=== PATIENT | male | born 1950 | race Caucasian/White ===

== ENCOUNTER 2018-05-14 09:31 | Emergency (ER) | payer MEDICARE, SELFPAY ==
[2018-05-14 09:32] VITALS: BP 128/63; PULSE 83; RESP 16; TEMP 37; BMI 29.8
--- NOTE | 2018-05-14 10:31 | RAD_ITS ---
STUDY: X-RAY - LUMBAR SPINE REASON FOR EXAM: Male, 68 years old. Status post fall. Pain. TECHNIQUE: 3 view(s) of the lumbar spine were obtained. COMPARISON: None FINDINGS: Normal lumbar lordosis. There is no substantial scoliosis. There is a normal alignment of the vertebrae. Normal vertebral bodies and endplates. There is multilevel osteophyte formation and endplate spondylosis. The soft tissue structures are unremarkable. RAD/Lumbar Spine 2 or 3 Views IMPRESSION: Degenerative changes. Electronically Signed: Raymond Gates, at 11:20 EDT Tel , Service support ,
--- NOTE | 2018-05-14 10:31 | RAD_ITS ---
We are attempting to reach Luis M Andrade to discuss findings. An addendum with communication details will be sent when the communication is complete. STUDY: X-RAY - LEFT FOOT CLINICAL: Male, 68 years old. Trauma. TECHNIQUE: 3 view(s) of the foot. COMPARISON: None. FINDINGS: Acute essentially nondisplaced fracture of the medial malleolus and distal tibia is visualized. Normal talus, calcaneus, and tarsal bones. Normal visualized subtalar, talonavicular, calcaneocuboid, tarsal and tarsometatarsal articulations. Normal metatarsi. Normal metatarsophalangeal joint of the great toe. Normal tibial and fibular sesamoid bones. Normal interphalangeal joint of the great toe. Normal phalanges of the great toe. Normal second through fifth metatarsophalangeal joints. Normal interphalangeal joints and phalanges of the lesser toes. The soft tissue structures are unremarkable. RAD/Foot min 3 Views IMPRESSION: Acute essentially nondisplaced fracture of the medial malleolus and distal tibia is visualized. Tiny bone fragments near the base of the fifth metatarsal appears chronic. Accessory cuboid bone visualized. Electronically Signed: Raymond Yajaira, at 11:23 EDT Tel , Service support ,
--- NOTE | 2018-05-14 10:31 | RAD_ITS ---
STUDY: X-RAY - LEFT TIBIA AND FIBULA REASON FOR EXAM: Male, 68 years old. Pain. Status post fall. TECHNIQUE: 4 view(s) of the tibia and fibula were obtained. COMPARISON: None. FINDINGS: Normal visualized tibia. Normal visualized fibula. There is soft tissue swelling surrounding the ankle. RAD/Tibia & Fibula 2 Views IMPRESSION: Soft tissue swelling surrounding the ankle without definitive fractures visualized. If further evaluation is warranted, MRI can be obtained. Electronically Signed: Raymond Gates, at 11:19 EDT Tel , Service support ,
--- NOTE | 2018-05-14 11:20 | ED.DCSUM_ITS ---
- ER Visit Summary Date of Service: 05/14/18 Chief Complaint: Fall off a roof History of Present Illness: The patient is a 68 M who states that yesterday he was cutting limbs from a tree while standing on his garage when he sustained a fall. States that when he landed he landed on the left foot and ankle as well as his buttocks. He notes swelling and pain from the mid tibia inferiorly to the foot. He notes pain in the lower lumbar region. Denies any bowel or bladder dysfunction. Denies any loss of muscle strength or sensation. Physical Examination: Afebrile vital signs stable Gen: Well-nourished well-developed Head: Normocephalic atraumatic Eyes: Perrl EOMI ENT: TMs clear no rhinorrhea moist mucous membranes Neck: Supple no lymphadenopathy no JVD nontender CVS: Regular rate rhythm no murmurs normal S1-S2 Respiratory: No distress clear to auscultation bilaterally chest nontender Abdomen: Soft nontender nondistended normal bowel sounds no masses Back: There is tenderness in the midline and paraspinal musculature of the lower lumbar region. Extremity: Left ankle is swollen with ecchymosis particularly medially. There is no fibular head tenderness. Skin: Normal color no rash Neuro: alert orientated ?3 CN II-XII intact normal strength sensation reflexes Psych: Normal affect normal mood Test Results: X-rays of the lumbar spine, tibia and fibula, and foot were obtained. This demonstrates a nondisplaced fracture of the medial malleolus. Degenerative changes of the lumbar spine were noted. No obvious compression fracture. Emergency Department Course and Treatment: Patient was advised he needs to be nonweightbearing of the left lower leg. He was placed in a posterior stirrup Ortho-Glass splint. He already has crutches and will make sure they are adjusted to the right height. He does not have a orthopedic surgeon and Dr. Mitchell is on-call. Impression: 1. Fall 9 feet 2. Lumbar strain 3. Left ankle fracture (medial malleolus) -closed 4. Splint by physician This note was generated with [employer] dictation software. It may contain incorrect words, spelling, and punctuation that were not noted in review of the chart prior to signing ED Disposition - Plan for ED Patient: Disposition: Home or Assisted Living Instructions: ED Fx Ankle General, ED Sprain Strain Lumbar Prescriptions: Hydrocodone Bitart/Apap 5-325 [[place] 5MG-325MG] 1 tab PO Q6H PRN PRN 3 Days #10 tab PRN Reason: Pain Referrals: jO Huffman DO [STAFF PHYSICIAN] - Care Physician,No Primary [Primary Care Provider] - (Call to arrange orthopedic follow-up.) Additional Instructions: Do not walk on the left leg Avoid anti-inflammatories (like Motrin and Aleve) Please follow-up with orthopedics.
--- NOTE | 2018-05-14 11:31 | ED.RN ---
RADIOLOGY CALLED TO REPORT FINDING ON XRAY, THIS NURSE NOTIFIED DR YOUNGER, NFO'S AT THIS TIME
[2018-05-14 12:25] VITALS: BP 122/78; PULSE 78; RESP 16; O2SAT 98
== END 2018-05-14 12:27 | disposition home or self-care (01) ==
PROVIDERS: Emergency Provider Emergency Medicine
DX: S82.55XA Nondisplaced fracture of medial malleolus of left tibia, initial encounter for closed fracture (principal); S39.012A Strain of muscle, fascia and tendon of lower back, initial encounter; W13.2XXA Fall from, out of or through roof, initial encounter; Y93.H2 Activity, gardening and landscaping; Y92.008 Other place in unspecified non-institutional (private) residence as the place of occurrence of the external cause
CPT/HCPCS: 29515; 72100; 73590; 73630; 99282

== ENCOUNTER → 2018-05-17 11:12 | Outpatient (CLI) | payer MEDICARE, SELFPAY ==
[2018-05-14 09:32] VITALS: BMI 29.8
--- NOTE | 2018-05-17 11:20 | RAD_ITS ---
STUDY: X-RAY - LEFT ANKLE REASON FOR EXAM: Injury. TECHNIQUE: 3 view(s) of the ankle. COMPARISON: None. FINDINGS: There is a nondisplaced fracture of the medial malleolus. Normal tibiotalar articulation and ankle mortise. Normal visualized talus and calcaneus. The visualized subtalar, talonavicular, calcaneocuboid and tarsal articulations are normal. There is an overlying cast. RAD/Ankle min 3 Views IMPRESSION: Nondisplaced fracture of the medial malleolus. Electronically Signed: Michael Perera MD at 15:07 EDT Tel , Service support ,
== END ==
PROVIDERS: Referring Provider Orthopaedic Surgery; Visit Provider Orthopaedic Surgery
DX: M25.572 Pain in left ankle and joints of left foot (principal)
CPT/HCPCS: 73610

== ENCOUNTER → 2018-06-07 | Outpatient (CLI) | payer MEDICARE, SELFPAY ==
[2018-06-07 08:04] VITALS: BMI 29.8
--- NOTE | 2018-06-07 08:22 | RAD_ITS ---
STUDY: X-RAY - LEFT ANKLE REASON FOR EXAM: Male, 68 years old. Left-sided ankle pain and swelling. TECHNIQUE: 3. view(s) of the ankle. COMPARISON: Radiographs of the left ankle dated May 17, 2018. FINDINGS: Normal visualized distal tibia and fibula. There is residual deformity of the medial malleolus secondary to previous fracture. Normal tibiotalar articulation and ankle mortise. Normal visualized talus and calcaneus. The joint spaces are within normal limits. The visualized metatarsals have a grossly normal appearance. There is mild soft tissue swelling. The cast has been removed since the previous study. RAD/Ankle min 3 Views IMPRESSION: Residual deformity medial malleolus possibly related to healed fracture. Electronically Signed: Heather Trevino MD at 18:42 EDT , Service support ,
== END | disposition home or self-care (01) ==
LOC: HPRAD 08:08
PROVIDERS: Referring Provider Orthopaedic Surgery; Visit Provider Orthopaedic Surgery
DX: S82.55XA Nondisplaced fracture of medial malleolus of left tibia, initial encounter for closed fracture (principal)
CPT/HCPCS: 73610

== ENCOUNTER → 2018-06-28 08:01 | Outpatient (CLI) | payer MEDICARE, SELFPAY ==
[2018-06-28 08:02] VITALS: BMI 29.8
--- NOTE | 2018-06-28 08:04 | RAD_ITS ---
HISTORY: Reassess fracture. EXAM/TECHNIQUE: XR Ankle Min 3 Views: Left. COMPARISON: 06/07/18 radiographs. FINDINGS: # of images incl. paperwork: 3 The medial malleolar fracture is almost completely healed though with the fracture line still faintly visible. No new fractures are evident. Alignment is anatomic. Mild degenerative change for age. RAD/Ankle min 3 Views IMPRESSION: Continued healing of the medial malleolar fracture. The fracture line remains faintly visible. at 0402 Reported and signed by: Howie Jose MD Electronically Signed: Howie Jose, at 4:01 EDT Tel , Service support ,
== END ==
PROVIDERS: PCP Family Medicine; Visit Provider Orthopaedic Surgery
DX: S82.52XD Displaced fracture of medial malleolus of left tibia, subsequent encounter for closed fracture with routine healing (principal)
CPT/HCPCS: 73610

== ENCOUNTER 2018-07-06 10:42 | Outpatient (RCR) | payer MEDICARE, SELFPAY ==
[2018-06-28 08:02] VITALS: BMI 29.8
--- NOTE | 2018-07-06 11:32 | HP.PTEVAL ---
Patient's Visit Information ABELARDO ROBERTS is a 68 year old M referred to Physical Therapy by Oj Huffman DO with a diagnosis of Left Malleolus Fracture. Date of Evaluation: 07/06/18 Physical Therapist: Fanny Obregon DPT - Visit Plan Plan: Patient is doing excellent after fracture he has very little pain with full ROM, strength and good balance- PT feels confident he will return to all normal activities without further incidence. Gave home exercise program and will d/c from PT - Subjective Findings: Patient reports that he fell off a garage roof and fractured left ankle on the inside 05/14/18- no surgery. Patient reports that since he has started to put weight on it its been a little sore but he has had more lower back problems. The ankle doesn't slow him down. Pain s located on the outside of the ankle. Worst: 2/10 Best: 0/10 most of the time. He took the boot off yesterday and feels great. No radiating pain- reports that the pain is dull and achy. No N/T in the toes. Dr. Padilla had x-rays and was happy with how things were healing. 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 PMHx/Meds: no changes since saw MD Padilla. - Objective Posture: good throughout. Gait: no deviation noted. Stairs:asc/desc 8 recip with 1 HR. Heel Raise/Toe Raise: able without UE A- good motion. SLS: 8 seconds then requires UE for assist. ROM:DF: 8 degrees, PF: 70 degrees, Ever: 30 degrees Inv: 40 degrees. Strength: 5/5 in ankle 5/5 knee - Rehabilitation Potential Physical Therapy Diagnosis: Patient is doing excellent after fracture he has very little pain with full ROM, strength and good balance- PT feels confident he will return to all normal activities without further incidence. Gave home exercise program and will d/c from PT Rehabilitation Potential: Excellent - Anticipated Interventions Thank you for the opportunity to evaluate your patient. For Medicare and Medicare HMO plans, please review the plan of care and approve it. It will need to be FAXED BACK to us at [phone] for Medicare purposes. For Medicare only, by signing this I certify the plan of care. Please let me know if there are questions or concerns regarding this plan of care. Physician Signature: Date:
--- NOTE | 2018-10-10 14:34 | HP.PT.NRP ---
HP - Discharge Summary (1) - Patient Information ABELARDO ROBERTS was seen in my office for initial evaluation on 07/06/18. The following Plan of Care was established for this patient: This patient was last seen in our office . Pertinent comments regarding their Physical therapy will appear below: At this point I will be discontinuing this patient from physical therapy. I would be happy to see this patient again in the future if found appropriate by the physician. Thank you! DARLINE SowT
== END 2018-07-06 19:00 | disposition home or self-care (01) ==
LOC: PT 10:42
PROVIDERS: Family Provider Family Medicine; PCP Family Medicine; Visit Provider Orthopaedic Surgery
DX: S82.52XD Displaced fracture of medial malleolus of left tibia, subsequent encounter for closed fracture with routine healing (principal)
CPT/HCPCS: 97110; 97161

== ENCOUNTER 2018-07-09 16:54 | Emergency (ER) | payer MEDICARE, SELFPAY ==
[2018-06-28 08:02] VITALS: BMI 29.8
[2018-07-09 16:54] VITALS: BP 137/78; PULSE 81; RESP 16; TEMP 36.7; O2SAT 100; BMI 28.7
--- NOTE | 2018-07-09 17:37 | CT_ITS ---
STUDY: CT ABDOMEN AND PELVIS WITH CONTRAST REASON FOR EXAM: Male, 68 years old. Abdominal pain RADIATION DOSAGE (If Supplied By Facility): CTDIvol = ( 14.91 ) mGy, DLP = ( 797.64 ) mGycm TECHNIQUE: Transaxial images were obtained from the dome of the diaphragm to the symphysis pubis without oral contrast. 100ML ml of Isovue 300 contrast was administered. Sagittal and coronal images were reconstructed. Individualized dose optimization techniques were used for this CT. COMPARISON: None. FINDINGS: There are calcified granulomata noted in the lung bases. The visualized portions of the heart and pericardium are within normal limits. There are no calcified gallstones present. The liver is within normal limits. There is a calcified granuloma noted in the liver. There are no suspicious hepatic lesions. The spleen is normal in size. There are calcified granulomata noted in the spleen The pancreas is within normal limits. The adrenal glands are within normal limits. There are no renal or ureteral stones. There is no hydronephrosis. There are no focal renal lesions. There is a mucosal outpouching of the distal stomach with associated wall thickening (image 42 series 601) which likely represents a gastric ulcer with adjacent inflammation. There is adjacent mild mesenteric lymphadenopathy (image 42 series 2) and a malignant ulcer should be excluded. There is no bowel obstruction or inflammation. The appendix is visualized and appears normal. There is a small left inguinal hernia which contains nonobstructed bowel. There is a small right inguinal hernia which contains the right anterior wall of the urinary bladder. There is a 4.5 x 4.0 cm infrarenal abdominal aortic aneurysm There is no abdominal or pelvic free air, free fluid, fluid collection or lymphadenopathy. There is a fracture of the superior endplate of the L2 vertebral body which appears acute to subacute in nature. Correlation for pain in this area is recommended. CT/Abdomen/Pelvis WITH Contrast IMPRESSION: Findings likely representing a gastric ulcer with adjacent inflammation. Adjacent mild mesenteric lymphadenopathy. A malignant ulcer should be excluded. No bowel obstruction. Normal appendix. Left inguinal hernia which contains nonobstructed bowel. Right inguinal hernia which contains a small portion of the urinary bladder. 4.5 x 4.0 cm infrarenal abdominal aortic aneurysm. Fracture of the superior endplate of the L2 vertebral body which appears acute to subacute in nature. Correlation for pain in this area is recommended. Electronically Signed: Christiano Boggs, at 20:08 EDT Tel , Service support ,
--- NOTE | 2018-07-09 17:38 | EKG12_ITS ---
Test Reason : ABD PAIN Blood Pressure : / mmHG Vent. Rate : 063 BPM Atrial Rate : 063 BPM P-R Int : 128 ms QRS Dur : 100 ms QT Int : 370 ms P-R-T Axes : 070 061 064 degrees QTc Int : 378 ms Normal sinus rhythm Normal ECG Confirmed by JENNIFER CALLE, DOUG ([id number]), television news video editor BALBINA CASTILLO ([id number]) on 07/10/2018 11:53:48 AM Referred By: MATT Confirmed By:DOUG RODRIGUEZ MD
[2018-07-09] MEDS: Ondansetron 4 MG/2 ML Vial IV (17:51)
[2018-07-09] MEDS: 0.9% Normal Saline 1,000 ML 1000 ML IV (17:51)
[2018-07-09 17:54] LABS: Absolute Neutrophil Count 4.2 X10^3/uL (2.0-7.7); Basophil# 0.02 X10^3/uL; Basophil% 0.3 % (0-1); Eosinophil# 0.05 X10^3/uL; Eosinophils% 0.8 % (0-5); Hematocrit 29.9 % (40-54); Hemoglobin 9.3 g/dl (13.0-16.5); Lymphocyte % 23.8 % (19-41); Mean Corp Hgb Conc 31.1 g/gl (32-36); Mean Corpuscular Volume 86.7 fL (80-94); Mean Platelet Vol. 7.7 fl (6.2-12.0); Monocyte# 0.53 X10^3/uL; Monocyte% 8.4 % (0-10); Neutrophil # 4.21 X10^3/uL (2.7-7.7); Neutrophil % 66.7 % (47-70); POSITIVE COUNT NO; POSITIVE DIFFERENTIAL NO; POSITIVE MORPHOLOGY NO; Platelet Count 318 K/mm3 (150-450); RBC Distribution Width CV 13.8 % (11.6-14.6); Red Blood Count 3.45 M/mm3 (4.6-6.2); White Blood Count 6.3 K/mm3 (4.4-11.0)
[2018-07-09 18:18] LABS: ALB/GLOB Ratio 0.8 RATIO (0.9-2.4); AST(SGOT) 13 U/L (15-37); Alanine Aminotransfer ALT/SGPT 15 U/L (16-61); Albumin, Serum 3.1 g/dL (3.2-5.0); Alkaline Phosphatase 98 U/L (45-117); Anion Gap 5 (5-15); BUN 13 mg/dL (7-18); BUN/Creat Ratio 12.6 RATIO (10-20); Calcium,Total 8.4 mg/dL (8.5-10.1); Chloride 103 mmol/L (98-107); Creatinine, Serum 1.03 mg/dL (0.70-1.30); EST Glomerular Filtration Rate 76 mL/min (>60); Est Glom Filt Rate - Afr Amer 92 mL/min (>60); Estimated Creatinine Clearance 61.94 ml/min; Globulin 3.9 g/dL (2.2-4.2); Glucose 133 mg/dL (74-106); Lipase 117 U/L (73-393); Potassium 4.4 mmol/L (3.5-5.1); Sodium Level 137 mmol/L (136-145)
--- NOTE | 2018-07-09 18:32 | ED.VISSUMM ---
- ER Visit Summary Date of Service: 07/09/18 Chief Complaint: Abdominal pain History of Present Illness: The patient is a 68 M who presents with abdominal pain that has been getting worse over the past 2 days. Patient states the pain is over the epigastric area. Patient states the pain is constant and aching. Patient admits to nausea but denies any vomiting. Patient denies any diarrhea, melena, or hematochezia. Patient denies any urinary complaints. Patient denies any chest pain or shortness of breath. Patient states nothing makes the pain better or worse. Physical Examination: Vital signs are stable. Patient is afebrile. Patient is in no acute distress. Oral mucosa is pink and moist. Neck is supple. Trachea is midline. There is no JVD noted. Heart was regular rate and rhythm. Lungs are clear and equal bilaterally. Abdomen is soft. Bowel sounds are normal. There is some mild epigastric tenderness. There is no rebound or guarding noted. Cranial nerves II through XII are intact. There are no focal motor or sensory deficits noted. Test Results: CBC showed a hemoglobin of 9.3 and hematocrit 29.9. There are no prior values to compare with. Comprehensive metabolic profile was normal. Troponin was normal. EKG showed normal sinus rhythm with a rate of 63. There are no acute ST or T wave changes noted. CT scan of the abdomen and pelvis was obtained. There is a gastric ulcer with some inflammation. There is some adjacent lymphadenopathy. There is no bowel obstruction. There is a left inguinal hernia which contains nonobstructive bowel. There is a right inguinal hernia which contains a small portion of the urinary bladder. There is a 4.5 x 4 cm infrarenal abdominal aortic aneurysm. These were interpreted by the radiologist. Emergency Department Course and Treatment: Patient was given IV fluids and Zofran here. Patient was feeling better on reevaluation. Patient was given a prescription for Prilosec. Patient was instructed to follow-up with his primary care physician in 3 to 5 days. Patient understood and was agreeable with the plan. All questions were answered. Disposition: Discharge home Impression: 1. Gastric ulcer This note was generated with [employer] dictation software. It may contain incorrect words, spelling, and punctuation that were not noted in review of the chart prior to signing ED Disposition - Plan for ED Patient: Disposition: Home or Assisted Living Diagnosis: Gastric ulcer Instructions: ED PUD Prescriptions: Omeprazole [Prilosec] 20 mg PO DAILY #30 cap Referrals: Ezekiel Carrasco MD [Primary Care Provider] - 3-5 Days
[2018-07-09 19:09] VITALS: RESP 18
[2018-07-09 21:21] VITALS: BP 130/65; PULSE 75; RESP 17
== END 2018-07-09 21:22 | disposition home or self-care (01) ==
PROVIDERS: Emergency Provider Emergency Medicine; Family Provider Family Medicine; PCP Family Medicine
DX: K25.9 Gastric ulcer, unspecified as acute or chronic, without hemorrhage or perforation (principal); K40.20 Bilateral inguinal hernia, without obstruction or gangrene, not specified as recurrent; I71.4 Abdominal aortic aneurysm, without rupture; Z72.0 Tobacco use
CPT/HCPCS: 74177; 80053; 83690; 84484; 85025; 93005; 96361; 96374; 99283; J7030; Q9967; A4216; J2405

== ENCOUNTER → 2018-07-17 14:23 | Outpatient (CLI) | payer MEDICARE, SELFPAY ==
[2018-07-09 16:54] VITALS: BMI 28.7
[2018-07-17 16:03] LABS: Hematocrit 29.6 % (40-54); Mean Corp Hgb Conc 30.4 g/gl (32-36); Mean Corpuscular Hgb 25.9 pg (27.0-32.0); Mean Corpuscular Volume 85.1 fL (80-94); Mean Platelet Vol. 8.8 fl (6.2-12.0); Platelet Count 373 K/mm3 (150-450); RBC Distribution Width CV 14.6 % (11.6-14.6); RBC Distribution Width SD 43.6 fl (35.1-43.9); RET-HE 18.8 pg (30-35); Red Blood Count 3.48 M/mm3 (4.6-6.2); Reticulocyte Count 1.23 % (0.5-1.5); White Blood Count 5.7 K/mm3 (4.4-11.0)
[2018-07-17 16:07] LABS: Scan Indicated on CBC? Y/N YES- FLAGS NOTED
[2018-07-17 16:11] LABS: Anion Gap 8 (5-15); BUN 16 mg/dL (7-18); BUN/Creat Ratio 14.8 RATIO (10-20); Calcium,Total 8.8 mg/dL (8.5-10.1); Chloride 102 mmol/L (98-107); Creatinine, Serum 1.08 mg/dL (0.70-1.30); EST Glomerular Filtration Rate 72 mL/min (>60); Est Glom Filt Rate - Afr Amer 87 mL/min (>60); Ferritin 14 ng/mL (26-388); Glucose 106 mg/dL (74-106); Iron 12 ug/dL (65-175); Potassium 4.4 mmol/L (3.5-5.1); Sodium Level 139 mmol/L (136-145)
== END ==
PROVIDERS: Family Provider Family Medicine; PCP Family Medicine; Visit Provider Family Medicine
DX: D64.9 Anemia, unspecified (principal); R03.0 Elevated blood-pressure reading, without diagnosis of hypertension
CPT/HCPCS: 36415; 80048; 82728; 83540; 85027; 85045

== ENCOUNTER → 2018-08-04 11:50 | Outpatient (CLI) | payer MEDICARE, SELFPAY ==
[2018-07-09 16:54] VITALS: BMI 28.7
--- NOTE | 2018-08-04 11:52 | RAD_ITS ---
STUDY: X-RAY - LUMBAR SPINE REASON FOR EXAM: Male, 68 years old. Back pain TECHNIQUE: 5 view(s) of the lumbar spine were obtained. COMPARISON: CT from 07/09/2018 , lumbar spine x-ray of 05/14/2018 FINDINGS: Normal lumbar lordosis. There is no substantial scoliosis. There is a normal alignment of the vertebrae. There is diffuse demineralization with multi-level endplate spondylosis. Disc space narrowing at multiple levels, most conspicuous at L5-S1 with moderate facet arthropathy at L4-L5 and L5-S1. Compression deformities of L2 and L5 are similar since prior abdomen/pelvis CT although increased degree of compression/superior trabecular compression of L2 since prior lumbar spine x-ray. Abdominal aortic atherosclerosis and aneurysm as seen on prior CT. RAD/L/S Spine Min 4 Views IMPRESSION: 1. L2 and L5 compression fractures, stable since 07/09/2018 CT (increased L2 compression since prior lumbar spine x-ray 05/14/2018). 2. Facet dominant degenerative changes, as above. 3. Abdominal aortic aneurysm. Electronically Signed: Aamir Ledesma MD at 11:21 EDT , Service support ,
== END ==
PROVIDERS: Family Provider Family Medicine; PCP Family Medicine; Referring Provider Family Medicine; Visit Provider Family Medicine
DX: M54.9 Dorsalgia, unspecified (principal)
CPT/HCPCS: 72110

== ENCOUNTER → 2018-10-05 14:59 | Outpatient (CLI) | payer MEDICARE, SELFPAY ==
--- NOTE | 2018-10-05 15:11 | MRI_ITS ---
STUDY: MRI LUMBAR SPINE WITHOUT CONTRAST REASON FOR EXAM: Male, 68 years old. Lumbar fractures and pain right leg TECHNIQUE: Standardized fat and water weighted pulse sequences were obtained in the sagittal and axial planes. COMPARISON: Radiograph July 27, 2018 FINDINGS: Mild compression fracture T12 and L5 with less than 5% loss of height. T12-L1: Normal endplates. Normal disc height, hydration and morphology. Normal bilateral facet joints. Normal central canal and bilateral lateral recesses. Normal bilateral intervertebral neural foramina. Normal lumbar lordosis. There is no substantial scoliosis. Normal conus medullaris that terminates at the L1 level. L1-2: Normal endplates. Normal disc height, hydration and morphology. Normal bilateral facet joints. Normal central canal and bilateral lateral recesses. Normal bilateral intervertebral neural foramina. L2-3: Normal endplates. Normal disc height, hydration and morphology. Normal bilateral facet joints. Normal central canal and bilateral lateral recesses. Normal bilateral intervertebral neural foramina. Mild compression fracture L2 with 5-10% loss of height and T1 and T2 lengthening. No retropulsion. L3-4: Normal endplates. Mild broadbase annular bulge. Normal disc height, hydration and morphology. Normal bilateral facet joints. Normal central canal and bilateral lateral recesses. Moderate narrowing bilateral intervertebral neural foramina. L4-5: Normal endplates. Normal disc height, hydration and morphology. Hypertrophic bilateral facet joints. Normal central canal and bilateral lateral recesses. Narrowed bilateral intervertebral neural foramina. L5-S1: Normal endplates. Normal disc height, hydration and morphology. Normal bilateral facet joints. Normal central canal and bilateral lateral recesses. Narrowed bilateral intervertebral neural foramina. Mild annular disc marginal osteophyte. Normal visualized sacral ala. Normal visualized paraspinous soft tissue structures. 4.3 cm abdominal aortic aneurysm. MRI/Spine Lumbar (Routine) IMPRESSION: Multiple mild compression fractures as above. L2 appears acute. No retropulsion. Multilevel neural foraminal narrowing. Electronically Signed: Prem Chilel MD at 22:44 EDT , Service support ,
--- NOTE | 2018-10-05 15:15 | RAD_ITS ---
STUDY: X-RAY - ORBITS REASON FOR EXAM: Male, 68 years old. This study is being performed as a clearance examination for exclusion of orbital metal, prior to the performance of an MRI examination. TECHNIQUE: 2 view(s) of the orbits were obtained. COMPARISON: None. FINDINGS: Normal bilateral orbits without a metallic orbital foreign body. Normal visualized facial bones. Normal paranasal sinuses. The soft tissue structures are unremarkable. RAD/Orbits for Foreign Body IMPRESSION: No demonstrated metallic orbital foreign body. The patient is cleared for an MRI examination. Electronically Signed: Lebron Briseno, at 15:32 EDT , Service support ,
== END ==
PROVIDERS: Family Provider Family Medicine; PCP Family Medicine; Referring Provider Anesthesiology; Visit Provider Anesthesiology
DX: M54.16 Radiculopathy, lumbar region (principal)
CPT/HCPCS: 70030; 72148

== ENCOUNTER → 2018-11-02 06:23 | Outpatient (CLI) | payer MEDICARE, SELFPAY ==
[2018-11-01 08:36] VITALS: BMI 26.8
[2018-11-02 07:17] LABS: Absolute Neutrophil Count 4.2 X10^3/uL (2.0-7.7); Basophil# 0.06 X10^3/uL; Basophil% 0.9 % (0-1); Eosinophil# 0.17 X10^3/uL; Eosinophils% 2.5 % (0-5); Hematocrit 35.6 % (40-54); Hemoglobin 9.9 g/dL (13.0-16.5); Mean Corp Hgb Conc 27.8 g/dL (32-36); Mean Corpuscular Hgb 22.5 pg (27.0-32.0); Mean Corpuscular Volume 80.9 fL (80-94); Mean Platelet Vol. 8.7 fl (6.2-12.0); Monocyte# 0.69 X10^3/uL; NRBC Flagged by Analyzer 0 % (0-5); Neutrophil # 4.19 X10^3/uL (2.7-7.7); Neutrophil % 60.5 % (47-70); POSITIVE MORPHOLOGY YES; Platelet Count 200 K/mm3 (150-450); RBC Distribution Width CV 21.1 % (11.6-14.6); RBC Distribution Width SD 61.8 fl (35.1-43.9); White Blood Count 6.9 K/mm3 (4.4-11.0)
[2018-11-02 07:31] LABS: Differential Indicated SCAN CRITERIA MET
[2018-11-02 07:48] LABS: Anisocytosis 1+; Hypochromasia 2+; Platelet Estimate ADEQUATE (ADEQ)
[2018-11-02 07:52] LABS: Cholesterol 189 mg/dL (200); High Density Lipoprotein 55 mg/dL; Triglycerides 121 mg/dL; Very Low Density Lipoprotein 24 mg/dL (5-40)
[2018-11-02 08:00] LABS: Anion Gap 4 (5-15); BUN 16 mg/dL (7-18); BUN/Creat Ratio 16.8 RATIO (10-20); Calcium,Total 8.8 mg/dL (8.5-10.1); Chloride 107 mmol/L (98-107); Creatinine, Serum 0.95 mg/dL (0.70-1.30); EST Glomerular Filtration Rate 84 mL/min (>60); Est Glom Filt Rate - Afr Amer 101 mL/min (>60); Glucose 100 mg/dL (74-106); Potassium 4.3 mmol/L (3.5-5.1); Sodium Level 140 mmol/L (136-145)
== END ==
PROVIDERS: Family Provider Family Medicine; PCP Family Medicine; Referring Provider Surgery; Visit Provider Surgery
DX: I10 Essential (primary) hypertension (principal); D64.9 Anemia, unspecified; K27.9 Peptic ulcer, site unspecified, unspecified as acute or chronic, without hemorrhage or perforation; R03.0 Elevated blood-pressure reading, without diagnosis of hypertension
CPT/HCPCS: 36415; 80048; 80061; 85025

== ENCOUNTER → 2018-11-13 12:18 | Outpatient (CLI) | payer MEDICARE, SELFPAY ==
[2018-11-01 08:36] VITALS: BMI 26.8
--- NOTE | 2018-11-13 12:20 | CDU_ITS ---
Reason For Study: Left carotid bruit Rt. Velocities/BP Lt. Velocities/BP Prox CCA 70.8/16 cm/sec. Prox CCA 87.9/11.8 cm/sec. Mid CCA 55.2/17.3 cm/sec. Mid CCA 69.5/13 cm/sec. Dist CCA 46.6/12.6 cm/sec. Dist CCA 84.3/10.6 cm/sec. Prox ICA 41.3/9.9 cm/sec. Prox ICA 75.9/16.7 cm/sec. Mid ICA 65.7/18.6 cm/sec. Mid ICA 62.4/19.2 cm/sec. Dist ICA 70.2/23 cm/sec. Dist ICA 80.6/24.1 cm/sec. Rt. ICA/CCA = 1.3. Lt. ICA/CCA = 1.0. Prox ECA 67.4/6 cm/sec. Prox ECA 59.7/4.4 cm/sec. Rt. Vert. 67.4/20.1 cm/sec. Lt. Vert. 73.2/20.4 cm/sec. Right Extracranial There is homogeneous, smooth atherosclerotic plaque noted in the right common carotid artery. There is heterogeneous, irregular atherosclerotic plaque noted in the right internal carotid artery. There is heterogeneous, irregular atherosclerotic plaque noted in the right external carotid artery. Antegrade flow is noted in the right vertebral artery. Left Extracranial There is homogeneous, smooth atherosclerotic plaque noted in the left common carotid artery. There is heterogeneous, irregular atherosclerotic plaque noted in the left internal carotid artery. The atherosclerotic plaque causes acoustic shadowing. There is heterogeneous, irregular atherosclerotic plaque noted in the left external carotid artery. Antegrade flow is noted in the left vertebral artery. Procedure Carotid Duplex 51681. Exam performed in department. Interpretation Summary Irregular calcific plague right distsal common carotid and proximal right internal and external carotids <50% stenosis right internal carotid <50% stenosis right external carotid Irregular calcific plague proximal left internal and external carotids <50% stenosis left internal carotid <50% stenosis left external carotid Patent, antegrade, and <50% stenosis bilateral vertebrals Ordering Physician: Fortunato Kaye Referring Physician: Andrés Carrasco MD Performed By: Hiwot Ferrari RVT
--- NOTE | 2018-11-13 12:20 | ECHOD_ITS ---
Reason For Study: Abnormal EKG Procedure This was a 2D Doppler, Color Flow transthoracic echocardiogram. Exam performed in department. Left Ventricle Normal LV size. Concentric left ventricular hypertrophy. The estimated ejection fraction is 60 %. No evidence for diastolic dysfunction. No regional wall motion abnormalities noted. Right Ventricle Normal RV size. Normal systolic function. Atria Normal left atrium. Normal right atrium. No doppler evidence for ASD. Mitral Valve There is no mitral valve stenosis. Trivial mitral valve insufficiency. Tricuspid Valve There is no tricuspid stenosis. Unable to estimate RV systolic pressure due to insufficient tricuspid regurgitant envelope. Trivial tricuspid valve insufficiency. Aortic Valve Moderate diffuse aortic valve thickening. Severe aortic stenosis. Moderate (2+) aortic valve insufficiency. Pulmonic Valve There is no pulmonic valvular stenosis. No pulmonic valve insufficiency. Great Vessels Normal aortic root. Pericardium/Pleural No pericardial effusion. MMode/2D Measurements & Calculations LVIDd: 5.8 cm IVSd: 1.3 cm LVOT diam: 2.0 cm LVIDs: 3.5 cm LVPWd: 1.1 cm LVOT area: 3.1 cm2 RVDd: 3.1 cm FS: 39.9 % ACS: 0.52 cm LAV(MOD-bp): 51.5 ml Aortic Valve Planimetry: 0.50 cm2 LA dimension: 3.7 cm LAV(MOD-bp) Indexed: 27.7 ml/m2 LAV(MOD-sp2): 52.5 ml LAV(MOD-sp4): 46.7 ml LA A4 area: 16.8 cm2 RA A4 area: 17.2 cm2 Time Measurements MV dec time: 0.17 sec Doppler Measurements & Calculations MV E max pasha: 79.9 cm/sec Lat Peak E' Pasha: 9.8 cm/sec Med Peak E' Pasha: 7.5 cm/sec MV A max pasha: 94.0 cm/sec E/E' lat: 8.1 E/E' med: 10.7 MV E/A: 0.85 MV V2 max: 95.9 cm/sec MV P1/2t max pasha: 79.3 cm/sec Ao V2 max: 513.3 cm/sec MV max P.7 mmHg MV P1/2t: 76.7 msec Ao max P.4 mmHg MV V2 mean: 52.7 cm/sec MV dec slope: 302.6 cm/sec2 Ao V2 mean: 370.0 cm/sec MV mean P.3 mmHg Ao mean P.5 mmHg MV V2 VTI: 27.4 cm MVA(P1/2t): 2.9 cm2 Ao V2 VTI: 119.5 cm MVA(VTI): 2.4 cm2 JAVID(I,D): 0.56 cm2 JAVID(V,D): 0.58 cm2 AI max pasha: 526.4 cm/sec LV V1 max: 94.9 cm/sec SV(LVOT): 66.9 ml AI max P.8 mmHg LV V1 max P.6 mmHg LV V1 mean P.8 mmHg AI dec slope: 451.6 cm/sec2 LV V1 mean: 61.1 cm/sec AI P1/2t: 341.4 msec LV V1 VTI: 21.4 cm PA V2 max: 85.7 cm/sec Interpretation Summary The estimated ejection fraction is 60 %. Trivial mitral valve insufficiency. Unable to estimate RV systolic pressure due to insufficient tricuspid regurgitant envelope. Trivial tricuspid valve insufficiency. Severe aortic stenosis. Moderate (2+) aortic valve insufficiency. No evidence for diastolic dysfunction. Ordering Physician: Fortunato Kaye Referring Physician: Andrés Carrasco MD Performed By: Con Mccarty RCS
== END ==
PROVIDERS: Family Provider Family Medicine; PCP Family Medicine; Referring Provider Surgery; Visit Provider Surgery
DX: R93.1 Abnormal findings on diagnostic imaging of heart and coronary circulation (principal); R09.89 Other specified symptoms and signs involving the circulatory and respiratory systems; R22.2 Localized swelling, mass and lump, trunk
CPT/HCPCS: 93306; 93880

== ENCOUNTER 2018-11-17 07:21 | Day surgery (SDC) | payer MEDICARE, SELFPAY ==
[2018-11-01 08:36] VITALS: BMI 26.8
--- NOTE | 2018-11-01 09:06 | HP_ITS ---
Intake Vital Signs 11/01/18 Height 5 ft 6 in 11/01/18 Weight: 166 lb 11/01/18 Body Mass Index (BMI) 26.8 11/01/18 Blood Pressure 158/66 H 11/01/18 Blood Pressure Location Rt brachial 11/01/18 Respiratory Rate 16 11/01/18 Pulse Rate 69 11/01/18 Pulse Source Monitor 11/01/18 Temperature 98.2 F 11/01/18 Pulse Ox 96 11/01/18 Oxygen Delivery Method room air 11/01/18 Body Mass Index (BMI) 28.7 11/01/18 Height 5 ft 6 in 11/01/18 Weight: 166 lb 11/01/18 Body Mass Index (BMI) 26.8 11/01/18 Blood Pressure 158/66 H 11/01/18 Blood Pressure Location Rt brachial 11/01/18 Respiratory Rate 16 11/01/18 Pulse Rate 69 11/01/18 Pulse Source Monitor 11/01/18 Temperature 97.5 F L 11/01/18 Pulse Ox 96 11/01/18 Oxygen Delivery Method room air 10/25/18 Body Mass Index (BMI) 28.7 Intake Visit Reasons: Lump on Back Upholstery Covers Inspector Required: No Is patient in pain?: No Allergies No Known Allergies Allergy (Verified 11/01/18 08:23) Medications lisinopril 20 mg tablet 20 mg PO DAILY #30 tab 11/01/18 [History Confirmed 11/01/18] tiotropium bromide 2.5 mcg/actuation mist for inhalation 2 puff INHALATION DAILY #4 g 11/01/18 [History Confirmed 11/01/18] [facility] Medical History Anemia (Acute) Subcutaneous mass of back (Acute) PUD (peptic ulcer disease) (Acute) Cough (Acute) SOB (shortness of breath) (Acute) Hypertension (Chronic) Arthritis (Acute) Surgical History No history of previous surgery (Acute) Family History Sister Asthma Mother Arthritis Diabetes Brother Cancer Unsure what kind- just a lump on his neck Social History (Updated 11/01/18 @ 09:06 by Abelardo Kaye MD) Smoking Status: Current every day smoker quit status: considering quitting alcohol intake: former substance use type: does not use caffeine: Yes what type of physical activity do you participate in: other frequency: 3-4 times per week seatbelt use: always HPI HPI HPI: ABELARDO ROBERTS, is a 68 M who presents to the office today for HPI HPI Surgical H&P: Yes HPI: ABELARDO ROBERTS, is a 68 M who presents to the office today for surgical consultation regarding a mass of his upper back. During the interview it was detected that he has multiple significant issues. He states to a certain degree he is aware of some of them but to another degree not aware. We had an opportunity to discuss multiple different particular findings with him today. 68-year-old gentleman who has had a mass on his back for a year that is been progressively enlarging. He was wondering as to the etiology. When he leans back in the chair he can feel it and it feels taut. He has not had any drainage. Then history continued to overall. May 2018 he fell from a garage. He was seen in the emergency room because he was complaining of back pain and ankle pain. By report he was told that he had a 4.3 cm abdominal aortic aneurysm. He is also seeing pain management. Then he was very nonspecific but complained that he had some epigastric pain and vomited some blood so July 09, 2018 he went back to the emergency room. A CT scan was obtained demonstrating multiple findings. There was felt to be mucosal outpouching of the distal stomach with wall thickening suspected gastric ulcer with adjacent inflammation there was adjacent mild mesenteric adenopathy could not exclude a malignant ulcer. There is a left inguinal hernia with nonobstructive bowel involvement. There was a right inguinal hernia with involvement of the anterior wall of the urinary bladder. He has a 4.5 x 4 similar infrarenal abdominal aortic aneurysm. There is a fracture of L2. An EKG showed normal sinus rhythm. White blood cell count was 6.3 with a hemoglobin 9.3 hematocrit 29.9 platelet count 3 and 18,000 with 66% segs. BUN is 13 creatinine 1.03 with a glucose of 133. Troponin was normal. Liver function tests were normal. On October 05, 2018 he had a spine MRI showing multiple mild compression fractures. L2 appeared acute. Multilevel neuroforaminal narrowing. On my exam today I detected both carotid and cardiac murmur. He reminds me that he did have a remote echocardiogram. We investigated the previous [facility] material June 08, 2012 identify an echocardiogram with an ejection fraction of 60%. And mild mitral leaflet thickening. 1+ tricuspid regurgitation. Mild aortic stenosis with 1-2+ aortic insufficiency. The gradient was peak over mean 27 over 12 mmHg with a V-max of 2.6 m/s. There has been no prior echocardiogram for comparison ROS General General: No weight change, appetite, fatigue, colon cancer, breast cancer or weakness HEENT HEENT: No difficulty swallowing, eye injury, eye surgery, swollen glands or hoarseness Endo Endocrine: No thyroid disease, diabetes mellitus, thyroid cancer, Hair loss, heat intolerance or cold intolerance Skin Skin: No rash or changing moles Musc Musculoskeletal: Yes back problems and arthritis; no rheumatoid arthritis, gout or joint pain Cardio Cardiovascular: Yes high blood pressure; no murmur, pacemaker, heart disease, atrial fibrillation, heart attack, heart stent, palpitations, shortness of breat with exertion or chest pain Psych Psychiatric: No depression, anxiety or hearing voices Resp Respiratory: Yes shortness of breath, No sleep apnea, Yes cough, No COPD, No asthma, No emphysema, No wheezing Gastro Gastrointestinal: No abdominal pain, No nausea or vomiting, No diarrhea, No constipation, No blood in stool, No acid reflux, No hemorrhoids, Yes ulcers, No gallbladder problem, No black,tarry stools Miguel A Hematologic: No blood thinners, No blood disorders, No bleeding, Yes anemia, No blood clots Neuro Neurologic: No system reviewed and no additional complaints, except as docu, No as per HPI, No abnormal walking, No abnormal hearing, No abnormal movements, No abnormal speech, No behavioral changes, No burning sensations, No confusion, No seizure-like activity, No unsteadiness, No dizziness, No localized weakness, No frequent falls, No headache(s), No lack of coordination, No loss of vision, No memory loss, No numbness, No other visual disturbances, No radiating pain, No restless legs, No sensory deficit, No fainting, No tingling, No tremor(s), No weakness, No other Exam Const General: cooperative, no acute distress Nutritional Appearance: average body habitus Orientation: alert, awake Other: The patient appears much older than stated age. Heavy stain of tobacco on his eli and fingers HENMT Other: Moist oral mucosa Eyes General: appearance normal, both eyes and all related structures Chest Other: Increased anterior posterior diameter Mid scapular back, 6 cm diameter subcutaneous mass fixed to the skin. Not deeply fixed. Taunt. No skin pore identified Resp Auscultation: clear to auscultation bilaterally Other: Diminished respiratory excursion, clear throughout Cardio Rate: regular rate Rhythm: regular rhythm Heart Sounds: no murmurs Other: Harsh 3/6 systolic ejection murmur Bilateral radials and brachials 3+. Bilateral carotids 3+ with harsh 3/6 bruit on the left Bilateral femorals 3+ GI Palpation: soft Auscultation: normal bowel sounds Other: Firm abdomen, I am not able to palpate the aorta Other: Quite significant bilateral inguinal hernias with suspected bowel involvement bilaterally. Both are reducible with supine positioning. Testicles are descended with atrophy Musc Cervical Spine: other (Mild kyphosis) Skin Other: Bilateral upper extremities demonstrate abrasions. Right hand has significant staining from tobacco Neuro Cognition: normal cognition Other: Intention tremor right hand Extrem General: no calf tenderness bilaterally Psych Affect: normal affect Assessment & Plan Problems 1. Abdominal aortic aneurysm (AAA) without rupture I71.4 2. Left carotid bruit R09.89 3. Cardiac murmur R01.1 4. Anemia, unspecified type D64.9 5. PUD (peptic ulcer disease) K27.9 6. Subcutaneous mass of back R22.2 7. Non-recurrent bilateral inguinal hernia without obstruction or gangrene K40.20 8. Tobacco dependence F17.200 Plan Rather complicated 68-year-old gentleman The mid scapular mass of his back is indeterminate. This could represent a taut sebaceous cyst or possibly fibrolipoma. I recommend office excision under local anesthetic. He is aware of the technique, benefits, risks and concurs He has a history of significant anemia and abnormal CT is questioning the possibility of malignant gastric ulcer. I recommend a repeat of the laboratory and a combined upper and lower endoscopy secondary to his history of significant anemia. This may be secondary to NSAID use and treatment of his lumbar fracture. He has never had a previous colonoscopy. He is aware of the technique, benefits, risks, alternatives. Because of the strong left carotid bruit and cardiac murmur I recommend carotid duplex imaging and echocardiogram. His previous echo was 2012 and he did not have one prior to that I have strongly recommended to the patient that he immediately cease his tobacco use to make him a better potential interventional candidate. Findings also detected a 4.5 x 4 cm abdominal aortic aneurysm. I recommend close follow-up with aortic duplex imaging at 6 months and surgical follow-up at that time. He has bilateral inguinal hernias with the left side certainly involving bowel in the right side said to involve the anterior wall of the urinary bladder. Hopefully he would be a future candidate for a laparoscopic bilateral inguinal hernia repair. We will continue with his current testing to identify how we might proceed I appreciate the opportunity of assisting with the surgical care. The patient is interested in trying to decipher and further investigate the above issues. I will assist as possible. I very much appreciate the kind opportunity of assisting with the surgical care. CC: Dr. Andrés Kaye M.D., F.A.C.S. Orders Orders: Echo Complete Today R09.89, R22.2, R93.1 Carotid Duplex Ultrasound Today R09.89 Basic Metabolic Profile (BMP) Today D64.9, I10, K27.9 CBC W/Diff, Automated Today D64.9 Coding Level of Care Code Off vis,new,level 4 Diagnoses Abdominal aortic aneurysm (AAA) without rupture I71.4 ??Presence of rupture: without rupture Left carotid bruit R09.89 Cardiac murmur R01.1 Anemia, unspecified type D64.9 ??Anemia type: unspecified type PUD (peptic ulcer disease) K27.9 Subcutaneous mass of back R22.2 Non-recurrent bilateral inguinal hernia without obstruction or gangrene K40.20 ??Obstruction and gangrene presence: without obstruction or gangrene ??Recurrence: non-recurrent Tobacco dependence F17.200 11/01/18 0906 <Electronically signed by Abelardo grigsby MD> Date _ Abelardo Kaye MD I have discussed this patient with Dr. Randle. He believes as I do that is reasonable to pursue the endoscopic procedures to evaluate for source of anemia. The patient will then have cardiology follow-up regarding his severe aortic stenosis. Abelardo Kaye M.D., F.A.C.S.
--- NOTE | 2018-11-17 | COLBX_PTH ---
PATIENT: ABELARDO ROBERTS LOC: EN U#:[id number] AGE/SX: 68/M ROOM: RE11/17/[address]: Dr. Abelardo Kaye MD : 1950 BED: DIS: 11/17/2018 SPEC #: [id number] RECD: 11/17/18 14:02 STATUS: EZEQUIEL ESTELLA #: [id number] MORENITA: 11/17/18 00:[address]: Abelardo Kaye DEPT: SURGICAL PATHOLOGY RECD BY: Kendall Antunez ENTERED: 11/17/18 14:03 SP TYPE: COLON BX OT DR: Dr. Andrés Carrasco MD Tissues: A - Duodenum, NOS B - Pyloric antrum C - Esophagus, NOS D - Sigmoid colon biopsy E - Rectum, NOS Procedures: Surgery Specimen Level IV HEADER OPERATION: [place] [place] DIAGNOSIS: Anemia TISSUE SUBMITTED: A - Duodenal biopsy, B - Prepyloric mass biopsy, C - Distal esophagus biopsy, D - Biopsy of distal sigmoid polyp, E - Rectal polyp biopsy MICROSCOPIC DIAGNOSIS A. Duodenum, biopsy: No significant pathologic change. B. Prepyloric mass, biopsy: Fragments of gastric mucosa with focal hyperplastic change. Focal acute gastritis. C. Distal esophagus, biopsy: Focal changes of reflux. D. Distal sigmoid colon polyp, biopsy: Hyperplastic polyp. E. Rectal polyp, biopsy: Fragments of hyperplastic polyp. AM:dread 11/20/18 MICROSCOPIC DESCRIPTION Slides are reviewed. GROSS DESCRIPTION A - Received in fixative is one container labeled with the patient's name and designated duodenal biopsy. The specimen consists of one irregular fragment of light white soft tissue that measures 0.4 x 0.3 x 0.1 cm. The specimen is totally submitted in one cassette. B - Received in fixative is one container labeled with the patient's name and designated prepyloric mass biopsy. The specimen consists of multiple irregular fragments of light white soft tissue that in aggregate measure 1 x 0.3 x 0.1 cm. The specimen is totally submitted in one cassette. C - Received in fixative is one container labeled with the patient's name and designated distal esophagus biopsy. The specimen consists of multiple irregular fragments of light white soft tissue that in aggregate measure 1 x 0.2 x 0.1 cm. The specimen is totally submitted in one cassette. D - Received in fixative is one container labeled with the patient's name and designated distal sigmoid polyp. The specimen consists of one irregular fragment of light white soft tissue that measures 0.4 x 0.3 x 0.1 cm. The specimen is totally submitted in one cassette. E - Received in fixative is one container labeled with the patient's name and designated rectal polyp biopsy. The specimen consists of multiple irregular fragments of light white soft tissue that in aggregate measure 0.8 x 0.3 x 0.1 cm. The specimen is totally submitted in one cassette. / SJ:rg 11/17/18 TC:5 CPT: 44445 x5
[2018-11-17 07:47] VITALS: BP 92/68; PULSE 82; RESP 18; TEMP 36.8; O2SAT 98; BMI 26.4
[2018-11-17] MEDS: Lactated Ringers 1,000 ML 100 ML IV (08:02)
--- NOTE | 2018-11-17 08:30 | IMM_PTH ---
PATIENT: ABELARDO ROBERTS LOC: EN U#:[id number] AGE/SX: 68/M ROOM: RE11/17/[address]: Dr. Abelardo Kaye MD : 1950 BED: DIS: 11/17/2018 SPEC #: [id number] RECD: 11/30/18 10:53 STATUS: EZEQUIEL REQ #: [id number] MORENITA: 11/17/18 08:[address]: Abelardo Kaye DEPT: IMMUNOHISTOCHEMISTRY RECD BY: Kaycee Woods ENTERED: 11/30/18 10:54 SP TYPE: IMMUNO OTHR DR: Dr. Andrés Carrasco MD Tissues: B - Pyloric portion of stomach Procedures: H Pylori (initial) PHYSICIAN & [place] [id number] SPECIMEN INFORMATION: Tissue Source: B - Prepyloric mass biopsy Clinical Info: Anemia Specimen Number: [id number] CPT code: 52888 METHODOLOGY: Deparaffinized sections of prefer/formalin-fixed tissue or PAP/DQ stained slides are incubated with monoclonal/polyclonal antibodies/oligonucleotide probes. Localization is made via biotin free immunoperoxidase method. Appropriate controls are performed and reacted as expected. Results on target cell population are indicated in the following table: RESULTS: ANTIBODY / CLONE RESULT Block B H Pylori (polyclonal) negative These tests were developed and their performance characteristics determined by [facility]. They may not have been cleared or approved by the [place].S. Food and Drug Administration. The FDA has determined that such clearance or approval is not necessary. INTERPRETATION: B. Prepyloric mass biopsy: Negative for Helicobacter pylori organisms. SJ:dread 11/30/18
[2018-11-17 09:45] VITALS: BP 104/57; BP 92/68; PULSE 74; RESP 16; TEMP 36.2; O2SAT 95
[2018-11-17 09:50] VITALS: BP 92/68; BP 95/46; PULSE 79; RESP 18; O2SAT 95
--- NOTE | 2018-11-17 09:52 | OP.ENDO_ITS ---
11/17/2018 Ezekiel Carrasco [address] [place] [address] Re : Upper GI endoscopy procedure for Fortunato Ivory Dear Dr. Carrasco This procedure was performed on Saturday, November 17, 2018. My impressions and recommendations are as follows: Impressions : - Small hiatal hernia. - LA Grade A reflux esophagitis. - Erythematous mucosa in the antrum. 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 Biopsied. - Erythematous duodenopathy. Biopsied. Recommendations : - Discharge patient to home. - Resume previous diet. - Continue present medications. - Use Prilosec (omeprazole) 40 mg PO daily. You will need followup regarding the submucosal mass in the lower stomach. Further information pending biopsies. My findings are described in the full procedure note, which is enclosed. If I can be of further assistance, please feel free to contact me at Doctor phone number(s): Work: . Sincerely, Fortunato Kaye MD 11/17/2018 9:52:35 AM This report has been signed electronically.
[2018-11-17 09:55] VITALS: BP 92/68; BP 95/74; PULSE 81; RESP 18; O2SAT 95
--- NOTE | 2018-11-17 09:56 | OP.ENDO_ITS ---
11/17/2018 Ezekiel Carrasco [address] [place] [address] Re : Colonoscopy procedure for Fortunato Ivory Dear Dr. Carrasco This procedure was performed on Saturday, November 17, 2018. My impressions and recommendations are as follows: Impressions : - Hemorrhoids found on perianal exam. - Diverticulosis in the sigmoid colon and in the descending colon. - One 4 mm polyp in the distal sigmoid colon, removed with a cold biopsy forceps. Resected and retrieved. - One 4 mm polyp in the rectum, removed with a cold biopsy forceps. Resected and retrieved. Recommendations : - Repeat colonoscopy in 5 years for surveillance based on pathology results. - Return to my office in 1 week. - Continue present medications. My findings are described in the full procedure note, which is enclosed. If I can be of further assistance, please feel free to contact me at Doctor phone number(s): Work: . Sincerely, Fortunato Kaye MD 11/17/2018 9:55:28 AM This report has been signed electronically.
[2018-11-17 10:00] VITALS: BP 102/52; BP 92/68; PULSE 79; RESP 18; O2SAT 93
[2018-11-17 10:05] VITALS: BP 104/53; BP 92/68; PULSE 80; RESP 18; TEMP 36.1; O2SAT 94
== END 2018-11-17 11:44 | disposition home or self-care (01) ==
LOC: EN 07:21 → AC 07:23
PROVIDERS: Family Provider Family Medicine; PCP Family Medicine; Referring Provider Family Medicine; Visit Provider Surgery
PROC: 0DJD8ZZ Inspection of Lower Intestinal Tract, Via Natural or Artificial Opening Endoscopic (ICD-10-PCS; CPT 45378; principal; 2018-11-17 08:25)
DX: K21.0 Gastro-esophageal reflux disease with esophagitis (principal); K29.70 Gastritis, unspecified, without bleeding; K31.89 Other diseases of stomach and duodenum; K27.9 Peptic ulcer, site unspecified, unspecified as acute or chronic, without hemorrhage or perforation; K44.9 Diaphragmatic hernia without obstruction or gangrene; D12.5 Benign neoplasm of sigmoid colon; K64.9 Unspecified hemorrhoids; K57.30 Diverticulosis of large intestine without perforation or abscess without bleeding; K62.1 Rectal polyp; D50.9 Iron deficiency anemia, unspecified; K40.20 Bilateral inguinal hernia, without obstruction or gangrene, not specified as recurrent; I71.4 Abdominal aortic aneurysm, without rupture; I35.2 Nonrheumatic aortic (valve) stenosis with insufficiency; I10 Essential (primary) hypertension; M19.90 Unspecified osteoarthritis, unspecified site; R09.89 Other specified symptoms and signs involving the circulatory and respiratory systems; R01.1 Cardiac murmur, unspecified; R22.2 Localized swelling, mass and lump, trunk; F17.200 Nicotine dependence, unspecified, uncomplicated; Z79.899 Other long term (current) drug therapy
CPT/HCPCS: 43239; 45380; 88305; 88342; J7120; J2405

== ENCOUNTER → 2018-11-23 09:48 | Outpatient (CLI) | payer MEDICARE, SELFPAY ==
[2018-11-22 13:40] VITALS: BMI 27.1
--- NOTE | 2018-11-22 15:00 | MASS_PTH ---
PATIENT: ABELARDO ROBERTS LOC: [facility] U#:[id number] AGE/SX: 74/M ROOM: RE11/23/[address]: Dr. Abelardo Kaye MD : 1950 BED: DIS: SPEC #: [id number] RECD: 11/23/18 09:28 STATUS: EZEQUIEL ESTELLA #: [id number] MORENITA: 11/22/18 15:[address]: Abelardo Kaye DEPT: SURGICAL PATHOLOGY RECD BY: Daniel Blackburn ENTERED: 11/23/18 10:46 SP TYPE: Mass OTHR DR: Dr. Andrés Carrasco MD Tissues: Back, NOS Procedures: Surgery Specimen Level III HEADER OPERATION: Excision back mass PRE-OP DIAGNOSIS: Mass of back TISSUE SUBMITTED: Back tissue MICROSCOPIC DIAGNOSIS Back mass, excision: Epidermal inclusion cyst. SJ:dread 11/24/18 MICROSCOPIC DESCRIPTION Slides are reviewed. GROSS DESCRIPTION Received in fixative is one container labeled with the patient's name and designated back mass. The specimen consists of a nodular piece of cystic mass measuring 5 x 5 x 3.5 cm. The overlying skin ellipse measures 6 x 1.2 cm. A focal area of cystic mass appears to be ruptured. The cystic mass is filled with white-white cheesy material. Sandblaster Stone sections are submitted in two cassettes. / SJ:dread 11/23/18 TC:5 CPT: 27955
== END ==
PROVIDERS: Family Provider Family Medicine; PCP Family Medicine; Referring Provider Surgery; Visit Provider Surgery
DX: L72.0 Epidermal cyst (principal)
CPT/HCPCS: 88304; 88305

== ENCOUNTER 2018-11-27 07:07 | Day surgery (SDC) | payer MEDICARE, SELFPAY ==
[2018-11-22 10:29] VITALS: BMI 27.1
[2018-11-22 13:29] LABS: Absolute Neutrophil Count 2.7 X10^3/uL (2.0-7.7); Basophil# 0.05 X10^3/uL; Eosinophil# 0.14 X10^3/uL; Eosinophils% 2.8 % (0-5); Hematocrit 37.9 % (40-54); Lymphocyte % 32.1 % (19-41); Mean Corpuscular Volume 82.6 fL (80-94); Monocyte# 0.48 X10^3/uL; Monocyte% 9.6 % (0-10); NRBC Flagged by Analyzer 0 % (0-5); Neutrophil # 2.71 X10^3/uL (2.7-7.7); Neutrophil % 54.3 % (47-70); Platelet Count 194 K/mm3 (150-450); RBC Distribution Width SD 60.1 fl (35.1-43.9); Red Blood Count 4.59 M/mm3 (4.6-6.2)
[2018-11-22 13:39] LABS: Prothrombin Time (Protime)PT. 12.8 SECONDS (11.7-14.9)
[2018-11-22 13:40] VITALS: BMI 27.1
[2018-11-22 13:40] LABS: Partial Thromboplast Time 30.3 Seconds (24.1-36.2)
[2018-11-22 14:00] LABS: Anion Gap 8 (5-15); BUN 14 mg/dL (7-18); BUN/Creat Ratio 13.9 RATIO (10-20); Calcium,Total 8.5 mg/dL (8.5-10.1); Chloride 105 mmol/L (98-107); Creatinine, Serum 1.01 mg/dL (0.70-1.30); EST Glomerular Filtration Rate 78 mL/min (>60); Est Glom Filt Rate - Afr Amer 94 mL/min (>60); Glucose 90 mg/dL (74-106); Potassium 3.9 mmol/L (3.5-5.1); Sodium Level 141 mmol/L (136-145)
[2018-11-26 12:48] VITALS: BMI 26.1
--- NOTE | 2018-11-27 10:01 | CL.D_ITS ---
Patient Name: ABELARDO ROBERTS Study Date: 11/27/2018 Performing: Opal Randle MD Ht: 66.14 inches 168 cm : 1950 Wt: 167.55 lbs 76 kg Age: 68 Gender: male BSA: 1.86 PROCEDURE(S) PERFORMED DK02-[facility] CLINICAL PROFILE AND INDICATIONS Indications: Valvular Disease Heart Failure: None Stress/Imaging Stress/Image Study Performed: No CAD Presentations: Other: shortness of breath CONCLUSIONS Single vessel CAD. Known severe . RECOMMENDATIONS AVR + RCA revascularization DESCRIPTION OF PROCEDURE The patient arrived to the procedure lab. The risks and benefits of the procedure as well as a full d escription of our services here and current unavailability of surgical backup were fully explained to the patient and/or their significant other prior to the catheterization. The Timeout was completed, verifying the correct patient and procedure. The patient's procedural site was prepped and draped in the usual fashion. Local anesthetic was given subcutaneously to right radial region with Lidocaine 2% . Using a modified Seldinger technique, arterial access was obtained via the right radial artery, a 6 Fr sheath was inserted. Left Coronary Artery selective angiography was performed in multiple views u sing a 5 Fr. JL3.5 catheter. Right Coronary Artery selective angiography was then performed in multip le views using a 5 Fr. JR 4 catheter.The arterial sheath was pulled and a TR Band was applied for hem ostasis 9cc air CORONARY ANGIOGRAPHY DOMINANCE: Right Dominant LEFT HEART ASSESSMENT Left Ventricular Ejection Fraction: Not assessed LEFT MAIN: Mild luminal irregularities LEFT ANTERIOR DESCENDING ARTERY: Mild luminal irregularities CIRCUMFLEX ARTERY: Mild luminal irregularities RIGHT CORONARY ARTERY: MID RCA: 80 % Stenosis COMPLICATIONS No Complications PROCEDURE MEDICATIONS Fentanyl 50 mcg IV Versed 1 mg IV Oxygen: 2 L/min via nasal cannula Heparin given IA 11/27/2018 09:00:21 Verapamil 2.5mg, Ntg 100mcgs, 3000 units of Heparin given IA 11/27/2018 09:00:21 SUMMARY OF HEMODYNAMIC DATA Time AIR REST ECG 07:22:44 AO 107/68 (84) SA 09:02:19 Signed By Opal Randle MD On 11/27/2018 10:00:09 AM Opal Randle MD
== END 2018-11-27 10:35 | disposition home or self-care (01) ==
LOC: CLSP 07:08
PROVIDERS: Family Provider Family Medicine; PCP Family Medicine; Referring Provider Specialist; Visit Provider Specialist
DX: I25.10 Atherosclerotic heart disease of native coronary artery without angina pectoris (principal); I35.0 Nonrheumatic aortic (valve) stenosis; I71.4 Abdominal aortic aneurysm, without rupture; I10 Essential (primary) hypertension; R06.02 Shortness of breath; F17.200 Nicotine dependence, unspecified, uncomplicated; Z79.82 Long term (current) use of aspirin; Z79.899 Other long term (current) drug therapy
CPT/HCPCS: 36415; 80048; 85025; 85610; 85730; 93454; 99152; J7040; C1769; C1894; Q9967

== ENCOUNTER → 2020-06-26 08:09 | Outpatient (CLI) | payer MEDICARE, SELFPAY ==
[2020-03-19 09:42] VITALS: BMI 31.6
[2020-06-26 10:54] LABS: AST(SGOT) 14 U/L (15-37); Alanine Aminotransfer ALT/SGPT 21 U/L (16-61); Albumin, Serum 3.8 g/dL (3.2-5.0); Alkaline Phosphatase 80 U/L (45-117); Anion Gap 6 (5-15); BUN 12 mg/dL (7-18); BUN/Creat Ratio 10.3 RATIO (10-20); Calcium,Total 9.1 mg/dL (8.5-10.1); Chloride 101 mmol/L (98-107); Cholesterol 165 mg/dL (200); Creatinine, Serum 1.16 mg/dL (0.70-1.30); EST Glomerular Filtration Rate 66 mL/min (>60); Est Glom Filt Rate - Afr Amer 80 mL/min (>60); Globulin 3.9 g/dL (2.2-4.2); Glucose 109 mg/dL (74-106); High Density Lipoprotein 47 mg/dL; Potassium 4.7 mmol/L (3.5-5.1); Protein, Total 7.7 g/dL (6.4-8.2); Sodium Level 136 mmol/L (136-145); Thyroid Stim Hormone (TSH) 2.41 uIU/mL (0.358-3.74); Triglycerides 167 mg/dL; Very Low Density Lipoprotein 33 mg/dL (5-40)
== END ==
PROVIDERS: PCP Family Medicine; Referring Provider Family Medicine; Visit Provider Family Medicine
DX: E11.9 Type 2 diabetes mellitus without complications (principal); Z12.5 Encounter for screening for malignant neoplasm of prostate
CPT/HCPCS: 36415; 80053; 80061; 84153; 84443; G0103

== ENCOUNTER → 2020-09-29 14:35 | Outpatient (CLI) | payer MEDICARE, SELFPAY ==
[2020-09-18 08:58] VITALS: BMI 31.6
--- NOTE | 2020-09-29 14:39 | ECHOD_ITS ---
Version 2 Reason For Study: AV Replacement Procedure This was a 2D Doppler, Color Flow transthoracic echocardiogram. The study was technically difficult. Exam performed in department. Left Ventricle Normal LV size. Left ventricular systolic function is normal. The estimated ejection fraction is 55 %. No regional wall motion abnormalities noted. Right Ventricle Normal RV size. Normal systolic function. Atria Normal left atrium. Normal right atrium. Tricuspid Valve Normal tricuspid valve. Mild to moderate (1-2+) tricuspid valve insufficiency. Pulmonary artery systolic pressure is 42 mmHg. Aortic Valve Peak aortic valve gradient 28 mmHg. Mean aortic valve gradient 13 mmHg. Mild aortic stenosis. Bioprosthetic aortic valve. Pulmonic Valve Normal pulmonic valve. Great Vessels Normal aortic root. The pulmonary artery is normal size. Inferior vena cava collapse with respiration. Pericardium/Pleural No pericardial effusion. MMode/2D Measurements & Calculations LVIDd: 5.2 cm IVSd: 0.86 cm LVOT diam: 2.0 cm LVIDs: 3.4 cm LVPWd: 0.85 cm LVOT area: 3.1 cm2 FS: 35.3 % LA dimension: 3.8 cm LAV(MOD-bp): 45.1 ml LA A4 area: 15.9 cm2 LAV(MOD-bp) Indexed: 23.2 ml/m2 LAV(MOD-sp2): 45.7 ml LAV(MOD-sp4): 42.7 ml RA A4 area: 14.5 cm2 Time Measurements MV dec time: 0.19 sec Doppler Measurements & Calculations MV E max pasha: 96.5 cm/sec Lat Peak E' Pasha: 7.7 cm/sec Med Peak E' Pasha: 7.0 cm/sec MV A max pasha: 94.9 cm/sec E/E' lat: 12.5 E/E' med: 13.8 MV E/A: 1.0 MV V2 max: 107.9 cm/sec MV P1/2t max pasha: 107.9 cm/sec Ao V2 max: 267.1 cm/sec MV max P.7 mmHg MV P1/2t: 110.8 msec Ao max P.5 mmHg MV V2 mean: 54.7 cm/sec MV dec slope: 285.1 cm/sec2 Ao V2 mean: 167.5 cm/sec MV mean P.5 mmHg MVA(P1/2t): 2.0 cm2 Ao mean P.2 mmHg MV V2 VTI: 34.5 cm Ao V2 VTI: 54.4 cm MVA(VTI): 2.4 cm2 JAVID(I,D): 1.5 cm2 JAVID(V,D): 1.4 cm2 LV V1 max: 121.9 cm/sec SV(LVOT): 81.2 ml PA V2 max: 88.6 cm/sec LV V1 max P.0 mmHg LV V1 mean P.8 mmHg LV V1 mean: 77.0 cm/sec LV V1 VTI: 26.5 cm TR max pasha: 345.8 cm/sec TR max P.8 mmHg ECHO/Echo Complete Interpretation Summary Normal LV size. Left ventricular systolic function is normal. The estimated ejection fraction is 55 %. Mild to moderate (1-2+) tricuspid valve insufficiency. Pulmonary artery systolic pressure is 42 mmHg. Bioprosthetic aortic valve. Mild aortic stenosis. Ordering Physician: Tc Subramanian Referring Physician: Andrés Carrasco Performed By: Con Mccarty RCS
--- NOTE | 2020-09-29 15:28 | CT_ITS ---
STUDY: CTA OF THE ABDOMINAL AORTA REASON FOR EXAM: Male, 70 years old. Evaluation of abdominal aortic aneurysm. RADIATION DOSAGE (If Supplied By Facility): CTDIvol = ( 18.29 ) mGy, DLP = ( 866.17 ) mGycm TECHNIQUE: Axial CT angiography multi-detector data acquisition was obtained from the diaphragm to the ischial tuberosities following intravenous administration of IV 100mL Isovue-370. Axial images and MIP images were reconstructed from the axial data set. Post-processing of the angiographic images was performed, with multiplanar reformation and 3D reconstruction. Individualized dose optimization techniques were used for this CT. TECHNICAL QUALITY: Good COMPARISON: CT of the abdomen and pelvis, 07/09/2018. Descriptors of Narrowing: None (0%) Mild (< 50%) Moderate (50-70%) Severe (70-90%) Subtotal/Total Occlusion (90-100%) Non-Evaluable (technically non-diagnostic FINDINGS: Abdominal aorta: The proximal abdominal aorta is of normal diameter. There is scattered atherosclerotic changes. Beginning approximately 4 cm below the left renal artery is a fusiform abdominal aortic aneurysm which extends to the bifurcation. Maximum diameter is 5 x 4.6 cm. There is a patent internal lumen 2.3 x 1.4 cm. There is no evidence of rupture or leakage. Celiac and superior mesenteric arteries: There are separate origins of the splenic artery and short gastric artery. The SMA is unremarkable. The hepatic artery arises from the SMA. Inferior mesenteric artery: No demonstrated narrowing. Right renal artery(arteries): No demonstrated narrowing. Left renal artery(arteries): Minimal calcification without narrowing. Right common iliac artery: Atherosclerotic changes with mild dilatation. The common hepatic artery measures 1.9 x 1.5 cm. There is minimal thrombus anteriorly. This narrows the bifurcation. Right external iliac artery: Atherosclerotic changes with mild narrowing. Right internal iliac artery: Atherosclerotic changes with mild narrowing. Left common iliac artery: Atherosclerotic changes with mild fusiform dilatation. Maximum diameter is 1.5 x 1.5 cm. Left external iliac artery: Atherosclerotic changes with mild stenosis. Left internal iliac artery: Atherosclerotic changes with mild stenosis. The lung bases are clear. Visualized portion of the heart appears normal. Normal liver. Normal gallbladder and biliary ductal system. There are multiple calcified granulomata within the spleen. Normal pancreas. Normal adrenal glands. Normal kidneys. Normal IVC and retroperitoneum. Question small hiatal hernia. The stomach is otherwise unremarkable. Normal small bowel. Normal colon. Normal appendix. Normal urinary bladder. Processes is normal in size coarse central calcifications. No pelvic lymphadenopathy. No free air or free fluid is seen within the abdominal cavity. Bilateral inguinal hernias containing omental fat and nonobstructed small bowel loops. The right is greater than the left. Abdominal wall is otherwise unremarkable. There are diffuse degenerative changes of the lumbar spine. CT/CT ANGIO ABD&PEL W/O&W/DYE IMPRESSION: 1. Fusiform infrarenal abdominal aortic aneurysm this appears mildly enlarged when compared to prior study. There is decrease in size of the patent internal lumen. 2. Enlarging bilateral inguinal hernia now containing small bowel loops. 3. No other major interval change when compared to the prior study. Electronically Signed: Alphonso Benitez DO at 16:33 EDT Tel [phone], Service support ,
[2020-09-29 15:42] LABS: CREATININE FINGERSTICK 1.3 mg/dL (0.70-1.30)
== END ==
PROVIDERS: PCP Family Medicine; Referring Provider Nurse Practitioner Family; Visit Provider Nurse Practitioner Family
DX: I71.4 Abdominal aortic aneurysm, without rupture (principal); R06.02 Shortness of breath; Z95.2 Presence of prosthetic heart valve
CPT/HCPCS: 74174; 93306; Q9967

== ENCOUNTER → 2020-12-05 08:36 | Outpatient (CLI) | payer MEDICARE, SELFPAY ==
--- NOTE | 2020-12-05 08:39 | CDU_ITS ---
Reason For Study: Carotid stenosis Rt. Velocities/BP Lt. Velocities/BP Prox CCA 54/15 cm/sec. Prox CCA 86/26 cm/sec. Mid CCA 49/15 cm/sec. Mid CCA 90/22 cm/sec. Dist CCA 47/13 cm/sec. Dist CCA 50/9 cm/sec. Prox ICA 52/18 cm/sec. Prox ICA 71/21 cm/sec. Mid ICA 80/33 cm/sec. Mid ICA 62/27 cm/sec. Dist ICA 86/38 cm/sec. Dist ICA 86/39 cm/sec. Rt. ICA/CCA = 1.8. Lt. ICA/CCA = 1.0. Prox ECA 108/14 cm/sec. Prox ECA 79/10 cm/sec. Rt. Vert. 62/18 cm/sec. Lt. Vert. 45/15 cm/sec. Right Extracranial There is heterogeneous, irregular atherosclerotic plaque noted in the right common carotid artery. There is heterogeneous, irregular atherosclerotic plaque noted in the right internal carotid artery. There is heterogeneous, smooth atherosclerotic plaque noted in the right external carotid artery. Antegrade flow is noted in the right vertebral artery. Left Extracranial There is heterogeneous, irregular atherosclerotic plaque noted in the left common carotid artery. There is heterogeneous, irregular atherosclerotic plaque noted in the left internal carotid artery. There is heterogeneous, irregular atherosclerotic plaque noted in the left external carotid artery. Antegrade flow is noted in the left vertebral artery. Procedure Carotid Duplex [id number]. This is a Carotid Duplex examination using B-mode, color flow and specral Doppler. Exam performed in department. VL/Carotid Duplex Ultrasound Interpretation Summary Irregular calcific plaque of the proximal right internal carotid artery with le ss than 50% stenosis Less than 50% stenosis right external carotid artery Irregular calcific plaque at the proximal left internal carotid artery with les s than 50% stenosis Less than 50% stenosis left external carotid artery Patent antegrade vertebral arteries bilaterally No change from the previous examination of November 13, 2018 Ordering Physician: Fortunato Kaye Referring Physician: Andrés Carrasco Performed By: Lillie Subramanian, LEE, RVT
== END ==
PROVIDERS: PCP Family Medicine; Referring Provider Surgery; Visit Provider Surgery
DX: I65.23 Occlusion and stenosis of bilateral carotid arteries (principal)
CPT/HCPCS: 93880

== ENCOUNTER → 2021-08-20 | Outpatient (CLI) | payer MEDICARE, SELFPAY ==
--- NOTE | 2021-08-20 16:43 | CT_ITS ---
STUDY: LOW DOSE CT LUNG CANCER SCREENING REASON FOR EXAM: Male, 71 years old. 28 pack-year history. Cough for one year. History of open heart surgery and hypertension. RADIATION DOSAGE (If Supplied By Facility): CTDIvol = ( 2.39 ) mGy, DLP = ( 90.25 ) mGycm TECHNIQUE: No contrast was administered. Low dose technique was utilized (average mAS-38 and kVp 120). 1.25 mm axial source images with a slice interval of 1.25-mm were reconstructed in lung windows. 2.5 mm axial source images with a slice interval of 2.5-mm were reconstructed in lung windows. 5.0 mm axial source images with a slice interval of 5.0-mm were reconstructed in soft tissue windows. COMPARISON: None. NODULES: There is a single calcified granuloma in the left upper lobe measuring 5 mm in greatest dimension. This is best seen on image 112 of series 2. Total lung nodules (excluding granulomas): 0 Emphysema: Mild emphysematous changes. Endobronchial lesion: None Aorta: Atherosclerotic changes of the thoracic aorta without aneurysm. CORONARY ARTERIES: Coronary artery calcification are present. Heart: Normal size. There is evidence of median sternotomy and aortic valve replacement. Pulmonary artery: Normal Mediastinal nodes: Mediastinal lymphadenopathy. There are calcified lymph nodes in the subcarinal space and right hilum. Other chest and abdominal findings: Degenerative changes of the thoracic spine. CT/Low Dose CT Lung Screening IMPRESSION: Lung-RADS category 1 - Continue annual screening with LDCT in 12 months. IMPORTANT NOTES FOR USE: ACR Lung-RADS Version 1.1 Assessment Categories Release Date: 2018 Category: Coded 0-4 bases on nodule(s) with highest degree of suspicion. Negative screen is defined as categories 1 and 2; a positive screen is defined as categories 3 and 4. Category 3 and 4A nodules that are unchanged on interval CT should be coded as category 2, and individuals returned to screening in 12 months. Category 4X: Category 3 or 4 nodules with additional imaging findings that increase the suspicion of lung cancer, such as spiculation, GGN that doubles in size in 1 year, enlarged lymph notes, etc. Category Modifiers: S (significant finding unrelated to lung cancer) Electronically Signed: Alphonso Benitez DO at 22:56 EDT Reading Location ID and State: [facility] / [place] Tel [phone], Service support ,
== END | disposition home or self-care (01) ==
PROVIDERS: PCP Family Medicine; Referring Provider Family Medicine; Visit Provider Family Medicine
DX: Z12.2 Encounter for screening for malignant neoplasm of respiratory organs (principal); F17.210 Nicotine dependence, cigarettes, uncomplicated
CPT/HCPCS: 71271

== ENCOUNTER → 2021-09-23 | Outpatient (CLI) | payer MEDICARE, SELFPAY ==
[2021-09-23 12:39] LABS: Hematocrit 46.3 % (40-54); Hemoglobin 15.3 g/dL (13.0-16.5); Mean Corpuscular Hgb 30.8 pg (27.0-32.0); Mean Corpuscular Volume 93.2 fL (80-94); Mean Platelet Vol. 8.8 fl (6.2-12.0); Platelet Count 106 K/mm3 (150-450); RBC Distribution Width CV 12.9 % (11.6-14.6); RBC Distribution Width SD 44.2 fl (35.1-43.9); Red Blood Count 4.97 M/mm3 (4.6-6.2); White Blood Count 6.3 K/mm3 (4.4-11.0)
[2021-09-23 13:19] LABS: ALB/GLOB Ratio 0.9 RATIO (0.9-2.4); AST(SGOT) 26 U/L (15-37); Alanine Aminotransfer ALT/SGPT 29 U/L (16-61); Albumin, Serum 3.4 g/dL (3.2-5.0); Alkaline Phosphatase 71 U/L (45-117); Anion Gap 7 (5-15); BUN 17 mg/dL (7-18); Calcium,Total 8.4 mg/dL (8.5-10.1); Chloride 99 mmol/L (98-107); Creatinine, Serum 1.13 mg/dL (0.70-1.30); EST Glomerular Filtration Rate 68 mL/min (>60); Est Glom Filt Rate - Afr Amer 82 mL/min (>60); Globulin 3.8 g/dL (2.2-4.2); Glucose 172 mg/dL (74-106); PSA,Total - Annual Screen 0.43 ng/mL (0.00-4.00); Potassium 4.5 mmol/L (3.5-5.1); Protein, Total 7.2 g/dL (6.4-8.2); Sodium Level 133 mmol/L (136-145)
== END | disposition home or self-care (01) ==
LOC: MFPLAB 10:16
PROVIDERS: PCP Family Medicine; Referring Provider Family Medicine; Visit Provider Family Medicine
DX: I71.4 Abdominal aortic aneurysm, without rupture (principal); E11.69 Type 2 diabetes mellitus with other specified complication; Z12.5 Encounter for screening for malignant neoplasm of prostate
CPT/HCPCS: 36415; 80053; 84153; 85027; G0103

== ENCOUNTER → 2021-12-22 | Outpatient (CLI) | payer MEDICARE, SELFPAY ==
[2021-12-22 12:00] LABS: Absolute Lymphocyte Count 3.71 X10^3/uL (0.83-4.51); Absolute Neutrophil Count 2.2 X10^3/uL (2.0-7.7); Basophil# 0.02 X10^3/uL; Basophil% 0.3 % (0-1); Eosinophil# 0.01 X10^3/uL; Eosinophils% 0.2 % (0-5); Hematocrit 38.3 % (40-54); Hemoglobin 12.3 g/dL (13.0-16.5); Lymphocyte # 3.71 X10^3/ul (0.83-4.51); Lymphocyte % 58.1 % (19-41); Mean Corp Hgb Conc 32.1 g/dL (32-36); Mean Corpuscular Hgb 28.9 pg (27.0-32.0); Mean Corpuscular Volume 90.1 fL (80-94); Mean Platelet Vol. 9.2 fl (6.2-12.0); Monocyte# 0.42 X10^3/uL; Monocyte% 6.6 % (0-10); NRBC Flagged by Analyzer 0 % (0-5); Neutrophil # 2.22 X10^3/uL (2.7-7.7); Neutrophil % 34.6 % (47-70); Platelet Count 137 K/mm3 (150-450); RBC Distribution Width CV 14.2 % (11.6-14.6); Red Blood Count 4.25 M/mm3 (4.6-6.2); White Blood Count 6.4 K/mm3 (4.4-11.0)
== END | disposition home or self-care (01) ==
LOC: MFPLAB 09:17
PROVIDERS: PCP Family Medicine; Referring Provider Family Medicine; Visit Provider Family Medicine
DX: D69.6 Thrombocytopenia, unspecified (principal)
CPT/HCPCS: 36415; 85025

== ENCOUNTER 2021-12-28 09:43 | Emergency (ER) | payer MEDICARE, SELFPAY ==
[2021-12-28 09:44] VITALS: BP 144/89; PULSE 70; RESP 14; TEMP 35.6; O2SAT 100; BMI 25.9
--- NOTE | 2021-12-28 10:21 | EDS_ITS ---
HPI History of Present Illness Chief Complaint: Abd Pain Informant: patient Narrative Narrative: This is a 71-year-old male presenting to the emergency department with a chief complaint of abdominal pain. Patient states that around 2200 hrs. last night he developed a pain just below his umbilicus. He states it radiates slightly to the back but nothing to the legs. He notes shortly thereafter he developed some dry heaves thinking that that may help but it did not. Is been a constant pain is not waxing and waning. He denies any bowel or bladder symptoms. No URI symptoms chest pain or shortness of breath. He does have a history of a aortic valve replacement as well as coronary artery bypass surgery in 2019. He also notes a history of hypertension hyperlipidemia and states he has an aneurysm. He does not know if that is in his chest abdomen or his head. According to the medical record that I have immediately available to me it is a AAA. He denies any syncope or near syncope. The patient is a very poor historian and is difficult to get any specific information from him. [facility] Medical History Abdominal aortic aneurysm (AAA) Anemia Arthritis Atherosclerotic heart disease of [place] coronary artery without angina pectoris Bilateral inguinal hernia Carotid stenosis, bilateral Cough Essential hypertension Hyperlipidemia Intention tremor Left carotid bruit Nonrheumatic aortic (valve) stenosis PUD (peptic ulcer disease) Secondary pulmonary arterial hypertension Subcutaneous mass of back Tobacco dependence Home Medications aspirin 81 mg tablet,delayed release 81 mg PO DAILY #30 tabs 12/06/18 [Rx Last Taken Unknown] albuterol sulfate 90 mcg/actuation aerosol inhaler 2 puff inhalation Q4H PRN 03/14/19 [History Last Taken Unknown] rosuvastatin 5 mg tablet (Crestor) 5 mg PO DAILY #30 tabs 03/19/20 [Rx Last Taken Unknown] lisinopril 10 mg tablet 10 mg PO DAILY #30 tabs 09/18/20 [Rx Last Taken Unknown] metoprolol tartrate 25 mg tablet 12.5 mg PO BID #90 tabs 10/16/21 [Rx Last Taken Unknown] Allergy/AdvReac Type Severity Reaction Status Date / Time No Known Allergies Allergy Verified 12/28/21 09:44 Family History Sister Asthma Mother Arthritis Diabetes Brother Cancer Unsure what kind- just a lump on his neck Surgical History 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) History of aortic valve replacement (02/12/19) History of left heart catheterization (11/27/18) No history of previous surgery Social History Smoking Status: Current every day smoker tobacco type: cigarettes quit status: has quit before alcohol intake: never substance use type: does not use caffeine: Yes Type: coffee Number of servings: 3 what type of physical activity do you participate in: other frequency: 3-4 times per week seatbelt use: always ROS ROS ED Constitutional Constitutional ED: Denies chills or weight loss Eyes Eyes: Denies change in vision or diplopia ENT ENT ED: Denies ear pain, rhinorrhea or sore throat Cardiovascular Cardiovascular: Denies chest pain, orthopnea, palpitations or racing heartbeat Respiratory/Chest Respiratory/Chest: Denies cough, dyspnea or orthopnea Gastrointestinal Gastrointestinal: Reports abdominal pain and nausea; Denies diarrhea or vomiting Genitourinary Genitourinary ED: Denies dysuria, hematuria or urinary frequency Musculoskeletal Musculoskeletal: Denies arthralgias or myalgias Integumentary Denies abscess or rash Neurologic Neurologic: Denies headache(s) or weakness Psychiatric Psychiatric: Denies anxiety, depression, suicidal ideation or suicidal thoughts Endocrine Endocrinology: Denies polydipsia, polyphagia or polyuria Allergic/Immunologic Allergic/Immunologic ED: Denies mouth swelling, tongue swelling or urticaria EXAM Physical Exam Const Vital Signs: 12/28/21 09:44 12/28/21 12:34 Temperature 96.1 F L Temperature Source Temporal Pulse Rate 70 85 Respiratory Rate 14 18 Blood Pressure 144/89 H 175/86 H Blood Pressure Mean 107 115 Pulse Ox 100 97 Oxygen Delivery Method Room Air Room Air Positive well nourished and well developed General Appearance ED: well developed HEENT Reports normocephalic, head/scalp atraumatic and moist mucous membranes Eyes PERRL and EOMs intact bilaterally Neck no lymphadenopathy, supple and no JVD Resp normal respiratory effort and clear to auscultation bilaterally Cardio regular rate, regular rhythm and no murmurs GI non-tender Palpation: soft and tender periumbilical; Negative for guarding or rebound tenderness present Back/Spine no CVA tenderness and normal ROM Extremity normal to inspection General Extremety ED: Negative for edema General Extremity: Negative for edema Neuro oriented x3 and CN's II-XII intact bilaterally Sensorium / Orientation: alert Motor Exam: strength 5/5 throughout Psych mental status grossly normal Mood & Affect: Negative for depressed or tearful Skin no rashes or lesions noted and no wounds MDM MDM MDM Narrative Medical decision making narrative: Basic blood work shows a hemoglobin 11.1. Creatinine elevated at 2.19 which is new. Urinalysis 25-50 red cells of unknown determine significance. CT of the abdomen pelvis demonstrates a 5.2 cm infrarenal aneurysm with adjacent free fluid suggestive of his sentinel leak. The patient has been seen at [facility]. I contacted [facility] transfer line for an auto launch. I spoke with Dr. Raymond who is excepted the patient and there is an auto launch. Images have been transferred electronically to the [facility]. We are currently awaiting their arrival Lab Data Attestation: I reviewed the patient's lab results. Labs: Laboratory Results - last 24 hr 12/28/21 12/28/21 12/28/21 10:35 10:35 11:33 WBC 5.7 RBC 3.95 L Hgb 11.1 L Hct 34.1 L MCV 86.3 MCH 28.1 MCHC 32.6 RDW Std Deviation 43.4 RDW Coeff of Manjit 13.7 Plt Count 109 L MPV 9.8 Immature Gran % (Auto) 0.300 Neut % (Auto) 59.2 Lymph % (Auto) 35.1 [place] % (Auto) 5.2 Eos % (Auto) 0.0 Baso % (Auto) 0.2 Absolute Neuts (auto) 3.4 Absolute Lymphs (auto) 2.01 Nucleated RBC % 0 Sodium 134 L Potassium 4.4 Chloride 101 Carbon Dioxide 25.0 Anion Gap 8 BUN 28 H Creatinine 2.19 H Estim Creat Clear Calc 27.92 Est GFR (MDRD) Af Amer 38 L Est GFR (MDRD) Non-Af 32 L BUN/Creatinine Ratio 12.8 Glucose 166 H Calcium 8.8 Total Bilirubin 0.40 AST 21 ALT 18 Alkaline Phosphatase 73 Total Protein 7.3 Albumin 2.8 L Globulin 4.5 H Albumin/Globulin Ratio 0.6 L Urine Color Red Urine Clarity Cloudy Urine pH 6.5 Ur Specific [place] 1.015 Urine Protein 100 H Urine Glucose (UA) 50 H Urine Ketones Negative Urine Occult Blood 250 H Urine Nitrite Negative Urine Bilirubin Negative Urine Urobilinogen Normal Ur Leukocyte Esterase 25 H Urine RBC 25-50 SEEN Urine WBC 0-5 SEEN Ur Squamous Epith Cells 0 SEEN Urine Bacteria 0 SEEN Urine Mucus 0 SEEN Radiography Diagnostic Testing: Clinical Impression(s) from Imaging Studies Abdomen/Pelvis CT 12/28/21 11:28 IMPRESSION: 1. 5 cm infrarenal abdominal aortic aneurysm with adjacent retroperitoneal fluid suggesting aneurysm leakage. 2. Splenomegaly. 3. Bilateral bowel containing inguinal hernias, unchanged from prior study. Electronically Signed: Bonifacio Duran MD at 12:37 EST , Critical Care Time Critical Care Time: Yes Critical care time (excluding procedures): 30-74 minutes (35 min), Including time spent:, Discussing w/Patient &/or Family/Groutman, Discussing w/Consult ants, Arranging Admission or Transfer and Performing Direct Patient Care at Bedside Discharge Plan Triage Chief Complaint: Abd Pain ED Provider: Raymond Asencio Dx/Rx/DC Orders Clinical Impression: Ruptured abdominal aortic aneurysm (AAA), Abdominal pain Prescriptions: No Action aspirin 81 mg tablet,delayed release (DR/EC) 81 mg PO DAILY Qty: 30 11RF albuterol sulfate 90 mcg/actuation HFA aerosol inhaler 2 puff INHALATION Q4H PRN rosuvastatin [Crestor] 5 mg tablet 5 mg PO DAILY Qty: 30 11RF lisinopril 10 mg tablet 10 mg PO DAILY Qty: 30 11RF metoprolol tartrate 25 mg tablet 12.5 mg PO BID Qty: 90 3RF Primary Care Provider: Ezekiel Carrasco Referrals: Ezekiel Carrasco MD [Primary Care Provider] - Disposition Disposition: Acute Care Hospital Discharge Location: [facility]
--- NOTE | 2021-12-28 11:28 | CT_ITS ---
We are attempting to reach an attending provider to discuss findings. An addendum with communication details will be sent when the communication is complete. EXAM: CT ABDOMEN AND PELVIS WITH INTRAVENOUS CONTRAST CLINICAL INDICATION: abdominal pain known AAA TECHNIQUE: Helically acquired images were obtained of the abdomen and pelvis with intravenous contrast. This CT exam was performed using one or more of the following dose reduction techniques: automated exposure control, adjustment of the mA and/or kV according to patient size, and/or use of iterative reconstruction technique. This report was created using [employer] report [employer] technology. CONTRAST: IV 75mL Isovue-370 COMPARISON: CT Abdomen Pelvis dated 09/29/2020 FINDINGS: LOWER THORAX: Normal. Lung bases are clear. No cardiomegaly. No pericardial effusion. ABDOMEN: LIVER: Hepatic granulomata are also noted. GALLBLADDER AND BILE DUCTS: Normal. No calcified gallstones. No gallbladder distention or wall edema. No intra- or extrahepatic biliary ductal dilation. PANCREAS: Normal. No focal cystic or solid mass. SPLEEN: Splenic granulomata again seen. The spleen has increased in size now measuring nearly 14 cm in length. ADRENALS: Normal. No nodules. KIDNEYS AND URETERS: Normal. Normal renal size and position. No hydronephrosis. STOMACH AND BOWEL: Diverticulosis of the colon noted without evidence of acute diverticulitis. Right inguinal hernia again noted containing multiple loops of small bowel. Left inguinal hernia again noted containing a portion of the sigmoid colon. PELVIS: APPENDIX: Appendix is visualized and normal in appearance. BLADDER: Normal. REPRODUCTIVE: Unremarkable as visualized. No mass. ABDOMEN and PELVIS: INTRAPERITONEAL SPACE: Normal. No ascites or other fluid collection. No free air. BONES/JOINTS: Normal. No suspicious lytic or blastic abnormality. SOFT TISSUES: See above. VASCULATURE: Previously noted 4.8 cm infrarenal abdominal aortic aneurysm now measures 5 cm in maximum diameter. There is a small amount of fluid within the retroperitoneum adjacent to the aortic aneurysm consistent with aneurysm leakage. Question of contrast extending into the thrombosed portion of the aortic aneurysm. No aortic lumen stenosis. LYMPH NODES: Normal. No enlarged lymph nodes. CT/Abdomen/Pelvis W IV Cont ONLY IMPRESSION: 1. 5 cm infrarenal abdominal aortic aneurysm with adjacent retroperitoneal fluid suggesting aneurysm leakage. 2. Splenomegaly. 3. Bilateral bowel containing inguinal hernias, unchanged from prior study. Electronically Signed: Bonifacio Duran MD at 12:37 EST ,
[2021-12-28] MEDS: Morphine 4 MG/ML Syringe IV (11:37)
[2021-12-28] MEDS: Ondansetron 4 MG/2 ML Vial IV (11:38)
[2021-12-28 11:43] LABS: Bacteria 0 SEEN /hpf (None Seen); Mucous, Urine 0 SEEN /hpf (<or=2+); Squamous Epithelial Cells - UA 0 SEEN /hpf (0-5)
[2021-12-28 11:49] LABS: Absolute Lymphocyte Count 2.01 X10^3/uL (0.83-4.51); Absolute Neutrophil Count 3.4 X10^3/uL (2.0-7.7); Basophil# 0.01 X10^3/uL; Basophil% 0.2 % (0-1); Hematocrit 34.1 % (40-54); Hemoglobin 11.1 g/dL (13.0-16.5); Lymphocyte # 2.01 X10^3/ul (0.83-4.51); Lymphocyte % 35.1 % (19-41); Mean Corp Hgb Conc 32.6 g/dL (32-36); Mean Corpuscular Hgb 28.1 pg (27.0-32.0); Mean Corpuscular Volume 86.3 fL (80-94); Mean Platelet Vol. 9.8 fl (6.2-12.0); Monocyte% 5.2 % (0-10); NRBC Flagged by Analyzer 0 % (0-5); Neutrophil # 3.39 X10^3/uL (2.7-7.7); Neutrophil % 59.2 % (47-70); Platelet Count 109 K/mm3 (150-450); RBC Distribution Width CV 13.7 % (11.6-14.6); RBC Distribution Width SD 43.4 fl (35.1-43.9); Red Blood Count 3.95 M/mm3 (4.6-6.2); White Blood Count 5.7 K/mm3 (4.4-11.0)
[2021-12-28 11:52] LABS: Color, Urine Red (Yellow); Glucose, Dipstick 50 mg/dl (Normal); Ketone-Dipstick Negative (Negative); Leukocyte Esterase-Dipstick 25 /ul (Negative); Nitrite-Dipstick Negative (Negative); Occult Blood-Urine 250 /ul (Negative); Protein-Dipstick 100 mg/dl (Negative); Specific Gravity, Urine 1.015 (1.002-1.030); Urine Bilirubin Dipstick Negative (Negative); Urine Clarity Cloudy (Clear); Urine Urobilinogen Normal (Normal); Urine pH 6.5 (5.0 - 8.0)
[2021-12-28 12:02] LABS: ALB/GLOB Ratio 0.6 RATIO (0.9-2.4); AST(SGOT) 21 U/L (15-37); Alanine Aminotransfer ALT/SGPT 18 U/L (16-61); Albumin, Serum 2.8 g/dL (3.2-5.0); Alkaline Phosphatase 73 U/L (45-117); Anion Gap 8 (5-15); BUN 28 mg/dL (7-18); BUN/Creat Ratio 12.8 RATIO (10-20); Calcium,Total 8.8 mg/dL (8.5-10.1); Chloride 101 mmol/L (98-107); Creatinine, Serum 2.19 mg/dL (0.70-1.30); EST Glomerular Filtration Rate 32 mL/min (>60); Est Glom Filt Rate - Afr Amer 38 mL/min (>60); Estimated Creatinine Clearance 27.92 ml/min; Globulin 4.5 g/dL (2.2-4.2); Glucose 166 mg/dL (74-106); Potassium 4.4 mmol/L (3.5-5.1); Protein, Total 7.3 g/dL (6.4-8.2); Sodium Level 134 mmol/L (136-145)
[2021-12-28 12:05] LABS: Red Blood Cells-Urine 25-50 SEEN /hpf (0-5); White Blood Cells 0-5 SEEN /hpf (0-5)
[2021-12-28 12:34] VITALS: BP 175/86; PULSE 85; RESP 18; O2SAT 97
== END 2021-12-28 13:30 | disposition short-term general hospital (02) ==
PROVIDERS: Emergency Provider Emergency Medicine; PCP Family Medicine; Visit Provider Emergency Medicine
DX: I71.30 Abdominal aortic aneurysm, ruptured, unspecified (principal); I25.10 Atherosclerotic heart disease of native coronary artery without angina pectoris; R10.9 Unspecified abdominal pain; F17.210 Nicotine dependence, cigarettes, uncomplicated; Z95.1 Presence of aortocoronary bypass graft
CPT/HCPCS: 74177; 80053; 81001; 85025; 96374; 96375; 99284; Q9967; A4216; J2405

== ENCOUNTER → 2022-01-06 | Outpatient (CLI) | payer MEDICARE, SELFPAY ==
[2022-01-06 10:28] LABS: Absolute Lymphocyte Count 2.01 X10^3/uL (0.83-4.51); Absolute Neutrophil Count 4.1 X10^3/uL (2.0-7.7); Basophil# 0.01 X10^3/uL; Basophil% 0.2 % (0-1); Eosinophil# 0.01 X10^3/uL; Eosinophils% 0.2 % (0-5); Hematocrit 32.8 % (40-54); Hemoglobin 10.3 g/dL (13.0-16.5); Lymphocyte # 2.01 X10^3/ul (0.83-4.51); Lymphocyte % 30.4 % (19-41); Mean Corp Hgb Conc 31.4 g/dL (32-36); Mean Corpuscular Hgb 28.5 pg (27.0-32.0); Mean Corpuscular Volume 90.6 fL (80-94); Mean Platelet Vol. 9.1 fl (6.2-12.0); Monocyte# 0.51 X10^3/uL; Monocyte% 7.7 % (0-10); NRBC Flagged by Analyzer 0.6 % (0-5); Neutrophil # 4.05 X10^3/uL (2.7-7.7); Platelet Count 187 K/mm3 (150-450); RBC Distribution Width CV 14.4 % (11.6-14.6); Red Blood Count 3.62 M/mm3 (4.6-6.2); White Blood Count 6.6 K/mm3 (4.4-11.0)
[2022-01-06 11:01] LABS: Anion Gap 6 (5-15); BUN 45 mg/dL (7-18); BUN/Creat Ratio 17.6 RATIO (10-20); Calcium,Total 8.3 mg/dL (8.5-10.1); Chloride 101 mmol/L (98-107); Creatinine, Serum 2.56 mg/dL (0.70-1.30); EST Glomerular Filtration Rate 26 mL/min (>60); Est Glom Filt Rate - Afr Amer 32 mL/min (>60); Glucose 110 mg/dL (74-106); Sodium Level 135 mmol/L (136-145)
== END | disposition home or self-care (01) ==
LOC: LAB 09:17
PROVIDERS: PCP Family Medicine; Referring Provider Nurse Practitioner Family; Visit Provider Nurse Practitioner Family
DX: D69.6 Thrombocytopenia, unspecified (principal); I71.40 Abdominal aortic aneurysm, without rupture, unspecified; N28.9 Disorder of kidney and ureter, unspecified
CPT/HCPCS: 36415; 80048; 85025

== ENCOUNTER → 2022-01-21 | Outpatient (CLI) | payer MEDICARE, SELFPAY ==
[2022-01-21 15:16] LABS: ALB/GLOB Ratio 0.6 RATIO (0.9-2.4); AST(SGOT) 22 U/L (15-37); Alanine Aminotransfer ALT/SGPT 18 U/L (16-61); Albumin, Serum 2.5 g/dL (3.2-5.0); Alkaline Phosphatase 155 U/L (45-117); Anion Gap 8 (5-15); BUN 36 mg/dL (7-18); BUN/Creat Ratio 12.2 RATIO (10-20); Calcium,Total 8.2 mg/dL (8.5-10.1); Chloride 103 mmol/L (98-107); Creatinine, Serum 2.94 mg/dL (0.70-1.30); EST Glomerular Filtration Rate 23 mL/min (>60); Est Glom Filt Rate - Afr Amer 27 mL/min (>60); Globulin 4.3 g/dL (2.2-4.2); Glucose 111 mg/dL (74-106); Potassium 3.7 mmol/L (3.5-5.1); Protein, Total 6.8 g/dL (6.4-8.2); Sodium Level 140 mmol/L (136-145)
[2022-01-21 15:17] LABS: Hemoglobin A1c 5.9 % (3.8-5.6)
== END | disposition home or self-care (01) ==
LOC: MTLAB 12:43
PROVIDERS: PCP Family Medicine; Referring Provider Nurse Practitioner Family; Visit Provider Nurse Practitioner Family
DX: E11.9 Type 2 diabetes mellitus without complications (principal); N17.9 Acute kidney failure, unspecified
CPT/HCPCS: 36415; 80053; 83036

== ENCOUNTER → 2022-01-25 | Outpatient (CLI) | payer MEDICARE, SELFPAY ==
[2022-01-25 16:42] LABS: Bacteria 0 SEEN /hpf (None Seen); Mucous, Urine 0 SEEN /hpf (<or=2+); Squamous Epithelial Cells - UA 0 SEEN /hpf (0-5)
[2022-01-25 17:52] LABS: Color, Urine Yellow (Yellow); Glucose, Dipstick Normal (Normal); Ketone-Dipstick Negative (Negative); Leukocyte Esterase-Dipstick Negative /ul (Negative); Nitrite-Dipstick Negative (Negative); Occult Blood-Urine 250 /ul (Negative); Protein-Dipstick 30 mg/dl (Negative); Specific Gravity, Urine 1.015 (1.002-1.030); Urine Bilirubin Dipstick Negative (Negative); Urine Clarity Clear (Clear); Urine Urobilinogen Normal (Normal)
[2022-01-25 18:08] LABS: Red Blood Cells-Urine 10-25 SEEN /hpf (0-5); White Blood Cells 0-5 SEEN /hpf (0-5)
== END | disposition home or self-care (01) ==
LOC: LABSPEC 16:39
PROVIDERS: PCP Family Medicine; Visit Provider Family Medicine
DX: I71.30 Abdominal aortic aneurysm, ruptured, unspecified (principal)
CPT/HCPCS: 81001; 87086

== ENCOUNTER → 2022-02-25 | Outpatient (CLI) | payer MEDICARE, SELFPAY ==
[2022-02-25 10:17] LABS: Hematocrit 33.9 % (40-54); Hemoglobin 9.9 g/dL (13.0-16.5); Immature Platelet Fraction 5.5 % (1.0-7.9); Mean Corp Hgb Conc 29.2 g/dL (32-36); Mean Corpuscular Hgb 30.3 pg (27.0-32.0); Mean Corpuscular Volume 103.7 fL (80-94); Mean Platelet Vol. 10.3 fl (6.2-12.0); POSITIVE COUNT YES; POSITIVE MORPHOLOGY YES; Platelet Count 86 K/mm3 (150-450); RBC Distribution Width SD 72.1 fl (35.1-43.9); RET-HE 27.9 pg (30-35); Red Blood Count 3.27 M/mm3 (4.6-6.2)
[2022-02-25 10:25] LABS: Scan Indicated on CBC? Y/N YES- FLAGS NOTED
[2022-02-25 10:52] LABS: Anion Gap 7 (5-15); BUN 50 mg/dL (7-18); Calcium,Total 8.2 mg/dL (8.5-10.1); Chloride 107 mmol/L (98-107); EST Glomerular Filtration Rate 27 mL/min (>60); Est Glom Filt Rate - Afr Amer 33 mL/min (>60); Ferritin 232 ng/mL (26-388); Glucose 219 mg/dL (74-106); Iron 37 ug/dL (65-175); Iron Binding Capacity,Total 280 ug/dL (250-450); Potassium 4.2 mmol/L (3.5-5.1); Sodium Level 143 mmol/L (136-145)
== END | disposition home or self-care (01) ==
LOC: MFPLAB 08:14
PROVIDERS: PCP Family Medicine; Visit Provider Family Medicine
DX: N17.9 Acute kidney failure, unspecified (principal); D64.9 Anemia, unspecified
CPT/HCPCS: 36415; 80048; 82728; 83540; 83550; 85027; 85045

== ENCOUNTER 2022-02-26 07:59 | Outpatient (RCR) | payer MEDICARE, SELFPAY ==
--- NOTE | 2022-02-26 13:46 | HP.PTEVAL_ITS ---
Patient's Visit Information ABELARDO ROBERTS is a 72 year old M referred to Physical Therapy by TIMA ACKERMAN with a diagnosis of S/P AAA repair and ruptured AAA, debility. Date of Evaluation: 02/26/22 Physical Therapist: Sukhwinder Roberts DPT - Visit Plan Frequency: 2x /Week Duration: 6 Weeks Plan: Start with general endurance and gait training. Monitor SpO2 throughout. He is to follow up with PCP next week. I want him to talk with him about the wound on his L wrist as well as his feet, but also with his SpO2 dropping into mid/low 80% with walking. Monitor SpO2 during all mobility to maintain above - Subjective Pt. is here today for his initial evaluation with diagnosis of S/P AAA repair and ruptured AAA. Pt. reports having a Aortic repair in Dec of last year. Pt. reports initially doing well for the first 2 weeks, but the last few weeks he has been more fatigued, some chest tightness, general run down feeling. I don't have any energy. Pt. reports he has started taking steroid and anti biotic, still has a few more days of this. HE did have a heart valve replacement prior as well. Currently pt. is sleeping well, but does have some trouble breathing which will keep him up. Pt's main complaint is he loses his breath and fatigues rapidly with increased activities. Pt. lives by him self, daughter has been coming into help daily. He reports being able to walk through his house, but fatigues rapidly. Pt. also reports having a wound on his wrist, which recently was unroofed when he was in the shower. Pt. also has wounds on the top of his feet. Pt. is hopeful to increase his strength and increase his endurance allowing for increased ability to complete all ADLs without limitations. - Objective POSTURE: pt. has fwrd flexed posture in stance and sitting. he has normal ANDREE in stance uses walker for stability, but is able to stand without use of AD. PALPATION: Pt. has marked edema in BLEs (distally). He has 1+ pitting in BLE ankles. He also has a L ulnar styloid process wound. He reports that it is getting better. It is very dry and he reports the top layer did come off in the shower recently. He also has wounds over the top parts of his feet. All seem to be covered, but he is not using any dressing on them. He is unsure where they came from but did seem to appear after surgery. NEURO: Pt. has decreased sensation in B fingers and feet. Pt. does have 2+ Achilles and Patellar DTR. Pt is able to rise on heels and toes with balance assistance. ROM: Pt. had good ROM throughout BLEs and lumbar spine. Pt is a little tight with hip ER bilaterally and tight HS noted as well. MMT: RLE: ankle 4/5 throughout; knee: ext 4+/5, flexion 4/5; hip: flexion 4+/5, abd 4/5, ext 4/5. LLE: ankle 4/5 throughout; knee: ext 4+/5, flexion 4/5; hip: flexion 4+/5, abd 4/5, ext 4/5. Core strength- poor+. GAIT: Pt. ambulates with rollator with flexed posture, but decent stability. Pt. has normal step length, but fatigues rapidly. Pt. was able to ambulate 110' prior to needing to sit down. SpO2 does drop into 80s with walking. - Balance/Special Test Scores Lower Extremity Functional Score: 23 TUG Test Time Seconds: 27.3 6 Minute Walk Test: Pt. walked for 1:04 prior to needing to sit down. Pt. ambulated 121'. SpO2 was 84% after walking, rebounded to above 90% after 2 minutes. Pt. educated in pursed lip breathing as well. - Goals Goal 1:: LTG: Pt. to be I with HEP for progression of LE strength and overall endurance. Goal Time Frame: 6-8 Weeks Goal 2:: STG: Pt. to maintain above 90% SpO2 during all gait and functional activities. Goal Time Frame: 2-4 Weeks Goal 3:: LTG: Pt. to have increased BLE strength by 1/2 grade of all effected muscles. Goal Time Frame: 6-8 Weeks Goal 4:: LTG: Pt. to have improved TUG time to less than 15sec with use of rollator. Goal Time Frame: 4-6 Weeks Goal 5:: LTG: Pt. to be able to complete 6 MWT with at least 650' with maint aining above 90% SpO2 throughout. Goal Time Frame: 6-8 Weeks - Rehabilitation Potential Physical Therapy Diagnosis: Pt. has signs and symptoms consistent with S/P AAA repair and ruptured AAA and subsequent debility. Pt. has marked lack of endurance and general weakness. Pt. would benefit from PT to address the above issues getting back to all household and functional mobility without increase in fatigue. Rehabilitation Potential: Fair - Anticipated Interventions Patient/Client Instruction: Educate patient on: Condition, Plan of Care, Risk Factors, Benefits of Fitness Program For the Purpose of:: To facilitate caregiver knowledge, To improve self management, To prevent re-injury, To improve ability to perform tasks related to life management, To improve tolerance to ADL's Therapeutic Exercise to Include: Strength training, Power training, Endurance training, Balance training, Body mechanics, Postural training, Flexibilty training, Gait and locomotor training, Dynamic Lumbar Stabilization For the Purpose of:: To improve nutrient delivery to tissue, To increase oxygenation perfusion, To improve muscle performance and motor function, To improve ability to perform ADL's, To increase tolerance to activity/condition/position, To improve performance and independence with ADL's, To improve ability of physical actions for home/community/work/leisure, To improve gait and locomotor functions, To improve health of tissue, To decrease soft tissue restriction, To increase flexibility/ROM Thank you for the opportunity to evaluate your patient. For Medicare and Medicare HMO plans, please review the plan of care and approve it. It will need to be FAXED BACK to us at [phone] for Medicare purposes. For Medicare only, by signing this I certify the plan of care. Please let me know if there are questions or concerns regarding this plan of care. Physician Signature: Date:
== END 2022-02-26 19:00 | disposition home or self-care (01) ==
LOC: PT 07:59
PROVIDERS: PCP Family Medicine
DX: I71.30 Abdominal aortic aneurysm, ruptured, unspecified (principal)
CPT/HCPCS: 97162

== ENCOUNTER 2022-03-02 09:00 | Inpatient (IN) | payer MEDICARE, SELFPAY ==
[2022-03-02] VITALS (21 sets, daily range): BP systolic 110–181; BP diastolic 65–96; PULSE 73–97; RESP 16–29; TEMP 36.4–36.8; O2SAT 82–100; BMI 24.8
--- NOTE | 2022-03-02 09:25 | RAD_ITS ---
STUDY: X-RAY CHEST REASON FOR EXAM: Male, 72 years old. Shortness of breath. TECHNIQUE: Single AP portable view of the chest. COMPARISON: None. FINDINGS: EKG electrodes are seen. Right lower lobe infiltrate and small right pleural effusion. There is no demonstrated pleural abnormality. Sternal cerclage wires and vascular clips are present from a prior sternotomy and coronary artery bypass graft procedure (CABG). Normal mediastinum and daphne. Normal visualized pulmonary arteries. There is atherosclerotic calcification of the aortic arch with tortuosity. There are diffuse degenerative changes of the visualized thoracic spine. There is degenerative osteoarthritis of the bilateral shoulders. There is no demonstrated abnormality of the visualized soft tissue structures of the upper abdomen. RAD/Chest 1 View (Portable) IMPRESSION: Right lower lobe infiltrate with small right pleural effusion. Electronically Signed: Lebron Briseno MD at 10:38 EST ,
--- NOTE | 2022-03-02 09:25 | EKG12_ITS ---
Test Reason : SOB Blood Pressure : / mmHG Vent. Rate : 075 BPM Atrial Rate : 075 BPM P-R Int : 138 ms QRS Dur : 084 ms QT Int : 368 ms P-R-T Axes : 072 083 128 degrees QTc Int : 410 ms Normal sinus rhythm Nonspecific T wave abnormality Abnormal ECG Confirmed by JENNIFER CALLE, DOUG ([id number]), newspaper editor managing ABIDA RODAS ([id number]) on 03/03/2022 9:14:00 AM Referred By: SAULO Confirmed By:DOUG RODRIGUEZ MD
--- NOTE | 2022-03-02 09:27 | EDS_ITS ---
HPI History of Present Illness Chief Complaint: Shortness of Breath Informant: patient and family Onset/Context/Timing Onset: Weeks Context: gradual Timing: Continuous Current Severity: Mild Maximum Severity: Mild Associated Symptoms cough, fever, chills and white sputum Chest Pain: Positive for None Narrative Narrative: 72-year-old male history of AAA repair in December, anemia, CAD, CABG, aortic valve repair with a Valve, COPD and renal insufficiency. He has had a cough and shortness of breath for 1 to 2 weeks. Was treated respiratory care physician's office with steroids and antibiotic. He was seen today was hypoxic in the office and they wanted him evaluated. He denies chest pain or any hemoptysis. PE Risk Factors: Negative for Cancer, OCP + Smoking + > 35, Prior DVT or PE, Recent immobilization, Recent surgery or Recent travel Prior similar symptoms: Yes Recent Illness/Hospitalization: No PFSH PFSH Medical History Abdominal aortic aneurysm (AAA) Anemia Arthritis Atherosclerotic heart disease of [place] coronary artery without angina pectoris Bilateral inguinal hernia Carotid stenosis, bilateral Cough Essential hypertension Hyperlipidemia Intention tremor Left carotid bruit Nonrheumatic aortic (valve) stenosis PUD (peptic ulcer disease) Secondary pulmonary arterial hypertension Subcutaneous mass of back Tobacco dependence Home Medications albuterol sulfate 90 mcg/actuation aerosol inhaler 2 puff inhalation Q4H PRN Shortness Of Breath 03/14/19 [History Last Taken 03/02/22] acetaminophen 325 mg tablet 650 mg PO Q4H PRN Pain 01/06/22 [History Last Taken 02/16/22] docusate sodium 100 mg capsule (Colace) 100 mg PO BID constipation 01/06/22 [History Last Taken 03/02/22] albuterol sulfate 2.5 mg/3 mL (0.083 %) solution for nebulization 2.5 mg inhalation 4X/DAY PRN Shortness Of Breath 03/02/22 [History Last Taken 03/02/22] aspirin 81 mg tablet,delayed release 81 mg PO DAILY heart health 03/02/22 [History Last Taken 03/02/22] cholecalciferol (vitamin D3) 25 mcg (1,000 unit) tablet 25 mcg PO DAILY supplement 03/02/22 [History Last Taken 03/02/22] fluticasone propionate 50 mcg/actuation nasal spray,suspension 2 spray intranasal QHS congestion 03/02/22 [History Last Taken Unknown] metoprolol tartrate 25 mg tablet 12.5 mg PO BID blood pressure 03/02/22 [History Last Taken 03/02/22] rosuvastatin 5 mg tablet (Crestor) 5 mg PO DAILY cholesterol 03/02/22 [History Last Taken 03/02/22] Allergy/AdvReac Type Severity Reaction Status Date / Time No Known Allergies Allergy Verified 03/02/22 09:09 Family History Sister Asthma Mother Arthritis Diabetes Brother Cancer Unsure what kind- just a lump on his neck Surgical History 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) History of aortic valve replacement (02/12/19) History of left heart catheterization (11/27/18) No history of previous surgery Social History Smoking Status: Former smoker quit status: has quit before alcohol intake: never substance use type: does not use caffeine: Yes Type: coffee Number of servings: 3 what type of physical activity do you participate in: other frequency: 3-4 times per week seatbelt use: always ROS ROS ED ROS Narrative Cough, shortness of breath, fever or chills. Review of Systems ROS Unobtainable: Denies due to encephalopathy Constitutional Constitutional ED: Reports chills and fever(s) Eyes Eyes: Denies blurry vision ENT ENT ED: Denies ear pain or rhinorrhea Cardiovascular Cardiovascular: Denies chest pain or palpitations Respiratory/Chest Respiratory/Chest: Reports cough and dyspnea Gastrointestinal Gastrointestinal: Denies abdominal pain, constipation, diarrhea, melena, nausea or vomiting Genitourinary Genitourinary ED: Denies dysuria Musculoskeletal Musculoskeletal: Denies arthralgias Integumentary Denies abscess Neurologic Neurologic: Denies headache(s) Psychiatric Psychiatric: Denies anxiety Endocrine Endocrinology: Denies cold intolerance Hematologic/Lymphatic Hematologic/Lymphatic: Denies easy bleeding Allergic/Immunologic Allergic/Immunologic ED: Denies mouth swelling or tongue swelling EXAM Physical Exam Narrative Exam Narrative: 72-year-old male vital signs are stable except his pulse ox is 84% on room air consistent with hypoxia. On 3 L he is 97%. He does not look septic or toxic. He does not look dehydrated. H EENT exam unremarkable. Moist Riis membranes. Neck nontender no JVD. No lymphadenopathy. Lungs coarse breath sounds bilaterally. Productive cough of white sputum. Heart regular rate and rhythm rate about 85 no murmur. Abdomen soft nontender. Moving all 4 extremities. Thin. Calves are nontender without edema. Neurologically is awake and alert with no focal motor deficits. Const Vital Signs: 03/02/22 09:04 03/02/22 09:10 03/02/22 09:10 Temperature 98.0 F 98 F Temperature Source Temporal Temporal Pulse Rate 85 84 84 Respiratory Rate 17 17 Respiratory Effort Respiratory Depth Respiratory Pattern Blood Pressure 137/86 H 135/86 H Blood Pressure Mean 103 102 Pulse Ox 84 97 97 Oxygen Delivery Method Room Air Nasal Cannula Nasal Cannula Oxygen Flow Rate (L/min) 3 3 03/02/22 09:13 03/02/22 09:38 03/02/22 10:01 Temperature Temperature Source Pulse Rate 90 Respiratory Rate 19 H Respiratory Effort Short of Breath Respiratory Depth Normal Respiratory Pattern Normal Tachypnea Blood Pressure Blood Pressure Mean Pulse Ox Oxygen Delivery Method Nasal Cannula Oxygen Flow Rate (L/min) 3 03/02/22 11:10 03/02/22 11:10 03/02/22 12:05 Temperature 97.9 F Temperature Source Oral Pulse Rate 78 91 75 Respiratory Rate 25 H 19 H 23 H Respiratory Effort Respiratory Depth Respiratory Pattern Blood Pressure 151/88 H 151/88 H 173/65 H Blood Pressure Mean 109 109 101 Pulse Ox 96 97 96 Oxygen Delivery Method Nasal Cannula Nasal Cannula Nasal Cannula Oxygen Flow Rate (L/min) 3 3 3 Positive well nourished and well developed; Negative for obese, cachectic, contractures or unkempt General Appearance ED: well developed and NAD; Negative for unkempt, cachectic, contractures or pallor Nutritional Appearance: Negative for cachectic or obese HEENT Reports moist mucous membranes; Denies dry mucous membranes atraumatic; Negative for trauma or tenderness Mouth ED: No dry mucous membranes Mouth: No dry mucous membranes Eyes PERRL and EOMs intact bilaterally General Eye ED: Negative for pale conjunctiva, scleral icterus or other Neck no lymphadenopathy, supple, no meningeal signs and no JVD General: Negative for tenderness Lymph Lymphatic: Negative for other Chest Wall Chest: Negative for other Resp normal respiratory effort and clear to auscultation bilaterally Effort and Inspection: Negative for pain with movement Auscultation: Negative for rales, rhonchi or wheezes Cardio regular rate, regular rhythm, S1 normal heart sound, S2 normal heart sound and no murmurs Rate: Negative for bradycardia or tachycardic GI non-tender, non-distended and no masses Inspection: Negative for other Auscultation: normoactive bowel sounds Palpation: soft; Negative for tender or guarding Back/Spine no CVA tenderness and normal to inspection General Back: Negative for CVA tenderness or tenderness Extremity normal to inspection General Extremety ED: Negative for edema or tenderness General Extremity: Negative for edema Neuro oriented x3 and CN's II-XII intact bilaterally Sensorium / Orientation: alert, oriented to person, oriented to place and oriented to time; Negative for orientation impaired, confused, lethargic or stuporous Speech: speech normal Motor Exam: strength 5/5 throughout Psych mental status grossly normal Appearance: Negative for unkempt Attitude: No agitated Mood & Affect: Negative for depressed or anxious Thought Process: normal thought process Skin no wounds and skin turgor normal General Skin Exam: Negative for jaundice or pallor Lesions: no lesions Rashes: no rashes Trauma: Negative for abrasion MDM MDM MDM Narrative Medical decision making narrative: 72-year-old male with dyspnea, hypoxia consider COPD flare versus pneumonia versus influenza or COVID. Also consider things such as a pleural effusion. Clinically he has no significant risk factors for pulmonary emboli. Patient undergo cardiac work-up. Received Solu-Medrol and DuoNeb aerosol and reevaluated. Repeat exam at 12:17 PM unchanged. I went over her lab results and x-ray with the patient and family. He will be started on IV antibiotics for pneumonia. He needs to be admitted due to his hypoxia. He will be started on Rocephin and Zithromax. He does not look septic or toxic. Lab Data Attestation: I reviewed the patient's lab results. Lab results narrative: Chest x-ray is consistent with a right pleural effusion and or infiltrate. CBC shows white count 5.3. H&H of 12 and 40. Platelets are low at 117,000. Electrolytes show a gap of 6. BUN 44 creatinine 2.2. His troponin is normal at 56. COVID and influenza both negative. His renal insufficiency is consistent with his baseline. I did review prior labs and old records for comparison. Labs: Laboratory Results - last 24 hr 03/02/22 03/02/22 03/02/22 09:13 09:13 09:13 WBC 5.3 RBC 4.06 L Hgb 12.0 L Hct 40.7 MCV 100.2 H MCH 29.6 MCHC 29.5 L RDW Std Deviation 65.8 H RDW Coeff of Manjit 17.5 H Plt Count 117 L MPV 10.3 Immature Gran % (Auto) 0.400 Neut % (Auto) 66.7 Lymph % (Auto) 27.6 [place] % (Auto) 5.1 Eos % (Auto) 0.2 Baso % (Auto) 0.0 Absolute Neuts (auto) 3.6 Absolute Lymphs (auto) 1.47 Nucleated RBC % 0 Anisocytosis 1+ Sodium 141 Potassium 4.5 Chloride 106 Carbon Dioxide 29.0 Anion Gap 6 BUN 44 H Creatinine 2.24 H Estim Creat Clear Calc 26.90 Est GFR (MDRD) Af Amer 37 L Est GFR (MDRD) Non-Af 31 L BUN/Creatinine Ratio 19.6 Glucose 112 H Calcium 8.5 Troponin I High Sens 56 Radiography Chest X-Ray - ED: 1 View, Read by ED Physician, Heart, Mediastinum, Bony Structures, Chronic Changes, Right Infiltrate and Right Effusion Diagnostic Testing: Clinical Impression(s) from Imaging Studies Chest X-Ray 03/02/22 09:25 IMPRESSION: Right lower lobe infiltrate with small right pleural effusion. Electronically Signed: Lebron Briseno MD at 10:38 EST , Chest x-ray, portable, single view interpreted both by myself and the radiologist shows normal cardiac silhouette. Prior sternotomy. Right lower lobe pneumonia and pleural effusion. Rhythm Strip Rhythm Strip: Sinus Rhythm Rate: 75 Ectopy: None EKG Initial EKG: Attestation: I personally reviewed and interpreted this EKG as follows: Interpretation: Sinus Rhythm and No Acute Injury Pattern Comments: Normal sinus rhythm rate of 75 no acute signs of ID or ischemia. Discharge Plan Triage Chief Complaint: Shortness of Breath ED Provider: Nhan Garland Dx/Rx/DC Orders Clinical Impression: Hypoxia, Pneumonia, Pleural effusion, COPD exacerbation, Chronic kidney insufficiency Prescriptions: No Action albuterol sulfate 90 mcg/actuation HFA aerosol inhaler 2 puff INHALATION Q4H PRN (Reason: Shortness Of Breath) acetaminophen 325 mg tablet 650 mg PO Q4H PRN (Reason: Pain) docusate sodium [Colace] 100 mg capsule 100 mg PO BID albuterol sulfate 2.5 mg /3 mL (0.083 %) solution for nebulization 2.5 mg inhalation 4X/DAY PRN (Reason: Shortness Of Breath) fluticasone propionate 50 mcg/actuation spray,suspension 2 spray INTRANASAL QHS cholecalciferol (vitamin D3) 25 mcg (1,000 unit) Tablet 25 mcg PO DAILY aspirin 81 mg tablet,delayed release (DR/EC) 81 mg PO DAILY rosuvastatin [Crestor] 5 mg tablet 5 mg PO DAILY metoprolol tartrate 25 mg tablet 12.5 mg PO BID Primary Care Provider: Ezekiel Carrasco Referrals: Ezekiel Carrasco MD [Primary Care Provider] - Disposition Disposition: Acute Care Hospital [facility]
[2022-03-02] MEDS: Ipratropium/Albuterol Sulfate 3 ML AMPUL.NEB INHALATION ×3 (10:11→22:55)
[2022-03-02] MEDS: MethylPREDNISolone 125 MG/2 ML Vial IV (10:13)
[2022-03-02 10:18] LABS: Absolute Lymphocyte Count 1.47 X10^3/uL (0.83-4.51); Absolute Neutrophil Count 3.6 X10^3/uL (2.0-7.7); Eosinophil# 0.01 X10^3/uL; Eosinophils% 0.2 % (0-5); Hematocrit 40.7 % (40-54); Lymphocyte # 1.47 X10^3/ul (0.83-4.51); Lymphocyte % 27.6 % (19-41); Mean Corp Hgb Conc 29.5 g/dL (32-36); Mean Corpuscular Hgb 29.6 pg (27.0-32.0); Mean Corpuscular Volume 100.2 fL (80-94); Mean Platelet Vol. 10.3 fl (6.2-12.0); Monocyte# 0.27 X10^3/uL; Monocyte% 5.1 % (0-10); NRBC Flagged by Analyzer 0 % (0-5); Neutrophil # 3.56 X10^3/uL (2.7-7.7); Neutrophil % 66.7 % (47-70); POSITIVE MORPHOLOGY YES; Platelet Count 117 K/mm3 (150-450); RBC Distribution Width CV 17.5 % (11.6-14.6); RBC Distribution Width SD 65.8 fl (35.1-43.9); Red Blood Count 4.06 M/mm3 (4.6-6.2); White Blood Count 5.3 K/mm3 (4.4-11.0)
[2022-03-02 10:21] LABS: Anion Gap 6 (5-15); BUN 44 mg/dL (7-18); BUN/Creat Ratio 19.6 RATIO (10-20); Calcium,Total 8.5 mg/dL (8.5-10.1); Chloride 106 mmol/L (98-107); Creatinine, Serum 2.24 mg/dL (0.70-1.30); EST Glomerular Filtration Rate 31 mL/min (>60); Est Glom Filt Rate - Afr Amer 37 mL/min (>60); Glucose 112 mg/dL (74-106); Potassium 4.5 mmol/L (3.5-5.1); Sodium Level 141 mmol/L (136-145)
[2022-03-02 10:29] LABS: Troponin-I HS 56 pg/mL (3.0-78.0)
[2022-03-02 10:32] LABS: Differential Indicated SCAN CRITERIA MET
--- NOTE | 2022-03-02 10:37 | ED.RN ---
Pt with c/o of chest dull pain that lasts for a few seconds. 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 MD notified at this time.
[2022-03-02 10:43] LABS: Anisocytosis 1+
--- NOTE | 2022-03-02 12:19 | ED.RN ---
PER DR. HUMMEL BLOOD CULTURES NOT NEEDED PRIOR TO ANTIBIOTIC ADMINISTRATION.
--- NOTE | 2022-03-02 12:33 | HP.PCM.HOS_ITS ---
HPI - General General Date of Admission: 03/02/22 Date of Service: 03/02/22 Chief Complaint: Shortness of breath HPI Narrative ABELARDO ROBERTS, is a 72 M who presented to the emergency department [facility] on 03/02/2022 with a chief complaint of shortness of breath. He has had associated symptoms of cough, subjective fever and chills as well as white sputum production. Patient's evidently had symptoms for almost 2 weeks n ow. He presented to his primary care physician's office and was treated with steroids IV and orally and oral antibiotics. He completed his oral antibiotics today. They reevaluated him in the office today and he was noted to be hypoxic and he was sent to the emergency department. He denies any chest pain or hemoptysis. He has a history of tobacco abuse and just quit in December when he had his AAA repaired. He states he has been smoking since he was about 12 years old prior to that point. He has not previously qualified for oxygen however has not been tested with exertion per his daughter. He states he has been getting worse rather than getting better. Upon presentation to the emergency department he had temperature of 98 degrees, heart rate of 85, blood pressure of 137/86 and his oxygen saturation was 84% on room air. Respiratory rates have been anywhere between 18 and 28 during his ER course. Given his hypoxemia on presentation he was placed on nasal cannula 3 L and oxygen saturations improved to 95 to 97%. His CBC showed some mild stable anemia with a hemoglobin of 12 as well as thrombocytopenia with a platelet count of 117,000-this appears chronic as well. No left shift was present. His chemistry panel showed an elevated BUN/creatinine at his baseline being 44 and 2.24 respectively. Initial troponin was 56. Chest x-ray was performed and showed a right lower lobe infiltrate with a small right pleural effusion. I did compare this to previous CAT scan that was performed and there is no abnormality on the CAT scan in the right lower lobe from December. An EKG was also performed and showed some nonspecific T wave flattening in the lateral leads but was otherwise unremarkable with normal intervals and normal sinus rhythm. The emergency department he was treated with aerosols, methylprednisolone 125 mg x 1 and started on ceftriaxone and azithromycin. [facility] Medical History Abdominal aortic aneurysm (AAA) Anemia Arthritis Atherosclerotic heart disease of [place] coronary artery without angina pectoris Bilateral inguinal hernia Carotid stenosis, bilateral Cough Essential hypertension Hyperlipidemia Intention tremor Left carotid bruit Nonrheumatic aortic (valve) stenosis PUD (peptic ulcer disease) Secondary pulmonary arterial hypertension Stage 3b chronic kidney disease (CKD) Subcutaneous mass of back Thrombocytopenia Tobacco dependence Home Medications albuterol sulfate 90 mcg/actuation aerosol inhaler 2 puff inhalation Q4H PRN Shortness Of Breath 03/14/19 [History Last Taken 03/02/22] acetaminophen 325 mg tablet 650 mg PO Q4H PRN Pain 01/06/22 [History Last Taken 02/16/22] docusate sodium 100 mg capsule (Colace) 100 mg PO BID constipation 01/06/22 [History Last Taken 03/02/22] albuterol sulfate 2.5 mg/3 mL (0.083 %) solution for nebulization 2.5 mg inhalation 4X/DAY PRN Shortness Of Breath 03/02/22 [History Last Taken 03/02/22] aspirin 81 mg tablet,delayed release 81 mg PO DAILY heart health 03/02/22 [History Last Taken 03/02/22] cholecalciferol (vitamin D3) 25 mcg (1,000 unit) tablet 25 mcg PO DAILY supplement 03/02/22 [History Last Taken 03/02/22] fluticasone propionate 50 mcg/actuation nasal spray,suspension 2 spray intranasal QHS congestion 03/02/22 [History Last Taken Unknown] metoprolol tartrate 25 mg tablet 12.5 mg PO BID blood pressure 03/02/22 [History Last Taken 03/02/22] rosuvastatin 5 mg tablet (Crestor) 5 mg PO DAILY cholesterol 03/02/22 [History Last Taken 03/02/22] Allergy/AdvReac Type Severity Reaction Status Date / Time No Known Allergies Allergy Verified 03/02/22 09:09 Family History Sister Asthma Mother Arthritis Diabetes Brother Cancer Unsure what kind- just a lump on his neck Surgical History (Updated 03/02/22 @ 12:[address] Beatris Banks DO) 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) History of aortic valve replacement (02/12/19) History of left heart catheterization (11/27/18) No history of previous surgery S/P AAA repair Social History (Updated 03/02/22 @ 12:[address] Beatris Banks, DO) Smoking Status: Former smoker quit date: 12/28/21 pack-years: 58 quit status: has quit before alcohol intake: never substance use type: does not use caffeine: Yes Type: coffee Number of servings: 3 what type of physical activity do you participate in: other frequency: 3-4 times per week seatbelt use: always ROS Constitutional Constitutional: Reports chills, fatigue, fever(s), malaise and weakness; Denies anorexia, change in weight, night sweats or other Eyes Eyes: Denies blurry vision, change in eye color, change in vision, discharge from eye(s), double vision, erythema, eye pain, loss of vision or other ENT HEENT: Reports hearing loss; Denies abnormal hearing, dysphagia, ear pain, epistaxis, headache(s), nasal congestion, nasal discharge, post nasal drip, sinus pressure, sore throat or other Cardiovascular Cardiovascular: Denies chest pain, claudication, dyspnea on exertion, edema, lightheadedness, orthopnea, palpitations, paroxysmal nocturnal dyspnea, rapid heart rate, syncope or other Respiratory/Chest Respiratory/Chest: Reports cough, dyspnea, excessive phlegm production, productive cough, shortness of breath at rest, shortness of breath with exertion and wheezing; Denies hemoptysis or other Gastrointestinal Gastrointestinal: Denies abdominal pain, coffee ground emesis, constipation, diarrhea, dyspepsia, hematemesis, hematochezia, loose stools, melena, nausea, vomiting or other Genitourinary Genitourinary: Denies burning urination, difficulty urinating, dysuria, hematuria, nocturia, urinary frequency, urinary hesitancy, urinary incontinence, urinary urgency or other Musculoskeletal Musculoskeletal: Reports back pain and joint pain; Denies arthralgias, joint stiffness, joint swelling, myalgias, neck pain or other Neurologic Neurologic: Denies abnormal gait, abnormal speech, confusion, disequilibrium, dizziness, focal weakness, headache(s), numbness, paresthesias, seizure-like activity, seizures, syncope, tingling, tremor(s) or other Psychiatric Psychiatric: Denies anxiety, depression, homicidal ideation, suicidal ideation or other Endocrine Endocrinology: Denies change in body appearance, cold intolerance, excessive sweating, heat intolerance, polydipsia, polyuria or other Hematologic/Lymphatic Hematologic/Lymphatic: Reports easy bruising; Denies anemia, easy bleeding, lymphadenopathy or other Allergic/Immunologic Allergic/Immunologic: Denies rhinitis, hives, eczemia, asthma or other Vital Signs Vital Signs Vital Signs: 03/02/22 09:04 03/02/22 09:10 03/02/22 09:10 Temperature 98.0 F 98 F Temperature Source Temporal Temporal Pulse Rate 85 84 84 Respiratory Rate 17 17 Respiratory Effort Respiratory Depth Respiratory Pattern Blood Pressure 137/86 H 135/86 H Blood Pressure Mean 103 102 Pulse Ox 84 97 97 Oxygen Delivery Method Room Air Nasal Cannula Nasal Cannula Oxygen Flow Rate (L/min) 3 3 03/02/22 09:13 03/02/22 09:38 03/02/22 10:01 Temperature Temperature Source Pulse Rate 90 Respiratory Rate 19 H Respiratory Effort Short of Breath Respiratory Depth Normal Respiratory Pattern Normal Tachypnea Blood Pressure Blood Pressure Mean Pulse Ox Oxygen Delivery Method Nasal Cannula Oxygen Flow Rate (L/min) 3 03/02/22 11:10 03/02/22 11:10 03/02/22 12:05 Temperature 97.9 F Temperature Source Oral Pulse Rate 78 91 75 Respiratory Rate 25 H 19 H 23 H Respiratory Effort Respiratory Depth Respiratory Pattern Blood Pressure 151/88 H 151/88 H 173/65 H Blood Pressure Mean 109 109 101 Pulse Ox 96 97 96 Oxygen Delivery Method Nasal Cannula Nasal Cannula Nasal Cannula Oxygen Flow Rate (L/min) 3 3 3 03/02/22 12:20 Temperature 97.5 F L Temperature Source Temporal Pulse Rate 97 Respiratory Rate 28 H Respiratory Effort Respiratory Depth Respiratory Pattern Blood Pressure 147/94 H Blood Pressure Mean 111 Pulse Ox 95 Oxygen Delivery Method Nasal Cannula Oxygen Flow Rate (L/min) 3 Weight Weight: 69.853 kg Body Mass Index (BMI) 24.8 Physical Exam Const alert, oriented x3 and no apparent distress Constitutional Narrative: Older white male lying in bed, thin, appears older than stated age, daughter at bedside, patient appears comfortable at this time, nursing intermittently at bedside as well, no current signs of respiratory distress on 3 L nasal cannula however patient does have some tachypnea General Appearance: cooperative HEENT normocephalic, head/scalp atraumatic and moist oral mucous membranes HEENT Narrative: Upper dentures in place, Mallampati 2, no thrush, mild hearing loss Eyes PERRL, EOMs intact bilaterally and conjunctivae normal Eyes Narrative: No scleral icterus Neck no lymphadenopathy, supple, no JVD and no carotid bruits Resp No normal respiratory effort, no retractions and no use of accessory muscles Resp Narrative: Diffusely diminished with rhonchi in right base and right middle lobe with scattered wheeze, tachypnea with some conversational dyspnea Auscultation: rhonchi and wheezes; Negative for crackles Cardio Negative for regular rate, regular rhythm, S1 normal heart sound, S2 normal heart sound, no murmurs, no rub, no gallops, no clicks or no JVD GI non-distended and hepatosplenomegaly; Negative for normal to inspection, nondistended, normoactive bowel sounds, soft to palpation or non-tender Extremity no clubbing, cyanosis or edema; Negative for normal to inspection Extremity Narrative: Decreased lean muscle mass Skin Skin Narrative: Scattered wounds noticed on bilateral lower extremities and bilateral upper extremities-family reports these are much improved from previous, no signs of infection Neuro oriented x3, CN's II-XII intact bilaterally, moves all extremities and no focal motor deficits Neuro Narrative: Mild generalized weakness-proximal greater than distal Speech: speech normal Psych affect normal Psych Narrative: Very pleasant, appropriately interactive Results Lab / Micro Data Attestation: I reviewed the patient's lab results. Result Diagrams: 03/02/22 09:13 03/02/22 09:13 Labs: Laboratory Results - last 24 hr 03/02/22 09:13: WBC 5.3, RBC 4.06 L, Hgb 12.0 L, Hct 40.7, MCV 100.2 H, MCH 29.6, MCHC 29.5 L, RDW Std Deviation 65.8 H, RDW Coeff of Manjit 17.5 H, Plt Count 117 L, MPV 10.3, Immature Gran % (Auto) 0.400, Neut % (Auto) 66.7, Lymph % (Auto ) 27.6, [place] % (Auto) 5.1, Eos % (Auto) 0.2, Baso % (Auto) 0.0, Absolute Neuts (auto) 3.6, Absolute Lymphs (auto) 1.47, Nucleated RBC % 0, Anisocytosis 1+ 03/02/22 09:13: Sodium 141, Potassium 4.5, Chloride 106, Carbon Dioxide 29.0, Anion Gap 6, BUN 44 H, Creatinine 2.24 H, Estim Creat Clear Calc 26.90, Est GFR (MDRD) Af Amer 37 L, Est GFR (MDRD) Non-Af 31 L, BUN/Creatinine Ratio 19.6, Glucose 112 H, Calcium 8.5 03/02/22 09:13: Troponin I High Sens 56 Micro: Microbiology 03/02/22 10:15 Nasal Secretion SARS-CoV-2 & FLU Antigen (Rapid) - Final Rhythm Strip Rhythm Strip: Sinus Rhythm Rate: 75 Ectopy: None Radiology Impression Chest X-Ray 03/02/22 09:25 IMPRESSION: Right lower lobe infiltrate with small right pleural effusion. Electronically Signed: Lebron Briseno MD at 10:38 EST Reading Location ID and State: [address] [place] [address] , Service support , Assessment & Plan Assessment/Plan (1) Acute respiratory failure with hypoxia: (2) Pneumonia: (3) Pleural effusion: (4) COPD exacerbation: PLAN: Plan Acute hypoxic respiratory failure secondary to right lower lobe pneumonia/acute exacerbation of COPD -Patient with tachypnea, hypoxemia with oxygen saturations in the 80s on room air which is his baseline as well as conversational dyspnea on supplemental oxygen -COVID/flu antigen negative -Check respiratory viral panel -Check strep pneumo Legionella antigens -Check sputum culture -I-S/Pep therapy -We will utilize ceftriaxone and azithromycin for now -Solu-Medrol 40 mg every 8 hours with transition to prednisone taper as able -If patient does not clinically improve may consider CT scan of the chest given abnormalities on chest x-ray -Currently requiring supplemental oxygen at 3 L to maintain oxygen saturations greater than 92% -Will need ambulatory pulse ox prior to discharge as I suspect patient may need supplemental oxygen at least with exertion at baseline -Patient does not follow with pulmonary medicine as an outpatient--> would recommend referral at discharge -Consider starting combination inhaled steroid/LABA prior to discharge Small right pleural effusion -May be parapneumonic however not large enough to tap -Continue to monitor clinically and with imaging as needed Chronic anemia -Hemoglobin is stable at 12 -Repeat CBC in a.m. Chronic thrombocytopenia -Platelet count is 117,000 -Appears stable -Repeat CBC in a.m. Multiple wounds -Related to his previous surgery in December -Slow healing likely related to his vascular disease -Would recommend follow-up as an outpatient with vascular surgery after discharge CKD stage IIIb -Current serum creatinine is 2.25 -Currently at baseline -Monitor clinically -Avoid nephrotoxins as able AAA with repair -Repair at [facility] [place] in December 2021 -Continue tobacco cessation -Continue aspirin, metoprolol, rosuvastatin Hypertension -Continue metoprolol 12.5 mg p.o. twice daily Hyperlipidemia -Continue Crestor 5 mg daily Vitamin D deficiency -Continue cholecalciferol Bilateral carotid artery stenosis -No bruit on auscultation during exam -Continue medical therapy as noted above History of peptic ulcer disease -No current issues -Patient is not on PPI at baseline DVT prophylaxis -heparin 5000 TID -SCD's Code Status DNR CCA- no intubation Charges/Coding Visit Charges Inpatient E&M: 58621 Init Hosp L3
[2022-03-02] MEDS: Ceftriaxone 1 GM/50 ML BAG IV (12:34)
--- NOTE | 2022-03-02 12:40 | ED.RN ---
PER DR. MOON BLOOD CULTURES NOT NEEDED PRIOR TO ANTIBIOTIC ADMINISTRATION DUE TO PRIOR ANTIBIOTIC TAKEN AT HOME BY PT.
--- NOTE | 2022-03-02 13:06 | NURSING ---
MED SURG RED RLL PNEUMONIA, HYPOXIA, COPD, RI, CABG
[2022-03-02] MEDS: Heparin Injection (Vial) 5,000 UNIT/ML VIAL 5000 UNIT SC ×2 (17:40→21:32)
--- NOTE | 2022-03-02 19:52 | CPS ---
Increased O2 to 4 lpm on NC
[2022-03-02 20:07] LABS: M R Staph aureus DNA By PCR Negative (Negative); Probe Check PASS; Specimen Processing Control PASS
[2022-03-02] MEDS: guaiFENesin 1,200 MG Tablet 1200 MG PO (21:32)
[2022-03-02] MEDS: 0.9% Saline Lock 10 ML Syringe IV (21:32)
[2022-03-02] MEDS: Fluticasone 0.05% 1 SPRAY NASAL.SRY 2 SPRAY NASAL (21:32)
[2022-03-02] MEDS: Docusate Sodium 100 MG Capsule PO (21:32)
[2022-03-02] MEDS: Metoprolol Tartrate 25 MG Tablet 12.5 MG PO (21:32)
[2022-03-03] VITALS (13 sets, daily range): BP systolic 118–139; BP diastolic 59–92; PULSE 70–94; RESP 16–26; TEMP 36.4–36.7; O2SAT 95–98
[2022-03-03] MEDS: Ipratropium/Albuterol Sulfate 3 ML AMPUL.NEB INHALATION ×5 (02:55→21:40)
[2022-03-03] MEDS: Heparin Injection (Vial) 5,000 UNIT/ML VIAL 5000 UNIT SC ×3 (05:05→21:21)
[2022-03-03] MEDS: 0.9% Saline Lock 10 ML Syringe IV ×2 (05:05→21:21)
[2022-03-03 06:03] LABS: Absolute Neutrophil Count 2.5 X10^3/uL (2.0-7.7); Differential Indicated SCAN CRITERIA MET; Hematocrit 33.2 % (40-54); Hemoglobin 9.8 g/dL (13.0-16.5); Mean Corp Hgb Conc 29.5 g/dL (32-36); Mean Corpuscular Hgb 29.8 pg (27.0-32.0); Mean Corpuscular Volume 100.9 fL (80-94); Mean Platelet Vol. 10.3 fl (6.2-12.0); Monocyte# 0.07 X10^3/uL; Monocyte% 2.2 % (0-10); NRBC Flagged by Analyzer 0 % (0-5); Neutrophil # 2.47 X10^3/uL (2.7-7.7); Neutrophil % 78.5 % (47-70); POSITIVE COUNT YES; POSITIVE DIFFERENTIAL YES; Platelet Count 98 K/mm3 (150-450); RBC Distribution Width SD 63.9 fl (35.1-43.9); Red Blood Count 3.29 M/mm3 (4.6-6.2); White Blood Count 3.2 K/mm3 (4.4-11.0)
[2022-03-03 06:20] LABS: Anisocytosis 1+; Macrocytosis 1+; Platelet Estimate MOD DEC (ADEQ)
[2022-03-03 06:50] LABS: ALB/GLOB Ratio 0.6 RATIO (0.9-2.4); AST(SGOT) 18 U/L (15-37); Alanine Aminotransfer ALT/SGPT 15 U/L (16-61); Albumin, Serum 2.6 g/dL (3.2-5.0); Alkaline Phosphatase 138 U/L (45-117); Anion Gap 7 (5-15); BUN 52 mg/dL (7-18); BUN/Creat Ratio 19.4 RATIO (10-20); Calcium,Total 8.3 mg/dL (8.5-10.1); Chloride 104 mmol/L (98-107); Creatinine, Serum 2.68 mg/dL (0.70-1.30); EST Glomerular Filtration Rate 25 mL/min (>60); Est Glom Filt Rate - Afr Amer 30 mL/min (>60); Estimated Creatinine Clearance 22.48 ml/min; Globulin 4.2 g/dL (2.2-4.2); Glucose 207 mg/dL (74-106); Magnesium 1.9 mg/dL (1.6-2.6); Phosphorus 4.9 mg/dL (2.5-4.9); Potassium 4.3 mmol/L (3.5-5.1); Protein, Total 6.8 g/dL (6.4-8.2); Sodium Level 139 mmol/L (136-145); Thyroid Stim Hormone (TSH) 2.41 uIU/mL (0.358-3.74)
[2022-03-03] MEDS: Cholecalciferol (VIT D3) 25 MCG TABLET (1,000 UNITS) PO (08:05)
[2022-03-03] MEDS: Aspirin E.C. 81 MG Tablet PO (08:06)
[2022-03-03] MEDS: Azithromycin 250 MG Tablet 500 MG PO (09:25)
[2022-03-03] MEDS: Docusate Sodium 100 MG Capsule PO ×2 (09:25→21:17)
[2022-03-03] MEDS: Metoprolol Tartrate 25 MG Tablet 12.5 MG PO ×2 (09:25→21:18)
[2022-03-03] MEDS: guaiFENesin 1,200 MG Tablet 1200 MG PO ×2 (09:26→21:17)
--- NOTE | 2022-03-03 11:40 | CASEMGMT ---
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 Also notified of pt interested in completing AD and to notify SW. PT/OT orders placed. Original Note: RN?CM?FIBRE CEMENT MOULDER?CM?placed call to pt's room for initial transition planning/care coordination?assessment.?RN?CM?introduced self and role at [facility].? Pt voices understanding and consents to?assessment?at this time.? Pt is A/O at this time and answers all questions appropriately.?? Care providers, pharmacy, and demographics verified/updated at this time.? PCP:?Dr Carrasco Specialists:?Dr Farrar-cardiology Preferred Pharmacy: [facility]? Insurance:?MCR A/B Prescription Benefit:??Yes Living Will/HPOA:??Pt does not currently have LW/HCPOA and interested in completing. He states would like his daughter, Kary, to be primary POA and his son, Emery, to be 1st alternative. LNOK:? Dtr, Kary Cabral. Son, Emery Ivory. Pt has 3 other children. Living Arrangements:?Lives alone in 2-story home w/1 step to enter. Bedroom and bathroom on 2nd floor. Also has 1/2 bathroom on main floor. Independent w/ADL's and manages his own medications. Pt states since he started not feeling well about 1 1/2 - 2 wks ago, his daughter has been assisting w/getting groceries and other home tasks. Transportation:?Pt drives @ baseline. Dtr, Kary, able to help when needed. DME: ?States has the following DME:??nebulizer, rollator, shower chair. Has a WC available, if needed. Pt does not have home O2 or pulse ox. Reviewed list of local DME co's and made aware [employer] is affiliated w/[facility]. Pt chooses [employer], should he need O2 @ dc. Pt states it is affordable to purchase a pulse ox and made aware of locations where he could purchase one. HHC/SNF:?No hx of either. Pt states he may be interested in HHC. Pt wishes to return home and states has no concerns with going home at time of discharge.? ?CM?to follow for home oxygen needs and any further discharge planning/needs.? Pt voices no further concerns/needs at this time.? Advised pt to ask for?CM?if any further questions/concerns/needs arise.? Voices understanding.? PLAN:??Home w/possible HHC and possible Home O2. CM to follow referral for AD Lane BSN?RN?CM
[2022-03-03] MEDS: Petrolatum 33% Tube 1 APPLIC TOPICAL (14:20)
--- NOTE | 2022-03-03 15:02 | CASEMGMT ---
Social Work Referral from RN to complete HCPOA. SW met with pt, son and dgt and introduced self and role of SW. SW assisted pt in completing HCPOA naming his Dgt Kary Cabral and son Emery Ivory. Copy placed on pt chart and original given to pt. Pt states he has a living will at home and will bring it into hosptial for scanning into medical record. CARLTON Worley
--- NOTE | 2022-03-03 16:08 | PCM.PN.HOSP ---
Subjective Subjective Patient states he is at least 25% better today. Has been able to ambulate around the room without any significant shortness of breath which was a problem for him at home. Feels better with oxygen in place. Is agreeable to follow-up with vascular after discharge as well as pulmonary medicine. He does not see either a baseline. Objective Data Objective Data Vital Signs: Vital Signs Temp Pulse Resp BP Pulse Ox O2 Del Method O2 Flow Rate 98.0 F 85 16 123/74 H 97 Room Air 3 03/03/22 14:16 03/03/22 14:16 03/03/22 14:16 03/03/22 14:16 03/03/22 14:16 03/03/22 14:16 03/03/22 08:00 FiO2 4 03/03/22 02:55 Oxygen Flow Rate (L/min) 3 Oxygen Delivery Method Room Air Weight: 69.853 kg Body Mass Index (BMI) 24.8 Intake & Output: Intake and Output for Last 24 Hours 03/01/22 03/02/22 03/03/22 23:59 23:59 23:59 Intake Total 353.5 / 593.5 650.25 / 650.25 Output Total 400 / 400 Balance 353.5 / 593.5 250.25 / 250.25 Lab / Micro Data Result Diagrams: 03/03/22 05:36 03/03/22 05:36 Labs: Laboratory Results - last 24 hr 03/02/22 16:35: MRSA (PCR) Negative 03/03/22 05:36: WBC 3.2 L, RBC 3.29 L, Hgb 9.8 L, Hct 33.2 L, MCV 100.9 H, MCH 29.8, MCHC 29.5 L, RDW Std Deviation 63.9 H, RDW Coeff of Manjit 17.0 H, Plt Count 98 L, MPV 10.3, Immature Gran % (Auto) 0.300, Neut % (Auto) 78.5 H, Lymph % (Auto) 19.0, [place] % (Auto) 2.2, Eos % (Auto) 0.0, Baso % (Auto) 0.0, Absolute Neuts (auto) 2.5, Absolute Lymphs (auto) 0.60 L, Nucleated RBC % 0, Diff Path Review May foll, Platelet Estimate MOD DEC, Anisocytosis 1+, Macrocytosis 1+ 03/03/22 05:36: Sodium 139, Potassium 4.3, Chloride 104, Carbon Dioxide 28.0, Anion Gap 7, BUN 52 H, Creatinine 2.68 H, Estim Creat Clear Calc 22.48, Est GFR (MDRD) Af Amer 30 L, Est GFR (MDRD) Non-Af 25 L, BUN/Creatinine Ratio 19.4, Glucose 207 H, Calcium 8.3 L, Phosphorus 4.9, Magnesium 1.9, Total Bilirubin 0.60, AST 18, ALT 15 L, Alkaline Phosphatase 138 H, Total Protein 6.8, Albumin 2.6 L, Globulin 4.2, Albumin/Globulin Ratio 0.6 L, TSH 2.41 Micro: Microbiology 03/03/22 03:10 Sputum, Expectorated/Coughed Gram Stain - Final 03/03/22 03:59 Urine, Random Legionella Antigen - Final 03/03/22 03:59 Urine, Random Streptococcus pneumoniae Antigen (M - Final 03/02/22 16:40 Mucosa - Nasopharyngeal Respiratory Panel (PCR) - Final 03/02/22 10:15 Nasal Secretion SARS-CoV-2 & FLU Antigen (Rapid) - Final Rhythm Strip Rhythm Strip: Sinus Rhythm Rate: 75 Ectopy: None Physical Exam Const alert, oriented x3 and no apparent distress Constitutional Narrative: Older white male sitting up in chair at the bedside, watching television, thin, appears older than stated age, very comfortable and currently on 2 L supplemental nasal cannula, nontoxic General Appearance: cooperative HEENT normocephalic, head/scalp atraumatic and moist oral mucous membranes HEENT Narrative: Dentition is poor, no thrush Resp normal respiratory effort, no retractions, no use of accessory muscles and clear to auscultation bilaterally Resp Narrative: Diffusely diminished but clear this morning, no tachypnea or conversational dyspnea Auscultation: Negative for crackles, rhonchi or wheezes Cardio regular rate, regular rhythm, S1 normal heart sound, S2 normal heart sound, no murmurs, no rub, no gallops and no clicks GI normal to inspection, nondistended, normoactive bowel sounds, soft to palpation and non-tender Extremity no clubbing, cyanosis or edema Extremity Narrative: Decreased lean muscle mass Skin Skin Narrative: Scattered wounds noticed on bilateral lower extremities and bilateral upper extremities-family reports these are much improved from previous, no signs of infection Neuro oriented x3, moves all extremities and no focal motor deficits Neuro Narrative: Mild generalized weakness-proximal greater than distal Speech: speech normal Psych affect normal Psych Narrative: Very pleasant, appropriately interactive Assessment & Plan Assessment/Plan (1) Acute respiratory failure with hypoxia: (2) Pneumonia: (3) Pleural effusion: (4) COPD exacerbation: PLAN: Plan Acute hypoxic respiratory failure secondary to right lower lobe pneumonia/acute exacerbation of COPD -Patient with tachypnea, hypoxemia with oxygen saturations in the 80s on room air which is his baseline as well as conversational dyspnea on supplemental oxygen -COVID/flu antigen negative -Respiratory viral panel is unremarkable -Strep pneumo and Legionella antigens are negative -Sputum culture obtained and shows gram-positive rods and cocci on gram stain thus far with culture pending -I-S/Pep therapy -Continue ceftriaxone and azithromycin -Continue Solu-Medrol -Patient has been weaned to 2 L nasal cannula and oxygen saturations are in the mid 90s -Continue to wean as able -Will need ambulatory pulse ox prior to discharge as I suspect patient may need supplemental oxygen at least with exertion at baseline -Patient does not follow with pulmonary medicine as an outpatient--> would recommend referral at discharge -Consider starting combination inhaled steroid/LABA prior to discharge Small right pleural effusion -May be parapneumonic however not large enough to tap -Continue to monitor clinically and with imaging as needed Chronic anemia -Hemoglobin down but now appears to be at baseline -Repeat CBC in a.m. Chronic thrombocytopenia -At baseline -Appears stable -Repeat CBC in a.m. Multiple wounds -Related to his previous surgery in December -Slow healing likely related to his vascular disease -Would recommend follow-up as an outpatient with vascular surgery after discharge -Patient agreeable CKD stage IIIb -Current serum creatinine is 2. 6 2 -Remains in baseline range -Monitor clinically -Avoid nephrotoxins as able AAA with repair -Repair at [facility] [place] in December 2021 -Continue tobacco cessation -Continue aspirin, metoprolol, rosuvastatin Hypertension -Continue metoprolol 12.5 mg p.o. twice daily Hyperlipidemia -Continue Crestor 5 mg daily Vitamin D deficiency -Continue cholecalciferol Bilateral carotid artery stenosis -No bruit on auscultation during exam -Continue medical therapy as noted above History of peptic ulcer disease -No current issues -Patient is not on PPI at baseline DVT prophylaxis -heparin 5000 TID -SCD's Code Status DNR CCA- no intubation Charges/Coding Visit Charges Inpatient E&M: 86243 Subs Hosp L2
[2022-03-03] MEDS: Fluticasone 0.05% 1 SPRAY NASAL.SRY 2 SPRAY NASAL (21:17)
[2022-03-03] MEDS: Atorvastatin Calcium 10 MG Tablet PO (21:19)
[2022-03-04] VITALS (10 sets, daily range): BP systolic 110–139; BP diastolic 80–89; PULSE 71–96; RESP 18–20; TEMP 36.4–36.7; O2SAT 2–99
[2022-03-04 05:29] LABS: Absolute Lymphocyte Count 0.84 X10^3/uL (0.83-4.51); Absolute Neutrophil Count 3.8 X10^3/uL (2.0-7.7); Hematocrit 30.1 % (40-54); Hemoglobin 8.8 g/dL (13.0-16.5); Lymphocyte # 0.84 X10^3/ul (0.83-4.51); Lymphocyte % 17.2 % (19-41); Mean Corp Hgb Conc 29.2 g/dL (32-36); Mean Corpuscular Hgb 29.4 pg (27.0-32.0); Mean Corpuscular Volume 100.7 fL (80-94); Mean Platelet Vol. 10.2 fl (6.2-12.0); Monocyte# 0.17 X10^3/uL; Monocyte% 3.5 % (0-10); NRBC Flagged by Analyzer 0 % (0-5); Neutrophil # 3.84 X10^3/uL (2.7-7.7); Neutrophil % 78.5 % (47-70); Platelet Count 104 K/mm3 (150-450); RBC Distribution Width SD 63.7 fl (35.1-43.9); Red Blood Count 2.99 M/mm3 (4.6-6.2); White Blood Count 4.9 K/mm3 (4.4-11.0)
[2022-03-04 06:06] LABS: Anion Gap 7 (5-15); BUN 58 mg/dL (7-18); BUN/Creat Ratio 24.2 RATIO (10-20); Calcium,Total 8.1 mg/dL (8.5-10.1); Chloride 104 mmol/L (98-107); EST Glomerular Filtration Rate 28 mL/min (>60); Est Glom Filt Rate - Afr Amer 34 mL/min (>60); Estimated Creatinine Clearance 25.11 ml/min; Glucose 223 mg/dL (74-106); Potassium 5.2 mmol/L (3.5-5.1); Sodium Level 139 mmol/L (136-145)
[2022-03-04] MEDS: 0.9% Saline Lock 10 ML Syringe IV ×3 (06:25→15:59)
[2022-03-04] MEDS: Heparin Injection (Vial) 5,000 UNIT/ML VIAL 5000 UNIT SC ×2 (06:26→15:56)
[2022-03-04] MEDS: Ipratropium/Albuterol Sulfate 3 ML AMPUL.NEB INHALATION ×2 (08:11→11:47)
[2022-03-04] MEDS: Aspirin E.C. 81 MG Tablet PO (09:48)
[2022-03-04] MEDS: Azithromycin 250 MG Tablet 500 MG PO (09:49)
[2022-03-04] MEDS: Docusate Sodium 100 MG Capsule PO (09:49)
[2022-03-04] MEDS: Cholecalciferol (VIT D3) 25 MCG TABLET (1,000 UNITS) PO (09:49)
[2022-03-04] MEDS: Metoprolol Tartrate 25 MG Tablet 12.5 MG PO (09:50)
[2022-03-04] MEDS: guaiFENesin 1,200 MG Tablet 1200 MG PO (09:50)
[2022-03-04 10:40] LABS: Pathologist Review Reviewed
--- NOTE | 2022-03-04 14:23 | DS.PCM_ITS ---
Providers Date of Admission: 03/02/22 Date of Discharge: 03/04/22 Primary Care Physician: Dr. Ezekiel Carrasco MD Reason For Visit: CAP RLL Diagnosis Discharge Diagnosis (1) Acute respiratory failure with hypoxia: Status: Acute Code(s): J96.01 - Acute respiratory failure with hypoxia (2) Pneumonia: Status: Acute Code(s): J18.9 - Pneumonia, unspecified organism (3) Pleural effusion: Status: Acute Code(s): J90 - Pleural effusion, not elsewhere classified (4) COPD exacerbation: Status: Chronic Code(s): J44.1 - Chronic obstructive pulmonary disease with (acute) exacerbation Medications at Discharge Home Medications albuterol sulfate 90 mcg/actuation aerosol inhaler 2 puff inhalation Q4H PRN Shortness Of Breath 03/14/19 acetaminophen 325 mg tablet 650 mg PO Q4H PRN Pain 01/06/22 docusate sodium 100 mg capsule (Colace) 100 mg PO BID constipation 01/06/22 albuterol sulfate 2.5 mg/3 mL (0.083 %) solution for nebulization 2.5 mg inhalation 4X/DAY PRN Shortness Of Breath 03/02/22 aspirin 81 mg tablet,delayed release 81 mg PO DAILY heart health 03/02/22 cholecalciferol (vitamin D3) 25 mcg (1,000 unit) tablet 25 mcg PO DAILY supplement 03/02/22 fluticasone propionate 50 mcg/actuation nasal spray,suspension 2 spray intr anasal QHS congestion 03/02/22 metoprolol tartrate 25 mg tablet 12.5 mg PO BID blood pressure 03/02/22 rosuvastatin 5 mg tablet (Crestor) 5 mg PO DAILY cholesterol 03/02/22 fluticasone 250 mcg-salmeterol 50 mcg/dose blistr powdr for inhalation (Advair Diskus) 1 inh inhalation BID #60 ea 03/04/22 guaifenesin 1,200 mg tablet, extended release 12 hr (Mucus Relief ER) 1,200 mg PO BID #0 tabs 03/04/22 levofloxacin 750 mg tablet 750 mg PO Q48H #5 tabs 03/04/22 prednisone 10 mg tablet 10 mg PO DAILY #40 tabs 03/04/22 Hospital Course Operations None Procedures EKG and - (Chest x-ray) Summary of Care Provided Minutes Spent on Discharge: 36 Hospital Course: Mr. Ivory is a 72-year-old white male who presented to the emergency department was prehospital on 03/02/2022 with a chief complaint of shortness of breath. Patient reported he did had associated symptoms of cough, subjective fever and chills as well as white sputum production. He reported he is having symptoms for about 2 weeks. He saw his primary care physician and was treated with steroids and oral antibiotics completing them on the day of presentation. He was reevaluated in his primary care office the day of presentation and was noted to be hypoxic and was sent to the emergency department. He has strong history of tobacco abuse but quit in December when he had a AAA repair. He stated he had been smoking since he was about 12-years old. His daughter indicated that he has not previously qualified for oxygen however his daughter indicated that he not been tested. Upon presentation to the emergency department he had temperature of 98 degrees, heart rate of 85, blood pressure of 137/86 and his oxygen saturation was 84% on room air.? Respiratory rates have been anywhere between 18 and 28 during his ER course.? Given his hypoxemia on presentation he was placed on nasal cannula 3 L and oxygen saturations improved to 95 to 97%.? His CBC showed some mild stable anemia with a hemoglobin of 12 as well as thrombocytopenia with a platelet count of 117,000-this appears chronic as well.? No left shift was present.? His chemistry panel showed an elevated BUN/creatinine at his baseline being 44 and 2.24 respectively.? Initial troponin was 56.? Chest x-ray was performed and showed a right lower lobe infiltrate with a small right pleural effusion.? I did compare this to previous CAT scan that was performed and there is no abnormality on the CAT scan in the right lower lobe from December.? An EKG was also performed and showed some nonspecific T wave flattening in the lateral leads but was otherwise unremarkable with normal intervals and normal sinus rhythm. In the emergency department he was treated with aerosols, methylprednisolone 125 mg x 1 and started on ceftriaxone and azithromycin. He was admitted to the medical floor and placed on IV Solu-Medrol 40 every 8, placed on ceftriaxone and azithromycin as well as scheduled and as needed nebulizer treatments. He was encouraged to use incentive spirometry and Pep therapy and started on Mucinex. His white count normalized at the time of discharge. Strep pneumo and Legionella antigens were negative, COVID and flu were negative, sputum culture was obtained. His sputum culture was unremarkable at the time of discharge. However final results were still pending. He clinically improved dramatically reporting that he was percent better on the day of discharge. We did an ambulatory pulse ox and him prior to discharge to see if he would qualify for oxygen and he did require oxygen at 2 L during rest and 3 L with exertion. We arranged for home oxygen and he was very pleased with th is. We also sent him home on a prednisone taper, Levaquin to complete his antibiotics and instructed him to continue Mucinex. I also started an Advair inhaler and request that he follow-up with pulmonary medicine as he has not had any pulmonary follow-up previously. With regards to wounds he had on his lower extremities and hands he has a very slow healer and appears to have poor blood flow. I suspect he has significant vascular disease and I gave him information to follow-up with vascular surgery after discharge. He was discharged home in stable condition on 03/04/2022. Discharge diagnoses: Acute hypoxic respiratory failure Right lower lobe pneumonia Acute exacerbation of COPD Small right pleural effusion Chronic anemia Chronic thrombocytopenia Multiple wounds with suspected vascular disease CKD stage IIIb AAA with previous repair Hypertension Hyperlipidemia Vitamin D deficiency Bilateral carotid artery stenosis History of peptic ulcer disease Physical Exam Narrative Patient sitting up in a chair at the bedside states he feels much better and indicates 85% improvement since admission. He is anxious to go home. Const alert, oriented x3 and no apparent distress Constitutional Narrative: Older white male sitting up in chair at the bedside, watching television, thin, appears older than stated age, very comfortable and currently on 2 L supplemental nasal cannula, nontoxic General Appearance: cooperative, comfortable, well kempt and well developed Orientation / Consciousness: awake, oriented to person, oriented to place and oriented to time Exam Limitations: no limitations HEENT normocephalic, head/scalp atraumatic and moist oral mucous membranes HEENT Narrative: Moderate hearing loss, dentition is poor, Mallampati is 2, temporal wasting Eyes PERRL, EOMs intact bilaterally and conjunctivae normal Eyes Narrative: No scleral icterus Neck no lymphadenopathy, supple, no JVD and no carotid bruits Resp normal respiratory effort, no retractions, no use of accessory muscles and clear to auscultation bilaterally Resp Narrative: Diffusely diminished but clear this morning, no tachypnea or conversational dyspnea Auscultation: Negative for crackles, rhonchi or wheezes Cardio regular rate, regular rhythm, S1 normal heart sound, S2 normal heart sound, no rub, no gallops and no clicks; Negative for no JVD Cardio Narrative: 2 out of 6 systolic murmur GI normal to inspection, nondistended, normoactive bowel sounds, soft to palpation, non-tender, non-distended and hepatosplenomegaly Extremity no clubbing, cyanosis or edema; Negative for normal to inspection Extremity Narrative: Decreased lean muscle mass Skin Skin Narrative: Scattered wounds noticed on bilateral lower extremities and bilateral upper extr emities-family reports these are much improved from previous, no signs of infection Neuro oriented x3, CN's II-XII intact bilaterally, moves all extremities and no focal motor deficits Neuro Narrative: Mild generalized weakness-proximal greater than distal Speech: speech normal Psych affect normal Psych Narrative: Very pleasant, appropriately interactive Weight / BMI Weight Weight: 69.853 kg Body Mass Index (BMI) 24.8 ABG / Lab / Microbiology Data Result Diagrams: 03/04/22 04:43 03/04/22 04:43 Laboratory: Laboratory Results - last 24 hr 03/03/22 05:36: Diff Path Review Reviewed 03/04/22 04:43: WBC 4.9, RBC 2.99 L, Hgb 8.8 L, Hct 30.1 L, MCV 100.7 H, MCH 29.4, MCHC 29.2 L, RDW Std Deviation 63.7 H, RDW Coeff of Manjit 17.0 H, Plt Count 104 L, MPV 10.2, Immature Gran % (Auto) 0.800, Neut % (Auto) 78.5 H, Lymph % (Auto) 17.2 L, [place] % (Auto) 3.5, Eos % (Auto) 0.0, Baso % (Auto) 0.0, Absolute Neuts (auto) 3.8, Absolute Lymphs (auto) 0.84, Nucleated RBC % 0 03/04/22 04:43: Sodium 139, Potassium 5.2 H, Chloride 104, Carbon Dioxide 28.0, Anion Gap 7, BUN 58 H, Creatinine 2.40 H, Estim Creat Clear Calc 25.11, Est GFR (MDRD) Af Amer 34 L, Est GFR (MDRD) Non-Af 28 L, BUN/Creatinine Ratio 24.2 H, G lucose 223 H, Calcium 8.1 L Microbiology: Microbiology 03/03/22 03:10 Sputum, Expectorated/Coughed Gram Stain - Final 03/03/22 03:59 Urine, Random Legionella Antigen - Final 03/03/22 03:59 Urine, Random Streptococcus pneumoniae Antigen (M - Final 03/02/22 16:40 Mucosa - Nasopharyngeal Respiratory Panel (PCR) - Final 03/02/22 10:15 Nasal Secretion SARS-CoV-2 & FLU Antigen (Rapid) - Final Meaningful Use Info Meaningful Use Diagnoses (Choose all that apply): None applicable Discharge Plan Admission Admit Date/Time: 03/02/22 12:26 Primary Reason for Your Visit: Shortness of breath Attending Provider: Beatris Banks Primary Care Provider: Ezekiel Carrasco Instructions Additional Instructions / Restrictions: 1. Please call the below physicians tomorrow to make follow-up appointments Discharge Orders/Prescriptions Prescriptions: New Mucus Relief ER 1,200 mg Tablet Extended Release 12hr 1,200 mg PO BID Qty: 0 0RF levofloxacin 750 mg tablet 750 mg PO Q48H Qty: 5 0RF Rx Instructions: Take every other day over the next 10 days fluticasone propion-salmeterol [Advair Diskus] 250-50 mcg/dose blister with device 1 inh inhalation BID Qty: 60 0RF prednisone 10 mg tablet 10 mg PO DAILY Qty: 40 0RF Rx Instructions: 4 tablets x 4 days, 3 tablets x 4 days, 2 tablets x 4 days, 1 tablet x 4 days Continued albuterol sulfate 90 mcg/actuation HFA aerosol inhaler 2 puff INHALATION Q4H PRN (Reason: Shortness Of Breath) acetaminophen 325 mg tablet 650 mg PO Q4H PRN (Reason: Pain) docusate sodium [Colace] 100 mg capsule 100 mg PO BID albuterol sulfate 2.5 mg /3 mL (0.083 %) solution for nebulization 2.5 mg inhalation 4X/DAY PRN (Reason: Shortness Of Breath) fluticasone propionate 50 mcg/actuation spray,suspension 2 spray INTRANASAL QHS cholecalciferol (vitamin D3) 25 mcg (1,000 unit) Tablet 25 mcg PO DAILY aspirin 81 mg tablet,delayed release (DR/EC) 81 mg PO DAILY rosuvastatin [Crestor] 5 mg tablet 5 mg PO DAILY metoprolol tartrate 25 mg tablet 12.5 mg PO BID Referrals / Follow Up: Noe Suarez MD [Med Staff - Active Staff] - Within 1 Month Ezekiel Carrasco MD [Primary Care Provider] - Within 2 Weeks Kwame Alex MD [Med Staff - Active Staff] - Within 2 Weeks Disposition Disposition (needs filled in before D/C Order can be placed): Home, Self Care Charges/Coding Visit Charges Inpatient E&M: 06622 Disch Hosp >30min
--- NOTE | 2022-03-04 14:23 | CASEMGMT ---
ANGELA MEHTA updated that patient will need home oxygen at discharge. ANGELA MEHTA received script for home oxygen and sent to [facility] [place], [place], patient's preferred provider. ANGELA MEHTA called Emily at [facility] [place], [place] and arranged for portable tank to be delivered to patient's room. ANGELA MEHTA in to room to discharge discharge planning. ANGELA MEHTA discussed HHC with patient, patient declining HHC at this time. ANGELA MEHTA updated patient that should he reconsider HHC, he can follow-up with PCP. Patient voiced understanding. A list of HHC providers including quality and resource use data and consistent with the patient?s preferred geographical region, medical needs, and insurance network were provided from the [facility] Guide for future reference. Patient inquired about pulse ox for at home and states he can afford to purchase his own, ANGELA MEHTA educated that he can purchase one at any retail pharmacy, [facility], or on [employer]. Patient voiced understanding. Patient had no further questions or concerns at this time.
== END 2022-03-04 16:25 | disposition home or self-care (01) | DRG 177 ==
LOC: ED 13:17 → PCU 16:03
PROVIDERS: Admitting Provider Internal Medicine; Emergency Provider Emergency Medicine; PCP Family Medicine; Visit Provider Internal Medicine
DX: J15.6 Pneumonia due to other Gram-negative bacteria (principal); J96.01 Acute respiratory failure with hypoxia; J44.0 Chronic obstructive pulmonary disease with (acute) lower respiratory infection; J44.1 Chronic obstructive pulmonary disease with (acute) exacerbation; J90 Pleural effusion, not elsewhere classified; N18.32 Chronic kidney disease, stage 3b; D69.6 Thrombocytopenia, unspecified; I65.23 Occlusion and stenosis of bilateral carotid arteries; I12.9 Hypertensive chronic kidney disease with stage 1 through stage 4 chronic kidney disease, or unspecified chronic kidney disease; E55.9 Vitamin D deficiency, unspecified; I25.10 Atherosclerotic heart disease of native coronary artery without angina pectoris; E78.5 Hyperlipidemia, unspecified; D63.1 Anemia in chronic kidney disease; Z66 Do not resuscitate; Z95.1 Presence of aortocoronary bypass graft; Z95.4 Presence of other heart-valve replacement; Z99.81 Dependence on supplemental oxygen; Z79.82 Long term (current) use of aspirin; Z79.899 Other long term (current) drug therapy; Z87.11 Personal history of peptic ulcer disease; Z87.891 Personal history of nicotine dependence
CPT/HCPCS: 36415; 71045; 80048; 80053; 83735; 84100; 84443; 84484; 85025; 87070; 87077; 87186; 87205; 87428; 87449; 87633; 87641; 93005; 94640; 94667; 94668; 97162; 97166; 97802; 99252; 99285; 99406; J7050; A4216; G0463; J0696

== ENCOUNTER → 2022-03-10 | Outpatient (CLI) | payer MEDICARE, SELFPAY ==
[2022-03-10 18:02] LABS: Absolute Lymphocyte Count 1.66 X10^3/uL (0.83-4.51); Absolute Neutrophil Count 4.1 X10^3/uL (2.0-7.7); Eosinophil# 0.02 X10^3/uL; Eosinophils% 0.3 % (0-5); Hematocrit 32.1 % (40-54); Hemoglobin 9.3 g/dL (13.0-16.5); Lymphocyte # 1.66 X10^3/ul (0.83-4.51); Lymphocyte % 26.3 % (19-41); Mean Corpuscular Hgb 28.7 pg (27.0-32.0); Mean Corpuscular Volume 99.1 fL (80-94); Mean Platelet Vol. 9.9 fl (6.2-12.0); Monocyte# 0.49 X10^3/uL; Monocyte% 7.8 % (0-10); NRBC Flagged by Analyzer 0 % (0-5); Neutrophil # 4.11 X10^3/uL (2.7-7.7); Neutrophil % 65.1 % (47-70); Platelet Count 109 K/mm3 (150-450); RBC Distribution Width CV 15.4 % (11.6-14.6); RBC Distribution Width SD 56.9 fl (35.1-43.9); Red Blood Count 3.24 M/mm3 (4.6-6.2); White Blood Count 6.3 K/mm3 (4.4-11.0)
[2022-03-10 18:48] LABS: ALB/GLOB Ratio 0.8 RATIO (0.9-2.4); AST(SGOT) 36 U/L (15-37); Alanine Aminotransfer ALT/SGPT 44 U/L (16-61); Albumin, Serum 2.8 g/dL (3.2-5.0); Alkaline Phosphatase 144 U/L (45-117); Anion Gap 6 (5-15); BUN 46 mg/dL (7-18); BUN/Creat Ratio 31.5 RATIO (10-20); Calcium,Total 8.1 mg/dL (8.5-10.1); Chloride 102 mmol/L (98-107); Creatinine, Serum 1.46 mg/dL (0.70-1.30); EST Glomerular Filtration Rate 50 mL/min (>60); Est Glom Filt Rate - Afr Amer 61 mL/min (>60); Globulin 3.4 g/dL (2.2-4.2); Glucose 133 mg/dL (74-106); Potassium 4.5 mmol/L (3.5-5.1); Protein, Total 6.2 g/dL (6.4-8.2); Sodium Level 141 mmol/L (136-145)
== END | disposition home or self-care (01) ==
LOC: MFPLAB 17:06
PROVIDERS: PCP Family Medicine; Referring Provider Family Medicine; Visit Provider Family Medicine
DX: D64.9 Anemia, unspecified (principal)
CPT/HCPCS: 80053; 85025

== ENCOUNTER → 2022-03-18 | Outpatient (CLI) | payer MEDICARE, SELFPAY ==
--- NOTE | 2022-03-18 15:50 | RAD_ITS ---
INDICATION: CHF EXAMINATION/TECHNIQUE: X-RAY - XR Chest 2 Views COMPARISON: None. FINDINGS: The lungs are clear. Sternal cerclage wires and vascular clips are present from a prior sternotomy and coronary artery bypass graft procedure (CABG). Tortuous and calcified thoracic aorta. The heart is borderline enlarged. Trace right pleural effusion. No pneumothorax. Degenerative changes of the thoracic spine. RAD/Chest PA and Lateral IMPRESSION: Trace right pleural effusion. Electronically Signed: Andrés Luna MD at 18:00 EST ,
[2022-03-18 18:07] LABS: Absolute Lymphocyte Count 1.42 X10^3/uL (0.83-4.51); Absolute Neutrophil Count 4.8 X10^3/uL (2.0-7.7); Hematocrit 31.2 % (40-54); Hemoglobin 9.1 g/dL (13.0-16.5); Lymphocyte # 1.42 X10^3/ul (0.83-4.51); Lymphocyte % 21.5 % (19-41); Mean Corp Hgb Conc 29.2 g/dL (32-36); Mean Corpuscular Hgb 28.5 pg (27.0-32.0); Mean Corpuscular Volume 97.8 fL (80-94); Monocyte# 0.33 X10^3/uL; NRBC Flagged by Analyzer 0 % (0-5); Neutrophil # 4.82 X10^3/uL (2.7-7.7); Neutrophil % 72.7 % (47-70); Platelet Count 131 K/mm3 (150-450); RBC Distribution Width CV 14.6 % (11.6-14.6); RBC Distribution Width SD 53.3 fl (35.1-43.9); Red Blood Count 3.19 M/mm3 (4.6-6.2); White Blood Count 6.6 K/mm3 (4.4-11.0)
[2022-03-18 18:40] LABS: ALB/GLOB Ratio 0.8 RATIO (0.9-2.4); AST(SGOT) 22 U/L (15-37); Alanine Aminotransfer ALT/SGPT 39 U/L (16-61); Albumin, Serum 2.7 g/dL (3.2-5.0); Alkaline Phosphatase 114 U/L (45-117); Anion Gap 9 (5-15); BUN 47 mg/dL (7-18); BUN/Creat Ratio 30.7 RATIO (10-20); Calcium,Total 8.2 mg/dL (8.5-10.1); Chloride 98 mmol/L (98-107); Creatinine, Serum 1.53 mg/dL (0.70-1.30); EST Glomerular Filtration Rate 48 mL/min (>60); Est Glom Filt Rate - Afr Amer 58 mL/min (>60); Globulin 3.6 g/dL (2.2-4.2); Glucose 333 mg/dL (74-106); Potassium 3.7 mmol/L (3.5-5.1); Protein, Total 6.3 g/dL (6.4-8.2); Sodium Level 140 mmol/L (136-145)
== END | disposition home or self-care (01) ==
LOC: MTRAD 15:50
PROVIDERS: PCP Family Medicine; Referring Provider Family Medicine; Visit Provider Family Medicine
DX: I50.9 Heart failure, unspecified (principal); R60.0 Localized edema
CPT/HCPCS: 36415; 71046; 80053; 83880; 85025

== ENCOUNTER 2022-03-22 16:30 | Emergency (ER) | payer MEDICARE, SELFPAY ==
[2022-03-22 16:32] VITALS: BP 145/87; PULSE 93; RESP 20; TEMP 36.6; O2SAT 95; BMI 26.4
--- NOTE | 2022-03-22 17:01 | EDS_ITS ---
HPI History of Present Illness Chief Complaint: General Illness Narrative Narrative: 72-year-old male with history of CHF presenting for evaluation after being seen by his primary on Tuesday. Apparently his BNP was elevated. His chest x-ray showed some findings of CHF. Patient states he was told to double his Lasix by his primary care office. He states this was 10 mg of Lasix to 20 mg of Lasix. He states that Dr. Farrar's office called him and told him to stop the Lasix and to start spironolactone and only do this for the weekend. The patient followed up with Dr. Carrasco's office today. At this point he was referred to the emergency room because he has lower extremity edema. He does not have any respiratory symptoms that are new. He is on his baseline 2 L of oxygen. He is denying chest pain. [facility] Medical History Abdominal aortic aneurysm (AAA) Anemia Arthritis Atherosclerotic heart disease of [place] coronary artery without angina pectoris Bilateral inguinal hernia Carotid stenosis, bilateral Chronic kidney insufficiency Cough Essential hypertension Hyperlipidemia Intention tremor Left carotid bruit Nonrheumatic aortic (valve) stenosis Pleural effusion PUD (peptic ulcer disease) Secondary pulmonary arterial hypertension Stage 3b chronic kidney disease (CKD) Subcutaneous mass of back Thrombocytopenia Tobacco dependence Home Medications albuterol sulfate 90 mcg/actuation aerosol inhaler 2 puff inhalation Q4H PRN Shortness Of Breath 03/14/19 [History Last Taken 03/02/22] acetaminophen 325 mg tablet 650 mg PO Q4H PRN Pain 01/06/22 [History Last Taken 02/16/22] docusate sodium 100 mg capsule (Colace) 100 mg PO BID constipation 01/06/22 [History Last Taken 03/02/22] albuterol sulfate 2.5 mg/3 mL (0.083 %) solution for nebulization 2.5 mg inhalation 4X/DAY PRN Shortness Of Breath 03/02/22 [History Last Taken 03/02/22] aspirin 81 mg tablet,delayed release 81 mg PO DAILY heart health 03/02/22 [History Last Taken 03/02/22] cholecalciferol (vitamin D3) 25 mcg (1,000 unit) tablet 25 mcg PO DAILY supplement 03/02/22 [History Last Taken 03/02/22] fluticasone propionate 50 mcg/actuation nasal spray,suspension 2 spray intranasal QHS congestion 03/02/22 [History Last Taken Unknown] metoprolol tartrate 25 mg tablet 12.5 mg PO BID blood pressure 03/02/22 [History Last Taken 03/02/22] rosuvastatin 5 mg tablet (Crestor) 5 mg PO DAILY cholesterol 03/02/22 [History Last Taken 03/02/22] fluticasone 250 mcg-salmeterol 50 mcg/dose blistr powdr for inhalation (Advair Diskus) 1 inh inhalation BID #60 ea 03/04/22 [Rx Last Taken Unknown] guaifenesin 1,200 mg tablet, extended release 12 hr (Mucus Relief ER) 1,200 mg PO BID #0 tabs 03/04/22 [Rx Last Taken Unknown] levofloxacin 750 mg tablet 750 mg PO Q48H #5 tabs 03/04/22 [Rx Last Taken Unknown] prednisone 10 mg tablet 10 mg PO DAILY #40 tabs 03/04/22 [Rx Last Taken Unknown] furosemide 40 mg tablet 40 mg PO QAM 03/19/22 [History Last Taken Unknown] spironolactone 25 mg tablet 25 mg PO DAILY #90 tabs 03/19/22 [Rx Last Taken Unknown] Allergy/AdvReac Type Severity Reaction Status Date / Time No Known Allergies Allergy Verified 03/22/22 16:34 Family History Sister Asthma Mother Arthritis Diabetes Brother Cancer Unsure what kind- just a lump on his neck Surgical History 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) History of aortic valve replacement (02/12/19) History of left heart catheterization (11/27/18) No history of previous surgery S/P AAA repair Social History Smoking Status: Former smoker quit date: 12/28/21 pack-years: 58 quit status: has quit before alcohol intake: never substance use type: does not use caffeine: Yes Type: coffee Number of servings: 3 what type of physical activity do you participate in: other frequency: 3-4 times per week seatbelt use: always ROS ROS ED Constitutional Constitutional ED: Denies chills, fever(s) or sweats Eyes Eyes: Denies blurry vision or change in vision ENT ENT ED: Denies ear pain or sore throat Cardiovascular Cardiovascular: Denies chest pain, palpitations or racing heartbeat Respiratory/Chest Respiratory/Chest: Denies cough, dyspnea or sputum Gastrointestinal Gastrointestinal: Denies abdominal pain, constipation, diarrhea, nausea or vomiting Genitourinary Genitourinary ED: Denies dysuria, hematuria or urinary frequency Musculoskeletal Musculoskeletal: Denies arthralgias, myalgias or neck pain Integumentary Reports other Details: lower extremity edema bilaterally with chronic stasis changes ; Denies abscess Neurologic Neurologic: Denies headache(s), paresthesias or weakness Psychiatric Psychiatric: Denies anxiety, depression, suicidal ideation or suicidal thoughts Endocrine Endocrinology: Denies polydipsia or polyuria EXAM Physical Exam Const Vital Signs: 03/22/22 16:32 Temperature 97.8 F Temperature Source Temporal Pulse Rate 93 Respiratory Rate 20 H Blood Pressure 145/87 H Blood Pressure Mean 106 Pulse Ox 95 Oxygen Delivery Method Nasal Cannula Oxygen Flow Rate (L/min) 2 Positive well nourished General Appearance ED: NAD; Negative for pallor HEENT Reports moist mucous membranes and dry mucous membranes trauma Mouth ED: Yes dry mucous membranes Mouth: dry mucous membranes Eyes PERRL and EOMs intact bilaterally Chest Wall inspection of chest normal and palpation of chest normal Resp normal respiratory effort and clear to auscultation bilaterally Cardio regular rate and regular rhythm GI normal to inspection, nondistended, normoactive bowel sounds Neuro oriented x3 and CN's II-XII intact bilaterally Sensorium / Orientation: alert Psych mental status grossly normal Skin Skin Narrative: lower extremity edema bilaterally with chronic stasis changes General Skin Exam: Negative for jaundice or pallor MDM MDM MDM Narrative Medical decision making narrative: Blood work obtained on Tuesday. His renal function is at baseline. Hemoglobin macular stable. BNP was elevated over 1999. Chest x-ray showed a trace pleural effusion. I spoke with Dr. Farrar who recommended the patient take spironolactone 25 mg p.o. daily as well as Lasix 40 mg p.o. daily and his office would call and set up an appointment. Patient is on his baseline oxygen. He is already had blood work within last couple of days. He is amenable to this plan. He is discharged home in stable condition. Impression: 1. History of CHF 2. Lower extremity Lab Data Attestation: I reviewed the patient's lab results. Discharge Plan Triage Chief Complaint: General Illness ED Provider: Corey Brennan Dx/Rx/DC Orders Instructions: ED Heart Failure, Congestive (CHF) Prescriptions: No Action albuterol sulfate 90 mcg/actuation HFA aerosol inhaler 2 puff INHALATION Q4H PRN (Reason: Shortness Of Breath) acetaminophen 325 mg tablet 650 mg PO Q4H PRN (Reason: Pain) docusate sodium [Colace] 100 mg capsule 100 mg PO BID albuterol sulfate 2.5 mg /3 mL (0.083 %) solution for nebulization 2.5 mg inhalation 4X/DAY PRN (Reason: Shortness Of Breath) fluticasone propionate 50 mcg/actuation spray,suspension 2 spray INTRANASAL QHS cholecalciferol (vitamin D3) 25 mcg (1,000 unit) Tablet 25 mcg PO DAILY aspirin 81 mg tablet,delayed release (DR/EC) 81 mg PO DAILY rosuvastatin [Crestor] 5 mg tablet 5 mg PO DAILY metoprolol tartrate 25 mg tablet 12.5 mg PO BID Mucus Relief ER 1,200 mg Tablet Extended Release 12hr 1,200 mg PO BID Qty: 0 0RF levofloxacin 750 mg tablet 750 mg PO Q48H Qty: 5 0RF Rx Instructions: Take every other day over the next 10 days fluticasone propion-salmeterol [Advair Diskus] 250-50 mcg/dose blister with device 1 inh inhalation BID Qty: 60 0RF prednisone 10 mg tablet 10 mg PO DAILY Qty: 40 0RF Rx Instructions: 4 tablets x 4 days, 3 tablets x 4 days, 2 tablets x 4 days, 1 tablet x 4 days furosemide 40 mg tablet 40 mg PO QAM spironolactone 25 mg tablet 25 mg PO DAILY Qty: 90 3RF Primary Care Provider: Ezekiel Carrasco Referrals: aRheem Farrar MD [Med Staff - Active Staff] - As soon as possible Ezekiel Carrasco MD [Primary Care Provider] - Activity Restrictions/Additional Instructions: Per Dr. Farrar continue Lasix 40 mg daily as well as your spironolactone 25 mg daily. His office will reach out to you for follow-up Disposition Disposition: Home, Self Care
== END 2022-03-22 17:19 | disposition home or self-care (01) ==
PROVIDERS: Emergency Provider Student in an Organized Health Care Education/Training Program; PCP Family Medicine; Visit Provider Student in an Organized Health Care Education/Training Program
DX: I50.9 Heart failure, unspecified (principal); N18.32 Chronic kidney disease, stage 3b; M79.89 Other specified soft tissue disorders; I25.10 Atherosclerotic heart disease of native coronary artery without angina pectoris; Z87.891 Personal history of nicotine dependence; Z95.1 Presence of aortocoronary bypass graft
CPT/HCPCS: 99283

== ENCOUNTER → 2022-03-29 | Outpatient (CLI) | payer MEDICARE, SELFPAY ==
[2022-03-29 15:53] LABS: Anion Gap 5 (5-15); BUN 52 mg/dL (7-18); BUN/Creat Ratio 19.3 RATIO (10-20); Calcium,Total 8.7 mg/dL (8.5-10.1); Chloride 98 mmol/L (98-107); Creatinine, Serum 2.69 mg/dL (0.70-1.30); EST Glomerular Filtration Rate 25 mL/min (>60); Est Glom Filt Rate - Afr Amer 30 mL/min (>60); Glucose 101 mg/dL (74-106); Potassium 5.3 mmol/L (3.5-5.1); Sodium Level 135 mmol/L (136-145)
== END | disposition home or self-care (01) ==
LOC: LAB 13:58
PROVIDERS: PCP Family Medicine; Referring Provider Nurse Practitioner Family; Visit Provider Nurse Practitioner Family
DX: N28.9 Disorder of kidney and ureter, unspecified (principal)
CPT/HCPCS: 36415; 80048

== ENCOUNTER → 2022-03-31 | Outpatient (CLI) | payer MEDICARE, SELFPAY ==
--- NOTE | 2022-03-31 13:00 | VDLE_ITS ---
Reason For Study: Pain RIGHT LEFT CFV is compressible, spontaneous, phasic, GSV is normal. competent and demonstrates normal CFV is compressible, spontaneous, phasic, augmentation. competent, and demonstrates normal FV is compressible, spontaneous, phasic, augmentation. competent and demonstrates normal FV is compressible, spontaneous, phasic, augmentation. competent and demonstrates normal POP V is compressible, spontaneous, phasic, augmentation. competent and demonstrates normal POP V is compressible, spontaneous, phasic, augmentation. competent and demonstrates normal T/P Trunk is compressible. augmentation. PTV is compressible. T/P Trunk is compressible. RT PerV is compressible. PTV is compressible. SFJ is competent and measures 0.38cm x 0.37 LT PerV is compressible. cm. SFJ is competent and measures 0.34cm x 0.34 GSV proximal thigh measures 0.37cm x 0.38 cm. cm. GSV at knee measures 0.38cm x 0.43 cm. GSV proximal thigh measures 0.33cm x 0.40 cm. GSV above knee is competent. GSV at knee measures 0.23cm x 0.21 cm. GSV below knee is INCOMPETENT for greater GSV is competent throughout. than 0.5 seconds. SSV proximal calf is competent and measures SSV proximal calf is competent and measures 0.45cm x 0.43 cm. 0.32cm x 0.37 cm. Procedure This is a venous duplex using B-mode, color flow and spectral Doppler. Exam performed in department. A preliminary report was called and/or faxed to [facility]. VL/Venous Duplex US - Ghanshyam Extrem Interpretation Summary Deep veins of the bilateral lower extremities are patent and compressible segme ntally. There is no evidence of bilateral lower extremity deep vein thrombosis. The bilateral great saphenous veins appear patent and compressible segmentally Positive for reflux in the right below knee great saphenous vein Ordering Physician: Tonia Jenkins Referring Physician: Andrés Flynn Performed By: Lillie Subramanian, LEE, RVT
--- NOTE | 2022-03-31 13:03 | ECHOD_ITS ---
Reason For Study: CHF Procedure This was a 2D Doppler, Color Flow transthoracic echocardiogram. Exam performed in department. Left Ventricle Normal LV size. Mild concentric left ventricular hypertrophy. The estimated ejection fraction is 53 %. No regional wall motion abnormalities noted. Right Ventricle Normal RV size. Normal systolic function. Atria The left atrium is mildly enlarged. Normal right atrium. Mitral Valve Normal mitral valve. Mild (1+) eccentric mitral valve insufficiency. Tricuspid Valve Normal tricuspid valve. Mild tricuspid valve insufficiency. Pulmonary artery systolic pressure is 50 mmHg. Aortic Valve Peak aortic valve gradient 49 mmHg. Mean aortic valve gradient 30 mmHg. Mild aortic stenosis. Bioprosthetic aortic valve. Pulmonic Valve Normal pulmonic valve. Trivial pulmonic valve insufficiency. Great Vessels Normal aortic root. Pericardium/Pleural No pericardial effusion. MMode/2D Measurements & Calculations LVIDd: 5.9 cm IVSd: 1.2 cm LVOT diam: 2.0 cm LVIDs: 4.9 cm LVPWd: 1.2 cm LVOT area: 3.0 cm2 RVDd: 3.7 cm FS: 17.5 % LA dimension: 4.5 cm LAV(MOD-bp): 75.3 ml LA A4 area: 24.6 cm2 LAV(MOD-bp) Indexed: 42.9 ml/m2 LAV(MOD-sp2): 66.2 ml LAV(MOD-sp4): 76.5 ml RA A4 area: 17.7 cm2 Time Measurements MV dec time: 0.17 sec Doppler Measurements & Calculations MV E max pasha: 88.7 cm/sec Lat Peak E' Pasha: 9.8 cm/sec Med Peak E' Pasha: 6.5 cm/sec MV A max pasha: 76.2 cm/sec E/E' lat: 9.0 E/E' med: 13.7 MV E/A: 1.2 MV V2 max: 110.2 cm/sec MV P1/2t max pasha: 112.5 cm/sec Ao V2 max: 350.8 cm/sec MV max P.9 mmHg MV P1/2t: 70.8 msec Ao max P.4 mmHg MV V2 mean: 62.7 cm/sec MV dec slope: 465.1 cm/sec2 Ao V2 mean: 259.9 cm/sec MV mean P.8 mmHg Ao mean P.4 mmHg MV V2 VTI: 34.6 cm MVA(P1/2t): 3.1 cm2 Ao V2 VTI: 78.5 cm MVA(VTI): 2.5 cm2 AV (velocity ratio): 0.36 JAVID(I,D): 1.1 cm2 JAVID(V,D): 1.1 cm2 LV V1 max: 128.5 cm/sec MR max pasha: 572.1 cm/sec SV(LVOT): 86.1 ml LV V1 max P.6 mmHg MR max P.9 mmHg LV V1 mean P.2 mmHg MR mean pasha: 432.0 cm/sec LV V1 mean: 97.6 cm/sec MR mean P.3 mmHg LV V1 VTI: 28.6 cm MR VTI: 184.0 cm TR max pasha: 343.9 cm/sec TR max P.3 mmHg ECHO/Echo Complete Interpretation Summary Normal LV size. Mild concentric left ventricular hypertrophy. The estimated ejection fraction is 53 %. The left atrium is mildly enlarged. Pulmonary artery systolic pressure is 50 mmHg. Mean aortic valve gradient 30 mmHg. Bioprosthetic aortic valve. Ordering Physician: Tc Subramanian Referring Physician: Andrés Carrasco Performed By: Con Mccarty RCS
== END | disposition home or self-care (01) ==
PROVIDERS: PCP Family Medicine; Referring Provider Nurse Practitioner Family; Visit Provider Physician Assistant
DX: R60.0 Localized edema (principal); M79.606 Pain in leg, unspecified; I35.0 Nonrheumatic aortic (valve) stenosis; I25.10 Atherosclerotic heart disease of native coronary artery without angina pectoris; Z95.2 Presence of prosthetic heart valve; I10 Essential (primary) hypertension
CPT/HCPCS: 93306; 93970

== ENCOUNTER → 2022-04-02 | Outpatient (CLI) | payer MEDICARE, SELFPAY ==
[2022-04-02 10:48] LABS: Anion Gap 9 (5-15); BUN 40 mg/dL (7-18); Calcium,Total 8.9 mg/dL (8.5-10.1); Chloride 97 mmol/L (98-107); Creatinine, Serum 1.82 mg/dL (0.70-1.30); EST Glomerular Filtration Rate 39 mL/min (>60); Est Glom Filt Rate - Afr Amer 47 mL/min (>60); Glucose 206 mg/dL (74-106); Potassium 4.2 mmol/L (3.5-5.1); Sodium Level 135 mmol/L (136-145)
== END | disposition home or self-care (01) ==
LOC: LAB 09:34
PROVIDERS: PCP Family Medicine; Visit Provider Nurse Practitioner Family
DX: N28.9 Disorder of kidney and ureter, unspecified (principal)
CPT/HCPCS: 36415; 80048

== ENCOUNTER → 2022-04-06 | Outpatient (CLI) | payer MEDICARE, SELFPAY ==
--- NOTE | 2022-04-06 16:01 | RAD_ITS ---
STUDY: X-RAY - RIGHT FOOT CLINICAL: Male, 72 years old. FOOT PAIN TECHNIQUE: 3 view(s) of the foot. COMPARISON: None. FINDINGS: Normal talus, and tarsal bones. Tiny calcaneal spur Normal visualized subtalar, talonavicular, calcaneocuboid, tarsal and tarsometatarsal articulations. There is a very tiny bony density lateral to the base of the fifth metatarsal of uncertain etiology possibly representing tiny cortical avulsion. Clinical correlation is recommended Normal metatarsophalangeal joint of the great toe. Normal tibial and fibular sesamoid bones. Normal interphalangeal joint of the great toe. Normal phalanges of the great toe. Normal second through fifth metatarsophalangeal joints. Normal interphalangeal joints and phalanges of the lesser toes. The soft tissue structures are unremarkable. RAD/Foot min 3 Views IMPRESSION: Question tiny cortical avulsion fracture of the base of fifth metatarsal. Clinical correlation is recommended Otherwise no significant abnormality Electronically Signed: Juan Ron MD at 21:48 EST ,
== END | disposition home or self-care (01) ==
LOC: MTRAD 16:01
PROVIDERS: PCP Family Medicine; Referring Provider Family Medicine; Visit Provider Family Medicine
DX: M79.671 Pain in right foot (principal)
CPT/HCPCS: 73630

== ENCOUNTER → 2022-05-03 | Outpatient (CLI) | payer MEDICARE, SELFPAY ==
--- NOTE | 2022-05-03 16:23 | PFTCOMP ---
COMPLETE PULMONARY FUNCTION TEST INTERPRETATION Brief HPI: Patient is a 72-year-old male, currently under the care of Carmina Tee, who presents to [facility] for complete pulmonary function tests secondary to diagnosis of COPD. Respiratory therapist reports good effort and reproducible results. Interpretation: Forced expiration spirometry shows a moderately severe large airways obstructive ventilatory defect with an FEV1 of 54% predicted. There is a significant bronchodilator response in FVC by strict ATS criteria. Spirograms are of good quality and plateau slowly, indicating slowly emptying areas of the lungs. The respiratory flow volume loop shows decreased expiratory flow rates at all lung volumes consistent with airway obstruction. Lung volumes by body plethysmography show an elevated total lung capacity at 7.58 L, 137% predicted. FRC and RV are elevated out of proportion. Lung volume measurements are consistent with hyperinflation and air-trapping. Diffusion capacity by carbon monoxide is decreased at 69% predicted. The airway resistance is elevated. No previous pulmonary function tests were available for review. Impression: Partially reversible moderately severe large airways obstructive ventilatory defect with a symmetric reduction in diffusion capacity, resulting in air trapping with hyperinflation, in a pattern consistent with COPD
== END | disposition home or self-care (01) ==
LOC: PSN 10:29
PROVIDERS: PCP Family Medicine; Referring Provider Nurse Practitioner Acute Care; Visit Provider Nurse Practitioner Acute Care
DX: J44.9 Chronic obstructive pulmonary disease, unspecified (principal)
CPT/HCPCS: 94060; 94726; 94729

== ENCOUNTER 2022-05-07 10:30 | Outpatient (RCR) | payer MEDICARE, SELFPAY ==
--- NOTE | 2022-04-09 21:08 | PCM.WC.HP ---
History of Present Illness Date of Service: 04/09/22 Chief Complaint: Left wrist wound Multiple bilateral lower extremity wounds History of Wound: Patient is new to [facility] but known to me from the vascular surgery clinic. His medical history is significant for CABG, AAA rupture and repair, aortic stenosis s/p valve replacement, diabetes (not well controlled at this time per PCP note) December 2021 patient had rupture of juxtarenal AAA which was emergently repaired at [facility]. Patient was understandably quite ill following this and hospitalized for some time during which he had significant BLE edema at which point the wounds began to appear. They were overall stable for some time, and then he was hospitalized a few weeks ago for pneumonia, had increased BLE edema again, and wounds worsened/new ones appeared. Since then, he feels they are improved in appearance. The wrist wound appeared during the initial hospitalization for AAA, at that time he describes it initially as a hematoma which eventually developed into this chronic wound. Last week, he had significant erythema and pain in his RLE and was started on antibiotics. Venous duplex was also obtained to r/o DVT and this was negative. Erythema did improve with antibiotics. Patient still has pain in bilateral feet, worse right than left; bilateral feet/ankles are intermittently hypersensitive to touch. He notes continued mild BLE edema. He does not currently wear compression. [facility] Medical History Abdominal aortic aneurysm (AAA) Anemia Arthritis Atherosclerotic heart disease of [place] coronary artery without angina pectoris Bilateral inguinal hernia Carotid stenosis, bilateral Chronic kidney insufficiency Cough Essential hypertension Hyperlipidemia Intention tremor Left carotid bruit Nonrheumatic aortic (valve) stenosis Pleural effusion PUD (peptic ulcer disease) Secondary pulmonary arterial hypertension Stage 3b chronic kidney disease (CKD) Subcutaneous mass of back Thrombocytopenia Tobacco dependence Home Medications albuterol sulfate 90 mcg/actuation aerosol inhaler 2 puff inhalation Q4H PRN Shortness Of Breath 03/14/19 [History Last Taken 03/02/22] acetaminophen 325 mg tablet 650 mg PO Q4H PRN Pain 01/06/22 [History Last Taken 02/16/22] albuterol sulfate 2.5 mg/3 mL (0.083 %) solution for nebulization 2.5 mg inhalation 4X/DAY PRN Shortness Of Breath 03/02/22 [History Last Taken 03/02/22] aspirin 81 mg tablet,delayed release 81 mg PO DAILY heart health 03/02/22 [History Last Taken 03/02/22] cholecalciferol (vitamin D3) 25 mcg (1,000 unit) tablet 25 mcg PO DAILY supplement 03/02/22 [History Last Taken 03/02/22] fluticasone propionate 50 mcg/actuation nasal spray,suspension 2 spray intranasal QHS congestion 03/02/22 [History Last Taken Unknown] rosuvastatin 5 mg tablet (Crestor) 5 mg PO DAILY cholesterol 03/02/22 [History Last Taken 03/02/22] spironolactone 25 mg tablet 25 mg PO DAILY #90 tabs 03/19/22 [Rx Last Taken Unknown] furosemide 40 mg tablet 40 mg PO BID #180 tabs 03/23/22 [Rx Last Taken Unknown] Allergy/AdvReac Type Severity Reaction Status Date / Time No Known Allergies Allergy Verified 03/30/22 08:27 Family History Sister Asthma Mother Arthritis Diabetes Brother Cancer Unsure what kind- just a lump on his neck Surgical History 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) History of aortic valve replacement (02/12/19) History of left heart catheterization (11/27/18) No history of previous surgery S/P AAA repair Social History Smoking Status: Former smoker quit date: 12/28/21 pack-years: 58 quit status: has quit before alcohol intake: never substance use type: does not use caffeine: Yes Type: coffee Number of servings: 3 what type of physical activity do you participate in: other frequency: 3-4 times per week seatbelt use: always ROS Constitutional Constitutional: Reports weakness; Denies change in weight, chills, difficulty sleeping, fatigue, fever(s), frequent falls, lethargy or night sweats Eyes Eyes: Denies blindness, blurry vision, change in vision, eye pain or ptosis ENT HEENT: Denies abnormal hearing, change in voice, hearing loss, loss taste/smell or vertigo Cardiovascular Cardiovascular: Reports dyspnea on exertion; Denies abdominal pain, chest pain, claudication, cold extremities, cyanosis, diaphoresis, dyspnea, fatigue, hypertension, irregular heart rhythm, leg edema, leg ulcers, orthopnea, palpitations, radiating jaw, neck or arm pain or syncope Respiratory/Chest Respiratory/Chest: Denies cough, dyspnea, hemoptysis, nail bed cyanosis, kirstie-oral cyanosis, portable oxygen @ home, productive cough or wheezing Gastrointestinal Gastrointestinal: Denies abdominal pain, change in bowel habits, change in stool character, coffee ground emesis, melena, rectal bleeding or weight changes Genitourinary Genitourinary: Denies abdominal discomfort, burning urination, difficulty urinating or flank pain Musculoskeletal Musculoskeletal: Reports joint pain; Denies abnormal gait, difficulty walking, muscle cramps, muscle weakness or numbness Integumentary Integumentary: Denies change in pigmentation, changing lesions, erythema, lesions, rash, skin ulcer, unusual bruising or wounds Neurologic Neurologic: Denies abnormal gait, abnormal movements, abnormal speech, behavior changes, frequent falls, syncope, tingling or weakness Psychiatric Psychiatric: Denies behavioral changes, cognitive impairment or depression Endocrine Endocrinology: Denies change in body appearance, cold intolerance, excessive sweating, flushing, heat intolerance, palpitations, polydipsia, polyphagia or polyuria Hematologic/Lymphatic Hematologic/Lymphatic: Denies anemia, easy bleeding, easy bruising or lymphadenopathy Allergic/Immunologic Allergic/Immunologic: Denies seasonal rhinorrhea, throat swelling, tongue swelling, hives or asthma Physical Exam Const alert, oriented x3 and no apparent distress General Appearance: cooperative, comfortable and well developed HEENT normocephalic, head/scalp atraumatic, hearing grossly normal bilaterally, external ears normal and external nose normal Eyes EOMs intact bilaterally General Eye: normal appearance of both eyes Neck full ROM General: normal visual inspection and trachea midline Resp normal respiratory effort, no retractions and no use of accessory muscles Effort and Inspection: able to speak in complete sentences and symmetric chest movement Cardio regular rate and regular rhythm Peripheral Pulses: brachial pulses present and radial pulses present Extremity Extremity Narrative: Mild bilateral lower extremity edema, right worse than left. Patient had significant sensitivity to light touch, especially on R foot. Skin Wounds: wounds noted Wound Narrative: Multiple bilateral lower ankle/foot wounds with significant adherent slough/scabs, most revealed bases with pink granulation tissue and further slough. Good bleeding. No significant erythema, foul odor, drainage noted. Left wrist wound with pink granulation tissue at base, moderate slough. Debridement Note Debridement Note Wound debrided: R retail presentation specialist lower leg Laterality: Right Type of Debridement: Excisional debridement Anesthesia Used: 5% Lidocaine Gel and Cetacaine Depth: Down to and including healthy tissue and in the subcutaneous layer Percentage of wound debrided: 100 Instrument Used: 5mm curette, #10 blade and Forceps Tissue Removed: adherent slough/scab, devitalized tissue Severity: Fat Layer Exposed Amount of bleeding with debridement: Mild Bleeding Controlled with: Pressure Patient tolerated procedure: Patient tolerated procedure well Post-Debridement Measurements and Additional Note: Post-Debridement Measurements/Treatment - Nurse 1 - General Ulcer Assessment Start: 04/09/22 13:29 Freq: Status: Active Protocol: JC Activity Type Activity Date Activity User E-sign Co-sign Detail Recorded Client Recorded Date Recorded By Document 04/09/22 13:30 LYNETTE [id number] 04/09/22 13:42 LYNETTE 04/09/22 13:30 WC - Today's Visit Information Type of service Initial Visit Arrival Mode Ambulatory Patient Identification Verified (Name & Yes ) Patient Requires Transmission-Based No Precautions Safety Precautions NA History Since Last Visit- (Skip if this is Patient's initial visit) Left Footwear Regular Shoe Right Footwear Regular Shoe Pain Scale: 0-10 Numeric Is Patient Pain Free? No - Nurse 1 - General Ulcer Measurement Start: 04/09/22 13:29 Freq: Status: Active Protocol: Activity Type Activity Date Activity User E-sign Co-sign Detail Recorded Client Recorded Date Recorded By Document 04/09/22 13:30 CO [id number] 04/09/22 13:42 CO 04/09/22 13:30 Wound Center Nurse 1 #3 R Post -Combined with other wound No -Current Size (cm) - Length 8 -Current Size (cm) - Width 2 -Current Size (cm) - Depth 0.1 -Total Square Cm 16 -Date of Last Picture (Recall this 04/09/22 field) -Photo Taken Yes -Tunneling No -Undermining/Tunneling No -Circular Undermining No -Change in Wound Grade/Stage No -Exudate Amt None Present -Wound Margin Distinct, Outline Attached -Granulation Amt None Present (0 %) -Granulation Quality N/A -Slough/Fibrin Yes -Necrosis Amt Large (67-100%) -Necrotic Tissue Type Eschar -Structure Exposed N/A -Texture (Kirstie-wound Skin Appearance) No Abnormality, Assessed -Moisture (Kirstie-wound Skin Appearance) Assessed,Dry/ Scaly -Color (Kirstie-wound Skin Appearance) No Abnormality, Assessed -Temperature (Kirstie-wound Skin No Abnormality Appearance) (Pt Warm) -Tenderness on Palpation (Kirstie-wound No Skin Appearance) -Ulcer Cleansing Rinsed/ Irrigated with Saline -Foul Odor after Cleansing No -Anesthetic Used 4% Lidocaine Solution,5% Lidocaine Gel -Wound Comment(s) scabbed #2 R ankle cluster -Combined with other wound No -Current Size (cm) - Length 6.5 -Current Size (cm) - Width 5 -Current Size (cm) - Depth 0.1 -Total Square Cm 32.5 -Date of Last Picture (Recall this 04/09/22 field) -Tunneling No -Undermining/Tunneling No -Circular Undermining No -Change in Wound Grade/Stage No -Exudate Amt None Present -Granulation Amt None Present (0 %) -Granulation Quality N/A -Slough/Fibrin Yes -Necrosis Amt Large (67-100%) -Necrotic Tissue Type Eschar -Structure Exposed N/A -Texture (Kirstie-wound Skin Appearance) No Abnormality, Assessed -Moisture (Kirstie-wound Skin Appearance) Assessed,Dry/ Scaly -Color (Kirstie-wound Skin Appearance) No Abnormality, Assessed -Temperature (Kirstie-wound Skin No Abnormality Appearance) (Pt Warm) -Tenderness on Palpation (Kirstie-wound No Skin Appearance) -Ulcer Cleansing Rinsed/ Irrigated with Saline -Foul Odor after Cleansing No -Anesthetic Used 4% Lidocaine Solution,5% Lidocaine Gel -Wound Comment(s) scabbed #1 R lateral foot -Combined with other wound No -Current Size (cm) - Length 2.2 -Current Size (cm) - Width 4.5 -Current Size (cm) - Depth 0.1 -Total Square Cm 9.90 -Date of Last Picture (Recall this 04/09/22 field) -Photo Taken Yes -Tunneling No -Undermining/Tunneling No -Circular Undermining No -Change in Wound Grade/Stage No -Exudate Amt None Present -Wound Margin Distinct, Outline Attached -Granulation Amt None Present (0 %) -Granulation Quality N/A -Slough/Fibrin No -Necrosis Amt Large (67-100%) -Necrotic Tissue Type Eschar -Structure Exposed N/A -Texture (Kirstie-wound Skin Appearance) No Abnormality, Assessed -Moisture (Kirstie-wound Skin Appearance) No Abnormality, Assessed -Color (Kirstie-wound Skin Appearance) No Abnormality, Assessed -Temperature (Kirstie-wound Skin No Abnormality Appearance) (Pt Warm) -Tenderness on Palpation (Kirstie-wound No Skin Appearance) -Ulcer Cleansing Rinsed/ Irrigated with Saline -Foul Odor after Cleansing No -Anesthetic Used 4% Lidocaine Solution,5% Lidocaine Gel -Wound Comment(s) scabbed #5 L wrist -Combined with other wound No -Current Size (cm) - Length 1.1 -Current Size (cm) - Width 3.2 -Current Size (cm) - Depth 0.1 -Total Square Cm 3.52 -Photo Taken Yes -Tunneling No -Undermining/Tunneling No -Circular Undermining No -Change in Wound Grade/Stage No -Exudate Amt None Present -Wound Margin Distinct, Outline Attached -Granulation Amt None Present (0 %) -Slough/Fibrin Yes -Necrosis Amt Large (67-100%) -Necrotic Tissue Type Adherent Slough -Structure Exposed N/A -Texture (Kirstie-wound Skin Appearance) No Abnormality, Assessed -Moisture (Kirstie-wound Skin Appearance) Assessed,Dry/ Scaly -Color (Kirstie-wound Skin Appearance) No Abnormality, Assessed -Temperature (Kirstie-wound Skin No Abnormality Appearance) (Pt Warm) -Tenderness on Palpation (Kirstie-wound No Skin Appearance) -Ulcer Cleansing Rinsed/ Irrigated with Saline -Foul Odor after Cleansing No -Anesthetic Used 4% Lidocaine Solution,5% Lidocaine Gel -Wound Comment(s) scabbed #4 L ankle -Combined with other wound No -Current Size (cm) - Length 4 -Current Size (cm) - Width 4.8 -Current Size (cm) - Depth 0.1 -Total Square Cm 19.2 -Photo Taken Yes -Tunneling No -Undermining/Tunneling No -Circular Undermining No -Change in Wound Grade/Stage No -Exudate Amt None Present -Wound Margin Distinct, Outline Attached -Granulation Amt None Present (0 %) -Granulation Quality N/A -Slough/Fibrin Yes -Necrosis Amt Large (67-100%) -Necrotic Tissue Type Eschar -Structure Exposed N/A -Texture (Kirstie-wound Skin Appearance) Assessed -Moisture (Kirstie-wound Skin Appearance) Assessed,Dry/ Scaly -Color (Kirstie-wound Skin Appearance) No Abnormality, Not Assessed -Temperature (Kirstie-wound Skin No Abnormality Appearance) (Pt Warm) -Tenderness on Palpation (Kirstie-wound No Skin Appearance) -Ulcer Cleansing Rinsed/ Irrigated with Saline -Foul Odor after Cleansing No -Anesthetic Used 4% Lidocaine Solution,5% Lidocaine Gel -Wound Comment(s) scabbed Lower Limb Edema Present No Right Calf (cm) 30 Right Ankle (cm) 20.5 Left Calf (cm) 30.5 Left Ankle (cm) 19.4 WC - Nurse 2 - General Ulcer CM Notes Start: 04/09/22 13:29 Freq: Status: Active Protocol: Activity Type Activity Date Activity User E-sign Co-sign Detail Recorded Client Recorded Date Recorded By Document 04/09/22 15:12 PL [id number] 04/09/22 15:29 PL 04/09/22 15:12 Wound Center Nurse 2 #5 L wrist -Time 13:35 -Correct Patient Yes -Correct Side, Site, Position Yes -Correct Procedure Yes -Procedure Performed Yes -Type of Procedure Debridement -Clinical Debridement Subcutaneous -Tissue Removed Subcutaneous -Post Debridement (cm) - Length 1.2 -Post Debridement (cm) - Width 3.8 -Post Debridement (cm) - Depth 0.7 -Total Square (Post) (cm) 4.56 -Area of Debridement (cm) - Length 1.2 -Area of Debridement (cm) - Width 3.8 -Total Square (Area) (cm) 4.56 -Tunneling No -Undermining/Tunneling No -Circular Undermining No -Wound/Ulcer Outcome Not Healed -Ulcer Cleansing Rinsed/ Irrigated with Saline -Foul Odor after Cleansing No -Bioengineered Tissue No -Bleeding Controlled with Pressure -Treatment Response Procedure Tolerated Well -Debridement - Subq, 1st 20sq cm Yes -Debridement, SubQ, ea addt'l 20sq cm 2 or part thereof #4 L ankle -Time 13:35 -Correct Patient Yes -Correct Side, Site, Position Yes -Correct Procedure Yes -Procedure Performed Yes -Type of Procedure Debridement -Clinical Debridement Subcutaneous -Tissue Removed Subcutaneous -Post Debridement (cm) - Length 4.8 -Post Debridement (cm) - Width 1.7 -Post Debridement (cm) - Depth 0.2 -Total Square (Post) (cm) 8.16 -Area of Debridement (cm) - Length 4.8 -Area of Debridement (cm) - Width 1.7 -Total Square (Area) (cm) 8.16 -Tunneling No -Undermining/Tunneling No -Circular Undermining No -Wound/Ulcer Outcome Not Healed -Ulcer Cleansing Rinsed/ Irrigated with Saline -Foul Odor after Cleansing No -Bioengineered Tissue No -Debridement - Subq, 1st 20sq cm No Pain Scale: 0-10 Numeric Is Patient Pain Free? Yes - Nurse 3 - General Ulcer D/C NN Start: 04/09/22 13:29 Freq: Status: Active Protocol: Activity Type Activity Date Activity User E-sign Co-sign Detail Recorded Client Recorded Date Recorded By Document 04/09/22 15:05 KS [id number] 04/09/22 15:16 KS 04/09/22 15:05 Wound Care Center Nurse 3 #3 R Post -Ulcer Cleansing Soap and Water -Primary Dressing Covered/Secured with Dry Gauze & Roll Gauze, Secured with Tape #2 R ankle cluster -Ulcer Cleansing Soap and Water -Primary Dressing Covered/Secured with Dry Gauze & Roll Gauze, Secured with Tape #1 R lateral foot -Ulcer Cleansing Soap and Water -Primary Dressing Covered/Secured with Dry Gauze & Roll Gauze, Secured with Tape #5 L wrist -Primary Dressing Applied Promogran Mahnaz Matter -Primary Dressing Covered/Secured with Dry Gauze & Roll Gauze, Secured with Tape -Promogran Mahnaz Matter 1 #4 L ankle -Ulcer Cleansing Soap and Water -Other Dressing santyl ordered. hydrogel placed today on wounds. -Primary Dressing Covered/Secured with Dry Gauze & Roll Gauze, Secured with Tape Right -Tubular Bandage Single Layer -Size of Tubigrip Used Size D -Size D ($) 1 Left -Tubular Bandage Single Layer -Size of Tubigrip Used Size D -Size D ($) 1 Pain Scale: 0-10 Numeric Is Patient Pain Free? Yes Additional Wound Wound debrided: R ankle cluster Laterality: Right Type of Debridement: Excisional debridement Anesthesia Used: 5% Lidocaine Gel and Cetacaine Depth: Down to and including healthy tissue and in the subcutaneous layer Percentage of wound debrided: 100 Instrument Used: 5mm curette and #10 blade Tissue Removed: adherent slough/scab, devitalized tissue Severity: Fat Layer Exposed Amount of bleeding with debridement: Mild Bleeding Controlled with: Pressure Patient tolerated procedure: Patient tolerated procedure well Additional Wound Wound debrided: R lateral foot Laterality: Right Type of Debridement: Excisional debridement Anesthesia Used: 5% Lidocaine Gel and Cetacaine Depth: Down to and including healthy tissue and in the subcutaneous layer Percentage of wound debrided: 100 Instrument Used: 5mm curette, #10 blade and Forceps Tissue Removed: adherent slough/scab, devitalized tissue Severity: Fat Layer Exposed Amount of bleeding with debridement: Mild Bleeding Controlled with: Pressure Patient tolerated procedure: Patient tolerated procedure well Additional Wound Wound debrided: L wrist Laterality: Left Type of Debridement: Excisional debridement Anesthesia Used: 5% Lidocaine Gel and Cetacaine Depth: Down to and including healthy tissue and in the subcutaneous layer Percentage of wound debrided: 100 Instrument Used: 5mm curette and #10 blade Tissue Removed: adherent slough/scab, devitalized tissue Severity: Fat Layer Exposed Amount of bleeding with debridement: Mild Bleeding Controlled with: Pressure Patient tolerated procedure: Patient tolerated procedure well Additional Wound Wound debrided: L ankle Laterality: Left Type of Debridement: Excisional debridement Anesthesia Used: 5% Lidocaine Gel and Cetacaine Depth: Down to and including healthy tissue and in the subcutaneous layer Percentage of wound debrided: 100 Instrument Used: 5mm curette, #10 blade and Forceps Tissue Removed: adherent slough/scab, devitalized tissue Severity: Fat Layer Exposed Amount of bleeding with debridement: Mild Bleeding Controlled with: Pressure Charges/Coding Wound Center CF Procedures [id number]: [id number] RMVL DEVITAL TIS 20 CM/< Multi Select Codes Wound Center CF Procedures [id number]: [id number] RMVL DEVITAL TIS 20 CM/< Assessment/Plan Assessment/Plan (1) 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 Left wrist wound seems to be secondary to trauma/IV placement from his hospitalization. Patient had significant sensitivity to even light touch, had difficulty tolerating debridement at times. Debrided as many of the wounds as allowed by time and patient's tolerance. Will apply santyl to all lower extremity wounds to address significant amount of adherent slough that remains, hope that next week will be easier/more tolerable to debride. Cover with DSD/kerlix and apply tubigrips for compression. Will apply promogran mahnaz to L wrist wound, cover with DSD. Change dressings daily or more often as needed to keep clean and dry. Advise to adjust diet to reduce sugar/carbs and increase protein. Work towards better blood sugar control. Elevate legs when resting. Return to clinic in 1 week or sooner as needed.
[2022-04-16 14:11] VITALS: BP 155/78; PULSE 58; RESP 18; TEMP 36.2
--- NOTE | 2022-04-16 16:05 | PCM.WC.PN ---
History of Present Illness Date of Service: 04/16/22 Chief Complaint: Left wrist wound Multiple bilateral lower extremity wounds History of Wound: Patient is new to [facility] but known to me from the vascular surgery clinic. 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 Patient was understandably quite ill following this and hospitalized for some time during which he had significant BLE edema at which point the wounds began to appear. They were overall stable for some time, and then he was hospitalized a few weeks ago for pneumonia, had increased BLE edema again, and wounds worsened/new ones appeared. Since then, he feels they are improved in appearance. The wrist wound appeared during the initial hospitalization for AAA, at that time he describes it initially as a hematoma which eventually developed into this chronic wound. Last week, he had significant erythema and pain in his RLE and was started on antibiotics. Venous duplex was also obtained to r/o DVT and this was negative. Erythema did improve with antibiotics. Patient still has pain in bilateral feet, worse right than left; bilateral feet/ankles are intermittently hypersensitive to touch. He notes continued mild BLE edema. He does not currently wear compression. Subjective Subjective Patient just picked up Santyl prescription earlier today. Has been washing lower extremity wounds with soap and water daily, patting dry, and keeping covered with DSD. He has been applying mahnaz and DSD to L wrist wound as directed. He finds the L wrist difficult to wrap and the dressing falls off easily. Otherwise, he is doing very well changing the dressings himself at home. He denies any new/worsening pain or erythema, F/C, N/V. Objective Data Objective Data Vital Signs: Vital Signs Temp Pulse Resp BP O2 Del Method O2 Flow Rate 97.2 F L 58 L 18 155/78 H Nasal Cannula 2 04/16/22 14:11 04/16/22 14:11 04/16/22 14:11 04/16/22 14:11 04/16/22 14:11 04/16/22 14:11 Oxygen Flow Rate (L/min) 2 Oxygen Delivery Method Nasal Cannula Charges/Coding Wound Center CF Procedures [id number]: [id number] RMVL DEVITAL TIS 20 CM/< Multi Select Codes Wound Center CF Procedures [id number]: [id number] RMVL DEVITAL TIS 20 CM/< Physical Exam Const alert, oriented x3 and no apparent distress General Appearance: cooperative, comfortable and well developed HEENT normocephalic, head/scalp atraumatic, hearing grossly normal bilaterally, external ears normal and external nose normal Eyes EOMs intact bilaterally General Eye: normal appearance of both eyes Neck full ROM General: normal visual inspection and trachea midline Resp normal respiratory effort, no retractions and no use of accessory muscles Effort and Inspection: able to speak in complete sentences and symmetric chest movement Cardio regular rate and regular rhythm Peripheral Pulses: brachial pulses present and radial pulses present Extremity Extremity Narrative: Mild bilateral lower extremity edema, right worse than left. Patient had significant sensitivity to light touch, especially on R foot. Skin Wounds: wounds noted Wound Narrative: Multiple bilateral lower ankle/foot wounds with significant slough but wound base with pink granulation tissue. Good bleeding. No significant erythema, foul odor, drainage noted. Left wrist wound with pink granulation tissue at base, moderate slough. 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: R group segment consultant lower leg Laterality: Right Type of Debridement: Excisional debridement Anesthesia Used: 5% Lidocaine Gel and Cetacaine Depth: Down to and including healthy tissue and in the subcutaneous layer Percentage of wound debrided: 100 Instrument Used: 5mm curette Tissue Removed: adherent slough/scab, devitalized tissue Severity: Fat Layer Exposed Amount of bleeding with debridement: Mild Bleeding Controlled with: Pressure Patient tolerated procedure: Patient tolerated procedure well Post-Debridement Measurements and Additional Note: Post-Debridement Measurements/Treatment - Nurse 1 - General Ulcer Assessment Start: 04/09/22 13:29 Freq: Status: Active Protocol: JC Activity Type Activity Date Activity User E-sign Co-sign Detail Recorded Client Recorded Date Recorded By Document 04/09/22 13:30 LYNETTE [id number] 04/09/22 13:42 AK Document 04/16/22 14:11 MS [id number] 04/16/22 14:21 AK 04/09/22 04/16/22 13:30 14:11 - Today's Visit Information Type of service Initial Visit Follow-up Visit (Physician/PSYCHIATRIC REGISTERED NURSE ) Arrival Mode Ambulatory Ambulatory Transfer Assistance None Patient Identification Verified (Name & Yes Yes ) Patient Requires Transmission-Based No No Precautions Safety Precautions NA Finger Stick Blood Sugar(mg/dl) (if 149 indicated): Blood Sugar Stated by Patient Vital Signs Temperature (97.8 F-99.1 F) 97.2 F L Temperature Source Temporal Pulse Rate (60-100) 58 L Pulse Location Monitor Respiratory Rate (12-18) 18 Respiratory rate source Observation Oxygen Delivery Method Nasal Cannula O2 L/MIN (L/min) 2 Blood Pressure (90/60-120/80) 155/78 H Blood Pressure Mean (mm Hg) 103 Source Monitor Position Sitting Blood Pressure Location Right Arm History Since Last Visit- (Skip if this is Patient's initial visit) Have you changed medications since your No last visit? Any new allergies or adverse reactions No Had a fall/change in ADL's that may No increase risk of falls Signs or symptoms of abuse and/or No neglect since last visit Have you been in the hospital since your No last visit? Has dressing in place as prescribed Yes Has compression in place as prescribed No Has offloadiing in place as prescribed No Experienced any changes in pain level or No management Left Footwear Regular Shoe Right Footwear Regular Shoe Pain Scale: 0-10 Numeric Is Patient Pain Free? No Yes WC - Nurse 1 - General Ulcer Measurement Start: 04/09/22 13:29 Freq: Status: Active Protocol: Activity Type Activity Date Activity User E-sign Co-sign Detail Recorded Client Recorded Date Recorded By Document 04/09/22 13:30 MS [id number] 04/09/22 13:42 MS Document 04/16/22 14:11 MS [id number] 04/16/22 14:21 MS 04/09/22 04/16/22 13:30 14:11 Wound Center Nurse 1 #1 R lateral foot -Combined with other wound No -Current Size (cm) - Length 2.2 -Current Size (cm) - Width 4.5 -Current Size (cm) - Depth 0.1 -Total Square Cm 9.90 -Date of Last Picture (Recall this 04/09/22 field) -Photo Taken Yes -Tunneling No -Undermining/Tunneling No -Circular Undermining No -Change in Wound Grade/Stage No -Exudate Amt None Present -Wound Margin Distinct, Outline Attached -Granulation Amt None Present (0 %) -Granulation Quality N/A -Slough/Fibrin No -Necrosis Amt Large (67-100%) -Necrotic Tissue Type Eschar -Structure Exposed N/A -Texture (Kirstie-wound Skin Appearance) No Abnormality, Assessed -Moisture (Kirstie-wound Skin Appearance) No Abnormality, Assessed -Color (Kirstie-wound Skin Appearance) No Abnormality, Assessed -Temperature (Kirstie-wound Skin No Abnormality Appearance) (Pt Warm) -Tenderness on Palpation (Kirstie-wound No Skin Appearance) -Ulcer Cleansing Rinsed/ Irrigated with Saline -Foul Odor after Cleansing No -Anesthetic Used 4% Lidocaine Solution,5% Lidocaine Gel -Wound Comment(s) scabbed #5 L wrist -Combined with other wound No No -Current Size (cm) - Length 1.1 0.5 -Current Size (cm) - Width 3.2 2.1 -Current Size (cm) - Depth 0.1 0.3 -Total Square Cm 3.52 1.05 -Photo Taken Yes Yes -Tunneling No No -Undermining/Tunneling No No -Circular Undermining No No -Change in Wound Grade/Stage No -Exudate Amt None Present Medium -Exudate Type Serosanguineous -Wound Margin Distinct, Distinct, Outline Outline Attached Attached -Granulation Amt None Present (0 Medium (34-66%) %) -Granulation Quality [place] -Slough/Fibrin Yes Yes -Necrosis Amt Large (67-100%) Large (67-100%) -Necrotic Tissue Type Adherent Slough Adherent Slough -Structure Exposed N/A N/A -Texture (Kirstie-wound Skin Appearance) No Abnormality, Assessed Assessed -Moisture (Kirstie-wound Skin Appearance) Assessed,Dry/ Dry/Scaly Scaly -Color (Kirstie-wound Skin Appearance) No Abnormality, Assessed Assessed -Temperature (Kirstie-wound Skin No Abnormality No Abnormality Appearance) (Pt Warm) (Pt Warm) -Tenderness on Palpation (Kirstie-wound No No Skin Appearance) -Ulcer Cleansing Rinsed/ Wound Cleanser Irrigated with Saline -Foul Odor after Cleansing No No -Anesthetic Used 4% Lidocaine 5% Lidocaine Solution,5% Gel Lidocaine Gel -Wound Comment(s) scabbed #4 L ankle -Combined with other wound No No -Current Size (cm) - Length 4 2 -Current Size (cm) - Width 4.8 1.1 -Current Size (cm) - Depth 0.1 0.1 -Total Square Cm 19.2 2.2 -Photo Taken Yes Yes -Tunneling No No -Undermining/Tunneling No No -Circular Undermining No No -Change in Wound Grade/Stage No -Exudate Amt None Present Medium -Exudate Type Serosanguineous -Wound Margin Distinct, Distinct, Outline Outline Attached Attached -Granulation Amt None Present (0 Medium (34-66%) %) -Granulation Quality N/A [place] -Slough/Fibrin Yes Yes -Necrosis Amt Large (67-100%) Medium (34-66%) -Necrotic Tissue Type Eschar Adherent Slough -Structure Exposed N/A N/A -Texture (Kirstie-wound Skin Appearance) Assessed Assessed -Moisture (Kirstie-wound Skin Appearance) Assessed,Dry/ Assessed,Dry/ Scaly Scaly -Color (Kirstie-wound Skin Appearance) No Abnormality, Assessed Not Assessed -Temperature (Kirstie-wound Skin No Abnormality No Abnormality Appearance) (Pt Warm) (Pt Warm) -Tenderness on Palpation (Kirstie-wound No No Skin Appearance) -Ulcer Cleansing Rinsed/ Wound Cleanser Irrigated with Saline -Foul Odor after Cleansing No No -Anesthetic Used 4% Lidocaine 5% Lidocaine Solution,5% Gel Lidocaine Gel -Wound Comment(s) scabbed #3 R Post -Combined with other wound No No -Current Size (cm) - Length 8 1.8 -Current Size (cm) - Width 2 1 -Current Size (cm) - Depth 0.1 0.1 -Total Square Cm 16 1.8 -Date of Last Picture (Recall this 04/09/22 field) -Photo Taken Yes Yes -Tunneling No No -Undermining/Tunneling No No -Circular Undermining No No -Change in Wound Grade/Stage No -Exudate Amt None Present Medium -Exudate Type Serosanguineous -Wound Margin Distinct, Distinct, Outline Outline Attached Attached -Granulation Amt None Present (0 Medium (34-66%) %) -Granulation Quality N/A [place] -Slough/Fibrin Yes Yes -Necrosis Amt Large (67-100%) Large (67-100%) -Necrotic Tissue Type Eschar Adherent Slough -Structure Exposed N/A N/A -Texture (Kirstie-wound Skin Appearance) No Abnormality, Assessed Assessed -Moisture (Kirstie-wound Skin Appearance) Assessed,Dry/ Dry/Scaly Scaly -Color (Kirstie-wound Skin Appearance) No Abnormality, Assessed Assessed -Temperature (Kirstie-wound Skin No Abnormality No Abnormality Appearance) (Pt Warm) (Pt Warm) -Tenderness on Palpation (Kirstie-wound No No Skin Appearance) -Ulcer Cleansing Rinsed/ Wound Cleanser Irrigated with Saline -Foul Odor after Cleansing No No -Anesthetic Used 4% Lidocaine 5% Lidocaine Solution,5% Gel Lidocaine Gel -Wound Comment(s) scabbed #2 R ankle cluster -Combined with other wound No No -Current Size (cm) - Length 6.5 6.5 -Current Size (cm) - Width 5 14 -Current Size (cm) - Depth 0.1 0.1 -Total Square Cm 32.5 91.0 -Date of Last Picture (Recall this 04/09/22 field) -Photo Taken Yes -Tunneling No No -Undermining/Tunneling No No -Circular Undermining No No -Change in Wound Grade/Stage No -Exudate Amt None Present Medium -Exudate Type Serosanguineous -Wound Margin Distinct, Outline Attached -Granulation Amt None Present (0 Medium (34-66%) %) -Granulation Quality N/A [place] -Slough/Fibrin Yes Yes -Necrosis Amt Large (67-100%) Large (67-100%) -Necrotic Tissue Type Eschar Adherent Slough -Structure Exposed N/A N/A -Texture (Kirstie-wound Skin Appearance) No Abnormality, Assessed Assessed -Moisture (Kirstie-wound Skin Appearance) Assessed,Dry/ Dry/Scaly Scaly -Color (Kirstie-wound Skin Appearance) No Abnormality, Assessed Assessed -Temperature (Kirstie-wound Skin No Abnormality No Abnormality Appearance) (Pt Warm) (Pt Warm) -Tenderness on Palpation (Kirstie-wound No No Skin Appearance) -Ulcer Cleansing Rinsed/ Wound Cleanser Irrigated with Saline -Foul Odor after Cleansing No No -Anesthetic Used 4% Lidocaine 5% Lidocaine Solution,5% Gel Lidocaine Gel -Wound Comment(s) scabbed Lower Limb Edema Present No Yes Right Calf (cm) 30 31 Right Ankle (cm) 20.5 20.6 Left Calf (cm) 30.5 30.2 Left Ankle (cm) 19.4 19 WC - Nurse 2 - General Ulcer CM Notes Start: 04/09/22 13:29 Freq: Status: Active Protocol: Activity Type Activity Date Activity User E-sign Co-sign Detail Recorded Client Recorded Date Recorded By Document 04/09/22 15:12 PL [id number] 04/09/22 15:29 PL Document 04/16/22 15:08 PL [id number] 04/16/22 15:18 PL 04/09/22 04/16/22 15:12 15:08 Wound Center Nurse 2 #9 Right Heel -Time 14:24 -Correct Patient Yes -Correct Side, Site, Position Yes -Correct Procedure Yes -Procedure Performed Yes -Type of Procedure Debridement -Clinical Debridement Subcutaneous -Tissue Removed Subcutaneous -Post Debridement (cm) - Length 0.3 -Post Debridement (cm) - Width 0.5 -Post Debridement (cm) - Depth 0.1 -Total Square (Post) (cm) 0.15 -Area of Debridement (cm) - Length 0.3 -Area of Debridement (cm) - Width 0.5 -Total Square (Area) (cm) 0.15 -Tunneling No -Undermining/Tunneling No -Circular Undermining No -Wound/Ulcer Outcome Not Healed -Ulcer Cleansing Rinsed/ Irrigated with Saline -Foul Odor after Cleansing No -Bioengineered Tissue No -Bleeding Controlled with Pressure -Treatment Response Procedure Tolerated Well -Debridement - Subq, 1st 20sq cm Yes -Debridement, SubQ, ea addt'l 20sq cm 1 or part thereof #8 Right Lat LE -Time 14:24 -Correct Patient Yes -Correct Side, Site, Position Yes -Correct Procedure Yes -Procedure Performed Yes -Type of Procedure Debridement -Clinical Debridement Subcutaneous -Tissue Removed Subcutaneous -Post Debridement (cm) - Length 2.0 -Post Debridement (cm) - Width 1.4 -Post Debridement (cm) - Depth 0.1 -Total Square (Post) (cm) 2.80 -Area of Debridement (cm) - Length 2.0 -Area of Debridement (cm) - Width 1.4 -Total Square (Area) (cm) 2.80 -Tunneling No -Undermining/Tunneling No -Circular Undermining No -Wound/Ulcer Outcome Not Healed -Ulcer Cleansing Rinsed/ Irrigated with Saline -Foul Odor after Cleansing No -Bioengineered Tissue No -Bleeding Controlled with Pressure -Treatment Response Procedure Tolerated Well -Debridement - Subq, 1st 20sq cm No #7 Right 1st Toe -Time 14:24 -Correct Patient Yes -Correct Side, Site, Position Yes -Correct Procedure Yes -Procedure Performed Yes -Type of Procedure Debridement -Clinical Debridement Subcutaneous -Tissue Removed Subcutaneous -Post Debridement (cm) - Length 1.0 -Post Debridement (cm) - Width 2.0 -Post Debridement (cm) - Depth 0.1 -Total Square (Post) (cm) 2.00 -Area of Debridement (cm) - Length 1.0 -Area of Debridement (cm) - Width 2.0 -Total Square (Area) (cm) 2.00 -Tunneling No -Undermining/Tunneling No -Circular Undermining No -Wound/Ulcer Outcome Not Healed -Ulcer Cleansing Rinsed/ Irrigated with Saline -Foul Odor after Cleansing No -Bioengineered Tissue No -Bleeding Controlled with Pressure -Treatment Response Procedure Tolerated Well -Debridement - Subq, 20sq cm No #6 R Dorsal -Time 14:24 -Correct Patient Yes -Correct Side, Site, Position Yes -Correct Procedure Yes -Procedure Performed Yes -Type of Procedure Debridement -Clinical Debridement Subcutaneous -Tissue Removed Subcutaneous -Post Debridement (cm) - Length 1.5 -Post Debridement (cm) - Width 1.4 -Post Debridement (cm) - Depth 0.1 -Total Square (Post) (cm) 2.10 -Area of Debridement (cm) - Length 1.5 -Area of Debridement (cm) - Width 1.4 -Total Square (Area) (cm) 2.10 -Tunneling No -Undermining/Tunneling No -Circular Undermining No -Wound/Ulcer Outcome Not Healed -Ulcer Cleansing Rinsed/ Irrigated with Saline -Foul Odor after Cleansing No -Bioengineered Tissue No -Bleeding Controlled with Pressure -Treatment Response Procedure Tolerated Well -Debridement - Subq, 20sq cm No #5 L wrist -Time 13:35 14:24 -Correct Patient Yes Yes -Correct Side, Site, Position Yes Yes -Correct Procedure Yes Yes -Procedure Performed Yes Yes -Type of Procedure Debridement Debridement -Clinical Debridement Subcutaneous Subcutaneous -Tissue Removed Subcutaneous Subcutaneous -Post Debridement (cm) - Length 1.2 0.9 -Post Debridement (cm) - Width 3.8 2.1 -Post Debridement (cm) - Depth 0.7 0.4 -Total Square (Post) (cm) 4.56 1.89 -Area of Debridement (cm) - Length 1.2 0.9 -Area of Debridement (cm) - Width 3.8 2.1 -Total Square (Area) (cm) 4.56 1.89 -Tunneling No No -Undermining/Tunneling No No -Circular Undermining No No -Wound/Ulcer Outcome Not Healed Not Healed -Ulcer Cleansing Rinsed/ Rinsed/ Irrigated with Irrigated with Saline Saline -Foul Odor after Cleansing No No -Bioengineered Tissue No No -Bleeding Controlled with Pressure Pressure -Treatment Response Procedure Procedure Tolerated Well Tolerated Well -Debridement - Subq, 1st 20sq cm Yes No -Debridement, SubQ, ea addt'l 20sq cm 2 or part thereof #4 L ankle -Time 13:35 14:24 -Correct Patient Yes Yes -Correct Side, Site, Position Yes Yes -Correct Procedure Yes Yes -Procedure Performed Yes Yes -Type of Procedure Debridement Debridement -Clinical Debridement Subcutaneous Subcutaneous -Tissue Removed Subcutaneous Subcutaneous -Post Debridement (cm) - Length 4.8 4.0 -Post Debridement (cm) - Width 1.7 4.5 -Post Debridement (cm) - Depth 0.2 0.1 -Total Square (Post) (cm) 8.16 18.00 -Area of Debridement (cm) - Length 4.8 4.0 -Area of Debridement (cm) - Width 1.7 4.5 -Total Square (Area) (cm) 8.16 18.00 -Tunneling No No -Undermining/Tunneling No No -Circular Undermining No No -Wound/Ulcer Outcome Not Healed Not Healed -Ulcer Cleansing Rinsed/ Rinsed/ Irrigated with Irrigated with Saline Saline -Foul Odor after Cleansing No No -Bioengineered Tissue No No -Bleeding Controlled with Pressure -Treatment Response Procedure Tolerated Well -Debridement - Subq, 1st 20sq cm No No #3 R Post -Time 14:24 -Correct Patient Yes -Correct Side, Site, Position Yes -Correct Procedure Yes -Procedure Performed Yes -Type of Procedure Debridement -Clinical Debridement Subcutaneous -Tissue Removed Subcutaneous -Post Debridement (cm) - Length 1.9 -Post Debridement (cm) - Width 1.3 -Post Debridement (cm) - Depth 0.1 -Total Square (Post) (cm) 2.47 -Area of Debridement (cm) - Length 1.9 -Area of Debridement (cm) - Width 1.3 -Total Square (Area) (cm) 2.47 -Tunneling No -Undermining/Tunneling No -Circular Undermining No -Wound/Ulcer Outcome Not Healed -Ulcer Cleansing Rinsed/ Irrigated with Saline -Foul Odor after Cleansing No -Bioengineered Tissue No -Bleeding Controlled with Pressure -Treatment Response Procedure Tolerated Well -Debridement - Subq, 1st 20sq cm No #2 R ankle cluster -Time 14:24 -Correct Patient Yes -Correct Side, Site, Position Yes -Correct Procedure Yes -Procedure Performed Yes -Type of Procedure Debridement -Clinical Debridement Subcutaneous -Tissue Removed Subcutaneous -Post Debridement (cm) - Length 1.8 -Post Debridement (cm) - Width 3.0 -Post Debridement (cm) - Depth 0.1 -Total Square (Post) (cm) 5.40 -Area of Debridement (cm) - Length 1.8 -Area of Debridement (cm) - Width 3.0 -Total Square (Area) (cm) 5.40 -Tunneling No -Undermining/Tunneling No -Circular Undermining No -Wound/Ulcer Outcome Not Healed -Ulcer Cleansing Rinsed/ Irrigated with Saline -Foul Odor after Cleansing No -Bioengineered Tissue No -Bleeding Controlled with Pressure -Treatment Response Procedure Tolerated Well -Debridement - Subq, 1st 20sq cm No Pain Scale: 0-10 Numeric Is Patient Pain Free? Yes Yes - Nurse 3 - General Ulcer D/C NN Start: 04/09/22 13:29 Freq: Status: Active Protocol: Activity Type Activity Date Activity User E-sign Co-sign Detail Recorded Client Recorded Date Recorded By Document 04/09/22 15:05 KS [id number] 04/09/22 15:16 KS Document 04/16/22 14:59 AK [id number] 04/16/22 15:01 AK 04/09/22 04/16/22 15:05 14:59 Wound Care Center Nurse 3 #1 R lateral foot -Ulcer Cleansing Soap and Water -Primary Dressing Covered/Secured with Dry Gauze & Roll Gauze, Secured with Tape #5 L wrist -Ulcer Cleansing Rinsed/ Irrigated with Saline -Foul Odor after Cleansing No -Negative Pressure Wound Therapy N/A -Primary Dressing Applied Promogran Promogran Mahnaz Matter Mahnaz Matter, Mepilex Border -Primary Dressing Covered/Secured with Dry Gauze & Roll Gauze, Secured with Tape -Mepilex Border 1 -Promogran Mahnaz Matter 1 1 #4 L ankle -Ulcer Cleansing Soap and Water Rinsed/ Irrigated with Saline -Foul Odor after Cleansing No -Negative Pressure Wound Therapy N/A -Other Dressing santyl ordered. hydrogel hydrogel placed today on wounds. -Primary Dressing Covered/Secured with Dry Gauze & Dry Gauze & Roll Gauze, Roll Gauze, Secured with Secured with Tape Tape #3 R Post -Ulcer Cleansing Soap and Water Rinsed/ Irrigated with Saline -Foul Odor after Cleansing No -Negative Pressure Wound Therapy N/A -Other Dressing hydrogel -Primary Dressing Covered/Secured with Dry Gauze & Dry Gauze & Roll Gauze, Roll Gauze, Secured with Secured with Tape Tape #2 R ankle cluster -Ulcer Cleansing Soap and Water Rinsed/ Irrigated with Saline -Foul Odor after Cleansing No -Negative Pressure Wound Therapy N/A -Other Dressing hydrogel -Primary Dressing Covered/Secured with Dry Gauze & Dry Gauze & Roll Gauze, Roll Gauze, Secured with Secured with Tape Tape Right -Lotion applied to leg before No compression wrap -Tubular Bandage Single Layer Single Layer -Size of Tubigrip Used Size D Size E -Size D ($) 1 -Size E ($) 1 Left -Tubular Bandage Single Layer Single Layer -Size of Tubigrip Used Size D Size E -Size D ($) 1 -Size E ($) 1 Pain Scale: 0-10 Numeric Is Patient Pain Free? Yes Yes WC - Visit Discharge Discharge Condition Stable Ambulatory Status Ambulatory Transportation Private Auto Medication Reconcilliation completed & Yes provided to patient/care provider Clinical Summary of Care Provided Yes Additional Wound Wound debrided: R ankle cluster Laterality: Right Type of Debridement: Excisional debridement Anesthesia Used: 5% Lidocaine Gel and Cetacaine Depth: Down to and including healthy tissue and in the subcutaneous layer Percentage of wound debrided: 100 Instrument Used: 5mm curette Tissue Removed: adherent slough/scab, devitalized tissue Severity: Fat Layer Exposed Amount of bleeding with debridement: Mild Bleeding Controlled with: Pressure Patient tolerated procedure: Patient tolerated procedure well Additional Wound Wound debrided: R lateral foot Laterality: Right Type of Debridement: Excisional debridement Anesthesia Used: 5% Lidocaine Gel and Cetacaine Depth: Down to and including healthy tissue and in the subcutaneous layer Percentage of wound debrided: 100 Instrument Used: 5mm curette Tissue Removed: adherent slough/scab, devitalized tissue Severity: Fat Layer Exposed Amount of bleeding with debridement: Mild Bleeding Controlled with: Pressure Patient tolerated procedure: Patient tolerated procedure well Additional Wound Wound debrided: L wrist Laterality: Left Type of Debridement: Excisional debridement Anesthesia Used: 5% Lidocaine Gel and Cetacaine Depth: Down to and including healthy tissue and in the subcutaneous layer Percentage of wound debrided: 100 Instrument Used: 5mm curette Tissue Removed: adherent slough/scab, devitalized tissue Severity: Fat Layer Exposed Amount of bleeding with debridement: Mild Bleeding Controlled with: Pressure Patient tolerated procedure: Patient tolerated procedure well Additional Wound Wound debrided: L ankle Laterality: Left Type of Debridement: Excisional debridement Anesthesia Used: 5% Lidocaine Gel and Cetacaine Depth: Down to and including healthy tissue and in the subcutaneous layer Percentage of wound debrided: 100 Instrument Used: 5mm curette Tissue Removed: adherent slough/scab, devitalized tissue Severity: Fat Layer Exposed Amount of bleeding with debridement: Mild Bleeding Controlled with: Pressure Additional Wound Wound debrided: L great toe Laterality: Left Type of Debridement: Excisional debridement Anesthesia Used: 5% Lidocaine Gel Depth: Down to and including healthy tissue Percentage of wound debrided: 100 Instrument Used: 5mm curette Tissue Removed: slough, devitalized tissue Amount of bleeding with debridement: Mild Bleeding Controlled with: Pressure Patient tolerated procedure: Patient tolerated procedure well Assessment/Plan Assessment/Plan (1) 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 All of wound with improved appearance from last week, was able to remove more of the adherent scabs despite patient not yet applying santyl. All wound bases had pink granulation tissue and good bleeding. Apply santyl to all lower extremity wounds, cover with DSD/kerlix and apply tubigrips for compression. Continue moistened promogran mahnaz to L wrist wound. Will switch to silicone-bordered dressing for secondary, hopefully this will be easier for patient to apply and will stay in place better than kerliz wrap. Change dressings daily or more often as needed to keep clean and dry. Advise to adjust diet to reduce sugar/carbs and increase protein. Work towards better blood sugar control. Elevate legs when resting. Return to clinic in 1 week or sooner as needed.
[2022-04-23 14:03] VITALS: BP 149/72; PULSE 74; RESP 16; TEMP 36.1
--- NOTE | 2022-04-23 17:44 | PCM.WC.PN ---
History of Present Illness Date of Service: 04/23/22 Chief Complaint: Left wrist wound Multiple bilateral lower extremity wounds History of Wound: Patient is new to [facility] but known to me from the vascular surgery clinic. 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 Patient was understandably quite ill following this and hospitalized for some time during which he had significant BLE edema at which point the wounds began to appear. They were overall stable for some time, and then he was hospitalized a few weeks ago for pneumonia, had increased BLE edema again, and wounds worsened/new ones appeared. Since then, he feels they are improved in appearance. The wrist wound appeared during the initial hospitalization for AAA, at that time he describes it initially as a hematoma which eventually developed into this chronic wound. Last week, he had significant erythema and pain in his RLE and was started on antibiotics. Venous duplex was also obtained to r/o DVT and this was negative. Erythema did improve with antibiotics. Patient still has pain in bilateral feet, worse right than left; bilateral feet/ankles are intermittently hypersensitive to touch. He notes continued mild BLE edema. He does not currently wear compression. Subjective Subjective Paitent has been applying Santyl and changing dressings for his BLE wounds as directed. He has been applying marcela and DSD to L wrist wound as directed. No new/worsening pain, erythema, swelling, drainage, foul odor, F/C, N/V. Objective Data Objective Data Vital Signs: Vital Signs Temp Pulse Resp BP O2 Del Method O2 Flow Rate 97 F L 74 16 149/72 H Room Air 2 04/23/22 14:03 04/23/22 14:03 04/23/22 14:03 04/23/22 14:03 04/23/22 14:03 04/16/22 14:11 Oxygen Flow Rate (L/min) 2 Oxygen Delivery Method Room Air Charges/Coding Wound Center CF Procedures [id number]: [id number] RMVL DEVITAL TIS 20 CM/< Multi Select Codes Wound Center CF Procedures [id number]: [id number] RMVL DEVITAL TIS 20 CM/< Physical Exam Const alert, oriented x3 and no apparent distress General Appearance: cooperative, comfortable and well developed HEENT normocephalic, head/scalp atraumatic, hearing grossly normal bilaterally, external ears normal and external nose normal Eyes EOMs intact bilaterally General Eye: normal appearance of both eyes Neck full ROM General: normal visual inspection and trachea midline Resp normal respiratory effort, no retractions and no use of accessory muscles Effort and Inspection: able to speak in complete sentences and symmetric chest movement Cardio regular rate and regular rhythm Peripheral Pulses: brachial pulses present and radial pulses present Extremity Extremity Narrative: Mild bilateral lower extremity edema, right worse than left. Patient had sensitivity to light touch, especially on R foot. Skin Wounds: wounds noted Wound Narrative: Multiple bilateral ankle/foot wounds. All with improved appearance. Some have healed since last week. [place], granulation tissue at the wound beds. Good bleeding. No significant erythema, foul odor, drainage noted. Left wrist wound with pink granulation tissue at base, minimal slough. Significantly decreased in size from last week. 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: R asp net c developer lower leg Laterality: Right Type of Debridement: Excisional debridement Anesthesia Used: 5% Lidocaine Gel and Cetacaine Depth: Down to and including healthy tissue and in the subcutaneous layer Percentage of wound debrided: 100 Instrument Used: 5mm curette Tissue Removed: adherent slough/scab, devitalized tissue Severity: Fat Layer Exposed Amount of bleeding with debridement: Mild Bleeding Controlled with: Pressure Patient tolerated procedure: Patient tolerated procedure well Post-Debridement Measurements and Additional Note: Post-Debridement Measurements/Treatment - Nurse 1 - General Ulcer Assessment Start: 04/09/22 13:29 Freq: Status: Active Protocol: JC Activity Type Activity Date Activity User E-sign Co-sign Detail Recorded Client Recorded Date Recorded By Document 04/09/22 13:30 RI [id number] 04/09/22 13:42 AK Document 04/16/22 14:11 AK [id number] 04/16/22 14:21 AK Document 04/23/22 14:03 KS [id number] 04/23/22 14:17 KS 04/09/22 04/16/22 04/23/22 13:30 14:11 14:03 - Today's Visit Information Type of service Initial Visit Follow-up Visit Follow-up Visit (Physician/BANK REPRESENTATIVE (Physician/BANK REPRESENTATIVE ) ) Arrival Mode Ambulatory Ambulatory Ambulatory Transfer Assistance None None Patient Identification Verified (Name & Yes Yes Yes ) Patient Requires Transmission-Based No No No Precautions Safety Precautions NA Finger Stick Blood Sugar(mg/dl) (if 149 indicated): Blood Sugar Stated by Patient Vital Signs Temperature (97.8 F-99.1 F) 97.2 F L 97 F L Temperature Source Temporal Temporal Pulse Rate (60-100) 58 L 74 Pulse Location Monitor Monitor Respiratory Rate (12-18) 18 16 Respiratory rate source Observation Observation Oxygen Delivery Method Nasal Cannula Room Air O2 L/MIN (L/min) 2 Blood Pressure (90/60-120/80) 155/78 H 149/72 H Blood Pressure Mean (mm Hg) 103 97 Source Monitor Monitor Position Sitting Sitting Blood Pressure Location Right Arm Right Arm History Since Last Visit- (Skip if this is Patient's initial visit) Have you changed medications since your No No last visit? Any new allergies or adverse reactions No No Had a fall/change in ADL's that may No No increase risk of falls Signs or symptoms of abuse and/or No No neglect since last visit Have you been in the hospital since your No No last visit? Has dressing in place as prescribed Yes Yes Has compression in place as prescribed No No Has offloadiing in place as prescribed No N/A Experienced any changes in pain level or No No management Left Footwear Regular Shoe Regular Shoe Right Footwear Regular Shoe Regular Shoe Pain Scale: 0-10 Numeric Is Patient Pain Free? No Yes Yes WC - Nurse 1 - General Ulcer Measurement Start: 04/09/22 13:29 Freq: Status: Active Protocol: Activity Type Activity Date Activity User E-sign Co-sign Detail Recorded Client Recorded Date Recorded By Document 04/09/22 13:30 AK [id number] 04/09/22 13:42 AK Document 04/16/22 14:11 AK [id number] 04/16/22 14:21 AK Document 04/23/22 14:03 KS [id number] 04/23/22 14:17 KS 04/09/22 04/16/22 04/23/22 13:30 14:11 14:03 Wound Center Nurse 1 #4 L ankle -Combined with other wound No No No -Current Size (cm) - Length 4 2 0.7 -Current Size (cm) - Width 4.8 1.1 1 -Current Size (cm) - Depth 0.1 0.1 0.1 -Total Square Cm 19.2 2.2 0.7 -Date of Last Picture (Recall this 04/23/22 field) -Photo Taken Yes Yes Yes -Epithelialization None Present -Tunneling No No No -Undermining/Tunneling No No No -Circular Undermining No No No -Change in Wound Grade/Stage No -Exudate Amt None Present Medium Small -Exudate Type Serosanguineous Serosanguineous -Wound Margin Distinct, Distinct, Distinct, Outline Outline Outline Attached Attached Attached -Granulation Amt None Present (0 Medium (34-66%) Medium (34-66%) %) -Granulation Quality N/A [place] Red -Slough/Fibrin Yes Yes Yes -Necrosis Amt Large (67-100%) Medium (34-66%) Medium (34-66%) -Necrotic Tissue Type Eschar Adherent Slough Adherent Slough -Structure Exposed N/A N/A -Texture (Kirstie-wound Skin Appearance) Assessed Assessed Assessed, Scarring -Moisture (Kirstie-wound Skin Appearance) Assessed,Dry/ Assessed,Dry/ Assessed Scaly Scaly -Color (Kirstie-wound Skin Appearance) No Abnormality, Assessed Assessed Not Assessed -Temperature (Kirstie-wound Skin No Abnormality No Abnormality No Abnormality Appearance) (Pt Warm) (Pt Warm) (Pt Warm) -Tenderness on Palpation (Kirstie-wound No No No Skin Appearance) -Ulcer Cleansing Rinsed/ Wound Cleanser Soap and Water Irrigated with Saline -Foul Odor after Cleansing No No No -Anesthetic Used 4% Lidocaine 5% Lidocaine 5% Lidocaine Solution,5% Gel Gel Lidocaine Gel -Wound Comment(s) scabbed #2 R ankle cluster -Combined with other wound No No No -Current Size (cm) - Length 6.5 6.5 2 -Current Size (cm) - Width 5 14 1.1 -Current Size (cm) - Depth 0.1 0.1 0.1 -Total Square Cm 32.5 91.0 2.2 -Date of Last Picture (Recall this 04/09/22 04/23/22 field) -Photo Taken Yes Yes -Epithelialization None Present -Tunneling No No No -Undermining/Tunneling No No No -Circular Undermining No No No -Change in Wound Grade/Stage No -Exudate Amt None Present Medium Small -Exudate Type Serosanguineous Serosanguineous -Wound Margin Distinct, Distinct, Outline Outline Attached Attached -Granulation Amt None Present (0 Medium (34-66%) None Present (0 %) %) -Granulation Quality N/A [place] -Slough/Fibrin Yes Yes Yes -Necrosis Amt Large (67-100%) Large (67-100%) Large (67-100%) -Necrotic Tissue Type Eschar Adherent Slough Eschar -Structure Exposed N/A N/A -Texture (Kirstie-wound Skin Appearance) No Abnormality, Assessed Assessed, Assessed Scarring -Moisture (Kirstie-wound Skin Appearance) Assessed,Dry/ Dry/Scaly Assessed Scaly -Color (Kirstie-wound Skin Appearance) No Abnormality, Assessed Assessed Assessed -Temperature (Kirstie-wound Skin No Abnormality No Abnormality No Abnormality Appearance) (Pt Warm) (Pt Warm) (Pt Warm) -Tenderness on Palpation (Kirstie-wound No No No Skin Appearance) -Ulcer Cleansing Rinsed/ Wound Cleanser Soap and Water Irrigated with Saline -Foul Odor after Cleansing No No No -Anesthetic Used 4% Lidocaine 5% Lidocaine 5% Lidocaine Solution,5% Gel Gel Lidocaine Gel -Wound Comment(s) scabbed #1 R lateral foot -Combined with other wound No -Current Size (cm) - Length 2.2 -Current Size (cm) - Width 4.5 -Current Size (cm) - Depth 0.1 -Total Square Cm 9.90 -Date of Last Picture (Recall this 04/09/22 field) -Photo Taken Yes -Tunneling No -Undermining/Tunneling No -Circular Undermining No -Change in Wound Grade/Stage No -Exudate Amt None Present -Wound Margin Distinct, Outline Attached -Granulation Amt None Present (0 %) -Granulation Quality N/A -Slough/Fibrin No -Necrosis Amt Large (67-100%) -Necrotic Tissue Type Eschar -Structure Exposed N/A -Texture (Kirstie-wound Skin Appearance) No Abnormality, Assessed -Moisture (Kirstie-wound Skin Appearance) No Abnormality, Assessed -Color (Kirstie-wound Skin Appearance) No Abnormality, Assessed -Temperature (Kirstie-wound Skin No Abnormality Appearance) (Pt Warm) -Tenderness on Palpation (Kirstie-wound No Skin Appearance) -Ulcer Cleansing Rinsed/ Irrigated with Saline -Foul Odor after Cleansing No -Anesthetic Used 4% Lidocaine Solution,5% Lidocaine Gel -Wound Comment(s) scabbed #9 Right Achilles -Combined with other wound No -Current Size (cm) - Length 0 -Current Size (cm) - Width 0 -Current Size (cm) - Depth 0 -Total Square Cm 0 -Date of Last Picture (Recall this 04/23/22 field) -Photo Taken No -Epithelialization Large 67-100% #8 Right Lat Foot -Combined with other wound No -Current Size (cm) - Length 0 -Current Size (cm) - Width 0 -Current Size (cm) - Depth 0 -Total Square Cm 0 -Date of Last Picture (Recall this 04/23/22 field) -Photo Taken Yes #7 Right 1st Toe -Combined with other wound No -Current Size (cm) - Length 0.1 -Current Size (cm) - Width 0.1 -Current Size (cm) - Depth 0.1 -Total Square Cm 0.01 -Date of Last Picture (Recall this 04/23/22 field) -Photo Taken Yes -Epithelialization Large 67-100% #6 R Dorsal -Combined with other wound No -Current Size (cm) - Length 6.5 -Current Size (cm) - Width 2.5 -Current Size (cm) - Depth 0.1 -Total Square Cm 16.25 -Date of Last Picture (Recall this 04/23/22 field) -Photo Taken Yes -Epithelialization Small 1-33% -Tunneling No -Undermining/Tunneling No -Circular Undermining No -Exudate Amt Small -Exudate Type Serosanguineous -Wound Margin Distinct, Outline Attached -Granulation Amt Medium (34-66%) -Granulation Quality Red -Slough/Fibrin Yes -Necrosis Amt Medium (34-66%) -Necrotic Tissue Type Adherent Slough -Texture (Kirstie-wound Skin Appearance) Assessed, Scarring -Moisture (Kirstie-wound Skin Appearance) Assessed -Color (Kirstie-wound Skin Appearance) Assessed -Temperature (Kirstie-wound Skin No Abnormality Appearance) (Pt Warm) -Tenderness on Palpation (Kirstie-wound No Skin Appearance) -Ulcer Cleansing Soap and Water -Foul Odor after Cleansing No -Anesthetic Used 5% Lidocaine Gel #5 L wrist -Combined with other wound No No No -Current Size (cm) - Length 1.1 0.5 0.4 -Current Size (cm) - Width 3.2 2.1 1.6 -Current Size (cm) - Depth 0.1 0.3 0.1 -Total Square Cm 3.52 1.05 0.64 -Date of Last Picture (Recall this 04/23/22 field) -Photo Taken Yes Yes Yes -Epithelialization None Present -Tunneling No No No -Undermining/Tunneling No No No -Circular Undermining No No No -Change in Wound Grade/Stage No -Exudate Amt None Present Medium Small -Exudate Type Serosanguineous Serosanguineous -Wound Margin Distinct, Distinct, Distinct, Outline Outline Outline Attached Attached Attached -Granulation Amt None Present (0 Medium (34-66%) None Present (0 %) %) -Granulation Quality [place] -Slough/Fibrin Yes Yes Yes -Necrosis Amt Large (67-100%) Large (67-100%) Large (67-100%) -Necrotic Tissue Type Adherent Slough Adherent Slough Adherent Slough -Structure Exposed N/A N/A -Texture (Kirstie-wound Skin Appearance) No Abnormality, Assessed Assessed, Assessed Scarring -Moisture (Kirstie-wound Skin Appearance) Assessed,Dry/ Dry/Scaly Assessed Scaly -Color (Kirstie-wound Skin Appearance) No Abnormality, Assessed Assessed Assessed -Temperature (Kirstie-wound Skin No Abnormality No Abnormality No Abnormality Appearance) (Pt Warm) (Pt Warm) (Pt Warm) -Tenderness on Palpation (Kirstie-wound No No No Skin Appearance) -Ulcer Cleansing Rinsed/ Wound Cleanser Soap and Water Irrigated with Saline -Foul Odor after Cleansing No No Yes, Due to Product Use -Anesthetic Used 4% Lidocaine 5% Lidocaine 5% Lidocaine Solution,5% Gel Gel Lidocaine Gel -Wound Comment(s) scabbed #3 R Ankle -Combined with other wound No No No -Current Size (cm) - Length 8 1.8 1.5 -Current Size (cm) - Width 2 1 1 -Current Size (cm) - Depth 0.1 0.1 0.1 -Total Square Cm 16 1.8 1.5 -Date of Last Picture (Recall this 04/09/22 04/23/22 field) -Photo Taken Yes Yes Yes -Epithelialization None Present -Tunneling No No No -Undermining/Tunneling No No No -Circular Undermining No No No -Change in Wound Grade/Stage No -Exudate Amt None Present Medium None Present -Exudate Type Serosanguineous -Wound Margin Distinct, Distinct, Distinct, Outline Outline Outline Attached Attached Attached -Granulation Amt None Present (0 Medium (34-66%) None Present (0 %) %) -Granulation Quality N/A [place] -Slough/Fibrin Yes Yes Yes -Necrosis Amt Large (67-100%) Large (67-100%) Large (67-100%) -Necrotic Tissue Type Eschar Adherent Slough Eschar -Structure Exposed N/A N/A -Texture (Kirstie-wound Skin Appearance) No Abnormality, Assessed Assessed, Assessed Scarring -Moisture (Kirstie-wound Skin Appearance) Assessed,Dry/ Dry/Scaly Assessed Scaly -Color (Kirstie-wound Skin Appearance) No Abnormality, Assessed Assessed Assessed -Temperature (Kirstie-wound Skin No Abnormality No Abnormality No Abnormality Appearance) (Pt Warm) (Pt Warm) (Pt Warm) -Tenderness on Palpation (Kirstie-wound No No No Skin Appearance) -Ulcer Cleansing Rinsed/ Wound Cleanser Soap and Water Irrigated with Saline -Foul Odor after Cleansing No No No -Anesthetic Used 4% Lidocaine 5% Lidocaine 5% Lidocaine Solution,5% Gel Gel Lidocaine Gel -Wound Comment(s) scabbed Lower Limb Edema Present No Yes Right Calf (cm) 30 31 31 Right Ankle (cm) 20.5 20.6 1.5 Left Calf (cm) 30.5 30.2 30.5 Left Ankle (cm) 19.4 19 1.5 WC - Nurse 2 - General Ulcer CM Notes Start: 04/09/22 13:29 Freq: Status: Active Protocol: Activity Type Activity Date Activity User E-sign Co-sign Detail Recorded Client Recorded Date Recorded By Document 04/09/22 15:12 PL [id number] 04/09/22 15:29 PL Document 04/16/22 15:08 PL [id number] 04/16/22 15:18 PL Document 04/23/22 15:17 PL [id number] 04/23/22 15:26 PL 04/09/22 04/16/22 04/23/22 15:12 15:08 15:17 Wound Center Nurse 2 #4 L ankle -Time 13:35 14:24 -Correct Patient Yes Yes -Correct Side, Site, Position Yes Yes -Correct Procedure Yes Yes -Procedure Performed Yes Yes No -Type of Procedure Debridement Debridement -Clinical Debridement Subcutaneous Subcutaneous -Tissue Removed Subcutaneous Subcutaneous -Post Debridement (cm) - Length 4.8 4.0 -Post Debridement (cm) - Width 1.7 4.5 -Post Debridement (cm) - Depth 0.2 0.1 -Total Square (Post) (cm) 8.16 18.00 -Area of Debridement (cm) - Length 4.8 4.0 -Area of Debridement (cm) - Width 1.7 4.5 -Total Square (Area) (cm) 8.16 18.00 -Tunneling No No -Undermining/Tunneling No No -Circular Undermining No No -Wound/Ulcer Outcome Not Healed Not Healed Healed- Epithelialized -Ulcer Cleansing Rinsed/ Rinsed/ Irrigated with Irrigated with Saline Saline -Foul Odor after Cleansing No No -Bioengineered Tissue No No -Bleeding Controlled with Pressure -Treatment Response Procedure Tolerated Well -Debridement - Subq, 1st 20sq cm No No #2 R ankle cluster -Time 14:24 -Correct Patient Yes -Correct Side, Site, Position Yes -Correct Procedure Yes -Procedure Performed Yes No -Type of Procedure Debridement -Clinical Debridement Subcutaneous -Tissue Removed Subcutaneous -Post Debridement (cm) - Length 1.8 -Post Debridement (cm) - Width 3.0 -Post Debridement (cm) - Depth 0.1 -Total Square (Post) (cm) 5.40 -Area of Debridement (cm) - Length 1.8 -Area of Debridement (cm) - Width 3.0 -Total Square (Area) (cm) 5.40 -Tunneling No -Undermining/Tunneling No -Circular Undermining No -Wound/Ulcer Outcome Not Healed Healed- Epithelialized -Ulcer Cleansing Rinsed/ Irrigated with Saline -Foul Odor after Cleansing No -Bioengineered Tissue No -Bleeding Controlled with Pressure -Treatment Response Procedure Tolerated Well -Debridement - Subq, 1st 20sq cm No #10 Left Dorsal -Time 14:25 -Correct Patient Yes -Correct Side, Site, Position Yes -Correct Procedure Yes -Procedure Performed Yes -Type of Procedure Debridement -Clinical Debridement Subcutaneous -Tissue Removed Subcutaneous -Post Debridement (cm) - Length 0.7 -Post Debridement (cm) - Width 0.8 -Post Debridement (cm) - Depth 0.1 -Total Square (Post) (cm) 0.56 -Area of Debridement (cm) - Length 0.7 -Area of Debridement (cm) - Width 0.8 -Total Square (Area) (cm) 0.56 -Tunneling No -Undermining/Tunneling No -Circular Undermining No -Wound/Ulcer Outcome Not Healed -Ulcer Cleansing Rinsed/ Irrigated with Saline -Foul Odor after Cleansing No -Bioengineered Tissue No -Bleeding Controlled with Pressure -Treatment Response Procedure Tolerated Well -Debridement - Subq, 1st 20sq cm Yes #9 Right Achilles -Time 14:24 14:25 -Correct Patient Yes Yes -Correct Side, Site, Position Yes Yes -Correct Procedure Yes Yes -Procedure Performed Yes Yes -Type of Procedure Debridement Debridement -Clinical Debridement Subcutaneous Subcutaneous -Tissue Removed Subcutaneous Subcutaneous -Post Debridement (cm) - Length 0.3 1.5 -Post Debridement (cm) - Width 0.5 0.8 -Post Debridement (cm) - Depth 0.1 0.1 -Total Square (Post) (cm) 0.15 1.20 -Area of Debridement (cm) - Length 0.3 1.5 -Area of Debridement (cm) - Width 0.5 0.8 -Total Square (Area) (cm) 0.15 1.20 -Tunneling No No -Undermining/Tunneling No No -Circular Undermining No No -Wound/Ulcer Outcome Not Healed Not Healed -Ulcer Cleansing Rinsed/ Rinsed/ Irrigated with Irrigated with Saline Saline -Foul Odor after Cleansing No No -Bioengineered Tissue No No -Bleeding Controlled with Pressure Pressure -Treatment Response Procedure Procedure Tolerated Well Tolerated Well -Debridement - Subq, 1st 20sq cm Yes No -Debridement, SubQ, ea addt'l 20sq cm 1 or part thereof #8 Right Lat Foot -Time 14:24 14:25 -Correct Patient Yes Yes -Correct Side, Site, Position Yes Yes -Correct Procedure Yes Yes -Procedure Performed Yes Yes -Type of Procedure Debridement Debridement -Clinical Debridement Subcutaneous Subcutaneous -Tissue Removed Subcutaneous Subcutaneous -Post Debridement (cm) - Length 2.0 2.0 -Post Debridement (cm) - Width 1.4 1.4 -Post Debridement (cm) - Depth 0.1 0.1 -Total Square (Post) (cm) 2.80 2.80 -Area of Debridement (cm) - Length 2.0 2.0 -Area of Debridement (cm) - Width 1.4 1.4 -Total Square (Area) (cm) 2.80 2.80 -Tunneling No No -Undermining/Tunneling No No -Circular Undermining No No -Wound/Ulcer Outcome Not Healed Not Healed -Ulcer Cleansing Rinsed/ Rinsed/ Irrigated with Irrigated with Saline Saline -Foul Odor after Cleansing No No -Bioengineered Tissue No No -Bleeding Controlled with Pressure Pressure -Treatment Response Procedure Procedure Tolerated Well Tolerated Well -Debridement - Subq, 1st 20sq cm No No #7 Right 1st Toe -Time 14:24 14:25 -Correct Patient Yes Yes -Correct Side, Site, Position Yes Yes -Correct Procedure Yes Yes -Procedure Performed Yes Yes -Type of Procedure Debridement Debridement -Clinical Debridement Subcutaneous Subcutaneous -Tissue Removed Subcutaneous Subcutaneous -Post Debridement (cm) - Length 1.0 0.5 -Post Debridement (cm) - Width 2.0 1.5 -Post Debridement (cm) - Depth 0.1 0.1 -Total Square (Post) (cm) 2.00 0.75 -Area of Debridement (cm) - Length 1.0 0.5 -Area of Debridement (cm) - Width 2.0 1.5 -Total Square (Area) (cm) 2.00 0.75 -Tunneling No No -Undermining/Tunneling No No -Circular Undermining No No -Wound/Ulcer Outcome Not Healed Not Healed -Ulcer Cleansing Rinsed/ Rinsed/ Irrigated with Irrigated with Saline Saline -Foul Odor after Cleansing No No -Bioengineered Tissue No -Bleeding Controlled with Pressure Pressure -Treatment Response Procedure Procedure Tolerated Well Tolerated Well -Debridement - Subq, 1st 20sq cm No No #6 R Dorsal -Time 14:24 14:25 -Correct Patient Yes Yes -Correct Side, Site, Position Yes Yes -Correct Procedure Yes Yes -Procedure Performed Yes Yes -Type of Procedure Debridement Debridement -Clinical Debridement Subcutaneous Subcutaneous -Tissue Removed Subcutaneous Subcutaneous -Post Debridement (cm) - Length 1.5 1.2 -Post Debridement (cm) - Width 1.4 1.0 -Post Debridement (cm) - Depth 0.1 0.1 -Total Square (Post) (cm) 2.10 1.20 -Area of Debridement (cm) - Length 1.5 1.2 -Area of Debridement (cm) - Width 1.4 1.0 -Total Square (Area) (cm) 2.10 1.20 -Tunneling No No -Undermining/Tunneling No No -Circular Undermining No No -Wound/Ulcer Outcome Not Healed Not Healed -Ulcer Cleansing Rinsed/ Rinsed/ Irrigated with Irrigated with Saline Saline -Foul Odor after Cleansing No No -Bioengineered Tissue No No -Bleeding Controlled with Pressure Pressure -Treatment Response Procedure Procedure Tolerated Well Tolerated Well -Debridement - Subq, 1st 20sq cm No No #5 L wrist -Time 13:35 14:24 14:25 -Correct Patient Yes Yes Yes -Correct Side, Site, Position Yes Yes Yes -Correct Procedure Yes Yes Yes -Procedure Performed Yes Yes Yes -Type of Procedure Debridement Debridement Debridement -Clinical Debridement Subcutaneous Subcutaneous Subcutaneous -Tissue Removed Subcutaneous Subcutaneous Subcutaneous -Post Debridement (cm) - Length 1.2 0.9 0.4 -Post Debridement (cm) - Width 3.8 2.1 1.6 -Post Debridement (cm) - Depth 0.7 0.4 0.1 -Total Square (Post) (cm) 4.56 1.89 0.64 -Area of Debridement (cm) - Length 1.2 0.9 0.4 -Area of Debridement (cm) - Width 3.8 2.1 1.6 -Total Square (Area) (cm) 4.56 1.89 0.64 -Tunneling No No No -Undermining/Tunneling No No No -Circular Undermining No No No -Wound/Ulcer Outcome Not Healed Not Healed Not Healed -Ulcer Cleansing Rinsed/ Rinsed/ Rinsed/ Irrigated with Irrigated with Irrigated with Saline Saline Saline -Foul Odor after Cleansing No No No -Bioengineered Tissue No No No -Bleeding Controlled with Pressure Pressure Pressure -Treatment Response Procedure Procedure Procedure Tolerated Well Tolerated Well Tolerated Well -Debridement - Subq, 1st 20sq cm Yes No No -Debridement, SubQ, ea addt'l 20sq cm 2 or part thereof #3 R Ankle -Time 14:24 14:25 -Correct Patient Yes Yes -Correct Side, Site, Position Yes Yes -Correct Procedure Yes Yes -Procedure Performed Yes Yes -Type of Procedure Debridement Debridement -Clinical Debridement Subcutaneous Subcutaneous -Tissue Removed Subcutaneous Subcutaneous -Post Debridement (cm) - Length 1.9 1.8 -Post Debridement (cm) - Width 1.3 2.5 -Post Debridement (cm) - Depth 0.1 0.1 -Total Square (Post) (cm) 2.47 4.50 -Area of Debridement (cm) - Length 1.9 1.8 -Area of Debridement (cm) - Width 1.3 2.5 -Total Square (Area) (cm) 2.47 4.50 -Tunneling No No -Undermining/Tunneling No No -Circular Undermining No No -Wound/Ulcer Outcome Not Healed Not Healed -Ulcer Cleansing Rinsed/ Rinsed/ Irrigated with Irrigated with Saline Saline -Foul Odor after Cleansing No No -Bioengineered Tissue No No -Bleeding Controlled with Pressure Pressure -Treatment Response Procedure Procedure Tolerated Well Tolerated Well -Debridement - Subq, 1st 20sq cm No No Pain Scale: 0-10 Numeric Is Patient Pain Free? Yes Yes Yes WC - Nurse 3 - General Ulcer D/C NN Start: 04/09/22 13:29 Freq: Status: Active Protocol: Activity Type Activity Date Activity User E-sign Co-sign Detail Recorded Client Recorded Date Recorded By Document 04/09/22 15:05 [place] [id number] 04/09/22 15:16 [place] Document 04/16/22 14:59 [place] [id number] 04/16/22 15:01 RI Document 04/23/22 14:53 [facility] [id number] 04/23/22 14:57 [facility] 04/09/22 04/16/22 04/23/22 15:05 14:59 14:53 [facility] Nurse 3 #4 L ankle -Ulcer Cleansing Soap and Water Rinsed/ Rinsed/ Irrigated with Irrigated with Saline Saline -Foul Odor after Cleansing No No -Negative Pressure Wound Therapy N/A -Other Dressing santyl ordered. hydrogel SANTYL hydrogel placed today on wounds. -Primary Dressing Covered/Secured with Dry Gauze & Dry Gauze & Dry Gauze & Roll Gauze, Roll Gauze, Roll Gauze, Secured with Secured with Secured with Tape Tape Tape -Other Covering DRSG PER MT RN #2 R ankle cluster -Ulcer Cleansing Soap and Water Rinsed/ Rinsed/ Irrigated with Irrigated with Saline Saline -Foul Odor after Cleansing No No -Negative Pressure Wound Therapy N/A -Other Dressing hydrogel SANTYL -Primary Dressing Covered/Secured with Dry Gauze & Dry Gauze & Dry Gauze & Roll Gauze, Roll Gauze, Roll Gauze, Secured with Secured with Secured with Tape Tape Tape -Other Covering DRSG PER MT RN #1 R lateral foot -Ulcer Cleansing Soap and Water -Primary Dressing Covered/Secured with Dry Gauze & Roll Gauze, Secured with Tape #9 Right Achilles -Ulcer Cleansing Rinsed/ Irrigated with Saline -Foul Odor after Cleansing No -Other Dressing SANTYL -Primary Dressing Covered/Secured with Dry Gauze & Roll Gauze, Secured with Tape -Other Covering DRSG PER MT RN #8 Right Lat Foot -Ulcer Cleansing Rinsed/ Irrigated with Saline -Foul Odor after Cleansing No -Other Dressing SANTYL -Primary Dressing Covered/Secured with Dry Gauze & Roll Gauze, Secured with Tape -Other Covering DRSG PER MT RN #7 Right 1st Toe -Ulcer Cleansing Rinsed/ Irrigated with Saline -Foul Odor after Cleansing No -Other Dressing SANTYL -Primary Dressing Covered/Secured with Dry Gauze & Roll Gauze, Secured with Tape -Other Covering DRSG PER MT RN #6 R Dorsal -Ulcer Cleansing Rinsed/ Irrigated with Saline -Foul Odor after Cleansing No -Other Dressing SANTYL -Primary Dressing Covered/Secured with Dry Gauze & Roll Gauze, Secured with Tape -Other Covering DRSG PER MT #5 L wrist -Ulcer Cleansing Rinsed/ Rinsed/ Irrigated with Irrigated with Saline Saline -Foul Odor after Cleansing No No -Negative Pressure Wound Therapy N/A -Primary Dressing Applied Promogran Promogran C Hydrogel ($) Marcela Matter Marcela Matter, Mepilex Border -Other Dressing DRSG PER [place] RN -Primary Dressing Covered/Secured with Dry Gauze & Dry Gauze & Roll Gauze, Roll Gauze, Secured with Secured with Tape Tape -Mepilex Border 1 -Promogran Marcela Matter 1 1 #3 R Ankle -Ulcer Cleansing Soap and Water Rinsed/ Rinsed/ Irrigated with Irrigated with Saline Saline -Foul Odor after Cleansing No No -Negative Pressure Wound Therapy N/A -Other Dressing hydrogel SANTYL -Primary Dressing Covered/Secured with Dry Gauze & Dry Gauze & Dry Gauze & Roll Gauze, Roll Gauze, Roll Gauze, Secured with Secured with Secured with Tape Tape Tape -Other Covering DRSG PER MT RN Right -Lotion applied to leg before No compression wrap -Tubular Bandage Single Layer Single Layer Single Layer -Size of Tubigrip Used Size D Size E Size D -Size D ($) 1 1 -Size E ($) 1 Left -Tubular Bandage Single Layer Single Layer Single Layer -Size of Tubigrip Used Size D Size E Size D -Size D ($) 1 1 -Size E ($) 1 Pain Scale: 0-10 Numeric Is Patient Pain Free? Yes Yes Yes WC - Visit Discharge Discharge Condition Stable Stable Ambulatory Status Ambulatory Ambulatory Transportation Private Auto Private Auto Medication Reconcilliation completed & Yes provided to patient/care provider Clinical Summary of Care Provided Yes Additional Wound Wound debrided: R ankle cluster Laterality: Right Type of Debridement: Excisional debridement Anesthesia Used: 5% Lidocaine Gel and Cetacaine Depth: Down to and including healthy tissue and in the subcutaneous layer Percentage of wound debrided: 100 Instrument Used: 5mm curette, #10 blade and Forceps Tissue Removed: adherent slough/scab, devitalized tissue Severity: Fat Layer Exposed Amount of bleeding with debridement: Mild Bleeding Controlled with: Pressure Patient tolerated procedure: Patient tolerated procedure well Additional Wound Wound debrided: R lateral foot Laterality: Right Type of Debridement: Excisional debridement Anesthesia Used: 5% Lidocaine Gel and Cetacaine Depth: Down to and including healthy tissue and in the subcutaneous layer Percentage of wound debrided: 100 Instrument Used: 5mm curette Tissue Removed: adherent slough/scab, devitalized tissue Severity: Fat Layer Exposed Amount of bleeding with debridement: Mild Bleeding Controlled with: Pressure Patient tolerated procedure: Patient tolerated procedure well Additional Wound Wound debrided: L wrist Laterality: Left Type of Debridement: Excisional debridement Anesthesia Used: 5% Lidocaine Gel and Cetacaine Depth: Down to and including healthy tissue and in the subcutaneous layer Percentage of wound debrided: 100 Instrument Used: 5mm curette Tissue Removed: adherent slough/scab, devitalized tissue Severity: Fat Layer Exposed Amount of bleeding with debridement: Mild Bleeding Controlled with: Pressure Patient tolerated procedure: Patient tolerated procedure well Additional Wound Wound debrided: L ankle Laterality: Left Type of Debridement: Excisional debridement Anesthesia Used: 5% Lidocaine Gel and Cetacaine Depth: Down to and including healthy tissue and in the subcutaneous layer Percentage of wound debrided: 100 Instrument Used: 5mm curette Tissue Removed: adherent slough/scab, devitalized tissue Severity: Fat Layer Exposed Amount of bleeding with debridement: Mild Bleeding Controlled with: Pressure Additional Wound Wound debrided: L great toe Operative Diagnosis: healed Additional Wound Wound debrided: R great toe Laterality: Right Type of Debridement: Excisional debridement Anesthesia Used: 5% Lidocaine Gel Depth: Down to and including healthy tissue Instrument Used: 5mm curette Tissue Removed: slough, devitalized tissue Bleeding Controlled with: Pressure Patient tolerated procedure: Patient tolerated procedure well Assessment/Plan Assessment/Plan (1) 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 All of wounds with improved size from last week. All wound bases had pink granulation tissue and good bleeding. Continue santyl to all lower extremity wounds, cover with DSD/kerlix and apply tubigrips for compression. Collagen hydrogel to L wrist wound. Silicone-bordered dressing for secondary. Change dressings daily or more often as needed to keep clean and dry. Advise to adjust diet to reduce sugar/carbs and increase protein. Work towards better blood sugar control. Elevate legs when resting. Return to clinic in 1 week or sooner as needed.
[2022-04-30 13:54] VITALS: BP 141/74; PULSE 83; TEMP 36
--- NOTE | 2022-04-30 14:35 | PN.PCM_ITS ---
History of Present Illness Date of Service: 04/30/22 Chief Complaint: Left wrist wound Multiple bilateral lower extremity wounds History of Wound: Patient is new to [facility] but known to me from the vascular surgery clinic. 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 Patient was understandably quite ill following this and hospitalized for some time during which he had significant BLE edema at which point the wounds began to appear. They were overall stable for some time, and then he was hospitalized a few weeks ago for pneumonia, had increased BLE edema again, and wounds worsened/new ones appeared. Since then, he feels they are improved in appearance. The wrist wound appeared during the initial hospitalization for AAA, at that time he describes it initially as a hematoma which eventually developed into this chronic wound. Last week, he had significant erythema and pain in his RLE and was started on antibiotics. Venous duplex was also obtained to r/o DVT and this was negative. Erythema did improve with antibiotics. Patient still has pain in bilateral feet, worse right than left; bilateral feet/ankles are intermittently hypersensitive to touch. He notes continued mild BLE edema. He does not currently wear compression. Subjective Subjective Paitent has been applying Santyl and changing dressings for his BLE wounds as directed. He has been applying hydrogel to L wrist wound as directed. No new/worsening pain, erythema, swelling, drainage, foul odor, F/C, N/V. Objective Data Objective Data Vital Signs: Vital Signs Temp Pulse Resp BP O2 Del Method O2 Flow Rate 96.8 F L 83 16 141/74 H Room Air 2 04/30/22 13:54 04/30/22 13:54 04/23/22 14:03 04/30/22 13:54 04/23/22 14:03 04/16/22 14:11 Oxygen Flow Rate (L/min) 2 Oxygen Delivery Method Room Air Charges/Coding Wound Center CF Procedures [id number]: [id number] RMVL DEVITAL TIS 20 CM/< Multi Select Codes Wound Center CF Procedures [id number]: [id number] RMVL DEVITAL TIS 20 CM/< Physical Exam Const alert, oriented x3 and no apparent distress General Appearance: cooperative, comfortable and well developed HEENT normocephalic, head/scalp atraumatic, hearing grossly normal bilaterally, ex ternal ears normal and external nose normal Eyes EOMs intact bilaterally General Eye: normal appearance of both eyes Neck full ROM General: normal visual inspection and trachea midline Resp normal respiratory effort, no retractions and no use of accessory muscles Effort and Inspection: able to speak in complete sentences and symmetric chest movement Cardio regular rate and regular rhythm Peripheral Pulses: brachial pulses present and radial pulses present Extremity Extremity Narrative: Mild bilateral lower extremity edema, right worse than left. Patient had sensitivity to light touch, especially on R foot. Skin Wounds: wounds noted Wound Narrative: Multiple bilateral ankle/foot wounds. All with improved appearance. A few more have healed since last week. [place], granulation tissue at the wound beds. Good bleeding. No significant erythema, foul odor, drainage noted. Left wrist wound with pink granulation tissue at base, minimal slough. Significantly decreased in size from last week. 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 Laterality: Right Type of Debridement: Excisional debridement Anesthesia Used: 5% Lidocaine Gel and Cetacaine Depth: Down to and including healthy tissue and in the subcutaneous layer Percentage of wound debrided: 100 Instrument Used: 5mm curette Tissue Removed: adherent slough/scab, devitalized tissue Severity: Fat Layer Exposed Amount of bleeding with debridement: Mild Bleeding Controlled with: Pressure Patient tolerated procedure: Patient tolerated procedure well Post-Debridement Measurements and Additional Note: Post-Debridement Measurements/Treatment WC - Nurse 1 - General Ulcer Assessment Start: 04/09/22 13:29 Freq: Status: Active Protocol: JC Activity Type Activity Date Activity User E-sign Co-sign Detail Recorded Client Recorded Date Recorded By Document 04/09/22 13:30 NH [id number] 04/09/22 13:42 [place] Document 04/16/22 14:11 NH [id number] 04/16/22 14:21 AK Document 04/23/22 14:03 ID [id number] 04/23/22 14:17 ID Document 04/30/22 13:54 AK [id number] 04/30/22 14:09 NH 04/09/22 04/16/22 04/23/22 13:30 14:11 14:03 [facility] Today's Visit Information Type of service Initial Visit Follow-up Visit Follow-up Visit (Physician/CASING FINISHER AND STUFFER (Physician/CASING FINISHER AND STUFFER ) ) Arrival Mode Ambulatory Ambulatory Ambulatory Transfer Assistance None None Patient Identification Verified (Name & Yes Yes Yes ) Patient Requires Transmission-Based No No No Precautions Safety Precautions NA Finger Stick Blood Sugar(mg/dl) (if 149 indicated): Blood Sugar Stated by Patient Vital Signs Temperature (97.8 F-99.1 F) 97.2 F L 97 F L Temperature Source Temporal Temporal Pulse Rate (60-100) 58 L 74 Pulse Location Monitor Monitor Respiratory Rate (12-18) 18 16 Respiratory rate source Observation Observation Oxygen Delivery Method Nasal Cannula Room Air O2 L/MIN (L/min) 2 Blood Pressure (90/60-120/80) 155/78 H 149/72 H Blood Pressure Mean (mm Hg) 103 97 Source Monitor Monitor Position Sitting Sitting Blood Pressure Location Right Arm Right Arm History Since Last Visit- (Skip if this is Patient's initial visit) Have you changed medications since your No No last visit? Any new allergies or adverse reactions No No Had a fall/change in ADL's that may No No increase risk of falls Signs or symptoms of abuse and/or No No neglect since last visit Have you been in the hospital since your No No last visit? Has dressing in place as prescribed Yes Yes Has compression in place as prescribed No No Has offloadiing in place as prescribed No N/A Experienced any changes in pain level or No No management Left Footwear Regular Shoe Regular Shoe Right Footwear Regular Shoe Regular Shoe Pain Scale: 0-10 Numeric Is Patient Pain Free? No Yes Yes 04/30/22 13:54 [facility]'s Visit Information Type of service Follow-up Visit (Physician/CASING FINISHER AND STUFFER ) Arrival Mode Ambulatory Transfer Assistance Patient Identification Verified (Name & Yes ) Patient Requires Transmission-Based No Precautions Safety Precautions NA Finger Stick Blood Sugar(mg/dl) (if indicated): Blood Sugar Vital Signs Temperature (97.8 F-99.1 F) 96.8 F L Temperature Source Temporal Pulse Rate (60-100) 83 Pulse Location Monitor Respiratory Rate (12-18) Respiratory rate source Oxygen Delivery Method O2 L/MIN (L/min) Blood Pressure (90/60-120/80) 141/74 H Blood Pressure Mean (mm Hg) 96 Source Monitor Position Blood Pressure Location History Since Last Visit- (Skip if this is Patient's initial visit) Have you changed medications since your No last visit? Any new allergies or adverse reactions No Had a fall/change in ADL's that may No increase risk of falls Signs or symptoms of abuse and/or No neglect since last visit Have you been in the hospital since your No last visit? Has dressing in place as prescribed Yes Has compression in place as prescribed N/A Has offloadiing in place as prescribed N/A Experienced any changes in pain level or No management Left Footwear Regular Shoe Right Footwear Regular Shoe Pain Scale: 0-10 Numeric Is Patient Pain Free? Yes WC - Nurse 1 - General Ulcer Measurement Start: 04/09/22 13:29 Freq: Status: Active Protocol: Activity Type Activity Date Activity User E-sign Co-sign Detail Recorded Client Recorded Date Recorded By Document 04/09/22 13:30 NH [id number] 04/09/22 13:42 NH Document 04/16/22 14:11 NH [id number] 04/16/22 14:21 NH Document 04/23/22 14:03 ID [id number] 04/23/22 14:17 ID Document 04/30/22 13:54 NH [id number] 04/30/22 14:09 NH 04/09/22 04/16/22 04/23/22 13:30 14:11 14:03 Wound Center Nurse 1 #4 L ankle -Combined with other wound No No No -Current Size (cm) - Length 4 2 0.7 -Current Size (cm) - Width 4.8 1.1 1 -Current Size (cm) - Depth 0.1 0.1 0.1 -Total Square Cm 19.2 2.2 0.7 -Date of Last Picture (Recall this 04/23/22 field) -Photo Taken Yes Yes Yes -Epithelialization None Present -Tunneling No No No -Undermining/Tunneling No No No -Circular Undermining No No No -Change in Wound Grade/Stage No -Exudate Amt None Present Medium Small -Exudate Type Serosanguineous Serosanguineous -Wound Margin Distinct, Distinct, Distinct, Outline Outline Outline Attached Attached Attached -Granulation Amt None Present (0 Medium (34-66%) Medium (34-66%) %) -Granulation Quality N/A [place] Red -Slough/Fibrin Yes Yes Yes -Necrosis Amt Large (67-100%) Medium (34-66%) Medium (34-66%) -Necrotic Tissue Type Eschar Adherent Slough Adherent Slough -Structure Exposed N/A N/A -Texture (Kirstie-wound Skin Appearance) Assessed Assessed Assessed, Scarring -Moisture (Kirstie-wound Skin Appearance) Assessed,Dry/ Assessed,Dry/ Assessed Scaly Scaly -Color (Kirstie-wound Skin Appearance) No Abnormality, Assessed Assessed Not Assessed -Temperature (Kirstie-wound Skin No Abnormality No Abnormality No Abnormality Appearance) (Pt Warm) (Pt Warm) (Pt Warm) -Tenderness on Palpation (Kirstie-wound No No No Skin Appearance) -Ulcer Cleansing Rinsed/ Wound Cleanser Soap and Water Irrigated with Saline -Foul Odor after Cleansing No No No -Anesthetic Used 4% Lidocaine 5% Lidocaine 5% Lidocaine Solution,5% Gel Gel Lidocaine Gel -Wound Comment(s) scabbed #2 R ankle cluster -Combined with other wound No No No -Current Size (cm) - Length 6.5 6.5 2 -Current Size (cm) - Width 5 14 1.1 -Current Size (cm) - Depth 0.1 0.1 0.1 -Total Square Cm 32.5 91.0 2.2 -Date of Last Picture (Recall this 04/09/22 04/23/22 field) -Photo Taken Yes Yes -Epithelialization None Present -Tunneling No No No -Undermining/Tunneling No No No -Circular Undermining No No No -Change in Wound Grade/Stage No -Exudate Amt None Present Medium Small -Exudate Type Serosanguineous Serosanguineous -Wound Margin Distinct, Distinct, Outline Outline Attached Attached -Granulation Amt None Present (0 Medium (34-66%) None Present (0 %) %) -Granulation Quality N/A [place] -Slough/Fibrin Yes Yes Yes -Necrosis Amt Large (67-100%) Large (67-100%) Large (67-100%) -Necrotic Tissue Type Eschar Adherent Slough Eschar -Structure Exposed N/A N/A -Texture (Kirstie-wound Skin Appearance) No Abnormality, Assessed Assessed, Assessed Scarring -Moisture (Kirstie-wound Skin Appearance) Assessed,Dry/ Dry/Scaly Assessed Scaly -Color (Kirstie-wound Skin Appearance) No Abnormality, Assessed Assessed Assessed -Temperature (Kirstie-wound Skin No Abnormality No Abnormality No Abnormality Appearance) (Pt Warm) (Pt Warm) (Pt Warm) -Tenderness on Palpation (Kirstie-wound No No No Skin Appearance) -Ulcer Cleansing Rinsed/ Wound Cleanser Soap and Water Irrigated with Saline -Foul Odor after Cleansing No No No -Anesthetic Used 4% Lidocaine 5% Lidocaine 5% Lidocaine Solution,5% Gel Gel Lidocaine Gel -Wound Comment(s) scabbed #1 R lateral foot -Combined with other wound No -Current Size (cm) - Length 2.2 -Current Size (cm) - Width 4.5 -Current Size (cm) - Depth 0.1 -Total Square Cm 9.90 -Date of Last Picture (Recall this 04/09/22 field) -Photo Taken Yes -Tunneling No -Undermining/Tunneling No -Circular Undermining No -Change in Wound Grade/Stage No -Exudate Amt None Present -Wound Margin Distinct, Outline Attached -Granulation Amt None Present (0 %) -Granulation Quality N/A -Slough/Fibrin No -Necrosis Amt Large (67-100%) -Necrotic Tissue Type Eschar -Structure Exposed N/A -Texture (Kirstie-wound Skin Appearance) No Abnormality, Assessed -Moisture (Kirstie-wound Skin Appearance) No Abnormality, Assessed -Color (Kirstie-wound Skin Appearance) No Abnormality, Assessed -Temperature (Kirstie-wound Skin No Abnormality Appearance) (Pt Warm) -Tenderness on Palpation (Kirstie-wound No Skin Appearance) -Ulcer Cleansing Rinsed/ Irrigated with Saline -Foul Odor after Cleansing No -Anesthetic Used 4% Lidocaine Solution,5% Lidocaine Gel -Wound Comment(s) scabbed #10 Left Dorsal -Combined with other wound -Current Size (cm) - Length -Current Size (cm) - Width -Current Size (cm) - Depth -Total Square Cm -Photo Taken -Tunneling -Undermining/Tunneling -Circular Undermining -Change in Wound Grade/Stage -Exudate Amt -Exudate Type -Wound Margin -Granulation Amt -Granulation Quality -Slough/Fibrin -Necrosis Amt -Necrotic Tissue Type -Structure Exposed -Texture (Kirstie-wound Skin Appearance) -Moisture (Kirstie-wound Skin Appearance) -Color (Kirstie-wound Skin Appearance) -Temperature (Kirstie-wound Skin Appearance) -Tenderness on Palpation (Kirstie-wound Skin Appearance) -Ulcer Cleansing -Foul Odor after Cleansing -Anesthetic Used #9 Right Achilles -Combined with other wound No -Current Size (cm) - Length 0 -Current Size (cm) - Width 0 -Current Size (cm) - Depth 0 -Total Square Cm 0 -Date of Last Picture (Recall this 04/23/22 field) -Photo Taken No -Epithelialization Large 67-100% -Tunneling -Undermining/Tunneling -Circular Undermining -Change in Wound Grade/Stage -Exudate Amt -Wound Margin -Granulation Amt -Granulation Quality -Slough/Fibrin -Necrosis Amt -Necrotic Tissue Type -Structure Exposed -Texture (Kirstie-wound Skin Appearance) -Moisture (Kirstie-wound Skin Appearance) -Color (Kirstie-wound Skin Appearance) -Temperature (Kirstie-wound Skin Appearance) -Tenderness on Palpation (Kirstie-wound Skin Appearance) -Ulcer Cleansing -Foul Odor after Cleansing -Anesthetic Used -Wound Comment(s) #8 Right Lat Foot -Combined with other wound No -Current Size (cm) - Length 0 -Current Size (cm) - Width 0 -Current Size (cm) - Depth 0 -Total Square Cm 0 -Date of Last Picture (Recall this 04/23/22 field) -Photo Taken Yes -Tunneling -Undermining/Tunneling -Circular Undermining -Change in Wound Grade/Stage -Exudate Amt -Exudate Type -Wound Margin -Granulation Amt -Granulation Quality -Slough/Fibrin -Necrosis Amt -Necrotic Tissue Type -Structure Exposed -Texture (Kirstie-wound Skin Appearance) -Moisture (Kirstie-wound Skin Appearance) -Color (Kirstie-wound Skin Appearance) -Temperature (Kirstie-wound Skin Appearance) -Tenderness on Palpation (Kirstie-wound Skin Appearance) -Ulcer Cleansing -Foul Odor after Cleansing -Anesthetic Used #7 Right 1st Toe -Combined with other wound No -Current Size (cm) - Length 0.1 -Current Size (cm) - Width 0.1 -Current Size (cm) - Depth 0.1 -Total Square Cm 0.01 -Date of Last Picture (Recall this 04/23/22 field) -Photo Taken Yes -Epithelialization Large 67-100% -Tunneling -Undermining/Tunneling -Circular Undermining -Change in Wound Grade/Stage -Exudate Amt -Wound Margin -Granulation Amt -Granulation Quality -Slough/Fibrin -Necrosis Amt -Necrotic Tissue Type -Structure Exposed -Texture (Kirstie-wound Skin Appearance) -Moisture (Kirstie-wound Skin Appearance) -Color (Kirstie-wound Skin Appearance) -Temperature (Kirstie-wound Skin Appearance) -Tenderness on Palpation (Kirstie-wound Skin Appearance) -Ulcer Cleansing -Foul Odor after Cleansing -Anesthetic Used #6 R Dorsal -Combined with other wound No -Combined with (Name of Wound-Exactly as it is documented) -Current Size (cm) - Length 6.5 -Current Size (cm) - Width 2.5 -Current Size (cm) - Depth 0.1 -Total Square Cm 16.25 -Date of Last Picture (Recall this 04/23/22 field) -Photo Taken Yes -Epithelialization Small 1-33% -Tunneling No -Undermining/Tunneling No -Circular Undermining No -Exudate Amt Small -Exudate Type Serosanguineous -Wound Margin Distinct, Outline Attached -Granulation Amt Medium (34-66%) -Granulation Quality Red -Slough/Fibrin Yes -Necrosis Amt Medium (34-66%) -Necrotic Tissue Type Adherent Slough -Texture (Kirstie-wound Skin Appearance) Assessed, Scarring -Moisture (Kirstie-wound Skin Appearance) Assessed -Color (Kirstie-wound Skin Appearance) Assessed -Temperature (Kirstie-wound Skin No Abnormality Appearance) (Pt Warm) -Tenderness on Palpation (Kirstie-wound No Skin Appearance) -Ulcer Cleansing Soap and Water -Foul Odor after Cleansing No -Anesthetic Used 5% Lidocaine Gel #5 L wrist -Combined with other wound No No No -Current Size (cm) - Length 1.1 0.5 0.4 -Current Size (cm) - Width 3.2 2.1 1.6 -Current Size (cm) - Depth 0.1 0.3 0.1 -Total Square Cm 3.52 1.05 0.64 -Date of Last Picture (Recall this 04/23/22 field) -Photo Taken Yes Yes Yes -Epithelialization None Present -Tunneling No No No -Undermining/Tunneling No No No -Circular Undermining No No No -Change in Wound Grade/Stage No -Exudate Amt None Present Medium Small -Exudate Type Serosanguineous Serosanguineous -Wound Margin Distinct, Distinct, Distinct, Outline Outline Outline Attached Attached Attached -Granulation Amt None Present (0 Medium (34-66%) None Present (0 %) %) -Granulation Quality [place] -Slough/Fibrin Yes Yes Yes -Necrosis Amt Large (67-100%) Large (67-100%) Large (67-100%) -Necrotic Tissue Type Adherent Slough Adherent Slough Adherent Slough -Structure Exposed N/A N/A -Texture (Kirstie-wound Skin Appearance) No Abnormality, Assessed Assessed, Assessed Scarring -Moisture (Kirstie-wound Skin Appearance) Assessed,Dry/ Dry/Scaly Assessed Scaly -Color (Kirstie-wound Skin Appearance) No Abnormality, Assessed Assessed Assessed -Temperature (Kirstie-wound Skin No Abnormality No Abnormality No Abnormality Appearance) (Pt Warm) (Pt Warm) (Pt Warm) -Tenderness on Palpation (Kirstie-wound No No No Skin Appearance) -Ulcer Cleansing Rinsed/ Wound Cleanser Soap and Water Irrigated with Saline -Foul Odor after Cleansing No No Yes, Due to Product Use -Anesthetic Used 4% Lidocaine 5% Lidocaine 5% Lidocaine Solution,5% Gel Gel Lidocaine Gel -Wound Comment(s) scabbed #3 R Ankle -Combined with other wound No No No -Current Size (cm) - Length 8 1.8 1.5 -Current Size (cm) - Width 2 1 1 -Current Size (cm) - Depth 0.1 0.1 0.1 -Total Square Cm 16 1.8 1.5 -Date of Last Picture (Recall this 04/09/22 04/23/22 field) -Photo Taken Yes Yes Yes -Epithelialization None Present -Tunneling No No No -Undermining/Tunneling No No No -Circular Undermining No No No -Change in Wound Grade/Stage No -Exudate Amt None Present Medium None Present -Exudate Type Serosanguineous -Wound Margin Distinct, Distinct, Distinct, Outline Outline Outline Attached Attached Attached -Granulation Amt None Present (0 Medium (34-66%) None Present (0 %) %) -Granulation Quality N/A [place] -Slough/Fibrin Yes Yes Yes -Necrosis Amt Large (67-100%) Large (67-100%) Large (67-100%) -Necrotic Tissue Type Eschar Adherent Slough Eschar -Structure Exposed N/A N/A -Texture (Kirstie-wound Skin Appearance) No Abnormality, Assessed Assessed, Assessed Scarring -Moisture (Kirstie-wound Skin Appearance) Assessed,Dry/ Dry/Scaly Assessed Scaly -Color (Kirstie-wound Skin Appearance) No Abnormality, Assessed Assessed Assessed -Temperature (Kirstie-wound Skin No Abnormality No Abnormality No Abnormality Appearance) (Pt Warm) (Pt Warm) (Pt Warm) -Tenderness on Palpation (Kirstie-wound No No No Skin Appearance) -Ulcer Cleansing Rinsed/ Wound Cleanser Soap and Water Irrigated with Saline -Foul Odor after Cleansing No No No -Anesthetic Used 4% Lidocaine 5% Lidocaine 5% Lidocaine Solution,5% Gel Gel Lidocaine Gel -Wound Comment(s) scabbed Lower Limb Edema Present No Yes Right Calf (cm) 30 31 31 Right Ankle (cm) 20.5 20.6 1.5 Left Calf (cm) 30.5 30.2 30.5 Left Ankle (cm) 19.4 19 1.5 04/30/22 13:54 Wound Center Nurse 1 #4 L ankle -Combined with other wound -Current Size (cm) - Length -Current Size (cm) - Width -Current Size (cm) - Depth -Total Square Cm -Date of Last Picture (Recall this field) -Photo Taken -Epithelialization -Tunneling -Undermining/Tunneling -Circular Undermining -Change in Wound Grade/Stage -Exudate Amt -Exudate Type -Wound Margin -Granulation Amt -Granulation Quality -Slough/Fibrin -Necrosis Amt -Necrotic Tissue Type -Structure Exposed -Texture (Kirstie-wound Skin Appearance) -Moisture (Kirstie-wound Skin Appearance) -Color (Kirstie-wound Skin Appearance) -Temperature (Kirstie-wound Skin Appearance) -Tenderness on Palpation (Kirstie-wound Skin Appearance) -Ulcer Cleansing -Foul Odor after Cleansing -Anesthetic Used -Wound Comment(s) #2 R ankle cluster -Combined with other wound -Current Size (cm) - Length -Current Size (cm) - Width -Current Size (cm) - Depth -Total Square Cm -Date of Last Picture (Recall this field) -Photo Taken -Epithelialization -Tunneling -Undermining/Tunneling -Circular Undermining -Change in Wound Grade/Stage -Exudate Amt -Exudate Type -Wound Margin -Granulation Amt -Granulation Quality -Slough/Fibrin -Necrosis Amt -Necrotic Tissue Type -Structure Exposed -Texture (Ikrstie-wound Skin Appearance) -Moisture (Kirstie-wound Skin Appearance) -Color (Kirstie-wound Skin Appearance) -Temperature (Kirstie-wound Skin Appearance) -Tenderness on Palpation (Kirstie-wound Skin Appearance) -Ulcer Cleansing -Foul Odor after Cleansing -Anesthetic Used -Wound Comment(s) #1 R lateral foot -Combined with other wound -Current Size (cm) - Length -Current Size (cm) - Width -Current Size (cm) - Depth -Total Square Cm -Date of Last Picture (Recall this field) -Photo Taken -Tunneling -Undermining/Tunneling -Circular Undermining -Change in Wound Grade/Stage -Exudate Amt -Wound Margin -Granulation Amt -Granulation Quality -Slough/Fibrin -Necrosis Amt -Necrotic Tissue Type -Structure Exposed -Texture (Kirstie-wound Skin Appearance) -Moisture (Kirstie-wound Skin Appearance) -Color (Kirstie-wound Skin Appearance) -Temperature (Kirstie-wound Skin Appearance) -Tenderness on Palpation (Kirstie-wound Skin Appearance) -Ulcer Cleansing -Foul Odor after Cleansing -Anesthetic Used -Wound Comment(s) #10 Left Dorsal -Combined with other wound No -Current Size (cm) - Length 0.5 -Current Size (cm) - Width 0.6 -Current Size (cm) - Depth 0.1 -Total Square Cm 0.30 -Photo Taken No -Tunneling No -Undermining/Tunneling No -Circular Undermining No -Change in Wound Grade/Stage No -Exudate Amt Medium -Exudate Type Serosanguineous -Wound Margin Distinct, Outline Attached -Granulation Amt None Present (0 %) -Granulation Quality N/A -Slough/Fibrin Yes -Necrosis Amt Large (67-100%) -Necrotic Tissue Type Adherent Slough -Structure Exposed N/A -Texture (Kirstie-wound Skin Appearance) No Abnormality, Assessed -Moisture (Kirstie-wound Skin Appearance) No Abnormality, Assessed -Color (Kirstie-wound Skin Appearance) No Abnormality, Assessed -Temperature (Kirstie-wound Skin No Abnormality Appearance) (Pt Warm) -Tenderness on Palpation (Kirstie-wound No Skin Appearance) -Ulcer Cleansing Rinsed/ Irrigated with Saline -Foul Odor after Cleansing No -Anesthetic Used 5% Lidocaine Gel #9 Right Achilles -Combined with other wound No -Current Size (cm) - Length 0.5 -Current Size (cm) - Width 0.4 -Current Size (cm) - Depth 0.1 -Total Square Cm 0.20 -Date of Last Picture (Recall this field) -Photo Taken Yes -Epithelialization -Tunneling No -Undermining/Tunneling No -Circular Undermining No -Change in Wound Grade/Stage No -Exudate Amt None Present -Wound Margin Distinct, Outline Attached -Granulation Amt None Present (0 %) -Granulation Quality N/A -Slough/Fibrin Yes -Necrosis Amt None Present (0 %) -Necrotic Tissue Type Adherent Slough -Structure Exposed N/A -Texture (Kirstie-wound Skin Appearance) No Abnormality, Assessed -Moisture (Kirstie-wound Skin Appearance) No Abnormality, Assessed -Color (Kirstie-wound Skin Appearance) No Abnormality, Assessed -Temperature (Kirstie-wound Skin No Abnormality Appearance) (Pt Warm) -Tenderness on Palpation (Kirstie-wound No Skin Appearance) -Ulcer Cleansing Rinsed/ Irrigated with Saline -Foul Odor after Cleansing No -Anesthetic Used 5% Lidocaine Gel -Wound Comment(s) scabbed #8 Right Lat Foot -Combined with other wound No -Current Size (cm) - Length 1.2 -Current Size (cm) - Width 0.6 -Current Size (cm) - Depth 0.1 -Total Square Cm 0.72 -Date of Last Picture (Recall this field) -Photo Taken Yes -Tunneling No -Undermining/Tunneling No -Circular Undermining No -Change in Wound Grade/Stage No -Exudate Amt Medium -Exudate Type Serosanguineous -Wound Margin Distinct, Outline Attached -Granulation Amt None Present (0 %) -Granulation Quality N/A -Slough/Fibrin Yes -Necrosis Amt Large (67-100%) -Necrotic Tissue Type Adherent Slough -Structure Exposed N/A -Texture (Kirstie-wound Skin Appearance) No Abnormality, Assessed -Moisture (Kirstie-wound Skin Appearance) No Abnormality, Assessed -Color (Kirstie-wound Skin Appearance) No Abnormality, Assessed -Temperature (Kirstie-wound Skin No Abnormality Appearance) (Pt Warm) -Tenderness on Palpation (Kirstie-wound No Skin Appearance) -Ulcer Cleansing Rinsed/ Irrigated with Saline -Foul Odor after Cleansing No -Anesthetic Used 5% Lidocaine Gel #7 Right 1st Toe -Combined with other wound No -Current Size (cm) - Length 0.4 -Current Size (cm) - Width 0.6 -Current Size (cm) - Depth 0.1 -Total Square Cm 0.24 -Date of Last Picture (Recall this field) -Photo Taken Yes -Epithelialization -Tunneling No -Undermining/Tunneling No -Circular Undermining No -Change in Wound Grade/Stage No -Exudate Amt None Present -Wound Margin Distinct, Outline Attached -Granulation Amt None Present (0 %) -Granulation Quality N/A -Slough/Fibrin Yes -Necrosis Amt Large (67-100%) -Necrotic Tissue Type Adherent Slough -Structure Exposed N/A -Texture (Kirstie-wound Skin Appearance) No Abnormality, Assessed -Moisture (Kirstie-wound Skin Appearance) No Abnormality, Assessed -Color (Kirstie-wound Skin Appearance) No Abnormality, Assessed -Temperature (Kirstie-wound Skin No Abnormality Appearance) (Pt Warm) -Tenderness on Palpation (Kirstie-wound No Skin Appearance) -Ulcer Cleansing Rinsed/ Irrigated with Saline -Foul Odor after Cleansing No -Anesthetic Used 5% Lidocaine Gel #6 R Dorsal -Combined with other wound No -Combined with (Name of Wound-Exactly right ankle as it is documented) -Current Size (cm) - Length -Current Size (cm) - Width -Current Size (cm) - Depth -Total Square Cm -Date of Last Picture (Recall this field) -Photo Taken -Epithelialization -Tunneling -Undermining/Tunneling -Circular Undermining -Exudate Amt -Exudate Type -Wound Margin -Granulation Amt -Granulation Quality -Slough/Fibrin -Necrosis Amt -Necrotic Tissue Type -Texture (Kirstie-wound Skin Appearance) -Moisture (Kirstie-wound Skin Appearance) -Color (Kirstie-wound Skin Appearance) -Temperature (Kirstie-wound Skin Appearance) -Tenderness on Palpation (Kirstie-wound Skin Appearance) -Ulcer Cleansing -Foul Odor after Cleansing -Anesthetic Used #5 L wrist -Combined with other wound No -Current Size (cm) - Length 0.4 -Current Size (cm) - Width 0.7 -Current Size (cm) - Depth 0.1 -Total Square Cm 0.28 -Date of Last Picture (Recall this field) -Photo Taken No -Epithelialization -Tunneling No -Undermining/Tunneling No -Circular Undermining No -Change in Wound Grade/Stage No -Exudate Amt None Present -Exudate Type -Wound Margin -Granulation Amt None Present (0 %) -Granulation Quality N/A -Slough/Fibrin No -Necrosis Amt None Present (0 %) -Necrotic Tissue Type -Structure Exposed N/A -Texture (Kirstie-wound Skin Appearance) No Abnormality, Assessed -Moisture (Kirstie-wound Skin Appearance) No Abnormality, Assessed -Color (Kirstie-wound Skin Appearance) No Abnormality, Assessed -Temperature (Kirstie-wound Skin No Abnormality Appearance) (Pt Warm) -Tenderness on Palpation (Kirstie-wound No Skin Appearance) -Ulcer Cleansing Rinsed/ Irrigated with Saline -Foul Odor after Cleansing No -Anesthetic Used 5% Lidocaine Gel -Wound Comment(s) #3 R Ankle -Combined with other wound No -Current Size (cm) - Length 6.2 -Current Size (cm) - Width 2 -Current Size (cm) - Depth 0.1 -Total Square Cm 12.4 -Date of Last Picture (Recall this 04/30/22 field) -Photo Taken Yes -Epithelialization -Tunneling No -Undermining/Tunneling No -Circular Undermining No -Change in Wound Grade/Stage No -Exudate Amt Large -Exudate Type Yellow/Green -Wound Margin Distinct, Outline Attached -Granulation Amt None Present (0 %) -Granulation Quality N/A -Slough/Fibrin Yes -Necrosis Amt Large (67-100%) -Necrotic Tissue Type Adherent Slough -Structure Exposed N/A -Texture (Kirstie-wound Skin Appearance) No Abnormality, Assessed -Moisture (Kirstie-wound Skin Appearance) No Abnormality, Assessed -Color (Kirstie-wound Skin Appearance) No Abnormality, Assessed -Temperature (Kirstie-wound Skin No Abnormality Appearance) (Pt Warm) -Tenderness on Palpation (Kirstie-wound No Skin Appearance) -Ulcer Cleansing Rinsed/ Irrigated with Saline -Foul Odor after Cleansing No -Anesthetic Used 5% Lidocaine Gel -Wound Comment(s) Lower Limb Edema Present Right Calf (cm) Right Ankle (cm) Left Calf (cm) Left Ankle (cm) WC - Nurse 2 - General Ulcer CM Notes Start: 04/09/22 13:29 Freq: Status: Active Protocol: Activity Type Activity Date Activity User E-sign Co-sign Detail Recorded Client Recorded Date Recorded By Document 04/09/22 15:12 PL [id number] 04/09/22 15:29 PL Document 04/16/22 15:08 PL [id number] 04/16/22 15:18 PL Document 04/23/22 15:17 PL [id number] 04/23/22 15:26 PL 04/09/22 04/16/22 04/23/22 15:12 15:08 15:17 Wound Center Nurse 2 #4 L ankle -Time 13:35 14:24 -Correct Patient Yes Yes -Correct Side, Site, Position Yes Yes -Correct Procedure Yes Yes -Procedure Performed Yes Yes No -Type of Procedure Debridement Debridement -Clinical Debridement Subcutaneous Subcutaneous -Tissue Removed Subcutaneous Subcutaneous -Post Debridement (cm) - Length 4.8 4.0 -Post Debridement (cm) - Width 1.7 4.5 -Post Debridement (cm) - Depth 0.2 0.1 -Total Square (Post) (cm) 8.16 18.00 -Area of Debridement (cm) - Length 4.8 4.0 -Area of Debridement (cm) - Width 1.7 4.5 -Total Square (Area) (cm) 8.16 18.00 -Tunneling No No -Undermining/Tunneling No No -Circular Undermining No No -Wound/Ulcer Outcome Not Healed Not Healed Healed- Epithelialized -Ulcer Cleansing Rinsed/ Rinsed/ Irrigated with Irrigated with Saline Saline -Foul Odor after Cleansing No No -Bioengineered Tissue No No -Bleeding Controlled with Pressure -Treatment Response Procedure Tolerated Well -Debridement - Subq, 1st 20sq cm No No #2 R ankle cluster -Time 14:24 -Correct Patient Yes -Correct Side, Site, Position Yes -Correct Procedure Yes -Procedure Performed Yes No -Type of Procedure Debridement -Clinical Debridement Subcutaneous -Tissue Removed Subcutaneous -Post Debridement (cm) - Length 1.8 -Post Debridement (cm) - Width 3.0 -Post Debridement (cm) - Depth 0.1 -Total Square (Post) (cm) 5.40 -Area of Debridement (cm) - Length 1.8 -Area of Debridement (cm) - Width 3.0 -Total Square (Area) (cm) 5.40 -Tunneling No -Undermining/Tunneling No -Circular Undermining No -Wound/Ulcer Outcome Not Healed Healed- Epithelialized -Ulcer Cleansing Rinsed/ Irrigated with Saline -Foul Odor after Cleansing No -Bioengineered Tissue No -Bleeding Controlled with Pressure -Treatment Response Procedure Tolerated Well -Debridement - Subq, 1st 20sq cm No #10 Left Dorsal -Time 14:25 -Correct Patient Yes -Correct Side, Site, Position Yes -Correct Procedure Yes -Procedure Performed Yes -Type of Procedure Debridement -Clinical Debridement Subcutaneous -Tissue Removed Subcutaneous -Post Debridement (cm) - Length 0.7 -Post Debridement (cm) - Width 0.8 -Post Debridement (cm) - Depth 0.1 -Total Square (Post) (cm) 0.56 -Area of Debridement (cm) - Length 0.7 -Area of Debridement (cm) - Width 0.8 -Total Square (Area) (cm) 0.56 -Tunneling No -Undermining/Tunneling No -Circular Undermining No -Wound/Ulcer Outcome Not Healed -Ulcer Cleansing Rinsed/ Irrigated with Saline -Foul Odor after Cleansing No -Bioengineered Tissue No -Bleeding Controlled with Pressure -Treatment Response Procedure Tolerated Well -Debridement - Subq, 1st 20sq cm Yes #9 Right Achilles -Time 14:24 14:25 -Correct Patient Yes Yes -Correct Side, Site, Position Yes Yes -Correct Procedure Yes Yes -Procedure Performed Yes Yes -Type of Procedure Debridement Debridement -Clinical Debridement Subcutaneous Subcutaneous -Tissue Removed Subcutaneous Subcutaneous -Post Debridement (cm) - Length 0.3 1.5 -Post Debridement (cm) - Width 0.5 0.8 -Post Debridement (cm) - Depth 0.1 0.1 -Total Square (Post) (cm) 0.15 1.20 -Area of Debridement (cm) - Length 0.3 1.5 -Area of Debridement (cm) - Width 0.5 0.8 -Total Square (Area) (cm) 0.15 1.20 -Tunneling No No -Undermining/Tunneling No No -Circular Undermining No No -Wound/Ulcer Outcome Not Healed Not Healed -Ulcer Cleansing Rinsed/ Rinsed/ Irrigated with Irrigated with Saline Saline -Foul Odor after Cleansing No No -Bioengineered Tissue No No -Bleeding Controlled with Pressure Pressure -Treatment Response Procedure Procedure Tolerated Well Tolerated Well -Debridement - Subq, 1st 20sq cm Yes No -Debridement, SubQ, ea addt'l 20sq cm 1 or part thereof #8 Right Lat Foot -Time 14:24 14:25 -Correct Patient Yes Yes -Correct Side, Site, Position Yes Yes -Correct Procedure Yes Yes -Procedure Performed Yes Yes -Type of Procedure Debridement Debridement -Clinical Debridement Subcutaneous Subcutaneous -Tissue Removed Subcutaneous Subcutaneous -Post Debridement (cm) - Length 2.0 2.0 -Post Debridement (cm) - Width 1.4 1.4 -Post Debridement (cm) - Depth 0.1 0.1 -Total Square (Post) (cm) 2.80 2.80 -Area of Debridement (cm) - Length 2.0 2.0 -Area of Debridement (cm) - Width 1.4 1.4 -Total Square (Area) (cm) 2.80 2.80 -Tunneling No No -Undermining/Tunneling No No -Circular Undermining No No -Wound/Ulcer Outcome Not Healed Not Healed -Ulcer Cleansing Rinsed/ Rinsed/ Irrigated with Irrigated with Saline Saline -Foul Odor after Cleansing No No -Bioengineered Tissue No No -Bleeding Controlled with Pressure Pressure -Treatment Response Procedure Procedure Tolerated Well Tolerated Well -Debridement - Subq, 1st 20sq cm No No #7 Right 1st Toe -Time 14:24 14:25 -Correct Patient Yes Yes -Correct Side, Site, Position Yes Yes -Correct Procedure Yes Yes -Procedure Performed Yes Yes -Type of Procedure Debridement Debridement -Clinical Debridement Subcutaneous Subcutaneous -Tissue Removed Subcutaneous Subcutaneous -Post Debridement (cm) - Length 1.0 0.5 -Post Debridement (cm) - Width 2.0 1.5 -Post Debridement (cm) - Depth 0.1 0.1 -Total Square (Post) (cm) 2.00 0.75 -Area of Debridement (cm) - Length 1.0 0.5 -Area of Debridement (cm) - Width 2.0 1.5 -Total Square (Area) (cm) 2.00 0.75 -Tunneling No No -Undermining/Tunneling No No -Circular Undermining No No -Wound/Ulcer Outcome Not Healed Not Healed -Ulcer Cleansing Rinsed/ Rinsed/ Irrigated with Irrigated with Saline Saline -Foul Odor after Cleansing No No -Bioengineered Tissue No -Bleeding Controlled with Pressure Pressure -Treatment Response Procedure Procedure Tolerated Well Tolerated Well -Debridement - Subq, 1st 20sq cm No No #6 R Dorsal -Time 14:24 14:25 -Correct Patient Yes Yes -Correct Side, Site, Position Yes Yes -Correct Procedure Yes Yes -Procedure Performed Yes Yes -Type of Procedure Debridement Debridement -Clinical Debridement Subcutaneous Subcutaneous -Tissue Removed Subcutaneous Subcutaneous -Post Debridement (cm) - Length 1.5 1.2 -Post Debridement (cm) - Width 1.4 1.0 -Post Debridement (cm) - Depth 0.1 0.1 -Total Square (Post) (cm) 2.10 1.20 -Area of Debridement (cm) - Length 1.5 1.2 -Area of Debridement (cm) - Width 1.4 1.0 -Total Square (Area) (cm) 2.10 1.20 -Tunneling No No -Undermining/Tunneling No No -Circular Undermining No No -Wound/Ulcer Outcome Not Healed Not Healed -Ulcer Cleansing Rinsed/ Rinsed/ Irrigated with Irrigated with Saline Saline -Foul Odor after Cleansing No No -Bioengineered Tissue No No -Bleeding Controlled with Pressure Pressure -Treatment Response Procedure Procedure Tolerated Well Tolerated Well -Debridement - Subq, 1st 20sq cm No No #5 L wrist -Time 13:35 14:24 14:25 -Correct Patient Yes Yes Yes -Correct Side, Site, Position Yes Yes Yes -Correct Procedure Yes Yes Yes -Procedure Performed Yes Yes Yes -Type of Procedure Debridement Debridement Debridement -Clinical Debridement Subcutaneous Subcutaneous Subcutaneous -Tissue Removed Subcutaneous Subcutaneous Subcutaneous -Post Debridement (cm) - Length 1.2 0.9 0.4 -Post Debridement (cm) - Width 3.8 2.1 1.6 -Post Debridement (cm) - Depth 0.7 0.4 0.1 -Total Square (Post) (cm) 4.56 1.89 0.64 -Area of Debridement (cm) - Length 1.2 0.9 0.4 -Area of Debridement (cm) - Width 3.8 2.1 1.6 -Total Square (Area) (cm) 4.56 1.89 0.64 -Tunneling No No No -Undermining/Tunneling No No No -Circular Undermining No No No -Wound/Ulcer Outcome Not Healed Not Healed Not Healed -Ulcer Cleansing Rinsed/ Rinsed/ Rinsed/ Irrigated with Irrigated with Irrigated with Saline Saline Saline -Foul Odor after Cleansing No No No -Bioengineered Tissue No No No -Bleeding Controlled with Pressure Pressure Pressure -Treatment Response Procedure Procedure Procedure Tolerated Well Tolerated Well Tolerated Well -Debridement - Subq, 1st 20sq cm Yes No No -Debridement, SubQ, ea addt'l 20sq cm 2 or part thereof #3 R Ankle -Time 14:24 14:25 -Correct Patient Yes Yes -Correct Side, Site, Position Yes Yes -Correct Procedure Yes Yes -Procedure Performed Yes Yes -Type of Procedure Debridement Debridement -Clinical Debridement Subcutaneous Subcutaneous -Tissue Removed Subcutaneous Subcutaneous -Post Debridement (cm) - Length 1.9 1.8 -Post Debridement (cm) - Width 1.3 2.5 -Post Debridement (cm) - Depth 0.1 0.1 -Total Square (Post) (cm) 2.47 4.50 -Area of Debridement (cm) - Length 1.9 1.8 -Area of Debridement (cm) - Width 1.3 2.5 -Total Square (Area) (cm) 2.47 4.50 -Tunneling No No -Undermining/Tunneling No No -Circular Undermining No No -Wound/Ulcer Outcome Not Healed Not Healed -Ulcer Cleansing Rinsed/ Rinsed/ Irrigated with Irrigated with Saline Saline -Foul Odor after Cleansing No No -Bioengineered Tissue No No -Bleeding Controlled with Pressure Pressure -Treatment Response Procedure Procedure Tolerated Well Tolerated Well -Debridement - Subq, 1st 20sq cm No No Pain Scale: 0-10 Numeric Is Patient Pain Free? Yes Yes Yes - Nurse 3 - General Ulcer D/C NN Start: 04/09/22 13:29 Freq: Status: Active Protocol: Activity Type Activity Date Activity User E-sign Co-sign Detail Recorded Client Recorded Date Recorded By Document 04/09/22 15:05 ID [id number] 04/09/22 15:16 ID Document 04/16/22 14:59 AK [id number] 04/16/22 15:01 AK Document 04/23/22 14:53 [facility] [id number] 04/23/22 14:57 [facility] 04/09/22 04/16/22 04/23/22 15:05 14:59 14:53 Wound Care Center Nurse 3 #4 L ankle -Ulcer Cleansing Soap and Water Rinsed/ Rinsed/ Irrigated with Irrigated with Saline Saline -Foul Odor after Cleansing No No -Negative Pressure Wound Therapy N/A -Other Dressing santyl ordered. hydrogel SANTYL hydrogel placed today on wounds. -Primary Dressing Covered/Secured with Dry Gauze & Dry Gauze & Dry Gauze & Roll Gauze, Roll Gauze, Roll Gauze, Secured with Secured with Secured with Tape Tape Tape -Other Covering DRSG PER ID RN #2 R ankle cluster -Ulcer Cleansing Soap and Water Rinsed/ Rinsed/ Irrigated with Irrigated with Saline Saline -Foul Odor after Cleansing No No -Negative Pressure Wound Therapy N/A -Other Dressing hydrogel SANTYL -Primary Dressing Covered/Secured with Dry Gauze & Dry Gauze & Dry Gauze & Roll Gauze, Roll Gauze, Roll Gauze, Secured with Secured with Secured with Tape Tape Tape -Other Covering DRSG PER MT RN #1 R lateral foot -Ulcer Cleansing Soap and Water -Primary Dressing Covered/Secured with Dry Gauze & Roll Gauze, Secured with Tape #9 Right Achilles -Ulcer Cleansing Rinsed/ Irrigated with Saline -Foul Odor after Cleansing No -Other Dressing SANTYL -Primary Dressing Covered/Secured with Dry Gauze & Roll Gauze, Secured with Tape -Other Covering DRSG PER MT RN #8 Right Lat Foot -Ulcer Cleansing Rinsed/ Irrigated with Saline -Foul Odor after Cleansing No -Other Dressing SANTYL -Primary Dressing Covered/Secured with Dry Gauze & Roll Gauze, Secured with Tape -Other Covering DRSG PER ID RN #7 Right 1st Toe -Ulcer Cleansing Rinsed/ Irrigated with Saline -Foul Odor after Cleansing No -Other Dressing SANTYL -Primary Dressing Covered/Secured with Dry Gauze & Roll Gauze, Secured with Tape -Other Covering DRSG PER ID RN #6 R Dorsal -Ulcer Cleansing Rinsed/ Irrigated with Saline -Foul Odor after Cleansing No -Other Dressing SANTYL -Primary Dressing Covered/Secured with Dry Gauze & Roll Gauze, Secured with Tape -Other Covering DRSG PER MT #5 L wrist -Ulcer Cleansing Rinsed/ Rinsed/ Irrigated with Irrigated with Saline Saline -Foul Odor after Cleansing No No -Negative Pressure Wound Therapy N/A -Primary Dressing Applied Promogran Promogran C Hydrogel ($) Marcela Matter Marcela Matter, Mepilex Border -Other Dressing DRSG PER ID RN -Primary Dressing Covered/Secured with Dry Gauze & Dry Gauze & Roll Gauze, Roll Gauze, Secured with Secured with Tape Tape -Mepilex Border 1 -Promogran Marcela Matter 1 1 #3 R Ankle -Ulcer Cleansing Soap and Water Rinsed/ Rinsed/ Irrigated with Irrigated with Saline Saline -Foul Odor after Cleansing No No -Negative Pressure Wound Therapy N/A -Other Dressing hydrogel SANTYL -Primary Dressing Covered/Secured with Dry Gauze & Dry Gauze & Dry Gauze & Roll Gauze, Roll Gauze, Roll Gauze, Secured with Secured with Secured with Tape Tape Tape -Other Covering DRSG PER MT RN Right -Lotion applied to leg before No compression wrap -Tubular Bandage Single Layer Single Layer Single Layer -Size of Tubigrip Used Size D Size E Size D -Size D ($) 1 1 -Size E ($) 1 Left -Tubular Bandage Single Layer Single Layer Single Layer -Size of Tubigrip Used Size D Size E Size D -Size D ($) 1 1 -Size E ($) 1 Pain Scale: 0-10 Numeric Is Patient Pain Free? Yes Yes Yes WC - Visit Discharge Discharge Condition Stable Stable Ambulatory Status Ambulatory Ambulatory Transportation Private Auto Private Auto Medication Reconcilliation completed & Yes provided to patient/care provider Clinical Summary of Care Provided Yes Additional Wound Wound debrided: R ankle Laterality: Right Type of Debridement: Excisional debridement Anesthesia Used: 5% Lidocaine Gel and Cetacaine Depth: Down to and including healthy tissue and in the subcutaneous layer Percentage of wound debrided: 100 Instrument Used: 5mm curette, #10 blade and Forceps Tissue Removed: adherent slough/scab, devitalized tissue Severity: Fat Layer Exposed Amount of bleeding with debridement: Mild Bleeding Controlled with: Pressure Patient tolerated procedure: Patient tolerated procedure well Additional Wound Wound debrided: R dorsal foot Laterality: Right Type of Debridement: Excisional debridement Anesthesia Used: 5% Lidocaine Gel and Cetacaine Depth: Down to and including healthy tissue and in the subcutaneous layer Percentage of wound debrided: 100 Instrument Used: 5mm curette Tissue Removed: adherent slough/scab, devitalized tissue Severity: Fat Layer Exposed Amount of bleeding with debridement: Mild Bleeding Controlled with: Pressure Patient tolerated procedure: Patient tolerated procedure well Additional Wound Wound debrided: L wrist Laterality: Left Type of Debridement: Excisional debridement Anesthesia Used: 5% Lidocaine Gel and Cetacaine Depth: Down to and including healthy tissue and in the subcutaneous layer Percentage of wound debrided: 100 Instrument Used: 5mm curette Tissue Removed: adherent slough/scab, devitalized tissue Severity: Fat Layer Exposed Amount of bleeding with debridement: Mild Bleeding Controlled with: Pressure Patient tolerated procedure: Patient tolerated procedure well Additional Wound Wound debrided: L dorsal foot Laterality: Left Type of Debridement: Excisional debridement Anesthesia Used: 5% Lidocaine Gel and Cetacaine Depth: Down to and including healthy tissue and in the subcutaneous layer Percentage of wound debrided: 100 Instrument Used: 5mm curette Tissue Removed: adherent slough/scab, devitalized tissue Severity: Fat Layer Exposed Amount of bleeding with debridement: Mild Bleeding Controlled with: Pressure Additional Wound Wound debrided: R great toe Laterality: Right Type of Debridement: Excisional debridement Anesthesia Used: 5% Lidocaine Gel Depth: Down to and including healthy tissue Instrument Used: 5mm curette Tissue Removed: slough, devitalized tissue Bleeding Controlled with: Pressure Patient tolerated procedure: Patient tolerated procedure well Assessment/Plan Assessment/Plan (1) 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 All of wounds with improved size from last week. All wound bases had pink granulation tissue and good bleeding. Continue santyl to all lower extremity wounds, cover with DSD/kerlix and apply tubigrips for compression. If he runs out of Santly this week, apply collagen hydrogel to all wounds until Tuesday. Anticipate switching to promogran next week. Collagen hydrogel to L wrist wound. Silicone-bordered dressing for secondary. Change dressings daily or more often as needed to keep clean and dry. Return to clinic in 1 week or sooner as needed.
[2022-05-07 10:14] VITALS: BP 129/66; PULSE 67; RESP 16; TEMP 35.9
--- NOTE | 2022-05-07 11:56 | PN.PCM_ITS ---
History of Present Illness Date of Service: 05/07/22 Chief Complaint: Left wrist wound Multiple bilateral lower extremity wounds History of Wound: Patient is new to [facility] but known to me from the vascular surgery clinic. 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 Patient was understandably quite ill following this and hospitalized for some time during which he had significant BLE edema at which point the wounds began to appear. They were overall stable for some time, and then he was hospitalized a few weeks ago for pneumonia, had increased BLE edema again, and wounds worsened/new ones appeared. Since then, he feels they are improved in appearance. The wrist wound appeared during the initial hospitalization for AAA, at that time he describes it initially as a hematoma which eventually developed into this chronic wound. Last week, he had significant erythema and pain in his RLE and was started on antibiotics. Venous duplex was also obtained to r/o DVT and this was negative. Erythema did improve with antibiotics. Patient still has pain in bilateral feet, worse right than left; bilateral feet/ankles are intermittently hypersensitive to touch. He notes continued mild BLE edema. He does not currently wear compression. Subjective Subjective Paitent has been applying Santyl and changing dressings for his BLE wounds as directed. He just ran out of Santyl and is not able to get it for an affordable mann. He has been applying hydrogel to L wrist wound as directed. No new/worsening pain, erythema, swelling, drainage, foul odor, F/C, N/V. Objective Data Objective Data Vital Signs: Vital Signs Temp Pulse Resp BP O2 Del Method O2 Flow Rate 96.6 F L 67 16 129/66 H Room Air 2 05/07/22 10:14 05/07/22 10:14 05/07/22 10:14 05/07/22 10:14 05/07/22 10:14 04/16/22 14:11 Oxygen Flow Rate (L/min) 2 Oxygen Delivery Method Room Air Charges/Coding Wound Center CF Procedures [id number]: 68511 RMVL DEVITAL TIS ADDL 20CM/< Multi Select Codes Wound Center CF Procedures [id number]: [id number] RMVL DEVITAL TIS ADDL 20CM/< Physical Exam Const alert, oriented x3 and no apparent distress General Appearance: cooperative, comfortable and well developed HEENT normocephalic, head/scalp atraumatic, hearing grossly normal bilaterally, external ears normal and external nose normal Eyes EOMs intact bilaterally General Eye: normal appearance of both eyes Neck full ROM General: normal visual inspection and trachea midline Resp normal respiratory effort, no retractions and no use of accessory muscles Effort and Inspection: able to speak in complete sentences and symmetric chest movement Cardio regular rate and regular rhythm Peripheral Pulses: brachial pulses present and radial pulses present Extremity Extremity Narrative: Mild bilateral lower extremity edema, right worse than left. Patient had sensitivity to light touch, especially on R foot. Skin Wounds: wounds noted Wound Narrative: All LLE wounds have healed. Only 4 remain on RLE. [place], granulation tissue at the wound beds. Good bleeding. No significant erythema, foul odor, drainage noted. Left wrist wound with pink granulation tissue at base, minimal slough. Significantly decreased in size from last week. 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 Laterality: Right Type of Debridement: Excisional debridement Anesthesia Used: 5% Lidocaine Gel and Cetacaine Depth: Down to and including healthy tissue and in the subcutaneous layer Percentage of wound debrided: 100 Instrument Used: 5mm curette Tissue Removed: adherent slough/scab, devitalized tissue Severity: Fat Layer Exposed Amount of bleeding with debridement: Mild Bleeding Controlled with: Pressure Patient tolerated procedure: Patient tolerated procedure well Post-Debridement Measurements and Additional Note: Post-Debridement Measurements/Treatment - Nurse 1 - General Ulcer Assessment Start: 04/09/22 13:29 Freq: Status: Active Protocol: [email or web address] Activity Type Activity Date Activity User E-sign Co-sign Detail Recorded Client Recorded Date Recorded By Document 04/09/22 13:30 [place] [id number] 04/09/22 13:42 [place] Document 04/16/22 14:11 [place] [id number] 04/16/22 14:21 [place] Document 04/23/22 14:03 [place] [id number] 04/23/22 14:17 [place] Document 04/30/22 13:54 [place] [id number] 04/30/22 14:09 [place] Document 05/07/22 10:14 [facility] [id number] 05/07/22 10:26 BM 04/09/22 04/16/22 04/23/22 13:30 14:11 14:03 - Today's Visit Information Type of service Initial Visit Follow-up Visit Follow-up Visit (Physician/[employer] (Physician/[employer] ) ) Arrival Mode Ambulatory Ambulatory Ambulatory Transfer Assistance None None Patient Identification Verified (Name & Yes Yes Yes ) Patient Requires Transmission-Based No No No Precautions Safety Precautions NA Finger Stick Blood Sugar(mg/dl) (if 149 indicated): Blood Sugar Stated by Patient Vital Signs Temperature (97.8 F-99.1 F) 97.2 F L 97 F L Temperature Source Temporal Temporal Pulse Rate (60-100) 58 L 74 Pulse Location Monitor Monitor Respiratory Rate (12-18) 18 16 Respiratory rate source Observation Observation Oxygen Delivery Method Nasal Cannula Room Air O2 L/MIN (L/min) 2 Blood Pressure (90/60-120/80) 155/78 H 149/72 H Blood Pressure Mean (mm Hg) 103 97 Source Monitor Monitor Position Sitting Sitting Blood Pressure Location Right Arm Right Arm History Since Last Visit- (Skip if this is Patient's initial visit) Have you changed medications since your No No last visit? Any new allergies or adverse reactions No No Had a fall/change in ADL's that may No No increase risk of falls Signs or symptoms of abuse and/or No No neglect since last visit Have you been in the hospital since your No No last visit? Has dressing in place as prescribed Yes Yes Has compression in place as prescribed No No Has offloadiing in place as prescribed No N/A Experienced any changes in pain level or No No management Left Footwear Regular Shoe Regular Shoe Right Footwear Regular Shoe Regular Shoe Pain Scale: 0-10 Numeric Is Patient Pain Free? No Yes Yes 04/30/22 05/07/22 13:54 10:14 - Today's Visit Information Type of service Follow-up Visit Initial Visit (Physician/[employer] ) Arrival Mode Ambulatory Ambulatory Transfer Assistance None Patient Identification Verified (Name & Yes Yes ) Patient Requires Transmission-Based No No Precautions Safety Precautions NA Finger Stick Blood Sugar(mg/dl) (if indicated): Blood Sugar Vital Signs Temperature (97.8 F-99.1 F) 96.8 F L 96.6 F L Temperature Source Temporal Temporal Pulse Rate (60-100) 83 67 Pulse Location Monitor Monitor Respiratory Rate (12-18) 16 Respiratory rate source Observation Oxygen Delivery Method Room Air O2 L/MIN (L/min) Blood Pressure (90/60-120/80) 141/74 H 129/66 H Blood Pressure Mean (mm Hg) 96 87 Source Monitor Monitor Position Sitting Blood Pressure Location Left Arm History Since Last Visit- (Skip if this is Patient's initial visit) Have you changed medications since your No No last visit? Any new allergies or adverse reactions No No Had a fall/change in ADL's that may No No increase risk of falls Signs or symptoms of abuse and/or No No neglect since last visit Have you been in the hospital since your No No last visit? Has dressing in place as prescribed Yes Yes Has compression in place as prescribed N/A Yes Has offloadiing in place as prescribed N/A N/A Experienced any changes in pain level or No No management Left Footwear Regular Shoe Regular Shoe Right Footwear Regular Shoe Regular Shoe Pain Scale: 0-10 Numeric Is Patient Pain Free? Yes Yes WC - Nurse 1 - General Ulcer Measurement Start: 04/09/22 13:29 Freq: Status: Active Protocol: Activity Type Activity Date Activity User E-sign Co-sign Detail Recorded Client Recorded Date Recorded By Document 04/09/22 13:30 [place] [id number] 04/09/22 13:42 [place] Document 04/16/22 14:11 [place] [id number] 04/16/22 14:21 [place] Document 04/23/22 14:03 [place] [id number] 04/23/22 14:17 [place] Document 04/30/22 13:54 [place] [id number] 04/30/22 14:09 [place] Document 05/07/22 10:14 [facility] [id number] 05/07/22 10:26 [facility] 04/09/22 04/16/22 04/23/22 13:30 14:11 14:03 Wound Center Nurse 1 #10 Left Dorsal -Combined with other wound -Current Size (cm) - Length -Current Size (cm) - Width -Current Size (cm) - Depth -Total Square Cm -Date of Last Picture (Recall this field) -Photo Taken -Epithelialization -Tunneling -Undermining/Tunneling -Circular Undermining -Change in Wound Grade/Stage -Exudate Amt -Exudate Type -Wound Margin -Granulation Amt -Granulation Quality -Slough/Fibrin -Necrosis Amt -Necrotic Tissue Type -Structure Exposed -Texture (Kirstie-wound Skin Appearance) -Moisture (Kirstie-wound Skin Appearance) -Color (Kirstie-wound Skin Appearance) -Temperature (Kirstie-wound Skin Appearance) -Tenderness on Palpation (Kirstie-wound Skin Appearance) -Ulcer Cleansing -Foul Odor after Cleansing -Anesthetic Used #9 Right Achilles -Combined with other wound No -Current Size (cm) - Length 0 -Current Size (cm) - Width 0 -Current Size (cm) - Depth 0 -Total Square Cm 0 -Date of Last Picture (Recall this 04/23/22 field) -Photo Taken No -Epithelialization Large 67-100% -Tunneling -Undermining/Tunneling -Circular Undermining -Change in Wound Grade/Stage -Exudate Amt -Wound Margin -Granulation Amt -Granulation Quality -Slough/Fibrin -Necrosis Amt -Necrotic Tissue Type -Structure Exposed -Texture (Kirstie-wound Skin Appearance) -Moisture (Kirstie-wound Skin Appearance) -Color (Kirstie-wound Skin Appearance) -Temperature (Kirstie-wound Skin Appearance) -Tenderness on Palpation (Kirstie-wound Skin Appearance) -Ulcer Cleansing -Foul Odor after Cleansing -Anesthetic Used -Wound Comment(s) #4 L ankle -Combined with other wound No No No -Current Size (cm) - Length 4 2 0.7 -Current Size (cm) - Width 4.8 1.1 1 -Current Size (cm) - Depth 0.1 0.1 0.1 -Total Square Cm 19.2 2.2 0.7 -Date of Last Picture (Recall this 04/23/22 field) -Photo Taken Yes Yes Yes -Epithelialization None Present -Tunneling No No No -Undermining/Tunneling No No No -Circular Undermining No No No -Change in Wound Grade/Stage No -Exudate Amt None Present Medium Small -Exudate Type Serosanguineous Serosanguineous -Wound Margin Distinct, Distinct, Distinct, Outline Outline Outline Attached Attached Attached -Granulation Amt None Present (0 Medium (34-66%) Medium (34-66%) %) -Granulation Quality N/A [place] Red -Slough/Fibrin Yes Yes Yes -Necrosis Amt Large (67-100%) Medium (34-66%) Medium (34-66%) -Necrotic Tissue Type Eschar Adherent Slough Adherent Slough -Structure Exposed N/A N/A -Texture (Kirstie-wound Skin Appearance) Assessed Assessed Assessed, Scarring -Moisture (Kirstie-wound Skin Appearance) Assessed,Dry/ Assessed,Dry/ Assessed Scaly Scaly -Color (Kirstie-wound Skin Appearance) No Abnormality, Assessed Assessed Not Assessed -Temperature (Kirstie-wound Skin No Abnormality No Abnormality No Abnormality Appearance) (Pt Warm) (Pt Warm) (Pt Warm) -Tenderness on Palpation (Kirstie-wound No No No Skin Appearance) -Ulcer Cleansing Rinsed/ Wound Cleanser Soap and Water Irrigated with Saline -Foul Odor after Cleansing No No No -Anesthetic Used 4% Lidocaine 5% Lidocaine 5% Lidocaine Solution,5% Gel Gel Lidocaine Gel -Wound Comment(s) scabbed #3 R Ant Ankle -Combined with other wound No No No -Current Size (cm) - Length 8 1.8 1.5 -Current Size (cm) - Width 2 1 1 -Current Size (cm) - Depth 0.1 0.1 0.1 -Total Square Cm 16 1.8 1.5 -Date of Last Picture (Recall this 04/09/22 04/23/22 field) -Photo Taken Yes Yes Yes -Epithelialization None Present -Tunneling No No No -Undermining/Tunneling No No No -Circular Undermining No No No -Change in Wound Grade/Stage No -Exudate Amt None Present Medium None Present -Exudate Type Serosanguineous -Wound Margin Distinct, Distinct, Distinct, Outline Outline Outline Attached Attached Attached -Granulation Amt None Present (0 Medium (34-66%) None Present (0 %) %) -Granulation Quality N/A [place] -Slough/Fibrin Yes Yes Yes -Necrosis Amt Large (67-100%) Large (67-100%) Large (67-100%) -Necrotic Tissue Type Eschar Adherent Slough Eschar -Structure Exposed N/A N/A -Texture (Kirstie-wound Skin Appearance) No Abnormality, Assessed Assessed, Assessed Scarring -Moisture (Kirstie-wound Skin Appearance) Assessed,Dry/ Dry/Scaly Assessed Scaly -Color (Kirstie-wound Skin Appearance) No Abnormality, Assessed Assessed Assessed -Temperature (Kirstie-wound Skin No Abnormality No Abnormality No Abnormality Appearance) (Pt Warm) (Pt Warm) (Pt Warm) -Tenderness on Palpation (Kirstie-wound No No No Skin Appearance) -Ulcer Cleansing Rinsed/ Wound Cleanser Soap and Water Irrigated with Saline -Foul Odor after Cleansing No No No -Anesthetic Used 4% Lidocaine 5% Lidocaine 5% Lidocaine Solution,5% Gel Gel Lidocaine Gel -Wound Comment(s) scabbed #2 R ankle cluster -Combined with other wound No No No -Current Size (cm) - Length 6.5 6.5 2 -Current Size (cm) - Width 5 14 1.1 -Current Size (cm) - Depth 0.1 0.1 0.1 -Total Square Cm 32.5 91.0 2.2 -Date of Last Picture (Recall this 04/09/22 04/23/22 field) -Photo Taken Yes Yes -Epithelialization None Present -Tunneling No No No -Undermining/Tunneling No No No -Circular Undermining No No No -Change in Wound Grade/Stage No -Exudate Amt None Present Medium Small -Exudate Type Serosanguineous Serosanguineous -Wound Margin Distinct, Distinct, Outline Outline Attached Attached -Granulation Amt None Present (0 Medium (34-66%) None Present (0 %) %) -Granulation Quality N/A [place] -Slough/Fibrin Yes Yes Yes -Necrosis Amt Large (67-100%) Large (67-100%) Large (67-100%) -Necrotic Tissue Type Eschar Adherent Slough Eschar -Structure Exposed N/A N/A -Texture (Kirstie-wound Skin Appearance) No Abnormality, Assessed Assessed, Assessed Scarring -Moisture (Kirstie-wound Skin Appearance) Assessed,Dry/ Dry/Scaly Assessed Scaly -Color (Kirstie-wound Skin Appearance) No Abnormality, Assessed Assessed Assessed -Temperature (Kirstie-wound Skin No Abnormality No Abnormality No Abnormality Appearance) (Pt Warm) (Pt Warm) (Pt Warm) -Tenderness on Palpation (Kirstie-wound No No No Skin Appearance) -Ulcer Cleansing Rinsed/ Wound Cleanser Soap and Water Irrigated with Saline -Foul Odor after Cleansing No No No -Anesthetic Used 4% Lidocaine 5% Lidocaine 5% Lidocaine Solution,5% Gel Gel Lidocaine Gel -Wound Comment(s) scabbed #1 R lateral foot -Combined with other wound No -Current Size (cm) - Length 2.2 -Current Size (cm) - Width 4.5 -Current Size (cm) - Depth 0.1 -Total Square Cm 9.90 -Date of Last Picture (Recall this 04/09/22 field) -Photo Taken Yes -Tunneling No -Undermining/Tunneling No -Circular Undermining No -Change in Wound Grade/Stage No -Exudate Amt None Present -Wound Margin Distinct, Outline Attached -Granulation Amt None Present (0 %) -Granulation Quality N/A -Slough/Fibrin No -Necrosis Amt Large (67-100%) -Necrotic Tissue Type Eschar -Structure Exposed N/A -Texture (Kirstie-wound Skin Appearance) No Abnormality, Assessed -Moisture (Kirstie-wound Skin Appearance) No Abnormality, Assessed -Color (Kirstie-wound Skin Appearance) No Abnormality, Assessed -Temperature (Kirstie-wound Skin No Abnormality Appearance) (Pt Warm) -Tenderness on Palpation (Kirstie-wound No Skin Appearance) -Ulcer Cleansing Rinsed/ Irrigated with Saline -Foul Odor after Cleansing No -Anesthetic Used 4% Lidocaine Solution,5% Lidocaine Gel -Wound Comment(s) scabbed #8 Right Lat Foot -Combined with other wound No -Current Size (cm) - Length 0 -Current Size (cm) - Width 0 -Current Size (cm) - Depth 0 -Total Square Cm 0 -Date of Last Picture (Recall this 04/23/22 field) -Photo Taken Yes -Epithelialization -Tunneling -Undermining/Tunneling -Circular Undermining -Change in Wound Grade/Stage -Exudate Amt -Exudate Type -Wound Margin -Granulation Amt -Granulation Quality -Slough/Fibrin -Necrosis Amt -Necrotic Tissue Type -Structure Exposed -Texture (Kirstie-wound Skin Appearance) -Moisture (Kirstie-wound Skin Appearance) -Color (Kirstie-wound Skin Appearance) -Temperature (Kirstie-wound Skin Appearance) -Tenderness on Palpation (Kirstie-wound Skin Appearance) -Ulcer Cleansing -Foul Odor after Cleansing -Anesthetic Used #7 Right 1st Toe -Combined with other wound No -Current Size (cm) - Length 0.1 -Current Size (cm) - Width 0.1 -Current Size (cm) - Depth 0.1 -Total Square Cm 0.01 -Date of Last Picture (Recall this 04/23/22 field) -Photo Taken Yes -Epithelialization Large 67-100% -Tunneling -Undermining/Tunneling -Circular Undermining -Change in Wound Grade/Stage -Exudate Amt -Exudate Type -Wound Margin -Granulation Amt -Granulation Quality -Slough/Fibrin -Necrosis Amt -Necrotic Tissue Type -Structure Exposed -Texture (Kirstie-wound Skin Appearance) -Moisture (Kirstie-wound Skin Appearance) -Color (Kirstie-wound Skin Appearance) -Temperature (Kirstie-wound Skin Appearance) -Tenderness on Palpation (Kirstie-wound Skin Appearance) -Ulcer Cleansing -Foul Odor after Cleansing -Anesthetic Used #6 R Dorsal -Combined with other wound No -Combined with (Name of Wound-Exactly as it is documented) -Current Size (cm) - Length 6.5 -Current Size (cm) - Width 2.5 -Current Size (cm) - Depth 0.1 -Total Square Cm 16.25 -Date of Last Picture (Recall this 04/23/22 field) -Photo Taken Yes -Epithelialization Small 1-33% -Tunneling No -Undermining/Tunneling No -Circular Undermining No -Exudate Amt Small -Exudate Type Serosanguineous -Wound Margin Distinct, Outline Attached -Granulation Amt Medium (34-66%) -Granulation Quality Red -Slough/Fibrin Yes -Necrosis Amt Medium (34-66%) -Necrotic Tissue Type Adherent Slough -Texture (Kirstie-wound Skin Appearance) Assessed, Scarring -Moisture (Kirstie-wound Skin Appearance) Assessed -Color (Kirstie-wound Skin Appearance) Assessed -Temperature (Kirstie-wound Skin No Abnormality Appearance) (Pt Warm) -Tenderness on Palpation (Kirstie-wound No Skin Appearance) -Ulcer Cleansing Soap and Water -Foul Odor after Cleansing No -Anesthetic Used 5% Lidocaine Gel #5 L wrist -Combined with other wound No No No -Current Size (cm) - Length 1.1 0.5 0.4 -Current Size (cm) - Width 3.2 2.1 1.6 -Current Size (cm) - Depth 0.1 0.3 0.1 -Total Square Cm 3.52 1.05 0.64 -Date of Last Picture (Recall this 04/23/22 field) -Photo Taken Yes Yes Yes -Epithelialization None Present -Tunneling No No No -Undermining/Tunneling No No No -Circular Undermining No No No -Change in Wound Grade/Stage No -Exudate Amt None Present Medium Small -Exudate Type Serosanguineous Serosanguineous -Wound Margin Distinct, Distinct, Distinct, Outline Outline Outline Attached Attached Attached -Granulation Amt None Present (0 Medium (34-66%) None Present (0 %) %) -Granulation Quality [place] -Slough/Fibrin Yes Yes Yes -Necrosis Amt Large (67-100%) Large (67-100%) Large (67-100%) -Necrotic Tissue Type Adherent Slough Adherent Slough Adherent Slough -Structure Exposed N/A N/A -Texture (Kirstie-wound Skin Appearance) No Abnormality, Assessed Assessed, Assessed Scarring -Moisture (Kirstie-wound Skin Appearance) Assessed,Dry/ Dry/Scaly Assessed Scaly -Color (Kirstie-wound Skin Appearance) No Abnormality, Assessed Assessed Assessed -Temperature (Kirstie-wound Skin No Abnormality No Abnormality No Abnormality Appearance) (Pt Warm) (Pt Warm) (Pt Warm) -Tenderness on Palpation (Kirstie-wound No No No Skin Appearance) -Ulcer Cleansing Rinsed/ Wound Cleanser Soap and Water Irrigated with Saline -Foul Odor after Cleansing No No Yes, Due to Product Use -Anesthetic Used 4% Lidocaine 5% Lidocaine 5% Lidocaine Solution,5% Gel Gel Lidocaine Gel -Wound Comment(s) scabbed Lower Limb Edema Present No Yes Right Calf (cm) 30 31 31 Right Ankle (cm) 20.5 20.6 1.5 Left Calf (cm) 30.5 30.2 30.5 Left Ankle (cm) 19.4 19 1.5 04/30/22 05/07/22 13:54 10:14 Wound Center Nurse 1 #10 Left Dorsal -Combined with other wound No No -Current Size (cm) - Length 0.5 0.1 -Current Size (cm) - Width 0.6 0.1 -Current Size (cm) - Depth 0.1 0.1 -Total Square Cm 0.30 0.01 -Date of Last Picture (Recall this 05/07/22 field) -Photo Taken No Yes -Epithelialization Large 67-100% -Tunneling No -Undermining/Tunneling No -Circular Undermining No -Change in Wound Grade/Stage No -Exudate Amt Medium -Exudate Type Serosanguineous -Wound Margin Distinct, Outline Attached -Granulation Amt None Present (0 %) -Granulation Quality N/A -Slough/Fibrin Yes -Necrosis Amt Large (67-100%) -Necrotic Tissue Type Adherent Slough -Structure Exposed N/A -Texture (Kirstie-wound Skin Appearance) No Abnormality, Assessed -Moisture (Kirstie-wound Skin Appearance) No Abnormality, Assessed -Color (Kirstie-wound Skin Appearance) No Abnormality, Assessed -Temperature (Kirstie-wound Skin No Abnormality Appearance) (Pt Warm) -Tenderness on Palpation (Kirstie-wound No Skin Appearance) -Ulcer Cleansing Rinsed/ Irrigated with Saline -Foul Odor after Cleansing No -Anesthetic Used 5% Lidocaine Gel #9 Right Achilles -Combined with other wound No No -Current Size (cm) - Length 0.5 0.1 -Current Size (cm) - Width 0.4 0.1 -Current Size (cm) - Depth 0.1 0.1 -Total Square Cm 0.20 0.01 -Date of Last Picture (Recall this 05/07/22 field) -Photo Taken Yes Yes -Epithelialization Large 67-100% -Tunneling No -Undermining/Tunneling No -Circular Undermining No -Change in Wound Grade/Stage No -Exudate Amt None Present -Wound Margin Distinct, Outline Attached -Granulation Amt None Present (0 %) -Granulation Quality N/A -Slough/Fibrin Yes -Necrosis Amt None Present (0 %) -Necrotic Tissue Type Adherent Slough -Structure Exposed N/A -Texture (Kirstie-wound Skin Appearance) No Abnormality, Assessed -Moisture (Kirstie-wound Skin Appearance) No Abnormality, Assessed -Color (Kirstie-wound Skin Appearance) No Abnormality, Assessed -Temperature (Kirstie-wound Skin No Abnormality Appearance) (Pt Warm) -Tenderness on Palpation (Kirstie-wound No Skin Appearance) -Ulcer Cleansing Rinsed/ Irrigated with Saline -Foul Odor after Cleansing No -Anesthetic Used 5% Lidocaine Gel -Wound Comment(s) scabbed #4 L ankle -Combined with other wound -Current Size (cm) - Length -Current Size (cm) - Width -Current Size (cm) - Depth -Total Square Cm -Date of Last Picture (Recall this field) -Photo Taken -Epithelialization -Tunneling -Undermining/Tunneling -Circular Undermining -Change in Wound Grade/Stage -Exudate Amt -Exudate Type -Wound Margin -Granulation Amt -Granulation Quality -Slough/Fibrin -Necrosis Amt -Necrotic Tissue Type -Structure Exposed -Texture (Kirstie-wound Skin Appearance) -Moisture (Kirstie-wound Skin Appearance) -Color (Kirstie-wound Skin Appearance) -Temperature (Kirstie-wound Skin Appearance) -Tenderness on Palpation (Kirstie-wound Skin Appearance) -Ulcer Cleansing -Foul Odor after Cleansing -Anesthetic Used -Wound Comment(s) #3 R Ant Ankle -Combined with other wound No No -Current Size (cm) - Length 6.2 0.9 -Current Size (cm) - Width 2 1.8 -Current Size (cm) - Depth 0.1 0.1 -Total Square Cm 12.4 1.62 -Date of Last Picture (Recall this 04/30/22 05/07/22 field) -Photo Taken Yes Yes -Epithelialization Small 1-33% -Tunneling No No -Undermining/Tunneling No No -Circular Undermining No No -Change in Wound Grade/Stage No -Exudate Amt Large Small -Exudate Type Yellow/Green Serosanguineous -Wound Margin Distinct, Distinct, Outline Outline Attached Attached -Granulation Amt None Present (0 Small (1-33%) %) -Granulation Quality N/A Red -Slough/Fibrin Yes Yes -Necrosis Amt Large (67-100%) Large (67-100%) -Necrotic Tissue Type Adherent Slough Adherent Slough -Structure Exposed N/A -Texture (Kirstie-wound Skin Appearance) No Abnormality, Assessed, Assessed Scarring -Moisture (Kirstie-wound Skin Appearance) No Abnormality, Assessed Assessed -Color (Kirstie-wound Skin Appearance) No Abnormality, Assessed Assessed -Temperature (Kirstie-wound Skin No Abnormality No Abnormality Appearance) (Pt Warm) (Pt Warm) -Tenderness on Palpation (Kirstie-wound No No Skin Appearance) -Ulcer Cleansing Rinsed/ Rinsed/ Irrigated with Irrigated with Saline Saline -Foul Odor after Cleansing No No -Anesthetic Used 5% Lidocaine 5% Lidocaine Gel Gel -Wound Comment(s) #2 R ankle cluster -Combined with other wound -Current Size (cm) - Length -Current Size (cm) - Width -Current Size (cm) - Depth -Total Square Cm -Date of Last Picture (Recall this field) -Photo Taken -Epithelialization -Tunneling -Undermining/Tunneling -Circular Undermining -Change in Wound Grade/Stage -Exudate Amt -Exudate Type -Wound Margin -Granulation Amt -Granulation Quality -Slough/Fibrin -Necrosis Amt -Necrotic Tissue Type -Structure Exposed -Texture (Kirstie-wound Skin Appearance) -Moisture (Kirstie-wound Skin Appearance) -Color (Kirstie-wound Skin Appearance) -Temperature (Kirstie-wound Skin Appearance) -Tenderness on Palpation (Kirstie-wound Skin Appearance) -Ulcer Cleansing -Foul Odor after Cleansing -Anesthetic Used -Wound Comment(s) #1 R lateral foot -Combined with other wound -Current Size (cm) - Length -Current Size (cm) - Width -Current Size (cm) - Depth -Total Square Cm -Date of Last Picture (Recall this field) -Photo Taken -Tunneling -Undermining/Tunneling -Circular Undermining -Change in Wound Grade/Stage -Exudate Amt -Wound Margin -Granulation Amt -Granulation Quality -Slough/Fibrin -Necrosis Amt -Necrotic Tissue Type -Structure Exposed -Texture (Kirstie-wound Skin Appearance) -Moisture (Kirstie-wound Skin Appearance) -Color (Kirstie-wound Skin Appearance) -Temperature (Kirstie-wound Skin Appearance) -Tenderness on Palpation (Kirstie-wound Skin Appearance) -Ulcer Cleansing -Foul Odor after Cleansing -Anesthetic Used -Wound Comment(s) #8 Right Lat Foot -Combined with other wound No -Current Size (cm) - Length 1.2 1 -Current Size (cm) - Width 0.6 0.7 -Current Size (cm) - Depth 0.1 0.1 -Total Square Cm 0.72 0.7 -Date of Last Picture (Recall this 05/07/22 field) -Photo Taken Yes Yes -Epithelialization None Present -Tunneling No No -Undermining/Tunneling No No -Circular Undermining No No -Change in Wound Grade/Stage No -Exudate Amt Medium Small -Exudate Type Serosanguineous Serosanguineous -Wound Margin Distinct, Distinct, Outline Outline Attached Attached -Granulation Amt None Present (0 Small (1-33%) %) -Granulation Quality N/A Red -Slough/Fibrin Yes Yes -Necrosis Amt Large (67-100%) Large (67-100%) -Necrotic Tissue Type Adherent Slough Adherent Slough -Structure Exposed N/A -Texture (Kirstie-wound Skin Appearance) No Abnormality, Assessed, Assessed Scarring -Moisture (Kirstie-wound Skin Appearance) No Abnormality, Assessed Assessed -Color (Kirstie-wound Skin Appearance) No Abnormality, Assessed Assessed -Temperature (Kirstie-wound Skin No Abnormality No Abnormality Appearance) (Pt Warm) (Pt Warm) -Tenderness on Palpation (Kirstie-wound No No Skin Appearance) -Ulcer Cleansing Rinsed/ Rinsed/ Irrigated with Irrigated with Saline Saline -Foul Odor after Cleansing No No -Anesthetic Used 5% Lidocaine 5% Lidocaine Gel Gel #7 Right 1st Toe -Combined with other wound No No -Current Size (cm) - Length 0.4 0.6 -Current Size (cm) - Width 0.6 0.3 -Current Size (cm) - Depth 0.1 0.2 -Total Square Cm 0.24 0.18 -Date of Last Picture (Recall this 05/07/22 field) -Photo Taken Yes Yes -Epithelialization Small 1-33% -Tunneling No No -Undermining/Tunneling No No -Circular Undermining No No -Change in Wound Grade/Stage No -Exudate Amt None Present Small -Exudate Type Serosanguineous -Wound Margin Distinct, Distinct, Outline Outline Attached Attached -Granulation Amt None Present (0 Large (67-100%) %) -Granulation Quality N/A Red -Slough/Fibrin Yes No -Necrosis Amt Large (67-100%) None Present (0 %) -Necrotic Tissue Type Adherent Slough -Structure Exposed N/A -Texture (Kirstie-wound Skin Appearance) No Abnormality, Assessed, Assessed Scarring -Moisture (Kirstie-wound Skin Appearance) No Abnormality, Assessed,Dry/ Assessed Scaly -Color (Kirstie-wound Skin Appearance) No Abnormality, Assessed Assessed -Temperature (Kirstie-wound Skin No Abnormality No Abnormality Appearance) (Pt Warm) (Pt Warm) -Tenderness on Palpation (Kirstie-wound No No Skin Appearance) -Ulcer Cleansing Rinsed/ Rinsed/ Irrigated with Irrigated with Saline Saline -Foul Odor after Cleansing No No -Anesthetic Used 5% Lidocaine 5% Lidocaine Gel Gel #6 R Dorsal -Combined with other wound No No -Combined with (Name of Wound-Exactly right ankle as it is documented) -Current Size (cm) - Length 0.3 -Current Size (cm) - Width 0.3 -Current Size (cm) - Depth 0.1 -Total Square Cm 0.09 -Date of Last Picture (Recall this 05/07/22 field) -Photo Taken Yes -Epithelialization Small 1-33% -Tunneling No -Undermining/Tunneling No -Circular Undermining No -Exudate Amt Small -Exudate Type Serosanguineous -Wound Margin Distinct, Outline Attached -Granulation Amt None Present (0 %) -Granulation Quality -Slough/Fibrin Yes -Necrosis Amt Large (67-100%) -Necrotic Tissue Type Eschar -Texture (Kirstie-wound Skin Appearance) Assessed, Scarring -Moisture (Kirstie-wound Skin Appearance) Assessed -Color (Kirstie-wound Skin Appearance) Assessed -Temperature (Kirstie-wound Skin No Abnormality Appearance) (Pt Warm) -Tenderness on Palpation (Kirstie-wound No Skin Appearance) -Ulcer Cleansing Rinsed/ Irrigated with Saline -Foul Odor after Cleansing No -Anesthetic Used 5% Lidocaine Gel #5 L wrist -Combined with other wound No No -Current Size (cm) - Length 0.4 0.1 -Current Size (cm) - Width 0.7 0.3 -Current Size (cm) - Depth 0.1 0.1 -Total Square Cm 0.28 0.03 -Date of Last Picture (Recall this 05/07/22 field) -Photo Taken No Yes -Epithelialization None Present -Tunneling No No -Undermining/Tunneling No No -Circular Undermining No No -Change in Wound Grade/Stage No -Exudate Amt None Present None Present -Exudate Type -Wound Margin Distinct, Outline Attached -Granulation Amt None Present (0 None Present (0 %) %) -Granulation Quality N/A -Slough/Fibrin No Yes -Necrosis Amt None Present (0 Large (67-100%) %) -Necrotic Tissue Type Eschar -Structure Exposed N/A -Texture (Kirstie-wound Skin Appearance) No Abnormality, Assessed, Assessed Scarring -Moisture (Kirstie-wound Skin Appearance) No Abnormality, Assessed,Dry/ Assessed Scaly -Color (Kirstie-wound Skin Appearance) No Abnormality, Assessed Assessed -Temperature (Kirstie-wound Skin No Abnormality No Abnormality Appearance) (Pt Warm) (Pt Warm) -Tenderness on Palpation (Kirstie-wound No No Skin Appearance) -Ulcer Cleansing Rinsed/ Rinsed/ Irrigated with Irrigated with Saline Saline -Foul Odor after Cleansing No No -Anesthetic Used 5% Lidocaine 5% Lidocaine Gel Gel -Wound Comment(s) Lower Limb Edema Present Right Calf (cm) 30.2 Right Ankle (cm) 19.7 Left Calf (cm) 30.2 Left Ankle (cm) 19.1 WC - Nurse 2 - General Ulcer CM Notes Start: 04/09/22 13:29 Freq: Status: Active Protocol: Activity Type Activity Date Activity User E-sign Co-sign Detail Recorded Client Recorded Date Recorded By Document 04/09/22 15:12 PL [id number] 04/09/22 15:29 PL Document 04/16/22 15:08 PL [id number] 04/16/22 15:18 PL Document 04/23/22 15:17 PL [id number] 04/23/22 15:26 PL Document 04/30/22 15:00 PL [id number] 04/30/22 15:08 PL Document 05/07/22 10:45 PL [id number] 05/07/22 10:57 PL 04/09/22 04/16/22 04/23/22 15:12 15:08 15:17 Wound Center Nurse 2 #10 Left Dorsal -Time 14:25 -Correct Patient Yes -Correct Side, Site, Position Yes -Correct Procedure Yes -Procedure Performed Yes -Type of Procedure Debridement -Clinical Debridement Subcutaneous -Tissue Removed Subcutaneous -Post Debridement (cm) - Length 0.7 -Post Debridement (cm) - Width 0.8 -Post Debridement (cm) - Depth 0.1 -Total Square (Post) (cm) 0.56 -Area of Debridement (cm) - Length 0.7 -Area of Debridement (cm) - Width 0.8 -Total Square (Area) (cm) 0.56 -Tunneling No -Undermining/Tunneling No -Circular Undermining No -Wound/Ulcer Outcome Not Healed -Ulcer Cleansing Rinsed/ Irrigated with Saline -Foul Odor after Cleansing No -Bioengineered Tissue No -Bleeding Controlled with Pressure -Treatment Response Procedure Tolerated Well -Debridement - Subq, 1st 20sq cm Yes #9 Right Achilles -Time 14:24 14:25 -Correct Patient Yes Yes -Correct Side, Site, Position Yes Yes -Correct Procedure Yes Yes -Procedure Performed Yes Yes -Type of Procedure Debridement Debridement -Clinical Debridement Subcutaneous Subcutaneous -Tissue Removed Subcutaneous Subcutaneous -Post Debridement (cm) - Length 0.3 1.5 -Post Debridement (cm) - Width 0.5 0.8 -Post Debridement (cm) - Depth 0.1 0.1 -Total Square (Post) (cm) 0.15 1.20 -Area of Debridement (cm) - Length 0.3 1.5 -Area of Debridement (cm) - Width 0.5 0.8 -Total Square (Area) (cm) 0.15 1.20 -Tunneling No No -Undermining/Tunneling No No -Circular Undermining No No -Wound/Ulcer Outcome Not Healed Not Healed -Ulcer Cleansing Rinsed/ Rinsed/ Irrigated with Irrigated with Saline Saline -Foul Odor after Cleansing No No -Bioengineered Tissue No No -Bleeding Controlled with Pressure Pressure -Treatment Response Procedure Procedure Tolerated Well Tolerated Well -Debridement - Subq, 1st 20sq cm Yes No -Debridement, SubQ, ea addt'l 20sq cm 1 or part thereof #4 L ankle -Time 13:35 14:24 -Correct Patient Yes Yes -Correct Side, Site, Position Yes Yes -Correct Procedure Yes Yes -Procedure Performed Yes Yes No -Type of Procedure Debridement Debridement -Clinical Debridement Subcutaneous Subcutaneous -Tissue Removed Subcutaneous Subcutaneous -Post Debridement (cm) - Length 4.8 4.0 -Post Debridement (cm) - Width 1.7 4.5 -Post Debridement (cm) - Depth 0.2 0.1 -Total Square (Post) (cm) 8.16 18.00 -Area of Debridement (cm) - Length 4.8 4.0 -Area of Debridement (cm) - Width 1.7 4.5 -Total Square (Area) (cm) 8.16 18.00 -Tunneling No No -Undermining/Tunneling No No -Circular Undermining No No -Wound/Ulcer Outcome Not Healed Not Healed Healed- Epithelialized -Ulcer Cleansing Rinsed/ Rinsed/ Irrigated with Irrigated with Saline Saline -Foul Odor after Cleansing No No -Bioengineered Tissue No No -Bleeding Controlled with Pressure -Treatment Response Procedure Tolerated Well -Debridement - Subq, 1st 20sq cm No No #3 R Ant Ankle -Time 14:24 14:25 -Correct Patient Yes Yes -Correct Side, Site, Position Yes Yes -Correct Procedure Yes Yes -Procedure Performed Yes Yes -Type of Procedure Debridement Debridement -Clinical Debridement Subcutaneous Subcutaneous -Tissue Removed Subcutaneous Subcutaneous -Post Debridement (cm) - Length 1.9 1.8 -Post Debridement (cm) - Width 1.3 2.5 -Post Debridement (cm) - Depth 0.1 0.1 -Total Square (Post) (cm) 2.47 4.50 -Area of Debridement (cm) - Length 1.9 1.8 -Area of Debridement (cm) - Width 1.3 2.5 -Total Square (Area) (cm) 2.47 4.50 -Tunneling No No -Undermining/Tunneling No No -Circular Undermining No No -Wound/Ulcer Outcome Not Healed Not Healed -Ulcer Cleansing Rinsed/ Rinsed/ Irrigated with Irrigated with Saline Saline -Foul Odor after Cleansing No No -Bioengineered Tissue No No -Bleeding Controlled with Pressure Pressure -Treatment Response Procedure Procedure Tolerated Well Tolerated Well -Debridement - Subq, 1st 20sq cm No No #2 R ankle cluster -Time 14:24 -Correct Patient Yes -Correct Side, Site, Position Yes -Correct Procedure Yes -Procedure Performed Yes No -Type of Procedure Debridement -Clinical Debridement Subcutaneous -Tissue Removed Subcutaneous -Post Debridement (cm) - Length 1.8 -Post Debridement (cm) - Width 3.0 -Post Debridement (cm) - Depth 0.1 -Total Square (Post) (cm) 5.40 -Area of Debridement (cm) - Length 1.8 -Area of Debridement (cm) - Width 3.0 -Total Square (Area) (cm) 5.40 -Tunneling No -Undermining/Tunneling No -Circular Undermining No -Wound/Ulcer Outcome Not Healed Healed- Epithelialized -Ulcer Cleansing Rinsed/ Irrigated with Saline -Foul Odor after Cleansing No -Bioengineered Tissue No -Bleeding Controlled with Pressure -Treatment Response Procedure Tolerated Well -Debridement - Subq, 1st 20sq cm No #8 Right Lat Foot -Time 14:24 14:25 -Correct Patient Yes Yes -Correct Side, Site, Position Yes Yes -Correct Procedure Yes Yes -Procedure Performed Yes Yes -Type of Procedure Debridement Debridement -Clinical Debridement Subcutaneous Subcutaneous -Tissue Removed Subcutaneous Subcutaneous -Post Debridement (cm) - Length 2.0 2.0 -Post Debridement (cm) - Width 1.4 1.4 -Post Debridement (cm) - Depth 0.1 0.1 -Total Square (Post) (cm) 2.80 2.80 -Area of Debridement (cm) - Length 2.0 2.0 -Area of Debridement (cm) - Width 1.4 1.4 -Total Square (Area) (cm) 2.80 2.80 -Tunneling No No -Undermining/Tunneling No No -Circular Undermining No No -Wound/Ulcer Outcome Not Healed Not Healed -Ulcer Cleansing Rinsed/ Rinsed/ Irrigated with Irrigated with Saline Saline -Foul Odor after Cleansing No No -Bioengineered Tissue No No -Bleeding Controlled with Pressure Pressure -Treatment Response Procedure Procedure Tolerated Well Tolerated Well -Debridement - Subq, 1st 20sq cm No No #7 Right 1st Toe -Time 14:24 14:25 -Correct Patient Yes Yes -Correct Side, Site, Position Yes Yes -Correct Procedure Yes Yes -Procedure Performed Yes Yes -Type of Procedure Debridement Debridement -Clinical Debridement Subcutaneous Subcutaneous -Tissue Removed Subcutaneous Subcutaneous -Post Debridement (cm) - Length 1.0 0.5 -Post Debridement (cm) - Width 2.0 1.5 -Post Debridement (cm) - Depth 0.1 0.1 -Total Square (Post) (cm) 2.00 0.75 -Area of Debridement (cm) - Length 1.0 0.5 -Area of Debridement (cm) - Width 2.0 1.5 -Total Square (Area) (cm) 2.00 0.75 -Tunneling No No -Undermining/Tunneling No No -Circular Undermining No No -Wound/Ulcer Outcome Not Healed Not Healed -Ulcer Cleansing Rinsed/ Rinsed/ Irrigated with Irrigated with Saline Saline -Foul Odor after Cleansing No No -Bioengineered Tissue No -Bleeding Controlled with Pressure Pressure -Treatment Response Procedure Procedure Tolerated Well Tolerated Well -Debridement - Subq, 1st 20sq cm No No #6 R Dorsal -Time 14:24 14:25 -Correct Patient Yes Yes -Correct Side, Site, Position Yes Yes -Correct Procedure Yes Yes -Procedure Performed Yes Yes -Type of Procedure Debridement Debridement -Clinical Debridement Subcutaneous Subcutaneous -Tissue Removed Subcutaneous Subcutaneous -Post Debridement (cm) - Length 1.5 1.2 -Post Debridement (cm) - Width 1.4 1.0 -Post Debridement (cm) - Depth 0.1 0.1 -Total Square (Post) (cm) 2.10 1.20 -Area of Debridement (cm) - Length 1.5 1.2 -Area of Debridement (cm) - Width 1.4 1.0 -Total Square (Area) (cm) 2.10 1.20 -Tunneling No No -Undermining/Tunneling No No -Circular Undermining No No -Wound/Ulcer Outcome Not Healed Not Healed -Ulcer Cleansing Rinsed/ Rinsed/ Irrigated with Irrigated with Saline Saline -Foul Odor after Cleansing No No -Bioengineered Tissue No No -Bleeding Controlled with Pressure Pressure -Treatment Response Procedure Procedure Tolerated Well Tolerated Well -Debridement - Subq, 1st 20sq cm No No #5 L wrist -Time 13:35 14:24 14:25 -Correct Patient Yes Yes Yes -Correct Side, Site, Position Yes Yes Yes -Correct Procedure Yes Yes Yes -Procedure Performed Yes Yes Yes -Type of Procedure Debridement Debridement Debridement -Clinical Debridement Subcutaneous Subcutaneous Subcutaneous -Tissue Removed Subcutaneous Subcutaneous Subcutaneous -Post Debridement (cm) - Length 1.2 0.9 0.4 -Post Debridement (cm) - Width 3.8 2.1 1.6 -Post Debridement (cm) - Depth 0.7 0.4 0.1 -Total Square (Post) (cm) 4.56 1.89 0.64 -Area of Debridement (cm) - Length 1.2 0.9 0.4 -Area of Debridement (cm) - Width 3.8 2.1 1.6 -Total Square (Area) (cm) 4.56 1.89 0.64 -Tunneling No No No -Undermining/Tunneling No No No -Circular Undermining No No No -Wound/Ulcer Outcome Not Healed Not Healed Not Healed -Ulcer Cleansing Rinsed/ Rinsed/ Rinsed/ Irrigated with Irrigated with Irrigated with Saline Saline Saline -Foul Odor after Cleansing No No No -Bioengineered Tissue No No No -Bleeding Controlled with Pressure Pressure Pressure -Treatment Response Procedure Procedure Procedure Tolerated Well Tolerated Well Tolerated Well -Debridement - Subq, 1st 20sq cm Yes No No -Debridement, SubQ, ea addt'l 20sq cm 2 or part thereof Pain Scale: 0-10 Numeric Is Patient Pain Free? Yes Yes Yes 04/30/22 05/07/22 15:00 10:45 Wound Center Nurse 2 #10 Left Dorsal -Time 14:01 -Correct Patient Yes -Correct Side, Site, Position Yes -Correct Procedure Yes -Procedure Performed Yes No -Type of Procedure Debridement -Clinical Debridement Subcutaneous -Tissue Removed Subcutaneous -Post Debridement (cm) - Length 0.5 -Post Debridement (cm) - Width 0.5 -Post Debridement (cm) - Depth 0.1 -Total Square (Post) (cm) 0.25 -Area of Debridement (cm) - Length 0.5 -Area of Debridement (cm) - Width 0.5 -Total Square (Area) (cm) 0.25 -Tunneling No -Undermining/Tunneling No -Circular Undermining No -Wound/Ulcer Outcome Not Healed Healed- Epithelialized -Ulcer Cleansing Rinsed/ Irrigated with Saline -Foul Odor after Cleansing No -Bioengineered Tissue No -Bleeding Controlled with Pressure -Treatment Response Procedure Tolerated Well -Debridement - Subq, 1st 20sq cm No #9 Right Achilles -Time 14:01 -Correct Patient Yes -Correct Side, Site, Position Yes -Correct Procedure Yes -Procedure Performed Yes -Type of Procedure Debridement -Clinical Debridement Subcutaneous -Tissue Removed Subcutaneous -Post Debridement (cm) - Length 0.3 -Post Debridement (cm) - Width 0.4 -Post Debridement (cm) - Depth 0.1 -Total Square (Post) (cm) 0.12 -Area of Debridement (cm) - Length 0.3 -Area of Debridement (cm) - Width 0.4 -Total Square (Area) (cm) 0.12 -Tunneling No -Undermining/Tunneling No -Circular Undermining No -Wound/Ulcer Outcome Not Healed -Ulcer Cleansing Rinsed/ Irrigated with Saline -Foul Odor after Cleansing No -Bioengineered Tissue No -Bleeding Controlled with Pressure -Treatment Response Procedure Tolerated Well -Debridement - Subq, 1st 20sq cm No -Debridement, SubQ, ea addt'l 20sq cm or part thereof #4 L ankle -Time -Correct Patient -Correct Side, Site, Position -Correct Procedure -Procedure Performed -Type of Procedure -Clinical Debridement -Tissue Removed -Post Debridement (cm) - Length -Post Debridement (cm) - Width -Post Debridement (cm) - Depth -Total Square (Post) (cm) -Area of Debridement (cm) - Length -Area of Debridement (cm) - Width -Total Square (Area) (cm) -Tunneling -Undermining/Tunneling -Circular Undermining -Wound/Ulcer Outcome -Ulcer Cleansing -Foul Odor after Cleansing -Bioengineered Tissue -Bleeding Controlled with -Treatment Response -Debridement - Subq, 20sq cm #3 R Ant Ankle -Time 14:01 -Correct Patient Yes -Correct Side, Site, Position Yes -Correct Procedure Yes -Procedure Performed Yes -Type of Procedure Debridement -Clinical Debridement Subcutaneous -Tissue Removed Subcutaneous -Post Debridement (cm) - Length 1.4 -Post Debridement (cm) - Width 0.2 -Post Debridement (cm) - Depth 0.1 -Total Square (Post) (cm) 0.28 -Area of Debridement (cm) - Length 1.4 -Area of Debridement (cm) - Width 0.2 -Total Square (Area) (cm) 0.28 -Tunneling No -Undermining/Tunneling No -Circular Undermining No -Wound/Ulcer Outcome Not Healed -Ulcer Cleansing Rinsed/ Irrigated with Saline -Foul Odor after Cleansing No -Bioengineered Tissue No -Bleeding Controlled with Pressure -Treatment Response Procedure Tolerated Well -Debridement - Subq, 1st 20sq cm Yes #2 R ankle cluster -Time -Correct Patient -Correct Side, Site, Position -Correct Procedure -Procedure Performed -Type of Procedure -Clinical Debridement -Tissue Removed -Post Debridement (cm) - Length -Post Debridement (cm) - Width -Post Debridement (cm) - Depth -Total Square (Post) (cm) -Area of Debridement (cm) - Length -Area of Debridement (cm) - Width -Total Square (Area) (cm) -Tunneling -Undermining/Tunneling -Circular Undermining -Wound/Ulcer Outcome -Ulcer Cleansing -Foul Odor after Cleansing -Bioengineered Tissue -Bleeding Controlled with -Treatment Response -Debridement - Subq, 20sq cm #8 Right Lat Foot -Time 14:01 -Correct Patient Yes -Correct Side, Site, Position Yes -Correct Procedure Yes -Procedure Performed Yes -Type of Procedure Debridement -Clinical Debridement Subcutaneous -Tissue Removed Subcutaneous -Post Debridement (cm) - Length 1.2 -Post Debridement (cm) - Width 1.0 -Post Debridement (cm) - Depth 0.1 -Total Square (Post) (cm) 1.20 -Area of Debridement (cm) - Length 1.2 -Area of Debridement (cm) - Width 1.0 -Total Square (Area) (cm) 1.20 -Tunneling No -Undermining/Tunneling No -Circular Undermining No -Wound/Ulcer Outcome Not Healed -Ulcer Cleansing Rinsed/ Irrigated with Saline -Foul Odor after Cleansing No -Bioengineered Tissue No -Bleeding Controlled with Pressure -Treatment Response Procedure Tolerated Well -Debridement - Subq, 1st 20sq cm No #7 Right 1st Toe -Time 14:01 -Correct Patient Yes -Correct Side, Site, Position Yes -Correct Procedure Yes -Procedure Performed Yes -Type of Procedure Debridement -Clinical Debridement Subcutaneous -Tissue Removed Subcutaneous -Post Debridement (cm) - Length 0.5 -Post Debridement (cm) - Width 0.6 -Post Debridement (cm) - Depth 0.1 -Total Square (Post) (cm) 0.30 -Area of Debridement (cm) - Length 0.5 -Area of Debridement (cm) - Width 0.6 -Total Square (Area) (cm) 0.30 -Tunneling No -Undermining/Tunneling No -Circular Undermining No -Wound/Ulcer Outcome Not Healed -Ulcer Cleansing Rinsed/ Irrigated with Saline -Foul Odor after Cleansing No -Bioengineered Tissue No -Bleeding Controlled with Pressure -Treatment Response Procedure Tolerated Well -Debridement - Subq, 1st 20sq cm No #6 R Dorsal -Time 14:01 -Correct Patient Yes -Correct Side, Site, Position Yes -Correct Procedure Yes -Procedure Performed Yes -Type of Procedure Debridement -Clinical Debridement Subcutaneous -Tissue Removed Subcutaneous -Post Debridement (cm) - Length 0.4 -Post Debridement (cm) - Width 0.5 -Post Debridement (cm) - Depth 0.1 -Total Square (Post) (cm) 0.20 -Area of Debridement (cm) - Length 0.4 -Area of Debridement (cm) - Width 0.5 -Total Square (Area) (cm) 0.20 -Tunneling No -Undermining/Tunneling No -Circular Undermining No -Wound/Ulcer Outcome Not Healed -Ulcer Cleansing Rinsed/ Irrigated with Saline -Foul Odor after Cleansing No -Bioengineered Tissue No -Bleeding Controlled with Pressure -Treatment Response Procedure Tolerated Well -Debridement - Subq, 1st 20sq cm No #5 L wrist -Time 14:01 -Correct Patient Yes -Correct Side, Site, Position Yes -Correct Procedure Yes -Procedure Performed Yes -Type of Procedure Debridement -Clinical Debridement Subcutaneous -Tissue Removed Subcutaneous -Post Debridement (cm) - Length 0.3 -Post Debridement (cm) - Width 0.5 -Post Debridement (cm) - Depth 0.1 -Total Square (Post) (cm) 0.15 -Area of Debridement (cm) - Length 0.3 -Area of Debridement (cm) - Width 0.5 -Total Square (Area) (cm) 0.15 -Tunneling No -Undermining/Tunneling No -Circular Undermining No -Wound/Ulcer Outcome Not Healed -Ulcer Cleansing Rinsed/ Irrigated with Saline -Foul Odor after Cleansing No -Bioengineered Tissue No -Bleeding Controlled with Pressure -Treatment Response Procedure Tolerated Well -Debridement - Subq, 1st 20sq cm No -Debridement, SubQ, ea addt'l 20sq cm or part thereof Pain Scale: 0-10 Numeric Is Patient Pain Free? Yes Yes - Nurse 3 - General Ulcer D/C NN Start: 04/09/22 13:29 Freq: Status: Active Protocol: Activity Type Activity Date Activity User E-sign Co-sign Detail Recorded Client Recorded Date Recorded By Document 04/09/22 15:05 [place] [id number] 04/09/22 15:16 [place] Document 04/16/22 14:59 [place] [id number] 04/16/22 15:01 [place] Document 04/23/22 14:53 [facility] [id number] 04/23/22 14:57 [facility] Document 04/30/22 15:04 [place] [id number] 04/30/22 15:07 [place] Document 05/07/22 11:08 [facility] [id number] 05/07/22 11:09 [facility] 04/09/22 04/16/22 04/23/22 15:05 14:59 14:53 [facility] Center Nurse 3 #10 Left Dorsal -Ulcer Cleansing -Foul Odor after Cleansing -Negative Pressure Wound Therapy -Other Dressing -Primary Dressing Covered/Secured with #9 Right Achilles -Ulcer Cleansing Rinsed/ Irrigated with Saline -Foul Odor after Cleansing No -Other Dressing SANTYL -Primary Dressing Covered/Secured with Dry Gauze & Roll Gauze, Secured with Tape -Other Covering DRSG PER MT RN #4 L ankle -Ulcer Cleansing Soap and Water Rinsed/ Rinsed/ Irrigated with Irrigated with Saline Saline -Foul Odor after Cleansing No No -Negative Pressure Wound Therapy N/A -Other Dressing santyl ordered. hydrogel SANTYL hydrogel placed today on wounds. -Primary Dressing Covered/Secured with Dry Gauze & Dry Gauze & Dry Gauze & Roll Gauze, Roll Gauze, Roll Gauze, Secured with Secured with Secured with Tape Tape Tape -Other Covering DRSG PER [place] RN #3 R Ant Ankle -Ulcer Cleansing Soap and Water Rinsed/ Rinsed/ Irrigated with Irrigated with Saline Saline -Foul Odor after Cleansing No No -Negative Pressure Wound Therapy N/A -Other Dressing hydrogel SANTYL -Primary Dressing Covered/Secured with Dry Gauze & Dry Gauze & Dry Gauze & Roll Gauze, Roll Gauze, Roll Gauze, Secured with Secured with Secured with Tape Tape Tape -Other Covering DRSG PER MT RN #2 R ankle cluster -Ulcer Cleansing Soap and Water Rinsed/ Rinsed/ Irrigated with Irrigated with Saline Saline -Foul Odor after Cleansing No No -Negative Pressure Wound Therapy N/A -Other Dressing hydrogel SANTYL -Primary Dressing Covered/Secured with Dry Gauze & Dry Gauze & Dry Gauze & Roll Gauze, Roll Gauze, Roll Gauze, Secured with Secured with Secured with Tape Tape Tape -Other Covering DRSG PER MT RN #1 R lateral foot -Ulcer Cleansing Soap and Water -Primary Dressing Covered/Secured with Dry Gauze & Roll Gauze, Secured with Tape #8 Right Lat Foot -Ulcer Cleansing Rinsed/ Irrigated with Saline -Foul Odor after Cleansing No -Primary Dressing Applied -Other Dressing SANTYL -Primary Dressing Covered/Secured with Dry Gauze & Roll Gauze, Secured with Tape -Other Covering DRSG PER [place] RN -Promogran #7 Right 1st Toe -Ulcer Cleansing Rinsed/ Irrigated with Saline -Foul Odor after Cleansing No -Negative Pressure Wound Therapy -Primary Dressing Applied -Other Dressing SANTYL -Primary Dressing Covered/Secured with Dry Gauze & Roll Gauze, Secured with Tape -Other Covering DRSG PER [place] RN -Promogran #6 R Dorsal -Ulcer Cleansing Rinsed/ Irrigated with Saline -Foul Odor after Cleansing No -Negative Pressure Wound Therapy -Primary Dressing Applied -Other Dressing SANTYL -Primary Dressing Covered/Secured with Dry Gauze & Roll Gauze, Secured with Tape -Other Covering DRSG PER MT -Promogran #5 L wrist -Ulcer Cleansing Rinsed/ Rinsed/ Irrigated with Irrigated with Saline Saline -Foul Odor after Cleansing No No -Negative Pressure Wound Therapy N/A -Primary Dressing Applied Promogran Promogran C Hydrogel ($) Marcela Matter Marcela Matter, Mepilex Border -Other Dressing DRSG PER MT RN -Primary Dressing Covered/Secured with Dry Gauze & Dry Gauze & Roll Gauze, Roll Gauze, Secured with Secured with Tape Tape -Other Covering -Mepilex Border 1 -Promogran Marcela Matter 1 1 Right -Lotion applied to leg before No compression wrap -Tubular Bandage Single Layer Single Layer Single Layer -Size of Tubigrip Used Size D Size E Size D -Size D ($) 1 1 -Size E ($) 1 Left -Tubular Bandage Single Layer Single Layer Single Layer -Size of Tubigrip Used Size D Size E Size D -Size D ($) 1 1 -Size E ($) 1 Pain Scale: 0-10 Numeric Is Patient Pain Free? Yes Yes Yes WC - Visit Discharge Discharge Condition Stable Stable Ambulatory Status Ambulatory Ambulatory Transportation Private Auto Private Auto Medication Reconcilliation completed & Yes provided to patient/care provider Clinical Summary of Care Provided Yes 04/30/22 05/07/22 15:04 11:08 Wound Care Center Nurse 3 #10 Left Dorsal -Ulcer Cleansing Rinsed/ Irrigated with Saline -Foul Odor after Cleansing No -Negative Pressure Wound Therapy N/A -Other Dressing own santyl and bandaid -Primary Dressing Covered/Secured with Dry Gauze #9 Right Achilles -Ulcer Cleansing Rinsed/ Irrigated with Saline -Foul Odor after Cleansing -Other Dressing own santyl and bandaid -Primary Dressing Covered/Secured with -Other Covering #4 L ankle -Ulcer Cleansing -Foul Odor after Cleansing -Negative Pressure Wound Therapy -Other Dressing -Primary Dressing Covered/Secured with -Other Covering #3 R Ant Ankle -Ulcer Cleansing Rinsed/ Irrigated with Saline -Foul Odor after Cleansing No -Negative Pressure Wound Therapy N/A -Other Dressing own santyl and bandaid -Primary Dressing Covered/Secured with Dry Gauze -Other Covering #2 R ankle cluster -Ulcer Cleansing -Foul Odor after Cleansing -Negative Pressure Wound Therapy -Other Dressing -Primary Dressing Covered/Secured with -Other Covering #1 R lateral foot -Ulcer Cleansing -Primary Dressing Covered/Secured with #8 Right Lat Foot -Ulcer Cleansing Rinsed/ Rinsed/ Irrigated with Irrigated with Saline Saline -Foul Odor after Cleansing No -Primary Dressing Applied Promogran -Other Dressing -Primary Dressing Covered/Secured with Dry Gauze Dry Gauze & Roll Gauze, Secured with Tape -Other Covering own santyl and bandaid -Promogran 1 #7 Right 1st Toe -Ulcer Cleansing Rinsed/ Rinsed/ Irrigated with Irrigated with Saline Saline -Foul Odor after Cleansing No No -Negative Pressure Wound Therapy N/A -Primary Dressing Applied Promogran -Other Dressing own santyl and bandaid -Primary Dressing Covered/Secured with Dry Gauze Dry Gauze & Roll Gauze, Secured with Tape -Other Covering -Promogran 0 #6 R Dorsal -Ulcer Cleansing Rinsed/ Rinsed/ Irrigated with Irrigated with Saline Saline -Foul Odor after Cleansing No No -Negative Pressure Wound Therapy N/A -Primary Dressing Applied Promogran -Other Dressing own santyl and bandaid -Primary Dressing Covered/Secured with Dry Gauze Dry Gauze & Roll Gauze, Secured with Tape -Other Covering -Promogran 0 #5 L wrist -Ulcer Cleansing Rinsed/ Rinsed/ Irrigated with Irrigated with Saline Saline -Foul Odor after Cleansing No No -Negative Pressure Wound Therapy N/A -Primary Dressing Applied C Hydrogel ($) -Other Dressing -Primary Dressing Covered/Secured with Other -Other Covering hydrogel/ bandaid bandaid -Mepilex Border -Promogran Marcela Matter Right -Lotion applied to leg before compression wrap -Tubular Bandage Single Layer -Size of Tubigrip Used Size D -Size D ($) 0 -Size E ($) Left -Tubular Bandage -Size of Tubigrip Used -Size D ($) -Size E ($) Pain Scale: 0-10 Numeric Is Patient Pain Free? Yes Yes WC - Visit Discharge Discharge Condition Stable Ambulatory Status Ambulatory Transportation Private Auto Medication Reconcilliation completed & Yes provided to patient/care provider Clinical Summary of Care Provided Yes Additional Wound Wound debrided: R ankle Laterality: Right Type of Debridement: Excisional debridement Anesthesia Used: 5% Lidocaine Gel and Cetacaine Depth: Down to and including healthy tissue and in the subcutaneous layer Percentage of wound debrided: 100 Instrument Used: 5mm curette, #10 blade and Forceps Tissue Removed: adherent slough/scab, devitalized tissue Severity: Fat Layer Exposed Amount of bleeding with debridement: Mild Bleeding Controlled with: Pressure Patient tolerated procedure: Patient tolerated procedure well Additional Wound Wound debrided: R dorsal foot Laterality: Right Type of Debridement: Excisional debridement Anesthesia Used: 5% Lidocaine Gel and Cetacaine Depth: Down to and including healthy tissue and in the subcutaneous layer Percentage of wound debrided: 100 Instrument Used: 5mm curette Tissue Removed: adherent slough/scab, devitalized tissue Severity: Fat Layer Exposed Amount of bleeding with debridement: Mild Bleeding Controlled with: Pressure Patient tolerated procedure: Patient tolerated procedure well Additional Wound Wound debrided: L wrist Laterality: Left Type of Debridement: Excisional debridement Anesthesia Used: 5% Lidocaine Gel and Cetacaine Depth: Down to and including healthy tissue and in the subcutaneous layer Percentage of wound debrided: 100 Instrument Used: 5mm curette Tissue Removed: adherent slough/scab, devitalized tissue Severity: Fat Layer Exposed Amount of bleeding with debridement: Mild Bleeding Controlled with: Pressure Patient tolerated procedure: Patient tolerated procedure well Additional Wound Wound debrided: R great toe Laterality: Right Type of Debridement: Excisional debridement Anesthesia Used: 5% Lidocaine Gel Depth: Down to and including healthy tissue Instrument Used: 5mm curette Tissue Removed: slough, devitalized tissue Bleeding Controlled with: Pressure Patient tolerated procedure: Patient tolerated procedure well Assessment/Plan Assessment/Plan (1) 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 RLE and L wrist wound with improved size from last week. All wound bases had pink granulation tissue and good bleeding. Will apply promogran to RLE wounds, cover with adaptic and kerlix, tubigrips for compression. Collagen hydrogel to L wrist wound. Silicone-bordered dressing for secondary. Change dressings daily or more often as needed to keep clean and dry. Return to clinic in 1 week or sooner as needed.
== END 2022-05-07 23:59 | disposition home or self-care (01) ==
LOC: WC 10:30
PROVIDERS: PCP Family Medicine; Visit Provider Physician Assistant
DX: E11.622 Type 2 diabetes mellitus with other skin ulcer (principal); E11.621 Type 2 diabetes mellitus with foot ulcer; L97.322 Non-pressure chronic ulcer of left ankle with fat layer exposed; L97.312 Non-pressure chronic ulcer of right ankle with fat layer exposed; L97.512 Non-pressure chronic ulcer of other part of right foot with fat layer exposed; E11.22 Type 2 diabetes mellitus with diabetic chronic kidney disease; N18.32 Chronic kidney disease, stage 3b; R60.0 Localized edema; Z87.891 Personal history of nicotine dependence; M79.672 Pain in left foot; S61.532S Puncture wound without foreign body of left wrist, sequela; I25.10 Atherosclerotic heart disease of native coronary artery without angina pectoris; M79.671 Pain in right foot; I12.9 Hypertensive chronic kidney disease with stage 1 through stage 4 chronic kidney disease, or unspecified chronic kidney disease; E78.5 Hyperlipidemia, unspecified; Z79.82 Long term (current) use of aspirin; Z95.1 Presence of aortocoronary bypass graft; Z95.2 Presence of prosthetic heart valve; Z79.899 Other long term (current) drug therapy; W46.0XXS Contact with hypodermic needle, sequela
CPT/HCPCS: 11042; 11045; 99213; G0463

== ENCOUNTER → 2022-05-11 | Outpatient (CLI) | payer MEDICARE, SELFPAY ==
[2022-05-11 12:39] VITALS: PULSE 101; PULSE 80; PULSE 81; PULSE 84; PULSE 92; PULSE 95; PULSE 98; O2SAT 94; O2SAT 95; O2SAT 96
--- NOTE | 2022-05-12 10:10 | PCM.PSN.6M ---
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 Assistive device used: None Pre-test Oxygen Delivery Method Room Air Pulse Ox (%) 96 Pulse Rate (60-100 beats/min) 80 Dyspnea Osvaldo Scale (0-10) 0 Exertion Osvaldo Scale (6-20) 6 1st minute Oxygen Delivery Method Room Air Pulse Ox (%) 95 Pulse Rate (60-100 beats/min) 84 2nd minute Oxygen Delivery Method Room Air Pulse Ox (%) 94 Pulse Rate (60-100 beats/min) 92 3rd minute Oxygen Delivery Method Room Air Pulse Ox (%) 94 Pulse Rate (60-100 beats/min) 95 4th minute Oxygen Delivery Method Room Air Pulse Ox (%) 94 Pulse Rate (60-100 beats/min) 98 5th minute Oxygen Delivery Method Room Air Pulse Ox (%) 94 Pulse Rate (60-100 beats/min) 101 H 6th minute Oxygen Delivery Method Room Air Pulse Ox (%) 94 Pulse Rate (60-100 beats/min) 101 H Dyspnea Osvaldo Scale (0-10) 2 Exertion Osvaldo Scale (6-20) 13 Post-test Oxygen Delivery Method Room Air Pulse Ox (%) 96 Pulse Rate (60-100 beats/min) 81 Full Laps Walked 16 Partial Lap, Number of Tiles Walked 12 Total Distance Walked (ft) 956 Interpretation Interpretation: The patient ambulated 956 feet over the course of 6 minutes beginning on room air without assistive devices. Pretesting oxygen saturation was noted to be 96% on room air. With ambulation, the caridad oxygen saturation was 94%. There was no significant exertional oxygen desaturation. Recommendations Recommendations: There is no indication for the use of supplemental oxygen at this time.
== END | disposition home or self-care (01) ==
LOC: PSN 11:54
PROVIDERS: PCP Family Medicine; Referring Provider Nurse Practitioner Acute Care; Visit Provider Nurse Practitioner Acute Care
DX: J44.9 Chronic obstructive pulmonary disease, unspecified (principal)
CPT/HCPCS: 94618

== ENCOUNTER → 2022-05-17 | Outpatient (CLI) | payer MEDICARE, SELFPAY ==
[2022-05-17 16:26] LABS: Anion Gap 2 (5-15); BUN 27 mg/dL (7-18); BUN/Creat Ratio 16.3 RATIO (10-20); Calcium,Total 8.9 mg/dL (8.5-10.1); Chloride 107 mmol/L (98-107); Creatinine, Serum 1.66 mg/dL (0.70-1.30); EST Glomerular Filtration Rate 44 mL/min (>60); Est Glom Filt Rate - Afr Amer 53 mL/min (>60); Glucose 99 mg/dL (74-106); Potassium 4.3 mmol/L (3.5-5.1); Sodium Level 136 mmol/L (136-145)
== END | disposition home or self-care (01) ==
LOC: LAB 14:55
PROVIDERS: PCP Family Medicine; Referring Provider Physician Assistant Medical; Visit Provider Physician Assistant Medical
DX: I35.0 Nonrheumatic aortic (valve) stenosis (principal); I27.21 Secondary pulmonary arterial hypertension; I71.40 Abdominal aortic aneurysm, without rupture, unspecified; I10 Essential (primary) hypertension; E78.5 Hyperlipidemia, unspecified; N28.9 Disorder of kidney and ureter, unspecified; R60.0 Localized edema; Z95.1 Presence of aortocoronary bypass graft
CPT/HCPCS: 36415; 80048

== ENCOUNTER 2022-06-04 09:00 | Outpatient (RCR) | payer MEDICARE, SELFPAY ==
[2022-05-08 00:43] VITALS: BP 129/66; PULSE 67; RESP 16; TEMP 35.9
[2022-05-14 08:07] VITALS: BP 129/74; PULSE 72; RESP 18; TEMP 35.8
--- NOTE | 2022-05-14 08:46 | PN.PCM_ITS ---
History of Present Illness Date of Service: 05/14/22 Chief Complaint: Left wrist wound Multiple bilateral lower extremity wounds History of Wound: Patient is new to [facility] but known to me from the vascular surgery clinic. 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 Patient was understandably quite ill following this and hospitalized for some time during which he had significant BLE edema at which point the wounds began to appear. They were overall stable for some time, and then he was hospitalized a few weeks ago for pneumonia, had increased BLE edema again, and wounds worsened/new ones appeared. Since then, he feels they are improved in appearance. The wrist wound appeared during the initial hospitalization for AAA, at that time he describes it initially as a hematoma which eventually developed into this chronic wound. Last week, he had significant erythema and pain in his RLE and was started on antibiotics. Venous duplex was also obtained to r/o DVT and this was negative. Erythema did improve with antibiotics. Patient still has pain in bilateral feet, worse right than left; bilateral feet/ankles are intermittently hypersensitive to touch. He notes continued mild BLE edema. He does not currently wear compression. Subjective Subjective Patient has been applying Promogran and changing dressings for his BLE wounds as directed. He has been applying hydrogel to L wrist wound as directed. No new/worsening pain, erythema, swelling, drainage, foul odor, F/C, N/V. Objective Data Objective Data Vital Signs: Vital Signs Temp Pulse Resp BP O2 Flow Rate 96.4 F L 72 18 129/74 H 2 05/14/22 08:07 05/14/22 08:07 05/14/22 08:07 05/14/22 08:07 05/08/22 00:43 Oxygen Flow Rate (L/min) 2 Charges/Coding Multi Select Codes Integumentary Integumentary CPT Codes: 56209 Sylvia subq tissue 20 sq cm/< Physical Exam Const alert, oriented x3 and no apparent distress General Appearance: cooperative, comfortable and well developed HEENT normocephalic, head/scalp atraumatic, hearing grossly normal bilaterally, external ears normal and external nose normal Eyes EOMs intact bilaterally General Eye: normal appearance of both eyes Neck full ROM General: normal visual inspection and trachea midline Resp normal respiratory effort, no retractions and no use of accessory muscles Effort and Inspection: able to speak in complete sentences and symmetric chest movement Cardio regular rate and regular rhythm Peripheral Pulses: brachial pulses present and radial pulses present Extremity Extremity Narrative: Patient has sensitivity to light touch, especially on R foot. Skin Wounds: wounds noted Wound Narrative: R dorsal foot wound healed. Only R lat mal and R ant ankle/sanchez remain. [place], granulation tissue at the wound beds. Good bleeding. No significant erythema, foul odor, drainage noted. Left wrist wound healed. 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: R lat mal Laterality: Right Type of Debridement: Excisional debridement Anesthesia Used: 5% Lidocaine Gel and Cetacaine Depth: Down to and including healthy tissue and in the subcutaneous layer Percentage of wound debrided: 100 Instrument Used: 5mm curette Tissue Removed: adherent slough/scab, devitalized tissue Severity: Fat Layer Exposed Amount of bleeding with debridement: Mild Bleeding Controlled with: Pressure Patient tolerated procedure: Patient tolerated procedure well Post-Debridement Measurements and Additional Note: Post-Debridement Measurements/Treatment - Nurse 1 - General Ulcer Assessment Start: 05/14/22 08:07 Freq: Status: Active Protocol: JC Activity Type Activity Date Activity User E-sign Co-sign Detail Recorded Client Recorded Date Recorded By Document 05/14/22 08:07 KENTRELL [id number] 05/14/22 08:18 KENTRELL 05/14/22 08:07 - Today's Visit Information Type of service 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 Any new allergies or adverse reactions No Had a fall/change in ADL's that may No increase risk of falls Signs or symptoms of abuse and/or No neglect since last visit Have you been in the hospital since your No last visit? Has dressing in place as prescribed Yes Has compression in place as prescribed N/A Has offloadiing in place as prescribed N/A Experienced any changes in pain level or No management Left Footwear Regular Shoe Right Footwear Regular Shoe Pain Scale: 0-10 Numeric Is Patient Pain Free? Yes WC - Nurse 1 - General Ulcer Measurement Start: 05/14/22 08:07 Freq: Status: Active Protocol: Activity Type Activity Date Activity User E-sign Co-sign Detail Recorded Client Recorded Date Recorded By Document 05/14/22 08:07 KENTRELL [id number] 05/14/22 08:18 KENTRELL 05/14/22 08:07 Wound Center Nurse 1 #8 Right Lat Foot -Combined with other wound No -Current Size (cm) - Length 0.8 -Current Size (cm) - Width 0.5 -Current Size (cm) - Depth 0.1 -Total Square Cm 0.40 -Photo Taken Yes -Epithelialization Medium 34-66% -Tunneling No -Undermining/Tunneling No -Circular Undermining No -Exudate Amt None Present -Wound Margin Indistinct, Non -Visible -Granulation Amt None Present (0 %) -Slough/Fibrin Yes -Necrosis Amt Large (67-100%) -Necrotic Tissue Type Adherent Slough -Texture (Kirstie-wound Skin Appearance) Assessed,Not Assessed -Moisture (Kirstie-wound Skin Appearance) No Abnormality, Assessed -Color (Kirstie-wound Skin Appearance) No Abnormality, Assessed -Temperature (Kirstie-wound Skin No Abnormality Appearance) (Pt Warm) -Tenderness on Palpation (Kirstie-wound Yes Skin Appearance) -Ulcer Cleansing Rinsed/ Irrigated with Saline -Foul Odor after Cleansing No -Anesthetic Used 5% Lidocaine Gel #7 Right 1st Toe -Combined with other wound No -Current Size (cm) - Length 0.1 -Current Size (cm) - Width 0.1 -Current Size (cm) - Depth 0.1 -Total Square Cm 0.01 -Photo Taken Yes -Epithelialization Large 67-100% -Tunneling No -Undermining/Tunneling No -Circular Undermining No -Exudate Amt None Present -Wound Margin Fibrotic Scar, Thickened Scar -Granulation Amt None Present (0 %) -Slough/Fibrin Yes -Necrosis Amt Large (67-100%) -Necrotic Tissue Type Adherent Slough -Structure Exposed N/A -Texture (Kirstie-wound Skin Appearance) No Abnormality, Assessed -Moisture (Kirstie-wound Skin Appearance) No Abnormality, Assessed,Dry/ Scaly -Color (Kirstie-wound Skin Appearance) No Abnormality, Assessed -Temperature (Kirstie-wound Skin No Abnormality Appearance) (Pt Warm) -Tenderness on Palpation (Kirstie-wound No Skin Appearance) -Ulcer Cleansing Rinsed/ Irrigated with Saline -Foul Odor after Cleansing No -Anesthetic Used 5% Lidocaine Gel #6 R Dorsal -Combined with other wound No -Current Size (cm) - Length 0 -Current Size (cm) - Width 0 -Current Size (cm) - Depth 0 -Total Square Cm 0 -Photo Taken Yes -Epithelialization Large 67-100% #5 L wrist -Combined with other wound No -Current Size (cm) - Length 0.1 -Current Size (cm) - Width 0.1 -Current Size (cm) - Depth 0.1 -Total Square Cm 0.01 -Photo Taken Yes -Epithelialization Large 67-100% -Tunneling No -Undermining/Tunneling No -Circular Undermining No -Exudate Amt None Present -Wound Margin Fibrotic Scar, Thickened Scar #3 R Ant Ankle -Combined with other wound No -Current Size (cm) - Length 0.8 -Current Size (cm) - Width 1.5 -Current Size (cm) - Depth 0.1 -Total Square Cm 1.20 -Photo Taken Yes -Epithelialization Small 1-33% -Tunneling No -Undermining/Tunneling No -Circular Undermining No -Exudate Amt None Present -Wound Margin Fibrotic Scar, Thickened Scar -Granulation Amt Medium (34-66%) -Granulation Quality [place] -Slough/Fibrin Yes -Necrosis Amt Small (1-33%) -Necrotic Tissue Type Adherent Slough -Structure Exposed N/A -Texture (Kirstie-wound Skin Appearance) Assessed -Moisture (Kirstie-wound Skin Appearance) Assessed -Color (Kirstie-wound Skin Appearance) Assessed -Temperature (Kirstie-wound Skin No Abnormality Appearance) (Pt Warm) -Tenderness on Palpation (Kirstie-wound No Skin Appearance) -Ulcer Cleansing Rinsed/ Irrigated with Saline -Foul Odor after Cleansing No -Anesthetic Used 5% Lidocaine Gel Lower Limb Edema Present NA Additional Wound Wound debrided: R ant ankle Laterality: Right Type of Debridement: Excisional debridement Anesthesia Used: 5% Lidocaine Gel and Cetacaine Depth: Down to and including healthy tissue and in the subcutaneous layer Percentage of wound debrided: 100 Instrument Used: 5mm curette, #10 blade and Forceps Tissue Removed: adherent slough/scab, devitalized tissue Severity: Fat Layer Exposed Amount of bleeding with debridement: Mild Bleeding Controlled with: Pressure Patient tolerated procedure: Patient tolerated procedure well Additional Wound Wound debrided: R dorsal foot Instrument Used: 5mm curette Severity: Fat Layer Exposed Amount of bleeding with debridement: Mild Bleeding Controlled with: Pressure Patient tolerated procedure: Patient tolerated procedure well Operative Diagnosis: healed Additional Wound Wound debrided: L wrist Operative Diagnosis: healed Additional Wound Amount of bleeding with debridement: Mild Additional Wound Wound debrided: R great toe Laterality: Right Type of Debridement: Excisional debridement Anesthesia Used: 5% Lidocaine Gel Depth: Down to and including healthy tissue Instrument Used: 3mm curette Tissue Removed: slough, devitalized tissue Bleeding Controlled with: Pressure Patient tolerated procedure: Patient tolerated procedure well Assessment/Plan Assessment/Plan (1) 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 R dorsal foot and posterior lower leg wound healed. L wrist wound healed. Only R anterior ankle and lateral malleolus wounds remain. All wound bases had pink granulation tissue and good bleeding. Will apply promogran to RLE wounds, cover with adaptic and kerlix, tubigrips for compression. Change dressings daily or more often as needed to keep clean and dry. Continue to apply collagen hydrogel to L wrist wound for 1 more week. Return to clinic in 1 week or sooner as needed.
[2022-05-21 08:08] VITALS: BP 133/71; PULSE 73; RESP 16; TEMP 36.2
--- NOTE | 2022-05-21 13:41 | PCM.WC.PN ---
History of Present Illness Date of Service: 05/21/22 Chief Complaint: Left wrist wound Multiple bilateral lower extremity wounds History of Wound: Patient is new to [facility] but known to me from the vascular surgery clinic. 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 Patient was understandably quite ill following this and hospitalized for some time during which he had significant BLE edema at which point the wounds began to appear. They were overall stable for some time, and then he was hospitalized a few weeks ago for pneumonia, had increased BLE edema again, and wounds worsened/new ones appeared. Since then, he feels they are improved in appearance. The wrist wound appeared during the initial hospitalization for AAA, at that time he describes it initially as a hematoma which eventually developed into this chronic wound. Last week, he had significant erythema and pain in his RLE and was started on antibiotics. Venous duplex was also obtained to r/o DVT and this was negative. Erythema did improve with antibiotics. Patient still has pain in bilateral feet, worse right than left; bilateral feet/ankles are intermittently hypersensitive to touch. He notes continued mild BLE edema. He does not currently wear compression. Subjective Subjective Patient has been applying Promogran and changing dressings for his BLE wounds as directed. He has been applying hydrogel to L wrist wound as directed. No new/worsening pain, erythema, swelling, drainage, foul odor, F/C, N/V. Objective Data Objective Data Vital Signs: Vital Signs Temp Pulse Resp BP O2 Del Method O2 Flow Rate 97.1 F L 73 16 133/71 H Room Air 2 05/21/22 08:08 05/21/22 08:08 05/21/22 08:08 05/21/22 08:08 05/21/22 08:08 05/08/22 00:43 Oxygen Flow Rate (L/min) 2 Oxygen Delivery Method Room Air Charges/Coding Procedures Integumentary 111xxx-113xx: [id number] Sylvia subq tissue 20 sq cm/< Physical Exam Const alert, oriented x3 and no apparent distress General Appearance: cooperative, comfortable and well developed HEENT normocephalic, head/scalp atraumatic, hearing grossly normal bilaterally, external ears normal and external nose normal Eyes EOMs intact bilaterally General Eye: normal appearance of both eyes Neck full ROM General: normal visual inspection and trachea midline Resp normal respiratory effort, no retractions and no use of accessory muscles Effort and Inspection: able to speak in complete sentences and symmetric chest movement Cardio regular rate and regular rhythm Peripheral Pulses: brachial pulses present and radial pulses present Extremity Extremity Narrative: Patient has sensitivity to light touch, especially on R foot. Skin Wounds: wounds noted Wound Narrative: R lat mal and R ant ankle/sanchez with pink, granulation tissue at the wound beds. Good bleeding. No significant erythema, foul odor, drainage noted. 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: R lat mal Laterality: Right Type of Debridement: Excisional debridement Anesthesia Used: 5% Lidocaine Gel and Cetacaine Depth: Down to and including healthy tissue and in the subcutaneous layer Percentage of wound debrided: 100 Instrument Used: 5mm curette Tissue Removed: adherent slough/scab, devitalized tissue Severity: Fat Layer Exposed Amount of bleeding with debridement: Mild Bleeding Controlled with: Pressure Patient tolerated procedure: Patient tolerated procedure well Post-Debridement Measurements and Additional Note: Post-Debridement Measurements/Treatment - Nurse 1 - General Ulcer Assessment Start: 05/14/22 08:07 Freq: Status: Active Protocol: JC Activity Type Activity Date Activity User E-sign Co-sign Detail Recorded Client Recorded Date Recorded By Document 05/14/22 08:07 [id number] 05/14/22 08:18 Document 05/21/22 08:08 [facility] [id number] 05/21/22 08:20 [facility] 05/14/22 05/21/22 08:07 08:08 - Today's Visit Information Type of service Follow-up Visit Follow-up Visit (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/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 (Physician/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 ) ) Arrival Mode Ambulatory Ambulatory Transfer Assistance None Patient Identification Verified (Name & Yes ) Patient Requires Transmission-Based No No Precautions Vital Signs Temperature (97.8 F-99.1 F) 96.4 F L 97.1 F L Temperature Source Temporal Temporal Pulse Rate (60-100) 72 73 Pulse Location Monitor Monitor Respiratory Rate (12-18) 18 16 Respiratory rate source Observation Observation Oxygen Delivery Method Room Air Blood Pressure (90/60-120/80) 129/74 H 133/71 H Blood Pressure Mean (mm Hg) 92 91 Source Monitor Monitor Position Sitting Sitting Blood Pressure Location Left Arm Right Arm History Since Last Visit- (Skip if this is Patient's initial visit) Have you changed medications since your No No last visit? Any new allergies or adverse reactions No No Had a fall/change in ADL's that may No No increase risk of falls Signs or symptoms of abuse and/or No No neglect since last visit Have you been in the hospital since your No No last visit? Has dressing in place as prescribed Yes Yes Has compression in place as prescribed N/A N/A Has offloadiing in place as prescribed N/A N/A Experienced any changes in pain level or No No management Left Footwear Regular Shoe Regular Shoe Right Footwear Regular Shoe Regular Shoe Pain Scale: 0-10 Numeric Is Patient Pain Free? Yes Yes WC - Nurse 1 - General Ulcer Measurement Start: 05/14/22 08:07 Freq: Status: Active Protocol: Activity Type Activity Date Activity User E-sign Co-sign Detail Recorded Client Recorded Date Recorded By Document 05/14/22 08:07 [id number] 05/14/22 08:18 Document 05/21/22 08:08 [facility] [id number] 05/21/22 08:20 [facility] 05/14/22 05/21/22 08:07 08:08 Wound Center Nurse 1 #7 Right 1st Toe -Combined with other wound No No -Current Size (cm) - Length 0.1 0.3 -Current Size (cm) - Width 0.1 0.3 -Current Size (cm) - Depth 0.1 0.1 -Total Square Cm 0.01 0.09 -Date of Last Picture (Recall this 05/21/22 field) -Photo Taken Yes Yes -Epithelialization Large 67-100% Small 1-33% -Tunneling No No -Undermining/Tunneling No No -Circular Undermining No No -Exudate Amt None Present None Present -Wound Margin Fibrotic Scar, Distinct, Thickened Scar Outline Attached -Granulation Amt None Present (0 Small (1-33%) %) -Granulation Quality Red -Slough/Fibrin Yes Yes -Necrosis Amt Large (67-100%) Large (67-100%) -Necrotic Tissue Type Adherent Slough Adherent Slough -Structure Exposed N/A -Texture (Kirstie-wound Skin Appearance) No Abnormality, Assessed, Assessed Scarring -Moisture (Kirstie-wound Skin Appearance) No Abnormality, Assessed Assessed,Dry/ Scaly -Color (Kirstie-wound Skin Appearance) No Abnormality, Assessed Assessed -Temperature (Kirstie-wound Skin No Abnormality No Abnormality Appearance) (Pt Warm) (Pt Warm) -Tenderness on Palpation (Kirstie-wound No No Skin Appearance) -Ulcer Cleansing Rinsed/ Rinsed/ Irrigated with Irrigated with Saline Saline -Foul Odor after Cleansing No No -Anesthetic Used 5% Lidocaine 5% Lidocaine Gel Gel #6 R Dorsal -Combined with other wound No -Current Size (cm) - Length 0 -Current Size (cm) - Width 0 -Current Size (cm) - Depth 0 -Total Square Cm 0 -Photo Taken Yes -Epithelialization Large 67-100% #5 L wrist -Combined with other wound No -Current Size (cm) - Length 0.1 -Current Size (cm) - Width 0.1 -Current Size (cm) - Depth 0.1 -Total Square Cm 0.01 -Photo Taken Yes -Epithelialization Large 67-100% -Tunneling No -Undermining/Tunneling No -Circular Undermining No -Exudate Amt None Present -Wound Margin Fibrotic Scar, Thickened Scar #8 Right Lat ankle -Combined with other wound No No -Current Size (cm) - Length 0.8 0.7 -Current Size (cm) - Width 0.5 0.4 -Current Size (cm) - Depth 0.1 0.1 -Total Square Cm 0.40 0.28 -Date of Last Picture (Recall this 05/21/22 field) -Photo Taken Yes Yes -Epithelialization Medium 34-66% Small 1-33% -Tunneling No No -Undermining/Tunneling No No -Circular Undermining No No -Exudate Amt None Present None Present -Wound Margin Indistinct, Non Distinct, -Visible Outline Attached -Granulation Amt None Present (0 Large (67-100%) %) -Granulation Quality Red -Slough/Fibrin Yes Yes -Necrosis Amt Large (67-100%) Small (1-33%) -Necrotic Tissue Type Adherent Slough Adherent Slough -Texture (Kirstie-wound Skin Appearance) Assessed,Not Assessed, Assessed Scarring -Moisture (Kirstie-wound Skin Appearance) No Abnormality, Assessed Assessed -Color (Kirstie-wound Skin Appearance) No Abnormality, Assessed Assessed -Temperature (Kirstie-wound Skin No Abnormality No Abnormality Appearance) (Pt Warm) (Pt Warm) -Tenderness on Palpation (Kirstie-wound Yes No Skin Appearance) -Ulcer Cleansing Rinsed/ Rinsed/ Irrigated with Irrigated with Saline Saline -Foul Odor after Cleansing No No -Anesthetic Used 5% Lidocaine 5% Lidocaine Gel Gel #3 R Ant Ankle -Combined with other wound No No -Current Size (cm) - Length 0.8 0.8 -Current Size (cm) - Width 1.5 1.4 -Current Size (cm) - Depth 0.1 0.1 -Total Square Cm 1.20 1.12 -Date of Last Picture (Recall this 05/21/22 field) -Photo Taken Yes Yes -Epithelialization Small 1-33% Small 1-33% -Tunneling No No -Undermining/Tunneling No No -Circular Undermining No No -Exudate Amt None Present None Present -Wound Margin Fibrotic Scar, Distinct, Thickened Scar Outline Attached -Granulation Amt Medium (34-66%) None Present (0 %) -Granulation Quality [place] -Slough/Fibrin Yes Yes -Necrosis Amt Small (1-33%) Large (67-100%) -Necrotic Tissue Type Adherent Slough Adherent Slough -Structure Exposed N/A -Texture (Kirstie-wound Skin Appearance) Assessed Assessed, Scarring -Moisture (Kirstie-wound Skin Appearance) Assessed Assessed -Color (Kirstie-wound Skin Appearance) Assessed Assessed -Temperature (Kirstie-wound Skin No Abnormality No Abnormality Appearance) (Pt Warm) (Pt Warm) -Tenderness on Palpation (Kirstie-wound No No Skin Appearance) -Ulcer Cleansing Rinsed/ Rinsed/ Irrigated with Irrigated with Saline Saline -Foul Odor after Cleansing No No -Anesthetic Used 5% Lidocaine 5% Lidocaine Gel Gel Lower Limb Edema Present NA Right Calf (cm) 30.7 Right Ankle (cm) 20 WC - Nurse 2 - General Ulcer CM Notes Start: 05/14/22 08:07 Freq: Status: Active Protocol: Activity Type Activity Date Activity User E-sign Co-sign Detail Recorded Client Recorded Date Recorded By Document 05/14/22 08:51 PL [id number] 05/14/22 09:00 PL Document 05/21/22 08:55 PL [id number] 05/21/22 08:57 PL 05/14/22 05/21/22 08:51 08:55 Wound Center Nurse 2 #7 Right 1st Toe -Time 08:30 -Correct Patient Yes -Correct Side, Site, Position Yes -Correct Procedure Yes -Procedure Performed Yes No -Type of Procedure Debridement -Clinical Debridement Subcutaneous -Tissue Removed Subcutaneous -Post Debridement (cm) - Length 0.2 -Post Debridement (cm) - Width 0.4 -Post Debridement (cm) - Depth 0.1 -Total Square (Post) (cm) 0.08 -Area of Debridement (cm) - Length 0.2 -Area of Debridement (cm) - Width 0.4 -Total Square (Area) (cm) 0.08 -Tunneling No -Undermining/Tunneling No -Circular Undermining No -Wound/Ulcer Outcome Not Healed Healed- Epithelialized -Ulcer Cleansing Rinsed/ Irrigated with Saline -Foul Odor after Cleansing No -Bioengineered Tissue No -Bleeding Controlled with Pressure -Treatment Response Procedure Tolerated Well -Debridement - Subq, 1st 20sq cm No #6 R Dorsal -Procedure Performed No -Wound/Ulcer Outcome Healed- Epithelialized #5 L wrist -Procedure Performed No -Wound/Ulcer Outcome Healed- Epithelialized #8 Right Lat ankle -Time 08:30 08:45 -Correct Patient Yes Yes -Correct Side, Site, Position Yes Yes -Correct Procedure Yes Yes -Procedure Performed Yes Yes -Type of Procedure Debridement Debridement -Clinical Debridement Subcutaneous Subcutaneous -Tissue Removed Subcutaneous Subcutaneous -Post Debridement (cm) - Length 0.8 0.5 -Post Debridement (cm) - Width 0.5 0.4 -Post Debridement (cm) - Depth 0.1 0.1 -Total Square (Post) (cm) 0.40 0.20 -Area of Debridement (cm) - Length 0.8 0.5 -Area of Debridement (cm) - Width 0.5 0.4 -Total Square (Area) (cm) 0.40 0.20 -Tunneling No No -Undermining/Tunneling No No -Circular Undermining No No -Wound/Ulcer Outcome Not Healed Not Healed -Ulcer Cleansing Rinsed/ Rinsed/ Irrigated with Irrigated with Saline Saline -Foul Odor after Cleansing No No -Bioengineered Tissue No No -Bleeding Controlled with Pressure Pressure -Treatment Response Procedure Procedure Tolerated Well Tolerated Well -Debridement - Subq, 1st 20sq cm No No #3 R Ant Ankle -Time 08:30 08:45 -Correct Patient Yes Yes -Correct Side, Site, Position Yes Yes -Correct Procedure Yes Yes -Procedure Performed Yes Yes -Type of Procedure Debridement Debridement -Clinical Debridement Subcutaneous Subcutaneous -Tissue Removed Subcutaneous Subcutaneous -Post Debridement (cm) - Length 0.5 0.4 -Post Debridement (cm) - Width 1.1 0.5 -Post Debridement (cm) - Depth 0.1 0.1 -Total Square (Post) (cm) 0.55 0.20 -Area of Debridement (cm) - Length 0.5 0.4 -Area of Debridement (cm) - Width 1.1 0.5 -Total Square (Area) (cm) 0.55 0.20 -Tunneling No No -Undermining/Tunneling No No -Circular Undermining No No -Wound/Ulcer Outcome Not Healed Not Healed -Ulcer Cleansing Rinsed/ Rinsed/ Irrigated with Irrigated with Saline Saline -Foul Odor after Cleansing No No -Bioengineered Tissue No No -Bleeding Controlled with Pressure Pressure -Treatment Response Procedure Procedure Tolerated Well Tolerated Well -Debridement - Subq, 1st 20sq cm Yes Yes Pain Scale: 0-10 Numeric Is Patient Pain Free? Yes Yes - Nurse 3 - General Ulcer D/C NN Start: 05/14/22 08:07 Freq: Status: Active Protocol: Activity Type Activity Date Activity User E-sign Co-sign Detail Recorded Client Recorded Date Recorded By Document 05/14/22 08:58 [id number] 05/14/22 08:59 Document 05/21/22 08:56 Desktop 05/21/22 08:57 05/14/22 05/21/22 08:58 08:56 Wound Care Center Nurse 3 #7 Right 1st Toe -Ulcer Cleansing Rinsed/ Rinsed/ Irrigated with Irrigated with Saline Saline -Foul Odor after Cleansing No No -Primary Dressing Applied Promogran -Other Dressing gel -Primary Dressing Covered/Secured with Dry Gauze, Dry Gauze Secured with Tape -Promogran 0 #5 L wrist -Ulcer Cleansing Rinsed/ Irrigated with Saline -Foul Odor after Cleansing No -Primary Dressing Applied C Hydrogel ($) -Primary Dressing Covered/Secured with Dry Gauze, Secured with Tape #8 Right Lat ankle -Ulcer Cleansing Rinsed/ Rinsed/ Irrigated with Irrigated with Saline Saline -Foul Odor after Cleansing No No -Primary Dressing Applied Promogran -Other Dressing gel -Primary Dressing Covered/Secured with Dry Gauze, Dry Gauze Secured with Tape -Promogran 0 #3 R Ant Ankle -Ulcer Cleansing Rinsed/ Rinsed/ Irrigated with Irrigated with Saline Saline -Foul Odor after Cleansing No No -Primary Dressing Applied Promogran -Other Dressing gel -Primary Dressing Covered/Secured with Dry Gauze, Dry Gauze Secured with Tape -Promogran 0 Pain Scale: 0-10 Numeric Is Patient Pain Free? Yes Yes WC - Visit Discharge Discharge Condition Stable Stable Ambulatory Status Ambulatory Ambulatory Transportation Private Auto Private Auto Medication Reconcilliation completed & Yes Yes provided to patient/care provider Clinical Summary of Care Provided Yes Yes Additional Wound Wound debrided: R ant ankle Laterality: Right Type of Debridement: Excisional debridement Anesthesia Used: 5% Lidocaine Gel and Cetacaine Depth: Down to and including healthy tissue and in the subcutaneous layer Percentage of wound debrided: 100 Instrument Used: 5mm curette, #10 blade and Forceps Tissue Removed: adherent slough/scab, devitalized tissue Severity: Fat Layer Exposed Amount of bleeding with debridement: Mild Bleeding Controlled with: Pressure Patient tolerated procedure: Patient tolerated procedure well Assessment/Plan Assessment/Plan (1) 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 Wound bases had pink granulation tissue and good bleeding. Continue promogran to RLE wounds, cover with adaptic and kerlix, tubigrips for compression. Change dressings daily or more often as needed to keep clean and dry. Continue to apply collagen hydrogel to healed L wrist wound and pad/protect as new skin is still delicate. Return to clinic in 1 week or sooner as needed.
[2022-05-28 08:47] VITALS: BP 121/72; PULSE 73; RESP 16; TEMP 36.1
--- NOTE | 2022-05-28 11:16 | PCM.WC.PN ---
History of Present Illness Date of Service: 05/28/22 Chief Complaint: Left wrist wound Multiple bilateral lower extremity wounds History of Wound: Patient is new to [facility] but known to me from the vascular surgery clinic. 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 Patient was understandably quite ill following this and hospitalized for some time during which he had significant BLE edema at which point the wounds began to appear. They were overall stable for some time, and then he was hospitalized a few weeks ago for pneumonia, had increased BLE edema again, and wounds worsened/new ones appeared. Since then, he feels they are improved in appearance. The wrist wound appeared during the initial hospitalization for AAA, at that time he describes it initially as a hematoma which eventually developed into this chronic wound. Last week, he had significant erythema and pain in his RLE and was started on antibiotics. Venous duplex was also obtained to r/o DVT and this was negative. Erythema did improve with antibiotics. Patient still has pain in bilateral feet, worse right than left; bilateral feet/ankles are intermittently hypersensitive to touch. He notes continued mild BLE edema. He does not currently wear compression. Subjective Subjective Patient has been applying Promogran and changing dressings for his wounds as directed. He has been applying hydrogel to L wrist wound as directed. No new/worsening pain, erythema, swelling, drainage, foul odor, F/C, N/V. Objective Data Objective Data Vital Signs: Vital Signs Temp Pulse Resp BP O2 Del Method O2 Flow Rate 96.9 F L 73 16 121/72 H Room Air 2 05/28/22 08:47 05/28/22 08:47 05/28/22 08:47 05/28/22 08:47 05/28/22 08:47 05/08/22 00:43 Oxygen Flow Rate (L/min) 2 Oxygen Delivery Method Room Air Charges/Coding Procedures Integumentary 111xxx-113xx: [id number] Sylvia subq tissue 20 sq cm/< Physical Exam Const alert, oriented x3 and no apparent distress General Appearance: cooperative, comfortable and well developed HEENT normocephalic, head/scalp atraumatic, hearing grossly normal bilaterally, external ears normal and external nose normal Eyes EOMs intact bilaterally General Eye: normal appearance of both eyes Neck full ROM General: normal visual inspection and trachea midline Resp normal respiratory effort, no retractions and no use of accessory muscles Effort and Inspection: able to speak in complete sentences and symmetric chest movement Cardio regular rate and regular rhythm Peripheral Pulses: brachial pulses present and radial pulses present Extremity Extremity Narrative: Patient has sensitivity to light touch, especially on R foot. Skin Wounds: wounds noted Wound Narrative: R lat mal smaller in size with granulation tissue at the wound beds. Good bleeding. No significant erythema, foul odor, drainage noted. 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: R lat mal Laterality: Right Type of Debridement: Excisional debridement Anesthesia Used: 5% Lidocaine Gel and Cetacaine Depth: Down to and including healthy tissue and in the subcutaneous layer Percentage of wound debrided: 100 Instrument Used: 5mm curette Tissue Removed: adherent slough/scab, devitalized tissue Severity: Fat Layer Exposed Amount of bleeding with debridement: Mild Bleeding Controlled with: Pressure Patient tolerated procedure: Patient tolerated procedure well Post-Debridement Measurements and Additional Note: Post-Debridement Measurements/Treatment - Nurse 1 - General Ulcer Assessment Start: 05/14/22 08:07 Freq: Status: Active Protocol: JC Activity Type Activity Date Activity User E-sign Co-sign Detail Recorded Client Recorded Date Recorded By Document 05/14/22 08:07 [id number] 05/14/22 08:18 Document 05/21/22 08:08 [facility] [id number] 05/21/22 08:20 [facility] Document 05/28/22 08:47 [facility] [id number] 05/28/22 08:52 [facility] 05/14/22 05/21/22 05/28/22 08:07 08:08 08:47 - Today's Visit Information Type of service Follow-up Visit Follow-up Visit Follow-up Visit (Physician/DIRECTOR OF OUTPATIENT SERVICES (Physician/DIRECTOR OF OUTPATIENT SERVICES (Physician/DIRECTOR OF OUTPATIENT SERVICES ) ) ) Arrival Mode Ambulatory Ambulatory Ambulatory Transfer Assistance None None Patient Identification Verified (Name & Yes Yes ) Patient Requires Transmission-Based No No Precautions Vital Signs Temperature (97.8 F-99.1 F) 96.4 F L 97.1 F L 96.9 F L Temperature Source Temporal Temporal Temporal Pulse Rate (60-100) 72 73 73 Pulse Location Monitor Monitor Monitor Respiratory Rate (12-18) 18 16 16 Respiratory rate source Observation Observation Observation Oxygen Delivery Method Room Air Room Air Blood Pressure (90/60-120/80) 129/74 H 133/71 H 121/72 H Blood Pressure Mean (mm Hg) 92 91 88 Source Monitor Monitor Monitor Position Sitting Sitting Sitting Blood Pressure Location Left Arm Right Arm Left Arm History Since Last Visit- (Skip if this is Patient's initial visit) Have you changed medications since your No No No last visit? Any new allergies or adverse reactions No No No Had a fall/change in ADL's that may No No No increase risk of falls Signs or symptoms of abuse and/or No No No neglect since last visit Have you been in the hospital since your No No No last visit? Has dressing in place as prescribed Yes Yes No Has compression in place as prescribed N/A N/A N/A Has offloadiing in place as prescribed N/A N/A N/A Experienced any changes in pain level or No No No management Left Footwear Regular Shoe Regular Shoe Regular Shoe Right Footwear Regular Shoe Regular Shoe Regular Shoe Pain Scale: 0-10 Numeric Is Patient Pain Free? Yes Yes Yes - Nurse 1 - General Ulcer Measurement Start: 05/14/22 08:07 Freq: Status: Active Protocol: Activity Type Activity Date Activity User E-sign Co-sign Detail Recorded Client Recorded Date Recorded By Document 05/14/22 08:07 [id number] 05/14/22 08:18 Document 05/21/22 08:08 [facility] [id number] 05/21/22 08:20 [facility] Document 05/28/22 08:47 [facility] [id number] 05/28/22 08:52 [facility] 05/14/22 05/21/22 05/28/22 08:07 08:08 08:47 Wound Center Nurse 1 #7 Right 1st Toe -Combined with other wound No No -Current Size (cm) - Length 0.1 0.3 -Current Size (cm) - Width 0.1 0.3 -Current Size (cm) - Depth 0.1 0.1 -Total Square Cm 0.01 0.09 -Date of Last Picture (Recall this 05/21/22 field) -Photo Taken Yes Yes -Epithelialization Large 67-100% Small 1-33% -Tunneling No No -Undermining/Tunneling No No -Circular Undermining No No -Exudate Amt None Present None Present -Wound Margin Fibrotic Scar, Distinct, Thickened Scar Outline Attached -Granulation Amt None Present (0 Small (1-33%) %) -Granulation Quality Red -Slough/Fibrin Yes Yes -Necrosis Amt Large (67-100%) Large (67-100%) -Necrotic Tissue Type Adherent Slough Adherent Slough -Structure Exposed N/A -Texture (Kirstie-wound Skin Appearance) No Abnormality, Assessed, Assessed Scarring -Moisture (Kirstie-wound Skin Appearance) No Abnormality, Assessed Assessed,Dry/ Scaly -Color (Kirstie-wound Skin Appearance) No Abnormality, Assessed Assessed -Temperature (Kirstie-wound Skin No Abnormality No Abnormality Appearance) (Pt Warm) (Pt Warm) -Tenderness on Palpation (Kirstie-wound No No Skin Appearance) -Ulcer Cleansing Rinsed/ Rinsed/ Irrigated with Irrigated with Saline Saline -Foul Odor after Cleansing No No -Anesthetic Used 5% Lidocaine 5% Lidocaine Gel Gel #6 R Dorsal -Combined with other wound No -Current Size (cm) - Length 0 -Current Size (cm) - Width 0 -Current Size (cm) - Depth 0 -Total Square Cm 0 -Photo Taken Yes -Epithelialization Large 67-100% #5 L wrist -Combined with other wound No -Current Size (cm) - Length 0.1 -Current Size (cm) - Width 0.1 -Current Size (cm) - Depth 0.1 -Total Square Cm 0.01 -Photo Taken Yes -Epithelialization Large 67-100% -Tunneling No -Undermining/Tunneling No -Circular Undermining No -Exudate Amt None Present -Wound Margin Fibrotic Scar, Thickened Scar #3 R Ant Ankle -Combined with other wound No No No -Current Size (cm) - Length 0.8 0.8 0.1 -Current Size (cm) - Width 1.5 1.4 0.1 -Current Size (cm) - Depth 0.1 0.1 0.1 -Total Square Cm 1.20 1.12 0.01 -Date of Last Picture (Recall this 05/21/22 05/28/22 field) -Photo Taken Yes Yes Yes -Epithelialization Small 1-33% Small 1-33% Large 67-100% -Tunneling No No -Undermining/Tunneling No No -Circular Undermining No No -Exudate Amt None Present None Present None Present -Wound Margin Fibrotic Scar, Distinct, Thickened Scar Outline Attached -Granulation Amt Medium (34-66%) None Present (0 %) -Granulation Quality [place] -Slough/Fibrin Yes Yes Yes -Necrosis Amt Small (1-33%) Large (67-100%) Small (1-33%) -Necrotic Tissue Type Adherent Slough Adherent Slough Adherent Slough -Structure Exposed N/A -Texture (Kirstie-wound Skin Appearance) Assessed Assessed, Assessed, Scarring Scarring -Moisture (Kirstie-wound Skin Appearance) Assessed Assessed Assessed -Color (Kirstie-wound Skin Appearance) Assessed Assessed Assessed -Temperature (Kirstie-wound Skin No Abnormality No Abnormality No Abnormality Appearance) (Pt Warm) (Pt Warm) (Pt Warm) -Tenderness on Palpation (Kirstie-wound No No No Skin Appearance) -Ulcer Cleansing Rinsed/ Rinsed/ Rinsed/ Irrigated with Irrigated with Irrigated with Saline Saline Saline -Foul Odor after Cleansing No No No -Anesthetic Used 5% Lidocaine 5% Lidocaine 5% Lidocaine Gel Gel Gel #8 Right Lat ankle -Combined with other wound No No No -Current Size (cm) - Length 0.8 0.7 0.4 -Current Size (cm) - Width 0.5 0.4 0.1 -Current Size (cm) - Depth 0.1 0.1 0.1 -Total Square Cm 0.40 0.28 0.04 -Date of Last Picture (Recall this 05/21/22 05/28/22 field) -Photo Taken Yes Yes Yes -Epithelialization Medium 34-66% Small 1-33% Large 67-100% -Tunneling No No No -Undermining/Tunneling No No No -Circular Undermining No No No -Exudate Amt None Present None Present None Present -Wound Margin Indistinct, Non Distinct, Distinct, -Visible Outline Outline Attached Attached -Granulation Amt None Present (0 Large (67-100%) Small (1-33%) %) -Granulation Quality Red Red -Slough/Fibrin Yes Yes -Necrosis Amt Large (67-100%) Small (1-33%) Large (67-100%) -Necrotic Tissue Type Adherent Slough Adherent Slough Adherent Slough -Texture (Kirstie-wound Skin Appearance) Assessed,Not Assessed, Assessed, Assessed Scarring Scarring -Moisture (Kirstie-wound Skin Appearance) No Abnormality, Assessed Assessed,Dry/ Assessed Scaly -Color (Kirstie-wound Skin Appearance) No Abnormality, Assessed Assessed Assessed -Temperature (Kirstie-wound Skin No Abnormality No Abnormality No Abnormality Appearance) (Pt Warm) (Pt Warm) (Pt Warm) -Tenderness on Palpation (Kirstie-wound Yes No No Skin Appearance) -Ulcer Cleansing Rinsed/ Rinsed/ Rinsed/ Irrigated with Irrigated with Irrigated with Saline Saline Saline -Foul Odor after Cleansing No No No -Anesthetic Used 5% Lidocaine 5% Lidocaine 5% Lidocaine Gel Gel Gel Lower Limb Edema Present NA Right Calf (cm) 30.7 Right Ankle (cm) 20 WC - Nurse 2 - General Ulcer CM Notes Start: 05/14/22 08:07 Freq: Status: Active Protocol: Activity Type Activity Date Activity User E-sign Co-sign Detail Recorded Client Recorded Date Recorded By Document 05/14/22 08:51 PL [id number] 05/14/22 09:00 PL Document 05/21/22 08:55 PL [id number] 05/21/22 08:57 PL Document 05/28/22 09:25 PL [id number] 05/28/22 09:27 PL 05/14/22 05/21/22 05/28/22 08:51 08:55 09:25 Wound Center Nurse 2 #7 Right 1st Toe -Time 08:30 -Correct Patient Yes -Correct Side, Site, Position Yes -Correct Procedure Yes -Procedure Performed Yes No -Type of Procedure Debridement -Clinical Debridement Subcutaneous -Tissue Removed Subcutaneous -Post Debridement (cm) - Length 0.2 -Post Debridement (cm) - Width 0.4 -Post Debridement (cm) - Depth 0.1 -Total Square (Post) (cm) 0.08 -Area of Debridement (cm) - Length 0.2 -Area of Debridement (cm) - Width 0.4 -Total Square (Area) (cm) 0.08 -Tunneling No -Undermining/Tunneling No -Circular Undermining No -Wound/Ulcer Outcome Not Healed Healed- Epithelialized -Ulcer Cleansing Rinsed/ Irrigated with Saline -Foul Odor after Cleansing No -Bioengineered Tissue No -Bleeding Controlled with Pressure -Treatment Response Procedure Tolerated Well -Debridement - Subq, 1st 20sq cm No #6 R Dorsal -Procedure Performed No -Wound/Ulcer Outcome Healed- Epithelialized #5 L wrist -Procedure Performed No -Wound/Ulcer Outcome Healed- Epithelialized #3 R Ant Ankle -Time 08:30 08:45 -Correct Patient Yes Yes -Correct Side, Site, Position Yes Yes -Correct Procedure Yes Yes -Procedure Performed Yes Yes No -Type of Procedure Debridement Debridement -Clinical Debridement Subcutaneous Subcutaneous -Tissue Removed Subcutaneous Subcutaneous -Post Debridement (cm) - Length 0.5 0.4 -Post Debridement (cm) - Width 1.1 0.5 -Post Debridement (cm) - Depth 0.1 0.1 -Total Square (Post) (cm) 0.55 0.20 -Area of Debridement (cm) - Length 0.5 0.4 -Area of Debridement (cm) - Width 1.1 0.5 -Total Square (Area) (cm) 0.55 0.20 -Tunneling No No -Undermining/Tunneling No No -Circular Undermining No No -Wound/Ulcer Outcome Not Healed Not Healed Healed- Epithelialized -Ulcer Cleansing Rinsed/ Rinsed/ Irrigated with Irrigated with Saline Saline -Foul Odor after Cleansing No No -Bioengineered Tissue No No -Bleeding Controlled with Pressure Pressure -Treatment Response Procedure Procedure Tolerated Well Tolerated Well -Debridement - Subq, 1st 20sq cm Yes Yes #8 Right Lat ankle -Time 08:30 08:45 09:00 -Correct Patient Yes Yes Yes -Correct Side, Site, Position Yes Yes Yes -Correct Procedure Yes Yes Yes -Procedure Performed Yes Yes Yes -Type of Procedure Debridement Debridement Debridement -Clinical Debridement Subcutaneous Subcutaneous Subcutaneous -Tissue Removed Subcutaneous Subcutaneous Subcutaneous -Post Debridement (cm) - Length 0.8 0.5 0.3 -Post Debridement (cm) - Width 0.5 0.4 0.3 -Post Debridement (cm) - Depth 0.1 0.1 0.1 -Total Square (Post) (cm) 0.40 0.20 0.09 -Area of Debridement (cm) - Length 0.8 0.5 0.3 -Area of Debridement (cm) - Width 0.5 0.4 0.3 -Total Square (Area) (cm) 0.40 0.20 0.09 -Tunneling No No No -Undermining/Tunneling No No No -Circular Undermining No No No -Wound/Ulcer Outcome Not Healed Not Healed Not Healed -Ulcer Cleansing Rinsed/ Rinsed/ Rinsed/ Irrigated with Irrigated with Irrigated with Saline Saline Saline -Foul Odor after Cleansing No No No -Bioengineered Tissue No No No -Bleeding Controlled with Pressure Pressure Pressure -Treatment Response Procedure Procedure Procedure Tolerated Well Tolerated Well Tolerated Well -Debridement - Subq, 1st 20sq cm No No Yes Pain Scale: 0-10 Numeric Is Patient Pain Free? Yes Yes Yes - Nurse 3 - General Ulcer D/C NN Start: 05/14/22 08:07 Freq: Status: Active Protocol: Activity Type Activity Date Activity User E-sign Co-sign Detail Recorded Client Recorded Date Recorded By Document 05/14/22 08:58 [id number] 05/14/22 08:59 Document 05/21/22 08:56 Desktop 05/21/22 08:57 Document 05/28/22 09:06 [id number] 05/28/22 09:07 05/14/22 05/21/22 05/28/22 08:58 08:56 09:06 Wound Care Center Nurse 3 #7 Right 1st Toe -Ulcer Cleansing Rinsed/ Rinsed/ Irrigated with Irrigated with Saline Saline -Foul Odor after Cleansing No No -Primary Dressing Applied Promogran -Other Dressing gel -Primary Dressing Covered/Secured with Dry Gauze, Dry Gauze Secured with Tape -Promogran 0 #5 L wrist -Ulcer Cleansing Rinsed/ Irrigated with Saline -Foul Odor after Cleansing No -Primary Dressing Applied C Hydrogel ($) -Primary Dressing Covered/Secured with Dry Gauze, Secured with Tape #3 R Ant Ankle -Ulcer Cleansing Rinsed/ Rinsed/ Rinsed/ Irrigated with Irrigated with Irrigated with Saline Saline Saline -Foul Odor after Cleansing No No No -Primary Dressing Applied Promogran -Other Dressing gel hydrogel -Primary Dressing Covered/Secured with Dry Gauze, Dry Gauze Dry Gauze, Secured with Secured with Tape Tape -Promogran 0 #8 Right Lat ankle -Ulcer Cleansing Rinsed/ Rinsed/ Rinsed/ Irrigated with Irrigated with Irrigated with Saline Saline Saline -Foul Odor after Cleansing No No No -Primary Dressing Applied Promogran -Other Dressing gel hydrogel -Primary Dressing Covered/Secured with Dry Gauze, Dry Gauze Dry Gauze, Secured with Secured with Tape Tape -Promogran 0 Pain Scale: 0-10 Numeric Is Patient Pain Free? 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 R anterior ankle/sanchez healed. Collagen hydrogel to R lateral malleolus wound and cover with dry gauze. Continue to apply collagen hydrogel to healed L wrist wound and pad/protect as new skin is still delicate. Return to clinic in 1 week or sooner as needed.
[2022-06-04 08:37] VITALS: BP 136/74; PULSE 69; RESP 16; TEMP 35.3
--- NOTE | 2022-06-04 13:39 | PCM.WC.PN ---
History of Present Illness Date of Service: 06/04/22 Chief Complaint: Left wrist wound Multiple bilateral lower extremity wounds History of Wound: Patient is new to [facility] but known to me from the vascular surgery clinic. 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 Patient was understandably quite ill following this and hospitalized for some time during which he had significant BLE edema at which point the wounds began to appear. They were overall stable for some time, and then he was hospitalized a few weeks ago for pneumonia, had increased BLE edema again, and wounds worsened/new ones appeared. Since then, he feels they are improved in appearance. The wrist wound appeared during the initial hospitalization for AAA, at that time he describes it initially as a hematoma which eventually developed into this chronic wound. Last week, he had significant erythema and pain in his RLE and was started on antibiotics. Venous duplex was also obtained to r/o DVT and this was negative. Erythema did improve with antibiotics. Patient still has pain in bilateral feet, worse right than left; bilateral feet/ankles are intermittently hypersensitive to touch. He notes continued mild BLE edema. He does not currently wear compression. Subjective Subjective Patient is doing very well, all original wounds are healed. He does have a small skin tear at the right ankle which occurred during his shower this morning. Otherwise, no F/C/N/V and no other new wounds. Objective Data Objective Data Vital Signs: Vital Signs Temp Pulse Resp BP O2 Del Method O2 Flow Rate 95.6 F L 69 16 136/74 H Room Air 2 06/04/22 08:37 06/04/22 08:37 06/04/22 08:37 06/04/22 08:37 06/04/22 08:37 05/08/22 00:43 Oxygen Flow Rate (L/min) 2 Oxygen Delivery Method Room Air Charges/Coding Visit Charges Office Visits / Consults: [id number] OV L3 Est Physical Exam Const alert, oriented x3 and no apparent distress General Appearance: cooperative, comfortable and well developed HEENT normocephalic, head/scalp atraumatic, hearing grossly normal bilaterally, external ears normal and external nose normal Eyes EOMs intact bilaterally General Eye: normal appearance of both eyes Neck full ROM General: normal visual inspection and trachea midline Resp normal respiratory effort, no retractions and no use of accessory muscles Effort and Inspection: able to speak in complete sentences and symmetric chest movement Cardio regular rate and regular rhythm Peripheral Pulses: brachial pulses present and radial pulses present Extremity Extremity Narrative: Patient has sensitivity to light touch, especially on R foot. Skin Wounds: wounds noted Wound Narrative: All wounds healed. Small, superficial skin tear to the R ankle without significant redness, drainage, bleeding. 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 Small skin tear to right ankle, very superficial. Advise patient to apply collagen hydrogel and cover with gauze until healed. I expect this will heal pretty quickly and without issue. No need to return for f/u of this skin tear. Patient was agreeable to this plan. Patient is discharged from [facility]. He will return as needed.
== END 2022-06-04 13:29 | disposition home or self-care (01) ==
LOC: WC 09:00
PROVIDERS: PCP Family Medicine; Visit Provider Physician Assistant
DX: E11.621 Type 2 diabetes mellitus with foot ulcer (principal); E11.622 Type 2 diabetes mellitus with other skin ulcer; L97.312 Non-pressure chronic ulcer of right ankle with fat layer exposed; L97.512 Non-pressure chronic ulcer of other part of right foot with fat layer exposed; M79.671 Pain in right foot; R60.0 Localized edema; M79.672 Pain in left foot
CPT/HCPCS: 11042; 99213; G0463

== ENCOUNTER → 2022-08-16 | Outpatient (CLI) | payer MEDICARE, SELFPAY ==
[2022-08-16 10:12] LABS: Hematocrit 37.6 % (40-54); Hemoglobin 11.7 g/dL (13.0-16.5); Mean Corp Hgb Conc 31.1 g/dL (32-36); Mean Corpuscular Hgb 28.5 pg (27.0-32.0); Mean Corpuscular Volume 91.7 fL (80-94); Mean Platelet Vol. 8.9 fl (6.2-12.0); Platelet Count 181 K/mm3 (150-450); RBC Distribution Width CV 14.2 % (11.6-14.6); RBC Distribution Width SD 47.7 fl (35.1-43.9); RET-HE 31.1 pg (30-35); Reticulocyte Count 0.92 % (0.5-1.5)
[2022-08-16 10:42] LABS: BNP,B-Type NATRIURETIC PEPTIDE 196.1 pg/mL (0-100)
[2022-08-16 10:46] LABS: Vitamin B12 188 pg/mL (211-911)
[2022-08-16 11:00] LABS: ALB/GLOB Ratio 0.9 RATIO (0.9-2.4); AST(SGOT) 11 U/L (15-37); Alanine Aminotransfer ALT/SGPT 11 U/L (16-61); Albumin, Serum 3.3 g/dL (3.2-5.0); Alkaline Phosphatase 68 U/L (45-117); Anion Gap 3 (5-15); BUN 21 mg/dL (7-18); BUN/Creat Ratio 12.7 RATIO (10-20); Calcium,Total 8.6 mg/dL (8.5-10.1); Chloride 106 mmol/L (98-107); Creatinine, Serum 1.66 mg/dL (0.70-1.30); EST Glomerular Filtration Rate 43 mL/min (>60); Est Glom Filt Rate - Afr Amer 53 mL/min (>60); Ferritin 49 ng/mL (26-388); Globulin 3.7 g/dL (2.2-4.2); Glucose 136 mg/dL (74-106); Iron 45 ug/dL (65-175); Iron Binding Capacity,Total 323 ug/dL (250-450); Sodium Level 138 mmol/L (136-145); Thyroid Stim Hormone (TSH) 1.68 uIU/mL (0.358-3.74)
== END | disposition home or self-care (01) ==
LOC: MFPLAB 08:22
PROVIDERS: PCP Family Medicine; Visit Provider Family Medicine
DX: E11.9 Type 2 diabetes mellitus without complications (principal); D64.9 Anemia, unspecified
CPT/HCPCS: 36415; 80053; 82607; 82728; 83540; 83550; 83880; 84443; 85027; 85045

== ENCOUNTER 2022-12-14 09:48 | Outpatient (CLI) | payer MEDICARE, SELFPAY ==
[2022-12-14 12:16] LABS: Hematocrit 38.2 % (40-54); Hemoglobin 11.4 g/dL (13.0-16.5); Mean Corp Hgb Conc 29.8 g/dL (32-36); Mean Corpuscular Hgb 26.9 pg (27.0-32.0); Mean Corpuscular Volume 90.1 fL (80-94); Platelet Count 278 K/mm3 (150-450); RBC Distribution Width CV 14.3 % (11.6-14.6); RBC Distribution Width SD 47.3 fl (35.1-43.9); Red Blood Count 4.24 M/mm3 (4.6-6.2); White Blood Count 7.9 K/mm3 (4.4-11.0)
[2022-12-14 12:39] LABS: BNP,B-Type NATRIURETIC PEPTIDE 71.3 pg/mL (0-100)
[2022-12-14 12:40] LABS: Anion Gap 4 (5-15); BUN 29 mg/dL (7-18); BUN/Creat Ratio 17.7 RATIO (10-20); Calcium,Total 8.9 mg/dL (8.5-10.1); Chloride 104 mmol/L (98-107); Creatinine, Serum 1.64 mg/dL (0.70-1.30); EST Glomerular Filtration Rate 44 mL/min (>60); Est Glom Filt Rate - Afr Amer 53 mL/min (>60); Glucose 125 mg/dL (74-106); Iron 31 ug/dL (65-175); Potassium 4.6 mmol/L (3.5-5.1); Sodium Level 137 mmol/L (136-145)
[2022-12-14 12:41] LABS: PTHIN 83.4 pg/mL (18.4-80.1)
[2022-12-14 12:44] LABS: Vitamin D,25 Hydroxy 28.8 ng/mL
== END 2022-12-14 23:59 | disposition home or self-care (01) ==
LOC: MFPLAB 09:50
PROVIDERS: PCP Family Medicine; Visit Provider Family Medicine
DX: E11.22 Type 2 diabetes mellitus with diabetic chronic kidney disease (principal); I50.9 Heart failure, unspecified; N18.9 Chronic kidney disease, unspecified; E55.9 Vitamin D deficiency, unspecified
CPT/HCPCS: 36415; 80048; 82306; 83540; 83880; 83970; 85027

== ENCOUNTER → 2022-12-15 | Outpatient (CLI) | payer MEDICARE, SELFPAY ==
--- NOTE | 2022-12-15 13:34 | CT_ITS ---
STUDY: CT ABDOMEN AND PELVIS WITHOUT CONTRAST REASON FOR EXAM: Male, 72 years old. s/p AAA repair, CKD -- NONcontrast RADIATION DOSAGE (If Supplied By Facility): CTDIvol = ( 5.70 ) mGy, DLP = ( 345.01 ) mGycm TECHNIQUE: Transaxial images were obtained from the dome of the diaphragm to the symphysis pubis without oral contrast, and without intravenous contrast. Sagittal and coronal images were reconstructed. Individualized dose optimization techniques were used for this CT. COMPARISON: Comparison is made with prior study December 28, 2021. FINDINGS: The visualized lung bases are unremarkable. Coronary artery calcification. Normal liver. Findings suggestive of small gallstones. There are multiple benign calcified granulomata of the spleen. Normal pancreas. Normal bilateral adrenal glands. Normal right kidney. The left kidney is displaced superiorly due to the size of the aneurysm. Normal visualized stomach. Normal small intestine. Normal colon. The appendix is visualized and appears normal. There is evidence of a large infrarenal abdominal aortic aneurysm. The transverse dimension is 11.3 cm. The craniocaudal dimension is 10.2 cm. The aneurysm extends into the left side of the abdomen extending into the lower left retroperitoneal region. This may represent a leaking aneurysm. The patient has a history of prior aneurysmal repair most likely a aortic biiliac graft. Normal inferior vena cava. Normal retroperitoneum. Normal urinary bladder. Prostatic calcification. Moderate size bilateral inguinal hernias right greater than left containing nondilated colon. There are diffuse degenerative changes of the visualized lumbar spine. CT/Abdomen/Pelvis without Cont IMPRESSION: Large infrarenal abdominal aortic aneurysm as described. The patient has a history of prior aneurysmal repair. This most likely secondary to prior aortobiiliac grafting. This may represent a leaking graft. Findings suggestive of small gallstones. Electronically Signed: Lebron Briseno MD at 14:17 EST ,
== END | disposition home or self-care (01) ==
PROVIDERS: PCP Family Medicine; Referring Provider Physician Assistant; Visit Provider Physician Assistant
DX: I71.43 Infrarenal abdominal aortic aneurysm, without rupture (principal); N18.9 Chronic kidney disease, unspecified
CPT/HCPCS: 74176

== ENCOUNTER → 2022-12-22 | Outpatient (CLI) | payer MEDICARE, SELFPAY ==
--- NOTE | 2022-12-22 08:47 | AAVD_ITS ---
Reason For Study: S/P AAA w/repair Aorta Measurements Aorta Doppler Measurements Proximal aorta measures2.67 x 2.59cm. in cross- Peak systolic flow velocities within the proximal sectional axis. aorta measure 40.4 cm/sec. Proximal aorta measures2.68cm. in longitudinal Peak systolic flow velocities within the mid aorta axis. measure 33 cm/sec. Aorta mid, true lumen, 2.62 x 2.64 x 2.38 cm. Peak systolic flow velocities within the distal Aorta mid, residual sac, 7.37 x 12.34 x 7.19 cm. aorta measure 30.6 cm/sec. Aorta distal, true lumen, 2.44 x 2.32 x 2.47 cm. Aorta distal, residual sac, 6.51 x 11.07 x 5.6 cm. Left Iliac Artery Left iliac artery measures 0.75 x 0.65 cm. in the cross-sectional axis. Left iliac artery measures 0.75 cm. in the longitudinal axis. Peak systolic velocity in the left iliac artery measures 77.5 cm/sec. Right Iliac Artery Right iliac artery measures 0.75 x 0.84 cm. in the cross-sectional axis. Right iliac artery measures 0.91 cm. in the longitudinal axis. Peak systolic velocity in the right iliac artery measures 100.8 cm/sec. Procedure Aorta IVC Iliac vasculature or bypass grafts [id number]. Exam performed in department. Preliminary report given to Tonia ACUNA. VL/Abd Aortic/IVC Duplex scan Interpretation Summary Patent aorto-iliac bypass graft with normal velocities and no evidence of steno sis. Heterogenous collection surrounding graft, 6.51 x 11.07 x 5.6 cm with no flow i dentified. Ordering Physician: Tonia Doyle Referring Physician: Andrés Carrasco MD Performed By: Hiwot Ferrari RVT
== END | disposition home or self-care (01) ==
LOC: CVS 08:46
PROVIDERS: PCP Family Medicine; Referring Provider Physician Assistant; Visit Provider Physician Assistant
DX: I71.42 Juxtarenal abdominal aortic aneurysm, without rupture (principal); Z86.79 Personal history of other diseases of the circulatory system; Z98.890 Other specified postprocedural states
CPT/HCPCS: 93978

== ENCOUNTER → 2023-02-10 | Outpatient (CLI) | payer MEDICARE, SELFPAY ==
--- NOTE | 2023-02-10 14:02 | CT_ITS ---
STUDY: LOW DOSE CT LUNG CANCER SCREENING REASON FOR EXAM: Male, 72 years old. smoking RADIATION DOSAGE (If Supplied By Facility): CTDIvol = ( 1.59 ) mGy, DLP = ( 57.98 ) mGycm TECHNIQUE: No contrast was administered. Low dose technique was utilized (average mAS-38 and kVp 120). 1.25 mm axial source images with a slice interval of 1.25-mm were reconstructed in lung windows. 2.5 mm axial source images with a slice interval of 2.5-mm were reconstructed in lung windows. 5.0 mm axial source images with a slice interval of 5.0-mm were reconstructed in soft tissue windows. COMPARISON: 08/20/2021 Status post median sternotomy. Emphysema: Mild emphysema. 4 mm noncalcified nodule in the posterior left upper lobe lungs on image 75 and follow-up CT is recommended in 12 months document stability. Endobronchial lesion: None Aorta: Calcified plaque in the aortic arch but no aortic aneurysm. CORONARY ARTERIES: Coronary artery calcification is seen. Heart: No cardiomegaly Pulmonary artery: Normal Mediastinal nodes: Normal Other chest and abdominal findings: None CT/Low Dose CT Lung Screening IMPRESSION: Lung-RADS category 2 - Continue annual screening with LDCT in 12 months. IMPORTANT NOTES FOR USE: ACR Lung-RADS Version 1.1 Assessment Categories Release Date: 2018 Category: Coded 0-4 bases on nodule(s) with highest degree of suspicion. Negative screen is defined as categories 1 and 2; a positive screen is defined as categories 3 and 4. Category 3 and 4A nodules that are unchanged on interval CT should be coded as category 2, and individuals returned to screening in 12 months. Category 4X: Category 3 or 4 nodules with additional imaging findings that increase the suspicion of lung cancer, such as spiculation, GGN that doubles in size in 1 year, enlarged lymph notes, etc. Category Modifiers: S (significant finding unrelated to lung cancer) Electronically Signed: Addison Fernández MD at 23:51 EST ,
== END | disposition home or self-care (01) ==
LOC: CT 13:58
PROVIDERS: PCP Family Medicine; Referring Provider Nurse Practitioner Acute Care; Visit Provider Nurse Practitioner Acute Care
DX: Z12.2 Encounter for screening for malignant neoplasm of respiratory organs (principal); F17.210 Nicotine dependence, cigarettes, uncomplicated
CPT/HCPCS: 71271

== ENCOUNTER → 2023-02-28 | Outpatient (CLI) | payer MEDICARE, SELFPAY ==
[2023-02-28 11:37] LABS: AST(SGOT) 13 U/L (15-37); Alanine Aminotransfer ALT/SGPT 12 U/L (16-61); Albumin, Serum 3.4 g/dL (3.2-5.0); Alkaline Phosphatase 84 U/L (45-117); Bilirubin, Direct 0.11 mg/dL (0.00-0.30); Cholesterol 119 mg/dL (200); High Density Lipoprotein 49 mg/dL; Protein, Total 7.4 g/dL (6.4-8.2); Triglycerides 100 mg/dL; Very Low Density Lipoprotein 20 mg/dL (5-40)
== END | disposition home or self-care (01) ==
LOC: LAB 10:14
PROVIDERS: PCP Family Medicine; Referring Provider Nurse Practitioner Gerontology; Visit Provider Nurse Practitioner Gerontology
DX: E78.5 Hyperlipidemia, unspecified (principal)
CPT/HCPCS: 36415; 80061; 80076

== ENCOUNTER → 2023-04-29 | Outpatient (CLI) | payer MEDICARE, SELFPAY ==
--- NOTE | 2023-04-29 09:33 | ECHOD_ITS ---
Reason For Study: VALVE REPLACEMENT EVAL Procedure This was a 2D Doppler, Color Flow transthoracic echocardiogram. Exam performed in department. Left Ventricle Normal size and thickness. Left ventricular systolic function is normal. The estimated ejection fraction is 55 %. No regional wall motion abnormalities noted. Right Ventricle Normal RV size. Normal systolic function. Atria Normal left atrium. Normal right atrium. Mitral Valve Normal mitral valve. Tricuspid Valve Normal tricuspid valve. Aortic Valve Peak aortic valve gradient 25 mmHg. Mean aortic valve gradient 13 mmHg. Mild (1+) aortic valve insufficiency. Normal prosthetic aortic valve. Great Vessels Normal aortic root. The pulmonary artery is normal size. Inferior vena cava collapse with respiration. Pericardium/Pleural No pericardial effusion. MMode/2D Measurements & Calculations LVIDd: 5.5 cm IVSd: 1.2 cm LVOT diam: 1.6 cm LVIDs: 3.9 cm LVPWd: 0.93 cm LVOT area: 1.9 cm2 RVDd: 3.3 cm FS: 29.6 % LAV(MOD-bp): 65.9 ml LVAd ap4: 24.6 cm2 SV(MOD-sp4): 29.7 ml LAV(MOD-bp) Indexed: 36.8 ml/m2 LVLd ap4: 7.3 cm LAV(MOD-sp2): 72.8 ml EDV(MOD-sp4): 69.4 ml LAV(MOD-sp4): 56.1 ml EDV(sp4-el): 70.6 ml LVAs ap4: 17.7 cm2 LVLs ap4: 6.7 cm ESV(MOD-sp4): 39.7 ml ESV(sp4-el): 39.9 ml EF(MOD-sp4): 42.8 % EF(sp4-el): 43.5 % SV(sp4-el): 30.7 ml LA dimension(2D): 4.3 cm LA A4 area: 20.6 cm2 RA A4 area: 16.8 cm2 TAPSE: 1.1 cm Time Measurements MV dec time: 0.21 sec Doppler Measurements & Calculations MV E max pasha: 80.1 cm/sec Lat Peak E' Pasha: 7.4 cm/sec Med Peak E' Pasha: 6.3 cm/sec MV A max pasha: 86.2 cm/sec E/E' lat: 10.8 E/E' med: 12.6 MV E/A: 0.93 MV V2 max: 91.9 cm/sec Ao V2 max: 249.2 cm/sec MV max P.4 mmHg MV dec slope: 376.1 cm/sec2 Ao max P.9 mmHg MV V2 mean: 53.0 cm/sec Ao V2 mean: 169.0 cm/sec MV mean P.3 mmHg Ao mean P.2 mmHg MV V2 VTI: 41.6 cm Ao V2 VTI: 61.8 cm AV (velocity ratio): 0.96 MVA(VTI): 2.7 cm2 JAVID(I,D): 1.8 cm2 JAVID(V,D): 1.6 cm2 LV V1 max: 204.5 cm/sec SV(LVOT): 113.8 ml LV V1 max P.7 mmHg LV V1 mean P.2 mmHg LV V1 mean: 150.0 cm/sec LV V1 VTI: 59.7 cm ECHO/Echo Complete Interpretation Summary Normal size and thickness. Left ventricular systolic function is normal. The estimated ejection fraction is 55 %. Mean aortic valve gradient 13 mmHg. Normal prosthetic aortic valve. Mild (1+) aortic valve insufficiency. Ordering Physician: Florencia Alexander Referring Physician: Florencia Alexander Performed By: Alejandrina Causey RCS
== END | disposition home or self-care (01) ==
PROVIDERS: PCP Family Medicine; Referring Provider Nurse Practitioner Gerontology; Visit Provider Nurse Practitioner Gerontology
DX: I35.0 Nonrheumatic aortic (valve) stenosis (principal); Z95.2 Presence of prosthetic heart valve
CPT/HCPCS: 93306

== ENCOUNTER 2023-11-09 09:22 | Day surgery (SDC) | payer MEDICARE, SELFPAY ==
--- NOTE | 2023-10-27 12:05 | EKG12_ITS ---
Test Reason : PRE OP Blood Pressure : / mmHG Vent. Rate : 054 BPM Atrial Rate : 054 BPM P-R Int : 162 ms QRS Dur : 088 ms QT Int : 414 ms P-R-T Axes : 080 083 084 degrees QTc Int : 392 ms Sinus bradycardia Otherwise normal ECG Confirmed by Evgeny Jacobo ([id number]), news video editor ABIDA RODAS ([id number]) on 10/31/2023 10:18:03 AM Referred By: Marquise Barillas Confirmed By:Evgeny Jacobo
[2023-10-27 12:56] LABS: Hematocrit 40.7 % (40-54); Mean Corp Hgb Conc 31.9 g/dL (32-36); Mean Corpuscular Hgb 29.5 pg (27.0-32.0); Mean Corpuscular Volume 92.3 fL (80-94); Mean Platelet Vol. 8.6 fl (6.2-12.0); Platelet Count 164 K/mm3 (150-450); RBC Distribution Width CV 13.3 % (11.6-14.6); RBC Distribution Width SD 45.3 fl (35.1-43.9); Red Blood Count 4.41 M/mm3 (4.6-6.2); White Blood Count 6.8 K/mm3 (4.4-11.0)
[2023-10-27 13:30] LABS: Anion Gap 4 (5-15); BUN 26 mg/dL (7-18); BUN/Creat Ratio 17.7 RATIO (10-20); Calcium,Total 8.7 mg/dL (8.5-10.1); Chloride 104 mmol/L (98-107); Creatinine, Serum 1.47 mg/dL (0.70-1.30); EST Glomerular Filtration Rate 50 mL/min (>60); Est Glom Filt Rate - Afr Amer 60 mL/min (>60); Glucose 103 mg/dL (74-106); Potassium 4.4 mmol/L (3.5-5.1); Sodium Level 136 mmol/L (136-145)
[2023-11-09] VITALS (9 sets, daily range): BP systolic 123–163; BP diastolic 70–81; PULSE 54–63; RESP 16–18; TEMP 36.3–36.5; O2SAT 92–100; BMI 25.4
[2023-11-09] MEDS: Lactated Ringers 1,000 ML 15 ML IV (09:43)
--- NOTE | 2023-11-09 09:50 | HP.PCM_ITS ---
History and Physical Date of Admission: 11/09/23 Intake Vital Signs 08/24/2408:12 10/24/2407:27 Height 5 ft 6 in 5 ft 6 in Weight: 159 lb 5 oz 160 lb BMI 25.7 25.8 BP 111/65 165/75 H Blood Pressure Location Lt brachial Rt brachial Position Sitting Sitting Respiration 16 18 Pulse 51 L 62 Pulse Source Monitor Palpation Temp 97.2 F L Temp Source Temporal Pulse Oximetry (%) 98 Oxygen Delivery Method room air Intake Visit Reasons: BILATERAL HERNIA Chief Complaint: bilateral hernia Is patient in pain?: No Allergies No Known Allergies Allergy (Verified 10/24/23 08:27) Medications ?Medication ?Instructions ?Recorded ?Confirmed ?Type aspirin 81 mg tablet,delayed 81 mg PO DAILY heart health 03/02/22 10/24/23 History release rosuvastatin 5 mg tablet (Crestor) 5 mg PO DAILY cholesterol 03/02/22 10/24/23 History metoprolol tartrate 25 mg tablet 12.5 mg (1/2 x 25 mg) PO BID #90 01/14/23 10/24/23 Rx tabs fluticasone fur. 200 mcg-umeclid 1 inh inhalation DAILY #60 ea 01/27/23 10/24/23 Rx 62.5 mcg-vilant 25 mcg inhalat.powder (Trelegy Ellipta) amlodipine 5 mg tablet 5 mg PO DAILY #30 tabs 02/28/23 10/24/23 Rx Have you fallen in the past year?: No PFSH Medical History Stage 3b chronic kidney disease (CKD) Thrombocytopenia Chronic kidney insufficiency Pleural effusion Secondary pulmonary arterial hypertension Atherosclerotic heart disease of [place] coronary artery without angina pectoris Intention tremor Carotid stenosis, bilateral Hyperlipidemia Nonrheumatic aortic (valve) stenosis Essential hypertension Tobacco dependence Bilateral inguinal hernia Left carotid bruit Abdominal aortic aneurysm (AAA) Anemia Subcutaneous mass of back PUD (peptic ulcer disease) Cough Arthritis Surgical History S/P AAA repair 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) History of left heart catheterization (11/27/18) History of aortic valve replacement (02/12/19) No history of previous surgery Family History Sister AsthmaMother Arthritis DiabetesBrother Cancer Unsure what kind- just a lump on his neck Social History Smoking Status: Current some day smoker tobacco type: cigarettes quit status: has quit before alcohol intake: never substance use type: does not use caffeine: Yes Type: coffee Number of servings: 3 what type of physical activity do you participate in: other frequency: 3-4 times per week seatbelt use: always HPI HPI HPI: Patient is a 73-year-old male with the bilateral inguinal hernias. He is here because these hernias are growing larger. He says they have been there for at least 5 years. He had an open infrarenal abdominal aortic aneurysm repair about 1 year ago. ROS General General: No weight change, appetite, fatigue, colon cancer, breast cancer or weakness HEENT HEENT: No difficulty swallowing, eye injury, eye surgery, swollen glands or hoarseness Endo Endocrine: Yes Hair loss; No thyroid disease, diabetes mellitus, thyroid cancer, heat intolerance or cold intolerance Skin Skin: Yes rash; No changing moles Musc Musculoskeletal: Yes joint pain; No back problems, arthritis, rheumatoid arthritis or gout Cardio Cardiovascular: Yes heart disease, high blood pressure and shortness of breat with exertion; No murmur, pacemaker, atrial fibrillation, heart attack, heart stent, palpitations or chest pain Psych Psychiatric: No depression, anxiety or hearing voices Resp Respiratory: Yes shortness of breath, No sleep apnea, No cough, No COPD, Yes asthma, No emphysema and No wheezing Gastro Gastrointestinal: No abdominal pain, No nausea or vomiting, No diarrhea, No constipation, No blood in stool, No acid reflux, No hemorrhoids, No ulcers, No gallbladder problem and No black,tarry stools Miguel A Hematologic: No blood thinners, No blood disorders, No bleeding, No anemia and No blood clots Neuro Neurologic: No system reviewed and no additional complaints, except as documented, No as per HPI, No abnormal gait, No abnormal hearing, No abnormal movements, No abnormal speech, No behavioral changes, No burning sensations, No confusion, No convulsions, No disequilibrium, No dizziness, No localized weakness, No frequent falls, No headache(s), No lack of coordination, No loss of vision, No memory loss, Yes numbness, No other visual disturbances, No radicular pain, No restless legs, No sensory deficit, No syncope, Yes tingling, No tremor(s), No weakness and No other Exam Const General: cooperative Orientation: alert and oriented x3 HENMT Head: normal to inspection Neck Neck: normal visual inspection and full ROM Chest Chest palpation & inspection: normal inspection of the chest Resp Effort & Inspection: normal respiratory effort Auscultation: clear to auscultation bilaterally Cardio Rate: regular rate Rhythm: regular rhythm GI Inspection: non-distended Palpation: soft, hernia indirect inguinal bilaterally and nontender Skin General: no rashes or lesions noted Neuro General: patient alert and patient oriented x3 Extrem General: full ROM Psych Appearance: grossly normal Mental Status: mental status grossly normal Assessment and Plan Assessment and Plan (1) Bilateral inguinal hernia: Status: Acute Qualifiers: Obstruction and gangrene presence: without obstruction or gangrene Recurrence: non-recurrent Qualified Code(s): K40.20 - Bilateral inguinal hernia, without obstruction or gangrene, not specified as recurrent Plan: Patient has large bilateral inguinal hernias containing bowel. Due to his prior surgeries I would say that he is not a candidate for laparoscopic approach. I discussed open approach with him and due to the size of the hernia on the right especially I would recommend open repair. I will do this in a staged fashion and addressed the left at a later date. I discussed the procedure in detail as well as the risks including but not limited to bleeding, infection, injury other organs,, chronic groin pain, mesh placement. Patient understands all the risks and is willing to proceed. Patient will hold his aspirin for 5 days prior to the surgery. Marquise Barillas MD Pager: [facility] [address] [place] [address], [address] [place] [address] Office: I have examined the patient and the H&P has been reviewed. There are no clinical changes since date of exam.
--- NOTE | 2023-11-09 10:20 | PCM.PRE.AN2 ---
ASA Classification* ASA Classification ASA Classification: 3 Assessment & Plan Anesthesia* Anesthesia Assessment Anesthesia Assessment: Discussed sedation and/or anesthesia options, risks, benefits, and alternatives with patient/parents/legal guardian/POA. Questions invited. The patient/parents/legal guardian/POA seems to understand and agrees to proceed with anesthesia plan. Reviewed the physical assessment, medical history, allergy history and patient home medications list prior to surgery/procedure/anesthetic and documented any changes. Performed airway and anesthesia risk assessments. Anesthesia Type Anesthesia Type: General (see written pre anesthesia record for full assessment) Anesthesia Focused Assessment* Temperature: 97.7 F Pulse Rate: 60 Blood Pressure: 156/73 Respiratory Rate: 16 Pulse Ox: 98 Airway Assessment Mouth opens: >3 cm Mallampati Score: II Focused Labs Anesthesia Preop lab: CBC WBC 6.8 K/mm3 (4.4-11.0) 10/27/23 12:41 RBC 4.41 M/mm3 (4.6-6.2) L 10/27/23 12:41 Hgb 13.0 g/dL (13.0-16.5) 10/27/23 12:41 Hct 40.7 % (40-54) 10/27/23 12:41 Plt Count 164 K/mm3 (150-450) 10/27/23 12:41 CHEMISTRY Potassium 4.4 mmol/L (3.5-5.1) 10/27/23 12:41 Sodium 136 mmol/L (136-145) 10/27/23 12:41 Magnesium 1.9 mg/dL (1.6-2.6) 03/03/22 05:36 Phosphorus 4.9 mg/dL (2.5-4.9) 03/03/22 05:36 BUN 26 mg/dL (7-18) H 10/27/23 12:41 Creatinine 1.47 mg/dL (0.70-1.30) H 10/27/23 12:41 Glucose 103 mg/dL (74-106) 10/27/23 12:41 TSH 1.68 uIU/mL (0.358-3.74) 08/16/22 08:25 COAG PT 12.8 SECONDS (11.7-14.9) 11/22/18 12:12 Pre-Assessment Diagnosis/Proposed Procedure Planned Operative Procedure(s): (R) Open Hernia, Inguinal w/ Mesh Anesthesia History 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 When Was Last Pacemaker Check QUESTION #4 FULL TEXT: You/Your Family Experience fever (hyperthermia) with Anesthesia Last Oral Intake Last Oral intake: Last Oral Intake NPO since 05:15 11/09/23 09:40 Meds taken in AM with sips of Yes 11/09/23 09:40 water? 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 Female No 10/27/23 08:36 HX of Motion Sickness No 10/27/23 08:36 HX of N/V After Surgery No 10/27/23 08:36 Non-Smoker No 10/27/23 08:36 Duration of Surgery greater Yes 10/27/23 08:36 than 60 minutes Number of Risk Factors 1 10/27/23 08:36 PONV Score Low Risk 10/27/23 08:36 Height & Weight Height & Weight: Anesthesia: Height & Weight Height 5 ft 6 in 11/09/23 09:40 Weight: 71.6 kg 11/09/23 09:40 Body Mass Index (BMI) 25.4 11/09/23 09:40 Respiratory Assessment Respiratory Assessment - rotor casting machine operator: Respiratory Tract Infection Hx - 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 Has anyone observed you stop No 10/27/23 08:36 breathing during sleep? STOP Results Negative 10/27/23 08:36 QUESTION #5 FULL TEXT : Do you snore loudly (louder than talking or can be heard through closed doors)? 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 Specify any problems Hx of Preganancy in last 3 N/A 10/27/23 08:36 Months Nurse Filling Out Transfusion VLEHMAN 10/27/23 08:36 & Questions: Date: 10/27/23 10/27/23 08:36 Time: 08:45 10/27/23 08:36 Patient unable to answer at this time (ie. 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: /Reproductive Hx- rotor casting machine operator Hx Now Gestational Age (in weeks): EDC: Hx Hx Para Hx Section SAB Active Medications Active Medications: Current Medications Generic Name Dose Route Start Last Admin Trade Name Freq PRN Reason Stop Dose Admin Cefazolin Sodium 2 gm/ Sodium 110 mls @ 150 mls/hr 11/09/23 11:00 Chloride IV 11/09/23 11:43 PREOP ONE Lactated Ringer's 1,000 mls @ 15 mls/hr 11/09/23 09:45 11/09/23 09:43 IV 15 mls/hr .Q48H YARY Administration PFSH Medical History Wears dentures Wears glasses Bruising Easy bruising High cholesterol Smoker Shortness of breath on exertion History of echocardiogram Cardiology follow-up encounter Stage 3b chronic kidney disease (CKD) Thrombocytopenia Chronic kidney insufficiency Pleural effusion Secondary pulmonary arterial hypertension Atherosclerotic heart disease of [place] coronary artery without angina pectoris Intention tremor Carotid stenosis, bilateral Hyperlipidemia Nonrheumatic aortic (valve) stenosis Essential hypertension Tobacco dependence Bilateral inguinal hernia Left carotid bruit Abdominal aortic aneurysm (AAA) Anemia Subcutaneous mass of back PUD (peptic ulcer disease) Cough Arthritis Home Medications ?Medication ?Instructions ?Recorded ?Last Taken ?Type aspirin 81 mg tablet,delayed 81 mg PO DAILY heart health 03/02/22 03/02/22 History release rosuvastatin 5 mg tablet (Crestor) 5 mg PO DAILY cholesterol 03/02/22 03/02/22 History metoprolol tartrate 25 mg tablet 12.5 mg (1/2 x 25 mg) PO BID #90 01/14/23 Unknown Rx tabs fluticasone fur. 200 mcg-umeclid 1 inh inhalation DAILY #60 ea 01/27/23 Unknown Rx 62.5 mcg-vilant 25 mcg inhalat.powder (Trelegy Ellipta) amlodipine 5 mg tablet 5 mg PO DAILY #30 tabs 02/28/23 Unknown Rx calcium carbonate 500 mg PO DAILY 10/27/23 Unknown History cholecalciferol (vitamin D3) 25 25 mcg PO DAILY 10/27/23 Unknown History mcg (1,000 unit) capsule Allergy/AdvReac Type Severity Reaction Status Date / Time No Known Allergies Allergy Verified 10/24/23 08:27 Family History Sister Asthma Mother Arthritis Diabetes Brother Cancer Unsure what kind- just a lump on his neck Surgical History History of cardiac catheterization S/P AAA repair 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) History of left heart catheterization (11/27/18) History of aortic valve replacement (02/12/19) Social History Smoking Status: Current some day smoker tobacco type: cigarettes quit status: has quit before alcohol intake: never substance use type: does not use caffeine: Yes Type: coffee Number of servings: 3 what type of physical activity do you participate in: other frequency: 3-4 times per week seatbelt use: always Review of Systems (Anesthesia) ROS Narrative System reviewed and no additional complaints, except as documented.
[2023-11-09] MEDS: Cefazolin 2 GM in 0.9% Normal Saline (100mL Bag) 100 ML IV (10:21)
--- NOTE | 2023-11-09 11:00 | HERN_PTH ---
PATIENT: ABELARDO ROBERTS LOC: [facility] – [place] U#:[id number] AGE/SX: 73/M ROOM: RE11/09/[address]: Dr. Marquise Barillas MD : 1950 BED: DIS: 11/09/2023 SPEC #: [id number] RECD: 11/09/23 13:13 STATUS: EZEQUIEL ESTELLA #: [id number] MORENITA: 11/09/23 11:[address]: Marquise Barillas DEPT: SURGICAL PATHOLOGY RECD BY: Bob Tapia ENTERED: 11/09/23 14:00 SP TYPE: Hernia OTHR DR: Dr. Andrés Carrasco MD Tissues: HERNIA Procedures: Surgery Specimen Level II HEADER OPERATION: Open hernia, inguinal with mesh PRE-OP DIAGNOSIS: Right inguinal hernia TISSUE SUBMITTED: Right inguinal hernia sac MICROSCOPIC DIAGNOSIS Right inguinal hernia sac: A piece of fibroadipose and fibroconnective tissue consistent with hernia sac with focal dense fibrosis, reactive changes and granulation tissue reaction. 11/10/2023 MICROSCOPIC DESCRIPTION Slides are reviewed. GROSS DESCRIPTION Received in fixative is one container labeled with the patient's name and designated Right inguinal hernia sac. The specimen consists of an irregular piece of yellow-pink soft tissue measuring 15.0 x 7.0 x 1.0cm. Sections do not reveal any mass lesions. Tap Out Operator sections are submitted in one cassette. 11/09/2023 TC:5 CPT:[id number]
[2023-11-09] MEDS: Bupiv/Epi 0.25% 30 ML Vial (11:18)
--- NOTE | 2023-11-09 11:35 | PCM.POST.ANE ---
Anesthesia: Postop Eval I Current Vital Signs Temperature: 97.4 F Pulse Rate: 63 Blood Pressure: 163/76 Respiratory Rate: 18 Pulse Ox: 100 Assessment Airway patent: Yes Spontaneous unlabored respirations: Yes nausea: No Vomiting: No Anesthesia Complication: No Fluid Hydration Crystalloid volume administer (ml): 500 Total IV fluid infused: 500 Progress Note Anesthesia document: Postop Eval 1 completed: Yes
--- NOTE | 2023-11-09 11:39 | PCM.OPRPT ---
Report of Operation Date of Procedure: 11/09/23 Pre-Operative Diagnosis: Right inguinal hernia Post-Operative Diagnosis: Right inguinal hernia Surgery/Procedure Performed:: Right inguinal hernia repair with mesh Type of Anesthesia: General/Regional Specimen's removed: Hernia sac Estimated Blood Loss (mL): 10 Description of Procedure: Patient was brought back to the operating room and general anesthesia was induced. The right groin was prepped and draped in usual sterile fashion. Incision was marked in the right inguinal region and then injected with local anesthetic. Incision was made with a scalpel and deepened to the external aponeurosis. The external aponeurosis was splayed out and very thinned due to the chronic hernia. After this was open the hernia sac was identified and used and brought into the incision the cord was identified as well and a [place] was placed around the cord. Next after the hernia sac was completely divided from the spermatic cord it was opened and then followed downward until bowel was encountered. The bowel was reduced and then the hernia sac was closed with a pursestring 0 silk suture. The hernia sac was amputated and sent for pathology. The stump of the hernia sac was reduced. Next a Bard keyhole mesh was sutured to the pubic tubercle using 2-0 PDS suture. It was then sutured to the shelving portion of the inguinal ligament laterally using interrupted 2-0 PDS sutures. It was sutured medially to the conjoined tendon using interrupted sutures. Next the tails were placed around the spermatic cord and sutured together using 2-0 PDS. They were tucked under the external aponeurosis. The area was irrigated and suctioned dry. The testicle was placed down into the inguinal canal and into the scrotum the Sadiq was removed. Next the external aponeurosis was reapproximated using a running 3-0 Vicryl suture and then Duran's fascia was closed using interrupted 3-0 Vicryl sutures. Local anesthetic was injected and the skin was closed with a running 4-0 Monocryl suture and Dermabond was applied. Scrotum was checked at the end of the case and contain both testicles. Patient was awoken and taken to PACU in stable condition. Grafts/Implants Used: Bard keyhole mesh Admit VTE Documentation VTE Mechan Device Prophylaxis: SCD's
--- NOTE | 2023-11-09 11:44 | DCINST_ITS ---
Discharge Instructions Procedure Hernia Diet Discharge Diet: Light diet - advance as tolerated Activity Discharge Activity: May Not Drive (for 2-3 days or while taking narcotic pain meds.) and May Shower (Tomorrow) Lifting Restrictions: 20 pounds for 6 weeks. Additional Activity Instructions:: Climbing stairs is fine, walking is encouraged. Sitting in bed may be uncomfortable. Sitting up using your lateral muscles (sitting up sideways) is usually more comfortable. Do not drive, work heavy equipment of sign legal documents for 24 hours. If your hernia repair was an inguinal repair, you may have scrotal swelling, an ice pack and/or athletic support can provide more comfort. Pain medications may cause nausea, you should typically eat light foods as you take your pain medications. Pain medications may also cause constipation. If you have difficulty with this, discuss with your doctor. Oxycodone for breakthrough pain, use Tylenol and ibuprofen to treat pain normally Resume aspirin tomorrow Dressing / Incision Call your doctor if your incision/area has: Continuous Slow Oozing, Sudden Increased Bleeding, Increased Pain/ Swelling, Increased Redness and Foul Smelling Discharge Call your doctor if you observe: Fever of 101 or Higher Suture Line Care: Avoid Pulling/Pushing and Avoid Pinching/Bending Cleanse incision/area with: Soap & Water Follow Up Care Please Follow Up With: Marquise Barillas MD When: Please call to schedule 2 week follow up appointment. [phone] Test Results: Test results from this visit will be discussed in further detail at your follow- up appointment, if applicable. Discharge Plan Admission Attending Provider: Marquise Barillas Primary Care Provider: Andrés Carrasco Instructions Print Language: Kinyarwanda Discharge Orders/Prescriptions Prescriptions: New oxycodone 5 mg Tablet 5 - 10 mg PO Q4H PRN PRN (Reason: Pain Score 4-10) 5 Days Qty: 20 0RF No Action amlodipine 5 mg tablet 5 mg PO DAILY Qty: 30 11RF Trelegy Ellipta 200-62.5-25 mcg blister with device 1 inh inhalation DAILY Qty: 60 6RF aspirin 81 mg tablet,delayed release (DR/EC) 81 mg PO DAILY rosuvastatin [Crestor] 5 mg tablet 5 mg PO DAILY calcium carbonate 500 mg calcium (1,250 mg) tablet 500 mg PO DAILY cholecalciferol (vitamin D3) 25 mcg (1,000 unit) capsule 25 mcg PO DAILY metoprolol tartrate 25 mg tablet 12.5 mg PO BID Qty: 90 3RF Other Ambulatory Orders: 12 Lead EKG (Routine) Timeframe: 20231027 Location: None Selected Ordered By: Dr. Kwame Belle Referrals / Follow Up: Andrés Carrasco MD [Primary Care Provider] - Disposition Disposition (needs filled in before D/C Order can be placed): Home, Self Care
--- NOTE | 2023-11-09 11:46 | POSTOPAN2_ITS ---
Anesthesia Postop Eval I Sum Postop Eval Completion status Anesthesia document: Postop Eval 1 completed: Yes Anesthesia Postop Eval I Summary Anesthesia Postop Eval I Summary: Anesthesia Postop Eval I: Assessment Summary Airway patent Yes 11/09/23 11:35 [email or web address] Spontaneous unlabored Yes 11/09/23 11:35 INTERNAL [email or web address] respirations Mental status nausea No 11/09/23 11:35 INTERNAL AUDITOR.CSIR Vomiting No 11/09/23 11:35 INTERNAL [email or web address] Anesthesia Postop Eval I: Fluid Summary Crystalloid volume administer 500 11/09/23 11:35 INTERNAL AUDITOR.CSIR (ml) Colloids volume administered ( ml) Blood Product volume administered (ml) Total IV fluid infused 500 11/09/23 11:35 INTERNAL [email or web address].CSIR Anesthesia Postop Eval I: Summary Notes Anesthesia Complication No 11/09/23 11:35 INTERNAL AUDITOR.CSIR Anesthesia Complication Comment: Post-operative progress note Anesthesia: Postop Eval II Evaluation Mental status: Awake Pain Level: 0 nausea: No Vomiting: No
--- NOTE | 2023-11-09 11:46 | PCM.POSTANE2 ---
Anesthesia Postop Eval I Sum Postop Eval Completion status Anesthesia document: Postop Eval 1 completed: Yes Anesthesia Postop Eval I Summary Anesthesia Postop Eval I Summary: Anesthesia Postop Eval I: Assessment Summary Airway patent Yes 11/09/23 11:35 MANDARIN [email or web address] Spontaneous unlabored Yes 11/09/23 11:35 MANDARIN TEACHER.CSIR respirations Mental status nausea No 11/09/23 11:35 MANDARIN TEACHER.CSIR Vomiting No 11/09/23 11:35 MANDARIN [email or web address].CSIR Anesthesia Postop Eval I: Fluid Summary Crystalloid volume administer 500 11/09/23 11:35 MANDARIN [email or web address].CSIR (ml) Colloids volume administered ( ml) Blood Product volume administered (ml) Total IV fluid infused 500 11/09/23 11:35 MANDARIN [email or web address].CSIR Anesthesia Postop Eval I: Summary Notes Anesthesia Complication No 11/09/23 11:35 MANDARIN [email or web address].CSIR Anesthesia Complication Comment: Post-operative progress note Anesthesia: Postop Eval II Evaluation Mental status: Awake Pain Level: 0 nausea: No Vomiting: No
[2023-11-09] MEDS: Acetaminophen 325 MG Tablet 650 MG PO (14:47)
== END 2023-11-09 16:20 | disposition home or self-care (01) ==
LOC: SDC 09:23 → AC 09:25
PROVIDERS: Anesthesiology; PCP Family Medicine; Referring Provider Surgery; Visit Provider Surgery
PROC: (CPT 49505; principal; 2023-11-09 10:45)
DX: K40.20 Bilateral inguinal hernia, without obstruction or gangrene, not specified as recurrent (principal); J44.9 Chronic obstructive pulmonary disease, unspecified; N18.32 Chronic kidney disease, stage 3b; E78.00 Pure hypercholesterolemia, unspecified; I12.9 Hypertensive chronic kidney disease with stage 1 through stage 4 chronic kidney disease, or unspecified chronic kidney disease; I25.10 Atherosclerotic heart disease of native coronary artery without angina pectoris; Z79.899 Other long term (current) drug therapy; Z79.82 Long term (current) use of aspirin; Z95.1 Presence of aortocoronary bypass graft; F17.210 Nicotine dependence, cigarettes, uncomplicated
CPT/HCPCS: 49505; 00830; 36415; 80048; 85027; 88302; 93005; J7120; C1781; J2405

== ENCOUNTER 2024-01-18 09:35 | Day surgery (SDC) | payer MEDICARE, SELFPAY ==
[2024-01-18] VITALS (10 sets, daily range): BP systolic 134–163; BP diastolic 64–75; PULSE 48–57; RESP 15–16; TEMP 36.2–36.6; O2SAT 90–100; BMI 25.2
--- NOTE | 2024-01-18 | HERN_PTH ---
PATIENT: ABELARDO ROBERTS LOC: [facility] U#:[id number] AGE/SX: 73/M ROOM: RE01/18/[address]: Dr. Marquise Barillas MD : 1950 BED: DIS: 01/18/2024 SPEC #: [id number] RECD: 01/18/24 12:11 STATUS: EZEQUIEL REVijaya #: [id number] MORENITA: 01/18/24 00:[address]: Marquise Barillas DEPT: SURGICAL PATHOLOGY RECD BY: Yadira Duong ENTERED: 01/18/24 13:52 SP TYPE: Hernia OTHR DR: Dr. Andrés Carrasco MD Tissues: HERNIA Procedures: Surgery Specimen Level II HEADER OPERATION: Hernia, open inguinal with mesh PRE-OP DIAGNOSIS: Left inguinal hernia TISSUE SUBMITTED: Left hernia sac and contents MICROSCOPIC DIAGNOSIS Left hernia sac and contents, herniorrhaphy: Benign fibrofatty tissue consistent with hernia sac and contents. AM.mr 01/19/2024 MICROSCOPIC DESCRIPTION Slides are reviewed. GROSS DESCRIPTION Received in fixative is one container labeled with the patient's name and designated Left hernia sac and contents. The specimen consists of a piece of white-pink soft tissue measuring 9.0 x 3.5 x 1.0cm. No mass lesion is identified. Network Strategist sections are submitted in one cassette. 01/18/2024 TC:5 CPT:67451
--- NOTE | 2024-01-18 10:05 | PCM.HP.BLA ---
History and Physical Date of Admission: 01/18/24 Intake Vital Signs 11/08/2408:40 Height 5 ft 6 in Intake Visit Reasons: S/P HERNIA 10-2 Chief Complaint: s/p hernia 10/2 Is patient in pain?: No Allergies No Known Allergies Allergy (Verified 11/23/23 08:32) Medications ?Medication ?Instructions ?Recorded ?Confirmed ?Type aspirin 81 mg tablet,delayed 81 mg PO DAILY heart health 03/02/22 11/23/23 History release rosuvastatin 5 mg tablet (Crestor) 5 mg PO DAILY cholesterol 03/02/22 11/23/23 History metoprolol tartrate 25 mg tablet 12.5 mg (1/2 x 25 mg) PO BID #90 01/14/23 11/23/23 Rx tabs fluticasone fur. 200 mcg-umeclid 1 inh inhalation DAILY #60 ea 01/27/23 11/23/23 Rx 62.5 mcg-vilant 25 mcg inhalat.powder (Trelegy Ellipta) amlodipine 5 mg tablet 5 mg PO DAILY #30 tabs 02/28/23 11/23/23 Rx calcium carbonate 500 mg PO DAILY 10/27/23 11/23/23 History cholecalciferol (vitamin D3) 25 25 mcg PO DAILY 10/27/23 11/23/23 History mcg (1,000 unit) capsule Have you fallen in the past year?: No Subjective Details: Patient is doing well after open right inguinal hernia repair Objective Details: Inguinal hernia incision healing well Coding Level of Care Code Global Post Op Diagnoses S/P inguinal hernia repair Z98.890; Z87.19 [facility] Medical History Wears dentures Wears glasses Bruising Easy bruising High cholesterol Smoker Shortness of breath on exertion History of echocardiogram Cardiology follow-up encounter Stage 3b chronic kidney disease (CKD) Thrombocytopenia Chronic kidney insufficiency Pleural effusion Secondary pulmonary arterial hypertension Atherosclerotic heart disease of three affiliated coronary artery without angina pectoris Intention tremor Carotid stenosis, bilateral Hyperlipidemia Nonrheumatic aortic (valve) stenosis Essential hypertension Tobacco dependence Bilateral inguinal hernia Left carotid bruit Abdominal aortic aneurysm (AAA) Anemia Subcutaneous mass of back PUD (peptic ulcer disease) Cough Arthritis Surgical History (Updated 11/23/23 @ 08:33 by Clarissa Cornejo) S/P inguinal hernia repair History of cardiac catheterization S/P AAA repair 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) History of left heart catheterization (11/27/18) History of aortic valve replacement (02/12/19) Family History Sister AsthmaMother Arthritis DiabetesBrother Cancer Unsure what kind- just a lump on his neck Social History Smoking Status: Current some day smoker tobacco type: cigarettes quit status: has quit before alcohol intake: never substance use type: does not use caffeine: Yes Type: coffee Number of servings: 3 what type of physical activity do you participate in: other frequency: 3-4 times per week seatbelt use: always Assessment and Plan (No Qualifiers) Assessment and Plan (1) S/P inguinal hernia repair: Status: Acute Plan: Patient doing well after right inguinal hernia repair. Plan for left side repair in 6 to 8 weeks. Marquise Barillas MD Pager: [facility] [address] [place] [address] Office: I have examined the patient and the H&P has been reviewed. There are no clinical changes since date of exam. The patient presents for his left sided inguinal hernia repair. The right side was repaired 2 months ago. I have reexplained the risks of the procedure and he understands and is wanted proceed. Marquise Barillas MD Pager: [facility] [address], [address] [place] [address] Office:
[2024-01-18] MEDS: 0.9% Normal Saline (1000mL) 1,000 ML 15 ML IV (10:08)
--- NOTE | 2024-01-18 10:15 | PCM.PRE.AN2 ---
ASA Classification* ASA Classification ASA Classification: 3 Assessment & Plan Anesthesia* Anesthesia Assessment Anesthesia Assessment: Discussed sedation and/or anesthesia options, risks, benefits, and alternatives with patient/parents/legal guardian/POA. Questions invited. The patient/parents/legal guardian/POA seems to understand and agrees to proceed with anesthesia plan. Reviewed the physical assessment, medical history, allergy history and patient home medications list prior to surgery/procedure/anesthetic and documented any changes. Performed airway and anesthesia risk assessments. Anesthesia Type Anesthesia Type: General History Source History Obtained from:: Patient and Chart Anesthesia Focused Assessment* Temperature: 97.3 F Pulse Rate: 56 Blood Pressure: 149/71 Respiratory Rate: 16 Pulse Ox: 100 Oxygen Delivery Method: Room Air Airway Assessment Mouth opens: >3 cm Mallampati Score: II Teeth Condition: Dentures (Upper dentures out.) and Missing (Patient has several missing molars on the lower. Rest of the teeth are tight.) Neck Range of motion (ROM): Limited ROM (Somewhat decreased extension) Focused Labs Anesthesia Preop lab: CBC WBC 6.8 K/mm3 (4.4-11.0) 10/27/23 12:41 RBC 4.41 M/mm3 (4.6-6.2) L 10/27/23 12:41 Hgb 13.0 g/dL (13.0-16.5) 10/27/23 12:41 Hct 40.7 % (40-54) 10/27/23 12:41 Plt Count 164 K/mm3 (150-450) 10/27/23 12:41 CHEMISTRY Potassium 4.4 mmol/L (3.5-5.1) 10/27/23 12:41 Sodium 136 mmol/L (136-145) 10/27/23 12:41 Magnesium 1.9 mg/dL (1.6-2.6) 03/03/22 05:36 Phosphorus 4.9 mg/dL (2.5-4.9) 03/03/22 05:36 BUN 26 mg/dL (7-18) H 10/27/23 12:41 Creatinine 1.47 mg/dL (0.70-1.30) H 10/27/23 12:41 Glucose 103 mg/dL (74-106) 10/27/23 12:41 TSH 1.68 uIU/mL (0.358-3.74) 08/16/22 08:25 COAG PT 12.8 SECONDS (11.7-14.9) 11/22/18 12:12 Pre-Assessment Diagnosis/Proposed Procedure Planned Operative Procedure(s): (L) Hernia, Open Inguinal w/ Mesh Anesthesia History Anesthesia History - surgical assistant: Anesthesia History - surgical assistant Hx Hospitalization No 01/09/24 10:15 Any Problems With Anesthesia No 01/09/24 10:15 Cholinesterase deficiency No 01/09/24 10:15 You/Your Family Experience No 01/09/24 10:15 fever (hyperthermia) with Relationship Recent Exposure to Contagious No 01/18/24 10:01 Disease Does patient have nerve No 01/09/24 10:15 stimulator Patient instructed to have device shut off --Does patient have Pacemaker No 01/18/24 10:01 or ICD? When Was Last Pacemaker Check QUESTION #4 FULL TEXT: You/Your Family Experience fever (hyperthermia) with Anesthesia Last Oral Intake Last Oral intake: Last Oral Intake NPO since 17:30 01/18/24 10:01 Meds taken in AM with sips of Yes 01/18/24 10:01 water? Meds patient instructed to metoprolol 01/18/24 10:01 take am of surgery Any additional information?: Yes Meds taken in AM with sips of water?: Yes PONV PONV - surgical assistant: PONV - surgical assistant Female No 01/09/24 10:15 HX of Motion Sickness No 01/09/24 10:15 HX of N/V After Surgery No 01/09/24 10:15 Non-Smoker No 01/09/24 10:15 Duration of Surgery greater Yes 01/09/24 10:15 than 60 minutes Number of Risk Factors 1 01/09/24 10:15 PONV Score Low Risk 01/09/24 10:15 Height & Weight Height & Weight: Anesthesia: Height & Weight Height 5 ft 6 in 01/18/24 10:01 Weight: 71 kg 01/18/24 10:01 Body Mass Index (BMI) 25.2 01/18/24 10:01 Respiratory Assessment Respiratory Assessment - surgical assistant: Respiratory Tract Infection Hx - surgical assistant Hx Respiratory Tract Infection No 01/09/24 10:15 STOP Sleep Apnea STOP Sleep Apnea - surgical assistant: STOP Sleep Apnea - surgical assistant Hx Hypertension Yes: CONTROLLED ON MED 01/09/24 10:15 Hx Sleep Apnea No 01/09/24 10:15 CPAP BIPAP Do you snore loudly (louder No 01/09/24 10:15 than talking or can be heard Do you often feel tired/ No 01/09/24 10:15 fatigued/ sleepy during daytime? Has anyone observed you stop No 01/09/24 10:15 breathing during sleep? STOP Results Negative 01/09/24 10:15 QUESTION #5 FULL TEXT : Do you snore loudly (louder than talking or can be heard through closed doors)? Tobacco Use History Tobacco Use History - surgical assistant: Tobacco Use History - surgical assistant Tobacco Use Smoking Status Current every day smoker 01/09/24 10:15 Hx Tobacco Use Yes 01/09/24 10:15 Years Smoking Packs Smoked per Day Smoking Cessation Date was within the last 15 years Hx Smoking Cessation Date 01/09/24 10:15 Hx Smoking Cessation Counseling Any additional information?: Yes Smoking Status: Current every day smoker (Patient did not smoke today.) Hematologic Medial History Hematologic Hx - surgical assistant: Hematologic Medical Hx - hematology supervisor Hx of Blood Transfusion No 01/09/24 10:15 Hx of Transfusion in last 3 No 01/09/24 10:15 Months Date of Last Transfusion (if within last 3 months) Ever experience any problems No 01/09/24 10:15 with transfusion(s)? Specify any problems Hx of Preganancy in last 3 N/A 01/09/24 10:15 Months Nurse Filling Out Transfusion VCHRISTIN 01/09/24 10:15 & Questions: Date: 01/09/24 01/09/24 10:15 Time: 10:17 01/09/24 10:15 Patient unable to answer at this time (ie. confused, unrespo /Reproduction History /Reproductive History - surgical assistant: /Reproductive Hx- surgical assistant Hx Now Gestational Age (in weeks): EDC: Hx Hx Para Hx Section SAB Active Medications Active Medications: Current Medications Generic Name Dose Route Start Last Admin Trade Name Freq PRN Reason Stop Dose Admin Cefazolin Sodium 2 gm/ N/A 20 mls @ 400 mls/hr 01/18/24 11:00 IV 01/18/24 11:02 PREOP ONE Sodium Chloride 1,000 mls @ 15 mls/hr 01/18/24 09:50 01/18/24 10:08 IV 01/23/24 23:09 15 mls/hr .Q48H YARY Administration Protocol [facility] Medical History Wears dentures Wears glasses Bruising Easy bruising High cholesterol Smoker Shortness of breath on exertion History of echocardiogram Cardiology follow-up encounter Stage 3b chronic kidney disease (CKD) Thrombocytopenia Chronic kidney insufficiency Pleural effusion Secondary pulmonary arterial hypertension Atherosclerotic heart disease of [place] coronary artery without angina pectoris Intention tremor Carotid stenosis, bilateral Hyperlipidemia Nonrheumatic aortic (valve) stenosis Essential hypertension Tobacco dependence Bilateral inguinal hernia Left carotid bruit Abdominal aortic aneurysm (AAA) Anemia Subcutaneous mass of back PUD (peptic ulcer disease) Cough Arthritis Home Medications ?Medication ?Instructions ?Recorded ?Last Taken ?Type aspirin 81 mg tablet,delayed 81 mg PO DAILY heart health 03/02/22 01/12/24 History release rosuvastatin 5 mg tablet (Crestor) 5 mg PO DAILY cholesterol 03/02/22 03/02/22 History metoprolol tartrate 25 mg tablet 12.5 mg (1/2 x 25 mg) PO BID #90 01/14/23 01/18/24 06:00 Rx tabs fluticasone fur. 200 mcg-umeclid 1 inh inhalation DAILY #60 ea 01/27/23 Unknown Rx 62.5 mcg-vilant 25 mcg inhalat.powder (Trelegy Ellipta) amlodipine 5 mg tablet 5 mg PO DAILY #30 tabs 02/28/23 Unknown Rx calcium carbonate 500 mg PO DAILY 10/27/23 Unknown History cholecalciferol (vitamin D3) 25 25 mcg PO DAILY 10/27/23 Unknown History mcg (1,000 unit) capsule Allergy/AdvReac Type Severity Reaction Status Date / Time No Known Allergies Allergy Verified 01/18/24 10:00 Family History Sister Asthma Mother Arthritis Diabetes Brother Cancer Unsure what kind- just a lump on his neck Surgical History Hx of inguinal hernia repair S/P inguinal hernia repair History of cardiac catheterization S/P AAA repair 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) History of left heart catheterization (11/27/18) History of aortic valve replacement (02/12/19) Social History Smoking Status: Current every day smoker tobacco type: cigarettes quit status: has quit before alcohol intake: never substance use type: does not use caffeine: Yes Type: coffee Number of servings: 3 what type of physical activity do you participate in: other frequency: 3-4 times per week seatbelt use: always Review of Systems (Anesthesia) ROS Narrative System reviewed and no additional complaints, except as documented.
[2024-01-18] MEDS: Cefazolin 2 GM in Syringe IV (10:32)
[2024-01-18] MEDS: Bupiv/Epi 0.25% 30 ML Vial (11:32)
--- NOTE | 2024-01-18 11:43 | PCM.POST.ANE ---
Anesthesia: Postop Eval I Current Vital Signs Temperature: 97.7 F Pulse Rate: 57 Blood Pressure: 152/75 Respiratory Rate: 15 Pulse Ox: 100 Oxygen Delivery Method: Room Air Assessment Airway patent: Yes Spontaneous unlabored respirations: Yes Mental status: Asleep nausea: No Vomiting: No Anesthesia Complication: No Fluid Hydration Crystalloid volume administer (ml): 500 Total IV fluid infused: 500 Progress Note Anesthesia document: Postop Eval 1 completed: Yes
--- NOTE | 2024-01-18 11:56 | PCM.OPRPT ---
Operative Report (Standard) Operative Information Date of Procedure: 01/18/24 Pre-Operative Diagnosis: Left inguinal hernia Post-Operative Diagnosis: Left inguinal hernia Surgery/Procedure Performed: Left inguinal hernia repair with mesh chemical production engineer: Yes Chief Vendor Quality: Thuy Vaz Tasks completed by assistant speech language pathologist: Opening, Closing and Retracting Type of Anesthesia: General/Regional RN Documented Start/Stop Times: Operation Date: 01/18/24 11:30 Case Time Into Pre-Op 01/18/24 09:49 Out of Pre-Op 01/18/24 10:25 Anesthesia Start 01/18/24 10:28 Into Room 01/18/24 10:28 Procedure Start 01/18/24 10:46 Procedure End 01/18/24 11:32 Anesthesia End 01/18/24 11:40 Out of Room 01/18/24 11:40 Into Recovery 01/18/24 11:44 Procedure Start Time: 10:46 Procedure Stop Time: 11:32 Select all DRAINS/GRAFTS/IMPLANTS that apply: Implanted device Implanted device details: Bard keyhole mesh Estimated Blood Loss: 5 Specimen collected: Yes Description of specimen(s) removed: Hernia sac Description of surgery: Patient was brought to the operating room and general anesthesia was induced. The left groin was prepped and draped in usual sterile fashion. An incision was marked and then injected with local anesthetic. Incision was made with a scalpel and deepened to the external aponeurosis which was obliterated due to the hernia and scar tissue. The hernia sac was isolated from the cord and the cord was lifted with a Shepherd drain. The base of the inguinal canal was inspected and there was a mild direct hernia as well as an indirect hernia. The indirect hernia sac was dissected free from the cord and then opened with scissors. All the contents were reduced and then it was suture-ligated using 0 silk suture. The hernia sac was sent for specimen. The stump was reduced. The keyhole mesh was then sutured to the pubic tubercle using a 2-0 PDS suture. It was then tacked to the shelving portion of the inguinal ligament using 2-0 PDS sutures. The medial side was then tacked to the conjoined tendon using interrupted 2-0 PDS sutures. The tails were wrapped around the proximal cord and sutured to themselves allowing for the pinky finger to insert next to the cord. Next the area was irrigated and suctioned dry. The tails were tucked under the external aponeurosis and the Duran's fascia was closed over the hernia. The incision was closed with interrupted 3-0 Vicryl sutures and a running 4-0 Monocryl suture. Dermabond glue was applied. Scrotum was checked at the end of the case and contain both testicles. Surgical Findings: Indirect and direct hernia of the left groin Complications Complications: No Admit VTE Documentation VTE Mechan Device Prophylaxis: SCD's
--- NOTE | 2024-01-18 11:59 | EX.PCM.DISCH ---
Discharge Instructions Procedure Hernia Diet Discharge Diet: Light diet - advance as tolerated Activity Discharge Activity: May Not Drive (for 2-3 days or while taking narcotic pain meds.) and May Shower (with the bandage in place 1-2 days after surgery.) Lifting Restrictions: 20 pounds for 6 weeks. Additional Activity Instructions:: Climbing stairs is fine, walking is encouraged. Sitting in bed may be uncomfortable. Sitting up using your lateral muscles (sitting up sideways) is usually more comfortable. Do not drive, work heavy equipment of sign legal documents for 24 hours. If your hernia repair was an inguinal repair, you may have scrotal swelling, an ice pack and/or athletic support can provide more comfort. Pain medications may cause nausea, you should typically eat light foods as you take your pain medications. Pain medications may also cause constipation. If you have difficulty with this, discuss with your doctor. Alternate ibuprofen and Tylenol for pain control, oxycodone for breakthrough pain Resume aspirin tomorrow Dressing / Incision Call your doctor if your incision/area has: Continuous Slow Oozing, Sudden Increased Bleeding, Increased Pain/ Swelling, Increased Redness and Foul Smelling Discharge Call your doctor if you observe: Fever of 101 or Higher Suture Line Care: Avoid Pulling/Pushing and Avoid Pinching/Bending Cleanse incision/area with: Soap & Water Follow Up Care Please Follow Up With: Marquise Barillas MD When: Please call to schedule 2 week follow up appointment. [phone] Test Results: Test results from this visit will be discussed in further detail at your follow-up appointment, if applicable. Discharge Plan Admission Attending Provider: Marquise Barillas Primary Care Provider: Andrés Carrasco Instructions Print Language: Togolese Discharge Orders/Prescriptions Prescriptions: New oxycodone 5 mg Tablet 5 - 10 mg PO Q4H PRN PRN (Reason: Pain Score 4-10) 5 Days Qty: 20 0RF No Action amlodipine 5 mg tablet 5 mg PO DAILY Qty: 30 11RF Trelegy Ellipta 200-62.5-25 mcg blister with device 1 inh inhalation DAILY Qty: 60 6RF aspirin 81 mg tablet,delayed release (DR/EC) 81 mg PO DAILY Patient Comments: STOP 5 DAYS PRIOR TO PROCEDURE rosuvastatin [Crestor] 5 mg tablet 5 mg PO DAILY calcium carbonate 500 mg calcium (1,250 mg) tablet 500 mg PO DAILY cholecalciferol (vitamin D3) 25 mcg (1,000 unit) capsule 25 mcg PO DAILY metoprolol tartrate 25 mg tablet 12.5 mg PO BID Qty: 90 3RF Referrals / Follow Up: Andrés Carrasco MD [Primary Care Provider] - Disposition Disposition (needs filled in before D/C Order can be placed): Home, Self Care
--- NOTE | 2024-01-18 13:38 | PCM.POSTANE2 ---
Anesthesia Postop Eval I Sum Postop Eval Completion status Anesthesia document: Postop Eval 1 completed: Yes Anesthesia Postop Eval I Summary Anesthesia Postop Eval I Summary: Anesthesia Postop Eval I: Assessment Summary Airway patent Yes 01/18/24 11:58 Spontaneous unlabored Yes 01/18/24 11:58 respirations Mental status Asleep 01/18/24 11:58 nausea No 01/18/24 11:58 Vomiting No 01/18/24 11:58 Anesthesia Postop Eval I: Fluid Summary Crystalloid volume administer 500 01/18/24 11:58 (ml) Colloids volume administered ( ml) Blood Product volume administered (ml) Total IV fluid infused 500 01/18/24 11:58 Anesthesia Postop Eval I: Summary Notes Anesthesia Complication No 01/18/24 11:58 Anesthesia Complication Comment: Post-operative progress note Anesthesia: Postop Eval II Evaluation Mental status: Awake Pain Level: 1 nausea: No Vomiting: No
== END 2024-01-18 14:17 | disposition home or self-care (01) ==
LOC: SDC 09:36 → AC 09:39
PROVIDERS: PCP Family Medicine; Referring Provider Surgery; Visit Provider Surgery
PROC: (CPT 49505; principal; 2024-01-18 11:15)
DX: K40.90 Unilateral inguinal hernia, without obstruction or gangrene, not specified as recurrent (principal); J44.9 Chronic obstructive pulmonary disease, unspecified; N18.32 Chronic kidney disease, stage 3b; I25.10 Atherosclerotic heart disease of native coronary artery without angina pectoris; I12.9 Hypertensive chronic kidney disease with stage 1 through stage 4 chronic kidney disease, or unspecified chronic kidney disease; E78.00 Pure hypercholesterolemia, unspecified; F17.210 Nicotine dependence, cigarettes, uncomplicated; Z79.899 Other long term (current) drug therapy; Z79.82 Long term (current) use of aspirin; Z95.1 Presence of aortocoronary bypass graft
CPT/HCPCS: 49505; 00830; 88302; C1781; J2405

== ENCOUNTER → 2024-02-21 | Outpatient (CLI) | payer MEDICARE, SELFPAY ==
--- NOTE | 2024-02-21 07:48 | CT_ITS ---
STUDY: LOW DOSE CT LUNG CANCER SCREENING REASON FOR EXAM: Male, 73 years old. Patient smoked 1 pack per day for 50 years. RADIATION DOSAGE (If Supplied By Facility): CTDIvol = ( 3.02 ) mGy, DLP = ( 115.13 ) mGycm TECHNIQUE: No contrast was administered. Low dose technique was utilized (average mAS-38 and kVp 120). 1.25 mm axial source images with a slice interval of 1.25-mm were reconstructed in lung windows. 2.5 mm axial source images with a slice interval of 2.5-mm were reconstructed in lung windows. 5.0 mm axial source images with a slice interval of 5.0-mm were reconstructed in soft tissue windows. COMPARISON: Comparison is made with prior study dated February 10, 2023. NODULES: Stable 4 mm noncalcified nodule in the posterior aspect of the left upper lobe as seen on image #79. Emphysema: Hyperinflation. Mild emphysematous change. Endobronchial lesion: None Aorta: Atherosclerotic plaque formation of the aortic arch. CORONARY ARTERIES: Coronary artery calcification is seen. Heart: Unremarkable Pulmonary artery: Unremarkable Mediastinal nodes: Benign-appearing mediastinal lymph nodes. Other chest and abdominal findings: CT/Low Dose CT Lung Screening IMPRESSION: Lung-RADS category 2 - Continue annual screening with LDCT in 12 months. IMPORTANT NOTES FOR USE: ACR Lung-RADS Version 1.1 Assessment Categories Release Date: 2018 Category: Coded 0-4 bases on nodule(s) with highest degree of suspicion. Negative screen is defined as categories 1 and 2; a positive screen is defined as categories 3 and 4. Category 3 and 4A nodules that are unchanged on interval CT should be coded as category 2, and individuals returned to screening in 12 months. Category 4X: Category 3 or 4 nodules with additional imaging findings that increase the suspicion of lung cancer, such as spiculation, GGN that doubles in size in 1 year, enlarged lymph notes, etc. Category Modifiers: S (significant finding unrelated to lung cancer) Electronically Signed: Lebron Briseno MD at 14:51 EST ,
== END | disposition home or self-care (01) ==
LOC: CT 07:37
PROVIDERS: PCP Family Medicine; Referring Provider Nurse Practitioner Acute Care; Visit Provider Nurse Practitioner Acute Care
DX: Z12.2 Encounter for screening for malignant neoplasm of respiratory organs (principal); F17.210 Nicotine dependence, cigarettes, uncomplicated
CPT/HCPCS: 71271

== ENCOUNTER → 2024-05-10 | Outpatient (CLI) | payer MEDICARE, SELFPAY ==
[2024-05-10 18:02] LABS: Hematocrit 42.5 % (40-54); Hemoglobin 13.6 g/dL (13.0-16.5); Mean Corpuscular Volume 93.8 fL (80-94); Mean Platelet Vol. 9.2 fl (6.2-12.0); Platelet Count 168 K/mm3 (150-450); RBC Distribution Width CV 13.2 % (11.6-14.6); RBC Distribution Width SD 45.1 fl (35.1-43.9); Red Blood Count 4.53 M/mm3 (4.6-6.2); White Blood Count 6.9 K/mm3 (4.4-11.0)
[2024-05-10 18:22] LABS: PTHIN 74 pg/mL (11-61)
[2024-05-10 18:39] LABS: ALB/GLOB Ratio 1.4 RATIO (0.9-2.4); AST(SGOT) 16 U/L (<=37); Alanine Aminotransfer ALT/SGPT 6 U/L (<=46); Albumin, Serum 3.9 g/dL (3.4-4.8); Alkaline Phosphatase 73 U/L (40-129); Anion Gap 12 (5-15); BUN 28 mg/dL (4-19); BUN/Creat Ratio 16.8 RATIO (10-20); Carbon Dioxide 22.7 mmol/L (21.0-32.0); Chloride 104 mmol/L (98-108); Cholesterol 144 mg/dL (<=200); Creatinine, Serum 1.64 mg/dL (0.70-1.20); EST Glomerular Filtration Rate 44 (>60); Globulin 2.8 g/dL (2.2-4.2); Glucose 163 mg/dL (70-99); High Density Lipoprotein 50 mg/dL; Low Density Lipoprotein Calc. 63 mg/dL; PSA,Total - Annual Screen 0.49 ng/mL (0.02-4.00); Potassium 4.8 mmol/L (3.3-5.1); Protein, Total 6.7 g/dL (5.9-8.4); Sodium Level 138 mmol/L (133-145); Total Bilirubin 0.18 mg/dL (0.00-1.30); Triglycerides 155 mg/dL; Very Low Density Lipoprotein 31 mg/dL (5-40); Vitamin B12 355 pg/mL (180-914); Vitamin D,25 Hydroxy 23.1 ng/mL (30-100); cholesterol:hdl ratio screen 2.86
[2024-05-10 19:40] LABS: Iron 57 ug/dL (65-175)
== END | disposition home or self-care (01) ==
LOC: MFPLAB 15:15
PROVIDERS: PCP Family Medicine; Referring Provider Family Medicine; Visit Provider Family Medicine
DX: E11.22 Type 2 diabetes mellitus with diabetic chronic kidney disease (principal); E11.65 Type 2 diabetes mellitus with hyperglycemia; E55.9 Vitamin D deficiency, unspecified; N18.9 Chronic kidney disease, unspecified; Z12.5 Encounter for screening for malignant neoplasm of prostate
CPT/HCPCS: 36415; 80053; 80061; 82306; 82607; 83540; 83970; 84153; 84443; 85027; G0103

== ENCOUNTER 2024-05-16 22:08 | Emergency (ER) | payer MEDICARE, SELFPAY ==
[2024-05-16 22:09] VITALS: BP 211/109; PULSE 108; RESP 19; TEMP 36.6; O2SAT 92; BMI 25.9
--- NOTE | 2024-05-16 22:30 | CT_ITS ---
PROCEDURE: ABDOMEN/PELVIS WITHOUT CONT 05/16/2024 REASON FOR EXAM: FLANK PAIN TECHNIQUE: Abdomen and pelvis CT without intravenous contrast. Noncontrast technique limits evaluation of the abdominal and pelvic viscera. Coronal and Sagittal reconstruction series were provided. One or more dose reduction techniques were used (e.g., Automated exposure control, adjustment of the mA and/or kV according to patient size, use of iterative reconstruction technique). PATIENT PREPARATION: Per protocol ORAL CONTRAST TYPE: None. AMOUNT: mL COMPARISON: None FINDINGS: Lung bases: Calcified granulomas. Liver: Steatosis. Multiple calcified granulomas. Gallbladder: No ductal dilation. Gallbladder is unremarkable. Spleen: No splenomegaly. Multiple calcified granulomas. Pancreas: Normal size. No surrounding inflammation. Adrenals: Unremarkable Kidneys: No urolithiasis. No hydronephrosis. Bladder: Circumferential urinary bladder wall thickening, with surrounding soft tissue stranding, concerning for acute cystitis. Reproductive Organs: No prostatomegaly. Bowel: Stomach is unremarkable. No bowel dilation or wall thickening. Moderate colonic stool. Normal appendix. Few scattered colonic diverticuli, without evidence of diverticulitis. Appendix: Normal appendix. Lymph nodes: No suspicious lymph node enlargement. Vasculature: 4.1 cm infrarenal abdominal aortic aneurysm. Additional ectasia of the bilateral common iliac arteries. Severe diffuse atherosclerotic calcification of the abdominal aorta and iliac arteries. IVC is unremarkable. Peritoneum / Retroperitoneum: No pneumoperitoneum. No ascites. Bones: Degenerative changes of the spine. CT/Abdomen/Pelvis without Cont IMPRESSION: 1. Diffuse circumferential urinary bladder wall thickening with surrounding sof t tissue stranding, concerning for acute cystitis. 2. 4.1 cm infrarenal aortic aneurysm. Reading Location: [facility]
[2024-05-16 22:40] LABS: Mucous, Urine 0 SEEN /hpf (<or=2+)
[2024-05-16 22:41] LABS: Color, Urine Red (Yellow); Glucose, Dipstick Normal (Normal); Ketone-Dipstick Negative (Negative); Leukocyte Esterase-Dipstick 25 /ul (Negative); Nitrite-Dipstick Positive (Negative); Occult Blood-Urine 250 /ul (Negative); Protein-Dipstick 100 mg/dl (Negative); Urine Bilirubin Dipstick Negative (Negative); Urine Clarity Cloudy (Clear); Urine Urobilinogen Normal (Normal)
[2024-05-16 22:41] LABS: Absolute Lymphocyte Count 1.76 X10^3/uL (0.83-4.51); Absolute Neutrophil Count 4.7 X10^3/uL (2.0-7.7); Basophil# 0.04 X10^3/uL; Basophil% 0.6 % (0-1); Eosinophil# 0.16 X10^3/uL; Eosinophils% 2.2 % (0-5); Hematocrit 42.7 % (40-54); Hemoglobin 14.1 g/dL (13.0-16.5); Lymphocyte # 1.76 X10^3/ul (0.83-4.51); Lymphocyte % 24.2 % (19-41); Mean Corpuscular Hgb 30.4 pg (27.0-32.0); Mean Platelet Vol. 8.5 fl (6.2-12.0); Monocyte# 0.59 X10^3/uL; Monocyte% 8.1 % (0-10); NRBC Flagged by Analyzer 0 % (0-5); Neutrophil # 4.69 X10^3/uL (2.7-7.7); Neutrophil % 64.6 % (47-70); Platelet Count 151 K/mm3 (150-450); RBC Distribution Width CV 12.8 % (11.6-14.6); RBC Distribution Width SD 43.4 fl (35.1-43.9); Red Blood Count 4.64 M/mm3 (4.6-6.2); White Blood Count 7.3 K/mm3 (4.4-11.0)
[2024-05-16] MEDS: Ketorolac 15 MG/ML Vial IV (22:46)
[2024-05-16] MEDS: 0.9% Normal Saline (1000mL) 1,000 ML 999 ML IV (22:46)
[2024-05-16 23:00] VITALS: BP 158/92; PULSE 69; RESP 18; TEMP 36.6; O2SAT 95
[2024-05-16 23:01] LABS: Anion Gap 14 (5-15); BUN 31 mg/dL (4-19); BUN/Creat Ratio 20.9 RATIO (10-20); Calcium,Total 9.1 mg/dL (7.6-11.0); Carbon Dioxide 20.7 mmol/L (21.0-32.0); Chloride 102 mmol/L (98-108); Creatinine, Serum 1.47 mg/dL (0.70-1.20); EST Glomerular Filtration Rate 50 (>60); Estimated Creatinine Clearance 39.78 ml/min (50-250); Glucose 145 mg/dL (70-99); Potassium 4.5 mmol/L (3.3-5.1); Sodium Level 136 mmol/L (133-145)
[2024-05-16 23:31] LABS: White Blood Cells 10-25 SEEN /hpf (0-5)
[2024-05-16 23:32] LABS: Bacteria 1+ /hpf (None Seen); Red Blood Cells-Urine > 100 SEEN /hpf (0-5); Red Cell Cast 0-5 SEEN /lpf (None Seen); Squamous Epithelial Cells - UA 0-5 SEEN /hpf (0-5)
[2024-05-16] MEDS: Lidocaine Jelly 2% 20 ML Syringe (URO-JET) 1 APPLIC TOPICAL (23:41)
[2024-05-16] MEDS: Ceftriaxone 1 GM/50 ML BAG IV (23:51)
--- NOTE | 2024-05-17 00:07 | EX.ED.DYSGE1 ---
HPI History of Present Illness Chief Complaint: Complaint Informant: patient Narrative Narrative: Patient is a 74-year-old male with past medical history of COPD hypertension hyperlipidemia tobacco dependence and previous aortic aneurysm status post grafting. He states over the past few days he has been having sensation that he has to urinate frequently but when he does so only a small amount comes out and it is bloody in nature. He states he went to his family doctor who informed him he may have a kidney stone. Patient states that today he started noticing some right sided abdominal/back pain that concern for the stone. He also reports he felt his pain was worse than it has been over the last few days and therefore he comes in for evaluation. 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 Intention tremor Carotid stenosis, bilateral Hyperlipidemia Nonrheumatic aortic (valve) stenosis Essential hypertension Tobacco dependence Bilateral inguinal hernia Left carotid bruit Abdominal aortic aneurysm (AAA) Anemia Subcutaneous mass of back PUD (peptic ulcer disease) Cough Arthritis Home Medications ?Medication ?Instructions ?Recorded ?Last Taken ?Type aspirin 81 mg tablet,delayed 81 mg PO DAILY heart health 03/02/22 01/12/24 History release rosuvastatin 5 mg tablet (Crestor) 5 mg PO DAILY cholesterol 03/02/22 03/02/22 History amlodipine 5 mg tablet 5 mg PO DAILY #30 tabs 02/28/23 Unknown Rx calcium carbonate 500 mg PO DAILY 10/27/23 Unknown History cholecalciferol (vitamin D3) 25 25 mcg PO DAILY 10/27/23 Unknown History mcg (1,000 unit) capsule metoprolol tartrate 25 mg tablet 12.5 mg (1/2 x 25 mg) PO BID #90 03/22/24 Unknown Rx tabs fluticasone fur. 200 mcg-umeclid 1 inh inhalation DAILY #60 ea 03/23/24 Unknown Rx 62.5 mcg-vilant 25 mcg inhalat.powder (Trelegy Ellipta) cephalexin 500 mg capsule 500 mg PO TID 7 days #21 caps 05/17/24 Unknown Rx phenazopyridine 200 mg tablet 200 mg PO TID 2 days #6 tabs 05/17/24 Unknown Rx (Pyridium) tamsulosin 0.4 mg capsule (Flomax) 0.4 mg PO DAILY 14 days #14 caps 05/17/24 Unknown Rx Allergy/AdvReac Type Severity Reaction Status Date / Time No Known Allergies Allergy Verified 05/16/24 22:09 Family History (Reviewed 03/23/24 @ 12:51 by Carmina Tee CONTINUOUS IMPROVEMENT LEAD, CONTINUOUS IMPROVEMENT LEAD-C) Sister Asthma Mother Arthritis Diabetes Brother Cancer Unsure what kind- just a lump on his neck Surgical History (Reviewed 03/23/24 @ 12:51 by Carmina Tee CONTINUOUS IMPROVEMENT LEAD, CONTINUOUS IMPROVEMENT LEAD-C) Hx of inguinal hernia repair S/P inguinal hernia repair History of cardiac catheterization S/P AAA repair 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) History of left heart catheterization (11/27/18) History of aortic valve replacement (02/12/19) Social History (Reviewed 03/23/24 @ 12:51 by Carmina Tee CONTINUOUS IMPROVEMENT LEAD, CONTINUOUS IMPROVEMENT LEAD-C) Smoking Status: Current every day smoker tobacco type: cigarettes quit status: has quit before alcohol intake: never substance use type: does not use caffeine: Yes Type: coffee Number of servings: 3 what type of physical activity do you participate in: other frequency: 3-4 times per week seatbelt use: always ROS ROS ED Constitutional Constitutional ED: Denies chills or fever(s) ENT ENT ED: Denies sore throat Cardiovascular Cardiovascular: Denies chest pain Respiratory/Chest Respiratory/Chest: Denies cough or dyspnea Gastrointestinal Gastrointestinal: Reports abdominal pain; Denies diarrhea, melena, nausea or vomiting Genitourinary Genitourinary ED: Reports hematuria and urinary frequency; Denies dysuria Musculoskeletal Musculoskeletal: Reports back pain Integumentary Denies rash Neurologic Neurologic: Denies headache(s) Hematologic/Lymphatic Hematologic/Lymphatic: Denies easy bleeding or easy bruising EXAM Physical Exam Const Vital Signs: 05/16/24 22:09 05/16/24 22:09 05/16/24 23:00 Temperature 98 F 98 F 98 F Temperature Source Oral Oral Oral Pulse Rate 108 H 108 H 69 Respiratory Rate 19 H 19 H 18 Blood Pressure 211/109 H 211/109 H 158/92 H Blood Pressure Mean 143 143 111 Pulse Ox 92 92 95 Oxygen Delivery Method Room Air Room Air Room Air 05/17/24 00:09 05/17/24 00:50 Temperature 97.9 F Temperature Source Pulse Rate 66 66 Respiratory Rate 17 20 H Blood Pressure 170/71 H 164/78 H Blood Pressure Mean 104 106 Pulse Ox 94 95 Oxygen Delivery Method Room Air Positive well nourished and well developed General Appearance ED: well developed; Negative for pallor HEENT HEENT Narrative: Normocephalic atraumatic Eyes PERRL and EOMs intact bilaterally General Eye ED: Negative for scleral icterus Neck supple Resp normal respiratory effort Resp Narrative: Breath sounds are diminished throughout with diffuse rhonchi consistent with history of COPD but no signs of respiratory distress Cardio regular rate and regular rhythm Rate: other Other Details: Radial and carotid pulses are equal and symmetric GI non-distended and no masses GI Narrative: Abdomen is soft and nondistended with normal active bowel sounds. There is mild pain with palpation in the suprapubic region without voluntary guarding or rigidity. No pulsatile mass or fluid wave. No organomegaly noted. Auscultation: normoactive bowel sounds Palpation: soft Narrative: Normal uncircumcised male. No blood or discharge from the urethral meatus. No testicular swelling or masses. No secondary soft tissue skin changes to suggest Marcia's gangrene. Back/Spine no CVA tenderness Extremity normal to inspection Neuro oriented x3, CN's II-XII intact bilaterally and no sensory deficits noted Sensorium / Orientation: alert Motor Exam: strength 5/5 throughout Psych mental status grossly normal Skin no rashes or lesions noted and no wounds General Skin Exam: Negative for jaundice or pallor MDM MDM MDM Narrative Medical decision making narrative: Patient arrived to the ER hypertensive but has a past medical history of this. With report of urinary frequency there is concern for UTI versus pyelonephritis however the hematuria there is also concern for kidney stone. Patient also could have acute kidney injury or acute blood loss anemia or thrombocytopenia and secondary to his basic labs were obtained with urine sample and noncontrast CT. labs revealed creatinine of 1.5 but chart review demonstrates is chronic in nature therefore he has no signs of ROSALIE. There is no sign of anemia or thrombocytopenia. Patient's urine sample did show a large amount of red blood cells consistent with his history but it is also demonstrating signs of infection. Therefore the urine will be sent for culture and the patient was given Rocephin in the ER and started on Keflex. At this time his blood pressure and heart rate have improved he also reports improvement of his pain. As his workup is not showing signs of urosepsis or acute urinary retention or acute kidney injury there is no need for further workup or admission. He will be placed on antibiotics secondary to the UTI. My independent interpretation of the CT scan suggested a stone within the patient's urethra which would also fit with his report of irritation and burning in the penis. At this time he is still able to urinate he does not have ROSALIE he is not uroseptic and therefore there is no need for further intervention and he is otherwise safe for discharge with outpatient follow-up. History & Record Review Discussion w/independent historian: Patient Lab Data Attestation: I reviewed the patient's lab results. Labs: Laboratory Results - last 24 hr 05/16/24 05/16/24 22:18 22:35 WBC 7.3 RBC 4.64 Hgb 14.1 Hct 42.7 MCV 92.0 MCH 30.4 MCHC 33.0 RDW Std Deviation 43.4 RDW Coeff of Manjit 12.8 Plt Count 151 MPV 8.5 Immature Gran % (Auto) 0.300 Neut % (Auto) 64.6 Lymph % (Auto) 24.2 [place] % (Auto) 8.1 Eos % (Auto) 2.2 Baso % (Auto) 0.6 Absolute Neuts (auto) 4.7 Absolute Lymphs (auto) 1.76 Nucleated RBC % 0 Sodium 136 Potassium 4.5 Chloride 102 Carbon Dioxide 20.7 L Anion Gap 14 BUN 31 H Creatinine 1.47 H Estim Creat Clear Calc 39.78 L Est GFR (MDRD) Non-Af 50 L BUN/Creatinine Ratio 20.9 H Glucose 145 H Calcium 9.1 Urine Color Red Urine Clarity Cloudy Urine pH 6.0 Ur Specific [place] 1.020 Urine Protein 100 H Urine Glucose (UA) Normal Urine Ketones Negative Urine Occult Blood 250 H Urine Nitrite Positive H Urine Bilirubin Negative Urine Urobilinogen Normal Ur Leukocyte Esterase 25 H Urine RBC > 100 SEEN Urine WBC 10-25 SEEN Ur Squamous Epith Cells 0-5 SEEN Urine Bacteria 1+ RBC Casts 0-5 SEEN Urine Mucus 0 SEEN Radiography Diagnostic Testing: Clinical Impression(s) from Imaging Studies Abdomen/Pelvis CT 04/09/25 22:30 IMPRESSION: 1. Diffuse circumferential urinary bladder wall thickening with surrounding soft tissue stranding, concerning for acute cystitis. 2. 4.1 cm infrarenal aortic aneurysm. Reading [facility] Discharge Plan Triage Chief Complaint: Complaint ED Provider: Jeffery Turpin Dx/Rx/DC Orders Clinical Impression: Acute hemorrhagic cystitis, Essential hypertension, Hyperlipidemia, COPD (chronic obstructive pulmonary disease) Instructions: ED Hematuria, ED Urinary Tract Infections in Men Prescriptions: New tamsulosin [Flomax] 0.4 mg capsule 0.4 mg PO DAILY 14 Days Qty: 14 0RF cephalexin 500 mg capsule 500 mg PO TID 7 Days Qty: 21 0RF phenazopyridine [Pyridium] 200 mg tablet 200 mg PO TID 2 Days Qty: 6 0RF No Action amlodipine 5 mg tablet 5 mg PO DAILY Qty: 30 11RF Trelegy Ellipta 200-62.5-25 mcg blister with device 1 inh inhalation DAILY Qty: 60 11RF aspirin 81 mg tablet,delayed release (DR/EC) 81 mg PO DAILY Patient Comments: STOP 5 DAYS PRIOR TO PROCEDURE rosuvastatin [Crestor] 5 mg tablet 5 mg PO DAILY calcium carbonate 500 mg calcium (1,250 mg) tablet 500 mg PO DAILY cholecalciferol (vitamin D3) 25 mcg (1,000 unit) capsule 25 mcg PO DAILY metoprolol tartrate 25 mg tablet 12.5 mg PO BID Qty: 90 3RF Primary Care Provider: Andrés Carrasco Referrals: Andrés Carrasco MD [Primary Care Provider] - Pradip Winston MD [Med Staff - Active Staff] - Activity Restrictions/Additional Instructions: Your urine sample showed signs of infection and therefore take the antibiotic as directed to help resolve this. Your CT scan appeared to show a stone within your urethra. This can also be a cause of pain and blood. Secondary to his follow-up with urology for repeat evaluation. If you develop a fever or have intractable pain please return to the ER for repeat evaluation. Continue with Tylenol and or ibuprofen for pain control Print Language: Czech Disposition Disposition: Home, Self Care Discharge Date/Time: 05/17/24 00:51
[2024-05-17 00:09] VITALS: BP 170/71; PULSE 66; RESP 17; O2SAT 94
[2024-05-17 00:50] VITALS: BP 164/78; PULSE 66; RESP 20; TEMP 36.6; O2SAT 95
== END 2024-05-17 00:51 | disposition home or self-care (01) ==
PROVIDERS: Emergency Provider Emergency Medicine; PCP Family Medicine; Visit Provider Emergency Medicine
DX: N30.91 Cystitis, unspecified with hematuria (principal); J44.9 Chronic obstructive pulmonary disease, unspecified; N18.32 Chronic kidney disease, stage 3b; I12.9 Hypertensive chronic kidney disease with stage 1 through stage 4 chronic kidney disease, or unspecified chronic kidney disease; I25.10 Atherosclerotic heart disease of native coronary artery without angina pectoris; Z95.1 Presence of aortocoronary bypass graft
CPT/HCPCS: 51702; 74176; 80048; 81001; 85025; 87086; 87088; 96365; 96375; 99283; A4216

== ENCOUNTER → 2024-05-28 | Outpatient (CLI) | payer MEDICARE, SELFPAY ==
--- NOTE | 2024-05-28 | CYSPIN_PTH ---
PATIENT: ABELARDO ROBERTS LOC: [facility] U#:[id number] AGE/SX: 74/M ROOM: RE05/28/[address]: Dr. Pradip Winston MD : 1950 BED: DIS: 05/28/2024 SPEC #: [id number] RECD: 05/28/24 16:01 STATUS: EZEQUIEL REVijaya #: [id number] MORENITA: 05/28/24 00:[address]: Pradip Winston DEPT: CYTOLOGY RECD BY: Bob Tapia ENTERED: 05/29/24 07:20 SP TYPE: CYSPIN FL OTHR DR: Dr. 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 Urine, voided: * No malignant cells are identified CYTOLOGY STUDY Slides are reviewed. CYTOLOGY GROSS A. Received is 80 ml of red-cloudy fluid labeled with the patient's name and and designated per the requisition as urine. Submitted for cytology preparation. Mr 05/29/2024 CPT: 90547
[2024-05-28 16:02] LABS: Cytology, Body Fluid / CSF SEE PATHOLOGY REPORT
== END | disposition home or self-care (01) ==
LOC: LABSPEC 15:58
PROVIDERS: PCP Family Medicine; Referring Provider Urology; Visit Provider Urology
DX: D41.4 Neoplasm of uncertain behavior of bladder (principal)
CPT/HCPCS: 88108; 88313

== ENCOUNTER → 2024-06-21 | Outpatient (CLI) | payer MEDICARE, SELFPAY | END | disposition home or self-care (01) | LOC: LAB 06:56 | PROVIDERS: PCP Family Medicine; Referring Provider Urology; Visit Provider Urology | DX: R35.0 Frequency of micturition (principal) | CPT/HCPCS: 87086 ==

== ENCOUNTER → 2024-06-21 | Outpatient (CLI) | payer MEDICARE, SELFPAY ==
--- NOTE | 2024-06-21 06:26 | CT_ITS ---
PROCEDURE: ABDOMEN/PELVIS WITH CONTRAST 06/21/2024 REASON FOR EXAM: GROSS HEMATURIA TECHNIQUE: Abdomen and pelvis CT with intravenous contrast. Coronal and Sagittal reconstruction series were provided. PATIENT PREPARATION: Per protocol ORAL CONTRAST TYPE: None. CONTRAST: Isovue-300 VOLUME: 100 mL One or more dose reduction techniques were used (e.g., Automated exposure control, adjustment of the mA and/or kV according to patient size, use of iterative reconstruction technique. RADIATION DOSE SUMMARY: CTDlvol: 9.3 mGy DLP: 454.02 mGycm COMPARISON: Prior study dated May 16, 2024. FINDINGS: Lung bases: Unremarkable. Liver: Calcified granulomas in the right lobe. Gallbladder: Unremarkable Spleen: Multiple calcified splenic granulomas. Pancreas: Normal size without evidence of mass surrounding inflammation or ductal dilation. Adrenals: Unremarkable Kidneys: Mild degree of process left hydroureter down to the ureterovesical junction. Bladder: Bladder wall thickening along the base of the bladder worse on the left side. A mass lesion should be ruled out. This is the reason for the left hydronephrosis. There is evidence of prosthetic enlargement and calcification. Increased markings are seen in the surrounding Kirstie bladder fat. Bowel: Colonic diverticulosis without diverticulitis. Appendix: The appendix is not identified. There is no inflammatory process identified in the right lower quadrant to suggest appendicitis. Lymph nodes: No retroperitoneal lymph nodes are seen. Vasculature: Stable appearance of the fusiform infrarenal abdominal aortic aneurysm with mural thrombus. The aneurysm extends into the proximal portions of both common iliac arteries. There has been no change. Peritoneum / Retroperitoneum: Bilateral inguinal hernias containing fat worse on the left side. Bones: Stable loss of height of the superior endplate of the L2 and L5 vertebrae. Disc space narrowing at the L5-S1. CT/Abdomen/Pelvis WITH Contrast IMPRESSION: Left hydronephrosis and hydroureter due to a mass at the base of the bladder as described. Bladder wall thickening with increased markings in the surrounding peritoneal fat. Sigmoid diverticulosis. Stable fusiform aneurysmal dilatation of the infrarenal abdominal aorta with ex tension to the right and left common iliac arteries. Bilateral inguinal hernias containing fat worse on the left side. Calcified hepatic and splenic granulomas. Reading Location: [id number]
[2024-06-21 06:58] LABS: CREATININE FINGERSTICK 1.8 mg/dL (0.70-1.30)
== END | disposition home or self-care (01) ==
LOC: CT 06:26
PROVIDERS: PCP Family Medicine; Referring Provider Urology; Visit Provider Urology
DX: R31.0 Gross hematuria (principal)
CPT/HCPCS: 74177; Q9967

== ENCOUNTER 2024-06-27 15:22 | Observation (INO) | payer MEDICARE, SELFPAY ==
--- NOTE | 2024-06-13 12:08 | PAT.ANE_ITS ---
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 When Was Last Pacemaker Check QUESTION #4 FULL TEXT: You/Your Family Experience fever (hyperthermia) with Anesthesia Last Oral Intake Last Oral intake: Last Oral Intake NPO since Meds taken in AM with sips of water? Meds patient instructed to take am of surgery PONV PONV - direct mail marketer: PONV - direct mail marketer Female No 06/13/24 10:26 HX of Motion Sickness No 06/13/24 10:26 HX of N/V After Surgery No 06/13/24 10:26 Non-Smoker No 06/13/24 10:26 Duration of Surgery greater Yes 06/13/24 10:26 than 60 minutes Number of Risk Factors 1 06/13/24 10:26 PONV Score Low Risk 06/13/24 10:26 Height & Weight Height & Weight: Anesthesia: Height & Weight Height 5 ft 6 in 05/16/24 22:09 Respiratory Assessment Respiratory Assessment - direct mail marketer: Respiratory Tract Infection Hx - direct mail marketer Hx Respiratory Tract Infection No 06/13/24 10:26 STOP Sleep Apnea STOP Sleep Apnea - direct mail marketer: STOP Sleep Apnea - direct mail marketer Hx Hypertension Yes: CONTROLLED ON MED 06/13/24 10:26 Hx Sleep Apnea No 06/13/24 10:26 CPAP BIPAP Do you snore loudly (louder No 06/13/24 10:26 than talking or can be heard Do you often feel tired/ No 06/13/24 10:26 fatigued/ sleepy during daytime? Has anyone observed you stop No 06/13/24 10:26 breathing during sleep? STOP Results Negative 06/13/24 10:26 QUESTION #5 FULL TEXT : Do you snore loudly (louder than talking or can be heard through closed doors)? 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 Specify any problems Hx of Preganancy in last 3 N/A 06/13/24 10:26 Months Nurse Filling Out Transfusion VCHRISTIN 06/13/24 10:26 & Questions: Date: 06/13/24 06/13/24 10:26 Time: 10:27 06/13/24 10:26 Patient unable to answer at this time (ie. confused, unrespo /Reproduction History /Reproductive History - direct mail marketer: /Reproductive Hx- direct mail marketer Hx Now Gestational Age (in weeks): EDC: Hx Hx Para Hx Section SAB PFSH Medical History (Updated 05/25/24 @ 00:01 by Ericka Mcconnell) Wears dentures Wears glasses Bruising Easy bruising High cholesterol Smoker Shortness of breath on exertion History of echocardiogram Cardiology follow-up encounter Stage 3b chronic kidney disease (CKD) Thrombocytopenia Chronic kidney insufficiency Pleural effusion Secondary pulmonary arterial hypertension Atherosclerotic heart disease of [place] coronary artery without angina pectoris Intention tremor Carotid stenosis, bilateral Hyperlipidemia Nonrheumatic aortic (valve) stenosis Essential hypertension Tobacco dependence Bilateral inguinal hernia Left carotid bruit Abdominal aortic aneurysm (AAA) Anemia Subcutaneous mass of back PUD (peptic ulcer disease) Cough Arthritis Home Medications ?Medication ?Instructions ?Recorded ?Last Taken ?Type aspirin 81 mg tablet,delayed 81 mg PO DAILY heart heal th 03/02/22 01/12/24 History release rosuvastatin 5 mg tablet (Crestor) 5 mg PO DAILY uzma sterol 03/02/22 03/02/22 History amlodipine 5 mg tablet 5 mg PO DAILY #30 tabs 02/28 Unknown Rx cholecalciferol (vitamin D3) 25 25 mcg PO DAILY Unknown History mcg (1,000 unit) capsule metoprolol tartrate 25 mg tablet 12.5 mg (1/2 x 25 mg) PO BID #90 03/22/24 Unknown Rx tabs acetaminophen 500 mg capsule 1,000 mg PO Q6H PRN pain 06/13/24 Unknown History fluticasone fur. 200 mcg-umeclid 1 inh inhalation RUFINA Y PRN SOB 06/13/24 Unknown History 62.5 mcg-vilant 25 mcg inhalat.powder (Trelegy Ellipta) Allergy/AdvReac Type Severity Reaction Status Date / Time No Known Allergies Allergy Verified 06/13/24 10:13 Family History (Reviewed 03/23/24 @ 12:51 by Carmina Tee SCIENTIFIC PROGRAMMER ANALYST, SCIENTIFIC PROGRAMMER ANALYST-C) Sister Asthma Mother Arthritis Diabetes Brother Cancer Unsure what kind- just a lump on his neck Surgical History (Updated 06/13/24 @ 10:25 by Flakita Kwok) Hx of inguinal hernia repair S/P inguinal hernia repair History of cardiac catheterization S/P AAA repair 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) History of left heart catheterization (11/27/18) History of aortic valve replacement (02/12/19) Social History (Reviewed 03/23/24 @ 12:51 by Carmina Tee SCIENTIFIC PROGRAMMER ANALYST, SCIENTIFIC PROGRAMMER ANALYST-C) Smoking Status: Current every day smoker tobacco type: cigarettes quit status: has quit before alcohol intake: never substance use type: does not use caffeine: Yes Type: coffee Number of servings: 3 what type of physical activity do you participate in: other frequency: 3-4 times per week seatbelt use: always Audit: Pertinent Findings Pertinent Findings EKG Perinent findings: Sinus bradycardia 10/2023 Echo (EF%) pertinent findings: Echocardiogram 04/29/2023: Interpretation Summary Normal size and thickness. Left ventricular systolic function is normal. The estimated ejection fraction is 55 %. Mean aortic valve gradient 13 mmHg. Normal prosthetic aortic valve. Mild (1+) aortic valve insufficiency. Heart catheterization pertinent findings: Heart catheterization from 11/27/2018: CONCLUSIONS Single vessel CAD. Known severe . RECOMMENDATIONS AVR + RCA revascularization CORONARY ANGIOGRAPHY DOMINANCE: Right Dominant LEFT HEART ASSESSMENT Left Ventricular Ejection Fraction: Not assessed LEFT MAIN: Mild luminal irregularities LEFT ANTERIOR DESCENDING ARTERY: Mild luminal irregularities CIRCUMFLEX ARTERY: Mild luminal irregularities RIGHT CORONARY ARTERY: MID RCA: 80 % Stenosis Consult pertinent findings: He had been diagnosed with aortic stenosis in 2012 and a follow-up echocardiogram had demonstrated severe aortic stenosis. He underwent coronary angiography which revealed 80% stenosis in the RCA. He has been referred to [facility] for aortic valve replacement and RCA revascularization. He had AVR plus CABG x1 (Perimount #23, SVG to RCA at [facility] on 02/12/2019). Postoperatively he did well and he had a 2D echo on April 10, 2019 at [facility] which revealed preserved EF, normally functioning prosthetic aortic valve with a peak gradient of 25 mm's of mercury and a mean gradient of 13 mmHg. He has been diagnosed with an abdominal aortic aneurysm and was sent up to [place] for an opinion. It was noted to be measuring 5.1 cm on his last abdominal pelvic CT scan. He did suggest to the surgeon there that he is currently not interested in aortic surgery. Patient was seen in the emergency room 12/28/2021 for abdominal pain. His abdomen/pelvis CT scan showed 5 cm infrarenal abdominal aortic aneurysm with adjacent retroperitoneal fluid suggesting aneurysm leakage. He was transferred to [facility] facility. On 12/28/21, he proceeded with on with a thoracoretroperitoneal ruptured juxtarenal abdominal aortic aneurysm repair. Additional pertinent findings: Abdominal Aorta US 12/22/22 Interpretation Summary Patent aorto-iliac bypass graft with normal velocities and no evidence of stenosis. Heterogenous collection surrounding graft, 6.51 x 11.07 x 5.6 cm with no flow identified. COMPLICATIONS No Complications Recommendation Anesthesia Recommendation Anesthesia recommendation: F/U recommended (Please obtain cardiac clearance )
--- NOTE | 2024-06-25 10:14 | PAT.ANE_ITS ---
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 When Was Last Pacemaker Check QUESTION #4 FULL TEXT: You/Your Family Experience fever (hyperthermia) with Anesthesia Last Oral Intake Last Oral intake: Last Oral Intake NPO since Meds taken in AM with sips of water? Meds patient instructed to take am of surgery PONV PONV - route rider supervisor: PONV - route rider supervisor Female No 06/13/24 10:26 HX of Motion Sickness No 06/13/24 10:26 HX of N/V After Surgery No 06/13/24 10:26 Non-Smoker No 06/13/24 10:26 Duration of Surgery greater Yes 06/13/24 10:26 than 60 minutes Number of Risk Factors 1 06/13/24 10:26 PONV Score Low Risk 06/13/24 10:26 Height & Weight Height & Weight: Anesthesia: Height & Weight Height 5 ft 6 in 05/16/24 22:09 Respiratory Assessment Respiratory Assessment - route rider supervisor: Respiratory Tract Infection Hx - route rider supervisor Hx Respiratory Tract Infection No 06/13/24 10:26 STOP Sleep Apnea STOP Sleep Apnea - route rider supervisor: STOP Sleep Apnea - route rider supervisor Hx Hypertension Yes: CONTROLLED ON MED 06/13/24 10:26 Hx Sleep Apnea No 06/13/24 10:26 CPAP BIPAP Do you snore loudly (louder No 06/13/24 10:26 than talking or can be heard Do you often feel tired/ No 06/13/24 10:26 fatigued/ sleepy during daytime? Has anyone observed you stop No 06/13/24 10:26 breathing during sleep? STOP Results Negative 06/13/24 10:26 QUESTION #5 FULL TEXT : Do you snore loudly (louder than talking or can be heard through closed doors)? 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 Specify any problems Hx of Preganancy in last 3 N/A 06/13/24 10:26 Months Nurse Filling Out Transfusion VCHRISTIN 06/13/24 10:26 & Questions: Date: 06/13/24 06/13/24 10:26 Time: 10:27 06/13/24 10:26 Patient unable to answer at this time (ie. confused, unrespo /Reproduction History /Reproductive History - route rider supervisor: /Reproductive Hx- route rider supervisor Hx Now Gestational Age (in weeks): EDC: Hx Hx Para Hx Section SAB PFSH Medical History Wears dentures Wears glasses Bruising Easy bruising High cholesterol Smoker Shortness of breath on exertion History of echocardiogram Cardiology follow-up encounter Stage 3b chronic kidney disease (CKD) Thrombocytopenia Chronic kidney insufficiency Pleural effusion Secondary pulmonary arterial hypertension Atherosclerotic heart disease of [place] coronary artery without angina pectoris Intention tremor Carotid stenosis, bilateral Hyperlipidemia Nonrheumatic aortic (valve) stenosis Essential hypertension Tobacco dependence Bilateral inguinal hernia Left carotid bruit Abdominal aortic aneurysm (AAA) Anemia Subcutaneous mass of back PUD (peptic ulcer disease) Cough Arthritis Home Medications ?Medication ?Instructions ?Recorded ?Last Taken ?Type aspirin 81 mg tablet,delayed 81 mg PO DAILY heart heal th 03/02/22 01/12/24 History release rosuvastatin 5 mg tablet (Crestor) 5 mg PO DAILY uzma sterol 03/02/22 03/02/22 History amlodipine 5 mg tablet 5 mg PO DAILY #30 tabs 02/28 Unknown Rx cholecalciferol (vitamin D3) 25 25 mcg PO DAILY Unknown History mcg (1,000 unit) capsule metoprolol tartrate 25 mg tablet 12.5 mg (1/2 x 25 mg) PO BID #90 03/22/24 Unknown Rx tabs acetaminophen 500 mg capsule 1,000 mg PO Q6H PRN pain 06/13/24 Unknown History fluticasone fur. 200 mcg-umeclid 1 inh inhalation RUFINA Y PRN SOB 06/13/24 Unknown History 62.5 mcg-vilant 25 mcg inhalat.powder (Trelegy Ellipta) Allergy/AdvReac Type Severity Reaction Status Date / Time No Known Allergies Allergy Verified 06/19/24 07:41 Family History Sister Asthma Mother Arthritis Diabetes Brother Cancer Unsure what kind- just a lump on his neck Surgical History Hx of inguinal hernia repair S/P inguinal hernia repair History of cardiac catheterization S/P AAA repair 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) History of left heart catheterization (11/27/18) History of aortic valve replacement (02/12/19) Social History Smoking Status: Current every day smoker tobacco type: cigarettes quit status: has quit before alcohol intake: never substance use type: does not use caffeine: Yes Type: coffee Number of servings: 3 what type of physical activity do you participate in: other frequency: 3-4 times per week seatbelt use: always Audit: Pertinent Findings HISTORY of Pertinent Findings History of Pertinent Findings: EKG Pertinent Findings EKG Perinent findings Sinus bradycardia 10/202306/13/24 12:11 Echo Pertinent Findings Echo (EF%) pertinent findings Echocardiogram 04/29/2023: 06/13/24 12:11 Interpretation Summary Normal size and thickness. Left ventricular systolic function is normal. The estimated ejection fraction is 55 %. Mean aortic valve gradient 13 mmHg. Normal prosthetic aortic valve. Mild (1+) aortic valve insufficiency. Heart Catheterization Pertinent Findings Heart catheterization 06/13/24 12:11 pertinent findings Heart catheterization from 11/27/2018: CONCLUSIONS Single vessel CAD. Known severe . RECOMMENDATIONS AVR + RCA revascularization CORONARY ANGIOGRAPHY DOMINANCE: Right Dominant LEFT HEART ASSESSMENT Left Ventricular Ejection Fraction: Not assessed LEFT MAIN: Mild luminal irregularities LEFT ANTERIOR DESCENDING ARTERY: Mild luminal irregularities CIRCUMFLEX ARTERY: Mild luminal irregularities RIGHT CORONARY ARTERY: MID RCA: 80 % Stenosis Consult Pertinent Findings Consult pertinent findings He had been diagnosed with 06/13/24 12:11 aortic stenosis in 2012 and a follow-up echocardiogram had demonstrated severe aortic stenosis. He underwent coronary angiography which revealed 80% stenosis in the RCA. He has been referred to [facility] for aortic valve replacement and RCA revascularization. He had AVR plus CABG x1 (Perimount #23, SVG to RCA at [facility] on 02/12/2019). Postoperatively he did well and he had a 2D echo on April 10, 2019 at [facility] which revealed preserved EF, normally functioning prosthetic aortic valve with a peak gradient of 25 mm's of mercury and a mean gradient of 13 mmHg. He has been diagnosed with an abdominal aortic aneurysm and was sent up to [place] for an opinion. It was noted to be measuring 5.1 cm on his last abdominal pelvic CT scan. He did suggest to the surgeon there that he is currently not interested in aortic surgery. Patient was seen in the emergency room 12/28/2021 for abdominal pain. His abdomen/pelvis CT scan showed 5 cm infrarenal abdominal aortic aneurysm with adjacent retroperitoneal fluid suggesting aneurysm leakage. He was transferred to [facility] facility. On 12/28/21, he proceeded with on with a thoracoretroperitoneal ruptured juxtarenal abdominal aortic aneurysm repair. Additional Pertinent Findings Additional pertinent findings 06/13/24 12:11 Abdominal Aorta US 12/22/22 Interpretation Summary Patent aorto-iliac bypass graft with normal velocities and no evidence of stenosis . Heterogenous collection surrounding graft, 6.51 x 11 .07 x 5.6 cm with no flow identified. COMPLICATIONS No Complications Pertinent Findings Consult pertinent findings: Cardiology visit. O4A. 06/19/2024. Preoperative cardiac examination. Patient is okay to undergo operation given lack of anginal/anginal equivalent symptoms. No further workup. Recommendation Anesthesia Recommendation Anesthesia recommendation: OPTIMIZED for anesthesia
[2024-06-27] VITALS (35 sets, daily range): BP systolic 119–221; BP diastolic 55–173; PULSE 56–89; RESP 14–26; TEMP 36.1–36.8; O2SAT 85–98; BMI 25.6
[2024-06-27] MEDS: Lactated Ringers 1,000 ML 15 ML IV (07:02)
--- NOTE | 2024-06-27 07:11 | HP.PCM_ITS ---
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 [facility] Medical History Wears dentures Wears glasses Bruising Easy bruising High cholesterol Smoker Shortness of breath on exertion History of echocardiogram Cardiology follow-up encounter Stage 3b chronic kidney disease (CKD) Thrombocytopenia Chronic kidney insufficiency Pleural effusion Secondary pulmonary arterial hypertension Atherosclerotic heart disease of [place] coronary artery without angina pectoris Intention tremor Carotid stenosis, bilateral Hyperlipidemia Nonrheumatic aortic (valve) stenosis Essential hypertension Tobacco dependence Bilateral inguinal hernia Left carotid bruit Abdominal aortic aneurysm (AAA) Anemia Subcutaneous mass of back PUD (peptic ulcer disease) Cough Arthritis Home Medications ?Medication ?Instructions ?Recorded ?Last Taken ?Type aspirin 81 mg tablet,delayed 81 mg PO DAILY heart heal th 03/02/22 01/12/24 History release rosuvastatin 5 mg tablet (Crestor) 5 mg PO DAILY uzma sterol 03/02/22 03/02/22 History amlodipine 5 mg tablet 5 mg PO DAILY #30 tabs 02/28 Unknown Rx cholecalciferol (vitamin D3) 25 25 mcg PO DAILY Unknown History mcg (1,000 unit) capsule metoprolol tartrate 25 mg tablet 12.5 mg (1/2 x 25 mg) PO BID #90 03/22/24 06/27/24 05:30 Rx tabs acetaminophen 500 mg capsule 1,000 mg PO Q6H PRN pain 06/13/24 Unknown History fluticasone fur. 200 mcg-umeclid 1 inh inhalation RUFINA Y PRN SOB 06/13/24 Unknown History 62.5 mcg-vilant 25 mcg inhalat.powder (Trelegy Ellipta) Allergy/AdvReac Type Severity Reaction Status Date / Time No Known Allergies Allergy Verified 06/27/24 06:56 Family History Sister Asthma Mother Arthritis Diabetes Brother Cancer Unsure what kind- just a lump on his neck Surgical History Hx of inguinal hernia repair S/P inguinal hernia repair History of cardiac catheterization S/P AAA repair 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) History of left heart catheterization (11/27/18) History of aortic valve replacement (02/12/19) Social History Smoking Status: Current every day smoker tobacco type: cigarettes quit status: has quit before alcohol intake: never substance use type: does not use caffeine: Yes Type: coffee Number of servings: 3 what type of physical activity do you participate in: other frequency: 3-4 times per week seatbelt use: always Vital Signs Vital Signs Vital Signs: 06/27/24 06:57 06/27/24 06:57 Temperature 97.8 F Temperature Source Temporal Pulse Rate 56 L Respiratory Rate 16 Respiratory Pattern Normal Blood Pressure 173/73 H Blood Pressure Mean 106 Blood Pressure Source Monitor Blood Pressure Position Sitting Blood Pressure Location Left Arm Pulse Ox 97 Oxygen Delivery Method Room Air Weight Weight: 72 kg Body Mass Index (BMI) 25.6
--- NOTE | 2024-06-27 07:14 | DCINST_ITS ---
Discharge Instructions Diet Discharge Diet: No restrictions DC O2, CPAP, BIPAP needs Home O2 Discharge instructions: No Dressing / Incision Discharge Activity: Return to Normal Activity and May Not Drive (while taking narcotic pain medications.) Dressing / Incision Call your doctor if you observe: Fever of 101 or Higher Follow Up Care Please Follow Up With: Pradip Mcclendon MD When: Call [phone] for an appointment Test Results: Test results from this visit will be discussed in further detail at your follow- up appointment, if applicable. Discharge Plan Admission Primary Reason for Your Visit: Resection of bladder tumor Attending Provider: Pradip Mcclendon Primary Care Provider: Andrés Carrasco Instructions Print Language: [place]ese Discharge Orders/Prescriptions Prescriptions: New ibuprofen 600 mg tablet 600 mg PO Q6H PRN (Reason: pain) Qty: 20 0RF Continued amlodipine 5 mg tablet 5 mg PO DAILY Qty: 30 11RF rosuvastatin [Crestor] 5 mg tablet 5 mg PO DAILY acetaminophen 500 mg capsule 1,000 mg PO Q6H PRN (Reason: pain) Trelegy Ellipta 200-62.5-25 mcg blister with device 1 inh inhalation DAILY PRN (Reason: SOB) cholecalciferol (vitamin D3) 25 mcg (1,000 unit) capsule 25 mcg PO DAILY metoprolol tartrate 25 mg tablet 12.5 mg PO BID Qty: 90 3RF Held aspirin 81 mg tablet,delayed release (DR/EC) 81 mg PO DAILY Hold Instructions: Resume on 07/11/24. Patient Comments: STOP PER DR. MCCLENDON PRIOR TO PROCEDURE Referrals / Follow Up: Andrés Carrasco MD [Primary Care Provider] - Pradip Mcclendon MD [Med Staff - Active Staff] - Disposition Disposition (needs filled in before D/C Order can be placed): Home, Self Care
--- NOTE | 2024-06-27 07:37 | PCM.PRE.AN2 ---
ASA Classification* ASA Classification ASA Classification: 3 Assessment & Plan Anesthesia* Anesthesia Assessment Anesthesia Assessment: Discussed sedation and/or anesthesia options, risks, benefits, and alternatives with patient/parents/legal guardian/POA. Questions invited. The patient/parents/legal guardian/POA seems to understand and agrees to proceed with anesthesia plan. Reviewed the physical assessment, medical history, allergy history and patient home medications list prior to surgery/procedure/anesthetic and documented any changes. Performed airway and anesthesia risk assessments. Anesthesia Type Anesthesia Type: General Anesthesia Focused Assessment* Temperature: 97.8 F Pulse Rate: 56 Blood Pressure: 173/73 Respiratory Rate: 16 Pulse Ox: 97 Airway Assessment Mouth opens: >3 cm Mallampati Score: II Focused Labs Anesthesia Preop lab: CBC WBC 7.3 K/mm3 (4.4-11.0) 05/16/24 22:35 05/16/24 RBC 4.64 M/mm3 (4.6-6.2) 05/16/24 22:35 05/16/24 Hgb 14.1 g/dL (13.0-16.5) 05/16/24 22:35 05/16/24 Hct 42.7 % (40-54) 05/16/24 22:35 05/16/24 Plt Count 151 K/mm3 (150-450) 05/16/24 22:35 05/16/24 CHEMISTRY Potassium 4.5 mmol/L (3.3-5.1) 05/16/24 22:35 05/16/24 Sodium 136 mmol/L (133-145) 05/16/24 22:35 05/16/24 Magnesium 1.9 mg/dL (1.6-2.6) 03/03/22 05:36 03/03/22 Phosphorus 4.9 mg/dL (2.5-4.9) 03/03/22 05:36 03/03/22 BUN 31 mg/dL (4-19) H 05/16/24 22:35 05/16/24 Creatinine 1.47 mg/dL (0.70-1.20) H 05/16/24 22:35 05/16/24 Glucose 145 mg/dL (70-99) H 05/16/24 22:35 05/16/24 TSH 3.680 uIU/mL (0.300-4.200) 05/10/24 15:16 05/10/24 COAG PT 12.8 SECONDS (11.7-14.9) 11/22/18 12:12 11/22/18 Pre-Assessment Diagnosis/Proposed Procedure Planned Operative Procedure(s): Cysto,Transurethal Resec Bladder,Olympus Anesthesia History 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 When Was Last Pacemaker Check QUESTION #4 FULL TEXT: You/Your Family Experience fever (hyperthermia) with Anesthesia Last Oral Intake Last Oral intake: Last Oral Intake NPO since 05:30 06/27/24 06:57 Meds taken in AM with sips of Yes 06/27/24 06:57 water? Meds patient instructed to metoprolol 06/27/24 06:57 take am of surgery PONV PONV - church supervisor: PONV - church supervisor Female No 06/13/24 10:26 HX of Motion Sickness No 06/13/24 10:26 HX of N/V After Surgery No 06/13/24 10:26 Non-Smoker No 06/13/24 10:26 Duration of Surgery greater Yes 06/13/24 10:26 than 60 minutes Number of Risk Factors 1 06/13/24 10:26 PONV Score Low Risk 06/13/24 10:26 Height & Weight Height & Weight: Anesthesia: Height & Weight Height 5 ft 6 in 06/27/24 06:57 Weight: 72 kg 06/27/24 06:57 Body Mass Index (BMI) 25.6 06/27/24 06:57 Respiratory Assessment Respiratory Assessment - church supervisor: Respiratory Tract Infection Hx - church supervisor Hx Respiratory Tract Infection No 06/15/24 08:41 STOP Sleep Apnea STOP Sleep Apnea - church supervisor: STOP Sleep Apnea - church supervisor Hx Hypertension Yes: CONTROLLED ON MED 06/15/24 08:41 Hx Sleep Apnea No 06/15/24 08:41 CPAP BIPAP Do you snore loudly (louder No 06/13/24 10:26 than talking or can be heard Do you often feel tired/ No 06/13/24 10:26 fatigued/ sleepy during daytime? Has anyone observed you stop No 06/13/24 10:26 breathing during sleep? STOP Results Negative 06/13/24 10:26 QUESTION #5 FULL TEXT : Do you snore loudly (louder than talking or can be heard through closed doors)? Tobacco Use History Tobacco Use History - church supervisor: Tobacco Use History - church supervisor Tobacco Use Smoking Status Current every day smoker 06/19/24 16:01 Hx Tobacco Use Yes 06/15/24 08:41 Years Smoking Packs Smoked per Day Smoking Cessation Date was within the last 15 years Hx Smoking Cessation Date Hx Smoking Cessation Counseling Hematologic Medial History Hematologic Hx - church supervisor: Hematologic Medical Hx - testing shaking shipping Hx of Blood Transfusion No 06/13/24 10:26 Hx of Transfusion in last 3 No 06/13/24 10:26 Months Date of Last Transfusion (if within last 3 months) Ever experience any problems No 06/13/24 10:26 with transfusion(s)? Specify any problems Hx of Preganancy in last 3 N/A 06/13/24 10:26 Months Nurse Filling Out Transfusion VCHRISTIN 06/13/24 10:26 & Questions: Date: 06/13/24 06/13/24 10:26 Time: 10:27 06/13/24 10:26 Patient unable to answer at this time (ie. confused, unrespo /Reproduction History /Reproductive History - church supervisor: /Reproductive Hx- church supervisor Hx Now Gestational Age (in weeks): EDC: Hx Hx Para Hx Section SAB Active Medications Active Medications: Current Medications Generic Name Dose Route Start Last Admin Trade Name Freq PRN Reason Stop Dose Admin Acetaminophen 650 mg 06/27/24 07:13 Acetaminophen 325 Mg Tablet PO Q4H PRN PRN Pain Score 1-5 Lactated Ringer's 1,000 mls @ 15 mls/hr 06/27/24 06:45 06/27/24 07:02 IV 15 mls/hr .Q48H YARY Administration Cefazolin Sodium 2 gm/ Sodium 110 mls @ 150 mls/hr 06/27/24 07:30 Chloride IV 06/27/24 08:13 INTRAOP ONE Lactated Ringer's 1,000 mls @ 100 mls/hr 06/27/24 07:15 IV .Q10H YARY Mitomycin 40 mg/ N/A 40 mls @ 2,400 mls/hr 06/27/24 08:45 INSTILLAT 06/27/24 08:46 X1 ONE Metoclopramide HCl 10 mg 06/27/24 07:13 Metoclopramide 10 Mg/2 Ml Vial IV X1 PRN NAUSEA/VOMITING Ondansetron HCl 4 mg 06/27/24 07:13 Ondansetron 4 Mg/2 Ml Vial IV X1 PRN NAUSEA Oxycodone HCl 5 - 10 mg 06/27/24 07:13 Oxycodone 5 Mg Tablet PO Q6H PRN PRN Pain Score 4-10 PFSH Medical History Wears dentures Wears glasses Bruising Easy bruising High cholesterol Smoker Shortness of breath on exertion History of echocardiogram Cardiology follow-up encounter Stage 3b chronic kidney disease (CKD) Thrombocytopenia Chronic kidney insufficiency Pleural effusion Secondary pulmonary arterial hypertension Atherosclerotic heart disease of [place] coronary artery without angina pectoris Intention tremor Carotid stenosis, bilateral Hyperlipidemia Nonrheumatic aortic (valve) stenosis Essential hypertension Tobacco dependence Bilateral inguinal hernia Left carotid bruit Abdominal aortic aneurysm (AAA) Anemia Subcutaneous mass of back PUD (peptic ulcer disease) Cough Arthritis Home Medications ?Medication ?Instructions ?Recorded ?Last Taken ?Type aspirin 81 mg tablet,delayed 81 mg PO DAILY heart health 03/02/22 01/12/24 History release Held on 06/27/24. Instructions: Resume on 07/11/24. rosuvastatin 5 mg tablet (Crestor) 5 mg PO DAILY cholesterol 03/02/22 03/02/22 History amlodipine 5 mg tablet 5 mg PO DAILY #30 tabs 02/28/23 Unknown Rx cholecalciferol (vitamin D3) 25 25 mcg PO DAILY 10/27/23 Unknown History mcg (1,000 unit) capsule metoprolol tartrate 25 mg tablet 12.5 mg (1/2 x 25 mg) PO BID #90 03/22/24 06/27/24 05:30 Rx tabs acetaminophen 500 mg capsule 1,000 mg PO Q6H PRN pain 06/13/24 Unknown History fluticasone fur. 200 mcg-umeclid 1 inh inhalation DAILY PRN SOB 06/13/24 Unknown History 62.5 mcg-vilant 25 mcg inhalat.powder (Trelegy Ellipta) ibuprofen 600 mg tablet 600 mg PO Q6H PRN pain #20 tabs 06/27/24 Unknown Rx Allergy/AdvReac Type Severity Reaction Status Date / Time No Known Allergies Allergy Verified 06/27/24 06:56 Family History Sister Asthma Mother Arthritis Diabetes Brother Cancer Unsure what kind- just a lump on his neck Surgical History Hx of inguinal hernia repair S/P inguinal hernia repair History of cardiac catheterization S/P AAA repair 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) History of left heart catheterization (11/27/18) History of aortic valve replacement (02/12/19) Social History Smoking Status: Current every day smoker tobacco type: cigarettes quit status: has quit before alcohol intake: never substance use type: does not use caffeine: Yes Type: coffee Number of servings: 3 what type of physical activity do you participate in: other frequency: 3-4 times per week seatbelt use: always Review of Systems (Anesthesia) ROS Narrative System reviewed and no additional complaints, except as documented.
--- NOTE | 2024-06-27 08:45 | BLA_PTH ---
PATIENT: ABELARDO ROBERTS LOC: MS3 U#:[id number] AGE/SX: 74/M ROOM: [facility] [place] RE06/27/[address]: Dr. Pradip Winston MD : 1950 BED: 1 DIS: 06/28/2024 SPEC #: [id number] RECD: 06/27/24 08:45 STATUS: EZEQUIEL REVijaya #: [id number] MORENITA: 06/27/24 08:[address]: Pradip Winston DEPT: SURGICAL PATHOLOGY RECD BY: Tobi Sanchez ENTERED: 06/27/24 13:16 SP TYPE: BLADDER BX OTHR DR: Dr. Andrés Carrasco MD Tissues: A - Urinary bladder, NOS Procedures: Immunohistochemical Stains Surgery Specimen Level IV IHC Stain ADDITIONAL HEADER OPERATION: Transurethral resection bladder PRE-OP DIAGNOSIS: Bladder tumor TISSUE SUBMITTED: A- Bladder tumor MICROSCOPIC DIAGNOSIS A. Bladder, tumor, transurethral resection bladder tumor: * Invasive urothelial carcinoma, high grade - see note and Comment. * Lamina propria involved. * Muscularis propria present and involved. * Suspicious for lymphovascular invasion - see note. * Note: IHC performed. The tumor cells are positive for NILES-3 and negative for PSAP, supporting the histologic diagnosis. Foci of possible lymphovascular invasion noted, however the tissue is distorted with cautery artifact. COMMENT Selected slides/images were reviewed in intradepartmental consultation by Dr Mao Brennan ([facility] pathology division, [facility]). MICROSCOPIC DESCRIPTION Slides are reviewed. All matched controls reacted appropriately. These tests were developed and their performance characteristics determined by [facility]. They may not have been cleared or approved by the U.S. Food and Drug Administration. The FDA has determined that such clearance or approval is not necessary.? The above immunohistochemical/dualISH?markers are ordered and reviewed by the Pathologist. GROSS DESCRIPTION A. Received in formalin in a container labeled with the patient's name, date of , and bladder tumor are multiple white-pink, friable, and papillary fragments of soft tissue measuring 3.5 x 2.9 x 0.9 cm in aggregate and 1.6 g together. The specimen is submitted in toto in A1-3. [facility] 06-27-2024 CPT:[id number] ADDENDUM ADDENDUM ADDENDUM ADDENDUM ADDENDUM ADDENDUM ADDENDUM ADDENDUM ADDENDUM ADDENDUM 07/31/2024 13:29 ADDENDUM 07/31/2024 13:29 ADDENDUM 07/31/2024 13:29 ADDENDUM 07/31/2024 13:29 ADDENDUM 07/31/2024 13:29 This addendum is added to incorporate an outside pathology consultation report. The case was examined at [facility] by Dr. Beltran (#[id number]) and the following diagnosis was rendered. A. Urinary bladder, transurethral resection: Invasive urothelial carcinoma, high-grade, involving muscularis propria. Please see complete above mentioned consultation report in EMR
[2024-06-27] MEDS: Cefazolin 2 GM in 0.9% Normal Saline (100mL Bag) 100 ML IV (08:47)
--- NOTE | 2024-06-27 09:18 | OP.PCM_ITS ---
Operative Report (Standard) Operative Information Date of Procedure: 06/27/24 Pre-Operative Diagnosis: Large bladder mass Post-Operative Diagnosis: The same Surgery/Procedure Performed: Transurethral resection of the large bladder mass appears invasive biological aide: No Type of Anesthesia: General RN Documented Start/Stop Times: Operation Date: 06/27/24 08:45 Case Time Into Pre-Op 06/27/24 06:33 Out of Pre-Op 06/27/24 08:46 Anesthesia Start 06/27/24 08:47 Into Room 06/27/24 08:47 Procedure Start 06/27/24 08:59 Procedure End 06/27/24 09:18 Procedure Start Time: 08:59 Procedure Stop Time: 09:18 Select all DRAINS/GRAFTS/IMPLANTS that apply: Drains (18 Malaysian Gamez catheter) Drain details: gamez Estimated Blood Loss: Minimal Specimen collected: Yes Description of specimen(s) removed: Tumor chips specimen bladder tumor Description of surgery: This is a 74-year-old male with a long history of smoking who presented to the office with gross hematuria burning with urination difficulty with urination on cystoscopy is found to have a lot of bullous edema around the orifice into his bladder and what appears to be a mass in the bladder neck so today do a resection of this mass Patient was taken back to the operating room after induction of anesthesia he he was intubated placed in dorsolithotomy position, the penis and testicles were prepped and draped in usual fashion I first dilated the meatus with sounds starting at 18 Malaysian up to 26 Malaysian I was unable to easily go into the urethra with a 24 Malaysian noncontinuous flow Olympus bipolar resectoscope with upon entering the bladder he had a lot of bullous edema around the bladder neck and then there was papillary tumor looking around the bladder neck but that I st arted resecting this and the look like an invasive tumor in the bladder neck as I resected the trigone on the left side the ureteral orifice was not able to be identified I then worked my way to the right side resecting this tumor and appeared to be invasive into the muscle very deep tumor I resected as deep as I could but then I could not resect deeper since the tumor was invasive I did find the right ureteral orifice after resecting. After resecting a significant amount of tissue tumor measured about 6 cm x 5 cm x 7 cm in size in total. It looked invasive. Possible diagnosis would be invasive bladder cancer the other possibility would be invasive prostate cancer. After resecting this tumor I then placed a Gamze catheter in the bladder we cauterized obtain hemostasis we put Mitomycin-C in the bladder for topical chemotherapy irrigation patient anesthetic was reversed taken back to the PACU in good condition he will go home today after the catheter is removed follow-up in the office in 2 weeks to go over the results of the resection. Surgical Findings: Large invasive bladder bladder mass at bladder neck Complications Complications: No Admit VTE Documentation VTE Present on Admission: No VTE Mechan Device Prophylaxis: SCD's VTE Pharm Prophylaxis ordered?: No
--- NOTE | 2024-06-27 09:34 | PCM.POST.ANE ---
Anesthesia: Postop Eval I Current Vital Signs Temperature: 97.3 F Pulse Rate: 60 Blood Pressure: 186/72 Respiratory Rate: 16 Pulse Ox: 98 Assessment Airway patent: Yes Spontaneous unlabored respirations: Yes nausea: No Vomiting: No Anesthesia Complication: No Fluid Hydration Crystalloid volume administer (ml): 500 Total IV fluid infused: 500 Progress Note Anesthesia document: Postop Eval 1 completed: Yes
--- NOTE | 2024-06-27 10:47 | SUR.PHASEI ---
gamez clamped from OR with verbal orders to unclamp and drain mitomycin c then remove fc in 1 hour, pt very painful in bladder and urethra area
--- NOTE | 2024-06-27 11:36 | POSTOPAN2_ITS ---
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 Spontaneous unlabored Yes 06/27/24 09:34 OTR OWNER OPERATOR TRUCK DRIVER.TNES respirations Mental status nausea No 06/27/24 09:34 OTR OWNER OPERATOR TRUCK DRIVER.TNES Vomiting No 06/27/24 09:34 OTR OWNER OPERATOR TRUCK DRIVER.TNES Anesthesia Postop Eval I: Fluid Summary Crystalloid volume administer 500 06/27/24 09:34 OTR OWNER OPERATOR TRUCK DRIVER.TNES (ml) Colloids volume administered ( ml) Blood Product volume administered (ml) Total IV fluid infused 500 06/27/24 09:34 OTR OWNER OPERATOR TRUCK DRIVER.TNES Anesthesia Postop Eval I: Summary Notes Anesthesia Complication No 06/27/24 09:34 OTR OWNER OPERATOR TRUCK DRIVER.TNES Anesthesia Complication Comment: Post-operative progress note Anesthesia: Postop Eval II Evaluation Mental status: Awake Pain Level: 4 nausea: No Vomiting: No
--- NOTE | 2024-06-27 11:36 | PCM.POSTANE2 ---
Anesthesia Postop Eval I Sum Postop Eval Completion status Anesthesia document: Postop Eval 1 completed: Yes Anesthesia Postop Eval I Summary Anesthesia Postop Eval I Summary: Anesthesia Postop Eval I: Assessment Summary Airway patent Yes 06/27/24 09:34 INSULATION MACHINE OPERATOR.TNES Spontaneous unlabored Yes 06/27/24 09:34 INSULATION MACHINE OPERATOR.TNES respirations Mental status nausea No 06/27/24 09:34 INSULATION MACHINE OPERATOR.TNES Vomiting No 06/27/24 09:34 INSULATION MACHINE OPERATOR.TNES Anesthesia Postop Eval I: Fluid Summary Crystalloid volume administer 500 06/27/24 09:34 INSULATION MACHINE OPERATOR.TNES (ml) Colloids volume administered ( ml) Blood Product volume administered (ml) Total IV fluid infused 500 06/27/24 09:34 INSULATION MACHINE OPERATOR.TNES Anesthesia Postop Eval I: Summary Notes Anesthesia Complication No 06/27/24 09:34 INSULATION MACHINE OPERATOR.TNES Anesthesia Complication Comment: Post-operative progress note Anesthesia: Postop Eval II Evaluation Mental status: Awake Pain Level: 4 nausea: No Vomiting: No
[2024-06-27] MEDS: Ipratropium/Albuterol Sulfate 3 ML AMPUL.NEB INHALATION ×2 (13:02→19:35)
[2024-06-27] MEDS: Acetaminophen 325 MG Tablet 650 MG PO (16:02)
[2024-06-27] MEDS: 0.9% Normal Saline (1000mL) 1,000 ML 50 ML IV (16:03)
[2024-06-27] MEDS: Budesonide Respules 0.5 MG/2 ML AMPUL.NEB. INHALATION (19:35)
[2024-06-27] MEDS: Atorvastatin Calcium 10 MG Tablet PO (23:09)
[2024-06-27] MEDS: Docusate Sodium 100 MG Capsule 200 MG PO (23:09)
[2024-06-27] MEDS: Metoprolol Tartrate 25 MG Tablet 12.5 MG PO (23:09)
[2024-06-27] MEDS: Ketorolac 15 MG/ML Vial IV (23:31)
[2024-06-28] VITALS (8 sets, daily range): BP systolic 147–152; BP diastolic 65–85; PULSE 59–70; RESP 14–18; TEMP 36.6–36.9; O2SAT 86–94
[2024-06-28 05:45] LABS: Absolute Lymphocyte Count 0.97 X10^3/uL (0.83-4.51); Absolute Neutrophil Count 6.6 X10^3/uL (2.0-7.7); Basophil# 0.01 X10^3/uL; Basophil% 0.1 % (0-1); Hematocrit 36.7 % (40-54); Lymphocyte # 0.97 X10^3/ul (0.83-4.51); Lymphocyte % 11.9 % (19-41); Mean Corp Hgb Conc 32.7 g/dL (32-36); Mean Corpuscular Hgb 30.5 pg (27.0-32.0); Mean Corpuscular Volume 93.4 fL (80-94); Mean Platelet Vol. 9.1 fl (6.2-12.0); Monocyte# 0.57 X10^3/uL; NRBC Flagged by Analyzer 0 % (0-5); Neutrophil # 6.57 X10^3/uL (2.7-7.7); Neutrophil % 80.8 % (47-70); Platelet Count 175 K/mm3 (150-450); RBC Distribution Width CV 13.6 % (11.6-14.6); RBC Distribution Width SD 46.7 fl (35.1-43.9); Red Blood Count 3.93 M/mm3 (4.6-6.2); White Blood Count 8.1 K/mm3 (4.4-11.0)
[2024-06-28 06:23] LABS: Anion Gap 12 (5-15); BUN 48 mg/dL (4-19); BUN/Creat Ratio 16.4 RATIO (10-20); Calcium,Total 8.1 mg/dL (7.6-11.0); Carbon Dioxide 20.1 mmol/L (21.0-32.0); Chloride 102 mmol/L (98-108); Creatinine, Serum 2.95 mg/dL (0.70-1.20); EST Glomerular Filtration Rate 22 (>60); Estimated Creatinine Clearance 19.82 ml/min (50-250); Glucose 132 mg/dL (70-99); Potassium 5.6 mmol/L (3.3-5.1); Sodium Level 133 mmol/L (133-145)
--- NOTE | 2024-06-28 06:48 | PCM.DC.SUM ---
Providers Date of Admission: 06/27/24 Date of Discharge: 06/28/24 Primary Care Physician: Dr. Andrés Carrasco MD Reason For Visit: Cysto,Transurethal Resec Bladder,Olympus Medications at Discharge Home Medications aspirin 81 mg tablet,delayed release 81 mg PO DAILY heart health 03/02/22 Held on 06/27/24. Instructions: Resume on 07/11/24. rosuvastatin 5 mg tablet (Crestor) 5 mg PO DAILY cholesterol 03/02/22 amlodipine 5 mg tablet 5 mg PO DAILY #30 tabs 02/28/23 cholecalciferol (vitamin D3) 25 mcg (1,000 unit) capsule 25 mcg PO DAILY 10/27/23 metoprolol tartrate 25 mg tablet 12.5 mg (1/2 x 25 mg) PO BID #90 tabs 03/22/24 acetaminophen 500 mg capsule 1,000 mg PO Q6H PRN pain 06/13/24 fluticasone fur. 200 mcg-umeclid 62.5 mcg-vilant 25 mcg inhalat.powder (Trelegy Ellipta) 1 inh inhalation DAILY PRN SOB 06/13/24 ibuprofen 600 mg tablet 600 mg PO Q6H PRN pain #20 tabs 06/27/24 Hospital Course Operations - (Transurethral resection of large bladder mass) Summary of Care Provided Minutes Spent on Discharge: 20 Hospital Course: 74-year-old male long history of smoking as well invasive looking bladder tumor status post resection, tumor is invasive, he is got left hydronephrosis, creatinine is getting worse recommended a nephrostomy tube he refused. Discussed options of management for his cancer he could have a cystectomy, not sure if he can get chemotherapy because of his creatinines too high, we could consider radiation therapy. For now he will go home follow-up in the office 2 weeks to review the pathology report and then will refer to medical oncology as he does not want a cystectomy. Weight / BMI Weight Weight: 72 kg Body Mass Index (BMI) 25.6 ABG / Lab / Microbiology Data 06/28/24 04:47 06/28/24 04:47 Laboratory: Laboratory Results - last 24 hr 06/28/24 04:47: WBC 8.1, RBC 3.93 L, Hgb 12.0 L, Hct 36.7 L, MCV 93.4, MCH 30.5, MCHC 32.7, RDW Std Deviation 46.7 H, RDW Coeff of Manjit 13.6, Plt Count 175, MPV 9.1, Immature Gran % (Auto) 0.200, Neut % (Auto) 80.8 H, Lymph % (Auto) 11.9 L, [place] % (Auto) 7.0, Eos % (Auto) 0.0, Baso % (Auto) 0.1, Absolute Neuts (auto) 6.6, Absolute Lymphs (auto) 0.97, Nucleated RBC % 0, Sodium 133, Potassium 5.6 H, Chloride 102, Carbon Dioxide 20.1 L, Anion Gap 12, BUN 48 H, Creatinine 2.95 H, Estim Creat Clear Calc 19.82 L, Est GFR (MDRD) Non-Af 22 L, BUN/Creatinine Ratio 16.4, Glucose 132 H, Calcium 8.1 D/C Instructions Discharge Diet: No restrictions Call your doctor if you observe: Fever of 101 or Higher DC O2, CPAP, BIPAP Needs Home O2 Discharge instructions: No Please Follow Up With: Pradip Mcclendon MD When: Call [phone] for an appointment Meaningful Use Info Meaningful Use Meaningful Use Diagnoses (Choose all that apply): None applicable Ischemic Stroke Statin Dosing Therapy Reference: STATIN DOSE THERAPY REFERENCE: * Patients > 75 years receive moderate or high dose statin therapy. * Patients 75 years or YOUNGER should receive HIGH intensity statin dose unless contraindicated. You will be required to document reason for non-treatment if statin daily dose does not meet guidelines. HIGH DOSE STATIN THERAPY DAILY Atorvastatin > than or = to 40 mg Rosuvastatin > than or = to 20 mg Amlodipine + Atorvastatin > than or = to 2.5/40 mg Ezetimibe + Simvastatin 10/80 mg Simvastatin 80mg Discharge Plan Admission Admit Date/Time: 06/27/24 15:22 Primary Reason for Your Visit: Resection of bladder tumor Attending Provider: Pradip Mcclendon Primary Care Provider: Andrés Carrasco Instructions Patient Instructions: Bladder Cancer TUR Discharge Orders/Prescriptions Prescriptions: New ibuprofen 600 mg tablet 600 mg PO Q6H PRN (Reason: pain) Qty: 20 0RF Continued amlodipine 5 mg tablet 5 mg PO DAILY Qty: 30 11RF rosuvastatin [Crestor] 5 mg tablet 5 mg PO DAILY acetaminophen 500 mg capsule 1,000 mg PO Q6H PRN (Reason: pain) Trelegy Ellipta 200-62.5-25 mcg blister with device 1 inh inhalation DAILY PRN (Reason: SOB) cholecalciferol (vitamin D3) 25 mcg (1,000 unit) capsule 25 mcg PO DAILY metoprolol tartrate 25 mg tablet 12.5 mg PO BID Qty: 90 3RF Held aspirin 81 mg tablet,delayed release (DR/EC) 81 mg PO DAILY Hold Instructions: Resume on 07/11/24. Patient Comments: STOP PER DR. MCCLENDON PRIOR TO PROCEDURE Referrals / Follow Up: Andrés Carrasco MD [Primary Care Provider] - Pradip Mcclendon MD [Med Staff - Active Staff] - Disposition Discharge Orders: Discharge Patient (Routine); Ordered 06/28/24 Ordered By: Dr. Pradip Mcclendon
[2024-06-28] MEDS: Ipratropium/Albuterol Sulfate 3 ML AMPUL.NEB INHALATION (07:19)
[2024-06-28] MEDS: Budesonide Respules 0.5 MG/2 ML AMPUL.NEB. INHALATION (07:20)
[2024-06-28] MEDS: Enoxaparin 40 MG/0.4 ML Syringe SC (08:44)
[2024-06-28] MEDS: Metoprolol Tartrate 25 MG Tablet 12.5 MG PO (08:44)
[2024-06-28] MEDS: Sodium Polystyrene Sulfonate 15 GM/60 ML UDC PO (08:48)
--- NOTE | 2024-06-28 09:05 | CASEMGMT ---
Addendum entered by Emilee Leblanc 06/28/24 12:01: Referral sent to [facility] via [facility] for home oxygen. ANGELA MEHTA into pt room, pt aware of homegoing oxygen instructions and liter flow ordered. Pt and son deny any further questions. Addendum entered by Emilee Leblanc 06/28/24 11:56: VM from Dr. Winston's nurse Alda who states Dr. Winston doesn't usually sign for oxygen. TC to Dr. Winston's office, spoke with Minal, she is aware this RN TYSON spoke with who requested rx be faxed to office. She will obtain signature and fax back. Addendum entered by Emilee Leblanc 06/28/24 10:32: Spoke with Dr. Winston who is aware pt is qualifying for home oxygen. Faxed rx to his office for signature at this time. Addendum entered by Emilee Leblanc 06/28/24 10:21: [id number]- Paged Dr. Winston at this time to make aware pt qualifies for home oxygen. Original Note: ANGELA MEHTA notified by pt nurse that pt qualifies for home oxygen. RN CM into pt room, pt son present as well. Pt sitting up in bed in no distress with oxygen on. Pt states he has had oxygen in the past and then was able to be weaned off of it. Pt does see [place] [facility]. Pt had his oxygen through [facility] before and would like to use them again. Pt denies need for a list of other options. Pt has a pox but it needs batteries which he can get. Pt lives alone in a single story apt with one step to enter. Pt reports he is I in ADL/IADLs and denies concerns at home. Pt drives self. Pt has a walker but doesn't use. Paged Dr. Winston to make aware that pt qualifies for home oxygen.
== END 2024-06-28 13:38 | disposition home or self-care (01) ==
LOC: SDC 15:31 → MS3 15:31
PROVIDERS: Admitting Provider Urology; PCP Family Medicine; Referring Provider Urology; Visit Provider Urology
PROC: 0TBB8ZZ Excision of Bladder, Via Natural or Artificial Opening Endoscopic (ICD-10-PCS; CPT 52240; principal; 2024-06-27 08:35)
DX: C67.5 Malignant neoplasm of bladder neck (principal); I27.21 Secondary pulmonary arterial hypertension; N18.32 Chronic kidney disease, stage 3b; N13.30 Unspecified hydronephrosis; I25.10 Atherosclerotic heart disease of native coronary artery without angina pectoris; I12.9 Hypertensive chronic kidney disease with stage 1 through stage 4 chronic kidney disease, or unspecified chronic kidney disease; F17.210 Nicotine dependence, cigarettes, uncomplicated; E78.00 Pure hypercholesterolemia, unspecified; Z79.82 Long term (current) use of aspirin; Z79.899 Other long term (current) drug therapy; Z95.2 Presence of prosthetic heart valve
CPT/HCPCS: 52240; 00912; 36415; 80048; 84132; 85025; 88305; 88341; 88342; 94640; 94668; 96372; 96374; 99221; 99406; J9280; G0378; J2405

== ENCOUNTER → 2024-07-09 | Outpatient (CLI) | payer MEDICARE, SELFPAY ==
[2024-07-09 12:23] LABS: Anion Gap 10 (5-15); BUN 38 mg/dL (4-19); Calcium,Total 9.2 mg/dL (7.6-11.0); Carbon Dioxide 26.1 mmol/L (21.0-32.0); Chloride 105 mmol/L (98-108); Creatinine, Serum 1.74 mg/dL (0.70-1.20); EST Glomerular Filtration Rate 41 (>60); Glucose 108 mg/dL (70-99); Potassium 4.8 mmol/L (3.3-5.1); Sodium Level 141 mmol/L (133-145)
== END | disposition home or self-care (01) ==
LOC: MTLAB 09:11
PROVIDERS: PCP Family Medicine; Referring Provider Family Medicine; Visit Provider Family Medicine
DX: E11.22 Type 2 diabetes mellitus with diabetic chronic kidney disease (principal); N18.30 Chronic kidney disease, stage 3 unspecified
CPT/HCPCS: 36415; 80048

== ENCOUNTER → 2024-09-21 | Outpatient (CLI) | payer MEDICARE, SELFPAY ==
--- OUTSIDE RECORDS SUMMARY | 2024-09-21 07:49 | XMS RPT_ITS | CCD ---
Author Organization [facility] Care Team Providers Care Hot Cell Technician Name Role Phone Padmini Carrasco MD Primary Care Provider Dr. Ezekiel Carrasco Primary Care Provider [phone] Dr. Ezekiel Carrasco Referring Provider Dr. Raheem Farrar Attending Provider Padmini Carrasco MD Primary Care Provider Dr. Ezekiel Carrasco Primary Care Provider [phone] Dr. Ezekiel Carrasco Referring Provider Moris INSTALLATION TECH, INSTALLATION TECH-C Tc Larson Attending Provider Dr. Nhan Garland Emergency Provider Dr. Beatris Banks Attending Provider Dr. Beatris Banks Admit Provider Dr. Beatris Banks Other Provider Randal INSTALLATION TECH, INSTALLATION TECH-C Carmina Attending Provider Dr. Kwame Alex Attending Provider Dr. Raheem Farrar Attending Provider KALPANA Rahman Attending Provider KALPANA Rahman Other Provider Dr. Ezekiel Carrasco Primary Care Provider [phone] Dr. Nhan Garland Emergency Provider Dr. Beatris Banks Attending Provider Dr. Beatris Banks Admit Provider Dr. Beatris Banks Other Provider Dr. Ezekiel Carrasco Referring Provider Moris INSTALLATION TECH, INSTALLATION TECH-Quin Larson Attending Provider Randal INSTALLATION TECH, INSTALLATION TECH-C Carmina Attending Provider Dr. Kwame Alex Attending Provider Gregory ACUNA, PA Tonia Referring Provider Dr. Raheem Farrar Attending Provider Bisuman PA, PA Tonia Attending Provider Gregory PA, PA Tonia Other Provider Randal SLAUGHTER, SUKHJINDER-Quin Grewal Referring Provider Radnal SLAUGHTER, SUKHJINDER-Quin Grewal Other Provider Dr. Noe Suarez Attending Provider Dr. Bernardo Zuñiga Attending Provider Sundar ACUNA, PA Isela Regalado Attending Provider Dr. Ezekiel Carrasco Primary Care Provider KALPANA Jenkins Attending Provider Gregory, PA Tonia Other Provider Dr. Ezekiel Carrasco Referring Provider Dr. Ezekiel Carrasco Primary Care Provider Gregory, KALPANA Randall Attending Provider Gregory, PA Tonia Other Provider Dr. Ezekiel Carrasco Primary Care Provider Dr. Kwame Alex Attending Provider KALPANA Doyle Referring Provider Dr. Ezekiel Carrasco Referring Provider Randal SLAUGHTER NP-Quin Grewal Attending Provider Benjamin SLAUGHTER NP-Quin Don Attending Provider Dr. Ezekiel Carrasco Primary Care Provider [phone] Dr. Ezekiel Carrasco Referring Provider Randal INSTALLATION TECH, INSTALLATION TECH-C Carmina Attending Provider [phone] Benjamin INSTALLATION TECH, INSTALLATION TECH-C Farheen Attending Provider Dr. Raheem Farrar Attending Provider Luna CALLE, Dr. Bowen Primary Care Provider Eran CALLE, Dr. Camarillo Attending Provider Eran CALLE, Dr. Camarillo Referring Provider [phone] Eran CALLE, Dr. Camarillo Other Provider Luna CALLE, Dr. Bowen Referring Provider Randal INSTALLATION TECH-C, Carmina Attending Provider Randal INSTALLATION TECH-C, Carmina Referring Provider Luna CALLE, Dr. Bowen Attending Provider [phone] Dr. Jeffery Turpin DO Emergency Provider Luna CALLE, Dr. Bowen Primary Care Provider Dr. Padmini Carrasco MD Referring Provider Dr. Jeffery Turpin DO Attending Provider Catrachito CALLE, Dr. Pradip Small Attending Provider [phone] Catrachito CALLE, Dr. Pradip Small Referring Provider [phone] Nito Jaramillo Attending Provider [phone] Luna CALLE, Dr. Bowen Primary Care Provider Randal INSTALLATION TECH-C, Carmina Attending Provider Catrachito CALLE, Dr. Pradip Small Admit Provider [phone] Padmini Carrasco MD Primary Care Provider Pradip Mcclendon MD Unavailable Vicente RN, Rakel Carrasco MD, Dr. Bowen Primary Care Provider Luna CALLE, Dr. Bowen Referring Provider Benjamin INSTALLATION TECHCharlyC, Farheen Attending Provider Abrahan CALLE, Stacy F Unavailable Darren CALLE, Luigi Unavailable Catrachito, Austin Referring Unavailable Catrachito, Pradip Small Attending Unavailable Ranney, Christopher Primary Care Unavailable Catrachito, Austin Referring Unavailable Ranney, Christopher Primary Care Unavailable Catrachito, Pradip Small Attending Unavailable Ranney, Christopher Primary Care Unavailable Jeffery Turpin Attending Unavailable Evgeny Jacobo Attending Unavailable Ranney, Christopher Primary Care Unavailable Calabretta Marquise Referring Unavailable Ranney, Christopher Primary Care Unavailable Marquise Barillas Attending Unavailable Eran Marquise Consulting Unavailable Calabretta Marquise Referring Unavailable Ranney, Christopher Primary Care Unavailable Ranney, Christopher Referring Unavailable Benjamin SLAUGHTER, Farheen Attending Unavailable Marquise Barillas Attending Unavailable Ranney, Christopher Primary Care Unavailable Ranney, Christopher Referring Unavailable Ranney, Christopher Primary Care Unavailable Ranney, Christopher Referring Unavailable Ranney, Christopher Attending Unavailable Ranney, Christopher Primary Care Unavailable Randal INSTALLATION TECH, Carmina Referring Unavailable Randal INSTALLATION TECH, Carmina Attending Unavailable Ranney, Christopher Primary Care Unavailable Ranney, Christopher Referring Unavailable Anthony Rivers Attending Unavailable Catrachito, Pradip Small Referring Unavailable CatrachitoPradip Attending Unavailable Ranney, Christopher Primary Care Unavailable Catrachito, Austin Admitting Unavailable Calabretta Marquise Attending Unavailable Ranney, Christopher Primary Care Unavailable Calabretta Marquise Referring Unavailable Ranney, Christopher Primary Care Unavailable CalabrJeanna shellony Attending Unavailable Calabretta Marquise Referring Unavailable Ranney, Christopher Attending Unavailable Ranney, Christopher Primary Care Unavailable Ranney, Christopher Referring Unavailable Catrachito, Pradip Small Attending Unavailable Ranney, Christopher Primary Care Unavailable Catrachito, Austin Referring Unavailable Nito Rosales Attending Unavailable Ranney, Christopher Primary Care Unavailable Ranney, Christopher Referring Unavailable Ranney, Christopher Primary Care Unavailable Ranney, Christopher Referring Unavailable Calabretta, Marquise Attending Unavailable Padmini Carrasco Primary Care Unavailable Padmini Carrasco Referring Unavailable Eran, Marquise Attending [facility]available [facility] Unavailable SamymissionPadmini Referring Unavailable Carmina Tee NP Attending Unavailable Samymission, [place] Primary Care Unavailable Eran, Marquise Attending Unavailable Eran, Marquise Consulting Unavailable Calabretta, Marquise Referring Unavailable ABRAHAN, STACY F Attending Unavailable [facility] Primary Care Unavailabl e ABRAHAN, STACY F Attending Unavailable [facility] Primary Care Unavailabl e ABRAHAN, STACY F Admitting Unavailable ABRAHAN, STACY F Attending Unavailable ABRAHAN, STACY F Referring Unavailable [facility] Primary Care Unavailabl e ABRAHAN, STACY F Referring Unavailable [facility] Primary Care Unavailabl e ABRAHAN, STACY F Referring Unavailable [facility] Primary Care Unavailabl e Riccardo RN, Vivienne Unavailable Unavailable Anthony Rivers DO Unavailable Mayra Covarrubias Unavailable Unavailabl e ABRAHAN, STACY F Referring Unavailable [facility] Primary Care Unavailabl e ANTHONY RIVERS Attending Unavailable SELF Referring Unavailable [facility] Primary Care Unavailabl e CHRISTIANSON, CODEY Referring Unavailable [facility] Primary Care Unavailabl e CHRISTIANSON, CODEY Referring Unavailable [facility] Primary Care Unavailabl e MALATHI CHRISTIANSONLPA Attending Unavailable PRADIP MCCLENDON Referring Unavailable [facility] Primary Care Unavailabl e ABRAHAN, STACY F Referring Unavailable [facility] Primary Care Unavailabl e [facility] Primary Care Unavailabl e ANTHONY RIVERS Referring Unavailable [facility] Primary Care Unavailabl e CHRISTIANSON, CODEY Referring Unavailable [facility] Primary Care Unavailabl e LUIGI BANKS Attending Unavailable [facility] Primary Care Unavailabl e [facility] Primary Care Unavailabl e LUIGI BANKS Attending Unavailable ANTHONY RIVERS Referring Unavailable [facility] Primary Care Unavailabl e Medications Current Medications Medication Drug Class(es) Dates Sig (Normalized) Sig (Original) acetaminophen 500 mg oral capsule (20 sources) Start: 06-13-2024 take 2 capsules by mouth every six hours as needed for pain Acetaminophen 500 mg capsule Active 1000 mg PO EVERY 6 HOURS as needed for pain June 13, 2024 12:00am Start: 01-06-2022 take 650 mg by mouth every four hours Acetaminophen Active 650 MG PO Q4H January 06, 2022 1:00am Start: 01-01-2022 End: 10-24-2023 take 2 tablets by mouth every four hours acetaminophen (TYLENOL) 325 mg tablet Take 2 tablets by mouth every 4 hours. 01/01/2022 Active Comment on above: Take 2 tablets by [facility] every 4 hours. amLODIPine 5 mg oral tablet (20 sources) Dihydropyridine Calcium Channel Jami Start: take 1 tablet by mouth once daily Amlodipine 5 mg tablet Active 5 mg PO DAILY 06 01February 28, 2023 1:00am aspirin 81 mg chewable tablet (20 sources) Platelet Aggregation Inhibitor, Nonsteroidal Anti-inflammatory Drug Start: take 1 tablet by mouth once daily aspirin 81 mg chewable tablet Take 1 tablet by mouth once daily. 30 tablet 02/21/2019 Active Start: 12-06-2018 End: 03-02-2022 take 1 tablet by mouth once daily Aspirin 81 mg tablet,delayed release (DR/EC) Active 81 mg PO DAILY March 02, 2022 1:09pm [facility] On Hold: Resume on 07/11/24. Start: 05-14-2018 End: 11-01-2018 take 1 tablet by mouth once daily Aspirin 81 MG tablet,chewable Discontinued 81 mg PO DAILY May 14, 2018 12:00am November 01, 2018 8:23am Comment on above: Take 1 tablet by darryl once daily. cholecalciferol 0.025 mg oral capsule (20 sources) Vitamin D Start: 10-27-19 take 1 capsule by mouth once daily Cholecalciferol (Vitamin D3) 25 mcg (1,000 unit) capsule Active 25 ug PO DAILY October 27, 2023 12:00am Start: 03-02-2022 End: 10-24-2023 take 1 tablet by mouth once daily Cholecalciferol (Vitamin D3) 25 mcg (1,000 unit) Tablet Discontinued 25 ug PO DAILY March 02, 2022 1:00am October 24, 2023 8:28am supplement take 1 capsule by [facility] once daily cholecalciferol, vitamin D3, (VITAMIN D-3) 10 mcg (400 unit) cap Take 400 Units by mouth once daily. Active Flqyhfzgujw-Honygqmje-Yuwfih er (20 sources) Start: 06-13-2024 Csvxzexunhm-Xjiynyzud-Oslhoo er (Trelegy Ellipta) 200-62.5-25 mcg blister with device Active 1 NMA INHALATION DAILY as needed for SOB June 13, 2024 12:00am Start: 03-23-2024 End: 06-13-2024 Ufvsharxblj-Fdqucrtfn-Tjskzm er (Trelegy Ellipta) 200-62.5-25 mcg blister with device Discontinued 1 NMA INHALATION DAILY 60 March 23, 2024 1:57pm June 13, 2024 10:19am Start: 03-23-2024 End: 06-13-2024 Agfjaksjqvq-Kpokrpujf-Sixpyf er (Trelegy Ellipta) 200-62.5-25 mcg blister with device Discontinued 1 NMA INHALATION DAILY 60 March 23, 2024 1:57pm June 13, 2024 10:19am Start: 03-23-2024 Fluticasone-Um eclidin-Vilanter (Trelegy Ellipta) 200-62.5-25 mcg blister with device Active 1 NMA INHALATION DAILY 60 March 23, 2024 1:57pm Start: 01-27-2023 End: 03-23-2024 Znofjywfytc-Ajjzldtjc-Mxvvzk er (Trelegy Ellipta) 200-62.5-25 mcg blister with device Discontinued 1 NMA INHALATION DAILY 60 January 27, 2023 1:00am March 23, 2024 1:58pm Start: 01-27-2023 End: 03-23-2024 Blnktfdozrp-Kvkdcmyah-Rptyml er (Trelegy Ellipta) 200-62.5-25 mcg blister with device Discontinued 1 NMA INHALATION DAILY January 27, 2023 1:00am March 23, 2024 1:58pm Start: 01-27-2023 Fluticasone-Um eclidin-Vilanter (Trelegy Ellipta) 200-62.5-25 mcg blister with device Active 1 INH INHALATION DAILY January 27, 2023 1:00am Start: 01-27-2023 Fluticasone-Um eclidin-Vilanter (Trelegy Ellipta) 200-62.5-25 mcg blister with device Active 1 INH INHALATION DAILY January 27, 2023 12:00am erequenzwzf-lsbgkldsg-hsugpb er (TRELEGY ELLIPTA) 200-62.5-25 mcg inhalation powder (15 sources) take 1 puff(s) by inhalation once daily cdhwwbxlynr-ykuwnfdav-cxslmvdm (TRELEGY ELLIPTA) 200-62.5-25 mcg inhalation powder Inhale 1 puff as instructed once daily. Active lisinopril 10 mg oral tablet (20 sources) Angiotensin Converting Enzyme Inhibitor S t a r t : 0 8 - 1 2 - 2 0 2 1 take 10 mg by mouth once daily Lisinopril Active 10 MG PO DAILY September 17, 2020 11:00pm Start: 11-01-2018 End: 03-14-2019 take 1 tablet by mouth once daily Lisinopril 20 mg tablet Discontinued 20 mg PO DAILY November 01, 2018 12:00am March 14, 2019 9:49am Comment on above: Take 10 mg by mouth once daily. ondansetron 8 mg oral tablet (1 source) Serotonin-3 Receptor Antagonist Start: take 1 tablet by mouth every eight hours as needed for nausea and vomiting ondansetron (ZOFRAN) 8 mg tablet Indications: Malignant neoplasm of overlapping sites of bladder (HCC) , Malignant neoplasm of urinary bladder, unspecified site (HCC) Take 1 tablet by mouth every 8 hours as needed (For chemotherapy induced nausea and vomiting.). 30 tablet 2 09/12/2024 Active phenazopyridine hydrochloride 100 mg oral tablet (18 sources) Start: End: take 1 tablet by mouth every eight hours as needed phenazopyridine (PYRIDIUM) 200 mg tablet Take 1 tablet by mouth three times a day as needed (burning when urinating) for up to 5 days. Turns urine bright orange and stains 20 tablet 08/29/2024 09/03/2024 Active Start: 06-21-2024 take 1 tablet by darryl th three times daily phenazopyridine (PYRIDIUM) 100 mg tablet Take 100 mg by mouth three times a day. 06/21/2024 Active Start: 05-17-2024 End: 06-13-2024 take 1 tablet by mouth three times daily Phenazopyridine (Pyridium) 200 mg tablet Discontinued 200 mg PO THREE TIMES A DAY 6 2 0 May 17, 2024 12:00am June 13, 2024 10:18am rosuvastatin calcium 5 mg oral tablet (20 sources) HMG-CoA Reductase Inhibitor Start: 03-19-2020 End: 03-02-2022 take 1 tablet by mouth once daily Rosuvastatin (Crestor) 5 mg tablet Active 5 mg PO DAILY March 02, 2022 1:09pm cholesterol Comment on above: Take 5 mg by mouth o nce daily. traMADol hydrochloride 50 mg oral tablet (20 sources) Opioid Agonist Start: 09-12-2024 End: 09-19-2024 take 1 tablet by mouth every twelve hours as needed for pain traMADol (ULTRAM) 50 mg tablet Indications: Malignant neoplasm of overlapping sites of bladder (HCC) , Malignant neoplasm of urinary bladder, unspecified site (HCC) Take 1 tablet by mouth every 12 hours as needed for pain for up to 7 days. 14 tablet 09/12/2024 09/19/2024 Active Start: 03-14-2019 End: 09-12-2019 take 1 tablet by mouth every six hours as needed Tramadol 50 mg tablet Discontinued 50 mg PO EVERY 6 HOURS as needed March 14, 2019 1:00am September 12, 2019 11:41am Completed/Discontinued Medications Medication Drug Class(es) Dates Sig (Normalized) Sig (Original) acetaminophen 325 mg / HYDROcodone bitartrate 5 mg oral tablet (20 sources) Opioid Agonist Start: 05-14-2018 End: 05-17-2018 Hydrocodone-Acetami nophen 1 TABLET tablet Discontinued 1 {tbl} PO EVERY 6 HOURS NEEDED as needed for Pain 10 3 0 May 14, 2018 12:00am May 16, 2018 12:00am May 17, 2018 12:09am Fracture of left ankle Other fracture of left lower leg, initial encounter for closed fracture Start: 05-14-2018 End: 05-17-2018 take 1 tablet by mouth every six hours as needed Hydrocodone-Acetaminophen Discontinued 1 TABLET PO EVERY 6 HOURS NEEDED 10 3 May 14, 2018 12:00am May 17, 2018 12:09am albuterol 0.83 mg/ml inhalation solution (20 sources) beta2-Adrenergic Agonist Start: 03-02-2022 End: 10-24-2023 take 2.5 mg by inhalation four times daily as needed Albuterol Sulfate 2.5 mg /3 mL (0.083 %) solution for nebulization Discontinued 2.5 mg INHALATION 4 TIMES DAILY as needed for Shortness Of Breath March 02, 2022 1:00am October 24, 2023 8:28am Start: 03-14-2019 End: 10-24-2023 Albuterol Sulfate 90 mcg/act uation HFA aerosol inhaler Discontinued 2 NMA INHALATION Q4H as needed for Shortness Of Breath March 14, 2019 1:00am October 24, 2023 8:28am Start: 03-14-2019 take 1 puff(s) by in halation every four hours Albuterol Sulfate Active 2 PUFF INHALATION Q4H March 14, 2019 1:00am Start: 02-20-2019 take 2 puff(s) by in halation every four hours as needed for wheezing albuterol HFA (PROAIR HFA) 90 mcg/actuation inhaler Inhale 2 Puffs as instructed every 4 hours as needed for Wheezing/Shortness of Breath. 1 Inhaler 1 02/20/2019 Active Comment on above: Inhale 2 Puffs as in structed every 4 hours as needed for Wheezing/Shortness of Breath. atorvastatin 40 mg oral tablet (20 sources) HMG-CoA Reductase Inhibitor Start: End: take 1 tablet by mouth once daily Atorvastatin 40 mg tablet Discontinued 40 mg PO DAILY 06 01December 06, 2018 12:00am March 19, 2020 10:50am 120 actuat budesonide 0.16 mg/actuat / formoterol fumarate 0.0045 mg/actuat metered dose inhaler (20 sources) Corticosteroid, beta2-Adrenergic Agonist Start: End: Budesonide-Formoter ol (Symbicort) 160-4.5 mcg/actuation HFA aerosol inhaler Discontinued 2 NMA INHALATION TWICE A DAY November 22, 2018 12:00am March 14, 2019 9:49am Start: 11-22-2018 End: 03-14-2019 take 1 puff(s) by inhalation twice daily Budesonide-Formoterol (Symbicort) 160-4.5 mcg/actuation HFA aerosol inhaler Discontinued 2 PUFF INHALATION TWICE A DAY November 22, 2018 12:00am March 14, 2019 9:49am Start: 11-14-2018 End: 11-17-2018 Budesonide-Formoterol 1 INHA LER inhaler Discontinued 2 NMA INHALATION DAILY November 14, 2018 12:00am November 17, 2018 4:29pm Start: 11-14-2018 End: 11-17-2018 take 1 puff(s) by inhalation once daily Budesonide-Formoterol Discontinued 2 PUFF INHALATION DAILY November 14, 2018 12:00am November 17, 2018 4:29pm calcium carbonate 1250 mg oral tablet (16 sources) Start: 10-27-2023 End: 06-13-2024 take 1 tablet by mouth once daily Calcium Carbonate 500 mg calcium (1,250 mg) tablet Discontinued 500 mg PO DAILY October 27, 2023 12:00am June 13, 2024 10:18am Start: 02-28-2023 End: 10-24-2023 take 1 tablet by mouth once daily Calcium Carbonate (Oyster Shell Calcium) 500 mg calcium (1,250 mg) tablet Discontinued 500 mg PO DAILY February 28, 2023 1:00am October 24, 2023 8:28am cephalexin 500 mg oral capsule (6 sources) Cephalosporin Antibacterial Start: 05-17-2024 End: 06-13-2024 take 1 capsule by mouth three times daily Cephalexin 500 mg capsule Discontinued 500 mg PO THREE TIMES A DAY 21 7 0 May 17, 2024 12:00am June 13, 2024 10:18am clindamycin 300 mg oral capsule (20 sources) Lincosamide Antibacterial Start: 03-29-2022 End: 03-30-2022 take 2 capsules by mouth three times daily, then take 3 capsules by mouth three times daily Clindamycin Hcl 150 mg capsule Discontinued 150 mg PO THREE TIMES A DAY 21 7 0 March 29, 2022 1:00am April 04, 2022 1:00am March 30, 2022 9:32am Take with 300mg for a total of 450mg PO TID Start: 03-29-2022 End: 03-30-2022 Clindamycin Hcl 300 mg capsu le Discontinued 300 mg PO THREE TIMES A DAY 21 7 0 March 29, 2022 1:00am April 04, 2022 1:00am March 30, 2022 9:32am Take with 150mg for a total of 450mg PO TID Start: 03-29-2022 End: 03-30-2022 take 300 mg by mouth three times daily, then take 450 mg by mouth three times daily Clindamycin Hcl Discontinued 150 MG PO THREE TIMES A DAY 7 March 29, 2022 1:00am March 30, 2022 9:32am Take with 300mg for a total of 450mg PO TID collagenase 0.25 unt/mg topical ointment (19 sources) Collagen-specific Enzyme Start: 04-12-2022 End: 02-28-2023 Collagenase Clostridium Histo. (Santyl) 250 unit/gram ointment Discontinued 1 NMA TOPICAL DAILY April 12, 2022 1:00am February 28, 2023 10:39am Apply nickel-thick amount to wounds daily. Start: 04-12-2022 End: 02-28-2023 Collagenase Clostridium Hist o. (Santyl) 250 unit/gram ointment Discontinued 1 APPLIC TOPICAL DAILY April 12, 2022 1:00am February 28, 2023 10:39am Apply nickel-thick amount to wounds daily. docusate sodium 100 mg oral capsule (20 sources) Start: 01-01-2022 End: 09-05-2024 take 1 capsule by mouth twice daily docusate sodium (COLACE) 100 mg capsule Take 1 capsule by mouth twice daily. 01/01/2022 09/05/2024 Discontinued Comment on above: Take 1 capsule by [facility] twice daily. enteric contrast (will be provided with radiology test) (2 sources) Start: 07-26-2024 End: 07-27-2024 enteric contrast (will be provided with radiology test) For CT CHESTABD/PEL W IVCON Routine order Administer, As Directed One Time Only, via Oral, Rectal, both Oral and Rectal, Enteric Tube, Stoma or Indwelling Catheter, Enteric Contrast as designated per enteric contrast guidelines 1 each 07/26/2024 07/27/2024 Start: 07-26-2024 End: 07-27-2024 enteric contrast (will be pr ovided with radiology test) For CT CHESTABD/PEL W IVCON Routine order Administer, As Directed One Time Only, via Oral, Rectal, both Oral and Rectal, Enteric Tube, Stoma or Indwelling Catheter, Enteric Contrast as designated per enteric contrast guidelines 1 each 07/26/2024 07/27/2024 Active ferrous sulfate 325 mg oral tablet (9 sources) Start: 02-28-2023 End: 10-24-2023 take 1 tablet by mouth once daily Ferrous Sulfate 325 mg (65 mg iron) tablet Discontinued 325 mg PO DAILY February 28, 2023 1:00am October 24, 2023 8:28am fluticasone propionate 0.05 mg/actuat metered dose nasal spray (20 sources) Corticosteroid Start: 03-02-2022 End: 10-24-2023 Fluticasone Propionate 50 mcg/actuation spray,suspension Discontinued 2 NMA INTRANASAL AT BEDTIME March 02, 2022 1:00am October 24, 2023 8:28am congestion Start: 03-02-2022 Fluticasone Pr opionate Active 2 SPRAY INTRANASAL AT BEDTIME March 02, 2022 1:00am Fluticasone Propion-Salmeterol (20 sources) Corticosteroid, beta2-Adrenergic Agonist Start: 03-04-2022 End: 03-30-2022 Fluticasone Propion-Salmeterol (Advair Diskus) 250-50 mcg/dose blister with device Discontinued 1 NMA INHALATION TWICE A DAY 60 0 March 04, 2022 1:00am March 30, 2022 9:32am Start: 03-04-2022 End: 03-30-2022 Fluticasone Propion-Salmeter ol (Advair Diskus) 250-50 mcg/dose blister with device Discontinued 1 NMA INHALATION TWICE A DAY 60 March 04, 2022 1:00am March 30, 2022 9:32am Start: 03-04-2022 End: 03-30-2022 Fluticasone Propion-Salmeter ol (Advair Diskus) 250-50 mcg/dose blister with device Discontinued 1 INH INHALATION TWICE A DAY 60 March 04, 2022 1:00am March 30, 2022 9:32am Start: 03-04-2022 End: 03-30-2022 Fluticasone Propion-Salmeter ol (Advair Diskus) 250-50 mcg/dose blister with device Discontinued 1 INH INHALATION TWICE A DAY 60 March 04, 2022 12:00am March 30, 2022 8:32am Start: 03-04-2022 Fluticasone Pr opion-Salmeterol (Advair Diskus) 250-50 mcg/dose blister with device Active 1 INH INHALATION TWICE A DAY 60 March 04, 2022 12:00am furosemide 40 mg oral tablet (20 sources) Loop Diuretic Start: 05-17-2022 End: 01-27-2023 take 1 tablet by mouth once daily Furosemide 40 mg tablet Discontinued 40 mg PO DAILY 180 3 May 17, 2022 2:40pm January 27, 2023 11:43am Start: 03-23-2022 End: 05-17-2022 take 1 tablet by mouth twice daily Furosemide 40 mg tablet Discontinued 40 mg PO TWICE A DAY 180 3 March 23, 2022 3:48pm May 17, 2022 2:41pm Start: 03-19-2022 End: 03-23-2022 take 1 tablet by mouth once daily in the morning Furosemide 40 mg tablet Discontinued 40 mg PO EVERY MORNING March 19, 2022 1:00am March 23, 2022 3:39pm 12 hr guaiFENesin 1200 mg extended release oral tablet (20 sources) Start: 03-04-2022 End: 03-30-2022 take 1 tablet by mouth twice daily, then take 1 tablet by mouth every twelve hours Guaifenesin (Mucus Relief Er) 1,200 mg Tablet Extended Release 12hr Discontinued 1200 mg PO TWICE A DAY 0 0 March 04, 2022 1:00am March 30, 2022 9:33am Start: 03-14-2019 End: 09-12-2019 take 1 tablet by mouth every twelve hours as needed Guaifenesin 600 mg tablet extended release 12hr Discontinued 600 mg PO Q12H as needed March 14, 2019 1:00am September 12, 2019 11:40am ibuprofen 600 mg oral tablet (4 sources) Nonsteroidal Anti-inflammatory Drug Start: 06-27-2024 End: 08-30-2024 take 1 tablet by mouth every six hours as needed for pain Ibuprofen 600 mg tablet Discontinued 600 mg PO EVERY 6 HOURS as needed for pain 20 0 June 27, 2024 12:00am August 30, 2024 8:17am iv contrast (will be provided with radiology test) (20 sources) Start: 07-26-2024 End: 07-27-2024 iv contrast (will be provided with radiology test) CT Chest ABD/PEL-Inject, intravenously, once for 1 dose.No IV access, insert saline lock prior to the beginning of sedation, infusion, injection of imaging exam. Discontinue saline lock post exam. If Pt. has a central line or IVAD, may access for administration according to line specific nursing protocol. Once exam is complete flush line and de-access according to line specific nursing protocol in the CT contrast administration guidelines link. 1 each 07/26/2024 07/27/2024 Start: 07-26-2024 End: 07-27-2024 iv contrast (will be provide d with radiology test) CT Chest ABD/PEL-Inject, intravenously, once for 1 dose.No IV access, insert saline lock prior to the beginning of sedation, infusion, injection of imaging exam. Discontinue saline lock post exam. If Pt. has a central line or IVAD, may access for administration according to line specific nursing protocol. Once exam is complete flush line and de-access according to line specific nursing protocol in the CT contrast administration guidelines link. 1 each 07/26/2024 07/27/2024 Active Start: 10-05-2019 End: 09-05-2024 inject 1 dose intravenously once iv contrast (will be provided with radiology test) CT Cardiac - No IV access, insert saline lock prior to the sedation, infusion, injection for imaging exam. Discontinue saline lock post exam. If Pt. has a central line or IVAD, may access for administration according to line specific nursing protocol. Once exam is complete flush line and de-access according to line specific nursing protocol in the CT contrast administration guidelines link. 1 Each 10/05/2019 09/05/2024 Discontinued Start: 10-05-2019 inject 1 dose intravenously on ce iv contrast (will be provided with radiology test) CT Cardiac - No IV access, insert saline lock prior to the sedation, infusion, injection for imaging exam. Discontinue saline lock post exam. If Pt. has a central line or IVAD, may access for administration according to line specific nursing protocol. Once exam is complete flush line and de-access according to line specific nursing protocol in the CT contrast administration guidelines link. 1 Each 10/05/2019 Active Start: 10-05-2019 inject 1 dose intravenously on ce iv contrast (will be provided with radiology test) CT Cardiac - No IV access, insert saline lock prior to the sedation, infusion, injection for imaging exam. Discontinue saline lock post exam. If Pt. has a central line or IVAD, may access for administration according to line specific nursing protocol. Once exam is complete flush line and de-access according to line specific nursing protocol in the CT contrast administration guidelines link. 1 Each 0 10/05/2019 Suspended Start: 10-05-2019 inject 1 dose intravenously on ce iv contrast (will be provided with radiology test) CT Cardiac - No IV access, insert saline lock prior to the sedation, infusion, injection for imaging exam. Discontinue saline lock post exam. If Pt. has a central line or IVAD, may access for administration according to line specific nursing protocol. Once exam is complete flush line and de-access according to line specific nursing protocol in the CT contrast administration guidelines link. 1 Each 0 10/05/2019 Active Comment on above: CT Cardiac - No IV a ccess, insert saline lock prior to the sedation, infusion, injection for imaging exam. Discontinue saline lock post exam. If Pt. has a central line or IVAD, may access for administration according to line specific nursing protocol. Once exam is complete flush line and de-access according to line specific nursing protocol in the CT contrast administration guidelines link. levoFLOXacin 750 mg oral tablet (20 sources) Quinolone Antimicrobial Start: 03-04-19 End: 03-29-19 take 1 tablet by mouth every other day Levofloxacin 750 mg tablet Discontinued 750 mg PO Q48H 5 0 March 04, 2022 1:00am March 29, 2022 3:50pm Take every other day over the next 10 days magnesium oxide 400 mg oral tablet (20 sources) Start: 03-14-19 End: 09-12-19 take 1 tablet by mouth twice daily Magnesium Oxide 400 mg magnesium tablet Discontinued 400 mg PO TWICE A DAY March 14, 2019 1:00am September 12, 2019 11:40am metOLazone 2.5 mg oral tablet (20 sources) Thiazide-like Diuretic Start: 03-23-19 End: 03-29-19 take 1 tablet by mouth once daily Metolazone 2.5 mg tablet Discontinued 2.5 mg PO DAILY 1 March 23, 2022 1:00am March 29, 2022 5:46pm metoprolol tartrate 25 mg oral tablet (20 sources) beta-Adrenergic Jami Start: 01-15-20 End: 03-22-19 Metoprolol Tartrate 25 mg tablet Discontinued 12.5 mg PO TWICE A DAY 90 February 09, 2024 11:43am March 22, 2024 11:19am Start: 01-14-2023 take 12.5 mg by mout h twice daily Metoprolol Tartrate Active 12.5 MG PO TWICE A DAY January 14, 2023 1:00am Start: 03-14-2019 End: 03-30-2022 Metoprolol Tartrate 25 mg ta blet Discontinued 12.5 mg PO TWICE A DAY 90 October 16, 2021 2:41pm March 02, 2022 1:09pm Start: 03-14-2019 End: 03-30-2022 take 12.5 mg by mouth twice daily Metoprolol Tartrate Discontinued 12.5 MG PO TWICE A DAY October 16, 2021 2:41pm March 02, 2022 1:09pm Start: 02-20-2019 take 0.5 tablet by m outh every twelve hours metoprolol tartrate, short acting, (LOPRESSOR) 25 mg tablet Take 0.5 tablets by mouth every 12 hours. 30 tablet 1 02/20/2019 Active Comment on above: Take 0.5 tablets by mouth every 12 hours. Multivitamin preparation (20 sources) Start: 0 End: 0 take 1 tablet by mouth once daily in the morning Multivitamin Discontinued 1 TABLET PO EVERY MORNING March 14, 2019 12:00am September 12, 2019 10:41am Start: 03-14-2019 End: 09-12-2019 take 1 tablet by mouth once daily in the morning Multivitamin Discontinued 1 TABLET PO EVERY MORNING March 14, 2019 1:00am September 12, 2019 11:41am Multivitamin tablet (7 sources) Start: 03-14-2019 End: 09-12-2019 Multivitamin tablet Discontinued 1 {tbl} PO EVERY MORNING March 14, 2019 1:00am September 12, 2019 11:41am Tiotropium-Olodaterol (13 sources) Anticholinergic, beta2-Adrenergic Agonist Start: 08-24-2022 End: 01-27-2023 Tiotropium-Olodaterol (Stiolto Respimat) 2.5-2.5 mcg/actuation mist Discontinued 2 NMA INHALATION DAILY 3 August 24, 2022 12:00am January 27, 2023 12:17pm Start: 08-24-2022 End: 01-27-2023 Tiotropium-Olodaterol (Stiol to Respimat) 2.5-2.5 mcg/actuation mist Discontinued 2 NMA INHALATION DAILY August 24, 2022 12:00am January 27, 2023 12:17pm Start: 08-24-2022 End: 01-27-2023 Tiotropium-Olodaterol (Stiol to Respimat) 2.5-2.5 mcg/actuation mist Discontinued 2 INH INHALATION DAILY August 24, 2022 12:00am January 27, 2023 12:17pm Start: 08-24-2022 End: 01-27-2023 Tiotropium-Olodaterol (Stiol to Respimat) 2.5-2.5 mcg/actuation mist Discontinued 2 INH INHALATION DAILY August 23, 2022 11:00pm January 27, 2023 11:17am Start: 08-24-2022 Tiotropium-Olo daterol (Stiolto Respimat) 2.5-2.5 mcg/actuation mist Active 2 INH INHALATION DAILY August 23, 2022 11:00pm Start: 08-24-2022 Tiotropium-Olo daterol (Stiolto Respimat) 2.5-2.5 mcg/actuation mist Active 2 INH INHALATION DAILY August 24, 2022 12:00am omeprazole 40 mg delayed release oral capsule (20 sources) Proton Pump Inhibitor Start: 11-17-2018 End: 09-05-2024 take 1 capsule by mouth once daily Omeprazole 40 mg capsule Take 1 capsule by mouth once daily. 30 capsule 02/20/2019 09/05/2024 Discontinued Start: 07-09-2018 End: 11-01-2018 take 1 capsule by mouth once daily Omeprazole 20 MG capsule Discontinued 20 mg PO DAILY 30 July 09, 2018 12:00am November 01, 2018 8:23am Comment on above: Take 1 capsule by [facility] once daily. oxyCODONE hydrochloride 5 mg oral tablet (20 sources) Opioid Agonist Start: End: take 5-10 mg by mouth every four hours as needed for pain Oxycodone 5 mg Tablet Discontinued 5 - 10 mg PO EVERY 4 HOURS NEEDED as needed for Pain Score 4-10 20 5 0 January 18, 2024 February 02, 2024 9:32am Status post inguinal hernia repair Other specified postprocedural states Personal history of other diseases of the digestive system Start: 11-09-2023 End: 11-23-2023 take 5-10 mg by mouth every four hours as needed for pain Oxycodone 5 mg Tablet Discontinued 5 - 10 mg PO EVERY 4 HOURS NEEDED as needed for Pain Score 4-10 20 5 0 November 09, 2023 November 23, 2023 8:32am Bilateral inguinal hernia Start: 01-03-2022 End: 09-05-2024 oxyCODONE IR (ROXICODONE) 5 mg immediate release tablet Indications: Juxtarenal abdominal aortic aneurysm (AAA) without rupture Take 1-2 tablets by mouth every 8 hours as needed for up to 9 doses. 9 tablet 01/03/2022 12:00 PM EST 01/03/2022 09/05/2024 Discontinued Comment on above: Take 1-2 tablets by mouth every 8 hours as needed for up to 9 doses. potassium chloride 20 meq extended release oral tablet (20 sources) Start: 2022 End: 2022 take 1 tablet by mouth once daily Potassium Chloride 20 mEq tablet extended release Discontinued 20 meq PO DAILY 2 0 March 23, 2022 1:00am March 29, 2022 5:46pm predniSONE 10 mg oral tablet (20 sources) Start: 2022 End: 2022 Prednisone 10 mg tablet Discontinued 10 mg PO DAILY 40 0 March 04, 2022 1:00am March 29, 2022 3:53pm 4 tablets x 4 days, 3 tablets x 4 days, 2 tablets x 4 days, 1 tablet x 4 days spironolactone 25 mg oral tablet (20 sources) Aldosterone Antagonist Start: 2022 End: 2022 take 1 tablet by mouth once daily Spironolactone 25 mg tablet Discontinued 25 mg PO DAILY 90 3 March 19, 2022 1:00am May 17, 2022 2:41pm sulfamethoxazole 800 mg / trimethoprim 160 mg oral tablet (5 sources) Dihydrofolate Reductase Inhibitor Antibacterial, Sulfonamide Antimicrobial Start: 2024 End: 2024 take 1 tablet by mouth twice daily sulfamethoxazole-tri methoprim (BACTRIM DS) 800-160 mg per tablet Take 1 tablet by mouth two times a day for 7 days. 14 tablet 08/29/2024 09/05/2024 Discontinued tamsulosin hydrochloride 0.4 mg oral capsule (6 sources) alpha-Adrenergic Jami Start: 2024 End: 2024 take 1 capsule by mouth once daily Tamsulosin (Flomax) 0.4 mg capsule Discontinued 0.4 mg PO DAILY 14 14 0 May 17, 2024 12:00am June 13, 2024 10:18am Tiotropium Wheeler (20 sources) Anticholinergic Start: 2018 End: 2018 take 2.5 ug by inhalation once daily Tiotropium Wheeler (Spiriva Respimat) 2.5 mcg/actuation mist Discontinued 2 NMA INHALATION DAILY November 17, 2018 12:00am November 22, 2018 10:40am Start: 11-17-2018 End: 11-22-2018 take 1 puff(s) by inhalation once daily Tiotropium Wheeler (Spiriva Respimat) 2.5 mcg/actuation mist Discontinued 2 PUFF INHALATION DAILY November 16, 2018 11:00pm November 22, 2018 9:40am Start: 11-17-2018 End: 11-22-2018 take 1 puff(s) by inhalation once daily Tiotropium Wheeler (Spiriva Respimat) 2.5 mcg/actuation mist Discontinued 2 PUFF INHALATION DAILY November 17, 2018 12:00am November 22, 2018 10:40am Problems Active Problems Problem Classification Problem Date Documented Da te Episodic/Chronic Acute and unspecified renal failure (5 sources) Acute renal failure syndrome; Translations: [Acute kidney failure, unspecified] Onset: 09-06-2024 Episodic Aortic; peripheral; and visceral artery aneurysms (20 sources) Abdominal aortic aneurysm without rupture; Translations: [Abdominal aortic aneurysm, without rupture] Onset: 3 Resolved: 3 02-20-2019 Chronic Cancer of bladder (20 sources) Malignant tumor of urinary bladder; Translations: [Malignant neoplasm of bladder, unspecified] Onset: 5 07-31-2024 Chronic Chronic kidney disease (20 sources) Chronic renal insufficiency; Translations: [Chronic kidney disease, unspecified] Onset: 5 03-02-2022 Chronic Chronic obstructive pulmonary disease and bronchiectasis (20 sources) Centriacinar emphysema; Translations: [Centrilobular emphysema] Onset: 2 12-28-2021 Chronic Chronic ulcer of skin (20 sources) Chronic non-pressure ulcer of ankle extending to fat level; Translations: [Non-pressure chronic ulcer of unspecified ankle with fat layer exposed] 04-09-2022 Chronic Complication of device; implant or graft (20 sources) Arteriosclerosis of coronary artery bypass graft; Translations: [Atherosclerosis of coronary artery bypass graft(s) without angina pectoris] Onset: 9 12-28-2021 Chronic Coronary atherosclerosis and other heart disease (20 sources) Coronary atherosclerosis; Translations: [Atherosclerotic heart disease of lummi coronary artery with other forms of angina pectoris] Onset: 9 02-20-2019 Chronic Comment on above: CABG x 1: SVG-RCA 02/12/2019; Coronary atherosclerosis and other heart disease (14 sources) Presence of aortocoronary bypass graft; Translations: [Aortocoronary bypass status] Onset: 0 Episodic Diabetes mellitus with complications (1 source) Type 2 diabetes mellitus with diabetic chronic kidney disease; Translations: [Type 2 diabetes mellitus with diabetic chronic kidney disease] Onset: 5 Chronic Diabetes mellitus without complication (17 sources) Type 2 diabetes mellitus; Translations: [Type 2 diabetes mellitus without complications] Onset: 5 08-16-2024 Chronic Disorders of lipid metabolism (20 sources) Dyslipidemia; Translations: [Hyperlipidemia, unspecified] Onset: 9 02-06-2019 Chronic Essential hypertension (20 sources) Essential hypertension; Translations: [Essential (primary) hypertension] Onset: 9 02-20-2019 Chronic Comment on above: CONTROLLED ON MED Gastroduodenal ulcer (except hemorrhage) (20 sources) Gastric ulcer; Translations: [Gastric ulcer, unspecified as acute or chronic, without hemorrhage or perforation] Onset: 2 12-28-2021 Chronic Heart valve disorders (20 sources) Aortic valve stenosis; Translations: [Nonrheumatic aortic (valve) stenosis] Onset: 0 02-20-2019 Chronic Comment on above: AVR #23 Perimount 02/12/19 #23 Perimount 02/12/19 20 Heart valve disorders (20 sources) Heart murmur; Translations: [Cardiac murmur, unspecified] 07-07-2021 Episodic Occlusion or stenosis of precerebral arteries (20 sources) Bilateral stenosis of carotid arteries; Translations: [Occlusion and stenosis of bilateral carotid arteries] 07-07-2021 Chronic Comment on above: < 50% bilaterally pe r U/S 2020 Open wounds of extremities (20 sources) Wound ; Translations: [Chronic wound of extremity] 03-30-2022 Episodic Other circulatory disease (20 sources) Carotid bruit; Translations: [Other specified symptoms and signs involving the circulatory and respiratory systems] 07-07-2021 Episodic Other circulatory disease (1 source) Personal history of other diseases of the circulatory system; Translations: [Personal history of other diseases of the circulatory system] Onset: 5 Episodic Other diseases of bladder and urethra (1 source) Bladder disorder, unspecified; Translations: [Bladder disorder, unspecified] Onset: 5 Chronic Other diseases of kidney and ureters (20 sources) Kidney disease; Translations: [Disorder of kidney and ureter, unspecified] 01-06-2022 Episodic Other diseases of kidney and ureters (20 sources) Disorder of kidney and ureter, unspecified; Translations: [Unspecified disorder of kidney and ureter] Episodic Other diseases of kidney and ureters (3 sources) Hydronephrosis; Translations: [Other hydronephrosis] 08-21-2024 Episodic Other diseases of kidney and ureters (4 sources) Hydroureter; Translations: [Hydroureter] 09-06-2024 Episodic Other diseases of kidney and ureters (1 source) Hydroureter; Translations: [Hydroureter on left] Onset: 5 Episodic Other diseases of kidney and ureters (1 source) Other hydronephrosis; Translations: [Other hydronephrosis] Onset: 5 Episodic Other gastrointestinal disorders (1 source) Other ascites; Translations: [Other ascites] Episodic Other hereditary and degenerative nervous system conditions (20 sources) Intention tremor; Translations: [Other specified forms of tremor] 07-07-2021 Chronic Other lower respiratory disease (20 sources) Cough; Translations: [Cough] 03-14-2019 Episodic Other lower respiratory disease (20 sources) Hypoxia; Translations: [Hypoxemia] 03-02-2022 Episodic Other lower respiratory disease (20 sources) Hypoxemia; Translations: [Hypoxemia] 03-02-2022 Episodic Other nervous system disorders (20 sources) Carpal tunnel syndrome of right wrist; Translations: [Carpal tunnel syndrome, right upper limb] Onset: 3 06-08-2012 Chronic Pneumonia (except that caused by tuberculosis or sexually transmitted disease) (20 sources) Pneumonia; Translations: [Pneumonia, unspecified organism] 03-02-2022 Episodic Pulmonary heart disease (20 sources) Pulmonary arterial hypertension; Translations: [Secondary pulmonary arterial hypertension] 07-07-2021 Chronic Residual codes; unclassified (20 sources) Edema of lower extremity; Translations: [Localized edema] 03-23-2022 Episodic Residual codes; unclassified (20 sources) Localized edema; Translations: [Edema] 03-23-2022 Episodic Residual codes; unclassified (12 sources) History of repair of aneurysm of abdominal aorta; Translations: [Other specified postprocedural states] 12-15-2022 Episodic Residual codes; unclassified (2 sources) Other specified postprocedural states; Translations: [Other postprocedural status] Onset: 5 12-27-2022 Episodic Respiratory failure; insufficiency; arrest (adult) (20 sources) Acute respiratory failure; Translations: [Acute respiratory failure with hypoxia] 03-02-2022 Episodic Substance-related disorders (20 sources) Nicotine dependence; Translations: [Nicotine dependence, unspecified, uncomplicated] Onset: 0 02-20-2019 Chronic Unclassified (6 sources) Transition of care; Translations: [Transition of care performed with sharing of clinical summary] Onset: 0 02-20-2019 Unclassified (1 source) Status post abdominal aortic aneurysm (AAA) repair Unclassified (1 source) Z98.890 - Other specified postprocedural states,Z86.79 - Personal history of other diseases of the circulatory system,I71.4 - Abdominal aortic aneurysm, without rupture Urinary tract infections (6 sources) Acute hemorrhagic cystitis; Translations: [Acute cystitis with hematuria] 05-17-2024 Episodic Past or Other Problems Problem Classification Problem Date Documented Date Episodic/Chronic Abdominal hernia (20 sources) Umbilical hernia; Translations: [Umbilical hernia without obstruction or gangrene] Onset: 06-08-2012 06-08-2012 Episodic Abdominal pain (20 sources) Abdominal pain; Translations: [Unspecified abdominal pain] Onset: 05-23-2024 01-05-2022 Episodic Acute posthemorrhagic anemia (20 sources) Acute posthemorrhagic anemia; Translations: [Acute posthemorrhagic anemia] Onset: 02-12-2019 Resolved: 02-15-2019 02-15-2019 Episodic Administrative/social admission (20 sources) Discharge status; Translations: [Encounter for administrative examinations, unspecified] Onset: 02-09-2019 02-09-2019 Episodic Coagulation and hemorrhagic disorders (20 sources) Thrombocytopenic disorder; Translations: [Thrombocytopenia, unspecified] Onset: 02-14-2019 Resolved: 02-15-2019 02-15-2019 Chronic Deficiency and other anemia (20 sources) Anemia; Translations: [Anemia, unspecified] Onset: 02-14-2019 Resolved: 02-15-2019 09-12-2019 Episodic Diabetes mellitus without complication (20 sources) Metabolic stress hyperglycemia; Translations: [Hyperglycemia, unspecified] Onset: 02-12-2019 Resolved: 12-30-2021 12-30-2021 Episodic Fluid and electrolyte disorders (20 sources) Hypervolemia; Translations: [Fluid overload, unspecified] Onset: 02-14-2019 02-20-2019 Episodic Genitourinary symptoms and ill-defined conditions (20 sources) Blood in urine; Translations: [Hematuria, unspecified] Onset: 09-07-2012 09-07-2012 Episodic Immunizations and screening for infectious disease (20 sources) Blood group antibody titer - finding; Translations: [Other specified abnormal immunological findings in serum] Onset: 12-30-2021 12-30-2021 Episodic Neoplasms of unspecified nature or uncertain behavior (1 source) Neoplasm of uncertain behavior of bladder; Translations: [Neoplasm of uncertain behavior of bladder] Onset: 05-31-2024 Episodic Other nervous system disorders (20 sources) Postoperative pain ; Translations: [Other acute postprocedural pain] Onset: 12-29-2021 01-01-2022 Episodic Other screening for suspected conditions (not mental disorders or infectious disease) (1 source) Encounter for screening for malignant neoplasm of respiratory organs; Translations: [Encounter for screening for malignant neoplasm of respiratory organs] Onset: 03-12-2024 Episodic Pleurisy; pneumothorax; pulmonary collapse (20 sources) Atelectasis; Translations: [Atelectasis] Onset: 02-12-2019 02-20-2019 Episodic Residual codes; unclassified (20 sources) Transition of care; Translations: [Other specified health status] Onset: 02-15-2019 02-20-2019 Episodic Screening and history of mental health and substance abuse codes (20 sources) Tobacco use and exposure - finding; Translations: [Personal history of nicotine dependence] Onset: 09-07-2012 09-07-2012 Episodic Superficial injury; contusion (20 sources) Contusion of forearm; Translations: [Contusion of unspecified forearm, initial encounter] Onset: 08-09-2005 Resolved: 08-09-2005 06-05-2024 Episodic Unclassified (20 sources) No history of procedure; Translations: [No history of previous surgery] 03-14-2019 Results Test Name Value Interpretation Reference Range Facility CT ABD/PEL WO IVCONon 2024 CT ABD/PEL WO IVCON * * *Final Report* * * DATE OF EXAM: Sep 18 2024 [facility] ABD/PEL WO IVCON / PROCEDURE REASON: multiple diagnoses * * * * Physician Interpretation * * * * EXAMINATION: CT ABDOMEN AND PELVIS WITHOUT IV CONTRAST CLINICAL HISTORY: History of bladder cancer TECHNIQUE: Non-IV contrast imaging of the abdomen and pelvis was performed using standard technique, scanning from just above the dome of the diaphragm to the symphysis pubis. Unenhanced imaging is limited for the evaluation of some intra-abdominal and pelvic pathology. MQ: [id number] Contrast: IV: None CT Radiation dose: Integrated Dose-length product (DLP) for this visit = 455 mGy*cm. CT Dose Reduction Employed: Automated exposure control(AEC) and iterative recon COMPARISON: Sonogram of September 07, [address] of July 31, 2024 RESULT: Abdomen / Pelvis: Liver: Calcified hepatic granulomas. No discrete hepatic mass on unenhanced images. Biliary: No biliary dilation. Gallbladder is normal. Spleen: Multiple calcified splenic granulomas. Normal-sized spleen. Pancreas: No obvious mass or duct dilation Adrenals: No mass. Kidneys: Bilateral left slightly worse than right hydronephrosis. No renal calculi or contour altering renal mass. Mild bilateral left slightly worse than right hydroureter up to the level of the UV junctions. GI Tract: No bowel dilation. Colonic diverticulosis. No manifestations of acute diverticulitis. Appendix is not inflamed. Lymph Nodes: Multiple small subcentimeter-sized aortocaval lymph nodes are stable. The largest is an 8 mm lymph node along the posterior interaortocaval groove (5, 48) . Mesentery/peritoneum: No ascites. Retroperitoneum: No mass. Vasculature: Arterial atherosclerotic disease. Changes of infrarenal abdominal aortic repair are again seen, sac dimensions are stable. Stable bilateral common iliac artery aneurysms, right measures 2.5 cm and left measures 2.3 cm. Pelvis: Abnormal eccentric urinary bladder wall thickening involving the left urinary bladder extending into the trigone is again seen. The cyst not significantly changed given differences in bladder distention and unenhanced technique. Considerable pericystic stranding is once again noted. Bones/Soft Tissues: Bilateral inguinal hernia containing fat. No aggressive lytic or blastic bone lesions. Lower thorax: No nodule or mass. Localizer images: No additional findings. IMPRESSION: No significant change since July 31, 2024. Given differences in technique, the abnormal urinary bladder wall thickening and pericystic stranding are largely similar. Similar left greater than right hydronephrosis and hydroureter. Small retroperitoneal nodes are stable. Banquet Supervisor: PSCB Transcribe Date/Time: Sep 19 2024 9:51A Dictated by : DEANNA RAMIREZ MD This examination was interpreted and the report reviewed and electronically signed by: DEANNA RAMIREZ MD on Sep 19 2024 10:05AM EST [id number] Normal [facility] 09-12-2024 [place] [facility] Telephone (VAIBHAV) ALEJANDRAABELARDO Maria Ines ([id number]) 1950 M Date Time Provider Department 09/12/24 VIVIENNE GU During your visit today, we recorded the following information about you: Vivienne Gu RN 09/12/2024 11:11 AM Signed Completed chemo education. No antimeric on file, pended Zofran. C/o pain. Pain assessment completed. Patient is asking if there is something else besides tylenol he can take for pain? GENERALIZED PAIN Where is the pain? On my penis When did you first notice the pain? Probably about 9 weeks, from the time they run the first camera on me. Patient spoke to his urologist awhile ago and he stated the urologist prescribed antibiotics. Patient stated he doesn't have any burning it just aches. The pain was the same prior to the antibiotics. How intense is the pain right now (scale of 1-10)? 09/16 How do you describe the pain: aching Does the pain radiate anywhere? no Has the pain changed since it started? Not a whole lot Is the pain constant or intermittent? Constant. Even after tylenol there is still a dull ache. What makes it better? Pinching it What makes it worse? Urinating it hurts a little more when I urinate. Have you had this pain before? no What are you taking anything for the pain? Tylenol eases up the pain. Patient takes 500 mg, up to 6 tablets in a 24 hour period. Denies hematuria, fever, chills, or urinary urgency. Patient doesn't feel he always empties completely. Per OV notes from Dr. Arnold from 08/29: Dysuria- pt denies hematuria, says has dysuria and pain in penis with voiding, urine dip +, will start abx today (Bactrim and Pyridium sent in) Thank you. ANGELA Chen Paul A, DO 09/12/2024 12:46 PM Signed I sent in Rx for tramadol. 1 tablet every 12 hours due to renal function. He can continue Tylenol 1000 mg every 6 hours as well. DO Riccardo Valdez Amber, RN 09/12/2024 12:49 PM Signed Called patient, no answer, left a requesting a call back. ANGELA Chen Amber, RN 09/12/2024 2:39 PM Signed Patient informed of Dr. Rivers's response and he stated understanding. Vivienne Gu RN Allergies As of Date: 09/12/2024 (No Known Allergies) Date Reviewed: 09/06/2024 Reviewed by: Unruly Diaz RN - Fully Assessed Reason for Visit: It Professional - Other [3602] Cmt: Pain Primary Visit Diagnosis:Malignant neoplasm of overlapping sites of bladder (HCC) [C67.8] Other Visit Diagnosis:Malignant neoplasm of urinary bladder, unspecified site (HCC) [C67.9] Order(s):ondansetron (ZOFRAN) 8 mg tabletTake 1 tablet by mouth every 8 hours as needed (For chemotherapy induced nausea and vomiting.).Disp: 30 tabletRfl: 2 traMADol (ULTRAM) 50 mg tabletTake 1 tablet by mouth every 12 hours as needed for pain for up to 7 days.Disp: 14 tabletRfl: 0 Prescriptions as of 09/12/2024 - ondansetron (ZOFRAN) 8 mg tablet Take 1 tablet by mouth every 8 hours as needed (For chemotherapy induced nausea and vomiting.). - traMADol (ULTRAM) 50 mg tablet Take 1 tablet by mouth every 12 hours as needed for pain for up to 7 days. - phenazopyridine (PYRIDIUM) 100 mg tablet Take 100 mg by mouth three times a day. - cholecalciferol, vitamin D3, (VITAMIN D-3) 10 mcg (400 unit) cap Take 400 Units by mouth once daily. - amLODIPine (NORVASC) 5 mg tablet Take 5 mg by mouth once daily. - yisncfiprup-bayfdvlcx-w ilanter (TRELEGY ELLIPTA) 200-62.5-25 mcg inhalation powder Inhale 1 puff as instructed once daily. - acetaminophen (TYLENOL) 325 mg tablet Take 2 tablets by mouth every 4 hours. - rosuvastatin (CRESTOR) 5 mg tablet Take 5 mg by mouth once daily. - aspirin 81 mg chewable tablet Take 1 tablet by mouth once daily. - albuterol HFA (PROAIR HFA) 90 mcg/actuation inhaler Inhale 2 Puffs as instructed every 4 hours as needed for Wheezing/Shortness of Breath. - metoprolol tartrate, short acting, (LOPRESSOR) 25 mg tablet Take 0.5 tablets by mouth every 12 hours. Problem List As Of Date 09/12/2024 Noted Resolved CONTUSION OF FOREARM [S50.10XA] 08/09/2005 08/09/2005 Umbilical hernia without mention of obstruction*06/08/2012 Bilateral inguinal hernia [K40.20] 06/08/2012 Carpal tunnel syndrome of right wrist [G56.01] 06/08/2012 Aortic stenosis [I35.0] Smoking history [Z87.891] 09/07/2012 Hematuria [R31.9] 09/07/2012 Abdominal aortic aneurysm (HCC) [I71.40] 09/07/2012 10/27/2012 Coronary artery disease involving coronary bypa*02/06/2019 Essential hypertension [I10] 02/06/2019 Hyperlipidemia [E78.5] 02/06/2019 AAA (abdominal aortic aneurysm) without rupture*02/06/2019 Discharge planning issues [Z75.8] 02/09/2019 Preop testing [Z01.818] 02/09/2019 Atelectasis [J98.11] 02/12/2019 Acute blood loss anemia [D62] 02/12/2019 02/15/2019 Stress hyperglycemia [R73.9] 02/12/2019 12/30/2021 Fluid overload [E87.70] 02/14/2019 Thrombocytopenia (more content not included)... Normal [facility] CNPN Telephone (HEMAWS) ABELARDO IVORY ([id number]) 1950 M Date Time Provider Department 09/12/24 MAYRA CARMICHAEL During your visit today, we recorded the following information about you: Mayra Carmichael LISW 09/12/2024 2:15 PM Signed PSYCHOSOCIAL SCREENING ASSESSMENT Date of Service: September 12, 2024 Abelardo Ivory is a 74 year old male being seen for initial social work assessment. Diagnosis: Malignant neoplasm of urinary bladder, unspecified site New Primary Oncologist: Anthony Rivers DO Radiation Oncologist: Luigi Banks MD Goals of Care: Palliative care Today's visit includes: self/patient Family History of Cancer: Brother and Father (unable to recall types) SUPPORT NETWORK: Social Connections: Not on file Marital status: Parent(s): Mother is and Father is Child/Children: Yes. How many? 5 vehicle care specialist arrangements needed: No Siblings: 2 sisters and 1 brother Grandchild(kathleen): a bunch Home Health Provider: No Community Services: No Zeenat Identified: No Amish/Spirituality: Unknown Are these practices or beliefs that may affect or influence treatment? Unknown EMPLOYMENT/FINANCIAL/HE ALTH INSURANCE: Employment: Retired Income source: Social Security and Custodial Pension Insurance: Medicare with co-insurance Prescription coverage: Yes [facility] the [facility]? No Financial Distress: No : No FOOD INSECURITY Within the past year, have you worried about how you would buy or obtain food? No LIVING ARRANGEMENTS: Type: Apartment-independent Resides with: Alone Transportation Needs: Not on file FUNCTIONAL STATUS: Cognitive limitations: none Physical limitations: Has oxygen that he uses at night and when out in the heat/humidity. Language barrier: No Hearing Impaired: No Speech Impaired: No Visual Impairments: No Special considerations/accommod ations needed: Na HEALTH LITERACY: Do you have difficulty understanding medical instructions or other written materials you receive from you doctor or pharmacy? No Do have difficulty filling out medical forms by yourself? No The following interventions were put into place: NA MEDICATION ADHERENCE: Within the past 2 weeks, have you had difficulty remembering to take your medicine? No Within the past 2 weeks, did you ever miss taking your medications for reasons other than forgetting? No The following interventions were put into place: NA MENTAL HEALTH HISTORY: No History of combat/trauma: No Intimate Partner Violence: Not At Risk (08/21/2024) Safe at Home? Fear of Current or Ex-Partner: Not on file Emotionally Abused: Not on file Physically Abused: Not on file Sexually Abused: Not on file Safe at Home?: Yes Substance Use and Treatment History: reported current cigarette user - 1/2 ppd History of Abuse: No Issues with: Sleep:utilizes nighttime oxygen Eating:No Exercising: No Stress Management: No ADVANCE DIRECTIVES/LEGAL DOCUMENTS: Living Will: Yes Scanned into EPIC: Yes, 2018 Health Care Durable Power of Drum Operator: Yes Scanned into [employer]: No, pt reports he will get a copy of this document from [facility] at his upcoming appointment Guardianship: No Scanned into EPIC:NA Reasons Advanced Directives were not Addressed: NA Advance Care Planning Patient has a living will in chart, completed in 2019. Pt declines needing updated to that form. He reports he will bring in a copy of a recent HCPOA when he comes for a follow-up appointment. COPING STATUS: Stress: Not on file Coping Strengths: supportive relationships with immediate family, with friends, and with extended family successful managing past crises hopefulness self advocate strong problem-solving skills ability to plan able to follow direction consistently over time able to communicate effectively future oriented and able to identify goals Current affect/mood: appropriate and hopeful History of Loss: Yes, parents and Adjustment to diagnosis: reflecting understanding, responding appropriately, and accepting help BARRIERS/CARE CHALLENGES: NA Are barriers/care challenges identified likely to have an impact on the patient's quality of life during treatment? NA INTERVENTIONS/REFERRALS TO BE PROVIDED: Monitor patient response to treatment Communicate pertinent medical/psychosocial information to Cancer Center team Provide emotional support to patient/family Continue follow up as needed Resources and Referrals: Internal: Financial Navigator External: [facility] and Other [facility] CLINICAL IMPRESSION: Abelardo is a 74 year old male beginning chemotherapy and radiation treatment for bladder cancer. He is a , with 5 adult children, and lives alone. He reports 3 of his children live within 4-5 miles and h (more content not included)... Normal [facility] CNNURSEon 09-07-2024 CNNURSE Nurse Visit (RADTWS) ABELARDO IVORY ([id number]) 1950 M Date Time Provider Department 09/07/24 11:00 AM NURSE RADT [facility] RADTWS During your visit today, we recorded the following information about you: Unruly Diaz RN 09/07/2024 10:59 AM Signed Radiation Therapy - Patient Education Note PATIENT NAME: Abelardo Ivory PATIENT September 07, 2024 [facility] FACILITY/LOCATION: [place] READINESS TO LEARN Cognitive Ability: Alert and oriented Motivation to learn: Eager Interested Family Support: Unable to assess - Family not present Instruction provide to: Patient Patient learns best by: Multiple Methods Factors effecting learning: None Physical limitations effecting learning: None LEARNING RESPONSE Diagnosis: Pt simulated today for radiation therapy to multiple sites: bladder/prostate. Education Topic/Teaching Points: Radiation therapy, Side effects, and OTV: Method of instruction: Teach Back skin care Individual instruction Written instruction/Handouts Verbal instruction Patient /Family response: Patient verbalized understanding of radiation treatments, side effects, OTV, and transportation. Follow-up plan: Patient instructed to call with any further issues Contact information given. Supplemental material: Informational handouts on Department phone list, Bladder function, Diarrhea, Fatigue, and [place] instructions, XRT sheet and Aquaphor handout. Referral (recommendation): None, Pt denied need for social work, van service, and miller wood flour. Patient has an Onbody or Implanted device: No Signed by: Unruly Diaz RN Allergies As of Date: 09/07/2024 (No Known Allergies) Date Reviewed: 09/06/2024 Reviewed by: Unruly Diaz RN - Fully Assessed Reason for Visit: Patient Education [91] Primary Visit Diagnosis:Malignant neoplasm of trigone of urinary bladder (HCC) [C67.0] Prescriptions as of 09/07/2024 - phenazopyridine (PYRIDIUM) 100 mg tablet Take 100 mg by mouth three times a day. - cholecalciferol, vitamin D3, (VITAMIN D-3) 10 mcg (400 unit) cap Take 400 Units by mouth once daily. - amLODIPine (NORVASC) 5 mg tablet Take 5 mg by mouth once daily. - lrhkasbczhl-bwzjhoyhr-v ilanter (TRELEGY ELLIPTA) 200-62.5-25 mcg inhalation powder Inhale 1 puff as instructed once daily. - acetaminophen (TYLENOL) 325 mg tablet Take 2 tablets by mouth every 4 hours. - rosuvastatin (CRESTOR) 5 mg tablet Take 5 mg by mouth once daily. - aspirin 81 mg chewable tablet Take 1 tablet by mouth once daily. - albuterol HFA (PROAIR HFA) 90 mcg/actuation inhaler Inhale 2 Puffs as instructed every 4 hours as needed for Wheezing/Shortness of Breath. - metoprolol tartrate, short acting, (LOPRESSOR) 25 mg tablet Take 0.5 tablets by mouth every 12 hours. Problem List As Of Date 09/07/2024 Noted Resolved CONTUSION OF FOREARM [S50.10XA] 08/09/2005 08/09/2005 Umbilical hernia without mention of obstruction*06/08/2012 Bilateral inguinal hernia [K40.20] 06/08/2012 Carpal tunnel syndrome of right wrist [G56.01] 06/08/2012 Aortic stenosis [I35.0] Smoking history [Z87.891] 09/07/2012 Hematuria [R31.9] 09/07/2012 Abdominal aortic aneurysm (HCC) [I71.40] 09/07/2012 10/27/2012 Coronary artery disease involving coronary bypa*02/06/2019 Essential hypertension [I10] 02/06/2019 Hyperlipidemia [E78.5] 02/06/2019 AAA (abdominal aortic aneurysm) without rupture*02/06/2019 Discharge planning issues [Z75.8] 02/09/2019 Preop testing [Z01.818] 02/09/2019 Atelectasis [J98.11] 02/12/2019 Acute blood loss anemia [D62] 02/12/2019 02/15/2019 Stress hyperglycemia [R73.9] 02/12/2019 12/30/2021 Fluid overload [E87.70] 02/14/2019 Thrombocytopenia (HCC) [D69.6] 02/14/2019 02/15/2019 Postoperative anemia [D64.9] 02/14/2019 02/15/2019 Transition of care performed with sharing of cl*02/15/2019 Current smoker [F17.200] 02/17/2019 Juxtarenal ruptured abdominal aortic aneurysm (*12/28/2021 Hx of CABG [Z95.1] 12/28/2021 Centrilobular emphysema (HCC) [J43.2] 12/28/2021 PUD (peptic ulcer disease) [K27.9] 12/28/2021 Postoperative pain [G89.18] 12/29/2021 Red blood cell antibody positive [R76.8] 12/30/2021 Type 2 diabetes mellitus without complication, *08/16/2024 CKD (chronic kidney disease) [N18.9] 08/16/2024 Malignant neoplasm of urinary bladder (HCC) [C6*09/05/2024 Encounter Status:Closed by UNRULY DIAZ on 09/07/24 Normal [facility] US KIDNEY/BLADDERon 09-08-19 US KIDNEY/BLADDER * * *Final Report* * * DATE OF EXAM: Sep 07 2024 12:20PM U 1055 - US KIDNEY/BLADDER / PROCEDURE REASON: multiple diagnoses * * * * Physician Interpretation * * * * EXAMINATION: RENAL ULTRASOUND CLINICAL HISTORY: 74 years old Male with Malignant neoplasm of overlapping sites of bladder. ROSALIE (acute kidney injury). Hydroureter on left. TECHNIQUE: Sonography of the kidneys and urinary bladder was performed. Images were obtained and stored in a permanent archive. MQ: UR_1 COMPARISON: CT abdomen pelvis 07/31/2024 RESULT: Right Kidney: -Renal length: 9.3 cm -Parenchyma: Normal parenchymal echogenicity. Normal parenchymal thickness. -Collecting system: Mild hydronephrosis -Calculus: No echogenic, shadowing calculus. -Lesion: None. Left Kidney: -Renal length: 11.1 cm -Parenchyma: Normal parenchymal echogenicity. Normal parenchymal thickness. -Collecting system: Moderate hydronephrosis -Calculus: No echogenic, shadowing calculus. -Lesion: None. Bladder: Incompletely distended with irregular wall thickening secondary to known neoplasm. IMPRESSION: Mild RIGHT and moderate LEFT hydronephrosis. 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 Banquet Supervisor: JESUS ALBERTO Transcribe Date/Time: Sep 07 2024 12:38P Dictated by : HAYLEE STARKEY, DO This examination was interpreted and the report reviewed and electronically signed by: HAYLEE STARKEY DO on Sep 07 2024 12:42PM EST [id number] Normal [facility] US Kidney - bilateral and Ur inary bladderon 09-07-2024 Radiology Study observation (narrative) Hank spann [facility] IMPRESSION: Mild RIGHT and moderate LEFT hydronephrosis. 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 Banquet Supervisor: JESUS ALBERTO Transcribe Date/Time: Sep 07 2024 12:38P Dictated by : HAYLEE STARKEY DO This examination was interpreted and the report reviewed and electronically signed by: HAYLEE STARKEY DO on Sep 07 2024 12:42PM EST DIVISION OF RADIOLOGY * * *Final Report* * * DATE OF EXAM: Sep 07 2024 12:20PM WRU 1055 - US KIDNEY/BLADDER / PROCEDURE REASON: multiple diagnoses * * * * Physician Interpretation * * * * EXAMINATION: RENAL ULTRASOUND CLINICAL HISTORY: 74 years old Male with Malignant neoplasm of overlapping sites of bladder. ROSALIE (acute kidney injury). Hydroureter on left. TECHNIQUE: Sonography of the kidneys and urinary bladder was performed. Images were obtained and stored in a permanent archive. MQ: UR_1 COMPARISON: CT abdomen pelvis 07/31/2024 RESULT: Right Kidney: -Renal length: 9.3 cm -Parenchyma: Normal parenchymal echogenicity. Normal parenchymal thickness. -Collecting system: Mild hydronephrosis -Calculus: No echogenic, shadowing calculus. -Lesion: None. Left Kidney: -Renal length: 11.1 cm -Parenchyma: Normal parenchymal echogenicity. Normal parenchymal thickness. -Collecting system: Moderate hydronephrosis -Calculus: No echogenic, shadowing calculus. -Lesion: None. Bladder: Incompletely distended with irregular wall thickening secondary to known neoplasm. DIVISION OF RADIOLOGY Provider, Monisha Dane [facility] - 09/07/2024 * * *Final Report* * * DATE OF EXAM: Sep 07 2024 12:20PM WRU 1055 - US KIDNEY/BLADDER / PROCEDURE REASON: multiple diagnoses * * * * Physician Interpretation * * * * EXAMINATION: RENAL ULTRASOUND CLINICAL HISTORY: 74 years old Male with Malignant neoplasm of overlapping sites of bladder. ROSALIE (acute kidney injury). Hydroureter on left. TECHNIQUE: Sonography of the kidneys and urinary bladder was performed. Images were obtained and stored in a permanent archive. MQ: UR_1 COMPARISON: CT abdomen pelvis 07/31/2024 RESULT: Right Kidney: -Renal length: 9.3 cm -Parenchyma: Normal parenchymal echogenicity. Normal parenchymal thickness. -Collecting system: Mild hydronephrosis -Calculus: No echogenic, shadowing calculus. -Lesion: None. Left Kidney: -Renal length: 11.1 cm -Parenchyma: Normal parenchymal echogenicity. Normal parenchymal thickness. -Collecting system: Moderate hydronephrosis -Calculus: No echogenic, shadowing calculus. -Lesion: None. Bladder: Incompletely distended with irregular wall thickening secondary to known neoplasm. IMPRESSION IMPRESSION: Mild RIGHT and moderate LEFT hydronephrosis. 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 Banquet Supervisor: JESUS ALBERTO Transcribe Date/Time: Sep 07 2024 12:38P Dictated by : HAYLEE STARKEY DO This examination was interpreted and the report reviewed and electronically signed by: HAYLEE STARKEY DO on Sep 07 2024 12:42PM [facility] US Kidney - bilateral and Ur inary bladderOrdered By: Amina Provider on 09-07-2024 [facility] CNOVon 09-06-2024 CNOV Office Visit (RADTWS ) ABELARDO IVORY ([id number]) 1950 M Date Time Provider Department 09/06/24 10:30 AM LUIGI BANKS RADTWS During your visit today, we recorded the following information about you: Temperature Pulse Respiration Blood pressure 97.7 degrees 74/minute 15/minute 136/63 Weight 69.2 kg Unruly Diaz RN 09/14/2024 11:12 AM Signed Radiation Therapy - Nursing Note (Consult) PATIENT NAME: Abelardo Ivory PATIENT September 06, 2024 [facility] FACILITY/LOCATION: [place] Chief Complaint: consult Reason for visit: Consult. Referring physician: Internal provider Dr Rivers Subjective Data: see pain assessment Additional Data Do you want to see a Artists' Booking Representative? No Are you interested in information about fertility? No Status: Patient is male Stress Scale: On a scale of 0 to 10, what number best describes how much distress you have experienced in the past week?(0 being no distress and 10 being extreme distress) 3 Social work notified: no SIGNED by: ANGELA Maloney Daesung, MD 09/14/2024 11:12 AM Signed Radiation Oncology - New Patient/Consult Note PATIENT NAME: Abelardo Ivory PATIENT REQUESTING PROVIDER: Dr. 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 HPI: 74 year old male who presents with above diagnosis, for an opinion regarding the role of radiation therapy in the management of the patient's disease. Final recommendations will be communicated back to the requesting physician by way of the shared medical record, or letter to requesting physician via US mail. 74 year old man with 40 pack-year history of smoking presented with gross hematuria in June. CT A/P on 06/21/24 showed bladder wall thickening along the base of the bladder worse on the leftside and left hydronephrosis. No retroperitoneal lymph nodes are seen. He underwent cystoscopy and TURBT on 06/27/24. There was papillary tumor looking around the bladder neck. He had maximum TURBT and the mass measured about 6 cm x 5 cm x 7 cm in total. Pathology showed high grade invasive urothelial carcinoma involving muscularis propria. CT C/A/P on 07/31/24 showed Wall thickening along bladder trigone compatible with urothelial cancer. No abdominopelvic metastasis. There was no definite metastasis in the chest. He had cystoscopy on 08/21/24. There was large amount of necrotic tissue starting at the bladder involving the majority of the trigone. No left ureteral orifice was able to be visualized. ALLERGIES No Known Allergies Current Outpatient Medications on File Prior to Visit Medication Sig phenazopyridine (PYRIDIUM) 100 mg tablet Take 100 mg by mouth three times a day. cholecalciferol, vitamin D3, (VITAMIN D-3) 10 mcg (400 unit) cap Take 400 Units by mouth once daily. amLODIPine (NORVASC) 5 mg tablet Take 5 mg by mouth once daily. hmukgbxadia-wbripproc-m ilanter (TRELEGY ELLIPTA) 200-62.5-25 mcg inhalation powder Inhale 1 puff as instructed once daily. acetaminophen (TYLENOL) 325 mg tablet Take 2 tablets by mouth every 4 hours. rosuvastatin (CRESTOR) 5 mg tablet Take 5 mg by mouth once daily. aspirin 81 mg chewable tablet Take 1 tablet by mouth once daily. albuterol HFA (PROAIR HFA) 90 mcg/actuation inhaler Inhale 2 Puffs as instructed every 4 hours as needed for Wheezing/Shortness of Breath. metoprolol tartrate, short acting, (LOPRESSOR) 25 mg tablet Take 0.5 tablets by mouth every 12 hours. No current facility-administered medications on file prior to visit. 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 No PAST SURGICAL HISTORY Procedure Laterality Date CABG (1) VEIN GRAFT AND ARTERIAL GRAFT 02/12/2019 AVR and CABG x1 PAST SURGICAL HISTORY OF cyst removed from back PAST SURGICAL HISTORY OF 12/28/2021 AAA repair - Stable status post graft repair of abdominal aortic aneurysm. PAST SURGICAL HISTORY OF 2024 Hernia repair PAST SURGICAL HISTORY OF 06/27/2024 Biopsy bladder REMV CATARACT EXTRACAP,INSERT LENS Left REMV CATARACT EXTRACAP,INSERT LENS Right FAMILY HISTORY Problem Relation Age of Onset Diabetes Mother Emphysema Mother Asthma S (more content not included)... Normal [facility] Ale 09-06-2024 VICTORIANO Telephone (UROLAE) ABELARDO IVORY ([id number]) 1950 M Date Time Provider Department 09/06/24 STACY GAUTHIER During your visit today, we recorded the following information about you: Stacy Gauthier MD 09/06/2024 7:[address] Rivers ordered a left perc tube placement- can you find out where he's having it done, want to add on left antegrade stent placement at same time- thx MD Avni Rosales Margaret 09/06/2024 9:12 AM Signed Spoke with Dr. Rivers office and they stated for you to send message to dr. Rivers and have him add it on to his order and they will be sure it gets scheduled. Earnestine Bass Allergies As of Date: 09/06/2024 (No Known Allergies) Date Reviewed: 09/05/2024 Reviewed by: Paramjit Lugo MA - Fully Assessed Reason for Visit: Orders [681] Prescriptions as of 09/06/2024 - phenazopyridine (PYRIDIUM) 100 mg tablet Take 100 mg by mouth three times a day. - cholecalciferol, vitamin D3, (VITAMIN D-3) 10 mcg (400 unit) cap Take 400 Units by mouth once daily. - amLODIPine (NORVASC) 5 mg tablet Take 5 mg by mouth once daily. - brlmhtkwglq-iiouuyzyi-j ilanter (TRELEGY ELLIPTA) 200-62.5-25 mcg inhalation powder Inhale 1 puff as instructed once daily. - acetaminophen (TYLENOL) 325 mg tablet Take 2 tablets by mouth every 4 hours. - rosuvastatin (CRESTOR) 5 mg tablet Take 5 mg by mouth once daily. - aspirin 81 mg chewable tablet Take 1 tablet by mouth once daily. - albuterol HFA (PROAIR HFA) 90 mcg/actuation inhaler Inhale 2 Puffs as instructed every 4 hours as needed for Wheezing/Shortness of Breath. - metoprolol tartrate, short acting, (LOPRESSOR) 25 mg tablet Take 0.5 tablets by mouth every 12 hours. Problem List As Of Date 09/06/2024 Noted Resolved CONTUSION OF FOREARM [S50.10XA] 08/09/2005 08/09/2005 Umbilical hernia without mention of obstruction*06/08/2012 Bilateral inguinal hernia [K40.20] 06/08/2012 Carpal tunnel syndrome of right wrist [G56.01] 06/08/2012 Aortic stenosis [I35.0] Smoking history [Z87.891] 09/07/2012 Hematuria [R31.9] 09/07/2012 Abdominal aortic aneurysm (HCC) [I71.40] 09/07/2012 10/27/2012 Coronary artery disease involving coronary bypa*02/06/2019 Essential hypertension [I10] 02/06/2019 Hyperlipidemia [E78.5] 02/06/2019 AAA (abdominal aortic aneurysm) without rupture*02/06/2019 Discharge planning issues [Z75.8] 02/09/2019 Preop testing [Z01.818] 02/09/2019 Atelectasis [J98.11] 02/12/2019 Acute blood loss anemia [D62] 02/12/2019 02/15/2019 Stress hyperglycemia [R73.9] 02/12/2019 12/30/2021 Fluid overload [E87.70] 02/14/2019 Thrombocytopenia (HCC) [D69.6] 02/14/2019 02/15/2019 Postoperative anemia [D64.9] 02/14/2019 02/15/2019 Transition of care performed with sharing of cl*02/15/2019 Current smoker [F17.200] 02/17/2019 Juxtarenal ruptured abdominal aortic aneurysm (*12/28/2021 Hx of CABG [Z95.1] 12/28/2021 Centrilobular emphysema (HCC) [J43.2] 12/28/2021 PUD (peptic ulcer disease) [K27.9] 12/28/2021 Postoperative pain [G89.18] 12/29/2021 Red blood cell antibody positive [R76.8] 12/30/2021 Type 2 diabetes mellitus without complication, *08/16/2024 CKD (chronic kidney disease) [N18.9] 08/16/2024 Malignant neoplasm of urinary bladder (HCC) [C6*09/05/2024 Encounter Status:Closed by STACY GAUTHIER on 09/06/24 Normal [facility] CBC W Auto Differential pane l (Bld)on 09-05-2024 Basophils (Bld) [#/Vol] 0.05 10*3/uL [facility] Basophils/100 WBC (Bld) 0.7 % [facility] Differential cell count method Nom (Bld) Auto [facility] Eosinophils (Bld) [#/Vol] 0.23 10*3/uL [facility] Eosinophils/100 WBC (Bld) 3.1 % [facility] Erythrocyte distribution width (RBC) [Ratio] 13.4 % 11.5 - 15.0 % [facility] Hematocrit (Bld) [Volume fraction] 40 % 39.0 - 51.0 % [facility] Hemoglobin (Bld) [Mass/Vol] 12.7 g/dL Low 13.0 - 17.0 g/dL [facility] Immature granulocytes (Bld) [#/Vol] [facility] Immature granulocytes/100 WBC (Bld) 0.3 % [facility] Interpretation and review of laboratory results Abnormal [facility] Lymphocytes (Bld) [#/Vol] 2.43 10*3/uL [facility] Lymphocytes/100 WBC (Bld) 32.7 % [facility] MCH (RBC) [Entitic mass] 29.9 pg 26.0 - 34.0 pg [facility] MCHC (RBC) [Mass/Vol] 31.8 g/dL 30.5 - 36.0 g/dL [facility] MCV (RBC) [Entitic vol] 94.1 fL 80.0 - 100.0 fL [facility] Monocytes (Bld) [#/Vol] 0.56 10*3/uL [facility] Monocytes/100 WBC (Bld) 7.5 % [facility] Neutrophils (Bld) [#/Vol] 4.15 10*3/uL [facility] Neutrophils/100 WBC (Bld) 55.7 % [facility] Nucleated RBC (Bld) [#/Vol] [facility] Nucleated RBC/100 WBC (Bld) [Ratio] 0 % /100 WBC [facility] Platelet mean volume (Bld) [Entitic vol] 8.3 fL Low 9.0 - 12.7 fL [facility] Platelets (Bld) [#/Vol] 207 10*3/uL [facility] RBC (Bld) [#/Vol] 4.25 10*6/uL 4.20 - 6.0 0 m/uL [facility] WBC (Bld) [#/Vol] 7.44 10*3/uL [facility] Basophils (Bld) [#/Vol] 0.05 10*3/uL Normal <0.11 [facility] Comment on above: Order Comment: Speci men Type: BLOOD SPECIMEN Ordering Facility: [facility] Address: [address] [place] [address] Performed By: #### 2 4323-8 #### [facility] CLIA [id number] [address] [place] [address] [place] Basophils/100 WBC (Bld) 0.7 % Normal C [facility] Comment on above: Order Comment: Speci men Type: BLOOD SPECIMEN Ordering Facility: [facility] Address: [address] [place] [address] Performed By: #### 2 4323-8 #### [facility] CLIA [id number] [address] [place] [address] [place] Differential cell count method Nom (Bld) Auto Normal [facility] Comment on above: Order Comment: Speci men Type: BLOOD SPECIMEN Ordering Facility: [facility] Address: [address] [place] [address] Performed By: #### 2 4323-8 #### [facility] CLIA [id number] [address] [place] [address] [place] Eosinophils (Bld) [#/Vol] 0.23 10*3/uL Normal <0.46 [facility] Comment on above: Order Comment: Speci men Type: BLOOD SPECIMEN Ordering Facility: [facility] Address: [address] [place] [address] Performed By: #### 2 4323-8 #### [facility] CLIA [id number] [address] [place] [address] [place] Eosinophils/100 WBC (Bld) 3.1 % Normal [facility] Comment on above: Order Comment: Speci men Type: BLOOD SPECIMEN Ordering Facility: [facility] Address: [address] [place] [address] Performed By: #### 2 4323-8 #### [facility] CLIA [id number] [address] [place] [address] [place] Erythrocyte distribution width (RBC) [Ratio] 13.4 % Normal 11.5-15.0 [facility] Comment on above: Order Comment: Speci men Type: BLOOD SPECIMEN Ordering Facility: [facility] Address: [address] [place] [address] Performed By: #### 2 4323-8 #### [facility] CLIA [id number] [address] [place] [address] [place] Hematocrit (Bld) [Volume fraction] 40.0 % Normal 39.0-51.0 [facility] Comment on above: Order Comment: Speci men Type: BLOOD SPECIMEN Ordering Facility: [facility] Address: [address] [place] [address] Performed By: #### 2 4323-8 #### [facility] CLIA [id number] [address] [place] [address] [place] Hemoglobin (Bld) [Mass/Vol] 12.7 g/dL Low 13.0-17.0 [facility] Comment on above: Order Comment: Speci men Type: BLOOD SPECIMEN Ordering Facility: [facility] Address: [address] [place] [address] Performed By: #### 2 4323-8 #### [facility] CLIA [id number] [address] [place] [address] [place] Immature granulocytes (Bld) [#/Vol] 10*3/uL Normal <0.10 [facility] Comment on above: Order Comment: Speci men Type: BLOOD SPECIMEN Ordering Facility: [facility] Address: [address] [place] [address] Performed By: #### 2 4323-8 #### [facility] CLIA [id number] [address] [place] [address] [place] Immature granulocytes/100 WBC (Bld) 0.3 % Normal [facility] Comment on above: Order Comment: Speci men Type: BLOOD SPECIMEN Ordering Facility: [facility] Address: [address] [place] [address] Performed By: #### 2 4323-8 #### [facility] CLIA [id number] [address] [place] [address] [place] Lymphocytes (Bld) [#/Vol] 2.43 10*3/uL Normal 1.00-4.00 [facility] Comment on above: Order Comment: Speci men Type: BLOOD SPECIMEN Ordering Facility: [facility] Address: [address] [place] [address] Performed By: #### 2 4323-8 #### [facility] CLIA [id number] [address] [place] [address] [place] Lymphocytes/100 WBC (Bld) 32.7 % Normal [facility] Comment on above: Order Comment: Speci men Type: BLOOD SPECIMEN Ordering Facility: [facility] Address: [address] [place] [address] Performed By: #### 2 4323-8 #### [facility] CLIA [id number] [address] [place] [address] [place] MCH (RBC) [Entitic mass] 29.9 pg Normal 26.0-34.0 [facility] Comment on above: Order Comment: Speci men Type: BLOOD SPECIMEN Ordering Facility: [facility] Address: [address] [place] [address] Performed By: #### 2 4323-8 #### [facility] CLIA [id number] [address] [place] [address] [place] MCHC (RBC) [Mass/Vol] 31.8 g/dL Normal 30.5-36.0 [facility] Comment on above: Order Comment: Speci men Type: BLOOD SPECIMEN Ordering Facility: [facility] Address: [address] [place] [address] Performed By: #### 2 4323-8 #### [facility] CLIA [id number] [address] [place] [address] [place] MCV (RBC) [Entitic vol] 94.1 fL Normal 80.0-100.0 [facility] Comment on above: Order Comment: Speci men Type: BLOOD SPECIMEN Ordering Facility: [facility] Address: [address] [place] [address] Performed By: #### 2 4323-8 #### [facility] CLIA [id number] [address] [place] [address] [place] Monocytes (Bld) [#/Vol] 0.56 10*3/uL Normal <0.87 [facility] Comment on above: Order Comment: Speci men Type: BLOOD SPECIMEN Ordering Facility: [facility] Address: [address] [place] [address] Performed By: #### 2 4323-8 #### [facility] CLIA [id number] [address] [place] [address] [place] Monocytes/100 WBC (Bld) 7.5 % Normal C [facility] Comment on above: Order Comment: Speci men Type: BLOOD SPECIMEN Ordering Facility: [facility] Address: [address] [place] [address] Performed By: #### 2 4323-8 #### [facility] CLIA [id number] [address] [place] [address] [place] Neutrophils (Bld) [#/Vol] 4.15 10*3/uL Normal 1.45-7.50 [facility] Comment on above: Order Comment: Speci men Type: BLOOD SPECIMEN Ordering Facility: [facility] Address: [address] [place] [address] Performed By: #### 2 4323-8 #### [facility] CLIA [id number] [address] [place] [address] [place] Neutrophils/100 WBC (Bld) 55.7 % Normal [facility] Comment on above: Order Comment: Speci men Type: BLOOD SPECIMEN Ordering Facility: [facility] Address: [address] [place] [address] Performed By: #### 2 4323-8 #### [facility] CLIA [id number] [address] [place] [address] [place] Nucleated RBC (Bld) [#/Vol] 10*3/uL Normal <0.01 [facility] Comment on above: Order Comment: Speci men Type: BLOOD SPECIMEN Ordering Facility: [facility] Address: [address] [place] [address] Performed By: #### 2 4323-8 #### [facility] CLIA [id number] [address] [place] [address] [place] Nucleated RBC/100 WBC (Bld) [Ratio] 0.0 /100 WBC Normal [facility] Comment on above: Order Comment: Speci men Type: BLOOD SPECIMEN Ordering Facility: [facility] Address: [address] [place] [address] Performed By: #### 2 4323-8 #### [facility] CLIA [id number] [address] [place] [address] [place] Platelet mean volume (Bld) [Entitic vol] 8.3 fL Low 9.0-12.7 [facility] Comment on above: Order Comment: Speci men Type: BLOOD SPECIMEN Ordering Facility: [facility] Address: [address] [place] [address] Performed By: #### 2 4323-8 #### [facility] CLIA [id number] [address] [place] [address] [facility] [place] Platelets (Bld) [#/Vol] 207 10*3/uL Normal 150-400 [facility] Comment on above: Order Comment: Speci men Type: BLOOD SPECIMEN Ordering Facility: [facility] Address: [address] [place] [address] Performed By: #### 2 4323-8 #### [facility] CLIA [id number] [address] [place] [address] [place] RBC (Bld) [#/Vol] 4.25 10*6/uL Normal 4.20-6.00 [facility] Comment on above: Order Comment: Speci men Type: BLOOD SPECIMEN Ordering Facility: [facility] Address: [address] [place] [address] Performed By: #### 2 4323-8 #### [facility] CLIA [id number] [address] [place] [address] [place] WBC (Bld) [#/Vol] 7.44 10*3/uL Normal 3.70-11.00 [facility] Comment on above: Order Comment: Speci men Type: BLOOD SPECIMEN Ordering Facility: [facility] Address: [address] [place] [address] Performed By: #### 2 4323-8 #### [facility] CLIA [id number] [address] [place] [address] OF [place] CNOVSPon 09-05-2024 CNOVSP Visit (SP) Office (HEMAWS) ABELARDO IVORY ([id number]) 1950 M Date Time Provider Department 09/05/24 2:00 PM ANTHONY RIVERS During your visit today, we recorded the following information about you: Temperature Pulse Blood pressure Weight 97.7 degrees 75/minute 145/69 69.2 kg Height 1.69 m Anthony Rivers, DO 09/05/2024 5:01 PM Signed Patient self-referred for muscle invasive bladder cancer. HPI: The patient is a 74-year-old male with a past medical history as outlined below. Developed gross hematuria and noticed debris in urine. Saw Dr. Mcclendon. Had TURBT with chemo flush. Path below. Referred to [facility] b/c patient declined cystectomy. Per Dr. Christianson's note dated 07/26/2024, June 2024, began experiencing flank pain, and hematuria, [place] revealed a bladder tumor, and a CT scan with contrast was performed. The urologist attempted resection but was unable to remove the entire tumor. He underwent aortic valve replacement and coronary artery bypass grafting in 2019, during which a blocked artery was addressed. AAA repair 2021. TURBT 06/27/24- HG MIBC CT A/P: diffuse circumferential thickening with soft tissue stranding. Imaging - no metastases on CT A/P Smokes 1/2 ppd, in the past 1-1.5 ppd since age 15 years Pathology from [facility] reviewed at [facility]: A. Urinary bladder, transurethral resection: - Invasive urothelial carcinoma, high-grade, involving muscularis propria. CT chest 07/31/2024: IMPRESSION: 1. Stable nodules in left lung measuring up to 5 mm, these are indeterminate, recommend continued attention on follow-up. No new lung nodules or consolidations have developed. 2. Stable borderline enlarged lymph nodes in the mediastinum, probably reactive or related to a granulomatous process such as histoplasmosis. CT abdomen/pelvis 07/31/2024: IMPRESSION: 1. Stable nodules in left lung measuring up to 5 mm, these are indeterminate, recommend continued attention on follow-up. No new lung nodules or consolidations have developed. 2. Stable borderline enlarged lymph nodes in the mediastinum, probably reactive or related to a granulomatous process such as histoplasmosis. Underwent cystoscopy on 08/21. Be cystoscopy demonstrated large amount necrotic tissue starting at the bladder involving the majority of the trigone. The left ureteral orifice was not able to be visualized. Retrograde pyelogram could not be done. Urine stained from pyridium. Still having dysuria and pain end of penis. Normal appetite. Has oxygen that he uses at night and when out in the heat/humidity. Frequent productive cough. Clear sputum. Sees Dr. Zuñiga at [facility]. Smokes about 1/2 ppd. No alcohol. 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 Hyperlipidemia Juxtarenal ruptured abdominal aortic aneurysm (AAA) (HCC) 12/28/2021 PMH - PAST MEDICAL HISTORY OF 1979 left wrist fracture PUD (peptic ulcer disease) PAST SURGICAL HISTORY Procedure Laterality Date CABG (1) VEIN GRAFT AND ARTERIAL GRAFT 02/12/2019 AVR and CABG x1 PAST SURGICAL HISTORY OF cyst removed from back PAST SURGICAL HISTORY OF 12/28/2021 AAA repair - Stable status post graft repair of abdominal aortic aneurysm. PAST SURGICAL HISTORY OF 2024 Hernia repair PAST SURGICAL HISTORY OF 06/27/2024 Biopsy bladder REMV CATARACT EXTRACAP,INSERT LENS Left REMV CATARACT EXTRACAP,INSERT LENS Right phenazopyridine (PYRIDIUM) 100 mg tablet Take 100 mg by mouth three times a day. cholecalciferol, vitamin D3, (VITAMIN D-3) 10 mcg (400 unit) cap Take 400 Units by mouth once daily. amLODIPine (NORVASC) 5 mg tablet Take 5 mg by mouth once daily. lsbjvhqvpbi-kkxifxkzk-e ilanter (TRELEGY ELLIPTA) 200-62.5-25 mcg inhalation powder Inhale 1 puff as instructed once daily. acetaminophen (TYLENOL) 325 mg tablet Take 2 tablets by mouth every 4 hours. rosuvastatin (CRESTOR) 5 mg tablet Take 5 mg by mouth once daily. aspirin 81 mg chewable tablet Take 1 tablet by mouth once daily. albuterol HFA (PROAIR HFA) 90 mcg/actuation inhaler Inhale 2 Puffs as instructed every 4 hours as needed for Wheezing/Shortness of Breath. metoprolol tartrate, short acting, (LOPRESSOR) 25 mg tablet Take 0.5 tablets by mouth every 12 hours. sulfamethoxazole-trimet hoprim (BACTRIM DS) 800-160 mg per tablet Take 1 tablet by mouth two times a day for 7 days. (Patient not taking: Reported on 09/05/2024) oxyCODONE IR (ROXICODONE) 5 mg immediate release tablet Take 1-2 tablets by mouth every 8 hours as needed for up to 9 doses. (Patient not (more content not included)... [facility] (VAIBHAV) ABELARDO IVORY ([id number]) 1950 M Date Time Provider Department 09/05/24 VIVIENNE GU During your visit today, we recorded the following information about you: Vivienne Gu RN 09/05/2024 3:45 PM Signed Met with patient and introduced myself. Patient was given a My [facility] binder with chemocare information, office contact information, thermometer, and additional chemotherapy resource booklets. Patient aware this nurse will review on scheduled appointment date. Vivienne Gu RN Allergies As of Date: 09/05/2024 (No Known Allergies) Date Reviewed: 09/05/2024 Reviewed by: Paramjit Lugo MA - Fully Assessed Reason for Visit: It Professional - Other [9952] Cmt: Introduction Prescriptions as of 09/05/2024 - phenazopyridine (PYRIDIUM) 100 mg tablet Take 100 mg by mouth three times a day. - cholecalciferol, vitamin D3, (VITAMIN D-3) 10 mcg (400 unit) cap Take 400 Units by mouth once daily. - amLODIPine (NORVASC) 5 mg tablet Take 5 mg by mouth once daily. - arlaxticwvp-mtgadlzen-f ilanter (TRELEGY ELLIPTA) 200-62.5-25 mcg inhalation powder Inhale 1 puff as instructed once daily. - acetaminophen (TYLENOL) 325 mg tablet Take 2 tablets by mouth every 4 hours. - rosuvastatin (CRESTOR) 5 mg tablet Take 5 mg by mouth once daily. - aspirin 81 mg chewable tablet Take 1 tablet by mouth once daily. - albuterol HFA (PROAIR HFA) 90 mcg/actuation inhaler Inhale 2 Puffs as instructed every 4 hours as needed for Wheezing/Shortness of Breath. - metoprolol tartrate, short acting, (LOPRESSOR) 25 mg tablet Take 0.5 tablets by mouth every 12 hours. Problem List As Of Date 09/05/2024 Noted Resolved CONTUSION OF FOREARM [S50.10XA] 08/09/2005 08/09/2005 Umbilical hernia without mention of obstruction*06/08/2012 Bilateral inguinal hernia [K40.20] 06/08/2012 Carpal tunnel syndrome of right wrist [G56.01] 06/08/2012 Aortic stenosis [I35.0] Smoking history [Z87.891] 09/07/2012 Hematuria [R31.9] 09/07/2012 Abdominal aortic aneurysm (HCC) [I71.40] 09/07/2012 10/27/2012 Coronary artery disease involving coronary bypa*02/06/2019 Essential hypertension [I10] 02/06/2019 Hyperlipidemia [E78.5] 02/06/2019 AAA (abdominal aortic aneurysm) without rupture*02/06/2019 Discharge planning issues [Z75.8] 02/09/2019 Preop testing [Z01.818] 02/09/2019 Atelectasis [J98.11] 02/12/2019 Acute blood loss anemia [D62] 02/12/2019 02/15/2019 Stress hyperglycemia [R73.9] 02/12/2019 12/30/2021 Fluid overload [E87.70] 02/14/2019 Thrombocytopenia (HCC) [D69.6] 02/14/2019 02/15/2019 Postoperative anemia [D64.9] 02/14/2019 02/15/2019 Transition of care performed with sharing of cl*02/15/2019 Current smoker [F17.200] 02/17/2019 Juxtarenal ruptured abdominal aortic aneurysm (*12/28/2021 Hx of CABG [Z95.1] 12/28/2021 Centrilobular emphysema (HCC) [J43.2] 12/28/2021 PUD (peptic ulcer disease) [K27.9] 12/28/2021 Postoperative pain [G89.18] 12/29/2021 Red blood cell antibody positive [R76.8] 12/30/2021 Type 2 diabetes mellitus without complication, *08/16/2024 CKD (chronic kidney disease) [N18.9] 08/16/2024 Malignant neoplasm of urinary bladder (HCC) [C6*09/05/2024 Encounter Status:Closed by VIVIENNE GU on 09/05/24 [facility] Telephone (VAIBHAV) ABELARDO IVORY ([id number]) 1950 M Date Time Provider Department 09/05/24 ANTHONY RIVERS During your visit today, we recorded the following information about you: Chrissy Downey 09/05/2024 3:30 PM Signed AVS 09/05 Labs today. done Referral to Dr. Banks for muscle invasive bladder cancer DONE Chemo ed. DONE Patient will be receiving 5FU concurrently with radiation. Once radiation is scheduled, patient will need 5FU M-F during week 1 and week 4. Will need PICC line and may leave in for 1 month for treatment. CBC D8 and D15. CBC/CMP D22. OV for week 4 of treatment- no labs. OV with me in about 8 weeks. Anthony Rivers DO 09/05/2024 5:32 PM Signed Lab results from today show significant elevation of serum creatinine and BUN. Ultrasound stat. Also scheduled for potential nephrostomy tube placement at [facility] or [place]. Chelsea Gutierres 09/06/2024 10:09 AM Addendum Scheduled US for 09/07 PICC LINE 09/10 @ 10 [facility] Stacy Collado MD 09/06/2024 9:51 AM Signed Absolutely- will add antegrade stent to procedure if IR is able MD Lizzette Rosales Melissa 09/06/2024 12:15 PM Signed Received call from [facility] stating they are unable to insert picc with order placed. She states they need a Tunneled Picc ordered and [facility] would schedule that procedure. Elizabeth Ludwig LPN 09/06/2024 12:22 PM Signed See routing comment below. I will take care of the PICC line when appropriate to schedule. The IR order that's in is for a nephrostomy tube. SUDHA Rachel Melissa 09/07/2024 12:18 PM Addendum AVS 09/05 Radiation start 09/17 Labs today. done Referral to Dr. Banks for muscle invasive bladder cancer DONE Chemo ed. DONE Patient will be receiving 5FU concurrently with radiation. DONE/START EMAIL SENT Once radiation is scheduled, patient will need 5FU M-F during week 1 and week 4. Will need PICC line and may leave in for 1 month for treatment. CBC D8 and D15. DONE CBC/CMP D22. DONE OV for week 4 of treatment- no labs. OV with me in about 8 weeks. Megha Knight 09/07/2024 12:20 PM Signed Week 4 of treatment falls on 10/08, . Spoke with Vivienne regarding treatment and she had a couple of possibilities for treatment. Please advise if patient needs to start later than 09/17 or if patient can start later the week of 10/08 and remove pump the following week. Megha Knight 09/07/2024 4:30 PM Signed Schedule updated and completed Megha Knight 09/10/2024 10:20 AM Signed Will need PICC line and may leave in for 1 month for treatment. Elizabeth Ludwig LPN 09/10/2024 10:49 AM Signed PICC orders faxed to [facility]; needs placed on 09/21/2024. SUDHA Rachel Melissa 09/10/2024 10:55 AM Signed chemo moved to 09/24 Allergies As of Date: 09/05/2024 (No Known Allergies) Date Reviewed: 09/05/2024 Reviewed by: Paramjit Lugo MA - Fully Assessed Reason for Visit: Results [95] Primary Visit Diagnosis:Malignant neoplasm of overlapping sites of bladder (HCC) [C67.8] Other Visit Diagnoses:ROSALIE (acute kidney injury) [N17.9] Hydroureter on left [N13.4] Order(s): KIDNEY/BLADDER [[id number]] Order #: [id number] FUTURE IR NEPHROSTOMY TUBE PLACE [[id number]] Order #: [id number] Prescriptions as of 09/10/2024 - phenazopyridine (PYRIDIUM) 100 mg tablet Take 100 mg by mouth three times a day. - cholecalciferol, vitamin D3, (VITAMIN D-3) 10 mcg (400 unit) cap Take 400 Units by mouth once daily. - amLODIPine (NORVASC) 5 mg tablet Take 5 mg by mouth once daily. - gqcdmhozake-xmmzvdggw-j ilanter (TRELEGY ELLIPTA) 200-62.5-25 mcg inhalation powder Inhale 1 puff as instructed once daily. - acetaminophen (TYLENOL) 325 mg tablet Take 2 tablets by mouth every 4 hours. - rosuvastatin (CRESTOR) 5 mg tablet Take 5 mg by mouth once daily. - aspirin 81 mg chewable tablet Take 1 tablet by mouth once daily. - albuterol HFA (PROAIR HFA) 90 mcg/actuation inhaler Inhale 2 Puffs as instructed every 4 hours as needed for Wheezing/Shortness of Breath. - metoprolol tartrate, short acting, (LOPRESSOR) 25 mg tablet Take 0.5 tablets by mouth every 12 hours. Problem List As Of Date 09/05/2024 Noted Resolved CONTUSION OF FOREARM [S50.10XA] 08/09/2005 08/09/2005 Umbilical hernia without mention of obstruction*06/08/2012 Bilateral inguinal hernia [K40.20] 06/08/2012 Carpal tunnel syndrome of right wrist [G56.01] 06/08/2012 Aortic stenosis [I35.0] Smoking history [Z87.891] 09/07/2012 Hematuria [R31.9] 09/07/2012 Abdominal aortic aneurysm (HCC) [I71.40] 09/07/2012 10/27/2012 Coronary artery disease involving coronary bypa*02/06/2019 Essential hypertension [I10] 02/06/2019 Hyperlipidemia [E78.5] 02/06/2019 AAA (abdominal aortic aneurysm) without rupture*02/06/2019 Discharge planning issues [Z75.8] 02/09/2019 Preop testing [Z (more content not included)... Normal [facility] metabolic 2000 panelOrdered By: Jessie Stewart on 09-05-2024 Albumin [Mass/Vol] 4.4 g/dL 3.9 - 4.9 g/dL [facility] ALP [Catalytic activity/Vol] 75 U/L 38 - 113 U/L [facility] ALT [Catalytic activity/Vol] 8 U/L Low 10 - 54 U/L [facility] Anion gap [Moles/Vol] 15 mmol/L 8 - 15 mmol/L [facility] AST [Catalytic activity/Vol] 14 U/L 14 - 40 U/L [facility] Bilirubin [Mass/Vol] 0.3 mg/dL 0.2 - 1 .3 mg/dL [facility] Calcium [Mass/Vol] 9.1 mg/dL 8.5 - 10. 2 mg/dL [facility] Chloride [Moles/Vol] 103 mmol/L 98 - 10 7 mmol/L [facility] CO2 [Moles/Vol] 18 mmol/L Low 22 - 30 mmol/L [facility] Creatinine [Mass/Vol] 2.23 mg/dL High 0.73 - 1.22 mg/dL [facility] GFR/1.73 sq M.predicted among non-blacks MDRD (S/P/Bld) [Vol rate/Area] 30 mL/min/{1.73_m2} Low - PINF [facility] Comment on above: Estimated Glomerular Filtration Rate (eGFR) is calculated using the 2020 CKD-EPI creatinine equation. This equation utilizes serum creatinine, sex, and age as parameters. The creatinine assay has traceable calibration to isotope dilution-mass spectrometry. Refer to KDIGO guidelines for clinical interpretation. In patients with unstable renal function, e.g. those with acute kidney injury, the eGFR may not accurately reflect actual GFR. Glucose [Mass/Vol] 104 mg/dL High 74 - 99 mg/dL [facility] Comment on above: The [place] Diab[employer] Association (ADA) provides guidance for cutoff values for fasting glucose and random glucose. The ADA defines fasting as no caloric intake for at least 8 hours. Fasting plasma glucose results between 100 to 125 mg/dL indicate increased risk for diabetes (prediabetes). Fasting plasma glucose results greater than or equal to 126 mg/dL meet the criteria for diagnosis of diabetes. In the absence of unequivocal hyperglycemia, results should be confirmed by repeat testing. In a patient with classic symptoms of hyperglycemia or hyperglycemic crisis, random plasma glucose results greater than or equal to 200 mg/dL meet the criteria for diagnosis of diabetes. Reference: Standards of Medical Care in Diabetes 2016, [place] Diabetes Association. Diabetes Care. 2016.39(Suppl 1). Interpretation and review of laboratory results Abnormal [facility] Potassium [Moles/Vol] 5.3 mmol/L High 3.7 - 5.1 mmol/L [facility] Protein [Mass/Vol] 7.4 g/dL 6.3 - 8.0 g/dL [facility] Sodium [Moles/Vol] 136 mmol/L 136 - 144 mmol/L [facility] Urea nitrogen [Mass/Vol] 35 mg/dL High 9 - 24 mg/dL [facility] Comprehensive metabolic 2000 panelon 09-05-2024 Albumin [Mass/Vol] 4.4 g/dL Normal 3.9-4.9 [facility] Comment on above: Order Comment: Raul hutson Type: BLOOD SPECIMEN Ordering Facility: [facility] Address: [address] [place] [address] Performed By: #### 2 4323-8 #### [facility] CLIA [id number] [address] [place] [address] [place] ALP [Catalytic activity/Vol] 75 U/L Normal 38-113 [facility] Comment on above: Order Comment: Michellei men Type: BLOOD SPECIMEN Ordering Facility: [facility] Address: [address] [place] [address] Performed By: #### 2 4323-8 #### [facility] CLIA [id number] [address] [place] [address] [place] ALT [Catalytic activity/Vol] 8 U/L Low 10-54 [facility] Comment on above: Order Comment: Speci men Type: BLOOD SPECIMEN Ordering Facility: [facility] Address: [address] [place] [address] Performed By: #### 2 4323-8 #### [facility] CLIA [id number] [address] [place] [address] [place] Anion gap [Moles/Vol] 15 mmol/L Normal 8-15 [facility] Comment on above: Order Comment: Speci men Type: BLOOD SPECIMEN Ordering Facility: [facility] Address: [address] [place], [place] [id number] Performed By: #### 2 4323-8 #### [facility] CLIA [id number] [address] [place] [address] [place] AST [Catalytic activity/Vol] 14 U/L Normal 14-40 [facility] Comment on above: Order Comment: Speci men Type: BLOOD SPECIMEN Ordering Facility: [facility] Address: [address] [place] [address] Performed By: #### 2 4323-8 #### [facility] CLIA [id number] [address] [place] [address] [place] Bilirubin [Mass/Vol] 0.3 mg/dL Normal 0.2-1.3 [facility] Comment on above: Order Comment: Speci men Type: BLOOD SPECIMEN Ordering Facility: [facility] Address: [address] [place] [address] Performed By: #### 2 4323-8 #### [facility] CLIA [id number] [address] [place] [address] [place] Calcium [Mass/Vol] 9.1 mg/dL Normal 8.5-10.2 [facility] Comment on above: Order Comment: Speci men Type: BLOOD SPECIMEN Ordering Facility: [facility] Address: [address] [place] [address] Performed By: #### 2 4323-8 #### [facility] CLIA [id number] [address] [place] [address] [place] Chloride [Moles/Vol] 103 mmol/L Normal 98-107 [facility] Comment on above: Order Comment: Speci men Type: BLOOD SPECIMEN Ordering Facility: [facility] Address: [address] [place] [address] Performed By: #### 2 4323-8 #### [facility] CLIA [id number] [address] [place] [address] [place] CO2 [Moles/Vol] 18 mmol/L Low 22-30 [facility] Comment on above: Order Comment: Speci men Type: BLOOD SPECIMEN Ordering Facility: [facility] Address: [address] [place] [address] Performed By: #### 2 4323-8 #### [facility] CLIA [id number] [address] [place] [address] [place] Creatinine [Mass/Vol] 2.23 mg/dL High 0.73-1.22 [facility] Comment on above: Order Comment: Speci men Type: BLOOD SPECIMEN Ordering Facility: [facility] Address: [address] [place] [address] Performed By: #### 2 4323-8 #### [id number] [address] [place] [address] [place] eGFRcr SerPlBld CKD-EPI 2020 30 mL/min/1.73m??? Low >=60 [facility] Comment on above: Order Comment: Speci men Type: BLOOD SPECIMEN Ordering Facility: [facility] Address: [address] [place] [address] Result Comment: Amy mated Glomerular Filtration Rate (eGFR) is calculated using the 2020 CKD-EPI creatinine equation. This equation utilizes serum creatinine, sex, and age as parameters. The creatinine assay has traceable calibration to isotope dilution-mass spectrometry. Refer to KDIGO guidelines for clinical interpretation. In patients with unstable renal function, e.g. those with acute kidney injury, the eGFR may not accurately reflect actual GFR. Performed By: #### 2 4323-8 #### [facility] [id number] [address] [place] [address] [place] Glucose [Mass/Vol] 104 mg/dL High 74-99 [facility] Comment on above: Order Comment: Raul hutson Type: BLOOD SPECIMEN Ordering Facility: [facility] Address: [address] [place] [address] Result Comment: The [place] Diabetes Association (ADA) provides guidance for cutoff values for fasting glucose and random glucose. The ADA defines fasting as no caloric intake for at least 8 hours. Fasting plasma glucose results between 100 to 125 mg/dL indicate increased risk for diabetes (prediabetes). Fasting plasma glucose results greater than or equal to 126 mg/dL meet the criteria for diagnosis of diabetes. In the absence of unequivocal hyperglycemia, results should be confirmed by repeat testing. In a patient with classic symptoms of hyperglycemia or hyperglycemic crisis, random plasma glucose results greater than or equal to 200 mg/dL meet the criteria for diagnosis of diabetes. Reference: Standards of Medical Care in Diabetes 2016, [place] Diabetes Association. Diabetes Care. 2016.39(Suppl 1). Performed By: #### 2 4323-8 #### [facility] [id number] [address] [place] [address] [place] Potassium [Moles/Vol] 5.3 mmol/L High 3.7-5.1 [facility] Comment on above: Order Comment: Raul hutson Type: BLOOD SPECIMEN Ordering Facility: [facility] Address: [address] [place] [address] Performed By: #### 2 4323-8 #### [facility] [id number] [address] [place] [address] [place] Protein [Mass/Vol] 7.4 g/dL Normal 6.3-8.0 [facility] Comment on above: Order Comment: Raul hutson Type: BLOOD SPECIMEN Ordering Facility: [facility] Address: [address] [place] [address] Performed By: #### 2 4323-8 #### [facility] CLIA [id number] [address] [place] [address] [place] Sodium [Moles/Vol] 136 mmol/L Normal 136-144 [facility] Comment on above: Order Comment: Speci men Type: BLOOD SPECIMEN Ordering Facility: [facility] Address: [address] [place] [address] Performed By: #### 2 4323-8 #### [facility] CLIA [id number] [address] [place] [address] [place] Urea nitrogen [Mass/Vol] 35 mg/dL High 9-24 [facility] Comment on above: Order Comment: Speci men Type: BLOOD SPECIMEN Ordering Facility: [facility] Address: [address] [place] [address] Performed By: #### 2 4323-8 #### [facility] CLIA [id number] [address] [place] [address] [place] DPYD/UGT1A1 GENOTYPING PANEL on 09-05-2024 DPYD/UGT1A1 GENOTYPING PANEL RESULT Normal [facility] Comment on above: Order Comment: Speci men Type: BLOOD SPECIMEN Ordering Facility: [facility] Address: [address] [place] [address] Result Comment: [facility] [employer] ([employer] DPYD and UGT1A1 Genotyping Laboratory Accession Number: [id number] DPYD Genotype: *1/*1 DPYD Activity Score: 2 DPYD Predicted Phenotype: DPYD Normal Metabolizer UGT1A1 Genotype: *1/*80+*28 UGT1A1 Predicted Phenotype: UGT1A1 Intermediate Metabolizer Interpretation: Two normal function alleles were observed in the DPYD gene (see variant details below) resulting in an activity score of 2. This activity score is associated with a DPYD normal metabolizer phenotype. DPYD normal metabolizers are not expected to require (based on pharmacogenomic results alone) selective adjustment of the dose of medications metabolized by DPD. Please consult a clinical pharmacist for more information regarding drug therapy. Questions regarding molecular testing details should be directed to [email or web address]. One decreased function UGT1A1 allele, in combination with either one normal function or one increased function UGT1A1 allele, was observed in this sample (see variant details below). This is associated with a UGT1A1 intermediate metabolizer phenotype. UGT1A1 intermediate metabolizers are not expected to require (based on pharmacogenomic results alone) selective adjustment of the dose of medications metabolized by UGT. Please consult a clinical pharmacist for more information regarding drug therapy. Questions regarding molecular testing details should be directed to [email or web address]. The DPYD gene encodes dihydropyrimidine dehydrogenase (DPD). This enzyme is involved in the metabolism of fluoropyrimidines. The UGT1A1 gene encodes UDP-glucuronosyltransferase (UGT). UGT is involved in the metabolism of certain medications including ones used in oncology. For clinical correlation, drug-specific guidelines are available to provide phenotype assignment and therapeutic recommendations based on phenotype. Patients who carry genetic variants associated with altered metabolism may be at risk for an adverse or poor response to drugs that are predominantly metabolized by the associated enzyme (DPD or UGT). For patients with altered DPD and/or UGT activity, alternative pharmacological agents or dosing adjustments may be needed for medications metabolized by this enzyme to avoid an unexpected or adverse response. Please note that this DPYD genotyping test includes variants that may not have been assayed in a previous test performed elsewhere. If there is discordance of phenotype results between laboratories, it is likely a function of the different variants assayed in each test. The methodology section of the report (see below) lists the variants interrogated by this test. DPYD Variant Details: NA UGT1A1 Variant Details: UGT1A1 [id number], c.-346C>T, g.[id number]>T (legacy name 80); UGT1A1 [id number], c.-41_-40dupTA [id number] (legacy name 28) DPYD Additional Information: In addition to increased risk of 5-fluorouracil toxicity, variants in the DPYD gene may be associated with DPD deficiency, an autosomal recessive inborn error of metabolism (OMIM: 020810). DPD deficiency exhibits a wide range of phenotypic variability, from no symptoms to a very rare severe neurological disorder with onset in infancy or childhood (prevalence unknown). For the vast majority of affected individuals, the first and only symptom is sensitivity to 5-fluorouracil and capecitabine. It is possible that individuals with DPD deficiency may be identified by the presence of two no-function DPYD variants (activity score = 0). However, this test is designed as a pharmacogenomic test and is not intended as a diagnostic or carrier test for DPD deficiency. A formal genetics consultation is recommended for those with concerns regarding DPD deficiency. Limitations: DNA studies do not provide a definitive genetic or pharmacogenomic risk in all individuals. This test is designed to detect a specific set of variants (see list below) in the DPYD gene (OMIM 230906) and UGT1A1 gene (OMIM 946388). This test does not detect all sequence variants in either gene. Uncommon variants or single nucleotide polymorphisms may affect binding of primers and probes and may result in false negative, false positive, or indeterminate results. The absence of abnormal variants as analyzed in this test is interpreted as the presence of *1/*1 (wild type/normal) genotype. The phenotype provided in the interpretation may be impacted by undetected genetic and/or non-genetic factors such as drug-drug interactions. Methodology: Purified genomic DNA was subjected to polymerase chain reaction-based amplification. The DPYD (NM_000110.3) and UGT1A1 (NM_000463.3) genes were interrogated for known, clinically relevant variants. Primer extension products were analyzed using matrix-assisted laser desorption/ionization massspectrometry, and specific genotypes assigned we (more content not included)... Performed By: #### 2 4323-8 #### [facility] [id number] [address] [place], [place] [id number] [place] HBV core Ab Ser Qlon 025 HBV core Ab Ql (S) Negative Normal Negative [facility] Comment on above: Order Comment: Speci men Type: BLOOD SPECIMEN Ordering Facility: [facility] Address: [facility] [place] [address] Result Comment: No e vidence of current or past infection with Hepatitis B virus. Should recent infection be suspected, repeat testing may be considered 3-4 weeks after this draw. Performed By: #### 2 4323-8 #### [facility] CLIA [id number] [address] [place] [address] [place] HBV surface Ab Ql (S)on 08-09 HBV surface Ab Qn (S) <8.00 Normal [facility] Comment on above: Order Comment: Speci men Type: BLOOD SPECIMEN Ordering Facility: [facility] Address: [address] [place] [address] Result Comment: <8 m IU/mL: No serological evidence of immunity to Hepatitis B Virus. >/= 8 to <12 mIU/mL: No serological evidence of immunity to Hepatitis B Virus. >/= 12 mIU/mL: Consistent with serological evidence of immunity to Hepatitis B Virus. Performed By: #### 2 4323-8 #### [facility] CLIA [id number] [address] [place] [address] [place] HBV surface Ab Ser Qlon 08-09 HBV surface Ab Ql (S) Negative Normal [facility] Comment on above: Order Comment: Speci men Type: BLOOD SPECIMEN Ordering Facility: [facility] Address: [address] [place] [address] Result Comment: No s erological evidence of immunity to Hepatitis B Virus. Performed By: #### 2 4323-8 #### [facility] CLIA [id number] [address] [place] [address] [place] HBV surface Ag Ser Qlon 08-09 HBV surface Ag Ql (S) Negative Normal Negative [facility] Comment on above: Order Comment: Speci men Type: BLOOD SPECIMEN Ordering Facility: [facility] Address: [address] [place] [address] Performed By: #### 2 4323-8 #### [facility] CLIA [id number] [address] [place] [address] [place] HCV Ab Ser Qlon 09-05-2024 HCV Ab Ql (S) Negative Normal Negative [facility] Comment on above: Order Comment: Speci men Type: BLOOD SPECIMEN Ordering Facility: [facility] Address: [address] [place] [id number] Result Comment: The result suggests no evidence of infection with Hepatitis C virus. Should recent infection be suspected, repeat testing may be considered 4-6 weeks after this draw. Performed By: #### 1 6128-1 #### [facility] CLIA [id number] [address] [facility] [address] [place] [id number] [place] Cardiology Visit Reporton Cardiology Visit Report [facility] [address] [place] [address] OFFICE VISIT Date of Service: 08/30/24 MR#: [id number] Acct: [id number] Name: ABELARDO IVORY Rep #: [id number] : 1950 Provider: TOÑO stover Age/Sex: 74/M Location: [facility] Status: Signed HPI HPI History of Present Illness Details: Abelardo Ivory is a 74-year-old male who presents to the office today for a cardiovascular follow-up visit. He underwent a transurethral bladder resection on 06/27/[address] Mcclendon for concerns of a bladder mass. He states that he will be starting chemo treatments soon at [facility]. Patient has a history of aortic stenosis diagnosed in 2012. Patient underwent coronary angiography which revealed 80% stenosis in the RCA and patient was referred to [facility] for aortic valve and RCA revascularization. Patient underwent AVR plus CABG x 1 (Perimount #23, SVG to RCA at [facility] on 02/12/2019). Patient did well postoperatively with echocardiogram demonstrating preserved ejection fraction, normally functioning prosthetic aortic valve with peak gradient 25 mmHg and mean gradient of 13 mmHg. Patient was diagnosed with an abdominal aortic aneurysm and was sent to [facility] for an opinion. It was noted to measure 5.1 cm on his abdominal pelvic CT scan. He did suggest to the surgeon that he was not currently interested in aortic surgery. He was seen in the emergency department 12/28/2021 for abdominal pain in which his CT scan demonstrated 5 cm infrarenal abdominal aortic aneurysm with adjacent retroperitoneal fluid suggesting of aneurysm leak. Patient was transferred to [facility] facility and on 12/28/2021 patient proceeded with thoracoretroperitoneal ruptured juxtarenal abdominal aortic aneurysm repair. His most recent echocardiogram 04/29/2023 demonstrated preserved ejection fraction, no regional wall motion abnormalities, aortic valve with peak gradient 25 mmHg and mean valve gradient 13 mmHg. From a cardiac standpoint, the patient is doing well. He denies any palpitations, chest pain, pressure or heaviness. He does acknowledge SOB with exertion with really hot days. He denies Orthopnea, and PND. He does not have bleeding issues; no blood in urine, stool, or nosebleeds. He denies any decrease in energy level, myalgias, or claudication. He does not have edema, or sudden weight gain. He denies lightheadedness, dizziness, syncopal or near syncopal episodes, and headaches. Intake Vital Signs 06/19/24 06:17 06/27/24 15:48 08/30/24 08:13 Height 5 ft 6 in 5 ft 6 in 5 ft 6 in Weight: 154 lb BMI 24.8 BP 99/61 Blood Pressure Location Rt brachial Position Sitting Respiration 16 Pulse 54 L Pulse Source Monitor Pulse Oximetry (%) 93 Oxygen Delivery Method room air Intake Visit Reasons: 1 Y FU Inspector Government Property Required: No Accompanied by: Self Is patient in pain?: No Allergies No Known Allergies Allergy (Verified 08/30/24 08:32) Medications ???Medication ???Instructions ???Recorded ???Confirmed ???Type aspirin 81 mg tablet,delayed 81 mg PO DAILY heart health 08/30/24 History release Held on 06/27/24. Instructions: Resume on 07/11/24. rosuvastatin 5 mg tablet (Crestor) 5 mg PO DAILY cholesterol 08/30/24 History amlodipine 5 mg tablet 5 mg PO DAILY #30 tabs 02/28/23 Rx cholecalciferol (vitamin D3) 25 25 mcg PO DAILY 10/27/23 08/30/24 History mcg (1,000 unit) capsule metoprolol tartrate 25 mg tablet 12.5 mg (1/2 x 25 mg) PO BID #90 0 03/22/24 08/30/24 Rx tabs acetaminophen 500 mg capsule 1,000 mg PO Q6H PRN pain 06/13/24 08/30/24 History fluticasone fur. 200 mcg-umeclid 1 inh inhalation DAILY PRN SOB 08/3108/30/24 History 62.5 mcg-vilant 25 mcg inhalat.powder (Trelegy Ellipta) phenazopyridine 100 mg tablet 100 mg PO TID 08/30/24 08/30/24 Hi story sulfamethoxazole 800 1 tab PO BID 08/30/24 08/30/24 His tory mg-trimethoprim 160 mg tablet Ejection fraction %: 55 Have you fallen in the past year?: No Nurse's Note: Recent dx bladder cancer. To start treatment. [facility] Medical History Bladder cancer Wears dentures Wears glasses Bruising Easy bruising High cholesterol Smoker Shortness of breath on exertion History of echocardiogram Cardiology follow-up encounter Stage 3b chronic kidney disease (CKD) Thrombocytopenia Chronic kidney insufficiency Pleural effusion Secondary pulmonary arterial hypertension Atherosclerotic heart disease of lummi coronary artery without angina pectoris Intention tremor Carotid stenosis, bilateral Hyperlipidemia Nonrheumatic aortic (valve) stenosis Essential hypertension Tobacco dependence Bilateral ingui (more content not included)... Normal [facility] BLADDER SCANon 08-29-2024 Bladder scan volume 32ml [facility] CNOVon 08-29-2024 CNOV Office Visit (UROLAE ) ABELARDO IVORY ([id number]) 1950 M Date Time Provider Department 08/29/24 1:30 PM STACY GAUTHIER During your visit today, we recorded the following information about you: Weight 70.8 kg Stacy Gauthier MD 08/29/2024 1:40 PM Signed ESTABLISHED PATIENT OFFICE VISIT HISTORY OF PRESENT ILLNESS Patient presents with: Bladder Cancer Hematuria Abelardo Ivory is a 74 year old male who presents with his dtr for follow up regarding his gross hem LAB RESULTS Creatinine Date Value Ref Range Status 07/26/2024 1.54 (H) 0.73 - 1.22 mg/dL Final PSA (ng/mL) Date Value 09/07/2012 0.46 Color (no units) Date Value 02/06/2019 Yellow Clarity (no units) Date Value 02/06/2019 Clear Glucose, Urine (mg/dL) Date Value 02/06/2019 Negative Bilirubin, Urine (no units) Date Value 02/06/2019 Negative Ketones, Urine (no units) Date Value 02/06/2019 Negative Specific [place], Ur (no units) Date Value 02/06/2019 1.017 Hemoglobin/Blood,Ur ( ) Date Value 02/06/2019 1+ pH, Urine (no units) Date Value 02/06/2019 6.0 Protein, Urine (mg/dL) Date Value 02/06/2019 Negative Urobilinogen (no units) Date Value 02/06/2019 Normal Nitrites (no units) Date Value 02/06/2019 Negative Leukest (no units) Date Value 02/06/2019 Negative ALLERGIES No Known Allergies MEDICATIONS: amLODIPine (NORVASC) 5 mg tablet Take 5 mg by mouth once daily. ctvliqlfycv-fhglexsjz-o ilanter (TRELEGY ELLIPTA) 200-62.5-25 mcg inhalation powder Inhale 1 puff as instructed once daily. oxyCODONE IR (ROXICODONE) 5 mg immediate release tablet Take 1-2 tablets by mouth every 8 hours as needed for up to 9 doses. (Patient not taking: Reported on 02/03/2022) acetaminophen (TYLENOL) 325 mg tablet Take 2 tablets by mouth every 4 hours. docusate sodium (COLACE) 100 mg capsule Take 1 capsule by mouth twice daily. (Patient not taking: Reported on 02/03/2022) rosuvastatin (CRESTOR) 5 mg tablet Take 5 mg by mouth once daily. iv contrast (will be provided with radiology test) CT Cardiac - No IV access, insert saline lock prior to the sedation, infusion, injection for imaging exam. Discontinue saline lock post exam. If Pt. has a central line or IVAD, may access for administration according to line specific nursing protocol. Once exam is complete flush line and de-access according to line specific nursing protocol in the CT contrast administration guidelines link. (Patient not taking: Reported on 04/17/2021) Omeprazole 40 mg capsule Take 1 capsule by mouth once daily. (Patient not taking: Reported on 08/16/2024) aspirin 81 mg chewable tablet Take 1 tablet by mouth once daily. albuterol HFA (PROAIR HFA) 90 mcg/actuation inhaler Inhale 2 Puffs as instructed every 4 hours as needed for Wheezing/Shortness of Breath. metoprolol tartrate, short acting, (LOPRESSOR) 25 mg tablet Take 0.5 tablets by mouth every 12 hours. REVIEW OF SYSTEMS GENERAL:no unintentional weight loss, malaise or fevers. NEUROLOGIC: pt is alert and oriented GENITOURINARY: See HPI The remainder of the ROS was reviewed and is negative. HISTORIES 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 Hyperlipidemia Juxtarenal ruptured abdominal aortic aneurysm (AAA) (HCC) 12/28/2021 PMH - PAST MEDICAL HISTORY OF 1979 left wrist fracture PUD (peptic ulcer disease) FAMILY HISTORY Problem Relation Age of Onset Diabetes Mother Emphysema Mother Asthma Sister Cancer Brother Aneurysm No Family History PAST SURGICAL HISTORY Procedure Laterality Date CABG (1) VEIN GRAFT AND ARTERIAL GRAFT 02/12/2019 AVR and CABG x1 PAST SURGICAL HISTORY OF cyst removed from back PAST SURGICAL HISTORY OF 12/28/2021 AAA repair - Stable status post graft repair of abdominal aortic aneurysm. PAST SURGICAL HISTORY OF 2024 Hernia repair SOCIAL HISTORY Social History Tobacco Use Smoking status: Every Day Current packs/day: 0.00 Average packs/day: 1 pack/day for 40.0 years (40.0 ttl pk-yrs) Types: Cigarettes Start date: 01/30/1979 Last attempt to quit: 01/30/2019 Years since quittin.5 Smokeless tobacco: Never Tobacco comments: started smoking 15yo, usually 1 PPD Vaping Use Vaping status: Never Used Substance Use Topics Alcohol use: No Drug use: No PHYSICAL EXAMINATION General appearance: Well appearing, alert, in no acute distress, well-hydrated, well nourished Psych Alert and oriented to person, place and time Respiratory: no wheezing or rhonchi Genitourinary: MALE EXAM: Exam NOT Indicated 08/29/2024 PVR <50cc 07/16 (more content not included)... Normal [facility] CNPNon 08-29-2024 CNPN Telephone (HEMCA3) ABELARDO IVORY ([id number]) 1950 M Date Time Provider Department 08/29/24 CODEY CHRISTIANSON HEMCA3 During your visit today, we recorded the following information about you: Tabitha Hayes 08/29/2024 3:29 PM Signed Abelardo Ivory is calling Codey Christianson MD today regarding [facility] - Other Patient wants to have his radiation locally at the [facility] in [place]. [place] told him they need information from Dr. Christianson to make sure they have the treatment he needs/getting. Can someone call the patient back Patient has been identified by name and birthdate. Requesting response back: [phone] (home) [phone] (cell) Tabitha Hayes August 29, 2024 Rakel Post RN 08/29/2024 4:50 PM Signed Returned call to Abelardo Ivory regarding establishing care at [facility]. Contacted [facility] and spoke with Saira in hem/onc and she was able to schedule Darrel for: 09/05/2024 @ 2PM with Dr. Anthony Rivers. All questions addressed. Rakel KIRBY, RN Specialty [facility] Allergies As of Date: 08/29/2024 (No Known Allergies) Date Reviewed: 08/29/2024 Reviewed by: Marii Quick MA - Fully Assessed Reason for Visit: [facility] - Other [8530] Prescriptions as of 08/29/2024 - phenazopyridine (PYRIDIUM) 200 mg tablet Take 1 tablet by mouth three times a day as needed (burning when urinating) for up to 5 days. Turns urine bright orange and stains - sulfamethoxazole-trimet hoprim (BACTRIM DS) 800-160 mg per tablet Take 1 tablet by mouth two times a day for 7 days. - amLODIPine (NORVASC) 5 mg tablet Take 5 mg by mouth once daily. - uwyesrrsseb-pqgayfcbs-i ilanter (TRELEGY ELLIPTA) 200-62.5-25 mcg inhalation powder Inhale 1 puff as instructed once daily. - oxyCODONE IR (ROXICODONE) 5 mg immediate release tablet Take 1-2 tablets by mouth every 8 hours as needed for up to 9 doses. - acetaminophen (TYLENOL) 325 mg tablet Take 2 tablets by mouth every 4 hours. - docusate sodium (COLACE) 100 mg capsule Take 1 capsule by mouth twice daily. - rosuvastatin (CRESTOR) 5 mg tablet Take 5 mg by mouth once daily. - iv contrast (will be provided with radiology test) CT Cardiac - No IV access, insert saline lock prior to the sedation, infusion, injection for imaging exam. Discontinue saline lock post exam. If Pt. has a central line or IVAD, may access for administration according to line specific nursing protocol. Once exam is complete flush line and de-access according to line specific nursing protocol in the CT contrast administration guidelines link. - Omeprazole 40 mg capsule Take 1 capsule by mouth once daily. - aspirin 81 mg chewable tablet Take 1 tablet by mouth once daily. - albuterol HFA (PROAIR HFA) 90 mcg/actuation inhaler Inhale 2 Puffs as instructed every 4 hours as needed for Wheezing/Shortness of Breath. - metoprolol tartrate, short acting, (LOPRESSOR) 25 mg tablet Take 0.5 tablets by mouth every 12 hours. Problem List As Of Date 08/29/2024 Noted Resolved CONTUSION OF FOREARM [S50.10XA] 08/09/2005 08/09/2005 Umbilical hernia without mention of obstruction*06/08/2012 Bilateral inguinal hernia [K40.20] 06/08/2012 Carpal tunnel syndrome of right wrist [G56.01] 06/08/2012 Aortic stenosis [I35.0] Smoking history [Z87.891] 09/07/2012 Hematuria [R31.9] 09/07/2012 Abdominal aortic aneurysm (HCC) [I71.40] 09/07/2012 10/27/2012 Coronary artery disease involving coronary bypa*02/06/2019 Essential hypertension [I10] 02/06/2019 Hyperlipidemia [E78.5] 02/06/2019 AAA (abdominal aortic aneurysm) without rupture*02/06/2019 Discharge planning issues [Z75.8] 02/09/2019 Preop testing [Z01.818] 02/09/2019 Atelectasis [J98.11] 02/12/2019 Acute blood loss anemia [D62] 02/12/2019 02/15/2019 Stress hyperglycemia [R73.9] 02/12/2019 12/30/2021 Fluid overload [E87.70] 02/14/2019 Thrombocytopenia (HCC) [D69.6] 02/14/2019 02/15/2019 Postoperative anemia [D64.9] 02/14/2019 02/15/2019 Transition of care performed with sharing of cl*02/15/2019 Current smoker [F17.200] 02/17/2019 Juxtarenal ruptured abdominal aortic aneurysm (*12/28/2021 Hx of CABG [Z95.1] 12/28/2021 Centrilobular emphysema (HCC) [J43.2] 12/28/2021 PUD (peptic ulcer disease) [K27.9] 12/28/2021 Postoperative pain [G89.18] 12/29/2021 Red blood cell antibody positive [R76.8] 12/30/2021 Type 2 diabetes mellitus without complication, *08/16/2024 CKD (chronic kidney disease) [N18.9] 08/16/2024 Encounter Status:Closed by RAKEL POST on 08/29/24 [facility], URINE (POC)on 2024 BILIRUBIN UA (POCT) Negative Negative [facility] CLARITY UA (POCT) Clear [facility] COLOR UA (POCT) Yellow [facility] GLUCOSE UA (POCT) Negative Negative mg/dL [facility] Hemoglobin Ql (U) Large Abnormal Negative [facility] Interpretation and review of laboratory results Abnormal [facility] KETONE UA (POCT) Negative Negative mg/dL [facility] LEUKOCYTES UA (POCT) Moderate Abnormal Negative [facility] NITRITE UA (POCT) Negative Negative [facility] PH UA (POCT) 6 4.5 - 8.0 [facility] Protein Ql (U) 100 mg/dL Abnormal Negative [facility] SPECIFIC GRAVITY UA (POCT) 1.025 1.005 - 1.030 [facility] UROBILINOGEN UA (POCT) 0.2 Margaret l E.U./dL [facility] Location:[facility], [address] [place] [address], [address] [place] [address] POINT OF CARE [facility] CNPMalina 08-24-2024 CNPN Telephone (MIGUEL AAristides CASTILLO) ABELARDO IVORY ([id number]) 1950 M Date Time Provider Department 08/24/24 FARHEEN VALENTINE During your visit today, we recorded the following information about you: Farheen Valentine RN 08/24/2024 3:33 PM Signed CASE [id number]: Spoke with patient, states he saw urology this week and stent was placed. Patient states he has decided not to do the study and would like to follow in [place] for chemo if possible. Aware Dr Christianson will be notified. Allergies As of Date: 08/24/2024 (No Known Allergies) Date Reviewed: 08/21/2024 Reviewed by: Sonja Vargas, ANGELA - Fully Assessed Reason for Visit: CASE [id number] Update [Other] Prescriptions as of 08/24/2024 - amLODIPine (NORVASC) 5 mg tablet Take 5 mg by mouth once daily. - enillwfgawt-feqyrjfxp-y ilanter (TRELEGY ELLIPTA) 200-62.5-25 mcg inhalation powder Inhale 1 puff as instructed once daily. - oxyCODONE IR (ROXICODONE) 5 mg immediate release tablet Take 1-2 tablets by mouth every 8 hours as needed for up to 9 doses. - acetaminophen (TYLENOL) 325 mg tablet Take 2 tablets by mouth every 4 hours. - docusate sodium (COLACE) 100 mg capsule Take 1 capsule by mouth twice daily. - rosuvastatin (CRESTOR) 5 mg tablet Take 5 mg by mouth once daily. - iv contrast (will be provided with radiology test) CT Cardiac - No IV access, insert saline lock prior to the sedation, infusion, injection for imaging exam. Discontinue saline lock post exam. If Pt. has a central line or IVAD, may access for administration according to line specific nursing protocol. Once exam is complete flush line and de-access according to line specific nursing protocol in the CT contrast administration guidelines link. - Omeprazole 40 mg capsule Take 1 capsule by mouth once daily. - aspirin 81 mg chewable tablet Take 1 tablet by mouth once daily. - albuterol HFA (PROAIR HFA) 90 mcg/actuation inhaler Inhale 2 Puffs as instructed every 4 hours as needed for Wheezing/Shortness of Breath. - metoprolol tartrate, short acting, (LOPRESSOR) 25 mg tablet Take 0.5 tablets by mouth every 12 hours. Problem List As Of Date 08/24/2024 Noted Resolved CONTUSION OF FOREARM [S50.10XA] 08/09/2005 08/09/2005 Umbilical hernia without mention of obstruction*06/08/2012 Bilateral inguinal hernia [K40.20] 06/08/2012 Carpal tunnel syndrome of right wrist [G56.01] 06/08/2012 Aortic stenosis [I35.0] Smoking history [Z87.891] 09/07/2012 Hematuria [R31.9] 09/07/2012 Abdominal aortic aneurysm (HCC) [I71.40] 09/07/2012 10/27/2012 Coronary artery disease involving coronary bypa*02/06/2019 Essential hypertension [I10] 02/06/2019 Hyperlipidemia [E78.5] 02/06/2019 AAA (abdominal aortic aneurysm) without rupture*02/06/2019 Discharge planning issues [Z75.8] 02/09/2019 Preop testing [Z01.818] 02/09/2019 Atelectasis [J98.11] 02/12/2019 Acute blood loss anemia [D62] 02/12/2019 02/15/2019 Stress hyperglycemia [R73.9] 02/12/2019 12/30/2021 Fluid overload [E87.70] 02/14/2019 Thrombocytopenia (HCC) [D69.6] 02/14/2019 02/15/2019 Postoperative anemia [D64.9] 02/14/2019 02/15/2019 Transition of care performed with sharing of cl*02/15/2019 Current smoker [F17.200] 02/17/2019 Juxtarenal ruptured abdominal aortic aneurysm (*12/28/2021 Hx of CABG [Z95.1] 12/28/2021 Centrilobular emphysema (HCC) [J43.2] 12/28/2021 PUD (peptic ulcer disease) [K27.9] 12/28/2021 Postoperative pain [G89.18] 12/29/2021 Red blood cell antibody positive [R76.8] 12/30/2021 Type 2 diabetes mellitus without complication, *08/16/2024 CKD (chronic kidney disease) [N18.9] 08/16/2024 Encounter Status:Closed by FARHEEN VALENTINE on 08/24/24 [facility] 08-22-2024 CNPN Telephone (MIGUEL A CASTILLO) ABELARDO IVORY ([id number]) 1950 Date Time Provider Department 08/22/24 FARHEEN VALENTINE MIGUEL A JONATHAN During your visit today, we recorded the following information about you: Farheen Valentine RN 08/22/2024 12:24 PM Signed CASE [id number]: Left message on voicemail for pt to return call Allergies As of Date: 08/22/2024 (No Known Allergies) Date Reviewed: 08/21/2024 Reviewed by: Sonja Vargas, ANGELA - Fully Assessed Reason for Visit: CASE [id number] Discussion [Other] Prescriptions as of 08/22/2024 - amLODIPine (NORVASC) 5 mg tablet Take 5 mg by mouth once daily. - mzkjtbezhjb-sgtpvzrnn-n ilanter (TRELEGY ELLIPTA) 200-62.5-25 mcg inhalation powder Inhale 1 puff as instructed once daily. - oxyCODONE IR (ROXICODONE) 5 mg immediate release tablet Take 1-2 tablets by mouth every 8 hours as needed for up to 9 doses. - acetaminophen (TYLENOL) 325 mg tablet Take 2 tablets by mouth every 4 hours. - docusate sodium (COLACE) 100 mg capsule Take 1 capsule by mouth twice daily. - rosuvastatin (CRESTOR) 5 mg tablet Take 5 mg by mouth once daily. - iv contrast (will be provided with radiology test) CT Cardiac - No IV access, insert saline lock prior to the sedation, infusion, injection for imaging exam. Discontinue saline lock post exam. If Pt. has a central line or IVAD, may access for administration according to line specific nursing protocol. Once exam is complete flush line and de-access according to line specific nursing protocol in the CT contrast administration guidelines link. - Omeprazole 40 mg capsule Take 1 capsule by mouth once daily. - aspirin 81 mg chewable tablet Take 1 tablet by mouth once daily. - albuterol HFA (PROAIR HFA) 90 mcg/actuation inhaler Inhale 2 Puffs as instructed every 4 hours as needed for Wheezing/Shortness of Breath. - metoprolol tartrate, short acting, (LOPRESSOR) 25 mg tablet Take 0.5 tablets by mouth every 12 hours. Problem List As Of Date 08/22/2024 Noted Resolved CONTUSION OF FOREARM [S50.10XA] 08/09/2005 08/09/2005 Umbilical hernia without mention of obstruction*06/08/2012 Bilateral inguinal hernia [K40.20] 06/08/2012 Carpal tunnel syndrome of right wrist [G56.01] 06/08/2012 Aortic stenosis [I35.0] Smoking history [Z87.891] 09/07/2012 Hematuria [R31.9] 09/07/2012 Abdominal aortic aneurysm (HCC) [I71.40] 09/07/2012 10/27/2012 Coronary artery disease involving coronary bypa*02/06/2019 Essential hypertension [I10] 02/06/2019 Hyperlipidemia [E78.5] 02/06/2019 AAA (abdominal aortic aneurysm) without rupture*02/06/2019 Discharge planning issues [Z75.8] 02/09/2019 Preop testing [Z01.818] 02/09/2019 Atelectasis [J98.11] 02/12/2019 Acute blood loss anemia [D62] 02/12/2019 02/15/2019 Stress hyperglycemia [R73.9] 02/12/2019 12/30/2021 Fluid overload [E87.70] 02/14/2019 Thrombocytopenia (HCC) [D69.6] 02/14/2019 02/15/2019 Postoperative anemia [D64.9] 02/14/2019 02/15/2019 Transition of care performed with sharing of cl*02/15/2019 Current smoker [F17.200] 02/17/2019 Juxtarenal ruptured abdominal aortic aneurysm (*12/28/2021 Hx of CABG [Z95.1] 12/28/2021 Centrilobular emphysema (HCC) [J43.2] 12/28/2021 PUD (peptic ulcer disease) [K27.9] 12/28/2021 Postoperative pain [G89.18] 12/29/2021 Red blood cell antibody positive [R76.8] 12/30/2021 Type 2 diabetes mellitus without complication, *08/16/2024 CKD (chronic kidney disease) [N18.9] 08/16/2024 Encounter Status:Closed by FARHEEN VALENTINE on 08/22/24 Normal [facility] ANES POSTPROC EVALon 025 ANES POSTPROC EVAL HNO ID: [id number] Author: KALEIGH BENITES MD Service: Anesthesiology Author Type: Physician Type: Anesthesia Postprocedure Evaluation Filed: 08/21/2024 15:39 Note Text: POST ANESTHESIA EVALUATION NOTE : 1950 Procedure Summary Date: 08/21/24 Room / Location: [place] OR 18 / [place] OR Anesthesia Start: 1501 Anesthesia Stop: 1534 Procedure: CYSTOSCOPY RIGID (Bladder) Diagnosis: Malignant neoplasm of urinary bladder, unspecified site (HCC) Gross hematuria (Malignant neoplasm of urinary bladder, unspecified site (HCC) [C67.9]) (Gross hematuria [R31.0]) Surgeons: Stacy Gauthier MD Responsible Provider: Kaleigh Benites MD Anesthesia Type: general ASA Status: 3 Anesthesia Type: general Airway Type: LMA Last Vitals Vitals Value Taken Time BP 119/71 08/21/24 1534 Temp 08/21/24 1538 Pulse 70 08/21/24 1538 Resp 16 08/21/24 1538 SpO2 100 % 08/21/24 1538 Vitals shown include unfiled device data. Post Anesthesia Patient Status Anticipated Disposition: phase 2 then home. Neurological Status: aware and responsive. Pulmonary Status: breathing comfortably on supplemental oxygen Airway Control: returned to baseline unsupported. Cardiovascular Status: stable. Pain Management: clinically adequate Postoperative Hydration: acceptable. Intraoperative Events: no significant anesthesia events Post Operative Nausea/Vomiting Status: no significant post operative nausea or vomiting Recommendation: further care per PACU/ICU/floor team. Anesthesia Observations No Documentation SIGNATURE: Kaleigh Benites MD PATIENT NAME: Abelardo Ivory DATE: August 21, 2024 TIME: 3:38 PM CSN: [id number] Normal [facility] ANES PRE-OPon 08-21-2024 ANES PRE-OP HNO ID: [id number] Author: LAUREN ARTHUR MD Service: Anesthesiology Author Type: Anesthesiologist Type: Anesthesia Preprocedure Evaluation Filed: 08/21/2024 14:20 Note Text: ANESTHESIOLOGY DAY OF SURGERY NOTE : 1950 Procedure Information Date/Time: 08/21/241524 Procedures: CYSTOSCOPY RIGID (Bladder) EXCISION BLADDER TUMOR SMALL (0.5 UP TO 2.0 CM) (Bladder) INSERTION STENT DOUBLE J (Left: Ureter) Location: [facility] OR 18 / [facility] Surgeons: Stacy Gauthier MD Estimated body mass index is 25.26 kg/m? as calculated from the following: Height as of 08/16/24: 167.6 cm (5' 5.98). Weight as of 08/16/24: 70.9 kg (156 lb 6.4 oz). Most recent hematocrit and potassium results: Hematocrit 38.1 07/26/2024 Potassium 4.9 07/26/2024 Relevant Problems CARDIO (+) AAA (abdominal aortic aneurysm) without rupture (+) Aortic stenosis (+) 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lummi heart without angina pectoris (+) Essential hypertension (+) Hx of CABG (+) Juxtarenal ruptured abdominal aortic aneurysm (AAA) (HCC) ENDO (+) Type 2 diabetes mellitus without complication, without long-term current use of insulin (HCC) GI (+) PUD (peptic ulcer disease) -RENAL (+) CKD (chronic kidney disease) PULMONARY (+) Centrilobular emphysema (HCC) I - PHYSICAL EVALUATION AIRWAY Patient intubated: No. Tracheostomy tube not present Mallampati: III. TM distance: >3 FB. Neck ROM: full ROM without neurological symptoms. Mouth opening: adequate. Short neck: no. Thick neck: no Dixon present: yes DENTAL Dental findings: poor dentition and missing tooth/teeth. II - ANESTHESIA PLAN ASA Score: 3 Anesthetic Plan: general Airway type: LMA NPO Status: adequate Beta Jami Monitoring Plan Monitoring plan: standard ASA. Post Procedure Analgesic Plan Postoperative analgesic plan: parenteral or oral opioids, multimodal analgesia and per surgical service. Informed Consent Anesthetic risks, benefits, alternatives, personnel and consent discussed: yes. Patient / Responsible Constitution Party agrees to proceed: yes Patient / Surrogate agrees to blood products: Yes Vitals Value Taken Time BP 115/65 08/21/24 1402 Pulse 61 08/21/24 1402 Resp 18 08/21/24 1402 Temp 36.1 ?C (97 ?F) 08/21/24 1402 SpO2 97 % 08/21/24 1402 Facility-Administered Medications as of 08/21/2024 Medication Dose Route Frequency lactated ringers iv infusion 5-30 mL/hr INTRAVENOUS CONTINUOUS Outpatient Medications as of 08/21/2024 Medication Sig acetaminophen (TYLENOL) 325 mg tablet Take 2 tablets by mouth every 4 hours. rosuvastatin (CRESTOR) 5 mg tablet Take 5 mg by mouth once daily. metoprolol tartrate, short acting, (LOPRESSOR) 25 mg tablet Take 0.5 tablets by mouth every 12 hours. oxyCODONE IR (ROXICODONE) 5 mg immediate release tablet Take 1-2 tablets by mouth every 8 hours as needed for up to 9 doses. (Patient not taking: Reported on 02/03/2022) docusate sodium (COLACE) 100 mg capsule Take 1 capsule by mouth twice daily. (Patient not taking: Reported on 02/03/2022) iv contrast (will be provided with radiology test) CT Cardiac - No IV access, insert saline lock prior to the sedation, infusion, injection for imaging exam. Discontinue saline lock post exam. If Pt. has a central line or IVAD, may access for administration according to line specific nursing protocol. Once exam is complete flush line and de-access according to line specific nursing protocol in the CT contrast administration guidelines link. (Patient not taking: Reported on 04/17/2021) Omeprazole 40 mg capsule Take 1 capsule by mouth once daily. (Patient not taking: Reported on 08/16/2024) aspirin 81 mg chewable tablet Take 1 tablet by mouth once daily. albuterol HFA (PROAIR HFA) 90 mcg/actuation inhaler Inhale 2 Puffs as instructed every 4 hours as needed for Wheezing/Shortness of Breath. I have interviewed and examined the patient. I have reviewed the medical record and/or the pre-anesthesia evaluation, pertinent labs, and test results. This contains updated information obtained within 48 hours of Surgery/Procedure. SIGNATURE: Lauren Arthur MD PATIENT NAME: Abelardo Ivory DATE: August 21, 2024 TIME: 2:20 PM CSN: [id number] [facility] 08-21-2024 CNPN Telephone (UROLAE) ABELARDO IVORY ([id number]) 1950 M Date Time Provider Department 08/21/24 STACY GAUTHIER During your visit today, we recorded the following information about you: Stacy Gauthier MD 08/21/2024 4:04 PM Signed Unable to find left orifice, pt asymptomatic and only mild hydro on CT so may be draining. To have XRT/immunoTx @ main - check CT flank and blood work mid Sep to assess hydro, if worse then will need PNT (discussed with dtr)- we can review results on phone as they live in [place] MD Avni Rosales Margaret 08/22/2024 11:10 AM Signed Lm to call. Earnestine Glover 08/24/2024 11:11 AM Signed Spoke with patient and daughter ct scheduled they are aware of date, time and location for scan as well as prep instructions that my apply, will have blood work done on the same day. Earnestine Holly Coord Allergies As of Date: 08/21/2024 (No Known Allergies) Date Reviewed: 08/21/2024 Reviewed by: Sonja Vargas RN - Fully Assessed Reason for Visit: Surgical Followup [104] Orders [681] Primary Visit Diagnosis:Malignant neoplasm of urinary bladder, unspecified site (HCC) [C67.9] Other Visit Diagnosis:Other hydronephrosis [N13.39] Order(s):CT ABD/PEL WO IVCON [[id number]] Order #: [id number] FUTURE BASIC METABOLIC PANEL [SQBMP] Order #: [id number] FUTURE Prescriptions as of 08/24/2024 - amLODIPine (NORVASC) 5 mg tablet Take 5 mg by mouth once daily. - umpguxnxglb-jfmvblnkt-e ilanter (TRELEGY ELLIPTA) 200-62.5-25 mcg inhalation powder Inhale 1 puff as instructed once daily. - oxyCODONE IR (ROXICODONE) 5 mg immediate release tablet Take 1-2 tablets by mouth every 8 hours as needed for up to 9 doses. - acetaminophen (TYLENOL) 325 mg tablet Take 2 tablets by mouth every 4 hours. - docusate sodium (COLACE) 100 mg capsule Take 1 capsule by mouth twice daily. - rosuvastatin (CRESTOR) 5 mg tablet Take 5 mg by mouth once daily. - iv contrast (will be provided with radiology test) CT Cardiac - No IV access, insert saline lock prior to the sedation, infusion, injection for imaging exam. Discontinue saline lock post exam. If Pt. has a central line or IVAD, may access for administration according to line specific nursing protocol. Once exam is complete flush line and de-access according to line specific nursing protocol in the CT contrast administration guidelines link. - Omeprazole 40 mg capsule Take 1 capsule by mouth once daily. - aspirin 81 mg chewable tablet Take 1 tablet by mouth once daily. - albuterol HFA (PROAIR HFA) 90 mcg/actuation inhaler Inhale 2 Puffs as instructed every 4 hours as needed for Wheezing/Shortness of Breath. - metoprolol tartrate, short acting, (LOPRESSOR) 25 mg tablet Take 0.5 tablets by mouth every 12 hours. Problem List As Of Date 08/21/2024 Noted Resolved CONTUSION OF FOREARM [S50.10XA] 08/09/2005 08/09/2005 Umbilical hernia without mention of obstruction*06/08/2012 Bilateral inguinal hernia [K40.20] 06/08/2012 Carpal tunnel syndrome of right wrist [G56.01] 06/08/2012 Aortic stenosis [I35.0] Smoking history [Z87.891] 09/07/2012 Hematuria [R31.9] 09/07/2012 Abdominal aortic aneurysm (HCC) [I71.40] 09/07/2012 10/27/2012 Coronary artery disease involving coronary bypa*02/06/2019 Essential hypertension [I10] 02/06/2019 Hyperlipidemia [E78.5] 02/06/2019 AAA (abdominal aortic aneurysm) without rupture*02/06/2019 Discharge planning issues [Z75.8] 02/09/2019 Preop testing [Z01.818] 02/09/2019 Atelectasis [J98.11] 02/12/2019 Acute blood loss anemia [D62] 02/12/2019 02/15/2019 Stress hyperglycemia [R73.9] 02/12/2019 12/30/2021 Fluid overload [E87.70] 02/14/2019 Thrombocytopenia (HCC) [D69.6] 02/14/2019 02/15/2019 Postoperative anemia [D64.9] 02/14/2019 02/15/2019 Transition of care performed with sharing of cl*02/15/2019 Current smoker [F17.200] 02/17/2019 Juxtarenal ruptured abdominal aortic aneurysm (*12/28/2021 Hx of CABG [Z95.1] 12/28/2021 Centrilobular emphysema (HCC) [J43.2] 12/28/2021 PUD (peptic ulcer disease) [K27.9] 12/28/2021 Postoperative pain [G89.18] 12/29/2021 Red blood cell antibody positive [R76.8] 12/30/2021 Type 2 diabetes mellitus without complication, *08/16/2024 CKD (chronic kidney disease) [N18.9] 08/16/2024 Encounter Status:Closed by STACY GAUTHIER on 08/21/24 Normal [facility] OPERATIVE NOon 08-21-2024 OPERATIVE NO HNO ID: [id number] Author: STACY GAUTHIER MD Service: Urology Author Type: Physician Type: Operative Report Filed: 08/22/2024 03:14 Note Text: OPERATIVE/PROCEDURE REPORT LOG ID: [id number] SURGERY/PROCEDURE DATE: 08/21/2024 INCISION/PROCEDURE START TIME: 3:16 PM INCISION CLOSE/PROCEDURE END TIME: 3:26 PM SURGEON(S)/PROCEDURALIS T(S) AND CLOSING AGENT(S): Surgeons and Role: * Stacy Gauthier MD - Primary * Stacy Jesus DO - Resident - Assisting No Additional Staff SURGERY/PROCEDURE(S): Cystoscopy ANESTHESIA: General SURGERY/PROCEDURE DETAILS: Abelardo Ivory is a 74 year old patient who presents with history of T2 bladder cancer s/p previous TURBT at outside facility. After having a discussion on treatment options, risks and benefits, the patient wishes to proceed forward with surgical intervention. Patient was brought to the operating room and identified using name band/number. A thorough time out was performed and everyone present was in agreement. Patient was placed on OR table. Anesthesia and lines were maintained by the anesthesia team. Patient was placed in the dorsal lithotomy position, prepped with Betadine, and draped in the usual sterile fashion. Pressure points were padded. SCDs were on and functioning prior to the beginning of the procedure. A cystourethroscope was inserted transurethrally into the bladder. There were no urethral strictures present. Pancystoscopy demonstrated large amount of necrotic tissue starting at the bladder involving the majority of the trigone. No left ureteral orifice was able to be visualized. There were trabeculations noted. Despite attempts to find Uo's, they were not able to be visualized or cannulated for retrograde pyelogram or stent insertion. The patient's bladder was emptied, and the cystoscope was removed. Patient awoken from anesthesia having tolerated the procedure well. Abelardo Ivory Was transferred to recovery room. Plan for outpatient L PNT with antegrade stent. PRE-OP/PRE-PROCEDURE DIAGNOSIS: left hydronephrosis POST-OP/POST-PROCEDURE DIAGNOSIS: same ESTIMATED BLOOD LOSS: 0 ml SPECIMENS: None IMPLANTABLE DEVICES: NONE DRAINS: None COMPLICATIONS: None Stacy Jesus DO Urology PGY-2 08/21/2024 3:41 PM Normal [facility] Bacteria Ur Culton 5 Bacteria identified Cx Nom (U) CULTURE, URINE: No growth (<1,000 CFU/ml) Normal [facility] Comment on above: Performed By: #### 6 30-4 #### [facility] CLIA [id number] [address] [place] [address] [place] HISTORY PHYSICALon 5 HISTORY PHYSICAL HNO ID: [id number] Author: CORRINE PICHARDO APRN.MECHANIC Service: ? Author Type: Nurse Practitioner Type: H&P Filed: 08/16/2024 12:18 Note Text: [facility] HISTORY AND PHYSICAL EXAMINATION SERVICE DATE: 08/16/2024 SERVICE TIME: 10:00 AM PRIMARY CARE PHYSICIAN: Padmini Carrasco MD Assessment Patient has the following medical conditions which may affect kirstie-operative course: Preop testing Assessment : See Note for medical conditions which may affect kirstie-operative course was addressed in visit today. 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lummi heart without angina pectoris Assessment: Followed by [facility] - H/O CABG - taking aspirin Plan: Patient instructed to notify surgeon and prescriber for preop instructions. 04/17/2021 Stress Test CONCLUSIONS: 1. SPECT Perfusion Study: Normal. 2. There is no scintigraphic evidence for inducible ischemia. 3. No evidence of scarred myocardium. 4. Left ventricle is normal in size. The left ventricle systolic function is normal. 5. Right ventricle is normal in size. The right ventricle systolic function is normal. 6. This is a low risk scan. Gated Stress FBP Gated Rest FBP LVEF % 71 70 12/28/2021 Echo Impression CONCLUSIONS: - Exam indication: Re-evaluation of known ascending aortic dilatation to establish baseline - This is a limited bedside echo performed by the J31 fellow. - LV and RV systolic function preserved and similar to prior echo. - No significant AR, dissection flap in ascending aorta, or pericardial effusion noted. - Aortic valve prosthesis noted with mild calcification. - For a more detailed study, please obtain a formal TTE. - Exam was compared with the prior echocardiographic exam performed on 09/29/2020 ([place]). Limited study. Essential hypertension Assessment: taking taking metoprolol; amlodipine Hyperlipidemia Assessment: taking rosuvastatin 5 mg daily Centrilobular emphysema (HCC) Assessment: Albuterol as needed; Trelegy as scheduled. Patient denies hospitalizations or pneumonia within 6 weeks. Type 2 diabetes mellitus without complication, without long-term current use of insulin (HCC) Assessment: Diet controlled CKD (chronic kidney disease) Assessment: 08/01/2024 BUN/Cr 34/1.54 ANESTHESIA FINDINGS: Intubation History: No history of difficult intubation Significant Anesthesia Considerations: none Airway History: No history of difficult airway Smith Activity Status Index: METS: Climb a flight of stairs or walk up a hill (5.50 METs) DASI Score: 5.5 Patient denies any chest pain or undue shortness of breath with the above physical activity. Clinical Frailty Scale: 3. Well, with treated comorbid disease ARISCAT Score: Age: 51-80 Preoperative SpO2: >=96% Respiratory infection in the last month: No Preoperative anemia: No Surgical incision: peripheral Duration of surgery: <2 hrs Emergency procedure: No ARISCAT Score: 3 I - PHYSICAL EVALUATION AIRWAY Patient intubated: No. DENTAL Dentures, upper: complete. II - ANESTHESIA PLAN Anesthetic Plan: general Beta Jami Monitoring Plan Post Procedure Analgesic Plan Prepared for Surgery: CONSULTS: Patient does not require consults for optimization at this time Planned Anesthetic: general The Following Tests/Procedures Have Been Initiated: Orders Placed This Encounter amLODIPine (NORVASC) 5 mg tablet Sig: Take 5 mg by mouth once daily. lkulywgwwis-shvzzkevk-n ilanter (TRELEGY ELLIPTA) 200-62.5-25 mcg inhalation powder Sig: Inhale 1 puff as instructed once daily. REASON FOR VISIT: Abelardo Ivory is a 74 year old male who is scheduled for Procedure(s): CYSTOSCOPY RIGID (N/A) EXCISION BLADDER TUMOR SMALL (0.5 UP TO 2.0 CM) (N/A) INSERTION STENT DOUBLE J (Left) at the request of Dr. Stacy Gauthier for routine HANDP. My final recommendation will be communicated back to the requesting physician by way of shared medical record or letter. The reason for this visit is to perform a comprehensive review of the patient's past medical history, assess their current health status and obtain any additional testing required based on anesthesia guidelines. We will also identify any potential anesthesia problems or contraindications to the planned procedure. Subjective The patient has the following: COVID-19 Immunization Status Current Care Gaps Covid-19 Vaccine ( season) Never done No completion, postpone, frequency change, or communication history exists for this topic. CHIEF COMPLAINT: Urinary bladder cancer HPI: Patient reports history of urinary bladder cancer. He reports he had a bladder resection in June 2023 at [facility]. Today, he denies pain, rating 0 out of 10 on numeric pain scale. (more content not included)... [facility] (MIGUEL A CASTILLO) ABELARDO IVORY ([id number]) 1950 Date Time Provider Department 08/03/24 FARHEEN VALENTINE During your visit today, we recorded the following information about you: Farheen Valentine, RN 08/03/2024 4:06 PM Signed CASE [id number]: Spoke with patient, states he is still undecided regarding the study. States he is seeing urology locally and will need a stent. Patient states he should find out next week when that will be placed. Discussed travel/lodging and let patient know SW can be of assistance as well as looking into his insurance. Patient requested a call back after 10 of August hol. Patient will need repeat TURBT at [facility] due to previously being done at [facility]. Allergies As of Date: 08/03/2024 (No Known Allergies) Date Reviewed: 08/02/2024 Reviewed by: Marii Quick MA - Fully Assessed Reason for Visit: CASE [id number] Follow Up [Other] Prescriptions as of 08/03/2024 - oxyCODONE IR (ROXICODONE) 5 mg immediate release tablet Take 1-2 tablets by mouth every 8 hours as needed for up to 9 doses. - acetaminophen (TYLENOL) 325 mg tablet Take 2 tablets by mouth every 4 hours. - docusate sodium (COLACE) 100 mg capsule Take 1 capsule by mouth twice daily. - rosuvastatin (CRESTOR) 5 mg tablet Take 5 mg by mouth once daily. - iv contrast (will be provided with radiology test) CT Cardiac - No IV access, insert saline lock prior to the sedation, infusion, injection for imaging exam. Discontinue saline lock post exam. If Pt. has a central line or IVAD, may access for administration according to line specific nursing protocol. Once exam is complete flush line and de-access according to line specific nursing protocol in the CT contrast administration guidelines link. - Omeprazole 40 mg capsule Take 1 capsule by mouth once daily. - aspirin 81 mg chewable tablet Take 1 tablet by mouth once daily. - albuterol HFA (PROAIR HFA) 90 mcg/actuation inhaler Inhale 2 Puffs as instructed every 4 hours as needed for Wheezing/Shortness of Breath. - metoprolol tartrate, short acting, (LOPRESSOR) 25 mg tablet Take 0.5 tablets by mouth every 12 hours. Problem List As Of Date 08/03/2024 Noted Resolved CONTUSION OF FOREARM [S50.10XA] 08/09/2005 08/09/2005 Umbilical hernia without mention of obstruction*06/08/2012 Bilateral inguinal hernia [K40.20] 06/08/2012 Carpal tunnel syndrome of right wrist [G56.01] 06/08/2012 Aortic stenosis [I35.0] Smoking history [Z87.891] 09/07/2012 Hematuria [R31.9] 09/07/2012 Abdominal aortic aneurysm (HCC) [I71.40] 09/07/2012 10/27/2012 Coronary artery disease involving coronary bypa*02/06/2019 Essential hypertension [I10] 02/06/2019 Hyperlipidemia [E78.5] 02/06/2019 AAA (abdominal aortic aneurysm) without rupture*02/06/2019 Discharge planning issues [Z75.8] 02/09/2019 Preop testing [Z01.818] 02/09/2019 Atelectasis [J98.11] 02/12/2019 Acute blood loss anemia [D62] 02/12/2019 02/15/2019 Stress hyperglycemia [R73.9] 02/12/2019 12/30/2021 Fluid overload [E87.70] 02/14/2019 Thrombocytopenia (HCC) [D69.6] 02/14/2019 02/15/2019 Postoperative anemia [D64.9] 02/14/2019 02/15/2019 Transition of care performed with sharing of cl*02/15/2019 Current smoker [F17.200] 02/17/2019 Juxtarenal ruptured abdominal aortic aneurysm (*12/28/2021 Hx of CABG [Z95.1] 12/28/2021 Centrilobular emphysema (HCC) [J43.2] 12/28/2021 PUD (peptic ulcer disease) [K27.9] 12/28/2021 Postoperative pain [G89.18] 12/29/2021 Red blood cell antibody positive [R76.8] 12/30/2021 Encounter Status:Closed by FARHEEN VALENTINE on 08/03/24 [facility] CNOVon 08-02-2024 CNOV Office Visit (UROLAE ) ABELARDO IVORY ([id number]) 1950 M Date Time Provider Department 08/02/24 2:15 PM STACY GAUTHIER During your visit today, we recorded the following information about you: Pulse Weight Height 65/minute 70.8 kg 1.676 m Stacy Gauthier MD 08/21/2024 4:01 PM Addendum NEW PATIENT HISTORY AND PHYSICAL EXAM HISTORY OF PRESENT ILLNESS No chief complaint on file. Abelardo Ivory is a 74 year old male who presents w/dtr as a new patient for evaluation of remote h/o bladder cancer He underwent aortic valve replacement and coronary artery bypass grafting in 2019, during which a blocked artery was addressed. AAA repair 2021. Smokes 1/2 ppd, in the past 1-1.5 ppd since age 15 years LAB RESULTS Creatinine Date Value Ref Range Status 07/26/2024 1.54 (H) 0.73 - 1.22 mg/dL Final PSA (ng/mL) Date Value 09/07/2012 0.46 Color (no units) Date Value 02/06/2019 Yellow Clarity (no units) Date Value 02/06/2019 Clear Glucose, Urine (mg/dL) Date Value 02/06/2019 Negative Bilirubin, Urine (no units) Date Value 02/06/2019 Negative Ketones, Urine (no units) Date Value 02/06/2019 Negative Specific [place], Ur (no units) Date Value 02/06/2019 1.017 Hemoglobin/Blood,Ur ( ) Date Value 02/06/2019 1+ pH, Urine (no units) Date Value 02/06/2019 6.0 Protein, Urine (mg/dL) Date Value 02/06/2019 Negative Urobilinogen (no units) Date Value 02/06/2019 Normal Nitrites (no units) Date Value 02/06/2019 Negative Leukest (no units) Date Value 02/06/2019 Negative REVIEW OF SYSTEMS (10) ALLERGIC See allergies listed above GENERAL:no unintentional weight loss, healthy appearing male in no distress RESPIRATORY: Negative for cough, wheezing or shortness of breath. CARDIOVASCULAR: occ leg swelling/edema. GASTROINTESTINAL: no nausea/emesis GENITOURINARY: nocturia MUSCULOSKELETAL: Not complaining of muscle pain NEUROLOGIC:alert and oriented SKIN warm and dry PSYCHIATRIC: not complaining of depression/anxiety The remainder of the ROS was reviewed and is negative. MEDICATIONS: oxyCODONE IR (ROXICODONE) 5 mg immediate release tablet Take 1-2 tablets by mouth every 8 hours as needed for up to 9 doses. (Patient not taking: Reported on 02/03/2022) acetaminophen (TYLENOL) 325 mg tablet Take 2 tablets by mouth every 4 hours. docusate sodium (COLACE) 100 mg capsule Take 1 capsule by mouth twice daily. (Patient not taking: Reported on 02/03/2022) rosuvastatin (CRESTOR) 5 mg tablet Take 5 mg by mouth once daily. iv contrast (will be provided with radiology test) CT Cardiac - No IV access, insert saline lock prior to the sedation, infusion, injection for imaging exam. Discontinue saline lock post exam. If Pt. has a central line or IVAD, may access for administration according to line specific nursing protocol. Once exam is complete flush line and de-access according to line specific nursing protocol in the CT contrast administration guidelines link. (Patient not taking: No sig reported) Omeprazole 40 mg capsule Take 1 capsule by mouth once daily. aspirin 81 mg chewable tablet Take 1 tablet by mouth once daily. albuterol HFA (PROAIR HFA) 90 mcg/actuation inhaler Inhale 2 Puffs as instructed every 4 hours as needed for Wheezing/Shortness of Breath. metoprolol tartrate, short acting, (LOPRESSOR) 25 mg tablet Take 0.5 tablets by mouth every 12 hours. ALLERGIES No Known Allergies HISTORIES 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 Hyperlipidemia Juxtarenal ruptured abdominal aortic aneurysm (AAA) 12/28/2021 PMH - PAST MEDICAL HISTORY OF 1979 left wrist fracture PUD (peptic ulcer disease) PAST SURGICAL HISTORY Procedure Laterality Date CABG (1) VEIN GRAFT AND ARTERIAL GRAFT 02/12/2019 AVR and CABG x1 PAST SURGICAL HISTORY OF cyst removed from back FAMILY HISTORY Problem Relation Age of Onset Diabetes Mother Emphysema Mother Asthma Sister Cancer Brother Aneurysm No Family History SOCIAL HISTORY Social History Tobacco Use Smoking status: Every Day Current packs/day: 0.00 Average packs/day: 1 pack/day for 40.0 years (40.0 ttl pk-yrs) Types: Cigarettes Start date: 01/30/1979 Last attempt to quit: 01/30/2019 Years since quittin.5 Smokeless tobacco: Never Tobacco comments: started smoking 15yo, usually 1 PPD Vaping Use Vaping status: Never Used Substance Use Topics Alcohol use: No Drug use: No There were no vitals taken for this visit. PHYSICAL EXAM: (8) General Appearance: Well appearing, alert, in no acute distress, well-hydra (more content not included)... Normal [facility] UA DIP, URINE (POC)on 2024 BILIRUBIN UA (POCT) Negative Negative [facility] CLARITY UA (POCT) Clear [facility] COLOR UA (POCT) Yellow [facility] GLUCOSE UA (POCT) Negative Negative mg/dL [facility] Hemoglobin Ql (U) Moderate Abnormal Negative [facility] Interpretation and review of laboratory results Abnormal [facility] KETONE UA (POCT) Negative Negative mg/dL [facility] LEUKOCYTES UA (POCT) Trace Abnormal Negative [facility] NITRITE UA (POCT) Negative Negative [facility] PH UA (POCT) 5.5 4.5 - 8.0 [facility] Protein Ql (U) 100 mg/dL Abnormal Negative [facility] SPECIFIC GRAVITY UA (POCT) 1.02 1.005 - 1.030 [facility] UROBILINOGEN UA (POCT) 0.2 Margaret l E.U./dL [facility] Location:[facility] Urology Dept, [address] [place] [address] POINT OF CARE [facility] CT ABD/PEL W IVCONon 025 CT ABD/PEL W IVCON * * *Final Report* * * DATE OF EXAM: Jul 31 2024 2:11PM [facility]30 - CT ABD/PEL W IVCON / PROCEDURE REASON: Malignant neoplasm of urinary bladder, unspecified site (HCC) * * * * Physician Interpretation * * * * EXAMINATION: CT ABDOMEN AND PELVIS WITH IV CONTRAST CLINICAL HISTORY: Urinary bladder carcinoma. TECHNIQUE: CT of the abdomen and pelvis was performed using standard technique, scanning from just above the dome of the diaphragm to the symphysis pubis. MQ: CTAP_3 Contrast: IV: 100 ml of Omnipaque 350 Oral: 10 ml of Omni 240 10-25ml diluted with water CT Radiation dose: Integrated Dose-length product (DLP) for this visit = 636 mGy*cm. CT Dose Reduction Employed: Automated exposure control(AEC) and iterative recon COMPARISON: CT 2021, 06/21/[address] RESULT: Liver: No mass. Stable scattered benign calcifications. Biliary: No bile duct dilation. Gallbladder is unremarkable. Spleen: No mass. No splenomegaly. Stable scattered benign calcifications. Pancreas: No mass or duct dilation. Adrenals: No mass. Kidneys: No mass, calculus. Mild left hydroureteronephrosis secondary to obstruction of left vesicoureteral junction by urinary bladder mass (12:112). GI tract: No dilation or wall thickening. Colonic diverticulosis. No diverticulitis. Lymph nodes: Prominent aortocaval lymph nodes, measuring 0.6 cm (12:65) and 0.7 cm (12:53). Mesentery/Peritoneum: No ascites or mass. Retroperitoneum: No mass. Vasculature: * Stable status post graft repair of abdominal aortic aneurysm. * Tethering of left posterior lateral aneurysmal sac to left posterior pararenal fascia (12:64). * Mild angulation with tethering of left ureter to left lateral aneurysmal sac (12:78). * Stable ectatic left common iliac artery measuring up to 2 cm (13:60). Pelvis: * Thickening involving left posterior lateral urinary bladder wall measuring up to 2.1 cm (12:112) with involvement of left vesicoureteral junction and upstream mild hydroureteronephrosis. Thickened bladder trigone with possible involvement of right vesicoureteral junction (12:112) and mild upstream ureteral prominence. * Left perivesicular stranding (12:112). * Prostatic calcifications. Bones/Soft Tissues: Degenerative changes. Partial chronic superior endplate collapse of L2. No suspicious osseous lesions. Lower thorax: A chest CT performed will be reported separately. Localizer images: No additional findings. IMPRESSION: Wall thickening along bladder trigone compatible with urothelial cancer. No abdominopelvic metastasis. Banquet Supervisor: JESUS ALBERTO Transcribe Date/Time: Jul 31 2024 3:04P Dictated by : CARLINE CHAPMAN MD This examination was interpreted and the report reviewed and electronically signed by: PADMINI BRUSH MD on Jul 31 2024 8:26PM EST [id number] Normal [facility] CT Abdomen and Pelvis W cont rast Darci 07-31-2024 IMPRESSION: Wall thickening along bladder trigone compatible with urothelial cancer. No abdominopelvic metastasis. Banquet Supervisor: [facility] Transcribe Date/Time: Jul 31 2024 3:04P Dictated by : CARLINE CHAPMAN MD This examination was interpreted and the report reviewed and electronically signed by: PADMINI BRUSH MD on Jul 31 2024 8:26PM EST DIVISION OF RADIOLOGY * * *Final Report* * * DATE OF EXAM: Jul 31 2024 2:11PM [facility] 0530 - CT ABD/PEL W IVCON / PROCEDURE REASON: Malignant neoplasm of urinary bladder, unspecified site (HCC) * * * * Physician Interpretation * * * * EXAMINATION: CT ABDOMEN AND PELVIS WITH IV CONTRAST CLINICAL HISTORY: Urinary bladder carcinoma. TECHNIQUE: CT of the abdomen and pelvis was performed using standard technique, scanning from just above the dome of the diaphragm to the symphysis pubis. MQ: CTAP_3 Contrast: IV: 100 ml of Omnipaque 350 Oral: 10 ml of Omni 240 10-25ml diluted with water CT Radiation dose: Integrated Dose-length product (DLP) for this visit = 636 mGy*cm. CT Dose Reduction Employed: Automated exposure control(AEC) and iterative recon COMPARISON: CT 2021, 06/21/[address] RESULT: Liver: No mass. Stable scattered benign calcifications. Biliary: No bile duct dilation. Gallbladder is unremarkable. Spleen: No mass. No splenomegaly. Stable scattered benign calcifications. Pancreas: No mass or duct dilation. Adrenals: No mass. Kidneys: No mass, calculus. Mild left hydroureteronephrosis secondary to obstruction of left vesicoureteral junction by urinary bladder mass (12:112). GI tract: No dilation or wall thickening. Colonic diverticulosis. No diverticulitis. Lymph nodes: Prominent aortocaval lymph nodes, measuring 0.6 cm (12:65) and 0.7 cm (12:53). Mesentery/Peritoneum: No ascites or mass. Retroperitoneum: No mass. Vasculature: * Stable status post graft repair of abdominal aortic aneurysm. * Tethering of left posterior lateral aneurysmal sac to left posterior pararenal fascia (12:64). * Mild angulation with tethering of left ureter to left lateral aneurysmal sac (12:78). * Stable ectatic left common iliac artery measuring up to 2 cm (13:60). Pelvis: * Thickening involving left posterior lateral urinary bladder wall measuring up to 2.1 cm (12:112) with involvement of left vesicoureteral junction and upstream mild hydroureteronephrosis. Thickened bladder trigone with possible involvement of right vesicoureteral junction (12:112) and mild upstream ureteral prominence. * Left perivesicular stranding (12:112). * Prostatic calcifications. Bones/Soft Tissues: Degenerative changes. Partial chronic superior endplate collapse of L2. No suspicious osseous lesions. Lower thorax: A chest CT performed will be reported separately. Localizer images: No additional findings. DIVISION OF RADIOLOGY Provider, [facility] - 07/31/2024 * * *Final Report* * * DATE OF EXAM: Jul 31 2024 2:11PM [facility] 0530 - CT ABD/PEL W IVCON / PROCEDURE REASON: Malignant neoplasm of urinary bladder, unspecified site (HCC) * * * * Physician Interpretation * * * * EXAMINATION: CT ABDOMEN AND PELVIS WITH IV CONTRAST CLINICAL HISTORY: Urinary bladder carcinoma. TECHNIQUE: CT of the abdomen and pelvis was performed using standard technique, scanning from just above the dome of the diaphragm to the symphysis pubis. MQ: CTAP_3 Contrast: IV: 100 ml of Omnipaque 350 Oral: 10 ml of Omni 240 10-25ml diluted with water CT Radiation dose: Integrated Dose-length product (DLP) for this visit = 636 mGy*cm. CT Dose Reduction Employed: Automated exposure control(AEC) and iterative recon COMPARISON: CT 2021, 06/21/[address] RESULT: Liver: No mass. Stable scattered benign calcifications. Biliary: No bile duct dilation. Gallbladder is unremarkable. Spleen: No mass. No splenomegaly. Stable scattered benign calcifications. Pancreas: No mass or duct dilation. Adrenals: No mass. Kidneys: No mass, calculus. Mild left hydroureteronephrosis secondary to obstruction of left vesicoureteral junction by urinary bladder mass (12:112). GI tract: No dilation or wall thickening. Colonic diverticulosis. No diverticulitis. Lymph nodes: Prominent aortocaval lymph nodes, measuring 0.6 cm (12:65) and 0.7 cm (12:53). Mesentery/Peritoneum: No ascites or mass. Retroperitoneum: No mass. Vasculature: * Stable status post graft repair of abdominal aortic aneurysm. * Tethering of left posterior lateral aneurysmal sac to left posterior pararenal fascia (12:64). * Mild angulation with tethering of left ureter to left lateral aneurysmal sac (12:78). * Stable ectatic left common iliac artery measuring up to 2 cm (13:60). Pelvis: * Thickening involving left posterior lateral urinary bladder wall measuring up to 2.1 cm (12:112) with involvement of left vesicoureteral junction and upstream mild hydroureteronephrosis. Thickened bladder trigone with possible involvement of right vesicoureteral junction (12:112) and mild upstream ureteral prominence. * Left perivesicular stranding (12:112). * Prostatic calcifications. Bones/Soft Tissues: Degenerative changes. Partial chronic superior endplate collapse of L2. No suspicious osseous lesions. Lower thorax: A chest CT performed will be reported separately. Localizer images: No additional findings. IMPRESSION IMPRESSION: Wall thickening along bladder trigone compatible with urothelial cancer. No abdominopelvic metastasis. Banquet Supervisor: [facility] Transcribe Date/Time: Jul 31 2024 3:04P Dictated by : CARLINE CHAPMAN MD This examination was interpreted and the report reviewed and electronically signed by: PADMINI BRUSH MD on Jul 31 2024 8:26PM EST [facility] Radiology Study [facility]narrative[facility] Pelvis W cont rast IVOrdered By: [facility] Provider on 07-31-[address] [facility] [address] CHEST W IVCONon CT CHEST W IVCON * * *Final Report* * * DATE OF EXAM: Jul 31 2024 2:11PM [facility] 0539 - CT CHEST W IVCON / PROCEDURE REASON: Malignant neoplasm of urinary bladder, unspecified site (HCC) * * * * Physician Interpretation * * * * EXAMINATION: CHEST CT WITH CONTRAST CLINICAL HISTORY: Malignant neoplasm of urinary bladder Technique: Spiral CT acquisition of the chest from the thoracic inlet to the upper abdomen following IV contrast. MQ: CTCW_6 Contrast: 100 mL Omnipaque [address] Radiation dose: Integrated Dose-length product (DLP) for this visit = 636 mGy*cm CT Dose Reduction Employed: Automated exposure control(AEC) and iterative recon Comparison: Several studies dating back to 02/10/2023 RESULT: Limitations: Respiratory motion artifacts. Lines, tubes, and devices: None. Lung parenchyma and airways: No consolidation. Upper lung predominant centrilobular and paraseptal emphysema. Stable lung nodules including left upper lobe 5 mm nodule on image 71 and left lower lobe 3 mm nodule on image 155 series 8. Calcified granulomas in right lower lobe. No suspicious pulmonary nodule. The central airways are patent. Pleural space: No pleural effusion. No pleural thickening. Lower neck, lymph nodes, and mediastinum: The imaged thyroid gland is normal. Stable borderline enlarged lymph nodes in the mediastinum, for example right lower paratracheal lymph nodes measure up to 1.4 cm, these are probably reactive. Calcified subcarinal lymph nodes are again noted. Heart, pericardium, and thoracic vessels: The thoracic aorta and main pulmonary artery are normal in caliber. Prosthetic aortic valve. The cardiac chambers are normal in size. Multivessel coronary artery atherosclerotic calcifications are noted, although the study is not optimized for coronary assessment. No pericardial effusion or thickening. Bones and soft tissues: No destructive bone lesion. Chest wall is unremarkable. Upper abdomen: Dictated separately. Localizer images: No additional findings. IMPRESSION: 1. Stable nodules in left lung measuring up to 5 mm, these are indeterminate, recommend continued attention on follow-up. No new lung nodules or consolidations have developed. 2. Stable borderline enlarged lymph nodes in the mediastinum, probably reactive or related to a granulomatous process such as histoplasmosis. Banquet Supervisor: JESUS ALBERTO Transcribe Date/Time: Jul 31 2024 2:19P Dictated by : JOHAN CARTER MD This examination was interpreted and the report reviewed and electronically signed by: JOHAN CARTER MD on Jul 31 2024 2:29PM EST [id number] Normal [facility] CT Chest W contrast Darci IMPRESSION: 1. Stable nodules in left lung measuring up to 5 mm, these are indeterminate, recommend continued attention on follow-up. No new lung nodules or consolidations have developed. 2. Stable borderline enlarged lymph nodes in the mediastinum, probably reactive or related to a granulomatous process such as histoplasmosis. Banquet Supervisor: JESUS ALBERTO Transcribe Date/Time: Jul 31 2024 2:19P Dictated by : JOHAN CARTER MD This examination was interpreted and the report reviewed and electronically signed by: JOHAN CARTER MD on Jul 31 2024 2:29PM EST DIVISION OF RADIOLOGY * * *Final Report* * * DATE OF EXAM: Jul 31 2024 2:11PM [facility] 0539 - CT CHEST W IVCON / PROCEDURE REASON: Malignant neoplasm of urinary bladder, unspecified site (HCC) * * * * Physician Interpretation * * * * EXAMINATION: CHEST CT WITH CONTRAST CLINICAL HISTORY: Malignant neoplasm of urinary bladder Technique: Spiral CT acquisition of the chest from the thoracic inlet to the upper abdomen following IV contrast. MQ: CTCW_6 Contrast: 100 mL Omnipaque [address] Radiation dose: Integrated Dose-length product (DLP) for this visit = 636 mGy*cm CT Dose Reduction Employed: Automated exposure control(AEC) and iterative recon Comparison: Several studies dating back to 02/10/2023 RESULT: Limitations: Respiratory motion artifacts. Lines, tubes, and devices: None. Lung parenchyma and airways: No consolidation. Upper lung predominant centrilobular and paraseptal emphysema. Stable lung nodules including left upper lobe 5 mm nodule on image 71 and left lower lobe 3 mm nodule on image 155 series 8. Calcified granulomas in right lower lobe. No suspicious pulmonary nodule. The central airways are patent. Pleural space: No pleural effusion. No pleural thickening. Lower neck, lymph nodes, and mediastinum: The imaged thyroid gland is normal. Stable borderline enlarged lymph nodes in the mediastinum, for example right lower paratracheal lymph nodes measure up to 1.4 cm, these are probably reactive. Calcified subcarinal lymph nodes are again noted. Heart, pericardium, and thoracic vessels: The thoracic aorta and main pulmonary artery are normal in caliber. Prosthetic aortic valve. The cardiac chambers are normal in size. Multivessel coronary artery atherosclerotic calcifications are noted, although the study is not optimized for coronary assessment. No pericardial effusion or thickening. Bones and soft tissues: No destructive bone lesion. Chest wall is unremarkable. Upper abdomen: Dictated separately. Localizer images: No additional findings. DIVISION OF RADIOLOGY Provider, [facility] - 07/31/2024 * * *Final Report* * * DATE OF EXAM: Jul 31 2024 2:11PM [facility] 0539 - CT CHEST W IVCON / PROCEDURE REASON: Malignant neoplasm of urinary bladder, unspecified site (HCC) * * * * Physician Interpretation * * * * EXAMINATION: CHEST CT WITH CONTRAST CLINICAL HISTORY: Malignant neoplasm of urinary bladder Technique: Spiral CT acquisition of the chest from the thoracic inlet to the upper abdomen following IV contrast. MQ: CTCW_6 Contrast: 100 mL Omnipaque [address] Radiation dose: Integrated Dose-length product (DLP) for this visit = 636 mGy*cm CT Dose Reduction Employed: Automated exposure control(AEC) and iterative recon Comparison: Several studies dating back to 02/10/2023 RESULT: Limitations: Respiratory motion artifacts. Lines, tubes, and devices: None. Lung parenchyma and airways: No consolidation. Upper lung predominant centrilobular and paraseptal emphysema. Stable lung nodules including left upper lobe 5 mm nodule on image 71 and left lower lobe 3 mm nodule on image 155 series 8. Calcified granulomas in right lower lobe. No suspicious pulmonary nodule. The central airways are patent. Pleural space: No pleural effusion. No pleural thickening. Lower neck, lymph nodes, and mediastinum: The imaged thyroid gland is normal. Stable borderline enlarged lymph nodes in the mediastinum, for example right lower paratracheal lymph nodes measure up to 1.4 cm, these are probably reactive. Calcified subcarinal lymph nodes are again noted. Heart, pericardium, and thoracic vessels: The thoracic aorta and main pulmonary artery are normal in caliber. Prosthetic aortic valve. The cardiac chambers are normal in size. Multivessel coronary artery atherosclerotic calcifications are noted, although the study is not optimized for coronary assessment. No pericardial effusion or thickening. Bones and soft tissues: No destructive bone lesion. Chest wall is unremarkable. Upper abdomen: Dictated separately. Localizer images: No additional findings. IMPRESSION IMPRESSION: 1. Stable nodules in left lung measuring up to 5 mm, these are indeterminate, recommend continued attention on follow-up. No new lung nodules or consolidations have developed. 2. Stable borderline enlarged lymph nodes in the mediastinum, probably reactive or related to a granulomatous process such as histoplasmosis. Banquet Supervisor: JESUS ALBERTO Transcribe Date/Time: Jul 31 2024 2:19P Dictated by : JOHAN CARTER MD This examination was interpreted and the report reviewed and electronically signed by: JOHAN CARTER MD on Jul 31 2024 2:29PM EST [facility] Radiology Study observation (narrative) Hank spann [facility] OUTSIDE SURG PATH SLIDE REVI EWon 07-31-2024 AP DISCLAIMER Normal [facility] Comment on above: Order Comment: Speci men Type: BLOOD SPECIMEN Ordering Facility: [facility] Address: [address] [place] [address] Result Comment: Panchito downey Developed Test (LDT) Disclaimer: Performance characteristics of immunohistochemical, immunofluorescent, and chromogenic in-situ hybridization tests have been determined by the performing laboratory within [facility]'s Abelardo Encarnacion Pathology and Laboratory Medicine Department ([facility], [facility], [facility], [facility], [facility], [facility], or [facility]) in a manner consistent with CLIA requirements. One or more of these tests may not have been cleared or approved by the FDA. [facility] is regulated under CLIA as qualified to perform high-complexity testing. These tests are used for clinical purposes. These should not be regarded as investigational or for research. Positive and negative controls stain appropriately. Performed By: #### 2 4323-8 #### [facility] CLIA [id number] [address] [place] [address] [place] CASE REPORT Normal [facility] Comment on above: Order Comment: Speci men Type: BLOOD SPECIMEN Ordering Facility: [facility] Address: [address] [place] [address] Result Comment: [facility] Pathology Report Case: [id number] Authorizing Provider: Codey Christianson MD Collected: 07/31/2024 09:18 AM Ordering Location: [facility] Received: 07/31/2024 09:[address] [facility] Pathologist: Mj Beltran MD Specimen: Slide(s), 4 SLIDES [id number] Performed By: #### 2 4323-8 #### [facility] CLIA [id number] [address] [place] [address] [place] FINAL DIAGNOSIS Normal [facility] Comment on above: Order Comment: Speci men Type: BLOOD SPECIMEN Ordering Facility: [facility] Address: [address] [place] [address] Result Comment: [facility]; [place], [place] ([id number]) A. Urinary bladder, transurethral resection: - Invasive urothelial carcinoma, high-grade, involving muscularis propria. [place] 07/31/2024 at 1058 EDT Performed By: #### 2 4323-8 #### [facility] CLIA [id number] [address] [place] [address] [place] FINAL PERFORMING LAB Normal [facility] Comment on above: Order Comment: Speci men Type: BLOOD SPECIMEN Ordering Facility: [facility] Address: [address] [place] [address] Result Comment: Diag nostic interpretation performed at: [facility], [address] [place] [address], [place] [address] CLIA# [id number] Process Steward: Antoine Tony MD Performed By: #### 2 4323-8 #### [facility] CLIA [id number] [address] [place] [address] STATES OF [facility] CBC W Auto Differential pane l (Bld)on 07-26-2024 Basophils (Bld) [#/Vol] 0.05 10*3/uL [facility] Basophils/100 WBC (Bld) 0.7 % [facility] Differential cell count method Nom (Bld) Auto [facility] Eosinophils (Bld) [#/Vol] 0.24 10*3/uL [facility] Eosinophils/100 WBC (Bld) 3.3 % [facility] Erythrocyte distribution width (RBC) [Ratio] 13.8 % 11.5 - 15.0 % [facility] Hematocrit (Bld) [Volume fraction] 38.1 % Low 39.0 - 51.0 % [facility] Hemoglobin (Bld) [Mass/Vol] 12.2 g/dL Low 13.0 - 17.0 g/dL [facility] Immature granulocytes (Bld) [#/Vol] [facility] Immature granulocytes/100 WBC (Bld) 0.1 % [facility] Interpretation and review of laboratory results Abnormal [facility] Lymphocytes (Bld) [#/Vol] 3.39 10*3/uL [facility] Lymphocytes/100 WBC (Bld) 46.3 % [facility] MCH (RBC) [Entitic mass] 29.8 pg 26.0 - 34.0 pg [facility] MCHC (RBC) [Mass/Vol] 32 g/dL 30.5 - 36.0 g/dL [facility] MCV (RBC) [Entitic vol] 92.9 fL 80.0 - 100.0 fL [facility] Monocytes (Bld) [#/Vol] 0.64 10*3/uL [facility] Monocytes/100 WBC (Bld) 8.7 % [facility] Neutrophils (Bld) [#/Vol] 2.99 10*3/uL [facility] Neutrophils/100 WBC (Bld) 40.9 % [facility] Nucleated RBC (Bld) [#/Vol] NINF [facility] Nucleated RBC/100 WBC (Bld) [Ratio] 0 % /100 WBC [facility] Platelet mean volume (Bld) [Entitic vol] 8.8 fL Low 9.0 - 12.7 fL [facility] Platelets (Bld) [#/Vol] 156 10*3/uL [facility] RBC (Bld) [#/Vol] 4.1 10*6/uL Low 4.20 - 6.0 0 m/uL [facility] WBC (Bld) [#/Vol] 7.32 10*3/uL [facility] Basophils (Bld) [#/Vol] 0.05 10*3/uL Normal <0.11 [facility] Comment on above: Order Comment: Speci men Type: BLOOD SPECIMEN Ordering Facility: [facility] Address: [address] [place] [address] Performed By: #### 2 4323-8 #### [id number] [address] [place] [address] [place] Basophils/100 WBC (Bld) 0.7 % Normal [facility] Comment on above: Order Comment: Speci men Type: BLOOD SPECIMEN Ordering Facility: [facility] Address: [address] [place] [address] Performed By: #### 2 4323-8 #### [facility] [id number] [address] [place] [address] [place] Differential cell count method Nom (Bld) Auto Normal [facility] Comment on above: Order Comment: Speci men Type: BLOOD SPECIMEN Ordering Facility: [facility] Address: [address] [place] [address] Performed By: #### 2 4323-8 #### [facility] CLIA [id number] [address] [place] [address] [place] Eosinophils (Bld) [#/Vol] 0.24 10*3/uL Normal <0.46 [facility] Comment on above: Order Comment: Speci men Type: BLOOD SPECIMEN Ordering Facility: [facility] Address: [address] [place] [address] Performed By: #### 2 4323-8 #### [facility] CLIA [id number] [address] [place] [address] [place] Eosinophils/100 WBC (Bld) 3.3 % Normal [facility] Comment on above: Order Comment: Speci men Type: BLOOD SPECIMEN Ordering Facility: [facility] Address: [address] [place] [address] Performed By: #### 2 4323-8 #### [facility] CLIA [id number] [address] [place] [address] [place] Erythrocyte distribution width (RBC) [Ratio] 13.8 % Normal 11.5-15.0 [facility] Comment on above: Order Comment: Speci men Type: BLOOD SPECIMEN Ordering Facility: [facility] Address: [address] [place] [address] Performed By: #### 2 4323-8 #### [facility] CLIA [id number] [address] [place] [address] [place] Hematocrit (Bld) [Volume fraction] 38.1 % Low 39.0-51.0 [facility] Comment on above: Order Comment: Speci men Type: BLOOD SPECIMEN Ordering Facility: [facility] Address: [facility] [place] [address] Performed By: #### 2 4323-8 #### [facility] CLIA [id number] [address] [place] [address] [place] Hemoglobin (Bld) [Mass/Vol] 12.2 g/dL Low 13.0-17.0 [facility] Comment on above: Order Comment: Speci men Type: BLOOD SPECIMEN Ordering Facility: [facility] Address: [address] [place] [address] Performed By: #### 2 4323-8 #### [facility] CLIA [id number] [address] [place] [address] [place] Immature granulocytes (Bld) [#/Vol] 10*3/uL Normal <0.10 [facility] Comment on above: Order Comment: Speci men Type: BLOOD SPECIMEN Ordering Facility: [facility] Address: [address] [place] [address] Performed By: #### 2 4323-8 #### [facility] CLIA [id number] [address] [place] [address] [place] Immature granulocytes/100 WBC (Bld) 0.1 % Normal [facility] Comment on above: Order Comment: Speci men Type: BLOOD SPECIMEN Ordering Facility: [facility] Address: [address] [place] [address] Performed By: #### 2 4323-8 #### [facility] CLIA [id number] [address] [place] [address] [place] Lymphocytes (Bld) [#/Vol] 3.39 10*3/uL Normal 1.00-4.00 [facility] Comment on above: Order Comment: Speci men Type: BLOOD SPECIMEN Ordering Facility: [facility] Address: [address] [place] [address] Performed By: #### 2 4323-8 #### [facility] CLIA [id number] [address] [place] [address] [place] Lymphocytes/100 WBC (Bld) 46.3 % Normal [facility] Comment on above: Order Comment: Speci men Type: BLOOD SPECIMEN Ordering Facility: [facility] Address: [address] [place] [address] Performed By: #### 2 4323-8 #### [facility] CLIA [id number] [address] [place] [address] MCH (RBC) [Entitic mass] 29.8 pg Normal 26.0-34.0 [facility] Comment on above: Order Comment: Speci men Type: BLOOD SPECIMEN Ordering Facility: [facility] Address: [address] [place] [address] Performed By: #### 2 4323-8 #### [facility] [id number] [address] [place] [address] [place] MCHC (RBC) [Mass/Vol] 32.0 g/dL Normal 30.5-36.0 [facility] Comment on above: Order Comment: Speci men Type: BLOOD SPECIMEN Ordering Facility: [facility] Address: [address] [place] [address] Performed By: #### 2 4323-8 #### [facility] [id number] [address] [place] [address] [place] MCV (RBC) [Entitic vol] 92.9 fL Normal 80.0-100.0 C [facility] Comment on above: Order Comment: Speci men Type: BLOOD SPECIMEN Ordering Facility: [facility] Address: [address] [place] [address] Performed By: #### 2 4323-8 #### [id number] [address] [place] [address] [place] Monocytes (Bld) [#/Vol] 0.64 10*3/uL Normal <0.87 [facility] Comment on above: Order Comment: Speci men Type: BLOOD SPECIMEN Ordering Facility: [facility] Address: [address] [place] [address] Performed By: #### 2 4323-8 #### [facility] CLIA [id number] [address] [place] [address] [place] Monocytes/100 WBC (Bld) 8.7 % Normal [facility] Comment on above: Order Comment: Speci men Type: BLOOD SPECIMEN Ordering Facility: [facility] Address: [address] [place] [address] Performed By: #### 2 4323-8 #### [facility] CLIA [id number] [address] [place] [address] [place] Neutrophils (Bld) [#/Vol] 2.99 10*3/uL Normal 1.45-7.50 [facility] Comment on above: Order Comment: Speci men Type: BLOOD SPECIMEN Ordering Facility: [facility] Address: [address] [place] [address] Performed By: #### 2 4323-8 #### [facility] CLIA [id number] [address] [place] [address] [place] Neutrophils/100 WBC (Bld) 40.9 % Normal [facility] Comment on above: Order Comment: Speci men Type: BLOOD SPECIMEN Ordering Facility: [facility] Address: [address] [place] [address] Performed By: #### 2 4323-8 #### [facility] CLIA [id number] [address] [place] [address] [place] Nucleated RBC (Bld) [#/Vol] 10*3/uL Normal <0.01 [facility] Comment on above: Order Comment: Speci men Type: BLOOD SPECIMEN Ordering Facility: [facility] Address: [address] [place] [address] Performed By: #### 2 4323-8 #### [facility] CLIA [id number] [address] [place] [address] [place] Nucleated RBC/100 WBC (Bld) [Ratio] 0.0 /100 WBC Normal [facility] Comment on above: Order Comment: Speci men Type: BLOOD SPECIMEN Ordering Facility: [facility] Address: [address] [place] [address] Performed By: #### 2 4323-8 #### [facility] CLIA [id number] [address] [place] [address] [place] Platelet mean volume (Bld) [Entitic vol] 8.8 fL Low 9.0-12.7 [facility] Comment on above: Order Comment: Speci men Type: BLOOD SPECIMEN Ordering Facility: [facility] Address: [address] [place], [place] [address] Performed By: #### 2 4323-8 #### [facility] CLIA [id number] [address] [place] [address] [place] Platelets (Bld) [#/Vol] 156 10*3/uL Normal 150-400 [facility] Comment on above: Order Comment: Speci men Type: BLOOD SPECIMEN Ordering Facility: [facility] Address: [address] [place] [address] Performed By: #### 2 4323-8 #### [facility] CLIA [id number] [address] [place] [address] [place] RBC (Bld) [#/Vol] 4.10 10*6/uL Low 4.20-6.00 [facility] Comment on above: Order Comment: Speci men Type: BLOOD SPECIMEN Ordering Facility: [facility] Address: [address] [place] [address] Performed By: #### 2 4323-8 #### [facility] CLIA [id number] [address] [place] [address] [place] WBC (Bld) [#/Vol] 7.32 10*3/uL Normal 3.70-11.00 [facility] Comment on above: Order Comment: Speci men Type: BLOOD SPECIMEN Ordering Facility: [facility] Address: [address] [place] [address] [place] [address] Performed By: #### 2 4323-8 #### [facility] ROCIO [id number] [address] [place], [place] [address] [facility] CN[facility]SPon 07-26-2024 CNOVSP Visit (SP) Office ([facility]) ABELARDO IVORY ([id number]) 1950 M Date Time Provider Department 07/26/24 9:20 AM CODEY CHRISTIANSON [facility] During your visit today, we recorded the following information about you: Temperature Pulse Respiration Blood pressure 97.3 degrees 50/minute 18/minute 150/67 Weight Height 71.1 kg 1.676 m Rakel Verdugo LPN 08/07/2024 2:06 PM Signed Additional intake questions: Has the patient had fever, nausea, vomiting, diarrhea, constipation, fatigue for > 1 week? No Does the patient have a decreased appetite? No Does patient want to see a Artists[employer] Booking Representative? No (yes to any of above refer patient to schedulers for dietitian appointment) ) Does patient have any new or increased numbness or tingling of extremities? No Is patient interested in fertility information? No Does patient need any prescription refills? No Does patient have an advanced directive in place? Yes, copies are in [facility] Electronically Signed By: SUDHA Davis Lisa, LPN 08/07/2024 2:06 PM Signed Additional intake questions: Has the patient had fever, nausea, vomiting, diarrhea, constipation, fatigue for > 1 week? No Does the patient have a decreased appetite? No Does patient want to see a Artists' Booking Representative? No (yes to any of above refer patient to schedulers for dietitian appointment) ) Does patient have any new or increased numbness or tingling of extremities? No Is patient interested in fertility information? No Does patient need any prescription refills? No Does patient have an advanced directive in place? Yes, copies are in Epic Electronically Signed By: SUDHA Davis Shilpa, MD 08/07/2024 2:06 PM Signed [facility] ONCOLOGY INITIAL CONSULT NOTE Date of Service: July 26, 2024 CHIEF COMPLAINT: Muscle invasive bladder cancer Oncologic History: June 2024, began experiencing flank pain, and hematuria, [place] revealed a bladder tumor, and a CT scan with contrast was performed. The urologist attempted resection but was unable to remove the entire tumor. He underwent aortic valve replacement and coronary artery bypass grafting in 2019, during which a blocked artery was addressed. AAA repair 2021. TURBT 06/27/24- HG MIBC CT A/P: diffuse circumferential thickening with soft tissue stranding. Imaging - no metastases on CT A/P Smokes 1/2 ppd, in the past 1-1.5 ppd since age 15 years ROS: 14 point ROS neg other than the symptoms noted above in the HPI. 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 Hyperlipidemia Juxtarenal ruptured abdominal aortic aneurysm (AAA) 12/28/2021 PMH - PAST MEDICAL HISTORY OF 1979 left wrist fracture PUD (peptic ulcer disease) PAST SURGICAL HISTORY Procedure Laterality Date CABG (1) VEIN GRAFT AND ARTERIAL GRAFT 02/12/2019 AVR and CABG x1 PAST SURGICAL HISTORY OF cyst removed from back Social History Tobacco Use Smoking status: Every Day Current packs/day: 0.00 Average packs/day: 1 pack/day for 40.0 years (40.0 ttl pk-yrs) Types: Cigarettes Start date: 01/30/1979 Last attempt to quit: 01/30/2019 Years since quittin.4 Smokeless tobacco: Never Tobacco comments: started smoking 15yo, usually 1 PPD Vaping Use Vaping status: Never Used Substance Use Topics Alcohol use: No Drug use: No ALLERGIES No Known Allergies Current Outpatient Medications Medication Sig Dispense Refill oxyCODONE IR (ROXICODONE) 5 mg immediate release tablet Take 1-2 tablets by mouth every 8 hours as needed for up to 9 doses. (Patient not taking: Reported on 02/03/2022) 9 tablet 0 acetaminophen (TYLENOL) 325 mg tablet Take 2 tablets by mouth every 4 hours. docusate sodium (COLACE) 100 mg capsule Take 1 capsule by mouth twice daily. (Patient not taking: Reported on 02/03/2022) rosuvastatin (CRESTOR) 5 mg tablet Take 5 mg by mouth once daily. iv contrast (will be provided with radiology test) CT Cardiac - No IV access, insert saline lock prior to the sedation, infusion, injection for imaging exam. Discontinue saline lock post exam. If Pt. has a central line or IVAD, may access for administration according to line specific nursing protocol. Once exam is complete flush line and de-access according to line specific nursing protocol in the CT contrast administration guidelines link. (Patient not taking: No sig reported) 1 Each 0 Omeprazole 40 mg capsule Take 1 capsule by mouth once daily. 30 capsule 0 aspirin 81 mg chewable tablet Take 1 tablet by mouth once daily. 30 tablet 0 a (more content not included)... Normal [facility] Comprehensive metabolic 2000 panelon 07-26-2024 Albumin [Mass/Vol] 4.2 g/dL 3.9 - 4.9 g/dL [facility] ALP [Catalytic activity/Vol] 76 U/L 38 - 113 U/L [facility] ALT [Catalytic activity/Vol] 12 U/L 10 - 54 U/L [facility] Anion gap [Moles/Vol] 13 mmol/L 8 - 15 mmol/L [facility] AST [Catalytic activity/Vol] 19 U/L 14 - 40 U/L [facility] Bilirubin [Mass/Vol] 0.3 mg/dL 0.2 - 1 .3 mg/dL [facility] Calcium [Mass/Vol] 9.3 mg/dL 8.5 - 10. 2 mg/dL [facility] Chloride [Moles/Vol] 103 mmol/L 98 - 10 7 mmol/L [facility] CO2 [Moles/Vol] 23 mmol/L 22 - 30 mmol/L [facility] Creatinine [Mass/Vol] 1.54 mg/dL High 0.73 - 1.22 mg/dL [facility] GFR/1.73 sq M.predicted among non-blacks MDRD (S/P/Bld) [Vol rate/Area] 47 mL/min/{1.73_m2} Low - PINF [facility] Comment on above: Estimated Glomerular Filtration Rate (eGFR) is calculated using the 2020 CKD-EPI creatinine equation. This equation utilizes serum creatinine, sex, and age as parameters. The creatinine assay has traceable calibration to isotope dilution-mass spectrometry. Refer to KDIGO guidelines for clinical interpretation. In patients with unstable renal function, e.g. those with acute kidney injury, the eGFR may not accurately reflect actual GFR. Glucose [Mass/Vol] 106 mg/dL High 74 - 99 mg/dL [facility] Comment on above: The [place] Diab[employer] Association (ADA) provides guidance for cutoff values for fasting glucose and random glucose. The ADA defines fasting as no caloric intake for at least 8 hours. Fasting plasma glucose results between 100 to 125 mg/dL indicate increased risk for diabetes (prediabetes). Fasting plasma glucose results greater than or equal to 126 mg/dL meet the criteria for diagnosis of diabetes. In the absence of unequivocal hyperglycemia, results should be confirmed by repeat testing. In a patient with classic symptoms of hyperglycemia or hyperglycemic crisis, random plasma glucose results greater than or equal to 200 mg/dL meet the criteria for diagnosis of diabetes. Reference: Standards of Medical Care in Diabetes 2016, [place] Diabetes Association. Diabetes Care. 2016.39(Suppl 1). Interpretation and review of laboratory results Abnormal [facility] Potassium [Moles/Vol] 4.9 mmol/L 3.7 - 5.1 mmol/L [facility] Protein [Mass/Vol] 7.1 g/dL 6.3 - 8.0 g/dL [facility] Sodium [Moles/Vol] 139 mmol/L 136 - 144 mmol/L [facility] Urea nitrogen [Mass/Vol] 34 mg/dL High 9 - 24 mg/dL [facility] Albumin [Mass/Vol] 4.2 g/dL Normal 3.9-4.9 [facility] Comment on above: Order Comment: Speci men Type: BLOOD SPECIMEN Ordering Facility: [facility] [address] [place] [address] Performed By: #### 2 4323-8 #### [facility] [id number] [address] [place] [address] [place] ALP [Catalytic activity/Vol] 76 U/L Normal 38-113 [facility] Comment on above: Order Comment: Speci men Type: BLOOD SPECIMEN Ordering Facility: [facility] Address: [address] [place] [address] Performed By: #### 2 4323-8 #### [facility] CLIA [id number] [address] [place] [address] [place] ALT [Catalytic activity/Vol] 12 U/L Normal 10-54 [facility] Comment on above: Order Comment: Speci men Type: BLOOD SPECIMEN Ordering Facility: [facility] Address: [address] [place] [address] Performed By: #### 2 4323-8 #### [facility] CLIA [id number] [address] [place] [address] [place] Anion gap [Moles/Vol] 13 mmol/L Normal 8-15 [facility] Comment on above: Order Comment: Speci men Type: BLOOD SPECIMEN Ordering Facility: [facility] Address: [address] [place] [address] Performed By: #### 2 4323-8 #### [facility] CLIA [id number] [address] [place] [address] [place] AST [Catalytic activity/Vol] 19 U/L Normal 14-40 [facility] Comment on above: Order Comment: Speci men Type: BLOOD SPECIMEN Ordering Facility: [facility] Address: [address] [place] [address] Performed By: #### 2 4323-8 #### [facility] CLIA [id number] [address] [place] [address] [place] Bilirubin [Mass/Vol] 0.3 mg/dL Normal 0.2-1.3 [facility] Comment on above: Order Comment: Speci men Type: BLOOD SPECIMEN Ordering Facility: [facility] Address: [address] [place], [place] [address] Performed By: #### 2 4323-8 #### [facility] CLIA [id number] [address] [place] [address] [place] Calcium [Mass/Vol] 9.3 mg/dL Normal 8.5-10.2 [facility] Comment on above: Order Comment: Speci men Type: BLOOD SPECIMEN Ordering Facility: [facility] Address: [address] [place] [address] Performed By: #### 2 4323-8 #### [facility] CLIA [id number] [address] [place] [address] [place] Chloride [Moles/Vol] 103 mmol/L Normal 98-107 [facility] Comment on above: Order Comment: Speci men Type: BLOOD SPECIMEN Ordering Facility: [facility] Address: [address] [place] [address] Performed By: #### 2 4323-8 #### [facility] CLIA [id number] [address] [place] [address] [place] CO2 [Moles/Vol] 23 mmol/L Normal 22-30 [facility] Comment on above: Order Comment: Speci men Type: BLOOD SPECIMEN Ordering Facility: [facility] Address: [address] [place] [address] Performed By: #### 2 4323-8 #### [facility] CLIA [id number] [address] [place] [address] [place] Creatinine [Mass/Vol] 1.54 mg/dL High 0.73-1.22 [facility] Comment on above: Order Comment: Speci men Type: BLOOD SPECIMEN Ordering Facility: [facility] Address: [address] [place] [place] [id number] Performed By: #### 2 4323-8 #### [facility] CLIA [id number] [address] [place] [address] [place] Creatinine and Glomerular filtration rate.predicted panel (S/P/Bld) 47 mL/min/1.73m??? Low >=60 [facility] Comment on above: Order Comment: Raul hutson Type: BLOOD SPECIMEN Ordering Facility: [facility] Address: [address] [place] [address] Result Comment: Amy mated Glomerular Filtration Rate (eGFR) is calculated using the 2020 CKD-EPI creatinine equation. This equation utilizes serum creatinine, sex, and age as parameters. The creatinine assay has traceable calibration to isotope dilution-mass spectrometry. Refer to KDIGO guidelines for clinical interpretation. In patients with unstable renal function, e.g. those with acute kidney injury, the eGFR may not accurately reflect actual GFR. Performed By: #### 2 4323-8 #### [id number] [address] [place] [address] [place] Glucose [Mass/Vol] 106 mg/dL High 74-99 [facility] Comment on above: Order Comment: Raul hutson Type: BLOOD SPECIMEN Ordering Facility: [facility] Address: [address] [place] [address] Result Comment: The [place] Diabetes Association (ADA) provides guidance for cutoff values for fasting glucose and random glucose. The ADA defines fasting as no caloric intake for at least 8 hours. Fasting plasma glucose results between 100 to 125 mg/dL indicate increased risk for diabetes (prediabetes). Fasting plasma glucose results greater than or equal to 126 mg/dL meet the criteria for diagnosis of diabetes. In the absence of unequivocal hyperglycemia, results should be confirmed by repeat testing. In a patient with classic symptoms of hyperglycemia or hyperglycemic crisis, random plasma glucose results greater than or equal to 200 mg/dL meet the criteria for diagnosis of diabetes. Reference: Standards of Medical Care in Diabetes 2016, [place] Diabetes [employer]. Diabetes Care. 2016.39(Suppl 1). Performed By: #### 2 4323-8 #### [facility] [id number] [address] [place] [address] [place] Potassium [Moles/Vol] 4.9 mmol/L Normal 3.7-5.1 [facility] Comment on above: Order Comment: Speci men Type: BLOOD SPECIMEN Ordering Facility: [facility] Address: [address] [place] [address] Performed By: #### 2 4323-8 #### [facility] CLIA [id number] [address] [place] [address] [place] Protein [Mass/Vol] 7.1 g/dL Normal 6.3-8.0 [facility] Comment on above: Order Comment: Speci men Type: BLOOD SPECIMEN Ordering Facility: [facility] Address: [address] [place] [id number] Performed By: #### 2 4323-8 #### [facility] CLIA [id number] [address] [place] [address] [place] Sodium [Moles/Vol] 139 mmol/L Normal 136-144 [facility] Comment on above: Order Comment: Speci men Type: BLOOD SPECIMEN Ordering Facility: [facility] Address: [address] [place] [address] Performed By: #### 2 4323-8 #### [facility] CLIA [id number] [address] [place] [address] [place] Urea nitrogen [Mass/Vol] 34 mg/dL High 9-24 [facility] Comment on above: Order Comment: Speci men Type: BLOOD SPECIMEN Ordering Facility: [facility] Address: [address] [place] [address] Performed By: #### 2 4323-8 #### [facility] CLIA [id number] [address] [place] [address] [place] Anion gap in Serum or Plasma Ordered By: Padmini Carrasco on 07-09-2024 Anion gap [Moles/Vol] 10 mmol/L 5-15 [facility] BUN/creatinine ratioOrdered By: Padmini Carrasco on 07-09-2024 Urea nitrogen/Creatinine [Mass ratio] 22.0 mg/mg High 10-20 [facility] Basic Metabolic Profile (BMP )on 07-09-2024 BUN/CRE 22.0 RATIO High 10-20 [facility] Comment on above: Order Comment: Order Date: 10/12/23 Order Info: 86-1 - CMP Order Info: [id number] - LIPID Order Info: [id number] - TSH Order Info: 1 - PSA Order Info: 2498-4 - FE Performed By: #### L 506.1001, L509.1000, L503.0106 #### [facility] [address] [place], [address] Calcium [Mass/Vol] 9.2 mg/dL Normal 7.6-11.0 [facility] Comment on above: Order Comment: Order Date: 10/12/23 Order Info: [id number] - CMP Order Info: [id number] - LIPID Order Info: 3 - TSH Order Info: [id number] - PSA Order Info: 2494 - FE Performed By: #### L 506.1001, L509.1000, L503.0106 #### [facility] [address] [place], [address] Chloride [Moles/Vol] 105 mmol/L Normal 98-108 [facility] Comment on above: Order Comment: Order Date: 10/12/23 Order Info: [id number] - CMP Order Info: [id number] - LIPID Order Info: 3 - TSH Order Info: 1 - PSA Order Info: [id number] - FE Performed By: #### L 506.1001, L509.1000, L503.0106 #### [facility] [address] [place], [address] CO2 [Moles/Vol] 26.1 mmol/L Normal 21.0-32.0 [facility] Comment on above: Order Comment: Order Date: 10/12/23 Order Info: [id number] - CMP Order Info: [id number] - LIPID Order Info: 3 - TSH Order Info: [id number] - PSA Order Info: 2498-4 - FE Performed By: #### L 506.1001, L509.1000, L503.0106 #### [facility] [address] [place], [address] Creatinine [Mass/Vol] 1.74 mg/dL High 0.70-1.20 [facility] Comment on above: Order Comment: Order Date: 10/12/23 Order Info: [id number] - CMP Order Info: [id number] - LIPID Order Info: 3 - TSH Order Info: [id number] - PSA Order Info: 2497-05 - FE Performed By: #### L 506.1001, L509.1000, L503.0106 #### [facility] [address] [place], [address] GAP 10 Normal 5-15 [facility] Comment on above: Order Comment: Order Date: 10/12/23 Order Info: 785-1 - CMP Order Info: [id number] - LIPID Order Info: 3 - TSH Order Info: [id number] - PSA Order Info: 2497-05 - FE Performed By: #### L 506.1001, L509.1000, L503.0106 #### [facility] [address] [place], [address] GFR/1.73 sq M.predicted among non-blacks MDRD (S/P/Bld) [Vol rate/Area] 41 mL/min/{1.73_m2} Low >60 [facility] Comment on above: Order Comment: Order Date: 10/12/23 Order Info: [id number] - CMP Order Info: [id number] - LIPID Order Info: 3 - TSH Order Info: [id number] - PSA Order Info: 2497-05 - FE Result Comment: mL/m in/1.73m2 CKD-EPI Creatinine Equation (2020) Performed By: #### L 506.1001, L509.1000, L503.0106 #### [facility] [address] [place], [address] Glucose [Mass/Vol] 108 mg/dL High 70-99 [facility] Comment on above: Order Comment: Order Date: 10/12/23 Order Info: 86-1 - CMP Order Info: [id number] - LIPID Order Info: [id number] - TSH Order Info: [id number] - PSA Order Info: 2498-4 - FE Performed By: #### L 506.1001, L509.1000, L503.0106 #### [facility] [address] [place], [address] Potassium [Moles/Vol] 4.8 mmol/L Normal 3.3-5.1 [facility] Comment on above: Order Comment: Order Date: 10/12/23 Order Info: 785-1 - CMP Order Info: [id number] - LIPID Order Info: 3 - TSH Order Info: 1 - PSA Order Info: 2494 - FE Performed By: #### L 506.1001, L509.1000, L503.0106 #### [facility] [address] [place], [address] Sodium [Moles/Vol] 141 mmol/L Normal 133-145 [facility] Comment on above: Order Comment: Order Date: 10/12/23 Order Info: [id number] - CMP Order Info: [id number] - LIPID Order Info: 3 - TSH Order Info: 1 - PSA Order Info: [id number] - FE Performed By: #### L 506.1001, L509.1000, L503.0106 #### [facility] [address] [place], [address] Urea nitrogen [Mass/Vol] 38 mg/dL High 4-19 [facility] Comment on above: Order Comment: Order Date: 10/12/23 Order Info: [id number] - CMP Order Info: [id number] - LIPID Order Info: 3 - TSH Order Info: 1 - PSA Order Info: 2494 - FE Performed By: #### L 506.1001, L509.1000, L503.0106 #### [facility] [place], [address] Carbon dioxide, total [Moles /volume] in Central venous bloodOrdered By: Padmini Carrasco on 07-09-2024 CO2 [Moles/Vol] 26.1 mmol/L 21.0-32.0 [facility] Chloride assayOrdered By: Rambo Carrasco on 07-09-2024 Chloride [Moles/Vol] 105 mmol/L 98-108 [facility] Glomerular filtration rate ( GFR) estimation/1.73 sq m using serum, plasma, or whole bOrdered By: Padmini Carrasco on 07-09-2024 GFR/1.73 sq M.predicted among non-blacks MDRD (S/P/Bld) [Vol rate/Area] 41 mL/min/{1.73_m2} Low >60 [facility] Comment on above: mL/min/1.73m2 CKD-EP I Creatinine Equation (2020) Potassium measurement (mass/ volume)Ordered By: Padmini Carrasco on 07-09-2024 Potassium (Unsp spec) [Mass/Vol] 4.8 mmol/L 3.3-5.1 [facility] Serum creatinine measurement (mass/volume)Ordered By: Padmini Carrasco on 07-09-2024 Creatinine [Mass/Vol] 1.74 mg/dL High 0.70-1.20 [facility] Serum glucose measurement (m ass/volume)Ordered By: Padmini Carrasco on 07-09-2024 Glucose [Mass/Vol] 108 mg/dL High 70-99 [facility] Serum or plasma calcium jamel urement (mass/volume)Ordered By: Padmini Carrasco on 07-09-2024 Calcium [Mass/Vol] 9.2 mg/dL 7.6-11.0 [facility] Serum or plasma urea nitroge n measurement (mass/volume)Ordered By: Padmini Carrasco on 07-09-2024 Urea nitrogen [Mass/Vol] 38 mg/dL High 4-19 [facility] Sodium levelOrdered By: Jaz Carrasco on 07-09-2024 Sodium [Moles/Vol] 141 mmol/L 133-145 [facility] Basic Metabolic Profile (BMP )on 06-30-2024 BUN Normal 4-19 [facility] Comment on above: Result Comment: Canc elled via OM: Order cancelled - Patient discharged Performed By: #### L 100.0100, L500.2500 #### [facility] [address] [place], [address] BUN/CRE Normal 10-20 [facility] Comment on above: Result Comment: Canc elled via OM: Order cancelled - Patient discharged Performed By: #### L 100.0100, L500.2500 #### [facility] [address] [place], [address] Calcium Normal 7.6-11.0 [facility] Comment on above: Result Comment: Canc elled via OM: Order cancelled - Patient discharged Performed By: #### L 100.0100, L500.2500 #### [facility] [address] [place], [address] CL Normal 98-108 [facility] Comment on above: Result Comment: Canc elled via OM: Order cancelled - Patient discharged Performed By: #### L 100.0100, L500.2500 #### [facility] [address] [place], [address] CO2 Normal 21.0-32.0 [facility] Comment on above: Result Comment: Canc elled via OM: Order cancelled - Patient discharged Performed By: #### L 100.0100, L500.2500 #### [facility] [address] [place], [address] CREAT,SERUM Normal 0.70-1.20 [facility] Comment on above: Result Comment: Canc elled via OM: Order cancelled - Patient discharged Performed By: #### L 100.0100, L500.2500 #### [facility] [address] [place], [address] eGFR Normal >60 [facility] Comment on above: Result Comment: Canc elled via OM: Order cancelled - Patient discharged Performed By: #### L 100.0100, L500.2500 #### [facility] [address] [place], [address] GAP Normal 5-15 [facility] Comment on above: Result Comment: Canc elled via OM: Order cancelled - Patient discharged Performed By: #### L 100.0100, L500.2500 #### [facility] [address] [place], [address] GLU Normal 70-99 [facility] Comment on above: Result Comment: Canc elled via OM: Order cancelled - Patient discharged Performed By: #### L 100.0100, L500.2500 #### [facility] [address] [place], [address] Potassium Normal 3.3-5.1 [facility] Comment on above: Result Comment: Canc elled via OM: Order cancelled - Patient discharged Performed By: #### L 100.0100, L500.2500 #### [facility] [address] [place], [address] Basic Metabolic Profile (BMP) Normal 133-145 [facility] Comment on above: Result Comment: Canc elled via OM: Order cancelled - Patient discharged Performed By: #### L 100.0100, L500.2500 #### [facility] [address] [place], [address] CBC W/Diff, Automatedon 05-2 Absolute Neut Normal 2.0-7.7 [facility] Comment on above: Result Comment: Canc elled via OM: Order cancelled - Patient discharged Performed By: #### L 100.0100, L500.2500 #### [facility] [address] [place], [address] HCT Normal 40-54 [facility] Comment on above: Result Comment: Canc elled via OM: Order cancelled - Patient discharged Performed By: #### L 100.0100, L500.2500 #### [facility] [address] [place], [address] HGB Normal 13.0-16.5 [facility] Comment on above: Result Comment: Canc elled via OM: Order cancelled - Patient discharged Performed By: #### L 100.0100, L500.2500 #### [facility] [address] [place] [place], [address] MCH Normal 27.0-32.0 [facility] Comment on above: Result Comment: Canc elled via OM: Order cancelled - Patient discharged Performed By: #### L 100.0100, L500.2500 #### [facility] [address] [place], [address] MCHC Normal 32-36 [facility] Comment on above: Result Comment: Canc elled via OM: Order cancelled - Patient discharged Performed By: #### L 100.0100, L500.2500 #### [facility] [address] [place], [address] MCV Normal 80-94 [facility] Comment on above: Result Comment: Canc elled via OM: Order cancelled - Patient discharged Performed By: #### L 100.0100, L500.2500 #### [facility] [address] [place], [address] NEUT% Normal 47-70 [facility] Comment on above: Result Comment: Canc elled via OM: Order cancelled - Patient discharged Performed By: #### L 100.0100, L500.2500 #### [facility] [address] [place], [address] PLT Normal 150-450 [facility] Comment on above: Result Comment: Canc elled via OM: Order cancelled - Patient discharged Performed By: #### L 100.0100, L500.2500 #### [facility] [address] [place], [address] RBC Normal 4.6-6.2 [facility] Comment on above: Result Comment: Canc elled via OM: Order cancelled - Patient discharged Performed By: #### L 100.0100, L500.2500 #### [facility] [address] [place], [address] RDW CV Normal 11.6-14.6 [facility] Comment on above: Result Comment: Canc elled via OM: Order cancelled - Patient discharged Performed By: #### L 100.0100, L500.2500 #### [facility] [address] [place], [address] RDW SD Normal 35.1-43.9 [facility] Comment on above: Result Comment: Canc elled via OM: Order cancelled - Patient discharged Performed By: #### L 100.0100, L500.2500 #### [facility] [address] [place], [address] WBC Normal 4.4-11.0 [facility] Comment on above: Result Comment: Canc elled via OM: Order cancelled - Patient discharged Performed By: #### L 100.0100, L500.2500 #### [facility] [address] [place], [address] Basic Metabolic Profile (BMP )on 06-29-2024 BUN Normal 4-19 [facility] Comment on above: Result Comment: Canc elled via OM: Order cancelled - Patient discharged Performed By: #### L 506.1001, L509.1000, L503.0106 #### [facility] [address] [place], [address] BUN/CRE Normal 10-20 [facility] Comment on above: Result Comment: Canc elled via OM: Order cancelled - Patient discharged Performed By: #### L 506.1001, L509.1000, L503.0106 #### [facility] [address] [place], [address] Calcium Normal 7.6-11.0 [facility] Comment on above: Result Comment: Canc elled via OM: Order cancelled - Patient discharged Performed By: #### L 506.1001, L509.1000, L503.0106 #### [facility] [address] [place], [address] CL Normal 98-108 [facility] Comment on above: Result Comment: Canc elled via OM: Order cancelled - Patient discharged Performed By: #### L 506.1001, L509.1000, L503.0106 #### [facility] [address] [place], [address] CO2 Normal 21.0-32.0 [facility] Comment on above: Result Comment: Canc elled via OM: Order cancelled - Patient discharged Performed By: #### L 506.1001, L509.1000, L503.0106 #### [facility] [address] [place], [address] CREAT,SERUM Normal 0.70-1.20 [facility] Comment on above: Result Comment: Canc elled via OM: Order cancelled - Patient discharged Performed By: #### L 506.1001, L509.1000, L503.0106 #### [facility] [address] [place], [address] eGFR Normal >60 [facility] Comment on above: Result Comment: Canc elled via OM: Order cancelled - Patient discharged Performed By: #### L 506.1001, L509.1000, L503.0106 #### [facility] [address] [place], [address] GAP Normal 5-15 [facility] Comment on above: Result Comment: Canc elled via OM: Order cancelled - Patient discharged Performed By: #### L 506.1001, L509.1000, L503.0106 #### [facility] [address] [place], [address] GLU Normal 70-99 [facility] Comment on above: Result Comment: Canc elled via OM: Order cancelled - Patient discharged Performed By: #### L 506.1001, L509.1000, L503.0106 #### [facility] [address] [place], [address] Potassium Normal 3.3-5.1 [facility] Comment on above: Result Comment: Canc elled via OM: Order cancelled - Patient discharged Performed By: #### L 506.1001, L509.1000, L503.0106 #### [facility] [address] [place], [address] Basic Metabolic Profile (BMP) Normal 133-145 [facility] Comment on above: Result Comment: Canc elled via OM: Order cancelled - Patient discharged Performed By: #### L 506.1001, L509.1000, L503.0106 #### [facility] [address] [place], [address] CBC W/Diff, Automatedon 05-2 Absolute Neut Normal 2.0-7.7 [facility] Comment on above: Result Comment: Canc elled via OM: Order cancelled - Patient discharged Performed By: #### L 506.1001, L509.1000, L503.0106 #### [facility] [address] [place], [address] HCT Normal 40-54 [facility] Comment on above: Result Comment: Canc elled via OM: Order cancelled - Patient discharged Performed By: #### L 506.1001, L509.1000, L503.0106 #### [facility] [address] [place], [address] HGB Normal 13.0-16.5 [facility] Comment on above: Result Comment: Canc elled via OM: Order cancelled - Patient discharged Performed By: #### L 506.1001, L509.1000, L503.0106 #### [facility] [address] [place], [address] MCH Normal 27.0-32.0 [facility] Comment on above: Result Comment: Canc elled via OM: Order cancelled - Patient discharged Performed By: #### L 506.1001, L509.1000, L503.0106 #### [facility] [address] [place], [address] MCHC Normal 32-36 [facility] Comment on above: Result Comment: Canc elled via OM: Order cancelled - Patient discharged Performed By: #### L 506.1001, L509.1000, L503.0106 #### [facility] [address] [place], [address] MCV Normal 80-94 [facility] Comment on above: Result Comment: Canc elled via OM: Order cancelled - Patient discharged Performed By: #### L 506.1001, L509.1000, L503.0106 #### [facility] [address] [place], [address] NEUT% Normal 47-70 [facility] Comment on above: Result Comment: Canc elled via OM: Order cancelled - Patient discharged Performed By: #### L 506.1001, L509.1000, L503.0106 #### [facility] [address] [place], [address] PLT Normal 150-450 [facility] Comment on above: Result Comment: Canc elled via OM: Order cancelled - Patient discharged Performed By: #### L 506.1001, L509.1000, L503.0106 #### [facility] [address] [place], [address] RBC Normal 4.6-6.2 [facility] Comment on above: Result Comment: Canc elled via OM: Order cancelled - Patient discharged Performed By: #### L 506.1001, L509.1000, L503.0106 #### [facility] [address] [place], [address] RDW CV Normal 11.6-14.6 [facility] Comment on above: Result Comment: Canc elled via OM: Order cancelled - Patient discharged Performed By: #### L 506.1001, L509.1000, L503.0106 #### [facility] [address] [place], [address] RDW SD Normal 35.1-43.9 [facility] Comment on above: Result Comment: Canc elled via OM: Order cancelled - Patient discharged Performed By: #### L 506.1001, L509.1000, L503.0106 #### [facility] [address] [place], [address] WBC Normal 4.4-11.0 [facility] Comment on above: Result Comment: Canc elled via OM: Order cancelled - Patient discharged Performed By: #### L 506.1001, L509.1000, L503.0106 #### [facility] [address] [place], [address] Absolute lymphocyte countOrd ered By: Pradip Mcclendon on 06-28-2024 Lymphocytes Auto (Unsp spec) [#/Vol] 0.97 10*3/uL 0.83-4.51 [facility] Absolute neutrophil countOrd ered By: Pradip Mcclendon on 06-28-2024 Neutrophils (Bld) [#/Vol] 6.6 10*3/uL 2.0-7.7 [facility] Anion gap in Serum or Plasma Ordered By: Pradip Mcclendon on 06-28-2024 Anion gap [Moles/Vol] 12 mmol/L 5-15 [facility] Automated lymphocyte count a s percentage of total leukocytesOrdered By: Pradip Mcclendon on 06-28-2024 Lymphocytes/100 WBC Auto (Unsp spec) 11.9 % Low 19-41 [facility] BUN/creatinine ratioOrdered By: Pradip Mcclendon on 06-28-2024 Urea nitrogen/Creatinine [Mass ratio] 16.4 mg/mg - [facility] Basic Metabolic Profile (BMP )on 06-28-2024 BUN/CRE 16.4 RATIO Normal - [facility] Comment on above: Performed By: #### L 506.1001, L509.1000, L503.0106 #### [facility] [address] [place], [address] Calcium [Mass/Vol] 8.1 mg/dL Normal 7.6-11.0 [facility] Comment on above: Performed By: #### L 506.1001, L509.1000, L503.0106 #### [facility] [address] [place], [address] Chloride [Moles/Vol] 102 mmol/L Normal 98-108 [facility] Comment on above: Performed By: #### L 506.1001, L509.1000, L503.0106 #### [facility] [address] [place], [address] CO2 [Moles/Vol] 20.1 mmol/L Low 21.0-32.0 [facility] Comment on above: Performed By: #### L 506.1001, L509.1000, L503.0106 #### [facility] [address] [place], [address] Creatinine [Mass/Vol] 2.95 mg/dL High 0.70-1.20 [facility] Comment on above: Performed By: #### L 506.1001, L509.1000, L503.0106 #### [facility] [address] [place], [address] ECRCL 19.82 ml/min Low 50-250 [facility] Comment on above: Performed By: #### L 506.1001, L509.1000, L503.0106 #### [facility] [address] [place], [address] GAP 12 Normal 5-15 [facility] Comment on above: Performed By: #### L 506.1001, L509.1000, L503.0106 #### [facility] [address] [place], [address] GFR/1.73 sq M.predicted among non-blacks MDRD (S/P/Bld) [Vol rate/Area] 22 mL/min/{1.73_m2} Low >60 [facility] Comment on above: Result Comment: mL/m in/1.73m2 CKD-EPI Creatinine Equation (2020) Performed By: #### L 506.1001, L509.1000, L503.0106 #### [facility] [address] [place], [address] Glucose [Mass/Vol] 132 mg/dL High 70-99 [facility] Comment on above: Performed By: #### L 506.1001, L509.1000, L503.0106 #### [facility] [address] [place], [address] Potassium [Moles/Vol] 5.6 mmol/L High 3.3-5.1 [facility] Comment on above: Performed By: #### L 506.1001, L509.1000, L503.0106 #### [facility] [address] [place], [address] Sodium [Moles/Vol] 133 mmol/L Normal 133-145 [facility] Comment on above: Performed By: #### L 506.1001, L509.1000, L503.0106 #### [facility] [address] [place], [address] Urea nitrogen [Mass/Vol] 48 mg/dL High 4-19 [facility] Comment on above: Performed By: #### L 506.1001, L509.1000, L503.0106 #### [facility] [address] [place], [address] Basophil percentageOrdered B y: Pradip Mcclendon on 06-28-2024 Basophils/100 WBC (Bld) 0.1 % 0-1 [facility] CBC W/Diff, Automatedon 06-08 Absolute Lymph 0.97 X10 3/uL Normal 0.83-4.51 [facility] Comment on above: Performed By: #### L 506.1001, L509.1000, L503.0106 #### [facility] [address] [place], [address] Absolute Neut 6.6 X10 3/uL Normal 2.0-7.7 [facility] Comment on above: Performed By: #### L 506.1001, L509.1000, L503.0106 #### [facility] [address] [place], [address] Basophils/100 WBC (Bld) 0.1 % Normal 0-1 [facility] Comment on above: Performed By: #### L 506.1001, L509.1000, L503.0106 #### [facility] [address] [place], [address] Eosinophils/100 WBC (Bld) 0.0 % Normal 0-5 [facility] Comment on above: Performed By: #### L 506.1001, L509.1000, L503.0106 #### [facility] [address] [place], [address] Erythrocyte distribution width (RBC) [Ratio] 13.6 % Normal 11.6-14.6 [facility] Comment on above: Performed By: #### L 506.1001, L509.1000, L503.0106 #### [facility] [address] [place], [address] Hematocrit (Bld) [Volume fraction] 36.7 % Low 40-54 [facility] Comment on above: Performed By: #### L 506.1001, L509.1000, L503.0106 #### [facility] [address] [place], [address] Hemoglobin (Bld) [Mass/Vol] 12.0 g/dL Low 13.0-16.5 [facility] Comment on above: Performed By: #### L 506.1001, L509.1000, L503.0106 #### [facility] [address] [place], [address] IG% 0.200 Normal 0.0-0.9 [facility] Comment on above: Result Comment: IG% - Immature Granulocytes (promyelocytes, myelocytes and metamyelocytes) > 1% indicates that a LEFT SHIFT is Present. Performed By: #### L 506.1001, L509.1000, L503.0106 #### [facility] [address] [place], [address] Lymphocytes/100 WBC (Bld) 11.9 % Low 19-41 [facility] Comment on above: Performed By: #### L 506.1001, L509.1000, L503.0106 #### [facility] [address] [place], [address] MCH (RBC) [Entitic mass] 30.5 pg Normal 27.0-32.0 [facility] Comment on above: Performed By: #### L 506.1001, L509.1000, L503.0106 #### [facility] [address] [place], [address] MCHC (RBC) [Mass/Vol] 32.7 g/dL Normal 32-36 [facility] Comment on above: Performed By: #### L 506.1001, L509.1000, L503.0106 #### [facility] [address] [place], [address] MCV (RBC) [Entitic vol] 93.4 fL Normal 80-94 [facility] Comment on above: Performed By: #### L 506.1001, L509.1000, L503.0106 #### [facility] [address] [place], [address] Monocytes/100 WBC (Bld) 7.0 % Normal 0-10 [facility] Comment on above: Performed By: #### L 506.1001, L509.1000, L503.0106 #### [facility] [address] [place], [address] Neutrophils/100 WBC (Bld) 80.8 % High 47-70 [facility] Comment on above: Performed By: #### L 506.1001, L509.1000, L503.0106 #### [facility] [address] [place], [address] Nucleated RBC (Bld) [#/Vol] 0 10*3/uL Normal 0-5 [facility] Comment on above: Performed By: #### L 506.1001, L509.1000, L503.0106 #### [facility] [address] [place], [address] Platelet mean volume (Bld) [Entitic vol] 9.1 fL Normal 6.2-12.0 [facility] Comment on above: Performed By: #### L 506.1001, L509.1000, L503.0106 #### [facility] [address] [place], [address] Platelets (Bld) [#/Vol] 175 10*3/uL Normal 150-450 [facility] Comment on above: Performed By: #### L 506.1001, L509.1000, L503.0106 #### [facility] [address] [place], [address] RBC (Bld) [#/Vol] 3.93 10*6/uL Low 4.6-6.2 [facility] Comment on above: Performed By: #### L 506.1001, L509.1000, L503.0106 #### [facility] [address] [place], [address] RDW SD 46.7 fl High 35.1-43.9 [facility] Comment on above: Performed By: #### L 506.1001, L509.1000, L503.0106 #### [facility] [address] [place], [address] WBC (Bld) [#/Vol] 8.1 10*3/uL Normal 4.4-11.0 [facility] Comment on above: Performed By: #### L 506.1001, L509.1000, L503.0106 #### [facility] [address] [place], [address] Carbon dioxide, total [Moles /volume] in Central venous bloodOrdered By: Pradip Mcclendon on 06-28-2024 CO2 [Moles/Vol] 20.1 mmol/L Low 21.0-32.0 [facility] Chloride assayOrdered By: Kelly Mcclendon on 06-28-2024 Chloride [Moles/Vol] 102 mmol/L 98-108 [facility] Eosinophil percentageOrdered By: Pradip Mcclendno on 06-28-2024 Eosinophils/100 WBC (Bld) 0.0 % 0-5 [facility] Erythrocyte distribution wid th ratioOrdered By: Pradip Mcclendon on 06-28-2024 Erythrocyte distribution width (RBC) [Ratio] 13.6 % 11.6-14.6 [facility] Erythrocyte distribution wid th standard deviationOrdered By: Pradip Mcclendon on 06-28-2024 Erythrocyte distribution width (RBC) [Ratio] 46.7 fl High 35.1-43.9 [facility] Glomerular filtration rate ( GFR) estimation/1.73 sq m using serum, plasma, or whole bOrdered By: Pradip Mcclendon on 06-28-2024 GFR/1.73 sq M.predicted among non-blacks MDRD (S/P/Bld) [Vol rate/Area] 22 mL/min/{1.73_m2} Low >60 [facility] Comment on above: mL/min/1.73m2 CKD-EP I Creatinine Equation (2020) Hematocrit Auto (Bld) [Volum e fraction]Ordered By: Pradip Mcclendon on 06-28-2024 Hematocrit (Bld) [Volume fraction] 36.7 % Low 40-54 [facility] Hemoglobin measurementOrdere d By: Pradip Mcclendon on 06-28-2024 Hemoglobin (Bld) [Mass/Vol] 12.0 g/dL Low 13.0-16.5 [facility] Immature granulocytes/100 WB C Auto (Bld)Ordered By: Pradip Mcclendon on 06-28-2024 Immature granulocytes/100 WBC (Bld) 0.200 % 0.0-0.9 [facility] Comment on above: IG% - Immature Granu locytes (promyelocytes, myelocytes and metamyelocytes) > 1% indicates that a LEFT SHIFT is Present. MCV (mean corpuscular volume ) determinationOrdered By: Pradip Mcclendon on 06-28-2024 MCV (RBC) [Entitic vol] 93.4 fL 80-94 [facility] Mean corpuscular hemoglobin (MCH) determinationOrdered By: Pradip Mcclendon on 06-28-2024 MCH (RBC) [Entitic mass] 30.5 pg 27.0-32.0 [facility] Mean corpuscular hemoglobin concentration (MCHC) determinationOrdered By: Pradip Mcclendon on 06-28-2024 MCHC (RBC) [Mass/Vol] 32.7 g/dL 32-36 [facility] Mean platelet volume determi nationOrdered By: Pradip Mcclendon on 06-28-2024 Platelet mean volume (Bld) [Entitic vol] 9.1 fL 6.2-12.0 [facility] Monocyte percentageOrdered B y: Pradip Mcclendon on 06-28-2024 Monocytes/100 WBC (Bld) 7.0 % 0-10 [facility] Neutrophil percentageOrdered By: Pradip Mcclendon on 06-28-2024 Neutrophils/100 WBC (Bld) 80.8 % High 47-70 [facility] Nucleated red blood cell per centageOrdered By: Pradip Mcclendon on 06-28-2024 Nucleated RBC/100 WBC (Bld) [Ratio] 0 % 0-5 [facility] Platelet countOrdered By: Kelly Mcclendon on 06-28-2024 Platelets (Bld) [#/Vol] 175 10*3/uL 150-450 [facility] Potassiumon 06-28-2024 Potassium [Moles/Vol] 5.0 mmol/L Normal 3.3-5.1 [facility] Comment on above: Performed By: #### L 501.5600 ####[facility] [id number] [place], [address] Potassium measurement (mass/ volume)Ordered By: Pradip Mcclendon on 06-28-2024 Potassium (Unsp spec) [Mass/Vol] 5.0 mmol/L 3.3-5.1 [facility] RBC Auto (Bld) [#/Vol]Ordere d By: Pradip Mcclendon on 06-28-2024 RBC (Bld) [#/Vol] 3.93 10*6/uL Low 4.6-6.2 [facility] Serum creatinine measurement (mass/volume)Ordered By: Pradip Mcclendon on 06-28-2024 Creatinine [Mass/Vol] 2.95 mg/dL High 0.70-1.20 [facility] Serum glucose measurement (m ass/volume)Ordered By: Pradip Mcclendon on 06-28-2024 Glucose [Mass/Vol] 132 mg/dL High 70-99 [facility] Serum or plasma calcium jamel urement (mass/volume)Ordered By: Pradip Mcclendon on 06-28-2024 Calcium [Mass/Vol] 8.1 mg/dL 7.6-11.0 [facility] Serum or plasma urea nitroge n measurement (mass/volume)Ordered By: Pradip Mcclendon on 06-28-2024 Urea nitrogen [Mass/Vol] 48 mg/dL High 4-19 [facility] Sodium levelOrdered By: Pradip Mcclendon on 06-28-2024 Sodium [Moles/Vol] 133 mmol/L 133-145 [facility] White blood cell (WBC) count Ordered By: Pradip Mcclendon on 06-28-2024 WBC (Bld) [#/Vol] 8.1 10*3/uL 4.4-11.0 [facility] Discharge Instructionon 06-08 Discharge Instruction [facility] Medical Records Department [address] [place] [address] Instructions for Home/Discharge Instructions 06/27/24 0714 MR#: [id number] Acct: [id number] Name: ABELARDO IVORY Rep #: [id number] : 1950 74 From: Pradip Mcclendon MD PCP: Dr. Padmini Carrasco MD [place] [facility] [place]charge Instructions Diet Discharge Diet: No restrictions DC O2, CPAP, BIPAP needs Home O2 Discharge instructions: No Dressing / Incision Discharge Activity: Return to Normal Activity and May Not Drive (while taking narcotic pain medications.) Dressing / Incision Call your doctor if you observe: Fever of 101 or Higher Follow Up Care Please Follow Up With: Pradip Mcclendon MD When: Call [phone] for an appointment Test Results: Test results from this visit will be discussed in further detail at your follow-up appointment, if applicable. Discharge Plan Admission Primary Reason for Your Visit: Resection of bladder tumor Attending Provider: Pradip Mcclendon Primary Care Provider: Padmini Carrasco Instructions Print Language: Guamanian Discharge Orders/Prescriptions Prescriptions: New ibuprofen 600 mg tablet 600 mg PO Q6H PRN (Reason: pain) Qty: 20 0RF Continued amlodipine 5 mg tablet 5 mg PO DAILY Qty: 30 11RF rosuvastatin [Crestor] 5 mg tablet 5 mg PO DAILY acetaminophen 500 mg capsule 1,000 mg PO Q6H PRN (Reason: pain) Trelegy Ellipta 200-62.5-25 mcg blister with device 1 inh inhalation DAILY PRN (Reason: SOB) cholecalciferol (vitamin D3) 25 mcg (1,000 unit) capsule 25 mcg PO DAILY metoprolol tartrate 25 mg tablet 12.5 mg PO BID Qty: 90 3RF Held aspirin 81 mg tablet,delayed release (DR/EC) 81 mg PO DAILY Hold Instructions: Resume on 07/11/24. Patient Comments: STOP PER DR. MCCLENDON PRIOR TO PROCEDURE Referrals / Follow Up: Padmini Carrasco MD [Primary Care Provider] - Pradip Mcclendon MD [Med Staff - Active Staff] - Disposition Disposition (needs filled in before D/C Order can be placed): Home, Self Care 06/27/24 0714 Pradip Mcclendon MD CC: Dr. Padmini Carrasco MD Signed Normal [facility] Immunohistochemical Stainson 06-27-2024 Immunohistochemical Stains Patient Age/Sex Location Account Attending Physician ABELARDO IVORY 74/M MS3 [id number] Dr. Pradip Mcclendon MD Specimen: [id number] Received: 06/27/24 Status: EZEQUIEL Mack Num: [id number] Spec Type: BLADDER BX Subm Dr: Dr. Pradip Mcclendon MD HEADER OPERATION: Transurethral resection bladder PRE-OP DIAGNOSIS: Bladder tumor TISSUE SUBMITTED: A- Bladder tumor MICROSCOPIC DIAGNOSIS A. Bladder, tumor, transurethral resection bladder tumor: * Invasive urothelial carcinoma, high grade - see note and Comment. * Lamina propria involved. * Muscularis propria present and involved. * Suspicious for lymphovascular invasion - see note. * Note: IHC performed. The tumor cells are positive for NILES-3 and negative for PSAP, supporting the histologic diagnosis. Foci of possible lymphovascular invasion noted, however the tissue is distorted with cautery artifact. COMMENT Selected slides/images were reviewed in intradepartmental consultation by Dr Mao Brennan ([facility] pathology division, [facility]). MICROSCOPIC DESCRIPTION Slides are reviewed. All matched controls reacted appropriately. These tests were developed and their performance characteristics determined by [facility]. They may not have been cleared or approved by the U.S. Food and Drug Administration. The FDA has determined that such clearance or approval is not necessary.??? The above immunohistochemical/kesha Kristyn???markers are ordered and reviewed by the Pathologist. GROSS DESCRIPTION A. Received in formalin in a container labeled with the patient's name, date of , and bladder tumor are multiple white-pink, friable, and papillary fragments of soft tissue measuring 3.5 x 2.9 x 0.9 cm in aggregate and 1.6 g together. The specimen is submitted in toto in A1-3. [facility] 06-27-2024 CPT:09084,36735,05999 Patient Age/Sex Location Account Attending Physician ABELARDO IVORY 74/M MS[address] [id number] Dr. Pradip Mcclendon MD ADDENDUM Addendum 1 Entered: 07/31/24-3706 This addendum is added to incorporate an outside pathology consultation report. The case was examined at [facility] by Dr. Beltran (#[id number]) and the following diagnosis was rendered. A. Urinary bladder, transurethral resection: Invasive urothelial carcinoma, high-grade, involving muscularis propria. Please see complete above mentioned consultation report in EMR Addendum Signed (signature on file) Dr. Muriel Batista MD 07/31/24 1550 Patient Age/Sex Location Account Attending Physician ABELARDO IVORY 74/M MS3 [id number] Dr. Pradip Mcclendon MD Signed (signature on file) Dr. Muriel Batista MD 06/29/24 1547 Normal [facility] Comment on above: Performed By: #### L 506.1001, L509.1000, L503.0106 #### [facility] [place] [address] [place], [address] MR/POSTOP.ANEkenny 06-27-2024 MR/POSTOP.ANE [facility] Medical Records Department [address] [place] [address] Anesthesia Postop Eval I 06/27/24 0934 MR#: [id number] Acct: [id number] Name: ABELARDO IVORY Rep #: [id number] : 1950 74 From: Jose Luis Man CRNA PCP: Dr. Padmini Carrasco MD [place] [facility] [place] Race: C Location: [place] [address] Anesthesia: Postop Eval I Current Vital Signs Temperature: 97.3 F Pulse Rate: 60 Blood Pressure: 186/72 Respiratory Rate: 16 Pulse Ox: 98 Assessment Airway patent: Yes Spontaneous unlabored respirations: Yes nausea: No Vomiting: No Anesthesia Complication: No Fluid Hydration Crystalloid volume administer (ml): 500 Total IV fluid infused: 500 Progress Note Anesthesia document: Postop Eval 1 completed: Yes 06/27/24 0935 Date Jose Luis Man ASPHALT PATCHER Cosigner Signature: Date CC: Signed Normal [facility] MR/[id number] 06-27-2024 [facility] Medical Records Department [address] [place] [address] Anesthesia Postop Eval II 06/27/24 1136 MR#: [id number] Acct: [id number] Name: ABELARDO IVORY Rep #: [id number] : 1950 74 From: Jose Cisneros MD PCP: Dr. Padmini Carrasco MD [place] [facility] [place] Race: C Location: [place] [address] Anesthesia Postop Eval I Sum Postop Eval Completion status Anesthesia document: Postop Eval 1 completed: Yes Anesthesia Postop Eval I Summary Anesthesia Postop Eval I Summary: Anesthesia Postop Eval I: Assessment Summary Airway patent Yes 06/27/24 09:34 ASPHALT [email or web address] Spontaneous unlabored Yes 06/27/24 09:34 ASPHALT PATCHER.TNES respirations Mental status nausea No 06/27/24 09:34 ASPHALT PATCHER.TNES Vomiting No 06/27/24 09:34 ASPHALT PATCHER.TNES Anesthesia Postop Eval I: Fluid Summary Crystalloid volume administer 500 06/27/24 09:34 ASPHALT PATCHER.TNES (ml) Colloids volume administered ( ml) Blood Product volume administered (ml) Total IV fluid infused 500 06/27/24 09:34 ASPHALT PATCHER.TNES Anesthesia Postop Eval I: Summary Notes Anesthesia Complication No 06/27/24 09:34 ASPHALT PATCHER.TNES Anesthesia Complication Comment: Post-operative progress note Anesthesia: Postop Eval II Evaluation Mental status: Awake Pain Level: 4 nausea: No Vomiting: No 06/27/24 1137 Date Jose Jackson Signature: Date CC: Signed Normal [facility] Operative Reporton 5 Operative Report [facility] Medical Records Department [address] [place] [address] Operative Report 06/27/24917 MR#: [id number] Acct: [id number] Name: ABELARDO IVORY Rep #: [id number] : 1950 74 From: Pradip Mcclendon MD PCP: Dr. Padmini Carrasco MD Status:[facility] Location: [place] [address] Operative Report (Standard) Operative Information Date of Procedure: 06/27/24 Pre-Operative Diagnosis: Large bladder mass Post-Operative Diagnosis: The same Surgery/Procedure Performed: Transurethral resection of the large bladder mass appears invasive propagation worker: No Type of Anesthesia: General RN Documented Start/Stop Times: Operation Date: 06/27/24 08:45 Case Time Into Pre-Op 06/27/24 06:33 Out of Pre-Op 06/27/24 08:46 Anesthesia Start 06/27/24 08:47 Into Room 06/27/24 08:47 Procedure Start 06/27/24 08:59 Procedure End 06/27/24 09:18 Procedure Start Time: 08:59 Procedure Stop Time: 09:18 Select all DRAINS/GRAFTS/IMPLANTS that apply: Drains (18 Bulgarian Alaniz catheter) Drain details: alaniz Estimated Blood Loss: Minimal Specimen collected: Yes Description of specimen(s) removed: Tumor chips specimen bladder tumor Description of surgery: This is a 74-year-old male with a long history of smoking who presented to the office with gross hematuria burning with urination difficulty with urination on cystoscopy is found to have a lot of bullous edema around the orifice into his bladder and what appears to be a mass in the bladder neck so today do a resection of this mass Patient was taken back to the operating room after induction of anesthesia he he was intubated placed in dorsolithotomy position, the penis and testicles were prepped and draped in usual fashion I first dilated the meatus with sounds starting at 18 Bulgarian up to 26 Bulgarian I was unable to easily go into the urethra with a 24 Bulgarian noncontinuous flow Olympus bipolar resectoscope with upon entering the bladder he had a lot of bullous edema around the bladder neck and then there was papillary tumor looking around the bladder neck but that I started resecting this and the look like an invasive tumor in the bladder neck as I resected the trigone on the left side the ureteral orifice was not able to be identified I then worked my way to the right side resecting this tumor and appeared to be invasive into the muscle very deep tumor I resected as deep as I could but then I could not resect deeper since the tumor was invasive I did find the right ureteral orifice after resecting. After resecting a significant amount of tissue tumor measured about 6 cm x 5 cm x 7 cm in size in total. It looked invasive. Possible diagnosis would be invasive bladder cancer the other possibility would be invasive prostate cancer. After resecting this tumor I then placed a Alaniz catheter in the bladder we cauterized obtain hemostasis we put Mitomycin-C in the bladder for topical chemotherapy irrigation patient anesthetic was reversed taken back to the PACU in good condition he will go home today after the catheter is removed follow-up in the office in 2 weeks to go over the results of the resection. Surgical Findings: Large invasive bladder bladder mass at bladder neck Complications Complications: No Admit VTE Documentation VTE Present on Admission: No VTE Mechan Device Prophylaxis: SCD's VTE Pharm Prophylaxis ordered?: No 06/27/24 0921 Cosigner Signature (if applicable): CC: Dr. Padmini Carrasco MD; Dr. Pradip Mcclendon MD Signed [facility] MR/PAT.JAVIon 06-25-2024 MR/PAT.[facility] Medical Records Department [address] [place] [address] PAT - Anesthesia 06/25/24 1014 MR#: [id number] Acct: [id number] Name: ABELARDO IVORY Rep #: [id number] : 1950 74 From: Jose Cisneros MD PCP: Dr. Padmini Carrasco MD [place] [facility] [place] Race: C [place] [facility] [place] Pre-Assessment Diagnosis/Proposed Procedure Planned Operative Procedure(s): Cysto,Transurethal Resec Bladder,Olympus Anesthesia History Anesthesia History - car runner: Anesthesia History - car runner Hx Hospitalization No 06/13/24 10:26 Any Problems With Anesthesia No 06/13/24 10:26 Cholinesterase deficiency No 06/13/24 10:26 You/Your Family Experience No 06/13/24 10:26 fever (hyperthermia) with Relationship Recent Exposure to Contagious No 01/18/24 10:01 Disease Does patient have nerve No 06/13/24 10:26 stimulator Patient instructed to have device shut off --Does patient have Pacemaker or ICD? When Was Last Pacemaker Check QUESTION #4 FULL TEXT: You/Your Family Experience fever (hyperthermia) with Anesthesia Last Oral Intake Last Oral intake: Last Oral Intake NPO since Meds taken in AM with sips of water? Meds patient instructed to take am of surgery PONV PONV - car runner: PONV - car runner Female No 06/13/24 10:26 HX of Motion Sickness No 06/13/24 10:26 HX of N/V After Surgery No 06/13/24 10:26 Non-Smoker No 06/13/24 10:26 Duration of Surgery greater Yes 06/13/24 10:26 than 60 minutes Number of Risk Factors 1 06/13/24 10:26 PONV Score Low Risk 06/13/24 10:26 Height Weight Height Weight: Anesthesia: Height Weight Height 5 ft 6 in 05/16/24 22:09 Respiratory Assessment Respiratory Assessment - car runner: Respiratory Tract Infection Hx - car runner Hx Respiratory Tract Infection No 06/13/24 10:26 STOP Sleep Apnea STOP Sleep Apnea - car runner: STOP Sleep Apnea - car runner Hx Hypertension Yes: CONTROLLED ON MED 06/13/24 10:26 Hx Sleep Apnea No 06/13/24 10:26 CPAP BIPAP Do you snore loudly (louder No 06/13/24 10:26 than talking or can be heard Do you often feel tired/ No 06/13/24 10:26 fatigued/ sleepy during daytime? Has anyone observed you stop No 06/13/24 10:26 breathing during sleep? STOP Results Negative 06/13/24 10:26 QUESTION #5 FULL TEXT : Do you snore loudly (louder than talking or can be heard through closed doors)? 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 Specify any problems Hx of Preganancy in last 3 N/A 06/13/24 10:26 Months Nurse Filling Out Transfusion VCHRISTIN 06/13/24 10:26 Questions: Date: 06/13/24 06/13/24 10:26 Time: 10:27 06/13/24 10:26 Patient unable to answer at this time (ie. confused, unrespo /Reproduction History /Reproductive History - car runner: /Reproductive Hx- car runner Hx Now Gestational Age (in weeks): EDC: Hx Hx Para Hx Section SAB PFSH Medical History Wears dentures Wears glasses Bruising Easy bruising High cholesterol Smoker Shortness of breath on exertion History of echocardiogram Cardiology follow-up encounter Stage 3b chronic kidney disease (CKD) Thrombocytopenia Chronic kidney insufficiency Pleural effusion Secondary pulmonary arterial hypertension Atherosclerotic heart disease of lummi coronary artery without angina pectoris Intention tremor Carotid stenosis, bilateral Hyperlipidemia Nonrheumatic aortic (valve) stenosis Essential hypertension Tobacco dependence Bilateral inguinal hernia Left carotid bruit Abdominal aortic aneurysm (AAA) Anemia Subcutaneous mass of back PUD (peptic ulcer disease) Cough Arthritis Home Medications ???Medication ???Instructions ???Recorded ???Last Taken ???Type aspirin 81 mg tablet,delayed 81 mg PO DAILY heart health 01/12/24 History (more content not included)... Normal [facility] Urine Cultureon 06-22-2024 [facility] Culture exhibits no growth. Normal [facility] Comment on above: Performed By: #### L 506.1001, L509.1000, L503.0106 #### [facility] [address] [place], [address] Abdomen/Pelvis WITH Contrast on 06-21-2024 Abdomen/Pelvis WITH Contrast [facility] Imaging Services [address] [place], [place] [address] Abdomen/Pelvis WITH Contrast MR#: [id number] Acct: [id number] Name: ABELARDO IVORY Rep #: [id number] : 1950 M 74 From: Lebron mak MD PCP: Dr. Padmini Carrasco MD Status: REG CLI Study: Abdomen/Pelvis WITH Contrast Date of Exam: Exam# [id number] Ordering Dr: Pradip Mcclendon MD PROCEDURE: ABDOMEN/PELVIS WITH CONTRAST 06/21/2024 REASON FOR EXAM: GROSS HEMATURIA TECHNIQUE: Abdomen and pelvis CT with intravenous contrast. Coronal and Sagittal reconstruction series were provided. PATIENT PREPARATION: Per protocol ORAL CONTRAST TYPE: None. CONTRAST: Isovue-300 VOLUME: 100 mL One or more dose reduction techniques were used (e.g., Automated exposure control, adjustment of the mA and/or kV according to patient size, use of iterative reconstruction technique. RADIATION DOSE SUMMARY: CTDlvol: 9.3 mGy DLP: 454.02 mGycm COMPARISON: Prior study dated May 16, 2024. FINDINGS: Lung bases: Unremarkable. Liver: Calcified granulomas in the right lobe. Gallbladder: Unremarkable Spleen: Multiple calcified splenic granulomas. Pancreas: Normal size without evidence of mass surrounding inflammation or ductal dilation. Adrenals: Unremarkable Kidneys: Mild degree of process left hydroureter down to the ureterovesical junction. Bladder: Bladder wall thickening along the base of the bladder worse on the left side. A mass lesion should be ruled out. This is the reason for the left hydronephrosis. There is evidence of prosthetic enlargement and calcification. Increased markings are seen in the surrounding Kirstie bladder fat. Bowel: Colonic diverticulosis without diverticulitis. Appendix: The appendix is not identified. There is no inflammatory process identified in the right lower quadrant to suggest appendicitis. Lymph nodes: No retroperitoneal lymph nodes are seen. Vasculature: Stable appearance of the fusiform infrarenal abdominal aortic aneurysm with mural thrombus. The aneurysm extends into the proximal portions of both common iliac arteries. There has been no change. Peritoneum / Retroperitoneum: Bilateral inguinal hernias containing fat worse on the left side. Bones: Stable loss of height of the superior endplate of the L2 and L5 vertebrae. Disc space narrowing at the L5-S1. CT/Abdomen/Pelvis WITH Contrast IMPRESSION: Left hydronephrosis and hydroureter due to a mass at the base of the bladder as described. Bladder wall thickening with increased markings in the surrounding peritoneal fat. Sigmoid diverticulosis. Stable fusiform aneurysmal dilatation of the infrarenal abdominal aorta with extension to the right and left common iliac arteries. Bilateral inguinal hernias containing fat worse on the left side. Calcified hepatic and splenic granulomas. Reading Location: [id number] CC: Dr. Padmini Carrasco MD; Dr. Pradip Mcclendon MD Banquet Supervisor: Signed Normal [facility] CREATININE FINGERSTICKon Creatinine [Mass/Vol] 1.8 mg/dL High 0.70-1.30 [facility] Comment on above: Performed By: #### L 9100.0200 ####[facility] [id number] [place], [place], [address] GFR/1.73 sq M.predicted among non-blacks MDRD (S/P/Bld) [Vol rate/Area] 39.0000 mL/min/{1.73_m2} Low >60 [facility] Comment on above: Performed By: #### L 9100.0200 ####[facility] [id number] [place], [place], [id number] Creatinine measurement at dsideOrdered By: Pradip Mcclendon on 06-21-2024 Creatinine [Mass/Vol] 1.8 mg/dL High 0.70-1.30 [facility] EGFROrdered By: Pradip Mcclendon on 06-21-2024 GFR/1.73 sq M.predicted among non-blacks MDRD (S/P/Bld) [Vol rate/Area] 39.0000 mL/min/{1.73_m2} Low >60 [facility] Urine cultureOrdered By: Casimiro Mcclendon on 06-21-2024 Bacteria identified Cx Nom (U) Culture exhibits no growth. [facility] 12 Lead EKG performed by [facility] on 06-19-2024 12 Lead EKG performed by [facility] [address] [place] [address] 12 Lead EKG performed by [facility] 06/19/24 0614 MR#: [id number] Acct: [id number] Name: ABELARDO IVORY Rep #: [id number] : 1950 74 From: Nito ACUNA Attending Dr: KALPANA Awad Status: PRE AM B Ordering Dr: Nito Rosales Date: 06/19/24 Location: [facility] Sex: M C Admitted: [facility]/12 Lead EKG performed by [facility] ECG Report Interpretation ---Sinus Bradycardia WITHIN NORMAL LIMITSElectronically signed on 06/19/2024 at 08:20 by Raheem Farrar Software Version [id number] 06/19/24 0821 Date Nito ACUNA CC: Dr. Padmini Carrasco MD Date Dictated: 06/19/24613 Date Transcribed: 06/19/24613 Banquet Supervisor: FREDDIE Signed Normal [facility] 12 lead electrocardiography reportOrdered By: Nito Rosales on 06-19-2024 EKG study [facility] [address] [place] [address] 12 Lead EKG performed by [facility] 06/19/24613 MR#: [id number] Acct: [id number] Name: ALEJANDRAABELARDO SWEENEY Rep #:[id number] : 1950 74 From: Nito ACUNA Attending Dr: KALPANA Awad St atus: PRE AMB Ordering Dr: Nito Rosales Date: 06/19/24 Location: [facility] Sex: M C Admitted: BMS/12 Lead EKG performed by [facility] ECG Report Interpretation ---Sinus Bradycardia WITHIN NORMAL LIMITSElectronically signed on 06/19/2024 at 08:20 by Raheem Farrar Software Version [id number] 06/19/2421 Date _ Nito ACUNA CC: Dr. Padmini Carrasco MD ~ Date Dictated: 06/19/24613 Date Transcribed: 06/19/24613 Banquet Supervisor: FREDDIE Signed [place] [employer] Work Phone: Cardiology Visit Reporton Cardiology Visit Report [facility] [address] [place] [address] OFFICE VISIT Date of Service: 06/19/24 MR#: [id number] Acct: [id number] Name: ABELARDO IVORY Rep #: [id number] : 1950 Provider: KALPANA Awad Age/Sex: 74/M Location: [facility] Status: Signed HPI HPI History of Present Illness Details: Abelardo Ivory is a 74-year-old male who presents to the office today for preoperative cardiac clearance. Patient is scheduled a transurethral bladder resection on 06/27/[address] Mcclendon for concerns of a bladder mass. Patient has a history of aortic stenosis diagnosed in 2012. Patient underwent coronary angiography which revealed 80% stenosis in the RCA and patient was referred to [facility] for aortic valve and RCA revascularization. Patient underwent AVR plus CABG x 1 (Perimount #23, SVG to RCA at [facility] on 02/12/2019). Patient did well postoperatively with echocardiogram demonstrating preserved ejection fraction, normally functioning prosthetic aortic valve with peak gradient 25 mmHg and mean gradient of 13 mmHg. Patient was diagnosed with an abdominal aortic aneurysm and was sent to [facility] for an opinion. It was noted to measure 5.1 cm on his abdominal pelvic CT scan. He did suggest to the surgeon that he was not currently interested in aortic surgery. He was seen in the emergency department 12/28/2021 for abdominal pain in which his CT scan demonstrated 5 cm infrarenal abdominal aortic aneurysm with adjacent retroperitoneal fluid suggesting of aneurysm leak. Patient was transferred to [facility] facility and on 12/28/2021 patient proceeded with thoracoretroperitoneal ruptured juxtarenal abdominal aortic aneurysm repair. His most recent echocardiogram 04/29/2023 demonstrated preserved ejection fraction, no regional wall motion abnormalities, aortic valve with peak gradient 25 mmHg and mean valve gradient 13 mmHg. Upon presentation to office today, patient reports doing fairly well. Patient shared his concerns of his bladder mass. He reports ongoing chronic SOB at rest and with activity x15 years and this is unchanged. He continues to smoke 1/2 pack a day. He monitors BP at home and reports readings 120- 160 systolic. Patient reports he does not routinely exercise. Other than shortness of breath which is described as chronic and unchanged, patient denies any other anginal or anginal equivalent symptoms today. Further ROS below. 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 Government Property Required: No Is patient in pain?: No Allergies No Known Allergies Allergy (Verified 06/19/24 07:41) Medications ???Medication ???Instructions ???Recorded ???Confirmed ???Type aspirin 81 mg tablet,delayed 81 mg PO DAILY heart health 06/19/24 History release rosuvastatin 5 mg tablet (Crestor) 5 mg PO DAILY cholesterol 06/19/24 History amlodipine 5 mg tablet 5 mg PO DAILY #30 tabs 02/28/23 Rx cholecalciferol (vitamin D3) 25 25 mcg PO DAILY 10/27/23 06/19/24 History mcg (1,000 unit) capsule metoprolol tartrate 25 mg tablet 12.5 mg (1/2 x 25 mg) PO BID #90 0 03/22/24 06/19/24 Rx tabs acetaminophen 500 mg capsule 1,000 mg PO Q6H PRN pain 06/13/24 06/19/24 History fluticasone fur. 200 mcg-umeclid 1 inh inhalation DAILY PRN SOB 08/3106/19/24 History 62.5 mcg-vilant 25 mcg inhalat.powder (Trelegy Ellipta) Ejection fraction %: 55 Have you fallen in the past year?: No Nurse's Note: surgery scheduled for june 27with Dr. Desouza [facility] Medical History Wears dentures Wears glasses Bruising Easy bruising High cholesterol Smoker Shortness of breath on exertion History of echocardiogram Cardiology follow-up encounter Stage 3b chronic kidney disease (CKD) Thrombocytopenia Chronic kidney insufficiency Pleural effusion Secondary pulmonary arterial hypertension Atherosclerotic heart disease of lummi coronary artery without angina pectoris Intention tremor Carotid stenosis, bilateral Hyperlipidemia Nonrheumatic aortic (valve) stenosis Essential hypertension Tobacco dependence Bilateral inguinal hernia Left carotid bruit Abdominal aortic aneurysm (AAA) Anemia Subcutaneous mass of back PUD (peptic ulcer disease) Cough Arthritis Surgical History Hx of inguinal hernia repair S/P inguinal h (more content not included)... Normal [facility] MR/PAT.Layla 06-13-2024 MR/PAT.JAVI [facility] Medical Records Department [address] [place] [address] PAT - Anesthesia 06/13/24 1208 MR#: [id number] Acct: [id number] Name: ABELARDO IVORY Rep #: [id number] : 1950 74 From: Edgar Khan MD PCP: Dr. Padmini Carrasco MD Status:PRE SDC Y Race: C [place] [facility] [place]Assessment Diagnosis/Proposed Procedure Planned Operative Procedure(s): Cysto,Transurethal Resec Bladder,Olympus Anesthesia History Anesthesia History - car runner: Anesthesia History - car runner Hx Hospitalization No 06/13/24 10:26 Any Problems With Anesthesia No 06/13/24 10:26 Cholinesterase deficiency No 06/13/24 10:26 You/Your Family Experience No 06/13/24 10:26 fever (hyperthermia) with Relationship Recent Exposure to Contagious No 01/18/24 10:01 Disease Does patient have nerve No 06/13/24 10:26 stimulator Patient instructed to have device shut off --Does patient have Pacemaker or ICD? When Was Last Pacemaker Check QUESTION #4 FULL TEXT: You/Your Family Experience fever (hyperthermia) with Anesthesia Last Oral Intake Last Oral intake: Last Oral Intake NPO since Meds taken in AM with sips of water? Meds patient instructed to take am of surgery PONV PONV - car runner: PONV - car runner Female No 06/13/24 10:26 HX of Motion Sickness No 06/13/24 10:26 HX of N/V After Surgery No 06/13/24 10:26 Non-Smoker No 06/13/24 10:26 Duration of Surgery greater Yes 06/13/24 10:26 than 60 minutes Number of Risk Factors 1 06/13/24 10:26 PONV Score Low Risk 06/13/24 10:26 Height Weight Height Weight: Anesthesia: Height Weight Height 5 ft 6 in 05/16/24 22:09 Respiratory Assessment Respiratory Assessment - car runner: Respiratory Tract Infection Hx - car runner Hx Respiratory Tract Infection No 06/13/24 10:26 STOP Sleep Apnea STOP Sleep Apnea - car runner: STOP Sleep Apnea - car runner Hx Hypertension Yes: CONTROLLED ON MED 06/13/24 10:26 Hx Sleep Apnea No 06/13/24 10:26 CPAP BIPAP Do you snore loudly (louder No 06/13/24 10:26 than talking or can be heard Do you often feel tired/ No 06/13/24 10:26 fatigued/ sleepy during daytime? Has anyone observed you stop No 06/13/24 10:26 breathing during sleep? STOP Results Negative 06/13/24 10:26 QUESTION #5 FULL TEXT : Do you snore loudly (louder than talking or can be heard through closed doors)? 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 Specify any problems Hx of Preganancy in last 3 N/A 06/13/24 10:26 Months Nurse Filling Out Transfusion VCHRISTIN 06/13/24 10:26 Questions: Date: 06/13/24 06/13/24 10:26 Time: 10:27 06/13/24 10:26 Patient unable to answer at this time (ie. confused, unrespo /Reproduction History /Reproductive History - car runner: /Reproductive Hx- car runner Hx Now Gestational Age (in weeks): EDC: Hx Hx Para Hx Section SAB PFSH Medical History (Updated 05/25/24 @ 00:01 by Background Daemon) Wears dentures Wears glasses Bruising Easy bruising High cholesterol Smoker Shortness of breath on exertion History of echocardiogram Cardiology follow-up encounter Stage 3b chronic kidney disease (CKD) Thrombocytopenia Chronic kidney insufficiency Pleural effusion Secondary pulmonary arterial hypertension Atherosclerotic heart disease of lummi coronary artery without angina pectoris Intention tremor Carotid stenosis, bilateral Hyperlipidemia Nonrheumatic aortic (valve) stenosis Essential hypertension Tobacco dependence Bilateral inguinal hernia Left carotid bruit Abdominal aortic aneurysm (AAA) Anemia Subcutaneous mass of back PUD (peptic ulcer disease) Cough Arthritis Home Medications ???Medication ???Instructions ???Recorded ???Last Taken ???Type aspirin 81 mg tablet,delayed 81 mg PO DAILY heart health 01/12/24 History (more content not included)... Normal [facility] Cytology report of Body flui d Cyto stainOrdered By: Pradip Mcclendon on 05-28-2024 Cytology report Cyto stain Doc (Body fld) SEE PATHOLOGY REPORT [facility] Comment on above: Specimen submitted t o Anatomical Pathology Department for testing. Cytology, Body Fluid / CSFon 05-28-2024 CYTOLOGY,BF/CSF SEE PATHOLOGY REPORT Normal [facility] Comment on above: Order Comment: URINE Result Comment: Spec imen submitted to Anatomical Pathology Department for testing. Performed By: #### L 350.1000 ####[facility] [address] [place], [address] Pap Stain (control)on 2024 Pap Stain (control) --- Patient Age/Sex Location Account Attending Physician ABELARDO IVORY 74/M LABSPEC [id number] Dr. Pradip Mcclendon MD Specimen: [id number] Received: 05/28/24-1600 Status: EZEQUIEL Mack Num: [id number] Spec Type: CYSPIN FL Subm Dr: Dr. 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 Urine, voided: * No malignant cells are identified CYTOLOGY STUDY Slides are reviewed. CYTOLOGY GROSS A. Received is 80 ml of red-cloudy fluid labeled with the patient's name and and designated per the requisition as urine. Submitted for cytology preparation. Mr 05/29/2024 CPT: 70131 Signed (signature on file) Dr. Sun Kunz, DO 05/29/24 1054 [facility] Comment on above: Performed By: #### L 506.1001, L509.1000, L503.0106 #### [facility] [address] [place], [address] Urine Cultureon 05-18-2024 URC Below infection leve l. COLONY COUNT 200 CFU/ML GNR lactose racehorse trainer [place] Count <1000 Normal [facility] Comment on above: Performed By: #### M 100.2200 ####[facility] [id number] [place], [address] Emergency Department Summary on 05-17-2024 Emergency Department Summary [facility] Medical Records Department [address] [place] [address] Emergency Department Summary 05/17/24 MR#: [id number] Acct: [id number] Name: ABELARDO IVORY Rep #: [id number] : 1950 74 From: Jeffery Turpin DO PCP: Dr. Padmini Carrasco MD Status:DEP ER Location: ED HPI History of Present Illness Chief Complaint: Complaint Informant: patient Narrative Narrative: Patient is a 74-year-old male with past medical history of COPD hypertension hyperlipidemia tobacco dependence and previous aortic aneurysm status post grafting. He states over the past few days he has been having sensation that he has to urinate frequently but when he does so only a small amount comes out and it is bloody in nature. He states he went to his family doctor who informed him he may have a kidney stone. Patient states that today he started noticing some right sided abdominal/back pain that concern for the stone. He also reports he felt his pain was worse than it has been over the last few days and therefore he comes in for evaluation. [facility] Medical History Wears dentures Wears glasses Bruising Easy bruising High cholesterol Smoker Shortness of breath on exertion History of echocardiogram Cardiology follow-up encounter Stage 3b chronic kidney disease (CKD) Thrombocytopenia Chronic kidney insufficiency Pleural effusion Secondary pulmonary arterial hypertension Atherosclerotic heart disease of lummi coronary artery without angina pectoris Intention tremor Carotid stenosis, bilateral Hyperlipidemia Nonrheumatic aortic (valve) stenosis Essential hypertension Tobacco dependence Bilateral inguinal hernia Left carotid bruit Abdominal aortic aneurysm (AAA) Anemia Subcutaneous mass of back PUD (peptic ulcer disease) Cough Arthritis Home Medications ???Medication ???Instructions ???Recorded ???Last Taken ???Type aspirin 81 mg tablet,delayed 81 mg PO DAILY heart health 01/12/24 History release rosuvastatin 5 mg tablet (Crestor) 5 mg PO DAILY cholesterol 03/02/22 History amlodipine 5 mg tablet 5 mg PO DAILY #30 tabs 02/28/23 Un known Rx calcium carbonate 500 mg PO DAILY 10/27/23 Unknown H istory cholecalciferol (vitamin D3) 25 25 mcg PO DAILY 10/27/23 Unknown H istory mcg (1,000 unit) capsule metoprolol tartrate 25 mg tablet 12.5 mg (1/2 x 25 mg) PO BID #90 0 03/22/24 Unknown Rx tabs fluticasone fur. 200 mcg-umeclid 1 inh inhalation DAILY #60 ea 03/10 06/01 Unknown Rx 62.5 mcg-vilant 25 mcg inhalat.powder (Trelegy Ellipta) cephalexin 500 mg capsule 500 mg PO TID 7 days #21 caps 05/08 Unknown Rx phenazopyridine 200 mg tablet 200 mg PO TID 2 days #6 tabs 05/17 Unknown Rx (Pyridium) tamsulosin 0.4 mg capsule (Flomax) 0.4 mg PO DAILY 14 days #14 caps 05/17/24 Unknown Rx Allergy/AdvReac Type Severity Reaction Status Date / Time No Known Allergies Allergy Verified 05/16/24 22:09 Family History Sister Asthma Mother Arthritis Diabetes Brother Cancer Unsure what kind- just a lump on his neck Surgical History Hx of inguinal hernia repair S/P inguinal hernia repair History of cardiac catheterization S/P AAA repair 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) History of left heart catheterization (11/27/18) History of aortic valve replacement (02/12/19) Social History Smoking Status: Current every day smoker tobacco type: cigarettes quit status: has quit before alcohol intake: never substance use type: does not use caffeine: Yes Type: coffee Number of servings: 3 what type of physical activity do you participate in: other frequency: 3-4 times per week seatbelt use: always ROS ROS ED Constitutional Constitutional ED: Denies chills or fever(s) ENT ENT ED: Denies sore throat Cardiovascular Cardiovascular: Denies chest pain Respiratory/Chest Respiratory/Chest: Denies cough or dyspnea Gastrointestinal Gastrointestinal: Reports abdominal pain; Denies diarrhea, melena, nausea or vomiting Genitourinary Genitourinary ED: Reports hematuria and urinary frequency; Denies dysuria Musculoskeletal Musculoskeletal: Reports back pain Integumentary Denies rash Neurologic Neurologic: Denies headache(s) Hematologic/Lymphatic Hematologic/Lymphatic: Denies easy bleeding or easy bruising EXAM Physical Exam Const Vital Signs: 05/16/24 22:09 05/16/24 22:09 05/16/24 23:00 Temperature 98 F 98 F 98 F Temperature Source Oral Oral Oral Pulse Rate 108 H 108 H 69 Respiratory Rate 19 H 19 H (more content not included)... Normal [facility] Abdomen/Pelvis without Conto n 05-16-2024 Abdomen/Pelvis without Cont [facility] Imaging Services [address] [place], [place] [address] Abdomen/Pelvis without Cont MR#: [id number] Acct: [id number] Name: ABELARDO IVORY Rep #: [id number] : 1950 M 74 From: Jaden fox MD PCP: Dr. Padmini Carrasco MD Status: [facility] ER Study: Abdomen/Pelvis without Cont Date of Exam: 11/01 Exam# [id number] Ordering Dr: Jeffery Turpin DO PROCEDURE: ABDOMEN/PELVIS WITHOUT CONT 05/16/2024 REASON FOR EXAM: FLANK PAIN TECHNIQUE: Abdomen and pelvis CT without intravenous contrast. Noncontrast technique limits evaluation of the abdominal and pelvic viscera. Coronal and Sagittal reconstruction series were provided. One or more dose reduction techniques were used (e.g., Automated exposure control, adjustment of the mA and/or kV according to patient size, use of iterative reconstruction technique). PATIENT PREPARATION: Per protocol ORAL CONTRAST TYPE: None. AMOUNT: mL COMPARISON: None FINDINGS: Lung bases: Calcified granulomas. Liver: Steatosis. Multiple calcified granulomas. Gallbladder: No ductal dilation. Gallbladder is unremarkable. Spleen: No splenomegaly. Multiple calcified granulomas. Pancreas: Normal size. No surrounding inflammation. Adrenals: Unremarkable Kidneys: No urolithiasis. No hydronephrosis. Bladder: Circumferential urinary bladder wall thickening, with surrounding soft tissue stranding, concerning for acute cystitis. Reproductive Organs: No prostatomegaly. Bowel: Stomach is unremarkable. No bowel dilation or wall thickening. Moderate colonic stool. Normal appendix. Few scattered colonic diverticuli, without evidence of diverticulitis. Appendix: Normal appendix. Lymph nodes: No suspicious lymph node enlargement. Vasculature: 4.1 cm infrarenal abdominal aortic aneurysm. Additional ectasia of the bilateral common iliac arteries. Severe diffuse atherosclerotic calcification of the abdominal aorta and iliac arteries. IVC is unremarkable. Peritoneum / Retroperitoneum: No pneumoperitoneum. No ascites. Bones: Degenerative changes of the spine. CT/Abdomen/Pelvis without Cont IMPRESSION: 1. Diffuse circumferential urinary bladder wall thickening with surrounding soft tissue stranding, concerning for acute cystitis. 2. 4.1 cm infrarenal aortic aneurysm. Reading Location: [facility] CC: Dr. Padmini Carrasco MD; Jeffery Turpin DO Banquet Supervisor: Signed Normal [facility] Absolute lymphocyte countOrd ered By: Jeffery Turpin on 05-16-2024 Lymphocytes Auto (Unsp spec) [#/Vol] 1.76 10*3/uL 0.83-4.51 [facility] Absolute neutrophil countOrd ered By: Jeffery Turpin on 05-16-2024 Neutrophils (Bld) [#/Vol] 4.7 10*3/uL 2.0-7.7 [facility] Anion gap in Serum or Plasma Ordered By: Jeffery Turpin on 05-16-2024 Anion gap [Moles/Vol] 14 mmol/L 5-15 [facility] Automated lymphocyte count a s percentage of total leukocytesOrdered By: Jeffery Turpin on 05-16-2024 Lymphocytes/100 WBC Auto (Unsp spec) 24.2 % 19-41 [facility] BUN/creatinine ratioOrdered By: Jeffrey Turpin on 05-16-2024 Urea nitrogen/Creatinine [Mass ratio] 20.9 mg/mg High 10-20 [facility] Basic Metabolic Profile (BMP )on 05-16-2024 BUN/CRE 20.9 RATIO High - [facility] Comment on above: Performed By: #### L 506.1001, L509.1000, L503.0106 #### [facility] [address] [place], [address] Calcium [Mass/Vol] 9.1 mg/dL Normal 7.6-11.0 [facility] Comment on above: Performed By: #### L 506.1001, L509.1000, L503.0106 #### [facility] [address] [place], [address] Chloride [Moles/Vol] 102 mmol/L Normal 98-108 [facility] Comment on above: Performed By: #### L 506.1001, L509.1000, L503.0106 #### [facility] [address] [place], [address] CO2 [Moles/Vol] 20.7 mmol/L Low 21.0-32.0 [facility] Comment on above: Performed By: #### L 506.1001, L509.1000, L503.0106 #### [facility] [address] [place], [address] Creatinine [Mass/Vol] 1.47 mg/dL High 0.70-1.20 [facility] Comment on above: Performed By: #### L 506.1001, L509.1000, L503.0106 #### [facility] [address] [place], [address] ECRCL 39.78 ml/min Low 50-250 [facility] Comment on above: Performed By: #### L 506.1001, L509.1000, L503.0106 #### [facility] [address] [place], [address] GAP 14 Normal 5-15 [facility] Comment on above: Performed By: #### L 506.1001, L509.1000, L503.0106 #### [facility] [address] [place], [address] GFR/1.73 sq M.predicted among non-blacks MDRD (S/P/Bld) [Vol rate/Area] 50 mL/min/{1.73_m2} Low >60 [facility] Comment on above: Result Comment: mL/m in/1.73m2 CKD-EPI Creatinine Equation (2020) Performed By: #### L 506.1001, L509.1000, L503.0106 #### [facility] [address] [place], [address] Glucose [Mass/Vol] 145 mg/dL High 70-99 [facility] Comment on above: Performed By: #### L 506.1001, L509.1000, L503.0106 #### [facility] [address] [place], [address] Potassium [Moles/Vol] 4.5 mmol/L Normal 3.3-5.1 [facility] Comment on above: Performed By: #### L 506.1001, L509.1000, L503.0106 #### [facility] [address] [place], [address] Sodium [Moles/Vol] 136 mmol/L Normal 133-145 [facility] Comment on above: Performed By: #### L 506.1001, L509.1000, L503.0106 #### [facility] [address] [place], [address] Urea nitrogen [Mass/Vol] 31 mg/dL High 4-19 [facility] Comment on above: Performed By: #### L 506.1001, L509.1000, L503.0106 #### [facility] [address] [place], [address] Basophil percentageOrdered B y: Jeffery Turpin on 05-16-2024 Basophils/100 WBC (Bld) 0.6 % 0-1 [facility] Bilirubin Test strip Ql (U)O rdered By: Jeffery Turpin on 05-16-2024 Bilirubin Ql (U) Negative Negative [facility] CBC W/Diff, Automatedon Absolute Lymph 1.76 X10 3/uL Normal 0.83-4.51 [facility] Comment on above: Performed By: #### L 506.1001, L509.1000, L503.0106 #### [facility] [address] [place], [address] Absolute Neut 4.7 X10 3/uL Normal 2.0-7.7 [facility] Comment on above: Performed By: #### L 506.1001, L509.1000, L503.0106 #### [facility] [address] [place], [address] Basophils/100 WBC (Bld) 0.6 % Normal 0-1 [facility] Comment on above: Performed By: #### L 506.1001, L509.1000, L503.0106 #### [facility] [address] [place], [address] Eosinophils/100 WBC (Bld) 2.2 % Normal 0-5 [facility] Comment on above: Performed By: #### L 506.1001, L509.1000, L503.0106 #### [facility] [address] [place], [address] Erythrocyte distribution width (RBC) [Ratio] 12.8 % Normal 11.6-14.6 [facility] Comment on above: Performed By: #### L 506.1001, L509.1000, L503.0106 #### [facility] [address] [place], [address] Hematocrit (Bld) [Volume fraction] 42.7 % Normal 40-54 [facility] Comment on above: Performed By: #### L 506.1001, L509.1000, L503.0106 #### [facility] [address] [place], [address] Hemoglobin (Bld) [Mass/Vol] 14.1 g/dL Normal 13.0-16.5 [facility] Comment on above: Performed By: #### L 506.1001, L509.1000, L503.0106 #### [facility] [address] [place], [address] IG% 0.300 Normal 0.0-0.9 [facility] Comment on above: Result Comment: IG% - Immature Granulocytes (promyelocytes, myelocytes and metamyelocytes) > 1% indicates that a LEFT SHIFT is Present. Performed By: #### L 506.1001, L509.1000, L503.0106 #### [facility] [address] [place], [address] Lymphocytes/100 WBC (Bld) 24.2 % Normal 19-41 [facility] Comment on above: Performed By: #### L 506.1001, L509.1000, L503.0106 #### [facility] [address] [place], [address] MCH (RBC) [Entitic mass] 30.4 pg Normal 27.0-32.0 [facility] Comment on above: Performed By: #### L 506.1001, L509.1000, L503.0106 #### [facility] [address] [place], [address] MCHC (RBC) [Mass/Vol] 33.0 g/dL Normal 32-36 [facility] Comment on above: Performed By: #### L 506.1001, L509.1000, L503.0106 #### [facility] [address] [place], [address] MCV (RBC) [Entitic vol] 92.0 fL Normal 80-94 [facility] Comment on above: Performed By: #### L 506.1001, L509.1000, L503.0106 #### [facility] [address] [place], [address] Monocytes/100 WBC (Bld) 8.1 % Normal 0-10 [facility] Comment on above: Performed By: #### L 506.1001, L509.1000, L503.0106 #### [facility] [address] [place], [address] Neutrophils/100 WBC (Bld) 64.6 % Normal 47-70 [facility] Comment on above: Performed By: #### L 506.1001, L509.1000, L503.0106 #### [facility] [address] [place], [address] Nucleated RBC (Bld) [#/Vol] 0 10*3/uL Normal 0-5 [facility] Comment on above: Performed By: #### L 506.1001, L509.1000, L503.0106 #### [facility] [address] [place], [address] Platelet mean volume (Bld) [Entitic vol] 8.5 fL Normal 6.2-12.0 [facility] Comment on above: Performed By: #### L 506.1001, L509.1000, L503.0106 #### [facility] [address] [place], [address] Platelets (Bld) [#/Vol] 151 10*3/uL Normal 150-450 [facility] Comment on above: Performed By: #### L 506.1001, L509.1000, L503.0106 #### [facility] [address] [place], [address] RBC (Bld) [#/Vol] 4.64 10*6/uL Normal 4.6-6.2 [facility] Comment on above: Performed By: #### L 506.1001, L509.1000, L503.0106 #### [facility] [address] [place], [address] RDW SD 43.4 fl Normal 35.1-43.9 [facility] Comment on above: Performed By: #### L 506.1001, L509.1000, L503.0106 #### [facility] [address] [place], [address] WBC (Bld) [#/Vol] 7.3 10*3/uL Normal 4.4-11.0 [facility] Comment on above: Performed By: #### L 506.1001, L509.1000, L503.0106 #### [facility] [address] [place], [address] Carbon dioxide, total [Moles /volume] in Central venous bloodOrdered By: Jeffery Turpin on 05-16-2024 CO2 [Moles/Vol] 20.7 mmol/L Low 21.0-32.0 [facility] Chloride assayOrdered By: Kelly Turpin on 05-16-2024 Chloride [Moles/Vol] 102 mmol/L 98-108 [facility] Eosinophil percentageOrdered By: Jeffery Turpin on 05-16-2024 Eosinophils/100 WBC (Bld) 2.2 % 0-5 [facility] Epithelial cells.squamous LM Ql (Urine sed)Ordered By: Jeffery Turpin on 05-16-2024 Epithelial cells.squamous LM.HPF (Urine sed) [#/Area] 0 /[HPF] 0-5 [facility] Erythrocyte distribution wid th (RBC) [Ratio]Ordered By: Jeffery Turpin on 05-16-2024 Erythrocyte distribution width (RBC) [Entitic vol] 43.4 fL 35.1-43.9 [facility] Erythrocyte distribution wid th ratioOrdered By: Jeffery Turpin on 05-16-2024 Erythrocyte distribution width (RBC) [Ratio] 12.8 % 11.6-14.6 [facility] Erythrocyte distribution wid th standard deviationOrdered By: Jeffery Turpin on 05-16-2024 Erythrocyte distribution width (RBC) [Ratio] 43.4 fl 35.1-43.9 [facility] Estimation of creatinine dominique aranceOrdered By: Jeffery Turpin on 05-16-2024 Estimated Creatinine Clearance Calc 39.78 ml/min Low 50-250 [facility] GFR/1.73 sq M.predicted kasie g non-blacks MDRD (S/P/Bld) [Vol rate/Area]Ordered By: Jeffery Turpin on 05-16-2024 Estimated GFR (MDRD) Non-Af Amer 50 Low >60 [facility] Comment on above: mL/min/1.73m2 CKD-EP I Creatinine Equation (2020) Glomerular filtration rate ( GFR) estimation/1.73 sq m using serum, plasma, or whole bOrdered By: Jeffery Turpin on 05-16-2024 GFR/1.73 sq M.predicted among non-blacks MDRD (S/P/Bld) [Vol rate/Area] 50 mL/min/{1.73_m2} Low >60 [facility] Comment on above: mL/min/1.73m2 CKD-EP I Creatinine Equation (2020) Glucose Ql (U)Ordered By: Kelly Turpin on 05-16-2024 Urine Glucose (UA) Normal mg/dl Normal [facility] Hematocrit Auto (Bld) [Volum e fraction]Ordered By: Jeffery Turpin on 05-16-2024 Hematocrit (Bld) [Volume fraction] 42.7 % 40-54 [facility] Hemoglobin measurementOrdere d By: Jeffery Turpin on 05-16-2024 Hemoglobin (Bld) [Mass/Vol] 14.1 g/dL 13.0-16.5 [facility] Immature granulocytes/100 WB C Auto (Bld)Ordered By: Jeffery Turpin on 05-16-2024 Immature granulocytes/100 WBC (Bld) 0.300 % 0.0-0.9 [facility] Comment on above: IG% - Immature Granu locytes (promyelocytes, myelocytes and metamyelocytes) > 1% indicates that a LEFT SHIFT is Present. Ketones Test strip Ql (U)Ord ered By: Jeffery Turpin on 05-16-2024 Ketones Ql (U) Negative Negative [facility] Lymphocytes Auto (Unsp spec) [#/Vol]Ordered By: Jeffery Turpin on 05-16-2024 Lymphocytes (Bld) [#/Vol] 1.76 10*3/uL 0.83-4.51 [facility] Lymphocytes/100 WBC Auto (Un sp spec)Ordered By: Jeffery Turpin on 05-16-2024 Lymphocytes/100 WBC (Bld) 24.2 % 19-41 [facility] MCV (mean corpuscular volume ) determinationOrdered By: Jeffery Turpin on 05-16-2024 MCV (RBC) [Entitic vol] 92.0 fL 80-94 [facility] Mean corpuscular hemoglobin (MCH) determinationOrdered By: Jeffery Turpin on 05-16-2024 MCH (RBC) [Entitic mass] 30.4 pg 27.0-32.0 [facility] Mean corpuscular hemoglobin concentration (MCHC) determinationOrdered By: Jeffery Turpin on 05-16-2024 MCHC (RBC) [Mass/Vol] 33.0 g/dL 32-36 [facility] Mean platelet volume determi nationOrdered By: Jeffery Turpin on 05-16-2024 Platelet mean volume (Bld) [Entitic vol] 8.5 fL 6.2-12.0 [facility] Microscopic analysis of urin e for red blood cells (RBC)Ordered By: Jeffery Turpin on 05-16-2024 Microscopic analysis of urine for red blood cells (RBC) > 100 SEEN /hpf 0-5 [facility] Comment on above: Microscopic field is filled. Other elements may be obscured. Urine RBC > 100 SEEN /hpf 0-5 [facility] Comment on above: Microscopic field is filled. Other elements may be obscured. Monocyte percentageOrdered B y: Jeffery Turpin on 05-16-2024 Monocytes/100 WBC (Bld) 8.1 % 0-10 [facility] Mucus LM Ql (Urine sed)Order ed By: Jeffery Turpin on 05-16-2024 Mucus Ql (Urine sed) 0 SEEN /hpf [facility] Neutrophil percentageOrdered By: Jeffery Turpin on 05-16-2024 Neutrophils/100 WBC (Bld) 64.6 % 47-70 [facility] Nitrite Test strip Ql (U)Ord ered By: Jeffery Turpin on 05-16-2024 Nitrite Ql (U) Positive High Negative [facility] Nucleated red blood cell per centageOrdered By: Jeffery Turpin on 05-16-2024 Nucleated RBC/100 WBC (Bld) [Ratio] 0 % 0-5 [facility] Platelet countOrdered By: Kelly Turpin on 05-16-2024 Platelets (Bld) [#/Vol] 151 10*3/uL 150-450 [facility] Potassium (Unsp spec) [Mass/ Vol]Ordered By: Jeffery Turpin on 05-16-2024 Potassium [Moles/Vol] 4.5 mmol/L 3.3-5.1 [facility] Potassium measurement (mass/ volume)Ordered By: Jeffery Turpin on 05-16-2024 Potassium (Unsp spec) [Mass/Vol] 4.5 mmol/L 3.3-5.1 [facility] Protein Test strip Ql (U)Ord ered By: Jeffery Turpin on 05-16-2024 Protein Ql (U) 100 mg/dl High Negative [facility] RBC Auto (Bld) [#/Vol]Ordere d By: Jeffery Turpin on 05-16-2024 RBC (Bld) [#/Vol] 4.64 10*6/uL 4.6-6.2 [facility] RBC casts LM Ql (Urine sed)O rdered By: Jeffery Turpin on 05-16-2024 Urine Red Blood Cell Casts 0-5 SEEN /lpf None Seen [facility] Serum creatinine measurement (mass/volume)Ordered By: Jeffery Turpin on 05-16-2024 Creatinine [Mass/Vol] 1.47 mg/dL High 0.70-1.20 [facility] Serum glucose measurement (m ass/volume)Ordered By: Jeffery Turpin on 05-16-2024 Glucose [Mass/Vol] 145 mg/dL High 70-99 [facility] Serum or plasma calcium jamel urement (mass/volume)Ordered By: Jeffery Turpin on 05-16-2024 Calcium [Mass/Vol] 9.1 mg/dL 7.6-11.0 [facility] Serum or plasma urea nitroge n measurement (mass/volume)Ordered By: Jeffery Turpin on 05-16-2024 Urea nitrogen [Mass/Vol] 31 mg/dL High 4-19 [facility] Sodium levelOrdered By: Dmoo Turpin on 05-16-2024 Sodium [Moles/Vol] 136 mmol/L 133-145 [facility] Squamous epithelial cells de tection in urine sediment by light microscopyOrdered By: Jeffery Turpin on 05-16-2024 Epithelial cells.squamous LM Ql (Urine sed) 0-5 SEEN /hpf 0-5 [facility] Urinalysis, Completeon 05-16 BACTERIA 1+ /hpf Normal None Seen [facility] Comment on above: Order Comment: COLOR OF URINE MAY AFFECT DIPSTICK RESULTS.CLEAN CATCH Performed By: #### L 400.0001 ####[facility] [address] [place], [address] CAST,RBC 0-5 SEEN Normal None Seen [facility] Comment on above: Order Comment: COLOR OF URINE MAY AFFECT DIPSTICK RESULTS.CLEAN CATCH Performed By: #### L 400.0001 ####[facility] [address] [place], [address] EPI,SQUAMOUS 0-5 SEEN Normal 0-5 [facility] Comment on above: Order Comment: COLOR OF URINE MAY AFFECT DIPSTICK RESULTS.CLEAN CATCH Performed By: #### L 400.0001 ####[facility] [address] [place], [address] RBC > 100 SEEN Normal 0-5 [facility] Comment on above: Order Comment: COLOR OF URINE MAY AFFECT DIPSTICK RESULTS.CLEAN CATCH Result Comment: Micr oscopic field is filled. Other elements may be obscured. Performed By: #### L 400.0001 ####[facility] [address] [facility] [address] WBC 10-25 SEEN Normal 0-5 [facility] Comment on above: Order Comment: COLOR OF URINE MAY AFFECT DIPSTICK RESULTS.CLEAN CATCH Performed By: #### L 400.0001 ####[facility] [address] [place], [address] BILIRUBIN URINE Negative Normal Negative [facility] Comment on above: Order Comment: COLOR OF URINE MAY AFFECT DIPSTICK RESULTS.CLEAN CATCH Performed By: #### L 400.0001 ####[facility] [address] [facility] [address] Clarity (U) Cloudy Normal Clear [facility] Comment on above: Order Comment: COLOR OF URINE MAY AFFECT DIPSTICK RESULTS.CLEAN CATCH Performed By: #### L 400.0001 ####[facility] [address] [place] [phone] Color (U) Red Normal Yellow [facility] Comment on above: Order Comment: COLOR OF URINE MAY AFFECT DIPSTICK RESULTS.CLEAN CATCH Performed By: #### L 400.0001 ####[facility] [address] [place] [phone] GLUCOSE, UR Normal Normal Normal [facility] Comment on above: Order Comment: COLOR OF URINE MAY AFFECT DIPSTICK RESULTS.CLEAN CATCH Performed By: #### L 400.0001 ####[facility] [address] [place] [phone] KETONE UR Negative Normal Negative [facility] Comment on above: Order Comment: COLOR OF URINE MAY AFFECT DIPSTICK RESULTS.CLEAN CATCH Performed By: #### L 400.0001 ####[facility] [address] [place] [phone] LEUK ESTERASE 25 /ul Abnormal Negative [facility] Comment on above: Order Comment: COLOR OF URINE MAY AFFECT DIPSTICK RESULTS.CLEAN CATCH Performed By: #### L 400.0001 ####[facility] [address] [place], [address] Nitrite Ql (U) Positive Abnormal Negative [facility] Comment on above: Order Comment: COLOR OF URINE MAY AFFECT DIPSTICK RESULTS.CLEAN CATCH Performed By: #### L 400.0001 ####[facility] [address] [place], [address] OCCULT BLOOD-UR 250 /ul Abnormal Negative [facility] Comment on above: Order Comment: COLOR OF URINE MAY AFFECT DIPSTICK RESULTS.CLEAN CATCH Performed By: #### L 400.0001 ####[facility] [address] [place], [address] pH UR 6.0 Normal 5.0 - 8.0 [facility] Comment on above: Order Comment: COLOR OF URINE MAY AFFECT DIPSTICK RESULTS.CLEAN CATCH Performed By: #### L 400.0001 ####[facility] [address] [place], [address] PROT DIPSTX 100 mg/dl Abnormal Negative [facility] Comment on above: Order Comment: COLOR OF URINE MAY AFFECT DIPSTICK RESULTS.CLEAN CATCH Performed By: #### L 400.0001 ####[facility] [address] [place], [address] SP.GR. DIPSTX 1.020 Normal 1.002-1.030 [facility] Comment on above: Order Comment: COLOR OF URINE MAY AFFECT DIPSTICK RESULTS.CLEAN CATCH Performed By: #### L 400.0001 ####[facility] [address] [place], [address] UROBILI Normal Normal Normal [facility] Comment on above: Order Comment: COLOR OF URINE MAY AFFECT DIPSTICK RESULTS.CLEAN CATCH Performed By: #### L 400.0001 ####[facility] [address] [place], [address] Mucus Ql (Urine sed) 0 SEEN Normal [facility] Comment on above: Order Comment: COLOR OF URINE MAY AFFECT DIPSTICK RESULTS.CLEAN CATCH Performed By: #### L 400.0001 ####[facility] [address] [place], [address] Urine blood detectionOrdered By: Jeffery Turpin on 05-16-2024 Urine Occult Blood 250 /ul High Negative [facility] Urine clarityOrdered By: Kevin Turpin on 05-16-2024 Clarity (U) Cloudy Clear [facility] Urine color determinationOrd ered By: Jeffery Turpin on 05-16-2024 Color (U) Red Yellow [facility] Urine cultureOrdered By: Kevin Turpin on 05-16-2024 Bacteria identified 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 [facility] Urine glucose detectionOrder ed By: Jeffery Turpin on 05-16-2024 Glucose Ql (U) Normal mg/dl Normal [facility] Urine leukocyte esterase det ection by dipstickOrdered By: Jeffery Turpin on 05-16-2024 Leukocyte esterase Test strip Ql (U) 25 /ul High Negative [facility] Urine pHOrdered By: Jeffery de la torre on 05-16-2024 pH (U) 6.0 [pH] 5.0 - 8.0 [facility] Urine sediment bacteria coun t by microscopy (number/high power field)Ordered By: Jeffery Turpin on 05-16-2024 Bacteria LM.HPF (Urine sed) [#/Area] 1 /[HPF] None Seen [facility] Urine sediment erythrocyte c ast detection by light microscopyOrdered By: Jeffery Turpin on 05-16-2024 RBC casts LM Ql (Urine sed) 0-5 SEEN /lpf None Seen [facility] Urine specific gravity measu rementOrdered By: Jeffery Turipn on 05-16-2024 Specific gravity (U) [Rel density] 1.020 1.002-1.030 [facility] Urine urobilinogen measureme ntOrdered By: Jeffery Turpin on 05-16-2024 Urobilinogen Ql (U) Normal mg/dl Normal [facility] Urobilinogen Ql (U)Ordered B y: Jeffery Turpin on 05-16-2024 Urine Urobilinogen Normal mg/dl Normal [facility] White blood cell (WBC) count Ordered By: Jeffery Turpin on 05-16-2024 WBC (Bld) [#/Vol] 7.3 10*3/uL 4.4-11.0 [facility] White blood cell countOrdere d By: Jeffery Turpin on 05-16-2024 Urine WBC 10-25 SEEN /hpf 0-5 [facility] White blood cell count 10-25 SEEN /hpf 0-5 [facility] Anion gap in Serum or Plasma Ordered By: Padmini Carrasco on 05-10-2024 Anion gap [Moles/Vol] 12 mmol/L 5-15 [facility] BUN/creatinine ratioOrdered By: Padmini Carrasco on 05-10-2024 Urea nitrogen/Creatinine [Mass ratio] 16.8 mg/mg 10-20 [facility] Basic Metabolic Profile (BMP )on 05-10-2024 BUN Normal 4-19 [facility] Comment on above: Order Comment: Order Date: 06/16/23Order Info: [id number] - BMP Result Comment: ADDE D TO 05/10/24 LAB DRAW Performed By: #### L 506.1001, L509.1000, L503.0106 #### [facility] [address] [place], [address] BUN/CRE Normal 10-20 [facility] Comment on above: Order Comment: Order Date: 06/16/23Order Info: [id number] - BMP Result Comment: ADDE D TO 05/10/24 LAB DRAW Performed By: #### L 506.1001, L509.1000, L503.0106 #### [facility] [address] [place], [address] Calcium Normal 7.6-11.0 [facility] Comment on above: Order Comment: Order Date: 06/16/23Order Info: [id number] - BMP Result Comment: ADDE D TO 05/10/24 LAB DRAW Performed By: #### L 506.1001, L509.1000, L503.0106 #### [facility] [address] [place], [address] CL Normal 98-108 [facility] Comment on above: Order Comment: Order Date: 06/16/23Order Info: [id number]- - BMP Result Comment: ADDE D TO 05/10/24 LAB DRAW Performed By: #### L 506.1001, L509.1000, L503.0106 #### [facility] [address] [place] [place], [address] CO2 Normal 21.0-32.0 [facility] Comment on above: Order Comment: Order Date: 06/16/23Order Info: [id number]- - BMP Result Comment: ADDE D TO 05/10/24 LAB DRAW Performed By: #### L 506.1001, L509.1000, L503.0106 #### [facility] [address] [place], [address] CREAT,SERUM Normal 0.70-1.20 [facility] Comment on above: Order Comment: Order Date: 06/16/23Order Info: [id number] - BMP Result Comment: ADDE D TO 05/10/24 LAB DRAW Performed By: #### L 506.1001, L509.1000, L503.0106 #### [facility] [address] [place], [address] eGFR Normal >60 [facility] Comment on above: Order Comment: Order Date: 06/16/23Order Info: [id number] - BMP Result Comment: ADDE D TO 05/10/24 LAB DRAW Performed By: #### L 506.1001, L509.1000, L503.0106 #### [facility] [address] [place], [address] GAP Normal 5-15 [facility] Comment on above: Order Comment: Order Date: 06/16/23Order Info: 666- - BMP Result Comment: ADDE D TO 05/10/24 LAB DRAW Performed By: #### L 506.1001, L509.1000, L503.0106 #### [facility] [address] [place], [address] GLU Normal 70-99 [facility] Comment on above: Order Comment: Order Date: 06/16/23Order Info: [id number] - BMP Result Comment: ADDE D TO 05/10/24 LAB DRAW Performed By: #### L 506.1001, L509.1000, L503.0106 #### [facility] [address] [place], [address] Potassium Normal 3.3-5.1 [facility] Comment on above: Order Comment: Order Date: 06/16/23Order Info: [id number]- - BMP Result Comment: ADDE D TO 05/10/24 LAB DRAW Performed By: #### L 506.1001, L509.1000, L503.0106 #### [facility] [address] [place], [address] Basic Metabolic Profile (BMP) Normal 133-145 [facility] Comment on above: Order Comment: Order Date: 06/16/23Order Info: [id number] - BMP Result Comment: ADDE D TO 05/10/24 LAB DRAW Performed By: #### L 506.1001, L509.1000, L503.0106 #### [facility] [address] [place], [address] Bilirubin, totalOrdered By: Padmini Carrasco on 05-10-2024 Bilirubin [Mass/Vol] 0.18 mg/dL 0.00-1.30 [facility] CBC-Complete Blood Cnt No Di ffon 05-10-2024 Erythrocyte distribution width (RBC) [Ratio] 13.2 % Normal 11.6-14.6 [facility] Comment on above: Order Comment: Order Date: 10/12/23Order Info: [id number] - CBC Performed By: #### L 506.1001, L509.1000, L503.0106 #### [facility] [address] [place], [address] Hematocrit (Bld) [Volume fraction] 42.5 % Normal 40-54 [facility] Comment on above: Order Comment: Order Date: 10/12/23Order Info: [id number] - CBC Performed By: #### L 506.1001, L509.1000, L503.0106 #### [facility] [address] [place], [address] Hemoglobin (Bld) [Mass/Vol] 13.6 g/dL Normal 13.0-16.5 [facility] Comment on above: Order Comment: Order Date: 10/12/23Order Info: [id number] - CBC Performed By: #### L 506.1001, L509.1000, L503.0106 #### [facility] [address] [place], [address] MCH (RBC) [Entitic mass] 30.0 pg Normal 27.0-32.0 [facility] Comment on above: Order Comment: Order Date: 10/12/23Order Info: [id number] - CBC Performed By: #### L 506.1001, L509.1000, L503.0106 #### [facility] [address] [place], [address] MCHC (RBC) [Mass/Vol] 32.0 g/dL Normal 32-36 [facility] Comment on above: Order Comment: Order Date: 10/12/23Order Info: [id number] - CBC Performed By: #### L 506.1001, L509.1000, L503.0106 #### [facility] [address] [place], [address] MCV (RBC) [Entitic vol] 93.8 fL Normal 80-94 [facility] Comment on above: Order Comment: Order Date: 10/12/23Order Info: [id number] - CBC Performed By: #### L 506.1001, L509.1000, L503.0106 #### [facility] [address] [place], [address] Platelet mean volume (Bld) [Entitic vol] 9.2 fL Normal 6.2-12.0 [facility] Comment on above: Order Comment: Order Date: 10/12/23Order Info: [id number] - CBC Performed By: #### L 506.1001, L509.1000, L503.0106 #### [facility] [address] [place], [address] Platelets (Bld) [#/Vol] 168 10*3/uL Normal 150-450 [facility] Comment on above: Order Comment: Order Date: 10/12/23Order Info: [id number] - CBC Performed By: #### L 506.1001, L509.1000, L503.0106 #### [facility] [address] [place], [address] RBC (Bld) [#/Vol] 4.53 10*6/uL Low 4.6-6.2 [facility] Comment on above: Order Comment: Order Date: 10/12/23Order Info: [id number] - CBC Performed By: #### L 506.1001, L509.1000, L503.0106 #### [facility] [address] [place], [address] RDW SD 45.1 fl High 35.1-43.9 [facility] Comment on above: Order Comment: Order Date: 10/12/23Order Info: [id number] - CBC Performed By: #### L 506.1001, L509.1000, L503.0106 #### [facility] [address] [place], [address] WBC (Bld) [#/Vol] 6.9 10*3/uL Normal 4.4-11.0 [facility] Comment on above: Order Comment: Order Date: 10/12/23Order Info: [id number] - CBC Performed By: #### L 506.1001, L509.1000, L503.0106 #### [facility] [address] [place], [address] HCT Normal 40-54 [facility] Comment on above: Order Comment: Order Date: 10/12/23 Order Info: [id number] - CMP Order Info: [id number] - LIPID Order Info: [id number] - TSH Order Info: [id number] - PSA Order Info: [id number] Result Comment: ADDE D TO 05/10/24 LAB DRAW Performed By: #### L 506.1001, L509.1000, L503.0106 #### [facility] [address] [place], [address] HGB Normal 13.0-16.5 [facility] Comment on above: Order Comment: Order Date: 10/12/23 Order Info: [id number] - CMP Order Info: [id number] - LIPID Order Info: 3 - TSH Order Info: [id number] - PSA Order Info: [id number] - Result Comment: ADDE D TO 05/10/24 LAB DRAW Performed By: #### L 506.1001, L509.1000, L503.0106 #### [facility] [address] [place], [address] MCH Normal 27.0-32.0 [facility] Comment on above: Order Comment: Order Date: 10/12/23 Order Info: [id number] - CMP Order Info: [id number] - LIPID Order Info: [id number] - TSH Order Info: [id number] - PSA Order Info: [id number] - Result Comment: ADDE D TO 05/10/24 LAB DRAW Performed By: #### L 506.1001, L509.1000, L503.0106 #### [facility] [address] [place], [address] MCHC Normal 32-36 [facility] Comment on above: Order Comment: Order Date: 10/12/23 Order Info: [id number] - CMP Order Info: [id number] - LIPID Order Info: [id number] - TSH Order Info: [id number] - PSA Order Info: [id number] Result Comment: ADDE D TO 05/10/24 LAB DRAW Performed By: #### L 506.1001, L509.1000, L503.0106 #### [facility] [address] [place], [address] MCV Normal 80-94 [facility] Comment on above: Order Comment: Order Date: 10/12/23 Order Info: [id number] - CMP Order Info: [id number] - LIPID Order Info: [id number] - TSH Order Info: [id number] - PSA Order Info: [id number] Result Comment: ADDE D TO 05/10/24 LAB DRAW Performed By: #### L 506.1001, L509.1000, L503.0106 #### [facility] [address] [place], [address] PLT Normal 150-450 [facility] Comment on above: Order Comment: Order Date: 10/12/23 Order Info: [id number] - CMP Order Info: [id number] - LIPID Order Info: [id number] - TSH Order Info: [id number] - PSA Order Info: [id number] Result Comment: ADDE D TO 05/10/24 LAB DRAW Performed By: #### L 506.1001, L509.1000, L503.0106 #### [facility] [address] [place], [address] RBC Normal 4.6-6.2 [facility] Comment on above: Order Comment: Order Date: 10/12/23 Order Info: 86-1 - CMP Order Info: [id number] - LIPID Order Info: [id number] - TSH Order Info: 2856-02 - PSA Order Info: 2497-05 Result Comment: ADDE D TO 05/10/24 LAB DRAW Performed By: #### L 506.1001, L509.1000, L503.0106 #### [facility] [address] [place], [address] RDW CV Normal 11.6-14.6 [facility] Comment on above: Order Comment: Order Date: 10/12/23 Order Info: 785-1 - CMP Order Info: - LIPID Order Info: 3 - TSH Order Info: 1 - PSA Order Info: 2497-05 Result Comment: ADDE D TO 05/10/24 LAB DRAW Performed By: #### L 506.1001, L509.1000, L503.0106 #### [facility] [address] [place], [address] RDW SD Normal 35.1-43.9 [facility] Comment on above: Order Comment: Order Date: 10/12/23 Order Info: 785-02 - CMP Order Info: - LIPID Order Info: 3 - TSH Order Info: 2856-02 - PSA Order Info: 2497-05 Result Comment: ADDE D TO 05/10/24 LAB DRAW Performed By: #### L 506.1001, L509.1000, L503.0106 #### [facility] [address] [place], [address] WBC Normal 4.4-11.0 [facility] Comment on above: Order Comment: Order Date: 10/12/23 Order Info: 785-02 - CMP Order Info: - LIPID Order Info: 3 - TSH Order Info: 2856-02 - PSA Order Info: 2497-05 Result Comment: ADDE D TO 05/10/24 LAB DRAW Performed By: #### L 506.1001, L509.1000, L503.0106 #### [facility] [address] [place], [address] Calculated very low density lipoprotein (VLDL) cholesterol measurementOrdered By: Padmini Carrasco on 05-10-2024 Calculated very low density lipoprotein (VLDL) cholesterol measurement 31 mg/dL 5-40 [facility] VLDL Cholesterol 31 mg/dL 5-40 [facility] Carbon dioxide, total [Moles /volume] in Central venous bloodOrdered By: Padmini Carrasco on 05-10-2024 CO2 [Moles/Vol] 22.7 mmol/L 21.0-32.0 [facility] Chloride assayOrdered By: Rambo Carrasco on 05-10-2024 Chloride [Moles/Vol] 104 mmol/L 98-108 [facility] Comprehensive Metabolic Prof ilon 05-10-2024 Albumin [Mass/Vol] 3.9 g/dL Normal 3.4-4.8 [facility] Comment on above: Order Comment: Order Date: 10/12/23 Order Info: 785- - CMP Order Info: - LIPID Order Info: 3015-04 - TSH Order Info: 2856-02 - PSA Order Info: 2497-05 - FE Performed By: #### L 506.1001, L509.1000, L503.0106 #### [facility] [address] [place], [place], [id number] Albumin/Globulin [Mass ratio] 1.4 {ratio} Normal 0.9-2.4 [facility] Comment on above: Order Comment: Order Date: 10/12/23 Order Info: 785-02 - CMP Order Info: - LIPID Order Info: 3015-04 - TSH Order Info: 2856-02 - PSA Order Info: 2497-05 - FE Performed By: #### L 506.1001, L509.1000, L503.0106 #### [facility] [address] [place], [place], [address] ALK PHOS 73 U/L Normal 40-129 [facility] Comment on above: Order Comment: Order Date: 10/12/23 Order Info: 785-02 - CMP Order Info: - LIPID Order Info: 3 - TSH Order Info: 2856-02 - PSA Order Info: 24909-10 - FE Performed By: #### L 506.1001, L509.1000, L503.0106 #### [facility] [address] [place], [address] ALT [Catalytic activity/Vol] 6 U/L Normal <=46 [facility] Comment on above: Order Comment: Order Date: 10/12/23 Order Info: 86-1 - CMP Order Info: 30026-8 - LIPID Order Info: 3 - TSH Order Info: 2851 - PSA Order Info: 2498-4 - FE Performed By: #### L 506.1001, L509.1000, L503.0106 #### [facility] [address] [place], [address] AST [Catalytic activity/Vol] 16 U/L Normal <=37 [facility] Comment on above: Order Comment: Order Date: 10/12/23 Order Info: 785-1 - CMP Order Info: [id number] - LIPID Order Info: 3 - TSH Order Info: 2856-02 - PSA Order Info: 2494 - FE Performed By: #### L 506.1001, L509.1000, L503.0106 #### [facility] [address] [place], [address] Bilirubin [Mass/Vol] 0.18 mg/dL Normal 0.00-1.30 [facility] Comment on above: Order Comment: Order Date: 10/12/23 Order Info: 785-02 - CMP Order Info: 62443-0 - LIPID Order Info: 3 - TSH Order Info: 2856-02 - PSA Order Info: [id number] - FE Performed By: #### L 506.1001, L509.1000, L503.0106 #### [facility] [address] [place], [address] BUN/CRE 16.8 RATIO Normal 10-20 [facility] Comment on above: Order Comment: Order Date: 10/12/23 Order Info: 785-1 - CMP Order Info: 99939-3 - LIPID Order Info: 3 - TSH Order Info: 2856-02 - PSA Order Info: 24984 - FE Performed By: #### L 506.1001, L509.1000, L503.0106 #### [facility] [address] [place], [address] Calcium [Mass/Vol] 9.0 mg/dL Normal 7.6-11.0 [facility] Comment on above: Order Comment: Order Date: 10/12/23 Order Info: 0786-1 - CMP Order Info: [id number] - LIPID Order Info: 3016-3 - TSH Order Info: 2857-1 - PSA Order Info: 2498-4 - FE Performed By: #### L 506.1001, L509.1000, L503.0106 #### [facility] [address] [place], [address] Chloride [Moles/Vol] 104 mmol/L Normal 98-108 [facility] Comment on above: Order Comment: Order Date: 10/12/23 Order Info: 785-1 - CMP Order Info: [id number] - LIPID Order Info: 3 - TSH Order Info: 2857-1 - PSA Order Info: 2498-4 - FE Performed By: #### L 506.1001, L509.1000, L503.0106 #### [facility] [address] [place], [address] CO2 [Moles/Vol] 22.7 mmol/L Normal 21.0-32.0 [facility] Comment on above: Order Comment: Order Date: 10/12/23 Order Info: 0786-1 - CMP Order Info: [id number] - LIPID Order Info: 3016-3 - TSH Order Info: 2857-1 - PSA Order Info: 2498-4 - FE Performed By: #### L 506.1001, L509.1000, L503.0106 #### [facility] [address] [place], [address] Creatinine [Mass/Vol] 1.64 mg/dL High 0.70-1.20 [facility] Comment on above: Order Comment: Order Date: 10/12/23 Order Info: 0786-1 - CMP Order Info: [id number] - LIPID Order Info: 3015-04 - TSH Order Info: 2856-02 - PSA Order Info: 24909-10 - FE Performed By: #### L 506.1001, L509.1000, L503.0106 #### [facility] [address] [place], [place], [address] GAP 12 Normal 5-15 [facility] Comment on above: Order Comment: Order Date: 10/12/23 Order Info: 785- - CMP Order Info: [id number] - LIPID Order Info: 3 - TSH Order Info: 2856-02 - PSA Order Info: 24909-10 - FE Performed By: #### L 506.1001, L509.1000, L503.0106 #### [facility] [address] [place], [place], [address] GFR/1.73 sq M.predicted among non-blacks MDRD (S/P/Bld) [Vol rate/Area] 44 mL/min/{1.73_m2} Low >60 [facility] Comment on above: Order Comment: Order Date: 10/12/23 Order Info: 785-02 - CMP Order Info: - LIPID Order Info: 3015-04 - TSH Order Info: 2856-02 - PSA Order Info: 24909-10 - FE Result Comment: mL/m in/1.73m2 CKD-EPI Creatinine Equation (2020) Performed By: #### L 506.1001, L509.1000, L503.0106 #### [facility] [address] [place], [place], [address] Globulin (S) [Mass/Vol] 2.8 g/dL Normal 2.2-4.2 [facility] Comment on above: Order Comment: Order Date: 10/12/23 Order Info: 785-1 - CMP Order Info: [id number] - LIPID Order Info: 3 - TSH Order Info: 28508-07 - PSA Order Info: 24909-10 - FE Performed By: #### L 506.1001, L509.1000, L503.0106 #### [facility] [address] [place], [address] Glucose [Mass/Vol] 163 mg/dL High 70-99 [facility] Comment on above: Order Comment: Order Date: 10/12/23 Order Info: 0786-1 - CMP Order Info: [id number] - LIPID Order Info: 301-3 - TSH Order Info: 2857-1 - PSA Order Info: 2498-4 - FE Performed By: #### L 506.1001, L509.1000, L503.0106 #### [facility] [address] [place], [address] Potassium [Moles/Vol] 4.8 mmol/L Normal 3.3-5.1 [facility] Comment on above: Order Comment: Order Date: 10/12/23 Order Info: 785-1 - CMP Order Info: [id number] - LIPID Order Info: 3 - TSH Order Info: 2851 - PSA Order Info: 2498-4 - FE Performed By: #### L 506.1001, L509.1000, L503.0106 #### [facility] [address] [place], [address] Sodium [Moles/Vol] 138 mmol/L Normal 133-145 [facility] Comment on above: Order Comment: Order Date: 10/12/23 Order Info: 0786-1 - CMP Order Info: 70932-0 - LIPID Order Info: 3016-3 - TSH Order Info: 2857-1 - PSA Order Info: 2498-4 - FE Performed By: #### L 506.1001, L509.1000, L503.0106 #### [facility] [address] [place], [address] T PROT 6.7 g/dL Normal 5.9-8.4 [facility] Comment on above: Order Comment: Order Date: 10/12/23 Order Info: 0786-1 - CMP Order Info: [id number] - LIPID Order Info: 3016-3 - TSH Order Info: 2857-1 - PSA Order Info: 24909-10 - FE Performed By: #### L 506.1001, L509.1000, L503.0106 #### [facility] [address] [place], [place], [address] Urea nitrogen [Mass/Vol] 28 mg/dL High 4-19 [facility] Comment on above: Order Comment: Order Date: 10/12/23 Order Info: 0786-1 - CMP Order Info: 13959-2 - LIPID Order Info: 3016-3 - TSH Order Info: 2857-1 - PSA Order Info: 24909-10 - FE Performed By: #### L 506.1001, L509.1000, L503.0106 #### [facility] [address] [place], [place], [address] Erythrocyte distribution wid th (RBC) [Ratio]Ordered By: Padmini Carrasco on 05-10-2024 Erythrocyte distribution width (RBC) [Entitic vol] 45.1 fL High 35.1-43.9 [facility] Erythrocyte distribution wid th ratioOrdered By: Padmini Carrasco on 05-10-2024 Erythrocyte distribution width (RBC) [Ratio] 13.2 % 11.6-14.6 [facility] Erythrocyte distribution wid th standard deviationOrdered By: Padmini Carrasco on 05-10-2024 Erythrocyte distribution width (RBC) [Ratio] 45.1 fl High 35.1-43.9 [facility] GFR/1.73 sq M.predicted kasie g non-blacks MDRD (S/P/Bld) [Vol rate/Area]Ordered By: Padmini Carrasco on 05-10-2024 Estimated GFR (MDRD) Non-Af Amer 44 Low >60 [facility] Comment on above: mL/min/1.73m2 CKD-EP I Creatinine Equation (2020) Glomerular filtration rate ( GFR) estimation/1.73 sq m using serum, plasma, or whole bOrdered By: Padmini Carrasco on 05-10-2024 GFR/1.73 sq M.predicted among non-blacks MDRD (S/P/Bld) [Vol rate/Area] 44 mL/min/{1.73_m2} Low >60 [facility] Comment on above: mL/min/1.73m2 CKD-EP I Creatinine Equation (2020) Hematocrit Auto (Bld) [Volum e fraction]Ordered By: Padmini Carrasco on 05-10-2024 Hematocrit (Bld) [Volume fraction] 42.5 % 40-54 [facility] Hemoglobin measurementOrdere d By: Padmini Carrasco on 05-10-2024 Hemoglobin (Bld) [Mass/Vol] 13.6 g/dL 13.0-16.5 [facility] Ironon 05-10-2024 Iron [Mass/Vol] 57 ug/dL Low 65-175 [facility] Comment on above: Order Comment: Order Date: 10/12/23Order Info: 0786-1 - CMPOrder Info: [id number] - LIPIDOrder Info: 3016-3 - TSHOrder Info: 2857-1 - PSAOrder Info: 2498-4 - FE Performed By: #### L 506.1001, L509.1000, L503.0106 #### [facility] [place] [address], [address] Iron (Unsp spec) [Mass/Mass] Ordered By: Padmini Carrasco on 05-10-2024 Iron [Mass/Vol] 57 ug/dL Low 65-175 [facility] Iron measurement (mass/mass) Ordered By: Padmini Carrasco on 05-10-2024 Iron (Unsp spec) [Mass/Mass] 57 ug/dL Low 65-175 [facility] LDL calc ser/plasOrdered By: Padmini Carrasco on 05-10-2024 Cholesterol in LDL [Mass/Vol] 63 mg/dL [facility] Comment on above: Kleytdizrg=538-545 m g/dL & Higher Ucdw=926 mg/dL or greater LDL Cholesterol, Calculated 63 mg/dL [facility] Comment on above: Wsmfkpynye=707-975 m g/dL & Higher Qviw=492 mg/dL or greater Laboratory - Chemistry and C hemistry - challengeOrdered By: Padmini Carrasco on 05-10-2024 AST [Catalytic activity/Vol] 16 U/L <38 [facility] Lipid Profileon 05-10-2024 CHOL:HDL 2.86 Normal [facility] Comment on above: Order Comment: Order Date: 10/12/23 Order Info: 0786- - CMP Order Info: - LIPID Order Info: [id number] - TSH Order Info: 2856-02 - PSA Order Info: 2497-05 Performed By: #### L 506.1001, L509.1000, L503.0106 #### [facility] [address] [place], [place], [address] Cholesterol [Mass/Vol] 144 mg/dL Normal <=200 [facility] Comment on above: Order Comment: Order Date: 10/12/23 Order Info: 785-02 - CMP Order Info: - LIPID Order Info: 3015-04 - TSH Order Info: 2856-02 - PSA Order Info: 2497-05 Result Comment: Chol esterol level, Desirable <200 mg/dL Borderline high cholesterol 200-239 mg/dL High cholesterol >=240 mg/dL Recommendations of the NCEP Adult Treatment Panel for the following risk-cutoff thresholds for the [place] population. Performed By: #### L 506.1001, L509.1000, L503.0106 #### [facility] [address] [place], [place], [address] Cholesterol in HDL [Mass/Vol] 50 mg/dL Normal [facility] Comment on above: Order Comment: Order Date: 10/12/23 Order Info: 0786 - CMP Order Info: - LIPID Order Info: 3 - TSH Order Info: 2856-02 - PSA Order Info: 2497-05 Result Comment: Kaci onal Cholesterol Education Program (NCEP) guidelines: <40 mg/dL: Low HDL-cholesterol (major risk factor for CHD) >= 60 mg/dL: High HDL-cholesterol (negative risk factor for CHD) HDL-cholesterol is affected by a number of factors, e.g. smoking, exercise, hormones, sex and age. Performed By: #### L 506.1001, L509.1000, L503.0106 #### [facility] [address] [place], [address] Cholesterol in LDL [Mass/Vol] 63 mg/dL Normal [facility] Comment on above: Order Comment: Order Date: 10/12/23 Order Info: 785-1 - CMP Order Info: [id number] - LIPID Order Info: 3 - TSH Order Info: 2856-02 - PSA Order Info: 2497-05 Result Comment: Bord hvncyb=872-954 mg/dL Higher Shno=092 mg/dL or greater Performed By: #### L 506.1001, L509.1000, L503.0106 #### [facility] [address] [place], [address] Cholesterol in VLDL [Mass/Vol] 31 mg/dL Normal 5-40 [facility] Comment on above: Order Comment: Order Date: 10/12/23 Order Info: 785- - CMP Order Info: - LIPID Order Info: 3015-04 - TSH Order Info: 2856-02 - PSA Order Info: 2497-05 Performed By: #### L 506.1001, L509.1000, L503.0106 #### [facility] [address] [place], [address] Triglyceride [Mass/Vol] 155 mg/dL Normal [facility] Comment on above: Order Comment: Order Date: 10/12/23 Order Info: 785-02 - CMP Order Info: - LIPID Order Info: 3 - TSH Order Info: 2856-02 - PSA Order Info: 2497-05 - Result Comment: The drugs N-Acetylcysteine and Metamizole may falsely depress this assay. Normal range: <150 mg/dL Borderline High: 150-199 mg/dL High: 200-499 mg/dL Very High: >500 mg/dL Performed By: #### L 506.1001, L509.1000, L503.0106 #### [facility] [address] [place], [address] MCV (mean corpuscular volume ) determinationOrdered By: Padmini Carrasco on 05-10-2024 MCV (RBC) [Entitic vol] 93.8 fL 80-94 [facility] Mean corpuscular hemoglobin (MCH) determinationOrdered By: Padmini Carrasco on 05-10-2024 MCH (RBC) [Entitic mass] 30.0 pg 27.0-32.0 [facility] Mean corpuscular hemoglobin concentration (MCHC) determinationOrdered By: [facility] Carrasco on 05-10-2024 MCHC (RBC) [Mass/Vol] 32.0 g/dL 32-36 [facility] Mean platelet volume determi nationOrdered By: Padmini Carrasco on 05-10-2024 Platelet mean volume (Bld) [Entitic vol] 9.2 fL 6.2-12.0 [facility] PSA, total screeningOrdered By: [place] [facility] on 05-10-2024 Prostate Specific Antigen Screen 0.49 ng/mL 0.02-4.00 [facility] Comment on above: This test was perfor med using the [employer] tPSA method. Measured values of a patient sample can vary depending on the testing procedure used. PSA values determined on patient samples by different testing procedures cannot be used interchangeably. If there is a change in PSA assays while monitoring therapy, sequential testing should be performed to confirm baseline values. PSA,Total - Annual Screenon 05-10-2024 PSA,TOT SCREEN 0.49 ng/mL Normal 0.02-4.00 [facility] Comment on above: Order Comment: Order Date: 10/12/23 Order Info: 0786-1 - CMP Order Info: 23293-6 - LIPID Order Info: 3016-3 - TSH Order Info: 2857-1 - PSA Order Info: 2498-4 - FE Result Comment: This test was performed using the [employer] tPSA method. Measured values of a patient??sample can vary depending on the testing procedure used. PSA values determined on patient samples by different testing procedures cannot be used interchangeably. If there is a change in PSA assays while monitoring therapy, sequential testing should be performed to confirm baseline values. Performed By: #### L 506.1001, L509.1000, L503.0106 #### [facility] [address] [place], [address] PTH intactOrdered By: Horacio Carrasco on 05-10-2024 Parathyroid Hormone (Intact) 74 pg/mL High [facility] PTHINon 05-10-2024 PTH 74 pg/mL High [facility] Comment on above: Performed By: #### L 506.1001, L509.1000, L503.0106 #### [facility] [address] [place], [address] Platelet countOrdered By: Rambo Carrasco on 05-10-2024 Platelets (Bld) [#/Vol] 168 10*3/uL 150-450 [facility] Potassium (Unsp spec) [Mass/ Vol]Ordered By: Padmini Carrasco on 05-10-2024 Potassium [Moles/Vol] 4.8 mmol/L 3.3-5.1 [facility] Potassium measurement (mass/ volume)Ordered By: Padmini Carrasco on 05-10-2024 Potassium (Unsp spec) [Mass/Vol] 4.8 mmol/L 3.3-5.1 [facility] RBC Auto (Bld) [#/Vol]Ordere d By: Padmini Carrasco on 05-10-2024 RBC (Bld) [#/Vol] 4.53 10*6/uL Low 4.6-6.2 [facility] Screening total cholesterol/ high density lipoprotein (HDL) cholesterol ratioOrdered By: Padmini Carrasco on 05-10-2024 Cholesterol.total/Prisca sterol in HDL [Mass ratio] 2.86 {ratio} [facility] Serum creatinine measurement (mass/volume)Ordered By: Padmini Carrasco on 05-10-2024 Creatinine [Mass/Vol] 1.64 mg/dL High 0.70-1.20 [facility] Serum globulin measurementOr dered By: Pdamini Carrasco on 05-10-2024 Globulin (S) [Mass/Vol] 2.8 g/dL 2.2-4.2 [facility] Serum glucose measurement (m ass/volume)Ordered By: Padmini Carrasco on 05-10-2024 Glucose [Mass/Vol] 163 mg/dL High 70-99 [facility] Serum or plasma alanine perales otransferase (ALT) measurementOrdered By: Padmini Carrasco on 05-10-2024 ALT [Catalytic activity/Vol] 6 U/L <47 [facility] Serum or plasma albumin jamel urement (mass/volume)Ordered By: Padmini Carrasco on 05-10-2024 Albumin [Mass/Vol] 3.9 g/dL 3.4-4.8 [facility] Serum or plasma albumin/glob ulin mass ratioOrdered By: Padmini Carracso on 05-10-2024 Albumin/Globulin [Mass ratio] 1.4 {ratio} 0.9-2.4 [facility] Serum or plasma alkaline masha sphatase measurementOrdered By: Padmini Carrasco on 05-10-2024 ALP [Catalytic activity/Vol] 73 U/L 40-129 [facility] Serum or plasma calcium jamel urement (mass/volume)Ordered By: Padmini Carrasco on 05-10-2024 Calcium [Mass/Vol] 9.0 mg/dL 7.6-11.0 [facility] Serum or plasma cholesterol in HDL measurement (mass/volume)Ordered By: Padmini Carrasco on 05-10-2024 Cholesterol in HDL [Mass/Vol] 50 mg/dL >40 [facility] Comment on above: National Cholesterol Education Program (NCEP) guidelines:<40 mg/dL: Low HDL-cholesterol (major risk factor for CHD)>= 60 mg/dL: High HDL-cholesterol (negative risk factor for CHD)HDL-cholesterol is affected by a number of factors, e.g. smoking, exercise, hormones, sex and age. Serum or plasma cholesterol measurement (mass/volume)Ordered By: Padmini Carrasco on 05-10-2024 Cholesterol [Mass/Vol] 144 mg/dL <201 [facility] Comment on above: Cholesterol level, D esirable <200 mg/dLBorderline high cholesterol 200-239 mg/dLHigh cholesterol >=240 mg/dLRecommendations of the NCEP Adult Treatment Panel for the following risk-cutoff thresholds for the [place] population. Serum or plasma urea nitroge n measurement (mass/volume)Ordered By: Padmini Carrasco on 05-10-2024 Urea nitrogen [Mass/Vol] 28 mg/dL High 4-19 [facility] Sodium levelOrdered By: Jaz Carrasco on 05-10-2024 Sodium [Moles/Vol] 138 mmol/L 133-145 [facility] TSH DL <= 0.005 mIU/L QnOrde red By: Padmini Carrasco on 05-10-2024 Thyroid Stimulating Hormone (TSH) 3.680 uIU/mL 0.300-4.200 [facility] TSH Qn 3.680 uIU/mL 0.300-4.200 [facility] Thyroid Stim Hormone (TSH)on 05-10-2024 TSH 3.680 uIU/mL Normal 0.300-4.200 [facility] Comment on above: Order Comment: Order Date: 10/12/23 Order Info: 0786-1 - CMP Order Info: [id number] - LIPID Order Info: 3016-3 - TSH Order Info: 2857-1 - PSA Order Info: 2498-4 - FE Performed By: #### L 506.1001, L509.1000, L503.0106 #### [facility] [address] [place], [place], [id number] Total proteinOrdered By: Agueda Carrasco on 05-10-2024 Protein [Mass/Vol] 6.7 g/dL 5.9-8.4 [facility] Triglycerides measurementOrd ered By: Padmini Carrasco on 05-10-2024 Triglyceride [Mass/Vol] 155 mg/dL <199 [facility] Comment on above: The drugs N-Acetylcy steine and Metamizole may falsely depress this assay. Normal range: <150 mg/dLBorderline High: 150-199 mg/dLHigh: 200-499 mg/dLVery High: >500 mg/dL Vitamin B12on 05-10-2024 Cobalamin (Vitamin B12) [Mass/Vol] 355 pg/mL Normal 180-914 [facility] Comment on above: Order Comment: Order Date: 10/12/23 Order Info: 0786-1 - CMP Order Info: [id number] - LIPID Order Info: 3016 - TSH Order Info: 2856-02 - PSA Order Info: 2497-05 Performed By: #### L 506.1001, L509.1000, L503.0106 #### [facility] [address] [place], [place], [id number] Vitamin B12 ser/plasOrdered By: Padmini Carrasco on 05-10-2024 Cobalamin (Vitamin B12) [Mass/Vol] 355 pg/mL 180-914 [facility] Vitamin D, 25-hydroxyOrdered By: Padmini Carrasco on 05-10-2024 Vitamin D 25-Hydroxy 23.1 ng/mL Low 30-100 [facility] Comment on above: Vitamin D StatusDefi ciency: <20 ng/mL (50nmol/L)Insufficiency: 20-30 ng/mL (50-75 nmol/L)Sufficiency: 30-100 ng/mL (75-250 nmol/L)Toxicity: >100 ng/mL (>250 nmol/L) Vitamin D,25 Hydroxyon 05-10 Vitamin D 25-OH 23.1 ng/mL Low 30-100 [facility] Comment on above: Order Comment: Order Date: 10/12/23 Order Info: 0786-1 - CMP Order Info: [id number] - LIPID Order Info: 3016 - TSH Order Info: 2856-02 - PSA Order Info: 2497-05 - Result Comment: Tory min D Status Deficiency: <20 ng/mL (50nmol/L) Insufficiency: 20-30 ng/mL (50-75 nmol/L) Sufficiency: 30-100 ng/mL (75-250 nmol/L) Toxicity: >100 ng/mL (>250 nmol/L) Performed By: #### L 506.1001, L509.1000, L503.0106 #### [facility] [address] [place], [address] White blood cell (WBC) count Ordered By: Padmini Carrasco on 05-10-2024 WBC (Bld) [#/Vol] 6.9 10*3/uL 4.4-11.0 [facility] Pulmonary Visit Reporton Pulmonary Visit Report [facility] [address] [place] [address] OFFICE VISIT Date of Service: 03/23/24 MR#: [id number] Acct: [id number] Name: ABELARDO IVORY Rep #: [id number] 3 : 1950 Provider: TOÑO Tee Age/Sex: 74/M Location: [facility] Status: Signed Assessment and Plan Assessment and Plan (1) COPD (chronic obstructive pulmonary disease): Status: Chronic Qualifiers: COPD type: emphysema Emphysema type: centrilobular Qualified Code(s): J43.2 - Centrilobular emphysema Plan: Stable, he does not appear to be an exacerbation of COPD today. No need for prednisone or antibiotic. Continue current maintenance medication, symptomatically controlled on triple therapy with use of Trelegy. No additional testing at this time. Contact the office for any new or worsening symptoms. An acute visit and typically be arranged within 1-2 days. Follow-up in March 2025. (2) Smoking greater than 40 pack years: Status: Chronic Plan: Continue to encourage complete smoking cessation. The patient remains precontemplative at this time. He is appropriate for repeat LDCT which is due in February 2025, ordered accordingly. Follow- up in March 2025 to discuss test results. Orders: Orders Low Dose CT Lung Screening 02/07/25 F17.200 - Nicotine dependence, unspecified, uncomplicated, F17.210 - Nicotine dependence, cigarettes, uncomplicated Medications: Refilled wnczyzlrvhn-lmxhhdvsh-j ilanter 200-62.5-25 mcg (Trelegy Ellipta) 1 inh inhalation DAILY 60 ea 11RF HPI HPI Comments Details: This patient presents to the office today for follow-up of his COPD. He is ambulatory and currently on room air. He has not recently been seen in the ED or urgent care for any respiratory illness. He has not required any antibiotics or prednisone for any breathing problems. He is compliant with use of Trelegy 1 puff daily. He does report rinsing his mouth out after each use. He denies any medication side effect such as sore throat or thrush. He has not recently used albuterol. He has not recently used the Flonase. He continues to smoke cigarettes. He is currently smoking between 1/2 pack/day. He reports shortness of breath on exertion. He has an occasional cough productive of clear sputum. He has not had hemoptysis. He denies any wheezing, chest tightness, chest pain or palpitations. He has not had any fever, chills or body aches. Test results personally viewed the patient: Low-dose CT lung screening completed on February 21, 2024. Noted is mild emphysema. Stable 4 mm noncalcified nodule in the posterior left upper lobe. Recommend repeating LDCT in 12 months. Intake Vital Signs 05/12/23 07:52 11/09/23 09:40 03/23/24 08:03 Height 5 ft 6 in 5 ft 6 in 5 ft 6 in Weight: 160 lb BMI 25.8 BP 145/87 H Blood Pressure Location Lt brachial Position Sitting Respiration 18 Pulse 57 L Pulse Source Monitor Temp 97.2 F L Temperature Source Temporal Artery Pulse Oximetry (%) 98 Oxygen Delivery Method room air Intake Visit Reasons: 10 m fu Chief Complaint: s/p hernia 11/08 Inspector Government Property Required: No Accompanied by: Self Allergies No Known Allergies Allergy (Verified 03/23/24 12:45) Medications ???Medication ???Instructions ???Recorded ???Confirmed ???Type aspirin 81 mg tablet,delayed 81 mg PO DAILY heart health 03/23/24 History release rosuvastatin 5 mg tablet (Crestor) 5 mg PO DAILY cholesterol 03/23/24 History amlodipine 5 mg tablet 5 mg PO DAILY #30 tabs 02/28/23 Rx calcium carbonate 500 mg PO DAILY 10/27/23 03/23/24 History cholecalciferol (vitamin D3) 25 25 mcg PO DAILY 10/27/23 03/23/24 History mcg (1,000 unit) capsule metoprolol tartrate 25 mg tablet 12.5 mg (1/2 x 25 mg) PO BID #90 0 03/22/24 03/23/24 Rx tabs fluticasone fur. 200 mcg-umeclid 1 inh inhalation DAILY #60 ea 03/1003/23/24 Rx 62.5 mcg-vilant 25 mcg inhalat.powder (Trelegy Ellipta) Have you fallen in the past year?: No [facility] Medical History Wears dentures Wears glasses Bruising Easy bruising High cholesterol Smoker Shortness of breath on exertion History of echocardiogram Cardiology follow-up encounter Stage 3b chronic kidney disease (CKD) Thrombocytopenia Chronic kidney insufficiency Pleural effusion Secondary pulmonary arterial hypertension Atherosclerotic heart disease of lummi coronary artery without angina pectoris Intention tremor Carotid stenosis, bilateral Hyperlipidemia Nonrheumatic aortic (valve) stenosis Essential hypertension Tobacco dependence Bilateral inguinal hernia Left carotid bruit Abdominal aortic aneurysm (AAA) Anemia Subcutane (more content not included)... Normal [facility] Low Dose CT Lung Screeningon 02-21-[address] Lung Screening [facility] Imaging Services [address] [place] [id number] Lung Screening MR#: [id number] Acct: [id number] Name: ABELARDO IVORY Rep #: [id number] : 1950 M 73 From: Lebron mak MD PCP: Dr. Padmini Carrasco MD Status: [facility] Study: Low Dose CT Lung Screening Date of Exam: 02/20 Exam# [id number] Ordering Dr: Carmina Tee NP INSTALLATION TECH-C [id number] STUDY: LOW DOSE CT LUNG CANCER SCREENING REASON FOR EXAM: Male, 73 years old. Patient smoked 1 pack per day for 50 years. RADIATION DOSAGE (If Supplied By Facility): CTDIvol = ( 3.02 ) mGy, DLP = ( 115.13 ) mGycm TECHNIQUE: No contrast was administered. Low dose technique was utilized (average mAS-38 and kVp 120). 1.25 mm axial source images with a slice interval of 1.25-mm were reconstructed in lung windows. 2.5 mm axial source images with a slice interval of 2.5-mm were reconstructed in lung windows. 5.0 mm axial source images with a slice interval of 5.0-mm were reconstructed in soft tissue windows. COMPARISON: Comparison is made with prior study dated February 10, 2023. NODULES: Stable 4 mm noncalcified nodule in the posterior aspect of the left upper lobe as seen on image #79. Emphysema: Hyperinflation. Mild emphysematous change. Endobronchial lesion: None Aorta: Atherosclerotic plaque formation of the aortic arch. CORONARY ARTERIES: Coronary artery calcification is seen. Heart: Unremarkable Pulmonary artery: Unremarkable Mediastinal nodes: Benign-appearing mediastinal lymph nodes. Other chest and abdominal findings: CT/Low Dose CT Lung Screening IMPRESSION: Lung-RADS category 2 - Continue annual screening with LDCT in 12 months. IMPORTANT NOTES FOR USE: ACR Lung-RADS Version 1.1 Assessment Categories Release Date: 2018 Category: Coded 0-4 bases on nodule(s) with highest degree of suspicion. Negative screen is defined as categories 1 and 2; a positive screen is defined as categories 3 and 4. Category 3 and 4A nodules that are unchanged on interval CT should be coded as category 2, and individuals returned to screening in 12 months. Category 4X: Category 3 or 4 nodules with additional imaging findings that increase the suspicion of lung cancer, such as spiculation, GGN that doubles in size in 1 year, enlarged lymph notes, etc. Category Modifiers: S (significant finding unrelated to lung cancer) Electronically Signed: Lebron Briseno MD at 14:51 EST Reading Location ID and State: [address] [place] [address] , Service support , CC: TOÑO Tee; Dr. Padmini Carrasco MD Banquet Supervisor: Signed Normal [facility] Surgery Visit Reporton 02-01 Surgery Visit Report [facility] [address] [place], [place] [address] OFFICE VISIT Date of Service: 02/02/24 MR#: [id number] Acct: [id number] Name: ABELARDO IVORY Rep #: [id number] : 1950 Provider: Dr. Marquise tsai MD Age/Sex: 73/M Location: [facility] Status: Signed Intake Vital Signs 01/18/24 10:01 Height 5 ft 6 in Intake Visit Reasons: INGUINAL HERNIA DOS 01/17 Chief Complaint: s/p hernia 11/08 Inspector Government Property Required: No Is patient in pain?: No Allergies No Known Allergies Allergy (Verified 02/02/24 08:31) Medications ???Medication ???Instructions ???Recorded ???Confirmed ???Type aspirin 81 mg tablet,delayed 81 mg PO DAILY heart health 03/02/22 02/02/24 History release rosuvastatin 5 mg tablet (Crestor) 5 mg PO DAILY cholesterol 03/02/22 02/02/24 History metoprolol tartrate 25 mg tablet 12.5 mg (1/2 x 25 mg) PO BID #90 01/14/23 02/02/24 Rx tabs fluticasone fur. 200 mcg-umeclid 1 inh inhalation DAILY #60 ea 01/27/23 02/02/24 Rx 62.5 mcg-vilant 25 mcg inhalat.powder (Trelegy Ellipta) amlodipine 5 mg tablet 5 mg PO DAILY #30 tabs 02/28/23 02/02/24 Rx calcium carbonate 500 mg PO DAILY 10/27/23 02/02/24 History cholecalciferol (vitamin D3) 25 25 mcg PO DAILY 10/27/23 02/02/24 History mcg (1,000 unit) capsule Have you fallen in the past year?: No Subjective Details: Patient is doing well after inguinal hernia. Objective Details: Incision healing well. Coding Level of Care Code Global Post Op Diagnoses S/P inguinal hernia repair Z98.890; Z87.19 [facility] Medical History Wears dentures Wears glasses Bruising Easy bruising High cholesterol Smoker Shortness of breath on exertion History of echocardiogram Cardiology follow-up encounter Stage 3b chronic kidney disease (CKD) Thrombocytopenia Chronic kidney insufficiency Pleural effusion Secondary pulmonary arterial hypertension Atherosclerotic heart disease of lummi coronary artery without angina pectoris Intention tremor Carotid stenosis, bilateral Hyperlipidemia Nonrheumatic aortic (valve) stenosis Essential hypertension Tobacco dependence Bilateral inguinal hernia Left carotid bruit Abdominal aortic aneurysm (AAA) Anemia Subcutaneous mass of back PUD (peptic ulcer disease) Cough Arthritis Surgical History (Updated 02/02/24 @ 08:32 by Fanny Torre) Hx of inguinal hernia repair S/P inguinal hernia repair History of cardiac catheterization S/P AAA repair 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) History of left heart catheterization (11/27/18) History of aortic valve replacement (02/12/19) Family History Sister Asthma Mother Arthritis Diabetes Brother Cancer Unsure what kind- just a lump on his neck Social History Smoking Status: Current every day smoker (Patient did not smoke today.) tobacco type: cigarettes quit status: has quit before alcohol intake: never substance use type: does not use caffeine: Yes Type: coffee Number of servings: 3 what type of physical activity do you participate in: other frequency: 3-4 times per week seatbelt use: always Assessment and Plan (No Qualifiers) Assessment and Plan (1) S/P inguinal hernia repair: Status: Acute Comment: [facility] Plan: Patient is doing well after inguinal hernia repair. Incision is healing well. Activity as tolerated 6 weeks postop Marquise Barillas MD Pager: [facility] [address] [place] [phone] Office: 02/02/24 0841 Date Marquise Barillas MD [facility] Signature: Date (if applicable) CC: Normal [facility] Discharge Instructionon 01-07 Discharge Instruction [facility] Medical Records Department [address] [place] [id number] Instructions for Home/Discharge Instructions 01/18/24 1159 MR#: [id number] Acct: [id number] Name: ABELARDO IVORY Rep #: [id number] : 1950 73 From: Marquise Barillas MD PCP: Dr. Padmini Carrasco MD [place] [facility] [place] Instructions Procedure Hernia Diet Discharge Diet: Light diet - advance as tolerated Activity Discharge Activity: May Not Drive (for 2-3 days or while taking narcotic pain meds.) and May Shower (with the bandage in place 1-2 days after surgery.) Lifting Restrictions: 20 pounds for 6 weeks. Additional Activity Instructions:: Climbing stairs is fine, walking is encouraged. Sitting in bed may be uncomfortable. Sitting up using your lateral muscles (sitting up sideways) is usually more comfortable. Do not drive, work heavy equipment of sign legal documents for 24 hours. If your hernia repair was an inguinal repair, you may have scrotal swelling, an ice pack and/or athletic support can provide more comfort. Pain medications may cause nausea, you should typically eat light foods as you take your pain medications. Pain medications may also cause constipation. If you have difficulty with this, discuss with your doctor. Alternate ibuprofen and Tylenol for pain control, oxycodone for breakthrough pain Resume aspirin tomorrow Dressing / Incision Call your doctor if your incision/area has: Continuous Slow Oozing, Sudden Increased Bleeding, Increased Pain/ Swelling, Increased Redness and Foul Smelling Discharge Call your doctor if you observe: Fever of 101 or Higher Suture Line Care: Avoid Pulling/Pushing and Avoid Pinching/Bending Cleanse incision/area with: Soap Water Follow Up Care Please Follow Up With: Marquise Barillas MD When: Please call to schedule 2 week follow up appointment. [phone] Test Results: Test results from this visit will be discussed in further detail at your follow-up appointment, if applicable. Discharge Plan Admission Attending Provider: Marquise Barillas Primary Care Provider: Padmini Carrasco Instructions Print Language: Guamanian Discharge Orders/Prescriptions Prescriptions: New oxycodone 5 mg Tablet 5 - 10 mg PO Q4H PRN PRN (Reason: Pain Score 4-10) 5 Days Qty: 20 0RF No Action amlodipine 5 mg tablet 5 mg PO DAILY Qty: 30 11RF Trelegy Ellipta 200-62.5-25 mcg blister with device 1 inh inhalation DAILY Qty: 60 6RF aspirin 81 mg tablet,delayed release (DR/EC) 81 mg PO DAILY Patient Comments: STOP 5 DAYS PRIOR TO PROCEDURE rosuvastatin [Crestor] 5 mg tablet 5 mg PO DAILY calcium carbonate 500 mg calcium (1,250 mg) tablet 500 mg PO DAILY cholecalciferol (vitamin D3) 25 mcg (1,000 unit) capsule 25 mcg PO DAILY metoprolol tartrate 25 mg tablet 12.5 mg PO BID Qty: 90 3RF Referrals / Follow Up: Padmini Carrasco MD [Primary Care Provider] - Disposition Disposition (needs filled in before D/C Order can be placed): Home, Self Care 01/18/24 1201 Marquise Barillas MD CC: Dr. Padmini Carrasco MD Signed [facility] MR/POSTOP.[facility] 01-18-2024 MR/POSTOP.[facility] Medical Records Department [address] [place] [address] Anesthesia Postop Eval I 01/18/24 1143 MR#: [id number] Acct: [id number] Name: ABELARDO IVORY Rep #: [id number] : 1950 73 From: Arnold Clemons MD PCP: Dr. Padmini Carrasco MD [place] [facility] [place] Race: C Location: [place] [address] Anesthesia: Postop Eval I Current Vital Signs Temperature: 97.7 F Pulse Rate: 57 Blood Pressure: 152/75 Respiratory Rate: 15 Pulse Ox: 100 Oxygen Delivery Method: Room Air Assessment Airway patent: Yes Spontaneous unlabored respirations: Yes Mental status: Asleep nausea: No Vomiting: No Anesthesia Complication: No Fluid Hydration Crystalloid volume administer (ml): 500 Total IV fluid infused: 500 Progress Note Anesthesia document: Postop Eval 1 completed: Yes 01/18/24 1158 Date Arnold Clemons MD Cosigner Signature: Date CC: Signed Normal [facility] MR/[id number] 01-18-2024 MR/POSTOPAN2 [facility] Medical Records Department [address] [place] [address] Anesthesia Postop Eval II 01/18/24 1338 MR#: [id number] Acct: [id number] Name: ABELARDO IVORY Rep #: [id number] : 1950 73 From: Jose Cisneros MD PCP: Dr. Padmini Carrasco MD Status:REG [facility] Y Race: C Location: [place] [address] Anesthesia Postop Eval I Sum Postop Eval Completion status Anesthesia document: Postop Eval 1 completed: Yes Anesthesia Postop Eval I Summary Anesthesia Postop Eval I Summary: Anesthesia Postop Eval I: Assessment Summary Airway patent Yes 01/18/24 11:58 Spontaneous unlabored Yes 01/18/24 11:58 respirations Mental status Asleep 01/18/24 11:58 nausea No 01/18/24 11:58 Vomiting No 01/18/24 11:58 Anesthesia Postop Eval I: Fluid Summary Crystalloid volume administer 500 01/18/24 11:58 (ml) Colloids volume administered ( ml) Blood Product volume administered (ml) Total IV fluid infused 500 01/18/24 11:58 Anesthesia Postop Eval I: Summary Notes Anesthesia Complication No 01/18/24 11:58 Anesthesia Complication Comment: Post-operative progress note Anesthesia: Postop Eval II Evaluation Mental status: Awake Pain Level: 1 nausea: No Vomiting: No 01/18/24 1338 Date Jose Cisneros MD Cosigner Signature: Date CC: Signed Normal [facility] Operative Reporton 4 Operative Report [facility] Medical Records Department [address] [place] [address] Operative Report 01/18/24 1156 MR#: [id number] Acct: [id number] Name: ABELARDO IVORY Rep #: [id number] : 1950 73 From: Marquise Barillas MD PCP: Dr. Padmini Carrasco MD Status:[facility] Location: [place] [address] Operative Report (Standard) Operative Information Date of Procedure: 01/18/24 Pre-Operative Diagnosis: Left inguinal hernia Post-Operative Diagnosis: Left inguinal hernia Surgery/Procedure Performed: Left inguinal hernia repair with mesh propagation worker: Yes Manager Of Case: Thuy Vaz Tasks completed by first coat operator: Opening, Closing and Retracting Type of Anesthesia: General/Regional RN Documented Start/Stop Times: Operation Date: 01/18/24 11:30 Case Time Into Pre-Op 01/18/24 09:49 Out of Pre-Op 01/18/24 10:25 Anesthesia Start 01/18/24 10:28 Into Room 01/18/24 10:28 Procedure Start 01/18/24 10:46 Procedure End 01/18/24 11:32 Anesthesia End 01/18/24 11:40 Out of Room 01/18/24 11:40 Into Recovery 01/18/24 11:44 Procedure Start Time: 10:46 Procedure Stop Time: 11:32 Select all DRAINS/GRAFTS/IMPLANTS that apply: Implanted device Implanted device details: Bard keyhole mesh Estimated Blood Loss: 5 Specimen collected: Yes Description of specimen(s) removed: Hernia sac Description of surgery: Patient was brought to the operating room and general anesthesia was induced. The left groin was prepped and draped in usual sterile fashion. An incision was marked and then injected with local anesthetic. Incision was made with a scalpel and deepened to the external aponeurosis which was obliterated due to the hernia and scar tissue. The hernia sac was isolated from the cord and the cord was lifted with a Vernon drain. The base of the inguinal canal was inspected and there was a mild direct hernia as well as an indirect hernia. The indirect hernia sac was dissected free from the cord and then opened with scissors. All the contents were reduced and then it was suture- ligated using 0 silk suture. The hernia sac was sent for specimen. The stump was reduced. The keyhole mesh was then sutured to the pubic tubercle using a 2-0 PDS suture. It was then tacked to the shelving portion of the inguinal ligament using 2-0 PDS sutures. The medial side was then tacked to the conjoined tendon using interrupted 2-0 PDS sutures. The tails were wrapped around the proximal cord and sutured to themselves allowing for the pinky finger to insert next to the cord. Next the area was irrigated and suctioned dry. The tails were tucked under the external aponeurosis and the Duran's fascia was closed over the hernia. The incision was closed with interrupted 3-0 Vicryl sutures and a running 4-0 Monocryl suture. Dermabond glue was applied. Scrotum was checked at the end of the case and contain both testicles. Surgical Findings: Indirect and direct hernia of the left groin Complications Complications: No Admit VTE Documentation VTE Mechan Device Prophylaxis: [facility] 01/18/24 0075 Cosigner Signature (if applicable): CC: Dr. Marquise Barillas MD; Dr. Padmini Carrasco MD Signed Normal [facility] Surgery Specimen Level IIon 01-18-2024 Surgery Specimen Level II Patient Age/Sex Location Account Attending Physician ABELARDO IVORY 73/M [facility] [place] [id number]. Marquise Barillas MD Specimen: [id number] Received: 01/18/24 Status: EZEQUIEL Mack Num: [id number] Spec Type: Hernia Subm Dr: Dr. Marquise Barillas MD HEADER OPERATION: Hernia, open inguinal with mesh PRE-OP DIAGNOSIS: Left inguinal hernia TISSUE SUBMITTED: Left hernia sac and contents MICROSCOPIC DIAGNOSIS Left hernia sac and contents, herniorrhaphy: Benign fibrofatty tissue consistent with hernia sac and contents. AM. 01/19/2024 MICROSCOPIC DESCRIPTION Slides are reviewed. GROSS DESCRIPTION Received in fixative is one container labeled with the patient's name and designated Left hernia sac and contents. The specimen consists of a piece of white-pink soft tissue measuring 9.0 x 3.5 x 1.0cm. No mass lesion is identified. Snowblower Mechanic sections are submitted in one cassette. SJ. 01/18/2024 TC:5 CPT:09968 Patient Age/Sex Location Account Attending Physician ABELARDO IVORY 73/M [facility] [place] [id number] Dr. Marquise Barillas MD Signed (signature on file) Dr. Alex Rice DO 01/19/24 1143 Normal [facility] Comment on above: Performed By: #### P MICHELEII ####[facility] [id number] [place], [place], [address] Surgery Visit Reporton 11-22 Surgery Visit Report [facility] [address] [place] [address] OFFICE VISIT Date of Service: 11/23/23 MR#: [id number] Acct: [id number] Name: ABELARDO IVORY Rep #: [id number] : 1950 Provider: Dr. Marquise tsai MD Age/Sex: 73/M Location: [facility] Status: Signed Intake Vital Signs 11/09/23 09:40 Height 5 ft 6 in Intake Visit Reasons: S/P HERNIA 10-2 Chief Complaint: s/p hernia 10/2 Is patient in pain?: No Allergies No Known Allergies Allergy (Verified 11/23/23 08:32) Medications ???Medication ???Instructions ???Recorded ???Confirmed ???Type aspirin 81 mg tablet,delayed 81 mg PO DAILY heart health 03/02/22 11/23/23 History release rosuvastatin 5 mg tablet (Crestor) 5 mg PO DAILY cholesterol 03/02/22 11/23/23 History metoprolol tartrate 25 mg tablet 12.5 mg (1/2 x 25 mg) PO BID #90 01/14/23 11/23/23 Rx tabs fluticasone fur. 200 mcg-umeclid 1 inh inhalation DAILY #60 ea 01/27/23 11/23/23 Rx 62.5 mcg-vilant 25 mcg inhalat.powder (Trelegy Ellipta) amlodipine 5 mg tablet 5 mg PO DAILY #30 tabs 02/28/23 11/23/23 Rx calcium carbonate 500 mg PO DAILY 10/27/23 11/23/23 History cholecalciferol (vitamin D3) 25 25 mcg PO DAILY 10/27/23 11/23/23 History mcg (1,000 unit) capsule Have you fallen in the past year?: No Subjective Details: Patient is doing well after open right inguinal hernia repair Objective Details: Inguinal hernia incision healing well Coding Level of Care Code Global Post Op Diagnoses S/P inguinal hernia repair Z98.890; Z87.19 [facility] Medical History Wears dentures Wears glasses Bruising Easy bruising High cholesterol Smoker Shortness of breath on exertion History of echocardiogram Cardiology follow-up encounter Stage 3b chronic kidney disease (CKD) Thrombocytopenia Chronic kidney insufficiency Pleural effusion Secondary pulmonary arterial hypertension Atherosclerotic heart disease of lummi coronary artery without angina pectoris Intention tremor Carotid stenosis, bilateral Hyperlipidemia Nonrheumatic aortic (valve) stenosis Essential hypertension Tobacco dependence Bilateral inguinal hernia Left carotid bruit Abdominal aortic aneurysm (AAA) Anemia Subcutaneous mass of back PUD (peptic ulcer disease) Cough Arthritis Surgical History (Updated 11/23/23 @ 08:33 by Clarissa Cornejo) S/P inguinal hernia repair History of cardiac catheterization S/P AAA repair 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) History of left heart catheterization (11/27/18) History of aortic valve replacement (02/12/19) Family History Sister Asthma Mother Arthritis Diabetes Brother Cancer Unsure what kind- just a lump on his neck Social History Smoking Status: Current some day smoker tobacco type: cigarettes quit status: has quit before alcohol intake: never substance use type: does not use caffeine: Yes Type: coffee Number of servings: 3 what type of physical activity do you participate in: other frequency: 3-4 times per week seatbelt use: always Assessment and Plan (No Qualifiers) Assessment and Plan (1) S/P inguinal hernia repair: Status: Acute Plan: Patient doing well after right inguinal hernia repair. Plan for left side repair in 6 to 8 weeks. Marquise Barillas MD Pager: [facility] [address] [place] [address] Office: 11/23/23 0910 Date Marquise Barillas MD Cosigner Signature: Date (if applicable) CC: Normal [facility] Discharge Instructionon Discharge Instruction [facility] Medical Records Department [address] [place] [id number] Instructions for Home/Discharge Instructions 11/09/23 1144 MR#: [id number] Acct: [id number] Name: ABELARDO IVORY Rep #: [id number] : 1950 73 From: Marquise Braillas MD PCP: Dr. Padmini Carrasco MD [place] [facility] [place] Inst[place] Procedure Hernia Diet Discharge Diet: Light diet - advance as tolerated Activity Discharge Activity: May Not Drive (for 2-3 days or while taking narcotic pain meds.) and May Shower (Tomorrow) Lifting Restrictions: 20 pounds for 6 weeks. Additional Activity Instructions:: Climbing stairs is fine, walking is encouraged. Sitting in bed may be uncomfortable. Sitting up using your lateral muscles (sitting up sideways) is usually more comfortable. Do not drive, work heavy equipment of sign legal documents for 24 hours. If your hernia repair was an inguinal repair, you may have scrotal swelling, an ice pack and/or athletic support can provide more comfort. Pain medications may cause nausea, you should typically eat light foods as you take your pain medications. Pain medications may also cause constipation. If you have difficulty with this, discuss with your doctor. Oxycodone for breakthrough pain, use Tylenol and ibuprofen to treat pain normally Resume aspirin tomorrow Dressing / Incision Call your doctor if your incision/area has: Continuous Slow Oozing, Sudden Increased Bleeding, Increased Pain/ Swelling, Increased Redness and Foul Smelling Discharge Call your doctor if you observe: Fever of 101 or Higher Suture Line Care: Avoid Pulling/Pushing and Avoid Pinching/Bending Cleanse incision/area with: Soap Water Follow Up Care Please Follow Up With: Marquise Barillas MD When: Please call to schedule 2 week follow up appointment. [phone] Test Results: Test results from this visit will be discussed in further detail at your follow-up appointment, if applicable. Discharge Plan Admission Attending Provider: Marquise Barillas Primary Care Provider: Padmini Carrasco Instructions Print Language: Guamanian Discharge Orders/Prescriptions Prescriptions: New oxycodone 5 mg Tablet 5 - 10 mg PO Q4H PRN PRN (Reason: Pain Score 4-10) 5 Days Qty: 20 0RF No Action amlodipine 5 mg tablet 5 mg PO DAILY Qty: 30 11RF Trelegy Ellipta 200-62.5-25 mcg blister with device 1 inh inhalation DAILY Qty: 60 6RF aspirin 81 mg tablet,delayed release (DR/EC) 81 mg PO DAILY rosuvastatin [Crestor] 5 mg tablet 5 mg PO DAILY calcium carbonate 500 mg calcium (1,250 mg) tablet 500 mg PO DAILY cholecalciferol (vitamin D3) 25 mcg (1,000 unit) capsule 25 mcg PO DAILY metoprolol tartrate 25 mg tablet 12.5 mg PO BID Qty: 90 3RF Other Ambulatory Orders: 12 Lead EKG (Routine) Timeframe: 20231027 Location: None Selected Ordered By: Dr. Kwame Belle Referrals / Follow Up: Padmini Carrasco MD [Primary Care Provider] - Disposition Disposition (needs filled in before D/C Order can be placed): Home, Self Care 11/09/23 1147 Marquise Barillas MD CC: Dr. Padmini Carrasco MD Signed [facility] MR/POSTOP.[facility] 11-09-2023 MR/POSTOP.[facility] Medical Records Department [address] [place] [address] Anesthesia Postop Eval I 11/09/23 1135 MR#: [id number] Acct: [id number] Name: ABELARDO IVORY Rep #: [id number] : 1950 73 From: Yojana Jenkins PCP: Dr. Padmini Carrasco MD [place] [facility] [place] Race: C Location: [place] [address] Anesthesia: Postop Eval I Current Vital Signs Temperature: 97.4 F Pulse Rate: 63 Blood Pressure: 163/76 Respiratory Rate: 18 Pulse Ox: 100 Assessment Airway patent: Yes Spontaneous unlabored respirations: Yes nausea: No Vomiting: No Anesthesia Complication: No Fluid Hydration Crystalloid volume administer (ml): 500 Total IV fluid infused: 500 Progress Note Anesthesia document: Postop Eval 1 completed: Yes 11/09/23 1138 Date Yojana Jackson Signature: Date CC: Signed [facility] MR/[id number] 11-09-2023 MR/POSTOPAN2 [facility] Medical Records Department [address] [place] [address] Anesthesia Postop Eval II 11/09/23 1146 MR#: [id number] Acct: [id number] Name: ABELARDO IVORY Rep #: [id number] : 1950 73 From: Kwame Belle MD PCP: Dr. 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 Spontaneous unlabored Yes 11/09/23 11:35 [email or web address] [email or web address] respirations Mental status nausea No 11/09/23 11:35 [employer]HALT [email or web address].CSIR Vomiting No 11/09/23 11:35 [email or web address] [email or web address].CSIR Anesthesia Postop Eval I: Fluid Summary Crystalloid volume administer 500 11/09/23 11:35 [email or web address] [email or web address].CSIR (ml) Colloids volume administered ( ml) Blood Product volume administered (ml) Total IV fluid infused 500 11/09/23 11:35 [email or web address] [email or web address] Anesthesia Postop Eval I: Summary Notes Anesthesia Complication No 11/09/23 11:35 ASPHALT [email or web address].CSIR Anesthesia Complication Comment: Post-operative progress note Anesthesia: Postop Eval II Evaluation Mental status: Awake Pain Level: 0 nausea: No Vomiting: No 11/09/23 1146 Date Kwame Adrianignsary Signature: Date CC: Signed Normal [facility] Operative Reporton Operative Report [facility] Medical Records Department [address] [place] [address] Operative Report 11/09/23 1139 MR#: [id number] Acct: [id number] Name: ABELARDO IVORY Rep #: [id number] : 1950 73 From: Marquise Barillas MD PCP: Dr. Padmini Carrasco MD Status:[facility] Location: [place] [address] Report of Operation Date of Procedure: 11/09/23 Pre-Operative Diagnosis: Right inguinal hernia Post-Operative Diagnosis: Right inguinal hernia Surgery/Procedure Performed:: Right inguinal hernia repair with mesh Type of Anesthesia: General/Regional Specimen's removed: Hernia sac Estimated Blood Loss (mL): 10 Description of Procedure: Patient was brought back to the operating room and general anesthesia was induced. The right groin was prepped and draped in usual sterile fashion. Incision was marked in the right inguinal region and then injected with local anesthetic. Incision was made with a scalpel and deepened to the external aponeurosis. The external aponeurosis was splayed out and very thinned due to the chronic hernia. After this was open the hernia sac was identified and used and brought into the incision the cord was identified as well and a Vernon was placed around the cord. Next after the hernia sac was completely divided from the spermatic cord it was opened and then followed downward until bowel was encountered. The bowel was reduced and then the hernia sac was closed with a pursestring 0 silk suture. The hernia sac was amputated and sent for pathology. The stump of the hernia sac was reduced. Next a Bard keyhole mesh was sutured to the pubic tubercle using 2-0 PDS suture. It was then sutured to the shelving portion of the inguinal ligament laterally using interrupted 2-0 PDS sutures. It was sutured medially to the conjoined tendon using interrupted sutures. Next the tails were placed around the spermatic cord and sutured together using 2-0 PDS. They were tucked under the external aponeurosis. The area was irrigated and suctioned dry. The testicle was placed down into the inguinal canal and into the scrotum the Sadiq was removed. Next the external aponeurosis was reapproximated using a running 3-0 Vicryl suture and then Duran's fascia was closed using interrupted 3-0 Vicryl sutures. Local anesthetic was injected and the skin was closed with a running 4-0 Monocryl suture and Dermabond was applied. Scrotum was checked at the end of the case and contain both testicles. Patient was awoken and taken to PACU in stable condition. Grafts/Implants Used: Bard keyhole mesh Admit VTE Documentation VTE Mechan Device Prophylaxis: SCD's 11/09/23 1144 Cosigner Signature (if applicable): CC: Dr. Marquise Barillas MD; Dr. Padmini Carrasco MD Signed Normal [facility] Surgery Specimen Level IIon 11-09-2023 Surgery Specimen Level II Patient Age/Sex Location Account Attending Physician ABELARDO IVORY 73/M [facility] [id number]. Marquise Barillas MD Specimen: [id number] Received: 11/09/23 Status: EZEQUIEL Mack Num: [id number] Spec Type: Hernia Subm Dr: Dr. Marquise Barillas MD HEADER OPERATION: Open hernia, inguinal with mesh PRE-OP DIAGNOSIS: Right inguinal hernia TISSUE SUBMITTED: Right inguinal hernia sac MICROSCOPIC DIAGNOSIS Right inguinal hernia sac: A piece of fibroadipose and fibroconnective tissue consistent with hernia sac with focal dense fibrosis, reactive changes and granulation tissue reaction. Truong 11/10/2023 MICROSCOPIC DESCRIPTION Slides are reviewed. GROSS DESCRIPTION Received in fixative is one container labeled with the patient's name and designated Right inguinal hernia sac. The specimen consists of an irregular piece of yellow-pink soft tissue measuring 15.0 x 7.0 x 1.0cm. Sections do not reveal any mass lesions. Snowblower Mechanic sections are submitted in one cassette. Truong 11/09/2023 TC:5 CPT:96781 Patient Age/Sex Location Account Attending Physician ABELARDO IVORY 73/[place] [facility] [place] [id number]. Marquise Barillas MD Signed (signature on file) Dr. Keith Gates MD 11/10/23 1326 Normal [facility] Comment on above: Performed By: #### L 506.1001, L509.1000, L503.0106 #### [facility] [address] [place], [address] 12 Lead EKGon 10-27-2023 12 Lead EKG [facility] Cardiovascular Services [address] [place] [address] 12 Lead EKG 10/27/23 1215 MR#: [id number] Acct: [id number] Name: ABELARDO IVORY Rep #: [id number] : 1950 73 From: Evgeny Jacobo MD Attending Dr: Dr. Marquise Barillas MD Status: PRE [facility] [place] Order[place]: Kwame Belle MD Date: 10/27/23 [place] [facility] [place] Sex: M C Admitted: Test Reason : PRE OP Blood Pressure : / mmHG Vent. Rate : 054 BPM Atrial Rate : 054 BPM P-R Int : 162 ms QRS Dur : 088 ms QT Int : 414 ms P-R-T Axes : 080 083 084 degrees QTc Int : 392 ms Sinus bradycardia Otherwise normal ECG Confirmed by Evgeny Jacobo ([id number]), news videotape editor CHRISTINA RODAS ([id number]) on 10/31/2023 10:18:03 AM Referred By: Marquise Barillas Confirmed By:Evgeny Jacobo 10/31/23 1018 Date Evgeny Jacobo MD CC: Dr. Marquise Barillas MD; Dr. Padmini Carrasco MD; Dr. Kwame Belle MD Signed Normal [facility] Basic Metabolic Profile (BMP )on 10-27-2023 BUN/CRE 17.7 RATIO Normal 10-20 [facility] Comment on above: Performed By: #### L 100.0500, L500.2500 #### [facility] [address] [place], [address] CA,Total 8.7 mg/dL Normal 8.5-10.1 [facility] Comment on above: Performed By: #### L 100.0500, L500.2500 #### [facility] [address] [place], [address] Chloride [Moles/Vol] 104 mmol/L Normal 98-107 [facility] Comment on above: Performed By: #### L 100.0500, L500.2500 #### [facility] [address] [place], [address] CO2 [Moles/Vol] 28.0 mmol/L Normal 21.0-32.0 [facility] Comment on above: Performed By: #### L 100.0500, L500.2500 #### [facility] [address] [place], [address] Creatinine [Mass/Vol] 1.47 mg/dL High 0.70-1.30 [facility] Comment on above: Result Comment: The validity of the calculated GFR GFRAA in patients over 70 years has not been determined. Clinical correlation is essential. Performed By: #### L 100.0500, L500.2500 #### [facility] [address] [place], [address] EST GFR - AA 60 mL/min Normal >60 [facility] Comment on above: Result Comment: Afri can Qatari GFR Calc Performed By: #### L 100.0500, L500.2500 #### [facility] [address] [place], [address] GAP 4 Low 5-15 [facility] Comment on above: Performed By: #### L 100.0500, L500.2500 #### [facility] [address] [place], [address] GFR/1.73 sq M.predicted among non-blacks MDRD (S/P/Bld) [Vol rate/Area] 50 mL/min/{1.73_m2} Low >60 [facility] Comment on above: Result Comment: Non- GFR Calc Performed By: #### L 100.0500, L500.2500 #### [facility] [address] [place], [address] Glucose [Mass/Vol] 103 mg/dL Normal 74-106 [facility] Comment on above: Result Comment: Fast ing Glucose result from 100 to 125 mg/dL suggests IMPAIRED HOMEOSTASIS per A.D.A. criteria. Performed By: #### L 100.0500, L500.2500 #### [facility] [address] [place], [address] Potassium [Moles/Vol] 4.4 mmol/L Normal 3.5-5.1 [facility] Comment on above: Performed By: #### L 100.0500, L500.2500 #### [facility] [address] [place], [address] Sodium [Moles/Vol] 136 mmol/L Normal 136-145 [facility] Comment on above: Performed By: #### L 100.0500, L500.2500 #### [facility] [address] [place], [address] Urea nitrogen [Mass/Vol] 26 mg/dL High 7-18 [facility] Comment on above: Performed By: #### L 100.0500, L500.2500 #### [facility] [address] [place], [address] CBC-Complete Blood Cnt No Di ffon 10-27-2023 Erythrocyte distribution width (RBC) [Ratio] 13.3 % Normal 11.6-14.6 [facility] Comment on above: Performed By: #### L 100.0500, L500.2500 #### [facility] [address] [place], [address] Hematocrit (Bld) [Volume fraction] 40.7 % Normal 40-54 [facility] Comment on above: Performed By: #### L 100.0500, L500.2500 #### [facility] [address] [place], [address] Hemoglobin (Bld) [Mass/Vol] 13.0 g/dL Normal 13.0-16.5 [facility] Comment on above: Performed By: #### L 100.0500, L500.2500 #### [facility] [address] [place], [address] MCH (RBC) [Entitic mass] 29.5 pg Normal 27.0-32.0 [facility] Comment on above: Performed By: #### L 100.0500, L500.2500 #### [facility] [address] [place], [address] MCHC (RBC) [Mass/Vol] 31.9 g/dL Low 32-36 [facility] Comment on above: Performed By: #### L 100.0500, L500.2500 #### [facility] [address] [place], [address] MCV (RBC) [Entitic vol] 92.3 fL Normal 80-94 [facility] Comment on above: Performed By: #### L 100.0500, L500.2500 #### [facility] [address] [place], [address] Platelet mean volume (Bld) [Entitic vol] 8.6 fL Normal 6.2-12.0 [facility] Comment on above: Performed By: #### L 100.0500, L500.2500 #### [facility] [address] [place], [address] Platelets (Bld) [#/Vol] 164 10*3/uL Normal 150-450 [facility] Comment on above: Performed By: #### L 100.0500, L500.2500 #### [facility] [address] [place], [address] RBC (Bld) [#/Vol] 4.41 10*6/uL Low 4.6-6.2 [facility] Comment on above: Performed By: #### L 100.0500, L500.2500 #### [facility] [address] [place], [address] RDW SD 45.3 fl High 35.1-43.9 [facility] Comment on above: Performed By: #### L 100.0500, L500.2500 #### [facility] [address] [place], [address] WBC (Bld) [#/Vol] 6.8 10*3/uL Normal 4.4-11.0 [facility] Comment on above: Performed By: #### L 100.0500, L500.2500 #### [facility] [address] [place], [address] Surgery Visit Reporton 10-23 Surgery Visit Report [facility] [address] [place] [address] OFFICE VISIT Date of Service: 10/24/23 MR#: [id number] Acct: [id number] Name: ABELARDO IVORY Rep #: [id number] : 1950 Provider: Dr. Marquise tsai MD Age/Sex: 73/M Location: [facility] Status: Signed Intake Vital Signs 08/25/23 09:12 10/24/23 08:27 Height 5 ft 6 in 5 ft 6 in Weight: 159 lb 5 oz 160 lb BMI 25.7 25.8 BP 111/65 165/75 H Blood Pressure Location Lt brachial Rt brachial Position Sitting Sitting Respiration 16 18 Pulse 51 L 62 Pulse Source Monitor Palpation Temp 97.2 F L Temp Source Temporal Pulse Oximetry (%) 98 Oxygen Delivery Method room air Intake Visit Reasons: BILATERAL HERNIA Chief Complaint: bilateral hernia Is patient in pain?: No Allergies No Known Allergies Allergy (Verified 10/24/23 08:27) Medications ???Medication ???Instructions ???Recorded ???Confirmed ???Type aspirin 81 mg tablet,delayed 81 mg PO DAILY heart health 03/02/22 10/24/23 History release rosuvastatin 5 mg tablet (Crestor) 5 mg PO DAILY cholesterol 03/02/22 10/24/23 History metoprolol tartrate 25 mg tablet 12.5 mg (1/2 x 25 mg) PO BID #90 01/14/23 10/24/23 Rx tabs fluticasone fur. 200 mcg-umeclid 1 inh inhalation DAILY #60 ea 01/27/23 10/24/23 Rx 62.5 mcg-vilant 25 mcg inhalat.powder (Trelegy Ellipta) amlodipine 5 mg tablet 5 mg PO DAILY #30 tabs 02/28/23 10/24/23 Rx Have you fallen in the past year?: No PFSH Medical History Stage 3b chronic kidney disease (CKD) Thrombocytopenia Chronic kidney insufficiency Pleural effusion Secondary pulmonary arterial hypertension Atherosclerotic heart disease of lummi coronary artery without angina pectoris Intention tremor Carotid stenosis, bilateral Hyperlipidemia Nonrheumatic aortic (valve) stenosis Essential hypertension Tobacco dependence Bilateral inguinal hernia Left carotid bruit Abdominal aortic aneurysm (AAA) Anemia Subcutaneous mass of back PUD (peptic ulcer disease) Cough Arthritis Surgical History S/P AAA repair 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) History of left heart catheterization (11/27/18) History of aortic valve replacement (02/12/19) No history of previous surgery Family History Sister Asthma Mother Arthritis Diabetes Brother Cancer Unsure what kind- just a lump on his neck Social History Smoking Status: Current some day smoker tobacco type: cigarettes quit status: has quit before alcohol intake: never substance use type: does not use caffeine: Yes Type: coffee Number of servings: 3 what type of physical activity do you participate in: other frequency: 3-4 times per week seatbelt use: always HPI HPI HPI: Patient is a 73-year-old male with the bilateral inguinal hernias. He is here because these hernias are growing larger. He says they have been there for at least 5 years. He had an open infrarenal abdominal aortic aneurysm repair about 1 year ago. ROS General General: No weight change, appetite, fatigue, colon cancer, breast cancer or weakness HEENT HEENT: No difficulty swallowing, eye injury, eye surgery, swollen glands or hoarseness Endo Endocrine: Yes Hair loss; No thyroid disease, diabetes mellitus, thyroid cancer, heat intolerance or cold intolerance Skin Skin: Yes rash; No changing moles Musc Musculoskeletal: Yes joint pain; No back problems, arthritis, rheumatoid arthritis or gout Cardio Cardiovascular: Yes heart disease, high blood pressure and shortness of breat with exertion; No murmur, pacemaker, atrial fibrillation, heart attack, heart stent, palpitations or chest pain Psych Psychiatric: No depression, anxiety or hearing voices Resp Respiratory: Yes shortness of breath, No sleep apnea, No cough, No COPD, Yes asthma, No emphysema and No wheezing Gastro Gastrointestinal: No abdominal pain, No nausea or vomiting, No diarrhea, No constipation, No blood in stool, No acid reflux, No hemorrhoids, No ulcers, No gallbladder problem and No black,tarry sto ols Miguel A Hematologic: No blood thinners, No blood disorders, No bleeding, No anemia and No blood clots Neuro Neurologic: No system reviewed and no additional complaints, except as documented, No as per HPI, No abnormal gait, No abnormal hearing, No abnormal movements, No abnormal speech, No behavioral changes, No burning sensations, No confusion, No convulsions, No disequilibrium, No dizziness, No localized weakness, No frequent falls, No headache(s), No lack of coordination, No (more content not included)... Normal [facility] Basophil percentageOrdered B y: Farheen Alexander on 02-28-2023 Bilirubin [Mass/Vol] 0.20 mg/dL 0.20-1.00 [facility] Comment on above: For patients on eltr ombopag therapy, use of Dimension [place] TBIL is not recommended. Cholesterol [Mass/Vol] 119 mg/dL <200 [facility] Comment on above: <200 mg/dL Desirable 200-240 mg/dL Borderline >240 mg/dL High Risk Protein [Mass/Vol] 7.4 g/dL 6.4-8.2 [facility] Triglyceride [Mass/Vol] 100 mg/dL <199 [facility] Comment on above: The drugs N-Acetylcy steine and Metamizole may falsely depress this assay.Serum Triglycerides Reference Interval Normal <150 mg/dL Borderline high 150 - 199 mg/dL High 200 - 499 mg/dL Very High > or = 500 mg/dL Direct bilirubinOrdered By: Farheen Alexander on 02-28-2023 Bilirubin.direct [Mass/Vol] 0.11 mg/dL 0.00-0.30 [facility] High density lipoprotein (HD L) measurementOrdered By: Farheen Alexander on 02-28-2023 Cholesterol in HDL (Body fld) [Mass/Vol] 49 mg/dL >40 [facility] Comment on above: The drugs N-Acetylcy steine and Metamizole may falsely depress this assay. Reference Range HDL <40 mg/dL Low HDL Cholesterol HDL >or= 60 mg/dL High HDL Cholesterol Laboratory - Chemistry and C hemistry - challengeOrdered By: Farheen Alexander on 02-28-2023 ALP [Catalytic activity/Vol] 84 U/L 45-117 [facility] ALT [Catalytic activity/Vol] 12 U/L 16-61 [facility] Globulin (S) [Mass/Vol] 4.0 g/dL 2.2-4.2 [facility] Low density lipoprotein (LDL ) cholesterol measurementOrdered By: Farheen Alexander on 02-28-2023 Cholesterol in LDL (Body fld) [Moles/Vol] 50 mg/dL 0-130 [facility] Thin prep Papanicolaou smear with manual screeningOrdered By: Farheen Alexander on 02-28-2023 Thin prep Papanicolaou smear with manual screening 3.4 g/dL 3.2-5.0 [facility] Thin prep Papanicolaou smear with manual screening 13 U/L 15-37 [facility] Very low density lipoprotein (VLDL) cholesterol measurementOrdered By: Farheen Alexander on 02-28-2023 Cholesterol in VLDL Calc [Moles/Vol] 20 mg/dL 5-40 [facility] Basophil percentageOrdered B y: Ezekiel Carrasco on 12-14-2022 Chloride [Moles/Vol] 104 mmol/L 98-107 [facility] Glucose [Mass/Vol] 125 mg/dL 74-106 [facility] Comment on above: Fasting Glucose resu lt from 100 to 125 mg/dL suggests IMPAIRED HOMEOSTASIS per A.D.A. criteria. Potassium [Moles/Vol] 4.6 mmol/L 3.5-5.1 [facility] Sodium [Moles/Vol] 137 mmol/L 136-145 [facility] WBC (Bld) [#/Vol] 7.9 10*3/uL 4.4-11.0 [facility] Blood erythrocytes count (nu mber/volume)Ordered By: Ezekiel Carrasco on 12-14-2022 RBC (Bld) [#/Vol] 4.24 10*6/uL 4.6-6.2 [facility] Blood hemoglobin measurement (mass/volume)Ordered By: Ezekiel Carrasco on 12-14-2022 Hemoglobin (Bld) [Mass/Vol] 11.4 g/dL 13.0-16.5 [facility] Blood platelet mean volumeOr dered By: Ezekiel Carrasco on 12-14-2022 Platelet mean volume (Bld) [Entitic vol] 9.0 fL 6.2-12.0 [facility] Determination of erythrocyte mean corpuscular volume (MCV)Ordered By: Ezekiel Carrasco on 12-14-2022 MCV (RBC) [Entitic vol] 90.1 fL 80-94 [facility] Hematocrit Auto (Bld) [Volum e fraction]Ordered By: Ezekiel Carrasco on 12-14-2022 Hematocrit (Bld) [Volume fraction] 38.2 % 40-54 [facility] Iron measurement (mass/mass) Ordered By: Ezekiel Carrasco on 12-14-2022 Iron (Unsp spec) [Mass/Mass] 31 ug/dL 65-175 [facility] Laboratory - Chemistry and C hemistry - challengeOrdered By: Ezekiel Carrasco on 12-14-2022 Natriuretic peptide B (Bld) [Mass/Vol] 71.3 pg/mL 0-100 [facility] CO2 [Moles/Vol] 29.0 mmol/L 21.0-32.0 [facility] Urea nitrogen/Creatinine [Mass ratio] 17.7 mg/mg 10-20 [facility] Laboratory - Hematology and Cell countsOrdered By: Ezekiel Carrasco on 12-14-2022 Erythrocyte distribution width (RBC) [Entitic vol] 47.3 fL 35.1-43.9 [facility] Erythrocyte distribution width (RBC) [Ratio] 14.3 % 11.6-14.6 [facility] MCH (RBC) [Entitic mass] 26.9 pg 27.0-32.0 [facility] MCHC Auto (RBC) [Mass/Vol]Or dered By: Ezekiel Carrasco on 12-14-2022 MCHC (RBC) [Mass/Vol] 29.8 g/dL 32-36 [facility] No Panel InformationOrdered By: Ezekiel Carrasco on 12-14-2022 Estimated GFR (MDRD) Amer 53 mL/min >60 [facility] Comment on above: GFR Calc Estimated GFR (MDRD) Non-Af Amer 44 mL/min >60 [facility] Comment on above: Non- GFR Calc Parathyroid Hormone (Intact) 83.4 pg/mL 18.4-80.1 [facility] Vitamin D 25-Hydroxy 28.8 ng/mL [facility] Comment on above: Vitamin D 25(OH) Sta tus Range Deficiency <20 ng/mL (50nmol/L) Insufficiency 20 - 30 ng/mL (50 - 75 nmol/L) Sufficiency 30 - 100 ng/mL (75 - 250 nmol/L) Toxicity >100 ng/mL (>250 nmol/L) Platelets bldOrdered By: Agueda liyah Luna on 12-14-2022 Platelets (Bld) [#/Vol] 278 10*3/uL 150-450 [facility] Serum or plasma calcium jamel urement (mass/volume)Ordered By: Ezekiel Carrasco on 12-14-2022 Calcium [Mass/Vol] 8.9 mg/dL 8.5-10.1 [facility] Serum or plasma creatinine m easurement (mass/volume)Ordered By: Ezekiel Carrasco on 12-14-2022 Creatinine [Mass/Vol] 1.64 mg/dL 0.70-1.30 [facility] Comment on above: The validity of the calculated GFR & GFRAA in patients over 70 years has not been determined. Clinical correlation is essential. Serum or plasma urea nitroge n measurement (mass/volume)Ordered By: Ezekiel Carrasco on 12-14-2022 Urea nitrogen [Mass/Vol] 29 mg/dL 7-18 [facility] Thin prep Papanicolaou smear with manual screeningOrdered By: Ezekiel Carrasco on 12-14-2022 Thin prep Papanicolaou smear with manual screening 4 5-15 [facility] Basophil percentageOrdered B y: Ezekiel Carrasco on 08-16-2022 Bilirubin [Mass/Vol] 0.30 mg/dL 0.20-1.00 [facility] Comment on above: For patients on eltr ombopag therapy, use of [place] TBIL is not recommended. Chloride [Moles/Vol] 106 mmol/L 98-107 [facility] Glucose [Mass/Vol] 136 mg/dL 74-106 [facility] Comment on above: Fasting Glucose resu lt greater than or equal to 126 mg/dL suggests DIABETES MELLITUS per A.D.A. criteria. Potassium [Moles/Vol] 4.0 mmol/L 3.5-5.1 [facility] Protein [Mass/Vol] 7.0 g/dL 6.4-8.2 [facility] Sodium [Moles/Vol] 138 mmol/L 136-145 [facility] WBC (Bld) [#/Vol] 6.0 10*3/uL 4.4-11.0 [facility] Blood erythrocytes count (nu mber/volume)Ordered By: Ezekiel Carrasco on 08-16-2022 RBC (Bld) [#/Vol] 4.10 10*6/uL 4.6-6.2 [facility] Blood hemoglobin measurement (mass/volume)Ordered By: Ezekiel Carrasco on 08-16-2022 Hemoglobin (Bld) [Mass/Vol] 11.7 g/dL 13.0-16.5 [facility] Blood platelet mean volumeOr dered By: Ezekiel Carrasco on 08-16-2022 Platelet mean volume (Bld) [Entitic vol] 8.9 fL 6.2-12.0 [facility] Determination of erythrocyte mean corpuscular volume (MCV)Ordered By: Ezekiel Carrasco on 08-16-2022 MCV (RBC) [Entitic vol] 91.7 fL 80-94 [facility] Hematocrit Auto (Bld) [Volum e fraction]Ordered By: Ezekiel Carrasco on 08-16-2022 Hematocrit (Bld) [Volume fraction] 37.6 % 40-54 [facility] Hemoglobin in reticulocytes (mass per reticulocyte)Ordered By: Ezekiel Carrasco on 08-16-2022 Hemoglobin (Reticulocytes) [Entitic mass] 31.1 pg 30-35 [facility] Iron measurement (mass/mass) Ordered By: Ezekiel Carrasco on 08-16-2022 Iron (Unsp spec) [Mass/Mass] 45 ug/dL 65-175 [facility] Laboratory - Chemistry and C hemistry - challengeOrdered By: Ezekiel Carrasco on 08-16-2022 Natriuretic peptide B (Bld) [Mass/Vol] 196.1 pg/mL 0-100 [facility] ALP [Catalytic activity/Vol] 68 U/L 45-117 [facility] ALT [Catalytic activity/Vol] 11 U/L 16-61 [facility] CO2 [Moles/Vol] 29.0 mmol/L 21.0-32.0 [facility] Cobalamin (Vitamin B12) [Mass/Vol] 188 pg/mL 211-911 [facility] Globulin (S) [Mass/Vol] 3.7 g/dL 2.2-4.2 [facility] Urea nitrogen/Creatinine [Mass ratio] 12.7 mg/mg 10-20 [facility] Laboratory - Hematology and Cell countsOrdered By: Ezekiel Carrasco on 08-16-2022 Erythrocyte distribution width (RBC) [Entitic vol] 47.7 fL 35.1-43.9 [facility] Erythrocyte distribution width (RBC) [Ratio] 14.2 % 11.6-14.6 [facility] MCH (RBC) [Entitic mass] 28.5 pg 27.0-32.0 [facility] MCHC Auto (RBC) [Mass/Vol]Or dered By: Ezekiel Carrasco on 08-16-2022 MCHC (RBC) [Mass/Vol] 31.1 g/dL 32-36 [facility] No Panel InformationOrdered By: Ezekiel Carrasco on 08-16-2022 Estimated GFR (MDRD) Amer 53 mL/min >60 [facility] Comment on above: GFR Calc Estimated GFR (MDRD) Non-Af Amer 43 mL/min >60 [facility] Comment on above: Non- GFR Calc Immature Reticulocyte Fraction 8.60 % 3.00-15.90 [facility] Reticulocyte Count 0.92 % 0.5-1.5 [facility] Thyroid Stimulating Hormone (TSH) 1.68 uIU/mL 0.358-3.74 [facility] Total Iron Binding Capacity 323 ug/dL 250-450 [facility] Platelets bldOrdered By: Agueda Carrasco on 08-16-2022 Platelets (Bld) [#/Vol] 181 10*3/uL 150-450 [facility] Serum or plasma albumin jamel urement (mass/volume)Ordered By: Ezekiel Carrasco on 08-16-2022 Albumin [Mass/Vol] 3.3 g/dL 3.2-5.0 [facility] Serum or plasma albumin/glob ulin mass ratioOrdered By: Ezekiel Carrasco on 08-16-2022 Albumin/Globulin [Mass ratio] 0.9 {ratio} 0.9-2.4 [facility] Serum or plasma calcium jamel urement (mass/volume)Ordered By: Ezekiel Carrasco on 08-16-2022 Calcium [Mass/Vol] 8.6 mg/dL 8.5-10.1 [facility] Serum or plasma creatinine m easurement (mass/volume)Ordered By: Ezekiel Carrasco on 08-16-2022 Creatinine [Mass/Vol] 1.66 mg/dL 0.70-1.30 [facility] Comment on above: The validity of the calculated GFR & GFRAA in patients over 70 years has not been determined. Clinical correlation is essential. Serum or plasma ferritin ahmet surement (mass/volume)Ordered By: Ezekiel Carrasco on 08-16-2022 Ferritin [Mass/Vol] 49 ng/mL 26-388 [facility] Serum or plasma urea nitroge n measurement (mass/volume)Ordered By: Ezekiel Carrasco on 08-16-2022 Urea nitrogen [Mass/Vol] 21 mg/dL 7-18 [facility] Thin prep Papanicolaou smear with manual screeningOrdered By: Ezekiel Carrasco on 08-16-2022 Thin prep Papanicolaou smear with manual screening 11 U/L 15-37 [facility] Thin prep Papanicolaou smear with manual screening 3 5-15 [facility] Basophil percentageOrdered B y: Isela Kwok on 05-17-2022 Chloride [Moles/Vol] 107 mmol/L 98-107 [facility] Glucose [Mass/Vol] 99 mg/dL 74-106 [facility] Potassium [Moles/Vol] 4.3 mmol/L 3.5-5.1 [facility] Sodium [Moles/Vol] 136 mmol/L 136-145 [facility] Laboratory - Chemistry and C hemistry - challengeOrdered By: Isela Kwok on 05-17-2022 CO2 [Moles/Vol] 27.0 mmol/L 21.0-32.0 [facility] Urea nitrogen/Creatinine [Mass ratio] 16.3 mg/mg 10-20 [facility] No Panel InformationOrdered By: Isela Kwok on 05-17-2022 Estimated GFR (MDRD) Amer 53 mL/min >60 [facility] Comment on above: GFR Calc Estimated GFR (MDRD) Non-Af Amer 44 mL/min >60 [facility] Comment on above: Non- GFR Calc Serum or plasma calcium jamel urement (mass/volume)Ordered By: Isela Kwok on 05-17-2022 Calcium [Mass/Vol] 8.9 mg/dL 8.5-10.1 [facility] Serum or plasma creatinine m easurement (mass/volume)Ordered By: Isela Kwok on 05-17-2022 Creatinine [Mass/Vol] 1.66 mg/dL 0.70-1.30 [facility] Comment on above: The validity of the calculated GFR & GFRAA in patients over 70 years has not been determined. Clinical correlation is essential. Serum or plasma urea nitroge n measurement (mass/volume)Ordered By: Isela Kwok on 05-17-2022 Urea nitrogen [Mass/Vol] 27 mg/dL 7-18 [facility] Thin prep Papanicolaou smear with manual screeningOrdered By: Isela Kwok on 05-17-2022 Thin prep Papanicolaou smear with manual screening 2 5-15 [facility] Basophil percentageOrdered B y: Tc Subramanian on 04-02-2022 Chloride [Moles/Vol] 97 mmol/L 98-107 [facility] Glucose [Mass/Vol] 206 mg/dL 74-106 [facility] Comment on above: Glucose result great er than or equal to 200 mg/dLsuggests DIABETES MELLITUS per A.D.A. criteria. Potassium [Moles/Vol] 4.2 mmol/L 3.5-5.1 [facility] Sodium [Moles/Vol] 135 mmol/L 136-145 [facility] Laboratory - Chemistry and C hemistry - challengeOrdered By: Tc Subramanian on 04-02-2022 CO2 [Moles/Vol] 29.0 mmol/L 21.0-32.0 [facility] Urea nitrogen/Creatinine [Mass ratio] 22.0 mg/mg 10-20 [facility] No Panel InformationOrdered By: Tc Subramanian on 04-02-2022 Estimated GFR (MDRD) Amer 47 mL/min >60 [facility] Comment on above: GFR Calc Estimated GFR (MDRD) Non-Af Amer 39 mL/min >60 [facility] Comment on above: Non- GFR Calc Serum or plasma calcium jamel urement (mass/volume)Ordered By: Tc Subramanian on 04-02-2022 Calcium [Mass/Vol] 8.9 mg/dL 8.5-10.1 [facility] Serum or plasma creatinine m easurement (mass/volume)Ordered By: Tc Subramanian on 04-02-2022 Creatinine [Mass/Vol] 1.82 mg/dL 0.70-1.30 [facility] Comment on above: The validity of the calculated GFR & GFRAA in patients over 70 years has not been determined. Clinical correlation is essential. Serum or plasma urea nitroge n measurement (mass/volume)Ordered By: Tc Subramanian on 04-02-2022 Urea nitrogen [Mass/Vol] 40 mg/dL 7-18 [facility] Thin prep Papanicolaou smear with manual screeningOrdered By: Tc Subramanian on 04-02-2022 Thin prep Papanicolaou smear with manual screening 9 5-15 [facility] Basophil percentageOrdered B y: Tc Subramanian on 03-29-2022 Chloride [Moles/Vol] 98 mmol/L 98-107 [facility] Glucose [Mass/Vol] 101 mg/dL 74-106 [facility] Comment on above: Fasting Glucose resu lt from 100 to 125 mg/dL suggests IMPAIRED HOMEOSTASIS per A.D.A. criteria. Potassium [Moles/Vol] 5.3 mmol/L 3.5-5.1 [facility] Sodium [Moles/Vol] 135 mmol/L 136-145 [facility] Laboratory - Chemistry and C hemistry - challengeOrdered By: Tc Subramanian on 03-29-2022 CO2 [Moles/Vol] 32.0 mmol/L 21.0-32.0 [facility] Urea nitrogen/Creatinine [Mass ratio] 19.3 mg/mg 10-20 [facility] No Panel InformationOrdered By: Tc Subramanian on 03-29-2022 Estimated GFR (MDRD) Amer 30 mL/min >60 [facility] Comment on above: GFR Calc Estimated GFR (MDRD) Non-Af Amer 25 mL/min >60 [facility] Comment on above: Non- GFR Calc Serum or plasma calcium jamel urement (mass/volume)Ordered By: Tc Subramanian on 03-29-2022 Calcium [Mass/Vol] 8.7 mg/dL 8.5-10.1 [facility] Serum or plasma creatinine m easurement (mass/volume)Ordered By: Tc Subramanian on 03-29-2022 Creatinine [Mass/Vol] 2.69 mg/dL 0.70-1.30 [facility] Comment on above: The validity of the calculated GFR & GFRAA in patients over 70 years has not been determined. Clinical correlation is essential. Serum or plasma urea nitroge n measurement (mass/volume)Ordered By: Tc Subramanian on 03-29-2022 Urea nitrogen [Mass/Vol] 52 mg/dL 7-18 [facility] Thin prep Papanicolaou smear with manual screeningOrdered By: Tc Subramanian on 03-29-2022 Thin prep Papanicolaou smear with manual screening 5 5-15 [facility] Absolute lymphocyte countOrd ered By: Dr. Carrasco on 03-18-2022 Lymphocytes Auto (Unsp spec) [#/Vol] 1.42 10*3/uL 0.83-4.51 [facility] Basophil percentageOrdered B y: Dr. Carrasco on 03-18-2022 Basophils/100 WBC (Bld) 0.0 % 0-1 [facility] Bilirubin [Mass/Vol] 0.30 mg/dL 0.20-1.00 [facility] Comment on above: For patients on eltr ombopag therapy, use of Dim[place] TBIL is not recommended. Chloride [Moles/Vol] 98 mmol/L 98-107 [facility] Eosinophils/100 WBC (Bld) 0.0 % 0-5 [facility] Glucose [Mass/Vol] 333 mg/dL 74-106 [facility] Comment on above: Glucose result great er than or equal to 200 mg/dLsuggests DIABETES MELLITUS per A.D.A. criteria. Neutrophils (Bld) [#/Vol] 4.8 10*3/uL 2.0-7.7 [facility] Neutrophils/100 WBC (Bld) 72.7 % 47-70 [facility] Potassium [Moles/Vol] 3.7 mmol/L 3.5-5.1 [facility] Protein [Mass/Vol] 6.3 g/dL 6.4-8.2 [facility] Sodium [Moles/Vol] 140 mmol/L 136-145 [facility] WBC (Bld) [#/Vol] 6.6 10*3/uL 4.4-11.0 [facility] Blood erythrocytes count (nu mber/volume)Ordered By: Dr. Carrasco on 03-18-2022 RBC (Bld) [#/Vol] 3.19 10*6/uL 4.6-6.2 [facility] Blood hemoglobin measurement (mass/volume)Ordered By: Dr. Carrasco on 03-18-2022 Hemoglobin (Bld) [Mass/Vol] 9.1 g/dL 13.0-16.5 [facility] Blood lymphocytes/100 leukoc ytesOrdered By: Dr. Carrasco on 03-18-2022 Lymphocytes/100 WBC (Bld) 21.5 % 19-41 [facility] Blood monocytes/100 leukocyt esOrdered By: Dr. Carrasco on 03-18-2022 Monocytes/100 WBC (Bld) 5.0 % 0-10 [facility] Blood platelet mean volumeOr dered By: Dr. Carrasco on 03-18-2022 Platelet mean volume (Bld) [Entitic vol] 10.0 fL 6.2-12.0 [facility] Determination of erythrocyte mean corpuscular volume (MCV)Ordered By: Dr. Carrasco on 03-18-2022 MCV (RBC) [Entitic vol] 97.8 fL 80-94 [facility] Hematocrit Auto (Bld) [Volum e fraction]Ordered By: Dr. Carrasco on 03-18-2022 Hematocrit (Bld) [Volume fraction] 31.2 % 40-54 [facility] Laboratory - Chemistry and C hemistry - challengeOrdered By: Dr. Carrasco on 03-18-2022 ALP [Catalytic activity/Vol] 114 U/L 45-117 [facility] ALT [Catalytic activity/Vol] 39 U/L 16-61 [facility] CO2 [Moles/Vol] 33.0 mmol/L 21.0-32.0 [facility] Globulin (S) [Mass/Vol] 3.6 g/dL 2.2-4.2 [facility] Natriuretic peptide B (Bld) [Mass/Vol] 2375.1 pg/mL 0-100 [facility] Urea nitrogen/Creatinine [Mass ratio] 30.7 mg/mg 10-20 [facility] Laboratory - Hematology and Cell countsOrdered By: Dr. Carrasco on 03-18-2022 Erythrocyte distribution width (RBC) [Entitic vol] 53.3 fL 35.1-43.9 [facility] Erythrocyte distribution width (RBC) [Ratio] 14.6 % 11.6-14.6 [facility] Immature granulocytes/100 WBC (Bld) 0.800 % 0.0-0.9 [facility] Comment on above: IG% - Immature Granu locytes (promyelocytes, myelocytes and metamyelocytes) > 1% indicates that a LEFT SHIFT is Present. MCH (RBC) [Entitic mass] 28.5 pg 27.0-32.0 [facility] Nucleated RBC/100 WBC (Bld) [Ratio] 0 % 0-5 [facility] MCHC Auto (RBC) [Mass/Vol]Or dered By: Dr. Carrasco on 03-18-2022 MCHC (RBC) [Mass/Vol] 29.2 g/dL 32-36 [facility] No Panel InformationOrdered By: Dr. Carrasco on 03-18-2022 Estimated GFR (MDRD) Amer 58 mL/min >60 [facility] Comment on above: GFR Calc Estimated GFR (MDRD) Non-Af Amer 48 mL/min >60 [facility] Comment on above: Non- GFR Calc Platelets bldOrdered By: Dr. Carrasco on 03-18-2022 Platelets (Bld) [#/Vol] 131 10*3/uL 150-450 [facility] Serum or plasma albumin jamel urement (mass/volume)Ordered By: Dr. Carrasco on 03-18-2022 Albumin [Mass/Vol] 2.7 g/dL 3.2-5.0 [facility] Serum or plasma albumin/glob ulin mass ratioOrdered By: Dr. Carrasco on 03-18-2022 Albumin/Globulin [Mass ratio] 0.8 {ratio} 0.9-2.4 [facility] Serum or plasma calcium jamel urement (mass/volume)Ordered By: Dr. Carrasco on 03-18-2022 Calcium [Mass/Vol] 8.2 mg/dL 8.5-10.1 [facility] Serum or plasma creatinine m easurement (mass/volume)Ordered By: Dr. Carrasco on 03-18-2022 Creatinine [Mass/Vol] 1.53 mg/dL 0.70-1.30 [facility] Comment on above: The validity of the calculated GFR & GFRAA in patients over 70 years has not been determined. Clinical correlation is essential. Serum or plasma urea nitroge n measurement (mass/volume)Ordered By: Dr. Carrasco on 03-18-2022 Urea nitrogen [Mass/Vol] 47 mg/dL 7-18 [facility] Thin prep Papanicolaou smear with manual screeningOrdered By: Dr. Carrasco on 03-18-2022 Thin prep Papanicolaou smear with manual screening 22 U/L 15-37 [facility] Thin prep Papanicolaou smear with manual screening 9 5-15 [facility] Absolute lymphocyte countOrd ered By: Kasey Arenas on 03-10-2022 Lymphocytes Auto (Unsp spec) [#/Vol] 1.66 10*3/uL 0.83-4.51 [facility] Basophil percentageOrdered B y: Kasey Arenas on 03-10-2022 Basophils/100 WBC (Bld) 0.0 % 0-1 [facility] Bilirubin [Mass/Vol] 0.50 mg/dL 0.20-1.00 [facility] Comment on above: For patients on eltr ombopag therapy, use of Dimension [place] TBIL is not recommended. Chloride [Moles/Vol] 102 mmol/L 98-107 [facility] Eosinophils/100 WBC (Bld) 0.3 % 0-5 [facility] Glucose [Mass/Vol] 133 mg/dL 74-106 [facility] Comment on above: Fasting Glucose resu lt greater than or equal to 126 mg/dL suggests DIABETES MELLITUS per A.D.A. criteria. Neutrophils (Bld) [#/Vol] 4.1 10*3/uL 2.0-7.7 [facility] Neutrophils/100 WBC (Bld) 65.1 % 47-70 [facility] Potassium [Moles/Vol] 4.5 mmol/L 3.5-5.1 [facility] Protein [Mass/Vol] 6.2 g/dL 6.4-8.2 [facility] Sodium [Moles/Vol] 141 mmol/L 136-145 [facility] WBC (Bld) [#/Vol] 6.3 10*3/uL 4.4-11.0 [facility] Blood erythrocytes count (nu mber/volume)Ordered By: Kasey Arenas on 03-10-2022 RBC (Bld) [#/Vol] 3.24 10*6/uL 4.6-6.2 [facility] Blood hemoglobin measurement (mass/volume)Ordered By: Kasey Arenas on 03-10-2022 Hemoglobin (Bld) [Mass/Vol] 9.3 g/dL 13.0-16.5 [facility] Blood lymphocytes/100 leukoc ytesOrdered By: Kasey Arenas on 03-10-2022 Lymphocytes/100 WBC (Bld) 26.3 % 19-41 [facility] Blood monocytes/100 leukocyt esOrdered By: Kasey Arenas on 03-10-2022 Monocytes/100 WBC (Bld) 7.8 % 0-10 [facility] Blood platelet mean volumeOr dered By: Kasey Arenas on 03-10-2022 Platelet mean volume (Bld) [Entitic vol] 9.9 fL 6.2-12.0 [facility] Determination of erythrocyte mean corpuscular volume (MCV)Ordered By: Kasey Arenas on 03-10-2022 MCV (RBC) [Entitic vol] 99.1 fL 80-94 [facility] Hematocrit Auto (Bld) [Volum e fraction]Ordered By: Kasey Arenas on 03-10-2022 Hematocrit (Bld) [Volume fraction] 32.1 % 40-54 [facility] Laboratory - Chemistry and C hemistry - challengeOrdered By: Kasey Arenas on 03-10-2022 ALP [Catalytic activity/Vol] 144 U/L 45-117 [facility] ALT [Catalytic activity/Vol] 44 U/L 16-61 [facility] CO2 [Moles/Vol] 33.0 mmol/L 21.0-32.0 [facility] Globulin (S) [Mass/Vol] 3.4 g/dL 2.2-4.2 [facility] Urea nitrogen/Creatinine [Mass ratio] 31.5 mg/mg 10-20 [facility] Laboratory - Hematology and Cell countsOrdered By: Kasey Arenas on 03-10-2022 Erythrocyte distribution width (RBC) [Entitic vol] 56.9 fL 35.1-43.9 [facility] Erythrocyte distribution width (RBC) [Ratio] 15.4 % 11.6-14.6 [facility] Immature granulocytes/100 WBC (Bld) 0.500 % 0.0-0.9 [facility] Comment on above: IG% - Immature Granu locytes (promyelocytes, myelocytes and metamyelocytes) > 1% indicates that a LEFT SHIFT is Present. MCH (RBC) [Entitic mass] 28.7 pg 27.0-32.0 [facility] Nucleated RBC/100 WBC (Bld) [Ratio] 0 % 0-5 [facility] MCHC Auto (RBC) [Mass/Vol]Or dered By: Kasey Arenas on 03-10-2022 MCHC (RBC) [Mass/Vol] 29.0 g/dL 32-36 [facility] No Panel InformationOrdered By: Kasey Arenas on 03-10-2022 Estimated GFR (MDRD) Amer 61 mL/min >60 [facility] Comment on above: GFR Calc Estimated GFR (MDRD) Non-Af Amer 50 mL/min >60 [facility] Comment on above: Non- GFR Calc Platelets bldOrdered By: Shell Arenas on 03-10-2022 Platelets (Bld) [#/Vol] 109 10*3/uL 150-450 [facility] Serum or plasma albumin jamel urement (mass/volume)Ordered By: Kasey Arenas on 03-10-2022 Albumin [Mass/Vol] 2.8 g/dL 3.2-5.0 [facility] Serum or plasma albumin/glob ulin mass ratioOrdered By: Kasey Arenas on 03-10-2022 Albumin/Globulin [Mass ratio] 0.8 {ratio} 0.9-2.4 [facility] Serum or plasma calcium jamel urement (mass/volume)Ordered By: Kasey Arenas on 03-10-2022 Calcium [Mass/Vol] 8.1 mg/dL 8.5-10.1 [facility] Serum or plasma creatinine m easurement (mass/volume)Ordered By: Kasey Arenas on 03-10-2022 Creatinine [Mass/Vol] 1.46 mg/dL 0.70-1.30 [facility] Comment on above: The validity of the calculated GFR & GFRAA in patients over 70 years has not been determined. Clinical correlation is essential. Serum or plasma urea nitroge n measurement (mass/volume)Ordered By: Kasey Arenas on 03-10-2022 Urea nitrogen [Mass/Vol] 46 mg/dL 7-18 [facility] Thin prep Papanicolaou smear with manual screeningOrdered By: Kasey Arenas on 03-10-2022 Thin prep Papanicolaou smear with manual screening 36 U/L 15-37 [facility] Thin prep Papanicolaou smear with manual screening 6 5-15 [facility] Bacteria identified Respirat ory culture Nom (Unsp spec)Ordered By: Dr. Banks on 03-06-2022 Respiratory Culture Stenotrophomonas maltophilia [facility] Absolute lymphocyte countOrd ered By: Dr. Banks on 03-04-2022 Lymphocytes Auto (Unsp spec) [#/Vol] 0.84 10*3/uL 0.83-4.51 [facility] Basophil percentageOrdered B y: Dr. Banks on 03-04-2022 Basophils/100 WBC (Bld) 0.0 % 0-1 [facility] Chloride [Moles/Vol] 104 mmol/L 98-107 [facility] Eosinophils/100 WBC (Bld) 0.0 % 0-5 [facility] Glucose [Mass/Vol] 223 mg/dL 74-106 [facility] Comment on above: Glucose result great er than or equal to 200 mg/dLsuggests DIABETES MELLITUS per A.D.A. criteria. Neutrophils (Bld) [#/Vol] 3.8 10*3/uL 2.0-7.7 [facility] Neutrophils/100 WBC (Bld) 78.5 % 47-70 [facility] Potassium [Moles/Vol] 5.2 mmol/L 3.5-5.1 [facility] Sodium [Moles/Vol] 139 mmol/L 136-145 [facility] WBC (Bld) [#/Vol] 4.9 10*3/uL 4.4-11.0 [facility] Blood erythrocytes count (nu mber/volume)Ordered By: Dr. Banks on 03-04-2022 RBC (Bld) [#/Vol] 2.99 10*6/uL 4.6-6.2 [facility] Blood hemoglobin measurement (mass/volume)Ordered By: Dr. Banks on 03-04-2022 Hemoglobin (Bld) [Mass/Vol] 8.8 g/dL 13.0-16.5 [facility] Blood lymphocytes/100 leukoc ytesOrdered By: Dr. Banks on 03-04-2022 Lymphocytes/100 WBC (Bld) 17.2 % 19-41 [facility] Blood monocytes/100 leukocyt esOrdered By: Dr. Banks on 03-04-2022 Monocytes/100 WBC (Bld) 3.5 % 0-10 [facility] Blood platelet mean volumeOr dered By: Dr. Banks on 03-04-2022 Platelet mean volume (Bld) [Entitic vol] 10.2 fL 6.2-12.0 [facility] Determination of erythrocyte mean corpuscular volume (MCV)Ordered By: Dr. Banks on 03-04-2022 MCV (RBC) [Entitic vol] 100.7 fL 80-94 [facility] Hematocrit Auto (Bld) [Volum e fraction]Ordered By: Dr. Banks on 03-04-2022 Hematocrit (Bld) [Volume fraction] 30.1 % 40-54 [facility] Laboratory - Chemistry and C hemistry - challengeOrdered By: Dr. Banks on 03-04-2022 CO2 [Moles/Vol] 28.0 mmol/L 21.0-32.0 [facility] Urea nitrogen/Creatinine [Mass ratio] 24.2 mg/mg 10-20 [facility] Laboratory - Hematology and Cell countsOrdered By: Dr. Banks on 01-26-2023 Erythrocyte distribution width (RBC) [Entitic vol] 63.7 fL 35.1-43.9 [facility] Erythrocyte distribution width (RBC) [Ratio] 17.0 % 11.6-14.6 [facility] Immature granulocytes/100 WBC (Bld) 0.800 % 0.0-0.9 [facility] Comment on above: IG% - Immature Granu locytes (promyelocytes, myelocytes and metamyelocytes) > 1% indicates that a LEFT SHIFT is Present. MCH (RBC) [Entitic mass] 29.4 pg 27.0-32.0 [facility] Nucleated RBC/100 WBC (Bld) [Ratio] 0 % 0-5 [facility] MCHC Auto (RBC) [Mass/Vol]Or dered By: Dr. Banks on 03-04-2022 MCHC (RBC) [Mass/Vol] 29.2 g/dL 32-36 [facility] No Panel InformationOrdered By: Dr. Banks on 03-04-2022 Estimated Creatinine Clearance Calc 25.11 ml/min [facility] Estimated GFR (MDRD) Amer 34 mL/min >60 [facility] Comment on above: GFR Calc Estimated GFR (MDRD) Non-Af Amer 28 mL/min >60 [facility] Comment on above: Non- GFR Calc Platelets bldOrdered By: Dr. Banks on 03-04-2022 Platelets (Bld) [#/Vol] 104 10*3/uL 150-450 [facility] Serum or plasma calcium jamel urement (mass/volume)Ordered By: Dr. Banks on 03-04-2022 Calcium [Mass/Vol] 8.1 mg/dL 8.5-10.1 [facility] Serum or plasma creatinine m easurement (mass/volume)Ordered By: Dr. Banks on 03-04-2022 Creatinine [Mass/Vol] 2.40 mg/dL 0.70-1.30 [facility] Comment on above: The validity of the calculated GFR & GFRAA in patients over 70 years has not been determined. Clinical correlation is essential. Serum or plasma urea nitroge n measurement (mass/volume)Ordered By: Dr. Banks on 03-04-2022 Urea nitrogen [Mass/Vol] 58 mg/dL 7-18 [facility] Thin prep Papanicolaou smear with manual screeningOrdered By: Dr. Banks on 03-04-2022 Thin prep Papanicolaou smear with manual screening 7 5-15 [facility] Basophil percentageOrdered B y: Dr. Banks on 03-03-2022 Basophil percentage 4.9 mg/dL 2.5-4.9 [facility] Bilirubin [Mass/Vol] 0.60 mg/dL 0.20-1.00 [facility] Comment on above: For patients on eltr ombopag therapy, use of Dimension [place] TBIL is not recommended. Protein [Mass/Vol] 6.8 g/dL 6.4-8.2 [facility] Blood platelet adequacy dete ction by light microscopyOrdered By: Dr. Banks on 03-03-2022 Platelets LM Ql (Bld) MOD DEC ADEQ [facility] Gram stain for investigation of transfusion reactionOrdered By: Dr. Banks on 03-03-2022 Microscopic observation Gram stain Nom (Unsp spec) [facility] Laboratory - Chemistry and C hemistry - challengeOrdered By: Dr. Banks on 03-03-2022 ALP [Catalytic activity/Vol] 138 U/L 45-117 [facility] ALT [Catalytic activity/Vol] 15 U/L 16-61 [facility] Globulin (S) [Mass/Vol] 4.2 g/dL 2.2-4.2 [facility] Magnesium [Mass/Vol] 1.9 mg/dL 1.6-2.6 [facility] Laboratory - Hematology and Cell countsOrdered By: Dr. Banks on 03-03-2022 Anisocytosis Ql (Bld) 1+ [facility] Macrocytes detectionOrdered By: Dr. Banks on 03-03-2022 Macrocytes Ql (Bld) 1+ [facility] No Panel InformationOrdered By: Dr. Banks on 03-03-2022 Thyroid Stimulating Hormone (TSH) 2.41 uIU/mL 0.358-3.74 [facility] Review by pathologistOrdered By: Dr. Banks on 03-03-2022 Pathologist review Alvin (Unsp spec) [Interp] Reviewed [facility] Comment on above: Previous reported re sult: Suyapa wagner Edited by: TAYLOR on 03/04/22:1039Pancytopenia.Leukopenia Macrocytic anemia.ThrombocytopeniaClinical correlation necessary.Keith Gates M.D. 03/04/22 AMENDED REPORT 03/04/22 1039 PATH REV previously reported as: June Serum or plasma albumin jamel urement (mass/volume)Ordered By: Dr. Banks on 03-03-2022 Albumin [Mass/Vol] 2.6 g/dL 3.2-5.0 [facility] Serum or plasma albumin/glob ulin mass ratioOrdered By: Dr. Banks on 03-03-2022 Albumin/Globulin [Mass ratio] 0.6 {ratio} 0.9-2.4 [facility] Thin prep Papanicolaou smear with manual screeningOrdered By: Dr. Banks on 03-03-2022 Thin prep Papanicolaou smear with manual screening 18 U/L 15-37 [facility] Urine Legionella pneumophila antigen detectionOrdered By: Dr. Banks on 03-03-2022 L. pneumophila Ag Ql (U) [facility] Absolute lymphocyte countOrd ered By: Dr. Garland on 03-02-2022 Lymphocytes Auto (Unsp spec) [#/Vol] 1.47 10*3/uL 0.83-4.51 [facility] Basophil percentageOrdered B y: Dr. Garland on 03-02-2022 Basophils/100 WBC (Bld) 0.0 % 0-1 [facility] Chloride [Moles/Vol] 106 mmol/L 98-107 [facility] Eosinophils/100 WBC (Bld) 0.2 % 0-5 [facility] Glucose [Mass/Vol] 112 mg/dL 74-106 [facility] Comment on above: Fasting Glucose resu lt from 100 to 125 mg/dL suggests IMPAIRED HOMEOSTASIS per A.D.A. criteria. Neutrophils (Bld) [#/Vol] 3.6 10*3/uL 2.0-7.7 [facility] Neutrophils/100 WBC (Bld) 66.7 % 47-70 [facility] Potassium [Moles/Vol] 4.5 mmol/L 3.5-5.1 [facility] Sodium [Moles/Vol] 141 mmol/L 136-145 [facility] WBC (Bld) [#/Vol] 5.3 10*3/uL 4.4-11.0 [facility] Blood erythrocytes count (nu mber/volume)Ordered By: Dr. Garland on 03-02-2022 RBC (Bld) [#/Vol] 4.06 10*6/uL 4.6-6.2 [facility] Blood hemoglobin measurement (mass/volume)Ordered By: Dr. Garland on 03-02-2022 Hemoglobin (Bld) [Mass/Vol] 12.0 g/dL 13.0-16.5 [facility] Blood lymphocytes/100 leukoc ytesOrdered By: Dr. Garland on 03-02-2022 Lymphocytes/100 WBC (Bld) 27.6 % 19-41 [facility] Blood monocytes/100 leukocyt esOrdered By: Dr. Garland on 03-02-2022 Monocytes/100 WBC (Bld) 5.1 % 0-10 [facility] Blood platelet mean volumeOr dered By: Dr. Garland on 03-02-2022 Platelet mean volume (Bld) [Entitic vol] 10.3 fL 6.2-12.0 [facility] Determination of erythrocyte mean corpuscular volume (MCV)Ordered By: Dr. Garland on 03-02-2022 MCV (RBC) [Entitic vol] 100.2 fL 80-94 [facility] Hematocrit Auto (Bld) [Volum e fraction]Ordered By: Dr. Garland on 03-02-2022 Hematocrit (Bld) [Volume fraction] 40.7 % 40-54 [facility] Influenza virus A and B and SARS-CoV-2 (COVID-19) Ag panel - Upper respiratory specimOrdered By: Dr. Garland on 03-02-2022 SARS-CoV-2 (COVID-19) RNA AMBER+probe Ql (Resp) [facility] Laboratory - Chemistry and C hemistry - challengeOrdered By: Dr. Garland on 03-02-2022 CO2 [Moles/Vol] 29.0 mmol/L 21.0-32.0 [facility] Urea nitrogen/Creatinine [Mass ratio] 19.6 mg/mg 10-20 [facility] Laboratory - Hematology and Cell countsOrdered By: Dr. Garland on 03-02-2022 Anisocytosis Ql (Bld) 1+ [facility] Erythrocyte distribution width (RBC) [Entitic vol] 65.8 fL 35.1-43.9 [facility] Erythrocyte distribution width (RBC) [Ratio] 17.5 % 11.6-14.6 [facility] Immature granulocytes/100 WBC (Bld) 0.400 % 0.0-0.9 [facility] Comment on above: IG% - Immature Granu locytes (promyelocytes, myelocytes and metamyelocytes) > 1% indicates that a LEFT SHIFT is Present. MCH (RBC) [Entitic mass] 29.6 pg 27.0-32.0 [facility] Nucleated RBC/100 WBC (Bld) [Ratio] 0 % 0-5 [facility] MCHC Auto (RBC) [Mass/Vol]Or dered By: Dr. Garland on 03-02-2022 MCHC (RBC) [Mass/Vol] 29.5 g/dL 32-36 [facility] No Panel InformationOrdered By: Dr. Banks on 03-02-2022 Methicillin-Resist S.aureus DNA PCR Negative Negative [facility] No Panel InformationOrdered By: Dr. Garland on 03-02-2022 Estimated Creatinine Clearance Calc 26.90 ml/min [facility] Estimated GFR (MDRD) Amer 37 mL/min >60 [facility] Comment on above: GFR Calc Estimated GFR (MDRD) Non-Af Amer 31 mL/min >60 [facility] Comment on above: Non- GFR Calc Troponin I High Sensitivity 56 pg/mL 3.0-78.0 [facility] Comment on above: Please Note: New Mitali t Units and Gender Specific Reference Ranges. For more information see Policy Stat Procedure [place] High Sensitivity Troponin (TNIH) and attachments. Platelets bldOrdered By: Dr. Garland on 03-02-2022 Platelets (Bld) [#/Vol] 117 10*3/uL 150-450 [facility] Serum or plasma calcium jamel urement (mass/volume)Ordered By: Dr. Garland on 03-02-2022 Calcium [Mass/Vol] 8.5 mg/dL 8.5-10.1 [facility] Serum or plasma creatinine m easurement (mass/volume)Ordered By: Dr. Garland on 03-02-2022 Creatinine [Mass/Vol] 2.24 mg/dL 0.70-1.30 [facility] Comment on above: The validity of the calculated GFR & GFRAA in patients over 70 years has not been determined. Clinical correlation is essential. Serum or plasma urea nitroge n measurement (mass/volume)Ordered By: Dr. Garland on 03-02-2022 Urea nitrogen [Mass/Vol] 44 mg/dL 7-18 [facility] Thin prep Papanicolaou smear with manual screeningOrdered By: Dr. Garland on 03-02-2022 Thin prep Papanicolaou smear with manual screening 6 5-15 [facility] Basophil percentageOrdered B y: Dr. Carrasco on 02-25-2022 Chloride [Moles/Vol] 107 mmol/L 98-107 [facility] Glucose [Mass/Vol] 219 mg/dL 74-106 [facility] Comment on above: Glucose result great er than or equal to 200 mg/dLsuggests DIABETES MELLITUS per A.D.A. criteria. Potassium [Moles/Vol] 4.2 mmol/L 3.5-5.1 [facility] Sodium [Moles/Vol] 143 mmol/L 136-145 [facility] WBC (Bld) [#/Vol] 5.0 10*3/uL 4.4-11.0 [facility] Blood erythrocytes count (nu mber/volume)Ordered By: Dr. Carrasco on 02-25-2022 RBC (Bld) [#/Vol] 3.27 10*6/uL 4.6-6.2 [facility] Blood hemoglobin measurement (mass/volume)Ordered By: Dr. Carrasco on 02-25-2022 Hemoglobin (Bld) [Mass/Vol] 9.9 g/dL 13.0-16.5 [facility] Blood manual differential co mment interpretation (narrative result)Ordered By: Dr. Carrasco on 02-25-2022 Manual differential comment Alvin (Bld) [Interp] See comment [facility] Comment on above: THROMBOCYTOPENIA MOD . DECREASEDANISOCYTOSIS RARE Blood platelet mean volumeOr dered By: Dr. Carrasco on 02-25-2022 Platelet mean volume (Bld) [Entitic vol] 10.3 fL 6.2-12.0 [facility] Determination of erythrocyte mean corpuscular volume (MCV)Ordered By: Dr. Carrasco on 02-25-2022 MCV (RBC) [Entitic vol] 103.7 fL 80-94 [facility] Hematocrit Auto (Bld) [Volum e fraction]Ordered By: Dr. Carrasco on 02-25-2022 Hematocrit (Bld) [Volume fraction] 33.9 % 40-54 [facility] Hemoglobin in reticulocytes (mass per reticulocyte)Ordered By: Dr. Carrasco on 02-25-2022 Hemoglobin (Reticulocytes) [Entitic mass] 27.9 pg 30-35 [facility] Iron measurement (mass/mass) Ordered By: Dr. Carrasco on 02-25-2022 Iron (Unsp spec) [Mass/Mass] 37 ug/dL 65-175 [facility] Laboratory - Chemistry and C hemistry - challengeOrdered By: Dr. Carrasco on 02-25-2022 CO2 [Moles/Vol] 29.0 mmol/L 21.0-32.0 [facility] Urea nitrogen/Creatinine [Mass ratio] 20.0 mg/mg 10-20 [facility] Laboratory - Hematology and Cell countsOrdered By: Dr. Carrasco on 02-25-2022 Erythrocyte distribution width (RBC) [Entitic vol] 72.1 fL 35.1-43.9 [facility] Erythrocyte distribution width (RBC) [Ratio] 19.0 % 11.6-14.6 [facility] MCH (RBC) [Entitic mass] 30.3 pg 27.0-32.0 [facility] MCHC Auto (RBC) [Mass/Vol]Or dered By: Dr. Carrasco on 02-25-2022 MCHC (RBC) [Mass/Vol] 29.2 g/dL 32-36 [facility] No Panel InformationOrdered By: Dr. Carrasco on 02-25-2022 Estimated GFR (MDRD) Amer 33 mL/min >60 [facility] Comment on above: GFR Calc Estimated GFR (MDRD) Non-Af Amer 27 mL/min >60 [facility] Comment on above: Non- GFR Calc Immature Platelet Fraction 5.5 % 1.0-7.9 [facility] Comment on above: Low PLT + Low IPF kinney ggest a bone marrow production disorderLow PLT + high IPF suggests peripheral destruction(e.g.ITP, TTP, HIT, DIC, autoimmune) or bone marrow recoveryTrending of serial IPF measurements is recommended when evaluating for bone marrow responesValue above normal range indicates an increase in RBC cellular response from bone marrow. Immature Reticulocyte Fraction 18.90 % 3.00-15.90 [facility] Reticulocyte Count 4.10 % 0.5-1.5 [facility] Total Iron Binding Capacity 280 ug/dL 250-450 [facility] Platelets bldOrdered By: Dr. Carrasco on 02-25-2022 Platelets (Bld) [#/Vol] 86 10*3/uL 150-450 [facility] Serum or plasma calcium jamel urement (mass/volume)Ordered By: Dr. Carrasco on 02-25-2022 Calcium [Mass/Vol] 8.2 mg/dL 8.5-10.1 [facility] Serum or plasma creatinine m easurement (mass/volume)Ordered By: Dr. Carrasco on 02-25-2022 Creatinine [Mass/Vol] 2.50 mg/dL 0.70-1.30 [facility] Comment on above: The validity of the calculated GFR & GFRAA in patients over 70 years has not been determined. Clinical correlation is essential. Serum or plasma ferritin ahmet surement (mass/volume)Ordered By: Dr. Carrasco on 02-25-2022 Ferritin [Mass/Vol] 232 ng/mL 26-388 [facility] Serum or plasma urea nitroge n measurement (mass/volume)Ordered By: Dr. Carrasco on 02-25-2022 Urea nitrogen [Mass/Vol] 50 mg/dL 7-18 [facility] Thin prep Papanicolaou smear with manual screeningOrdered By: Dr. Carrasco on 02-25-2022 Thin prep Papanicolaou smear with manual screening 7 5-15 [facility] Culture, urineOrdered By: Dr Truong Carrasco on 01-28-2022 Bacteria identified Cx Nom (U) Culture exhibits no growth. [facility] Basophil percentageOrdered B y: Dr. Carrasco on 01-25-2022 Basophil percentage 0-5 SEEN /hpf 0-5 [facility] Bilirubin Test strip Ql (U)O rdered By: Dr. Carrasco on 01-25-2022 Bilirubin Ql (U) Negative Negative [facility] Ketones Test strip Ql (U)Ord ered By: Dr. Carrasco on 01-25-2022 Ketones Ql (U) Negative Negative [facility] Mucus LM Ql (Urine sed)Order ed By: Dr. Carrasco on 01-25-2022 Mucus Ql (Urine sed) 0 SEEN /hpf [facility] Nitrite Test strip Ql (U)Ord ered By: Dr. Carrasco on 01-25-2022 Nitrite Ql (U) Negative Negative [facility] Protein Test strip Ql (U)Ord ered By: Dr. Carrasco on 01-25-2022 Protein Ql (U) 30 mg/dl Negative [facility] Squamous epithelial cells de tection in urine sediment by light microscopyOrdered By: Dr. Carrasco on 01-25-2022 Epithelial cells.squamous LM Ql (Urine sed) 0 SEEN /hpf 0-5 [facility] Urine blood detectionOrdered By: Dr. Carrasco on 01-25-2022 RBC Ql (U) 250 /ul Negative [facility] RBC Ql (U) 10-25 SEEN /hpf 0-5 [facility] Urine clarityOrdered By: Dr. Carrasco on 01-25-2022 Clarity (U) Clear Clear [facility] Urine color determinationOrd ered By: Dr. Carrasco on 01-25-2022 Color (U) Yellow Yellow [facility] Urine glucose detectionOrder ed By: Dr. Carrasco on 01-25-2022 Glucose Ql (U) Normal mg/dl Normal [facility] Urine leukocyte esterase det ection by dipstickOrdered By: Dr. Carrasco on 01-25-2022 Leukocyte esterase Test strip Ql (U) Negative Negative [facility] Urine pHOrdered By: Dr. Connie leon on 01-25-2022 pH (U) 5.0 [pH] 5.0 - 8.0 [facility] Urine sediment bacteria coun t by microscopy (number/high power field)Ordered By: Dr. Carrasco on 01-25-2022 Bacteria LM.HPF (Urine sed) [#/Area] 0 /[HPF] None Seen [facility] Urine specific gravity measu rementOrdered By: Dr. Carrasco on 01-25-2022 Specific gravity (U) [Rel density] 1.015 1.002-1.030 [facility] Urobilinogen Auto test strip Ql (U)Ordered By: Dr. Carrasco on 01-25-2022 Urobilinogen Ql (U) Normal mg/dl Normal [facility] Basophil percentageOrdered B y: Sherry Ahn on 01-21-2022 Bilirubin [Mass/Vol] 0.50 mg/dL 0.20-1.00 [facility] Comment on above: For patients on eltr ombopag therapy, use of Dimension [place] TBIL is not recommended. Chloride [Moles/Vol] 103 mmol/L 98-107 [facility] Glucose [Mass/Vol] 111 mg/dL 74-106 [facility] Comment on above: Fasting Glucose resu lt from 100 to 125 mg/dL suggests IMPAIRED HOMEOSTASIS per A.D.A. criteria. Potassium [Moles/Vol] 3.7 mmol/L 3.5-5.1 [facility] Protein [Mass/Vol] 6.8 g/dL 6.4-8.2 [facility] Sodium [Moles/Vol] 140 mmol/L 136-145 [facility] Laboratory - Chemistry and C hemistry - challengeOrdered By: Sherry Ahn on 01-21-2022 ALP [Catalytic activity/Vol] 155 U/L 45-117 [facility] ALT [Catalytic activity/Vol] 18 U/L 16-61 [facility] CO2 [Moles/Vol] 29.0 mmol/L 21.0-32.0 [facility] Globulin (S) [Mass/Vol] 4.3 g/dL 2.2-4.2 [facility] Urea nitrogen/Creatinine [Mass ratio] 12.2 mg/mg 10-20 [facility] No Panel InformationOrdered By: Sherry Ahn on 01-21-2022 Estimated GFR (MDRD) Amer 27 mL/min >60 [facility] Comment on above: GFR Calc Estimated GFR (MDRD) Non-Af Amer 23 mL/min >60 [facility] Comment on above: Non- GFR Calc Serum or plasma albumin jamel urement (mass/volume)Ordered By: Sherry Ahn on 01-21-2022 Albumin [Mass/Vol] 2.5 g/dL 3.2-5.0 [facility] Serum or plasma albumin/glob ulin mass ratioOrdered By: Sherry Ahn on 01-21-2022 Albumin/Globulin [Mass ratio] 0.6 {ratio} 0.9-2.4 [facility] Serum or plasma calcium jamel urement (mass/volume)Ordered By: Sherry Ahn on 01-21-2022 Calcium [Mass/Vol] 8.2 mg/dL 8.5-10.1 [facility] Serum or plasma creatinine m easurement (mass/volume)Ordered By: Sherry Ahn on 01-21-2022 Creatinine [Mass/Vol] 2.94 mg/dL 0.70-1.30 [facility] Comment on above: The validity of the calculated GFR & GFRAA in patients over 70 years has not been determined. Clinical correlation is essential. Serum or plasma urea nitroge n measurement (mass/volume)Ordered By: Sherry Ahn on 01-21-2022 Urea nitrogen [Mass/Vol] 36 mg/dL 7-18 [facility] Thin prep Papanicolaou smear with manual screeningOrdered By: Sherry Ahn on 01-21-2022 Thin prep Papanicolaou smear with manual screening 22 U/L 15-37 [facility] Thin prep Papanicolaou smear with manual screening 8 5-15 [facility] Whole blood hemoglobin A1c/t otal hemoglobin ratio (mass fraction)Ordered By: Sherry Ahn on 01-21-2022 HbA1c (Bld) [Mass fraction] 5.9 % 3.8-5.6 [facility] Comment on above: Normal < 5.7 % Predi abetic 5.7 - 6.4 % Diabetic >or= 6.5 % Please note range changes. Absolute lymphocyte countOrd ered By: Dr. Carrasco on 01-06-2022 Lymphocytes Auto (Unsp spec) [#/Vol] 2.01 10*3/uL 0.83-4.51 [facility] Basophil percentageOrdered B y: Dr. Carrasco on 01-06-2022 Basophils/100 WBC (Bld) 0.2 % 0-1 [facility] Eosinophils/100 WBC (Bld) 0.2 % 0-5 [facility] Neutrophils (Bld) [#/Vol] 4.1 10*3/uL 2.0-7.7 [facility] Neutrophils/100 WBC (Bld) 61.0 % 47-70 [facility] WBC (Bld) [#/Vol] 6.6 10*3/uL 4.4-11.0 [facility] Basophil percentageOrdered B y: Tc Subramanian on 01-06-2022 Chloride [Moles/Vol] 101 mmol/L 98-107 [facility] Glucose [Mass/Vol] 110 mg/dL 74-106 [facility] Comment on above: Fasting Glucose resu lt from 100 to 125 mg/dL suggests IMPAIRED HOMEOSTASIS per A.D.A. criteria. Potassium [Moles/Vol] 5.0 mmol/L 3.5-5.1 [facility] Sodium [Moles/Vol] 135 mmol/L 136-145 [facility] Blood erythrocytes count (nu mber/volume)Ordered By: Dr. Carrasco on 01-06-2022 RBC (Bld) [#/Vol] 3.62 10*6/uL 4.6-6.2 [facility] Blood hemoglobin measurement (mass/volume)Ordered By: Dr. Carrasco on 01-06-2022 Hemoglobin (Bld) [Mass/Vol] 10.3 g/dL 13.0-16.5 [facility] Blood lymphocytes/100 leukoc ytesOrdered By: Dr. Carrasco on 01-06-2022 Lymphocytes/100 WBC (Bld) 30.4 % 19-41 [facility] Blood monocytes/100 leukocyt esOrdered By: Dr. Carrasco on 01-06-2022 Monocytes/100 WBC (Bld) 7.7 % 0-10 [facility] Blood platelet mean volumeOr dered By: Dr. Carrasco on 01-06-2022 Platelet mean volume (Bld) [Entitic vol] 9.1 fL 6.2-12.0 [facility] Determination of erythrocyte mean corpuscular volume (MCV)Ordered By: Dr. Carrasco on 01-06-2022 MCV (RBC) [Entitic vol] 90.6 fL 80-94 [facility] Hematocrit Auto (Bld) [Volum e fraction]Ordered By: Dr. Carrasco on 01-06-2022 Hematocrit (Bld) [Volume fraction] 32.8 % 40-54 [facility] Laboratory - Chemistry and C hemistry - challengeOrdered By: cT Subramanian on 01-06-2022 CO2 [Moles/Vol] 28.0 mmol/L 21.0-32.0 [facility] Urea nitrogen/Creatinine [Mass ratio] 17.6 mg/mg 10-20 [facility] Laboratory - Hematology and Cell countsOrdered By: Dr. Carrasco on 01-06-2022 Erythrocyte distribution width (RBC) [Entitic vol] 47.0 fL 35.1-43.9 [facility] Erythrocyte distribution width (RBC) [Ratio] 14.4 % 11.6-14.6 [facility] Immature granulocytes/100 WBC (Bld) 0.500 % 0.0-0.9 [facility] Comment on above: IG% - Immature Granu locytes (promyelocytes, myelocytes and metamyelocytes) > 1% indicates that a LEFT SHIFT is Present. MCH (RBC) [Entitic mass] 28.5 pg 27.0-32.0 [facility] Nucleated RBC/100 WBC (Bld) [Ratio] 0.6 % 0-5 [facility] MCHC Auto (RBC) [Mass/Vol]Or dered By: Dr. Carrasco on 01-06-2022 MCHC (RBC) [Mass/Vol] 31.4 g/dL 32-36 [facility] No Panel InformationOrdered By: Tc Subramanian on 01-06-2022 Estimated GFR (MDRD) Amer 32 mL/min >60 [facility] Comment on above: GFR Calc Estimated GFR (MDRD) Non-Af Amer 26 mL/min >60 [facility] Comment on above: Non- GFR Calc Platelets bldOrdered By: Dr. Carrasco on 01-06-2022 Platelets (Bld) [#/Vol] 187 10*3/uL 150-450 [facility] Serum or plasma calcium jamel urement (mass/volume)Ordered By: Tc Subramanian on 01-06-2022 Calcium [Mass/Vol] 8.3 mg/dL 8.5-10.1 [facility] Serum or plasma creatinine m easurement (mass/volume)Ordered By: Tc Subramanian on 01-06-2022 Creatinine [Mass/Vol] 2.56 mg/dL 0.70-1.30 [facility] Comment on above: The validity of the calculated GFR & GFRAA in patients over 70 years has not been determined. Clinical correlation is essential. Serum or plasma urea nitroge n measurement (mass/volume)Ordered By: Tc Subramanian on 01-06-2022 Urea nitrogen [Mass/Vol] 45 mg/dL 7-18 [facility] Thin prep Papanicolaou smear with manual screeningOrdered By: Tc Subramanian on 01-06-2022 Thin prep Papanicolaou smear with manual screening 6 5-15 [facility] Absolute lymphocyte countOrd ered By: Dr. Asencio on 12-28-2021 Lymphocytes Auto (Unsp spec) [#/Vol] 2.01 10*3/uL 0.83-4.51 [facility] Basophil percentageOrdered B y: Dr. Asencio on 12-28-2021 Basophil percentage 0-5 SEEN /hpf 0-5 [facility] Basophils/100 WBC (Bld) 0.2 % 0-1 [facility] Bilirubin [Mass/Vol] 0.40 mg/dL 0.20-1.00 [facility] Comment on above: For patients on eltr ombopag therapy, use of Dimension [place] TBIL is not recommended. Chloride [Moles/Vol] 101 mmol/L 98-107 [facility] Eosinophils/100 WBC (Bld) 0.0 % 0-5 [facility] Glucose [Mass/Vol] 166 mg/dL 74-106 [facility] Comment on above: Fasting Glucose resu lt greater than or equal to 126 mg/dL suggests DIABETES MELLITUS per A.D.A. criteria. Neutrophils (Bld) [#/Vol] 3.4 10*3/uL 2.0-7.7 [facility] Neutrophils/100 WBC (Bld) 59.2 % 47-70 [facility] Potassium [Moles/Vol] 4.4 mmol/L 3.5-5.1 [facility] Protein [Mass/Vol] 7.3 g/dL 6.4-8.2 [facility] Sodium [Moles/Vol] 134 mmol/L 136-145 [facility] WBC (Bld) [#/Vol] 5.7 10*3/uL 4.4-11.0 [facility] Bilirubin Test strip Ql (U)O rdered By: Dr. Asencio on 12-28-2021 Bilirubin Ql (U) Negative Negative [facility] Blood erythrocytes count (nu mber/volume)Ordered By: Dr. Asencio on 12-28-2021 RBC (Bld) [#/Vol] 3.95 10*6/uL 4.6-6.2 [facility] Blood hemoglobin measurement (mass/volume)Ordered By: Dr. Asencio on 12-28-2021 Hemoglobin (Bld) [Mass/Vol] 11.1 g/dL 13.0-16.5 [facility] Blood lymphocytes/100 leukoc ytesOrdered By: Dr. Asencio on 12-28-2021 Lymphocytes/100 WBC (Bld) 35.1 % 19-41 [facility] Blood monocytes/100 leukocyt esOrdered By: Dr. Asencio on 12-28-2021 Monocytes/100 WBC (Bld) 5.2 % 0-10 [facility] Blood platelet mean volumeOr dered By: Dr. Asencio on 12-28-2021 Platelet mean volume (Bld) [Entitic vol] 9.8 fL 6.2-12.0 [facility] Determination of erythrocyte mean corpuscular volume (MCV)Ordered By: Dr. Asencio on 12-28-2021 MCV (RBC) [Entitic vol] 86.3 fL 80-94 [facility] Hematocrit Auto (Bld) [Volum e fraction]Ordered By: Dr. Asencio on 12-28-2021 Hematocrit (Bld) [Volume fraction] 34.1 % 40-54 [facility] Ketones Test strip Ql (U)Ord ered By: Dr. Asencio on 12-28-2021 Ketones Ql (U) Negative Negative [facility] Laboratory - Chemistry and C hemistry - challengeOrdered By: Dr. Asencio on 12-28-2021 ALP [Catalytic activity/Vol] 73 U/L 45-117 [facility] ALT [Catalytic activity/Vol] 18 U/L 16-61 [facility] CO2 [Moles/Vol] 25.0 mmol/L 21.0-32.0 [facility] Globulin (S) [Mass/Vol] 4.5 g/dL 2.2-4.2 [facility] Urea nitrogen/Creatinine [Mass ratio] 12.8 mg/mg 10-20 [facility] Laboratory - Hematology and Cell countsOrdered By: Dr. Asencio on 12-28-2021 Erythrocyte distribution width (RBC) [Entitic vol] 43.4 fL 35.1-43.9 [facility] Erythrocyte distribution width (RBC) [Ratio] 13.7 % 11.6-14.6 [facility] Immature granulocytes/100 WBC (Bld) 0.300 % 0.0-0.9 [facility] Comment on above: IG% - Immature Granu locytes (promyelocytes, myelocytes and metamyelocytes) > 1% indicates that a LEFT SHIFT is Present. MCH (RBC) [Entitic mass] 28.1 pg 27.0-32.0 [facility] Nucleated RBC/100 WBC (Bld) [Ratio] 0 % 0-5 [facility] MCHC Auto (RBC) [Mass/Vol]Or dered By: Dr. Asencio on 12-28-2021 MCHC (RBC) [Mass/Vol] 32.6 g/dL 32-36 [facility] Mucus LM Ql (Urine sed)Order ed By: Dr. Asencio on 12-28-2021 Mucus Ql (Urine sed) 0 SEEN /hpf [facility] Nitrite Test strip Ql (U)Ord ered By: Dr. Asencio on 12-28-2021 Nitrite Ql (U) Negative Negative [facility] No Panel InformationOrdered By: Dr. Asencio on 12-28-2021 Estimated Creatinine Clearance Calc 27.92 ml/min [facility] Estimated GFR (MDRD) Amer 38 mL/min >60 [facility] Comment on above: GFR Calc Estimated GFR (MDRD) Non-Af Amer 32 mL/min >60 [facility] Comment on above: Non- GFR Calc Platelets bldOrdered By: Dr. Asencio on 12-28-2021 Platelets (Bld) [#/Vol] 109 10*3/uL 150-450 [facility] Protein Test strip Ql (U)Ord ered By: Dr. Asencio on 12-28-2021 Protein Ql (U) 100 mg/dl Negative [facility] Serum or plasma albumin jamel urement (mass/volume)Ordered By: Dr. Asencio on 12-28-2021 Albumin [Mass/Vol] 2.8 g/dL 3.2-5.0 [facility] Serum or plasma albumin/glob ulin mass ratioOrdered By: Dr. Asencio on 12-28-2021 Albumin/Globulin [Mass ratio] 0.6 {ratio} 0.9-2.4 [facility] Serum or plasma calcium jamel urement (mass/volume)Ordered By: Dr. Asencio on 12-28-2021 Calcium [Mass/Vol] 8.8 mg/dL 8.5-10.1 [facility] Serum or plasma creatinine m easurement (mass/volume)Ordered By: Dr. Asencio on 12-28-2021 Creatinine [Mass/Vol] 2.19 mg/dL 0.70-1.30 [facility] Comment on above: The validity of the calculated GFR & GFRAA in patients over 70 years has not been determined. Clinical correlation is essential. Serum or plasma urea nitroge n measurement (mass/volume)Ordered By: Dr. Asencio on 12-28-2021 Urea nitrogen [Mass/Vol] 28 mg/dL 7-18 [facility] Squamous epithelial cells de tection in urine sediment by light microscopyOrdered By: Dr. Asencio on 12-28-2021 Epithelial cells.squamous LM Ql (Urine sed) 0 SEEN /hpf 0-5 [facility] Thin prep Papanicolaou smear with manual screeningOrdered By: Dr. Asencio on 12-28-2021 Thin prep Papanicolaou smear with manual screening 21 U/L 15-37 [facility] Thin prep Papanicolaou smear with manual screening 8 5-15 [facility] Urine blood detectionOrdered By: Dr. Asencio on 12-28-2021 RBC Ql (U) 250 /ul Negative [facility] RBC Ql (U) 25-50 SEEN /hpf 0-5 [facility] Urine clarityOrdered By: Dr. Asencio on 12-28-2021 Clarity (U) Cloudy Clear [facility] Urine color determinationOrd ered By: Dr. Asencio on 12-28-2021 Color (U) Red Yellow [facility] Urine glucose detectionOrder ed By: Dr. Asencio on 12-28-2021 Glucose Ql (U) 50 mg/dl Normal [facility] Urine leukocyte esterase det ection by dipstickOrdered By: Dr. Asencio on 12-28-2021 Leukocyte esterase Test strip Ql (U) 25 /ul Negative [facility] Urine pHOrdered By: Dr. Anastasia forbes on 12-28-2021 pH (U) 6.5 [pH] 5.0 - 8.0 [facility] Urine sediment bacteria coun t by microscopy (number/high power field)Ordered By: Dr. Asencio on 12-28-2021 Bacteria LM.HPF (Urine sed) [#/Area] 0 /[HPF] None Seen [facility] Urine specific gravity measu rementOrdered By: Dr. Asencio on 12-28-2021 Specific gravity (U) [Rel density] 1.015 1.002-1.030 [facility] Urobilinogen Auto test strip Ql (U)Ordered By: Dr. Asencio on 12-28-2021 Urobilinogen Ql (U) Normal mg/dl Normal [facility] Absolute lymphocyte countOrd ered By: Dr. Carrasco on 12-22-2021 Lymphocytes Auto (Unsp spec) [#/Vol] 3.71 10*3/uL 0.83-4.51 [facility] Basophil percentageOrdered B y: Dr. Carrasco on 12-22-2021 Basophils/100 WBC (Bld) 0.3 % 0-1 [facility] Eosinophils/100 WBC (Bld) 0.2 % 0-5 [facility] Neutrophils (Bld) [#/Vol] 2.2 10*3/uL 2.0-7.7 [facility] Neutrophils/100 WBC (Bld) 34.6 % 47-70 [facility] WBC (Bld) [#/Vol] 6.4 10*3/uL 4.4-11.0 [facility] Blood erythrocytes count (nu mber/volume)Ordered By: Dr. Carrasco on 12-22-2021 RBC (Bld) [#/Vol] 4.25 10*6/uL 4.6-6.2 [facility] Blood hemoglobin measurement (mass/volume)Ordered By: Dr. Carrasco on 12-22-2021 Hemoglobin (Bld) [Mass/Vol] 12.3 g/dL 13.0-16.5 [facility] Blood lymphocytes/100 leukoc ytesOrdered By: Dr. Carrasco on 12-22-2021 Lymphocytes/100 WBC (Bld) 58.1 % 19-41 [facility] Blood monocytes/100 leukocyt esOrdered By: Dr. Carrasco on 12-22-2021 Monocytes/100 WBC (Bld) 6.6 % 0-10 [facility] Blood platelet mean volumeOr dered By: Dr. Carrasco on 12-22-2021 Platelet mean volume (Bld) [Entitic vol] 9.2 fL 6.2-12.0 [facility] Determination of erythrocyte mean corpuscular volume (MCV)Ordered By: Dr. Carrasco on 12-22-2021 MCV (RBC) [Entitic vol] 90.1 fL 80-94 [facility] Hematocrit Auto (Bld) [Volum e fraction]Ordered By: Dr. Carrasco on 12-22-2021 Hematocrit (Bld) [Volume fraction] 38.3 % 40-54 [facility] Laboratory - Hematology and Cell countsOrdered By: Dr. Carrasco on 12-22-2021 Erythrocyte distribution width (RBC) [Entitic vol] 47.0 fL 35.1-43.9 [facility] Erythrocyte distribution width (RBC) [Ratio] 14.2 % 11.6-14.6 [facility] Immature granulocytes/100 WBC (Bld) 0.200 % 0.0-0.9 [facility] Comment on above: IG% - Immature Granu locytes (promyelocytes, myelocytes and metamyelocytes) > 1% indicates that a LEFT SHIFT is Present. MCH (RBC) [Entitic mass] 28.9 pg 27.0-32.0 [facility] Nucleated RBC/100 WBC (Bld) [Ratio] 0 % 0-5 [facility] MCHC Auto (RBC) [Mass/Vol]Or dered By: Dr. Carrasco on 12-22-2021 MCHC (RBC) [Mass/Vol] 32.1 g/dL 32-36 [facility] Platelets bldOrdered By: Dr. Carrasco on 12-22-2021 Platelets (Bld) [#/Vol] 137 10*3/uL 150-450 [facility] Basophil percentageon 2021 Bilirubin [Mass/Vol] 0.40 mg/dL 0.20-1.00 [facility] Work Phone: Comment on above: For patients on eltr ombopag therapy, use of Dimension [place] TBIL is not recommended. Chloride [Moles/Vol] 99 mmol/L 98-107 [facility] Work Phone: Glucose [Mass/Vol] 172 mg/dL 74-106 [facility] Work Phone: Comment on above: Fasting Glucose resu lt greater than or equal to 126 mg/dL suggests DIABETES MELLITUS per A.D.A. criteria. Potassium [Moles/Vol] 4.5 mmol/L 3.5-5.1 [facility] Work Phone: Protein [Mass/Vol] 7.2 g/dL 6.4-8.2 [facility] Work Phone: Sodium [Moles/Vol] 133 mmol/L 136-145 [facility] Work Phone: WBC (Bld) [#/Vol] 6.3 10*3/uL 4.4-11.0 [facility] Work Phone: Blood erythrocytes count (nu mber/volume)on 09-23-2021 RBC (Bld) [#/Vol] 4.97 10*6/uL 4.6-6.2 [facility] Work Phone: Blood hemoglobin measurement (mass/volume)on 09-23-2021 Hemoglobin (Bld) [Mass/Vol] 15.3 g/dL 13.0-16.5 [facility] Work Phone: Blood platelet mean volumeon 09-23-2021 Platelet mean volume (Bld) [Entitic vol] 8.8 fL 6.2-12.0 [facility] Work Phone: Determination of erythrocyte mean corpuscular volume (MCV)on 09-23-2021 MCV (RBC) [Entitic vol] 93.2 fL 80-94 [facility] Work Phone: Hematocrit Auto (Bld) [Volum e fraction]on 09-23-2021 Hematocrit (Bld) [Volume fraction] 46.3 % 40-54 [facility] Work Phone: Laboratory - Chemistry and C hemistry - challengeon 09-23-2021 ALP [Catalytic activity/Vol] 71 U/L 45-117 [facility] Work Phone: ALT [Catalytic activity/Vol] 29 U/L 16-61 [facility] Work Phone: CO2 [Moles/Vol] 27.0 mmol/L 21.0-32.0 [facility] Work Phone: Globulin (S) [Mass/Vol] 3.8 g/dL 2.2-4.2 [facility] Work Phone: Urea nitrogen/Creatinine [Mass ratio] 15.0 mg/mg 10-20 [facility] Work Phone: Laboratory - Hematology and Cell countson 09-23-2021 Erythrocyte distribution width (RBC) [Entitic vol] 44.2 fL 35.1-43.9 [facility] Work Phone: Erythrocyte distribution width (RBC) [Ratio] 12.9 % 11.6-14.6 [facility] Work Phone: MCH (RBC) [Entitic mass] 30.8 pg 27.0-32.0 [facility] Work Phone: MCHC Auto (RBC) [Mass/Vol]on 09-23-2021 MCHC (RBC) [Mass/Vol] 33.0 g/dL 32-36 [facility] Work Phone: No Panel Informationon 09-23 Estimated GFR (MDRD) Amer 82 mL/min >60 [facility] Work Phone: Comment on above: GFR Calc Estimated GFR (MDRD) Non-Af Amer 68 mL/min >60 [facility] Work Phone: Comment on above: Non- GFR Calc Prostate Specific Antigen Screen 0.43 ng/mL 0.00-4.00 [facility] Work Phone: Comment on above: This test was perfor med using the TPSA assay method for [employer] chemistry system. Values obtained with differentassay methods cannot be used interchangably.When changing PSA assays in the course of monitoring apatient, additional sequential testing should be carriedout to confirm baseline values. Platelets bldon 09-23-2021 Platelets (Bld) [#/Vol] 106 10*3/uL 150-450 [facility] Work Phone: Serum or plasma albumin jamel urement (mass/volume)on 09-23-2021 Albumin [Mass/Vol] 3.4 g/dL 3.2-5.0 [facility] Work Phone: Serum or plasma albumin/glob ulin mass ratioon 09-23-2021 Albumin/Globulin [Mass ratio] 0.9 {ratio} 0.9-2.4 [facility] Work Phone: Serum or plasma calcium jamel urement (mass/volume)on 09-23-2021 Calcium [Mass/Vol] 8.4 mg/dL 8.5-10.1 [facility] Work Phone: Serum or plasma creatinine m easurement (mass/volume)on 09-23-2021 Creatinine [Mass/Vol] 1.13 mg/dL 0.70-1.30 [facility] Work Phone: Comment on above: The validity of the calculated GFR & GFRAA in patients over 70 years has not been determined. Clinical correlation is essential. Serum or plasma urea nitroge n measurement (mass/volume)on 09-23-2021 Urea nitrogen [Mass/Vol] 17 mg/dL 7-18 [facility] Work Phone: Thin prep Papanicolaou smear with manual screeningon 09-23-2021 Thin prep Papanicolaou smear with manual screening 26 U/L 15-37 [facility] Work Phone: Thin prep Papanicolaou smear with manual screening 7 5-15 [facility] Work Phone: Culture, urine Bacteria identified Cx Nom (U) Culture exhibits no growth. [facility] Work Phone: Vital Signs Date Time Vital Sign Value Performing Clinician Facility 09-05-2024 [id number] Body height 169 cm [facility] Phone: [facility] 09-05-2024 14:11-0400 Body mass index (BMI) [Ratio] 24.22 kg/m2 [facility] Phone: [facility] 09-05-2024 14:11-0400 Body temperature 97.7 [degF] [facility] Phone: [facility] 09-05-2024 14:11-0400 Body weight 69.17 kg [facility] Phone: [facility] 09-05-2024 14:11-0400 Diastolic blood pressure 69 mm[Hg] [facility] Phone: [facility] 09-05-2024 14:11-0400 Heart rate 75 /min [facility] Phone: [facility] 09-05-2024 14:11-0400 SaO2% (BldA) [Mass fraction] 93 % [facility] [employer] Work Phone: [facility] 09-05-2024 14:11-0400 Systolic blood pressure 145 mm[Hg] [facility] Phone: [facility] 08-30-2024 08:13-0400 Body height 167.[address] Padmini Carrasco MD Work Phone: [facility] 08-30-2024 08:13-0400 Body mass index (BMI) [Ratio] 24.8 kg/m2 Dr. Padmini Carrasco MD Work Phone: [facility] 08-30-2024 08:13-0400 Body weight 69.[address] Padmini Carrasco MD Work Phone: [facility] 08-30-2024 08:13-0400 Diastolic blood pressure 61 mm[Hg] Dr. Padmini Carrasco MD Work Phone: [facility] 08-30-2024 08:13-0400 Heart rate 54 /min Dr. Padmini Carrasco MD Work Phone: [facility] 08-30-2024 08:13-0400 Respiratory rate 16 /min Dr. Padmini Carrasco MD Work Phone: [facility] 08-30-2024 08:13-0400 SaO2% (BldA) [Mass fraction] 93 % Dr. Padmini Carrasco MD Work Phone: [facility] 08-30-2024 08:13-0400 Systolic blood pressure 99 mm[Hg] Dr. Padmini Carrasco MD Work Phone: [facility] 08-29-2024 13:08-0400 Body mass index (BMI) [Ratio] 25.19 kg/m2 Stacy Gauthier MD Work Phone: [facility] 08-29-2024 13:08-0400 Body weight 70.76 kg Stacy Gauthier MD Work Phone: [facility] 08-16-2024 10:19-0400 Body height 167.6 cm P[address] 1 [facility] 08-16-2024 10:19-0400 Body mass index (BMI) [Ratio] 25.26 kg/m2 Pst 1 [facility] 08-16-2024 10:19-0400 Body temperature 96.8 [degF] Pst 1 [facility] 08-16-2024 10:19-0400 Body weight 70.94 kg Pst 1 [facility] 08-16-2024 10:19-0400 Diastolic blood pressure 82 mm[Hg] Pst 1 [facility] 08-16-2024 10:19-0400 Heart rate 53 /min Pst 1 [facility] 08-16-2024 10:19-0400 Respiratory rate 16 /min Pst 1 [facility] 08-16-2024 10:19-0400 SaO2% (BldA) [Mass fraction] 99 % Pst 1 [facility] 08-16-2024 10:19-0400 Systolic blood pressure 138 mm[Hg] Pst 1 [facility] 08-02-2024 14:06-0400 Body height 167.6 cm Stacy Gauthier MD Work Phone: [facility] 08-02-2024 14:06-0400 Body mass index (BMI) [Ratio] 25.19 kg/m2 Stacy Gauthier MD Work Phone: [facility] 08-02-2024 14:06-0400 Body weight 70.76 kg Stacy Gauthier MD Work Phone: [facility] 08-02-2024 14:06-0400 Heart rate 65 /min Stacy Gauthier MD Work Phone: [facility] 08-02-2024 14:06-0400 SaO2% (BldA) [Mass fraction] 91 % Stacy Gauthier MD Work Phone: [facility] 07-26-2024 09:00-0400 Body height 167.6 cm Codey Christianson MD Work Phone: [facility] 07-26-2024 09:00-0400 Body mass index (BMI) [Ratio] 25.3 kg/m2 Codey Christianson MD Work Phone: [facility] 07-26-2024 09:00-0400 Body temperature 97.3 [degF] Codey Christianson MD Work Phone: [facility] 07-26-2024 09:00-0400 Body weight 71.1 kg Codey Christianson MD Work Phone: [facility] 07-26-2024 09:00-0400 Diastolic blood pressure 67 mm[Hg] Codey Christianson MD Work Phone: [facility] 07-26-2024 09:00-0400 Heart rate 50 /min Codey Christianson MD Work Phone: [facility] Comment on above: md notified 07-26-2024 09:00-0400 Respiratory rate 18 /min Codey Christianson MD Work Phone: [facility] 07-26-2024 09:00-0400 SaO2% (BldA) [Mass fraction] 97 % Codey Christianson MD Work Phone: [facility] 07-26-2024 09:00-0400 Systolic blood pressure 150 mm[Hg] Codey Christianson MD Work Phone: [facility] 06-28-2024 12:15-0400 Body temperature 98.4 [degF] Dr. Padmini Carrasco MD Work Phone: [facility] 06-28-2024 12:15-0400 Diastolic blood pressure 76 mm[Hg] Dr. Padmini Carrasco MD Work Phone: [facility] 06-28-2024 12:15-0400 Heart rate 64 /min Dr. Padmini Carrasco MD Work Phone: [facility] 06-28-2024 12:15-0400 Inhaled oxygen flow rate 2 L/min Dr. Padmini Carrasco MD Work Phone: [facility] 06-28-2024 12:15-0400 Respiratory rate 18 /min Dr. Padmini Carrasco MD Work Phone: [facility] 06-28-2024 12:15-0400 SaO2% (BldA) [Mass fraction] 94 % Dr. Padmini Carrasco MD Work Phone: [facility] 06-28-2024 12:15-0400 Systolic blood pressure 152 mm[Hg] Dr. Padmini Carrasco MD Work Phone: [facility] 06-27-2024 15:48-0400 Body height 167.[address] Padmini Carrasco MD Work Phone: [facility] 06-27-2024 15:48-0400 Body mass index (BMI) [Ratio] 25.6 kg/m2 Dr. Pdamini Carrasco MD Work Phone: 0(888)585-458564 [place] [address] 06-27-2024 15:48-0400 Body weight [address] Padmini Carrasco MD Work Phone: 8(956)175-877466 [place] [address] 06-27-2024 07:38-0400 Body temperature 97.8 [degF] Dr. Padmini Carrasco MD Work Phone: 4(094)415-193866 [place] [address] 06-27-2024 07:38-0400 Diastolic blood pressure 73 mm[Hg] Dr. Padmini Carrasco MD Work Phone: 8(447)742-557866 [place] [address] 06-27-2024 07:38-0400 Heart rate 56 /min Dr. Padmini Carrasco MD Work Phone: 2(484)609-946766 [place] [address] 06-27-2024 07:38-0400 Respiratory rate 16 /min Dr. Padmini Carrasco MD Work Phone: 4(261)633-096666 [place] [address] 06-27-2024 07:38-0400 SaO2% (BldA) [Mass fraction] 97 % Dr. Padmini Carrasco MD Work Phone: 4(077)041-937564 [place] [address] 06-27-2024 07:38-0400 Systolic blood pressure 173 mm[Hg] Dr. Padmini Carrasco MD Work Phone: 2(704)955-824166 [place] [address] 06-27-2024 06:57-0400 Body height 167.[address] Padmini Carrasco MD Work Phone: [facility] 06-27-2024 06:57-0400 Body mass index (BMI) [Ratio] 25.6 kg/m2 Dr. Padmini Carrasco MD Work Phone: 1(835)281-523964 [place] [address] 06-27-2024 06:57-0400 Body weight [address] Padmini Carrasco MD Work Phone: [facility] 06-19-2024 15:38-0400 Diastolic blood pressure 72 mm[Hg] Dr. Padmini Carrasco MD Work Phone: [facility] 06-19-2024 15:38-0400 Systolic blood pressure 146 mm[Hg] Dr. Padmini Carrasco MD Work Phone: [facility] 06-19-2024 06:17-0400 Body height 167.[address] Padmini Carrasco MD Work Phone: [facility] 06-19-2024 06:17-0400 Body mass index (BMI) [Ratio] 25.7 kg/m2 Dr. Padmini Carrasco MD Work Phone: [facility] 06-19-2024 06:17-0400 Body weight 72.[address] Padmini Carrasco MD Work Phone: [facility] 06-19-2024 06:17-0400 Diastolic blood pressure 77 mm[Hg] Dr. Padmini Carrasco MD Work Phone: [facility] 06-19-2024 06:17-0400 Heart rate 52 /min Dr. Padmini Carrasco MD Work Phone: [facility] 06-19-2024 06:17-0400 Respiratory rate 18 /min Dr. Padmini Carrasco MD Work Phone: [facility] 06-19-2024 06:17-0400 SaO2% (BldA) [Mass fraction] 94 % Dr. Padmini Carrasco MD Work Phone: [facility] 06-19-2024 06:17-0400 Systolic blood pressure 163 mm[Hg] Dr. Padmini Carrasco MD Work Phone: [facility] 05-17-2024 00:50-0400 Body temperature 97.9 [degF] Dr. Padmini Carrasco MD Work Phone: [facility] 05-17-2024 00:50-0400 Diastolic blood pressure 78 mm[Hg] Dr. Padmini Carrasco MD Work Phone: [facility] 05-17-2024 00:50-0400 Heart rate 66 /min Dr. Padmini Carrasco MD Work Phone: 0(030)975-554964 [place] [address] 05-17-2024 00:50-0400 Respiratory rate 20 /min Dr. Padmini Carrasco MD Work Phone: [facility] 05-17-2024 00:50-0400 SaO2% (BldA) [Mass fraction] 95 % Dr. Padmini Carrasco MD Work Phone: [facility] 05-17-2024 00:50-0400 Systolic blood pressure 164 mm[Hg] Dr. Padmini Carrasco MD Work Phone: 9(262)689-436264 [place] [address] 05-16-2024 22:09-0400 Body height 167.[address] Padmini Carrasco MD Work Phone: 6(255)512-620464 [place] [address] 05-16-2024 22:09-0400 Body mass index (BMI) [Ratio] 25.9 kg/m2 Dr. Padmini Carrasco MD Work Phone: 4(920)134-811264 [place] [address] 05-16-2024 22:09-0400 Body weight 73.[address] Padmini Carrasco MD Work Phone: 6(719)683-218364 [place] [address] 03-23-2024 08:03-0500 Body mass index (BMI) [Ratio] 25.8 kg/m2 Dr. Padmini Carrasco MD Work Phone: 4(789)556-103989 [address] 03-23-2024 08:03-0500 Body temperature 97.2 [degF] Dr. Padmini Carrasco MD Work Phone: 2(137)821-474864 [place] [address] 03-23-2024 08:03-0500 Body weight 72.[address] Padmini Carrasco MD Work Phone: 3(311)608-889064 [place] [address] 03-23-2024 08:03-0500 Diastolic blood pressure 87 mm[Hg] Dr. Padmini Carrasco MD Work Phone: [facility] 03-23-2024 08:03-0500 Heart rate 57 /min Dr. Padmini Carrasco MD Work Phone: [facility] 03-23-2024 08:03-0500 Respiratory rate 18 /min Dr. Padmini Carrasco MD Work Phone: [facility] 03-23-2024 08:03-0500 SaO2% (BldA) [Mass fraction] 98 % Dr. Padmini Carrasco MD Work Phone: [facility] 03-23-2024 08:03-0500 Systolic blood pressure 145 mm[Hg] Dr. Padmini Carrasco MD Work Phone: 1(673)974-034589 [address] 01-18-2024 14:11-0500 Body temperature 97.9 [degF] Dr. Padmini Carrasco MD Work Phone: [facility] 01-18-2024 14:11-0500 Diastolic blood pressure 69 mm[Hg] Dr. Padmini Carrasco MD Work Phone: [facility] 01-18-2024 14:11-0500 Heart rate 53 /min Dr. Padmini Carrasco MD Work Phone: [facility] 01-18-2024 14:11-0500 Respiratory rate 16 /min Dr. Padmini Carrasco MD Work Phone: [facility] 01-18-2024 14:11-0500 SaO2% (BldA) [Mass fraction] 94 % Dr. Padmini Carrasco MD Work Phone: [facility] 01-18-2024 14:11-0500 Systolic blood pressure 160 mm[Hg] Dr. Padmini Carrasco MD Work Phone: [facility] 01-18-2024 10:01-0500 Body height 167.[address] Padmini Carrasco MD Work Phone: [facility] 01-18-2024 10:01-0500 Body mass index (BMI) [Ratio] 25.2 kg/m2 Dr. Padmini Carrasco MD Work Phone: 9(757)904-698564 [place] [address] 01-18-2024 10:01-0500 Body weight [address] Padmini Carrasco MD Work Phone: 6(843)764-418366 [place] [address] 02-28-2023 10:06-0500 Diastolic blood pressure 80 mm[Hg] Dr. Ezekiel Carrasco Work Phone: 0(778)355-671766 [place] [address] 02-28-2023 10:06-0500 Systolic blood pressure 164 mm[Hg] Dr. Ezekiel Carrasco Work Phone: 1(790)338-388266 [place] [address] 02-28-2023 09:35-0500 Body height 167.[address] Ezekiel Carrasco Work Phone: 6(087)678-940966 [place] [address] 02-28-2023 09:35-0500 Body mass index (BMI) [Ratio] 24.5 kg/m2 Dr. Ezekiel Carrasco Work Phone: 8(455)124-057866 [place] [address] 02-28-2023 09:35-0500 Body weight 68.[address] Ezekiel Carrasco Work Phone: 5(274)264-739866 [place] [address] 02-28-2023 09:35-0500 Heart rate 54 /min Dr. Ezekiel Carrasco Work Phone: 3(963)795-527266 [place] [address] 02-28-2023 09:35-0500 Respiratory rate 18 /min Dr. Ezekiel Carrasco Work Phone: 8(793)002-295366 [place] [address] 02-28-2023 09:35-0500 SaO2% (BldA) [Mass fraction] 96 % Dr. Ezekiel Carrasco Work Phone: 6(499)962-959166 [place] [address] 01-27-2023 07:54-0500 Body mass index (BMI) [Ratio] 23.9 kg/m2 Dr. Ezekiel Carrasco Work Phone: 5(360)870-899366 [place] [address] 01-27-2023 07:54-0500 Body temperature 98 [degF] Dr. Ezekiel Carrasco Work Phone: [facility] 01-27-2023 07:54-0500 Body weight 67.[address] Ezekiel Carrasco Work Phone: [facility] 01-27-2023 07:54-0500 Diastolic blood pressure 77 mm[Hg] Dr. Ezekiel Carrasco Work Phone: [facility] 01-27-2023 07:54-0500 Heart rate 55 /min Dr. Ezekiel Carrasco Work Phone: [facility] 01-27-2023 07:54-0500 Respiratory rate 18 /min Dr. Ezekiel Carrasco Work Phone: [facility] 01-27-2023 07:54-0500 SaO2% (BldA) [Mass fraction] 99 % Dr. Ezekiel Carrasco Work Phone: [facility] 01-27-2023 07:54-0500 Systolic blood pressure 183 mm[Hg] Dr. Ezekiel Carrasco Work Phone: [facility] 12-27-2022 15:13-0500 Body temperature 98.2 [degF] Dr. Ezekiel Carrasco Work Phone: [facility] 12-27-2022 15:13-0500 Body weight 65.[address] Ezekiel Carrasco Work Phone: [facility] 12-27-2022 15:13-0500 Diastolic blood pressure 68 mm[Hg] Dr. Ezekiel Carrasco Work Phone: [facility] 12-27-2022 15:13-0500 Heart rate 58 /min Dr. Ezekiel Carrasco Work Phone: [facility] 12-27-2022 15:13-0500 Respiratory rate 16 /min Dr. Ezekiel Carrasco Work Phone: [facility] 12-27-2022 15:13-0500 SaO2% (BldA) [Mass fraction] 98 % Dr. Ezekiel Carrasco Work Phone: [facility] 12-27-2022 15:13-0500 Systolic blood pressure 151 mm[Hg] Dr. Ezekiel Carrasco Work Phone: [facility] 07-28-2022 10:32-0400 Body height 167.[address] Ezekiel Carrasco Work Phone: [facility] 07-28-2022 10:31-0400 Body mass index (BMI) [Ratio] 23.3 kg/m2 Dr. Ezekiel Carrasco Work Phone: [facility] 07-28-2022 10:31-0400 Body temperature 97.6 [degF] Dr. Ezekiel Carrasco Work Phone: 2(396)306-875064 [place] [address] 07-28-2022 10:31-0400 Body weight 65.[address] Ezekiel Carrasco Work Phone: [facility] 07-28-2022 10:31-0400 Diastolic blood pressure 80 mm[Hg] Dr. Ezekiel Carrasco Work Phone: 4(208)983-353164 [place] [address] 07-28-2022 10:31-0400 Heart rate 84 /min Dr. Ezekiel Carrasco Work Phone: [facility] 07-28-2022 10:31-0400 Respiratory rate 18 /min Dr. Ezekiel Carrasco Work Phone: [facility] 07-28-2022 10:31-0400 SaO2% (BldA) [Mass fraction] 95 % Dr. Ezekiel Carrasco Work Phone: [facility] 07-28-2022 10:31-0400 Systolic blood pressure 138 mm[Hg] Dr. Ezekiel Carrasco Work Phone: [facility] 06-04-2022 08:37-0400 Body temperature 95.6 [degF] Dr. Ezekiel Carrasco Work Phone: [facility] 06-04-2022 08:37-0400 Diastolic blood pressure 74 mm[Hg] Dr. Ezekiel Carrasco Work Phone: [facility] 06-04-2022 08:37-0400 Heart rate 69 /min Dr. Ezekiel Carrasco Work Phone: [facility] 06-04-2022 08:37-0400 Respiratory rate 16 /min Dr. Ezekiel Carrasco Work Phone: [facility] 06-04-2022 08:37-0400 Systolic blood pressure 136 mm[Hg] Dr. Ezekiel Carrasco Work Phone: [facility] 05-21-2022 08:08-0400 Body temperature 97.1 [degF] Dr. Ezekiel Carrasco Work Phone: [facility] 05-21-2022 08:08-0400 Diastolic blood pressure 71 mm[Hg] Dr. Ezekiel Carrasco Work Phone: [facility] 05-21-2022 08:08-0400 Heart rate 73 /min Dr. Ezekiel Carrasco Work Phone: [facility] 05-21-2022 08:08-0400 Respiratory rate 16 /min Dr. Ezekiel Carrasco Work Phone: [facility] 05-21-2022 08:08-0400 Systolic blood pressure 133 mm[Hg] Dr. Ezekiel Carrasco Work Phone: [facility] 05-17-2022 14:02-0400 Body height 167.[address] Ezekiel Carrasco Work Phone: [facility] 05-17-2022 14:02-0400 Body mass index (BMI) [Ratio] 24.5 kg/m2 Dr. Ezekiel Carrasco Work Phone: [facility] 05-17-2022 14:02-0400 Body weight 68.[address] Ezekiel Carrasco Work Phone: [facility] 05-17-2022 14:02-0400 Diastolic blood pressure 74 mm[Hg] Dr. Ezekiel Carrasco Work Phone: [facility] 05-17-2022 14:02-0400 Heart rate 58 /min Dr. Ezekiel Carrasco Work Phone: [facility] 05-17-2022 14:02-0400 Respiratory rate 18 /min Dr. Ezekiel Carrasco Work Phone: [facility] 05-17-2022 14:02-0400 SaO2% (BldA) [Mass fraction] 96 % Dr. Ezekiel Carrasco Work Phone: [facility] 05-17-2022 14:02-0400 Systolic blood pressure 134 mm[Hg] Dr. Ezekiel Carrasco Work Phone: [facility] 05-14-2022 08:07-0400 Body temperature 96.4 [degF] Dr. Ezekiel Carrasco Work Phone: [facility] 05-14-2022 08:07-0400 Diastolic blood pressure 74 mm[Hg] Dr. Ezekiel Carrasco Work Phone: [facility] 05-14-2022 08:07-0400 Heart rate 72 /min Dr. Ezekiel Carrasco Work Phone: [facility] 05-14-2022 08:07-0400 Respiratory rate 18 /min Dr. Ezekiel Carrasco Work Phone: [facility] 05-14-2022 08:07-0400 Systolic blood pressure 129 mm[Hg] Dr. Ezekiel Carrasco Work Phone: [facility] 05-11-2022 12:39-0400 Body weight 66.[address] Ezekiel Carrasco Work Phone: [facility] 05-11-2022 12:39-0400 Heart rate 80 /min Dr. Ezekiel Carrasco Work Phone: [facility] 05-11-2022 12:39-0400 SaO2% (BldA) [Mass fraction] 96 % Dr. Ezekiel Carrasco Work Phone: [facility] 05-08-2022 00:43-0400 Inhaled oxygen flow rate 2 L/min Dr. Ezekiel Carrasco Work Phone: [facility] 05-07-2022 10:14-0400 Body temperature 96.6 [degF] Dr. Ezekiel Carrasco Work Phone: [facility] 05-07-2022 10:14-0400 Diastolic blood pressure 66 mm[Hg] Dr. Ezekiel Carrasco Work Phone: [facility] 05-07-2022 10:14-0400 Heart rate 67 /min Dr. Ezekiel Carrasco Work Phone: [facility] 05-07-2022 10:14-0400 Respiratory rate 16 /min Dr. Ezekiel Carrasco Work Phone: [facility] 05-07-2022 10:14-0400 Systolic blood pressure 129 mm[Hg] Dr. Ezekiel Carrasco Work Phone: [facility] 04-16-2022 14:11-0500 Inhaled oxygen flow rate 2 L/min Dr. Ezekiel Carrasco Work Phone: [facility] 03-30-2022 07:45-0500 Body height 167.[address] Ezekiel Carrasco Work Phone: [facility] 03-30-2022 07:45-0500 Body mass index (BMI) [Ratio] 23.7 kg/m2 Dr. Ezekiel Carrasco Work Phone: [facility] 03-30-2022 07:45-0500 Body temperature 97.6 [degF] Dr. Ezekiel Carrasco Work Phone: [facility] 03-30-2022 07:45-0500 Body weight 66.[address] Ezekiel Carrasco Work Phone: [facility] 03-30-2022 07:45-0500 Diastolic blood pressure 87 mm[Hg] Dr. Ezekiel Carrasco Work Phone: [facility] 03-30-2022 07:45-0500 Heart rate 107 /min Dr. Ezekiel Carrasco Work Phone: [facility] 03-30-2022 07:45-0500 Inhaled oxygen flow rate 2 L/min Dr. Ezekiel Carrasco Work Phone: [facility] 03-30-2022 07:45-0500 Respiratory rate 18 /min Dr. Ezekiel Carrasco Work Phone: [facility] 03-30-2022 07:45-0500 SaO2% (BldA) [Mass fraction] 99 % Dr. Ezekiel Carrasco Work Phone: [facility] 03-30-2022 07:45-0500 Systolic blood pressure 142 mm[Hg] Dr. Ezekiel Carrasco Work Phone: 4(067)735-595464 [place] [address] 03-29-2022 14:15-0500 Body mass index (BMI) [Ratio] 23.7 kg/m2 Dr. Ezekiel Carrasco Work Phone: 8(673)271-498364 [place] [address] 03-29-2022 14:15-0500 Body weight 66.[address] Ezekiel Carrasco Work Phone: [facility] 03-29-2022 14:15-0500 Diastolic blood pressure 64 mm[Hg] Dr. Ezekiel Carrasco Work Phone: [facility] 03-29-2022 14:15-0500 Heart rate 76 /min Dr. Ezekiel Carrasco Work Phone: [facility] 03-29-2022 14:15-0500 Inhaled oxygen flow rate 2 L/min Dr. Ezekiel Carrasco Work Phone: [facility] 03-29-2022 14:15-0500 Respiratory rate 20 /min Dr. Ezekiel Carrasco Work Phone: [facility] 03-29-2022 14:15-0500 SaO2% (BldA) [Mass fraction] 95 % Dr. Ezekiel Carrasco Work Phone: [facility] 03-29-2022 14:15-0500 Systolic blood pressure 107 mm[Hg] Dr. Ezekiel Carrasco Work Phone: [facility] 03-23-2022 14:03-0500 Body height 167.[address] Ezekiel Carrasco Work Phone: 4(587)791-152464 [place] [address] 03-23-2022 14:03-0500 Body mass index (BMI) [Ratio] 26.6 kg/m2 Dr. Ezekiel Carrasco Work Phone: 3(090)128-188789 [address] 03-23-2022 14:03-0500 Body weight 74.[address] Ezekiel Carrasco Work Phone: 3(528)110-784389 [address] 03-23-2022 14:03-0500 Diastolic blood pressure 73 mm[Hg] Dr. Ezekiel Carrasco Work Phone: 7(440)893-561664 [place] [address] 03-23-2022 14:03-0500 Heart rate 72 /min Dr. Ezekile Carrasco Work Phone: 4(932)275-456389 [address] 03-23-2022 14:03-0500 Respiratory rate 20 /min Dr. Ezekiel Carrasco Work Phone: 0(333)409-039864 [place] [address] 03-23-2022 14:03-0500 SaO2% (BldA) [Mass fraction] 94 % Dr. Ezekiel Carrasco Work Phone: [facility] 03-23-2022 14:03-0500 Systolic blood pressure 143 mm[Hg] Dr. Ezekiel Carrasco Work Phone: 7(695)154-362089 [address] 03-22-2022 16:32-0500 Body mass index (BMI) [Ratio] 26.4 kg/m2 Dr. Ezekiel Carrasco Work Phone: [facility] 03-22-2022 16:32-0500 Body temperature 97.8 [degF] Dr. Ezekiel Carrasco Work Phone: [facility] 03-22-2022 16:32-0500 Body weight 74.[address] Ezekiel Carrasco Work Phone: [facility] 03-22-2022 16:32-0500 Diastolic blood pressure 87 mm[Hg] Dr. Ezekiel Carrasco Work Phone: [facility] 03-22-2022 16:32-0500 Heart rate 93 /min Dr. Ezekiel Carrasco Work Phone: [facility] 03-22-2022 16:32-0500 Inhaled oxygen flow rate 2 L/min Dr. Ezekiel Carrasco Work Phone: [facility] 03-22-2022 16:32-0500 Respiratory rate 20 /min Dr. Ezekiel Carrasco Work Phone: [facility] 03-22-2022 16:32-0500 SaO2% (BldA) [Mass fraction] 95 % Dr. Ezekiel Carrasco Work Phone: [facility] 03-22-2022 16:32-0500 Systolic blood pressure 145 mm[Hg] Dr. Ezekiel Carrasco Work Phone: [facility] 03-04-2022 16:23-0500 Inhaled oxygen flow rate 2 L/min Dr. Ezekiel Carrasco Work Phone: [facility] 03-04-2022 16:00-0500 Body temperature 98 [degF] Dr. Ezekiel Carrasco Work Phone: [facility] 03-04-2022 16:00-0500 Diastolic blood pressure 84 mm[Hg] Dr. Ezekiel Carrasco Work Phone: [facility] 03-04-2022 16:00-0500 Heart rate 90 /min Dr. Ezekiel Carrasco Work Phone: [facility] 03-04-2022 16:00-0500 SaO2% (BldA) [Mass fraction] 94 % Dr. Ezekiel Carrasco Work Phone: [facility] 03-04-2022 16:00-0500 Systolic blood pressure 129 mm[Hg] Dr. Ezekiel Carrasco Work Phone: [facility] 03-04-2022 13:43-0500 SaO2% (BldA) [Mass fraction] 98 % Dr. Ezekiel Carrasco Work Phone: 1(649)420-362564 [place] [address] 03-04-2022 11:47-0500 Heart rate 83 /min Dr. Ezekiel Carrasco Work Phone: 1(354)155-837964 [place] [address] 03-04-2022 11:47-0500 Respiratory rate 18 /min Dr. Ezekiel Carrasco Work Phone: 5(235)037-915489 [address] 03-04-2022 10:00-0500 Body temperature 97.6 [degF] Dr. Ezekiel Carrasco Work Phone: 1(742)992-441889 [address] 03-04-2022 10:00-0500 Diastolic blood pressure 89 mm[Hg] Dr. Ezekiel Carrasco Work Phone: 8(269)521-400289 [address] 03-04-2022 10:00-0500 Systolic blood pressure 139 mm[Hg] Dr. Ezekiel Carrasco Work Phone: 5(426)673-758789 [address] 03-03-2022 13:50-0500 Body height 167.[address] Ezekiel Carrasco Work Phone: 4(457)829-064664 [place] [address] 03-03-2022 13:50-0500 Body weight 69.[address] Ezekiel Carrasco Work Phone: 9(118)722-126264 [place] [address] 03-03-2022 02:55-0500 Inhaled oxygen concentration 4 % Dr. Ezekiel Carrasco Work Phone: [facility] 03-02-2022 16:29-0500 Body mass index (BMI) [Ratio] 24.8 kg/m2 Dr. Ezekiel Carrasco Work Phone: 8(750)255-516664 [place] [address] 03-02-2022 16:06-0500 Body temperature 97.5 [degF] Dr. Ezekiel Carrasco Work Phone: [facility] 03-02-2022 16:06-0500 Diastolic blood pressure 88 mm[Hg] Dr. Ezekiel Carrasco Work Phone: [facility] 03-02-2022 16:06-0500 Heart rate 84 /min Dr. Ezekiel Carrasco Work Phone: [facility] 03-02-2022 16:06-0500 Inhaled oxygen flow rate 3 L/min Dr. Ezekiel Carrasco Work Phone: [facility] 03-02-2022 16:06-0500 Respiratory rate 26 /min Dr. Ezekiel Carrasco Work Phone: [facility] 03-02-2022 16:06-0500 SaO2% (BldA) [Mass fraction] 92 % Dr. Ezekiel Carrasco Work Phone: [facility] 03-02-2022 16:06-0500 Systolic blood pressure 125 mm[Hg] Dr. Ezekiel Carrasco Work Phone: [facility] 03-02-2022 09:04-0500 Body height 167.[address] Ezekiel Carrasco Work Phone: [facility] 03-02-2022 09:04-0500 Body mass index (BMI) [Ratio] 24.8 kg/m2 Dr. Ezekiel Carrasco Work Phone: [facility] 03-02-2022 09:04-0500 Body weight 69.[address] Ezekiel Carrasco Work Phone: [facility] 01-06-2022 08:31-0500 Body height 167.[address] Ezekiel Carrasco Work Phone: [facility] Work Phone: 01-06-2022 08:24-0500 Body mass index (BMI) [Ratio] 27.9 kg/m2 Dr. Ezekiel Carrasco Work Phone: [facility] 01-06-2022 08:24-0500 Body weight 78.[address] Ezekiel Carrasco Work Phone: [facility] 01-06-2022 08:24-0500 Diastolic blood pressure 78 mm[Hg] Dr. Ezekiel Carrasco Work Phone: [facility] 01-06-2022 08:24-0500 Heart rate 71 /min Dr. Ezekiel Carrasco Work Phone: [facility] 01-06-2022 08:24-0500 Respiratory rate 18 /min Dr. Ezekiel Carrasco Work Phone: [facility] 01-06-2022 08:24-0500 SaO2% (BldA) [Mass fraction] 94 % Dr. Ezekiel Carrasco Work Phone: [facility] 01-06-2022 08:24-0500 Systolic blood pressure 133 mm[Hg] Dr. Ezekiel Carrasco Work Phone: [facility] 12-28-2021 12:34-0500 Diastolic blood pressure 86 mm[Hg] [facility] 12-28-2021 12:34-0500 Heart rate 85 /min [facility] 12-28-2021 12:34-0500 Respiratory rate 18 /min [facility] 12-28-2021 12:34-0500 SaO2% (BldA) [Mass fraction] 97 % [facility] 12-28-2021 12:34-0500 Systolic blood pressure 175 mm[Hg] [facility] 12-28-2021 09:44-0500 Body height 167.64 cm [facility] Work Phone: 12-28-2021 09:44-0500 Body mass index (BMI) [Ratio] 25.9 kg/m2 [facility] 12-28-2021 09:44-0500 Body temperature 96.1 [degF] [facility] 12-28-2021 09:44-0500 Body weight 72.9 kg [facility] 07-07-2021 08:23-0400 Body height 167.[address] Ezekiel Carrasco Work Phone: [facility] Work Phone: 07-07-2021 08:23-0400 Body weight 80.[address] Ezekiel Carrasco Work Phone: [facility] Work Phone: 07-07-2021 08:23-0400 Diastolic blood pressure 83 mm[Hg] Dr. Ezekiel Carrasco Work Phone: [facility] Work Phone: 07-07-2021 08:23-0400 Heart rate 77 /min Dr. Ezekiel Carrasco Work Phone: [facility] Work Phone: 07-07-2021 08:23-0400 Respiratory rate 18 /min Dr. Ezekiel Carrasco Work Phone: [facility] Work Phone: 07-07-2021 08:23-0400 SaO2% (BldA) [Mass fraction] 96 % Dr. Ezekiel Carrasco Work Phone: [facility] Work Phone: 07-07-2021 08:23-0400 Systolic blood pressure 142 mm[Hg] Dr. Ezekiel Carrasco Work Phone: [facility] Work Phone: 09-18-2020 08:58-0400 Body mass index (BMI) [Ratio] 31.6 kg/m2 Dr. Ezekiel Carrasco Work Phone: [facility] Work Phone: Encounters Encounter Date Encounter Type Care Provider Facility Start: 09-21-2024 ambulatory Padmini Leroy lity:[facility] Start: 09-18-2024 ambulatory STACY GAUTHIER Facility: [facility] Start: 09-18-2024 End: 09-18-2024 Subsequent hospital visit by physician [facility] ([facility]) Work Phone: Cat Scan Comment on above: Malignant neoplasm o f urinary bladder, unspecified site (HCC) [C67.9] Start: 09-12-2024 End: 09-12-2024 ambulatory PADMINI CARRASCO Facility:[facility] Start: 09-07-2024 End: 09-19-2024 Patient encounter procedure Luigi Banks MD Work Phone: Radiation Oncology Start: 09-07-2024 End: 09-19-2024 Radiation Oncology Note Luigi Bakns MD Work Phone: Radiation Oncology Comment on above: Simulation Note Treatment Planning Start: 09-07-2024 End: 09-07-2024 ambulatory ANTHONY RIVERS Facility:[facility] Start: 09-07-2024 End: 09-07-2024 [facility] Work Phone: Radiology Comment on above: Malignant neoplasm o f overlapping sites of bladder (HCC) [C67.8] Start: 09-07-2024 End: 09-07-2024 Nursing evaluation of patient and report Nurse [facility] Work Phone: Radiation Oncology Comment on above: 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) Start: 09-07-2024 End: 09-07-2024 ambulatory [facility] Facility:[facility] Start: 09-06-2024 End: 09-06-2024 Telephone encounter Stacy Gauthier MD Work Phone: Urology Comment on above: Orders Start: 09-06-2024 End: 09-06-2024 ambulatory [facility] Facility:[facility] Start: 09-05-2024 End: 09-05-2024 Patient encounter procedure Anthony Rivers DO Work Phone: Hematology/Oncology Start: 09-05-2024 End: 09-06-2024 Telephone encounter Vivienne Gu RN Hematology/Oncology Comment on above: It Professional - O ther (Introduction ) Results Start: 09-05-2024 End: 09-05-2024 ambulatory Anthony Rivers DO Work Phone: Hematology/Oncology Comment on above: Malignant neoplasm o f urinary bladder, unspecified site (HCC) (Primary Dx) Start: 08-30-2024 End: 08-30-2024 Patient encounter procedure Farheen LUNDBERG -[facility] Work Phone: Start: 08-30-2024 End: 08-30-2024 Patient encounter status Farheen LUNDBERG [facility] Start: 08-30-2024 End: 08-30-[address] Padmini Carrasco MD Work Phone: -[facility] Start: 08-29-2024 End: 08-29-2024 Telephone encounter Codey Christianson MD Work Phone: Hematology/Oncology Comment on above: It Professional - O ther Start: 08-29-2024 End: 08-29-2024 Patient encounter procedure Stacy Gauthier MD Work Phone: Urology Comment on above: Malignant neoplasm o f urinary bladder, unspecified site (HCC) (Primary Dx); Hematuria, gross Start: 08-29-2024 End: 08-29-2024 ambulatory STACY Shannon ABRAHAN Facility:[facility] Start: 08-24-2024 End: 08-24-2024 Telephone encounter Farheen Sommers RN Hematology/Oncology Comment on above: CASE [id number] Update Start: 08-22-2024 End: 08-22-2024 Telephone encounter Farheen Sommers RN Hematology/Oncology Comment on above: CASE [id number] Discussion Start: 08-21-2024 End: 08-21-2024 Telephone encounter Stacy Gauthier MD Work Phone: Urology Comment on above: Surgical Followup; O rders Start: 08-21-2024 End: 08-21-2024 ambulatory STACY Shannon ABRAHAN Facility:[facility] Start: 08-16-2024 End: 08-16-2024 Admission to establishment [facility] Pre Surgical Testing Start: 08-16-2024 End: 08-16-2024 Patient encounter status [facility] Work Phone: Start: 08-16-2024 End: 08-16-2024 ambulatory STACY GAUTHIER Pre Surgical Testing Comment on above: Preop testing (Prima ry Dx); 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lummi heart without angina pectoris; Essential hypertension; Hyperlipidemia, unspecified hyperlipidemia type; Centrilobular emphysema (HCC); Type 2 diabetes mellitus without complication, without long-term current use of insulin (HCC); Chronic kidney disease, unspecified CKD stage; Malignant neoplasm of urinary bladder, unspecified site (HCC) [C67.9]; Gross hematuria [R31.0] Start: 08-13-2024 End: 08-13-2024 Orders Only Stacy Gauthier MD Work Phone: Urology Comment on above: Malignant neoplasm o f urinary bladder, unspecified site (HCC) (Primary Dx); Hematuria, gross Start: 08-03-2024 End: 08-03-2024 Telephone encounter Farheen Sommers RN Hematology/Oncology Comment on above: CASE [id number] Follow Up Start: 08-02-2024 End: 08-02-2024 Patient encounter procedure Stacy Gauthier MD Work Phone: Urology Comment on above: Malignant neoplasm o f urinary bladder, unspecified site (HCC) (Primary Dx); Nocturia; Hematuria, gross Start: 08-02-2024 End: 08-02-2024 ambulatory STACY GAUTHIER Facility:[facility] Start: 07-31-2024 End: 07-31-2024 ambulatory CODEY CHRISTIANSON Facility:[facility] Start: 07-31-2024 End: 07-31-2024 Subsequent hospital visit by physician [facility] Cat Scan Comment on above: Malignant neoplasm o f urinary bladder, unspecified site (HCC) [C67.9] Start: 07-26-2024 End: 07-26-2024 Chart abstracting Farheen Sommers RN Hematology/Oncology Start: 07-26-2024 End: 07-26-2024 ambulatory CODEY CHRISTIANSON Facility:[facility] Start: 07-26-2024 End: 07-26-2024 Patient encounter procedure Codey Christianson MD Work Phone: Hematology/Oncology Start: 07-26-2024 End: 07-26-2024 ambulatory Codey Christianson MD Work Phone: Hematology/Oncology Comment on above: Malignant neoplasm o f urinary bladder, unspecified site (HCC) (Primary Dx) Start: 07-09-2024 End: 07-09-[address] Padmini Carrasco MD Work Phone: [facility] Work Phone: Start: 07-09-2024 End: 07-09-[address] Padmini Carrasco MD -Laboratory [place] Work Phone: Start: 07-09-2024 End: 07-09-2024 ambulatory Padmini Carrasco Facility:[facility] Start: 06-27-2024 End: 06-28-2024 ambulatory Pradip Mcclendon Facility:[facility] Start: 06-27-2024 End: 06-28-2024 Evaluation and management of inpatient Dr. Pradip Mcclendon MD -Medical Surgical 3 Work Phone: Start: 06-27-2024 Admission [facility] Dr. Pradip cMclendon MD -[employer] Operator Work Phone: Start: 06-21-2024 End: 06-21-[address] Padmini Carrasco MD Work Phone: [facility] Work Phone: Start: 06-21-2024 End: 06-21-[address] Pradip Mcclendon MD -Laboratory Work Phone: Start: 06-21-2024 End: 06-21-2024 ambulatory Pradip Mcclendon Facility:[facility] Start: 06-19-[address] Quin Carrasco MD Work Phone: [facility] Start: 06-19-2024 End: 06-19-2024 Patient encounter procedure Nito ACUNA -[place] [facility] Work Phone: Start: 06-19-2024 End: 06-19-2024 Patient encounter status Nito ACUNA [facility] Start: 06-19-2024 End: 06-19-[address] Padmini Carrasco MD Work Phone: [facility] Work Phone: Start: 05-28-2024 End: 05-28-[address] Pradip Mcclendon MD -Laboratory, Spec[place] Work Phone: Start: 05-28-2024 End: 05-28-2024 ambulatory Pradip Mcclendon Facility:[facility] Start: 05-16-2024 End: 05-17-2024 Emergency department patient visit Dr. Padmini Carrasco MD Work Phone: -Emergency Department Work Phone: Start: 05-10-2024 End: 05-10-[address] Padmini Carrasco MD Work Phone: [facility] Work Phone: Start: 05-10-2024 End: 05-10-[address] Padmini Carrasco MD -Laboratory, [facility] Start: 05-10-2024 End: 05-10-2024 ambulatory Padmini Carrasco Facility:[facility] Start: 03-23-2024 End: 03-23-2024 Patient encounter procedure Carmina LUNDBERG -[place] [facility] Work Phone: Start: 03-23-2024 End: 03-23-2024 ambulatory Padmini Carrasco Facility:[facility] Start: 02-21-2024 End: 02-21-2024 Patient encounter procedure Carmina PALACIOSC -Cat Scan, [facility] Work Phone: Start: 02-21-2024 End: 02-21-2024 ambulatory Padmini Carrasco Facility:[facility] Start: 02-02-2024 End: 02-02-[address] Marquise Barillas MD -[facility] Work Phone: Start: 02-02-2024 End: 02-02-2024 ambulatory Padmini Carrasco Facility:[facility] Start: 01-18-2024 Non-patient / Non-visit Dr. Alycia Barillas MD -[facility] Start: 01-18-2024 End: 01-18-2024 Admission to same day surgery center Dr. Marquise Barillas MD -Surgical Day Care Start: 01-18-2024 End: 01-18-2024 ambulatory Padmini Carrasco Facility:[facility] Start: 11-30-2023 Encounter for other preprocedural examination Marquise Barillas [facility] Start: 11-23-2023 End: 11-23-2023 ambulatory Padmini Carrasco Facility:[facility] Start: 11-09-2023 End: 11-09-2023 ambulatory Marquise Barillas Facility:[facility] Start: 10-27-2023 End: 10-27-2023 ambulatory Evgeny Jacobo Facility:[facility] Start: 10-24-2023 End: 10-24-2023 ambulatory Marquise Barillas Facility:[facility] Start: 04-29-2023 Non-patient / Non-visit Dr. Rambo Carrasco Work Phone: [facility] Work Phone: Start: 04-29-2023 Non-patient / Non-visit Dr. Rambo Carrasco Work Phone: [facility] Start: 04-29-2023 End: 04-29-[address] Ezekiel Carrasco Work Phone: [facility] Work Phone: Start: 04-29-2023 End: 04-29-[address] Ezekiel Carrasco Work Phone: [facility]-Cardiovascul ar Services Work Phone: Start: 02-28-2023 End: 02-28-[address] Ezekiel Carrasco Work Phone: [facility] Work Phone: Start: 02-28-2023 End: 02-28-[address] Ezekiel Carrasco Work Phone: [facility] Work Phone: Start: 02-10-2023 End: 02-10-[address] Ezekiel Carrasco Work Phone: [facility] Work Phone: Start: 01-27-2023 End: 01-27-[address] Ezekiel Carrasco Work Phone: [facility]-P[facility] Medicine [facility] Work Phone: Start: 12-27-2022 End: 12-27-[address] Ezekiel Carrasco Work Phone: [facility] Vascular Surgery Work Phone: Start: 12-22-2022 Non-patient / Non-visit Dr. Rambo Carrasco Work Phone: [facility] Start: 12-22-2022 End: 12-22-[address] Ezekiel Carrasco Work Phone: [facility] Work Phone: Start: 12-22-2022 End: 12-22-[address] Ezekiel Carrasco Work Phone: [facility]-Cardiovascul ar Services Work Phone: Start: 12-15-2022 End: 12-15-2022 ambulatory [facility] Work Phone: Start: 12-15-2022 End: 12-15-2022 Patient encounter procedure [facility] Work Phone: Start: 12-14-2022 End: 12-14-2022 ambulatory [facility] Work Phone: Start: 12-14-2022 End: 12-14-2022 Patient encounter procedure [facility] Start: 08-16-2022 End: 08-16-[address] Ezekiel Carrasco Work Phone: [facility] Work Phone: Start: 08-16-2022 End: 08-16-[address] Ezekiel Carrasco Work Phone: [facility]-Laboratory, [facility] Start: 07-28-2022 End: 07-28-[address] Ezekiel Carrasco Work Phone: [facility]-Pulmonary Medicine [facility] Work Phone: Start: 06-04-2022 Non-patient / Non-visit Dr. Rambo Carrasco Work Phone: [facility] Start: 06-04-2022 End: 06-04-[address] Ezekiel Carrasco Work Phone: [facility] Work Phone: Start: 06-04-2022 End: 06-04-[address] Ezekiel Carrasco Work Phone: [facility] Start: 05-28-2022 Non-patient / Non-visit Dr. Rambo Carrasco Work Phone: [facility] Start: 05-21-2022 Non-patient / Non-visit Dr. Rambo Carrasco Work Phone: [facility] Start: 05-21-[address] Dk Carrasco Work Phone: [facility] Start: 05-17-2022 End: 05-17-[address] Ezekiel Carrasco Work Phone: [facility] Work Phone: Start: 05-17-2022 End: 05-17-[address] Ezekiel Carrasco Work Phone: [facility]-Laboratory Start: 05-14-2022 Non-patient / Non-visit Dr. Rambo Carrasco Work Phone: [facility] Start: 05-14-[address] Dk Carrasco Work Phone: [facility] Start: 05-12-2022 Non-patient / Non-visit Dr. Rambo Carrasco Work Phone: [facility] Start: 05-11-2022 End: 05-11-[address] Ezekiel Carrasco Work Phone: [facility] Work Phone: Start: 05-11-2022 End: 05-11-[address] Ezekiel Carrasco Work Phone: [facility]-Pulmonary Services/Neurology Start: 05-07-2022 Non-patient / Non-visit Dr. Rambo Carrasco Work Phone: [facility] Start: 05-07-2022 End: 05-07-[address] Ezekiel Carrasco Work Phone: [facility] Work Phone: Start: 05-07-2022 End: 05-07-[address] Ezekiel Carrasco Work Phone: [facility] Start: 05-03-2022 Non-patient / Non-visit Dr. Rambo Carrasco Work Phone: [facility] Start: 05-03-2022 End: 05-03-[address] Ezekiel Carrasco Work Phone: [facility] Work Phone: Start: 05-03-2022 End: 05-03-[address] Ezekiel Carrasco Work Phone: [facility]-Pulmonary Services/Neurology Start: 04-30-2022 Non-patient / Non-visit Dr. Rambo Carrasco Work Phone: [facility] Start: 04-23-2022 Non-patient / Non-visit Dr. Rambo Carrasco Work Phone: [facility] Start: 04-16-2022 Non-patient / Non-[facility] Start: 04-09-2022 Non-patient / Non-visit Dr. Rambo Carrasco Work Phone: [facility] Start: 04-09-[address] Dk Carrasco [facility] Phone[facility] Start: 04-06-2022 End: 04-06-[address] Ezekiel Carrasco Work Phone: [facility] Work Phone: Start: 04-06-2022 End: 04-06-[address] Ezekiel Carrasco Work Phone: [facility] Start: 04-02-2022 End: 04-02-[address] Ezekiel Carrasco Work Phone: [facility] Work Phone: Start: 04-02-2022 End: 04-02-[address] Ezekiel Carrasco Work Phone: [facility]-Laboratory Start: 03-31-2022 Non-patient / Non-visit Dr. Rambo Carrasco Work Phone: [facility] Start: 03-31-2022 Non-patient / Non-visit Dr. Rambo Carrasco Work Phone: [facility] Start: 03-31-2022 Non-patient / Non-visit Dr. Rambo Carrasco Work Phone: [facility] Start: 03-31-2022 End: 03-31-[address] Ezekiel Carrasco Work Phone: [facility] Work Phone: Start: 03-31-2022 End: 03-31-[address] Ezekiel Carrasco Work Phone: [facility]-Cardiovascul ar Services Start: 03-30-2022 End: 03-30-[address] Ezekiel Carrasco Work Phone: [facility] Vascular Surgery Start: 03-30-2022 End: 03-30-[address] Ezekiel Carrasco Work Phone: [facility]-Pulmonary Medicine [facility] Start: 03-29-2022 End: 03-29-[address] Ezekiel Carrasco Work Phone: [facility] Work Phone: Start: 03-29-2022 End: 03-29-[address] Ezekiel Carrasco Work Phone: [facility] Start: 03-23-2022 End: 03-23-[address] Ezekiel Carrasco Work Phone: [facility] Start: 03-22-2022 End: 03-22-2022 Emergency department patient visit Dr. Ezekiel Carrasco Work Phone: [facility]-Emergency Department Start: 03-18-2022 End: 03-18-[address] Ezekiel Carrasco Work Phone: [facility] Work Phone: Start: 03-18-2022 End: 03-18-[address] Ezekiel Carrasco Work Phone: [facility] Start: 03-10-2022 End: 03-10-[address] Ezekiel Carrasco Work Phone: [facility] Work Phone: Start: 03-10-2022 End: 03-10-[address] Ezekiel Carrasco Work Phone: [facility] Start: 03-04-2022 Non-patient / Non-visit Dr. Rambo Carrasco Work Phone: [facility] Start: 03-03-2022 Non-patient / Non-visit Dr. Rambo Carrasco Work Phone: [facility] Start: 03-02-2022 Non-patient / Non-visit Dr. Rambo Carrasco Work Phone: [facility] Start: 03-02-2022 End: 03-04-2022 Evaluation and management of inpatient Dr. Ezekiel Carrasco Work Phone: [facility]-Progressive Care Unit Start: [address] Dk Carrasco Work Phone: [facility]-Physical Therapy Start: 02-25-2022 End: 02-25-[address] Ezekiel Carrasco Work Phone: [facility] Work Phone: Start: 02-25-2022 End: 02-25-[address] Ezekiel Carrasco Work Phone: [facility] Start: 02-03-2022 Orders Only Jamin hernandez MD Work Phone: Vascular Surg Dept Comment on above: Ruptured abdominal a ortic aneurysm (AAA), unspecified part (Primary Dx) Start: 01-25-2022 End: 01-25-[address] Ezekiel Carrasco Work Phone: [facility] Work Phone: Start: 01-25-2022 End: 01-25-[address] Ezekiel Carrasco Work Phone: [facility], Specimen Start: 01-25-2022 Telephone encounter Holly cervantes MD Work Phone: Cardiology Comment on above: Surgical Followup Start: 01-21-2022 End: 01-21-[address] Ezekiel Carrasco Work Phone: [facility] Work Phone: Start: 01-21-2022 End: 01-21-[address] Ezekiel Carrasco Work Phone: [facility] Start: 01-06-2022 End: 01-06-[address] Ezekiel Carrasco Work Phone: [facility] Start: 01-06-2022 End: 01-06-[address] Ezekiel Carrasco Work Phone: [facility] Start: 01-01-2022 Orders Only Jamin hernandez MD Work Phone: Vascular Surg Dept Comment on above: Abdominal aortic ane urysm (AAA) without rupture, unspecified part (Primary Dx); Edema of abdomen Appointment Start: 12-28-2021 ambulatory Venita Shah APRN.CNP Work Phone: Critical Care Start: 12-28-2021 End: 12-28-2021 Emergency department patient visit [facility]-Emergency Department Start: 12-22-2021 End: 12-22-2021 ambulatory [facility] Work Phone: Start: 12-22-2021 End: 12-22-2021 Patient encounter procedure [facility] Start: 09-23-2021 End: 09-23-[address] Ezekiel Carrasco Work Phone: [facility] Work Phone: Start: 09-23-2021 End: 09-23-[address] Ezekiel Carrasco Work Phone: [facility] Start: 08-20-2021 End: 08-20-[address] Ezekiel Carrasco Work Phone: [facility] Start: 07-07-2021 End: 07-07-[address] Ezekiel Carrasco Work Phone: [facility] Start: 05-11-2021 Telephone encounter Ezekiel Sepulveda MD Work Phone: Vascular Surg Dept Comment on above: Patient Update Start: 02-03-2021 Encounter for other preprocedural examination STACY GAUTHIER [facility] Start: 02-09-2019 Patient encounter status Dk Sepulveda MD Work Phone: [facility] Procedures Date Procedure Procedure Detail Performing Clinician Start: 09-07-2024 Us retroperitoneal r eal time w/image complete Anthony Rivers DO Work Phone: Start: 08-29-2024 BLADDER SCAN Stacy reilly MD Work Phone: Start: 08-29-2024 Urnls dip stick/tabl et rgnt auto w/o microscopy Stacy Gauthier MD Work Phone: Start: 08-02-2024 Urnls dip stick/tabl et rgnt auto w/o microscopy Stacy Gauthier MD Work Phone: Start: 07-31-2024 Ct abdomen & pelvis w/contrast material Codey Christianson MD Work Phone: Start: 07-31-2024 Ct thorax w/contrast material Codey Christianson MD Work Phone: Start: 06-28-[address] Padmini Carrasco MD Work Phone: Start: 06-27-2024 Transurethral resect ion of bladder neoplasm Dr. Padmini Carrasco MD Work Phone: Start: 06-21-[address] Dk Carrasco MD Work Phone: Start: 06-21-2024 Computed tomography of abdomen and pelvis with contrast Dr. Padmini Carrasco MD Work Phone: Start: 06-19-2024 Evaluation of diagno stic study results Dr. Padmini Carrasco MD Work Phone: Start: 05-16-[address] Padmini Carrasco MD Work Phone: Start: 05-16-2024 CT of abdomen and pe lvis without contrast Dr. Padmini Carrasco MD Work Phone: Start: 05-16-2024 Urnls dip stick/tabl et reagent auto microscopy Dr. Padmini Carrasco MD Work Phone: Start: 05-16-[address] Dk Carrasco MD Work Phone: Start: 05-10-[address] Padmini Carrasco MD Work Phone: Start: 05-10-2024 Prostate specific an tigen measurement Dr. Padmini Carrasco MD Work Phone: Comment on above: This test was perfor med using the [employer] tPSA method. Measured values of a patient sample can vary depending on the testing procedure used. PSA values determined on patient samples by different testing procedures cannot be used interchangeably. If there is a change in PSA assays while monitoring therapy, sequential testing should be performed to confirm baseline values. Start: 05-10-2024 Vitamin D, 25-hydrox y measurement Dr. Padmini Carrasco MD Work Phone: Comment on above: Vitamin D StatusDefi ciency: <20 ng/mL (50nmol/L)Insufficiency: 20-30 ng/mL (50-75 nmol/L)Sufficiency: 30-100 ng/mL (75-250 nmol/L)Toxicity: >100 ng/mL (>250 nmol/L) Start: 02-21-[address] Horacio Carrasco MD Work Phone: Start: 02-10-[address] Horacio Carrasco Work Phone: Start: 12-15-2022 CT of abdomen and pe lvis without contrast Start: 04-06-2022 X-ray of both feet Dr. Ezekiel Carrasco Work Phone: Start: 03-18-2022 Plain chest X-ray Dr. Quin Carrasco Work Phone: Start: 03-02-2022 Plain chest X-ray Dr. Quin Carrasco Work Phone: Start: 12-28-2021 History of coronary artery bypass grafting Hx of CABG Venita Pabloyessy HAWK Work Phone: Start: 12-28-2021 Computed tomography of abdomen and pelvis with intravenous contrast Start: 08-20-[address] Horacio Carrasco Work Phone: Start: 04-10-2019 Lipid 1996 panel - S tammy or Plasma Farheen oSmmers RN Start: 02-15-2019 Adult depression scr eening assessment Padmini Sepulveda MD Work Phone: Start: 02-12-2019 History of coronary artery bypass grafting H/O coronary artery bypass surgery Dr. Ezekiel Carrasco Work Phone: Comment on above: CABG x 1: SVG-RCA 02/12/2019; Start: 11-17-2018 Colonoscopy Ezekiel Sepulveda MD Work Phone: History of repair of inguinal hernia S/P inguinal hernia repair Dr. Padmini Carrasco MD Work Phone: Comment on above: [facility] History of repair of inguinal hernia S/P inguinal hernia repair Dr. Marquise Barillas MD Investigation of transfusion reaction Dr. Ezekiel Carrasco Work Phone: Legionella pneumophi la antigen assay Dr. Ezekiel Carrasco Work Phone: Respiratory microbia l culture Dr. Ezekiel Carrasco Work Phone: SARS-CoV-2 & FLU Ant igen (Rapid) Dr. Ezekiel Carrasco Work Phone: Urine culture Dr. Ezekiel Carrasco Work Phone: Urine culture Dr. Ezekiel Carrasco Work Phone: Plan of Treatment Date Care Activity Detail Author Start: 02-08-2028 Urine microalbumin profile DTa P,Tdap,Td Vaccine (2 - Td or Tdap) [facility] Start: 07-27-2027 Diabetes Screening Diabetes Screenin g [facility] Start: 09-05-2025 Complete blood count [facility] Start: 09-05-2025 Creatinine measurement Serum Creatin ine [facility] Start: 07-31-2025 Screening for malign ant neoplasm of lung Lung Cancer Screening [facility] Start: 07-26-2025 Complete blood count Hem[facility] Start: 07-26-2025 Creatinine measurement Serum Creatin ine [facility] Start: 01-03-2025 DIABETES SCREEN DIABETES SCREEN [facility] Start: 01-01-2025 DIABETES SCREEN DIABETES SCREEN [facility] Start: 12-28-2024 DIABETES SCREEN DIABETES SCREEN [facility] Start: 11-09-2024 End: 11-09-2024 ambulatory 11/09/2024 11:00 AM EDT Visit (SP) Office Hematology/Oncology [address] [place] [address] Anthony Rivers DO [address] [place] [address] 8 WK OV* Hematology/Oncology Comment on above: 8 WK OV* Start: 10-22-2024 End: 10-22-2024 Patient encounter procedure 10/22/2024 10:15 AM EDT Appointment Radiation Oncology [address] [place] [address] [facility] Radiation Oncology Comment on above: [facility] Start: 10-19-2024 End: 10-19-2024 ambulatory 10/19/2024 4:00 PM EDT [facility] Center Hematology/Oncology [address] [place] [address] Wstr, Lab/[place] [facility] [address] [place] [address] DC CADD* Hematology/Oncology Comment on above: DC CADD* Start: 10-19-2024 End: 10-19-2024 Patient encounter procedure 10/19/2024 10:15 AM EDT Appointment Radiation Oncology [address] [place] [address] [facility] Radiation Oncology Comment on above: [facility] Start: 10-18-2024 End: 10-18-2024 Patient encounter procedure 10/18/2024 10:15 AM EDT Appointment Radiation Oncology [address] [place] [address] [facility] Radiation Oncology Comment on above: [facility] Start: 10-17-2024 End: 10-17-2024 Patient encounter procedure 10/17/2024 10:15 AM EDT Appointment Radiation Oncology [address] [place] [address] [facility] Radiation Oncology Comment on above: [facility] Start: 10-16-2024 End: 10-16-2024 Patient encounter procedure Radiation Oncology Comment on above: Con Chemo Location: W-ON TREAT MENT VISIT Start: 10-15-2024 End: 10-15-2024 Patient encounter procedure 10/15/2024 10:15 AM EDT Appointment Radiation Oncology [address] [place] [address] [facility] Radiation Oncology Comment on above: Con Chemo Start: 10-15-2024 End: 10-15-2024 ambulatory 10/15/2024 9:00 AM EDT Infusion Center Hematology/Oncology [address] [place] [address] D22 CBC/CMP/QMO 5FU/2-2(PICC)ON XRT* Hematology/Oncology Comment on above: D22 CBC/CMP/QMO 5FU/ 2-2(PICC)ON XRT* Start: 10-12-2024 End: 10-12-2024 ambulatory 10/12/2024 11:30 AM EDT Visit (SP) Office Hematology/Oncology [address] [place], [place] [id number] James Oterona [address] [place] [address] 4 WK OV/CHEMO 10/15* MASCI Hematology/Oncology Comment on above: 4 WK OV/CHEMO 10/15* M ASCI Start: 10-12-2024 End: 10-12-2024 Patient encounter procedure 10/12/2024 10:15 AM EDT Appointment Radiation Oncology [address] [place], [place] [id number] [facility] Radiation Oncology Comment on above: Con Chemo Start: 10-11-2024 End: 10-11-2024 Patient encounter procedure 10/11/2024 10:15 AM EDT Appointment Radiation Oncology [address] [place], [place] [id number] [facility] Radiation Oncology Comment on above: Con Chemo Start: 10-10-2024 End: 10-10-2024 Patient encounter procedure 10/10/2024 10:15 AM EDT Appointment Radiation Oncology [address] [place], [place] [id number] [facility] Radiation Oncology Comment on above: Con Chemo Start: 10-09-2024 End: 10-09-2024 Patient encounter procedure Radiation Oncology Comment on above: Con Chemo Location: W-ON TREAT MENT VISIT Start: 10-09-2024 End: 10-09-2024 ambulatory Hematology/Oncology Comment on above: D15 CBC(PICC)/BHAVESH LEYVA CHANGE* D22 CBC/CMP(PICC)/DR ARANA CHANGE* Start: 10-08-2024 Influenza vaccination Influenza Vacc ine (#1) [facility] Start: 10-05-2024 End: 10-05-2024 Patient encounter procedure 10/05/2024 10:15 AM EDT Appointment Radiation Oncology [address] [place], [place] [id number] [facility] Radiation Oncology Comment on above: Con Chemo Start: 10-04-2024 End: 10-04-2024 Patient encounter procedure 10/04/2024 10:15 AM EDT Appointment Radiation Oncology [address] [place] [address] Con Chem[facility] Radiation Oncology Comment on above: Con Chemo Start: 10-03-2024 End: 10-03-2024 Patient encounter procedure 10/03/2024 10:15 AM EDT Appointment Radiation Oncology [address] [place] [address] Con Chemo Radiation Oncology Comment on above: Con Chemo Start: 10-02-2024 End: 10-02-2024 Patient encounter procedure Radiation Oncology Comment on above: Con Chemo Location: W-ON TREAT MENT VISIT Start: 10-01-2024 End: 10-01-2024 ambulatory 10/01/2024 11:45 AM EDT Infusion Center Hematology/Oncology [address] [place] [address] Wstr, Lab/[place] [facility] [address] [place] [address] D8 CBC(PICC)/DRESSING CHANGE* Hematology/Oncology Comment on above: D8 CBC(PICC)/DRESSIN G CHANGE* Start: 10-01-2024 End: 10-01-2024 Patient encounter procedure 10/01/2024 10:15 AM EDT Appointment Radiation Oncology [address] [place] [address] Con Chemo Radiation Oncology Comment on above: Con Chemo Start: 09-28-2024 End: 09-28-2024 ambulatory 09/28/2024 4:00 PM EDT Infusion Center Hematology/Oncology [address] [place] [address] Wstr, Lab/[place] [facility] [address] [place] [address] DC CADD* Hematology/Oncology Comment on above: DC CADD* Start: 09-28-2024 End: 09-28-2024 Patient encounter procedure 09/28/2024 10:15 AM EDT Appointment Radiation Oncology [address] [place] [address] Con Chemo Radiation Oncology Comment on above: Con Chemo Start: 09-27-2024 End: 09-27-2024 Patient encounter procedure 09/27/2024 10:15 AM EDT Appointment Radiation Oncology [address] [place] [address] Con Chemo Radiation Oncology Comment on above: Con Chemo Start: 09-26-2024 End: 09-26-2024 Patient encounter procedure 09/26/2024 10:15 AM EDT Appointment Radiation Oncology [address] [place] [address] Con Chemo Radiation Oncology Comment on above: Con Chemo Start: 09-25-2024 End: 09-25-2024 Patient encounter procedure Radiation Oncology Comment on above: Con Chemo Location: W-ON TREAT MENT VISIT Start: 09-24-2024 End: 09-24-2024 Patient encounter procedure 09/24/2024 1:00 PM EDT Appointment Radiation Oncology [address] [place] [address] Luigi Banks MD [address] [place] [address] con chemo tent time wants AM times Radiation Oncology Comment on above: con chemo tent time wants AM times Start: 09-24-2024 End: 09-24-2024 ambulatory 09/24/2024 11:00 AM EDT Infusion Center Hematology/Oncology [address] [place] [address] START QMO 5FU/1-2(PICC)ON XRT* Hematology/Oncology Comment on above: START QMO 5FU/1-2(ERIC REED)ON XRT* Start: 09-18-2024 End: 09-18-2024 Patient encounter procedure 09/18/2024 9:00 AM EDT Appointment Cat Scan [address] [place] [address] Malignant neoplasm of urinary bladder, unspecified site (HCC) [C67.9] Cat Scan Comment on above: Malignant neoplasm o f urinary bladder, unspecified site (HCC) [C67.9] Start: 09-17-2024 End: 09-17-2024 Patient encounter procedure Radiation Oncology Comment on above: con chemo tent time con chemo tent time wants AM times Start: 09-13-2024 End: 09-13-2024 Patient encounter procedure 09/13/2024 1:30 PM EDT Office Visit Urology [address] [place] [address] Tc Nath MD [address] [facility] [place] [address] CONSULT TO UROLOGY Urology Comment on above: CONSULT TO UROLOGY Start: 09-12-2024 End: 09-12-2024 ambulatory 09/12/2024 10:30 AM EDT [facility] Hematology/Oncology [address] [place], [place] [id number] Wstr, It Professional [facility] [address] [place], [place] [id number] CHEMO ED-5FU*rescheduled from 09/07 Hematology/Oncology Comment on above: CHEMO ED-5FU*resched uled from 09/07 Start: 09-07-2024 End: 09-07-2024 ambulatory Hematology/Oncology Comment on above: CHEMO ED CHEMO ED-5FU Start: 09-07-2024 End: 09-07-2024 Patient encounter procedure Radiology Comment on above: Malignant neoplasm o f overlapping sites of bladder (HCC) [C67.8] sim at this time. em pty bladder Start: 09-07-2024 End: 09-07-2024 Nursing evaluation of patient and report 09/07/2024 11:00 AM EDT Nurse Visit Radiation Oncology [address] [place], [place] [id number] Wstr, Nurse Radt [facility] [address] [place], [place] [id number] Location: W-NURSING Radiation Oncology Comment on above: Location: W-NURSING Start: 09-06-2024 End: 09-06-2024 Patient encounter procedure 09/06/2024 10:30 AM EDT Office Visit Radiation Oncology [address] [place], [place] [id number] Luigi Banks MD [address] [place] [address] Malignant neoplasm of urinary bladder, unspecified site (HCC) [C67.9] Radiation Oncology Comment on above: Malignant neoplasm o f urinary bladder, unspecified site (HCC) [C67.9] Start: 09-05-2024 End: 09-05-2024 ambulatory 09/05/2024 2:00 PM EDT Visit (SP) Office Hematology/Oncology [address] [place] [address] Anthony Rivers DO [address] [place] [address] transfer of care from [facility] Hematology/Oncology Comment on above: transfer of care fro [facility] Start: 09-05-2024 End: 12-05-2024 Chronic hepatitis differentiation between hepatitis B and C virus panel - Serum or Plasma [facility] Comment on above: Expected: 09/05/2024 , Expires: 12/05/2024 Start: 09-05-2024 End: 12-05-2024 DPYD/[id number] GENOTYPING PANEL [facility] Work Phone: Comment on above: Expected: 09/05/2024 , Expires: 12/05/2024 Start: 09-04-2024 End: 12-04-2024 Basic metabolic 2000 panel - Serum or Plasma BASIC METABOLIC PANEL Lab Routine Malignant neoplasm of urinary bladder, unspecified site (HCC) Other hydronephrosis Expected: 09/04/2024, Expires: 12/04/2024 [facility] Comment on above: Expected: 09/04/2024 , Expires: 12/04/2024 Start: 09-04-2024 End: 09-20-2025 CT Abdomen and Pelvis WO contrast CT ABD/PEL WO IVCON Radiology Routine Malignant neoplasm of urinary bladder, unspecified site (HCC) Other hydronephrosis Expected: 09/04/2024, Expires: 09/20/2025 [facility] Work Phone: Comment on above: Expected: 09/04/2024 , Expires: 09/20/2025 Start: 08-21-2024 End: 08-21-2024 Admission to same day surgery center 08/21/2024 3:25 PM EDT - 08/21/2024 4:40 PM EDT Surgery [address] [address] Stacy Gauthier MD [address] [place] [address] CYSTOSCOPY RIGID [facility] Comment on above: CYSTOSCOPY RIGID Start: 08-21-2024 Subsequent hospital visit by physician 08/21/2024 3:25 PM EDT Hospital Encounter [address] [address] Stacy Gauthier MD [address] [place] [address] Malignant neoplasm of urinary bladder, unspecified site (HCC) [C67.9], Gross hematuria [R31.0] [facility] Comment on above: Malignant neoplasm o f urinary bladder, unspecified site (HCC) [C67.9], Gross hematuria [R31.0] Start: 08-21-2024 End: 08-21-2024 Cysto w/insert ureteral stent MD OR Start: 08-21-2024 End: 08-21-2024 Cysto w/removal of tumors small MD OR Start: 08-21-2024 End: 08-21-2024 Cystourethroscopy MD OR Start: 08-16-2024 End: 11-15-2024 Bacteria identified in Urine by Culture BACTERIAL CULTURE, URINE Microbiology Routine Hematuria, gross Expected: 08/16/2024, Expires: 11/15/2024 [facility] Comment on above: Expected: 08/16/2024 , Expires: 11/15/2024 Start: 08-16-2024 End: 08-16-2024 ambulatory 08/16/2024 10:00 AM EDT PAT Pre Surgical Testing [address] [id number] PAT CYSTOSCOPY TRANS URETHRAL RESECTION OF A BLADDER TUMOR LEFT URETERAL STENT INSERTION Pre Surgical Testing Comment on above: PAT CYSTOSCOPY TRANS URETHRAL RESECTION OF A BLADDER TUMOR LEFT URETERAL STENT INSERTION Start: 08-02-2024 End: 08-02-2024 Patient encounter procedure 08/02/2024 2:15 PM EDT Office Visit Urology [address] [place] [address] Stacy Gauthier MD [address] [place] [address] bladder cancer Urology Comment on above: bladder cancer Start: 07-31-2024 End: 07-31-2024 Patient encounter procedure Cat Scan Comment on above: CT ABD/PEL W IVCON Start: 06-28-2024 Chemotherapy care management [facility] Start: 06-28-2024 End: 06-28-2024 Patient discharge [facility] Start: 06-28-2024 Inhalation therapy procedure [facility] Start: 06-27-2024 Measuring intake and output [facility] Start: 06-27-2024 Ambulation therapy management [facility] Start: 06-27-2024 Deep breathing and coughing exercises [facility] Start: 06-27-2024 Incentive spirometry [facility] Start: 06-27-2024 Oxygen therapy [facility] Start: 06-27-2024 Provision of activit y privileges [facility] Start: 06-27-2024 Assessment of risk o f venous thromboembolism [facility] Start: 06-27-2024 End: 06-27-2024 Following clinical pathway protocol [facility] Start: 06-27-2024 Taking patient vital signs [facility] Start: 06-27-2024 Vital signs measurements [facility] Start: 06-27-2024 End: 06-27-2024 [facility] Start: 06-27-2024 Admission procedure [facility] Start: 06-27-2024 Anes transurethral resection of bladder tumor ANESTH BLADDER TUMOR SURG [facility] Start: 06-27-2024 Cystourethroscopy w/ dest &/rmvl tumor large CYSTOSCOPY AND TREATMENT [facility] Start: 06-27-2024 Transurethral resect ion of bladder neoplasm Cysto,Transurethal Resec Bladder,Olympus (Not Applicable) [facility] Start: 06-27-2024 Ambulation without limitation [facility] Start: 06-27-2024 Medication education [facility] Start: 06-27-2024 Patient discharge [facility] Start: 06-27-2024 Planned voiding [facility] Start: 06-27-2024 Taking patient vital signs [facility] Start: 06-27-2024 [facility] Start: 06-27-2024 [facility] Start: 05-16-2024 End: 05-17-2024 [facility] Start: 04-09-2024 Lipid panel Lipid Screening [facility] Start: 04-09-2024 LIPID SCREEN LIPID SCREEN [facility] Start: 02-08-2024 Advance Directive Discussion Advance Directive Discussion [facility] Start: 01-18-2024 Anesthesia hernia re pair lower abdomen nos ANESTH REPAIR OF HERNIA [facility] Start: 01-18-2024 Rpr 1st ingun hrna a ge 5 yrs/> reducible PRP I/SHILPI INIT REDUC >5 YR [facility] Start: 01-18-2024 Patient discharge [facility] Start: 10-09-2023 Covid-19 Vaccine () Covid-19 Vaccine () [facility] Start: 02-03-2023 BP CONTROLLED (<130/80) BP CONTROLLE D (<130/80) [facility] Start: 05-11-2022 Exercise tolerance test [facility] Start: 05-03-2022 Measurement of respi ratory function [facility] Start: 04-09-2022 DIABETES SCREEN DIABETES SCREEN [facility] Start: 03-30-2022 Patient referral [facility] Work Phone: Start: 03-04-2022 Patient discharge [facility] Start: 03-03-2022 Referral to occupati onal therapist [facility] Start: 03-03-2022 Referral to service [facility] Start: 03-03-2022 Referral to service [facility] Start: 03-02-2022 Following clinical p athway protocol [facility] Start: 03-02-2022 Assessment of risk o f venous thromboembolism [facility] Start: 03-02-2022 Catheterization of vein [facility] Start: 03-02-2022 Elevation of head of bed [facility] Start: 03-02-2022 Incentive spirometry [facility] Start: 03-02-2022 Inhalation therapy procedure [facility] Start: 03-02-2022 Insertion of cathete r into peripheral vein [facility] Start: 03-02-2022 Oxygen therapy [facility] Start: 03-02-2022 Patient education [facility] Start: 03-02-2022 Physiotherapy of chest [facility] Start: 03-02-2022 Providing care accor ding to standard [facility] Start: 03-02-2022 Referral to service [facility] Start: 03-02-2022 [facility] Start: 03-02-2022 Verification routine [facility] Start: 03-02-2022 Following clinical p athway protocol [facility] Start: 03-02-2022 Legionella pneumophi la Ag [Presence] in Urine [facility] Start: 03-02-2022 Streptococcus pneumo niae antigen assay [facility] Start: 03-02-2022 [facility] Start: 03-02-2022 Admission procedure [facility] Start: 03-02-2022 End: 03-02-2022 [facility] Start: 03-02-2022 Patient referral to dietitian [facility] Start: 02-07-2022 ADVANCE DIRECTIVE DISCUSSION ADVANCE DIRECTIVE DISCUSSION [facility] Start: 02-07-2022 DEPRESSION ASSESSMENT DEPRESSION ASS ESSMENT [facility] Start: 10-08-2021 Influenza vaccination INFLUENZA (#1) [facility] Start: 02-07-2021 ADVANCE DIRECTIVE DISCUSSION ADVANCE DIRECTIVE DISCUSSION [facility] Start: 02-07-2021 DEPRESSION ASSESSMENT DEPRESSION ASS ESSMENT [facility] Start: 04-09-2020 Hepatitis B surface antibody level LDL CHOLESTEROL [facility] Start: 02-16-2020 Adult depression scr eening assessment DEPRESSION SCREENING [facility] Start: 11-18-2019 Colonoscopy COLONOSCOPY [facility] Start: 11-18-2019 COLORECTAL CANCER SCREENING COLORECTAL CANCER SCREENING [facility] Start: 11-18-2019 Screening for malign ant neoplasm of colon [facility] Start: 03-10-2015 Medicare Annual Well ness Visit Medicare Annual Wellness Visit [facility] Start: 2015 PNEUMOVAX AGE 65 AND OVER WITH 5YR LOOKBACK (#1) PNEUMOVAX AGE 65 AND OVER WITH 5YR LOOKBACK (#1) [facility] Start: 02-07-2015 Medicare Annual Well ness Visit Medicare Annual Wellness Visit [facility] Start: 2010 RSV Vaccine (1 - Ris k 60-74 years 1-dose series) RSV Vaccine (1 - Risk 60-74 years 1-dose series) [facility] Start: 2005 Influenza vaccination LUNG CANCER [facility] Start: 02-27-2000 Influenza vaccination LUNG CANCER [facility] Start: 02-27-2000 SHINGRIX VACCINE (1 of 2) SANCHEZ GRIX VACCINE (1 of 2) [facility] Start: 1995 COLOGUARD (FIT-DNA) COLOGUARD (FIT-D NA) [facility] Start: [address] COLONOGRAPHY [facility] Start: 1995 FECAL OCCULT BLOOD FECAL OCCULT BLOO D [facility] Start: 1995 Screening for malign ant neoplasm of colon [facility] Start: 1995 SIGMOIDOSCOPY SIGMOIDOSCOPY [facility] Start: 02-27-1980 Zoledronic acid therapy ALPHA- 1 ANTITRYPSIN DEFICIENCY SCREENING [facility] Start: 1969 Shingrix Vaccine (1 of 2) Sanchez grix Vaccine (1 of 2) [facility] Start: 1969 Urine microalbumin profile DTAP,TDAP ,TD (1 - Tdap) [facility] Start: 02-27-1968 ANNUAL PCP TEAM COPY CLERK AINSLEY DISEASE VISIT ANNUAL PCP TEAM CHRONIC DISEASE VISIT [facility] Start: 02-27-1968 Anxiety Screening Anxiety Screening [facility] Start: 02-27-1968 BP CONTROLLED (<130/80) BP CONTROLLE D (<130/80) [facility] Start: 02-27-1968 Depression Screening Depression Scre ening [facility] Start: 02-27-1968 HEPATITIS C SCREENING HEPATITIS C [facility] Start: 02-27-1968 Hepatitis C screening Hepatitis C [facility] Start: 02-27-1960 Diabetic foot examination Diabetic F oot Exam [facility] Start: 02-27-1960 Glaucoma screening Dilated Retinal E xam [facility] Start: 02-27-1960 Hepatitis B screening Urine Albumin:Creatinine Ratio [facility] Start: 02-27-1956 PNEUMOCOCCAL: 65+ (1 - PCV) PNEUMOCOCCAL: 65+ (1 - PCV) [facility] Start: 1955 COVID-19 VACCINE (1) COVID-19 VACCIN E (1) [facility] Start: 1955 Hemoglobin A1c measurement HbA1C [facility] Start: 1950 COVID-19 VACCINE (#1) COVID-19 VACCI NE (#1) [facility] Bacteria identified in Sputum by Respiratory culture [facility] Blood chemistry [facility] CT Abdomen and Pelvi s WO contrast CT ABD/PEL WO IVCON Radiology Routine Malignant neoplasm of urinary bladder, unspecified site (HCC) Other hydronephrosis 09/18/2024 9:19 AM EDT [facility] Work Phone: CT Chest [facility] Guidance for percuta neous placement of nephrostomy tube of Kidney IR NEPHROSTOMY TUBE PLACE Radiology Routine Malignant neoplasm of overlapping sites of bladder (HCC) ROSALIE (acute kidney injury) Hydroureter on left Ordered: 09/05/2024 [facility] Comment on above: Ordered: 09/05/2024 H&P for surgery H&P FOR SURGERY Procedures Routine Malignant neoplasm of urinary bladder, unspecified site (HCC) Hematuria, gross Ordered: 08/13/2024 [facility] Work Phone: Comment on above: Ordered: 08/13/2024 Patient Education [facility] Work Phone: Patient referral [facility] Work Phone: Respiratory Culture Respiratory Culture [facility] UA DIP, URINE (POC) UA DIP, URIN E (POC) Lab Routine Malignant neoplasm of urinary bladder, unspecified site (HCC) Nocturia Hematuria, gross Ordered: 08/02/2024 [facility] Work Phone: Comment on above: Ordered: 08/02/2024 Urine culture [facility] End: 01-01-2023 US ABD AORTA COMPLETE VAS LAB US ABD AORTA COMPLETE VAS LAB Vascular Lab Routine Abdominal aortic aneurysm (AAA) without rupture, unspecified part Edema of abdomen 1 Occurrences starting 01/01/2022 until 01/01/2023 [facility] Work Phone: Comment on above: 1 Occurrences starti ng 01/01/2022 until 01/01/2023 [facility] End: 10-05-2025 US Kidney - bilateral and Urinary bladder US KIDNEY/BLADDER Radiology STAT Malignant neoplasm of overlapping sites of bladder (HCC) ROSALIE (acute kidney injury) Hydroureter on left 1 Occurrences starting 09/05/2024 until 10/05/2025 [facility] Work Phone: Comment on above: 1 Occurrences starti ng 09/05/2024 until 10/05/[address] & VAS [facility] Immunizations Immunization Date Immunization Notes Care Provider Fa cility 01-11-2024 influenza virus vacc ine, unspecified formulation Codey Christianson MD Work Phone: [facility] Payers Date Payer Category Payer Self-pay [id number] 2015 Medicare MEDICARE MEDICAR E A AND B [id number] 2015-Present [phone] [address] [address] [place] [address] Medicare [id number] 2015 Medicare [id number] 2015 Medicare [id number] 2005 Unknown [facility] [id number] 2005-Present [phone] [address] [place] [address] [facility] [id number] Unknown [facility] *DO NOT USE* [id number] Unknown [id number] Unknown [id number] Unknown [id number] [id number] Unknown [id number] [id number] Unknown [id number] [id number] Unknown [id number] [id number] Unknown [id number] 2.840.1.120058.3.579.2.462 Unknown [id number] [id number] Unknown [id number] [id number] Unknown [id number] [id number] Unknown [id number] 2.840.1.306095.3.579.2.462 Unknown [id number] [id number] Unknown [id number] [id number] Unknown [id number] [id number] Unknown [id number] [id number] Unknown [id number] [id number] Unknown [id number] [id number] Unknown [id number] [id number] Unknown [id number] [id number] Unknown [id number] Social History Date Type Detail Facility Tobacco smoking stat us NHIS Ex-smoker [facility] Work Phone: End: 01-30-2019 History of tobacco use Current smoker [facility] Work Phone: Start: 01-30-1979 End: 01-30-2019 History of tobacco use Cigarette Smoker [facility] Work Phone: Start: 04-17-2021 End: 09-05-2024 Alcohol intake Current non-drinker of alcohol (finding) [facility] Start: 08-11-2012 End: 12-28-2021 Tobacco Comment started smoking 15yo, usually 1 PPD [facility] Start: 1950 Sex Assigned At Not on file [facility] Start: 04-07-2021 End: 12-28-2021 Exposure to SARS-CoV-2 (event) Not sure [facility] Start: 07-07-2021 End: 02-28-2023 Tobacco smoking status NHIS Unknown if ever smoked [facility] Start: 11-14-2018 Cigarettes [facility] Start: 1950 Sex Assigned At Male [facility] Start: 01-30-1979 End: 08-02-2024 Tobacco smoking status NHIS Smokes tobacco daily [facility] Work Phone: Start: 12-28-2021 End: 07-31-2024 Cigarettes smoked current (pack per day) - Reported 1 [facility] Start: 12-28-2021 End: 08-02-2024 Tobacco use and exposure Smokeless tobacco non-user [facility] Work Phone: Start: 05-16-2024 End: 05-17-2024 Sex Male (finding) [facility] Start: 02-03-2022 End: 07-31-2024 Tobacco use panel [facility] Start: 01-09-2012 PHQ2 Score 0 [facility] Start: 09-12-2024 Gender identity Identifies as male gender (finding) [facility] Start: 09-12-2024 Sexual orientation Heterosexual (khang celaya) [facility] Medical Equipment Procedure Code Equipment Code Equipment Origin al Text Equipment Identifier Dates Repair, hernia, inguinal, with mesh insertion ([id number]) Extra-gynaecological surgical mesh, synthetic polymer, non-bioabsorbable ()[id number] FDA Start: 11-09-2023 Repair, hernia, inguinal, with mesh insertion ([id number]) Extra-gynaecological surgical mesh, synthetic polymer, non-bioabsorbable ()[id number] FDA Start: 01-18-2024 [place] Thk1.65mm P tfe 4x.5in Cardiovascular Sterile - [id number] Start: 02-12-2019 Valve Aort 23mm Crp-Ed Thfx - [id number] Start: 02-12-[address] us Vascutek 18/9mm 2 Branch Gelatin 45cm Vascular Main Leg - [id number] Start: 12-28-2021 Goals Date Patient Goal Desired Activity /State Functional Status Date Assessment Result Facility 06-28-2024 Functional status Ambulates [facility] Work Phone: 03-04-2022 Functional status [facility]ulates [facility] Work Phone: 01-03-2022 Are you deaf, or do you have serious difficulty hearing No 01/03/2022 12:55 PM Christina Bright RN No [facility] 01-03-2022 Are you blind, or do you have serious difficulty seeing, even when wearing glasses No 01/03/2022 12:55 PM Christina Bright RN No [facility] 02-20-2019 Do you have serious difficulty walking or climbing stairs No 02/20/2019 1:06 PM Terrie Keys (Rn), RN No [facility] 02-20-2019 Do you have difficul ty dressing or bathing No 02/20/2019 1:06 PM Terrie KeysRn), RN No [facility] 02-20-2019 Because of a physica l, mental, or emotional condition, do you have difficulty doing errands alone such as visiting a physician's office or shopping No 02/20/2019 1:06 PM Trerie Keys (Rn), RN No [facility] Mental Status Date Assessment Result Facility 06-28-2024 Cognitive function Level Of Cons ciousness Awake;Alert;Appropriate;Fol lows Commands [facility] Work Phone: 06-27-2024 Cognitive function Voice/Name [facility] Work Phone: 06-27-2024 Cognitive function Voice/Name [facility] Work Phone: 01-18-2024 Cognitive function Voice/Name [facility] Work Phone: 03-03-2022 Cognitive function Voice/Name [facility] Work Phone: 02-20-2019 Because of a physica l, mental, or emotional condition, do you have serious difficulty concentrating, remembering, or making decisions No 02/20/2019 1:06 PM Terrie KeysRn), RN No [facility] Clinical Notes 02-12-2019 to 09-18-2024 Reef Sammi Avery, (R) - 09/18/2024 9:00 AM Sydni Beasley RDMS - 09/07/2024 1:00 PM Unruly Galvan RN - 09/07/2024 10:57 AM Luigi Hernandez MD - 09/07/2024 12:00 AM EDT Note Date & Type Note Facility 09-18-2024 History of Presen t illness Narrative Radiology Service Progress Note PATIENT NAME: Abelardo Ivory DATE OF SERVICE: September 18, 2024 TIME: 1:46 PM PATIENT IDENTITY VERIFICATION COMPLETED USING TWO (2) IDENTIFIERS: Name and Date of confirmed by patient verbally. FALL SCREENING: Has the patient had 2 falls in the last year or 1 fall with injury or currently using an Ambulatory Assistive Device (Walker, Cane, Wheelchair, Crutches, etc.)? No PATIENT GENDER DATA: Assigned male at PATIENT RELEVANT IMPLANT DATA REVIEWED: Yes PATIENT PRESENTS WITH AN IMPLANTABLE OR ATTACHED MOTOR VEHICLE DISPATCHER: No RADIOLOGY DEPARTMENT: CT; Exam(s) Completed: Abdomen/Pelvis PERIPHERAL IV DATA: Not applicable SIGNED BY: RT Lenin(Manoj) September 18, 2024 1:46 PM documented in this encounter [facility] 09-18-2024 Note HNO ID: [id number] Author: SAMMI NUNEZ RT(R) Service: ? Author Type: Customer Solutions Architect Type: Progress Notes Filed: 09/18/2024 13:47 Note Text: Radiology Service Progress Note PATIENT NAME: Abelardo Ivory DATE OF SERVICE: September 18, 2024 TIME: 1:46 PM PATIENT IDENTITY VERIFICATION COMPLETED USING TWO (2) IDENTIFIERS: Name and Date of confirmed by patient verbally. FALL SCREENING: Has the patient had 2 falls in the last year or 1 fall with injury or currently using an Ambulatory Assistive Device (Walker, Cane, Wheelchair, Crutches, etc.)? No PATIENT GENDER DATA: Assigned male at PATIENT RELEVANT IMPLANT DATA REVIEWED: Yes PATIENT PRESENTS WITH AN IMPLANTABLE OR ATTACHED MOTOR VEHICLE DISPATCHER: No RADIOLOGY DEPARTMENT: CT; Exam(s) Completed: Abdomen/Pelvis PERIPHERAL IV DATA: Not applicable SIGNED BY: RT Lenin(Manoj) September 18, 2024 1:46 PM [facility] 09-12-2024 Note HNO ID: [id number] Author: VIVIENNE GU RN Service: ? Author Type: Registered Nurse Type: Progress Notes Filed: 09/12/2024 16:33 Note Text: This visit was completed by phone. It Professional Pre Chemo Patient identified by name and date of . YES Confirmed date and time for chemotherapy ? YES Other appointments (labs, imaging) discussed? 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 NO Described the infusion room and what to expect. (What to wear, what to bring [iPad, books] amount of time treatment can take, meals and CC options for food) YES Note: Discussed whether the patient can eat prior to labs and treatment. YES Who is driving you to and from treatment? Family member Discussed why it is important to bring someone with you. Yes, for the first treatment Resources discussed (music therapy, Art therapy, pet therapy, etc.) NO Education on chemotherapy (drug, side effects) discussed and that the patient will be receiving a C1D1 call within 7 days of treatment. YES Other topics discussed, interventions needed: n/a Vivienne Gu RN ONCOLOGY PATIENT EDUCATION NOTE TOPIC: Chemotherapy, Medications: 5FU/mitomycin patient called today for education for treatment of Bladder Cancer Anticipated/Scheduled start date: 09/24 READINESS TO LEARN: COGNITIVE ABILITY: Alert and oriented MOTIVATION TO LEARN: Interested FAMILY SUPPORT: Unable to assess - Family not present INSTRUCTION PROVIDED TO: Patient INSTRUCTION PROVIDED BY: Nurse Coordinator PATIENT LEARNS BEST BY: Multiple Methods FACTORS AFFECTING LEARNING: None PHYSICAL LIMITATIONS AFFECTING LEARNING: None LEARNING RESPONSE METHOD OF INSTRUCTION: Individual instruction Written instruction/Handouts Verbal instruction PATIENT/FAMILY RESPONSE: Verbalizes understanding of: CHEMOTHERAPY-Regimen, toxicity and side effects FOLLOW UP PLAN: Patient instructed to call with any further issues Recommend - Recommend continued instruction and follow up as directed Follow up phone call. Contact information given. SUPPLEMENTAL MATERIAL: Written material was provided at this visit with the following information: - Chemotherapy education was provided by a pharmacist NO - Side effect management information was provided/discussed including but not limited to: anemia, appetite changes, arthralgia, bowel habit changes, diet, electrolyte disturbances, fatigue, hair loss, infection, mouth hygiene, mucositis, myalgia, nausea/vomitting, neutropenia, rash, skin changes, taste changes, thrombocytopenia YES - Provided important phone numbers and contacts during and after hours. YES - Provided information on symptoms that require immediate assistance. YES - Provided Chemotherapy when to call handouts YES - Preventing infection. YES - Treatment schedule and confirmation of appointment times. YES - Available support groups. YES - The importance of contraception during the course of chemotherapy YES - Neutropenic fever protocol discussed with patient, which included the importance of reporting any fever of 100.4F (38.0C) or greater to the healthcare team as noted on the provided wallet card and/or magnet. YES Time Spent: 50 minutes REFERRAL (RECOMMENDATION): Social Work Vivienne Gu RN [facility] 09-07-2024 History of Presen t illness Narrative Radiology Service Progress Note PATIENT NAME: Abelardo Ivory DATE OF SERVICE: September 07, 2024 TIME: 2:59 PM PATIENT IDENTITY VERIFICATION COMPLETED USING TWO (2) IDENTIFIERS: Name and Date of confirmed by patient verbally. FALL SCREENING: Has the patient had 2 falls in the last year or 1 fall with injury or currently using an Ambulatory Assistive Device (Walker, Cane, Wheelchair, Crutches, etc.)? No PATIENT GENDER DATA: Assigned male at PATIENT RELEVANT IMPLANT DATA REVIEWED: Not Applicable PATIENT PRESENTS WITH AN IMPLANTABLE OR ATTACHED MOTOR VEHICLE DISPATCHER: No RADIOLOGY DEPARTMENT: Ultrasound PERIPHERAL IV DATA: Not applicable SIGNED BY: Sydni Sanchez RDMS RVT September 07, 2024 2:59 PM documented in this encounter [facility] 09-07-2024 Note HNO ID: [id number] Author: SYDNI SANCHEZ RDMS Service: ? Author Type: Rim Technician Type: Progress Notes Filed: 09/07/2024 14:59 Note Text: Radiology Service Progress Note PATIENT NAME: Abelardo Ivory DATE OF SERVICE: September 07, 2024 TIME: 2:59 PM PATIENT IDENTITY VERIFICATION COMPLETED USING TWO (2) IDENTIFIERS: Name and Date of confirmed by patient verbally. FALL SCREENING: Has the patient had 2 falls in the last year or 1 fall with injury or currently using an Ambulatory Assistive Device (Walker, Cane, Wheelchair, Crutches, etc.)? No PATIENT GENDER DATA: Assigned male at PATIENT RELEVANT IMPLANT DATA REVIEWED: Not Applicable PATIENT PRESENTS WITH AN IMPLANTABLE OR ATTACHED MOTOR VEHICLE DISPATCHER: No RADIOLOGY DEPARTMENT: Ultrasound PERIPHERAL IV DATA: Not applicable SIGNED BY: Sydni Sanchez RDMS RVT September 07, 2024 2:59 PM [facility] 09-07-2024 Note HNO ID: [id number] Author: UNRULY DIAZ RN Service: ? Author Type: Registered Nurse Type: Progress Notes Filed: 09/07/2024 10:59 Note Text: Radiation Therapy - Patient Education Note PATIENT NAME: Abelardo Ivory PATIENT September 07, 2024 [facility] FACILITY/LOCATION: [place] READINESS TO LEARN Cognitive Ability: Alert and oriented Motivation to learn: Eager Interested Family Support: Unable to assess - Family not present Instruction provide to: Patient Patient learns best by: Multiple Methods Factors effecting learning: None Physical limitations effecting learning: None LEARNING RESPONSE Diagnosis: Pt simulated today for radiation therapy to multiple sites: bladder/prostate. Education Topic/Teaching Points: Radiation therapy, Side effects, and OTV: Method of instruction: Teach Back skin care Individual instruction Written instruction/Handouts Verbal instruction Patient /Family response: Patient verbalized understanding of radiation treatments, side effects, OTV, and transportation. Follow-up plan: Patient instructed to call with any further issues Contact information given. Supplemental material: Informational handouts on Department phone list, Bladder function, Diarrhea, Fatigue, and Jennifer instructions, XRT sheet and Aquaphor handout. Referral (recommendation): None, Pt denied need for social work, van service, and miller wood flour. Patient has an Onbody or Implanted device: No Signed by: Unruly Diaz RN [facility] 09-07-2024 History of Presen t illness Narrative Radiation Therapy - Patient Education Note PATIENT NAME: Abelardo Ivory PATIENT September 07, 2024 [facility] FACILITY/LOCATION: [place] READINESS TO LEARN Cognitive Ability: Alert and oriented Motivation to learn: Eager Interested Family Support: Unable to assess - Family not present Instruction provide to: Patient Patient learns best by: Multiple Methods Factors effecting learning: None Physical limitations effecting learning: None LEARNING RESPONSE Diagnosis: Pt simulated today for radiation therapy to multiple sites: bladder/prostate. Education Topic/Teaching Points: Radiation therapy, Side effects, and OTV: Method of instruction: Teach Back skin care Individual instruction Written instruction/Handouts Verbal instruction Patient /Family response: Patient verbalized understanding of radiation treatments, side effects, OTV, and transportation. Follow-up plan: Patient instructed to call with any further issues Contact information given. Supplemental material: Informational handouts on Department phone list, Bladder function, Diarrhea, Fatigue, and Jennifer instructions, XRT sheet and Aquaphor handout. Referral (recommendation): None, Pt denied need for social work, van service, and miller wood flour. 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 AREA:Bladder. PATIENT POSITION: Supine. CONTRAST: None PROTOCOL: None BLOCKING: Custom blocking to be determined at treatment planning. FIXATION DEVICE: In order to achieve accurate and reproducible treatments, the patient is to be immobilized with pillows and vac bag. PROCEDURE: A time-out was conducted and recorded by the therapist. Patient was simulated on the CT scanner for external beam radiation therapy. Treatment site was marked by the simulation therapist. ASSESSMENT/PLAN: Patient tolerated simulation procedure well. Treatments will be initiated after treatment planning. The patient is scheduled for a verification simulation on the treatment machine to ensure proper set-up and field arrangement is correct prior to the first treatment of primary and boost canela if applicable. Electronically Signed Luigi Banks M.D./jase 51:56 PM documented in this encounter [facility] 09-07-2024 History of Presen t illness Narrative ABELARDO IVORY [id number] 09/07/2024 [facility] - Department of Radiation Oncology Treatment Planning Note For reasons stated in the consult note, Abelardo Ivory is a candidate for radiation therapy. Based on review and interpretation of the relevant diagnostic studies together with the exam findings, Abelardo Ivory was simulated on 09/07/2024 at which time the target volume and/or requisite canela were delineated, as indicated in the simulation note, to be treated according to the prescription. The treatment target and organs at risk were contoured on the simulation scan. Special consideration to these and other structures was given in light of the potential for increased toxicities of combined chemoradiation. After reviewing multiple treatment plans with dosimetry, the best plan was approved to deliver the prescribed course of radiation to the target area using inverse planning to allow for the best isodose distribution, treating to the 98.8% isodose line with 10 MV / and 2 canela. Custom MLC for IMRT were the treatment device(s) used to shape/modify the beams. Limiting dose to normal tissue was confirmed upon review of the calculated dose volume histogram. IMRT planning was used because it best met the dose/volume constraints for the organs at risk for this patient, better than what could be achieved using conventional or 3D planning. The specific dose requirements for the PTV, organs at risk and dose-volume histograms are contained in this treatment plan and/or elsewhere in the medical record. A completed summary of this plan dated 09/18/2024 incorporated herein by reference includes dose, beam arrangements, energy, blocking, isodose distribution, and/or ports and DVH. Electronically Signed Luigi Banks M.D. 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 AREA:Bladder. PATIENT POSITION: Supine. CONTRAST: None PROTOCOL: None BLOCKING: Custom blocking to be determined at treatment planning. FIXATION DEVICE: In order to achieve accurate and reproducible treatments, the patient is to be immobilized with pillows and vac bag. PROCEDURE: A time-out was conducted and recorded by the therapist. Patient was simulated on the CT scanner for external beam radiation therapy. Treatment site was marked by the simulation therapist. ASSESSMENT/PLAN: Patient tolerated simulation procedure well. Treatments will be initiated after treatment planning. The patient is scheduled for a verification simulation on the treatment machine to ensure proper set-up and field arrangement is correct prior to the first treatment of primary and boost canela if applicable. Electronically Signed Luigi Banks M.D./ 51:56 PM [facility] 09-07-2024 Note HNO ID: [id number] Author: LUIGI BANKS MD Service: Radiation Oncology Author Type: Physician Type: Progress Notes Filed: 09/18/2024 14:21 Note Text: ABELARDO IVORY [id number] 09/07/2024 [facility] [place] [facility] - Department of Radiation Oncology Treatment Planning Note For reasons stated in the consult note, Abelardo Ivory is a candidate for radiation therapy. Based on review and interpretation of the relevant diagnostic studies together with the exam findings, Abelardo Ivory was simulated on 09/07/2024 at which time the target volume and/or requisite canela were delineated, as indicated in the simulation note, to be treated according to the prescription. The treatment target and organs at risk were contoured on the simulation scan. Special consideration to these and other structures was given in light of the potential for increased toxicities of combined chemoradiation. After reviewing multiple treatment plans with dosimetry, the best plan was approved to deliver the prescribed course of radiation to the target area using inverse planning to allow for the best isodose distribution, treating to the 98.8% isodose line with 10 MV / and 2 canela. Custom MLC for IMRT were the treatment device(s) used to shape/modify the beams. Limiting dose to normal tissue was confirmed upon review of the calculated dose volume histogram. IMRT planning was used because it best met the dose/volume constraints for the organs at risk for this patient, better than what could be achieved using conventional or 3D planning. The specific dose requirements for the PTV, organs at risk and dose-volume histograms are contained in this treatment plan and/or elsewhere in the medical record. A completed summary of this plan dated 09/18/2024 incorporated herein by reference includes dose, beam arrangements, energy, blocking, isodose distribution, and/or ports and DVH. Electronically Signed Luigi Banks M.D. 52:21 PM [facility] 09-06-2024 Telephone encounter Note See routing comment below. I will take care of the PICC line when appropriate to schedule. The IR order that's in is for a nephrostomy tube. Elizabeth Ludwig LPN [facility] 09-06-2024 Miscellaneous Notes See routing comment below. I will take care of the PICC line when appropriate to schedule. The IR order that's in is for a nephrostomy tube. Elizabeth Ludwig LPN Received call from [facility] stating they are unable to insert picc with order placed. She states they need a Tunneled Picc ordered and [facility] would schedule that procedure. Absolutely- will add antegrade stent to procedure if IR is able Stacy Gauthier MD Scheduled US for 09/07 PICC LINE 8/4 @ 10 [facility] Lab results from today show significant elevation of serum creatinine and BUN. Ultrasound stat. Also scheduled for potential nephrostomy tube placement at [facility] or [place]. AVS 09/05 Labs today. done Referral to Dr. Banks for muscle invasive bladder cancer DONE Chemo ed. DONE Patient will be receiving 5FU concurrently with radiation. Once radiation is scheduled, patient will need 5FU M-F during week 1 and week 4. Will need PICC line and may leave in for 1 month for treatment. CBC D8 and D15. CBC/CMP D22. OV for week 4 of treatment- no labs. OV with me in about 8 weeks. documented in this encounter [facility] 09-06-2024 Telephone encounter Note Received call from [facility] stating they are unable to insert picc with order placed. She states they need a Tunneled Picc ordered and [facility] would schedule that procedure. [facility] Work Phone: 09-06-2024 Note HNO ID: [id number] Author: LUIGI BANKS MD Service: ? Author Type: Physician Type: Progress Notes Filed: 09/14/2024 11:12 Note Text: Radiation Oncology - New Patient/Consult Note PATIENT NAME: Abelardo Ivory PATIENT REQUESTING PROVIDER: Dr. 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 HPI: 74 year old male who presents with above diagnosis, for an opinion regarding the role of radiation therapy in the management of the patient's disease. Final recommendations will be communicated back to the requesting physician by way of the shared medical record, or letter to requesting physician via US mail. 74 year old man with 40 pack-year history of smoking presented with gross hematuria in June. CT A/P on 06/21/24 showed bladder wall thickening along the base of the bladder worse on the leftside and left hydronephrosis. No retroperitoneal lymph nodes are seen. He underwent cystoscopy and TURBT on 06/27/24. There was papillary tumor looking around the bladder neck. He had maximum TURBT and the mass measured about 6 cm x 5 cm x 7 cm in total. Pathology showed high grade invasive urothelial carcinoma involving muscularis propria. CT C/A/P on 07/31/24 showed Wall thickening along bladder trigone compatible with urothelial cancer. No abdominopelvic metastasis. There was no definite metastasis in the chest. He had cystoscopy on 08/21/24. There was large amount of necrotic tissue starting at the bladder involving the majority of the trigone. No left ureteral orifice was able to be visualized. ALLERGIES No Known Allergies Current Outpatient Medications on File Prior to Visit Medication Sig phenazopyridine (PYRIDIUM) 100 mg tablet Take 100 mg by mouth three times a day. cholecalciferol, vitamin D3, (VITAMIN D-3) 10 mcg (400 unit) cap Take 400 Units by mouth once daily. amLODIPine (NORVASC) 5 mg tablet Take 5 mg by mouth once daily. rfercitnbec-adxvpdeid-rgazibpd (TRELEGY ELLIPTA) 200-62.5-25 mcg inhalation powder Inhale 1 puff as instructed once daily. acetaminophen (TYLENOL) 325 mg tablet Take 2 tablets by mouth every 4 hours. rosuvastatin (CRESTOR) 5 mg tablet Take 5 mg by mouth once daily. aspirin 81 mg chewable tablet Take 1 tablet by mouth once daily. albuterol HFA (PROAIR HFA) 90 mcg/actuation inhaler Inhale 2 Puffs as instructed every 4 hours as needed for Wheezing/Shortness of Breath. metoprolol tartrate, short acting, (LOPRESSOR) 25 mg tablet Take 0.5 tablets by mouth every 12 hours. No current facility-administered medications on file prior to visit. 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 No PAST SURGICAL HISTORY Procedure Laterality Date CABG (1) VEIN GRAFT AND ARTERIAL GRAFT 02/12/2019 AVR and CABG x1 PAST SURGICAL HISTORY OF cyst removed from back PAST SURGICAL HISTORY OF 12/28/2021 AAA repair - Stable status post graft repair of abdominal aortic aneurysm. PAST SURGICAL HISTORY OF 2024 Hernia repair PAST SURGICAL HISTORY OF 06/27/2024 Biopsy bladder REMV CATARACT EXTRACAP,INSERT LENS Left REMV CATARACT EXTRACAP,INSERT LENS Right FAMILY HISTORY Problem Relation Age of Onset Diabetes Mother Emphysema Mother Asthma Sister Kidney Disease Sister Aneurysm No Family History Social History Tobacco Use Smoking status: Every Day Current packs/day: 0.00 Average packs/day: 1 pack/day for 40.0 years (40.0 ttl pk-yrs) Types: Cigarettes Start date: 01/30/1979 Last attempt to quit: 01/30/2019 Years since quittin.6 Smokeless tobacco: Never Tobacco comments: started smoking 15yo, usually 1 PPD Vaping Use Vaping status: Never Used Substance Use Topics Alcohol use: No Drug use: No COMPLETE REVIEW OF SYSTEMS: GENERAL: feeling well without fatigue, no recent change in weight HEENT: denies ADAMSON, change in hearing or vision, no other ENT complaints NECK: denies swelling or pain in neck RESPIRATORY: COPD and chronic dry cough CARDIOVASCULAR: no chest pain, no palpitations GI: normal appetite, tolerating PO well, BMs normal, and no abdominal pain : see HPI. MUSCULOSKELETAL: denies any painful or swollen joints, no muscle aches SKIN: no rash HEMATOLOGY/LYMPHOLOGY: negative for prolonged bleedin (more content not included)... [facility] 09-06-2024 Note HNO ID: [id number] Author: UNRULY DIAZ RN Service: ? Author Type: Registered Nurse Type: Progress Notes Filed: 09/14/2024 11:12 Note Text: Radiation Therapy - Nursing Note (Consult) PATIENT NAME: Abelardo Ivory PATIENT September 06, 2024 [facility] FACILITY/LOCATION: [place] Chief Complaint: consult Reason for visit: Consult. Referring physician: Internal provider Dr Rivers Subjective Data: see pain assessment Additional Data Do you want to see a Artists[employer] Representative? No Are you interested in information about fertility? No Status: Patient is male Stress Scale: On a scale of 0 to 10, what number best describes how much distress you have experienced in the past week?(0 being no distress and 10 being extreme distress) 3 Social work notified: no SIGNED by: Unruly Diaz RN [facility] 09-06-2024 Telephone encounter Note Absolutely- will add antegrade stent to procedure if IR is able Stacy Gauthier MD [facility] Work Phone: 09-06-2024 Telephone encounter Note Spoke with Dr. Rivers office and they stated for you to send message to dr. Rivers and have him add it on to his order and they will be sure it gets scheduled. Earnestine Bass [facility] 09-06-2024 Miscellaneous Notes Spoke with Dr. Rivers office and they stated for you to send message to dr. Rivers and have him add it on to his order and they will be sure it gets scheduled. Earnestine Bass Dr Rivers ordered a left perc tube placement- can you find out where he's having it done, want to add on left antegrade stent placement at same time- thx Stacy Gauthier MD documented in this encounter [facility] 09-06-2024 Telephone encounter Note Scheduled US for 09/07 PICC LINE 8/4 @ 10 [place] Gutierres [facility] 09-06-[address] Rivers ordered a left perc tube placement- can you find out where he's having it done, want to add on left antegrade stent placement at same time- thx Stacy Gauthier MD [facility] Work Phone: 09-05-2024 Telephone encounter Note Lab results from today show significant elevation of serum creatinine and BUN. Ultrasound stat. Also scheduled for potential nephrostomy tube placement at [place] or [place]. [facility] 09-05-2024 Telephone encounter Note Met with patient and introduced myself. Patient was given a My Journey binder with chemocare information, office contact information, thermometer, and additional chemotherapy resource booklets. Patient aware this nurse will review on scheduled appointment date. Vivienne Gu RN [facility] 09-05-2024 Miscellaneous Notes Met with patient and introduced myself. Patient was given a My Journey binder with chemocare information, office contact information, thermometer, and additional chemotherapy resource booklets. Patient aware this nurse will review on scheduled appointment date. Vivienne Gu RN documented in this encounter [facility] 09-05-2024 Telephone encounter Note AVS 09/05 Labs today. done Referral to Dr. Banks for muscle invasive bladder cancer DONE Chemo ed. DONE Patient will be receiving 5FU concurrently with radiation. Once radiation is scheduled, patient will need 5FU M-F during week 1 and week 4. Will need PICC line and may leave in for 1 month for treatment. CBC D8 and D15. CBC/CMP D22. OV for week 4 of treatment- no labs. OV with me in about 8 weeks. [facility] 09-05-2024 Note HNO ID: [id number] Author: ANTHONY RIVERS DO Service: ? Author Type: Physician Type: Progress Notes Filed: 09/05/2024 17:01 Note Text: Patient self-referred for muscle invasive bladder cancer. HPI: The patient is a 74-year-old male with a past medical history as outlined below. Developed gross hematuria and noticed debris in urine. Saw Dr. Mcclendon. Had TURBT with chemo flush. Path below. Referred to [facility] b/c patient declined cystectomy. Per Dr. Christianson's note dated 07/26/2024, June 2024, began experiencing flank pain, and hematuria, [place] revealed a bladder tumor, and a CT scan with contrast was performed. The urologist attempted resection but was unable to remove the entire tumor. He underwent aortic valve replacement and coronary artery bypass grafting in 2019, during which a blocked artery was addressed. AAA repair 2021. TURBT 06/27/24- HG MIBC CT A/P: diffuse circumferential thickening with soft tissue stranding. Imaging - no metastases on CT A/P Smokes 1/2 ppd, in the past 1-1.5 ppd since age 15 years Pathology from [facility] reviewed at [facility]: A. Urinary bladder, transurethral resection: - Invasive urothelial carcinoma, high-grade, involving muscularis propria. CT chest 07/31/2024: IMPRESSION: 1. Stable nodules in left lung measuring up to 5 mm, these are indeterminate, recommend continued attention on follow-up. No new lung nodules or consolidations have developed. 2. Stable borderline enlarged lymph nodes in the mediastinum, probably reactive or related to a granulomatous process such as histoplasmosis. CT abdomen/pelvis 07/31/2024: IMPRESSION: 1. Stable nodules in left lung measuring up to 5 mm, these are indeterminate, recommend continued attention on follow-up. No new lung nodules or consolidations have developed. 2. Stable borderline enlarged lymph nodes in the mediastinum, probably reactive or related to a granulomatous process such as histoplasmosis. Underwent cystoscopy on 08/21. Be cystoscopy demonstrated large amount necrotic tissue starting at the bladder involving the majority of the trigone. The left ureteral orifice was not able to be visualized. Retrograde pyelogram could not be done. Urine stained from pyridium. Still having dysuria and pain end of penis. Normal appetite. Has oxygen that he uses at night and when out in the heat/humidity. Frequent productive cough. Clear sputum. Sees Dr. Zuñiga at [facility]. Smokes about 1/2 ppd. No alcohol. 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 Hyperlipidemia Juxtarenal ruptured abdominal aortic aneurysm (AAA) (HCC) 12/28/2021 PMH - PAST MEDICAL HISTORY OF 1979 left wrist fracture PUD (peptic ulcer disease) PAST SURGICAL HISTORY Procedure Laterality Date CABG (1) VEIN GRAFT AND ARTERIAL GRAFT 02/12/2019 AVR and CABG x1 PAST SURGICAL HISTORY OF cyst removed from back PAST SURGICAL HISTORY OF 12/28/2021 AAA repair - Stable status post graft repair of abdominal aortic aneurysm. PAST SURGICAL HISTORY OF 2024 Hernia repair PAST SURGICAL HISTORY OF 06/27/2024 Biopsy bladder REMV CATARACT EXTRACAP,INSERT LENS Left REMV CATARACT EXTRACAP,INSERT LENS Right phenazopyridine (PYRIDIUM) 100 mg tablet Take 100 mg by mouth three times a day. cholecalciferol, vitamin D3, (VITAMIN D-3) 10 mcg (400 unit) cap Take 400 Units by mouth once daily. amLODIPine (NORVASC) 5 mg tablet Take 5 mg by mouth once daily. jyirwlsxcpx-dsfrdrvoy-mfbdelth (TRELEGY ELLIPTA) 200-62.5-25 mcg inhalation powder Inhale 1 puff as instructed once daily. acetaminophen (TYLENOL) 325 mg tablet Take 2 tablets by mouth every 4 hours. rosuvastatin (CRESTOR) 5 mg tablet Take 5 mg by mouth once daily. aspirin 81 mg chewable tablet Take 1 tablet by mouth once daily. albuterol HFA (PROAIR HFA) 90 mcg/actuation inhaler Inhale 2 Puffs as instructed every 4 hours as needed for Wheezing/Shortness of Breath. metoprolol tartrate, short acting, (LOPRESSOR) 25 mg tablet Take 0.5 tablets by mouth every 12 hours. sulfamethoxazole-trimethoprim (BACTRIM DS) 800-160 mg per tablet Take 1 tablet by mouth two times a day for 7 days. (Patient not taking: Reported on 09/05/2024) oxyCODONE IR (ROXICODONE) 5 mg immediate release tablet Take 1-2 tablets by mouth every 8 hours as needed for up to 9 doses. (Patient not taking: Reported on 02/03/2022) docusate sodium (COLACE) 100 mg capsule Take 1 capsule by mouth twice daily. (Patient not taking: Reported on 02/03/2022) iv contrast (will be provided with radiology test) CT Cardiac - No IV access, insert saline lock prior to the sedation, infusion, injec (more content not included)... [facility] 09-05-2024 History of Presen t illness Narrative Patient self-referred for muscle invasive bladder cancer. HPI: The patient is a 74-year-old male with a past medical history as outlined below. Developed gross hematuria and noticed debris in urine. Saw Dr. Mcclendon. Had TURBT with chemo flush. Path below. Referred to [facility] b/c patient declined cystectomy. Per Dr. Christianson's note dated 07/26/2024, June 2024, began experiencing flank pain, and hematuria, [place] revealed a bladder tumor, and a CT scan with contrast was performed. The urologist attempted resection but was unable to remove the entire tumor. He underwent aortic valve replacement and coronary artery bypass grafting in 2019, during which a blocked artery was addressed. AAA repair 2021. TURBT 06/27/24- HG MIBC CT A/P: diffuse circumferential thickening with soft tissue stranding. Imaging - no metastases on CT A/P Smokes 1/2 ppd, in the past 1-1.5 ppd since age 15 years Pathology from [facility] reviewed at [facility]: A. Urinary bladder, transurethral resection: - Invasive urothelial carcinoma, high-grade, involving muscularis propria. CT chest 07/31/2024: IMPRESSION: 1. Stable nodules in left lung measuring up to 5 mm, these are indeterminate, recommend continued attention on follow-up. No new lung nodules or consolidations have developed. 2. Stable borderline enlarged lymph nodes in the mediastinum, probably reactive or related to a granulomatous process such as histoplasmosis. CT abdomen/pelvis 07/31/2024: IMPRESSION: 1. Stable nodules in left lung measuring up to 5 mm, these are indeterminate, recommend continued attention on follow-up. No new lung nodules or consolidations have developed. 2. Stable borderline enlarged lymph nodes in the mediastinum, probably reactive or related to a granulomatous process such as histoplasmosis. Underwent cystoscopy on 08/21. Be cystoscopy demonstrated large amount necrotic tissue starting at the bladder involving the majority of the trigone. The left ureteral orifice was not able to be visualized. Retrograde pyelogram could not be done. Urine stained from pyridium. Still having dysuria and pain end of penis. Normal appetite. Has oxygen that he uses at night and when out in the heat/humidity. Frequent productive cough. Clear sputum. Sees Dr. Zuñiga at [facility]. Smokes about 1/2 ppd. No alcohol. 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 Hyperlipidemia Juxtarenal ruptured abdominal aortic aneurysm (AAA) (HCC) 12/28/2021 PMH - PAST MEDICAL HISTORY OF 1979 left wrist fracture PUD (peptic ulcer disease) PAST SURGICAL HISTORY Procedure Laterality Date CABG (1) VEIN GRAFT & ARTERIAL GRAFT 02/12/2019 AVR and CABG x1 PAST SURGICAL HISTORY OF cyst removed from back PAST SURGICAL HISTORY OF 12/28/2021 AAA repair - Stable status post graft repair of abdominal aortic aneurysm. PAST SURGICAL HISTORY OF 2024 Hernia repair PAST SURGICAL HISTORY OF 06/27/2024 Biopsy bladder REMV CATARACT EXTRACAP,INSERT LENS Left REMV CATARACT EXTRACAP,INSERT LENS Right phenazopyridine (PYRIDIUM) 100 mg tablet Take 100 mg by mouth three times a day. cholecalciferol, vitamin D3, (VITAMIN D-3) 10 mcg (400 unit) cap Take 400 Units by mouth once daily. amLODIPine (NORVASC) 5 mg tablet Take 5 mg by mouth once daily. uwxwfswlfuh-vkjxslhbx-asovaaox (TRELEGY ELLIPTA) 200-62.5-25 mcg inhalation powder Inhale 1 puff as instructed once daily. acetaminophen (TYLENOL) 325 mg tablet Take 2 tablets by mouth every 4 hours. rosuvastatin (CRESTOR) 5 mg tablet Take 5 mg by mouth once daily. aspirin 81 mg chewable tablet Take 1 tablet by mouth once daily. albuterol HFA (PROAIR HFA) 90 mcg/actuation inhaler Inhale 2 Puffs as instructed every 4 hours as needed for Wheezing/Shortness of Breath. metoprolol tartrate, short acting, (LOPRESSOR) 25 mg tablet Take 0.5 tablets by mouth every 12 hours. sulfamethoxazole-trimethoprim (BACTRIM DS) 800-160 mg per tablet Take 1 tablet by mouth two times a day for 7 days. (Patient not taking: Reported on 09/05/2024) oxyCODONE IR (ROXICODONE) 5 mg immediate release tablet Take 1-2 tablets by mouth every 8 hours as needed for up to 9 doses. (Patient not taking: Reported on 02/03/2022) docusate sodium (COLACE) 100 mg capsule Take 1 capsule by mouth twice daily. (Patient not taking: Reported on 02/03/2022) iv contrast (will be provided with radiology test) CT Cardiac - No IV access, insert saline lock prior to the sedation, infusion, injection for imaging exam. Discontinue saline lock post exam. If Pt. has a central line or IVAD, may access for administration according to line specific nursing protocol. Once exam is complete flush line and de-access according to line specific nursing protocol in the CT contrast administration guidelines link. (Patient not taking: Reported on 04/17/2021) Omeprazole 40 mg capsule Take 1 capsule by mouth once daily. (Patient not taking: Reported on 08/16/2024) ALLERGIES No Known Allergies Social History Tobacco Use Smoking status: Every Day Current packs/day: 0.00 Average packs/day: 1 pack/day for 40.0 years (40.0 ttl pk-yrs) Types: Cigarettes Start date: 01/30/1979 Last attempt to quit: 01/30/2019 Years since quittin.6 Smokeless tobacco: Never Tobacco comments: started smoking 15yo, usually 1 PPD Vaping Use Vaping status: Never Used Substance Use Topics Alcohol use: No Drug use: No Worked for [employer]. FAMILY HISTORY Problem Relation Age of Onset Diabetes Mother Emphysema Mother Asthma Sister Kidney Disease Sister Aneurysm No Family History REVIEW OF SYSTEMS: Constitutional: No episodes of fever and night sweats.Normal appetite. Neuro: No ADAMSON, vertigo, dizziness and imbalance. HEENT: No recent change in voice, vision or hearing. Resp: No cough, wheeze and hemoptysis. No shortness of breath at rest. CVS: No exertional chest pain, PND, orthopnea and LE edema. GI: No reflux. Bowel habits normal. : See above. Endo: No hot flashes. Musculoskeletal: No bone, back, joint and muscular pain. Derm: No current rash. No history of jaundice or diffuse pruritis. Heme: No unusual bleeding and unexplained bruising. Psych: Normal mood. PHYSICAL EXAM: Vitals: Blood pressure 145/69, pulse 75, temperature 36.5 C (97.7 F), temperature source Temporal, height 169 cm (5' 6.54), weight 69.2 kg (152 lb 8 oz), SpO2 93%. Well-appearing and in no acute distress. EYES: Sclerae are anicteric bilaterally. LYMPHATIC: There is no palpable adenopathy. CARDIOVASCULAR: Rhythm is regular. ABDOMEN: The abdomen is nondistended. No splenomegaly or hepatomegaly. Extremities: No swelling or edema. SKIN: No jaundice. ASSESSMENT/PLAN: Assessment: (C67.9) Malignant neoplasm of urinary bladder, unspecified site (HCC) (primary encounter diagnosis) Assessment: -Muscle invasive bladder cancer. -Most recent GFR ~47 mL/min. -Declines surgery. -Discussed rationale for concurrent chemotherapy/radiation. -Recommended 5FU with mitomycin. -I discussed the rationale, logistics, potential risks (including but not limited to fatigue, cytopenias, rash, diarrhea, TTP, infection, stomatitis and the small potential for as a consequence of severe toxicity/complications of therapy), benefits and alternatives, as well as the personnel involved in the administration of infusional 5-fluorouracil with mitomycin. I answered his questions in detail and he verbalized understanding and agreed with the recommended therapy. Please see the electronic consent document for details of doses and schedule. Plan: -Labs today. -Referral to Dr. Banks. -PIC line for treatment. -CBC/CMP on day 1. CBC on days 8 and 15. CBC and CMP on day 22. Office visit for cycle #2, week 4. -Plan referral back to Dr. Gauthier about 4 to 6 weeks after completing therapy for repeat cystoscopy. I spent a total of 50 minutes on the date of the service which included preparing to see the patient, [id number] patient care, completing clinical documentation, obtaining and/or reviewing separately obtained history, performing a medically appropriate examination, counseling and educating the patient/family/caregiver, ordering medications, tests, or procedures, communicating with other HCPs (not separately reported), and communicating results to the patient/family/caregiver. nAthony Rivers DO documented in this encounter [facility] 08-29-2024 Telephone encounter Note Returned call to Abelardo Ivory regarding establishing care at [facility]. Contacted [facility] and spoke with Saira in hem/onc and she was able to schedule Darrel for: 09/05/2024 @ 2PM with Dr. Anthony Rivers. All questions addressed. Rakel KIRBY, RN [facility] 08-29-2024 Miscellaneous Notes Returned call to Abelardo Ivory regarding establishing care at [facility]. Contacted [facility] and spoke with Saira in hem/onc and she was able to schedule Darrel for: 09/05/2024 @ 2PM with Dr. Anthony Rivers. All questions addressed. Rakel KIRBY, RN [facility] Abelardo Ivory is calling Codey Christianson MD today regarding [facility] - Other Patient wants to have his radiation locally at the [facility] in [place]. [place] told him they need information from Dr. Christianson to make sure they have the treatment he needs/getting. Can someone call the patient back Patient has been identified by name and birthdate. Requesting response back: [phone] (home) [phone] (cell) Tabitha Hayes August [birth year]24 documented in this encounter [facility] 08-29-2024 Telephone encounter Note Abelardo Ivory is calling Codey Christianson MD today regarding [facility] [employer] - Other Patient wants to have his radiation locally at the [facility] in [place]. [place] told him they need information from Dr. Christianson to make sure they have the treatment he needs/getting. Can someone call the patient back Patient has been identified by name and birthdate. Requesting response back: [phone] (home) [phone] (cell) Tabitha Hayes August [birth year]24 [facility] 08-29-2024 Note HNO ID: [id number] Author: STACY GAUTHIER MD Service: ? Author Type: Physician Type: Progress Notes Filed: 08/29/2024 13:40 Note Text: ESTABLISHED PATIENT OFFICE VISIT HISTORY OF PRESENT ILLNESS Patient presents with: Bladder Cancer Hematuria Abelardo Ivory is a 74 year old male who presents with his dtr for follow up regarding his gross hem LAB RESULTS Creatinine Date Value Ref Range Status 07/26/2024 1.54 (H) 0.73 - 1.22 mg/dL Final PSA (ng/mL) Date Value 09/07/2012 0.46 Color (no units) Date Value 02/06/2019 Yellow Clarity (no units) Date Value 02/06/2019 Clear Glucose, Urine (mg/dL) Date Value 02/06/2019 Negative Bilirubin, Urine (no units) Date Value 02/06/2019 Negative Ketones, Urine (no units) Date Value 02/06/2019 Negative Specific [place], Ur (no units) Date Value 02/06/2019 1.017 Hemoglobin/Blood,Ur ( ) Date Value 02/06/2019 1+ pH, Urine (no units) Date Value 02/06/2019 6.0 Protein, Urine (mg/dL) Date Value 02/06/2019 Negative Urobilinogen (no units) Date Value 02/06/2019 Normal Nitrites (no units) Date Value 02/06/2019 Negative Leukest (no units) Date Value 02/06/2019 Negative ALLERGIES No Known Allergies MEDICATIONS: amLODIPine (NORVASC) 5 mg tablet Take 5 mg by mouth once daily. huqmfycbtve-jxcinvvbp-lpcweamc (TRELEGY ELLIPTA) 200-62.5-25 mcg inhalation powder Inhale 1 puff as instructed once daily. oxyCODONE IR (ROXICODONE) 5 mg immediate release tablet Take 1-2 tablets by mouth every 8 hours as needed for up to 9 doses. (Patient not taking: Reported on 02/03/2022) acetaminophen (TYLENOL) 325 mg tablet Take 2 tablets by mouth every 4 hours. docusate sodium (COLACE) 100 mg capsule Take 1 capsule by mouth twice daily. (Patient not taking: Reported on 02/03/2022) rosuvastatin (CRESTOR) 5 mg tablet Take 5 mg by mouth once daily. iv contrast (will be provided with radiology test) CT Cardiac - No IV access, insert saline lock prior to the sedation, infusion, injection for imaging exam. Discontinue saline lock post exam. If Pt. has a central line or IVAD, may access for administration according to line specific nursing protocol. Once exam is complete flush line and de-access according to line specific nursing protocol in the CT contrast administration guidelines link. (Patient not taking: Reported on 04/17/2021) Omeprazole 40 mg capsule Take 1 capsule by mouth once daily. (Patient not taking: Reported on 08/16/2024) aspirin 81 mg chewable tablet Take 1 tablet by mouth once daily. albuterol HFA (PROAIR HFA) 90 mcg/actuation inhaler Inhale 2 Puffs as instructed every 4 hours as needed for Wheezing/Shortness of Breath. metoprolol tartrate, short acting, (LOPRESSOR) 25 mg tablet Take 0.5 tablets by mouth every 12 hours. REVIEW OF SYSTEMS GENERAL:no unintentional weight loss, malaise or fevers. NEUROLOGIC: pt is alert and oriented GENITOURINARY: See HPI The remainder of the ROS was reviewed and is negative. HISTORIES 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 Hyperlipidemia Juxtarenal ruptured abdominal aortic aneurysm (AAA) (HCC) 12/28/2021 PMH - PAST MEDICAL HISTORY OF 1979 left wrist fracture PUD (peptic ulcer disease) FAMILY HISTORY Problem Relation Age of Onset Diabetes Mother Emphysema Mother Asthma Sister Cancer Brother Aneurysm No Family History PAST SURGICAL HISTORY Procedure Laterality Date CABG (1) VEIN GRAFT AND ARTERIAL GRAFT 02/12/2019 AVR and CABG x1 PAST SURGICAL HISTORY OF cyst removed from back PAST SURGICAL HISTORY OF 12/28/2021 AAA repair - Stable status post graft repair of abdominal aortic aneurysm. PAST SURGICAL HISTORY OF 2024 Hernia repair SOCIAL HISTORY Social History Tobacco Use Smoking status: Every Day Current packs/day: 0.00 Average packs/day: 1 pack/day for 40.0 years (40.0 ttl pk-yrs) Types: Cigarettes Start date: 01/30/1979 Last attempt to quit: 01/30/2019 Years since quittin.5 Smokeless tobacco: Never Tobacco comments: started smoking 15yo, usually 1 PPD Vaping Use Vaping status: Never Used Substance Use Topics Alcohol use: No Drug use: No PHYSICAL EXAMINATION General appearance: Well appearing, alert, in no acute distress, well-hydrated, well nourished Psych Alert and oriented to person, place and time Respiratory: no wheezing or rhonchi Genitourinary: MALE EXAM: Exam NOT Indicated 08/29/2024 PVR <50cc 08/22/2024 OR cysto 07/31/2024 CT c/a/p mild left hydro, bladder mass, no mets 07/31/2024 2nd opinion path HG T2 +[facility] 07/26/2024 Scr 1.5 06/07/2024 TURBT (jennifer) 01/01/2022 Scr 2.6 Assessment and Delmi (more content not included)... [facility] 08-29-2024 History of Presen t illness Narrative ESTABLISHED PATIENT OFFICE VISIT HISTORY OF PRESENT ILLNESS Patient presents with: Bladder Cancer Hematuria Abelardo Ivory is a 74 year old male who presents with his dtr for follow up regarding his gross hem LAB RESULTS Creatinine Date Value Ref Range Status 07/26/2024 1.54 (H) 0.73 - 1.22 mg/dL Final PSA (ng/mL) Date Value 09/07/2012 0.46 Color (no units) Date Value 02/06/2019 Yellow Clarity (no units) Date Value 02/06/2019 Clear Glucose, Urine (mg/dL) Date Value 02/06/2019 Negative Bilirubin, Urine (no units) Date Value 02/06/2019 Negative Ketones, Urine (no units) Date Value 02/06/2019 Negative Specific [place], Ur (no units) Date Value 02/06/2019 1.017 Hemoglobin/Blood,Ur ( ) Date Value 02/06/2019 1+ pH, Urine (no units) Date Value 02/06/2019 6.0 Protein, Urine (mg/dL) Date Value 02/06/2019 Negative Urobilinogen (no units) Date Value 02/06/2019 Normal Nitrites (no units) Date Value 02/06/2019 Negative Leukest (no units) Date Value 02/06/2019 Negative ALLERGIES No Known Allergies MEDICATIONS: amLODIPine (NORVASC) 5 mg tablet Take 5 mg by mouth once daily. vupmbqslots-tpzywbtxb-rwfevwnu (TRELEGY ELLIPTA) 200-62.5-25 mcg inhalation powder Inhale 1 puff as instructed once daily. oxyCODONE IR (ROXICODONE) 5 mg immediate release tablet Take 1-2 tablets by mouth every 8 hours as needed for up to 9 doses. (Patient not taking: Reported on 02/03/2022) acetaminophen (TYLENOL) 325 mg tablet Take 2 tablets by mouth every 4 hours. docusate sodium (COLACE) 100 mg capsule Take 1 capsule by mouth twice daily. (Patient not taking: Reported on 02/03/2022) rosuvastatin (CRESTOR) 5 mg tablet Take 5 mg by mouth once daily. iv contrast (will be provided with radiology test) CT Cardiac - No IV access, insert saline lock prior to the sedation, infusion, injection for imaging exam. Discontinue saline lock post exam. If Pt. has a central line or IVAD, may access for administration according to line specific nursing protocol. Once exam is complete flush line and de-access according to line specific nursing protocol in the CT contrast administration guidelines link. (Patient not taking: Reported on 04/17/2021) Omeprazole 40 mg capsule Take 1 capsule by mouth once daily. (Patient not taking: Reported on 08/16/2024) aspirin 81 mg chewable tablet Take 1 tablet by mouth once daily. albuterol HFA (PROAIR HFA) 90 mcg/actuation inhaler Inhale 2 Puffs as instructed every 4 hours as needed for Wheezing/Shortness of Breath. metoprolol tartrate, short acting, (LOPRESSOR) 25 mg tablet Take 0.5 tablets by mouth every 12 hours. REVIEW OF SYSTEMS GENERAL:no unintentional weight loss, malaise or fevers. NEUROLOGIC: pt is alert and oriented GENITOURINARY: See HPI The remainder of the ROS was reviewed and is negative. HISTORIES 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 Hyperlipidemia Juxtarenal ruptured abdominal aortic aneurysm (AAA) (HCC) 12/28/2021 PMH - PAST MEDICAL HISTORY OF 1979 left wrist fracture PUD (peptic ulcer disease) FAMILY HISTORY Problem Relation Age of Onset Diabetes Mother Emphysema Mother Asthma Sister Cancer Brother Aneurysm No Family History PAST SURGICAL HISTORY Procedure Laterality Date CABG (1) VEIN GRAFT & ARTERIAL GRAFT 02/12/2019 AVR and CABG x1 PAST SURGICAL HISTORY OF cyst removed from back PAST SURGICAL HISTORY OF 12/28/2021 AAA repair - Stable status post graft repair of abdominal aortic aneurysm. PAST SURGICAL HISTORY OF 2024 Hernia repair SOCIAL HISTORY Social History Tobacco Use Smoking status: Every Day Current packs/day: 0.00 Average packs/day: 1 pack/day for 40.0 years (40.0 ttl pk-yrs) Types: Cigarettes Start date: 01/30/1979 Last attempt to quit: 01/30/2019 Years since quittin.5 Smokeless tobacco: Never Tobacco comments: started smoking 15yo, usually 1 PPD Vaping Use Vaping status: Never Used Substance Use Topics Alcohol use: No Drug use: No PHYSICAL EXAMINATION General appearance: Well appearing, alert, in no acute distress, well-hydrated, well nourished Psych Alert and oriented to person, place and time Respiratory: no wheezing or rhonchi Genitourinary: MALE EXAM: Exam NOT Indicated 08/29/2024 PVR <50cc 08/22/2024 OR cysto 07/31/2024 CT c/a/p mild left hydro, bladder mass, no mets 07/31/2024 2nd opinion path HG T2 +[facility] 07/26/2024 Scr 1.5 06/07/2024 TURBT ([place]) 01/01/2022 Scr 2.6 Assessment and Plan: CRF- pt with chronic RI, latest eGFR 47 Bladder cancer- s/p TURBT in [place] (?? urologist), on repeat cysto I saw large amount of necrotic tissue starting at the bladder involving the majority of the trigone -pt with known T2 dx, told him that [facility] is neoadjuvant chemo followed by radical cystectomy and they understand - he has seen oncology, Dr Christianson @ [facility] and per his notes pt is interested in bladder preservation-we reviewed the RAD SG trial and general logistics which is a combo of XRT and immunotx (sacituzumab govitecan); they are going to call [facility] and get a tx plan scheduled Left hydro- unable to find his left orifice on cysto, likely involved in prior TURBT, pt denies CVAT. Told them that if he's going to get chemo in addition to rads we should place a PNT/stent to optomize RF Dysuria- pt denies hematuria, says has dysuria and pain in penis with voiding, urine dip +, will start abx today (Bactrim and Pyridium sent in) documented in this encounter [facility] 08-24-2024 Telephone encounter Note CASE [id number]: Spoke with patient, states he saw urology this week and stent was placed. Patient states he has decided not to do the study and would like to follow in [place] for chemo if possible. Aware Dr Christianson will be notified. [facility] 08-24-2024 Miscellaneous Notes CASE [id number]: Spoke with patient, states he saw urology this week and stent was placed. Patient states he has decided not to do the study and would like to follow in [place] for chemo if possible. Aware Dr Christianson will be notified. documented in this encounter [facility] 08-22-2024 Telephone encounter Note CASE [id number]: Left message on voicemail for pt to return call [facility] 08-22-2024 Miscellaneous Notes CASE [id number]: Left message on voicemail for pt to return call documented in this encounter [facility] 08-21-2024 Telephone encounter Note Unable to find left orifice, pt asymptomatic and only mild hydro on CT so may be draining. To have XRT/immunoTx @ [facility] - check CT flank and blood work mid Sep to assess hydro, if worse then will need PNT (discussed with dtr)- we can review results on phone as they live in [place] Stacy Gauthier MD [facility] 08-21-2024 Miscellaneous Notes Unable to find left orifice, pt asymptomatic and only mild hydro on CT so may be draining. To have XRT/immunoTx @ [facility] - check CT flank and blood work mid Sep to assess hydro, if worse then will need PNT (discussed with dtr)- we can review results on phone as they live in [place] Stacy Gauthier MD documented in this encounter [facility] 08-21-2024 Note HNO ID: [id number] Author: MARIELY ZHANG APRN.ASPHALT PATCHER Service: Anesthesiology Author Type: Nurse Clamshell Engineer Type: Anesthesia Procedure Notes Filed: 08/21/2024 15:15 Note Text: ANESTHESIOLOGY PROCEDURE NOTE Airway General Information Procedure Start Time/Medication Administration: 08/21/2024 3:08 PM Procedure End Time: 08/21/2024 3:08 PM Patient location during procedure: OR Timeout Performed Pre-procedure: timeout performed Consent Obtained: Yes Patient identity confirmed: arm band Staffing Anesthesiologist: Kaleigh Benites MD ASPHALT PATCHER: Mariely Zhang APRN.ASPHALT PATCHER Performed by: JAVI Indications and Patient Condition Indications for airway management: anesthesia and airway protection Preoxygenated: yes anesthesia circuit Patient position: sniffing Method: asleep Final Airway Details Final airway type: supraglottic airway Number of attempts at approach: 1 Ventilation between attempts: BVM Final Supraglottic Airway: i-gel Size 5 Seal Adequate: yes SIGNATURE: Mariely Zhang APRN.CRNA PATIENT NAME: Abelardo Ivory DATE: August 21, 2024 TIME: 3:14 PM CSN: [id number] [facility] 08-16-2024 Instructions Corrine Pichardo APRN.MECHANIC - 08/16/2024 10:39 AM EDT PATIENT PREOPERATIVE INSTRUCTIONS Your surgeon has scheduled you for your procedure at this surgery center: [facility] [phone] [address] [id number] Please enter through the main entrance, and proceed to the blue elevators. The surgery center is located left of the blue elevators. Please read below carefully for your personalized instructions. Arrival Time for Surgery: DATE: 08/21/2024 Your surgeon's office will provide you with your ARRIVAL TIME for surgery. -If you have not received an arrival time by the afternoon before your surgery date, please follow up with your surgeon's office. - If you are scheduled for Tuesday surgery, please make sure you have your arrival time by Tuesday afternoon. -Please be aware that emergency situations arise, which may delay or change your surgical time. If this happens, your surgeon's office will notify you as soon as possible and regret any inconvenience. Dietary Restrictions: -Nothing to eat or drink after midnight except for a sip of water with approved medications. -This is important because if you do, your surgery may have to be cancelled Blood Thinning Medications: - Stop NSAIDS (Ibuprofen, Advil, Aleve, Motrin, Celebrex, Mobic, Voltaren, Diclofenac, etc.) 7 days before surgery, as directed by your surgeon. -You may take Tylenol or pain medications that do not contain Aspirin or NSAIDs. - Stop Vitamin E, fish oil, multivitamins, Marijuana, CBD oil and other over the counter herbals and dietary supplements 7 days before surgery. ?-This would not apply to cancer patients who are prescribed Marinol or any other prescription form on marijuana or CBD. -IF YOU TAKE ANY OF THE FOLLOWING BLOOD THINNERS, PLEASE CONTACT YOUR SURGEON AND THE PHYSICIAN WHO PRESCRIBES IT FOR YOU IN ORDER TO GET PERIOPERATIVE INSTRUCTIONS SOON POSSIBLE. BLOOD THINNERS: Aspirin , Coumadin, Plavix, Eliquis, Pradaxa, Xarelto, Lovenox, Brilinta, Effient, Savaysa, Arixtra, etc Medications: Approved medications to take the morning of surgery with a sip of water: BP, Heart, thyroid, psych, seizure, and pain medications excluding NSAIDS. Use inhalers as prescribed. Please bring inhalers. Medications to be taken with small amount of fluid on the morning of surgery: If these are morning medications, go ahead and take: Approved medications to take the morning of surgery with a sip of water: BP, Heart, thyroid, psych, seizure, and pain medications excluding NSAIDS. Use inhalers as prescribed. Please bring inhalers. Pre Surgery Med Instructions Medication instructions acetaminophen (TYLENOL) 325 mg tablet Continue as prescribed. albuterol HFA (PROAIR HFA) 90 mcg/actuation inhaler Continue as prescribed. amLODIPine (NORVASC) 5 mg tablet If you normally take this medication in the morning, it is ok to take the morning of surgery with a sip of water. aspirin 81 mg chewable tablet Follow surgeon's instructions. aeskrrbqphp-zezmjtzay-rcmwsuki (TRELEGY ELLIPTA) 200-62.5-25 mcg inhalation powder Continue as prescribed. metoprolol tartrate, short acting, (LOPRESSOR) 25 mg tablet If you normally take this medication in the morning, it is ok to take the morning of surgery with a sip of water. rosuvastatin (CRESTOR) 5 mg tablet Continue as prescribed. Preoperative Instructions for Patients with Diabetes Mellitus: Please follow up with the provider that manages your diabetes and how to prepare you for surgery. Do not take the morning of surgery; Metformin, Actos/Pioglitazone and Amaryl/Glimepiride, Linagliptin ( Tradjenta) For the following Medications, please HOLD 2 DAYS PRIOR TO SURGERY: Glucotrol/Glipizide, Januvia/Sitagliptin, Glyburide, Prandin/Repaglinide, Starlix/Nateglinide, Symlin/Pramlintide, Kazano ( Alogliptin/Metformin) For the following Medications, please HOLD 3 DAYS PRIOR TO SURGERY: Canagliflozin/Invokana, Dapagliflozin/Farxiga ,Empagliflozin/Jardiance, Invokamet/canagliflozin and metformin, Xigduo XR/ dapagliglozin and metformin, Glyxambi/ empagliflozin and metformin, Syndardy/ empagliflozin and metformin For the following Medications, please HOLD 4 DAYS PRIOR TO SURGERY: Ertugliflozin/Steglatro For the following Medications, please HOLD 7 DAYS PRIOR TO SURGERY: GLP-1 AGONIST: Adlyxin (lixisenatide), Bydureon BCise (exenatide suspension), Byetta (exenatide), Mounjaro (tirzepatide), Ozempic(semaglutide injection) Tanzeum (albiglutide), Trulicity (dulaglutide), Victoza (liraglutide), Wegovy (semaglutide), Saxenda (liraglutide),Xultophy (degludec/liraglutide) . Oral form- Rybelsus (semaglutide tablets) Insulin Medication Instructions: Please follow up with the provider that manages your Insulin and how to prepare you for surgery. It is recommended ALL Pre-Op patients and Endoscopy patients hold all GLP-1 agonists for 7 days prior to surgery. If you start any new medications after today's visit, please contact the surgeon's office. Erectile Dysfunction If you take any medications for erectile dysfunction, please do not take these 48 hours prior to surgery. Important Reminders: - You need a responsible person to stay and wait for you at the hospital or surgery center during your procedure. - If you are undergoing an outpatient procedure you must have someone drive you home and stay with you for 24 hours. Your surgery may be cancelled if you do not have someone to drive you home or take care of you for 24 hours. - If you use CPAP/BIPAP, bring the machine with you to the surgery center. - If you are prescribed inhalers for breathing, continue using them AND bring them to the surgery center. - Candy, mints, gum and tobacco products are NOT permitted the morning of surgery. - Hearing aids, dentures and glasses may be worn the morning of surgery. - NO jewelry, body piercings, makeup, hairpins or contacts are to be worn the day of surgery. -Oral hygiene and a shower or bath is required the evening before or the morning of surgery. - NO lotion, creams, powders or deodorants on the skin the day of surgery -Wear loose, comfortable clothing that will accommodate bandages. -Your length of stay will be determined by your surgeon - You will need to have someone else (Family or friend) drive you home once discharged from the hospital. You are not allowed to drive yourself home after surgery. - YOU MUST HAVE A RESPONSIBLE READING PROFESSOR TAKE YOU HOME. A DESIGN ENGINEERING TECHNICIAN, CAB OR UBER READING PROFESSOR CANNOT BE MADE A RESPONSIBLE READING PROFESSOR. - We recommend that a responsible person stays with you overnight to take care of you. - You cannot stay in a hotel alone after outpatient surgery. You will not be permitted to have your surgery, if you do not have someone to take care of you. - If you have a stimulator, implant or pump that requires a remote please bring the remote with you day of surgery. If you develop symptoms such as a fever, cold, or flu, or have other changes to your health within TWO DAYS of scheduled surgery or the morning of surgery, please contact the surgery center above. Visitors to any [facility] facility: - An individual who is sick should not visit. - Visitors to patients with COVID-19 must follow these guidelines, which include wearing a mask, eye protection, gown and gloves. [facility]- Visitations are: - Visitation hours are from 7 a.m. to 9 p.m. - Pre- Surgery-Patients may have up to two visitors at a time. - PACU-Patients may have up to 1-2 visitors at a time. Personal Belongings: - Leave ALL valuables and money at home or with family members. - You will need a form of ID and insurance card to check in the morning of surgery. - You will have to wear a hospital gown during your stay but if you wish to bring undergarments for after surgery you may. -If you do not have a copy of advance directives on file with us, please bring a copy with you on the day of surgery. If you already have an Advance Directive, please fax a copy to [phone] or Anderson GARCIA at [phone] or email to for it to be added to your chart. If you do not have an Advance Directive, you can find the appropriate form and more information at [email or web address]. We recommend that you complete the Advance Directive form found on the website and bring it with you the day of your surgery. It can be witnessed and scanned into your chart that day. Corrine Pichardo APRN.CNP 08/16/24 documented in this encounter [facility] 08-16-2024 History and physical note Images from the original note were not included. [facility] HISTORY AND PHYSICAL EXAMINATION SERVICE DATE: 08/16/2024 SERVICE TIME: 10:00 AM PRIMARY CARE PHYSICIAN: Padmini Carrasco MD Assessment Patient has the following medical conditions which may affect kirstie-operative course: Preop testing Assessment : See Note for medical conditions which may affect kirstie-operative course was addressed in visit today. 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lummi heart without angina pectoris Assessment: Followed by [facility] - H/O CABG - taking aspirin Plan: Patient instructed to notify surgeon and prescriber for preop instructions. 04/17/2021 Stress Test CONCLUSIONS: 1. SPECT Perfusion Study: Normal. 2. There is no scintigraphic evidence for inducible ischemia. 3. No evidence of scarred myocardium. 4. Left ventricle is normal in size. The left ventricle systolic function is normal. 5. Right ventricle is normal in size. The right ventricle systolic function is normal. 6. This is a low risk scan. Gated Stress FBP Gated Rest FBP LVEF % 71 70 12/28/2021 Echo Impression CONCLUSIONS: - Exam indication: Re-evaluation of known ascending aortic dilatation to establish baseline - This is a limited bedside echo performed by the J31 fellow. - LV and RV systolic function preserved and similar to prior echo. - No significant AR, dissection flap in ascending aorta, or pericardial effusion noted. - Aortic valve prosthesis noted with mild calcification. - For a more detailed study, please obtain a formal TTE. - Exam was compared with the prior echocardiographic exam performed on 09/29/2020 ([place]). Limited study. Essential hypertension Assessment: taking taking metoprolol; amlodipine Hyperlipidemia Assessment: taking rosuvastatin 5 mg daily Centrilobular emphysema (HCC) Assessment: Albuterol as needed; Trelegy as scheduled. Patient denies hospitalizations or pneumonia within 6 weeks. Type 2 diabetes mellitus without complication, without long-term current use of insulin (HCC) Assessment: Diet controlled CKD (chronic kidney disease) Assessment: 08/01/2024 BUN/Cr 34/1.54 ANESTHESIA FINDINGS: Intubation History: No history of difficult intubation Significant Anesthesia Considerations: none Airway History: No history of difficult airway Smith Activity Status Index: METS: Climb a flight of stairs or walk up a hill (5.50 METs) DASI Score: 5.5 Patient denies any chest pain or undue shortness of breath with the above physical activity. Clinical Frailty Scale: 3. Well, with treated comorbid disease ARISCAT Score: Age: 51-80 Preoperative SpO2: >=96% Respiratory infection in the last month: No Preoperative anemia: No Surgical incision: peripheral Duration of surgery: <2 hrs Emergency procedure: No ARISCAT Score: 3 I - PHYSICAL EVALUATION AIRWAY Patient intubated: No. DENTAL Dentures, upper: complete. II - ANESTHESIA PLAN Anesthetic Plan: general Beta Jami Monitoring Plan Post Procedure Analgesic Plan Prepared for Surgery: CONSULTS: Patient does not require consults for optimization at this time Planned Anesthetic: general The Following Tests/Procedures Have Been Initiated: Orders Placed This Encounter amLODIPine (NORVASC) 5 mg tablet Sig: Take 5 mg by mouth once daily. bkxcvkqgsoo-kgyqosskp-nhobpxty (TRELEGY ELLIPTA) 200-62.5-25 mcg inhalation powder Sig: Inhale 1 puff as instructed once daily. REASON FOR VISIT: Abelardo Ivory is a 74 year old male who is scheduled for Procedure(s): CYSTOSCOPY RIGID (N/A) EXCISION BLADDER TUMOR SMALL (0.5 UP TO 2.0 CM) (N/A) INSERTION STENT DOUBLE J (Left) at the request of Dr. Stacy Gauthier for routine H&P. My final recommendation will be communicated back to the requesting physician by way of shared medical record or letter. The reason for this visit is to perform a comprehensive review of the patient's past medical history, assess their current health status and obtain any additional testing required based on anesthesia guidelines. We will also identify any potential anesthesia problems or contraindications to the planned procedure. Subjective The patient has the following: COVID-19 Immunization Status Current Care Gaps Covid-19 Vaccine ( season) Never done No completion, postpone, frequency change, or communication history exists for this topic. CHIEF COMPLAINT: Urinary bladder cancer HPI: Patient reports history of urinary bladder cancer. He reports he had a bladder resection in June 2023 at [facility]. Today, he denies pain, rating 0 out of 10 on numeric pain scale. He complains of urinary urgency and frequency. He denies dysuria or hematuria at this time. After discussion with surgeon patient agreeable to surgical intervention. REVIEW OF SYSTEMS: General: No weight loss, malaise or fevers. Neurological: Negative for: headaches, seizures and strokes. Respiratory: Positive for: COPD (Emphysema). Negative for: asthma, current cough, pneumonia within 6 weeks and obstructive sleep apnea. Cardiovascular: +H/O AV replace 2019; H/O AAA repair 2021 Positive for: CAD, hyperlipidemia and hypertension Negative for: abdominal aortic aneurysm, arrhythmia, chest pain, CHF and DVT/PE. GI: No history of GI symptoms or problems. No history of esophageal varices, recent ascites, or ETOH greater than 2 drinks per day. : See HPI. Endocrine: Positive for: diabetes mellitus. Negative for: hypothyroidism. Hematology: No history of bleeding or clotting disorder. Patient is not taking anti-coagulation or platelet medications. No history of hematological symptoms or problems. Negative for: anemia and factor V Leiden. Oncology: No history of CA metastasis, chemo within 30 days, or radiotherapy within 90 days. No history of oncological symptoms or problems. Psych: No history of psychiatric symptoms or problems. Musculoskeletal: Negative for joint pain or swelling, back pain or muscle pain. Skin: Negative for lesions, rash and itching. Implanted Devices: No implanted devices. 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 Hyperlipidemia Juxtarenal ruptured abdominal aortic aneurysm (AAA) (HCC) 12/28/2021 PMH - PAST MEDICAL HISTORY OF 1979 left wrist fracture PUD (peptic ulcer disease) PAST SURGICAL HISTORY Procedure Laterality Date CABG (1) VEIN GRAFT & ARTERIAL GRAFT 02/12/2019 AVR and CABG x1 PAST SURGICAL HISTORY OF cyst removed from back PAST SURGICAL HISTORY OF 12/28/2021 AAA repair - Stable status post graft repair of abdominal aortic aneurysm. PAST SURGICAL HISTORY OF 2024 Hernia repair FAMILY HISTORY Problem Relation Age of Onset Diabetes Mother Emphysema Mother Asthma Sister Cancer Brother Aneurysm No Family History Social History Tobacco Use Smoking status: Every Day Current packs/day: 0.00 Average packs/day: 1 pack/day for 40.0 years (40.0 ttl pk-yrs) Types: Cigarettes Start date: 01/30/1979 Last attempt to quit: 01/30/2019 Years since quittin.5 Smokeless tobacco: Never Tobacco comments: started smoking 15yo, usually 1 PPD Vaping Use Vaping status: Never Used Substance Use Topics Alcohol use: No Drug use: No Prior to Admission medications as of 08/16/24 1022 Medication Sig Last Dose Taking amLODIPine (NORVASC) 5 mg tablet Take 5 mg by mouth once daily. Yes xazcspsnmfr-qmeavkqgx-lfgizipi (TRELEGY ELLIPTA) 200-62.5-25 mcg inhalation powder Inhale 1 puff as instructed once daily. Yes acetaminophen (TYLENOL) 325 mg tablet Take 2 tablets by mouth every 4 hours. Yes rosuvastatin (CRESTOR) 5 mg tablet Take 5 mg by mouth once daily. Yes aspirin 81 mg chewable tablet Take 1 tablet by mouth once daily. Yes albuterol HFA (PROAIR HFA) 90 mcg/actuation inhaler Inhale 2 Puffs as instructed every 4 hours as needed for Wheezing/Shortness of Breath. Yes metoprolol tartrate, short acting, (LOPRESSOR) 25 mg tablet Take 0.5 tablets by mouth every 12 hours. Yes oxyCODONE IR (ROXICODONE) 5 mg immediate release tablet Take 1-2 tablets by mouth every 8 hours as needed for up to 9 doses. Patient not taking: Reported on 02/03/2022 docusate sodium (COLACE) 100 mg capsule Take 1 capsule by mouth twice daily. Patient not taking: Reported on 02/03/2022 iv contrast (will be provided with radiology test) CT Cardiac - No IV access, insert saline lock prior to the sedation, infusion, injection for imaging exam. Discontinue saline lock post exam. If Pt. has a central line or IVAD, may access for administration according to line specific nursing protocol. Once exam is complete flush line and de-access according to line specific nursing protocol in the CT contrast administration guidelines link. Patient not taking: Reported on 04/17/2021 Omeprazole 40 mg capsule Take 1 capsule by mouth once daily. Patient not taking: Reported on 08/16/2024 No medication comments found. ALLERGIES No Known Allergies Objective PHYSICAL EXAM: General: alert and oriented and healthy appearance. Pertinent negatives noted - not distressed. Skin: normal color, no rash or lesions. HEENT: EOM intact. Cardiovascular: Pulse characterized as divine.Pertinent negatives noted - no murmur, no rub and no gallop. +HR 53. Respiratory: normal breath sounds, no wheezes or crackles. No chest wall deformity or tenderness. Abdomen: bowel sounds present. Extremities: no deformity, no edema or tenderness, no joint swelling or clubbing. Neurological: normal cognition and motor skills. Gait normal. No weakness or sensory deficit. PAIN ASSESSMENT: Pain Pain Level: 0 VITALS: BP 138/82 Pulse 53 Temp 96.8 Resp 16 Ht 5' 5.98 (1.68m) Wt 156 lb 6.4 oz (70.9kg) SpO2 99% BMI 25.26 kg/(m^2). Diagnostic tests reviewed for today's visit: Lab Value Units Date High Low HB 12.2 g/dL 07/26/2024 17.0 13.0 HCT 38.1 % 07/26/2024 51.0 39.0 WBC 7.32 k/uL 07/26/2024 11.00 3.70 PLT 156 k/uL 07/26/2024 400 150 NA 139 mmol/L 07/26/2024 144 136 K 4.9 mmol/L 07/26/2024 5.1 3.7 GLUC 106 mg/dL 07/26/2024 99 74 BUN 34 mg/dL 07/26/2024 24 9 CREAT 1.54 mg/dL 07/26/2024 1.22 0.73 PTSEC No results within date range. INR No results within date range. APTT No results within date range. ALT 12 U/L 07/26/2024 54 10 AST 19 U/L 07/26/2024 40 14 TBILI 0.3 mg/dL 07/26/2024 1.3 0.2 TSH No results within date range. Lab Value Units Date High Low HCGQT No results within date range. UHCG No results within date range. HCG, BODY* No results within date range. Lab Value Units Date High Low ABORHD No results within date range. ABSCREEN No results within date range. No results found for: HBA1C No results found for this or any previous visit (from the past 8760 hours). No results found for this or any previous visit (from the past 30488 hours). Implantable Devices: None Assessment/Plan Malignant neoplasm of urinary bladder, unspecified site (HCC) [C67.9] Gross hematuria [R31.0] PLAN Planned Procedure: Procedure(s): CYSTOSCOPY RIGID (N/A) EXCISION BLADDER TUMOR SMALL (0.5 UP TO 2.0 CM) (N/A) INSERTION STENT DOUBLE J (Left) The Following Tests/Procedures Have Been Initiated: Urine culture ordered in epic by surgeon Instructions Given to Patient: Instructions located in the after visit summary. Patient given verbal and written preop instructions and voices comprehension and compliance. I spent a total of 40 minutes on the date of the service which included preparing to see the patient, [id number] patient care, completing clinical documentation, obtaining and/or reviewing separately obtained history, performing a medically appropriate examination, and counseling and educating the patient/family/caregiver. SIGNATURE: Corrine Pichardo APRN.CNP PATIENT NAME: Abelardo Ivory DATE: August 16, 2024 TIME: 7:23 AM PAGER/CONTACT #: [facility] 08-16-2024 History and physical note Images from the original note were not included. [facility] HISTORY AND PHYSICAL EXAMINATION SERVICE DATE: 08/16/2024 SERVICE TIME: 10:00 AM PRIMARY CARE PHYSICIAN: Padmini Carrasco MD Assessment Patient has the following medical conditions which may affect kirstie-operative course: Preop testing Assessment : See Note for medical conditions which may affect kirstie-operative course was addressed in visit today. 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lummi heart without angina pectoris Assessment: Followed by [facility] - H/O CABG - taking aspirin Plan: Patient instructed to notify surgeon and prescriber for preop instructions. 04/17/2021 Stress Test CONCLUSIONS: 1. SPECT Perfusion Study: Normal. 2. There is no scintigraphic evidence for inducible ischemia. 3. No evidence of scarred myocardium. 4. Left ventricle is normal in size. The left ventricle systolic function is normal. 5. Right ventricle is normal in size. The right ventricle systolic function is normal. 6. This is a low risk scan. Gated Stress FBP Gated Rest FBP LVEF % 71 70 12/28/2021 Echo Impression CONCLUSIONS: - Exam indication: Re-evaluation of known ascending aortic dilatation to establish baseline - This is a limited bedside echo performed by the J31 fellow. - LV and RV systolic function preserved and similar to prior echo. - No significant AR, dissection flap in ascending aorta, or pericardial effusion noted. - Aortic valve prosthesis noted with mild calcification. - For a more detailed study, please obtain a formal TTE. - Exam was compared with the prior echocardiographic exam performed on 09/29/2020 (Jennifer). Limited study. Essential hypertension Assessment: taking taking metoprolol; amlodipine Hyperlipidemia Assessment: taking rosuvastatin 5 mg daily Centrilobular emphysema (HCC) Assessment: Albuterol as needed; Trelegy as scheduled. Patient denies hospitalizations or pneumonia within 6 weeks. Type 2 diabetes mellitus without complication, without long-term current use of insulin (HCC) Assessment: Diet controlled CKD (chronic kidney disease) Assessment: 08/01/2024 BUN/Cr 34/1.54 ANESTHESIA FINDINGS: Intubation History: No history of difficult intubation Significant Anesthesia Considerations: none Airway History: No history of difficult airway Smith Activity Status Index: METS: Climb a flight of stairs or walk up a hill (5.50 METs) DASI Score: 5.5 Patient denies any chest pain or undue shortness of breath with the above physical activity. Clinical Frailty Scale: 3. Well, with treated comorbid disease ARISCAT Score: Age: 51-80 Preoperative SpO2: >=96% Respiratory infection in the last month: No Preoperative anemia: No Surgical incision: peripheral Duration of surgery: <2 hrs Emergency procedure: No ARISCAT Score: 3 I - PHYSICAL EVALUATION AIRWAY Patient intubated: No. DENTAL Dentures, upper: complete. II - ANESTHESIA PLAN Anesthetic Plan: general Beta Jami Monitoring Plan Post Procedure Analgesic Plan Prepared for Surgery: CONSULTS: Patient does not require consults for optimization at this time Planned Anesthetic: general The Following Tests/Procedures Have Been Initiated: Orders Placed This Encounter amLODIPine (NORVASC) 5 mg tablet Sig: Take 5 mg by mouth once daily. toohzgwrhcb-zxwvayqdh-yiyndmrk (TRELEGY ELLIPTA) 200-62.5-25 mcg inhalation powder Sig: Inhale 1 puff as instructed once daily. REASON FOR VISIT: Abelardo Ivory is a 74 year old male who is scheduled for Procedure(s): CYSTOSCOPY RIGID (N/A) EXCISION BLADDER TUMOR SMALL (0.5 UP TO 2.0 CM) (N/A) INSERTION STENT DOUBLE J (Left) at the request of Dr. Stacy Gauthier for routine H&P. My final recommendation will be communicated back to the requesting physician by way of shared medical record or letter. The reason for this visit is to perform a comprehensive review of the patient's past medical history, assess their current health status and obtain any additional testing required based on anesthesia guidelines. We will also identify any potential anesthesia problems or contraindications to the planned procedure. Subjective The patient has the following: COVID-19 Immunization Status Current Care Gaps Covid-19 Vaccine ( season) Never done No completion, postpone, frequency change, or communication history exists for this topic. CHIEF COMPLAINT: Urinary bladder cancer HPI: Patient reports history of urinary bladder cancer. He reports he had a bladder resection in June 2023 at [facility]. Today, he denies pain, rating 0 out of 10 on numeric pain scale. He complains of urinary urgency and frequency. He denies dysuria or hematuria at this time. After discussion with surgeon patient agreeable to surgical intervention. REVIEW OF SYSTEMS: General: No weight loss, malaise or fevers. Neurological: Negative for: headaches, seizures and strokes. Respiratory: Positive for: COPD (Emphysema). Negative for: asthma, current cough, pneumonia within 6 weeks and obstructive sleep apnea. Cardiovascular: +H/O AV replace 2019; H/O AAA repair 2021 Positive for: CAD, hyperlipidemia and hypertension Negative for: abdominal aortic aneurysm, arrhythmia, chest pain, CHF and DVT/PE. GI: No history of GI symptoms or problems. No history of esophageal varices, recent ascites, or ETOH greater than 2 drinks per day. : See HPI. Endocrine: Positive for: diabetes mellitus. Negative for: hypothyroidism. Hematology: No history of bleeding or clotting disorder. Patient is not taking anti-coagulation or platelet medications. No history of hematological symptoms or problems. Negative for: anemia and factor V Leiden. Oncology: No history of CA metastasis, chemo within 30 days, or radiotherapy within 90 days. No history of oncological symptoms or problems. Psych: No history of psychiatric symptoms or problems. Musculoskeletal: Negative for joint pain or swelling, back pain or muscle pain. Skin: Negative for lesions, rash and itching. Implanted Devices: No implanted devices. 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 Hyperlipidemia Juxtarenal ruptured abdominal aortic aneurysm (AAA) (HCC) 12/28/2021 PMH - PAST MEDICAL HISTORY OF 1979 left wrist fracture PUD (peptic ulcer disease) PAST SURGICAL HISTORY Procedure Laterality Date CABG (1) VEIN GRAFT & ARTERIAL GRAFT 02/12/2019 AVR and CABG x1 PAST SURGICAL HISTORY OF cyst removed from back PAST SURGICAL HISTORY OF 12/28/2021 AAA repair - Stable status post graft repair of abdominal aortic aneurysm. PAST SURGICAL HISTORY OF 2024 Hernia repair FAMILY HISTORY Problem Relation Age of Onset Diabetes Mother Emphysema Mother Asthma Sister Cancer Brother Aneurysm No Family History Social History Tobacco Use Smoking status: Every Day Current packs/day: 0.00 Average packs/day: 1 pack/day for 40.0 years (40.0 ttl pk-yrs) Types: Cigarettes Start date: 01/30/1979 Last attempt to quit: 01/30/2019 Years since quittin.5 Smokeless tobacco: Never Tobacco comments: started smoking 15yo, usually 1 PPD Vaping Use Vaping status: Never Used Substance Use Topics Alcohol use: No Drug use: No Prior to Admission medications as of 08/16/24 1022 Medication Sig Last Dose Taking amLODIPine (NORVASC) 5 mg tablet Take 5 mg by mouth once daily. Yes lkebymrqnhb-uyitrmugb-atypzvba (TRELEGY ELLIPTA) 200-62.5-25 mcg inhalation powder Inhale 1 puff as instructed once daily. Yes acetaminophen (TYLENOL) 325 mg tablet Take 2 tablets by mouth every 4 hours. Yes rosuvastatin (CRESTOR) 5 mg tablet Take 5 mg by mouth once daily. Yes aspirin 81 mg chewable tablet Take 1 tablet by mouth once daily. Yes albuterol HFA (PROAIR HFA) 90 mcg/actuation inhaler Inhale 2 Puffs as instructed every 4 hours as needed for Wheezing/Shortness of Breath. Yes metoprolol tartrate, short acting, (LOPRESSOR) 25 mg tablet Take 0.5 tablets by mouth every 12 hours. Yes oxyCODONE IR (ROXICODONE) 5 mg immediate release tablet Take 1-2 tablets by mouth every 8 hours as needed for up to 9 doses. Patient not taking: Reported on 02/03/2022 docusate sodium (COLACE) 100 mg capsule Take 1 capsule by mouth twice daily. Patient not taking: Reported on 02/03/2022 iv contrast (will be provided with radiology test) CT Cardiac - No IV access, insert saline lock prior to the sedation, infusion, injection for imaging exam. Discontinue saline lock post exam. If Pt. has a central line or IVAD, may access for administration according to line specific nursing protocol. Once exam is complete flush line and de-access according to line specific nursing protocol in the CT contrast administration guidelines link. Patient not taking: Reported on 04/17/2021 Omeprazole 40 mg capsule Take 1 capsule by mouth once daily. Patient not taking: Reported on 08/16/2024 No medication comments found. ALLERGIES No Known Allergies Objective PHYSICAL EXAM: General: alert and oriented and healthy appearance. Pertinent negatives noted - not distressed. Skin: normal color, no rash or lesions. HEENT: EOM intact. Cardiovascular: Pulse characterized as divine.Pertinent negatives noted - no murmur, no rub and no gallop. +HR 53. Respiratory: normal breath sounds, no wheezes or crackles. No chest wall deformity or tenderness. Abdomen: bowel sounds present. Extremities: no deformity, no edema or tenderness, no joint swelling or clubbing. Neurological: normal cognition and motor skills. Gait normal. No weakness or sensory deficit. PAIN ASSESSMENT: Pain Pain Level: 0 VITALS: BP 138/82 Pulse 53 Temp 96.8 Resp 16 Ht 5' 5.98 (1.68m) Wt 156 lb 6.4 oz (70.9kg) SpO2 99% BMI 25.26 kg/(m^2). Diagnostic tests reviewed for today's visit: Lab Value Units Date High Low HB 12.2 g/dL 07/26/2024 17.0 13.0 HCT 38.1 % 07/26/2024 51.0 39.0 WBC 7.32 k/uL 07/26/2024 11.00 3.70 PLT 156 k/uL 07/26/2024 400 150 NA 139 mmol/L 07/26/2024 144 136 K 4.9 mmol/L 07/26/2024 5.1 3.7 GLUC 106 mg/dL 07/26/2024 99 74 BUN 34 mg/dL 07/26/2024 24 9 CREAT 1.54 mg/dL 07/26/2024 1.22 0.73 PTSEC No results within date range. INR No results within date range. APTT No results within date range. ALT 12 U/L 07/26/2024 54 10 AST 19 U/L 07/26/2024 40 14 TBILI 0.3 mg/dL 07/26/2024 1.3 0.2 TSH No results within date range. Lab Value Units Date High Low HCGQT No results within date range. UHCG No results within date range. HCG, BODY* No results within date range. Lab Value Units Date High Low ABORHD No results within date range. ABSCREEN No results within date range. No results found for: HBA1C No results found for this or any previous visit (from the past 8760 hours). No results found for this or any previous visit (from the past 53763 hours). Implantable Devices: None Assessment/Plan Malignant neoplasm of urinary bladder, unspecified site (HCC) [C67.9] Gross hematuria [R31.0] PLAN Planned Procedure: Procedure(s): CYSTOSCOPY RIGID (N/A) EXCISION BLADDER TUMOR SMALL (0.5 UP TO 2.0 CM) (N/A) INSERTION STENT DOUBLE J (Left) The Following Tests/Procedures Have Been Initiated: Urine culture ordered in epic by surgeon Instructions Given to Patient: Instructions located in the after visit summary. Patient given verbal and written preop instructions and voices comprehension and compliance. I spent a total of 40 minutes on the date of the service which included preparing to see the patient, [id number] patient care, completing clinical documentation, obtaining and/or reviewing separately obtained history, performing a medically appropriate examination, and counseling and educating the patient/family/caregiver. SIGNATURE: Corrine Pichardo APRN.CNP PATIENT NAME: Abelardo Ivory DATE: August 16, 2024 TIME: 7:23 AM PAGER/CONTACT #: documented in this encounter [facility] 08-07-2024 Note HNO ID: [id number] Author: RAKEL VERDUGO LPN Service: ? Author Type: LICENSED NURSE Type: Progress Notes Filed: 08/07/2024 14:06 Note Text: Additional intake questions: Has the patient had fever, nausea, vomiting, diarrhea, constipation, fatigue for > 1 week? No Does the patient have a decreased appetite? No Does patient want to see a Artists' Booking Representative? No (yes to any of above refer patient to schedulers for dietitian appointment) ) Does patient have any new or increased numbness or tingling of extremities? No Is patient interested in fertility information? No Does patient need any prescription refills? No Does patient have an advanced directive in place? Yes, copies are in [employer] Electronically Signed By: Rakel Verdugo LPN [facility] 08-07-2024 History of Presen t illness Narrative Additional intake questions: Has the patient had fever, nausea, vomiting, diarrhea, constipation, fatigue for > 1 week? No Does the patient have a decreased appetite? No Does patient want to see a Artists' Booking Representative? No (yes to any of above refer patient to schedulers for dietitian appointment) ) Does patient have any new or increased numbness or tingling of extremities? No Is patient interested in fertility information? No Does patient need any prescription refills? No Does patient have an advanced directive in place? Yes, copies are in [facility] ON[facility] INITIAL CONSULT NOTE Date of Service: July 26, 2024 CHIEF COMPLAINT: Muscle invasive bladder cancer Oncologic History: June 2024, began experiencing flank pain, and hematuria, [place] bladder tumor, and a CT scan with contrast was performed. The urologist attempted resection but was unable to remove the entire tumor. He underwent aortic valve replacement and coronary artery bypass grafting in 2019, during which a blocked artery was addressed. AAA repair 2021. TURBT 06/27/24- HG [facility] CT A/P: diffuse circumferential thickening with soft tissue stranding. Imaging - no metastases on CT A/P Smokes 1/2 ppd, in the past 1-1.5 ppd since age 15 years ROS: 14 point ROS neg other than the symptoms noted above in the HPI. 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 Hyperlipidemia Juxtarenal ruptured abdominal aortic aneurysm (AAA) 12/28/2021 PMH - PAST MEDICAL HISTORY OF 1979 left wrist fracture PUD (peptic ulcer disease) PAST SURGICAL HISTORY Procedure Laterality Date CABG (1) VEIN GRAFT & ARTERIAL GRAFT 02/12/2019 AVR and CABG x1 PAST SURGICAL HISTORY OF cyst removed from back Social History Tobacco Use Smoking status: Every Day Current packs/day: 0.00 Average packs/day: 1 pack/day for 40.0 years (40.0 ttl pk-yrs) Types: Cigarettes Start date: 01/30/1979 Last attempt to quit: 01/30/2019 Years since quittin.4 Smokeless tobacco: Never Tobacco comments: started smoking 15yo, usually 1 PPD Vaping Use Vaping status: Never Used Substance Use Topics Alcohol use: No Drug use: No ALLERGIES No Known Allergies Current Outpatient Medications Medication Sig Dispense Refill oxyCODONE IR (ROXICODONE) 5 mg immediate release tablet Take 1-2 tablets by mouth every 8 hours as needed for up to 9 doses. (Patient not taking: Reported on 02/03/2022) 9 tablet 0 acetaminophen (TYLENOL) 325 mg tablet Take 2 tablets by mouth every 4 hours. docusate sodium (COLACE) 100 mg capsule Take 1 capsule by mouth twice daily. (Patient not taking: Reported on 02/03/2022) rosuvastatin (CRESTOR) 5 mg tablet Take 5 mg by mouth once daily. iv contrast (will be provided with radiology test) CT Cardiac - No IV access, insert saline lock prior to the sedation, infusion, injection for imaging exam. Discontinue saline lock post exam. If Pt. has a central line or IVAD, may access for administration according to line specific nursing protocol. Once exam is complete flush line and de-access according to line specific nursing protocol in the CT contrast administration guidelines link. (Patient not taking: No sig reported) 1 Each 0 Omeprazole 40 mg capsule Take 1 capsule by mouth once daily. 30 capsule 0 aspirin 81 mg chewable tablet Take 1 tablet by mouth once daily. 30 tablet 0 albuterol HFA (PROAIR HFA) 90 mcg/actuation inhaler Inhale 2 Puffs as instructed every 4 hours as needed for Wheezing/Shortness of Breath. 1 Inhaler 1 metoprolol tartrate, short acting, (LOPRESSOR) 25 mg tablet Take 0.5 tablets by mouth every 12 hours. 30 tablet 1 No current facility-administered medications for this visit. Physical Exam ECOG performance status of 0- Fully active, able to carry on all pre-disease performance w/o restriction. Vital signs: BP 150/67 Pulse (!) 50 Temp 36.3 C (97.3 F) Resp 18 Ht 167.6 cm (5' 6) Wt 71.1 kg (156 lb 12 oz) SpO2 97% BMI 25.30 kg/m Focused PE normal LABORATORY AND IMAGING DATA Reviewed ASSESSMENT AND PLAN: MIBC Needs restaging CT TAP Labs today Urology consult Reviewed the logistics of neoadjuvant treatment followed by RC Interested in bladder preservation-we reviewed the RAD SG trial and general logistics. Given ICF for RAD SG trial. I spent a total of 40 minutes on the date of the service which included preparing to see the patient, [id number] patient care, completing clinical documentation, obtaining and/or reviewing separately obtained history, performing a medically appropriate examination, counseling and educating the patient/family/caregiver, ordering medications, tests, or procedures, communicating with other HCPs (not separately reported), independently interpreting results (not separately reported), communicating results to the patient/family/caregiver, and care coordination (not separately reported). Codey Christianson MD Staff Physician Department of Hematology and [place] [address] Additional intake questions: Has the patient had fever, nausea, vomiting, diarrhea, constipation, fatigue for > 1 week? No Does the patient have a decreased appetite? No Does patient want to see a Artists' Booking Representative? No (yes to any of above refer patient to schedulers for dietitian appointment) ) Does patient have any new or increased numbness or tingling of extremities? No Is patient interested in fertility information? No Does patient need any prescription refills? No Does patient have an advanced directive in place? Yes, copies are in [employer] Additional intake questions: Has the patient had fever, nausea, vomiting, diarrhea, constipation, fatigue for > 1 week? No Does the patient have a decreased appetite? No Does patient want to see a Artists' Booking Representative? No (yes to any of above refer patient to schedulers for dietitian appointment) ) Does patient have any new or increased numbness or tingling of extremities? No Is patient interested in fertility information? No Does patient need any prescription refills? No Does patient have an advanced directive in place? Yes, copies are in [employer] documented in this encounter [facility] 08-03-2024 Telephone encounter Note CASE [id number]: Spoke with patient, states he is still undecided regarding the study. States he is seeing urology locally and will need a stent. Patient states he should find out next week when that will be placed. Discussed travel/lodging and let patient know SW can be of assistance as well as looking into his insurance. Patient requested a call back after 10 of August hol. Patient will need repeat TURBT at [facility] due to previously being done at [facility]. [facility] 08-03-2024 Miscellaneous Notes CASE [id number]: Spoke with patient, states he is still undecided regarding the study. States he is seeing urology locally and will need a stent. Patient states he should find out next week when that will be placed. Discussed travel/lodging and let patient know SW can be of assistance as well as looking into his insurance. Patient requested a call back after 10 of August hol. Patient will need repeat TURBT at [facility] due to previously being done at [facility]. documented in this encounter [facility] 08-02-2024 History of Presen t illness Narrative NEW PATIENT HISTORY AND PHYSICAL EXAM HISTORY OF PRESENT ILLNESS No chief complaint on file. Abelardo Ivory is a 74 year old male who presents w/dtr as a new patient for evaluation of remote h/o bladder cancer He underwent aortic valve replacement and coronary artery bypass grafting in 2019, during which a blocked artery was addressed. AAA repair 2021. Smokes 1/2 ppd, in the past 1-1.5 ppd since age 15 years LAB RESULTS Creatinine Date Value Ref Range Status 07/26/2024 1.54 (H) 0.73 - 1.22 mg/dL Final PSA (ng/mL) Date Value 09/07/2012 0.46 Color (no units) Date Value 02/06/2019 Yellow Clarity (no units) Date Value 02/06/2019 Clear Glucose, Urine (mg/dL) Date Value 02/06/2019 Negative Bilirubin, Urine (no units) Date Value 02/06/2019 Negative Ketones, Urine (no units) Date Value 02/06/2019 Negative Specific [place], Ur (no units) Date Value 02/06/2019 1.017 Hemoglobin/Blood,Ur ( ) Date Value 02/06/2019 1+ pH, Urine (no units) Date Value 02/06/2019 6.0 Protein, Urine (mg/dL) Date Value 02/06/2019 Negative Urobilinogen (no units) Date Value 02/06/2019 Normal Nitrites (no units) Date Value 02/06/2019 Negative Leukest (no units) Date Value 02/06/2019 Negative REVIEW OF SYSTEMS (10) ALLERGIC See allergies listed above GENERAL:no unintentional weight loss, healthy appearing male in no distress RESPIRATORY: Negative for cough, wheezing or shortness of breath. CARDIOVASCULAR: occ leg swelling/edema. GASTROINTESTINAL: no nausea/emesis GENITOURINARY: nocturia MUSCULOSKELETAL: Not complaining of muscle pain NEUROLOGIC:alert and oriented SKIN warm and dry PSYCHIATRIC: not complaining of depression/anxiety The remainder of the ROS was reviewed and is negative. MEDICATIONS: oxyCODONE IR (ROXICODONE) 5 mg immediate release tablet Take 1-2 tablets by mouth every 8 hours as needed for up to 9 doses. (Patient not taking: Reported on 02/03/2022) acetaminophen (TYLENOL) 325 mg tablet Take 2 tablets by mouth every 4 hours. docusate sodium (COLACE) 100 mg capsule Take 1 capsule by mouth twice daily. (Patient not taking: Reported on 02/03/2022) rosuvastatin (CRESTOR) 5 mg tablet Take 5 mg by mouth once daily. iv contrast (will be provided with radiology test) CT Cardiac - No IV access, insert saline lock prior to the sedation, infusion, injection for imaging exam. Discontinue saline lock post exam. If Pt. has a central line or IVAD, may access for administration according to line specific nursing protocol. Once exam is complete flush line and de-access according to line specific nursing protocol in the CT contrast administration guidelines link. (Patient not taking: No sig reported) Omeprazole 40 mg capsule Take 1 capsule by mouth once daily. aspirin 81 mg chewable tablet Take 1 tablet by mouth once daily. albuterol HFA (PROAIR HFA) 90 mcg/actuation inhaler Inhale 2 Puffs as instructed every 4 hours as needed for Wheezing/Shortness of Breath. metoprolol tartrate, short acting, (LOPRESSOR) 25 mg tablet Take 0.5 tablets by mouth every 12 hours. ALLERGIES No Known Allergies HISTORIES 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 Hyperlipidemia Juxtarenal ruptured abdominal aortic aneurysm (AAA) 12/28/2021 PMH - PAST MEDICAL HISTORY OF 1979 left wrist fracture PUD (peptic ulcer disease) PAST SURGICAL HISTORY Procedure Laterality Date CABG (1) VEIN GRAFT & ARTERIAL GRAFT 02/12/2019 AVR and CABG x1 PAST SURGICAL HISTORY OF cyst removed from back FAMILY HISTORY Problem Relation Age of Onset Diabetes Mother Emphysema Mother Asthma Sister Cancer Brother Aneurysm No Family History SOCIAL HISTORY Social History Tobacco Use Smoking status: Every Day Current packs/day: 0.00 Average packs/day: 1 pack/day for 40.0 years (40.0 ttl pk-yrs) Types: Cigarettes Start date: 01/30/1979 Last attempt to quit: 01/30/2019 Years since quittin.5 Smokeless tobacco: Never Tobacco comments: started smoking 15yo, usually 1 PPD Vaping Use Vaping status: Never Used Substance Use Topics Alcohol use: No Drug use: No There were no vitals taken for this visit. PHYSICAL EXAM: (8) General Appearance: Well appearing, alert, in no acute distress, well-hydrated, well nourished.. Skin: Skin color, texture, turgor normal. Respiratory: Normal respritory effort no wheezing Genitourinary: Exam NOT Indicated Neurologic alert and oriented Psych nl affect and mood 07/31/2024 CT a/p mild left hydro, bladder mass 07/31/2024 2nd opinion path HG T2 +[facility] 07/26/2024 Scr 1.5 01/01/2022 Scr 2.6 Assessment and Plan: CRF- pt with chronic RI, latest eGFR 47 Bladder cancer- s/p TURBT in [place] (?? urologist) pt with T2 dx, told him he needs neoadjuvant chemo (has already seen oncology, Dr Christianson @ [facility]) followed by radical cystectomy; they are not sure of the treatment plan but will need to see Urology @ [facility] if desires cystectomy Left hydro- pt sent here by oncology due to hydro, CT reviewed, he denies CVAT. We discussed options of a left stent and he has residual tumor in the bladder so I told them possible that will be unable to place cystoscopically and will need PNT/stent; regardless will need to be changed Q3-4 mths. He understands and wants to proceed Schedule cysto, TURBT, left stent @ [facility] documented in this encounter [facility] 08-02-2024 Note HNO ID: [id number] Author: STACY GAUTHIER MD Service: ? Author Type: Physician Type: Progress Notes Filed: 08/21/2024 16:01 Note Text: NEW PATIENT HISTORY AND PHYSICAL EXAM HISTORY OF PRESENT ILLNESS No chief complaint on file. Abelardo Ivory is a 74 year old male who presents w/dtr as a new patient for evaluation of remote h/o bladder cancer He underwent aortic valve replacement and coronary artery bypass grafting in 2019, during which a blocked artery was addressed. AAA repair 2021. Smokes 1/2 ppd, in the past 1-1.5 ppd since age 15 years LAB RESULTS Creatinine Date Value Ref Range Status 07/26/2024 1.54 (H) 0.73 - 1.22 mg/dL Final PSA (ng/mL) Date Value 09/07/2012 0.46 Color (no units) Date Value 02/06/2019 Yellow Clarity (no units) Date Value 02/06/2019 Clear Glucose, Urine (mg/dL) Date Value 02/06/2019 Negative Bilirubin, Urine (no units) Date Value 02/06/2019 Negative Ketones, Urine (no units) Date Value 02/06/2019 Negative Specific [place], Ur (no units) Date Value 02/06/2019 1.017 Hemoglobin/Blood,Ur ( ) Date Value 02/06/2019 1+ pH, Urine (no units) Date Value 02/06/2019 6.0 Protein, Urine (mg/dL) Date Value 02/06/2019 Negative Urobilinogen (no units) Date Value 02/06/2019 Normal Nitrites (no units) Date Value 02/06/2019 Negative Leukest (no units) Date Value 02/06/2019 Negative REVIEW OF SYSTEMS (10) ALLERGIC See allergies listed above GENERAL:no unintentional weight loss, healthy appearing male in no distress RESPIRATORY: Negative for cough, wheezing or shortness of breath. CARDIOVASCULAR: occ leg swelling/edema. GASTROINTESTINAL: no nausea/emesis GENITOURINARY: nocturia MUSCULOSKELETAL: Not complaining of muscle pain NEUROLOGIC:alert and oriented SKIN warm and dry PSYCHIATRIC: not complaining of depression/anxiety The remainder of the ROS was reviewed and is negative. MEDICATIONS: oxyCODONE IR (ROXICODONE) 5 mg immediate release tablet Take 1-2 tablets by mouth every 8 hours as needed for up to 9 doses. (Patient not taking: Reported on 02/03/2022) acetaminophen (TYLENOL) 325 mg tablet Take 2 tablets by mouth every 4 hours. docusate sodium (COLACE) 100 mg capsule Take 1 capsule by mouth twice daily. (Patient not taking: Reported on 02/03/2022) rosuvastatin (CRESTOR) 5 mg tablet Take 5 mg by mouth once daily. iv contrast (will be provided with radiology test) CT Cardiac - No IV access, insert saline lock prior to the sedation, infusion, injection for imaging exam. Discontinue saline lock post exam. If Pt. has a central line or IVAD, may access for administration according to line specific nursing protocol. Once exam is complete flush line and de-access according to line specific nursing protocol in the CT contrast administration guidelines link. (Patient not taking: No sig reported) Omeprazole 40 mg capsule Take 1 capsule by mouth once daily. aspirin 81 mg chewable tablet Take 1 tablet by mouth once daily. albuterol HFA (PROAIR HFA) 90 mcg/actuation inhaler Inhale 2 Puffs as instructed every 4 hours as needed for Wheezing/Shortness of Breath. metoprolol tartrate, short acting, (LOPRESSOR) 25 mg tablet Take 0.5 tablets by mouth every 12 hours. ALLERGIES No Known Allergies HISTORIES 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 Hyperlipidemia Juxtarenal ruptured abdominal aortic aneurysm (AAA) 12/28/2021 PMH - PAST MEDICAL HISTORY OF 1979 left wrist fracture PUD (peptic ulcer disease) PAST SURGICAL HISTORY Procedure Laterality Date CABG (1) VEIN GRAFT AND ARTERIAL GRAFT 02/12/2019 AVR and CABG x1 PAST SURGICAL HISTORY OF cyst removed from back FAMILY HISTORY Problem Relation Age of Onset Diabetes Mother Emphysema Mother Asthma Sister Cancer Brother Aneurysm No Family History SOCIAL HISTORY Social History Tobacco Use Smoking status: Every Day Current packs/day: 0.00 Average packs/day: 1 pack/day for 40.0 years (40.0 ttl pk-yrs) Types: Cigarettes Start date: 01/30/1979 Last attempt to quit: 01/30/2019 Years since quittin.5 Smokeless tobacco: Never Tobacco comments: started smoking 15yo, usually 1 PPD Vaping Use Vaping status: Never Used Substance Use Topics Alcohol use: No Drug use: No There were no vitals taken for this visit. PHYSICAL EXAM: (8) General Appearance: Well appearing, alert, in no acute distress, well-hydrated, well nourished.. Skin: Skin color, texture, turgor normal. Respiratory: Normal respritory effort no wheezing Genitourinary: Exam NOT Indicated Neurologic alert and oriented Psych nl affect and mood 07/31/2024 CT c/a/p mild (more content not included)... [facility] 07-31-2024 History of Presen t illness Narrative Radiology Service Progress Note DATE OF SERVICE: July 31, 2024 TIME: 2:25 PM PATIENT IDENTITY VERIFICATION COMPLETED USING TWO (2) STANDARD IDENTIFIERS: Name and Date of confirmed by patient verbally. FALL SCREENING: Has the patient had 2 falls in the last year or 1 fall with injury or currently using an Ambulatory Assistive Device (Walker, Cane, Wheelchair, Crutches, etc.)? No PATIENT GENDER DATA: Assigned male at PATIENT RELEVANT IMPLANT DATA REVIEWED: Yes PATIENT PRESENTS WITH AN IMPLANTABLE OR ATTACHED MOTOR VEHICLE DISPATCHER: No ALLERGIES: Reviewed and unchanged CONTRAST ALLERGY: NO. EXAM: CT -CONTRAST INDUCED NEPHROPATHY RISK FACTORS: Patient age > 60 years CREATININE: Creatinine Date Value Ref Range Status 07/26/2024 1.54 (H) 0.73 - 1.22 mg/dL Final 01/03/2022 2.46 (H) 0.73 - 1.22 mg/dL Final 01/02/2022 2.49 (H) 0.73 - 1.22 mg/dL Final Estimated Glomerular Filtration Rate Date Value Ref Range Status 07/26/2024 47 (L) >=60 mL/min/1.73m Final Comment: Estimated Glomerular Filtration Rate (eGFR) is calculated using the 2020 CKD-EPI creatinine equation. This equation utilizes serum creatinine, sex, and age as parameters. The creatinine assay has traceable calibration to isotope dilution-mass spectrometry. Refer to KDIGO guidelines for clinical interpretation. In patients with unstable renal function, e.g. those with acute kidney injury, the eGFR may not accurately reflect actual GFR. eGFR- (POCT) Date Value Ref Range Status 10/08/2019 >60 mL/min/1.73 m2 Final P.O.C.T. RESULTS: POC done: Yes, See Lab Tab July 31, 2024 TREATMENT: N/A PERIPHERAL IV DATA: Ambulatory: A peripheral IV was started in the Left antecubital site with a Angio cath: 22 gauge. RADIOLOGY DEPARTMENT: CT; Exam(s) Completed: Chest Abdomen Pelvis SIGNATURE: RT Lenin(Manoj) PATIENT NAME: Abelardo Ivory DATE: July 31, 2024 TIME: 2:25 PM documented in this encounter [facility] 07-31-2024 Note HNO ID: [id number] Author: SAMMI NUNEZ RT(R) Service: ? Author Type: Customer Solutions Architect Type: Progress Notes Filed: 07/31/2024 14:26 Note Text: Radiology Service Progress Note DATE OF SERVICE: July 31, 2024 TIME: 2:25 PM PATIENT IDENTITY VERIFICATION COMPLETED USING TWO (2) STANDARD IDENTIFIERS: Name and Date of confirmed by patient verbally. FALL SCREENING: Has the patient had 2 falls in the last year or 1 fall with injury or currently using an Ambulatory Assistive Device (Walker, Cane, Wheelchair, Crutches, etc.)? No PATIENT GENDER DATA: Assigned male at PATIENT RELEVANT IMPLANT DATA REVIEWED: Yes PATIENT PRESENTS WITH AN IMPLANTABLE OR ATTACHED MOTOR VEHICLE DISPATCHER: No ALLERGIES: Reviewed and unchanged CONTRAST ALLERGY: NO. EXAM: CT -CONTRAST INDUCED NEPHROPATHY RISK FACTORS: Patient age > 60 years CREATININE: Creatinine Date Value Ref Range Status 07/26/2024 1.54 (H) 0.73 - 1.22 mg/dL Final 01/03/2022 2.46 (H) 0.73 - 1.22 mg/dL Final 01/02/2022 2.49 (H) 0.73 - 1.22 mg/dL Final Estimated Glomerular Filtration Rate Date Value Ref Range Status 07/26/2024 47 (L) >=60 mL/min/1.73m? Final Comment: Estimated Glomerular Filtration Rate (eGFR) is calculated using the 2020 CKD-EPI creatinine equation. This equation utilizes serum creatinine, sex, and age as parameters. The creatinine assay has traceable calibration to isotope dilution-mass spectrometry. Refer to KDIGO guidelines for clinical interpretation. In patients with unstable renal function, e.g. those with acute kidney injury, the eGFR may not accurately reflect actual GFR. eGFR- (POCT) Date Value Ref Range Status 10/08/2019 >60 mL/min/1.73 m2 Final P.O.C.T. RESULTS: POC done: Yes, See Lab Tab July 31, 2024 TREATMENT: N/A PERIPHERAL IV DATA: Ambulatory: A peripheral IV was started in the Left antecubital site with a Angio cath: 22 gauge. RADIOLOGY DEPARTMENT: CT; Exam(s) Completed: Chest Abdomen Pelvis SIGNATURE: RT Lenin(R) PATIENT NAME: Abelardo Ivory DATE: July 31, 2024 TIME: 2:25 PM [facility] 07-26-2024 Note HNO ID: [id number] Author: FARHEEN VALENTINE RN Service: ? Author Type: Registered Nurse Type: Progress Notes Filed: 07/26/2024 11:46 Note Text: Informed Consent Presentation IRB# [id number] Title: CASE [id number] Adaptive RADiation therapy with concurrent Sacituzumab Govitecan (SG) for bladder preservation in patients with MIBC (RAD-SG). Consent expiration date 04/15/2025 Spoke with patient and family at the request of Dr. Codey Christianson MD-- . Treatment plan, including all testing, potential risks/benefits, side effects and management, treatment alternatives, and follow-up explained. Roles of the clinical trial personnel to be involved and the financial responsibilities regarding procedures and medications were discussed. Discussed the importance of effective contraception during and following completion of active therapy for 3 month(s). Initial questions were answered and a copy of the informed consent was given to patient with the instructions to read it and call with any additional questions. Contact information for the research nurse was given to the patient. The patient verbalized appropriate understanding of all the aforementioned information presented. Time of Presentation: 1020 Farheen Sommers RN [facility] 07-26-2024 History of Presen t illness Narrative Informed Consent Presentation IRB# [id number] Title: CASE [id number] Adaptive RADiation therapy with concurrent Sacituzumab Govitecan (SG) for bladder preservation in patients with MIBC (RAD-SG). Consent expiration date 04/15/2025 Spoke with patient and family at the request of Dr. Codey Christianson MD-- . Treatment plan, including all testing, potential risks/benefits, side effects and management, treatment alternatives, and follow-up explained. Roles of the clinical trial personnel to be involved and the financial responsibilities regarding procedures and medications were discussed. Discussed the importance of effective contraception during and following completion of active therapy for 3 month(s). Initial questions were answered and a copy of the informed consent was given to patient with the instructions to read it and call with any additional questions. Contact information for the research nurse was given to the patient. The patient verbalized appropriate understanding of all the aforementioned information presented. Time of Presentation: 1020 Farheen Sommers RN documented in this encounter [facility] 07-26-2024 Note HNO ID: [id number] Author: CODEY CHRISTIANSON MD Service: ? Author Type: Physician Type: Progress Notes Filed: 08/07/2024 14:06 Note Text: [facility] ONCOLOGY INITIAL CONSULT NOTE Date of Service: July 26, 2024 CHIEF COMPLAINT: Muscle invasive bladder cancer Oncologic History: June 2024, began experiencing flank pain, and hematuria, [place] revealed a bladder tumor, and a CT scan with contrast was performed. The urologist attempted resection but was unable to remove the entire tumor. He underwent aortic valve replacement and coronary artery bypass grafting in 2019, during which a blocked artery was addressed. AAA repair 2021. TURBT 06/27/24- HG MIBC CT A/P: diffuse circumferential thickening with soft tissue stranding. Imaging - no metastases on CT A/P Smokes 1/2 ppd, in the past 1-1.5 ppd since age 15 years ROS: 14 point ROS neg other than the symptoms noted above in the HPI. 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 Hyperlipidemia Juxtarenal ruptured abdominal aortic aneurysm (AAA) 12/28/2021 PMH - PAST MEDICAL HISTORY OF 1979 left wrist fracture PUD (peptic ulcer disease) PAST SURGICAL HISTORY Procedure Laterality Date CABG (1) VEIN GRAFT AND ARTERIAL GRAFT 02/12/2019 AVR and CABG x1 PAST SURGICAL HISTORY OF cyst removed from back Social History Tobacco Use Smoking status: Every Day Current packs/day: 0.00 Average packs/day: 1 pack/day for 40.0 years (40.0 ttl pk-yrs) Types: Cigarettes Start date: 01/30/1979 Last attempt to quit: 01/30/2019 Years since quittin.4 Smokeless tobacco: Never Tobacco comments: started smoking 15yo, usually 1 PPD Vaping Use Vaping status: Never Used Substance Use Topics Alcohol use: No Drug use: No ALLERGIES No Known Allergies Current Outpatient Medications Medication Sig Dispense Refill oxyCODONE IR (ROXICODONE) 5 mg immediate release tablet Take 1-2 tablets by mouth every 8 hours as needed for up to 9 doses. (Patient not taking: Reported on 02/03/2022) 9 tablet 0 acetaminophen (TYLENOL) 325 mg tablet Take 2 tablets by mouth every 4 hours. docusate sodium (COLACE) 100 mg capsule Take 1 capsule by mouth twice daily. (Patient not taking: Reported on 02/03/2022) rosuvastatin (CRESTOR) 5 mg tablet Take 5 mg by mouth once daily. iv contrast (will be provided with radiology test) CT Cardiac - No IV access, insert saline lock prior to the sedation, infusion, injection for imaging exam. Discontinue saline lock post exam. If Pt. has a central line or IVAD, may access for administration according to line specific nursing protocol. Once exam is complete flush line and de-access according to line specific nursing protocol in the CT contrast administration guidelines link. (Patient not taking: No sig reported) 1 Each 0 Omeprazole 40 mg capsule Take 1 capsule by mouth once daily. 30 capsule 0 aspirin 81 mg chewable tablet Take 1 tablet by mouth once daily. 30 tablet 0 albuterol HFA (PROAIR HFA) 90 mcg/actuation inhaler Inhale 2 Puffs as instructed every 4 hours as needed for Wheezing/Shortness of Breath. 1 Inhaler 1 metoprolol tartrate, short acting, (LOPRESSOR) 25 mg tablet Take 0.5 tablets by mouth every 12 hours. 30 tablet 1 No current facility-administered medications for this visit. Physical Exam ECOG performance status of 0- Fully active, able to carry on all pre-disease performance w/o restriction. Vital signs: BP 150/67 Pulse (!) 50 Temp 36.3 ?C (97.3 ?F) Resp 18 Ht 167.6 cm (5' 6) Wt 71.1 kg (156 lb 12 oz) SpO2 97% BMI 25.30 kg/m? Focused PE normal LABORATORY AND IMAGING DATA Reviewed ASSESSMENT AND PLAN: MIBC Needs restaging CT TAP Labs today Urology consult Reviewed the logistics of neoadjuvant treatment followed by [facility] Interested in bladder preservation-we reviewed the RAD SG trial and general logistics. Given ICF for RAD SG trial. I spent a total of 40 minutes on the date of the service which included preparing to see the patient, [id number] patient care, completing clinical documentation, obtaining and/or reviewing separately obtained history, performing a medically appropriate examination, counseling and educating the patient/family/caregiver, ordering medications, tests, or procedures, communicating with other HCPs (not separately reported), independently interpreting results (not separately reported), communicating results to the patient/family/caregiver, and care coordination (not separately reported). Codey Christianson MD Staff Physician Department of Hematology and Medical Oncology [facility] (more content not included)... [facility] 07-26-2024 Note HNO ID: [id number] Author: RAKEL VERDUGO LPN Service: ? Author Type: LICENSED NURSE Type: Progress Notes Filed: 08/07/2024 14:06 Note Text: Additional intake questions: Has the patient had fever, nausea, vomiting, diarrhea, constipation, fatigue for > 1 week? No Does the patient have a decreased appetite? No Does patient want to see a Artists' Booking Representative? No (yes to any of above refer patient to schedulers for dietitian appointment) ) Does patient have any new or increased numbness or tingling of extremities? No Is patient interested in fertility information? No Does patient need any prescription refills? No Does patient have an advanced directive in place? Yes, copies are in [employer] Electronically Signed By: Rakel Verdugo LPN [facility] 07-26-2024 Note HNO ID: [id number] Author: RAKEL VERDUGO LPN Service: ? Author Type: LICENSED NURSE Type: Progress Notes Filed: 08/07/2024 14:06 Note Text: Additional intake questions: Has the patient had fever, nausea, vomiting, diarrhea, constipation, fatigue for > 1 week? No Does the patient have a decreased appetite? No Does patient want to see a Artists' Booking Representative? No (yes to any of above refer patient to schedulers for dietitian appointment) ) Does patient have any new or increased numbness or tingling of extremities? No Is patient interested in fertility information? No Does patient need any prescription refills? No Does patient have an advanced directive in place? Yes, copies are in [employer] Electronically Signed By: Rakel Verdugo LPN [facility] 06-28-2024 Note [facility] Medical Records Department [address] [place] [address] Discharge Summary 06/28/24 0648 MR#: [id number] Acct: [id number] Name: ABELARDO IVORY Rep #: [id number] : 1950 74 From: Pradip Mcclendon MD PCP: Dr. Padmini Carrasco MD Status:[facility] Location: [place] [address] Providers Date of Admission: 06/27/24 Date of Discharge: 06/28/24 Primary Care Physician: Dr. Padmini Carrasco MD Reason For Visit: Cysto,Transurethal Resec Bladder,[employer] Medications at Discharge Home Medications aspirin 81 mg tablet,delayed release 81 mg PO DAILY heart health 03/02/22 Held on 06/27/24. Instructions: Resume on 07/11/24. rosuvastatin 5 mg tablet (Crestor) 5 mg PO DAILY cholesterol 03/02/22 amlodipine 5 mg tablet 5 mg PO DAILY #30 tabs 02/28/23 cholecalciferol (vitamin D3) 25 mcg (1,000 unit) capsule 25 mcg PO DAILY 10/27/23 metoprolol tartrate 25 mg tablet 12.5 mg (1/2 x 25 mg) PO BID #90 tabs 03/22/24 acetaminophen 500 mg capsule 1,000 mg PO Q6H PRN pain 06/13/24 fluticasone fur. 200 mcg-umeclid 62.5 mcg-vilant 25 mcg inhalat.powder (Trelegy Ellipta) 1 inh inhalation DAILY PRN SOB 06/13/24 ibuprofen 600 mg tablet 600 mg PO Q6H PRN pain #20 tabs 06/27/24 Hospital Course Operations - (Transurethral resection of large bladder mass) Summary of Care Provided Minutes Spent on Discharge: 20 Hospital Course: 74-year-old male long history of smoking as well invasive looking bladder tumor status post resection, tumor is invasive, he is got left hydronephrosis, creatinine is getting worse recommended a nephrostomy tube he refused. Discussed options of management for his cancer he could have a cystectomy, not sure if he can get chemotherapy because of his creatinines too high, we could consider radiation therapy. For now he will go home follow-up in the office 2 weeks to review the pathology report and then will refer to medical oncology as he does not want a cystectomy. Weight / BMI Weight Weight: 72 kg Body Mass Index (BMI) 25.6 ABG / Lab / Microbiology Data 06/28/24 04:47 06/28/24 04:47 Laboratory: Laboratory Results - last 24 hr 06/28/24 04:47: WBC 8.1, RBC 3.93 L, Hgb 12.0 L, Hct 36.7 L, MCV 93.4, MCH 30.5, MCHC 32.7, RDW Std Deviation 46.7 H, RDW Coeff of Manjit 13.6, Plt Count 175, MPV 9.1, Immature Gran % (Auto) 0.200, Neut % (Auto) 80.8 H, Lymph % (Auto) 11.9 L, [place] % (Auto) 7.0, Eos % (Auto) 0.0, Baso % (Auto) 0.1, Absolute Neuts (auto) 6.6, Absolute Lymphs (auto) 0.97, Nucleated RBC % 0, Sodium 133, Potassium 5.6 H, Chloride 102, Carbon Dioxide 20.1 L, Anion Gap 12, BUN 48 H, Creatinine 2.95 H, Estim Creat Clear Calc 19.82 L, Est GFR (MDRD) Non-Af 22 L, BUN/Creatinine Ratio 16.4, Glucose 132 H, Calcium 8.1 D/C Instructions Discharge Diet: No restrictions Call your doctor if you observe: Fever of 101 or Higher DC O2, CPAP, BIPAP Needs Home O2 Discharge instructions: No Please Follow Up With: Pradip Mcclendon MD When: Call [phone] for an appointment Meaningful Use Info Meaningful Use Meaningful Use Diagnoses (Choose all that apply): None applicable Ischemic Stroke Statin Dosing Therapy Reference: STATIN DOSE THERAPY REFERENCE: * Patients > 75 years receive moderate or high dose statin therapy. * Patients 75 years or YOUNGER should receive HIGH intensity statin dose unless contraindicated. You will be required to document reason for non-treatment if statin daily dose does not meet guidelines. HIGH DOSE STATIN THERAPY DAILY Atorvastatin > than or = to 40 mg Rosuvastatin > than or = to 20 mg Amlodipine + Atorvastatin > than or = to 2.5/40 mg Ezetimibe + Simvastatin 10/80 mg Simvastatin 80mg Discharge Plan Admission Admit Date/Time: 06/27/24 15:22 Primary Reason for Your Visit: Resection of bladder tumor Attending Provider: Pradip Mcclendon Primary Care Provider: Padmini Carrasco Instructions Patient Instructions: Bladder Cancer TUR Discharge Orders/Prescriptions Prescriptions: New ibuprofen 600 mg tablet 600 mg PO Q6H PRN (Reason: pain) Qty: 20 0RF Continued amlodipine 5 mg tablet 5 mg PO DAILY Qty: 30 11RF rosuvastatin [Crestor] 5 mg tablet 5 mg PO DAILY acetaminophen 500 mg capsule 1,000 mg PO Q6H PRN (Reason: pain) Trelegy Ellipta 200-62.5-25 mcg blister with device 1 inh inhalation DAILY PRN (Reason: SOB) cholecalciferol (vitamin D3) 25 mcg (1,000 unit) capsule 25 mcg PO DAILY metoprolol tartrate 25 mg tablet 12.5 mg PO BID Qty: 90 3RF Held aspirin 81 mg tablet,delayed release (DR/EC) 81 mg PO DAILY Hold Instructions: Resume on 07/11/24. Patient Comments: STOP PER DR. MCCLENDON PRIOR TO PROCEDURE Referrals / Follow Up: Padmini Carrasco MD [Primary Care Provider] - Catrachito,Pradip Small MD [Med Staff - Active Staff] - Disp (more content not included)... [facility] 06-27-2024 Note [facility] Medical Records Department [address] [place] [address] History Physical Exam 06/27/24 0711 MR#: [id number] Acct: [id number] Name: ABELARDO IVORY Rep #: [id number] : 1950 74 From: Pradip Mcclendon MD PCP: Dr. Padmini Carrasco MD [place] [facility] [place] [address] HPI - General General Date of Service: 06/27/24 Chief Complaint: Bladder tumor HPI Narrative ABELARDO IVORY, is a 74 M who presents for transurethral resection of a bladder tumor and instillation of Mitomycin-C [facility] Medical History Wears dentures Wears glasses Bruising Easy bruising High cholesterol Smoker Shortness of breath on exertion History of echocardiogram Cardiology follow-up encounter Stage 3b chronic kidney disease (CKD) Thrombocytopenia Chronic kidney insufficiency Pleural effusion Secondary pulmonary arterial hypertension Atherosclerotic heart disease of lummi coronary artery without angina pectoris Intention tremor Carotid stenosis, bilateral Hyperlipidemia Nonrheumatic aortic (valve) stenosis Essential hypertension Tobacco dependence Bilateral inguinal hernia Left carotid bruit Abdominal aortic aneurysm (AAA) Anemia Subcutaneous mass of back PUD (peptic ulcer disease) Cough Arthritis Home Medications ???Medication ???Instructions ???Recorded ???Last Taken ???Type aspirin 81 mg tablet,delayed 81 mg PO DAILY heart health 01/12/24 History release rosuvastatin 5 mg tablet (Crestor) 5 mg PO DAILY cholesterol 03/02/22 History amlodipine 5 mg tablet 5 mg PO DAILY #30 tabs 02/28/23 Un known Rx cholecalciferol (vitamin D3) 25 25 mcg PO DAILY 10/27/23 Unknown H istory mcg (1,000 unit) capsule metoprolol tartrate 25 mg tablet 12.5 mg (1/2 x 25 mg) PO BID #90 0 03/22/24 06/27/24 05:30 Rx tabs acetaminophen 500 mg capsule 1,000 mg PO Q6H PRN pain 06/13/24 Unknown History fluticasone fur. 200 mcg-umeclid 1 inh inhalation DAILY PRN SOB 08/31 Unknown History 62.5 mcg-vilant 25 mcg inhalat.powder (Trelegy Ellipta) Allergy/AdvReac Type Severity Reaction Status Date / Time No Known Allergies Allergy Verified 06/27/24 06:56 Family History Sister Asthma Mother Arthritis Diabetes Brother Cancer Unsure what kind- just a lump on his neck Surgical History Hx of inguinal hernia repair S/P inguinal hernia repair History of cardiac catheterization S/P AAA repair 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) History of left heart catheterization (11/27/18) History of aortic valve replacement (02/12/19) Social History Smoking Status: Current every day smoker tobacco type: cigarettes quit status: has quit before alcohol intake: never substance use type: does not use caffeine: Yes Type: coffee Number of servings: 3 what type of physical activity do you participate in: other frequency: 3-4 times per week seatbelt use: always Vital Signs Vital Signs Vital Signs: 06/27/24 06:57 06/27/24 06:57 Temperature 97.8 F Temperature Source Temporal Pulse Rate 56 L Respiratory Rate 16 Respiratory Pattern Normal Blood Pressure 173/73 H Blood Pressure Mean 106 Blood Pressure Source Monitor Blood Pressure Position Sitting Blood Pressure Location Left Arm Pulse Ox 97 Oxygen Delivery Method Room Air Weight Weight: 72 kg Body Mass Index (BMI) 25.6 06/27/24 0711 Cosigner Signature (if applicable): CC: Dr. Padmini Carrasco MD; Dr. Pradip Mcclendon MD Signed [facility] 06-22-2024 Radiology Diagnostic study note [facility] Imaging Services [address] [place] [address] Abdomen/Pelvis WITH Contrast MR#: [id number] Acct: [id number] Name: ABELARDO IVORY Rep #: [id number] : 1950 M 74 From: Moses Briseno MD PCP: Dr. Padmini Carrasco MD Status: REG CLI Study:Abdomen/Pelvis WITH Contrast Date of Ex am: 06/21/24 Exam# [id number] Ordering Dr: Bhargavi Mcclendon MD PROCEDURE: ABDOMEN/PELVIS WITH CONTRAST 06/21/2024 REASON FOR EXAM: GROSS HEMATURIA TECHNIQUE: Abdomen and pelvis CT with intravenous contrast. Coronal and Sagittal reconstruction series were provided. PATIENT PREPARATION: Per protocol ORAL CONTRAST TYPE: None. CONTRAST: Isovue-300 VOLUME: 100 mL One or more dose reduction techniques were used (e.g., Automated exposure control, adjustment of the mA and/or kV according to patient size, use of iterative reconstruction technique. RADIATION DOSE SUMMARY: CTDlvol: 9.3 mGy DLP: 454.02 mGycm COMPARISON: Prior study dated May 16, 2024. FINDINGS: Lung bases: Unremarkable. Liver: Calcified granulomas in the right lobe. Gallbladder: Unremarkable Spleen: Multiple calcified splenic granulomas. Pancreas: Normal size without evidence of mass surrounding inflammation or ductal dilation. Adrenals: Unremarkable Kidneys: Mild degree of process left hydroureter down to the ureterovesical junction. Bladder: Bladder wall thickening along the base of the bladder worse on the leftside. A mass lesion should be ruled out. This is the reason for the left hydronephrosis. There is evidence of prosthetic enlargement and calcification. Increased markings are seen in the surrounding Kirstie bladder fat. Bowel: Colonic diverticulosis without diverticulitis. Appendix: The appendix is not identified. There is no inflammatory process identified in the right lower quadrant to suggest appendicitis. Lymph nodes: No retroperitoneal lymph nodes are seen. Vasculature: Stable appearance of the fusiform infrarenal abdominal aortic aneurysm with mural thrombus. The aneurysm extends into the proximal portions of both common iliac arteries. There has been no change. Peritoneum / Retroperitoneum: Bilateral inguinal hernias containing fat worse onthe left side. Bones: Stable loss of height of the superior endplate of the L2 and L5 vertebrae. Disc space narrowing at the L5-S1. CT/Abdomen/Pelvis WITH Contrast IMPRESSION: Left hydronephrosis and hydroureter due to a mass at the base of the bladder as described. Bladder wall thickening with increased markings in the surrounding peritoneal fat. Sigmoid diverticulosis. Stable fusiform aneurysmal dilatation of the infrarenal abdominal aorta with extension to the right and left common iliac arteries. Bilateral inguinal hernias containing fat worse on the left side. Calcified hepatic and splenic granulomas. Reading Location: [facility] CC: Dr. Padmini Carrasco MD; Dr. Pradip Mcclendon MD ~ Banquet Supervisor: Signed [facility] 06-19-2024 Evaluation note Diagnosis Onset Date Resolution Pre-operative cardiovascular examination acute June 19, 2024 8:36am Abdominal aortic aneurysm (AAA) chronic June 19, 2024 8:36am Atherosclerotic heart disease of lummi coronary artery without angina pectoris chronic June 19, 2024 8:36am Essential hypertension chronic June 19, 2024 8:36am History of aortic valve replacement February 12, 2019 chronic June 19, 2024 8:36am Hyperlipidemia chronic June 19, 2024 8:36am Smoking greater than 40 pack years chronic June 19, 2024 8:36am Pre-operative cardiovascular examination acute August 30, 2024 7:53am Abdominal aortic aneurysm (AAA) chronic August 30, 2024 7:53am Atherosclerotic heart disease of lummi coronary artery without angina pectoris chronic August 30, 2024 7:53am Essential hypertension chronic August 30, 2024 7:53am History of aortic valve replacement February 12, 2019 chronic August 30, 2024 7:53am Hyperlipidemia chronic August 30, 2024 7:53am Smoking greater than 40 pack years chronic August 30, 2024 7:53am [facility] Work Phone: 1(149) 546-777304-09-2025 Radiology Diagnostic study note [facility] Imaging Services [address] [place], [place] [id number] Abdomen/Pelvis without Cont MR#: [id number] Acct: [id number] Name: ABELARDO IVORY Rep #: [id number] : 1950 M 74 From: Diana Huynh MD PCP: Dr. Padmini Carrasco MD Status: REG ER Study:Abdomen/Pelvis without Cont Date of Exa m: 05/16/24 Exam# [id number] Ordering Dr: Kelly Turpin DO PROCEDURE: ABDOMEN/PELVIS WITHOUT CONT 05/16/2024 REASON FOR EXAM: FLANK PAIN TECHNIQUE: Abdomen and pelvis CT without intravenous contrast. Noncontrast technique limits evaluation of the abdominal and pelvic viscera. Coronal and Sagittal reconstruction series were provided. One or more dose reduction techniques were used (e.g., Automated exposure control, adjustment of the mA and/or kV according to patient size, use of iterative reconstruction technique). PATIENT PREPARATION: Per protocol ORAL CONTRAST TYPE: None. AMOUNT: mL COMPARISON: None FINDINGS: Lung bases: Calcified granulomas. Liver: Steatosis. Multiple calcified granulomas. Gallbladder: No ductal dilation. Gallbladder is unremarkable. Spleen: No splenomegaly. Multiple calcified granulomas. Pancreas: Normal size. No surrounding inflammation. Adrenals: Unremarkable Kidneys: No urolithiasis. No hydronephrosis. Bladder: Circumferential urinary bladder wall thickening, with surrounding soft tissue stranding, concerning for acute cystitis. Reproductive Organs: No prostatomegaly. Bowel: Stomach is unremarkable. No bowel dilation or wall thickening. Moderatecolonic stool. Normalappendix. Few scattered colonic diverticuli, without evidence of diverticulitis. Appendix: Normal appendix. Lymph nodes: No suspicious lymph node enlargement. Vasculature: 4.1 cm infrarenal abdominal aortic aneurysm. Additional ectasia ofthe bilateral commoniliac arteries. Severe diffuse atherosclerotic calcification of the abdominal aorta and iliac arteries. IVC is unremarkable. Peritoneum / Retroperitoneum: No pneumoperitoneum. No ascites. Bones: Degenerative changes of the spine. CT/Abdomen/Pelvis without Cont IMPRESSION: 1. Diffuse circumferential urinary bladder wall thickening with surrounding softtissue stranding, concerning for acute cystitis. 2. 4.1 cm infrarenal aortic aneurysm. Reading Location: [facility] CC: Dr. Padmini Carrasco MD; Jeffery Turpin DO ~ Banquet Supervisor: Signed [facility]02-14-2025 Evaluation note* Diagnosis Onset Date Resolution Status Admit Date COPD (chronic obstructive pulmonary disease) chronic March 12:36pm Smoking greater than 40 pack years chronic March 23, 025 12:36pm [place] [employer] Work Phone: 1(898) 823-273702-14-2025 Evaluation note* Diagnosis Onset Date Resolution Status Admit Date COPD (chronic obstructive pulmonary disease) chronic March 12:36pm Smoking greater than 40 pack years chronic March 23, 025 12:36pm Pre-operative cardiovascular examination acute June 19, 2024 8:36am Abdominal aortic aneurysm (AAA) chronic June 19, 2024 8:36am Atherosclerotic heart disease of lummi coronary artery without angina pectoris chronic June 19, 2024 8:36am Essential hypertension chronic 2024 8:36am History of aortic valve replacement February 12, 2019 chronic June 19, 2024 8:36am Hyperlipidemia chronic June 19, 2024 8:36am Smoking greater than 40 pack years chronic June 19, 2024 8:36am [facility] Work Phone: 1(729) 599-141612-26-2024 Evaluation note* Diagnosis Onset Date Resolution Status Admit Date S/P inguinal hernia repair acute February 02, 2024 8:27am COPD (chronic obstructive pulmonary disease) chronic March 12:36pm Smoking greater than 40 pack years chronic March 23 025 12:36pm [facility] Work Phone: 1(367) 478-806512-11-2024 [facility] Medical Records Department [address] [place] [address] History Physical Exam 01/18/24 1005 MR#: [id number] Acct: [id number] Name: ABELARDO IVORY Rep #: [id number] : 1950 73 From: Marquise Barillas MD PCP: Dr. Padmini Carrasco MD Status:[facility] Location: [place] [address] History and Physical Date of Admission: 01/18/24 Intake Vital Signs 11/08/2408:40 Height 5 ft 6 in Intake Visit Reasons: S/P HERNIA 10-2 Chief Complaint: s/p hernia 10/2 Is patient in pain?: No Allergies No Known Allergies Allergy (Verified 11/23/23 08:32) Medications ???Medication ???Instructions ???Recorded ???Confirmed ???Type aspirin 81 mg tablet,delayed 81 mg PO DAILY heart health 03/02/22 11/23/23 History release rosuvastatin 5 mg tablet (Crestor) 5 mg PO DAILY cholesterol 03/02/22 11/23/23 History metoprolol tartrate 25 mg tablet 12.5 mg (1/2 x 25 mg) PO BID #90 01/14/23 11/23/23 Rx tabs fluticasone fur. 200 mcg-umeclid 1 inh inhalation DAILY #60 ea 01/27/23 11/23/23 Rx 62.5 mcg-vilant 25 mcg inhalat.powder (Trelegy Ellipta) amlodipine 5 mg tablet 5 mg PO DAILY #30 tabs 02/28/23 11/23/23 Rx calcium carbonate 500 mg PO DAILY 10/27/23 11/23/23 History cholecalciferol (vitamin D3) 25 25 mcg PO DAILY 10/27/23 11/23/23 History mcg (1,000 unit) capsule Have you fallen in the past year?: No Subjective Details: Patient is doing well after open right inguinal hernia repair Objective Details: Inguinal hernia incision healing well Coding Level of Care Code Global Post Op Diagnoses S/P inguinal hernia repair Z98.890; Z87.19 [facility] Medical History Wears dentures Wears glasses Bruising Easy bruising High cholesterol Smoker Shortness of breath on exertion History of echocardiogram Cardiology follow-up encounter Stage 3b chronic kidney disease (CKD) Thrombocytopenia Chronic kidney insufficiency Pleural effusion Secondary pulmonary arterial hypertension Atherosclerotic heart disease of lummi coronary artery without angina pectoris Intention tremor Carotid stenosis, bilateral Hyperlipidemia Nonrheumatic aortic (valve) stenosis Essential hypertension Tobacco dependence Bilateral inguinal hernia Left carotid bruit Abdominal aortic aneurysm (AAA) Anemia Subcutaneous mass of back PUD (peptic ulcer disease) Cough Arthritis Surgical History (Updated 11/23/23 @ 08:33 by Clarissa Cornejo) S/P inguinal hernia repair History of cardiac catheterization S/P AAA repair 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) History of left heart catheterization (11/27/18) History of aortic valve replacement (02/12/19) Family History Sister AsthmaMother Arthritis DiabetesBrother Cancer Unsure what kind- just a lump on his neck Social History Smoking Status: Current some day smoker tobacco type: cigarettes quit status: has quit before alcohol intake: never substance use type: does not use caffeine: Yes Type: coffee Number of servings: 3 what type of physical activity do you participate in: other frequency: 3-4 times per week seatbelt use: always Assessment and Plan (No Qualifiers) Assessment and Plan (1) S/P inguinal hernia repair: Status: Acute Plan: Patient doing well after right inguinal hernia repair. Plan for left side repair in 6 to 8 weeks. Marquise Barillas MD Pager: [facility] [address] [place] [phone] Office: I have examined the patient and the H P has been reviewed. There are no clinical changes since date of exam. The patient presents for his left sided inguinal hernia repair. The right side was repaired 2 months ago. I have reexplained the risks of the procedure and he understands and is wanted proceed. Marquise Barillas MD Pager: [facility] [address] [place] [address], [address] [address] Office: 01/18/24 1003 Cosigner Signature (if applicable): CC: Dr. Marquise Barillas MD; Dr. Padmini Carrasco MD [facility]10-02-2024 [facility] Medical Records Department [address] [place] [address] History Physical Exam 11/09/23 0950 MR#: [id number] Acct: [id number] Name: ABELARDO IVORY Rep #: [id number] : 1950 73 From: Marquise Barillas MD PCP: Dr. Padmini Carrasco MD Status:[facility] Location: [place] [address] History and Physical Date of Admission: 11/09/23 Intake Vital Signs 08/24/2408:12 10/24/2407:27 Height 5 ft 6 in 5 ft 6 in Weight: 159 lb 5 oz 160 lb BMI 25.7 25.8 BP 111/65 165/75 H Blood Pressure Location Lt brachial Rt brachial Position Sitting Sitting Respiration 16 18 Pulse 51 L 62 Pulse Source Monitor Palpation Temp 97.2 F L Temp Source Temporal Pulse Oximetry (%) 98 Oxygen Delivery Method room air Intake Visit Reasons: BILATERAL HERNIA Chief Complaint: bilateral hernia Is patient in pain?: No Allergies No Known Allergies Allergy (Verified 10/24/23 08:27) Medications ???Medication ???Instructions ???Recorded ???Confirmed ???Type aspirin 81 mg tablet,delayed 81 mg PO DAILY heart health 03/02/22 10/24/23 History release rosuvastatin 5 mg tablet (Crestor) 5 mg PO DAILY cholesterol 03/02/22 10/24/23 History metoprolol tartrate 25 mg tablet 12.5 mg (1/2 x 25 mg) PO BID #90 01/14/23 10/24/23 Rx tabs fluticasone fur. 200 mcg-umeclid 1 inh inhalation DAILY #60 ea 01/27/23 10/24/23 Rx 62.5 mcg-vilant 25 mcg inhalat.powder (Trelegy Ellipta) amlodipine 5 mg tablet 5 mg PO DAILY #30 tabs 02/28/23 10/24/23 Rx Have you fallen in the past year?: No PFSH Medical History Stage 3b chronic kidney disease (CKD) Thrombocytopenia Chronic kidney insufficiency Pleural effusion Secondary pulmonary arterial hypertension Atherosclerotic heart disease of lummi coronary artery without angina pectoris Intention tremor Carotid stenosis, bilateral Hyperlipidemia Nonrheumatic aortic (valve) stenosis Essential hypertension Tobacco dependence Bilateral inguinal hernia Left carotid bruit Abdominal aortic aneurysm (AAA) Anemia Subcutaneous mass of back PUD (peptic ulcer disease) Cough Arthritis Surgical History S/P AAA repair 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) History of left heart catheterization (11/27/18) History of aortic valve replacement (02/12/19) No history of previous surgery Family History Sister AsthmaMother Arthritis DiabetesBrother Cancer Unsure what kind- just a lump on his neck Social History Smoking Status: Current some day smoker tobacco type: cigarettes quit status: has quit before alcohol intake: never substance use type: does not use caffeine: Yes Type: coffee Number of servings: 3 what type of physical activity do you participate in: other frequency: 3-4 times per week seatbelt use: always HPI HPI HPI: Patient is a 73-year-old male with the bilateral inguinal hernias. He is here because these hernias are growing larger. He says they have been there for at least 5 years. He had an open infrarenal abdominal aortic aneurysm repair about 1 year ago. ROS General General: No weight change, appetite, fatigue, colon cancer, breast cancer or weakness HEENT HEENT: No difficulty swallowing, eye injury, eye surgery, swollen glands or hoarseness Endo Endocrine: Yes Hair loss; No thyroid disease, diabetes mellitus, thyroid cancer, heat intolerance or cold intolerance Skin Skin: Yes rash; No changing moles Musc Musculoskeletal: Yes joint pain; No back problems, arthritis, rheumatoid arthritis or gout Cardio Cardiovascular: Yes heart disease, high blood pressure and shortness of breat with exertion; No murmur, pacemaker, atrial fibrillation, heart attack, heart stent, palpitations or chest pain Psych Psychiatric: No depression, anxiety or hearing voices Resp Respiratory: Yes shortness of breath, No sleep apnea, No cough, No COPD, Yes asthma, No emphysema and No wheezing Gastro Gastrointestinal: No abdominal pain, No nausea or vomiting, No diarrhea, No constipation, No blood in stool, No acid reflux, No hemorrhoids, No ulcers, No gallbladder problem and No black,tarry stools Miguel A Hematologic: No blood thinners, No blood disorders, No bleeding, No anemia and No blood clots Neuro Neurologic: No system reviewed and no additional complaints, except as documented, No as per HPI, No abnormal gait, No abnormal hearing, No abnormal movements, No abnormal speech, No behavioral changes, No burning sensations, No confusion, No convulsions, No disequilibrium, No dizziness, No localized weakness, No frequent falls, No headache(s), No lack (more content not included)...[facility]04-21-2023 Progress note Author Tonia Jenkins [facility] May 28, 2022 11:31am Note Date/Time May 28, 2022 11: 18am [facility] [address] [place] [address] Progress Note - Wound Care 05/28/22 1116 MR#: [id number] Acct: [id number] Name: ABELARDO IVORY Rep #:[id number] : 1950 72 From: Tonia ACUNA PCP: Dr. Ezekiel Carrasco MD Status: REG RCR Location: History of Present Illness Date of Service: 05/28/22 Chief Complaint: Left wrist wound Multiple bilateral lower extremity wounds History of Wound: Patient is new to [facility] but known to me from the vascular surgery clinic. 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 Patient was understandably quite ill following this and hospitalized for some time during which he had significant BLE edema at which point the wounds began to appear. They were overall stable for some time, and then he was hospitalized a few weeks ago for pneumonia, had increased BLE edema again, and wounds worsened/new ones appeared. Since then, he feels they are improved in appearance. The wrist wound appeared during the initial hospitalization for AAA, at that time he describes it initially as a hematoma which eventually developed into this chronic wound. Last week, he had significant erythema and pain in his RLE and was started on antibiotics. Venous duplex was also obtained to r/o DVT and this was negative. Erythema did improve with antibiotics. Patient still has pain in bilateral feet,worse right than left; bilateral feet/ankles are intermittently hypersensitive to touch. He notes continued mild BLE edema. He does not currently wear compression. Subjective Subjective Patient has been applying Promogran and changing dressings for his wounds as directed. He has been applying hydrogel to L wrist wound as directed. No new/worsening pain, erythema, swelling, drainage, foul odor, F/C, N/V. Objective Data Objective Data Vital Signs: Vital Signs Temp Pulse Resp BP O2 Del Method O2 Flow Rate 96.9 F L 73 16 121/72 H Room Air 2 05/28/22 08:47 05/28/22 08:47 05/28/22 08:47 05/28/22 08:47 05/28/22 08:47 05/08/22 00:43 Oxygen Flow Rate (L/min) 2 Oxygen Delivery Method Room Air Charges/Coding Procedures Integumentary 111xxx-113xx: [id number] Sylvia subq tissue 20 sq cm/< Physical Exam Const alert, oriented x3 and no apparent distress General Appearance: cooperative, comfortable and well developed HEENT normocephalic, head/scalp atraumatic, hearing grossly normal bilaterally, external ears normal and external nose normal Eyes EOMs intact bilaterally General Eye: normal appearance of both eyes Neck full ROM General: normal visual inspection and trachea midline Resp normal respiratory effort, no retractions and no use of accessory muscles Effort and Inspection: able to speak in complete sentences and symmetric chest movement Cardio regular rate and regular rhythm Peripheral Pulses: brachial pulses present and radial pulses present Extremity Extremity Narrative: Patient has sensitivity to light touch, especially on R foot. Skin Wounds: wounds noted Wound Narrative: R lat mal smaller in size with granulation tissue at the wound beds. Good bleeding. No significant erythema, foul odor, drainage noted. 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: R lat mal Laterality: Right Type of Debridement: Excisional debridement Anesthesia Used: 5% Lidocaine Gel and Cetacaine Depth: Down to and including healthy tissue and in the subcutaneous layer Percentage of wound debrided: 100 Instrument Used: 5mm curette Tissue Removed: adherent slough/scab, devitalized tissue Severity: Fat Layer Exposed Amount of bleeding with debridement: Mild Bleeding Controlled with: Pressure Patient tolerated procedure: Patient tolerated procedure well Post-Debridement Measurements and Additional Note: Post-Debridement Measurements/Treatment CORBY - Nurse 1 - General Ulcer Assessment Start: 05/14/22 08:07 Freq: Status: Active Protocol: JC Activity Type Activity Date Activity User E-sign Co-sign Detail Recorded Client Recorded Date Recorded By Document 05/14/22 08:07 [id number] 05/14/22 08:18 Document 05/21/22 08:08 [facility] [id number] 05/21/22 08:20 [facility] Document 05/28/22 08:47 [facility] [id number] 05/28/22 08:52 BMF 05/14/22 05/21/22 05/28/22 08:07 08:08 08:47 - Today's Visit Information Type of service Follow-up Visit Follow-up Visit Follow-up Visit (Physician/MECHANIC (Physician/MECHANIC (Physician/MECHANIC ) ) ) Arrival Mode Ambulatory Ambulatory Ambulatory Transfer Assistance None None Patient Identification Verified (Name & Yes Yes ) Patient Requires Transmission-Based No No Precautions Vital Signs Temperature (97.8 F-99.1 F) 96.4 F L 97.1 F L 96.9 F L Temperature Source Temporal Temporal Temporal Pulse Rate (60-100) 72 73 73 Pulse Location Monitor Monitor Monitor Respiratory Rate (12-18) 18 16 16 Respiratory rate source Observation Observation Observation Oxygen Delivery Method Room Air Room Air Blood Pressure (90/60-120/80) 129/74 H 133/71 H 121/72 H Blood Pressure Mean (mm Hg) 92 91 88 Source Monitor Monitor Monitor Position Sitting Sitting Sitting Blood Pressure Location Left Arm Right Arm Left Arm History Since Last Visit- (Skip if this is Patient's initial visit) Have you changed medications since your No No No last visit? Any new allergies or adverse reactions No No No Had a fall/change in ADL's that may No No No increase risk of falls Signs or symptoms of abuse and/or No No No neglect since last visit Have you been in the hospital since your No No No last visit? Has dressing in place as prescribed Yes Yes No Has compression in place as prescribed N/A N/A N/A Has offloadiing in place as prescribed N/A N/A N/A Experienced any changes in pain level or No No No management Left Footwear Regular Shoe Regular Shoe Regular Shoe Right Footwear Regular Shoe Regular Shoe Regular Shoe Pain Scale: 0-10 Numeric Is Patient Pain Free? Yes Yes Yes - Nurse 1 - General Ulcer Measurement Start: 05/14/22 08:07 Freq: Status: Active Protocol: Activity Type Activity Date Activity User E-sign Co-sign Detail Recorded Client Recorded Date Recorded By Document 05/14/22 08:07 KENTRELL [id number] 05/14/22 08:18 JF Document 05/21/22 08:08 [facility] [id number] 05/21/22 08:20 BMF Document 05/28/22 08:47 [facility] [id number] 05/28/22 08:52 [facility] 05/14/22 05/21/22 05/28/22 08:07 08:08 08:47 Wound Center Nurse 1 #7 Right 1st Toe -Combined with other wound No No -Current Size (cm) - Length 0.1 0.3 -Current Size (cm) - Width 0.1 0.3 -Current Size (cm) - Depth 0.1 0.1 -Total Square Cm 0.01 0.09 -Date of Last Picture (Recall this 05/21/22 field) -Photo Taken Yes Yes -Epithelialization Large 67-100% Small 1-33% -Tunneling No No -Undermining/Tunneling No No -Circular Undermining No No -Exudate Amt None Present None Present -Wound Margin Fibrotic Scar, Distinct, Thickened Scar Outline Attached -Granulation Amt None Present (0 Small (1-33%) %) -Granulation Quality Red -Slough/Fibrin Yes Yes -Necrosis Amt Large (67-100%) Large (67-100%) -Necrotic Tissue Type Adherent Slough Adherent Slough -Structure Exposed N/A -Texture (Kirstie-wound Skin Appearance) No Abnormality, Assessed, Assessed Scarring -Moisture (Kirstie-wound Skin Appearance) No Abnormality, Assessed Assessed,Dry/ Scaly -Color (Kirstie-wound Skin Appearance) No Abnormality, Assessed Assessed -Temperature (Kirstie-wound Skin No Abnormality No Abnormality Appearance) (Pt Warm) (Pt Warm) -Tenderness on Palpation (Kirstie-wound No No Skin Appearance) -Ulcer Cleansing Rinsed/ Rinsed/ Irrigated with Irrigated with Saline Saline -Foul Odor after Cleansing No No -Anesthetic Used 5% Lidocaine 5% Lidocaine Gel Gel #6 R Dorsal -Combined with other wound No -Current Size (cm) - Length 0 -Current Size (cm) - Width 0 -Current Size (cm) - Depth 0 -Total Square Cm 0 -Photo Taken Yes -Epithelialization Large 67-100% #5 L wrist -Combined with other wound No -Current Size (cm) - Length 0.1 -Current Size (cm) - Width 0.1 -Current Size (cm) - Depth 0.1 -Total Square Cm 0.01 -Photo Taken Yes -Epithelialization Large 67-100% -Tunneling No -Undermining/Tunneling No -Circular Undermining No -Exudate Amt None Present -Wound Margin Fibrotic Scar, Thickened Scar #3 R Ant Ankle -Combined with other wound No No No -Current Size (cm) - Length 0.8 0.8 0.1 -Current Size (cm) - Width 1.5 1.4 0.1 -Current Size (cm) - Depth 0.1 0.1 0.1 -Total Square Cm 1.20 1.12 0.01 -Date of Last Picture (Recall this 05/21/22 05/28/22 field) -Photo Taken Yes Yes Yes -Epithelialization Small 1-33% Small 1-33% Large 67-100% -Tunneling No No -Undermining/Tunneling No No -Circular Undermining No No -Exudate Amt None Present None Present None Present -Wound Margin Fibrotic Scar, Distinct, Thickened Scar Outline Attached -Granulation Amt Medium (34-66%) None Present (0 %) -Granulation Quality Naomi -Slough/Fibrin Yes Yes Yes -Necrosis Amt Small (1-33%) Large (67-100%) Small (1-33%) -Necrotic Tissue Type Adherent Slough Adherent Slough Adherent Slough -Structure Exposed N/A -Texture (Kirstie-wound Skin Appearance) Assessed Assessed, Assessed, Scarring Scarring -Moisture (Kirstie-wound Skin Appearance) Assessed Assessed Assessed -Color (Kirstie-wound Skin Appearance) Assessed Assessed Assessed -Temperature (Kirstie-wound Skin No Abnormality No Abnormality No Abnormality Appearance) (Pt Warm) (Pt Warm) (Pt Warm) -Tenderness on Palpation (Kirstie-wound No No No Skin Appearance) -Ulcer Cleansing Rinsed/ Rinsed/ Rinsed/ Irrigated with Irrigated with Irrigated with Saline Saline Saline -Foul Odor after Cleansing No No No -Anesthetic Used 5% Lidocaine 5% Lidocaine 5% Lidocaine Gel Gel Gel #8 Right Lat ankle -Combined with other wound No No No -Current Size (cm) - Length 0.8 0.7 0.4 -Current Size (cm) - Width 0.5 0.4 0.1 -Current Size (cm) - Depth 0.1 0.1 0.1 -Total Square Cm 0.40 0.28 0.04 -Date of Last Picture (Recall this 05/21/22 05/28/22 field) -Photo Taken Yes Yes Yes -Epithelialization Medium 34-66% Small 1-33% Large 67-100% -Tunneling No No No -Undermining/Tunneling No No No -Circular Undermining No No No -Exudate Amt None Present None Present None Present -Wound Margin Indistinct, Non Distinct, Distinct, -Visible Outline Outline Attached Attached -Granulation Amt None Present (0 Large (67-100%) Small (1-33%) %) -Granulation Quality Red Red -Slough/Fibrin Yes Yes -Necrosis Amt Large (67-100%) Small (1-33%) Large (67-100%) -Necrotic Tissue Type Adherent Slough Adherent Slough Adherent Slough -Texture (Kirstie-wound Skin Appearance) Assessed,Not Assessed, Assessed, Assessed Scarring Scarring -Moisture (Kirstie-wound Skin Appearance) No Abnormality, Assessed Assessed,Dry/ Assessed Scaly -Color (Kirstie-wound Skin Appearance) No Abnormality, Assessed Assessed Assessed -Temperature (Kirstie-wound Skin No Abnormality No Abnormality No Abnormality Appearance) (Pt Warm) (Pt Warm) (Pt Warm) -Tenderness on Palpation (Kirstie-wound Yes No No Skin Appearance) -Ulcer Cleansing Rinsed/ Rinsed/ Rinsed/ Irrigated with Irrigated with Irrigated with Saline Saline Saline -Foul Odor after Cleansing No No No -Anesthetic Used 5% Lidocaine 5% Lidocaine 5% Lidocaine Gel Gel Gel Lower Limb Edema Present NA Right Calf (cm) 30.7 Right Ankle (cm) 20 WC - Nurse 2 - General Ulcer CM Notes Start: 05/14/22 08:07 Freq: Status: Active Protocol: Activity Type Activity Date Activity User E-sign Co-sign Detail Recorded Client Recorded Date Recorded By Document 05/14/22 08:51 PL [id number] 05/14/22 09:00 PL Document 05/21/22 08:55 PL [id number] 05/21/22 08:57 PL Document 05/28/22 09:25 PL [id number] 05/28/22 09:27 PL 05/14/22 05/21/22 05/28/22 08:51 08:55 09:25 Wound Center Nurse 2 #7 Right 1st Toe -Time 08:30 -Correct Patient Yes -Correct Side, Site, Position Yes -Correct Procedure Yes -Procedure Performed Yes No -Type of Procedure Debridement -Clinical Debridement Subcutaneous -Tissue Removed Subcutaneous -Post Debridement (cm) - Length 0.2 -Post Debridement (cm) - Width 0.4 -Post Debridement (cm) - Depth 0.1 -Total Square (Post) (cm) 0.08 -Area of Debridement (cm) - Length 0.2 -Area of Debridement (cm) - Width 0.4 -Total Square (Area) (cm) 0.08 -Tunneling No -Undermining/Tunneling No -Circular Undermining No -Wound/Ulcer Outcome Not Healed Healed- Epithelialized -Ulcer Cleansing Rinsed/ Irrigated with Saline -Foul Odor after Cleansing No -Bioengineered Tissue No -Bleeding Controlled with Pressure -Treatment Response Procedure Tolerated Well -Debridement - Subq, 1st 20sq cm No #6 R Dorsal -Procedure Performed No -Wound/Ulcer Outcome Healed- Epithelialized #5 L wrist -Procedure Performed No -Wound/Ulcer Outcome Healed- Epithelialized #3 R Ant Ankle -Time 08: 08:45 -Correct Patient Yes Yes -Correct Side, Site, Position Yes Yes -Correct Procedure Yes Yes -Procedure Performed Yes Yes No -Type of Procedure Debridement Debridement -Clinical Debridement Subcutaneous Subcutaneous -Tissue Removed Subcutaneous Subcutaneous -Post Debridement (cm) - Length 0.5 0.4 -Post Debridement (cm) - Width 1.1 0.5 -Post Debridement (cm) - Depth 0.1 0.1 -Total Square (Post) (cm) 0.55 0.20 -Area of Debridement (cm) - Length 0.5 0.4 -Area of Debridement (cm) - Width 1.1 0.5 -Total Square (Area) (cm) 0.55 0.20 -Tunneling No No -Undermining/Tunneling No No -Circular Undermining No No -Wound/Ulcer Outcome Not Healed Not Healed Healed- Epithelialized -Ulcer Cleansing Rinsed/ Rinsed/ Irrigated with Irrigated with Saline Saline -Foul Odor after Cleansing No No -Bioengineered Tissue No No -Bleeding Controlled with Pressure Pressure -Treatment Response Procedure Procedure Tolerated Well Tolerated Well -Debridement - Subq, 1st 20sq cm Yes Yes #8 Right Lat ankle -Time 08:30 08:45 09:00 -Correct Patient Yes Yes Yes -Correct Side, Site, Position Yes Yes Yes -Correct Procedure Yes Yes Yes -Procedure Performed Yes Yes Yes -Type of Procedure Debridement Debridement Debridement -Clinical Debridement Subcutaneous Subcutaneous Subcutaneous -Tissue Removed Subcutaneous Subcutaneous Subcutaneous -Post Debridement (cm) - Length 0.8 0.5 0.3 -Post Debridement (cm) - Width 0.5 0.4 0.3 -Post Debridement (cm) - Depth 0.1 0.1 0.1 -Total Square (Post) (cm) 0.40 0.20 0.09 -Area of Debridement (cm) - Length 0.8 0.5 0.3 -Area of Debridement (cm) - Width 0.5 0.4 0.3 -Total Square (Area) (cm) 0.40 0.20 0.09 -Tunneling No No No -Undermining/Tunneling No No No -Circular Undermining No No No -Wound/Ulcer Outcome Not Healed Not Healed Not Healed -Ulcer Cleansing Rinsed/ Rinsed/ Rinsed/ Irrigated with Irrigated with Irrigated with Saline Saline Saline -Foul Odor after Cleansing No No No -Bioengineered Tissue No No No -Bleeding Controlled with Pressure Pressure Pressure -Treatment Response Procedure Procedure Procedure Tolerated Well Tolerated Well Tolerated Well -Debridement - Subq, 1st 20sq cm No No Yes Pain Scale: 0-10 Numeric Is Patient Pain Free? Yes Yes Yes - Nurse 3 - General Ulcer D/C NN Start: 05/14/22 08:07 Freq: Status: Active Protocol: Activity Type Activity Date Activity User E-sign Co-sign Detail Recorded Client Recorded Date Recorded By Document 05/14/22 08:58 [id number] 05/14/22 08:59 Document 05/21/22 08:56 Desktop 05/21/22 08:57 Document 05/28/22 09:06 [id number] 05/28/22 09:07 05/14/22 05/21/22 05/28/22 08:58 08:56 09:06 Wound Care Center Nurse 3 #7 Right 1st Toe -Ulcer Cleansing Rinsed/ Rinsed/ Irrigated with Irrigated with Saline Saline -Foul Odor after Cleansing No No -Primary Dressing Applied Promogran -Other Dressing gel -Primary Dressing Covered/Secured with Dry Gauze, Dry Gauze Secured with Tape -Promogran 0 #5 L wrist -Ulcer Cleansing Rinsed/ Irrigated with Saline -Foul Odor after Cleansing No -Primary Dressing Applied C Hydrogel ($) -Primary Dressing Covered/Secured with Dry Gauze, Secured with Tape #3 R Ant Ankle -Ulcer Cleansing Rinsed/ Rinsed/ Rinsed/ Irrigated with Irrigated with Irrigated with Saline Saline Saline -Foul Odor after Cleansing No No No -Primary Dressing Applied Promogran -Other Dressing gel hydrogel -Primary Dressing Covered/Secured with Dry Gauze, Dry Gauze Dry Gauze, Secured with Secured with Tape Tape -Promogran 0 #8 Right Lat ankle -Ulcer Cleansing Rinsed/ Rinsed/ Rinsed/ Irrigated with Irrigated with Irrigated with Saline Saline Saline -Foul Odor after Cleansing No No No -Primary Dressing Applied Promogran -Other Dressing gel hydrogel -Primary Dressing Covered/Secured with Dry Gauze, Dry Gauze Dry Gauze, Secured with Secured with Tape Tape -Promogran 0 Pain Scale: 0-10 Numeric Is Patient Pain Free? 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 R anterior ankle/sanchez healed. Collagen hydrogel to R lateral malleolus wound and cover with dry gauze. Continue to apply collagen hydrogel to healed L wrist wound and pad/protect as new skin is still delicate. Return to clinic in 1 week or sooner as needed. 05/28/22 1131 <Electronically signed by Tonia ACUNA> Cosigner Signature (if applicable): CC: ~ Signed [facility] Work Phone: 1([phone]) 622-165204-14-2023 Progress note Author Tonia [email or web address] [facility] May 21, 2022 2:01pm Note Date/Time May 21, 2022 1:4 5pm [facility] [address] [place], [place] [address] [address] Progress Note - Wound Care 05/21/22 1341 MR#: [id number] Acct: [id number] Name: ABELARDO IVORY Rep #:[id number] 02 : 1950 72 From: Tonia ACUNA PCP: Dr. Ezekiel Carrasco MD Status: REG RCR Location: History of Present Illness Date of Service: 05/21/22 Chief Complaint: Left wrist wound Multiple bilateral lower extremity wounds History of Wound: Patient is new to [facility] but known to me from the vascular surgery clinic. 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 Patient was understandably quite ill following this and hospitalized for some time during which he had significant BLE edema at which point the wounds began to appear. They were overall stable for some time, and then he was hospitalized a few weeks ago for pneumonia, had increased BLE edema again, and wounds worsened/new ones appeared. Since then, he feels they are improved in appearance. The wrist wound appeared during the initial hospitalization for AAA, at that time he describes it initially as a hematoma which eventually developed into this chronic wound. Last week, he had significant erythema and pain in his RLE and was started on antibiotics. Venous duplex was also obtained to r/o DVT and this was negative. Erythema did improve with antibiotics. Patient still has pain in bilateral feet,worse right than left; bilateral feet/ankles are intermittently hypersensitive to touch. He notes continued mild BLE edema. He does not currently wear compression. Subjective Subjective Patient has been applying Promogran and changing dressings for his BLE wounds asdirected. He has been applying hydrogel to L wrist wound as directed. No new/worsening pain, erythema, swelling, drainage, foul odor, F/C, N/V. Objective Data Objective Data Vital Signs: Vital Signs Temp Pulse Resp BP O2 Del Method O2 Flow Rate 97.1 F L 73 16 133/71 H Room Air 2 05/21/22 08:08 05/21/22 08:08 05/21/22 08:08 05/21/22 08:08 05/21/22 08:08 05/08/22 00:43 Oxygen Flow Rate (L/min) 2 Oxygen Delivery Method Room Air Charges/Coding Procedures Integumentary 111xxx-113xx: 34787 Sylvia subq tissue 20 sq cm/< Physical Exam Const alert, oriented x3 and no apparent distress General Appearance: cooperative, comfortable and well developed HEENT normocephalic, head/scalp atraumatic, hearing grossly normal bilaterally, external ears normal and external nose normal Eyes EOMs intact bilaterally General Eye: normal appearance of both eyes Neck full ROM General: normal visual inspection and trachea midline Resp normal respiratory effort, no retractions and no use of accessory muscles Effort and Inspection: able to speak in complete sentences and symmetric chest movement Cardio regular rate and regular rhythm Peripheral Pulses: brachial pulses present and radial pulses present Extremity Extremity Narrative: Patient has sensitivity to light touch, especially on R foot. Skin Wounds: wounds noted Wound Narrative: R lat mal and R ant ankle/sanchez with pink, granulation tissue at the wound beds. Good bleeding. No significant erythema, foul odor, drainage noted. 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: R lat mal Laterality: Right Type of Debridement: Excisional debridement Anesthesia Used: 5% Lidocaine Gel and Cetacaine Depth: Down to and including healthy tissue and in the subcutaneous layer Percentage of wound debrided: 100 Instrument Used: 5mm curette Tissue Removed: adherent slough/scab, devitalized tissue Severity: Fat Layer Exposed Amount of bleeding with debridement: Mild Bleeding Controlled with: Pressure Patient tolerated procedure: Patient tolerated procedure well Post-Debridement Measurements and Additional Note: Post-Debridement Measurements/Treatment - Nurse 1 - General Ulcer Assessment Start: 05/14/22 08:07 Freq: Status: Active Protocol: JC Activity Type Activity Date Activity User E-sign Co-sign Detail Recorded Client Recorded Date Recorded By Document 05/14/22 08:07 [id number] 05/14/22 08:18 Document 05/21/22 08:08 [facility] [id number] 05/21/22 08:20 [facility] 05/14/22 05/21/22 08:07 08:08 - Today's Visit Information Type of service Follow-up Visit Follow-up Visit (Physician/MECHANIC (Physician/MECHANIC ) ) Arrival Mode Ambulatory Ambulatory Transfer Assistance None Patient Identification Verified (Name & Yes ) Patient Requires Transmission-Based No No Precautions Vital Signs Temperature (97.8 F-99.1 F) 96.4 F L 97.1 F L Temperature Source Temporal Temporal Pulse Rate (60-100) 72 73 Pulse Location Monitor Monitor Respiratory Rate (12-18) 18 16 Respiratory rate source Observation Observation Oxygen Delivery Method Room Air Blood Pressure (90/60-120/80) 129/74 H 133/71 H Blood Pressure Mean (mm Hg) 92 91 Source Monitor Monitor Position Sitting Sitting Blood Pressure Location Left Arm Right Arm History Since Last Visit- (Skip if this is Patient's initial visit) Have you changed medications since your No No last visit? Any new allergies or adverse reactions No No Had a fall/change in ADL's that may No No increase risk of falls Signs or symptoms of abuse and/or No No neglect since last visit Have you been in the hospital since your No No last visit? Has dressing in place as prescribed Yes Yes Has compression in place as prescribed N/A N/A Has offloadiing in place as prescribed N/A N/A Experienced any changes in pain level or No No management Left Footwear Regular Shoe Regular Shoe Right Footwear Regular Shoe Regular Shoe Pain Scale: 0-10 Numeric Is Patient Pain Free? Yes Yes WC - Nurse 1 - General Ulcer Measurement Start: 05/14/22 08:07 Freq: Status: Active Protocol: Activity Type Activity Date Activity User E-sign Co-sign Detail Recorded Client Recorded Date Recorded By Document 05/14/22 08:07 [id number] 05/14/22 08:18 Document 05/21/22 08:08 [facility] [id number] 05/21/22 08:20 [facility] 05/14/22 05/21/22 08:07 08:08 Wound Center Nurse 1 #7 Right 1st Toe -Combined with other wound No No -Current Size (cm) - Length 0.1 0.3 -Current Size (cm) - Width 0.1 0.3 -Current Size (cm) - Depth 0.1 0.1 -Total Square Cm 0.01 0.09 -Date of Last Picture (Recall this 05/21/22 field) -Photo Taken Yes Yes -Epithelialization Large 67-100% Small 1-33% -Tunneling No No -Undermining/Tunneling No No -Circular Undermining No No -Exudate Amt None Present None Present -Wound Margin Fibrotic Scar, Distinct, Thickened Scar Outline Attached -Granulation Amt None Present (0 Small (1-33%) %) -Granulation Quality Red -Slough/Fibrin Yes Yes -Necrosis Amt Large (67-100%) Large (67-100%) -Necrotic Tissue Type Adherent Slough Adherent Slough -Structure Exposed N/A -Texture (Kirstie-wound Skin Appearance) No Abnormality, Assessed, Assessed Scarring -Moisture (Kirstie-wound Skin Appearance) No Abnormality, Assessed Assessed,Dry/ Scaly -Color (Kirstie-wound Skin Appearance) No Abnormality, Assessed Assessed -Temperature (Kirstie-wound Skin No Abnormality No Abnormality Appearance) (Pt Warm) (Pt Warm) -Tenderness on Palpation (Kirstie-wound No No Skin Appearance) -Ulcer Cleansing Rinsed/ Rinsed/ Irrigated with Irrigated with Saline Saline -Foul Odor after Cleansing No No -Anesthetic Used 5% Lidocaine 5% Lidocaine Gel Gel #6 R Dorsal -Combined with other wound No -Current Size (cm) - Length 0 -Current Size (cm) - Width 0 -Current Size (cm) - Depth 0 -Total Square Cm 0 -Photo Taken Yes -Epithelialization Large 67-100% #5 L wrist -Combined with other wound No -Current Size (cm) - Length 0.1 -Current Size (cm) - Width 0.1 -Current Size (cm) - Depth 0.1 -Total Square Cm 0.01 -Photo Taken Yes -Epithelialization Large 67-100% -Tunneling No -Undermining/Tunneling No -Circular Undermining No -Exudate Amt None Present -Wound Margin Fibrotic Scar, Thickened Scar #8 Right Lat ankle -Combined with other wound No No -Current Size (cm) - Length 0.8 0.7 -Current Size (cm) - Width 0.5 0.4 -Current Size (cm) - Depth 0.1 0.1 -Total Square Cm 0.40 0.28 -Date of Last Picture (Recall this 05/21/22 field) -Photo Taken Yes Yes -Epithelialization Medium 34-66% Small 1-33% -Tunneling No No -Undermining/Tunneling No No -Circular Undermining No No -Exudate Amt None Present None Present -Wound Margin Indistinct, Non Distinct, -Visible Outline Attached -Granulation Amt None Present (0 Large (67-100%) %) -Granulation Quality Red -Slough/Fibrin Yes Yes -Necrosis Amt Large (67-100%) Small (1-33%) -Necrotic Tissue Type Adherent Slough Adherent Slough -Texture (Kirstie-wound Skin Appearance) Assessed,Not Assessed, Assessed Scarring -Moisture (Kirstie-wound Skin Appearance) No Abnormality, Assessed Assessed -Color (Kirstie-wound Skin Appearance) No Abnormality, Assessed Assessed -Temperature (Kirstie-wound Skin No Abnormality No Abnormality Appearance) (Pt Warm) (Pt Warm) -Tenderness on Palpation (Kirstie-wound Yes No Skin Appearance) -Ulcer Cleansing Rinsed/ Rinsed/ Irrigated with Irrigated with Saline Saline -Foul Odor after Cleansing No No -Anesthetic Used 5% Lidocaine 5% Lidocaine Gel Gel #3 R Ant Ankle -Combined with other wound No No -Current Size (cm) - Length 0.8 0.8 -Current Size (cm) - Width 1.5 1.4 -Current Size (cm) - Depth 0.1 0.1 -Total Square Cm 1.20 1.12 -Date of Last Picture (Recall this 05/21/22 field) -Photo Taken Yes Yes -Epithelialization Small 1-33% Small 1-33% -Tunneling No No -Undermining/Tunneling No No -Circular Undermining No No -Exudate Amt None Present None Present -Wound Margin Fibrotic Scar, Distinct, Thickened Scar Outline Attached -Granulation Amt Medium (34-66%) None Present (0 %) -Granulation Quality Naomi -Slough/Fibrin Yes Yes -Necrosis Amt Small (1-33%) Large (67-100%) -Necrotic Tissue Type Adherent Slough Adherent Slough -Structure Exposed N/A -Texture (Kirstie-wound Skin Appearance) Assessed Assessed, Scarring -Moisture (Kirstie-wound Skin Appearance) Assessed Assessed -Color (Kirstie-wound Skin Appearance) Assessed Assessed -Temperature (Kirstie-wound Skin No Abnormality No Abnormality Appearance) (Pt Warm) (Pt Warm) -Tenderness on Palpation (Kirstie-wound No No Skin Appearance) -Ulcer Cleansing Rinsed/ Rinsed/ Irrigated with Irrigated with Saline Saline -Foul Odor after Cleansing No No -Anesthetic Used 5% Lidocaine 5% Lidocaine Gel Gel Lower Limb Edema Present NA Right Calf (cm) 30.7 Right Ankle (cm) 20 WC - Nurse 2 - General Ulcer CM Notes Start: 05/14/22 08:07 Freq: Status: Active Protocol: Activity Type Activity Date Activity User E-sign Co-sign Detail Recorded Client Recorded Date Recorded By Document 05/14/22 08:51 PL [id number] 05/14/22 09:00 PL Document 05/21/22 08:55 PL [id number] 05/21/22 08:57 PL 05/14/22 05/21/22 08:51 08:55 Wound Center Nurse 2 #7 Right 1st Toe -Time 08:30 -Correct Patient Yes -Correct Side, Site, Position Yes -Correct Procedure Yes -Procedure Performed Yes No -Type of Procedure Debridement -Clinical Debridement Subcutaneous -Tissue Removed Subcutaneous -Post Debridement (cm) - Length 0.2 -Post Debridement (cm) - Width 0.4 -Post Debridement (cm) - Depth 0.1 -Total Square (Post) (cm) 0.08 -Area of Debridement (cm) - Length 0.2 -Area of Debridement (cm) - Width 0.4 -Total Square (Area) (cm) 0.08 -Tunneling No -Undermining/Tunneling No -Circular Undermining No -Wound/Ulcer Outcome Not Healed Healed- Epithelialized -Ulcer Cleansing Rinsed/ Irrigated with Saline -Foul Odor after Cleansing No -Bioengineered Tissue No -Bleeding Controlled with Pressure -Treatment Response Procedure Tolerated Well -Debridement - Subq, 1st 20sq cm No #6 R Dorsal -Procedure Performed No -Wound/Ulcer Outcome Healed- Epithelialized #5 L wrist -Procedure Performed No -Wound/Ulcer Outcome Healed- Epithelialized #8 Right Lat ankle -Time 08:30 08:45 -Correct Patient Yes Yes -Correct Side, Site, Position Yes Yes -Correct Procedure Yes Yes -Procedure Performed Yes Yes -Type of Procedure Debridement Debridement -Clinical Debridement Subcutaneous Subcutaneous -Tissue Removed Subcutaneous Subcutaneous -Post Debridement (cm) - Length 0.8 0.5 -Post Debridement (cm) - Width 0.5 0.4 -Post Debridement (cm) - Depth 0.1 0.1 -Total Square (Post) (cm) 0.40 0.20 -Area of Debridement (cm) - Length 0.8 0.5 -Area of Debridement (cm) - Width 0.5 0.4 -Total Square (Area) (cm) 0.40 0.20 -Tunneling No No -Undermining/Tunneling No No -Circular Undermining No No -Wound/Ulcer Outcome Not Healed Not Healed -Ulcer Cleansing Rinsed/ Rinsed/ Irrigated with Irrigated with Saline Saline -Foul Odor after Cleansing No No -Bioengineered Tissue No No -Bleeding Controlled with Pressure Pressure -Treatment Response Procedure Procedure Tolerated Well Tolerated Well -Debridement - Subq, 1st 20sq cm No No #3 R Ant Ankle -Time 08:30 08:45 -Correct Patient Yes Yes -Correct Side, Site, Position Yes Yes -Correct Procedure Yes Yes -Procedure Performed Yes Yes -Type of Procedure Debridement Debridement -Clinical Debridement Subcutaneous Subcutaneous -Tissue Removed Subcutaneous Subcutaneous -Post Debridement (cm) - Length 0.5 0.4 -Post Debridement (cm) - Width 1.1 0.5 -Post Debridement (cm) - Depth 0.1 0.1 -Total Square (Post) (cm) 0.55 0.20 -Area of Debridement (cm) - Length 0.5 0.4 -Area of Debridement (cm) - Width 1.1 0.5 -Total Square (Area) (cm) 0.55 0.20 -Tunneling No No -Undermining/Tunneling No No -Circular Undermining No No -Wound/Ulcer Outcome Not Healed Not Healed -Ulcer Cleansing Rinsed/ Rinsed/ Irrigated with Irrigated with Saline Saline -Foul Odor after Cleansing No No -Bioengineered Tissue No No -Bleeding Controlled with Pressure Pressure -Treatment Response Procedure Procedure Tolerated Well Tolerated Well -Debridement - Subq, 1st 20sq cm Yes Yes Pain Scale: 0-10 Numeric Is Patient Pain Free? Yes Yes - Nurse 3 - General Ulcer D/C NN Start: 05/14/22 08:07 Freq: Status: Active Protocol: Activity Type Activity Date Activity User E-sign Co-sign Detail Recorded Client Recorded Date Recorded By Document 05/14/22 08:58 KENTRELL [id number] 05/14/22 08:59 JF Document 05/21/22 08:56 Desktop 05/21/22 08:57 05/14/22 05/21/22 08:58 08:56 Wound Care Center Nurse 3 #7 Right 1st Toe -Ulcer Cleansing Rinsed/ Rinsed/ Irrigated with Irrigated with Saline Saline -Foul Odor after Cleansing No No -Primary Dressing Applied Promogran -Other Dressing gel -Primary Dressing Covered/Secured with Dry Gauze, Dry Gauze Secured with Tape -Promogran 0 #5 L wrist -Ulcer Cleansing Rinsed/ Irrigated with Saline -Foul Odor after Cleansing No -Primary Dressing Applied C Hydrogel ($) -Primary Dressing Covered/Secured with Dry Gauze, Secured with Tape #8 Right Lat ankle -Ulcer Cleansing Rinsed/ Rinsed/ Irrigated with Irrigated with Saline Saline -Foul Odor after Cleansing No No -Primary Dressing Applied Promogran -Other Dressing gel -Primary Dressing Covered/Secured with Dry Gauze, Dry Gauze Secured with Tape -Promogran 0 #3 R Ant Ankle -Ulcer Cleansing Rinsed/ Rinsed/ Irrigated with Irrigated with Saline Saline -Foul Odor after Cleansing No No -Primary Dressing Applied Promogran -Other Dressing gel -Primary Dressing Covered/Secured with Dry Gauze, Dry Gauze Secured with Tape -Promogran 0 Pain Scale: 0-10 Numeric Is Patient Pain Free? Yes Yes WC - Visit Discharge Discharge Condition Stable Stable Ambulatory Status Ambulatory Ambulatory Transportation Private Auto Private Auto Medication Reconcilliation completed & Yes Yes provided to patient/care provider Clinical Summary of Care Provided Yes Yes Additional Wound Wound debrided: R ant ankle Laterality: Right Type of Debridement: Excisional debridement Anesthesia Used: 5% Lidocaine Gel and Cetacaine Depth: Down to and including healthy tissue and in the subcutaneous layer Percentage of wound debrided: 100 Instrument Used: 5mm curette, #10 blade and Forceps Tissue Removed: adherent slough/scab, devitalized tissue Severity: Fat Layer Exposed Amount of bleeding with debridement: Mild Bleeding Controlled with: Pressure Patient tolerated procedure: Patient tolerated procedure well Assessment/Plan Assessment/Plan (1) 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 Wound bases had pink granulation tissue and good bleeding. Continue promogran to RLE wounds, cover with adaptic and kerlix, tubigrips for compression. Change dressings daily or more often as needed to keep clean and dry. Continue to apply collagen hydrogel to healed L wrist wound and pad/protect as new skin is still delicate. Return to clinic in 1 week or sooner as needed. 05/21/22 1401 <Electronically signed by Tonia ACUNA> Cosigner Signature (if applicable): CC: ~ Signed [facility] Work Phone: [phone]) 155-640704-07-2023 Progress note Author Tonia Jenkins [facility] May 14, 2022 8:53am Note Date/Time May 14, 2022 8:53 am [facility] [address] [place] [address] Progress Note - Wound Care 05/14/22 0846 MR#: [id number] Acct: [id number] Name: ABELARDO IVORY Rep #:[id number] 02 : 1950 72 From: Tonia ACUNA PCP: Dr. Ezekiel Carrasco MD Status: REG RCR Location: History of Present Illness Date of Service: 05/14/22 Chief Complaint: Left wrist wound Multiple bilateral lower extremity wounds History of Wound: Patient is new to [facility] but known to me from the vascular surgery clinic. 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 Patient was understandably quite ill following this and hospitalized for some time during which he had significant BLE edema at which point the wounds began to appear. They were overall stable for some time, and then he was hospitalized a few weeks ago for pneumonia, had increased BLE edema again, and wounds worsened/new ones appeared. Since then, he feels they are improved in appearance. The wrist wound appeared during the initial hospitalization for AAA, at that time he describes it initially as a hematoma which eventually developed into this chronic wound. Last week, he had significant erythema and pain in his RLE and was started on antibiotics. Venous duplex was also obtained to r/o DVT and this was negative. Erythema did improve with antibiotics. Patient still has pain in bilateral feet,worse right than left; bilateral feet/ankles are intermittently hypersensitive to touch. He notes continued mild BLE edema. He does not currently wear compression. Subjective Subjective Patient has been applying Promogran and changing dressings for his BLE wounds asdirected. He has been applying hydrogel to L wrist wound as directed. No new/worsening pain, erythema, swelling, drainage, foul odor, F/C, N/V. Objective Data Objective Data Vital Signs: Vital Signs Temp Pulse Resp BP O2 Flow Rate 96.4 F L 72 18 129/74 H 2 05/14/22 08:07 05/14/22 08:07 05/14/22 08:07 05/14/22 08:07 05/08/22 00:43 Oxygen Flow Rate (L/min) 2 Charges/Coding Multi Select Codes Integumentary Integumentary CPT Codes: 83169 Sylvia subq tissue 20 sq cm/< Physical Exam Const alert, oriented x3 and no apparent distress General Appearance: cooperative, comfortable and well developed HEENT normocephalic, head/scalp atraumatic, hearing grossly normal bilaterally, external ears normal and external nose normal Eyes EOMs intact bilaterally General Eye: normal appearance of both eyes Neck full ROM General: normal visual inspection and trachea midline Resp normal respiratory effort, no retractions and no use of accessory muscles Effort and Inspection: able to speak in complete sentences and symmetric chest movement Cardio regular rate and regular rhythm Peripheral Pulses: brachial pulses present and radial pulses present Extremity Extremity Narrative: Patient has sensitivity to light touch, especially on R foot. Skin Wounds: wounds noted Wound Narrative: R dorsal foot wound healed. Only R lat mal and R ant ankle/sanchez remain. Naomi, granulation tissue at the wound beds. Good bleeding. No significant erythema, foul odor, drainage noted. Left wrist wound healed. 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: R lat mal Laterality: Right Type of Debridement: Excisional debridement Anesthesia Used: 5% Lidocaine Gel and Cetacaine Depth: Down to and including healthy tissue and in the subcutaneous layer Percentage of wound debrided: 100 Instrument Used: 5mm curette Tissue Removed: adherent slough/scab, devitalized tissue Severity: Fat Layer Exposed Amount of bleeding with debridement: Mild Bleeding Controlled with: Pressure Patient tolerated procedure: Patient tolerated procedure well Post-Debridement Measurements and Additional Note: Post-Debridement Measurements/Treatment CORBY - Nurse 1 - General Ulcer Assessment Start: 05/14/22 08:07 Freq: Status: Active Protocol: JC Activity Type Activity Date Activity User E-sign Co-sign Detail Recorded Client Recorded Date Recorded By Document 05/14/22 08:07 KENTRELL [id number] 05/14/22 08:18 JF 05/14/22 08:07 - Today's Visit Information Type of service Follow-up Visit (Physician/MECHANIC ) Arrival Mode Ambulatory Patient Requires Transmission-Based No Precautions Vital Signs Temperature (97.8 F-99.1 F) 96.4 F L Temperature Source Temporal Pulse Rate (60-100) 72 Pulse Location Monitor Respiratory Rate (12-18) 18 Respiratory rate source Observation Blood Pressure (90/60-120/80) 129/74 H Blood Pressure Mean (mm Hg) 92 Source Monitor Position Sitting Blood Pressure Location Left Arm History Since Last Visit- (Skip if this is Patient's initial visit) Have you changed medications since your No last visit? Any new allergies or adverse reactions No Had a fall/change in ADL's that may No increase risk of falls Signs or symptoms of abuse and/or No neglect since last visit Have you been in the hospital since your No last visit? Has dressing in place as prescribed Yes Has compression in place as prescribed N/A Has offloadiing in place as prescribed N/A Experienced any changes in pain level or No management Left Footwear Regular Shoe Right Footwear Regular Shoe Pain Scale: 0-10 Numeric Is Patient Pain Free? Yes - Nurse 1 - General Ulcer Measurement Start: 05/14/22 08:07 Freq: Status: Active Protocol: Activity Type Activity Date Activity User E-sign Co-sign Detail Recorded Client Recorded Date Recorded By Document 05/14/22 08:07 KENTRELL [id number] 05/14/22 08:18 KENTRELL 05/14/22 08:07 Wound Center Nurse 1 #8 Right Lat Foot -Combined with other wound No -Current Size (cm) - Length 0.8 -Current Size (cm) - Width 0.5 -Current Size (cm) - Depth 0.1 -Total Square Cm 0.40 -Photo Taken Yes -Epithelialization Medium 34-66% -Tunneling No -Undermining/Tunneling No -Circular Undermining No -Exudate Amt None Present -Wound Margin Indistinct, Non -Visible -Granulation Amt None Present (0 %) -Slough/Fibrin Yes -Necrosis Amt Large (67-100%) -Necrotic Tissue Type Adherent Slough -Texture (Kirstie-wound Skin Appearance) Assessed,Not Assessed -Moisture (Kirstie-wound Skin Appearance) No Abnormality, Assessed -Color (Kirstie-wound Skin Appearance) No Abnormality, Assessed -Temperature (Kirstie-wound Skin No Abnormality Appearance) (Pt Warm) -Tenderness on Palpation (Kirstie-wound Yes Skin Appearance) -Ulcer Cleansing Rinsed/ Irrigated with Saline -Foul Odor after Cleansing No -Anesthetic Used 5% Lidocaine Gel #7 Right 1st Toe -Combined with other wound No -Current Size (cm) - Length 0.1 -Current Size (cm) - Width 0.1 -Current Size (cm) - Depth 0.1 -Total Square Cm 0.01 -Photo Taken Yes -Epithelialization Large 67-100% -Tunneling No -Undermining/Tunneling No -Circular Undermining No -Exudate Amt None Present -Wound Margin Fibrotic Scar, Thickened Scar -Granulation Amt None Present (0 %) -Slough/Fibrin Yes -Necrosis Amt Large (67-100%) -Necrotic Tissue Type Adherent Slough -Structure Exposed N/A -Texture (Kirstie-wound Skin Appearance) No Abnormality, Assessed -Moisture (Kirstie-wound Skin Appearance) No Abnormality, Assessed,Dry/ Scaly -Color (Kirstie-wound Skin Appearance) No Abnormality, Assessed -Temperature (Kirstie-wound Skin No Abnormality Appearance) (Pt Warm) -Tenderness on Palpation (Kirstie-wound No Skin Appearance) -Ulcer Cleansing Rinsed/ Irrigated with Saline -Foul Odor after Cleansing No -Anesthetic Used 5% Lidocaine Gel #6 R Dorsal -Combined with other wound No -Current Size (cm) - Length 0 -Current Size (cm) - Width 0 -Current Size (cm) - Depth 0 -Total Square Cm 0 -Photo Taken Yes -Epithelialization Large 67-100% #5 L wrist -Combined with other wound No -Current Size (cm) - Length 0.1 -Current Size (cm) - Width 0.1 -Current Size (cm) - Depth 0.1 -Total Square Cm 0.01 -Photo Taken Yes -Epithelialization Large 67-100% -Tunneling No -Undermining/Tunneling No -Circular Undermining No -Exudate Amt None Present -Wound Margin Fibrotic Scar, Thickened Scar #3 R Ant Ankle -Combined with other wound No -Current Size (cm) - Length 0.8 -Current Size (cm) - Width 1.5 -Current Size (cm) - Depth 0.1 -Total Square Cm 1.20 -Photo Taken Yes -Epithelialization Small 1-33% -Tunneling No -Undermining/Tunneling No -Circular Undermining No -Exudate Amt None Present -Wound Margin Fibrotic Scar, Thickened Scar -Granulation Amt Medium (34-66%) -Granulation Quality Naomi -Slough/Fibrin Yes -Necrosis Amt Small (1-33%) -Necrotic Tissue Type Adherent Slough -Structure Exposed N/A -Texture (Kirstie-wound Skin Appearance) Assessed -Moisture (Kirstie-wound Skin Appearance) Assessed -Color (Kirstie-wound Skin Appearance) Assessed -Temperature (Kirstie-wound Skin No Abnormality Appearance) (Pt Warm) -Tenderness on Palpation (Kirstie-wound No Skin Appearance) -Ulcer Cleansing Rinsed/ Irrigated with Saline -Foul Odor after Cleansing No -Anesthetic Used 5% Lidocaine Gel Lower Limb Edema Present NA Additional Wound Wound debrided: R ant ankle Laterality: Right Type of Debridement: Excisional debridement Anesthesia Used: 5% Lidocaine Gel and Cetacaine Depth: Down to and including healthy tissue and in the subcutaneous layer Percentage of wound debrided: 100 Instrument Used: 5mm curette, #10 blade and Forceps Tissue Removed: adherent slough/scab, devitalized tissue Severity: Fat Layer Exposed Amount of bleeding with debridement: Mild Bleeding Controlled with: Pressure Patient tolerated procedure: Patient tolerated procedure well Additional Wound Wound debrided: R dorsal foot Instrument Used: 5mm curette Severity: Fat Layer Exposed Amount of bleeding with debridement: Mild Bleeding Controlled with: Pressure Patient tolerated procedure: Patient tolerated procedure well Operative Diagnosis: healed Additional Wound Wound debrided: L wrist Operative Diagnosis: healed Additional Wound Amount of bleeding with debridement: Mild Additional Wound Wound debrided: R great toe Laterality: Right Type of Debridement: Excisional debridement Anesthesia Used: 5% Lidocaine Gel Depth: Down to and including healthy tissue Instrument Used: 3mm curette Tissue Removed: slough, devitalized tissue Bleeding Controlled with: Pressure Patient tolerated procedure: Patient tolerated procedure well Assessment/Plan Assessment/Plan (1) 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 R dorsal foot and posterior lower leg wound healed. L wrist wound healed. Only R anterior ankle and lateral malleolus wounds remain. All wound bases had pink granulation tissue and good bleeding. Will apply promogran to RLE wounds, cover with adaptic and kerlix, tubigrips forcompression. Change dressings daily or more often as needed to keep clean and dry. Continue to apply collagen hydrogel to L wrist wound for 1 more week. Return to clinic in 1 week or sooner as needed. 05/14/22 0853 <Electronically signed by Tonia ACUNA> Cosigner Signature (if applicable): CC: ~ Signed [facility] Work Phone: [phone]) 524-265504-05-2023 Procedure [facility] 05-07-2022 Progress note Author Tonia suman [facility] May 07, 2022 12:01pm Note Date/Time May 07, 2022 12: 01pm [facility] [address] [place] [id number] Progress Note - Wound Care 05/07/22 1156 MR#: [id number] Acct: [id number] Name: ABELARDO IVORY Rep #:[id number] [birth year] : 1950 72 From: Tonia ACUNA PCP: Dr. Ezekiel Carrasco MD Status: REG RCR Location: History of Present Illness Date of Service: 05/07/22 Chief Complaint: Left wrist wound Multiple bilateral lower extremity wounds History of Wound: Patient is new to [facility] but known to me from the vascular surgery clinic. 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 Patient was understandably quite ill following this and hospitalized for some time during which he had significant BLE edema at which point the wounds began to appear. They were overall stable for some time, and then he was hospitalized a few weeks ago for pneumonia, had increased BLE edema again, and wounds worsened/new ones appeared. Since then, he feels they are improved in appearance. The wrist wound appeared during the initial hospitalization for AAA, at that time he describes it initially as a hematoma which eventually developed into this chronic wound. Last week, he had significant erythema and pain in his RLE and was started on antibiotics. Venous duplex was also obtained to r/o DVT and this was negative. Erythema did improve with antibiotics. Patient still has pain in bilateral feet,worse right than left; bilateral feet/ankles are intermittently hypersensitive to touch. He notes continued mild BLE edema. He does not currently wear compression. Subjective Subjective Paitent has been applying Santyl and changing dressings for his BLE wounds as directed. He just ran out of Santyl and is not able to get it for an affordable mann. He has been applying hydrogel to L wrist wound as directed. No new/worsening pain, erythema, swelling, drainage, foul odor, F/C, N/V. Objective Data Objective Data Vital Signs: Vital Signs Temp Pulse Resp BP O2 Del Method O2 Flow Rate 96.6 F L 67 16 129/66 H Room Air 2 05/07/22 10:14 05/07/22 10:14 05/07/22 10:14 05/07/22 10:14 05/07/22 10:14 04/16/22 14:11 Oxygen Flow Rate (L/min) 2 Oxygen Delivery Method Room Air Charges/Coding Wound Center CF Procedures [id number]: [id number] RMVL DEVITAL TIS ADDL 20CM/< Multi Select Codes Wound Center CF Procedures [id number]: [id number] RMVL DEVITAL TIS ADDL 20CM/< Physical Exam Const alert, oriented x3 and no apparent distress General Appearance: cooperative, comfortable and well developed HEENT normocephalic, head/scalp atraumatic, hearing grossly normal bilaterally, external ears normal and external nose normal Eyes EOMs intact bilaterally General Eye: normal appearance of both eyes Neck full ROM General: normal visual inspection and trachea midline Resp normal respiratory effort, no retractions and no use of accessory muscles Effort and Inspection: able to speak in complete sentences and symmetric chest movement Cardio regular rate and regular rhythm Peripheral Pulses: brachial pulses present and radial pulses present Extremity Extremity Narrative: Mild bilateral lower extremity edema, right worse than left. Patient had sensitivity to light touch, especially on R foot. Skin Wounds: wounds noted Wound Narrative: All LLE wounds have healed. Only 4 remain on RLE. Naomi, granulation tissue at the wound beds. Good bleeding. No significant erythema, foul odor, drainage noted. Left wrist wound with pink granulation tissue at base, minimal slough. Significantly decreased in size from last week. 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: R cherry sorter lower leg Laterality: Right Type of Debridement: Excisional debridement Anesthesia Used: 5% Lidocaine Gel and Cetacaine Depth: Down to and including healthy tissue and in the subcutaneous layer Percentage of wound debrided: 100 Instrument Used: 5mm curette Tissue Removed: adherent slough/scab, devitalized tissue Severity: Fat Layer Exposed Amount of bleeding with debridement: Mild Bleeding Controlled with: Pressure Patient tolerated procedure: Patient tolerated procedure well Post-Debridement Measurements and Additional Note: Post-Debridement Measurements/Treatment - Nurse 1 - General Ulcer Assessment Start: 04/09/22 13:29 Freq: Status: Active Protocol: [email or web address] Activity Type Activity Date Activity User E-sign Co-sign Detail Recorded Client Recorded Date Recorded By Document 04/09/22 13:30 MD [id number] 04/09/22 13:42 MD Document 04/16/22 14:11 MD [id number] 04/16/22 14:21 MD Document 04/23/22 14:03 [place] [id number] 04/23/22 14:17 [place] Document 04/30/22 13:54 MD [id number] 04/30/22 14:09 MD Document 05/07/22 10:14 [facility] [id number] 05/07/22 10:26 [facility] 04/09/22 04/16/22 04/23/22 13:30 14:11 14:03 - Today's Visit Information Type of service Initial Visit Follow-up Visit Follow-up Visit (Physician/MECHANIC (Physician/MECHANIC ) ) Arrival Mode Ambulatory Ambulatory Ambulatory Transfer Assistance None None Patient Identification Verified (Name & Yes Yes Yes ) Patient Requires Transmission-Based No No No Precautions Safety Precautions NA Finger Stick Blood Sugar(mg/dl) (if 149 indicated): Blood Sugar Stated by Patient Vital Signs Temperature (97.8 F-99.1 F) 97.2 F L 97 F L Temperature Source Temporal Temporal Pulse Rate (60-100) 58 L 74 Pulse Location Monitor Monitor Respiratory Rate (12-18) 18 16 Respiratory rate source Observation Observation Oxygen Delivery Method Nasal Cannula Room Air O2 L/MIN (L/min) 2 Blood Pressure (90/60-120/80) 155/78 H 149/72 H Blood Pressure Mean (mm Hg) 103 97 Source Monitor Monitor Position Sitting Sitting Blood Pressure Location Right Arm Right Arm History Since Last Visit- (Skip if this is Patient's initial visit) Have you changed medications since your No No last visit? Any new allergies or adverse reactions No No Had a fall/change in ADL's that may No No increase risk of falls Signs or symptoms of abuse and/or No No neglect since last visit Have you been in the hospital since your No No last visit? Has dressing in place as prescribed Yes Yes Has compression in place as prescribed No No Has offloadiing in place as prescribed No N/A Experienced any changes in pain level or No No management Left Footwear Regular Shoe Regular Shoe Right Footwear Regular Shoe Regular Shoe Pain Scale: 0-10 Numeric Is Patient Pain Free? No Yes Yes 04/30/22 05/07/22 13:54 10:14 WC - Today's Visit Information Type of service Follow-up Visit Initial Visit (Physician/MECHANIC ) Arrival Mode Ambulatory Ambulatory Transfer Assistance None Patient Identification Verified (Name & Yes Yes ) Patient Requires Transmission-Based No No Precautions Safety Precautions NA Finger Stick Blood Sugar(mg/dl) (if indicated): Blood Sugar Vital Signs Temperature (97.8 F-99.1 F) 96.8 F L 96.6 F L Temperature Source Temporal Temporal Pulse Rate (60-100) 83 67 Pulse Location Monitor Monitor Respiratory Rate (12-18) 16 Respiratory rate source Observation Oxygen Delivery Method Room Air O2 L/MIN (L/min) Blood Pressure (90/60-120/80) 141/74 H 129/66 H Blood Pressure Mean (mm Hg) 96 87 Source Monitor Monitor Position Sitting Blood Pressure Location Left Arm History Since Last Visit- (Skip if this is Patient's initial visit) Have you changed medications since your No No last visit? Any new allergies or adverse reactions No No Had a fall/change in ADL's that may No No increase risk of falls Signs or symptoms of abuse and/or No No neglect since last visit Have you been in the hospital since your No No last visit? Has dressing in place as prescribed Yes Yes Has compression in place as prescribed N/A Yes Has offloadiing in place as prescribed N/A N/A Experienced any changes in pain level or No No management Left Footwear Regular Shoe Regular Shoe Right Footwear Regular Shoe Regular Shoe Pain Scale: 0-10 Numeric Is Patient Pain Free? Yes Yes WC - Nurse 1 - General Ulcer Measurement Start: 04/09/22 13:29 Freq: Status: Active Protocol: Activity Type Activity Date Activity User E-sign Co-sign Detail Recorded Client Recorded Date Recorded By Document 04/09/22 13:30 AK [id number] 04/09/22 13:42 AK Document 04/16/22 14:11 AK [id number] 04/16/22 14:21 AK Document 04/23/22 14:03 [place] [id number] 04/23/22 14:17 MT Document 04/30/22 13:54 AK [id number] 04/30/22 14:09 AK Document 05/07/22 10:14 [facility] [id number] 05/07/22 10:26 BMF 04/09/22 04/16/22 04/23/22 13:30 14:11 14:03 Wound Center Nurse 1 #10 Left Dorsal -Combined with other wound -Current Size (cm) - Length -Current Size (cm) - Width -Current Size (cm) - Depth -Total Square Cm -Date of Last Picture (Recall this field) -Photo Taken -Epithelialization -Tunneling -Undermining/Tunneling -Circular Undermining -Change in Wound Grade/Stage -Exudate Amt -Exudate Type -Wound Margin -Granulation Amt -Granulation Quality -Slough/Fibrin -Necrosis Amt -Necrotic Tissue Type -Structure Exposed -Texture (Kirstie-wound Skin Appearance) -Moisture (Kirstie-wound Skin Appearance) -Color (Kirstie-wound Skin Appearance) -Temperature (Kirstie-wound Skin Appearance) -Tenderness on Palpation (Kirstie-wound Skin Appearance) -Ulcer Cleansing -Foul Odor after Cleansing -Anesthetic Used #9 Right Achilles -Combined with other wound No -Current Size (cm) - Length 0 -Current Size (cm) - Width 0 -Current Size (cm) - Depth 0 -Total Square Cm 0 -Date of Last Picture (Recall this 04/23/22 field) -Photo Taken No -Epithelialization Large 67-100% -Tunneling -Undermining/Tunneling -Circular Undermining -Change in Wound Grade/Stage -Exudate Amt -Wound Margin -Granulation Amt -Granulation Quality -Slough/Fibrin -Necrosis Amt -Necrotic Tissue Type -Structure Exposed -Texture (Kirstie-wound Skin Appearance) -Moisture (Kirstie-wound Skin Appearance) -Color (Kirstie-wound Skin Appearance) -Temperature (Kirstie-wound Skin Appearance) -Tenderness on Palpation (Kirstie-wound Skin Appearance) -Ulcer Cleansing -Foul Odor after Cleansing -Anesthetic Used -Wound Comment(s) #4 L ankle -Combined with other wound No No No -Current Size (cm) - Length 4 2 0.7 -Current Size (cm) - Width 4.8 1.1 1 -Current Size (cm) - Depth 0.1 0.1 0.1 -Total Square Cm 19.2 2.2 0.7 -Date of Last Picture (Recall this 04/23/22 field) -Photo Taken Yes Yes Yes -Epithelialization None Present -Tunneling No No No -Undermining/Tunneling No No No -Circular Undermining No No No -Change in Wound Grade/Stage No -Exudate Amt None Present Medium Small -Exudate Type Serosanguineous Serosanguineous -Wound Margin Distinct, Distinct, Distinct, Outline Outline Outline Attached Attached Attached -Granulation Amt None Present (0 Medium (34-66%) Medium (34-66%) %) -Granulation Quality N/A Naomi Red -Slough/Fibrin Yes Yes Yes -Necrosis Amt Large (67-100%) Medium (34-66%) Medium (34-66%) -Necrotic Tissue Type Eschar Adherent Slough Adherent Slough -Structure Exposed N/A N/A -Texture (Kirstie-wound Skin Appearance) Assessed Assessed Assessed, Scarring -Moisture (Kirstie-wound Skin Appearance) Assessed,Dry/ Assessed,Dry/ Assessed Scaly Scaly -Color (Kirstie-wound Skin Appearance) No Abnormality, Assessed Assessed Not Assessed -Temperature (Kirstie-wound Skin No Abnormality No Abnormality No Abnormality Appearance) (Pt Warm) (Pt Warm) (Pt Warm) -Tenderness on Palpation (Kirstie-wound No No No Skin Appearance) -Ulcer Cleansing Rinsed/ Wound Cleanser Soap and Water Irrigated with Saline -Foul Odor after Cleansing No No No -Anesthetic Used 4% Lidocaine 5% Lidocaine 5% Lidocaine Solution,5% Gel Gel Lidocaine Gel -Wound Comment(s) scabbed #3 R Ant Ankle -Combined with other wound No No No -Current Size (cm) - Length 8 1.8 1.5 -Current Size (cm) - Width 2 1 1 -Current Size (cm) - Depth 0.1 0.1 0.1 -Total Square Cm 16 1.8 1.5 -Date of Last Picture (Recall this 04/09/22 04/23/22 field) -Photo Taken Yes Yes Yes -Epithelialization None Present -Tunneling No No No -Undermining/Tunneling No No No -Circular Undermining No No No -Change in Wound Grade/Stage No -Exudate Amt None Present Medium None Present -Exudate Type Serosanguineous -Wound Margin Distinct, Distinct, Distinct, Outline Outline Outline Attached Attached Attached -Granulation Amt None Present (0 Medium (34-66%) None Present (0 %) %) -Granulation Quality N/A Naomi -Slough/Fibrin Yes Yes Yes -Necrosis Amt Large (67-100%) Large (67-100%) Large (67-100%) -Necrotic Tissue Type Eschar Adherent Slough Eschar -Structure Exposed N/A N/A -Texture (Kirstie-wound Skin Appearance) No Abnormality, Assessed Assessed, Assessed Scarring -Moisture (Kirstie-wound Skin Appearance) Assessed,Dry/ Dry/Scaly Assessed Scaly -Color (Kirsite-wound Skin Appearance) No Abnormality, Assessed Assessed Assessed -Temperature (Kirstie-wound Skin No Abnormality No Abnormality No Abnormality Appearance) (Pt Warm) (Pt Warm) (Pt Warm) -Tenderness on Palpation (Kirstie-wound No No No Skin Appearance) -Ulcer Cleansing Rinsed/ Wound Cleanser Soap and Water Irrigated with Saline -Foul Odor after Cleansing No No No -Anesthetic Used 4% Lidocaine 5% Lidocaine 5% Lidocaine Solution,5% Gel Gel Lidocaine Gel -Wound Comment(s) scabbed #2 R ankle cluster -Combined with other wound No No No -Current Size (cm) - Length 6.5 6.5 2 -Current Size (cm) - Width 5 14 1.1 -Current Size (cm) - Depth 0.1 0.1 0.1 -Total Square Cm 32.5 91.0 2.2 -Date of Last Picture (Recall this 04/09/22 04/23/22 field) -Photo Taken Yes Yes -Epithelialization None Present -Tunneling No No No -Undermining/Tunneling No No No -Circular Undermining No No No -Change in Wound Grade/Stage No -Exudate Amt None Present Medium Small -Exudate Type Serosanguineous Serosanguineous -Wound Margin Distinct, Distinct, Outline Outline Attached Attached -Granulation Amt None Present (0 Medium (34-66%) None Present (0 %) %) -Granulation Quality N/A Naomi -Slough/Fibrin Yes Yes Yes -Necrosis Amt Large (67-100%) Large (67-100%) Large (67-100%) -Necrotic Tissue Type Eschar Adherent Slough Eschar -Structure Exposed N/A N/A -Texture (Kirstie-wound Skin Appearance) No Abnormality, Assessed Assessed, Assessed Scarring -Moisture (Kirstie-wound Skin Appearance) Assessed,Dry/ Dry/Scaly Assessed Scaly -Color (Kirstie-wound Skin Appearance) No Abnormality, Assessed Assessed Assessed -Temperature (Kirstie-wound Skin No Abnormality No Abnormality No Abnormality Appearance) (Pt Warm) (Pt Warm) (Pt Warm) -Tenderness on Palpation (Kirstie-wound No No No Skin Appearance) -Ulcer Cleansing Rinsed/ Wound Cleanser Soap and Water Irrigated with Saline -Foul Odor after Cleansing No No No -Anesthetic Used 4% Lidocaine 5% Lidocaine 5% Lidocaine Solution,5% Gel Gel Lidocaine Gel -Wound Comment(s) scabbed #1 R lateral foot -Combined with other wound No -Current Size (cm) - Length 2.2 -Current Size (cm) - Width 4.5 -Current Size (cm) - Depth 0.1 -Total Square Cm 9.90 -Date of Last Picture (Recall this 04/09/22 field) -Photo Taken Yes -Tunneling No -Undermining/Tunneling No -Circular Undermining No -Change in Wound Grade/Stage No -Exudate Amt None Present -Wound Margin Distinct, Outline Attached -Granulation Amt None Present (0 %) -Granulation Quality N/A -Slough/Fibrin No -Necrosis Amt Large (67-100%) -Necrotic Tissue Type Eschar -Structure Exposed N/A -Texture (Kirstie-wound Skin Appearance) No Abnormality, Assessed -Moisture (Kirstie-wound Skin Appearance) No Abnormality, Assessed -Color (Kirstie-wound Skin Appearance) No Abnormality, Assessed -Temperature (Kirstie-wound Skin No Abnormality Appearance) (Pt Warm) -Tenderness on Palpation (Kirstie-wound No Skin Appearance) -Ulcer Cleansing Rinsed/ Irrigated with Saline -Foul Odor after Cleansing No -Anesthetic Used 4% Lidocaine Solution,5% Lidocaine Gel -Wound Comment(s) scabbed #8 Right Lat Foot -Combined with other wound No -Current Size (cm) - Length 0 -Current Size (cm) - Width 0 -Current Size (cm) - Depth 0 -Total Square Cm 0 -Date of Last Picture (Recall this 04/23/22 field) -Photo Taken Yes -Epithelialization -Tunneling -Undermining/Tunneling -Circular Undermining -Change in Wound Grade/Stage -Exudate Amt -Exudate Type -Wound Margin -Granulation Amt -Granulation Quality -Slough/Fibrin -Necrosis Amt -Necrotic Tissue Type -Structure Exposed -Texture (Kirstie-wound Skin Appearance) -Moisture (Kirstie-wound Skin Appearance) -Color (Kirstie-wound Skin Appearance) -Temperature (Kirstie-wound Skin Appearance) -Tenderness on Palpation (Kirstie-wound Skin Appearance) -Ulcer Cleansing -Foul Odor after Cleansing -Anesthetic Used #7 Right 1st Toe -Combined with other wound No -Current Size (cm) - Length 0.1 -Current Size (cm) - Width 0.1 -Current Size (cm) - Depth 0.1 -Total Square Cm 0.01 -Date of Last Picture (Recall this 04/23/22 field) -Photo Taken Yes -Epithelialization Large 67-100% -Tunneling -Undermining/Tunneling -Circular Undermining -Change in Wound Grade/Stage -Exudate Amt -Exudate Type -Wound Margin -Granulation Amt -Granulation Quality -Slough/Fibrin -Necrosis Amt -Necrotic Tissue Type -Structure Exposed -Texture (Kirstie-wound Skin Appearance) -Moisture (Kirstie-wound Skin Appearance) -Color (Kirstie-wound Skin Appearance) -Temperature (Kirstie-wound Skin Appearance) -Tenderness on Palpation (Kirstie-wound Skin Appearance) -Ulcer Cleansing -Foul Odor after Cleansing -Anesthetic Used #6 R Dorsal -Combined with other wound No -Combined with (Name of Wound-Exactly as it is documented) -Current Size (cm) - Length 6.5 -Current Size (cm) - Width 2.5 -Current Size (cm) - Depth 0.1 -Total Square Cm 16.25 -Date of Last Picture (Recall this 04/23/22 field) -Photo Taken Yes -Epithelialization Small 1-33% -Tunneling No -Undermining/Tunneling No -Circular Undermining No -Exudate Amt Small -Exudate Type Serosanguineous -Wound Margin Distinct, Outline Attached -Granulation Amt Medium (34-66%) -Granulation Quality Red -Slough/Fibrin Yes -Necrosis Amt Medium (34-66%) -Necrotic Tissue Type Adherent Slough -Texture (Kirstie-wound Skin Appearance) Assessed, Scarring -Moisture (Kirstie-wound Skin Appearance) Assessed -Color (Kirstie-wound Skin Appearance) Assessed -Temperature (Kirstie-wound Skin No Abnormality Appearance) (Pt Warm) -Tenderness on Palpation (Kirstie-wound No Skin Appearance) -Ulcer Cleansing Soap and Water -Foul Odor after Cleansing No -Anesthetic Used 5% Lidocaine Gel #5 L wrist -Combined with other wound No No No -Current Size (cm) - Length 1.1 0.5 0.4 -Current Size (cm) - Width 3.2 2.1 1.6 -Current Size (cm) - Depth 0.1 0.3 0.1 -Total Square Cm 3.52 1.05 0.64 -Date of Last Picture (Recall this 04/23/22 field) -Photo Taken Yes Yes Yes -Epithelialization None Present -Tunneling No No No -Undermining/Tunneling No No No -Circular Undermining No No No -Change in Wound Grade/Stage No -Exudate Amt None Present Medium Small -Exudate Type Serosanguineous Serosanguineous -Wound Margin Distinct, Distinct, Distinct, Outline Outline Outline Attached Attached Attached -Granulation Amt None Present (0 Medium (34-66%) None Present (0 %) %) -Granulation Quality Naomi -Slough/Fibrin Yes Yes Yes -Necrosis Amt Large (67-100%) Large (67-100%) Large (67-100%) -Necrotic Tissue Type Adherent Slough Adherent Slough Adherent Slough -Structure Exposed N/A N/A -Texture (Kirstie-wound Skin Appearance) No Abnormality, Assessed Assessed, Assessed Scarring -Moisture (Kirstie-wound Skin Appearance) Assessed,Dry/ Dry/Scaly Assessed Scaly -Color (Kirstie-wound Skin Appearance) No Abnormality, Assessed Assessed Assessed -Temperature (Kirstie-wound Skin No Abnormality No Abnormality No Abnormality Appearance) (Pt Warm) (Pt Warm) (Pt Warm) -Tenderness on Palpation (Kirstie-wound No No No Skin Appearance) -Ulcer Cleansing Rinsed/ Wound Cleanser Soap and Water Irrigated with Saline -Foul Odor after Cleansing No No Yes, Due to Product Use -Anesthetic Used 4% Lidocaine 5% Lidocaine 5% Lidocaine Solution,5% Gel Gel Lidocaine Gel -Wound Comment(s) scabbed Lower Limb Edema Present No Yes Right Calf (cm) 30 31 31 Right Ankle (cm) 20.5 20.6 1.5 Left Calf (cm) 30.5 30.2 30.5 Left Ankle (cm) 19.4 19 1.5 04/30/22 05/07/22 13:54 10:14 Wound Center Nurse 1 #10 Left Dorsal -Combined with other wound No No -Current Size (cm) - Length 0.5 0.1 -Current Size (cm) - Width 0.6 0.1 -Current Size (cm) - Depth 0.1 0.1 -Total Square Cm 0.30 0.01 -Date of Last Picture (Recall this 05/07/22 field) -Photo Taken No Yes -Epithelialization Large 67-100% -Tunneling No -Undermining/Tunneling No -Circular Undermining No -Change in Wound Grade/Stage No -Exudate Amt Medium -Exudate Type Serosanguineous -Wound Margin Distinct, Outline Attached -Granulation Amt None Present (0 %) -Granulation Quality N/A -Slough/Fibrin Yes -Necrosis Amt Large (67-100%) -Necrotic Tissue Type Adherent Slough -Structure Exposed N/A -Texture (Kirstie-wound Skin Appearance) No Abnormality, Assessed -Moisture (Kirstie-wound Skin Appearance) No Abnormality, Assessed -Color (Kirstie-wound Skin Appearance) No Abnormality, Assessed -Temperature (Kirstie-wound Skin No Abnormality Appearance) (Pt Warm) -Tenderness on Palpation (Kirstie-wound No Skin Appearance) -Ulcer Cleansing Rinsed/ Irrigated with Saline -Foul Odor after Cleansing No -Anesthetic Used 5% Lidocaine Gel #9 Right Achilles -Combined with other wound No No -Current Size (cm) - Length 0.5 0.1 -Current Size (cm) - Width 0.4 0.1 -Current Size (cm) - Depth 0.1 0.1 -Total Square Cm 0.20 0.01 -Date of Last Picture (Recall this 05/07/22 field) -Photo Taken Yes Yes -Epithelialization Large 67-100% -Tunneling No -Undermining/Tunneling No -Circular Undermining No -Change in Wound Grade/Stage No -Exudate Amt None Present -Wound Margin Distinct, Outline Attached -Granulation Amt None Present (0 %) -Granulation Quality N/A -Slough/Fibrin Yes -Necrosis Amt None Present (0 %) -Necrotic Tissue Type Adherent Slough -Structure Exposed N/A -Texture (Kristie-wound Skin Appearance) No Abnormality, Assessed -Moisture (Kirstie-wound Skin Appearance) No Abnormality, Assessed -Color (Kirstie-wound Skin Appearance) No Abnormality, Assessed -Temperature (Kirstie-wound Skin No Abnormality Appearance) (Pt Warm) -Tenderness on Palpation (Kirstie-wound No Skin Appearance) -Ulcer Cleansing Rinsed/ Irrigated with Saline -Foul Odor after Cleansing No -Anesthetic Used 5% Lidocaine Gel -Wound Comment(s) scabbed #4 L ankle -Combined with other wound -Current Size (cm) - Length -Current Size (cm) - Width -Current Size (cm) - Depth -Total Square Cm -Date of Last Picture (Recall this field) -Photo Taken -Epithelialization -Tunneling -Undermining/Tunneling -Circular Undermining -Change in Wound Grade/Stage -Exudate Amt -Exudate Type -Wound Margin -Granulation Amt -Granulation Quality -Slough/Fibrin -Necrosis Amt -Necrotic Tissue Type -Structure Exposed -Texture (Kirstie-wound Skin Appearance) -Moisture (Kirstie-wound Skin Appearance) -Color (Kirstie-wound Skin Appearance) -Temperature (Kirstie-wound Skin Appearance) -Tenderness on Palpation (Kirstie-wound Skin Appearance) -Ulcer Cleansing -Foul Odor after Cleansing -Anesthetic Used -Wound Comment(s) #3 R Ant Ankle -Combined with other wound No No -Current Size (cm) - Length 6.2 0.9 -Current Size (cm) - Width 2 1.8 -Current Size (cm) - Depth 0.1 0.1 -Total Square Cm 12.4 1.62 -Date of Last Picture (Recall this 04/30/22 05/07/22 field) -Photo Taken Yes Yes -Epithelialization Small 1-33% -Tunneling No No -Undermining/Tunneling No No -Circular Undermining No No -Change in Wound Grade/Stage No -Exudate Amt Large Small -Exudate Type Yellow/Green Serosanguineous -Wound Margin Distinct, Distinct, Outline Outline Attached Attached -Granulation Amt None Present (0 Small (1-33%) %) -Granulation Quality N/A Red -Slough/Fibrin Yes Yes -Necrosis Amt Large (67-100%) Large (67-100%) -Necrotic Tissue Type Adherent Slough Adherent Slough -Structure Exposed N/A -Texture (Kirstie-wound Skin Appearance) No Abnormality, Assessed, Assessed Scarring -Moisture (Kirstie-wound Skin Appearance) No Abnormality, Assessed Assessed -Color (Kirstie-wound Skin Appearance) No Abnormality, Assessed Assessed -Temperature (Kirstie-wound Skin No Abnormality No Abnormality Appearance) (Pt Warm) (Pt Warm) -Tenderness on Palpation (Kirstie-wound No No Skin Appearance) -Ulcer Cleansing Rinsed/ Rinsed/ Irrigated with Irrigated with Saline Saline -Foul Odor after Cleansing No No -Anesthetic Used 5% Lidocaine 5% Lidocaine Gel Gel -Wound Comment(s) #2 R ankle cluster -Combined with other wound -Current Size (cm) - Length -Current Size (cm) - Width -Current Size (cm) - Depth -Total Square Cm -Date of Last Picture (Recall this field) -Photo Taken -Epithelialization -Tunneling -Undermining/Tunneling -Circular Undermining -Change in Wound Grade/Stage -Exudate Amt -Exudate Type -Wound Margin -Granulation Amt -Granulation Quality -Slough/Fibrin -Necrosis Amt -Necrotic Tissue Type -Structure Exposed -Texture (Kirstie-wound Skin Appearance) -Moisture (Kirstie-wound Skin Appearance) -Color (Kirstie-wound Skin Appearance) -Temperature (Kirstie-wound Skin Appearance) -Tenderness on Palpation (Kirstie-wound Skin Appearance) -Ulcer Cleansing -Foul Odor after Cleansing -Anesthetic Used -Wound Comment(s) #1 R lateral foot -Combined with other wound -Current Size (cm) - Length -Current Size (cm) - Width -Current Size (cm) - Depth -Total Square Cm -Date of Last Picture (Recall this field) -Photo Taken -Tunneling -Undermining/Tunneling -Circular Undermining -Change in Wound Grade/Stage -Exudate Amt -Wound Margin -Granulation Amt -Granulation Quality -Slough/Fibrin -Necrosis Amt -Necrotic Tissue Type -Structure Exposed -Texture (Kirstie-wound Skin Appearance) -Moisture (Ikrstie-wound Skin Appearance) -Color (Kirstie-wound Skin Appearance) -Temperature (Kirstie-wound Skin Appearance) -Tenderness on Palpation (Kirstie-wound Skin Appearance) -Ulcer Cleansing -Foul Odor after Cleansing -Anesthetic Used -Wound Comment(s) #8 Right Lat Foot -Combined with other wound No -Current Size (cm) - Length 1.2 1 -Current Size (cm) - Width 0.6 0.7 -Current Size (cm) - Depth 0.1 0.1 -Total Square Cm 0.72 0.7 -Date of Last Picture (Recall this 05/07/22 field) -Photo Taken Yes Yes -Epithelialization None Present -Tunneling No No -Undermining/Tunneling No No -Circular Undermining No No -Change in Wound Grade/Stage No -Exudate Amt Medium Small -Exudate Type Serosanguineous Serosanguineous -Wound Margin Distinct, Distinct, Outline Outline Attached Attached -Granulation Amt None Present (0 Small (1-33%) %) -Granulation Quality N/A Red -Slough/Fibrin Yes Yes -Necrosis Amt Large (67-100%) Large (67-100%) -Necrotic Tissue Type Adherent Slough Adherent Slough -Structure Exposed N/A -Texture (Kirstie-wound Skin Appearance) No Abnormality, Assessed, Assessed Scarring -Moisture (Kirstie-wound Skin Appearance) No Abnormality, Assessed Assessed -Color (Kirstie-wound Skin Appearance) No Abnormality, Assessed Assessed -Temperature (Kirstie-wound Skin No Abnormality No Abnormality Appearance) (Pt Warm) (Pt Warm) -Tenderness on Palpation (Kirstie-wound No No Skin Appearance) -Ulcer Cleansing Rinsed/ Rinsed/ Irrigated with Irrigated with Saline Saline -Foul Odor after Cleansing No No -Anesthetic Used 5% Lidocaine 5% Lidocaine Gel Gel #7 Right 1st Toe -Combined with other wound No No -Current Size (cm) - Length 0.4 0.6 -Current Size (cm) - Width 0.6 0.3 -Current Size (cm) - Depth 0.1 0.2 -Total Square Cm 0.24 0.18 -Date of Last Picture (Recall this 05/07/22 field) -Photo Taken Yes Yes -Epithelialization Small 1-33% -Tunneling No No -Undermining/Tunneling No No -Circular Undermining No No -Change in Wound Grade/Stage No -Exudate Amt None Present Small -Exudate Type Serosanguineous -Wound Margin Distinct, Distinct, Outline Outline Attached Attached -Granulation Amt None Present (0 Large (67-100%) %) -Granulation Quality N/A Red -Slough/Fibrin Yes No -Necrosis Amt Large (67-100%) None Present (0 %) -Necrotic Tissue Type Adherent Slough -Structure Exposed N/A -Texture (Kirstie-wound Skin Appearance) No Abnormality, Assessed, Assessed Scarring -Moisture (Kirstie-wound Skin Appearance) No Abnormality, Assessed,Dry/ Assessed Scaly -Color (Kirstie-wound Skin Appearance) No Abnormality, Assessed Assessed -Temperature (Kirstie-wound Skin No Abnormality No Abnormality Appearance) (Pt Warm) (Pt Warm) -Tenderness on Palpation (Kirstie-wound No No Skin Appearance) -Ulcer Cleansing Rinsed/ Rinsed/ Irrigated with Irrigated with Saline Saline -Foul Odor after Cleansing No No -Anesthetic Used 5% Lidocaine 5% Lidocaine Gel Gel #6 R Dorsal -Combined with other wound No No -Combined with (Name of Wound-Exactly right ankle as it is documented) -Current Size (cm) - Length 0.3 -Current Size (cm) - Width 0.3 -Current Size (cm) - Depth 0.1 -Total Square Cm 0.09 -Date of Last Picture (Recall this 05/07/22 field) -Photo Taken Yes -Epithelialization Small 1-33% -Tunneling No -Undermining/Tunneling No -Circular Undermining No -Exudate Amt Small -Exudate Type Serosanguineous -Wound Margin Distinct, Outline Attached -Granulation Amt None Present (0 %) -Granulation Quality -Slough/Fibrin Yes -Necrosis Amt Large (67-100%) -Necrotic Tissue Type Eschar -Texture (Kirstie-wound Skin Appearance) Assessed, Scarring -Moisture (Kirstie-wound Skin Appearance) Assessed -Color (Kirstie-wound Skin Appearance) Assessed -Temperature (Kirstie-wound Skin No Abnormality Appearance) (Pt Warm) -Tenderness on Palpation (Kirstie-wound No Skin Appearance) -Ulcer Cleansing Rinsed/ Irrigated with Saline -Foul Odor after Cleansing No -Anesthetic Used 5% Lidocaine Gel #5 L wrist -Combined with other wound No No -Current Size (cm) - Length 0.4 0.1 -Current Size (cm) - Width 0.7 0.3 -Current Size (cm) - Depth 0.1 0.1 -Total Square Cm 0.28 0.03 -Date of Last Picture (Recall this 05/07/22 field) -Photo Taken No Yes -Epithelialization None Present -Tunneling No No -Undermining/Tunneling No No -Circular Undermining No No -Change in Wound Grade/Stage No -Exudate Amt None Present None Present -Exudate Type -Wound Margin Distinct, Outline Attached -Granulation Amt None Present (0 None Present (0 %) %) -Granulation Quality N/A -Slough/Fibrin No Yes -Necrosis Amt None Present (0 Large (67-100%) %) -Necrotic Tissue Type Eschar -Structure Exposed N/A -Texture (Kirstie-wound Skin Appearance) No Abnormality, Assessed, Assessed Scarring -Moisture (Kirstie-wound Skin Appearance) No Abnormality, Assessed,Dry/ Assessed Scaly -Color (Kirstie-wound Skin Appearance) No Abnormality, Assessed Assessed -Temperature (Kirstie-wound Skin No Abnormality No Abnormality Appearance) (Pt Warm) (Pt Warm) -Tenderness on Palpation (Kirstie-wound No No Skin Appearance) -Ulcer Cleansing Rinsed/ Rinsed/ Irrigated with Irrigated with Saline Saline -Foul Odor after Cleansing No No -Anesthetic Used 5% Lidocaine 5% Lidocaine Gel Gel -Wound Comment(s) Lower Limb Edema Present Right Calf (cm) 30.2 Right Ankle (cm) 19.7 Left Calf (cm) 30.2 Left Ankle (cm) 19.1 WC - Nurse 2 - General Ulcer CM Notes Start: 04/09/22 13:29 Freq: Status: Active Protocol: Activity Type Activity Date Activity User E-sign Co-sign Detail Recorded Client Recorded Date Recorded By Document 04/09/22 15:12 PL [id number] 04/09/22 15:29 PL Document 04/16/22 15:08 PL [id number] 04/16/22 15:18 PL Document 04/23/22 15:17 PL [id number] 04/23/22 15:26 PL Document 04/30/22 15:00 PL [id number] 04/30/22 15:08 PL Document 05/07/22 10:45 PL [id number] 05/07/22 10:57 PL 04/09/22 04/16/22 04/23/22 15:12 15:08 15:17 Wound Center Nurse 2 #10 Left Dorsal -Time 14:25 -Correct Patient Yes -Correct Side, Site, Position Yes -Correct Procedure Yes -Procedure Performed Yes -Type of Procedure Debridement -Clinical Debridement Subcutaneous -Tissue Removed Subcutaneous -Post Debridement (cm) - Length 0.7 -Post Debridement (cm) - Width 0.8 -Post Debridement (cm) - Depth 0.1 -Total Square (Post) (cm) 0.56 -Area of Debridement (cm) - Length 0.7 -Area of Debridement (cm) - Width 0.8 -Total Square (Area) (cm) 0.56 -Tunneling No -Undermining/Tunneling No -Circular Undermining No -Wound/Ulcer Outcome Not Healed -Ulcer Cleansing Rinsed/ Irrigated with Saline -Foul Odor after Cleansing No -Bioengineered Tissue No -Bleeding Controlled with Pressure -Treatment Response Procedure Tolerated Well -Debridement - Subq, 1st 20sq cm Yes #9 Right Achilles -Time 14:24 14:25 -Correct Patient Yes Yes -Correct Side, Site, Position Yes Yes -Correct Procedure Yes Yes -Procedure Performed Yes Yes -Type of Procedure Debridement Debridement -Clinical Debridement Subcutaneous Subcutaneous -Tissue Removed Subcutaneous Subcutaneous -Post Debridement (cm) - Length 0.3 1.5 -Post Debridement (cm) - Width 0.5 0.8 -Post Debridement (cm) - Depth 0.1 0.1 -Total Square (Post) (cm) 0.15 1.20 -Area of Debridement (cm) - Length 0.3 1.5 -Area of Debridement (cm) - Width 0.5 0.8 -Total Square (Area) (cm) 0.15 1.20 -Tunneling No No -Undermining/Tunneling No No -Circular Undermining No No -Wound/Ulcer Outcome Not Healed Not Healed -Ulcer Cleansing Rinsed/ Rinsed/ Irrigated with Irrigated with Saline Saline -Foul Odor after Cleansing No No -Bioengineered Tissue No No -Bleeding Controlled with Pressure Pressure -Treatment Response Procedure Procedure Tolerated Well Tolerated Well -Debridement - Subq, 1st 20sq cm Yes No -Debridement, SubQ, ea addt'l 20sq cm 1 or part thereof #4 L ankle -Time 13:35 14:24 -Correct Patient Yes Yes -Correct Side, Site, Position Yes Yes -Correct Procedure Yes Yes -Procedure Performed Yes Yes No -Type of Procedure Debridement Debridement -Clinical Debridement Subcutaneous Subcutaneous -Tissue Removed Subcutaneous Subcutaneous -Post Debridement (cm) - Length 4.8 4.0 -Post Debridement (cm) - Width 1.7 4.5 -Post Debridement (cm) - Depth 0.2 0.1 -Total Square (Post) (cm) 8.16 18.00 -Area of Debridement (cm) - Length 4.8 4.0 -Area of Debridement (cm) - Width 1.7 4.5 -Total Square (Area) (cm) 8.16 18.00 -Tunneling No No -Undermining/Tunneling No No -Circular Undermining No No -Wound/Ulcer Outcome Not Healed Not Healed Healed- Epithelialized -Ulcer Cleansing Rinsed/ Rinsed/ Irrigated with Irrigated with Saline Saline -Foul Odor after Cleansing No No -Bioengineered Tissue No No -Bleeding Controlled with Pressure -Treatment Response Procedure Tolerated Well -Debridement - Subq, 1st 20sq cm No No #3 R Ant Ankle -Time 14:24 14:25 -Correct Patient Yes Yes -Correct Side, Site, Position Yes Yes -Correct Procedure Yes Yes -Procedure Performed Yes Yes -Type of Procedure Debridement Debridement -Clinical Debridement Subcutaneous Subcutaneous -Tissue Removed Subcutaneous Subcutaneous -Post Debridement (cm) - Length 1.9 1.8 -Post Debridement (cm) - Width 1.3 2.5 -Post Debridement (cm) - Depth 0.1 0.1 -Total Square (Post) (cm) 2.47 4.50 -Area of Debridement (cm) - Length 1.9 1.8 -Area of Debridement (cm) - Width 1.3 2.5 -Total Square (Area) (cm) 2.47 4.50 -Tunneling No No -Undermining/Tunneling No No -Circular Undermining No No -Wound/Ulcer Outcome Not Healed Not Healed -Ulcer Cleansing Rinsed/ Rinsed/ Irrigated with Irrigated with Saline Saline -Foul Odor after Cleansing No No -Bioengineered Tissue No No -Bleeding Controlled with Pressure Pressure -Treatment Response Procedure Procedure Tolerated Well Tolerated Well -Debridement - Subq, 1st 20sq cm No No #2 R ankle cluster -Time 14:24 -Correct Patient Yes -Correct Side, Site, Position Yes -Correct Procedure Yes -Procedure Performed Yes No -Type of Procedure Debridement -Clinical Debridement Subcutaneous -Tissue Removed Subcutaneous -Post Debridement (cm) - Length 1.8 -Post Debridement (cm) - Width 3.0 -Post Debridement (cm) - Depth 0.1 -Total Square (Post) (cm) 5.40 -Area of Debridement (cm) - Length 1.8 -Area of Debridement (cm) - Width 3.0 -Total Square (Area) (cm) 5.40 -Tunneling No -Undermining/Tunneling No -Circular Undermining No -Wound/Ulcer Outcome Not Healed Healed- Epithelialized -Ulcer Cleansing Rinsed/ Irrigated with Saline -Foul Odor after Cleansing No -Bioengineered Tissue No -Bleeding Controlled with Pressure -Treatment Response Procedure Tolerated Well -Debridement - Subq, 1st 20sq cm No #8 Right Lat Foot -Time 14:24 14:25 -Correct Patient Yes Yes -Correct Side, Site, Position Yes Yes -Correct Procedure Yes Yes -Procedure Performed Yes Yes -Type of Procedure Debridement Debridement -Clinical Debridement Subcutaneous Subcutaneous -Tissue Removed Subcutaneous Subcutaneous -Post Debridement (cm) - Length 2.0 2.0 -Post Debridement (cm) - Width 1.4 1.4 -Post Debridement (cm) - Depth 0.1 0.1 -Total Square (Post) (cm) 2.80 2.80 -Area of Debridement (cm) - Length 2.0 2.0 -Area of Debridement (cm) - Width 1.4 1.4 -Total Square (Area) (cm) 2.80 2.80 -Tunneling No No -Undermining/Tunneling No No -Circular Undermining No No -Wound/Ulcer Outcome Not Healed Not Healed -Ulcer Cleansing Rinsed/ Rinsed/ Irrigated with Irrigated with Saline Saline -Foul Odor after Cleansing No No -Bioengineered Tissue No No -Bleeding Controlled with Pressure Pressure -Treatment Response Procedure Procedure Tolerated Well Tolerated Well -Debridement - Subq, 20sq cm No No #7 Right 1st Toe -Time 14:24 14:25 -Correct Patient Yes Yes -Correct Side, Site, Position Yes Yes -Correct Procedure Yes Yes -Procedure Performed Yes Yes -Type of Procedure Debridement Debridement -Clinical Debridement Subcutaneous Subcutaneous -Tissue Removed Subcutaneous Subcutaneous -Post Debridement (cm) - Length 1.0 0.5 -Post Debridement (cm) - Width 2.0 1.5 -Post Debridement (cm) - Depth 0.1 0.1 -Total Square (Post) (cm) 2.00 0.75 -Area of Debridement (cm) - Length 1.0 0.5 -Area of Debridement (cm) - Width 2.0 1.5 -Total Square (Area) (cm) 2.00 0.75 -Tunneling No No -Undermining/Tunneling No No -Circular Undermining No No -Wound/Ulcer Outcome Not Healed Not Healed -Ulcer Cleansing Rinsed/ Rinsed/ Irrigated with Irrigated with Saline Saline -Foul Odor after Cleansing No No -Bioengineered Tissue No -Bleeding Controlled with Pressure Pressure -Treatment Response Procedure Procedure Tolerated Well Tolerated Well -Debridement - Subq, 20sq cm No No #6 R Dorsal -Time 14:24 14:25 -Correct Patient Yes Yes -Correct Side, Site, Position Yes Yes -Correct Procedure Yes Yes -Procedure Performed Yes Yes -Type of Procedure Debridement Debridement -Clinical Debridement Subcutaneous Subcutaneous -Tissue Removed Subcutaneous Subcutaneous -Post Debridement (cm) - Length 1.5 1.2 -Post Debridement (cm) - Width 1.4 1.0 -Post Debridement (cm) - Depth 0.1 0.1 -Total Square (Post) (cm) 2.10 1.20 -Area of Debridement (cm) - Length 1.5 1.2 -Area of Debridement (cm) - Width 1.4 1.0 -Total Square (Area) (cm) 2.10 1.20 -Tunneling No No -Undermining/Tunneling No No -Circular Undermining No No -Wound/Ulcer Outcome Not Healed Not Healed -Ulcer Cleansing Rinsed/ Rinsed/ Irrigated with Irrigated with Saline Saline -Foul Odor after Cleansing No No -Bioengineered Tissue No No -Bleeding Controlled with Pressure Pressure -Treatment Response Procedure Procedure Tolerated Well Tolerated Well -Debridement - Subq, 1st 20sq cm No No #5 L wrist -Time 13:35 14:24 14:25 -Correct Patient Yes Yes Yes -Correct Side, Site, Position Yes Yes Yes -Correct Procedure Yes Yes Yes -Procedure Performed Yes Yes Yes -Type of Procedure Debridement Debridement Debridement -Clinical Debridement Subcutaneous Subcutaneous Subcutaneous -Tissue Removed Subcutaneous Subcutaneous Subcutaneous -Post Debridement (cm) - Length 1.2 0.9 0.4 -Post Debridement (cm) - Width 3.8 2.1 1.6 -Post Debridement (cm) - Depth 0.7 0.4 0.1 -Total Square (Post) (cm) 4.56 1.89 0.64 -Area of Debridement (cm) - Length 1.2 0.9 0.4 -Area of Debridement (cm) - Width 3.8 2.1 1.6 -Total Square (Area) (cm) 4.56 1.89 0.64 -Tunneling No No No -Undermining/Tunneling No No No -Circular Undermining No No No -Wound/Ulcer Outcome Not Healed Not Healed Not Healed -Ulcer Cleansing Rinsed/ Rinsed/ Rinsed/ Irrigated with Irrigated with Irrigated with Saline Saline Saline -Foul Odor after Cleansing No No No -Bioengineered Tissue No No No -Bleeding Controlled with Pressure Pressure Pressure -Treatment Response Procedure Procedure Procedure Tolerated Well Tolerated Well Tolerated Well -Debridement - Subq, 1st 20sq cm Yes No No -Debridement, SubQ, ea addt'l 20sq cm 2 or part thereof Pain Scale: 0-10 Numeric Is Patient Pain Free? Yes Yes Yes 04/30/22 05/07/22 15:00 10:45 Wound Center Nurse 2 #10 Left Dorsal -Time 14:01 -Correct Patient Yes -Correct Side, Site, Position Yes -Correct Procedure Yes -Procedure Performed Yes No -Type of Procedure Debridement -Clinical Debridement Subcutaneous -Tissue Removed Subcutaneous -Post Debridement (cm) - Length 0.5 -Post Debridement (cm) - Width 0.5 -Post Debridement (cm) - Depth 0.1 -Total Square (Post) (cm) 0.25 -Area of Debridement (cm) - Length 0.5 -Area of Debridement (cm) - Width 0.5 -Total Square (Area) (cm) 0.25 -Tunneling No -Undermining/Tunneling No -Circular Undermining No -Wound/Ulcer Outcome Not Healed Healed- Epithelialized -Ulcer Cleansing Rinsed/ Irrigated with Saline -Foul Odor after Cleansing No -Bioengineered Tissue No -Bleeding Controlled with Pressure -Treatment Response Procedure Tolerated Well -Debridement - Subq, 1st 20sq cm No #9 Right Achilles -Time 14:01 -Correct Patient Yes -Correct Side, Site, Position Yes -Correct Procedure Yes -Procedure Performed Yes -Type of Procedure Debridement -Clinical Debridement Subcutaneous -Tissue Removed Subcutaneous -Post Debridement (cm) - Length 0.3 -Post Debridement (cm) - Width 0.4 -Post Debridement (cm) - Depth 0.1 -Total Square (Post) (cm) 0.12 -Area of Debridement (cm) - Length 0.3 -Area of Debridement (cm) - Width 0.4 -Total Square (Area) (cm) 0.12 -Tunneling No -Undermining/Tunneling No -Circular Undermining No -Wound/Ulcer Outcome Not Healed -Ulcer Cleansing Rinsed/ Irrigated with Saline -Foul Odor after Cleansing No -Bioengineered Tissue No -Bleeding Controlled with Pressure -Treatment Response Procedure Tolerated Well -Debridement - Subq, 1st 20sq cm No -Debridement, SubQ, ea addt'l 20sq cm or part thereof #4 L ankle -Time -Correct Patient -Correct Side, Site, Position -Correct Procedure -Procedure Performed -Type of Procedure -Clinical Debridement -Tissue Removed -Post Debridement (cm) - Length -Post Debridement (cm) - Width -Post Debridement (cm) - Depth -Total Square (Post) (cm) -Area of Debridement (cm) - Length -Area of Debridement (cm) - Width -Total Square (Area) (cm) -Tunneling -Undermining/Tunneling -Circular Undermining -Wound/Ulcer Outcome -Ulcer Cleansing -Foul Odor after Cleansing -Bioengineered Tissue -Bleeding Controlled with -Treatment Response -Debridement - Subq, 1st 20sq cm #3 R Ant Ankle -Time 14:01 -Correct Patient Yes -Correct Side, Site, Position Yes -Correct Procedure Yes -Procedure Performed Yes -Type of Procedure Debridement -Clinical Debridement Subcutaneous -Tissue Removed Subcutaneous -Post Debridement (cm) - Length 1.4 -Post Debridement (cm) - Width 0.2 -Post Debridement (cm) - Depth 0.1 -Total Square (Post) (cm) 0.28 -Area of Debridement (cm) - Length 1.4 -Area of Debridement (cm) - Width 0.2 -Total Square (Area) (cm) 0.28 -Tunneling No -Undermining/Tunneling No -Circular Undermining No -Wound/Ulcer Outcome Not Healed -Ulcer Cleansing Rinsed/ Irrigated with Saline -Foul Odor after Cleansing No -Bioengineered Tissue No -Bleeding Controlled with Pressure -Treatment Response Procedure Tolerated Well -Debridement - Subq, 1st 20sq cm Yes #2 R ankle cluster -Time -Correct Patient -Correct Side, Site, Position -Correct Procedure -Procedure Performed -Type of Procedure -Clinical Debridement -Tissue Removed -Post Debridement (cm) - Length -Post Debridement (cm) - Width -Post Debridement (cm) - Depth -Total Square (Post) (cm) -Area of Debridement (cm) - Length -Area of Debridement (cm) - Width -Total Square (Area) (cm) -Tunneling -Undermining/Tunneling -Circular Undermining -Wound/Ulcer Outcome -Ulcer Cleansing -Foul Odor after Cleansing -Bioengineered Tissue -Bleeding Controlled with -Treatment Response -Debridement - Subq, 1st 20sq cm #8 Right Lat Foot -Time 14:01 -Correct Patient Yes -Correct Side, Site, Position Yes -Correct Procedure Yes -Procedure Performed Yes -Type of Procedure Debridement -Clinical Debridement Subcutaneous -Tissue Removed Subcutaneous -Post Debridement (cm) - Length 1.2 -Post Debridement (cm) - Width 1.0 -Post Debridement (cm) - Depth 0.1 -Total Square (Post) (cm) 1.20 -Area of Debridement (cm) - Length 1.2 -Area of Debridement (cm) - Width 1.0 -Total Square (Area) (cm) 1.20 -Tunneling No -Undermining/Tunneling No -Circular Undermining No -Wound/Ulcer Outcome Not Healed -Ulcer Cleansing Rinsed/ Irrigated with Saline -Foul Odor after Cleansing No -Bioengineered Tissue No -Bleeding Controlled with Pressure -Treatment Response Procedure Tolerated Well -Debridement - Subq, 1st 20sq cm No #7 Right 1st Toe -Time 14:01 -Correct Patient Yes -Correct Side, Site, Position Yes -Correct Procedure Yes -Procedure Performed Yes -Type of Procedure Debridement -Clinical Debridement Subcutaneous -Tissue Removed Subcutaneous -Post Debridement (cm) - Length 0.5 -Post Debridement (cm) - Width 0.6 -Post Debridement (cm) - Depth 0.1 -Total Square (Post) (cm) 0.30 -Area of Debridement (cm) - Length 0.5 -Area of Debridement (cm) - Width 0.6 -Total Square (Area) (cm) 0.30 -Tunneling No -Undermining/Tunneling No -Circular Undermining No -Wound/Ulcer Outcome Not Healed -Ulcer Cleansing Rinsed/ Irrigated with Saline -Foul Odor after Cleansing No -Bioengineered Tissue No -Bleeding Controlled with Pressure -Treatment Response Procedure Tolerated Well -Debridement - Subq, 1st 20sq cm No #6 R Dorsal -Time 14:01 -Correct Patient Yes -Correct Side, Site, Position Yes -Correct Procedure Yes -Procedure Performed Yes -Type of Procedure Debridement -Clinical Debridement Subcutaneous -Tissue Removed Subcutaneous -Post Debridement (cm) - Length 0.4 -Post Debridement (cm) - Width 0.5 -Post Debridement (cm) - Depth 0.1 -Total Square (Post) (cm) 0.20 -Area of Debridement (cm) - Length 0.4 -Area of Debridement (cm) - Width 0.5 -Total Square (Area) (cm) 0.20 -Tunneling No -Undermining/Tunneling No -Circular Undermining No -Wound/Ulcer Outcome Not Healed -Ulcer Cleansing Rinsed/ Irrigated with Saline -Foul Odor after Cleansing No -Bioengineered Tissue No -Bleeding Controlled with Pressure -Treatment Response Procedure Tolerated Well -Debridement - Subq, 1st 20sq cm No #5 L wrist -Time 14:01 -Correct Patient Yes -Correct Side, Site, Position Yes -Correct Procedure Yes -Procedure Performed Yes -Type of Procedure Debridement -Clinical Debridement Subcutaneous -Tissue Removed Subcutaneous -Post Debridement (cm) - Length 0.3 -Post Debridement (cm) - Width 0.5 -Post Debridement (cm) - Depth 0.1 -Total Square (Post) (cm) 0.15 -Area of Debridement (cm) - Length 0.3 -Area of Debridement (cm) - Width 0.5 -Total Square (Area) (cm) 0.15 -Tunneling No -Undermining/Tunneling No -Circular Undermining No -Wound/Ulcer Outcome Not Healed -Ulcer Cleansing Rinsed/ Irrigated with Saline -Foul Odor after Cleansing No -Bioengineered Tissue No -Bleeding Controlled with Pressure -Treatment Response Procedure Tolerated Well -Debridement - Subq, 1st 20sq cm No -Debridement, SubQ, ea addt'l 20sq cm or part thereof Pain Scale: 0-10 Numeric Is Patient Pain Free? Yes Yes WC - Nurse 3 - General Ulcer D/C NN Start: 04/09/22 13:29 Freq: Status: Active Protocol: Activity Type Activity Date Activity User E-sign Co-sign Detail Recorded Client Recorded Date Recorded By Document 04/09/22 15:05 [place] [id number] 04/09/22 15:16 [place] Document 04/16/22 14:59 [place] [id number] 04/16/22 15:01 AK Document 04/23/22 14:53 [facility] [id number] 04/23/22 14:57 BM Document 04/30/22 15:04 [place] [id number] 04/30/22 15:07 [place] Document 05/07/22 11:08 [facility] [id number] 05/07/22 11:09 [facility] 04/09/22 04/16/22 04/23/22 15:05 14:59 14:53 Wound Care Center Nurse 3 #10 Left Dorsal -Ulcer Cleansing -Foul Odor after Cleansing -Negative Pressure Wound Therapy -Other Dressing -Primary Dressing Covered/Secured with #9 Right Achilles -Ulcer Cleansing Rinsed/ Irrigated with Saline -Foul Odor after Cleansing No -Other Dressing SANTYL -Primary Dressing Covered/Secured with Dry Gauze & Roll Gauze, Secured with Tape -Other Covering DRSG PER [place] RN #4 L ankle -Ulcer Cleansing Soap and Water Rinsed/ Rinsed/ Irrigated with Irrigated with Saline Saline -Foul Odor after Cleansing No No -Negative Pressure Wound Therapy N/A -Other Dressing santyl ordered. hydrogel SANTYL hydrogel placed today on wounds. -Primary Dressing Covered/Secured with Dry Gauze & Dry Gauze & Dry Gauze & Roll Gauze, Roll Gauze, Roll Gauze, Secured with Secured with Secured with Tape Tape Tape -Other Covering DRSG PER MT RN #3 R Ant Ankle -Ulcer Cleansing Soap and Water Rinsed/ Rinsed/ Irrigated with Irrigated with Saline Saline -Foul Odor after Cleansing No No -Negative Pressure Wound Therapy N/A -Other Dressing hydrogel SANTYL -Primary Dressing Covered/Secured with Dry Gauze & Dry Gauze & Dry Gauze & Roll Gauze, Roll Gauze, Roll Gauze, Secured with Secured with Secured with Tape Tape Tape -Other Covering DRSG PER [place] RN #2 R ankle cluster -Ulcer Cleansing Soap and Water Rinsed/ Rinsed/ Irrigated with Irrigated with Saline Saline -Foul Odor after Cleansing No No -Negative Pressure Wound Therapy N/A -Other Dressing hydrogel SANTYL -Primary Dressing Covered/Secured with Dry Gauze & Dry Gauze & Dry Gauze & Roll Gauze, Roll Gauze, Roll Gauze, Secured with Secured with Secured with Tape Tape Tape -Other Covering DRSG PER [place] RN #1 R lateral foot -Ulcer Cleansing Soap and Water -Primary Dressing Covered/Secured with Dry Gauze & Roll Gauze, Secured with Tape #8 Right Lat Foot -Ulcer Cleansing Rinsed/ Irrigated with Saline -Foul Odor after Cleansing No -Primary Dressing Applied -Other Dressing SANTYL -Primary Dressing Covered/Secured with Dry Gauze & Roll Gauze, Secured with Tape -Other Covering DRSG PER [place] RN -Promogran #7 Right 1st Toe -Ulcer Cleansing Rinsed/ Irrigated with Saline -Foul Odor after Cleansing No -Negative Pressure Wound Therapy -Primary Dressing Applied -Other Dressing SANTYL -Primary Dressing Covered/Secured with Dry Gauze & Roll Gauze, Secured with Tape -Other Covering DRSG PER [place] RN -Promogran #6 R Dorsal -Ulcer Cleansing Rinsed/ Irrigated with Saline -Foul Odor after Cleansing No -Negative Pressure Wound Therapy -Primary Dressing Applied -Other Dressing SANTYL -Primary Dressing Covered/Secured with Dry Gauze & Roll Gauze, Secured with Tape -Other Covering DRSG PER [place] -Promogran #5 L wrist -Ulcer Cleansing Rinsed/ Rinsed/ Irrigated with Irrigated with Saline Saline -Foul Odor after Cleansing No No -Negative Pressure Wound Therapy N/A -Primary Dressing [facility] Prom[facility] C Hydrogel ($) Marcela Matter Marcela Matter, Mepilex Border -Other Dressing DRSG PER [place] RN -Primary Dressing Covered/Secured with Dry Gauze & Dry Gauze & Roll Gauze, Roll Gauze, Secured with Secured with Tape Tape -Other Covering -Mepilex Border 1 -Promogran Marcela Matter 1 1 Right -Lotion applied to leg before No compression wrap -Tubular Bandage Single Layer Single Layer Single Layer -Size of Tubigrip Used Size D Size E Size D -Size D ($) 1 1 -Size E ($) 1 Left -Tubular Bandage Single Layer Single Layer Single Layer -Size of Tubigrip Used Size D Size E Size D -Size D ($) 1 1 -Size E ($) 1 Pain Scale: 0-10 Numeric Is Patient Pain Free? Yes Yes Yes WC - Visit Discharge Discharge Condition Stable Stable Ambulatory Status Ambulatory Ambulatory Transportation Private Auto Private Auto Medication Reconcilliation completed & Yes provided to patient/care provider Clinical Summary of Care Provided Yes 04/30/22 05/07/22 15:04 11:08 Wound Care Center Nurse 3 #10 Left Dorsal -Ulcer Cleansing Rinsed/ Irrigated with Saline -Foul Odor after Cleansing No -Negative Pressure Wound Therapy N/A -Other Dressing own santyl and bandaid -Primary Dressing Covered/Secured with Dry Gauze #9 Right Achilles -Ulcer Cleansing Rinsed/ Irrigated with Saline -Foul Odor after Cleansing -Other Dressing own santyl and bandaid -Primary Dressing Covered/Secured with -Other Covering #4 L ankle -Ulcer Cleansing -Foul Odor after Cleansing -Negative Pressure Wound Therapy -Other Dressing -Primary Dressing Covered/Secured with -Other Covering #3 R Ant Ankle -Ulcer Cleansing Rinsed/ Irrigated with Saline -Foul Odor after Cleansing No -Negative Pressure Wound Therapy N/A -Other Dressing own santyl and bandaid -Primary Dressing Covered/Secured with Dry Gauze -Other Covering #2 R ankle cluster -Ulcer Cleansing -Foul Odor after Cleansing -Negative Pressure Wound Therapy -Other Dressing -Primary Dressing Covered/Secured with -Other Covering #1 R lateral foot -Ulcer Cleansing -Primary Dressing Covered/Secured with #8 Right Lat Foot -Ulcer Cleansing Rinsed/ Rinsed/ Irrigated with Irrigated with Saline Saline -Foul Odor after Cleansing No -Primary Dressing Applied Promogran -Other Dressing -Primary Dressing Covered/Secured with Dry Gauze Dry Gauze & Roll Gauze, Secured with Tape -Other Covering own santyl and bandaid -Promogran 1 #7 Right 1st Toe -Ulcer Cleansing Rinsed/ Rinsed/ Irrigated with Irrigated with Saline Saline -Foul Odor after Cleansing No No -Negative Pressure Wound Therapy N/A -Primary Dressing Applied Promogran -Other Dressing own santyl and bandaid -Primary Dressing Covered/Secured with Dry Gauze Dry Gauze & Roll Gauze, Secured with Tape -Other Covering -Promogran 0 #6 R Dorsal -Ulcer Cleansing Rinsed/ Rinsed/ Irrigated with Irrigated with Saline Saline -Foul Odor after Cleansing No No -Negative Pressure Wound Therapy N/A -Primary Dressing Applied Promogran -Other Dressing own santyl and bandaid -Primary Dressing Covered/Secured with Dry Gauze Dry Gauze & Roll Gauze, Secured with Tape -Other Covering -Promogran 0 #5 L wrist -Ulcer Cleansing Rinsed/ Rinsed/ Irrigated with Irrigated with Saline Saline -Foul Odor after Cleansing No No -Negative Pressure Wound Therapy N/A -Primary Dressing Applied C Hydrogel ($) -Other Dressing -Primary Dressing Covered/Secured with Other -Other Covering hydrogel/ bandaid bandaid -Mepilex Border -Promogran Marcela Matter Right -Lotion applied to leg before compression wrap -Tubular Bandage Single Layer -Size of Tubigrip Used Size D -Size D ($) 0 -Size E ($) Left -Tubular Bandage -Size of Tubigrip Used -Size D ($) -Size E ($) Pain Scale: 0-10 Numeric Is Patient Pain Free? Yes Yes WC - Visit Discharge Discharge Condition Stable Ambulatory Status Ambulatory Transportation Private Auto Medication Reconcilliation completed & Yes provided to patient/care provider Clinical Summary of Care Provided Yes Additional Wound Wound debrided: R ankle Laterality: Right Type of Debridement: Excisional debridement Anesthesia Used: 5% Lidocaine Gel and Cetacaine Depth: Down to and including healthy tissue and in the subcutaneous layer Percentage of wound debrided: 100 Instrument Used: 5mm curette, #10 blade and Forceps Tissue Removed: adherent slough/scab, devitalized tissue Severity: Fat Layer Exposed Amount of bleeding with debridement: Mild Bleeding Controlled with: Pressure Patient tolerated procedure: Patient tolerated procedure well Additional Wound Wound debrided: R dorsal foot Laterality: Right Type of Debridement: Excisional debridement Anesthesia Used: 5% Lidocaine Gel and Cetacaine Depth: Down to and including healthy tissue and in the subcutaneous layer Percentage of wound debrided: 100 Instrument Used: 5mm curette Tissue Removed: adherent slough/scab, devitalized tissue Severity: Fat Layer Exposed Amount of bleeding with debridement: Mild Bleeding Controlled with: Pressure Patient tolerated procedure: Patient tolerated procedure well Additional Wound Wound debrided: L wrist Laterality: Left Type of Debridement: Excisional debridement Anesthesia Used: 5% Lidocaine Gel and Cetacaine Depth: Down to and including healthy tissue and in the subcutaneous layer Percentage of wound debrided: 100 Instrument Used: 5mm curette Tissue Removed: adherent slough/scab, devitalized tissue Severity: Fat Layer Exposed Amount of bleeding with debridement: Mild Bleeding Controlled with: Pressure Patient tolerated procedure: Patient tolerated procedure well Additional Wound Wound debrided: R great toe Laterality: Right Type of Debridement: Excisional debridement Anesthesia Used: 5% Lidocaine Gel Depth: Down to and including healthy tissue Instrument Used: 5mm curette Tissue Removed: slough, devitalized tissue Bleeding Controlled with: Pressure Patient tolerated procedure: Patient tolerated procedure well Assessment/Plan Assessment/Plan (1) 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 RLE and L wrist wound with improved size from last week. All wound bases had pink granulation tissue and good bleeding. Will apply promogran to RLE wounds, cover with adaptic and kerlix, tubigrips forcompression. Collagen hydrogel to L wrist wound. Silicone-bordered dressing for secondary. Change dressings daily or more often as needed to keep clean and dry. Return to clinic in 1 week or sooner as needed. 05/07/22 1201 <Electronically signed by Tonia ACUNA> Cosigner Signature (if applicable): CC: ~ Signed [facility] Work Phone: [phone] Procedure [facility] 04-30-2022 Progress note Author Tonia Jenkins [facility] April 30, 2022 2:55pm Note Date/Time April 30, 2022 2:3 8pm [facility] [address] [place] [address] Progress Note - Wound Care 04/30/22 1435 MR#: [id number] Acct: [id number] Name: ABELARDO IVROY Rep #:[id number] 17 : 1950 72 From: Tonia ACUNA PCP: Dr. Ezekiel Carrasco MD Status: REG R Location: History of Present Illness Date of Service: 04/30/22 Chief Complaint: Left wrist wound Multiple bilateral lower extremity wounds History of Wound: Patient is new to [facility] but known to me from the vascular surgery clinic. 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 Patient was understandably quite ill following this and hospitalized for some time during which he had significant BLE edema at which point the wounds began to appear. They were overall stable for some time, and then he was hospitalized a few weeks ago for pneumonia, had increased BLE edema again, and wounds worsened/new ones appeared. Since then, he feels they are improved in appearance. The wrist wound appeared during the initial hospitalization for AAA, at that time he describes it initially as a hematoma which eventually developed into this chronic wound. Last week, he had significant erythema and pain in his RLE and was started on antibiotics. Venous duplex was also obtained to r/o DVT and this was negative. Erythema did improve with antibiotics. Patient still has pain in bilateral feet,worse right than left; bilateral feet/ankles are intermittently hypersensitive to touch. He notes continued mild BLE edema. He does not currently wear compression. Subjective Subjective Paitent has been applying Santyl and changing dressings for his BLE wounds as directed. He has been applying hydrogel to L wrist wound as directed. No new/worsening pain, erythema, swelling, drainage, foul odor, F/C, N/V. Objective Data Objective Data Vital Signs: Vital Signs Temp Pulse Resp BP O2 Del Method O2 Flow Rate 96.8 F L 83 16 141/74 H Room Air 2 04/30/22 13:54 04/30/22 13:54 04/23/22 14:03 04/30/22 13:54 04/23/22 14:03 04/16/22 14:11 Oxygen Flow Rate (L/min) 2 Oxygen Delivery Method Room Air Charges/Coding Wound Center CF Procedures [id number]: 65160 RMVL DEVITAL TIS 20 CM/< Multi Select Codes Wound Center CF Procedures [id number]: 25663 RMVL DEVITAL TIS 20 CM/< Physical Exam Const alert, oriented x3 and no apparent distress General Appearance: cooperative, comfortable and well developed HEENT normocephalic, head/scalp atraumatic, hearing grossly normal bilaterally, external ears normal and external nose normal Eyes EOMs intact bilaterally General Eye: normal appearance of both eyes Neck full ROM General: normal visual inspection and trachea midline Resp normal respiratory effort, no retractions and no use of accessory muscles Effort and Inspection: able to speak in complete sentences and symmetric chest movement Cardio regular rate and regular rhythm Peripheral Pulses: brachial pulses present and radial pulses present Extremity Extremity Narrative: Mild bilateral lower extremity edema, right worse than left. Patient had sensitivity to light touch, especially on R foot. Skin Wounds: wounds noted Wound Narrative: Multiple bilateral ankle/foot wounds. All with improved appearance. A few more have healed since last week. Naomi, granulation tissue at the wound beds. Good bleeding. No significant erythema, foul odor, drainage noted. Left wrist wound with pink granulation tissue at base, minimal slough. Significantly decreased in size from last week. 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: R cherry sorter lower leg Laterality: Right Type of Debridement: Excisional debridement Anesthesia Used: 5% Lidocaine Gel and Cetacaine Depth: Down to and including healthy tissue and in the subcutaneous layer Percentage of wound debrided: 100 Instrument Used: 5mm curette Tissue Removed: adherent slough/scab, devitalized tissue Severity: Fat Layer Exposed Amount of bleeding with debridement: Mild Bleeding Controlled with: Pressure Patient tolerated procedure: Patient tolerated procedure well Post-Debridement Measurements and Additional Note: Post-Debridement Measurements/Treatment WC - Nurse 1 - General Ulcer Assessment Start: 04/09/22 13:29 Freq: Status: Active Protocol: WC.LOWEXT Activity Type Activity Date Activity User E-sign Co-sign Detail Recorded Client Recorded Date Recorded By Document 04/09/22 13:30 AK [id number] 04/09/22 13:42 AK Document 04/16/22 14:11 MD [id number] 04/16/22 14:21 AK Document 04/23/22 14:03 [place] [id number] 04/23/22 14:17 [place] Document 04/30/22 13:54 AK [id number] 04/30/22 14:09 AK 04/09/22 04/16/22 04/23/22 13:30 14:11 14:03 - Today's Visit Information Type of service Initial Visit Follow-up Visit Follow-up Visit (Physician/MECHANIC (Physician/MECHANIC ) ) Arrival Mode Ambulatory Ambulatory Ambulatory Transfer Assistance None None Patient Identification Verified (Name & Yes Yes Yes ) Patient Requires Transmission-Based No No No Precautions Safety Precautions NA Finger Stick Blood Sugar(mg/dl) (if 149 indicated): Blood Sugar Stated by Patient Vital Signs Temperature (97.8 F-99.1 F) 97.2 F L 97 F L Temperature Source Temporal Temporal Pulse Rate (60-100) 58 L 74 Pulse Location Monitor Monitor Respiratory Rate (12-18) 18 16 Respiratory rate source Observation Observation Oxygen Delivery Method Nasal Cannula Room Air O2 L/MIN (L/min) 2 Blood Pressure (90/60-120/80) 155/78 H 149/72 H Blood Pressure Mean (mm Hg) 103 97 Source Monitor Monitor Position Sitting Sitting Blood Pressure Location Right Arm Right Arm History Since Last Visit- (Skip if this is Patient's initial visit) Have you changed medications since your No No last visit? Any new allergies or adverse reactions No No Had a fall/change in ADL's that may No No increase risk of falls Signs or symptoms of abuse and/or No No neglect since last visit Have you been in the hospital since your No No last visit? Has dressing in place as prescribed Yes Yes Has compression in place as prescribed No No Has offloadiing in place as prescribed No N/A Experienced any changes in pain level or No No management Left Footwear Regular Shoe Regular Shoe Right Footwear Regular Shoe Regular Shoe Pain Scale: 0-10 Numeric Is Patient Pain Free? No Yes Yes 04/30/22 13:54 - Today's Visit Information Type of service Follow-up Visit (Physician/MECHANIC ) Arrival Mode Ambulatory Transfer Assistance Patient Identification Verified (Name & Yes ) Patient Requires Transmission-Based No Precautions Safety Precautions NA Finger Stick Blood Sugar(mg/dl) (if indicated): Blood Sugar Vital Signs Temperature (97.8 F-99.1 F) 96.8 F L Temperature Source Temporal Pulse Rate (60-100) 83 Pulse Location Monitor Respiratory Rate (12-18) Respiratory rate source Oxygen Delivery Method O2 L/MIN (L/min) Blood Pressure (90/60-120/80) 141/74 H Blood Pressure Mean (mm Hg) 96 Source Monitor Position Blood Pressure Location History Since Last Visit- (Skip if this is Patient's initial visit) Have you changed medications since your No last visit? Any new allergies or adverse reactions No Had a fall/change in ADL's that may No increase risk of falls Signs or symptoms of abuse and/or No neglect since last visit Have you been in the hospital since your No last visit? Has dressing in place as prescribed Yes Has compression in place as prescribed N/A Has offloadiing in place as prescribed N/A Experienced any changes in pain level or No management Left Footwear Regular Shoe Right Footwear Regular Shoe Pain Scale: 0-10 Numeric Is Patient Pain Free? Yes - Nurse 1 - General Ulcer Measurement Start: 04/09/22 13:29 Freq: Status: Active Protocol: Activity Type Activity Date Activity User E-sign Co-sign Detail Recorded Client Recorded Date Recorded By Document 04/09/22 13:30 MD [id number] 04/09/22 13:42 MD Document 04/16/22 14:11 MD [id number] 04/16/22 14:21 MD Document 04/23/22 14:03 [place] [id number] 04/23/22 14:17 [place] Document 04/30/22 13:54 MD [id number] 04/30/22 14:09 MD 04/09/22 04/16/22 04/23/22 13:30 14:11 14:03 Wound Center Nurse 1 #4 L ankle -Combined with other wound No No No -Current Size (cm) - Length 4 2 0.7 -Current Size (cm) - Width 4.8 1.1 1 -Current Size (cm) - Depth 0.1 0.1 0.1 -Total Square Cm 19.2 2.2 0.7 -Date of Last Picture (Recall this 04/23/22 field) -Photo Taken Yes Yes Yes -Epithelialization None Present -Tunneling No No No -Undermining/Tunneling No No No -Circular Undermining No No No -Change in Wound Grade/Stage No -Exudate Amt None Present Medium Small -Exudate Type Serosanguineous Serosanguineous -Wound Margin Distinct, Distinct, Distinct, Outline Outline Outline Attached Attached Attached -Granulation Amt None Present (0 Medium (34-66%) Medium (34-66%) %) -Granulation Quality N/A Naomi Red -Slough/Fibrin Yes Yes Yes -Necrosis Amt Large (67-100%) Medium (34-66%) Medium (34-66%) -Necrotic Tissue Type Eschar Adherent Slough Adherent Slough -Structure Exposed N/A N/A -Texture (Kirstie-wound Skin Appearance) Assessed Assessed Assessed, Scarring -Moisture (Kirstie-wound Skin Appearance) Assessed,Dry/ Assessed,Dry/ Assessed Scaly Scaly -Color (Kirstie-wound Skin Appearance) No Abnormality, Assessed Assessed Not Assessed -Temperature (Kirstie-wound Skin No Abnormality No Abnormality No Abnormality Appearance) (Pt Warm) (Pt Warm) (Pt Warm) -Tenderness on Palpation (Kirstie-wound No No No Skin Appearance) -Ulcer Cleansing Rinsed/ Wound Cleanser Soap and Water Irrigated with Saline -Foul Odor after Cleansing No No No -Anesthetic Used 4% Lidocaine 5% Lidocaine 5% Lidocaine Solution,5% Gel Gel Lidocaine Gel -Wound Comment(s) scabbed #2 R ankle cluster -Combined with other wound No No No -Current Size (cm) - Length 6.5 6.5 2 -Current Size (cm) - Width 5 14 1.1 -Current Size (cm) - Depth 0.1 0.1 0.1 -Total Square Cm 32.5 91.0 2.2 -Date of Last Picture (Recall this 04/09/22 04/23/22 field) -Photo Taken Yes Yes -Epithelialization None Present -Tunneling No No No -Undermining/Tunneling No No No -Circular Undermining No No No -Change in Wound Grade/Stage No -Exudate Amt None Present Medium Small -Exudate Type Serosanguineous Serosanguineous -Wound Margin Distinct, Distinct, Outline Outline Attached Attached -Granulation Amt None Present (0 Medium (34-66%) None Present (0 %) %) -Granulation Quality N/A Naomi -Slough/Fibrin Yes Yes Yes -Necrosis Amt Large (67-100%) Large (67-100%) Large (67-100%) -Necrotic Tissue Type Eschar Adherent Slough Eschar -Structure Exposed N/A N/A -Texture (Kirstie-wound Skin Appearance) No Abnormality, Assessed Assessed, Assessed Scarring -Moisture (Kirstie-wound Skin Appearance) Assessed,Dry/ Dry/Scaly Assessed Scaly -Color (Kirstie-wound Skin Appearance) No Abnormality, Assessed Assessed Assessed -Temperature (Kirstie-wound Skin No Abnormality No Abnormality No Abnormality Appearance) (Pt Warm) (Pt Warm) (Pt Warm) -Tenderness on Palpation (Kirstie-wound No No No Skin Appearance) -Ulcer Cleansing Rinsed/ Wound Cleanser Soap and Water Irrigated with Saline -Foul Odor after Cleansing No No No -Anesthetic Used 4% Lidocaine 5% Lidocaine 5% Lidocaine Solution,5% Gel Gel Lidocaine Gel -Wound Comment(s) scabbed #1 R lateral foot -Combined with other wound No -Current Size (cm) - Length 2.2 -Current Size (cm) - Width 4.5 -Current Size (cm) - Depth 0.1 -Total Square Cm 9.90 -Date of Last Picture (Recall this 04/09/22 field) -Photo Taken Yes -Tunneling No -Undermining/Tunneling No -Circular Undermining No -Change in Wound Grade/Stage No -Exudate Amt None Present -Wound Margin Distinct, Outline Attached -Granulation Amt None Present (0 %) -Granulation Quality N/A -Slough/Fibrin No -Necrosis Amt Large (67-100%) -Necrotic Tissue Type Eschar -Structure Exposed N/A -Texture (Kirstie-wound Skin Appearance) No Abnormality, Assessed -Moisture (Kirstie-wound Skin Appearance) No Abnormality, Assessed -Color (Kirstie-wound Skin Appearance) No Abnormality, Assessed -Temperature (Kirstie-wound Skin No Abnormality Appearance) (Pt Warm) -Tenderness on Palpation (Kirstie-wound No Skin Appearance) -Ulcer Cleansing Rinsed/ Irrigated with Saline -Foul Odor after Cleansing No -Anesthetic Used 4% Lidocaine Solution,5% Lidocaine Gel -Wound Comment(s) scabbed #10 Left Dorsal -Combined with other wound -Current Size (cm) - Length -Current Size (cm) - Width -Current Size (cm) - Depth -Total Square Cm -Photo Taken -Tunneling -Undermining/Tunneling -Circular Undermining -Change in Wound Grade/Stage -Exudate Amt -Exudate Type -Wound Margin -Granulation Amt -Granulation Quality -Slough/Fibrin -Necrosis Amt -Necrotic Tissue Type -Structure Exposed -Texture (Kirstie-wound Skin Appearance) -Moisture (Kirstie-wound Skin Appearance) -Color (Kirstie-wound Skin Appearance) -Temperature (Kirstie-wound Skin Appearance) -Tenderness on Palpation (Kirstie-wound Skin Appearance) -Ulcer Cleansing -Foul Odor after Cleansing -Anesthetic Used #9 Right Achilles -Combined with other wound No -Current Size (cm) - Length 0 -Current Size (cm) - Width 0 -Current Size (cm) - Depth 0 -Total Square Cm 0 -Date of Last Picture (Recall this 04/23/22 field) -Photo Taken No -Epithelialization Large 67-100% -Tunneling -Undermining/Tunneling -Circular Undermining -Change in Wound Grade/Stage -Exudate Amt -Wound Margin -Granulation Amt -Granulation Quality -Slough/Fibrin -Necrosis Amt -Necrotic Tissue Type -Structure Exposed -Texture (Kirstie-wound Skin Appearance) -Moisture (Kirstie-wound Skin Appearance) -Color (Kirstie-wound Skin Appearance) -Temperature (Kirstie-wound Skin Appearance) -Tenderness on Palpation (Kirstie-wound Skin Appearance) -Ulcer Cleansing -Foul Odor after Cleansing -Anesthetic Used -Wound Comment(s) #8 Right Lat Foot -Combined with other wound No -Current Size (cm) - Length 0 -Current Size (cm) - Width 0 -Current Size (cm) - Depth 0 -Total Square Cm 0 -Date of Last Picture (Recall this 04/23/22 field) -Photo Taken Yes -Tunneling -Undermining/Tunneling -Circular Undermining -Change in Wound Grade/Stage -Exudate Amt -Exudate Type -Wound Margin -Granulation Amt -Granulation Quality -Slough/Fibrin -Necrosis Amt -Necrotic Tissue Type -Structure Exposed -Texture (Kirstie-wound Skin Appearance) -Moisture (Kirstie-wound Skin Appearance) -Color (Kirstie-wound Skin Appearance) -Temperature (Kirstie-wound Skin Appearance) -Tenderness on Palpation (Kirstie-wound Skin Appearance) -Ulcer Cleansing -Foul Odor after Cleansing -Anesthetic Used #7 Right 1st Toe -Combined with other wound No -Current Size (cm) - Length 0.1 -Current Size (cm) - Width 0.1 -Current Size (cm) - Depth 0.1 -Total Square Cm 0.01 -Date of Last Picture (Recall this 04/23/22 field) -Photo Taken Yes -Epithelialization Large 67-100% -Tunneling -Undermining/Tunneling -Circular Undermining -Change in Wound Grade/Stage -Exudate Amt -Wound Margin -Granulation Amt -Granulation Quality -Slough/Fibrin -Necrosis Amt -Necrotic Tissue Type -Structure Exposed -Texture (Kirstie-wound Skin Appearance) -Moisture (Kirstie-wound Skin Appearance) -Color (Kirstie-wound Skin Appearance) -Temperature (Kirstie-wound Skin Appearance) -Tenderness on Palpation (Kirstie-wound Skin Appearance) -Ulcer Cleansing -Foul Odor after Cleansing -Anesthetic Used #6 R Dorsal -Combined with other wound No -Combined with (Name of Wound-Exactly as it is documented) -Current Size (cm) - Length 6.5 -Current Size (cm) - Width 2.5 -Current Size (cm) - Depth 0.1 -Total Square Cm 16.25 -Date of Last Picture (Recall this 04/23/22 field) -Photo Taken Yes -Epithelialization Small 1-33% -Tunneling No -Undermining/Tunneling No -Circular Undermining No -Exudate Amt Small -Exudate Type Serosanguineous -Wound Margin Distinct, Outline Attached -Granulation Amt Medium (34-66%) -Granulation Quality Red -Slough/Fibrin Yes -Necrosis Amt Medium (34-66%) -Necrotic Tissue Type Adherent Slough -Texture (Kirstie-wound Skin Appearance) Assessed, Scarring -Moisture (Kirstie-wound Skin Appearance) Assessed -Color (Kirstie-wound Skin Appearance) Assessed -Temperature (Kirstie-wound Skin No Abnormality Appearance) (Pt Warm) -Tenderness on Palpation (Kirstie-wound No Skin Appearance) -Ulcer Cleansing Soap and Water -Foul Odor after Cleansing No -Anesthetic Used 5% Lidocaine Gel #5 L wrist -Combined with other wound No No No -Current Size (cm) - Length 1.1 0.5 0.4 -Current Size (cm) - Width 3.2 2.1 1.6 -Current Size (cm) - Depth 0.1 0.3 0.1 -Total Square Cm 3.52 1.05 0.64 -Date of Last Picture (Recall this 04/23/22 field) -Photo Taken Yes Yes Yes -Epithelialization None Present -Tunneling No No No -Undermining/Tunneling No No No -Circular Undermining No No No -Change in Wound Grade/Stage No -Exudate Amt None Present Medium Small -Exudate Type Serosanguineous Serosanguineous -Wound Margin Distinct, Distinct, Distinct, Outline Outline Outline Attached Attached Attached -Granulation Amt None Present (0 Medium (34-66%) None Present (0 %) %) -Granulation Quality Naomi -Slough/Fibrin Yes Yes Yes -Necrosis Amt Large (67-100%) Large (67-100%) Large (67-100%) -Necrotic Tissue Type Adherent Slough Adherent Slough Adherent Slough -Structure Exposed N/A N/A -Texture (Kirstie-wound Skin Appearance) No Abnormality, Assessed Assessed, Assessed Scarring -Moisture (Kirstie-wound Skin Appearance) Assessed,Dry/ Dry/Scaly Assessed Scaly -Color (Kirstie-wound Skin Appearance) No Abnormality, Assessed Assessed Assessed -Temperature (Kirstie-wound Skin No Abnormality No Abnormality No Abnormality Appearance) (Pt Warm) (Pt Warm) (Pt Warm) -Tenderness on Palpation (Kirstie-wound No No No Skin Appearance) -Ulcer Cleansing Rinsed/ Wound Cleanser Soap and Water Irrigated with Saline -Foul Odor after Cleansing No No Yes, Due to Product Use -Anesthetic Used 4% Lidocaine 5% Lidocaine 5% Lidocaine Solution,5% Gel Gel Lidocaine Gel -Wound Comment(s) scabbed #3 R Ankle -Combined with other wound No No No -Current Size (cm) - Length 8 1.8 1.5 -Current Size (cm) - Width 2 1 1 -Current Size (cm) - Depth 0.1 0.1 0.1 -Total Square Cm 16 1.8 1.5 -Date of Last Picture (Recall this 04/09/22 04/23/22 field) -Photo Taken Yes Yes Yes -Epithelialization None Present -Tunneling No No No -Undermining/Tunneling No No No -Circular Undermining No No No -Change in Wound Grade/Stage No -Exudate Amt None Present Medium None Present -Exudate Type Serosanguineous -Wound Margin Distinct, Distinct, Distinct, Outline Outline Outline Attached Attached Attached -Granulation Amt None Present (0 Medium (34-66%) None Present (0 %) %) -Granulation Quality N/A Naomi -Slough/Fibrin Yes Yes Yes -Necrosis Amt Large (67-100%) Large (67-100%) Large (67-100%) -Necrotic Tissue Type Eschar Adherent Slough Eschar -Structure Exposed N/A N/A -Texture (Kirstie-wound Skin Appearance) No Abnormality, Assessed Assessed, Assessed Scarring -Moisture (Kirstie-wound Skin Appearance) Assessed,Dry/ Dry/Scaly Assessed Scaly -Color (Kirstie-wound Skin Appearance) No Abnormality, Assessed Assessed Assessed -Temperature (Kirstie-wound Skin No Abnormality No Abnormality No Abnormality Appearance) (Pt Warm) (Pt Warm) (Pt Warm) -Tenderness on Palpation (Kirstie-wound No No No Skin Appearance) -Ulcer Cleansing Rinsed/ Wound Cleanser Soap and Water Irrigated with Saline -Foul Odor after Cleansing No No No -Anesthetic Used 4% Lidocaine 5% Lidocaine 5% Lidocaine Solution,5% Gel Gel Lidocaine Gel -Wound Comment(s) scabbed Lower Limb Edema Present No Yes Right Calf (cm) 30 31 31 Right Ankle (cm) 20.5 20.6 1.5 Left Calf (cm) 30.5 30.2 30.5 Left Ankle (cm) 19.4 19 1.5 04/30/22 13:54 Wound Center Nurse 1 #4 L ankle -Combined with other wound -Current Size (cm) - Length -Current Size (cm) - Width -Current Size (cm) - Depth -Total Square Cm -Date of Last Picture (Recall this field) -Photo Taken -Epithelialization -Tunneling -Undermining/Tunneling -Circular Undermining -Change in Wound Grade/Stage -Exudate Amt -Exudate Type -Wound Margin -Granulation Amt -Granulation Quality -Slough/Fibrin -Necrosis Amt -Necrotic Tissue Type -Structure Exposed -Texture (Kirstie-wound Skin Appearance) -Moisture (Kirstie-wound Skin Appearance) -Color (Kirstie-wound Skin Appearance) -Temperature (Kirstie-wound Skin Appearance) -Tenderness on Palpation (Kirstie-wound Skin Appearance) -Ulcer Cleansing -Foul Odor after Cleansing -Anesthetic Used -Wound Comment(s) #2 R ankle cluster -Combined with other wound -Current Size (cm) - Length -Current Size (cm) - Width -Current Size (cm) - Depth -Total Square Cm -Date of Last Picture (Recall this field) -Photo Taken -Epithelialization -Tunneling -Undermining/Tunneling -Circular Undermining -Change in Wound Grade/Stage -Exudate Amt -Exudate Type -Wound Margin -Granulation Amt -Granulation Quality -Slough/Fibrin -Necrosis Amt -Necrotic Tissue Type -Structure Exposed -Texture (Kirstie-wound Skin Appearance) -Moisture (Kirstie-wound Skin Appearance) -Color (Kirstie-wound Skin Appearance) -Temperature (Kirstie-wound Skin Appearance) -Tenderness on Palpation (Kirstie-wound Skin Appearance) -Ulcer Cleansing -Foul Odor after Cleansing -Anesthetic Used -Wound Comment(s) #1 R lateral foot -Combined with other wound -Current Size (cm) - Length -Current Size (cm) - Width -Current Size (cm) - Depth -Total Square Cm -Date of Last Picture (Recall this field) -Photo Taken -Tunneling -Undermining/Tunneling -Circular Undermining -Change in Wound Grade/Stage -Exudate Amt -Wound Margin -Granulation Amt -Granulation Quality -Slough/Fibrin -Necrosis Amt -Necrotic Tissue Type -Structure Exposed -Texture (Kirstie-wound Skin Appearance) -Moisture (Kirstie-wound Skin Appearance) -Color (Kirstie-wound Skin Appearance) -Temperature (Kirstie-wound Skin Appearance) -Tenderness on Palpation (Kirstie-wound Skin Appearance) -Ulcer Cleansing -Foul Odor after Cleansing -Anesthetic Used -Wound Comment(s) #10 Left Dorsal -Combined with other wound No -Current Size (cm) - Length 0.5 -Current Size (cm) - Width 0.6 -Current Size (cm) - Depth 0.1 -Total Square Cm 0.30 -Photo Taken No -Tunneling No -Undermining/Tunneling No -Circular Undermining No -Change in Wound Grade/Stage No -Exudate Amt Medium -Exudate Type Serosanguineous -Wound Margin Distinct, Outline Attached -Granulation Amt None Present (0 %) -Granulation Quality N/A -Slough/Fibrin Yes -Necrosis Amt Large (67-100%) -Necrotic Tissue Type Adherent Slough -Structure Exposed N/A -Texture (Kirstie-wound Skin Appearance) No Abnormality, Assessed -Moisture (Kirstie-wound Skin Appearance) No Abnormality, Assessed -Color (Kirstie-wound Skin Appearance) No Abnormality, Assessed -Temperature (Kirstie-wound Skin No Abnormality Appearance) (Pt Warm) -Tenderness on Palpation (Kirstie-wound No Skin Appearance) -Ulcer Cleansing Rinsed/ Irrigated with Saline -Foul Odor after Cleansing No -Anesthetic Used 5% Lidocaine Gel #9 Right Achilles -Combined with other wound No -Current Size (cm) - Length 0.5 -Current Size (cm) - Width 0.4 -Current Size (cm) - Depth 0.1 -Total Square Cm 0.20 -Date of Last Picture (Recall this field) -Photo Taken Yes -Epithelialization -Tunneling No -Undermining/Tunneling No -Circular Undermining No -Change in Wound Grade/Stage No -Exudate Amt None Present -Wound Margin Distinct, Outline Attached -Granulation Amt None Present (0 %) -Granulation Quality N/A -Slough/Fibrin Yes -Necrosis Amt None Present (0 %) -Necrotic Tissue Type Adherent Slough -Structure Exposed N/A -Texture (Kirstie-wound Skin Appearance) No Abnormality, Assessed -Moisture (Kirstie-wound Skin Appearance) No Abnormality, Assessed -Color (Kirstie-wound Skin Appearance) No Abnormality, Assessed -Temperature (Kirstie-wound Skin No Abnormality Appearance) (Pt Warm) -Tenderness on Palpation (Kirstie-wound No Skin Appearance) -Ulcer Cleansing Rinsed/ Irrigated with Saline -Foul Odor after Cleansing No -Anesthetic Used 5% Lidocaine Gel -Wound Comment(s) scabbed #8 Right Lat Foot -Combined with other wound No -Current Size (cm) - Length 1.2 -Current Size (cm) - Width 0.6 -Current Size (cm) - Depth 0.1 -Total Square Cm 0.72 -Date of Last Picture (Recall this field) -Photo Taken Yes -Tunneling No -Undermining/Tunneling No -Circular Undermining No -Change in Wound Grade/Stage No -Exudate Amt Medium -Exudate Type Serosanguineous -Wound Margin Distinct, Outline Attached -Granulation Amt None Present (0 %) -Granulation Quality N/A -Slough/Fibrin Yes -Necrosis Amt Large (67-100%) -Necrotic Tissue Type Adherent Slough -Structure Exposed N/A -Texture (Kirstie-wound Skin Appearance) No Abnormality, Assessed -Moisture (Kirstie-wound Skin Appearance) No Abnormality, Assessed -Color (Kirstie-wound Skin Appearance) No Abnormality, Assessed -Temperature (Kirstie-wound Skin No Abnormality Appearance) (Pt Warm) -Tenderness on Palpation (Kirstie-wound No Skin Appearance) -Ulcer Cleansing Rinsed/ Irrigated with Saline -Foul Odor after Cleansing No -Anesthetic Used 5% Lidocaine Gel #7 Right 1st Toe -Combined with other wound No -Current Size (cm) - Length 0.4 -Current Size (cm) - Width 0.6 -Current Size (cm) - Depth 0.1 -Total Square Cm 0.24 -Date of Last Picture (Recall this field) -Photo Taken Yes -Epithelialization -Tunneling No -Undermining/Tunneling No -Circular Undermining No -Change in Wound Grade/Stage No -Exudate Amt None Present -Wound Margin Distinct, Outline Attached -Granulation Amt None Present (0 %) -Granulation Quality N/A -Slough/Fibrin Yes -Necrosis Amt Large (67-100%) -Necrotic Tissue Type Adherent Slough -Structure Exposed N/A -Texture (Kirstie-wound Skin Appearance) No Abnormality, Assessed -Moisture (Kirstie-wound Skin Appearance) No Abnormality, Assessed -Color (Kirstie-wound Skin Appearance) No Abnormality, Assessed -Temperature (Kirstie-wound Skin No Abnormality Appearance) (Pt Warm) -Tenderness on Palpation (Kirstie-wound No Skin Appearance) -Ulcer Cleansing Rinsed/ Irrigated with Saline -Foul Odor after Cleansing No -Anesthetic Used 5% Lidocaine Gel #6 R Dorsal -Combined with other wound No -Combined with (Name of Wound-Exactly right ankle as it is documented) -Current Size (cm) - Length -Current Size (cm) - Width -Current Size (cm) - Depth -Total Square Cm -Date of Last Picture (Recall this field) -Photo Taken -Epithelialization -Tunneling -Undermining/Tunneling -Circular Undermining -Exudate Amt -Exudate Type -Wound Margin -Granulation Amt -Granulation Quality -Slough/Fibrin -Necrosis Amt -Necrotic Tissue Type -Texture (Kirstie-wound Skin Appearance) -Moisture (Kirstie-wound Skin Appearance) -Color (Kirstie-wound Skin Appearance) -Temperature (Kirstie-wound Skin Appearance) -Tenderness on Palpation (Kirstie-wound Skin Appearance) -Ulcer Cleansing -Foul Odor after Cleansing -Anesthetic Used #5 L wrist -Combined with other wound No -Current Size (cm) - Length 0.4 -Current Size (cm) - Width 0.7 -Current Size (cm) - Depth 0.1 -Total Square Cm 0.28 -Date of Last Picture (Recall this field) -Photo Taken No -Epithelialization -Tunneling No -Undermining/Tunneling No -Circular Undermining No -Change in Wound Grade/Stage No -Exudate Amt None Present -Exudate Type -Wound Margin -Granulation Amt None Present (0 %) -Granulation Quality N/A -Slough/Fibrin No -Necrosis Amt None Present (0 %) -Necrotic Tissue Type -Structure Exposed N/A -Texture (Kirstie-wound Skin Appearance) No Abnormality, Assessed -Moisture (Kirstie-wound Skin Appearance) No Abnormality, Assessed -Color (Kirstie-wound Skin Appearance) No Abnormality, Assessed -Temperature (Kirstie-wound Skin No Abnormality Appearance) (Pt Warm) -Tenderness on Palpation (Kirstie-wound No Skin Appearance) -Ulcer Cleansing Rinsed/ Irrigated with Saline -Foul Odor after Cleansing No -Anesthetic Used 5% Lidocaine Gel -Wound Comment(s) #3 R Ankle -Combined with other wound No -Current Size (cm) - Length 6.2 -Current Size (cm) - Width 2 -Current Size (cm) - Depth 0.1 -Total Square Cm 12.4 -Date of Last Picture (Recall this 04/30/22 field) -Photo Taken Yes -Epithelialization -Tunneling No -Undermining/Tunneling No -Circular Undermining No -Change in Wound Grade/Stage No -Exudate Amt Large -Exudate Type Yellow/Green -Wound Margin Distinct, Outline Attached -Granulation Amt None Present (0 %) -Granulation Quality N/A -Slough/Fibrin Yes -Necrosis Amt Large (67-100%) -Necrotic Tissue Type Adherent Slough -Structure Exposed N/A -Texture (Kirstie-wound Skin Appearance) No Abnormality, Assessed -Moisture (Kirstie-wound Skin Appearance) No Abnormality, Assessed -Color (Kirstie-wound Skin Appearance) No Abnormality, Assessed -Temperature (Kirstie-wound Skin No Abnormality Appearance) (Pt Warm) -Tenderness on Palpation (Kirstie-wound No Skin Appearance) -Ulcer Cleansing Rinsed/ Irrigated with Saline -Foul Odor after Cleansing No -Anesthetic Used 5% Lidocaine Gel -Wound Comment(s) Lower Limb Edema Present Right Calf (cm) Right Ankle (cm) Left Calf (cm) Left Ankle (cm) WC - Nurse 2 - General Ulcer CM Notes Start: 04/09/22 13:29 Freq: Status: Active Protocol: Activity Type Activity Date Activity User E-sign Co-sign Detail Recorded Client Recorded Date Recorded By Document 04/09/22 15:12 PL [id number] 04/09/22 15:29 PL Document 04/16/22 15:08 PL [id number] 04/16/22 15:18 PL Document 04/23/22 15:17 PL [id number] 04/23/22 15:26 PL 04/09/22 04/16/22 04/23/22 15:12 15:08 15:17 Wound Center Nurse 2 #4 L ankle -Time 13:35 14:24 -Correct Patient Yes Yes -Correct Side, Site, Position Yes Yes -Correct Procedure Yes Yes -Procedure Performed Yes Yes No -Type of Procedure Debridement Debridement -Clinical Debridement Subcutaneous Subcutaneous -Tissue Removed Subcutaneous Subcutaneous -Post Debridement (cm) - Length 4.8 4.0 -Post Debridement (cm) - Width 1.7 4.5 -Post Debridement (cm) - Depth 0.2 0.1 -Total Square (Post) (cm) 8.16 18.00 -Area of Debridement (cm) - Length 4.8 4.0 -Area of Debridement (cm) - Width 1.7 4.5 -Total Square (Area) (cm) 8.16 18.00 -Tunneling No No -Undermining/Tunneling No No -Circular Undermining No No -Wound/Ulcer Outcome Not Healed Not Healed Healed- Epithelialized -Ulcer Cleansing Rinsed/ Rinsed/ Irrigated with Irrigated with Saline Saline -Foul Odor after Cleansing No No -Bioengineered Tissue No No -Bleeding Controlled with Pressure -Treatment Response Procedure Tolerated Well -Debridement - Subq, 1st 20sq cm No No #2 R ankle cluster -Time 14:24 -Correct Patient Yes -Correct Side, Site, Position Yes -Correct Procedure Yes -Procedure Performed Yes No -Type of Procedure Debridement -Clinical Debridement Subcutaneous -Tissue Removed Subcutaneous -Post Debridement (cm) - Length 1.8 -Post Debridement (cm) - Width 3.0 -Post Debridement (cm) - Depth 0.1 -Total Square (Post) (cm) 5.40 -Area of Debridement (cm) - Length 1.8 -Area of Debridement (cm) - Width 3.0 -Total Square (Area) (cm) 5.40 -Tunneling No -Undermining/Tunneling No -Circular Undermining No -Wound/Ulcer Outcome Not Healed Healed- Epithelialized -Ulcer Cleansing Rinsed/ Irrigated with Saline -Foul Odor after Cleansing No -Bioengineered Tissue No -Bleeding Controlled with Pressure -Treatment Response Procedure Tolerated Well -Debridement - Subq, 1st 20sq cm No #10 Left Dorsal -Time 14:25 -Correct Patient Yes -Correct Side, Site, Position Yes -Correct Procedure Yes -Procedure Performed Yes -Type of Procedure Debridement -Clinical Debridement Subcutaneous -Tissue Removed Subcutaneous -Post Debridement (cm) - Length 0.7 -Post Debridement (cm) - Width 0.8 -Post Debridement (cm) - Depth 0.1 -Total Square (Post) (cm) 0.56 -Area of Debridement (cm) - Length 0.7 -Area of Debridement (cm) - Width 0.8 -Total Square (Area) (cm) 0.56 -Tunneling No -Undermining/Tunneling No -Circular Undermining No -Wound/Ulcer Outcome Not Healed -Ulcer Cleansing Rinsed/ Irrigated with Saline -Foul Odor after Cleansing No -Bioengineered Tissue No -Bleeding Controlled with Pressure -Treatment Response Procedure Tolerated Well -Debridement - Subq, 1st 20sq cm Yes #9 Right Achilles -Time 14:24 14:25 -Correct Patient Yes Yes -Correct Side, Site, Position Yes Yes -Correct Procedure Yes Yes -Procedure Performed Yes Yes -Type of Procedure Debridement Debridement -Clinical Debridement Subcutaneous Subcutaneous -Tissue Removed Subcutaneous Subcutaneous -Post Debridement (cm) - Length 0.3 1.5 -Post Debridement (cm) - Width 0.5 0.8 -Post Debridement (cm) - Depth 0.1 0.1 -Total Square (Post) (cm) 0.15 1.20 -Area of Debridement (cm) - Length 0.3 1.5 -Area of Debridement (cm) - Width 0.5 0.8 -Total Square (Area) (cm) 0.15 1.20 -Tunneling No No -Undermining/Tunneling No No -Circular Undermining No No -Wound/Ulcer Outcome Not Healed Not Healed -Ulcer Cleansing Rinsed/ Rinsed/ Irrigated with Irrigated with Saline Saline -Foul Odor after Cleansing No No -Bioengineered Tissue No No -Bleeding Controlled with Pressure Pressure -Treatment Response Procedure Procedure Tolerated Well Tolerated Well -Debridement - Subq, 1st 20sq cm Yes No -Debridement, SubQ, ea addt'l 20sq cm 1 or part thereof #8 Right Lat Foot -Time 14:24 14:25 -Correct Patient Yes Yes -Correct Side, Site, Position Yes Yes -Correct Procedure Yes Yes -Procedure Performed Yes Yes -Type of Procedure Debridement Debridement -Clinical Debridement Subcutaneous Subcutaneous -Tissue Removed Subcutaneous Subcutaneous -Post Debridement (cm) - Length 2.0 2.0 -Post Debridement (cm) - Width 1.4 1.4 -Post Debridement (cm) - Depth 0.1 0.1 -Total Square (Post) (cm) 2.80 2.80 -Area of Debridement (cm) - Length 2.0 2.0 -Area of Debridement (cm) - Width 1.4 1.4 -Total Square (Area) (cm) 2.80 2.80 -Tunneling No No -Undermining/Tunneling No No -Circular Undermining No No -Wound/Ulcer Outcome Not Healed Not Healed -Ulcer Cleansing Rinsed/ Rinsed/ Irrigated with Irrigated with Saline Saline -Foul Odor after Cleansing No No -Bioengineered Tissue No No -Bleeding Controlled with Pressure Pressure -Treatment Response Procedure Procedure Tolerated Well Tolerated Well -Debridement - Subq, 1st 20sq cm No No #7 Right 1st Toe -Time 14:24 14:25 -Correct Patient Yes Yes -Correct Side, Site, Position Yes Yes -Correct Procedure Yes Yes -Procedure Performed Yes Yes -Type of Procedure Debridement Debridement -Clinical Debridement Subcutaneous Subcutaneous -Tissue Removed Subcutaneous Subcutaneous -Post Debridement (cm) - Length 1.0 0.5 -Post Debridement (cm) - Width 2.0 1.5 -Post Debridement (cm) - Depth 0.1 0.1 -Total Square (Post) (cm) 2.00 0.75 -Area of Debridement (cm) - Length 1.0 0.5 -Area of Debridement (cm) - Width 2.0 1.5 -Total Square (Area) (cm) 2.00 0.75 -Tunneling No No -Undermining/Tunneling No No -Circular Undermining No No -Wound/Ulcer Outcome Not Healed Not Healed -Ulcer Cleansing Rinsed/ Rinsed/ Irrigated with Irrigated with Saline Saline -Foul Odor after Cleansing No No -Bioengineered Tissue No -Bleeding Controlled with Pressure Pressure -Treatment Response Procedure Procedure Tolerated Well Tolerated Well -Debridement - Subq, 1st 20sq cm No No #6 R Dorsal -Time 14:24 14:25 -Correct Patient Yes Yes -Correct Side, Site, Position Yes Yes -Correct Procedure Yes Yes -Procedure Performed Yes Yes -Type of Procedure Debridement Debridement -Clinical Debridement Subcutaneous Subcutaneous -Tissue Removed Subcutaneous Subcutaneous -Post Debridement (cm) - Length 1.5 1.2 -Post Debridement (cm) - Width 1.4 1.0 -Post Debridement (cm) - Depth 0.1 0.1 -Total Square (Post) (cm) 2.10 1.20 -Area of Debridement (cm) - Length 1.5 1.2 -Area of Debridement (cm) - Width 1.4 1.0 -Total Square (Area) (cm) 2.10 1.20 -Tunneling No No -Undermining/Tunneling No No -Circular Undermining No No -Wound/Ulcer Outcome Not Healed Not Healed -Ulcer Cleansing Rinsed/ Rinsed/ Irrigated with Irrigated with Saline Saline -Foul Odor after Cleansing No No -Bioengineered Tissue No No -Bleeding Controlled with Pressure Pressure -Treatment Response Procedure Procedure Tolerated Well Tolerated Well -Debridement - Subq, 1st 20sq cm No No #5 L wrist -Time 13:35 14:24 14:25 -Correct Patient Yes Yes Yes -Correct Side, Site, Position Yes Yes Yes -Correct Procedure Yes Yes Yes -Procedure Performed Yes Yes Yes -Type of Procedure Debridement Debridement Debridement -Clinical Debridement Subcutaneous Subcutaneous Subcutaneous -Tissue Removed Subcutaneous Subcutaneous Subcutaneous -Post Debridement (cm) - Length 1.2 0.9 0.4 -Post Debridement (cm) - Width 3.8 2.1 1.6 -Post Debridement (cm) - Depth 0.7 0.4 0.1 -Total Square (Post) (cm) 4.56 1.89 0.64 -Area of Debridement (cm) - Length 1.2 0.9 0.4 -Area of Debridement (cm) - Width 3.8 2.1 1.6 -Total Square (Area) (cm) 4.56 1.89 0.64 -Tunneling No No No -Undermining/Tunneling No No No -Circular Undermining No No No -Wound/Ulcer Outcome Not Healed Not Healed Not Healed -Ulcer Cleansing Rinsed/ Rinsed/ Rinsed/ Irrigated with Irrigated with Irrigated with Saline Saline Saline -Foul Odor after Cleansing No No No -Bioengineered Tissue No No No -Bleeding Controlled with Pressure Pressure Pressure -Treatment Response Procedure Procedure Procedure Tolerated Well Tolerated Well Tolerated Well -Debridement - Subq, 1st 20sq cm Yes No No -Debridement, SubQ, ea addt'l 20sq cm 2 or part thereof #3 R Ankle -Time 14:24 14:25 -Correct Patient Yes Yes -Correct Side, Site, Position Yes Yes -Correct Procedure Yes Yes -Procedure Performed Yes Yes -Type of Procedure Debridement Debridement -Clinical Debridement Subcutaneous Subcutaneous -Tissue Removed Subcutaneous Subcutaneous -Post Debridement (cm) - Length 1.9 1.8 -Post Debridement (cm) - Width 1.3 2.5 -Post Debridement (cm) - Depth 0.1 0.1 -Total Square (Post) (cm) 2.47 4.50 -Area of Debridement (cm) - Length 1.9 1.8 -Area of Debridement (cm) - Width 1.3 2.5 -Total Square (Area) (cm) 2.47 4.50 -Tunneling No No -Undermining/Tunneling No No -Circular Undermining No No -Wound/Ulcer Outcome Not Healed Not Healed -Ulcer Cleansing Rinsed/ Rinsed/ Irrigated with Irrigated with Saline Saline -Foul Odor after Cleansing No No -Bioengineered Tissue No No -Bleeding Controlled with Pressure Pressure -Treatment Response Procedure Procedure Tolerated Well Tolerated Well -Debridement - Subq, 1st 20sq cm No No Pain Scale: 0-10 Numeric Is Patient Pain Free? Yes Yes Yes WC - Nurse 3 - General Ulcer D/C NN Start: 04/09/22 13:29 Freq: Status: Active Protocol: Activity Type Activity Date Activity User E-sign Co-sign Detail Recorded Client Recorded Date Recorded By Document 04/09/22 15:05 [place] [id number] 04/09/22 15:16 [place] Document 04/16/22 14:59 MD [id number] 04/16/22 15:01 MD Document 04/23/22 14:53 [facility] [id number] 04/23/22 14:57 [facility] 04/09/22 04/16/22 04/23/22 15:05 14:59 14:53 Wound Care Center Nurse 3 #4 L ankle -Ulcer Cleansing Soap and Water Rinsed/ Rinsed/ Irrigated with Irrigated with Saline Saline -Foul Odor after Cleansing No No -Negative Pressure Wound Therapy N/A -Other Dressing santyl ordered. hydrogel SANTYL hydrogel placed today on wounds. -Primary Dressing Covered/Secured with Dry Gauze & Dry Gauze & Dry Gauze & Roll Gauze, Roll Gauze, Roll Gauze, Secured with Secured with Secured with Tape Tape Tape -Other Covering DRSG PER MT RN #2 R ankle cluster -Ulcer Cleansing Soap and Water Rinsed/ Rinsed/ Irrigated with Irrigated with Saline Saline -Foul Odor after Cleansing No No -Negative Pressure Wound Therapy N/A -Other Dressing hydrogel SANTYL -Primary Dressing Covered/Secured with Dry Gauze & Dry Gauze & Dry Gauze & Roll Gauze, Roll Gauze, Roll Gauze, Secured with Secured with Secured with Tape Tape Tape -Other Covering DRSG PER MT RN #1 R lateral foot -Ulcer Cleansing Soap and Water -Primary Dressing Covered/Secured with Dry Gauze & Roll Gauze, Secured with Tape #9 Right Achilles -Ulcer Cleansing Rinsed/ Irrigated with Saline -Foul Odor after Cleansing No -Other Dressing SANTYL -Primary Dressing Covered/Secured with Dry Gauze & Roll Gauze, Secured with Tape -Other Covering DRSG PER MT RN #8 Right Lat Foot -Ulcer Cleansing Rinsed/ Irrigated with Saline -Foul Odor after Cleansing No -Other Dressing SANTYL -Primary Dressing Covered/Secured with Dry Gauze & Roll Gauze, Secured with Tape -Other Covering DRSG PER [place] RN #7 Right 1st Toe -Ulcer Cleansing Rinsed/ Irrigated with Saline -Foul Odor after Cleansing No -Other Dressing SANTYL -Primary Dressing Covered/Secured with Dry Gauze & Roll Gauze, Secured with Tape -Other Covering DRSG PER [place] RN #6 R Dorsal -Ulcer Cleansing Rinsed/ Irrigated with Saline -Foul Odor after Cleansing No -Other Dressing SANTYL -Primary Dressing Covered/Secured with Dry Gauze & Roll Gauze, Secured with Tape -Other Covering DRSG PER [place] #5 L wrist -Ulcer Cleansing Rinsed/ Rinsed/ Irrigated with Irrigated with Saline Saline -Foul Odor after Cleansing No No -Negative Pressure Wound Therapy N/A -Primary Dressing Applied Promogran Promogran C Hydrogel ($) Marcela Matter Marcela Matter, Mepilex Border -Other Dressing DRSG PER [place] RN -Primary Dressing Covered/Secured with Dry Gauze & Dry Gauze & Roll Gauze, Roll Gauze, Secured with Secured with Tape Tape -Mepilex Border 1 -Promogran Marcela Matter 1 1 #3 R Ankle -Ulcer Cleansing Soap and Water Rinsed/ Rinsed/ Irrigated with Irrigated with Saline Saline -Foul Odor after Cleansing No No -Negative Pressure Wound Therapy N/A -Other Dressing hydrogel SANTYL -Primary Dressing Covered/Secured with Dry Gauze & Dry Gauze & Dry Gauze & Roll Gauze, Roll Gauze, Roll Gauze, Secured with Secured with Secured with Tape Tape Tape -Other Covering DRSG PER [place] RN Right -Lotion applied to leg before No compression wrap -Tubular Bandage Single Layer Single Layer Single Layer -Size of Tubigrip Used Size D Size E Size D -Size D ($) 1 1 -Size E ($) 1 Left -Tubular Bandage Single Layer Single Layer Single Layer -Size of Tubigrip Used Size D Size E Size D -Size D ($) 1 1 -Size E ($) 1 Pain Scale: 0-10 Numeric Is Patient Pain Free? Yes Yes Yes WC - Visit Discharge Discharge Condition Stable Stable Ambulatory Status Ambulatory Ambulatory Transportation Private Auto Private Auto Medication Reconcilliation completed & Yes provided to patient/care provider Clinical Summary of Care Provided Yes Additional Wound Wound debrided: R ankle Laterality: Right Type of Debridement: Excisional debridement Anesthesia Used: 5% Lidocaine Gel and Cetacaine Depth: Down to and including healthy tissue and in the subcutaneous layer Percentage of wound debrided: 100 Instrument Used: 5mm curette, #10 blade and Forceps Tissue Removed: adherent slough/scab, devitalized tissue Severity: Fat Layer Exposed Amount of bleeding with debridement: Mild Bleeding Controlled with: Pressure Patient tolerated procedure: Patient tolerated procedure well Additional Wound Wound debrided: R dorsal foot Laterality: Right Type of Debridement: Excisional debridement Anesthesia Used: 5% Lidocaine Gel and Cetacaine Depth: Down to and including healthy tissue and in the subcutaneous layer Percentage of wound debrided: 100 Instrument Used: 5mm curette Tissue Removed: adherent slough/scab, devitalized tissue Severity: Fat Layer Exposed Amount of bleeding with debridement: Mild Bleeding Controlled with: Pressure Patient tolerated procedure: Patient tolerated procedure well Additional Wound Wound debrided: L wrist Laterality: Left Type of Debridement: Excisional debridement Anesthesia Used: 5% Lidocaine Gel and Cetacaine Depth: Down to and including healthy tissue and in the subcutaneous layer Percentage of wound debrided: 100 Instrument Used: 5mm curette Tissue Removed: adherent slough/scab, devitalized tissue Severity: Fat Layer Exposed Amount of bleeding with debridement: Mild Bleeding Controlled with: Pressure Patient tolerated procedure: Patient tolerated procedure well Additional Wound Wound debrided: L dorsal foot Laterality: Left Type of Debridement: Excisional debridement Anesthesia Used: 5% Lidocaine Gel and Cetacaine Depth: Down to and including healthy tissue and in the subcutaneous layer Percentage of wound debrided: 100 Instrument Used: 5mm curette Tissue Removed: adherent slough/scab, devitalized tissue Severity: Fat Layer Exposed Amount of bleeding with debridement: Mild Bleeding Controlled with: Pressure Additional Wound Wound debrided: R great toe Laterality: Right Type of Debridement: Excisional debridement Anesthesia Used: 5% Lidocaine Gel Depth: Down to and including healthy tissue Instrument Used: 5mm curette Tissue Removed: slough, devitalized tissue Bleeding Controlled with: Pressure Patient tolerated procedure: Patient tolerated procedure well Assessment/Plan Assessment/Plan (1) 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 All of wounds with improved size from last week. All wound bases had pink granulation tissue and good bleeding. Continue santyl to all lower extremity wounds, cover with DSD/kerlix and apply tubigrips for compression. If he runs out of Santly this week, apply collagen hydrogel to all wounds until Tuesday. Anticipate switching to promogran next week. Collagen hydrogel to L wrist wound. Silicone-bordered dressing for secondary. Change dressings daily or more often as needed to keep clean and dry. Return to clinic in 1 week or sooner as needed. 04/30/22 [id number] <Electronically signed by Tonia ACUNA> Cosigner Signature (if applicable): CC: ~ Signed [facility] Work Phone: [phone] 675-926503-17-2023 Progress note Author [facility] April 23, 2022 5:51pm Note Date/Time April 23, 2022 5:5 1pm [facility] [address] [place] [address] Progress Note - Wound Care 04/23/22 1744 MR#: [id number] Acct: [id number] Name: ABELARDO IVORY Rep #:[id number] 17 : 1950 72 From: Tonia ACUNA PCP: Dr. zEekiel Carrasco MD Status: REG RCR Location: History of Present Illness Date of Service: 04/23/22 Chief Complaint: Left wrist wound Multiple bilateral lower extremity wounds History of Wound: Patient is new to [facility] but known to me from the vascular surgery clinic. 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 Patient was understandably quite ill following this and hospitalized for some time during which he had significant BLE edema at which point the wounds began to appear. They were overall stable for some time, and then he was hospitalized a few weeks ago for pneumonia, had increased BLE edema again, and wounds worsened/new ones appeared. Since then, he feels they are improved in appearance. The wrist wound appeared during the initial hospitalization for AAA, at that time he describes it initially as a hematoma which eventually developed into this chronic wound. Last week, he had significant erythema and pain in his RLE and was started on antibiotics. Venous duplex was also obtained to r/o DVT and this was negative. Erythema did improve with antibiotics. Patient still has pain in bilateral feet,worse right than left; bilateral feet/ankles are intermittently hypersensitive to touch. He notes continued mild BLE edema. He does not currently wear compression. Subjective Subjective Paitent has been applying Santyl and changing dressings for his BLE wounds as directed. He has been applying marcela and DSD to L wrist wound as directed. No new/worsening pain, erythema, swelling, drainage, foul odor, F/C, N/V. Objective Data Objective Data Vital Signs: Vital Signs Temp Pulse Resp BP O2 Del Method O2 Flow Rate 97 F L 74 16 149/72 H Room Air 2 04/23/22 14:03 04/23/22 14:03 04/23/22 14:03 04/23/22 14:03 04/23/22 14:03 04/16/22 14:11 Oxygen Flow Rate (L/min) 2 Oxygen Delivery Method Room Air Charges/Coding Wound Center CF Procedures [id number]: [id number] RMVL DEVITAL TIS 20 CM/< Multi Select Codes Wound Center CF Procedures [id number]: [id number] RMVL DEVITAL TIS 20 CM/< Physical Exam Const alert, oriented x3 and no apparent distress General Appearance: cooperative, comfortable and well developed HEENT normocephalic, head/scalp atraumatic, hearing grossly normal bilaterally, external ears normal and external nose normal Eyes EOMs intact bilaterally General Eye: normal appearance of both eyes Neck full ROM General: normal visual inspection and trachea midline Resp normal respiratory effort, no retractions and no use of accessory muscles Effort and Inspection: able to speak in complete sentences and symmetric chest movement Cardio regular rate and regular rhythm Peripheral Pulses: brachial pulses present and radial pulses present Extremity Extremity Narrative: Mild bilateral lower extremity edema, right worse than left. Patient had sensitivity to light touch, especially on R foot. Skin Wounds: wounds noted Wound Narrative: Multiple bilateral ankle/foot wounds. All with improved appearance. Some have healed since last week. Naomi, granulation tissue at the wound beds. Good bleeding. No significant erythema, foul odor, drainage noted. Left wrist wound with pink granulation tissue at base, minimal slough. Significantly decreased in size from last week. 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: R cherry sorter lower leg Laterality: Right Type of Debridement: Excisional debridement Anesthesia Used: 5% Lidocaine Gel and Cetacaine Depth: Down to and including healthy tissue and in the subcutaneous layer Percentage of wound debrided: 100 Instrument Used: 5mm curette Tissue Removed: adherent slough/scab, devitalized tissue Severity: Fat Layer Exposed Amount of bleeding with debridement: Mild Bleeding Controlled with: Pressure Patient tolerated procedure: Patient tolerated procedure well Post-Debridement Measurements and Additional Note: Post-Debridement Measurements/Treatment - Nurse 1 - General Ulcer Assessment Start: 04/09/22 13:29 Freq: Status: Active Protocol: JC Activity Type Activity Date Activity User E-sign Co-sign Detail Recorded Client Recorded Date Recorded By Document 04/09/22 13:30 MD [id number] 04/09/22 13:42 AK Document 04/16/22 14:11 MD [id number] 04/16/22 14:21 MD Document 04/23/22 14:03 [place] [id number] 04/23/22 14:17 [place] 04/09/22 04/16/22 04/23/22 13:30 14:11 14:03 - Today's Visit Information Type of service Initial Visit Follow-up Visit Follow-up Visit (Physician/MECHANIC (Physician/MECHANIC ) ) Arrival Mode Ambulatory Ambulatory Ambulatory Transfer Assistance None None Patient Identification Verified (Name & Yes Yes Yes ) Patient Requires Transmission-Based No No No Precautions Safety Precautions NA Finger Stick Blood Sugar(mg/dl) (if 149 indicated): Blood Sugar Stated by Patient Vital Signs Temperature (97.8 F-99.1 F) 97.2 F L 97 F L Temperature Source Temporal Temporal Pulse Rate (60-100) 58 L 74 Pulse Location Monitor Monitor Respiratory Rate (12-18) 18 16 Respiratory rate source Observation Observation Oxygen Delivery Method Nasal Cannula Room Air O2 L/MIN (L/min) 2 Blood Pressure (90/60-120/80) 155/78 H 149/72 H Blood Pressure Mean (mm Hg) 103 97 Source Monitor Monitor Position Sitting Sitting Blood Pressure Location Right Arm Right Arm History Since Last Visit- (Skip if this is Patient's initial visit) Have you changed medications since your No No last visit? Any new allergies or adverse reactions No No Had a fall/change in ADL's that may No No increase risk of falls Signs or symptoms of abuse and/or No No neglect since last visit Have you been in the hospital since your No No last visit? Has dressing in place as prescribed Yes Yes Has compression in place as prescribed No No Has offloadiing in place as prescribed No N/A Experienced any changes in pain level or No No management Left Footwear Regular Shoe Regular Shoe Right Footwear Regular Shoe Regular Shoe Pain Scale: 0-10 Numeric Is Patient Pain Free? No Yes Yes WC - Nurse 1 - General Ulcer Measurement Start: 04/09/22 13:29 Freq: Status: Active Protocol: Activity Type Activity Date Activity User E-sign Co-sign Detail Recorded Client Recorded Date Recorded By Document 04/09/22 13:30 MD [id number] 04/09/22 13:42 MD Document 04/16/22 14:11 MD [id number] 04/16/22 14:21 MD Document 04/23/22 14:03 [place] [id number] 04/23/22 14:17 [place] 04/09/22 04/16/22 04/23/22 13:30 14:11 14:03 Wound Center Nurse 1 #4 L ankle -Combined with other wound No No No -Current Size (cm) - Length 4 2 0.7 -Current Size (cm) - Width 4.8 1.1 1 -Current Size (cm) - Depth 0.1 0.1 0.1 -Total Square Cm 19.2 2.2 0.7 -Date of Last Picture (Recall this 04/23/22 field) -Photo Taken Yes Yes Yes -Epithelialization None Present -Tunneling No No No -Undermining/Tunneling No No No -Circular Undermining No No No -Change in Wound Grade/Stage No -Exudate Amt None Present Medium Small -Exudate Type Serosanguineous Serosanguineous -Wound Margin Distinct, Distinct, Distinct, Outline Outline Outline Attached Attached Attached -Granulation Amt None Present (0 Medium (34-66%) Medium (34-66%) %) -Granulation Quality N/A Naomi Red -Slough/Fibrin Yes Yes Yes -Necrosis Amt Large (67-100%) Medium (34-66%) Medium (34-66%) -Necrotic Tissue Type Eschar Adherent Slough Adherent Slough -Structure Exposed N/A N/A -Texture (Kirstie-wound Skin Appearance) Assessed Assessed Assessed, Scarring -Moisture (Kirstie-wound Skin Appearance) Assessed,Dry/ Assessed,Dry/ Assessed Scaly Scaly -Color (Kirstie-wound Skin Appearance) No Abnormality, Assessed Assessed Not Assessed -Temperature (Kirstie-wound Skin No Abnormality No Abnormality No Abnormality Appearance) (Pt Warm) (Pt Warm) (Pt Warm) -Tenderness on Palpation (Kirstie-wound No No No Skin Appearance) -Ulcer Cleansing Rinsed/ Wound Cleanser Soap and Water Irrigated with Saline -Foul Odor after Cleansing No No No -Anesthetic Used 4% Lidocaine 5% Lidocaine 5% Lidocaine Solution,5% Gel Gel Lidocaine Gel -Wound Comment(s) scabbed #2 R ankle cluster -Combined with other wound No No No -Current Size (cm) - Length 6.5 6.5 2 -Current Size (cm) - Width 5 14 1.1 -Current Size (cm) - Depth 0.1 0.1 0.1 -Total Square Cm 32.5 91.0 2.2 -Date of Last Picture (Recall this 04/09/22 04/23/22 field) -Photo Taken Yes Yes -Epithelialization None Present -Tunneling No No No -Undermining/Tunneling No No No -Circular Undermining No No No -Change in Wound Grade/Stage No -Exudate Amt None Present Medium Small -Exudate Type Serosanguineous Serosanguineous -Wound Margin Distinct, Distinct, Outline Outline Attached Attached -Granulation Amt None Present (0 Medium (34-66%) None Present (0 %) %) -Granulation Quality N/A Naomi -Slough/Fibrin Yes Yes Yes -Necrosis Amt Large (67-100%) Large (67-100%) Large (67-100%) -Necrotic Tissue Type Eschar Adherent Slough Eschar -Structure Exposed N/A N/A -Texture (Kirstie-wound Skin Appearance) No Abnormality, Assessed Assessed, Assessed Scarring -Moisture (Kirstie-wound Skin Appearance) Assessed,Dry/ Dry/Scaly Assessed Scaly -Color (Kirstie-wound Skin Appearance) No Abnormality, Assessed Assessed Assessed -Temperature (Kirstie-wound Skin No Abnormality No Abnormality No Abnormality Appearance) (Pt Warm) (Pt Warm) (Pt Warm) -Tenderness on Palpation (Kirstie-wound No No No Skin Appearance) -Ulcer Cleansing Rinsed/ Wound Cleanser Soap and Water Irrigated with Saline -Foul Odor after Cleansing No No No -Anesthetic Used 4% Lidocaine 5% Lidocaine 5% Lidocaine Solution,5% Gel Gel Lidocaine Gel -Wound Comment(s) scabbed #1 R lateral foot -Combined with other wound No -Current Size (cm) - Length 2.2 -Current Size (cm) - Width 4.5 -Current Size (cm) - Depth 0.1 -Total Square Cm 9.90 -Date of Last Picture (Recall this 04/09/22 field) -Photo Taken Yes -Tunneling No -Undermining/Tunneling No -Circular Undermining No -Change in Wound Grade/Stage No -Exudate Amt None Present -Wound Margin Distinct, Outline Attached -Granulation Amt None Present (0 %) -Granulation Quality N/A -Slough/Fibrin No -Necrosis Amt Large (67-100%) -Necrotic Tissue Type Eschar -Structure Exposed N/A -Texture (Kirstie-wound Skin Appearance) No Abnormality, Assessed -Moisture (Kirstie-wound Skin Appearance) No Abnormality, Assessed -Color (Kirstie-wound Skin Appearance) No Abnormality, Assessed -Temperature (Kirstie-wound Skin No Abnormality Appearance) (Pt Warm) -Tenderness on Palpation (Kirstie-wound No Skin Appearance) -Ulcer Cleansing Rinsed/ Irrigated with Saline -Foul Odor after Cleansing No -Anesthetic Used 4% Lidocaine Solution,5% Lidocaine Gel -Wound Comment(s) scabbed #9 Right Achilles -Combined with other wound No -Current Size (cm) - Length 0 -Current Size (cm) - Width 0 -Current Size (cm) - Depth 0 -Total Square Cm 0 -Date of Last Picture (Recall this 04/23/22 field) -Photo Taken No -Epithelialization Large 67-100% #8 Right Lat Foot -Combined with other wound No -Current Size (cm) - Length 0 -Current Size (cm) - Width 0 -Current Size (cm) - Depth 0 -Total Square Cm 0 -Date of Last Picture (Recall this 04/23/22 field) -Photo Taken Yes #7 Right 1st Toe -Combined with other wound No -Current Size (cm) - Length 0.1 -Current Size (cm) - Width 0.1 -Current Size (cm) - Depth 0.1 -Total Square Cm 0.01 -Date of Last Picture (Recall this 04/23/22 field) -Photo Taken Yes -Epithelialization Large 67-100% #6 R Dorsal -Combined with other wound No -Current Size (cm) - Length 6.5 -Current Size (cm) - Width 2.5 -Current Size (cm) - Depth 0.1 -Total Square Cm 16.25 -Date of Last Picture (Recall this 04/23/22 field) -Photo Taken Yes -Epithelialization Small 1-33% -Tunneling No -Undermining/Tunneling No -Circular Undermining No -Exudate Amt Small -Exudate Type Serosanguineous -Wound Margin Distinct, Outline Attached -Granulation Amt Medium (34-66%) -Granulation Quality Red -Slough/Fibrin Yes -Necrosis Amt Medium (34-66%) -Necrotic Tissue Type Adherent Slough -Texture (Kirstie-wound Skin Appearance) Assessed, Scarring -Moisture (Kirstie-wound Skin Appearance) Assessed -Color (Kirstie-wound Skin Appearance) Assessed -Temperature (Kirstie-wound Skin No Abnormality Appearance) (Pt Warm) -Tenderness on Palpation (Kirstie-wound No Skin Appearance) -Ulcer Cleansing Soap and Water -Foul Odor after Cleansing No -Anesthetic Used 5% Lidocaine Gel #5 L wrist -Combined with other wound No No No -Current Size (cm) - Length 1.1 0.5 0.4 -Current Size (cm) - Width 3.2 2.1 1.6 -Current Size (cm) - Depth 0.1 0.3 0.1 -Total Square Cm 3.52 1.05 0.64 -Date of Last Picture (Recall this 04/23/22 field) -Photo Taken Yes Yes Yes -Epithelialization None Present -Tunneling No No No -Undermining/Tunneling No No No -Circular Undermining No No No -Change in Wound Grade/Stage No -Exudate Amt None Present Medium Small -Exudate Type Serosanguineous Serosanguineous -Wound Margin Distinct, Distinct, Distinct, Outline Outline Outline Attached Attached Attached -Granulation Amt None Present (0 Medium (34-66%) None Present (0 %) %) -Granulation Quality Naomi -Slough/Fibrin Yes Yes Yes -Necrosis Amt Large (67-100%) Large (67-100%) Large (67-100%) -Necrotic Tissue Type Adherent Slough Adherent Slough Adherent Slough -Structure Exposed N/A N/A -Texture (Kirstie-wound Skin Appearance) No Abnormality, Assessed Assessed, Assessed Scarring -Moisture (Kirstie-wound Skin Appearance) Assessed,Dry/ Dry/Scaly Assessed Scaly -Color (Kirstie-wound Skin Appearance) No Abnormality, Assessed Assessed Assessed -Temperature (Kirstie-wound Skin No Abnormality No Abnormality No Abnormality Appearance) (Pt Warm) (Pt Warm) (Pt Warm) -Tenderness on Palpation (Kirstie-wound No No No Skin Appearance) -Ulcer Cleansing Rinsed/ Wound Cleanser Soap and Water Irrigated with Saline -Foul Odor after Cleansing No No Yes, Due to Product Use -Anesthetic Used 4% Lidocaine 5% Lidocaine 5% Lidocaine Solution,5% Gel Gel Lidocaine Gel -Wound Comment(s) scabbed #3 R Ankle -Combined with other wound No No No -Current Size (cm) - Length 8 1.8 1.5 -Current Size (cm) - Width 2 1 1 -Current Size (cm) - Depth 0.1 0.1 0.1 -Total Square Cm 16 1.8 1.5 -Date of Last Picture (Recall this 04/09/22 04/23/22 field) -Photo Taken Yes Yes Yes -Epithelialization None Present -Tunneling No No No -Undermining/Tunneling No No No -Circular Undermining No No No -Change in Wound Grade/Stage No -Exudate Amt None Present Medium None Present -Exudate Type Serosanguineous -Wound Margin Distinct, Distinct, Distinct, Outline Outline Outline Attached Attached Attached -Granulation Amt None Present (0 Medium (34-66%) None Present (0 %) %) -Granulation Quality N/A Naomi -Slough/Fibrin Yes Yes Yes -Necrosis Amt Large (67-100%) Large (67-100%) Large (67-100%) -Necrotic Tissue Type Eschar Adherent Slough Eschar -Structure Exposed N/A N/A -Texture (Kirstie-wound Skin Appearance) No Abnormality, Assessed Assessed, Assessed Scarring -Moisture (Kirstie-wound Skin Appearance) Assessed,Dry/ Dry/Scaly Assessed Scaly -Color (Kirstie-wound Skin Appearance) No Abnormality, Assessed Assessed Assessed -Temperature (Kirstie-wound Skin No Abnormality No Abnormality No Abnormality Appearance) (Pt Warm) (Pt Warm) (Pt Warm) -Tenderness on Palpation (Kirstie-wound No No No Skin Appearance) -Ulcer Cleansing Rinsed/ Wound Cleanser Soap and Water Irrigated with Saline -Foul Odor after Cleansing No No No -Anesthetic Used 4% Lidocaine 5% Lidocaine 5% Lidocaine Solution,5% Gel Gel Lidocaine Gel -Wound Comment(s) scabbed Lower Limb Edema Present No Yes Right Calf (cm) 30 31 31 Right Ankle (cm) 20.5 20.6 1.5 Left Calf (cm) 30.5 30.2 30.5 Left Ankle (cm) 19.4 19 1.5 WC - Nurse 2 - General Ulcer CM Notes Start: 04/09/22 13:29 Freq: Status: Active Protocol: Activity Type Activity Date Activity User E-sign Co-sign Detail Recorded Client Recorded Date Recorded By Document 04/09/22 15:12 PL [id number] 04/09/22 15:29 PL Document 04/16/22 15:08 PL [id number] 04/16/22 15:18 PL Document 04/23/22 15:17 PL [id number] 04/23/22 15:26 PL 04/09/22 04/16/22 04/23/22 15:12 15:08 15:17 Wound Center Nurse 2 #4 L ankle -Time 13:35 14:24 -Correct Patient Yes Yes -Correct Side, Site, Position Yes Yes -Correct Procedure Yes Yes -Procedure Performed Yes Yes No -Type of Procedure Debridement Debridement -Clinical Debridement Subcutaneous Subcutaneous -Tissue Removed Subcutaneous Subcutaneous -Post Debridement (cm) - Length 4.8 4.0 -Post Debridement (cm) - Width 1.7 4.5 -Post Debridement (cm) - Depth 0.2 0.1 -Total Square (Post) (cm) 8.16 18.00 -Area of Debridement (cm) - Length 4.8 4.0 -Area of Debridement (cm) - Width 1.7 4.5 -Total Square (Area) (cm) 8.16 18.00 -Tunneling No No -Undermining/Tunneling No No -Circular Undermining No No -Wound/Ulcer Outcome Not Healed Not Healed Healed- Epithelialized -Ulcer Cleansing Rinsed/ Rinsed/ Irrigated with Irrigated with Saline Saline -Foul Odor after Cleansing No No -Bioengineered Tissue No No -Bleeding Controlled with Pressure -Treatment Response Procedure Tolerated Well -Debridement - Subq, 1st 20sq cm No No #2 R ankle cluster -Time 14:24 -Correct Patient Yes -Correct Side, Site, Position Yes -Correct Procedure Yes -Procedure Performed Yes No -Type of Procedure Debridement -Clinical Debridement Subcutaneous -Tissue Removed Subcutaneous -Post Debridement (cm) - Length 1.8 -Post Debridement (cm) - Width 3.0 -Post Debridement (cm) - Depth 0.1 -Total Square (Post) (cm) 5.40 -Area of Debridement (cm) - Length 1.8 -Area of Debridement (cm) - Width 3.0 -Total Square (Area) (cm) 5.40 -Tunneling No -Undermining/Tunneling No -Circular Undermining No -Wound/Ulcer Outcome Not Healed Healed- Epithelialized -Ulcer Cleansing Rinsed/ Irrigated with Saline -Foul Odor after Cleansing No -Bioengineered Tissue No -Bleeding Controlled with Pressure -Treatment Response Procedure Tolerated Well -Debridement - Subq, 1st 20sq cm No #10 Left Dorsal -Time 14:25 -Correct Patient Yes -Correct Side, Site, Position Yes -Correct Procedure Yes -Procedure Performed Yes -Type of Procedure Debridement -Clinical Debridement Subcutaneous -Tissue Removed Subcutaneous -Post Debridement (cm) - Length 0.7 -Post Debridement (cm) - Width 0.8 -Post Debridement (cm) - Depth 0.1 -Total Square (Post) (cm) 0.56 -Area of Debridement (cm) - Length 0.7 -Area of Debridement (cm) - Width 0.8 -Total Square (Area) (cm) 0.56 -Tunneling No -Undermining/Tunneling No -Circular Undermining No -Wound/Ulcer Outcome Not Healed -Ulcer Cleansing Rinsed/ Irrigated with Saline -Foul Odor after Cleansing No -Bioengineered Tissue No -Bleeding Controlled with Pressure -Treatment Response Procedure Tolerated Well -Debridement - Subq, 1st 20sq cm Yes #9 Right Achilles -Time 14:24 14:25 -Correct Patient Yes Yes -Correct Side, Site, Position Yes Yes -Correct Procedure Yes Yes -Procedure Performed Yes Yes -Type of Procedure Debridement Debridement -Clinical Debridement Subcutaneous Subcutaneous -Tissue Removed Subcutaneous Subcutaneous -Post Debridement (cm) - Length 0.3 1.5 -Post Debridement (cm) - Width 0.5 0.8 -Post Debridement (cm) - Depth 0.1 0.1 -Total Square (Post) (cm) 0.15 1.20 -Area of Debridement (cm) - Length 0.3 1.5 -Area of Debridement (cm) - Width 0.5 0.8 -Total Square (Area) (cm) 0.15 1.20 -Tunneling No No -Undermining/Tunneling No No -Circular Undermining No No -Wound/Ulcer Outcome Not Healed Not Healed -Ulcer Cleansing Rinsed/ Rinsed/ Irrigated with Irrigated with Saline Saline -Foul Odor after Cleansing No No -Bioengineered Tissue No No -Bleeding Controlled with Pressure Pressure -Treatment Response Procedure Procedure Tolerated Well Tolerated Well -Debridement - Subq, 1st 20sq cm Yes No -Debridement, SubQ, ea addt'l 20sq cm 1 or part thereof #8 Right Lat Foot -Time 14:24 14:25 -Correct Patient Yes Yes -Correct Side, Site, Position Yes Yes -Correct Procedure Yes Yes -Procedure Performed Yes Yes -Type of Procedure Debridement Debridement -Clinical Debridement Subcutaneous Subcutaneous -Tissue Removed Subcutaneous Subcutaneous -Post Debridement (cm) - Length 2.0 2.0 -Post Debridement (cm) - Width 1.4 1.4 -Post Debridement (cm) - Depth 0.1 0.1 -Total Square (Post) (cm) 2.80 2.80 -Area of Debridement (cm) - Length 2.0 2.0 -Area of Debridement (cm) - Width 1.4 1.4 -Total Square (Area) (cm) 2.80 2.80 -Tunneling No No -Undermining/Tunneling No No -Circular Undermining No No -Wound/Ulcer Outcome Not Healed Not Healed -Ulcer Cleansing Rinsed/ Rinsed/ Irrigated with Irrigated with Saline Saline -Foul Odor after Cleansing No No -Bioengineered Tissue No No -Bleeding Controlled with Pressure Pressure -Treatment Response Procedure Procedure Tolerated Well Tolerated Well -Debridement - Subq, 1st 20sq cm No No #7 Right 1st Toe -Time 14:24 14:25 -Correct Patient Yes Yes -Correct Side, Site, Position Yes Yes -Correct Procedure Yes Yes -Procedure Performed Yes Yes -Type of Procedure Debridement Debridement -Clinical Debridement Subcutaneous Subcutaneous -Tissue Removed Subcutaneous Subcutaneous -Post Debridement (cm) - Length 1.0 0.5 -Post Debridement (cm) - Width 2.0 1.5 -Post Debridement (cm) - Depth 0.1 0.1 -Total Square (Post) (cm) 2.00 0.75 -Area of Debridement (cm) - Length 1.0 0.5 -Area of Debridement (cm) - Width 2.0 1.5 -Total Square (Area) (cm) 2.00 0.75 -Tunneling No No -Undermining/Tunneling No No -Circular Undermining No No -Wound/Ulcer Outcome Not Healed Not Healed -Ulcer Cleansing Rinsed/ Rinsed/ Irrigated with Irrigated with Saline Saline -Foul Odor after Cleansing No No -Bioengineered Tissue No -Bleeding Controlled with Pressure Pressure -Treatment Response Procedure Procedure Tolerated Well Tolerated Well -Debridement - Subq, 1st 20sq cm No No #6 R Dorsal -Time 14:24 14:25 -Correct Patient Yes Yes -Correct Side, Site, Position Yes Yes -Correct Procedure Yes Yes -Procedure Performed Yes Yes -Type of Procedure Debridement Debridement -Clinical Debridement Subcutaneous Subcutaneous -Tissue Removed Subcutaneous Subcutaneous -Post Debridement (cm) - Length 1.5 1.2 -Post Debridement (cm) - Width 1.4 1.0 -Post Debridement (cm) - Depth 0.1 0.1 -Total Square (Post) (cm) 2.10 1.20 -Area of Debridement (cm) - Length 1.5 1.2 -Area of Debridement (cm) - Width 1.4 1.0 -Total Square (Area) (cm) 2.10 1.20 -Tunneling No No -Undermining/Tunneling No No -Circular Undermining No No -Wound/Ulcer Outcome Not Healed Not Healed -Ulcer Cleansing Rinsed/ Rinsed/ Irrigated with Irrigated with Saline Saline -Foul Odor after Cleansing No No -Bioengineered Tissue No No -Bleeding Controlled with Pressure Pressure -Treatment Response Procedure Procedure Tolerated Well Tolerated Well -Debridement - Subq, 1st 20sq cm No No #5 L wrist -Time 13:35 14:24 14:25 -Correct Patient Yes Yes Yes -Correct Side, Site, Position Yes Yes Yes -Correct Procedure Yes Yes Yes -Procedure Performed Yes Yes Yes -Type of Procedure Debridement Debridement Debridement -Clinical Debridement Subcutaneous Subcutaneous Subcutaneous -Tissue Removed Subcutaneous Subcutaneous Subcutaneous -Post Debridement (cm) - Length 1.2 0.9 0.4 -Post Debridement (cm) - Width 3.8 2.1 1.6 -Post Debridement (cm) - Depth 0.7 0.4 0.1 -Total Square (Post) (cm) 4.56 1.89 0.64 -Area of Debridement (cm) - Length 1.2 0.9 0.4 -Area of Debridement (cm) - Width 3.8 2.1 1.6 -Total Square (Area) (cm) 4.56 1.89 0.64 -Tunneling No No No -Undermining/Tunneling No No No -Circular Undermining No No No -Wound/Ulcer Outcome Not Healed Not Healed Not Healed -Ulcer Cleansing Rinsed/ Rinsed/ Rinsed/ Irrigated with Irrigated with Irrigated with Saline Saline Saline -Foul Odor after Cleansing No No No -Bioengineered Tissue No No No -Bleeding Controlled with Pressure Pressure Pressure -Treatment Response Procedure Procedure Procedure Tolerated Well Tolerated Well Tolerated Well -Debridement - Subq, 1st 20sq cm Yes No No -Debridement, SubQ, ea addt'l 20sq cm 2 or part thereof #3 R Ankle -Time 14:24 14:25 -Correct Patient Yes Yes -Correct Side, Site, Position Yes Yes -Correct Procedure Yes Yes -Procedure Performed Yes Yes -Type of Procedure Debridement Debridement -Clinical Debridement Subcutaneous Subcutaneous -Tissue Removed Subcutaneous Subcutaneous -Post Debridement (cm) - Length 1.9 1.8 -Post Debridement (cm) - Width 1.3 2.5 -Post Debridement (cm) - Depth 0.1 0.1 -Total Square (Post) (cm) 2.47 4.50 -Area of Debridement (cm) - Length 1.9 1.8 -Area of Debridement (cm) - Width 1.3 2.5 -Total Square (Area) (cm) 2.47 4.50 -Tunneling No No -Undermining/Tunneling No No -Circular Undermining No No -Wound/Ulcer Outcome Not Healed Not Healed -Ulcer Cleansing Rinsed/ Rinsed/ Irrigated with Irrigated with Saline Saline -Foul Odor after Cleansing No No -Bioengineered Tissue No No -Bleeding Controlled with Pressure Pressure -Treatment Response Procedure Procedure Tolerated Well Tolerated Well -Debridement - Subq, 1st 20sq cm No No Pain Scale: 0-10 Numeric Is Patient Pain Free? Yes Yes Yes WC - Nurse 3 - General Ulcer D/C NN Start: 04/09/22 13:29 Freq: Status: Active Protocol: Activity Type Activity Date Activity User E-sign Co-sign Detail Recorded Client Recorded Date Recorded By Document 04/09/22 15:05 [place] [id number] 04/09/22 15:16 [place] Document 04/16/22 14:59 [place] [id number] 04/16/22 15:01 [place] Document 04/23/22 14:53 [facility] [id number] 04/23/22 14:57 [facility] 04/09/22 04/16/22 04/23/22 15:05 14:59 14:53 [facility] Center Nurse 3 #4 L ankle -Ulcer Cleansing Soap and Water Rinsed/ Rinsed/ Irrigated with Irrigated with Saline Saline -Foul Odor after Cleansing No No -Negative Pressure Wound Therapy N/A -Other Dressing santyl ordered. hydrogel SANTYL hydrogel placed today on wounds. -Primary Dressing Covered/Secured with Dry Gauze & Dry Gauze & Dry Gauze & Roll Gauze, Roll Gauze, Roll Gauze, Secured with Secured with Secured with Tape Tape Tape -Other Covering DRSG PER [place] RN #2 R ankle cluster -Ulcer Cleansing Soap and Water Rinsed/ Rinsed/ Irrigated with Irrigated with Saline Saline -Foul Odor after Cleansing No No -Negative Pressure Wound Therapy N/A -Other Dressing hydrogel SANTYL -Primary Dressing Covered/Secured with Dry Gauze & Dry Gauze & Dry Gauze & Roll Gauze, Roll Gauze, Roll Gauze, Secured with Secured with Secured with Tape Tape Tape -Other Covering DRSG PER [place] RN #1 R lateral foot -Ulcer Cleansing Soap and Water -Primary Dressing Covered/Secured with Dry Gauze & Roll Gauze, Secured with Tape #9 Right Achilles -Ulcer Cleansing Rinsed/ Irrigated with Saline -Foul Odor after Cleansing No -Other Dressing SANTYL -Primary Dressing Covered/Secured with Dry Gauze & Roll Gauze, Secured with Tape -Other Covering DRSG PER [place] RN #8 Right Lat Foot -Ulcer Cleansing Rinsed/ Irrigated with Saline -Foul Odor after Cleansing No -Other Dressing SANTYL -Primary Dressing Covered/Secured with Dry Gauze & Roll Gauze, Secured with Tape -Other Covering DRSG PER [place] RN #7 Right 1st Toe -Ulcer Cleansing Rinsed/ Irrigated with Saline -Foul Odor after Cleansing No -Other Dressing SANTYL -Primary Dressing Covered/Secured with Dry Gauze & Roll Gauze, Secured with Tape -Other Covering DRSG PER [place] RN #6 R Dorsal -Ulcer Cleansing Rinsed/ Irrigated with Saline -Foul Odor after Cleansing No -Other Dressing SANTYL -Primary Dressing Covered/Secured with Dry Gauze & Roll Gauze, Secured with Tape -Other Covering DRSG PER MT #5 L wrist -Ulcer Cleansing Rinsed/ Rinsed/ Irrigated with Irrigated with Saline Saline -Foul Odor after Cleansing No No -Negative Pressure Wound Therapy N/A -Primary Dressing Applied Promogran Promogran C Hydrogel ($) Marcela Matter Marcela Matter, Mepilex Border -Other Dressing DRSG PER [place] RN -Primary Dressing Covered/Secured with Dry Gauze & Dry Gauze & Roll Gauze, Roll Gauze, Secured with Secured with Tape Tape -Mepilex Border 1 -Promogran Marcela Matter 1 1 #3 R Ankle -Ulcer Cleansing Soap and Water Rinsed/ Rinsed/ Irrigated with Irrigated with Saline Saline -Foul Odor after Cleansing No No -Negative Pressure Wound Therapy N/A -Other Dressing hydrogel SANTYL -Primary Dressing Covered/Secured with Dry Gauze & Dry Gauze & Dry Gauze & Roll Gauze, Roll Gauze, Roll Gauze, Secured with Secured with Secured with Tape Tape Tape -Other Covering DRSG PER [place] RN Right -Lotion applied to leg before No compression wrap -Tubular Bandage Single Layer Single Layer Single Layer -Size of Tubigrip Used Size D Size E Size D -Size D ($) 1 1 -Size E ($) 1 Left -Tubular Bandage Single Layer Single Layer Single Layer -Size of Tubigrip Used Size D Size E Size D -Size D ($) 1 1 -Size E ($) 1 Pain Scale: 0-10 Numeric Is Patient Pain Free? Yes Yes Yes WC - Visit Discharge Discharge Condition Stable Stable Ambulatory Status Ambulatory Ambulatory Transportation Private Auto Private Auto Medication Reconcilliation completed & Yes provided to patient/care provider Clinical Summary of Care Provided Yes Additional Wound Wound debrided: R ankle cluster Laterality: Right Type of Debridement: Excisional debridement Anesthesia Used: 5% Lidocaine Gel and Cetacaine Depth: Down to and including healthy tissue and in the subcutaneous layer Percentage of wound debrided: 100 Instrument Used: 5mm curette, #10 blade and Forceps Tissue Removed: adherent slough/scab, devitalized tissue Severity: Fat Layer Exposed Amount of bleeding with debridement: Mild Bleeding Controlled with: Pressure Patient tolerated procedure: Patient tolerated procedure well Additional Wound Wound debrided: R lateral foot Laterality: Right Type of Debridement: Excisional debridement Anesthesia Used: 5% Lidocaine Gel and Cetacaine Depth: Down to and including healthy tissue and in the subcutaneous layer Percentage of wound debrided: 100 Instrument Used: 5mm curette Tissue Removed: adherent slough/scab, devitalized tissue Severity: Fat Layer Exposed Amount of bleeding with debridement: Mild Bleeding Controlled with: Pressure Patient tolerated procedure: Patient tolerated procedure well Additional Wound Wound debrided: L wrist Laterality: Left Type of Debridement: Excisional debridement Anesthesia Used: 5% Lidocaine Gel and Cetacaine Depth: Down to and including healthy tissue and in the subcutaneous layer Percentage of wound debrided: 100 Instrument Used: 5mm curette Tissue Removed: adherent slough/scab, devitalized tissue Severity: Fat Layer Exposed Amount of bleeding with debridement: Mild Bleeding Controlled with: Pressure Patient tolerated procedure: Patient tolerated procedure well Additional Wound Wound debrided: L ankle Laterality: Left Type of Debridement: Excisional debridement Anesthesia Used: 5% Lidocaine Gel and Cetacaine Depth: Down to and including healthy tissue and in the subcutaneous layer Percentage of wound debrided: 100 Instrument Used: 5mm curette Tissue Removed: adherent slough/scab, devitalized tissue Severity: Fat Layer Exposed Amount of bleeding with debridement: Mild Bleeding Controlled with: Pressure Additional Wound Wound debrided: L great toe Operative Diagnosis: healed Additional Wound Wound debrided: R great toe Laterality: Right Type of Debridement: Excisional debridement Anesthesia Used: 5% Lidocaine Gel Depth: Down to and including healthy tissue Instrument Used: 5mm curette Tissue Removed: slough, devitalized tissue Bleeding Controlled with: Pressure Patient tolerated procedure: Patient tolerated procedure well Assessment/Plan Assessment/Plan (1) 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 All of wounds with improved size from last week. All wound bases had pink granulation tissue and good bleeding. Continue santyl to all lower extremity wounds, cover with DSD/kerlix and apply tubigrips for compression. Collagen hydrogel to L wrist wound. Silicone-bordered dressing for secondary. Change dressings daily or more often as needed to keep clean and dry. Advise to adjust diet to reduce sugar/carbs and increase protein. Work towards better blood sugar control. Elevate legs when resting. Return to clinic in 1 week or sooner as needed. 04/23/22 1751 <Electronically signed by Tonia ACUNA> Cosigner Signature (if applicable): CC: ~ Signed [facility] Work Phone: [phone] 276-938703-10-2023 Progress note Author Tonia suman [facility] April 16, 2022 4:54pm Note Date/Time April 16, 2022 4:0 8pm [facility] [address] [place] [address] Progress Note - Wound Care 04/16/22 1605 MR#: [id number] Acct: [id number] Name: ABELARDO IVORY Rep #:[id number] 15 : 1950 72 From: Tonia ACUNA PCP: Dr. Ezekiel Carrasco MD Status: REG RCR Location: History of Present Illness Date of Service: 04/16/22 Chief Complaint: Left wrist wound Multiple bilateral lower extremity wounds History of Wound: Patient is new to [facility] but known to me from the vascular surgery clinic. 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 Patient was understandably quite ill following this and hospitalized for some time during which he had significant BLE edema at which point the wounds began to appear. They were overall stable for some time, and then he was hospitalized a few weeks ago for pneumonia, had increased BLE edema again, and wounds worsened/new ones appeared. Since then, he feels they are improved in appearance. The wrist wound appeared during the initial hospitalization for AAA, at that time he describes it initially as a hematoma which eventually developed into this chronic wound. Last week, he had significant erythema and pain in his RLE and was started on antibiotics. Venous duplex was also obtained to r/o DVT and this was negative. Erythema did improve with antibiotics. Patient still has pain in bilateral feet,worse right than left; bilateral feet/ankles are intermittently hypersensitive to touch. He notes continued mild BLE edema. He does not currently wear compression. Subjective Subjective Patient just picked up Santyl prescription earlier today. Has been washing lowerextremity wounds with soap and water daily, patting dry, and keeping covered with DSD. He has been applying marcela and DSD to L wrist wound as directed. He finds the L wrist difficult to wrap and the dressing falls off easily. Otherwise, he is doing very well changing the dressings himself at home. He denies any new/worsening pain or erythema, F/C, N/V. Objective Data Objective Data Vital Signs: Vital Signs Temp Pulse Resp BP O2 Del Method O2 Flow Rate 97.2 F L 58 L 18 155/78 H Nasal Cannula 2 04/16/22 14:11 04/16/22 14:11 04/16/22 14:11 04/16/22 14:11 04/16/22 14:11 04/16/22 14:11 Oxygen Flow Rate (L/min) 2 Oxygen Delivery Method Nasal Cannula Charges/Coding Wound Center CF Procedures [id number]: 32026 RMVL DEVITAL TIS 20 CM/< Multi Select Codes Wound Center CF Procedures [id number]: [id number] RMVL DEVITAL TIS 20 CM/< Physical Exam Const alert, oriented x3 and no apparent distress General Appearance: cooperative, comfortable and well developed HEENT normocephalic, head/scalp atraumatic, hearing grossly normal bilaterally, external ears normal and external nose normal Eyes EOMs intact bilaterally General Eye: normal appearance of both eyes Neck full ROM General: normal visual inspection and trachea midline Resp normal respiratory effort, no retractions and no use of accessory muscles Effort and Inspection: able to speak in complete sentences and symmetric chest movement Cardio regular rate and regular rhythm Peripheral Pulses: brachial pulses present and radial pulses present Extremity Extremity Narrative: Mild bilateral lower extremity edema, right worse than left. Patient had significant sensitivity to light touch, especially on R foot. Skin Wounds: wounds noted Wound Narrative: Multiple bilateral lower ankle/foot wounds with significant slough but wound base with pink granulation tissue. Good bleeding. No significant erythema, foul odor, drainage noted. Left wrist wound with pink granulation tissue at base, moderate slough. 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: R cherry sorter lower leg Laterality: Right Type of Debridement: Excisional debridement Anesthesia Used: 5% Lidocaine Gel and Cetacaine Depth: Down to and including healthy tissue and in the subcutaneous layer Percentage of wound debrided: 100 Instrument Used: 5mm curette Tissue Removed: adherent slough/scab, devitalized tissue Severity: Fat Layer Exposed Amount of bleeding with debridement: Mild Bleeding Controlled with: Pressure Patient tolerated procedure: Patient tolerated procedure well Post-Debridement Measurements and Additional Note: Post-Debridement Measurements/Treatment - Nurse 1 - General Ulcer Assessment Start: 04/09/22 13:29 Freq: Status: Active Protocol: JC Activity Type Activity Date Activity User E-sign Co-sign Detail Recorded Client Recorded Date Recorded By Document 04/09/22 13:30 MD [id number] 04/09/22 13:42 MD Document 04/16/22 14:11 MD [id number] 04/16/22 14:21 MD 04/09/22 04/16/22 13:30 14:11 - Today's Visit Information Type of service Initial Visit Follow-up Visit (Physician/MECHANIC ) Arrival Mode Ambulatory Ambulatory Transfer Assistance None Patient Identification Verified (Name & Yes Yes ) Patient Requires Transmission-Based No No Precautions Safety Precautions NA Finger Stick Blood Sugar(mg/dl) (if 149 indicated): Blood Sugar Stated by Patient Vital Signs Temperature (97.8 F-99.1 F) 97.2 F L Temperature Source Temporal Pulse Rate (60-100) 58 L Pulse Location Monitor Respiratory Rate (12-18) 18 Respiratory rate source Observation Oxygen Delivery Method Nasal Cannula O2 L/MIN (L/min) 2 Blood Pressure (90/60-120/80) 155/78 H Blood Pressure Mean (mm Hg) 103 Source Monitor Position Sitting Blood Pressure Location Right Arm History Since Last Visit- (Skip if this is Patient's initial visit) Have you changed medications since your No last visit? Any new allergies or adverse reactions No Had a fall/change in ADL's that may No increase risk of falls Signs or symptoms of abuse and/or No neglect since last visit Have you been in the hospital since your No last visit? Has dressing in place as prescribed Yes Has compression in place as prescribed No Has offloadiing in place as prescribed No Experienced any changes in pain level or No management Left Footwear Regular Shoe Right Footwear Regular Shoe Pain Scale: 0-10 Numeric Is Patient Pain Free? No Yes WC - Nurse 1 - General Ulcer Measurement Start: 04/09/22 13:29 Freq: Status: Active Protocol: Activity Type Activity Date Activity User E-sign Co-sign Detail Recorded Client Recorded Date Recorded By Document 04/09/22 13:30 MD [id number] 04/09/22 13:42 [place] Document 04/16/22 14:11 MD [id number] 04/16/22 14:21 [place] 04/09/22 04/16/22 13:30 14:11 Wound Center Nurse 1 #1 R lateral foot -Combined with other wound No -Current Size (cm) - Length 2.2 -Current Size (cm) - Width 4.5 -Current Size (cm) - Depth 0.1 -Total Square Cm 9.90 -Date of Last Picture (Recall this 04/09/22 field) -Photo Taken Yes -Tunneling No -Undermining/Tunneling No -Circular Undermining No -Change in Wound Grade/Stage No -Exudate Amt None Present -Wound Margin Distinct, Outline Attached -Granulation Amt None Present (0 %) -Granulation Quality N/A -Slough/Fibrin No -Necrosis Amt Large (67-100%) -Necrotic Tissue Type Eschar -Structure Exposed N/A -Texture (Kirstie-wound Skin Appearance) No Abnormality, Assessed -Moisture (Kirstie-wound Skin Appearance) No Abnormality, Assessed -Color (Kirstie-wound Skin Appearance) No Abnormality, Assessed -Temperature (Kirstie-wound Skin No Abnormality Appearance) (Pt Warm) -Tenderness on Palpation (Kirstie-wound No Skin Appearance) -Ulcer Cleansing Rinsed/ Irrigated with Saline -Foul Odor after Cleansing No -Anesthetic Used 4% Lidocaine Solution,5% Lidocaine Gel -Wound Comment(s) scabbed #5 L wrist -Combined with other wound No No -Current Size (cm) - Length 1.1 0.5 -Current Size (cm) - Width 3.2 2.1 -Current Size (cm) - Depth 0.1 0.3 -Total Square Cm 3.52 1.05 -Photo Taken Yes Yes -Tunneling No No -Undermining/Tunneling No No -Circular Undermining No No -Change in Wound Grade/Stage No -Exudate Amt None Present Medium -Exudate Type Serosanguineous -Wound Margin Distinct, Distinct, Outline Outline Attached Attached -Granulation Amt None Present (0 Medium (34-66%) %) -Granulation Quality Naomi -Slough/Fibrin Yes Yes -Necrosis Amt Large (67-100%) Large (67-100%) -Necrotic Tissue Type Adherent Slough Adherent Slough -Structure Exposed N/A N/A -Texture (Kirstie-wound Skin Appearance) No Abnormality, Assessed Assessed -Moisture (Kirstie-wound Skin Appearance) Assessed,Dry/ Dry/Scaly Scaly -Color (Kirstie-wound Skin Appearance) No Abnormality, Assessed Assessed -Temperature (Kirstie-wound Skin No Abnormality No Abnormality Appearance) (Pt Warm) (Pt Warm) -Tenderness on Palpation (Kirstie-wound No No Skin Appearance) -Ulcer Cleansing Rinsed/ Wound Cleanser Irrigated with Saline -Foul Odor after Cleansing No No -Anesthetic Used 4% Lidocaine 5% Lidocaine Solution,5% Gel Lidocaine Gel -Wound Comment(s) scabbed #4 L ankle -Combined with other wound No No -Current Size (cm) - Length 4 2 -Current Size (cm) - Width 4.8 1.1 -Current Size (cm) - Depth 0.1 0.1 -Total Square Cm 19.2 2.2 -Photo Taken Yes Yes -Tunneling No No -Undermining/Tunneling No No -Circular Undermining No No -Change in Wound Grade/Stage No -Exudate Amt None Present Medium -Exudate Type Serosanguineous -Wound Margin Distinct, Distinct, Outline Outline Attached Attached -Granulation Amt None Present (0 Medium (34-66%) %) -Granulation Quality N/A Naomi -Slough/Fibrin Yes Yes -Necrosis Amt Large (67-100%) Medium (34-66%) -Necrotic Tissue Type Eschar Adherent Slough -Structure Exposed N/A N/A -Texture (Kirstie-wound Skin Appearance) Assessed Assessed -Moisture (Kirstie-wound Skin Appearance) Assessed,Dry/ Assessed,Dry/ Scaly Scaly -Color (Kirstie-wound Skin Appearance) No Abnormality, Assessed Not Assessed -Temperature (Kirstie-wound Skin No Abnormality No Abnormality Appearance) (Pt Warm) (Pt Warm) -Tenderness on Palpation (Kirstie-wound No No Skin Appearance) -Ulcer Cleansing Rinsed/ Wound Cleanser Irrigated with Saline -Foul Odor after Cleansing No No -Anesthetic Used 4% Lidocaine 5% Lidocaine Solution,5% Gel Lidocaine Gel -Wound Comment(s) scabbed #3 R Post -Combined with other wound No No -Current Size (cm) - Length 8 1.8 -Current Size (cm) - Width 2 1 -Current Size (cm) - Depth 0.1 0.1 -Total Square Cm 16 1.8 -Date of Last Picture (Recall this 04/09/22 field) -Photo Taken Yes Yes -Tunneling No No -Undermining/Tunneling No No -Circular Undermining No No -Change in Wound Grade/Stage No -Exudate Amt None Present Medium -Exudate Type Serosanguineous -Wound Margin Distinct, Distinct, Outline Outline Attached Attached -Granulation Amt None Present (0 Medium (34-66%) %) -Granulation Quality N/A Naomi -Slough/Fibrin Yes Yes -Necrosis Amt Large (67-100%) Large (67-100%) -Necrotic Tissue Type Eschar Adherent Slough -Structure Exposed N/A N/A -Texture (Kirstie-wound Skin Appearance) No Abnormality, Assessed Assessed -Moisture (Kirstie-wound Skin Appearance) Assessed,Dry/ Dry/Scaly Scaly -Color (Kirstie-wound Skin Appearance) No Abnormality, Assessed Assessed -Temperature (Kirstie-wound Skin No Abnormality No Abnormality Appearance) (Pt Warm) (Pt Warm) -Tenderness on Palpation (Kirstie-wound No No Skin Appearance) -Ulcer Cleansing Rinsed/ Wound Cleanser Irrigated with Saline -Foul Odor after Cleansing No No -Anesthetic Used 4% Lidocaine 5% Lidocaine Solution,5% Gel Lidocaine Gel -Wound Comment(s) scabbed #2 R ankle cluster -Combined with other wound No No -Current Size (cm) - Length 6.5 6.5 -Current Size (cm) - Width 5 14 -Current Size (cm) - Depth 0.1 0.1 -Total Square Cm 32.5 91.0 -Date of Last Picture (Recall this 04/09/22 field) -Photo Taken Yes -Tunneling No No -Undermining/Tunneling No No -Circular Undermining No No -Change in Wound Grade/Stage No -Exudate Amt None Present Medium -Exudate Type Serosanguineous -Wound Margin Distinct, Outline Attached -Granulation Amt None Present (0 Medium (34-66%) %) -Granulation Quality N/A Naomi -Slough/Fibrin Yes Yes -Necrosis Amt Large (67-100%) Large (67-100%) -Necrotic Tissue Type Eschar Adherent Slough -Structure Exposed N/A N/A -Texture (Kirstie-wound Skin Appearance) No Abnormality, Assessed Assessed -Moisture (Kirstie-wound Skin Appearance) Assessed,Dry/ Dry/Scaly Scaly -Color (Kirstie-wound Skin Appearance) No Abnormality, Assessed Assessed -Temperature (Kirstie-wound Skin No Abnormality No Abnormality Appearance) (Pt Warm) (Pt Warm) -Tenderness on Palpation (Kirstie-wound No No Skin Appearance) -Ulcer Cleansing Rinsed/ Wound Cleanser Irrigated with Saline -Foul Odor after Cleansing No No -Anesthetic Used 4% Lidocaine 5% Lidocaine Solution,5% Gel Lidocaine Gel -Wound Comment(s) scabbed Lower Limb Edema Present No Yes Right Calf (cm) 30 31 Right Ankle (cm) 20.5 20.6 Left Calf (cm) 30.5 30.2 Left Ankle (cm) 19.4 19 WC - Nurse 2 - General Ulcer CM Notes Start: 04/09/22 13:29 Freq: Status: Active Protocol: Activity Type Activity Date Activity User E-sign Co-sign Detail Recorded Client Recorded Date Recorded By Document 04/09/22 15:12 PL [id number] 04/09/22 15:29 PL Document 04/16/22 15:08 PL [id number] 04/16/22 15:18 PL 04/09/22 04/16/22 15:12 15:08 Wound Center Nurse 2 #9 Right Heel -Time 14:24 -Correct Patient Yes -Correct Side, Site, Position Yes -Correct Procedure Yes -Procedure Performed Yes -Type of Procedure Debridement -Clinical Debridement Subcutaneous -Tissue Removed Subcutaneous -Post Debridement (cm) - Length 0.3 -Post Debridement (cm) - Width 0.5 -Post Debridement (cm) - Depth 0.1 -Total Square (Post) (cm) 0.15 -Area of Debridement (cm) - Length 0.3 -Area of Debridement (cm) - Width 0.5 -Total Square (Area) (cm) 0.15 -Tunneling No -Undermining/Tunneling No -Circular Undermining No -Wound/Ulcer Outcome Not Healed -Ulcer Cleansing Rinsed/ Irrigated with Saline -Foul Odor after Cleansing No -Bioengineered Tissue No -Bleeding Controlled with Pressure -Treatment Response Procedure Tolerated Well -Debridement - Subq, 1st 20sq cm Yes -Debridement, SubQ, ea addt'l 20sq cm 1 or part thereof #8 Right Lat LE -Time 14:24 -Correct Patient Yes -Correct Side, Site, Position Yes -Correct Procedure Yes -Procedure Performed Yes -Type of Procedure Debridement -Clinical Debridement Subcutaneous -Tissue Removed Subcutaneous -Post Debridement (cm) - Length 2.0 -Post Debridement (cm) - Width 1.4 -Post Debridement (cm) - Depth 0.1 -Total Square (Post) (cm) 2.80 -Area of Debridement (cm) - Length 2.0 -Area of Debridement (cm) - Width 1.4 -Total Square (Area) (cm) 2.80 -Tunneling No -Undermining/Tunneling No -Circular Undermining No -Wound/Ulcer Outcome Not Healed -Ulcer Cleansing Rinsed/ Irrigated with Saline -Foul Odor after Cleansing No -Bioengineered Tissue No -Bleeding Controlled with Pressure -Treatment Response Procedure Tolerated Well -Debridement - Subq, 1st 20sq cm No #7 Right 1st Toe -Time 14:24 -Correct Patient Yes -Correct Side, Site, Position Yes -Correct Procedure Yes -Procedure Performed Yes -Type of Procedure Debridement -Clinical Debridement Subcutaneous -Tissue Removed Subcutaneous -Post Debridement (cm) - Length 1.0 -Post Debridement (cm) - Width 2.0 -Post Debridement (cm) - Depth 0.1 -Total Square (Post) (cm) 2.00 -Area of Debridement (cm) - Length 1.0 -Area of Debridement (cm) - Width 2.0 -Total Square (Area) (cm) 2.00 -Tunneling No -Undermining/Tunneling No -Circular Undermining No -Wound/Ulcer Outcome Not Healed -Ulcer Cleansing Rinsed/ Irrigated with Saline -Foul Odor after Cleansing No -Bioengineered Tissue No -Bleeding Controlled with Pressure -Treatment Response Procedure Tolerated Well -Debridement - Subq, 1st 20sq cm No #6 R Dorsal -Time 14:24 -Correct Patient Yes -Correct Side, Site, Position Yes -Correct Procedure Yes -Procedure Performed Yes -Type of Procedure Debridement -Clinical Debridement Subcutaneous -Tissue Removed Subcutaneous -Post Debridement (cm) - Length 1.5 -Post Debridement (cm) - Width 1.4 -Post Debridement (cm) - Depth 0.1 -Total Square (Post) (cm) 2.10 -Area of Debridement (cm) - Length 1.5 -Area of Debridement (cm) - Width 1.4 -Total Square (Area) (cm) 2.10 -Tunneling No -Undermining/Tunneling No -Circular Undermining No -Wound/Ulcer Outcome Not Healed -Ulcer Cleansing Rinsed/ Irrigated with Saline -Foul Odor after Cleansing No -Bioengineered Tissue No -Bleeding Controlled with Pressure -Treatment Response Procedure Tolerated Well -Debridement - Subq, 1st 20sq cm No #5 L wrist -Time 13:35 14:24 -Correct Patient Yes Yes -Correct Side, Site, Position Yes Yes -Correct Procedure Yes Yes -Procedure Performed Yes Yes -Type of Procedure Debridement Debridement -Clinical Debridement Subcutaneous Subcutaneous -Tissue Removed Subcutaneous Subcutaneous -Post Debridement (cm) - Length 1.2 0.9 -Post Debridement (cm) - Width 3.8 2.1 -Post Debridement (cm) - Depth 0.7 0.4 -Total Square (Post) (cm) 4.56 1.89 -Area of Debridement (cm) - Length 1.2 0.9 -Area of Debridement (cm) - Width 3.8 2.1 -Total Square (Area) (cm) 4.56 1.89 -Tunneling No No -Undermining/Tunneling No No -Circular Undermining No No -Wound/Ulcer Outcome Not Healed Not Healed -Ulcer Cleansing Rinsed/ Rinsed/ Irrigated with Irrigated with Saline Saline -Foul Odor after Cleansing No No -Bioengineered Tissue No No -Bleeding Controlled with Pressure Pressure -Treatment Response Procedure Procedure Tolerated Well Tolerated Well -Debridement - Subq, 1st 20sq cm Yes No -Debridement, SubQ, ea addt'l 20sq cm 2 or part thereof #4 L ankle -Time 13:35 14:24 -Correct Patient Yes Yes -Correct Side, Site, Position Yes Yes -Correct Procedure Yes Yes -Procedure Performed Yes Yes -Type of Procedure Debridement Debridement -Clinical Debridement Subcutaneous Subcutaneous -Tissue Removed Subcutaneous Subcutaneous -Post Debridement (cm) - Length 4.8 4.0 -Post Debridement (cm) - Width 1.7 4.5 -Post Debridement (cm) - Depth 0.2 0.1 -Total Square (Post) (cm) 8.16 18.00 -Area of Debridement (cm) - Length 4.8 4.0 -Area of Debridement (cm) - Width 1.7 4.5 -Total Square (Area) (cm) 8.16 18.00 -Tunneling No No -Undermining/Tunneling No No -Circular Undermining No No -Wound/Ulcer Outcome Not Healed Not Healed -Ulcer Cleansing Rinsed/ Rinsed/ Irrigated with Irrigated with Saline Saline -Foul Odor after Cleansing No No -Bioengineered Tissue No No -Bleeding Controlled with Pressure -Treatment Response Procedure Tolerated Well -Debridement - Subq, 1st 20sq cm No No #3 R Post -Time 14:24 -Correct Patient Yes -Correct Side, Site, Position Yes -Correct Procedure Yes -Procedure Performed Yes -Type of Procedure Debridement -Clinical Debridement Subcutaneous -Tissue Removed Subcutaneous -Post Debridement (cm) - Length 1.9 -Post Debridement (cm) - Width 1.3 -Post Debridement (cm) - Depth 0.1 -Total Square (Post) (cm) 2.47 -Area of Debridement (cm) - Length 1.9 -Area of Debridement (cm) - Width 1.3 -Total Square (Area) (cm) 2.47 -Tunneling No -Undermining/Tunneling No -Circular Undermining No -Wound/Ulcer Outcome Not Healed -Ulcer Cleansing Rinsed/ Irrigated with Saline -Foul Odor after Cleansing No -Bioengineered Tissue No -Bleeding Controlled with Pressure -Treatment Response Procedure Tolerated Well -Debridement - Subq, 1st 20sq cm No #2 R ankle cluster -Time 14:24 -Correct Patient Yes -Correct Side, Site, Position Yes -Correct Procedure Yes -Procedure Performed Yes -Type of Procedure Debridement -Clinical Debridement Subcutaneous -Tissue Removed Subcutaneous -Post Debridement (cm) - Length 1.8 -Post Debridement (cm) - Width 3.0 -Post Debridement (cm) - Depth 0.1 -Total Square (Post) (cm) 5.40 -Area of Debridement (cm) - Length 1.8 -Area of Debridement (cm) - Width 3.0 -Total Square (Area) (cm) 5.40 -Tunneling No -Undermining/Tunneling No -Circular Undermining No -Wound/Ulcer Outcome Not Healed -Ulcer Cleansing Rinsed/ Irrigated with Saline -Foul Odor after Cleansing No -Bioengineered Tissue No -Bleeding Controlled with Pressure -Treatment Response Procedure Tolerated Well -Debridement - Subq, 1st 20sq cm No Pain Scale: 0-10 Numeric Is Patient Pain Free? Yes Yes WC - Nurse 3 - General Ulcer D/C NN Start: 04/09/22 13:29 Freq: Status: Active Protocol: Activity Type Activity Date Activity User E-sign Co-sign Detail Recorded Client Recorded Date Recorded By Document 04/09/22 15:05 MT [id number] 04/09/22 15:16 MT Document 04/16/22 14:59 AK [id number] 04/16/22 15:01 AK 04/09/22 04/16/22 15:05 14:59 Wound Care Center Nurse 3 #1 R lateral foot -Ulcer Cleansing Soap and Water -Primary Dressing Covered/Secured with Dry Gauze & Roll Gauze, Secured with Tape #5 L wrist -Ulcer Cleansing Rinsed/ Irrigated with Saline -Foul Odor after Cleansing No -Negative Pressure Wound Therapy N/A -Primary Dressing Applied Promogran Promogran Marcela Matter Marcela Matter, Mepilex Border -Primary Dressing Covered/Secured with Dry Gauze & Roll Gauze, Secured with Tape -Mepilex Border 1 -Promogran Marcela Matter 1 1 #4 L ankle -Ulcer Cleansing Soap and Water Rinsed/ Irrigated with Saline -Foul Odor after Cleansing No -Negative Pressure Wound Therapy N/A -Other Dressing santyl ordered. hydrogel hydrogel placed today on wounds. -Primary Dressing Covered/Secured with Dry Gauze & Dry Gauze & Roll Gauze, Roll Gauze, Secured with Secured with Tape Tape #3 R Post -Ulcer Cleansing Soap and Water Rinsed/ Irrigated with Saline -Foul Odor after Cleansing No -Negative Pressure Wound Therapy N/A -Other Dressing hydrogel -Primary Dressing Covered/Secured with Dry Gauze & Dry Gauze & Roll Gauze, Roll Gauze, Secured with Secured with Tape Tape #2 R ankle cluster -Ulcer Cleansing Soap and Water Rinsed/ Irrigated with Saline -Foul Odor after Cleansing No -Negative Pressure Wound Therapy N/A -Other Dressing hydrogel -Primary Dressing Covered/Secured with Dry Gauze & Dry Gauze & Roll Gauze, Roll Gauze, Secured with Secured with Tape Tape Right -Lotion applied to leg before No compression wrap -Tubular Bandage Single Layer Single Layer -Size of Tubigrip Used Size D Size E -Size D ($) 1 -Size E ($) 1 Left -Tubular Bandage Single Layer Single Layer -Size of Tubigrip Used Size D Size E -Size D ($) 1 -Size E ($) 1 Pain Scale: 0-10 Numeric Is Patient Pain Free? Yes Yes WC - Visit Discharge Discharge Condition Stable Ambulatory Status Ambulatory Transportation Private Auto Medication Reconcilliation completed & Yes provided to patient/care provider Clinical Summary of Care Provided Yes Additional Wound Wound debrided: R ankle cluster Laterality: Right Type of Debridement: Excisional debridement Anesthesia Used: 5% Lidocaine Gel and Cetacaine Depth: Down to and including healthy tissue and in the subcutaneous layer Percentage of wound debrided: 100 Instrument Used: 5mm curette Tissue Removed: adherent slough/scab, devitalized tissue Severity: Fat Layer Exposed Amount of bleeding with debridement: Mild Bleeding Controlled with: Pressure Patient tolerated procedure: Patient tolerated procedure well Additional Wound Wound debrided: R lateral foot Laterality: Right Type of Debridement: Excisional debridement Anesthesia Used: 5% Lidocaine Gel and Cetacaine Depth: Down to and including healthy tissue and in the subcutaneous layer Percentage of wound debrided: 100 Instrument Used: 5mm curette Tissue Removed: adherent slough/scab, devitalized tissue Severity: Fat Layer Exposed Amount of bleeding with debridement: Mild Bleeding Controlled with: Pressure Patient tolerated procedure: Patient tolerated procedure well Additional Wound Wound debrided: L wrist Laterality: Left Type of Debridement: Excisional debridement Anesthesia Used: 5% Lidocaine Gel and Cetacaine Depth: Down to and including healthy tissue and in the subcutaneous layer Percentage of wound debrided: 100 Instrument Used: 5mm curette Tissue Removed: adherent slough/scab, devitalized tissue Severity: Fat Layer Exposed Amount of bleeding with debridement: Mild Bleeding Controlled with: Pressure Patient tolerated procedure: Patient tolerated procedure well Additional Wound Wound debrided: L ankle Laterality: Left Type of Debridement: Excisional debridement Anesthesia Used: 5% Lidocaine Gel and Cetacaine Depth: Down to and including healthy tissue and in the subcutaneous layer Percentage of wound debrided: 100 Instrument Used: 5mm curette Tissue Removed: adherent slough/scab, devitalized tissue Severity: Fat Layer Exposed Amount of bleeding with debridement: Mild Bleeding Controlled with: Pressure Additional Wound Wound debrided: L great toe Laterality: Left Type of Debridement: Excisional debridement Anesthesia Used: 5% Lidocaine Gel Depth: Down to and including healthy tissue Percentage of wound debrided: 100 Instrument Used: 5mm curette Tissue Removed: slough, devitalized tissue Amount of bleeding with debridement: Mild Bleeding Controlled with: Pressure Patient tolerated procedure: Patient tolerated procedure well Assessment/Plan Assessment/Plan (1) 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 All of wound with improved appearance from last week, was able to remove more of the adherent scabs despite patient not yet applying santyl. All wound bases had pink granulation tissue and good bleeding. Apply santyl to all lower extremity wounds, cover with DSD/kerlix and apply tubigrips for compression. Continue moistened promogran marcela to L wrist wound. Will switch to silicone-bordered dressing for secondary, hopefully this will be easier for patient to apply and will stay in place better than kerliz wrap. Change dressings daily or more often as needed to keep clean and dry. Advise to adjust diet to reduce sugar/carbs and increase protein. Work towards better blood sugar control. Elevate legs when resting. Return to clinic in 1 week or sooner as needed. 04/16/22 1654 <Electronically signed by Tonia ACUNA> Cosigner Signature (if applicable): CC: ~ Signed [facility] Work Phone: [phone] 388-842303-03-2023 History and physical note Author Tonia Jenkins [facility] April 09, 2022 9:56pm Note Date/Time April 09, 2022 9:12 pm [facility] [address] [place] [address] H&P Exam - Wound Care 04/09/222107 MR#: [id number] Acct: [id number] Name: ABELARDO IVORY Rep #:[id number] 13 : 1950 72 From: Tonia ACUNA PCP: Dr. Ezekiel Carrasco MD Status: REG R Location: History of Present Illness Date of Service: 04/09/22 Chief Complaint: Left wrist wound Multiple bilateral lower extremity wounds History of Wound: Patient is new to [facility] but known to me from the vascular surgery clinic. 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 Patient was understandably quite ill following this and hospitalized for some time during which he had significant BLE edema at which point the wounds began to appear. They were overall stable for some time, and then he was hospitalized a few weeks ago for pneumonia, had increased BLE edema again, and wounds worsened/new ones appeared. Since then, he feels they are improved in appearance. The wrist wound appeared during the initial hospitalization for AAA, at that time he describes it initially as a hematoma which eventually developed into this chronic wound. Last week, he had significant erythema and pain in his RLE and was started on antibiotics. Venous duplex was also obtained to r/o DVT and this was negative. Erythema did improve with antibiotics. Patient still has pain in bilateral feet,worse right than left; bilateral feet/ankles are intermittently hypersensitive to touch. He notes continued mild BLE edema. He does not currently wear compression. [facility] Medical History Abdominal aortic aneurysm (AAA) Anemia Arthritis Atherosclerotic heart disease of lummi coronary artery without angina pectoris Bilateral inguinal hernia Carotid stenosis, bilateral Chronic kidney insufficiency Cough Essential hypertension Hyperlipidemia Intention tremor Left carotid bruit Nonrheumatic aortic (valve) stenosis Pleural effusion PUD (peptic ulcer disease) Secondary pulmonary arterial hypertension Stage 3b chronic kidney disease (CKD) Subcutaneous mass of back Thrombocytopenia Tobacco dependence Home Medications albuterol sulfate 90 mcg/actuation aerosol inhaler 2 puff inhalation Q4H PRN Shortness Of Breath 03/14/19 [History Last Taken 03/02/22] acetaminophen 325 mg tablet 650 mg PO Q4H PRN Pain 01/06/22 [History Last Taken 02/16/22] albuterol sulfate 2.5 mg/3 mL (0.083 %) solution for nebulization 2.5 mg inhalation 4X/DAY PRN Shortness Of Breath 03/02/22 [History Last Taken 03/02/22] aspirin 81 mg tablet,delayed release 81 mg PO DAILY heart health 03/02/22 [History Last Taken 03/02/22] cholecalciferol (vitamin D3) 25 mcg (1,000 unit) tablet 25 mcg PO DAILY supplement 03/02/22 [History Last Taken 03/02/22] fluticasone propionate 50 mcg/actuation nasal spray,suspension 2 spray intranasal QHS congestion 03/02/22 [History Last Taken Unknown] rosuvastatin 5 mg tablet (Crestor) 5 mg PO DAILY cholesterol 03/02/22 [History Last Taken 03/02/22] spironolactone 25 mg tablet 25 mg PO DAILY #90 tabs 03/19/22 [Rx Last Taken Unknown] furosemide 40 mg tablet 40 mg PO BID #180 tabs 03/23/22 [Rx Last Taken Unknown] Allergy/AdvReac Type Severity Reaction Status Date / Time No Known Allergies Allergy Verified 03/30/22 08:27 Family History Sister Asthma Mother Arthritis Diabetes Brother Cancer Unsure what kind- just a lump on his neck Surgical History 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) History of aortic valve replacement (02/12/19) History of left heart catheterization (11/27/18) No history of previous surgery S/P AAA repair Social History Smoking Status: Former smoker quit date: 12/28/21 pack-years: 58 quit status: has quit before alcohol intake: never substance use type: does not use caffeine: Yes Type: coffee Number of servings: 3 what type of physical activity do you participate in: other frequency: 3-4 times per week seatbelt use: always ROS Constitutional Constitutional: Reports weakness; Denies change in weight, chills, difficulty sleeping, fatigue, fever(s), frequent falls, lethargy or night sweats Eyes Eyes: Denies blindness, blurry vision, change in vision, eye pain or ptosis ENT HEENT: Denies abnormal hearing, change in voice, hearing loss, loss taste/smell or vertigo Cardiovascular Cardiovascular: Reports dyspnea on exertion; Denies abdominal pain, chest pain, claudication, cold extremities, cyanosis, diaphoresis, dyspnea, fatigue, hypertension, irregular heart rhythm, leg edema, leg ulcers, orthopnea, palpitations, radiating jaw, neck or arm pain or syncope Respiratory/Chest Respiratory/Chest: Denies cough, dyspnea, hemoptysis, nail bed cyanosis, kirstie- oral cyanosis, portable oxygen @ home, productive cough or wheezing Gastrointestinal Gastrointestinal: Denies abdominal pain, change in bowel habits, change in stoolcharacter, coffee ground emesis, melena, rectal bleeding or weight changes Genitourinary Genitourinary: Denies abdominal discomfort, burning urination, difficulty urinating or flank pain Musculoskeletal Musculoskeletal: Reports joint pain; Denies abnormal gait, difficulty walking, muscle cramps, muscle weakness or numbness Integumentary Integumentary: Denies change in pigmentation, changing lesions, erythema, lesions, rash, skin ulcer, unusual bruising or wounds Neurologic Neurologic: Denies abnormal gait, abnormal movements, abnormal speech, behavior changes, frequent falls, syncope, tingling or weakness Psychiatric Psychiatric: Denies behavioral changes, cognitive impairment or depression Endocrine Endocrinology: Denies change in body appearance, cold intolerance, excessive sweating, flushing, heat intolerance, palpitations, polydipsia, polyphagia or polyuria Hematologic/Lymphatic Hematologic/Lymphatic: Denies anemia, easy bleeding, easy bruising or lymphadenopathy Allergic/Immunologic Allergic/Immunologic: Denies seasonal rhinorrhea, throat swelling, tongue swelling, hives or asthma Physical Exam Const alert, oriented x3 and no apparent distress General Appearance: cooperative, comfortable and well developed HEENT normocephalic, head/scalp atraumatic, hearing grossly normal bilaterally, external ears normal and external nose normal Eyes EOMs intact bilaterally General Eye: normal appearance of both eyes Neck full ROM General: normal visual inspection and trachea midline Resp normal respiratory effort, no retractions and no use of accessory muscles Effort and Inspection: able to speak in complete sentences and symmetric chest movement Cardio regular rate and regular rhythm Peripheral Pulses: brachial pulses present and radial pulses present Extremity Extremity Narrative: Mild bilateral lower extremity edema, right worse than left. Patient had significant sensitivity to light touch, especially on R foot. Skin Wounds: wounds noted Wound Narrative: Multiple bilateral lower ankle/foot wounds with significant adherent slough/scabs, most revealed bases with pink granulation tissue and further slough. Good bleeding. No significant erythema, foul odor, drainage noted. Left wrist wound with pink granulation tissue at base, moderate slough. Debridement Note Debridement Note Wound debrided: R cherry sorter lower leg Laterality: Right Type of Debridement: Excisional debridement Anesthesia Used: 5% Lidocaine Gel and Cetacaine Depth: Down to and including healthy tissue and in the subcutaneous layer Percentage of wound debrided: 100 Instrument Used: 5mm curette, #10 blade and Forceps Tissue Removed: adherent slough/scab, devitalized tissue Severity: Fat Layer Exposed Amount of bleeding with debridement: Mild Bleeding Controlled with: Pressure Patient tolerated procedure: Patient tolerated procedure well Post-Debridement Measurements and Additional Note: Post-Debridement Measurements/Treatment - Nurse 1 - General Ulcer Assessment Start: 04/09/22 13:29 Freq: Status: Active Protocol: JC Activity Type Activity Date Activity User E-sign Co-sign Detail Recorded Client Recorded Date Recorded By Document 04/09/22 13:30 LYNETTE [id number] 04/09/22 13:42 LYNETTE 04/09/22 13:30 - Today's Visit Information Type of service Initial Visit Arrival Mode Ambulatory Patient Identification Verified (Name & Yes ) Patient Requires Transmission-Based No Precautions Safety Precautions NA History Since Last Visit- (Skip if this is Patient's initial visit) Left Footwear Regular Shoe Right Footwear Regular Shoe Pain Scale: 0-10 Numeric Is Patient Pain Free? No WC - Nurse 1 - General Ulcer Measurement Start: 04/09/22 13:29 Freq: Status: Active Protocol: Activity Type Activity Date Activity User E-sign Co-sign Detail Recorded Client Recorded Date Recorded By Document 04/09/22 13:30 LYNETTE [id number] 04/09/22 13:42 AK 04/09/22 13:30 Wound Center Nurse 1 #3 R Post -Combined with other wound No -Current Size (cm) - Length 8 -Current Size (cm) - Width 2 -Current Size (cm) - Depth 0.1 -Total Square Cm 16 -Date of Last Picture (Recall this 04/09/22 field) -Photo Taken Yes -Tunneling No -Undermining/Tunneling No -Circular Undermining No -Change in Wound Grade/Stage No -Exudate Amt None Present -Wound Margin Distinct, Outline Attached -Granulation Amt None Present (0 %) -Granulation Quality N/A -Slough/Fibrin Yes -Necrosis Amt Large (67-100%) -Necrotic Tissue Type Eschar -Structure Exposed N/A -Texture (Kirstie-wound Skin Appearance) No Abnormality, Assessed -Moisture (Kirstie-wound Skin Appearance) Assessed,Dry/ Scaly -Color (Kirstie-wound Skin Appearance) No Abnormality, Assessed -Temperature (Kirstie-wound Skin No Abnormality Appearance) (Pt Warm) -Tenderness on Palpation (Kirstie-wound No Skin Appearance) -Ulcer Cleansing Rinsed/ Irrigated with Saline -Foul Odor after Cleansing No -Anesthetic Used 4% Lidocaine Solution,5% Lidocaine Gel -Wound Comment(s) scabbed #2 R ankle cluster -Combined with other wound No -Current Size (cm) - Length 6.5 -Current Size (cm) - Width 5 -Current Size (cm) - Depth 0.1 -Total Square Cm 32.5 -Date of Last Picture (Recall this 04/09/22 field) -Tunneling No -Undermining/Tunneling No -Circular Undermining No -Change in Wound Grade/Stage No -Exudate Amt None Present -Granulation Amt None Present (0 %) -Granulation Quality N/A -Slough/Fibrin Yes -Necrosis Amt Large (67-100%) -Necrotic Tissue Type Eschar -Structure Exposed N/A -Texture (Kirstie-wound Skin Appearance) No Abnormality, Assessed -Moisture (Kirstie-wound Skin Appearance) Assessed,Dry/ Scaly -Color (Kirstie-wound Skin Appearance) No Abnormality, Assessed -Temperature (Kirstie-wound Skin No Abnormality Appearance) (Pt Warm) -Tenderness on Palpation (Kirstie-wound No Skin Appearance) -Ulcer Cleansing Rinsed/ Irrigated with Saline -Foul Odor after Cleansing No -Anesthetic Used 4% Lidocaine Solution,5% Lidocaine Gel -Wound Comment(s) scabbed #1 R lateral foot -Combined with other wound No -Current Size (cm) - Length 2.2 -Current Size (cm) - Width 4.5 -Current Size (cm) - Depth 0.1 -Total Square Cm 9.90 -Date of Last Picture (Recall this 04/09/22 field) -Photo Taken Yes -Tunneling No -Undermining/Tunneling No -Circular Undermining No -Change in Wound Grade/Stage No -Exudate Amt None Present -Wound Margin Distinct, Outline Attached -Granulation Amt None Present (0 %) -Granulation Quality N/A -Slough/Fibrin No -Necrosis Amt Large (67-100%) -Necrotic Tissue Type Eschar -Structure Exposed N/A -Texture (Kirstie-wound Skin Appearance) No Abnormality, Assessed -Moisture (Kirstie-wound Skin Appearance) No Abnormality, Assessed -Color (Kirstie-wound Skin Appearance) No Abnormality, Assessed -Temperature (Kirstie-wound Skin No Abnormality Appearance) (Pt Warm) -Tenderness on Palpation (Kirstie-wound No Skin Appearance) -Ulcer Cleansing Rinsed/ Irrigated with Saline -Foul Odor after Cleansing No -Anesthetic Used 4% Lidocaine Solution,5% Lidocaine Gel -Wound Comment(s) scabbed #5 L wrist -Combined with other wound No -Current Size (cm) - Length 1.1 -Current Size (cm) - Width 3.2 -Current Size (cm) - Depth 0.1 -Total Square Cm 3.52 -Photo Taken Yes -Tunneling No -Undermining/Tunneling No -Circular Undermining No -Change in Wound Grade/Stage No -Exudate Amt None Present -Wound Margin Distinct, Outline Attached -Granulation Amt None Present (0 %) -Slough/Fibrin Yes -Necrosis Amt Large (67-100%) -Necrotic Tissue Type Adherent Slough -Structure Exposed N/A -Texture (Kirstie-wound Skin Appearance) No Abnormality, Assessed -Moisture (Kirstie-wound Skin Appearance) Assessed,Dry/ Scaly -Color (Kirstie-wound Skin Appearance) No Abnormality, Assessed -Temperature (Kirstie-wound Skin No Abnormality Appearance) (Pt Warm) -Tenderness on Palpation (Kirstie-wound No Skin Appearance) -Ulcer Cleansing Rinsed/ Irrigated with Saline -Foul Odor after Cleansing No -Anesthetic Used 4% Lidocaine Solution,5% Lidocaine Gel -Wound Comment(s) scabbed #4 L ankle -Combined with other wound No -Current Size (cm) - Length 4 -Current Size (cm) - Width 4.8 -Current Size (cm) - Depth 0.1 -Total Square Cm 19.2 -Photo Taken Yes -Tunneling No -Undermining/Tunneling No -Circular Undermining No -Change in Wound Grade/Stage No -Exudate Amt None Present -Wound Margin Distinct, Outline Attached -Granulation Amt None Present (0 %) -Granulation Quality N/A -Slough/Fibrin Yes -Necrosis Amt Large (67-100%) -Necrotic Tissue Type Eschar -Structure Exposed N/A -Texture (Kirstie-wound Skin Appearance) Assessed -Moisture (Kirstie-wound Skin Appearance) Assessed,Dry/ Scaly -Color (Kirstie-wound Skin Appearance) No Abnormality, Not Assessed -Temperature (Kirstie-wound Skin No Abnormality Appearance) (Pt Warm) -Tenderness on Palpation (Kirstie-wound No Skin Appearance) -Ulcer Cleansing Rinsed/ Irrigated with Saline -Foul Odor after Cleansing No -Anesthetic Used 4% Lidocaine Solution,5% Lidocaine Gel -Wound Comment(s) scabbed Lower Limb Edema Present No Right Calf (cm) 30 Right Ankle (cm) 20.5 Left Calf (cm) 30.5 Left Ankle (cm) 19.4 WC - Nurse 2 - General Ulcer CM Notes Start: 04/09/22 13:29 Freq: Status: Active Protocol: Activity Type Activity Date Activity User E-sign Co-sign Detail Recorded Client Recorded Date Recorded By Document 04/09/22 15:12 PL [id number] 04/09/22 15:29 PL 04/09/22 15:12 Wound Center Nurse 2 #5 L wrist -Time 13:35 -Correct Patient Yes -Correct Side, Site, Position Yes -Correct Procedure Yes -Procedure Performed Yes -Type of Procedure Debridement -Clinical Debridement Subcutaneous -Tissue Removed Subcutaneous -Post Debridement (cm) - Length 1.2 -Post Debridement (cm) - Width 3.8 -Post Debridement (cm) - Depth 0.7 -Total Square (Post) (cm) 4.56 -Area of Debridement (cm) - Length 1.2 -Area of Debridement (cm) - Width 3.8 -Total Square (Area) (cm) 4.56 -Tunneling No -Undermining/Tunneling No -Circular Undermining No -Wound/Ulcer Outcome Not Healed -Ulcer Cleansing Rinsed/ Irrigated with Saline -Foul Odor after Cleansing No -Bioengineered Tissue No -Bleeding Controlled with Pressure -Treatment Response Procedure Tolerated Well -Debridement - Subq, 1st 20sq cm Yes -Debridement, SubQ, ea addt'l 20sq cm 2 or part thereof #4 L ankle -Time 13:35 -Correct Patient Yes -Correct Side, Site, Position Yes -Correct Procedure Yes -Procedure Performed Yes -Type of Procedure Debridement -Clinical Debridement Subcutaneous -Tissue Removed Subcutaneous -Post Debridement (cm) - Length 4.8 -Post Debridement (cm) - Width 1.7 -Post Debridement (cm) - Depth 0.2 -Total Square (Post) (cm) 8.16 -Area of Debridement (cm) - Length 4.8 -Area of Debridement (cm) - Width 1.7 -Total Square (Area) (cm) 8.16 -Tunneling No -Undermining/Tunneling No -Circular Undermining No -Wound/Ulcer Outcome Not Healed -Ulcer Cleansing Rinsed/ Irrigated with Saline -Foul Odor after Cleansing No -Bioengineered Tissue No -Debridement - Subq, 1st 20sq cm No Pain Scale: 0-10 Numeric Is Patient Pain Free? Yes WC - Nurse 3 - General Ulcer D/C NN Start: 04/09/22 13:29 Freq: Status: Active Protocol: Activity Type Activity Date Activity User E-sign Co-sign Detail Recorded Client Recorded Date Recorded By Document 04/09/22 15:05 [place] [id number] 04/09/22 15:16 [place] 04/09/22 15:05 Wound Care Center Nurse 3 #3 R Post -Ulcer Cleansing Soap and Water -Primary Dressing Covered/Secured with Dry Gauze & Roll Gauze, Secured with Tape #2 R ankle cluster -Ulcer Cleansing Soap and Water -Primary Dressing Covered/Secured with Dry Gauze & Roll Gauze, Secured with Tape #1 R lateral foot -Ulcer Cleansing Soap and Water -Primary Dressing Covered/Secured with Dry Gauze & Roll Gauze, Secured with Tape #5 L wrist -Primary Dressing Applied Promogran Marcela Matter -Primary Dressing Covered/Secured with Dry Gauze & Roll Gauze, Secured with Tape -Promogran Marcela Matter 1 #4 L ankle -Ulcer Cleansing Soap and Water -Other Dressing santyl ordered. hydrogel placed today on wounds. -Primary Dressing Covered/Secured with Dry Gauze & Roll Gauze, Secured with Tape Right -Tubular Bandage Single Layer -Size of Tubigrip Used Size D -Size D ($) 1 Left -Tubular Bandage Single Layer -Size of Tubigrip Used Size D -Size D ($) 1 Pain Scale: 0-10 Numeric Is Patient Pain Free? Yes Additional Wound Wound debrided: R ankle cluster Laterality: Right Type of Debridement: Excisional debridement Anesthesia Used: 5% Lidocaine Gel and Cetacaine Depth: Down to and including healthy tissue and in the subcutaneous layer Percentage of wound debrided: 100 Instrument Used: 5mm curette and #10 blade Tissue Removed: adherent slough/scab, devitalized tissue Severity: Fat Layer Exposed Amount of bleeding with debridement: Mild Bleeding Controlled with: Pressure Patient tolerated procedure: Patient tolerated procedure well Additional Wound Wound debrided: R lateral foot Laterality: Right Type of Debridement: Excisional debridement Anesthesia Used: 5% Lidocaine Gel and Cetacaine Depth: Down to and including healthy tissue and in the subcutaneous layer Percentage of wound debrided: 100 Instrument Used: 5mm curette, #10 blade and Forceps Tissue Removed: adherent slough/scab, devitalized tissue Severity: Fat Layer Exposed Amount of bleeding with debridement: Mild Bleeding Controlled with: Pressure Patient tolerated procedure: Patient tolerated procedure well Additional Wound Wound debrided: L wrist Laterality: Left Type of Debridement: Excisional debridement Anesthesia Used: 5% Lidocaine Gel and Cetacaine Depth: Down to and including healthy tissue and in the subcutaneous layer Percentage of wound debrided: 100 Instrument Used: 5mm curette and #10 blade Tissue Removed: adherent slough/scab, devitalized tissue Severity: Fat Layer Exposed Amount of bleeding with debridement: Mild Bleeding Controlled with: Pressure Patient tolerated procedure: Patient tolerated procedure well Additional Wound Wound debrided: L ankle Laterality: Left Type of Debridement: Excisional debridement Anesthesia Used: 5% Lidocaine Gel and Cetacaine Depth: Down to and including healthy tissue and in the subcutaneous layer Percentage of wound debrided: 100 Instrument Used: 5mm curette, #10 blade and Forceps Tissue Removed: adherent slough/scab, devitalized tissue Severity: Fat Layer Exposed Amount of bleeding with debridement: Mild Bleeding Controlled with: Pressure Charges/Coding Wound Center CF Procedures [id number]: 32217 RMVL DEVITAL TIS 20 CM/< Multi Select Codes Wound Center CF Procedures [id number]: 51184 RMVL DEVITAL TIS 20 CM/< Assessment/Plan Assessment/Plan (1) 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 Left wristwound seems to be secondary to trauma/IV placement from his hospitalization. Patient had significant sensitivity to even light touch, had difficulty tolerating debridement at times. Debrided as many of the wounds as allowed by time and patient's tolerance. Will apply santyl to all lower extremity wounds to address significant amount ofadherent slough that remains, hope that next week will be easier/more tolerable to debride. Cover with DSD/kerlix and apply tubigrips for compression. Will apply promogran marcela to L wrist wound, cover with DSD. Change dressings daily or more often as needed to keep clean and dry. Advise to adjust diet to reduce sugar/carbs and increase protein. Work towards better blood sugar control. Elevate legs when resting. Return to clinic in 1 week or sooner as needed. 04/09/22 3200 <Electronically signed by Tonia ACUNA> Cosigner Signature (if applicable): CC: ~ Signed [facility] Work Phone: [phone] [phone] Banks [facility] March 04, 2022 2:42pm Note Date/Time March 04, 2022 2 :24pm [facility] Medical Records Department [address] [place] [address] Discharge Summary 03/04/22 1423 MR#: [id number] Acct: [id number] Name: ABELARDO IVORY Rep #:[id number] : 1950 72 From: Beatris Banks DO PCP: Dr. Ezekiel Carrasco MD Status: ADM IN Location: [place] [id number] Providers Date of Admission: 03/02/22 Date of Discharge: 03/04/22 Primary Care Physician: Dr. Ezekiel Carrasco MD Reason For Visit: CAP RLL Diagnosis Discharge Diagnosis (1) Acute respiratory failure with hypoxia: Status: Acute Code(s): J96.01 - Acute respiratory failure with hypoxia (2) Pneumonia: Status: Acute Code(s): J18.9 - Pneumonia, unspecified organism (3) Pleural effusion: Status: Acute Code(s): J90 - Pleural effusion, not elsewhere classified (4) COPD exacerbation: Status: Chronic Code(s): J44.1 - Chronic obstructive pulmonary disease with (acute) exacerbation Medications at Discharge Home Medications albuterol sulfate 90 mcg/actuation aerosol inhaler 2 puff inhalation Q4H PRN Shortness Of Breath 03/14/19 acetaminophen 325 mg tablet 650 mg PO Q4H PRN Pain 01/06/22 docusate sodium 100 mg capsule (Colace) 100 mg PO BID constipation 01/06/22 albuterol sulfate 2.5 mg/3 mL (0.083 %) solution for nebulization 2.5 mg inhalation 4X/DAY PRN Shortness Of Breath 03/02/22 aspirin 81 mg tablet,delayed release 81 mg PO DAILY heart health 03/02/22 cholecalciferol (vitamin D3) 25 mcg (1,000 unit) tablet 25 mcg PO DAILY supplement 03/02/22 fluticasone propionate 50 mcg/actuation nasal spray,suspension 2 spray intranasal QHS congestion 03/02/22 metoprolol tartrate 25 mg tablet 12.5 mg PO BID blood pressure 03/02/22 rosuvastatin 5 mg tablet (Crestor) 5 mg PO DAILY cholesterol 03/02/22 fluticasone 250 mcg-salmeterol 50 mcg/dose blistr powdr for inhalation (Advair Diskus) 1 inh inhalation BID #60 ea 03/04/22 guaifenesin 1,200 mg tablet, extended release 12 hr (Mucus Relief ER) 1,200 mg PO BID #0 tabs 03/04/22 levofloxacin 750 mg tablet 750 mg PO Q48H #5 tabs 03/04/22 prednisone 10 mg tablet 10 mg PO DAILY #40 tabs 03/04/22 Hospital Course Operations None Procedures EKG and - (Chest x-ray) Summary of Care Provided Minutes Spent on Discharge: 36 Hospital Course: Mr. Ivory is a 72-year-old white male who presented to the emergency departmentwas prehospital on 03/02/2022 with a chief complaint of shortness of breath. Patient reported he did had associated symptoms of cough, subjective fever and chills as well as white sputum production. He reported he is having symptoms for about 2 weeks. He saw his primary care physician and was treated with steroids and oral antibiotics completing them on the day of presentation. He was reevaluated in his primary care office the day of presentation and was notedto be hypoxic and was sent to the emergency department. He has strong history of tobacco abuse but quit in December when he had a AAA repair. He stated he had been smoking since he was about 12- years old. His daughter indicated that he has not previously qualified for oxygen however his daughter indicated that he not been tested. Upon presentation to the emergency department he had temperature of 98 degrees, heart rate of 85, blood pressure of 137/86 and his oxygen saturation was 84% on room air.? Respiratory rates have been anywhere between 18 and 28 during his ER course.? Given his hypoxemia on presentation he was placed on nasal cannula 3 L and oxygen saturations improved to 95 to 97%.? His CBC showed some mild stable anemia with a hemoglobin of 12 as well as thrombocytopenia with a platelet count of 117,000-this appears chronic as well.?No left shift was present.? His chemistry panel showed an elevated BUN/creatinine at his baseline being 44 and 2.24 respectively.? Initial troponin was 56.? Chest x-ray was performed and showed a right lower lobe infiltrate witha small right pleural effusion.? I did compare this to previous CAT scan that was performed and there is no abnormality on the CAT scan in the right lower lobe from December.? An EKG was also performed and showed some nonspecific T wave flattening in the lateral leads but was otherwise unremarkable with normal intervals and normal sinus rhythm. In the emergency department he was treated with aerosols, methylprednisolone 125 mg x 1 and started on ceftriaxone and azithromycin. He was admitted to the medical floor and placed on IV [id number] every 8, placed on ceftriaxone and azithromycin as well as scheduled and as needed nebulizer treatments. He was encouraged to use incentive spirometry and Pep therapy and started on Mucinex. His white count normalized at the time of discharge. Strep pneumo and Legionella antigens were negative, COVID and flu were negative, sputum culture was obtained. His sputum culture was unremarkableat the time of discharge. However final results were still pending. He clinically improved dramatically reporting that he was percent better on the dayof discharge. We did an ambulatory pulse ox and him prior to discharge to see if he would qualify for oxygen and he did require oxygen at 2 L during rest and 3 L with exertion. We arranged for home oxygen and he was very pleased with this. We also sent him home on a prednisone taper, Levaquin to complete his antibiotics and instructed him to continue Mucinex. I also started an Advair inhaler and request that he follow-up with pulmonary medicine as he has not had any pulmonary follow-up previously. With regards to wounds he had on his lower extremities and hands he has a very slow healer and appears to have poor blood flow. I suspect he has significant vascular disease and I gave him information to follow-up with vascular surgery after discharge. He was discharged home in stable condition on 03/04/2022. Discharge diagnoses: Acute hypoxic respiratory failure Right lower lobe pneumonia Acute exacerbation of COPD Small right pleural effusion Chronic anemia Chronic thrombocytopenia Multiple wounds with suspected vascular disease CKD stage IIIb AAA with previous repair Hypertension Hyperlipidemia Vitamin D deficiency Bilateral carotid artery stenosis History of peptic ulcer disease Physical Exam Narrative Patient sitting up in a chair at the bedside states he feels much better and indicates 85% improvement since admission. He is anxious to go home. Const alert, oriented x3 and no apparent distress Constitutional Narrative: Older white male sitting up in chair at the bedside, watching television, thin, appears older than stated age, very comfortable and currently on 2 L supplemental nasal cannula, nontoxic General Appearance: cooperative, comfortable, well kempt and well developed Orientation / Consciousness: awake, oriented to person, oriented to place and oriented to time Exam Limitations: no limitations HEENT normocephalic, head/scalp atraumatic and moist oral mucous membranes HEENT Narrative: Moderate hearing loss, dentition is poor, Mallampati is 2, temporal wasting Eyes PERRL, EOMs intact bilaterally and conjunctivae normal Eyes Narrative: No scleral icterus Neck no lymphadenopathy, supple, no JVD and no carotid bruits Resp normal respiratory effort, no retractions, no use of accessory muscles and clearto auscultation bilaterally Resp Narrative: Diffusely diminished but clear this morning, no tachypnea or conversational dyspnea Auscultation: Negative for crackles, rhonchi or wheezes Cardio regular rate, regular rhythm, S1 normal heart sound, S2 normal heart sound, no rub, no gallops and no clicks; Negative for no JVD Cardio Narrative: 2 out of 6 systolic murmur GI normal to inspection, nondistended, normoactive bowel sounds, soft to palpation,non-tender, non-distended and hepatosplenomegaly Extremity no clubbing, cyanosis or edema; Negative for normal to inspection Extremity Narrative: Decreased lean muscle mass Skin Skin Narrative: Scattered wounds noticed on bilateral lower extremities and bilateral upper extremities-family reports these are much improved from previous, no signs of infection Neuro oriented x3, CN's II-XII intact bilaterally, moves all extremities and no focal motor deficits Neuro Narrative: Mild generalized weakness-proximal greater than distal Speech: speech normal Psych affect normal Psych Narrative: Very pleasant, appropriately interactive Weight / BMI Weight Weight: 69.853 kg Body Mass Index (BMI) 24.8 ABG / Lab / Microbiology Data Result Diagrams: 03/04/22 04:43 03/04/22 04:43 Laboratory: Laboratory Results - last 24 hr 03/03/22 05:36: Diff Path Review Reviewed 03/04/22 04:43: WBC 4.9, RBC 2.99 L, Hgb 8.8 L, Hct 30.1 L, MCV 100.7 H, MCH 29.4, MCHC 29.2 L, RDW Std Deviation 63.7 H, RDW Coeff of Manjit 17.0 H, Plt Count 104 L, MPV 10.2, Immature Gran % (Auto) 0.800, Neut % (Auto) 78.5 H, Lymph % (Auto) 17.2 L, [place] % (Auto) 3.5, Eos % (Auto) 0.0, Baso % (Auto) 0.0, Absolute Neuts (auto) 3.8, Absolute Lymphs (auto) 0.84, Nucleated RBC % 0 03/04/22 04:43: Sodium 139, Potassium 5.2 H, Chloride 104, Carbon Dioxide 28.0, Anion Gap 7, BUN 58 H, Creatinine 2.40 H, Estim Creat Clear Calc 25.11, Est GFR (MDRD) Af Amer 34 L, Est GFR (MDRD) Non-Af 28 L, BUN/Creatinine Ratio 24.2 H, Glucose 223 H, Calcium 8.1 L Microbiology: Microbiology 03/03/22 03:10 Sputum, Expectorated/Coughed Gram Stain - Final 03/03/22 03:59 Urine, Random Legionella Antigen - Final 03/03/22 03:59 Urine, Random Streptococcus pneumoniae Antigen (M - Final 03/02/22 16:40 Mucosa - Nasopharyngeal Respiratory Panel (PCR) - Final 03/02/22 10:15 Nasal Secretion SARS-CoV-2 & FLU Antigen (Rapid) - Final Meaningful Use Info Meaningful Use Diagnoses (Choose all that apply): None applicable Discharge Plan Admission Admit Date/Time: 03/02/22 12:26 Primary Reason for Your Visit: Shortness of breath Attending Provider: Beatris Banks Primary Care Provider: Ezekiel Carrasco Instructions Additional Instructions / Restrictions: 1. Please call the below physicians tomorrow to make follow-up appointments Discharge Orders/Prescriptions Prescriptions: New Mucus Relief ER 1,200 mg Tablet Extended Release 12hr 1,200 mg PO BID Qty: 0 0RF levofloxacin 750 mg tablet 750 mg PO Q48H Qty: 5 0RF Rx Instructions: Take every other day over the next 10 days fluticasone propion-salmeterol [Advair Diskus] 250-50 mcg/dose blister with device 1 inh inhalation BID Qty: 60 0RF prednisone 10 mg tablet 10 mg PO DAILY Qty: 40 0RF Rx Instructions: 4 tablets x 4 days, 3 tablets x 4 days, 2 tablets x 4 days, 1 tablet x 4 days Continued albuterol sulfate 90 mcg/actuation HFA aerosol inhaler 2 puff INHALATION Q4H PRN (Reason: Shortness Of Breath) acetaminophen 325 mg tablet 650 mg PO Q4H PRN (Reason: Pain) docusate sodium [Colace] 100 mg capsule 100 mg PO BID albuterol sulfate 2.5 mg /3 mL (0.083 %) solution for nebulization 2.5 mg inhalation 4X/DAY PRN (Reason: Shortness Of Breath) fluticasone propionate 50 mcg/actuation spray,suspension 2 spray INTRANASAL QHS cholecalciferol (vitamin D3) 25 mcg (1,000 unit) Tablet 25 mcg PO DAILY aspirin 81 mg tablet,delayed release (DR/EC) 81 mg PO DAILY rosuvastatin [Crestor] 5 mg tablet 5 mg PO DAILY metoprolol tartrate 25 mg tablet 12.5 mg PO BID Referrals / Follow Up: Noe Suarez MD [Med Staff - Active Staff] - Within 1 Month Ezekiel Carrasco MD [Primary Care Provider] - Within 2 Weeks Kwame Alex MD [Med Staff - Active Staff] - Within 2 Weeks Disposition Disposition (needs filled in before D/C Order can be placed): Home, Self Care Charges/Coding Visit Charges Inpatient E&M: 41190 Disch Hosp >30min 03/04/22 1442 <Electronically signed by Beatris Banks DO> Cosigner Signature (if applicable): CC: Dr. Noe Suarez MD; Dr. Ezekiel Carrasco MD; Dr. Kwame Alex MD; Dr. Beatris Banks DO~ Signed [facility] Work Phone: [phone] 168-247501-25-[address] Banks [facility] March 03, 2022 4:12pm Note Date/Time March 03, 2022 4 :12pm [facility] Medical Records Department [address] [place] [address] Progress Note - Hospitalist 03/03/22 1608 MR#: [id number] Acct: [id number] Name: ABELARDO IVORY Rep #:[id number] : 1950 72 From: Beatris Banks DO PCP: Dr. Ezekiel Carrasco MD Status: ADM IN Location: [facility] [id number] Subjective Subjective Patient states he is at least 25% better today. Has been able to ambulate around the room without any significant shortness of breath which was a problem for him at home. Feels better with oxygen in place. Is agreeable to follow-up with vascular after discharge as well as pulmonary medicine. He does not see either a baseline. Objective Data Objective Data Vital Signs: Vital Signs Temp Pulse Resp BP Pulse Ox O2 Del Method O2 Flow Rate 98.0 F 85 16 123/74 H 97 Room Air 3 03/03/22 14:16 03/03/22 14:16 03/03/22 14:16 03/03/22 14:16 03/03/22 14:16 03/03/22 14:16 03/03/22 08:00 FiO2 4 03/03/22 02:55 Oxygen Flow Rate (L/min) 3 Oxygen Delivery Method Room Air Weight: 69.853 kg Body Mass Index (BMI) 24.8 Intake & Output: Intake and Output for Last 24 Hours 03/01/22 03/02/22 03/03/22 23:59 23:59 23:59 Intake Total 353.5 / 593.5 650.25 / 650.25 Output Total 400 / 400 Balance 353.5 / 593.5 250.25 / 250.25 Lab / Micro Data Result Diagrams: 03/03/22 05:36 03/03/22 05:36 Labs: Laboratory Results - last 24 hr 03/02/22 16:35: MRSA (PCR) Negative 03/03/22 05:36: WBC 3.2 L, RBC 3.29 L, Hgb 9.8 L, Hct 33.2 L, MCV 100.9 H, MCH 29.8, MCHC 29.5 L, RDW Std Deviation 63.9 H, RDW Coeff of Manjit 17.0 H, Plt Count 98 L, MPV 10.3, Immature Gran % (Auto) 0.300, Neut % (Auto) 78.5 H, Lymph % (Auto) 19.0, [place] % (Auto) 2.2, Eos % (Auto) 0.0, Baso % (Auto) 0.0, Absolute Neuts (auto) 2.5, Absolute Lymphs (auto) 0.60 L, Nucleated RBC % 0, Diff Path Review May foll, Platelet Estimate MOD DEC, Anisocytosis 1+, Macrocytosis 1+ 03/03/22 05:36: Sodium 139, Potassium 4.3, Chloride 104, Carbon Dioxide 28.0, Anion Gap 7, BUN 52 H, Creatinine 2.68 H, Estim Creat Clear Calc 22.48, Est GFR (MDRD) Af Amer 30 L, Est GFR (MDRD) Non-Af 25 L, BUN/Creatinine Ratio 19.4, Glucose 207 H, Calcium 8.3 L, Phosphorus 4.9, Magnesium 1.9, Total Bilirubin 0.60, AST 18, ALT 15 L, Alkaline Phosphatase 138 H, Total Protein 6.8, Albumin 2.6 L, Globulin 4.2, Albumin/Globulin Ratio 0.6 L, TSH 2.41 Micro: Microbiology 03/03/22 03:10 Sputum, Expectorated/Coughed Gram Stain - Final 03/03/22 03:59 Urine, Random Legionella Antigen - Final 03/03/22 03:59 Urine, Random Streptococcus pneumoniae Antigen (M - Final 03/02/22 16:40 Mucosa - Nasopharyngeal Respiratory Panel (PCR) - Final 03/02/22 10:15 Nasal Secretion SARS-CoV-2 & FLU Antigen (Rapid) - Final Rhythm Strip Rhythm Strip: Sinus Rhythm Rate: 75 Ectopy: None Physical Exam Const alert, oriented x3 and no apparent distress Constitutional Narrative: Older white male sitting up in chair at the bedside, watching television, thin, appears older than stated age, very comfortable and currently on 2 L supplemental nasal cannula, nontoxic General Appearance: cooperative HEENT normocephalic, head/scalp atraumatic and moist oral mucous membranes HEENT Narrative: Dentition is poor, no thrush Resp normal respiratory effort, no retractions, no use of accessory muscles and clearto auscultation bilaterally Resp Narrative: Diffusely diminished but clear this morning, no tachypnea or conversational dyspnea Auscultation: Negative for crackles, rhonchi or wheezes Cardio regular rate, regular rhythm, S1 normal heart sound, S2 normal heart sound, no murmurs, no rub, no gallops and no clicks GI normal to inspection, nondistended, normoactive bowel sounds, soft to palpation and non-tender Extremity no clubbing, cyanosis or edema Extremity Narrative: Decreased lean muscle mass Skin Skin Narrative: Scattered wounds noticed on bilateral lower extremities and bilateral upper extremities-family reports these are much improved from previous, no signs of infection Neuro oriented x3, moves all extremities and no focal motor deficits Neuro Narrative: Mild generalized weakness-proximal greater than distal Speech: speech normal Psych affect normal Psych Narrative: Very pleasant, appropriately interactive Assessment & Plan Assessment/Plan (1) Acute respiratory failure with hypoxia: (2) Pneumonia: (3) Pleural effusion: (4) COPD exacerbation: PLAN: Plan Acute hypoxic respiratory failure secondary to right lower lobe pneumonia/acute exacerbation of COPD -Patient with tachypnea, hypoxemia with oxygen saturations in the 80s on room air which is his baseline as well as conversational dyspnea on supplemental oxygen -COVID/flu antigen negative -Respiratory viral panel is unremarkable -Strep pneumo and Legionella antigens are negative -Sputum culture obtained and shows gram-positive rods and cocci on gram stain thus far with culture pending -I-S/Pep therapy -Continue ceftriaxone and azithromycin -Continue Solu-Medrol -Patient has been weaned to 2 L nasal cannula and oxygen saturations are in the mid 90s -Continue to wean as able -Will need ambulatory pulse ox prior to discharge as I suspect patient may need supplemental oxygen at least with exertion at baseline -Patient does not follow with pulmonary medicine as an outpatient--> would recommend referral at discharge -Consider starting combination inhaled steroid/LABA prior to discharge Small right pleural effusion -May be parapneumonic however not large enough to tap -Continue to monitor clinically and with imaging as needed Chronic anemia -Hemoglobin down but now appears to be at baseline -Repeat CBC in a.m. Chronic thrombocytopenia -At baseline -Appears stable -Repeat CBC in a.m. Multiple wounds -Related to his previous surgery in December -Slow healing likely related to his vascular disease -Would recommend follow-up as an outpatient with vascular surgery after discharge -Patient agreeable CKD stage IIIb -Current serum creatinine is 2. 6 2 -Remains in baseline range -Monitor clinically -Avoid nephrotoxins as able AAA with repair -Repair at [facility] [place] in December 2021 -Continue tobacco cessation -Continue aspirin, metoprolol, rosuvastatin Hypertension -Continue metoprolol 12.5 mg p.o. twice daily Hyperlipidemia -Continue Crestor 5 mg daily Vitamin D deficiency -Continue cholecalciferol Bilateral carotid artery stenosis -No bruit on auscultation during exam -Continue medical therapy as noted above History of peptic ulcer disease -No current issues -Patient is not on PPI at baseline DVT prophylaxis -heparin 5000 TID -SCD's Code Status DNR CCA- no intubation Charges/Coding Visit Charges Inpatient E&M: 97440 Subs Hosp L2 03/03/22 1612 <Electronically signed by Beatris Banks DO> Cosigner Signature (if applicable): CC: ~ Signed [facility] Work Phone: [phone] Garland [facility] March 02, 2022 3:36pm Note Date/Time March 02, 2022 1 0:07am [facility] Medical Records Department [address] [place] [address] Emergency Department Summary 03/02/22 MR#: [id number] Acct: [id number] Name: ABELARDO IVORY Rep #:[id number] : 1950 72 From: Nhan Garland MD PCP: Dr. Ezekiel Carrasco MD Status: REG ER Location: ED HPI History of Present Illness Chief Complaint: Shortness of Breath Informant: patient and family Onset/Context/Timing Onset: Weeks Context: gradual Timing: Continuous Current Severity: Mild Maximum Severity: Mild Associated Symptoms cough, fever, chills and white sputum Chest Pain: Positive for None Narrative Narrative: 72-year-old male history of AAA repair in December, anemia, CAD, CABG, aortic valve repair with a Valve, COPD and renal insufficiency. He has had a cough andshortness of breath for 1 to 2 weeks. Was treated respiratory care physician's office with steroids and antibiotic. He was seen today was hypoxic in the office and they wanted him evaluated. He denies chest pain or any hemoptysis. PE Risk Factors: Negative for Cancer, OCP + Smoking + > 35, Prior DVT or PE, Recent immobilization, Recent surgery or Recent travel Prior similar symptoms: Yes Recent Illness/Hospitalization: No PFSH PFSH Medical History Abdominal aortic aneurysm (AAA) Anemia Arthritis Atherosclerotic heart disease of lummi coronary artery without angina pectoris Bilateral inguinal hernia Carotid stenosis, bilateral Cough Essential hypertension Hyperlipidemia Intention tremor Left carotid bruit Nonrheumatic aortic (valve) stenosis PUD (peptic ulcer disease) Secondary pulmonary arterial hypertension Subcutaneous mass of back Tobacco dependence Home Medications albuterol sulfate 90 mcg/actuation aerosol inhaler 2 puff inhalation Q4H PRN Shortness Of Breath 03/14/19 [History Last Taken 03/02/22] acetaminophen 325 mg tablet 650 mg PO Q4H PRN Pain 01/06/22 [History Last Taken 02/16/22] docusate sodium 100 mg capsule (Colace) 100 mg PO BID constipation 01/06/22 [History Last Taken 03/02/22] albuterol sulfate 2.5 mg/3 mL (0.083 %) solution for nebulization 2.5 mg inhalation 4X/DAY PRN Shortness Of Breath 03/02/22 [History Last Taken 03/02/22] aspirin 81 mg tablet,delayed release 81 mg PO DAILY heart health 03/02/22 [History Last Taken 03/02/22] cholecalciferol (vitamin D3) 25 mcg (1,000 unit) tablet 25 mcg PO DAILY supplement 03/02/22 [History Last Taken 03/02/22] fluticasone propionate 50 mcg/actuation nasal spray,suspension 2 spray intranasal QHS congestion 03/02/22 [History Last Taken Unknown] metoprolol tartrate 25 mg tablet 12.5 mg PO BID blood pressure 03/02/22 [History Last Taken 03/02/22] rosuvastatin 5 mg tablet (Crestor) 5 mg PO DAILY cholesterol 03/02/22 [History Last Taken 03/02/22] Allergy/AdvReac Type Severity Reaction Status Date / Time No Known Allergies Allergy Verified 03/02/22 09:09 Family History Sister Asthma Mother Arthritis Diabetes Brother Cancer Unsure what kind- just a lump on his neck Surgical History 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) History of aortic valve replacement (02/12/19) History of left heart catheterization (11/27/18) No history of previous surgery Social History Smoking Status: Former smoker quit status: has quit before alcohol intake: never substance use type: does not use caffeine: Yes Type: coffee Number of servings: 3 what type of physical activity do you participate in: other frequency: 3-4 times per week seatbelt use: always ROS ROS ED ROS Narrative Cough, shortness of breath, fever or chills. Review of Systems ROS Unobtainable: Denies due to encephalopathy Constitutional Constitutional ED: Reports chills and fever(s) Eyes Eyes: Denies blurry vision ENT ENT ED: Denies ear pain or rhinorrhea Cardiovascular Cardiovascular: Denies chest pain or palpitations Respiratory/Chest Respiratory/Chest: Reports cough and dyspnea Gastrointestinal Gastrointestinal: Denies abdominal pain, constipation, diarrhea, melena, nausea or vomiting Genitourinary Genitourinary ED: Denies dysuria Musculoskeletal Musculoskeletal: Denies arthralgias Integumentary Denies abscess Neurologic Neurologic: Denies headache(s) Psychiatric Psychiatric: Denies anxiety Endocrine Endocrinology: Denies cold intolerance Hematologic/Lymphatic Hematologic/Lymphatic: Denies easy bleeding Allergic/Immunologic Allergic/Immunologic ED: Denies mouth swelling or tongue swelling EXAM Physical Exam Narrative Exam Narrative: 72-year-old male vital signs are stable except his pulse ox is 84% on room air consistent with hypoxia. On 3 L he is 97%. He does not look septic or toxic. He does not look dehydrated. H EENT exam unremarkable. Moist Riis membranes. Neck nontender no JVD. No lymphadenopathy. Lungs coarse breath sounds bilaterally. Productive cough of white sputum. Heart regular rate and rhythm rate about 85 no murmur. Abdomen soft nontender. Moving all 4 extremities. Thin. Calves are nontender without edema. Neurologically is awake and alert with no focal motor deficits. Const Vital Signs: 03/02/22 09:04 03/02/22 09:10 03/02/22 09:10 Temperature 98.0 F 98 F Temperature Source Temporal Temporal Pulse Rate 85 84 84 Respiratory Rate 17 17 Respiratory Effort Respiratory Depth Respiratory Pattern Blood Pressure 137/86 H 135/86 H Blood Pressure Mean 103 102 Pulse Ox 84 97 97 Oxygen Delivery Method Room Air Nasal Cannula Nasal Cannula Oxygen Flow Rate (L/min) 3 3 03/02/22 09:13 03/02/22 09:38 03/02/22 10:01 Temperature Temperature Source Pulse Rate 90 Respiratory Rate 19 H Respiratory Effort Short of Breath Respiratory Depth Normal Respiratory Pattern Normal Tachypnea Blood Pressure Blood Pressure Mean Pulse Ox Oxygen Delivery Method Nasal Cannula Oxygen Flow Rate (L/min) 3 03/02/22 11:10 03/02/22 11:10 03/02/22 12:05 Temperature 97.9 F Temperature Source Oral Pulse Rate 78 91 75 Respiratory Rate 25 H 19 H 23 H Respiratory Effort Respiratory Depth Respiratory Pattern Blood Pressure 151/88 H 151/88 H 173/65 H Blood Pressure Mean 109 109 101 Pulse Ox 96 97 96 Oxygen Delivery Method Nasal Cannula Nasal Cannula Nasal Cannula Oxygen Flow Rate (L/min) 3 3 3 Positive well nourished and well developed; Negative for obese, cachectic, contractures or unkempt General Appearance ED: well developed and NAD; Negative for unkempt, cachectic, contractures or pallor Nutritional Appearance: Negative for cachectic or obese HEENT Reports moist mucous membranes; Denies dry mucous membranes atraumatic; Negative for trauma or tenderness Mouth ED: No dry mucous membranes Mouth: No dry mucous membranes Eyes PERRL and EOMs intact bilaterally General Eye ED: Negative for pale conjunctiva, scleral icterus or other Neck no lymphadenopathy, supple, no meningeal signs and no JVD General: Negative for tenderness Lymph Lymphatic: Negative for other Chest Wall Chest: Negative for other Resp normal respiratory effort and clear to auscultation bilaterally Effort and Inspection: Negative for pain with movement Auscultation: Negative for rales, rhonchi or wheezes Cardio regular rate, regular rhythm, S1 normal heart sound, S2 normal heart sound and no murmurs Rate: Negative for bradycardia or tachycardic GI non-tender, non-distended and no masses Inspection: Negative for other Auscultation: normoactive bowel sounds Palpation: soft; Negative for tender or guarding Back/Spine no CVA tenderness and normal to inspection General Back: Negative for CVA tenderness or tenderness Extremity normal to inspection General Extremety ED: Negative for edema or tenderness General Extremity: Negative for edema Neuro oriented x3 and CN's II-XII intact bilaterally Sensorium / Orientation: alert, oriented to person, oriented to place and oriented to time; Negative for orientation impaired, confused, lethargic or stuporous Speech: speech normal Motor Exam: strength 5/5 throughout Psych mental status grossly normal Appearance: Negative for unkempt Attitude: No agitated Mood & Affect: Negative for depressed or anxious Thought Process: normal thought process Skin no wounds and skin turgor normal General Skin Exam: Negative for jaundice or pallor Lesions: no lesions Rashes: no rashes Trauma: Negative for abrasion MDM MDM MDM Narrative Medical decision making narrative: 72-year-old male with dyspnea, hypoxia consider COPD flare versus pneumonia versus influenza or COVID. Also consider things such as a pleural effusion. Clinically he has no significant risk factors for pulmonary emboli. Patient undergo cardiac work-up. Received Solu-Medrol and DuoNeb aerosol and reevaluated. Repeat exam at 12:17 PM unchanged. I went over her lab results and x-ray with the patient and family. He will be started on IV antibiotics for pneumonia. Heneeds to be admitted due to his hypoxia. He will be started on Rocephin and Zithromax. He does not look septic or toxic. Lab Data Attestation: I reviewed the patient's lab results. Lab results narrative: Chest x-ray is consistent with a right pleural effusion and or infiltrate. CBC shows white count 5.3. H&H of 12 and 40. Platelets are low at 117,000. Electrolytes show a gap of 6. BUN 44 creatinine 2.2. His troponin is normal at56. COVID and influenza both negative. His renal insufficiency is consistent with his baseline. I did review prior labs and old records for comparison. Labs: Laboratory Results - last 24 hr 03/02/22 03/02/22 03/02/22 09:13 09:13 09:13 WBC 5.3 RBC 4.06 L Hgb 12.0 L Hct 40.7 MCV 100.2 H MCH 29.6 MCHC 29.5 L RDW Std Deviation 65.8 H RDW Coeff of Manjit 17.5 H Plt Count 117 L MPV 10.3 Immature Gran % (Auto) 0.400 Neut % (Auto) 66.7 Lymph % (Auto) 27.6 [place] % (Auto) 5.1 Eos % (Auto) 0.2 Baso % (Auto) 0.0 Absolute Neuts (auto) 3.6 Absolute Lymphs (auto) 1.47 Nucleated RBC % 0 Anisocytosis 1+ Sodium 141 Potassium 4.5 Chloride 106 Carbon Dioxide 29.0 Anion Gap 6 BUN 44 H Creatinine 2.24 H Estim Creat Clear Calc 26.90 Est GFR (MDRD) Af Amer 37 L Est GFR (MDRD) Non-Af 31 L BUN/Creatinine Ratio 19.6 Glucose 112 H Calcium 8.5 Troponin I High Sens 56 Radiography Chest X-Ray - ED: 1 View, Read by ED Physician, Heart, Mediastinum, Bony Structures, Chronic Changes, Right Infiltrate and Right Effusion Diagnostic Testing: Clinical Impression(s) from Imaging Studies Chest X-Ray 03/02/22 09:25 IMPRESSION: Right lower lobe infiltrate with small right pleural effusion. Electronically Signed: Lebron Briseno MD at 10:38 EST , Chest x-ray, portable, single view interpreted both by myself and the radiologist shows normal cardiac silhouette. Prior sternotomy. Right lower lobe pneumonia and pleural effusion. Rhythm Strip Rhythm Strip: Sinus Rhythm Rate: 75 Ectopy: None EKG Initial EKG: Attestation: I personally reviewed and interpreted this EKG as follows: Interpretation: Sinus Rhythm and No Acute Injury Pattern Comments: Normal sinus rhythm rate of 75 no acute signs of MO or ischemia. Discharge Plan Triage Chief Complaint: Shortness of Breath ED Provider: Nhan Garland Dx/Rx/DC Orders Clinical Impression: Hypoxia, Pneumonia, Pleural effusion, COPD exacerbation, Chronic kidney insufficiency Prescriptions: No Action albuterol sulfate 90 mcg/actuation HFA aerosol inhaler 2 puff INHALATION Q4H PRN (Reason: Shortness Of Breath) acetaminophen 325 mg tablet 650 mg PO Q4H PRN (Reason: Pain) docusate sodium [Colace] 100 mg capsule 100 mg PO BID albuterol sulfate 2.5 mg /3 mL (0.083 %) solution for nebulization 2.5 mg inhalation 4X/DAY PRN (Reason: Shortness Of Breath) fluticasone propionate 50 mcg/actuation spray,suspension 2 spray INTRANASAL QHS cholecalciferol (vitamin D3) 25 mcg (1,000 unit) Tablet 25 mcg PO DAILY aspirin 81 mg tablet,delayed release (DR/EC) 81 mg PO DAILY rosuvastatin [Crestor] 5 mg tablet 5 mg PO DAILY metoprolol tartrate 25 mg tablet 12.5 mg PO BID Primary Care Provider: Ezekiel Carrasco Referrals: Ezekiel Carrasco MD [Primary Care Provider] - Disposition Disposition: Acute Care Hospital [facility] What to do if you have Problems For any increased pain, shortness of breath, bleeding, nausea or vomiting, chestpain, or any unexpected problems, contact your Primary Care Provider. Call [facility] ([phone]) or report to the closest Emergency Room. Call 911 if necessary. 03/02/22 1536 <Electronically signed by Nhan Garland MD> Cosigner Signature (if applicable): CC: Dr. Ezekiel Carrasco MD ~ Signed [facility] Work Phone: [phone]) 851-769801-24-2023 History and physical note Author Dr. Banks [facility] March 02, 2022 1:08pm Note Date/Time March 02, 2022 1 2:36pm [facility] Medical Records Department [address] [place] [address] H&P Exam - Hospitalist 03/02/22 1233 MR#: [id number] Acct: [id number] Name: ABELARDO IVORY Rep #:[id number] : 1950 72 From: Beatris Banks DO PCP: Dr. Ezekiel Carrasco MD Status: REG ER Location: ED HPI - General General Date of Admission: 03/02/22 Date of Service: 03/02/22 Chief Complaint: Shortness of breath HPI Narrative ABELARDO IVORY, is a 72 M who presented to the emergency department [facility] on 03/02/2022 with a chief complaint of shortness of breath. He has had associated symptoms of cough, subjective fever and chills as well as white sputum production. Patient's evidently had symptoms for almost 2 weeks now. He presented to his primary care physician's office and was treated with steroids IV and orally and oral antibiotics. He completed his oral antibiotics today. They reevaluated him in the office today and he was noted to be hypoxic and he was sent to the emergency department. He denies any chest pain or hemoptysis. He has a history of tobacco abuse and just quit in December when hehad his AAA repaired. He states he has been smoking since he was about 12 yearsold prior to that point. He has not previously qualified for oxygen however hasnot been tested with exertion per his daughter. He states he has been getting worse rather than getting better. Upon presentation to the emergency department he had temperature of 98 degrees, heart rate of 85, blood pressure of 137/86 and his oxygen saturation was 84% on room air. Respiratory rates have been anywhere between 18 and 28 during his ER course. Given his hypoxemia on presentation he was placed on nasal cannula 3 L and oxygen saturations improved to 95 to 97%. His CBC showed some mild stable anemia with a hemoglobin of 12 as well as thrombocytopenia with a platelet countof 117,000- this appears chronic as well. No left shift was present. His chemistry panel showed an elevated BUN/creatinine at his baseline being 44 and 2.24 respectively. Initial troponin was 56. Chest x-ray was performed and showed a right lower lobe infiltrate with a small right pleural effusion. I didcompare this to previous CAT scan that was performed and there is no abnormalityon the CAT scan in the right lower lobe from December. An EKG was also performed and showed some nonspecific T wave flattening in the lateral leads butwas otherwise unremarkable with normal intervals and normal sinus rhythm. The emergency department he was treated with aerosols, methylprednisolone 125 mgx 1 and started on ceftriaxone and azithromycin. [facility] Medical History Abdominal aortic aneurysm (AAA) Anemia Arthritis Atherosclerotic heart disease of lummi coronary artery without angina pectoris Bilateral inguinal hernia Carotid stenosis, bilateral Cough Essential hypertension Hyperlipidemia Intention tremor Left carotid bruit Nonrheumatic aortic (valve) stenosis PUD (peptic ulcer disease) Secondary pulmonary arterial hypertension Stage 3b chronic kidney disease (CKD) Subcutaneous mass of back Thrombocytopenia Tobacco dependence Home Medications albuterol sulfate 90 mcg/actuation aerosol inhaler 2 puff inhalation Q4H PRN Shortness Of Breath 03/14/19 [History Last Taken 03/02/22] acetaminophen 325 mg tablet 650 mg PO Q4H PRN Pain 01/06/22 [History Last Taken 02/16/22] docusate sodium 100 mg capsule (Colace) 100 mg PO BID constipation 01/06/22 [History Last Taken 03/02/22] albuterol sulfate 2.5 mg/3 mL (0.083 %) solution for nebulization 2.5 mg inhalation 4X/DAY PRN Shortness Of Breath 03/02/22 [History Last Taken 03/02/22] aspirin 81 mg tablet,delayed release 81 mg PO DAILY heart health 03/02/22 [History Last Taken 03/02/22] cholecalciferol (vitamin D3) 25 mcg (1,000 unit) tablet 25 mcg PO DAILY supplement 03/02/22 [History Last Taken 03/02/22] fluticasone propionate 50 mcg/actuation nasal spray,suspension 2 spray intranasal QHS congestion 03/02/22 [History Last Taken Unknown] metoprolol tartrate 25 mg tablet 12.5 mg PO BID blood pressure 03/02/22 [History Last Taken 03/02/22] rosuvastatin 5 mg tablet (Crestor) 5 mg PO DAILY cholesterol 03/02/22 [History Last Taken 03/02/22] Allergy/AdvReac Type Severity Reaction Status Date / Time No Known Allergies Allergy Verified 03/02/22 09:09 Family History Sister Asthma Mother Arthritis Diabetes Brother Cancer Unsure what kind- just a lump on his neck Surgical History (Updated 03/02/22 @ 12:[address] Beatris Banks DO) 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) History of aortic valve replacement (02/12/19) History of left heart catheterization (11/27/18) No history of previous surgery S/P AAA repair Social History (Updated 03/02/22 @ 12:[address] Beatris Bnaks DO) Smoking Status: Former smoker quit date: 12/28/21 pack-years: 58 quit status: has quit before alcohol intake: never substance use type: does not use caffeine: Yes Type: coffee Number of servings: 3 what type of physical activity do you participate in: other frequency: 3-4 times per week seatbelt use: always ROS Constitutional Constitutional: Reports chills, fatigue, fever(s), malaise and weakness; Denies anorexia, change in weight, night sweats or other Eyes Eyes: Denies blurry vision, change in eye color, change in vision, discharge from eye(s), double vision, erythema, eye pain, loss of vision or other ENT HEENT: Reports hearing loss; Denies abnormal hearing, dysphagia, ear pain, epistaxis, headache(s), nasal congestion, nasal discharge, post nasal drip, sinus pressure, sore throat or other Cardiovascular Cardiovascular: Denies chest pain, claudication, dyspnea on exertion, edema, lightheadedness, orthopnea, palpitations, paroxysmal nocturnal dyspnea, rapid heart rate, syncope or other Respiratory/Chest Respiratory/Chest: Reports cough, dyspnea, excessive phlegm production, productive cough, shortness of breath at rest, shortness of breath with exertionand wheezing; Denies hemoptysis or other Gastrointestinal Gastrointestinal: Denies abdominal pain, coffee ground emesis, constipation, diarrhea, dyspepsia, hematemesis, hematochezia, loose stools, melena, nausea, vomiting or other Genitourinary Genitourinary: Denies burning urination, difficulty urinating, dysuria, hematuria, nocturia, urinary frequency, urinary hesitancy, urinary incontinence,urinary urgency or other Musculoskeletal Musculoskeletal: Reports back pain and joint pain; Denies arthralgias, joint stiffness, joint swelling, myalgias, neck pain or other Neurologic Neurologic: Denies abnormal gait, abnormal speech, confusion, disequilibrium, dizziness, focal weakness, headache(s), numbness, paresthesias, seizure-like activity, seizures, syncope, tingling, tremor(s) or other Psychiatric Psychiatric: Denies anxiety, depression, homicidal ideation, suicidal ideation or other Endocrine Endocrinology: Denies change in body appearance, cold intolerance, excessive sweating, heat intolerance, polydipsia, polyuria or other Hematologic/Lymphatic Hematologic/Lymphatic: Reports easy bruising; Denies anemia, easy bleeding, lymphadenopathy or other Allergic/Immunologic Allergic/Immunologic: Denies rhinitis, hives, eczemia, asthma or other Vital Signs Vital Signs Vital Signs: 03/02/22 09:04 03/02/22 09:10 03/02/22 09:10 Temperature 98.0 F 98 F Temperature Source Temporal Temporal Pulse Rate 85 84 84 Respiratory Rate 17 17 Respiratory Effort Respiratory Depth Respiratory Pattern Blood Pressure 137/86 H 135/86 H Blood Pressure Mean 103 102 Pulse Ox 84 97 97 Oxygen Delivery Method Room Air Nasal Cannula Nasal Cannula Oxygen Flow Rate (L/min) 3 3 03/02/22 09:13 03/02/22 09:38 03/02/22 10:01 Temperature Temperature Source Pulse Rate 90 Respiratory Rate 19 H Respiratory Effort Short of Breath Respiratory Depth Normal Respiratory Pattern Normal Tachypnea Blood Pressure Blood Pressure Mean Pulse Ox Oxygen Delivery Method Nasal Cannula Oxygen Flow Rate (L/min) 3 03/02/22 11:10 03/02/22 11:10 03/02/22 12:05 Temperature 97.9 F Temperature Source Oral Pulse Rate 78 91 75 Respiratory Rate 25 H 19 H 23 H Respiratory Effort Respiratory Depth Respiratory Pattern Blood Pressure 151/88 H 151/88 H 173/65 H Blood Pressure Mean 109 109 101 Pulse Ox 96 97 96 Oxygen Delivery Method Nasal Cannula Nasal Cannula Nasal Cannula Oxygen Flow Rate (L/min) 3 3 3 03/02/22 12:20 Temperature 97.5 F L Temperature Source Temporal Pulse Rate 97 Respiratory Rate 28 H Respiratory Effort Respiratory Depth Respiratory Pattern Blood Pressure 147/94 H Blood Pressure Mean 111 Pulse Ox 95 Oxygen Delivery Method Nasal Cannula Oxygen Flow Rate (L/min) 3 Weight Weight: 69.853 kg Body Mass Index (BMI) 24.8 Physical Exam Const alert, oriented x3 and no apparent distress Constitutional Narrative: Older white male lying in bed, thin, appears older than stated age, daughter at bedside, patient appears comfortable at this time, nursing intermittently at bedside as well, no current signs of respiratory distress on 3 L nasal cannula however patient does have some tachypnea General Appearance: cooperative HEENT normocephalic, head/scalp atraumatic and moist oral mucous membranes HEENT Narrative: Upper dentures in place, Mallampati 2, no thrush, mild hearing loss Eyes PERRL, EOMs intact bilaterally and conjunctivae normal Eyes Narrative: No scleral icterus Neck no lymphadenopathy, supple, no JVD and no carotid bruits Resp No normal respiratory effort, no retractions and no use of accessory muscles Resp Narrative: Diffusely diminished with rhonchi in right base and right middle lobe with scattered wheeze, tachypnea with some conversational dyspnea Auscultation: rhonchi and wheezes; Negative for crackles Cardio Negative for regular rate, regular rhythm, S1 normal heart sound, S2 normal heart sound, no murmurs, no rub, no gallops, no clicks or no JVD GI non-distended and hepatosplenomegaly; Negative for normal to inspection, nondistended, normoactive bowel sounds, soft to palpation or non-tender Extremity no clubbing, cyanosis or edema; Negative for normal to inspection Extremity Narrative: Decreased lean muscle mass Skin Skin Narrative: Scattered wounds noticed on bilateral lower extremities and bilateral upper extremities-family reports these are much improved from previous, no signs of infection Neuro oriented x3, CN's II-XII intact bilaterally, moves all extremities and no focal motor deficits Neuro Narrative: Mild generalized weakness-proximal greater than distal Speech: speech normal Psych affect normal Psych Narrative: Very pleasant, appropriately interactive Results Lab / Micro Data Attestation: I reviewed the patient's lab results. Result Diagrams: 03/02/22 09:13 03/02/22 09:13 Labs: Laboratory Results - last 24 hr 03/02/22 09:13: WBC 5.3, RBC 4.06 L, Hgb 12.0 L, Hct 40.7, MCV 100.2 H, MCH 29.6, MCHC 29.5 L, RDW Std Deviation 65.8 H, RDW Coeff of Manjit 17.5 H, Plt Count 117 L, MPV 10.3, Immature Gran % (Auto) 0.400, Neut % (Auto) 66.7, Lymph % (Auto) 27.6, [place] % (Auto) 5.1, Eos % (Auto) 0.2, Baso % (Auto) 0.0, Absolute Neuts (auto) 3.6, Absolute Lymphs (auto) 1.47, Nucleated RBC % 0, Anisocytosis 1+ 03/02/22 09:13: Sodium 141, Potassium 4.5, Chloride 106, Carbon Dioxide 29.0, Anion Gap 6, BUN 44 H, Creatinine 2.24 H, Estim Creat Clear Calc 26.90, Est GFR (MDRD) Af Amer 37 L, Est GFR (MDRD) Non-Af 31 L, BUN/Creatinine Ratio 19.6, Glucose 112 H, Calcium 8.5 03/02/22 09:13: Troponin I High Sens 56 Micro: Microbiology 03/02/22 10:15 Nasal Secretion SARS-CoV-2 & FLU Antigen (Rapid) - Final Rhythm Strip Rhythm Strip: Sinus Rhythm Rate: 75 Ectopy: None Radiology Impression Chest X-Ray 03/02/22 09:25 IMPRESSION: Right lower lobe infiltrate with small right pleural effusion. Electronically Signed: Lebron Briseno MD at 10:38 EST , Assessment & Plan Assessment/Plan (1) Acute respiratory failure with hypoxia: (2) Pneumonia: (3) Pleural effusion: (4) COPD exacerbation: PLAN: Plan Acute hypoxic respiratory failure secondary to right lower lobe pneumonia/acute exacerbation of COPD -Patient with tachypnea, hypoxemia with oxygen saturations in the 80s on room air which is his baseline as well as conversational dyspnea on supplemental oxygen -COVID/flu antigen negative -Check respiratory viral panel -Check strep pneumo Legionella antigens -Check sputum culture -I-S/Pep therapy -We will utilize ceftriaxone and azithromycin for now -Solu-Medrol 40 mg every 8 hours with transition to prednisone taper as able -If patient does not clinically improve may consider CT scan of the chest given abnormalities on chest x-ray -Currently requiring supplemental oxygen at 3 L to maintain oxygen saturations greater than 92% -Will need ambulatory pulse ox prior to discharge as I suspect patient may need supplemental oxygen at least with exertion at baseline -Patient does not follow with pulmonary medicine as an outpatient--> would recommend referral at discharge -Consider starting combination inhaled steroid/LABA prior to discharge Small right pleural effusion -May be parapneumonic however not large enough to tap -Continue to monitor clinically and with imaging as needed Chronic anemia -Hemoglobin is stable at 12 -Repeat CBC in a.m. Chronic thrombocytopenia -Platelet count is 117,000 -Appears stable -Repeat CBC in a.m. Multiple wounds -Related to his previous surgery in December -Slow healing likely related to his vascular disease -Would recommend follow-up as an outpatient with vascular surgery after discharge CKD stage IIIb -Current serum creatinine is 2.25 -Currently at baseline -Monitor clinically -Avoid nephrotoxins as able AAA with repair -Repair at [facility] in December 2021 -Continue tobacco cessation -Continue aspirin, metoprolol, rosuvastatin Hypertension -Continue metoprolol 12.5 mg p.o. twice daily Hyperlipidemia -Continue Crestor 5 mg daily Vitamin D deficiency -Continue cholecalciferol Bilateral carotid artery stenosis -No bruit on auscultation during exam -Continue medical therapy as noted above History of peptic ulcer disease -No current issues -Patient is not on PPI at baseline DVT prophylaxis -heparin 5000 TID -SCD's Code Status DNR CCA- no intubation Charges/Coding Visit Charges Inpatient E&M: 91721 Init Hosp L3 03/02/22 1308 <Electronically signed by Beatris Banks DO> Cosigner Signature (if applicable): CC: Dr. Ezekiel Carrasco MD; Dr. Beatris Banks DO~ Signed [facility] Work Phone: [phone] [phone] History and physical note Author Dr. Banks [facility] March 02, 2022 1:08pm Note Date/Time March 02, 2022 1 2:36pm [facility] Medical Records Department [address] [place] [address] H&P Exam - Hospitalist 03/02/22 1233 MR#: [id number] Acct: [id number] Name: ABELARDO IVORY Rep #:[id number] : 1950 72 From: Beatris Banks DO PCP: Dr. Ezekiel Carrasco MD Status: [facility] - General General Date of Admission: 03/02/22 Date of Service: 03/02/22 Chief Complaint: Shortness of breath HPI Narrative ABELARDO IVORY, is a 72 M who presented to the emergency department [facility] on 03/02/2022 with a chief complaint of shortness of breath. He has had associated symptoms of cough, subjective fever and chills as well as white sputum production. Patient's evidently had symptoms for almost 2 weeks now. He presented to his primary care physician's office and was treated with steroids IV and orally and oral antibiotics. He completed his oral antibiotics today. They reevaluated him in the office today and he was noted to be hypoxic and he was sent to the emergency department. He denies any chest pain or hemoptysis. He has a history of tobacco abuse and just quit in December when hehad his AAA repaired. He states he has been smoking since he was about 12 yearsold prior to that point. He has not previously qualified for oxygen however hasnot been tested with exertion per his daughter. He states he has been getting worse rather than getting better. Upon presentation to the emergency department he had temperature of 98 degrees, heart rate of 85, blood pressure of 137/86 and his oxygen saturation was 84% on room air. Respiratory rates have been anywhere between 18 and 28 during his ER course. Given his hypoxemia on presentation he was placed on nasal cannula 3 L and oxygen saturations improved to 95 to 97%. His CBC showed some mild stable anemia with a hemoglobin of 12 as well as thrombocytopenia with a platelet countof 117,000- this appears chronic as well. No left shift was present. His chemistry panel showed an elevated BUN/creatinine at his baseline being 44 and 2.24 respectively. Initial troponin was 56. Chest x-ray was performed and showed a right lower lobe infiltrate with a small right pleural effusion. I didcompare this to previous CAT scan that was performed and there is no abnormalityon the CAT scan in the right lower lobe from December. An EKG was also performed and showed some nonspecific T wave flattening in the lateral leads butwas otherwise unremarkable with normal intervals and normal sinus rhythm. The emergency department he was treated with aerosols, methylprednisolone 125 mgx 1 and started on ceftriaxone and azithromycin. [facility] Medical History Abdominal aortic aneurysm (AAA) Anemia Arthritis Atherosclerotic heart disease of lummi coronary artery without angina pectoris Bilateral inguinal hernia Carotid stenosis, bilateral Cough Essential hypertension Hyperlipidemia Intention tremor Left carotid bruit Nonrheumatic aortic (valve) stenosis PUD (peptic ulcer disease) Secondary pulmonary arterial hypertension Stage 3b chronic kidney disease (CKD) Subcutaneous mass of back Thrombocytopenia Tobacco dependence Home Medications albuterol sulfate 90 mcg/actuation aerosol inhaler 2 puff inhalation Q4H PRN Shortness Of Breath 03/14/19 [History Last Taken 03/02/22] acetaminophen 325 mg tablet 650 mg PO Q4H PRN Pain 01/06/22 [History Last Taken 02/16/22] docusate sodium 100 mg capsule (Colace) 100 mg PO BID constipation 01/06/22 [History Last Taken 03/02/22] albuterol sulfate 2.5 mg/3 mL (0.083 %) solution for nebulization 2.5 mg inhalation 4X/DAY PRN Shortness Of Breath 03/02/22 [History Last Taken 03/02/22] aspirin 81 mg tablet,delayed release 81 mg PO DAILY heart health 03/02/22 [History Last Taken 03/02/22] cholecalciferol (vitamin D3) 25 mcg (1,000 unit) tablet 25 mcg PO DAILY supplement 03/02/22 [History Last Taken 03/02/22] fluticasone propionate 50 mcg/actuation nasal spray,suspension 2 spray intranasal QHS congestion 03/02/22 [History Last Taken Unknown] metoprolol tartrate 25 mg tablet 12.5 mg PO BID blood pressure 03/02/22 [History Last Taken 03/02/22] rosuvastatin 5 mg tablet (Crestor) 5 mg PO DAILY cholesterol 03/02/22 [History Last Taken 03/02/22] Allergy/AdvReac Type Severity Reaction Status Date / Time No Known Allergies Allergy Verified 03/02/22 09:09 Family History Sister Asthma Mother Arthritis Diabetes Brother Cancer Unsure what kind- just a lump on his neck Surgical History (Updated 03/02/22 @ 12:[address] Beatris Banks DO) 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) History of aortic valve replacement (02/12/19) History of left heart catheterization (11/27/18) No history of previous surgery S/P AAA repair Social History (Updated 03/02/22 @ 12:[address] Beatris Banks DO) Smoking Status: Former smoker quit date: 12/28/21 pack-years: 58 quit status: has quit before alcohol intake: never substance use type: does not use caffeine: Yes Type: coffee Number of servings: 3 what type of physical activity do you participate in: other frequency: 3-4 times per week seatbelt use: always ROS Constitutional Constitutional: Reports chills, fatigue, fever(s), malaise and weakness; Denies anorexia, change in weight, night sweats or other Eyes Eyes: Denies blurry vision, change in eye color, change in vision, discharge from eye(s), double vision, erythema, eye pain, loss of vision or other ENT HEENT: Reports hearing loss; Denies abnormal hearing, dysphagia, ear pain, epistaxis, headache(s), nasal congestion, nasal discharge, post nasal drip, sinus pressure, sore throat or other Cardiovascular Cardiovascular: Denies chest pain, claudication, dyspnea on exertion, edema, lightheadedness, orthopnea, palpitations, paroxysmal nocturnal dyspnea, rapid heart rate, syncope or other Respiratory/Chest Respiratory/Chest: Reports cough, dyspnea, excessive phlegm production, productive cough, shortness of breath at rest, shortness of breath with exertion and wheezing; Denies hemoptysis or other Gastrointestinal Gastrointestinal: Denies abdominal pain, coffee ground emesis, constipation, diarrhea, dyspepsia, hematemesis, hematochezia, loose stools, melena, nausea, vomiting or other Genitourinary Genitourinary: Denies burning urination, difficulty urinating, dysuria, hematuria, nocturia, urinary frequency, urinary hesitancy, urinary incontinence,urinary urgency or other Musculoskeletal Musculoskeletal: Reports back pain and joint pain; Denies arthralgias, joint stiffness, joint swelling, myalgias, neck pain or other Neurologic Neurologic: Denies abnormal gait, abnormal speech, confusion, disequilibrium, dizziness, focal weakness, headache(s), numbness, paresthesias, seizure-like activity, seizures, syncope, tingling, tremor(s) or other Psychiatric Psychiatric: Denies anxiety, depression, homicidal ideation, suicidal ideation or other Endocrine Endocrinology: Denies change in body appearance, cold intolerance, excessive sweating, heat intolerance, polydipsia, polyuria or other Hematologic/Lymphatic Hematologic/Lymphatic: Reports easy bruising; Denies anemia, easy bleeding, lymphadenopathy or other Allergic/Immunologic Allergic/Immunologic: Denies rhinitis, hives, eczemia, asthma or other Vital Signs Vital Signs Vital Signs: 03/02/22 09:04 03/02/22 09:10 03/02/22 09:10 Temperature 98.0 F 98 F Temperature Source Temporal Temporal Pulse Rate 85 84 84 Respiratory Rate 17 17 Respiratory Effort Respiratory Depth Respiratory Pattern Blood Pressure 137/86 H 135/86 H Blood Pressure Mean 103 102 Pulse Ox 84 97 97 Oxygen Delivery Method Room Air Nasal Cannula Nasal Cannula Oxygen Flow Rate (L/min) 3 3 03/02/22 09:13 03/02/22 09:38 03/02/22 10:01 Temperature Temperature Source Pulse Rate 90 Respiratory Rate 19 H Respiratory Effort Short of Breath Respiratory Depth Normal Respiratory Pattern Normal Tachypnea Blood Pressure Blood Pressure Mean Pulse Ox Oxygen Delivery Method Nasal Cannula Oxygen Flow Rate (L/min) 3 03/02/22 11:10 03/02/22 11:10 03/02/22 12:05 Temperature 97.9 F Temperature Source Oral Pulse Rate 78 91 75 Respiratory Rate 25 H 19 H 23 H Respiratory Effort Respiratory Depth Respiratory Pattern Blood Pressure 151/88 H 151/88 H 173/65 H Blood Pressure Mean 109 109 101 Pulse Ox 96 97 96 Oxygen Delivery Method Nasal Cannula Nasal Cannula Nasal Cannula Oxygen Flow Rate (L/min) 3 3 3 03/02/22 12:20 Temperature 97.5 F L Temperature Source Temporal Pulse Rate 97 Respiratory Rate 28 H Respiratory Effort Respiratory Depth Respiratory Pattern Blood Pressure 147/94 H Blood Pressure Mean 111 Pulse Ox 95 Oxygen Delivery Method Nasal Cannula Oxygen Flow Rate (L/min) 3 Weight Weight: 69.853 kg Body Mass Index (BMI) 24.8 Physical Exam Const alert, oriented x3 and no apparent distress Constitutional Narrative: Older white male lying in bed, thin, appears older than stated age, daughter at bedside, patient appears comfortable at this time, nursing intermittently at bedside as well, no current signs of respiratory distress on 3 L nasal cannula however patient does have some tachypnea General Appearance: cooperative HEENT normocephalic, head/scalp atraumatic and moist oral mucous membranes HEENT Narrative: Upper dentures in place, Mallampati 2, no thrush, mild hearing loss Eyes PERRL, EOMs intact bilaterally and conjunctivae normal Eyes Narrative: No scleral icterus Neck no lymphadenopathy, supple, no JVD and no carotid bruits Resp No normal respiratory effort, no retractions and no use of accessory muscles Resp Narrative: Diffusely diminished with rhonchi in right base and right middle lobe with scattered wheeze, tachypnea with some conversational dyspnea Auscultation: rhonchi and wheezes; Negative for crackles Cardio Negative for regular rate, regular rhythm, S1 normal heart sound, S2 normal heart sound, no murmurs, no rub, no gallops, no clicks or no JVD GI non-distended and hepatosplenomegaly; Negative for normal to inspection, nondistended, normoactive bowel sounds, soft to palpation or non-tender Extremity no clubbing, cyanosis or edema; Negative for normal to inspection Extremity Narrative: Decreased lean muscle mass Skin Skin Narrative: Scattered wounds noticed on bilateral lower extremities and bilateral upper extremities-family reports these are much improved from previous, no signs of infection Neuro oriented x3, CN's II-XII intact bilaterally, moves all extremities and no focal motor deficits Neuro Narrative: Mild generalized weakness-proximal greater than distal Speech: speech normal Psych affect normal Psych Narrative: Very pleasant, appropriately interactive Results Lab / Micro Data Attestation: I reviewed the patient's lab results. Result Diagrams: 03/02/22 09:13 03/02/22 09:13 Labs: Laboratory Results - last 24 hr 03/02/22 09:13: WBC 5.3, RBC 4.06 L, Hgb 12.0 L, Hct 40.7, MCV 100.2 H, MCH 29.6, MCHC 29.5 L, RDW Std Deviation 65.8 H, RDW Coeff of Manjit 17.5 H, Plt Count 117 L, MPV 10.3, Immature Gran % (Auto) 0.400, Neut % (Auto) 66.7, Lymph % (Auto) 27.6, [place] % (Auto) 5.1, Eos % (Auto) 0.2, Baso % (Auto) 0.0, Absolute Neuts(auto) 3.6, Absolute Lymphs (auto) 1.47, Nucleated RBC % 0, Anisocytosis 1+ 03/02/22 09:13: Sodium 141, Potassium 4.5, Chloride 106, Carbon Dioxide 29.0, Anion Gap 6, BUN 44 H, Creatinine 2.24 H, Estim Creat Clear Calc 26.90, Est GFR (MDRD) Af Amer 37 L, Est GFR (MDRD) Non-Af 31 L, BUN/Creatinine Ratio 19.6, Glucose 112 H, Calcium 8.5 03/02/22 09:13: Troponin I High Sens 56 Micro: Microbiology 03/02/22 10:15 Nasal Secretion SARS-CoV-2 & FLU Antigen (Rapid) - Final Rhythm Strip Rhythm Strip: Sinus Rhythm Rate: 75 Ectopy: None Radiology Impression Chest X-Ray 03/02/22 09:25 IMPRESSION: Right lower lobe infiltrate with small right pleural effusion. Electronically Signed: Lebron Briseno MD at 10:38 EST , Assessment & Plan Assessment/Plan (1) Acute respiratory failure with hypoxia: (2) Pneumonia: (3) Pleural effusion: (4) COPD exacerbation: PLAN: Plan Acute hypoxic respiratory failure secondary to right lower lobe pneumonia/acute exacerbation of COPD -Patient with tachypnea, hypoxemia with oxygen saturations in the 80s on room air which is his baseline as well as conversational dyspnea on supplemental oxygen -COVID/flu antigen negative -Check respiratory viral panel -Check strep pneumo Legionella antigens -Check sputum culture -I-S/Pep therapy -We will utilize ceftriaxone and azithromycin for now -Solu-Medrol 40 mg every 8 hours with transition to prednisone taper as able -If patient does not clinically improve may consider CT scan of the chest given abnormalities on chest x-ray -Currently requiring supplemental oxygen at 3 L to maintain oxygen saturations greater than 92% -Will need ambulatory pulse ox prior to discharge as I suspect patient may need supplemental oxygen at least with exertion at baseline -Patient does not follow with pulmonary medicine as an outpatient--> would recommend referral at discharge -Consider starting combination inhaled steroid/LABA prior to discharge Small right pleural effusion -May be parapneumonic however not large enough to tap -Continue to monitor clinically and with imaging as needed Chronic anemia -Hemoglobin is stable at 12 -Repeat CBC in a.m. Chronic thrombocytopenia -Platelet count is 117,000 -Appears stable -Repeat CBC in a.m. Multiple wounds -Related to his previous surgery in December -Slow healing likely related to his vascular disease -Would recommend follow-up as an outpatient with vascular surgery after discharge CKD stage IIIb -Current serum creatinine is 2.25 -Currently at baseline -Monitor clinically -Avoid nephrotoxins as able AAA with repair -Repair at [facility] [place] in December 2021 -Continue tobacco cessation -Continue aspirin, metoprolol, rosuvastatin Hypertension -Continue metoprolol 12.5 mg p.o. twice daily Hyperlipidemia -Continue Crestor 5 mg daily Vitamin D deficiency -Continue cholecalciferol Bilateral carotid artery stenosis -No bruit on auscultation during exam -Continue medical therapy as noted above History of peptic ulcer disease -No current issues -Patient is not on PPI at baseline DVT prophylaxis -heparin 5000 TID -SCD's Code Status DNR CCA- no intubation Charges/Coding Visit Charges Inpatient E&M: 03010 Init Hosp L3 03/02/22 1308 <Electronically signed by Beatris Banks DO> Cosigner Signature (if applicable): CC: Dr. Ezekiel Carrasco MD; Dr. Beatris Banks DO~ Signed [facility] Work Phone: [phone]) 379-428301-24-[address] Garland [facility] March 02, 2022 3:36pm Note Date/Time March 02, 2022 1 0:07am [facility] Medical Records Department [address] [place] [address] Emergency Department Summary 03/02/22 MR#: [id number] Acct: [id number] Name: ABELARDO IVORY Rep #:[id number] 02 : 1950 72 From: Nhan Garland MD PCP: Dr. Ezekiel Carrasco MD Status: REG ER Location: ED HPI History of Present Illness Chief Complaint: Shortness of Breath Informant: patient and family Onset/Context/Timing Onset: Weeks Context: gradual Timing: Continuous Current Severity: Mild Maximum Severity: Mild Associated Symptoms cough, fever, chills and white sputum Chest Pain: Positive for None Narrative Narrative: 72-year-old male history of AAA repair in December, anemia, CAD, CABG, aortic valve repair with a Valve, COPD and renal insufficiency. He has had a cough andshortness of breath for 1 to 2 weeks. Was treated respiratory care physician's office with steroids and antibiotic. He was seen today was hypoxic in the office and they wanted him evaluated. He denies chest pain or any hemoptysis. PE Risk Factors: Negative for Cancer, OCP + Smoking + > 35, Prior DVT or PE, Recent immobilization, Recent surgery or Recent travel Prior similar symptoms: Yes Recent Illness/Hospitalization: No PFSH PFSH Medical History Abdominal aortic aneurysm (AAA) Anemia Arthritis Atherosclerotic heart disease of lummi coronary artery without angina pectoris Bilateral inguinal hernia Carotid stenosis, bilateral Cough Essential hypertension Hyperlipidemia Intention tremor Left carotid bruit Nonrheumatic aortic (valve) stenosis PUD (peptic ulcer disease) Secondary pulmonary arterial hypertension Subcutaneous mass of back Tobacco dependence Home Medications albuterol sulfate 90 mcg/actuation aerosol inhaler 2 puff inhalation Q4H PRN Shortness Of Breath 03/14/19 [History Last Taken 03/02/22] acetaminophen 325 mg tablet 650 mg PO Q4H PRN Pain 01/06/22 [History Last Taken 02/16/22] docusate sodium 100 mg capsule (Colace) 100 mg PO BID constipation 01/06/22 [History Last Taken 03/02/22] albuterol sulfate 2.5 mg/3 mL (0.083 %) solution for nebulization 2.5 mg inhalation 4X/DAY PRN Shortness Of Breath 03/02/22 [History Last Taken 03/02/22] aspirin 81 mg tablet,delayed release 81 mg PO DAILY heart health 03/02/22 [History Last Taken 03/02/22] cholecalciferol (vitamin D3) 25 mcg (1,000 unit) tablet 25 mcg PO DAILY supplement 03/02/22 [History Last Taken 03/02/22] fluticasone propionate 50 mcg/actuation nasal spray,suspension 2 spray intranasal QHS congestion 03/02/22 [History Last Taken Unknown] metoprolol tartrate 25 mg tablet 12.5 mg PO BID blood pressure 03/02/22 [History Last Taken 03/02/22] rosuvastatin 5 mg tablet (Crestor) 5 mg PO DAILY cholesterol 03/02/22 [History Last Taken 03/02/22] Allergy/AdvReac Type Severity Reaction Status Date / Time No Known Allergies Allergy Verified 03/02/22 09:09 Family History Sister Asthma Mother Arthritis Diabetes Brother Cancer Unsure what kind- just a lump on his neck Surgical History 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) History of aortic valve replacement (02/12/19) History of left heart catheterization (11/27/18) No history of previous surgery Social History Smoking Status: Former smoker quit status: has quit before alcohol intake: never substance use type: does not use caffeine: Yes Type: coffee Number of servings: 3 what type of physical activity do you participate in: other frequency: 3-4 times per week seatbelt use: always ROS ROS ED ROS Narrative Cough, shortness of breath, fever or chills. Review of Systems ROS Unobtainable: Denies due to encephalopathy Constitutional Constitutional ED: Reports chills and fever(s) Eyes Eyes: Denies blurry vision ENT ENT ED: Denies ear pain or rhinorrhea Cardiovascular Cardiovascular: Denies chest pain or palpitations Respiratory/Chest Respiratory/Chest: Reports cough and dyspnea Gastrointestinal Gastrointestinal: Denies abdominal pain, constipation, diarrhea, melena, nausea or vomiting Genitourinary Genitourinary ED: Denies dysuria Musculoskeletal Musculoskeletal: Denies arthralgias Integumentary Denies abscess Neurologic Neurologic: Denies headache(s) Psychiatric Psychiatric: Denies anxiety Endocrine Endocrinology: Denies cold intolerance Hematologic/Lymphatic Hematologic/Lymphatic: Denies easy bleeding Allergic/Immunologic Allergic/Immunologic ED: Denies mouth swelling or tongue swelling EXAM Physical Exam Narrative Exam Narrative: 72-year-old male vital signs are stable except his pulse ox is 84% on room air consistent with hypoxia. On 3 L he is 97%. He does not look septic or toxic. He does not look dehydrated. H EENT exam unremarkable. Moist Riis membranes. Neck nontender no JVD. No lymphadenopathy. Lungs coarse breath sounds bilaterally. Productive cough of white sputum. Heart regular rate and rhythm rate about 85 no murmur. Abdomen soft nontender. Moving all 4 extremities. Thin. Calves are nontender without edema. Neurologically is awake and alert with no focal motor deficits. Const Vital Signs: 03/02/22 09:04 03/02/22 09:10 03/02/22 09:10 Temperature 98.0 F 98 F Temperature Source Temporal Temporal Pulse Rate 85 84 84 Respiratory Rate 17 17 Respiratory Effort Respiratory Depth Respiratory Pattern Blood Pressure 137/86 H 135/86 H Blood Pressure Mean 103 102 Pulse Ox 84 97 97 Oxygen Delivery Method Room Air Nasal Cannula Nasal Cannula Oxygen Flow Rate (L/min) 3 3 03/02/22 09:13 03/02/22 09:38 03/02/22 10:01 Temperature Temperature Source Pulse Rate 90 Respiratory Rate 19 H Respiratory Effort Short of Breath Respiratory Depth Normal Respiratory Pattern Normal Tachypnea Blood Pressure Blood Pressure Mean Pulse Ox Oxygen Delivery Method Nasal Cannula Oxygen Flow Rate (L/min) 3 03/02/22 11:10 03/02/22 11:10 03/02/22 12:05 Temperature 97.9 F Temperature Source Oral Pulse Rate 78 91 75 Respiratory Rate 25 H 19 H 23 H Respiratory Effort Respiratory Depth Respiratory Pattern Blood Pressure 151/88 H 151/88 H 173/65 H Blood Pressure Mean 109 109 101 Pulse Ox 96 97 96 Oxygen Delivery Method Nasal Cannula Nasal Cannula Nasal Cannula Oxygen Flow Rate (L/min) 3 3 3 Positive well nourished and well developed; Negative for obese, cachectic, contractures or unkempt General Appearance ED: well developed and NAD; Negative for unkempt, cachectic, contractures or pallor Nutritional Appearance: Negative for cachectic or obese HEENT Reports moist mucous membranes; Denies dry mucous membranes atraumatic; Negative for trauma or tenderness Mouth ED: No dry mucous membranes Mouth: No dry mucous membranes Eyes PERRL and EOMs intact bilaterally General Eye ED: Negative for pale conjunctiva, scleral icterus or other Neck no lymphadenopathy, supple, no meningeal signs and no JVD General: Negative for tenderness Lymph Lymphatic: Negative for other Chest Wall Chest: Negative for other Resp normal respiratory effort and clear to auscultation bilaterally Effort and Inspection: Negative for pain with movement Auscultation: Negative for rales, rhonchi or wheezes Cardio regular rate, regular rhythm, S1 normal heart sound, S2 normal heart sound and no murmurs Rate: Negative for bradycardia or tachycardic GI non-tender, non-distended and no masses Inspection: Negative for other Auscultation: normoactive bowel sounds Palpation: soft; Negative for tender or guarding Back/Spine no CVA tenderness and normal to inspection General Back: Negative for CVA tenderness or tenderness Extremity normal to inspection General Extremety ED: Negative for edema or tenderness General Extremity: Negative for edema Neuro oriented x3 and CN's II-XII intact bilaterally Sensorium / Orientation: alert, oriented to person, oriented to place and oriented to time; Negative for orientation impaired, confused, lethargic or stuporous Speech: speech normal Motor Exam: strength 5/5 throughout Psych mental status grossly normal Appearance: Negative for unkempt Attitude: No agitated Mood & Affect: Negative for depressed or anxious Thought Process: normal thought process Skin no wounds and skin turgor normal General Skin Exam: Negative for jaundice or pallor Lesions: no lesions Rashes: no rashes Trauma: Negative for abrasion MDM MDM MDM Narrative Medical decision making narrative: 72-year-old male with dyspnea, hypoxia consider COPD flare versus pneumonia versus influenza or COVID. Also consider things such as a pleural effusion. Clinically he has no significant risk factors for pulmonary emboli. Patient undergo cardiac work-up. Received Solu-Medrol and DuoNeb aerosol and reevaluated. Repeat exam at 12:17 PM unchanged. I went over her lab results and x-ray with the patient and family. He will be started on IV antibiotics for pneumonia. Howieeeds to be admitted due to his hypoxia. He will be started on Rocephin and Zithromax. He does not look septic or toxic. Lab Data Attestation: I reviewed the patient's lab results. Lab results narrative: Chest x-ray is consistent with a right pleural effusion and or infiltrate. CBC shows white count 5.3. H&H of 12 and 40. Platelets are low at 117,000. Electrolytes show a gap of 6. BUN 44 creatinine 2.2. His troponin is normal at56. COVID and influenza both negative. His renal insufficiency is consistent with his baseline. I did review prior labs and old records for comparison. Labs: Laboratory Results - last 24 hr 03/02/22 03/02/22 03/02/22 09:13 09:13 09:13 WBC 5.3 RBC 4.06 L Hgb 12.0 L Hct 40.7 MCV 100.2 H MCH 29.6 MCHC 29.5 L RDW Std Deviation 65.8 H RDW Coeff of Manjit 17.5 H Plt Count 117 L MPV 10.3 Immature Gran % (Auto) 0.400 Neut % (Auto) 66.7 Lymph % (Auto) 27.6 [place] % (Auto) 5.1 Eos % (Auto) 0.2 Baso % (Auto) 0.0 Absolute Neuts (auto) 3.6 Absolute Lymphs (auto) 1.47 Nucleated RBC % 0 Anisocytosis 1+ Sodium 141 Potassium 4.5 Chloride 106 Carbon Dioxide 29.0 Anion Gap 6 BUN 44 H Creatinine 2.24 H Estim Creat Clear Calc 26.90 Est GFR (MDRD) Af Amer 37 L Est GFR (MDRD) Non-Af 31 L BUN/Creatinine Ratio 19.6 Glucose 112 H Calcium 8.5 Troponin I High Sens 56 Radiography Chest X-Ray - ED: 1 View, Read by ED Physician, Heart, Mediastinum, Bony Structures, Chronic Changes, Right Infiltrate and Right Effusion Diagnostic Testing: Clinical Impression(s) from Imaging Studies Chest X-Ray 03/02/22 09:25 IMPRESSION: Right lower lobe infiltrate with small right pleural effusion. Electronically Signed: Lebron Briseno MD at 10:38 EST , Chest x-ray, portable, single view interpreted both by myself and the radiologist shows normal cardiac silhouette. Prior sternotomy. Right lower lobe pneumonia and pleural effusion. Rhythm Strip Rhythm Strip: Sinus Rhythm Rate: 75 Ectopy: None EKG Initial EKG: Attestation: I personally reviewed and interpreted this EKG as follows: Interpretation: Sinus Rhythm and No Acute Injury Pattern Comments: Normal sinus rhythm rate of 75 no acute signs of MO or ischemia. Discharge Plan Triage Chief Complaint: Shortness of Breath ED Provider: Nhan Garland Dx/Rx/DC Orders Clinical Impression: Hypoxia, Pneumonia, Pleural effusion, COPD exacerbation, Chronic kidney insufficiency Prescriptions: No Action albuterol sulfate 90 mcg/actuation HFA aerosol inhaler 2 puff INHALATION Q4H PRN (Reason: Shortness Of Breath) acetaminophen 325 mg tablet 650 mg PO Q4H PRN (Reason: Pain) docusate sodium [Colace] 100 mg capsule 100 mg PO BID albuterol sulfate 2.5 mg /3 mL (0.083 %) solution for nebulization 2.5 mg inhalation 4X/DAY PRN (Reason: Shortness Of Breath) fluticasone propionate 50 mcg/actuation spray,suspension 2 spray INTRANASAL QHS cholecalciferol (vitamin D3) 25 mcg (1,000 unit) Tablet 25 mcg PO DAILY aspirin 81 mg tablet,delayed release (DR/EC) 81 mg PO DAILY rosuvastatin [Crestor] 5 mg tablet 5 mg PO DAILY metoprolol tartrate 25 mg tablet 12.5 mg PO BID Primary Care Provider: Ezekiel Carrasco Referrals: Ezekiel Carrasco MD [Primary Care Provider] - Disposition Disposition: Acute Care Hospital [facility] What to do if you have Problems For any increased pain, shortness of breath, bleeding, nausea or vomiting, chestpain, or any unexpected problems, contact your Primary Care Provider. Call [facility] ([phone]) or report to the closest Emergency Room. Call 911 if necessary. 03/02/22 3111 <Electronically signed by Nhan Garland MD> Cosigner Signature (if applicable): CC: Dr. Ezekiel Carrasco MD ~ Signed [facility] Work Phone: 1(139) 384-490112-20-2022 Miscellaneous Notes* Telephone Encounter - Oxana Martines RN - 01/26/2022 1:13 PM EST Will need to be reviewed by patient's surgeon, Dr. Wilcox. Patient has upcoming appointment on 02/03. Attempted to return Dr. Carrasco's call with no answer. Reached patient voicemail to but no way forproviders to leave voicemail for Dr. Carrasco. If Dr. Carrasco returns call, please notify to forward message to Dr. Wilcox's office. Oxana Martines RN * Telephone Encounter - Slick Lazo - 01/25/2022 2:05 PM EST January 25, 2022 Patient last seen within the last year: Yes Date of last office visit: 12/28/2021 - was admitted to hospital while Dr. Byrnes was on service. Reason For Call: Follow-up Questions: Dr. Carrasco's office called and wanted to know if patient's marilee can be removed. He has had them for about 3 weeks now. Call back number is [phone]. Physician: Holly Byrnes MD [facility] Miscellaneous Notes* Telephone Encounter - Yris Pineda - 01/01/2022 3:02 PM EST Sent Patient out a reminder letter for his appointment in Jan and call no answer left a VM. PSS-MP [facility] History of Present illness Narrative* Venita Sahh APRN.CNP - 12/28/2021 3:24 PM EST Images from the original note were not included. Critical Care Transport Note Patient Name: Abelardo Ivory Service Date: 12/28/21 Referring Physician: Vilma Referring Facility: [facility] Accepting Physician: Fitz Accepting Facility: [facility] SUBJECTIVE/CHIEF COMPLAINT: abdominal pain REASON FOR TRANSPORT: Specialized tertiary and quaternary care for the patient's acute cardiovascular condition not available at the referring facility. History of Present Illness: The following history is what was known to CCT team at time of given care and summarized through review of available medical records, patient/family interview and from referring physician and nursing report. Abelardo Ivory is a 71 year old male with a past medical history significant for known AAA, HTN, HPL, hx Aortic valve replacement, CAD (s/p CABG), smoking, peptic ulcer, anemia, bilat inguinal hernia, carotid stenosis, and tremor. He presented to [facility] today for evaluation of acute lower abdominal pain. Per patient report the pain started around dinner time yesterday and he has been unable to eat and unable to rest since. In the ED his pain continued and a CT abd/pelvis was done that showed 5 cm infrarenal abdominal aortic aneurysm with adjacent retroperitoneal fluid suggestive of aneurysm leakage. He was given morphine for his pain and zofran for mild nausea. Otherwise no antihypertensives given, SBP trended 140s-170s in ED. At this time, the physician managing the patient requested transfer to the [facility] for tertiary and/or quaternary services unavailable at the referring facility. The physician managing the patient requested [facility] transport and treat the patient for the purpose of tertiary care, evaluation, and management of his ruptured aortic aneurysm condition(s). Air medical transport was requested to reduce the [id number], 22 minutes by air vs. approximately 75 minutes by ground, with the potential for increased antonio und transport time secondary to: distance between facilities and the patient's condition requiring an emergent procedure or evaluation not available at the referring facility and distance between facilities and ground round transport time would be excessive and detrimental to patient given current clinical status ROS: RESPIRATORY: Negative for cough, hemoptysis, wheezing, COPD, dyspnea or shortness of breath CARDIOVASCULAR: Denies chest pain, reports pain mostly in lower abdomen. Denies peripheral edema, HTN, CHF and palpitations GI: No nausea, vomiting, or diarrhea : No history of dysuria, frequency or incontinence HEMATOLOGY/LYMPHOLOGY: Denies AC use NEURO: Denies peripheral numbness or tingling The remainder of the review of systems is negative. PAST MEDICAL HISTORY: 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 Hyperlipidemia Juxtarenal ruptured abdominal aortic aneurysm (AAA) 12/28/2021 PMH - PAST MEDICAL HISTORY OF 1979 left wrist fracture PUD (peptic ulcer disease) PAST SURGICAL HISTORY: PAST SURGICAL HISTORY Procedure Laterality Date CABG (1) VEIN GRAFT & ARTERIAL GRAFT 02/12/2019 AVR and CABG x1 PAST SURGICAL HISTORY OF cyst removed from back ALLERGIES: Patient has no known allergies. SOCIAL HISTORY: Social History Tobacco Use Smoking status: Every Day Packs/day: 1.00 Years: 40.00 Pack years: 40.00 Types: Cigarettes Last attempt to quit: 01/30/2019 Years since quittin.9 Smokeless tobacco: Never Tobacco comments: started smoking 15yo, usually 1 PPD Vaping Use Vaping Use: Never used Substance Use Topics Alcohol use: No Drug use: No HOME MEDICATIONS: rosuvastatin (CRESTOR) 5 mg tablet^Take 5 mg by mouth once daily.^Disp: ^Rfl: lisinopril (ZESTRIL, PRINIVIL) 10 mg tablet^Take 10 mg by mouth once daily.^Disp: ^Rfl: iv contrast (will be provided with radiology test)^CT Cardiac - No IV access, insert saline lock prior to the sedation, infusion, injection for imaging exam. Discontinue saline lock post exam. If Pt.has a central line or IVAD, may access for administration according to line specific nursing protocol. Once exam is complete flush line and de-access according to line specific nursing protocol in the CT contrast administration guidelines link.^Disp: 1 Each^Rfl: 0 (Patient not taking: Reported on 04/17/2021 ) Omeprazole 40 mg capsule^Take 1 capsule by mouth once daily.^Disp: 30 capsule^Rfl: 0 aspirin 81 mg chewable tablet^Take 1 tablet by mouth once daily.^Disp: 30 tablet^Rfl: 0 albuterol HFA (PROAIR HFA) 90 mcg/actuation inhaler^Inhale 2 Puffs as instructed every 4 hours as needed for Wheezing/Shortness of Breath.^Disp: 1 Inhaler^Rfl: 1 metoprolol tartrate, short acting, (LOPRESSOR) 25 mg tablet^Take 0.5 tablets by mouth every 12 hours.^Disp: 30 tablet^Rfl: 1 Medications Administered by Referring Facility: [facility] OBJECTIVE: Recent Labs, Diagnostics & Procedure Reports reviewed as available. Referring Facility Labs CBC: WBC 5.7k Hgb 11.1 Hct 34.1 Plt 109K CHEMISTRY: Na 134 K 4.4 Cl 101 CO2 25 BUN 28 SCr 2.19 Glu 166 Ca 8.8 AG 8 Liver enzymes AST 21 ALT 18 AP 73 Tbili 0.40 TP 7.3 Alb 2.8 Diagnostics & Procedure Reports EC lead not available for review, NSR per transport monitor CT Scan abd/pelvis: (per OSH radiology report) 5 cm infrarenal abdominal aortic aneurysm with adjacent retroperitoneal fluid suggest of aneurysm leakage. Splenomegaly Bowel containing inguinal hernias bilaterally Procedure/Operative Report(s): None Invasive Lines/Devices/Tubes Placed by Referring Facility: PIV x 2 PHYSICAL EXAM: Upon CCT Arrival at Referring Facility Vital Signs: HR 71bpm, BP 177/82(114)mmHg, RR 20, SpO2 97% Oxygen/Ventilator Settings: room air General appearance: alert, acutely ill. HEENT: normocephalic, EOMI, PERRL, 2 mm briskly reactive. Oropharynx clear, no plaques or exudates,Posterior Oropharynx symmetric, Mucous membranes moist, Nasal mucosa non-edematous, and No rhinorrhea Respiratory: clear to auscultation bilaterally, no respiratory distress, no rales, no rhonchi, no wheezing, no retractions, no cyanosis. Cardiovascular: no murmurs, no rubs, no gallops, regular rate and rhythm, peripheral pulses symmetric, bounding. No peripheral edema noted. Extremities warm, cap refill < 3 sec Gastrointestinal: soft, nontender, nondistended, no organomegaly, normal bowel sounds, and no masses. Genitourinary: Exam deferred Musculoskeletal: No clubbing, cyanosis or edema, no joint swelling, no bony tenderness, and no deformities Skin: normal, no abrasions or open wounds, no rashes noted Heme/Lymph: No petechiae. No abnormal bruising or bleeding noted Neurologic: Awake, alert and oriented x 3, normal speech, No involuntary motions, Normal sensation GCS Eyes: 4. Spontaneous Verbal: 5: Oriented Motor: 6: Obeys Motor commands Total: 15 CRITICAL CARE COURSE Upon bedside arrival at referring facility the patient was assessed and detailed physical exam performed. Initial exam findings as described above. The patient was placed on the transport monitor andall transport equipment transitioned in standard fashion. Initial exam as noted above, pt awake, oriented, denies chest pain, states pain is mostly in his lower abdomen and that it is much improved si nce admission to the ED. Arterial line placed for BP monitoring. Metoprolol IVP given PRN and nitroprusside infusion started for further BP management. The patient was transferred to the transport cot and transported to the Aircraft and loaded without incident. The patient was medically managed, monitored, and reassessed during transport. Medications Managed & Administered by CCT: Nitroprusside - started and titrated Metoprolol 5 mg IV x 4 Procedures Performed by CCT: Arterial line ASSESSMENT/PLAN: Abelardo Ivory is a 71 year old male admitted to OSH with acute onset abdominal pain x >[address] abd pelvis in ED revealed acute AAA rupture. Acute rupture of abdominal aortic aneurysm Hypertension Acute kidney injury Abdominal pain Hypoxia - Initial exam as noted above, pt awake, oriented. - CT abd/pelvis revealed acute known AAA with evidence of rupture - Arterial line for continuous BP monitoring - Metoprolol pushes PRN - Nitroprusside as needed for further BP control - Goal SBP < 120 mmHg, HR < 70 - Low dose fentanyl as needed for pain. - No known hx renal dysfunction - BUN/Creat 28/2.19, baseline creat 1.1 - O2 via NC as needed for hypoxia - Goal SaO2 > 93% - Expedite transport to [facility] for further workup and care The transport was completed without significant incident or change in the patient's status. The patient was transported to the the [facility] by Rotor (Helicopter) for tertiary and/or quaternary evaluation and management of his Emergent Medical and Surgical condition(s). Upon arrival to the receiving facility, a [id number] report was given to bedside nursing staff [id number] and bedside medical team . Patient care was transferred. The patient condition was Critical and Acutely Ill at the time of transfer. Vital Signs at time care transferred to the receiving facility unit: HR 66bpm, Rhythm NSR, BP 126/49(70) mmHg, RR 16, SpO2 95% on 2 L O2 SPECIAL EQUIPMENT: None MODE OF TRANSPORT: Rotor (Helicopter) CRITICAL CARE TIME:I personally performed 30 minutes of critical care time exclusive of separately billable procedures, ambulance charges and treating other patients. 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 SIGNATURE: Venita Shah APRN.CNP Acute Care Nurse Practitioner [facility] Critical [facility] Procedure note* Venita Shah APRN.CNP - 12/28/2021 3:22 PM EST Images from the original note were not included. Arterial Line PROCEDURE NOTE Patient: Abelardo Ivory Date: December 28, 2021 INFORMED CONSENT: Informed consent was not obtained due to clinical factors necessitating an emergent procedure. SAFE PRACTICE Sign in Communication: Emergent N/A. Time Out: The procedural team confirmed the Correct Patient, the Correct Procedure, the Correct Site and the Correct Position (if applicable) during the audible time out: Emergent N/A. Sign Out Communication: Emergent N/A. INDICATION FOR LINE PLACEMENT: Continuous blood pressure monitoring CONDITION OF LINE PLACEMENT: Sterile PRIMARY PROCEDURALIST: BARRIE De Souza CLOSING AGENT(S): Mariely Liriano RN PROCEDURE NARRATIVE Site Marked: Yes Merritt s Test yes Skin Preparation: Chlorhexidine Gluconate Barriers Used by Proceduralist and All Assisting Personnel: Yes Barriers Used: Sterile Gloves CATHETER PLACEMENT/PLACEMENT TECHNIQUE Anesthesia was not utilized d/t the emergent nature of the procedure. The right radial artery was cannulated with a 20 g arterial catheter. Number of attempts at insertion: 1 Bright red pulsatile blood exited catheter:Yes Appropriate wave form was noted: Yes Line Secured with: sterile transparent dressing and tape Sterile dressing applied and dated: Yes Estimated Blood Loss: < 3 ml Procedure was performed while vehicle in motion: no COMPLICATIONS: None. The patient tolerated the procedure well Successful Placement: yes SIGNATURE: Venita Shah APRN.CNP PATIENT NAME: Abelardo Ivory DATE: 12/28/21 [facility] History of Past illness Narrative* Problem Noted Date Resolved Date Thrombocytopenia 02/14/2019 02/15/2019 Overview: History/Assessment: Plts 85K. Increased serosanguinous drainage (300 ml in 3 hrs) from R CT this AM. HD stable. Plan: Hold ASA/SQ Heparin for todays dose. Continue for tmw but to assess CT output and Labs prior to administration. Repeat Coags/CXR Postoperative anemia 02/14/2019 02/15/2019 Overview: History/ Assessment: BLood loss and dilutional anemia. Transfused PRBC 1/7. H/H decreased but stable with no acute decreases Plan: Trend. Transfuse as needed Acute blood loss anemia 02/12/2019 02/15/19 Overview: History/Assessment: Transfused 2 PRBC intraop. Hct 26-27 Plan: Transfuse as needed Stress hyperglycemia 02/12/2019 02/16/2019 Overview: History/Assessment: BG controlled Plan: SSI coverage Abdominal aortic aneurysm 09/07/20122012 Overview: CT 09/15/12: 3.9 cm just above the aortic bifurcation Contusion of forearm 08/09/2005 08/09/2005 documented as of this encounter (statuses as of 05/11/2021) [facility] History of Past illness Narrative* Problem Noted Date Resolved Date Thrombocytopenia 02/14/2019 02/15/2019 Overview: History/Assessment: Plts 85K. Increased serosanguinous drainage (300 ml in 3 hrs) from R CT this AM. HD stable. Plan: Hold ASA/SQ Heparin for todays dose. Continue for tmw but to assess CT output and Labs prior to administration. Repeat Coags/CXR Postoperative anemia 02/14/2019 02/15/2019 Overview: History/ Assessment: BLood loss and dilutional anemia. Transfused PRBC 1/7. H/H decreased but stable with no acute decreases Plan: Trend. Transfuse as needed Acute blood loss anemia 02/12/2019 02/15/19 Overview: History/Assessment: Transfused 2 PRBC intraop. Hct 26-27 Plan: Transfuse as needed Stress hyperglycemia 02/12/2019 02/16/2019 Overview: History/Assessment: BG controlled Plan: SSI coverage Abdominal aortic aneurysm 09/07/20122012 Overview: CT 09/15/12: 3.9 cm just above the aortic bifurcation Contusion of forearm 08/09/2005 08/09/2005 documented as of this encounter (statuses as of 12/28/2021) [facility] History of Past illness Narrative* Problem Noted Date Resolved Date Thrombocytopenia 02/14/2019 02/15/2019 Overview: History/Assessment: Plts 85K. Increased serosanguinous drainage (300 ml in 3 hrs) from R CT this AM. HD stable. Plan: Hold ASA/SQ Heparin for todays dose. Continue for tmw but to assess CT output and Labs prior to administration. Repeat Coags/CXR Postoperative anemia 02/14/2019 02/15/2019 Overview: History/ Assessment: BLood loss and dilutional anemia. Transfused PRBC 1/7. H/H decreased but stable with no acute decreases Plan: Trend. Transfuse as needed Acute blood loss anemia 02/12/2019 02/15/19 Overview: History/Assessment: Transfused 2 PRBC intraop. Hct 26-27 Plan: Transfuse as needed Stress hyperglycemia 02/12/2019 12/30/2021 Overview: History: No DM history. Assessment: Perioperative insulin resistance and exacerbation of hyperglycemia. Plan: SSI to maintain BG <150 mg/dL. Abdominal aortic aneurysm 09/07/20122012 Overview: CT 8/9/13: 3.9 cm just above the aortic bifurcation Contusion of forearm 08/09/2005 08/09/2005 documented as of this encounter (statuses as of 01/01/2022) [facility] of Past illness Narrative* Problem Noted Date Resolved Date Thrombocytopenia 02/14/2019 02/15/2019 Overview: History/Assessment: Plts 85K. Increased serosanguinous drainage (300 ml in 3 hrs) from R CT this AM. HD stable. Plan: Hold ASA/SQ Heparin for todays dose. Continue for tmw but to assess CT output and Labs prior to administration. Repeat Coags/CXR Postoperative anemia 02/14/2019 02/15/2019 Overview: History/ Assessment: BLood loss and dilutional anemia. Transfused PRBC 1/7. H/H decreased but stable with no acute decreases Plan: Trend. Transfuse as needed Acute blood loss anemia 02/12/2019 02/15/19 Overview: History/Assessment: Transfused 2 PRBC intraop. Hct 26-27 Plan: Transfuse as needed Stress hyperglycemia 02/12/2019 12/30/2021 Overview: History: No DM history. Assessment: Perioperative insulin resistance and exacerbation of hyperglycemia. Plan: SSI to maintain BG <150 mg/dL. Abdominal aortic aneurysm 09/07/20122012 Overview: CT 89/13: 3.9 cm just above the aortic bifurcation Contusion of forearm 08/09/2005 08/09/2005 documented as of this encounter (statuses as of 01/01/2022) [facility] of Past illness Narrative* Problem Noted Date Resolved Date Thrombocytopenia 02/14/2019 02/15/2019 Overview: History/Assessment: Plts 85K. Increased serosanguinous drainage (300 ml in 3 hrs) from R CT this AM. HD stable. Plan: Hold ASA/SQ Heparin for todays dose. Continue for tmw but to assess CT output and Labs prior to administration. Repeat Coags/CXR Postoperative anemia 02/14/2019 02/15/2019 Overview: History/ Assessment: BLood loss and dilutional anemia. Transfused PRBC 1/7. H/H decreased but stable with no acute decreases Plan: Trend. Transfuse as needed Acute blood loss anemia 02/12/2019 02/15/19 Overview: History/Assessment: Transfused 2 PRBC intraop. Hct 26-27 Plan: Transfuse as needed Stress hyperglycemia 02/12/2019 12/30/2021 Overview: History: No DM history. Assessment: Perioperative insulin resistance and exacerbation of hyperglycemia. Plan: SSI to maintain BG <150 mg/dL. Abdominal aortic aneurysm 09/07/20122012 Overview: CT 09/15/12: 3.9 cm just above the aortic bifurcation Contusion of forearm 08/09/2005 08/09/2005 documented as of this encounter (statuses as of 01/26/2022) [facility] History of Past illness Narrative* Problem Noted Date Resolved Date Thrombocytopenia 02/14/2019 02/15/2019 Overview: History/Assessment: Plts 85K. Increased serosanguinous drainage (300 ml in 3 hrs) from R CT this AM. HD stable. Plan: Hold ASA/SQ Heparin for todays dose. Continue for tmw but to assess CT output and Labs prior to administration. Repeat Coags/CXR Postoperative anemia 02/14/2019 02/15/2019 Overview: History/ Assessment: BLood loss and dilutional anemia. Transfused PRBC 1/7. H/H decreased but stable with no acute decreases Plan: Trend. Transfuse as needed Acute blood loss anemia 02/12/2019 02/15/19 Overview: History/Assessment: Transfused 2 PRBC intraop. Hct 26-27 Plan: Transfuse as needed Stress hyperglycemia 02/12/2019 12/30/2021 Overview: History: No DM history. Assessment: Perioperative insulin resistance and exacerbation of hyperglycemia. Plan: SSI to maintain BG <150 mg/dL. Abdominal aortic aneurysm 09/07/20122012 Overview: CT 09/15/12: 3.9 cm just above the aortic bifurcation Contusion of forearm 08/09/2005 08/09/2005 documented as of this encounter (statuses as of 02/09/2022) [facility] note* Diagnosis Onset Date Resolution Status Abdominal aortic aneurysm (AAA) chronic Essential hypertension chron ic H/O coronary artery bypass surgery February 12, 2019 chronic History of aortic valve replacement February 12, 2019 chronic Hyperlipidemia [facility] Work Phone: 1(114) 646-893901-06-2020 Evaluation note* Diagnosis Onset Date Resolution Status Kidney disease acute Abdominal aortic aneurysm (AAA) chronic Essential hypertension chron ic H/O coronary artery bypass surgery February 12, 2019 chronic History of aortic valve replacement February 12, 2019 chronic Hyperlipidemia [facility] Work Phone: 1(901) 577-640201-06-2020 Evaluation note* Diagnosis Onset Date Resolution Status Kidney disease acute Abdominal aortic aneurysm (AAA) chronic Essential hypertension chron ic H/O coronary artery bypass surgery February 12, 2019 chronic History of aortic valve replacement February 12, 2019 chronic Hyperlipidemia chronic Acute respiratory failure with hypoxia acute Hypoxia acute Pleural effusion acute Pneumonia acute Chronic kidney insufficiency chronic COPD exacerbation chronic [facility] Work Phone: 1([phone]) 541-876701-06-2020 Evaluation note* Diagnosis Onset Date Resolution Status Kidney disease acute Abdominal aortic aneurysm (AAA) chronic Essential hypertension chron ic H/O coronary artery bypass surgery February 12, 2019 chronic History of aortic valve replacement February 12, 2019 chronic Hyperlipidemia chronic Hypoxia acute Pneumonia acute Acute respiratory failure with hypoxia resolved COPD exacerbation resolved [facility] Work Phone: 1(901) 262-442801-06-2020 Evaluation note* Diagnosis Onset Date Resolution Status Abdominal aortic aneurysm (AAA) chronic Essential hypertension chron ic H/O coronary artery bypass surgery February 12, 2019 chronic History of aortic valve replacement February 12, 2019 chronic Hyperlipidemia chronic Kidney disease chronic Hypoxia acute Pneumonia acute Acute respiratory failure with hypoxia resolved COPD exacerbation resolved Lower extremity edema acute Abdominal aortic aneurysm (AAA) chronic 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 Essential hypertension chron ic History of aortic valve replacement February 12, 2019 chronic Hyperlipidemia chronic Kidney disease chronic [facility] Work Phone: [phone]) 375-521901-06-2020 Evaluation note* Diagnosis Onset Date Resolution Status Abdominal aortic aneurysm (AAA) chronic Essential hypertension chron ic H/O coronary artery bypass surgery February 12, 2019 chronic History of aortic valve replacement February 12, 2019 chronic Hyperlipidemia chronic Kidney disease chronic Hypoxia acute Pneumonia acute Acute respiratory failure with hypoxia resolved COPD exacerbation resolved Lower extremity edema acute Abdominal aortic aneurysm (AAA) chronic 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 Essential hypertension chron ic History of aortic valve replacement February 12, 2019 chronic Hyperlipidemia chronic Kidney disease chronic Lower extremity edema acute Abdominal aortic aneurysm (AAA) chronic 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 Essential hypertension chron ic History of aortic valve replacement February 12, 2019 chronic Hyperlipidemia chronic Kidney disease chronic Hypoxia acute COPD (chronic obstructive pulmonary disease) chronic Secondary pulmonary arterial hypertension chronic Tobacco dependence chronic Abdominal aortic aneurysm (AAA) chronic [facility] Work Phone: 1(325) [phone] Evaluation note* Diagnosis Onset Date Resolution Status Abdominal aortic aneurysm (AAA) chronic Essential hypertension chron ic H/O coronary artery bypass surgery February 12, 2019 chronic History of aortic valve replacement February 12, 2019 chronic Hyperlipidemia chronic Kidney disease chronic Hypoxia acute Pneumonia acute Acute respiratory failure with hypoxia resolved COPD exacerbation resolved Lower extremity edema acute Abdominal aortic aneurysm (AAA) chronic 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 Essential hypertension chron ic History of aortic valve replacement February 12, 2019 chronic Hyperlipidemia chronic Kidney disease chronic Lower extremity edema acute Abdominal aortic aneurysm (AAA) chronic 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 Essential hypertension chron ic History of aortic valve replacement February 12, 2019 chronic Hyperlipidemia chronic Kidney disease chronic Hypoxia acute COPD (chronic obstructive pulmonary disease) chronic Secondary pulmonary arterial hypertension chronic Tobacco dependence chronic Abdominal aortic aneurysm (AAA) chronic 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 acute [id number] acute Wound of left upper extremity acute [facility] Work Phone: Evaluation noteNo assessment information available [facility] Work Phone: Evaluation note* Diagnosis Abdominal aortic aneurysm (AAA) without rupture, unspecified part- Primary Edema of abdomen [facility] Diagnosis Ruptured abdominal aortic aneurysm (AAA), unspecified part- Primary [facility] Diagnosis Onset Date Resolution Status Hypoxia acute Pneumonia acute Acute respiratory failure with hypoxia resolved COPD exacerbation resolved Lower extremity edema acute Abdominal aortic aneurysm (AAA) chronic 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 Essential hypertension chron ic History of aortic valve replacement February 12, 2019 chronic Hyperlipidemia chronic Kidney disease chronic Lower extremity edema acute Abdominal aortic aneurysm (AAA) chronic 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 Essential hypertension chron ic History of aortic valve replacement February 12, 2019 chronic Hyperlipidemia chronic Kidney disease chronic Hypoxia acute COPD (chronic obstructive pulmonary disease) chronic Secondary pulmonary arterial hypertension chronic Tobacco dependence chronic Abdominal aortic aneurysm (AAA) chronic 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 acute [id number] acute Wound of left upper extremity acute [facility] Work Phone: Evaluation note* Diagnosis Onset Date Resolution Status Hypoxia acute Pneumonia acute Acute respiratory failure with hypoxia resolved COPD exacerbation resolved Lower extremity edema acute Abdominal aortic aneurysm (AAA) chronic 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 Essential hypertension chron ic History of aortic valve replacement February 12, 2019 chronic Hyperlipidemia chronic Kidney disease chronic Lower extremity edema acute Abdominal aortic aneurysm (AAA) chronic 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 Essential hypertension chron ic History of aortic valve replacement February 12, 2019 chronic Hyperlipidemia chronic Kidney disease chronic Hypoxia acute COPD (chronic obstructive pulmonary disease) chronic Secondary pulmonary arterial hypertension chronic Tobacco dependence chronic Abdominal aortic aneurysm (AAA) chronic 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 acute [id number] acute Wound of left upper extremity acute 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 acute [id number] acute Wound of left upper extremity acute Lower extremity edema acute Abdominal aortic aneurysm (AAA) chronic 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 Essential hypertension chron ic History of aortic valve replacement February 12, 2019 chronic Hyperlipidemia chronic Kidney disease [facility] Work Phone: Evaluation note* Diagnosis Onset Date Resolution Status Hypoxia acute Pneumonia acute Acute respiratory failure with hypoxia resolved COPD exacerbation resolved Lower extremity edema acute Abdominal aortic aneurysm (AAA) chronic 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 Essential hypertension chron ic History of aortic valve replacement February 12, 2019 chronic Hyperlipidemia chronic Kidney disease chronic Lower extremity edema acute Abdominal aortic aneurysm (AAA) chronic 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 Essential hypertension chron ic History of aortic valve replacement February 12, 2019 chronic Hyperlipidemia chronic Kidney disease chronic Hypoxia acute COPD (chronic obstructive pulmonary disease) chronic Secondary pulmonary arterial hypertension chronic Tobacco dependence chronic Abdominal aortic aneurysm (AAA) chronic 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 acute [id number] acute Wound of left upper extremity acute Lower extremity edema acute Abdominal aortic aneurysm (AAA) chronic 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 Essential hypertension chron ic History of aortic valve replacement February 12, 2019 chronic Hyperlipidemia chronic Kidney disease chronic 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 acute [id number] acute Wound of left upper extremity acute [facility] Work Phone: Evaluation note* Diagnosis Onset Date Resolution Status 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 acute [id number] acute Wound of left upper extremity acute Lower extremity edema acute Abdominal aortic aneurysm (AAA) chronic 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 Essential hypertension chron ic History of aortic valve replacement February 12, 2019 chronic Hyperlipidemia chronic Kidney disease chronic 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 acute [id number] acute Wound of left upper extremity acute COPD (chronic obstructive pulmonary disease) chronic Secondary pulmonary arterial hypertension chronic Tobacco dependence [facility] Work Phone: Evaluation note* Diagnosis Onset Date Resolution Status S/P AAA repair chronic COPD (chronic obstructive pulmonary disease) chronic Smoking greater than 40 pack years chronic Abdominal aortic aneurysm (AAA) chronic 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 Essential hypertension chron ic History of aortic valve replacement February 12, 2019 chronic Hyperlipidemia chronic Smoking greater than 40 pack years [facility] Work Phone: Evaluation note* Diagnosis Onset Date Resolution Status COPD (chronic obstructive pulmonary disease) chronic Smoking greater than 40 pack years chronic Abdominal aortic aneurysm (AAA) chronic 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 Essential hypertension chron ic History of aortic valve replacement February 12, 2019 chronic Hyperlipidemia chronic Smoking greater than 40 pack years [facility] Work Phone: Evaluation note* Diagnosis Malignant neoplasm of urinary bladder, unspecified site (HCC) [facility] Diagnosis Malignant neoplasm of urinary bladder, unspecified site (HCC)- Primary Nocturia Hematuria, gross Gross hematuria documented in this encounter [facility] note* Diagnosis Malignant neoplasm of urinary bladder, unspecified site (HCC)- Primary Malignant neoplasm of urinary bladder, unspecified site (HCC) [facility]* Diagnosis Malignant neoplasm of urinary bladder, unspecified site (HCC)- Primary Hematuria, gross Gross hematuria Malignant neoplasm of urinary bladder, unspecified site (HCC) Gross hematuria [facility]* Diagnosis Preop testing- Primary Preoperative examination, unspecified 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lummi heart without angina pectoris Essential hypertension Unspecified essential hypertension Hyperlipidemia, unspecified hyperlipidemia type Centrilobular emphysema (HCC) Other emphysema Type 2 diabetes mellitus without complication, without long-term current use of insulin (HCC) Chronic kidney disease, unspecified CKD stage Malignant neoplasm of urinary bladder, unspecified site (HCC) [C67.9] Gross hematuria [R31.0] Gross hematuria Malignant neoplasm of urinary bladder, unspecified site (HCC) Gross hematuria * Assessment & Plan Note - Corrine Pichardo APRN.CNP - 08/16/2024 10:34 AM EDTAssociated Problem(s): CKD (chronic kidney disease) Assessment: 08/01/2024 BUN/Cr 34/1.54 * Assessment & Plan Note - Corrine Pichardo APRN.CNP - 08/16/2024 10:34 AM EDTAssociated Problem(s): Type 2 diabetes mellitus without complication, without long-term current useof insulin (HCC) Assessment: Diet controlled * Assessment & Plan Note - Corrine Pichardo APRN.CNP - 08/16/2024 10:32 AM EDTAssociated Problem(s): Centrilobular emphysema (HCC) Assessment: Albuterol as needed; Trelegy as scheduled. Patient denies hospitalizations or pneumoniawithin 6 weeks. * Assessment & Plan Note - Corrine Pichardo APRN.CNP - 08/16/2024 10:31 AM EDTAssociated Problem(s): Hyperlipidemia Assessment: taking rosuvastatin 5 mg daily * Assessment & Plan Note - Corrine Pichardo APRN.CNP - 08/16/2024 10:31 AM EDTAssociated Problem(s): Essential hypertension Assessment: taking taking metoprolol; amlodipine * Assessment & Plan Note - Corrine Pichardo APRN.CNP - 08/16/2024 10:30 AM EDTAssociated Problem(s): 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lummi heart without angina pectoris Assessment: Followed by [facility] - H/O CABG - taking aspirin Plan: Patient instructed to notify surgeon and prescriber for preop instructions. 04/17/2021 Stress Test CONCLUSIONS: 1. SPECT Perfusion Study: Normal. 2. There is no scintigraphic evidence for inducible ischemia. 3. No evidence of scarred myocardium. 4. Left ventricle is normal in size. The left ventricle systolic function is normal. 5. Right ventricle is normal in size. The right ventricle systolic function is normal. 6. This is a low risk scan. Gated Stress FBP Gated Rest FBP LVEF % 71 70 12/28/2021 Echo Impression CONCLUSIONS: - Exam indication: Re-evaluation of known ascending aortic dilatation to establish baseline - This is a limited bedside echo performed by the J31 fellow. - LV and RV systolic function preserved and similar to prior echo. - No significant AR, dissection flap in ascending aorta, or pericardial effusion noted. - Aortic valve prosthesis noted with mild calcification. - For a more detailed study, please obtain a formal TTE. - Exam was compared with the prior echocardiographic exam performed on 09/29/2020 (Jennifer). Limited study. * Assessment & Plan Note - Corrine Pichardo APRN.CNP - 08/16/2024 7:26 AM EDT Associated Problem(s): Preop testing Assessment : See Note for medical conditions which may affect kirstie-operative course was addressed in visit today. [facility] Diagnosis Preop testing- Primary Preoperative examination, unspecified 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lummi heart without angina pectoris Essential hypertension Unspecified essential hypertension Hyperlipidemia, unspecified hyperlipidemia type Centrilobular emphysema (HCC) Other emphysema Type 2 diabetes mellitus without complication, without long-term current use of insulin (HCC) Chronic kidney disease, unspecified CKD stage Malignant neoplasm of urinary bladder, unspecified site (HCC) [C67.9] Gross hematuria [R31.0] Gross hematuria Malignant neoplasm of urinary bladder, unspecified site (HCC)- Primary Other hydronephrosis documented in this encounter [facility] note* Diagnosis Preop testing- Primary Preoperative examination, unspecified 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lummi heart without angina pectoris Essential hypertension Unspecified essential hypertension Hyperlipidemia, unspecified hyperlipidemia type Centrilobular emphysema (HCC) Other emphysema Type 2 diabetes mellitus without complication, without long-term current use of insulin (HCC) Chronic kidney disease, unspecified CKD stage Malignant neoplasm of urinary bladder, unspecified site (HCC) [C67.9] Gross hematuria [R31.0] Gross hematuria Malignant neoplasm of urinary bladder, unspecified site (HCC)- Primary Hematuria, gross Gross hematuria [facility] Diagnosis Preop testing- Primary Preoperative examination, unspecified 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lummi heart without angina pectoris Essential hypertension Unspecified essential hypertension Hyperlipidemia, unspecified hyperlipidemia type Centrilobular emphysema (HCC) Other emphysema Type 2 diabetes mellitus without complication, without long-term current use of insulin (HCC) Chronic kidney disease, unspecified CKD stage Malignant neoplasm of urinary bladder, unspecified site (HCC) [C67.9] Gross hematuria [R31.0] Gross hematuria Malignant neoplasm of urinary bladder, unspecified site (HCC)- Primary documented in this encounter [facility] note* Diagnosis Preop testing- Primary Preoperative examination, unspecified 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lummi heart without angina pectoris Essential hypertension Unspecified essential hypertension Hyperlipidemia, unspecified hyperlipidemia type Centrilobular emphysema (HCC) Other emphysema Type 2 diabetes mellitus without complication, without long-term current use of insulin (HCC) Chronic kidney disease, unspecified CKD stage Malignant neoplasm of urinary bladder, unspecified site (HCC) [C67.9] Gross hematuria [R31.0] Gross hematuria Malignant neoplasm of overlapping sites of bladder (HCC)- Primary Malignant neoplasm of other specified sites of bladder ROSALIE (acute kidney injury) Acute kidney failure, unspecified Hydroureter on left Hydroureter documented [facility]* Diagnosis Preop testing- Primary Preoperative examination, unspecified 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lummi heart without angina pectoris Essential hypertension Unspecified essential hypertension Hyperlipidemia, unspecified hyperlipidemia type Centrilobular emphysema (HCC) Other emphysema Type 2 diabetes mellitus without complication, without long-term current use of insulin (HCC) Chronic kidney disease, unspecified CKD stage Malignant neoplasm of urinary bladder, unspecified site (HCC) [C67.9] Gross hematuria [R31.0] Gross hematuria Malignant neoplasm of trigone of urinary bladder (HCC)- Primary Malignant neoplasm of trigone of urinary bladder [facility] Preop testing- Primary Preoperative examination, unspecified 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lummi heart without angina pectoris Essential hypertension Unspecified essential hypertension Hyperlipidemia, unspecified hyperlipidemia type Centrilobular emphysema (HCC) Other emphysema Type 2 diabetes mellitus without complication, without long-term current use of insulin (HCC) Chronic kidney disease, unspecified CKD stage Malignant neoplasm of urinary bladder, unspecified site (HCC) [C67.9] Gross hematuria [R31.0] Gross hematuria Malignant neoplasm of overlapping sites of bladder (HCC) Malignant neoplasm of other specified sites of bladder ROSALIE (acute kidney injury) Acute kidney failure, unspecified Hydroureter on left Hydroureter [facility] Diagnosis Preop testing- Primary Preoperative examination, unspecified 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lummi heart without angina pectoris Essential hypertension Unspecified essential hypertension Hyperlipidemia, unspecified hyperlipidemia type Centrilobular emphysema (HCC) Other emphysema Type 2 diabetes mellitus without complication, without long-term current use of insulin (HCC) Chronic kidney disease, unspecified CKD stage Malignant neoplasm of urinary bladder, unspecified site (HCC) [C67.9] Gross hematuria [R31.0] Gross hematuria Malignant neoplasm of urinary bladder, unspecified site (HCC) Other hydronephrosis [facility] Additional Instructions Your urine sample showed signs of infection and therefore take the antibiotic as directed to help resolve this. Your CT scan appeared to show a stone within your urethra. This can also be a cause of pain and blood. Secondary to his follow-up with urology for repeat evaluation. If you develop a fever or have intractable pain please return to the ER for repeat evaluation. Continue with Tylenol and or ibuprofen for [facility] Work Phone: Hospital Discharge instructionsAmbulatory Orders* Vascular Location: None Selected [facility] Work Phone: Reason for referral (narrative)* Outpatient Procedure (Routine) - Authorized Specialty Diagnoses / Procedures Referred By Jeff t Referred To [facility] Diagnoses Abdominal aortic aneurysm (AAA) without rupture, unspecified part Edema of abdomen Procedures US ABD AORTA COMPLETE VAS LAB DUP-SCAN AORTA IVC ILIAC VASCL/BPGS COMPLETE Jamin Wilcox MD [address] [place] [address] [facility] [place] [address] Referral ID Status Reason Start Date Expiration Date Visits Requested Visits Authorized [id number] Authorized Auto-Generat ed Referral 2 01/01/2023 1 1 [facility]No reason for referral information availableWGreen Cross Hospital Work Phone: Reason for visit Narrative* MRI/CT (Routine) - Closed Specialty Diagnoses / Procedures Referred By Jeff lundberg Referred To Contact CT IMAGING Diagnoses Malignant neoplasm of urinary bladder, unspecified site (HCC) Procedures CT CHEST W IVCON DIAGNOSTIC COMPUTED TOMOGRAPHY THORAX W/CONTRAST Codey Christianson MD [address] [id number] Phone: tel: fax: [id number] Referral ID Status Reason Start Date Expiration Date V isits Requested Visits Authorized [id number] Closed Auto-Generate d Referral 07/26/2024 08/25/2025 1 1 [facility] Advance Directives No Advanced Directives Records FoundDocuments on File Type Date 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 Advance Directive(s) 02/06/2019 12:13 PM Date Activated Date Inactivated Comments 12/28/2021 2:50 PM 12/28/2021 8:54 PM Question Answer Comments Full Code Order Discussed With: Patient Documents on File Type Date 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 Advance Directive(s) 02/08/2019 1:40 PM Advance Directive(s) 02/06/2019 12:13 PM scanned in today Advance Directive(s) 02/06/2019 12:13 PM Advance Directive(s) 01/24/2019 2:53 PM Advance Directive Response Recorded Date/ Time Advance Directives Yes November 27, 2018 7:21am Living Will Yes November 27 7:21am Power of Drum Operator Yes November 27, 2018 7:21am Advance Directive Response Recorded Date/ Time Advance Directives Yes November 27, 2018 6:21am Living Will Yes December 28, 022 10:34am Power of Drum Operator No December 28, 2021 10:34am Latest Code Status on File Code Status Date Activated Date Inactivated Comments Full Code 12/28/2021 2:50 PM 12/28/2021 8:54 PM Full Code Order Discussed With: Patient Documents on File Type Date 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 Advance Directive(s) 02/06/2019 12:13 PM Latest Code Status on File Code Status Date Activated Date Inactivated Comments Full Code 12/28/2021 2:50 PM 12/28/2021 8:54 PM Advance Directive Response Recorded Date/ Time Advance Directives Yes November 27, 2018 6:21am Living Will Yes March 02 9:10am Power of Drum Operator No March 02, 2022 9:10am Advance Directive Response Recorded Date/ Time Advance Directives Yes November 27, 2018 6:21am Living Will Yes March 02 4:52pm Power of Drum Operator No March 02, 2022 4:52pm Advance Directive Response Recorded Date/ Time Advance Directives Yes November 27, 2018 6:21am Living Will No March 22, 2 023 5:01pm Power of Drum Operator No March 22, 2022 5:01pm Advance Directive Response Recorded Date/ Time Advance Directives Yes November 27, 2018 7:21am Living Will No March 22, 2 023 6:01pm Power of Drum Operator No March 22, 2022 6:01pm Advance Directive Response Recorded Date/ Time Living Will No March 22, 2 023 6:01pm Do you have a Healthcare Power of Drum Operator? No March 22, 2022 6:01pm Living Will Yes January 08 11:15am Do you have a Healthcare Power of Drum Operator? Yes January 09, 2024 11:15am Name of Medical Power of Drum Operator DELTA CABRAL January 09, 2024 11:15am Advance Directives Yes November 27, 2018 7:21am Advance Directive Response Recorded Date/ Time Living Will No March 22, 2 023 6:01pm Do you have a Healthcare Pow er of Drum Operator? No March 22, 2022 6:01pm Living Will Yes May 16, 2024 10:19pm Do you have a Healthcare Pow er of Drum Operator? Yes May 16, 2024 10:19pm Name of Medical Power of Drum Operator daughter Delta Cabral May 16, 2024 10:19pm Living Will Yes January 08 11:15am Do you have a Healthcare Pow er of Drum Operator? Yes January 09, 2024 11:15am Name of Medical Power of Drum Operator DELTA CABRAL January 09, 2024 11:15am Advance Directives Yes November 27, 2018 7:21am Advance Directive Response Recorded Date/ Time Living Will No March 22, 023 6:01pm Do you have a Healthcare Pow er of Drum Operator? No March 22, 2022 6:01pm Advance Directives Yes June 15, 2024 8:41am Living Will Yes May 16, 2024 10:19pm Do you have a Healthcare Pow er of Drum Operator? Yes May 16, 2024 10:19pm Name of Medical Power of Drum Operator daughter Delta Cabral May 16, 2024 10:19pm Advance Directive Response Recorded Date/ Time Living Will No March 22 023 6:01pm Do you have a Healthcare Pow er of Drum Operator? No March 22, 2022 6:01pm Advance Directives Yes June 15, 2024 8:41am Living Will Yes May 16, 2024 10:19pm Do you have a Healthcare Pow er of Drum Operator? Yes May 16, 2024 10:19pm Name of Medical Power of Drum Operator jatin Cabral May 16, 2024 10:19pm Do you have a Healthcare Pow er of Drum Operator? No June 13, 2024 10:26am Advance Directive Response Recorded Date/ Time Living Will No March 22, 023 6:01pm Do you have a Healthcare Pow er of Drum Operator? No March 22, 2022 6:01pm Advance Directives Yes June 15, 2024 8:41am Living Will Yes May 16, 2024 10:19pm Do you have a Healthcare Pow er of Drum Operator? Yes May 16, 2024 10:19pm Name of Medical Power of Drum Operator daughter Delta Cabral May 16, 2024 10:19pm Do you have a Healthcare Pow er of Drum Operator? No June 27, 2024 3:48pm Date Activated Date Inactivated Comments 12/28/2021 2:50 PM 12/28/2021 8:54 PM Question Answer Comments Full Code Order Discussed With: Patient Advance Directive Response Recorded Date/ Time Advance Directives Yes June 15, 2024 8:41am Living Will Yes May 16, 2024 10:19pm Do you have a Healthcare Pow er of Drum Operator? Yes May 16, 2024 10:19pm Name of Medical Power of Drum Operator daughter Delta Cabral May 16, 2024 10:19pm Do you have a Healthcare Pow er of Drum Operator? No June 27, 2024 3:48pm Chief Complaint and Reason for Visit Chief Complaint 6-9 M FU SCREENING, TOBACCO ABUSE Reason for Visit Abdominal aortic ane urysm (AAA) Essential hypertension H/O coronary artery bypass surgery History of aortic valve replacement Hyperlipidemia Chief Complaint ABD Chief Complaint ABD 6 M FU E ORDERS/2 ORDERING DOCTORS EORDER Reason for Visit Kidney disease Abdominal aortic aneurysm (AAA) Essential hypertension H/O coronary artery bypass surgery History of aortic valve replacement Hyperlipidemia Chief Complaint ABD 6 M FU E ORDERS/2 ORDERING DOCTORS EORDER RUPTURED ABDOMINAL AORTIC ANEURYSM/RX HERE CAP RLL Shortness of breath Reason for Visit Kidney disease Abdominal aortic aneurysm (AAA) Essential hypertension H/O coronary artery bypass surgery History of aortic valve replacement Hyperlipidemia Acute respiratory failure with hypoxia Hypoxia Pleural effusion Pneumonia Chronic kidney insufficiency COPD exacerbation Chief Complaint ABD 6 M FU E ORDERS/2 ORDERING DOCTORS EORDER RUPTURED ABDOMINAL AORTIC ANEURYSM/RX HERE CAP RLL Shortness of breath CAP RLL CAP RLL Reason for Visit Kidney disease Abdominal aortic aneurysm (AAA) Essential hypertension H/O coronary artery bypass surgery History of aortic valve replacement Hyperlipidemia Acute respiratory failure with hypoxia Hypoxia Pleural effusion Pneumonia Chronic kidney insufficiency COPD exacerbation Chief Complaint ABD 6 M FU E ORDERS/2 ORDERING DOCTORS EORDER RUPTURED ABDOMINAL AORTIC ANEURYSM/RX HERE CAP RLL Shortness of breath CAP RLL CAP RLL CHF Reason for Visit Kidney disease Abdominal aortic aneurysm (AAA) Essential hypertension H/O coronary artery bypass surgery History of aortic valve replacement Hyperlipidemia Hypoxia Pneumonia Acute respiratory failure with hypoxia COPD exacerbation Chief Complaint ABD 6 M FU E ORDERS/2 ORDERING DOCTORS EORDER RUPTURED ABDOMINAL AORTIC ANEURYSM/RX HERE CAP RLL Shortness of breath CAP RLL CAP RLL CHF EVERYTHING CHF per BASKETBALL COMMENTATOR /L.Katelynson Reason for Visit Abdominal aortic ane urysm (AAA) Essential hypertension H/O coronary artery bypass surgery History of aortic valve replacement Hyperlipidemia Kidney disease Hypoxia Pneumonia Acute respiratory failure with hypoxia COPD exacerbation Lower extremity edema Abdominal aortic aneurysm (AAA) Atherosclerotic heart disease of lummi coronary artery without angina pectoris Essential hypertension History of aortic valve replacement Hyperlipidemia Kidney disease Chief Complaint ABD 6 M FU E ORDERS/2 ORDERING DOCTORS EORDER RUPTURED ABDOMINAL AORTIC ANEURYSM/RX HERE CAP RLL Shortness of breath CAP RLL CAP RLL CHF EVERYTHING CHF per BASKETBALL COMMENTATOR /L.Lorson EORDER PER [facility] F/U BILAT LOWER PAIN Amb Documentation EORDER Reason for Visit Abdominal aortic ane urysm (AAA) Essential hypertension H/O coronary artery bypass surgery History of aortic valve replacement Hyperlipidemia Kidney disease Hypoxia Pneumonia Acute respiratory failure with hypoxia COPD exacerbation Lower extremity edema Abdominal aortic aneurysm (AAA) Atherosclerotic heart disease of lummi coronary artery without angina pectoris Essential hypertension History of aortic valve replacement Hyperlipidemia Kidney disease Lower extremity edema Abdominal aortic aneurysm (AAA) Atherosclerotic heart disease of lummi coronary artery without angina pectoris Essential hypertension History of aortic valve replacement Hyperlipidemia Kidney disease Hypoxia COPD (chronic obstructive pulmonary disease) Secondary pulmonary arterial hypertension Tobacco dependence Abdominal aortic aneurysm (AAA) Chief Complaint ABD 6 M FU E ORDERS/2 ORDERING DOCTORS EORDER RUPTURED ABDOMINAL AORTIC ANEURYSM/RX HERE CAP RLL Shortness of breath CAP RLL CAP RLL CHF EVERYTHING CHF per BASKETBALL COMMENTATOR /L.Lorson EORDER PER [facility] F/U BILAT LOWER PAIN Amb Documentation EORDER FOOT PAIN wound wound Reason for Visit Abdominal aortic ane urysm (AAA) Essential hypertension H/O coronary artery bypass surgery History of aortic valve replacement Hyperlipidemia Kidney disease Hypoxia Pneumonia Acute respiratory failure with hypoxia COPD exacerbation Lower extremity edema Abdominal aortic aneurysm (AAA) Atherosclerotic heart disease of lummi coronary artery without angina pectoris Essential hypertension History of aortic valve replacement Hyperlipidemia Kidney disease Lower extremity edema Abdominal aortic aneurysm (AAA) Atherosclerotic heart disease of lummi coronary artery without angina pectoris Essential hypertension History of aortic valve replacement Hyperlipidemia Kidney disease Hypoxia COPD (chronic obstructive pulmonary disease) Secondary pulmonary arterial hypertension Tobacco dependence Abdominal aortic aneurysm (AAA) 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 [id number] Wound of left upper extremity Chief Complaint EORDER RUPTURED ABDOMINAL AORTIC ANEURYSM/RX HERE CAP RLL Shortness of breath CAP RLL CAP RLL CHF EVERYTHING CHF per BASKETBALL COMMENTATOR /L.Lorson EORDER PER [facility] F/U BILAT LOWER PAIN Amb Documentation EORDER FOOT PAIN wound wound wound wound J44.9 - Chronic obstructive pulmonary disease, uns J44.9 - Chronic obstructive pulmonary disease, uns wound wound Reason for Visit Hypoxia Pneumonia Acute respiratory failure with hypoxia COPD exacerbation Lower extremity edema Abdominal aortic aneurysm (AAA) Atherosclerotic heart disease of lummi coronary artery without angina pectoris Essential hypertension History of aortic valve replacement Hyperlipidemia Kidney disease Lower extremity edema Abdominal aortic aneurysm (AAA) Atherosclerotic heart disease of lummi coronary artery without angina pectoris Essential hypertension History of aortic valve replacement Hyperlipidemia Kidney disease Hypoxia COPD (chronic obstructive pulmonary disease) Secondary pulmonary arterial hypertension Tobacco dependence Abdominal aortic aneurysm (AAA) 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 [id number] Wound of left upper extremity Chief Complaint EORDER RUPTURED ABDOMINAL AORTIC ANEURYSM/RX HERE CAP RLL Shortness of breath CAP RLL CAP RLL CHF EVERYTHING CHF per BASKETBALL COMMENTATOR /L.Abad EORDER PER [facility] F/U BILAT LOWER PAIN Amb Documentation EORDER FOOT PAIN wound wound wound wound J44.9 - Chronic obstructive pulmonary disease, uns J44.9 - Chronic obstructive pulmonary disease, uns wound wound J44.9 - Chronic obstructive pulmonary disease, uns J44.9 - Chronic obstructive pulmonary disease, uns wound wound 4-6 WK F/U EORDER Reason for Visit Hypoxia Pneumonia Acute respiratory failure with hypoxia COPD exacerbation Lower extremity edema Abdominal aortic aneurysm (AAA) Atherosclerotic heart disease of lummi coronary artery without angina pectoris Essential hypertension History of aortic valve replacement Hyperlipidemia Kidney disease Lower extremity edema Abdominal aortic aneurysm (AAA) Atherosclerotic heart disease of lummi coronary artery without angina pectoris Essential hypertension History of aortic valve replacement Hyperlipidemia Kidney disease Hypoxia COPD (chronic obstructive pulmonary disease) Secondary pulmonary arterial hypertension Tobacco dependence Abdominal aortic aneurysm (AAA) 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 [id number] Wound of left upper extremity 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 [id number] Wound of left upper extremity Lower extremity edema Abdominal aortic aneurysm (AAA) Atherosclerotic heart disease of lummi coronary artery without angina pectoris Essential hypertension History of aortic valve replacement Hyperlipidemia Kidney disease Chief Complaint EORDER RUPTURED ABDOMINAL AORTIC ANEURYSM/RX HERE CAP RLL Shortness of breath CAP RLL CAP RLL CHF EVERYTHING CHF per BASKETBALL COMMENTATOR /L.Lorson EORDER PER [facility] F/U BILAT LOWER PAIN Amb Documentation EORDER FOOT PAIN wound wound wound wound J44.9 - Chronic obstructive pulmonary disease, uns J44.9 - Chronic obstructive pulmonary disease, uns wound wound J44.9 - Chronic obstructive pulmonary disease, uns J44.9 - Chronic obstructive pulmonary disease, uns wound 4-6 WK F/U EORDER wound wound Reason for Visit Hypoxia Pneumonia Acute respiratory failure with hypoxia COPD exacerbation Lower extremity edema Abdominal aortic aneurysm (AAA) Atherosclerotic heart disease of lummi coronary artery without angina pectoris Essential hypertension History of aortic valve replacement Hyperlipidemia Kidney disease Lower extremity edema Abdominal aortic aneurysm (AAA) Atherosclerotic heart disease of lummi coronary artery without angina pectoris Essential hypertension History of aortic valve replacement Hyperlipidemia Kidney disease Hypoxia COPD (chronic obstructive pulmonary disease) Secondary pulmonary arterial hypertension Tobacco dependence Abdominal aortic aneurysm (AAA) 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 [id number] Wound of left upper extremity Lower extremity edema Abdominal aortic aneurysm (AAA) Atherosclerotic heart disease of lummi coronary artery without angina pectoris Essential hypertension History of aortic valve replacement Hyperlipidemia Kidney disease 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 [id number] Wound of left upper extremity Chief Complaint RUPTURED ABDOMINAL A ORTIC ANEURYSM/RX HERE CAP RLL Shortness of breath CAP RLL CAP RLL CHF EVERYTHING CHF per BASKETBALL COMMENTATOR /LCaity EORDER PER [facility] F/U BILAT LOWER PAIN Amb Documentation EORDER FOOT PAIN wound wound wound wound J44.9 - Chronic obstructive pulmonary disease, uns J44.9 - Chronic obstructive pulmonary disease, uns wound wound J44.9 - Chronic obstructive pulmonary disease, uns J44.9 - Chronic obstructive pulmonary disease, uns wound 4-6 WK F/U EORDER wound wound wound Reason for Visit Hypoxia Pneumonia Acute respiratory failure with hypoxia COPD exacerbation Lower extremity edema Abdominal aortic aneurysm (AAA) Atherosclerotic heart disease of lummi coronary artery without angina pectoris Essential hypertension History of aortic valve replacement Hyperlipidemia Kidney disease Lower extremity edema Abdominal aortic aneurysm (AAA) Atherosclerotic heart disease of lummi coronary artery without angina pectoris Essential hypertension History of aortic valve replacement Hyperlipidemia Kidney disease Hypoxia COPD (chronic obstructive pulmonary disease) Secondary pulmonary arterial hypertension Tobacco dependence Abdominal aortic aneurysm (AAA) 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 [id number] Wound of left upper extremity Lower extremity edema Abdominal aortic aneurysm (AAA) Atherosclerotic heart disease of lummi coronary artery without angina pectoris Essential hypertension History of aortic valve replacement Hyperlipidemia Kidney disease 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 [id number] Wound of left upper extremity Chief Complaint wound wound J44.9 - Chronic obstructive pulmonary disease, uns J44.9 - Chronic obstructive pulmonary disease, uns wound wound J44.9 - Chronic obstructive pulmonary disease, uns J44.9 - Chronic obstructive pulmonary disease, uns wound 4-6 WK F/U EORDER wound wound wound wound 3 M FU Reason for Visit 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 [id number] Wound of left upper extremity Lower extremity edema Abdominal aortic aneurysm (AAA) Atherosclerotic heart disease of lummi coronary artery without angina pectoris Essential hypertension History of aortic valve replacement Hyperlipidemia Kidney disease 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 [id number] Wound of left upper extremity COPD (chronic obstructive pulmonary disease) Secondary pulmonary arterial hypertension Tobacco dependence Chief Complaint wound J44.9 - Chronic obstructive pulmonary disease, uns J44.9 - Chronic obstructive pulmonary disease, uns wound wound J44.9 - Chronic obstructive pulmonary disease, uns J44.9 - Chronic obstructive pulmonary disease, uns wound 4-6 WK F/U EORDER wound wound wound wound 3 M FU Reason for Visit 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 [id number] Wound of left upper extremity Lower extremity edema Abdominal aortic aneurysm (AAA) Atherosclerotic heart disease of lummi coronary artery without angina pectoris Essential hypertension History of aortic valve replacement Hyperlipidemia Kidney disease 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 [id number] Wound of left upper extremity COPD (chronic obstructive pulmonary disease) Secondary pulmonary arterial hypertension Tobacco dependence Chief Complaint S/P AAA REPAIR, CKD Chief Complaint S/P AAA REPAIR, CKD S/P AAA REPAIR Chief Complaint S/P AAA REPAIR, CKD S/P AAA REPAIR F/U FROM TESTING 6 M FU TOBACO 1 Y FU INT LABS Reason for Visit S/P AAA repair COPD (chronic obstructive pulmonary disease) Smoking greater than 40 pack years Abdominal aortic aneurysm (AAA) Atherosclerotic heart disease of lummi coronary artery without angina pectoris Essential hypertension History of aortic valve replacement Hyperlipidemia Smoking greater than 40 pack years Chief Complaint 6 M FU TOBACO 1 Y FU INT LABS VALVE REPLACEMENT EVAL Amb Documentation Reason for Visit COPD (chronic obstru ctive pulmonary disease) Smoking greater than 40 pack years Abdominal aortic aneurysm (AAA) Atherosclerotic heart disease of lummi coronary artery without angina pectoris Essential hypertension History of aortic valve replacement Hyperlipidemia Smoking greater than 40 pack years Chief Complaint Admit Date Hernia, Open Inguinal w/ Mesh January 072023 9:35am Hernia, Open Inguinal w/ Mesh January 072023 10:05am INGUINAL HERNIA DOS 01/17February 02, 2024 8:27am NICOTINE DEPENDENCE February 21, 2024 7 :36am 10 m fu March 23, 2024 12:36pm Reason for Visit Admit Date S/P inguinal hernia repair January 8:27am COPD (chronic obstructive pulmonary dise ase) March 23, 2024 12:36pm Smoking greater than 40 pack years 2024 12:36pm Chief Complaint Admit Date Hernia, Open Inguinal w/ Mesh January 072023 9:35am Hernia, Open Inguinal w/ Mesh January 072023 10:05am INGUINAL HERNIA DOS 01/17February 02, 2024 8:27am NICOTINE DEPENDENCE February 21, 2024 7 :36am 10 m fu March 23, 2024 12:36pm gu complaint May 16, 2024 10:0 8pm Chief Complaint Admit Date NICOTINE DEPENDENCE February 21, 2024 7 :36am 10 m fu March 23, 2024 12:36pm gu complaint May 16, 2024 10:0 8pm SURGERY CLEARANCE (DR. MCCLENDON) June 19, 2024 8:36am Reason for Visit Admit Date COPD (chronic obstructive pulmonary dise ase) March 23, 2024 12:36pm Smoking greater than 40 pack years 2024 12:36pm Chief Complaint Admit Date 10 m fu March 23, 2024 12:36pm gu complaint May 16, 2024 10:0 8pm SURGERY CLEARANCE (DR. MCCLENDON) June 19, 2024 8:36am Gross hematuria June 21, 2024 6:25a m Cysto,Transurethal Resec Bladder,[place] June 27, 2024 6:25am Reason for Visit Admit Date COPD (chronic obstructive pulmonary dise ase) March 23, 2024 12:36pm Smoking greater than [address] [facility]2024 12:36pm Pre-operative cardiovascular examination June 19, 2024 8:36am Abdominal aortic aneurysm (AAA) June 8:36am Atherosclerotic heart diseas e of lummi coronary artery without angina pectoris June 19, 2024 8:36am Essential hypertension June 19, 2024 8: 36am History of aortic valve replacement June 19, 2024 8:36am Hyperlipidemia June 19, 2024 8:36a m Smoking greater than 40 pack years June 072024 8:36am Chief Complaint Admit Date 10 m fu March 23, 2024 12:36pm gu complaint May 16, 2024 10:0 8pm SURGERY CLEARANCE (DR. MCCLENDON) June 19, 2024 8:36am Gross hematuria June 21, 2024 6:25a m Cysto,Transurethal Resec Bladder,[place] June 27, 2024 3:22pm Chief Complaint Admit Date gu complaint May 16, 2024 10:0 8pm SURGERY CLEARANCE (DR. MCCLENDON) June 19, 2024 8:36am Gross hematuria June 21, 2024 6:25a m Cysto,Transurethal Resec Bladder,[place] June 27, 2024 3:22pm 1 Y FU August 30, 2024 7:53 am Reason for Visit Admit Date Pre-operative cardiovascular examination June 19, 2024 8:36am Abdominal aortic aneurysm (AAA) June 8:36am Atherosclerotic heart diseas e of lummi coronary artery without angina pectoris June 19, 2024 8:36am Essential hypertension June 19, 2024 8: 36am History of aortic valve replacement June 19, 2024 8:36am Hyperlipidemia June 19, 2024 8:36a m Smoking greater than 40 pack years June 072024 8:36am Pre-operative cardiovascular examination August 30, 2024 7:53am Abdominal aortic aneurysm (AAA) August 7:53am Atherosclerotic heart diseas e of lummi coronary artery without angina pectoris August 30, 2024 7:53am Essential hypertension August 30, 2024 7 :53am History of aortic valve replacement August 30, 2024 7:53am Hyperlipidemia August 30, 2024 7:53 am Smoking greater than 40 pack years August 30, 2024 7:53am Family History No Family History Records Found Relationship Condition Age at Onset Recorded Date/T veronica sister Asthma Unknown mother Arthritis Unknown Diabetes mellitus Unknown brother Malignant neoplasm Unknown Medications Administered Section Inactive Administered Medications - up to 3 most recent administrations Medication Order MAR Action Action Date Dose Rate Site fentaNYL 50 mcg/mL 25 mcg injection (SUBLIMAZE) 25 mcg, INTRAVENOUS, ONCE, 1 dose, On Tue12/28/21 at 1530 Given 12/28/2021 1:46 PM EST 25 mcg fentaNYL 50 mcg/mL 25 mcg injection (SUBLIMAZE) 25 mcg, INTRAVENOUS, ONCE, 1 dose, On Tue12/28/21 at 1530 Given 12/28/2021 1:32 PM EST 25 mcg metoprolol 5 mg injection (LOPRESSOR) 5 mg, INTRAVENOUS, ONCE, 1 dose, On Tue12/28/21 at 1530, Administer IV push over 2-5 minutes. Given 12/28/2021 1:50 PM EST 5 mg metoprolol 5 mg injection (LOPRESSOR) 5 mg, INTRAVENOUS, ONCE, 1 dose, On Tue12/28/21 at 1530, Administer IV push over 2-5 minutes. Given 12/28/2021 1:39 PM EST 5 mg metoprolol 5 mg injection (LOPRESSOR) 5 mg, INTRAVENOUS, ONCE, 1 dose, On Tue12/28/21 at 1530, Administer IV push over 2-5 minutes. Given 12/28/2021 1:15 PM EST 5 mg metoprolol 5 mg injection (LOPRESSOR) 5 mg, INTRAVENOUS, ONCE, 1 dose, On Tue12/28/21 at 1530, Administer IV push over 2-5 minutes. Given 12/28/2021 1:10 PM EST 5 mg sodium nitroprusside 50 mg in D5W 250 mL (NIPRIDE) 10-200 mcg/min (3-60 mL/hr), INTRAVENOUS, CONTINUOUS, Starting on Tue12/28/21 at 1530, Until Tue12/28/21 at 1556, Refrigerate - Protect From Light, Select One: Titrate, Choose target parameter: Systolic Blood Pressure (SBP), Titrate to a SBP (mmHg): Specify Range (mmHg), SBP lower limit (mmHg): 90, SBP upper limit (mmHg): 120, Starting Dose: 10-20 mcg/min or Continue at Current Infusion Rate, Titrate Amount/Interval: Titrate by 5-20 mcg/min every 5-10 minutes., Contact LIP: If dose adjusted by more than 120 mcg/min within 30 minutes., If this medication is paused for any duration of time and needs to be restarted: Restart at 10-20 mcg/min and titrate per order parameters. Rate/Dose Change 12/28/2021 1:51 PM EST 180 mcg/min 54 mL/hr Rate/Dose Change 12/28/2021 1:43 PM EST 150 mcg/min 45 mL/ hr Rate/Dose Change 12/28/2021 1:38 PM EST 120 mcg/min 36 mL/ hr Health Concerns Infection Onset Date Last Indicated Resolved Time COVID-19 Rule-Out 12/28/2021 12/28/2021 12/28/2021 4:16 PM EST Reason for Referral Specialty Diagnoses / Procedures Referred By Jeff lundberg Referred To Contact [facility] Diagnoses Ruptured abdominal aortic aneurysm (AAA), unspecified part Procedures CONSULT TO PHYSICAL THERAPY PHYSICAL THERAPY EVALUATION HIGH COMPLEX 45 MINS Jamin Wilcox MD [address] [place] [address] [facility] [place] [address] [place] [address] Referral ID Status Reason Start Date Expiration Date Visits Requested Visits Authorized [id number] Authorized PCP Requested Referral Auto-Generate d Referral 2 02/03/2023 99 99 Summary Purpose Additional Source Comments Source Comments (unrecognize d section and content) In the event this informatio n is protected by the Federal Confidentiality of Alcohol and Drug Abuse Patient Records regulations: The Federal rules restrict any use of the information to criminally investigate or prosecute any alcohol or drug abuse patient.[facility] the event this information is protected by the Federal Confidentiality of Alcohol and Drug Abuse Patient Records regulations: The Federal rules restrict any use of the information to criminally investigate or prosecute any alcohol or drug abuse patient.[facility] the event this information is protected by the Federal Confidentiality of Alcohol and Drug Abuse Patient Records regulations: The Federal rules restrict any use of the information to criminally investigate or prosecute any alcohol or drug abuse patient.[facility] the event this information is protected by the Federal Confidentiality of Alcohol and Drug Abuse Patient Records regulations: The Federal rules restrict any use of the information to criminally investigate or prosecute any alcohol or drug abuse patient.[facility] the event this information is protected by the Federal Confidentiality of Alcohol and Drug Abuse Patient Records regulations: The Federal rules restrict any use of the information to criminally investigate or prosecute any alcohol or drug abuse patient.[facility] the event this information is protected by the Federal Confidentiality of Alcohol and Drug Abuse Patient Records regulations: The Federal rules restrict any use of the information to criminally investigate or prosecute any alcohol or drug abuse patient.[facility] the event this information is protected by the Federal Confidentiality of Alcohol and Drug Abuse Patient Records regulations: The Federal rules restrict any use of the information to criminally investigate or prosecute any alcohol or drug abuse patient.[facility] the event this information is protected by the Federal Confidentiality of Alcohol and Drug Abuse Patient Records regulations: The Federal rules restrict any use of the information to criminally investigate or prosecute any alcohol or drug abuse patient.[facility]In the event this information is protected by the Federal Confidentiality of Alcohol and Drug Abuse Patient Records regulations: The Federal rules restrict any use of the information to criminally investigate or prosecute any alcohol or drug abuse patient.[facility]In the event this information is protected by the Federal Confidentiality of Alcohol and Drug Abuse Patient Records regulations: The Federal rules restrict any use of the information to criminally investigate or prosecute any alcohol or drug abuse patient.[facility]In the event this information is protected by the Federal Confidentiality of Alcohol and Drug Abuse Patient Records regulations: The Federal rules restrict any use of the information to criminally investigate or prosecute any alcohol or drug abuse patient.[facility]In the event this information is protected by the Federal Confidentiality of Alcohol and Drug Abuse Patient Records regulations: The Federal rules restrict any use of the information to criminally investigate or prosecute any alcohol or drug abuse patient.[facility]In the event this information is protected by the Federal Confidentiality of Alcohol and Drug Abuse Patient Records regulations: The Federal rules restrict any use of the information to criminally investigate or prosecute any alcohol or drug abuse patient.[facility]In the event this information is protected by the Federal Confidentiality of Alcohol and Drug Abuse Patient Records regulations: The Federal rules restrict any use of the information to criminally investigate or prosecute any alcohol or drug abuse patient.[facility]In the event this information is protected by the Federal Confidentiality of Alcohol and Drug Abuse Patient Records regulations: The Federal rules restrict any use of the information to criminally investigate or prosecute any alcohol or drug abuse patient.[facility]In the event this information is protected by the Federal Confidentiality of Alcohol and Drug Abuse Patient Records regulations: The Federal rules restrict any use of the information to criminally investigate or prosecute any alcohol or drug abuse patient.[facility]In the event this information is protected by the Federal Confidentiality of Alcohol and Drug Abuse Patient Records regulations: The Federal rules restrict any use of the information to criminally investigate or prosecute any alcohol or drug abuse patient.[facility]In the event this information is protected by the Federal Confidentiality of Alcohol and Drug Abuse Patient Records regulations: The Federal rules restrict any use of the information to criminally investigate or prosecute any alcohol or drug abuse patient.[facility] HospitalIn the event this information is protected by the Federal Confidentiality of Alcohol and Drug Abuse Patient Records regulations: The Federal rules restrict any use of the information to criminally investigate or prosecute any alcohol or drug abuse patient.[facility] HospitalIn the event this information is protected by the Federal Confidentiality of Alcohol and Drug Abuse Patient Records regulations: The Federal rules restrict any use of the information to criminally investigate or prosecute any alcohol or drug abuse patient.[facility] HospitalIn the event this information is protected by the Federal Confidentiality of Alcohol and Drug Abuse Patient Records regulations: The Federal rules restrict any use of the information to criminally investigate or prosecute any alcohol or drug abuse patient.[facility]In the event this information is protected by the Federal Confidentiality of Alcohol and Drug Abuse Patient Records regulations: The Federal rules restrict any use of the information to criminally investigate or prosecute any alcohol or drug abuse patient.[facility] HospitalIn the event this information is protected by the Federal Confidentiality of Alcohol and Drug Abuse Patient Records regulations: The Federal rules restrict any use of the information to criminally investigate or prosecute any alcohol or drug abuse patient.[facility]In the event this information is protected by the Federal Confidentiality of Alcohol and Drug Abuse Patient Records regulations: The Federal rules restrict any use of the information to criminally investigate or prosecute any alcohol or drug abuse patient.[facility]In the event this information is protected by the Federal Confidentiality of Alcohol and Drug Abuse Patient Records regulations: The Federal rules restrict any use of the information to criminally investigate or prosecute any alcohol or drug abuse patient.[facility]In the event this information is protected by the Federal Confidentiality of Alcohol and Drug Abuse Patient Records regulations: The Federal rules restrict any use of the information to criminally investigate or prosecute any alcohol or drug abuse patient.[facility]In the event this information is protected by the Federal Confidentiality of Alcohol and Drug Abuse Patient Records regulations: The Federal rules restrict any use of the information to criminally investigate or prosecute any alcohol or drug abuse patient.[facility] HospitalIn the event this information is protected by the Federal Confidentiality of Alcohol and Drug Abuse Patient Records regulations: The Federal rules restrict any use of the information to criminally investigate or prosecute any alcohol or drug abuse patient.[facility] Reason for Visit (unrecogniz ed section and content) Reason Comments Patient Update Reason Comments Critical Care Transport Reason Comments Appointment Reason Comments Surgical Followup Reason Comments Radiology CT Specialty Diagnoses / Procedures Referred By Contac t Referred To Contact [facility] Diagnoses Malignant neoplasm of urinary bladder, unspecified site (HCC) Procedures CT CHEST W IVCON DIAGNOSTIC COMPUTED TOMOGRAPHY THORAX W/CONTRAST Codey Christianson MD [address] [place] [address] Phone: tel: fax: [place] [address] Referral ID Status Reason Start Date Expiration Date V isits Requested Visits Authorized [id number] Closed Auto-Generate d Referral 07/26/2024 08/25/2025 1 1 Reason Comments Bladder Cancer Reason Comments CASE 9822 Follow Up Reason Comments Established Patient Reason Comments Surgical Followup Orders Reason Comments CASE 9822 Discussion Reason Comments CASE 9822 Update Reason Comments Bladder Cancer Hematuria Reason Comments It Professional - Other Reason Comments It Professional - Other Introduction Reason Comments New Patient Reason Comments Orders Reason Comments Results Reason Comments Patient Education Reason Comments Radiology US Specialty Diagnoses / Procedures Referred By Contac t Referred To Contact [facility] Diagnoses Malignant neoplasm of overlapping sites of bladder (HCC) ROSALIE (acute kidney injury) Hydroureter on left Procedures US KIDNEY/BLADDER US RETROPERITONEAL REAL TIME W/IMAGE COMPLETE Anthony Rivers, DO [address] [facility] [address] Phone: tel: fax: [facility] [place] [address] Referral ID Status Reason Start Date Expiration Date V isits Requested Visits Authorized [id number] Closed Auto-Generate d Referral 09/05/2024 10/05/2025 [address] Specialty Diagnoses / Procedures Referred By Contac t Referred To Contact CT IMAGING Diagnoses Malignant neoplasm of urinary bladder, unspecified site (HCC) Other hydronephrosis Procedures CT ABD/PEL WO IVCON CT ABD & PELVIS W/O CONTRAST Stacy Gauthier MD [address] [place] [address] Phone: tel: fax: [id number] Referral ID Status Reason Start Date Expiration Date V isits Requested Visits Authorized [id number] Closed Auto-Generate d Referral 09/04/2024 09/20/2025 1 1 Care Teams (unrecognized sec tion and content) Hot Cell Technician Relationship Specialty Start Date End Date Padmini Carrasco MD [address] [facility], [place] [address] PCP - General Family Practice 01/24/19 Hot Cell Technician Relationship Specialty Start Date End Date Padmini Carrasco MD [address] [facility] [place] [address] PCP - General Family Medicine 01/24/19 Hot Cell Technician Relationship Specialty Start Date End Date Padmini Carrasco MD [address] [place] [address] PCP - General Family Medicine 01/24/19 Hot Cell Technician Relationship Specialty Start Date End Date Padmini Carrasco MD [address] [place] [address] [place], [place] [address] PCP - General Family Medicine 01/24/19 Hot Cell Technician Relationship Specialty Start Date End Date Padmini Carrasco MD [address] [place] [address], [place] [id number] PCP - General Family Medicine 01/24/19 Team Status: Active Member Role Status Dates Dr. Ezekiel Carrasco MD Family Provider Active Dr. Ezekiel Carrasco MD Primary Care Provider Activ e Team Status: Inactive Member Role Status Dates Dr. Ezekiel Carrasco MD Primary Care Provider, Refe rring Provider Active Tc Subramanian INSTALLATION TECH, INSTALLATION TECH-C Attending Provider Active Team Status: Active Member Role Status Dates Dr. Ezekiel Carrasco MD Primary Care Provider Activ e Dr. Nhan Garland MD Emergency Provider Active Dr. Beatris Banks DO Attending Provider Active Team Status: Inactive Member Role Status Dates Dr. Ezekiel Carrasco MD Primary Care Provider, Attending Provider, Referring Provider Active Team Status: Inactive Member Role Status Dates Dr. Ezekiel Carrasco MD Primary Care Provider Activ e Dr. Raymond Asencio DO Attending Provider, Emergency P carrillo Active Team Status: Inactive Member Role Status Dates Dr. Ezekiel Carrasco MD Primary Care Provider Activ e Tc Subramanian INSTALLATION TECH, INSTALLATION TECH-C Attending Provider, Referring Pro vider Active Team Status: Inactive Member Role Status Dates Dr. Ezekiel Carrasco MD Primary Care Provider Activ e Sherry Ahn NP-C Attending Provider, Referring Pr ovider Active Team Status: Inactive Member Role Status Dates Dr. Ezekiel Carrasco MD Primary Care Provider, Atte nding Provider Active Team Status: Active Member Role Status Dates Dr. Ezekiel Carrasco MD Primary Care Provider, Atte nding Provider Active Team Status: Active Member Role Status Dates Dr. Ezekiel Carrasco MD Primary Care Provider Activ e TYRON MATSON Attending Provider, Referring Provid er Active Team Status: Active Member Role Status Dates Dr. Ezekiel Carrasco MD Primary Care Provider Activ e Dr. Nhan Garland MD Emergency Provider Active Dr. Beatris Banks DO Admit Provider, Attending Provide r Active Team Status: Active Member Role Status Dates Dr. Ezekiel Carrasco MD Primary Care Provider Activ e Dr. Nhan Garland MD Emergency Provider Active Dr. Beatris Banks , Admit Provider, Att ending Provider, Other Provider Active Team Status: Inactive Member Role Status Dates Dr. Ezekiel Carrasco MD Primary Care Provider Activ e Dr. Nhan Garland MD Emergency Provider Active Dr. Beatris Banks DO Admit Provider, Attending Provide r Active Team Status: Inactive Member Role Status Dates Dr. Ezekiel Carrasco MD Primary Care Provider, Refe rring Provider Active Kasey Arenas DO Attending Provider Active Team Status: Active Member Role Status Dates Dr. Ezekiel Carrasco MD Primary Care Provider, Attending Provider, Referring Provider Active Team Status: Inactive Member Role Status Dates Dr. Ezekiel Carrasco MD Primary Care Provider Activ e Dr. Corey Brennan DO Emergency Provider Active Team Status: Inactive Member Role Status Dates Dr. Ezekiel Carrasco MD Primary Care Provider, Refe rring Provider Active Dr. Kwame Alex MD Attending Provider Active Team Status: Inactive Member Role Status Dates Dr. Ezekiel Carrasco MD Primary Care Provider, Refe rring Provider Active Carmina Tee INSTALLATION TECH, INSTALLATION TECH-C Attending Provider Active Team Status: Active Member Role Status Dates Dr. Ezekiel Carrasco MD Primary Care Provider Activ e Tc Subramanian INSTALLATION TECH, INSTALLATION TECH-C Attending Provider Active Team Status: Active Member Role Status Dates Dr. Ezekiel Carrasco MD Primary Care Provider Activ e Dr. Kwame Alex MD Attending Provider Active Team Status: Active Member Role Status Dates Dr. Ezekiel Carrasco MD Primary Care Provider Activ e Dr. Raheem Farrar MD Attending Provider Active Team Status: Inactive Member Role Status Dates Dr. Ezekiel Carrasco MD Primary Care Provider Activ e Dr. Corey Brennan DO Attending Provider, Emergency Provider Active Team Status: Active Member Role Status Dates Dr. Ezekiel Carrasco MD Primary Care Provider Activ e Tc Subramanian INSTALLATION TECH, INSTALLATION TECH-C Attending Provider, Referring Pro vider Active Team Status: Inactive Member Role Status Dates Dr. Ezekiel Carrasco MD Primary Care Provider Activ e Tonia Biedenharn PA, PA Attending Provider Active Tc Marsha Subramanian INSTALLATION TECH, INSTALLATION TECH-C Referring Provider Active Team Status: Active Member Role Status Dates Dr. Ezekiel Carrasco MD Primary Care Provider Activ e Tonia Biedenharn PA, PA Attending Provider, Other Pr ovider Active Team Status: Active Member Role Status Dates Dr. Ezekiel Carrasco MD Primary Care Provider Activ e Tonia Biedenharn PA, PA Attending Provider Active Team Status: Inactive Member Role Status Dates Dr. Ezekiel Carrasco MD Primary Care Provider Activ e Tc Subramanian INSTALLATION TECH, INSTALLATION TECH-C Attending Provider Active Team Status: Active Member Role Status Dates Dr. Ezekiel Carrasco MD Primary Care Provider Activ e Dr. Kwame Alex MD Attending Provider Active Tonia Biedenharn PA, PA Referring Provider Active Team Status: Active Member Role Status Dates Dr. Ezekiel Carrasco MD Primary Care Provider Activ e Carmina Tee INSTALLATION TECH, INSTALLATION TECH-C Referring Provider, Other Pr ovider Active Dr. Noe Suarez MD Attending Provider Active Team Status: Active Member Role Status Dates Dr. Ezekiel Carrasco MD Primary Care Provider Activ e Carmina Tee INSTALLATION TECH, INSTALLATION TECH-C Attending Provider, Referrin g Provider Active Team Status: Inactive Member Role Status Dates Dr. Ezekiel Carrasco MD Primary Care Provider Activ e Tonia Biedenharn PA, PA Attending Provider Active Team Status: Inactive Member Role Status Dates Dr. Ezekiel Carrasco MD Primary Care Provider Activ e Carmina Tee INSTALLATION TECH, INSTALLATION TECH-C Attending Provider, Referrin g Provider Active Team Status: Inactive Member Role Status Dates Dr. Ezekiel Carrasco MD Primary Care Provider, Refe rring Provider Active Isela Kwok PA, PA Attending Provider Active Team Status: Active Member Role Status Dates Dr. Ezekiel Carrasco MD Primary Care Provider Activ e Carmina Tee INSTALLATION TECH, INSTALLATION TECH-C Referring Provider, Other Pr ovider Active Dr. Bernardo Zuñiga DO Attending Provider Active Team Status: Active Member Role Status Dates Dr. Ezekiel Carrasco MD Primary Care Provider Activ e Isela Kwok PA, PA Attending Provider, Referr ing Provider Active Team Status: Inactive Member Role Status Dates Dr. Ezekiel Carrasco MD Primary Care Provider Activ e Isela Kwok PA, PA Attending Provider, Referr ing Provider Active Team Status: Inactive Member Role Status Dates Dr. Ezekiel Carrasco MD Primary Care Provider, Refe rring Provider Active Dr. Noe Saurez MD Attending Provider Active Team Status: Active Member Role Status Dates Dr. Ezekiel Carrasco MD Primary Care Provider Activ e Tonia Jenkins PA Attending Provider, Other Prov ider Active Team Status: Inactive Member Role Status Dates Dr. Ezekiel Carrasco MD Primary Care Provider Activ e KALPANA Richards Attending Provider Active Team Status: Active Member Role Status Dates Dr. Ezekiel Carrasco MD Primary Care Provider Activ e KALPANA Danielson Attending Provider, Referring Provid er Active Team Status: Inactive Member Role Status Dates Dr. Ezekiel Carrasco MD Primary Care Provider Activ e KALPANA Danielson Attending Provider, Referring Provid er Active Team Status: Inactive Member Role Status Dr. Ezekiel Carrasco MD Primary Care Provider, Refe rring Provider Active Farheen Alexander INSTALLATION TECH, INSTALLATION TECH-C Attending Provider Active Team Status: Active Member Role Status Dates Dr. Ezekiel Carrasco MD Primary Care Provider Activ e Dr. Kwame Alex MD Attending Provider Active KALPANA Danielson Referring Provider Active Team Status: Inactive Member Role Status Dates Dr. Ezekiel Carrasco MD Primary Care Provider Activ e Farheen Alexander INSTALLATION TECH, INSTALLATION TECH-C Attending Provider, Referring P carrillo Active Team Status: Active Member Role Status Dates Dr. Ezekiel Carrasco MD Primary Care Provider Activ e Farheen Alexander INSTALLATION TECH, INSTALLATION TECH-C Attending Provider Active Team Status: Active Member Role Status Dates Dr. Padmini Carrasco MD Family Provider Active Dr. Padmini Carrasco MD Primary Care Provider Acti ve Team Status: Inactive Member Role Status Dates Dr. Padmini Carrasco MD Primary Care Provider Acti ve Start: January 18, 2024 End: January 18, 2024 Dr. Marquise Barillas MD Attending Provider Active Start: January 18, 2024 End: January 18, 2024 Dr. Marquise Barillas MD Referring Provider Active Start: January 18, 2024 End: January 18, 2024 Team Status: Active Member Role Status Dates Dr. Padmini Carrasco MD Primary Care Provider Acti ve Start: January 18, 2024 Dr. Marquise Barillas MD Attending Provider Active Start: January 18, 2024 Dr. Marquise Barillas MD Referring Provider Active Start: January 18, 2024 Dr. Marquise Barillas MD Other Provider Active Start: January 18, 2024 Team Status: Inactive Member Role Status Dates Dr. Padmini Carrasco MD Primary Care Provider Acti ve Start: February 02, 2024 End: February 02, 2024 Dr. Padmini Carrasco MD Referring Provider Active Start: February 02, 2024 End: February 02, 2024 Dr. Marquise Barillas MD Attending Provider Active Start: February 02, 2024 End: February 02, 2024 Team Status: Inactive Member Role Status Dates Dr. Padmini Carrasco MD Primary Care Provider Acti ve Start: February 21, 2024 End: February 21, 2024 Carmina Tee INSTALLATION TECH, INSTALLATION TECH-C Attending Provider Active Start: February 21, 2024 End: February 21, 2024 Carmina Tee INSTALLATION TECH, INSTALLATION TECH-C Referring Provider Active Start: February 21, 2024 End: February 21, 2024 Team Status: Inactive Member Role Status Dates Dr. Padmini Carrasco MD Primary Care Provider Acti ve Start: March 23, 2024 End: March 23, 2024 Dr. Padmini Carrasco MD Referring Provider Active Start: March 23, 2024 End: March 23, 2024 Carmina Tee INSTALLATION TECH, INSTALLATION TECH-C Attending Provider Active Start: March 23, 2024 End: March 23, 2024 Team Status: Inactive Member Role Status Dates Dr. Padmini Carrasco MD Primary Care Provider Acti ve Start: May 10, 2024 End: May 10, 2024 Dr. Padmini Carrasco MD Attending Provider Active Start: May 10, 2024 End: May 10, 2024 Dr. Padmini Carrasco MD Referring Provider Active Start: May 10, 2024 End: May 10, 2024 Team Status: Active Member Role Status Dates Dr. Padmini Carrasco MD Primary Care Provider Acti ve Team Status: Inactive Member Role Status Dates Dr. Padmini Carrasco MD Primary Care Provider Acti ve Start: May 16, 2024 End: May 17, 2024 Dr. Jeffery Turpin DO Emergency Provider Active Start: May 16, 2024 End: May 17, 2024 Team Status: Inactive Member Role Status Dates Dr. Padmini Carrasco MD Primary Care Provider Acti ve Start: May 16, 2024 End: May 17, 2024 Dr. Jeffery Turpin DO Attending Provider Active Start: May 16, 2024 End: May 17, 2024 Dr. Jeffery Turpin DO Emergency Provider Active Start: May 16, 2024 End: May 17, 2024 Team Status: Inactive Member Role Status Dates Dr. Padmini Carrasco MD Primary Care Provider Acti ve Start: May 28, 2024 End: May 28, 2024 Dr. Pradip Mcclendon MD Attending Provider Active Start: May 28, 2024 End: May 28, 2024 Dr. Pradip Mcclendon MD Referring Provider Active Start: May 28, 2024 End: May 28, 2024 Team Status: Inactive Member Role Status Dates Dr. Padmini Carrasco MD Primary Care Provider Acti ve Start: June 19, 2024 End: June 19, 2024 Dr. Padmini Carrasco MD Referring Provider Active Start: June 19, 2024 End: June 19, 2024 KALPANA Awad Attending Provider Active St art: June 19, 2024 End: June 19, 2024 Team Status: Inactive Member Role Status Dates Dr. Padmini Carrasco MD Primary Care Provider Acti ve Start: June 21, 2024 End: June 21, 2024 Dr. Pradip Mcclendon MD Attending Provider Active Start: June 21, 2024 End: June 21, 2024 Dr. Pradip Mcclendon MD Referring Provider Active Start: June 21, 2024 End: June 21, 2024 Team Status: Active Member Role Status Dates Dr. Padmini Carrasco MD Primary Care Provider Acti ve Start: June 21, 2024 Dr. Pradip Mcclendon MD Attending Provider Active Start: June 21, 2024 Dr. Pradip Mcclendon MD Referring Provider Active Start: June 21, 2024 Team Status: Active Member Role Status Dates Dr. Padmini Carrasco MD Primary Care Provider Acti ve Start: June 27, 2024 Dr. Pradip Mcclendon MD Attending Provider Active Start: June 27, 2024 Dr. Pradip Mcclendon MD Referring Provider Active Start: June 27, 2024 Team Status: Inactive Member Role Status Dates Dr. Padmini Carrasco MD Primary Care Provider Acti ve Start: June 27, 2024 End: June 28, 2024 Dr. Pradip Mcclendon MD Admit Provider Active Start: June 27, 2024 End: June 28, 2024 Dr. Pradip Mcclendon MD Attending Provider Active Start: June 27, 2024 End: June 28, 2024 Dr. Pradip Mcclendon MD Referring Provider Active Start: June 27, 2024 End: June 28, 2024 Team Status: Inactive Member Role Status Dates Dr. Padmini Carrasco MD Primary Care Provider Acti ve Start: July 09, 2024 End: July 09, 2024 Dr. Padmini Carrasco MD Attending Provider Active Start: July 09, 2024 End: July 09, 2024 Dr. Padmini Carrasco MD Referring Provider Active Start: July 09, 2024 End: July 09, 2024 Hot Cell Technician Relationship Specialty Start Date End Date Padmini Carrasco MD [address] [place] [id number] PCP - General Family Medicine 01/24/19 Pradip Mcclendon MD [address] [place] [address] Referring Urology 07/19/24 Hot Cell Technician Relationship Specialty Start Date End Date Padmini Carrasco MD [address] [facility] [place] [address] PCP - General Family Medicine 01/24/19 Pradip Mcclendon MD [address] [address] [place] [address] Referring Urology 07/19/24 Hot Cell Technician Relationship Specialty Start Date End Date Padmini Carrasco MD [address] [facility] [place] [address] PCP - General Family Medicine 01/24/19 Pradip Mcclendon MD [address] [address] [place] [address] Referring Urology 07/19/24 Hot Cell Technician Relationship Specialty Start Date End Date Padmini Carrasco MD [address] [facility] [place], [place] [address] PCP - General Family Medicine 01/24/19 Pradip Mcclendon MD [address] [address] [place] [address] Referring Urology 07/19/24 Hot Cell Technician Relationship Specialty Start Date End Date Padmini Carrasco MD [address] [facility] [place] [address] PCP - General Family Medicine 01/24/19 Pradip Mcclendon MD [address] [address] [place] [address] Referring Urology 07/19/24 Hot Cell Technician Relationship Specialty Start Date End Date Padmini Carrasco MD [address] [place], [place] [id number] PCP - General Family Medicine 01/24/19 Pradip Mcclendon MD [address] [address] [place] [address] Referring Urology 07/19/24 Hot Cell Technician Relationship Specialty Start Date End Date Padmini Carrasco MD [address] [place], [place] [address] PCP - General Family Medicine 01/24/19 Pradip Mcclendon MD [address] [place] [address] [place], [place] [address]151 Referring Urology 07/19/24 Rakel Post, ANGELA Specialty It Professional Hematology/Oncology 08/06/24 Hot Cell Technician Relationship Specialty Start Date End Date Padmini Carrasco MD [address] [place], [place] [address] PCP - General Family Medicine 01/24/19 Pradip Mcclendon MD [address] [place] [address] [place], [place] [address] Referring Urology 07/19/24 Rakel Post RN Specialty It Professional Hematology/Oncology 08/06/24 Hot Cell Technician Relationship Specialty Start Date End Date Padmini Carrasco MD [address] [place], [place] [address] PCP - General Family Medicine 01/24/19 Pradip Mcclendon MD [address] [place] [address] [place], [place] [address] Referring Urology 07/19/24 Rakel Post, RN Specialty It Professional Hematology/Oncology 08/06/24 Hot Cell Technician Relationship Specialty Start Date End Date Padmini Carrasco MD [address] [facility] [place] [address] PCP - General Family Medicine 01/24/19 Pradip Mcclendon MD [address] [address] [place] [address] Referring Urology 07/19/24 Rakel Post, ANGELA Specialty It Professional Hematology/Oncology 08/06/24 Hot Cell Technician Relationship Specialty Start Date End Date Padmini Carrasco MD [address] [facility] [place] [address] PCP - General Family Medicine 01/24/19 Pradip Mcclendon MD [address] [address] [place] [address] Referring Urology 07/19/24 Rakel Post, ANGELA Specialty It Professional Hematology/Oncology 08/06/24 Hot Cell Technician Relationship Specialty Start Date End Date Padmini Carrasco MD [address] [facility] [place] [address] PCP - General Family Medicine 01/24/19 Pradip Mcclendon MD [address] [address] [place] [address] Referring Urology 07/19/24 Rakel Post, RN Specialty It Professional Hematology/Oncology 08/06/24 Team Status: Active Member Role/Relationship Status Dates Dr. Padmini Carrasco MD Primary Care Provider Acti ve Team Status: Inactive Member Role/Relationship Status Dates Dr. Padmini Carrasco MD Primary Care Provider Acti ve Start: May 10, 2024 End: May 10, 2024 Dr. Padmini Carrasco MD Attending Provider Active Start: May 10, 2024 End: May 10, 2024 Dr. Padmini Carrasco MD Referring Provider Active Start: May 10, 2024 End: May 10, 2024 Team Status: Inactive Member Role/Relationship Status Dates Dr. Padmini Carrasco MD Primary Care Provider Acti ve Start: May 16, 2024 End: May 17, 2024 Dr. Jeffery Turpin DO Attending Provider Active Start: May 16, 2024 End: May 17, 2024 Dr. Jeffery Turpin DO Emergency Provider Active Start: May 16, 2024 End: May 17, 2024 Team Status: Inactive Member Role/Relationship Status Dates Dr. Padmini Carrasco MD Primary Care Provider Acti ve Start: May 28, 2024 End: May 28, 2024 Dr. Pradip Mcclendon MD Attending Provider Active Start: May 28, 2024 End: May 28, 2024 Dr. Pradip Mcclendon MD Referring Provider Active Start: May 28, 2024 End: May 28, 2024 Team Status: Inactive Member Role/Relationship Status Dates Dr. Padmini Carrasco MD Primary Care Provider Acti ve Start: June 19, 2024 End: June 19, 2024 Dr. Padmini Carrasco MD Referring Provider Active Start: June 19, 2024 End: June 19, 2024 KALPANA Awad Attending Provider Active St art: June 19, 2024 End: June 19, 2024 Team Status: Inactive Member Role/Relationship Status Dates Dr. Padmini Carrasco MD Primary Care Provider Acti ve Start: June 21, 2024 End: June 21, 2024 Dr. Pradip Mcclendon MD Attending Provider Active Start: June 21, 2024 End: June 21, 2024 Dr. Pradip Mcclendon MD Referring Provider Active Start: June 21, 2024 End: June 21, 2024 Team Status: Inactive Member Role/Relationship Status Dates Dr. Padimni Carrasco MD Primary Care Provider Acti ve Start: June 21, 2024 End: June 21, 2024 Dr. Pradip Mcclendon MD Attending Provider Active Start: June 21, 2024 End: June 21, 2024 Dr. Pradip Mcclendon MD Referring Provider Active Start: June 21, 2024 End: June 21, 2024 Team Status: Inactive Member Role/Relationship Status Dates Dr. Padmini Carrasco MD Primary Care Provider Acti ve Start: June 27, 2024 End: June 28, 2024 Dr. Pradip Mcclendon MD Admit Provider Active Start: June 27, 2024 End: June 28, 2024 Dr. Pradip Mcclendon MD Attending Provider Active Start: June 27, 2024 End: June 28, 2024 Dr. Pradip Mcclendon MD Referring Provider Active Start: June 27, 2024 End: June 28, 2024 Team Status: Inactive Member Role/Relationship Status Dates Dr. Padmini Carrasco MD Primary Care Provider Acti ve Start: July 09, 2024 End: July 09, 2024 Dr. Padmini Carrasco MD Attending Provider Active Start: July 09, 2024 End: July 09, 2024 Dr. Padmini Carrasco MD Referring Provider Active Start: July 09, 2024 End: July 09, 2024 Team Status: Inactive Member Role/Relationship Status Dates Dr. Padmini Carrasco MD Primary Care Provider Acti ve Start: August 30, 2024 End: August 30, 2024 Dr. Padmini Carrasco MD Referring Provider Active Start: August 30, 2024 End: August 30, 2024 Farheen Alexander INSTALLATION TECH, INSTALLATION TECH-C Attending Provider Active Start: August 30, 2024 End: August 30, 2024 Hot Cell Technician Relationship Specialty Start Date End Date Padmini Carrasco MD [address] [place] [address] PCP - General Family Medicine 01/24/19 Pradip Mcclendon MD [address] [place] [address] Referring Urology 07/19/24 Rakel Post RN Specialty It Professional Hematology/Oncology 08/06/24 Stacy Gauthier MD [address] [place] [address] Physician Urology 09/05/24 Hot Cell Technician Relationship Specialty Start Date End Date Padmini Carrasco MD [address] [facility] [place] [address] PCP - General Family Medicine 01/24/19 Pradip Mcclendon MD [address] [place] [address] Referring Urology 07/19/24 Rakel Post RN Specialty It Professional Hematology/Oncology 08/06/24 Stacy Gauthier MD [address] [facility] [place] [address] Physician Urology 09/05/24 Hot Cell Technician Relationship Specialty Start Date End Date Padmini Carrasco MD [address] [facility] [place] [address] PCP - General Family Medicine 01/24/19 Pradip Mcclendon MD [address] [place] [address] Referring Urology 07/19/24 Rakel Post, ANGELA Specialty It Professional Hematology/Oncology 08/06/24 Stacy Gauthier MD [address] [place] [address] Physician Urology 09/05/24 Luigi Banks MD [address] [place] [address] Physician Radiation Oncology 09/06/24 Hot Cell Technician Relationship Specialty Start Date End Date Padmini Carrasco MD [address] [place] [address] PCP - General Family Medicine 01/24/19 Pradip Mcclendon MD [address] [address] Referring Urology 07/19/24 Rakel Post RN Specialty It Professional Hematology/Oncology 08/06/24 Stacy Gauthier MD [address] [facility] [place] [address] Physician Urology 09/05/24 Luigi Banks MD [address] [place] [address] Physician Radiation Oncology 09/06/24 Hot Cell Technician Relationship Specialty Start Date End Date Padmini Carrasco MD [address] [place], [place] [address] PCP - General Family Medicine 01/24/19 Pradip Mcclendon MD [address] [place] [address] Referring Urology 07/19/24 Rakel Post RN Specialty It Professional Hematology/Oncology 08/06/24 Stacy Gauthier MD [address] [facility] [place] [address] Physician Urology 09/05/24 Luigi Banks MD [address] [place] [place] [address] Physician Radiation Oncology 09/06/24 Hot Cell Technician Relationship Specialty Start Date End Date Padmini Carrasco MD [address] [place] [address] PCP - General Family Medicine 01/24/19 Pradip Mcclendon MD [address] [place] [address] Referring Urology 07/19/24 Rakel Post, ANGELA Specialty It Professional Hematology/Oncology 08/06/24 Stacy Gauthier MD [address] [facility] [place] [address] Physician Urology 09/05/24 Luigi Banks MD [address] [place] [place] [address] Physician Radiation Oncology 09/06/24 Hot Cell Technician Relationship Specialty Start Date End Date Padmini Carrasco MD [address] [place] [address] PCP - General Family Medicine 01/24/19 Pradip Mcclendon MD [address] [place] [address] Referring Urology 07/19/24 Rakel Post RN Specialty It Professional Hematology/Oncology 08/06/24 Stacy Gauthier MD [address] [facility] [place] [address] Physician Urology 09/05/24 Luigi Banks MD [address] [facility] [place] [address] Physician Radiation Oncology 09/06/24 Vivienne Gu RN Specialty It Professional Oncology 09/12/24 Anthony Rivers DO [address] [place] [address] Hematology/Oncology 09/12/24 Mayra Carmichael LISW [address] [place] [address] Draw Frame Tender Hematology/Oncology 09/12/24 Hot Cell Technician Relationship Specialty Start Date End Date Padmini Carrasco MD [address] [place] [address] PCP - General Family Medicine 01/24/19 Pradip Mcclendon MD [address] [place] [address] [place] [address] Referring Urology 07/19/24 Rakel Post RN Specialty It Professional Hematology/Oncology 08/06/24 Stacy Gauthier MD [address] [place] [address] Physician Urology 09/05/24 Luigi Banks MD [address] [place] [address] Physician Radiation Oncology 09/06/24 Vivienne Gu RN Specialty It Professional Oncology 09/12/24 Anthony Rivers DO [address] [place] [address] Hematology/Oncology 09/12/24 Mayra Carmichael LISW [address] [place] [address] Draw Frame Tender Hematology/Oncology 09/12/24 Hot Cell Technician Relationship Specialty Start Date End Date Padmini Carrasco MD [address] [place] [address] PCP - General Family Medicine 01/24/19 Pradip Mcclendon MD [address] [facility] [address] [place] [address] Referring Urology 07/19/24 Rakel Post, ANGELA Specialty It Professional Hematology/Oncology 08/06/24 Stacy Gauthier MD [address] [place] [address] Physician Urology 09/05/24 Luigi Banks MD [address] [place], [place] [id number] Physician Radiation Oncology 09/06/24 Vivienne Gu RN Specialty It Professional Oncology 09/12/24 Anthony Rivers DO [address] [place] [address] Hematology/Oncology 09/12/24 Mayra Carmichael LISW [address] [place] [address] Draw Frame Tender Hematology/Oncology 09/12/24 Goals (unrecognized section and content) Goals may be documented in a n alternate sectionGoals may be documented in an alternate sectionGoals may be documented in an alternate sectionGoals may be documented in an alternate sectionGoals may be documented in an alternate sectionGoals may be documented in an alternate sectionGoals may be documented in an alternate sectionGoals may be documented in an alternate sectionGoals may be documented in an alternate sectionGoals may be documented in an alternate sectionGoals may be documented in an alternate sectionGoals may be documented in an alternate sectionGoals may be documented in an alternate sectionGoals may be documented in an alternate sectionGoals may be documented in an alternate section (unrecognized sect ion and content) No Status Records FoundNo Status Records FoundNo Status Records Found INFORMATION SOURCE (unrecogn ized section and content) DATE CREATED AUTHOR 09/12/2024 [facility] DATE CREATED AUTHOR AUTHOR'S ORGANIZ ATION 09/14/2024 [facility] DATE CREATED AUTHOR AUTHOR'S VINNIE ATION 09/19/2024 [facility] FOR RECORDS PERTAINING TO PATIENTS WHO ARE OR HAVE BEEN ENROLLED IN A CHEMICAL DEPENDENCY/SUBSTANCEABUSE PROGRAM, SOME INFORMATION MAY BE OMITTED. This clinical summary was aggregated from multiple sources. Caution should be exercised in using it in the provision of clinical care. This summary normalizes information from multiple sources, and as a consequence, information in this document may materially change the coding, format and clinical context of patient data. In addition, data may be omitted in some cases. CLINICAL DECISIONS SHOULD BE BASED ON THE PRIMARY CLINICAL RECORDS. [facility] [employer] [facility]. provides no warranty or guarantee of the accuracy or completeness of information in this document.
[2024-09-21 08:24] VITALS: BP 154/95; PULSE 53; RESP 14; TEMP 35.9; O2SAT 96; BMI 25.8
== END | disposition home or self-care (01) ==
LOC: RAD 07:44
PROVIDERS: PCP Family Medicine; Referring Provider Internal Medicine Hematology & Oncology; Visit Provider Internal Medicine Hematology & Oncology
DX: C67.9 Malignant neoplasm of bladder, unspecified (principal)
CPT/HCPCS: 36569

== ENCOUNTER 2024-11-07 15:31 | Inpatient (IN) | payer MEDICARE, SELFPAY ==
[2024-11-07] VITALS (25 sets, daily range): BP systolic 77–155; BP diastolic 43–126; PULSE 72–110; RESP 14–30; TEMP 2.2–36.7; O2SAT 92–100; BMI 22.8; BMI 23.2
--- NOTE | 2024-11-07 15:42 | CT_ITS ---
PROCEDURE: CTA ABD/PELVIS W/WO CONTRAST 11/07/2024 REASON FOR EXAM: GI BLEED; known bladder cancer with chemo radiation treatment. TECHNIQUE: Procedure Code: [id number] Modality: CT Procedure: CTA ABD/PELVIS W/WO CONTRAST Multiplanar Sagittal and Coronal images were obtained. 3D/MIP post processing was performed. CONTRAST: Isovue 370 VOLUME: 93 mL One or more dose reduction techniques were used (e.g., Automated exposure control, adjustment of the mA and/or kV according to patient size, use of iterative reconstruction technique). RADIATION DOSE SUMMARY: DLP: 643.16 mGycm COMPARISON: Abdominal CTs 06/21/2024, 05/16/2024. FINDINGS: LUNG BASES: Clear. 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 HEPATOBILIARY: No significant abnormality. Multiple small calcified granulomas scattered throughout the liver and spleen. No biliary ductal dilatation. GENITOURINARY: Marked circumferential thickening of the urinary bladder, with pericystic inflammatory fat stranding. Similar mild left hydroureteronephrosis. Left urothelial enhancement compatible with ureteritis/pyelitis. Symmetric nephrograms without evidence for pyelonephritis. Nonenlarged prostate. GI TRACT: No evidence of obstruction. Normal appendix. Mild wall thickening/fat stranding along the proximal duodenum, may represent mild duodenitis. Mild wall thickening of the distal rectosigmoid colon, and fluid throughout the colon suggesting colitis with nonspecific diarrheal illness. No intraluminal hyperdense material or active arterial contrast extravasation on the early arterial or delayed phase images to indicate active gastrointestinal hemorrhage. PERITONEUM/RETROPERITONEUM: No ascites or free air. No suspicious lymph node enlargement. Multiple shotty subcentimeter periaortic lymph nodes are nonspecific. MUSCULOSKELETAL: No acute abnormality. Multilevel degenerative changes of the spine. CT/CTA Abd/Pelvis W/WO Contrast IMPRESSION: 1. No CT evidence for active gastrointestinal hemorrhage. 2. Mild wall thickening and inflammatory changes involving the proximal duodenu m, and distal rectosigmoid colon suggestive of enterocolitis. Nonspecific diarrheal illness with fluid in the colon. 3. Marked wall thickening of the bladder with surrounding inflammatory fat stra nding, may be infectious/inflammatory or related to known neoplasm. Possibly treatment related change. 4. Similar mild left hydroureteronephrosis. Evidence of left ureteritis/pyelit is. 5. Stable appearance of irregular diffuse fusiform aneurysmal dilatation of the infrarenal abdominal aorta and bilateral common iliac arteries, with eccentric noncalcified plaque/mural thrombus. Reading Location: [id number]
[2024-11-07] MEDS: 0.9% Normal Saline (1000mL) 1,000 ML 999 ML IV (15:54)
--- NOTE | 2024-11-07 15:57 | EX.ED.DYSGE1 ---
HPI History of Present Illness Chief Complaint: GI Bleed Narrative Narrative: Chief complaint and HPI: 74-year-old gentleman with past medical history of bladder cancer status post transurethral section of the large bladder mass on 06/27/[address] Winston with 5 weeks of radiation and 2 cycles of chemotherapy presents for evaluation of bright red blood per rectum. Patient states he finished his last chemotherapy on 10/19/2024 and his last radiation on 10/22/2024. States today he had bright red blood per rectum that has become darker after multiple bowel movements. He denies any fever, chills, shortness of breath, chest pain, abdominal pain, nausea, vomiting, dysuria. Review of systems: See HPI Medications: As listed on the chart Allergies: As listed on the chart PFSH: Per chart Vital signs: As listed on the chart. Reviewed. Physical exam: Gen: A&O x3, NAD Head: Normocephalic, atraumatic Eyes: No sclera icterus, conjunctiva clear ENT: Moist mucous membranes Neck: Trachea midline CV: RRR, no murmurs, no peripheral edema Resp: Lungs CTA BL, no w/r/c GI: Abd soft, non-distended, non-tender, no r/r/g Rectal: Normal external examination. No evidence of hemorrhoids or fissures. Normal tone and sensation. No masses, fluctuance, or tenderness. No pain out of proportion. Dark brown stool on gloved finger Musc: Full ROM, no deformity Skin: Warm, dry, pale Neuro: Alert, oriented, grossly intact, sensation intact Psych: Cooperative, appropriate mood and affect [facility] Medical History Bladder cancer Wears dentures Wears glasses Bruising Easy bruising High cholesterol Smoker Shortness of breath on exertion History of echocardiogram Cardiology follow-up encounter Stage 3b chronic kidney disease (CKD) Thrombocytopenia Chronic kidney insufficiency Pleural effusion Secondary pulmonary arterial hypertension Atherosclerotic heart disease of [place] coronary artery without angina pectoris Intention tremor Carotid stenosis, bilateral Hyperlipidemia Nonrheumatic aortic (valve) stenosis Essential hypertension Tobacco dependence Bilateral inguinal hernia Left carotid bruit Abdominal aortic aneurysm (AAA) Anemia Subcutaneous mass of back PUD (peptic ulcer disease) Cough Arthritis Home Medications ?Medication ?Instructions ?Recorded ?Last Taken ?Type aspirin 81 mg tablet,delayed 81 mg PO DAILY heart health 03/02/22 01/12/24 History release rosuvastatin 5 mg tablet (Crestor) 5 mg PO DAILY cholesterol 03/02/22 03/02/22 History amlodipine 5 mg tablet 5 mg PO DAILY #30 tabs 02/28/23 Unknown Rx cholecalciferol (vitamin D3) 25 25 mcg PO DAILY 10/27/23 Unknown History mcg (1,000 unit) capsule metoprolol tartrate 25 mg tablet 12.5 mg (1/2 x 25 mg) PO BID #90 03/22/24 06/27/24 05:30 Rx tabs acetaminophen 500 mg capsule 1,000 mg PO Q6H PRN pain 06/13/24 Unknown History fluticasone fur. 200 mcg-umeclid 1 inh inhalation DAILY PRN SOB 06/13/24 Unknown History 62.5 mcg-vilant 25 mcg inhalat.powder (Trelegy Ellipta) Allergy/AdvReac Type Severity Reaction Status Date / Time No Known Allergies Allergy Verified 11/07/24 15:31 Family History Sister Asthma Mother Arthritis Diabetes Brother Cancer Unsure what kind- just a lump on his neck Surgical History Neoplasm of bladder Hx of inguinal hernia repair S/P inguinal hernia repair History of cardiac catheterization S/P AAA repair 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) History of left heart catheterization (11/27/18) History of aortic valve replacement (02/12/19) Social History (Updated 11/07/24 @ 20:[address] Suzanne Medley MD) household members: none Smoking Status: Current every day smoker tobacco type: cigarettes quit status: has quit before alcohol intake: never substance use type: does not use caffeine: Yes Type: coffee Number of servings: 3 what type of physical activity do you participate in: other frequency: 3-4 times per week seatbelt use: always EXAM Physical Exam Const Vital Signs: 11/07/24 15:32 11/07/24 15:57 11/07/24 16:35 Temperature 96.1 F L Temperature Source Temporal Pulse Rate 79 79 Respiratory Rate 18 16 Respiratory Effort Respiratory Depth Respiratory Pattern Blood Pressure 83/63 L 102/72 132/75 H Blood Pressure Mean 69 82 94 Blood Pressure Source Blood Pressure Position Blood Pressure Location Pulse Ox 97 92 Oxygen Delivery Method Room Air Room Air Oxygen Flow Rate (L/min) 11/07/24 17:00 11/07/24 18:00 11/07/24 18:35 Temperature Temperature Source Pulse Rate 76 110 H 79 Respiratory Rate 30 H 18 Respiratory Effort Respiratory Depth Respiratory Pattern Blood Pressure 144/75 H 142/126 H Blood Pressure Mean 98 131 Blood Pressure Source Blood Pressure Position Blood Pressure Location Pulse Ox 99 Oxygen Delivery Method Nasal Cannula Oxygen Flow Rate (L/min) 11/07/24 18:45 11/07/24 18:48 11/07/24 18:54 Temperature 96.6 F L Temperature Source Temporal Pulse Rate 81 77 Respiratory Rate 16 Respiratory Effort Respiratory Depth Respiratory Pattern Blood Pressure 128/114 H 77/60 L 78/55 L Blood Pressure Mean 118 65 62 Blood Pressure Source Blood Pressure Position Blood Pressure Location Pulse Ox 92 Oxygen Delivery Method Oxygen Flow Rate (L/min) 11/07/24 19:00 11/07/24 19:00 11/07/24 19:10 Temperature 97.3 F L 97.3 F L 97.3 F L Temperature Source Temporal Temporal Temporal Pulse Rate 76 72 75 Respiratory Rate 22 H 17 20 H Respiratory Effort Respiratory Depth Respiratory Pattern Blood Pressure 95/63 112/73 113/71 Blood Pressure Mean 73 86 85 Blood Pressure Source Monitor Blood Pressure Position Blood Pressure Location Pulse Ox 98 97 Oxygen Delivery Method Nasal Cannula Nasal Cannula Oxygen Flow Rate (L/min) 2 11/07/24 19:19 11/07/24 19:37 11/07/24 19:45 Temperature 97.6 F L 97.6 F L Temperature Source Temporal Pulse Rate 74 78 74 Respiratory Rate 16 16 14 Respiratory Effort Respiratory Depth Respiratory Pattern Blood Pressure 125/43 H 124/43 H 130/91 H Blood Pressure Mean 70 70 104 Blood Pressure Source Monitor Blood Pressure Position Semi-Fowlers Blood Pressure Location Right Arm Pulse Ox 98 98 100 Oxygen Delivery Method Nasal Cannula Oxygen Flow Rate (L/min) 2 11/07/24 20:10 11/07/24 20:28 11/07/24 21:51 Temperature 97.6 F L 98.0 F Temperature Source Temporal Pulse Rate 78 84 72 Respiratory Rate 16 18 20 H Respiratory Effort Respiratory Depth Respiratory Pattern Normal Blood Pressure 124/43 H 122/79 H 129/83 H Blood Pressure Mean 93 98 Blood Pressure Source Monitor Monitor Blood Pressure Position Semi-Fowlers Semi-Fowlers Blood Pressure Location Right Arm Right Arm Pulse Ox 98 100 100 Oxygen Delivery Method Nasal Cannula Nasal Cannula Simple Mask Oxygen Flow Rate (L/min) 2 2 3 11/07/24 21:56 11/07/24 22:01 11/07/24 22:02 Temperature 96.4 F L 36 F L Temperature Source Temporal Pulse Rate 75 75 72 Respiratory Rate 14 19 H 15 Respiratory Effort Respiratory Depth Respiratory Pattern Blood Pressure 139/89 H 134/120 H 129/80 H Blood Pressure Mean 105 124 Blood Pressure Source Monitor Monitor Blood Pressure Position Semi-Fowlers Semi-Fowlers Blood Pressure Location Right Arm Right Arm Pulse Ox 100 100 100 Oxygen Delivery Method Nasal Cannula Room Air Venturi Mask Oxygen Flow Rate (L/min) 2 8 11/07/24 22:05 11/07/24 22:08 11/07/24 22:10 Temperature Temperature Source Pulse Rate 75 77 Respiratory Rate 19 H Respiratory Effort Normal Non-Labored Respiratory Depth Normal Respiratory Pattern Normal Blood Pressure 145/119 H Blood Pressure Mean 127 Blood Pressure Source Monitor Blood Pressure Position Semi-Fowlers Blood Pressure Location Right Arm Pulse Ox 97 Oxygen Delivery Method Room Air Room Air Oxygen Flow Rate (L/min) 11/07/24 22:15 11/07/24 22:30 11/07/24 22:45 Temperature Temperature Source Pulse Rate 77 78 82 Respiratory Rate 21 H 18 18 Respiratory Effort Respiratory Depth Respiratory Pattern Blood Pressure 155/112 H 119/65 138/111 H Blood Pressure Mean 126 83 120 Blood Pressure Source Monitor Monitor Monitor Blood Pressure Position Semi-Fowlers Semi-Fowlers Semi-Fowlers Blood Pressure Location Right Arm Right Arm Right Arm Pulse Ox 97 95 94 Oxygen Delivery Method Room Air Room Air Room Air Oxygen Flow Rate (L/min) MDM MDM MDM Narrative Medical decision making narrative: 74-year-old gentleman with past medical history of bladder cancer status post transurethral section of the large bladder mass on 06/27/[address] Winston with 5 weeks of radiation and 2 cycles of chemotherapy presents for evaluation of bright red blood per rectum. Patient states he finished his last chemotherapy on 10/19/2024 and his last radiation on 10/22/2024. States today he had bright red blood per rectum that has become darker after multiple bowel movements. History is taken by patient as well as post operative report by Dr. Winston. On chart review, patient also has a history of a AAA repair. Differential diagnosis includes but is not limited to lower GI bleed from radiation proctocolitis, aortic enteric fistula, colitis, diverticulosis, anemia. On presentation, patient is pale and hypotensive. NS bolus ordered. Blood pressure quickly improved. GI bleed workup ordered including CTA abdomen and pelvis. CBC without leukocytosis. Patient has anemia with hemoglobin of 9.1. Platelets normal. CMP shows mild hypokalemia of 5.1 with CKD. BUN 47 creatinine 2.09. Appears patient's baseline. No transaminitis. Lipase unremarkable. Lactic acid 2.2. Patient receiving fluids. While waiting for CTA abdomen and pelvis results. Patient has had multiple bloody bowel movements. He is becoming tachycardic, tachypneic, hypotensive. 1 unit trauma blood ordered with type and screen, coagulation panel, repeat H&H, troponin, chest x-ray, EKG. EKG and chest x-ray reviewed. Troponin unremarkable. Coagulation panel unremarkable. Repeat hemoglobin 7.8. Patient remains hypotensive. Another unit trauma blood ordered. CTA abdomen pelvis still pending at this time. I have called multiple times to radiology for a read. I do not see an obvious blush on imaging. Given that patient is decompensating, Dr. Floyd was consulted for GI bleed and likely need of endoscopy. Patient was discussed with Dr. Floyd. He would like CTA results prior to endoscopy to locate bleed. Blood pressure improving. UA positive for UTI. Urine culture sent. Rocephin ordered. While waiting for CTA results, it was reported to me by nursing staff that patient was taken out of the emergency department by surgery staff for endoscopy. CTA resulted shortly later with no evidence of active gastrointestinal hemorrhage. Mild wall thickening and inflammatory changes involving the proximal duodenum, and distal rectosigmoid colon suggestive of enterocolitis. Marked wall thickening of the bladder with surrounding inflammatory fat stranding. Left hydroureteronephrosis. Evidence of left uritis/pyelitis. Stable appearance of irregular diffuse fusiform aneurysm dilation of the infrarenal renal abdominal aorta and bilateral common iliac arteries, with eccentric noncalcified plaque/mild thrombus. After receiving the CTA results, I did consult Dr. Floyd. He was updated. He spoke with the hospitalist service who would prefer patient be transferred after endoscopy. Hospitalist was contacted and patient was discussed. Prefers patient to be transferred however given that they are now out of the emergency department and unable to initiate this transfer. They will admit to the ICU and arrange transfer. EKG: Interpreted by me/EM physician: EKG shows normal sinus rhythm without any acute ischemic changes heart rate 87 Diagnostic: Interpreted by me/EM physician: Chest x-ray without pneumonia, effusion, cardiomegaly, pneumothorax 45 minutes of critical care time utilized in managing the patient. This is due to high probability of and deterioration of the patient based on the patient's condition and excludes any separately billable procedures. Impression: 1. GI bleed 2. Acute on chronic anemia requiring blood transfusion secondary to #1 3. Hypotension secondary to #1 4. UTI 5. Lactic acidosis secondary to #1 6. Mild hyperkalemia Lab Data Labs: Laboratory Results - last 24 hr 11/07/24 11/07/24 11/07/24 15:55 17:26 17:57 WBC 10.8 RBC 3.01 L Hgb 9.1 L 7.8 L Hct 29.2 L MCV 97.0 H MCH 30.2 MCHC 31.2 L RDW Std Deviation 55.2 H RDW Coeff of Manjit 15.6 H Plt Count 229 MPV 8.9 Immature Gran % (Auto) 0.700 Neut % (Auto) 76.0 H Lymph % (Auto) 11.8 L [place] % (Auto) 9.8 Eos % (Auto) 1.1 Baso % (Auto) 0.6 Absolute Neuts (auto) 8.2 H Absolute Lymphs (auto) 1.27 Nucleated RBC % 0 PT INR APTT Sodium 141 Potassium 5.3 H Chloride 106 Carbon Dioxide 22.6 Anion Gap 12 BUN 47 H Creatinine 2.09 H Est GFR (MDRD) Non-Af 33 L BUN/Creatinine Ratio 22.4 H Glucose 139 H Lactic Acid 2.2 H* Calcium 8.3 Phosphorus 4.5 Magnesium 2.1 Total Bilirubin 0.15 AST 14 ALT 9 Alkaline Phosphatase 68 Troponin T High Sens 16 Total Protein 5.7 L Albumin 3.3 L Globulin 2.4 Albumin/Globulin Ratio 1.4 Lipase 43 Urine Color Straw Urine Clarity Cloudy Urine pH 6.0 Ur Specific Chrisman 1.015 Urine Protein 100 H Urine Glucose (UA) Normal Urine Ketones Negative Urine Occult Blood 50 H Urine Nitrite Negative Urine Bilirubin Negative Urine Urobilinogen Normal Ur Leukocyte Esterase 500 H Urine RBC 5-10 SEEN Urine WBC >100 SEEN Ur Squamous Epith Cells 0-5 SEEN Ur Transition Epith Cell 0-5 SEEN Urine Bacteria 2+ Urine Mucus 0 SEEN Blood Type Antibody Screen Crossmatch 11/07/24 11/07/24 11/07/24 18:30 18:40 18:40 WBC RBC Hgb Hct MCV MCH MCHC RDW Std Deviation RDW Coeff of Manjit Plt Count MPV Immature Gran % (Auto) Neut % (Auto) Lymph % (Auto) [place] % (Auto) Eos % (Auto) Baso % (Auto) Absolute Neuts (auto) Absolute Lymphs (auto) Nucleated RBC % PT 14.5 INR 1.1 APTT 26.5 Sodium Potassium Chloride Carbon Dioxide Anion Gap BUN Creatinine Est GFR (MDRD) Non-Af BUN/Creatinine Ratio Glucose Lactic Acid Calcium Phosphorus Magnesium Total Bilirubin AST ALT Alkaline Phosphatase Troponin T High Sens Total Protein Albumin Globulin Albumin/Globulin Ratio Lipase Urine Color Urine Clarity Urine pH Ur Specific [place] Urine Protein Urine Glucose (UA) Urine Ketones Urine Occult Blood Urine Nitrite Urine Bilirubin Urine Urobilinogen Ur Leukocyte Esterase Urine RBC Urine WBC Ur Squamous Epith Cells Ur Transition Epith Cell Urine Bacteria Urine Mucus Blood Type A POSITIVE Antibody Screen NEGATIVE Crossmatch See Detail See Detail 11/07/24 11/07/24 11/07/24 18:40 20:15 22:16 WBC 8.5 RBC 3.51 L Hgb 10.6 L 10.4 L Hct 33.7 L 32.8 L MCV 96.0 H MCH 30.2 MCHC 31.5 L RDW Std Deviation 53.2 H RDW Coeff of Manjit 15.3 H Plt Count 156 MPV 8.9 Immature Gran % (Auto) 0.900 Neut % (Auto) 80.9 H Lymph % (Auto) 9.2 L [place] % (Auto) 8.1 Eos % (Auto) 0.4 Baso % (Auto) 0.5 Absolute Neuts (auto) 6.9 Absolute Lymphs (auto) 0.78 L Nucleated RBC % 0 PT INR APTT Sodium Potassium Chloride Carbon Dioxide Anion Gap BUN Creatinine Est GFR (MDRD) Non-Af BUN/Creatinine Ratio Glucose Lactic Acid Calcium Phosphorus Magnesium Total Bilirubin AST ALT Alkaline Phosphatase Troponin T High Sens Total Protein Albumin Globulin Albumin/Globulin Ratio Lipase Urine Color Urine Clarity Urine pH Ur Specific [place]isman Urine Protein Urine Glucose (UA) Urine Ketones Urine Occult Blood Urine Nitrite Urine Bilirubin Urine Urobilinogen Ur Leukocyte Esterase Urine RBC Urine WBC Ur Squamous Epith Cells Ur Transition Epith Cell Urine Bacteria Urine Mucus Blood Type Antibody Screen Crossmatch See Detail Radiography Diagnostic Testing: Clinical Impression(s) from Imaging Studies Abdomen/Pelvis CTA 11/07/24 15:42 IMPRESSION: 1. No CT evidence for active gastrointestinal hemorrhage. 2. Mild wall thickening and inflammatory changes involving the proximal duodenum, and distal rectosigmoid colon suggestive of enterocolitis. Nonspecific diarrheal illness with fluid in the colon. 3. Marked wall thickening of the bladder with surrounding inflammatory fat stranding, may be infectious/inflammatory or related to known neoplasm. Possibly treatment related change. 4. Similar mild left hydroureteronephrosis. Evidence of left ureteritis/pyelitis. 5. Stable appearance of irregular diffuse fusiform aneurysmal dilatation of the infrarenal abdominal aorta and bilateral common iliac arteries, with eccentric noncalcified plaque/mural thrombus. Reading Location: [facility] Chest X-Ray 11/07/24 18:53 IMPRESSION: No focal consolidation. Extensive pulmonary emphysema. Reading Location: [facility] Discharge Plan Disposition Disposition: Acute Care Hospital [facility] Discharge Date/Time: 11/07/24 20:14
[2024-11-07 16:22] LABS: Hematocrit 29.2 % (40-54); Hemoglobin 9.1 g/dL (13.0-16.5); Immature Granulocytes Count 0.070 X10^3/uL (0.0-0.0); Mean Corp Hgb Conc 31.2 g/dL (32-36); Mean Corpuscular Volume 97.0 fL (80-94); Mean Platelet Vol. 8.9 fl (6.2-12.0); NRBC Flagged by Analyzer 0 % (0-5); Platelet Count 229 K/mm3 (150-450); RBC Distribution Width CV 15.6 % (11.6-14.6); RBC Distribution Width SD 55.2 fl (35.1-43.9); Red Blood Count 3.01 M/mm3 (4.6-6.2); White Blood Count 10.8 K/mm3 (4.4-11.0)
[2024-11-07 16:36] LABS: AST(SGOT) 14 U/L (<=37); Alanine Aminotransfer ALT/SGPT 9 U/L (<=46); Albumin, Serum 3.3 g/dL (3.4-4.8); Alkaline Phosphatase 68 U/L (40-129); Anion Gap 12 (5-15); BUN 47 mg/dL (4-19); BUN/Creat Ratio 22.4 RATIO (10-20); Calcium,Total 8.3 mg/dL (7.6-11.0); Carbon Dioxide 22.6 mmol/L (21.0-32.0); Chloride 106 mmol/L (98-108); Globulin 2.4 g/dL (2.2-4.2); Glucose 139 mg/dL (70-99); Lipase 43 U/L (13-75); Potassium 5.3 mmol/L (3.3-5.1)
[2024-11-07 17:53] LABS: Color, Urine Straw (Yellow); Glucose, Dipstick Normal (Normal); Ketone-Dipstick Negative (Negative); Leukocyte Esterase-Dipstick 500 /ul (Negative); Mucous, Urine 0 SEEN /hpf (<or=2+); Nitrite-Dipstick Negative (Negative); Occult Blood-Urine 50 /ul (Negative); Protein-Dipstick 100 mg/dl (Negative); Specific Gravity, Urine 1.015 (1.002-1.030); Urine Bilirubin Dipstick Negative (Negative)
--- NOTE | 2024-11-07 17:55 | EKG12_ITS ---
Test Reason : ARRYTH Blood Pressure : */* mmHG Vent. Rate : 87 BPM Atrial Rate : 87 BPM P-R Int : 134 ms QRS Dur : 88 ms QT Int : 354 ms P-R-T Axes : 87 85 72 degrees QTcB Int : 425 ms Normal sinus rhythm Normal ECG Confirmed by Evgeny Jacobo ([id number]), market editor TATI PEREZ ([id number]) on 11/09/2024 7:20:33 AM Referred By: Suzanne Medley Confirmed By: Evgeny Jacobo
[2024-11-07 18:15] LABS: Hemoglobin 7.8 g/dL (13.0-16.5)
[2024-11-07 18:16] LABS: Transitional Epithelial - Ur 0-5 SEEN /hpf (0-5)
[2024-11-07 18:17] LABS: Red Blood Cells-Urine 5-10 SEEN /hpf (0-5)
[2024-11-07 18:18] LABS: Squamous Epithelial Cells - UA 0-5 SEEN /hpf (0-5)
--- NOTE | 2024-11-07 18:33 | ED.RN ---
dr. carrillo notified of an almost constant blood bowel movements
[2024-11-07 18:53] LABS: Prothrombin Time (Protime)PT. 14.5 SECONDS (11.7-14.9)
--- NOTE | 2024-11-07 18:53 | RAD_ITS ---
PROCEDURE: CHEST 1 VIEW (PORTABLE) 11/07/2024 REASON FOR EXAM: SOB TECHNIQUE: Frontal view of the chest. COMPARISON: 03/18/2022 FINDINGS: Median sternotomy wire. Left-sided PICC line. Cardiac valve repair. No focal consolidation. Extensive pulmonary emphysema. No pleural effusion or pneumothorax. Cardiac silhouette is within normal limits. Calcified aortic arch. No acute fractures. RAD/Chest 1 View (Portable) IMPRESSION: No focal consolidation. Extensive pulmonary emphysema. Reading Location: [id number]
[2024-11-07 18:54] LABS: Partial Thromboplast Time 26.5 Seconds (24.1-36.2)
[2024-11-07 19:06] LABS: Troponin T High Sensitivity 16 ng/L (<=22)
--- NOTE | 2024-11-07 19:36 | ED.RN ---
pt transferred to PACU at 1925
--- NOTE | 2024-11-07 20:03 | PRE.ANES_ITS ---
ASA Classification* ASA Classification ASA Classification: 4 and E Assessment & Plan Anesthesia* Anesthesia Assessment Anesthesia Assessment: Discussed sedation and/or anesthesia options, risks, benefits, and alternatives with patient/parents/legal guardian/POA. Questions invited. The patient/parents/legal guardian/POA seems to understand and agrees to proceed with anesthesia plan. Reviewed the physical assessment, medical history, allergy history and patient home medications list prior to surgery/procedure/anesthetic and documented any changes. Performed airway and anesthesia risk assessments. Anesthesia Type Anesthesia Type: MAC History Source History Obtained from:: Patient and Chart Anesthesia Focused Assessment* Temperature: 97.6 F Pulse Rate: 78 Blood Pressure: 124/43 Respiratory Rate: 16 Pulse Ox: 98 Oxygen Delivery Method: Nasal Cannula Oxygen Flow Rate (L/min): 2 Airway Assessment Mouth opens: >3 cm Mallampati Score: III Teeth Condition: Dentures and Upper Labs Anesthesia Preop lab: CBC WBC, (4.4-11.0) 10.8 K/mm3 Today, 15:55 RBC, (4.6-6.2) 3.01 M/mm3 L Today, 15:55 Hgb, (13.0-16.5) 7.8 g/dL L Today, 17:57 Hct, (40-54) 29.2 % L Today, 15:55 Plt Count, (150-450) 229 K/mm3 Today, 15:55 CHEMISTRY Potassium, (3.3-5.1) 5.3 mmol/L H Today, 15:55 Sodium, (133-145) 141 mmol/L Today, 15:55 Magnesium, (1.6-2.6) 1.9 mg/dL 03/03/22, 05:36 Phosphorus, (2.5-4.9) 4.9 mg/dL 03/03/22, 05:36 BUN, (4-19) 47 mg/dL H Today, 15:55 Creatinine, (0.70-1.20) 2.09 mg/dL H Today, 15:55 Glucose, (70-99) 139 mg/dL H Today, 15:55 TSH, (0.300-4.200) 3.680 uIU/mL 05/10/24, 15:16 COAG PT, (11.7-14.9) 14.5 SECONDS Today, 18:30 Pre-Assessment Diagnosis/Proposed Procedure Planned Operative Procedure(s): Colonoscopy Anesthesia History Anesthesia History - steward/stewardess dining room: Anesthesia History - steward/stewardess dining room Hx Hospitalization No 06/15/24 08:41 Any Problems With Anesthesia No 06/15/24 08:41 Cholinesterase deficiency No 06/15/24 08:41 You/Your Family Experience No 06/15/24 08:41 fever (hyperthermia) with Relationship Recent Exposure to Contagious No 06/27/24 06:57 Disease Does patient have nerve No 06/15/24 08:41 stimulator Patient instructed to have device shut off --Does patient have Pacemaker or ICD? When Was Last Pacemaker Check QUESTION #4 FULL TEXT: You/Your Family Experience fever (hyperthermia) with Anesthesia Last Oral Intake Last Oral intake: Last Oral Intake NPO since Meds taken in AM with sips of water? Meds patient instructed to take am of surgery PONV PONV - steward/stewardess dining room: PONV - steward/stewardess dining room Female HX of Motion Sickness HX of N/V After Surgery Non-Smoker Duration of Surgery greater than 60 minutes Number of Risk Factors PONV Score Height & Weight Height & Weight: Anesthesia: Height & Weight Height 5 ft 6 in 11/07/24 15:32 Weight: 64.4 kg 11/07/24 18:05 Body Mass Index (BMI) 22.8 11/07/24 18:05 Respiratory Assessment Respiratory Assessment - steward/stewardess dining room: Respiratory Tract Infection Hx - steward/stewardess dining room Hx Respiratory Tract Infection No 06/15/24 08:41 STOP Sleep Apnea STOP Sleep Apnea - steward/stewardess dining room: STOP Sleep Apnea - steward/stewardess dining room Hx Hypertension Yes: CONTROLLED ON MED 06/15/24 08:41 Hx Sleep Apnea No 06/27/24 15:00 CPAP BIPAP Do you snore loudly (louder than talking or can be heard Do you often feel tired/ fatigued/ sleepy during daytime? Has anyone observed you stop breathing during sleep? STOP Results QUESTION #5 FULL TEXT : Do you snore loudly (louder than talking or can be heard through closed doors)? 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 Specify any problems Hx of Preganancy in last 3 Months Nurse Filling Out Transfusion & Questions: Date: Time: Patient unable to answer at this time (ie. confused, unrespo /Reproduction History /Reproductive History - steward/stewardess dining room: /Reproductive Hx- steward/stewardess dining room Hx Now Gestational Age (in weeks): EDC: Hx Hx Para Hx Section SAB PFSH Medical History Bladder cancer Wears dentures Wears glasses Bruising Easy bruising High cholesterol Smoker Shortness of breath on exertion History of echocardiogram Cardiology follow-up encounter Stage 3b chronic kidney disease (CKD) Thrombocytopenia Chronic kidney insufficiency Pleural effusion Secondary pulmonary arterial hypertension Atherosclerotic heart disease of [place] coronary artery without angina pectoris Intention tremor Carotid stenosis, bilateral Hyperlipidemia Nonrheumatic aortic (valve) stenosis Essential hypertension Tobacco dependence Bilateral inguinal hernia Left carotid bruit Abdominal aortic aneurysm (AAA) Anemia Subcutaneous mass of back PUD (peptic ulcer disease) Cough Arthritis Home Medications ?Medication ?Instructions ?Recorded ?Last Taken ?Type aspirin 81 mg tablet,delayed 81 mg PO DAILY heart heal th 03/02/22 01/12/24 History release rosuvastatin 5 mg tablet (Crestor) 5 mg PO DAILY uzma sterol 03/02/22 03/02/22 History amlodipine 5 mg tablet 5 mg PO DAILY #30 tabs 02/28 Unknown Rx cholecalciferol (vitamin D3) 25 25 mcg PO DAILY Unknown History mcg (1,000 unit) capsule metoprolol tartrate 25 mg tablet 12.5 mg (1/2 x 25 mg) PO BID #90 03/22/24 06/27/24 05:30 Rx tabs acetaminophen 500 mg capsule 1,000 mg PO Q6H PRN pain 06/13/24 Unknown History fluticasone fur. 200 mcg-umeclid 1 inh inhalation RUFINA Y PRN SOB 06/13/24 Unknown History 62.5 mcg-vilant 25 mcg inhalat.powder (Trelegy Ellipta) Allergy/AdvReac Type Severity Reaction Status Date / Time No Known Allergies Allergy Verified 11/07/24 15:31 Family History Sister Asthma Mother Arthritis Diabetes Brother Cancer Unsure what kind- just a lump on his neck Surgical History Neoplasm of bladder Hx of inguinal hernia repair S/P inguinal hernia repair History of cardiac catheterization S/P AAA repair 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) History of left heart catheterization (11/27/18) History of aortic valve replacement (02/12/19) Social History household members: none Smoking Status: Current every day smoker tobacco type: cigarettes quit status: has quit before alcohol intake: never substance use type: does not use caffeine: Yes Type: coffee Number of servings: 3 what type of physical activity do you participate in: other frequency: 3-4 times per week seatbelt use: always Prior Cardiac Testing/Procedures Prior Cardiac Testing/Procedures: Echocardiogram (EF 55%. ) Addt'l Information Additional Findings: Cardiology history reviewed reviewed Review of Systems (Anesthesia) ROS Narrative System reviewed and no additional complaints, except as documented. Physical Exam Const alert, oriented x3 and average body habitus Resp normal respiratory effort and normal air movement Auscultation: clear to auscultation bilaterally Cardio regular rate and regular rhythm Back/Spine normal ROM Neuro oriented x3 and moves all extremities
[2024-11-07 20:04] LABS: Reflex Lactate? Y
--- NOTE | 2024-11-07 20:06 | EX.PCM.CON.G ---
HPI Consult Data Date of Consult: 11/07/24 HPI Narrative Reason for Consultation: GI bleed HPI Narrative: ABELARDO ROBERTS, is a 74 M who presents to the emergency room with multiple episodes of abdominal pain followed by lower GI bleeding. He underwent a transurethral bladder resection on 06/27/[address] Winston for concerns of a bladder mass. He states that he will be starting chemo treatments soon at [facility]. Patient has a history of aortic stenosis diagnosed in 2012. Patient underwent coronary angiography which revealed 80% stenosis in the RCA and patient was referred to [facility] for aortic valve and RCA revascularization. Patient underwent AVR plus CABG x 1 (Perimount #23, SVG to RCA at [facility] on 02/12/2019). Patient did well postoperatively with echocardiogram demonstrating preserved ejection fraction, normally functioning prosthetic aortic valve with peak gradient 25 mmHg and mean gradient of 13 mmHg. Patient was diagnosed with an abdominal aortic aneurysm and was sent to [place] for an opinion. It was noted to measure 5.1 cm on his abdominal pelvic CT scan. He did suggest to the surgeon that he was not currently interested in aortic surgery. He was seen in the emergency department 12/28/2021 for abdominal pain in which his CT scan demonstrated 5 cm infrarenal abdominal aortic aneurysm with adjacent retroperitoneal fluid suggesting of aneurysm leak. Patient was transferred to [facility] facility and on 12/28/2021 patient proceeded with thoracoretroperitoneal ruptured juxtarenal abdominal aortic aneurysm repair. I was called to see him due to the fact that he had multiple episodes of lower GI bleeding. His initial hemoglobin was 9.3. He dropped down to 7.1. He did get transfused 1 unit of packed red blood cells. He had a CT angiography to look at his aortic aneurysm but it did not show any signs of bleeding from the aneurysm. I did show some thickening in his rectosigmoid colon in his duodenum. [facility] Medical History Bladder cancer Wears dentures Wears glasses Bruising Easy bruising High cholesterol Smoker Shortness of breath on exertion History of echocardiogram Cardiology follow-up encounter Stage 3b chronic kidney disease (CKD) Thrombocytopenia Chronic kidney insufficiency Pleural effusion Secondary pulmonary arterial hypertension Atherosclerotic heart disease of [place] coronary artery without angina pectoris Intention tremor Carotid stenosis, bilateral Hyperlipidemia Nonrheumatic aortic (valve) stenosis Essential hypertension Tobacco dependence Bilateral inguinal hernia Left carotid bruit Abdominal aortic aneurysm (AAA) Anemia Subcutaneous mass of back PUD (peptic ulcer disease) Cough Arthritis Home Medications ?Medication ?Instructions ?Recorded ?Last Taken ?Type aspirin 81 mg tablet,delayed 81 mg PO DAILY heart health 03/02/22 01/12/24 History release rosuvastatin 5 mg tablet (Crestor) 5 mg PO DAILY cholesterol 03/02/22 03/02/22 History amlodipine 5 mg tablet 5 mg PO DAILY #30 tabs 02/28/23 Unknown Rx cholecalciferol (vitamin D3) 25 25 mcg PO DAILY 10/27/23 Unknown History mcg (1,000 unit) capsule metoprolol tartrate 25 mg tablet 12.5 mg (1/2 x 25 mg) PO BID #90 03/22/24 06/27/24 05:30 Rx tabs acetaminophen 500 mg capsule 1,000 mg PO Q6H PRN pain 06/13/24 Unknown History fluticasone fur. 200 mcg-umeclid 1 inh inhalation DAILY PRN SOB 06/13/24 Unknown History 62.5 mcg-vilant 25 mcg inhalat.powder (Trelegy Ellipta) Allergy/AdvReac Type Severity Reaction Status Date / Time No Known Allergies Allergy Verified 11/07/24 15:31 Family History Sister Asthma Mother Arthritis Diabetes Brother Cancer Unsure what kind- just a lump on his neck Surgical History Neoplasm of bladder Hx of inguinal hernia repair S/P inguinal hernia repair History of cardiac catheterization S/P AAA repair 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) History of left heart catheterization (11/27/18) History of aortic valve replacement (02/12/19) Social History Smoking Status: Current every day smoker tobacco type: cigarettes quit status: has quit before alcohol intake: never substance use type: does not use caffeine: Yes Type: coffee Number of servings: 3 what type of physical activity do you participate in: other frequency: 3-4 times per week seatbelt use: always ROS Constitutional Constitutional: Denies fatigue, fever(s), poor appetite, weight gain or weight loss Gastrointestinal Gastrointestinal: Denies belching, bloating, change in bowel habits, change in stool character, chewing difficulty, coffee ground emesis, constipation, cramping, diarrhea, dyspepsia, dysphagia, early satiety, excessive flatus, fecal incontinence, heartburn, hematemesis, hematochezia, hemorrhoids, loose stools, melena, nausea, odynophagia, rectal bleeding, tenesmus, vomiting or weight changes Physical Exam Const alert, oriented x3, no apparent distress and healthy appearing General Appearance: cooperative GI normal to inspection, nondistended, normoactive bowel sounds, soft to palpation, non-tender and non-distended Percussion: normal to percussion Rectal Exam: deferred Lab / Micro Data 11/07/24 17:57 11/07/24 15:55 Labs: Laboratory Results - last 24 hr 11/07/24 15:55: WBC 10.8, RBC 3.01 L, Hgb 9.1 L, Hct 29.2 L, MCV 97.0 H, MCH 30.2, MCHC 31.2 L, RDW Std Deviation 55.2 H, RDW Coeff of Manjit 15.6 H, Plt Count 229, MPV 8.9, Immature Gran % (Auto) 0.700, Neut % (Auto) 76.0 H, Lymph % (Auto) 11.8 L, [place] % (Auto) 9.8, Eos % (Auto) 1.1, Baso % (Auto) 0.6, Absolute Neuts (auto) 8.2 H, Absolute Lymphs (auto) 1.27, Nucleated RBC % 0, Sodium 141, Potassium 5.3 H, Chloride 106, Carbon Dioxide 22.6, Anion Gap 12, BUN 47 H, Creatinine 2.09 H, Est GFR (MDRD) Non-Af 33 L, BUN/Creatinine Ratio 22.4 H, Glucose 139 H, Lactic Acid 2.2 H*, Calcium 8.3, Total Bilirubin 0.15, AST 14, ALT 9, Alkaline Phosphatase 68, Total Protein 5.7 L, Albumin 3.3 L, Globulin 2.4, Albumin/Globulin Ratio 1.4, Lipase 43 11/07/24 17:26: Urine Color Straw, Urine Clarity Cloudy, Urine pH 6.0, Ur Specific [place] 1.015, Urine Protein 100 H, Urine Glucose (UA) Normal, Urine Ketones Negative, Urine Occult Blood 50 H, Urine Nitrite Negative, Urine Bilirubin Negative, Urine Urobilinogen Normal, Ur Leukocyte Esterase 500 H, Urine RBC 5-10 SEEN, Urine WBC >100 SEEN, Ur Squamous Epith Cells 0-5 SEEN, Ur Transition Epith Cell 0-5 SEEN, Urine Bacteria 2+, Urine Mucus 0 SEEN 11/07/24 17:57: Hgb 7.8 L, Troponin T High Sens 16 11/07/24 18:30: PT 14.5, INR 1.1, APTT 26.5 11/07/24 18:40: Blood Type A POSITIVE, Antibody Screen NEGATIVE, Crossmatch See Detail 11/07/24 18:40: Crossmatch See Detail Micro: Microbiology 11/07/24 15:45 Stool Stool Occult Blood (ASIF) - Final Occult Blood Positive Imaging Radiology Impression Abdomen/Pelvis CTA 11/07/24 15:42 IMPRESSION: 1. No CT evidence for active gastrointestinal hemorrhage. 2. Mild wall thickening and inflammatory changes involving the proximal duodenum, and distal rectosigmoid colon suggestive of enterocolitis. Nonspecific diarrheal illness with fluid in the colon. 3. Marked wall thickening of the bladder with surrounding inflammatory fat stranding, may be infectious/inflammatory or related to known neoplasm. Possibly treatment related change. 4. Similar mild left hydroureteronephrosis. Evidence of left ureteritis/pyelitis. 5. Stable appearance of irregular diffuse fusiform aneurysmal dilatation of the infrarenal abdominal aorta and bilateral common iliac arteries, with eccentric noncalcified plaque/mural thrombus. Reading Location: [facility] Chest X-Ray 11/07/24 18:53 IMPRESSION: No focal consolidation. Extensive pulmonary emphysema. Reading Location: [facility] Assessment & Plan Assessment/Plan (1) GI bleed: PLAN: Differential diagnosis for the lower GI bleed would be radiation-induced proctitis, diverticular bleed, angiodysplasia, aortic enteric fistula with bleeding. He will undergo colonoscopy and possible upper endoscopy. He was explained alternatives, risk and benefits could not withstand bleeding, infection, sepsis, perforation, need for emergent urgent . He will have an ASA of 3. Charges/Coding Visit Charges Inpatient E&M: 95366 Init Hosp L3
--- NOTE | 2024-11-07 20:13 | PCM.HP.STD ---
HPI - General General Date of Admission: 11/07/24 Date of Service: 11/07/24 Chief Complaint: BRBPR, copious. HPI Narrative The patient is a 74 y/o M w/ PMHx: COPD, Bladder Cancer s/p transurethral resection on chemotherapy and possibly radiation following with [facility] oncology, Vavular heart disease status post AVR, CAD status post CABG x 1, CKD stage III unclear subtype per GFR trending, HTN, HLD, Tobacco use, AAA s/p rupture s/p repair who presents to the [facility] ED on 11/07/2024 with significant bright red blood per rectum with his last chemotherapy noted 10/19/2024 in addition to ongoing radiation with last noted 10/22/2024 with significant bright red blood ongoing eventually becoming darker with severe significant ongoing bowel movements foul-smelling in nature with no associated abdominal pain nor any nausea or emesis prompting ED evaluation. Patient did note when he started to have copious bleeding in the ED he did have some mild abdominal cramping. He denies associated lightheadedness/dizziness/dyspnea/chest pain. He notes chronic dysuria and frequency. Workup in the ED included T96.1 Temporal, heart rate 79, BP 83/63, respiratory rate 18, 97% on room air with BP at 1900 decreasing down to 77/60 and then 78/55 with a MAP of 62 improving following PRBC with most recent vitals T97.6, heart rate 78, BP [birth year]/1972, respiratory rate 16, 98% oxygenation, CBC with WC 10.8, hemoglobin initially 9.1 at 1555 with repeat at 1757 noted to be hemoglobin 7.8, platelet 229 with left shift, unremarkable coags, CMP with potassium 5.3 not noted to be hemolyzed, BUN/creatinine 47/2.09, GFR 33, glucose 139, lactic acid 2.2, hepatic profile not marked appearing, troponin 16, urine noted to be cloudy, urine protein 100, occult blood 50, negative nitrite, leukocyte esterase 500, urine RBCs 5-10, urine WBCs greater than 100 with 2+ urine bacteria, CTA abdomen and pelvis with and without contrast with no active hemorrhaging although patient with significant active bleed in the ED which had been profuse prompting emergent transition to endoscopy for colonoscopy with Dr. Floyd, also noted mild wall thickening and inflammatory changes involving the proximal duodenum, distal rectosigmoid colon suggestive of enterocolitis, marked wall thickening of the bladder with surrounding inflammatory fat stranding, similar mild left hydroureteronephrosis with evidence of a left urethritis/pyelitis, stable appearing irregular diffuse fusiform aneurysmal dilatation of the infrarenal abdominal aorta and bilateral common iliac arteries with eccentric noncalcified plaque/mural thrombus, chest x-ray with no acute cardiopulmonary findings however extensive pulmonary emphysema evident. In the ED patient administered 1 unit PRBC stat given hemorrhagic shock. Patient was evaluated in the endoscopy suite at [facility] on 11/07/2024 and at the time of evaluation, transfer to a tertiary hospital was felt to be in the patient's best interest due to significant lower GI bleed, hemorrhagic shock, high concern for friability of bowel given ongoing and very recent radiation with high risk for rebleeding. Patient had transitioned from the ED to the endoscopy lab for emergent endoscopy given his hemorrhagic shock thus transfer attempts were not initiated initially in the ED. Discussed case with Dr. Floyd who agreed that transfer even following endoscopy would be inpatient best interest in order to have IR capabilities if necessary and higher level of care with onsite warehouse loader team should patient decompensate again. Given the need for ongoing medical care, in the interim in the best interest of the patient, will proceed with admission to [facility] ICU following endoscopy and care will be provided here until tertiary facility has an available staffed bed. Pt and/or family are aware of the transfer, the reasoning behind the need for transfer, and that until a staffed bed becomes available, we will provide evidence-based care to the best of our abilities, with the limitations of care here being fully addressed. Discussed this plan of care with the patient and the family and did contact per discussion with Dr. Floyd [facility] as initial and they at this time are requesting that they be recontacted once the endoscopy is complete to know better where to place the patient. [facility] Medical History Bladder cancer Wears dentures Wears glasses Bruising Easy bruising High cholesterol Smoker Shortness of breath on exertion History of echocardiogram Cardiology follow-up encounter Stage 3b chronic kidney disease (CKD) Thrombocytopenia Chronic kidney insufficiency Pleural effusion Secondary pulmonary arterial hypertension Atherosclerotic heart disease of [place] coronary artery without angina pectoris Intention tremor Carotid stenosis, bilateral Hyperlipidemia Nonrheumatic aortic (valve) stenosis Essential hypertension Tobacco dependence Bilateral inguinal hernia Left carotid bruit Abdominal aortic aneurysm (AAA) Anemia Subcutaneous mass of back PUD (peptic ulcer disease) Cough Arthritis Home Medications ?Medication ?Instructions ?Recorded ?Last Taken ?Type aspirin 81 mg tablet,delayed 81 mg PO DAILY heart health 03/02/22 01/12/24 History release rosuvastatin 5 mg tablet (Crestor) 5 mg PO DAILY cholesterol 03/02/22 03/02/22 History amlodipine 5 mg tablet 5 mg PO DAILY #30 tabs 02/28/23 Unknown Rx cholecalciferol (vitamin D3) 25 25 mcg PO DAILY 10/27/23 Unknown History mcg (1,000 unit) capsule metoprolol tartrate 25 mg tablet 12.5 mg (1/2 x 25 mg) PO BID #90 03/22/24 06/27/24 05:30 Rx tabs acetaminophen 500 mg capsule 1,000 mg PO Q6H PRN pain 06/13/24 Unknown History fluticasone fur. 200 mcg-umeclid 1 inh inhalation DAILY PRN SOB 06/13/24 Unknown History 62.5 mcg-vilant 25 mcg inhalat.powder (Trelegy Ellipta) Allergy/AdvReac Type Severity Reaction Status Date / Time No Known Allergies Allergy Verified 11/07/24 15:31 Family History Sister Asthma Mother Arthritis Diabetes Brother Cancer Unsure what kind- just a lump on his neck Surgical History Neoplasm of bladder Hx of inguinal hernia repair S/P inguinal hernia repair History of cardiac catheterization S/P AAA repair 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) History of left heart catheterization (11/27/18) History of aortic valve replacement (02/12/19) Social History (Updated 11/07/24 @ 20:[address] Suzanne Medley MD) household members: none Smoking Status: Current every day smoker tobacco type: cigarettes Smoking packs per day: 0.25 Smoking cigarettes per day: 5.0 quit status: has quit before alcohol intake: never substance use type: does not use caffeine: Yes Type: coffee Number of servings: 3 what type of physical activity do you participate in: other frequency: 3-4 times per week seatbelt use: always ROS ROS Narrative Admission Review of Systems: CONSTITUTIONAL: No weight loss, fever, chills, + weakness or fatigue. HEENT: Eyes: No visual loss, blurred vision, double vision or yellow sclerae. Ears, Nose, Throat: No hearing loss, sneezing, congestion, runny nose or sore throat. SKIN: No rash or itching, lesions, wounds except + occasional stage ecchymoses, abrasion. CARDIOVASCULAR: No chest pain, chest pressure or chest discomfort, palpitations, edema, orthopnea, syncopal events. RESPIRATORY: No shortness of breath, cough or sputum, wheezing, hemoptysis. GASTROINTESTINAL: + Bright red blood per rectum, copious continued loose stools, mild abdominal cramping. No anorexia, nausea, vomiting or diarrhea, no marked abdominal pain. GENITOURINARY: + Chronic dysuria, frequency. No urgency or retention. NEUROLOGICAL: No headache, dizziness, syncope, paralysis, ataxia, numbness or tingling in the extremities, focal weakness, change in bowel or bladder control, seizure. MUSCULOSKELETAL: + muscle, back pain, joint pain or stiffness. HEMATOLOGIC: + Acute anemia, easy bleeding/bruising. LYMPHATICS: No enlarged nodes. No history of splenectomy. PSYCHIATRIC: No history of depression or anxiety. ENDOCRINOLOGIC: No reports of sweating, cold or heat intolerance. No polyuria or polydipsia. ALLERGIES: No history of asthma, hives, eczema or rhinitis. Vital Signs Vital Signs Vital Signs: 11/07/24 15:32 11/07/24 15:57 11/07/24 16:35 Temperature 96.1 F L Temperature Source Temporal Pulse Rate 79 79 Respiratory Rate 18 16 Blood Pressure 83/63 L 102/72 132/75 H Blood Pressure Mean 69 82 94 Blood Pressure Source Blood Pressure Position Blood Pressure Location Pulse Ox 97 92 Oxygen Delivery Method Room Air Room Air Oxygen Flow Rate (L/min) 11/07/24 17:00 11/07/24 18:00 11/07/24 18:35 Temperature Temperature Source Pulse Rate 76 110 H 79 Respiratory Rate 30 H 18 Blood Pressure 144/75 H 142/126 H Blood Pressure Mean 98 131 Blood Pressure Source Blood Pressure Position Blood Pressure Location Pulse Ox 99 Oxygen Delivery Method Nasal Cannula Oxygen Flow Rate (L/min) 11/07/24 18:45 11/07/24 18:48 11/07/24 18:54 Temperature 96.6 F L Temperature Source Temporal Pulse Rate 81 77 Respiratory Rate 16 Blood Pressure 128/114 H 77/60 L 78/55 L Blood Pressure Mean 118 65 62 Blood Pressure Source Blood Pressure Position Blood Pressure Location Pulse Ox 92 Oxygen Delivery Method Oxygen Flow Rate (L/min) 11/07/24 19:00 11/07/24 19:00 11/07/24 19:10 Temperature 97.3 F L 97.3 F L 97.3 F L Temperature Source Temporal Temporal Temporal Pulse Rate 76 72 75 Respiratory Rate 22 H 17 20 H Blood Pressure 95/63 112/73 113/71 Blood Pressure Mean 73 86 85 Blood Pressure Source Monitor Blood Pressure Position Blood Pressure Location Pulse Ox 98 97 Oxygen Delivery Method Nasal Cannula Nasal Cannula Oxygen Flow Rate (L/min) 2 11/07/24 19:19 11/07/24 19:37 11/07/24 19:45 Temperature 97.6 F L 97.6 F L Temperature Source Temporal Pulse Rate 74 78 74 Respiratory Rate 16 16 14 Blood Pressure 125/43 H 124/43 H 130/91 H Blood Pressure Mean 70 70 104 Blood Pressure Source Monitor Blood Pressure Position Semi-Fowlers Blood Pressure Location Right Arm Pulse Ox 98 98 100 Oxygen Delivery Method Nasal Cannula Oxygen Flow Rate (L/min) 2 11/07/24 20:10 Temperature 97.6 F L Temperature Source Pulse Rate 78 Respiratory Rate 16 Blood Pressure 124/43 H Blood Pressure Mean Blood Pressure Source Blood Pressure Position Blood Pressure Location Pulse Ox 98 Oxygen Delivery Method Nasal Cannula Oxygen Flow Rate (L/min) 2 Weight Weight: 141 lb 15.643 oz Body Mass Index (BMI) 22.8 Physical Exam Narrative Physical Examination: General: Awake, alert, oriented to self, place and recent events, remains cooperative, laying in the bed in the endoscopy suite, pale appearing, fatigued. Skin: Pale color, normal turgor, no icterus, no cyanosis, occasional stage ecchymoses, abrasion. HEENT: AT/NC, EOMI, PERRLA, moderately dry MM, no carotid bruits or JVD noted. Lungs: Severely diminished, greater bases, mildly increased respiratory rate but no distress, occasional soft end expiratory wheeze, no rales or rhonchi. Heart: Regular rate and rhythm; no gallop, rub audible, status post previous AVR. Abdomen: Soft, NTTP, ND, significant hyperactive BS, no markedly appreciated HSM. Extremities: No cyanosis, no clubbing, no significant distal edema noted. Neurological: Patient awake, alert, oriented as noted, cognitive function currently appears baseline intact; pupils equally reactive to light and accommodation, cranial nerves grossly normal, moving all 4 extremities, no focal deficits, strength severely globally decreased secondary to acute presentation and underlying comorbidities. Psychiatric: Affect appears flat, fatigued, no acute evidence of depressive or anxiety feelings. Results Lab / Micro Data 11/07/24 20:15 11/07/24 15:55 Labs: Laboratory Results - last 24 hr 11/07/24 15:55: WBC 10.8, RBC 3.01 L, Hgb 9.1 L, Hct 29.2 L, MCV 97.0 H, MCH 30.2, MCHC 31.2 L, RDW Std Deviation 55.2 H, RDW Coeff of Manjit 15.6 H, Plt Count 229, MPV 8.9, Immature Gran % (Auto) 0.700, Neut % (Auto) 76.0 H, Lymph % (Auto) 11.8 L, Johnson % (Auto) 9.8, Eos % (Auto) 1.1, Baso % (Auto) 0.6, Absolute Neuts (auto) 8.2 H, Absolute Lymphs (auto) 1.27, Nucleated RBC % 0, Sodium 141, Potassium 5.3 H, Chloride 106, Carbon Dioxide 22.6, Anion Gap 12, BUN 47 H, Creatinine 2.09 H, Est GFR (MDRD) Non-Af 33 L, BUN/Creatinine Ratio 22.4 H, Glucose 139 H, Lactic Acid 2.2 H*, Calcium 8.3, Total Bilirubin 0.15, AST 14, ALT 9, Alkaline Phosphatase 68, Total Protein 5.7 L, Albumin 3.3 L, Globulin 2.4, Albumin/Globulin Ratio 1.4, Lipase 43 11/07/24 17:26: Urine Color Straw, Urine Clarity Cloudy, Urine pH 6.0, Ur Specific [place] 1.015, Urine Protein 100 H, Urine Glucose (UA) Normal, Urine Ketones Negative, Urine Occult Blood 50 H, Urine Nitrite Negative, Urine Bilirubin Negative, Urine Urobilinogen Normal, Ur Leukocyte Esterase 500 H, Urine RBC 5-10 SEEN, Urine WBC >100 SEEN, Ur Squamous Epith Cells 0-5 SEEN, Ur Transition Epith Cell 0-5 SEEN, Urine Bacteria 2+, Urine Mucus 0 SEEN 11/07/24 17:57: Hgb 7.8 L, Troponin T High Sens 16 11/07/24 18:30: PT 14.5, INR 1.1, APTT 26.5 11/07/24 18:40: Blood Type A POSITIVE, Antibody Screen NEGATIVE, Crossmatch See Detail 11/07/24 18:40: Crossmatch See Detail Micro: Microbiology 11/07/24 15:45 Stool Stool Occult Blood (ASIF) - Final Occult Blood Positive Imaging Radiology Impression Abdomen/Pelvis CTA 11/07/24 15:42 IMPRESSION: 1. No CT evidence for active gastrointestinal hemorrhage. 2. Mild wall thickening and inflammatory changes involving the proximal duodenum, and distal rectosigmoid colon suggestive of enterocolitis. Nonspecific diarrheal illness with fluid in the colon. 3. Marked wall thickening of the bladder with surrounding inflammatory fat stranding, may be infectious/inflammatory or related to known neoplasm. Possibly treatment related change. 4. Similar mild left hydroureteronephrosis. Evidence of left ureteritis/pyelitis. 5. Stable appearance of irregular diffuse fusiform aneurysmal dilatation of the infrarenal abdominal aorta and bilateral common iliac arteries, with eccentric noncalcified plaque/mural thrombus. Reading Location: [facility] Chest X-Ray 11/07/24 18:53 IMPRESSION: No focal consolidation. Extensive pulmonary emphysema. Reading Location: [facility] Assessment & Plan Assessment/Plan (1) GI bleed: (2) Hemorrhagic shock: PLAN: Plan The patient is a 74 y/o M w/ PMHx: COPD, Bladder Cancer s/p transurethral resection on chemotherapy and possibly radiation following with [facility] oncology, Vavular heart disease status post AVR, CAD status post CABG x 1, CKD stage III unclear subtype per GFR trending, HTN, HLD, Tobacco use, AAA s/p rupture s/p repair who presents to the [facility] ED on 11/07/2024 with significant bright red blood per rectum with his last chemotherapy noted 10/19/2024 in addition to ongoing radiation with last noted 10/22/2024 with significant bright red blood ongoing eventually becoming darker with severe significant ongoing bowel movements foul-smelling in nature with no associated abdominal pain nor any nausea or emesis prompting ED evaluation. #1. Acute Hermorrhagic Shock secondary to Acute Lower GI Bleed w/ resultant Acute Blood Loss Anemia with associated lactic acidosis suspected primary secondary to associated hypovolemia/demand: Patient emergently transitioned to endoscopy given severity of bleeding despite CTA with no acute bleed evidence, continue to have copious blood per rectum with MAP less than 65, given significant history concern for friability of bowel also, in addition to fact this is a lower component may require IR potential thus discussed with gastroenterology and will plan to initiate transfer however in the interim while awaiting a tertiary facility bed, will admit to the ICU, maintain on telemetry monitoring, continue to cycle H&H, continue PRBC administration initiate per ED, hold all antiplatelet therapy, initiate protonix with ongoing NPO status, continue GI consultation, request warehouse loader involvement while awaiting for tertiary facility transfer. #2. Acute Complicated Urinary Tract Infection with unchanged mild left hydroureteronephrosis with evidence of a left urethritis/pyelitis: UA upon ED evaluation remarkable, pending UCx, continue IVFs, monitor I/Os, continue IV Rocephin given no previous cultures notable w/ transition as able pending sensitivities and speciation. #3. Lactic acidosis: Likely secondary to shock as noted, mildly elevated 2.2, continue treatment as noted) per facility protocol if remains at [facility] as transfer is pending. #4. Hyperkalemia, mild: Admission potassium 5.3, not markedly elevated, will continue hydration, repeat CMP in AM if remains at [facility] as transfer is pending. #5. Bladder cancer: Patient with transurethral bladder resection 06/27/[address] Winston, following with [facility] oncology on chemotherapy and radiation with last chemotherapy 10/19/2024 and last radiation 10/22/2024, magnesium and phosphorus levels requested, complicates presentation as noted #2, encourage continued follow-up outpatient with oncology and urology as previously arranged. #6. Chronic stable appearing in for abdominal aortic aneurysm, fusiform as well as bilateral common iliac arteries: Patient with noted 12/28/2021 CT abdomen imaging demonstrating at that time 5 cm infrarenal abdominal aortic aneurysm with adjacent retroperitoneal fluid suggesting of aneurysm leak transferred to [facility] undergoing thoracoretroperitoneal for ruptured juxtarenal abdominal aortic aneurysm repair. Noted on CTA, stable appearing, encourage continued follow-up with vascular surgery as previously arranged. #7. Valvular heart disease: Patient with history of aortic stenosis diagnosed in 2012, status post AVR while also having CABG, most recent ECHO 04/29/2023 demonstrated preserved ejection fraction, no regional wall motion abnormalities, aortic valve with peak gradient 25 mmHg and mean valve gradient 13 mmHg. #8. CAD: Status post CABG x 1 with SVG to RCA 02/12/2019 at [facility], additionally at the same time had AVR, temporally holding antiplatelet therapy, hold metoprolol, continue statin therapy. #9. Chronic Kidney Disease Stage III, unclear subtype or GFR trending: Admission BUN/Cr 47/2.09, GFR 33, baseline renal function primarily 1.4-2.6 but is vacillated, most recently 07/09/2024 creatinine 1.74, repeat BMP in AM. #10. Hypertension: Given presentation with shock as noted, holding all hypertensive regimen, add back once clinically appropriate. #11. Hyperlipidemia: Will continue patient statin therapy. #12. Tobacco Abuse: Encouraged cessation, inpatient consultation per RT, NR if desired. #13. Chronic COPD: Will temporally hold home inhalers and in the interim we will transition to ATC duonebs, PRN albuterol, HOB, IS parameters. Encourage tobacco cessation. #14. DVT prophylaxis: SCDs. #15. CODE status: Patient HCPOA notes his daughter and son are his HCPOA and living will is currently in place. Discussed CODE status at length including difference between FULL code, DNR-CCA and DNR-CC status. Following discussions about the differences in these status, requested DNR-CCA, no intubation. Clarified also if he should still have a heart beat but had respiratory distress and he noted he would not want to be intubation. He does not want any aggressive interventions or procedures. Advanced Care Planning Face to Face Time: 16 minutes. Charges/Coding Visit Charges Inpatient E&M: 19061 Init Hosp L3 Procedures Hospitalists Procedures: 68927 Advncd Care Plan 30 Min
[2024-11-07 20:22] LABS: Hematocrit 33.7 % (40-54); Hemoglobin 10.6 g/dL (13.0-16.5); Immature Granulocytes Count 0.080 X10^3/uL (0.0-0.0); Mean Corp Hgb Conc 31.5 g/dL (32-36); Mean Corpuscular Volume 96.0 fL (80-94); Mean Platelet Vol. 8.9 fl (6.2-12.0); NRBC Flagged by Analyzer 0 % (0-5); Platelet Count 156 K/mm3 (150-450); RBC Distribution Width CV 15.3 % (11.6-14.6); RBC Distribution Width SD 53.2 fl (35.1-43.9); Red Blood Count 3.51 M/mm3 (4.6-6.2); White Blood Count 8.5 K/mm3 (4.4-11.0)
[2024-11-07] MEDS: Lidocaine 1% (5 ml sdv) 5 ML Vial IV (20:32)
[2024-11-07 20:52] LABS: Magnesium 2.1 mg/dL (1.5-2.2)
[2024-11-07] MEDS: Epinephrine (1 mg/ml) 1 MG/ML VIAL (21:21)
[2024-11-07] MEDS: 0.9% Normal Saline (Pres. free 10 ML Vial (21:21)
--- NOTE | 2024-11-07 21:37 | OP.PROVAT_ITS ---
11/07/2024 Ezekiel Carrasco [address] [place] [address] Re : Upper GI endoscopy procedure for Fortunato Ivory Dear Dr. Carrasco This procedure was performed on Thursday, November 07, 2024. My impressions and recommendations are as follows: Impressions : - Normal esophagus. - Red blood in the entire stomach. - Spurting duodenal ulcer with a visible vessel. Injected. Treated with a heater probe. - Widely patent previous surgical anastomosis, characterized by ulceration was found in the duodenum. - No specimens collected. Recommendations : - Discharge patient to home. - NPO. - Continue present medications. My findings are described in the full procedure note, which is enclosed. If I can be of further assistance, please feel free to contact me at . Sincerely, Kamlesh Floyd, 11/07/2024 9:36:15 PM This report has been signed electronically.
--- NOTE | 2024-11-07 21:37 | OP.EGD_ITS ---
Patient Name: Fortunato Ivory Procedure Date: 11/07/2024 9:11 PM Date of : 1950 Age: 74 Procedure: Upper GI endoscopy Indications: Hematochezia Providers: Kamlesh Floyd DO Medicines: Monitored Anesthesia Care Patient Profile: This is a 74 year old male. Refer to note in patient chart for documentation of history and physical. Patient has symptoms of acute epigastric abdominal pain. Complications: No immediate complications. Procedure: Pre-Anesthesia Assessment: - Prior to the procedure, a History and Physical was performed, and patient medications and allergies were reviewed. The patient is competent. The risks and benefits of the procedure and the sedation options and risks were discussed with the patient. All questions were answered and informed consent was obtained. Patient identification and proposed procedure were verified by the physician in the pre-procedure area. Mental Status Examination: alert and oriented. Airway Examination: normal oropharyngeal airway and neck mobility. Respiratory Examination: clear to auscultation. CV Examination: normal. ASA Grade Assessment: II - A patient with mild systemic disease. After reviewing the risks and benefits, the patient was deemed in satisfactory condition to undergo the procedure. The anesthesia plan was to use monitored anesthesia care (MAC). Immediately prior to administration of medications, the patient was re-assessed for adequacy to receive sedatives. The heart rate, respiratory rate, oxygen saturations, blood pressure, adequacy of pulmonary ventilation, and response to care were monitored throughout the procedure. The physical status of the patient was re-assessed after the procedure. After obtaining informed consent, the endoscope was passed under direct vision. Throughout the procedure, the patient's blood pressure, pulse, and oxygen saturations were monitored continuously. The Endoscope was introduced through the mouth, and advanced to the fourth part of the duodenum. Small bowel enteroscopy was deemed necessary. The upper GI endoscopy was accomplished without difficulty. The patient tolerated the procedure well. Scope In: 9:12:56 PM Scope Out: 9:28:47 PM Total Procedure Duration Time 0 hours 15 minutes 51 seconds Findings: The examined esophagus was normal. Red blood was found in the entire examined stomach. One spurting cratered duodenal ulcer with a visible vessel was found in the duodenal bulb. The lesion was 30 mm in largest dimension. Area was successfully injected with 10 mL of a 0.1 mg/mL solution of epinephrine for drug delivery. Coagulation for hemostasis using heater probe was successful. Estimated blood loss was minimal. There was evidence of a widely patent previous surgical anastomosis in the duodenal bulb. This was characterized by ulceration. Impression: - Normal esophagus. - Red blood in the entire stomach. - Spurting duodenal ulcer with a visible vessel. Injected. Treated with a heater probe. - Widely patent previous surgical anastomosis, characterized by ulceration was found in the duodenum. - No specimens collected. Recommendation: - Discharge patient to home. - NPO. - Continue present medications. Procedure Code(s): --- Professional --- 19409, Small intestinal endoscopy, enteroscopy beyond second portion of duodenum, not including ileum; with control of bleeding (eg, injection, bipolar cautery, unipolar cautery, laser, heater probe, stapler, plasma milk drying machine operator) 38263, Unlisted procedure, small intestine CPT copyright 2021 [employer]. All rights reserved. The codes documented in this report are preliminary and upon axle bearing polisher review may be revised to meet current compliance requirements. Kamlesh Floyd DO 11/07/2024 9:36:15 PM This report has been signed electronically. Number of Addenda: 0 Note Initiated On: 11/07/2024 9:11 PM
--- NOTE | 2024-11-07 21:39 | OP.COLON_ITS ---
Patient Name: Fortunato Ivory Procedure Date: 11/07/2024 7:39 PM Date of : 1950 Age: 74 Procedure: Colonoscopy Indications: Hematochezia Providers: Kamlesh Floyd DO Medicines: Monitored Anesthesia Care Patient Profile: This is a 74 year old male. Refer to note in patient chart for documentation of history and physical. Last Colonoscopy: date unknown. Unable to locate last colonoscopy report. Complications: No immediate complications. Procedure: Pre-Anesthesia Assessment: - Prior to the procedure, a History and Physical was performed, and patient medications and allergies were reviewed. The patient is competent. The risks and benefits of the procedure and the sedation options and risks were discussed with the patient. All questions were answered and informed consent was obtained. Patient identification and proposed procedure were verified by the physician. Mental Status Examination: alert and oriented. Airway Examination: normal oropharyngeal airway and neck mobility. Respiratory Examination: clear to auscultation. CV Examination: normal. ASA Grade Assessment: II - A patient with mild systemic disease. After reviewing the risks and benefits, the patient was deemed in satisfactory condition to undergo the procedure. The anesthesia plan was to use monitored anesthesia care (MAC). Immediately prior to administration of medications, the patient was re-assessed for adequacy to receive sedatives. The heart rate, respiratory rate, oxygen saturations, blood pressure, adequacy of pulmonary ventilation, and response to care were monitored throughout the procedure. The physical status of the patient was re-assessed after the procedure. After I obtained informed consent, the scope was passed under direct vision. Throughout the procedure, the patient's blood pressure, pulse, and oxygen saturations were monitored continuously. The adult colonoscope was introduced through the anus and advanced to the terminal ileum. The colonoscopy was performed without difficulty. The patient tolerated the procedure well. Scope In: 8:39:26 PM Scope Withdrawal Time 0 hours 12 minutes 40 seconds Scope Out: 9:01:26 PM Total Procedure Duration Time 0 hours 22 minutes 0 seconds Findings: The perianal and digital rectal examinations were normal. Hematin (altered blood/jlcvgz-mpxtpo-gzjb material) was found in the entire colon. The distal ileum and terminal ileum contained hematin (altered blood/kiakss-zlouxz-iyqu material). Impression: - Blood in the entire examined colon. - Blood in the distal ileum and in the terminal ileum. - No specimens collected. Recommendation: - Return patient to ICU for ongoing care. - Resume previous diet. - Continue present medications. - No recommendation at this time regarding repeat colonoscopy. Procedure Code(s): --- Professional --- 31421, Colonoscopy, flexible; diagnostic, including collection of specimen(s) by brushing or washing, when performed (separate procedure) CPT copyright 2021 [employer]. All rights reserved. The codes documented in this report are preliminary and upon retail account manager review may be revised to meet current compliance requirements. Kamlesh Floyd DO 11/07/2024 9:39:04 PM This report has been signed electronically. Number of Addenda: 0 Note Initiated On: 11/07/2024 7:39 PM
--- NOTE | 2024-11-07 21:39 | OP.PROVAT_ITS ---
11/07/2024 Ezekiel Carrasco [address] [place] [address] Re : Colonoscopy procedure for Fortunato Ivory Dear Dr. Carrasco This procedure was performed on Thursday, November 07, 2024. My impressions and recommendations are as follows: Impressions : - Blood in the entire examined colon. - Blood in the distal ileum and in the terminal ileum. - No specimens collected. Recommendations : - Return patient to ICU for ongoing care. - Resume previous diet. - Continue present medications. - No recommendation at this time regarding repeat colonoscopy. My findings are described in the full procedure note, which is enclosed. If I can be of further assistance, please feel free to contact me at . Sincerely, Kamlesh Floyd, 11/07/2024 9:39:04 PM This report has been signed electronically.
--- NOTE | 2024-11-07 22:00 | PCM.POST.ANE ---
Anesthesia: Postop Eval I Current Vital Signs Temperature: 36 F Pulse Rate: 72 Blood Pressure: 129/80 Respiratory Rate: 15 Pulse Ox: 100 Oxygen Delivery Method: Venturi Mask Oxygen Flow Rate (L/min): 8 Assessment Airway patent: Yes Spontaneous unlabored respirations: Yes Mental status: Awake and Calm nausea: No Vomiting: No Anesthesia Complication: No Fluid Hydration Crystalloid volume administer (ml): 400 Total IV fluid infused: 400 Progress Note Post-operative progress note: Patient was transported to the ICU. Report given to ICU staff. Patient was HDS on arrival and following commands as well as conversing Anesthesia document: Postop Eval 1 completed: Yes
[2024-11-07] MEDS: 0.9% Normal Saline (1000mL) 1,000 ML 100 ML IV (22:01)
--- NOTE | 2024-11-07 22:03 | PCM.POSTANE2 ---
Anesthesia Postop Eval I Sum Postop Eval Completion status Anesthesia document: Postop Eval 1 completed: Yes Anesthesia Postop Eval I Summary Anesthesia Postop Eval I Summary: Anesthesia Postop Eval I: Assessment Summary Airway patent Yes 11/07/24 22:02 Spontaneous unlabored Yes 11/07/24 22:02 respirations Mental status Awake,Calm 11/07/24 22:02 nausea No 11/07/24 22:02 Vomiting No 11/07/24 22:02 Anesthesia Postop Eval I: Fluid Summary Crystalloid volume administer 400 11/07/24 22:02 (ml) Colloids volume administered ( ml) Blood Product volume administered (ml) Total IV fluid infused 400 11/07/24 22:02 Anesthesia Postop Eval I: Summary Notes Anesthesia Complication No 11/07/24 22:02 Anesthesia Complication Comment: Post-operative progress note Patient was 11/07/24 22:02 transported to the ICU. Report given to ICU staff. Patient was HDS on arrival and following commands as well as conversing Anesthesia: Postop Eval II Evaluation Mental status: Awake and Calm Pain Level: 1 nausea: No Vomiting: No Progress Note Post-operative progress note: Patient evaluated in the ICU. HDS. No anesthetic complications Complications Anesthesia Complication: No
--- NOTE | 2024-11-07 22:23 | NURSING ---
Daughter is going to take all of patient's belongings home with him so [facility] doesn't have to worry about them.
[2024-11-07] MEDS: Pantoprazole Sodium 80 MG in 0.9% Normal Saline (50mL Bag) 15 ML 420 MG IV BOLUS (22:26)
[2024-11-07] MEDS: Pantoprazole Sodium 80 MG in 0.9% Normal Saline (100mL Bag) 80 ML 10 MG CONT INF (22:30)
[2024-11-07 22:36] LABS: Hematocrit 32.8 % (40-54); Hemoglobin 10.4 g/dL (13.0-16.5)
[2024-11-07] MEDS: 0.9% Saline Lock 10 ML Syringe IV (22:48)
--- NOTE | 2024-11-07 22:49 | NURSING ---
Daughter at bedside, signed transfer form d/t patient shaking. Patient and daughter understanding and agreeable to transfer. Report called to Marce Hankins. Awaiting life [facility] at this time.
--- NOTE | 2024-11-07 23:08 | DS.PCM_ITS ---
Providers Date of Admission: 11/07/24 Date of Discharge: 11/07/24 Primary Care Physician: Dr. Andrés Carrasco MD Consultations 11/07/24 21:49 Consult: Gastroenterology Routine Consulting Provider: [facility] Reason for Consult: ABLA, GI bleed, hemorrhagic shock. EMERGENT Consult: Yes MD Notified: Yes Date Notified: 11/07/24 Time Notified: 20:17 Method of Notification: ED Physician Initiated Consult: Vice Principal / Pulmonary Medicine Routine Consulting Provider: [facility]/Pulmonary Med Reason for Consult: Hemorrhagic shock, ABLA, GI bleed. EMERGENT Consult: No MD Notified: Yes Date Notified: 11/07/24 Time Notified: 20:17 Method of Notification: Text Reason For Visit: HEMORRHAGIC SHOCK, GI BLEED Diagnosis Discharge Diagnosis (1) GI bleed: Status: Acute Code(s): K92.2 - Gastrointestinal hemorrhage, unspecified (2) Hemorrhagic shock: Status: Acute Code(s): R57.8 - Other shock Plan: DISCHARGE DIAGNOSES: #1. Acute Hemorrhagic shock secondary to Acute GI Bleed (Unclear if lower component as entire bowel upper and lower with blood, upper with noted bleeding duodenal crater bleeding lesions s/p heater probe and injection with possible billroth 2 anatomical surgical presentation w/ resultant Acute Blood Loss Anemia with associated lactic acidosis suspected primary secondary to associated hypovolemia/demand #2. Acute Complicated Urinary Tract Infection with unchanged mild left hydroureteronephrosis with evidence of a left urethritis/pyelitis, unclear organism on transition to tertiary facility #3. Lactic acidosis, Likely secondary to shock as noted #4. Hyperkalemia, mild #5. Bladder cancer s/p TUBR on chemotherapy (10/19/24 last) and radiation (10/22/24 last) following with Dr. Rivers and Dr. Mcclendon #6. Chronic stable appearing in for abdominal aortic aneurysm, fusiform as well as bilateral common iliac arteries #7. Valvular heart disease status post AVR #8. CAD, Status post CABG x 1 with SVG to RCA 02/12/2019 CC #9. Chronic Kidney Disease Stage III, unclear subtype or GFR trending (baseline renal function primarily 1.4-2.6) #10. Hypertension #11. Hyperlipidemia #12. Tobacco Abuse #13. Chronic COPD #14. CODE status: Patient HCPOA notes his daughter and son are his HCPOA and living will is currently in place. DNR-CCA, no intubation. Medications at Discharge Home Medications aspirin 81 mg tablet,delayed release 81 mg PO DAILY heart health 03/02/22 rosuvastatin 5 mg tablet (Crestor) 5 mg PO DAILY cholesterol 03/02/22 amlodipine 5 mg tablet 5 mg PO DAILY #30 tabs 02/28/23 cholecalciferol (vitamin D3) 25 mcg (1,000 unit) capsule 25 mcg PO DAILY 10/27/23 metoprolol tartrate 25 mg tablet 12.5 mg (1/2 x 25 mg) PO BID #90 tabs 03/22/24 acetaminophen 500 mg capsule 1,000 mg PO Q6H PRN pain 06/13/24 fluticasone fur. 200 mcg-umeclid 62.5 mcg-vilant 25 mcg inhalat.powder (Trelegy Ellipta) 1 inh inhalation DAILY PRN SOB 06/13/24 Hospital Course Operations None Procedures Blood transfusion, Colonoscopy and EGD Summary of Care Provided Minutes Spent on Discharge: 50 Hospital Course: The patient is a 74 y/o M w/ PMHx: COPD, Bladder Cancer s/p transurethral resection on chemotherapy and possibly radiation following with [facility] oncology, Vavular heart disease status post AVR, CAD status post CABG x 1, CKD stage III unclear subtype per GFR trending, HTN, HLD, Tobacco use, AAA s/p rupture s/p repair who presented to the [facility] ED on 11/07/2024 with significant bright red blood per rectum with his last chemotherapy noted 10/19/2024 in addition to ongoing radiation with last noted 10/22/2024 with significant bright red blood ongoing eventually becoming darker with severe significant ongoing bowel movements foul-smelling in nature with no associated abdominal pain nor any nausea or emesis prompting ED evaluation. Patient did note when he started to have copious bleeding in the ED he did have some mild abdominal cramping. He denies associated lightheadedness/dizziness/dyspnea/chest pain. He notes chronic dysuria and frequency. Workup in the ED included T96.1 Temporal, heart rate 79, BP 83/63, respiratory rate 18, 97% on room air with BP at 1900 decreasing down to 77/60 and then 78/55 with a MAP of 62 improving following PRBC with most recent vitals T97.6, heart rate 78, BP 03/02/1972, respiratory rate 16, 98% oxygenation, CBC with WC 10.8, hemoglobin initially 9.1 at 1555 with repeat at 1757 noted to be hemoglobin 7.8, platelet 229 with left shift, unremarkable coags, CMP with potassium 5.3 not noted to be hemolyzed, BUN/creatinine 47/2.09, GFR 33, glucose 139, lactic acid 2.2, hepatic profile not marked appearing, troponin 16, urine noted to be cloudy, urine protein 100, occult blood 50, negative nitrite, leukocyte esterase 500, urine RBCs 5-10, urine WBCs greater than 100 with 2+ urine bacteria, CTA abdomen and pelvis with and without contrast with no active hemorrhaging although patient with significant active bleed in the ED which had been profuse prompting emergent transition to endoscopy for colonoscopy with Dr. Floyd, also noted mild wall thickening and inflammatory changes involving the proximal duodenum, distal rectosigmoid colon suggestive of enterocolitis, marked wall thickening of the bladder with surrounding inflammatory fat stranding, similar mild left hydroureteronephrosis with evidence of a left urethritis/pyelitis, stable appearing irregular diffuse fusiform aneurysmal dilatation of the infrarenal abdominal aorta and bilateral common iliac arteries with eccentric noncalcified plaque/mural thrombus, chest x-ray with no acute cardiopulmonary findings however extensive pulmonary emphysema evident. In the ED patient administered 1 unit PRBC stat given hemorrhagic shock. Patient was evaluated in the endoscopy suite at [facility] on 11/07/2024 and at the time of evaluation, transfer to a tertiary hospital was felt to be in the patient's best interest due to significant lower GI bleed, hemorrhagic shock, high concern for friability of bowel given ongoing and very recent radiation with high risk for rebleeding. Patient had transitioned from the ED to the endoscopy lab for emergent endoscopy given his hemorrhagic shock thus transfer attempts were not initiated initially in the ED. Discussed case with Dr. Floyd who agreed that transfer even following endoscopy would be inpatient best interest in order to have IR capabilities if necessary and higher level of care with onsite supervisor enrobing team should patient decompensate again. Given the need for ongoing medical care, in the interim in the best interest of the patient, will proceed with admission to [facility] ICU following endoscopy and care will be provided here until tertiary facility has an available staffed bed. Patient underwent both upper and lower endoscopies with blood throughout upper and lower thus unclear if lower component as entire bowel upper and lower with blood, upper with noted bleeding duodenal crater bleeding lesions s/p heater probe and injection with possible Billroth II anatomical surgical presentation. Patient was transition from endoscopy to the intensive care unit in [facility] was recontacted and accepted patient to their ICU. The supervisor enrobing given situation with profuse bleeding during endoscopy noted ongoing although vital signs had stabilized felt patient's safest best interest for immediate air flight to be set up by [facility]. Once airflight was set up and arrive patient was transitioned from [facility] intensive unit care to the [facility] Flight team. Weight / BMI Weight Weight: 144 lb 2.917 oz Body Mass Index (BMI) 23.2 ABG / Lab / Microbiology Data 11/07/24 22:16 11/07/24 15:55 Laboratory: Laboratory Results - last 24 hr 11/07/24 15:55: WBC 10.8, RBC 3.01 L, Hgb 9.1 L, Hct 29.2 L, MCV 97.0 H, MCH 30.2, MCHC 31.2 L, RDW Std Deviation 55.2 H, RDW Coeff of Manjit 15.6 H, Plt Count 229, MPV 8.9, Immature Gran % (Auto) 0.700, Neut % (Auto) 76.0 H, Lymph % (Auto) 11.8 L, Noble % (Auto) 9.8, Eos % (Auto) 1.1, Baso % (Auto) 0.6, Absolute Neuts (auto) 8.2 H, Absolute Lymphs (auto) 1.27, Nucleated RBC % 0, Sodium 141, P otassium 5.3 H, Chloride 106, Carbon Dioxide 22.6, Anion Gap 12, BUN 47 H, C reatinine 2.09 H, Est GFR (MDRD) Non-Af 33 L, BUN/Creatinine Ratio 22.4 H, G lucose 139 H, Lactic Acid 2.2 H*, Calcium 8.3, Total Bilirubin 0.15, AST 14, ALT 9, Alkaline Phosphatase 68, Total Protein 5.7 L, Albumin 3.3 L, Globulin 2.4, Albumin/Globulin Ratio 1.4, Lipase 43 11/07/24 17:26: Urine Color Straw, Urine Clarity Cloudy, Urine pH 6.0, Ur Specific [place] 1.015, Urine Protein 100 H, Urine Glucose (UA) Normal, Urine Ketones Negative, Urine Occult Blood 50 H, Urine Nitrite Negative, Urine Bilirubin Negative, Urine Urobilinogen Normal, Ur Leukocyte Esterase 500 H, Urine RBC 5-10 SEEN, Urine WBC >100 SEEN, Ur Squamous Epith Cells 0-5 SEEN, Ur Transition Epith Cell 0-5 SEEN, Urine Bacteria 2+, Urine Mucus 0 SEEN 11/07/24 17:57: Hgb 7.8 L, Phosphorus 4.5, Magnesium 2.1, Troponin T High Sens 16 11/07/24 18:30: PT 14.5, INR 1.1, APTT 26.5 11/07/24 18:40: Blood Type A POSITIVE, Antibody Screen NEGATIVE, Crossmatch See Detail 11/07/24 18:40: Crossmatch See Detail 11/07/24 18:40: Crossmatch See Detail 11/07/24 20:15: WBC 8.5, RBC 3.51 L, Hgb 10.6 L, Hct 33.7 L, MCV 96.0 H, MCH 30.2, MCHC 31.5 L, RDW Std Deviation 53.2 H, RDW Coeff of Manjit 15.3 H, Plt Count 156, MPV 8.9, Immature Gran % (Auto) 0.900, Neut % (Auto) 80.9 H, Lymph % (Auto) 9.2 L, Noble % (Auto) 8.1, Eos % (Auto) 0.4, Baso % (Auto) 0.5, Absolute Neuts (auto) 6.9, Absolute Lymphs (auto) 0.78 L, Nucleated RBC % 0 11/07/24 22:16: Hgb 10.4 L, Hct 32.8 L Microbiology: Microbiology 11/07/24 15:45 Stool Stool Occult Blood (ASIF) - Final Occult Blood Positive Radiography Diagnostic Testing: Radiology Impression Abdomen/Pelvis CTA 11/07/24 15:42 IMPRESSION: 1. No CT evidence for active gastrointestinal hemorrhage. 2. Mild wall thickening and inflammatory changes involving the proximal duodenum, and distal rectosigmoid colon suggestive of enterocolitis. Nonspecific diarrheal illness with fluid in the colon. 3. Marked wall thickening of the bladder with surrounding inflammatory fat stranding, may be infectious/inflammatory or related to known neoplasm. Possibly treatment related change. 4. Similar mild left hydroureteronephrosis. Evidence of left ureteritis/pyelitis. 5. Stable appearance of irregular diffuse fusiform aneurysmal dilatation of the infrarenal abdominal aorta and bilateral common iliac arteries, with eccentric noncalcified plaque/mural thrombus. Reading Location: [id number] Chest X-Ray 11/07/24 18:53 IMPRESSION: No focal consolidation. Extensive pulmonary emphysema. Reading Location: [id number] D/C Instructions DC O2, CPAP, BIPAP Needs Home O2 Discharge instructions: No Meaningful Use Info Meaningful Use Meaningful Use Diagnoses (Choose all that apply): None applicable Discharge Plan Admission Primary Reason for Your Visit: Acute GI bleed (ulcerated crater lesion duodenum), Hemorrhagic shock Attending Provider: Suzanne Medley Primary Care Provider: Andrés Carrasco Consulting Providers: Derrell Fonseca; Kamlesh Floyd; [place]; Oxana Camarillo; iMnda Foreman; Chung Armstrong; Ritchie Juarez; Noe Suarez; Bernardo Zuñiga; Jatinder Mobley; Howie Araujo; Say Abraham; Namrata Little; Prakash Carr; Bubba Garcia; Jeffery House; Olya Meneses; Geetha Moran; Alexandrea Yap; Indira,Chris; Alec Delacruz; Andrei Paulson; Ruby,Juan M; Ricardo Juarez; Dian Gilbert; Liam Busch; Bowen Barrett; Dianelys Simon; Mckinley Griffin Instructions Print Language: Serbian Discharge Orders/Prescriptions Prescriptions: No Action amlodipine 5 mg tablet 5 mg PO DAILY Qty: 30 11RF aspirin 81 mg tablet,delayed release (DR/EC) 81 mg PO DAILY Patient Comments: STOP PER DR. MCCLENDON PRIOR TO PROCEDURE rosuvastatin [Crestor] 5 mg tablet 5 mg PO DAILY acetaminophen 500 mg capsule 1,000 mg PO Q6H PRN (Reason: pain) Trelegy Ellipta 200-62.5-25 mcg blister with device 1 inh inhalation DAILY PRN (Reason: SOB) cholecalciferol (vitamin D3) 25 mcg (1,000 unit) capsule 25 mcg PO DAILY metoprolol tartrate 25 mg tablet 12.5 mg PO BID Qty: 90 3RF Referrals / Follow Up: Andrés Carrasco MD [Primary Care Provider, Family Practice] Disposition Disposition (needs filled in before D/C Order can be placed): Home, Self Care Charges/Coding Multi Select Codes Visit Charges Observation E&M Codin Observ/hosp same date L3 (Discharged via air flight to [facility] to their ICU, admitted same day to stabilize until tertiary acceptance.)
--- NOTE | 2024-11-07 23:22 | NURSING ---
Patient loaded onto cot, left with [facility] transport team.
--- OUTSIDE RECORDS SUMMARY | 2024-11-09 | XMS RPT_ITS | CCD ---
Author Organization [facility] Care Team Providers Care Research Epidemiologist Name Role Phone Padmini Carrasco MD Primary Care Provider Dr. Ezekiel Carrasco Primary Care Provider [phone] Dr. Ezekiel Carrasco Referring Provider Dr. Raheem Farrar Attending Provider Padmini Carrasco MD Primary Care Provider Dr. Ezekiel Carrasco Primary Care Provider [phone] Dr. Ezekiel Carrasco Referring Provider Moris RESTAURANT CASHIER, RESTAURANT CASHIER-C Tc Larson Attending Provider Dr. Nhan Garland Emergency Provider Dr. Beatris Banks Attending Provider Dr. Beatris Banks Admit Provider Dr. Beatris Banks Other Provider Randal RESTAURANT CASHIER, RESTAURANT CASHIER-C Carmina Attending Provider [phone] Dr. Kwame Alex Attending Provider [phone] Raheem Farrar Attending Provider Biedenhartrung PA, PA Tonia Attending Provider [phone] Evelioedlior ACUNA, PA Tonia Other Provider Dr. Ezekiel Carrasco Primary Care Provider [phone] Dr. Nhan Garland Emergency Provider Dr. Beatris Banks Attending Provider Dr. Beatris Banks Admit Provider Dr. Beatris Banks Other Provider Dr. Ezekiel Carrasco Referring Provider Moris RESTAURANT CASHIER, RESTAURANT CASHIER-C Tc Larson Attending Provider Randal RESTAURANT CASHIER, RESTAURANT CASHIER-C Carmina Attending Provider [phone] Dr. Kwame Alex Attending Provider Gregory ACUNA, PA Tonia Referring Provider Dr. Raheem Farrar Attending Provider Gregory PA, PA Tonia Attending Provider Gregory ACUNA, PA Tonia Other Provider Randal RESTAURANT CASHIER, RESTAURANT CASHIER-C Carmina Referring Provider [phone] Randal SLAUGHTER, RESTAURANT CASHIER-C Carmina Other Provider Dr. Noe Suarez Attending Provider Dr. Bernardo Zuñiga Attending Provider Sundar ACUNA, PA Isela Bailon Attending Provider Dr. Ezekiel Carrasco Primary Care Provider KALPANA Jenkins Attending Provider KALPANA Jenkins Other Provider Dr. Ezekiel Carrasco Referring Provider Dr. Ezekiel Carrasco Primary Care Provider KALPANA Jenkins Attending Provider Gregory, PA Tonia Other Provider Dr. Ezekiel Carrasco Primary Care Provider Dr. Kwame Alex Attending Provider KALPANA Doyle Referring Provider Dr. Ezekiel Carrasco Referring Provider Randal SLAUGHTER, SUKHJINDER-C Carmina Attending Provider Benjamin SLAUGHTER, RESTAURANT CASHIER-C Farheen Attending Provider Dr. Ezekiel Carrasco Primary Care Provider [phone] Dr. Ezekiel Carrasco Referring Provider Randal RESTAURANT CASHIER, RESTAURANT CASHIER-C Carmina Attending Provider [phone] Benjamin RESTAURANT CASHIER, RESTAURANT CASHIER-C Farheen Attending Provider Dr. Raheem Farrar Attending Provider Luna CALLE, Dr. Bowen Primary Care Provider Eran CALLE, Dr. Camarillo Attending Provider Eran CALLE, Dr. Camarillo Referring Provider Eran CALLE, Dr. Camarillo Other Provider Luna CALLE, Dr. Bowen Referring Provider Randal RESTAURANT CASHIER-C, Carmina Attending Provider Randal RESTAURANT CASHIER-C, Carmina Referring Provider Luna CALLE, Dr. Bowen Attending Provider Dr. Jeffery Turpin DO Emergency Provider Luna CALLE, Dr. Bowen Primary Care Provider Luna CALLE, Dr. Bowen Referring Provider Dr. Jeffery Turpin DO Attending Provider Catrachito CALLE, Dr. Jose J Small Attending Provider Catrachito CALLE, Dr. Jose J Small Referring Provider Nito Jaramillo Attending Provider [phone] Luna CALLE, Dr. Bowen Primary Care Provider Randal RESTAURANT CASHIER-C, Carmina Attending Provider Catrachito CALLE, Dr. Jose J Small Admit Provider [phone] Padmini Carrasco MD Primary Care Provider Jose J Mcclendon MD Unavailable Vicente RN, Karen Carrasco MD, Dr. Bowen Primary Care Provider Luna CALLE, Dr. Bowen Referring Provider [phone] Benjamin RESTAURANT CASHIER-Quin, Farheen Attending Provider Abrahan CALLE, Stacy Ortega Unavailable Darren CLALE, Luigi Unavailable ABRAHAN, SATCY F Attending Unavailable PADMINI CARRASCO B Primary Care Unavailabl e ABRAHAN, STACY F Attending Unavailable RANDARRIN, CHRISTOPHER B Primary Care Unavailabl e ABRAHAN, STACY F Admitting Unavailable ABRAHAN, STACY F Attending Unavailable ABRAHAN, STACY F Referring Unavailable RANNEY, CHRISTOPHER B Primary Care Unavailabl e ABRAHAN, STACY F Referring Unavailable RANNEY, CHRISTOPHER B Primary Care Unavailabl e ABRAHAN, STACY F Referring Unavailable RANDARRIN, CHRISTOPHER B Primary Care Unavailabl e Riccardo MILLER, Matthew Unavailable Unavailable Tita HINSON, Lakeisha Irving Unavailable Antoni Covarrubias Unavailable Unavailsirena Carrasco MD, Dr. Bowen Primary Care Provider Luna CALLE, Dr. Bowen Referring Provider Catrachito CALLE, Dr. Jose J Small Attending Provider Catrachito CALLE, Dr. Jose J Small Referring Provider Dr. Padmini Carrasco MD Attending Provider Tita HINSON, Dr. Cruz Attending Provider [phone] Tita HINSON, Dr. Cruz Referring Provider Jose J Mcclendon Referring Unavailable Luna, Christivory Primary Care Unavailable Jose J Mcclendon Attending Unavailable Randarrin, Christopher Primary Care Unavailable Jeffery Turpin Attending Unavailable Randarrin, Christopher Primary Care Unavailable Carmina Tee Attending Unavailable Carmina Tee Referring Unavailable Evgeny Jacobo Attending Unavailable Randarrin, Christopher Primary Care Unavailable Marquise Barillas Referring Unavailable Marquise Barillas Referring Unavailable Randarrin, Christopher Primary Care Unavailable Marquise Barillas Attending Unavailable Marquise Barillas Consulting Unavailable Randarrin, Christopher Primary Care Unavailable Randarrin, Christjeffreyer Referring Unavailable Benjamin SLAUGHTER, Farheen Attending Unavailable Marquise Barillas Attending Unavailable Ranney, Christopher Primary Care Unavailable Ranney, Christopher Referring Unavailable Ranney, [place] Primary Care Unavailable Ranney, Christopher Referring Unavailable Randarrin, Zacer Attending Unavailable Marquise Barillas Attending Unavailable [place] Unavailable Marquise Barillas Referring Unavailable [place], [place] Primary Care Unavailable Lakiesha Rivers Referring Unavailable Lakeisha Rivers Attending Unavailable [place], [facility] Primary Care Unavailable Marquise Barillas Attending Unavailable Marquise Barillas Referring Unavailable CatrachitoJose J Referring Unavailable Catrachito, Jose J Small Attending Unavailable [place], [place] Primary Care Unavailable Catrachito, Austin Admitting Unavailable [place], Zacer Attending Unavailable [place], [place] Primary Care Unavailable Ranney, Zacer Referring Unavailable Catrachito, Austin Referring Unavailable Catrachito, Jose J Small Attending Unavailable [place], [place] Primary Care Unavailable Catrachito, Jose J Small Referring Unavailable Catrachito, Jose J Small Attending Unavailable [facility], [place] Primary Care Unavailable Nito Rosales Attending Unavailable [facility], [place] Primary Care Unavailable [place], Christjeffreyer Referring Unavailable [place], [place] Primary Care Unavailable Ranney, Zacer Referring Unavailable Marquise Barillas Attending Unavailable [place], [place] Primary Care Unavailable Ranney, Christjeffreyer Referring Unavailable Marquise Barillas Attending Unavailable [place], [place] Primary Care Unavailable [place], Christopher Referring Unavailable Carmina Tee Attending Unavailable [place], [place] Primary Care Unavailable Marquise Barillas Attending Unavailable Marquise Barillas Consulting Unavailable Marquise Barillas Referring Unavailable [facility] Primary Care Unavailabl e STACY GAUTHIER Referring Unavailable RANOMAHA, [place] B Primary Care Unavailabl e LAKEISHA RIVERS Referring Unavailable LUNA[facility] Primary Care Unavailabl e LU[facility], [facility] Primary Care Unavailabl e RANDARRIN, [facility] Primary Care Unavailabl e RANDARRIN, [place] B Primary Care Unavailabl e LUIGI BANKS Attending Unavailable LAKEISHA RIVERS Referring Unavailable LUNA, ZACER B Primary Care Unavailabl e RANDARRIN, [facility] Primary Care Unavailabl e LUNA, [facility] Primary Care Unavailabl e LUIGI BANKS Attending Unavailable RANNEY, CHRISTOPHER B Primary Care Unavailabl e STACY GAUTHIER Referring Unavailable LAKEISHA RIVERS Attending Unavailable PADMINI CARRASCO Primary Care Unavailabl e SELF Referring Unavailable PADMINI CARRASCO Primary Care Unavailabl e LUNA RUSTIVORY Howell Primary Care Unavailabl e LAKEISHA RIVERS Referring Unavailable LUNA RUSTJEFFREY Lynda Primary Care Unavailabl e LUNA RUSTJEFFREY Lynda Primary Care Unavailabl e LUNA RUSTJEFFREY Lynda Primary Care Unavailabl e LUNA [place] Lynda Primary Care Unavailabl e LUIGI BANKS Attending Unavailable LUNA RUSTJEFFREY Lynda Primary Care Unavailabl e LUNA RUSTJEFFREY Lynda Primary Care Unavailabl e LUNA RUSTJEFFREY Lynda Primary Care Unavailabl e LUIGI BANKS Attending Unavailable PADMINI CARRASCO Primary Care Unavailabl e LUNA RUSTJEFFREY Lynda Primary Care Unavailabl e LUNA RUSTJEFFREY Lynda Primary Care Unavailabl e LUIGI BANKS Referring Unavailable LUNA RUSTIVORY Howell Primary Care Unavailabl e LUNA RUSTJEFFREY Lynda Primary Care Unavailabl e LUNA RUSTJEFFREY Lynda Primary Care Unavailabl e LUNA [place] Lynda Primary Care Unavailabl e LUNA [place] Lynda Primary Care Unavailabl e LUNA RUSTJEFFREY Lynda Primary Care Unavailabl e LUNA RUSTJEFFREY Lynda Primary Care Unavailabl e LUNA RUSTJEFFREY Lynda Primary Care Unavailabl e LUNA [place] Lynda Primary Care Unavailabl e LUNA RUSTJEFFREY Lynda Primary Care Unavailabl e LAKEISHA RIVERS Referring Unavailable PADMINI CARRASCO Primary Care Unavailabl e LUIGI BANKS Attending Unavailable PADMINI CARRASCO Primary Care Unavailabl e JOSE J MCCLENDON Referring Unavailable LUNA RUSTJEFFREY Lynda Primary Care Unavailabl e CHRISTIANSON, CODEY Attending Unavailable LUNA RUSTJEFFREY Lynda Primary Care Unavailabl e CHRISTIANSON, CODEY Referring Unavailable PADMINI CARRASCO Primary Care Unavailabl e CHRISTIANSON, CODEY Referring Unavailable LUNA RUSTJEFFREY Lynda Primary Care Unavailabl e LUNA RUSTJEFFREY Lynda Primary Care Unavailabl e LUNA RUSTJEFFREY Lynda Primary Care Unavailabl e LUIGI BANKS Attending Unavailable PADMINI CARRASCO Primary Care Unavailabl e LUNA RUSTJEFFREY Lynda Primary Care Unavailabl e LUNA RUSTOPHER B Primary Care Unavailabl e PADMINI CARRASCO Primary Care Unavailabl e BOB OTERO Attending Unavailable LUIGI BANKS Attending Unavailable PADMINI CARRASCO Primary Care Unavailabl PADMINI Crystal Primary Care Unavailabl e CODEY CHRISTIANSON Referring Unavailable PADMINI CARRASCO Primary Care Unavailabl e LAKEISHA RIVERS Referring Unavailable PADMINI CARRASCO Primary Care Unavailabl e Medications Current Medications [...] on above: Take 2 tablets by mo [facility] every 4 hours. amLODIPine 5 mg oral tablet (20 sources) Dihydropyridine Calcium Channel Jami Start: 4 take 1 tablet by mouth once daily Amlodipine 5 mg tablet Active 5 mg PO DAILY 30 February 28, 2023 1:00am aspirin 81 mg chewable tablet (20 sources) Platelet Aggregation Inhibitor, Nonsteroidal Anti-inflammatory Drug Start: 0 take 1 tablet by mouth once daily aspirin 81 mg chewable tablet Take 1 tablet by mouth once daily. 30 tablet 02/21/2019 Active Start: 12-06-2018 End: 03-02-2022 take 1 tablet by mouth once daily Aspirin 81 mg tablet,delayed release (DR/EC) Active 81 mg PO DAILY March 02, 2022 1:09pm heart health Start: 05-14-2018 End: 11-01-2018 take 1 tablet [...] 2023 8:28am supplement take 1 capsule by [facility] once daily cholecalciferol, vitamin D3, (VITAMIN D-3) 10 mcg (400 unit) cap Take 400 Units by mouth once daily. Active Ntqykqzzmew-Vskclhvpo-Wikgrg er (20 sources) Start: 06-13-2024 Ygvtvpvmvfg-Mmviobsmg-Lvnajn er (Trelegy Ellipta) 200-62.5-25 mcg blister with device Active 1 NMA INHALATION DAILY as needed for SOB June 13, 2024 12:00am Start: 03-23-2024 End: 06-13-2024 Igvsnjdtrye-Nsdmimwyg-Oqkkih er (Trelegy Ellipta) 200-62.5-25 mcg blister with device Discontinued 1 NMA INHALATION DAILY 60 March 23, 2024 1:57pm June 13, 2024 10:19am Start: 03-23-2024 End: 06-13-2024 Chhbqebyrfc-Wglcairzq-Ddojft er (Trelegy Ellipta) 200-62.5-25 mcg blister with device Discontinued 1 NMA INHALATION DAILY March 23, 2024 1:57pm June 13, 2024 10:19am Start: 03-23-2024 Fluticasone-Um eclidin-Vilanter (Trelegy Ellipta) 200-62.5-25 mcg blister with device Active 1 NMA INHALATION DAILY March 23, 2024 1:57pm Start: 01-27-2023 End: 03-23-2024 Zjgugenrzeu-Fbcvdtbvx-Momiab er (Trelegy Ellipta) 200-62.5-25 mcg blister with device Discontinued 1 NMA INHALATION DAILY 60 January 27, 2023 1:00am March 23, 2024 1:58pm Start: 01-27-2023 End: 03-23-2024 Kpkbozqpplo-Oicqyryve-Cvrtoi er (Trelegy Ellipta) 200-62.5-25 mcg blister with device Discontinued 1 NMA INHALATION DAILY January 27, 2023 1:00am March 23, 2024 1:58pm Start: 01-27-2023 Fluticasone-Um eclidin-Vilanter (Trelegy Ellipta) 200-62.5-25 mcg blister with device Active 1 INH INHALATION DAILY January 27, 2023 1:00am Start: 01-27-2023 Fluticasone-Um eclidin-Vilanter (Trelegy Ellipta) 200-62.5-25 mcg blister with device Active 1 INH INHALATION DAILY January 27, 2023 12:00am pktpdwozkff-xzihcxmad-qlmfjr er (TRELEGY ELLIPTA) 200-62.5-25 mcg inhalation powder (20 sources) take 1 puff(s) by inhalation once daily yzqeixdmwob-flukxfypb-kqndjpqu (TRELEGY ELLIPTA) 200-62.5-25 mcg inhalation powder Inhale [...] Take 10 mg by mouth once daily. phenazopyridine hydrochloride 100 mg oral tablet (20 sources) Start: End: take 1 tablet by [...] 5 mg by mouth o nce daily. sulfamethoxazole 800 mg / trimethoprim 160 mg oral tablet (6 sources) Dihydrofolate Reductase Inhibitor Antibacterial, Sulfonamide Antimicrobial Start: 08-29-2024 End: 09-05-2024 Sulfamethoxazole- Trimethoprim 800-160 mg tablet Active 1 {tbl} PO TWICE A DAY August 30, 2024 12:00am traMADol hydrochloride 50 mg oral tablet (20 sources) Opioid Agonist Start: 09-25-2024 End: 10-09-2024 take 1 tablet by mouth every twelve hours as needed for pain traMADol (ULTRAM) 50 mg tablet Indications: Malignant neoplasm of overlapping sites of bladder (HCC) , Malignant neoplasm of urinary bladder, unspecified site (HCC) Take 1 tablet by mouth every 12 hours as needed for pain for up to 7 days. 14 tablet 09/25/2024 10/09/2024 Active Start: 09-12-2024 End: 09-19-2024 take 1 tablet [...] 4:29pm calcium carbonate 1250 mg oral tablet (18 sources) Start: 10-27-2023 End: 06-13-2024 take 1 [...] 2023 8:28am cephalexin 500 mg oral capsule (7 sources) Cephalosporin Antibacterial Start: 05-17-2024 End: 06-13-2024 [...] 150 MG PO THREE TIMES A DAY 21 7 March 29, 2022 1:00am March 30, 2022 9:32am Take with 300mg for a total of 450mg PO TID collagenase 0.25 unt/mg topical ointment (20 sources) Collagen-specific Enzyme Start: 04-12-2022 End: 02-28-2023 [...] take 1 capsule by mouth twice daily Docusate Sodium (Colace) 100 mg capsule Discontinued 100 mg PO TWICE A DAY January 06, 2022 1:00am March 30, 2022 9:33am constipation Comment on above: Take 1 capsule by [facility] twice daily. enteric contrast (will be provided [...] Active ferrous sulfate 325 mg oral tablet (10 sources) Start: 02-28-2023 End: 10-24-2023 take 1 tablet by mouth once daily Ferrous Sulfate 325 mg (65 mg iron) tablet Discontinued 325 mg PO DAILY February 28, 2023 1:00am October 24, 2023 8:28am fluorouracil (ADRUCIL) 4,500 mg in NaCl 0.9% 102 mL in empty bag (2 sources) Start: 10-15-2024 End: 10-15-2024 4,500 mg (2,500 mg/m2 1.8 m2 Treatment Plan BSA from Recorded weight), INTRAVENOUS, at 1.1 mL/hr, Administer over 96 Hours, ONCE, 1 dose, On Tue10/15/24 at 1000, Expires: (refrigerated) Hazardous Chemotherapy Drug: Use appropriate PPE. Protect from Light. Start: 09-24-2024 End: 08-18-2025 4,500 mg (2,500 mg/m2 1.8 m2 Treatment Plan BSA from Recorded weight), INTRAVENOUS, at 1.1 mL/hr, Administer over 96 Hours, ONCE, 1 dose, On Tue09/24/24 at 1130, Expires: 09/28/24 @ 1115 Hazardous Chemotherapy Drug: Use appropriate PPE. Protect from Light. fluticasone propionate 0.05 mg/actuat metered dose nasal [...] 2019 11:40am ibuprofen 600 mg oral tablet (5 sources) Nonsteroidal Anti-inflammatory Drug Start: 06-27-2024 End: 08-30-2024 take 1 tablet by mouth every six hours as needed for pain Ibuprofen 600 mg tablet Discontinued 600 mg PO EVERY 6 HOURS as needed for pain June 27, 2024 12:00am August 30, 2024 [...] contrast administration guidelines link. 1 Each 10/05/2019 Suspended Start: 10-05-2019 inject 1 dose [...] administration guidelines link. 1 Each 10/05/2019 Active Comment on above: CT Cardiac [...] tablet Discontinued 750 mg PO Q48H 5 March 04, 2022 1:00am March 29, 2022 [...] Discontinued 12.5 mg PO TWICE A DAY February 09, 2024 11:43am March 22, 2024 11:19am Start: 01-14-2023 take 12.5 mg by mout h twice daily Metoprolol Tartrate Active 12.5 MG PO TWICE A DAY January 14, 2023 1:00am Start: 03-14-2019 End: 03-30-2022 Metoprolol Tartrate 25 mg ta blet Discontinued 12.5 mg PO TWICE A DAY October 16, 2021 [...] 0.5 tablets by mouth every 12 hours. mitoMYcin 20 mg injection (1 source) Alkylating Drug Start: 09-24-2024 End: 09-24-2024 16.2 mg (9 mg/m2 1.8 m2 Treatment Plan BSA from Recorded weight), INTRAVENOUS, ONCE, 1 dose, On Tue09/24/24 at 1200, - SYRINGE - Expires: 09/26/24 @ 1135 Hazardous Chemotherapy Drug: Use appropriate PPE. Antineoplastic Vesicant. Protect from light. Start: 09-24-2024 End: 09-24-2024 16.2 mg (9 mg/m2 1.8 m2 Kim tment Plan BSA from Recorded weight), INTRAVENOUS, ONCE, 1 dose, On Tue09/24/24 at 1200, - SYRINGE - Expires: 09/26/24 @ 1135 Hazardous Chemotherapy Drug: Use appropriate PPE. Antineoplastic Vesicant. Protect from light. Multivitamin preparation (20 sources) Start: 03-14-2019 End: 09-12-2019 take 1 tablet by mouth once daily in the morning Multivitamin Discontinued 1 TABLET PO EVERY MORNING March 14, 2019 12:00am September 12, 2019 10:41am Start: 03-14-2019 End: 09-12-2019 take 1 tablet by mouth once daily in the morning Multivitamin Discontinued 1 TABLET PO EVERY MORNING March 14, 2019 1:00am September 12, 2019 11:41am Multivitamin tablet (8 sources) Start: 03-14-2019 End: 09-12-2019 Multivitamin tablet Discontinued 1 {tbl} PO EVERY MORNING March 14, 2019 1:00am September 12, 2019 11:41am Tiotropium-Olodaterol (14 sources) Anticholinergic, beta2-Adrenergic Agonist Start: 08-24-2022 End: [...] by mouth once daily Omeprazole 40 mg capsule,delayed release(DR/EC) Discontinued 40 mg PO DAILY November 17, 2018 4:29pm March 19, 2020 10:50am Start: 07-09-2018 End: 11-01-2018 take 1 capsule by mouth once daily Omeprazole 20 MG capsule Discontinued 20 mg PO DAILY 30 0 July 09, 2018 12:00am November 01, 2018 8:23am Comment on above: Take 1 capsule by mo [facility] once daily. 2 ml ondansetron 2 mg/ml injection (20 sources) Serotonin-3 Receptor Antagonist Start: 10-15-2024 End: 10-15-2024 8 mg, INTRAVENOUS, ONCE, 1 dose, On Tue10/15/24 at 0930 Start: 09-24-2024 End: 09-24-2024 8 mg, INTRAVENOUS, ONCE, 1 d ose, On Tue09/24/24 at 1100 Start: 09-12-2024 take 1 tablet by [facility] every eight hours as needed for nausea and vomiting ondansetron (ZOFRAN) 8 mg tablet Indications: Malignant neoplasm of overlapping sites of bladder (HCC) , Malignant neoplasm of urinary bladder, unspecified site (HCC) Take 1 tablet by mouth every 8 hours as needed (For chemotherapy induced nausea and vomiting.). 30 tablet 2 09/12/2024 Active oxyCODONE hydrochloride 5 mg oral tablet (20 sources) Opioid Agonist Start: 01-18-2024 End: 02-02-2024 take 5-10 mg by mouth every four [...] release Discontinued 20 meq PO DAILY 2 March 23, 2022 1:00am March 29, 2022 5:46pm predniSONE 10 mg oral tablet (20 sources) Start: 2022 End: 2022 Prednisone 10 mg tablet Discontinued 10 mg PO DAILY 40 0 March 04, 2022 1:00am March 29, 2022 3:53pm 4 tablets x 4 days, 3 tablets x 4 days, 2 tablets x 4 days, 1 tablet x 4 days 1000 ml sodium chloride 9 mg/ml injection (1 source) Start: 2024 End: 2024 1,000 mL, INTRAVENOUS, at 500 mL/hr, Administer over 2 Hours, ONCE, 1 dose, On Mayra 09/27/24 at 1030 spironolactone 25 mg oral tablet (20 sources) Aldosterone Antagonist Start: 2022 End: 2022 take 1 tablet by mouth once daily Spironolactone 25 mg tablet Discontinued 25 mg PO DAILY 90 3 March 19, 2022 1:00am May 17, 2022 2:41pm tamsulosin hydrochloride 0.4 mg oral capsule (7 sources) alpha-Adrenergic Jami Start: 2024 End: 2024 take 1 capsule by mouth once daily Tamsulosin (Flomax) 0.4 mg capsule Discontinued 0.4 mg PO DAILY 14 14 0 May 17, 2024 12:00am June 13, 2024 10:18am Tiotropium [place] (20 sources) Anticholinergic Start: 2018 End: 2018 take 2.5 ug by inhalation once daily Tiotropium [place] (Spiriva Respimat) 2.5 mcg/actuation mist Discontinued 2 NMA INHALATION DAILY November 17, 2018 12:00am November 22, 2018 10:40am Start: 11-17-2018 End: 11-22-2018 take 1 puff(s) by inhalation once daily Tiotropium [place] (Spiriva Respimat) 2.5 mcg/actuation mist Discontinued 2 PUFF INHALATION DAILY November 16, 2018 11:00pm November 22, 2018 9:40am Start: 11-17-2018 End: 11-22-2018 take 1 puff(s) by inhalation once daily Tiotropium [place] (Spiriva Respimat) 2.5 mcg/actuation mist Discontinued 2 PUFF INHALATION DAILY November 17, 2018 12:00am November 22, 2018 10:40am Problems Active Problems Problem Classification Problem Date Documented Da te Episodic/Chronic Acute and unspecified renal failure (5 sources) Acute renal failure syndrome; Translations: [Acute kidney failure, unspecified] Onset: 5 09-06-2024 Episodic Aortic; peripheral; and visceral artery aneurysms (20 sources) Abdominal aortic aneurysm without rupture; Translations: [Abdominal aortic aneurysm, without rupture] Onset: 3 Resolved: 3 02-20-2019 Chronic Cancer of bladder (20 sources) Malignant tumor of urinary bladder; Translations: [Malignant neoplasm of bladder, unspecified] Onset: 5 07-31-2024 Chronic Cancer of prostate (2 sources) Malignant tumor of prostate; Translations: [Malignant neoplasm of prostate] Onset: 5 10-12-2024 Chronic Chronic kidney disease (20 sources) Chronic [...] Coronary atherosclerosis; Translations: [Atherosclerotic heart disease of [place] coronary artery with other forms of angina pectoris] Onset: 9 02-20-2019 Chronic Comment on above: CABG x 1: SVG-RCA 02/12/2019; Diabetes mellitus with complications (1 source) Type 2 diabetes mellitus with diabetic chronic kidney disease; Translations: [Type 2 diabetes mellitus with diabetic chronic kidney disease] Onset: 5 Chronic Diabetes mellitus without complication (20 sources) Type 2 diabetes mellitus; Translations: [Type [...] hemorrhage or perforation] Onset: 2 12-28-2021 Chronic Genitourinary symptoms and ill-defined conditions (20 sources) Blood in urine; Translations: [Hematuria, unspecified] Onset: 3 09-07-2012 Episodic Heart valve disorders (20 sources) Aortic valve [...] Translations: [Other hydronephrosis] Onset: 5 Episodic Other diseases of kidney and ureters (1 source) Hydroureter; Translations: [Hydroureter on left] Onset: 5 Episodic Other gastrointestinal disorders (1 [...] Translations: [Edema] 03-23-2022 Episodic Residual codes; unclassified (13 sources) History of repair of aneurysm of [...] of clinical summary] Onset: 0 02-20-2019 Unclassified (2 sources) Status post abdominal aortic aneurysm (AAA) repair Unclassified (2 sources) Z98.890 - Other specified postprocedural states,Z86.79 - Personal history of other diseases of the circulatory system,I71.4 - Abdominal aortic aneurysm, without rupture Unclassified (1 source) Radiotherapy On-treatment Visit Onset: 5 Urinary tract infections (7 sources) Acute hemorrhagic cystitis; Translations: [Acute cystitis [...] unspecified] Onset: 02-14-2019 Resolved: 02-15-2019 02-15-2019 Chronic Coronary atherosclerosis and other heart disease (14 sources) Presence of aortocoronary bypass graft; Translations: [Aortocoronary bypass status] Onset: 02-12-2019 Episodic Deficiency and other anemia (20 sources) Anemia; Translations: [Anemia, unspecified] Onset: 02-14-2019 Resolved: 02-15-2019 09-12-2019 Episodic Diabetes mellitus without complication (20 sources) Metabolic stress hyperglycemia; Translations: [Hyperglycemia, unspecified] Onset: 02-12-2019 Resolved: 12-30-2021 12-30-2021 Episodic Fluid and electrolyte disorders (20 sources) Hypervolemia; Translations: [Fluid overload, unspecified] Onset: 02-14-2019 02-20-2019 Episodic Immunizations and screening for infectious disease [...] Test Name Value Interpretation Reference Range Facility [facility] 10-29-2024 CNPN Telephone (RADTWS) ABELARDO IVORY ([id number]) 1950 M Date Time Provider Department 10/29/24 LUIGI BANKS During your visit today, we recorded the following information about you: Unruly Diaz RN 10/29/2024 12:11 PM Signed Patient's UA came back positive for a UTI. I attempted to call pt to notify him of this and had to leave a message. Dr Banks has sent in a prescription for an antibiotic to [facility]. Unruly Diaz, ANGELA 10/29/2024 1:09 PM Signed Pt returned call and transfer to sc was unsuccessful. I called pt and left him another voicemail with my name and the office number to call in if he has further questions. Unruly Diaz RN 10/29/2024 1:13 PM Signed Pt returned phone call and below information was given to patient. He will fruit or nut picker the prescription and get started on the antibiotic today. Allergies As of Date: 10/29/2024 (No Known Allergies) Date Reviewed: 10/16/2024 Reviewed by: Nighat Hines RN - Fully Assessed Reason for Visit: Results [95] Prescriptions as of 10/29/2024 - nitrofurantoin monohydrate and macrocrystal (MACROBID) 100 mg capsule Take 1 capsule by mouth two times a day with meals for 7 days. - ondansetron (ZOFRAN) 8 mg tablet Take 1 tablet by mouth every 8 hours as needed (For chemotherapy induced nausea and vomiting.). - phenazopyridine (PYRIDIUM) 100 mg tablet Take 100 mg by mouth three times a day. - cholecalciferol, vitamin D3, (VITAMIN D-3) 10 mcg (400 unit) cap Take 400 Units by mouth once daily. - amLODIPine (NORVASC) 5 mg tablet Take 5 mg by mouth once daily. - pestiylfzai-ohwbttbro-v ilanter (TRELEGY ELLIPTA) 200-62.5-25 mcg inhalation powder [...] 12 hours. Problem List As Of Date 10/29/2024 Noted Resolved CONTUSION OF FOREARM [S50.10XA] 08/09/2005 [...] [C6*09/05/2024 Encounter Status:Closed by UNRULY DIAZ on 10/29/24 Normal [facility] Bacteria Ur Culton 5 Bacteria identified Cx Nom (U) ORGANISM ID: 1 10,000 -<50,000 CFU/ml Enterococcus faecalis Cephalosporins, clindamycin, and TMP-SMX are not effective for the treatment of enterococcal infections. ORGANISM ID: 1 (ENTEROCOCCUS FAECALIS) ANTIBIOTIC INTERPRETATION ASIF STATUS REFERENCE RANGE Ampicillin S <=2 F Susceptible <=8 , Resistant >8 Vancomycin S 1 F Susceptible <=4 , Intermediate >4 , Resistant >16 Nitrofurantoin S <=16 F Susceptible <=32 , Intermediate >32 , Resistant >64 Abnormal [facility] Comment on above: Performed By: #### 6 30-4, 05861-5 ####[facility] LABCLIA [id number] [address] OF [facility] Ale 10-26-2024 CNPN Telephone ([employer]) ABELARDO IVORY ([id number]) 1950 M Date Time Provider Department 10/26/24 LUIGI BANKS During your visit today, we recorded the following information about you: Nighat Hines, ANGELA 10/26/2024 12:53 PM Signed Pt. Called this nurse having c/o a stomach ache and diarrhea that started yesterday afternoon. He states that right after he eats and within 5 to 6 minutes he's having diarrhea. Also having c/o painful urination that started yesterday. He states his urine is light clear yellow with no odor. Reports use of tramadol 50mg in the past for this pain that Dr. Rivers prescribed. Pt. Had no issues during radiation. Dr. Banks notified of pt. Concerns. This nurse called pt. To inform him per Dr. Banks that symptoms sound like a virus, do not use imodium, and increase fluids. Dr. Banks put in orders for UA CANDS. Pt. Verbalized understanding and stated he will provide lab with urine sample some time this afternoon. Allergies As of Date: 10/26/2024 (No Known Allergies) Date Reviewed: 10/16/2024 Reviewed by: Nighat Hines, ANGELA - Fully Assessed Prescriptions as of 10/26/2024 - ondansetron (ZOFRAN) 8 mg tablet Take 1 tablet by mouth every 8 hours as needed (For chemotherapy induced nausea and vomiting.). - phenazopyridine (PYRIDIUM) 100 mg tablet Take 100 mg by mouth three times a day. - cholecalciferol, vitamin D3, (VITAMIN D-3) 10 mcg (400 unit) cap Take 400 Units by mouth once daily. - amLODIPine (NORVASC) 5 mg tablet Take 5 mg by mouth once daily. - iufrptyvpcv-szlalhddi-p ilanter (TRELEGY ELLIPTA) 200-62.5-25 mcg inhalation powder [...] 12 hours. Problem List As Of Date 10/26/2024 Noted Resolved CONTUSION OF FOREARM [S50.10XA] 08/09/2005 [...] urinary bladder (HCC) [C6*09/05/2024 Encounter Status:Closed by NIGHAT HINES on 10/26/24 Normal [facility] Urinalysis complete panel (U )on 10-26-2024 Bacteria LM.HPF (Urine sed) [#/Area] Negative Normal Negative [facility] Comment on above: Order Comment: Speci men Type: URINE SPECIMENOrdering Facility: [facility] Address: [address] [place] [address] [place] [address] Performed By: #### 6 30-4, 19524-0 ####[facility] LABCLIA [id number] [facility] [place] [address] [place] Bilirubin Ql (U) Negative Normal Negative [facility] Comment on above: Order Comment: Speci men Type: URINE SPECIMENOrdering Facility: [facility] Address: [facility] [place] [address] Performed By: #### 6 30-4, 02072-6 ####[facility] LABCLIA [id number] [address] [place] [address] [place] Clarity (Unsp spec) Turbid Abnormal Clear [facility] Comment on above: Order Comment: Speci men Type: URINE SPECIMENOrdering Facility: [facility] Address: [address] [place] [address] Performed By: #### 6 30-4, 05270-1 ####[facility] LABCLIA [id number] [address], [facility] [place] Color (U) Yellow Normal Yellow [facility] Comment on above: Order Comment: Speci men Type: URINE SPECIMENOrdering Facility: [facility] Address: [address] [place] [address] Performed By: #### 6 30-4, 72639-1 ####[facility] LABCLIA [id number] [place] [id number] [place] Epithelial cells LM.HPF (Urine sed) [#/Area] None Seen Normal [facility] Comment on above: Order Comment: Speci men Type: URINE SPECIMENOrdering Facility: [facility] Address: [address] [place] [address] Performed By: #### 6 30-4, 03361-6 ####[facility] LABCLIA [id number] [place] [id number] [place] Glucose Test strip (U) [Mass/Vol] Negative Normal Negative [facility] Comment on above: Order Comment: Speci men Type: URINE SPECIMENOrdering Facility: [facility] Address: [address] [place] [address] Performed By: #### 6 30-4, 37301-9 ####[facility] LABCLIA [id number] [address] [place] [address] [place] Hemoglobin Ql (U) 2+ Abnormal Negative [facility] Comment on above: Order Comment: Speci men Type: URINE SPECIMENOrdering Facility: [facility] Address: [address] [place] [address] Performed By: #### 6 30-4, 09964-1 ####[facility] LABCLIA [id number] [address] [place] [address] [place] Hyaline casts (Urine sed) [#/Area] 1-3 /LPF Abnormal 0 /LPF [facility] Comment on above: Order Comment: Speci men Type: URINE SPECIMENOrdering Facility: [facility] Address: [address] [place] [address] Performed By: #### 6 30-4, 97554-8 ####[facility] LABCLIA [id number] [address], [place] [address] [place] Ketones Ql (U) Negative Normal Negative [facility] Comment on above: Order Comment: Speci men Type: URINE SPECIMENOrdering Facility: [facility] Address: [address] [place] [address] Performed By: #### 6 30-4, 25179-9 ####[facility] LABCLIA [id number] [address] [place] [address] [place] Leukocyte esterase Test strip Ql (U) 2+ Abnormal Negative [facility] Comment on above: Order Comment: Speci men Type: URINE SPECIMENOrdering Facility: [facility] Address: [address] [place], [place] [id number] Performed By: #### 6 30-4, 73684-3 ####[facility] LABCLIA [id number] [address] [place] [address] [place] Nitrite Ql (U) Negative Normal Negative [facility] Comment on above: Order Comment: Speci men Type: URINE SPECIMENOrdering Facility: [facility] Address: [address] [place] [address] Performed By: #### 6 30-4, 72165-8 ####[facility] LABIA [id number] [place] [address] [place] pH (U) 6.5 [pH] Normal 5.0-8.0 [facility] Comment on above: Order Comment: Speci men Type: URINE SPECIMENOrdering Facility: [facility] Address: [address] [place] [address] Performed By: #### 6 30-4, 52833-9 ####[facility] LABIA [id number] [place] [address] [place] Protein (U) [Mass/Vol] 3+ Abnormal Negative [facility] Comment on above: Order Comment: Speci men Type: URINE SPECIMENOrdering Facility: [facility] Address: [address] [place] [address] Performed By: #### 6 30-4, 15697-1 ####[facility] LABIA [id number] [place] [address] [place] RBC LM.HPF (Urine sed) [#/Area] /[HPF] Abnormal 0-2 /HPF [facility] Comment on above: Order Comment: Speci men Type: URINE SPECIMENOrdering Facility: [facility] Address: [address] [place] [address] Performed By: #### 6 30-4, 45585-1 ####[facility] LABIA [id number] [place] [id number] [place] Specific gravity (U) [Rel density] 1.014 Normal 1.005-1.030 [facility] Comment on above: Order Comment: Speci men Type: URINE SPECIMENOrdering Facility: [facility] Address: [address] [place] [address] Performed By: #### 6 30-4, 44504-5 ####[facility] LABIA [id number] [place] [id number] [place] Urobilinogen Ql (U) 0.2 EU/dL Normal 0.2-1.0 EU/dL [facility] Comment on above: Order Comment: Speci men Type: URINE SPECIMENOrdering Facility: [facility] Address: [address] [place] [address] Performed By: #### 6 30-4, 73210-7 ####[facility] LABIA [id number] [place] [id number] [place] WBC LM.HPF (Urine sed) [#/Area] /[HPF] Abnormal 0-5 /HPF [facility] Comment on above: Order Comment: Speci men Type: URINE SPECIMENOrdering Facility: [facility] Address: [address] [place] [address] Performed By: #### 6 30-4, 21371-9 ####[facility] LABIA [id number] [place] [id number] [place] CNOVon 10-16-2024 CNOV Office Visit (RADTWS ) ABELARDO IVORY ([id number]) 1950 M Date Time Provider Department 10/16/24 10:15 AM LUIGI BANKS RADTWS During your visit today, we recorded the following information about you: Temperature Pulse Respiration Blood pressure 98.4 degrees 60/minute 16/minute 115/69 Luigi Banks MD 10/16/2024 10:15 AM Signed Radiation Oncology - On Treatment Review (OTR) Note PATIENT NAME: Abelardo Ivory PATIENT DIAGNOSIS: Clinical stage II, cT2 cN0, 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 COURSE: definitive and concurrent chemotherapy (Mitomycin 5-FU) AREA TREATED: Bladder CURRENT DOSE: 4400 cGy in 16 fx PLANNED DOSE: 5500 cGy in 20 fx SUBJECTIVE: He is doing well without any specific new complaints related to radiation treatment. Bladder pain resolved now. EXAM: KPS: 90 General Appearance: Alert and oriented. No acute distress. IMAGING/LAB RESULTS: CBC today reviewed. Platelet count 55K. Treatment chart checked: Yes Patient treatment site reviewed and verified:Yes CBCTs reviewed and current:Yes Medications started: None ASSESSMENT/PLAN: Clinically stable. Treatment-related side effects within expected parameters. Continue radiation treatment as planned. MD Parveen Scanlon Kayla, RN 10/16/2024 10:15 AM Signed Radiation Therapy - Nursing Note (OTV) PATIENT NAME: Abelardo Ivory PATIENT October 16, 2024 [facility] FACILITY/LOCATION: [place] NURSING NOTE TYPE: PROSTATE - MALE PELVIS Subjective Data No concerns voiced Additional Data Do you want to see a Pasting Inspector? No Status: Patient is male Stress Scale: On a scale of 0 to 10, what number best describes how much distress you have experienced in the past week?(0 being no distress and 10 being extreme distress) 1 Social work notified: Pt denied need to see social media manager at this time. Nursing Assessment Fatigue: increased fatigue over baseline but not altering normal activities Appetite: fair Nutritional Intake: Regular oral intake. Weight Gain/Loss: Not applicable Ambulatory weight history: Last 6 Encounter Wt Readings: Date: Wt: 10/15/2024 66.2 kg (146 lb) 10/12/2024 66.7 kg (147 lb) 09/24/2024 68 kg (150 lb) 09/06/2024 69.2 kg (152 lb 9.6 oz) 09/05/2024 69.2 kg (152 lb 8 oz) 08/29/2024 70.8 kg (156 lb) Nausea:None Vomiting: None Bowel Function: normal bowel movements Erythema/Hyperpigmentat ion:none Desquamation:none Rash:none Skin Care: Aquaphor Skin Sensation: Within Normal Limits Focused Assessment PROSTATE - MALE PELVIS: Rectal bleeding: No. Rectal pain: No. Bladder function: no problems. Urinary frequency (D/N): [id number]. SIGNED by: Nighat Hines RN Allergies As of Date: 10/16/2024 (No Known Allergies) Date Reviewed: 10/16/2024 Reviewed by: Nighat Hines RN - Fully Assessed Reason for Visit: Radiotherapy On-treatment Visit [1722] Primary Visit Diagnosis:Malignant neoplasm of trigone of urinary bladder (HCC) [C67.0] Prescriptions as of 10/16/2024 - ondansetron (ZOFRAN) 8 mg tablet Take 1 tablet by mouth every 8 hours as needed (For chemotherapy induced nausea and vomiting.). - phenazopyridine (PYRIDIUM) 100 mg tablet Take 100 mg by mouth three times a day. - cholecalciferol, vitamin D3, (VITAMIN D-3) 10 mcg (400 unit) cap Take 400 Units by mouth once daily. - amLODIPine (NORVASC) 5 mg tablet Take 5 mg by mouth once daily. - deakjcudzgy-ioattotyn-q ilanter (TRELEGY ELLIPTA) 200-62.5-25 mcg inhalation powder [...] 12 hours. Problem List As Of Date 10/16/2024 Noted Resolved CONTUSION OF FOREARM [S50.10XA] 08/09/2005 [...] 02/12/2019 Acute blood loss anemia [D62] 02/12/2019 (more content not included)... Normal [facility] CBC W Auto Differential pane l (Bld)on 10-15-2024 Basophils (Bld) [#/Vol] [facility] C [facility] Basophils/100 WBC (Bld) 0.5 % C [facility] Differential cell count method Nom (Bld) Auto [facility] Eosinophils (Bld) [#/Vol] 0.12 10*3/uL [facility] Eosinophils/100 WBC (Bld) 3.1 % [facility] Erythrocyte distribution width (RBC) [Ratio] 14.6 % 11.5 - 15.0 % [facility] Hematocrit (Bld) [Volume fraction] 32.5 % Low 39.0 - 51.0 % [facility] Hemoglobin (Bld) [Mass/Vol] 10.7 g/dL Low 13.0 - 17.0 g/dL [facility] Immature granulocytes (Bld) [#/Vol] [facility] Immature granulocytes/100 WBC (Bld) 0.3 % [facility] Interpretation and review of laboratory results Abnormal [facility] Lymphocytes (Bld) [#/Vol] 0.83 10*3/uL Low [facility] Lymphocytes/100 WBC (Bld) 21.3 % [facility] MCH (RBC) [Entitic mass] 31.0 pg 26.0 - 34.0 pg [facility] MCHC (RBC) [Mass/Vol] 32.9 g/dL 30.5 - 36.0 g/dL [facility] MCV (RBC) [Entitic vol] 94.2 fL 80.0 - 100.0 fL [facility] Monocytes (Bld) [#/Vol] 0.61 10*3/uL [facility] Monocytes/100 WBC (Bld) 15.6 % C [facility] Neutrophils (Bld) [#/Vol] 2.31 10*3/uL [facility] Neutrophils/100 WBC (Bld) 59.2 % [facility] Nucleated RBC (Bld) [#/Vol] NINF [facility] Nucleated RBC/100 WBC (Bld) [Ratio] 0.0 % /100 WBC [facility] Platelet mean volume (Bld) [Entitic vol] 8.9 fL Low 9.0 - 12.7 fL [facility] Platelets (Bld) [#/Vol] 105 10*3/uL Low [facility] Comment on above: No clot detected. RBC (Bld) [#/Vol] 3.45 10*6/uL Low 4.20 - 6.0 0 m/uL [facility] WBC (Bld) [#/Vol] 3.90 10*3/uL [facility] Basophils (Bld) [#/Vol] 10*3/uL Normal <0.11 C [facility] Comment on above: Order Comment: Speci men Type: BLOOD SPECIMENOrdering Facility: [facility] Address: [address] [address] Performed By: #### 5 7021-8 ####[facility] [id number] [place] [address] [place] Basophils/100 WBC (Bld) 0.5 % Normal [facility] Comment on above: Order Comment: Speci men Type: BLOOD SPECIMENOrdering Facility: [facility] Address: [address] [place] [address] Performed By: #### 5 7021-8 ####[facility] [id number] [place] [address] [place] Differential cell count method Nom (Bld) Auto Normal [facility] Comment on above: Order Comment: Speci men Type: BLOOD SPECIMENOrdering Facility: [facility] Address: [address] [place] [address] Performed By: #### 5 7021-8 ####[facility] [id number] [place] [address] [place] Eosinophils (Bld) [#/Vol] 0.12 10*3/uL Normal <0.46 [facility] Comment on above: Order Comment: Speci men Type: BLOOD SPECIMENOrdering Facility: [facility] Address: [address] [place] [address] Performed By: #### 5 7021-8 ####[facility]ITALGREGORIO [id number] [place] [address] [place] Eosinophils/100 WBC (Bld) 3.1 % Normal [facility] Comment on above: Order Comment: Speci men Type: BLOOD SPECIMENOrdering Facility: [facility] Address: [address] [place] [address] Performed By: #### 5 7021-8 ####[facility] [id number] [place] [address] [place] Erythrocyte distribution width (RBC) [Ratio] 14.6 % Normal 11.5-15.0 [facility] Comment on above: Order Comment: Speci men Type: BLOOD SPECIMENOrdering Facility: [facility] Address: [address] [place] [address] Performed By: #### 5 7021-8 ####[facility] [id number] [place] [address] [place] Hematocrit (Bld) [Volume fraction] 32.5 % Low 39.0-51.0 [facility] Comment on above: Order Comment: Speci men Type: BLOOD SPECIMENOrdering Facility: [facility] Address: [address] [place] [place] [address] Performed By: #### 5 7021-8 ####[facility] [id number] [place] [address] [place] Hemoglobin (Bld) [Mass/Vol] 10.7 g/dL Low 13.0-17.0 [facility] Comment on above: Order Comment: Speci men Type: BLOOD SPECIMENOrdering Facility: [facility] Address: [address] [place] [place] [address] Performed By: #### 5 7021-8 ####[facility] ABELARDO [id number] [place] [address] [place] Immature granulocytes (Bld) [#/Vol] 10*3/uL Normal <0.10 [facility] Comment on above: Order Comment: Speci men Type: BLOOD SPECIMENOrdering Facility: [facility] Address: [address] [place] [address] Performed By: #### 5 7021-8 ####[facility]ITAL[facility] [id number] [place] [address] [place] Immature granulocytes/100 WBC (Bld) 0.3 % Normal [facility] Comment on above: Order Comment: Speci men Type: BLOOD SPECIMENOrdering Facility: [facility] Address: [address] [place] [address] Performed By: #### 5 7021-8 ####[facility] [id number] [place] [address] [place] Lymphocytes (Bld) [#/Vol] 0.83 10*3/uL Low 1.00-4.00 [facility] Comment on above: Order Comment: Speci men Type: BLOOD SPECIMENOrdering Facility: [facility] Address: [address] [place] [place] [address] Performed By: #### 5 7021-8 ####[facility]ITAL[facility] [id number] [place] [address] [place] Lymphocytes/100 WBC (Bld) 21.3 % Normal [facility] Comment on above: Order Comment: Speci men Type: BLOOD SPECIMENOrdering Facility: [facility] Address: [address] [place] [place] [address] Performed By: #### 5 7021-8 ####[facility]ITAL[facility]CL[facility] [id number] [place] [address] [place] MCH (RBC) [Entitic mass] 31.0 pg Normal 26.0-34.0 [facility] Comment on above: Order Comment: Speci men Type: BLOOD SPECIMENOrdering Facility: [facility] Address: [address] [place] [address] Performed By: #### 5 7021-8 ####[facility] [id number] [place] [address] [place] MCHC (RBC) [Mass/Vol] 32.9 g/dL Normal 30.5-36.0 [facility] Comment on above: Order Comment: Speci men Type: BLOOD SPECIMENOrdering Facility: [facility] Address: [address] [place] [address] Performed By: #### 5 7021-8 ####[facility] [id number] [place] [address] [place] MCV (RBC) [Entitic vol] 94.2 fL Normal 80.0-100.0 [facility] Comment on above: Order Comment: Speci men Type: BLOOD SPECIMENOrdering Facility: [facility] Address: [address] [place] [address] Performed By: #### 5 7021-8 ####[facility] [id number] [place] [address] [place] Monocytes (Bld) [#/Vol] 0.61 10*3/uL Normal <0.87 [facility] Comment on above: Order Comment: Speci men Type: BLOOD SPECIMENOrdering Facility: [facility] Address: [address] [place] [address] Performed By: #### 5 7021-8 ####[facility] [id number] [place] [address] [place] Monocytes/100 WBC (Bld) 15.6 % Normal [facility] Comment on above: Order Comment: Speci men Type: BLOOD SPECIMENOrdering Facility: [facility] Address: [address] [place] [place] [address] Performed By: #### 5 7021-8 ####[facility] [id number] [place] [address] [place] Neutrophils (Bld) [#/Vol] 2.31 10*3/uL Normal 1.45-7.50 [facility] Comment on above: Order Comment: Speci men Type: BLOOD SPECIMENOrdering Facility: [facility] Address: [address] [place] [address] Performed By: #### 5 7021-8 ####[facility] [facility] [id number] [place] [address] [place] Neutrophils/100 WBC (Bld) 59.2 % Normal [facility] Comment on above: Order Comment: Speci men Type: BLOOD SPECIMENOrdering Facility: [facility] Address: [address] [place] [address] Performed By: #### 5 7021-8 ####[facility] [id number] [place] [address] [place] Nucleated RBC (Bld) [#/Vol] 10*3/uL Normal <0.01 [facility] Comment on above: Order Comment: Speci men Type: BLOOD SPECIMENOrdering Facility: [facility] Address: [address] [place] [address] Performed By: #### 5 7021-8 ####[facility] [id number] [place] [address] [place] Nucleated RBC/100 WBC (Bld) [Ratio] 0.0 /100 WBC Normal [facility] Comment on above: Order Comment: Speci men Type: BLOOD SPECIMENOrdering Facility: [facility] Address: [address] [place] [address] Performed By: #### 5 7021-8 ####[facility]ENTERMILKA ROBISONWNCLIA [id number] [place] [address] [place] Platelet mean volume (Bld) [Entitic vol] 8.9 fL Low 9.0-12.7 [facility] Comment on above: Order Comment: Speci men Type: BLOOD SPECIMENOrdering Facility: [facility] Address: [address] [place] [address] Performed By: #### 5 7021-8 ####[facility]ITALNCGREGORIOA [id number] [place] [address] [place] Platelets (Bld) [#/Vol] 105 10*3/uL Low 150-400 [facility] Comment on above: Order Comment: Speci men Type: BLOOD SPECIMENOrdering Facility: [facility] Address: [address] [place] [address] Result Comment: No c lot detected. Performed By: #### 5 7021-8 ####[facility] HOSPITALRICLIA [id number] [place] [address] [place] RBC (Bld) [#/Vol] 3.45 10*6/uL Low 4.20-6.00 [facility] Comment on above: Order Comment: Speci men Type: BLOOD SPECIMENOrdering Facility: [facility] Address: [address] [place] [address] Performed By: #### 5 7021-8 ####[facility]PITALNCLIA [id number] [place] [address] [place] WBC (Bld) [#/Vol] 3.90 10*3/uL Normal 3.70-11.00 [facility] Comment on above: Order Comment: Speci men Type: BLOOD SPECIMENOrdering Facility: [facility] Address: [address], [place] [address] Performed By: #### 5 7021-8 ####[facility] JENNIFER ZHOU [id number] [place] [id number] [place] CNOVSPon 10-12-2024 CNOVSP Visit (SP) Office (VAIBHAV) ABELARDO IVORY ([id number]) 1950 M Date Time Provider Department 10/12/24 11:30 AM BOB OTERO During your visit today, we recorded the following information about you: Temperature Pulse Blood pressure Weight 97.6 degrees 58/minute 158/78 66.7 kg Bob Otero 10/12/2024 12:41 PM Signed Abelardo Ivory 1950 10/12/2024 Patient self-referred for muscle invasive bladder cancer. HPI: The patient is a 74-year-old male with a past medical history as outlined below. Developed gross hematuria and noticed debris in urine. Saw Dr. Mcclendon. Had TURBT with chemo flush. Path below. Referred to [facility] b/c patient declined cystectomy. Per Dr. [...] ppd since age 15 years Pathology from [facility] reviewed at main campus: A. Urinary bladder, transurethral resection: - Invasive [...] cough. Clear sputum. Sees Dr. Zuñiga at [facility]. Smokes about 1/2 ppd. No alcohol. Interval Hx: Pt presents today for follow up on concurrent chemo/radiation. Tolerated chemo well. A little bit of nausea managed with antiemetic. He notes he has been taking zofran q8 hours scheduled. He thought he was supposed to be taking Q8 daily. No HFS. Denies neuropathy. No fevers, chills or NS. Denies rash or skin changes. No changes in bowel or bladder habits. No UTI symptoms. Denies bleeding. Reviewed labs today. Thrombocytopenia. He is on ASA. Advised to hold for now. 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 cholecalciferol, vitamin D3, (VITAMIN D-3) 10 mcg (400 unit) cap Take 400 Units by mouth once daily. amLODIPine (NORVASC) 5 mg tablet Take 5 mg by mouth once daily. tpamhrbwmgy-aqhcsglst-r ilanter (TRELEGY ELLIPTA) 200-62.5-25 mcg inhalation powder Inhale 1 puff as instructed once daily. acetaminophen (TYLENOL) 325 mg tablet Take 2 tablets by mouth every 4 hours. rosuvastatin (CRESTOR) 5 mg tablet Take 5 mg by mouth once (more content not included)... Normal [facility] CBC W Auto Differential pane l (Bld)on 10-09-2024 Basophils (Bld) [#/Vol] [facility] C [facility] Basophils/100 WBC (Bld) 0.4 % C [facility] Differential cell count method Nom (Bld) Auto [facility] Eosinophils (Bld) [#/Vol] 0.11 10*3/uL [facility] Eosinophils/100 WBC (Bld) 2.0 % [facility] Erythrocyte distribution width (RBC) [Ratio] 14.1 % 11.5 - 15.0 % [facility] Hematocrit (Bld) [Volume fraction] 32.7 % Low 39.0 - 51.0 % [facility] Hemoglobin (Bld) [Mass/Vol] 10.8 g/dL Low 13.0 - 17.0 g/dL [facility] Immature granulocytes (Bld) [#/Vol] [facility] Immature granulocytes/100 WBC (Bld) 0.4 % [facility] Interpretation and review of laboratory results Abnormal [facility] Lymphocytes (Bld) [#/Vol] 1.08 10*3/uL [facility] Lymphocytes/100 WBC (Bld) 19.4 % [facility] MCH (RBC) [Entitic mass] 30.9 pg 26.0 - 34.0 pg [facility] MCHC (RBC) [Mass/Vol] 33.0 g/dL 30.5 - 36.0 g/dL [facility] MCV (RBC) [Entitic vol] 93.4 fL 80.0 - 100.0 fL [facility] Monocytes (Bld) [#/Vol] 0.45 10*3/uL [facility] Monocytes/100 WBC (Bld) 8.1 % C [facility] Neutrophils (Bld) [#/Vol] 3.88 10*3/uL [facility] Neutrophils/100 WBC (Bld) 69.7 % [facility] Nucleated RBC (Bld) [#/Vol] [facility] Nucleated RBC/100 WBC (Bld) [Ratio] 0.0 % /100 WBC [facility] Platelet mean volume (Bld) [Entitic vol] 9.1 fL 9.0 - 12.7 fL [facility] Platelets (Bld) [#/Vol] 55 10*3/uL Low [facility] Comment on above: No clot detected. RBC (Bld) [#/Vol] 3.50 10*6/uL Low 4.20 - 6.0 0 m/uL [facility] WBC (Bld) [#/Vol] 5.56 10*3/uL [facility] Basophils (Bld) [#/Vol] 10*3/uL Normal <0.11 [facility] Comment on above: Order Comment: Speci men Type: BLOOD SPECIMENOrdering Facility: [facility] Address: [address] [place] [address] Performed By: #### 5 7021-8 ####[facility] [id number] [address] [place] Basophils/100 WBC (Bld) 0.4 % Normal [facility] Comment on above: Order Comment: Speci men Type: BLOOD SPECIMENOrdering Facility: [facility] Address: [address] [place], [place] [address] Performed By: #### 5 7021-8 ####[facility] MILLWRICLIA [id number] [place] [address] [place] Differential cell count method Nom (Bld) Auto Normal [facility] Comment on above: Order Comment: Speci men Type: BLOOD SPECIMENOrdering Facility: [facility] Address: [address] [place] [address] Performed By: #### 5 7021-8 ####[facility] HOSPITALRICLIA [id number] [place] [address] [place] Eosinophils (Bld) [#/Vol] 0.11 10*3/uL Normal <0.46 [facility] Comment on above: Order Comment: Speci men Type: BLOOD SPECIMENOrdering Facility: [facility] Address: [address] [place] [address] Performed By: #### 5 7021-8 ####[facility]OSPITALRICLIA [id number] [place] [address] [place] Eosinophils/100 WBC (Bld) 2.0 % Normal [facility] Comment on above: Order Comment: Speci men Type: BLOOD SPECIMENOrdering Facility: [facility] Address: [address] [place] [address] Performed By: #### 5 7021-8 ####[facility]OSPITALRICLIA [id number] [place] [address] [place] Erythrocyte distribution width (RBC) [Ratio] 14.1 % Normal 11.5-15.0 [facility] Comment on above: Order Comment: Speci men Type: BLOOD SPECIMENOrdering Facility: [facility] Address: [address] [place] [address] Performed By: #### 5 7021-8 ####[facility] HOSPITALNCLIA [id number] [place] [address] [place] Hematocrit (Bld) [Volume fraction] 32.7 % Low 39.0-51.0 [facility] Comment on above: Order Comment: Speci men Type: BLOOD SPECIMENOrdering Facility: [facility] Address: [address] [place] [address] Performed By: #### 5 7021-8 ####[facility] [id number] [place] [address] [place] Hemoglobin (Bld) [Mass/Vol] 10.8 g/dL Low 13.0-17.0 [facility] Comment on above: Order Comment: Speci men Type: BLOOD SPECIMENOrdering Facility: [facility] Address: [address] [place] [address] Performed By: #### 5 7021-8 ####[facility] [id number] [place] [address] [place] Immature granulocytes (Bld) [#/Vol] 10*3/uL Normal <0.10 [facility] Comment on above: Order Comment: Speci men Type: BLOOD SPECIMENOrdering Facility: [facility] Address: [address] [place] [address] Performed By: #### 5 7021-8 ####[facility] [id number] [place] [address] [place] Immature granulocytes/100 WBC (Bld) 0.4 % Normal [facility] Comment on above: Order Comment: Speci men Type: BLOOD SPECIMENOrdering Facility: [facility] Address: [address] [place] [address] Performed By: #### 5 7021-8 ####[facility] [id number] [place] [address] [place] Lymphocytes (Bld) [#/Vol] 1.08 10*3/uL Normal 1.00-4.00 [facility] Comment on above: Order Comment: Speci men Type: BLOOD SPECIMENOrdering Facility: [facility] Address: [address] [place] [address] Performed By: #### 5 7021-8 ####[facility] ANGELICAMAGGI [id number] [place] [address] [place] Lymphocytes/100 WBC (Bld) 19.4 % Normal [facility] Comment on above: Order Comment: Speci men Type: BLOOD SPECIMENOrdering Facility: [facility] Address: [address] [place] [address] Performed By: #### 5 7021-8 ####[facility] HOSPITALNCSATISH [id number] [place] [address] [place] MCH (RBC) [Entitic mass] 30.9 pg Normal 26.0-34.0 [facility] Comment on above: Order Comment: Speci men Type: BLOOD SPECIMENOrdering Facility: [facility] Address: [address] [place] [address] Performed By: #### 5 7021-8 ####[facility] HOSPITALNCAristides [id number] [place] [address] [place] MCHC (RBC) [Mass/Vol] 33.0 g/dL Normal 30.5-36.0 [facility] Comment on above: Order Comment: Speci men Type: BLOOD SPECIMENOrdering Facility: [facility] Address: [address] [place] [address] Performed By: #### 5 7021-8 ####[facility]OSPITALNCLIAristides [id number] [place] [address] [place] MCV (RBC) [Entitic vol] 93.4 fL Normal 80.0-100.0 C [facility] Comment on above: Order Comment: Speci men Type: BLOOD SPECIMENOrdering Facility: [facility] Address: [address] [place] [address] Performed By: #### 5 7021-8 ####[facility] MILLWNCLIA [id number] [place] [address] [place] Monocytes (Bld) [#/Vol] 0.45 10*3/uL Normal <0.87 [facility] Comment on above: Order Comment: Speci men Type: BLOOD SPECIMENOrdering Facility: [facility] Address: [address] [place] [address] Performed By: #### 5 7021-8 ####[facility] HOSPITALLIA [id number] [place] [address] [place] Monocytes/100 WBC (Bld) 8.1 % Normal [facility] Comment on above: Order Comment: Speci men Type: BLOOD SPECIMENOrdering Facility: [facility] Address: [address] [place] [address] Performed By: #### 5 7021-8 ####[facility] COMM[facility] HOSPITALLIA [id number] [place] [address] [place] Neutrophils (Bld) [#/Vol] 3.88 10*3/uL Normal 1.45-7.50 [facility] Comment on above: Order Comment: Speci men Type: BLOOD SPECIMENOrdering Facility: [facility] Address: [address] [place] [address] Performed By: #### 5 7021-8 ####[facility] HOSPITALLIA [id number] [place] [address] [place] Neutrophils/100 WBC (Bld) 69.7 % Normal [facility] Comment on above: Order Comment: Speci men Type: BLOOD SPECIMENOrdering Facility: [facility] Address: [address] [place] [address] Performed By: #### 5 7021-8 ####[facility] HOSPITALNCLIA [id number] [place] [address] [place] Nucleated RBC (Bld) [#/Vol] 10*3/uL Normal <0.01 [facility] Comment on above: Order Comment: Speci men Type: BLOOD SPECIMENOrdering Facility: [facility] Address: [address] [place] [address] Performed By: #### 5 7021-8 ####[facility] [id number] [place] [address] [place] Nucleated RBC/100 WBC (Bld) [Ratio] 0.0 /100 WBC Normal [facility] Comment on above: Order Comment: Speci men Type: BLOOD SPECIMENOrdering Facility: [facility] Address: [address] [place] [address] Performed By: #### 5 7021-8 ####[facility]PITALNCMOUNTAIN [facility] [id number] [place] [address] [place] Platelet mean volume (Bld) [Entitic vol] 9.1 fL Normal 9.0-12.7 [facility] Comment on above: Order Comment: Speci men Type: BLOOD SPECIMENOrdering Facility: [facility] Address: [address] [place] [address] Performed By: #### 5 7021-8 ####[facility] [id number] [place] [address] [place] Platelets (Bld) [#/Vol] 55 10*3/uL Low 150-400 [facility] Comment on above: Order Comment: Speci men Type: BLOOD SPECIMENOrdering Facility: [facility] Address: [address] [place] [address] Result Comment: No c lot detected. Performed By: #### 5 7021-8 ####[facility] [id number] [place] [address] [place] RBC (Bld) [#/Vol] 3.50 10*6/uL Low 4.20-6.00 [facility] Comment on above: Order Comment: Speci men Type: BLOOD SPECIMENOrdering Facility: [facility] Address: [address] [place] [address] Performed By: #### 5 7021-8 ####[facility]OSPITALNCLIA [id number] [place] [address] [place] WBC (Bld) [#/Vol] 5.56 10*3/uL Normal 3.70-11.00 [facility] Comment on above: Order Comment: Speci men Type: BLOOD SPECIMENOrdering Facility: [facility] Address: [address] [place] [address] Performed By: #### 5 7021-8 ####[facility]OSPITALNCLIA [id number] [address] [place] CNOVon 10-09-2024 CNOV Office Visit (RADTWS ) ABELARDO IVORY ([id number]) 1950 M Date Time Provider Department 10/09/24 10:15 AM LUIGI BANKS RADTWS During your visit today, we recorded the following information about you: Temperature Pulse Blood pressure 97.6 degrees 61/minute 105/63 Shreya Grace, ANGELA 10/09/2024 10:02 AM Signed Radiation Therapy - Nursing Note (OTV) PATIENT NAME: Abelardo Ivory PATIENT October 09, 2024 [facility] FACILITY/LOCATION: [facility] NOTE TYPE: PROSTATE - MALE PELVIS Subjective Data Pt states his pain is much in better, not taking pain meds much at this time Additional Data Do you want to see a Pasting Inspector? No Status: Patient is male Stress Scale: On a scale of 0 to 10, what number best describes how much distress you have experienced in the past week?(0 being no distress and 10 being extreme distress) 1 Social work notified: Pt denied need to see social media manager at this time. Nursing Assessment Fatigue: increased fatigue over baseline but not altering normal activities Appetite: fair Nutritional Intake: Regular oral intake. Weight Gain/Loss: No Ambulatory weight history: Last 6 Encounter Wt Readings: Date: Wt: 09/24/2024 68 kg (150 lb) 09/06/2024 69.2 kg (152 lb 9.6 oz) 09/05/2024 69.2 kg (152 lb 8 oz) 08/29/2024 70.8 kg (156 lb) 08/16/2024 70.9 kg (156 lb 6.4 oz) 08/02/2024 70.8 kg (156 lb) Nausea:None Vomiting: None Bowel Function: normal bowel movements Erythema/Hyperpigmentat ion:none Desquamation:none Rash:none Skin Care: Aquaphor Skin Sensation: Within Normal Limits Focused Assessment PROSTATE - MALE PELVIS: Rectal bleeding: No. Rectal pain: No. Bladder function: painful urination. Urinary frequency (D/N): stable/1-3. 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 COURSE: definitive and concurrent chemotherapy (Mitomycin 5-FU) AREA TREATED: Bladder CURRENT DOSE: 3025 cGy in 11 fx PLANNED DOSE: 5500 cGy in 20 fx SUBJECTIVE: He is doing well without any specific new complaints related to radiation treatment. Bladder pain resolved now. EXAM: KPS: 90 General Appearance: Alert and oriented. No acute distress. IMAGING/LAB RESULTS: CBC today reviewed. Platelet count 55K. Treatment chart checked: Yes Patient treatment site reviewed and verified:Yes CBCTs reviewed and current:Yes Medications started: None ASSESSMENT/PLAN: Clinically stable. Treatment-related side effects within expected parameters. Continue radiation treatment as planned. 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 - ondansetron (ZOFRAN) 8 mg tablet Take 1 tablet by mouth every 8 hours as needed (For chemotherapy induced nausea and vomiting.). - phenazopyridine (PYRIDIUM) 100 mg tablet Take 100 mg by mouth three times a day. - cholecalciferol, vitamin D3, (VITAMIN D-3) 10 mcg (400 unit) cap Take 400 Units by mouth once daily. - amLODIPine (NORVASC) 5 mg tablet Take 5 mg by mouth once daily. - lavjuexfmgh-flkduhqjw-p ilanter (TRELEGY ELLIPTA) 200-62.5-25 mcg inhalation powder [...] 12 hours. Problem List As Of Date 10/09/2024 Noted Resolved CONTUSION OF FOREARM [S50.10XA] 08/09/2005 08/09/2005 Umbilical hernia without mention of obstruction*06/08/2012 Bilateral inguinal hernia [K40.20] 06/08/2012 Carpal tunnel syndrome of right wrist [G56.01] 06/08/2012 Aortic stenosis [I35.0] Smoking history [Z87.891] 09/07/2012 Hematuria [R31.9] 09/07/2012 Abdominal aortic aneurysm (HCC) [I71.40] 09/07/2012 10/27/2012 Coronary artery disease involving coronary bypa*02/06/2019 Essential hypertension [I10] 02/06/2019 Hyperlipidemia [E78.5] 02/06/2019 AAA (abdominal aortic aneurysm) without r (more content not included)... Normal [facility] CNOVon 10-02-2024 CNOV Office Visit (RADTWS ) ABELARDO IVORY ([id number]) 1950 M Date Time Provider Department 10/02/24 10:15 AM LUIGI BANKS During your visit today, we recorded the following information about you: Temperature Pulse Respiration Blood pressure 98.2 degrees 59/minute 14/minute 148/74 Unruly Diaz, RN 10/02/2024 10:20 AM Signed Radiation Therapy - Nursing Note (OTV) PATIENT NAME: Abelardo Ivory PATIENT October 02, 2024 [facility] FACILITY/LOCATION: [place] NURSING NOTE TYPE: PROSTATE - MALE PELVIS Subjective Data No complaints Additional Data Do you want to see a Pasting Inspector? No Status: Patient is male Stress Scale: On a scale of 0 to 10, what number best describes how much distress you have experienced in the past week?(0 being no distress and 10 being extreme distress) 2 Social work notified: no Nursing Assessment Fatigue: increased fatigue over baseline but not altering normal activities Appetite: good Nutritional Intake: Regular oral intake. Weight Gain/Loss: No Ambulatory weight history: Last 6 Encounter Wt Readings: Date: Wt: 09/24/2024 68 kg (150 lb) 09/06/2024 69.2 kg (152 lb 9.6 oz) 09/05/2024 69.2 kg (152 lb 8 oz) 08/29/2024 70.8 kg (156 lb) 08/16/2024 70.9 kg (156 lb 6.4 oz) 08/02/2024 70.8 kg (156 lb) Nausea:None Vomiting: None Bowel Function: normal bowel movements Erythema/Hyperpigmentat ion:none Desquamation:none Rash:none Skin Care: Aquaphor Skin Sensation: Within Normal Limits Focused Assessment PROSTATE - MALE PELVIS: Rectal bleeding: No. Rectal pain: No. Bladder function: no problems. Urinary frequency (D/N): same/same. 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 COURSE: definitive and concurrent chemotherapy (Mitomycin 5-FU) AREA TREATED: Bladder CURRENT DOSE: 1925 cGy in 7 fx PLANNED DOSE: 5500 cGy in 20 fx SUBJECTIVE: He is doing well without any specific new complaints related to radiation treatment. Bladder pain resolved now. EXAM: KPS: 90 General Appearance: Alert and oriented. No acute distress. IMAGING/LAB RESULTS: None Treatment chart checked: Yes Patient treatment site reviewed and verified:Yes CBCTs reviewed and current:Yes Medications started: None ASSESSMENT/PLAN: Clinically stable. No significant treatment-related side effects. Continue radiation treatment as planned. 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 - ondansetron (ZOFRAN) 8 mg tablet Take 1 tablet by mouth every 8 hours as needed (For chemotherapy induced nausea and vomiting.). - phenazopyridine (PYRIDIUM) 100 mg tablet Take 100 mg by mouth three times a day. - cholecalciferol, vitamin D3, (VITAMIN D-3) 10 mcg (400 unit) cap Take 400 Units by mouth once daily. - amLODIPine (NORVASC) 5 mg tablet Take 5 mg by mouth once daily. - rirjqqrtjoa-ymhpixbrq-w ilanter (TRELEGY ELLIPTA) 200-62.5-25 mcg inhalation powder [...] 12 hours. Problem List As Of Date 10/02/2024 Noted Resolved CONTUSION OF FOREARM [S50.10XA] 08/09/2005 [...] [J98.11] 02/12/2019 Acute blood loss anemia [D62] 02/12 (more content not included)... Normal [facility] CBC W Auto Differential pane l (Bld)on 10-01-2024 Basophils (Bld) [#/Vol] 0.03 10*3/uL [facility] Basophils/100 WBC (Bld) 0.7 % C [facility] Differential cell count method Nom (Bld) Auto [facility] Eosinophils (Bld) [#/Vol] 0.04 10*3/uL [facility] Eosinophils/100 WBC (Bld) 0.9 % [facility] Erythrocyte distribution width (RBC) [Ratio] 13.8 % 11.5 - 15.0 % [facility] Hematocrit (Bld) [Volume fraction] 33.8 % Low 39.0 - 51.0 % [facility] Hemoglobin (Bld) [Mass/Vol] 10.9 g/dL Low 13.0 - 17.0 g/dL [facility] Immature granulocytes (Bld) [#/Vol] 0.03 10*3/uL [facility] Immature granulocytes/100 WBC (Bld) 0.7 % [facility] Interpretation and review of laboratory results Abnormal [facility] Lymphocytes (Bld) [#/Vol] 1.25 10*3/uL [facility] Lymphocytes/100 WBC (Bld) 28.7 % [facility] MCH (RBC) [Entitic mass] 30.4 pg 26.0 - 34.0 pg [facility] MCHC (RBC) [Mass/Vol] 32.2 g/dL 30.5 - 36.0 g/dL [facility] MCV (RBC) [Entitic vol] 94.4 fL 80.0 - 100.0 fL [facility] Monocytes (Bld) [#/Vol] 0.23 10*3/uL [facility] Monocytes/100 WBC (Bld) 5.3 % [facility] Neutrophils (Bld) [#/Vol] 2.78 10*3/uL [facility] Neutrophils/100 WBC (Bld) 63.7 % [facility] Nucleated RBC (Bld) [#/Vol] [facility] Nucleated RBC/100 WBC (Bld) [Ratio] 0.0 % /100 WBC [facility] Platelet mean volume (Bld) [Entitic vol] 8.9 fL Low 9.0 - 12.7 fL [facility] Platelets (Bld) [#/Vol] 107 10*3/uL Low [facility] RBC (Bld) [#/Vol] 3.58 10*6/uL Low 4.20 - 6.0 0 m/uL [facility] WBC (Bld) [#/Vol] 4.36 10*3/uL [facility] Basophils (Bld) [#/Vol] 0.03 10*3/uL Normal <0.11 [facility] Comment on above: Order Comment: Speci men Type: BLOOD SPECIMENOrdering Facility: [facility] Address: [address] [place] [address] Performed By: #### 5 7021-8 ####[facility] ERWNCLIA [id number] [place] [address] [place] Basophils/100 WBC (Bld) 0.7 % Normal [facility] Comment on above: Order Comment: Speci men Type: BLOOD SPECIMENOrdering Facility: [facility] Address: [address] [place] [address] Performed By: #### 5 7021-8 ####[facility]PIT[facility] [id number] [place] [address] [place] Differential cell count method Nom (Bld) Auto Normal [facility] Comment on above: Order Comment: Speci men Type: BLOOD SPECIMENOrdering Facility: [facility] Address: [address] [place] [address] Performed By: #### 5 7021-8 ####[facility]OSPITALLIA [id number] [place] [address] [place] Eosinophils (Bld) [#/Vol] 0.04 10*3/uL Normal <0.46 [facility] Comment on above: Order Comment: Speci men Type: BLOOD SPECIMENOrdering Facility: [facility] Address: [address] [place] [address] Performed By: #### 5 7021-8 ####[facility] HOSPITALLIA [id number] [place] [address] [place] Eosinophils/100 WBC (Bld) 0.9 % Normal [facility] Comment on above: Order Comment: Speci men Type: BLOOD SPECIMENOrdering Facility: [facility] Address: [address] [place] [address] Performed By: #### 5 7021-8 ####[facility]PITALL[facility] [id number] [place] [address] [place] Erythrocyte distribution width (RBC) [Ratio] 13.8 % Normal 11.5-15.0 [facility] Comment on above: Order Comment: Speci men Type: BLOOD SPECIMENOrdering Facility: [facility] Address: [address] [place] [address] Performed By: #### 5 7021-8 ####[facility] [id number] [place] [address] [place] Hematocrit (Bld) [Volume fraction] 33.8 % Low 39.0-51.0 [facility] Comment on above: Order Comment: Speci men Type: BLOOD SPECIMENOrdering Facility: [facility] Address: [address] [place] [address] Performed By: #### 5 7021-8 ####[facility] [id number] [place] [address] [place] Hemoglobin (Bld) [Mass/Vol] 10.9 g/dL Low 13.0-17.0 [facility] Comment on above: Order Comment: Speci men Type: BLOOD SPECIMENOrdering Facility: [facility] Address: [address] [place] [address] Performed By: #### 5 7021-8 ####[facility]ITALBRIAN [id number] [place] [address] [place] Immature granulocytes (Bld) [#/Vol] 0.03 10*3/uL Normal <0.10 [facility] Comment on above: Order Comment: Speci men Type: BLOOD SPECIMENOrdering Facility: [facility] Address: [address] [place] [address] Performed By: #### 5 7021-8 ####[facility]ITALNCLIA [id number] [place] [address] [place] Immature granulocytes/100 WBC (Bld) 0.7 % Normal [facility] Comment on above: Order Comment: Speci men Type: BLOOD SPECIMENOrdering Facility: [facility] Address: [address] [place] [address] Performed By: #### 5 7021-8 ####[facility] [id number] [place] [address] [place] Lymphocytes (Bld) [#/Vol] 1.25 10*3/uL Normal 1.00-4.00 [facility] Comment on above: Order Comment: Speci men Type: BLOOD SPECIMENOrdering Facility: [facility] Address: [address] [place] [address] Performed By: #### 5 7021-8 ####[facility] [id number] [place] [address] [place] Lymphocytes/100 WBC (Bld) 28.7 % Normal [facility] Comment on above: Order Comment: Speci men Type: BLOOD SPECIMENOrdering Facility: [facility] Address: [address] [place] [address] Performed By: #### 5 7021-8 ####[facility] [id number] [place] [address] [place] MCH (RBC) [Entitic mass] 30.4 pg Normal 26.0-34.0 [facility] Comment on above: Order Comment: Speci men Type: BLOOD SPECIMENOrdering Facility: [facility] Address: [address] [place] [address] Performed By: #### 5 7021-8 ####[facility] [id number] [place] [address] [place] MCHC (RBC) [Mass/Vol] 32.2 g/dL Normal 30.5-36.0 [facility] Comment on above: Order Comment: Speci men Type: BLOOD SPECIMENOrdering Facility: [facility] Address: [address] [place] [address] Performed By: #### 5 7021-8 ####[facility] ANGELICAWNCLIA [id number] [place] [address] [place] MCV (RBC) [Entitic vol] 94.4 fL Normal 80.0-100.0 [facility] Comment on above: Order Comment: Speci men Type: BLOOD SPECIMENOrdering Facility: [facility] Address: [address] [place] [address] Performed By: #### 5 7021-8 ####[facility]ITALNCLIA [id number] [place] [address] [place] Monocytes (Bld) [#/Vol] 0.23 10*3/uL Normal <0.87 [facility] Comment on above: Order Comment: Speci men Type: BLOOD SPECIMENOrdering Facility: [facility] Address: [address] [place] [address] Performed By: #### 5 7021-8 ####[facility]PITALRICLIA [id number] [place] [address] [place] Monocytes/100 WBC (Bld) 5.3 % Normal [facility] Comment on above: Order Comment: Speci men Type: BLOOD SPECIMENOrdering Facility: [facility] Address: [address] [place] [address] Performed By: #### 5 7021-8 ####[facility] ERWNCLIA [id number] [place] [address] [place] Neutrophils (Bld) [#/Vol] 2.78 10*3/uL Normal 1.45-7.50 [facility] Comment on above: Order Comment: Speci men Type: BLOOD SPECIMENOrdering Facility: [facility] Address: [address] [place] [address] Performed By: #### 5 7021-8 ####[facility]ITALNCLIA [id number] [place] [address] [place] Neutrophils/100 WBC (Bld) 63.7 % Normal [facility] Comment on above: Order Comment: Speci men Type: BLOOD SPECIMENOrdering Facility: [facility] Address: [address] [place] [address] Performed By: #### 5 7021-8 ####[facility] [id number] [place] [address] [place] Nucleated RBC (Bld) [#/Vol] 10*3/uL Normal <0.01 [facility] Comment on above: Order Comment: Speci men Type: BLOOD SPECIMENOrdering Facility: [facility] Address: [address] [place] [address] Performed By: #### 5 7021-8 ####[facility] [id number] [place] [address] [place] Nucleated RBC/100 WBC (Bld) [Ratio] 0.0 /100 WBC Normal [facility] Comment on above: Order Comment: Speci men Type: BLOOD SPECIMENOrdering Facility: [facility] Address: [address] [place] [address] Performed By: #### 5 7021-8 ####[facility] [id number] [place] [address] [place] Platelet mean volume (Bld) [Entitic vol] 8.9 fL Low 9.0-12.7 [facility] Comment on above: Order Comment: Speci men Type: BLOOD SPECIMENOrdering Facility: [facility] Address: [address] [place] [address] Performed By: #### 5 7021-8 ####[facility]OSPITALNCLI [id number] [place] [address] [place] Platelets (Bld) [#/Vol] 107 10*3/uL Low 150-400 [facility] Comment on above: Order Comment: Speci men Type: BLOOD SPECIMENOrdering Facility: [facility] Address: [facility] [place] [address] Performed By: #### 5 7021-8 ####[facility]PITALNCLIA [id number] [place] [address] [place] RBC (Bld) [#/Vol] 3.58 10*6/uL Low 4.20-6.00 [facility] Comment on above: Order Comment: Speci men Type: BLOOD SPECIMENOrdering Facility: [facility] Address: [address] [place] [place] [address] Performed By: #### 5 7021-8 ####[facility]ITALNCLIA [id number] [place] [address] [place] WBC (Bld) [#/Vol] 4.36 10*3/uL Normal 3.70-11.00 [facility] Comment on above: Order Comment: Speci men Type: BLOOD SPECIMENOrdering Facility: [facility] Address: [facility] [place] [place] [address] Performed By: #### 5 7021-8 ####[facility]ITALNCLIA [id number] [place] [address] [place] Comprehensive metabolic 2000 panelOrdered By: Rissa Browning on 10-01-2024 Albumin [Mass/Vol] 3.9 g/dL 3.9 - 4.9 g/dL [facility] ALP [Catalytic activity/Vol] 59 U/L 38 - 113 U/L [facility] ALT [Catalytic activity/Vol] 5 U/L Low 10 - 54 U/L [facility] Anion gap [Moles/Vol] 10 mmol/L 8 - 15 mmol/L [facility] AST [Catalytic activity/Vol] 9 U/L Low 14 - 40 U/L [facility] Bilirubin [Mass/Vol] 0.3 mg/dL 0.2 - 1 .3 mg/dL [facility] Calcium [Mass/Vol] 9.0 mg/dL 8.5 - 10. 2 mg/dL [facility] Chloride [Moles/Vol] 108 mmol/L High 98 - 10 7 mmol/L [facility] CO2 [Moles/Vol] 22 mmol/L 22 - 30 mmol/L [facility] Creatinine [Mass/Vol] 2.06 mg/dL High 0.73 - 1.22 mg/dL [facility] GFR/1.73 sq M.predicted among non-blacks MDRD (S/P/Bld) [Vol rate/Area] 33 mL/min/{1.73_m2} Low - PINF [facility] Comment on above: Estimated Glomerular Filtration Rate [...] not accurately reflect actual GFR. Glucose [Mass/Vol] 101 mg/dL High 74 - 99 mg/dL [facility] Comment on above: The [place] [employer] Association (ADA) provides guidance for [...] Standards of Medical Care in Diabetes 2016, [place] [employer]. Diabetes Care. 2016.39(Suppl 1). Interpretation and review of laboratory results Abnormal [facility] Potassium [Moles/Vol] 4.6 mmol/L 3.7 - 5.1 mmol/L [facility] Protein [Mass/Vol] 6.3 g/dL 6.3 - 8.0 g/dL [facility] Sodium [Moles/Vol] 140 mmol/L 136 - 144 mmol/L [facility] Urea nitrogen [Mass/Vol] 34 mg/dL High 9 - 24 mg/dL [facility] metabolic 2000 panelon 10-01-2024 Albumin [Mass/Vol] 3.9 g/dL Normal 3.9-4.9 [facility] Comment on above: Order Comment: Speci men Type: BLOOD SPECIMENOrdering Facility: [facility] Address: [address] [place] [address] Performed By: #### 2 4323-8 ####[facility]ITALNCLIA [id number] [place] [address] [place] ALP [Catalytic activity/Vol] 59 U/L Normal 38-113 [facility] Comment on above: Order Comment: Speci men Type: BLOOD SPECIMENOrdering Facility: [facility] Address: [address] [place] [address] Performed By: #### 2 4323-8 ####[facility]OSPITALLIA [id number] [place] [address] [place] ALT [Catalytic activity/Vol] 5 U/L Low 10-54 [facility] Comment on above: Order Comment: Speci men Type: BLOOD SPECIMENOrdering Facility: [facility] Address: [address] [place] [address] Performed By: #### 2 4323-8 ####[facility]ITALNCLIA [id number] [place] [address] [place] Anion gap [Moles/Vol] 10 mmol/L Normal 8-15 [facility] Comment on above: Order Comment: Speci men Type: BLOOD SPECIMENOrdering Facility: [facility] Address: [address] [place] [address] Performed By: #### 2 4323-8 ####[facility]ITALNCLIA [id number] [place] [address] [place] AST [Catalytic activity/Vol] 9 U/L Low 14-40 [facility] Comment on above: Order Comment: Speci men Type: BLOOD SPECIMENOrdering Facility: [facility] Address: [address] [place] [address] Performed By: #### 2 4323-8 ####[facility] JENNIFER MILLTOWNCLIA [id number] [place] [address] [place] Bilirubin [Mass/Vol] 0.3 mg/dL Normal 0.2-1.3 [facility] Comment on above: Order Comment: Speci men Type: BLOOD SPECIMENOrdering Facility: [facility] Address: [address] [place] [address] Performed By: #### 2 4323-8 ####[facility] MILLTOWRICLIA [id number] [place] [address] [place] Calcium [Mass/Vol] 9.0 mg/dL Normal 8.5-10.2 [facility] Comment on above: Order Comment: Speci men Type: BLOOD SPECIMENOrdering Facility: [facility] Address: [address] [place] [place] [address] Performed By: #### 2 4323-8 ####[facility] MILLKYEWNCLIA [id number] [place] [address] [place] Chloride [Moles/Vol] 108 mmol/L High 98-107 [facility] Comment on above: Order Comment: Speci men Type: BLOOD SPECIMENOrdering Facility: [facility] Address: [address] [place] [address] Performed By: #### 2 4323-8 ####[facility] JENNIFER MILLTOWNCLIA [id number] [place] [address] [place] CO2 [Moles/Vol] 22 mmol/L Normal 22-30 [facility] Comment on above: Order Comment: Speci men Type: BLOOD SPECIMENOrdering Facility: [facility] Address: [address] [place] [address] Performed By: #### 2 4323-8 ####[facility] MILLTOWNCLIA [id number] [place] [address] [place] Creatinine [Mass/Vol] 2.06 mg/dL High 0.73-1.22 [facility] Comment on above: Order Comment: Raul hutson Type: BLOOD SPECIMENOrdering Facility: [facility] Address: [address] [place] [address] Performed By: #### 2 4323-8 ####[facility] [id number] [place] [address] [place] eGFRcr SerPlBld CKD-EPI 2020 33 mL/min/1.73m??? Low >=60 [facility] Comment on above: Order Comment: Raul hutson Type: BLOOD SPECIMENOrdering Facility: [facility] Address: [address] [place] [place] [address] Result Comment: Amy mated Glomerular Filtration Rate [...] actual GFR. Performed By: #### 2 4323-8 ####[facility] [id number] [place] [address] [place] Glucose [Mass/Vol] 101 mg/dL High 74-99 [facility] Comment on above: Order Comment: Raul hutson Type: BLOOD SPECIMENOrdering Facility: [facility] Address: [address] [place], [place] [address] Result Comment: The [place] Diabetes [employer] (ADA) provides guidance for cutoff [...] Standards of Medical Care in Diabetes 2016, [place] [employer]. Diabetes Care. 2016.39(Suppl 1). Performed By: #### 2 4323-8 ####[facility] [id number] [place] [address] [place] Potassium [Moles/Vol] 4.6 mmol/L Normal 3.7-5.1 [facility] Comment on above: Order Comment: Speci men Type: BLOOD SPECIMENOrdering Facility: [facility] Address: [address] [place], [place] [address] Performed By: #### 2 4323-8 ####[facility] [id number] [place] [address] [place] Protein [Mass/Vol] 6.3 g/dL Normal 6.3-8.0 [facility] Comment on above: Order Comment: Speci men Type: BLOOD SPECIMENOrdering Facility: [facility] Address: [address] [place], [place] [address] Performed By: #### 2 4323-8 ####[facility] [id number] [place] [address] [place] Sodium [Moles/Vol] 140 mmol/L Normal 136-144 [facility] Comment on above: Order Comment: Speci men Type: BLOOD SPECIMENOrdering Facility: [facility] Address: [address] [place] [address] Performed By: #### 2 4323-8 ####[facility] [id number] [place] [address] [place] Urea nitrogen [Mass/Vol] 34 mg/dL High 9-24 [facility] Comment on above: Order Comment: Speci men Type: BLOOD SPECIMENOrdering Facility: [facility] Address: [address] [place], [place] [address] Performed By: #### 2 4323-8 ####[facility] JENNIFER MILLRADHALIA [id number] [place] [address] [place] Basic metabolic 2000 panelon 09-27-2024 Anion gap [Moles/Vol] 10 mmol/L Normal 8-15 [facility] Comment on above: Order Comment: Speci men Type: BLOOD SPECIMENOrdering Facility: [facility] Address: [address] [place] [address] Performed By: #### 2 4321-2 ####[facility] PANCHOA [id number] [place] [address] [place] Calcium [Mass/Vol] 9.1 mg/dL Normal 8.5-10.2 [facility] Comment on above: Order Comment: Speci men Type: BLOOD SPECIMENOrdering Facility: [facility] Address: [address] [place] [address] Performed By: #### 2 4321-2 ####[facility] PANCHOA [id number] [place] [address] [place] Chloride [Moles/Vol] 106 mmol/L Normal 98-107 [facility] Comment on above: Order Comment: Speci men Type: BLOOD SPECIMENOrdering Facility: [facility] Address: [address] [place] [address] Performed By: #### 2 4321-2 ####[facility] MILLKYEWNCLIA [id number] [place] [address] [place] CO2 [Moles/Vol] 23 mmol/L Normal 22-30 [facility] Comment on above: Order Comment: Speci men Type: BLOOD SPECIMENOrdering Facility: [facility] Address: [address] [place] [address] Performed By: #### 2 4321-2 ####[facility] [id number] [place] [address] [place] Creatinine [Mass/Vol] 2.69 mg/dL High 0.73-1.22 [facility] Comment on above: Order Comment: Raul hutson Type: BLOOD SPECIMENOrdering Facility: [facility] Address: [address] [place] [address] Performed By: #### 2 4321-2 ####[facility] [id number] [place] [address] [place] eGFRcr SerPlBld CKD-EPI 2020 24 mL/min/1.73m??? Low >=60 [facility] Comment on above: Order Comment: Raul hutson Type: BLOOD SPECIMENOrdering Facility: [facility] Address: [address] [place] [address] Result Comment: Amy mated Glomerular Filtration Rate [...] reflect actual GFR. Performed By: #### 2 4321-2 ####[facility] [id number] [place] [address] [place] Glucose [Mass/Vol] 94 mg/dL Normal 74-99 [facility] Comment on above: Order Comment: Raul hutson Type: BLOOD SPECIMENOrdering Facility: [facility] Address: [address] [place], [place] [address] Result Comment: The [place] [employer] (ADA) provides guidance for cutoff [...] Standards of Medical Care in Diabetes 2016, [place] [employer]. Diabetes Care. 2016.39(Suppl 1). Performed By: #### 2 4321-2 ####[facility] [id number] [place] [address] [place] Potassium [Moles/Vol] 5.3 mmol/L High 3.7-5.1 [facility] Comment on above: Order Comment: Raul hutson Type: BLOOD SPECIMENOrdering Facility: [facility] Address: [address] [place] [address] Performed By: #### 2 4321-2 ####[facility] [id number] [place] [address] [place] Sodium [Moles/Vol] 139 mmol/L Normal 136-144 [facility] Comment on above: Order Comment: Raul hutson Type: BLOOD SPECIMENOrdering Facility: [facility] Address: [address] [place] [address] Performed By: #### 2 4321-2 ####[facility] [id number] [place] [address] [place] Urea nitrogen [Mass/Vol] 41 mg/dL High 9-24 [facility] Comment on above: Order Comment: Raul hutson Type: BLOOD SPECIMENOrdering Facility: [facility] Address: [address] [place], [place] [address] Performed By: #### 2 4321-2 ####[facility]ITALLI [id number] [place] [address] [place] CNOVon 09-25-2024 CNOV Office Visit (RADTWS ) ABELARDO IVORY ([id number]) 1950 M Date Time Provider Department 09/25/24 10:15 AM LUIGI BANKS During your visit today, we recorded the following information about you: Temperature Pulse Blood pressure 97.5 degrees 56/minute 121/66 Shreya Grace RN 09/25/2024 10:39 AM Signed Radiation Therapy - Nursing Note (OTV) PATIENT NAME: Abelardo Ivory PATIENT September 25, 2024 [facility] FACILITY/LOCATION: [facility] NOTE TYPE: PROSTATE - MALE PELVIS Subjective Data I am still having that pain when I urinated and sometimes just hits gideon Additional Data Do you want to see a Pasting Inspector? No Status: Patient is male Stress Scale: On a scale of 0 to 10, what number best describes how much distress you have experienced in the past week?(0 being no distress and 10 being extreme distress) 2 Social work notified: Pt denied need to see social media manager at this time. Nursing Assessment Fatigue: increased fatigue over baseline but not altering normal activities Appetite: good Nutritional Intake: Regular oral intake. Weight Gain/Loss: No Ambulatory weight history: Last 6 Encounter Wt Readings: Date: Wt: 09/24/2024 68 kg (150 lb) 09/06/2024 69.2 kg (152 lb 9.6 oz) 09/05/2024 69.2 kg (152 lb 8 oz) 08/29/2024 70.8 kg (156 lb) 08/16/2024 70.9 kg (156 lb 6.4 oz) 08/02/2024 70.8 kg (156 lb) Nausea:None Vomiting: None Bowel Function: normal bowel movements Erythema/Hyperpigmentat ion:none Desquamation:none Rash:none Skin Care: Aquaphor Skin Sensation: Within Normal Limits Focused Assessment PROSTATE - MALE PELVIS: Rectal bleeding: No. Rectal pain: No. Bladder function: painful urination. Urinary frequency (D/N): every 2-3 hours/up twice at night. 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 COURSE: definitive and concurrent chemotherapy (Mitomycin 5-FU) AREA TREATED: Bladder CURRENT DOSE: 550 cGy in 2 fx PLANNED DOSE: 5500 cGy in 20 fx SUBJECTIVE: He is doing well without any specific new complaints related to radiation treatment. He has bladder pain since his TURBT without significant acute changes. Previous urine culture was negative for UTI. EXAM: KPS: 90 General Appearance: Alert and oriented. No acute distress. IMAGING/LAB RESULTS: None Treatment chart checked: Yes Patient treatment site reviewed and verified:Yes CBCTs reviewed and current:Yes Medications started: None ASSESSMENT/PLAN: Clinically stable. No significant treatment-related side effects. Continue radiation treatment as planned. 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 - phenazopyridine (PYRIDIUM) 100 mg tablet Take 100 mg by mouth three times a day. - cholecalciferol, vitamin D3, (VITAMIN D-3) 10 mcg (400 unit) cap Take 400 Units by mouth once daily. - amLODIPine (NORVASC) 5 mg tablet Take 5 mg by mouth once daily. - cdwyvzxioov-dfunaxmwm-v ilanter (TRELEGY ELLIPTA) 200-62.5-25 mcg inhalation powder [...] 12 hours. Problem List As Of Date 09/25/2024 Noted Resolved CONTUSION OF FOREARM [S50.10XA] 08/09/2005 [...] rupture*02/06/2019 Discharge planning issues [Z75.8] 02/09/2019 Preop te (more content not included)... Normal [facility] Ale 09-25-2024 VICTORIANO Telephone (VAIBHAV) ABELARDO IVORY ([id number]) 1950 M Date Time Provider Department 09/25/24 WOLF PALM During your visit today, we recorded the following information about you: Wolf Palm RN 09/25/2024 11:07 AM Signed CYCLE 1/DAY 1 POST TREATMENT CALL Today's date: September 25, 2024 Treatment Regimen: 5FU/Mitomycin w/XRT C1D1 Date: 09/24/24 Patient in follow up with Dr. Banks. Needs refill on Tramadol. Requested Prescriptions Pending Prescriptions Disp Refills traMADol (ULTRAM) 50 mg tablet 14 tablet 0 Sig: Take 1 tablet by mouth every 12 hours as needed for pain for up to 7 days. ANGELA Garza Paul A, DO 09/25/2024 1:22 PM Signed He will have to sign a narcotic agreement form when he is here tomorrow. I will have one ready for him to sign. DO Mini Valdez Kara, LPN 09/25/2024 1:37 PM Signed Will make rad/onc nurse know as well. Has radiation tx tomorrow. SUDHA Hernández Cathleen, RN 09/25/2024 2:11 PM Signed Call to patient, aware the Tramadol Rx sent. He is also aware that he needs to sign a Narcotic agreement form when here tomorrow and to stop at nursing station to inquire. Also reviewed dosing and ok to alternate Tramadol with Tylenol. Reviewed not to take an extra Tylenol IF he has a fever and during the 1 hour recheck time per instructions on handout. Patient states he understands and denies further needs/concerns. Nazanin Palm RN Allergies As of Date: 09/25/2024 (No Known Allergies) Date Reviewed: 09/25/2024 Reviewed by: Shreya Grace RN - Fully Assessed Reason for Visit: Care Coordination [3491] Cmt: CYCLE 1/DAY 1 POST TREATMENT CALL Visit Diagnoses:Malignant neoplasm of overlapping sites of bladder (HCC) [C67.8] Malignant neoplasm of urinary bladder, unspecified site (HCC) [C67.9] Order(s):traMADol (ULTRAM) 50 mg tabletTake 1 tablet by mouth every 12 hours as needed for pain for up to 7 days.Disp: 14 tabletRfl: 0 Prescriptions as of 09/26/2024 - traMADol (ULTRAM) 50 mg tablet Take 1 tablet by mouth every 12 hours as needed for pain for up to 7 days. - ondansetron (ZOFRAN) 8 mg tablet Take 1 tablet by mouth every 8 hours as needed (For chemotherapy induced nausea and vomiting.). - phenazopyridine (PYRIDIUM) 100 mg tablet Take 100 mg by mouth three times a day. - cholecalciferol, vitamin D3, (VITAMIN D-3) 10 mcg (400 unit) cap Take 400 Units by mouth once daily. - amLODIPine (NORVASC) 5 mg tablet Take 5 mg by mouth once daily. - eppdydrulhy-yorecclrr-j ilanter (TRELEGY ELLIPTA) 200-62.5-25 mcg inhalation powder [...] 12 hours. Problem List As Of Date 09/25/2024 Noted Resolved CONTUSION OF FOREARM [S50.10XA] 08/09/2005 [...] Malignant neoplasm of urinary bladder (HCC) [C6*09/05/2024 Prescriptions ordered this encounter Disp Refills Start End TRAMADOL 50 MG TABLET 14 t* 0 09/25/2024 10/02/2024 Route: PO Sig: Take 1 tablet by mouth every 12 hours as needed for pain for u (more content not included)... Normal [facility] CBC W Auto Differential pane l (Bld)on 09-24-2024 Basophils (Bld) [#/Vol] 0.04 10*3/uL [facility] Basophils/100 WBC (Bld) 0.6 % C [facility] Differential cell count method Nom (Bld) Auto [facility] Eosinophils (Bld) [#/Vol] 0.12 10*3/uL [facility] Eosinophils/100 WBC (Bld) 1.8 % [facility] Erythrocyte distribution width (RBC) [Ratio] 14.2 % 11.5 - 15.0 % [facility] Hematocrit (Bld) [Volume fraction] 35.6 % Low 39.0 - 51.0 % [facility] Hemoglobin (Bld) [Mass/Vol] 11.5 g/dL Low 13.0 - 17.0 g/dL [facility] Immature granulocytes (Bld) [#/Vol] [facility] Immature granulocytes/100 WBC (Bld) 0.2 % [facility] Interpretation and review of laboratory results Abnormal [facility] Lymphocytes (Bld) [#/Vol] 1.81 10*3/uL [facility] Lymphocytes/100 WBC (Bld) 27.8 % [facility] MCH (RBC) [Entitic mass] 30.7 pg 26.0 - 34.0 pg [facility] MCHC (RBC) [Mass/Vol] 32.3 g/dL 30.5 - 36.0 g/dL [facility] MCV (RBC) [Entitic vol] 94.9 fL 80.0 - 100.0 fL [facility] Monocytes (Bld) [#/Vol] 0.57 10*3/uL [facility] Monocytes/100 WBC (Bld) 8.8 % [facility] Neutrophils (Bld) [#/Vol] 3.95 10*3/uL [facility] Neutrophils/100 WBC (Bld) 60.8 % [facility] Nucleated RBC (Bld) [#/Vol] [facility] Nucleated RBC/100 WBC (Bld) [Ratio] 0.0 % /100 WBC [facility] Platelet mean volume (Bld) [Entitic vol] 8.2 fL Low 9.0 - 12.7 fL [facility] Platelets (Bld) [#/Vol] 151 10*3/uL [facility] RBC (Bld) [#/Vol] 3.75 10*6/uL Low 4.20 - 6.0 0 m/uL [facility] WBC (Bld) [#/Vol] 6.50 10*3/uL [facility] Basophils (Bld) [#/Vol] 0.04 10*3/uL Normal <0.11 [facility] Comment on above: Order Comment: Speci men Type: BLOOD SPECIMENOrdering Facility: [facility] Address: [address] [place] [address] Performed By: #### 5 7021-8 ####[facility] [id number] [address] OF [facility] Basophils/100 WBC (Bld) 0.6 % Normal [facility] Comment on above: Order Comment: Speci men Type: BLOOD SPECIMENOrdering Facility: [facility] Address: [address] [place] [address] Performed By: #### 5 7021-8 ####[facility]ITALNCLIA [id number] [place] [address] [place] Differential cell count method Nom (Bld) Auto Normal [facility] Comment on above: Order Comment: Speci men Type: BLOOD SPECIMENOrdering Facility: [facility] Address: [address] [place] [address] Performed By: #### 5 7021-8 ####[facility] [id number] [place] [address] [place] Eosinophils (Bld) [#/Vol] 0.12 10*3/uL Normal <0.46 [facility] Comment on above: Order Comment: Speci men Type: BLOOD SPECIMENOrdering Facility: [facility] Address: [address] [place] [address] Performed By: #### 5 7021-8 ####[facility] [id number] [place] [address] [place] Eosinophils/100 WBC (Bld) 1.8 % Normal [facility] Comment on above: Order Comment: Speci men Type: BLOOD SPECIMENOrdering Facility: [facility] Address: [address] [place] [address] Performed By: #### 5 7021-8 ####[facility]ITALRICMOUNT[facility] [id number] [place] [address] [place] Erythrocyte distribution width (RBC) [Ratio] 14.2 % Normal 11.5-15.0 [facility] Comment on above: Order Comment: Speci men Type: BLOOD SPECIMENOrdering Facility: [facility] Address: [address] [place] [address] Performed By: #### 5 7021-8 ####[facility]ITALNCLI [id number] [place] [address] [place] Hematocrit (Bld) [Volume fraction] 35.6 % Low 39.0-51.0 [facility] Comment on above: Order Comment: Speci men Type: BLOOD SPECIMENOrdering Facility: [facility] Address: [address] [place] [address] Performed By: #### 5 7021-8 ####[facility]ITALNCMOUNT[facility] [id number] [place] [address] [place] Hemoglobin (Bld) [Mass/Vol] 11.5 g/dL Low 13.0-17.0 [facility] Comment on above: Order Comment: Speci men Type: BLOOD SPECIMENOrdering Facility: [facility] Address: [address] [place] [address] Performed By: #### 5 7021-8 ####[facility]ITALNCM[facility] [id number] [place] [address] [place] Immature granulocytes (Bld) [#/Vol] 10*3/uL Normal <0.10 [facility] Comment on above: Order Comment: Speci men Type: BLOOD SPECIMENOrdering Facility: [facility] Address: [address] [place] [address] Performed By: #### 5 7021-8 ####[facility]OSPITALNCA [id number] [place] [address] [place] Immature granulocytes/100 WBC (Bld) 0.2 % Normal [facility] Comment on above: Order Comment: Speci men Type: BLOOD SPECIMENOrdering Facility: [facility] Address: [address] [place] [address] Performed By: #### 5 7021-8 ####[facility]ITALNCLIA [id number] [place] [address] [place] Lymphocytes (Bld) [#/Vol] 1.81 10*3/uL Normal 1.00-4.00 [facility] Comment on above: Order Comment: Speci men Type: BLOOD SPECIMENOrdering Facility: [facility] Address: [address] [place] [address] Performed By: #### 5 7021-8 ####[facility] ANGELICASHIRINLIA [id number] [place] [address] [place] Lymphocytes/100 WBC (Bld) 27.8 % Normal [facility] Comment on above: Order Comment: Speci men Type: BLOOD SPECIMENOrdering Facility: [facility] Address: [address] [place] [address] Performed By: #### 5 7021-8 ####[facility] HOSPITALRICGREGORIO [id number] [place] [address] [place] MCH (RBC) [Entitic mass] 30.7 pg Normal 26.0-34.0 [facility] Comment on above: Order Comment: Speci men Type: BLOOD SPECIMENOrdering Facility: [facility] Address: [address] [place] [address] Performed By: #### 5 7021-8 ####[facility] [id number] [place] [address] [place] MCHC (RBC) [Mass/Vol] 32.3 g/dL Normal 30.5-36.0 [facility] Comment on above: Order Comment: Speci men Type: BLOOD SPECIMENOrdering Facility: [facility] Address: [address] [place] [address] Performed By: #### 5 7021-8 ####[facility]ITALLIA [id number] [place] [address] [place] MCV (RBC) [Entitic vol] 94.9 fL Normal 80.0-100.0 C [facility] Comment on above: Order Comment: Speci men Type: BLOOD SPECIMENOrdering Facility: [facility] Address: [address] [place] [address] Performed By: #### 5 7021-8 ####[facility] [id number] [place] [address] [place] Monocytes (Bld) [#/Vol] 0.57 10*3/uL Normal <0.87 [facility] Comment on above: Order Comment: Speci men Type: BLOOD SPECIMENOrdering Facility: [facility] Address: [address] [address] Performed By: #### 5 7021-8 ####[facility] ERWKSLIA [id number] [place] [address] [place] Monocytes/100 WBC (Bld) 8.8 % Normal [facility] Comment on above: Order Comment: Speci men Type: BLOOD SPECIMENOrdering Facility: [facility] Address: [address] [place] [address] Performed By: #### 5 7021-8 ####[facility]PITALNCLIA [id number] [place] [address] [place] Neutrophils (Bld) [#/Vol] 3.95 10*3/uL Normal 1.45-7.50 [facility] Comment on above: Order Comment: Speci men Type: BLOOD SPECIMENOrdering Facility: [facility] Address: [address] [place] [address] Performed By: #### 5 7021-8 ####[facility]OSPITALLIA [id number] [place] [address] [place] Neutrophils/100 WBC (Bld) 60.8 % Normal [facility] Comment on above: Order Comment: Speci men Type: BLOOD SPECIMENOrdering Facility: [facility] Address: [address] [place] [address] Performed By: #### 5 7021-8 ####[facility]PITALNCLIA [id number] [place] [address] [place] Nucleated RBC (Bld) [#/Vol] 10*3/uL Normal <0.01 [facility] Comment on above: Order Comment: Speci men Type: BLOOD SPECIMENOrdering Facility: [facility] Address: [address] [place] [address] Performed By: #### 5 7021-8 ####[facility] JENNIFER JOAQUINNCSATISH [id number] [place] [address] [place] Nucleated RBC/100 WBC (Bld) [Ratio] 0.0 /100 WBC Normal [facility] Comment on above: Order Comment: Speci men Type: BLOOD SPECIMENOrdering Facility: [facility] Address: [address] [place] [address] Performed By: #### 5 7021-8 ####[facility] HOSPITALNCSATISH [id number] [place] [address] [place] Platelet mean volume (Bld) [Entitic vol] 8.2 fL Low 9.0-12.7 [facility] Comment on above: Order Comment: Speci men Type: BLOOD SPECIMENOrdering Facility: [facility] Address: [address] [place] [address] Performed By: #### 5 7021-8 ####[facility]PITALNCLIA [id number] [place] [address] [place] Platelets (Bld) [#/Vol] 151 10*3/uL Normal 150-400 [facility] Comment on above: Order Comment: Speci men Type: BLOOD SPECIMENOrdering Facility: [facility] Address: [address] [place] [address] Performed By: #### 5 7021-8 ####[facility]PITALNCLIA [id number] [place] [address] [place] RBC (Bld) [#/Vol] 3.75 10*6/uL Low 4.20-6.00 [facility] Comment on above: Order Comment: Speci men Type: BLOOD SPECIMENOrdering Facility: [facility] Address: [address] [place], [place] [address] [id number] Performed By: #### 5 7021-8 ####[facility] JENNIFER NUÑEZNCLIA [id number] [place] [address] [place] WBC (Bld) [#/Vol] 6.50 10*3/uL Normal 3.70-11.00 [facility] Comment on above: Order Comment: Speci men Type: BLOOD SPECIMENOrdering Facility: [facility] Address: [address] [facility] [place] [id number] Performed By: #### 5 7021-8 ####[facility] JENNIFER NUÑEZNCLIA [id number] [address] OF [place] CNPMalina 09-24-2024 CNPN Telephone (HEMAWS) ABELARDO IVORY ([id number]) 1950 M Date Time Provider Department 09/24/24 LAKEISHA RIVERS During your visit today, we recorded the following information about you: Shawna Prakash RN 09/24/2024 11:[address] Rivers, Schedule him for BMP with possible hydration this coming . Pt will be in for radiation at 0900. Please schedule for port/picc draw and possible hydration. Thank you. Leonardo Moses 09/24/2024 11:57 AM Signed This has been scheduled. Leonardo Moses Allergies As of Date: 09/24/2024 (No Known Allergies) Date Reviewed: 09/24/2024 Reviewed by: Shawna Prakash, ANGELA - Fully Assessed Reason for Visit: Appointment [186] Prescriptions as of 09/24/2024 - ondansetron (ZOFRAN) 8 mg tablet Take 1 tablet by mouth every 8 hours as needed (For chemotherapy induced nausea and vomiting.). - phenazopyridine (PYRIDIUM) 100 mg tablet Take 100 mg by mouth three times a day. - cholecalciferol, vitamin D3, (VITAMIN D-3) 10 mcg (400 unit) cap Take 400 Units by mouth once daily. - amLODIPine (NORVASC) 5 mg tablet Take 5 mg by mouth once daily. - rzawscclcrc-azqvmzyea-g ilanter (TRELEGY ELLIPTA) 200-62.5-25 mcg inhalation powder [...] 0.5 tablets by mouth every 12 hours. Facility-Administered Medications as of 09/24/2024 - fluorouracil (ADRUCIL) 4,500 mg in NaCl 0.9% 102 mL in empty bag - NaCl 0.9% iv infusion - diphenhydrAMINE 50 mg injection (BENADRYL) - hydrocortisone sodium succinate (PF) 100 mg injection (Solu-CORTEF) - EPINEPHrine HCl (PF) 1 mg/mL (1 mL) 0.3 mg injection Problem List As Of Date 09/24/2024 Noted Resolved CONTUSION OF FOREARM [S50.10XA] 08/09/2005 [...] urinary bladder (HCC) [C6*09/05/2024 Encounter Status:Closed by LEONARDO MOSES on 09/24/24 Normal [facility] Comprehensive metabolic 2000 panelOrdered By: Rissa Browning on 09-24-2024 Albumin [Mass/Vol] 4.2 g/dL 3.9 - 4.9 g/dL [facility] ALP [Catalytic activity/Vol] 58 U/L 38 - 113 U/L [facility] ALT [Catalytic activity/Vol] 5 U/L Low 10 - 54 U/L [facility] Anion gap [Moles/Vol] 10 mmol/L 8 - 15 mmol/L [facility] AST [Catalytic activity/Vol] 10 U/L Low 14 - 40 U/L [facility] Bilirubin [Mass/Vol] 0.2 mg/dL 0.2 - 1 .3 mg/dL [facility] Calcium [Mass/Vol] 9.3 mg/dL 8.5 - 10. 2 mg/dL [facility] Chloride [Moles/Vol] 107 mmol/L 98 - 10 7 mmol/L [facility] CO2 [Moles/Vol] 23 mmol/L 22 - 30 mmol/L [facility] Creatinine [Mass/Vol] 2.14 mg/dL High 0.73 - 1.22 mg/dL [facility] GFR/1.73 sq M.predicted among non-blacks MDRD (S/P/Bld) [Vol rate/Area] 32 mL/min/{1.73_m2} Low - PINF [facility] Comment on above: Estimated Glomerular Filtration Rate [...] not accurately reflect actual GFR. Glucose [Mass/Vol] 107 mg/dL High 74 - 99 mg/dL [facility] Comment on above: The [place] [employer] (ADA) provides guidance for [...] Standards of Medical Care in Diabetes 2016, [place] [employer]. Diabetes Care. 2016.39(Suppl 1). Interpretation and review of laboratory results Abnormal [facility] Potassium [Moles/Vol] 4.8 mmol/L 3.7 - 5.1 mmol/L [facility] Protein [Mass/Vol] 6.7 g/dL 6.3 - 8.0 g/dL [facility] Sodium [Moles/Vol] 140 mmol/L 136 - 144 mmol/L [facility] Urea nitrogen [Mass/Vol] 32 mg/dL High 9 - 24 mg/dL [facility] Comprehensive metabolic 2000 panelon 09-24-2024 Albumin [Mass/Vol] 4.2 g/dL Normal 3.9-4.9 [facility] Comment on above: Order Comment: Speci men Type: BLOOD SPECIMENOrdering Facility: [facility] Address: [address] [place] [address] Performed By: #### 2 4323-8 ####[facility] HOSPITALLIA [id number] [place] [address] [place] ALP [Catalytic activity/Vol] 58 U/L Normal 38-113 [facility] Comment on above: Order Comment: Speci men Type: BLOOD SPECIMENOrdering Facility: [facility] Address: [address] [place] [address] Performed By: #### 2 4323-8 ####[facility] PARKA [id number] [place] [address] [place] ALT [Catalytic activity/Vol] 5 U/L Low 10-54 [facility] Comment on above: Order Comment: Speci men Type: BLOOD SPECIMENOrdering Facility: [facility] Address: [address] [place] [place] [address] Performed By: #### 2 4323-8 ####[facility]PITALNCLI [id number] [place] [address] [place] Anion gap [Moles/Vol] 10 mmol/L Normal 8-15 [facility] [facility] Comment on above: Order Comment: Speci men Type: BLOOD SPECIMENOrdering Facility: [facility] Address: [address] [place] [address] Performed By: #### 2 4323-8 ####[facility]PITALNCLIA [id number] [place] [address] [place] AST [Catalytic activity/Vol] 10 U/L Low 14-40 [facility] Comment on above: Order Comment: Speci men Type: BLOOD SPECIMENOrdering Facility: [facility] Address: [address] [place] [address] Performed By: #### 2 4323-8 ####[facility] ANGELICASHIRINGREGORIOA [id number] [place] [address] [place] Bilirubin [Mass/Vol] 0.2 mg/dL Normal 0.2-1.3 [facility] Comment on above: Order Comment: Speci men Type: BLOOD SPECIMENOrdering Facility: [facility] Address: [address] [place] [address] Performed By: #### 2 4323-8 ####[facility] HOSPITALRICLIA [id number] [place] [address] [place] Calcium [Mass/Vol] 9.3 mg/dL Normal 8.5-10.2 [facility] Comment on above: Order Comment: Speci men Type: BLOOD SPECIMENOrdering Facility: [facility] Address: [address] [place] [address] Performed By: #### 2 4323-8 ####[facility]OSPITALHOLLYA [id number] [place] [address] [place] Chloride [Moles/Vol] 107 mmol/L Normal 98-107 [facility] Comment on above: Order Comment: Speci men Type: BLOOD SPECIMENOrdering Facility: [facility] Address: [address] [place] [address] Performed By: #### 2 4323-8 ####[facility]OSPITALNCLIA [id number] [place] [address] [place] CO2 [Moles/Vol] 23 mmol/L Normal 22-30 [facility] Comment on above: Order Comment: Speci men Type: BLOOD SPECIMENOrdering Facility: [facility] Address: [address] [place] [address] Performed By: #### 2 4323-8 ####[facility] ERWNCLIA [id number] [place] [address] [place] Creatinine [Mass/Vol] 2.14 mg/dL High 0.73-1.22 [facility] Comment on above: Order Comment: Raul hutson Type: BLOOD SPECIMENOrdering Facility: [facility] Address: [address] [place] [address] Performed By: #### 2 4323-8 ####[facility]ITALNCM[facility] [id number] [place] [address] [place] eGFRcr SerPlBld CKD-EPI 2020 32 mL/min/1.73m??? Low >=60 [facility] Comment on above: Order Comment: Raul hutson Type: BLOOD SPECIMENOrdering Facility: [facility] Address: [address] [place] [address] Result Comment: Amy mated Glomerular Filtration Rate [...] actual GFR. Performed By: #### 2 4323-8 ####[facility]ITALNCLIA [id number] [place] [address] [place] Glucose [Mass/Vol] 107 mg/dL High 74-99 [facility] Comment on above: Order Comment: Raul hutson Type: BLOOD SPECIMENOrdering Facility: [facility] Address: [address] [place] [address] Result Comment: The [place] [employer] (ADA) provides guidance for cutoff [...] Standards of Medical Care in Diabetes 2016, [place] [employer]. Diabetes Care. 2016.39(Suppl 1). Performed By: #### 2 4323-8 ####[facility] HOSPITALLIA [id number] [place] [address] [place] Potassium [Moles/Vol] 4.8 mmol/L Normal 3.7-5.1 [facility] Comment on above: Order Comment: Speci men Type: BLOOD SPECIMENOrdering Facility: [facility] Address: [address] [place] [address] Performed By: #### 2 4323-8 ####[facility] [id number] [place] [address] [place] Protein [Mass/Vol] 6.7 g/dL Normal 6.3-8.0 [facility] Comment on above: Order Comment: Speci men Type: BLOOD SPECIMENOrdering Facility: [facility] Address: [address] [place] [address] Performed By: #### 2 4323-8 ####[facility] [id number] [place] [address] [place] Sodium [Moles/Vol] 140 mmol/L Normal 136-144 [facility] Comment on above: Order Comment: Speci men Type: BLOOD SPECIMENOrdering Facility: [facility] Address: [address] [place] [address] Performed By: #### 2 4323-8 ####[facility] [id number] [place] [address] [place] Urea nitrogen [Mass/Vol] 32 mg/dL High 9-24 [facility] Comment on above: Order Comment: Speci men Type: BLOOD SPECIMENOrdering Facility: [facility] Address: [facility] [place] [id number] Performed By: #### 2 4323-8 ####[facility] JENNIFER ZHOU [id number] [place] [id number] [place] CT ABD/PEL WO IVCONon 2024 CT ABD/PEL WO IVCON * * *Final Report* * * DATE OF EXAM: Sep 18 2024 9:19AM [facility] 0531 - CT ABD/PEL WO IVCON / [...] and hydroureter. Small retroperitoneal nodes are stable. Slabbing Machine Operator[facility] Transcribe Date/Time: Sep 19 2024 9:51A Dictated by : DEANNA RAMIREZ MD This examination was interpreted and the report reviewed and electronically signed by: DEANNA RAMIREZ MD on Sep 19 2024 10:05AM EST [id number] Normal [facility] 09-12-2024 [facility] Telephone (VAIBHAV) ABELARDO IVORY ([id number]) 1950 M Date Time Provider Department 09/12/24 MATTHEW GU During your visit today, we recorded the following information about you: Matthew Gu RN 09/12/2024 11:11 AM Signed Completed chemo education. No antimeric on file, pended [employer]kristian. C/o pain. Pain assessment completed. Patient is [...] Dr. Rivers's response and he stated understanding. 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 - ercbojmpubf-cccybpytc-j ilanter (TRELEGY ELLIPTA) 200-62.5-25 mcg inhalation powder [...] 02/14/2019 Thrombocytopenia (more content not included)... [facility] ([id number]) 1950 M Date Time Provider Department 09/12/24 ANTONI CARMICHAEL During your visit today, we recorded the following information about you: Antoni Carmichael LISW 09/12/2024 2:15 PM Signed PSYCHOSOCIAL SCREENING ASSESSMENT Date of Service: September 12, 2024 Abelardo Ivory is a 74 year old male being seen for initial social work assessment. Diagnosis: Malignant neoplasm of urinary bladder, unspecified site New Primary Oncologist: Lakeisha Rivers DO Radiation Oncologist: Luigi Banks MD Goals of Care: Palliative care Today's visit includes: self/patient Family History of Cancer: Brother and Father (unable to recall types) SUPPORT NETWORK: Social Connections: Not on file Marital status: Parent(s): Mother is and Father is Child/Children: Yes. How many? 5 coronary care unit nurse arrangements needed: No Siblings: 2 sisters and 1 brother Grandchild(kathleen): a bunch Home Health Provider: No Community Services: No Zeenat Identified: No Orthodoxy/Spirituality: Unknown Are these practices or beliefs that may affect or influence treatment? Unknown EMPLOYMENT/FINANCIAL/HE ALTH INSURANCE: Employment: Retired Income source: Social Security and Group Home Pension Insurance: Medicare with co-insurance Prescription coverage: Yes Is the patient appropriate for referral to [facility] COBRA Assistance program? No Financial Distress: No : [...] Living Will: Yes Scanned into EPIC: Yes, 2019 Health Care Durable Power of Panel Machine Setter: Yes Scanned into EPIC: No, pt reports he will get a copy of this document from [facility] at his upcoming appointment Guardianship: No Scanned [...] and h (more content not included)... Normal [facility] CNNURSEon 09-07-2024 [facility] Nurse Visit (RADTWS) ABELARDO IVORY ([id number]) 1950 M Date Time Provider Department 09/07/24 11:00 AM [facility] During your visit today, we recorded the following information about you: Unruly Diaz RN 09/07/2024 10:59 AM Signed Radiation Therapy - Patient Education Note PATIENT NAME: Abelardo Ivory PATIENT September 07, 2024 [facility] FACILITY/LOCATION: [place] READINESS TO LEARN Cognitive Ability: Alert and [...] 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 Patient has an Onbody or Implanted device: [...] 5 mg by mouth once daily. - oqufejwrjsu-vuhyzcjbl-i ilanter (TRELEGY ELLIPTA) 200-62.5-25 mcg inhalation powder [...] Encounter Status:Closed by UNRULY DIAZ on 09/07/24 [facility] US KIDNEY/BLADDERon 09-08-19 US KIDNEY/BLADDER * * *Final Report* * * DATE OF EXAM: Sep 07 2024 12:20PM [facility] 1055 - US KIDNEY/BLADDER / PROCEDURE REASON: [...] irregular wall thickening secondary to known neoplasm. Slabbing Machine Operator: JESUS ALBERTO Transcribe Date/Time: Sep 07 2024 12:38P Dictated by : HAYLEE STARKEY DO This examination was interpreted and the report reviewed and electronically signed by: HAYLEE STARKEY DO on Sep 07 2024 12:42PM EST [id number] Normal [facility] US Kidney - bilateral and Ur inary bladderon 09-07-2024 Radiology Study observation (narrative) [facility] IMPRESSION: Mild RIGHT and moderate LEFT hydronephrosis. 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 Slabbing Machine Operator: JESUS ALBERTO Transcribe Date/Time: Sep 07 2024 12:38P Dictated by : HAYLEE STARKEY DO This examination was interpreted and the report reviewed and electronically signed by: HAYLEE STARKEY DO on Sep 07 2024 12:42PM EST DIVISION OF RADIOLOGY * * *Final Report* * * DATE OF EXAM: Sep 07 2024 12:20PM [facility] 1055 - US KIDNEY/BLADDER / PROCEDURE REASON: [...] to known neoplasm. DIVISION OF RADIOLOGY Provider, [facility] - 09/07/2024 * * *Final Report* * [...] irregular wall thickening secondary to known neoplasm. Slabbing Machine Operator: JESUS ALBERTO Transcribe Date/Time: Sep 07 2024 12:38P Dictated by : HAYLEE STARKEY DO This examination was interpreted and the report reviewed and electronically signed by: HAYLEE STARKEY DO on Sep 07 2024 12:42PM [facility] US Kidney - bilateral and Ur inary bladderOrdered By: Ccf Provider on 09-07-2024 [facility] CNOVon 09-06-2024 CNOV Office Visit (RADTWS ) ABELARDO IVORY ([id number]) 1950 M Date Time Provider Department 09/06/24 10:30 AM LUIGI BANKS During your visit today, we recorded the following information about you: Temperature Pulse Respiration Blood pressure 97.7 degrees 74/minute 15/minute 136/63 Weight 69.2 kg Unrluy Diaz RN 09/14/2024 11:12 AM Signed Radiation Therapy - Nursing Note (Consult) PATIENT NAME: Abelardo Ivory PATIENT September 06, 2024 [facility] FACILITY/LOCATION: [place] Chief Complaint: consult Reason for visit: Consult. Referring physician: Internal provider Dr Rivers Subjective Data: see pain assessment Additional Data Do you want to see a Pasting Inspector? No Are you interested in information about fertility? No Status: Patient is male Stress Scale: On a scale of 0 to 10, what number best describes how much distress you have experienced in the past week?(0 being no distress and 10 being extreme distress) 3 Social work notified: no SIGNED by: Unruly Diaz, Luigi Ha MD 09/14/2024 11:12 AM Signed Radiation Oncology - New Patient/Consult Note PATIENT NAME: Abelardo Ivory PATIENT REQUESTING PROVIDER: Dr. Lakeisha Rivers DIAGNOSIS: Clinical stage II, cT2 cN0, [...] Take 5 mg by mouth once daily. pgfiqzcovxn-fnczaqcxp-k ilanter (TRELEGY ELLIPTA) 200-62.5-25 mcg inhalation powder [...] Asthma S (more content not included)... Normal [facility] CNPNon 09-06-2024 CNPN Telephone (UROLAE) ABELARDO IVORY ([id number]) 1950 M Date Time Provider Department 09/06/24 STACY GAUTHIER During your visit today, we recorded the following information about you: Stacy Gauthier MD 09/06/2024 7:[address] Rivers ordered a left perc tube placement- can you find out where he's having it done, want to add on left antegrade stent placement at same time- MD Avni Johnson Margaret 09/06/2024 9:12 AM Signed Spoke with [...] 5 mg by mouth once daily. - ufkoqabwfsx-bwfhhcjhn-o ilanter (TRELEGY ELLIPTA) 200-62.5-25 mcg inhalation powder [...] Encounter Status:Closed by STACY GAUTHIER on 09/06/24 [facility] CBC W Auto Differential pane l (Bld)on 09-05-2024 Basophils (Bld) [#/Vol] 0.05 10*3/uL [facility] Basophils/100 WBC (Bld) 0.7 % [facility] Differential cell count method Nom (Bld) Auto [facility] Eosinophils (Bld) [#/Vol] 0.23 10*3/uL [facility] Eosinophils/100 WBC (Bld) 3.1 % [facility] Erythrocyte distribution width (RBC) [Ratio] 13.4 % 11.5 - 15.0 % [facility] Hematocrit (Bld) [Volume fraction] 40 % 39.0 - 51.0 % [facility] Hemoglobin (Bld) [Mass/Vol] 12.7 g/dL Low 13.0 - 17.0 g/dL [facility] Immature granulocytes (Bld) [#/Vol] [facility] Immature granulocytes/100 WBC (Bld) 0.3 % [facility] Interpretation and review of laboratory results Abnormal [facility] Lymphocytes (Bld) [#/Vol] 2.43 10*3/uL [facility] Lymphocytes/100 WBC (Bld) 32.7 % [facility] MCH (RBC) [Entitic mass] 29.9 pg 26.0 - 34.0 pg [facility] MCHC (RBC) [Mass/Vol] 31.8 g/dL 30.5 - 36.0 g/dL [facility] MCV (RBC) [Entitic vol] 94.1 fL 80.0 - 100.0 fL [facility] Monocytes (Bld) [#/Vol] 0.56 10*3/uL [facility] Monocytes/100 WBC (Bld) 7.5 % [facility] Neutrophils (Bld) [#/Vol] 4.15 10*3/uL [facility] Neutrophils/100 WBC (Bld) 55.7 % [facility] Nucleated RBC (Bld) [#/Vol] [facility] Nucleated RBC/100 WBC (Bld) [Ratio] 0 % /100 WBC [facility] Platelet mean volume (Bld) [Entitic vol] 8.3 fL Low 9.0 - 12.7 fL [facility] Platelets (Bld) [#/Vol] 207 10*3/uL [facility] RBC (Bld) [#/Vol] 4.25 10*6/uL 4.20 - 6.0 0 m/uL [facility] WBC (Bld) [#/Vol] 7.44 10*3/uL [facility] Basophils (Bld) [#/Vol] 0.05 10*3/uL Normal <0.11 [facility] Comment on above: Order Comment: Speci men Type: BLOOD SPECIMENOrdering Facility: [facility] Address: [address] [place] [address] Performed By: #### 5 7021-8 ####[facility] JENNIFER [facility] HE[facility] SERVICESSATISH [id number] [place] [id number] [place] Basophils/100 WBC (Bld) 0.7 % Normal [facility] Comment on above: Order Comment: Speci men Type: BLOOD SPECIMENOrdering Facility: [facility] Address: [address] [place] [address] Performed By: #### 5 7021-8 ####[facility] ANGELICAELIZA [id number] [place] [address] [place] Differential cell count method Nom (Bld) Auto Normal [facility] Comment on above: Order Comment: Speci men Type: BLOOD SPECIMENOrdering Facility: [facility] Address: [address] [place] [address] Performed By: #### 5 7021-8 ####[facility] HOSPITALRICGREGORIOA [id number] [place] [address] [place] Eosinophils (Bld) [#/Vol] 0.23 10*3/uL Normal <0.46 [facility] Comment on above: Order Comment: Speci men Type: BLOOD SPECIMENOrdering Facility: [facility] Address: [address] [place] [address] Performed By: #### 5 7021-8 ####[facility] P[facility] [id number] [place] [address] [place] Eosinophils/100 WBC (Bld) 3.1 % Normal [facility] Comment on above: Order Comment: Speci men Type: BLOOD SPECIMENOrdering Facility: [facility] Address: [address] [place] [address] Performed By: #### 5 7021-8 ####[facility] HOSPITALRICGREGORIOA [id number] [place] [address] [place] Erythrocyte distribution width (RBC) [Ratio] 13.4 % Normal 11.5-15.0 [facility] Comment on above: Order Comment: Speci men Type: BLOOD SPECIMENOrdering Facility: [facility] Address: [address] [place] [address] Performed By: #### 5 7021-8 ####[facility] HOSPITALNCLI [id number] [place] [address] [place] Hematocrit (Bld) [Volume fraction] 40.0 % Normal 39.0-51.0 [facility] Comment on above: Order Comment: Speci men Type: BLOOD SPECIMENOrdering Facility: [facility] Address: [address] [place] [address] Performed By: #### 5 7021-8 ####[facility] [id number] [place] [address] [place] Hemoglobin (Bld) [Mass/Vol] 12.7 g/dL Low 13.0-17.0 [facility] Comment on above: Order Comment: Speci men Type: BLOOD SPECIMENOrdering Facility: [facility] Address: [address] [place] [address] Performed By: #### 5 7021-8 ####[facility] [id number] [place] [address] [place] Immature granulocytes (Bld) [#/Vol] 10*3/uL Normal <0.10 [facility] Comment on above: Order Comment: Speci men Type: BLOOD SPECIMENOrdering Facility: [facility] Address: [address] [place] [address] Performed By: #### 5 7021-8 ####[facility] [id number] [place] [address] [place] Immature granulocytes/100 WBC (Bld) 0.3 % Normal [facility] Comment on above: Order Comment: Speci men Type: BLOOD SPECIMENOrdering Facility: [facility] Address: [address] [place] [address] Performed By: #### 5 7021-8 ####[facility]ITALN[facility] [id number] [place] [address] [place] Lymphocytes (Bld) [#/Vol] 2.43 10*3/uL Normal 1.00-4.00 [facility] Comment on above: Order Comment: Speci men Type: BLOOD SPECIMENOrdering Facility: [facility] Address: [address] [place] [address] Performed By: #### 5 7021-8 ####[facility] JOAQUINNCSATISH [id number] [place] [address] [place] Lymphocytes/100 WBC (Bld) 32.7 % Normal [facility] Comment on above: Order Comment: Speci men Type: BLOOD SPECIMENOrdering Facility: [facility] Address: [address] [place] [address] Performed By: #### 5 7021-8 ####[facility] HOSPITALNCSATISH [id number] [place] [address] [place] MCH (RBC) [Entitic mass] 29.9 pg Normal 26.0-34.0 [facility] Comment on above: Order Comment: Speci men Type: BLOOD SPECIMENOrdering Facility: [facility] Address: [address] [place] [address] Performed By: #### 5 7021-8 ####[facility]PITALNCLIA [id number] [place] [address] [place] MCHC (RBC) [Mass/Vol] 31.8 g/dL Normal 30.5-36.0 [facility] Comment on above: Order Comment: Speci men Type: BLOOD SPECIMENOrdering Facility: [facility] Address: [address] [place] [address] Performed By: #### 5 7021-8 ####[facility]ITALNCLIA [id number] [place] [address] [place] MCV (RBC) [Entitic vol] 94.1 fL Normal 80.0-100.0 C [facility] Comment on above: Order Comment: Speci men Type: BLOOD SPECIMENOrdering Facility: [facility] Address: [address] [place] [address] Performed By: #### 5 7021-8 ####[facility] MILLWNCLIA [id number] [place] [address] [place] Monocytes (Bld) [#/Vol] 0.56 10*3/uL Normal <0.87 [facility] Comment on above: Order Comment: Speci men Type: BLOOD SPECIMENOrdering Facility: [facility] Address: [address] [place] [address] Performed By: #### 5 7021-8 ####[facility]OSPITALNCLIA [id number] [place] [address] [place] Monocytes/100 WBC (Bld) 7.5 % Normal [facility] Comment on above: Order Comment: Speci men Type: BLOOD SPECIMENOrdering Facility: [facility] Address: [address] [place] [address] Performed By: #### 5 7021-8 ####[facility] HOSPITALLIA [id number] [place] [address] [place] Neutrophils (Bld) [#/Vol] 4.15 10*3/uL Normal 1.45-7.50 [facility] Comment on above: Order Comment: Speci men Type: BLOOD SPECIMENOrdering Facility: [facility] Address: [address] [place] [address] Performed By: #### 5 7021-8 ####[facility] MILLWNCLIA [id number] [place] [address] [place] Neutrophils/100 WBC (Bld) 55.7 % Normal [facility] Comment on above: Order Comment: Speci men Type: BLOOD SPECIMENOrdering Facility: [facility] Address: [address] [place] [address] Performed By: #### 5 7021-8 ####[facility] HOSPITALNCLIA [id number] [place] [id number] [place] Nucleated RBC (Bld) [#/Vol] 10*3/uL Normal <0.01 [facility] Comment on above: Order Comment: Speci men Type: BLOOD SPECIMENOrdering Facility: [facility] Address: [address] [place] [address] Performed By: #### 5 7021-8 ####[facility]PITALNCMOUNT[facility] [id number] [place] [address] [place] Nucleated RBC/100 WBC (Bld) [Ratio] 0.0 /100 WBC Normal [facility] Comment on above: Order Comment: Speci men Type: BLOOD SPECIMENOrdering Facility: [facility] Address: [address] [place] [address] Performed By: #### 5 7021-8 ####[facility]ITALNCMOUNT[facility] [id number] [place] [address] [place] Platelet mean volume (Bld) [Entitic vol] 8.3 fL Low 9.0-12.7 [facility] Comment on above: Order Comment: Speci men Type: BLOOD SPECIMENOrdering Facility: [facility] Address: [address] [place] [place] [address] Performed By: #### 5 7021-8 ####[facility]PITALNCLIA [id number] [place] [address] [place] Platelets (Bld) [#/Vol] 207 10*3/uL Normal 150-400 [facility] Comment on above: Order Comment: Speci men Type: BLOOD SPECIMENOrdering Facility: [facility] Address: [address] [place] [address] Performed By: #### 5 7021-8 ####[facility]ITALNCLIA [id number] [place] [address] [place] RBC (Bld) [#/Vol] 4.25 10*6/uL Normal 4.20-6.00 [facility] Comment on above: Order Comment: Speci men Type: BLOOD SPECIMENOrdering Facility: [facility] Address: [address] [place] [address] Performed By: #### 5 7021-8 ####[facility] JENNIFER ANGELICATOWNCLIA [id number] [place] [address] [place] WBC (Bld) [#/Vol] 7.44 10*3/uL Normal 3.70-11.00 [facility] Comment on above: Order Comment: Speci men Type: BLOOD SPECIMENOrdering Facility: [facility] Address: [address] [place] [address] Performed By: #### 5 7021-8 ####[facility] ANGELICATOWNCLIA [id number] [address] [place] CNOVSPon 09-05-2024 CNOVSP Visit (SP) Office (HEMAWS) ABELARDO IVORY ([id number]) 1950 M Date Time Provider Department 09/05/24 2:00 PM LAKEISHA RIVERS During your visit today, we recorded the following information about you: Temperature Pulse Blood pressure Weight 97.7 degrees 75/minute 145/69 69.2 kg Height 1.69 m Lakeisha Rivers DO 09/05/2024 5:01 PM Signed Patient self-referred for muscle invasive bladder cancer. HPI: The patient is a 74-year-old male with a past medical history as outlined below. Developed gross hematuria and noticed debris in urine. Saw Dr. Mcclendon. Had TURBT with chemo flush. Path below. [facility] b/c patient declined cystectomy. Per Dr. [...] ppd since age 15 years Pathology from [facility] reviewed at main campus: A. Urinary bladder, transurethral resection: - Invasive [...] cough. Clear sputum. Sees Dr. Zuñiga at [facility]. Smokes about 1/2 ppd. No alcohol. PAST [...] Take 5 mg by mouth once daily. faeprthdoty-olesajzft-o ilanter (TRELEGY ELLIPTA) 200-62.5-25 mcg inhalation powder [...] (Patient not (more content not included)... Normal [facility] Ale 09-05-2024 VICTORIANO Telephone (VAIBHAV) ABELARDO IVORY ([id number]) 1950 M Date Time Provider Department 09/05/24 MATTHEW GU During your visit today, we recorded the following information about you: Matthew Gu RN 09/05/2024 3:45 PM Signed Met with patient and introduced myself. Patient was given a My Journey binder with chemocare information, office contact information, thermometer, and additional chemotherapy resource booklets. Patient aware this nurse will review on scheduled appointment date. Matthew Gu RN Allergies As of Date: 09/05/2024 (No Known Allergies) Date Reviewed: 09/05/2024 Reviewed by: Paramjit Lugo MA - Fully Assessed Reason for Visit: Materials Handling Coordinator - Other [3601] Cmt: Introduction Prescriptions as of 09/05/2024 - phenazopyridine (PYRIDIUM) 100 mg tablet Take 100 mg by mouth three times a day. - cholecalciferol, vitamin D3, (VITAMIN D-3) 10 mcg (400 unit) cap Take 400 Units by mouth once daily. - amLODIPine (NORVASC) 5 mg tablet Take 5 mg by mouth once daily. - curhlrlqtbv-ypjmhceki-g ilanter (TRELEGY ELLIPTA) 200-62.5-25 mcg inhalation powder [...] urinary bladder (HCC) [C6*09/05/2024 Encounter Status:Closed by MATTHEW GU on 09/05/24 Normal [facility] CNPN Telephone (HEMAWS) ABELARDO IVORY ([id number]) 1950 M Date Time Provider Department 09/05/24 LAKEISHA RIVERS During your visit today, we recorded the following information about you: NasreenLeonardo 09/05/2024 3:30 PM Signed AVS 09/05 Labs [...] OV with me in about 8 weeks. Lakeisha Rivers DO 09/05/2024 5:32 PM Signed Lab results from today show significant elevation of serum creatinine and BUN. Ultrasound stat. Also scheduled for potential nephrostomy tube placement at [place] or [place]. Chelsea Gutierres 09/06/2024 10:09 AM Addendum Scheduled US for 09/07 PICC LINE 09/10 @ 10 [facility] [place] MD 09/06/2024 9:51 AM Signed Absolutely- will add antegrade stent to procedure if IR is able MD Lizzette Rosales Melissa 09/06/2024 12:15 PM Signed Received call from [facility] stating they are unable to insert picc with order placed. She states they need a Tunneled Picc ordered and [facility] would schedule that procedure. Elizabeth Ludwig LPN 09/06/2024 12:22 PM Signed See routing comment below. I will take care of the PICC line when appropriate to schedule. The IR order that's in is for a nephrostomy tube. SUDHA Rachel, Megha 09/07/2024 12:18 PM Addendum AVS 09/05 Radiation [...] OV with me in about 8 weeks. Lizzette Cazares Megha 09/07/2024 12:20 PM Signed Week 4 of treatment falls on 10/08, . Spoke with Matthew regarding treatment and she had a couple of possibilities for treatment. Please advise if patient needs to start later than 09/17 or if patient can start later the week of 10/08 and remove pump the following week. Megha Knight 09/07/2024 4:30 PM Signed Schedule updated and completed Lizzette Cazares Megha 09/10/2024 10:20 AM Signed Will need PICC line and may leave in for 1 month for treatment. Elizabeth Ludwig LPN 09/10/2024 10:49 AM Signed PICC orders faxed to [facility] IR; needs placed on 09/21/2024. SUDHA Rachel Melissa 09/10/2024 10:55 AM Signed chemo moved to 09/24 Allergies As of Date: 09/05/2024 (No Known Allergies) Date Reviewed: 09/05/2024 Reviewed by: Paramjit Lugo MA - Fully Assessed Reason for Visit: Results [95] Primary Visit Diagnosis:Malignant neoplasm of overlapping sites of bladder (HCC) [C67.8] Other Visit Diagnoses:ROSALIE (acute kidney injury) [N17.9] Hydroureter on left [N13.4] Order(s):US KIDNEY/BLADDER [4227201] Order #: [id number] FUTURE IR NEPHROSTOMY TUBE PLACE [3485904] Order #: [id number] Prescriptions as of 09/10/2024 - phenazopyridine (PYRIDIUM) 100 mg tablet Take 100 mg by mouth three times a day. - cholecalciferol, vitamin D3, (VITAMIN D-3) 10 mcg (400 unit) cap Take 400 Units by mouth once daily. - amLODIPine (NORVASC) 5 mg tablet Take 5 mg by mouth once daily. - epdbvhoaqgm-vbozofhhz-y ilanter (TRELEGY ELLIPTA) 200-62.5-25 mcg inhalation powder [...] testing [Z (more content not included)... Normal [facility] Comprehensive metabolic 2000 panelOrdered By: Jessie Stewart on 09-05-2024 Albumin [Mass/Vol] 4.4 g/dL 3.9 - 4.9 g/dL [facility] ALP [Catalytic activity/Vol] 75 U/L 38 - 113 U/L [facility] ALT [Catalytic activity/Vol] 8 U/L Low 10 - 54 U/L [facility] Anion gap [Moles/Vol] 15 mmol/L 8 - 15 mmol/L [facility] AST [Catalytic activity/Vol] 14 U/L 14 - 40 U/L [facility] Bilirubin [Mass/Vol] 0.3 mg/dL 0.2 - 1 .3 mg/dL [facility] Calcium [Mass/Vol] 9.1 mg/dL 8.5 - 10. 2 mg/dL [facility] Chloride [Moles/Vol] 103 mmol/L 98 - 10 7 mmol/L [facility] CO2 [Moles/Vol] 18 mmol/L Low 22 - 30 mmol/L [facility] Creatinine [Mass/Vol] 2.23 mg/dL High 0.73 - 1.22 mg/dL [facility] GFR/1.73 sq M.predicted among non-blacks MDRD (S/P/Bld) [Vol rate/Area] 30 mL/min/{1.73_m2} Low - PINF [facility] Comment on above: Estimated Glomerular Filtration Rate [...] 104 mg/dL High 74 - 99 mg/dL [facility] Comment on above: The [place] Diab[employer] [place] Association (ADA) provides guidance for [...] Standards of Medical Care in Diabetes 2016, [place] Diabetes Association. Diabetes Care. 2016.39(Suppl 1). Interpretation and review of laboratory results Abnormal [facility] Potassium [Moles/Vol] 5.3 mmol/L High 3.7 - 5.1 mmol/L [facility] Protein [Mass/Vol] 7.4 g/dL 6.3 - 8.0 g/dL [facility] Sodium [Moles/Vol] 136 mmol/L 136 - 144 mmol/L [facility] Urea nitrogen [Mass/Vol] 35 mg/dL High 9 - 24 mg/dL [facility] Comprehensive metabolic 2000 panelon 09-05-2024 Albumin [Mass/Vol] 4.4 g/dL Normal 3.9-4.9 [facility] Comment on above: Order Comment: Speci men Type: BLOOD SPECIMENOrdering Facility: [facility] Address: [address] [place] [address] Performed By: #### 2 4323-8 ####[facility] MILLTOWNCLIA [id number] [place] [address] [place] ALP [Catalytic activity/Vol] 75 U/L Normal 38-113 [facility] Comment on above: Order Comment: Speci men Type: BLOOD SPECIMENOrdering Facility: [facility] Address: [address] [place] [address] Performed By: #### 2 4323-8 ####[facility] ERWNCLIA [id number] [place] [address] [place] ALT [Catalytic activity/Vol] 8 U/L Low 10-54 [facility] Comment on above: Order Comment: Speci men Type: BLOOD SPECIMENOrdering Facility: [facility] Address: [address] [place] [address] Performed By: #### 2 4323-8 ####[facility]ITALNCLIA [id number] [place] [address] [place] Anion gap [Moles/Vol] 15 mmol/L Normal 8-15 [facility] Comment on above: Order Comment: Speci men Type: BLOOD SPECIMENOrdering Facility: [facility] Address: [address] [place] [address] Performed By: #### 2 4323-8 ####[facility] ERWNCLIA [id number] [place] [address] [place] AST [Catalytic activity/Vol] 14 U/L Normal 14-40 [facility] Comment on above: Order Comment: Speci men Type: BLOOD SPECIMENOrdering Facility: [facility] Address: [address] [place] [address] Performed By: #### 2 4323-8 ####[facility] JENNIFER KELLENGREGORIOA [id number] [place] [address] [place] Bilirubin [Mass/Vol] 0.3 mg/dL Normal 0.2-1.3 [facility] Comment on above: Order Comment: Speci men Type: BLOOD SPECIMENOrdering Facility: [facility] Address: [address] [address] Performed By: #### 2 4323-8 ####[facility]OSPITALBRIAN [id number] [place] [address] [place] Calcium [Mass/Vol] 9.1 mg/dL Normal 8.5-10.2 [facility] Comment on above: Order Comment: Speci men Type: BLOOD SPECIMENOrdering Facility: [facility] Address: [address] [place] [address] Performed By: #### 2 4323-8 ####[facility]ITALBRIAN [id number] [place] [address] [place] Chloride [Moles/Vol] 103 mmol/L Normal 98-107 [facility] Comment on above: Order Comment: Speci men Type: BLOOD SPECIMENOrdering Facility: [facility] Address: [address] [place] [address] Performed By: #### 2 4323-8 ####[facility]ITALNCLIA [id number] [place] [address] [place] CO2 [Moles/Vol] 18 mmol/L Low 22-30 [facility] Comment on above: Order Comment: Speci men Type: BLOOD SPECIMENOrdering Facility: [facility] Address: [address] [place] [address] Performed By: #### 2 4323-8 ####[facility] ANGELICAWNCLIA [id number] [place] [address] [place] Creatinine [Mass/Vol] 2.23 mg/dL High 0.73-1.22 [facility] Comment on above: Order Comment: Speci men Type: BLOOD SPECIMENOrdering Facility: [facility] Address: [address] [place] [address] Performed By: #### 2 4323-8 ####[facility]OSPITALNCLI [id number] [place] [address] [place] eGFRcr SerPlBld CKD-EPI 2020 30 mL/min/1.73m??? Low >=60 [facility] Comment on above: Order Comment: Speci men Type: BLOOD SPECIMENOrdering Facility: [facility] Address: [address] [place] [address] Result Comment: Amy mated Glomerular Filtration Rate [...] actual GFR. Performed By: #### 2 4323-8 ####[facility]ITALNCLIA [id number] [place] [address] [place] Glucose [Mass/Vol] 104 mg/dL High 74-99 [facility] Comment on above: Order Comment: Speci men Type: BLOOD SPECIMENOrdering Facility: [facility] Address: [address] [id number] Result Comment: The [place] Diabetes Association (ADA) provides guidance for cutoff [...] Standards of Medical Care in Diabetes 2016, [place] Diabetes Association. Diabetes Care. 2016.39(Suppl 1). Performed By: #### 2 4323-8 ####[facility] MILLWRICLIA [id number] [place] [address] [place] Potassium [Moles/Vol] 5.3 mmol/L High 3.7-5.1 [facility] Comment on above: Order Comment: Speci men Type: BLOOD SPECIMENOrdering Facility: [facility] Address: [address] [address] Performed By: #### 2 4323-8 ####[facility] HOSPITALLIA [id number] [place] [address] [place] Protein [Mass/Vol] 7.4 g/dL Normal 6.3-8.0 [facility] Comment on above: Order Comment: Speci men Type: BLOOD SPECIMENOrdering Facility: [facility] Address: [address] [place] [address] Performed By: #### 2 4323-8 ####[facility] HOSPITALLIA [id number] [place] [address] [place] Sodium [Moles/Vol] 136 mmol/L Normal 136-144 [facility] Comment on above: Order Comment: Speci men Type: BLOOD SPECIMENOrdering Facility: [facility] Address: [address] [address] Performed By: #### 2 4323-8 ####[facility] HOSPITALLIA [id number] [place] [address] [place] Urea nitrogen [Mass/Vol] 35 mg/dL High 9-24 [facility] Comment on above: Order Comment: Speci men Type: BLOOD SPECIMENOrdering Facility: [facility] Address: [facility] [place] [address] Performed By: #### 2 4323-8 ####[facility] JENNIFER ZHOU [id number] [place] [address] [place] DPYD/UGT1A1 GENOTYPING PANEL on 09-05-2024 DPYD/UGT1A1 GENOTYPING PANEL RESULT Normal [facility] Comment on above: Order Comment: Speci men Type: BLOOD SPECIMENOrdering Facility: [facility] Address: [address] [place], [place] [address] [address] Result Comment: [place] [employer] Max Uversity (PGx) DPYD and UGT1A1 Genotyping Laboratory Accession Number: [id number] DPYD Genotype: *1/*1 DPYD Activity Score: 2 [...] molecular testing details should be directed to . One decreased function UGT1A1 allele, in combination [...] molecular testing details should be directed to . The DPYD gene encodes dihydropyrimidine dehydrogenase (DPD). [...] Variant Details: NA UGT1A1 Variant Details: UGT1A1 [id number], c.-346C>T, g.[id number]>T (legacy name 80); UGT1A1 [id number], c.-41_-40dupTA g.[id number] (legacy name 28) DPYD Additional Information: In addition to increased risk of 5-fluorouracil toxicity, variants in the DPYD gene may be associated with DPD deficiency, an autosomal recessive inborn error of metabolism (OMIM: 787948). DPD deficiency exhibits a wide range of [...] list below) in the DPYD gene (OMIM 479421) and UGT1A1 gene (OMIM 527885). This test does not detect all sequence [...] (more content not included)... Performed By: #### D UPNL1 ####[facility] I[facility]UM[facility] LIMSCLIA [id number] [place] [address] [place] HBV core Ab Ser Qlon 025 HBV core Ab Ql (S) Negative Normal Negative [facility] Comment on above: Order Comment: Speci men Type: BLOOD SPECIMENOrdering Facility: [facility] Address: [address] [place] [address] Result Comment: No e vidence of current or past infection with Hepatitis B virus. Should recent infection be suspected, repeat testing may be considered 3-4 weeks after this draw. Performed By: #### 1 6933-4, 5194-3, ####[facility] LABCLIA [id number] [address] [place] HBV surface Ab Ql (S)on 08-09 HBV surface Ab Qn (S) <8.00 Normal [facility] Comment on above: Order Comment: Speci men Type: BLOOD SPECIMENOrdering Facility: [facility] Address: [address] [place] [address] Result Comment: <8 m IU/mL: No serological evidence of immunity to Hepatitis B Virus. >/= 8 to <12 mIU/mL: No serological evidence of immunity to Hepatitis B Virus. >/= 12 mIU/mL: Consistent with serological evidence of immunity to Hepatitis B Virus. Performed By: #### 1 6933-4, 5-3, ####[facility] LABCLIA [id number] [address] [address] [place] HBV surface Ab Ser Qlon 08-09 HBV surface Ab Ql (S) Negative Normal [facility] Comment on above: Order Comment: Speci men Type: BLOOD SPECIMENOrdering Facility: [facility] Address: [address] [place] [address] Result Comment: No s erological evidence of immunity to Hepatitis B Virus. Performed By: #### 1 6933-4, 5-3, 94439-9 ####[facility] LABIA [id number] [place] [address] [place] HBV surface Ag Ser Qlon 08-09 HBV surface Ag Ql (S) Negative Normal Negative [facility] Comment on above: Order Comment: Speci men Type: BLOOD SPECIMENOrdering Facility: [facility] Address: [address] [place] [place] [address] Performed By: #### 1 6933-4, 5194-3, 61312-2 ####[facility] LABIA [id number] [place] [address] [place] HCV Ab Ser Qlon 09-05-2024 HCV Ab Ql (S) Negative Normal Negative [facility] Comment on above: Order Comment: Speci men Type: BLOOD SPECIMENOrdering Facility: [facility] Address: [address] [place] [address] Result Comment: The result suggests no evidence of infection with Hepatitis C virus. Should recent infection be suspected, repeat testing may be considered 4-6 weeks after this draw. Performed By: #### 1 6128-1 ####[facility] LABW[facility] [id number] [place] [address] [place] Cardiology Visit Reporton Cardiology Visit Report [facility] [address] [place], [place] [id number] OFFICE VISIT Date of Service: 08/30/24 MR#: [id number] Acct: [id number] Name: ABELARDO IVORY Rep #: [id number] : 1950 Provider: TOÑO stover Age/Sex: 74/M Location: [facility] [place] Status: Signed HPI HPI History of Present Illness Details: Abelardo Ivory is a 74-year-old male who presents to the office today for a cardiovascular follow-up visit. He underwent a transurethral bladder resection on 06/27/[address] Mcclendon for concerns of a bladder mass. He states that he will be starting chemo treatments soon at [facility]. Patient has a history of aortic stenosis diagnosed in 2012. Patient underwent coronary angiography which revealed 80% stenosis in the RCA and patient was referred to [facility] for aortic valve and RCA revascularization. Patient underwent AVR plus CABG x 1 (Perimount #23, SVG to RCA at [facility] on 02/12/2019). Patient did well postoperatively with echocardiogram demonstrating preserved ejection fraction, normally functioning prosthetic aortic valve with peak gradient 25 mmHg and mean gradient of 13 mmHg. Patient was diagnosed with an abdominal aortic aneurysm and was sent to [facility] for an opinion. It was noted to [...] of aneurysm leak. 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 To start treatment. [facility] Medical History Bladder cancer Wears dentures Wears glasses Bruising Easy bruising High cholesterol Smoker Shortness of breath on exertion History of echocardiogram Cardiology follow-up encounter Stage 3b chronic kidney disease (CKD) Thrombocytopenia Chronic kidney insufficiency Pleural effusion Secondary pulmonary arterial hypertension Atherosclerotic heart disease of [place] coronary artery without angina pectoris Intention tremor Carotid stenosis, bilateral Hyperlipidemia Nonrheumatic aortic (valve) stenosis Essential hypertension Tobacco dependence Bilateral ingui (more content not included)... [facility] BLADDER SCANon 08-29-2024 Bladder scan volume 32ml [facility] CNOVon 08-29-2024 CNOV Office Visit (UROLAE ) ABELARDO IVORY ([id number]) 1950 M Date Time Provider Department 08/29/24 [...] (no units) Date Value 02/06/2019 Negative Specific [place], Ur (no units) Date Value 02/06/2019 1.017 [...] Take 5 mg by mouth once daily. vtdnijvjhtv-agpjsyerw-m ilanter (TRELEGY ELLIPTA) 200-62.5-25 mcg inhalation powder [...] EXAM: Exam NOT Indicated 08/29/2024 PVR <50cc 08/22 (more content not included)... Normal [facility] Ale 08-29-2024 CNPN Telephone (HEMCA3) ABELARDO IVORY ([id number]) 1950 Date Time Provider Department 08/29/24 CODEY CHRISTIANSON HEMCA3 During your visit today, we recorded the following information about you: Tabitha Hayes 08/29/2024 3:29 PM Signed Abelardo Ivory is calling Codey Christianson MD today regarding Materials Handling Coordinator - Other Patient wants to have his radiation locally at the [facility] in [place]. [place] told him they need information from Dr. Christianson to make sure they have the treatment he needs/getting. Can someone call the patient back Patient has been identified by name and birthdate. Requesting response back: [phone] (home) [phone] (cell) Tabitha Hayes August 29, 2024 Karen Post, ANGELA 08/29/2024 4:50 PM Signed Returned call to Abelardo Ivory regarding establishing care at [facility]. Contacted [facility] and spoke with Saira in hem/onc and she was able to schedule Darrel for: 09/05/2024 @ 2PM with Dr. Lakeisha Rivers. All questions addressed. Karen KIRBY, RN Specialty Materials Handling Coordinator Allergies As of Date: 08/29/2024 (No Known Allergies) Date Reviewed: 08/29/2024 Reviewed by: Marii Quick MA - Fully Assessed Reason for Visit: Materials Handling Coordinator - Other [3608] Prescriptions as of 08/29/2024 - phenazopyridine (PYRIDIUM) [...] 5 mg by mouth once daily. - qqqcazkcurx-bfeicewus-q ilanter (TRELEGY ELLIPTA) 200-62.5-25 mcg inhalation powder [...] kidney disease) [N18.9] 08/16/2024 Encounter Status:Closed by KAREN POST on 08/29/24 Normal [facility] UA DIP, URINE (POC)on 2024 BILIRUBIN UA (POCT) Negative Negative [place] [facility] CLARITY UA (POCT) Clear [facility] COLOR UA (POCT) Yellow [facility] GLUCOSE UA (POCT) Negative Negative mg/dL [facility] Hemoglobin Ql (U) Large Abnormal Negative [facility] Interpretation and review of laboratory results Abnormal [facility] KETONE UA (POCT) Negative Negative mg/dL [facility] LEUKOCYTES UA (POCT) Moderate Abnormal Negative [facility] NITRITE UA (POCT) Negative Negative [facility] PH UA (POCT) 6 4.5 - 8.0 [facility] Protein Ql (U) 100 mg/dL Abnormal Negative [facility] SPECIFIC GRAVITY UA (POCT) 1.025 1.005 - 1.030 [facility] UROBILINOGEN UA (POCT) 0.2 Margaret l E.U./dL [facility] Location:[facility], [address] [place], [place], [address] [place] [address] POINT OF CARE [facility] Ale 08-24-2024 OJN Telephone (MIGUEL A CASTILLO) ABELARDO IVORY ([id number]) 1950 M Date Time Provider Department 08/24/24 FARHEEN VALENTINEA JONATHAN During your visit today, we recorded the following information about you: Farheen Valentine, RN 08/24/2024 3:33 PM Signed CASE [id number]: Spoke with patient, states he saw urology this week and stent was placed. Patient states he has decided not to do the study and would like to follow in [place] for chemo if possible. Aware Dr Christianson will be notified. Allergies As of Date: 08/24/2024 (No Known Allergies) Date Reviewed: 08/21/2024 Reviewed by: Sonja Vargas, ANGELA - Fully Assessed Reason for Visit: CASE [id number] Update [Other] Prescriptions as of 08/24/2024 - amLODIPine (NORVASC) 5 mg tablet Take 5 mg by mouth once daily. - xpxzkpkhmks-hgsyvmkvl-s ilanter (TRELEGY ELLIPTA) 200-62.5-25 mcg inhalation powder [...] Encounter Status:Closed by FARHEEN VALENTINE on 08/24/24 [facility] 08-22-2024 CNPN Telephone (MIGUEL A CASTILLO) ABELARDO IVORY ([id number]) 1950 M Date Time Provider Department 08/22/24 FARHEEN VALENTINE MIGUEL A CASTILLO During your visit today, we recorded the following information about you: Farheen Valentine RN 08/22/2024 12:24 PM Signed CASE [id number]: Left message on [employer] for pt to return call Allergies As of Date: 08/22/2024 (No Known Allergies) Date Reviewed: 08/21/2024 Reviewed by: Sonja Vargas, RN - Fully Assessed Reason for Visit: CASE [id number] Discussion [Other] Prescriptions as of 08/22/2024 - amLODIPine (NORVASC) 5 mg tablet Take 5 mg by mouth once daily. - bkftcgfmclb-qzhxinolp-h ilanter (TRELEGY ELLIPTA) 200-62.5-25 mcg inhalation powder [...] Status:Closed by FARHEEN VALENTINE on 08/22/24 Normal [facility] ANES POSTPROC EVALon 025 ANES POSTPROC EVAL HNO ID: [id number] Author: KALEIGH BENITES MD Service: Anesthesiology Author Type: Physician Type: Anesthesia Postprocedure Evaluation Filed: 08/21/2024 15:39 Note Text: POST ANESTHESIA EVALUATION NOTE : 1950 Procedure Summary Date: 08/21/24 Room / Location: [place] OR [address] [place] [address] OR Anesthesia Start: 1501 Anesthesia Stop: 1534 [...] August 21, 2024 TIME: 3:38 PM CSN: [id number] Normal [facility] ANES PRE-OPon 08-21-2024 ANES PRE-OP HNO ID: [id number] Author: MALCOLM ARTHUR MD Service: Anesthesiology Author Type: Anesthesiologist Type: Anesthesia Preprocedure Evaluation Filed: 08/21/2024 14:20 Note Text: ANESTHESIOLOGY DAY OF SURGERY NOTE : 1950 Procedure Information Date/Time: 08/21/24 1525 Procedures: CYSTOSCOPY RIGID (Bladder) EXCISION BLADDER TUMOR [...] 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 Short neck: no. Thick neck: no Idxon present: yes DENTAL Dental findings: poor dentition [...] and consent discussed: yes. Patient / Responsible Alliance Party agrees to proceed: yes Patient / [...] obtained within 48 hours of Surgery/Procedure. SIGNATURE: Malcolm Arthur MD PATIENT NAME: Abelardo Ivory DATE: August 21, 2024 TIME: 2:20 PM CSN: [id number] [facility] 08-21-2024 CNPN Telephone (UROLAE) ABELARDO IVORY ([id number]) 1950 M Date Time Provider Department 08/21/24 [...] results on phone as they live in [place] MD Avni Rosales Margaret 08/22/2024 11:10 AM Signed Lm to call. Earnestine Glover 08/24/2024 11:11 AM Signed Spoke with patient and daughter ct scheduled they are aware of date, time and location for scan as well as prep instructions that my apply, will have blood work done on the same day. Earnestine Bass Allergies As of Date: 08/21/2024 (No Known Allergies) Date Reviewed: 08/21/2024 Reviewed by: Sonja Vargas, ANGELA - Fully Assessed Reason for Visit: Surgical Followup [104] Orders [681] Primary Visit Diagnosis:Malignant neoplasm of urinary bladder, unspecified site (HCC) [C67.9] Other Visit Diagnosis:Other hydronephrosis [N13.39] Order(s):CT ABD/PEL WO IVCON [5431067] Order #: [id number] FUTURE BASIC METABOLIC PANEL [SQBMP] Order #: [id number] FUTURE Prescriptions as of 08/24/2024 - amLODIPine (NORVASC) 5 mg tablet Take 5 mg by mouth once daily. - tontrkwoazc-nwcfneolq-z ilanter (TRELEGY ELLIPTA) 200-62.5-25 mcg inhalation powder [...] Encounter Status:Closed by STACY GAUTHIER on 08/21/24 [facility] OPERATIVE NOon 08-21-2024 OPERATIVE NO HNO ID: [id number] Author: STACY GAUTHIER MD Service: Urology Author Type: Physician Type: Operative Report Filed: 08/22/2024 03:14 Note Text: OPERATIVE/PROCEDURE REPORT LOG ID: [id number] SURGERY/PROCEDURE DATE: 08/21/2024 INCISION/PROCEDURE START TIME: 3:16 PM INCISION CLOSE/PROCEDURE END TIME: 3:26 PM SURGEON(S)/PROCEDURALIS T(S) AND VETERINARY LABORATORY DIAGNOSTICIAN(S): Surgeons and Role: * Stacy Gauthier MD [...] DO Urology PGY-2 08/21/2024 3:41 PM Normal [facility] Bacteria Ur Culton 5 Bacteria identified Cx Nom (U) CULTURE, URINE: No growth (<1,000 CFU/ml) Normal [facility] Comment on above: Performed By: #### 6 30-4 #### [facility] CLIA [id number] [address] [place] [address] [place] HISTORY PHYSICALon 5 HISTORY PHYSICAL HNO ID: [id number] Author: MARISELA PICHARDO APRN.RECORDS MANAGEMENT MANAGER Service: ? 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 Limited study. Essential hypertension Assessment: taking taking [...] Take 5 mg by mouth once daily. afzjsnyipuh-nhyfbafcy-k ilanter (TRELEGY ELLIPTA) 200-62.5-25 mcg inhalation powder [...] a bladder resection in June 2023 at [facility]. Today, he denies pain, rating 0 out of 10 on numeric pain scale. (more content not included)... Normal [facility] CNPNon 08-03-2024 CNPN Telephone (MIGUEL A CASTILLO) ABELARDO IVORY ([id number]) 1950 [place] Date Time Provider Department 08/03/24 FARHEEN VALENTINE [...] hol. Patient will need repeat TURBT at [facility] due to previously being done at [facility]. Allergies As of Date: 08/03/2024 (No [...] Encounter Status:Closed by FARHEEN VALENTINE on 08/03/24 [facility] CNOVon 08-02-2024 CNOV Office Visit (UROLAE ) ABELARDO IVORY ([id number]) 1950 M Date Time Provider Department 08/02/24 [...] (no units) Date Value 02/06/2019 Negative Specific [place], Ur (no units) Date Value 02/06/2019 1.017 [...] distress, well-hydra (more content not included)... Normal [facility] UA DIP, URINE (POC)on 2024 BILIRUBIN UA (POCT) Negative Negative [facility] CLARITY UA (POCT) Clear [facility] COLOR UA (POCT) Yellow [facility] GLUCOSE UA (POCT) Negative Negative mg/dL [facility] Hemoglobin Ql (U) Moderate Abnormal Negative [facility] Interpretation and review of laboratory results Abnormal [facility] KETONE UA (POCT) Negative Negative mg/dL [facility] LEUKOCYTES UA (POCT) Trace Abnormal Negative [facility] NITRITE UA (POCT) Negative Negative [facility] PH UA (POCT) 5.5 4.5 - 8.0 [facility] Protein Ql (U) 100 mg/dL Abnormal Negative [facility] SPECIFIC GRAVITY UA (POCT) 1.02 1.005 - 1.030 [facility] UROBILINOGEN UA (POCT) 0.2 Margaret l E.U./dL [facility] [address] [place] [address], [address] [facility] POINT OF CARE [facility] CT ABD/PEL W IVCONon 025 CT ABD/PEL W IVCON * * *Final Report* * * DATE OF EXAM: Jul 31 2024 2:11PM [facility] 0530 - CT ABD/PEL W IVCON / [...] compatible with urothelial cancer. No abdominopelvic metastasis. Slabbing Machine Operator: [facility] Transcribe Date/Time: Jul 31 2024 3:04P Dictated by : CRALINE CHAPMAN MD This examination was interpreted and the report reviewed and electronically signed by: PADMINI BRUSH MD on Jul 31 2024 8:26PM EST [id number] Normal [facility] CT Abdomen and Pelvis W cont rast Darci 07-31-2024 IMPRESSION: Wall thickening along bladder trigone compatible with urothelial cancer. No abdominopelvic metastasis. Slabbing Machine Operator: [facility] Transcribe Date/Time: Jul 31 2024 3:04P Dictated by : CARLINE CHAPMAN MD This examination was interpreted and the report reviewed and electronically signed by: PADMINI BRUSH MD on Jul 31 2024 8:26PM EST DIVISION OF RADIOLOGY * * *Final Report* * * DATE OF EXAM: Jul 31 2024 2:11PM [facility] 0530 - CT ABD/PEL W IVCON / [...] No additional findings. DIVISION OF RADIOLOGY Provider, [facility] - 07/31/2024 * * *Final Report* * * DATE OF EXAM: Jul 31 2024 2:11PM [facility] 0530 - CT ABD/PEL W IVCON / [...] compatible with urothelial cancer. No abdominopelvic metastasis. Slabbing Machine Operator: JESUS ALBERTO Transcribe Date/Time: Jul 31 2024 3:04P Dictated by : CARLINE CHAPMAN MD This examination was interpreted and the report reviewed and electronically signed by: PADMINI BRUSH MD on Jul 31 2024 8:26PM EST [facility] Radiology Study observation (narrative) [facility] Abdomen and Pelvis W cont rast IVOrdered By: [facility] Provider on 07-31-2024 [facility] CT CHEST W IVCONon CT CHEST W IVCON * * *Final Report* * * DATE OF EXAM: Jul 31 2024 2:11PM [facility] 0539 - CT CHEST W IVCON / [...] to a granulomatous process such as histoplasmosis. Slabbing Machine Operator: JESUS ALBERTO Transcribe Date/Time: Jul 31 2024 2:19P Dictated by : JOHAN CARTER MD This examination was interpreted and the report reviewed and electronically signed by: JOHAN CARTER MD on Jul 31 2024 2:29PM EST [id number] Normal [facility] CT Chest W contrast Darci IMPRESSION: 1. Stable nodules in left lung measuring up to 5 mm, these are indeterminate, recommend continued attention on follow-up. No new lung nodules or consolidations have developed. 2. Stable borderline enlarged lymph nodes in the mediastinum, probably reactive or related to a granulomatous process such as histoplasmosis. Slabbing Machine Operator: JESUS ALBERTO Transcribe Date/Time: Jul 31 2024 2:19P Dictated by : JOHAN CARTER MD This examination was interpreted and the report reviewed and electronically signed by: JOHAN CARTER MD on Jul 31 2024 2:29PM EST DIVISION OF RADIOLOGY * * *Final Report* * * DATE OF EXAM: Jul 31 2024 2:11PM [facility] 0539 - CT CHEST W IVCON / [...] No additional findings. DIVISION OF RADIOLOGY Provider, [facility] - 07/31/2024 * * *Final Report* * * DATE OF EXAM: Jul 31 2024 2:11PM [facility] 0539 - CT CHEST W IVCON / [...] to a granulomatous process such as histoplasmosis. Slabbing Machine Operator: JESUS ALBERTO Transcribe Date/Time: Jul 31 2024 2:19P Dictated by : JOHAN CARTER MD This examination was interpreted and the report reviewed and electronically signed by: JOHAN CARTER MD on Jul 31 2024 2:29PM [facility] Radiology Study observation (narrative) [facility] OUTSIDE SURG PATH SLIDE REVI EWon 07-31-2024 AP DISCLAIMER Normal [facility] Comment on above: Order Comment: Speci men Type: FORMALIN-FIXED PARAFFIN-EMBEDDED TISSUE SPECIMENOrdering Facility: AP Outside Review Address: , , Result Comment: Panchito downey Developed Test (LDT) Disclaimer: Performance characteristics of immunohistochemical, immunofluorescent, and chromogenic in-situ hybridization tests have been determined by the performing laboratory within [facility]'s Abelardo Maria A [facility] and Laboratory Medicine Department ([facility], [facility], [facility], [facility], [facility], Pending [facility] To [facility], or [facility]) in a manner consistent with CLIA requirements. One or more of these tests may not have been cleared or approved by the FDA. RT[facility] is regulated under CLIA as qualified to perform high-complexity testing. These tests are used for clinical purposes. These should not be regarded as investigational or for research. Positive and negative controls stain appropriately. Performed By: #### L [id number] ####[facility] LAB[facility] [id number] [place] [id number] [place] CASE REPORT Normal [facility] Comment on above: Order Comment: Speci men Type: FORMALIN-FIXED PARAFFIN-EMBEDDED TISSUE SPECIMENOrdering Facility: AP Outside Review Address: , , Result Comment: [facility] Pathology Report Case: [id number] Authorizing Provider: Codey Christianson MD Collected: 07/31/2024 09:18 AM Ordering Location: [facility] Received: 07/31/2024 09:16 AM [facility] Pathologist: Mj Beltran MD Specimen: Slide(s), 4 SLIDES [id number] Performed By: #### L [id number] ####[facility] LABCLIA [id number] [address] STATES [facility] FINAL DIAGNOSIS Normal [facility] Comment on above: Order Comment: Speci men Type: FORMALIN-FIXED PARAFFIN-EMBEDDED TISSUE SPECIMENOrdering Facility: AP Outside Review Address: , , Result Comment: [facility]; [place], [place] ([id number]) A. Urinary bladder, transurethral resection: - Invasive urothelial carcinoma, high-grade, involving muscularis propria. JKM 07/31/2024 at 1058 EDT Performed By: #### L [id number] ####[facility] LABCLIA [id number] [place] [id number] [place] FINAL PERFORMING LAB Normal [facility] Comment on above: Order Comment: Speci men Type: FORMALIN-FIXED PARAFFIN-EMBEDDED TISSUE SPECIMENOrdering Facility: AP Outside Review Address: , , Result Comment: Diag nostic interpretation performed at: [facility], [address] [address] CLIA# [id number] Criminal Records Technician: Antoine Tony MD Performed By: #### L [id number] ####[facility] LABCLIA [id number] [place] [id number] [place] CBC W Auto Differential pane l (Bld)on 07-26-2024 Basophils (Bld) [#/Vol] 0.05 10*3/uL [facility] Basophils/100 WBC (Bld) 0.7 % [facility] Differential cell count method Nom (Bld) Auto [facility] Eosinophils (Bld) [#/Vol] 0.24 10*3/uL [facility] Eosinophils/100 WBC (Bld) 3.3 % [facility] Erythrocyte distribution width (RBC) [Ratio] 13.8 % 11.5 - 15.0 % [facility] Hematocrit (Bld) [Volume fraction] 38.1 % Low 39.0 - 51.0 % [facility] Hemoglobin (Bld) [Mass/Vol] 12.2 g/dL Low 13.0 - 17.0 g/dL [facility] Immature granulocytes (Bld) [#/Vol] [facility] Immature granulocytes/100 WBC (Bld) 0.1 % [facility] Interpretation and review of laboratory results Abnormal [facility] Lymphocytes (Bld) [#/Vol] 3.39 10*3/uL [facility] Lymphocytes/100 WBC (Bld) 46.3 % [facility] MCH (RBC) [Entitic mass] 29.8 pg 26.0 - 34.0 pg [facility] MCHC (RBC) [Mass/Vol] 32 g/dL 30.5 - 36.0 g/dL [facility] MCV (RBC) [Entitic vol] 92.9 fL 80.0 - 100.0 fL [facility] Monocytes (Bld) [#/Vol] 0.64 10*3/uL [facility] Monocytes/100 WBC (Bld) 8.7 % [facility] Neutrophils (Bld) [#/Vol] 2.99 10*3/uL [facility] Neutrophils/100 WBC (Bld) 40.9 % [facility] Nucleated RBC (Bld) [#/Vol] [facility] Nucleated RBC/100 WBC (Bld) [Ratio] 0 % /100 WBC [facility] Platelet mean volume (Bld) [Entitic vol] 8.8 fL Low 9.0 - 12.7 fL [facility] Platelets (Bld) [#/Vol] 156 10*3/uL [facility] RBC (Bld) [#/Vol] 4.1 10*6/uL Low 4.20 - 6.0 0 m/uL [facility] WBC (Bld) [#/Vol] 7.32 10*3/uL [facility] Basophils (Bld) [#/Vol] 0.05 10*3/uL Normal <0.11 [facility] Comment on above: Order Comment: Speci men Type: BLOOD SPECIMENOrdering Facility: [facility] Address: [address] [place] [address] Performed By: #### 5 7021-8 ####[facility] [id number] [place] [address] [place] Basophils/100 WBC (Bld) 0.7 % Normal [facility] Comment on above: Order Comment: Speci men Type: BLOOD SPECIMENOrdering Facility: [facility] Address: [address] [place] [address] Performed By: #### 5 7021-8 ####[facility] [id number] [place] [address] [place] Differential cell count method Nom (Bld) Auto Normal [facility] Comment on above: Order Comment: Speci men Type: BLOOD SPECIMENOrdering Facility: [facility] Address: [address] [place] [address] Performed By: #### 5 7021-8 ####[facility] [id number] [place] [address] [place] Eosinophils (Bld) [#/Vol] 0.24 10*3/uL Normal <0.46 [facility] Comment on above: Order Comment: Speci men Type: BLOOD SPECIMENOrdering Facility: [facility] Address: [address] [place] [address] Performed By: #### 5 7021-8 ####[facility] [id number] [place] [address] [place] Eosinophils/100 WBC (Bld) 3.3 % Normal [facility] Comment on above: Order Comment: Speci men Type: BLOOD SPECIMENOrdering Facility: [facility] Address: [address] [place] [address] Performed By: #### 5 7021-8 ####[facility] [id number] [place] [address] [place] Erythrocyte distribution width (RBC) [Ratio] 13.8 % Normal 11.5-15.0 [facility] Comment on above: Order Comment: Speci men Type: BLOOD SPECIMENOrdering Facility: [facility] Address: [address] [place] [address] Performed By: #### 5 7021-8 ####[facility] [id number] [place] [address] [place] Hematocrit (Bld) [Volume fraction] 38.1 % Low 39.0-51.0 [facility] Comment on above: Order Comment: Speci men Type: BLOOD SPECIMENOrdering Facility: [facility] Address: [address] [place] [address] Performed By: #### 5 7021-8 ####[facility] [id number] [place] [address] [place] Hemoglobin (Bld) [Mass/Vol] 12.2 g/dL Low 13.0-17.0 [facility] Comment on above: Order Comment: Speci men Type: BLOOD SPECIMENOrdering Facility: [facility] Address: [address] [place] [address] Performed By: #### 5 7021-8 ####[facility] [id number] [place] [address] [place] Immature granulocytes (Bld) [#/Vol] 10*3/uL Normal <0.10 [facility] Comment on above: Order Comment: Speci men Type: BLOOD SPECIMENOrdering Facility: [facility] Address: [address] [place] [address] Performed By: #### 5 7021-8 ####[facility] [id number] [place] [address] [place] Immature granulocytes/100 WBC (Bld) 0.1 % Normal [facility] Comment on above: Order Comment: Speci men Type: BLOOD SPECIMENOrdering Facility: [facility] Address: [address] [place] [place] [address] Performed By: #### 5 7021-8 ####[facility] [id number] [place] [address] [place] Lymphocytes (Bld) [#/Vol] 3.39 10*3/uL Normal 1.00-4.00 [facility] Comment on above: Order Comment: Speci men Type: BLOOD SPECIMENOrdering Facility: [facility] Address: [address] [place] [address] Performed By: #### 5 7021-8 ####[facility] [id number] [place] [address] [place] Lymphocytes/100 WBC (Bld) 46.3 % Normal [facility] Comment on above: Order Comment: Speci men Type: BLOOD SPECIMENOrdering Facility: [facility] Address: [address] [place] [place] [address] Performed By: #### 5 7021-8 ####[facility] [id number] [place] [address] [place] MCH (RBC) [Entitic mass] 29.8 pg Normal 26.0-34.0 [facility] Comment on above: Order Comment: Speci men Type: BLOOD SPECIMENOrdering Facility: [facility] Address: [address] [place] [address] Performed By: #### 5 7021-8 ####[facility] [id number] [place] [address] [place] MCHC (RBC) [Mass/Vol] 32.0 g/dL Normal 30.5-36.0 [facility] Comment on above: Order Comment: Speci men Type: BLOOD SPECIMENOrdering Facility: [facility] Address: [address] [place] [address] Performed By: #### 5 7021-8 ####[facility] [id number] [place] [address] [place] MCV (RBC) [Entitic vol] 92.9 fL Normal 80.0-100.0 [facility] Comment on above: Order Comment: Speci men Type: BLOOD SPECIMENOrdering Facility: [facility] Address: [address] [place] [address] Performed By: #### 5 7021-8 ####[facility] [id number] [place] [address] [place] Monocytes (Bld) [#/Vol] 0.64 10*3/uL Normal <0.87 [facility] Comment on above: Order Comment: Speci men Type: BLOOD SPECIMENOrdering Facility: [facility] Address: [address] [place] [address] Performed By: #### 5 7021-8 ####[facility] [id number] [place] [address] [place] Monocytes/100 WBC (Bld) 8.7 % Normal [facility] Comment on above: Order Comment: Speci men Type: BLOOD SPECIMENOrdering Facility: [facility] Address: [address] [place] [address] Performed By: #### 5 7021-8 ####[facility] [id number] [place] [address] [place] Neutrophils (Bld) [#/Vol] 2.99 10*3/uL Normal 1.45-7.50 [facility] Comment on above: Order Comment: Speci men Type: BLOOD SPECIMENOrdering Facility: [facility] Address: [address] [place] [address] Performed By: #### 5 7021-8 ####[facility] [id number] [place] [address] [place] Neutrophils/100 WBC (Bld) 40.9 % Normal [facility] Comment on above: Order Comment: Speci men Type: BLOOD SPECIMENOrdering Facility: [facility] Address: [address] [address] [address] Performed By: #### 5 7021-8 ####[facility] [id number] [place] [address] [place] Nucleated RBC (Bld) [#/Vol] 10*3/uL Normal <0.01 [facility] Comment on above: Order Comment: Speci men Type: BLOOD SPECIMENOrdering Facility: [facility] Address: [address] [address] Performed By: #### 5 7021-8 ####[facility] [id number] [place] [address] [place] Nucleated RBC/100 WBC (Bld) [Ratio] 0.0 /100 WBC Normal [facility] Comment on above: Order Comment: Speci men Type: BLOOD SPECIMENOrdering Facility: [facility] Address: [address] [place] [address] Performed By: #### 5 7021-8 ####[facility] [id number] [place] [address] [place] Platelet mean volume (Bld) [Entitic vol] 8.8 fL Low 9.0-12.7 [facility] Comment on above: Order Comment: Speci men Type: BLOOD SPECIMENOrdering Facility: [facility] Address: [address] [address] Performed By: #### 5 7021-8 ####[facility] [id number] [address] [id number] [address] [place] Platelets (Bld) [#/Vol] 156 10*3/uL Normal 150-400 [facility] Comment on above: Order Comment: Speci men Type: BLOOD SPECIMENOrdering Facility: [facility] Address: [address] [address] Performed By: #### 5 7021-8 ####[facility] [id number] [place] [address] [place] RBC (Bld) [#/Vol] 4.10 10*6/uL Low 4.20-6.00 [facility] Comment on above: Order Comment: Speci men Type: BLOOD SPECIMENOrdering Facility: [facility] Address: [address] [place] [address] Performed By: #### 5 7021-8 ####[facility] [id number] [place] [address] [place] WBC (Bld) [#/Vol] 7.32 10*3/uL Normal 3.70-11.00 [facility] Comment on above: Order Comment: Speci men Type: BLOOD SPECIMENOrdering Facility: [facility] Address: [address] [place] [address] Performed By: #### 5 7021-8 ####[facility] [id number] [place] [address] [place] CNOVSPon 07-26-2024 CNOVSP Visit (SP) Office ([facility]) ABELARDO IVORY ([id number]) 1950 M Date Time Provider Department 07/26/24 9:20 AM CHRISTIANSON, CODEY H[facility]3 During your visit today, we recorded the following information about you: Temperature Pulse Respiration Blood pressure 97.3 degrees 50/minute 18/minute 150/67 Weight Height 71.1 kg 1.676 m Karen Verdugo LPN 08/07/2024 2:06 PM Signed Additional intake questions: Has the patient had fever, nausea, vomiting, diarrhea, constipation, fatigue for > 1 week? No Does the patient have a decreased appetite? No Does patient want to see a Pasting Inspector? No (yes to any of above refer patient to schedulers for dietitian appointment) ) Does patient have any new or increased numbness or tingling of extremities? No Is patient interested in fertility information? No Does patient need any prescription refills? No Does patient have an advanced directive in place? Yes, copies are in Debteye Electronically Signed By: SUDHA Davis Lisa, LPN 08/07/2024 2:06 PM Signed Additional intake questions: Has the patient had fever, nausea, vomiting, diarrhea, constipation, fatigue for > 1 week? No Does the patient have a decreased appetite? No Does patient want to see a Pasting Inspector? No (yes to any of above refer patient to schedulers for dietitian appointment) ) Does patient have any new or increased numbness or tingling of extremities? No Is patient interested in fertility information? No Does patient need any prescription refills? No Does patient have an advanced directive in place? Yes, copies are in Debteye Electronically Signed By: SUDHA Davis Shilpa, MD 08/07/2024 2:06 PM Signed [facility] ON[facility] INITIAL CONSULT NOTE Date of Service: [...] 0 a (more content not included)... Normal [facility] Comprehensive metabolic 2000 panelon 07-26-2024 Albumin [Mass/Vol] 4.2 g/dL 3.9 - 4.9 g/dL [facility] ALP [Catalytic activity/Vol] 76 U/L 38 - 113 U/L [facility] ALT [Catalytic activity/Vol] 12 U/L 10 - 54 U/L [facility] Anion gap [Moles/Vol] 13 mmol/L 8 - 15 mmol/L [facility] AST [Catalytic activity/Vol] 19 U/L 14 - 40 U/L [facility] Bilirubin [Mass/Vol] 0.3 mg/dL 0.2 - 1 .3 mg/dL [facility] Calcium [Mass/Vol] 9.3 mg/dL 8.5 - 10. 2 mg/dL [facility] Chloride [Moles/Vol] 103 mmol/L 98 - 10 7 mmol/L [facility] CO2 [Moles/Vol] 23 mmol/L 22 - 30 mmol/L [facility] Creatinine [Mass/Vol] 1.54 mg/dL High 0.73 - 1.22 mg/dL [facility] GFR/1.73 sq M.predicted among non-blacks MDRD (S/P/Bld) [Vol rate/Area] 47 mL/min/{1.73_m2} Low - PINF [facility] Comment on above: Estimated Glomerular Filtration Rate [...] 106 mg/dL High 74 - 99 mg/dL [facility] Comment on above: The [place] [employer] Association (ADA) provides guidance for [...] Standards of Medical Care in Diabetes 2016, [place] [employer]. Diabetes Care. 2016.39(Suppl 1). Interpretation and review of laboratory results Abnormal [facility] Potassium [Moles/Vol] 4.9 mmol/L 3.7 - 5.1 mmol/L [facility] Protein [Mass/Vol] 7.1 g/dL 6.3 - 8.0 g/dL [facility] Sodium [Moles/Vol] 139 mmol/L 136 - 144 mmol/L [facility] Urea nitrogen [Mass/Vol] 34 mg/dL High 9 - 24 mg/dL [facility] Albumin [Mass/Vol] 4.2 g/dL Normal 3.9-4.9 [facility] Comment on above: Order Comment: Speci men Type: BLOOD SPECIMENOrdering Facility: [facility] Address: [address] [address] Performed By: #### 2 4323-8 ####[facility] [id number] [place] [address] [place] ALP [Catalytic activity/Vol] 76 U/L Normal 38-113 [facility] Comment on above: Order Comment: Speci men Type: BLOOD SPECIMENOrdering Facility: [facility] Address: [address] [place] [address] Performed By: #### 2 4323-8 ####[facility] [id number] [place] [address] [place] ALT [Catalytic activity/Vol] 12 U/L Normal 10-54 [facility] Comment on above: Order Comment: Speci men Type: BLOOD SPECIMENOrdering Facility: [facility] Address: [address] [place] [address] Performed By: #### 2 4323-8 ####[facility] [id number] [place] [address] [place] Anion gap [Moles/Vol] 13 mmol/L Normal 8-15 [facility] Comment on above: Order Comment: Speci men Type: BLOOD SPECIMENOrdering Facility: [facility] Address: [address] [place] [address] Performed By: #### 2 4323-8 ####[facility] [id number] [place] [address] [place] AST [Catalytic activity/Vol] 19 U/L Normal 14-40 [facility] Comment on above: Order Comment: Speci men Type: BLOOD SPECIMENOrdering Facility: [facility] Address: [address] [place] [address] Performed By: #### 2 4323-8 ####[facility] [id number] [place] [address] [place] Bilirubin [Mass/Vol] 0.3 mg/dL Normal 0.2-1.3 [facility] Comment on above: Order Comment: Speci men Type: BLOOD SPECIMENOrdering Facility: [facility] Address: [address] [place] [address] Performed By: #### 2 4323-8 ####[facility] [id number] [place] [address] [place] Calcium [Mass/Vol] 9.3 mg/dL Normal 8.5-10.2 [facility] Comment on above: Order Comment: Speci men Type: BLOOD SPECIMENOrdering Facility: [facility] Address: [address] [place] [address] Performed By: #### 2 4323-8 ####[facility] [id number] [place] [address] [place] Chloride [Moles/Vol] 103 mmol/L Normal 98-107 [facility] Comment on above: Order Comment: Speci men Type: BLOOD SPECIMENOrdering Facility: [facility] Address: [address] [place] [address] Performed By: #### 2 4323-8 ####[facility] [id number] [place] [address] [place] CO2 [Moles/Vol] 23 mmol/L Normal 22-30 [facility] Comment on above: Order Comment: Speci men Type: BLOOD SPECIMENOrdering Facility: [facility] Address: [address] [place] [address] Performed By: #### 2 4323-8 ####[facility] [id number] [place] [address] [place] Creatinine [Mass/Vol] 1.54 mg/dL High 0.73-1.22 [facility] Comment on above: Order Comment: Speci men Type: BLOOD SPECIMENOrdering Facility: [facility] Address: [address] [place] [address] Performed By: #### 2 4323-8 ####[facility] [id number] [place] [address] [place] [facility] Creatinine and Glomerular filtration rate.predicted panel (S/P/Bld) 47 mL/min/1.73m??? Low >=60 [facility] Comment on above: Order Comment: Speci men Type: BLOOD SPECIMENOrdering Facility: [facility] Address: [address] [place] [address] Result Comment: Amy mated Glomerular Filtration Rate [...] actual GFR. Performed By: #### 2 4323-8 ####[facility] [id number] [place] [address] [place] Glucose [Mass/Vol] 106 mg/dL High 74-99 [facility] Comment on above: Order Comment: Speci men Type: BLOOD SPECIMENOrdering Facility: [facility] Address: [address] [place] [address] Result Comment: The [place] Diabetes Association (ADA) provides guidance for cutoff [...] Standards of Medical Care in Diabetes 2016, [place] [employer]. Diabetes Care. 2016.39(Suppl 1). Performed By: #### 2 4323-8 ####[facility] [id number] [place] [address] [place] Potassium [Moles/Vol] 4.9 mmol/L Normal 3.7-5.1 [facility] Comment on above: Order Comment: Speci men Type: BLOOD SPECIMENOrdering Facility: [facility] Address: [address] [place] [address] Performed By: #### 2 4323-8 ####[facility] [id number] [place] [address] [place] Protein [Mass/Vol] 7.1 g/dL Normal 6.3-8.0 [facility] Comment on above: Order Comment: Speci men Type: BLOOD SPECIMENOrdering Facility: [facility] Address: [address] [place] [address] Performed By: #### 2 4323-8 ####[facility] [id number] [place] [address] [place] Sodium [Moles/Vol] 139 mmol/L Normal 136-144 [facility] Comment on above: Order Comment: Speci men Type: BLOOD SPECIMENOrdering Facility: [facility] Address: [address] [place] [address] Performed By: #### 2 4323-8 ####[facility] [id number] [place] [address] [place] Urea nitrogen [Mass/Vol] 34 mg/dL High 10-31 [facility] Comment on above: Order Comment: Speci men Type: BLOOD SPECIMENOrdering Facility: [facility] Address: [address] [place] [address] Performed By: #### 2 4323-8 ####[facility] [id number] [address] [place] Anion gap in Serum or Plasma Ordered By: Padmini Carrasco on 07-09-2024 Anion gap [Moles/Vol] 10 mmol/L 5-15 [facility] BUN/creatinine ratioOrdered By: Padmini Carrasco on 07-09-2024 Urea nitrogen/Creatinine [Mass ratio] 22.0 mg/mg High - [facility] Basic Metabolic Profile (BMP )on 07-09-2024 BUN/CRE 22.0 RATIO High - [facility] Comment on above: Order Comment: Order Date: 10/12/23 Order Info: 0786-1 - CMP Order Info: [id number] - LIPID Order Info: 301-3 - TSH Order Info: 2857-1 - PSA Order Info: 2498-4 - FE Performed By: #### L 506.1001, L509.1000, L503.0106 #### [facility] [address] [place], [address] Calcium [Mass/Vol] 9.2 mg/dL Normal 7.6-11.0 [facility] Comment on above: Order Comment: Order Date: 10/12/23 Order Info: 0786-1 - CMP Order Info: [id number] - LIPID Order Info: 301-3 - TSH Order Info: 2857-1 - PSA Order Info: 2498-4 - FE Performed By: #### L 506.1001, L509.1000, L503.0106 #### [facility] [address] [place], [address] Chloride [Moles/Vol] 105 mmol/L Normal 98-108 [facility] Comment on above: Order Comment: Order Date: 10/12/23 Order Info: 0786-1 - CMP Order Info: [id number] - LIPID Order Info: 3 - TSH Order Info: 2851 - PSA Order Info: 2498-4 - FE Performed By: #### L 506.1001, L509.1000, L503.0106 #### [facility] [address] [place], [address] CO2 [Moles/Vol] 26.1 mmol/L Normal 21.0-32.0 [facility] Comment on above: Order Comment: Order Date: 10/12/23 Order Info: 785-1 - CMP Order Info: [id number] - LIPID Order Info: 3015-3 - TSH Order Info: 2851 - PSA Order Info: 2498-4 - FE Performed By: #### L 506.1001, L509.1000, L503.0106 #### [facility] [address] [place], [address] Creatinine [Mass/Vol] 1.74 mg/dL High 0.70-1.20 [facility] Comment on above: Order Comment: Order Date: 10/12/23 Order Info: 0786-1 - CMP Order Info: [id number] - LIPID Order Info: 3 - TSH Order Info: 2851 - PSA Order Info: 2498-4 - FE Performed By: #### L 506.1001, L509.1000, L503.0106 #### [facility] [address] [place], [address] GAP 10 Normal 5-15 [facility] Comment on above: Order Comment: Order Date: 10/12/23 Order Info: 785-1 - CMP Order Info: - LIPID Order Info: [id number] - TSH Order Info: 2856-02 - PSA Order Info: 2497-05 - FE Performed By: #### L 506.1001, L509.1000, L503.0106 #### [facility] [address] [place], [address] GFR/1.73 sq M.predicted among non-blacks MDRD (S/P/Bld) [Vol rate/Area] 41 mL/min/{1.73_m2} Low >60 [facility] Comment on above: Order Comment: Order Date: 10/12/23 Order Info: 785- - CMP Order Info: - LIPID Order Info: [id number] - TSH Order Info: 2856-02 - PSA Order Info: 2497-05 - Result Comment: mL/m in/1.73m2 CKD-EPI Creatinine Equation (2020) Performed By: #### L 506.1001, L509.1000, L503.0106 #### [facility] [address] [place], [address] Glucose [Mass/Vol] 108 mg/dL High 70-99 [facility] Comment on above: Order Comment: Order Date: 10/12/23 Order Info: 785- - CMP Order Info: [id number] - LIPID Order Info: [id number] - TSH Order Info: 2856-02 - PSA Order Info: 2497-05 - FE Performed By: #### L 506.1001, L509.1000, L503.0106 #### [facility] [address] [place], [address] Potassium [Moles/Vol] 4.8 mmol/L Normal 3.3-5.1 [facility] Comment on above: Order Comment: Order Date: 10/12/23 Order Info: 785- - CMP Order Info: - LIPID Order Info: [id number] - TSH Order Info: [id number] - PSA Order Info: 2497-05 - FE Performed By: #### L 506.1001, L509.1000, L503.0106 #### [facility] [address] [place], [address] Sodium [Moles/Vol] 141 mmol/L Normal 133-145 [facility] Comment on above: Order Comment: Order Date: 10/12/23 Order Info: 0786-1 - CMP Order Info: [id number] - LIPID Order Info: 3016-3 - TSH Order Info: 2857 - PSA Order Info: 2497-05 - FE Performed By: #### L 506.1001, L509.1000, L503.0106 #### [facility] [address] [place], [address] Urea nitrogen [Mass/Vol] 38 mg/dL High 4-19 [facility] Comment on above: Order Comment: Order Date: 10/12/23 Order Info: 0786-1 - CMP Order Info: [id number] - LIPID Order Info: 6-3 - TSH Order Info: [id number] - PSA Order Info: 2497-05 - FE Performed By: #### L 506.1001, L509.1000, L503.0106 #### [facility] [address] [place], [place], [address] Carbon dioxide, total [Moles /volume] in Central venous bloodOrdered By: Padmini Carrasco on 07-09-2024 CO2 [Moles/Vol] 26.1 mmol/L 21.0-32.0 [facility] Chloride assayOrdered By: Rambo Carrasco on 07-09-2024 Chloride [Moles/Vol] 105 mmol/L 98-108 [facility] Glomerular filtration rate ( GFR) estimation/1.73 sq m using serum, plasma, or whole bOrdered By: Padmini Carrasco on 07-09-2024 GFR/1.73 sq M.predicted among non-blacks MDRD (S/P/Bld) [Vol rate/Area] 41 mL/min/{1.73_m2} Low >60 [facility] Comment on above: mL/min/1.73m2 CKD-EP I Creatinine Equation (2020) Potassium measurement (mass/ volume)Ordered By: Padmini Carrasco on 07-09-2024 Potassium (Unsp spec) [Mass/Vol] 4.8 mmol/L 3.3-5.1 [facility] Serum creatinine measurement (mass/volume)Ordered By: Padmini Carrasco on 07-09-2024 Creatinine [Mass/Vol] 1.74 mg/dL High 0.70-1.20 [facility] Serum glucose measurement (m ass/volume)Ordered By: Padmini Carrasco on 07-09-2024 Glucose [Mass/Vol] 108 mg/dL High 70-99 [facility] Serum or plasma calcium jamel urement (mass/volume)Ordered By: Padmini Carrasco on 07-09-2024 Calcium [Mass/Vol] 9.2 mg/dL 7.6-11.0 [facility] Serum or plasma urea nitroge n measurement (mass/volume)Ordered By: Padmini Carrasco on 07-09-2024 Urea nitrogen [Mass/Vol] 38 mg/dL High - [facility] Sodium levelOrdered By: Jaz Carrasco on 07-09-2024 Sodium [Moles/Vol] 141 mmol/L 133-145 [facility] Basic Metabolic Profile (BMP )on 06-30-2024 BUN Normal - [facility] Comment on above: Result Comment: Canc elled via OM: Order cancelled - Patient discharged Performed By: #### L 100.0100, L500.2500 #### [facility] [address] [place], [address] BUN/CRE Normal - [facility] Comment on above: Result Comment: Canc elled via OM: Order cancelled - Patient discharged Performed By: #### L 100.0100, L500.2500 #### [facility] [address] [place], [address] Calcium Normal 7.6-11.0 [facility] Comment on above: Result Comment: Canc elled via OM: Order cancelled - Patient discharged Performed By: #### L 100.0100, L500.2500 #### [facility] [address] [place], [address] CL Normal 98-108 [facility] Comment on above: Result Comment: Canc elled via OM: Order cancelled - Patient discharged Performed By: #### L 100.0100, L500.2500 #### [facility] [address] [place], [address] CO2 Normal 21.0-32.0 [facility] Comment on above: Result Comment: Canc elled via OM: Order cancelled - Patient discharged Performed By: #### L 100.0100, L500.2500 #### [facility] [address] [place], [address] CREAT,SERUM Normal 0.70-1.20 [facility] Comment on above: Result Comment: Canc elled via OM: Order cancelled - Patient discharged Performed By: #### L 100.0100, L500.2500 #### [facility] [address] [place], [address] eGFR Normal >60 [facility] Comment on above: Result Comment: Canc elled via OM: Order cancelled - Patient discharged Performed By: #### L 100.0100, L500.2500 #### [facility] [address] [place], [address] GAP Normal 5-15 [facility] Comment on above: Result Comment: Canc elled via OM: Order cancelled - Patient discharged Performed By: #### L 100.0100, L500.2500 #### [facility] [address] [place], [address] GLU Normal 70-99 [facility] Comment on above: Result Comment: Canc elled via OM: Order cancelled - Patient discharged Performed By: #### L 100.0100, L500.2500 #### [facility] [address] [place], [address] Potassium Normal 3.3-5.1 [facility] Comment on above: Result Comment: Canc elled via OM: Order cancelled - Patient discharged Performed By: #### L 100.0100, L500.2500 #### [facility] [address] [place], [address] Basic Metabolic Profile (BMP) Normal 133-145 [facility] Comment on above: Result Comment: Canc elled via OM: Order cancelled - Patient discharged Performed By: #### L 100.0100, L500.2500 #### [facility] [address] [place], [address] CBC W/Diff, Automatedon 05-2 Absolute Neut Normal 2.0-7.7 [facility] Comment on above: Result Comment: Canc elled via OM: Order cancelled - Patient discharged Performed By: #### L 100.0100, L500.2500 #### [facility] [address] [place], [address] HCT Normal 40-54 [facility] Comment on above: Result Comment: Canc elled via OM: Order cancelled - Patient discharged Performed By: #### L 100.0100, L500.2500 #### [facility] [address] [place], [address] HGB Normal 13.0-16.5 [facility] Comment on above: Result Comment: Canc elled via OM: Order cancelled - Patient discharged Performed By: #### L 100.0100, L500.2500 #### [facility] [address] [place], [address] MCH Normal 27.0-32.0 [facility] Comment on above: Result Comment: Canc elled via OM: Order cancelled - Patient discharged Performed By: #### L 100.0100, L500.2500 #### [facility] [address] [place], [address] MCHC Normal 32-36 [facility] Comment on above: Result Comment: Canc elled via OM: Order cancelled - Patient discharged Performed By: #### L 100.0100, L500.2500 #### [facility] [address] [place], [address] MCV Normal 80-94 [facility] Comment on above: Result Comment: Canc elled via OM: Order cancelled - Patient discharged Performed By: #### L 100.0100, L500.2500 #### [facility] [address] [place], [address] NEUT% Normal 47-70 [facility] Comment on above: Result Comment: Canc elled via OM: Order cancelled - Patient discharged Performed By: #### L 100.0100, L500.2500 #### [facility] [address] [place], [address] PLT Normal 150-450 [facility] Comment on above: Result Comment: Canc elled via OM: Order cancelled - Patient discharged Performed By: #### L 100.0100, L500.2500 #### [facility] [address] [place], [address] RBC Normal 4.6-6.2 [facility] Comment on above: Result Comment: Canc elled via OM: Order cancelled - Patient discharged Performed By: #### L 100.0100, L500.2500 #### [facility] [address] [place], [address] RDW CV Normal 11.6-14.6 [facility] Comment on above: Result Comment: Canc elled via OM: Order cancelled - Patient discharged Performed By: #### L 100.0100, L500.2500 #### [facility] [address] [place], [address] RDW SD Normal 35.1-43.9 [facility] Comment on above: Result Comment: Canc elled via OM: Order cancelled - Patient discharged Performed By: #### L 100.0100, L500.2500 #### [facility] [address] [place], [address] WBC Normal 4.4-11.0 [facility] Comment on above: Result Comment: Canc elled via OM: Order cancelled - Patient discharged Performed By: #### L 100.0100, L500.2500 #### [facility] [address] [place], [address] Basic Metabolic Profile (BMP )on 06-29-2024 BUN Normal 4-19 [facility] Comment on above: Result Comment: Canc elled via OM: Order cancelled - Patient discharged Performed By: #### L 506.1001, L509.1000, L503.0106 #### [facility] [address] [place], [address] BUN/CRE Normal 10-20 [facility] Comment on above: Result Comment: Canc elled via OM: Order cancelled - Patient discharged Performed By: #### L 506.1001, L509.1000, L503.0106 #### [facility] [address] [place], [address] Calcium Normal 7.6-11.0 [facility] Comment on above: Result Comment: Canc elled via OM: Order cancelled - Patient discharged Performed By: #### L 506.1001, L509.1000, L503.0106 #### [facility] [address] [place], [address] CL Normal 98-108 [facility] Comment on above: Result Comment: Canc elled via OM: Order cancelled - Patient discharged Performed By: #### L 506.1001, L509.1000, L503.0106 #### [facility] [address] [place], [address] CO2 Normal 21.0-32.0 [facility] Comment on above: Result Comment: Canc elled via OM: Order cancelled - Patient discharged Performed By: #### L 506.1001, L509.1000, L503.0106 #### [facility] [address] [place], [address] CREAT,SERUM Normal 0.70-1.20 [facility] Comment on above: Result Comment: Canc elled via OM: Order cancelled - Patient discharged Performed By: #### L 506.1001, L509.1000, L503.0106 #### [facility] [address] [place], [address] eGFR Normal >60 [facility] Comment on above: Result Comment: Canc elled via OM: Order cancelled - Patient discharged Performed By: #### L 506.1001, L509.1000, L503.0106 #### [facility] [address] [place], [address] GAP Normal 5-15 [facility] Comment on above: Result Comment: Canc elled via OM: Order cancelled - Patient discharged Performed By: #### L 506.1001, L509.1000, L503.0106 #### [facility] [address] [place], [address] GLU Normal 70-99 [facility] Comment on above: Result Comment: Canc elled via OM: Order cancelled - Patient discharged Performed By: #### L 506.1001, L509.1000, L503.0106 #### [facility] [address] [place], [address] Potassium Normal 3.3-5.1 [facility] Comment on above: Result Comment: Canc elled via OM: Order cancelled - Patient discharged Performed By: #### L 506.1001, L509.1000, L503.0106 #### [facility] [address] [place], [address] Basic Metabolic Profile (BMP) Normal 133-145 [facility] Comment on above: Result Comment: Canc elled via OM: Order cancelled - Patient discharged Performed By: #### L 506.1001, L509.1000, L503.0106 #### [facility] [address] [place], [address] CBC W/Diff, Automatedon 05-2 Absolute Neut Normal 2.0-7.7 [facility] Comment on above: Result Comment: Canc elled via OM: Order cancelled - Patient discharged Performed By: #### L 506.1001, L509.1000, L503.0106 #### [facility] [address] [place], [address] HCT Normal 40-54 [facility] Comment on above: Result Comment: Canc elled via OM: Order cancelled - Patient discharged Performed By: #### L 506.1001, L509.1000, L503.0106 #### [facility] [address] [place], [address] HGB Normal 13.0-16.5 [facility] Comment on above: Result Comment: Canc elled via OM: Order cancelled - Patient discharged Performed By: #### L 506.1001, L509.1000, L503.0106 #### [facility] [address] [place], [address] MCH Normal 27.0-32.0 [facility] Comment on above: Result Comment: Canc elled via OM: Order cancelled - Patient discharged Performed By: #### L 506.1001, L509.1000, L503.0106 #### [facility] [address] [place], [address] MCHC Normal 32-36 [facility] Comment on above: Result Comment: Canc elled via OM: Order cancelled - Patient discharged Performed By: #### L 506.1001, L509.1000, L503.0106 #### [facility] [address] [place], [address] MCV Normal 80-94 [facility] Comment on above: Result Comment: Canc elled via OM: Order cancelled - Patient discharged Performed By: #### L 506.1001, L509.1000, L503.0106 #### [facility] [address] [place], [address] NEUT% Normal 47-70 [facility] Comment on above: Result Comment: Canc elled via OM: Order cancelled - Patient discharged Performed By: #### L 506.1001, L509.1000, L503.0106 #### [facility] [address] [place], [address] PLT Normal 150-450 [facility] Comment on above: Result Comment: Canc elled via OM: Order cancelled - Patient discharged Performed By: #### L 506.1001, L509.1000, L503.0106 #### [facility] [address] [place], [address] RBC Normal 4.6-6.2 [facility] Comment on above: Result Comment: Canc elled via OM: Order cancelled - Patient discharged Performed By: #### L 506.1001, L509.1000, L503.0106 #### [facility] [address] [place], [address] RDW CV Normal 11.6-14.6 [facility] Comment on above: Result Comment: Canc elled via OM: Order cancelled - Patient discharged Performed By: #### L 506.1001, L509.1000, L503.0106 #### [facility] [address] [place], [address] RDW SD Normal 35.1-43.9 [facility] Comment on above: Result Comment: Canc elled via OM: Order cancelled - Patient discharged Performed By: #### L 506.1001, L509.1000, L503.0106 #### [facility] [address] [place], [address] WBC Normal 4.4-11.0 [facility] Comment on above: Result Comment: Canc elled via OM: Order cancelled - Patient discharged Performed By: #### L 506.1001, L509.1000, L503.0106 #### [facility] [address] [place], [address] Absolute lymphocyte countOrd ered By: Jose J Mcclendon on 06-28-2024 Lymphocytes Auto (Unsp spec) [#/Vol] 0.97 10*3/uL 0.83-4.51 [facility] Absolute neutrophil countOrd ered By: Jose J Mcclendon on 06-28-2024 Neutrophils (Bld) [#/Vol] 6.6 10*3/uL 2.0-7.7 [facility] Anion gap in Serum or Plasma Ordered By: Jose J Mcclendon on 06-28-2024 Anion gap [Moles/Vol] 12 mmol/L 5-15 [facility] Automated lymphocyte count a s percentage of total leukocytesOrdered By: Jose J Mcclendon on 06-28-2024 Lymphocytes/100 WBC Auto (Unsp spec) 11.9 % Low 19-41 [facility] BUN/creatinine ratioOrdered By: Jose J Mcclendon on 06-28-2024 Urea nitrogen/Creatinine [Mass ratio] 16.4 mg/mg 10-20 [facility] Basic Metabolic Profile (BMP )on 06-28-2024 BUN/CRE 16.4 RATIO Normal - [facility] Comment on above: Performed By: #### L 506.1001, L509.1000, L503.0106 #### [facility] [address] [place], [address] Calcium [Mass/Vol] 8.1 mg/dL Normal 7.6-11.0 [facility] Comment on above: Performed By: #### L 506.1001, L509.1000, L503.0106 #### [facility] [address] [place], [address] Chloride [Moles/Vol] 102 mmol/L Normal 98-108 [facility] Comment on above: Performed By: #### L 506.1001, L509.1000, L503.0106 #### [facility] [address] [place], [address] CO2 [Moles/Vol] 20.1 mmol/L Low 21.0-32.0 [facility] Comment on above: Performed By: #### L 506.1001, L509.1000, L503.0106 #### [facility] [address] [place], [address] Creatinine [Mass/Vol] 2.95 mg/dL High 0.70-1.20 [facility] Comment on above: Performed By: #### L 506.1001, L509.1000, L503.0106 #### [facility] [address] [place], [address] ECRCL 19.82 ml/min Low 50-250 [facility] Comment on above: Performed By: #### L 506.1001, L509.1000, L503.0106 #### [facility] [address] [place], [address] GAP 12 Normal 5-15 [facility] Comment on above: Performed By: #### L 506.1001, L509.1000, L503.0106 #### [facility] [address] [place], [address] GFR/1.73 sq M.predicted among non-blacks MDRD (S/P/Bld) [Vol rate/Area] 22 mL/min/{1.73_m2} Low >60 [facility] Comment on above: Result Comment: mL/m in/1.73m2 CKD-EPI Creatinine Equation (2020) Performed By: #### L 506.1001, L509.1000, L503.0106 #### [facility] [address] [place], [address] Glucose [Mass/Vol] 132 mg/dL High 70-99 [facility] Comment on above: Performed By: #### L 506.1001, L509.1000, L503.0106 #### [facility] [address] [place], [address] Potassium [Moles/Vol] 5.6 mmol/L High 3.3-5.1 [facility] Comment on above: Performed By: #### L 506.1001, L509.1000, L503.0106 #### [facility] [address] [place], [address] Sodium [Moles/Vol] 133 mmol/L Normal 133-145 [facility] Comment on above: Performed By: #### L 506.1001, L509.1000, L503.0106 #### [facility] [address] [place], [address] Urea nitrogen [Mass/Vol] 48 mg/dL High 4-19 [facility] Comment on above: Performed By: #### L 506.1001, L509.1000, L503.0106 #### [facility] [address] [place], [address] Basophil percentageOrdered B y: Jose J Catrachito on 06-28-2024 Basophils/100 WBC (Bld) 0.1 % 0-1 [facility] CBC W/Diff, Automatedon 06-08 Absolute Lymph 0.97 X10 3/uL Normal 0.83-4.51 [facility] Comment on above: Performed By: #### L 506.1001, L509.1000, L503.0106 #### [facility] [address] [place], [address] Absolute Neut 6.6 X10 3/uL Normal 2.0-7.7 [facility] Comment on above: Performed By: #### L 506.1001, L509.1000, L503.0106 #### [facility] [address] [place], [address] Basophils/100 WBC (Bld) 0.1 % Normal 0-1 [facility] Comment on above: Performed By: #### L 506.1001, L509.1000, L503.0106 #### [facility] [address] [place], [address] Eosinophils/100 WBC (Bld) 0.0 % Normal 0-5 [facility] Comment on above: Performed By: #### L 506.1001, L509.1000, L503.0106 #### [facility] [address] [place], [address] Erythrocyte distribution width (RBC) [Ratio] 13.6 % Normal 11.6-14.6 [facility] Comment on above: Performed By: #### L 506.1001, L509.1000, L503.0106 #### [facility] [address] [place], [address] Hematocrit (Bld) [Volume fraction] 36.7 % Low 40-54 [facility] Comment on above: Performed By: #### L 506.1001, L509.1000, L503.0106 #### [facility] [address] [place], [address] Hemoglobin (Bld) [Mass/Vol] 12.0 g/dL Low 13.0-16.5 [facility] Comment on above: Performed By: #### L 506.1001, L509.1000, L503.0106 #### [facility] [address] [place], [address] IG% 0.200 Normal 0.0-0.9 [facility] Comment on above: Result Comment: IG% - Immature Granulocytes (promyelocytes, myelocytes and metamyelocytes) > 1% indicates that a LEFT SHIFT is Present. Performed By: #### L 506.1001, L509.1000, L503.0106 #### [facility] [address] [place], [address] Lymphocytes/100 WBC (Bld) 11.9 % Low 19-41 [facility] Comment on above: Performed By: #### L 506.1001, L509.1000, L503.0106 #### [facility] [address] [place], [address] MCH (RBC) [Entitic mass] 30.5 pg Normal 27.0-32.0 [facility] Comment on above: Performed By: #### L 506.1001, L509.1000, L503.0106 #### [facility] [address] [place], [address] MCHC (RBC) [Mass/Vol] 32.7 g/dL Normal 32-36 [facility] Comment on above: Performed By: #### L 506.1001, L509.1000, L503.0106 #### [facility] [address] [place], [address] MCV (RBC) [Entitic vol] 93.4 fL Normal 80-94 [facility] Comment on above: Performed By: #### L 506.1001, L509.1000, L503.0106 #### [facility] [address] [place], [address] Monocytes/100 WBC (Bld) 7.0 % Normal 0-10 [facility] Comment on above: Performed By: #### L 506.1001, L509.1000, L503.0106 #### [facility] [address] [place], [address] Neutrophils/100 WBC (Bld) 80.8 % High 47-70 [facility] Comment on above: Performed By: #### L 506.1001, L509.1000, L503.0106 #### [facility] [address] [place], [address] Nucleated RBC (Bld) [#/Vol] 0 10*3/uL Normal 0-5 [facility] Comment on above: Performed By: #### L 506.1001, L509.1000, L503.0106 #### [facility] [address] [place], [address] Platelet mean volume (Bld) [Entitic vol] 9.1 fL Normal 6.2-12.0 [facility] Comment on above: Performed By: #### L 506.1001, L509.1000, L503.0106 #### [facility] [address] [place], [address] Platelets (Bld) [#/Vol] 175 10*3/uL Normal 150-450 [facility] Comment on above: Performed By: #### L 506.1001, L509.1000, L503.0106 #### [facility] [address] [place], [address] RBC (Bld) [#/Vol] 3.93 10*6/uL Low 4.6-6.2 [facility] Comment on above: Performed By: #### L 506.1001, L509.1000, L503.0106 #### [facility] [address] [place], [address] RDW SD 46.7 fl High 35.1-43.9 [facility] Comment on above: Performed By: #### L 506.1001, L509.1000, L503.0106 #### [facility] [address] [place], [address] WBC (Bld) [#/Vol] 8.1 10*3/uL Normal 4.4-11.0 [facility] Comment on above: Performed By: #### L 506.1001, L509.1000, L503.0106 #### [facility] [address] [place], [address] Carbon dioxide, total [Moles /volume] in Central venous bloodOrdered By: Jose J Mcclendon on 06-28-2024 CO2 [Moles/Vol] 20.1 mmol/L Low 21.0-32.0 [facility] Chloride assayOrdered By: Kelly Mcclendon on 06-28-2024 Chloride [Moles/Vol] 102 mmol/L 98-108 [facility] Eosinophil percentageOrdered By: Jose J Mcclendon on 06-28-2024 Eosinophils/100 WBC (Bld) 0.0 % 0-5 [facility] Erythrocyte distribution wid th ratioOrdered By: Jose J Mcclendon on 06-28-2024 Erythrocyte distribution width (RBC) [Ratio] 13.6 % 11.6-14.6 [facility] Erythrocyte distribution wid th standard deviationOrdered By: Jose J Mcclendon on 06-28-2024 Erythrocyte distribution width (RBC) [Ratio] 46.7 fl High 35.1-43.9 [facility] Glomerular filtration rate ( GFR) estimation/1.73 sq m using serum, plasma, or whole bOrdered By: Jose J Mcclendon on 06-28-2024 GFR/1.73 sq M.predicted among non-blacks MDRD (S/P/Bld) [Vol rate/Area] 22 mL/min/{1.73_m2} Low >60 [facility] Comment on above: mL/min/1.73m2 CKD-EP I Creatinine Equation (2020) Hematocrit Auto (Bld) [Volum e fraction]Ordered By: Jose J Mcclendon on 06-28-2024 Hematocrit (Bld) [Volume fraction] 36.7 % Low 40-54 [facility] Hemoglobin measurementOrdere d By: Jose J Mcclendon on 06-28-2024 Hemoglobin (Bld) [Mass/Vol] 12.0 g/dL Low 13.0-16.5 [facility] Immature granulocytes/100 WB C Auto (Bld)Ordered By: Jose J Mcclendon on 06-28-2024 Immature granulocytes/100 WBC (Bld) 0.200 % 0.0-0.9 [facility] Comment on above: IG% - Immature Granu locytes (promyelocytes, myelocytes and metamyelocytes) > 1% indicates that a LEFT SHIFT is Present. MCV (mean corpuscular volume ) determinationOrdered By: Jose J Mcclendon on 06-28-2024 MCV (RBC) [Entitic vol] 93.4 fL 80-94 [facility] Mean corpuscular hemoglobin (MCH) determinationOrdered By: Jose J Mcclendon on 06-28-2024 MCH (RBC) [Entitic mass] 30.5 pg 27.0-32.0 [facility] Mean corpuscular hemoglobin concentration (MCHC) determinationOrdered By: Jose J Mcclendon on 06-28-2024 MCHC (RBC) [Mass/Vol] 32.7 g/dL 32-36 [facility] Mean platelet volume determi nationOrdered By: Jose J Mcclendon on 06-28-2024 Platelet mean volume (Bld) [Entitic vol] 9.1 fL 6.2-12.0 [facility] Monocyte percentageOrdered B y: Jose J Mcclendon on 06-28-2024 Monocytes/100 WBC (Bld) 7.0 % 0-10 [facility] Neutrophil percentageOrdered By: Jose J Mcclendon on 06-28-2024 Neutrophils/100 WBC (Bld) 80.8 % High 47-70 [facility] Nucleated red blood cell per centageOrdered By: Jose J Mcclendon on 06-28-2024 Nucleated RBC/100 WBC (Bld) [Ratio] 0 % 0-5 [facility] Platelet countOrdered By: Kelly Mcclendon on 06-28-2024 Platelets (Bld) [#/Vol] 175 10*3/uL 150-450 [facility] Potassiumon 06-28-2024 Potassium [Moles/Vol] 5.0 mmol/L Normal 3.3-5.1 [facility] Comment on above: Performed By: #### L 501.5600 ####[facility] [address] [place], [address] Potassium measurement (mass/ volume)Ordered By: Jose J Mcclendon on 06-28-2024 Potassium (Unsp spec) [Mass/Vol] 5.0 mmol/L 3.3-5.1 [facility] RBC Auto (Bld) [#/Vol]Ordere d By: Jose J Mcclendon on 06-28-2024 RBC (Bld) [#/Vol] 3.93 10*6/uL Low 4.6-6.2 [facility] Serum creatinine measurement (mass/volume)Ordered By: Jose J Mcclendon on 06-28-2024 Creatinine [Mass/Vol] 2.95 mg/dL High 0.70-1.20 [facility] Serum glucose measurement (m ass/volume)Ordered By: Jose J Mcclendon on 06-28-2024 Glucose [Mass/Vol] 132 mg/dL High 70-99 [facility] Serum or plasma calcium jamel urement (mass/volume)Ordered By: Jose J Mcclendon on 06-28-2024 Calcium [Mass/Vol] 8.1 mg/dL 7.6-11.0 [facility] Serum or plasma urea nitroge n measurement (mass/volume)Ordered By: Jose J Mcclendon on 06-28-2024 Urea nitrogen [Mass/Vol] 48 mg/dL High 4-19 [facility] Sodium levelOrdered By: Jose J Mcclendon on 06-28-2024 Sodium [Moles/Vol] 133 mmol/L 133-145 [facility] White blood cell (WBC) count Ordered By: Jose J Mcclendon on 06-28-2024 WBC (Bld) [#/Vol] 8.1 10*3/uL 4.4-11.0 [facility] Discharge Instructionon 06-08 Discharge Instruction [facility] Medical Records Department [address] [place] [address] Instructions for Home/Discharge Instructions 06/27/24 0714 MR#: [id number] Acct: [id number] Name: ABELARDO IVORY Rep #: [id number] : 1950 74 From: Jose J Mcclendon MD PCP: Dr. Padmini Carrasco MD [place] [facility] [place] Instructions Diet Discharge Diet: No restrictions DC O2, CPAP, BIPAP needs Home O2 Discharge instructions: No Dressing / Incision Discharge Activity: Return to Normal Activity and May Not Drive (while taking narcotic pain medications.) Dressing / Incision Call your doctor if you observe: Fever of 101 or Higher Follow Up Care Please Follow Up With: Jose J Mcclendon MD When: Call [phone] for an appointment Test Results: Test results from this visit will be discussed in further detail at your follow-up appointment, if applicable. Discharge Plan Admission Primary Reason for Your Visit: Resection of bladder tumor Attending Provider: Jose J Mcclendon Primary Care Provider: Padmini Carrasco Instructions Print Language: Bangladeshi Discharge Orders/Prescriptions Prescriptions: New ibuprofen 600 mg [...] Padmini Carrasco MD [Primary Care Provider] - Jose J Mcclendon MD [Med Staff - Active Staff] - Disposition Disposition (needs filled in before D/C Order can be placed): Home, Self Care 06/27/24 0714 Jose J Mcclendon MD CC: Dr. Padmini Carrasco MD Signed Normal [facility] Immunohistochemical Stainson 06-27-2024 Immunohistochemical Stains Patient Age/Sex Location Account Attending Physician ABELARDO IVORY 74/M MS3 [id number] Dr. Jose J Mcclendon MD Specimen: [id number] Received: 06/27/24 Status: EZEQUIEL Rodriguezashley Num: [id number] Spec Type: BLADDER BX Subm Dr: Dr. Jose J Mcclendon MD HEADER OPERATION: Transurethral resection bladder [...] in intradepartmental consultation by Dr Mao Brennan ([facility] pathology division, [facility]). MICROSCOPIC DESCRIPTION Slides are reviewed. All matched controls reacted appropriately. These tests were developed and their performance characteristics determined by [facility]. They may not have been [...] specimen is submitted in toto in A1-3. [facility] 06-27-2024 CPT:66918,22548,44599 Patient Age/Sex Location Account Attending Physician ABELARDO IVORY 74/M MS3 [id number] Dr. Jose J Mcclendon MD ADDENDUM Addendum 1 Entered: 07/31/24-5157 This addendum is added to incorporate an outside pathology consultation report. The case was examined at [facility] by Dr. Beltran (#[id number]) and the following diagnosis was rendered. A. Urinary bladder, transurethral resection: Invasive urothelial carcinoma, high-grade, involving muscularis propria. Please see complete above mentioned consultation report in EMR Addendum Signed (signature on file) Dr. Muriel Batista MD 07/31/24 1550 Patient Age/Sex Location Account Attending Physician ABELARDO IVORY 74/M MS3 [id number] Dr. Jose J Mcclendon MD Signed (signature on file) Dr. Muriel Batista MD 06/29/24 1547 Normal [facility] Comment on above: Performed By: #### L 506.1001, L509.1000, L503.0106 #### [facility] [address] [place], [address] MR/POSTOP.Layla 06-27-2024 MR/POSTOP.[facility] Medical Records Department [address] [place] [address] Anesthesia Postop Eval I 06/27/24 0934 MR#: [id number] Acct: [id number] Name: ABELARDO IVORY Rep #: [id number] : 1950 74 From: Jose Luis Man CRNA PCP: Dr. Padmini Carrasco MD Status:REG SDC Y Race: C Location: [place] [address] Anesthesia: Postop Eval I Current Vital Signs Temperature: 97.3 F Pulse Rate: 60 Blood Pressure: 186/72 Respiratory Rate: 16 Pulse Ox: 98 Assessment Airway patent: Yes Spontaneous unlabored respirations: Yes nausea: No Vomiting: No Anesthesia Complication: No Fluid Hydration Crystalloid volume administer (ml): 500 Total IV fluid infused: 500 Progress Note Anesthesia document: Postop Eval 1 completed: Yes 06/27/2435 Date Jose Luis Man P[employer] Cosigner Signature: Date CC: Signed Normal [facility] MR/[id number] 06-27-2024 MR/POSTOPAN2 [facility] Medical Records Department [address] [place] [address] Anesthesia Postop Eval II 06/27/24 1136 MR#: [id number] Acct: [id number] Name: ABELARDO IVORY Rep #: [id number] : 1950 74 From: Jose Cisneros MD PCP: Dr. Padmini Carrasco MD Status:REG SDC Y Race: C Location: [place] [address] Anesthesia Postop Eval I Sum Postop Eval Completion status Anesthesia document: Postop Eval 1 completed: Yes Anesthesia Postop Eval I Summary Anesthesia Postop Eval I Summary: Anesthesia Postop Eval I: Assessment Summary Airway patent Yes 06/27/24 09:34 P[employer]S [email or web address].TNES Spontaneous unlabored Yes 06/27/24 09:34 [employer].TNES respirations Mental status nausea No 06/27/24 09:34 [employer].TNES Vomiting No 06/27/24 09:34 [employer].TNES Anesthesia Postop Eval I: Fluid Summary Crystalloid volume administer 500 06/27/24 09:34 PANTS [employer].TNES (ml) Colloids volume administered ( ml) Blood Product volume administered (ml) Total IV fluid infused 500 06/27/24 09:34 [email or web address].TNES Anesthesia Postop Eval I: Summary Notes Anesthesia Complication No 06/27/24 09:34 P[email or web address].TNES Anesthesia Complication Comment: Post-operative progress note Anesthesia: Postop Eval II Evaluation Mental status: Awake Pain Level: 4 nausea: No Vomiting: No 06/27/24 1137 Date Jose Jackson Signature: Date CC: Signed Normal [facility] Operative Reporton Operative Report [facility] Medical Records Department [address] [place] [address] Operative Report 06/27/24 0918 MR#: [id number] Acct: [id number] Name: ABELARDO IVORY Rep #: [id number] : 1950 74 From: Jose J Mcclendon MD PCP: Dr. Padmini Carrasco MD Status:[facility] Location: [place] [address] Operative Report (Standard) Operative Information Date of Procedure: 06/27/24 Pre-Operative Diagnosis: Large bladder mass Post-Operative Diagnosis: The same Surgery/Procedure Performed: Transurethral resection of the large bladder mass appears invasive compo conveyor operator: No Type of Anesthesia: General RN Documented Start/Stop Times: Operation Date: 06/27/24 08:45 Case Time Into Pre-Op 06/27/24 06:33 Out of Pre-Op 06/27/24 08:46 Anesthesia Start 06/27/24 08:47 Into Room 06/27/24 08:47 Procedure Start 06/27/24 08:59 Procedure End 06/27/24 09:18 Procedure Start Time: 08:59 Procedure Stop Time: 09:18 Select all DRAINS/GRAFTS/IMPLANTS that apply: Drains (18 Martiniquais Alaniz catheter) Drain details: alaniz Estimated Blood [...] the meatus with sounds starting at 18 Martiniquais up to 26 Martiniquais I was unable to easily go into the urethra with a 24 Martiniquais noncontinuous flow Olympus bipolar resectoscope with upon [...] applicable): CC: Dr. Padmini Carrasco MD; Dr. Jose J Mcclendon MD Signed [facility] MR/PAT.JAVIon 06-25-2024 MR/PAT.[facility] Medical Records Department [address] [place] [address] PAT - Anesthesia 06/25/24 1014 MR#: [id number] Acct: [id number] Name: ABELARDO IVORY Rep #: [id number] : 1950 74 From: Jose Cisneros MD PCP: Dr. Padmini Carrasco MD Status:PRE [facility] [place] Race: C [place] [facility] Pre-Assessment Diagnosis/Proposed Procedure Planned Operative Procedure(s): Cysto,Transurethal Resec Bladder,Olympus Anesthesia History Anesthesia History - academic computing director: Anesthesia History - academic computing director Hx Hospitalization No 06/13/24 10:26 Any Problems [...] take am of surgery PONV PONV - academic computing director: PONV - academic computing director Female No 06/13/24 10:26 HX of Motion [...] 05/16/24 22:09 Respiratory Assessment Respiratory Assessment - academic computing director: Respiratory Tract Infection Hx - academic computing director Hx Respiratory Tract Infection No 06/13/24 10:26 STOP Sleep Apnea STOP Sleep Apnea - academic computing director: STOP Sleep Apnea - academic computing director Hx Hypertension Yes: CONTROLLED ON MED 06/13/24 [...] Tobacco Use History Tobacco Use History - academic computing director: Tobacco Use History - academic computing director Tobacco Use Smoking Status Current every day smoker 06/13/24 10:26 Hx Tobacco Use Yes 06/13/24 10:26 Years Smoking Packs Smoked per Day Smoking Cessation Date was within the last 15 years Hx Smoking Cessation Date Hx Smoking Cessation Counseling Hematologic Medial History Hematologic Hx - academic computing director: Hematologic Medical Hx - sheet taker Hx of Blood Transfusion No 06/13/24 10:26 [...] confused, unrespo /Reproduction History /Reproductive History - academic computing director: /Reproductive Hx- academic computing director Hx Now Gestational Age (in weeks): EDC: Hx Hx Para Hx Section SAB PFSH Medical History Wears dentures Wears glasses Bruising Easy bruising High cholesterol Smoker Shortness of breath on exertion History of echocardiogram Cardiology follow-up encounter Stage 3b chronic kidney disease (CKD) Thrombocytopenia Chronic kidney insufficiency Pleural effusion Secondary pulmonary arterial hypertension 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 [facility] Urine Cultureon 06-22-2024 URC Culture exhibits no growth. [facility] Comment on above: Performed By: #### L 506.1001, L509.1000, L503.0106 #### [facility] [address] [place], [address] Abdomen/Pelvis WITH Contrast on 06-21-2024 Abdomen/Pelvis WITH Contrast [facility] Imaging Services [address] [place] [address] Abdomen/Pelvis WITH Contrast MR#: [id number] Acct: [id number] Name: ABELARDO IVORY Rep #: [id number] : 1950 M 74 From: Lebron mak MD PCP: Dr. Padmini Carrasco MD Status: REG CLI Study: Abdomen/Pelvis WITH Contrast Date of Exam: Exam# [id number] Ordering Dr: Jose J Mcclendon MD PROCEDURE: ABDOMEN/PELVIS WITH CONTRAST 06/21/2024 [...] Calcified hepatic and splenic granulomas. Reading Location: [id number] CC: Dr. Padmini Carrasco MD; Dr. Jose J Mcclendon MD Slabbing Machine Operator: Signed [facility] CREATININE FINGERSTICKon Creatinine [Mass/Vol] 1.8 mg/dL High 0.70-1.30 [facility] Comment on above: Performed By: #### L 9100.0200 ####[facility] [address] [facility] [place], [place], [id number] GFR/1.73 sq M.predicted among non-blacks MDRD (S/P/Bld) [Vol rate/Area] 39.0000 mL/min/{1.73_m2} Low >60 [facility] Comment on above: Performed By: #### L 9100.0200 ####[facility] [address] [facility] [place], [place], [id number] Creatinine measurement at dsideOrdered By: Jose J Mcclendon on 06-21-2024 Creatinine [Mass/Vol] 1.8 mg/dL High 0.70-1.30 [facility] EGFROrdered By: Jose J Mcclendon on 06-21-2024 GFR/1.73 sq M.predicted among non-blacks MDRD (S/P/Bld) [Vol rate/Area] 39.0000 mL/min/{1.73_m2} Low >60 [facility] Urine cultureOrdered By: Casimiro Mcclendon on 06-21-2024 Bacteria identified Cx Nom (U) Culture exhibits no growth. [facility] 12 Lead EKG performed by [facility] [place] on 06-19-2024 12 Lead EKG performed by [facility] [address] [place] [address] 12 Lead EKG performed by [facility] [place] [place] 06/19/2414 MR#: [id number] Acct: [id number] Name: ABELARDO IVORY Rep #: [id number] : 1950 74 From: Nito ACUNA Attending Dr: KALPANA Awad Status: PRE AM B Ordering Dr: Nito Rosales Date: 06/19/24 Location: [facility] Sex: M C Admitted: [facility] [place] [place]/12 Lead EKG performed by [facility] [place] ECG Report Interpretation ---Sinus Bradycardia WITHIN NORMAL LIMITSElectronically signed on 06/19/2024 at 08:20 by Raheem Farrarwood [employer] Version [id number] 06/19/24 0821 Date Nito ACUNA CC: Dr. Padmini Carrasco MD Date Dictated: 06/19/24613 Date Transcribed: 06/19/24613 Slabbing Machine Operator: FREDDIE Signed [facility] 12 lead electrocardiography reportOrdered By: Nito Rosales on 06-19-2024 EKG study [facility] [address] [place] [address] 12 Lead EKG performed by [facility] [place] 06/19/2414 MR#: [id number] Acct: [id number] Name: ABELARDO IVORY Rep #:[id number] : 1950 74 From: Nito ACUNA Attending Dr: KALPANA Awad St atus: PRE AMB Ordering Dr: Nito Rosales Date: 06/19/24 Location: [facility] [place] Sex: M C Admitted: BMS/12 Lead EKG performed by [facility] [place] ECG Report Interpretation ---Sinus Bradycardia WITHIN NORMAL LIMITSElectronically signed on 06/19/2024 at 08:20 by Raheem Farrarwood [employer] Version [id number] 06/19/24 0821 Date _ Nito ACUNA CC: Dr. Padmini Carrasco MD ~ Date Dictated: 06/19/24613 Date Transcribed: 06/19/24613 Slabbing Machine Operator: FREDDIE [employer] Work Phone: Cardiology Visit Reporton Cardiology Visit Report [facility] [place] [address] OFFICE VISIT Date of Service: 06/19/24 MR#: [id number] Acct: [id number] Name: ABELARDO IVORY Rep #: [id number] : 1950 Provider: KALPANA Awad Age/Sex: 74/M Location: [facility] Status: Signed HPI HPI History of Present [...] the RCA and patient was referred to [facility] for aortic valve and RCA revascularization. Patient underwent AVR plus CABG x 1 (Perimount #23, SVG to RCA at [facility] on 02/12/2019). Patient did well postoperatively with echocardiogram demonstrating preserved ejection fraction, normally functioning prosthetic aortic valve with peak gradient 25 mmHg and mean gradient of 13 mmHg. Patient was diagnosed with an abdominal aortic aneurysm and was sent to [place] for an opinion. It was noted to [...] of aneurysm leak. Patient was transferred to [facility] and on 12/28/2021 patient proceeded with thoracoretroperitoneal [...] Intake Visit Reasons: SURGERY CLEARANCE (DR. MCCLENDON) Transportation Department Head Required: No Is patient in pain?: No [...] surgery scheduled for june 27with Dr. 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 [facility] MR/PAT.ANEon 06-13-2024 MR/PAT.[facility] Medical Records Department [address] [place] [address] PAT - Anesthesia 06/13/24 1208 MR#: [id number] Acct: [id number] Name: ABELARDO IVORY Rep #: [id number] : 1950 74 From: Edgar Khan MD PCP: Dr. Padmini Carrasco MD Status:PRE [facility] [place] Race: C [place] [facility] Pre-Assessment Diagnosis/Proposed Procedure Planned Operative Procedure(s): Cysto,Transurethal Resec Bladder,Olympus Anesthesia History Anesthesia History - academic computing director: Anesthesia History - academic computing director Hx Hospitalization No 06/13/24 10:26 Any Problems [...] take am of surgery PONV PONV - academic computing director: PONV - academic computing director Female No 06/13/24 10:26 HX of Motion [...] 05/16/24 22:09 Respiratory Assessment Respiratory Assessment - academic computing director: Respiratory Tract Infection Hx - academic computing director Hx Respiratory Tract Infection No 06/13/24 10:26 STOP Sleep Apnea STOP Sleep Apnea - academic computing director: STOP Sleep Apnea - academic computing director Hx Hypertension Yes: CONTROLLED ON MED 06/13/24 [...] Tobacco Use History Tobacco Use History - academic computing director: Tobacco Use History - academic computing director Tobacco Use Smoking Status Current every day smoker 06/13/24 10:26 Hx Tobacco Use Yes 06/13/24 10:26 Years Smoking Packs Smoked per Day Smoking Cessation Date was within the last 15 years Hx Smoking Cessation Date Hx Smoking Cessation Counseling Hematologic Medial History Hematologic Hx - academic computing director: Hematologic Medical Hx - sheet taker Hx of Blood Transfusion No 06/13/24 10:26 Hx of Transfusion in last 3 No 06/13/24 10:26 Months Date of Last Transfusion (if within last 3 months) Ever experience any problems No 06/13/24 10:26 with transfusion(s)? Specify any problems Hx of Preganancy in last 3 N/A 06/13/24 10:26 Months Nurse Filling Out Transfusion VCHRISTIN 06/13/24 10:26 Questions: Date: 06/13/24 06/13/24 10:26 Time: 10:06/13/24 10:26 Patient unable to answer at this time (ie. confused, unrespo /Reproduction History /Reproductive History - academic computing director: /Reproductive Hx- academic computing director Hx Now Gestational Age (in weeks): EDC: Hx Hx Para Hx Section SAB [facility] Medical History (Updated 05/25/24 @ 00:01 by Background Jayesh) Wears dentures Wears glasses Bruising Easy bruising High cholesterol Smoker Shortness of breath on exertion History of echocardiogram Cardiology follow-up encounter Stage 3b chronic kidney disease (CKD) Thrombocytopenia Chronic kidney insufficiency Pleural effusion Secondary pulmonary arterial hypertension 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 [facility] Cytology report of Body flui d Cyto stainOrdered By: Jose J Mcclendon on 05-28-2024 Cytology report Cyto stain Doc (Body fld) SEE PATHOLOGY REPORT [facility] Comment on above: Specimen submitted t o Anatomical Pathology Department for testing. Cytology, Body Fluid / CSFon 05-28-2024 CYTOLOGY,BF/CSF SEE PATHOLOGY REPORT [facility] Comment on above: Order Comment: URINE Result Comment: Spec imen submitted to Anatomical Pathology Department for testing. Performed By: #### L 350.1000 ####[facility] [address] [place], [address] Pap Stain (control)on 2024 Pap Stain (control) --- Patient Age/Sex Location Account Attending Physician ABELARDO IVORY 74/M LABSPEC [id number] Dr. Jose J Mcclendon MD Specimen: [id number] Received: 05/28/24 Status: EZEQUIEL Mack Num: [id number] Spec Type: CYSPIN FL Subm Dr: Dr. Jose J Mcclendon MD HEADER OPERATION: Not noted PRE-OP [...] Submitted for cytology preparation. Mr 05/29/2024 CPT: 16740 Signed (signature on file) Dr. Sun Kunz DO 05/29/24 1054 [facility] Comment on above: Performed By: #### L 506.1001, L509.1000, L503.0106 #### [facility] [address] [place], [address] Urine Cultureon 05-18-2024 URC Below infection leve l. COLONY COUNT 200 CFU/ML GNR lactose doctor osteopathic [place] Count <1000 [facility] Comment on above: Performed By: #### M 100.2200 ####[facility] [address] [place], [address] Emergency Department Summary on 05-17-2024 Emergency Department Summary [facility] Medical Records Department [address] [place] [address] Emergency Department Summary 05/17/24 MR#: [id number] Acct: [id number] Name: ABELARDO IVORY Rep #: [id number] : 1950 74 From: Jeffery Turpin DO [...] and therefore he comes in for evaluation. 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 [facility] Abdomen/Pelvis without Conto n 05-16-2024 Abdomen/Pelvis without Cont [facility] Imaging Services [address] [place] [address] Abdomen/Pelvis without Cont MR#: [id number] Acct: [id number] Name: ABELARDO IVORY Rep #: [id number] : 1950 M 74 From: Jaden fox MD PCP: Dr. Padmini Carrasco MD Status: REG ER Study: Abdomen/Pelvis without Cont Date of Exam: 11/01 Exam# [id number] Ordering Dr: Jeffery Turpin DO PROCEDURE: ABDOMEN/PELVIS [...] Dr. Padmini Carrasco MD; Jeffery Turpin DO Slabbing Machine Operator: Signed [facility] Absolute lymphocyte countOrd ered By: Jeffery Turpin on 05-16-2024 Lymphocytes Auto (Unsp spec) [#/Vol] 1.76 10*3/uL 0.83-4.51 [facility] Absolute neutrophil countOrd ered By: Jeffery Turpin on 05-16-2024 Neutrophils (Bld) [#/Vol] 4.7 10*3/uL 2.0-7.7 [facility] Anion gap in Serum or Plasma Ordered By: Jeffery Turpin on 05-16-2024 Anion gap [Moles/Vol] 14 mmol/L 5-15 [facility] Automated lymphocyte count a s percentage of total leukocytesOrdered By: Jeffery Turpin on 05-16-2024 Lymphocytes/100 WBC Auto (Unsp spec) 24.2 % 19-41 [facility] BUN/creatinine ratioOrdered By: Jeffery Turpin on 05-16-2024 Urea nitrogen/Creatinine [Mass ratio] 20.9 mg/mg High 10-20 [facility] Basic Metabolic Profile (BMP )on 05-16-2024 BUN/CRE 20.9 RATIO High 10-20 [facility] Comment on above: Performed By: #### L 506.1001, L509.1000, L503.0106 #### [facility] [address] [place], [address] Calcium [Mass/Vol] 9.1 mg/dL Normal 7.6-11.0 [facility] Comment on above: Performed By: #### L 506.1001, L509.1000, L503.0106 #### [facility] [address] [place], [address] Chloride [Moles/Vol] 102 mmol/L Normal 98-108 [facility] Comment on above: Performed By: #### L 506.1001, L509.1000, L503.0106 #### [facility] [address] [place], [address] CO2 [Moles/Vol] 20.7 mmol/L Low 21.0-32.0 [facility] Comment on above: Performed By: #### L 506.1001, L509.1000, L503.0106 #### [facility] [address] [place], [address] Creatinine [Mass/Vol] 1.47 mg/dL High 0.70-1.20 [facility] Comment on above: Performed By: #### L 506.1001, L509.1000, L503.0106 #### [facility] [address] [place], [address] ECRCL 39.78 ml/min Low 50-250 [facility] Comment on above: Performed By: #### L 506.1001, L509.1000, L503.0106 #### [facility] [address] [place], [address] GAP 14 Normal 5-15 [facility] Comment on above: Performed By: #### L 506.1001, L509.1000, L503.0106 #### [facility] [address] [place], [address] GFR/1.73 sq M.predicted among non-blacks MDRD (S/P/Bld) [Vol rate/Area] 50 mL/min/{1.73_m2} Low >60 [facility] Comment on above: Result Comment: mL/m in/1.73m2 CKD-EPI Creatinine Equation (2020) Performed By: #### L 506.1001, L509.1000, L503.0106 #### [facility] [address] [place], [address] Glucose [Mass/Vol] 145 mg/dL High 70-99 [facility] Comment on above: Performed By: #### L 506.1001, L509.1000, L503.0106 #### [facility] [address] [place], [address] Potassium [Moles/Vol] 4.5 mmol/L Normal 3.3-5.1 [facility] Comment on above: Performed By: #### L 506.1001, L509.1000, L503.0106 #### [facility] [address] [place], [address] Sodium [Moles/Vol] 136 mmol/L Normal 133-145 [facility] Comment on above: Performed By: #### L 506.1001, L509.1000, L503.0106 #### [facility] [address] [place], [address] Urea nitrogen [Mass/Vol] 31 mg/dL High 4-19 [facility] Comment on above: Performed By: #### L 506.1001, L509.1000, L503.0106 #### [facility] [address] [place], [address] Basophil percentageOrdered B y: Jeffery Turpin on 05-16-2024 Basophils/100 WBC (Bld) 0.6 % 0-1 [facility] Bilirubin Test strip Ql (U)O rdered By: Jeffery Turpin on 05-16-2024 Bilirubin Ql (U) Negative Negative [facility] CBC W/Diff, Automatedon 04-0 Absolute Lymph 1.76 X10 3/uL Normal 0.83-4.51 [facility] Comment on above: Performed By: #### L 506.1001, L509.1000, L503.0106 #### [facility] [address] [place], [address] Absolute Neut 4.7 X10 3/uL Normal 2.0-7.7 [facility] Comment on above: Performed By: #### L 506.1001, L509.1000, L503.0106 #### [facility] [address] [place], [address] Basophils/100 WBC (Bld) 0.6 % Normal 0-1 [facility] Comment on above: Performed By: #### L 506.1001, L509.1000, L503.0106 #### [facility] [address] [place], [address] Eosinophils/100 WBC (Bld) 2.2 % Normal 0-5 [facility] Comment on above: Performed By: #### L 506.1001, L509.1000, L503.0106 #### [facility] [address] [place], [address] Erythrocyte distribution width (RBC) [Ratio] 12.8 % Normal 11.6-14.6 [facility] Comment on above: Performed By: #### L 506.1001, L509.1000, L503.0106 #### [facility] [address] [place], [address] Hematocrit (Bld) [Volume fraction] 42.7 % Normal 40-54 [facility] Comment on above: Performed By: #### L 506.1001, L509.1000, L503.0106 #### [facility] [address] [place], [address] Hemoglobin (Bld) [Mass/Vol] 14.1 g/dL Normal 13.0-16.5 [facility] Comment on above: Performed By: #### L 506.1001, L509.1000, L503.0106 #### [facility] [address] [place], [address] IG% 0.300 Normal 0.0-0.9 [facility] Comment on above: Result Comment: IG% - Immature Granulocytes (promyelocytes, myelocytes and metamyelocytes) > 1% indicates that a LEFT SHIFT is Present. Performed By: #### L 506.1001, L509.1000, L503.0106 #### [facility] [address] [place], [address] Lymphocytes/100 WBC (Bld) 24.2 % Normal 19-41 [facility] Comment on above: Performed By: #### L 506.1001, L509.1000, L503.0106 #### [facility] [address] [place], [address] MCH (RBC) [Entitic mass] 30.4 pg Normal 27.0-32.0 [facility] Comment on above: Performed By: #### L 506.1001, L509.1000, L503.0106 #### [facility] [address] [place], [address] MCHC (RBC) [Mass/Vol] 33.0 g/dL Normal 32-36 [facility] Comment on above: Performed By: #### L 506.1001, L509.1000, L503.0106 #### [facility] [address] [place], [address] MCV (RBC) [Entitic vol] 92.0 fL Normal 80-94 [facility] Comment on above: Performed By: #### L 506.1001, L509.1000, L503.0106 #### [facility] [address] [place], [address] Monocytes/100 WBC (Bld) 8.1 % Normal 0-10 [facility] Comment on above: Performed By: #### L 506.1001, L509.1000, L503.0106 #### [facility] [address] [place], [address] Neutrophils/100 WBC (Bld) 64.6 % Normal 47-70 [facility] Comment on above: Performed By: #### L 506.1001, L509.1000, L503.0106 #### [facility] [address] [place], [address] Nucleated RBC (Bld) [#/Vol] 0 10*3/uL Normal 0-5 [facility] Comment on above: Performed By: #### L 506.1001, L509.1000, L503.0106 #### [facility] [address] [place], [address] Platelet mean volume (Bld) [Entitic vol] 8.5 fL Normal 6.2-12.0 [facility] Comment on above: Performed By: #### L 506.1001, L509.1000, L503.0106 #### [facility] [address] [place], [address] Platelets (Bld) [#/Vol] 151 10*3/uL Normal 150-450 [facility] Comment on above: Performed By: #### L 506.1001, L509.1000, L503.0106 #### [facility] [address] [place], [address] RBC (Bld) [#/Vol] 4.64 10*6/uL Normal 4.6-6.2 [facility] Comment on above: Performed By: #### L 506.1001, L509.1000, L503.0106 #### [facility] [address] [place], [address] RDW SD 43.4 fl Normal 35.1-43.9 [facility] Comment on above: Performed By: #### L 506.1001, L509.1000, L503.0106 #### [facility] [address] [place], [address] WBC (Bld) [#/Vol] 7.3 10*3/uL Normal 4.4-11.0 [facility] Comment on above: Performed By: #### L 506.1001, L509.1000, L503.0106 #### [facility] [address] [place], [address] Carbon dioxide, total [Moles /volume] in Central venous bloodOrdered By: Jeffery Turpin on 05-16-2024 CO2 [Moles/Vol] 20.7 mmol/L Low 21.0-32.0 [facility] Chloride assayOrdered By: Kelly Turpin on 05-16-2024 Chloride [Moles/Vol] 102 mmol/L 98-108 [facility] Eosinophil percentageOrdered By: Jeffery Turpin on 05-16-2024 Eosinophils/100 WBC (Bld) 2.2 % 0-5 [facility] Epithelial cells.squamous LM Ql (Urine sed)Ordered By: Jeffery Turpin on 05-16-2024 Epithelial cells.squamous LM.HPF (Urine sed) [#/Area] 0 /[HPF] 0-5 [facility] Erythrocyte distribution wid th (RBC) [Ratio]Ordered By: Jeffery Turpin on 05-16-2024 Erythrocyte distribution width (RBC) [Entitic vol] 43.4 fL 35.1-43.9 [facility] Erythrocyte distribution wid th ratioOrdered By: Jeffery Turpin on 05-16-2024 Erythrocyte distribution width (RBC) [Ratio] 12.8 % 11.6-14.6 [facility] Erythrocyte distribution wid th standard deviationOrdered By: Jeffery Turpin on 05-16-2024 Erythrocyte distribution width (RBC) [Ratio] 43.4 fl 35.1-43.9 [facility] Estimation of creatinine brandan aranceOrdered By: Jeffery Turpin on 05-16-2024 Estimated Creatinine Clearance Calc 39.78 ml/min Low 50-250 [facility] GFR/1.73 sq M.predicted kasie g non-blacks MDRD (S/P/Bld) [Vol rate/Area]Ordered By: Jeffery Turpin on 05-16-2024 Estimated GFR (MDRD) Non-Af Amer 50 Low >60 [facility] Comment on above: mL/min/1.73m2 CKD-EP I Creatinine Equation (2020) Glomerular filtration rate ( GFR) estimation/1.73 sq m using serum, plasma, or whole bOrdered By: Jeffery Turpin on 05-16-2024 GFR/1.73 sq M.predicted among non-blacks MDRD (S/P/Bld) [Vol rate/Area] 50 mL/min/{1.73_m2} Low >60 [facility] Comment on above: mL/min/1.73m2 CKD-EP I Creatinine Equation (2020) Glucose Ql (U)Ordered By: Kelly Turpin on 05-16-2024 Urine Glucose (UA) Normal mg/dl Normal [facility] Hematocrit Auto (Bld) [Volum e fraction]Ordered By: Jeffery Turpin on 05-16-2024 Hematocrit (Bld) [Volume fraction] 42.7 % 40-54 [facility] Hemoglobin measurementOrdere d By: Jeffery Turpin on 05-16-2024 Hemoglobin (Bld) [Mass/Vol] 14.1 g/dL 13.0-16.5 [facility] Immature granulocytes/100 WB C Auto (Bld)Ordered By: Jeffery Turpin on 05-16-2024 Immature granulocytes/100 WBC (Bld) 0.300 % 0.0-0.9 [facility] Comment on above: IG% - Immature Granu locytes (promyelocytes, myelocytes and metamyelocytes) > 1% indicates that a LEFT SHIFT is Present. Ketones Test strip Ql (U)Ord ered By: Jeffery Turpin on 05-16-2024 Ketones Ql (U) Negative Negative [facility] Lymphocytes Auto (Unsp spec) [#/Vol]Ordered By: Jeffery Turpin on 05-16-2024 Lymphocytes (Bld) [#/Vol] 1.76 10*3/uL 0.83-4.51 [facility] Lymphocytes/100 WBC Auto (Un sp spec)Ordered By: Jeffery Turpin on 05-16-2024 Lymphocytes/100 WBC (Bld) 24.2 % 19-41 [facility] MCV (mean corpuscular volume ) determinationOrdered By: Jeffery Turpin on 05-16-2024 MCV (RBC) [Entitic vol] 92.0 fL 80-94 [facility] Mean corpuscular hemoglobin (MCH) determinationOrdered By: Jeffery Turpin on 05-16-2024 MCH (RBC) [Entitic mass] 30.4 pg 27.0-32.0 [facility] Mean corpuscular hemoglobin concentration (MCHC) determinationOrdered By: Jeffery Turpin on 05-16-2024 MCHC (RBC) [Mass/Vol] 33.0 g/dL 32-36 [facility] Mean platelet volume determi nationOrdered By: Jeffery Turpin on 05-16-2024 Platelet mean volume (Bld) [Entitic vol] 8.5 fL 6.2-12.0 [facility] Microscopic analysis of urin e for red blood cells (RBC)Ordered By: Jeffery Turpin on 05-16-2024 Microscopic analysis of urine for red blood cells (RBC) > 100 SEEN /hpf 0- [facility] Comment on above: Microscopic field is filled. Other elements may be obscured. Urine RBC > 100 SEEN /hpf 0- [facility] Comment on above: Microscopic field is filled. Other elements may be obscured. Monocyte percentageOrdered B y: Jeffery Turpin on 05-16-2024 Monocytes/100 WBC (Bld) 8.1 % 0-10 [facility] Mucus LM Ql (Urine sed)Order ed By: Jeffery Turpin on 05-16-2024 Mucus Ql (Urine sed) 0 SEEN /hpf [facility] Neutrophil percentageOrdered By: Jeffery Turpin on 05-16-2024 Neutrophils/100 WBC (Bld) 64.6 % 47-70 [facility] Nitrite Test strip Ql (U)Ord ered By: Jeffery Turpin on 05-16-2024 Nitrite Ql (U) Positive High Negative [facility] Nucleated red blood cell per centageOrdered By: Jeffery Turpin on 05-16-2024 Nucleated RBC/100 WBC (Bld) [Ratio] 0 % 0-5 [facility] Platelet countOrdered By: Kelly Turpin on 05-16-2024 Platelets (Bld) [#/Vol] 151 10*3/uL 150-450 [facility] Potassium (Unsp spec) [Mass/ Vol]Ordered By: Jeffery Turpin on 05-16-2024 Potassium [Moles/Vol] 4.5 mmol/L 3.3-5.1 [facility] Potassium measurement (mass/ volume)Ordered By: Jeffery Turpin on 05-16-2024 Potassium (Unsp spec) [Mass/Vol] 4.5 mmol/L 3.3-5.1 [facility] Protein Test strip Ql (U)Ord ered By: Jeffery Turpin on 05-16-2024 Protein Ql (U) 100 mg/dl High Negative [facility] RBC Auto (Bld) [#/Vol]Ordere d By: Jeffery Turpin on 05-16-2024 RBC (Bld) [#/Vol] 4.64 10*6/uL 4.6-6.2 [facility] RBC casts LM Ql (Urine sed)O rdered By: Jeffery Turpin on 05-16-2024 Urine Red Blood Cell Casts 0-5 SEEN /lpf None Seen [facility] Serum creatinine measurement (mass/volume)Ordered By: Jeffery Turpin on 05-16-2024 Creatinine [Mass/Vol] 1.47 mg/dL High 0.70-1.20 [facility] Serum glucose measurement (m ass/volume)Ordered By: Jeffery Turpin on 05-16-2024 Glucose [Mass/Vol] 145 mg/dL High 70-99 [facility] Serum or plasma calcium jamel urement (mass/volume)Ordered By: Jeffery Turpin on 05-16-2024 Calcium [Mass/Vol] 9.1 mg/dL 7.6-11.0 [facility] Serum or plasma urea nitroge n measurement (mass/volume)Ordered By: Jeffery Turpin on 05-16-2024 Urea nitrogen [Mass/Vol] 31 mg/dL High 4-19 [facility] Sodium levelOrdered By: Domo Turpin on 05-16-2024 Sodium [Moles/Vol] 136 mmol/L 133-145 [facility] Squamous epithelial cells de tection in urine sediment by light microscopyOrdered By: Jeffery Turpin on 05-16-2024 Epithelial cells.squamous LM Ql (Urine sed) 0-5 SEEN /hpf 0-5 [facility] Urinalysis, Completeon 05-16 BACTERIA 1+ /hpf Normal None Seen [facility] Comment on above: Order Comment: COLOR OF URINE MAY AFFECT DIPSTICK RESULTS.CLEAN CATCH Performed By: #### L 400.0001 ####[facility] [address] [facility] [address] CAST,RBC 0-5 SEEN Normal None Seen [facility] Comment on above: Order Comment: COLOR OF URINE MAY AFFECT DIPSTICK RESULTS.CLEAN CATCH Performed By: #### L 400.0001 ####[facility] [address] [place] [id number] EPI,SQUAMOUS 0-5 SEEN Normal 0-5 [facility] Comment on above: Order Comment: COLOR OF URINE MAY AFFECT DIPSTICK RESULTS.CLEAN CATCH Performed By: #### L 400.0001 ####[facility] [address] [place] [address] RBC > 100 SEEN Normal 0-5 [facility] Comment on above: Order Comment: COLOR OF URINE MAY AFFECT DIPSTICK RESULTS.CLEAN CATCH Result Comment: Micr oscopic field is filled. Other elements may be obscured. Performed By: #### L 400.0001 ####[facility] [address] [place] [id number] WBC 10-25 SEEN Normal 0-5 [facility] Comment on above: Order Comment: COLOR OF URINE MAY AFFECT DIPSTICK RESULTS.CLEAN CATCH Performed By: #### L 400.0001 ####[facility] [address] [place] [address] BILIRUBIN URINE Negative Normal Negative [facility] Comment on above: Order Comment: COLOR OF URINE MAY AFFECT DIPSTICK RESULTS.CLEAN CATCH Performed By: #### L 400.0001 ####[facility] [address] [place] [address] Clarity (U) Cloudy Normal Clear [facility] Comment on above: Order Comment: COLOR OF URINE MAY AFFECT DIPSTICK RESULTS.CLEAN CATCH Performed By: #### L 400.0001 ####[facility] [address] [place], [address] Color (U) Red Normal Yellow [facility] Comment on above: Order Comment: COLOR OF URINE MAY AFFECT DIPSTICK RESULTS.CLEAN CATCH Performed By: #### L 400.0001 ####[facility] [address] [place], [address] GLUCOSE, UR Normal Normal Normal [facility] Comment on above: Order Comment: COLOR OF URINE MAY AFFECT DIPSTICK RESULTS.CLEAN CATCH Performed By: #### L 400.0001 ####[facility] [address] [place], [address] KETONE UR Negative Normal Negative [facility] Comment on above: Order Comment: COLOR OF URINE MAY AFFECT DIPSTICK RESULTS.CLEAN CATCH Performed By: #### L 400.0001 ####[facility] [address] [place], [address] LEUK ESTERASE 25 /ul Abnormal Negative [facility] Comment on above: Order Comment: COLOR OF URINE MAY AFFECT DIPSTICK RESULTS.CLEAN CATCH Performed By: #### L 400.0001 ####[facility] [address] [place], [address] Nitrite Ql (U) Positive Abnormal Negative [facility] Comment on above: Order Comment: COLOR OF URINE MAY AFFECT DIPSTICK RESULTS.CLEAN CATCH Performed By: #### L 400.0001 ####[facility] [address] [place], [address] OCCULT BLOOD-UR 250 /ul Abnormal Negative [facility] Comment on above: Order Comment: COLOR OF URINE MAY AFFECT DIPSTICK RESULTS.CLEAN CATCH Performed By: #### L 400.0001 ####[facility] [address] [place], [address] pH UR 6.0 Normal 5.0 - 8.0 [facility] Comment on above: Order Comment: COLOR OF URINE MAY AFFECT DIPSTICK RESULTS.CLEAN CATCH Performed By: #### L 400.0001 ####[facility] [address] [place], [address] PROT DIPSTX 100 mg/dl Abnormal Negative [facility] Comment on above: Order Comment: COLOR OF URINE MAY AFFECT DIPSTICK RESULTS.CLEAN CATCH Performed By: #### L 400.0001 ####[facility] [address] [place], [address] SP.GR. DIPSTX 1.020 Normal 1.002-1.030 [facility] Comment on above: Order Comment: COLOR OF URINE MAY AFFECT DIPSTICK RESULTS.CLEAN CATCH Performed By: #### L 400.0001 ####[facility] [address] [place], [address] UROBILI Normal Normal Normal [facility] Comment on above: Order Comment: COLOR OF URINE MAY AFFECT DIPSTICK RESULTS.CLEAN CATCH Performed By: #### L 400.0001 ####[facility] [address] [place], [address] Mucus Ql (Urine sed) 0 SEEN Normal [facility] Comment on above: Order Comment: COLOR OF URINE MAY AFFECT DIPSTICK RESULTS.CLEAN CATCH Performed By: #### L 400.0001 ####[facility] [address] [place], [address] Urine blood detectionOrdered By: Jeffery Turpin on 05-16-2024 Urine Occult Blood 250 /ul High Negative [facility] Urine clarityOrdered By: Kevin Turpin on 05-16-2024 Clarity (U) Cloudy Clear [facility] Urine color determinationOrd ered By: Jeffery Turpin on 05-16-2024 Color (U) Red Yellow [facility] Urine cultureOrdered By: Kevin Turpin on 05-16-2024 Bacteria identified Cx Nom (U) GNR lactose doctor osteopathic Abnormal [facility] Urine glucose detectionOrder ed By: Jeffery Turpin on 05-16-2024 Glucose Ql (U) Normal mg/dl Normal [facility] Urine leukocyte esterase det ection by dipstickOrdered By: Jeffery Turpin on 05-16-2024 Leukocyte esterase Test strip Ql (U) 25 /ul High Negative [facility] Urine pHOrdered By: Jeffery de la torre on 05-16-2024 pH (U) 6.0 [pH] 5.0 - 8.0 [facility] Urine sediment bacteria coun t by microscopy (number/high power field)Ordered By: Jeffery Turpin on 05-16-2024 Bacteria LM.HPF (Urine sed) [#/Area] 1 /[HPF] None Seen [facility] Urine sediment erythrocyte c ast detection by light microscopyOrdered By: Jeffery Turpin on 05-16-2024 RBC casts LM Ql (Urine sed) 0-5 SEEN /lpf None Seen [facility] Urine specific gravity measu rementOrdered By: Jeffery Turpin on 05-16-2024 Specific gravity (U) [Rel density] 1.020 1.002-1.030 [facility] Urine urobilinogen measureme ntOrdered By: Jeffery Turpin on 05-16-2024 Urobilinogen Ql (U) Normal mg/dl Normal [facility] Urobilinogen Ql (U)Ordered B y: Jeffery Turpin on 05-16-2024 Urine Urobilinogen Normal mg/dl Normal [facility] White blood cell (WBC) count Ordered By: Jeffery Turpin on 05-16-2024 WBC (Bld) [#/Vol] 7.3 10*3/uL 4.4-11.0 [facility] White blood cell countOrdere d By: Jeffery Turpin on 05-16-2024 Urine WBC 10-25 SEEN /hpf 0-5 [facility] White blood cell count 10-25 SEEN /hpf 0-5 [facility] Anion gap in Serum or Plasma Ordered By: Padmini Carrasco on 05-10-2024 Anion gap [Moles/Vol] 12 mmol/L 5-15 [facility] BUN/creatinine ratioOrdered By: Padmini Carrasco on 05-10-2024 Urea nitrogen/Creatinine [Mass ratio] 16.8 mg/mg 10-20 [facility] Basic Metabolic Profile (BMP )on 05-10-2024 BUN Normal 4-19 [facility] Comment on above: Order Comment: Order Date: 06/16/23Order Info: 06- - BMP Result Comment: ADDE D TO 05/10/24 LAB DRAW Performed By: #### L 506.1001, L509.1000, L503.0106 #### [facility] [address] [place], [address] BUN/CRE Normal 10-20 [facility] Comment on above: Order Comment: Order Date: 06/16/23Order Info: [id number] - BMP Result Comment: ADDE D TO 05/10/24 LAB DRAW Performed By: #### L 506.1001, L509.1000, L503.0106 #### [facility] [address] [place], [address] Calcium Normal 7.6-11.0 [facility] Comment on above: Order Comment: Order Date: 06/16/23Order Info: 666-02 - BMP Result Comment: ADDE D TO 05/10/24 LAB DRAW Performed By: #### L 506.1001, L509.1000, L503.0106 #### [facility] [address] [place], [address] CL Normal 98-108 [facility] Comment on above: Order Comment: Order Date: 06/16/23Order Info: 06 - BMP Result Comment: ADDE D TO 05/10/24 LAB DRAW Performed By: #### L 506.1001, L509.1000, L503.0106 #### [facility] [address] [place], [address] CO2 Normal 21.0-32.0 [facility] Comment on above: Order Comment: Order Date: 06/16/23Order Info: 06 - BMP Result Comment: ADDE D TO 05/10/24 LAB DRAW Performed By: #### L 506.1001, L509.1000, L503.0106 #### [facility] [address] [place], [address] CREAT,SERUM Normal 0.70-1.20 [facility] Comment on above: Order Comment: Order Date: 06/16/23Order Info: [id number] - BMP Result Comment: ADDE D TO 05/10/24 LAB DRAW Performed By: #### L 506.1001, L509.1000, L503.0106 #### [facility] [address] [place], [address] eGFR Normal >60 [facility] Comment on above: Order Comment: Order Date: 06/16/23Order Info: 666-02 - BMP Result Comment: ADDE D TO 05/10/24 LAB DRAW Performed By: #### L 506.1001, L509.1000, L503.0106 #### [facility] [address] [place], [address] GAP Normal 5-15 [facility] Comment on above: Order Comment: Order Date: 06/16/23Order Info: [id number] - BMP Result Comment: ADDE D TO 05/10/24 LAB DRAW Performed By: #### L 506.1001, L509.1000, L503.0106 #### [facility] [address] [place], [address] GLU Normal 70-99 [facility] Comment on above: Order Comment: Order Date: 06/16/23Order Info: 06 - BMP Result Comment: ADDE D TO 05/10/24 LAB DRAW Performed By: #### L 506.1001, L509.1000, L503.0106 #### [facility] [address] [place], [address] Potassium Normal 3.3-5.1 [facility] Comment on above: Order Comment: Order Date: 06/16/23Order Info: 06 - BMP Result Comment: ADDE D TO 05/10/24 LAB DRAW Performed By: #### L 506.1001, L509.1000, L503.0106 #### [facility] [address] [place], [address] Basic Metabolic Profile (BMP) Normal 133-145 [facility] Comment on above: Order Comment: Order Date: 06/16/23Order Info: [id number] - BMP Result Comment: ADDE D TO 05/10/24 LAB DRAW Performed By: #### L 506.1001, L509.1000, L503.0106 #### [facility] [address] [place], [address] Bilirubin, totalOrdered By: Padmini Carrasco on 05-10-2024 Bilirubin [Mass/Vol] 0.18 mg/dL 0.00-1.30 [facility] CBC-Complete Blood Cnt No Di ffon 05-10-2024 Erythrocyte distribution width (RBC) [Ratio] 13.2 % Normal 11.6-14.6 [facility] Comment on above: Order Comment: Order Date: 10/12/23Order Info: [id number] - CBC Performed By: #### L 506.1001, L509.1000, L503.0106 #### [facility] [address] [place], [address] Hematocrit (Bld) [Volume fraction] 42.5 % Normal 40-54 [facility] Comment on above: Order Comment: Order Date: 10/12/23Order Info: [id number] - CBC Performed By: #### L 506.1001, L509.1000, L503.0106 #### [facility] [address] [place], [address] Hemoglobin (Bld) [Mass/Vol] 13.6 g/dL Normal 13.0-16.5 [facility] Comment on above: Order Comment: Order Date: 10/12/23Order Info: [id number] - CBC Performed By: #### L 506.1001, L509.1000, L503.0106 #### [facility] [address] [place], [address] MCH (RBC) [Entitic mass] 30.0 pg Normal 27.0-32.0 [facility] Comment on above: Order Comment: Order Date: 10/12/23Order Info: [id number] - CBC Performed By: #### L 506.1001, L509.1000, L503.0106 #### [facility] [address] [place], [address] MCHC (RBC) [Mass/Vol] 32.0 g/dL Normal 32-36 [facility] Comment on above: Order Comment: Order Date: 10/12/23Order Info: [id number] - CBC Performed By: #### L 506.1001, L509.1000, L503.0106 #### [facility] [address] [place], [address] MCV (RBC) [Entitic vol] 93.8 fL Normal 80-94 [facility] Comment on above: Order Comment: Order Date: 10/12/23Order Info: [id number] - CBC Performed By: #### L 506.1001, L509.1000, L503.0106 #### [facility] [address] [place], [address] Platelet mean volume (Bld) [Entitic vol] 9.2 fL Normal 6.2-12.0 [facility] Comment on above: Order Comment: Order Date: 10/12/23Order Info: [id number] - CBC Performed By: #### L 506.1001, L509.1000, L503.0106 #### [facility] [address] [place], [address] Platelets (Bld) [#/Vol] 168 10*3/uL Normal 150-450 [facility] Comment on above: Order Comment: Order Date: 10/12/23Order Info: [id number] - CBC Performed By: #### L 506.1001, L509.1000, L503.0106 #### [facility] [address] [place], [address] RBC (Bld) [#/Vol] 4.53 10*6/uL Low 4.6-6.2 [facility] Comment on above: Order Comment: Order Date: 10/12/23Order Info: [id number] - CBC Performed By: #### L 506.1001, L509.1000, L503.0106 #### [facility] [address] [place], [address] RDW SD 45.1 fl High 35.1-43.9 [facility] Comment on above: Order Comment: Order Date: 10/12/23Order Info: [id number] - CBC Performed By: #### L 506.1001, L509.1000, L503.0106 #### [facility] [address] [place], [address] WBC (Bld) [#/Vol] 6.9 10*3/uL Normal 4.4-11.0 [facility] Comment on above: Order Comment: Order Date: 10/12/23Order Info: [id number] - CBC Performed By: #### L 506.1001, L509.1000, L503.0106 #### [facility] [address] [place], [address] HCT Normal 40-54 [facility] Comment on above: Order Comment: Order Date: 10/12/23 Order Info: [id number] - CMP Order Info: [id number] - LIPID Order Info: [id number] - TSH Order Info: [id number] - PSA Order Info: [id number]- - Result Comment: ADDE D TO 05/10/24 LAB DRAW Performed By: #### L 506.1001, L509.1000, L503.0106 #### [facility] [address] [place], [address] HGB Normal 13.0-16.5 [facility] Comment on above: Order Comment: Order Date: 10/12/23 Order Info: [id number] - CMP Order Info: [id number] - LIPID Order Info: [id number] - TSH Order Info: [id number] - PSA Order Info: [id number] Result Comment: ADDE D TO 05/10/24 LAB DRAW Performed By: #### L 506.1001, L509.1000, L503.0106 #### [facility] [address] [place], [address] MCH Normal 27.0-32.0 [facility] Comment on above: Order Comment: Order Date: 10/12/23 Order Info: 86-1 - CMP Order Info: [id number] - LIPID Order Info: [id number] - TSH Order Info: [id number] - PSA Order Info: [id number] Result Comment: ADDE D TO 05/10/24 LAB DRAW Performed By: #### L 506.1001, L509.1000, L503.0106 #### [facility] [address] [place], [address] MCHC Normal 32-36 [facility] Comment on above: Order Comment: Order Date: 10/12/23 Order Info: [id number] - CMP Order Info: - LIPID Order Info: [id number] - TSH Order Info: [id number] - PSA Order Info: [id number] Result Comment: ADDE D TO 05/10/24 LAB DRAW Performed By: #### L 506.1001, L509.1000, L503.0106 #### [facility] [address] [place], [address] MCV Normal 80-94 [facility] Comment on above: Order Comment: Order Date: 10/12/23 Order Info: [id number] - CMP Order Info: [id number] - LIPID Order Info: [id number] - TSH Order Info: [id number] - PSA Order Info: [id number] Result Comment: ADDE D TO 05/10/24 LAB DRAW Performed By: #### L 506.1001, L509.1000, L503.0106 #### [facility] [address] [place], [address] PLT Normal 150-450 [facility] Comment on above: Order Comment: Order Date: 10/12/23 Order Info: 86-1 - CMP Order Info: [id number] - LIPID Order Info: [id number] - TSH Order Info: 285-1 - PSA Order Info: [id number] Result Comment: ADDE D TO 05/10/24 LAB DRAW Performed By: #### L 506.1001, L509.1000, L503.0106 #### [facility] [address] [place], [address] RBC Normal 4.6-6.2 [facility] Comment on above: Order Comment: Order Date: 10/12/23 Order Info: 86-1 - CMP Order Info: [id number] - LIPID Order Info: 3 - TSH Order Info: 1 - PSA Order Info: [id number] Result Comment: ADDE D TO 05/10/24 LAB DRAW Performed By: #### L 506.1001, L509.1000, L503.0106 #### [facility] [address] [place], [address] RDW CV Normal 11.6-14.6 [facility] Comment on above: Order Comment: Order Date: 10/12/23 Order Info: [id number] - CMP Order Info: [id number] - LIPID Order Info: 3 - TSH Order Info: 1 - PSA Order Info: [id number] Result Comment: ADDE D TO 05/10/24 LAB DRAW Performed By: #### L 506.1001, L509.1000, L503.0106 #### [facility] [address] [place], [address] RDW SD Normal 35.1-43.9 [facility] Comment on above: Order Comment: Order Date: 10/12/23 Order Info: [id number] - CMP Order Info: [id number] - LIPID Order Info: 3 - TSH Order Info: [id number] - PSA Order Info: [id number] Result Comment: ADDE D TO 05/10/24 LAB DRAW Performed By: #### L 506.1001, L509.1000, L503.0106 #### [facility] [address] [place], [address] WBC Normal 4.4-11.0 [facility] Comment on above: Order Comment: Order Date: 10/12/23 Order Info: [id number] - CMP Order Info: - LIPID Order Info: [id number] - TSH Order Info: [id number] - PSA Order Info: [id number] Result Comment: ADDE D TO 05/10/24 LAB DRAW Performed By: #### L 506.1001, L509.1000, L503.0106 #### [facility] [address] [place], [place], [address] Calculated very low density lipoprotein (VLDL) cholesterol measurementOrdered By: Padmini Carrasco on 05-10-2024 Calculated very low density lipoprotein (VLDL) cholesterol measurement 31 mg/dL 5-40 [facility] VLDL Cholesterol 31 mg/dL 5-40 [facility] Carbon dioxide, total [Moles /volume] in Central venous bloodOrdered By: Padmini Carrasco on 05-10-2024 CO2 [Moles/Vol] 22.7 mmol/L 21.0-32.0 [facility] Chloride assayOrdered By: Rambo Carrasco on 05-10-2024 Chloride [Moles/Vol] 104 mmol/L 98-108 [facility] Comprehensive Metabolic Prof ilon 05-10-2024 Albumin [Mass/Vol] 3.9 g/dL Normal 3.4-4.8 [facility] Comment on above: Order Comment: Order Date: 10/12/23 Order Info: [id number] - CMP Order Info: - LIPID Order Info: [id number] - TSH Order Info: [id number] - PSA Order Info: [id number] Performed By: #### L 506.1001, L509.1000, L503.0106 #### [facility] [address] [place], [place], [address] Albumin/Globulin [Mass ratio] 1.4 {ratio} Normal 0.9-2.4 [facility] Comment on above: Order Comment: Order Date: 10/12/23 Order Info: 86-1 - CMP Order Info: [id number] - LIPID Order Info: 3 - TSH Order Info: [id number] - PSA Order Info: 4 - FE Performed By: #### L 506.1001, L509.1000, L503.0106 #### [facility] [address] [place], [address] ALK PHOS 73 U/L Normal 40-129 [facility] Comment on above: Order Comment: Order Date: 10/12/23 Order Info: [id number] - CMP Order Info: - LIPID Order Info: [id number] - TSH Order Info: [id number] - PSA Order Info: [id number] - FE Performed By: #### L 506.1001, L509.1000, L503.0106 #### [facility] [address] [place], [place], [address] ALT [Catalytic activity/Vol] 6 U/L Normal <=46 [facility] Comment on above: Order Comment: Order Date: 10/12/23 Order Info: [id number]- - CMP Order Info: - LIPID Order Info: [id number] - TSH Order Info: [id number] - PSA Order Info: [id number] - FE Performed By: #### L 506.1001, L509.1000, L503.0106 #### [facility] [address] [place], [place], [address] AST [Catalytic activity/Vol] 16 U/L Normal <=37 [facility] [facility] Comment on above: Order Comment: Order Date: 10/12/23 Order Info: 86-1 - CMP Order Info: [id number] - LIPID Order Info: 3015-04 - TSH Order Info: 2856-02 - PSA Order Info: 24909-10 - FE Performed By: #### L 506.1001, L509.1000, L503.0106 #### [facility] [address] [place], [address] Bilirubin [Mass/Vol] 0.18 mg/dL Normal 0.00-1.30 [facility] Comment on above: Order Comment: Order Date: 10/12/23 Order Info: 0786-1 - CMP Order Info: 40073-4 - LIPID Order Info: 3015-3 - TSH Order Info: 2857-1 - PSA Order Info: 2498-4 - FE Performed By: #### L 506.1001, L509.1000, L503.0106 #### [facility] [address] [place], [address] BUN/CRE 16.8 RATIO Normal 10-20 [facility] Comment on above: Order Comment: Order Date: 10/12/23 Order Info: 785-1 - CMP Order Info: 96467-1 - LIPID Order Info: 3 - TSH Order Info: 2851 - PSA Order Info: 2498-4 - FE Performed By: #### L 506.1001, L509.1000, L503.0106 #### [facility] [address] [place], [address] Calcium [Mass/Vol] 9.0 mg/dL Normal 7.6-11.0 [facility] Comment on above: Order Comment: Order Date: 10/12/23 Order Info: 0786-1 - CMP Order Info: 27925-7 - LIPID Order Info: 3013 - TSH Order Info: 2857-1 - PSA Order Info: 2498-4 - FE Performed By: #### L 506.1001, L509.1000, L503.0106 #### [facility] [address] [place], [address] Chloride [Moles/Vol] 104 mmol/L Normal 98-108 [facility] Comment on above: Order Comment: Order Date: 10/12/23 Order Info: 0786-1 - CMP Order Info: - LIPID Order Info: 3015-04 - TSH Order Info: 2856-02 - PSA Order Info: 2498-4 - FE Performed By: #### L 506.1001, L509.1000, L503.0106 #### [facility] [address] [place], [address] CO2 [Moles/Vol] 22.7 mmol/L Normal 21.0-32.0 [facility] Comment on above: Order Comment: Order Date: 10/12/23 Order Info: 86-1 - CMP Order Info: - LIPID Order Info: 3 - TSH Order Info: 2856-02 - PSA Order Info: [id number] - FE Performed By: #### L 506.1001, L509.1000, L503.0106 #### [facility] [address] [place], [address] Creatinine [Mass/Vol] 1.64 mg/dL High 0.70-1.20 [facility] Comment on above: Order Comment: Order Date: 10/12/23 Order Info: 785- - CMP Order Info: - LIPID Order Info: 3015-04 - TSH Order Info: 2856-02 - PSA Order Info: 2498-4 - FE Performed By: #### L 506.1001, L509.1000, L503.0106 #### [facility] [address] [place], [address] GAP 12 Normal 5-15 [facility] Comment on above: Order Comment: Order Date: 10/12/23 Order Info: 785- - CMP Order Info: - LIPID Order Info: 3 - TSH Order Info: [id number] - PSA Order Info: 2498-4 - FE Performed By: #### L 506.1001, L509.1000, L503.0106 #### [facility] [address] [place], [address] GFR/1.73 sq M.predicted among non-blacks MDRD (S/P/Bld) [Vol rate/Area] 44 mL/min/{1.73_m2} Low >60 [facility] Comment on above: Order Comment: Order Date: 10/12/23 Order Info: 0786-1 - CMP Order Info: 85485-2 - LIPID Order Info: 6-3 - TSH Order Info: 285-1 - PSA Order Info: 24909-10 - FE Result Comment: mL/m in/1.73m2 CKD-EPI Creatinine Equation (2020) Performed By: #### L 506.1001, L509.1000, L503.0106 #### [facility] [address] [place], [address] Globulin (S) [Mass/Vol] 2.8 g/dL Normal 2.2-4.2 [facility] Comment on above: Order Comment: Order Date: 10/12/23 Order Info: 785-02 - CMP Order Info: 06684-0 - LIPID Order Info: 3 - TSH Order Info: 2856-02 - PSA Order Info: 2494 - FE Performed By: #### L 506.1001, L509.1000, L503.0106 #### [facility] [address] [place], [address] Glucose [Mass/Vol] 163 mg/dL High 70-99 [facility] Comment on above: Order Comment: Order Date: 10/12/23 Order Info: 0786 - CMP Order Info: 24683-9 - LIPID Order Info: 3 - TSH Order Info: 2851 - PSA Order Info: 2494 - FE Performed By: #### L 506.1001, L509.1000, L503.0106 #### [facility] [address] [place], [address] Potassium [Moles/Vol] 4.8 mmol/L Normal 3.3-5.1 [facility] Comment on above: Order Comment: Order Date: 10/12/23 Order Info: 07-1 - CMP Order Info: - LIPID Order Info: 3015-04 - TSH Order Info: 2856-02 - PSA Order Info: 2497-05 - FE Performed By: #### L 506.1001, L509.1000, L503.0106 #### [facility] [address] [place], [address] Sodium [Moles/Vol] 138 mmol/L Normal 133-145 [facility] Comment on above: Order Comment: Order Date: 10/12/23 Order Info: 785- - CMP Order Info: - LIPID Order Info: 3015-04 - TSH Order Info: 2856-02 - PSA Order Info: 2497-05 - FE Performed By: #### L 506.1001, L509.1000, L503.0106 #### [facility] [address] [place], [address] T PROT 6.7 g/dL Normal 5.9-8.4 [facility] Comment on above: Order Comment: Order Date: 10/12/23 Order Info: 785-02 - CMP Order Info: - LIPID Order Info: 3015-04 - TSH Order Info: 2856-02 - PSA Order Info: 24909-10 - FE Performed By: #### L 506.1001, L509.1000, L503.0106 #### [facility] [address] [place], [address] Urea nitrogen [Mass/Vol] 28 mg/dL High 4-19 [facility] Comment on above: Order Comment: Order Date: 10/12/23 Order Info: 785-02 - CMP Order Info: - LIPID Order Info: 3015-04 - TSH Order Info: 2856-02 - PSA Order Info: 24909-10 - FE Performed By: #### L 506.1001, L509.1000, L503.0106 #### [facility] [address] [place], [address] Erythrocyte distribution wid th (RBC) [Ratio]Ordered By: Padmini Carrasco on 05-10-2024 Erythrocyte distribution width (RBC) [Entitic vol] 45.1 fL High 35.1-43.9 [facility] Erythrocyte distribution wid th ratioOrdered By: Padmini Carrasco on 05-10-2024 Erythrocyte distribution width (RBC) [Ratio] 13.2 % 11.6-14.6 [facility] Erythrocyte distribution wid th standard deviationOrdered By: Padmini Carrasco on 05-10-2024 Erythrocyte distribution width (RBC) [Ratio] 45.1 fl High 35.1-43.9 [facility] GFR/1.73 sq M.predicted kasie g non-blacks MDRD (S/P/Bld) [Vol rate/Area]Ordered By: Padmini Carrasco on 05-10-2024 Estimated GFR (MDRD) Non-Af Amer 44 Low >60 [facility] Comment on above: mL/min/1.73m2 CKD-EP I Creatinine Equation (2020) Glomerular filtration rate ( GFR) estimation/1.73 sq m using serum, plasma, or whole bOrdered By: Padmini Carrasco on 05-10-2024 GFR/1.73 sq M.predicted among non-blacks MDRD (S/P/Bld) [Vol rate/Area] 44 mL/min/{1.73_m2} Low >60 [facility] Comment on above: mL/min/1.73m2 CKD-EP I Creatinine Equation (2020) Hematocrit Auto (Bld) [Volum e fraction]Ordered By: Padmini Carrasco on 05-10-2024 Hematocrit (Bld) [Volume fraction] 42.5 % 40-54 [facility] Hemoglobin measurementOrdere d By: Padmini Carrasco on 05-10-2024 Hemoglobin (Bld) [Mass/Vol] 13.6 g/dL 13.0-16.5 [facility] Ironon 05-10-2024 Iron [Mass/Vol] 57 ug/dL Low 65-175 [facility] Comment on above: Order Comment: Order Date: 10/12/23Order Info: 0786-1 - CMPOrder Info: 77574-0 - LIPIDOrder Info: 3016-3 - TSHOrder Info: 2857-1 - PSAOrder Info: 2497-05 - FE Performed By: #### L 506.1001, L509.1000, L503.0106 #### [facility] [address] [place], [address] Iron (Unsp spec) [Mass/Mass] Ordered By: Padmini Carrasco on 05-10-2024 Iron [Mass/Vol] 57 ug/dL Low 65-175 [facility] Iron measurement (mass/mass) Ordered By: Padmini Carrasco on 05-10-2024 Iron (Unsp spec) [Mass/Mass] 57 ug/dL Low 65-175 [facility] LDL calc ser/plasOrdered By: Padmini Carrasco on 05-10-2024 Cholesterol in LDL [Mass/Vol] 63 mg/dL [facility] Comment on above: Mlbguwiumz=966-659 m g/dL & Higher Ciaw=510 mg/dL or greater LDL Cholesterol, Calculated 63 mg/dL [facility] Comment on above: Sxscqoqxkr=287-134 m g/dL & Higher Zlri=297 mg/dL or greater Laboratory - Chemistry and C hemistry - challengeOrdered By: Padmini Carrasco on 05-10-2024 AST [Catalytic activity/Vol] 16 U/L <38 [facility] Lipid Profileon 05-10-2024 CHOL:HDL 2.86 Normal [facility] Comment on above: Order Comment: Order Date: 10/12/23 Order Info: 0786-1 - CMP Order Info: 36491-9 - LIPID Order Info: 3015-3 - TSH Order Info: 28508-07 - PSA Order Info: 2497-05 - FE Performed By: #### L 506.1001, L509.1000, L503.0106 #### [facility] [address] [place], [address] Cholesterol [Mass/Vol] 144 mg/dL Normal <=200 [facility] Comment on above: Order Comment: Order Date: 10/12/23 Order Info: 0786-1 - CMP Order Info: 59293-3 - LIPID Order Info: 301-3 - TSH Order Info: 2856-02 - PSA Order Info: 2498-4 - FE Result Comment: Chol esterol level, Desirable <200 mg/dL Borderline high cholesterol 200-239 mg/dL High cholesterol >=240 mg/dL Recommendations of the NCEP Adult Treatment Panel for the following risk-cutoff thresholds for the [place] population. Performed By: #### L 506.1001, L509.1000, L503.0106 #### [facility] [address] [place], [address] Cholesterol in HDL [Mass/Vol] 50 mg/dL Normal [facility] Comment on above: Order Comment: Order Date: 10/12/23 Order Info: 0786-1 - CMP Order Info: 62544-0 - LIPID Order Info: 3 - TSH [...] By: #### L 506.1001, L509.1000, L503.0106 #### [facility] [address] [place], [address] Cholesterol in LDL [Mass/Vol] 63 mg/dL Normal [facility] Comment on above: Order Comment: Order Date: 10/12/23 Order Info: 0786- - CMP Order Info: 80317-4 - LIPID Order Info: 3 - TSH Order Info: 2856-02 - PSA Order Info: 2497-05 Result Comment: Bord cdpjoz=432-838 mg/dL Higher Xagc=522 mg/dL or greater Performed By: #### L 506.1001, L509.1000, L503.0106 #### [facility] [address] [place], [address] Cholesterol in VLDL [Mass/Vol] 31 mg/dL Normal 5-40 [facility] Comment on above: Order Comment: Order Date: 10/12/23 Order Info: 0786-1 - CMP Order Info: 71030-3 - LIPID Order Info: 3 - TSH Order Info: 2856-02 - PSA Order Info: 2497-05 Performed By: #### L 506.1001, L509.1000, L503.0106 #### [facility] [address] [place], [address] Triglyceride [Mass/Vol] 155 mg/dL Normal [facility] Comment on above: Order Comment: Order Date: 10/12/23 Order Info: 0786-1 - CMP Order Info: 78135-2 - LIPID Order Info: 3015-04 - TSH Order Info: 2856-02 - PSA Order Info: 2497-05 Result Comment: The drugs N-Acetylcysteine and Metamizole may falsely depress this assay. Normal range: <150 mg/dL Borderline High: 150-199 mg/dL High: 200-499 mg/dL Very High: >500 mg/dL Performed By: #### L 506.1001, L509.1000, L503.0106 #### [facility] [address] [place], [place], [address] MCV (mean corpuscular volume ) determinationOrdered By: Padmini Carrasco on 05-10-2024 MCV (RBC) [Entitic vol] 93.8 fL 80-94 [facility] Mean corpuscular hemoglobin (MCH) determinationOrdered By: Padmini Carrasco on 05-10-2024 MCH (RBC) [Entitic mass] 30.0 pg 27.0-32.0 [facility] Mean corpuscular hemoglobin concentration (MCHC) determinationOrdered By: Padmini Carrasco on 05-10-2024 MCHC (RBC) [Mass/Vol] 32.0 g/dL 32-36 [facility] Mean platelet volume determi nationOrdered By: Padmini Carrasco on 05-10-2024 Platelet mean volume (Bld) [Entitic vol] 9.2 fL 6.2-12.0 [facility] PSA, total screeningOrdered By: Padmini Carrasco on 05-10-2024 Prostate Specific Antigen Screen 0.49 ng/mL 0.02-4.00 [facility] Comment on above: This test was [...] 05-10-2024 PSA,TOT SCREEN 0.49 ng/mL Normal 0.02-4.00 [facility] Comment on above: Order Comment: Order Date: 10/12/23 Order Info: 0786-1 - CMP Order Info: 84671-5 - LIPID Order Info: 3016-3 - TSH [...] By: #### L 506.1001, L509.1000, L503.0106 #### [facility] [address] [place], [address] PTH intactOrdered By: Horacio Carrasco on 05-10-2024 Parathyroid Hormone (Intact) 74 pg/mL High [facility] PTHINon 05-10-2024 PTH 74 pg/mL High [facility] Comment on above: Performed By: #### L 506.1001, L509.1000, L503.0106 #### [facility] [address] [place], [address] Platelet countOrdered By: Rambo Carrasco on 05-10-2024 Platelets (Bld) [#/Vol] 168 10*3/uL 150-450 [facility] Potassium (Unsp spec) [Mass/ Vol]Ordered By: Padmini Carrasco on 05-10-2024 Potassium [Moles/Vol] 4.8 mmol/L 3.3-5.1 [facility] Potassium measurement (mass/ volume)Ordered By: Padmini Carrasco on 05-10-2024 Potassium (Unsp spec) [Mass/Vol] 4.8 mmol/L 3.3-5.1 [facility] RBC Auto (Bld) [#/Vol]Ordere d By: Padmini Carrasco on 05-10-2024 RBC (Bld) [#/Vol] 4.53 10*6/uL Low 4.6-6.2 [facility] Screening total cholesterol/ high density lipoprotein (HDL) cholesterol ratioOrdered By: Padmini Carrasco on 05-10-2024 Cholesterol.total/Prisca sterol in HDL [Mass ratio] 2.86 {ratio} [facility] Serum creatinine measurement (mass/volume)Ordered By: Padmini Carrasco on 05-10-2024 Creatinine [Mass/Vol] 1.64 mg/dL High 0.70-1.20 [facility] Serum globulin measurementOr dered By: Padmini Carrasco on 05-10-2024 Globulin (S) [Mass/Vol] 2.8 g/dL 2.2-4.2 [facility] Serum glucose measurement (m ass/volume)Ordered By: Padmini Carrasco on 05-10-2024 Glucose [Mass/Vol] 163 mg/dL High 70-99 [facility] Serum or plasma alanine perales otransferase (ALT) measurementOrdered By: Padmini Carrasco on 05-10-2024 ALT [Catalytic activity/Vol] 6 U/L <47 [facility] Serum or plasma albumin jamel urement (mass/volume)Ordered By: Padmini Carrasco on 05-10-2024 Albumin [Mass/Vol] 3.9 g/dL 3.4-4.8 [facility] Serum or plasma albumin/glob ulin mass ratioOrdered By: Padmini Carrasco on 05-10-2024 Albumin/Globulin [Mass ratio] 1.4 {ratio} 0.9-2.4 [facility] Serum or plasma alkaline masha sphatase measurementOrdered By: Padmini Carrasco on 05-10-2024 ALP [Catalytic activity/Vol] 73 U/L 40-129 [facility] Serum or plasma calcium jamel urement (mass/volume)Ordered By: Padmini Carrasco on 05-10-2024 Calcium [Mass/Vol] 9.0 mg/dL 7.6-11.0 [facility] Serum or plasma cholesterol in HDL measurement (mass/volume)Ordered By: Padmini Carrasco on 05-10-2024 Cholesterol in HDL [Mass/Vol] 50 mg/dL >40 [facility] Comment on above: National Cholesterol Education Program (NCEP) guidelines:<40 mg/dL: Low HDL-cholesterol (major risk factor for CHD)>= 60 mg/dL: High HDL-cholesterol (negative risk factor for CHD)HDL-cholesterol is affected by a number of factors, e.g. smoking, exercise, hormones, sex and age. Serum or plasma cholesterol measurement (mass/volume)Ordered By: Padmini Carrasco on 05-10-2024 Cholesterol [Mass/Vol] 144 mg/dL <201 [facility] Comment on above: Cholesterol level, D esirable <200 mg/dLBorderline high cholesterol 200-239 mg/dLHigh cholesterol >=240 mg/dLRecommendations of the NCEP Adult Treatment Panel for the following risk-cutoff thresholds for the [place] population. Serum or plasma urea nitroge n measurement (mass/volume)Ordered By: Padmini Carrasco on 05-10-2024 Urea nitrogen [Mass/Vol] 28 mg/dL High 4-19 [facility] Sodium levelOrdered By: Jaz Carrasco on 05-10-2024 Sodium [Moles/Vol] 138 mmol/L 133-145 [facility] TSH DL <= 0.005 mIU/L QnOrde red By: Padmini Carrasco on 05-10-2024 Thyroid Stimulating Hormone (TSH) 3.680 uIU/mL 0.300-4.200 [facility] TSH Qn 3.680 uIU/mL 0.300-4.200 [facility] Thyroid Stim Hormone (TSH)on 05-10-2024 TSH 3.680 uIU/mL Normal 0.300-4.200 [facility] Comment on above: Order Comment: Order Date: 10/12/23 Order Info: 0786-1 - CMP Order Info: 81295-2 - LIPID Order Info: 30163 - TSH Order Info: 28508-07 - PSA Order Info: 24909-10 - FE Performed By: #### L 506.1001, L509.1000, L503.0106 #### [facility] [address] [place], [place], [address] Total proteinOrdered By: Agueda Carrasco on 05-10-2024 Protein [Mass/Vol] 6.7 g/dL 5.9-8.4 [facility] Triglycerides measurementOrd ered By: Padmini Carrasco on 05-10-2024 Triglyceride [Mass/Vol] 155 mg/dL <199 [facility] Comment on above: The drugs N-Acetylcy steine and Metamizole may falsely depress this assay. Normal range: <150 mg/dLBorderline High: 150-199 mg/dLHigh: 200-499 mg/dLVery High: >500 mg/dL Vitamin B12on 05-10-2024 Cobalamin (Vitamin B12) [Mass/Vol] 355 pg/mL Normal 180-914 [facility] Comment on above: Order Comment: Order Date: 10/12/23 Order Info: 0786-1 - CMP Order Info: [id number] - LIPID Order Info: 3015-04 - TSH Order Info: 2856-02 - PSA Order Info: 24909-10 - FE Performed By: #### L 506.1001, L509.1000, L503.0106 #### [facility] [address] [place], [place], [address] Vitamin B12 ser/plasOrdered By: Padmini Carrasco on 05-10-2024 Cobalamin (Vitamin B12) [Mass/Vol] 355 pg/mL 180-914 [facility] Vitamin D, 25-hydroxyOrdered By: Padmini Carrasco on 05-10-2024 Vitamin D 25-Hydroxy 23.1 ng/mL Low 30-100 [facility] Comment on above: Vitamin D StatusDefi ciency: <20 ng/mL (50nmol/L)Insufficiency: 20-30 ng/mL (50-75 nmol/L)Sufficiency: 30-100 ng/mL (75-250 nmol/L)Toxicity: >100 ng/mL (>250 nmol/L) Vitamin D,25 Hydroxyon 05-10 Vitamin D 25-OH 23.1 ng/mL Low 30-100 [facility] Comment on above: Order Comment: Order Date: 10/12/23 Order Info: 0786-1 - CMP Order Info: 39236-9 - LIPID Order Info: 3016-3 - TSH Order Info: 2857-1 - PSA Order Info: 2498-4 - FE Result Comment: Tory min D Status Deficiency: <20 ng/mL (50nmol/L) Insufficiency: 20-30 ng/mL (50-75 nmol/L) Sufficiency: 30-100 ng/mL (75-250 nmol/L) Toxicity: >100 ng/mL (>250 nmol/L) Performed By: #### L 506.1001, L509.1000, L503.0106 #### [facility] [address] [place], [address] White blood cell (WBC) count Ordered By: Padmini Carrasco on 05-10-2024 WBC (Bld) [#/Vol] 6.9 10*3/uL 4.4-11.0 [facility] Pulmonary Visit Reporton Pulmonary Visit Report [facility] 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 Head Required: No Accompanied by: Self Allergies No [...] the past year?: No PFSH Medical History Wears dentures Wears glasses Bruising Easy bruising High cholesterol Smoker Shortness of breath on exertion History of echocardiogram Cardiology follow-up encounter Stage 3b chronic kidney disease (CKD) Thrombocytopenia Chronic kidney insufficiency Pleural effusion Secondary pulmonary arterial hypertension Atherosclerotic heart disease of [place] coronary artery without angina pectoris Intention tremor Carotid stenosis, bilateral Hyperlipidemia Nonrheumatic aortic (valve) stenosis Essential hypertension Tobacco dependence Bilateral inguinal hernia Left carotid bruit Abdominal aortic aneurysm (AAA) Anemia Subcutane (more content not included)... Normal [facility] Low Dose CT Lung Screeningon 02-21-[address] Lung Screening [facility] [address] [place] [id number] Lung Screening MR#: [id number] Acct: [id number] Name: ABELARDO IVORY Rep #: [id number] : 1950 M 73 From: Lebron mak MD PCP: Dr. Padmini Carrasco MD Status: REG CLI Study: Low Dose CT Lung Screening Date of Exam: 02/20 Exam# [id number] Ordering Dr: Carmina Tee NP [facility]-C [id number] STUDY: LOW DOSE CT LUNG CANCER SCREENING [...] Signed: Lebron Briseno MD at 14:51 EST , CC: TOÑO Tee; Dr. Padmini Carrasco MD Slabbing Machine Operator: Signed Normal [facility] Surgery Visit Reporton 02-01 Surgery Visit Report [facility] [address] [place] [address] OFFICE VISIT Date of Service: 02/02/24 MR#: [id number] Acct: [id number] Name: ABELARDO IVORY Rep #: [id number] : 1950 Provider: Dr. Marquise tsai MD Age/Sex: 73/M Location: [facility] Status: Signed Intake Vital Signs 01/18/24 10:01 Height 5 ft 6 in Intake Visit Reasons: INGUINAL HERNIA DOS 01/17 Chief Complaint: s/p hernia 11/08 Transportation Department Head Required: No Is patient in pain?: No [...] Diagnoses S/P inguinal hernia repair Z98.890; Z87.19 [facility] Medical History Wears dentures Wears glasses Bruising Easy bruising High cholesterol Smoker Shortness of breath on exertion History of echocardiogram Cardiology follow-up encounter Stage 3b chronic kidney disease (CKD) Thrombocytopenia Chronic kidney insufficiency Pleural effusion Secondary pulmonary arterial hypertension Atherosclerotic heart disease of [place] coronary artery without angina pectoris Intention tremor [...] S/P inguinal hernia repair: Status: Acute Comment: [facility] Plan: Patient is doing well after inguinal hernia repair. Incision is healing well. Activity as tolerated 6 weeks postop Marquise Barillas MD Pager: [facility] [address] [place] [address], [address] [place] [address] Office: 02/02/24 0841 Date [facility]illas [facility] Signature: Date (if applicable) CC: Normal [facility] Discharge Instructionon 01-07 Discharge Instruction [facility] Medical Records Department [address] [place] [address] Instructions for Home/Discharge Instructions 01/18/24 1159 MR#: [id number] Acct: [id number] Name: ABELARDO IVORY Rep #: [id number] : 1950 73 From: Marquise Barillas MD PCP: Dr. Padmini Carrasco MD [place] [facility] Inst[place] Procedure Hernia Diet Discharge Diet: [...] to schedule 2 week follow up appointment. [phone] Test Results: Test results from this visit will be discussed in further detail at your follow-up appointment, if applicable. Discharge Plan Admission Attending Provider: Marquise Barillas Primary Care Provider: Padmini Carrasco Instructions Print Language: Bangladeshi Discharge Orders/Prescriptions Prescriptions: New oxycodone 5 mg [...] MD CC: Dr. Padmini Carrasco MD Signed [facility] MR/POSTOP.Layla 01-18-2024 MR/POSTOP.[facility] Medical Records Department [address] [place] [address] Anesthesia Postop Eval I 01/18/24 1143 MR#: [id number] Acct: [id number] Name: ABELARDO IVORY Rep #: [id number] : 1950 73 From: Arnold Clemons MD PCP: Dr. Padmini Carrasco MD Status:[place] [facility] [place] Race: C Location: [place] [address] Anesthesia: Postop Eval I Current Vital Signs [...] MD Cosigner Signature: Date CC: Signed [facility] MR/[id number] [facility]-18-2024 [facility] Medical Records Department [address] [place] [address] Anesthesia Postop Eval II 01/18/24 1338 MR#: [id number] Acct: [id number] Name: ABELARDO IVORY Rep #: [id number] : 1950 73 From: Jose Cisneros MD PCP: Dr. Padmini Carrasco MD Status:REG [place] Y Race: C Location: [place] [address] Anesthesia Postop Eval I Sum Postop Eval [...] No Vomiting: No 01/18/24 1338 Date Jose Jackson Signature: Date CC: Signed [facility] Operative Reporton 4 Operative Report [facility] Medical Records Department [address] [place] [address] Operative Report 01/18/24 1156 MR#: [id number] Acct: [id number] Name: ABELARDO IVORY Rep #: [id number] : 1950 73 From: Marquise Barillas MD PCP: Dr. Padmini Carrasco MD Status:[facility] Location: [place] [address] Operative Report (Standard) Operative Information Date of Procedure: 01/18/24 Pre-Operative Diagnosis: Left inguinal hernia Post-Operative Diagnosis: Left inguinal hernia Surgery/Procedure Performed: Left inguinal hernia repair with mesh compo conveyor operator: Yes Brusher Tender: Thuy Vaz Tasks completed by family and divorce legal assistant: Opening, Closing and Retracting Type of Anesthesia: [...] and the cord was lifted with a Donna drain. The base of the inguinal canal [...] VTE Documentation VTE Mechan Device Prophylaxis: SCD's 01/18/24 1860 Cosigner Signature (if applicable): CC: Dr. Marquise Barillas MD; Dr. Padmini Carrasco MD Signed [facility] Surgery Specimen Level IIon 01-18-2024 Surgery Specimen Level II Patient Age/Sex Location Account Attending Physician ABELARDO IVORY 73/M [facility] [id number]. Marquise Barillas MD Specimen: [id number] Received: 01/18/24-121 Status: EZEQUIEL Mack Num: [id number] Spec Type: Hernia Subm Dr: Dr. Marquise [...] x 1.0cm. No mass lesion is identified. Money Room Supervisor sections are submitted in one cassette. SJ. 01/18/2024 TC:5 CPT:51240 Patient Age/Sex Location Account Attending Physician ABELARDO IVORY 73/M [facility] [id number] Dr. Marquise Barillas MD Signed (signature on file) Dr. Alex Rice, DO 01/19/24 1143 [facility] Comment on above: Performed By: #### P SUII ####[facility] [address] [place], [place], [address] Surgery Visit Reporton 11-22 Surgery Visit Report [facility] [address] [place] [address] OFFICE VISIT Date of Service: 11/23/23 MR#: [id number] Acct: [id number] Name: ABELARDO IVORY Rep #: [id number] : 1950 Provider: Dr. 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 Marquise Barillas MD Pager: [facility] [address] [place] [address], [address] [place] [address] Office: 11/23/23 0910 Date [facility]illas [facility] Signature: Date (if applicable) CC: [facility] Discharge Instructionon Discharge Instruction [facility] Medical Records Department [address] [place] [address] Instructions for Home/Discharge Instructions 11/09/23 1144 MR#: [id number] Acct: [id number] Name: ABELARDO IVORY Rep #: [id number] : 1950 73 From: Marquise Barillas MD PCP: Dr. Padmini Carrasco MD Status[place] [facility] [place] Instructions Procedure Hernia Diet Discharge Diet: [...] to schedule 2 week follow up appointment. [phone] Test Results: Test results from this visit will be discussed in further detail at your follow-up appointment, if applicable. Discharge Plan Admission Attending Provider: Marquise Barillas Primary Care Provider: Padmini Carrasco Instructions Print Language: Bangladeshi Discharge Orders/Prescriptions Prescriptions: New oxycodone 5 mg [...] CC: Dr. Padmini Carrasco MD Signed [facility] MR/POSTOP.Layla 11-09-2023 MR/POSTOP.[facility] Medical Records Department [address] [place] [address] Anesthesia Postop Eval I 11/09/23 1135 MR#: [id number] Acct: [id number] Name: ABELARDO IVORY Rep #: [id number] : 1950 73 From: Yojana Jenkins PCP: Dr. Padmini Carrasco MD Status:[place] [facility] [place] Race: C Location: [place] [address] Anesthesia: Postop Eval I Current Vital Signs [...] Date Yojana Jackson Signature: Date CC: Signed [facility] MR/[id number] 11-09-2023 [facility] Medical Records Department [address] [place] [address] Anesthesia Postop Eval II 11/09/23 1146 MR#: [id number] Acct: [id number] Name: ABELARDO IVORY Rep #: [id number] : 1950 73 From: Kwame Belle MD PCP: Dr. Padmini Carrasco MD Status:[place] [facility] Y Race: C Location: [place] [address] Anesthesia Postop Eval I Sum Postop Eval Completion status Anesthesia document: Postop Eval 1 completed: Yes Anesthesia Postop Eval I Summary Anesthesia Postop Eval I Summary: Anesthesia Postop Eval I: Assessment Summary Airway patent Yes 11/09/23 11:35 PANTS MAKER.CSIR Spontaneous unlabored Yes 11/09/23 11:35 PANTS MAKER.CSIR respirations Mental status nausea No 11/09/23 11:35 PANTS MAKER.CSIR Vomiting No 11/09/23 11:35 PANTS MAKER.CSIR Anesthesia Postop Eval I: Fluid Summary Crystalloid volume administer 500 11/09/23 11:35 PANTS MAKER.CSIR (ml) Colloids volume administered ( ml) Blood Product volume administered (ml) Total IV fluid infused 500 11/09/23 11:35 PANTS MAKER.CSIR Anesthesia Postop Eval I: Summary Notes Anesthesia Complication No 11/09/23 11:35 PANTS MAKER.CSIR Anesthesia Complication Comment: Post-operative progress note Anesthesia: Postop Eval II Evaluation Mental status: Awake Pain Level: 0 nausea: No Vomiting: No 11/09/23 1146 Date Kwame Belle MD Cosigner Signature: Date CC: Signed [facility] Operative Reporton 4 Operative Report [facility] Medical Records Department [address] [place] [address] Operative Report 11/09/23 1139 MR#: [id number] Acct: [id number] Name: ABELARDO IVORY Rep #: [id number] : 1950 73 From: Marquise Barillas MD PCP: Dr. Padmini Carrasco MD Status:[facility] Location: [place] [address] Report of Operation Date of Procedure: 11/09/23 [...] cord was identified as well and a Sadiq was placed around the cord. Next after [...] MD; Dr. Padmini Carrasco MD Signed [facility] Surgery Specimen Level IIon 11-09-2023 Surgery Specimen Level II Patient Age/Sex Location Account Attending Physician ABELARDO IVORY 73/M [facility] [id number] Dr. Marquise Barillas MD Specimen: [id number] Received: 11/09/23 Status: EZEQUIEL Mack Num: [id number] Spec Type: Hernia Subm Dr: Dr. Marquise Barillas MD HEADER OPERATION: Open hernia, inguinal with mesh PRE-OP DIAGNOSIS: Right inguinal hernia TISSUE SUBMITTED: Right inguinal hernia sac MICROSCOPIC DIAGNOSIS Right inguinal hernia sac: A piece of fibroadipose and fibroconnective tissue consistent with hernia sac with focal dense fibrosis, reactive changes and granulation tissue reaction. 11/10/2023 MICROSCOPIC DESCRIPTION Slides are reviewed. GROSS DESCRIPTION Received in fixative is one container labeled with the patient's name and designated Right inguinal hernia sac. The specimen consists of an irregular piece of yellow-pink soft tissue measuring 15.0 x 7.0 x 1.0cm. Sections do not reveal any mass lesions. Money Room Supervisor sections are submitted in one cassette. 11/09/2023 TC:5 CPT:12204 Patient Age/Sex Location Account Attending Physician ABELARDO IVORY 73/M [facility] [id number] Dr. Marquise Barillas MD Signed (signature on file) Dr. Keith Gates MD 11/10/23 1326 [facility] Comment on above: Performed By: #### L 506.1001, L509.1000, L503.0106 #### [facility] [address] [place], [address] 12 Lead EKGon 10-27-2023 12 Lead EKG [facility] [address] [place] [address] 12 Lead EKG 10/27/23 1215 MR#: [id number] Acct: [id number] Name: ABELARDO IVORY Rep #: [id number] : 1950 73 From: Evgeny Jacobo MD Attending Dr: Dr. Marquise Barillas MD Status: PRE SDC Ordering Dr: Kwame Belle MD Date: 10/27/23 [place] [facility] Sex: M C Admitted: Test Reason : PRE OP Blood Pressure : / mmHG Vent. Rate : 054 BPM Atrial Rate : 054 BPM P-R Int : 162 ms QRS Dur : 088 ms QT Int : 414 ms P-R-T Axes : 080 083 084 degrees QTc Int : 392 ms Sinus bradycardia Otherwise normal ECG Confirmed by Evgeny Jacobo ([id number]), communications editor ABIDA RODAS ([id number]) on 10/31/2023 10:18:03 AM Referred By: Marquise Barillas Confirmed By:Evgeny Jacobo 10/31/23 1018 Date Evgeny Jacobo MD CC: Dr. Marquise Barillas MD; Dr. Padmini Carrasco MD; Dr. Kwame Belle MD Signed [facility] Basic Metabolic Profile (BMP )on 10-27-2023 BUN/CRE 17.7 RATIO [facility] Comment on above: Performed By: #### L 100.0500, L500.2500 #### [facility] [address] [place], [address] CA,Total 8.7 mg/dL Normal 8.5-10.1 [facility] Comment on above: Performed By: #### L 100.0500, L500.2500 #### [facility] [address] [place], [address] Chloride [Moles/Vol] 104 mmol/L Normal 98-107 [facility] Comment on above: Performed By: #### L 100.0500, L500.2500 #### [facility] [address] [place], [address] CO2 [Moles/Vol] 28.0 mmol/L Normal 21.0-32.0 [facility] Comment on above: Performed By: #### L 100.0500, L500.2500 #### [facility] [address] [place], [address] Creatinine [Mass/Vol] 1.47 mg/dL High 0.70-1.30 [facility] Comment on above: Result Comment: The validity of the calculated GFR GFRAA in patients over 70 years has not been determined. Clinical correlation is essential. Performed By: #### L 100.0500, L500.2500 #### [facility] [address] [place], [address] EST GFR - AA 60 mL/min Normal >60 [facility] Comment on above: Result Comment: Afri can [place] GFR Calc Performed By: #### L 100.0500, L500.2500 #### [facility] [address] [place], [address] GAP 4 Low 5-15 [facility] Comment on above: Performed By: #### L 100.0500, L500.2500 #### [facility] [address] [place], [address] GFR/1.73 sq M.predicted among non-blacks MDRD (S/P/Bld) [Vol rate/Area] 50 mL/min/{1.73_m2} Low >60 [facility] Comment on above: Result Comment: Non- GFR Calc Performed By: #### L 100.0500, L500.2500 #### [facility] [address] [place], [address] Glucose [Mass/Vol] 103 mg/dL Normal 74-106 [facility] Comment on above: Result Comment: Fast ing Glucose result from 100 to 125 mg/dL suggests IMPAIRED HOMEOSTASIS per A.D.A. criteria. Performed By: #### L 100.0500, L500.2500 #### [facility] [address] [place], [address] Potassium [Moles/Vol] 4.4 mmol/L Normal 3.5-5.1 [facility] Comment on above: Performed By: #### L 100.0500, L500.2500 #### [facility] [address] [place], [address] Sodium [Moles/Vol] 136 mmol/L Normal 136-145 [facility] Comment on above: Performed By: #### L 100.0500, L500.2500 #### [facility] [address] [place], [address] Urea nitrogen [Mass/Vol] 26 mg/dL High 7-18 [facility] Comment on above: Performed By: #### L 100.0500, L500.2500 #### [facility] [address] [place], [address] CBC-Complete Blood Cnt No Di ffon 10-27-2023 Erythrocyte distribution width (RBC) [Ratio] 13.3 % Normal 11.6-14.6 [facility] Comment on above: Performed By: #### L 100.0500, L500.2500 #### [facility] [address] [place], [address] Hematocrit (Bld) [Volume fraction] 40.7 % Normal 40-54 [facility] Comment on above: Performed By: #### L 100.0500, L500.2500 #### [facility] [address] [place], [address] Hemoglobin (Bld) [Mass/Vol] 13.0 g/dL Normal 13.0-16.5 [facility] Comment on above: Performed By: #### L 100.0500, L500.2500 #### [facility] [address] [place], [address] MCH (RBC) [Entitic mass] 29.5 pg Normal 27.0-32.0 [facility] Comment on above: Performed By: #### L 100.0500, L500.2500 #### [facility] [address] [place], [address] MCHC (RBC) [Mass/Vol] 31.9 g/dL Low 32-36 [facility] Comment on above: Performed By: #### L 100.0500, L500.2500 #### [facility] [address] [place], [address] MCV (RBC) [Entitic vol] 92.3 fL Normal 80-94 [facility] Comment on above: Performed By: #### L 100.0500, L500.2500 #### [facility] [address] [place], [address] Platelet mean volume (Bld) [Entitic vol] 8.6 fL Normal 6.2-12.0 [facility] Comment on above: Performed By: #### L 100.0500, L500.2500 #### [facility] [address] [place], [address] Platelets (Bld) [#/Vol] 164 10*3/uL Normal 150-450 [facility] Comment on above: Performed By: #### L 100.0500, L500.2500 #### [facility] [address] [place], [address] RBC (Bld) [#/Vol] 4.41 10*6/uL Low 4.6-6.2 [facility] Comment on above: Performed By: #### L 100.0500, L500.2500 #### [facility] [address] [place], [address] RDW SD 45.3 fl High 35.1-43.9 [facility] Comment on above: Performed By: #### L 100.0500, L500.2500 #### [facility] [address] [place], [address] WBC (Bld) [#/Vol] 6.8 10*3/uL Normal 4.4-11.0 [facility] Comment on above: Performed By: #### L 100.0500, L500.2500 #### [facility] [address] [place], [address] Surgery Visit Reporton 10-23 Surgery Visit Report [facility] [address] [place] [address] OFFICE VISIT Date of Service: 10/24/23 MR#: [id number] Acct: [id number] Name: ABELARDO IVORY Rep #: [id number] : 1950 Provider: Dr. 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 [facility] Basophil percentageOrdered B y: Farheen Alexander on 02-28-2023 Bilirubin [Mass/Vol] 0.20 mg/dL 0.20-1.00 [facility] Comment on above: For patients on eltr ombopag therapy, use of Dimension [place] TBIL is not recommended. Cholesterol [Mass/Vol] 119 mg/dL <200 [facility] Comment on above: <200 mg/dL Desirable 200-240 mg/dL Borderline >240 mg/dL High Risk Protein [Mass/Vol] 7.4 g/dL 6.4-8.2 [facility] Triglyceride [Mass/Vol] 100 mg/dL <199 [facility] Comment on above: The drugs N-Acetylcy steine and Metamizole may falsely depress this assay.Serum Triglycerides Reference Interval Normal <150 mg/dL Borderline high 150 - 199 mg/dL High 200 - 499 mg/dL Very High > or = 500 mg/dL Direct bilirubinOrdered By: Farheen Alexander on 02-28-2023 Bilirubin.direct [Mass/Vol] 0.11 mg/dL 0.00-0.30 [facility] High density lipoprotein (HD L) measurementOrdered By: Farheen Alexander on 02-28-2023 Cholesterol in HDL (Body fld) [Mass/Vol] 49 mg/dL >40 [facility] Comment on above: The drugs N-Acetylcy steine and Metamizole may falsely depress this assay. Reference Range HDL <40 mg/dL Low HDL Cholesterol HDL >or= 60 mg/dL High HDL Cholesterol Laboratory - Chemistry and C hemistry - challengeOrdered By: Farheen Alexander on 02-28-2023 ALP [Catalytic activity/Vol] 84 U/L 45-117 [facility] ALT [Catalytic activity/Vol] 12 U/L 16-61 [facility] Globulin (S) [Mass/Vol] 4.0 g/dL 2.2-4.2 [facility] Low density lipoprotein (LDL ) cholesterol measurementOrdered By: Farheen Alexander on 02-28-2023 Cholesterol in LDL (Body fld) [Moles/Vol] 50 mg/dL 0-130 [facility] Thin prep Papanicolaou smear with manual screeningOrdered By: Farheen Alexander on 02-28-2023 Thin prep Papanicolaou smear with manual screening 3.4 g/dL 3.2-5.0 [facility] Thin prep Papanicolaou smear with manual screening 13 U/L 15-37 [facility] Very low density lipoprotein (VLDL) cholesterol measurementOrdered By: Farheen Alexander on 02-28-2023 Cholesterol in VLDL Calc [Moles/Vol] 20 mg/dL 5-40 [facility] Basophil percentageOrdered B y: Ezekiel Carrasco on 12-14-2022 Chloride [Moles/Vol] 104 mmol/L 98-107 [facility] Glucose [Mass/Vol] 125 mg/dL 74-106 [facility] Comment on above: Fasting Glucose resu lt from 100 to 125 mg/dL suggests IMPAIRED HOMEOSTASIS per A.D.A. criteria. Potassium [Moles/Vol] 4.6 mmol/L 3.5-5.1 [facility] Sodium [Moles/Vol] 137 mmol/L 136-145 [facility] WBC (Bld) [#/Vol] 7.9 10*3/uL 4.4-11.0 [facility] Blood erythrocytes count (nu mber/volume)Ordered By: Ezekiel Carrasco on 12-14-2022 RBC (Bld) [#/Vol] 4.24 10*6/uL 4.6-6.2 [facility] Blood hemoglobin measurement (mass/volume)Ordered By: Ezekiel Carrasco on 12-14-2022 Hemoglobin (Bld) [Mass/Vol] 11.4 g/dL 13.0-16.5 [facility] Blood platelet mean volumeOr dered By: Ezekiel Carrasco on 12-14-2022 Platelet mean volume (Bld) [Entitic vol] 9.0 fL 6.2-12.0 [facility] Determination of erythrocyte mean corpuscular volume (MCV)Ordered By: Ezekiel Carrasco on 12-14-2022 MCV (RBC) [Entitic vol] 90.1 fL 80-94 [facility] Hematocrit Auto (Bld) [Volum e fraction]Ordered By: Ezekiel Carrasco on 12-14-2022 Hematocrit (Bld) [Volume fraction] 38.2 % 40-54 [facility] Iron measurement (mass/mass) Ordered By: Ezekiel Carrasco on 12-14-2022 Iron (Unsp spec) [Mass/Mass] 31 ug/dL 65-175 [facility] - Chemistry and C hemistry - challengeOrdered By: Ezekiel Carrasco on 12-14-2022 Natriuretic peptide B (Bld) [Mass/Vol] 71.3 pg/mL 0-100 [facility] CO2 [Moles/Vol] 29.0 mmol/L 21.0-32.0 [facility] Urea nitrogen/Creatinine [Mass ratio] 17.7 mg/mg 10-20 [facility] - Hematology and Cell countsOrdered By: Ezekiel Carrasco on 12-14-2022 Erythrocyte distribution width (RBC) [Entitic vol] 47.3 fL 35.1-43.9 [facility] Erythrocyte distribution width (RBC) [Ratio] 14.3 % 11.6-14.6 [facility] MCH (RBC) [Entitic mass] 26.9 pg 27.0-32.0 [facility] MCHC Auto (RBC) [Mass/Vol]Or dered By: Ezekiel Carrasco on 12-14-2022 MCHC (RBC) [Mass/Vol] 29.8 g/dL 32-36 [facility] No Panel InformationOrdered By: Ezekiel Carrasco on 12-14-2022 Estimated GFR (MDRD) Amer 53 mL/min >60 [facility] Comment on above: GFR Calc Estimated GFR (MDRD) Non-Af Amer 44 mL/min >60 [facility] Comment on above: Non- GFR Calc Parathyroid Hormone (Intact) 83.4 pg/mL 18.4-80.1 [facility] Vitamin D 25-Hydroxy 28.8 ng/mL [facility] Comment on above: Vitamin D 25(OH) Sta tus Range Deficiency <20 ng/mL (50nmol/L) Insufficiency 20 - 30 ng/mL (50 - 75 nmol/L) Sufficiency 30 - 100 ng/mL (75 - 250 nmol/L) Toxicity >100 ng/mL (>250 nmol/L) Platelets bldOrdered By: Agueda Carrasco on 12-14-2022 Platelets (Bld) [#/Vol] 278 10*3/uL 150-450 [facility] Serum or plasma calcium jamel urement (mass/volume)Ordered By: Ezekiel Carrasco on 12-14-2022 Calcium [Mass/Vol] 8.9 mg/dL 8.5-10.1 [facility] Serum or plasma creatinine m easurement (mass/volume)Ordered By: Ezekiel Carrasco on 12-14-2022 Creatinine [Mass/Vol] 1.64 mg/dL 0.70-1.30 [facility] Comment on above: The validity of the calculated GFR & GFRAA in patients over 70 years has not been determined. Clinical correlation is essential. Serum or plasma urea nitroge n measurement (mass/volume)Ordered By: Ezekiel Carrasco on 12-14-2022 Urea nitrogen [Mass/Vol] 29 mg/dL 7-18 [facility] Thin prep Papanicolaou smear with manual screeningOrdered By: Ezekiel Carrasco on 12-14-2022 Thin prep Papanicolaou smear with manual screening 4 5-15 [facility] Basophil percentageOrdered B y: Ezekiel Carrasco on 08-16-2022 Bilirubin [Mass/Vol] 0.30 mg/dL 0.20-1.00 [facility] Comment on above: For patients on eltr ombopag therapy, use of Dimension [place] TBIL is not recommended. Chloride [Moles/Vol] 106 mmol/L 98-107 [facility] Glucose [Mass/Vol] 136 mg/dL 74-106 [facility] Comment on above: Fasting Glucose resu lt greater than or equal to 126 mg/dL suggests DIABETES MELLITUS per A.D.A. criteria. Potassium [Moles/Vol] 4.0 mmol/L 3.5-5.1 [facility] Protein [Mass/Vol] 7.0 g/dL 6.4-8.2 [facility] Sodium [Moles/Vol] 138 mmol/L 136-145 [facility] WBC (Bld) [#/Vol] 6.0 10*3/uL 4.4-11.0 [facility] Blood erythrocytes count (nu mber/volume)Ordered By: Ezekiel Carrasco on 08-16-2022 RBC (Bld) [#/Vol] 4.10 10*6/uL 4.6-6.2 [facility] Blood hemoglobin measurement (mass/volume)Ordered By: Ezekiel Carrasco on 08-16-2022 Hemoglobin (Bld) [Mass/Vol] 11.7 g/dL 13.0-16.5 [facility] Blood platelet mean volumeOr dered By: Ezekiel Carrasco on 08-16-2022 Platelet mean volume (Bld) [Entitic vol] 8.9 fL 6.2-12.0 [facility] Determination of erythrocyte mean corpuscular volume (MCV)Ordered By: Ezekiel Carrasco on 08-16-2022 MCV (RBC) [Entitic vol] 91.7 fL 80-94 [facility] Hematocrit Auto (Bld) [Volum e fraction]Ordered By: Ezekiel Carrasco on 08-16-2022 Hematocrit (Bld) [Volume fraction] 37.6 % 40-54 [facility] Hemoglobin in reticulocytes (mass per reticulocyte)Ordered By: Ezekiel Carrasco on 08-16-2022 Hemoglobin (Reticulocytes) [Entitic mass] 31.1 pg 30-35 [facility] Iron measurement (mass/mass) Ordered By: Ezekiel Carrasco on 08-16-2022 Iron (Unsp spec) [Mass/Mass] 45 ug/dL 65-175 [facility] - Chemistry and C hemistry - challengeOrdered By: Ezekiel Carrasco on 08-16-2022 Natriuretic peptide B (Bld) [Mass/Vol] 196.1 pg/mL 0-100 [facility] ALP [Catalytic activity/Vol] 68 U/L 45-117 [facility] ALT [Catalytic activity/Vol] 11 U/L 16-61 [facility] CO2 [Moles/Vol] 29.0 mmol/L 21.0-32.0 [facility] Cobalamin (Vitamin B12) [Mass/Vol] 188 pg/mL 211-911 [facility] Globulin (S) [Mass/Vol] 3.7 g/dL 2.2-4.2 [facility] Urea nitrogen/Creatinine [Mass ratio] 12.7 mg/mg 10-20 [facility] - Hematology and Cell countsOrdered By: Ezekiel Carrasco on 08-16-2022 Erythrocyte distribution width (RBC) [Entitic vol] 47.7 fL 35.1-43.9 [facility] Erythrocyte distribution width (RBC) [Ratio] 14.2 % 11.6-14.6 [facility] MCH (RBC) [Entitic mass] 28.5 pg 27.0-32.0 [facility] MCHC Auto (RBC) [Mass/Vol]Or dered By: Ezekiel Carrasco on 08-16-2022 MCHC (RBC) [Mass/Vol] 31.1 g/dL 32-36 [facility] No Panel InformationOrdered By: Ezekiel Carrasco on 08-16-2022 Estimated GFR (MDRD) Amer 53 mL/min >60 [facility] Comment on above: GFR Calc Estimated GFR (MDRD) Non-Af Amer 43 mL/min >60 [facility] Comment on above: Non- GFR Calc Immature Reticulocyte Fraction 8.60 % 3.00-15.90 [facility] Reticulocyte Count 0.92 % 0.5-1.5 [facility] Thyroid Stimulating Hormone (TSH) 1.68 uIU/mL 0.358-3.74 [facility] Total Iron Binding Capacity 323 ug/dL 250-450 [facility] Platelets bldOrdered By: Chr istopalexia Luna on 08-16-2022 Platelets (Bld) [#/Vol] 181 10*3/uL 150-450 [facility] Serum or plasma albumin jamel urement (mass/volume)Ordered By: Ezekiel Carrasco on 08-16-2022 Albumin [Mass/Vol] 3.3 g/dL 3.2-5.0 [facility] Serum or plasma albumin/glob ulin mass ratioOrdered By: Ezekiel Carrasco on 08-16-2022 Albumin/Globulin [Mass ratio] 0.9 {ratio} 0.9-2.4 [facility] Serum or plasma calcium jamel urement (mass/volume)Ordered By: Ezekiel Carrasco on 08-16-2022 Calcium [Mass/Vol] 8.6 mg/dL 8.5-10.1 [facility] Serum or plasma creatinine m easurement (mass/volume)Ordered By: Ezekiel Carracso on 08-16-2022 Creatinine [Mass/Vol] 1.66 mg/dL 0.70-1.30 [facility] Comment on above: The validity of the calculated GFR & GFRAA in patients over 70 years has not been determined. Clinical correlation is essential. Serum or plasma ferritin ahmet surement (mass/volume)Ordered By: Ezekiel Carrasco on 08-16-2022 Ferritin [Mass/Vol] 49 ng/mL 26-388 [facility] Serum or plasma urea nitroge n measurement (mass/volume)Ordered By: Ezekiel Carrasco on 08-16-2022 Urea nitrogen [Mass/Vol] 21 mg/dL 7-18 [facility] Thin prep Papanicolaou smear with manual screeningOrdered By: Ezekiel Carrasco on 08-16-2022 Thin prep Papanicolaou smear with manual screening 11 U/L 15-37 [facility] Thin prep Papanicolaou smear with manual screening 3 5-15 [facility] Basophil percentageOrdered B y: Isela Kwok on 05-17-2022 Chloride [Moles/Vol] 107 mmol/L 98-107 [facility] Glucose [Mass/Vol] 99 mg/dL 74-106 [facility] Potassium [Moles/Vol] 4.3 mmol/L 3.5-5.1 [facility] Sodium [Moles/Vol] 136 mmol/L 136-145 [facility] Laboratory - Chemistry and C hemistry - challengeOrdered By: Isela Kwok on 05-17-2022 CO2 [Moles/Vol] 27.0 mmol/L 21.0-32.0 [facility] Urea nitrogen/Creatinine [Mass ratio] 16.3 mg/mg 10-20 [facility] No Panel InformationOrdered By: Isela Kwok on 05-17-2022 Estimated GFR (MDRD) Amer 53 mL/min >60 [facility] Comment on above: GFR Calc Estimated GFR (MDRD) Non-Af Amer 44 mL/min >60 [facility] Comment on above: Non- GFR Calc Serum or plasma calcium jamel urement (mass/volume)Ordered By: Isela Kwok on 05-17-2022 Calcium [Mass/Vol] 8.9 mg/dL 8.5-10.1 [facility] Serum or plasma creatinine m easurement (mass/volume)Ordered By: Isela Kwok on 05-17-2022 Creatinine [Mass/Vol] 1.66 mg/dL 0.70-1.30 [facility] Comment on above: The validity of the calculated GFR & GFRAA in patients over 70 years has not been determined. Clinical correlation is essential. Serum or plasma urea nitroge n measurement (mass/volume)Ordered By: Isela Kwok on 05-17-2022 Urea nitrogen [Mass/Vol] 27 mg/dL 7-18 [facility] Thin prep Papanicolaou smear with manual screeningOrdered By: Isela Kwok on 05-17-2022 Thin prep Papanicolaou smear with manual screening 2 5-15 [facility] Basophil percentageOrdered B y: Tc Subramanian on 04-02-2022 Chloride [Moles/Vol] 97 mmol/L 98-107 [facility] Glucose [Mass/Vol] 206 mg/dL 74-106 [facility] Comment on above: Glucose result great er than or equal to 200 mg/dLsuggests DIABETES MELLITUS per A.D.A. criteria. Potassium [Moles/Vol] 4.2 mmol/L 3.5-5.1 [facility] Sodium [Moles/Vol] 135 mmol/L 136-145 [facility] Laboratory - Chemistry and C hemistry - challengeOrdered By: Tc Subramanian on 04-02-2022 CO2 [Moles/Vol] 29.0 mmol/L 21.0-32.0 [facility] Urea nitrogen/Creatinine [Mass ratio] 22.0 mg/mg 10-20 [facility] No Panel InformationOrdered By: Tc Subramanian on 04-02-2022 Estimated GFR (MDRD) Amer 47 mL/min >60 [facility] Comment on above: GFR Calc Estimated GFR (MDRD) Non-Af Amer 39 mL/min >60 [facility] Comment on above: Non- GFR Calc Serum or plasma calcium jamel urement (mass/volume)Ordered By: Tc Subramanian on 04-02-2022 Calcium [Mass/Vol] 8.9 mg/dL 8.5-10.1 [facility] Serum or plasma creatinine m easurement (mass/volume)Ordered By: Tc Subramanian on 04-02-2022 Creatinine [Mass/Vol] 1.82 mg/dL 0.70-1.30 [facility] Comment on above: The validity of the calculated GFR & GFRAA in patients over 70 years has not been determined. Clinical correlation is essential. Serum or plasma urea nitroge n measurement (mass/volume)Ordered By: Tc Subramanian on 04-02-2022 Urea nitrogen [Mass/Vol] 40 mg/dL 7-18 [facility] Thin prep Papanicolaou smear with manual screeningOrdered By: Tc Subramanian on 04-02-2022 Thin prep Papanicolaou smear with manual screening 9 5-15 [facility] Basophil percentageOrdered B y: Tc Subramanian on 03-29-2022 Chloride [Moles/Vol] 98 mmol/L 98-107 [facility] Glucose [Mass/Vol] 101 mg/dL 74-106 [facility] Comment on above: Fasting Glucose resu lt from 100 to 125 mg/dL suggests IMPAIRED HOMEOSTASIS per A.D.A. criteria. Potassium [Moles/Vol] 5.3 mmol/L 3.5-5.1 [facility] Sodium [Moles/Vol] 135 mmol/L 136-145 [facility] Laboratory - Chemistry and C hemistry - challengeOrdered By: Tc Subramanian on 03-29-2022 CO2 [Moles/Vol] 32.0 mmol/L 21.0-32.0 [facility] Urea nitrogen/Creatinine [Mass ratio] 19.3 mg/mg 11-26 [facility] No Panel InformationOrdered By: Tc Subramanian on 03-29-2022 Estimated GFR (MDRD) Amer 30 mL/min >60 [facility] Comment on above: GFR Calc Estimated GFR (MDRD) Non-Af Amer 25 mL/min >60 [facility] Comment on above: Non- GFR Calc Serum or plasma calcium jamel urement (mass/volume)Ordered By: Tc Subramanian on 03-29-2022 Calcium [Mass/Vol] 8.7 mg/dL 8.5-10.1 [facility] Serum or plasma creatinine m easurement (mass/volume)Ordered By: Tc Subramanian on 03-29-2022 Creatinine [Mass/Vol] 2.69 mg/dL 0.70-1.30 [facility] Comment on above: The validity of the calculated GFR & GFRAA in patients over 70 years has not been determined. Clinical correlation is essential. Serum or plasma urea nitroge n measurement (mass/volume)Ordered By: Tc Subramanian on 03-29-2022 Urea nitrogen [Mass/Vol] 52 mg/dL - [facility] Thin prep Papanicolaou smear with manual screeningOrdered By: Tc Subramanian on 03-29-2022 Thin prep Papanicolaou smear with manual screening 5 06-21 [facility] Absolute lymphocyte countOrd ered By: Dr. Carrasco on 03-18-2022 Lymphocytes Auto (Unsp spec) [#/Vol] 1.42 10*3/uL 0.83-4.51 [facility] Basophil percentageOrdered B y: Dr. Carrasco on 03-18-2022 Basophils/100 WBC (Bld) 0.0 % 0-1 [facility] Bilirubin [Mass/Vol] 0.30 mg/dL 0.20-1.00 [facility] Comment on above: For patients on eltr ombopag therapy, use of Dimension [place] TBIL is not recommended. Chloride [Moles/Vol] 98 mmol/L 98-107 [facility] Eosinophils/100 WBC (Bld) 0.0 % 0-5 [facility] Glucose [Mass/Vol] 333 mg/dL 74-106 [facility] Comment on above: Glucose result great er than or equal to 200 mg/dLsuggests DIABETES MELLITUS per A.D.A. criteria. Neutrophils (Bld) [#/Vol] 4.8 10*3/uL 2.0-7.7 [facility] Neutrophils/100 WBC (Bld) 72.7 % 47-70 [facility] Potassium [Moles/Vol] 3.7 mmol/L 3.5-5.1 [facility] Protein [Mass/Vol] 6.3 g/dL 6.4-8.2 [facility] Sodium [Moles/Vol] 140 mmol/L 136-145 [facility] WBC (Bld) [#/Vol] 6.6 10*3/uL 4.4-11.0 [facility] Blood erythrocytes count (nu mber/volume)Ordered By: Dr. Carrasco on 03-18-2022 RBC (Bld) [#/Vol] 3.19 10*6/uL 4.6-6.2 [facility] Blood hemoglobin measurement (mass/volume)Ordered By: Dr. Carrasco on 03-18-2022 Hemoglobin (Bld) [Mass/Vol] 9.1 g/dL 13.0-16.5 [facility] Blood lymphocytes/100 leukoc ytesOrdered By: Dr. Carrasco on 03-18-2022 Lymphocytes/100 WBC (Bld) 21.5 % 19-41 [facility] Blood monocytes/100 leukocyt esOrdered By: Dr. Carrasco on 03-18-2022 Monocytes/100 WBC (Bld) 5.0 % 0-10 [facility] Blood platelet mean volumeOr dered By: Dr. Carrasco on 03-18-2022 Platelet mean volume (Bld) [Entitic vol] 10.0 fL 6.2-12.0 [facility] Determination of erythrocyte mean corpuscular volume (MCV)Ordered By: Dr. Carrasco on 03-18-2022 MCV (RBC) [Entitic vol] 97.8 fL 80-94 [facility] Hematocrit Auto (Bld) [Volum e fraction]Ordered By: Dr. Carrasco on 03-18-2022 Hematocrit (Bld) [Volume fraction] 31.2 % 40-54 [facility] Laboratory - Chemistry and C hemistry - challengeOrdered By: Dr. Carrasco on 03-18-2022 ALP [Catalytic activity/Vol] 114 U/L 45-117 [facility] ALT [Catalytic activity/Vol] 39 U/L 16-61 [facility] CO2 [Moles/Vol] 33.0 mmol/L 21.0-32.0 [facility] Globulin (S) [Mass/Vol] 3.6 g/dL 2.2-4.2 [facility] Natriuretic peptide B (Bld) [Mass/Vol] 2375.1 pg/mL 0-100 [facility] Urea nitrogen/Creatinine [Mass ratio] 30.7 mg/mg 10-20 [facility] Laboratory - Hematology and Cell countsOrdered By: Dr. Carrasco on 03-18-2022 Erythrocyte distribution width (RBC) [Entitic vol] 53.3 fL 35.1-43.9 [facility] Erythrocyte distribution width (RBC) [Ratio] 14.6 % 11.6-14.6 [facility] Immature granulocytes/100 WBC (Bld) 0.800 % 0.0-0.9 [facility] Comment on above: IG% - Immature Granu locytes (promyelocytes, myelocytes and metamyelocytes) > 1% indicates that a LEFT SHIFT is Present. MCH (RBC) [Entitic mass] 28.5 pg 27.0-32.0 [facility] Nucleated RBC/100 WBC (Bld) [Ratio] 0 % 0-5 [facility] Auto (RBC) [Mass/Vol]Or dered By: Dr. Carrasco on 03-18-2022 MCHC (RBC) [Mass/Vol] 29.2 g/dL 32-36 [facility] No Panel InformationOrdered By: Dr. Carrasco on 03-18-2022 Estimated GFR (MDRD) Amer 58 mL/min >60 [facility] Comment on above: GFR Calc Estimated GFR (MDRD) Non-Af Amer 48 mL/min >60 [facility] Comment on above: Non- GFR Calc Platelets bldOrdered By: Dr. Carrasco on 03-18-2022 Platelets (Bld) [#/Vol] 131 10*3/uL 150-450 [facility] Serum or plasma albumin jamel urement (mass/volume)Ordered By: Dr. Carrasco on 03-18-2022 Albumin [Mass/Vol] 2.7 g/dL 3.2-5.0 [facility] Serum or plasma albumin/glob ulin mass ratioOrdered By: Dr. Carrasco on 03-18-2022 Albumin/Globulin [Mass ratio] 0.8 {ratio} 0.9-2.4 [facility] Serum or plasma calcium jamel urement (mass/volume)Ordered By: Dr. Carrasco on 03-18-2022 Calcium [Mass/Vol] 8.2 mg/dL 8.5-10.1 [facility] Serum or plasma creatinine m easurement (mass/volume)Ordered By: Dr. Carrasco on 03-18-2022 Creatinine [Mass/Vol] 1.53 mg/dL 0.70-1.30 [facility] Comment on above: The validity of the calculated GFR & GFRAA in patients over 70 years has not been determined. Clinical correlation is essential. Serum or plasma urea nitroge n measurement (mass/volume)Ordered By: Dr. Carrasco on 03-18-2022 Urea nitrogen [Mass/Vol] 47 mg/dL 7-18 [facility] Thin prep Papanicolaou smear with manual screeningOrdered By: Dr. Carrasco on 03-18-2022 Thin prep Papanicolaou smear with manual screening 22 U/L 15-37 [facility] Thin prep Papanicolaou smear with manual screening 9 5-15 [facility] Absolute lymphocyte countOrd ered By: Kasey Arenas on 03-10-2022 Lymphocytes Auto (Unsp spec) [#/Vol] 1.66 10*3/uL 0.83-4.51 [facility] Basophil percentageOrdered B y: Kasey Arenas on 03-10-2022 Basophils/100 WBC (Bld) 0.0 % 0-1 [facility] Bilirubin [Mass/Vol] 0.50 mg/dL 0.20-1.00 [facility] Comment on above: For patients on eltr ombopag therapy, use of Dimension [place] TBIL is not recommended. Chloride [Moles/Vol] 102 mmol/L 98-107 [facility] Eosinophils/100 WBC (Bld) 0.3 % 0-5 [facility] Glucose [Mass/Vol] 133 mg/dL 74-106 [facility] Comment on above: Fasting Glucose resu lt greater than or equal to 126 mg/dL suggests DIABETES MELLITUS per A.D.A. criteria. Neutrophils (Bld) [#/Vol] 4.1 10*3/uL 2.0-7.7 [facility] Neutrophils/100 WBC (Bld) 65.1 % 47-70 [facility] Potassium [Moles/Vol] 4.5 mmol/L 3.5-5.1 [facility] Protein [Mass/Vol] 6.2 g/dL 6.4-8.2 [facility] Sodium [Moles/Vol] 141 mmol/L 136-145 [facility] WBC (Bld) [#/Vol] 6.3 10*3/uL 4.4-11.0 [facility] Blood erythrocytes count (nu mber/volume)Ordered By: Kasey Arenas on 03-10-2022 RBC (Bld) [#/Vol] 3.24 10*6/uL 4.6-6.2 [facility] Blood hemoglobin measurement (mass/volume)Ordered By: Kasey Arenas on 03-10-2022 Hemoglobin (Bld) [Mass/Vol] 9.3 g/dL 13.0-16.5 [facility] Blood lymphocytes/100 leukoc ytesOrdered By: Kasey Arenas on 03-10-2022 Lymphocytes/100 WBC (Bld) 26.3 % 19-41 [facility] Blood monocytes/100 leukocyt esOrdered By: Kasey Arenas on 03-10-2022 Monocytes/100 WBC (Bld) 7.8 % 0-10 [facility] Blood platelet mean volumeOr dered By: Kasey Arenas on 03-10-2022 Platelet mean volume (Bld) [Entitic vol] 9.9 fL 6.2-12.0 [facility] Determination of erythrocyte mean corpuscular volume (MCV)Ordered By: Kasey Arenas on 03-10-2022 MCV (RBC) [Entitic vol] 99.1 fL 80-94 [facility] Hematocrit Auto (Bld) [Volum e fraction]Ordered By: Kasey Arenas on 03-10-2022 Hematocrit (Bld) [Volume fraction] 32.1 % 40-54 [facility] Laboratory - Chemistry and C hemistry - challengeOrdered By: Kasey Arenas on 03-10-2022 ALP [Catalytic activity/Vol] 144 U/L 45-117 [facility] ALT [Catalytic activity/Vol] 44 U/L 16-61 [facility] CO2 [Moles/Vol] 33.0 mmol/L 21.0-32.0 [facility] Globulin (S) [Mass/Vol] 3.4 g/dL 2.2-4.2 [facility] Urea nitrogen/Creatinine [Mass ratio] 31.5 mg/mg 10-20 [facility] - Hematology and Cell countsOrdered By: Kasey Arenas on 03-10-2022 Erythrocyte distribution width (RBC) [Entitic vol] 56.9 fL 35.1-43.9 [facility] Erythrocyte distribution width (RBC) [Ratio] 15.4 % 11.6-14.6 [facility] Immature granulocytes/100 WBC (Bld) 0.500 % 0.0-0.9 [facility] Comment on above: IG% - Immature Granu locytes (promyelocytes, myelocytes and metamyelocytes) > 1% indicates that a LEFT SHIFT is Present. MCH (RBC) [Entitic mass] 28.7 pg 27.0-32.0 [facility] Nucleated RBC/100 [facility]Bld) [[facility]] 0 % [facility] [Mass/Vol]Or dered By: Kasey Arenas on 03-10-2022 MCHC (RBC) [Mass/Vol] 29.0 g/dL 32-36 [facility] No Panel InformationOrdered By: Kasey Arenas on 03-10-2022 Estimated GFR (MDRD) Amer 61 mL/min >60 [facility] Comment on above: GFR Calc Estimated GFR (MDRD) Non-Af Amer 50 mL/min >60 [facility] Comment on above: Non- GFR Calc Platelets bldOrdered By: Shell Arenas on 03-10-2022 Platelets (Bld) [#/Vol] 109 10*3/uL 150-450 [facility] Serum or plasma albumin jamel urement (mass/volume)Ordered By: Kasey Arenas on 03-10-2022 Albumin [Mass/Vol] 2.8 g/dL 3.2-5.0 [facility] Serum or plasma albumin/glob ulin mass ratioOrdered By: Kasey Arenas on 03-10-2022 Albumin/Globulin [Mass ratio] 0.8 {ratio} 0.9-2.4 [facility] Serum or plasma calcium jamel urement (mass/volume)Ordered By: Kasey Arenas on 03-10-2022 Calcium [Mass/Vol] 8.1 mg/dL 8.5-10.1 [facility] Serum or plasma creatinine m easurement (mass/volume)Ordered By: Kasey Arenas on 03-10-2022 Creatinine [Mass/Vol] 1.46 mg/dL 0.70-1.30 [facility] Comment on above: The validity of the calculated GFR & GFRAA in patients over 70 years has not been determined. Clinical correlation is essential. Serum or plasma urea nitroge n measurement (mass/volume)Ordered By: Kasey Arenas on 03-10-2022 Urea nitrogen [Mass/Vol] 46 mg/dL 7-18 [facility] Thin prep Papanicolaou smear with manual screeningOrdered By: Kasey Arenas on 03-10-2022 Thin prep Papanicolaou smear with manual screening 36 U/L 15-37 [facility] Thin prep Papanicolaou smear with manual screening 6 5-15 [facility] Bacteria identified Respirat ory culture Nom (Unsp spec)Ordered By: Dr. Banks on 03-06-2022 Respiratory Culture Stenotrophomonas maltophilia [facility] Absolute lymphocyte countOrd ered By: Dr. Banks on 03-04-2022 Lymphocytes Auto (Unsp spec) [#/Vol] 0.84 10*3/uL 0.83-4.51 [facility] Basophil percentageOrdered B y: Dr. Banks on 03-04-2022 Basophils/100 WBC (Bld) 0.0 % 0-1 [facility] Chloride [Moles/Vol] 104 mmol/L 98-107 [facility] Eosinophils/100 WBC (Bld) 0.0 % 0-5 [facility] Glucose [Mass/Vol] 223 mg/dL 74-106 [facility] Comment on above: Glucose result great er than or equal to 200 mg/dLsuggests DIABETES MELLITUS per A.D.A. criteria. Neutrophils (Bld) [#/Vol] 3.8 10*3/uL 2.0-7.7 [facility] Neutrophils/100 WBC (Bld) 78.5 % 47-70 [facility] Potassium [Moles/Vol] 5.2 mmol/L 3.5-5.1 [facility] Sodium [Moles/Vol] 139 mmol/L 136-145 [facility] WBC (Bld) [#/Vol] 4.9 10*3/uL 4.4-11.0 [facility] Blood erythrocytes count (nu mber/volume)Ordered By: Dr. Banks on 03-04-2022 RBC (Bld) [#/Vol] 2.99 10*6/uL 4.6-6.2 [facility] Blood hemoglobin measurement (mass/volume)Ordered By: Dr. Banks on 03-04-2022 Hemoglobin (Bld) [Mass/Vol] 8.8 g/dL 13.0-16.5 [facility] Blood lymphocytes/100 leukoc ytesOrdered By: Dr. Banks on 03-04-2022 Lymphocytes/100 WBC (Bld) 17.2 % 19-41 [facility] Blood monocytes/100 leukocyt esOrdered By: Dr. Banks on 03-04-2022 Monocytes/100 WBC (Bld) 3.5 % 0-10 [facility] Blood platelet mean volumeOr dered By: Dr. Banks on 03-04-2022 Platelet mean volume (Bld) [Entitic vol] 10.2 fL 6.2-12.0 [facility] Determination of erythrocyte mean corpuscular volume (MCV)Ordered By: Dr. Banks on 03-04-2022 MCV (RBC) [Entitic vol] 100.7 fL 80-94 [facility] Hematocrit Auto (Bld) [Volum e fraction]Ordered By: Dr. Banks on 03-04-2022 Hematocrit (Bld) [Volume fraction] 30.1 % 40-54 [facility] - Chemistry and C hemistry - challengeOrdered By: Dr. Banks on 03-04-2022 CO2 [Moles/Vol] 28.0 mmol/L 21.0-32.0 [facility] Urea nitrogen/Creatinine [Mass ratio] 24.2 mg/mg 10-20 [facility] - Hematology and Cell countsOrdered By: Dr. Banks on 03-04-2022 Erythrocyte distribution width (RBC) [Entitic vol] 63.7 fL 35.1-43.9 [facility] Erythrocyte distribution width (RBC) [Ratio] 17.0 % 11.6-14.6 [facility] Immature granulocytes/100 WBC (Bld) 0.800 % 0.0-0.9 [facility] Comment on above: IG% - Immature Granu locytes (promyelocytes, myelocytes and metamyelocytes) > 1% indicates that a LEFT SHIFT is Present. MCH (RBC) [Entitic mass] 29.4 pg 27.0-32.0 [facility] Nucleated RBC/100 WBC (Bld) [Ratio] 0 % 0-5 [facility] MCHC Auto (RBC) [Mass/Vol]Or dered By: Dr. Banks on 03-04-2022 MCHC (RBC) [Mass/Vol] 29.2 g/dL 32-36 [facility] No Panel InformationOrdered By: Dr. Banks on 03-04-2022 Estimated Creatinine Clearance Calc 25.11 ml/min [facility] Estimated GFR (MDRD) Amer 34 mL/min >60 [facility] Comment on above: GFR Calc Estimated GFR (MDRD) Non-Af Amer 28 mL/min >60 [facility] Comment on above: Non- GFR Calc Platelets bldOrdered By: Dr. Banks on 03-04-2022 Platelets (Bld) [#/Vol] 104 10*3/uL 150-450 [facility] Serum or plasma calcium jamel urement (mass/volume)Ordered By: Dr. Banks on 03-04-2022 Calcium [Mass/Vol] 8.1 mg/dL 8.5-10.1 [facility] Serum or plasma creatinine m easurement (mass/volume)Ordered By: Dr. Banks on 03-04-2022 Creatinine [Mass/Vol] 2.40 mg/dL 0.70-1.30 [facility] Comment on above: The validity of the calculated GFR & GFRAA in patients over 70 years has not been determined. Clinical correlation is essential. Serum or plasma urea nitroge n measurement (mass/volume)Ordered By: Dr. Banks on 03-04-2022 Urea nitrogen [Mass/Vol] 58 mg/dL 7-18 [facility] Thin prep Papanicolaou smear with manual screeningOrdered By: Dr. Banks on 03-04-2022 Thin prep Papanicolaou smear with manual screening 7 5-15 [facility] Basophil percentageOrdered B y: Dr. Banks on 03-03-2022 Basophil percentage 4.9 mg/dL 2.5-4.9 [facility] Bilirubin [Mass/Vol] 0.60 mg/dL 0.20-1.00 [facility] Comment on above: For patients on eltr ombopag therapy, use of Dimension [place] TBIL is not recommended. Protein [Mass/Vol] 6.8 g/dL 6.4-8.2 [facility] Blood platelet adequacy dete ction by light microscopyOrdered By: Dr. Banks on 03-03-2022 Platelets LM Ql (Bld) MOD DEC ADEQ [facility] Gram stain for investigation of transfusion reactionOrdered By: Dr. Banks on 01-25-2023 Microscopic observation Gram stain Nom (Unsp spec) [facility] - Chemistry and C hemistry - challengeOrdered By: Dr. Banks on 03-03-2022 ALP [Catalytic activity/Vol] 138 U/L 45-117 [facility] ALT [Catalytic activity/Vol] 15 U/L 16-61 [facility] Globulin (S) [Mass/Vol] 4.2 g/dL 2.2-4.2 [facility] Magnesium [Mass/Vol] 1.9 mg/dL 1.6-2.6 [facility] - Hematology and Cell countsOrdered By: Dr. Banks on 03-03-2022 Anisocytosis Ql (Bld) 1+ [facility] Macrocytes detectionOrdered By: Dr. Banks on 03-03-2022 Macrocytes Ql (Bld) 1+ [facility] No Panel InformationOrdered By: Dr. Banks on 03-03-2022 Thyroid Stimulating Hormone (TSH) 2.41 uIU/mL 0.358-3.74 [facility] Review by pathologistOrdered By: Dr. Banks on 03-03-2022 Pathologist review Alvin (Unsp spec) [Interp] Reviewed [facility] Comment on above: Previous reported re sult: Suyapa wagner Edited by: [email or web address] on 03/04/22:1039Pancytopenia.Leukopenia Macrocytic anemia.ThrombocytopeniaClinical correlation necessary.Keith Gates M.D. 03/04/22 AMENDED REPORT 03/04/22 1039 PATH REV previously reported as: Suyapa wagner Serum or plasma albumin jamel urement (mass/volume)Ordered By: Dr. Banks on 03-03-2022 Albumin [Mass/Vol] 2.6 g/dL 3.2-5.0 [facility] Serum or plasma albumin/glob ulin mass ratioOrdered By: Dr. Banks on 03-03-2022 Albumin/Globulin [Mass ratio] 0.6 {ratio} 0.9-2.4 [facility] Thin prep Papanicolaou smear with manual screeningOrdered By: Dr. Banks on 03-03-2022 Thin prep Papanicolaou smear with manual screening 18 U/L 15-37 [facility] Urine Legionella pneumophila antigen detectionOrdered By: Dr. Banks on 03-03-2022 L. pneumophila Ag Ql (U) [facility] Absolute lymphocyte countOrd ered By: Dr. Garland on 03-02-2022 Lymphocytes Auto (Unsp spec) [#/Vol] 1.47 10*3/uL 0.83-4.51 [facility] Basophil percentageOrdered B y: Dr. Garland on 03-02-2022 Basophils/100 WBC (Bld) 0.0 % 0-1 [facility] Chloride [Moles/Vol] 106 mmol/L 98-107 [facility] Eosinophils/100 WBC (Bld) 0.2 % 0-5 [facility] Glucose [Mass/Vol] 112 mg/dL 74-106 [facility] Comment on above: Fasting Glucose resu lt from 100 to 125 mg/dL suggests IMPAIRED HOMEOSTASIS per A.D.A. criteria. Neutrophils (Bld) [#/Vol] 3.6 10*3/uL 2.0-7.7 [facility] Neutrophils/100 WBC (Bld) 66.7 % 47-70 [facility] Potassium [Moles/Vol] 4.5 mmol/L 3.5-5.1 [facility] Sodium [Moles/Vol] 141 mmol/L 136-145 [facility] WBC (Bld) [#/Vol] 5.3 10*3/uL 4.4-11.0 [facility] Blood erythrocytes count (nu mber/volume)Ordered By: Dr. Garland on 03-02-2022 RBC (Bld) [#/Vol] 4.06 10*6/uL 4.6-6.2 [facility] Blood hemoglobin measurement (mass/volume)Ordered By: Dr. Garland on 03-02-2022 Hemoglobin (Bld) [Mass/Vol] 12.0 g/dL 13.0-16.5 [facility] Blood lymphocytes/100 leukoc ytesOrdered By: Dr. Garland on 03-02-2022 Lymphocytes/100 WBC (Bld) 27.6 % 19-41 [facility] Blood monocytes/100 leukocyt esOrdered By: Dr. Garland on 03-02-2022 Monocytes/100 WBC (Bld) 5.1 % 0-10 [facility] Blood platelet mean volumeOr dered By: Dr. Garland on 03-02-2022 Platelet mean volume (Bld) [Entitic vol] 10.3 fL 6.2-12.0 [facility] Determination of erythrocyte mean corpuscular volume (MCV)Ordered By: Dr. Garland on 03-02-2022 MCV (RBC) [Entitic vol] 100.2 fL 80-94 [facility] Hematocrit Auto (Bld) [Volum e fraction]Ordered By: Dr. Garland on 03-02-2022 Hematocrit (Bld) [Volume fraction] 40.7 % 40-54 [facility] Influenza virus A and B and SARS-CoV-2 (COVID-19) Ag panel - Upper respiratory specimOrdered By: Dr. Garland on 03-02-2022 SARS-CoV-2 (COVID-19) RNA AMBER+probe Ql (Resp) [facility] - Chemistry and C hemistry - challengeOrdered By: Dr. Garland on 03-02-2022 CO2 [Moles/Vol] 29.0 mmol/L 21.0-32.0 [facility] Urea nitrogen/Creatinine [Mass ratio] 19.6 mg/mg 10-20 [facility] - Hematology and Cell countsOrdered By: Dr. Garland on 03-02-2022 Anisocytosis Ql (Bld) 1+ [facility] Erythrocyte distribution width (RBC) [Entitic vol] 65.8 fL 35.1-43.9 [facility] Erythrocyte distribution width (RBC) [Ratio] 17.5 % 11.6-14.6 [facility] Immature granulocytes/100 WBC (Bld) 0.400 % 0.0-0.9 [facility] Comment on above: IG% - Immature Granu locytes (promyelocytes, myelocytes and metamyelocytes) > 1% indicates that a LEFT SHIFT is Present. MCH (RBC) [Entitic mass] 29.6 pg 27.0-32.0 [facility] Nucleated RBC/100 WBC (Bld) [Ratio] 0 % 0-5 [facility] MCHC Auto (RBC) [Mass/Vol]Or dered By: Dr. Garland on 03-02-2022 MCHC (RBC) [Mass/Vol] 29.5 g/dL 32-36 [facility] No Panel InformationOrdered By: Dr. Banks on 03-02-2022 Methicillin-Resist S.aureus DNA PCR Negative Negative [facility] No Panel InformationOrdered By: Dr. Garland on 03-02-2022 Estimated Creatinine Clearance Calc 26.90 ml/min [facility] Estimated GFR (MDRD) Amer 37 mL/min >60 [facility] Comment on above: GFR Calc Estimated GFR (MDRD) Non-Af Amer 31 mL/min >60 [facility] Comment on above: Non- GFR Calc Troponin I High Sensitivity 56 pg/mL 3.0-78.0 [facility] Comment on above: Please Note: New Mitali t Units and Gender Specific Reference Ranges. For more information see Policy Stat Procedure [place] High Sensitivity Troponin (TNIH) and attachments. Platelets bldOrdered By: Dr. Garland on 03-02-2022 Platelets (Bld) [#/Vol] 117 10*3/uL 150-450 [facility] Serum or plasma calcium jamel urement (mass/volume)Ordered By: Dr. Garland on 03-02-2022 Calcium [Mass/Vol] 8.5 mg/dL 8.5-10.1 [facility] Serum or plasma creatinine m easurement (mass/volume)Ordered By: Dr. Garland on 03-02-2022 Creatinine [Mass/Vol] 2.24 mg/dL 0.70-1.30 [facility] Comment on above: The validity of the calculated GFR & GFRAA in patients over 70 years has not been determined. Clinical correlation is essential. Serum or plasma urea nitroge n measurement (mass/volume)Ordered By: Dr. Garland on 03-02-2022 Urea nitrogen [Mass/Vol] 44 mg/dL 7-18 [facility] Thin prep Papanicolaou smear with manual screeningOrdered By: Dr. Garland on 03-02-2022 Thin prep Papanicolaou smear with manual screening 6 5-15 [facility] Basophil percentageOrdered B y: Dr. Carrasco on 02-25-2022 Chloride [Moles/Vol] 107 mmol/L 98-107 [facility] Glucose [Mass/Vol] 219 mg/dL 74-106 [facility] Comment on above: Glucose result great er than or equal to 200 mg/dLsuggests DIABETES MELLITUS per A.D.A. criteria. Potassium [Moles/Vol] 4.2 mmol/L 3.5-5.1 [facility] Sodium [Moles/Vol] 143 mmol/L 136-145 [facility] WBC (Bld) [#/Vol] 5.0 10*3/uL 4.4-11.0 [facility] Blood erythrocytes count (nu mber/volume)Ordered By: Dr. Carrasco on 02-25-2022 RBC (Bld) [#/Vol] 3.27 10*6/uL 4.6-6.2 [facility] Blood hemoglobin measurement (mass/volume)Ordered By: Dr. Carrasco on 02-25-2022 Hemoglobin (Bld) [Mass/Vol] 9.9 g/dL 13.0-16.5 [facility] Blood manual differential co mment interpretation (narrative result)Ordered By: Dr. Carrasco on 02-25-2022 Manual differential comment Alvin (Bld) [Interp] See comment [facility] Comment on above: THROMBOCYTOPENIA MOD . DECREASEDANISOCYTOSIS RARE Blood platelet mean volumeOr dered By: Dr. Carrasco on 02-25-2022 Platelet mean volume (Bld) [Entitic vol] 10.3 fL 6.2-12.0 [facility] Determination of erythrocyte mean corpuscular volume (MCV)Ordered By: Dr. Carrasco on 02-25-2022 MCV (RBC) [Entitic vol] 103.7 fL 80-94 [facility] Hematocrit Auto (Bld) [Volum e fraction]Ordered By: Dr. Carrasco on 02-25-2022 Hematocrit (Bld) [Volume fraction] 33.9 % 40-54 [facility] Hemoglobin in reticulocytes (mass per reticulocyte)Ordered By: Dr. Carrasco on 02-25-2022 Hemoglobin (Reticulocytes) [Entitic mass] 27.9 pg 30-35 [facility] Iron measurement (mass/mass) Ordered By: Dr. Carrasco on 02-25-2022 Iron (Unsp spec) [Mass/Mass] 37 ug/dL 65-175 [facility] - Chemistry and C hemistry - challengeOrdered By: Dr. Carrasco on 02-25-2022 CO2 [Moles/Vol] 29.0 mmol/L 21.0-32.0 [facility] Urea nitrogen/Creatinine [Mass ratio] 20.0 mg/mg 10-20 [facility] - Hematology and Cell countsOrdered By: Dr. Carrasco on 02-25-2022 Erythrocyte distribution width (RBC) [Entitic vol] 72.1 fL 35.1-43.9 [facility] Erythrocyte distribution width (RBC) [Ratio] 19.0 % 11.6-14.6 [facility] MCH (RBC) [Entitic mass] 30.3 pg 27.0-32.0 [facility] MCHC Auto (RBC) [Mass/Vol]Or dered By: Dr. Carrasco on 02-25-2022 MCHC (RBC) [Mass/Vol] 29.2 g/dL 32-36 [facility] No Panel InformationOrdered By: Dr. Carrasco on 02-25-2022 Estimated GFR (MDRD) Amer 33 mL/min >60 [facility] Comment on above: GFR Calc Estimated GFR (MDRD) Non-Af Amer 27 mL/min >60 [facility] Comment on above: Non- GFR Calc Immature Platelet Fraction 5.5 % 1.0-7.9 [facility] Comment on above: Low PLT + Low IPF kinney ggest a bone marrow production disorderLow PLT + high IPF suggests peripheral destruction(e.g.ITP, TTP, HIT, DIC, autoimmune) or bone marrow recoveryTrending of serial IPF measurements is recommended when evaluating for bone marrow responesValue above normal range indicates an increase in RBC cellular response from bone marrow. Immature Reticulocyte Fraction 18.90 % 3.00-15.90 [facility] Reticulocyte Count 4.10 % 0.5-1.5 [facility] Total Iron Binding Capacity 280 ug/dL 250-450 [facility] Platelets bldOrdered By: Dr. Carrasco on 02-25-2022 Platelets (Bld) [#/Vol] 86 10*3/uL 150-450 [facility] Serum or plasma calcium jamel urement (mass/volume)Ordered By: Dr. Carrasco on 02-25-2022 Calcium [Mass/Vol] 8.2 mg/dL 8.5-10.1 [facility] Serum or plasma creatinine m easurement (mass/volume)Ordered By: Dr. Carrasco on 02-25-2022 Creatinine [Mass/Vol] 2.50 mg/dL 0.70-1.30 [facility] Comment on above: The validity of the calculated GFR & GFRAA in patients over 70 years has not been determined. Clinical correlation is essential. Serum or plasma ferritin ahmet surement (mass/volume)Ordered By: Dr. Carrasco on 02-25-2022 Ferritin [Mass/Vol] 232 ng/mL 26-388 [facility] Serum or plasma urea nitroge n measurement (mass/volume)Ordered By: Dr. Carrasco on 02-25-2022 Urea nitrogen [Mass/Vol] 50 mg/dL 7-18 [facility] Thin prep Papanicolaou smear with manual screeningOrdered By: Dr. Carrasco on 02-25-2022 Thin prep Papanicolaou smear with manual screening 7 5-15 [facility] Culture, urineOrdered By: Dr Truong Carrasco on 01-28-2022 Bacteria identified Cx Nom (U) Culture exhibits no growth. [facility] Basophil percentageOrdered B y: Dr. Carrasco on 01-25-2022 Basophil percentage 0-5 SEEN /hpf 0-5 [facility] Bilirubin Test strip Ql (U)O rdered By: Dr. Carrasco on 01-25-2022 Bilirubin Ql (U) Negative Negative [facility] Ketones Test strip Ql (U)Ord ered By: Dr. Carrasco on 01-25-2022 Ketones Ql (U) Negative Negative [facility] Mucus LM Ql (Urine sed)Order ed By: Dr. Carrasco on 01-25-2022 Mucus Ql (Urine sed) 0 SEEN /hpf [facility] Nitrite Test strip Ql (U)Ord ered By: Dr. Carrasco on 01-25-2022 Nitrite Ql (U) Negative Negative [facility] Protein Test strip Ql (U)Ord ered By: Dr. Carrasco on 01-25-2022 Protein Ql (U) 30 mg/dl Negative [facility] Squamous epithelial cells de tection in urine sediment by light microscopyOrdered By: Dr. Carrasco on 01-25-2022 Epithelial cells.squamous LM Ql (Urine sed) 0 SEEN /hpf 0-5 [facility] Urine blood detectionOrdered By: Dr. Carrasco on 01-25-2022 RBC Ql (U) 250 /ul Negative [facility] RBC Ql (U) 10-25 SEEN /hpf 0-5 [facility] Urine clarityOrdered By: Dr. Carrasco on 01-25-2022 Clarity (U) Clear Clear [facility] Urine color determinationOrd ered By: Dr. Carrasco on 01-25-2022 Color (U) Yellow Yellow [facility] Urine glucose detectionOrder ed By: Dr. Carrasco on 01-25-2022 Glucose Ql (U) Normal mg/dl Normal [facility] Urine leukocyte esterase det ection by dipstickOrdered By: Dr. Carrasco on 01-25-2022 Leukocyte esterase Test strip Ql (U) Negative Negative [facility] Urine pHOrdered By: Dr. Connie leon on 01-25-2022 pH (U) 5.0 [pH] 5.0 - 8.0 [facility] Urine sediment bacteria coun t by microscopy (number/high power field)Ordered By: Dr. Carrasco on 01-25-2022 Bacteria LM.HPF (Urine sed) [#/Area] 0 /[HPF] None Seen [facility] Urine specific gravity measu rementOrdered By: Dr. Carrasco on 01-25-2022 Specific gravity (U) [Rel density] 1.015 1.002-1.030 [facility] Urobilinogen Auto test strip Ql (U)Ordered By: Dr. Carrasco on 01-25-2022 Urobilinogen Ql (U) Normal mg/dl Normal [facility] Basophil percentageOrdered B y: Sherry Ahn on 01-21-2022 Bilirubin [Mass/Vol] 0.50 mg/dL 0.20-1.00 [facility] Comment on above: For patients on eltr ombopag therapy, use of Dimension [place] TBIL is not recommended. Chloride [Moles/Vol] 103 mmol/L 98-107 [facility] Glucose [Mass/Vol] 111 mg/dL 74-106 [facility] Comment on above: Fasting Glucose resu lt from 100 to 125 mg/dL suggests IMPAIRED HOMEOSTASIS per A.D.A. criteria. Potassium [Moles/Vol] 3.7 mmol/L 3.5-5.1 [facility] Protein [Mass/Vol] 6.8 g/dL 6.4-8.2 [facility] Sodium [Moles/Vol] 140 mmol/L 136-145 [facility] Laboratory - Chemistry and C hemistry - challengeOrdered By: Sherry Ahn on 01-21-2022 ALP [Catalytic activity/Vol] 155 U/L 45-117 [facility] ALT [Catalytic activity/Vol] 18 U/L 16-61 [facility] CO2 [Moles/Vol] 29.0 mmol/L 21.0-32.0 [facility] Globulin (S) [Mass/Vol] 4.3 g/dL 2.2-4.2 [facility] Urea nitrogen/Creatinine [Mass ratio] 12.2 mg/mg 10-20 [facility] No Panel InformationOrdered By: Sherry Ahn on 01-21-2022 Estimated GFR (MDRD) Amer 27 mL/min >60 [facility] Comment on above: GFR Calc Estimated GFR (MDRD) Non-Af Amer 23 mL/min >60 [facility] Comment on above: Non- GFR Calc Serum or plasma albumin jamel urement (mass/volume)Ordered By: Sherry Ahn on 01-21-2022 Albumin [Mass/Vol] 2.5 g/dL 3.2-5.0 [facility] Serum or plasma albumin/glob ulin mass ratioOrdered By: Sherry Ahn on 01-21-2022 Albumin/Globulin [Mass ratio] 0.6 {ratio} 0.9-2.4 [facility] Serum or plasma calcium jamel urement (mass/volume)Ordered By: Sherry Ahn on 01-21-2022 Calcium [Mass/Vol] 8.2 mg/dL 8.5-10.1 [facility] Serum or plasma creatinine m easurement (mass/volume)Ordered By: Sherry Ahn on 01-21-2022 Creatinine [Mass/Vol] 2.94 mg/dL 0.70-1.30 [facility] Comment on above: The validity of the calculated GFR & GFRAA in patients over 70 years has not been determined. Clinical correlation is essential. Serum or plasma urea nitroge n measurement (mass/volume)Ordered By: Sherry Ahn on 01-21-2022 Urea nitrogen [Mass/Vol] 36 mg/dL 7-18 [facility] Thin prep Papanicolaou smear with manual screeningOrdered By: Sherry Ahn on 01-21-2022 Thin prep Papanicolaou smear with manual screening 22 U/L 15-37 [facility] Thin prep Papanicolaou smear with manual screening 8 5-15 [facility] Whole blood hemoglobin A1c/t otal hemoglobin ratio (mass fraction)Ordered By: Sherry Ahn on 01-21-2022 HbA1c (Bld) [Mass fraction] 5.9 % 3.8-5.6 [facility] Comment on above: Normal < 5.7 % Predi abetic 5.7 - 6.4 % Diabetic >or= 6.5 % Please note range changes. Absolute lymphocyte countOrd ered By: Dr. Carrasco on 01-06-2022 Lymphocytes Auto (Unsp spec) [#/Vol] 2.01 10*3/uL 0.83-4.51 [facility] Basophil percentageOrdered B y: Dr. Carrasco on 01-06-2022 Basophils/100 WBC (Bld) 0.2 % 0-1 [facility] Eosinophils/100 WBC (Bld) 0.2 % 0-5 [facility] Neutrophils (Bld) [#/Vol] 4.1 10*3/uL 2.0-7.7 [facility] Neutrophils/100 WBC (Bld) 61.0 % 47-70 [facility] WBC (Bld) [#/Vol] 6.6 10*3/uL 4.4-11.0 [facility] Basophil percentageOrdered B y: Tc Subramanian on 01-06-2022 Chloride [Moles/Vol] 101 mmol/L 98-107 [facility] Glucose [Mass/Vol] 110 mg/dL 74-106 [facility] Comment on above: Fasting Glucose resu lt from 100 to 125 mg/dL suggests IMPAIRED HOMEOSTASIS per A.D.A. criteria. Potassium [Moles/Vol] 5.0 mmol/L 3.5-5.1 [facility] Sodium [Moles/Vol] 135 mmol/L 136-145 [facility] Blood erythrocytes count (nu mber/volume)Ordered By: Dr. Carrasco on 01-06-2022 RBC (Bld) [#/Vol] 3.62 10*6/uL 4.6-6.2 [facility] Blood hemoglobin measurement (mass/volume)Ordered By: Dr. Carrasco on 01-06-2022 Hemoglobin (Bld) [Mass/Vol] 10.3 g/dL 13.0-16.5 [facility] Blood lymphocytes/100 leukoc ytesOrdered By: Dr. Carrasco on 01-06-2022 Lymphocytes/100 WBC (Bld) 30.4 % 19-41 [facility] Blood monocytes/100 leukocyt esOrdered By: Dr. Carrasco on 01-06-2022 Monocytes/100 WBC (Bld) 7.7 % 0-10 [facility] Blood platelet mean volumeOr dered By: Dr. Carracso on 01-06-2022 Platelet mean volume (Bld) [Entitic vol] 9.1 fL 6.2-12.0 [facility] Determination of erythrocyte mean corpuscular volume (MCV)Ordered By: Dr. Carrasco on 01-06-2022 MCV (RBC) [Entitic vol] 90.6 fL 80-94 [facility] Hematocrit Auto (Bld) [Volum e fraction]Ordered By: Dr. Carrasco on 01-06-2022 Hematocrit (Bld) [Volume fraction] 32.8 % 40-54 [facility] - Chemistry and C hemistry - challengeOrdered By: Tc Subramanian on 01-06-2022 CO2 [Moles/Vol] 28.0 mmol/L 21.0-32.0 [facility] Urea nitrogen/Creatinine [Mass ratio] 17.6 mg/mg 10-20 [facility] - Hematology and Cell countsOrdered By: Dr. Carrasco on 01-06-2022 Erythrocyte distribution width (RBC) [Entitic vol] 47.0 fL 35.1-43.9 [facility] Erythrocyte distribution width (RBC) [Ratio] 14.4 % 11.6-14.6 [facility] Immature granulocytes/100 WBC (Bld) 0.500 % 0.0-0.9 [facility] Comment on above: IG% - Immature Granu locytes (promyelocytes, myelocytes and metamyelocytes) > 1% indicates that a LEFT SHIFT is Present. MCH (RBC) [Entitic mass] 28.5 pg 27.0-32.0 [facility] Nucleated RBC/100 WBC (Bld) [Ratio] 0.6 % 0-5 [facility] MCHC Auto (RBC) [Mass/Vol]Or dered By: Dr. Carrasco on 01-06-2022 MCHC (RBC) [Mass/Vol] 31.4 g/dL 32-36 [facility] No Panel InformationOrdered By: Tc Subramanian on 01-06-2022 Estimated GFR (MDRD) Amer 32 mL/min >60 [facility] Comment on above: GFR Calc Estimated GFR (MDRD) Non-Af Amer 26 mL/min >60 [facility] Comment on above: Non- GFR Calc Platelets bldOrdered By: Dr. Carrasco on 01-06-2022 Platelets (Bld) [#/Vol] 187 10*3/uL 150-450 [facility] Serum or plasma calcium jamel urement (mass/volume)Ordered By: Tc Subramanian on 01-06-2022 Calcium [Mass/Vol] 8.3 mg/dL 8.5-10.1 [facility] Serum or plasma creatinine m easurement (mass/volume)Ordered By: Tc Subramanian on 01-06-2022 Creatinine [Mass/Vol] 2.56 mg/dL 0.70-1.30 [facility] Comment on above: The validity of the calculated GFR & GFRAA in patients over 70 years has not been determined. Clinical correlation is essential. Serum or plasma urea nitroge n measurement (mass/volume)Ordered By: Tc Subramanian on 01-06-2022 Urea nitrogen [Mass/Vol] 45 mg/dL 7-18 [facility] Thin prep Papanicolaou smear with manual screeningOrdered By: Tc Subramanian on 01-06-2022 Thin prep Papanicolaou smear with manual screening 6 5-15 [facility] Absolute lymphocyte countOrd ered By: Dr. Asencio on 12-28-2021 Lymphocytes Auto (Unsp spec) [#/Vol] 2.01 10*3/uL 0.83-4.51 [facility] Basophil percentageOrdered B y: Dr. Asencio on 12-28-2021 Basophil percentage 0-5 SEEN /hpf 0-5 [facility] Basophils/100 WBC (Bld) 0.2 % 0-1 [facility] Bilirubin [Mass/Vol] 0.40 mg/dL 0.20-1.00 [facility] Comment on above: For patients on eltr ombopag therapy, use of Dimension [place] TBIL is not recommended. Chloride [Moles/Vol] 101 mmol/L 98-107 [facility] Eosinophils/100 WBC (Bld) 0.0 % 0-5 [facility] Glucose [Mass/Vol] 166 mg/dL 74-106 [facility] Comment on above: Fasting Glucose resu lt greater than or equal to 126 mg/dL suggests DIABETES MELLITUS per A.D.A. criteria. Neutrophils (Bld) [#/Vol] 3.4 10*3/uL 2.0-7.7 [facility] Neutrophils/100 WBC (Bld) 59.2 % 47-70 [facility] Potassium [Moles/Vol] 4.4 mmol/L 3.5-5.1 [facility] Protein [Mass/Vol] 7.3 g/dL 6.4-8.2 [facility] Sodium [Moles/Vol] 134 mmol/L 136-145 [facility] WBC (Bld) [#/Vol] 5.7 10*3/uL 4.4-11.0 [facility] Bilirubin Test strip Ql (U)O rdered By: Dr. Asencio on 12-28-2021 Bilirubin Ql (U) Negative Negative [facility] Blood erythrocytes count (nu mber/volume)Ordered By: Dr. Asencio on 12-28-2021 RBC (Bld) [#/Vol] 3.95 10*6/uL 4.6-6.2 [facility] Blood hemoglobin measurement (mass/volume)Ordered By: Dr. Asencio on 12-28-2021 Hemoglobin (Bld) [Mass/Vol] 11.1 g/dL 13.0-16.5 [facility] Blood lymphocytes/100 leukoc ytesOrdered By: Dr. Asencio on 12-28-2021 Lymphocytes/100 WBC (Bld) 35.1 % 19-41 [facility] Blood monocytes/100 leukocyt esOrdered By: Dr. Asencio on 12-28-2021 Monocytes/100 WBC (Bld) 5.2 % 0-10 [facility] Blood platelet mean volumeOr dered By: Dr. Asencio on 12-28-2021 Platelet mean volume (Bld) [Entitic vol] 9.8 fL 6.2-12.0 [facility] Determination of erythrocyte mean corpuscular volume (MCV)Ordered By: Dr. Asencio on 12-28-2021 MCV (RBC) [Entitic vol] 86.3 fL 80-94 [facility] Hematocrit Auto (Bld) [Volum e fraction]Ordered By: Dr. Asencio on 12-28-2021 Hematocrit (Bld) [Volume fraction] 34.1 % 40-54 [facility] Ketones Test strip Ql (U)Ord ered By: Dr. Asencio on 12-28-2021 Ketones Ql (U) Negative Negative [facility] - Chemistry and C hemistry - challengeOrdered By: Dr. Asencio on 12-28-2021 ALP [Catalytic activity/Vol] 73 U/L 45-117 [facility] ALT [Catalytic activity/Vol] 18 U/L 16-61 [facility] CO2 [Moles/Vol] 25.0 mmol/L 21.0-32.0 [facility] Globulin (S) [Mass/Vol] 4.5 g/dL 2.2-4.2 [facility] Urea nitrogen/Creatinine [Mass ratio] 12.8 mg/mg 10-20 [facility] - Hematology and Cell countsOrdered By: Dr. Asencio on 12-28-2021 Erythrocyte distribution width (RBC) [Entitic vol] 43.4 fL 35.1-43.9 [facility] Erythrocyte distribution width (RBC) [Ratio] 13.7 % 11.6-14.6 [facility] Immature granulocytes/100 WBC (Bld) 0.300 % 0.0-0.9 [facility] Comment on above: IG% - Immature Granu locytes (promyelocytes, myelocytes and metamyelocytes) > 1% indicates that a LEFT SHIFT is Present. MCH (RBC) [Entitic mass] 28.1 pg 27.0-32.0 [facility] Nucleated RBC/100 WBC (Bld) [Ratio] 0 % 0-5 [facility] MCHC Auto (RBC) [Mass/Vol]Or dered By: Dr. Asencio on 12-28-2021 MCHC (RBC) [Mass/Vol] 32.6 g/dL 32-36 [facility] Mucus LM Ql (Urine sed)Order ed By: Dr. Asencio on 12-28-2021 Mucus Ql (Urine sed) 0 SEEN /hpf [facility] Nitrite Test strip Ql (U)Ord ered By: Dr. Asencio on 12-28-2021 Nitrite Ql (U) Negative Negative [facility] No Panel InformationOrdered By: Dr. Asencio on 12-28-2021 Estimated Creatinine Clearance Calc 27.92 ml/min [facility] Estimated GFR (MDRD) Amer 38 mL/min >60 [facility] Comment on above: GFR Calc Estimated GFR (MDRD) Non-Af Amer 32 mL/min >60 [facility] Comment on above: Non- GFR Calc Platelets bldOrdered By: Dr. Asencio on 12-28-2021 Platelets (Bld) [#/Vol] 109 10*3/uL 150-450 [facility] Protein Test strip Ql (U)Ord ered By: Dr. Asencio on 12-28-2021 Protein Ql (U) 100 mg/dl Negative [facility] Serum or plasma albumin jamel urement (mass/volume)Ordered By: Dr. Asencio on 12-28-2021 Albumin [Mass/Vol] 2.8 g/dL 3.2-5.0 [facility] Serum or plasma albumin/glob ulin mass ratioOrdered By: Dr. Asencio on 12-28-2021 Albumin/Globulin [Mass ratio] 0.6 {ratio} 0.9-2.4 [facility] Serum or plasma calcium jamel urement (mass/volume)Ordered By: Dr. Asencio on 12-28-2021 Calcium [Mass/Vol] 8.8 mg/dL 8.5-10.1 [facility] Serum or plasma creatinine m easurement (mass/volume)Ordered By: Dr. Asencio on 12-28-2021 Creatinine [Mass/Vol] 2.19 mg/dL 0.70-1.30 [facility] Comment on above: The validity of the calculated GFR & GFRAA in patients over 70 years has not been determined. Clinical correlation is essential. Serum or plasma urea nitroge n measurement (mass/volume)Ordered By: Dr. Asencio on 12-28-2021 Urea nitrogen [Mass/Vol] 28 mg/dL 7-18 [facility] Squamous epithelial cells de tection in urine sediment by light microscopyOrdered By: Dr. Asencio on 12-28-2021 Epithelial cells.squamous LM Ql (Urine sed) 0 SEEN /hpf 0-5 [facility] Thin prep Papanicolaou smear with manual screeningOrdered By: Dr. Asencio on 12-28-2021 Thin prep Papanicolaou smear with manual screening 21 U/L 15-37 [facility] Thin prep Papanicolaou smear with manual screening 8 5-15 [facility] Urine blood detectionOrdered By: Dr. Asencio on 12-28-2021 RBC Ql (U) 250 /ul Negative [facility] RBC Ql (U) 25-50 SEEN /hpf 0-5 [facility] Urine clarityOrdered By: Dr. Asencio on 12-28-2021 Clarity (U) Cloudy Clear [facility] Urine color determinationOrd ered By: Dr. Asencio on 12-28-2021 Color (U) Red Yellow [facility] Urine glucose detectionOrder ed By: Dr. Asencio on 12-28-2021 Glucose Ql (U) 50 mg/dl Normal [facility] Urine leukocyte esterase det ection by dipstickOrdered By: Dr. Asencoi on 12-28-2021 Leukocyte esterase Test strip Ql (U) 25 /ul Negative [facility] Urine pHOrdered By: Dr. Anastasia forbes on 12-28-2021 pH (U) 6.5 [pH] 5.0 - 8.0 [facility] Urine sediment bacteria coun t by microscopy (number/high power field)Ordered By: Dr. Asencio on 12-28-2021 Bacteria LM.HPF (Urine sed) [#/Area] 0 /[HPF] None Seen [facility] Urine specific gravity measu rementOrdered By: Dr. Asencio on 12-28-2021 Specific gravity (U) [Rel density] 1.015 1.002-1.030 [facility] Urobilinogen Auto test strip Ql (U)Ordered By: Dr. Asencio on 12-28-2021 Urobilinogen Ql (U) Normal mg/dl Normal [facility] Absolute lymphocyte countOrd ered By: Dr. Carrasco on 12-22-2021 Lymphocytes Auto (Unsp spec) [#/Vol] 3.71 10*3/uL 0.83-4.51 [facility] Basophil percentageOrdered B y: Dr. Carrasco on 12-22-2021 Basophils/100 WBC (Bld) 0.3 % 0-1 [facility] Eosinophils/100 WBC (Bld) 0.2 % 0-5 [facility] Neutrophils (Bld) [#/Vol] 2.2 10*3/uL 2.0-7.7 [facility] Neutrophils/100 WBC (Bld) 34.6 % 47-70 [facility] WBC (Bld) [#/Vol] 6.4 10*3/uL 4.4-11.0 [facility] Blood erythrocytes count (nu mber/volume)Ordered By: Dr. Carrasco on 12-22-2021 RBC (Bld) [#/Vol] 4.25 10*6/uL 4.6-6.2 [facility] Blood hemoglobin measurement (mass/volume)Ordered By: Dr. Carrasco on 12-22-2021 Hemoglobin (Bld) [Mass/Vol] 12.3 g/dL 13.0-16.5 [facility] Blood lymphocytes/100 leukoc ytesOrdered By: Dr. Carrasco on 12-22-2021 Lymphocytes/100 WBC (Bld) 58.1 % 19-41 [facility] Blood monocytes/100 leukocyt esOrdered By: Dr. Carrasco on 12-22-2021 Monocytes/100 WBC (Bld) 6.6 % 0-10 [facility] Blood platelet mean volumeOr dered By: Dr. Carrasco on 12-22-2021 Platelet mean volume (Bld) [Entitic vol] 9.2 fL 6.2-12.0 [facility] Determination of erythrocyte mean corpuscular volume (MCV)Ordered By: Dr. Carrasco on 12-22-2021 MCV (RBC) [Entitic vol] 90.1 fL 80-94 [facility] Hematocrit Auto (Bld) [Volum e fraction]Ordered By: Dr. Carrasco on 12-22-2021 Hematocrit (Bld) [Volume fraction] 38.3 % 40-54 [facility] - Hematology and Cell countsOrdered By: Dr. Carrasco on 12-22-2021 Erythrocyte distribution width (RBC) [Entitic vol] 47.0 fL 35.1-43.9 [facility] Erythrocyte distribution width (RBC) [Ratio] 14.2 % 11.6-14.6 [facility] Immature granulocytes/100 WBC (Bld) 0.200 % 0.0-0.9 [facility] Comment on above: IG% - Immature Granu locytes (promyelocytes, myelocytes and metamyelocytes) > 1% indicates that a LEFT SHIFT is Present. MCH (RBC) [Entitic mass] 28.9 pg 27.0-32.0 [facility] Nucleated RBC/100 WBC (Bld) [Ratio] 0 % 0-5 [facility] MCHC Auto (RBC) [Mass/Vol]Or dered By: Dr. Carrasco on 12-22-2021 MCHC (RBC) [Mass/Vol] 32.1 g/dL 32-36 [facility] Platelets bldOrdered By: Dr. Carrasco on 12-22-2021 Platelets (Bld) [#/Vol] 137 10*3/uL 150-450 [facility] Basophil percentageon 2021 Bilirubin [Mass/Vol] 0.40 mg/dL 0.20-1.00 [facility] Work Phone: Comment on above: For patients on eltr ombopag therapy, use of Dimension [place] TBIL is not recommended. Chloride [Moles/Vol] 99 mmol/L 98-107 [facility] Work Phone: Glucose [Mass/Vol] 172 mg/dL 74-106 [facility] Work Phone: Comment on above: Fasting Glucose resu lt greater than or equal to 126 mg/dL suggests DIABETES MELLITUS per A.D.A. criteria. Potassium [Moles/Vol] 4.5 mmol/L 3.5-5.1 [facility] Work Phone: Protein [Mass/Vol] 7.2 g/dL 6.4-8.2 [facility] Work Phone: Sodium [Moles/Vol] 133 mmol/L 136-145 [facility] Work Phone: WBC (Bld) [#/Vol] 6.3 10*3/uL 4.4-11.0 [facility] Work Phone: Blood erythrocytes count (nu mber/volume)on 09-23-2021 RBC (Bld) [#/Vol] 4.97 10*6/uL 4.6-6.2 [facility] Work Phone: Blood hemoglobin measurement (mass/volume)on 09-23-2021 Hemoglobin (Bld) [Mass/Vol] 15.3 g/dL 13.0-16.5 [facility] Work Phone: Blood platelet mean volumeon 09-23-2021 Platelet mean volume (Bld) [Entitic vol] 8.8 fL 6.2-12.0 [facility] Work Phone: Determination of erythrocyte mean corpuscular volume (MCV)on 09-23-2021 MCV (RBC) [Entitic vol] 93.2 fL 80-94 [facility] Work Phone: Hematocrit Auto (Bld) [Volum e fraction]on 09-23-2021 Hematocrit (Bld) [Volume fraction] 46.3 % 40-54 [facility] Work Phone: Laboratory - Chemistry and C hemistry - challengeon 09-23-2021 ALP [Catalytic activity/Vol] 71 U/L 45-117 [facility] Work Phone: ALT [Catalytic activity/Vol] 29 U/L 16-61 [facility] Work Phone: CO2 [Moles/Vol] 27.0 mmol/L 21.0-32.0 [facility] Work Phone: Globulin (S) [Mass/Vol] 3.8 g/dL 2.2-4.2 [facility] Work Phone: Urea nitrogen/Creatinine [Mass ratio] 15.0 mg/mg 10-20 [facility] Work Phone: Laboratory - Hematology and Cell countson 09-23-2021 Erythrocyte distribution width (RBC) [Entitic vol] 44.2 fL 35.1-43.9 [facility] Work Phone: Erythrocyte distribution width (RBC) [Ratio] 12.9 % 11.6-14.6 [facility] Work Phone: MCH (RBC) [Entitic mass] 30.8 pg 27.0-32.0 [facility] Work Phone: MCHC Auto (RBC) [Mass/Vol]on 09-23-2021 MCHC (RBC) [Mass/Vol] 33.0 g/dL 32-36 [facility] Work Phone: No Panel Informationon 09-23 Estimated GFR (MDRD) Amer 82 mL/min >60 [facility] Work Phone: Comment on above: GFR Calc Estimated GFR (MDRD) Non-Af Amer 68 mL/min >60 [facility] Work Phone: Comment on above: Non- GFR Calc Prostate Specific Antigen Screen 0.43 ng/mL 0.00-4.00 [facility] Work Phone: Comment on above: This test was perfor med using the TPSA assay method [facility]. Values obtained with differentassay methods cannot be used interchangably.When changing PSA assays in the course of monitoring apatient, additional sequential testing should be carriedout to confirm baseline values. Platelets bldon 08-17-2022 Platelets (Bld) [#/Vol] 106 10*3/uL 150-450 [facility] Work Phone: Serum or plasma albumin jamel urement (mass/volume)on 09-23-2021 Albumin [Mass/Vol] 3.4 g/dL 3.2-5.0 [facility] Work Phone: Serum or plasma albumin/glob ulin mass ratioon 09-23-2021 Albumin/Globulin [Mass ratio] 0.9 {ratio} 0.9-2.4 [facility] Work Phone: Serum or plasma calcium jamel urement (mass/volume)on 09-23-2021 Calcium [Mass/Vol] 8.4 mg/dL 8.5-10.1 [facility] Work Phone: Serum or plasma creatinine m easurement (mass/volume)on 09-23-2021 Creatinine [Mass/Vol] 1.13 mg/dL 0.70-1.30 [facility] Work Phone: Comment on above: The validity of the calculated GFR & GFRAA in patients over 70 years has not been determined. Clinical correlation is essential. Serum or plasma urea nitroge n measurement (mass/volume)on 09-23-2021 Urea nitrogen [Mass/Vol] 17 mg/dL 7-18 [facility] Work Phone: Thin prep Papanicolaou smear with manual screeningon 09-23-2021 Thin prep Papanicolaou smear with manual screening 26 U/L 15-37 [facility] Work Phone: Thin prep Papanicolaou smear with manual screening 7 5-15 [facility] Work Phone: Culture, urine Bacteria identified Cx Nom (U) Culture exhibits no growth. [facility] Work Phone: Vital Signs Date Time Vital Sign Value Performing Clinician Facility 10-19-2024 07:47-0400 Body temperature 97.9 [degF] [facility] Work Phone: [facility] 10-19-2024 07:47-0400 Diastolic blood pressure 75 mm[Hg] [facility] Work Phone: [facility] 10-19-2024 07:47-0400 Heart rate 60 /min [facility] Work Phone: [facility] 10-19-2024 07:47-0400 Respiratory rate 16 /min [facility] Work Phone: [facility] 10-19-2024 07:47-0400 SaO2% (BldA) [Mass fraction] 97 % [facility] Work Phone: [facility] 10-19-2024 07:47-0400 Systolic blood pressure 130 mm[Hg] [facility] Work Phone: [facility] 10-16-2024 09:51-0400 Body temperature 98.4 [degF] Luigi Banks MD Work Phone: [facility] 10-16-2024 09:51-0400 Diastolic blood pressure 69 mm[Hg] Luigi Banks MD Work Phone: [facility] 10-16-2024 09:51-0400 Heart rate 60 /min Luigi Banks MD Work Phone: [facility] 10-16-2024 09:51-0400 Respiratory rate 16 /min Luigi Banks MD Work Phone: [facility] 10-16-2024 09:51-0400 SaO2% (BldA) [Mass fraction] 99 % Luigi Banks MD Work Phone: [facility] Comment on above: RA 10-16-2024 09:51-0400 Systolic blood pressure 115 mm[Hg] Luigi Banks MD Work Phone: [facility] 10-15-2024 08:45-0400 Body mass index (BMI) [Ratio] 23.66 kg/m2 [facility] Work Phone: [facility] 10-15-2024 08:45-0400 Body temperature 98.2 [degF] [facility] Work Phone: [facility] 10-15-2024 08:45-0400 Body weight 66.22 kg [facility] Work Phone: [facility] 10-15-2024 08:45-0400 Diastolic blood pressure 72 mm[Hg] [facility] Work Phone: [facility] 10-15-2024 08:45-0400 Heart rate 60 /min [facility] Work Phone: [facility] 10-15-2024 08:45-0400 Respiratory rate 18 /min [facility] Work Phone: [facility] 10-15-2024 08:45-0400 SaO2% (BldA) [Mass fraction] 95 % [facility] Work Phone: [facility] 10-15-2024 08:45-0400 Systolic blood pressure 125 mm[Hg] [facility] Work Phone: [facility] 10-12-2024 10:20-0400 Body mass index (BMI) [Ratio] 23.82 kg/m2 Bobkathy Otero Work Phone: [facility] 10-12-2024 10:20-0400 Body temperature 97.59 [degF] Bobkathy Otero Work Phone: [facility] 10-12-2024 10:20-0400 Body weight 66.68 kg Bobkathy Otero Work Phone: [facility] 10-12-2024 10:20-0400 Diastolic blood pressure 78 mm[Hg] Bob Otero Work Phone: [facility] 10-12-2024 10:20-0400 Heart rate 58 /min Bobkathy Otero Work Phone: [facility] 10-12-2024 10:20-0400 SaO2% (BldA) [Mass fraction] 98 % Bob Otero Work Phone: [facility] 10-12-2024 10:20-0400 Systolic blood pressure 158 mm[Hg] Bob Otero Work Phone: [facility] 10-09-2024 09:54-0400 Body temperature 97.59 [degF] Luigi Banks MD Work Phone: [facility] 10-09-2024 09:54-0400 Diastolic blood pressure 63 mm[Hg] Luigi Banks MD Work Phone: [facility] 10-09-2024 09:54-0400 Heart rate 61 /min Luigi Banks MD Work Phone: [facility] 10-09-2024 09:54-0400 SaO2% (BldA) [Mass fraction] 97 % Luigi Banks MD Work Phone: [facility] 10-09-2024 09:54-0400 Systolic blood pressure 105 mm[Hg] Luigi Banks MD Work Phone: [facility] 10-02-2024 10:09-0400 Body temperature 98.2 [degF] Luigi Banks MD Work Phone: [facility] 10-02-2024 10:09-0400 Diastolic blood pressure 74 mm[Hg] Luigi Banks MD Work Phone: [facility] 10-02-2024 10:09-0400 Heart rate 59 /min Luigi Banks MD Work Phone: [facility] 10-02-2024 10:09-0400 Respiratory rate 14 /min Luigi Banks MD Work Phone: [facility] 10-02-2024 10:09-0400 SaO2% (BldA) [Mass fraction] 100 % Luigi Banks MD Work Phone: [facility] 10-02-2024 10:09-0400 Systolic blood pressure 148 mm[Hg] Luigi Banks MD Work Phone: [facility] 09-28-2024 07:30-0400 Body temperature 98.91 [degF] [facility] Work Phone: [facility] 09-28-2024 07:30-0400 Diastolic blood pressure 64 mm[Hg] [facility] Work Phone: [facility] 09-28-2024 07:30-0400 Heart rate 53 /min [facility] Work Phone: [facility] 09-28-2024 07:30-0400 SaO2% (BldA) [Mass fraction] 93 % [facility] Work Phone: [facility] 09-28-2024 07:30-0400 Systolic blood pressure 128 mm[Hg] [facility] Work Phone: [facility] 09-27-2024 10:24-0400 Diastolic blood pressure 63 mm[Hg] [facility] Work Phone: [facility] 09-27-2024 10:24-0400 Heart rate 54 /min [facility] Work Phone: [facility] 09-27-2024 10:24-0400 SaO2% (BldA) [Mass fraction] 92 % [facility] Work Phone: [facility] 09-27-2024 10:24-0400 Systolic blood pressure 125 mm[Hg] [facility] Work Phone: [facility] 09-25-2024 10:20-0400 Body temperature 97.5 [degF] Luigi Banks MD Work Phone: [facility] 09-25-2024 10:20-0400 Diastolic blood pressure 66 mm[Hg] Luigi Banks MD Work Phone: [facility] 09-25-2024 10:20-0400 Heart rate 56 /min Luigi Banks MD Work Phone: [facility] 09-25-2024 10:20-0400 SaO2% (BldA) [Mass fraction] 94 % Luigi Banks MD Work Phone: [facility] 09-25-2024 10:20-0400 Systolic blood pressure 121 mm[Hg] Luigi Banks MD Work Phone: [facility] 09-24-2024 11:00-0400 Body height 167.3 cm [facility] Work Phone: [facility] Comment on above: verified by Iris Diaz 09-24-2024 10:33-0400 Body mass index (BMI) [Ratio] 24.31 kg/m2 [facility] Work Phone: [facility] 09-24-2024 10:33-0400 Body temperature 96.91 [degF] [facility] Work Phone: [facility] 09-24-2024 10:33-0400 Body weight 68.04 kg [facility] Work Phone: [facility] 09-24-2024 10:33-0400 Diastolic blood pressure 74 mm[Hg] [facility] Work Phone: [facility] 09-24-2024 10:33-0400 Heart rate 54 /min [facility] Work Phone: [facility] 09-24-2024 10:33-0400 SaO2% (BldA) [Mass fraction] 94 % [facility] Work Phone: [facility] 09-24-2024 10:33-0400 Systolic blood pressure 146 mm[Hg] [facility] Work Phone: [facility] 09-21-2024 08:24-0400 Body height 167.[address] Padmini Carrasco MD Work Phone: [facility] 09-21-2024 08:24-0400 Body mass index (BMI) [Ratio] 25.8 kg/m2 Dr. Padmini Carrasco MD Work Phone: [facility] 09-21-2024 08:24-0400 Body temperature 96.7 [degF] Dr. Padmini Carrasco MD Work Phone: [facility] 09-21-2024 08:24-0400 Body weight 72.[address] Padmini Carrasco MD Work Phone: [facility] 09-21-2024 08:24-0400 Diastolic blood pressure 95 mm[Hg] Dr. Padmini Carrasco MD Work Phone: [facility] 09-21-2024 08:24-0400 Heart rate 53 /min Dr. Padmini Carrasco MD Work Phone: [facility] 09-21-2024 08:24-0400 Respiratory rate 14 /min Dr. Padmini Carrasco MD Work Phone: [facility] 09-21-2024 08:24-0400 SaO2% (BldA) [Mass fraction] 96 % Dr. Padmini Carrasco MD Work Phone: [facility] 09-21-2024 08:24-0400 Systolic blood pressure 154 mm[Hg] Dr. Padmini Carrasco MD Work Phone: [facility] 09-05-2024 14:11-0400 Body height 169 cm Lakeisha Masci DO Work Phone: [facility] 09-05-2024 14:11-0400 Body mass index (BMI) [Ratio] 24.22 kg/m2 Lakeisha Masci DO Work Phone: [facility] 09-05-2024 14:11-0400 Body temperature 97.7 [degF] Lakeisha Masci DO Work Phone: [facility] 09-05-2024 14:11-0400 Body weight 69.17 kg Lakeisha Masci DO Work Phone: [facility] 09-05-2024 14:11-0400 Diastolic blood pressure 69 mm[Hg] Lakeisha Masci DO Work Phone: [facility] 09-05-2024 14:11-0400 Heart rate 75 /min Lakeisha Masci DO Work Phone: [facility] 09-05-2024 14:11-0400 SaO2% (BldA) [Mass fraction] 93 % Lakeisha Masci DO Work Phone: [facility] 09-05-2024 14:11-0400 Systolic blood pressure 145 mm[Hg] Lakeisha Masci DO Work Phone: [facility] 08-30-2024 08:13-0400 Body height 167.[address] Padmini Carrasco MD Work Phone: [facility] 08-30-2024 08:13-0400 Body mass index (BMI) [Ratio] 24.8 kg/m2 Dr. Padmini Carrasco MD Work Phone: [facility] 08-30-2024 08:13-0400 Body weight 69.[address] Padmini Carrasco MD Work Phone: [facility] 08-30-2024 08:13-0400 Diastolic blood pressure 61 mm[Hg] Dr. Padmini Carrasco MD Work Phone: [facility] 08-30-2024 08:13-0400 Heart rate 54 /min Dr. Padmini Carrasco MD Work Phone: [facility] 08-30-2024 08:13-0400 Respiratory rate 16 /min Dr. Padmini Carrasco MD Work Phone: [facility] 08-30-2024 08:13-0400 SaO2% (BldA) [Mass fraction] 93 % Dr. Padmini Carrasco MD Work Phone: [facility] 08-30-2024 08:13-0400 Systolic blood pressure 99 mm[Hg] Dr. Padmini Carrasco MD Work Phone: [facility] 08-29-2024 13:08-0400 Body mass index (BMI) [Ratio] 25.19 kg/m2 Stacy Gauthier MD Work Phone: [facility] 08-29-2024 13:08-0400 Body weight 70.76 kg Stacy Gauthier MD Work Phone: [facility] 08-16-2024 10:19-0400 Body height 167.6 cm Pst 1 [facility] 08-16-2024 10:19-0400 Body mass index (BMI) [Ratio] 25.26 kg/m2 Pst 1 [facility] 08-16-2024 10:19-0400 Body temperature 96.8 [degF] Pst 1 [facility] 08-16-2024 10:19-0400 Body weight 70.94 kg Pst 1 [facility] 08-16-2024 10:19-0400 Diastolic blood pressure 82 mm[Hg] Pst 1 [facility] 08-16-2024 10:19-0400 Heart rate 53 /min Pst 1 [facility] 08-16-2024 10:19-0400 Respiratory rate 16 /min Pst 1 [facility] 08-16-2024 10:19-0400 SaO2% (BldA) [Mass fraction] 99 % Pst 1 [facility] 08-16-2024 10:19-0400 Systolic blood pressure 138 mm[Hg] Pst 1 [facility] 08-02-2024 14:06-0400 Body height 167.6 cm Stacy Gauthier MD Work Phone: [facility] 08-02-2024 14:06-0400 Body mass index (BMI) [Ratio] 25.19 kg/m2 Stacy Gauthier MD Work Phone: [facility] 08-02-2024 14:06-0400 Body weight 70.76 kg Stacy Gauthier MD Work Phone: [facility] 08-02-2024 14:06-0400 Heart rate 65 /min Stacy Gauthier MD Work Phone: [facility] 08-02-2024 14:06-0400 SaO2% (BldA) [Mass fraction] 91 % Stacy Gauthier MD Work Phone: [facility] 07-26-2024 09:00-0400 Body height 167.6 cm Codey Christianson MD Work Phone: [facility] 07-26-2024 09:00-0400 Body mass index (BMI) [Ratio] 25.3 kg/m2 Codey Christianson MD Work Phone: [facility] 07-26-2024 09:00-0400 Body temperature 97.3 [degF] oCdey Christianson MD Work Phone: [facility] 07-26-2024 09:00-0400 Body weight 71.1 kg Codey Christianson MD Work Phone: [facility] 07-26-2024 09:00-0400 Diastolic blood pressure 67 mm[Hg] Codey Christianson MD Work Phone: [facility] 07-26-2024 09:00-0400 Heart rate 50 /min Codey Christianson MD Work Phone: [facility] Comment on above: md notified 07-26-2024 09:00-0400 Respiratory rate 18 /min Codey Christianson MD Work Phone: [facility] 07-26-2024 09:00-0400 SaO2% (BldA) [Mass fraction] 97 % Codey Christianson MD Work Phone: [facility] 07-26-2024 09:00-0400 Systolic blood pressure 150 mm[Hg] Codey Christianson MD Work Phone: [facility] 06-28-2024 12:15-0400 Body temperature 98.4 [degF] Dr. Padmini Carrasco MD Work Phone: [facility] 06-28-2024 12:15-0400 Diastolic blood pressure 76 mm[Hg] Dr. Padmini Carrasco MD Work Phone: [facility] 06-28-2024 12:15-0400 Heart rate 64 /min Dr. Padmini Carrasco MD Work Phone: [facility] 06-28-2024 12:15-0400 Inhaled oxygen flow rate 2 L/min Dr. Padmini Carrasco MD Work Phone: [facility] 06-28-2024 12:15-0400 Respiratory rate 18 /min Dr. Padmini Carrasco MD Work Phone: [facility] 06-28-2024 12:15-0400 SaO2% (BldA) [Mass fraction] 94 % Dr. Padmini Carrasco MD Work Phone: [facility] 06-28-2024 12:15-0400 Systolic blood pressure 152 mm[Hg] Dr. Padmini Carrasco MD Work Phone: [facility] 06-27-2024 15:48-0400 Body height 167.[address] Padmini Carrasco MD Work Phone: 6(712)370-190628 [place] [address] 06-27-2024 15:48-0400 Body mass index (BMI) [Ratio] 25.6 kg/m2 Dr. Padmini Carrasco MD Work Phone: 2(796)195-044128 [place] [address] 06-27-2024 15:48-0400 Body weight [address] Padmini Carrasco MD Work Phone: 0(139)880-303793 [place] [address] 06-27-2024 07:38-0400 Body temperature 97.8 [degF] Dr. Padmini Carrasco MD Work Phone: 5(661)495-262293 [place] [address] 06-27-2024 07:38-0400 Diastolic blood pressure 73 mm[Hg] Dr. Padmini Carrasco MD Work Phone: 8(012)879-289828 [place] [address] 06-27-2024 07:38-0400 Heart rate 56 /min Dr. Padmini Carrasco MD Work Phone: 4(868)433-052193 [place] [address] 06-27-2024 07:38-0400 Respiratory rate 16 /min Dr. Padmini Carrasco MD Work Phone: 3(044)894-350093 [place] [address] 06-27-2024 07:38-0400 SaO2% (BldA) [Mass fraction] 97 % Dr. Padmini Carrasco MD Work Phone: [facility] 06-27-2024 07:38-0400 Systolic blood pressure 173 mm[Hg] Dr. Padmini Carrasco MD Work Phone: 2(062)214-610528 [place] [address] 06-27-2024 06:57-0400 Body height 167.[address] Padmini Carrasco MD Work Phone: [facility] 06-27-2024 06:57-0400 Body mass index (BMI) [Ratio] 25.6 kg/m2 Dr. Padmini Carrasco MD Work Phone: [facility] 06-27-2024 06:57-0400 Body weight [address] Padmini Carrasco MD Work Phone: [facility] 06-19-2024 15:38-0400 Diastolic blood pressure 72 mm[Hg] Dr. Padmini Carrasco MD Work Phone: 8(033)069-284893 [place] [address] 06-19-2024 15:38-0400 Systolic blood pressure 146 mm[Hg] Dr. Padmini Carrasco MD Work Phone: 6(407)798-051528 [place] [address] 06-19-2024 06:17-0400 Body height 167.[address] Padmini Carrasco MD Work Phone: 6(238)421-177193 [place] [address] 06-19-2024 06:17-0400 Body mass index (BMI) [Ratio] 25.7 kg/m2 Dr. Padmini Carrasco MD Work Phone: 3(343)041-350928 [place] [address] 06-19-2024 06:17-0400 Body weight 72.[address] Padmini Carrasco MD Work Phone: 1(692)185-524428 [address] 06-19-2024 06:17-0400 Diastolic blood pressure 77 mm[Hg] Dr. Padmini Carrasco MD Work Phone: [facility] 06-19-2024 06:17-0400 Heart rate 52 /min Dr. Padmini Carrasco MD Work Phone: 8(274)894-881028 [place] [address] 06-19-2024 06:17-0400 Respiratory rate 18 /min Dr. Padmini Carrasco MD Work Phone: [facility] 06-19-2024 06:17-0400 SaO2% (BldA) [Mass fraction] 94 % Dr. Padmini Carrasco MD Work Phone: [facility] 06-19-2024 06:17-0400 Systolic blood pressure 163 mm[Hg] Dr. Padmini Carrasco MD Work Phone: 8(916)963-361428 [place] [address] 05-17-2024 00:50-0400 Body temperature 97.9 [degF] Dr. Padmini Carrasco MD Work Phone: [facility] 05-17-2024 00:50-0400 Diastolic blood pressure 78 mm[Hg] Dr. Padmini Carrasco MD Work Phone: [facility] 05-17-2024 00:50-0400 Heart rate 66 /min Dr. Padmini Carrasco MD Work Phone: 7(846)698-107693 [place] [address] 05-17-2024 00:50-0400 Respiratory rate 20 /min Dr. Padmini Carrasco MD Work Phone: 9(138)521-866293 [place] [address] 05-17-2024 00:50-0400 SaO2% (BldA) [Mass fraction] 95 % Dr. Padmini Carrasco MD Work Phone: 8(786)396-617528 [place] [address] 05-17-2024 00:50-0400 Systolic blood pressure 164 mm[Hg] Dr. Padmini Carrasco MD Work Phone: 4(061)056-458793 [place] [address] 05-16-2024 22:09-0400 Body height 167.[address] Padmini Carrasco MD Work Phone: 0(765)999-576193 [place] [address] 05-16-2024 22:09-0400 Body mass index (BMI) [Ratio] 25.9 kg/m2 Dr. Padmini Carrasco MD Work Phone: 1(585)589-026693 [place] [address] 05-16-2024 22:09-0400 Body weight 73.[address] Padmini Carrasco MD Work Phone: 8(731)972-677328 [place] [address] 03-23-2024 08:03-0500 Body mass index (BMI) [Ratio] 25.8 kg/m2 Dr. Padmini Carrasco MD Work Phone: 9(649)872-282693 [place] [address] 03-23-2024 08:03-0500 Body temperature 97.2 [degF] Dr. Padmini Carrasco MD Work Phone: 0(707)801-053193 [place] [address] 03-23-2024 08:03-0500 Body weight 72.[address] Padmini Carrasco MD Work Phone: [facility] 03-23-2024 08:03-0500 Diastolic blood pressure 87 mm[Hg] Dr. Padmini Carrasco MD Work Phone: [facility] 03-23-2024 08:03-0500 Heart rate 57 /min Dr. Padmini Carrasco MD Work Phone: [facility] 03-23-2024 08:03-0500 Respiratory rate 18 /min Dr. Padmini Carrasco MD Work Phone: [facility] 03-23-2024 08:03-0500 SaO2% (BldA) [Mass fraction] 98 % Dr. Padmini Carrasco MD Work Phone: [facility] 03-23-2024 08:03-0500 Systolic blood pressure 145 mm[Hg] Dr. Padmini Carrasco MD Work Phone: 5(066)687-767628 [place] [address] 01-18-2024 14:11-0500 Body temperature 97.9 [degF] Dr. Padmini Carrasco MD Work Phone: [facility] 01-18-2024 14:11-0500 Diastolic blood pressure 69 mm[Hg] Dr. Padmini Carrasco MD Work Phone: [facility] 01-18-2024 14:11-0500 Heart rate 53 /min Dr. Padmini Carrasco MD Work Phone: [facility] 01-18-2024 14:11-0500 Respiratory rate 16 /min Dr. Padmini Carrasco MD Work Phone: [facility] 01-18-2024 14:11-0500 SaO2% (BldA) [Mass fraction] 94 % Dr. Padmini Carrasco MD Work Phone: [facility] 01-18-2024 14:11-0500 Systolic blood pressure 160 mm[Hg] Dr. Padmini Carrasco MD Work Phone: [facility] 01-18-2024 10:01-0500 Body height 167.[address] Padmini Carrasco MD Work Phone: [facility] 01-18-2024 10:01-0500 Body mass index (BMI) [Ratio] 25.2 kg/m2 Dr. Padmini Carrasco MD Work Phone: 1(831)204-044428 [place] [address] 01-18-2024 10:01-0500 Body weight [address] Padmini Carrasco MD Work Phone: 0(068)185-565328 [place] [address] 02-28-2023 10:06-0500 Diastolic blood pressure 80 mm[Hg] Dr. Ezekiel Carrasco Work Phone: 1(959)370-478393 [place] [address] 02-28-2023 10:06-0500 Systolic blood pressure 164 mm[Hg] Dr. Ezekiel Carrasco Work Phone: 1(050)662-129593 [place] [address] 02-28-2023 09:35-0500 Body height 167.[address] Ezekiel Carrasco Work Phone: 3(552)890-680628 [address] 02-28-2023 09:35-0500 Body mass index (BMI) [Ratio] 24.5 kg/m2 Dr. Ezekiel Carrasco Work Phone: 5(741)280-178793 [place] [address] 02-28-2023 09:35-0500 Body weight 68.[address] Ezekiel Carrasco Work Phone: 6(147)003-777093 [place] [address] 02-28-2023 09:35-0500 Heart rate 54 /min Dr. Ezekiel Carrasco Work Phone: 2(893)445-361728 [place] [address] 02-28-2023 09:35-0500 Respiratory rate 18 /min Dr. Ezekiel Carrasco Work Phone: 7(051)846-676128 [address] 02-28-2023 09:35-0500 SaO2% (BldA) [Mass fraction] 96 % Dr. Ezekiel Carrasco Work Phone: 1(830)678-609928 [place] [address] 01-27-2023 07:54-0500 Body mass index (BMI) [Ratio] 23.9 kg/m2 Dr. Ezekiel Carrasco Work Phone: 6(569)445-292928 [place] [address] 01-27-2023 07:54-0500 Body temperature 98 [degF] Dr. Ezekiel Carrasco Work Phone: [facility] 01-27-2023 07:54-0500 Body weight 67.[address] Ezekiel Carrasco Work Phone: [facility] 01-27-2023 07:54-0500 Diastolic blood pressure 77 mm[Hg] Dr. Ezekiel Carrasco Work Phone: [facility] 01-27-2023 07:54-0500 Heart rate 55 /min Dr. Ezekiel Carrasco Work Phone: [facility] 01-27-2023 07:54-0500 Respiratory rate 18 /min Dr. Ezekiel Carrasco Work Phone: [facility] 01-27-2023 07:54-0500 SaO2% (BldA) [Mass fraction] 99 % Dr. Ezekiel Carrasco Work Phone: [facility] 01-27-2023 07:54-0500 Systolic blood pressure 183 mm[Hg] Dr. Ezekiel Carrasco Work Phone: [facility] 12-27-2022 15:13-0500 Body temperature 98.2 [degF] Dr. Ezekiel Carrasco Work Phone: [facility] 12-27-2022 15:13-0500 Body weight 65.[address] Ezekiel Carrasco Work Phone: [facility] 12-27-2022 15:13-0500 Diastolic blood pressure 68 mm[Hg] Dr. Ezekiel Carrasco Work Phone: [facility] 12-27-2022 15:13-0500 Heart rate 58 /min Dr. Ezekiel Carrasco Work Phone: [facility] 12-27-2022 15:13-0500 Respiratory rate 16 /min Dr. Ezekiel Carrasco Work Phone: [facility] 12-27-2022 15:13-0500 SaO2% (BldA) [Mass fraction] 98 % Dr. Ezekiel Carrasco Work Phone: [facility] 12-27-2022 15:13-0500 Systolic blood pressure 151 mm[Hg] Dr. Ezekiel Carrasco Work Phone: [facility] 07-28-2022 10:32-0400 Body height 167.[address] Ezekiel Carrasco Work Phone: [facility] 07-28-2022 10:31-0400 Body mass index (BMI) [Ratio] 23.3 kg/m2 Dr. Ezekiel Carrasco Work Phone: 6(738)919-760828 [place] [address] 07-28-2022 10:31-0400 Body temperature 97.6 [degF] Dr. Ezekiel Carrasco Work Phone: 9(463)423-560228 [address] 07-28-2022 10:31-0400 Body weight 65.[address] Ezekiel Carrasco Work Phone: [facility] 07-28-2022 10:31-0400 Diastolic blood pressure 80 mm[Hg] Dr. Ezekiel Carrasco Work Phone: [facility] 07-28-2022 10:31-0400 Heart rate 84 /min Dr. Ezekiel Carrasco Work Phone: [facility] 07-28-2022 10:31-0400 Respiratory rate 18 /min Dr. Ezekiel Carrasco Work Phone: [facility] 07-28-2022 10:31-0400 SaO2% (BldA) [Mass fraction] 95 % Dr. Ezekiel Carrasco Work Phone: [facility] 07-28-2022 10:31-0400 Systolic blood pressure 138 mm[Hg] Dr. Ezekiel Carrasco Work Phone: [facility] 06-04-2022 08:37-0400 Body temperature 95.6 [degF] Dr. Ezekiel Carrasco Work Phone: [facility] 06-04-2022 08:37-0400 Diastolic blood pressure 74 mm[Hg] Dr. Ezekiel Carrasco Work Phone: [facility] 06-04-2022 08:37-0400 Heart rate 69 /min Dr. Ezekiel Carrasco Work Phone: [facility] 06-04-2022 08:37-0400 Respiratory rate 16 /min Dr. Ezekiel Carrasco Work Phone: [facility] 06-04-2022 08:37-0400 Systolic blood pressure 136 mm[Hg] Dr. Ezekiel Carrasco Work Phone: [facility] 05-21-2022 08:08-0400 Body temperature 97.1 [degF] Dr. Ezekiel Carrasco Work Phone: 7(881)497-020328 [place] [address] 05-21-2022 08:08-0400 Diastolic blood pressure 71 mm[Hg] Dr. Ezekiel Carrasco Work Phone: [facility] 05-21-2022 08:08-0400 Heart rate 73 /min Dr. Ezekiel Carrasco Work Phone: [facility] 05-21-2022 08:08-0400 Respiratory rate 16 /min Dr. Ezekiel Carrasco Work Phone: [facility] 05-21-2022 08:08-0400 Systolic blood pressure 133 mm[Hg] Dr. Ezekiel Carrasco Work Phone: [facility] 05-17-2022 14:02-0400 Body height 167.[address] Ezekiel Carrasco Work Phone: [facility] 05-17-2022 14:02-0400 Body mass index (BMI) [Ratio] 24.5 kg/m2 Dr. Ezekiel Carrasco Work Phone: [facility] 05-17-2022 14:02-0400 Body weight 68.[address] Ezekiel Carrasco Work Phone: [facility] 05-17-2022 14:02-0400 Diastolic blood pressure 74 mm[Hg] Dr. Ezekiel Carrasco Work Phone: [facility] 05-17-2022 14:02-0400 Heart rate 58 /min Dr. Ezekiel Carrasco Work Phone: [facility] 05-17-2022 14:02-0400 Respiratory rate 18 /min Dr. Ezekiel Carrasco Work Phone: [facility] 05-17-2022 14:02-0400 SaO2% (BldA) [Mass fraction] 96 % Dr. Ezekiel Carrasco Work Phone: [facility] 05-17-2022 14:02-0400 Systolic blood pressure 134 mm[Hg] Dr. Ezekiel Carrasco Work Phone: [facility] 05-14-2022 08:07-0400 Body temperature 96.4 [degF] Dr. Ezekiel Carrasco Work Phone: [facility] 05-14-2022 08:07-0400 Diastolic blood pressure 74 mm[Hg] Dr. Ezekiel Carrasco Work Phone: [facility] 05-14-2022 08:07-0400 Heart rate 72 /min Dr. Ezekiel Carrasco Work Phone: [facility] 05-14-2022 08:07-0400 Respiratory rate 18 /min Dr. Ezekiel Carrasco Work Phone: [facility] 05-14-2022 08:07-0400 Systolic blood pressure 129 mm[Hg] Dr. Ezekiel Carrasco Work Phone: [facility] 05-11-2022 12:39-0400 Body weight 66.[address] Ezekiel Carrasco Work Phone: [facility] 05-11-2022 12:39-0400 Heart rate 80 /min Dr. Ezekiel Carrasco Work Phone: [facility] 05-11-2022 12:39-0400 SaO2% (BldA) [Mass fraction] 96 % Dr. Ezekiel Carrasco Work Phone: [facility] 05-08-2022 00:43-0400 Inhaled oxygen flow rate 2 L/min Dr. Ezekiel Carrasco Work Phone: [facility] 05-07-2022 10:14-0400 Body temperature 96.6 [degF] Dr. Ezekiel Carrasco Work Phone: [facility] 05-07-2022 10:14-0400 Diastolic blood pressure 66 mm[Hg] Dr. Ezekiel Carrasco Work Phone: 4(212)245-881028 [place] [address] 05-07-2022 10:14-0400 Heart rate 67 /min Dr. Ezekiel Carrasco Work Phone: 5(349)115-290228 [place] [address] 05-07-2022 10:14-0400 Respiratory rate 16 /min Dr. Ezekiel Carracso Work Phone: [facility] 05-07-2022 10:14-0400 Systolic blood pressure 129 mm[Hg] Dr. Ezekiel Carrasco Work Phone: 1(820)844-931828 [place] [address] 04-16-2022 14:11-0500 Inhaled oxygen flow rate 2 L/min Dr. Ezekiel Carrasco Work Phone: 3(572)714-828228 [place] [address] 03-30-2022 07:45-0500 Body height 167.[address] Ezekiel Carrasco Work Phone: [facility] 03-30-2022 07:45-0500 Body mass index (BMI) [Ratio] 23.7 kg/m2 Dr. Ezekiel Carrasco Work Phone: 2(606)345-090628 [place] [address] 03-30-2022 07:45-0500 Body temperature 97.6 [degF] Dr. Ezekiel Carrasco Work Phone: [facility] 03-30-2022 07:45-0500 Body weight 66.[address] Ezekiel Carrasco Work Phone: [facility] 03-30-2022 07:45-0500 Diastolic blood pressure 87 mm[Hg] Dr. Ezekiel Carrasco Work Phone: [facility] 03-30-2022 07:45-0500 Heart rate 107 /min Dr. Ezekiel Carrasco Work Phone: [facility] 03-30-2022 07:45-0500 Inhaled oxygen flow rate 2 L/min Dr. Ezekiel Carrasco Work Phone: [facility] 03-30-2022 07:45-0500 Respiratory rate 18 /min Dr. Ezekiel Carrasco Work Phone: [facility] 03-30-2022 07:45-0500 SaO2% (BldA) [Mass fraction] 99 % Dr. Ezekiel Carrasco Work Phone: [facility] 03-30-2022 07:45-0500 Systolic blood pressure 142 mm[Hg] Dr. Ezekiel Carrasco Work Phone: [facility] 03-29-2022 14:15-0500 Body mass index (BMI) [Ratio] 23.7 kg/m2 Dr. Ezekiel Carrasco Work Phone: [facility] 03-29-2022 14:15-0500 Body weight 66.[address] Ezekiel Carrasco Work Phone: [facility] 03-29-2022 14:15-0500 Diastolic blood pressure 64 mm[Hg] Dr. Ezekiel Carrasco Work Phone: [facility] 03-29-2022 14:15-0500 Heart rate 76 /min Dr. Ezekiel Carrasco Work Phone: [facility] 03-29-2022 14:15-0500 Inhaled oxygen flow rate 2 L/min Dr. Ezekiel Carrasco Work Phone: [facility] 03-29-2022 14:15-0500 Respiratory rate 20 /min Dr. Ezekiel Carrasco Work Phone: [facility] 03-29-2022 14:15-0500 SaO2% (BldA) [Mass fraction] 95 % Dr. Ezekiel Carrasco Work Phone: [facility] 03-29-2022 14:15-0500 Systolic blood pressure 107 mm[Hg] Dr. Ezekiel Carrasco Work Phone: [facility] 03-23-2022 14:03-0500 Body height 167.[address] Ezekiel Carrasco Work Phone: [facility] 03-23-2022 14:03-0500 Body mass index (BMI) [Ratio] 26.6 kg/m2 Dr. Ezekiel Carrasco Work Phone: [facility] 03-23-2022 14:03-0500 Body weight 74.[address] Ezekiel Carrasco Work Phone: [facility] 03-23-2022 14:03-0500 Diastolic blood pressure 73 mm[Hg] Dr. Ezekiel Carrasco Work Phone: [facility] 03-23-2022 14:03-0500 Heart rate 72 /min Dr. Ezekiel Carrasco Work Phone: [facility] 03-23-2022 14:03-0500 Respiratory rate 20 /min Dr. Ezekiel Carrasco Work Phone: [facility] 03-23-2022 14:03-0500 SaO2% (BldA) [Mass fraction] 94 % Dr. Ezekiel Carrasco Work Phone: [facility] 03-23-2022 14:03-0500 Systolic blood pressure 143 mm[Hg] Dr. Ezekiel Carrasco Work Phone: [facility] 03-22-2022 16:32-0500 Body mass index (BMI) [Ratio] 26.4 kg/m2 Dr. Ezekiel Carrasco Work Phone: [facility] 03-22-2022 16:32-0500 Body temperature 97.8 [degF] Dr. Ezekiel Carrasco Work Phone: [facility] 03-22-2022 16:32-0500 Body weight 74.[address] Ezekiel Carrasco Work Phone: [facility] 03-22-2022 16:32-0500 Diastolic blood pressure 87 mm[Hg] Dr. Ezekiel Carrasco Work Phone: [facility] 03-22-2022 16:32-0500 Heart rate 93 /min Dr. Ezekiel Carrasco Work Phone: [facility] 03-22-2022 16:32-0500 Inhaled oxygen flow rate 2 L/min Dr. Ezekiel Carrasco Work Phone: [facility] 03-22-2022 16:32-0500 Respiratory rate 20 /min Dr. Ezekiel Carrasco Work Phone: [facility] 03-22-2022 16:32-0500 SaO2% (BldA) [Mass fraction] 95 % Dr. Ezekiel Carrasco Work Phone: [facility] 03-22-2022 16:32-0500 Systolic blood pressure 145 mm[Hg] Dr. Ezekiel Carrasco Work Phone: [facility] 03-04-2022 16:23-0500 Inhaled oxygen flow rate 2 L/min Dr. Ezekiel Carrasco Work Phone: [facility] 03-04-2022 16:00-0500 Body temperature 98 [degF] Dr. Ezekiel Carrasco Work Phone: [facility] 03-04-2022 16:00-0500 Diastolic blood pressure 84 mm[Hg] Dr. Ezekiel Carrasco Work Phone: [facility] 03-04-2022 16:00-0500 Heart rate 90 /min Dr. Ezekiel Carrasco Work Phone: [facility] 03-04-2022 16:00-0500 SaO2% (BldA) [Mass fraction] 94 % Dr. Ezekiel Carrasco Work Phone: [facility] 03-04-2022 16:00-0500 Systolic blood pressure 129 mm[Hg] Dr. Ezekiel Carrasco Work Phone: [facility] 03-04-2022 13:43-0500 SaO2% (BldA) [Mass fraction] 98 % Dr. Ezekiel Carrasco Work Phone: [facility] 03-04-2022 11:47-0500 Heart rate 83 /min Dr. Ezekiel Carrasco Work Phone: 3(127)248-655828 [place] [address] 03-04-2022 11:47-0500 Respiratory rate 18 /min Dr. Ezekiel Carrasco Work Phone: 4(605)648-531828 [place] [address] 03-04-2022 10:00-0500 Body temperature 97.6 [degF] Dr. Ezekiel Carrasco Work Phone: 3(366)033-886528 [place] [address] 03-04-2022 10:00-0500 Diastolic blood pressure 89 mm[Hg] Dr. Ezekiel Carrasco Work Phone: 8(473)094-688528 [place] [address] 03-04-2022 10:00-0500 Systolic blood pressure 139 mm[Hg] Dr. Ezekiel Carrasco Work Phone: [facility] 03-03-2022 13:50-0500 Body height 167.[address] Ezekiel Carrasco Work Phone: [facility] 03-03-2022 13:50-0500 Body weight 69.[address] Ezekiel Carrasco Work Phone: [facility] 03-03-2022 02:55-0500 Inhaled oxygen concentration 4 % Dr. Ezekiel Carrasco Work Phone: [facility] 03-02-2022 16:29-0500 Body mass index (BMI) [Ratio] 24.8 kg/m2 Dr. Ezekiel Carrasco Work Phone: [facility] 03-02-2022 16:06-0500 Body temperature 97.5 [degF] Dr. Ezekiel Carrasco Work Phone: [facility] 03-02-2022 16:06-0500 Diastolic blood pressure 88 mm[Hg] Dr. Ezekiel Carrasco Work Phone: [facility] 03-02-2022 16:06-0500 Heart rate 84 /min Dr. Ezekiel Carrasco Work Phone: [facility] 03-02-2022 16:06-0500 Inhaled oxygen flow rate 3 L/min Dr. Ezekiel Carrasco Work Phone: [facility] 03-02-2022 16:06-0500 Respiratory rate 26 /min Dr. Ezekiel Carrasco Work Phone: [facility] 03-02-2022 16:06-0500 SaO2% (BldA) [Mass fraction] 92 % Dr. Ezekiel Carrasco Work Phone: [facility] 03-02-2022 16:06-0500 Systolic blood pressure 125 mm[Hg] Dr. Ezekiel Carrasco Work Phone: [facility] 03-02-2022 09:04-0500 Body height 167.[address] Ezekiel Carrasco Work Phone: [facility] 03-02-2022 09:04-0500 Body mass index (BMI) [Ratio] 24.8 kg/m2 Dr. Ezekiel Carrasco Work Phone: [facility] 03-02-2022 09:04-0500 Body weight 69.[address] Ezekiel Carrasco Work Phone: [facility] 01-06-2022 08:31-0500 Body height 167.[address] Ezekiel Carrasco Work Phone: [facility] Work Phone: 01-06-2022 08:24-0500 Body mass index (BMI) [Ratio] 27.9 kg/m2 Dr. Ezekiel Carrasco Work Phone: [facility] 01-06-2022 08:24-0500 Body weight 78.[address] Ezekiel Carrasco Work Phone: [facility] 01-06-2022 08:24-0500 Diastolic blood pressure 78 mm[Hg] Dr. Ezekiel Carrasco Work Phone: [facility] 01-06-2022 08:24-0500 Heart rate 71 /min Dr. Ezekiel Carrasco Work Phone: [facility] 01-06-2022 08:24-0500 Respiratory rate 18 /min Dr. Ezekiel Carrasco Work Phone: [facility] 01-06-2022 08:24-0500 SaO2% (BldA) [Mass fraction] 94 % Dr. Ezekiel Carrasco Work Phone: [facility] 01-06-2022 08:24-0500 Systolic blood pressure 133 mm[Hg] Dr. Ezekiel Carrasco Work Phone: [facility] 12-28-2021 12:34-0500 Diastolic blood pressure 86 mm[Hg] [facility] 12-28-2021 12:34-0500 Heart rate 85 /min [facility] 12-28-2021 12:34-0500 Respiratory rate 18 /min [facility] 12-28-2021 12:34-0500 SaO2% (BldA) [Mass fraction] 97 % [facility] 12-28-2021 12:34-0500 Systolic blood pressure 175 mm[Hg] [facility] 12-28-2021 09:44-0500 Body height 167.64 cm [facility] Work Phone: 12-28-2021 09:44-0500 Body mass index (BMI) [Ratio] 25.9 kg/m2 [facility] 12-28-2021 09:44-0500 Body temperature 96.1 [degF] [facility] 12-28-2021 09:44-0500 Body weight 72.9 kg [facility] 07-07-2021 08:23-0400 Body height 167.[address] Ezekiel Carrasco Work Phone: [facility] Work Phone: 07-07-2021 08:23-0400 Body weight 80.[address] Ezekiel Carrasco Work Phone: [facility] Work Phone: 07-07-2021 08:23-0400 Diastolic blood pressure 83 mm[Hg] Dr. Ezekiel Carrasco Work Phone: [facility] Work Phone: 07-07-2021 08:23-0400 Heart rate 77 /min Dr. Ezekiel Carrasco Work Phone: [facility] Work Phone: 07-07-2021 08:23-0400 Respiratory rate 18 /min Dr. Ezekiel Carrasco Work Phone: [facility] Work Phone: 07-07-2021 08:23-0400 SaO2% (BldA) [Mass fraction] 96 % Dr. Ezekiel Carrasco Work Phone: [facility] Work Phone: 07-07-2021 08:23-0400 Systolic blood pressure 142 mm[Hg] Dr. Ezekiel Carrasco Work Phone: [facility] Work Phone: 09-18-2020 08:58-0400 Body mass index (BMI) [Ratio] 31.6 kg/m2 Dr. Ezekiel Carrasco Work Phone: [facility] Work Phone: Encounters Encounter Date Encounter Type Care Provider Facility Start: 10-26-2024 End: 10-26-2024 ambulatory PADMINI CARRASCO Facility:[facility] Start: 10-22-2024 End: 10-22-2024 ambulatory Luigi Banks MD Work Phone: Radiation Oncology Comment on above: Patient Education (D ischarge teaching-completed radiation) Start: 10-19-2024 End: 10-19-2024 ambulatory [facility] [facility] Work Phone: Hematology/Oncology Comment on above: Malignant neoplasm o f urinary bladder, unspecified site (HCC) (Primary Dx) Start: 10-18-2024 End: 10-18-2024 ambulatory [facility] Facility:[facility] Start: 10-17-2024 End: 10-17-2024 Psychiatric Facility:[facility] Start: 10-16-2024 End: 10-16-2024 Patient encounter procedure Luigi Banks MD Work Phone: Radiation Oncology Comment on above: 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) Start: 10-16-2024 End: 10-16-2024 ambulatory LUIGI BANKS Facility:[facility] Start: 10-15-2024 End: 10-15-2024 ambulatory Treatment Rm 6 [place] [facility] Work Phone: Hematology/Oncology Comment on above: Malignant neoplasm o f urinary bladder, unspecified site (HCC) (Primary Dx); Malignant neoplasm of overlapping sites of bladder (HCC) Start: 10-12-2024 End: 10-12-2024 Patient encounter procedure Bob Otero Work Phone: Hematology/Oncology Start: 10-12-2024 End: 10-12-2024 ambulatory Lab/[place] [facility] Work Phone: Hematology/Oncology Comment on above: Malignant neoplasm o f prostate (HCC) (Primary Dx) Malignant neoplasm o f overlapping sites of bladder (HCC) (Primary Dx) Start: 10-11-2024 End: 10-11-2024 ambulatory [facility] Facility:[facility] Start: 10-10-2024 End: 10-10-2024 ambulatory [facility] Facility:[facility] Start: 10-09-2024 End: 10-09-2024 Patient encounter procedure Luigi Banks MD Work Phone: Radiation Oncology Comment on above: 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) Start: 10-09-2024 End: 10-09-2024 ambulatory [facility] [facility] Work Phone: Hematology/Oncology Comment on above: Malignant neoplasm o f overlapping sites of bladder (HCC) Start: 10-05-2024 End: 10-05-2024 ambulatory [facility]/[place] [facility] Work Phone: Hematology/Oncology Comment on above: 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) Start: 10-05-2024 End: 10-05-2024 ambulatory PADMINI CARRASCO Facility:[facility] Start: 10-04-2024 End: 10-04-2024 ambulatory PADMINI CARRASCO Facility:[facility] Start: 10-03-2024 End: 10-03-2024 ambulatory PADMINI CARRASCO Facility:[facility] Start: 10-02-2024 End: 10-02-2024 Patient encounter procedure Luigi Banks MD Work Phone: Radiation Oncology Comment on above: 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) Start: 10-02-2024 End: 10-02-2024 ambulatory PADMINI CARRASCO Facility:[facility] Start: 10-01-2024 End: 10-01-2024 ambulatory [facility]/[place] [facility] Work Phone: Hematology/Oncology Comment on above: Malignant neoplasm o f overlapping sites of bladder (HCC) Start: 10-01-2024 End: 10-01-2024 ambulatory PADMINI CARRASCO Facility:[facility] Start: 09-28-2024 End: 09-28-2024 ambulatory [facility]/[place] [facility] Work Phone: Hematology/Oncology Comment on above: Malignant neoplasm o f urinary bladder, unspecified site (HCC) (Primary Dx) Start: 09-27-2024 End: 09-27-2024 ambulatory PADMINI CARRASCO Facility:[facility] Start: 09-27-2024 End: 09-27-2024 ambulatory Treatment Rm 4 [place] [facility] Work Phone: Hematology/Oncology Comment on above: 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) Start: 09-26-2024 End: 09-26-2024 ambulatory PADMINI CARRASCO Facility:[facility] Start: 09-25-2024 End: 09-25-2024 Telephone encounter Wolf Palm RN Work Phone: Hematology/Oncology Comment on above: Care Coordination (C YCLE 1/DAY 1 POST TREATMENT CALL ) Start: 09-25-2024 End: 09-25-2024 Patient encounter procedure Luigi Banks MD Work Phone: Radiation Oncology Comment on above: 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 Padmini Carrasco MD Work Phone: -Radiology [facility] Start: 09-21-2024 End: 09-21-[address] Lakeisha Rivers DO -Radiology [facility] Work Phone: Start: 09-21-2024 End: 09-21-2024 ambulatory Padmini Carrasco Facility:[facility] Start: 09-18-2024 ambulatory PADMINI CARRASCO Fa cility:[facility] Start: 09-18-2024 End: 09-18-2024 Subsequent hospital visit by physician [facility] ([facility]) Work Phone: Cat Scan Comment on above: Malignant neoplasm o f urinary bladder, unspecified site (HCC) [C67.9] Start: 09-12-2024 End: 09-12-2024 ambulatory PADMINI CARRASCO Facility:[facility] Start: 09-07-2024 End: 09-19-2024 Patient encounter procedure Luigi Banks MD Work Phone: Radiation Oncology Start: 09-07-2024 End: 09-19-2024 Radiation Oncology Note Luigi Banks MD Work Phone: Radiation Oncology Comment on above: Simulation Note Treatment Planning Start: 09-07-2024 End: 09-07-2024 Psychiatric Facility:[facility] Start: 09-07-2024 End: 09-07-2024 Subsequent hospital visit by physician [facility] Work Phone: Radiology Comment on above: Malignant neoplasm o f overlapping sites of bladder (HCC) [C67.8] Start: 09-07-2024 End: 09-07-2024 Nursing evaluation of patient and report Nurse [facility]ang 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) Start: 09-07-2024 End: 09-07-2024 ambulatory [facility] Facility:[facility] Start: 09-06-2024 End: 09-06-2024 Telephone encounter Stacy Gauthier MD Work Phone: Urology Comment on above: Orders Start: 09-06-2024 End: 09-06-2024 ambulatory LAKEISHA RIVERS Facility:[facility] Start: 09-05-2024 End: 09-05-2024 Patient encounter procedure Lakeisha Rivers DO Work Phone: Hematology/Oncology Start: 09-05-2024 End: 09-06-2024 Telephone encounter Matthew Gu RN Hematology/Oncology Comment on above: Materials Handling Coordinator - O ther (Introduction ) Results Start: 09-05-2024 End: 09-05-2024 ambulatory Lakeisha Rivers DO Work Phone: Hematology/Oncology Comment on above: Malignant neoplasm o f urinary bladder, unspecified site (HCC) (Primary Dx) Start: 08-30-2024 End: 08-30-2024 Patient encounter procedure Farheen [facility] Work Phone: Start: 08-30-2024 End: 08-30-2024 Patient encounter status Farheen LUNDBERG [facility] Start: 08-30-2024 End: 08-30-[address] Padmini Carrasco MD Work Phone: -[facility] Start: 08-29-2024 End: 08-29-2024 Telephone encounter Codey Christianson MD Work Phone: Hematology/Oncology Comment on above: Materials Handling Coordinator - O ther Start: 08-29-2024 End: 08-29-2024 Patient encounter procedure Stacy Gauthier MD Work Phone: Urology Comment on above: Malignant neoplasm o f urinary bladder, unspecified site (HCC) (Primary Dx); Hematuria, gross Start: 08-29-2024 End: 08-29-2024 ambulatory STACY Shannon ABRAHAN Facility:[facility] Start: 08-24-2024 End: 08-24-2024 Telephone encounter Farheen Sommers hotel concierge/Oncology Comment on above: CASE [id number] Update Start: 08-22-2024 End: 08-22-2024 Telephone encounter Farheen Sommers hotel concierge/Oncology Comment on above: CASE [id number] Discussion Start: 08-21-2024 End: 08-21-2024 Telephone encounter Stacy Gauthier MD Work Phone: Urology Comment on above: Surgical Followup; O rders Start: 08-21-2024 End: 08-21-2024 ambulatory STACY Shannon ABRAHAN Facility:[facility] Start: 08-16-2024 End: 08-16-2024 Admission to establishment [facility] [place] Acc 1 Pre Surgical Testing Start: 08-16-2024 End: 08-16-2024 Patient encounter status Pst 1 [place] Work Phone: Start: 08-16-2024 End: 08-16-2024 ambulatory STACY Shannon ABRAHAN Pre Surgical Testing Comment on above: Preop testing (Prima ry Dx); 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 pectoris; Essential hypertension; Hyperlipidemia, [...] Start: 08-02-2024 End: 08-02-2024 ambulatory STACY GAUTHIER Facility:[facility] Start: 07-31-2024 End: 07-31-2024 ambulatory PADMINI CARRASCO Facility:[facility] Start: 07-31-2024 End: 07-31-2024 Subsequent hospital visit by physician Ct Prep [facility] Cat Scan Comment on above: Malignant neoplasm o f urinary bladder, unspecified site (HCC) [C67.9] Start: 07-26-2024 End: 07-26-2024 Chart abstracting Farheen Sommers RN Hematology/Oncology Start: 07-26-2024 End: 07-26-2024 ambulatory PADMINI CARRASCO Facility:[facility] Start: 07-26-2024 End: 07-26-2024 Patient encounter procedure Codey Christianson MD Work Phone: Hematology/Oncology Start: 07-26-2024 End: 07-26-2024 ambulatory Codey Christianson MD Work Phone: Hematology/Oncology Comment on above: Malignant neoplasm o f urinary bladder, unspecified site (HCC) (Primary Dx) Start: 07-09-2024 End: 07-09-[address] Padmini Carrasco MD Work Phone: [facility] Work Phone: Start: 07-09-2024 End: 07-09-[address] Padmini Carrasco MD -Laboratory [place] Work Phone: Start: 07-09-2024 End: 07-09-2024 ambulatory Padmini Carrasco Facility:[facility] Start: 06-27-2024 End: 06-28-2024 ambulatory Jose J Mcclendon Facility:[facility] Start: 06-27-2024 End: 06-28-2024 Evaluation and management of inpatient Dr. Jose J Mcclendon MD -Medical Surgical 3 Work Phone: Start: 06-27-2024 [facility] Jose J Mcclendon MD -Inspector Structural Bonding Work Phone: Start: 06-21-2024 End: 06-21-[address] Padmini Carrasco MD Work Phone: [facility] Work Phone: Start: 06-21-2024 End: 06-21-[address] Jose J Mcclendon MD -Laboratory Work Phone: Start: 06-21-2024 End: 06-21-2024 ambulatory Jose J Mcclendon Facility:[facility] Start: 06-19-[address] Quin Carrasco MD Work Phone: [facility] Start: 06-19-2024 End: 06-19-2024 Patient encounter procedure Nito ACUNA -[facility] Work Phone: Start: 06-19-2024 End: 06-19-2024 Patient encounter status Nito ACUNA [facility] Start: 06-19-2024 End: 06-19-[address] Pdamini Carrasco MD Work Phone: [facility] Work Phone: Start: 05-28-2024 End: 05-28-[address] Jose J Mcclendon MD -Laboratory, Specimen Work Phone: Start: 05-28-2024 End: 05-28-2024 ambulatory Jose J Mcclendon Facility:[facility] Start: 05-16-2024 End: 05-17-2024 Emergency department patient visit Dr. Padmini Carrasco MD Work Phone: -Emergency Department Work Phone: Start: 05-10-2024 End: 05-10-[address] Padmini Carrasco MD Work Phone: [facility] Work Phone: Start: 05-10-2024 End: 05-10-[address] Padmini Carrasco MD -Laboratory, [facility] Start: 05-10-2024 End: 05-10-2024 ambulatory Padmini Carrasco Facility:[facility] Start: 03-23-2024 End: 03-23-2024 Patient encounter procedure Carmina Tee NP-C -[facility] Work Phone: Start: 03-23-2024 End: 03-23-2024 ambulatory Padmini Carrasco Facility:[facility] [place] [place] Start: 02-21-2024 End: 02-21-2024 Patient encounter procedure Carmina Tee NP-C -Cat Scan, [facility] Work Phone: Start: 02-21-2024 End: 02-21-2024 ambulatory Padmini Carrasco Facility:[facility] Start: 02-02-2024 End: 02-02-[address] Marquise Barillas MD -[facility] Work Phone: Start: 02-02-2024 End: 02-02-2024 ambulatory Padmini Carrasco Facility:[facility] Start: 01-18-2024 Non-patient / Non-visit Dr. Alycia Barillas MD -[facility] Start: 01-18-2024 End: 01-18-2024 Admission to same day surgery center Dr. Marquise Barillas MD -Surgical Day Care Start: 01-18-2024 End: 01-18-2024 ambulatory Padmini Carrasco Facility:[facility] Start: 11-30-2023 Encounter for other preprocedural examination Marquise Barillas [facility] Start: 11-23-2023 End: 11-23-2023 ambulatory Padmini Carrasco Facility:[facility] Start: 11-09-2023 End: 11-09-2023 ambulatory Marquise Barillas Facility:[facility] Start: 10-27-2023 End: 10-27-2023 ambulatory Evgeny Jacobo Facility:[facility] Start: 10-24-2023 End: 10-24-2023 ambulatory Marquise Eran Facility:[facility] Start: 04-29-2023 Non-patient / Non-visit Dr. Rambo Carrasco Work Phone: [facility] Work Phone: Start: 04-29-2023 Non-patient / Non-visit Dr. Rambo Carrasco Work Phone: [facility] Start: 04-29-2023 End: 04-29-[address] Ezekiel Carrasco Work Phone: [facility] Work Phone: Start: 04-29-2023 End: 04-29-[address] Ezekiel Carrasco Work Phone: [facility]-Cardiovascul ar Services Work Phone: Start: 02-28-2023 End: 02-28-[address] Ezekiel Carrasco Work Phone: [facility] Work Phone: Start: 02-28-2023 End: 02-28-[address] Ezekiel Carrasco Work Phone: [facility] Work Phone: Start: 02-10-2023 End: 02-10-[address] Ezekiel Carrasco Work Phone: [facility] Work Phone: Start: 01-27-2023 End: 01-27-[address] Ezekiel Carrasco Work Phone: [facility]-Pulmonary Medicine [facility] Work Phone: Start: 12-27-2022 End: 12-27-[address] Ezekiel Carrasco Work Phone: [facility] Work Phone: Start: 12-22-2022 Non-patient / Non-visit Dr. Rambo Carrasco Work Phone: [facility] Start: 12-22-2022 End: 12-22-[address] Ezekiel Carrasco Work Phone: [facility] Work Phone: Start: 12-22-2022 End: 12-22-[address] Ezekiel Carrasco Work Phone: [facility]-Cardiovascul ar Services Work Phone: Start: 12-15-2022 End: 12-15-2022 ambulatory [facility] Work Phone: Start: 12-15-2022 End: 12-15-2022 Patient encounter procedure [facility] Work Phone: Start: 12-14-2022 End: 12-14-2022 ambulatory [facility] Work Phone: Start: 12-14-2022 End: 12-14-2022 Patient encounter procedure [facility] Start: 08-16-2022 End: 08-16-[address] Ezekiel Carrasco Work Phone: [facility] Work Phone: Start: 08-16-2022 End: 08-16-[address] Ezekiel Carrasco Work Phone: [facility]-Laboratory, [facility] Start: 07-28-2022 End: 07-28-[address] Ezekiel Carrasco Work Phone: [facility]-Pulmonary Medicine [facility] Work Phone: Start: 06-04-2022 Non-patient / Non-visit Dr. Rambo Carrasco Work Phone: [facility] Start: 06-04-2022 End: 06-04-[address] Ezekiel Carrasco Work Phone: [facility] Work Phone: Start: 06-04-2022 End: 06-04-[address] [facility] Start: 05-28-2022 Non-patient / Non-visit Dr. Rambo Carrasco Work Phone: [facility] Start: 05-21-2022 Non-patient / Non-visit Dr. Rambo Carrasco Work Phone: [facility] Start: 05-21-[address] Dk Carrasco Work Phone: [facility] Start: 05-17-2022 End: 05-17-[address] Ezekiel Carrasco Work Phone: [facility] Work Phone: Start: 05-17-2022 End: 05-17-[address] [facility] Start: 05-14-2022 Non-patient / Non-visit Dr. Rambo Carrasco Work Phone: [facility] Start: 05-14-[address] Dk Carrasco Work Phone: [facility] Start: 05-12-2022 Non-patient / Non-visit Dr. Rambo Carrasco Work Phone: [facility] Start: 05-11-2022 End: 05-11-[address] Ezekiel Carrasco Work Phone: [facility] Work Phone: Start: 05-11-2022 End: 05-11-[address] Ezekiel Carrasco Work Phone: [facility]-Pulmonary Services/Neurology Start: 05-07-2022 Non-patient / Non-visit Dr. Rambo Carrasco Work Phone: [facility] Start: 05-07-2022 End: 05-07-[address] Ezekiel Carrasco Work Phone: [facility] Work Phone: Start: 05-07-2022 End: 05-07-[address] Ezekiel Carrasco Work Phone: [facility] Start: 05-03-2022 Non-patient / Non-visit Dr. Rambo Carrasco Work Phone: [facility] Start: 05-03-2022 End: 05-03-[address] Ezekiel Carrasco Work Phone: [facility] Work Phone: Start: 05-03-2022 End: 05-03-[address] Ezekiel Carrasco [facility] Start: 04-30-2022 Non-patient / Non-visit Dr. Rambo Carrasco Work Phone: [facility] Start: 04-23-2022 Non-patient / Non-visit Dr. Rambo Carrasco Work Phone: [facility] Start: 04-16-2022 Non-patient / Non-visit Dr. Rambo Carrasco Work Phone: [facility] Start: 04-09-2022 Non-patient / Non-visit Dr. Rambo Carrasco Work Phone: [facility] Start: 04-09-[address] Dk Carrasco [facility] Start: 04-06-2022 End: 04-06-[address] Ezekiel Carrasco Work Phone: [facility] Work Phone: Start: 04-06-2022 End: 04-06-[address] Ezekiel Carrasco Work Phone: [facility] Start: 04-02-2022 End: 04-02-[address] Ezekiel Carrasco Work Phone: [facility] Work Phone: Start: 04-02-2022 End: 04-02-[address] Ezekiel Carrasco Work Phone: [facility]-Laboratory Start: 03-31-2022 Non-patient / Non-visit Dr. Rambo Carrasco Work Phone: [facility] Start: 03-31-2022 Non-patient / Non-visit Dr. Rambo Carrasco Work Phone: [facility] Start: 03-31-2022 Non-patient / Non-visit [facility] Rambo [facility] Start: 03-31-2022 End: 03-31-[address] Ezekiel Carrasco Work Phone: [facility] Work Phone: Start: 03-31-2022 End: 03-31-[address] Ezekiel Carrasco Work Phone: [facility]-Cardiovascul ar Services Start: 03-30-2022 End: 03-30-[address] Ezekiel Carrasco Work Phone: [facility] Vascular Surgery Start: 03-30-2022 End: 03-30-[address] Ezekiel Carrasco Work Phone: [facility]-Pulmonary Medicine [facility] Start: 03-29-2022 End: 03-29-[address] Ezekiel Carrasco Work Phone: [facility] Work Phone: Start: 03-29-2022 End: 03-29-[address] Ezekiel Carrasco Work Phone: [facility] Start: 03-23-2022 End: 03-23-[address] Ezekiel Carrasco Work Phone: [facility] Start: 03-22-2022 End: 03-22-2022 Emergency department patient visit Dr. Ezekiel Carrasco Work Phone: [facility]-Emergency Department Start: 03-18-2022 End: 03-18-[address] Ezekiel Carrasco Work Phone: [facility] Work Phone: Start: 03-18-2022 End: 03-18-[address] Ezekiel Carrasco Work Phone: [facility] Start: 03-10-2022 End: 03-10-[address] Ezekiel Carrasco Work Phone: [facility] Work Phone: Start: 03-10-2022 End: 03-10-[address] Ezekiel Carrasco Work Phone: [facility] Start: 03-04-2022 Non-patient / Non-visit Dr. Rambo Carrasco Work Phone: [facility] Inpatient Physicians Start: 03-03-2022 Non-patient / Non-visit Dr. Rambo Carrasco Work Phone: [facility] Inpatient Phys[facility] Start: 03-02-2022 Non-patient / Non-visit Dr. Rambo Carrasco Work Phone: [facility] Inpatient Physicians Start: 03-02-2022 End: 03-04-2022 Evaluation and management of inpatient Dr. Ezekiel Carrasco Work Phone: [facility]-Progressive Care Unit Start: [address] Dk Carrasco Work Phone: [facility]-Physical Therapy Start: 02-25-2022 End: 02-25-[address] Ezekiel Carrasco Work Phone: [facility] Work Phone: Start: 02-25-2022 End: 02-25-[address] Ezekiel Carrasco Work Phone: [facility] Start: 02-03-2022 Orders Only Jamin hernandez MD Work Phone: Vascular Surg Dept Comment on above: Ruptured abdominal a ortic aneurysm (AAA), unspecified part (Primary Dx) Start: 01-25-2022 End: 01-25-[address] Ezekiel Carrasco Work Phone: [facility] Work Phone: Start: 01-25-2022 End: 01-25-[address] Ezekiel [facility] Start: 01-25-2022 Telephone encounter Holly cervantes MD Work Phone: Cardiology Comment on above: Surgical Followup Start: 01-21-2022 End: 01-21-[address] Ezekiel Carrasco Work Phone: [facility] Work Phone: Start: 01-21-2022 End: 01-21-[address] Ezekiel Carrasco Work Phone: [facility] Start: 01-06-2022 End: 01-06-[address] Ezekiel Carrasco Work Phone: [facility] Start: 01-06-2022 End: 01-06-[address] Ezekiel Carrasco Work Phone: [facility] Start: 01-01-2022 Orders Only Jamin hernandez MD Work Phone: Vascular Surg Dept Comment on above: Abdominal aortic ane urysm (AAA) without rupture, unspecified part (Primary Dx); Edema of abdomen Appointment Start: 12-28-2021 ambulatory Venita Shha APRN.CNP Work Phone: Critical Care Start: 12-28-2021 End: 12-28-2021 Emergency department patient visit [facility]-Emergency Department Start: 12-22-2021 End: 12-22-2021 ambulatory [facility] Work Phone: Start: 12-22-2021 End: 12-22-2021 Patient encounter procedure [facility] Start: 09-23-2021 End: 09-23-[address] Ezekiel Carrasco Work Phone: [facility] Work Phone: Start: 09-23-2021 End: 09-23-[address] Ezekiel Carrasco Work Phone[facility] Start: 08-20-2021 End: 08-20-[address] Ezekiel Carrasco Work Phone[facility] Start: 07-07-2021 End: 07-07-[address] Ezekiel Carrasco Work Phone: [facility] Start: 05-11-2021 Telephone encounter Ezekiel Sepulveda MD Work Phone: Vascular Surg Dept Comment on above: Patient Update Start: 02-03-2021 Encounter for other preprocedural examination STACY GAUTHIER [facility] Start: 02-09-2019 Patient encounter status Dk Sepulveda MD Work Phone: [facility] Procedures Date Procedure Procedure Detail Performing Clinician Start: 10-15-2024 Blood count complete auto&auto difrntl wbc Lakeisha A Masci DO Work Phone: Start: 10-09-2024 Blood count complete auto&auto difrntl wbc Lakeisha A Masci DO Work Phone: Start: 10-01-2024 Blood count complete auto&auto difrntl wbc Lakeisha A Masci DO Work Phone: Start: 09-24-2024 Blood count complete auto&auto difrntl wbc Lakeisha A Masci DO Work Phone: Start: 09-07-2024 Us retroperitoneal r eal time w/image complete Lakeisha A Masci DO Work Phone: Start: 08-29-2024 BLADDER SCAN [...] artery bypass grafting Hx of CABG Venita Shah APRN.CNP Work Phone: Start: 12-28-2021 Computed tomography of abdomen and pelvis with intravenous contrast Start: 08-20-[address] Horacio Carrasco Work Phone: Start: 04-10-2019 Lipid 1996 panel - S tammy or Plasma Farheen Sommers RN Start: 02-15-2019 Adult depression scr eening assessment Padmini Sepulvead MD Work Phone: Start: 02-12-2019 History of [...] P,Tdap,Td Vaccine (2 - Td or Tdap) [facility] Start: 07-27-2027 Diabetes Screening Diabetes Screenin g [facility] Start: 10-15-2025 Complete blood count Hemoglobin/Miguel A [facility] Start: 10-09-2025 Complete blood count Hemoglobin/Miguel A [facility] Start: 10-01-2025 Complete blood count Hemoglobin/Miguel A [facility] Start: 10-01-2025 Creatinine measurement Serum Creatin ine [facility] Start: 09-27-2025 Creatinine measurement Serum Creatin ine [facility] Start: 09-24-2025 Complete blood count Hemoglobin/Miguel A [facility] Start: 09-24-2025 Creatinine measurement Serum Creatin ine [facility] Start: 09-05-2025 Complete blood count Hemoglobin/Miguel A [facility] Start: 09-05-2025 Creatinine measurement Serum Creatin ine [facility] Start: 07-31-2025 Screening for malign ant neoplasm of lung Lung Cancer Screening [facility] Start: 07-26-2025 Complete blood count Hemoglobin/Miguel A [facility] Start: 07-26-2025 Creatinine measurement Serum Creatin ine [facility] Start: 01-03-2025 DIABETES SCREEN DIABETES SCREEN [facility] Start: 01-01-2025 DIABETES SCREEN DIABETES SCREEN [facility] Start: 12-28-2024 DIABETES SCREEN DIABETES SCREEN [facility] Start: 11-19-2024 End: 11-19-2024 Patient encounter procedure 11/19/2024 9:00 AM EDT Office Visit Radiation Oncology [address] [place] [address] Luigi Banks MD [address] [place] [address] 4 wk follow Radiation Oncology Comment on above: 4 wk follow Start: 11-09-2024 End: 11-09-2024 ambulatory 11/09/2024 11:00 AM EDT Visit (SP) Office Hematology/Oncology [address] [place] [address] Lakeisha Rivers DO [address] [place] [address] 8 WK OV* Hematology/Oncology Comment on above: 8 WK OV* Start: 10-22-2024 End: 10-22-2024 Patient encounter procedure Radiation Oncology Comment on above: Con Chemo Start: 10-19-2024 End: 10-19-2024 ambulatory 10/19/2024 4:00 PM EDT [facility] Center Hematology/Oncology [address] [place] [address] Wstr, Lab/[place] [facility] [address] [place] [address] DC CADD* Hematology/Oncology Comment on above: DC CADD* Start: 10-19-2024 End: 10-19-2024 Patient encounter procedure 10/19/2024 10:15 AM EDT Appointment Radiation Oncology [address] [place] [address] Con Chemo Radiation Oncology Comment on above: Con Chemo Start: 10-18-2024 End: 10-18-2024 Patient encounter procedure 10/18/2024 10:15 AM EDT Appointment Radiation Oncology [address] [place] [address] Con Chemo Radiation Oncology Comment on above: Con Chemo Start: 10-17-2024 End: 10-17-2024 Patient encounter procedure Radiation Oncology Comment on above: Con Chemo Con Chemo. Give appt card Start: 10-16-2024 End: 10-16-2024 Patient encounter procedure Radiation Oncology Comment on above: Con Chemo Location: W-ON TREAT MENT VISIT Start: 10-15-2024 End: 10-15-2024 Patient encounter procedure 10/15/2024 10:15 AM EDT Appointment Radiation Oncology [address] [place] [address] Con Chemo Radiation Oncology Comment on above: Con Chemo Start: 10-15-2024 End: 10-15-2024 ambulatory Hematology/Oncology Comment on above: D22 CBC/CMP/QMO 5FU/ 2-2(PICC)ON XRT* D22(SO)CBC/CMP(S)(PI CC)/QMO 5FU/2-2/ON XRT* D22(SO)REDRAW CBC/CM P(S)(PICC)/QMO 5FU/2-2/ON XRT* Start: 10-12-2024 End: 10-12-2024 Patient encounter procedure 10/12/2024 10:15 AM EDT Appointment Radiation Oncology [address] [place] [address] Con Chemo Radiation Oncology Comment on above: Con Chemo Start: 10-12-2024 End: 10-12-2024 ambulatory Hematology/Oncology Comment on above: 4 WK OV/CHEMO 10/15* M ASCI (PICC)/DRESSING MCKINLEY GE* Start: 10-11-2024 End: 10-11-2024 Patient encounter procedure 10/11/2024 10:15 AM EDT Appointment Radiation Oncology [address] [place] [address] Con Chemo Radiation Oncology Comment on above: Con Chemo Start: 10-10-2024 End: 10-10-2024 Patient encounter procedure 10/10/2024 10:15 AM EDT Appointment Radiation Oncology [address] [place] [address] Con Chemo Radiation Oncology Comment on above: Con Chemo Start: 10-09-2024 End: 10-09-2024 Patient encounter procedure Radiation Oncology Comment on above: Con Chemo Location: W-ON TREAT MENT VISIT Start: 10-09-2024 End: 10-09-2024 ambulatory Hematology/Oncology Comment on above: D15 CBC(PICC)/DRESSI NG CHANGE* D22 CBC/CMP(PICC)/DR ARANA CHANGE* D15(SO)CBC(PICC)/DIDIER SSIAUTUMN CHANGE* Start: 10-08-2024 Influenza vaccination Influenza Vacc ine (#1) [facility] Start: 10-05-2024 End: 10-05-2024 ambulatory 10/05/2024 10:45 AM EDT Infusion Center Hematology/Oncology [address] [place] [address] Wstr, Lab/[place] c [address] [place] [address] PICC DRESSING CHANGE Hematology/Oncology Comment on above: PICC DRESSING CHANGE Start: 10-05-2024 End: 10-05-2024 Patient encounter procedure 10/05/2024 10:15 AM EDT Appointment Radiation Oncology [address] [place] [address] [facility] Radiation Oncology Comment on above: Con Chemo Start: 10-04-2024 End: 10-04-2024 Patient encounter procedure 10/04/2024 10:15 AM EDT Appointment Radiation Oncology [address] [place] [address] [facility] Radiation Oncology Comment on above: Con Chemo Start: 10-03-2024 End: 10-03-2024 Patient encounter procedure 10/03/2024 10:15 AM EDT Appointment Radiation Oncology [address] [place] [address] [facility] Radiation Oncology Comment on above: Con Chemo Start: 10-02-2024 End: 10-02-2024 Patient encounter procedure Radiation Oncology Comment on above: Con Chemo Location: W-ON TREAT MENT VISIT Start: 10-01-2024 End: 10-01-2024 ambulatory Hematology/Oncology Comment on above: D8 CBC(PICC)/DRESSIN G CHANGE* D8 CBC(PICC)/ D8 CBC/CMP(PICC)/ Start: 10-01-2024 End: 10-01-2024 Patient encounter procedure 10/01/2024 10:15 AM EDT Appointment Radiation Oncology [address] [place] [address] [facility] Radiation Oncology Comment on above: Con Chemo Start: 09-28-2024 End: 09-28-2024 ambulatory Hematology/Oncology Comment on above: DC CADD* DC CADD*/PICC DRESSI NG CHANGE Start: 09-28-2024 End: 09-28-2024 Patient encounter procedure 09/28/2024 10:15 AM EDT Appointment Radiation Oncology [address] [place] [address] Con Chem[facility] Radiation Oncology Comment on above: Con Chemo Start: 09-27-2024 End: 09-27-2024 ambulatory 09/27/2024 9:45 AM EDT Infusion Center Hematology/Oncology [address] [place] [address] Wstr, Lab/[place] [facility] [address] [place] [address] BMP* POSSIBLE HYDRATION Hematology/Oncology Comment on above: BMP* POSSIBLE HYDRAT ION Start: 09-27-2024 End: 09-27-2024 Patient encounter procedure Radiation Oncology Comment on above: Con Chemo Con Chemo. today onl y Start: 09-26-2024 End: 09-26-2024 Patient encounter procedure 09/26/2024 10:15 AM EDT Appointment Radiation Oncology [address] [place] [address] Con Chemo Radiation Oncology Comment on above: Con Chemo Start: 09-25-2024 End: 09-25-2024 Patient encounter procedure Radiation Oncology Comment on above: Con Chemo Location: W-ON TREAT MENT VISIT Start: 09-24-2024 End: 09-24-2024 Patient encounter procedure Radiation Oncology Comment on above: con chemo tent time wants AM times con chemo Start: 09-24-2024 End: 09-24-2024 ambulatory 09/24/2024 11:00 AM EDT Infusion Center Hematology/Oncology [address] [place] [address] START QMO 5FU/1-2(PICC)ON XRT* Hematology/Oncology Comment on above: START QMO 5FU/1-2(PI BRIANNA)ON XRT* Start: 09-18-2024 End: 09-18-2024 Patient encounter procedure 09/18/2024 9:00 AM EDT Appointment Cat Scan [address] [facility] [place] [place] [address] Malignant neoplasm of urinary bladder, unspecified site (HCC) [C67.9] Cat Scan Comment on above: Malignant neoplasm o f urinary bladder, unspecified site (HCC) [C67.9] Start: 09-17-2024 End: 09-17-2024 Patient encounter procedure Radiation Oncology Comment on above: con chemo tent time con chemo tent time wants AM times Start: 09-13-2024 End: 09-13-2024 Patient encounter procedure 09/13/2024 1:30 PM EDT Office Visit Urology [address] [id number] Tc Nath MD [address] [place] [id number] CONSULT TO UROLOGY Urology Comment on above: CONSULT TO UROLOGY Start: 09-12-2024 End: 09-12-2024 ambulatory 09/12/2024 10:30 AM EDT [facility] Hematology/Oncology [address] [place], [place] [id number] Wstr, Materials Handling Coordinator [facility] [address] [place], [place] [id number] CHEMO ED-5FU*rescheduled from 09/07 Hematology/Oncology Comment on [...] EDT Nurse Visit Radiation Oncology [address] [place] [address] Wstr, Nurse Radt [facility] [address] [place] [address] Location: W-NURSING Radiation Oncology Comment on above: Location: W-NURSING Start: 09-06-2024 End: 09-06-2024 Patient encounter procedure 09/06/2024 10:30 AM EDT Office Visit Radiation Oncology [address] [place] [address] Luigi Banks MD [address] [place] [address] Malignant neoplasm of urinary bladder, unspecified site (HCC) [C67.9] Radiation Oncology Comment on above: Malignant neoplasm o f urinary bladder, unspecified site (HCC) [C67.9] Start: 09-05-2024 End: 09-05-2024 ambulatory 09/05/2024 2:00 PM EDT Visit (SP) Office Hematology/Oncology [address] [place] [address] Lakeisha Rivers DO [address] [place] [address] transfer of care from [facility] Hematology/Oncology Comment on above: transfer of care fabiola bailon [facility] Start: 09-05-2024 End: 12-05-2024 Chronic hepatitis differentiation between hepatitis B and C virus panel - Serum or Plasma [facility] Comment on above: Expected: 09/05/2024 , Expires: 12/05/2024 Start: 09-05-2024 End: 12-05-2024 DPYD/[id number] GENOTYPING PANEL [facility] Work Phone: Comment on above: Expected: 09/05/2024 , Expires: 12/05/2024 Start: 09-04-2024 End: 12-04-2024 Basic metabolic 2000 panel - Serum or Plasma BASIC METABOLIC PANEL Lab Routine Malignant neoplasm of urinary bladder, unspecified site (HCC) Other hydronephrosis Expected: 09/04/2024, Expires: 12/04/2024 [facility] Comment on above: Expected: 09/04/2024 , Expires: 12/04/2024 Start: 09-04-2024 End: 09-20-2025 CT Abdomen and Pelvis WO contrast CT ABD/PEL WO IVCON Radiology Routine Malignant neoplasm of urinary bladder, unspecified site (HCC) Other hydronephrosis Expected: 09/04/2024, Expires: 09/20/2025 [facility] Work Phone: Comment on above: Expected: 09/04/2024 , Expires: 09/20/2025 Start: 08-21-2024 End: 08-21-2024 Admission to same day surgery center 08/21/2024 3:25 PM EDT - 08/21/2024 4:40 PM EDT Surgery [address] [address] Stacy Gauthier MD [address] [place] [address] CYSTOSCOPY RIGID [facility] Comment on above: CYSTOSCOPY RIGID Start: 08-21-2024 Subsequent hospital visit by physician 08/21/2024 3:25 PM EDT Hospital Encounter [address] [address] Stacy Gauthier MD [address] [place] [address] Malignant neoplasm of urinary bladder, unspecified site (HCC) [C67.9], Gross hematuria [R31.0] [facility] Comment on above: Malignant neoplasm o f urinary bladder, unspecified site (HCC) [C67.9], Gross hematuria [R31.0] Start: 08-21-2024 End: 08-21-2024 Cysto w/insert ureteral stent [place] Start: 08-21-2024 End: 08-21-2024 Cysto w/removal of tumors small [place] Start: 08-21-2024 End: 08-21-2024 Cystourethroscopy [place] Start: 08-16-2024 End: 11-15-2024 Bacteria identified in Urine by Culture BACTERIAL CULTURE, URINE Microbiology Routine Hematuria, gross Expected: 08/16/2024, Expires: 11/15/2024 [facility] Comment on above: Expected: 08/16/2024 , Expires: 11/15/2024 Start: 08-16-2024 End: 08-16-2024 ambulatory 08/16/2024 10:00 AM EDT PAT Pre Surgical Testing [address] [place] [address] PAT CYSTOSCOPY TRANS URETHRAL RESECTION OF A BLADDER TUMOR LEFT URETERAL STENT INSERTION Pre Surgical Testing Comment on above: PAT CYSTOSCOPY TRANS URETHRAL RESECTION OF A BLADDER TUMOR LEFT URETERAL STENT INSERTION Start: 08-02-2024 End: 08-02-2024 Patient encounter procedure 08/02/2024 2:15 PM EDT Office Visit Urology [address] [place] [address] Stacy Gauthier MD [address] [place] [address] bladder cancer Urology Comment on above: bladder cancer Start: 07-31-2024 End: 07-31-2024 Patient encounter procedure Cat Scan Comment on above: CT ABD/PEL W IVCON Start: 06-28-2024 Chemotherapy care management [facility] Start: 06-28-2024 End: 06-28-2024 Patient discharge [facility] Start: 06-28-2024 Inhalation therapy procedure [facility] Start: 06-27-2024 Measuring intake and output [facility] Start: 06-27-2024 Ambulation therapy management [facility] Start: 06-27-2024 Deep breathing and coughing exercises [facility] Start: 06-27-2024 Incentive spirometry [facility] Start: 06-27-2024 Oxygen therapy [facility] Start: 06-27-2024 Provision of activit y privileges [facility] Start: 06-27-2024 Assessment of risk o f venous thromboembolism [facility] Start: 06-27-2024 End: 06-27-2024 Following clinical pathway protocol [facility] Start: 06-27-2024 Taking patient vital signs [facility] Start: 06-27-2024 Vital signs measurements [facility] Start: 06-27-2024 End: 06-27-2024 [facility] Start: 06-27-2024 Admission procedure [facility] Start: 06-27-2024 Anes transurethral resection of bladder tumor ANESTH BLADDER TUMOR SURG [facility] Start: 06-27-2024 Cystourethroscopy w/ dest &/rmvl tumor large CYSTOSCOPY AND TREATMENT [facility] Start: 06-27-2024 Transurethral resect ion of bladder neoplasm Cysto,Transurethal Resec Bladder,Olympus (Not Applicable) [facility] Start: 06-27-2024 Ambulation without limitation [facility] Start: 06-27-2024 Medication education [facility] Start: 06-27-2024 Patient discharge [facility] Start: 06-27-2024 Planned voiding [facility] Start: 06-27-2024 Taking patient vital signs [facility] Start: 06-27-2024 [facility] Start: 06-27-2024 [facility] Start: 05-16-2024 End: 05-17-2024 [facility] Start: 04-09-2024 Lipid panel Lipid Screening [facility] Start: 04-09-2024 LIPID SCREEN LIPID SCREEN [facility] Start: 02-08-2024 Advance Directive Discussion Advance Directive Discussion [facility] Start: 01-18-2024 Anesthesia hernia re pair lower abdomen nos ANESTH REPAIR OF HERNIA [facility] Start: 01-18-2024 Rpr 1st ingun hrna a ge 5 yrs/> reducible PRP I/SHILPI INIT REDUC >5 YR [facility] Start: 01-18-2024 Patient discharge [facility] Start: 10-09-2023 Covid-19 Vaccine ( season) Covid-19 Vaccine () [facility] Start: 02-03-2023 BP CONTROLLED (<130/80) BP CONTROLLE D (<130/80) [facility] Start: 05-11-2022 Exercise tolerance test [facility] Start: 05-03-2022 Measurement of respi ratory function [facility] Start: 04-09-2022 DIABETES SCREEN DIABETES SCREEN [facility] Start: 03-30-2022 Patient referral [facility] Work Phone: Start: 03-04-2022 Patient discharge [facility] Start: 03-03-2022 Referral to occupati onal therapist [facility] Start: 03-03-2022 Referral to service [facility] Start: 03-03-2022 Referral to service [facility] Start: 03-02-2022 Following clinical p athway protocol [facility] Start: 03-02-2022 Assessment of risk o f venous thromboembolism [facility] Start: 03-02-2022 Catheterization of vein [facility] Start: 03-02-2022 Elevation of head of bed [facility] Start: 03-02-2022 Incentive spirometry [facility] Start: 03-02-2022 Inhalation therapy procedure [facility] Start: 03-02-2022 Insertion of cathete r into peripheral vein [facility] Start: 03-02-2022 Oxygen therapy [facility] Start: 03-02-2022 Patient education [facility] Start: 03-02-2022 Physiotherapy of chest [facility] Start: 03-02-2022 Providing care accor ding to standard [facility] Start: 03-02-2022 Referral to service [facility] Start: 03-02-2022 [facility] Start: 03-02-2022 Verification routine [facility] Start: 03-02-2022 Following clinical p athway protocol [facility] Start: 03-02-2022 Legionella pneumophi la Ag [Presence] in Urine [facility] Start: 03-02-2022 Streptococcus pneumo niae antigen assay [facility] Start: 03-02-2022 [facility] Start: 03-02-2022 Admission procedure [facility] Start: 03-02-2022 End: 03-02-2022 [facility] Start: 03-02-2022 Patient referral to dietitian [facility] Start: 02-07-2022 ADVANCE DIRECTIVE DISCUSSION ADVANCE DIRECTIVE DISCUSSION [facility] Start: 02-07-2022 DEPRESSION ASSESSMENT DEPRESSION ASS ESSMENT [facility] Start: 10-08-2021 Influenza vaccination INFLUENZA (#1) [facility] Start: 02-07-2021 ADVANCE DIRECTIVE DISCUSSION ADVANCE DIRECTIVE DISCUSSION [facility] Start: 02-07-2021 DEPRESSION ASSESSMENT DEPRESSION ASS ESSMENT [facility] Start: 04-09-2020 Hepatitis B surface antibody level LDL CHOLESTEROL [facility] Start: 02-16-2020 Adult depression scr eening assessment DEPRESSION SCREENING [facility] Start: 11-18-2019 Colonoscopy COLONOSCOPY [facility] Start: 11-18-2019 COLORECTAL CANCER SCREENING COLORECTAL CANCER SCREENING [facility] Start: 11-18-2019 Screening for malign ant neoplasm of colon [facility] Start: 03-10-2015 Medicare Annual Well ness Visit Medicare Annual Wellness Visit [facility] Start: 2015 PNEUMOVAX AGE 65 AND OVER WITH 5YR LOOKBACK (#1) PNEUMOVAX AGE 65 AND OVER WITH 5YR LOOKBACK (#1) [facility] Start: 02-07-2015 Medicare Annual Well ness Visit Medicare Annual Wellness Visit [facility] Start: 2010 RSV Vaccine (1 - Ris k 60-74 years 1-dose series) RSV Vaccine (1 - Risk 60-74 years 1-dose series) [facility] Start: 2005 Influenza vaccination LUNG CANCER SC [facility] Start: 02-27-2000 Influenza vaccination LUNG CANCER [facility] Start: 02-27-2000 SHINGRIX VACCINE (1 of 2) SANCHEZ GRIX VACCINE (1 of 2) [facility] Start: 1995 COLOGUARD (FIT-DNA) COLOGUARD (FIT-D NA) [facility] Start: [address] COLONOGRAPHY [facility] Start: 1995 FECAL OCCULT BLOOD FECAL OCCULT BLOO D [facility] Start: 1995 Screening for malign ant neoplasm of colon [facility] Start: 1995 SIGMOIDOSCOPY SIGMOIDOSCOPY [facility] Start: 02-27-1980 Zoledronic acid therapy ALPHA- 1 ANTITRYPSIN DEFICIENCY SCREENING [facility] Start: 1969 Shingrix Vaccine (1 of 2) Sanchez grix Vaccine (1 of 2) [facility] Start: 1969 Urine microalbumin profile DTAP,TDAP ,TD (1 - Tdap) [facility] Start: 02-27-1968 ANNUAL PCP TEAM DIRECTOR OF PUBLICATIONS AINSLEY DISEASE VISIT ANNUAL PCP TEAM CHRONIC DISEASE VISIT [facility] Start: 02-27-1968 Anxiety Screening Anxiety Screening [facility] Start: 02-27-1968 BP CONTROLLED (<130/80) BP CONTROLLE D (<130/80) [facility] Start: 02-27-1968 Depression Screening Depression Scre ening [facility] Start: 02-27-1968 HEPATITIS C SCREENING [facility] Start: 02-27-1968 Hepatitis C screening Hepatitis C Sc [facility] Start: 02-27-1960 Diabetic foot examination Diabetic F oot Exam [facility] Start: 02-27-1960 Glaucoma screening Dilated Retinal E xam [facility] Start: 02-27-1960 Hepatitis B screening Urine Albumin:Creatinine Ratio [facility] Start: 02-27-1956 PNEUMOCOCCAL: 65+ (1 - PCV) PNEUMOCOCCAL: 65+ (1 - PCV) [facility] Start: 1955 COVID-19 VACCINE (1) COVID-19 VACCIN E (1) [facility] Start: 1955 Hemoglobin A1c measurement HbA1C [facility] Start: 1950 COVID-19 VACCINE (#1) COVID-19 VACCI NE (#1) [facility] Bacteria identified in Sputum by Respiratory culture [facility] Blood chemistry [facility] CT Abdomen and Pelvi s WO contrast CT ABD/PEL WO IVCON Radiology Routine Malignant neoplasm of urinary bladder, unspecified site (HCC) Other hydronephrosis 09/18/2024 9:19 AM EDT [facility] Work Phone: CT Chest [facility] Guidance for percuta neous placement of nephrostomy tube of Kidney IR NEPHROSTOMY TUBE PLACE Radiology Routine Malignant neoplasm of overlapping sites of bladder (HCC) ROSALIE (acute kidney injury) Hydroureter on left Ordered: 09/05/2024 [facility] Comment on above: Ordered: 09/05/2024 H&P for surgery H&P FOR SURGERY Procedures Routine Malignant neoplasm of urinary bladder, unspecified site (HCC) Hematuria, gross Ordered: 08/13/2024 [facility] Work Phone: Comment on above: Ordered: 08/13/2024 Patient Education [facility] Work Phone: Patient referral [facility] Work Phone: Respiratory Culture Respiratory Culture [facility] UA DIP, URINE (POC) UA DIP, URIN E (POC) Lab Routine Malignant neoplasm of urinary bladder, unspecified site (HCC) Nocturia Hematuria, gross Ordered: 08/02/2024 [facility] Work Phone: Comment on above: Ordered: 08/02/2024 Urine culture [facility] End: 01-01-2023 US ABD AORTA COMPLETE VAS LAB US ABD AORTA COMPLETE VAS LAB Vascular Lab Routine Abdominal aortic aneurysm (AAA) without rupture, unspecified part Edema of abdomen 1 Occurrences starting 01/01/2022 until 01/01/2023 [facility] Work Phone: Comment on above: 1 Occurrences starti ng 01/01/2022 until 01/01/[address] [facility] End: 10-05-2025 US Kidney - bilateral and Urinary bladder US KIDNEY/BLADDER Radiology STAT Malignant neoplasm of overlapping sites of bladder (HCC) ROSALIE (acute kidney injury) Hydroureter on left 1 Occurrences starting 09/05/2024 until 10/05/2025 [facility] Work Phone: Comment on above: 1 Occurrences starti ng 09/05/2024 until 10/05/[address] & VAS [facility] Immunizations Immunization Date Immunization Notes Care Provider Fa cili 01-11-2024 influenza virus vacc ine, unspecified formulation Codey Christianson MD Work Phone: [facility] Payers Date Payer Category Payer Self-pay [id number] 2015 Medicare MEDICARE MEDICAR E A AND B [id number] 2015-Present [phone] [place] [address] Medicare [id number] 2015 Medicare [id number] 2015 Medicare [id number] 2005 Unknown [facility] [id number] 2005-Present [phone] [address] [place] [address] O [id number] Unknown [facility] *DO NOT USE* [id number] Unknown [id number] Unknown [id number] Unknown [id number] 2.16.840.1.092508.3.579.2.462 Unknown [id number] [id number] Unknown [id number] 2.16.840.1.943923.3.579.2.462 Unknown [id number] 2.16.840.1.191322.3.579.2.462 Unknown [id number] 2.16.840.1.575222.3.579.2.462 Unknown [id number] 2.16.840.1.893680.3.579.2.462 Unknown [id number] 2.16.840.1.714946.3.579.2.462 Unknown [id number] 2.16.840.1.846671.3.579.2.462 Unknown [id number] 2.16.840.1.362506.3.579.2.462 Unknown [id number] 2.16.840.1.394604.3.579.2.462 Unknown [id number] 2.16.840.1.285233.3.579.2.462 Unknown [id number] 2.16.840.1.374591.3.579.2.462 Unknown [id number] 2.16.840.1.330493.3.579.2.462 Unknown [id number] 2.16.840.1.823904.3.579.2.462 Unknown [id number] 2.16.840.1.145988.3.579.2.462 Unknown [id number] 2.16.840.1.677860.3.579.2.462 Unknown [id number] 2.16.840.1.630486.3.579.2.462 Unknown [id number] [id number] Social History Date Type Detail Facility [facility] Work Phone: End: 01-30-2019 History of tobacco use Current smoker [facility] Work Phone: Start: 01-30-1979 End: 01-30-2019 History of tobacco use Cigarette Smoker [facility] Work Phone: Start: 04-17-2021 End: 10-12-2024 Alcohol intake Current non-drinker of alcohol (finding) [facility] Start: 08-11-2012 End: 12-28-2021 Tobacco Comment started smoking 15yo, usually 1 PPD [facility] Start: 1950 Sex Assigned At Not on file [facility] Start: 04-07-2021 End: 12-28-2021 Exposure to SARS-CoV-2 (event) Not sure [facility] Start: 07-07-2021 End: 02-28-2023 Tobacco smoking status AZIS Unknown if ever smoked [facility] Start: 11-14-2018 Cigarettes [facility] Start: 1950 Sex Assigned At Male [facility] Start: 01-30-1979 End: 08-02-2024 Tobacco smoking status NHIS Smokes tobacco daily [facility] Work Phone: Start: 12-28-2021 End: 07-31-2024 Cigarettes smoked current (pack per day) - Reported 1 [facility] Start: 12-28-2021 End: 08-02-2024 Tobacco use and exposure Smokeless tobacco non-user [facility] Work Phone: Start: 05-16-2024 End: 05-17-2024 Sex Male (finding) [facility] Start: 02-03-2022 End: 07-31-2024 Tobacco use panel [facility] Start: 01-09-2012 PHQ2 Score 0 [facility] Start: 09-12-2024 Gender identity Identifies as male gender (finding) [facility] Start: 09-12-2024 Sexual orientation Heterosexual (khang celaya) [facility] How often to you hav e a drink containing alcohol? Never [facility] Medical Equipment Procedure Code Equipment Code Equipment Origin al Text Equipment Identifier Dates Repair, hernia, inguinal, with mesh insertion ([id number]) Extra-gynaecological surgical mesh, synthetic polymer, non-bioabsorbable ()[id number] FDA Start: 11-09-2023 Repair, hernia, inguinal, with mesh insertion ([id number]) Extra-gynaecological surgical mesh, synthetic polymer, non-bioabsorbable ()[id number] FDA Start: 01-18-2024 [place] Thk1.65mm P tfe 4x.5in Cardiovascular Sterile - [id number] Start: 02-12-2019 Valve Aort 23mm Crp-Ed Thfx - [id number] Start: 02-12-[address] us Vascutek 18/9mm 2 Branch Gelatin 45cm Vascular Main Leg - [id number] Start: 12-28-2021 Goals Date Patient Goal Desired Activity /State Functional Status Date Assessment Result Facility 10-12-2024 Total score [AUDIT-C] 0 10/13/19 25 10:19 AM EDT Paramjit Lugo MA [facility] 06-28-2024 Functional status Ambulates [facility] Work Phone: 03-04-2022 Functional status Ambulates [facility] Work Phone: 01-03-2022 Are you deaf, or do you have serious difficulty hearing No 01/03/2022 12:55 PM Abida Bright, RN No [facility] 01-03-2022 Are you blind, or do you have serious difficulty seeing, even when wearing glasses No 01/03/2022 12:55 PM Abida Bright, RN No [facility] 02-20-2019 Do you have serious difficulty walking or climbing stairs No 02/20/2019 1:06 PM Terrie Keys (Rn), RN No [facility] 02-20-2019 Do you have difficul ty dressing or bathing No 02/20/2019 1:06 PM Terrie Keys (Rn), RN No [facility] 02-20-2019 Because of a physica l, mental, or emotional condition, do you have difficulty doing errands alone such as visiting a physician's office or shopping No 02/20/2019 1:06 PM Terrie Keys (Rn), RN No [facility] Mental Status Date Assessment Result Facility 09-21-2024 Cognitive function [facility]/Name [facility] Work Phone: 06-28-2024 Cognitive function Level Of Cons ciousness Awake;Alert;Appropriate;Fol lows [facility] Work Phone: 06-27-2024 Cognitive function Voice/Name [facility] Work Phone: 06-27-2024 Cognitive function Voice/Name [facility] Work Phone: 01-18-2024 Cognitive function Voice/Name [facility] Work Phone: 03-03-2022 Cognitive function [facility]/Name [facility] Work Phone: 02-20-2019 Because of a physica l, mental, or emotional condition, do you have serious difficulty concentrating, remembering, or making decisions No 02/20/2019 1:06 PM Terrie Keys (Rn), RN No [facility] Clinical Notes 02-12-2019 to 10-22-2024 Unruly Diaz RN - 10/22/2024 10:05 AM Nighat Ng RN - 10/16/2024 10:15 AM Luigi Hernandez MD - 10/16/2024 9:56 AM Bob Ferrell - 10/12/2024 11:30 AM EDTPatient Instructions Note Date & Type Note Facility 10-22-2024 Note HNO ID: [id number] Author: UNRULY IDAZ, RN Service: ? Author Type: Registered Nurse Type: Progress Notes Filed: 10/22/2024 10:15 Note Text: AMBULATORY PATIENT EDUCATION NOTE TOPIC: SURVIVAL SKILLS: Symptom Management READINESS TO LEARN COGNITIVE ABILITY: Alert and oriented MOTIVATION TO LEARN: Eager Interested FAMILY SUPPORT: Unable to assess - Family not present INSTRUCTION PROVIDED TO: Patient PATIENT LEARNS BEST BY: Multiple Methods FACTORS AFFECTING LEARNING: None PHYSICAL LIMITATIONS AFFECTING LEARNING: None LEARNING RESPONSE DIAGNOSIS: C67.0 METHOD OF INSTRUCTION: Teach Back skin care Individual instruction Written instruction/Handouts Verbal instruction PATIENT / FAMILY RESPONSE: Verbalizes understanding of: SYMPTOM MANAGEMENT-Correct actions to take to manage symptoms associated with his/her disease/illness FOLLOW-UP PLAN: Patient instructed to call with any further issues Reinforce - Repeat previous content Contact information given. SUPPLEMENTAL MATERIAL: D/C sheet REFERRAL (RECOMMENDATION): None Written discharge instructions given and reviewed with patient. Patient verbalizes understanding. Encouraged to call with any questions or concerns. Instruction for 4 week in person follow up appointment given by Dr. Banks. Electronically Signed By: Unruly Diaz RN In Department: RADIATION ONCOLOGY Time spent on patient education: 05 minutes. [facility] 10-22-2024 History of Presen t illness Narrative AMBULATORY PATIENT EDUCATION NOTE TOPIC: SURVIVAL SKILLS: Symptom Management READINESS TO LEARN COGNITIVE ABILITY: Alert and oriented MOTIVATION TO LEARN: Eager Interested FAMILY SUPPORT: Unable to assess - Family not present INSTRUCTION PROVIDED TO: Patient PATIENT LEARNS BEST BY: Multiple Methods FACTORS AFFECTING LEARNING: None PHYSICAL LIMITATIONS AFFECTING LEARNING: None LEARNING RESPONSE DIAGNOSIS: C67.0 METHOD OF INSTRUCTION: Teach Back skin care Individual instruction Written instruction/Handouts Verbal instruction PATIENT / FAMILY RESPONSE: Verbalizes understanding of: SYMPTOM MANAGEMENT-Correct actions to take to manage symptoms associated with his/her disease/illness FOLLOW-UP PLAN: Patient instructed to call with any further issues Reinforce - Repeat previous content Contact information given. SUPPLEMENTAL MATERIAL: D/C sheet REFERRAL (RECOMMENDATION): None Written discharge instructions given and reviewed with patient. Patient verbalizes understanding. Encouraged to call with any questions or concerns. Instruction for 4 week in person follow up appointment given by Dr. Banks. Electronically Signed By: Unruly Diaz RN In Department: RADIATION ONCOLOGY Time spent on patient education: 05 minutes. documented in this encounter [facility] 10-22-2024 Note HNO ID: [id number] Author: LUIGI BANKS MD Service: Radiation Oncology Author Type: Physician Type: Progress Notes Filed: 10/30/2024 10:25 Note Text: ABELARDO IVORY [id number] 10/22/2024 [facility] Department of Radiation Oncology [facility] RADIATION ONCOLOGY: COMPLETION NOTE DATE OF SIMULATION: 09/07/2024 DATES OF TREATMENT: 09/24/2024 to 10/22/2024 UNIT: [facility] AREA TREATED: Bladder/prostate DISEASE: Clinical stage II, cT2 cN0, 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 CONCURRENT THERAPY: definitive and concurrent chemotherapy (Mitomycin 5- FU) DELIVERED DOSE: The Bladder/prostate PTV received a total dose of 5500 cGy in 20 fractions at 275 cGy/fraction prescribed to PTV mean at 98.8% IDL using 10 MV photons with VMAT Coplanar technique; CBCT DAILY. ELAPSED TIME: 28 days. TOLERANCE: At last on-treatment visit, his toxicity was summarized as: He is doing well without any specific new complaints related to radiation treatment. Bladder pain resolved now. RESPONSE: To be assessed in outpatient clinic. REMARKS: The patient will have a follow up in four weeks. Staff Physician Luigi Banks M.D 0:25 AM Electronically Signed cc: Padmini Carrasco (Kyleigh) [address] [place] [id number] [address] [place] [address] [facility] 10-22-2024 Note Education (GABRIELTWS) ABELARDO IVORY ([id number]) 1950 M Date Time Provider Department 10/22/24 LUIGI BANKS Reason for Visit: Patient Education [91] Cmt: Discharge teaching-completed radiation During your visit today, we recorded the following information about you: Allergies As of Date: 10/22/2024 (No Known Allergies) Date Reviewed: 10/16/2024 Reviewed by: Nighat Hines, ANGELA - Fully Assessed Prescriptions as of 10/22/2024 - ondansetron (ZOFRAN) 8 mg tablet Take 1 tablet by mouth every 8 hours as needed (For chemotherapy induced nausea and vomiting.). - phenazopyridine (PYRIDIUM) 100 mg tablet Take 100 mg by mouth three times a day. - cholecalciferol, vitamin D3, (VITAMIN D-3) 10 mcg (400 unit) cap Take 400 Units by mouth once daily. - amLODIPine (NORVASC) 5 mg tablet Take 5 mg by mouth once daily. - dkyrobhdzns-ibcgmzmpb-bygibohr (TRELEGY ELLIPTA) 200-62.5-25 mcg inhalation powder Inhale [...] 0.5 tablets by mouth every 12 hours. Encounter Status:Closed by UNRULY DIAZ on 10/22/24 [facility] 10-16-2024 History of Presen t illness Narrative Radiation Therapy - Nursing Note (OTV) PATIENT NAME: Abelardo Ivory PATIENT October 16, 2024 [facility] FACILITY/LOCATION: [place] NURSING NOTE TYPE: PROSTATE - MALE PELVIS Subjective Data No concerns voiced Additional Data Do you want to see a Pasting Inspector? No Status: Patient is male Stress Scale: On a scale of 0 to 10, what number best describes how much distress you have experienced in the past week?(0 being no distress and 10 being extreme distress) 1 Social work notified: Pt denied need to see social media manager at this time. Nursing Assessment Fatigue: increased fatigue over baseline but not altering normal activities Appetite: fair Nutritional Intake: Regular oral intake. Weight Gain/Loss: Not applicable Ambulatory weight history: Last 6 Encounter Wt Readings: Date: Wt: 10/15/2024 66.2 kg (146 lb) 10/12/2024 66.7 kg (147 lb) 09/24/2024 68 kg (150 lb) 09/06/2024 69.2 kg (152 lb 9.6 oz) 09/05/2024 69.2 kg (152 lb 8 oz) 08/29/2024 70.8 kg (156 lb) Nausea:None Vomiting: None Bowel Function: normal bowel movements Erythema/Hyperpigmentation:none Desquamation:none Rash:none Skin Care: Aquaphor Skin Sensation: Within Normal Limits Focused Assessment PROSTATE - MALE PELVIS: Rectal bleeding: No. Rectal pain: No. Bladder function: no problems. Urinary frequency (D/N): [id number]/[id number]. 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 COURSE: definitive and concurrent chemotherapy (Mitomycin 5-FU) AREA TREATED: Bladder CURRENT DOSE: 4400 cGy in 16 fx PLANNED DOSE: 5500 cGy in 20 fx SUBJECTIVE: He is doing well without any specific new complaints related to radiation treatment. Bladder pain resolved now. EXAM: KPS: 90 General Appearance: Alert and oriented. No acute distress. IMAGING/LAB RESULTS: CBC today reviewed. Platelet count 55K. Treatment chart checked: Yes Patient treatment site reviewed and verified:Yes CBCTs reviewed and current:Yes Medications started: None ASSESSMENT/PLAN: Clinically stable. Treatment-related side effects within expected parameters. Continue radiation treatment as planned. Luigi Banks MD documented in this encounter [facility] 10-16-2024 Note HNO ID: [id number] Author: NIGHAT HINES RN Service: ? Author Type: Registered Nurse Type: Progress Notes Filed: 10/16/2024 10:15 Note Text: Radiation Therapy - Nursing Note (OTV) PATIENT NAME: Abelardo Ivory PATIENT October 16, 2024 [facility] FACILITY/LOCATION: [facility] NOTE TYPE: PROSTATE - MALE PELVIS Subjective Data No concerns voiced Additional Data Do you want to see a Pasting Inspector? No Status: Patient is male Stress Scale: On a scale of 0 to 10, what number best describes how much distress you have experienced in the past week?(0 being no distress and 10 being extreme distress) 1 Social work notified: Pt denied need to see social media manager at this time. Nursing Assessment Fatigue: increased fatigue over baseline but not altering normal activities Appetite: fair Nutritional Intake: Regular oral intake. Weight Gain/Loss: Not applicable Ambulatory weight history: Last 6 Encounter Wt Readings: Date: Wt: 10/15/2024 66.2 kg (146 lb) 10/12/2024 66.7 kg (147 lb) 09/24/2024 68 kg (150 lb) 09/06/2024 69.2 kg (152 lb 9.6 oz) 09/05/2024 69.2 kg (152 lb 8 oz) 08/29/2024 70.8 kg (156 lb) Nausea:None Vomiting: None Bowel Function: normal bowel movements Erythema/Hyperpigmentation:none Desquamation:none Rash:none Skin Care: Aquaphor Skin Sensation: Within Normal Limits Focused Assessment PROSTATE - MALE PELVIS: Rectal bleeding: No. Rectal pain: No. Bladder function: no problems. Urinary frequency (D/N): [id number]/2-3. SIGNED by: Nighat Hines RN [facility] 10-16-2024 Note HNO ID: [id number] Author: LUIGI BANKS MD Service: ? 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 COURSE: definitive and concurrent chemotherapy (Mitomycin 5-FU) AREA TREATED: Bladder CURRENT DOSE: 4400 cGy in 16 fx PLANNED DOSE: 5500 cGy in 20 fx SUBJECTIVE: He is doing well without any specific new complaints related to radiation treatment. Bladder pain resolved now. EXAM: KPS: 90 General Appearance: Alert and oriented. No acute distress. IMAGING/LAB RESULTS: CBC today reviewed. Platelet count 55K. Treatment chart checked: Yes Patient treatment site reviewed and verified:Yes CBCTs reviewed and current:Yes Medications started: None ASSESSMENT/PLAN: Clinically stable. Treatment-related side effects within expected parameters. Continue radiation treatment as planned. Luigi Banks MD [facility] 10-12-2024 History of Presen t illness Narrative Abelardo Ivory 1950 10/12/2024 Patient self-referred for muscle invasive bladder cancer. HPI: The patient is a 74-year-old male with a past medical history as outlined below. Developed gross hematuria and noticed debris in urine. Saw Dr. Mcclendon. Had TURBT with chemo flush. Path below. Referred to [facility] b/c patient declined cystectomy. Per Dr. [...] ppd since age 15 years Pathology from [facility] reviewed at main campus: A. Urinary bladder, transurethral resection: - Invasive [...] cough. Clear sputum. Sees Dr. Zuñiga at [facility]. Smokes about 1/2 ppd. No alcohol. Interval Hx: Pt presents today for follow up on concurrent chemo/radiation. Tolerated chemo well. A little bit of nausea managed with antiemetic. He notes he has been taking zofran q8 hours scheduled. He thought he was supposed to be taking Q8 daily. No HFS. Denies neuropathy. No fevers, chills or NS. Denies rash or skin changes. No changes in bowel or bladder habits. No UTI symptoms. Denies bleeding. Reviewed labs today. Thrombocytopenia. He is on ASA. Advised to hold for now. PAST MEDICAL HISTORY Diagnosis Date Abdominal aortic [...] LENS Left REMV CATARACT EXTRACAP,INSERT LENS Right ondansetron (ZOFRAN) 8 mg tablet Take 1 tablet by mouth every 8 hours as needed (For chemotherapy induced nausea and vomiting.). cholecalciferol, vitamin D3, (VITAMIN D-3) 10 mcg (400 unit) cap Take 400 Units by mouth once daily. amLODIPine (NORVASC) 5 mg tablet Take 5 mg by mouth once daily. skpurmxkuug-svohhvxis-xjzxihjk (TRELEGY ELLIPTA) 200-62.5-25 mcg inhalation powder Inhale [...] 0.5 tablets by mouth every 12 hours. phenazopyridine (PYRIDIUM) 100 mg tablet Take 100 mg by mouth three times a day. (Patient not taking: Reported on 10/02/2024) ALLERGIES No Known Allergies Social History Tobacco Use Smoking status: Every Day Current packs/day: 0.00 Average packs/day: 1 pack/day for 40.0 years (40.0 ttl pk-yrs) Types: Cigarettes Start date: 01/30/1979 Last attempt to quit: 01/30/2019 Years since quittin.7 Smokeless tobacco: Never Tobacco comments: started smoking 15yo, usually 1 PPD Vaping Use Vaping status: Never Used Substance Use Topics Alcohol use: No Drug use: No Worked for [employer]. [employer]. FAMILY HISTORY Problem Relation Age of Onset Diabetes Mother Emphysema Mother Asthma Sister Kidney Disease Sister Aneurysm No Family History REVIEW OF SYSTEMS: Constitutional: No episodes of fever and night sweats.Normal appetite. PHYSICAL EXAM: Vitals: Blood pressure 158/78, pulse (!) 58, temperature 36.4 C (97.6 F), temperature source Temporal, weight 66.7 kg (147 lb), SpO2 98%. Well-appearing and in no acute distress. EYES: [...] -Declines surgery. -Discussed rationale for concurrent chemotherapy/radiation. Following with Dr Banks -Started 5FU with mitomycin on 09/24/2024, Plan: -Labs today thrombocytopenia, will need recheck on Tuesday ] -treatment pending labs -PICC line for treatment. -CBC/CMP on day 1. CBC on days 8 and 15. CBC and CMP on day 22. -Plan referral back to Dr. Gauthier about 4 to 6 weeks after completing therapy for repeat cystoscopy. Advised to call with any questions or concerns. Bob Otero APRN.RECORDS MANAGEMENT MANAGER I spent a total of 30 minutes on the date of the service which included preparing to see the patient, [id number] patient care, completing clinical documentation, obtaining and/or reviewing separately obtained history, performing a medically appropriate examination, and counseling and educating the patient/family/caregiver. Portions of this note including HPI, ROS, impression/plan may have been copied forward as to provide important historical information essential in contributing to medical decision making. Documentation has been reviewed and edited as necessary to support clinical decision making for today's visit and to reflect my own independent evaluation of this patient. documented in this encounter [facility] 10-12-2024 Note HNO ID: [id number] Author: BOB OTERO, ? Service: ? Author Type: Nurse Practitioner Type: Progress Notes Filed: 10/12/2024 12:41 Note Text: Abelardo Ivory 1950 10/12/2024 Patient self-referred for muscle invasive bladder cancer. HPI: The patient is a 74-year-old male with a past medical history as outlined below. Developed gross hematuria and noticed debris in urine. Saw Dr. Mcclendon. Had TURBT with chemo flush. Path below. Referred to [facility] b/c patient declined cystectomy. Per Dr. [...] ppd since age 15 years Pathology from [facility] reviewed at [facility]: A. Urinary bladder, transurethral resection: - [...] cough. Clear sputum. Sees Dr. Zuñiga at [facility]. Smokes about 1/2 ppd. No alcohol. Interval Hx: Pt presents today for follow up on concurrent chemo/radiation. Tolerated chemo well. A little bit of nausea managed with antiemetic. He notes he has been taking zofran q8 hours scheduled. He thought he was supposed to be taking Q8 daily. No HFS. Denies neuropathy. No fevers, chills or NS. Denies rash or skin changes. No changes in bowel or bladder habits. No UTI symptoms. Denies bleeding. Reviewed labs today. Thrombocytopenia. He is on ASA. Advised to hold for now. PAST MEDICAL HISTORY Diagnosis Date Abdominal aortic [...] LENS Left REMV CATARACT EXTRACAP,INSERT LENS Right ondansetron (ZOFRAN) 8 mg tablet Take 1 tablet by mouth every 8 hours as needed (For chemotherapy induced nausea and vomiting.). cholecalciferol, vitamin D3, (VITAMIN D-3) 10 mcg (400 unit) cap Take 400 Units by mouth once daily. amLODIPine (NORVASC) 5 mg tablet Take 5 mg by mouth once daily. nepykwkwuru-uxccewiwc-egqectei (TRELEGY ELLIPTA) 200-62.5-25 mcg inhalation powder Inhale [...] Breath. metoprolol tartrate, short acting, (LOPRESSOR) 25 (more content not included)... [facility] 10-09-2024 Note HNO ID: [id number] Author: LUIGI BANKS MD Service: ? 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 COURSE: definitive and concurrent chemotherapy (Mitomycin 5-FU) AREA TREATED: Bladder CURRENT DOSE: 3025 cGy in 11 fx PLANNED DOSE: 5500 cGy in 20 fx SUBJECTIVE: He is doing well without any specific new complaints related to radiation treatment. Bladder pain resolved now. EXAM: KPS: 90 General Appearance: Alert and oriented. No acute distress. IMAGING/LAB RESULTS: CBC today reviewed. Platelet count 55K. Treatment chart checked: Yes Patient treatment site reviewed and verified:Yes CBCTs reviewed and current:Yes Medications started: None ASSESSMENT/PLAN: Clinically stable. Treatment-related side effects within expected parameters. Continue radiation treatment as planned. 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 COURSE: definitive and concurrent chemotherapy (Mitomycin 5-FU) AREA TREATED: Bladder CURRENT DOSE: 3025 cGy in 11 fx PLANNED DOSE: 5500 cGy in 20 fx SUBJECTIVE: He is doing well without any specific new complaints related to radiation treatment. Bladder pain resolved now. EXAM: KPS: 90 General Appearance: Alert and oriented. No acute distress. IMAGING/LAB RESULTS: CBC today reviewed. Platelet count 55K. Treatment chart checked: Yes Patient treatment site reviewed and verified:Yes CBCTs reviewed and current:Yes Medications started: None ASSESSMENT/PLAN: Clinically stable. Treatment-related side effects within expected parameters. Continue radiation treatment as planned. Luigi Banks MD Radiation Therapy - Nursing Note (OTV) PATIENT NAME: Abelardo Ivory PATIENT October 09, 2024 [facility] FACILITY/LOCATION: [place] NURSING NOTE TYPE: PROSTATE - MALE PELVIS Subjective Data Pt states his pain is much in better, not taking pain meds much at this time Additional Data Do you want to see a Pasting Inspector? No Status: Patient is male Stress Scale: On a scale of 0 to 10, what number best describes how much distress you have experienced in the past week?(0 being no distress and 10 being extreme distress) 1 Social work notified: Pt denied need to see social media manager at this time. Nursing Assessment Fatigue: increased fatigue over baseline but not altering normal activities Appetite: fair Nutritional Intake: Regular oral intake. Weight Gain/Loss: No Ambulatory weight history: Last 6 Encounter Wt Readings: Date: Wt: 09/24/2024 68 kg (150 lb) 09/06/2024 69.2 kg (152 lb 9.6 oz) 09/05/2024 69.2 kg (152 lb 8 oz) 08/29/2024 70.8 kg (156 lb) 08/16/2024 70.9 kg (156 lb 6.4 oz) 08/02/2024 70.8 kg (156 lb) Nausea:None Vomiting: None Bowel Function: normal bowel movements Erythema/Hyperpigmentation:none Desquamation:none Rash:none Skin Care: Aquaphor Skin Sensation: Within Normal Limits Focused Assessment PROSTATE - MALE PELVIS: Rectal bleeding: No. Rectal pain: No. Bladder function: painful urination. Urinary frequency (D/N): stable/1-3. the pain is much improved SIGNED by: Shreya Grace RN documented in this encounter [facility] 10-09-2024 Note HNO ID: [id number] Author: SHREYA GRACE RN Service: ? Author Type: Registered Nurse Type: Progress Notes Filed: 10/09/2024 10:02 Note Text: Radiation Therapy - Nursing Note (OTV) PATIENT NAME: Abelardo Ivory PATIENT October 09, 2024 [facility] FACILITY/LOCATION: [facility] NOTE TYPE: PROSTATE - MALE PELVIS Subjective Data Pt states his pain is much in better, not taking pain meds much at this time Additional Data Do you want to see a Pasting Inspector? No Status: Patient is male Stress Scale: On a scale of 0 to 10, what number best describes how much distress you have experienced in the past week?(0 being no distress and 10 being extreme distress) 1 Social work notified: Pt denied need to see social media manager at this time. Nursing Assessment Fatigue: increased fatigue over baseline but not altering normal activities Appetite: fair Nutritional Intake: Regular oral intake. Weight Gain/Loss: No Ambulatory weight history: Last 6 Encounter Wt Readings: Date: Wt: 09/24/2024 68 kg (150 lb) 09/06/2024 69.2 kg (152 lb 9.6 oz) 09/05/2024 69.2 kg (152 lb 8 oz) 08/29/2024 70.8 kg (156 lb) 08/16/2024 70.9 kg (156 lb 6.4 oz) 08/02/2024 70.8 kg (156 lb) Nausea:None Vomiting: None Bowel Function: normal bowel movements Erythema/Hyperpigmentation:none Desquamation:none Rash:none Skin Care: Aquaphor Skin Sensation: Within Normal Limits Focused Assessment PROSTATE - MALE PELVIS: Rectal bleeding: No. Rectal pain: No. Bladder function: painful urination. Urinary frequency (D/N): stable/1-3. the pain is much improved SIGNED by: Shreya Grace RN [facility] 10-02-2024 Note HNO ID: [id number] Author: LUIGI BANKS MD Service: ? 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 COURSE: definitive and concurrent chemotherapy (Mitomycin 5-FU) AREA TREATED: Bladder CURRENT DOSE: 1925 cGy in 7 fx PLANNED DOSE: 5500 cGy in 20 fx SUBJECTIVE: He is doing well without any specific new complaints related to radiation treatment. Bladder pain resolved now. EXAM: KPS: 90 General Appearance: Alert and oriented. No acute distress. IMAGING/LAB RESULTS: None Treatment chart checked: Yes Patient treatment site reviewed and verified:Yes CBCTs reviewed and current:Yes Medications started: None ASSESSMENT/PLAN: Clinically stable. No significant treatment-related side effects. Continue radiation treatment as planned. Luigi Banks MD [facility] 10-02-2024 Note HNO ID: [id number] Author: UNRULY DIAZ RN Service: ? Author Type: Registered Nurse Type: Progress Notes Filed: 10/02/2024 10:20 Note Text: Radiation Therapy - Nursing Note (OTV) PATIENT NAME: Abelardo Ivory PATIENT October 02, 2024 [facility] FACILITY/LOCATION: [facility] NOTE TYPE: PROSTATE - MALE PELVIS Subjective Data No complaints Additional Data Do you want to see a Pasting Inspector? No Status: Patient is male Stress Scale: On a scale of 0 to 10, what number best describes how much distress you have experienced in the past week?(0 being no distress and 10 being extreme distress) 2 Social work notified: no Nursing Assessment Fatigue: increased fatigue over baseline but not altering normal activities Appetite: good Nutritional Intake: Regular oral intake. Weight Gain/Loss: No Ambulatory weight history: Last 6 Encounter Wt Readings: Date: Wt: 09/24/2024 68 kg (150 lb) 09/06/2024 69.2 kg (152 lb 9.6 oz) 09/05/2024 69.2 kg (152 lb 8 oz) 08/29/2024 70.8 kg (156 lb) 08/16/2024 70.9 kg (156 lb 6.4 oz) 08/02/2024 70.8 kg (156 lb) Nausea:None Vomiting: None Bowel Function: normal bowel movements Erythema/Hyperpigmentation:none Desquamation:none Rash:none Skin Care: Aquaphor Skin Sensation: Within Normal Limits Focused Assessment PROSTATE - MALE PELVIS: Rectal bleeding: No. Rectal pain: No. Bladder function: no problems. Urinary frequency (D/N): same/same. 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 COURSE: definitive and concurrent chemotherapy (Mitomycin 5-FU) AREA TREATED: Bladder CURRENT DOSE: 1925 cGy in 7 fx PLANNED DOSE: 5500 cGy in 20 fx SUBJECTIVE: He is doing well without any specific new complaints related to radiation treatment. Bladder pain resolved now. EXAM: KPS: 90 General Appearance: Alert and oriented. No acute distress. IMAGING/LAB RESULTS: None Treatment chart checked: Yes Patient treatment site reviewed and verified:Yes CBCTs reviewed and current:Yes Medications started: None ASSESSMENT/PLAN: Clinically stable. No significant treatment-related side effects. Continue radiation treatment as planned. Luigi Banks MD Radiation Therapy - Nursing Note (OTV) PATIENT NAME: Abelardo Ivory PATIENT October 02, 2024 [facility] FACILITY/LOCATION: [place] NURSING NOTE TYPE: PROSTATE - MALE PELVIS Subjective Data No complaints Additional Data Do you want to see a Pasting Inspector? No Status: Patient is male Stress Scale: On a scale of 0 to 10, what number best describes how much distress you have experienced in the past week?(0 being no distress and 10 being extreme distress) 2 Social work notified: no Nursing Assessment Fatigue: increased fatigue over baseline but not altering normal activities Appetite: good Nutritional Intake: Regular oral intake. Weight Gain/Loss: No Ambulatory weight history: Last 6 Encounter Wt Readings: Date: Wt: 09/24/2024 68 kg (150 lb) 09/06/2024 69.2 kg (152 lb 9.6 oz) 09/05/2024 69.2 kg (152 lb 8 oz) 08/29/2024 70.8 kg (156 lb) 08/16/2024 70.9 kg (156 lb 6.4 oz) 08/02/2024 70.8 kg (156 lb) Nausea:None Vomiting: None Bowel Function: normal bowel movements Erythema/Hyperpigmentation:none Desquamation:none Rash:none Skin Care: Aquaphor Skin Sensation: Within Normal Limits Focused Assessment PROSTATE - MALE PELVIS: Rectal bleeding: No. Rectal pain: No. Bladder function: no problems. Urinary frequency (D/N): same/same. SIGNED by: Unruly Diaz RN documented in this encounter [facility] 09-25-2024 Telephone encounter Note Call to patient, aware the Tramadol Rx sent. He is also aware that he needs to sign a Narcotic agreement form when here tomorrow and to stop at nursing station to inquire. Also reviewed dosing and ok to alternate Tramadol with Tylenol. Reviewed not to take an extra Tylenol IF he has a fever and during the 1 hour recheck time per instructions on handout. Patient states he understands and denies further needs/concerns. Nazanin Palm RN [facility] 09-25-2024 Miscellaneous Notes Call to patient, aware the Tramadol Rx sent. He is also aware that he needs to sign a Narcotic agreement form when here tomorrow and to stop at nursing station to inquire. Also reviewed dosing and ok to alternate Tramadol with Tylenol. Reviewed not to take an extra Tylenol IF he has a fever and during the 1 hour recheck time per instructions on handout. Patient states he understands and denies further needs/concerns. Nazanin Palm RN Will make rad/onc nurse know as well. Has radiation tx tomorrow. Hermila Morse LPN He will have to sign a narcotic agreement form when he is here tomorrow. I will have one ready for him to sign. Lakeisha Rivers DO CYCLE 1/DAY 1 POST TREATMENT CALL Today's date: September 25, 2024 Treatment Regimen: 5FU/Mitomycin w/XRT C1D1 Date: 09/24/24 Patient in follow up with Dr. Banks. Needs refill on Tramadol. Requested Prescriptions Pending Prescriptions Disp Refills traMADol (ULTRAM) 50 mg tablet 14 tablet 0 Sig: Take 1 tablet by mouth every 12 hours as needed for pain for up to 7 days. Wolf Palm RN documented in this encounter [facility] 09-25-2024 Telephone encounter Note Will make rad/onc nurse know as well. Has radiation tx tomorrow. Hermila Morse LPN [facility] 09-25-2024 Telephone encounter Note He will have to sign a narcotic agreement form when he is here tomorrow. I will have one ready for him to sign. Lakeisha Rivers DO [facility] 09-25-2024 Telephone encounter Note CYCLE 1/DAY 1 POST TREATMENT CALL Today's date: September 25, 2024 Treatment Regimen: 5FU/Mitomycin w/XRT C1D1 Date: 09/24/24 Patient in follow up with Dr. Banks. Needs refill on Tramadol. Requested Prescriptions Pending Prescriptions Disp Refills traMADol (ULTRAM) 50 mg tablet 14 tablet 0 Sig: Take 1 tablet by mouth every 12 hours as needed for pain for up to 7 days. Wolf Palm RN [facility] 09-25-2024 Note HNO ID: [id number] Author: LUIGI BANKS MD Service: ? 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 COURSE: definitive and concurrent chemotherapy (Mitomycin 5-FU) AREA TREATED: Bladder CURRENT DOSE: 550 cGy in 2 fx PLANNED DOSE: 5500 cGy in 20 fx SUBJECTIVE: He is doing well without any specific new complaints related to radiation treatment. He has bladder pain since his TURBT without significant acute changes. Previous urine culture was negative for UTI. EXAM: KPS: 90 General Appearance: Alert and oriented. No acute distress. IMAGING/LAB RESULTS: None Treatment chart checked: Yes Patient treatment site reviewed and verified:Yes CBCTs reviewed and current:Yes Medications started: None ASSESSMENT/PLAN: Clinically stable. No significant treatment-related side effects. Continue radiation treatment as planned. 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 COURSE: definitive and concurrent chemotherapy (Mitomycin 5-FU) AREA TREATED: Bladder CURRENT DOSE: 550 cGy in 2 fx PLANNED DOSE: 5500 cGy in 20 fx SUBJECTIVE: He is doing well without any specific new complaints related to radiation treatment. He has bladder pain since his TURBT without significant acute changes. Previous urine culture was negative for UTI. EXAM: KPS: 90 General Appearance: Alert and oriented. No acute distress. IMAGING/LAB RESULTS: None Treatment chart checked: Yes Patient treatment site reviewed and verified:Yes CBCTs reviewed and current:Yes Medications started: None ASSESSMENT/PLAN: Clinically stable. No significant treatment-related side effects. Continue radiation treatment as planned. Luigi Banks MD Radiation Therapy - Nursing Note (OTV) PATIENT NAME: Abelardo Ivory PATIENT September 25, 2024 [facility] FACILITY/LOCATION: [facility] NOTE TYPE: PROSTATE - MALE PELVIS Subjective Data I am still having that pain when I urinated and sometimes just hits gideon Additional Data Do you want to see a Pasting Inspector? No Status: Patient is male Stress Scale: On a scale of 0 to 10, what number best describes how much distress you have experienced in the past week?(0 being no distress and 10 being extreme distress) 2 Social work notified: Pt denied need to see social media manager at this time. Nursing Assessment Fatigue: increased fatigue over baseline but not altering normal activities Appetite: good Nutritional Intake: Regular oral intake. Weight Gain/Loss: No Ambulatory weight history: Last 6 Encounter Wt Readings: Date: Wt: 09/24/2024 68 kg (150 lb) 09/06/2024 69.2 kg (152 lb 9.6 oz) 09/05/2024 69.2 kg (152 lb 8 oz) 08/29/2024 70.8 kg (156 lb) 08/16/2024 70.9 kg (156 lb 6.4 oz) 08/02/2024 70.8 kg (156 lb) Nausea:None Vomiting: None Bowel Function: normal bowel movements Erythema/Hyperpigmentation:none Desquamation:none Rash:none Skin Care: Aquaphor Skin Sensation: Within Normal Limits Focused Assessment PROSTATE - MALE PELVIS: Rectal bleeding: No. Rectal pain: No. Bladder function: painful urination. Urinary frequency (D/N): every 2-3 hours/up twice at night. SIGNED by: Shreya Grace RN documented in this encounter [facility] 09-25-2024 Note HNO ID: [id number] Author: SHREYA GRACE RN Service: ? Author Type: Registered Nurse Type: Progress Notes Filed: 09/25/2024 10:39 Note Text: Radiation Therapy - Nursing Note (OTV) PATIENT NAME: Abelardo Ivory PATIENT September 25, 2024 [facility] FACILITY/LOCATION: [place] NURSING NOTE TYPE: PROSTATE - MALE PELVIS Subjective Data I am still having that pain when I urinated and sometimes just hits gideon Additional Data Do you want to see a Pasting Inspector? No Status: Patient is male Stress Scale: On a scale of 0 to 10, what number best describes how much distress you have experienced in the past week?(0 being no distress and 10 being extreme distress) 2 Social work notified: Pt denied need to see social media manager at this time. Nursing Assessment Fatigue: increased fatigue over baseline but not altering normal activities Appetite: good Nutritional Intake: Regular oral intake. Weight Gain/Loss: No Ambulatory weight history: Last 6 Encounter Wt Readings: Date: Wt: 09/24/2024 68 kg (150 lb) 09/06/2024 69.2 kg (152 lb 9.6 oz) 09/05/2024 69.2 kg (152 lb 8 oz) 08/29/2024 70.8 kg (156 lb) 08/16/2024 70.9 kg (156 lb 6.4 oz) 08/02/2024 70.8 kg (156 lb) Nausea:None Vomiting: None Bowel Function: normal bowel movements Erythema/Hyperpigmentation:none Desquamation:none Rash:none Skin Care: Aquaphor Skin Sensation: Within Normal Limits Focused Assessment PROSTATE - MALE PELVIS: Rectal bleeding: No. Rectal pain: No. Bladder function: painful urination. Urinary frequency (D/N): every 2-3 hours/up twice at night. SIGNED by: Shreya Grace RN [facility] 09-24-2024 Telephone encounter Note This has been scheduled. Leonardo Moses [facility] 09-24-2024 Miscellaneous Notes This has been scheduled. Leonardo Storck Per Dr. Rivers, Schedule him for BMP with possible hydration this coming . Pt will be in for radiation at 0900. Please schedule for port/picc draw and possible hydration. Thank you. documented in this encounter [facility] 09-24-2024 Telephone encounter Note Per Dr. Rivers, Schedule him for BMP with possible hydration this coming . Pt will be in for radiation at 0900. Please schedule for port/picc draw and possible hydration. Thank you. [facility] 09-24-2024 Telephone encounter Note error [facility] 09-24-2024 Miscellaneous Notes error documented in this encounter [facility] 09-18-2024 History of Presen t illness Narrative [...] PATIENT PRESENTS WITH AN IMPLANTABLE OR ATTACHED RAIL OPERATIONS CONTROLLER: No RADIOLOGY DEPARTMENT: CT; Exam(s) Completed: Abdomen/Pelvis PERIPHERAL IV DATA: Not applicable SIGNED BY: RT Lenin(R) September 18, 2024 1:46 PM documented in this encounter [facility] 09-18-2024 Note HNO ID: [id number] Author: SAMINA NUNEZ RT(R) Service: ? Author Type: Maintenance Shop Technician Type: Progress Notes Filed: 09/18/2024 13:47 Note [...] PATIENT PRESENTS WITH AN IMPLANTABLE OR ATTACHED RAIL OPERATIONS CONTROLLER: No RADIOLOGY DEPARTMENT: CT; Exam(s) Completed: Abdomen/Pelvis PERIPHERAL IV DATA: Not applicable SIGNED BY: RT Lenin(Manoj) September 18, 2024 1:46 PM [facility] 09-12-2024 Note HNO ID: [id number] Author: MATTHEW GU RN Service: ? Author Type: Registered Nurse Type: Progress Notes Filed: 09/12/2024 16:33 Note Text: This visit was completed by phone. Materials Handling Coordinator Pre Chemo Patient identified by name and date of . YES Confirmed date and time for chemotherapy ? YES Other appointments (labs, imaging) discussed? YES Discussed where to park (house mover), charge for parking YES Discussed where to [...] YES Other topics discussed, interventions needed: n/a Matthew Gu RN ONCOLOGY PATIENT EDUCATION NOTE TOPIC: [...] Spent: 50 minutes REFERRAL (RECOMMENDATION): Social Work Matthew Gu RN [facility] 09-07-2024 History of Presen t illness [...] PATIENT PRESENTS WITH AN IMPLANTABLE OR ATTACHED RAIL OPERATIONS CONTROLLER: No RADIOLOGY DEPARTMENT: Ultrasound PERIPHERAL IV DATA: Not applicable SIGNED BY: Sydni Sanchez RDMS RVT September 07, 2024 2:59 PM documented in this encounter [facility] 09-07-2024 Note HNO ID: [id number] Author: SYDNI SANCHEZ RDMS Service: ? Author Type: Data Architect Manager Type: Progress Notes Filed: 09/07/2024 14:59 Note [...] PATIENT PRESENTS WITH AN IMPLANTABLE OR ATTACHED RAIL OPERATIONS CONTROLLER: No RADIOLOGY DEPARTMENT: Ultrasound PERIPHERAL IV DATA: Not applicable SIGNED BY: Sydni Sanchez RDMS RVT September 07, 2024 2:59 PM [facility] 09-07-2024 Note HNO ID: [id number] Author: UNRULY DIAZ RN Service: ? Author Type: Registered Nurse Type: Progress Notes Filed: 09/07/2024 10:59 Note Text: Radiation Therapy - Patient Education Note PATIENT NAME: Abelardo Ivory PATIENT September 07, 2024 [facility] FACILITY/LOCATION: [place] READINESS TO LEARN Cognitive Ability: Alert and [...] phone list, Bladder function, Diarrhea, Fatigue, and [place] instructions, XRT sheet and Aquaphor handout. Referral (recommendation): None, Pt denied 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 Patient has an Onbody or Implanted device: No Signed by: Unruly Diaz RN [facility] 09-07-2024 History of Presen t illness Narrative Radiation Therapy - Patient Education Note PATIENT NAME: Abelardo Ivory PATIENT September 07, 2024 [facility] FACILITY/LOCATION: [place] READINESS TO LEARN Cognitive Ability: Alert and [...] 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 Patient has an Onbody or Implanted device: No Signed by: Unruly Diaz RN documented in this encounter [facility] 09-07-2024 History of Presen t illness Narrative ABELARDO IVORY [id number] 09/07/2024 [facility] Department of Radiation Oncology [facility] RADIATION ONCOLOGY SIMULATION NOTE DATE OF SIMULATION: [...] M.D./jase 51:56 PM documented in this encounter [facility] 09-07-2024 History of Presen t illness Narrative ABELARDO IVORY [id number] 09/07/2024 [facility] - Department of Radiation Oncology Treatment Planning Note For reasons stated in the consult note, Abelardo Iovry is a candidate for radiation therapy. Based [...] M.D. 52:21 PM documented in this encounter [facility] 09-07-2024 Note HNO ID: [id number] Author: LUIGI BANKS MD Service: Radiation Oncology Author Type: Physician Type: Progress Notes Filed: 09/14/2024 13:56 Note Text: ABELARDO IVORY [id number] 09/07/2024 [facility] Department of Radiation Oncology [facility] RADIATION ONCOLOGY SIMULATION NOTE DATE OF SIMULATION: [...] Electronically Signed Luigi Banks M.D./ 51:56 PM [facility] 09-07-2024 Note HNO ID: [id number] Author: LUIGI BANKS MD Service: Radiation Oncology Author Type: Physician Type: Progress Notes Filed: 09/18/2024 14:21 Note Text: ABELARDO IVORY [id number] 09/07/2024 [facility] [place] [facility] - Department of Radiation Oncology Treatment Planning [...] Electronically Signed Luigi Banks M.D. 52:21 PM [facility] 09-06-2024 Telephone encounter Note See routing comment below. I will take care of the PICC line when appropriate to schedule. The IR order that's in is for a nephrostomy tube. Elizabeth Ludwig LPN [facility] 09-06-2024 Miscellaneous Notes See routing comment below. I will take care of the PICC line when appropriate to schedule. The IR order that's in is for a nephrostomy tube. Elizabeth Ludwig LPN Received call from [facility] stating they are unable to insert picc with order placed. She states they need a Tunneled Picc ordered and [facility] IR would schedule that procedure. Absolutely- will add antegrade stent to procedure if IR is able Stacy Gauthier MD Scheduled US for 09/07 PICC LINE 09/10 @ 10 [place] [facility] Lab results from today show significant elevation of serum creatinine and BUN. Ultrasound stat. Also scheduled for potential nephrostomy tube placement at [facility] or [place]. AVS 09/05 Labs today. done Referral to [...] about 8 weeks. documented in this encounter [facility] 09-06-2024 Telephone encounter Note Received call from [facility] stating they are unable to insert picc with order placed. She states they need a Tunneled Picc ordered and [facility] would schedule that procedure. [facility] Work Phone: 09-06-2024 Note HNO ID: [id number] Author: LUIGI BANKS MD Service: ? Author Type: Physician Type: Progress Notes Filed: 09/14/2024 11:12 Note Text: Radiation Oncology - New Patient/Consult Note PATIENT NAME: Abelardo Ivory PATIENT REQUESTING PROVIDER: Dr. Lakeisha Rivers DIAGNOSIS: Clinical stage II, cT2 cN0, [...] Take 5 mg by mouth once daily. vljikjebtfe-clsjmadwp-dyjfywfk (TRELEGY ELLIPTA) 200-62.5-25 mcg inhalation powder Inhale [...] for prolonged bleedin (more content not included)... [facility] 09-06-2024 Note HNO ID: [id number] Author: UNRULY DIAZ RN Service: ? Author Type: Registered Nurse Type: Progress Notes Filed: 09/14/2024 11:12 Note Text: Radiation Therapy - Nursing Note (Consult) PATIENT NAME: Abelardo Ivory PATIENT September 06, 2024 [facility] FACILITY/LOCATION: [place] Chief Complaint: consult Reason for visit: Consult. Referring physician: Internal provider Dr Rivers Subjective Data: see pain assessment Additional Data Do you want to see a Pasting Inspector? No Are you interested in information about fertility? No Status: Patient is male Stress Scale: On a scale of 0 to 10, what number best describes how much distress you have experienced in the past week?(0 being no distress and 10 being extreme distress) 3 Social work notified: no SIGNED by: Unruly Diaz RN [facility] 09-06-2024 Telephone encounter Note Absolutely- will add antegrade stent to procedure if IR is able Stacy Gauthier MD [facility] Work Phone: 09-06-2024 Telephone encounter Note Spoke with Dr. Rivers office and they stated for you to send message to dr. Rivers and have him add it on to his order and they will be sure it gets scheduled. Earnestine Bass [facility] 09-06-2024 Miscellaneous Notes Spoke with Dr. Rivers [...] Stacy Gauthier MD documented in this encounter [facility] 09-06-2024 Telephone encounter Note Scheduled US for 09/07 PICC LINE 8/4 @ 10 [facility] [place] Gutierres [facility] 09-06-[address] Rivers ordered a left perc tube placement- can you find out where he's having it done, want to add on left antegrade stent placement at same time- thx Stacy Gauthier MD [facility] Work Phone: 09-05-2024 Telephone encounter Note Lab results from today show significant elevation of serum creatinine and BUN. Ultrasound stat. Also scheduled for potential nephrostomy tube placement at [facility] or [place]. [facility] 09-05-2024 Telephone encounter Note Met with patient and introduced myself. Patient was given a My Journey binder with chemocare information, office contact information, thermometer, and additional chemotherapy resource booklets. Patient aware this nurse will review on scheduled appointment date. Matthew Gu RN [facility] 09-05-2024 Miscellaneous Notes Met with patient and introduced myself. Patient was given a My Journey binder with chemocare information, office contact information, thermometer, and additional chemotherapy resource booklets. Patient aware this nurse will review on scheduled appointment date. Matthew Gu RN documented in this encounter [facility] 09-05-2024 Telephone encounter Note AVS 09/05 Labs [...] OV with me in about 8 weeks. [facility] 09-05-2024 Note HNO ID: [id number] Author: LAKEISHA RIVERS DO Service: ? Author Type: Physician Type: Progress Notes Filed: 09/05/2024 17:01 Note Text: Patient self-referred for muscle invasive bladder cancer. HPI: The patient is a 74-year-old male with a past medical history as outlined below. Developed gross hematuria and noticed debris in urine. Saw Dr. Mcclendon. Had TURBT with chemo flush. Path below. Referred to [facility] b/c patient declined cystectomy. Per Dr. [...] ppd since age 15 years Pathology from [facility] reviewed at main campus: A. Urinary bladder, transurethral resection: - Invasive [...] cough. Clear sputum. Sees Dr. Zuñiga at [facility]. Smokes about 1/2 ppd. No alcohol. PAST [...] Take 5 mg by mouth once daily. dqoilmhpgmb-gguetbdzj-uumbcdle (TRELEGY ELLIPTA) 200-62.5-25 mcg inhalation powder Inhale [...] sedation, infusion, injec (more content not included)... [facility] 09-05-2024 History of Presen t illness Narrative Patient self-referred for muscle invasive bladder cancer. HPI: The patient is a 74-year-old male with a past medical history as outlined below. Developed gross hematuria and noticed debris in urine. Saw Dr. Mcclendon. Had TURBT with chemo flush. Path below. Referred to [facility] b/c patient declined cystectomy. Per Dr. [...] ppd since age 15 years Pathology from [facility] reviewed at [facility]: A. Urinary bladder, transurethral resection: - [...] cough. Clear sputum. Sees Dr. Zuñiga at [facility]. Smokes about 1/2 ppd. No alcohol. PAST [...] Take 5 mg by mouth once daily. hhlrphubunh-tplnoiljw-tbdcmmzh (TRELEGY ELLIPTA) 200-62.5-25 mcg inhalation powder Inhale [...] use: No Drug use: No Worked for [employer]. [employer] lines. FAMILY HISTORY Problem Relation Age of Onset [...] Plan: -Labs today. -Referral to Dr. Banks. -PICC line for treatment. -CBC/CMP on day 1. CBC on days 8 and 15. CBC and CMP on day 22. Office visit for cycle #2, week 4. -Plan referral back to Dr. Gauthier about 4 to 6 weeks after completing therapy for repeat cystoscopy. I spent a total of 50 minutes on the date of the service which included preparing to see the patient, mfsv-lr-ampj patient care, completing clinical documentation, obtaining and/or reviewing separately obtained history, performing a medically appropriate examination, counseling and educating the patient/family/caregiver, ordering medications, tests, or procedures, communicating with other HCPs (not separately reported), and communicating results to the patient/family/caregiver. Lakeisha Rivers DO documented in this encounter [facility] 08-29-2024 Telephone encounter Note Returned call to Abelardo Ivory regarding establishing care at [facility]. Contacted [facility] and spoke with Saira in hem/onc and she was able to schedule Darrel for: 09/05/2024 @ 2PM with Dr. Lakeisha Rivers. All questions addressed. Karen KIRBY, RN Specialty Materials Handling Coordinator [facility] 08-29-2024 Miscellaneous Notes Returned call to Abelardo Ivory regarding establishing care at [facility]. Contacted [facility] and spoke with Saira in hem/onc and she was able to schedule Darrel for: 09/05/2024 @ 2PM [address] Dr. Lakeisha Rivers. All questions addressed. Karen KIRBY, RN Specialty Materials Handling Coordinator Abelardo Ivory is calling Codey Christianson MD today regarding Materials Handling Coordinator - Other Patient wants to have his radiation locally at the [facility] in [place]. [place] told him they need information from Dr. Christianson to make sure they have the treatment he needs/getting. Can someone call the patient back Patient has been identified by name and birthdate. Requesting response back: [phone] (home) [phone] (cell) Tabitha Hayes August 29, 2024 documented in this encounter [facility] 08-29-2024 Telephone encounter Note Abelardo Maria Ines Ivory is calling Codey Christianson MD today regarding Materials Handling Coordinator - Other Patient wants to have his radiation locally at the [facility] in [place]. [place] told him they need information from Dr. Christianson to make sure they have the treatment he needs/getting. Can someone call the patient back Patient has been identified by name and birthdate. Requesting response back: [phone] (home) [phone] (cell) Tabitha Hayes August 29, 2024 [facility] 08-29-2024 Note HNO ID: [id number] Author: STACY GAUTHIER MD Service: ? Author [...] (no units) Date Value 02/06/2019 Negative Specific F[place], Ur (no units) Date Value 02/06/2019 1.017 [...] Take 5 mg by mouth once daily. ewmwmdoddxq-vmlhhepoa-atofagic (TRELEGY ELLIPTA) 200-62.5-25 mcg inhalation powder Inhale [...] Assessment and Delmi (more content not included)... [facility] 08-29-2024 History of Presen t illness [...] (no units) Date Value 02/06/2019 Negative Specific [place], Ur (no units) Date Value 02/06/2019 1.017 [...] Take 5 mg by mouth once daily. vtcyzqzwips-xhnmfjrpo-rpctehco (TRELEGY ELLIPTA) 200-62.5-25 mcg inhalation powder Inhale [...] T2 [facility] 07/26/2024 Scr 1.5 06/07/2024 TURBT ([facility]) 01/01/2022 Scr 2.6 Assessment and Plan: CRF- pt with chronic RI, latest eGFR 47 Bladder cancer- s/p TURBT in [place] (?? urologist), on repeat cysto I saw large amount of necrotic tissue starting at the bladder involving the majority of the trigone -pt with known T2 dx, told him that [facility] is neoadjuvant chemo followed by radical cystectomy and they understand - he has seen oncology, Dr Christianson @ [facility] and per his notes pt is [...] Pyridium sent in) documented in this encounter [facility] 08-24-2024 Telephone encounter Note CASE [id number]: Spoke with patient, states he saw urology this week and stent was placed. Patient states he has decided not to do the study and would like to follow in [place] for chemo if possible. Aware Dr Christianson will be notified. [facility] 08-24-2024 Miscellaneous Notes CASE [id number]: Spoke with patient, states he saw urology this week and stent was placed. Patient states he has decided not to do the study and would like to follow in [place] for chemo if possible. Aware Dr Christianson will be notified. documented in this encounter [facility] 08-22-2024 Telephone encounter Note CASE [id number]: Left message on voicemail for pt to return call [facility] 08-22-2024 Miscellaneous Notes CASE [id number]: Left message on voicemail for pt to return call documented in this encounter [facility] 08-21-2024 Telephone encounter Note Unable to find left orifice, pt asymptomatic and only mild hydro on CT so may be draining. To have XRT/immunoTx @ [facility] - check CT flank and blood work mid Sep to assess hydro, if worse then will need PNT (discussed with dtr)- we can review results on phone as they live in [place] Stacy Gauthier MD [facility] 08-21-2024 Miscellaneous Notes Unable to find left orifice, pt asymptomatic and only mild hydro on CT so may be draining. To have XRT/immunoTx @ [facility] - check CT flank and blood work mid Sep to assess hydro, if worse then will need PNT (discussed with dtr)- we can review results on phone as they live in [place] Stacy Gauthier MD documented in this encounter [facility] 08-21-2024 Note HNO ID: [id number] Author: ABIGAIL ZHANG APRN.PANTS MAKER Service: Anesthesiology Author Type: Nurse Promotion Specialist Type: Anesthesia Procedure Notes Filed: 08/21/2024 15:15 Note Text: ANESTHESIOLOGY PROCEDURE NOTE Airway General Information Procedure Start Time/Medication Administration: 08/21/2024 3:08 PM Procedure End Time: 08/21/2024 3:08 PM Patient location during procedure: OR Timeout Performed Pre-procedure: timeout performed Consent Obtained: Yes Patient identity confirmed: arm band Staffing Anesthesiologist: Kaleigh Benites MD PANTS MAKER: Abigail Zhang APRN.PANTS MAKER Performed by: PANTS MAKER Indications and Patient Condition Indications for airway management: anesthesia and airway protection Preoxygenated: yes anesthesia circuit Patient position: sniffing Method: asleep Final Airway Details Final airway type: supraglottic airway Number of attempts at approach: 1 Ventilation between attempts: BVM Final Supraglottic Airway: i-gel Size 5 Seal Adequate: yes SIGNATURE: Abigail Zhang APRN.PANTS MAKER PATIENT NAME: Abelardo Ivory DATE: August 21, 2024 TIME: 3:14 PM CSN: [id number] [facility] 08-16-2024 Instructions Marisela Pichardo APRN.RECORDS MANAGEMENT MANAGER - 08/16/2024 10:39 AM EDT PATIENT PREOPERATIVE INSTRUCTIONS Your surgeon has scheduled you for your procedure at this surgery center: [facility] [phone] [address] [id number] Please enter through the main entrance, and [...] 81 mg chewable tablet Follow surgeon's instructions. yqbohofffjp-pmasmmezh-ixryjwhj (TRELEGY ELLIPTA) 200-62.5-25 mcg inhalation powder Continue [...] surgery. - YOU MUST HAVE A RESPONSIBLE GENERAL LABOR FORKLIFT OPERATOR TAKE YOU HOME. A DAY CARE ASSISTANT, CAB OR UBER GENERAL LABOR FORKLIFT OPERATOR CANNOT BE MADE A RESPONSIBLE GENERAL LABOR FORKLIFT OPERATOR. - We recommend that a responsible person [...] the surgery center above. Visitors to any [facility] facility: - An individual who is sick should not visit. - Visitors to patients with COVID-19 must follow these guidelines, which include wearing a mask, eye protection, gown and gloves. [facility]- Visitations are: - Visitation hours are from [...] Advance Directive, please fax a copy to [phone] or Marce GARCIA at [phone] or email to for it to be [...] and scanned into your chart that day. 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 Limited study. Essential hypertension Assessment: taking taking [...] Take 5 mg by mouth once daily. ytmktcspkon-wnbadfcsc-knkobnnv (TRELEGY ELLIPTA) 200-62.5-25 mcg inhalation powder Sig: [...] a bladder resection in June 2023 at [facility]. Today, he denies pain, rating 0 [...] 5 mg by mouth once daily. Yes jzisqzdwqqi-rambonbio-szuznxxu (TRELEGY ELLIPTA) 200-62.5-25 mcg inhalation powder Inhale [...] or any previous visit (from the past 43855 hours). Implantable Devices: None Assessment/Plan Malignant neoplasm [...] which included preparing to see the patient, dypv-eg-fyzi patient care, completing clinical documentation, obtaining and/or reviewing separately obtained history, performing a medically appropriate examination, and counseling and educating the patient/family/caregiver. 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 yrsassjtupx-nhzaujlld-abnvgxjf (TRELEGY ELLIPTA) 200-62.5-25 mcg inhalation powder Sig: [...] Immunization Status Current Care Gaps Covid-19 Vaccine (2023- season) Never done No completion, postpone, frequency change, or communication history exists for this topic. CHIEF COMPLAINT: Urinary bladder cancer HPI: Patient reports history of urinary bladder cancer. He reports he had a bladder resection in June 2023 at [facility]. Today, he denies pain, rating 0 [...] 5 mg by mouth once daily. Yes hbczsegfxwf-yedbgilhc-srpippbk (TRELEGY ELLIPTA) 200-62.5-25 mcg inhalation powder Inhale [...] or any previous visit (from the past 92662 hours). Implantable Devices: None Assessment/Plan Malignant neoplasm [...] which included preparing to see the patient, nrsk-xc-kcxj patient care, completing clinical documentation, obtaining and/or reviewing separately obtained history, performing a medically appropriate examination, and counseling and educating the patient/family/caregiver. SIGNATURE: Marisela Pichardo APRN.CNP PATIENT NAME: Abelardo Ivory DATE: August 16, 2024 TIME: 7:23 AM PAGER/CONTACT #: documented in this encounter [facility] 08-07-2024 Note HNO ID: [id number] Author: KAREN VERDUGO LPN Service: ? Author Type: LICENSED NURSE Type: Progress Notes Filed: 08/07/2024 14:06 Note Text: Additional intake questions: Has the patient had fever, nausea, vomiting, diarrhea, constipation, fatigue for > 1 week? No Does the patient have a decreased appetite? No Does patient want to see a Pasting Inspector? No (yes to any of above refer patient to schedulers for dietitian appointment) ) Does patient have any new or increased numbness or tingling of extremities? No Is patient interested in fertility information? No Does patient need any prescription refills? No Does patient have an advanced directive in place? Yes, copies are in [employer] Electronically Signed By: Karen Verdugo LPN [facility] 08-07-2024 History of Presen t illness Narrative Additional intake questions: Has the patient had fever, nausea, vomiting, diarrhea, constipation, fatigue for > 1 week? No Does the patient have a decreased appetite? No Does patient want to see a Pasting Inspector? No (yes to any of above refer patient to schedulers for dietitian appointment) ) Does patient have any new or increased numbness or tingling of extremities? No Is patient interested in fertility information? No Does patient need any prescription refills? No Does patient have an advanced directive in place? Yes, copies are in Debte[employer] [facility] INITIAL CONSULT NOTE Date of Service: [...] which included preparing to see the patient, xtps-qe-wlpi patient care, completing clinical documentation, obtaining and/or reviewing separately obtained history, performing a medically appropriate examination, counseling and educating the patient/family/caregiver, ordering medications, tests, or procedures, communicating with other HCPs (not separately reported), independently interpreting results (not separately reported), communicating results to the patient/family/caregiver, and care coordination (not separately reported). Codey Christianson MD Staff Physician Department of Hematology and [place] [address] Additional intake questions: Has the patient had fever, nausea, vomiting, diarrhea, constipation, fatigue for > 1 week? No Does the patient have a decreased appetite? No Does patient want to see a Pasting Inspector? No (yes to any of above refer patient to schedulers for dietitian appointment) ) Does patient have any new or increased numbness or tingling of extremities? No Is patient interested in fertility information? No Does patient need any prescription refills? No Does patient have an advanced directive in place? Yes, copies are in Epic Additional intake questions: Has the patient had fever, nausea, vomiting, diarrhea, constipation, fatigue for > 1 week? No Does the patient have a decreased appetite? No Does patient want to see a Pasting Inspector? No (yes to any of above refer patient to schedulers for dietitian appointment) ) Does patient have any new or increased numbness or tingling of extremities? No Is patient interested in fertility information? No Does patient need any prescription refills? No Does patient have an advanced directive in place? Yes, copies are in [employer] documented in this encounter [facility] 08-03-2024 Telephone encounter Note CASE [id number]: Spoke [...] a call back after 10 of August holiday. Patient will need repeat TURBT at [facility] due to previously being done at [facility]. [facility] 08-03-2024 Miscellaneous Notes CASE 9822: Spoke with [...] a call back after 10 of August holiday. Patient will need repeat TURBT at [facility] due to previously being done at [facility]. documented in this encounter [facility] 08-02-2024 History of Presen t illness Narrative [...] (no units) Date Value 02/06/2019 Negative Specific [place], Ur (no units) Date Value 02/06/2019 1.017 [...] eGFR 47 Bladder cancer- s/p TURBT in [place] (?? urologist) pt with T2 dx, told him he needs neoadjuvant chemo (has already seen oncology, Dr Christianson @ [facility]) followed by radical cystectomy; they are not sure of the treatment plan but will need to see Urology @ [facility] if desires cystectomy Left hydro- pt [...] proceed Schedule cysto, TURBT, left stent @ [facility] documented in this encounter [facility] 08-02-2024 Note HNO ID: [id number] Author: STACY GAUTHIER MD Service: ? Author [...] (no units) Date Value 02/06/2019 Negative Specific [place], Ur (no units) Date Value 02/06/2019 1.017 [...] CT c/a/p mild (more content not included)... [facility] 07-31-2024 History of Presen t illness [...] PATIENT PRESENTS WITH AN IMPLANTABLE OR ATTACHED RAIL OPERATIONS CONTROLLER: No ALLERGIES: Reviewed and unchanged CONTRAST ALLERGY: [...] TIME: 2:25 PM documented in this encounter [facility] 07-31-2024 Note HNO ID: [id number] Author: SAMINA NUNEZ RT(R) Service: ? Author Type: Maintenance Shop Technician Type: Progress Notes Filed: 07/31/2024 14:26 Note [...] PATIENT PRESENTS WITH AN IMPLANTABLE OR ATTACHED RAIL OPERATIONS CONTROLLER: No ALLERGIES: Reviewed and unchanged CONTRAST ALLERGY: [...] CT; Exam(s) Completed: Chest Abdomen Pelvis SIGNATURE: Samina Miller RT(R) PATIENT NAME: Abelardo Ivory DATE: July 31, 2024 TIME: 2:25 PM [facility] 07-26-2024 Note HNO ID: [id number] Author: FARHEEN VALENTINE RN Service: ? Author [...] Time of Presentation: 1020 Farheen Sommers RN [facility] 07-26-2024 History of Presen t illness Narrative [...] Farheen Sommers RN documented in this encounter [facility] 07-26-2024 Note HNO ID: [id number] Author: CODEY CHRISTIANSON MD Service: ? Author Type: Physician Type: Progress Notes Filed: 08/07/2024 14:06 Note Text: [facility] INITIAL CONSULT NOTE Date of Service: [...] which included preparing to see the patient, eeny-si-pxdn patient care, completing clinical documentation, obtaining and/or reviewing separately obtained history, performing a medically appropriate examination, counseling and educating the patient/family/caregiver, ordering medications, tests, or procedures, communicating with other HCPs (not separately reported), independently interpreting results (not separately reported), communicating results to the patient/family/caregiver, and care coordination (not separately reported). Codey Christianson MD Staff Physician Department of Hematology and Medical Oncology [facility] (more content not included)... [facility] 07-26-2024 Note HNO ID: [id number] Author: KAREN VERDUGO LPN Service: ? Author Type: LICENSED NURSE Type: Progress Notes Filed: 08/07/2024 14:06 Note Text: Additional intake questions: Has the patient had fever, nausea, vomiting, diarrhea, constipation, fatigue for > 1 week? No Does the patient have a decreased appetite? No Does patient want to see a Pasting Inspector? No (yes to any of above refer patient to schedulers for dietitian appointment) ) Does patient have any new or increased numbness or tingling of extremities? No Is patient interested in fertility information? No Does patient need any prescription refills? No Does patient have an advanced directive in place? Yes, copies are in Epic Electronically Signed By: Karen Verdugo LPN [facility] 07-26-2024 Note HNO ID: [id number] Author: KAREN VERDUGO LPN Service: ? Author Type: LICENSED NURSE Type: Progress Notes Filed: 08/07/2024 14:06 Note Text: Additional intake questions: Has the patient had fever, nausea, vomiting, diarrhea, constipation, fatigue for > 1 week? No Does the patient have a decreased appetite? No Does patient want to see a Pasting Inspector? No (yes to any of above refer patient to schedulers for dietitian appointment) ) Does patient have any new or increased numbness or tingling of extremities? No Is patient interested in fertility information? No Does patient need any prescription refills? No Does patient have an advanced directive in place? Yes, copies are in Epic Electronically Signed By: Karen Verdugo LPN [facility] 06-28-2024 Note [facility] Medical Records Department [address] [place] [id number] Discharge Summary 06/28/24 0648 MR#: [id number] Acct: [id number] Name: ABELARDO IVORY Rep #: [id number] : 1950 74 From: Jose J Mcclendon MD PCP: Dr. Padmini Carrasco MD Status:ADM NILO Location: [facility] [id number] Providers Date of Admission: 06/27/24 Date of [...] 80.8 H, Lymph % (Auto) 11.9 L, [place] % (Auto) 7.0, Eos % (Auto) 0.0, [...] Discharge instructions: No Please Follow Up With: Jose J Mcclendon MD When: Call [phone] for an appointment Meaningful Use Info Meaningful [...] Visit: Resection of bladder tumor Attending Provider: Jose J Mcclendon Primary Care Provider: Padmini Carrasco Instructions [...] Padmini Carrasco MD [Primary Care Provider] - Jose J Mcclendon MD [Med Staff - Active Staff] - Disp (more content not included)... [facility] 06-27-2024 Note [facility] Medical Records Department [address] [place] [address] History Physical Exam 06/27/24 0711 MR#: [id number] Acct: [id number] Name: ABELARDO IVORY Rep #: [id number] : 1950 74 From: Jose J Mcclendon MD PCP: Dr. Padmini Carrasco MD Status:[facility] Location: [place] [address] HPI - General General Date of Service: 06/27/24 Chief Complaint: Bladder tumor HPI Narrative ABELARDO IVORY, is a 74 M who presents for transurethral resection of a bladder tumor and instillation of Mitomycin-C [facility] Medical History Wears dentures Wears glasses Bruising Easy bruising High cholesterol Smoker Shortness of breath on exertion History of echocardiogram Cardiology follow-up encounter Stage 3b chronic kidney disease (CKD) Thrombocytopenia Chronic kidney insufficiency Pleural effusion Secondary pulmonary 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 Padmini Carrasco MD; Dr. Jose J Mcclendon MD Signed [facility] 06-22-2024 Radiology Diagnostic study note [facility] Imaging Services [address] [place] [address] Abdomen/Pelvis WITH Contrast MR#: [id number] Acct: [id number] Name: ABELARDO IVORY Rep #: [id number] : 1950 M 74 From: Moses Briseno MD PCP: Dr. Padmini Carrasco MD Status: REG CLI Study:Abdomen/Pelvis WITH Contrast Date of Ex am: 06/21/24 Exam# [id number] Ordering Dr: Bhargavi Mcclendon MD PROCEDURE: ABDOMEN/PELVIS [...] Calcified hepatic and splenic granulomas. Reading Location: [facility] CC: Dr. Padmini Carrasco MD; Dr. 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 June 19, 2024 8:36am Essential hypertension June 19, 2024 8:36am History of aortic valve replacement February 12, 2019June 19, 2024 8:36am Hyperlipidemia June 19, 2024 8:36am Smoking greater than 40 pack years June 19, 2024 8:36am Pre-operative cardiovascular examination acute August 30, 2024 7:53am Abdominal aortic aneurysm (AAA) chronic August 30, 2024 7:53am Atherosclerotic heart disease of chitim[place] coronary artery without angina pectoris August 30, 2024 7:53am Essential hypertension August 30, 2024 7:53am History of aortic valve replacement February 12, 2019August 30, 2024 7:53am Hyperlipidemia August 30, 2024 7:53am Smoking greater than 40 pack years August 30, 2024 7:53am [employer] Work Phone: 1(126) 330-736005-13-2025 Evaluation note* Diagnosis Onset Date Resolution Status Admit Date Pre-operative cardiovascular examination acute June 19, 2024 8:36am Abdominal aortic aneurysm (AAA) chronic June 19, 2024 8:36am Atherosclerotic heart diseas e of [place] coronary artery without angina pectoris june 8:36am Essential hypertension chronic 2024 8:36am History of aortic valve replacement February 12, 2019June 19, 2024 8:36am Hyperlipidemia June 19, 2024 8:36am Smoking greater than 40 pack years June 19, 2024 8:36am Abdominal aortic aneurysm (AAA) chronic August 30, 2024 7:53am Atherosclerotic heart diseas e of [place] coronary artery without angina pectoris august 7:53am Essential hypertension chronic 2024 7:53am History of aortic valve replacement February 12, 2019August 30th, 202 5 7:53am Hyperlipidemia chronic August 30, 2024 7:53am Smoking greater than 40 pack years chronic August 30, 2024 7:53am [facility] Work Phone: 1(471) 689-940404-09-2025 Radiology Diagnostic study note [facility] Imaging Services [address] [place] [address] Abdomen/Pelvis without Cont MR#: [id number] Acct: [id number] Name: ABELARDO IVORY Rep #: [id number] : 1950 M 74 From: Diana Huynh MD PCP: Dr. 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: Signed [facility]02-14-2025 Evaluation note* Diagnosis Onset Date Resolution Status Admit Date COPD (chronic obstructive pulmonary disease) chronic March 12:36pm Smoking greater than 40 pack years chronic March 23 025 12:36pm [facility] Work Phone: 1(261) 667-122402-14-2025 Evaluation note* Diagnosis Onset Date Resolution Status Admit Date COPD (chronic obstructive pulmonary disease) chronic March 12:36pm Smoking greater than 40 pack years chronic March 23 025 12:36pm Pre-operative cardiovascular examination acute June 19, 2024 8:36am Abdominal aortic aneurysm (AAA) chronic June 19, 2024 8:36am Atherosclerotic heart disease of [place] coronary artery without angina pectoris chronic June 19, 2024 8:36am Essential hypertension chronic 2024 8:36am History of aortic valve replacement February 12, 2019 chronic June 19, 2024 8:36am Hyperlipidemia chronic June 19, 2024 8:36am Smoking greater than 40 pack years chronic June 19, 2024 8:36am [facility] Work Phone: 1(464) 353-726112-26-2024 Evaluation note* Diagnosis Onset Date Resolution Status Admit Date S/P inguinal hernia repair acute February 02, 2024 8:27am COPD (chronic obstructive pulmonary disease) chronic March 12:36pm Smoking greater than 40 pack years chronic March 23 025 12:36pm [facility] Work Phone: 1(971) 939-245912-11-[address] [facility] Medical Records Department [address] [place] [address] History Physical Exam 01/18/24 1005 MR#: [id number] Acct: [id number] Name: ABELARDO IVORY Rep #: [id number] : 1950 73 From: Marquise Barillas MD PCP: Dr. Padmini Carrasco MD Status:[facility] Location: [place] [address] History and Physical Date of Admission: 01/18/24 [...] Diagnoses S/P inguinal hernia repair Z98.890; Z87.19 [facility] Medical History Wears dentures Wears glasses Bruising Easy bruising High cholesterol Smoker Shortness of breath on exertion History of echocardiogram Cardiology follow-up encounter Stage 3b chronic kidney disease (CKD) Thrombocytopenia Chronic kidney insufficiency Pleural effusion Secondary pulmonary arterial hypertension Atherosclerotic heart disease of [place] coronary artery without angina pectoris Intention tremor [...] to 8 weeks. Marquise Barillas MD Pager: [facility] [address] [place] [address], [place] [address] Office: I have examined the patient and the H P has been reviewed. There are no clinical changes since date of exam. The patient presents for his left sided inguinal hernia repair. The right side was repaired 2 months ago. I have reexplained the risks of the procedure and he understands and is wanted proceed. Marquise Barillas MD Pager: [facility] [address] [place] [address] Outpatient [place], [address] [place] [address] Office: 01/18/24 1005 Cosigner Signature (if applicable): CC: Dr. Marquise Barillas MD; Dr. Padmini Carrasco [facility] [facility] Medical Records Department [address] [place] [address] History Physical Exam 11/09/23 0950 MR#: [id number] Acct: [id number] Name: ABELARDO IVORY Rep #: [id number] : 1950 73 From: Marquise Barillas MD PCP: Dr. Padmini Carrasco MD [place] [place]: [place] [address] History and Physical Date of Admission: 11/09/23 [...] you fallen in the past year?: No [facility] Medical History Stage 3b chronic kidney disease (CKD) Thrombocytopenia Chronic kidney insufficiency Pleural effusion Secondary pulmonary arterial hypertension Atherosclerotic heart disease of [place] coronary artery without angina pectoris Intention tremor [...] No headache(s), No lack (more content not included)...[facility]04-21-2023 Progress note Author Tonia Jenkins [facility] May 28, 2022 11:31am Note Date/Time May 28, 2022 11: 18am [facility] [address] [place] [address] Progress Note - Wound Care 05/28/22 1116 MR#: [id number] Acct: [id number] Name: ABELARDO IVORY Rep #:[id number] 06 : 1950 72 From: Tonia ACUNA PCP: Dr. Ezekiel Carrasco MD Status: REG R Location: History of Present Illness Date of Service: 05/28/22 Chief Complaint: Left wrist wound Multiple bilateral lower extremity wounds History of Wound: Patient is new to [facility] but known to me from the vascular surgery clinic. 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 Patient was understandably quite ill following [...] Method Room Air Charges/Coding Procedures Integumentary 111xxx-113xx: 70550 Sylvia subq tissue 20 sq cm/< Physical [...] Recorded Date Recorded By Document 05/14/22 08:07 [id number] 05/14/22 08:18 Document 05/21/22 08:08 [facility] [id number] 05/21/22 08:20 BM Document 05/28/22 08:47 [facility] [id number] 05/28/22 08:52 BMF 05/14/22 05/21/22 05/28/22 08:07 08:08 08:47 - Today's Visit Information Type of service Follow-up Visit Follow-up Visit Follow-up Visit (Physician/RECORDS MANAGEMENT MANAGER (Physician/RECORDS MANAGEMENT MANAGER (Physician/RECORDS MANAGEMENT MANAGER ) ) ) Arrival Mode Ambulatory Ambulatory [...] Free? Yes Yes Yes WC - Nurse 1 - General Ulcer Measurement Start: 05/14/22 08:07 Freq: Status: Active Protocol: Activity Type Activity Date Activity User E-sign Co-sign Detail Recorded Client Recorded Date Recorded By Document 05/14/22 08:07 [id number] 05/14/22 08:18 JF Document 05/21/22 08:08 BM [id number] 05/21/22 08:20 BMF Document 05/28/22 08:47 [facility] [id number] 05/28/22 08:52 BMF 05/14/22 05/21/22 05/28/22 08:07 08:08 08:47 Wound [...] (34-66%) None Present (0 %) -Granulation Quality Brenton -Slough/Fibrin Yes Yes Yes -Necrosis Amt Small [...] Date Recorded By Document 05/14/22 08:51 PL [id number] 05/14/22 09:00 PL Document 05/21/22 08:55 PL [id number] 05/21/22 08:57 PL Document 05/28/22 09:25 PL [id number] 05/28/22 09:27 PL 05/14/22 05/21/22 05/28/22 08:51 [...] Healed- Epithelialized #3 R Ant Ankle -Time 08:30 08:45 [...] Recorded Date Recorded By Document 05/14/22 08:58 [id number] 05/14/22 08:59 Document 05/21/22 08:56 Desktop 05/21/22 08:57 Document 05/28/22 09:06 [id number] 05/28/22 09:07 05/14/22 05/21/22 05/28/22 08:58 08:56 [...] Cosigner Signature (if applicable): CC: ~ Signed [facility] Work Phone: 1(742) 469-786704-14-2023 Progress note Author Tonia Jenkins [facility] May 21, 2022 2:01pm Note Date/Time May 21, 2022 1:4 5pm [facility] [address] [place] [address] Progress Note - Wound Care 05/21/22 1341 MR#: [id number] Acct: [id number] Name: ABELARDO IVORY Rep #:[id number] 02 : 1950 72 From: Tonia ACUNA PCP: Dr. Ezekiel Carrasco MD Status: REG [facility] Location: History of Present Illness Date of Service: 05/21/22 Chief Complaint: Left wrist wound Multiple bilateral lower extremity wounds History of Wound: Patient is new to [facility] but known to me from the vascular surgery clinic. 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 Patient was understandably quite ill following [...] Method Room Air Charges/Coding Procedures Integumentary 111xxx-113xx: 46788 Sylvia subq tissue 20 sq cm/< Physical [...] Recorded Date Recorded By Document 05/14/22 08:07 [id number] 05/14/22 08:18 JF Document 05/21/22 08:08 BM [id number] 05/21/22 08:20 BMF 05/14/22 05/21/22 08:07 08:08 WC - Today's Visit Information Type of service Follow-up Visit Follow-up Visit (Physician/RECORDS MANAGEMENT MANAGER (Physician/RECORDS MANAGEMENT MANAGER ) ) Arrival Mode Ambulatory Ambulatory Transfer [...] Numeric Is Patient Pain Free? Yes Yes CORBY - Nurse 1 - General Ulcer Measurement Start: 05/14/22 08:07 Freq: Status: Active Protocol: Activity Type Activity Date Activity User E-sign Co-sign Detail Recorded Client Recorded Date Recorded By Document 05/14/22 08:07 [id number] 05/14/22 08:18 Document 05/21/22 08:08 [facility] [id number] 05/21/22 08:20 [facility] 05/14/22 05/21/22 08:07 08:08 Wound Center Nurse [...] (34-66%) None Present (0 %) -Granulation Quality Brenton -Slough/Fibrin Yes Yes -Necrosis Amt Small (1-33%) [...] Date Recorded By Document 05/14/22 08:51 PL [id number] 05/14/22 09:00 PL Document 05/21/22 08:55 PL [id number] 05/21/22 08:57 PL 05/14/22 05/21/22 08:51 08:55 [...] Recorded Date Recorded By Document 05/14/22 08:58 [id number] 05/14/22 08:59 Document 05/21/22 08:56 Desktop 05/21/22 08:57 05/14/22 [...] Is Patient Pain Free? Yes Yes - Visit Discharge Discharge Condition Stable Stable [...] Cosigner Signature (if applicable): CC: ~ Signed [facility] Work Phone: 1(337) 898-349304-07-2023 Progress note Author Tonia Jenkins [facility] May 14, 2022 8:53am Note Date/Time May 14, 2022 8:53 am [facility] [address] [place] [address] Progress Note - Wound Care 05/14/22 0846 MR#: [id number] Acct: [id number] Name: ABELARDO IVORY Rep #:[id number] 02 : 1950 72 From: Tonia ACUNA PCP: Dr. Ezekiel Carrasco MD Status: REG RCR Location: History of Present Illness Date of Service: 05/14/22 Chief Complaint: Left wrist wound Multiple bilateral lower extremity wounds History of Wound: Patient is new to [facility] but known to me from the vascular surgery clinic. 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 Patient was understandably quite ill following [...] Multi Select Codes Integumentary Integumentary CPT Codes: 13503 Sylvia subq tissue 20 sq cm/< Physical [...] lat mal and R ant ankle/sanchez remain. Brenton, granulation tissue at the wound beds. Good [...] Date Recorded By Document 05/14/22 08:07 [place] [id number] 05/14/22 08:18 [place] 05/14/22 08:07 WC - Today's Visit Information Type of service Follow-up Visit (Physician/RECORDS MANAGEMENT MANAGER ) Arrival Mode Ambulatory Patient Requires Transmission-Based [...] 0-10 Numeric Is Patient Pain Free? Yes CORBY - Nurse 1 - General Ulcer Measurement Start: 05/14/22 08:07 Freq: Status: Active Protocol: Activity Type Activity Date Activity User E-sign Co-sign Detail Recorded Client Recorded Date Recorded By Document 05/14/22 08:07 [place] [id number] 05/14/22 08:18 [place] 05/14/22 08:07 Wound Center [...] Scar -Granulation Amt Medium (34-66%) -Granulation Quality Brenton -Slough/Fibrin Yes -Necrosis Amt Small (1-33%) -Necrotic [...] Cosigner Signature (if applicable): CC: ~ Signed [facility] Work Phone: 1([phone]) 955-852204-05-2023 Procedure [facility] 05-07-2022 Progress note Author Tonia Jenkins [facility] May 07, 2022 12:01pm Note Date/Time May 07, 2022 12: 01pm [facility] [address] [place] [address] [place] [address] Progress Note - Wound Care 05/07/22 1156 MR#: [id number] Acct: [id number] Name: ABELARDO IVORY Rep #:[id number] 06 : 1950 72 From: Tonia ACUNA PCP: Dr. Ezekiel Carrasco MD Status: REG RCR Location: History of Present Illness Date of Service: 05/07/22 Chief Complaint: Left wrist wound Multiple bilateral lower extremity wounds History of Wound: Patient is new to [facility] but known to me from the vascular surgery clinic. 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 Patient was understandably quite ill following [...] Air Charges/Coding Wound Center CF Procedures 96XXX-98XXX: 07243 RMVL DEVITAL TIS ADDL 20CM/< Multi Select Codes Wound Center CF Procedures 96XXX-98XXX: 08129 RMVL DEVITAL TIS ADDL 20CM/< Physical Exam [...] have healed. Only 4 remain on RLE. Brenton, granulation tissue at the wound beds. Good bleeding. No significant erythema, foul odor, drainage noted. Left wrist wound with pink granulation tissue at base, minimal slough. Significantly decreased in size from last week. 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: R chummer lower leg Laterality: Right Type of Debridement: [...] Date Recorded By Document 04/09/22 13:30 AK [id number] 04/09/22 13:42 AK Document 04/16/22 14:11 AK [id number] 04/16/22 14:21 MA Document 04/23/22 14:03 IL [id number] 04/23/22 14:17 IL Document 04/30/22 13:54 MA [id number] 04/30/22 14:09 MA Document 05/07/22 10:14 [facility] [id number] 05/07/22 10:26 [facility] 04/09/22 04/16/22 04/23/22 13:30 14:11 14:03 - Today's Visit Information Type of service Initial Visit Follow-up Visit Follow-up Visit (Physician/RECORDS MANAGEMENT MANAGER (Physician/RECORDS MANAGEMENT MANAGER ) ) Arrival Mode Ambulatory Ambulatory Ambulatory [...] No Yes Yes 04/30/22 05/07/22 13:54 10:14 - Today's Visit Information Type of service Follow-up Visit Initial Visit (Physician/RECORDS MANAGEMENT MANAGER ) Arrival Mode Ambulatory Ambulatory Transfer Assistance [...] Recorded Date Recorded By Document 04/09/22 13:30 MA [id number] 04/09/22 13:42 AK Document 04/16/22 14:11 MA [id number] 04/16/22 14:21 AK Document 04/23/22 14:03 IL [id number] 04/23/22 14:17 IL Document 04/30/22 13:54 MA [id number] 04/30/22 14:09 AK Document 05/07/22 10:14 [facility] [id number] 05/07/22 10:26 [facility] 03/04/2904/16/22 04/23/22 13:30 14:11 14:03 Wound Center Nurse [...] (34-66%) Medium (34-66%) %) -Granulation Quality N/A Brenton Red -Slough/Fibrin Yes Yes Yes -Necrosis Amt [...] Present (0 %) %) -Granulation Quality N/A Brenton -Slough/Fibrin Yes Yes Yes -Necrosis Amt Large [...] Present (0 %) %) -Granulation Quality N/A Brenton -Slough/Fibrin Yes Yes Yes -Necrosis Amt Large (67-100%) Large (67-100%) Large (67-100%) -Necrotic Tissue Type Eschar Adherent Slough Eschar -Structure Exposed N/A N/A -Texture (Kristie-wound Skin Appearance) No Abnormality, Assessed Assessed, Assessed [...] None Present (0 %) %) -Granulation Quality Brenton -Slough/Fibrin Yes Yes Yes -Necrosis Amt Large [...] Date Recorded By Document 04/09/22 15:12 PL [id number] 04/09/22 15:29 PL Document 04/16/22 15:08 PL [id number] 04/16/22 15:18 PL Document 04/23/22 15:17 PL [id number] 04/23/22 15:26 PL Document 04/30/22 15:00 PL [id number] 04/30/22 15:08 PL Document 05/07/22 10:45 PL [id number] 05/07/22 10:57 PL 04/09/22 04/16/22 04/23/22 15:12 [...] No No #7 Right 1st Toe -Time 14: 14:25 -Correct Patient Yes Yes -Correct Side, [...] Recorded Date Recorded By Document 04/09/22 15:05 IL [id number] 04/09/22 15:16 IL Document 04/16/22 14:59 MA [id number] 04/16/22 15:01 MA Document 04/23/22 14:53 [facility] [id number] 04/23/22 14:57 [facility] Document 04/30/22 15:04 MA [id number] 04/30/22 15:07 MA Document 05/07/22 11:08 [facility] [id number] 05/07/22 11:09 [facility] 04/09/22 04/16/22 04/23/22 15:05 14:59 14:53 Wound [...] Tape -Other Covering DRSG PER MT RN #4 L ankle -Ulcer Cleansing Soap [...] Secured with Tape -Other Covering DRSG PER [place] RN -Promogran #7 Right 1st Toe -Ulcer Cleansing Rinsed/ Irrigated with Saline -Foul Odor after Cleansing No -Negative Pressure Wound Therapy -Primary Dressing Applied -Other Dressing SANTYL -Primary Dressing Covered/Secured with Dry Gauze & Roll Gauze, Secured with Tape -Other Covering DRSG PER [place] RN -Promogran #6 R Dorsal -Ulcer Cleansing Rinsed/ Irrigated with Saline -Foul Odor after Cleansing No -Negative Pressure Wound Therapy -Primary Dressing Applied -Other Dressing SANTYL -Primary Dressing Covered/Secured with Dry Gauze & Roll Gauze, Secured with Tape -Other Covering DRSG PER MT -Promogran #5 L wrist -Ulcer Cleansing Rinsed/ Rinsed/ Irrigated with Irrigated with Saline Saline -Foul Odor after Cleansing No No -Negative Pressure Wound Therapy N/A -Primary Dressing Applied Promogran Promogran C Hydrogel ($) Mahnaz Matter Mahnaz Matter, Mepilex Border -Other Dressing DRSG PER [place] RN -Primary Dressing Covered/Secured with Dry Gauze & Dry Gauze & Roll Gauze, Roll Gauze, Secured with Secured with Tape Tape -Other Covering -Mepilex Border 1 -Promogran Mahnaz Matter 1 1 Right -Lotion applied to [...] Covering hydrogel/ bandaid bandaid -Mepilex Border -Promogran Mahnaz Matter Right -Lotion applied to leg before [...] Cosigner Signature (if applicable): CC: ~ Signed [facility] Work Phone: 1(342) 825-758903-27-2023 Procedure [facility] 04-30-2022 Progress note Author Tonia valenteecu healthtrung [facility] April 30, 2022 2:55pm Note Date/Time April 30, 2022 2:3 8pm [facility] [address] [place] [address] Progress Note - Wound Care 04/30/22 1435 MR#: [id number] Acct: [id number] Name: ABELARDO IVORY Rep #:[id number] : 1950 72 From: Tonia ACUNA PCP: Dr. Ezekiel Carrasco MD Status: [facility] Location: History of Present Illness Date of Service: 04/30/22 Chief Complaint: Left wrist wound Multiple bilateral lower extremity wounds History of Wound: Patient is new to [facility] but known to me from the vascular surgery clinic. 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 Patient was understandably quite ill following [...] does not currently wear compression. Subjective Subjective Zuleimat has been applying Santyl and changing dressings [...] Air Charges/Coding Wound Center CF Procedures 96XXX-98XXX: 01593 RMVL DEVITAL TIS 20 CM/< Multi Select Codes Wound Center CF Procedures 96XXX-98XXX: 95941 RMVL DEVITAL TIS 20 CM/< Physical Exam [...] few more have healed since last week. Brenton, granulation tissue at the wound beds. Good bleeding. No significant erythema, foul odor, drainage noted. Left wrist wound with pink granulation tissue at base, minimal slough. Significantly decreased in size from last week. 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: R chummer lower leg Laterality: Right Type of Debridement: [...] Recorded Date Recorded By Document 04/09/22 13:30 MA [id number] 04/09/22 13:42 MA Document 04/16/22 14:11 MA [id number] 04/16/22 14:21 MA Document 04/23/22 14:03 IL [id number] 04/23/22 14:17 IL Document 04/30/22 13:54 MA [id number] 04/30/22 14:09 MA 04/09/22 04/16/22 04/23/22 13:30 14:11 14:03 - Today's Visit Information Type of service Initial Visit Follow-up Visit Follow-up Visit (Physician/RECORDS MANAGEMENT MANAGER (Physician/RECORDS MANAGEMENT MANAGER ) ) Arrival Mode Ambulatory Ambulatory Ambulatory [...] Pain Free? No Yes Yes 04/30/22 13:54 WC - Today's Visit Information Type of service Follow-up Visit (Physician/RECORDS MANAGEMENT MANAGER ) Arrival Mode Ambulatory Transfer Assistance Patient [...] Date Recorded By Document 04/09/22 13:30 AK [id number] 04/09/22 13:42 AK Document 04/16/22 14:11 MA [id number] 04/16/22 14:21 AK Document 04/23/22 14:03 IL [id number] 04/23/22 14:17 IL Document 04/30/22 13:54 AK [id number] 04/30/22 14:09 AK 04/09/22 04/16/22 04/23/22 13:30 14:11 14:03 Wound [...] (34-66%) Medium (34-66%) %) -Granulation Quality N/A Brenton Red -Slough/Fibrin Yes Yes Yes -Necrosis Amt [...] Present (0 %) %) -Granulation Quality N/A Brenton -Slough/Fibrin Yes Yes Yes -Necrosis Amt Large [...] None Present (0 %) %) -Granulation Quality Brenton -Slough/Fibrin Yes Yes Yes -Necrosis Amt Large [...] Present (0 %) %) -Granulation Quality N/A Brenton -Slough/Fibrin Yes Yes Yes -Necrosis Amt Large [...] Date Recorded By Document 04/09/22 15:12 PL [id number] 04/09/22 15:29 PL Document 04/16/22 15:08 PL [id number] 04/16/22 15:18 PL Document 04/23/22 15:17 PL [id number] 04/23/22 15:26 PL 04/09/22 04/16/22 04/23/22 15:12 [...] cm No No #6 R Dorsal -Time 14: 14:25 -Correct Patient Yes Yes -Correct Side, [...] Recorded Date Recorded By Document 04/09/22 15:05 IL [id number] 04/09/22 15:16 IL Document 04/16/22 14:59 MA [id number] 04/16/22 15:01 AK Document 04/23/22 14:53 [facility] [id number] 04/23/22 14:57 BM 04/09/22 04/16/22 04/23/22 15:05 14:59 14:53 Wound [...] Tape -Other Covering DRSG PER MT RN #7 Right 1st Toe -Ulcer Cleansing Rinsed/ Irrigated with Saline -Foul Odor after Cleansing No -Other Dressing SANTYL -Primary Dressing Covered/Secured with Dry Gauze & Roll Gauze, Secured with Tape -Other Covering DRSG PER MT RN #6 R Dorsal -Ulcer Cleansing Rinsed/ [...] Dressing Applied Promogran Promogran C Hydrogel ($) Mahnaz Matter Mahnaz Matter, Mepilex Border -Other Dressing DRSG PER [place] RN -Primary Dressing Covered/Secured with Dry Gauze & Dry Gauze & Roll Gauze, Roll Gauze, Secured with Secured with Tape Tape -Mepilex Border 1 -Promogran Mahnaz Matter 1 1 #3 R Ankle -Ulcer [...] Tape Tape Tape -Other Covering DRSG PER [place] RN Right -Lotion applied to leg before [...] 1 week or sooner as needed. 04/30/22 5850 <Electronically signed by Tonia ACUNA> Cosigner Signature (if applicable): CC: ~ Signed [facility] Work Phone: 1(526) 224-541903-17-2023 Progress note Author Tonia Jenkins [facility] April 23, 2022 5:51pm Note Date/Time April 23, 2022 5:5 1pm [facility] [address] [place] [address] Progress Note - Wound Care 04/23/22 1744 MR#: [id number] Acct: [id number] Name: ABELARDO IVORY Rep #:[id number] 17 : 1950 72 From: Tonia ACUNA PCP: Dr. Ezekiel Carrasco MD Status: REG RCR Location: History of Present Illness Date of Service: 04/23/22 Chief Complaint: Left wrist wound Multiple bilateral lower extremity wounds History of Wound: Patient is new to [facility] but known to me from the vascular surgery clinic. 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 Patient was understandably quite ill following [...] wounds as directed. He has been applying mahnaz and DSD to L wrist wound as [...] Air Charges/Coding Wound Center CF Procedures 96XXX-98XXX: 09364 RMVL DEVITAL TIS 20 CM/< Multi Select Codes Wound Center CF Procedures 96XXX-98XXX: 01008 RMVL DEVITAL TIS 20 CM/< Physical Exam [...] appearance. Some have healed since last week. Brenton, granulation tissue at the wound beds. Good bleeding. No significant erythema, foul odor, drainage noted. Left wrist wound with pink granulation tissue at base, minimal slough. Significantly decreased in size from last week. 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: R chummer lower leg Laterality: Right Type of Debridement: [...] Date Recorded By Document 04/09/22 13:30 AK [id number] 04/09/22 13:42 AK Document 04/16/22 14:11 AK [id number] 04/16/22 14:21 AK Document 04/23/22 14:03 IL [id number] 04/23/22 14:17 IL 04/09/22 04/16/22 04/23/22 13:30 14:11 14:03 - Today's Visit Information Type of service Initial Visit Follow-up Visit Follow-up Visit (Physician/RECORDS MANAGEMENT MANAGER (Physician/RECORDS MANAGEMENT MANAGER ) ) Arrival Mode Ambulatory Ambulatory Ambulatory [...] Is Patient Pain Free? No Yes Yes - Nurse 1 - General Ulcer Measurement Start: 04/09/22 13:29 Freq: Status: Active Protocol: Activity Type Activity Date Activity User E-sign Co-sign Detail Recorded Client Recorded Date Recorded By Document 04/09/22 13:30 AK [id number] 04/09/22 13:42 AK Document 04/16/22 14:11 AK [id number] 04/16/22 14:21 AK Document 04/23/22 14:03 IL [id number] 04/23/22 14:17 IL 04/09/22 04/16/22 04/23/22 13:30 14:11 14:03 Wound [...] (34-66%) Medium (34-66%) %) -Granulation Quality N/A Brenton Red -Slough/Fibrin Yes Yes Yes -Necrosis Amt [...] Present (0 %) %) -Granulation Quality N/A Brenton -Slough/Fibrin Yes Yes Yes -Necrosis Amt Large [...] None Present (0 %) %) -Granulation Quality Brenton -Slough/Fibrin Yes Yes Yes -Necrosis Amt Large [...] 1.5 -Date of Last Picture (Recall this 03/03/23 03/17/23 field) -Photo Taken Yes Yes Yes -Epithelialization None Present -Tunneling No No No -Undermining/Tunneling No No No -Circular Undermining No No No -Change in Wound Grade/Stage No -Exudate Amt None Present Medium None Present -Exudate Type Serosanguineous -Wound Margin Distinct, Distinct, Distinct, Outline Outline Outline Attached Attached Attached -Granulation Amt None Present (0 Medium (34-66%) None Present (0 %) %) -Granulation Quality N/A Brenton -Slough/Fibrin Yes Yes Yes -Necrosis Amt Large [...] Date Recorded By Document 04/09/22 15:12 PL [id number] 04/09/22 15:29 PL Document 04/16/22 15:08 PL [id number] 04/16/22 15:18 PL Document 04/23/22 15:17 PL [id number] 04/23/22 15:26 PL 04/09/22 04/16/22 04/23/22 15:12 [...] 20sq cm Yes #9 Right Achilles -Time 14: 14:25 -Correct Patient Yes Yes -Correct Side, [...] Recorded Date Recorded By Document 04/09/22 15:05 IL [id number] 04/09/22 15:16 IL Document 04/16/22 14:59 MA [id number] 04/16/22 15:01 MA Document 04/23/22 14:53 [facility] [id number] 04/23/22 14:57 [facility] 04/09/22 04/16/22 04/23/22 15:05 14:59 14:53 Wound [...] Tape -Other Covering DRSG PER MT RN #7 Right 1st Toe -Ulcer Cleansing Rinsed/ Irrigated with Saline -Foul Odor after Cleansing No -Other Dressing SANTYL -Primary Dressing Covered/Secured with Dry Gauze & Roll Gauze, Secured with Tape -Other Covering DRSG PER MT RN #6 R Dorsal -Ulcer Cleansing Rinsed/ [...] Dressing Applied Promogran Promogran C Hydrogel ($) Mahnaz Matter Mahnaz Matter, Mepilex Border -Other Dressing DRSG PER MT RN -Primary Dressing Covered/Secured with Dry Gauze & Dry Gauze & Roll Gauze, Roll Gauze, Secured with Secured with Tape Tape -Mepilex Border 1 -Promogran Mahnaz Matter 1 1 #3 R Ankle -Ulcer [...] Tape -Other Covering DRSG PER MT RN Right -Lotion applied to leg before [...] Cosigner Signature (if applicable): CC: ~ Signed [facility] Work Phone: 1(435) 782-896303-10-2023 Progress note Author Tonia Jenkins [facility] April 16, 2022 4:54pm Note Date/Time April 16, 2022 4:0 8pm [facility] [address] [place] [address] Progress Note - Wound Care 04/16/22 1605 MR#: [id number] Acct: [id number] Name: ABELARDO IVORY Rep #:[id number] : 1950 72 From: Tonia ACUNA PCP: Dr. Ezekiel Carrasco MD Status: REG R Location: History of Present Illness Date of Service: 04/16/22 Chief Complaint: Left wrist wound Multiple bilateral lower extremity wounds History of Wound: Patient is new to [facility] but known to me from the vascular surgery clinic. 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 Patient was understandably quite ill following [...] covered with DSD. He has been applying mahnaz and DSD to L wrist wound as [...] Cannula Charges/Coding Wound Center CF Procedures 96XXX-98XXX: 93767 RMVL DEVITAL TIS 20 CM/< Multi Select Codes Wound Center CF Procedures 96XXX-98XXX: 50135 RMVL DEVITAL TIS 20 CM/< Physical Exam [...] Debridement Note Debridement Note Wound debrided: R chummer lower leg Laterality: Right Type of Debridement: [...] Date Recorded By Document 04/09/22 13:30 AK [id number] 04/09/22 13:42 AK Document 04/16/22 14:11 AK [id number] 04/16/22 14:21 AK 04/09/22 04/16/22 13:30 14:11 - Today's Visit Information Type of service Initial Visit Follow-up Visit (Physician/RECORDS MANAGEMENT MANAGER ) Arrival Mode Ambulatory Ambulatory Transfer Assistance [...] Numeric Is Patient Pain Free? No Yes - Nurse 1 - General Ulcer Measurement Start: 04/09/22 13:29 Freq: Status: Active Protocol: Activity Type Activity Date Activity User E-sign Co-sign Detail Recorded Client Recorded Date Recorded By Document 04/09/22 13:30 AK [id number] 04/09/22 13:42 AK Document 04/16/22 14:11 MA [id number] 04/16/22 14:21 AK 04/09/22 04/16/22 13:30 14:11 [...] Present (0 Medium (34-66%) %) -Granulation Quality Brenton -Slough/Fibrin Yes Yes -Necrosis Amt Large (67-100%) [...] (0 Medium (34-66%) %) -Granulation Quality N/A Brenton -Slough/Fibrin Yes Yes -Necrosis Amt Large (67-100%) [...] (0 Medium (34-66%) %) -Granulation Quality N/A Brenton -Slough/Fibrin Yes Yes -Necrosis Amt Large (67-100%) [...] (0 Medium (34-66%) %) -Granulation Quality N/A Brenton -Slough/Fibrin Yes Yes -Necrosis Amt Large (67-100%) [...] Date Recorded By Document 04/09/22 15:12 PL [id number] 04/09/22 15:29 PL Document 04/16/22 15:08 PL [id number] 04/16/22 15:18 PL 04/09/22 04/16/22 15:12 15:08 [...] Date Recorded By Document 04/09/22 15:05 MT [id number] 04/09/22 15:16 MT Document 04/16/22 14:59 AK [id number] 04/16/22 15:01 AK 04/09/22 04/16/22 15:05 14:59 Wound Care Center Nurse 3 #1 R lateral foot -Ulcer Cleansing Soap and Water -Primary Dressing Covered/Secured with Dry Gauze & Roll Gauze, Secured with Tape #5 L wrist -Ulcer Cleansing Rinsed/ Irrigated with Saline -Foul Odor after Cleansing No -Negative Pressure Wound Therapy N/A -Primary Dressing Applied Promogran Promogran Mahnaz Matter Mahnaz Matter, Mepilex Border -Primary Dressing Covered/Secured with Dry Gauze & Roll Gauze, Secured with Tape -Mepilex Border 1 -Promogran Mahnaz Matter 1 1 #4 L ankle -Ulcer [...] apply tubigrips for compression. Continue moistened promogran mahnaz to L wrist wound. Will switch to [...] Cosigner Signature (if applicable): CC: ~ Signed [facility] Work Phone: 1(329) 998-706403-03-2023 History and physical note Author Tonia suman [facility] April 09, 2022 9:56pm Note Date/Time April 09, 2022 9:12 pm [facility] [address] [place] [address] H&P Exam - Wound Care 04/09/222107 MR#: [id number] Acct: [id number] Name: ABELARDO IVORY Rep #:[id number] : 1950 72 From: Tonia ACUNA PCP: Dr. Ezekiel Carrasco MD Status: REG RCR Location: History of Present Illness Date of Service: 04/09/22 Chief Complaint: Left wrist wound Multiple bilateral lower extremity wounds History of Wound: Patient is new to [facility] but known to me from the vascular surgery clinic. 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 Patient was understandably quite ill following [...] edema. He does not currently wear compression. [facility] Medical History Abdominal aortic aneurysm (AAA) Anemia Arthritis Atherosclerotic heart disease of [place] coronary artery without angina pectoris Bilateral inguinal [...] Debridement Note Debridement Note Wound debrided: R chummer lower leg Laterality: Right Type of Debridement: [...] Recorded Date Recorded By Document 04/09/22 13:30 MA [id number] 04/09/22 13:42 MA 04/09/22 13:30 WC - Today's Visit Information Type of service Initial Visit Arrival Mode Ambulatory Patient Identification Verified (Name & Yes ) Patient Requires Transmission-Based No Precautions Safety Precautions NA History Since Last Visit- (Skip if this is Patient's initial visit) Left Footwear Regular Shoe Right Footwear Regular Shoe Pain Scale: 0-10 Numeric Is Patient Pain Free? No CORBY - Nurse 1 - General Ulcer Measurement Start: 04/09/22 13:29 Freq: Status: Active Protocol: Activity Type Activity Date Activity User E-sign Co-sign Detail Recorded Client Recorded Date Recorded By Document 04/09/22 13:30 MA [id number] 04/09/22 13:42 MA 04/09/22 13:30 Wound Center Nurse 1 #3 [...] Date Recorded By Document 04/09/22 15:12 PL [id number] 04/09/22 15:29 PL 04/09/22 15:12 Wound Center [...] Recorded Date Recorded By Document 04/09/22 15:05 IL [id number] 04/09/22 15:16 MT 04/09/22 15:05 Wound Care Center Nurse 3 [...] #5 L wrist -Primary Dressing Applied Promogran Mahnaz Matter -Primary Dressing Covered/Secured with Dry Gauze & Roll Gauze, Secured with Tape -Promogran Mahnaz Matter 1 #4 L ankle -Ulcer Cleansing [...] Pressure Charges/Coding Wound Center CF Procedures 96XXX-98XXX: 56252 RMVL DEVITAL TIS 20 CM/< Multi Select Codes Wound Center CF Procedures 96XXX-98XXX: 39537 RMVL DEVITAL TIS 20 CM/< Assessment/Plan Assessment/Plan [...] apply tubigrips for compression. Will apply promogran mahnaz to L wrist wound, cover with DSD. Change dressings daily or more often as needed to keep clean and dry. Advise to adjust diet to reduce sugar/carbs and increase protein. Work towards better blood sugar control. Elevate legs when resting. Return to clinic in 1 week or sooner as needed. 04/09/222155 <Electronically signed by Tonia ACUNA> Cosigner Signature (if applicable): CC: ~ Signed [facility] Work Phone: 1(493) 873-721001-26-[address] Banks [facility] March 04, 2022 2:42pm Note Date/Time March 04, 2022 2 :24pm [facility] Medical Records Department [address] [place] [address] Discharge Summary 03/04/22 1423 MR#: [id number] Acct: [id number] Name: ABELARDO IVORY Rep #:[id number] : 1950 72 From: Beatris Banks DO PCP: Dr. Ezekiel Carrasco MD Status: ADM IN Location: [facility] [id number] Providers Date of Admission: 03/02/22 Date [...] the medical floor and placed on IV Solu-Nszzht48 every 8, placed on ceftriaxone and azithromycin [...] Std Deviation 63.7 H, RDW Coeff of Majnit 17.0 H, Plt Count 104 L, MPV 10.2, Immature Gran % (Auto) 0.800, Neut % (Auto) 78.5 H, Lymph % (Auto) 17.2 L, [place] % (Auto) 3.5, Eos % (Auto) 0.0, [...] Self Care Charges/Coding Visit Charges Inpatient E&M: 59797 Disch Hosp >30min 03/04/22 1442 <Electronically signed by Beatris Banks DO> Cosigner Signature (if applicable): CC: Dr. Noe Suarez MD; Dr. Ezekiel Carrasco MD; Dr. Kwame Alex MD; Dr. Beatris Banks DO~ Signed [facility] Work Phone: 1(220) 388-741201-25-[address] Banks [facility] March 03, 2022 4:12pm Note Date/Time March 03, 2022 4 :12pm [facility] Medical Records Department [address] [place] [address] Progress Note - Hospitalist 03/03/22 1608 MR#: [id number] Acct: [id number] Name: ABELARDO IVORY Rep #:[id number] : 1950 72 From: Beatris Banks DO PCP: Dr. Ezekiel Carrasco MD Status: ADM IN Location: [place] [address] Subjective Subjective Patient states he is at [...] (Auto) 78.5 H, Lymph % (Auto) 19.0, [place] % (Auto) 2.2, Eos % (Auto) 0.0, Baso % (Auto) 0.0, Absolute Neuts (auto) 2.5, Absolute Lymphs (auto) 0.60 L, Nucleated RBC % 0, Diff Path Review May , Platelet Estimate MOD DEC, Anisocytosis 1+, Macrocytosis [...] as able AAA with repair -Repair at [facility] [place] in December 2021 -Continue tobacco cessation -Continue [...] no intubation Charges/Coding Visit Charges Inpatient E&M: 50289 Subs Hosp L2 03/03/22 1612 <Electronically signed by Beatris Banks DO> Cosigner Signature (if applicable): CC: ~ Signed [facility] Work Phone: 1(639) 398-883901-24-[address] Garland [facility] March 02, 2022 3:36pm Note Date/Time March 02, 2022 1 0:07am [facility] Medical Records Department [address] [place] [address] Emergency Department Summary 03/02/22 MR#: [id number] Acct: [id number] Name: ABELARDO IVORY Rep #:[id number] : [...] (AAA) Anemia Arthritis Atherosclerotic heart disease of [place] coronary artery without angina pectoris Bilateral inguinal [...] % (Auto) 66.7 Lymph % (Auto) 27.6 [place] % (Auto) 5.1 Eos % (Auto) 0.2 [...] rate of 75 no acute signs of AK or ischemia. Discharge Plan Triage Chief Complaint: [...] Provider] - Disposition Disposition: Acute Care Hospital [facility] What to do if you have Problems For any increased pain, shortness of breath, bleeding, nausea or vomiting, chestpain, or any unexpected problems, contact your Primary Care Provider. Call [facility] ([phone]) or report to the closest Emergency Room. Call 911 if necessary. 03/02/22 1536 <Electronically signed by Nhan Garland MD> Cosigner Signature (if applicable): CC: Dr. Ezekiel Carrasco MD ~ Signed [facility] Work Phone: 1([phone]) 814-660901-24-2023 History and physical note Author Dr. Banks [facility] March 02, 2022 1:08pm Note Date/Time March 02, 2022 1 2:36pm [facility] Medical Records Department [address] [place] [address] H&P Exam - Hospitalist 03/02/22 1233 MR#: [id number] Acct: [id number] Name: ALEJANDRAABELARDO SWEENEY Rep #:[id number] : 1950 72 From: Beatris Banks DO PCP: Dr. Ezekiel Carrasco MD Status: REG ER Location: ED HPI - General General Date of Admission: 03/02/22 Date of Service: 03/02/22 Chief Complaint: Shortness of breath HPI Narrative ABELARDO IVORY, is a 72 M who presented to the emergency department [facility] on 03/02/2022 with a chief complaint [...] 1 and started on ceftriaxone and azithromycin. [facility] Medical History Abdominal aortic aneurysm (AAA) Anemia Arthritis Atherosclerotic heart disease of [place] coronary artery without angina pectoris Bilateral inguinal [...] % (Auto) 66.7, Lymph % (Auto) 27.6, [place] % (Auto) 5.1, Eos % (Auto) 0.2, [...] as able AAA with repair -Repair at [facility] [place] in December 2021 -Continue tobacco cessation -Continue [...] no intubation Charges/Coding Visit Charges Inpatient E&M: 14653 Init Hosp L3 03/02/22 1306 <Electronically signed by Beatris Banks DO> Cosigner Signature (if applicable): CC: Dr. Ezekiel Carrasco MD; Dr. Beatris Banks DO~ Signed [facility] Work Phone: 1(406) 220-358501-24-2023 History and physical note Author Dr. Banks [facility] March 02, 2022 1:08pm Note Date/Time March 02, 2022 1 2:36pm [facility] Medical Records Department [address] [place] [address] H&P Exam - Hospitalist 03/02/22 1233 MR#: [id number] Acct: [id number] Name: ABELARDO IVORY Rep #:[id number] : 1950 72 From: Beatris Banks DO PCP: Dr. Ezekiel Carrasco MD Status: ADM IN Location: [place] [id number] HPI - General General Date of Admission: 03/02/22 Date of Service: 03/02/22 Chief Complaint: Shortness of breath HPI Narrative ABELARDO IVORY, is a 72 M who presented to the emergency department [facility] on 03/02/2022 with a chief complaint [...] 1 and started on ceftriaxone and azithromycin. [facility] Medical History Abdominal aortic aneurysm (AAA) Anemia Arthritis Atherosclerotic heart disease of [place] coronary artery without angina pectoris Bilateral inguinal [...] % (Auto) 66.7, Lymph % (Auto) 27.6, [place] % (Auto) 5.1, Eos % (Auto) 0.2, [...] as able AAA with repair -Repair at [facility] in December 2021 -Continue tobacco cessation -Continue [...] no intubation Charges/Coding Visit Charges Inpatient E&M: 33960 Init Hosp L3 03/02/22 1308 <Electronically signed by Beatris Banks DO> Cosigner Signature (if applicable): CC: Dr. Ezekiel Carrasco MD; Dr. Beatris Banks DO~ Signed [facility] Work Phone: [phone]) [phone] Garland [facility] March 02, 2022 3:36pm Note Date/Time March 02, 2022 1 0:07am [facility] Medical Records Department [address] [place] [address] Emergency Department Summary 03/02/22 MR#: [id number] Acct: [id number] Name: ABELARDO IVORY Rep #:[id number] : [...] (AAA) Anemia Arthritis Atherosclerotic heart disease of [place] coronary artery without angina pectoris Bilateral inguinal [...] % (Auto) 66.7 Lymph % (Auto) 27.6 [place] % (Auto) 5.1 Eos % (Auto) 0.2 [...] rate of 75 no acute signs of AK or ischemia. Discharge Plan Triage Chief Complaint: [...] PO DAILY aspirin 81 mg tablet,delayed release (/EC) 81 mg PO DAILY rosuvastatin [Crestor] 5 mg tablet 5 mg PO DAILY metoprolol tartrate 25 mg tablet 12.5 mg PO BID Primary Care Provider: Ezekiel Carrasco Referrals: Ezekiel Carrasco MD [Primary Care Provider] - Disposition Disposition: Acute Care Hospital [facility] What to do if you have Problems For any increased pain, shortness of breath, bleeding, nausea or vomiting, chestpain, or any unexpected problems, contact your Primary Care Provider. Call [facility] ([phone]) or report to the closest Emergency Room. Call 911 if necessary. 03/02/22 1536 <Electronically signed by Nhan Garland MD> Cosigner Signature (if applicable): CC: Dr. Ezekiel Carrasco MD ~ Signed [facility] Work Phone: 1(881) 504-807312-20-2022 Miscellaneous Notes* Telephone Encounter - Oxana Martines [...] 3 weeks now. Call back number is [phone]. Physician: Holly Byrnes MD [facility] Miscellaneous Notes* Telephone Encounter - Yris Pineda - 01/01/2022 3:02 PM EST Sent Patient out a reminder letter for his appointment in Jan and call no answer left a VM. PSS-MP documented [facility] History of Present illness Narrative* Venita Shah APRN.CNP - 12/28/2021 3:24 PM EST Images from the original note were not included. Critical Care Transport Note Patient Name: Abelardo Ivory Service Date: 12/28/21 Referring Physician: Vilma Referring Facility: [facility] Accepting Physician: Fitz Accepting Facility: [facility] SUBJECTIVE/CHIEF COMPLAINT: abdominal pain REASON FOR [...] carotid stenosis, and tremor. He presented to [facility] today for evaluation of acute lower [...] managing the patient requested transfer to the [facility] for tertiary and/or quaternary services unavailable at the referring facility. The physician managing the patient requested the [facility] Critical [facility] Team transport and treat the patient for the purpose of tertiary care, evaluation, and management of his ruptured aortic aneurysm condition(s). Air medical transport was requested to reduce the sla-bw-unzmiviqklpj, 22 minutes by air vs. approximately 75 [...] SaO2 > 93% - Expedite transport to [facility] for further workup and care The transport was completed without significant incident or change in the patient's status. The patient was transported to the the [facility] by Rotor (Helicopter) for tertiary and/or quaternary evaluation and management of his Emergent Medical and Surgical condition(s). Upon arrival to the receiving facility, a [id number] report was given to bedside nursing staff [id number] and bedside medical team . Patient care [...] AAA and the Cardiovascular impairment, Respiratory impairment, [employer] UN[employer]ER impairment, Shock, Cardiac Arrest, and Severe metabolic abnormality which the patient had and/or had a high probability of suddenly developing. SIGNATURE: Venita Shah APRN.CNP Acute Care Nurse Practitioner [facility] Critical [facility] Transport Team documented in this [facility]-2022 Procedure note* Venita Shah APRN.CNP - 12/28/2021 [...] PLACEMENT: Sterile PRIMARY PROCEDURALIST: BARRIE De Souza VETERINARY LABORATORY DIAGNOSTICIAN(S): Abigail Liriano RN PROCEDURE NARRATIVE Site Marked: Yes [...] Abelardo Ivory DATE: 12/28/21 documented in this encounter[facility] History of Past illness Narrative* Problem Noted [...] coverage Abdominal aortic aneurysm 09/07/20122012 Overview: CT 8/9/13: 3.9 cm just above the aortic bifurcation Contusion of forearm 08/09/2005 08/09/2005 documented as of this encounter (statuses as of 05/11/2021) [facility] History of Past illness Narrative* Problem Noted [...] coverage Abdominal aortic aneurysm 09/07/20122012 Overview: CT 8/9/13: 3.9 cm just above the aortic bifurcation Contusion of forearm 08/09/2005 08/09/2005 documented as of this encounter (statuses as of 12/28/2021) [facility] History of Past illness Narrative* Problem Noted [...] of this encounter (statuses as of 01/01/2022) [facility] History of Past illness Narrative* Problem Noted [...] of this encounter (statuses as of 01/01/2022) [facility] History of Past illness Narrative* Problem Noted [...] of this encounter (statuses as of 01/26/2022) [facility] History of Past illness Narrative* Problem Noted [...] of this encounter (statuses as of 02/09/2022) [facility] Evaluation note* Diagnosis Onset Date Resolution Status Abdominal aortic aneurysm (AAA) chronic Essential hypertension chron ic H/O coronary artery bypass surgery February 12, 2019 chronic History of aortic valve replacement February 12, 2019 chronic Hyperlipidemia [facility] Work Phone: 1(772) 609-296601-06-2020 Evaluation note* Diagnosis Onset Date Resolution Status Kidney disease acute Abdominal aortic aneurysm (AAA) chronic Essential hypertension chron ic H/O coronary artery bypass surgery February 12, 2019 chronic History of aortic valve replacement February 12, 2019 chronic Hyperlipidemia [facility] Work Phone: 1(561) 564-150801-06-2020 Evaluation note* Diagnosis Onset Date Resolution Status Kidney disease acute Abdominal aortic aneurysm (AAA) chronic Essential hypertension chron ic H/O coronary artery bypass surgery February 12, 2019 chronic History of aortic valve replacement February 12, 2019 chronic Hyperlipidemia chronic Acute respiratory failure with hypoxia acute Hypoxia acute Pleural effusion acute Pneumonia acute Chronic kidney insufficiency chronic COPD exacerbation chronic [facility] Work Phone: 1(119) 386-145301-06-2020 Evaluation note* Diagnosis Onset Date Resolution Status Kidney disease acute Abdominal aortic aneurysm (AAA) chronic Essential hypertension chron ic H/O coronary artery bypass surgery February 12, 2019 chronic History of aortic valve replacement February 12, 2019 chronic Hyperlipidemia chronic Hypoxia acute Pneumonia acute Acute respiratory failure with hypoxia resolved COPD exacerbation resolved [facility] Work Phone: [phone]) 476-416601-06-2020 Evaluation note* Diagnosis Onset Date Resolution Status [...] (AAA) chronic Atherosclerotic heart diseas e of [place] coronary artery without angina pectoris chronic Essential hypertension chron ic History of aortic valve replacement February 12, 2019 chronic Hyperlipidemia chronic Kidney disease [facility] Work Phone: [phone]) 339-566501-06-2020 Evaluation note* Diagnosis Onset Date Resolution Status [...] (AAA) chronic Atherosclerotic heart diseas e of [place] coronary artery without angina pectoris chronic Essential hypertension chron ic History of aortic valve replacement February 12, 2019 chronic Hyperlipidemia chronic Kidney disease chronic Lower extremity edema acute Abdominal aortic aneurysm (AAA) chronic Atherosclerotic heart diseas e of [place] coronary artery without angina pectoris chronic Essential hypertension chron ic History of aortic valve replacement February 12, 2019 chronic Hyperlipidemia chronic Kidney disease chronic Hypoxia acute COPD (chronic obstructive pulmonary disease) chronic Secondary pulmonary arterial hypertension chronic Tobacco dependence chronic Abdominal aortic aneurysm (AAA) [facility] Work Phone: [phone] 332-502501-06-2020 Evaluation note* Diagnosis Onset Date Resolution Status [...] (AAA) chronic Atherosclerotic heart diseas e of [place] coronary artery without angina pectoris chronic Essential hypertension chron ic History of aortic valve replacement February 12, 2019 chronic Hyperlipidemia chronic Kidney disease chronic Lower extremity edema acute Abdominal aortic aneurysm (AAA) chronic Atherosclerotic heart diseas e of [place] coronary artery without angina pectoris chronic Essential hypertension chron ic History of aortic valve replacement February 12, 2019 chronic Hyperlipidemia chronic Kidney disease chronic Hypoxia acute COPD (chronic obstructive pulmonary disease) chronic Secondary pulmonary arterial hypertension chronic Tobacco dependence chronic Abdominal aortic aneurysm (AAA) chronic 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 acute [id number] acute Wound of left upper extremity acute [facility] Work Phone: Evaluation noteNo assessment information available [facility] Work Phone: Evaluation note* Diagnosis Abdominal aortic aneurysm (AAA) without rupture, unspecified part- Primary Edema of abdomen [facility] Diagnosis Ruptured abdominal aortic aneurysm (AAA), unspecified part- Primary [facility] Diagnosis Onset Date Resolution Status Hypoxia acute Pneumonia acute Acute respiratory failure with hypoxia resolved COPD exacerbation resolved Lower extremity edema acute Abdominal aortic aneurysm (AAA) chronic Atherosclerotic heart diseas e of [place] coronary artery without angina pectoris chronic Essential hypertension chron ic History of aortic valve replacement February 12, 2019 chronic Hyperlipidemia chronic Kidney disease chronic Lower extremity edema acute Abdominal aortic aneurysm (AAA) chronic Atherosclerotic heart diseas e of [place] coronary artery without angina pectoris chronic Essential hypertension chron ic History of aortic valve replacement February 12, 2019 chronic Hyperlipidemia chronic Kidney disease chronic Hypoxia acute COPD (chronic obstructive pulmonary disease) chronic Secondary pulmonary arterial hypertension chronic Tobacco dependence chronic Abdominal aortic aneurysm (AAA) chronic 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 acute [id number] acute Wound of left upper extremity acute [facility] Work Phone: Evaluation note* Diagnosis Onset Date Resolution Status Hypoxia acute Pneumonia acute Acute respiratory failure with hypoxia resolved COPD exacerbation resolved Lower extremity edema acute Abdominal aortic aneurysm (AAA) chronic Atherosclerotic heart diseas e of [place] coronary artery without angina pectoris chronic Essential hypertension chron ic History of aortic valve replacement February 12, 2019 chronic Hyperlipidemia chronic Kidney disease chronic Lower extremity edema acute Abdominal aortic aneurysm (AAA) chronic Atherosclerotic heart diseas e of [place] coronary artery without angina pectoris chronic Essential hypertension chron ic History of aortic valve replacement February 12, 2019 chronic Hyperlipidemia chronic Kidney disease chronic Hypoxia acute COPD (chronic obstructive pulmonary disease) chronic Secondary pulmonary arterial hypertension chronic Tobacco dependence chronic Abdominal aortic aneurysm (AAA) chronic 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 acute [id number] acute Wound of left upper extremity acute 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 acute [id number] acute Wound of left upper extremity acute Lower extremity edema acute Abdominal aortic aneurysm (AAA) chronic Atherosclerotic heart diseas e of [place] coronary artery without angina pectoris chronic Essential hypertension chron ic History of aortic valve replacement February 12, 2019 chronic Hyperlipidemia chronic Kidney disease [facility] Work Phone: Evaluation note* Diagnosis Onset Date Resolution Status Hypoxia acute Pneumonia acute Acute respiratory failure with hypoxia resolved COPD exacerbation resolved Lower extremity edema acute Abdominal aortic aneurysm (AAA) chronic Atherosclerotic heart diseas e of [place] coronary artery without angina pectoris chronic Essential hypertension chron ic History of aortic valve replacement February 12, 2019 chronic Hyperlipidemia chronic Kidney disease chronic Lower extremity edema acute Abdominal aortic aneurysm (AAA) chronic Atherosclerotic heart diseas e of [place] coronary artery without angina pectoris chronic Essential hypertension chron ic History of aortic valve replacement February 12, 2019 chronic Hyperlipidemia chronic Kidney disease chronic Hypoxia acute COPD (chronic obstructive pulmonary disease) chronic Secondary pulmonary arterial hypertension chronic Tobacco dependence chronic Abdominal aortic aneurysm (AAA) chronic 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 acute [id number] acute Wound of left upper extremity acute Lower extremity edema acute Abdominal aortic aneurysm (AAA) chronic Atherosclerotic heart diseas e of [place] coronary artery without angina pectoris chronic Essential hypertension chron ic History of aortic valve replacement February 12, 2019 chronic Hyperlipidemia chronic Kidney disease chronic 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 acute [id number] acute Wound of left upper extremity acute [facility] Work Phone: Evaluation note* Diagnosis Onset Date Resolution Status 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 acute [id number] acute Wound of left upper extremity acute Lower extremity edema acute Abdominal aortic aneurysm (AAA) chronic Atherosclerotic heart diseas e of [place] coronary artery without angina pectoris chronic Essential hypertension chron ic History of aortic valve replacement February 12, 2019 chronic Hyperlipidemia chronic Kidney disease chronic 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 acute [id number] acute Wound of left upper extremity acute COPD (chronic obstructive pulmonary disease) chronic Secondary pulmonary arterial hypertension chronic Tobacco dependence [facility] Work Phone: evaluation note* Diagnosis Onset Date Resolution Status S/P AAA repair chronic COPD (chronic obstructive pulmonary disease) chronic Smoking greater than 40 pack years chronic Abdominal aortic aneurysm (AAA) chronic Atherosclerotic heart diseas e of [place] coronary artery without angina pectoris chronic Essential hypertension chron ic History of aortic valve replacement February 12, 2019 chronic Hyperlipidemia chronic Smoking greater than 40 pack years [facility] Work Phone: Evaluation note* Diagnosis Onset Date Resolution Status COPD (chronic obstructive pulmonary disease) chronic Smoking greater than 40 pack years chronic Abdominal aortic aneurysm (AAA) chronic Atherosclerotic heart diseas e of [place] coronary artery without angina pectoris chronic Essential hypertension chron ic History of aortic valve replacement February 12, 2019 chronic Hyperlipidemia chronic Smoking greater than 40 pack years [facility] Work Phone: Evaluation note* Diagnosis Malignant neoplasm of urinary bladder, unspecified site (HCC) [facility]* Diagnosis Malignant neoplasm of urinary bladder, unspecified site (HCC)- Primary Nocturia Hematuria, gross Gross hematuria [facility] Diagnosis Malignant neoplasm of urinary bladder, unspecified site (HCC)- Primary Malignant neoplasm of urinary bladder, unspecified site (HCC) [facility]* Diagnosis Malignant neoplasm of urinary bladder, unspecified site (HCC)- Primary Hematuria, gross Gross hematuria Malignant neoplasm of urinary bladder, unspecified site (HCC) Gross hematuria [facility]* Diagnosis Preop testing- Primary Preoperative examination, unspecified 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 pectoris Essential hypertension Unspecified [...] hematuria * Assessment & Plan Note - Shoulders, Marisela, [employer]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 Patient denies hospitalizations or pneumoniawithin 6 weeks. 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 Limited study. * Assessment & Plan Note - Marisela Pichardo APRN.CNP - 08/16/2024 7:26 AM EDT Associated Problem(s): Preop testing Assessment : See Note for medical conditions which may affect kirstie-operative course was addressed in visit today. 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 pectoris Essential hypertension Unspecified [...] gross Gross hematuria documented in this encounter [facility] note* Diagnosis Preop testing- Primary Preoperative examination, unspecified 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 pectoris Essential hypertension Unspecified [...] site (HCC)- Primary documented in this encounter [facility] note* Diagnosis Preop testing- Primary Preoperative examination, unspecified 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 pectoris Essential hypertension Unspecified [...] on left Hydroureter [facility]* Diagnosis Preop testing- Primary Preoperative examination, unspecified 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 pectoris Essential hypertension Unspecified [...] of urinary bladder documented in this encounter [facility] note* Diagnosis Preop testing- Primary Preoperative examination, unspecified 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 pectoris Essential hypertension Unspecified [...] on left Hydroureter [facility]* Diagnosis Preop testing- Primary Preoperative examination, unspecified 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 pectoris Essential hypertension Unspecified [...] (HCC) Other hydronephrosis [facility] Diagnosis Preop testing- Primary Preoperative examination, unspecified 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 pectoris Essential hypertension Unspecified essential hypertension Hyperlipidemia, unspecified hyperlipidemia type Centrilobular emphysema (HCC) Other emphysema Type 2 diabetes mellitus without complication, without long-term current use of insulin (HCC) Chronic kidney disease, unspecified CKD stage Malignant neoplasm of urinary bladder, unspecified site (HCC) [C67.9] Gross hematuria [R31.0] Gross hematuria Malignant neoplasm of urinary bladder, unspecified site (HCC)- Primary Malignant neoplasm of overlapping sites of bladder (HCC) Malignant neoplasm of other specified sites of bladder documented in this encounter [facility] note* Diagnosis Preop testing- Primary Preoperative examination, unspecified 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 pectoris Essential hypertension Unspecified essential hypertension Hyperlipidemia, unspecified hyperlipidemia type Centrilobular emphysema (HCC) Other emphysema Type 2 diabetes mellitus without complication, without long-term current use of insulin (HCC) Chronic kidney disease, unspecified CKD stage Malignant neoplasm of urinary bladder, unspecified site (HCC) [C67.9] Gross hematuria [R31.0] Gross hematuria Malignant neoplasm of urinary bladder, unspecified site (HCC)- Primary Malignant neoplasm of overlapping sites of bladder (HCC) Malignant neoplasm of other specified sites of bladder documented in this encounter [facility] note* Diagnosis Preop testing- Primary Preoperative examination, unspecified 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 pectoris Essential hypertension Unspecified [...] of urinary bladder documented in this encounter [facility] note* Diagnosis Preop testing- Primary Preoperative examination, unspecified 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 pectoris Essential hypertension Unspecified [...] neoplasm of other specified sites of bladder Malignant neoplasm of urinary bladder, unspecified site (HCC) [facility]* Diagnosis Preop testing- Primary Preoperative examination, unspecified 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 pectoris Essential hypertension Unspecified [...] of urinary bladder [facility] Diagnosis Preop testing- Primary Preoperative examination, unspecified 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 pectoris Essential hypertension Unspecified [...] site (HCC)- Primary [facility]* Diagnosis Preop testing- Primary Preoperative examination, unspecified 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 pectoris Essential hypertension Unspecified [...] neoplasm of other specified sites of bladder [facility] Diagnosis Preop testing- Primary Preoperative examination, unspecified 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 pectoris Essential hypertension Unspecified [...] of urinary bladder [facility]* Diagnosis Preop testing- Primary Preoperative examination, unspecified 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 pectoris Essential hypertension Unspecified [...] of urinary bladder [facility]* Diagnosis Preop testing- Primary Preoperative examination, unspecified 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 pectoris Essential hypertension Unspecified [...] of urinary bladder [facility]* Diagnosis Preop testing- Primary Preoperative examination, unspecified 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 pectoris Essential hypertension Unspecified [...] neoplasm of other specified sites of bladder [facility] Diagnosis Preop testing- Primary Preoperative examination, unspecified 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 pectoris Essential hypertension Unspecified essential hypertension Hyperlipidemia, unspecified hyperlipidemia type Centrilobular emphysema (HCC) Other emphysema Type 2 diabetes mellitus without complication, without long-term current use of insulin (HCC) Chronic kidney disease, unspecified CKD stage Malignant neoplasm of urinary bladder, unspecified site (HCC) [C67.9] Gross hematuria [R31.0] Gross hematuria Malignant neoplasm of prostate (HCC)- Primary Malignant neoplasm of prostate documented in this encounter [facility] note* Diagnosis Preop testing- Primary Preoperative examination, unspecified 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 pectoris Essential hypertension Unspecified [...] neoplasm of other specified sites of bladder documented in this encounter [facility] note* Diagnosis Preop testing- Primary Preoperative examination, unspecified 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 pectoris Essential hypertension Unspecified essential hypertension Hyperlipidemia, unspecified hyperlipidemia type Centrilobular emphysema (HCC) Other emphysema Type 2 diabetes mellitus without complication, without long-term current use of insulin (HCC) Chronic kidney disease, unspecified CKD stage Malignant neoplasm of urinary bladder, unspecified site (HCC) [C67.9] Gross hematuria [R31.0] Gross hematuria Malignant neoplasm of urinary bladder, unspecified site (HCC)- Primary Malignant neoplasm of overlapping sites of bladder (HCC) Malignant neoplasm of other specified sites of bladder documented in this encounter [facility] note* Diagnosis Preop testing- Primary Preoperative examination, unspecified 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 pectoris Essential hypertension Unspecified [...] of urinary bladder [facility] Diagnosis Preop testing- Primary Preoperative examination, unspecified 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 pectoris Essential hypertension Unspecified [...] (HCC)- Primary [facility] Additional Instructions Your urine [...] with Tylenol and or ibuprofen for pain controlWFairfield [facility] Work Phone: Hospital Discharge instructionsAmbulatory Orders* Vascular Location: None [facility] Work Phone: Reason for referral (narrative)* Outpatient Procedure (Routine) - Authorized Specialty Diagnoses / Procedures Referred By Contac t Referred To [facility] Diagnoses Abdominal aortic aneurysm (AAA) without rupture, unspecified part Edema of abdomen Procedures US ABD AORTA COMPLETE VAS LAB DUP-SCAN AORTA IVC ILIAC VASCL/BPGS COMPLETE Jamin Wilcox MD [address] [place] [address] [facility] [place] [address] [place] [address] Referral ID Status Reason Start Date Expiration Date Visits Requested Visits Authorized [id number] Authorized Auto-Generat ed Referral 2 01/01/2023 1 1 [facility] for referral (narrative)No reason for referral information availableWFairfield Medical Center Work Phone: Reason for visit Narrative* MRI/CT (Routine) - Closed Specialty Diagnoses / Procedures Referred By Jeff t Referred To Contact CT IMAGING Diagnoses Malignant neoplasm of urinary bladder, unspecified site (HCC) Procedures CT CHEST W IVCON DIAGNOSTIC COMPUTED TOMOGRAPHY THORAX W/CONTRAST Codey Christianson MD [address] [place] [address] Phone: tel: fax: [id number] Referral ID Status Reason Start Date Expiration Date V isits Requested Visits Authorized [id number] Closed Auto-Generate d Referral 07/26/2024 08/25/2025 1 1 [facility] Advance Directives No Advanced Directives Records FoundDocuments on File Type Date Recorded 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 Advance Directive(s) 02/06/2019 12:13 PM Date Activated Date Inactivated Comments 12/28/2021 2:50 PM 12/28/2021 8:54 PM Question Answer Comments Full Code Order Discussed With: Patient Documents on File Type Date Recorded 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 anation Advance Directive(s) 02/08/2019 1:40 PM Advance Directive(s) 02/06/2019 12:13 PM scanned in today Advance Directive(s) 02/06/2019 12:13 PM Advance Directive(s) 01/24/2019 2:53 PM Advance Directive Response Recorded Date/ Time Advance Directives Yes November 27, 2018 7:21am Living Will Yes November 27 7:21am Power of Panel Machine Setter Yes November 27, 2018 7:21am Advance Directive Response Recorded Date/ Time Advance Directives Yes November 27, 2018 6:21am Living Will Yes December 28, 022 10:34am Power of Panel Machine Setter No December 28, 2021 10:34am Latest Code Status on File Code Status Date Activated Date Inactivated Comments Full Code 12/28/2021 2:50 PM 12/28/2021 8:54 PM Full Code Order Discussed With: Patient Documents on File Type Date Recorded 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 Advance Directive(s) 02/06/2019 12:13 PM Latest Code Status on File Code Status Date Activated Date Inactivated Comments Full Code 12/28/2021 2:50 PM 12/28/2021 8:54 PM Advance Directive Response Recorded Date/ Time Advance Directives Yes November 27, 2018 6:21am Living Will Yes March 02 9:10am Power of Panel Machine Setter No March 02, 2022 9:10am Advance Directive Response Recorded Date/ Time Advance Directives Yes November 27, 2018 6:21am Living Will Yes March 02 4:52pm Power of Panel Machine Setter No March 02, 2022 4:52pm Advance Directive Response Recorded Date/ Time Advance Directives Yes November 27, 2018 6:21am Living Will No March 22 5:01pm Power of Panel Machine Setter No March 22, 2022 5:01pm Advance Directive Response Recorded Date/ Time Advance Directives Yes November 27, 2018 7:21am Living Will No March 22 6:01pm Power of Panel Machine Setter No March 22, 2022 6:01pm Advance Directive Response Recorded Date/ Time Living Will No March 22 6:01pm Do you have a Healthcare Power of Panel Machine Setter? No March 22, 2022 6:01pm Living Will Yes January 08 11:15am Do you have a Healthcare Power of Panel Machine Setter? Yes January 09, 2024 11:15am Name of Medical Power of Panel Machine Setter CANDIE CABRAL January 09, 2024 11:15am Advance Directives Yes November 27, 2018 7:21am Advance Directive Response Recorded Date/ Time Living Will No March 22 6:01pm Do you have a Healthcare Pow er of Panel Machine Setter? No March 22, 2022 6:01pm Living Will Yes May 16, 2024 10:19pm Do you have a Healthcare Pow er of Panel Machine Setter? Yes May 16, 2024 10:19pm Name of Medical Power of Panel Machine Setter daughter Candie Cabral May 16, 2024 10:19pm Living Will Yes January 08 11:15am Do you have a Healthcare Pow er of Panel Machine Setter? Yes January 09, 2024 11:15am Name of Medical Power of Panel Machine Setter CANDIE CABRAL January 09, 2024 11:15am Advance Directives Yes November 27, 2018 7:21am Advance Directive Response Recorded Date/ Time Living Will No March 22 6:01pm Do you have a Healthcare Pow er of Panel Machine Setter? No March 22, 2022 6:01pm Advance Directives Yes June 15, 2024 8:41am Living Will Yes May 16, 2024 10:19pm Do you have a Healthcare Pow er of Panel Machine Setter? Yes May 16, 2024 10:19pm Name of Medical Power of Panel Machine Setter daughter Candie Cabral May 16, 2024 10:19pm Advance Directive Response Recorded Date/ Time Living Will No March 22 023 6:01pm Do you have a Healthcare Pow er of Panel Machine Setter? No March 22, 2022 6:01pm Advance Directives Yes June 15, 2024 8:41am Living Will Yes May 16, 2024 10:19pm Do you have a Healthcare Pow er of Panel Machine Setter? Yes May 16, 2024 10:19pm Name of Medical Power of Panel Machine Setter daughter Candie Cabral May 16, 2024 10:19pm Do you have a Healthcare Pow er of Panel Machine Setter? No June 13, 2024 10:26am Advance Directive Response Recorded Date/ Time Living Will No March 22 6:01pm Do you have a Healthcare Pow er of Panel Machine Setter? No March 22, 2022 6:01pm Advance Directives Yes June 15, 2024 8:41am Living Will Yes May 16, 2024 10:19pm Do you have a Healthcare Pow er of Panel Machine Setter? Yes May 16, 2024 10:19pm Name of Medical Power of Panel Machine Setter daughter Candie Cabral May 16, 2024 10:19pm Do you have a Healthcare Pow er of Panel Machine Setter? No June 27, 2024 3:48pm Date Activated Date Inactivated Comments 12/28/2021 2:50 PM 12/28/2021 8:54 PM Question Answer Comments Full Code Order Discussed With: Patient Advance Directive Response Recorded Date/ Time Advance Directives Yes June 15, 2024 8:41am Living Will Yes May 16, 2024 10:19pm Do you have a Healthcare Pow er of Panel Machine Setter? Yes May 16, 2024 10:19pm Name of Medical Power of Panel Machine Setter jatin Cabral May 16, 2024 10:19pm Do you have a Healthcare Pow er of Panel Machine Setter? No June 27, 2024 3:48pm Advance Directive Response Recorded Date/ Time Advance Directives Yes June 15, 2024 8:41am Do you have a Healthcare Power of Panel Machine Setter? No June 27, 2024 3:48pm Chief Complaint [...] RLL CAP RLL CHF EVERYTHING CHF per FX ARTIST /L.Katelynson Reason for Visit Abdominal aortic ane urysm (AAA) Essential hypertension H/O coronary artery bypass surgery History of aortic valve replacement Hyperlipidemia Kidney disease Hypoxia Pneumonia Acute respiratory failure with hypoxia COPD exacerbation Lower extremity edema Abdominal aortic aneurysm (AAA) Atherosclerotic heart disease of [place] coronary artery without angina pectoris Essential hypertension History of aortic valve replacement Hyperlipidemia Kidney disease Chief Complaint ABD 6 M FU E ORDERS/2 ORDERING DOCTORS EORDER RUPTURED ABDOMINAL AORTIC ANEURYSM/RX HERE CAP RLL Shortness of breath CAP RLL CAP RLL CHF EVERYTHING CHF per FX ARTIST /L.Lorson EORDER PER [facility] F/U BILAT LOWER PAIN Amb Documentation EORDER Reason for Visit Abdominal aortic ane urysm (AAA) Essential hypertension H/O coronary artery bypass surgery History of aortic valve replacement Hyperlipidemia Kidney disease Hypoxia Pneumonia Acute respiratory failure with hypoxia COPD exacerbation Lower extremity edema Abdominal aortic aneurysm (AAA) Atherosclerotic heart disease of [place] coronary artery without angina pectoris Essential hypertension History of aortic valve replacement Hyperlipidemia Kidney disease Lower extremity edema Abdominal aortic aneurysm (AAA) Atherosclerotic heart disease of [place] coronary artery without angina pectoris Essential hypertension History of aortic valve replacement Hyperlipidemia Kidney disease Hypoxia COPD (chronic obstructive pulmonary disease) Secondary pulmonary arterial hypertension Tobacco dependence Abdominal aortic aneurysm (AAA) Chief Complaint ABD 6 M FU E ORDERS/2 ORDERING DOCTORS EORDER RUPTURED ABDOMINAL AORTIC ANEURYSM/RX HERE CAP RLL Shortness of breath CAP RLL CAP RLL CHF EVERYTHING CHF per FX ARTIST /L.Lorson EORDER PER [facility] F/U BILAT LOWER PAIN Amb Documentation EORDER FOOT PAIN wound wound Reason for Visit Abdominal aortic ane urysm (AAA) Essential hypertension H/O coronary artery bypass surgery History of aortic valve replacement Hyperlipidemia Kidney disease Hypoxia Pneumonia Acute respiratory failure with hypoxia COPD exacerbation Lower extremity edema Abdominal aortic aneurysm (AAA) Atherosclerotic heart disease of [place] coronary artery without angina pectoris Essential hypertension History of aortic valve replacement Hyperlipidemia Kidney disease Lower extremity edema Abdominal aortic aneurysm (AAA) Atherosclerotic heart disease of [place] coronary artery without angina pectoris Essential hypertension History of aortic valve replacement Hyperlipidemia Kidney disease Hypoxia COPD (chronic obstructive pulmonary disease) Secondary pulmonary arterial hypertension Tobacco dependence Abdominal aortic aneurysm (AAA) 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 [id number] Wound of left upper extremity Chief Complaint EORDER RUPTURED ABDOMINAL AORTIC ANEURYSM/RX HERE CAP RLL Shortness of breath CAP RLL CAP RLL CHF EVERYTHING CHF per FX ARTIST /L.Lorson EORDER PER [facility] F/U BILAT LOWER PAIN Amb Documentation EORDER FOOT PAIN wound wound wound wound J44.9 - Chronic obstructive pulmonary disease, uns J44.9 - Chronic obstructive pulmonary disease, uns wound wound Reason for Visit Hypoxia Pneumonia Acute respiratory failure with hypoxia COPD exacerbation Lower extremity edema Abdominal aortic aneurysm (AAA) Atherosclerotic heart disease of [place] coronary artery without angina pectoris Essential hypertension History of aortic valve replacement Hyperlipidemia Kidney disease Lower extremity edema Abdominal aortic aneurysm (AAA) Atherosclerotic heart disease of [place] coronary artery without angina pectoris Essential hypertension History of aortic valve replacement Hyperlipidemia Kidney disease Hypoxia COPD (chronic obstructive pulmonary disease) Secondary pulmonary arterial hypertension Tobacco dependence Abdominal aortic aneurysm (AAA) 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 [id number] Wound of left upper extremity Chief Complaint EORDER RUPTURED ABDOMINAL AORTIC ANEURYSM/RX HERE CAP RLL Shortness of breath CAP RLL CAP RLL CHF EVERYTHING CHF per FX ARTIST /L.Lorson EORDER PER [facility] F/U BILAT LOWER PAIN Amb Documentation [...] aortic aneurysm (AAA) Atherosclerotic heart disease of [place] coronary artery without angina pectoris Essential hypertension History of aortic valve replacement Hyperlipidemia Kidney disease Lower extremity edema Abdominal aortic aneurysm (AAA) Atherosclerotic heart disease of [place] coronary artery without angina pectoris Essential hypertension History of aortic valve replacement Hyperlipidemia Kidney disease Hypoxia COPD (chronic obstructive pulmonary disease) Secondary pulmonary arterial hypertension Tobacco dependence Abdominal aortic aneurysm (AAA) 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 [id number] Wound of left upper extremity 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 [id number] Wound of left upper extremity Lower extremity edema Abdominal aortic aneurysm (AAA) Atherosclerotic heart disease of [place] coronary artery without angina pectoris Essential hypertension History of aortic valve replacement Hyperlipidemia Kidney disease Chief Complaint EORDER RUPTURED ABDOMINAL AORTIC ANEURYSM/RX HERE CAP RLL Shortness of breath CAP RLL CAP RLL CHF EVERYTHING CHF per FX ARTIST /L.Lorson EORDER PER [facility] F/U BILAT LOWER PAIN Amb Documentation [...] aortic aneurysm (AAA) Atherosclerotic heart disease of [place] coronary artery without angina pectoris Essential hypertension History of aortic valve replacement Hyperlipidemia Kidney disease Lower extremity edema Abdominal aortic aneurysm (AAA) Atherosclerotic heart disease of [place] coronary artery without angina pectoris Essential hypertension History of aortic valve replacement Hyperlipidemia Kidney disease Hypoxia COPD (chronic obstructive pulmonary disease) Secondary pulmonary arterial hypertension Tobacco dependence Abdominal aortic aneurysm (AAA) 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 [id number] Wound of left upper extremity Lower extremity edema Abdominal aortic aneurysm (AAA) Atherosclerotic heart disease of [place] coronary artery without angina pectoris Essential hypertension History of aortic valve replacement Hyperlipidemia Kidney disease 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 [id number] Wound of left upper extremity Chief Complaint RUPTURED ABDOMINAL A ORTIC ANEURYSM/RX HERE CAP RLL Shortness of breath CAP RLL CAP RLL CHF EVERYTHING CHF per FX ARTIST /L.Abad EORDER PER [facility] F/U BILAT LOWER PAIN Amb Documentation [...] aortic aneurysm (AAA) Atherosclerotic heart disease of [place] coronary artery without angina pectoris Essential hypertension History of aortic valve replacement Hyperlipidemia Kidney disease Lower extremity edema Abdominal aortic aneurysm (AAA) Atherosclerotic heart disease of [place] coronary artery without angina pectoris Essential hypertension History of aortic valve replacement Hyperlipidemia Kidney disease Hypoxia COPD (chronic obstructive pulmonary disease) Secondary pulmonary arterial hypertension Tobacco dependence Abdominal aortic aneurysm (AAA) 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 [id number] Wound of left upper extremity Lower extremity edema Abdominal aortic aneurysm (AAA) Atherosclerotic heart disease of [place] coronary artery without angina pectoris Essential hypertension History of aortic valve replacement Hyperlipidemia Kidney disease 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 [id number] Wound of left upper extremity Chief Complaint wound wound J44.9 - Chronic obstructive pulmonary disease, uns J44.9 - Chronic obstructive pulmonary disease, uns wound wound J44.9 - Chronic obstructive pulmonary disease, uns J44.9 - Chronic obstructive pulmonary disease, uns wound 4-6 WK F/U EORDER wound wound wound wound 3 M FU Reason for Visit 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 [id number] Wound of left upper extremity Lower extremity edema Abdominal aortic aneurysm (AAA) Atherosclerotic heart disease of [place] coronary artery without angina pectoris Essential hypertension History of aortic valve replacement Hyperlipidemia Kidney disease 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 [id number] Wound of left upper extremity COPD (chronic [...] ulcer of ankle with fat layer exposed [id number] Wound of left upper extremity Lower extremity edema Abdominal aortic aneurysm (AAA) Atherosclerotic heart disease of [place] coronary artery without angina pectoris Essential hypertension History of aortic valve replacement Hyperlipidemia Kidney disease 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 [id number] Wound of left upper extremity COPD (chronic [...] aortic aneurysm (AAA) Atherosclerotic heart disease of [place] coronary artery without angina pectoris Essential hypertension History of aortic valve replacement Hyperlipidemia Smoking greater than 40 pack years Chief Complaint 6 M FU TOBACO 1 Y FU INT LABS VALVE REPLACEMENT EVAL Amb Documentation Reason for Visit COPD (chronic obstru ctive pulmonary disease) Smoking greater than 40 pack years Abdominal aortic aneurysm (AAA) Atherosclerotic heart disease of [place] coronary artery without angina pectoris Essential hypertension [...] greater than 40 pack years 2024 12:36pm Pre-operative cardiovascular examination June 19, 2024 8:36am Abdominal aortic aneurysm (AAA) June 8:36am Atherosclerotic heart diseas e of [place] coronary artery without angina pectoris June 19, [...] June 8:36am Atherosclerotic heart diseas e of [place] coronary artery without angina pectoris June 19, 2024 8:36am Essential hypertension June 19, 2024 8: 36am History of aortic valve replacement June 19, 2024 8:36am Hyperlipidemia June 19, 2024 8:36a m Smoking greater than 40 pack years June [id number] 8:36am Pre-operative cardiovascular examination August 30, 2024 7:53am Abdominal aortic aneurysm (AAA) August 7:53am Atherosclerotic heart diseas e of [place] coronary artery without angina pectoris August 30, 2024 7:53am Essential hypertension August 30, 2024 7 :53am History of aortic valve replacement August 30, 2024 7:53am Hyperlipidemia August 30, 2024 7:53 am Smoking greater than 40 pack years August 30, 2024 7:53am Chief Complaint Admit Date SURGERY CLEARANCE (DR. MCCLENDON) June 19, 2024 8:36am Gross hematuria June 21, 2024 6:25a m Cysto,Transurethal Resec Bladder,[place] June 27, 2024 3:22pm 1 Y FU August 30, 2024 7:53 am BLADDER CANCER September 21, 2024 7: 43am Reason for Visit Admit Date Pre-operative cardiovascular examination June 19, 2024 8:36am Abdominal aortic aneurysm (AAA) June 8:36am Atherosclerotic heart diseas e of [place] coronary artery without angina pectoris June 19, 2024 8:36am Essential hypertension June 19, 2024 8: 36am History of aortic valve replacement June 19, 2024 8:36am Hyperlipidemia June 19, 2024 8:36a m Smoking greater than 40 pack years June [id number] 8:36am Abdominal aortic aneurysm (AAA) August 7:53am Atherosclerotic heart diseas e of [place] coronary artery without angina pectoris August 30, [...] HIGH COMPLEX 45 MINS Jamin Wilcox MD [address] [place] [address] [facility] [address] [place] [address] Referral ID Status Reason Start Date Expiration Date Visits Requested Visits Authorized [id number] Authorized PCP Requested Referral Auto-Generate d Referral 2 02/03/2023 99 99 Summary Purpose Additional Source Comments Source Comments (unrecognize d section and content) In the event this informatio n is protected by the Federal Confidentiality of Alcohol and Drug Abuse Patient Records regulations: The Federal rules restrict any use of the information to criminally investigate or prosecute any alcohol or drug abuse patient.[facility] the event this information is protected by the Federal Confidentiality of Alcohol and Drug Abuse Patient Records regulations: The Federal rules restrict any use of the information to criminally investigate or prosecute any alcohol or drug abuse patient.[facility]In the event this information is protected by the Federal Confidentiality of Alcohol and Drug Abuse Patient Records regulations: The Federal rules restrict any use of the information to criminally investigate or prosecute any alcohol or drug abuse patient.[facility] the event this information is protected by the Federal Confidentiality of Alcohol and Drug Abuse Patient Records regulations: The Federal rules restrict any use of the information to criminally investigate or prosecute any alcohol or drug abuse patient.[facility] the event this information is protected by the Federal Confidentiality of Alcohol and Drug Abuse Patient Records regulations: The Federal rules restrict any use of the information to criminally investigate or prosecute any alcohol or drug abuse patient.[facility] the event this information is protected by the Federal Confidentiality of Alcohol and Drug Abuse Patient Records regulations: The Federal rules restrict any use of the information to criminally investigate or prosecute any alcohol or drug abuse patient.[facility] the event this information is protected by the Federal Confidentiality of Alcohol and Drug Abuse Patient Records regulations: The Federal rules restrict any use of the information to criminally investigate or prosecute any alcohol or drug abuse patient.[facility] the event this information is protected by the Federal Confidentiality of Alcohol and Drug Abuse Patient Records regulations: The Federal rules restrict any use of the information to criminally investigate or prosecute any alcohol or drug abuse patient.[facility]In the event this information is protected by the Federal Confidentiality of Alcohol and Drug Abuse Patient Records regulations: The Federal rules restrict any use of the information to criminally investigate or prosecute any alcohol or drug abuse patient.[facility]In the event this information is protected by the Federal Confidentiality of Alcohol and Drug Abuse Patient Records regulations: The Federal rules restrict any use of the information to criminally investigate or prosecute any alcohol or drug abuse patient.[facility]In the event this information is protected by the Federal Confidentiality of Alcohol and Drug Abuse Patient Records regulations: The Federal rules restrict any use of the information to criminally investigate or prosecute any alcohol or drug abuse patient.[facility]In the event this information is protected by the Federal Confidentiality of Alcohol and Drug Abuse Patient Records regulations: The Federal rules restrict any use of the information to criminally investigate or prosecute any alcohol or drug abuse patient.[facility]In the event this information is protected by the Federal Confidentiality of Alcohol and Drug Abuse Patient Records regulations: The Federal rules restrict any use of the information to criminally investigate or prosecute any alcohol or drug abuse patient.[facility]In the event this information is protected by the Federal Confidentiality of Alcohol and Drug Abuse Patient Records regulations: The Federal rules restrict any use of the information to criminally investigate or prosecute any alcohol or drug abuse patient.[facility]In the event this information is protected by the Federal Confidentiality of Alcohol and Drug Abuse Patient Records regulations: The Federal rules restrict any use of the information to criminally investigate or prosecute any alcohol or drug abuse patient.[facility]In the event this information is protected by the Federal Confidentiality of Alcohol and Drug Abuse Patient Records regulations: The Federal rules restrict any use of the information to criminally investigate or prosecute any alcohol or drug abuse patient.[facility]In the event this information is protected by the Federal Confidentiality of Alcohol and Drug Abuse Patient Records regulations: The Federal rules restrict any use of the information to criminally investigate or prosecute any alcohol or drug abuse patient.[facility]In the event this information is protected by the Federal Confidentiality of Alcohol and Drug Abuse Patient Records regulations: The Federal rules restrict any use of the information to criminally investigate or prosecute any alcohol or drug abuse patient.[facility]In the event this information is protected by the Federal Confidentiality of Alcohol and Drug Abuse Patient Records regulations: The Federal rules restrict any use of the information to criminally investigate or prosecute any alcohol or drug abuse patient.[facility]In the event this information is protected by the Federal Confidentiality of Alcohol and Drug Abuse Patient Records regulations: The Federal rules restrict any use of the information to criminally investigate or prosecute any alcohol or drug abuse patient.[facility]In the event this information is protected by the Federal Confidentiality of Alcohol and Drug Abuse Patient Records regulations: The Federal rules restrict any use of the information to criminally investigate or prosecute any alcohol or drug abuse patient.[facility]In the event this information is protected by the Federal Confidentiality of Alcohol and Drug Abuse Patient Records regulations: The Federal rules restrict any use of the information to criminally investigate or prosecute any alcohol or drug abuse patient.[facility]In the event this information is protected by the Federal Confidentiality of Alcohol and Drug Abuse Patient Records regulations: The Federal rules restrict any use of the information to criminally investigate or prosecute any alcohol or drug abuse patient.[facility]In the event this information is protected by the Federal Confidentiality of Alcohol and Drug Abuse Patient Records regulations: The Federal rules restrict any use of the information to criminally investigate or prosecute any alcohol or drug abuse patient.[facility]hillIn the event this information is protected by the Federal Confidentiality of Alcohol and Drug Abuse Patient Records regulations: The Federal rules restrict any use of the information to criminally investigate or prosecute any alcohol or drug abuse patient.[facility] the event this information is protected by the Federal Confidentiality of Alcohol and Drug Abuse Patient Records regulations: The Federal rules restrict any use of the information to criminally investigate or prosecute any alcohol or drug abuse patient.[facility]hillIn the event this information is protected by the Federal Confidentiality of Alcohol and Drug Abuse Patient Records regulations: The Federal rules restrict any use of the information to criminally investigate or prosecute any alcohol or drug abuse patient.[facility]hillIn the event this information is protected by the Federal Confidentiality of Alcohol and Drug Abuse Patient Records regulations: The Federal rules restrict any use of the information to criminally investigate or prosecute any alcohol or drug abuse patient.[facility]hillIn the event this information is protected by the Federal Confidentiality of Alcohol and Drug Abuse Patient Records regulations: The Federal rules restrict any use of the information to criminally investigate or prosecute any alcohol or drug abuse patient.[facility]hillIn the event this information is protected by the Federal Confidentiality of Alcohol and Drug Abuse Patient Records regulations: The Federal rules restrict any use of the information to criminally investigate or prosecute any alcohol or drug abuse patient.[facility]hillIn the event this information is protected by the Federal Confidentiality of Alcohol and Drug Abuse Patient Records regulations: The Federal rules restrict any use of the information to criminally investigate or prosecute any alcohol or drug abuse patient.[facility]hillIn the event this information is protected by the Federal Confidentiality of Alcohol and Drug Abuse Patient Records regulations: The Federal rules restrict any use of the information to criminally investigate or prosecute any alcohol or drug abuse patient.[facility]hillIn the event this information is protected by the Federal Confidentiality of Alcohol and Drug Abuse Patient Records regulations: The Federal rules restrict any use of the information to criminally investigate or prosecute any alcohol or drug abuse patient.[facility]hillIn the event this information is protected by the Federal Confidentiality of Alcohol and Drug Abuse Patient Records regulations: The Federal rules restrict any use of the information to criminally investigate or prosecute any alcohol or drug abuse patient.[facility]hillIn the event this information is protected by the Federal Confidentiality of Alcohol and Drug Abuse Patient Records regulations: The Federal rules restrict any use of the information to criminally investigate or prosecute any alcohol or drug abuse patient.[facility]hillIn the event this information is protected by the Federal Confidentiality of Alcohol and Drug Abuse Patient Records regulations: The Federal rules restrict any use of the information to criminally investigate or prosecute any alcohol or drug abuse patient.[facility]hillIn the event this information is protected by the Federal Confidentiality of Alcohol and Drug Abuse Patient Records regulations: The Federal rules restrict any use of the information to criminally investigate or prosecute any alcohol or drug abuse patient.[facility]hillIn the event this information is protected by the Federal Confidentiality of Alcohol and Drug Abuse Patient Records regulations: The Federal rules restrict any use of the information to criminally investigate or prosecute any alcohol or drug abuse patient.[facility]hillIn the event this information is protected by the Federal Confidentiality of Alcohol and Drug Abuse Patient Records regulations: The Federal rules restrict any use of the information to criminally investigate or prosecute any alcohol or drug abuse patient.[facility]hillIn the event this information is protected by the Federal Confidentiality of Alcohol and Drug Abuse Patient Records regulations: The Federal rules restrict any use of the information to criminally investigate or prosecute any alcohol or drug abuse patient.[facility]hillIn the event this information is protected by the Federal Confidentiality of Alcohol and Drug Abuse Patient Records regulations: The Federal rules restrict any use of the information to criminally investigate or prosecute any alcohol or drug abuse patient.[facility]hillIn the event this information is protected by the Federal Confidentiality of Alcohol and Drug Abuse Patient Records regulations: The Federal rules restrict any use of the information to criminally investigate or prosecute any alcohol or drug abuse patient.[facility]hillIn the event this information is protected by the Federal Confidentiality of Alcohol and Drug Abuse Patient Records regulations: The Federal rules restrict any use of the information to criminally investigate or prosecute any alcohol or drug abuse patient.[facility]hillIn the event this information is protected by the Federal Confidentiality of Alcohol and Drug Abuse Patient Records regulations: The Federal rules restrict any use of the information to criminally investigate or prosecute any alcohol or drug abuse patient.[facility]hillIn the event this information is protected by the Federal Confidentiality of Alcohol and Drug Abuse Patient Records regulations: The Federal rules restrict any use of the information to criminally investigate or prosecute any alcohol or drug abuse patient.[facility]hillIn the event this information is protected by the Federal Confidentiality of Alcohol and Drug Abuse Patient Records regulations: The Federal rules restrict any use of the information to criminally investigate or prosecute any alcohol or drug abuse patient.[facility]hillIn the event this information is protected by the Federal Confidentiality of Alcohol and Drug Abuse Patient Records regulations: The Federal rules restrict any use of the information to criminally investigate or prosecute any alcohol or drug abuse patient.[facility] Reason for Visit (unrecogniz ed section and content) Reason Comments Patient Update Reason Comments Critical Care Transport Reason Comments Appointment Reason Comments Surgical Followup Reason Comments Radiology CT Specialty Diagnoses / Procedures Referred By Contac t Referred To Contact CT IMAGING Diagnoses Malignant neoplasm of urinary bladder, unspecified site (HCC) Procedures CT CHEST W IVCON DIAGNOSTIC COMPUTED TOMOGRAPHY THORAX W/CONTRAST Codey Christianson MD [address] [place] [address] Phone: tel: fax: [place] [address] Referral ID Status Reason Start Date Expiration Date V isits Requested Visits Authorized [id number] Closed Auto-Generate d Referral 07/26/2024 08/25/2025 1 1 Reason Comments Bladder Cancer Reason Comments CASE 9822 Follow Up Reason Comments Established Patient Reason Comments Surgical Followup Orders Reason Comments CASE 9822 Discussion Reason Comments CASE 9822 Update Reason Comments Bladder Cancer Hematuria Reason Comments Materials Handling Coordinator - Other Reason Comments Materials Handling Coordinator - Other Introduction Reason Comments New Patient Reason Comments Orders Reason Comments Results Reason Comments Patient Education Reason Comments Radiology US Specialty Diagnoses / Procedures Referred By Contac t Referred To Contact [facility]AGING Diagnoses Malignant neoplasm of overlapping sites of bladder (HCC) ROSALIE (acute kidney injury) Hydroureter on left Procedures US KIDNEY/BLADDER US RETROPERITONEAL REAL TIME W/IMAGE COMPLETE Lakeisha Rivers, [address] [place] [address] Phone: tel: fax: [place] [address] Referral ID Status Reason Start Date Expiration Date V isits Requested Visits Authorized [id number] Closed Auto-Generate d Referral 09/05/2024 10/05/2025 [address] Specialty Diagnoses / Procedures Referred By Contac t Referred To Contact CT IMAGING Diagnoses Malignant neoplasm of urinary bladder, unspecified site (HCC) Other hydronephrosis Procedures CT ABD/PEL WO IVCON CT ABD & PELVIS W/O CONTRAST Stacy Gauthier MD [address] [place] [address] Phone: tel: fax: [place] [address] Referral ID Status Reason Start Date Expiration Date V isits Requested Visits Authorized [id number] Closed Auto-Generate d Referral 09/04/2024 09/20/2025 1 1 Reason Comments Opened In Error Reason Comments Chemotherapy Treatment Specialty Diagnoses / Procedures Referred By Contac t Referred To Contact Diagnoses Malignant neoplasm of urinary bladder, unspecified site (HCC) Lakeisha Rivers, DO [address] [place] [address] Phone: tel: fax: Hematology/Oncology [address] [place] [address] Phone: tel: fax: Referral ID Status Reason Start Date Expiration Date V isits Requested Visits Authorized [id number] Authorized 09/17/2024 12/16/2024 99 99 Reason Comments Radiotherapy On-treatment Visit Reason Comments Care Coordination CYCLE 1/DAY 1 POST T REATMENT CALL Reason Comments Non-Chemotherapy Treatment Reason Comments CADD Pump D/C Reason Comments Blood Draw (CVAD) Reason Comments PICC Line Reason Comments Established Patient Reason Comments Patient Education Discharge teaching-c ompleted radiation Care Teams (unrecognized sec tion and content) Research Epidemiologist Relationship Specialty Start Date End Date Padmini Carrasco MD [address] [place], [place] [id number] PCP - General Family Practice 01/24/19 Research Epidemiologist Relationship Specialty Start Date End Date Padmini Carrasco MD [address] [place], [place] [address] PCP - General Family Medicine 01/24/19 Research Epidemiologist Relationship Specialty Start Date End Date Padmini Carrasco MD [address] [facility] [place] [address] PCP - General Family Medicine 01/24/19 Research Epidemiologist Relationship Specialty Start Date End Date Padmini Carrasco MD [address] [facility] [place] [address] PCP - General Family Medicine 01/24/19 Research Epidemiologist Relationship Specialty Start Date End Date Padmini Carrasco MD [address] [facility], [place] [address] PCP - General Family Medicine 01/24/19 Team Status: Active Member Role Status Dates Dr. Ezekiel Carrasco MD Family Provider Active Dr. Ezekiel Carrasco MD Primary Care Provider Activ e Team Status: Inactive Member Role Status Dates Dr. Ezekiel Carrasco MD Primary Care Provider, Refe rring Provider Active Tc Subramanian RESTAURANT CASHIER, RESTAURANT CASHIER-C Attending Provider Active Team Status: Active Member [...] Primary Care Provider Activ e Tc Subramanian RESTAURANT CASHIER, RESTAURANT CASHIER-C Attending Provider, Referring Pro vider Active Team [...] Active Dr. Beatris Banks DO Admit Provider, Att ending Provider, Other Provider [...] Provider, Refe rring Provider Active Carmina Tee RESTAURANT CASHIER, RESTAURANT CASHIER-C Attending Provider Active Team Status: Active Member Role Status Dates Dr. Ezekiel Carrasco MD Primary Care Provider Activ e Tc Subramanian RESTAURANT CASHIER, RESTAURANT CASHIER-C Attending Provider Active Team Status: Active Member [...] Primary Care Provider Activ e Tc Subramanian RESTAURANT CASHIER, RESTAURANT CASHIER-C Attending Provider, Referring Pro vider Active Team Status: Inactive Member Role Status Dates Dr. Ezekiel Carrasco MD Primary Care Provider Activ e Tonia Biedenharn PA, PA Attending Provider Active Tc Subramanian RESTAURANT CASHIER, RESTAURANT CASHIER-C Referring Provider Active Team Status: Active Member [...] Primary Care Provider Activ e Tc Subramanian RESTAURANT CASHIER, RESTAURANT CASHIER-C Attending Provider Active Team Status: Active Member Role Status Dates Dr. Ezekiel Carrasco MD Primary Care Provider Activ e Dr. Kwame Alex MD Attending Provider Active Tonia Biedenharn PA, PA Referring Provider Active Team Status: Active Member Role Status Dates Dr. Ezekiel Carrasco MD Primary Care Provider Activ e Carmina Tee RESTAURANT CASHIER, RESTAURANT CASHIER-C Referring Provider, Other Pr ovider Active Dr. Noe Suarez MD Attending Provider Active Team Status: Active Member Role Status Dates Dr. Ezekiel Carrasco MD Primary Care Provider Activ e Carmina Tee RESTAURANT CASHIER, RESTAURANT CASHIER-C Attending Provider, Referrin g Provider Active Team Status: Inactive Member Role Status Dates Dr. Ezekiel Carrasco MD Primary Care Provider Activ e Tonia Biedenharn PA, PA Attending Provider Active Team Status: Inactive Member Role Status Dates Dr. Ezekiel Carrasco MD Primary Care Provider Activ e Carmina Tee RESTAURANT CASHIER, RESTAURANT CASHIER-C Attending Provider, Referrin g Provider Active Team Status: Inactive Member Role Status Dates Dr. Ezekiel Carrasco MD Primary Care Provider, Refe rring Provider Active Isela Kwok PA, PA Attending Provider Active Team Status: Active Member Role Status Dates Dr. Ezekiel Carrasco MD Primary Care Provider Activ e Carmina Tee RESTAURANT CASHIER, RESTAURANT CASHIER-C Referring Provider, Other Pr ovider Active Dr. [...] Provider, Refe rring Provider Active Dr. Noe Suarez MD Attending Provider Active Team Status: Active Member Role Status Dates Dr. Ezekiel Carrasco MD Primary Care Provider Activ e Tonia Jenkins PA Attending Provider, Other Prov ider Active Team Status: Inactive Member Role Status Dates Dr. Ezekiel Carrasco MD Primary Care Provider Activ e Tonia Jenkins PA Attending Provider Active Team Status: Active Member Role Status Dates Dr. Ezekiel Carrasco MD Primary Care Provider Activ e Tonia Doyle PA Attending Provider, Referring Provid er Active Team Status: Inactive Member Role Status Dates Dr. Ezekiel Carrasco MD Primary Care Provider Activ e Tonia Doyle PA Attending Provider, Referring Provid er Active Team Status: Inactive Member Role Status Dates Dr. Ezekiel Carrasco MD Primary Care Provider, Refe rring Provider Active Farheen Alexander RESTAURANT CASHIER, RESTAURANT CASHIER-C Attending Provider Active Team Status: Active Member Role Status Dates Dr. Ezekiel Carrasco MD Primary Care Provider Activ e Dr. Kwame Alex MD Attending Provider Active KALPANA Danielson Referring Provider Active Team Status: Inactive Member Role Status Dates Dr. Ezekiel Carrasco MD Primary Care Provider Activ e Farheen Alexander RESTAURANT CASHIER, RESTAURANT CASHIER-C Attending Provider, Referring P carrillo Active Team Status: Active Member Role Status Dates Dr. Ezekiel Carrasco MD Primary Care Provider Activ e Farheen Alexander RESTAURANT CASHIER, RESTAURANT CASHIER-C Attending Provider Active Team Status: Active Member [...] 2024 End: February 21, 2024 Carmina Tee RESTAURANT CASHIER, RESTAURANT CASHIER-C Attending Provider Active Start: February 21, 2024 End: February 21, 2024 Carmina Tee RESTAURANT CASHIER, RESTAURANT CASHIER-C Referring Provider Active Start: February 21, 2024 End: February 21, 2024 Team Status: Inactive Member Role Status Dates Dr. Padmini Carrasco MD Primary Care Provider Acti ve Start: March 23, 2024 End: March 23, 2024 Dr. Padmini Carrasco MD Referring Provider Active Start: March 23, 2024 End: March 23, 2024 Carmina Tee RESTAURANT CASHIER, RESTAURANT CASHIER-C Attending Provider Active Start: March 23, 2024 [...] 28, 2024 End: May 28, 2024 Dr. Jose J Mcclendon MD Attending Provider Active Start: May 28, 2024 End: May 28, 2024 Dr. Jose J Mcclendon MD Referring Provider Active Start: May 28, 2024 End: May 28, 2024 Team Status: Inactive Member Role Status Dates Dr. Padmini Carrasco MD Primary Care Provider Acti ve Start: June 19, 2024 End: June 19, 2024 Dr. Padmini Carrasco MD Referring Provider Active Start: June 19, 2024 End: June 19, 2024 KALAPNA Awad Attending Provider Active St art: June 19, 2024 End: June 19, 2024 Team Status: Inactive Member Role Status Dates Dr. Padmini Carrasco MD Primary Care Provider Acti ve Start: June 21, 2024 End: June 21, 2024 Dr. Jose J Mcclendon MD Attending Provider Active Start: June 21, 2024 End: June 21, 2024 Dr. Jose J Mcclendon MD Referring Provider Active Start: June 21, 2024 End: June 21, 2024 Team Status: Active Member Role Status Dates Dr. Padmini Carrasco MD Primary Care Provider Acti ve Start: June 21, 2024 Dr. Jose J Mcclendon MD Attending Provider Active Start: June 21, 2024 Dr. Jose J Mcclendon MD Referring Provider Active Start: June 21, 2024 Team Status: Active Member Role Status Dates Dr. Padmini Carrasco MD Primary Care Provider Acti ve Start: June 27, 2024 Dr. Jose J Mcclendon MD Attending Provider Active Start: June 27, 2024 Dr. Jose J Mcclendon MD Referring Provider Active Start: June 27, 2024 Team Status: Inactive Member Role Status Dates Dr. Padmini Carrasco MD Primary Care Provider Acti ve Start: June 27, 2024 End: June 28, 2024 Dr. Jose J Mcclendon MD Admit Provider Active Start: June 27, 2024 End: June 28, 2024 Dr. Jose J Mcclendon MD Attending Provider Active Start: June 27, 2024 End: June 28, 2024 Dr. Jose J Mcclendon MD Referring Provider Active Start: June [...] July 09, 2024 End: July 09, 2024 Research Epidemiologist Relationship Specialty Start Date End Date Padmini Carrasco MD [address] [facility] [place] [place] [id number] PCP - General Family Medicine 01/24/19 Jose J Mcclendon MD [address] [place] [id number] Referring Urology 07/19/24 Research Epidemiologist Relationship Specialty Start Date End Date Padmini Carrasco MD [address] [facility] [place] [place] [address] PCP - General Family Medicine 01/24/19 Jose J Mcclendon MD [address] [place] [id number] Referring Urology 07/19/24 Research Epidemiologist Relationship Specialty Start Date End Date Padmini Carrasco MD [address] [place], [place] [address] PCP - General Family Medicine 01/24/19 Jose J Mcclendon MD [address] [address] [place] [address] Referring Urology 07/19/24 Research Epidemiologist Relationship Specialty Start Date End Date Padmini Carrasco MD [address] [place], [place] [address] PCP - General Family Medicine 01/24/19 Jose J Mcclendon MD [address] [place] [address] Referring Urology 07/19/24 Research Epidemiologist Relationship Specialty Start Date End Date Padmini Carrasco MD [address] [place], [place] [address] PCP - General Family Medicine 01/24/19 Jose J Mcclendon MD [address] [address] [place] [address] Referring Urology 07/19/24 Research Epidemiologist Relationship Specialty Start Date End Date Padmini Carrasco MD [address] [address] PCP - General Family Medicine 01/24/19 Jose J Mcclendon MD [address] [address] [place] [address] Referring Urology 07/19/24 Research Epidemiologist Relationship Specialty Start Date End Date Padmini Carrasco MD [address] [place], [place] [address] PCP - General Family Medicine 01/24/19 Jose J Mcclendon MD [address] [place] [address] [place], [place] [address] Referring Urology 07/19/24 Kaern Post, RN Specialty Materials Handling Coordinator Hematology/Oncology 08/06/24 Research Epidemiologist Relationship Specialty Start Date End Date Padmini Carrasco MD [address] [place] [address] PCP - General Family Medicine 01/24/19 Jose J Mcclendon MD [address] [place] [address] [place] [address] Referring Urology 07/19/24 Karen Post, RN Specialty Materials Handling Coordinator Hematology/Oncology 08/06/24 Research Epidemiologist Relationship Specialty Start Date End Date Padmini Carrasco MD [address] [place] [address] PCP - General Family Medicine 01/24/19 Jose J Mcclendon MD [address] [place] [address] [place] [address] Referring Urology 07/19/24 Karen Post, RN Specialty Materials Handling Coordinator Hematology/Oncology 08/06/24 Research Epidemiologist Relationship Specialty Start Date End Date Padmini Carrasco MD [address] [place] [address] PCP - General Family Medicine 01/24/19 Jose J Mcclendon MD [address], [place] [address] Referring Urology 07/19/24 Karen Post, ANGELA Specialty Materials Handling Coordinator Hematology/Oncology 08/06/24 Research Epidemiologist Relationship Specialty Start Date End Date Padmini Carrasco MD [address] [place] [address], [place] [address] PCP - General Family Medicine 01/24/19 Jose J Mcclendon MD [address] [place] [address], [place] [address] Referring Urology 07/19/24 Karen Post RN Specialty Materials Handling Coordinator Hematology/Oncology 08/06/24 Research Epidemiologist Relationship Specialty Start Date End Date Padmini Carrasco MD [address] [place] [address], [place] [address] PCP - General Family Medicine 01/24/19 Jose J Mcclendon MD [address] [place] [address], [place] [address] Referring Urology 07/19/24 Karen Post, RN Specialty Materials Handling Coordinator Hematology/Oncology 08/06/24 Team Status: Active Member Role/Relationship [...] 28, 2024 End: May 28, 2024 Dr. Jose J Mcclendon MD Attending Provider Active Start: May 28, 2024 End: May 28, 2024 Dr. Jose J Mcclendon MD Referring Provider Active Start: May [...] 21, 2024 End: June 21, 2024 Dr. Jose J Mcclendon MD Attending Provider Active Start: June 21, 2024 End: June 21, 2024 Dr. Jose J Mcclendon MD Referring Provider Active Start: June 21, 2024 End: June 21, 2024 Team Status: Inactive Member Role/Relationship Status Dates Dr. Padmini Carrasco MD Primary Care Provider Acti ve Start: June 21, 2024 End: June 21, 2024 Dr. Jose J Mcclendon MD Attending Provider Active Start: June 21, 2024 End: June 21, 2024 Dr. Jose J Mcclendon MD Referring Provider Active Start: June 21, 2024 End: June 21, 2024 Team Status: Inactive Member Role/Relationship Status Dates Dr. Padmini Carrasco MD Primary Care Provider Acti ve Start: June 27, 2024 End: June 28, 2024 Dr. Jose J Mcclendon MD Admit Provider Active Start: June 27, 2024 End: June 28, 2024 Dr. Jose J Mcclendon MD Attending Provider Active Start: June 27, 2024 End: June 28, 2024 Dr. Jose J Mcclendon MD Referring Provider Active Start: June [...] 2024 End: August 30, 2024 Farheen Alexander RESTAURANT CASHIER, RESTAURANT CASHIER-C Attending Provider Active Start: August 30, 2024 End: August 30, 2024 Research Epidemiologist Relationship Specialty Start Date End Date Padmini Carrasco MD [address] [facility] [place] [place] [address] PCP - General Family Medicine 01/24/19 Jose J Mcclendon MD [address] [place] [address] Referring Urology 07/19/24 Karen Post, ANGELA Specialty Materials Handling Coordinator Hematology/Oncology 08/06/24 Stacy Gauthier MD [address] [place] [address] Physician Urology 09/05/24 Research Epidemiologist Relationship Specialty Start Date End Date Padmini Carrasco MD [address] [place] [address] PCP - General Family Medicine 01/24/19 Jose J Mcclendon MD [address] [address] Referring Urology 07/19/24 Karen Post, RN Specialty Materials Handling Coordinator Hematology/Oncology 08/06/24 Stacy Gauthier MD [address] [place] [address] Physician Urology 09/05/24 Research Epidemiologist Relationship Specialty Start Date End Date Padmini Carrasco MD [address] [place], [place] [address] PCP - General Family Medicine 01/24/19 Jose J Mcclendon MD [address] [address] Referring Urology 07/19/24 Karen Post, ANGELA Specialty Materials Handling Coordinator Hematology/Oncology 08/06/24 Stacy Gauthier MD [address] [place] [address] Physician Urology 09/05/24 Luigi Banks MD [address] [place] [address] Physician Radiation Oncology 09/06/24 Research Epidemiologist Relationship Specialty Start Date End Date Padmini Carrasco MD [address] [place] [address] PCP - General Family Medicine 01/24/19 Jose J Mcclendon MD [address] [address] Referring Urology 07/19/24 Karen Post, ANGELA Specialty Materials Handling Coordinator Hematology/Oncology 08/06/24 Stacy Gauthier MD [address] [place] [address] Physician Urology 09/05/24 Luigi Banks MD [address] [place] [address] Physician Radiation Oncology 09/06/24 Research Epidemiologist Relationship Specialty Start Date End Date Padmini Carrasco MD [address] [place] [address] PCP - General Family Medicine 01/24/19 Jose J Mcclendon MD [address] [place] [address] Referring Urology 07/19/24 Karen Post, ANGELA Specialty Materials Handling Coordinator Hematology/Oncology 08/06/24 Stacy Gauthier MD [address] [place] [address] Physician Urology 09/05/24 Luigi Banks MD [address] [place] [address] Physician Radiation Oncology 09/06/24 Research Epidemiologist Relationship Specialty Start Date End Date Padmini Carrasco MD [address] [place] [address] PCP - General Family Medicine 01/24/19 Jose J Mcclendon MD [address] [address] Referring Urology 07/19/24 Karen Post RN Specialty Materials Handling Coordinator Hematology/Oncology 08/06/24 Stacy Gauthier MD [address] [place] [address] Physician Urology 09/05/24 Luigi Banks MD [address] [place] [address] Physician Radiation Oncology 09/06/24 Research Epidemiologist Relationship Specialty Start Date End Date Padmini Carrasco MD [address] [place], [place] [address] PCP - General Family Medicine 01/24/19 Jose J Mcclendon MD [address] [place] [id number] Referring Urology 07/19/24 Karen Post RN Specialty Materials Handling Coordinator Hematology/Oncology 08/06/24 Stacy Gauthier MD [address] [place] [address] Physician Urology 09/05/24 Luigi Banks MD [address] [place] [address] Physician Radiation Oncology 09/06/24 Matthew Gu RN Specialty Materials Handling Coordinator Oncology 09/12/24 Lakeisha Rivers DO [address] [place] [address] Hematology/Oncology 09/12/24 Antoni Carmichael LISW [address] [place] [address] Edge Blacker Hematology/Oncology 09/12/24 Research Epidemiologist Relationship Specialty Start Date End Date Padmini Carrasco MD [address] [place] [address] PCP - General Family Medicine 01/24/19 Jose J Mcclendon MD [address] [address] [place] [address] Referring Urology 07/19/24 Karen Post, ANGELA Specialty Materials Handling Coordinator Hematology/Oncology 08/06/24 Stacy Gauthier MD [address] [place] [address] Physician Urology 09/05/24 Luigi Banks MD [address] [place] [address] Physician Radiation Oncology 09/06/24 Matthew Gu RN Specialty Materials Handling Coordinator Oncology 09/12/24 Lakeisha Rivers DO [address] [place] [address] Hematology/Oncology 09/12/24 Antoni Carmichael LISW [address] [place] [address] Edge Blacker Hematology/Oncology 09/12/24 Research Epidemiologist Relationship Specialty Start Date End Date Padmini Carrasco MD [address] [place] [address] PCP - General Family Medicine 01/24/19 Jose J Mcclendon MD [address] [address] [place] [address] Referring Urology 07/19/24 Karen Post, ANGELA Specialty Materials Handling Coordinator Hematology/Oncology 08/06/24 Stacy Gauthier MD [address] [place] [address] Physician Urology 09/05/24 Luigi Banks MD [address] [address] Physician Radiation Oncology 09/06/24 Matthew Gu, RN Specialty Materials Handling Coordinator Oncology 09/12/24 Lakeisha Rivers DO [address] [place] [address] Hematology/Oncology 09/12/24 Antoni Carmichael LISW [address] [place] [address] Edge [employer]er Hematology/Oncology 09/12/24 Research Epidemiologist Relationship Specialty Start Date End Date Padmini Carrasco MD [address] [facility] [address] PCP - General Family Medicine 01/24/19 Jose J Mcclendon MD [address] [place] [address] Referring Urology 07/19/24 Karen Post RN Specialty Materials Handling Coordinator Hematology/Oncology 08/06/24 Stacy Gauthier MD [address] [place] [address] Physician Urology 09/05/24 Luigi Banks MD [address] [place] [address] Physician Radiation Oncology 09/06/24 Matthew Gu, RN Specialty Materials Handling Coordinator Oncology 09/12/24 Lakeisha Rivers DO [address] [place] [address] Hematology/Oncology 09/12/24 Antoni Carmichael LISW [address] [place] [address] Edge [employer]er Hematology/Oncology 09/12/24 Research Epidemiologist Relationship Specialty Start Date End Date Padmini Carrasco MD [address] [place] [address] PCP - General Family Medicine 01/24/19 Jose J Mcclendon MD [address] [place] [address] [place] [address] Referring Urology 07/19/24 Karen Post, ANGELA Specialty Materials Handling Coordinator Hematology/Oncology 08/06/24 Stacy Gauthier MD [address] [place] [address] Physician Urology 09/05/24 Luigi Banks MD [address] [place] [address] Physician Radiation Oncology 09/06/24 Matthew Gu RN Specialty Materials Handling Coordinator Oncology 09/12/24 Lakeisha Rivers DO [address] [place] [address] Hematology/Oncology 09/12/24 Antoni Carmichael LISW [address] [place] [address] [employer]er Hematology/Oncology 09/12/24 Research Epidemiologist Relationship Specialty Start Date End Date Padmini Carrasco MD [address] [place] [address] PCP - General Family Medicine 01/24/19 Jose J Mcclendon MD [address] [address] [place] [address] Referring Urology 07/19/24 Karen Post, ANGELA Specialty Materials Handling Coordinator Hematology/Oncology 08/06/24 Stacy Gauthier MD [address] [place] [address] Physician Urology 09/05/24 Luigi Banks MD [address] [place] [address] Physician Radiation Oncology 09/06/24 Matthew Gu RN Specialty Materials Handling Coordinator Oncology 09/12/24 Lakeisha Rivers DO [address] [place] [address] Hematology/Oncology 09/12/24 Antoni Carmichael LISW [address] [place] [address] [employer]er Hematology/Oncology 09/12/24 Research Epidemiologist Relationship Specialty Start Date End Date Padmini Carrasco MD [address] [address] PCP - General Family Medicine 01/24/19 Jose J Mcclendon MD [address] [place] [address], [place] [address] Referring Urology 07/19/24 Karen Post, ANGELA Specialty Materials Handling Coordinator Hematology/Oncology 08/06/24 Stacy Gauthier MD [address] [place] [address] Physician Urology 09/05/24 Luigi Banks MD [address] [place] [address] Physician Radiation Oncology 09/06/24 Matthew Gu RN Specialty Materials Handling Coordinator Oncology 09/12/24 Lakeisha Rivers DO [address] [place] [address] Hematology/Oncology 09/12/24 Antoni Carmichael LISW [address] [place] [address] [employer]er Hematology/Oncology 09/12/24 Research Epidemiologist Relationship Specialty Start Date End Date Padmini Carrasco MD [address] [place] [address] PCP - General Family Medicine 01/24/19 Jose J Mcclendon MD [address] [place] [address] [place] [address] Referring Urology 07/19/24 Karen Post RN Specialty Materials Handling Coordinator Hematology/Oncology 08/06/24 Stacy Gauthier MD [address] [place] [address] Physician Urology 09/05/24 Luigi Banks MD [address] [place] [address] Physician Radiation Oncology 09/06/24 Matthew Gu RN Specialty Materials Handling Coordinator Oncology 09/12/24 Lakeisha Rivers DO [address] [place] [address] Hematology/Oncology 09/12/24 Antoni Carmichael LISW [address] [place] [address] Edge [employer]er Hematology/Oncology 09/12/24 Research Epidemiologist Relationship Specialty Start Date End Date Padmini Carrasco MD [address] [place] [address] PCP - General Family Medicine 01/24/19 Jose J Mcclendon MD [address] [address] Referring Urology 07/19/24 Karen Post RN Specialty Materials Handling Coordinator Hematology/Oncology 08/06/24 Stacy Gauthier MD [address] [place] [address] Physician Urology 09/05/24 Luigi Banks MD [address] [place] [address] Physician Radiation Oncology 09/06/24 Matthew Gu RN Specialty Materials Handling Coordinator Oncology 09/12/24 Lakeisha Rivers DO [address] [place] [address] Hematology/Oncology 09/12/24 Antoni Carmichael LISW [address] [place] [address] Edge [employer]er Hematology/Oncology 09/12/24 Team Status: Inactive Member Role/Relationship Status Dates [...] 21, 2024 End: June 21, 2024 Dr. Jose J Mcclendon MD Attending Provider Active Start: June 21, 2024 End: June 21, 2024 Dr. Jose J Mcclendon MD Referring Provider Active Start: June 21, 2024 End: June 21, 2024 Team Status: Inactive Member Role/Relationship Status Dates Dr. Padmini Carrasco MD Primary Care Provider Acti ve Start: June 21, 2024 End: June 21, 2024 Dr. Jose J Mcclendon MD Attending Provider Active Start: June 21, 2024 End: June 21, 2024 Dr. Jose J Mcclendon MD Referring Provider Active Start: June 21, 2024 End: June 21, 2024 Team Status: Inactive Member Role/Relationship Status Dates Dr. Padmini Carrasco MD Primary Care Provider Acti ve Start: June 27, 2024 End: June 28, 2024 Dr. Jose J Mcclendon MD Admit Provider Active Start: June 27, 2024 End: June 28, 2024 Dr. Jose J Mcclendon MD Attending Provider Active Start: June 27, 2024 End: June 28, 2024 Dr. Jose J Mcclendon MD Referring Provider Active Start: June [...] 2024 End: August 30, 2024 Farheen Alexander RESTAURANT CASHIER, RESTAURANT CASHIER-C Attending Provider Active Start: August 30, 2024 End: August 30, 2024 Team Status: Inactive Member Role/Relationship Status Dates Dr. Padmini Carrasco MD Primary Care Provider Acti ve Start: September 21, 2024 End: September 21, 2024 Dr. Lakeisha Rivers DO Attending Provider Active St art: September 21, 2024 End: September 21, 2024 Dr. Lakeisha Masci , DO Referring Provider Active St art: September 21, 2024 End: September 21, 2024 Research Epidemiologist Relationship Specialty Start Date End Date Padmini Carrasco MD [address] [place] [address] PCP - General Family Medicine 01/24/19 Jose J Mcclendon MD [address] [address] [place] [address] Referring Urology 07/19/24 Karen Post, ANGELA Specialty Materials Handling Coordinator Hematology/Oncology 08/06/24 Stacy Gauthier MD [address] [place], [place] [id number] Physician Urology 09/05/24 Luigi Banks MD [address] [place] [address] Physician Radiation Oncology 09/06/24 Matthew Gu RN Specialty Materials Handling Coordinator Oncology 09/12/24 Lakeisha Rivers DO [address] [place] [address] Hematology/Oncology 09/12/24 Antoni Carmichael LISW [address] [place] [address] [employer]er Hematology/Oncology 09/12/24 Research Epidemiologist Relationship Specialty Start Date End Date Padmini Carrasco MD [address] [facility] [place] [address] PCP - General Family Medicine 01/24/19 Jose J Mcclendon MD [address] [address] [place] [address] Referring Urology 07/19/24 Karen Post, ANGELA Specialty Materials Handling Coordinator Hematology/Oncology 08/06/24 Stacy Gauthier MD [address] [facility] [address] Physician Urology 09/05/24 Luigi Banks MD [address] [place] [place] [address] Physician Radiation Oncology 09/06/24 Matthew Gu RN Specialty Materials Handling Coordinator Oncology 09/12/24 Lakeisha Rivers DO [address] [place] [address] Hematology/Oncology 09/12/24 Antoni Carmichael LISW [address] [place] [address] [employer]er Hematology/Oncology 09/12/24 Research Epidemiologist Relationship Specialty Start Date End Date Padmini Carrasco MD [address] [place] [address] PCP - General Family Medicine 01/24/19 Jose J Mcclendon MD [address] [place] [address], [place] [address] Referring Urology 07/19/24 Karen Post RN Specialty Materials Handling Coordinator Hematology/Oncology 08/06/24 Stacy Gauthier MD [address] [facility] [place] [address] Physician Urology 09/05/24 Luigi Banks MD [address] [place] [address] Physician Radiation Oncology 09/06/24 Matthew Gu RN Specialty Materials Handling Coordinator Oncology 09/12/24 Lakeisha Rivers DO [address] [place] [address] Hematology/Oncology 09/12/24 Antoni Carmichael LISW [address] [place] [address] [employer] Hematology/Oncology 09/12/24 Research Epidemiologist Relationship Specialty Start Date End Date Padmini Carrasco MD [address] [place] [address] PCP - General Family Medicine 01/24/19 Jose J Mcclendon MD [address] [place] [address] [place] [address] Referring Urology 07/19/24 Karen Post RN Specialty Materials Handling Coordinator Hematology/Oncology 08/06/24 Stacy Gauthier MD [address] [place] [address] Physician Urology 09/05/24 Luigi Banks MD [address] [place] [address] Physician Radiation Oncology 09/06/24 Matthew Gu RN Specialty Materials Handling Coordinator Oncology 09/12/24 Lakeisha Rivers DO [address] [place] [address] Hematology/Oncology 09/12/24 Antoni Carmichael LISW [address] [place] [address] [employer]er Hematology/Oncology 09/12/24 Research Epidemiologist Relationship Specialty Start Date End Date Padmini Carrasco MD [address] [place] [address] PCP - General Family Medicine 01/24/19 Jose J Mcclendon MD [address] [address] [place] [address] Referring Urology 07/19/24 Karen Post, RN Specialty Materials Handling Coordinator Hematology/Oncology 08/06/24 Stacy Gauthier MD [address] [place] [address] Physician Urology 09/05/24 Luigi Banks MD [address] [place] [address] Physician Radiation Oncology 09/06/24 Matthew Gu RN Specialty Materials Handling Coordinator Oncology 09/12/24 Lakeisha Rivers DO [address] [place] [address] Hematology/Oncology 09/12/24 Antoni Carmichael LISW [address] [place] [address] [employer]er Hematology/Oncology 09/12/24 Research Epidemiologist Relationship Specialty Start Date End Date Padmini Carrasco MD [address] [place] [address] PCP - General Family Medicine 01/24/19 Jose J Mcclendon MD [address] [address] [place] [address] Referring Urology 07/19/24 Karen Post, ANGELA Specialty Materials Handling Coordinator Hematology/Oncology 08/06/24 Stacy Gauthier MD [address] [place] [address] Physician Urology 09/05/24 Luigi Banks MD [address] [place] [address] Physician Radiation Oncology 09/06/24 Matthew Gu, RN Specialty Materials Handling Coordinator Oncology 09/12/24 Lakeisha Rivers DO [address] [place] [address] Hematology/Oncology 09/12/24 Antoni Carmichael LISW [address] [place] [address] [employer] Hematology/Oncology 09/12/24 Research Epidemiologist Relationship Specialty Start Date End Date Padmini Carrasco MD [address] [place] [address] PCP - General Family Medicine 01/24/19 Jose J Mcclendon MD [address] [place] [address], [place] [address] Referring Urology 07/19/24 Karen Post, ANGELA Specialty Materials Handling Coordinator Hematology/Oncology 08/06/24 Stacy Gauthier MD [address] [place] [address] Physician Urology 09/05/24 Luigi Banks MD [address] [place] [address] Physician Radiation Oncology 09/06/24 Matthew Gu, RN Specialty Materials Handling Coordinator Oncology 09/12/24 Lakeisha Rivers DO [address] [place] [address] Hematology/Oncology 09/12/24 Antoni Carmichael LISW [address] [place] [address] [employer]er Hematology/Oncology 09/12/24 Research Epidemiologist Relationship Specialty Start Date End Date Padmini Carrasco MD [address] [place] [address] PCP - General Family Medicine 01/24/19 Jose J Mcclendon MD [address] [place], [place] [address] Referring Urology 07/19/24 Karen Post, ANGELA Specialty Materials Handling Coordinator Hematology/Oncology 08/06/24 Stacy Gauthier MD [address] [place] [address] Physician Urology 09/05/24 Luigi Banks MD [address] [place] [address] Physician Radiation Oncology 09/06/24 Matthew Gu RN Specialty Materials Handling Coordinator Oncology 09/12/24 Lakeisha Rivers DO [address] [place], [place] [address] Hematology/Oncology 09/12/24 Antoni Carmichael LISW [address] [place] [address] [employer]er Hematology/Oncology 09/12/24 Goals (unrecognized section and content) [...] ized section and content) DATE CREATED AUTHOR 09/14/2024 [facility] DATE CREATED AUTHOR AUTHOR'S ORGANIZ ATION 09/30/2024 [facility] DATE CREATED AUTHOR AUTHOR'S ORGANIZ ATION 11/01/2024 [facility] FOR RECORDS PERTAINING TO PATIENTS WHO ARE [...] BE BASED ON THE PRIMARY CLINICAL RECORDS. [employer] [facility]. provides no warranty or guarantee of the accuracy or completeness of information in this document.
--- OUTSIDE RECORDS SUMMARY | 2024-11-09 00:05 | XMS RPT_ITS | CCD ---
Author Organization [facility] CliniSyri Care Team Providers Care Private Branch Exchange Installer Name Role Phone Padmini Carrasco MD Primary Care Provider Dr. Ezekiel Carrasco Primary Care Provider [phone] Dr. Ezekiel Carrasco Referring Provider Dr. Raheem Farrar Attending Provider Padmini Carrasco MD Primary Care Provider Dr. Ezekiel Carrasco Primary Care Provider [phone] Dr. Ezekiel Carrasco Referring Provider Moris REMEDIAL TEACHER, REMEDIAL TEACHER-C Tc Larson Attending Provider Dr. Nhan Garland Emergency Provider Dr. Beatris Banks Attending Provider Dr. Beatris Banks Admit Provider Dr. Beatris Banks Other Provider Randal REMEDIAL TEACHER, REMEDIAL TEACHER-C Carmina Attending Provider [phone] Dr. Kwame Alex Attending Provider [phone] Raheem Farrar Attending Provider Biedenhartrung PA, PA Tonia Attending Provider [phone] Evelioedlior ACUNA, PA Tonia Other Provider Dr. Ezekiel Carrasco Primary Care Provider [phone] Dr. Nhan Garland Emergency Provider Dr. Beatris Banks Attending Provider Dr. Beatris Banks Admit Provider Dr. Beatris Banks Other Provider Dr. Ezekiel Carrasco Referring Provider Moris REMEDIAL TEACHER, REMEDIAL TEACHER-C Tc Larson Attending Provider Randal REMEDIAL TEACHER, REMEDIAL TEACHER-C Carmina Attending Provider [phone] Dr. Kwame Alex Attending Provider Gregory ACUNA, PA Tonia Referring Provider Dr. Raheem Farrar Attending Provider Gregory PA, PA Tnoia Attending Provider Gregory ACUNA, PA Tonia Other Provider Randal REMEDIAL TEACHER, REMEDIAL TEACHER-C Carmina Referring Provider [phone] Randal SLAUGHTER, REMEDIAL TEACHER-C Carmina Other Provider Dr. Noe Suarez Attending [...] SLAUGHTER, SUKHJINDER-C Carmina Attending Provider Benjamin SLAUGHTER, REMEDIAL TEACHER-C Farheen Attending Provider Dr. Ezekiel Carrasco Primary Care Provider [phone] Dr. Ezekiel Carrasco Referring Provider Randal REMEDIAL TEACHER, REMEDIAL TEACHER-C Carmina Attending Provider [phone] Benjamin REMEDIAL TEACHER, REMEDIAL TEACHER-C Farheen Attending Provider Dr. Raheem Farrar Attending Provider Luna CALLE, Dr. Bowen Primary Care Provider Eran CALLE, Dr. Camarillo Attending Provider Eran CALLE, Dr. Camarillo Referring Provider Eran CALLE, Dr. Camarillo Other Provider Luna CALLE, Dr. Bowen Referring Provider Randal REMEDIAL TEACHER-C, Carmina Attending Provider Randal REMEDIAL TEACHER-C, Carmina Referring Provider Luna CALLE, Dr. Bowen Attending Provider Dr. Jeffery Turpin DO Emergency Provider Luna CALLE, Dr. Bowen Primary Care Provider Luna CALLE, Dr. Bowen Referring Provider [phone] Dr. Jeffery Turpin DO Attending Provider Catrachito CALLE, Dr. Jose J Small Attending Provider Catrachito CALLE, Dr. Jose J Small Referring Provider [phone] Nito Jaramillo Attending Provider [phone] Luna CALLE, Dr. Bowen Primary Care Provider Randal REMEDIAL TEACHER-C, Carmina Attending Provider Catrachito CALLE, Dr. Jose J Small Admit Provider Padmini Carrasco MD Primary Care Provider Jose J Mcclendon MD Unavailable Vicente RN, Karen Carrasco MD, Dr. Bowen Primary Care Provider Luna CALLE, Dr. Bowen Referring Provider Benjamin REMEDIAL TEACHER-Quin, Farheen Attending Provider Abrahan CALLE, Stacy Ortega Unavailable Darren CALLE, Luigi Unavailable ABRAHAN, STACY F Attending Unavailable PADIMNI CARRASCO B Primary Care Unavailabl e ABRAHAN, [...] CALLE, Dr. Jose J Small Attending Provider [phone] Catrachito CALLE, Dr. Jose J Small Referring Provider [phone] Dr. Padmini Carrasco MD Attending Provider Tita HINSON, Dr. Curz Attending Provider Tita HINSON, Dr. Cruz Referring Provider Jose [...] Care Unavailable Ranney, Christopher Referring Unavailable Ranney, Logan Primary Care Unavailable Ranney, Christopher Referring Unavailable Randarrin, Zacer Attending Unavailable Marquise Barillas Attending Unavailable [facility] Unavailable Marquise Barillas Referring Unavailable Rangeismar, Logan Primary Care Unavailable Lakeisha Rivers Referring Unavailable Lakeisha Rivers Attending Unavailable [facility] Unavailable Marquise Barillas Attending Unavailable Marquise Barillas Referring Unavailable CatrachitoJose J Referring Unavailable Catrachito, Jose J Small Attending Unavailable Rangeismar, Logan Primary Care Unavailable Catrachito, Austin Admitting Unavailable Rangeismar, Zacer Attending Unavailable Rangeismar, Logan Primary Care Unavailable Ranney, Zacer Referring Unavailable Catrachito, Austin Referring Unavailable Catrachito, Jose J Small Attending Unavailable Rangeismar, Logan Primary Care Unavailable Catrachito, Jose J Small Referring Unavailable Catrachito, Jose J Small Attending Unavailable [facility], Logan Primary Care Unavailable Nito Rosales Attending Unavailable [facility], Logan Primary Care Unavailable Rangeismar, Christjeffreyer Referring Unavailable Rangeismar, Logan Primary Care Unavailable Ranney, Zacer Referring Unavailable Marquise Barillas Attending Unavailable Rangeismar, Logan Primary Care Unavailable Ranney, Christjeffreyer Referring Unavailable Marquise Barillas Attending Unavailable Rangeismar, Logan Primary Care Unavailable Rangeismar, Christopher Referring Unavailable Carmina Tee Attending Unavailable Rangeismar, Logan Primary Care Unavailable Marquise Barillas Attending Unavailable Marquise Barillas Consulting Unavailable Marquise Barillas Referring Unavailable SAMYTALMO, [facility] B Primary Care Unavailabl e STACY GAUTHIER Referring Unavailable RANTALMO, KIRK B Primary Care Unavailabl e LAKEISHA RIVERS Referring Unavailable LUNA, [facility] B Primary Care Unavailabl e LUNA, [facility] B Primary Care Unavailabl e RANDARRIN, [facility] B Primary Care Unavailabl e RANDARRIN, KIRK B Primary Care Unavailabl e LUIGI BANKS Attending Unavailable LAKEISHA RIVERS Referring Unavailable LUNA, ZACER B Primary Care Unavailabl e RANDARRIN, [facility] B Primary Care Unavailabl e LUNA, [facility] B Primary Care Unavailabl e LUIGI BANKS Attending Unavailable RANNEY, CHRISTOPHER B Primary Care Unavailabl e STACY GAUTHIER Referring Unavailable LAKEISHA RIVERS Attending Unavailable PADMINI CARRASCO Primary Care Unavailabl e SELF Referring Unavailable PADMINI CARRASCO Primary Care Unavailabl e [facility] Howell Primary Care Unavailabl e LAKEISHA RIVERS Referring Unavailable [facility] Lynda Primary Care Unavailabl e [facility] Lynda Primary Care Unavailabl e [facility] Lynda Primary Care Unavailabl e LUNA KIRK Lynda Primary Care Unavailabl e LUIGI BANKS Attending Unavailable [facility] Lynda Primary Care Unavailabl e [facility] Lynda Primary Care Unavailabl e [facility] Lynda Primary Care Unavailabl e LUIGI BANKS Attending Unavailable PADMINI CARRASCO Primary Care Unavailabl e [facility] Lynda Primary Care Unavailabl e [facility] Lynda Primary Care Unavailabl e LUIGI BANKS Referring Unavailable [facility] Howell Primary Care Unavailabl e [facility] Lynda Primary Care Unavailabl e [facility] Lynda Primary Care Unavailabl e LUNA KIRK Lynda Primary Care Unavailabl e LUNA KIRK Lynda Primary Care Unavailabl e [facility] Lynda Primary Care Unavailabl e [facility] Lynda Primary Care Unavailabl e [facility] Lynda Primary Care Unavailabl e LUNA KIRK Lynda Primary Care Unavailabl e [facility] Lynda Primary Care Unavailabl e LAKEISHA RIVERS Referring Unavailable PADMINI CARRASCO Primary Care Unavailabl e LUIGI BANKS Attending Unavailable PADMINI CARRASCO Primary Care Unavailabl e JOSE J MCCLENDON Referring Unavailable [facility] Lynda Primary Care Unavailabl e CHRISTIANSON, CODEY Attending Unavailable [facility] Lynda Primary Care Unavailabl e CHRISTIANSON, CODEY Referring Unavailable PADMINI CARRASCO Primary Care Unavailabl e CHRISTIANSON, CODEY Referring Unavailable [facility] Lynda Primary Care Unavailabl e [facility] Lynda Primary Care Unavailabl e [facility] Lynda Primary Care Unavailabl e LUIGI BANKS Attending Unavailable PADMINI CARRASCO Primary Care Unavailabl e [facility] Lynda Primary Care Unavailabl e [facility] B Primary Care Unavailabl e PADMINI CARRASCO [...] on above: Take 2 tablets by mo [facility] every 4 hours. amLODIPine 5 mg oral [...] 2023 8:28am supplement take 1 capsule by [facility] once daily cholecalciferol, vitamin D3, (VITAMIN D-3) 10 mcg (400 unit) cap Take 400 Units by mouth once daily. Active Lrstgnnevkb-Bpychgkey-Wqawaz er (20 sources) Start: 06-13-2024 Cwwpypyouhw-Rdfrmbczl-Zpvriu er (Trelegy Ellipta) 200-62.5-25 mcg blister with device Active 1 NMA INHALATION DAILY as needed for SOB June 13, 2024 12:00am Start: 03-23-2024 End: 06-13-2024 Kjfqaihcyor-Scdlnuavq-Uugmzw er (Trelegy Ellipta) 200-62.5-25 mcg blister with device Discontinued 1 NMA INHALATION DAILY 60 March 23, 2024 1:57pm June 13, 2024 10:19am Start: 03-23-2024 End: 06-13-2024 Bzozwvqtmpy-Kluxptcoo-Zptnxr er (Trelegy Ellipta) 200-62.5-25 mcg blister with device Discontinued 1 NMA INHALATION DAILY March 23, 2024 1:57pm June 13, 2024 10:19am Start: 03-23-2024 Fluticasone-Um eclidin-Vilanter (Trelegy Ellipta) 200-62.5-25 mcg blister with device Active 1 NMA INHALATION DAILY March 23, 2024 1:57pm Start: 01-27-2023 End: 03-23-2024 Vusunmqtsww-Vsdcgkyez-Ogtcbk er (Trelegy Ellipta) 200-62.5-25 mcg blister with device Discontinued 1 NMA INHALATION DAILY 60 January 27, 2023 1:00am March 23, 2024 1:58pm Start: 01-27-2023 End: 03-23-2024 Sbbueairvcy-Itnrafzhz-Hgtpqg er (Trelegy Ellipta) 200-62.5-25 mcg blister with device Discontinued 1 NMA INHALATION DAILY January 27, 2023 1:00am March 23, 2024 1:58pm Start: 01-27-2023 Fluticasone-Um eclidin-Vilanter (Trelegy Ellipta) 200-62.5-25 mcg blister with device Active 1 INH INHALATION DAILY January 27, 2023 1:00am Start: 01-27-2023 Fluticasone-Um eclidin-Vilanter (Trelegy Ellipta) 200-62.5-25 mcg blister with device Active 1 INH INHALATION DAILY January 27, 2023 12:00am ejiwdnpojsg-fsoamtgzt-tejbja er (TRELEGY ELLIPTA) 200-62.5-25 mcg inhalation powder (20 sources) take 1 puff(s) by inhalation once daily cinnbvpgvss-ojmiiowof-mpmecjvh (TRELEGY ELLIPTA) 200-62.5-25 mcg inhalation powder Inhale [...] Comment on above: Take 1 capsule by [facility] twice daily. enteric contrast (will be provided [...] on above: Take 1 capsule by mo [facility] once daily. 2 ml ondansetron 2 mg/ml injection (20 sources) Serotonin-3 Receptor Antagonist Start: 10-15-2024 End: 10-15-2024 8 mg, INTRAVENOUS, ONCE, 1 dose, On Tue10/15/24 at 0930 Start: 09-24-2024 End: 09-24-2024 8 mg, INTRAVENOUS, ONCE, 1 d ose, On Tue09/24/24 at 1100 Start: 09-12-2024 take 1 tablet by [facility] every eight hours as needed for nausea [...] 2024 12:00am June 13, 2024 10:18am Tiotropium [place] (20 sources) Anticholinergic Start: 2018 End: 2018 take 2.5 ug by inhalation once daily Tiotropium [place] (Spiriva Respimat) 2.5 mcg/actuation mist Discontinued 2 NMA INHALATION DAILY November 17, 2018 12:00am November 22, 2018 10:40am Start: 11-17-2018 End: 11-22-2018 take 1 puff(s) by inhalation once daily Tiotropium [place] (Spiriva Respimat) 2.5 mcg/actuation mist Discontinued 2 PUFF INHALATION DAILY November 16, 2018 11:00pm November 22, 2018 9:40am Start: 11-17-2018 End: 11-22-2018 take 1 puff(s) by inhalation once daily Tiotropium [place] (Spiriva Respimat) 2.5 mcg/actuation mist Discontinued 2 [...] Coronary atherosclerosis; Translations: [Atherosclerotic heart disease of [place] coronary artery with other forms of angina [...] Test Name Value Interpretation Reference Range Facility [facility] 10-29-2024 CNPN Telephone (RADTWS) ABELARDO IVORY ([id number]) 1950 M Date Time Provider Department 10/29/24 LUIGI BANKS During your visit today, we recorded the following information about you: Unruly Diaz RN 10/29/2024 12:11 PM Signed Patient's UA came back positive for a UTI. I attempted to call pt to notify him of this and had to leave a message. Dr Banks has sent in a prescription for an antibiotic to [facility]. Unruly Diaz, ANGELA 10/29/2024 1:09 PM Signed Pt returned call and transfer to pr was unsuccessful. I called pt and left him another voicemail with my name and the office number to call in if he has further questions. Unruly Diaz RN 10/29/2024 1:13 PM Signed Pt returned phone call and below information was given to patient. He will clam picker the prescription and get started on [...] 5 mg by mouth once daily. - sqwvzavkchd-tmqwchbve-h ilanter (TRELEGY ELLIPTA) 200-62.5-25 mcg inhalation powder [...] Status:Closed by UNRULY DIAZ on 10/29/24 Normal [facility] Bacteria Ur Culton 5 Bacteria identified [...] , Intermediate >32 , Resistant >64 Abnormal [facility] Comment on above: Performed By: #### 6 30-4, 04964-8 ####[facility] [id number] [address] OF [facility] Ale 10-26-2024 CNPN Telephone (LESLEYFlomio) ABELARDO IVORY ([id number]) 1950 M Date Time Provider Department 10/26/24 [...] 5 mg by mouth once daily. - ncvvqivyqfo-cilnxkfeu-r ilanter (TRELEGY ELLIPTA) 200-62.5-25 mcg inhalation powder [...] Status:Closed by NIGHAT HINES on 10/26/24 Normal [facility] Urinalysis complete panel (U )on 10-26-2024 Bacteria LM.HPF (Urine sed) [#/Area] Negative Normal Negative [facility] Comment on above: Order Comment: Speci men Type: URINE SPECIMENOrdering Facility: [facility] Address: [address] [place] [address] [place] [address] Performed By: #### 6 30-4, 25764-7 ####[facility]CL[facility] [id number] [place] [address] [place] Bilirubin Ql (U) Negative Normal Negative [facility] Comment on above: Order Comment: Speci men Type: URINE SPECIMENOrdering Facility: [facility] Address: [facility] [place] [address] Performed By: #### 6 30-4, 65230-7 ####[facility] [id number] [address] [place] [address] [place] Clarity (Unsp spec) Turbid Abnormal Clear [facility] Comment on above: Order Comment: Speci men Type: URINE SPECIMENOrdering Facility: [facility] Address: [address] [place] [address] Performed By: #### 6 30-4, 42636-7 ####[facility] [id number] [address], [facility] [place] Color (U) Yellow Normal Yellow [facility] Comment on above: Order Comment: Speci men Type: URINE SPECIMENOrdering Facility: [facility] Address: [address] [place] [address] Performed By: #### 6 30-4, 15721-2 ####[facility] [id number] [place] [id number] [place] Epithelial cells LM.HPF (Urine sed) [#/Area] None Seen Normal [facility] Comment on above: Order Comment: Speci men Type: URINE SPECIMENOrdering Facility: [facility] Address: [address] [place] [address] Performed By: #### 6 30-4, 49953-7 ####[facility] [id number] [place] [id number] [place] Glucose Test strip (U) [Mass/Vol] Negative Normal Negative [facility] Comment on above: Order Comment: Speci men Type: URINE SPECIMENOrdering Facility: [facility] Address: [address] [place] [address] Performed By: #### 6 30-4, 29733-7 ####[facility] [id number] [address] [place] [address] [place] Hemoglobin Ql (U) 2+ Abnormal Negative [facility] Comment on above: Order Comment: Speci men Type: URINE SPECIMENOrdering Facility: [facility] Address: [address] [place] [address] Performed By: #### 6 30-4, 03985-2 ####[facility] [id number] [address] [place] [address] [place] Hyaline casts (Urine sed) [#/Area] 1-3 /LPF Abnormal 0 /LPF [facility] Comment on above: Order Comment: Speci men Type: URINE SPECIMENOrdering Facility: [facility] Address: [address] [place] [address] Performed By: #### 6 30-4, 35274-0 ####[facility] [id number] [address], [place] [address] [place] Ketones Ql (U) Negative Normal Negative [facility] Comment on above: Order Comment: Speci men Type: URINE SPECIMENOrdering Facility: [facility] Address: [address] [place] [address] Performed By: #### 6 30-4, 29093-1 ####[facility] [id number] [address] [place] [address] [place] Leukocyte esterase Test strip Ql (U) 2+ Abnormal Negative [facility] Comment on above: Order Comment: Speci men Type: URINE SPECIMENOrdering Facility: [facility] Address: [address] [place], [place] [address] Performed By: #### 6 30-4, 60847-9 ####[facility] [id number] [address] [place] [address] [place] Nitrite Ql (U) Negative Normal Negative [facility] Comment on above: Order Comment: Speci men Type: URINE SPECIMENOrdering Facility: [facility] Address: [address] [place] [address] Performed By: #### 6 30-4, 10505-2 ####[facility] LABIA [id number] [place] [address] [place] pH (U) 6.5 [pH] Normal 5.0-8.0 [facility] Comment on above: Order Comment: Speci men Type: URINE SPECIMENOrdering Facility: [facility] Address: [address] [place] [address] Performed By: #### 6 30-4, 78307-9 ####[facility] LABIA [id number] [place] [address] [place] Protein (U) [Mass/Vol] 3+ Abnormal Negative [facility] Comment on above: Order Comment: Speci men Type: URINE SPECIMENOrdering Facility: [facility] Address: [address] [place] [address] Performed By: #### 6 30-4, 58633-6 ####[facility] LABIA [id number] [place] [address] [place] RBC LM.HPF (Urine sed) [#/Area] /[HPF] Abnormal 0-2 /HPF [facility] Comment on above: Order Comment: Speci men Type: URINE SPECIMENOrdering Facility: [facility] Address: [address] [place] [address] Performed By: #### 6 30-4, 50788-7 ####[facility] LABIA [id number] [place] [id number] [place] Specific gravity (U) [Rel density] 1.014 Normal 1.005-1.030 [facility] Comment on above: Order Comment: Speci men Type: URINE SPECIMENOrdering Facility: [facility] Address: [address] [place] [address] Performed By: #### 6 30-4, 01344-1 ####[facility] LABIA [id number] [place] [id number] [place] Urobilinogen Ql (U) 0.2 EU/dL Normal 0.2-1.0 EU/dL [facility] Comment on above: Order Comment: Speci men Type: URINE SPECIMENOrdering Facility: [facility] Address: [address] [place] [address] Performed By: #### 6 30-4, 23059-9 ####[facility]IA [id number] [place] [id number] [place] WBC LM.HPF (Urine sed) [#/Area] /[HPF] Abnormal 0-5 /HPF [facility] Comment on above: Order Comment: Speci men Type: URINE SPECIMENOrdering Facility: [facility] Address: [address] [place] [address] Performed By: #### 6 30-4, 96309-6 ####[facility]IA [id number] [place] [id number] [place] CNOVon 10-16-2024 CNOV Office Visit (RADTWS ) ABELARDO IVORY ([id number]) 1950 M Date Time Provider Department 10/16/24 [...] NAME: Abelardo Ivory PATIENT October 16, 2024 [facility] FACILITY/LOCATION: [place] NURSING NOTE TYPE: PROSTATE - MALE PELVIS Subjective Data No concerns voiced Additional Data Do you want to see a Energy Efficiency Finance Manager? No Status: Patient is male Stress Scale: On a scale of 0 to 10, what number best describes how much distress you have experienced in the past week?(0 being no distress and 10 being extreme distress) 1 Social work notified: Pt denied need to see drug abuse social worker at this time. Nursing Assessment Fatigue: increased [...] Bladder function: no problems. Urinary frequency (D/N): [id number]/2-3. SIGNED by: Nighat Hines RN Allergies As [...] 5 mg by mouth once daily. - zdaspxnrjwk-lrgiwaylg-s ilanter (TRELEGY ELLIPTA) 200-62.5-25 mcg inhalation powder [...] [D62] 02/12/2019 (more content not included)... Normal [facility] CBC W Auto Differential pane l (Bld)on 10-15-2024 Basophils (Bld) [#/Vol] [facility] Basophils/100 WBC (Bld) 0.5 % [facility] Differential cell count method Nom (Bld) Auto [place] Eosinophils (Bld) [#/Vol] 0.12 10*3/uL [facility] Eosinophils/100 WBC (Bld) 3.1 % [place] Erythrocyte distribution width (RBC) [Ratio] 14.6 % 11.5 - 15.0 % [place] Hematocrit (Bld) [Volume fraction] 32.5 % Low 39.0 - 51.0 % [place] Hemoglobin (Bld) [Mass/Vol] 10.7 g/dL Low 13.0 - 17.0 g/dL [place] Immature granulocytes (Bld) [#/Vol] [facility] Immature granulocytes/100 WBC (Bld) 0.3 % [place] Interpretation and review of laboratory results Abnormal [place] Lymphocytes (Bld) [#/Vol] 0.83 10*3/uL Low [place] Lymphocytes/100 WBC (Bld) 21.3 % [place] MCH (RBC) [Entitic mass] 31.0 pg 26.0 - 34.0 pg [place] MCHC (RBC) [Mass/Vol] 32.9 g/dL 30.5 - 36.0 g/dL [place] MCV (RBC) [Entitic vol] 94.2 fL 80.0 - 100.0 fL [place] Monocytes (Bld) [#/Vol] 0.61 10*3/uL [facility] Monocytes/100 WBC (Bld) 15.6 % [facility] Neutrophils (Bld) [#/Vol] 2.31 10*3/uL [place] Neutrophils/100 WBC (Bld) 59.2 % [place] Nucleated RBC (Bld) [#/Vol] NINF [place] Nucleated RBC/100 WBC (Bld) [Ratio] 0.0 % /100 WBC [place] Platelet mean volume (Bld) [Entitic vol] 8.9 fL Low 9.0 - 12.7 fL [place] Platelets (Bld) [#/Vol] 105 10*3/uL Low [place] Comment on above: No clot detected. RBC (Bld) [#/Vol] 3.45 10*6/uL Low 4.20 - 6.0 0 m/uL [place] WBC (Bld) [#/Vol] 3.90 10*3/uL [facility] Basophils (Bld) [#/Vol] 10*3/uL Normal <0.[address] [facility] Comment on above: Order Comment: Speci men Type: BLOOD SPECIMENOrdering Facility: [facility] Address: [address] [place] [address] Performed By: #### 5 7021-8 ####[facility] [id number] [place] [address] [place] Basophils/100 WBC (Bld) 0.5 % Normal [facility] Comment on above: Order Comment: Speci men Type: BLOOD SPECIMENOrdering Facility: [facility] Address: [address] [place] [address] Performed By: #### 5 7021-8 ####[facility] [id number] [place] [address] [place] Differential cell count method Nom (Bld) Auto Normal [facility] Comment on above: Order Comment: Speci men Type: BLOOD SPECIMENOrdering Facility: [facility] Address: [address] [place] [address] Performed By: #### 5 7021-8 ####[facility] [id number] [place] [address] [place] Eosinophils (Bld) [#/Vol] 0.12 10*3/uL Normal <0.46 [facility] Comment on above: Order Comment: Speci men Type: BLOOD SPECIMENOrdering Facility: [facility] Address: [address] [place] [address] Performed By: #### 5 7021-8 ####[facility] [id number] [place] [address] [place] Eosinophils/100 WBC (Bld) 3.1 % Normal [facility] Comment on above: Order Comment: Speci men Type: BLOOD SPECIMENOrdering Facility: [facility] Address: [address] [place] [address] Performed By: #### 5 7021-8 ####[facility]ENTERNCLI [id number] [place] [address] [place] Erythrocyte distribution width (RBC) [Ratio] 14.6 % Normal 11.5-15.0 [facility] Comment on above: Order Comment: Speci men Type: BLOOD SPECIMENOrdering Facility: [facility] Address: [address] [place] [address] Performed By: #### 5 7021-8 ####[facility]ENTERNCLIA [id number] [place] [address] [place] Hematocrit (Bld) [Volume fraction] 32.5 % Low 39.0-51.0 [facility] Comment on above: Order Comment: Speci men Type: BLOOD SPECIMENOrdering Facility: [facility] Address: [address] [place] [address] Performed By: #### 5 7021-8 ####[facility]ENTERNCLIA [id number] [place] [address] [place] Hemoglobin (Bld) [Mass/Vol] 10.7 g/dL Low 13.0-17.0 [facility] Comment on above: Order Comment: Speci men Type: BLOOD SPECIMENOrdering Facility: [facility] Address: [address] [place] [address] Performed By: #### 5 7021-8 ####[facility] ABELARDO [id number] [place] [address] [place] Immature granulocytes (Bld) [#/Vol] 10*3/uL Normal <0.10 [facility] Comment on above: Order Comment: Speci men Type: BLOOD SPECIMENOrdering Facility: [facility] Address: [address] [place] [address] Performed By: #### 5 7021-8 ####[facility]ENTERRICA [id number] [place] [address] [place] Immature granulocytes/100 WBC (Bld) 0.3 % Normal [facility] Comment on above: Order Comment: Speci men Type: BLOOD SPECIMENOrdering Facility: [facility] Address: [address] [place] [address] Performed By: #### 5 7021-8 ####[facility] [id number] [place] [address] [place] Lymphocytes (Bld) [#/Vol] 0.83 10*3/uL Low 1.00-4.00 [facility] Comment on above: Order Comment: Speci men Type: BLOOD SPECIMENOrdering Facility: [facility] Address: [address] [place] [address] Performed By: #### 5 7021-8 ####[facility]ENTERNCLIA [id number] [place] [address] [place] Lymphocytes/100 WBC (Bld) 21.3 % Normal [facility] Comment on above: Order Comment: Speci men Type: BLOOD SPECIMENOrdering Facility: [facility] Address: [address] [place] [address] Performed By: #### 5 7021-8 ####[facility]ENTERNCLIA [id number] [place] [address] [place] MCH (RBC) [Entitic mass] 31.0 pg Normal 26.0-34.0 [facility] Comment on above: Order Comment: Speci men Type: BLOOD SPECIMENOrdering Facility: [facility] Address: [address] [place] [address] Performed By: #### 5 7021-8 ####[facility] [id number] [place] [address] [place] MCHC (RBC) [Mass/Vol] 32.9 g/dL Normal 30.5-36.0 [facility] Comment on above: Order Comment: Speci men Type: BLOOD SPECIMENOrdering Facility: [facility] Address: [address] [place] [address] Performed By: #### 5 7021-8 ####[facility] [id number] [place] [address] [place] MCV (RBC) [Entitic vol] 94.2 fL Normal 80.0-100.0 [facility] Comment on above: Order Comment: Speci men Type: BLOOD SPECIMENOrdering Facility: [facility] Address: [address] [place] [address] Performed By: #### 5 7021-8 ####[facility] [id number] [place] [address] [place] Monocytes (Bld) [#/Vol] 0.61 10*3/uL Normal <0.87 [facility] Comment on above: Order Comment: Speci men Type: BLOOD SPECIMENOrdering Facility: [facility] Address: [address] [place] [address] Performed By: #### 5 7021-8 ####[facility] [id number] [place] [address] [place] Monocytes/100 WBC (Bld) 15.6 % Normal [facility] Comment on above: Order Comment: Speci men Type: BLOOD SPECIMENOrdering Facility: [facility] Address: [address] [place] [address] Performed By: #### 5 7021-8 ####[facility] [id number] [place] [address] [place] Neutrophils (Bld) [#/Vol] 2.31 10*3/uL Normal 1.45-7.50 [facility] Comment on above: Order Comment: Speci men Type: BLOOD SPECIMENOrdering Facility: [facility] Address: [address] [place] [address] Performed By: #### 5 7021-8 ####[facility] [id number] [place] [address] [place] Neutrophils/100 WBC (Bld) 59.2 % Normal [facility] Comment on above: Order Comment: Speci men Type: BLOOD SPECIMENOrdering Facility: [facility] Address: [address] [place] [address] Performed By: #### 5 7021-8 ####[facility] [id number] [place] [address] [place] Nucleated RBC (Bld) [#/Vol] 10*3/uL Normal <0.01 [facility] Comment on above: Order Comment: Speci men Type: BLOOD SPECIMENOrdering Facility: [facility] Address: [address] [place] [address] Performed By: #### 5 7021-8 ####[facility] [id number] [place] [address] [place] Nucleated RBC/100 WBC (Bld) [Ratio] 0.0 /100 WBC Normal [facility] Comment on above: Order Comment: Speci men Type: BLOOD SPECIMENOrdering Facility: [facility] Address: [address] [place] [address] Performed By: #### 5 7021-8 ####[facility] HOSPITALMILKA ROBISONWNCLIA [id number] [place] [address] [place] Platelet mean volume (Bld) [Entitic vol] 8.9 fL Low 9.0-12.7 [facility] Comment on above: Order Comment: Speci men Type: BLOOD SPECIMENOrdering Facility: [facility] Address: [address] [place] [address] Performed By: #### 5 7021-8 ####[facility] CENTERNCGREGORIOA [id number] [place] [address] [place] Platelets (Bld) [#/Vol] 105 10*3/uL Low 150-400 [facility] Comment on above: Order Comment: Speci men Type: BLOOD SPECIMENOrdering Facility: [facility] Address: [address] [place] [address] Result Comment: No c lot detected. Performed By: #### 5 7021-8 ####[facility] CENTERRICLIA [id number] [place] [address] [place] RBC (Bld) [#/Vol] 3.45 10*6/uL Low 4.20-6.00 [facility] Comment on above: Order Comment: Speci men Type: BLOOD SPECIMENOrdering Facility: [facility] Address: [address] [place] [address] Performed By: #### 5 7021-8 ####[facility]ENTERNCLIA [id number] [place] [address] [place] WBC (Bld) [#/Vol] 3.90 10*3/uL Normal 3.70-11.00 [facility] Comment on above: Order Comment: Speci men Type: BLOOD SPECIMENOrdering Facility: [facility] Address: [address], [place] [address] Performed By: #### 5 7021-8 ####[facility] JENNIFER ZHUO [id number] [place] [id number] [place] CNOVSPon 10-12-2024 CNOVSP Visit (SP) Office (VAIBHAV) ABELARDO IVORY ([id number]) 1950 M Date Time Provider Department 10/12/24 [...] with chemo flush. Path below. Referred to [facility] b/c patient declined cystectomy. Per Dr. [...] ppd since age 15 years Pathology from [facility] reviewed at main campus: A. Urinary bladder, [...] cough. Clear sputum. Sees Dr. Zuñiga at [facility]. Smokes about 1/2 ppd. No alcohol. Interval [...] Take 5 mg by mouth once daily. isjpmgbhpui-migqwzbmu-i ilanter (TRELEGY ELLIPTA) 200-62.5-25 mcg inhalation powder Inhale 1 puff as instructed once daily. acetaminophen (TYLENOL) 325 mg tablet Take 2 tablets by mouth every 4 hours. rosuvastatin (CRESTOR) 5 mg tablet Take 5 mg by mouth once (more content not included)... Normal [facility] CBC W Auto Differential pane l (Bld)on 10-09-2024 Basophils (Bld) [#/Vol] [facility] C [facility] Basophils/100 WBC (Bld) 0.4 % [facility] Differential cell count method Nom (Bld) Auto [place] Eosinophils (Bld) [#/Vol] 0.11 10*3/uL [facility] Eosinophils/100 WBC (Bld) 2.0 % [place] Erythrocyte distribution width (RBC) [Ratio] 14.1 % 11.5 - 15.0 % [place] Hematocrit (Bld) [Volume fraction] 32.7 % Low 39.0 - 51.0 % [place] Hemoglobin (Bld) [Mass/Vol] 10.8 g/dL Low 13.0 - 17.0 g/dL [place] Immature granulocytes (Bld) [#/Vol] [facility] Immature granulocytes/100 WBC (Bld) 0.4 % [place] Interpretation and review of laboratory results Abnormal [place] Lymphocytes (Bld) [#/Vol] 1.08 10*3/uL [place] Lymphocytes/100 WBC (Bld) 19.4 % [place] MCH (RBC) [Entitic mass] 30.9 pg 26.0 - 34.0 pg [place] MCHC (RBC) [Mass/Vol] 33.0 g/dL 30.5 - 36.0 g/dL [place] MCV (RBC) [Entitic vol] 93.4 fL 80.0 - 100.0 fL [place] Monocytes (Bld) [#/Vol] 0.45 10*3/uL [facility] Monocytes/100 WBC (Bld) 8.1 % [facility] Neutrophils (Bld) [#/Vol] 3.88 10*3/uL [place] Neutrophils/100 WBC (Bld) 69.7 % [place] Nucleated RBC (Bld) [#/Vol] [facility] [place] Nucleated RBC/100 WBC (Bld) [Ratio] 0.0 % /100 WBC [place] Platelet mean volume (Bld) [Entitic vol] 9.1 fL 9.0 - 12.7 fL [place] Platelets (Bld) [#/Vol] 55 10*3/uL Low [facility] Comment on above: No clot detected. RBC (Bld) [#/Vol] 3.50 10*6/uL Low 4.20 - 6.0 0 m/uL [place] WBC (Bld) [#/Vol] 5.56 10*3/uL [facility] Basophils (Bld) [#/Vol] 10*3/uL Normal <0.11 [facility] Comment on above: Order Comment: Speci men Type: BLOOD SPECIMENOrdering Facility: [facility] Address: [address] [place] [address] Performed By: #### 5 7021-8 ####[facility] J[facility]ER[facility] [id number] [address] [place] Basophils/100 WBC (Bld) 0.4 % Normal [facility] Comment on above: Order Comment: Speci men Type: BLOOD SPECIMENOrdering Facility: [facility] Address: [address] [place], [place] [address] Performed By: #### 5 7021-8 ####[facility] MILLWRICLIA [id number] [place] [address] [place] Differential cell count method Nom (Bld) Auto Normal [facility] Comment on above: Order Comment: Speci men Type: BLOOD SPECIMENOrdering Facility: [facility] Address: [address] [place] [address] Performed By: #### 5 7021-8 ####[facility] CENTERRICLIA [id number] [place] [address] [place] Eosinophils (Bld) [#/Vol] 0.11 10*3/uL Normal <0.46 [facility] Comment on above: Order Comment: Speci men Type: BLOOD SPECIMENOrdering Facility: [facility] Address: [address] [place] [address] Performed By: #### 5 7021-8 ####[facility] CENTERRICLIA [id number] [place] [address] [place] Eosinophils/100 WBC (Bld) 2.0 % Normal [facility] Comment on above: Order Comment: Speci men Type: BLOOD SPECIMENOrdering Facility: [facility] Address: [address] [place] [address] Performed By: #### 5 7021-8 ####[facility] CENTERRICLIA [id number] [place] [address] [place] Erythrocyte distribution width (RBC) [Ratio] 14.1 % Normal 11.5-15.0 [facility] Comment on above: Order Comment: Speci men Type: BLOOD SPECIMENOrdering Facility: [facility] Address: [address] [place] [address] Performed By: #### 5 7021-8 ####[facility]ENTERNCLIA [id number] [place] [address] [place] Hematocrit (Bld) [Volume fraction] 32.7 % Low 39.0-51.0 [facility] Comment on above: Order Comment: Speci men Type: BLOOD SPECIMENOrdering Facility: [facility] Address: [address] [place] [address] Performed By: #### 5 7021-8 ####[facility] [id number] [place] [address] [place] Hemoglobin (Bld) [Mass/Vol] 10.8 g/dL Low 13.0-17.0 [facility] Comment on above: Order Comment: Speci men Type: BLOOD SPECIMENOrdering Facility: [facility] Address: [address] [place] [address] Performed By: #### 5 7021-8 ####[facility] [id number] [place] [address] [place] Immature granulocytes (Bld) [#/Vol] 10*3/uL Normal <0.10 [facility] Comment on above: Order Comment: Speci men Type: BLOOD SPECIMENOrdering Facility: [facility] Address: [address] [place] [address] Performed By: #### 5 7021-8 ####[facility] [id number] [place] [address] [place] Immature granulocytes/100 WBC (Bld) 0.4 % Normal [facility] Comment on above: Order Comment: Speci men Type: BLOOD SPECIMENOrdering Facility: [facility] Address: [address] [place] [address] Performed By: #### 5 7021-8 ####[facility] [id number] [place] [address] [place] Lymphocytes (Bld) [#/Vol] 1.08 10*3/uL Normal 1.00-4.00 [facility] Comment on above: Order Comment: Speci men Type: BLOOD SPECIMENOrdering Facility: [facility] Address: [address] [place] [address] Performed By: #### 5 7021-8 ####[facility] ANGELICAMAGGI [id number] [place] [address] [place] Lymphocytes/100 WBC (Bld) 19.4 % Normal [facility] Comment on above: Order Comment: Speci men Type: BLOOD SPECIMENOrdering Facility: [facility] Address: [address] [place] [address] Performed By: #### 5 7021-8 ####[facility] CENTERNCSATISH [id number] [place] [address] [place] MCH (RBC) [Entitic mass] 30.9 pg Normal 26.0-34.0 [facility] Comment on above: Order Comment: Speci men Type: BLOOD SPECIMENOrdering Facility: [facility] Address: [address] [place] [address] Performed By: #### 5 7021-8 ####[facility] CENTERNCAristides [id number] [place] [address] [place] MCHC (RBC) [Mass/Vol] 33.0 g/dL Normal 30.5-36.0 [facility] Comment on above: Order Comment: Speci men Type: BLOOD SPECIMENOrdering Facility: [facility] Address: [address] [place] [address] Performed By: #### 5 7021-8 ####[facility] CENTERNCLIAristides [id number] [place] [address] [place] MCV (RBC) [Entitic vol] 93.4 fL Normal 80.0-100.[address] [facility] Comment on above: Order Comment: Speci men Type: BLOOD SPECIMENOrdering Facility: [facility] Address: [address] [place] [address] Performed By: #### 5 7021-8 ####[facility] MILLWNCLIA [id number] [place] [address] [place] Monocytes (Bld) [#/Vol] 0.45 10*3/uL Normal <0.87 [facility] Comment on above: Order Comment: Speci men Type: BLOOD SPECIMENOrdering Facility: [facility] Address: [address] [place] [address] Performed By: #### 5 7021-8 ####[facility] COL[facility]BUSLIA [id number] [place] [address] [place] Monocytes/100 WBC (Bld) 8.1 % Normal [facility] Comment on above: Order Comment: Speci men Type: BLOOD SPECIMENOrdering Facility: [facility] Address: [address] [place] [address] Performed By: #### 5 7021-8 ####[facility] COLUMBUSLIA [id number] [place] [address] [place] Neutrophils (Bld) [#/Vol] 3.88 10*3/uL Normal 1.45-7.50 [facility] Comment on above: Order Comment: Speci men Type: BLOOD SPECIMENOrdering Facility: [facility] Address: [address] [place] [address] Performed By: #### 5 7021-8 ####[facility] COLUMBUSLIA [id number] [place] [address] [place] Neutrophils/100 WBC (Bld) 69.7 % Normal [facility] Comment on above: Order Comment: Speci men Type: BLOOD SPECIMENOrdering Facility: [facility] Address: [address] [place] [address] Performed By: #### 5 7021-8 ####[facility]ENTERNCLIA [id number] [place] [address] [place] Nucleated RBC (Bld) [#/Vol] 10*3/uL Normal <0.01 [facility] Comment on above: Order Comment: Speci men Type: BLOOD SPECIMENOrdering Facility: [facility] Address: [address] [place] [address] Performed By: #### 5 7021-8 ####[facility] [id number] [place] [address] [place] Nucleated RBC/100 WBC (Bld) [Ratio] 0.0 /100 WBC Normal [facility] Comment on above: Order Comment: Speci men Type: BLOOD SPECIMENOrdering Facility: [facility] Address: [address] [place] [address] Performed By: #### 5 7021-8 ####[facility] CENTERNCRIVERTON [facility] [id number] [place] [address] [place] Platelet mean volume (Bld) [Entitic vol] 9.1 fL Normal 9.0-12.7 [facility] Comment on above: Order Comment: Speci men Type: BLOOD SPECIMENOrdering Facility: [facility] Address: [address] [place] [address] Performed By: #### 5 7021-8 ####[facility] [id number] [place] [address] [place] Platelets (Bld) [#/Vol] 55 10*3/uL Low 150-[address] [facility] Comment on above: Order Comment: Speci men Type: BLOOD SPECIMENOrdering Facility: [facility] Address: [address] [place] [address] Result Comment: No c lot detected. Performed By: #### 5 7021-8 ####[facility] [id number] [place] [address] [place] RBC (Bld) [#/Vol] 3.50 10*6/uL Low 4.20-6.00 [facility] Comment on above: Order Comment: Speci men Type: BLOOD SPECIMENOrdering Facility: [facility] Address: [address] [place] [address] Performed By: #### 5 7021-8 ####[facility]ENTERNCLIA [id number] [place] [address] [place] WBC (Bld) [#/Vol] 5.56 10*3/uL Normal 3.70-11.00 [facility] Comment on above: Order Comment: Speci men Type: BLOOD SPECIMENOrdering Facility: [facility] Address: [address] [place] [address] Performed By: #### 5 7021-8 ####[facility] CENTERNCLIA [id number] [address] [place] CNOVon 10-09-2024 CNOV Office Visit (RADTWS ) ABELARDO IVORY ([id number]) 1950 M Date Time Provider Department 10/09/24 10:15 AM LUIGI BANKS RADTWS During your visit today, we recorded the following information about you: Temperature Pulse Blood pressure 97.6 degrees 61/minute 105/63 Shreya Grace, ANGELA 10/09/2024 10:02 AM Signed Radiation Therapy - Nursing Note (OTV) PATIENT NAME: Abelardo Ivory PATIENT October 09, 2024 [facility] FACILITY/LOCATION: [facility] NOTE TYPE: PROSTATE - MALE PELVIS Subjective Data Pt states his pain is much in better, not taking pain meds much at this time Additional Data Do you want to see a Energy Efficiency Finance Manager? No Status: Patient is male Stress Scale: On a scale of 0 to 10, what number best describes how much distress you have experienced in the past week?(0 being no distress and 10 being extreme distress) 1 Social work notified: Pt denied need to see drug abuse social worker at this time. Nursing Assessment Fatigue: increased [...] 5 mg by mouth once daily. - ecqzigsjbbr-fumymbazk-h ilanter (TRELEGY ELLIPTA) 200-62.5-25 mcg inhalation powder [...] without r (more content not included)... Normal [facility] CNOVon 10-02-2024 CNOV Office Visit (RADTWS ) ABELARDO IVORY ([id number]) 1950 M Date Time Provider Department 10/02/24 10:15 AM LUIGI BANKS During your visit today, we recorded the following information about you: Temperature Pulse Respiration Blood pressure 98.2 degrees 59/minute 14/minute 148/74 Unruly Diaz, RN 10/02/2024 10:20 AM Signed Radiation Therapy - Nursing Note (OTV) PATIENT NAME: Abelardo Ivory PATIENT October 02, 2024 [facility] FACILITY/LOCATION: [place] NURSING NOTE TYPE: PROSTATE - MALE PELVIS Subjective Data No complaints Additional Data Do you want to see a Energy Efficiency Finance Manager? No Status: Patient is male Stress Scale: [...] 5 mg by mouth once daily. - bglxkwczzrz-loiotknon-z ilanter (TRELEGY ELLIPTA) 200-62.5-25 mcg inhalation powder [...] [D62] 02/12 (more content not included)... Normal [facility] CBC W Auto Differential pane l (Bld)on 10-01-2024 Basophils (Bld) [#/Vol] 0.03 10*3/uL [facility] Basophils/100 WBC (Bld) 0.7 % [facility] Differential cell count method Nom (Bld) Auto [place] Eosinophils (Bld) [#/Vol] 0.04 10*3/uL [facility] Eosinophils/100 WBC (Bld) 0.9 % [place] Erythrocyte distribution width (RBC) [Ratio] 13.8 % 11.5 - 15.0 % [place] Hematocrit (Bld) [Volume fraction] 33.8 % Low 39.0 - 51.0 % [place] Hemoglobin (Bld) [Mass/Vol] 10.9 g/dL Low 13.0 - 17.0 g/dL [place] Immature granulocytes (Bld) [#/Vol] 0.03 10*3/uL [facility] [place] Immature granulocytes/100 WBC (Bld) 0.7 % [place] Interpretation and review of laboratory results Abnormal [place] Lymphocytes (Bld) [#/Vol] 1.25 10*3/uL [place] Lymphocytes/100 WBC (Bld) 28.7 % [place] MCH (RBC) [Entitic mass] 30.4 pg 26.0 - 34.0 pg [place] MCHC (RBC) [Mass/Vol] 32.2 g/dL 30.5 - 36.0 g/dL [place] MCV (RBC) [Entitic vol] 94.4 fL 80.0 - 100.0 fL [place] Monocytes (Bld) [#/Vol] 0.23 10*3/uL [facility] Monocytes/100 WBC (Bld) 5.3 % [facility] Neutrophils (Bld) [#/Vol] 2.78 10*3/uL [place] Neutrophils/100 WBC (Bld) 63.7 % [place] Nucleated RBC (Bld) [#/Vol] [facility] [place] Nucleated RBC/100 WBC (Bld) [Ratio] 0.0 % /100 WBC [place] Platelet mean volume (Bld) [Entitic vol] 8.9 fL Low 9.0 - 12.7 fL [place] Platelets (Bld) [#/Vol] 107 10*3/uL Low [place] RBC (Bld) [#/Vol] 3.58 10*6/uL Low 4.20 - 6.0 0 m/uL [place] WBC (Bld) [#/Vol] 4.36 10*3/uL [facility] Basophils (Bld) [#/Vol] 0.03 10*3/uL Normal <0.11 [facility] Comment on above: Order Comment: Speci men Type: BLOOD SPECIMENOrdering Facility: [facility] Address: [address] [place] [address] Performed By: #### 5 7021-8 ####[facility] ERWNCLIA [id number] [place] [address] [place] Basophils/100 WBC (Bld) 0.7 % Normal [facility] Comment on above: Order Comment: Speci men Type: BLOOD SPECIMENOrdering Facility: [facility] Address: [address] [place] [address] Performed By: #### 5 7021-8 ####[facility] [id number] [place] [address] [place] [place] Differential cell count method Nom (Bld) Auto Normal [facility] Comment on above: Order Comment: Speci men Type: BLOOD SPECIMENOrdering Facility: [facility] Address: [address] [place] [address] Performed By: #### 5 7021-8 ####[facility]IA [id number] [place] [address] [place] Eosinophils (Bld) [#/Vol] 0.04 10*3/uL Normal <0.46 [facility] Comment on above: Order Comment: Speci men Type: BLOOD SPECIMENOrdering Facility: [facility] Address: [address] [place] [address] Performed By: #### 5 7021-8 ####[facility]IA [id number] [place] [address] [place] Eosinophils/100 WBC (Bld) 0.9 % Normal [facility] Comment on above: Order Comment: Speci men Type: BLOOD SPECIMENOrdering Facility: [facility] Address: [address] [place] [address] Performed By: #### 5 7021-8 ####[facility]LIA [id number] [place] [address] [place] Erythrocyte distribution width (RBC) [Ratio] 13.8 % Normal 11.5-15.0 [facility] Comment on above: Order Comment: Speci men Type: BLOOD SPECIMENOrdering Facility: [facility] Address: [address] [place] [address] Performed By: #### 5 7021-8 ####[facility] [id number] [place] [address] [place] Hematocrit (Bld) [Volume fraction] 33.8 % Low 39.0-51.0 [facility] Comment on above: Order Comment: Speci men Type: BLOOD SPECIMENOrdering Facility: [facility] Address: [address] [place] [address] Performed By: #### 5 7021-8 ####[facility] [id number] [place] [address] [place] Hemoglobin (Bld) [Mass/Vol] 10.9 g/dL Low 13.0-17.0 [facility] Comment on above: Order Comment: Speci men Type: BLOOD SPECIMENOrdering Facility: [facility] Address: [address] [place] [address] Performed By: #### 5 7021-8 ####[facility]ENTERBRIAN [id number] [place] [address] [place] Immature granulocytes (Bld) [#/Vol] 0.03 10*3/uL Normal <0.10 [facility] Comment on above: Order Comment: Speci men Type: BLOOD SPECIMENOrdering Facility: [facility] Address: [address] [place] [address] Performed By: #### 5 7021-8 ####[facility]ENTERNCLIA [id number] [place] [address] [place] Immature granulocytes/100 WBC (Bld) 0.7 % Normal [facility] Comment on above: Order Comment: Speci men Type: BLOOD SPECIMENOrdering Facility: [facility] Address: [address] [place] [address] Performed By: #### 5 7021-8 ####[facility] [id number] [place] [address] [place] Lymphocytes (Bld) [#/Vol] 1.25 10*3/uL Normal 1.00-4.00 [facility] Comment on above: Order Comment: Speci men Type: BLOOD SPECIMENOrdering Facility: [facility] Address: [address] [place] [address] Performed By: #### 5 7021-8 ####[facility] [id number] [place] [address] [place] Lymphocytes/100 WBC (Bld) 28.7 % Normal [facility] Comment on above: Order Comment: Speci men Type: BLOOD SPECIMENOrdering Facility: [facility] Address: [address] [place] [address] Performed By: #### 5 7021-8 ####[facility] [id number] [place] [address] [place] MCH (RBC) [Entitic mass] 30.4 pg Normal 26.0-34.0 [facility] Comment on above: Order Comment: Speci men Type: BLOOD SPECIMENOrdering Facility: [facility] Address: [address] [place] [address] Performed By: #### 5 7021-8 ####[facility] [id number] [place] [address] [place] MCHC (RBC) [Mass/Vol] 32.2 g/dL Normal 30.5-36.0 [facility] Comment on above: Order Comment: Speci men Type: BLOOD SPECIMENOrdering Facility: [facility] Address: [address] [place] [address] Performed By: #### 5 7021-8 ####[facility] ANGELICAWNCLIA [id number] [place] [address] [place] MCV (RBC) [Entitic vol] 94.4 fL Normal 80.0-100.[address] [facility] Comment on above: Order Comment: Speci men Type: BLOOD SPECIMENOrdering Facility: [facility] Address: [address] [place] [address] Performed By: #### 5 7021-8 ####[facility]ENTERNCLIA [id number] [place] [address] [place] Monocytes (Bld) [#/Vol] 0.23 10*3/uL Normal <0.87 [facility] Comment on above: Order Comment: Speci men Type: BLOOD SPECIMENOrdering Facility: [facility] Address: [address] [place] [address] Performed By: #### 5 7021-8 ####[facility]ENTERRICLIA [id number] [place] [address] [place] Monocytes/100 WBC (Bld) 5.3 % Normal [facility] Comment on above: Order Comment: Speci men Type: BLOOD SPECIMENOrdering Facility: [facility] Address: [address] [place] [address] Performed By: #### 5 7021-8 ####[facility] ERWNCLIA [id number] [place] [address] [place] Neutrophils (Bld) [#/Vol] 2.78 10*3/uL Normal 1.45-7.50 [facility] Comment on above: Order Comment: Speci men Type: BLOOD SPECIMENOrdering Facility: [facility] Address: [address] [place] [address] Performed By: #### 5 7021-8 ####[facility]ENTERNCLIA [id number] [place] [address] [place] Neutrophils/100 WBC (Bld) 63.7 % Normal [facility] Comment on above: Order Comment: Speci men Type: BLOOD SPECIMENOrdering Facility: [facility] Address: [address] [place] [address] Performed By: #### 5 7021-8 ####[facility] [id number] [place] [address] [place] Nucleated RBC (Bld) [#/Vol] 10*3/uL Normal <0.01 [facility] Comment on above: Order Comment: Speci men Type: BLOOD SPECIMENOrdering Facility: [facility] Address: [address] [place] [address] Performed By: #### 5 7021-8 ####[facility] [id number] [place] [address] [place] Nucleated RBC/100 WBC (Bld) [Ratio] 0.0 /100 WBC Normal [facility] Comment on above: Order Comment: Speci men Type: BLOOD SPECIMENOrdering Facility: [facility] Address: [address] [place] [address] Performed By: #### 5 7021-8 ####[facility] [id number] [place] [address] [place] Platelet mean volume (Bld) [Entitic vol] 8.9 fL Low 9.0-12.7 [facility] Comment on above: Order Comment: Speci men Type: BLOOD SPECIMENOrdering Facility: [facility] Address: [address] [place] [address] Performed By: #### 5 7021-8 ####[facility]ENTERNCLI [id number] [place] [address] [place] Platelets (Bld) [#/Vol] 107 10*3/uL Low 150-400 [facility] Comment on above: Order Comment: Speci men Type: BLOOD SPECIMENOrdering Facility: [facility] Address: [facility] [place] [address] Performed By: #### 5 7021-8 ####[facility]ENTERNCLIA [id number] [place] [address] [place] RBC (Bld) [#/Vol] 3.58 10*6/uL Low 4.20-6.00 [facility] Comment on above: Order Comment: Speci men Type: BLOOD SPECIMENOrdering Facility: [facility] Address: [address] [place] [address] Performed By: #### 5 7021-8 ####[facility]ENTERNCLIA [id number] [place] [address] [place] WBC (Bld) [#/Vol] 4.36 10*3/uL Normal 3.70-11.00 [facility] Comment on above: Order Comment: Speci men Type: BLOOD SPECIMENOrdering Facility: [facility] Address: [facility] [place] [address] Performed By: #### 5 7021-8 ####[facility]ENTERNCLIA [id number] [place] [address] [place] Comprehensive metabolic 2000 panelOrdered By: Rissa Browning on 10-01-2024 Albumin [Mass/Vol] 3.9 g/dL 3.9 - 4.9 g/dL [place] ALP [Catalytic activity/Vol] 59 U/L 38 - 113 U/L [facility] ALT [Catalytic activity/Vol] 5 U/L Low 10 - 54 U[facility]L [facility] Anion gap [Moles/Vol] 10 mmol/L 8 - 15 mmol/L [facility] AST [Catalytic activity/Vol] 9 U/L Low 14 - 40 U/L [place] Bilirubin [Mass/Vol] 0.3 mg/dL 0.2 - 1 .3 mg/dL [place] Calcium [Mass/Vol] 9.0 mg/dL 8.5 - 10. 2 mg/dL [place] Chloride [Moles/Vol] 108 mmol/L High 98 - 10 7 mmol/L [place] CO2 [Moles/Vol] 22 mmol/L 22 - 30 mmol/L [place] Creatinine [Mass/Vol] 2.06 mg/dL High 0.73 - 1.22 mg/dL [place] GFR/1.73 sq M.predicted among non-blacks MDRD (S/P/Bld) [Vol rate/Area] 33 mL/min/{1.73_m2} Low - PINF [place] Comment on above: Estimated Glomerular Filtration Rate [...] 101 mg/dL High 74 - 99 mg/dL [place] Comment on above: The [place] Diab[employer] Association (ADA) provides guidance for [...] Standards of Medical Care in Diabetes 2016, [place] [employer]. Diabetes Care. 2016.39(Suppl 1). Interpretation and review of laboratory results Abnormal [place] Potassium [Moles/Vol] 4.6 mmol/L 3.7 - 5.1 mmol/L [place] Protein [Mass/Vol] 6.3 g/dL 6.3 - 8.0 g/dL [place] Sodium [Moles/Vol] 140 mmol/L 136 - 144 mmol/L [place] Urea nitrogen [Mass/Vol] 34 mg/dL High 9 - 24 mg/dL [facility] metabolic 2000 panelon 10-01-2024 Albumin [Mass/Vol] 3.9 g/dL Normal 3.9-4.9 [facility] Comment on above: Order Comment: Speci men Type: BLOOD SPECIMENOrdering Facility: [facility] Address: [address] [place] [address] Performed By: #### 2 4323-8 ####[facility]ENTERNCLIA [id number] [place] [address] [place] ALP [Catalytic activity/Vol] 59 U/L Normal 38-113 [facility] Comment on above: Order Comment: Speci men Type: BLOOD SPECIMENOrdering Facility: [facility] Address: [address] [place] [address] Performed By: #### 2 4323-8 ####[facility] [id number] [place] [address] [place] ALT [Catalytic activity/Vol] 5 U/L Low 10-54 [facility] Comment on above: Order Comment: Speci men Type: BLOOD SPECIMENOrdering Facility: [facility] Address: [address] [place] [address] Performed By: #### 2 4323-8 ####[facility]ENTERNCLIA [id number] [place] [address] [place] Anion gap [Moles/Vol] 10 mmol/L Normal 8-15 [facility] Comment on above: Order Comment: Speci men Type: BLOOD SPECIMENOrdering Facility: [facility] Address: [address] [place] [address] Performed By: #### 2 4323-8 ####[facility]ENTERNCLIA [id number] [place] [address] [place] AST [Catalytic activity/Vol] 9 U/L Low 14-40 [facility] Comment on above: Order Comment: Speci men Type: BLOOD SPECIMENOrdering Facility: [facility] Address: [address] [place] [address] Performed By: #### 2 4323-8 ####[facility] JENNIFER MILLTOWNCLIA [id number] [place] [address] [place] Bilirubin [Mass/Vol] 0.3 mg/dL Normal 0.2-1.3 [facility] Comment on above: Order Comment: Speci men Type: BLOOD SPECIMENOrdering Facility: [facility] Address: [address] [place] [address] Performed By: #### 2 4323-8 ####[facility] MILLTOWRICLIA [id number] [place] [address] [place] Calcium [Mass/Vol] 9.0 mg/dL Normal 8.5-10.2 [facility] Comment on above: Order Comment: Speci men Type: BLOOD SPECIMENOrdering Facility: [facility] Address: [address] [place] [address] Performed By: #### 2 4323-8 ####[facility] MILLKYEWNCLIA [id number] [place] [address] [place] Chloride [Moles/Vol] 108 mmol/L High 98-107 [facility] Comment on above: Order Comment: Speci men Type: BLOOD SPECIMENOrdering Facility: [facility] Address: [address] [place] [address] Performed By: #### 2 4323-8 ####[facility] JENNIFER MILLTOWNCLIA [id number] [place] [address] [place] CO2 [Moles/Vol] 22 mmol/L Normal 22-30 [facility] Comment on above: Order Comment: Speci men Type: BLOOD SPECIMENOrdering Facility: [facility] Address: [address] [place] [address] Performed By: #### 2 4323-8 ####[facility] MILLTOWNCLIA [id number] [place] [address] [place] Creatinine [Mass/Vol] 2.06 mg/dL High 0.73-1.22 [facility] Comment on above: Order Comment: Raul hutson Type: BLOOD SPECIMENOrdering Facility: [facility] Address: [address] [place] [address] Performed By: #### 2 4323-8 ####[facility] [id number] [place] [address] [place] eGFRcr SerPlBld CKD-EPI 2020 33 mL/min/1.73m??? Low >=60 [facility] Comment on above: Order Comment: Raul hutson Type: BLOOD SPECIMENOrdering Facility: [facility] Address: [address] [place] [address] Result Comment: Amy mated Glomerular Filtration Rate [...] actual GFR. Performed By: #### 2 4323-8 ####[facility] [id number] [place] [address] [place] Glucose [Mass/Vol] 101 mg/dL High 74-99 [facility] Comment on above: Order Comment: Raul hutson Type: BLOOD SPECIMENOrdering Facility: [facility] Address: [address] [place], [place] [address] Result Comment: The [place] Diabetes Association (ADA) provides guidance for cutoff [...] Standards of Medical Care in Diabetes 2016, [place] [employer]. Diabetes Care. 2016.39(Suppl 1). Performed By: #### 2 4323-8 ####[facility] [id number] [place] [address] [place] Potassium [Moles/Vol] 4.6 mmol/L Normal 3.7-5.1 [facility] Comment on above: Order Comment: Speci men Type: BLOOD SPECIMENOrdering Facility: [facility] Address: [address] [place], [place] [address] Performed By: #### 2 4323-8 ####[facility] [id number] [place] [address] [place] Protein [Mass/Vol] 6.3 g/dL Normal 6.3-8.0 [facility] Comment on above: Order Comment: Speci men Type: BLOOD SPECIMENOrdering Facility: [facility] Address: [address] [place], [place] [address] Performed By: #### 2 4323-8 ####[facility] [id number] [place] [address] [place] Sodium [Moles/Vol] 140 mmol/L Normal 136-144 [facility] Comment on above: Order Comment: Speci men Type: BLOOD SPECIMENOrdering Facility: [facility] Address: [address] [place] [address] Performed By: #### 2 4323-8 ####[facility] [id number] [place] [address] [place] Urea nitrogen [Mass/Vol] 34 mg/dL High 9-24 [facility] Comment on above: Order Comment: Speci men Type: BLOOD SPECIMENOrdering Facility: [facility] Address: [address] [place], [place] [address] Performed By: #### 2 4323-8 ####[facility] JENNIFER MILLRADHALIA [id number] [place] [address] [place] Basic metabolic 2000 panelon 09-27-2024 Anion gap [Moles/Vol] 10 mmol/L Normal 8-15 [facility] Comment on above: Order Comment: Speci men Type: BLOOD SPECIMENOrdering Facility: [facility] Address: [address] [place] [address] Performed By: #### 2 4321-2 ####[facility] PANCHOA [id number] [place] [address] [place] Calcium [Mass/Vol] 9.1 mg/dL Normal 8.5-10.2 [facility] Comment on above: Order Comment: Speci men Type: BLOOD SPECIMENOrdering Facility: [facility] Address: [address] [place] [address] Performed By: #### 2 4321-2 ####[facility] PANCHOA [id number] [place] [address] [place] Chloride [Moles/Vol] 106 mmol/L Normal 98-107 [facility] Comment on above: Order Comment: Speci men Type: BLOOD SPECIMENOrdering Facility: [facility] Address: [address] [place] [address] Performed By: #### 2 4321-2 ####[facility] MILLKYEWNCLIA [id number] [place] [address] [place] CO2 [Moles/Vol] 23 mmol/L Normal 22-30 [facility] Comment on above: Order Comment: Speci men Type: BLOOD SPECIMENOrdering Facility: [facility] Address: [address] [place] [address] Performed By: #### 2 4321-2 ####[facility] [id number] [place] [address] [place] Creatinine [Mass/Vol] 2.69 mg/dL High 0.73-1.22 [facility] Comment on above: Order Comment: Raul hutson Type: BLOOD SPECIMENOrdering Facility: [facility] Address: [address] [place] [address] Performed By: #### 2 4321-2 ####[facility] [id number] [place] [address] [place] eGFRcr SerPlBld CKD-EPI 2020 24 mL/min/1.73m??? Low >=60 [facility] Comment on above: Order Comment: Raul hutson Type: BLOOD SPECIMENOrdering Facility: [facility] Address: [address] [place] [address] Result Comment: Amy mated Glomerular Filtration Rate [...] actual GFR. Performed By: #### 2 4321-2 ####[facility] [id number] [place] [address] [place] Glucose [Mass/Vol] 94 mg/dL Normal 74-99 [facility] Comment on above: Order Comment: Raul hutson Type: BLOOD SPECIMENOrdering Facility: [facility] Address: [address] [place], [place] [address] Result Comment: The [place] Diabetes Association (ADA) provides guidance for cutoff [...] Standards of Medical Care in Diabetes 2016, [place] Diabetes Association. Diabetes Care. 2016.39(Suppl 1). Performed By: #### 2 4321-2 ####[facility] [id number] [place] [address] [place] Potassium [Moles/Vol] 5.3 mmol/L High 3.7-5.1 [facility] Comment on above: Order Comment: Raul hutson Type: BLOOD SPECIMENOrdering Facility: [facility] Address: [address] [place] [address] Performed By: #### 2 4321-2 ####[facility] [id number] [place] [address] [place] Sodium [Moles/Vol] 139 mmol/L Normal 136-144 [facility] Comment on above: Order Comment: Raul hutson Type: BLOOD SPECIMENOrdering Facility: [facility] Address: [address] [place] [address] Performed By: #### 2 4321-2 ####[facility] [id number] [place] [address] [place] Urea nitrogen [Mass/Vol] 41 mg/dL High 9-24 [facility] Comment on above: Order Comment: Raul hutson Type: BLOOD SPECIMENOrdering Facility: [facility] Address: [address] [place], [place] [address] Performed By: #### 2 4321-2 ####[facility] [id number] [place] [address] [place] CNOVon 09-25-2024 CNOV Office Visit (RADTWS ) ABELARDO IVORY ([id number]) 1950 M Date Time Provider Department 09/25/24 10:15 AM LUIGI BANKS During your visit today, we recorded the following information about you: Temperature Pulse Blood pressure 97.5 degrees 56/minute 121/66 Shreya Grace RN 09/25/2024 10:39 AM Signed Radiation Therapy - Nursing Note (OTV) PATIENT NAME: Abelardo Ivory PATIENT September 25, 2024 [facility] FACILITY/LOCATION: [facility] NOTE TYPE: PROSTATE - MALE PELVIS Subjective Data I am still having that pain when I urinated and sometimes just hits gideon Additional Data Do you want to see a Energy Efficiency Finance Manager? No Status: Patient is male Stress Scale: On a scale of 0 to 10, what number best describes how much distress you have experienced in the past week?(0 being no distress and 10 being extreme distress) 2 Social work notified: Pt denied need to see drug abuse social worker at this time. Nursing Assessment Fatigue: increased [...] 5 mg by mouth once daily. - skykjbthlrj-qlvyvszmm-y ilanter (TRELEGY ELLIPTA) 200-62.5-25 mcg inhalation powder [...] Preop te (more content not included)... Normal [facility] Ale 09-25-2024 VICTORIANO Telephone (VAIBHAV) ABELARDO IVORY ([id number]) 1950 M Date Time Provider Department 09/25/24 [...] 5 mg by mouth once daily. - hansaitmjyk-tdaqtngbb-i ilanter (TRELEGY ELLIPTA) 200-62.5-25 mcg inhalation powder [...] for u (more content not included)... Normal [facility] CBC W Auto Differential pane l (Bld)on 09-24-2024 Basophils (Bld) [#/Vol] 0.04 10*3/uL [facility] Basophils/100 WBC (Bld) 0.6 % [facility] Differential cell count method Nom (Bld) Auto [place] Eosinophils (Bld) [#/Vol] 0.12 10*3/uL [facility] Eosinophils/100 WBC (Bld) 1.8 % [place] Erythrocyte distribution width (RBC) [Ratio] 14.2 % 11.5 - 15.0 % [place] Hematocrit (Bld) [Volume fraction] 35.6 % Low 39.0 - 51.0 % [place] Hemoglobin (Bld) [Mass/Vol] 11.5 g/dL Low 13.0 - 17.0 g/dL [place] Immature granulocytes (Bld) [#/Vol] [facility] Immature granulocytes/100 WBC (Bld) 0.2 % [place] Interpretation and review of laboratory results Abnormal [place] Lymphocytes (Bld) [#/Vol] 1.81 10*3/uL [place] Lymphocytes/100 WBC (Bld) 27.8 % [place] MCH (RBC) [Entitic mass] 30.7 pg 26.0 - 34.0 pg [place] MCHC (RBC) [Mass/Vol] 32.3 g/dL 30.5 - 36.0 g/dL [place] MCV (RBC) [Entitic vol] 94.9 fL 80.0 - 100.0 fL [place] Monocytes (Bld) [#/Vol] 0.57 10*3/uL [facility] Monocytes/100 WBC (Bld) 8.8 % [facility] Neutrophils (Bld) [#/Vol] 3.95 10*3/uL [place] Neutrophils/100 WBC (Bld) 60.8 % [place] Nucleated RBC (Bld) [#/Vol] [facility] [place] Nucleated RBC/100 WBC (Bld) [Ratio] 0.0 % /100 WBC [place] Platelet mean volume (Bld) [Entitic vol] 8.2 fL Low 9.0 - 12.7 fL [place] Platelets (Bld) [#/Vol] 151 10*3/uL [place] RBC (Bld) [#/Vol] 3.75 10*6/uL Low 4.20 - 6.0 0 m/uL [place] WBC (Bld) [#/Vol] 6.50 10*3/uL [facility] Basophils (Bld) [#/Vol] 0.04 10*3/uL Normal <0.11 [facility] Comment on above: Order Comment: Speci men Type: BLOOD SPECIMENOrdering Facility: [facility] Address: [address] [place] [address] Performed By: #### 5 7021-8 ####[facility] [id number] [address] OF [facility] Basophils/100 WBC (Bld) 0.6 % Normal [facility] Comment on above: Order Comment: Speci men Type: BLOOD SPECIMENOrdering Facility: [facility] Address: [address] [place] [address] Performed By: #### 5 7021-8 ####[facility]CLIA [id number] [place] [address] [place] Differential cell count method Nom (Bld) Auto Normal [facility] Comment on above: Order Comment: Speci men Type: BLOOD SPECIMENOrdering Facility: [facility] Address: [address] [place] [address] Performed By: #### 5 7021-8 ####[facility] [id number] [place] [address] [place] Eosinophils (Bld) [#/Vol] 0.12 10*3/uL Normal <0.46 [facility] Comment on above: Order Comment: Speci men Type: BLOOD SPECIMENOrdering Facility: [facility] Address: [address] [place] [address] Performed By: #### 5 7021-8 ####[facility] [id number] [place] [address] [place] Eosinophils/100 WBC (Bld) 1.8 % Normal [facility] Comment on above: Order Comment: Speci men Type: BLOOD SPECIMENOrdering Facility: [facility] Address: [address] [place] [address] Performed By: #### 5 7021-8 ####[facility] [id number] [place] [address] [place] Erythrocyte distribution width (RBC) [Ratio] 14.2 % Normal 11.5-15.0 [facility] Comment on above: Order Comment: Speci men Type: BLOOD SPECIMENOrdering Facility: [facility] Address: [address] [place] [address] Performed By: #### 5 7021-8 ####[facility]ENTERNCLI [id number] [place] [address] [place] Hematocrit (Bld) [Volume fraction] 35.6 % Low 39.0-51.0 [facility] Comment on above: Order Comment: Speci men Type: BLOOD SPECIMENOrdering Facility: [facility] Address: [address] [place] [address] Performed By: #### 5 7021-8 ####[facility] [id number] [place] [address] [place] Hemoglobin (Bld) [Mass/Vol] 11.5 g/dL Low 13.0-17.0 [facility] Comment on above: Order Comment: Speci men Type: BLOOD SPECIMENOrdering Facility: [facility] Address: [address] [place] [address] Performed By: #### 5 7021-8 ####[facility] [id number] [place] [address] [place] Immature granulocytes (Bld) [#/Vol] 10*3/uL Normal <0.10 [facility] Comment on above: Order Comment: Speci men Type: BLOOD SPECIMENOrdering Facility: [facility] Address: [address] [place] [address] Performed By: #### 5 7021-8 ####[facility]ENTERNCA [id number] [place] [address] [place] Immature granulocytes/100 WBC (Bld) 0.2 % Normal [facility] Comment on above: Order Comment: Speci men Type: BLOOD SPECIMENOrdering Facility: [facility] Address: [address] [place] [address] Performed By: #### 5 7021-8 ####[facility]ENTERNCLIA [id number] [place] [address] [place] Lymphocytes (Bld) [#/Vol] 1.81 10*3/uL Normal 1.00-4.00 [facility] Comment on above: Order Comment: Speci men Type: BLOOD SPECIMENOrdering Facility: [facility] Address: [address] [place] [address] Performed By: #### 5 7021-8 ####[facility] ANGELICASHIRINLIA [id number] [place] [address] [place] Lymphocytes/100 WBC (Bld) 27.8 % Normal [facility] Comment on above: Order Comment: Speci men Type: BLOOD SPECIMENOrdering Facility: [facility] Address: [address] [place] [address] Performed By: #### 5 7021-8 ####[facility] CENTERRICGREGORIO [id number] [place] [address] [place] MCH (RBC) [Entitic mass] 30.7 pg Normal 26.0-34.0 [facility] Comment on above: Order Comment: Speci men Type: BLOOD SPECIMENOrdering Facility: [facility] Address: [address] [place] [address] Performed By: #### 5 7021-8 ####[facility] [id number] [place] [address] [place] MCHC (RBC) [Mass/Vol] 32.3 g/dL Normal 30.5-36.0 [facility] Comment on above: Order Comment: Speci men Type: BLOOD SPECIMENOrdering Facility: [facility] Address: [address] [place] [address] Performed By: #### 5 7021-8 ####[facility]LIA [id number] [place] [address] [place] MCV (RBC) [Entitic vol] 94.9 fL Normal 80.0-100.[address] [facility] Comment on above: Order Comment: Speci men Type: BLOOD SPECIMENOrdering Facility: [facility] Address: [address] [place] [address] Performed By: #### 5 7021-8 ####[facility] [id number] [place] [address] [place] Monocytes (Bld) [#/Vol] 0.57 10*3/uL Normal <0.87 [facility] Comment on above: Order Comment: Speci men Type: BLOOD SPECIMENOrdering Facility: [facility] Address: [address] [place] [address] Performed By: #### 5 7021-8 ####[facility] ERWUTLIA [id number] [place] [address] [place] Monocytes/100 WBC (Bld) 8.8 % Normal [facility] Comment on above: Order Comment: Speci men Type: BLOOD SPECIMENOrdering Facility: [facility] Address: [address] [place] [address] Performed By: #### 5 7021-8 ####[facility]ENTERNCLIA [id number] [place] [address] [place] Neutrophils (Bld) [#/Vol] 3.95 10*3/uL Normal 1.45-7.50 [facility] Comment on above: Order Comment: Speci men Type: BLOOD SPECIMENOrdering Facility: [facility] Address: [address] [place] [address] Performed By: #### 5 7021-8 ####[facility]LIA [id number] [place] [address] [place] Neutrophils/100 WBC (Bld) 60.8 % Normal [facility] Comment on above: Order Comment: Speci men Type: BLOOD SPECIMENOrdering Facility: [facility] Address: [address] [place] [address] Performed By: #### 5 7021-8 ####[facility]ENTERNCLIA [id number] [place] [address] [place] Nucleated RBC (Bld) [#/Vol] 10*3/uL Normal <0.01 [facility] Comment on above: Order Comment: Speci men Type: BLOOD SPECIMENOrdering Facility: [facility] Address: [address] [place] [address] Performed By: #### 5 7021-8 ####[facility] JENNIFER JOAQUINNCSATISH [id number] [place] [address] [place] Nucleated RBC/100 WBC (Bld) [Ratio] 0.0 /100 WBC Normal [facility] Comment on above: Order Comment: Speci men Type: BLOOD SPECIMENOrdering Facility: [facility] Address: [address] [place] [address] Performed By: #### 5 7021-8 ####[facility] CENTERNCSATISH [id number] [place] [address] [place] Platelet mean volume (Bld) [Entitic vol] 8.2 fL Low 9.0-12.7 [facility] Comment on above: Order Comment: Speci men Type: BLOOD SPECIMENOrdering Facility: [facility] Address: [address] [place] [address] Performed By: #### 5 7021-8 ####[facility]ENTERNCLIA [id number] [place] [address] [place] Platelets (Bld) [#/Vol] 151 10*3/uL Normal 150-400 [facility] Comment on above: Order Comment: Speci men Type: BLOOD SPECIMENOrdering Facility: [facility] Address: [address] [place] [address] Performed By: #### 5 7021-8 ####[facility]ENTERNCLIA [id number] [place] [address] [place] RBC (Bld) [#/Vol] 3.75 10*6/uL Low 4.20-6.00 [facility] Comment on above: Order Comment: Speci men Type: BLOOD SPECIMENOrdering Facility: [facility] Address: [address] [place], [place] [address] [id number] Performed By: #### 5 7021-8 ####[facility] JENNIFER NUÑEZNCLIA [id number] [place] [address] [place] WBC (Bld) [#/Vol] 6.50 10*3/uL Normal 3.70-11.00 [facility] Comment on above: Order Comment: Speci men Type: BLOOD SPECIMENOrdering Facility: [facility] Address: [address] [place] [id number] Performed By: #### 5 7021-8 ####[facility] JENNIFER NUÑEZNCLIA [id number] [address] [place] CNPMalina 09-24-2024 CNPN Telephone (HEMAWS) ABELARDO IVORY ([id number]) 1950 M Date Time Provider Department 09/24/24 [...] 5 mg by mouth once daily. - qyfulbghniq-qholjtdkk-j ilanter (TRELEGY ELLIPTA) 200-62.5-25 mcg inhalation powder [...] Status:Closed by LEONARDO MOSES on 09/24/24 Normal [facility] Comprehensive metabolic 2000 panelOrdered By: Rissa Browning on 09-24-2024 Albumin [Mass/Vol] 4.2 g/dL 3.9 - 4.9 g/dL [place] ALP [Catalytic activity/Vol] 58 U/L 38 - 113 U/L [place] ALT [Catalytic activity/Vol] 5 U/L Low 10 - 54 U/L [place] Anion gap [Moles/Vol] 10 mmol/L 8 - 15 mmol/L [place] AST [Catalytic activity/Vol] 10 U/L Low 14 - 40 U/L [place] Bilirubin [Mass/Vol] 0.2 mg/dL 0.2 - 1 .3 mg/dL [place] Calcium [Mass/Vol] 9.3 mg/dL 8.5 - 10. 2 mg/dL [place] Chloride [Moles/Vol] 107 mmol/L 98 - 10 7 mmol/L [place] CO2 [Moles/Vol] 23 mmol/L 22 - 30 mmol/L [place] Creatinine [Mass/Vol] 2.14 mg/dL High 0.73 - 1.22 mg/dL [place] GFR/1.73 sq M.predicted among non-blacks MDRD (S/P/Bld) [Vol rate/Area] 32 mL/min/{1.73_m2} Low - PINF [place] Comment on above: Estimated Glomerular Filtration Rate [...] 107 mg/dL High 74 - 99 mg/dL [place] Comment on above: The [place] Diabete s Association (ADA) provides guidance for [...] Standards of Medical Care in Diabetes 2016, [place] Diabetes Association. Diabetes Care. 2016.39(Suppl 1). Interpretation and review of laboratory results Abnormal [place] Potassium [Moles/Vol] 4.8 mmol/L 3.7 - 5.1 mmol/L [place] Protein [Mass/Vol] 6.7 g/dL 6.3 - 8.0 g/dL [place] Sodium [Moles/Vol] 140 mmol/L 136 - 144 mmol/L [place] Urea nitrogen [Mass/Vol] 32 mg/dL High 9 - 24 mg/dL [facility] Comprehensive metabolic 2000 panelon 09-24-2024 Albumin [Mass/Vol] 4.2 g/dL Normal 3.9-4.9 [facility] Comment on above: Order Comment: Speci men Type: BLOOD SPECIMENOrdering Facility: [facility] Address: [address] [place] [address] Performed By: #### 2 4323-8 ####[facility]LIA [id number] [place] [address] [place] ALP [Catalytic activity/Vol] 58 U/L Normal 38-113 [facility] Comment on above: Order Comment: Speci men Type: BLOOD SPECIMENOrdering Facility: [facility] Address: [address] [place] [address] Performed By: #### 2 4323-8 ####[facility] [id number] [place] [address] [place] ALT [Catalytic activity/Vol] 5 U/L Low 10-54 [facility] Comment on above: Order Comment: Speci men Type: BLOOD SPECIMENOrdering Facility: [facility] Address: [address] [place] [address] Performed By: #### 2 4323-8 ####[facility]ENTERNCLI [id number] [place] [address] [place] Anion gap [Moles/Vol] 10 mmol/L Normal 8-15 [facility] Comment on above: Order Comment: Speci men Type: BLOOD SPECIMENOrdering Facility: [facility] Address: [address] [place] [address] Performed By: #### 2 4323-8 ####[facility]ENTERNCLIA [id number] [place] [address] [place] AST [Catalytic activity/Vol] 10 U/L Low 14-40 [facility] Comment on above: Order Comment: Speci men Type: BLOOD SPECIMENOrdering Facility: [facility] Address: [address] [place] [address] Performed By: #### 2 4323-8 ####[facility] ANGELICASHIRINGREGORIOA [id number] [place] [address] [place] Bilirubin [Mass/Vol] 0.2 mg/dL Normal 0.2-1.3 [facility] Comment on above: Order Comment: Speci men Type: BLOOD SPECIMENOrdering Facility: [facility] Address: [address] [place] [address] Performed By: #### 2 4323-8 ####[facility] CENTERRICLIA [id number] [place] [address] [place] Calcium [Mass/Vol] 9.3 mg/dL Normal 8.5-10.2 [facility] Comment on above: Order Comment: Speci men Type: BLOOD SPECIMENOrdering Facility: [facility] Address: [address] [place] [address] Performed By: #### 2 4323-8 ####[facility] CENTERHOLLYA [id number] [place] [address] [place] Chloride [Moles/Vol] 107 mmol/L Normal 98-107 [facility] Comment on above: Order Comment: Speci men Type: BLOOD SPECIMENOrdering Facility: [facility] Address: [address] [place] [address] Performed By: #### 2 4323-8 ####[facility]ENTERNCLIA [id number] [place] [address] [place] CO2 [Moles/Vol] 23 mmol/L Normal 22-30 [facility] Comment on above: Order Comment: Speci men Type: BLOOD SPECIMENOrdering Facility: [facility] Address: [address] [place] [address] Performed By: #### 2 4323-8 ####[facility] ERWNCLIA [id number] [place] [address] [place] Creatinine [Mass/Vol] 2.14 mg/dL High 0.73-1.22 [facility] Comment on above: Order Comment: Raul hutson Type: BLOOD SPECIMENOrdering Facility: [facility] Address: [address] [place] [address] Performed By: #### 2 4323-8 ####[facility]ERNCR[facility]ERT[facility] [id number] [place] [address] [place] eGFRcr SerPlBld CKD-EPI 2020 32 mL/min/1.73m??? Low >=60 [facility] Comment on above: Order Comment: Raul hutson Type: BLOOD SPECIMENOrdering Facility: [facility] Address: [address] [place] [address] Result Comment: Amy mated Glomerular Filtration Rate [...] actual GFR. Performed By: #### 2 4323-8 ####[facility]ENTERNCLIA [id number] [place] [address] [place] Glucose [Mass/Vol] 107 mg/dL High 74-99 [facility] Comment on above: Order Comment: Raul hutson Type: BLOOD SPECIMENOrdering Facility: [facility] Address: [address] [place] [address] Result Comment: The [place] Diabetes Association (ADA) provides guidance for cutoff [...] Standards of Medical Care in Diabetes 2016, [place] Diabetes Association. Diabetes Care. 2016.39(Suppl 1). Performed By: #### 2 4323-8 ####[facility]LIA [id number] [place] [address] [place] Potassium [Moles/Vol] 4.8 mmol/L Normal 3.7-5.1 [facility] Comment on above: Order Comment: Speci men Type: BLOOD SPECIMENOrdering Facility: [facility] Address: [address] [place] [address] Performed By: #### 2 4323-8 ####[facility] [id number] [place] [address] [place] Protein [Mass/Vol] 6.7 g/dL Normal 6.3-8.0 [facility] Comment on above: Order Comment: Speci men Type: BLOOD SPECIMENOrdering Facility: [facility] Address: [address] [place] [address] Performed By: #### 2 4323-8 ####[facility] [id number] [place] [address] [place] Sodium [Moles/Vol] 140 mmol/L Normal 136-144 [facility] Comment on above: Order Comment: Speci men Type: BLOOD SPECIMENOrdering Facility: [facility] Address: [address] [place] [address] Performed By: #### 2 4323-8 ####[facility] [id number] [place] [address] [place] Urea nitrogen [Mass/Vol] 32 mg/dL High 9-24 [facility] Comment on above: Order Comment: Speci men Type: BLOOD SPECIMENOrdering Facility: [facility] Address: [facility] [place] [id number] Performed By: #### 2 4323-8 ####[facility] JENNIFER ZHOU [id number] [place] [id number] [place] ABD/PEL WO IVCONon 2024 CT ABD/PEL WO IVCON * * *Final Report* * * DATE OF EXAM: Sep 18 2024 9:19AM [facility] 0531 - CT ABD/PEL WO IVCON [...] and hydroureter. Small retroperitoneal nodes are stable. Associate Sales[facility] Transcribe Date/Time: Sep 19 2024 9:51A Dictated by : DEANNA RAMIREZ MD This examination was interpreted and the report reviewed and electronically signed by: DEANNA RAMIREZ MD on Sep 19 2024 10:05AM EST [id number] Normal [facility] 09-12-2024 [facility] Telephone (VAIBHAV) ABELARDO IVORY ([id number]) 1950 M Date Time Provider Department 09/12/24 MATTHEW GU During your visit today, we recorded the following information about you: Matthew Gu RN 09/12/2024 11:11 AM Signed Completed chemo education. 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 C/o pain. Pain assessment completed. 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 - embiimzoqno-iongmhcga-m ilanter (TRELEGY ELLIPTA) 200-62.5-25 mcg inhalation powder [...] 02/14/2019 Thrombocytopenia (more content not included)... [facility] ([id number]) 1950 M Date Time Provider Department 09/12/24 [...] Father is Child/Children: Yes. 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 Unknown EMPLOYMENT/FINANCIAL/HE ALTH INSURANCE: Employment: Retired Income source: Social Security and Snf Pension Insurance: Medicare with co-insurance Prescription coverage: Yes Is the patient appropriate for referral to [place] COBRA Assistance program? No Financial Distress: No [...] Yes, 2019 Health Care Durable Power of Executive Assistant To General Counsel: Yes Scanned into EPIC: No, pt reports he will get a copy of this document from [facility] at his upcoming appointment Guardianship: No [...] and h (more content not included)... 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 Patient has an Onbody or Implanted device: [...] 5 mg by mouth once daily. 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 Associate Sales: JESUS ALBERTO Transcribe Date/Time: Sep 07 2024 12:38P Dictated by : HAYLEE STARKEY DO This examination was interpreted and the report reviewed and electronically signed by: HAYLEE STARKEY DO on Sep 07 2024 12:42PM EST [id number] Normal [facility] US Kidney - bilateral and Ur inary bladderon 09-07-2024 Radiology Study observation (narrative) [facility] IMPRESSION: Mild RIGHT and moderate LEFT hydronephrosis. 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 Associate Sales: JESUS ALBERTO Transcribe Date/Time: Sep 07 2024 12:38P Dictated by : HAYLEE STARKEY DO This examination was interpreted and the report reviewed and electronically signed by: HAYLEE STARKEY DO on Sep 07 2024 12:42PM EST DIVISION OF RADIOLOGY * * *Final Report* * * DATE OF EXAM: Sep 07 2024 12:20PM [facility] 1055 - US KIDNEY/BLADDER / PROCEDURE [...] to known neoplasm. 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 Associate Sales: JESUS ALBERTO Transcribe Date/Time: Sep 07 2024 12:38P Dictated by : HAYLEE STARKEY DO This examination was interpreted and the report reviewed and electronically signed by: HAYLEE STARKEY DO on Sep 07 2024 12:42PM [facility] US Kidney - bilateral and Ur inary bladderOrdered By: Ccf Provider on 09-07-2024 [place] CNOVon 09-06-2024 CNOV Office Visit (RADTWS ) ABELARDO IVORY ([id number]) 1950 M Date Time Provider Department 09/06/24 10:30 AM LUIGI BANKS During your visit today, we recorded the following information about you: Temperature Pulse Respiration Blood pressure 97.7 degrees 74/minute 15/minute 136/63 Weight 69.2 kg Unruly Diaz RN 09/14/2024 11:12 AM Signed Radiation Therapy - Nursing Note (Consult) PATIENT NAME: Abelardo Ivory PATIENT September 06, 2024 [facility] FACILITY/LOCATION: [place] Chief Complaint: consult Reason for visit: Consult. Referring physician: Internal provider Dr Rivers Subjective Data: see pain assessment Additional Data Do you want to see a Energy Efficiency Finance Manager? No Are you interested in information about [...] Take 5 mg by mouth once daily. phazpwbkinu-eytfaspvi-h ilanter (TRELEGY ELLIPTA) 200-62.5-25 mcg inhalation powder [...] Asthma S (more content not included)... Normal [facility] CNPNon 09-06-2024 CNPN Telephone (UROLAE) ABELARDO IVORY ([id number]) 1950 M Date Time Provider Department 09/06/24 [...] 5 mg by mouth once daily. - mmxyojpajps-tlfbtmkjh-q ilanter (TRELEGY ELLIPTA) 200-62.5-25 mcg inhalation powder [...] Encounter Status:Closed by STACY GAUTHIER on 09/06/24 [facility] CBC W Auto Differential pane l (Bld)on 09-05-2024 Basophils (Bld) [#/Vol] 0.05 10*3/uL [facility] Basophils/100 WBC (Bld) 0.7 % [facility] Differential cell count method Nom (Bld) Auto [place] Eosinophils (Bld) [#/Vol] 0.23 10*3/uL [facility] Eosinophils/100 WBC (Bld) 3.1 % [place] Erythrocyte distribution width (RBC) [Ratio] 13.4 % 11.5 - 15.0 % [place] Hematocrit (Bld) [Volume fraction] 40 % 39.0 - 51.0 % [place] Hemoglobin (Bld) [Mass/Vol] 12.7 g/dL Low 13.0 - 17.0 g/dL [place] Immature granulocytes (Bld) [#/Vol] [facility] Immature granulocytes/100 WBC (Bld) 0.3 % [place] Interpretation and review of laboratory results Abnormal [place] Lymphocytes (Bld) [#/Vol] 2.43 10*3/uL [place] Lymphocytes/100 WBC (Bld) 32.7 % [place] MCH (RBC) [Entitic mass] 29.9 pg 26.0 - 34.0 pg [place] MCHC (RBC) [Mass/Vol] 31.8 g/dL 30.5 - 36.0 g/dL [place] MCV (RBC) [Entitic vol] 94.1 fL 80.0 - 100.0 fL [place] Monocytes (Bld) [#/Vol] 0.56 10*3/uL [facility] Monocytes/100 WBC (Bld) 7.5 % [facility] Neutrophils (Bld) [#/Vol] 4.15 10*3/uL [place] Neutrophils/100 WBC (Bld) 55.7 % [place] Nucleated RBC (Bld) [#/Vol] [facility] [place] Nucleated RBC/100 WBC (Bld) [Ratio] 0 % /100 WBC [place] Platelet mean volume (Bld) [Entitic vol] 8.3 fL Low 9.0 - 12.7 fL [place] Platelets (Bld) [#/Vol] 207 10*3/uL [place] RBC (Bld) [#/Vol] 4.25 10*6/uL 4.20 - 6.0 0 m/uL [place] WBC (Bld) [#/Vol] 7.44 10*3/uL [facility] Basophils (Bld) [#/Vol] 0.05 10*3/uL Normal <0.11 [facility] Comment on above: Order Comment: Speci men Type: BLOOD SPECIMENOrdering Facility: [facility] Address: [address] [place] [address] Performed By: #### 5 7021-8 ####[facility] JENNIFER [facility] HOSPITALSATISH [id number] [place] [id number] [place] Basophils/100 WBC (Bld) 0.7 % Normal [facility] Comment on above: Order Comment: Speci men Type: BLOOD SPECIMENOrdering Facility: [facility] Address: [address] [place] [address] Performed By: #### 5 7021-8 ####[facility] ANGELICAELIZA [id number] [place] [address] [place] Differential cell count method Nom (Bld) Auto Normal [facility] Comment on above: Order Comment: Speci men Type: BLOOD SPECIMENOrdering Facility: [facility] Address: [address] [place] [place] [address] Performed By: #### 5 7021-8 ####[facility]ENTERRICGREGORIOA [id number] [place] [address] [place] Eosinophils (Bld) [#/Vol] 0.23 10*3/uL Normal <0.46 [facility] Comment on above: Order Comment: Speci men Type: BLOOD SPECIMENOrdering Facility: [facility] Address: [address] [place] [address] Performed By: #### 5 7021-8 ####[facility] [id number] [place] [address] [place] Eosinophils/100 WBC (Bld) 3.1 % Normal [facility] Comment on above: Order Comment: Speci men Type: BLOOD SPECIMENOrdering Facility: [facility] Address: [address] [place] [address] Performed By: #### 5 7021-8 ####[facility]ENTERRICGREGORIOA [id number] [place] [address] [place] Erythrocyte distribution width (RBC) [Ratio] 13.4 % Normal 11.5-15.0 [facility] Comment on above: Order Comment: Speci men Type: BLOOD SPECIMENOrdering Facility: [facility] Address: [address] [place] [address] Performed By: #### 5 7021-8 ####[facility] CENTERNCLI [id number] [place] [address] [place] Hematocrit (Bld) [Volume fraction] 40.0 % Normal 39.0-51.0 [facility] Comment on above: Order Comment: Speci men Type: BLOOD SPECIMENOrdering Facility: [facility] Address: [address] [place] [address] Performed By: #### 5 7021-8 ####[facility] [id number] [place] [address] [place] Hemoglobin (Bld) [Mass/Vol] 12.7 g/dL Low 13.0-17.0 [facility] Comment on above: Order Comment: Speci men Type: BLOOD SPECIMENOrdering Facility: [facility] Address: [address] [place] [address] Performed By: #### 5 7021-8 ####[facility] [id number] [place] [address] [place] Immature granulocytes (Bld) [#/Vol] 10*3/uL Normal <0.10 [facility] Comment on above: Order Comment: Speci men Type: BLOOD SPECIMENOrdering Facility: [facility] Address: [address] [place] [address] Performed By: #### 5 7021-8 ####[facility] [id number] [place] [address] [place] Immature granulocytes/100 WBC (Bld) 0.3 % Normal [facility] Comment on above: Order Comment: Speci men Type: BLOOD SPECIMENOrdering Facility: [facility] Address: [address] [place] [address] Performed By: #### 5 7021-8 ####[facility]ERNCRIV[facility] [id number] [place] [address] [place] Lymphocytes (Bld) [#/Vol] 2.43 10*3/uL Normal 1.00-4.00 [facility] Comment on above: Order Comment: Speci men Type: BLOOD SPECIMENOrdering Facility: [facility] Address: [address] [place] [address] Performed By: #### 5 7021-8 ####[facility] JOAQUINNCSATISH [id number] [place] [address] [place] Lymphocytes/100 WBC (Bld) 32.7 % Normal [facility] Comment on above: Order Comment: Speci men Type: BLOOD SPECIMENOrdering Facility: [facility] Address: [address] [place] [address] Performed By: #### 5 7021-8 ####[facility]ENTERNCSATISH [id number] [place] [address] [place] MCH (RBC) [Entitic mass] 29.9 pg Normal 26.0-34.0 [facility] Comment on above: Order Comment: Speci men Type: BLOOD SPECIMENOrdering Facility: [facility] Address: [address] [place] [address] Performed By: #### 5 7021-8 ####[facility]ENTERNCLIA [id number] [place] [address] [place] MCHC (RBC) [Mass/Vol] 31.8 g/dL Normal 30.5-36.0 [facility] Comment on above: Order Comment: Speci men Type: BLOOD SPECIMENOrdering Facility: [facility] Address: [address] [place] [address] Performed By: #### 5 7021-8 ####[facility]ENTERNCLIA [id number] [place] [address] [place] MCV (RBC) [Entitic vol] 94.1 fL Normal 80.0-100.[address] [facility] Comment on above: Order Comment: Speci men Type: BLOOD SPECIMENOrdering Facility: [facility] Address: [address] [place] [address] Performed By: #### 5 7021-8 ####[facility] MILLWNCLIA [id number] [place] [address] [place] Monocytes (Bld) [#/Vol] 0.56 10*3/uL Normal <0.87 [facility] Comment on above: Order Comment: Speci men Type: BLOOD SPECIMENOrdering Facility: [facility] Address: [address] [place] [address] Performed By: #### 5 7021-8 ####[facility]ENTERNCLIA [id number] [place] [address] [place] Monocytes/100 WBC (Bld) 7.5 % Normal [facility] Comment on above: Order Comment: Speci men Type: BLOOD SPECIMENOrdering Facility: [facility] Address: [address] [place] [address] Performed By: #### 5 7021-8 ####[facility]BUSLIA [id number] [place] [address] [place] Neutrophils (Bld) [#/Vol] 4.15 10*3/uL Normal 1.45-7.50 [facility] Comment on above: Order Comment: Speci men Type: BLOOD SPECIMENOrdering Facility: [facility] Address: [address] [place] [address] Performed By: #### 5 7021-8 ####[facility] MILLWNCLIA [id number] [place] [address] [place] Neutrophils/100 WBC (Bld) 55.7 % Normal [facility] Comment on above: Order Comment: Speci men Type: BLOOD SPECIMENOrdering Facility: [facility] Address: [address] [place] [address] Performed By: #### 5 7021-8 ####[facility]ENTERNCLIA [id number] [place] [id number] [place] Nucleated RBC (Bld) [#/Vol] 10*3/uL Normal <0.01 [facility] Comment on above: Order Comment: Speci men Type: BLOOD SPECIMENOrdering Facility: [facility] Address: [address] [place] [address] Performed By: #### 5 7021-8 ####[facility]ERNCRIVERT[facility] [id number] [place] [address] [place] Nucleated RBC/100 WBC (Bld) [Ratio] 0.0 /100 WBC Normal [facility] Comment on above: Order Comment: Speci men Type: BLOOD SPECIMENOrdering Facility: [facility] Address: [address] [place] [address] Performed By: #### 5 7021-8 ####[facility] [id number] [place] [address] [place] Platelet mean volume (Bld) [Entitic vol] 8.3 fL Low 9.0-12.7 [facility] Comment on above: Order Comment: Speci men Type: BLOOD SPECIMENOrdering Facility: [facility] Address: [address] [place] [address] Performed By: #### 5 7021-8 ####[facility]ENTERNCLIA [id number] [place] [address] [place] Platelets (Bld) [#/Vol] 207 10*3/uL Normal 150-400 [facility] Comment on above: Order Comment: Speci men Type: BLOOD SPECIMENOrdering Facility: [facility] Address: [address] [place] [address] Performed By: #### 5 7021-8 ####[facility]ENTERNCLIA [id number] [place] [address] [place] RBC (Bld) [#/Vol] 4.25 10*6/uL Normal 4.20-6.00 [facility] Comment on above: Order Comment: Speci men Type: BLOOD SPECIMENOrdering Facility: [facility] Address: [address] [place] [address] Performed By: #### 5 7021-8 ####[facility] JENNIFER ANGELICATOWNCLIA [id number] [place] [address] [place] WBC (Bld) [#/Vol] 7.44 10*3/uL Normal 3.70-11.00 [facility] Comment on above: Order Comment: Speci men Type: BLOOD SPECIMENOrdering Facility: [facility] Address: [address] [place] [address] Performed By: #### 5 7021-8 ####[facility] ANGELICATOWNCLIA [id number] [address] [place] CNOVSPon 09-05-2024 CNOVSP Visit (SP) Office (HEMAWS) ABELARDO IVORY ([id number]) 1950 M Date Time Provider Department 09/05/24 [...] with chemo flush. Path below. Referred to [facility] b/c patient declined cystectomy. Per Dr. [...] ppd since age 15 years Pathology from [facility] reviewed at main campus: A. Urinary bladder, [...] cough. Clear sputum. Sees Dr. Zuñiga at [facility]. Smokes about 1/2 ppd. No alcohol. [...] Take 5 mg by mouth once daily. hclkpxslovl-xrfspgoaw-n ilanter (TRELEGY ELLIPTA) 200-62.5-25 mcg inhalation powder [...] (Patient not (more content not included)... 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 - cholecalciferol, vitamin D3, (VITAMIN D-3) 10 mcg (400 unit) cap Take 400 Units by mouth once daily. - amLODIPine (NORVASC) 5 mg tablet Take 5 mg by mouth once daily. - aobnbopdcmp-wsoqoaxiv-f ilanter (TRELEGY ELLIPTA) 200-62.5-25 mcg inhalation powder [...] Status:Closed by MATTHEW GU on 09/05/24 Normal [facility] CNPN Telephone (HEMAWS) ABELARDO IVORY ([id number]) 1950 M Date Time Provider Department 09/05/24 [...] scheduled for potential nephrostomy tube placement at [facility] or [place]. Chelsea Gutierres 09/06/2024 10:09 AM Addendum Scheduled US for 09/07 PICC LINE 09/10 [facility] [place] [facility] 09/06/2024 9:51 AM Signed Absolutely- will add antegrade stent to procedure if IR is able MD Lizzette Rosales Melissa 09/06/2024 12:15 PM Signed Received call from [facility] stating they are unable to insert picc with order placed. She states they need a Tunneled Picc ordered and [facility] IR would schedule that procedure. Elizabeth Ludwig [...] 10:49 AM Signed PICC orders faxed to [facility]; needs placed on 09/21/2024. SUDHA [...] [N17.9] Hydroureter on left [N13.4] Order(s):US KIDNEY/BLADDER [[id number]] Order #: [id number] FUTURE IR NEPHROSTOMY TUBE PLACE [[id number]] Order #: [id number] Prescriptions as of 09/10/2024 - phenazopyridine (PYRIDIUM) 100 mg tablet Take 100 mg by mouth three times a day. - cholecalciferol, vitamin D3, (VITAMIN D-3) 10 mcg (400 unit) cap Take 400 Units by mouth once daily. - amLODIPine (NORVASC) 5 mg tablet Take 5 mg by mouth once daily. - zzseetieosn-xcipfyunc-d ilanter (TRELEGY ELLIPTA) 200-62.5-25 mcg inhalation powder [...] testing [Z (more content not included)... Normal [facility] Comprehensive metabolic 2000 panelOrdered By: Jessie Stewart on 09-05-2024 Albumin [Mass/Vol] 4.4 g/dL 3.9 - 4.9 g/dL [place] ALP [Catalytic activity/Vol] 75 U/L 38 - 113 U/L [facility] ALT [Catalytic activity/Vol] 8 U/L Low 10 - 54 U/L [place] Anion gap [Moles/Vol] 15 mmol/L 8 - 15 mmol/L [facility] AST [Catalytic activity/Vol] 14 U/L 14 - 40 U/L [place] Bilirubin [Mass/Vol] 0.3 mg/dL 0.2 - 1 .3 mg/dL [place] Calcium [Mass/Vol] 9.1 mg/dL 8.5 - 10. 2 mg/dL [place] Chloride [Moles/Vol] 103 mmol/L 98 - 10 7 mmol/L [place] CO2 [Moles/Vol] 18 mmol/L Low 22 - 30 mmol/L [place] Creatinine [Mass/Vol] 2.23 mg/dL High 0.73 - 1.22 mg/dL [place] GFR/1.73 sq M.predicted among non-blacks MDRD (S/P/Bld) [Vol rate/Area] 30 mL/min/{1.73_m2} Low - PINF [place] Comment on above: Estimated Glomerular Filtration Rate [...] 104 mg/dL High 74 - 99 mg/dL [place] Comment on above: The [place] Diab[employer] s Association (ADA) provides guidance for [...] Standards of Medical Care in Diabetes 2016, [place] Diabetes Association. Diabetes Care. 2016.39(Suppl 1). Interpretation and review of laboratory results Abnormal [place] Potassium [Moles/Vol] 5.3 mmol/L High 3.7 - 5.1 mmol/L [place] Protein [Mass/Vol] 7.4 g/dL 6.3 - 8.0 g/dL [place] Sodium [Moles/Vol] 136 mmol/L 136 - 144 mmol/L [place] Urea nitrogen [Mass/Vol] 35 mg/dL High 9 - 24 mg/dL [facility] Comprehensive metabolic 2000 panelon 09-05-2024 Albumin [Mass/Vol] 4.4 g/dL Normal 3.9-4.9 [facility] Comment on above: Order Comment: Speci men Type: BLOOD SPECIMENOrdering Facility: [facility] Address: [address] [place] [address] Performed By: #### 2 4323-8 ####[facility] MILLTOWNCLIA [id number] [place] [address] [place] ALP [Catalytic activity/Vol] 75 U/L Normal 38-113 [facility] Comment on above: Order Comment: Speci men Type: BLOOD SPECIMENOrdering Facility: [facility] Address: [address] [place] [address] Performed By: #### 2 4323-8 ####[facility] ERWNCLIA [id number] [place] [address] [place] ALT [Catalytic activity/Vol] 8 U/L Low 10-54 [facility] Comment on above: Order Comment: Speci men Type: BLOOD SPECIMENOrdering Facility: [facility] Address: [address] [place] [address] Performed By: #### 2 4323-8 ####[facility]ENTERNCLIA [id number] [place] [address] [place] Anion gap [Moles/Vol] 15 mmol/L Normal 8-15 [facility] Comment on above: Order Comment: Speci men Type: BLOOD SPECIMENOrdering Facility: [facility] Address: [address] [place] [address] Performed By: #### 2 4323-8 ####[facility] ERWNCLIA [id number] [place] [address] [place] AST [Catalytic activity/Vol] 14 U/L Normal 14-40 [facility] Comment on above: Order Comment: Speci men Type: BLOOD SPECIMENOrdering Facility: [facility] Address: [address] [place] [address] Performed By: #### 2 4323-8 ####[facility] JENNIFER KELLENGREGORIOA [id number] [place] [address] [place] Bilirubin [Mass/Vol] 0.3 mg/dL Normal 0.2-1.3 [facility] Comment on above: Order Comment: Speci men Type: BLOOD SPECIMENOrdering Facility: [facility] Address: [address] [place] [address] Performed By: #### 2 4323-8 ####[facility] CENTERBRIAN [id number] [place] [address] [place] Calcium [Mass/Vol] 9.1 mg/dL Normal 8.5-10.2 [facility] Comment on above: Order Comment: Speci men Type: BLOOD SPECIMENOrdering Facility: [facility] Address: [address] [place] [address] Performed By: #### 2 4323-8 ####[facility] CENTERBRIAN [id number] [place] [address] [place] Chloride [Moles/Vol] 103 mmol/L Normal 98-107 [facility] Comment on above: Order Comment: Speci men Type: BLOOD SPECIMENOrdering Facility: [facility] Address: [address] [place] [address] Performed By: #### 2 4323-8 ####[facility]ENTERNCLIA [id number] [place] [address] [place] CO2 [Moles/Vol] 18 mmol/L Low 22-30 [facility] Comment on above: Order Comment: Speci men Type: BLOOD SPECIMENOrdering Facility: [facility] Address: [address] [place] [address] Performed By: #### 2 4323-8 ####[facility] ANGELICAWNCLIA [id number] [place] [address] [place] Creatinine [Mass/Vol] 2.23 mg/dL High 0.73-1.22 [facility] Comment on above: Order Comment: Speci men Type: BLOOD SPECIMENOrdering Facility: [facility] Address: [address] [place] [address] Performed By: #### 2 4323-8 ####[facility] CENTERNCLI [id number] [place] [address] [place] eGFRcr SerPlBld CKD-EPI 2020 30 mL/min/1.73m??? Low >=60 [facility] Comment on above: Order Comment: Speci men Type: BLOOD SPECIMENOrdering Facility: [facility] Address: [address] [place] [address] Result Comment: Amy mated Glomerular Filtration Rate [...] actual GFR. Performed By: #### 2 4323-8 ####[facility]ENTERNCLIA [id number] [place] [address] [place] Glucose [Mass/Vol] 104 mg/dL High 74-99 [facility] Comment on above: Order Comment: Speci men Type: BLOOD SPECIMENOrdering Facility: [facility] Address: [address] [place] [id number] Result Comment: The [place] Diabetes Association (ADA) provides guidance for cutoff [...] Standards of Medical Care in Diabetes 2016, [place] Diabetes Association. Diabetes Care. 2016.39(Suppl 1). Performed By: #### 2 4323-8 ####[facility] MILLWRICLIA [id number] [place] [address] [place] Potassium [Moles/Vol] 5.3 mmol/L High 3.7-5.1 [facility] Comment on above: Order Comment: Speci men Type: BLOOD SPECIMENOrdering Facility: [facility] Address: [address] [place] [address] Performed By: #### 2 4323-8 ####[facility]LIA [id number] [place] [address] [place] Protein [Mass/Vol] 7.4 g/dL Normal 6.3-8.0 [facility] Comment on above: Order Comment: Speci men Type: BLOOD SPECIMENOrdering Facility: [facility] Address: [address] [place] [address] Performed By: #### 2 4323-8 ####[facility]LIA [id number] [place] [address] [place] Sodium [Moles/Vol] 136 mmol/L Normal 136-144 [facility] Comment on above: Order Comment: Speci men Type: BLOOD SPECIMENOrdering Facility: [facility] Address: [address] [place] [address] Performed By: #### 2 4323-8 ####[facility] [id number] [place] [address] [place] Urea nitrogen [Mass/Vol] 35 mg/dL High 9-24 [facility] Comment on above: Order Comment: Speci men Type: BLOOD SPECIMENOrdering Facility: [facility] Address: [facility] [place] [address] Performed By: #### 2 4323-8 ####[facility] JENNIFER ZHOU [id number] [place] [address] [place] DPYD/UGT1A1 GENOTYPING PANEL on 09-05-2024 DPYD/UGT1A1 GENOTYPING PANEL RESULT Normal [facility] Comment on above: Order Comment: Speci men Type: BLOOD SPECIMENOrdering Facility: [facility] Address: [address] [place], [place] [address]Maria [place] [address] Result Comment: [employer] ([employer] DPYD and UGT1A1 Genotyping Laboratory Accession Number: [id number] DPYD Genotype: *1/*1 DPYD Activity Score: 2 [...] Variant Details: NA UGT1A1 Variant Details: UGT1A1 [id number], c.-346C>T, g.[id number]>T (legacy name 80); UGT1A1 [id number], c.-41_-40dupTA g.[id number] (legacy name 28) DPYD Additional Information: In addition to increased risk of 5-fluorouracil toxicity, variants in the DPYD gene may be associated with DPD deficiency, an autosomal recessive inborn error of metabolism (OMIM: 788744). DPD deficiency exhibits a wide range of [...] list below) in the DPYD gene (OMIM 511983) and UGT1A1 gene (OMIM 495172). This test does not detect all sequence [...] By: #### D UPNL1 ####[facility]AR[facility] ILLUMINA LIMSCLIA [id number] [place] [address] [place] HBV core Ab Ser Qlon 025 HBV core Ab Ql (S) Negative Normal Negative [facility] Comment on above: Order Comment: Speci men Type: BLOOD SPECIMENOrdering Facility: [facility] Address: [address] [place] [address] Result Comment: No e vidence of current or past infection with Hepatitis B virus. Should recent infection be suspected, repeat testing may be considered 3-4 weeks after this draw. Performed By: #### 1 6933-4, 5194-3, ####[facility] LABCLIA [id number] [address] [place] HBV surface Ab Ql (S)on 08-09 HBV surface Ab Qn (S) <8.00 Normal [facility] Comment on above: Order Comment: Speci men Type: BLOOD SPECIMENOrdering Facility: [facility] Address: [address] [place] [address] Result Comment: <8 m IU/mL: No serological evidence of immunity to Hepatitis B Virus. >/= 8 to <12 mIU/mL: No serological evidence of immunity to Hepatitis B Virus. >/= 12 mIU/mL: Consistent with serological evidence of immunity to Hepatitis B Virus. Performed By: #### 1 6933-4, 5-3, ####[facility] LABCLIA [id number] [address] [address] [place] HBV surface Ab Ser Qlon 08-09 HBV surface Ab Ql (S) Negative Normal [facility] Comment on above: Order Comment: Speci men Type: BLOOD SPECIMENOrdering Facility: [facility] Address: [address] [place] [address] Result Comment: No s erological evidence of immunity to Hepatitis B Virus. Performed By: #### 1 6933-4, 5-3, 64900-9 ####[facility] LABIA [id number] [place] [address] [place] HBV surface Ag Ser Qlon 08-09 HBV surface Ag Ql (S) Negative Normal Negative [facility] Comment on above: Order Comment: Speci men Type: BLOOD SPECIMENOrdering Facility: [facility] Address: [address] [place] [address] Performed By: #### 1 6933-4, 5194-3, 11975-2 ####[facility] LABIA [id number] [place] [address] [place] HCV Ab Ser Qlon 09-05-2024 HCV Ab Ql (S) Negative Normal Negative [facility] Comment on above: Order Comment: Speci men Type: BLOOD SPECIMENOrdering Facility: [facility] Address: [address] [place] [address] Result Comment: The result suggests no evidence of infection with Hepatitis C virus. Should recent infection be suspected, repeat testing may be considered 4-6 weeks after this draw. Performed By: #### 1 6128-1 ####[facility] [id number] [place] [id number] [place] Cardiology Visit Reporton Cardiology Visit Report [facility] [address] [place], [place] [id number] OFFICE VISIT Date of Service: 08/30/24 MR#: [id number] Acct: [id number] Name: ABELADRO IVORY Rep #: [id number] 6 : 1950 Provider: TOÑO stover Age/Sex: 74/M [place] [facility] [place] Status: Signed HPI HPI History of Present Illness Details: Abelardo Ivory is a 74-year-old male who presents to the office today for a cardiovascular follow-up visit. He underwent a transurethral bladder resection on 06/27/[address] Mcclendon for concerns of a bladder mass. He states that he will be starting chemo treatments soon at [facility]. Patient has a history of aortic stenosis diagnosed in 2012. Patient underwent coronary angiography which revealed 80% stenosis in the RCA and patient was referred to [facility] for aortic valve and RCA revascularization. Patient underwent AVR plus CABG x 1 ([facility]imount #23, SVG to RCA at [place] on 02/12/2019). Patient did well postoperatively with echocardiogram demonstrating preserved ejection fraction, normally functioning prosthetic aortic valve with peak gradient 25 mmHg and mean gradient of 13 mmHg. Patient was diagnosed with an abdominal aortic aneurysm and was sent to [place] for an opinion. It was noted to [...] of aneurysm leak. Patient was transferred to [facility] facility and on 12/28/2021 patient proceeded with [...] air Intake Visit Reasons: 1 Y FU Employment Specialist Required: No Accompanied by: Self Is patient [...] Recent dx bladder cancer. To start treatment. [facility] Medical History Bladder cancer Wears dentures Wears glasses Bruising Easy bruising High cholesterol Smoker Shortness of breath on exertion History of echocardiogram Cardiology follow-up encounter Stage 3b chronic kidney disease (CKD) Thrombocytopenia Chronic kidney insufficiency Pleural effusion Secondary pulmonary arterial hypertension Atherosclerotic heart disease of [place] coronary artery without angina pectoris Intention tremor Carotid stenosis, bilateral Hyperlipidemia Nonrheumatic aortic (valve) stenosis Essential hypertension Tobacco dependence Bilateral ingui (more content not included)... Normal [facility] BLADDER SCANon 08-29-2024 Bladder scan volume 32ml [facility] CNOVon 08-29-2024 CNOV Office Visit (UROLAE ) ABELARDO IVORY ([id number]) 1950 M Date Time Provider Department 08/29/24 [...] (no units) Date Value 02/06/2019 Negative Specific [place], Ur (no units) Date Value 02/06/2019 1.017 [...] Take 5 mg by mouth once daily. twofiawrnjk-dnwogjcgg-f ilanter (TRELEGY ELLIPTA) 200-62.5-25 mcg inhalation powder [...] (more content not included)... Normal [facility] Ale 08-29-2024 CNPN Telephone (HEMCA3) ABELARDO IVORY ([id number]) 1950 Date Time Provider Department 08/29/24 CODEY CHRISTIANSON HEMCA3 During your visit today, we recorded the following information about you: Tabitha Hayes 08/29/2024 3:29 PM Signed Abelardo Ivory is calling Codey Christianson MD today regarding Software Firmware Engineer - Other Patient wants to have his radiation locally at the [facility] in [place]. [place] told him they need information from Dr. Christianson to make sure they have the treatment he needs/getting. Can someone call the patient back Patient has been identified by name and birthdate. Requesting response back: [phone] (home) [phone] (cell) Tabitha Hayes August 29, 2024 Karen Post, ANGELA 08/29/2024 4:50 PM Signed Returned call to Abelardo Ivory regarding establishing care at [facility]. Contacted [facility] and spoke with Saira in hem/onc and she was able to schedule Darrel for: 09/05/2024 @ 2PM with Dr. Lakeisha Rivers. All questions addressed. aKren KIRBY, RN Specialty Software Firmware Engineer Allergies As of Date: 08/29/2024 (No Known Allergies) Date Reviewed: 08/29/2024 Reviewed by: Marii Quick MA - Fully Assessed Reason for Visit: Software Firmware Engineer - Other [[id number]] Prescriptions as of 08/29/2024 - phenazopyridine (PYRIDIUM) [...] 5 mg by mouth once daily. - scesfsnbzwk-fudwqzdtp-n ilanter (TRELEGY ELLIPTA) 200-62.5-25 mcg inhalation powder [...] Status:Closed by KAREN POST on 08/29/24 Normal [facility] UA DIP, URINE (POC)on 2024 BILIRUBIN UA (POCT) Negative Negative [facility] CLARITY UA (POCT) Clear [facility] COLOR UA (POCT) Yellow [place] GLUCOSE UA (POCT) Negative Negative mg/dL [place] Hemoglobin Ql (U) Large Abnormal Negative [facility] Interpretation and review of laboratory results Abnormal [place] KETONE UA (POCT) Negative Negative mg/dL [place] LEUKOCYTES UA (POCT) Moderate Abnormal Negative [facility] NITRITE UA (POCT) Negative Negative [facility] PH UA (POCT) 6 4.5 - 8.0 [place] Protein Ql (U) 100 mg/dL Abnormal Negative [place] SPECIFIC GRAVITY UA (POCT) 1.025 1.005 - 1.030 [place] UROBILINOGEN UA (POCT) 0.2 Margaret l E.U./dL [place] Location:[facility], [address], [place], [address] [place] [address] POINT OF CARE [place] Ale 08-24-2024 OJN Telephone (MIGUEL A CASTILLO) ABELARDO IVORY ([id number]) 1950 M Date Time Provider Department 08/24/24 FARHEEN VALENTINEA JONATHAN During your visit today, we recorded the following information about you: Farheen Valentine, RN 08/24/2024 3:33 PM Signed CASE [id number]: Spoke with patient, states he saw urology this week and stent was placed. Patient states he has decided not to do the study and would like to follow in [place] for chemo if possible. Aware Dr Christianson will be notified. Allergies As of Date: 08/24/2024 (No Known Allergies) Date Reviewed: 08/21/2024 Reviewed by: Sonja Vargas, ANGELA - Fully Assessed Reason for Visit: CASE [id number] Update [Other] Prescriptions as of 08/24/2024 - amLODIPine (NORVASC) 5 mg tablet Take 5 mg by mouth once daily. - mvyblpjhzuz-rnddduwsl-s ilanter (TRELEGY ELLIPTA) 200-62.5-25 mcg inhalation powder [...] Encounter Status:Closed by FARHEEN VALENTINE on 08/24/24 [facility] Ale 08-22-2024 CNPN Telephone (MIGUEL A CASTILLO) ABELRADO IVORY ([id number]) 1950 M Date Time Provider Department 08/22/24 FARHEEN VALENTINE MIGUEL A CASTILLO During your visit today, we recorded the following information about you: Farheen Valentine RN 08/22/2024 12:24 PM Signed CASE [id number]: Left message on [employer] for pt to return call Allergies As of Date: 08/22/2024 (No Known Allergies) Date Reviewed: 08/21/2024 Reviewed by: Sonja Vargas, RN - Fully Assessed Reason for Visit: CASE [id number] Discussion [Other] Prescriptions as of 08/22/2024 - amLODIPine (NORVASC) 5 mg tablet Take 5 mg by mouth once daily. - ysejbjmbmin-ualksyfyy-j ilanter (TRELEGY ELLIPTA) 200-62.5-25 mcg inhalation powder [...] Status:Closed by FARHEEN VALENTINE on 08/22/24 Normal [facility] ANES POSTPROC EVALon 025 ANES POSTPROC EVAL HNO ID: [id number] Author: KALEIGH BENITES MD Service: Anesthesiology Author Type: Physician Type: Anesthesia Postprocedure Evaluation Filed: 08/21/2024 15:39 Note Text: POST ANESTHESIA EVALUATION NOTE : 1950 Procedure Summary Date: 08/21/24 Room / Location: [place] [address] [place] [address] OR Anesthesia Start: 1501 Anesthesia Stop: 1534 [...] August 21, 2024 TIME: 3:38 PM CSN: [id number] Normal [facility] ANES PRE-OPon 08-21-2024 ANES PRE-OP HNO ID: [id number] Author: MALCOLM ARTHUR MD Service: Anesthesiology Author [...] artery disease involving coronary bypass graft of [place] heart without angina pectoris (+) Essential hypertension [...] and consent discussed: yes. Patient / Responsible Democrat agrees to proceed: yes Patient / Surrogate [...] August 21, 2024 TIME: 2:20 PM CSN: [id number] [facility] 08-21-2024 CNPN Telephone (UROLAE) ABELARDO IVORY ([id number]) 1950 M Date Time Provider Department 08/21/24 [...] results on phone as they live in [place] MD Avni Rosales Margaret 08/22/2024 11:10 AM [...] Diagnosis:Other hydronephrosis [N13.39] Order(s):CT ABD/PEL WO IVCON [[id number]] Order #: [id number] FUTURE BASIC METABOLIC PANEL [SQBMP] Order #: [id number] FUTURE Prescriptions as of 08/24/2024 - amLODIPine (NORVASC) 5 mg tablet Take 5 mg by mouth once daily. - ofhgigqywgx-afucpavpm-i ilanter (TRELEGY ELLIPTA) 200-62.5-25 mcg inhalation powder [...] Encounter Status:Closed by STACY GAUTHIER on 08/21/24 [facility] OPERATIVE NOon 08-21-2024 OPERATIVE NO HNO ID: [id number] Author: STACY GAUTHIER MD Service: Urology Author Type: Physician Type: Operative Report Filed: 08/22/2024 03:14 Note Text: OPERATIVE/PROCEDURE REPORT LOG ID: [id number] SURGERY/PROCEDURE DATE: 08/21/2024 INCISION/PROCEDURE START TIME: 3:16 PM INCISION CLOSE/PROCEDURE END TIME: 3:26 PM SURGEON(S)/PROCEDURALIS T(S) AND COLLECTION ADVISOR(S): Surgeons and Role: * Stacy Gauthier MD [...] PGY-2 08/21/2024 3:41 PM Normal [facility] Bacteria Ur Culton 5 Bacteria identified Cx Nom (U) CULTURE, URINE: No growth (<1,000 CFU/ml) Normal [facility] Comment on above: Performed By: #### 6 30-4 #### [facility] CLIA [id number] [address] [place] [address] [place] HISTORY PHYSICALon 5 HISTORY PHYSICAL HNO ID: [id number] Author: MARISELA PICHARDO APRN.ASSISTANT DIRECTOR OF RESIDENCE LIFE Service: ? Author Type: Nurse Practitioner Type: [...] artery disease involving coronary bypass graft of [place] heart without angina pectoris Assessment: Followed by [facility] Cardiology - H/O CABG - taking [...] the prior echocardiographic exam performed on 09/29/2020 ([facility]. Limited study. Essential hypertension Assessment: taking taking [...] Take 5 mg by mouth once daily. ndslvapxufh-xdbgxjzly-d ilanter (TRELEGY ELLIPTA) 200-62.5-25 mcg inhalation powder [...] a bladder resection in June 2023 at [facility]. Today, he denies pain, rating 0 out of 10 on numeric pain scale. (more content not included)... Normal [facility] CNPNon 08-03-2024 CNPN Telephone (MIGUEL A CASTILLO) ABELARDO IVORY ([id number]) 1950 [place] Date Time Provider Department 08/03/24 [...] hol. Patient will need repeat TURBT at [facility] due to previously being done at [facility]. Allergies As of Date: 08/03/2024 (No [...] Encounter Status:Closed by FARHEEN VALENTINE on 08/03/24 [facility] CNOVon 08-02-2024 CNOV Office Visit (UROLAE ) ABELARDO IVORY ([id number]) 1950 M Date Time Provider Department 08/02/24 [...] (no units) Date Value 02/06/2019 Negative Specific [place], Ur (no units) Date Value 02/06/2019 1.017 [...] (more content not included)... Normal [facility] UA DIP, URINE (POC)on 2024 BILIRUBIN UA (POCT) Negative Negative [facility] CLARITY UA (POCT) Clear [facility] COLOR UA (POCT) Yellow [place] GLUCOSE UA (POCT) Negative Negative mg/dL [place] Hemoglobin Ql (U) Moderate Abnormal Negative [facility] Interpretation and review of laboratory results Abnormal [place] KETONE UA (POCT) Negative Negative mg/dL [place] LEUKOCYTES UA (POCT) Trace Abnormal Negative [facility] NITRITE UA (POCT) Negative Negative [facility] PH UA (POCT) 5.5 4.5 - 8.0 [place] Protein Ql (U) 100 mg/dL Abnormal Negative [place] SPECIFIC GRAVITY UA (POCT) 1.02 1.005 - 1.030 [place] UROBILINOGEN UA (POCT) 0.2 Margaret l E.U./dL [place] [facility], [address] [place] [address], [address] [facility] POINT OF CARE [place] CT ABD/PEL W IVCONon 025 CT ABD/PEL W IVCON * * *Final Report* * * DATE OF EXAM: Jul 31 2024 2:11PM [facility] 0530 - CT ABD/PEL W IVCON [...] compatible with urothelial cancer. No abdominopelvic metastasis. Associate Sales: [facility] Transcribe Date/Time: Jul 31 2024 3:04P Dictated by : CARLINE CHAPMAN MD This examination was interpreted and the report reviewed and electronically signed by: PADMINI BRUSH MD on Jul 31 2024 8:26PM EST [id number] Normal [facility] CT Abdomen and Pelvis W cont rast Darci 07-31-2024 IMPRESSION: Wall thickening along bladder trigone compatible with urothelial cancer. No abdominopelvic metastasis. Associate Sales[facility] Transcribe Date/Time: Jul 31 2024 3:04P Dictated by : CARLINE CHAPMAN MD This examination was interpreted and the report reviewed and electronically signed by: PADMINI BRUSH MD on Jul 31 2024 8:26PM EST DIVISION OF RADIOLOGY * * *Final Report* * * DATE OF EXAM: Jul 31 2024 2:11PM [facility] 0530 - CT ABD/PEL W IVCON [...] No additional findings. DIVISION OF RADIOLOGY Provider, [facility] - 07/31/2024 * * *Final Report* * * DATE OF EXAM: Jul 31 2024 2:11PM [facility] 0530 - CT ABD/PEL W IVCON [...] compatible with urothelial cancer. No abdominopelvic metastasis. Associate Sales: JESUS ALBERTO Transcribe Date/Time: Jul 31 2024 3:04P Dictated by : CARLINE CHAPMAN MD This examination was interpreted and the report reviewed and electronically signed by: PADMINI BRUSH MD on Jul 31 2024 8:26PM EST [place] Radiology Study observation (narrative) [facility] Abdomen and Pelvis W cont rast IVOrdered By: [facility]cf Provider on 07-31-[address] [place] [address] CHEST W IVCONon CT CHEST W IVCON * * *Final Report* * * DATE OF EXAM: Jul 31 2024 2:11PM [facility] 0539 - CT CHEST W IVCON [...] to a granulomatous process such as histoplasmosis. Associate Sales: JESUS ALBERTO Transcribe Date/Time: Jul 31 2024 2:19P Dictated by : JOHAN CARTER MD This examination was interpreted and the report reviewed and electronically signed by: JOHAN CARTER MD on Jul 31 2024 2:29PM EST [id number] Normal [facility] CT Chest W contrast Darci IMPRESSION: 1. Stable nodules in left lung measuring up to 5 mm, these are indeterminate, recommend continued attention on follow-up. No new lung nodules or consolidations have developed. 2. Stable borderline enlarged lymph nodes in the mediastinum, probably reactive or related to a granulomatous process such as histoplasmosis. Associate Sales: JESUS ALBERTO Transcribe Date/Time: Jul 31 2024 2:19P Dictated by : JOHAN CARTER MD This examination was interpreted and the report reviewed and electronically signed by: JOHAN CARTER MD on Jul 31 2024 2:29PM EST DIVISION OF RADIOLOGY * * *Final Report* * * DATE OF EXAM: Jul 31 2024 2:11PM [facility] 0539 - CT CHEST W IVCON [...] No additional findings. DIVISION OF RADIOLOGY Provider, [facility] - 07/31/2024 * * *Final Report* * * DATE OF EXAM: Jul 31 2024 2:11PM [facility] 0539 - CT CHEST W IVCON [...] to a granulomatous process such as histoplasmosis. Associate Sales: JESUS ALBERTO Transcribe Date/Time: Jul 31 2024 2:19P Dictated by : JOHAN CARTER MD This examination was interpreted and the report reviewed and electronically signed by: JOHAN CARTER MD on Jul 31 2024 2:29PM [facility] Radiology Study observation (narrative) [facility] OUTSIDE SURG PATH SLIDE REVI EWon 07-31-2024 AP DISCLAIMER Normal [facility] Comment on above: Order Comment: Speci men Type: FORMALIN-FIXED PARAFFIN-EMBEDDED TISSUE SPECIMENOrdering Facility: AP Outside Review Address: , , Result Comment: Panchito downey Developed Test (LDT) Disclaimer: Performance characteristics of immunohistochemical, immunofluorescent, and chromogenic in-situ hybridization tests have been determined by the performing laboratory within [place]'s Abelardo Maria A [facility] Pathology and Laboratory Medicine Department ([facility], [facility], [facility], [facility], [facility], or [facility][1]) in a manner consistent with CLIA requirements. One or more of these tests may not have been cleared or approved by the FDA. RT-PLM is regulated under CLIA as qualified to perform high-complexity testing. These tests are used for clinical purposes. These should not be regarded as investigational or for research. Positive and negative controls stain appropriately. Performed By: #### L [id number] ####[facility] [id number] [place] [id number] [place] CASE REPORT Normal [facility] Comment on above: Order Comment: Speci men Type: FORMALIN-FIXED PARAFFIN-EMBEDDED TISSUE SPECIMENOrdering Facility: AP Outside Review Address: , , Result Comment: [facility] Pathology Report Case: [id number] Authorizing Provider: Codey Christianson MD Collected: 07/31/2024 09:18 AM Ordering Location: [facility] Received: 07/31/2024 09:16 AM [facility] Pathologist: Mj Beltran MD Specimen: Slide(s), 4 SLIDES [id number] Performed By: #### L [id number] ####[facility] [id number] [address] STATES [facility] FINAL DIAGNOSIS Normal [facility] Comment on above: Order Comment: Speci men Type: FORMALIN-FIXED PARAFFIN-EMBEDDED TISSUE SPECIMENOrdering Facility: AP Outside Review Address: , , Result Comment: [facility]; [place], [place] ([id number]) A. Urinary bladder, transurethral resection: - Invasive urothelial carcinoma, high-grade, involving muscularis propria. JKM 07/31/2024 at 1058 EDT Performed By: #### L [id number] ####[facility] [id number] [place] [id number] [place] FINAL PERFORMING LAB Normal [facility] Comment on above: Order Comment: Speci men Type: FORMALIN-FIXED PARAFFIN-EMBEDDED TISSUE SPECIMENOrdering Facility: AP Outside Review Address: , , Result Comment: Diag nostic interpretation performed at: [facility], [address] [place] [address] CLIA# [id number] Cardiothoracic Physiotherapist: Antoine Tony MD Performed By: #### L [id number] ####[facility] [id number] [place] [id number] [place] CBC W Auto Differential pane l (Bld)on 07-26-2024 Basophils (Bld) [#/Vol] 0.05 10*3/uL [facility] Basophils/100 WBC (Bld) 0.7 % [facility] Differential cell count method Nom (Bld) Auto [place] Eosinophils (Bld) [#/Vol] 0.24 10*3/uL [facility] Eosinophils/100 WBC (Bld) 3.3 % [place] Erythrocyte distribution width (RBC) [Ratio] 13.8 % 11.5 - 15.0 % [place] Hematocrit (Bld) [Volume fraction] 38.1 % Low 39.0 - 51.0 % [place] Hemoglobin (Bld) [Mass/Vol] 12.2 g/dL Low 13.0 - 17.0 g/dL [place] Immature granulocytes (Bld) [#/Vol] [facility] Immature granulocytes/100 WBC (Bld) 0.1 % [place] Interpretation and review of laboratory results Abnormal [place] Lymphocytes (Bld) [#/Vol] 3.39 10*3/uL [place] Lymphocytes/100 WBC (Bld) 46.3 % [place] MCH (RBC) [Entitic mass] 29.8 pg 26.0 - 34.0 pg [place] MCHC (RBC) [Mass/Vol] 32 g/dL 30.5 - 36.0 g/dL [place] MCV (RBC) [Entitic vol] 92.9 fL 80.0 - 100.0 fL [place] Monocytes (Bld) [#/Vol] 0.64 10*3/uL [facility] Monocytes/100 WBC (Bld) 8.7 % [facility] Neutrophils (Bld) [#/Vol] 2.99 10*3/uL [place] Neutrophils/100 WBC (Bld) 40.9 % [place] Nucleated RBC (Bld) [#/Vol] [facility] Nucleated RBC/100 WBC (Bld) [Ratio] 0 % /100 WBC [place] Platelet mean volume (Bld) [Entitic vol] 8.8 fL Low 9.0 - 12.7 fL [place] Platelets (Bld) [#/Vol] 156 10*3/uL [place] RBC (Bld) [#/Vol] 4.1 10*6/uL Low 4.20 - 6.0 0 m/uL [place] WBC (Bld) [#/Vol] 7.32 10*3/uL [facility] Basophils (Bld) [#/Vol] 0.05 10*3/uL Normal <0.11 [facility] Comment on above: Order Comment: Speci men Type: BLOOD SPECIMENOrdering Facility: [facility] Address: [address] [place] [address] Performed By: #### 5 7021-8 ####[facility] [id number] [place] [address] [place] Basophils/100 WBC (Bld) 0.7 % Normal [facility] Comment on above: Order Comment: Speci men Type: BLOOD SPECIMENOrdering Facility: [facility] Address: [address] [place] [address] Performed By: #### 5 7021-8 ####[facility] [place] [id number] [place] [address] [place] Differential cell count method Nom (Bld) Auto Normal [facility] Comment on above: Order Comment: Speci men Type: BLOOD SPECIMENOrdering Facility: [facility] Address: [address] [place] [address] Performed By: #### 5 7021-8 ####[facility] [id number] [place] [address] [place] Eosinophils (Bld) [#/Vol] 0.24 10*3/uL Normal <0.46 [facility] Comment on above: Order Comment: Speci men Type: BLOOD SPECIMENOrdering Facility: [facility] Address: [address] [place] [address] Performed By: #### 5 7021-8 ####[facility] [id number] [place] [address] [place] Eosinophils/100 WBC (Bld) 3.3 % Normal [facility] Comment on above: Order Comment: Speci men Type: BLOOD SPECIMENOrdering Facility: [facility] Address: [address] [place] [address] Performed By: #### 5 7021-8 ####[facility] [place] [id number] [place] [address] [place] Erythrocyte distribution width (RBC) [Ratio] 13.8 % Normal 11.5-15.0 [facility] Comment on above: Order Comment: Speci men Type: BLOOD SPECIMENOrdering Facility: [facility] Address: [address] [place] [address] Performed By: #### 5 7021-8 ####[facility] [place] [id number] [place] [address] [place] Hematocrit (Bld) [Volume fraction] 38.1 % Low 39.0-51.0 [facility] Comment on above: Order Comment: Speci men Type: BLOOD SPECIMENOrdering Facility: [facility] Address: [address] [place] [address] Performed By: #### 5 7021-8 ####[facility] [place] [id number] [place] [address] [place] Hemoglobin (Bld) [Mass/Vol] 12.2 g/dL Low 13.0-17.0 [facility] Comment on above: Order Comment: Speci men Type: BLOOD SPECIMENOrdering Facility: [facility] Address: [address] [place] [address] Performed By: #### 5 7021-8 ####[facility] [place] [id number] [place] [address] [place] Immature granulocytes (Bld) [#/Vol] 10*3/uL Normal <0.10 [facility] Comment on above: Order Comment: Speci men Type: BLOOD SPECIMENOrdering Facility: [facility] Address: [address] [place] [address] Performed By: #### 5 7021-8 ####[facility] [id number] [place] [address] [place] Immature granulocytes/100 WBC (Bld) 0.1 % Normal [facility] Comment on above: Order Comment: Speci men Type: BLOOD SPECIMENOrdering Facility: [facility] Address: [address] [place] [address] Performed By: #### 5 7021-8 ####[facility] [place] [id number] [place] [address] [place] Lymphocytes (Bld) [#/Vol] 3.39 10*3/uL Normal 1.00-4.00 [facility] Comment on above: Order Comment: Speci men Type: BLOOD SPECIMENOrdering Facility: [facility] Address: [address] [place] [address] Performed By: #### 5 7021-8 ####[facility] [place] [id number] [place] [address] [place] Lymphocytes/100 WBC (Bld) 46.3 % Normal [facility] Comment on above: Order Comment: Speci men Type: BLOOD SPECIMENOrdering Facility: [facility] Address: [address] [place] [address] Performed By: #### 5 7021-8 ####[facility] [id number] [place] [address] [place] MCH (RBC) [Entitic mass] 29.8 pg Normal 26.0-34.0 [facility] Comment on above: Order Comment: Speci men Type: BLOOD SPECIMENOrdering Facility: [facility] Address: [address] [place] [address] Performed By: #### 5 7021-8 ####[facility] [id number] [place] [address] [place] MCHC (RBC) [Mass/Vol] 32.0 g/dL Normal 30.5-36.0 [facility] Comment on above: Order Comment: Speci men Type: BLOOD SPECIMENOrdering Facility: [facility] Address: [address] [place] [address] Performed By: #### 5 7021-8 ####[facility] [id number] [place] [address] [place] MCV (RBC) [Entitic vol] 92.9 fL Normal 80.0-100.0 [facility] Comment on above: Order Comment: Speci men Type: BLOOD SPECIMENOrdering Facility: [facility] Address: [address] [place] [address] Performed By: #### 5 7021-8 ####[facility] [place] [id number] [place] [address] [place] Monocytes (Bld) [#/Vol] 0.64 10*3/uL Normal <0.87 [facility] Comment on above: Order Comment: Speci men Type: BLOOD SPECIMENOrdering Facility: [facility] [facility] Address: [address] [place] [address] Performed By: #### 5 7021-8 ####[facility] [id number] [place] [address] [place] Monocytes/100 WBC (Bld) 8.7 % Normal [facility] Comment on above: Order Comment: Speci men Type: BLOOD SPECIMENOrdering Facility: [facility] Address: [address] [place] [address] Performed By: #### 5 7021-8 ####[facility] [id number] [place] [address] [place] Neutrophils (Bld) [#/Vol] 2.99 10*3/uL Normal 1.45-7.50 [facility] Comment on above: Order Comment: Speci men Type: BLOOD SPECIMENOrdering Facility: [facility] Address: [address] [place] [address] Performed By: #### 5 7021-8 ####[facility] [id number] [place] [address] [place] Neutrophils/100 WBC (Bld) 40.9 % Normal [facility] Comment on above: Order Comment: Speci men Type: BLOOD SPECIMENOrdering Facility: [facility] Address: [address] [place] [address] Performed By: #### 5 7021-8 ####[facility] [id number] [place] [address] [place] Nucleated RBC (Bld) [#/Vol] 10*3/uL Normal <0.01 [facility] Comment on above: Order Comment: Speci men Type: BLOOD SPECIMENOrdering Facility: [facility] Address: [address] [place] [address] Performed By: #### 5 7021-8 ####[facility] [id number] [place] [address] [place] Nucleated RBC/100 WBC (Bld) [Ratio] 0.0 /100 WBC Normal [facility] Comment on above: Order Comment: Speci men Type: BLOOD SPECIMENOrdering Facility: [facility] Address: [address] [place] [address] Performed By: #### 5 7021-8 ####[facility] [id number] [place] [address] [place] Platelet mean volume (Bld) [Entitic vol] 8.8 fL Low 9.0-12.7 [facility] Comment on above: Order Comment: Speci men Type: BLOOD SPECIMENOrdering Facility: [facility] Address: [address] [place] [address] Performed By: #### 5 7021-8 ####[facility] [id number] [address] [id number] [address] [place] Platelets (Bld) [#/Vol] 156 10*3/uL Normal 150-400 [facility] Comment on above: Order Comment: Speci men Type: BLOOD SPECIMENOrdering Facility: [facility] Address: [address] [place] [address] Performed By: #### 5 7021-8 ####[facility] [id number] [place] [address] [place] RBC (Bld) [#/Vol] 4.10 10*6/uL Low 4.20-6.00 [facility] Comment on above: Order Comment: Speci men Type: BLOOD SPECIMENOrdering Facility: [facility] Address: [address] [place] [address] Performed By: #### 5 7021-8 ####[facility] [id number] [place] [address] [place] WBC (Bld) [#/Vol] 7.32 10*3/uL Normal 3.70-11.00 [facility] Comment on above: Order Comment: Speci men Type: BLOOD SPECIMENOrdering Facility: [facility] Address: [address] [place] [address] Performed By: #### 5 7021-8 ####[facility] [id number] [place] [address] [place] CNOVSPon 07-26-2024 CNOVSP Visit (SP) Office ([id number]) ABELARDO IVORY ([id number]) 1950 M Date Time Provider Department 07/26/24 [...] No Does patient want to see a Energy Efficiency Finance Manager? No (yes to any of above refer patient to schedulers for dietitian appointment) ) Does patient have any new or increased numbness or tingling of extremities? No Is patient interested in fertility information? No Does patient need any prescription refills? No Does patient have an advanced directive in place? Yes, copies are in [email or web address] Electronically Signed By: SUDHA Davis Lisa, LPN 08/07/2024 2:06 PM Signed Additional intake questions: Has the patient had fever, nausea, vomiting, diarrhea, constipation, fatigue for > 1 week? No Does the patient have a decreased appetite? No Does patient want to see a Energy Efficiency Finance Manager? No (yes to any of above refer patient to schedulers for dietitian appointment) ) Does patient have any new or increased numbness or tingling of extremities? No Is patient interested in fertility information? No Does patient need any prescription refills? No Does patient have an advanced directive in place? Yes, copies are in [email or web address] Electronically Signed By: SUDHA Davis Shilpa, MD 08/07/2024 2:06 PM Signed [facility] INITIAL CONSULT NOTE Date of Service: [...] 0 a (more content not included)... Normal [facility] Comprehensive metabolic 2000 panelon 07-26-2024 Albumin [Mass/Vol] 4.2 g/dL 3.9 - 4.9 g/dL [place] ALP [Catalytic activity/Vol] 76 U/L 38 - 113 U/L [place] ALT [Catalytic activity/Vol] 12 U/L 10 - 54 U/L [place] Anion gap [Moles/Vol] 13 mmol/L 8 - 15 mmol/L [place] AST [Catalytic activity/Vol] 19 U/L 14 - 40 U/L [place] Bilirubin [Mass/Vol] 0.3 mg/dL 0.2 - 1 .3 mg/dL [place] Calcium [Mass/Vol] 9.3 mg/dL 8.5 - 10. 2 mg/dL [place] Chloride [Moles/Vol] 103 mmol/L 98 - 10 7 mmol/L [place] CO2 [Moles/Vol] 23 mmol/L 22 - 30 mmol/L [place] Creatinine [Mass/Vol] 1.54 mg/dL High 0.73 - 1.22 mg/dL [place] GFR/1.73 sq M.predicted among non-blacks MDRD (S/P/Bld) [Vol rate/Area] 47 mL/min/{1.73_m2} Low - PINF [place] Comment on above: Estimated Glomerular Filtration Rate [...] 106 mg/dL High 74 - 99 mg/dL [place] Comment on above: The [place] Diab[employer] Association (ADA) provides guidance for [...] Standards of Medical Care in Diabetes 2016, [place] [employer]. Diabetes Care. 2016.39(Suppl 1). Interpretation and review of laboratory results Abnormal [place] Potassium [Moles/Vol] 4.9 mmol/L 3.7 - 5.1 mmol/L [place] Protein [Mass/Vol] 7.1 g/dL 6.3 - 8.0 g/dL [place] Sodium [Moles/Vol] 139 mmol/L 136 - 144 mmol/L [place] Urea nitrogen [Mass/Vol] 34 mg/dL High 9 - 24 mg/dL [facility] Albumin [Mass/Vol] 4.2 g/dL Normal 3.9-4.9 [facility] Comment on above: Order Comment: Speci men Type: BLOOD SPECIMENOrdering Facility: [facility] Address: [address] [place] [address] Performed By: #### 2 4323-8 ####[facility] [id number] [place] [address] [place] ALP [Catalytic activity/Vol] 76 U/L Normal 38-113 [facility] Comment on above: Order Comment: Speci men Type: BLOOD SPECIMENOrdering Facility: [facility] Address: [address] [place] [address] Performed By: #### 2 4323-8 ####[facility] [id number] [place] [address] [place] ALT [Catalytic activity/Vol] 12 U/L Normal 10-54 [facility] Comment on above: Order Comment: Speci men Type: BLOOD SPECIMENOrdering Facility: [facility] Address: [address] [place] [address] Performed By: #### 2 4323-8 ####[facility] [id number] [place] [address] [place] Anion gap [Moles/Vol] 13 mmol/L Normal 8-15 [facility] Comment on above: Order Comment: Speci men Type: BLOOD SPECIMENOrdering Facility: [facility] Address: [address] [place] [address] Performed By: #### 2 4323-8 ####[facility] [id number] [place] [address] [place] AST [Catalytic activity/Vol] 19 U/L Normal 14-40 [facility] Comment on above: Order Comment: Speci men Type: BLOOD SPECIMENOrdering Facility: [facility] Address: [address] [place] [address] Performed By: #### 2 4323-8 ####[facility] [id number] [place] [address] [place] Bilirubin [Mass/Vol] 0.3 mg/dL Normal 0.2-1.3 [facility] Comment on above: Order Comment: Speci men Type: BLOOD SPECIMENOrdering Facility: [facility] Address: [address] [place] [address] Performed By: #### 2 4323-8 ####[facility] [id number] [place] [address] [place] Calcium [Mass/Vol] 9.3 mg/dL Normal 8.5-10.2 [facility] Comment on above: Order Comment: Speci men Type: BLOOD SPECIMENOrdering Facility: [facility] Address: [address] [place] [address] Performed By: #### 2 4323-8 ####[facility] [id number] [place] [address] [place] Chloride [Moles/Vol] 103 mmol/L Normal 98-107 [facility] Comment on above: Order Comment: Speci men Type: BLOOD SPECIMENOrdering Facility: [facility] Address: [address] [place] [address] Performed By: #### 2 4323-8 ####[facility] [id number] [place] [address] [place] CO2 [Moles/Vol] 23 mmol/L Normal 22-30 [facility] Comment on above: Order Comment: Speci men Type: BLOOD SPECIMENOrdering Facility: [facility] Address: [address] [place] [address] Performed By: #### 2 4323-8 ####[facility] [id number] [place] [address] [place] Creatinine [Mass/Vol] 1.54 mg/dL High 0.73-1.22 [facility] Comment on above: Order Comment: Speci men Type: BLOOD SPECIMENOrdering Facility: [facility] Address: [address] [place] [address] Performed By: #### 2 4323-8 ####[facility] [id number] [place] [address] [place] [facility] Creatinine and Glomerular filtration rate.predicted panel (S/P/Bld) 47 mL/min/1.73m??? Low >=60 [facility] Comment on above: Order Comment: Speci men Type: BLOOD SPECIMENOrdering Facility: [facility] Address: [address] [place] [address] Result Comment: Amy mated Glomerular Filtration Rate [...] By: #### 2 4323-8 ####[facility] [id number] [place] [address] [place] Glucose [Mass/Vol] 106 mg/dL High 74-99 [facility] Comment on above: Order Comment: Speci men Type: BLOOD SPECIMENOrdering Facility: [facility] Address: [address] [place] [address] Result Comment: The [place] Diabetes Association (ADA) provides guidance for cutoff [...] Standards of Medical Care in Diabetes 2016, [place] [employer]. Diabetes Care. 2016.39(Suppl 1). Performed By: #### 2 4323-8 ####[facility] [id number] [place] [address] [place] Potassium [Moles/Vol] 4.9 mmol/L Normal 3.7-5.1 [facility] Comment on above: Order Comment: Speci men Type: BLOOD SPECIMENOrdering Facility: [facility] Address: [address] [place] [address] Performed By: #### 2 4323-8 ####[facility] [id number] [place] [address] [place] Protein [Mass/Vol] 7.1 g/dL Normal 6.3-8.0 [facility] Comment on above: Order Comment: Speci men Type: BLOOD SPECIMENOrdering Facility: [facility] Address: [address] [place] [address] Performed By: #### 2 4323-8 ####[facility] [id number] [place] [address] [place] Sodium [Moles/Vol] 139 mmol/L Normal 136-144 [facility] Comment on above: Order Comment: Speci men Type: BLOOD SPECIMENOrdering Facility: [facility] Address: [address] [place] [address] Performed By: #### 2 4323-8 ####[facility] [id number] [place] [address] [place] Urea nitrogen [Mass/Vol] 34 mg/dL High 10-31 [facility] Comment on above: Order Comment: Speci men Type: BLOOD SPECIMENOrdering Facility: [facility] Address: [address] [place] [address] Performed By: #### 2 4323-8 ####[facility] [id number] [address] [place] Anion gap in Serum or Plasma Ordered By: Padmini Carrasco on 07-09-2024 Anion gap [Moles/Vol] 10 mmol/L 5-15 [facility] BUN/creatinine ratioOrdered By: Padmini Carrasco on 07-09-2024 Urea nitrogen/Creatinine [Mass ratio] 22.0 mg/mg High - [facility] Basic Metabolic Profile (BMP )on 07-09-2024 BUN/CRE 22.0 RATIO High - [facility] Comment on above: Order Comment: Order Date: 10/12/23 Order Info: 0786-1 - CMP Order Info: [id number] - LIPID Order Info: 301-3 - TSH Order Info: 2857-1 - PSA Order Info: 2498-4 - FE Performed By: #### L 506.1001, L509.1000, L503.0106 #### [facility] [address] [place], [address] Calcium [Mass/Vol] 9.2 mg/dL Normal 7.6-11.0 [facility] Comment on above: Order Comment: Order Date: 10/12/23 Order Info: 0786-1 - CMP Order Info: [id number] - LIPID Order Info: 301-3 - TSH Order Info: 2857-1 - PSA Order Info: 2498-4 - FE Performed By: #### L 506.1001, L509.1000, L503.0106 #### [facility] [address] [place], [address] Chloride [Moles/Vol] 105 mmol/L Normal 98-108 [facility] Comment on above: Order Comment: Order Date: 10/12/23 Order Info: 0786-1 - CMP Order Info: [id number] - LIPID Order Info: 3 - TSH Order Info: 2851 - PSA Order Info: 2498-4 - FE Performed By: #### L 506.1001, L509.1000, L503.0106 #### [facility] [address] [place], [address] CO2 [Moles/Vol] 26.1 mmol/L Normal 21.0-32.0 [facility] Comment on above: Order Comment: Order Date: 10/12/23 Order Info: 785-1 - CMP Order Info: [id number] - LIPID Order Info: 3015-3 - TSH Order Info: 2851 - PSA Order Info: 2498-4 - FE Performed By: #### L 506.1001, L509.1000, L503.0106 #### [facility] [address] [place], [address] Creatinine [Mass/Vol] 1.74 mg/dL High 0.70-1.20 [facility] Comment on above: Order Comment: Order Date: 10/12/23 Order Info: 0786-1 - CMP Order Info: [id number] - LIPID Order Info: 3 - TSH Order Info: 2851 - PSA Order Info: 2498-4 - FE Performed By: #### L 506.1001, L509.1000, L503.0106 #### [facility] [address] [place], [address] GAP 10 Normal 5-15 [facility] Comment on above: Order Comment: Order Date: 10/12/23 Order Info: 785-1 - CMP Order Info: - LIPID Order Info: [id number] - TSH Order Info: 2856-02 - PSA Order Info: 2497-05 - FE Performed By: #### L 506.1001, L509.1000, L503.0106 #### [facility] [address] [place], [address] GFR/1.73 sq M.predicted among non-blacks MDRD (S/P/Bld) [Vol rate/Area] 41 mL/min/{1.73_m2} Low >60 [facility] Comment on above: Order Comment: Order Date: 10/12/23 Order Info: 785- - CMP Order Info: - LIPID Order Info: [id number] - TSH Order Info: 2856-02 - PSA Order Info: 2497-05 - Result Comment: mL/m in/1.73m2 CKD-EPI Creatinine Equation (2020) Performed By: #### L 506.1001, L509.1000, L503.0106 #### [facility] [address] [place], [address] Glucose [Mass/Vol] 108 mg/dL High 70-99 [facility] Comment on above: Order Comment: Order Date: 10/12/23 Order Info: 785- - CMP Order Info: [id number] - LIPID Order Info: [id number] - TSH Order Info: 2856-02 - PSA Order Info: 2497-05 - FE Performed By: #### L 506.1001, L509.1000, L503.0106 #### [facility] [address] [place], [address] Potassium [Moles/Vol] 4.8 mmol/L Normal 3.3-5.1 [facility] Comment on above: Order Comment: Order Date: 10/12/23 Order Info: 785- - CMP Order Info: - LIPID Order Info: [id number] - TSH Order Info: 2856-02 - PSA Order Info: 2497-05 - FE Performed By: #### L 506.1001, L509.1000, L503.0106 #### [facility] [address] [place], [address] Sodium [Moles/Vol] 141 mmol/L Normal 133-145 [facility] Comment on above: Order Comment: Order Date: 10/12/23 Order Info: 0786-1 - CMP Order Info: [id number] - LIPID Order Info: 3016-3 - TSH Order Info: 2857 - PSA Order Info: 2497-05 - FE Performed By: #### L 506.1001, L509.1000, L503.0106 #### [facility] [address] [place], [address] Urea nitrogen [Mass/Vol] 38 mg/dL High 4-19 [facility] Comment on above: Order Comment: Order Date: 10/12/23 Order Info: 0786-1 - CMP Order Info: [id number] - LIPID Order Info: 6-3 - TSH Order Info: [id number] - PSA Order Info: 2497-05 - FE Performed By: #### L 506.1001, L509.1000, L503.0106 #### [facility] [address] [place], [place], [address] Carbon dioxide, total [Moles /volume] in Central venous bloodOrdered By: Padmini Carrasco on 07-09-2024 CO2 [Moles/Vol] 26.1 mmol/L 21.0-32.0 [facility] Chloride assayOrdered By: Rambo Carrasco on 07-09-2024 Chloride [Moles/Vol] 105 mmol/L 98-108 [facility] Glomerular filtration rate ( GFR) estimation/1.73 sq m using serum, plasma, or whole bOrdered By: Padmini Carrasco on 07-09-2024 GFR/1.73 sq M.predicted among non-blacks MDRD (S/P/Bld) [Vol rate/Area] 41 mL/min/{1.73_m2} Low >60 [facility] Comment on above: mL/min/1.73m2 CKD-EP I Creatinine Equation (2020) Potassium measurement (mass/ volume)Ordered By: Padmini Carrasco on 07-09-2024 Potassium (Unsp spec) [Mass/Vol] 4.8 mmol/L 3.3-5.1 [facility] Serum creatinine measurement (mass/volume)Ordered By: Padmini Carrasco on 07-09-2024 Creatinine [Mass/Vol] 1.74 mg/dL High 0.70-1.20 [facility] Serum glucose measurement (m ass/volume)Ordered By: Padmini Carrasco on 07-09-2024 Glucose [Mass/Vol] 108 mg/dL High 70-99 [facility] Serum or plasma calcium jamel urement (mass/volume)Ordered By: Padmini Carrasco on 07-09-2024 Calcium [Mass/Vol] 9.2 mg/dL 7.6-11.0 [facility] Serum or plasma urea nitroge n measurement (mass/volume)Ordered By: Padmini Carrasco on 07-09-2024 Urea nitrogen [Mass/Vol] 38 mg/dL High - [facility] Sodium levelOrdered By: Jaz Carrasco on 07-09-2024 Sodium [Moles/Vol] 141 mmol/L 133-145 [facility] Basic Metabolic Profile (BMP )on 06-30-2024 BUN Normal - [facility] Comment on above: Result Comment: Canc elled via OM: Order cancelled - Patient discharged Performed By: #### L 100.0100, L500.2500 #### [facility] [address] [place], [address] BUN/CRE Normal - [facility] Comment on above: Result Comment: Canc elled via OM: Order cancelled - Patient discharged Performed By: #### L 100.0100, L500.2500 #### [facility] [address] [place], [address] Calcium Normal 7.6-11.0 [facility] Comment on above: Result Comment: Canc elled via OM: Order cancelled - Patient discharged Performed By: #### L 100.0100, L500.2500 #### [facility] [address] [place], [address] CL Normal 98-108 [facility] Comment on above: Result Comment: Canc elled via OM: Order cancelled - Patient discharged Performed By: #### L 100.0100, L500.2500 #### [facility] [address] [place], [address] CO2 Normal 21.0-32.0 [facility] Comment on above: Result Comment: Canc elled via OM: Order cancelled - Patient discharged Performed By: #### L 100.0100, L500.2500 #### [facility] [address] [place], [address] CREAT,SERUM Normal 0.70-1.20 [facility] Comment on above: Result Comment: Canc elled via OM: Order cancelled - Patient discharged Performed By: #### L 100.0100, L500.2500 #### [facility] [address] [place], [address] eGFR Normal >60 [facility] Comment on above: Result Comment: Canc elled via OM: Order cancelled - Patient discharged Performed By: #### L 100.0100, L500.2500 #### [facility] [address] [place], [address] GAP Normal 5-15 [facility] Comment on above: Result Comment: Canc elled via OM: Order cancelled - Patient discharged Performed By: #### L 100.0100, L500.2500 #### [facility] [address] [place], [address] GLU Normal 70-99 [facility] Comment on above: Result Comment: Canc elled via OM: Order cancelled - Patient discharged Performed By: #### L 100.0100, L500.2500 #### [facility] [address] [place], [address] Potassium Normal 3.3-5.1 [facility] Comment on above: Result Comment: Canc elled via OM: Order cancelled - Patient discharged Performed By: #### L 100.0100, L500.2500 #### [facility] [address] [place], [address] Basic Metabolic Profile (BMP) Normal 133-145 [facility] Comment on above: Result Comment: Canc elled via OM: Order cancelled - Patient discharged Performed By: #### L 100.0100, L500.2500 #### [facility] [address] [place], [address] CBC W/Diff, Automatedon 05-2 Absolute Neut Normal 2.0-7.7 [facility] Comment on above: Result Comment: Canc elled via OM: Order cancelled - Patient discharged Performed By: #### L 100.0100, L500.2500 #### [facility] [address] [place], [address] HCT Normal 40-54 [facility] Comment on above: Result Comment: Canc elled via OM: Order cancelled - Patient discharged Performed By: #### L 100.0100, L500.2500 #### [facility] [address] [place], [address] HGB Normal 13.0-16.5 [facility] Comment on above: Result Comment: Canc elled via OM: Order cancelled - Patient discharged Performed By: #### L 100.0100, L500.2500 #### [facility] [address] [place], [address] MCH Normal 27.0-32.0 [facility] Comment on above: Result Comment: Canc elled via OM: Order cancelled - Patient discharged Performed By: #### L 100.0100, L500.2500 #### [facility] [address] [place], [address] MCHC Normal 32-36 [facility] Comment on above: Result Comment: Canc elled via OM: Order cancelled - Patient discharged Performed By: #### L 100.0100, L500.2500 #### [facility] [address] [place], [address] MCV Normal 80-94 [facility] Comment on above: Result Comment: Canc elled via OM: Order cancelled - Patient discharged Performed By: #### L 100.0100, L500.2500 #### [facility] [address] [place], [address] NEUT% Normal 47-70 [facility] Comment on above: Result Comment: Canc elled via OM: Order cancelled - Patient discharged Performed By: #### L 100.0100, L500.2500 #### [facility] [address] [place], [address] PLT Normal 150-450 [facility] Comment on above: Result Comment: Canc elled via OM: Order cancelled - Patient discharged Performed By: #### L 100.0100, L500.2500 #### [facility] [address] [place], [address] RBC Normal 4.6-6.2 [facility] Comment on above: Result Comment: Canc elled via OM: Order cancelled - Patient discharged Performed By: #### L 100.0100, L500.2500 #### [facility] [address] [place], [address] RDW CV Normal 11.6-14.6 [facility] Comment on above: Result Comment: Canc elled via OM: Order cancelled - Patient discharged Performed By: #### L 100.0100, L500.2500 #### [facility] [address] [place], [address] RDW SD Normal 35.1-43.9 [facility] Comment on above: Result Comment: Canc elled via OM: Order cancelled - Patient discharged Performed By: #### L 100.0100, L500.2500 #### [facility] [address] [place], [address] WBC Normal 4.4-11.0 [facility] Comment on above: Result Comment: Canc elled via OM: Order cancelled - Patient discharged Performed By: #### L 100.0100, L500.2500 #### [facility] [address] [place], [address] Basic Metabolic Profile (BMP )on 06-29-2024 BUN Normal 4-19 [facility] Comment on above: Result Comment: Canc elled via OM: Order cancelled - Patient discharged Performed By: #### L 506.1001, L509.1000, L503.0106 #### [facility] [address] [place], [address] BUN/CRE Normal 10-20 [facility] Comment on above: Result Comment: Canc elled via OM: Order cancelled - Patient discharged Performed By: #### L 506.1001, L509.1000, L503.0106 #### [facility] [address] [place], [address] Calcium Normal 7.6-11.0 [facility] Comment on above: Result Comment: Canc elled via OM: Order cancelled - Patient discharged Performed By: #### L 506.1001, L509.1000, L503.0106 #### [facility] [address] [place], [address] CL Normal 98-108 [facility] Comment on above: Result Comment: Canc elled via OM: Order cancelled - Patient discharged Performed By: #### L 506.1001, L509.1000, L503.0106 #### [facility] [address] [place], [address] CO2 Normal 21.0-32.0 [facility] Comment on above: Result Comment: Canc elled via OM: Order cancelled - Patient discharged Performed By: #### L 506.1001, L509.1000, L503.0106 #### [facility] [address] [place], [address] CREAT,SERUM Normal 0.70-1.20 [facility] Comment on above: Result Comment: Canc elled via OM: Order cancelled - Patient discharged Performed By: #### L 506.1001, L509.1000, L503.0106 #### [facility] [address] [place], [address] eGFR Normal >60 [facility] Comment on above: Result Comment: Canc elled via OM: Order cancelled - Patient discharged Performed By: #### L 506.1001, L509.1000, L503.0106 #### [facility] [address] [place], [address] GAP Normal 5-15 [facility] Comment on above: Result Comment: Canc elled via OM: Order cancelled - Patient discharged Performed By: #### L 506.1001, L509.1000, L503.0106 #### [facility] [address] [place], [address] GLU Normal 70-99 [facility] Comment on above: Result Comment: Canc elled via OM: Order cancelled - Patient discharged Performed By: #### L 506.1001, L509.1000, L503.0106 #### [facility] [address] [place], [address] Potassium Normal 3.3-5.1 [facility] Comment on above: Result Comment: Canc elled via OM: Order cancelled - Patient discharged Performed By: #### L 506.1001, L509.1000, L503.0106 #### [facility] [address] [place], [address] Basic Metabolic Profile (BMP) Normal 133-145 [facility] Comment on above: Result Comment: Canc elled via OM: Order cancelled - Patient discharged Performed By: #### L 506.1001, L509.1000, L503.0106 #### [facility] [address] [place], [address] CBC W/Diff, Automatedon 05-2 Absolute Neut Normal 2.0-7.7 [facility] Comment on above: Result Comment: Canc elled via OM: Order cancelled - Patient discharged Performed By: #### L 506.1001, L509.1000, L503.0106 #### [facility] [address] [place], [address] HCT Normal 40-54 [facility] Comment on above: Result Comment: Canc elled via OM: Order cancelled - Patient discharged Performed By: #### L 506.1001, L509.1000, L503.0106 #### [facility] [address] [place], [address] HGB Normal 13.0-16.5 [facility] Comment on above: Result Comment: Canc elled via OM: Order cancelled - Patient discharged Performed By: #### L 506.1001, L509.1000, L503.0106 #### [facility] [address] [place], [address] MCH Normal 27.0-32.0 [facility] Comment on above: Result Comment: Canc elled via OM: Order cancelled - Patient discharged Performed By: #### L 506.1001, L509.1000, L503.0106 #### [facility] [address] [place], [address] MCHC Normal 32-36 [facility] Comment on above: Result Comment: Canc elled via OM: Order cancelled - Patient discharged Performed By: #### L 506.1001, L509.1000, L503.0106 #### [facility] [address] [place], [address] MCV Normal 80-94 [facility] Comment on above: Result Comment: Canc elled via OM: Order cancelled - Patient discharged Performed By: #### L 506.1001, L509.1000, L503.0106 #### [facility] [address] [place], [address] NEUT% Normal 47-70 [facility] Comment on above: Result Comment: Canc elled via OM: Order cancelled - Patient discharged Performed By: #### L 506.1001, L509.1000, L503.0106 #### [facility] [address] [place], [address] PLT Normal 150-450 [facility] Comment on above: Result Comment: Canc elled via OM: Order cancelled - Patient discharged Performed By: #### L 506.1001, L509.1000, L503.0106 #### [facility] [address] [place], [address] RBC Normal 4.6-6.2 [facility] Comment on above: Result Comment: Canc elled via OM: Order cancelled - Patient discharged Performed By: #### L 506.1001, L509.1000, L503.0106 #### [facility] [address] [place], [address] RDW CV Normal 11.6-14.6 [facility] Comment on above: Result Comment: Canc elled via OM: Order cancelled - Patient discharged Performed By: #### L 506.1001, L509.1000, L503.0106 #### [facility] [address] [place], [address] RDW SD Normal 35.1-43.9 [facility] Comment on above: Result Comment: Canc elled via OM: Order cancelled - Patient discharged Performed By: #### L 506.1001, L509.1000, L503.0106 #### [facility] [address] [place], [address] WBC Normal 4.4-11.0 [facility] Comment on above: Result Comment: Canc elled via OM: Order cancelled - Patient discharged Performed By: #### L 506.1001, L509.1000, L503.0106 #### [facility] [address] [place], [address] Absolute lymphocyte countOrd ered By: Jose J Mcclendon on 06-28-2024 Lymphocytes Auto (Unsp spec) [#/Vol] 0.97 10*3/uL 0.83-4.51 [facility] Absolute neutrophil countOrd ered By: Jose J Mcclendon on 06-28-2024 Neutrophils (Bld) [#/Vol] 6.6 10*3/uL 2.0-7.7 [facility] Anion gap in Serum or Plasma Ordered By: Jose J Mcclendon on 06-28-2024 Anion gap [Moles/Vol] 12 mmol/L 5-15 [facility] Automated lymphocyte count a s percentage of total leukocytesOrdered By: Jose J Mcclendon on 06-28-2024 Lymphocytes/100 WBC Auto (Unsp spec) 11.9 % Low 19-41 [facility] BUN/creatinine ratioOrdered By: Jose J Mcclendon on 06-28-2024 Urea nitrogen/Creatinine [Mass ratio] 16.4 mg/mg 10-20 [facility] Basic Metabolic Profile (BMP )on 06-28-2024 BUN/CRE 16.4 RATIO Normal - [facility] Comment on above: Performed By: #### L 506.1001, L509.1000, L503.0106 #### [facility] [address] [place], [address] Calcium [Mass/Vol] 8.1 mg/dL Normal 7.6-11.0 [facility] Comment on above: Performed By: #### L 506.1001, L509.1000, L503.0106 #### [facility] [address] [place], [address] Chloride [Moles/Vol] 102 mmol/L Normal 98-108 [facility] Comment on above: Performed By: #### L 506.1001, L509.1000, L503.0106 #### [facility] [address] [place], [address] CO2 [Moles/Vol] 20.1 mmol/L Low 21.0-32.0 [facility] Comment on above: Performed By: #### L 506.1001, L509.1000, L503.0106 #### [facility] [address] [place], [address] Creatinine [Mass/Vol] 2.95 mg/dL High 0.70-1.20 [facility] Comment on above: Performed By: #### L 506.1001, L509.1000, L503.0106 #### [facility] [address] [place], [address] ECRCL 19.82 ml/min Low 50-250 [facility] Comment on above: Performed By: #### L 506.1001, L509.1000, L503.0106 #### [facility] [address] [place], [address] GAP 12 Normal 5-15 [facility] Comment on above: Performed By: #### L 506.1001, L509.1000, L503.0106 #### [facility] [address] [place], [address] GFR/1.73 sq M.predicted among non-blacks MDRD (S/P/Bld) [Vol rate/Area] 22 mL/min/{1.73_m2} Low >60 [facility] Comment on above: Result Comment: mL/m in/1.73m2 CKD-EPI Creatinine Equation (2020) Performed By: #### L 506.1001, L509.1000, L503.0106 #### [facility] [address] [place], [address] Glucose [Mass/Vol] 132 mg/dL High 70-99 [facility] Comment on above: Performed By: #### L 506.1001, L509.1000, L503.0106 #### [facility] [address] [place], [address] Potassium [Moles/Vol] 5.6 mmol/L High 3.3-5.1 [facility] Comment on above: Performed By: #### L 506.1001, L509.1000, L503.0106 #### [facility] [address] [place], [address] Sodium [Moles/Vol] 133 mmol/L Normal 133-145 [facility] Comment on above: Performed By: #### L 506.1001, L509.1000, L503.0106 #### [facility] [address] [place], [address] Urea nitrogen [Mass/Vol] 48 mg/dL High 4-19 [facility] Comment on above: Performed By: #### L 506.1001, L509.1000, L503.0106 #### [facility] [address] [place], [address] Basophil percentageOrdered B y: Jose J Catrachito on 06-28-2024 Basophils/100 WBC (Bld) 0.1 % 0-1 [facility] CBC W/Diff, Automatedon 06-08 Absolute Lymph 0.97 X10 3/uL Normal 0.83-4.51 [facility] Comment on above: Performed By: #### L 506.1001, L509.1000, L503.0106 #### [facility] [address] [place], [address] Absolute Neut 6.6 X10 3/uL Normal 2.0-7.7 [facility] Comment on above: Performed By: #### L 506.1001, L509.1000, L503.0106 #### [facility] [address] [place], [address] Basophils/100 WBC (Bld) 0.1 % Normal 0-1 [facility] Comment on above: Performed By: #### L 506.1001, L509.1000, L503.0106 #### [facility] [address] [place], [address] Eosinophils/100 WBC (Bld) 0.0 % Normal 0-5 [facility] Comment on above: Performed By: #### L 506.1001, L509.1000, L503.0106 #### [facility] [address] [place], [address] Erythrocyte distribution width (RBC) [Ratio] 13.6 % Normal 11.6-14.6 [facility] Comment on above: Performed By: #### L 506.1001, L509.1000, L503.0106 #### [facility] [address] [place], [address] Hematocrit (Bld) [Volume fraction] 36.7 % Low 40-54 [facility] Comment on above: Performed By: #### L 506.1001, L509.1000, L503.0106 #### [facility] [address] [place], [address] Hemoglobin (Bld) [Mass/Vol] 12.0 g/dL Low 13.0-16.5 [facility] Comment on above: Performed By: #### L 506.1001, L509.1000, L503.0106 #### [facility] [address] [place], [address] IG% 0.200 Normal 0.0-0.9 [facility] Comment on above: Result Comment: IG% - Immature Granulocytes (promyelocytes, myelocytes and metamyelocytes) > 1% indicates that a LEFT SHIFT is Present. Performed By: #### L 506.1001, L509.1000, L503.0106 #### [facility] [address] [place], [address] Lymphocytes/100 WBC (Bld) 11.9 % Low 19-41 [facility] Comment on above: Performed By: #### L 506.1001, L509.1000, L503.0106 #### [facility] [address] [place], [address] MCH (RBC) [Entitic mass] 30.5 pg Normal 27.0-32.0 [facility] Comment on above: Performed By: #### L 506.1001, L509.1000, L503.0106 #### [facility] [address] [place], [address] MCHC (RBC) [Mass/Vol] 32.7 g/dL Normal 32-36 [facility] Comment on above: Performed By: #### L 506.1001, L509.1000, L503.0106 #### [facility] [address] [place], [address] MCV (RBC) [Entitic vol] 93.4 fL Normal 80-94 [facility] Comment on above: Performed By: #### L 506.1001, L509.1000, L503.0106 #### [facility] [address] [place], [address] Monocytes/100 WBC (Bld) 7.0 % Normal 0-10 [facility] Comment on above: Performed By: #### L 506.1001, L509.1000, L503.0106 #### [facility] [address] [place], [address] Neutrophils/100 WBC (Bld) 80.8 % High 47-70 [facility] Comment on above: Performed By: #### L 506.1001, L509.1000, L503.0106 #### [facility] [address] [place], [address] Nucleated RBC (Bld) [#/Vol] 0 10*3/uL Normal 0-5 [facility] Comment on above: Performed By: #### L 506.1001, L509.1000, L503.0106 #### [facility] [address] [place], [address] Platelet mean volume (Bld) [Entitic vol] 9.1 fL Normal 6.2-12.0 [facility] Comment on above: Performed By: #### L 506.1001, L509.1000, L503.0106 #### [facility] [address] [place], [address] Platelets (Bld) [#/Vol] 175 10*3/uL Normal 150-450 [facility] Comment on above: Performed By: #### L 506.1001, L509.1000, L503.0106 #### [facility] [address] [place], [address] RBC (Bld) [#/Vol] 3.93 10*6/uL Low 4.6-6.2 [facility] Comment on above: Performed By: #### L 506.1001, L509.1000, L503.0106 #### [facility] [address] [place], [address] RDW SD 46.7 fl High 35.1-43.9 [facility] Comment on above: Performed By: #### L 506.1001, L509.1000, L503.0106 #### [facility] [address] [place], [address] WBC (Bld) [#/Vol] 8.1 10*3/uL Normal 4.4-11.0 [facility] Comment on above: Performed By: #### L 506.1001, L509.1000, L503.0106 #### [facility] [address] [place], [address] Carbon dioxide, total [Moles /volume] in Central venous bloodOrdered By: Jose J Mcclendon on 06-28-2024 CO2 [Moles/Vol] 20.1 mmol/L Low 21.0-32.0 [facility] Chloride assayOrdered By: Kelly Mcclendon on 06-28-2024 Chloride [Moles/Vol] 102 mmol/L 98-108 [facility] Eosinophil percentageOrdered By: Jose J Mcclendon on 06-28-2024 Eosinophils/100 WBC (Bld) 0.0 % 0-5 [facility] Erythrocyte distribution wid th ratioOrdered By: Jose J Mcclendon on 06-28-2024 Erythrocyte distribution width (RBC) [Ratio] 13.6 % 11.6-14.6 [facility] Erythrocyte distribution wid th standard deviationOrdered By: Jose J Mcclendon on 06-28-2024 Erythrocyte distribution width (RBC) [Ratio] 46.7 fl High 35.1-43.9 [facility] Glomerular filtration rate ( GFR) estimation/1.73 sq m using serum, plasma, or whole bOrdered By: Jose J Mcclendon on 06-28-2024 GFR/1.73 sq M.predicted among non-blacks MDRD (S/P/Bld) [Vol rate/Area] 22 mL/min/{1.73_m2} Low >60 [facility] Comment on above: mL/min/1.73m2 CKD-EP I Creatinine Equation (2020) Hematocrit Auto (Bld) [Volum e fraction]Ordered By: Jose J Mcclendon on 06-28-2024 Hematocrit (Bld) [Volume fraction] 36.7 % Low 40-54 [facility] Hemoglobin measurementOrdere d By: Jose J Mcclendon on 06-28-2024 Hemoglobin (Bld) [Mass/Vol] 12.0 g/dL Low 13.0-16.5 [facility] Immature granulocytes/100 WB C Auto (Bld)Ordered By: Jose J Mcclendon on 06-28-2024 Immature granulocytes/100 WBC (Bld) 0.200 % 0.0-0.9 [facility] Comment on above: IG% - Immature Granu locytes (promyelocytes, myelocytes and metamyelocytes) > 1% indicates that a LEFT SHIFT is Present. MCV (mean corpuscular volume ) determinationOrdered By: Jose J Mcclendon on 06-28-2024 MCV (RBC) [Entitic vol] 93.4 fL 80-94 [facility] Mean corpuscular hemoglobin (MCH) determinationOrdered By: Jose J Mcclendon on 06-28-2024 MCH (RBC) [Entitic mass] 30.5 pg 27.0-32.0 [facility] Mean corpuscular hemoglobin concentration (MCHC) determinationOrdered By: Jose J Mcclendon on 06-28-2024 MCHC (RBC) [Mass/Vol] 32.7 g/dL 32-36 [facility] Mean platelet volume determi nationOrdered By: Jose J Mcclendon on 06-28-2024 Platelet mean volume (Bld) [Entitic vol] 9.1 fL 6.2-12.0 [facility] Monocyte percentageOrdered B y: Jose J Mcclendon on 06-28-2024 Monocytes/100 WBC (Bld) 7.0 % 0-10 [facility] Neutrophil percentageOrdered By: Jose J Mcclendon on 06-28-2024 Neutrophils/100 WBC (Bld) 80.8 % High 47-70 [facility] Nucleated red blood cell per centageOrdered By: Jose J Mcclendon on 06-28-2024 Nucleated RBC/100 WBC (Bld) [Ratio] 0 % 0-5 [facility] Platelet countOrdered By: Kelly Mcclendon on 06-28-2024 Platelets (Bld) [#/Vol] 175 10*3/uL 150-450 [facility] Potassiumon 06-28-2024 Potassium [Moles/Vol] 5.0 mmol/L Normal 3.3-5.1 [facility] Comment on above: Performed By: #### L 501.5600 ####[facility] [address] [place], [address] Potassium measurement (mass/ volume)Ordered By: Jose J Mcclendon on 06-28-2024 Potassium (Unsp spec) [Mass/Vol] 5.0 mmol/L 3.3-5.1 [facility] RBC Auto (Bld) [#/Vol]Ordere d By: Jose J Mcclendon on 06-28-2024 RBC (Bld) [#/Vol] 3.93 10*6/uL Low 4.6-6.2 [facility] Serum creatinine measurement (mass/volume)Ordered By: Jose J Mcclendon on 06-28-2024 Creatinine [Mass/Vol] 2.95 mg/dL High 0.70-1.20 [facility] Serum glucose measurement (m ass/volume)Ordered By: Jose J Mcclendon on 06-28-2024 Glucose [Mass/Vol] 132 mg/dL High 70-99 [facility] Serum or plasma calcium jamel urement (mass/volume)Ordered By: Jose J Mcclendon on 06-28-2024 Calcium [Mass/Vol] 8.1 mg/dL 7.6-11.0 [facility] Serum or plasma urea nitroge n measurement (mass/volume)Ordered By: Jose J Mcclendon on 06-28-2024 Urea nitrogen [Mass/Vol] 48 mg/dL High 4-19 [facility] Sodium levelOrdered By: Jose J Mcclendon on 06-28-2024 Sodium [Moles/Vol] 133 mmol/L 133-145 [facility] White blood cell (WBC) count Ordered By: Jose J Mcclendon on 06-28-2024 WBC (Bld) [#/Vol] 8.1 10*3/uL 4.4-11.0 [facility] Discharge Instructionon 06-[address] [facility] Medical Records Department [address] [place] [address] Instructions for Home/Discharge Instructions 06/27/24 0714 MR#: [id number] Acct: [id number] Name: ABELARDO IVORY Rep #: [id number] : 1950 74 From: Jose J Mcclendon MD PCP: Dr. Padmini Carrasco MD Status:REG [facility] Discharge Instructions Diet Discharge Diet: No restrictions DC O2, CPAP, BIPAP needs Home O2 Discharge instructions: No Dressing / Incision Discharge Activity: Return to Normal Activity and May Not Drive (while taking narcotic pain medications.) Dressing / Incision Call your doctor if you observe: Fever of 101 or Higher Follow Up Care Please Follow Up With: Jose J Mcclendon MD When: Call [phone] for an appointment Test Results: Test results from this visit will be discussed in further detail at your follow-up appointment, if applicable. Discharge Plan Admission Primary Reason for Your Visit: Resection of bladder tumor Attending Provider: Jose J Mcclendon Primary Care Provider: Padmini Carrasco Instructions Print Language: Serbian Discharge Orders/Prescriptions Prescriptions: New ibuprofen 600 mg [...] CC: Dr. Padmini Carrasco MD Signed Normal [facility] Immunohistochemical Stainson 06-27-2024 Immunohistochemical Stains Patient Age/Sex Location Account Attending Physician ABELARDO IVORY 74/M MS3 [id number] Dr. Jose J Mcclendon MD Specimen: [id number] Received: 06/27/24 Status: EZEQUIEL Rodriguezashley Num: [id number] Spec Type: BLADDER BX Subm Dr: Dr. [...] consultation by Dr Mao Brennan ([facility] pathology division, [facility]). MICROSCOPIC DESCRIPTION Slides are reviewed. All matched controls reacted appropriately. These tests were developed and their performance characteristics determined by [facility]. They may not have been [...] specimen is submitted in toto in A1-3. [facility] 06-27-2024 CPT:11572,[id number],06034 Patient Age/Sex Location Account Attending Physician ABELARDO IVORY 74/M MS3 [id number] Dr. Jose J Mcclendon MD ADDENDUM Addendum 1 Entered: 07/31/24-4866 This addendum is added to incorporate an outside pathology consultation report. The case was examined at [place] by Dr. Beltran (#[id number]) and the following diagnosis was rendered. A. Urinary bladder, transurethral resection: Invasive urothelial carcinoma, high-grade, involving muscularis propria. Please see complete above mentioned consultation report in EMR Addendum Signed (signature on file) Dr. Muriel Batista MD 07/31/24 1550 Patient Age/Sex Location Account Attending Physician ABELARDO IVORY 74/M MS3 [id number] Dr. Jose J Mcclendon MD Signed (signature on file) Dr. uMriel Batista MD 06/29/24 1547 Normal [facility] Comment on above: Performed By: #### L 506.1001, L509.1000, L503.0106 #### [facility] [address] [place], [address] MR/POSTOP.Layla 06-27-2024 MR/POSTOP.[facility] Medical Records Department [address] [place] [address] Anesthesia Postop Eval I 06/27/24 0934 MR#: [id number] Acct: [id number] Name: ABELARDO IVORY Rep #: [id number] : 1950 74 From: Jose Luis Man CRNA PCP: Dr. Padmini Carrasco MD Status:REG SDC Y Race: C Location: [place] [address] Anesthesia: Postop Eval I Current Vital Signs Temperature: 97.3 F Pulse Rate: 60 Blood Pressure: 186/72 Respiratory Rate: 16 Pulse Ox: 98 Assessment Airway patent: Yes Spontaneous unlabored respirations: Yes nausea: No Vomiting: No Anesthesia Complication: No Fluid Hydration Crystalloid volume administer (ml): 500 Total IV fluid infused: 500 Progress Note Anesthesia document: Postop Eval 1 completed: Yes 06/27/2435 Date Jose Luis Man DOCK ASSOCIATE Cosigner Signature: Date CC: Signed Normal [facility] MR/[id number] 06-27-2024 MR/POSTOPAN2 [facility] Medical Records Department [address] [place] [address] Anesthesia Postop Eval II 06/27/24 1136 MR#: [id number] Acct: [id number] Name: ABELARDO IVORY Rep #: [id number] : 1950 74 From: Jose Cisneros MD PCP: Dr. Padmini Carrasco MD Status:REG SDC Y Race: C Location: [place] [address] Anesthesia Postop Eval I Sum Postop Eval Completion status Anesthesia document: Postop Eval 1 completed: Yes Anesthesia Postop Eval I Summary Anesthesia Postop Eval I Summary: Anesthesia Postop Eval I: Assessment Summary Airway patent Yes 06/27/24 09:34 DOCK ASSOCIATE.TNES Spontaneous unlabored Yes 06/27/24 09:34 DOCK ASSOCIATE.TNES respirations Mental status nausea No 06/27/24 09:34 DOCK ASSOCIATE.TNES Vomiting No 06/27/24 09:34 DOCK ASSOCIATE.TNES Anesthesia Postop Eval I: Fluid Summary Crystalloid volume administer 500 06/27/24 09:34 DOCK ASSOCIATE.TNES (ml) Colloids volume administered ( ml) Blood Product volume administered (ml) Total IV fluid infused 500 06/27/24 09:34 DOCK ASSOCIATE.TNES Anesthesia Postop Eval I: Summary Notes Anesthesia Complication No 06/27/24 09:34 DOCK ASSOCIATE.TNES Anesthesia Complication Comment: Post-operative progress note Anesthesia: Postop Eval II Evaluation Mental status: Awake Pain Level: 4 nausea: No Vomiting: No 06/27/24 1137 Date Jose Jackson Signature: Date CC: Signed Normal [facility] Operative Reporton Operative Report [facility] Medical Records Department [address] [place] [address] Operative Report 06/27/24 0918 MR#: [id number] Acct: [id number] Name: ABELARDO IVORY Rep #: [id number] : 1950 74 From: Jose J Mcclendon MD PCP: Dr. Padmini Carrasco MD Status:[facility] Location: [place] [address] Operative Report (Standard) Operative Information Date of Procedure: 06/27/24 Pre-Operative Diagnosis: Large bladder mass Post-Operative Diagnosis: The same Surgery/Procedure Performed: Transurethral resection of the large bladder mass appears invasive aircraft refueller: No Type of Anesthesia: General RN Documented Start/Stop Times: Operation Date: 06/27/24 08:45 Case Time Into Pre-Op 06/27/24 06:33 Out of Pre-Op 06/27/24 08:46 Anesthesia Start 06/27/24 08:47 Into Room 06/27/24 08:47 Procedure Start 06/27/24 08:59 Procedure End 06/27/24 09:18 Procedure Start Time: 08:59 Procedure Stop Time: 09:18 Select all DRAINS/GRAFTS/IMPLANTS that apply: Drains (18 Palestinian Alaniz catheter) Drain details: alaniz Estimated Blood [...] the meatus with sounds starting at 18 Palestinian up to 26 Palestinian I was unable to easily go into the urethra with a 24 Palestinian noncontinuous flow Olympus bipolar resectoscope with upon [...] MD; Dr. Jose J Mcclendon MD Signed [facility] MR/PAT.JAVIon 06-25-2024 MR/PAT.[facility] Medical Records Department [address] [place] [address] PAT - Anesthesia 06/25/24 1014 MR#: [id number] Acct: [id number] Name: ABELARDO IVORY Rep #: [id number] : 1950 74 From: Jose Cisneros MD PCP: Dr. Padmini Carrasco MD Status:PRE [facility] Y Race: C Location: [facility] Pre-Assessment Diagnosis/Proposed Procedure Planned Operative Procedure(s): Cysto,Transurethal Resec Bladder,Olympus Anesthesia History Anesthesia History - product safety lead: Anesthesia History - product safety lead Hx Hospitalization No 06/13/24 10:26 Any Problems [...] take am of surgery PONV PONV - product safety lead: PONV - product safety lead Female No 06/13/24 10:26 HX of Motion [...] 05/16/24 22:09 Respiratory Assessment Respiratory Assessment - product safety lead: Respiratory Tract Infection Hx - product safety lead Hx Respiratory Tract Infection No 06/13/24 10:26 STOP Sleep Apnea STOP Sleep Apnea - product safety lead: STOP Sleep Apnea - product safety lead Hx Hypertension Yes: CONTROLLED ON MED 06/13/24 [...] Tobacco Use History Tobacco Use History - product safety lead: Tobacco Use History - product safety lead Tobacco Use Smoking Status Current every day smoker 06/13/24 10:26 Hx Tobacco Use Yes 06/13/24 10:26 Years Smoking Packs Smoked per Day Smoking Cessation Date was within the last 15 years Hx Smoking Cessation Date Hx Smoking Cessation Counseling Hematologic Medial History Hematologic Hx - product safety lead: Hematologic 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 Hx of Blood Transfusion No 06/13/24 10:26 [...] confused, unrespo /Reproduction History /Reproductive History - product safety lead: /Reproductive Hx- product safety lead Hx Now Gestational Age (in weeks): EDC: Hx Hx Para Hx Section SAB PFSH Medical History Wears dentures Wears glasses Bruising Easy bruising High cholesterol Smoker Shortness of breath on exertion History of echocardiogram Cardiology follow-up encounter Stage 3b chronic kidney disease (CKD) Thrombocytopenia Chronic kidney insufficiency Pleural effusion Secondary pulmonary arterial hypertension Atherosclerotic heart disease of [place] coronary artery without angina pectoris Intention tremor [...] 01/12/24 History (more content not included)... Normal [facility] Urine Cultureon 06-22-2024 URC Culture exhibits no growth. Normal [facility] Comment on above: Performed By: #### L 506.1001, L509.1000, L503.0106 #### [facility] [address] [place], [address] Abdomen/Pelvis WITH Contrast on 06-21-2024 Abdomen/Pelvis WITH Contrast [facility] Imaging Services [address] [place] [address] Abdomen/Pelvis WITH Contrast MR#: [id number] Acct: [id number] Name: ABELARDO IVORY Rep #: [id number] : 1950 M 74 From: Lebron mak MD PCP: Dr. Padmini Carrasco MD Status: REG CLI Study: Abdomen/Pelvis WITH Contrast Date of Exam: Exam# [id number] Ordering Dr: Jose J Mcclendon MD PROCEDURE: [...] Calcified hepatic and splenic granulomas. Reading Location: [id number] CC: Dr. Padmini Carrasco MD; Dr. Jose J Mcclendon MD Associate Sales: Signed Normal [facility] CREATININE FINGERSTICKon Creatinine [Mass/Vol] 1.8 mg/dL High 0.70-1.30 [facility] Comment on above: Performed By: #### L 9100.0200 ####[facility] [id number] [facility]. [place], [place], [id number] GFR/1.73 sq M.predicted among non-blacks MDRD (S/P/Bld) [Vol rate/Area] 39.0000 mL/min/{1.73_m2} Low >60 [facility] Comment on above: Performed By: #### L 9100.0200 ####[facility] [id number] [facility]. [place], [place], [id number] Creatinine measurement at dsideOrdered By: Jose J Mcclendon on 06-21-2024 Creatinine [Mass/Vol] 1.8 mg/dL High 0.70-1.30 [facility] EGFROrdered By: Jose J Mcclendon on 06-21-2024 GFR/1.73 sq M.predicted among non-blacks MDRD (S/P/Bld) [Vol rate/Area] 39.0000 mL/min/{1.73_m2} Low >60 [facility] Urine cultureOrdered By: Casimiro Mcclendon on 06-21-2024 Bacteria identified Cx Nom (U) Culture exhibits no growth. [facility] 12 Lead [place] [facility] [place]-19-2024 12 Lead EKG performed by [facility] [address] [place] [address] 12 Lead EKG [place] [facility] [place] 06/19/2414 MR#: [id number] Acct: [id number] Name: ABELARDO IVORY Rep #: [id number] : 1950 74 From: Nito ACUNA Attending Dr: KALPANA Awad Status: PRE AM B Ordering Dr: Nito Rosales Date: 06/19/24 [place] [facility] [place]: M C [place] [facility] [place]12 Lead E[place] [facility] [place] ECG Report Interpretation ---Sinus Bradycardia WITHIN NORMAL LIMITSElectronically signed on 06/19/2024 at 08:20 by Raheem [employer] Version [id number] 06/19/24 0821 Date Nito ACUNA CC: Dr. Padmini Carrasco MD Date Dictated: 06/19/24613 Date Transcribed: 06/19/24613 Associate Sales: FREDDIE Signed Normal [facility] 12 lead electrocardiography reportOrdered By: Nito Rosales on 06-19-2024 EKG study [facility] [address] [place] [address] 12 Lead EKG [place] [facility] [place] 06/19/2414 MR#: [id number] Acct: [id number] Name: ABELARDO IVORY Rep #:[id number] : 1950 74 From: Nito ACUNA Attending Dr: KALPANA Awad St atus: PRE AMB Ordering Dr: Nito Rosales Date: 06/19/24 [place] [facility] [place] Sex: M C Admitted: [facility]/12 Lead EKG performed [place] [facility] [place] ECG Report Interpretation ---Sinus Bradycardia WITHIN NORMAL LIMITSElectronically signed on 06/19/2024 at 08:20 by Raheem [employer] Version [id number] 06/19/24 0821 Date _ Nito ACUNA CC: Dr. Padmini Carrasco MD ~ Date Dictated: 06/19/24613 Date Transcribed: 06/19/24613 Associate Sales: FREDDIE [employer] Work Phone: Cardiology Visit Reporton Cardiology Visit Report [facility] [place] [address] OFFICE VISIT Date of Service: 06/19/24 MR#: [id number] Acct: [id number] Name: ABELARDO IVORY Rep #: [id number] : 1950 Provider: KALPANA Awad Age/Sex: 74/M [place] [facility] Status: Signed HPI HPI History of Present [...] the RCA and patient was referred to [facility] for aortic valve and RCA revascularization. Patient underwent AVR plus CABG x 1 (Perimount #23, SVG to RCA at [place] on 02/12/2019). Patient did well postoperatively with echocardiogram demonstrating preserved ejection fraction, normally functioning prosthetic aortic valve with peak gradient 25 mmHg and mean gradient of 13 mmHg. Patient was diagnosed with an abdominal aortic aneurysm and was sent to [place] for an opinion. It was noted to [...] of aneurysm leak. Patient was transferred to [facility] and on 12/28/2021 patient proceeded with thoracoretroperitoneal [...] Intake Visit Reasons: SURGERY CLEARANCE (DR. MCCLENDON) Employment Specialist Required: No Is patient in pain?: No [...] surgery scheduled for june 27with Dr. Desouza [facility] Medical History Wears dentures Wears glasses Bruising Easy bruising High cholesterol Smoker Shortness of breath on exertion History of echocardiogram Cardiology follow-up encounter Stage 3b chronic kidney disease (CKD) Thrombocytopenia Chronic kidney insufficiency Pleural effusion Secondary pulmonary arterial hypertension Atherosclerotic heart disease of [place] coronary artery without angina pectoris Intention tremor Carotid stenosis, bilateral Hyperlipidemia Nonrheumatic aortic (valve) stenosis Essential hypertension Tobacco dependence Bilateral inguinal hernia Left carotid bruit Abdominal aortic aneurysm (AAA) Anemia Subcutaneous mass of back PUD (peptic ulcer disease) Cough Arthritis Surgical History Hx of inguinal hernia repair S/P inguinal h (more content not included)... Normal [facility] MR/PAT.ANEon 06-13-2024 MR/PAT.[facility] Medical Records Department [address] [place] [address] PAT - Anesthesia 06/13/24 1208 MR#: [id number] Acct: [id number] Name: ABELARDO IVORY Rep #: [id number] : 1950 74 From: Edgar Khan MD PCP: Dr. Padmini Carrasco MD Status:PRE [facility] Y Race: C Location: [facility] Pre-Assessment Diagnosis/Proposed Procedure Planned Operative Procedure(s): Cysto,Transurethal Resec Bladder,Olympus Anesthesia History Anesthesia History - product safety lead: Anesthesia History - product safety lead Hx Hospitalization No 06/13/24 10:26 Any Problems [...] take am of surgery PONV PONV - product safety lead: PONV - product safety lead Female No 06/13/24 10:26 HX of Motion [...] 05/16/24 22:09 Respiratory Assessment Respiratory Assessment - product safety lead: Respiratory Tract Infection Hx - product safety lead Hx Respiratory Tract Infection No 06/13/24 10:26 STOP Sleep Apnea STOP Sleep Apnea - product safety lead: STOP Sleep Apnea - product safety lead Hx Hypertension Yes: CONTROLLED ON MED 06/13/24 [...] Tobacco Use History Tobacco Use History - product safety lead: Tobacco Use History - product safety lead Tobacco Use Smoking Status Current every day smoker 06/13/24 10:26 Hx Tobacco Use Yes 06/13/24 10:26 Years Smoking Packs Smoked per Day Smoking Cessation Date was within the last 15 years Hx Smoking Cessation Date Hx Smoking Cessation Counseling Hematologic Medial History Hematologic Hx - product safety lead: Hematologic 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 Hx of Blood Transfusion No 06/13/24 10:26 [...] confused, unrespo /Reproduction History /Reproductive History - product safety lead: /Reproductive Hx- product safety lead Hx Now Gestational Age (in weeks): EDC: Hx Hx Para Hx Section SAB [facility] Medical History (Updated 05/25/24 @ 00:01 by Background Jayesh) Wears dentures Wears glasses Bruising Easy bruising High cholesterol Smoker Shortness of breath on exertion History of echocardiogram Cardiology follow-up encounter Stage 3b chronic kidney disease (CKD) Thrombocytopenia Chronic kidney insufficiency Pleural effusion Secondary pulmonary arterial hypertension Atherosclerotic heart disease of [place] coronary artery without angina pectoris Intention tremor [...] 01/12/24 History (more content not included)... Normal [facility] Cytology report of Body flui d Cyto stainOrdered By: Jose J Mcclendon on 05-28-2024 Cytology report Cyto stain Doc (Body fld) SEE PATHOLOGY REPORT [facility] Comment on above: Specimen submitted t o Anatomical Pathology Department for testing. Cytology, Body Fluid / CSFon 05-28-2024 CYTOLOGY,BF/CSF SEE PATHOLOGY REPORT Normal [facility] Comment on above: Order Comment: URINE Result Comment: Spec imen submitted to Anatomical Pathology Department for testing. Performed By: #### L 350.1000 ####[facility] [address] [place], [address] Pap Stain (control)on 2024 Pap Stain (control) --- Patient Age/Sex Location Account Attending Physician ABELARDO IVORY 74/M LABSPEC [id number] Dr. Jose J Mcclendon MD Specimen: [id number] Received: 05/28/24 Status: EZEQUIEL Mack Num: [id number] Spec Type: CYSPIN FL Subm Dr: Dr. [...] Submitted for cytology preparation. Mr 05/29/2024 CPT: 67365 Signed (signature on file) Dr. Sun Kunz DO 05/29/24 1054 Normal [facility] Comment on above: Performed By: #### L 506.1001, L509.1000, L503.0106 #### [facility] [address] [place], [address] Urine Cultureon 05-18-2024 URC Below infection leve l. 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 Medical Records Department [address] [place] [address] Emergency Department Summary 05/17/24 MR#: [id number] Acct: [id number] Name: ABELARDO IVORY Rep #: [id number] : 1950 74 From: Jeffery Turpin DO [...] and therefore he comes in for evaluation. [facility] Medical History Wears dentures Wears glasses Bruising Easy bruising High cholesterol Smoker Shortness of breath on exertion History of echocardiogram Cardiology follow-up encounter Stage 3b chronic kidney disease (CKD) Thrombocytopenia Chronic kidney insufficiency Pleural effusion Secondary pulmonary arterial hypertension Atherosclerotic heart disease of [place] coronary artery without angina pectoris Intention tremor [...] 19 H (more content not included)... Normal [facility] Abdomen/Pelvis without Conto n 05-16-2024 Abdomen/Pelvis without Cont [facility] Imaging Services [address] [place] [address] Abdomen/Pelvis without Cont MR#: [id number] Acct: [id number] Name: ABELARDO IVORY Rep #: [id number] : 1950 M 74 From: Jaden fox MD PCP: Dr. Padmini Carrasco MD Status: REG ER Study: Abdomen/Pelvis without Cont Date of Exam: 11/01 Exam# [id number] Ordering Dr: Jeffery Turpni DO PROCEDURE: ABDOMEN/PELVIS WITHOUT CONT 05/16/2024 REASON [...] Dr. Padmini Carrasco MD; Jeffery Turpin DO Associate Sales: Signed Normal [facility] Absolute lymphocyte countOrd ered By: Jeffery Turpin on 05-16-2024 Lymphocytes Auto (Unsp spec) [#/Vol] 1.76 10*3/uL 0.83-4.51 [facility] Absolute neutrophil countOrd ered By: Jeffery Turpin on 05-16-2024 Neutrophils (Bld) [#/Vol] 4.7 10*3/uL 2.0-7.7 [facility] Anion gap in Serum or Plasma Ordered By: Jeffery Turpin on 05-16-2024 Anion gap [Moles/Vol] 14 mmol/L 5-15 [facility] Automated lymphocyte count a s percentage of total leukocytesOrdered By: Jeffery Turpin on 05-16-2024 Lymphocytes/100 WBC Auto (Unsp spec) 24.2 % 19-41 [facility] BUN/creatinine ratioOrdered By: Jeffery Turpin on 05-16-2024 Urea nitrogen/Creatinine [Mass ratio] 20.9 mg/mg High 10-20 [facility] Basic Metabolic Profile (BMP )on 05-16-2024 BUN/CRE 20.9 RATIO High 10-20 [facility] Comment on above: Performed By: #### L 506.1001, L509.1000, L503.0106 #### [facility] [address] [place], [address] Calcium [Mass/Vol] 9.1 mg/dL Normal 7.6-11.0 [facility] Comment on above: Performed By: #### L 506.1001, L509.1000, L503.0106 #### [facility] [address] [place], [address] Chloride [Moles/Vol] 102 mmol/L Normal 98-108 [facility] Comment on above: Performed By: #### L 506.1001, L509.1000, L503.0106 #### [facility] [address] [place], [address] CO2 [Moles/Vol] 20.7 mmol/L Low 21.0-32.0 [facility] Comment on above: Performed By: #### L 506.1001, L509.1000, L503.0106 #### [facility] [address] [place], [address] Creatinine [Mass/Vol] 1.47 mg/dL High 0.70-1.20 [facility] Comment on above: Performed By: #### L 506.1001, L509.1000, L503.0106 #### [facility] [address] [place], [address] ECRCL 39.78 ml/min Low 50-250 [facility] Comment on above: Performed By: #### L 506.1001, L509.1000, L503.0106 #### [facility] [address] [place], [address] GAP 14 Normal 5-15 [facility] Comment on above: Performed By: #### L 506.1001, L509.1000, L503.0106 #### [facility] [address] [place], [address] GFR/1.73 sq M.predicted among non-blacks MDRD (S/P/Bld) [Vol rate/Area] 50 mL/min/{1.73_m2} Low >60 [facility] Comment on above: Result Comment: mL/m in/1.73m2 CKD-EPI Creatinine Equation (2020) Performed By: #### L 506.1001, L509.1000, L503.0106 #### [facility] [address] [place], [address] Glucose [Mass/Vol] 145 mg/dL High 70-99 [facility] Comment on above: Performed By: #### L 506.1001, L509.1000, L503.0106 #### [facility] [address] [place], [address] Potassium [Moles/Vol] 4.5 mmol/L Normal 3.3-5.1 [facility] Comment on above: Performed By: #### L 506.1001, L509.1000, L503.0106 #### [facility] [address] [place], [address] Sodium [Moles/Vol] 136 mmol/L Normal 133-145 [facility] Comment on above: Performed By: #### L 506.1001, L509.1000, L503.0106 #### [facility] [address] [place], [address] Urea nitrogen [Mass/Vol] 31 mg/dL High 4-19 [facility] Comment on above: Performed By: #### L 506.1001, L509.1000, L503.0106 #### [facility] [address] [place], [address] Basophil percentageOrdered B y: Jeffery Turpin on 05-16-2024 Basophils/100 WBC (Bld) 0.6 % 0-1 [facility] Bilirubin Test strip Ql (U)O rdered By: Jeffery Turpin on 05-16-2024 Bilirubin Ql (U) Negative Negative [facility] CBC W/Diff, Automatedon 04-0 Absolute Lymph 1.76 X10 3/uL Normal 0.83-4.51 [facility] Comment on above: Performed By: #### L 506.1001, L509.1000, L503.0106 #### [facility] [address] [place], [address] Absolute Neut 4.7 X10 3/uL Normal 2.0-7.7 [facility] Comment on above: Performed By: #### L 506.1001, L509.1000, L503.0106 #### [facility] [address] [place], [address] Basophils/100 WBC (Bld) 0.6 % Normal 0-1 [facility] Comment on above: Performed By: #### L 506.1001, L509.1000, L503.0106 #### [facility] [address] [place], [address] Eosinophils/100 WBC (Bld) 2.2 % Normal 0-5 [facility] Comment on above: Performed By: #### L 506.1001, L509.1000, L503.0106 #### [facility] [address] [place], [address] Erythrocyte distribution width (RBC) [Ratio] 12.8 % Normal 11.6-14.6 [facility] Comment on above: Performed By: #### L 506.1001, L509.1000, L503.0106 #### [facility] [address] [place], [address] Hematocrit (Bld) [Volume fraction] 42.7 % Normal 40-54 [facility] Comment on above: Performed By: #### L 506.1001, L509.1000, L503.0106 #### [facility] [address] [place], [address] Hemoglobin (Bld) [Mass/Vol] 14.1 g/dL Normal 13.0-16.5 [facility] Comment on above: Performed By: #### L 506.1001, L509.1000, L503.0106 #### [facility] [address] [place], [address] IG% 0.300 Normal 0.0-0.9 [facility] Comment on above: Result Comment: IG% - Immature Granulocytes (promyelocytes, myelocytes and metamyelocytes) > 1% indicates that a LEFT SHIFT is Present. Performed By: #### L 506.1001, L509.1000, L503.0106 #### [facility] [address] [place], [address] Lymphocytes/100 WBC (Bld) 24.2 % Normal 19-41 [facility] Comment on above: Performed By: #### L 506.1001, L509.1000, L503.0106 #### [facility] [address] [place], [address] MCH (RBC) [Entitic mass] 30.4 pg Normal 27.0-32.0 [facility] Comment on above: Performed By: #### L 506.1001, L509.1000, L503.0106 #### [facility] [address] [place], [address] MCHC (RBC) [Mass/Vol] 33.0 g/dL Normal 32-36 [facility] Comment on above: Performed By: #### L 506.1001, L509.1000, L503.0106 #### [facility] [address] [place], [address] MCV (RBC) [Entitic vol] 92.0 fL Normal 80-94 [facility] Comment on above: Performed By: #### L 506.1001, L509.1000, L503.0106 #### [facility] [address] [place], [address] Monocytes/100 WBC (Bld) 8.1 % Normal 0-10 [facility] Comment on above: Performed By: #### L 506.1001, L509.1000, L503.0106 #### [facility] [address] [place], [address] Neutrophils/100 WBC (Bld) 64.6 % Normal 47-70 [facility] Comment on above: Performed By: #### L 506.1001, L509.1000, L503.0106 #### [facility] [address] [place], [address] Nucleated RBC (Bld) [#/Vol] 0 10*3/uL Normal 0-5 [facility] Comment on above: Performed By: #### L 506.1001, L509.1000, L503.0106 #### [facility] [address] [place], [address] Platelet mean volume (Bld) [Entitic vol] 8.5 fL Normal 6.2-12.0 [facility] Comment on above: Performed By: #### L 506.1001, L509.1000, L503.0106 #### [facility] [address] [place], [address] Platelets (Bld) [#/Vol] 151 10*3/uL Normal 150-450 [facility] Comment on above: Performed By: #### L 506.1001, L509.1000, L503.0106 #### [facility] [address] [place], [address] RBC (Bld) [#/Vol] 4.64 10*6/uL Normal 4.6-6.2 [facility] Comment on above: Performed By: #### L 506.1001, L509.1000, L503.0106 #### [facility] [address] [place], [address] RDW SD 43.4 fl Normal 35.1-43.9 [facility] Comment on above: Performed By: #### L 506.1001, L509.1000, L503.0106 #### [facility] [address] [place], [address] WBC (Bld) [#/Vol] 7.3 10*3/uL Normal 4.4-11.0 [facility] Comment on above: Performed By: #### L 506.1001, L509.1000, L503.0106 #### [facility] [address] [place], [address] Carbon dioxide, total [Moles /volume] in Central venous bloodOrdered By: Jeffery Turpin on 05-16-2024 CO2 [Moles/Vol] 20.7 mmol/L Low 21.0-32.0 [facility] Chloride assayOrdered By: Kelly Turpin on 05-16-2024 Chloride [Moles/Vol] 102 mmol/L 98-108 [facility] Eosinophil percentageOrdered By: Jeffery Turpin on 05-16-2024 Eosinophils/100 WBC (Bld) 2.2 % 0-5 [facility] Epithelial cells.squamous LM Ql (Urine sed)Ordered By: Jeffery Turpin on 05-16-2024 Epithelial cells.squamous LM.HPF (Urine sed) [#/Area] 0 /[HPF] 0-5 [facility] Erythrocyte distribution wid th (RBC) [Ratio]Ordered By: Jeffery Turpin on 05-16-2024 Erythrocyte distribution width (RBC) [Entitic vol] 43.4 fL 35.1-43.9 [facility] Erythrocyte distribution wid th ratioOrdered By: Jeffery Turpin on 05-16-2024 Erythrocyte distribution width (RBC) [Ratio] 12.8 % 11.6-14.6 [facility] Erythrocyte distribution wid th standard deviationOrdered By: Jeffery Turpin on 05-16-2024 Erythrocyte distribution width (RBC) [Ratio] 43.4 fl 35.1-43.9 [facility] Estimation of creatinine brandan aranceOrdered By: Jeffery Turpin on 05-16-2024 Estimated Creatinine Clearance Calc 39.78 ml/min Low 50-250 [facility] GFR/1.73 sq M.predicted kasie g non-blacks MDRD (S/P/Bld) [Vol rate/Area]Ordered By: Jeffery Turpin on 05-16-2024 Estimated GFR (MDRD) Non-Af Amer 50 Low >60 [facility] Comment on above: mL/min/1.73m2 CKD-EP I Creatinine Equation (2020) Glomerular filtration rate ( GFR) estimation/1.73 sq m using serum, plasma, or whole bOrdered By: Jeffery Turpin on 05-16-2024 GFR/1.73 sq M.predicted among non-blacks MDRD (S/P/Bld) [Vol rate/Area] 50 mL/min/{1.73_m2} Low >60 [facility] Comment on above: mL/min/1.73m2 CKD-EP I Creatinine Equation (2020) Glucose Ql (U)Ordered By: Kelly Turpin on 05-16-2024 Urine Glucose (UA) Normal mg/dl Normal [facility] Hematocrit Auto (Bld) [Volum e fraction]Ordered By: Jeffery Turpin on 05-16-2024 Hematocrit (Bld) [Volume fraction] 42.7 % 40-54 [facility] Hemoglobin measurementOrdere d By: Jeffery Turpin on 05-16-2024 Hemoglobin (Bld) [Mass/Vol] 14.1 g/dL 13.0-16.5 [facility] Immature granulocytes/100 WB C Auto (Bld)Ordered By: Jeffery Turpin on 05-16-2024 Immature granulocytes/100 WBC (Bld) 0.300 % 0.0-0.9 [facility] Comment on above: IG% - Immature Granu locytes (promyelocytes, myelocytes and metamyelocytes) > 1% indicates that a LEFT SHIFT is Present. Ketones Test strip Ql (U)Ord ered By: Jeffery Turpin on 05-16-2024 Ketones Ql (U) Negative Negative [facility] Lymphocytes Auto (Unsp spec) [#/Vol]Ordered By: Jeffery Turpin on 05-16-2024 Lymphocytes (Bld) [#/Vol] 1.76 10*3/uL 0.83-4.51 [facility] Lymphocytes/100 WBC Auto (Un sp spec)Ordered By: Jeffery Turpin on 05-16-2024 Lymphocytes/100 WBC (Bld) 24.2 % 19-41 [facility] MCV (mean corpuscular volume ) determinationOrdered By: Jeffery Turpin on 05-16-2024 MCV (RBC) [Entitic vol] 92.0 fL 80-94 [facility] Mean corpuscular hemoglobin (MCH) determinationOrdered By: Jeffery Turpin on 05-16-2024 MCH (RBC) [Entitic mass] 30.4 pg 27.0-32.0 [facility] Mean corpuscular hemoglobin concentration (MCHC) determinationOrdered By: Jeffery Turpin on 05-16-2024 MCHC (RBC) [Mass/Vol] 33.0 g/dL 32-36 [facility] Mean platelet volume determi nationOrdered By: Jeffery Turpin on 05-16-2024 Platelet mean volume (Bld) [Entitic vol] 8.5 fL 6.2-12.0 [facility] Microscopic analysis of urin e for red blood cells (RBC)Ordered By: Jeffery Turpin on 05-16-2024 Microscopic analysis of urine for red blood cells (RBC) > 100 SEEN /hpf 0- [facility] Comment on above: Microscopic field is filled. Other elements may be obscured. Urine RBC > 100 SEEN /hpf 0- [facility] Comment on above: Microscopic field is filled. Other elements may be obscured. Monocyte percentageOrdered B y: Jeffery Turpin on 05-16-2024 Monocytes/100 WBC (Bld) 8.1 % 0-10 [facility] Mucus LM Ql (Urine sed)Order ed By: Jeffery Turpin on 05-16-2024 Mucus Ql (Urine sed) 0 SEEN /hpf [facility] Neutrophil percentageOrdered By: Jeffery Turpin on 05-16-2024 Neutrophils/100 WBC (Bld) 64.6 % 47-70 [facility] Nitrite Test strip Ql (U)Ord ered By: Jeffery Turpin on 05-16-2024 Nitrite Ql (U) Positive High Negative [facility] Nucleated red blood cell per centageOrdered By: Jeffery Turpin on 05-16-2024 Nucleated RBC/100 WBC (Bld) [Ratio] 0 % 0-5 [facility] Platelet countOrdered By: Kelly Turpin on 05-16-2024 Platelets (Bld) [#/Vol] 151 10*3/uL 150-450 [facility] Potassium (Unsp spec) [Mass/ Vol]Ordered By: Jeffery Turpin on 05-16-2024 Potassium [Moles/Vol] 4.5 mmol/L 3.3-5.1 [facility] Potassium measurement (mass/ volume)Ordered By: Jeffery Turpin on 05-16-2024 Potassium (Unsp spec) [Mass/Vol] 4.5 mmol/L 3.3-5.1 [facility] Protein Test strip Ql (U)Ord ered By: Jeffery Turpin on 05-16-2024 Protein Ql (U) 100 mg/dl High Negative [facility] RBC Auto (Bld) [#/Vol]Ordere d By: Jeffery Turpin on 05-16-2024 RBC (Bld) [#/Vol] 4.64 10*6/uL 4.6-6.2 [facility] RBC casts LM Ql (Urine sed)O rdered By: Jeffery Turpin on 05-16-2024 Urine Red Blood Cell Casts 0-5 SEEN /lpf None Seen [facility] Serum creatinine measurement (mass/volume)Ordered By: Jeffery Turpin on 05-16-2024 Creatinine [Mass/Vol] 1.47 mg/dL High 0.70-1.20 [facility] Serum glucose measurement (m ass/volume)Ordered By: Jeffery Turpin on 05-16-2024 Glucose [Mass/Vol] 145 mg/dL High 70-99 [facility] Serum or plasma calcium jamel urement (mass/volume)Ordered By: Jeffery Turpin on 05-16-2024 Calcium [Mass/Vol] 9.1 mg/dL 7.6-11.0 [facility] Serum or plasma urea nitroge n measurement (mass/volume)Ordered By: Jeffery Turpin on 05-16-2024 Urea nitrogen [Mass/Vol] 31 mg/dL High 4-19 [facility] Sodium levelOrdered By: Domo Turpin on 05-16-2024 Sodium [Moles/Vol] 136 mmol/L 133-145 [facility] Squamous epithelial cells de tection in urine sediment by light microscopyOrdered By: Jeffery Turpin on 05-16-2024 Epithelial cells.squamous LM Ql (Urine sed) 0-5 SEEN /hpf 0-5 [facility] Urinalysis, Completeon 05-16 BACTERIA 1+ /hpf Normal None Seen [facility] Comment on above: Order Comment: COLOR OF URINE MAY AFFECT DIPSTICK RESULTS.CLEAN CATCH Performed By: #### L 400.0001 ####[facility] [address] [facility] [address] CAST,RBC 0-5 SEEN Normal None Seen [facility] Comment on above: Order Comment: COLOR OF URINE MAY AFFECT DIPSTICK RESULTS.CLEAN CATCH Performed By: #### L 400.0001 ####[facility] [address] [place] [id number] EPI,SQUAMOUS 0-5 SEEN Normal 0-5 [facility] Comment on above: Order Comment: COLOR OF URINE MAY AFFECT DIPSTICK RESULTS.CLEAN CATCH Performed By: #### L 400.0001 ####[facility] [address] [place] [address] RBC > 100 SEEN Normal 0-5 [facility] Comment on above: Order Comment: COLOR OF URINE MAY AFFECT DIPSTICK RESULTS.CLEAN CATCH Result Comment: Micr oscopic field is filled. Other elements may be obscured. Performed By: #### L 400.0001 ####[facility] [address] [place] [id number] WBC 10-25 SEEN Normal 0-5 [facility] Comment on above: Order Comment: COLOR OF URINE MAY AFFECT DIPSTICK RESULTS.CLEAN CATCH Performed By: #### L 400.0001 ####[facility] [address] [place] [address] BILIRUBIN URINE Negative Normal Negative [facility] Comment on above: Order Comment: COLOR OF URINE MAY AFFECT DIPSTICK RESULTS.CLEAN CATCH Performed By: #### L 400.0001 ####[facility] [address] [place] [address] Clarity (U) Cloudy Normal Clear [facility] Comment on above: Order Comment: COLOR OF URINE MAY AFFECT DIPSTICK RESULTS.CLEAN CATCH Performed By: #### L 400.0001 ####[facility] [address] [place], [address] Color (U) Red Normal Yellow [facility] Comment on above: Order Comment: COLOR OF URINE MAY AFFECT DIPSTICK RESULTS.CLEAN CATCH Performed By: #### L 400.0001 ####[facility] [address] [place], [address] GLUCOSE, UR Normal Normal Normal [facility] Comment on above: Order Comment: COLOR OF URINE MAY AFFECT DIPSTICK RESULTS.CLEAN CATCH Performed By: #### L 400.0001 ####[facility] [address] [place], [address] KETONE UR Negative Normal Negative [facility] Comment on above: Order Comment: COLOR OF URINE MAY AFFECT DIPSTICK RESULTS.CLEAN CATCH Performed By: #### L 400.0001 ####[facility] [address] [place], [address] LEUK ESTERASE 25 /ul Abnormal Negative [facility] Comment on above: Order Comment: COLOR OF URINE MAY AFFECT DIPSTICK RESULTS.CLEAN CATCH Performed By: #### L 400.0001 ####[facility] [address] [place], [address] Nitrite Ql (U) Positive Abnormal Negative [facility] Comment on above: Order Comment: COLOR OF URINE MAY AFFECT DIPSTICK RESULTS.CLEAN CATCH Performed By: #### L 400.0001 ####[facility] [address] [place], [address] OCCULT BLOOD-UR 250 /ul Abnormal Negative [facility] Comment on above: Order Comment: COLOR OF URINE MAY AFFECT DIPSTICK RESULTS.CLEAN CATCH Performed By: #### L 400.0001 ####[facility] [address] [place], [address] pH UR 6.0 Normal 5.0 - 8.0 [facility] Comment on above: Order Comment: COLOR OF URINE MAY AFFECT DIPSTICK RESULTS.CLEAN CATCH Performed By: #### L 400.0001 ####[facility] [address] [place], [address] PROT DIPSTX 100 mg/dl Abnormal Negative [facility] Comment on above: Order Comment: COLOR OF URINE MAY AFFECT DIPSTICK RESULTS.CLEAN CATCH Performed By: #### L 400.0001 ####[facility] [address] [place], [address] SP.GR. DIPSTX 1.020 Normal 1.002-1.030 [facility] Comment on above: Order Comment: COLOR OF URINE MAY AFFECT DIPSTICK RESULTS.CLEAN CATCH Performed By: #### L 400.0001 ####[facility] [address] [place], [address] UROBILI Normal Normal Normal [facility] Comment on above: Order Comment: COLOR OF URINE MAY AFFECT DIPSTICK RESULTS.CLEAN CATCH Performed By: #### L 400.0001 ####[facility] [address] [place], [address] Mucus Ql (Urine sed) 0 SEEN Normal [facility] Comment on above: Order Comment: COLOR OF URINE MAY AFFECT DIPSTICK RESULTS.CLEAN CATCH Performed By: #### L 400.0001 ####[facility] [address] 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 [facility] Urine glucose detectionOrder ed By: Jeffery Turpin on 05-16-2024 Glucose Ql (U) Normal mg/dl Normal [facility] Urine leukocyte esterase det ection by dipstickOrdered By: Jeffery Turpin on 05-16-2024 Leukocyte esterase Test strip Ql (U) 25 /ul High Negative [facility] Urine pHOrdered By: Jeffery de la torre on 05-16-2024 pH (U) 6.0 [pH] 5.0 - 8.0 [facility] Urine sediment bacteria coun t by microscopy (number/high power field)Ordered By: Jeffery Turpin on 05-16-2024 Bacteria LM.HPF (Urine sed) [#/Area] 1 /[HPF] None Seen [facility] Urine sediment erythrocyte c ast detection by light microscopyOrdered By: Jeffery Turpin on 05-16-2024 RBC casts LM Ql (Urine sed) 0-5 SEEN /lpf None Seen [facility] Urine specific gravity measu rementOrdered By: Jeffery Turpin on 05-16-2024 Specific gravity (U) [Rel density] 1.020 1.002-1.030 [facility] Urine urobilinogen measureme ntOrdered By: Jeffery Turpin on 05-16-2024 Urobilinogen Ql (U) Normal mg/dl Normal [facility] Urobilinogen Ql (U)Ordered B y: Jeffery Turpin on 05-16-2024 Urine Urobilinogen Normal mg/dl Normal [facility] White blood cell (WBC) count Ordered By: Jeffery Turpin on 05-16-2024 WBC (Bld) [#/Vol] 7.3 10*3/uL 4.4-11.0 [facility] White blood cell countOrdere d By: Jeffery Turpin on 05-16-2024 Urine WBC 10-25 SEEN /hpf 0-5 [facility] White blood cell count 10-25 SEEN /hpf 0-5 [facility] Anion gap in Serum or Plasma Ordered By: Padmini Carrasco on 05-10-2024 Anion gap [Moles/Vol] 12 mmol/L 5-15 [facility] BUN/creatinine ratioOrdered By: Padmini Carrasco on 05-10-2024 Urea nitrogen/Creatinine [Mass ratio] 16.8 mg/mg 10-20 [facility] Basic Metabolic Profile (BMP )on 05-10-2024 BUN Normal 4-19 [facility] Comment on above: Order Comment: Order Date: 06/16/23Order Info: 06- - BMP Result Comment: ADDE D TO 05/10/24 LAB DRAW Performed By: #### L 506.1001, L509.1000, L503.0106 #### [facility] [address] [place], [address] BUN/CRE Normal 10-20 [facility] Comment on above: Order Comment: Order Date: 06/16/23Order Info: [id number] - BMP Result Comment: ADDE D TO 05/10/24 LAB DRAW Performed By: #### L 506.1001, L509.1000, L503.0106 #### [facility] [address] [place], [address] Calcium Normal 7.6-11.0 [facility] Comment on above: Order Comment: Order Date: 06/16/23Order Info: [id number] - BMP Result Comment: ADDE D TO 05/10/24 LAB DRAW Performed By: #### L 506.1001, L509.1000, L503.0106 #### [facility] [address] [place], [address] CL Normal 98-108 [facility] Comment on above: Order Comment: Order Date: 06/16/23Order Info: 06 - BMP Result Comment: ADDE D TO 05/10/24 LAB DRAW Performed By: #### L 506.1001, L509.1000, L503.0106 #### [facility] [address] [place], [address] CO2 Normal 21.0-32.0 [facility] Comment on above: Order Comment: Order Date: 06/16/23Order Info: 06 - BMP Result Comment: ADDE D TO 05/10/24 LAB DRAW Performed By: #### L 506.1001, L509.1000, L503.0106 #### [facility] [address] [place], [address] CREAT,SERUM Normal 0.70-1.20 [facility] Comment on above: Order Comment: Order Date: 06/16/23Order Info: [id number] - BMP Result Comment: ADDE D TO 05/10/24 LAB DRAW Performed By: #### L 506.1001, L509.1000, L503.0106 #### [facility] [address] [place], [address] eGFR Normal >60 [facility] Comment on above: Order Comment: Order Date: 06/16/23Order Info: [id number] - BMP Result Comment: ADDE D TO 05/10/24 LAB DRAW Performed By: #### L 506.1001, L509.1000, L503.0106 #### [facility] [address] [place], [address] GAP Normal 5-15 [facility] Comment on above: Order Comment: Order Date: 06/16/23Order Info: [id number] - BMP Result Comment: ADDE D TO 05/10/24 LAB DRAW Performed By: #### L 506.1001, L509.1000, L503.0106 #### [facility] [address] [place], [address] GLU Normal 70-99 [facility] Comment on above: Order Comment: Order Date: 06/16/23Order Info: 06 - BMP Result Comment: ADDE D TO 05/10/24 LAB DRAW Performed By: #### L 506.1001, L509.1000, L503.0106 #### [facility] [address] [place], [address] Potassium Normal 3.3-5.1 [facility] Comment on above: Order Comment: Order Date: 06/16/23Order Info: 06 - BMP Result Comment: ADDE D TO 05/10/24 LAB DRAW Performed By: #### L 506.1001, L509.1000, L503.0106 #### [facility] [address] [place], [address] Basic Metabolic Profile (BMP) Normal 133-145 [facility] Comment on above: Order Comment: Order Date: 06/16/23Order Info: [id number] - BMP Result Comment: ADDE D TO 05/10/24 LAB DRAW Performed By: #### L 506.1001, L509.1000, L503.0106 #### [facility] [address] [place], [address] Bilirubin, totalOrdered By: Padmini Carrasco on 05-10-2024 Bilirubin [Mass/Vol] 0.18 mg/dL 0.00-1.30 [facility] CBC-Complete Blood Cnt No Di ffon 05-10-2024 Erythrocyte distribution width (RBC) [Ratio] 13.2 % Normal 11.6-14.6 [facility] Comment on above: Order Comment: Order Date: 10/12/23Order Info: [id number] - CBC Performed By: #### L 506.1001, L509.1000, L503.0106 #### [facility] [address] [place], [address] Hematocrit (Bld) [Volume fraction] 42.5 % Normal 40-54 [facility] Comment on above: Order Comment: Order Date: 10/12/23Order Info: [id number] - CBC Performed By: #### L 506.1001, L509.1000, L503.0106 #### [facility] [address] [place], [address] Hemoglobin (Bld) [Mass/Vol] 13.6 g/dL Normal 13.0-16.5 [facility] Comment on above: Order Comment: Order Date: 10/12/23Order Info: [id number] - CBC Performed By: #### L 506.1001, L509.1000, L503.0106 #### [facility] [address] [place], [address] MCH (RBC) [Entitic mass] 30.0 pg Normal 27.0-32.0 [facility] Comment on above: Order Comment: Order Date: 10/12/23Order Info: [id number] - CBC Performed By: #### L 506.1001, L509.1000, L503.0106 #### [facility] [address] [place], [address] MCHC (RBC) [Mass/Vol] 32.0 g/dL Normal 32-36 [facility] Comment on above: Order Comment: Order Date: 10/12/23Order Info: [id number] - CBC Performed By: #### L 506.1001, L509.1000, L503.0106 #### [facility] [address] [place], [address] MCV (RBC) [Entitic vol] 93.8 fL Normal 80-94 [facility] Comment on above: Order Comment: Order Date: 10/12/23Order Info: [id number] - CBC Performed By: #### L 506.1001, L509.1000, L503.0106 #### [facility] [address] [place], [address] Platelet mean volume (Bld) [Entitic vol] 9.2 fL Normal 6.2-12.0 [facility] Comment on above: Order Comment: Order Date: 10/12/23Order Info: [id number] - CBC Performed By: #### L 506.1001, L509.1000, L503.0106 #### [facility] [address] [place], [address] Platelets (Bld) [#/Vol] 168 10*3/uL Normal 150-450 [facility] Comment on above: Order Comment: Order Date: 10/12/23Order Info: [id number] - CBC Performed By: #### L 506.1001, L509.1000, L503.0106 #### [facility] [address] [place], [address] RBC (Bld) [#/Vol] 4.53 10*6/uL Low 4.6-6.2 [facility] Comment on above: Order Comment: Order Date: 10/12/23Order Info: [id number] - CBC Performed By: #### L 506.1001, L509.1000, L503.0106 #### [facility] [address] [place], [address] RDW SD 45.1 fl High 35.1-43.9 [facility] Comment on above: Order Comment: Order Date: 10/12/23Order Info: [id number] - CBC Performed By: #### L 506.1001, L509.1000, L503.0106 #### [facility] [address] [place], [address] WBC (Bld) [#/Vol] 6.9 10*3/uL Normal 4.4-11.0 [facility] Comment on above: Order Comment: Order Date: 10/12/23Order Info: [id number] - CBC Performed By: #### L 506.1001, L509.1000, L503.0106 #### [facility] [address] [place], [address] HCT Normal 40-54 [facility] Comment on above: Order Comment: Order Date: 10/12/23 Order Info: [id number] - CMP Order Info: [id number] - LIPID Order Info: [id number] - TSH Order Info: [id number] - PSA Order Info: [id number] - Result Comment: ADDE D TO 05/10/24 LAB DRAW Performed By: #### L 506.1001, L509.1000, L503.0106 #### [facility] [address] [place], [address] HGB Normal 13.0-16.5 [facility] Comment on above: Order Comment: Order Date: 10/12/23 Order Info: [id number] - CMP Order Info: [id number] - LIPID Order Info: [id number] - TSH Order Info: [id number] - PSA Order Info: [id number] Result Comment: ADDE D TO 05/10/24 LAB DRAW Performed By: #### L 506.1001, L509.1000, L503.0106 #### [facility] [address] [place], [address] MCH Normal 27.0-32.0 [facility] Comment on above: Order Comment: Order Date: 10/12/23 Order Info: [id number] - CMP Order Info: [id number] - LIPID Order Info: [id number] - TSH Order Info: [id number] - PSA Order Info: [id number] Result Comment: ADDE D TO 05/10/24 LAB DRAW Performed By: #### L 506.1001, L509.1000, L503.0106 #### [facility] [address] [place], [address] MCHC Normal 32-36 [facility] Comment on above: Order Comment: Order Date: 10/12/23 Order Info: [id number] - CMP Order Info: - LIPID Order Info: [id number] - TSH Order Info: [id number] - PSA Order Info: [id number] Result Comment: ADDE D TO 05/10/24 LAB DRAW Performed By: #### L 506.1001, L509.1000, L503.0106 #### [facility] [address] [place], [address] MCV Normal 80-94 [facility] Comment on above: Order Comment: Order Date: 10/12/23 Order Info: [id number] - CMP Order Info: [id number] - LIPID Order Info: [id number] - TSH Order Info: [id number] - PSA Order Info: [id number] Result Comment: ADDE D TO 05/10/24 LAB DRAW Performed By: #### L 506.1001, L509.1000, L503.0106 #### [facility] [address] [place], [address] PLT Normal 150-450 [facility] Comment on above: Order Comment: Order Date: 10/12/23 Order Info: [id number] - CMP Order Info: [id number] - LIPID Order Info: [id number] - TSH Order Info: 285-1 - PSA Order Info: 2497-05 Result Comment: ADDE D TO 05/10/24 LAB DRAW Performed By: #### L 506.1001, L509.1000, L503.0106 #### [facility] [address] [place], [address] RBC Normal 4.6-6.2 [facility] Comment on above: Order Comment: Order Date: 10/12/23 Order Info: 86-1 - CMP Order Info: [id number] - LIPID Order Info: 3 - TSH Order Info: 1 - PSA Order Info: 2497-05 Result Comment: ADDE D TO 05/10/24 LAB DRAW Performed By: #### L 506.1001, L509.1000, L503.0106 #### [facility] [address] [place], [address] RDW CV Normal 11.6-14.6 [facility] Comment on above: Order Comment: Order Date: 10/12/23 Order Info: 785-1 - CMP Order Info: [id number] - LIPID Order Info: 3 - TSH Order Info: 1 - PSA Order Info: 2497-05 Result Comment: ADDE D TO 05/10/24 LAB DRAW Performed By: #### L 506.1001, L509.1000, L503.0106 #### [facility] [address] [place], [address] RDW SD Normal 35.1-43.9 [facility] Comment on above: Order Comment: Order Date: 10/12/23 Order Info: 785-1 - CMP Order Info: [id number] - LIPID Order Info: 3 - TSH Order Info: 2851 - PSA Order Info: 2497-05 Result Comment: ADDE D TO 05/10/24 LAB DRAW Performed By: #### L 506.1001, L509.1000, L503.0106 #### [facility] [address] [place], [address] WBC Normal 4.4-11.0 [facility] Comment on above: Order Comment: Order Date: 10/12/23 Order Info: 785-02 - CMP Order Info: - LIPID Order Info: 3015-04 - TSH Order Info: 2856-02 - PSA Order Info: 2497-05 Result Comment: ADDE D TO 05/10/24 LAB DRAW Performed By: #### L 506.1001, L509.1000, L503.0106 #### [facility] [address] [place], [place], [address] Calculated very low density lipoprotein (VLDL) cholesterol measurementOrdered By: Padmini Carrasco on 05-10-2024 Calculated very low density lipoprotein (VLDL) cholesterol measurement 31 mg/dL 5-40 [facility] VLDL Cholesterol 31 mg/dL 5-40 [facility] Carbon dioxide, total [Moles /volume] in Central venous bloodOrdered By: Padmini Carrasco on 05-10-2024 CO2 [Moles/Vol] 22.7 mmol/L 21.0-32.0 [facility] Chloride assayOrdered By: Rambo Carrasco on 05-10-2024 Chloride [Moles/Vol] 104 mmol/L 98-108 [facility] Comprehensive Metabolic Prof ilon 05-10-2024 Albumin [Mass/Vol] 3.9 g/dL Normal 3.4-4.8 [facility] Comment on above: Order Comment: Order Date: 10/12/23 Order Info: 0786 - CMP Order Info: - LIPID Order Info: 3015-04 - TSH Order Info: 2856-02 - PSA Order Info: 2497-05 Performed By: #### L 506.1001, L509.1000, L503.0106 #### [facility] [address] [place], [place], [address] Albumin/Globulin [Mass ratio] 1.4 {ratio} Normal 0.9-2.4 [facility] Comment on above: Order Comment: Order Date: 10/12/23 Order Info: 86-1 - CMP Order Info: [id number] - LIPID Order Info: 3 - TSH Order Info: 2856-02 - PSA Order Info: 4 - FE Performed By: #### L 506.1001, L509.1000, L503.0106 #### [facility] [address] [place], [address] ALK PHOS 73 U/L Normal 40-129 [facility] Comment on above: Order Comment: Order Date: 10/12/23 Order Info: 785-02 - CMP Order Info: - LIPID Order Info: 3015-04 - TSH Order Info: 2856-02 - PSA Order Info: 2497-05 - FE Performed By: #### L 506.1001, L509.1000, L503.0106 #### [facility] [address] [place], [place], [address] ALT [Catalytic activity/Vol] 6 U/L Normal <=46 [facility] Comment on above: Order Comment: Order Date: 10/12/23 Order Info: 785- - CMP Order Info: - LIPID Order Info: 3015-04 - TSH Order Info: 2856-02 - PSA Order Info: 24909-10 - FE Performed By: #### L 506.1001, L509.1000, L503.0106 #### [facility] [address] [place], [place], [address] AST [Catalytic activity/Vol] 16 U/L Normal <=37 [facility] Comment on above: Order Comment: Order Date: 10/12/23 Order Info: 86-1 - CMP Order Info: 31310-2 - LIPID Order Info: 3015-04 - TSH Order Info: 2856-02 - PSA Order Info: 24909-10 - FE Performed By: #### L 506.1001, L509.1000, L503.0106 #### [facility] [address] [place], [address] Bilirubin [Mass/Vol] 0.18 mg/dL Normal 0.00-1.30 [facility] Comment on above: Order Comment: Order Date: 10/12/23 Order Info: 0786-1 - CMP Order Info: [id number] - LIPID Order Info: 3015-3 - TSH Order Info: 2857-1 - PSA Order Info: 2498-4 - FE Performed By: #### L 506.1001, L509.1000, L503.0106 #### [facility] [address] [place], [address] BUN/CRE 16.8 RATIO Normal 10-20 [facility] Comment on above: Order Comment: Order Date: 10/12/23 Order Info: 785-1 - CMP Order Info: [id number] - LIPID Order Info: 3 - TSH Order Info: 2851 - PSA Order Info: 2498-4 - FE Performed By: #### L 506.1001, L509.1000, L503.0106 #### [facility] [address] [place], [address] Calcium [Mass/Vol] 9.0 mg/dL Normal 7.6-11.0 [facility] Comment on above: Order Comment: Order Date: 10/12/23 Order Info: 0786-1 - CMP Order Info: 11299-1 - LIPID Order Info: 3013 - TSH Order Info: 2857-1 - PSA Order Info: 2498-4 - FE Performed By: #### L 506.1001, L509.1000, L503.0106 #### [facility] [address] [place], [address] Chloride [Moles/Vol] 104 mmol/L Normal 98-108 [facility] Comment on above: Order Comment: Order Date: 10/12/23 Order Info: 0786-1 - CMP Order Info: - LIPID Order Info: 3015-04 - TSH Order Info: 2856-02 - PSA Order Info: 2498-4 - FE Performed By: #### L 506.1001, L509.1000, L503.0106 #### [facility] [address] [place], [address] CO2 [Moles/Vol] 22.7 mmol/L Normal 21.0-32.0 [facility] Comment on above: Order Comment: Order Date: 10/12/23 Order Info: 86-1 - CMP Order Info: - LIPID Order Info: 3 - TSH Order Info: 2856-02 - PSA Order Info: 24984 - FE Performed By: #### L 506.1001, L509.1000, L503.0106 #### [facility] [address] [place], [address] Creatinine [Mass/Vol] 1.64 mg/dL High 0.70-1.20 [facility] Comment on above: Order Comment: Order Date: 10/12/23 Order Info: 785- - CMP Order Info: - LIPID Order Info: 3015-04 - TSH Order Info: 2856-02 - PSA Order Info: 2498-4 - FE Performed By: #### L 506.1001, L509.1000, L503.0106 #### [facility] [address] [place], [address] GAP 12 Normal 5-15 [facility] Comment on above: Order Comment: Order Date: 10/12/23 Order Info: 785- - CMP Order Info: - LIPID Order Info: 3 - TSH Order Info: [id number] - PSA Order Info: 2498-4 - FE Performed By: #### L 506.1001, L509.1000, L503.0106 #### [facility] [address] [place], [address] GFR/1.73 sq M.predicted among non-blacks MDRD (S/P/Bld) [Vol rate/Area] 44 mL/min/{1.73_m2} Low >60 [facility] Comment on above: Order Comment: Order Date: 10/12/23 Order Info: 0786-1 - CMP Order Info: 85822-5 - LIPID Order Info: 6-3 - TSH Order Info: 285-1 - PSA Order Info: 24909-10 - FE Result Comment: mL/m in/1.73m2 CKD-EPI Creatinine Equation (2020) Performed By: #### L 506.1001, L509.1000, L503.0106 #### [facility] [address] [place], [address] Globulin (S) [Mass/Vol] 2.8 g/dL Normal 2.2-4.2 [facility] Comment on above: Order Comment: Order Date: 10/12/23 Order Info: 785-02 - CMP Order Info: [id number] - LIPID Order Info: 3 - TSH Order Info: 2856-02 - PSA Order Info: 2494 - FE Performed By: #### L 506.1001, L509.1000, L503.0106 #### [facility] [address] [place], [address] Glucose [Mass/Vol] 163 mg/dL High 70-99 [facility] Comment on above: Order Comment: Order Date: 10/12/23 Order Info: 0786 - CMP Order Info: [id number] - LIPID Order Info: 3 - TSH Order Info: 2851 - PSA Order Info: 2494 - FE Performed By: #### L 506.1001, L509.1000, L503.0106 #### [facility] [address] [place], [address] Potassium [Moles/Vol] 4.8 mmol/L Normal 3.3-5.1 [facility] Comment on above: Order Comment: Order Date: 10/12/23 Order Info: 07-1 - CMP Order Info: - LIPID Order Info: 3015-04 - TSH Order Info: 2856-02 - PSA Order Info: 2497-05 - FE Performed By: #### L 506.1001, L509.1000, L503.0106 #### [facility] [address] [place], [address] Sodium [Moles/Vol] 138 mmol/L Normal 133-145 [facility] Comment on above: Order Comment: Order Date: 10/12/23 Order Info: 785- - CMP Order Info: - LIPID Order Info: 3015-04 - TSH Order Info: 2856-02 - PSA Order Info: 2497-05 - FE Performed By: #### L 506.1001, L509.1000, L503.0106 #### [facility] [address] [place], [address] T PROT 6.7 g/dL Normal 5.9-8.4 [facility] Comment on above: Order Comment: Order Date: 10/12/23 Order Info: 785-02 - CMP Order Info: - LIPID Order Info: 3015-04 - TSH Order Info: 2856-02 - PSA Order Info: 24909-10 - FE Performed By: #### L 506.1001, L509.1000, L503.0106 #### [facility] [address] [place], [address] Urea nitrogen [Mass/Vol] 28 mg/dL High 4-19 [facility] Comment on above: Order Comment: Order Date: 10/12/23 Order Info: 785-02 - CMP Order Info: - LIPID Order Info: 3015-04 - TSH Order Info: 2856-02 - PSA Order Info: 24909-10 - FE Performed By: #### L 506.1001, L509.1000, L503.0106 #### [facility] [address] [place], [address] Erythrocyte distribution wid th (RBC) [Ratio]Ordered By: Padmini Carrasco on 05-10-2024 Erythrocyte distribution width (RBC) [Entitic vol] 45.1 fL High 35.1-43.9 [facility] Erythrocyte distribution wid th ratioOrdered By: Padmini Carrasco on 05-10-2024 Erythrocyte distribution width (RBC) [Ratio] 13.2 % 11.6-14.6 [facility] Erythrocyte distribution wid th standard deviationOrdered By: Padmini Carrasco on 05-10-2024 Erythrocyte distribution width (RBC) [Ratio] 45.1 fl High 35.1-43.9 [facility] GFR/1.73 sq M.predicted kasie g non-blacks MDRD (S/P/Bld) [Vol rate/Area]Ordered By: Padmini Carrasco on 05-10-2024 Estimated GFR (MDRD) Non-Af Amer 44 Low >60 [facility] Comment on above: mL/min/1.73m2 CKD-EP I Creatinine Equation (2020) Glomerular filtration rate ( GFR) estimation/1.73 sq m using serum, plasma, or whole bOrdered By: Padmini Carrasco on 05-10-2024 GFR/1.73 sq M.predicted among non-blacks MDRD (S/P/Bld) [Vol rate/Area] 44 mL/min/{1.73_m2} Low >60 [facility] Comment on above: mL/min/1.73m2 CKD-EP I Creatinine Equation (2020) Hematocrit Auto (Bld) [Volum e fraction]Ordered By: Padmini Carrasco on 05-10-2024 Hematocrit (Bld) [Volume fraction] 42.5 % 40-54 [facility] Hemoglobin measurementOrdere d By: Padmini Carrasco on 05-10-2024 Hemoglobin (Bld) [Mass/Vol] 13.6 g/dL 13.0-16.5 [facility] Ironon 05-10-2024 Iron [Mass/Vol] 57 ug/dL Low 65-175 [facility] Comment on above: Order Comment: Order Date: 10/12/23Order Info: 0786-1 - CMPOrder Info: [id number] - LIPIDOrder Info: 3016-3 - TSHOrder Info: 2857-1 - PSAOrder Info: 2497-05 - FE Performed By: #### L 506.1001, L509.1000, L503.0106 #### [facility] [address] [place], [address] Iron (Unsp spec) [Mass/Mass] Ordered By: Padmini Carrasco on 05-10-2024 Iron [Mass/Vol] 57 ug/dL Low 65-175 [facility] Iron measurement (mass/mass) Ordered By: Padmini Carrasco on 05-10-2024 Iron (Unsp spec) [Mass/Mass] 57 ug/dL Low 65-175 [facility] LDL calc ser/plasOrdered By: Padmini Carrasco on 05-10-2024 Cholesterol in LDL [Mass/Vol] 63 mg/dL [facility] Comment on above: Bykvowyehe=455-413 m g/dL & Higher Pimk=306 mg/dL or greater LDL Cholesterol, Calculated 63 mg/dL [facility] Comment on above: Mclvdhhviz=369-825 m g/dL & Higher Qdgf=033 mg/dL or greater Laboratory - Chemistry and C hemistry - challengeOrdered By: Padmini Carrasco on 05-10-2024 AST [Catalytic activity/Vol] 16 U/L <38 [facility] Lipid Profileon 05-10-2024 CHOL:HDL 2.86 Normal [facility] Comment on above: Order Comment: Order Date: 10/12/23 Order Info: 0786-1 - CMP Order Info: [id number] - LIPID Order Info: 3015-3 - TSH Order Info: 28508-07 - PSA Order Info: 2497-05 - FE Performed By: #### L 506.1001, L509.1000, L503.0106 #### [facility] [address] [place], [address] Cholesterol [Mass/Vol] 144 mg/dL Normal <=200 [facility] Comment on above: Order Comment: Order Date: 10/12/23 Order Info: 0786-1 - CMP Order Info: [id number] - LIPID Order Info: 301-3 - TSH Order Info: 2856-02 - PSA Order Info: 2498-4 - FE Result Comment: Chol esterol level, Desirable <200 mg/dL Borderline high cholesterol 200-239 mg/dL High cholesterol >=240 mg/dL Recommendations of the NCEP Adult Treatment Panel for the following risk-cutoff thresholds for the [place] population. Performed By: #### L 506.1001, L509.1000, L503.0106 #### [facility] [address] [place], [address] Cholesterol in HDL [Mass/Vol] 50 mg/dL Normal [facility] Comment on above: Order Comment: Order Date: 10/12/23 Order Info: 0786-1 - CMP Order Info: [id number] - LIPID Order Info: 3 - TSH [...] By: #### L 506.1001, L509.1000, L503.0106 #### [facility] [address] [place], [address] Cholesterol in LDL [Mass/Vol] 63 mg/dL Normal [facility] Comment on above: Order Comment: Order Date: 10/12/23 Order Info: 0786- - CMP Order Info: [id number] - LIPID Order Info: 3 - TSH Order Info: 2856-02 - PSA Order Info: 2497-05 Result Comment: Bord peznyc=455-402 mg/dL Higher Rjfz=710 mg/dL or greater Performed By: #### L 506.1001, L509.1000, L503.0106 #### [facility] [address] [place], [address] Cholesterol in VLDL [Mass/Vol] 31 mg/dL Normal 5-40 [facility] Comment on above: Order Comment: Order Date: 10/12/23 Order Info: 0786-1 - CMP Order Info: 90077-1 - LIPID Order Info: 3 - TSH Order Info: 2856-02 - PSA Order Info: 2497-05 Performed By: #### L 506.1001, L509.1000, L503.0106 #### [facility] [address] [place], [address] Triglyceride [Mass/Vol] 155 mg/dL Normal [facility] Comment on above: Order Comment: Order Date: 10/12/23 Order Info: 0786-1 - CMP Order Info: [id number] - LIPID Order Info: 3015-04 - TSH Order Info: 2856-02 - PSA Order Info: 2497-05 Result Comment: The drugs N-Acetylcysteine and Metamizole may falsely depress this assay. Normal range: <150 mg/dL Borderline High: 150-199 mg/dL High: 200-499 mg/dL Very High: >500 mg/dL Performed By: #### L 506.1001, L509.1000, L503.0106 #### [facility] [address] [place], [place], [address] MCV (mean corpuscular volume ) determinationOrdered By: Padmini Carrasco on 05-10-2024 MCV (RBC) [Entitic vol] 93.8 fL 80-94 [facility] Mean corpuscular hemoglobin (MCH) determinationOrdered By: Padmini Carrasco on 05-10-2024 MCH (RBC) [Entitic mass] 30.0 pg 27.0-32.0 [facility] Mean corpuscular hemoglobin concentration (MCHC) determinationOrdered By: Padmini Carrasco on 05-10-2024 MCHC (RBC) [Mass/Vol] 32.0 g/dL 32-36 [facility] Mean platelet volume determi nationOrdered By: Padmini Carrasco on 05-10-2024 Platelet mean volume (Bld) [Entitic vol] 9.2 fL 6.2-12.0 [facility] PSA, total screeningOrdered By: Padmini Carrasco on 05-10-2024 Prostate Specific Antigen Screen 0.49 ng/mL 0.02-4.00 [facility] Comment on above: This test was [...] 05-10-2024 PSA,TOT SCREEN 0.49 ng/mL Normal 0.02-4.00 [facility] Comment on above: Order Comment: Order Date: 10/12/23 Order Info: 0786-1 - CMP Order Info: [id number] - LIPID Order Info: 3016-3 - TSH [...] By: #### L 506.1001, L509.1000, L503.0106 #### [facility] [address] [place], [address] PTH intactOrdered By: Horacio Carrasco on 05-10-2024 Parathyroid Hormone (Intact) 74 pg/mL High [facility] PTHINon 05-10-2024 PTH 74 pg/mL High [facility] Comment on above: Performed By: #### L 506.1001, L509.1000, L503.0106 #### [facility] [address] [place], [address] Platelet countOrdered By: Rambo Carrasco on 05-10-2024 Platelets (Bld) [#/Vol] 168 10*3/uL 150-450 [facility] Potassium (Unsp spec) [Mass/ Vol]Ordered By: Padmini Carrasco on 05-10-2024 Potassium [Moles/Vol] 4.8 mmol/L 3.3-5.1 [facility] Potassium measurement (mass/ volume)Ordered By: Padmini Carrasco on 05-10-2024 Potassium (Unsp spec) [Mass/Vol] 4.8 mmol/L 3.3-5.1 [facility] RBC Auto (Bld) [#/Vol]Ordere d By: Padmini Carrasco on 05-10-2024 RBC (Bld) [#/Vol] 4.53 10*6/uL Low 4.6-6.2 [facility] Screening total cholesterol/ high density lipoprotein (HDL) cholesterol ratioOrdered By: Padmini Carrasco on 05-10-2024 Cholesterol.total/Prisca sterol in HDL [Mass ratio] 2.86 {ratio} [facility] Serum creatinine measurement (mass/volume)Ordered By: Padmini Carrasco on 05-10-2024 Creatinine [Mass/Vol] 1.64 mg/dL High 0.70-1.20 [facility] Serum globulin measurementOr dered By: Padmini Carrasco on 05-10-2024 Globulin (S) [Mass/Vol] 2.8 g/dL 2.2-4.2 [facility] Serum glucose measurement (m ass/volume)Ordered By: Padmini Carrasco on 05-10-2024 Glucose [Mass/Vol] 163 mg/dL High 70-99 [facility] Serum or plasma alanine perales otransferase (ALT) measurementOrdered By: Padmini Carrasco on 05-10-2024 ALT [Catalytic activity/Vol] 6 U/L <47 [facility] Serum or plasma albumin jamel urement (mass/volume)Ordered By: Padmini Carrasco on 05-10-2024 Albumin [Mass/Vol] 3.9 g/dL 3.4-4.8 [facility] Serum or plasma albumin/glob ulin mass ratioOrdered By: Padmini Carrasco on 05-10-2024 Albumin/Globulin [Mass ratio] 1.4 {ratio} 0.9-2.4 [facility] Serum or plasma alkaline masha sphatase measurementOrdered By: Padmini Carrasco on 05-10-2024 ALP [Catalytic activity/Vol] 73 U/L 40-129 [facility] Serum or plasma calcium jamel urement (mass/volume)Ordered By: Padmini Carrasco on 05-10-2024 Calcium [Mass/Vol] 9.0 mg/dL 7.6-11.0 [facility] Serum or plasma cholesterol in HDL measurement (mass/volume)Ordered By: Padmini Carrasco on 05-10-2024 Cholesterol in HDL [Mass/Vol] 50 mg/dL >40 [facility] Comment on above: National Cholesterol Education Program (NCEP) guidelines:<40 mg/dL: Low HDL-cholesterol (major risk factor for CHD)>= 60 mg/dL: High HDL-cholesterol (negative risk factor for CHD)HDL-cholesterol is affected by a number of factors, e.g. smoking, exercise, hormones, sex and age. Serum or plasma cholesterol measurement (mass/volume)Ordered By: Padmini Carrasco on 05-10-2024 Cholesterol [Mass/Vol] 144 mg/dL <201 [facility] Comment on above: Cholesterol level, D esirable <200 mg/dLBorderline high cholesterol 200-239 mg/dLHigh cholesterol >=240 mg/dLRecommendations of the NCEP Adult Treatment Panel for the following risk-cutoff thresholds for the [place] population. Serum or plasma urea nitroge n measurement (mass/volume)Ordered By: Padmini Carrasco on 05-10-2024 Urea nitrogen [Mass/Vol] 28 mg/dL High 4-19 [facility] Sodium levelOrdered By: Jaz Carrasco on 05-10-2024 Sodium [Moles/Vol] 138 mmol/L 133-145 [facility] TSH DL <= 0.005 mIU/L QnOrde red By: Padmini Carrasco on 05-10-2024 Thyroid Stimulating Hormone (TSH) 3.680 uIU/mL 0.300-4.200 [facility] TSH Qn 3.680 uIU/mL 0.300-4.200 [facility] Thyroid Stim Hormone (TSH)on 05-10-2024 TSH 3.680 uIU/mL Normal 0.300-4.200 [facility] Comment on above: Order Comment: Order Date: 10/12/23 Order Info: 0786-1 - CMP Order Info: [id number] - LIPID Order Info: [id number] - TSH Order Info: [id number] - PSA Order Info: 24909-10 - FE Performed By: #### L 506.1001, L509.1000, L503.0106 #### [facility] [address] [place], [place], [id number] Total proteinOrdered By: Agueda Carrasco on 05-10-2024 Protein [Mass/Vol] 6.7 g/dL 5.9-8.4 [facility] Triglycerides measurementOrd ered By: Padmini Carrasco on 05-10-2024 Triglyceride [Mass/Vol] 155 mg/dL <199 [facility] Comment on above: The drugs N-Acetylcy steine and Metamizole may falsely depress this assay. Normal range: <150 mg/dLBorderline High: 150-199 mg/dLHigh: 200-499 mg/dLVery High: >500 mg/dL Vitamin B12on 05-10-2024 Cobalamin (Vitamin B12) [Mass/Vol] 355 pg/mL Normal 180-914 [facility] Comment on above: Order Comment: Order Date: 10/12/23 Order Info: 0786-1 - CMP Order Info: [id number] - LIPID Order Info: 3015-04 - TSH Order Info: 2856-02 - PSA Order Info: 24909-10 - FE Performed By: #### L 506.1001, L509.1000, L503.0106 #### [facility] [address] [place], [place], [address] Vitamin B12 ser/plasOrdered By: Padmini Carrasco on 05-10-2024 Cobalamin (Vitamin B12) [Mass/Vol] 355 pg/mL 180-914 [facility] Vitamin D, 25-hydroxyOrdered By: Padmini Carrasco on 05-10-2024 Vitamin D 25-Hydroxy 23.1 ng/mL Low 30-100 [facility] Comment on above: Vitamin D StatusDefi ciency: <20 ng/mL (50nmol/L)Insufficiency: 20-30 ng/mL (50-75 nmol/L)Sufficiency: 30-100 ng/mL (75-250 nmol/L)Toxicity: >100 ng/mL (>250 nmol/L) Vitamin D,25 Hydroxyon 05-10 Vitamin D 25-OH 23.1 ng/mL Low 30-100 [facility] Comment on above: Order Comment: Order Date: 10/12/23 Order Info: 0786-1 - CMP Order Info: [id number] - LIPID Order Info: 3016-3 - TSH Order Info: 2857-1 - PSA Order Info: 2498-4 - FE Result Comment: Tory min D Status Deficiency: <20 ng/mL (50nmol/L) Insufficiency: 20-30 ng/mL (50-75 nmol/L) Sufficiency: 30-100 ng/mL (75-250 nmol/L) Toxicity: >100 ng/mL (>250 nmol/L) Performed By: #### L 506.1001, L509.1000, L503.0106 #### [facility] [address] [place], [address] White blood cell (WBC) count Ordered By: Padmini Carrasco on 05-10-2024 WBC (Bld) [#/Vol] 6.9 10*3/uL 4.4-11.0 [facility] Pulmonary Visit Reporton Pulmonary Visit Report [facility] [address] [place] [address] OFFICE VISIT Date of Service: 03/23/24 MR#: [id number] Acct: [id number] Name: ABELARDO IVORY Rep #: [id number] 3 : 1950 Provider: TOÑO Tee Age/Sex: 74/M [place] [facility] [place] Status: Signed Assessment and Plan Assessment and [...] - Nicotine dependence, cigarettes, uncomplicated Medications: Refilled nixaxuogfmh-skneczjrw-m ilanter 200-62.5-25 mcg (Trelegy Ellipta) 1 inh [...] m fu Chief Complaint: s/p hernia 11/08 [employer] Required: No Accompanied by: Self Allergies No [...] pulmonary arterial hypertension Atherosclerotic heart disease of [place] coronary artery without angina pectoris Intention tremor Carotid stenosis, bilateral Hyperlipidemia Nonrheumatic aortic (valve) stenosis Essential hypertension Tobacco dependence Bilateral inguinal hernia Left carotid bruit Abdominal aortic aneurysm (AAA) Anemia Subcutane (more content not included)... Normal [facility] Low Dose CT Lung Screeningon 02-21-2024 Low Dose CT Lung Screening [facility] Imaging Services [address] [place] [id number] Lung Screening MR#: [id number] Acct: [id number] Name: ABELARDO IVORY Rep #: [id number] : 1950 M 73 From: Lebron mak MD PCP: Dr. Padmini Carrasco MD Status: REG CLI Study: Low Dose CT Lung Screening Date of Exam: 02/20 Exam# [id number] Ordering Dr: Carmina Tee NP REMEDIAL TEACHER-C [id number] STUDY: LOW DOSE CT LUNG CANCER SCREENING [...] CC: TOÑO Tee; Dr. Padmini Carrasco MD Associate Sales: Signed Normal [facility] Surgery Visit Reporton 02-01 Surgery Visit Report [facility] [address] [place] [address] OFFICE VISIT Date of Service: 02/02/24 MR#: [id number] Acct: [id number] Name: ABELARDO IVORY Rep #: [id number] : 1950 Provider: Dr. 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 Is patient in pain?: No [...] Diagnoses S/P inguinal hernia repair Z98.890; Z87.19 [facility] Medical History Wears dentures Wears glasses Bruising Easy bruising High cholesterol Smoker Shortness of breath on exertion History of echocardiogram Cardiology follow-up encounter Stage 3b chronic kidney disease (CKD) Thrombocytopenia Chronic kidney insufficiency Pleural effusion Secondary pulmonary arterial hypertension Atherosclerotic heart disease of [place] coronary artery without angina pectoris Intention tremor [...] S/P inguinal hernia repair: Status: Acute Comment: [facility] Plan: Patient is doing well after inguinal hernia repair. Incision is healing well. Activity as tolerated 6 weeks postop Marquise Barillas MD Pager: [facility] [address] [place] [address], [address] [place] [address] Office: 02/02/24 0841 Date [facility] Signature: Date (if applicable) CC: Normal [facility] Discharge Instructionon 01-07 Discharge Instruction [facility] Medical Records Department [address] [place] [address] Instructions for Home/Discharge Instructions 01/18/24 1159 MR#: [id number] Acct: [id number] Name: ABELARDO IVORY Rep #: [id number] : 1950 73 From: Marquise Barillas MD PCP: Dr. Padmini Carrasco MD Status:REG [facility] Discharge Instructions Procedure Hernia Diet Discharge Diet: [...] to schedule 2 week follow up appointment. [phone] Test Results: Test results from this visit will be discussed in further detail at your follow-up appointment, if applicable. Discharge Plan Admission Attending Provider: Marquise Barillas Primary Care Provider: Padmini Carrasco Instructions Print Language: Serbian Discharge Orders/Prescriptions Prescriptions: New oxycodone 5 mg [...] MD CC: Dr. Padmini Carrasco MD Signed [facility] MR/POSTOP.Layla 01-18-2024 MR/POSTOP.[facility] Medical Records Department [address] [place] [address] Anesthesia Postop Eval I 01/18/24 1143 MR#: [id number] Acct: [id number] Name: ABELARDO IVORY Rep #: [id number] : 1950 73 From: Arnold Clemons MD PCP: Dr. Padmini Carrasco MD Status:REG [facility] Y Race: C Location: [place] [address] Anesthesia: Postop Eval I Current Vital Signs [...] MD Cosigner Signature: Date CC: Signed Normal [facility] MR/[id number] 01-18-2024 [facility] Medical Records Department [address] [place] [address] Anesthesia Postop Eval II 01/18/24 1338 MR#: [id number] Acct: [id number] Name: ABELARDO IVORY Rep #: [id number] : 1950 73 From: Jose Cisneros MD PCP: Dr. Padmini Carrasco MD Status:REG SD Y Race: C Location: [place] [address] Anesthesia Postop Eval I Sum Postop Eval [...] Jose Jackson Signature: Date CC: Signed Normal [facility] Operative Reporton 4 Operative Report [facility] Medical Records Department [address] [place] [address] Operative Report 01/18/24 1156 MR#: [id number] Acct: [id number] Name: ABELARDO IVORY Rep #: [id number] : 1950 73 From: Marquise Barillas MD PCP: Dr. 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 The base of the inguinal canal [...] Documentation VTE Mechan Device Prophylaxis: SCD's 01/18/24 3179 Cosigner Signature (if applicable): CC: Dr. Marquise Barillas MD; Dr. Padmini Carrasco MD Signed Normal [facility] Surgery Specimen Level IIon 01-18-2024 Surgery Specimen Level II Patient Age/Sex Location Account Attending Physician ABELARDO IVORY 73/M [facility] [id number] Dr. Marquise Barillas MD Specimen: [id number] Received: 01/18/24-121 Status: EZEQUIEL Mack Num: [id number] Spec Type: Hernia Subm Dr: Dr. Marquise [...] x 1.0cm. No mass lesion is identified. Lead Producer sections are submitted in one cassette. SJ. 01/18/2024 TC:5 CPT:31822 Patient Age/Sex Location Account Attending Physician ABELARDO IVORY 73/M [facility] [id number] Dr. Marquise Barillas MD Signed (signature on file) Dr. Alex Rice, DO 01/19/24 1143 Normal [facility] Comment on above: Performed By: #### P SUII ####[facility] [id number] [place], [place], [address] Surgery Visit Reporton 11-22 Surgery Visit Report [facility] [address] [place] [address] OFFICE VISIT Date of Service: 11/23/23 MR#: [id number] Acct: [id number] Name: ABELARDO IVORY Rep #: [id number] : 1950 Provider: Dr. Marquise tsai MD Age/Sex: 73/M Location: [facility] Status: Signed Intake Vital Signs 11/09/23 09:40 [...] Diagnoses S/P inguinal hernia repair Z98.890; Z87.19 [facility] Medical History Wears dentures Wears glasses Bruising Easy bruising High cholesterol Smoker Shortness of breath on exertion History of echocardiogram Cardiology follow-up encounter Stage 3b chronic kidney disease (CKD) Thrombocytopenia Chronic kidney insufficiency Pleural effusion Secondary pulmonary arterial hypertension Atherosclerotic heart disease of [place] coronary artery without angina pectoris Intention tremor [...] to 8 weeks. Marquise Barillas MD Pager: [facility] [address] [place] [address], [address] [place] [address] Office: 11/23/23 0910 Date [facility]qu[facility]illas [facility]: Date (if applicable) CC: Normal [facility] Discharge Instructionon Discharge Instruction [facility] Medical Records Department [address] [place] [address] Instructions for Home/Discharge Instructions 11/09/23 1144 MR#: [id number] Acct: [id number] Name: ABELARDO IVORY Rep #: [id number] : 1950 73 From: Marquise Barillas MD PCP: Dr. Padmini Carrasco MD Status:REG [facility] Discharge Instructions Procedure Hernia Diet Discharge Diet: [...] to schedule 2 week follow up appointment. [phone] Test Results: Test results from this visit will be discussed in further detail at your follow-up appointment, if applicable. Discharge Plan Admission Attending Provider: Marquise Barillas Primary Care Provider: Padmini Carrasco Instructions Print Language: Serbian Discharge Orders/Prescriptions Prescriptions: New oxycodone 5 mg [...] CC: Dr. Padmini Carrasco MD Signed Normal [facility] MR/POSTOP.Layla 11-09-2023 MR/POSTOP.[facility] Medical Records Department [address] [place] [address] Anesthesia Postop Eval I 11/09/23 1135 MR#: [id number] Acct: [id number] Name: ABELARDO IVORY Rep #: [id number] : 1950 73 From: Yojana Jenkins PCP: Dr. Padmini Carrasco MD Status:REG [facility] Y Race: C Location: [place] [address] Anesthesia: Postop Eval I Current Vital Signs [...] Yojana Jackson Signature: Date CC: Signed Normal [facility] MR/[id number] 11-09-2023 [facility] Medical Records Department [address] [place] [address] Anesthesia Postop Eval II 11/09/23 1146 MR#: [id number] Acct: [id number] Name: ABELARDO IVORY Rep #: [id number] : 1950 73 From: Kwame Belle MD PCP: Dr. Padmini Carrasco MD Status:REG [facility] Y Race: C Location: [place] [address] Anesthesia Postop Eval I Sum Postop Eval Completion status Anesthesia document: Postop Eval 1 completed: Yes Anesthesia Postop Eval I Summary Anesthesia Postop Eval I Summary: Anesthesia Postop Eval I: Assessment Summary Airway patent Yes 11/09/23 11:35 [employer]CS[employer] Spontaneous unlabored Yes 11/09/23 11:35 DOCK ASSOCIATE.CSIR respirations Mental status nausea No 11/09/23 11:35 DOCK ASSOCIATE.CSIR Vomiting No 11/09/23 11:35 DOCK ASSOCIATE.CSIR Anesthesia Postop Eval I: Fluid Summary Crystalloid volume administer 500 11/09/23 11:35 DOCK ASSOCIATE.CSIR (ml) Colloids volume administered ( ml) Blood Product volume administered (ml) Total IV fluid infused 500 11/09/23 11:35 DOCK ASSOCIATE.CSIR Anesthesia Postop Eval I: Summary Notes Anesthesia Complication No 11/09/23 11:35 DOCK ASSOCIATE.CSIR Anesthesia Complication Comment: Post-operative progress note Anesthesia: Postop Eval II Evaluation Mental status: Awake Pain Level: 0 nausea: No Vomiting: No 11/09/23 1146 Date Kwame Belle MD Cosigner Signature: Date CC: Signed Normal [facility] Operative Reporton 4 Operative Report [facility] Medical Records Department [address] [place] [address] Operative Report 11/09/23 1139 MR#: [id number] Acct: [id number] Name: ABELARDO IVORY Rep #: [id number] : 1950 73 From: Marquise Barillas MD PCP: Dr. Padmini Carrasco MD Status:[facility] Location: [place] [address] Report of Operation Date of Procedure: 11/09/23 [...] MD; Dr. Padmini Carrasco MD Signed Normal [facility] Surgery Specimen Level IIon 11-09-2023 Surgery Specimen Level II Patient Age/Sex Location Account Attending Physician ABELARDO IVORY 73/M [facility] [id number] Dr. Marquise Barillas MD Specimen: [id number] Received: 11/09/23 Status: EZEQUIEL Mack Num: [id number] Spec Type: Hernia Subm Dr: Dr. Marquise [...] Sections do not reveal any mass lesions. Lead Producer sections are submitted in one cassette. 11/09/2023 TC:5 CPT:64162 Patient Age/Sex Location Account Attending Physician ABELARDO IVORY 73/M [facility] [id number] Dr. Marquise Barillas MD Signed (signature on file) Dr. Keith Gates MD 11/10/23 1326 [facility] Comment on above: Performed By: #### L 506.1001, L509.1000, L503.0106 #### [facility] [address] [place], [address] 12 Lead EKGon 10-27-2023 12 Lead EKG [facility] Cardiovascular Services [address] [place] [address] 12 Lead EKG 10/27/23 1215 MR#: [id number] Acct: [id number] Name: ABELARDO IVORY Rep #: [id number] : 1950 73 From: Evgeny Jacobo MD Attending Dr: Dr. Marquise Barillas MD Status: PRE SDC Ordering Dr: Kwame Belle MD Date: 10/27/23 Location: [facility] Sex: M C Admitted: Test Reason : PRE OP Blood Pressure : / mmHG Vent. Rate : 054 BPM Atrial Rate : 054 BPM P-R Int : 162 ms QRS Dur : 088 ms QT Int : 414 ms P-R-T Axes : 080 083 084 degrees QTc Int : 392 ms Sinus bradycardia Otherwise normal ECG Confirmed by Evgeny Jacobo ([id number]), multimedia editor ABIDA RODAS ([id number]) on 10/31/2023 10:18:03 AM Referred By: Marquise Barillas Confirmed By:Evgeny Jacobo 10/31/23 1018 Date Evgeny Jacobo MD CC: Dr. Marquise Barillas MD; Dr. Padmini Carrasco MD; Dr. Kwame Belle MD Signed Normal [facility] Basic Metabolic Profile (BMP )on 10-27-2023 BUN/CRE 17.7 RATIO Normal - [facility] Comment on above: Performed By: #### L 100.0500, L500.2500 #### [facility] [address] [place], [address] CA,Total 8.7 mg/dL Normal 8.5-10.1 [facility] Comment on above: Performed By: #### L 100.0500, L500.2500 #### [facility] [address] [place], [address] Chloride [Moles/Vol] 104 mmol/L Normal 98-107 [facility] Comment on above: Performed By: #### L 100.0500, L500.2500 #### [facility] [address] [place], [address] CO2 [Moles/Vol] 28.0 mmol/L Normal 21.0-32.0 [facility] Comment on above: Performed By: #### L 100.0500, L500.2500 #### [facility] [address] [place], [address] Creatinine [Mass/Vol] 1.47 mg/dL High 0.70-1.30 [facility] Comment on above: Result Comment: The validity of the calculated GFR GFRAA in patients over 70 years has not been determined. Clinical correlation is essential. Performed By: #### L 100.0500, L500.2500 #### [facility] [address] [place], [address] EST GFR - AA 60 mL/min Normal >60 [facility] Comment on above: Result Comment: Afri can Croatian GFR Calc Performed By: #### L 100.0500, L500.2500 #### [facility] [address] [place], [address] GAP 4 Low 5-15 [facility] Comment on above: Performed By: #### L 100.0500, L500.2500 #### [facility] [address] [place], [address] GFR/1.73 sq M.predicted among non-blacks MDRD (S/P/Bld) [Vol rate/Area] 50 mL/min/{1.73_m2} Low >60 [facility] Comment on above: Result Comment: Non- GFR Calc Performed By: #### L 100.0500, L500.2500 #### [facility] [address] [place], [address] Glucose [Mass/Vol] 103 mg/dL Normal 74-106 [facility] Comment on above: Result Comment: Fast ing Glucose result from 100 to 125 mg/dL suggests IMPAIRED HOMEOSTASIS per A.D.A. criteria. Performed By: #### L 100.0500, L500.2500 #### [facility] [address] [place], [address] Potassium [Moles/Vol] 4.4 mmol/L Normal 3.5-5.1 [facility] Comment on above: Performed By: #### L 100.0500, L500.2500 #### [facility] [address] [place], [address] Sodium [Moles/Vol] 136 mmol/L Normal 136-145 [facility] Comment on above: Performed By: #### L 100.0500, L500.2500 #### [facility] [address] [place], [address] Urea nitrogen [Mass/Vol] 26 mg/dL High 7-18 [facility] Comment on above: Performed By: #### L 100.0500, L500.2500 #### [facility] [address] [place], [address] CBC-Complete Blood Cnt No Di ffon 10-27-2023 Erythrocyte distribution width (RBC) [Ratio] 13.3 % Normal 11.6-14.6 [facility] Comment on above: Performed By: #### L 100.0500, L500.2500 #### [facility] [address] [place], [address] Hematocrit (Bld) [Volume fraction] 40.7 % Normal 40-54 [facility] Comment on above: Performed By: #### L 100.0500, L500.2500 #### [facility] [address] [place], [address] Hemoglobin (Bld) [Mass/Vol] 13.0 g/dL Normal 13.0-16.5 [facility] Comment on above: Performed By: #### L 100.0500, L500.2500 #### [facility] [address] [place], [address] MCH (RBC) [Entitic mass] 29.5 pg Normal 27.0-32.0 [facility] Comment on above: Performed By: #### L 100.0500, L500.2500 #### [facility] [address] [place], [address] MCHC (RBC) [Mass/Vol] 31.9 g/dL Low 32-36 [facility] Comment on above: Performed By: #### L 100.0500, L500.2500 #### [facility] [address] [place], [address] MCV (RBC) [Entitic vol] 92.3 fL Normal 80-94 [facility] Comment on above: Performed By: #### L 100.0500, L500.2500 #### [facility] [address] [place], [address] Platelet mean volume (Bld) [Entitic vol] 8.6 fL Normal 6.2-12.0 [facility] Comment on above: Performed By: #### L 100.0500, L500.2500 #### [facility] [address] [place], [address] Platelets (Bld) [#/Vol] 164 10*3/uL Normal 150-450 [facility] Comment on above: Performed By: #### L 100.0500, L500.2500 #### [facility] [address] [place], [address] RBC (Bld) [#/Vol] 4.41 10*6/uL Low 4.6-6.2 [facility] Comment on above: Performed By: #### L 100.0500, L500.2500 #### [facility] [address] [place], [address] RDW SD 45.3 fl High 35.1-43.9 [facility] Comment on above: Performed By: #### L 100.0500, L500.2500 #### [facility] [address] [place], [address] WBC (Bld) [#/Vol] 6.8 10*3/uL Normal 4.4-11.0 [facility] Comment on above: Performed By: #### L 100.0500, L500.2500 #### [facility] [address] [place], [address] Surgery Visit Reporton 10-23 Surgery Visit Report [facility] [address] [place] [address] OFFICE VISIT Date of Service: 10/24/23 MR#: [id number] Acct: [id number] Name: ABELARDO IVORY Rep #: [id number] : 1950 Provider: Dr. Marquise tsai MD Age/Sex: 73/M Location: [facility] Status: Signed Intake Vital Signs 08/25/23 09:12 [...] pulmonary arterial hypertension Atherosclerotic heart disease of [place] coronary artery without angina pectoris Intention tremor [...] coordination, No (more content not included)... Normal [facility] Basophil percentageOrdered B y: Farheen Alexander on 02-28-2023 Bilirubin [Mass/Vol] 0.20 mg/dL 0.20-1.00 [facility] Comment on above: For patients on eltr ombopag therapy, use of Dimension Oil Trough TBIL is not recommended. Cholesterol [Mass/Vol] 119 mg/dL <200 [facility] Comment on above: <200 mg/dL Desirable 200-240 mg/dL Borderline >240 mg/dL High Risk Protein [Mass/Vol] 7.4 g/dL 6.4-8.2 [facility] Triglyceride [Mass/Vol] 100 mg/dL <199 [facility] Comment on above: The drugs N-Acetylcy steine and Metamizole may falsely depress this assay.Serum Triglycerides Reference Interval Normal <150 mg/dL Borderline high 150 - 199 mg/dL High 200 - 499 mg/dL Very High > or = 500 mg/dL Direct bilirubinOrdered By: Farheen Alexander on 02-28-2023 Bilirubin.direct [Mass/Vol] 0.11 mg/dL 0.00-0.30 [facility] High density lipoprotein (HD L) measurementOrdered By: Farheen Alexander on 02-28-2023 Cholesterol in HDL (Body fld) [Mass/Vol] 49 mg/dL >40 [facility] Comment on above: The drugs N-Acetylcy steine and Metamizole may falsely depress this assay. Reference Range HDL <40 mg/dL Low HDL Cholesterol HDL >or= 60 mg/dL High HDL Cholesterol Laboratory - Chemistry and C hemistry - challengeOrdered By: Farheen Alexander on 02-28-2023 ALP [Catalytic activity/Vol] 84 U/L 45-117 [facility] ALT [Catalytic activity/Vol] 12 U/L 16-61 [facility] Globulin (S) [Mass/Vol] 4.0 g/dL 2.2-4.2 [facility] Low density lipoprotein (LDL ) cholesterol measurementOrdered By: Farheen Alexander on 02-28-2023 Cholesterol in LDL (Body fld) [Moles/Vol] 50 mg/dL 0-130 [facility] Thin prep Papanicolaou smear with manual screeningOrdered By: Farheen Alexander on 02-28-2023 Thin prep Papanicolaou smear with manual screening 3.4 g/dL 3.2-5.0 [facility] Thin prep Papanicolaou smear with manual screening 13 U/L 15-37 [facility] Very low density lipoprotein (VLDL) cholesterol measurementOrdered By: Farheen Alexander on 02-28-2023 Cholesterol in VLDL Calc [Moles/Vol] 20 mg/dL 5-40 [facility] Basophil percentageOrdered B y: Ezekiel Carrasco on 12-14-2022 Chloride [Moles/Vol] 104 mmol/L 98-107 [facility] Glucose [Mass/Vol] 125 mg/dL 74-106 [facility] Comment on above: Fasting Glucose resu lt from 100 to 125 mg/dL suggests IMPAIRED HOMEOSTASIS per A.D.A. criteria. Potassium [Moles/Vol] 4.6 mmol/L 3.5-5.1 [facility] Sodium [Moles/Vol] 137 mmol/L 136-145 [facility] WBC (Bld) [#/Vol] 7.9 10*3/uL 4.4-11.0 [facility] Blood erythrocytes count (nu mber/volume)Ordered By: Ezekiel Carrasco on 12-14-2022 RBC (Bld) [#/Vol] 4.24 10*6/uL 4.6-6.2 [facility] Blood hemoglobin measurement (mass/volume)Ordered By: Ezekiel Carrasco on 12-14-2022 Hemoglobin (Bld) [Mass/Vol] 11.4 g/dL 13.0-16.5 [facility] Blood platelet mean volumeOr dered By: Ezekiel Carrasco on 12-14-2022 Platelet mean volume (Bld) [Entitic vol] 9.0 fL 6.2-12.0 [facility] Determination of erythrocyte mean corpuscular volume (MCV)Ordered By: Ezekiel Carrasco on 12-14-2022 MCV (RBC) [Entitic vol] 90.1 fL 80-94 [facility] Hematocrit Auto (Bld) [Volum e fraction]Ordered By: Ezekiel Carrasco on 12-14-2022 Hematocrit (Bld) [Volume fraction] 38.2 % 40-54 [facility] Iron measurement (mass/mass) Ordered By: Ezekiel Carrasco on 12-14-2022 Iron (Unsp spec) [Mass/Mass] 31 ug/dL 65-175 [facility] Laboratory - Chemistry and C hemistry - challengeOrdered By: Ezekiel Carrasco on 12-14-2022 Natriuretic peptide B (Bld) [Mass/Vol] 71.3 pg/mL 0-100 [facility] CO2 [Moles/Vol] 29.0 mmol/L 21.0-32.0 [facility] Urea nitrogen/Creatinine [Mass ratio] 17.7 mg/mg 10-20 [facility] - Hematology and Cell countsOrdered By: Ezekiel Carrasco on 12-14-2022 Erythrocyte distribution width (RBC) [Entitic vol] 47.3 fL 35.1-43.9 [facility] Erythrocyte distribution width (RBC) [Ratio] 14.3 % 11.6-14.6 [facility] MCH (RBC) [Entitic mass] 26.9 pg 27.0-32.0 [facility] MCHC Auto (RBC) [Mass/Vol]Or dered By: Ezekiel Carrasco on 12-14-2022 MCHC (RBC) [Mass/Vol] 29.8 g/dL 32-36 [facility] No Panel InformationOrdered By: Ezekiel Carrasco on 12-14-2022 Estimated GFR (MDRD) Amer 53 mL/min >60 [facility] Comment on above: GFR Calc Estimated GFR (MDRD) Non-Af Amer 44 mL/min >60 [facility] Comment on above: Non- GFR Calc Parathyroid Hormone (Intact) 83.4 pg/mL 18.4-80.1 [facility] Vitamin D 25-Hydroxy 28.8 ng/mL [facility] Comment on above: Vitamin D 25(OH) Sta tus Range Deficiency <20 ng/mL (50nmol/L) Insufficiency 20 - 30 ng/mL (50 - 75 nmol/L) Sufficiency 30 - 100 ng/mL (75 - 250 nmol/L) Toxicity >100 ng/mL (>250 nmol/L) Platelets bldOrdered By: Agueda Carrasco on 12-14-2022 Platelets (Bld) [#/Vol] 278 10*3/uL 150-450 [facility] Serum or plasma calcium jamel urement (mass/volume)Ordered By: Ezekiel Carrasco on 12-14-2022 Calcium [Mass/Vol] 8.9 mg/dL 8.5-10.1 [facility] Serum or plasma creatinine m easurement (mass/volume)Ordered By: Ezekiel Cararsco on 12-14-2022 Creatinine [Mass/Vol] 1.64 mg/dL 0.70-1.30 [facility] Comment on above: The validity of the calculated GFR & GFRAA in patients over 70 years has not been determined. Clinical correlation is essential. Serum or plasma urea nitroge n measurement (mass/volume)Ordered By: Ezekiel Carrasco on 12-14-2022 Urea nitrogen [Mass/Vol] 29 mg/dL 7-18 [facility] Thin prep Papanicolaou smear with manual screeningOrdered By: Ezekiel Carrasco on 12-14-2022 Thin prep Papanicolaou smear with manual screening 4 5-15 [facility] Basophil percentageOrdered B y: Ezekiel Carrasco on 08-16-2022 Bilirubin [Mass/Vol] 0.30 mg/dL 0.20-1.00 [facility] Comment on above: For patients on eltr ombopag therapy, use of Dimension Oil Trough TBIL is not recommended. Chloride [Moles/Vol] 106 mmol/L 98-107 [facility] Glucose [Mass/Vol] 136 mg/dL 74-106 [facility] Comment on above: Fasting Glucose resu lt greater than or equal to 126 mg/dL suggests DIABETES MELLITUS per A.D.A. criteria. Potassium [Moles/Vol] 4.0 mmol/L 3.5-5.1 [facility] Protein [Mass/Vol] 7.0 g/dL 6.4-8.2 [facility] Sodium [Moles/Vol] 138 mmol/L 136-145 [facility] WBC (Bld) [#/Vol] 6.0 10*3/uL 4.4-11.0 [facility] Blood erythrocytes count (nu mber/volume)Ordered By: Ezekiel Carrasco on 08-16-2022 RBC (Bld) [#/Vol] 4.10 10*6/uL 4.6-6.2 [facility] Blood hemoglobin measurement (mass/volume)Ordered By: Ezekiel Carrasco on 08-16-2022 Hemoglobin (Bld) [Mass/Vol] 11.7 g/dL 13.0-16.5 [facility] Blood platelet mean volumeOr dered By: Ezekiel Carrasco on 08-16-2022 Platelet mean volume (Bld) [Entitic vol] 8.9 fL 6.2-12.0 [facility] Determination of erythrocyte mean corpuscular volume (MCV)Ordered By: Ezekiel Carrasco on 08-16-2022 MCV (RBC) [Entitic vol] 91.7 fL 80-94 [facility] Hematocrit Auto (Bld) [Volum e fraction]Ordered By: Ezekiel Carrasco on 08-16-2022 Hematocrit (Bld) [Volume fraction] 37.6 % 40-54 [facility] Hemoglobin in reticulocytes (mass per reticulocyte)Ordered By: Ezekiel Carrasco on 08-16-2022 Hemoglobin (Reticulocytes) [Entitic mass] 31.1 pg 30-35 [facility] Iron measurement (mass/mass) Ordered By: Ezekiel Carrasco on 08-16-2022 Iron (Unsp spec) [Mass/Mass] 45 ug/dL 65-175 [facility] Laboratory - Chemistry and C hemistry - challengeOrdered By: Ezekiel Carrasco on 08-16-2022 Natriuretic peptide B (Bld) [Mass/Vol] 196.1 pg/mL 0-100 [facility] ALP [Catalytic activity/Vol] 68 U/L 45-117 [facility] ALT [Catalytic activity/Vol] 11 U/L 16-61 [facility] CO2 [Moles/Vol] 29.0 mmol/L 21.0-32.0 [facility] Cobalamin (Vitamin B12) [Mass/Vol] 188 pg/mL 211-911 [facility] Globulin (S) [Mass/Vol] 3.7 g/dL 2.2-4.2 [facility] Urea nitrogen/Creatinine [Mass ratio] 12.7 mg/mg 10-20 [facility] Laboratory - Hematology and Cell countsOrdered By: Ezekiel Carrasco on 08-16-2022 Erythrocyte distribution width (RBC) [Entitic vol] 47.7 fL 35.1-43.9 [facility] Erythrocyte distribution width (RBC) [Ratio] 14.2 % 11.6-14.6 [facility] MCH (RBC) [Entitic mass] 28.5 pg 27.0-32.0 [facility] MCHC Auto (RBC) [Mass/Vol]Or dered By: Ezekiel Carrasco on 08-16-2022 MCHC (RBC) [Mass/Vol] 31.1 g/dL 32-36 [facility] No Panel InformationOrdered By: Ezekiel Carrasco on 08-16-2022 Estimated GFR (MDRD) Amer 53 mL/min >60 [facility] Comment on above: GFR Calc Estimated GFR (MDRD) Non-Af Amer 43 mL/min >60 [facility] Comment on above: Non- GFR Calc Immature Reticulocyte Fraction 8.60 % 3.00-15.90 [facility] Reticulocyte Count 0.92 % 0.5-1.5 [facility] Thyroid Stimulating Hormone (TSH) 1.68 uIU/mL 0.358-3.74 [facility] Total Iron Binding Capacity 323 ug/dL 250-450 [facility] Platelets bldOrdered By: Chr istopalexia Luna on 08-16-2022 Platelets (Bld) [#/Vol] 181 10*3/uL 150-450 [facility] Serum or plasma albumin jamel urement (mass/volume)Ordered By: Ezekiel Carrasco on 08-16-2022 Albumin [Mass/Vol] 3.3 g/dL 3.2-5.0 [facility] Serum or plasma albumin/glob ulin mass ratioOrdered By: Ezekiel Carrasco on 08-16-2022 Albumin/Globulin [Mass ratio] 0.9 {ratio} 0.9-2.4 [facility] Serum or plasma calcium jamel urement (mass/volume)Ordered By: Ezekiel Carrasco on 08-16-2022 Calcium [Mass/Vol] 8.6 mg/dL 8.5-10.1 [facility] Serum or plasma creatinine m easurement (mass/volume)Ordered By: Ezekiel Carrasco on 08-16-2022 Creatinine [Mass/Vol] 1.66 mg/dL 0.70-1.30 [facility] Comment on above: The validity of the calculated GFR & GFRAA in patients over 70 years has not been determined. Clinical correlation is essential. Serum or plasma ferritin ahmet surement (mass/volume)Ordered By: Ezekiel Carrasco on 08-16-2022 Ferritin [Mass/Vol] 49 ng/mL 26-388 [facility] Serum or plasma urea nitroge n measurement (mass/volume)Ordered By: Ezekiel Carrasco on 08-16-2022 Urea nitrogen [Mass/Vol] 21 mg/dL 7-18 [facility] Thin prep Papanicolaou smear with manual screeningOrdered By: Ezekiel Carrasco on 08-16-2022 Thin prep Papanicolaou smear with manual screening 11 U/L 15-37 [facility] Thin prep Papanicolaou smear with manual screening 3 5-15 [facility] Basophil percentageOrdered B y: Isela Kwok on 05-17-2022 Chloride [Moles/Vol] 107 mmol/L 98-107 [facility] Glucose [Mass/Vol] 99 mg/dL 74-106 [facility] Potassium [Moles/Vol] 4.3 mmol/L 3.5-5.1 [facility] Sodium [Moles/Vol] 136 mmol/L 136-145 [facility] Laboratory - Chemistry and C hemistry - challengeOrdered By: Isela Kwok on 05-17-2022 CO2 [Moles/Vol] 27.0 mmol/L 21.0-32.0 [facility] Urea nitrogen/Creatinine [Mass ratio] 16.3 mg/mg 10-20 [facility] No Panel InformationOrdered By: Isela Kwok on 05-17-2022 Estimated GFR (MDRD) Amer 53 mL/min >60 [facility] Comment on above: GFR Calc Estimated GFR (MDRD) Non-Af Amer 44 mL/min >60 [facility] Comment on above: Non- GFR Calc Serum or plasma calcium jamel urement (mass/volume)Ordered By: Isela Kwok on 05-17-2022 Calcium [Mass/Vol] 8.9 mg/dL 8.5-10.1 [facility] Serum or plasma creatinine m easurement (mass/volume)Ordered By: Isela Kwok on 05-17-2022 Creatinine [Mass/Vol] 1.66 mg/dL 0.70-1.30 [facility] Comment on above: The validity of the calculated GFR & GFRAA in patients over 70 years has not been determined. Clinical correlation is essential. Serum or plasma urea nitroge n measurement (mass/volume)Ordered By: Isela Kwok on 05-17-2022 Urea nitrogen [Mass/Vol] 27 mg/dL 7-18 [facility] Thin prep Papanicolaou smear with manual screeningOrdered By: Isela Kwok on 05-17-2022 Thin prep Papanicolaou smear with manual screening 2 5-15 [facility] Basophil percentageOrdered B y: Tc Subramanian on 04-02-2022 Chloride [Moles/Vol] 97 mmol/L 98-107 [facility] Glucose [Mass/Vol] 206 mg/dL 74-106 [facility] Comment on above: Glucose result great er than or equal to 200 mg/dLsuggests DIABETES MELLITUS per A.D.A. criteria. Potassium [Moles/Vol] 4.2 mmol/L 3.5-5.1 [facility] Sodium [Moles/Vol] 135 mmol/L 136-145 [facility] Laboratory - Chemistry and C hemistry - challengeOrdered By: Tc Subramanian on 04-02-2022 CO2 [Moles/Vol] 29.0 mmol/L 21.0-32.0 [facility] Urea nitrogen/Creatinine [Mass ratio] 22.0 mg/mg 10-20 [facility] No Panel InformationOrdered By: Tc Subramanian on 04-02-2022 Estimated GFR (MDRD) Amer 47 mL/min >60 [facility] Comment on above: GFR Calc Estimated GFR (MDRD) Non-Af Amer 39 mL/min >60 [facility] Comment on above: Non- GFR Calc Serum or plasma calcium jamel urement (mass/volume)Ordered By: Tc Subramanian on 04-02-2022 Calcium [Mass/Vol] 8.9 mg/dL 8.5-10.1 [facility] Serum or plasma creatinine m easurement (mass/volume)Ordered By: Tc Subramanian on 04-02-2022 Creatinine [Mass/Vol] 1.82 mg/dL 0.70-1.30 [facility] Comment on above: The validity of the calculated GFR & GFRAA in patients over 70 years has not been determined. Clinical correlation is essential. Serum or plasma urea nitroge n measurement (mass/volume)Ordered By: Tc Subramanian on 04-02-2022 Urea nitrogen [Mass/Vol] 40 mg/dL 7-18 [facility] Thin prep Papanicolaou smear with manual screeningOrdered By: Tc Subramanian on 04-02-2022 Thin prep Papanicolaou smear with manual screening 9 5-15 [facility] Basophil percentageOrdered B y: Tc Subramanian on 03-29-2022 Chloride [Moles/Vol] 98 mmol/L 98-107 [facility] Glucose [Mass/Vol] 101 mg/dL 74-106 [facility] Comment on above: Fasting Glucose resu lt from 100 to 125 mg/dL suggests IMPAIRED HOMEOSTASIS per A.D.A. criteria. Potassium [Moles/Vol] 5.3 mmol/L 3.5-5.1 [facility] Sodium [Moles/Vol] 135 mmol/L 136-145 [facility] Laboratory - Chemistry and C hemistry - challengeOrdered By: Tc Subramanian on 03-29-2022 CO2 [Moles/Vol] 32.0 mmol/L 21.0-32.0 [facility] Urea nitrogen/Creatinine [Mass ratio] 19.3 mg/mg 11-26 [facility] No Panel InformationOrdered By: Tc Subramanian on 03-29-2022 Estimated GFR (MDRD) Amer 30 mL/min >60 [facility] Comment on above: GFR Calc Estimated GFR (MDRD) Non-Af Amer 25 mL/min >60 [facility] Comment on above: Non- GFR Calc Serum or plasma calcium jamel urement (mass/volume)Ordered By: Tc Subramanian on 03-29-2022 Calcium [Mass/Vol] 8.7 mg/dL 8.5-10.1 [facility] Serum or plasma creatinine m easurement (mass/volume)Ordered By: Tc Subramanian on 03-29-2022 Creatinine [Mass/Vol] 2.69 mg/dL 0.70-1.30 [facility] Comment on above: The validity of the calculated GFR & GFRAA in patients over 70 years has not been determined. Clinical correlation is essential. Serum or plasma urea nitroge n measurement (mass/volume)Ordered By: Tc Subramanian on 03-29-2022 Urea nitrogen [Mass/Vol] 52 mg/dL - [facility] Thin prep Papanicolaou smear with manual screeningOrdered By: Tc Subramanian on 03-29-2022 Thin prep Papanicolaou smear with manual screening 5 06-21 [facility] Absolute lymphocyte countOrd ered By: Dr. Carrasco on 03-18-2022 Lymphocytes Auto (Unsp spec) [#/Vol] 1.42 10*3/uL 0.83-4.51 [facility] Basophil percentageOrdered B y: Dr. Carrasco on 03-18-2022 Basophils/100 WBC (Bld) 0.0 % 0-1 [facility] Bilirubin [Mass/Vol] 0.30 mg/dL 0.20-1.00 [facility] Comment on above: For patients on eltr ombopag therapy, use of Dimension Oil Trough TBIL is not recommended. Chloride [Moles/Vol] 98 mmol/L 98-107 [facility] Eosinophils/100 WBC (Bld) 0.0 % 0-5 [facility] Glucose [Mass/Vol] 333 mg/dL 74-106 [facility] Comment on above: Glucose result great er than or equal to 200 mg/dLsuggests DIABETES MELLITUS per A.D.A. criteria. Neutrophils (Bld) [#/Vol] 4.8 10*3/uL 2.0-7.7 [facility] Neutrophils/100 WBC (Bld) 72.7 % 47-70 [facility] Potassium [Moles/Vol] 3.7 mmol/L 3.5-5.1 [facility] Protein [Mass/Vol] 6.3 g/dL 6.4-8.2 [facility] Sodium [Moles/Vol] 140 mmol/L 136-145 [facility] WBC (Bld) [#/Vol] 6.6 10*3/uL 4.4-11.0 [facility] Blood erythrocytes count (nu mber/volume)Ordered By: Dr. Carrasco on 03-18-2022 RBC (Bld) [#/Vol] 3.19 10*6/uL 4.6-6.2 [facility] Blood hemoglobin measurement (mass/volume)Ordered By: Dr. Carrasco on 03-18-2022 Hemoglobin (Bld) [Mass/Vol] 9.1 g/dL 13.0-16.5 [facility] Blood lymphocytes/100 leukoc ytesOrdered By: Dr. Carrasco on 03-18-2022 Lymphocytes/100 WBC (Bld) 21.5 % 19-41 [facility] Blood monocytes/100 leukocyt esOrdered By: Dr. Carrasco on 03-18-2022 Monocytes/100 WBC (Bld) 5.0 % 0-10 [facility] Blood platelet mean volumeOr dered By: Dr. Carrasco on 03-18-2022 Platelet mean volume (Bld) [Entitic vol] 10.0 fL 6.2-12.0 [facility] Determination of erythrocyte mean corpuscular volume (MCV)Ordered By: Dr. Carrasco on 03-18-2022 MCV (RBC) [Entitic vol] 97.8 fL 80-94 [facility] Hematocrit Auto (Bld) [Volum e fraction]Ordered By: Dr. Carrasco on 03-18-2022 Hematocrit (Bld) [Volume fraction] 31.2 % 40-54 [facility] Laboratory - Chemistry and C hemistry - challengeOrdered By: Dr. Carrasco on 03-18-2022 ALP [Catalytic activity/Vol] 114 U/L 45-117 [facility] ALT [Catalytic activity/Vol] 39 U/L 16-61 [facility] CO2 [Moles/Vol] 33.0 mmol/L 21.0-32.0 [facility] Globulin (S) [Mass/Vol] 3.6 g/dL 2.2-4.2 [facility] Natriuretic peptide B (Bld) [Mass/Vol] 2375.1 pg/mL 0-100 [facility] Urea nitrogen/Creatinine [Mass ratio] 30.7 mg/mg 10-20 [facility] Laboratory - Hematology and Cell countsOrdered By: Dr. Carrasco on 03-18-2022 Erythrocyte distribution width (RBC) [Entitic vol] 53.3 fL 35.1-43.9 [facility] Erythrocyte distribution width (RBC) [Ratio] 14.6 % 11.6-14.6 [facility] Immature granulocytes/100 WBC (Bld) 0.800 % 0.0-0.9 [facility] Comment on above: IG% - Immature Granu locytes (promyelocytes, myelocytes and metamyelocytes) > 1% indicates that a LEFT SHIFT is Present. MCH (RBC) [Entitic mass] 28.5 pg 27.0-32.0 [facility] Nucleated RBC/100 WBC (Bld) [Ratio] 0 % 0-5 [facility] Auto (RBC) [Mass/Vol]Or dered By: Dr. Carrasco on 03-18-2022 MCHC (RBC) [Mass/Vol] 29.2 g/dL 32-36 [facility] No Panel InformationOrdered By: Dr. Carrasco on 03-18-2022 Estimated GFR (MDRD) Amer 58 mL/min >60 [facility] Comment on above: GFR Calc Estimated GFR (MDRD) Non-Af Amer 48 mL/min >60 [facility] Comment on above: Non- GFR Calc Platelets bldOrdered By: Dr. Carrasco on 03-18-2022 Platelets (Bld) [#/Vol] 131 10*3/uL 150-450 [facility] Serum or plasma albumin jamel urement (mass/volume)Ordered By: Dr. Carrasco on 03-18-2022 Albumin [Mass/Vol] 2.7 g/dL 3.2-5.0 [facility] Serum or plasma albumin/glob ulin mass ratioOrdered By: Dr. Carrasco on 03-18-2022 Albumin/Globulin [Mass ratio] 0.8 {ratio} 0.9-2.4 [facility] Serum or plasma calcium jamel urement (mass/volume)Ordered By: Dr. Carrasco on 03-18-2022 Calcium [Mass/Vol] 8.2 mg/dL 8.5-10.1 [facility] Serum or plasma creatinine m easurement (mass/volume)Ordered By: Dr. Carrasco on 03-18-2022 Creatinine [Mass/Vol] 1.53 mg/dL 0.70-1.30 [facility] Comment on above: The validity of the calculated GFR & GFRAA in patients over 70 years has not been determined. Clinical correlation is essential. Serum or plasma urea nitroge n measurement (mass/volume)Ordered By: Dr. Carrasco on 03-18-2022 Urea nitrogen [Mass/Vol] 47 mg/dL 7-18 [facility] Thin prep Papanicolaou smear with manual screeningOrdered By: Dr. Carrasco on 03-18-2022 Thin prep Papanicolaou smear with manual screening 22 U/L 15-37 [facility] Thin prep Papanicolaou smear with manual screening 9 5-15 [facility] Absolute lymphocyte countOrd ered By: Kasey Arenas on 03-10-2022 Lymphocytes Auto (Unsp spec) [#/Vol] 1.66 10*3/uL 0.83-4.51 [facility] Basophil percentageOrdered B y: Kasey Arenas on 03-10-2022 Basophils/100 WBC (Bld) 0.0 % 0-1 [facility] Bilirubin [Mass/Vol] 0.50 mg/dL 0.20-1.00 [facility] Comment on above: For patients on eltr ombopag therapy, use of Dimension Oil Trough TBIL is not recommended. Chloride [Moles/Vol] 102 mmol/L 98-107 [facility] Eosinophils/100 WBC (Bld) 0.3 % 0-5 [facility] Glucose [Mass/Vol] 133 mg/dL 74-106 [facility] Comment on above: Fasting Glucose resu lt greater than or equal to 126 mg/dL suggests DIABETES MELLITUS per A.D.A. criteria. Neutrophils (Bld) [#/Vol] 4.1 10*3/uL 2.0-7.7 [facility] Neutrophils/100 WBC (Bld) 65.1 % 47-70 [facility] Potassium [Moles/Vol] 4.5 mmol/L 3.5-5.1 [facility] Protein [Mass/Vol] 6.2 g/dL 6.4-8.2 [facility] Sodium [Moles/Vol] 141 mmol/L 136-145 [facility] WBC (Bld) [#/Vol] 6.3 10*3/uL 4.4-11.0 [facility] Blood erythrocytes count (nu mber/volume)Ordered By: Kasey Arenas on 03-10-2022 RBC (Bld) [#/Vol] 3.24 10*6/uL 4.6-6.2 [facility] Blood hemoglobin measurement (mass/volume)Ordered By: Kasey Arenas on 03-10-2022 Hemoglobin (Bld) [Mass/Vol] 9.3 g/dL 13.0-16.5 [facility] Blood lymphocytes/100 leukoc ytesOrdered By: Kasey Arenas on 03-10-2022 Lymphocytes/100 WBC (Bld) 26.3 % 19-41 [facility] Blood monocytes/100 leukocyt esOrdered By: Kasey Arenas on 03-10-2022 Monocytes/100 WBC (Bld) 7.8 % 0-10 [facility] Blood platelet mean volumeOr dered By: Kasey Arenas on 03-10-2022 Platelet mean volume (Bld) [Entitic vol] 9.9 fL 6.2-12.0 [facility] Determination of erythrocyte mean corpuscular volume (MCV)Ordered By: Kasey Arenas on 03-10-2022 MCV (RBC) [Entitic vol] 99.1 fL 80-94 [facility] Hematocrit Auto (Bld) [Volum e fraction]Ordered By: Kasey Arenas on 03-10-2022 Hematocrit (Bld) [Volume fraction] 32.1 % 40-54 [facility] Laboratory - Chemistry and C hemistry - challengeOrdered By: Kasey Arenas on 03-10-2022 ALP [Catalytic activity/Vol] 144 U/L 45-117 [facility] ALT [Catalytic activity/Vol] 44 U/L 16-61 [facility] CO2 [Moles/Vol] 33.0 mmol/L 21.0-32.0 [facility] Globulin (S) [Mass/Vol] 3.4 g/dL 2.2-4.2 [facility] Urea nitrogen/Creatinine [Mass ratio] 31.5 mg/mg 10-20 [facility] Laboratory - Hematology and Cell countsOrdered By: Kasey Arenas on 03-10-2022 Erythrocyte distribution width (RBC) [Entitic vol] 56.9 fL 35.1-43.9 [facility] Erythrocyte distribution width (RBC) [Ratio] 15.4 % 11.6-14.6 [facility] Immature granulocytes/100 WBC (Bld) 0.500 % 0.0-0.9 [facility] Comment on above: IG% - Immature Granu locytes (promyelocytes, myelocytes and metamyelocytes) > 1% indicates that a LEFT SHIFT is Present. MCH (RBC) [Entitic mass] 28.7 pg 27.0-32.0 [facility] Nucleated RBC/100 [facility]] 0 [facility] [Mass/Vol]Or dered By: Kasey Arenas on 03-10-2022 MCHC (RBC) [Mass/Vol] 29.0 g/dL 32-36 [facility] No Panel InformationOrdered By: Kasey Arenas on 03-10-2022 Estimated GFR (MDRD) Amer 61 mL/min >60 [facility] Comment on above: GFR Calc Estimated GFR (MDRD) Non-Af Amer 50 mL/min >60 [facility] Comment on above: Non- GFR Calc Platelets bldOrdered By: Shell Arenas on 03-10-2022 Platelets (Bld) [#/Vol] 109 10*3/uL 150-450 [facility] Serum or plasma albumin jamel urement (mass/volume)Ordered By: Kasey Arenas on 03-10-2022 Albumin [Mass/Vol] 2.8 g/dL 3.2-5.0 [facility] Serum or plasma albumin/glob ulin mass ratioOrdered By: Kasey Arenas on 03-10-2022 Albumin/Globulin [Mass ratio] 0.8 {ratio} 0.9-2.4 [facility] Serum or plasma calcium jamel urement (mass/volume)Ordered By: Kasey Arenas on 03-10-2022 Calcium [Mass/Vol] 8.1 mg/dL 8.5-10.1 [facility] Serum or plasma creatinine m easurement (mass/volume)Ordered By: Kasey Arenas on 03-10-2022 Creatinine [Mass/Vol] 1.46 mg/dL 0.70-1.30 [facility] Comment on above: The validity of the calculated GFR & GFRAA in patients over 70 years has not been determined. Clinical correlation is essential. Serum or plasma urea nitroge n measurement (mass/volume)Ordered By: Kasey Arenas on 03-10-2022 Urea nitrogen [Mass/Vol] 46 mg/dL 7-18 [facility] Thin prep Papanicolaou smear with manual screeningOrdered By: Kasey Arenas on 03-10-2022 Thin prep Papanicolaou smear with manual screening 36 U/L 15-37 [facility] Thin prep Papanicolaou smear with manual screening 6 5-15 [facility] Bacteria identified Respirat ory culture Nom (Unsp spec)Ordered By: Dr. Banks on 03-06-2022 Respiratory Culture Stenotrophomonas maltophilia [facility] Absolute lymphocyte countOrd ered By: Dr. Banks on 03-04-2022 Lymphocytes Auto (Unsp spec) [#/Vol] 0.84 10*3/uL 0.83-4.51 [facility] Basophil percentageOrdered B y: Dr. Banks on 03-04-2022 Basophils/100 WBC (Bld) 0.0 % 0-1 [facility] Chloride [Moles/Vol] 104 mmol/L 98-107 [facility] Eosinophils/100 WBC (Bld) 0.0 % 0-5 [facility] Glucose [Mass/Vol] 223 mg/dL 74-106 [facility] Comment on above: Glucose result great er than or equal to 200 mg/dLsuggests DIABETES MELLITUS per A.D.A. criteria. Neutrophils (Bld) [#/Vol] 3.8 10*3/uL 2.0-7.7 [facility] Neutrophils/100 WBC (Bld) 78.5 % 47-70 [facility] Potassium [Moles/Vol] 5.2 mmol/L 3.5-5.1 [facility] Sodium [Moles/Vol] 139 mmol/L 136-145 [facility] WBC (Bld) [#/Vol] 4.9 10*3/uL 4.4-11.0 [facility] Blood erythrocytes count (nu mber/volume)Ordered By: Dr. Banks on 03-04-2022 RBC (Bld) [#/Vol] 2.99 10*6/uL 4.6-6.2 [facility] Blood hemoglobin measurement (mass/volume)Ordered By: Dr. Banks on 03-04-2022 Hemoglobin (Bld) [Mass/Vol] 8.8 g/dL 13.0-16.5 [facility] Blood lymphocytes/100 leukoc ytesOrdered By: Dr. Banks on 03-04-2022 Lymphocytes/100 WBC (Bld) 17.2 % 19-41 [facility] Blood monocytes/100 leukocyt esOrdered By: Dr. Banks on 03-04-2022 Monocytes/100 WBC (Bld) 3.5 % 0-10 [facility] Blood platelet mean volumeOr dered By: Dr. Banks on 03-04-2022 Platelet mean volume (Bld) [Entitic vol] 10.2 fL 6.2-12.0 [facility] Determination of erythrocyte mean corpuscular volume (MCV)Ordered By: Dr. Banks on 03-04-2022 MCV (RBC) [Entitic vol] 100.7 fL 80-94 [facility] Hematocrit Auto (Bld) [Volum e fraction]Ordered By: Dr. Banks on 03-04-2022 Hematocrit (Bld) [Volume fraction] 30.1 % 40-54 [facility] - Chemistry and C hemistry - challengeOrdered By: Dr. Banks on 03-04-2022 CO2 [Moles/Vol] 28.0 mmol/L 21.0-32.0 [facility] Urea nitrogen/Creatinine [Mass ratio] 24.2 mg/mg 10-20 [facility] - Hematology and Cell countsOrdered By: Dr. Banks on 03-04-2022 Erythrocyte distribution width (RBC) [Entitic vol] 63.7 fL 35.1-43.9 [facility] Erythrocyte distribution width (RBC) [Ratio] 17.0 % 11.6-14.6 [facility] Immature granulocytes/100 WBC (Bld) 0.800 % 0.0-0.9 [facility] Comment on above: IG% - Immature Granu locytes (promyelocytes, myelocytes and metamyelocytes) > 1% indicates that a LEFT SHIFT is Present. MCH (RBC) [Entitic mass] 29.4 pg 27.0-32.0 [facility] Nucleated RBC/100 WBC (Bld) [Ratio] 0 % 0-5 [facility] [facility] MCHC Auto (RBC) [Mass/Vol]Or dered By: Dr. Banks on 03-04-2022 MCHC (RBC) [Mass/Vol] 29.2 g/dL 32-36 [facility] No Panel InformationOrdered By: Dr. Banks on 03-04-2022 Estimated Creatinine Clearance Calc 25.11 ml/min [facility] Estimated GFR (MDRD) Amer 34 mL/min >60 [facility] Comment on above: GFR Calc Estimated GFR (MDRD) Non-Af Amer 28 mL/min >60 [facility] Comment on above: Non- GFR Calc Platelets bldOrdered By: Dr. Banks on 03-04-2022 Platelets (Bld) [#/Vol] 104 10*3/uL 150-450 [facility] Serum or plasma calcium jamel urement (mass/volume)Ordered By: Dr. Banks on 03-04-2022 Calcium [Mass/Vol] 8.1 mg/dL 8.5-10.1 [facility] Serum or plasma creatinine m easurement (mass/volume)Ordered By: Dr. Banks on 03-04-2022 Creatinine [Mass/Vol] 2.40 mg/dL 0.70-1.30 [facility] Comment on above: The validity of the calculated GFR & GFRAA in patients over 70 years has not been determined. Clinical correlation is essential. Serum or plasma urea nitroge n measurement (mass/volume)Ordered By: Dr. Banks on 03-04-2022 Urea nitrogen [Mass/Vol] 58 mg/dL 7-18 [facility] Thin prep Papanicolaou smear with manual screeningOrdered By: Dr. Banks on 03-04-2022 Thin prep Papanicolaou smear with manual screening 7 5-15 [facility] Basophil percentageOrdered B y: Dr. Banks on 03-03-2022 Basophil percentage 4.9 mg/dL 2.5-4.9 [facility] Bilirubin [Mass/Vol] 0.60 mg/dL 0.20-1.00 [facility] Comment on above: For patients on eltr ombopag therapy, use of Dimension Oil Trough TBIL is not recommended. Protein [Mass/Vol] 6.8 g/dL 6.4-8.2 [facility] Blood platelet adequacy dete ction by light microscopyOrdered By: Dr. Banks on 03-03-2022 Platelets LM Ql (Bld) MOD DEC ADEQ [facility] Gram stain for investigation of transfusion reactionOrdered By: Dr. Banks on 01-25-2023 Microscopic observation Gram stain Nom (Unsp spec) [facility] Laboratory - Chemistry and C hemistry - challengeOrdered By: Dr. Banks on 03-03-2022 ALP [Catalytic activity/Vol] 138 U/L 45-117 [facility] ALT [Catalytic activity/Vol] 15 U/L 16-61 [facility] Globulin (S) [Mass/Vol] 4.2 g/dL 2.2-4.2 [facility] Magnesium [Mass/Vol] 1.9 mg/dL 1.6-2.6 [facility] - Hematology and Cell countsOrdered By: Dr. Banks on 03-03-2022 Anisocytosis Ql (Bld) 1+ [facility] Macrocytes detectionOrdered By: Dr. Banks on 03-03-2022 Macrocytes Ql (Bld) 1+ [facility] No Panel InformationOrdered By: Dr. Banks on 03-03-2022 Thyroid Stimulating Hormone (TSH) 2.41 uIU/mL 0.358-3.74 [facility] Review by pathologistOrdered By: Dr. Banks on 03-03-2022 Pathologist review Alvin (Unsp spec) [Interp] Reviewed [facility] Comment on above: Previous reported re sult: Suyapa wagner Edited by: [email or web address] on 03/04/22:1039Pancytopenia.Leukopenia Macrocytic anemia.ThrombocytopeniaClinical correlation necessary.Keith Gates M.D. 03/04/22 AMENDED REPORT 03/04/22 1039 PATH REV previously reported as: Suyapa wagner Serum or plasma albumin jamel urement (mass/volume)Ordered By: Dr. Banks on 03-03-2022 Albumin [Mass/Vol] 2.6 g/dL 3.2-5.0 [facility] Serum or plasma albumin/glob ulin mass ratioOrdered By: Dr. Banks on 03-03-2022 Albumin/Globulin [Mass ratio] 0.6 {ratio} 0.9-2.4 [facility] Thin prep Papanicolaou smear with manual screeningOrdered By: Dr. Banks on 03-03-2022 Thin prep Papanicolaou smear with manual screening 18 U/L 15-37 [facility] Urine Legionella pneumophila antigen detectionOrdered By: Dr. Banks on 03-03-2022 L. pneumophila Ag Ql (U) [facility] Absolute lymphocyte countOrd ered By: Dr. Garland on 03-02-2022 Lymphocytes Auto (Unsp spec) [#/Vol] 1.47 10*3/uL 0.83-4.51 [facility] Basophil percentageOrdered B y: Dr. Garland on 03-02-2022 Basophils/100 WBC (Bld) 0.0 % 0-1 [facility] Chloride [Moles/Vol] 106 mmol/L 98-107 [facility] Eosinophils/100 WBC (Bld) 0.2 % 0-5 [facility] Glucose [Mass/Vol] 112 mg/dL 74-106 [facility] Comment on above: Fasting Glucose resu lt from 100 to 125 mg/dL suggests IMPAIRED HOMEOSTASIS per A.D.A. criteria. Neutrophils (Bld) [#/Vol] 3.6 10*3/uL 2.0-7.7 [facility] Neutrophils/100 WBC (Bld) 66.7 % 47-70 [facility] Potassium [Moles/Vol] 4.5 mmol/L 3.5-5.1 [facility] Sodium [Moles/Vol] 141 mmol/L 136-145 [facility] WBC (Bld) [#/Vol] 5.3 10*3/uL 4.4-11.0 [facility] Blood erythrocytes count (nu mber/volume)Ordered By: Dr. Garland on 03-02-2022 RBC (Bld) [#/Vol] 4.06 10*6/uL 4.6-6.2 [facility] Blood hemoglobin measurement (mass/volume)Ordered By: Dr. Garland on 03-02-2022 Hemoglobin (Bld) [Mass/Vol] 12.0 g/dL 13.0-16.5 [facility] Blood lymphocytes/100 leukoc ytesOrdered By: Dr. Garland on 03-02-2022 Lymphocytes/100 WBC (Bld) 27.6 % 19-41 [facility] Blood monocytes/100 leukocyt esOrdered By: Dr. Garland on 03-02-2022 Monocytes/100 WBC (Bld) 5.1 % 0-10 [facility] Blood platelet mean volumeOr dered By: Dr. Garland on 03-02-2022 Platelet mean volume (Bld) [Entitic vol] 10.3 fL 6.2-12.0 [facility] Determination of erythrocyte mean corpuscular volume (MCV)Ordered By: Dr. Garland on 03-02-2022 MCV (RBC) [Entitic vol] 100.2 fL 80-94 [facility] Hematocrit Auto (Bld) [Volum e fraction]Ordered By: Dr. Garland on 03-02-2022 Hematocrit (Bld) [Volume fraction] 40.7 % 40-54 [facility] Influenza virus A and B and SARS-CoV-2 (COVID-19) Ag panel - Upper respiratory specimOrdered By: Dr. Garland on 03-02-2022 SARS-CoV-2 (COVID-19) RNA AMBER+probe Ql (Resp) [facility] Laboratory - Chemistry and C hemistry - challengeOrdered By: Dr. Garland on 03-02-2022 CO2 [Moles/Vol] 29.0 mmol/L 21.0-32.0 [facility] Urea nitrogen/Creatinine [Mass ratio] 19.6 mg/mg 10-20 [facility] - Hematology and Cell countsOrdered By: Dr. Garland on 03-02-2022 Anisocytosis Ql (Bld) 1+ [facility] Erythrocyte distribution width (RBC) [Entitic vol] 65.8 fL 35.1-43.9 [facility] Erythrocyte distribution width (RBC) [Ratio] 17.5 % 11.6-14.6 [facility] Immature granulocytes/100 WBC (Bld) 0.400 % 0.0-0.9 [facility] Comment on above: IG% - Immature Granu locytes (promyelocytes, myelocytes and metamyelocytes) > 1% indicates that a LEFT SHIFT is Present. MCH (RBC) [Entitic mass] 29.6 pg 27.0-32.0 [facility] Nucleated RBC/100 WBC (Bld) [Ratio] 0 % 0-5 [facility] MCHC Auto (RBC) [Mass/Vol]Or dered By: Dr. Garland on 03-02-2022 MCHC (RBC) [Mass/Vol] 29.5 g/dL 32-36 [facility] No Panel InformationOrdered By: Dr. Banks on 03-02-2022 Methicillin-Resist S.aureus DNA PCR Negative Negative [facility] No Panel InformationOrdered By: Dr. Garland on 03-02-2022 Estimated Creatinine Clearance Calc 26.90 ml/min [facility] Estimated GFR (MDRD) Amer 37 mL/min >60 [facility] Comment on above: GFR Calc Estimated GFR (MDRD) Non-Af Amer 31 mL/min >60 [facility] Comment on above: Non- GFR Calc Troponin I High Sensitivity 56 pg/mL 3.0-78.0 [facility] Comment on above: Please Note: New Mitali t Units and Gender Specific Reference Ranges. For more information see Policy Stat Procedure Oil Trough High Sensitivity Troponin (TNIH) and attachments. Platelets bldOrdered By: Dr. Garland on 03-02-2022 Platelets (Bld) [#/Vol] 117 10*3/uL 150-450 [facility] Serum or plasma calcium jamel urement (mass/volume)Ordered By: Dr. Garland on 03-02-2022 Calcium [Mass/Vol] 8.5 mg/dL 8.5-10.1 [facility] Serum or plasma creatinine m easurement (mass/volume)Ordered By: Dr. Garland on 03-02-2022 Creatinine [Mass/Vol] 2.24 mg/dL 0.70-1.30 [facility] Comment on above: The validity of the calculated GFR & GFRAA in patients over 70 years has not been determined. Clinical correlation is essential. Serum or plasma urea nitroge n measurement (mass/volume)Ordered By: Dr. Garland on 03-02-2022 Urea nitrogen [Mass/Vol] 44 mg/dL 7-18 [facility] Thin prep Papanicolaou smear with manual screeningOrdered By: Dr. Garland on 03-02-2022 Thin prep Papanicolaou smear with manual screening 6 5-15 [facility] Basophil percentageOrdered B y: Dr. Carrasco on 02-25-2022 Chloride [Moles/Vol] 107 mmol/L 98-107 [facility] Glucose [Mass/Vol] 219 mg/dL 74-106 [facility] Comment on above: Glucose result great er than or equal to 200 mg/dLsuggests DIABETES MELLITUS per A.D.A. criteria. Potassium [Moles/Vol] 4.2 mmol/L 3.5-5.1 [facility] Sodium [Moles/Vol] 143 mmol/L 136-145 [facility] WBC (Bld) [#/Vol] 5.0 10*3/uL 4.4-11.0 [facility] Blood erythrocytes count (nu mber/volume)Ordered By: Dr. Carrasco on 02-25-2022 RBC (Bld) [#/Vol] 3.27 10*6/uL 4.6-6.2 [facility] Blood hemoglobin measurement (mass/volume)Ordered By: Dr. Carrasco on 02-25-2022 Hemoglobin (Bld) [Mass/Vol] 9.9 g/dL 13.0-16.5 [facility] Blood manual differential co mment interpretation (narrative result)Ordered By: Dr. Carrasco on 02-25-2022 Manual differential comment Alvin (Bld) [Interp] See comment [facility] Comment on above: THROMBOCYTOPENIA MOD . DECREASEDANISOCYTOSIS RARE Blood platelet mean volumeOr dered By: Dr. Carrasco on 02-25-2022 Platelet mean volume (Bld) [Entitic vol] 10.3 fL 6.2-12.0 [facility] Determination of erythrocyte mean corpuscular volume (MCV)Ordered By: Dr. Carrasco on 02-25-2022 MCV (RBC) [Entitic vol] 103.7 fL 80-94 [facility] Hematocrit Auto (Bld) [Volum e fraction]Ordered By: Dr. Carrasco on 02-25-2022 Hematocrit (Bld) [Volume fraction] 33.9 % 40-54 [facility] Hemoglobin in reticulocytes (mass per reticulocyte)Ordered By: Dr. Carrasco on 02-25-2022 Hemoglobin (Reticulocytes) [Entitic mass] 27.9 pg 30-35 [facility] Iron measurement (mass/mass) Ordered By: Dr. Carrasco on 02-25-2022 Iron (Unsp spec) [Mass/Mass] 37 ug/dL 65-175 [facility] Laboratory - Chemistry and C hemistry - challengeOrdered By: Dr. Carrasco on 02-25-2022 CO2 [Moles/Vol] 29.0 mmol/L 21.0-32.0 [facility] Urea nitrogen/Creatinine [Mass ratio] 20.0 mg/mg 10-20 [facility] - Hematology and Cell countsOrdered By: Dr. Carrasco on 02-25-2022 Erythrocyte distribution width (RBC) [Entitic vol] 72.1 fL 35.1-43.9 [facility] Erythrocyte distribution width (RBC) [Ratio] 19.0 % 11.6-14.6 [facility] MCH (RBC) [Entitic mass] 30.3 pg 27.0-32.0 [facility] MCHC Auto (RBC) [Mass/Vol]Or dered By: Dr. Carrasco on 02-25-2022 MCHC (RBC) [Mass/Vol] 29.2 g/dL 32-36 [facility] No Panel InformationOrdered By: Dr. Carrasco on 02-25-2022 Estimated GFR (MDRD) Amer 33 mL/min >60 [facility] Comment on above: GFR Calc Estimated GFR (MDRD) Non-Af Amer 27 mL/min >60 [facility] Comment on above: Non- GFR Calc Immature Platelet Fraction 5.5 % 1.0-7.9 [facility] Comment on above: Low PLT + Low IPF kinney ggest a bone marrow production disorderLow PLT + high IPF suggests peripheral destruction(e.g.ITP, TTP, HIT, DIC, autoimmune) or bone marrow recoveryTrending of serial IPF measurements is recommended when evaluating for bone marrow responesValue above normal range indicates an increase in RBC cellular response from bone marrow. Immature Reticulocyte Fraction 18.90 % 3.00-15.90 [facility] Reticulocyte Count 4.10 % 0.5-1.5 [facility] Total Iron Binding Capacity 280 ug/dL 250-450 [facility] Platelets bldOrdered By: Dr. Carrasco on 02-25-2022 Platelets (Bld) [#/Vol] 86 10*3/uL 150-450 [facility] Serum or plasma calcium jamel urement (mass/volume)Ordered By: Dr. Carrasco on 02-25-2022 Calcium [Mass/Vol] 8.2 mg/dL 8.5-10.1 [facility] Serum or plasma creatinine m easurement (mass/volume)Ordered By: Dr. Carrasco on 02-25-2022 Creatinine [Mass/Vol] 2.50 mg/dL 0.70-1.30 [facility] Comment on above: The validity of the calculated GFR & GFRAA in patients over 70 years has not been determined. Clinical correlation is essential. Serum or plasma ferritin ahmet surement (mass/volume)Ordered By: Dr. Carrasco on 02-25-2022 Ferritin [Mass/Vol] 232 ng/mL 26-388 [facility] Serum or plasma urea nitroge n measurement (mass/volume)Ordered By: Dr. Carrasco on 02-25-2022 Urea nitrogen [Mass/Vol] 50 mg/dL 7-18 [facility] Thin prep Papanicolaou smear with manual screeningOrdered By: Dr. Carrasco on 02-25-2022 Thin prep Papanicolaou smear with manual screening 7 5-15 [facility] Culture, urineOrdered By: Dr Truong Carrasco on 01-28-2022 Bacteria identified Cx Nom (U) Culture exhibits no growth. [facility] Basophil percentageOrdered B y: Dr. Carrasco on 01-25-2022 Basophil percentage 0-5 SEEN /hpf 0-5 [facility] Bilirubin Test strip Ql (U)O rdered By: Dr. Carrasco on 01-25-2022 Bilirubin Ql (U) Negative Negative [facility] Ketones Test strip Ql (U)Ord ered By: Dr. Carrasco on 01-25-2022 Ketones Ql (U) Negative Negative [facility] Mucus LM Ql (Urine sed)Order ed By: Dr. Carrasco on 01-25-2022 Mucus Ql (Urine sed) 0 SEEN /hpf [facility] Nitrite Test strip Ql (U)Ord ered By: Dr. Carrasco on 01-25-2022 Nitrite Ql (U) Negative Negative [facility] Protein Test strip Ql (U)Ord ered By: Dr. Carrasco on 01-25-2022 Protein Ql (U) 30 mg/dl Negative [facility] Squamous epithelial cells de tection in urine sediment by light microscopyOrdered By: Dr. Carrasco on 01-25-2022 Epithelial cells.squamous LM Ql (Urine sed) 0 SEEN /hpf 0-5 [facility] Urine blood detectionOrdered By: Dr. Carrasco on 01-25-2022 RBC Ql (U) 250 /ul Negative [facility] RBC Ql (U) 10-25 SEEN /hpf 0-5 [facility] Urine clarityOrdered By: Dr. Carrasco on 01-25-2022 Clarity (U) Clear Clear [facility] Urine color determinationOrd ered By: Dr. Carrasco on 01-25-2022 Color (U) Yellow Yellow [facility] Urine glucose detectionOrder ed By: Dr. Carrasco on 01-25-2022 Glucose Ql (U) Normal mg/dl Normal [facility] Urine leukocyte esterase det ection by dipstickOrdered By: Dr. Carrasco on 01-25-2022 Leukocyte esterase Test strip Ql (U) Negative Negative [facility] Urine pHOrdered By: Dr. Connie leon on 01-25-2022 pH (U) 5.0 [pH] 5.0 - 8.0 [facility] Urine sediment bacteria coun t by microscopy (number/high power field)Ordered By: Dr. Carrasco on 01-25-2022 Bacteria LM.HPF (Urine sed) [#/Area] 0 /[HPF] None Seen [facility] Urine specific gravity measu rementOrdered By: Dr. Carrasco on 01-25-2022 Specific gravity (U) [Rel density] 1.015 1.002-1.030 [facility] Urobilinogen Auto test strip Ql (U)Ordered By: Dr. Carrasco on 01-25-2022 Urobilinogen Ql (U) Normal mg/dl Normal [facility] Basophil percentageOrdered B y: Sherry Ahn on 01-21-2022 Bilirubin [Mass/Vol] 0.50 mg/dL 0.20-1.00 [facility] Comment on above: For patients on eltr ombopag therapy, use of Dimension Oil Trough TBIL is not recommended. Chloride [Moles/Vol] 103 mmol/L 98-107 [facility] Glucose [Mass/Vol] 111 mg/dL 74-106 [facility] Comment on above: Fasting Glucose resu lt from 100 to 125 mg/dL suggests IMPAIRED HOMEOSTASIS per A.D.A. criteria. Potassium [Moles/Vol] 3.7 mmol/L 3.5-5.1 [facility] Protein [Mass/Vol] 6.8 g/dL 6.4-8.2 [facility] Sodium [Moles/Vol] 140 mmol/L 136-145 [facility] Laboratory - Chemistry and C hemistry - challengeOrdered By: Sherry Ahn on 01-21-2022 ALP [Catalytic activity/Vol] 155 U/L 45-117 [facility] ALT [Catalytic activity/Vol] 18 U/L 16-61 [facility] CO2 [Moles/Vol] 29.0 mmol/L 21.0-32.0 [facility] Globulin (S) [Mass/Vol] 4.3 g/dL 2.2-4.2 [facility] Urea nitrogen/Creatinine [Mass ratio] 12.2 mg/mg 10-20 [facility] No Panel InformationOrdered By: Sherry Ahn on 01-21-2022 Estimated GFR (MDRD) Amer 27 mL/min >60 [facility] Comment on above: GFR Calc Estimated GFR (MDRD) Non-Af Amer 23 mL/min >60 [facility] Comment on above: Non- GFR Calc Serum or plasma albumin jamel urement (mass/volume)Ordered By: Sherry Ahn on 01-21-2022 Albumin [Mass/Vol] 2.5 g/dL 3.2-5.0 [facility] Serum or plasma albumin/glob ulin mass ratioOrdered By: Sherry Ahn on 01-21-2022 Albumin/Globulin [Mass ratio] 0.6 {ratio} 0.9-2.4 [facility] Serum or plasma calcium jamel urement (mass/volume)Ordered By: Sherry Ahn on 01-21-2022 Calcium [Mass/Vol] 8.2 mg/dL 8.5-10.1 [facility] Serum or plasma creatinine m easurement (mass/volume)Ordered By: Sherry Ahn on 01-21-2022 Creatinine [Mass/Vol] 2.94 mg/dL 0.70-1.30 [facility] Comment on above: The validity of the calculated GFR & GFRAA in patients over 70 years has not been determined. Clinical correlation is essential. Serum or plasma urea nitroge n measurement (mass/volume)Ordered By: Sherry Ahn on 01-21-2022 Urea nitrogen [Mass/Vol] 36 mg/dL 7-18 [facility] Thin prep Papanicolaou smear with manual screeningOrdered By: Sherry Ahn on 01-21-2022 Thin prep Papanicolaou smear with manual screening 22 U/L 15-37 [facility] Thin prep Papanicolaou smear with manual screening 8 5-15 [facility] Whole blood hemoglobin A1c/t otal hemoglobin ratio (mass fraction)Ordered By: Sherry Ahn on 01-21-2022 HbA1c (Bld) [Mass fraction] 5.9 % 3.8-5.6 [facility] Comment on above: Normal < 5.7 % Predi abetic 5.7 - 6.4 % Diabetic >or= 6.5 % Please note range changes. Absolute lymphocyte countOrd ered By: Dr. Carrasco on 01-06-2022 Lymphocytes Auto (Unsp spec) [#/Vol] 2.01 10*3/uL 0.83-4.51 [facility] Basophil percentageOrdered B y: Dr. Carrasco on 01-06-2022 Basophils/100 WBC (Bld) 0.2 % 0-1 [facility] Eosinophils/100 WBC (Bld) 0.2 % 0-5 [facility] Neutrophils (Bld) [#/Vol] 4.1 10*3/uL 2.0-7.7 [facility] Neutrophils/100 WBC (Bld) 61.0 % 47-70 [facility] WBC (Bld) [#/Vol] 6.6 10*3/uL 4.4-11.0 [facility] Basophil percentageOrdered B y: Tc Subramanian on 01-06-2022 Chloride [Moles/Vol] 101 mmol/L 98-107 [facility] Glucose [Mass/Vol] 110 mg/dL 74-106 [facility] Comment on above: Fasting Glucose resu lt from 100 to 125 mg/dL suggests IMPAIRED HOMEOSTASIS per A.D.A. criteria. Potassium [Moles/Vol] 5.0 mmol/L 3.5-5.1 [facility] Sodium [Moles/Vol] 135 mmol/L 136-145 [facility] Blood erythrocytes count (nu mber/volume)Ordered By: Dr. Carrasco on 01-06-2022 RBC (Bld) [#/Vol] 3.62 10*6/uL 4.6-6.2 [facility] Blood hemoglobin measurement (mass/volume)Ordered By: Dr. Carrasco on 01-06-2022 Hemoglobin (Bld) [Mass/Vol] 10.3 g/dL 13.0-16.5 [facility] Blood lymphocytes/100 leukoc ytesOrdered By: Dr. Carrasco on 01-06-2022 Lymphocytes/100 WBC (Bld) 30.4 % 19-41 [facility] Blood monocytes/100 leukocyt esOrdered By: Dr. Carrasco on 01-06-2022 Monocytes/100 WBC (Bld) 7.7 % 0-10 [facility] Blood platelet mean volumeOr dered By: Dr. Carrasco on 01-06-2022 Platelet mean volume (Bld) [Entitic vol] 9.1 fL 6.2-12.0 [facility] Determination of erythrocyte mean corpuscular volume (MCV)Ordered By: Dr. Carrasco on 01-06-2022 MCV (RBC) [Entitic vol] 90.6 fL 80-94 [facility] Hematocrit Auto (Bld) [Volum e fraction]Ordered By: Dr. Carrasco on 01-06-2022 Hematocrit (Bld) [Volume fraction] 32.8 % 40-54 [facility] Laboratory - Chemistry and C hemistry - challengeOrdered By: Tc Subramanian on 01-06-2022 CO2 [Moles/Vol] 28.0 mmol/L 21.0-32.0 [facility] Urea nitrogen/Creatinine [Mass ratio] 17.6 mg/mg 10-20 [facility] - Hematology and Cell countsOrdered By: Dr. Carrasco on 01-06-2022 Erythrocyte distribution width (RBC) [Entitic vol] 47.0 fL 35.1-43.9 [facility] Erythrocyte distribution width (RBC) [Ratio] 14.4 % 11.6-14.6 [facility] Immature granulocytes/100 WBC (Bld) 0.500 % 0.0-0.9 [facility] Comment on above: IG% - Immature Granu locytes (promyelocytes, myelocytes and metamyelocytes) > 1% indicates that a LEFT SHIFT is Present. MCH (RBC) [Entitic mass] 28.5 pg 27.0-32.0 [facility] Nucleated RBC/100 WBC (Bld) [Ratio] 0.6 % 0-5 [facility] MCHC Auto (RBC) [Mass/Vol]Or dered By: Dr. Carrasco on 01-06-2022 MCHC (RBC) [Mass/Vol] 31.4 g/dL 32-36 [facility] No Panel InformationOrdered By: Tc Subramanian on 01-06-2022 Estimated GFR (MDRD) Amer 32 mL/min >60 [facility] Comment on above: GFR Calc Estimated GFR (MDRD) Non-Af Amer 26 mL/min >60 [facility] Comment on above: Non- GFR Calc Platelets bldOrdered By: Dr. Carrasco on 01-06-2022 Platelets (Bld) [#/Vol] 187 10*3/uL 150-450 [facility] Serum or plasma calcium jamel urement (mass/volume)Ordered By: Tc Subramanian on 01-06-2022 Calcium [Mass/Vol] 8.3 mg/dL 8.5-10.1 [facility] Serum or plasma creatinine m easurement (mass/volume)Ordered By: Tc Subramanian on 01-06-2022 Creatinine [Mass/Vol] 2.56 mg/dL 0.70-1.30 [facility] Comment on above: The validity of the calculated GFR & GFRAA in patients over 70 years has not been determined. Clinical correlation is essential. Serum or plasma urea nitroge n measurement (mass/volume)Ordered By: Tc Subramanian on 01-06-2022 Urea nitrogen [Mass/Vol] 45 mg/dL 7-18 [facility] Thin prep Papanicolaou smear with manual screeningOrdered By: Tc Subramanian on 01-06-2022 Thin prep Papanicolaou smear with manual screening 6 5-15 [facility] Absolute lymphocyte countOrd ered By: Dr. Asencio on 12-28-2021 Lymphocytes Auto (Unsp spec) [#/Vol] 2.01 10*3/uL 0.83-4.51 [facility] Basophil percentageOrdered B y: Dr. Asencio on 12-28-2021 Basophil percentage 0-5 SEEN /hpf 0-5 [facility] Basophils/100 WBC (Bld) 0.2 % 0-1 [facility] Bilirubin [Mass/Vol] 0.40 mg/dL 0.20-1.00 [facility] Comment on above: For patients on eltr ombopag therapy, use of Dimension Oil Trough TBIL is not recommended. Chloride [Moles/Vol] 101 mmol/L 98-107 [facility] Eosinophils/100 WBC (Bld) 0.0 % 0-5 [facility] Glucose [Mass/Vol] 166 mg/dL 74-106 [facility] Comment on above: Fasting Glucose resu lt greater than or equal to 126 mg/dL suggests DIABETES MELLITUS per A.D.A. criteria. Neutrophils (Bld) [#/Vol] 3.4 10*3/uL 2.0-7.7 [facility] Neutrophils/100 WBC (Bld) 59.2 % 47-70 [facility] Potassium [Moles/Vol] 4.4 mmol/L 3.5-5.1 [facility] [facility] Protein [Mass/Vol] 7.3 g/dL 6.4-8.2 [facility] Sodium [Moles/Vol] 134 mmol/L 136-145 [facility] WBC (Bld) [#/Vol] 5.7 10*3/uL 4.4-11.0 [facility] Bilirubin Test strip Ql (U)O rdered By: Dr. Asencio on 12-28-2021 Bilirubin Ql (U) Negative Negative [facility] Blood erythrocytes count (nu mber/volume)Ordered By: Dr. Asencio on 12-28-2021 RBC (Bld) [#/Vol] 3.95 10*6/uL 4.6-6.2 [facility] Blood hemoglobin measurement (mass/volume)Ordered By: Dr. Asencio on 12-28-2021 Hemoglobin (Bld) [Mass/Vol] 11.1 g/dL 13.0-16.5 [facility] Blood lymphocytes/100 leukoc ytesOrdered By: Dr. Asencio on 12-28-2021 Lymphocytes/100 WBC (Bld) 35.1 % 19-41 [facility] Blood monocytes/100 leukocyt esOrdered By: Dr. Asencio on 12-28-2021 Monocytes/100 WBC (Bld) 5.2 % 0-10 [facility] Blood platelet mean volumeOr dered By: Dr. Asencio on 12-28-2021 Platelet mean volume (Bld) [Entitic vol] 9.8 fL 6.2-12.0 [facility] Determination of erythrocyte mean corpuscular volume (MCV)Ordered By: Dr. Asencio on 12-28-2021 MCV (RBC) [Entitic vol] 86.3 fL 80-94 [facility] Hematocrit Auto (Bld) [Volum e fraction]Ordered By: Dr. Asencio on 12-28-2021 Hematocrit (Bld) [Volume fraction] 34.1 % 40-54 [facility] Ketones Test strip Ql (U)Ord ered By: Dr. Asencio on 12-28-2021 Ketones Ql (U) Negative Negative [facility] Laboratory - Chemistry and C hemistry - challengeOrdered By: Dr. Asencio on 12-28-2021 ALP [Catalytic activity/Vol] 73 U/L 45-117 [facility] ALT [Catalytic activity/Vol] 18 U/L 16-61 [facility] CO2 [Moles/Vol] 25.0 mmol/L 21.0-32.0 [facility] Globulin (S) [Mass/Vol] 4.5 g/dL 2.2-4.2 [facility] Urea nitrogen/Creatinine [Mass ratio] 12.8 mg/mg 10-20 [facility] Laboratory - Hematology and Cell countsOrdered By: Dr. Asencio on 12-28-2021 Erythrocyte distribution width (RBC) [Entitic vol] 43.4 fL 35.1-43.9 [facility] Erythrocyte distribution width (RBC) [Ratio] 13.7 % 11.6-14.6 [facility] Immature granulocytes/100 WBC (Bld) 0.300 % 0.0-0.9 [facility] Comment on above: IG% - Immature Granu locytes (promyelocytes, myelocytes and metamyelocytes) > 1% indicates that a LEFT SHIFT is Present. MCH (RBC) [Entitic mass] 28.1 pg 27.0-32.0 [facility] Nucleated RBC/100 WBC (Bld) [Ratio] 0 % 0-5 [facility] MCHC Auto (RBC) [Mass/Vol]Or dered By: Dr. Asencio on 12-28-2021 MCHC (RBC) [Mass/Vol] 32.6 g/dL 32-36 [facility] Mucus LM Ql (Urine sed)Order ed By: Dr. Asencio on 12-28-2021 Mucus Ql (Urine sed) 0 SEEN /hpf [facility] Nitrite Test strip Ql (U)Ord ered By: Dr. Asencio on 12-28-2021 Nitrite Ql (U) Negative Negative [facility] No Panel InformationOrdered By: Dr. Asencio on 12-28-2021 Estimated Creatinine Clearance Calc 27.92 ml/min [facility] Estimated GFR (MDRD) Amer 38 mL/min >60 [facility] Comment on above: GFR Calc Estimated GFR (MDRD) Non-Af Amer 32 mL/min >60 [facility] Comment on above: Non- GFR Calc Platelets bldOrdered By: Dr. Asencio on 12-28-2021 Platelets (Bld) [#/Vol] 109 10*3/uL 150-450 [facility] Protein Test strip Ql (U)Ord ered By: Dr. Asencio on 12-28-2021 Protein Ql (U) 100 mg/dl Negative [facility] Serum or plasma albumin jamel urement (mass/volume)Ordered By: Dr. Asencio on 12-28-2021 Albumin [Mass/Vol] 2.8 g/dL 3.2-5.0 [facility] Serum or plasma albumin/glob ulin mass ratioOrdered By: Dr. Asencio on 12-28-2021 Albumin/Globulin [Mass ratio] 0.6 {ratio} 0.9-2.4 [facility] Serum or plasma calcium jamel urement (mass/volume)Ordered By: Dr. Asencio on 12-28-2021 Calcium [Mass/Vol] 8.8 mg/dL 8.5-10.1 [facility] Serum or plasma creatinine m easurement (mass/volume)Ordered By: Dr. Asencio on 12-28-2021 Creatinine [Mass/Vol] 2.19 mg/dL 0.70-1.30 [facility] Comment on above: The validity of the calculated GFR & GFRAA in patients over 70 years has not been determined. Clinical correlation is essential. Serum or plasma urea nitroge n measurement (mass/volume)Ordered By: Dr. Asencio on 12-28-2021 Urea nitrogen [Mass/Vol] 28 mg/dL 7-18 [facility] Squamous epithelial cells de tection in urine sediment by light microscopyOrdered By: Dr. Asencio on 12-28-2021 Epithelial cells.squamous LM Ql (Urine sed) 0 SEEN /hpf 0-5 [facility] Thin prep Papanicolaou smear with manual screeningOrdered By: Dr. Asencio on 12-28-2021 Thin prep Papanicolaou smear with manual screening 21 U/L 15-37 [facility] Thin prep Papanicolaou smear with manual screening 8 5-15 [facility] Urine blood detectionOrdered By: Dr. Asencio on 12-28-2021 RBC Ql (U) 250 /ul Negative [facility] RBC Ql (U) 25-50 SEEN /hpf 0-5 [facility] Urine clarityOrdered By: Dr. Asencio on 12-28-2021 Clarity (U) Cloudy Clear [facility] Urine color determinationOrd ered By: Dr. Asencio on 12-28-2021 Color (U) Red Yellow [facility] Urine glucose detectionOrder ed By: Dr. Asencio on 12-28-2021 Glucose Ql (U) 50 mg/dl Normal [facility] Urine leukocyte esterase det ection by dipstickOrdered By: Dr. Asencio on 12-28-2021 Leukocyte esterase Test strip Ql (U) 25 /ul Negative [facility] Urine pHOrdered By: Dr. Anastasia forbes on 12-28-2021 pH (U) 6.5 [pH] 5.0 - 8.0 [facility] Urine sediment bacteria coun t by microscopy (number/high power field)Ordered By: Dr. Asencio on 12-28-2021 Bacteria LM.HPF (Urine sed) [#/Area] 0 /[HPF] None Seen [facility] Urine specific gravity measu rementOrdered By: Dr. Asencio on 12-28-2021 Specific gravity (U) [Rel density] 1.015 1.002-1.030 [facility] Urobilinogen Auto test strip Ql (U)Ordered By: Dr. Asencio on 12-28-2021 Urobilinogen Ql (U) Normal mg/dl Normal [facility] Absolute lymphocyte countOrd ered By: Dr. Carrasco on 12-22-2021 Lymphocytes Auto (Unsp spec) [#/Vol] 3.71 10*3/uL 0.83-4.51 [facility] Basophil percentageOrdered B y: Dr. Carrasco on 12-22-2021 Basophils/100 WBC (Bld) 0.3 % 0-1 [facility] Eosinophils/100 WBC (Bld) 0.2 % 0-5 [facility] Neutrophils (Bld) [#/Vol] 2.2 10*3/uL 2.0-7.7 [facility] Neutrophils/100 WBC (Bld) 34.6 % 47-70 [facility] WBC (Bld) [#/Vol] 6.4 10*3/uL 4.4-11.0 [facility] Blood erythrocytes count (nu mber/volume)Ordered By: Dr. Carrasco on 12-22-2021 RBC (Bld) [#/Vol] 4.25 10*6/uL 4.6-6.2 [facility] Blood hemoglobin measurement (mass/volume)Ordered By: Dr. Carrasco on 12-22-2021 Hemoglobin (Bld) [Mass/Vol] 12.3 g/dL 13.0-16.5 [facility] Blood lymphocytes/100 leukoc ytesOrdered By: Dr. Carrasco on 12-22-2021 Lymphocytes/100 WBC (Bld) 58.1 % 19-41 [facility] Blood monocytes/100 leukocyt esOrdered By: Dr. Carrasco on 12-22-2021 Monocytes/100 WBC (Bld) 6.6 % 0-10 [facility] Blood platelet mean volumeOr dered By: Dr. Carrasco on 12-22-2021 Platelet mean volume (Bld) [Entitic vol] 9.2 fL 6.2-12.0 [facility] Determination of erythrocyte mean corpuscular volume (MCV)Ordered By: Dr. Carrasco on 12-22-2021 MCV (RBC) [Entitic vol] 90.1 fL 80-94 [facility] Hematocrit Auto (Bld) [Volum e fraction]Ordered By: Dr. Carrasco on 12-22-2021 Hematocrit (Bld) [Volume fraction] 38.3 % 40-54 [facility] Laboratory - Hematology and Cell countsOrdered By: Dr. Carrasco on 12-22-2021 Erythrocyte distribution width (RBC) [Entitic vol] 47.0 fL 35.1-43.9 [facility] Erythrocyte distribution width (RBC) [Ratio] 14.2 % 11.6-14.6 [facility] Immature granulocytes/100 WBC (Bld) 0.200 % 0.0-0.9 [facility] Comment on above: IG% - Immature Granu locytes (promyelocytes, myelocytes and metamyelocytes) > 1% indicates that a LEFT SHIFT is Present. MCH (RBC) [Entitic mass] 28.9 pg 27.0-32.0 [facility] Nucleated RBC/100 WBC (Bld) [Ratio] 0 % 0-5 [facility] MCHC Auto (RBC) [Mass/Vol]Or dered By: Dr. Carrasco on 12-22-2021 MCHC (RBC) [Mass/Vol] 32.1 g/dL 32-36 [facility] Platelets bldOrdered By: Dr. Carrasco on 12-22-2021 Platelets (Bld) [#/Vol] 137 10*3/uL 150-450 [facility] Basophil percentageon 2021 Bilirubin [Mass/Vol] 0.40 mg/dL 0.20-1.00 [facility] Work Phone: Comment on above: For patients on eltr ombopag therapy, use of Dimension Oil Trough TBIL is not recommended. Chloride [Moles/Vol] 99 mmol/L 98-107 [facility] Work Phone: Glucose [Mass/Vol] 172 mg/dL 74-106 [facility] Work Phone: Comment on above: Fasting Glucose resu lt greater than or equal to 126 mg/dL suggests DIABETES MELLITUS per A.D.A. criteria. Potassium [Moles/Vol] 4.5 mmol/L 3.5-5.1 [facility] Work Phone: Protein [Mass/Vol] 7.2 g/dL 6.4-8.2 [facility] Work Phone: Sodium [Moles/Vol] 133 mmol/L 136-145 [facility] Work Phone: WBC (Bld) [#/Vol] 6.3 10*3/uL 4.4-11.0 [facility] Work Phone: Blood erythrocytes count (nu mber/volume)on 09-23-2021 RBC (Bld) [#/Vol] 4.97 10*6/uL 4.6-6.2 [facility] Work Phone: Blood hemoglobin measurement (mass/volume)on 09-23-2021 Hemoglobin (Bld) [Mass/Vol] 15.3 g/dL 13.0-16.5 [facility] Work Phone: Blood platelet mean volumeon 09-23-2021 Platelet mean volume (Bld) [Entitic vol] 8.8 fL 6.2-12.0 [facility] Work Phone: Determination of erythrocyte mean corpuscular volume (MCV)on 09-23-2021 MCV (RBC) [Entitic vol] 93.2 fL 80-94 [facility] Work Phone: Hematocrit Auto (Bld) [Volum e fraction]on 09-23-2021 Hematocrit (Bld) [Volume fraction] 46.3 % 40-54 [facility] Work Phone: Laboratory - Chemistry and C hemistry - challengeon 09-23-2021 ALP [Catalytic activity/Vol] 71 U/L 45-117 [facility] Work Phone: ALT [Catalytic activity/Vol] 29 U/L 16-61 [facility] Work Phone: CO2 [Moles/Vol] 27.0 mmol/L 21.0-32.0 [facility] Work Phone: Globulin (S) [Mass/Vol] 3.8 g/dL 2.2-4.2 [facility] Work Phone: Urea nitrogen/Creatinine [Mass ratio] 15.0 mg/mg 10-20 [facility] Work Phone: Laboratory - Hematology and Cell countson 09-23-2021 Erythrocyte distribution width (RBC) [Entitic vol] 44.2 fL 35.1-43.9 [facility] Work Phone: Erythrocyte distribution width (RBC) [Ratio] 12.9 % 11.6-14.6 [facility] Work Phone: MCH (RBC) [Entitic mass] 30.8 pg 27.0-32.0 [facility] Work Phone: MCHC Auto (RBC) [Mass/Vol]on 09-23-2021 MCHC (RBC) [Mass/Vol] 33.0 g/dL 32-36 [facility] Work Phone: No Panel Informationon 09-23 Estimated GFR (MDRD) Amer 82 mL/min >60 [facility] Work Phone: Comment on above: GFR Calc Estimated GFR (MDRD) Non-Af Amer 68 mL/min >60 [facility] Work Phone: Comment on above: Non- GFR Calc Prostate Specific Antigen Screen 0.43 ng/mL 0.00-4.00 [facility] Work Phone: Comment on above: This test was perfor med using the TPSA assay method [facility] the[facility]. Values obtained with differentassay methods cannot be used interchangably.When changing PSA assays in the course of monitoring apatient, additional sequential testing should be carriedout to confirm baseline values. Platelets bldon 08-17-2022 Platelets (Bld) [#/Vol] 106 10*3/uL 150-450 [facility] Work Phone: Serum or plasma albumin jamel urement (mass/volume)on 09-23-2021 Albumin [Mass/Vol] 3.4 g/dL 3.2-5.0 [facility] Work Phone: Serum or plasma albumin/glob ulin mass ratioon 09-23-2021 Albumin/Globulin [Mass ratio] 0.9 {ratio} 0.9-2.4 [facility] Work Phone: Serum or plasma calcium jamel urement (mass/volume)on 09-23-2021 Calcium [Mass/Vol] 8.4 mg/dL 8.5-10.1 [facility] Work Phone: Serum or plasma creatinine m easurement (mass/volume)on 09-23-2021 Creatinine [Mass/Vol] 1.13 mg/dL 0.70-1.30 [facility] Work Phone: Comment on above: The validity of the calculated GFR & GFRAA in patients over 70 years has not been determined. Clinical correlation is essential. Serum or plasma urea nitroge n measurement (mass/volume)on 09-23-2021 Urea nitrogen [Mass/Vol] 17 mg/dL 7-18 [facility] Work Phone: Thin prep Papanicolaou smear with manual screeningon 09-23-2021 Thin prep Papanicolaou smear with manual screening 26 U/L 15-37 [facility] Work Phone: Thin prep Papanicolaou smear with manual screening 7 5-15 [facility] Work Phone: Culture, urine Bacteria identified Cx Nom (U) Culture exhibits no growth. [facility] Work Phone: Vital Signs Date Time Vital Sign Value Performing Clinician Facility 10-19-2024 07:47-0400 Body temperature 97.9 [degF] [facility] Work Phone: [place] 10-19-2024 07:47-0400 Diastolic blood pressure 75 mm[Hg] [facility] Work Phone: [place] 10-19-2024 07:47-0400 Heart rate 60 /min [facility] Work Phone: [place] 10-19-2024 07:47-0400 Respiratory rate 16 /min [facility] Work Phone: [place] 10-19-2024 07:47-0400 SaO2% (BldA) [Mass fraction] 97 % [facility] Work Phone: [place] 10-19-2024 07:47-0400 Systolic blood pressure 130 mm[Hg] [facility] Work Phone: [place] 10-16-2024 09:51-0400 Body temperature 98.4 [degF] uLigi Banks MD Work Phone: [place] 10-16-2024 09:51-0400 Diastolic blood pressure 69 mm[Hg] Luigi Banks MD Work Phone: [place] 10-16-2024 09:51-0400 Heart rate 60 /min Luigi Banks MD Work Phone: [place] 10-16-2024 09:51-0400 Respiratory rate 16 /min Luigi Banks MD Work Phone: [place] 10-16-2024 09:51-0400 SaO2% (BldA) [Mass fraction] 99 % Luigi Banks MD Work Phone: [place] Comment on above: RA 10-16-2024 09:51-0400 Systolic blood pressure 115 mm[Hg] Luigi Banks MD Work Phone: [place] 10-15-2024 08:45-0400 Body mass index (BMI) [Ratio] 23.66 kg/m2 [facility] Work Phone: [place] 10-15-2024 08:45-0400 Body temperature 98.2 [degF] [facility] Work Phone: [place] 10-15-2024 08:45-0400 Body weight 66.22 kg [facility] Work Phone: [place] 10-15-2024 08:45-0400 Diastolic blood pressure 72 mm[Hg] [facility] Work Phone: [place] 10-15-2024 08:45-0400 Heart rate 60 /min [facility] Work Phone: [place] 10-15-2024 08:45-0400 Respiratory rate 18 /min [facility] Work Phone: [place] 10-15-2024 08:45-0400 SaO2% (BldA) [Mass fraction] 95 % [facility] Work Phone: [place] 10-15-2024 08:45-0400 Systolic blood pressure 125 mm[Hg] [facility] Work Phone: [place] 10-12-2024 10:20-0400 Body mass index (BMI) [Ratio] 23.82 kg/m2 Bobkathy Otero Work Phone: [place] 10-12-2024 10:20-0400 Body temperature 97.59 [degF] Bobkathy Otero Work Phone: [place] 10-12-2024 10:20-0400 Body weight 66.68 kg Bobkathy Otero Work Phone: [place] 10-12-2024 10:20-0400 Diastolic blood pressure 78 mm[Hg] Bob Otero Work Phone: [place] 10-12-2024 10:20-0400 Heart rate 58 /min Bobkathy Otero Work Phone: [place] 10-12-2024 10:20-0400 SaO2% (BldA) [Mass fraction] 98 % Bob Otero Work Phone: [place] 10-12-2024 10:20-0400 Systolic blood pressure 158 mm[Hg] Bob Otero Work Phone: [place] 10-09-2024 09:54-0400 Body temperature 97.59 [degF] Luigi Banks MD Work Phone: [place] 10-09-2024 09:54-0400 Diastolic blood pressure 63 mm[Hg] Luigi Banks MD Work Phone: [place] 10-09-2024 09:54-0400 Heart rate 61 /min Luigi Banks MD Work Phone: [place] 10-09-2024 09:54-0400 SaO2% (BldA) [Mass fraction] 97 % Luigi Banks MD Work Phone: [place] 10-09-2024 09:54-0400 Systolic blood pressure 105 mm[Hg] Luigi Banks MD Work Phone: [place] 10-02-2024 10:09-0400 Body temperature 98.2 [degF] Luigi Banks MD Work Phone: [place] 10-02-2024 10:09-0400 Diastolic blood pressure 74 mm[Hg] Luigi Banks MD Work Phone: [place] 10-02-2024 10:09-0400 Heart rate 59 /min Luigi Banks MD Work Phone: [place] 10-02-2024 10:09-0400 Respiratory rate 14 /min Luigi Banks MD Work Phone: [place] 10-02-2024 10:09-0400 SaO2% (BldA) [Mass fraction] 100 % Luigi Banks MD Work Phone: [place] 10-02-2024 10:09-0400 Systolic blood pressure 148 mm[Hg] Luigi Banks MD Work Phone: [place] 09-28-2024 07:30-0400 Body temperature 98.91 [degF] [facility] Work Phone: [place] 09-28-2024 07:30-0400 Diastolic blood pressure 64 mm[Hg] [facility] Work Phone: [place] 09-28-2024 07:30-0400 Heart rate 53 /min [facility] Work Phone: [place] 09-28-2024 07:30-0400 SaO2% (BldA) [Mass fraction] 93 % [facility] Work Phone: [place] 09-28-2024 07:30-0400 Systolic blood pressure 128 mm[Hg] [facility] Work Phone: [place] 09-27-2024 10:24-0400 Diastolic blood pressure 63 mm[Hg] [facility] Work Phone: [place] 09-27-2024 10:24-0400 Heart rate 54 /min [facility] Work Phone: [place] 09-27-2024 10:24-0400 SaO2% (BldA) [Mass fraction] 92 % [facility] Work Phone: [place] 09-27-2024 10:24-0400 Systolic blood pressure 125 mm[Hg] [facility] Work Phone: [place] 09-25-2024 10:20-0400 Body temperature 97.5 [degF] Luigi Banks MD Work Phone: [place] 09-25-2024 10:20-0400 Diastolic blood pressure 66 mm[Hg] Luigi Banks MD Work Phone: [place] 09-25-2024 10:20-0400 Heart rate 56 /min Luigi Banks MD Work Phone: [place] 09-25-2024 10:20-0400 SaO2% (BldA) [Mass fraction] 94 % Luigi Banks MD Work Phone: [place] 09-25-2024 10:20-0400 Systolic blood pressure 121 mm[Hg] Luigi Banks MD Work Phone: [place] 09-24-2024 11:00-0400 Body height 167.3 cm [facility] Work Phone: [place] Comment on above: verified by Iris Diaz 09-24-2024 10:33-0400 Body mass index (BMI) [Ratio] 24.31 kg/m2 [facility] Work Phone: [place] 09-24-2024 10:33-0400 Body temperature 96.91 [degF] [facility] Work Phone: [place] 09-24-2024 10:33-0400 Body weight 68.04 kg [facility] Work Phone: [place] 09-24-2024 10:33-0400 Diastolic blood pressure 74 mm[Hg] [facility] Work Phone: [place] 09-24-2024 10:33-0400 Heart rate 54 /min [facility] Work Phone: [place] 09-24-2024 10:33-0400 SaO2% (BldA) [Mass fraction] 94 % [facility] Work Phone: [place] 09-24-2024 10:33-0400 Systolic blood pressure 146 mm[Hg] [facility] Work Phone: [place] 09-21-2024 08:24-0400 Body height 167.[address] Padmini Carrasco MD Work Phone: [facility] 09-21-2024 08:24-0400 Body mass index (BMI) [Ratio] 25.8 kg/m2 Dr. Padmini Carrasco MD Work Phone: [facility] 09-21-2024 08:24-0400 Body temperature 96.7 [degF] Dr. Padmini Carrasco MD Work Phone: [facility] 09-21-2024 08:24-0400 Body weight 72.[address] Padmini Carrasco MD Work Phone: [facility] 09-21-2024 08:24-0400 Diastolic blood pressure 95 mm[Hg] Dr. Padmini Carrasco MD Work Phone: [facility] 09-21-2024 08:24-0400 Heart rate 53 /min Dr. Padmini Carrasco MD Work Phone: [facility] 09-21-2024 08:24-0400 Respiratory rate 14 /min Dr. Padmini Carrasco MD Work Phone: [facility] 09-21-2024 08:24-0400 SaO2% (BldA) [Mass fraction] 96 % Dr. Padmini Carrasco MD Work Phone: [facility] 09-21-2024 08:24-0400 Systolic blood pressure 154 mm[Hg] Dr. Padmini Carrasco MD Work Phone: [facility] 09-05-2024 14:11-0400 Body height 169 cm Lakeisha Masci DO Work Phone: [place] 09-05-2024 14:11-0400 Body mass index (BMI) [Ratio] 24.22 kg/m2 Lakeisha Masci DO Work Phone: [place] 09-05-2024 14:11-0400 Body temperature 97.7 [degF] Lakeisha Masci DO Work Phone: [place] 09-05-2024 14:11-0400 Body weight 69.17 kg Lakeisha Masci DO Work Phone: [place] 09-05-2024 14:11-0400 Diastolic blood pressure 69 mm[Hg] Lakeisha Masci DO Work Phone: [place] 09-05-2024 14:11-0400 Heart rate 75 /min Lakeisha Masci DO Work Phone: [place] 09-05-2024 14:11-0400 SaO2% (BldA) [Mass fraction] 93 % Lakeisha Masci DO Work Phone: [place] 09-05-2024 14:11-0400 Systolic blood pressure 145 mm[Hg] Lakeisha Masci DO Work Phone: [place] 08-30-2024 08:13-0400 Body height 167.[address] Padmini Carrasco MD Work Phone: [facility] 08-30-2024 08:13-0400 Body mass index (BMI) [Ratio] 24.8 kg/m2 Dr. Pdamini Carrasco MD Work Phone: [facility] 08-30-2024 08:13-0400 Body weight 69.[address] Padmini Carrasco MD Work Phone: [facility] 08-30-2024 08:13-0400 Diastolic blood pressure 61 mm[Hg] Dr. Padmini Carrasco MD Work Phone: [facility] 08-30-2024 08:13-0400 Heart rate 54 /min Dr. Padmini Carrasco MD Work Phone: [facility] 08-30-2024 08:13-0400 Respiratory rate 16 /min Dr. Padmini Carrasco MD Work Phone: [facility] 08-30-2024 08:13-0400 SaO2% (BldA) [Mass fraction] 93 % Dr. Padmini Carrasco MD Work Phone: [facility] 08-30-2024 08:13-0400 Systolic blood pressure 99 mm[Hg] Dr. Padmini Carrasco MD Work Phone: [facility] 08-29-2024 13:08-0400 Body mass index (BMI) [Ratio] 25.19 kg/m2 Stacy Gauthier MD Work Phone: [place] 08-29-2024 13:08-0400 Body weight 70.76 kg Stacy Gauthier MD Work Phone: [place] 08-16-2024 10:19-0400 Body height 167.[address] [place] 08-16-2024 10:19-0400 Body mass index (BMI) [Ratio] 25.26 kg/m2 Pst 1 [place] 08-16-2024 10:19-0400 Body temperature 96.8 [degF] Pst [address] [facility] 08-16-2024 10:19-0400 Body weight 70.[address] 1 [place] 08-16-2024 10:19-0400 Diastolic blood pressure 82 mm[Hg] Pst 1 [place] 08-16-2024 10:19-0400 Heart rate 53 /min Pst 1 [place] 08-16-2024 10:19-0400 Respiratory rate 16 /min Pst [address] [facility] 08-16-2024 10:19-0400 SaO2% (BldA) [Mass fraction] 99 % Pst 1 [place] 08-16-2024 10:19-0400 Systolic blood pressure 138 mm[Hg] Pst 1 [place] 08-02-2024 14:06-0400 Body height 167.6 cm Stacy Gauthier MD Work Phone: [place] 08-02-2024 14:06-0400 Body mass index (BMI) [Ratio] 25.19 kg/m2 Stacy Gauthier MD Work Phone: [place] 08-02-2024 14:06-0400 Body weight 70.76 kg Stacy Gauthier MD Work Phone: [place] 08-02-2024 14:06-0400 Heart rate 65 /min Stacy Gauthier MD Work Phone: [place] 08-02-2024 14:06-0400 SaO2% (BldA) [Mass fraction] 91 % Stacy Gauthier MD Work Phone: [place] 07-26-2024 09:00-0400 Body height 167.6 cm Codey Christianson MD Work Phone: [place] 07-26-2024 09:00-0400 Body mass index (BMI) [Ratio] 25.3 kg/m2 Codey Christianson MD Work Phone: [place] 07-26-2024 09:00-0400 Body temperature 97.3 [degF] Codey Christianson MD Work Phone: [place] 07-26-2024 09:00-0400 Body weight 71.1 kg Codey Christianson MD Work Phone: [place] 07-26-2024 09:00-0400 Diastolic blood pressure 67 mm[Hg] Codey Christianson MD Work Phone: [place] 07-26-2024 09:00-0400 Heart rate 50 /min Codey Christianson MD Work Phone: [place] Comment on above: md notified 07-26-2024 09:00-0400 Respiratory rate 18 /min Codey Christianson MD Work Phone: [place] 07-26-2024 09:00-0400 SaO2% (BldA) [Mass fraction] 97 % Codey Christianson MD Work Phone: [place] 07-26-2024 09:00-0400 Systolic blood pressure 150 mm[Hg] Codey Christianson MD Work Phone: [place] 06-28-2024 12:15-0400 Body temperature 98.4 [degF] Dr. Padmini Carrasco MD Work Phone: [facility] 06-28-2024 12:15-0400 Diastolic blood pressure 76 mm[Hg] Dr. Padmini Carrasco MD Work Phone: [facility] 06-28-2024 12:15-0400 Heart rate 64 /min Dr. Padmini Carrasco MD Work Phone: [facility] 06-28-2024 12:15-0400 Inhaled oxygen flow rate 2 L/min Dr. Padmini Carrasco MD Work Phone: [facility] 06-28-2024 12:15-0400 Respiratory rate 18 /min Dr. Padmini Carrasco MD Work Phone: [facility] 06-28-2024 12:15-0400 SaO2% (BldA) [Mass fraction] 94 % Dr. Padmini Carrasco MD Work Phone: [facility] 06-28-2024 12:15-0400 Systolic blood pressure 152 mm[Hg] Dr. Padmini Carrasco MD Work Phone: [facility] 06-27-2024 15:48-0400 Body height 167.[address] Padmini Carrasco MD Work Phone: 4(158)156-311556 [place] [address] 06-27-2024 15:48-0400 Body mass index (BMI) [Ratio] 25.6 kg/m2 Dr. Padmini Carrasco MD Work Phone: 8(827)012-999256 [place] [address] 06-27-2024 15:48-0400 Body weight [address] Padmini Carrasco MD Work Phone: 5(444)098-017884 [place] [address] 06-27-2024 07:38-0400 Body temperature 97.8 [degF] Dr. Padmini Carrasco MD Work Phone: 9(368)321-013584 [place] [address] 06-27-2024 07:38-0400 Diastolic blood pressure 73 mm[Hg] Dr. Padmini Carrasco MD Work Phone: 9(276)908-462156 [place] [address] 06-27-2024 07:38-0400 Heart rate 56 /min Dr. Padmini Carrasco MD Work Phone: 4(791)584-073884 [place] [address] 06-27-2024 07:38-0400 Respiratory rate 16 /min Dr. Padmini Carrasco MD Work Phone: 0(161)402-943684 [place] [address] 06-27-2024 07:38-0400 SaO2% (BldA) [Mass fraction] 97 % Dr. Padmini Carrasco MD Work Phone: [facility] 06-27-2024 07:38-0400 Systolic blood pressure 173 mm[Hg] Dr. Pamdini Carrasco MD Work Phone: 5(413)284-037256 [place] [address] 06-27-2024 06:57-0400 Body height 167.[address] Padmini Carrasco MD Work Phone: [facility] 06-27-2024 06:57-0400 Body mass index (BMI) [Ratio] 25.6 kg/m2 Dr. Padmini Carrasco MD Work Phone: [facility] 06-27-2024 06:57-0400 Body weight [address] Padmini Carrasco MD Work Phone: [facility] 06-19-2024 15:38-0400 Diastolic blood pressure 72 mm[Hg] Dr. Padmini Carrasco MD Work Phone: 8(465)247-573784 [place] [address] 06-19-2024 15:38-0400 Systolic blood pressure 146 mm[Hg] Dr. Padmini Carrasco MD Work Phone: 3(497)261-603756 [place] [address] 06-19-2024 06:17-0400 Body height 167.[address] Padmini Carrasco MD Work Phone: 8(989)873-694584 [place] [address] 06-19-2024 06:17-0400 Body mass index (BMI) [Ratio] 25.7 kg/m2 Dr. Padmini Carrasco MD Work Phone: 1(481)166-310756 [place] [address] 06-19-2024 06:17-0400 Body weight 72.[address] Padmini Carrasco MD Work Phone: 3(290)740-308007 [address] 06-19-2024 06:17-0400 Diastolic blood pressure 77 mm[Hg] Dr. Padmini Carrasco MD Work Phone: [facility] 06-19-2024 06:17-0400 Heart rate 52 /min Dr. Padmini Carrasco MD Work Phone: 9(291)212-317656 [place] [address] 06-19-2024 06:17-0400 Respiratory rate 18 /min Dr. Padmini Carrasco MD Work Phone: [facility] 06-19-2024 06:17-0400 SaO2% (BldA) [Mass fraction] 94 % Dr. Padmini Carrasco MD Work Phone: [facility] 06-19-2024 06:17-0400 Systolic blood pressure 163 mm[Hg] Dr. Padmini Carrasco MD Work Phone: 3(609)992-815956 [place] [address] 05-17-2024 00:50-0400 Body temperature 97.9 [degF] Dr. Padmini Carrasco MD Work Phone: [facility] 05-17-2024 00:50-0400 Diastolic blood pressure 78 mm[Hg] Dr. Padmini Carrasco MD Work Phone: [facility] 05-17-2024 00:50-0400 Heart rate 66 /min Dr. Padmini Carrasco MD Work Phone: 9(692)427-113984 [place] [address] 05-17-2024 00:50-0400 Respiratory rate 20 /min Dr. Padmini Carrasco MD Work Phone: 7(796)444-944284 [place] [address] 05-17-2024 00:50-0400 SaO2% (BldA) [Mass fraction] 95 % Dr. Padmini Carrasco MD Work Phone: 9(612)079-214756 [place] [address] 05-17-2024 00:50-0400 Systolic blood pressure 164 mm[Hg] Dr. Padmini Carrasco MD Work Phone: 3(344)924-102784 [place] [address] 05-16-2024 22:09-0400 Body height 167.[address] Padmini Carrasco MD Work Phone: 7(534)137-861384 [place] [address] 05-16-2024 22:09-0400 Body mass index (BMI) [Ratio] 25.9 kg/m2 Dr. Padmini Carrasco MD Work Phone: 3(109)010-763784 [place] [address] 05-16-2024 22:09-0400 Body weight 73.[address] Padmini Carrasco MD Work Phone: 9(495)924-173056 [place] [address] 03-23-2024 08:03-0500 Body mass index (BMI) [Ratio] 25.8 kg/m2 Dr. Padmini Carrasco MD Work Phone: 4(318)740-025784 [place] [address] 03-23-2024 08:03-0500 Body temperature 97.2 [degF] Dr. Padmini Carrasco MD Work Phone: 8(415)130-230084 [place] [address] 03-23-2024 08:03-0500 Body weight 72.[address] Padmini Carrasco MD Work Phone: [facility] 03-23-2024 08:03-0500 Diastolic blood pressure 87 mm[Hg] Dr. Padmini Carrasco MD Work Phone: [facility] 03-23-2024 08:03-0500 Heart rate 57 /min Dr. Padmini Carrasco MD Work Phone: [facility] 03-23-2024 08:03-0500 Respiratory rate 18 /min Dr. Padmini Carrasco MD Work Phone: [facility] 03-23-2024 08:03-0500 SaO2% (BldA) [Mass fraction] 98 % Dr. Padmini Carrasco MD Work Phone: [facility] 03-23-2024 08:03-0500 Systolic blood pressure 145 mm[Hg] Dr. Padmini Carrasco MD Work Phone: 3(899)834-653356 [place] [address] 01-18-2024 14:11-0500 Body temperature 97.9 [degF] Dr. Padmini Carrasco MD Work Phone: [facility] 01-18-2024 14:11-0500 Diastolic blood pressure 69 mm[Hg] Dr. Padmini Carrasco MD Work Phone: [facility] 01-18-2024 14:11-0500 Heart rate 53 /min Dr. Padmini Carrasco MD Work Phone: [facility] 01-18-2024 14:11-0500 Respiratory rate 16 /min Dr. Padmini Carrasco MD Work Phone: [facility] 01-18-2024 14:11-0500 SaO2% (BldA) [Mass fraction] 94 % Dr. Padmini Carrasco MD Work Phone: [facility] 01-18-2024 14:11-0500 Systolic blood pressure 160 mm[Hg] Dr. Padmini Carrasco MD Work Phone: [facility] 01-18-2024 10:01-0500 Body height 167.[address] Padmini Carrasco MD Work Phone: [facility] 01-18-2024 10:01-0500 Body mass index (BMI) [Ratio] 25.2 kg/m2 Dr. Padmini Carrasco MD Work Phone: 6(246)943-619856 [place] [address] 01-18-2024 10:01-0500 Body weight [address] Padmini Carrasco MD Work Phone: 6(216)195-179356 [place] [address] 02-28-2023 10:06-0500 Diastolic blood pressure 80 mm[Hg] Dr. Ezekiel Carrasco Work Phone: 5(079)012-710284 [place] [address] 02-28-2023 10:06-0500 Systolic blood pressure 164 mm[Hg] Dr. Ezekiel Carrasco Work Phone: 8(996)681-668484 [place] [address] 02-28-2023 09:35-0500 Body height 167.[address] Ezekiel Carrasco Work Phone: 3(554)285-415007 [address] 02-28-2023 09:35-0500 Body mass index (BMI) [Ratio] 24.5 kg/m2 Dr. Ezekiel Carrasco Work Phone: 1(481)669-009784 [place] [address] 02-28-2023 09:35-0500 Body weight 68.[address] Ezekiel Carrasco Work Phone: 7(533)852-394884 [place] [address] 02-28-2023 09:35-0500 Heart rate 54 /min Dr. Ezekiel Carrasco Work Phone: 9(078)355-529656 [place] [address] 02-28-2023 09:35-0500 Respiratory rate 18 /min Dr. Ezekiel Carrasco Work Phone: 9(736)151-543307 [address] 02-28-2023 09:35-0500 SaO2% (BldA) [Mass fraction] 96 % Dr. Ezekiel Carrasco Work Phone: 8(508)499-132856 [place] [address] 01-27-2023 07:54-0500 Body mass index (BMI) [Ratio] 23.9 kg/m2 Dr. Ezekiel Carrasco Work Phone: 5(336)410-366756 [place] [address] 01-27-2023 07:54-0500 Body temperature 98 [degF] Dr. Ezekiel Carrasco Work Phone: [facility] 01-27-2023 07:54-0500 Body weight 67.[address] Ezekiel Carrasco Work Phone: [facility] 01-27-2023 07:54-0500 Diastolic blood pressure 77 mm[Hg] Dr. Ezekiel Carrasco Work Phone: [facility] 01-27-2023 07:54-0500 Heart rate 55 /min Dr. Ezekiel Carrasco Work Phone: [facility] 01-27-2023 07:54-0500 Respiratory rate 18 /min Dr. Ezekiel Carrasco Work Phone: [facility] 01-27-2023 07:54-0500 SaO2% (BldA) [Mass fraction] 99 % Dr. Ezekiel Carrasco Work Phone: [facility] 01-27-2023 07:54-0500 Systolic blood pressure 183 mm[Hg] Dr. Ezekiel Carrasco Work Phone: [facility] 12-27-2022 15:13-0500 Body temperature 98.2 [degF] Dr. Ezekiel Carrasco Work Phone: [facility] 12-27-2022 15:13-0500 Body weight 65.[address] Ezekiel Carrasco Work Phone: [facility] 12-27-2022 15:13-0500 Diastolic blood pressure 68 mm[Hg] Dr. Ezekiel Carrasco Work Phone: [facility] 12-27-2022 15:13-0500 Heart rate 58 /min Dr. Ezekiel Carrasco Work Phone: [facility] 12-27-2022 15:13-0500 Respiratory rate 16 /min Dr. Ezekiel Carrasco Work Phone: [facility] 12-27-2022 15:13-0500 SaO2% (BldA) [Mass fraction] 98 % Dr. Ezekiel Carrasco Work Phone: [facility] 12-27-2022 15:13-0500 Systolic blood pressure 151 mm[Hg] Dr. Ezekiel Carrasco Work Phone: [facility] 07-28-2022 10:32-0400 Body height 167.[address] Ezekiel Carrasco Work Phone: [facility] 07-28-2022 10:31-0400 Body mass index (BMI) [Ratio] 23.3 kg/m2 Dr. Ezekiel Carrasco Work Phone: 4(044)689-806856 [place] [address] 07-28-2022 10:31-0400 Body temperature 97.6 [degF] Dr. Ezekiel Carrasco Work Phone: 4(508)181-286807 [address] 07-28-2022 10:31-0400 Body weight 65.[address] Ezekiel Carrasco Work Phone: [facility] 07-28-2022 10:31-0400 Diastolic blood pressure 80 mm[Hg] Dr. Ezekiel Carrasco Work Phone: [facility] 07-28-2022 10:31-0400 Heart rate 84 /min Dr. Ezekiel Carrasco Work Phone: [facility] 07-28-2022 10:31-0400 Respiratory rate 18 /min Dr. Ezekiel Carrasco Work Phone: [facility] 07-28-2022 10:31-0400 SaO2% (BldA) [Mass fraction] 95 % Dr. Ezekiel Carrasco Work Phone: [facility] 07-28-2022 10:31-0400 Systolic blood pressure 138 mm[Hg] Dr. Ezekiel Carrasco Work Phone: [facility] 06-04-2022 08:37-0400 Body temperature 95.6 [degF] Dr. Ezekiel Carrasco Work Phone: [facility] 06-04-2022 08:37-0400 Diastolic blood pressure 74 mm[Hg] Dr. Ezekiel Carrasco Work Phone: [facility] 06-04-2022 08:37-0400 Heart rate 69 /min Dr. Ezekiel Carrasco Work Phone: [facility] 06-04-2022 08:37-0400 Respiratory rate 16 /min Dr. Ezekiel Carrasco Work Phone: [facility] 06-04-2022 08:37-0400 Systolic blood pressure 136 mm[Hg] Dr. Ezekiel Carrasco Work Phone: [facility] 05-21-2022 08:08-0400 Body temperature 97.1 [degF] Dr. Ezekiel Carrasco Work Phone: 2(014)683-802956 [place] [address] 05-21-2022 08:08-0400 Diastolic blood pressure 71 mm[Hg] Dr. Ezekiel Carrasco Work Phone: [facility] 05-21-2022 08:08-0400 Heart rate 73 /min Dr. Ezekiel Carrasco Work Phone: [facility] 05-21-2022 08:08-0400 Respiratory rate 16 /min Dr. Ezekiel Carrasco Work Phone: [facility] 05-21-2022 08:08-0400 Systolic blood pressure 133 mm[Hg] Dr. Ezekiel Carrasco Work Phone: [facility] 05-17-2022 14:02-0400 Body height 167.[address] Ezekiel Carrasco Work Phone: [facility] 05-17-2022 14:02-0400 Body mass index (BMI) [Ratio] 24.5 kg/m2 Dr. Ezekiel Carrasco Work Phone: [facility] 05-17-2022 14:02-0400 Body weight 68.[address] Ezekiel Carrasco Work Phone: [facility] 05-17-2022 14:02-0400 Diastolic blood pressure 74 mm[Hg] Dr. Ezekiel Carrasco Work Phone: [facility] 05-17-2022 14:02-0400 Heart rate 58 /min Dr. Ezekiel Carrasco Work Phone: [facility] 05-17-2022 14:02-0400 Respiratory rate 18 /min Dr. Ezekiel Carrasco Work Phone: [facility] 05-17-2022 14:02-0400 SaO2% (BldA) [Mass fraction] 96 % Dr. Ezekiel Carrasco Work Phone: [facility] 05-17-2022 14:02-0400 Systolic blood pressure 134 mm[Hg] Dr. Ezekiel Carrasco Work Phone: [facility] 05-14-2022 08:07-0400 Body temperature 96.4 [degF] Dr. Ezekiel Carrasco Work Phone: [facility] 05-14-2022 08:07-0400 Diastolic blood pressure 74 mm[Hg] Dr. Ezekiel Carrasco Work Phone: [facility] 05-14-2022 08:07-0400 Heart rate 72 /min Dr. Ezekiel Carrasco Work Phone: [facility] 05-14-2022 08:07-0400 Respiratory rate 18 /min Dr. Ezekiel Carrasco Work Phone: [facility] 05-14-2022 08:07-0400 Systolic blood pressure 129 mm[Hg] Dr. Ezekiel Carrasco Work Phone: [facility] 05-11-2022 12:39-0400 Body weight 66.[address] Ezekiel Carrasco Work Phone: [facility] 05-11-2022 12:39-0400 Heart rate 80 /min Dr. Ezekiel Carrasco Work Phone: [facility] 05-11-2022 12:39-0400 SaO2% (BldA) [Mass fraction] 96 % Dr. Ezekiel Carrasco Work Phone: [facility] 05-08-2022 00:43-0400 Inhaled oxygen flow rate 2 L/min Dr. Ezekiel Carrasco Work Phone: [facility] 05-07-2022 10:14-0400 Body temperature 96.6 [degF] Dr. Ezekiel Carrasco Work Phone: [facility] 05-07-2022 10:14-0400 Diastolic blood pressure 66 mm[Hg] Dr. Ezekiel Carrasco Work Phone: 9(040)975-818556 [place] [address] 05-07-2022 10:14-0400 Heart rate 67 /min Dr. Ezekiel Carrasco Work Phone: 0(486)017-301656 [place] [address] 05-07-2022 10:14-0400 Respiratory rate 16 /min Dr. Ezekiel Carrasco Work Phone: [facility] 05-07-2022 10:14-0400 Systolic blood pressure 129 mm[Hg] Dr. Ezekiel Carrasco Work Phone: 2(199)230-224856 [place] [address] 04-16-2022 14:11-0500 Inhaled oxygen flow rate 2 L/min Dr. Ezekiel Carrasco Work Phone: 1(026)280-485856 [place] [address] 03-30-2022 07:45-0500 Body height 167.[address] Ezekiel Carrasco Work Phone: [facility] 03-30-2022 07:45-0500 Body mass index (BMI) [Ratio] 23.7 kg/m2 Dr. Ezekiel Carrasco Work Phone: 9(439)838-347456 [place] [address] 03-30-2022 07:45-0500 Body temperature 97.6 [degF] Dr. Ezekiel Carrasco Work Phone: [facility] 03-30-2022 07:45-0500 Body weight 66.[address] Ezekiel Carrasco Work Phone: [facility] 03-30-2022 07:45-0500 Diastolic blood pressure 87 mm[Hg] Dr. Ezekiel Carrasco Work Phone: [facility] 03-30-2022 07:45-0500 Heart rate 107 /min Dr. Ezekiel Carrasco Work Phone: [facility] 03-30-2022 07:45-0500 Inhaled oxygen flow rate 2 L/min Dr. Ezekiel Carrasco Work Phone: [facility] 03-30-2022 07:45-0500 Respiratory rate 18 /min Dr. Ezekiel Carrasco Work Phone: [facility] 03-30-2022 07:45-0500 SaO2% (BldA) [Mass fraction] 99 % Dr. Ezekiel Carrasco Work Phone: [facility] 03-30-2022 07:45-0500 Systolic blood pressure 142 mm[Hg] Dr. Ezekiel Carrasco Work Phone: [facility] 03-29-2022 14:15-0500 Body mass index (BMI) [Ratio] 23.7 kg/m2 Dr. Ezekiel Carrasco Work Phone: [facility] 03-29-2022 14:15-0500 Body weight 66.[address] Ezekiel Carrasco Work Phone: [facility] 03-29-2022 14:15-0500 Diastolic blood pressure 64 mm[Hg] Dr. Ezekiel Carrasco Work Phone: [facility] 03-29-2022 14:15-0500 Heart rate 76 /min Dr. Ezekiel Carrasco Work Phone: [facility] 03-29-2022 14:15-0500 Inhaled oxygen flow rate 2 L/min Dr. Ezekiel Carrasco Work Phone: [facility] 03-29-2022 14:15-0500 Respiratory rate 20 /min Dr. Ezekiel Carrasco Work Phone: [facility] 03-29-2022 14:15-0500 SaO2% (BldA) [Mass fraction] 95 % Dr. Ezekiel Carrasco Work Phone: [facility] 03-29-2022 14:15-0500 Systolic blood pressure 107 mm[Hg] Dr. Ezekiel Carrasco Work Phone: [facility] 03-23-2022 14:03-0500 Body height 167.[address] Ezekiel Carrasco Work Phone: [facility] 03-23-2022 14:03-0500 Body mass index (BMI) [Ratio] 26.6 kg/m2 Dr. Ezekiel Carrasco Work Phone: [facility] 03-23-2022 14:03-0500 Body weight 74.[address] Ezekiel Carrasco Work Phone: [facility] 03-23-2022 14:03-0500 Diastolic blood pressure 73 mm[Hg] Dr. Ezekiel Carrasco Work Phone: [facility] 03-23-2022 14:03-0500 Heart rate 72 /min Dr. Ezekiel Carrasco Work Phone: [facility] 03-23-2022 14:03-0500 Respiratory rate 20 /min Dr. Ezekiel Carrasco Work Phone: [facility] 03-23-2022 14:03-0500 SaO2% (BldA) [Mass fraction] 94 % Dr. Eezkiel Carrasco Work Phone: [facility] 03-23-2022 14:03-0500 Systolic blood pressure 143 mm[Hg] Dr. Ezekiel Carrasco Work Phone: [facility] 03-22-2022 16:32-0500 Body mass index (BMI) [Ratio] 26.4 kg/m2 Dr. Ezekiel Carrasco Work Phone: [facility] 03-22-2022 16:32-0500 Body temperature 97.8 [degF] Dr. Ezekiel Carrasco Work Phone: [facility] 03-22-2022 16:32-0500 Body weight 74.[address] Ezekiel Carrasco Work Phone: [facility] 03-22-2022 16:32-0500 Diastolic blood pressure 87 mm[Hg] Dr. Ezekiel Carrasco Work Phone: [facility] 03-22-2022 16:32-0500 Heart rate 93 /min Dr. Ezekiel Carrasco Work Phone: [facility] 03-22-2022 16:32-0500 Inhaled oxygen flow rate 2 L/min Dr. Ezekiel Carrasco Work Phone: [facility] 03-22-2022 16:32-0500 Respiratory rate 20 /min Dr. Ezekiel Carrasco Work Phone: [facility] 03-22-2022 16:32-0500 SaO2% (BldA) [Mass fraction] 95 % Dr. Ezekiel Carrasco Work Phone: [facility] 03-22-2022 16:32-0500 Systolic blood pressure 145 mm[Hg] Dr. Ezekiel Carrasco Work Phone: [facility] 03-04-2022 16:23-0500 Inhaled oxygen flow rate 2 L/min Dr. Ezekiel Carrasco Work Phone: [facility] 03-04-2022 16:00-0500 Body temperature 98 [degF] Dr. Ezekiel Carrasco Work Phone: [facility] 03-04-2022 16:00-0500 Diastolic blood pressure 84 mm[Hg] Dr. Ezekiel Carrasco Work Phone: [facility] 03-04-2022 16:00-0500 Heart rate 90 /min Dr. Ezekiel Carrasco Work Phone: [facility] 03-04-2022 16:00-0500 SaO2% (BldA) [Mass fraction] 94 % Dr. Ezekiel Carrasco Work Phone: [facility] 03-04-2022 16:00-0500 Systolic blood pressure 129 mm[Hg] Dr. Ezekiel Carrasco Work Phone: [facility] 03-04-2022 13:43-0500 SaO2% (BldA) [Mass fraction] 98 % Dr. Ezekiel Carrasco Work Phone: [facility] 03-04-2022 11:47-0500 Heart rate 83 /min Dr. Ezekiel Carrasco Work Phone: 8(719)702-715956 [place] [address] 03-04-2022 11:47-0500 Respiratory rate 18 /min Dr. Ezekiel Carrasco Work Phone: 3(214)061-238956 [place] [address] 03-04-2022 10:00-0500 Body temperature 97.6 [degF] Dr. Ezekiel Carrasco Work Phone: 3(801)433-380156 [place] [address] 03-04-2022 10:00-0500 Diastolic blood pressure 89 mm[Hg] Dr. Ezekiel Carrasco Work Phone: 8(996)568-959756 [place] [address] 03-04-2022 10:00-0500 Systolic blood pressure 139 mm[Hg] Dr. Ezekiel Carrasco Work Phone: [facility] 03-03-2022 13:50-0500 Body height 167.[address] Ezekiel Carrasco Work Phone: [facility] 03-03-2022 13:50-0500 Body weight 69.[address] Ezekiel Carrasco Work Phone: [facility] 03-03-2022 02:55-0500 Inhaled oxygen concentration 4 % Dr. Ezekiel Carrasco Work Phone: [facility] 03-02-2022 16:29-0500 Body mass index (BMI) [Ratio] 24.8 kg/m2 Dr. Ezekiel Carrasco Work Phone: [facility] 03-02-2022 16:06-0500 Body temperature 97.5 [degF] Dr. Ezekiel Carrasco Work Phone: [facility] 03-02-2022 16:06-0500 Diastolic blood pressure 88 mm[Hg] Dr. Ezekiel Carrasco Work Phone: [facility] 03-02-2022 16:06-0500 Heart rate 84 /min Dr. Ezekiel Carrasco Work Phone: [facility] 03-02-2022 16:06-0500 Inhaled oxygen flow rate 3 L/min Dr. Ezekiel Carrasco Work Phone: [facility] 03-02-2022 16:06-0500 Respiratory rate 26 /min Dr. Ezekiel Carrasco Work Phone: [facility] 03-02-2022 16:06-0500 SaO2% (BldA) [Mass fraction] 92 % Dr. Ezekiel Carrasco Work Phone: [facility] 03-02-2022 16:06-0500 Systolic blood pressure 125 mm[Hg] Dr. Ezekiel Carrasco Work Phone: [facility] 03-02-2022 09:04-0500 Body height 167.[address] Ezekiel Carrasco Work Phone: [facility] 03-02-2022 09:04-0500 Body mass index (BMI) [Ratio] 24.8 kg/m2 Dr. Ezekiel Carrasco Work Phone: [facility] 03-02-2022 09:04-0500 Body weight 69.[address] Ezekiel Carrasco Work Phone: [facility] 01-06-2022 08:31-0500 Body height 167.[address] Ezekiel Carrasco Work Phone: [facility] Work Phone: 01-06-2022 08:24-0500 Body mass index (BMI) [Ratio] 27.9 kg/m2 Dr. Ezekiel Carrasco Work Phone: [facility] 01-06-2022 08:24-0500 Body weight 78.[address] Ezekiel Carrasco Work Phone: [facility] 01-06-2022 08:24-0500 Diastolic blood pressure 78 mm[Hg] Dr. Ezekiel Carrasco Work Phone: [facility] 01-06-2022 08:24-0500 Heart rate 71 /min Dr. Ezekiel Carrasco Work Phone: [facility] 01-06-2022 08:24-0500 Respiratory rate 18 /min Dr. Ezekiel Carrasco Work Phone: [facility] 01-06-2022 08:24-0500 SaO2% (BldA) [Mass fraction] 94 % Dr. Ezekiel Carrasco Work Phone: [facility] 01-06-2022 08:24-0500 Systolic blood pressure 133 mm[Hg] Dr. Ezekiel Carrasco Work Phone: [facility] 12-28-2021 12:34-0500 Diastolic blood pressure 86 mm[Hg] [facility] 12-28-2021 12:34-0500 Heart rate 85 /min [facility] 12-28-2021 12:34-0500 Respiratory rate 18 /min [facility] 12-28-2021 12:34-0500 SaO2% (BldA) [Mass fraction] 97 % [facility] 12-28-2021 12:34-0500 Systolic blood pressure 175 mm[Hg] [facility] 12-28-2021 09:44-0500 Body height 167.64 cm [facility] Work Phone: 12-28-2021 09:44-0500 Body mass index (BMI) [Ratio] 25.9 kg/m2 [facility] 12-28-2021 09:44-0500 Body temperature 96.1 [degF] [facility] 12-28-2021 09:44-0500 Body weight 72.9 kg [facility] 07-07-2021 08:23-0400 Body height 167.[address] Ezekiel Carrasco Work Phone: [facility] Work Phone: 07-07-2021 08:23-0400 Body weight 80.[address] Ezekiel Carrasco Work Phone: [facility] Work Phone: 07-07-2021 08:23-0400 Diastolic blood pressure 83 mm[Hg] Dr. Ezekiel Carrasco Work Phone: [facility] Work Phone: 07-07-2021 08:23-0400 Heart rate 77 /min Dr. Ezekiel Carrasco Work Phone: [facility] Work Phone: 07-07-2021 08:23-0400 Respiratory rate 18 /min Dr. Ezekiel Carrasco Work Phone: [facility] Work Phone: 07-07-2021 08:23-0400 SaO2% (BldA) [Mass fraction] 96 % Dr. Ezekiel Carrasco Work Phone: [facility] Work Phone: 07-07-2021 08:23-0400 Systolic blood pressure 142 mm[Hg] Dr. Ezekiel Carrasco Work Phone: [facility] Work Phone: 09-18-2020 08:58-0400 Body mass index (BMI) [Ratio] 31.6 kg/m2 Dr. Ezekiel Carrasco Work Phone: [facility] Work Phone: Encounters Encounter Date Encounter Type Care Provider Facility Start: 10-26-2024 End: 10-26-2024 ambulatory PADMINI CARRASCO Facility:[facility] [facility] Start: 10-22-2024 End: 10-22-2024 ambulatory Luigi Banks MD Work Phone: Radiation Oncology Comment on above: Patient Education (D ischarge teaching-completed radiation) Start: 10-19-2024 End: 10-19-2024 ambulatory Lab/[place] [facility] Work Phone: Hematology/Oncology Comment on above: Malignant neoplasm o f urinary bladder, unspecified site (HCC) (Primary Dx) Start: 10-18-2024 End: 10-18-[address] [facility] Facility:[facility] Start: 10-17-2024 End: 10-17-2024 [facility] Facility:[facility] Start: 10-16-2024 End: 10-16-2024 Patient encounter procedure Luigi Banks MD Work Phone: Radiation Oncology Comment on above: 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) Start: 10-16-2024 End: 10-16-2024 ambulatory LUIGI BANKS Facility:[facility] Start: 10-15-2024 End: 10-15-2024 ambulatory Treatment Rm 6 Miguel A [facility] Work Phone: Hematology/Oncology Comment on above: Malignant neoplasm o f urinary bladder, unspecified site (HCC) (Primary Dx); Malignant neoplasm of overlapping sites of bladder (HCC) Start: 10-12-2024 End: 10-12-2024 Patient encounter procedure Bob Otero Work Phone: Hematology/Oncology Start: 10-12-2024 End: 10-12-2024 ambulatory Lab/[place] [facility] [email or web address] Work Phone: Hematology/Oncology Comment on above: Malignant neoplasm o f prostate (HCC) (Primary Dx) Malignant neoplasm o f overlapping sites of bladder (HCC) (Primary Dx) Start: 10-11-2024 End: 10-11-[address] [facility] Facility:[facility] Start: 10-10-2024 End: 10-10-[address] 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) Start: 10-09-2024 End: 10-09-2024 ambulatory Lab/[place] [facility] Work Phone: Hematology/Oncology Comment on above: Malignant neoplasm o f overlapping sites of bladder (HCC) Start: 10-05-2024 End: 10-05-2024 ambulatory Lab/[place] [facility] Work Phone: Hematology/Oncology Comment on above: 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) Start: 10-05-2024 End: 10-05-2024 ambulatory PADMINI CARRASCO Facility:[facility] Start: 10-04-2024 End: 10-04-2024 ambulatory PAMDINI CARRASCO Facility:[facility] Start: 10-03-2024 End: 10-03-2024 ambulatory PADMINI CARRASCO Facility:[facility] Start: 10-02-2024 End: 10-02-2024 Patient encounter procedure Luigi Banks MD Work Phone: Radiation Oncology Comment on above: 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) Start: 10-02-2024 End: 10-02-2024 ambulatory PADMINI CARRASCO Facility:[facility] Start: 10-01-2024 End: 10-01-2024 ambulatory Lab/[place] [facility] Work Phone: Hematology/Oncology Comment on above: Malignant neoplasm o f overlapping sites of bladder (HCC) Start: 10-01-2024 End: 10-01-2024 ambulatory PADMINI CARRASCO Facility:[facility] Start: 09-28-2024 End: 09-28-2024 ambulatory Lab/[place] [facility] Work Phone: Hematology/Oncology Comment on above: Malignant neoplasm o f urinary bladder, unspecified site (HCC) (Primary Dx) Start: 09-27-2024 End: 09-27-2024 ambulatory PADMINI CARRASCO Facility:[facility] Start: 09-27-2024 End: 09-27-2024 ambulatory Treatment Rm 4 Miguel A [facility] Work Phone: Hematology/Oncology Comment on above: 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) Start: 09-26-2024 End: 09-26-2024 ambulatory PADMINI CARRASCO Facility:[facility] Start: 09-25-2024 End: 09-25-2024 Telephone encounter Wolf Palm RN Work Phone: Hematology/Oncology Comment on above: Care Coordination (C YCLE 1/DAY 1 POST TREATMENT CALL ) Start: 09-25-2024 End: 09-25-2024 Patient encounter procedure Luigi Banks MD Work Phone: Radiation Oncology Comment on above: 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) Start: 09-25-2024 End: 09-25-2024 ambulatory PADMINI CARRASCO Facility:[facility] Start: 09-24-2024 End: 09-24-2024 Orders Only Lakeisha Rivers DO Work Phone: Hematology/Oncology Comment on above: Malignant neoplasm o f urinary bladder, unspecified site (HCC) (Primary Dx); Malignant neoplasm of overlapping sites of bladder (HCC) Opened In Error Appointment Start: 09-21-2024 End: 09-21-[address] Padmini Carrasco MD Work Phone: -Radiology [facility] Start: 09-21-2024 End: 09-21-[address] Lakeisha Rivers DO -Radiology [facility] Work Phone: Start: 09-21-2024 End: 09-21-2024 ambulatory Padmini Carrasco Facility:[facility] Start: 09-18-2024 ambulatory PADMINI CARRASCO Fa cility:[facility] Start: 09-18-2024 End: 09-18-2024 Subsequent hospital visit by physician Ct [facility] (I-Stat) Work Phone: Cat Scan Comment on above: Malignant neoplasm o f urinary bladder, unspecified site (HCC) [C67.9] Start: 09-12-2024 End: 09-12-2024 ambulatory PADMINI CARRASCO Facility:[facility] Start: 09-07-2024 End: 09-19-2024 Patient encounter procedure Luigi Banks MD Work Phone: Radiation Oncology Start: 09-07-2024 End: 09-19-2024 Radiation Oncology Note Luigi Banks MD Work Phone: Radiation Oncology Comment on above: Simulation Note Treatment Planning Start: 09-07-2024 End: 09-07-2024 [facility] Facility:[facility] Start: 09-07-2024 End: 09-07-2024 Subsequent hospital visit by physician [facility] Mob 2 Work Phone: Radiology Comment on above: Malignant neoplasm o f overlapping sites of bladder (HCC) [C67.8] Start: 09-07-2024 End: 09-07-2024 Nursing evaluation of patient and report Nurse Trang [facility] Work Phone: Radiation Oncology Comment on above: 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 Start: 08-29-2024 End: 08-29-2024 Patient encounter procedure Stacy Gauthier MD Work Phone: Urology Comment on above: Malignant neoplasm o f urinary bladder, unspecified site (HCC) (Primary Dx); Hematuria, gross Start: 08-29-2024 End: 08-29-2024 ambulatory STACY Shannon ABRAHAN Facility:[facility] Start: 08-24-2024 End: 08-24-2024 Telephone encounter 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 Comment on above: CASE [id number] Update Start: 08-22-2024 End: 08-22-2024 Telephone encounter 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 Comment on above: CASE [id number] Discussion Start: 08-21-2024 End: 08-21-2024 Telephone encounter Stacy Gauthier MD Work Phone: Urology Comment on above: Surgical Followup; O rders Start: 08-21-2024 End: 08-21-2024 ambulatory STACY Shannon ABRAHAN Facility:[facility] Start: 08-16-2024 End: 08-16-2024 Admission to establishment Pst [place] Acc 1 Pre Surgical Testing Start: 08-16-2024 End: 08-16-2024 Patient encounter status Pst 1 [place] Work Phone: Start: 08-16-2024 End: 08-16-2024 ambulatory STACY Shannon ABRAHAN Pre Surgical Testing Comment on above: Preop testing (Prima ry Dx); 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 pectoris; Essential hypertension; Hyperlipidemia, [...] Start: 08-02-2024 End: 08-02-2024 ambulatory STACY GAUTHIER Facility:[facility] Start: 07-31-2024 End: 07-31-2024 ambulatory PADMINI CARRASCO Facility:[facility] Start: 07-31-2024 End: 07-31-2024 Subsequent hospital visit by physician Ct Prep [facility] Cat Scan Comment on above: Malignant neoplasm o f urinary bladder, unspecified site (HCC) [C67.9] Start: 07-26-2024 End: 07-26-2024 Chart abstracting Farheen Sommers RN Hematology/Oncology Start: 07-26-2024 End: 07-26-2024 ambulatory PADMINI CARRASCO Facility:[facility] Start: 07-26-2024 End: 07-26-2024 Patient encounter procedure Codey Christianson MD Work Phone: Hematology/Oncology Start: 07-26-2024 End: 07-26-2024 ambulatory Codey Christianson MD Work Phone: Hematology/Oncology Comment on above: Malignant neoplasm o f urinary bladder, unspecified site (HCC) (Primary Dx) Start: 07-09-2024 End: 07-09-[address] Padmini Carrasco MD Work Phone: [facility] Work Phone: Start: 07-09-2024 End: 07-09-[address] Padmini Carrasco MD -Laboratory [place] Work Phone: Start: 07-09-2024 End: 07-09-2024 ambulatory Padmini Carrasco Facility:[facility] Start: 06-27-2024 End: 06-28-2024 ambulatory Jose J Mcclendon Facility:[facility] Start: 06-27-2024 End: 06-28-2024 Evaluation and management of inpatient Dr. Jose J Mcclendon MD -Medical Surgical 3 Work Phone: Start: 06-27-2024 Admission to [facility] Dr. Jose J Mcclendon MD -Methods Time Analyst Work Phone: Start: 06-21-2024 End: 06-21-[address] Padmini Carrasco MD Work Phone: [facility] Work Phone: Start: 06-21-2024 End: 06-21-[address] Jose J Mcclendon MD -Laboratory Work Phone: Start: 06-21-2024 End: 06-21-2024 ambulatory Jose J Mcclendon Facility:[facility] Start: 06-19-[address] Quin Carrasco MD Work Phone: [facility] Start: 06-19-2024 End: 06-19-2024 Patient encounter procedure Nito ACUNA -[facility] Work Phone: Start: 06-19-2024 End: 06-19-2024 Patient encounter status Nito ACUNA [facility] Start: 06-19-2024 End: 06-19-[address] Padmini Carrasco MD Work Phone: [facility] Work Phone: Start: 05-28-2024 End: 05-28-[address] Jose J Mcclendon MD -Laboratory, [place] Work Phone: Start: 05-28-2024 End: 05-28-2024 ambulatory Jose J Mcclendon Facility:[facility] Start: 05-16-2024 End: 05-17-2024 Emergency department patient visit Dr. Padmini Carrasco MD Work Phone: -Emergency Department Work Phone: Start: 05-10-2024 End: 05-10-[address] Padmini Carrasco MD Work Phone: [facility] Work Phone: Start: 05-10-2024 End: 05-10-[address] Padmini Carrasco MD -Laboratory, [facility] Start: 05-10-2024 End: 05-10-2024 ambulatory Padmini Carrasco Facility:[facility] Start: 03-23-2024 End: 03-23-2024 Patient encounter procedure Carmina Tee NP-C -[facility] Work Phone: Start: 03-23-2024 End: 03-23-2024 ambulatory Padmini Carrasco [facility] Start: 02-21-2024 End: 02-21-2024 Patient encounter procedure Carmina Tee NP-C -Cat Scan, [facility] Work Phone: Start: 02-21-2024 End: 02-21-2024 ambulatory Padmini Carrasco Facility:[facility] Start: 02-02-2024 End: 02-02-[address] Marquise Barillas MD -[facility] Work Phone: Start: 02-02-2024 End: 02-02-2024 ambulatory Padmini Carrasco Facility:[facility] Start: 01-18-2024 Non-patient / Non-visit Dr. Alycia Barillas MD -[facility] Start: 01-18-2024 End: 01-18-2024 Admission to same day surgery center Dr. Marquise Barillas MD -Surgical Day Care Start: 01-18-2024 End: 01-18-2024 ambulatory Padmini Carrasco Facility:[facility] Start: 11-30-2023 Encounter for other preprocedural examination Marquise Barillas [facility] Start: 11-23-2023 End: 11-23-2023 ambulatory Padmini Carrasco Facility:[facility] Start: 11-09-2023 End: 11-09-2023 ambulatory Marquise Barillas Facility:[facility] Start: 10-27-2023 End: 10-27-2023 ambulatory Evgeny Jacobo Facility:[facility] Start: 10-24-2023 End: 10-24-2023 ambulatory Marquise Eran Facility:[facility] Start: 04-29-2023 Non-patient / Non-visit Dr. Rambo Carrasco Work Phone: [facility] Work Phone: Start: 04-29-2023 Non-patient / Non-visit Dr. Rambo Carrasco Work Phone: [facility] Start: 04-29-2023 End: 04-29-[address] Ezekiel Carrasco Work Phone: [facility] Work Phone: Start: 04-29-2023 End: 04-29-[address] Ezekiel Carrasco Work Phone: [facility]-Cardiovascul ar Services Work Phone: Start: 02-28-2023 End: 02-28-[address] Ezekiel Carrasco Work Phone: [facility] Work Phone: Start: 02-28-2023 End: 02-28-[address] Ezekiel Carrasco Work Phone: [facility] Work Phone: Start: 02-10-2023 End: 02-10-[address] Ezekiel Carrasco Work Phone: [facility] Work Phone: Start: 01-27-2023 End: 01-27-[address] Ezekiel Carrasco Work Phone: [facility]-Pulmonary Medicine [facility] Work Phone: Start: 12-27-2022 End: 12-27-[address] Ezekiel Carrasco Work Phone: [facility] Work Phone: Start: 12-22-2022 Non-patient / Non-visit Dr. Rambo Carrasco Work Phone: [facility] Start: 12-22-2022 End: 12-22-[address] Ezekiel Carrasco Work Phone: [facility] Work Phone: Start: 12-22-2022 End: 12-22-[address] Ezekiel Carrasco Work Phone: [facility]-Cardiovascul ar Services Work Phone: Start: 12-15-2022 End: 12-15-2022 ambulatory [facility] Work Phone: Start: 12-15-2022 End: 12-15-2022 Patient encounter procedure [facility] Work Phone: Start: 12-14-2022 End: 12-14-2022 ambulatory [facility] Work Phone: Start: 12-14-2022 End: 12-14-2022 Patient encounter procedure [facility] Start: 08-16-2022 End: 08-16-[address] Ezekiel Carrasco Work Phone: [facility] Work Phone: Start: 08-16-2022 End: 08-16-[address] Ezekiel Carrasco Work Phone: [facility]-Laboratory, [facility] Start: 07-28-2022 End: 07-28-[address] Ezekiel Carrasco Work Phone: [facility]-Pulmonary Medicine [facility] Work Phone: Start: 06-04-2022 Non-patient / Non-visit Dr. Rambo Carrasco Work Phone: [facility] Start: 06-04-2022 End: 06-04-[address] Ezekiel Carrasco Work Phone: [facility] Work Phone: Start: 06-04-2022 End: 06-04-[address] [facility] Start: 05-28-2022 Non-patient / Non-visit Dr. Rambo Carrasco Work Phone: [facility] Start: 05-21-2022 Non-patient / Non-visit Dr. Rambo Carrasco Work Phone: [facility] Start: 05-21-[address] Dk Carrasco Work Phone: [facility] Start: 05-17-2022 End: 05-17-[address] Ezekiel Carrasco Work Phone: [facility] Work Phone: Start: 05-17-2022 End: 05-17-[address] [facility] Start: 05-14-2022 Non-patient / Non-visit Dr. Rambo Carrasco Work Phone: [facility] Start: 05-14-[address] Dk Carrasco Work Phone: [facility] Start: 05-12-2022 Non-patient / Non-visit Dr. Rambo Carrasco Work Phone: [facility] Start: 05-11-2022 End: 05-11-[address] Ezekiel Carrasco Work Phone: [facility] Work Phone: Start: 05-11-2022 End: 05-11-[address] Ezekiel Carrasco Work Phone: [facility]-Pulmonary Services/Neurology Start: 05-07-2022 Non-patient / Non-visit Dr. Rambo Carrasco Work Phone: [facility] Start: 05-07-2022 End: 05-07-[address] Ezekiel Carrasco Work Phone: [facility] Work Phone: Start: 05-07-2022 End: 05-07-[address] Ezekiel Carrasco Work Phone: [facility] Start: 05-03-2022 Non-patient / Non-visit Dr. Rambo Carrasco Work Phone: [facility] Start: 05-03-2022 End: 05-03-[address] Ezekiel Carrasco Work Phone: [facility] Work Phone: Start: 05-03-2022 End: 05-03-[address] E[facility]iel [facility] Start: 04-30-2022 Non-patient / Non-visit Dr. Rambo Carrasco Work Phone: [facility] Start: 04-23-2022 Non-patient / Non-visit Dr. Rambo Carrasco Work Phone: [facility] Start: 04-16-2022 Non-patient / Non-visit Dr. Rambo Carrasco Work Phone: [facility] Start: 04-09-2022 Non-patient / Non-visit Dr. Rambo Carrasco Work Phone: [facility] Start: 04-09-[address] Dk [facility]rasco [facility] Start: 04-06-2022 End: 04-06-[address] Ezekiel Carrasco Work Phone: [facility] Work Phone: Start: 04-06-2022 End: 04-06-[address] Ezekiel Carrasco Work Phone: [facility] Start: 04-02-2022 End: 04-02-[address] Ezekiel Carrasco Work Phone: [facility] Work Phone: Start: 04-02-2022 End: 04-02-[address] Ezekiel Carrasco Work Phone: [facility]-Laboratory Start: 03-31-2022 Non-patient / Non-visit Dr. Rambo Carrasco Work Phone: [facility] Start: 03-31-2022 Non-patient / Non-visit Dr. Rambo Carrasco Work Phone: [facility] Start: 03-31-2022 Non-patient / Non-visit [facility] Rambo [facility]rasco Work Phone: [facility] Start: 03-31-2022 End: 03-31-[address] Ezekiel Carrasco Work Phone: [facility] Work Phone: Start: 03-31-2022 End: 03-31-[address] Ezekiel Carrasco Work Phone: [facility]-Cardiovascul ar Services Start: 03-30-2022 End: 03-30-[address] Ezekiel Carrasco Work Phone: [facility] Vascular Surgery Start: 03-30-2022 End: 03-30-[address] Ezekiel Carrasco Work Phone: [facility]-Pulmonary Medicine [facility] Start: 03-29-2022 End: 03-29-[address] Ezekiel Carrasco Work Phone: [facility] Work Phone: Start: 03-29-2022 End: 03-29-[address] Ezekiel Carrasco Work Phone: [facility] Start: 03-23-2022 End: 03-23-[address] Ezekiel Carrasco Work Phone: [facility] Start: 03-22-2022 End: 03-22-2022 Emergency department patient visit Dr. Ezekiel Carrasco Work Phone: [facility]-Emergency Department Start: 03-18-2022 End: 03-18-[address] Ezekiel Carrasco Work Phone: [facility] Work Phone: Start: 03-18-2022 End: 03-18-[address] Ezekiel Carrasco Work Phone: [facility] Start: 03-10-2022 End: 03-10-[address] Ezekiel Carrasco Work Phone: [facility] Work Phone: Start: 03-10-2022 End: 03-10-[address] Ezekiel Carrasco Work Phone: [facility] Start: 03-04-2022 Non-patient / Non-visit Dr. Rambo Carrasco Work Phone: [facility] Inpatient Physicians Start: 03-03-2022 Non-patient / Non-visit Dr. Rambo Carrasco Work Phone: [facility] Inpatient Physicians Start: 03-02-2022 Non-patient / Non-visit Dr. Rambo Carrasco Work Phone: [facility] Inpatient Physicians Start: 03-02-2022 End: 03-04-2022 Evaluation and management of inpatient Dr. Ezekiel Carrasco Work Phone: [facility]-Progressive Care Unit Start: [address] Dk Carrasco Work Phone: [facility]-Physical Therapy Start: 02-25-2022 End: 02-25-[address] Ezekiel Carrasco Work Phone: [facility] Work Phone: Start: 02-25-2022 End: 02-25-[address] Ezekiel Carrasco Work Phone: [facility] Start: 02-03-2022 Orders Only Jamin hernandez MD Work Phone: Vascular Surg Dept Comment on above: Ruptured abdominal a ortic aneurysm (AAA), unspecified part (Primary Dx) Start: 01-25-2022 End: 01-25-[address] Ezekiel Carrasco Work Phone: [facility] Work Phone: Start: 01-25-2022 End: 01-25-[address] [facility] Start: 01-25-2022 Telephone encounter Holly cervantes MD Work Phone: Cardiology Comment on above: Surgical Followup Start: 01-21-2022 End: 01-21-[address] Ezekiel Carrasco Work Phone: [facility] Work Phone: Start: 01-21-2022 End: 01-21-[address] Ezekiel Carrasco Work Phone: [facility] Start: 01-06-2022 End: 01-06-[address] Ezekiel Carrasco Work Phone: [facility] Start: 01-06-2022 End: 01-06-[address] Ezekiel Carrasco Work Phone: [facility] Start: 01-01-2022 Orders Only Jamin hernandez MD Work Phone: Vascular Surg Dept Comment on above: Abdominal aortic ane urysm (AAA) without rupture, unspecified part (Primary Dx); Edema of abdomen Appointment Start: 12-28-2021 ambulatory Venita Shah APRN.CNP Work Phone: Critical Care Start: 12-28-2021 End: 12-28-2021 Emergency department patient visit [facility]-Emergency Department Start: 12-22-2021 End: 12-22-2021 ambulatory [facility] Work Phone: Start: 12-22-2021 End: 12-22-2021 Patient encounter procedure [facility] Start: 09-23-2021 End: 09-23-[address] Ezekiel Carrasco Work Phone: [facility] Work Phone: Start: 09-23-2021 End: 09-23-[address] Ezekiel Carrasco Work Phone[facility] Start: 08-20-2021 End: 08-20-[address] Ezekiel Carrasco Work Phone[facility] Start: 07-07-2021 End: 07-07-[address] Ezekiel Carrasco Work Phone: [facility] Start: 05-11-2021 Telephone encounter Ezekiel Sepulveda MD Work Phone: Vascular Surg Dept Comment on above: Patient Update Start: 02-03-2021 Encounter for other preprocedural examination STACY GAUTHIER [facility] Start: 02-09-2019 Patient encounter status Dk Sepulveda MD Work Phone: [place] Procedures Date Procedure Procedure Detail Performing Clinician [...] P,Tdap,Td Vaccine (2 - Td or Tdap) [place] Start: 07-27-2027 Diabetes Screening Diabetes Screenin g [place] Start: 10-15-2025 Complete blood count Hemoglobin/Miguel A [facility] Start: 10-09-2025 Complete blood count Hemoglobin/Miguel A [facility] Start: 10-01-2025 Complete blood count Hemoglobin/Miguel A [facility] Start: 10-01-2025 Creatinine measurement Serum Creatin ine [place] Start: 09-27-2025 Creatinine measurement Serum Creatin ine [place] Start: 09-24-2025 Complete blood count Hemoglobin/Miguel A [facility] Start: 09-24-2025 Creatinine measurement Serum Creatin ine [place] Start: 09-05-2025 Complete blood count Hemoglobin/Miguel A [facility] [place] Start: 09-05-2025 Creatinine measurement Serum Creatin ine [place] Start: 07-31-2025 Screening for malign ant neoplasm of lung Lung Cancer Screening [place] Start: 07-26-2025 Complete blood count Hemoglobin/Miguel A [facility] Start: 07-26-2025 Creatinine measurement Serum Creatin ine [place] Start: 01-03-2025 DIABETES SCREEN DIABETES SCREEN [facility] Start: 01-01-2025 DIABETES SCREEN DIABETES SCREEN [facility] Start: 12-28-2024 DIABETES SCREEN DIABETES SCREEN [facility] Start: 11-19-2024 End: 11-19-2024 Patient encounter procedure 11/19/2024 9:00 AM EDT Office Visit Radiation Oncology [address] [place] [address] Luigi Banks MD [address] [place] [address] 4 wk follow Radiation Oncology Comment on above: 4 wk follow Start: 11-09-2024 End: 11-09-2024 ambulatory 11/09/2024 11:00 AM EDT Visit (SP) Office Hematology/Oncology [address] [place] [address] Lakeisha Rivers DO [address] [place] [address] 8 WK OV* Hematology/Oncology Comment on above: 8 WK OV* Start: 10-22-2024 End: 10-22-2024 Patient encounter procedure Radiation Oncology Comment on above: Con Chemo Start: 10-19-2024 End: 10-19-2024 ambulatory 10/19/2024 4:00 PM EDT [facility] Hematology/Oncology [address] [place] [address] Wstr, Lab/[place] [facility] [address] [place] [address] DC CADD* Hematology/Oncology Comment on above: DC CADD* Start: 10-19-2024 End: 10-19-2024 Patient encounter procedure 10/19/2024 10:15 AM EDT Appointment Radiation Oncology [address] [place] [address] Con Chemo Radiation Oncology Comment on above: Con Chemo Start: 10-18-2024 End: 10-18-2024 Patient encounter procedure 10/18/2024 10:15 AM EDT Appointment Radiation Oncology [address] [place] [address] Con Chemo Radiation Oncology Comment on above: [...] Appointment Radiation Oncology [address] [place] [address] Con Chemo Radiation Oncology Comment on above: Con Chemo Start: 10-15-2024 End: 10-15-2024 ambulatory Hematology/Oncology Comment on above: D22 CBC/CMP/QMO 5FU/ 2-2(PICC)ON XRT* D22(SO)CBC/CMP(S)(PI CC)/QMO 5FU/2-2/ON XRT* D22(SO)REDRAW CBC/CM P(S)(PICC)/QMO 5FU/2-2/ON XRT* Start: 10-12-2024 End: 10-12-2024 Patient encounter procedure 10/12/2024 10:15 AM EDT Appointment Radiation Oncology [address] [place] [address] Con Chemo Radiation Oncology Comment on above: Con Chemo Start: 10-12-2024 End: 10-12-2024 ambulatory Hematology/Oncology Comment on above: 4 WK OV/CHEMO 10/15* M ASCI (PICC)/DRESSING MCKINLEY GE* Start: 10-11-2024 End: 10-11-2024 Patient encounter procedure 10/11/2024 10:15 AM EDT Appointment Radiation Oncology [address] [place] [address] Con Chemo Radiation Oncology Comment on above: Con Chemo Start: 10-10-2024 End: 10-10-2024 Patient encounter procedure 10/10/2024 10:15 AM EDT Appointment Radiation Oncology [address] [place] [address] Con Chemo Radiation Oncology Comment on above: Con Chemo Start: 10-09-2024 End: 10-09-2024 Patient encounter procedure Radiation Oncology Comment on above: Con Chemo Location: W-ON TREAT MENT VISIT Start: 10-09-2024 End: 10-09-2024 ambulatory Hematology/Oncology Comment on above: D15 CBC(PICC)/DRESSI NG CHANGE* D22 CBC/CMP(PICC)/DR ARANA CHANGE* D15(SO)CBC(PICC)/DIDIER SSIAUTUMN CHANGE* Start: 10-08-2024 Influenza vaccination Influenza Vacc ine (#1) [place] Start: 10-05-2024 End: 10-05-2024 ambulatory 10/05/2024 10:45 AM EDT Infusion Center Hematology/Oncology [address] [place] [address] Wstr, Lab/[place] c [address] [place] [address] PICC DRESSING CHANGE Hematology/Oncology Comment on above: PICC DRESSING CHANGE Start: 10-05-2024 End: 10-05-2024 Patient encounter procedure 10/05/2024 10:15 AM EDT Appointment Radiation Oncology [address] [place] [address] Con Chemo Radiation Oncology Comment on above: Con Chemo Start: 10-04-2024 End: 10-04-2024 Patient encounter procedure 10/04/2024 10:15 AM EDT Appointment Radiation Oncology [address] [place] [address] Con Chemo Radiation Oncology Comment on above: Con Chemo Start: 10-03-2024 End: 10-03-2024 Patient encounter procedure 10/03/2024 10:15 AM EDT Appointment Radiation Oncology [address] [place] [address] Con Chemo Radiation Oncology Comment on above: [...] Radiation Oncology [address] [place] [address] Con Chemo Radiation Oncology Comment on above: Con Chemo Start: 09-28-2024 End: 09-28-2024 ambulatory Hematology/Oncology Comment on above: DC CADD* DC CADD*/PICC DRESSI NG CHANGE Start: 09-28-2024 End: 09-28-2024 Patient encounter procedure 09/28/2024 10:15 AM EDT Appointment Radiation Oncology [address] [place] [address] Con Chemo Radiation Oncology Comment on above: Con Chemo Start: 09-27-2024 End: 09-27-2024 ambulatory 09/27/2024 9:45 AM EDT Infusion Center Hematology/Oncology [address] [place] [address] Wstr, Lab/[place] [facility] [address] [place] [address] BMP* POSSIBLE HYDRATION Hematology/Oncology Comment on above: BMP* POSSIBLE HYDRAT ION Start: 09-27-2024 End: 09-27-2024 Patient encounter procedure Radiation Oncology Comment on above: Con Chemo Con Chemo. today onl y Start: 09-26-2024 End: 09-26-2024 Patient encounter procedure 09/26/2024 10:15 AM EDT Appointment Radiation Oncology [address] [place] [address] Con Chemo Radiation Oncology Comment on above: Con Chemo Start: 09-25-2024 End: 09-25-2024 Patient encounter procedure Radiation Oncology Comment on above: Con Chemo Location: W-ON TREAT MENT VISIT Start: 09-24-2024 End: 09-24-2024 Patient encounter procedure Radiation Oncology Comment on above: con chemo tent time wants AM times con chemo Start: 09-24-2024 End: 09-24-2024 ambulatory 09/24/2024 11:00 AM EDT Infusion Center Hematology/Oncology [address] [place] [address] START QMO 5FU/1-2(PICC)ON XRT* Hematology/Oncology Comment on above: START QMO 5FU/1-2(PI BRIANNA)ON XRT* Start: 09-18-2024 End: 09-18-2024 Patient encounter procedure 09/18/2024 9:00 AM EDT Appointment Cat Scan [address] [facility] [place], [place] [id number] Malignant neoplasm of urinary bladder, unspecified site (HCC) [C67.9] Cat Scan Comment on above: Malignant neoplasm o f urinary bladder, unspecified site (HCC) [C67.9] Start: 09-17-2024 End: 09-17-2024 Patient encounter procedure Radiation Oncology Comment on above: con chemo tent time con chemo tent time wants AM times Start: 09-13-2024 End: 09-13-2024 Patient encounter procedure 09/13/2024 1:30 PM EDT Office Visit Urology [address] [id number] Tc Nath MD [address] [place] [id number] CONSULT TO UROLOGY Urology Comment on above: CONSULT TO UROLOGY Start: 09-12-2024 End: 09-12-2024 ambulatory 09/12/2024 10:30 AM EDT [facility] Hematology/Oncology [address] [place], [place] [id number] Wstr, Software Firmware Engineer [facility] [address] [place], [place] [id number] CHEMO ED-5FU*rescheduled from 09/07 Hematology/Oncology Comment on [...] Oncology [address] [place] [address] Wstr, Nurse Radt [facility] [address] [place] [address] Location: W-NURSING Radiation Oncology Comment on above: Location: W-NURSING Start: 09-06-2024 End: 09-06-2024 Patient encounter procedure 09/06/2024 10:30 AM EDT Office Visit Radiation Oncology [address] [place] [address] Luigi Banks MD [address] [place] [address] Malignant neoplasm of urinary bladder, unspecified site (HCC) [C67.9] Radiation Oncology Comment on above: Malignant neoplasm o f urinary bladder, unspecified site (HCC) [C67.9] Start: 09-05-2024 End: 09-05-2024 ambulatory 09/05/2024 2:00 PM EDT Visit (SP) Office Hematology/Oncology [address] [place] [address] Lakeisha Rivers DO [address] [place] [address] transfer of care from [facility] Hematology/Oncology Comment on above: transfer of care fabiola bailon [facility] Start: 09-05-2024 End: 12-05-2024 Chronic hepatitis differentiation between hepatitis B and C virus panel - Serum or Plasma [place] Comment on above: Expected: 09/05/2024 , Expires: 12/05/2024 Start: 09-05-2024 End: 12-05-2024 [id number]/[id number] GENOTYPING PANEL [facility] Work Phone: Comment on above: Expected: 09/05/2024 , Expires: 12/05/2024 Start: 09-04-2024 End: 12-04-2024 Basic metabolic 2000 panel - Serum or Plasma BASIC METABOLIC PANEL Lab Routine Malignant neoplasm of urinary bladder, unspecified site (HCC) Other hydronephrosis Expected: 09/04/2024, Expires: 12/04/2024 [place] Comment on above: Expected: 09/04/2024 , Expires: 12/04/2024 Start: 09-04-2024 End: 09-20-2025 CT Abdomen and Pelvis WO contrast CT ABD/PEL WO IVCON Radiology Routine Malignant neoplasm of urinary bladder, unspecified site (HCC) Other hydronephrosis Expected: 09/04/2024, Expires: 09/20/2025 [facility] Work Phone: Comment on above: Expected: 09/04/2024 , Expires: 09/20/2025 Start: 08-21-2024 End: 08-21-2024 Admission to same day surgery center 08/21/2024 3:25 PM EDT - 08/21/2024 4:40 PM EDT Surgery [address] [address] Stacy Gauthier MD [address] [place] [address] CYSTOSCOPY RIGID [facility] Comment on above: CYSTOSCOPY RIGID Start: 08-21-2024 Subsequent hospital visit by physician 08/21/2024 3:25 PM EDT Hospital Encounter [address] [address] Stacy Gauthier MD [address] [place] [address] Malignant neoplasm of urinary bladder, unspecified site (HCC) [C67.9], Gross hematuria [R31.0] [facility] Comment on above: Malignant neoplasm o [...] Routine Hematuria, gross Expected: 08/16/2024, Expires: 11/15/2024 [place] Comment on above: Expected: 08/16/2024 , Expires: 11/15/2024 Start: 08-16-2024 End: 08-16-2024 ambulatory 08/16/2024 10:00 AM EDT PAT Pre Surgical Testing [address] [place] [address] PAT CYSTOSCOPY TRANS URETHRAL RESECTION OF A BLADDER TUMOR LEFT URETERAL STENT INSERTION Pre Surgical Testing Comment on above: PAT CYSTOSCOPY TRANS URETHRAL RESECTION OF A BLADDER TUMOR LEFT URETERAL STENT INSERTION Start: 08-02-2024 End: 08-02-2024 Patient encounter procedure 08/02/2024 2:15 PM EDT Office Visit Urology [address] [place] [address] Stacy Gauthier MD [address] [place] [address] bladder cancer Urology Comment on above: bladder cancer Start: 07-31-2024 End: 07-31-2024 Patient encounter procedure Cat Scan Comment on above: CT ABD/PEL W IVCON Start: 06-28-2024 Chemotherapy care management [facility] Start: 06-28-2024 End: 06-28-2024 Patient discharge [facility] Start: 06-28-2024 Inhalation therapy procedure [facility] Start: 06-27-2024 Measuring intake and output [facility] Start: 06-27-2024 Ambulation therapy management [facility] Start: 06-27-2024 Deep breathing and coughing exercises [facility] Start: 06-27-2024 Incentive spirometry [facility] Start: 06-27-2024 Oxygen therapy [facility] Start: 06-27-2024 Provision of activit y privileges [facility] Start: 06-27-2024 Assessment of risk o f venous thromboembolism [facility] Start: 06-27-2024 End: 06-27-2024 Following clinical pathway protocol [facility] Start: 06-27-2024 Taking patient vital signs [facility] Start: 06-27-2024 Vital signs measurements [facility] Start: 06-27-2024 End: 06-27-2024 [facility] Start: 06-27-2024 Admission procedure [facility] Start: 06-27-2024 Anes transurethral resection of bladder tumor ANESTH BLADDER TUMOR SURG [facility] Start: 06-27-2024 Cystourethroscopy w/ dest &/rmvl tumor large CYSTOSCOPY AND TREATMENT [facility] Start: 06-27-2024 Transurethral resect ion of bladder neoplasm Cysto,Transurethal Resec Bladder,Olympus (Not Applicable) [facility] Start: 06-27-2024 Ambulation without limitation [facility] Start: 06-27-2024 Medication education [facility] Start: 06-27-2024 Patient discharge [facility] Start: 06-27-2024 Planned voiding [facility] Start: 06-27-2024 Taking patient vital signs [facility] Start: 06-27-2024 [facility] Start: 06-27-2024 [facility] Start: 05-16-2024 End: 05-17-2024 [facility] Start: 04-09-2024 Lipid panel Lipid Screening [facility] Start: 04-09-2024 LIPID SCREEN LIPID SCREEN [place] Start: 02-08-2024 Advance Directive Discussion Advance Directive Discussion [place] Start: 01-18-2024 Anesthesia hernia re pair lower abdomen nos ANESTH REPAIR OF HERNIA [facility] Start: 01-18-2024 Rpr 1st ingun hrna a ge 5 yrs/> reducible PRP I/SHILPI INIT REDUC >5 YR [facility] Start: 01-18-2024 Patient discharge [facility] Start: 10-09-2023 Covid-19 Vaccine ( season) Covid-19 Vaccine () [place] Start: 02-03-2023 BP CONTROLLED (<130/80) BP CONTROLLE D (<130/80) [place] Start: 05-11-2022 Exercise tolerance test [facility] Start: 05-03-2022 Measurement of respi ratory function [facility] Start: 04-09-2022 DIABETES SCREEN DIABETES SCREEN [facility] Start: 03-30-2022 Patient referral [facility] Work Phone: Start: 03-04-2022 Patient discharge [facility] Start: 03-03-2022 Referral to occupati onal therapist [facility] Start: 03-03-2022 Referral to service [facility] Start: 03-03-2022 Referral to service [facility] Start: 03-02-2022 Following clinical p athway protocol [facility] Start: 03-02-2022 Assessment of risk o f venous thromboembolism [facility] Start: 03-02-2022 Catheterization of vein [facility] Start: 03-02-2022 Elevation of head of bed [facility] Start: 03-02-2022 Incentive spirometry [facility] Start: 03-02-2022 Inhalation therapy procedure [facility] Start: 03-02-2022 Insertion of cathete r into peripheral vein [facility] Start: 03-02-2022 Oxygen therapy [facility] Start: 03-02-2022 Patient education [facility] Start: 03-02-2022 Physiotherapy of chest [facility] Start: 03-02-2022 Providing care accor ding to standard [facility] Start: 03-02-2022 Referral to service [facility] Start: 03-02-2022 [facility] Start: 03-02-2022 Verification routine [facility] Start: 03-02-2022 Following clinical p athway protocol [facility] Start: 03-02-2022 Legionella pneumophi la Ag [Presence] in Urine [facility] Start: 03-02-2022 Streptococcus pneumo niae antigen assay [facility] Start: 03-02-2022 [facility] Start: 03-02-2022 Admission procedure [facility] Start: 03-02-2022 End: 03-02-2022 [facility] Start: 03-02-2022 Patient referral to dietitian [facility] Start: 02-07-2022 ADVANCE DIRECTIVE DISCUSSION ADVANCE DIRECTIVE DISCUSSION [place] Start: 02-07-2022 DEPRESSION ASSESSMENT DEPRESSION ASS ESSMENT [place] Start: 10-08-2021 Influenza vaccination INFLUENZA (#1) [place] Start: 02-07-2021 ADVANCE DIRECTIVE DISCUSSION ADVANCE DIRECTIVE DISCUSSION [place] Start: 02-07-2021 DEPRESSION ASSESSMENT DEPRESSION ASS ESSMENT [place] Start: 04-09-2020 Hepatitis B surface antibody level LDL CHOLESTEROL [place] Start: 02-16-2020 Adult depression scr eening assessment DEPRESSION SCREENING [place] Start: 11-18-2019 Colonoscopy COLONOSCOPY [place] Start: 11-18-2019 COLORECTAL CANCER SCREENING COLORECTAL CANCER SCREENING [place] Start: 11-18-2019 Screening for malign ant neoplasm of colon [place] Start: 03-10-2015 Medicare Annual Well ness Visit Medicare Annual Wellness Visit [place] Start: 2015 PNEUMOVAX AGE 65 AND OVER WITH 5YR LOOKBACK (#1) PNEUMOVAX AGE 65 AND OVER WITH 5YR LOOKBACK (#1) [place] Start: 02-07-2015 Medicare Annual Well ness Visit Medicare Annual Wellness Visit [place] Start: 2010 RSV Vaccine (1 - Ris k 60-74 years 1-dose series) RSV Vaccine (1 - Risk 60-74 years 1-dose series) [place] Start: 2005 Influenza vaccination LUNG CANCER [facility] Start: 02-27-2000 Influenza vaccination LUNG CANCER [facility] Start: 02-27-2000 SHINGRIX VACCINE (1 of 2) SANCHEZ GRIX VACCINE (1 of 2) [place] Start: 1995 COLOGUARD (FIT-DNA) COLOGUARD (FIT-D NA) [place] Start: [address] COLONOGRAPHY [facility] Start: 1995 FECAL OCCULT BLOOD FECAL OCCULT BLOO D [place] Start: 1995 Screening for malign ant neoplasm of colon [place] Start: 1995 SIGMOIDOSCOPY SIGMOIDOSCOPY [facility] Start: 02-27-1980 Zoledronic acid therapy ALPHA- 1 ANTITRYPSIN DEFICIENCY SCREENING [place] Start: 1969 Shingrix Vaccine (1 of 2) Sanchez grix Vaccine (1 of 2) [place] Start: 1969 Urine microalbumin profile DTAP,TDAP ,TD (1 - Tdap) [place] Start: 02-27-1968 ANNUAL PCP TEAM GRAIN BLENDER AINSLEY DISEASE VISIT ANNUAL PCP TEAM CHRONIC DISEASE VISIT [place] Start: 02-27-1968 Anxiety Screening Anxiety Screening [place] Start: 02-27-1968 BP CONTROLLED (<130/80) BP CONTROLLE D (<130/80) [place] Start: 02-27-1968 Depression Screening Depression Scre ening [place] Start: 02-27-1968 HEPATITIS C SCRE[facility] [place] Start: 02-27-1968 Hepatitis C screening Hepatitis C Sc [facility] Start: 02-27-1960 Diabetic foot examination Diabetic F oot Exam [place] Start: 02-27-1960 Glaucoma screening Dilated Retinal E xam [place] Start: 02-27-1960 Hepatitis B screening Urine Albumin:Creatinine Ratio [place] Start: 02-27-1956 PNEUMOCOCCAL: 65+ (1 - PCV) PNEUMOCOCCAL: 65+ (1 - PCV) [place] Start: 1955 COVID-19 VACCINE (1) COVID-19 VACCIN E (1) [place] Start: 1955 Hemoglobin A1c measurement HbA1C [place] Start: 1950 COVID-19 VACCINE (#1) COVID-19 VACCI NE (#1) [place] Bacteria identified in Sputum by Respiratory culture [facility] Blood chemistry [facility] CT Abdomen and Pelvi s WO contrast CT ABD/PEL WO IVCON Radiology Routine Malignant neoplasm of urinary bladder, unspecified site (HCC) Other hydronephrosis 09/18/2024 9:19 AM EDT [facility] Work Phone: CT Chest [facility] Guidance for percuta neous placement of nephrostomy tube of Kidney IR NEPHROSTOMY TUBE PLACE Radiology Routine Malignant neoplasm of overlapping sites of bladder (HCC) ROSALIE (acute kidney injury) Hydroureter on left Ordered: 09/05/2024 [place] Comment on above: Ordered: 09/05/2024 H&P for surgery H&P FOR SURGERY Procedures Routine Malignant neoplasm of urinary bladder, unspecified site (HCC) Hematuria, gross Ordered: 08/13/2024 [facility] Work Phone: Comment on above: Ordered: 08/13/2024 Patient Education [facility] Work Phone: Patient referral [facility] Work Phone: Respiratory Culture Respiratory Culture [facility] UA DIP, URINE (POC) UA DIP, URIN E (POC) Lab Routine Malignant neoplasm of urinary bladder, unspecified site (HCC) Nocturia Hematuria, gross Ordered: 08/02/2024 [facility] Work Phone: Comment on above: Ordered: 08/02/2024 Urine culture [facility] End: 01-01-2023 US ABD AORTA COMPLETE VAS LAB US ABD AORTA COMPLETE VAS LAB Vascular Lab Routine Abdominal aortic aneurysm (AAA) without rupture, unspecified part Edema of abdomen 1 Occurrences starting 01/01/2022 until 01/01/2023 [facility] Work Phone: Comment on above: 1 Occurrences starti ng 01/01/2022 until 01/01/[address] [facility] End: 10-05-2025 US Kidney - bilateral and Urinary bladder US KIDNEY/BLADDER Radiology STAT Malignant neoplasm of overlapping sites of bladder (HCC) ROSALIE (acute kidney injury) Hydroureter on left 1 Occurrences starting 09/05/2024 until 10/05/2025 [facility] Work Phone: Comment on above: 1 Occurrences starti ng 09/05/2024 until 10/05/[address] & VAS [facility] Immunizations Immunization Date Immunization Notes Care Provider Fa cili 01-11-2024 influenza virus vacc ine, unspecified formulation Codey Christianson MD Work Phone: [place] Payers Date Payer Category Payer Self-pay [id number] 2015 Medicare MEDICARE MEDICAR E A AND B [id number] 2015-Present [phone] [place] [address] Medicare [id number] 2015 Medicare [id number] 2015 Medicare [id number] 2005 Unknown [facility] [id number] 2005-Present [phone] [address] [place] [address] O [id number] Unknown [facility] *DO NOT USE* [id number] Unknown [id number] [id number]2 Unknown [id number] 2.16.840.1.337346.3.579.2.462 Unknown [id number] 2.16.840.1.308750.3.579.2.462 Unknown [id number] 2.16.840.1.651165.3.579.2.462 Unknown [id number] 2.16.840.1.445221.3.579.2.462 Unknown [id number] 2.16.840.1.617663.3.579.2.462 Unknown [id number] 2.16.840.1.031835.3.579.2.462 Unknown [id number] 2.16.840.1.542958.3.579.2.462 Unknown [id number] 2.16.840.1.703836.3.579.2.462 Unknown [id number] 2.16.840.1.513175.3.579.2.462 Unknown [id number] 2.16.840.1.103418.3.579.2.462 Unknown [id number] 2.16.840.1.074923.3.579.2.462 Unknown [id number] 2.16.840.1.335882.3.579.2.462 Unknown [id number] 2.16.840.1.636577.3.579.2.462 Unknown [id number] 2.16.840.1.486503.3.579.2.462 Unknown [id number] 2.16.840.1.992637.3.579.2.462 Unknown [id number] 2.16.840.1.876618.3.579.2.462 Unknown [id number] 2.16.840.1.941755.3.579.2.462 Unknown [id number] 2.16.840.1.422864.3.579.2.462 Unknown [id number] 2.16.840.1.140035.3.579.2.462 Social History Date Type Detail Facility [facility] [place] Work Phone: End: 01-30-2019 History of tobacco use Current smoker [place] Work Phone: Start: 01-30-1979 End: 01-30-2019 History of tobacco use Cigarette Smoker [place] Work Phone: Start: 04-17-2021 End: 10-12-2024 Alcohol intake Current non-drinker of alcohol (finding) [place] Start: 08-11-2012 End: 12-28-2021 Tobacco Comment started smoking 15yo, usually 1 PPD [place] Start: 1950 Sex Assigned At Not on file [facility] Start: 04-07-2021 End: 12-28-2021 Exposure to SARS-CoV-2 (event) Not sure [place] Start: 07-07-2021 End: 02-28-2023 Tobacco smoking status NDIS Unknown if ever smoked [facility] Start: 11-14-2018 Cigarettes [facility] Start: 1950 Sex Assigned At Male [facility] Start: 01-30-1979 End: 08-02-2024 Tobacco smoking status NHIS Smokes tobacco daily [place] Work Phone: Start: 12-28-2021 End: 07-31-2024 Cigarettes smoked current (pack per day) - Reported 1 [place] Start: 12-28-2021 End: 08-02-2024 Tobacco use and exposure Smokeless tobacco non-user [place] Work Phone: Start: 05-16-2024 End: 05-17-2024 Sex Male (finding) [facility] Start: 02-03-2022 End: 07-31-2024 Tobacco use panel [place] Start: 01-09-2012 PHQ2 Score 0 [place] Start: 09-12-2024 Gender identity Identifies as male gender (finding) [place] Start: 09-12-2024 Sexual orientation Heterosexual (khang celaya) [place] How often to you hav e a drink containing alcohol? Never [place] Medical Equipment Procedure Code Equipment Code Equipment Origin al Text Equipment Identifier Dates Repair, hernia, inguinal, with mesh insertion ([id number]) Extra-gynaecological surgical mesh, synthetic polymer, non-bioabsorbable ()[id number] FDA Start: 11-09-2023 Repair, hernia, inguinal, with mesh insertion ([id number]) Extra-gynaecological surgical mesh, synthetic polymer, non-bioabsorbable ()[id number] FDA Start: 01-18-2024 [place] Thk1.65mm P tfe 4x.5in Cardiovascular Sterile - [id number] Start: 02-12-2019 Valve Aort 23mm Crp-Ed Thfx - [id number] Start: 02-12-[address] us Vascutek 18/9mm 2 Branch Gelatin 45cm Vascular Main Leg - [id number] Start: 12-28-2021 Goals Date Patient Goal Desired Activity /State Functional Status Date Assessment Result Facility 10-12-2024 Total score [AUDIT-C] 0 10/13/19 25 10:19 AM EDT Paramjit Lugo MA [place] 06-28-2024 Functional status Ambulates [facility] Work Phone: 03-04-2022 Functional status Ambulates [facility] Work Phone: 01-03-2022 Are you deaf, or do you have serious difficulty hearing No 01/03/2022 12:55 PM Abida Bright, RN No [place] 01-03-2022 Are you blind, or do you have serious difficulty seeing, even when wearing glasses No 01/03/2022 12:55 PM Abida Bright, RN No [place] 02-20-2019 Do you have serious difficulty walking or climbing stairs No 02/20/2019 1:06 PM Terrie Keys (Rn), RN No [place] 02-20-2019 Do you have difficul ty dressing or bathing No 02/20/2019 1:06 PM Terrie Keys (Rn), RN No [place] 02-20-2019 Because of a physica l, mental, or emotional condition, do you have difficulty doing errands alone such as visiting a physician's office or shopping No 02/20/2019 1:06 PM Terrie Keys (Rn), RN No [facility] Mental Status Date Assessment Result Facility 09-21-2024 Cognitive function [facility]/Name [facility] Work Phone: 06-28-2024 Cognitive function Level Of Cons ciousness Awake;Alert;Appropriate;Fol lows Commands [facility] Work Phone: 06-27-2024 Cognitive function Voice/Name [facility] Work Phone: 06-27-2024 Cognitive function Voice/Name [facility] Work Phone: 01-18-2024 Cognitive function Voice/Name [facility] Work Phone: 03-03-2022 Cognitive function [facility]/Name [facility] Work Phone: 02-20-2019 Because of a physica l, mental, or emotional condition, do you have serious difficulty concentrating, remembering, or making decisions No 02/20/2019 1:06 PM Terrie Keys (Rn), RN No [place] Clinical Notes 02-12-2019 to 10-22-2024 Unruly Diaz RN - 10/22/2024 10:05 AM Nighat Ng RN - 10/16/2024 10:15 AM Luigi Hernandez MD - 10/16/2024 9:56 AM Bob Ferrell - 10/12/2024 11:30 AM EDTPatient Instructions Note Date & Type Note Facility 10-22-2024 Note HNO ID: [id number] Author: UNRULY DIAZ, RN Service: ? Author Type: Registered Nurse [...] Time spent on patient education: 05 minutes. [facility] 10-22-2024 History of Presen t illness [...] education: 05 minutes. documented in this encounter [place] 10-22-2024 Note HNO ID: [id number] Author: LUIGI BANKS MD Service: Radiation Oncology Author Type: Physician Type: Progress Notes Filed: 10/30/2024 10:25 Note Text: ABELAROD IVORY [id number] 10/22/2024 [facility] Department of Radiation Oncology [facility] RADIATION ONCOLOGY: COMPLETION NOTE DATE OF SIMULATION: 09/07/2024 DATES OF TREATMENT: 09/24/2024 to 10/22/2024 UNIT: W_[facility] TREATED: Bladder/prostate DISEASE: Clinical stage II, [...] AM Electronically Signed cc: Padmini Carrasco (Kyleigh) [address] [place] [id number] Lakeisha Rivers [address] [place] [address] [facility] 10-22-2024 Note Education (GABRIELTWS) ABELARDO IVORY ([id number]) 1950 M Date Time Provider Department 10/22/24 [...] 5 mg by mouth once daily. - jtcxukfbfwz-yqkqchtqu-mnwfnrtt (TRELEGY ELLIPTA) 200-62.5-25 mcg inhalation powder Inhale [...] Encounter Status:Closed by UNRULY DIAZ on 10/22/24 [facility] 10-16-2024 History of Presen t illness Narrative Radiation Therapy - Nursing Note (OTV) PATIENT NAME: Abelardo Ivory PATIENT October 16, 2024 [facility] FACILITY/LOCATION: [place] NURSING NOTE TYPE: PROSTATE - MALE PELVIS Subjective Data No concerns voiced Additional Data Do you want to see a Energy Efficiency Finance Manager? No Status: Patient is male Stress Scale: On a scale of 0 to 10, what number best describes how much distress you have experienced in the past week?(0 being no distress and 10 being extreme distress) 1 Social work notified: Pt denied need to see drug abuse social worker at this time. Nursing Assessment Fatigue: increased [...] Bladder function: no problems. Urinary frequency (D/N): d60doof/2-3. SIGNED by: Nighat Hines RN Radiation Oncology [...] Luigi Banks MD documented in this encounter [place] 10-16-2024 Note HNO ID: [id number] Author: NIGHAT HINES RN Service: ? Author Type: Registered Nurse Type: Progress Notes Filed: 10/16/2024 10:15 Note Text: Radiation Therapy - Nursing Note (OTV) PATIENT NAME: Abelardo Ivory PATIENT October 16, 2024 [facility] FACILITY/LOCATION: [facility] NOTE TYPE: PROSTATE - MALE PELVIS Subjective Data No concerns voiced Additional Data Do you want to see a Energy Efficiency Finance Manager? No Status: Patient is male Stress Scale: On a scale of 0 to 10, what number best describes how much distress you have experienced in the past week?(0 being no distress and 10 being extreme distress) 1 Social work notified: Pt denied need to see drug abuse social worker at this time. Nursing Assessment Fatigue: increased [...] Bladder function: no problems. Urinary frequency (D/N): s66ziit/2-3. SIGNED by: Nighat Hines RN [facility] 10-16-2024 Note HNO ID: [id number] Author: LUIGI BANKS MD Service: ? Author [...] radiation treatment as planned. Luigi Banks MD [facility] 10-12-2024 History of Presen t illness Narrative Abelardo Ivory 1950 10/12/2024 Patient self-referred for muscle invasive bladder cancer. HPI: The patient is a 74-year-old male with a past medical history as outlined below. Developed gross hematuria and noticed debris in urine. Saw Dr. Mcclendon. Had TURBT with chemo flush. Path below. Referred to [facility] b/c patient declined cystectomy. Per Dr. [...] ppd since age 15 years Pathology from [facility] reviewed at main campus: A. Urinary bladder, [...] cough. Clear sputum. Sees Dr. Zuñiga at [facility]. Smokes about 1/2 ppd. No alcohol. Interval [...] Take 5 mg by mouth once daily. itpfvoatquq-bgfyglaas-awpljufr (TRELEGY ELLIPTA) 200-62.5-25 mcg inhalation powder Inhale [...] use: No Drug use: No Worked for [employer]. [employer]. FAMILY HISTORY Problem Relation Age of [...] with any questions or concerns. Bob Otero APRN.ASSISTANT DIRECTOR OF RESIDENCE LIFE I spent a total of 30 minutes on the date of the service which included preparing to see the patient, eqpv-vp-bsjr patient care, completing clinical documentation, obtaining and/or [...] of this patient. documented in this encounter [place] 10-12-2024 Note HNO ID: [id number] Author: BOB OTERO, ? Service: ? Author [...] with chemo flush. Path below. Referred to [facility] b/c patient declined cystectomy. Per Dr. [...] ppd since age 15 years Pathology from [facility] reviewed at [facility]: A. Urinary bladder, transurethral resection: - [...] cough. Clear sputum. Sees Dr. Zuñiga at [facility]. Smokes about 1/2 ppd. No alcohol. Interval [...] Take 5 mg by mouth once daily. 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 [facility] 10-09-2024 Note HNO ID: [id number] Author: LUIGI BANKS MD Service: ? Author [...] radiation treatment as planned. Luigi Banks MD [facility] 10-09-2024 History of Presen t illness [...] NAME: Abelardo Ivory PATIENT October 09, 2024 [facility] FACILITY/LOCATION: [place] NURSING NOTE TYPE: PROSTATE - MALE PELVIS Subjective Data Pt states his pain is much in better, not taking pain meds much at this time Additional Data Do you want to see a Energy Efficiency Finance Manager? No Status: Patient is male Stress Scale: On a scale of 0 to 10, what number best describes how much distress you have experienced in the past week?(0 being no distress and 10 being extreme distress) 1 Social work notified: Pt denied need to see drug abuse social worker at this time. Nursing Assessment Fatigue: increased [...] Shreya Grace RN documented in this encounter [place] 10-09-2024 Note HNO ID: [id number] Author: SHREYA GRACE RN Service: ? Author Type: Registered Nurse Type: Progress Notes Filed: 10/09/2024 10:02 Note Text: Radiation Therapy - Nursing Note (OTV) PATIENT NAME: Abelardo Ivory PATIENT October 09, 2024 [facility] FACILITY/LOCATION: [facility] NOTE TYPE: PROSTATE - MALE PELVIS Subjective Data Pt states his pain is much in better, not taking pain meds much at this time Additional Data Do you want to see a Energy Efficiency Finance Manager? No Status: Patient is male Stress Scale: On a scale of 0 to 10, what number best describes how much distress you have experienced in the past week?(0 being no distress and 10 being extreme distress) 1 Social work notified: Pt denied need to see drug abuse social worker at this time. Nursing Assessment Fatigue: increased [...] much improved SIGNED by: Shreya Grace RN [facility] 10-02-2024 Note HNO ID: [id number] Author: LUIGI BANKS MD Service: ? Author [...] radiation treatment as planned. Luigi Banks MD [facility] 10-02-2024 Note HNO ID: [id number] Author: UNRULY DIAZ RN Service: ? Author Type: Registered Nurse Type: Progress Notes Filed: 10/02/2024 10:20 Note Text: Radiation Therapy - Nursing Note (OTV) PATIENT NAME: Abelardo Ivory PATIENT October 02, 2024 [facility] FACILITY/LOCATION: [facility] NOTE TYPE: PROSTATE - MALE PELVIS Subjective Data No complaints Additional Data Do you want to see a Energy Efficiency Finance Manager? No Status: Patient is male Stress Scale: [...] (D/N): same/same. SIGNED by: Unruly Diaz RN [facility] 10-02-2024 History of Presen t illness [...] NAME: Abelardo Ivory PATIENT October 02, 2024 [facility] FACILITY/LOCATION: [place] NURSING NOTE TYPE: PROSTATE - MALE PELVIS Subjective Data No complaints Additional Data Do you want to see a Energy Efficiency Finance Manager? No Status: Patient is male Stress Scale: [...] Unruly Diaz RN documented in this encounter [place] 09-25-2024 Telephone encounter Note Call to patient, [...] and denies further needs/concerns. Nazanin Palm RN [place] 09-25-2024 Miscellaneous Notes Call to patient, aware [...] Wolf Palm RN documented in this encounter [place] 09-25-2024 Telephone encounter Note Will make rad/onc nurse know as well. Has radiation tx tomorrow. Hermila Morse LPN [place] 09-25-2024 Telephone encounter Note He will have to sign a narcotic agreement form when he is here tomorrow. I will have one ready for him to sign. Lakeisha Rivers DO [place] 09-25-2024 Telephone encounter Note CYCLE 1/DAY 1 [...] up to 7 days. Wolf Palm RN [place] 09-25-2024 Note HNO ID: [id number] Author: LUIGI BANKS MD Service: ? Author [...] radiation treatment as planned. Luigi Banks MD [facility] 09-25-2024 History of Presen t illness [...] NAME: Abelardo Ivory PATIENT September 25, 2024 [facility] FACILITY/LOCATION: [facility] NOTE TYPE: PROSTATE - MALE PELVIS Subjective Data I am still having that pain when I urinated and sometimes just hits gideon Additional Data Do you want to see a Energy Efficiency Finance Manager? No Status: Patient is male Stress Scale: On a scale of 0 to 10, what number best describes how much distress you have experienced in the past week?(0 being no distress and 10 being extreme distress) 2 Social work notified: Pt denied need to see drug abuse social worker at this time. Nursing Assessment Fatigue: increased [...] Shreya Grace RN documented in this encounter [place] 09-25-2024 Note HNO ID: [id number] Author: SHREYA GRACE RN Service: ? Author Type: Registered Nurse Type: Progress Notes Filed: 09/25/2024 10:39 Note Text: Radiation Therapy - Nursing Note (OTV) PATIENT NAME: Abelardo Ivory PATIENT September 25, 2024 [facility] FACILITY/LOCATION: [place] NURSING NOTE TYPE: PROSTATE - MALE PELVIS Subjective Data I am still having that pain when I urinated and sometimes just hits gideon Additional Data Do you want to see a Energy Efficiency Finance Manager? No Status: Patient is male Stress Scale: On a scale of 0 to 10, what number best describes how much distress you have experienced in the past week?(0 being no distress and 10 being extreme distress) 2 Social work notified: Pt denied need to see drug abuse social worker at this time. Nursing Assessment Fatigue: increased [...] at night. SIGNED by: Shreya Grace RN [facility] 09-24-2024 Telephone encounter Note This has been scheduled. Leonardo Moses [place] 09-24-2024 Miscellaneous Notes This has been scheduled. Leonardo Storck Per Dr. Rivers, Schedule him for BMP with possible hydration this coming . Pt will be in for radiation at 0900. Please schedule for port/picc draw and possible hydration. Thank you. documented in this encounter [place] 09-24-2024 Telephone encounter Note Per Dr. Rivers, Schedule him for BMP with possible hydration this coming . Pt will be in for radiation at 0900. Please schedule for port/picc draw and possible hydration. Thank you. [place] 09-24-2024 Telephone encounter Note error [place] 09-24-2024 Miscellaneous Notes error documented in this encounter [place] 09-18-2024 History of Presen t illness Narrative [...] PATIENT PRESENTS WITH AN IMPLANTABLE OR ATTACHED SILK SPOOLER: No RADIOLOGY DEPARTMENT: CT; Exam(s) Completed: Abdomen/Pelvis PERIPHERAL IV DATA: Not applicable SIGNED BY: RT Lenin(R) September 18, 2024 1:46 PM documented in this encounter [place] 09-18-2024 Note HNO ID: [id number] Author: SAMINA NUNEZ RT(R) Service: ? Author Type: Signaling Project Engineer Type: Progress Notes Filed: 09/18/2024 13:47 Note [...] PATIENT PRESENTS WITH AN IMPLANTABLE OR ATTACHED SILK SPOOLER: No RADIOLOGY DEPARTMENT: CT; Exam(s) Completed: Abdomen/Pelvis PERIPHERAL IV DATA: Not applicable SIGNED BY: RT Lenin(Manoj) September 18, 2024 1:46 PM [facility] 09-12-2024 Note HNO ID: [id number] Author: MATTHEW GU RN Service: ? Author Type: Registered Nurse Type: Progress Notes Filed: 09/12/2024 16:33 Note Text: This visit was completed by phone. 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 YES Confirmed date and time for chemotherapy ? YES Other appointments (labs, imaging) discussed? YES Discussed where to park (hat sizer), charge for parking YES Discussed where to [...] REFERRAL (RECOMMENDATION): Social Work Matthew Gu RN [facility] 09-07-2024 History of Presen t illness [...] PATIENT PRESENTS WITH AN IMPLANTABLE OR ATTACHED SILK SPOOLER: No RADIOLOGY DEPARTMENT: Ultrasound PERIPHERAL IV DATA: Not applicable SIGNED BY: Sydni Sanchez RDMS RVT September 07, 2024 2:59 PM documented in this encounter [place] 09-07-2024 Note HNO ID: [id number] Author: SYDNI SANCHEZ RDMS Service: ? Author Type: Folder Taper Operator Type: Progress Notes Filed: 09/07/2024 14:59 Note [...] PATIENT PRESENTS WITH AN IMPLANTABLE OR ATTACHED SILK SPOOLER: No RADIOLOGY DEPARTMENT: Ultrasound PERIPHERAL IV DATA: Not applicable SIGNED BY: Sydni Sanchez RDMS RVT September 07, 2024 2:59 PM [facility] 09-07-2024 Note HNO ID: [id number] Author: UNRULY DIAZ RN Service: ? Author Type: Registered Nurse Type: Progress Notes Filed: 09/07/2024 10:59 Note Text: Radiation Therapy - Patient Education Note PATIENT NAME: Abelardo Ivory PATIENT September 07, 2024 [facility] FACILITY/LOCATION: [place] READINESS TO LEARN Cognitive Ability: Alert and [...] phone list, Bladder function, Diarrhea, Fatigue, and [place] instructions, XRT sheet and Aquaphor handout. Referral (recommendation): None, Pt denied need for social work, van service, and fuel buyer. Patient has an Onbody or Implanted device: No Signed by: Unruly Diaz RN [facility] 09-07-2024 History of Presen t illness Narrative Radiation Therapy - Patient Education Note PATIENT NAME: Abelardo Ivory PATIENT September 07, 2024 [facility] FACILITY/LOCATION: [place] READINESS TO LEARN Cognitive Ability: Alert and [...] need for social work, van service, and fuel buyer. Patient has an Onbody or Implanted device: No Signed by: Unruly Diaz RN documented in this encounter [place] 09-07-2024 History of Presen t illness Narrative ABELARDO IVORY [id number] 09/07/2024 [facility] Department of Radiation Oncology [facility] RADIATION ONCOLOGY SIMULATION NOTE DATE OF SIMULATION: [...] M.D./jase 51:56 PM documented in this encounter [place] 09-07-2024 History of Presen t illness Narrative ABELARDO IVORY [id number] 09/07/2024 [facility] - Department of Radiation Oncology Treatment [...] M.D. 52:21 PM documented in this encounter [place] 09-07-2024 Note HNO ID: [id number] Author: LUIGI BANKS MD Service: Radiation Oncology Author Type: Physician Type: Progress Notes Filed: 09/14/2024 13:56 Note Text: ABELARDO IVORY [id number] 09/07/2024 [facility] Department of Radiation Oncology [facility] RADIATION ONCOLOGY SIMULATION NOTE DATE OF SIMULATION: [...] Electronically Signed Luigi Banks M.D./ 51:56 PM [facility] 09-07-2024 Note HNO ID: [id number] Author: LUIGI BANKS MD Service: Radiation Oncology Author Type: Physician Type: Progress Notes Filed: 09/18/2024 14:21 Note Text: ABELARDO IVORY [id number] 09/07/2024 [facility] [facility] - Department of Radiation Oncology Treatment [...] Electronically Signed Luigi Banks M.D. 52:21 PM [facility] 09-06-2024 Telephone encounter Note See routing comment below. I will take care of the PICC line when appropriate to schedule. The IR order that's in is for a nephrostomy tube. Elizabeth Ludwig LPN [place] 09-06-2024 Miscellaneous Notes See routing comment below. I will take care of the PICC line when appropriate to schedule. The IR order that's in is for a nephrostomy tube. Elizabeth Ludwig LPN Received call from [facility] stating they are unable to insert picc with order placed. She states they need a Tunneled Picc ordered and [facility] IR would schedule that procedure. Absolutely- will add antegrade stent to procedure if IR is able Stacy Gauthier MD Scheduled US for 09/07 PICC LINE 09/10 @ [facility] Lab results from today show significant elevation of serum creatinine and BUN. Ultrasound stat. Also scheduled for potential nephrostomy tube placement at [facility] or [place]. AV[facility] 09/05 Labs today. done Referral to [...] about 8 weeks. documented in this encounter [place] 09-06-2024 Telephone encounter Note Received call from [facility] stating they are unable to insert picc with order placed. She states they need a Tunneled Picc ordered and [facility] would schedule that procedure. [place] Work Phone: 09-06-2024 Note HNO ID: [id number] Author: LUIGI BANKS MD Service: ? Author [...] Take 5 mg by mouth once daily. mtvjgwdsuww-wapycfxrb-djceehsi (TRELEGY ELLIPTA) 200-62.5-25 mcg inhalation powder Inhale [...] for prolonged bleedin (more content not included)... [facility] 09-06-2024 Note HNO ID: [id number] Author: UNRULY DIAZ RN Service: ? Author Type: Registered Nurse Type: Progress Notes Filed: 09/14/2024 11:12 Note Text: Radiation Therapy - Nursing Note (Consult) PATIENT NAME: Abelardo Ivory PATIENT September 06, 2024 [facility] FACILITY/LOCATION: [place] Chief Complaint: consult Reason for visit: Consult. Referring physician: Internal provider Dr Rivers Subjective Data: see pain assessment Additional Data Do you want to see a Energy Efficiency Finance Manager? No Are you interested in information about fertility? No Status: Patient is male Stress Scale: On a scale of 0 to 10, what number best describes how much distress you have experienced in the past week?(0 being no distress and 10 being extreme distress) 3 Social work notified: no SIGNED by: Unruly Diaz RN [facility] 09-06-2024 Telephone encounter Note Absolutely- will add antegrade stent to procedure if IR is able Stacy Gauthier MD [place] Work Phone: 09-06-2024 Telephone encounter Note Spoke with Dr. Rivers office and they stated for you to send message to dr. Rivers and have him add it on to his order and they will be sure it gets scheduled. Earnestine Bass [place] 09-06-2024 Miscellaneous Notes Spoke with Dr. Rivers [...] Stacy Gauthier MD documented in this encounter [place] 09-06-2024 Telephone encounter Note Scheduled US for 09/07 PICC LINE 8/4 @ 10 [place] Gutierres [place] 09-06-[address] Rivers ordered a left perc tube placement- can you find out where he's having it done, want to add on left antegrade stent placement at same time- thx Stacy Gauthier MD [place] Work Phone: 09-05-2024 Telephone encounter Note Lab results from today show significant elevation of serum creatinine and BUN. Ultrasound stat. Also scheduled for potential nephrostomy tube placement at [facility] [place] or [place]. [place] 09-05-2024 Telephone encounter Note Met with patient and introduced myself. Patient was given a [employer] binder with [facility] information, office contact information, thermometer, and additional chemotherapy resource booklets. Patient aware this nurse will review on scheduled appointment date. Matthew Gu RN [place] 09-05-2024 Miscellaneous Notes Met with patient and introduced myself. Patient was given a My Journey binder with chemocare information, office contact information, thermometer, and additional chemotherapy resource booklets. Patient aware this nurse will review on scheduled appointment date. Matthew Gu RN documented in this encounter [place] 09-05-2024 Telephone encounter Note AVS 09/05 Labs [...] OV with me in about 8 weeks. [place] 09-05-2024 Note HNO ID: [id number] Author: LAKEISHA RIVERS DO Service: ? Author Type: Physician Type: Progress Notes Filed: 09/05/2024 17:01 Note Text: Patient self-referred for muscle invasive bladder cancer. HPI: The patient is a 74-year-old male with a past medical history as outlined below. Developed gross hematuria and noticed debris in urine. Saw Dr. Mcclendon. Had TURBT with chemo flush. Path below. Referred to [facility] b/c patient declined cystectomy. Per Dr. [...] ppd since age 15 years Pathology from [facility] reviewed at main campus: A. Urinary bladder, [...] cough. Clear sputum. Sees Dr. Zuñiga at [facility]. Smokes about 1/2 ppd. No alcohol. [...] Take 5 mg by mouth once daily. myvjjgeqyqc-wqiagpntx-jvdmjoip (TRELEGY ELLIPTA) 200-62.5-25 mcg inhalation powder Inhale [...] sedation, infusion, injec (more content not included)... [facility] 09-05-2024 History of Presen t illness Narrative Patient self-referred for muscle invasive bladder cancer. HPI: The patient is a 74-year-old male with a past medical history as outlined below. Developed gross hematuria and noticed debris in urine. Saw Dr. Mcclendon. Had TURBT with chemo flush. Path below. Referred to [facility] b/c patient declined cystectomy. Per Dr. [...] ppd since age 15 years Pathology from [facility] reviewed at [facility]: A. Urinary bladder, transurethral resection: - [...] cough. Clear sputum. Sees Dr. Zuñiga at [facility]. Smokes about 1/2 ppd. No alcohol. [...] Take 5 mg by mouth once daily. ztlaqlxwumw-diiuyalwz-uutwiogk (TRELEGY ELLIPTA) 200-62.5-25 mcg inhalation powder Inhale [...] use: No Drug use: No Worked for [employer]. [employer]. FAMILY HISTORY Problem Relation Age of [...] which included preparing to see the patient, twgp-xx-xyjz patient care, completing clinical documentation, obtaining and/or reviewing separately obtained history, performing a medically appropriate examination, counseling and educating the patient/family/caregiver, ordering medications, tests, or procedures, communicating with other HCPs (not separately reported), and communicating results to the patient/family/caregiver. Lakeisha iRvers DO documented in this encounter [place] 08-29-2024 Telephone encounter Note Returned call to Abelardo Ivory regarding establishing care at [facility]. Contacted [facility] and spoke with Saira in hem/onc and she was able to schedule Darrel for: 09/05/2024 @ 2PM with Dr. Lakeisha Rivers. All questions addressed. Karen KIRBY, RN Specialty Software Firmware Engineer [place] 08-29-2024 Miscellaneous Notes Returned call to Abelardo Ivory regarding establishing care at [facility]. Contacted [facility] and spoke with Saira in hem/onc and she was able to schedule Darrel for: 09/05/2024 @ 2PM with Dr. Lakeisha Rivers. All questions addressed. Karen KIRBY, RN Specialty Software Firmware Engineer Abelardo Ivory is calling Codey Christianson MD today regarding Software Firmware Engineer - Other Patient wants to have his radiation locally at the [facility] in [place]. [place] told him they need information from Dr. Christianson to make sure they have the treatment he needs/getting. Can someone call the patient back Patient has been identified by name and birthdate. Requesting response back: [phone] (home) [phone] (cell) Tabitha Hayes August 29, 2024 documented in this encounter [place] 08-29-2024 Telephone encounter Note Abelardo Maria Ines Ivory is calling Codey Christianson MD today regarding Software Firmware Engineer - Other Patient wants to have his radiation locally at the [facility] in [place]. [place] told him they need information from Dr. Christianson to make sure they have the treatment he needs/getting. Can someone call the patient back Patient has been identified by name and birthdate. Requesting response back: [phone] (home) [phone] (cell) Tabitha Hayes August 29, 2024 [place] 08-29-2024 Note HNO ID: [id number] Author: STACY GAUTHIER MD Service: ? Author [...] (no units) Date Value 02/06/2019 Negative Specific [place], Ur (no units) Date Value 02/06/2019 1.017 [...] Take 5 mg by mouth once daily. xxsxrbfmmgj-lhjtcnzzq-pnaxgalv (TRELEGY ELLIPTA) 200-62.5-25 mcg inhalation powder Inhale [...] Delmi (more content not included)... [facility] 08-29-2024 History of Presen t illness [...] (no units) Date Value 02/06/2019 Negative Specific [place], Ur (no units) Date Value 02/06/2019 1.017 [...] Take 5 mg by mouth once daily. weatfpfpohi-qevyxyovw-tvcxdznu (TRELEGY ELLIPTA) 200-62.5-25 mcg inhalation powder Inhale [...] T2 [facility] 07/26/2024 Scr 1.5 06/07/2024 TURBT ([place]) 01/01/2022 Scr 2.6 Assessment and Plan: CRF- pt with chronic RI, latest eGFR 47 Bladder cancer- s/p TURBT in [place] (?? urologist), on repeat cysto I saw large amount of necrotic tissue starting at the bladder involving the majority of the trigone -pt with known T2 dx, told him that [facility] is neoadjuvant chemo followed by radical cystectomy and they understand - he has seen oncology, Dr Christianson @ [facility] and per his notes pt is [...] Pyridium sent in) documented in this encounter [place] 08-24-2024 Telephone encounter Note CASE [id number]: Spoke with patient, states he saw urology this week and stent was placed. Patient states he has decided not to do the study and would like to follow in [place] for chemo if possible. Aware Dr Christianson will be notified. [place] 08-24-2024 Miscellaneous Notes CASE 9822: Spoke with patient, states he saw urology this week and stent was placed. Patient states he has decided not to do the study and would like to follow in [place] for chemo if possible. Aware Dr Christianson will be notified. documented in this encounter [place] 08-22-2024 Telephone encounter Note CASE 9822: Left message on voicemail for pt to return call [place] 08-22-2024 Miscellaneous Notes CASE 9822: Left message on voicemail for pt to return call documented in this encounter [place] 08-21-2024 Telephone encounter Note Unable to find left orifice, pt asymptomatic and only mild hydro on CT so may be draining. To have XRT/immunoTx @ main - check CT flank and blood work mid Sep to assess hydro, if worse then will need PNT (discussed with dtr)- we can review results on phone as they live in [place] Stacy Gauthier MD [place] 08-21-2024 Miscellaneous Notes Unable to find left orifice, pt asymptomatic and only mild hydro on CT so may be draining. To have XRT/immunoTx @ [facility] - check CT flank and blood work mid Sep to assess hydro, if worse then will need PNT (discussed with dtr)- we can review results on phone as they live in [place] Stacy Gauthier MD documented in this encounter [place] 08-21-2024 Note HNO ID: [id number] Author: ABIGAIL ZHANG APRN.DOCK ASSOCIATE Service: Anesthesiology Author Type: Nurse Training Technician Type: Anesthesia Procedure Notes Filed: 08/21/2024 15:15 Note Text: ANESTHESIOLOGY PROCEDURE NOTE Airway General Information Procedure Start Time/Medication Administration: 08/21/2024 3:08 PM Procedure End Time: 08/21/2024 3:08 PM Patient location during procedure: OR Timeout Performed Pre-procedure: timeout performed Consent Obtained: Yes Patient identity confirmed: arm band Staffing Anesthesiologist: Kaleigh Benites MD DOCK ASSOCIATE: Abigail Zhang APRN.DOCK ASSOCIATE Performed by: DOCK ASSOCIATE Indications and Patient Condition Indications for airway management: anesthesia and airway protection Preoxygenated: yes anesthesia circuit Patient position: sniffing Method: asleep Final Airway Details Final airway type: supraglottic airway Number of attempts at approach: 1 Ventilation between attempts: BVM Final Supraglottic Airway: i-gel Size 5 Seal Adequate: yes SIGNATURE: Abigail Zhang APRN.DOCK ASSOCIATE PATIENT NAME: Abelardo Ivory DATE: August 21, 2024 TIME: 3:14 PM CSN: [id number] [facility] 08-16-2024 Instructions Marisela Pichardo APRN.ASSISTANT DIRECTOR OF RESIDENCE LIFE - 08/16/2024 10:39 AM EDT PATIENT PREOPERATIVE INSTRUCTIONS Your surgeon has scheduled you for your procedure at this surgery center: [facility] [phone] [phone] Please enter through the main entrance, and [...] 81 mg chewable tablet Follow surgeon's instructions. nxhjzwozyfh-gxfxsorby-hfgfeatj (TRELEGY ELLIPTA) 200-62.5-25 mcg inhalation powder Continue [...] surgery. - YOU MUST HAVE A RESPONSIBLE CHIEF COMMERCIAL OFFICER TAKE YOU HOME. A CREAM CHEESE MAKER, CAB OR UBER CHIEF COMMERCIAL OFFICER CANNOT BE MADE A RESPONSIBLE CHIEF COMMERCIAL OFFICER. - We recommend that a responsible person [...] the surgery center above. Visitors to any [place] facility: - An individual who is sick should not visit. - Visitors to patients with COVID-19 must follow these guidelines, which include wearing a mask, eye protection, gown and gloves. [facility]- Visitations are: - Visitation hours are [...] Advance Directive, please fax a copy to [phone] or Marce GARCIA at [phone] or email to for it to be [...] scanned into your chart that day. 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 Limited study. Essential hypertension Assessment: taking taking [...] Take 5 mg by mouth once daily. vufjdohnirv-zrjitsfqk-itcaujjk (TRELEGY ELLIPTA) 200-62.5-25 mcg inhalation powder Sig: Inhale 1 puff as instructed once daily. REASON FOR VISIT: Abelardo vIory is a 74 year old male who [...] a bladder resection in June 2023 at [facility]. Today, he denies pain, rating 0 [...] 5 mg by mouth once daily. Yes tpjwpapfrzw-nfxccvtsb-kenvhlht (TRELEGY ELLIPTA) 200-62.5-25 mcg inhalation powder Inhale [...] or any previous visit (from the past 67697 hours). Implantable Devices: None Assessment/Plan Malignant neoplasm [...] which included preparing to see the patient, ouvw-lv-ngsn patient care, completing clinical documentation, obtaining and/or reviewing separately obtained history, performing a medically appropriate examination, and counseling and educating the patient/family/caregiver. 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 yziqxqcnywr-fhjiqgvgr-ytfolysn (TRELEGY ELLIPTA) 200-62.5-25 mcg inhalation powder Sig: [...] a bladder resection in June 2023 at [facility]. Today, he denies pain, rating 0 [...] 5 mg by mouth once daily. Yes xnpqguhkejo-gvvgfyauj-bdzahzbd (TRELEGY ELLIPTA) 200-62.5-25 mcg inhalation powder Inhale [...] or any previous visit (from the past 00915 hours). Implantable Devices: None Assessment/Plan Malignant neoplasm [...] which included preparing to see the patient, wchf-oc-xfqy patient care, completing clinical documentation, obtaining and/or reviewing separately obtained history, performing a medically appropriate examination, and counseling and educating the patient/family/caregiver. SIGNATURE: Marisela Pichardo APRN.CNP PATIENT NAME: Abelardo Ivory DATE: August 16, 2024 TIME: 7:23 AM PAGER/CONTACT #: documented in this encounter [place] 08-07-2024 Note HNO ID: [id number] Author: KAREN VERDUGO LPN Service: ? Author Type: LICENSED NURSE Type: Progress Notes Filed: 08/07/2024 14:06 Note Text: Additional intake questions: Has the patient had fever, nausea, vomiting, diarrhea, constipation, fatigue for > 1 week? No Does the patient have a decreased appetite? No Does patient want to see a Energy Efficiency Finance Manager? No (yes to any of above refer patient to schedulers for dietitian appointment) ) Does patient have any new or increased numbness or tingling of extremities? No Is patient interested in fertility information? No Does patient need any prescription refills? No Does patient have an advanced directive in place? Yes, copies are in [email or web address] Electronically Signed By: Karen Verdugo LPN [facility] 08-07-2024 History of Presen t illness Narrative Additional intake questions: Has the patient had fever, nausea, vomiting, diarrhea, constipation, fatigue for > 1 week? No Does the patient have a decreased appetite? No Does patient want to see a Energy Efficiency Finance Manager? No (yes to any of above refer patient to schedulers for dietitian appointment) ) Does patient have any new or increased numbness or tingling of extremities? No Is patient interested in fertility information? No Does patient need any prescription refills? No Does patient have an advanced directive in place? Yes, copies are in [email or web address] [facility] INITIAL CONSULT NOTE Date of Service: [...] which included preparing to see the patient, xfds-dv-mwis patient care, completing clinical documentation, obtaining and/or reviewing separately obtained history, performing a medically appropriate examination, counseling and educating the patient/family/caregiver, ordering medications, tests, or procedures, communicating with other HCPs (not separately reported), independently interpreting results (not separately reported), communicating results to the patient/family/caregiver, and care coordination (not separately reported). Codey Christianson MD Staff Physician Department of Hematology [place] [address] Additional intake questions: Has the patient had fever, nausea, vomiting, diarrhea, constipation, fatigue for > 1 week? No Does the patient have a decreased appetite? No Does patient want to see a Energy Efficiency Finance Manager? No (yes to any of above refer [...] No Does patient want to see a Energy Efficiency Finance Manager? No (yes to any of above refer patient to schedulers for dietitian appointment) ) Does patient have any new or increased numbness or tingling of extremities? No Is patient interested in fertility information? No Does patient need any prescription refills? No Does patient have an advanced directive in place? Yes, copies are in [email or web address] documented in this encounter [place] 08-03-2024 Telephone encounter Note CASE 9822: Spoke [...] holiday. Patient will need repeat TURBT at [facility] due to previously being done at [facility]. [place] 08-03-2024 Miscellaneous Notes CASE 9822: Spoke with [...] holiday. Patient will need repeat TURBT at [facility] due to previously being done at [facility]. documented in this encounter [place] 08-02-2024 History of Presen t illness Narrative [...] (no units) Date Value 02/06/2019 Negative Specific [place], Ur (no units) Date Value 02/06/2019 1.017 [...] eGFR 47 Bladder cancer- s/p TURBT in [place] (?? urologist) pt with T2 dx, told him he needs neoadjuvant chemo (has already seen oncology, Dr Christianson @ [facility]) followed by radical cystectomy; they are not sure of the treatment plan but will need to see Urology @ [facility] if desires cystectomy Left hydro- pt [...] proceed Schedule cysto, TURBT, left stent @ [facility] documented in this encounter [place] 08-02-2024 Note HNO ID: [id number] Author: STACY GAUTHIER MD Service: ? Author [...] (no units) Date Value 02/06/2019 Negative Specific [place], Ur (no units) Date Value 02/06/2019 1.017 [...] mild (more content not included)... [facility] 07-31-2024 History of Presen t illness [...] PATIENT PRESENTS WITH AN IMPLANTABLE OR ATTACHED SILK SPOOLER: No ALLERGIES: Reviewed and unchanged CONTRAST ALLERGY: [...] TIME: 2:25 PM documented in this encounter [place] 07-31-2024 Note HNO ID: [id number] Author: SAMINA NUNEZ RT(R) Service: ? Author Type: Signaling Project Engineer Type: Progress Notes Filed: 07/31/2024 14:26 Note [...] PATIENT PRESENTS WITH AN IMPLANTABLE OR ATTACHED SILK SPOOLER: No ALLERGIES: Reviewed and unchanged CONTRAST ALLERGY: [...] DATE: July 31, 2024 TIME: 2:25 PM [facility] 07-26-2024 Note HNO ID: [id number] Author: FARHEEN VALENTINE RN Service: ? Author [...] Time of Presentation: 1020 Farheen Sommers RN [facility] 07-26-2024 History of Presen t illness [...] Farheen Sommers RN documented in this encounter [place] 07-26-2024 Note HNO ID: [id number] Author: CODEY CHRISTIANSON MD Service: ? Author Type: Physician Type: Progress Notes Filed: 08/07/2024 14:06 Note Text: [facility] INITIAL CONSULT NOTE Date of Service: [...] which included preparing to see the patient, frti-ab-hwkd patient care, completing clinical documentation, obtaining and/or reviewing separately obtained history, performing a medically appropriate examination, counseling and educating the patient/family/caregiver, ordering medications, tests, or procedures, communicating with other HCPs (not separately reported), independently interpreting results (not separately reported), communicating results to the patient/family/caregiver, and care coordination (not separately reported). Codey Christianson MD Staff Physician Department of Hematology and Medical Oncology [facility] (more content not included)... [facility] 07-26-2024 Note HNO ID: [id number] Author: KAREN VERDUGO LPN Service: ? Author Type: LICENSED NURSE Type: Progress Notes Filed: 08/07/2024 14:06 Note Text: Additional intake questions: Has the patient had fever, nausea, vomiting, diarrhea, constipation, fatigue for > 1 week? No Does the patient have a decreased appetite? No Does patient want to see a Energy Efficiency Finance Manager? No (yes to any of above refer patient to schedulers for dietitian appointment) ) Does patient have any new or increased numbness or tingling of extremities? No Is patient interested in fertility information? No Does patient need any prescription refills? No Does patient have an advanced directive in place? Yes, copies are in Epic Electronically Signed By: Karen Verdugo LPN [facility] 07-26-2024 Note HNO ID: [id number] Author: KAREN VERDUGO LPN Service: ? Author Type: LICENSED NURSE Type: Progress Notes Filed: 08/07/2024 14:06 Note Text: Additional intake questions: Has the patient had fever, nausea, vomiting, diarrhea, constipation, fatigue for > 1 week? No Does the patient have a decreased appetite? No Does patient want to see a Energy Efficiency Finance Manager? No (yes to any of above refer patient to schedulers for dietitian appointment) ) Does patient have any new or increased numbness or tingling of extremities? No Is patient interested in fertility information? No Does patient need any prescription refills? No Does patient have an advanced directive in place? Yes, copies are in Epic Electronically Signed By: Karen Verdugo LPN [facility] 06-28-2024 Note [facility] Medical Records Department [address] [place] [id number] Discharge Summary 06/28/24 0648 MR#: [id number] Acct: [id number] Name: ABELARDO IVORY Rep #: [id number] : 1950 74 From: Jose J Mcclendon MD PCP: Dr. Padmini Carrasco MD Status:ADM NILO [place] [facility] [place] [id number] Providers Date of Admission: 06/27/24 Date of [...] 80.8 H, Lymph % (Auto) 11.9 L, [place] % (Auto) 7.0, Eos % (Auto) 0.0, [...] With: Jose J Mcclendon MD When: Call [phone] for an appointment Meaningful Use Info Meaningful [...] Staff] - Disp (more content not included)... [facility] 06-27-2024 Note [facility] Medical Records Department [address] [place] [address] History Physical Exam 06/27/24 0711 MR#: [id number] Acct: [id number] Name: ABELARDO IVORY Rep #: [id number] : 1950 74 From: Jose J Mcclendon MD PCP: Dr. Padmini Carrasco MD Status:[facility] Location: [place] [address] HPI - General General Date of Service: 06/27/24 Chief Complaint: Bladder tumor HPI Narrative ABELARDO IVORY, is a 74 M who presents for transurethral resection of a bladder tumor and instillation of Mitomycin-C [facility] Medical History Wears dentures Wears glasses Bruising Easy bruising High cholesterol Smoker Shortness of breath on exertion History of echocardiogram Cardiology follow-up encounter Stage 3b chronic kidney disease (CKD) Thrombocytopenia Chronic kidney insufficiency Pleural effusion Secondary pulmonary arterial hypertension Atherosclerotic heart disease of [place] coronary artery without angina pectoris Intention tremor [...] MD; Dr. Jose J Mcclendon MD Signed [facility] 06-22-2024 Radiology Diagnostic study note [facility] Imaging Services [address] [place] [address] Abdomen/Pelvis WITH Contrast MR#: [id number] Acct: [id number] Name: ABELARDO IVORY Rep #: [id number] : 1950 M 74 From: Moses Briseno MD PCP: Dr. Padmini Carrasco MD Status: REG CLI Study:Abdomen/Pelvis WITH Contrast Date of Ex am: 06/21/24 Exam# [id number] Ordering Dr: Bhargavi Mcclendon MD PROCEDURE: ABDOMEN/PELVIS [...] Calcified hepatic and splenic granulomas. Reading Location: [facility] CC: Dr. Padmini Carrasco MD; Dr. Jose J Mcclendon MD ~ Associate Sales: Signed [facility] 06-19-2024 Evaluation note Diagnosis Onset Date Resolution Pre-operative cardiovascular examination acute June 19, 2024 8:36am Abdominal aortic aneurysm (AAA) chronic June 19, 2024 8:36am Atherosclerotic heart disease of [place] coronary artery without angina pectoris June 19, 2024 8:36am Essential hypertension June 19, 2024 8:36am History of aortic valve replacement February 12, 2019June 19, 2024 8:36am Hyperlipidemia June 19, 2024 8:36am Smoking greater than 40 pack years June 19, 2024 8:36am Pre-operative cardiovascular examination acute August 30, 2024 7:53am Abdominal aortic aneurysm (AAA) chronic August 30, 2024 7:53am Atherosclerotic heart disease of [place] coronary artery without angina pectoris August 30, 2024 7:53am Essential hypertension August 30, 2024 7:53am History of aortic valve replacement February 12, 2019August 30, 2024 7:53am Hyperlipidemia August 30, 2024 7:53am Smoking greater than 40 pack years August 30, 2024 7:53am [employer] Work Phone: [phone]) 853-726505-13-2025 Evaluation note* Diagnosis Onset Date Resolution Status Admit Date Pre-operative cardiovascular examination acute June 19, 2024 8:36am Abdominal aortic aneurysm (AAA) chronic June 19, 2024 8:36am Atherosclerotic heart diseas e of [place] coronary artery without angina pectoris june 8:36am Essential hypertension chronic 2024 8:36am History of aortic valve replacement February 12, 2019June 19, 2024 8:36am Hyperlipidemia June 19, 2024 8:36am Smoking greater than 40 pack years June 19, 2024 8:36am Abdominal aortic aneurysm (AAA) chronic August 30, 2024 7:53am Atherosclerotic heart diseas e of [place] coronary artery without angina pectoris august 7:53am Essential hypertension chronic 2024 7:53am History of aortic valve replacement February 12, 2019August 30th, 202 5 7:53am Hyperlipidemia chronic August 30, 2024 7:53am Smoking greater than 40 pack years chronic August 30, 2024 7:53am [facility] Work Phone: 1(889) 919-244004-09-2025 Radiology Diagnostic study note [facility] Imaging Services [address] [place] [address] Abdomen/Pelvis without Cont MR#: [id number] Acct: [id number] Name: ABELARDO IVORY Rep #: [id number] : 1950 M 74 From: Diana Huynh MD PCP: Dr. Padmini Carrasco MD Status: REG ER Study:Abdomen/Pelvis without Cont Date of Exa m: 05/16/24 Exam# [id number] Ordering Dr: Kelly Turpin DO PROCEDURE: ABDOMEN/PELVIS [...] Padmini Carrasco MD; Jeffery Turpin DO ~ Associate Sales: Signed [facility]02-14-2025 Evaluation note* Diagnosis Onset Date Resolution Status Admit Date COPD (chronic obstructive pulmonary disease) chronic March 12:36pm Smoking greater than 40 pack years chronic March 23 025 12:36pm [facility] Work Phone: 1(666) 392-925902-14-2025 Evaluation note* Diagnosis Onset Date Resolution Status Admit Date COPD (chronic obstructive pulmonary disease) chronic March 12:36pm Smoking greater than 40 pack years chronic March 23 025 12:36pm Pre-operative cardiovascular examination acute June 19, 2024 8:36am Abdominal aortic aneurysm (AAA) chronic June 19, 2024 8:36am Atherosclerotic heart disease of [place] coronary artery without angina pectoris chronic June 19, 2024 8:36am Essential hypertension chronic 2024 8:36am History of aortic valve replacement February 12, 2019 chronic June 19, 2024 8:36am Hyperlipidemia chronic June 19, 2024 8:36am Smoking greater than 40 pack years chronic June 19, 2024 8:36am [facility] Work Phone: 1(882) 804-470312-26-2024 Evaluation note* Diagnosis Onset Date Resolution Status Admit Date S/P inguinal hernia repair acute February 02, 2024 8:27am COPD (chronic obstructive pulmonary disease) chronic March 12:36pm Smoking greater than 40 pack years chronic March 23 025 12:36pm [facility] Work Phone: 1(867) 616-206312-11-2024 [facility] Medical Records Department [address] [place] [address] History Physical Exam 01/18/24 1005 MR#: [id number] Acct: [id number] Name: ABELARDO IVORY Rep #: [id number] : 1950 73 From: Marquise Barillas MD PCP: Dr. Padmini Carrasco MD Status:[facility] Location: [place] [address] History and Physical Date of Admission: 01/18/24 [...] Diagnoses S/P inguinal hernia repair Z98.890; Z87.19 [facility] Medical History Wears dentures Wears glasses Bruising Easy bruising High cholesterol Smoker Shortness of breath on exertion History of echocardiogram Cardiology follow-up encounter Stage 3b chronic kidney disease (CKD) Thrombocytopenia Chronic kidney insufficiency Pleural effusion Secondary pulmonary arterial hypertension Atherosclerotic heart disease of [place] coronary artery without angina pectoris Intention tremor [...] to 8 weeks. Marquise Barillas MD Pager: [facility] [address] [place] [address], [place] [address] Office: I have examined the patient and the H P has been reviewed. There are no clinical changes since date of exam. The patient presents for his left sided inguinal hernia repair. The right side was repaired 2 months ago. I have reexplained the risks of the procedure and he understands and is wanted proceed. Marquise Barillas MD Pager: [facility] [address] [place] [address] Outpatient [place], [address] [place] [address] Office: 01/18/24 1005 Cosigner Signature (if applicable): CC: Dr. Marquise Barillas MD; Dr. Padmini Carrasco MD [facility] Medical Records Department [address] [place] [address] History Physical Exam 11/09/23 0950 MR#: [id number] Acct: [id number] Name: ABELARDO IVORY Rep #: [id number] : 1950 73 From: Marquise Barillas MD PCP: Dr. Padmini Carrasco MD Status:REG [facility] Location: [place] [address] History and Physical Date of Admission: 11/09/23 [...] you fallen in the past year?: No [facility] Medical History Stage 3b chronic kidney disease (CKD) Thrombocytopenia Chronic kidney insufficiency Pleural effusion Secondary pulmonary arterial hypertension Atherosclerotic heart disease of [place] coronary artery without angina pectoris Intention tremor [...] No headache(s), No lack (more content not included)...[facility]04-21-2023 Progress note Author Tonia Jenkins [facility] May 28, 2022 11:31am Note Date/Time May 28, 2022 11: 18am [facility] [address] [place] [address] Progress Note - Wound Care 05/28/22 1116 MR#: [id number] Acct: [id number] Name: ABELARDO IVORY Rep #:[id number] 06 : 1950 72 From: Tonia ACUNA PCP: Dr. Ezekiel Carrasco MD Status: REG R Location: History of Present Illness Date of Service: 05/28/22 Chief Complaint: Left wrist wound Multiple bilateral lower extremity wounds History of Wound: Patient is new to [facility] but known to me from the vascular surgery clinic. His medical history is significant for CABG, AAA rupture and repair, aortic stenosis s/p valve replacement, diabetes (not well controlled at this time per PCP note) December 2021 patient had rupture of juxtarenal AAA which was emergently repaired at [facility]. Patient was understandably quite ill following [...] Method Room Air Charges/Coding Procedures Integumentary 111xxx-113xx: 86086 Sylvia subq tissue 20 sq cm/< Physical [...] Recorded Date Recorded By Document 05/14/22 08:07 [id number] 05/14/22 08:18 Document 05/21/22 08:08 [facility] [id number] 05/21/22 08:20 BM Document 05/28/22 08:47 [facility] [id number] 05/28/22 08:52 BMF 05/14/22 05/21/22 05/28/22 08:07 08:08 08:47 - Today's Visit Information Type of service Follow-up Visit Follow-up Visit Follow-up Visit (Physician/ASSISTANT DIRECTOR OF RESIDENCE LIFE (Physician/ASSISTANT DIRECTOR OF RESIDENCE LIFE (Physician/ASSISTANT DIRECTOR OF RESIDENCE LIFE ) ) ) Arrival Mode Ambulatory Ambulatory [...] Recorded Date Recorded By Document 05/14/22 08:07 [id number] 05/14/22 08:18 JF Document 05/21/22 08:08 BM [id number] 05/21/22 08:20 BMF Document 05/28/22 08:47 [facility] [id number] 05/28/22 08:52 BMF 05/14/22 05/21/22 05/28/22 08:07 [...] (34-66%) None Present (0 %) -Granulation Quality [place] -Slough/Fibrin Yes Yes Yes -Necrosis Amt Small [...] Date Recorded By Document 05/14/22 08:51 PL [id number] 05/14/22 09:00 PL Document 05/21/22 08:55 PL [id number] 05/21/22 08:57 PL Document 05/28/22 09:25 PL [id number] 05/28/22 09:27 PL 05/14/22 05/21/22 05/28/22 08:51 [...] Recorded Date Recorded By Document 05/14/22 08:58 [id number] 05/14/22 08:59 Document 05/21/22 08:56 Desktop 05/21/22 08:57 Document 05/28/22 09:06 [id number] 05/28/22 09:07 05/14/22 05/21/22 05/28/22 08:58 08:56 [...] Cosigner Signature (if applicable): CC: ~ Signed [facility] Work Phone: 1(205) 588-171804-14-2023 Progress note Author Tonia Jenkins [facility] May 21, 2022 2:01pm Note Date/Time May 21, 2022 1:4 5pm [facility] [address] [place] [address] Progress Note - Wound Care 05/21/22 1341 MR#: [id number] Acct: [id number] Name: ABELARDO IVORY Rep #:[id number] : 1950 72 From: Tonia ACUNA PCP: Dr. Ezekiel Carrasco MD Status: REG [facility] Location: History of Present Illness Date of Service: 05/21/22 Chief Complaint: Left wrist wound Multiple bilateral lower extremity wounds History of Wound: Patient is new to [facility] but known to me from the vascular surgery clinic. His medical history is significant for CABG, AAA rupture and repair, aortic stenosis s/p valve replacement, diabetes (not well controlled at this time per PCP note) December 2021 patient had rupture of juxtarenal AAA which was emergently repaired at [facility]. Patient was understandably quite ill following [...] Method Room Air Charges/Coding Procedures Integumentary 111xxx-113xx: 75815 Sylvia subq tissue 20 sq cm/< Physical [...] Recorded Date Recorded By Document 05/14/22 08:07 [id number] 05/14/22 08:18 JF Document 05/21/22 08:08 BM [id number] 05/21/22 08:20 BMF 05/14/22 05/21/22 08:07 08:08 WC - Today's Visit Information Type of service Follow-up Visit Follow-up Visit (Physician/ASSISTANT DIRECTOR OF RESIDENCE LIFE (Physician/ASSISTANT DIRECTOR OF RESIDENCE LIFE ) ) Arrival Mode Ambulatory Ambulatory Transfer [...] Recorded Date Recorded By Document 05/14/22 08:07 [id number] 05/14/22 08:18 Document 05/21/22 08:08 [facility] [id number] 05/21/22 08:20 [facility] 05/14/22 05/21/22 08:07 08:08 Wound Center Nurse [...] (34-66%) None Present (0 %) -Granulation Quality [place] -Slough/Fibrin Yes Yes -Necrosis Amt Small (1-33%) [...] Date Recorded By Document 05/14/22 08:51 PL [id number] 05/14/22 09:00 PL Document 05/21/22 08:55 PL [id number] 05/21/22 08:57 PL 05/14/22 05/21/22 08:51 08:55 [...] Recorded Date Recorded By Document 05/14/22 08:58 [id number] 05/14/22 08:59 Document 05/21/22 08:56 Desktop 05/21/22 [...] Cosigner Signature (if applicable): CC: ~ Signed [facility] Work Phone: 1(758) 894-254904-07-2023 Progress note Author Tonia Jenkins [facility] May 14, 2022 8:53am Note Date/Time May 14, 2022 8:53 am [facility] [address] [place] [address] Progress Note - Wound Care 05/14/22 0846 MR#: [id number] Acct: [id number] Name: ABELARDO IVORY Rep #:[id number] : 1950 72 From: Tonia ACUNA PCP: Dr. Ezekiel Carrasco MD Status: REG RCR Location: History of Present Illness Date of Service: 05/14/22 Chief Complaint: Left wrist wound Multiple bilateral lower extremity wounds History of Wound: Patient is new to [facility] but known to me from the vascular surgery clinic. His medical history is significant for CABG, AAA rupture and repair, aortic stenosis s/p valve replacement, diabetes (not well controlled at this time per PCP note) December 2021 patient had rupture of juxtarenal AAA which was emergently repaired at [facility]. Patient was understandably quite ill following [...] Multi Select Codes Integumentary Integumentary CPT Codes: 17580 Sylvia subq tissue 20 sq cm/< Physical [...] lat mal and R ant ankle/sanchez remain. [place], granulation tissue at the wound beds. Good [...] Date Recorded By Document 05/14/22 08:07 [facility] [id number] 05/14/22 08:18 [facility] 05/14/22 08:07 WC - Today's Visit Information Type of service Follow-up Visit (Physician/ASSISTANT DIRECTOR OF RESIDENCE LIFE ) Arrival Mode Ambulatory Patient Requires Transmission-Based [...] Date Recorded By Document 05/14/22 08:07 [facility] [id number] 05/14/22 08:18 KENT[facility]LL 05/14/22 08:07 Wound Center [...] Skin Appearance) No Abnormality, Assessed,Dry/ Scaly -Color (Kirtsie-wound Skin Appearance) No Abnormality, Assessed -Temperature (Kirstie-wound [...] Scar -Granulation Amt Medium (34-66%) -Granulation Quality [place] -Slough/Fibrin Yes -Necrosis Amt Small (1-33%) -Necrotic [...] Cosigner Signature (if applicable): CC: ~ Signed [facility] Work Phone: 1(533) 819-725504-05-2023 Procedure [facility] 05-07-2022 Progress note Author Tonia Jenkins [facility] May 07, 2022 12:01pm Note Date/Time May 07, 2022 12: 01pm [facility] [address] [place] [address] [place] [address] Progress Note - Wound Care 05/07/22 1156 MR#: [id number] Acct: [id number] Name: ABELARDO IVORY Rep #:[id number] 06 : 1950 72 From: Tonia ACUNA PCP: Dr. Ezekiel Carrasco MD Status: REG RCR Location: History of Present Illness Date of Service: 05/07/22 Chief Complaint: Left wrist wound Multiple bilateral lower extremity wounds History of Wound: Patient is new to [facility] but known to me from the vascular surgery clinic. His medical history is significant for CABG, AAA rupture and repair, aortic stenosis s/p valve replacement, diabetes (not well controlled at this time per PCP note) December 2021 patient had rupture of juxtarenal AAA which was emergently repaired at [facility]. Patient was understandably quite ill following [...] Air Charges/Coding Wound Center CF Procedures 96XXX-98XXX: 82819 RMVL DEVITAL TIS ADDL 20CM/< Multi Select Codes Wound Center CF Procedures 96XXX-98XXX: 53322 RMVL DEVITAL TIS ADDL 20CM/< Physical Exam [...] have healed. Only 4 remain on RLE. [place], granulation tissue at the wound beds. Good bleeding. No significant erythema, foul odor, drainage noted. Left wrist wound with pink granulation tissue at base, minimal slough. Significantly decreased in size from last week. 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: R junior staff accountant lower leg Laterality: Right Type of Debridement: [...] Date Recorded By Document 04/09/22 13:30 AK [id number] 04/09/22 13:42 AK Document 04/16/22 14:11 AK [id number] 04/16/22 14:21 KS Document 04/23/22 14:03 PR [id number] 04/23/22 14:17 PR Document 04/30/22 13:54 KS [id number] 04/30/22 14:09 KS Document 05/07/22 10:14 [facility] [id number] 05/07/22 10:26 [facility] 04/09/22 04/16/22 04/23/22 13:30 14:11 14:03 - Today's Visit Information Type of service Initial Visit Follow-up Visit Follow-up Visit (Physician/ASSISTANT DIRECTOR OF RESIDENCE LIFE (Physician/ASSISTANT DIRECTOR OF RESIDENCE LIFE ) ) Arrival Mode Ambulatory Ambulatory Ambulatory [...] Type of service Follow-up Visit Initial Visit (Physician/ASSISTANT DIRECTOR OF RESIDENCE LIFE ) Arrival Mode Ambulatory Ambulatory Transfer Assistance [...] Recorded Date Recorded By Document 04/09/22 13:30 KS [id number] 04/09/22 13:42 AK Document 04/16/22 14:11 KS [id number] 04/16/22 14:21 AK Document 04/23/22 14:03 PR [id number] 04/23/22 14:17 PR Document 04/30/22 13:54 KS [id number] 04/30/22 14:09 AK Document 05/07/22 10:14 [facility] [id number] 05/07/22 10:26 [facility] 03/04/2904/16/22 04/23/22 13:30 14:11 14:03 Wound Center [...] (34-66%) Medium (34-66%) %) -Granulation Quality N/A [place] Red -Slough/Fibrin Yes Yes Yes -Necrosis Amt [...] Present (0 %) %) -Granulation Quality N/A [place] -Slough/Fibrin Yes Yes Yes -Necrosis Amt Large [...] Present (0 %) %) -Granulation Quality N/A [place] -Slough/Fibrin Yes Yes Yes -Necrosis Amt Large [...] None Present (0 %) %) -Granulation Quality [place] -Slough/Fibrin Yes Yes Yes -Necrosis Amt Large [...] Assessed -Color (Kirstie-wound Skin Appearance) Assessed -Temperature (Kirsite-wound Skin No Abnormality Appearance) (Pt Warm) -Tenderness [...] Date Recorded By Document 04/09/22 15:12 PL [id number] 04/09/22 15:29 PL Document 04/16/22 15:08 PL [id number] 04/16/22 15:18 PL Document 04/23/22 15:17 PL [id number] 04/23/22 15:26 PL Document 04/30/22 15:00 PL [id number] 04/30/22 15:08 PL Document 05/07/22 10:45 PL [id number] 05/07/22 10:57 PL 04/09/22 04/16/22 04/23/22 15:12 [...] Recorded Date Recorded By Document 04/09/22 15:05 PR [id number] 04/09/22 15:16 PR Document 04/16/22 14:59 KS [id number] 04/16/22 15:01 KS Document 04/23/22 14:53 [facility] [id number] 04/23/22 14:57 [facility] Document 04/30/22 15:04 KS [id number] 04/30/22 15:07 KS Document 05/07/22 11:08 [facility] [id number] 05/07/22 11:09 [facility] 04/09/22 04/16/22 04/23/22 15:05 14:59 14:53 Wound [...] Secured with Tape -Other Covering DRSG PER PR RN -Promogran #7 Right 1st Toe -Ulcer Cleansing Rinsed/ Irrigated with Saline -Foul Odor after Cleansing No -Negative Pressure Wound Therapy -Primary Dressing Applied -Other Dressing SANTYL -Primary Dressing Covered/Secured with Dry Gauze & Roll Gauze, Secured with Tape -Other Covering DRSG PER PR RN -Promogran #6 R Dorsal -Ulcer Cleansing [...] Matter, Mepilex Border -Other Dressing DRSG PER PR RN -Primary Dressing Covered/Secured with Dry Gauze [...] Cosigner Signature (if applicable): CC: ~ Signed [facility] Work Phone: 1(851) 469-617003-27-2023 Procedure [facility] 04-30-2022 Progress note Author [facility] April 30, 2022 2:55pm Note Date/Time April 30, 2022 2:3 8pm [facility] [address] [place] [address] Progress Note - Wound Care 04/30/22 1435 MR#: [id number] Acct: [id number] Name: ABELARDO IVORY Rep #:[id number] : 1950 72 From: Tonia ACUNA PCP: Dr. Ezekiel Carrasco MD Status: [facility] Location: History of Present Illness Date of Service: 04/30/22 Chief Complaint: Left wrist wound Multiple bilateral lower extremity wounds History of Wound: Patient is new to [facility] but known to me from the vascular surgery clinic. His medical history is significant for CABG, AAA rupture and repair, aortic stenosis s/p valve replacement, diabetes (not well controlled at this time per PCP note) December 2021 patient had rupture of juxtarenal AAA which was emergently repaired at [facility]. Patient was understandably quite ill following [...] Air Charges/Coding Wound Center CF Procedures 96XXX-98XXX: 91734 RMVL DEVITAL TIS 20 CM/< Multi Select Codes Wound Center CF Procedures 96XXX-98XXX: 45200 RMVL DEVITAL TIS 20 CM/< Physical Exam [...] few more have healed since last week. [place], granulation tissue at the wound beds. Good bleeding. No significant erythema, foul odor, drainage noted. Left wrist wound with pink granulation tissue at base, minimal slough. Significantly decreased in size from last week. 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: R junior staff accountant lower leg Laterality: Right Type of Debridement: [...] Recorded Date Recorded By Document 04/09/22 13:30 KS [id number] 04/09/22 13:42 KS Document 04/16/22 14:11 KS [id number] 04/16/22 14:21 KS Document 04/23/22 14:03 PR [id number] 04/23/22 14:17 PR Document 04/30/22 13:54 KS [id number] 04/30/22 14:09 KS 04/09/22 04/16/22 04/23/22 13:30 14:11 14:03 - Today's Visit Information Type of service Initial Visit Follow-up Visit Follow-up Visit (Physician/ASSISTANT DIRECTOR OF RESIDENCE LIFE (Physician/ASSISTANT DIRECTOR OF RESIDENCE LIFE ) ) Arrival Mode Ambulatory Ambulatory Ambulatory [...] Visit Information Type of service Follow-up Visit (Physician/ASSISTANT DIRECTOR OF RESIDENCE LIFE ) Arrival Mode Ambulatory Transfer Assistance Patient [...] Date Recorded By Document 04/09/22 13:30 AK [id number] 04/09/22 13:42 AK Document 04/16/22 14:11 KS [id number] 04/16/22 14:21 AK Document 04/23/22 14:03 PR [id number] 04/23/22 14:17 PR Document 04/30/22 13:54 AK [id number] 04/30/22 14:09 AK 04/09/22 04/16/22 04/23/22 13:30 [...] (34-66%) Medium (34-66%) %) -Granulation Quality N/A [place] Red -Slough/Fibrin Yes Yes Yes -Necrosis Amt [...] Present (0 %) %) -Granulation Quality N/A [place] -Slough/Fibrin Yes Yes Yes -Necrosis Amt Large [...] None Present (0 %) %) -Granulation Quality [place] -Slough/Fibrin Yes Yes Yes -Necrosis Amt Large [...] Present (0 %) %) -Granulation Quality N/A [place] -Slough/Fibrin Yes Yes Yes -Necrosis Amt Large [...] (Kirstie-wound Skin Appearance) No Abnormality, Assessed -Moisture (Kirsite-wound Skin Appearance) No Abnormality, Assessed -Color (Kirstie-wound [...] Date Recorded By Document 04/09/22 15:12 PL [id number] 04/09/22 15:29 PL Document 04/16/22 15:08 PL [id number] 04/16/22 15:18 PL Document 04/23/22 15:17 PL [id number] 04/23/22 15:26 PL 04/09/22 04/16/22 04/23/22 15:12 [...] Recorded Date Recorded By Document 04/09/22 15:05 PR [id number] 04/09/22 15:16 PR Document 04/16/22 14:59 KS [id number] 04/16/22 15:01 AK Document 04/23/22 14:53 [facility] [id number] 04/23/22 14:57 BM 04/09/22 04/16/22 04/23/22 15:05 [...] Matter, Mepilex Border -Other Dressing DRSG PER PR RN -Primary Dressing Covered/Secured with Dry Gauze [...] Tape Tape Tape -Other Covering DRSG PER PR RN Right -Lotion applied to leg before [...] 1 week or sooner as needed. 04/30/22 3352 <Electronically signed by Tonia ACUNA> Cosigner Signature (if applicable): CC: ~ Signed [facility] Work Phone: 1(992) 984-538503-17-2023 Progress note Author Tonia Jenkins [facility] April 23, 2022 5:51pm Note Date/Time April 23, 2022 5:5 1pm [facility] [address] [place] [address] Progress Note - Wound Care 04/23/22 1744 MR#: [id number] Acct: [id number] Name: ABELARDO IVORY Rep #:[id number] : 1950 72 From: Tonia ACUNA PCP: Dr. Ezekiel Carrasco MD Status: REG RCR Location: History of Present Illness Date of Service: 04/23/22 Chief Complaint: Left wrist wound Multiple bilateral lower extremity wounds History of Wound: Patient is new to [facility] but known to me from the vascular surgery clinic. His medical history is significant for CABG, AAA rupture and repair, aortic stenosis s/p valve replacement, diabetes (not well controlled at this time per PCP note) December 2021 patient had rupture of juxtarenal AAA which was emergently repaired at [facility]. Patient was understandably quite ill following [...] Air Charges/Coding Wound Center CF Procedures 96XXX-98XXX: 94705 RMVL DEVITAL TIS 20 CM/< Multi Select Codes Wound Center CF Procedures 96XXX-98XXX: 49474 RMVL DEVITAL TIS 20 CM/< Physical Exam [...] appearance. Some have healed since last week. [place], granulation tissue at the wound beds. Good bleeding. No significant erythema, foul odor, drainage noted. Left wrist wound with pink granulation tissue at base, minimal slough. Significantly decreased in size from last week. 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: R junior staff accountant lower leg Laterality: Right Type of Debridement: [...] Date Recorded By Document 04/09/22 13:30 AK [id number] 04/09/22 13:42 AK Document 04/16/22 14:11 AK [id number] 04/16/22 14:21 AK Document 04/23/22 14:03 PR [id number] 04/23/22 14:17 PR 04/09/22 04/16/22 04/23/22 13:30 14:11 14:03 - Today's Visit Information Type of service Initial Visit Follow-up Visit Follow-up Visit (Physician/ASSISTANT DIRECTOR OF RESIDENCE LIFE (Physician/ASSISTANT DIRECTOR OF RESIDENCE LIFE ) ) Arrival Mode Ambulatory Ambulatory Ambulatory [...] Date Recorded By Document 04/09/22 13:30 AK [id number] 04/09/22 13:42 AK Document 04/16/22 14:11 AK [id number] 04/16/22 14:21 AK Document 04/23/22 14:03 PR [id number] 04/23/22 14:17 PR 04/09/22 04/16/22 04/23/22 13:30 14:11 14:03 Wound [...] (34-66%) Medium (34-66%) %) -Granulation Quality N/A [place] Red -Slough/Fibrin Yes Yes Yes -Necrosis Amt [...] Present (0 %) %) -Granulation Quality N/A [place] -Slough/Fibrin Yes Yes Yes -Necrosis Amt Large [...] None Present (0 %) %) -Granulation Quality [place] -Slough/Fibrin Yes Yes Yes -Necrosis Amt Large [...] Present (0 %) %) -Granulation Quality N/A [place] -Slough/Fibrin Yes Yes Yes -Necrosis Amt Large [...] Date Recorded By Document 04/09/22 15:12 PL [id number] 04/09/22 15:29 PL Document 04/16/22 15:08 PL [id number] 04/16/22 15:18 PL Document 04/23/22 15:17 PL [id number] 04/23/22 15:26 PL 04/09/22 04/16/22 04/23/22 15:12 [...] Recorded Date Recorded By Document 04/09/22 15:05 PR [id number] 04/09/22 15:16 PR Document 04/16/22 14:59 KS [id number] 04/16/22 15:01 KS Document 04/23/22 14:53 [facility] [id number] 04/23/22 14:57 [facility] 04/09/22 04/16/22 04/23/22 15:05 14:59 14:53 Wound [...] Cosigner Signature (if applicable): CC: ~ Signed [facility] Work Phone: 1(597) 298-637003-10-2023 Progress note Author Tonia Jenkins [facility] April 16, 2022 4:54pm Note Date/Time April 16, 2022 4:0 8pm [facility] [address] [place] [address] Progress Note - Wound Care 04/16/22 1605 MR#: [id number] Acct: [id number] Name: ABELARDO IVORY Rep #:[id number] : 1950 72 From: Tonia ACUNA PCP: Dr. Ezekiel Carrasco MD Status: REG R Location: History of Present Illness Date of Service: 04/16/22 Chief Complaint: Left wrist wound Multiple bilateral lower extremity wounds History of Wound: Patient is new to [facility] but known to me from the vascular surgery clinic. His medical history is significant for CABG, AAA rupture and repair, aortic stenosis s/p valve replacement, diabetes (not well controlled at this time per PCP note) December 2021 patient had rupture of juxtarenal AAA which was emergently repaired at [facility]. Patient was understandably quite ill following [...] Cannula Charges/Coding Wound Center CF Procedures 96XXX-98XXX: 13706 RMVL DEVITAL TIS 20 CM/< Multi Select Codes Wound Center CF Procedures 96XXX-98XXX: 87788 RMVL DEVITAL TIS 20 CM/< Physical Exam [...] Debridement Note Debridement Note Wound debrided: R junior staff accountant lower leg Laterality: Right Type of Debridement: [...] Date Recorded By Document 04/09/22 13:30 AK [id number] 04/09/22 13:42 AK Document 04/16/22 14:11 AK [id number] 04/16/22 14:21 AK 04/09/22 04/16/22 13:30 14:11 - Today's Visit Information Type of service Initial Visit Follow-up Visit (Physician/ASSISTANT DIRECTOR OF RESIDENCE LIFE ) Arrival Mode Ambulatory Ambulatory Transfer Assistance [...] Date Recorded By Document 04/09/22 13:30 AK [id number] 04/09/22 13:42 AK Document 04/16/22 14:11 KS [id number] 04/16/22 14:21 AK 04/09/22 04/16/22 13:30 14:11 [...] Present (0 Medium (34-66%) %) -Granulation Quality [place] -Slough/Fibrin Yes Yes -Necrosis Amt Large (67-100%) [...] (0 Medium (34-66%) %) -Granulation Quality N/A [place] -Slough/Fibrin Yes Yes -Necrosis Amt Large (67-100%) [...] (0 Medium (34-66%) %) -Granulation Quality N/A [place] -Slough/Fibrin Yes Yes -Necrosis Amt Large (67-100%) [...] (0 Medium (34-66%) %) -Granulation Quality N/A [place] -Slough/Fibrin Yes Yes -Necrosis Amt Large (67-100%) [...] Date Recorded By Document 04/09/22 15:12 PL [id number] 04/09/22 15:29 PL Document 04/16/22 15:08 PL [id number] 04/16/22 15:18 PL 04/09/22 04/16/22 15:12 15:08 [...] Date Recorded By Document 04/09/22 15:05 MT [id number] 04/09/22 15:16 MT Document 04/16/22 14:59 AK [id number] 04/16/22 15:01 AK 04/09/22 04/16/22 15:05 14:59 [...] Cosigner Signature (if applicable): CC: ~ Signed [facility] Work Phone: 1(876) 599-372903-03-2023 History and physical note Author Tonia suman [facility] April 09, 2022 9:56pm Note Date/Time April 09, 2022 9:[address] [facility] [address] [place] [address] H&P Exam - Wound Care 04/09/222107 MR#: [id number] Acct: [id number] Name: ABELARDO IVORY Rep #:[id number] : 1950 72 From: Tonia ACUNA PCP: Dr. Ezekiel Carrasco MD Status: REG RCR Location: History of Present Illness Date of Service: 04/09/22 Chief Complaint: Left wrist wound Multiple bilateral lower extremity wounds History of Wound: Patient is new to [facility] but known to me from the vascular surgery clinic. His medical history is significant for CABG, AAA rupture and repair, aortic stenosis s/p valve replacement, diabetes (not well controlled at this time per PCP note) December 2021 patient had rupture of juxtarenal AAA which was emergently repaired at [facility]. Patient was understandably quite ill following [...] edema. He does not currently wear compression. [facility] Medical History Abdominal aortic aneurysm (AAA) Anemia Arthritis Atherosclerotic heart disease of [place] coronary artery without angina pectoris Bilateral inguinal [...] Debridement Note Debridement Note Wound debrided: R junior staff accountant lower leg Laterality: Right Type of Debridement: [...] Recorded Date Recorded By Document 04/09/22 13:30 KS [id number] 04/09/22 13:42 KS 04/09/22 13:30 WC - Today's Visit Information [...] Recorded Date Recorded By Document 04/09/22 13:30 KS [id number] 04/09/22 13:42 KS 04/09/22 13:30 Wound Center Nurse 1 #3 [...] Date Recorded By Document 04/09/22 15:12 PL [id number] 04/09/22 15:29 PL 04/09/22 15:12 Wound Center [...] Recorded Date Recorded By Document 04/09/22 15:05 PR [id number] 04/09/22 15:16 MT 04/09/22 15:05 Wound Care [...] Pressure Charges/Coding Wound Center CF Procedures 96XXX-98XXX: 08626 RMVL DEVITAL TIS 20 CM/< Multi Select Codes Wound Center CF Procedures 96XXX-98XXX: 38026 RMVL DEVITAL TIS 20 CM/< Assessment/Plan Assessment/Plan [...] Cosigner Signature (if applicable): CC: ~ Signed [facility] Work Phone: 1(562) 592-707601-26-[address] Banks [facility] March 04, 2022 2:42pm Note Date/Time March 04, 2022 2 :24pm [facility] Medical Records Department [address] [place] [address] Discharge Summary 03/04/22 1423 MR#: [id number] Acct: [id number] Name: ABELARDO IVORY Rep #:[id number] : 1950 72 From: Beatris Banks DO PCP: Dr. Ezekiel Carrasco MD Status: ADM IN Location: [facility] [id number] Providers Date of Admission: 03/02/22 Date [...] the medical floor and placed on IV [id number] every 8, placed on ceftriaxone and azithromycin [...] 78.5 H, Lymph % (Auto) 17.2 L, [place] % (Auto) 3.5, Eos % (Auto) 0.0, [...] Self Care Charges/Coding Visit Charges Inpatient E&M: 15090 Disch Hosp >30min 03/04/22 1442 <Electronically signed by Beatris Banks DO> Cosigner Signature (if applicable): CC: Dr. Noe Suarez MD; Dr. Ezekiel Carrasco MD; Dr. Kwame Alex MD; Dr. Beatris Banks DO~ Signed [facility] Work Phone: 1(827) 469-638601-25-[address] Banks [facility] March 03, 2022 4:12pm Note Date/Time March 03, 2022 4 :12pm [facility] Medical Records Department [address] [place] [address] Progress Note - Hospitalist 03/03/22 1608 MR#: [id number] Acct: [id number] Name: ABELARDO IVORY Rep #:[id number] : 1950 72 From: Beatris Banks DO PCP: Dr. Ezekiel Carrasco MD Status: ADM IN Location: [place] [address] Subjective Subjective Patient states he is at [...] (Auto) 78.5 H, Lymph % (Auto) 19.0, [place] % (Auto) 2.2, Eos % (Auto) 0.0, [...] as able AAA with repair -Repair at [facility] [place] in December 2021 -Continue tobacco cessation -Continue [...] no intubation Charges/Coding Visit Charges Inpatient E&M: 78690 Subs Hosp L2 03/03/22 1612 <Electronically signed by Beatris Banks DO> Cosigner Signature (if applicable): CC: ~ Signed [facility] Work Phone: 1(563) 668-214801-24-[address] Garland [facility] March 02, 2022 3:36pm Note Date/Time March 02, 2022 1 0:07am [facility] Medical Records Department [address] [place] [address] Emergency Department Summary 03/02/22 MR#: [id number] Acct: [id number] Name: ABELARDO IVORY Rep #:[id number] : [...] (AAA) Anemia Arthritis Atherosclerotic heart disease of [place] coronary artery without angina pectoris Bilateral inguinal [...] % (Auto) 66.7 Lymph % (Auto) 27.6 [place] % (Auto) 5.1 Eos % (Auto) 0.2 [...] rate of 75 no acute signs of NM or ischemia. Discharge Plan Triage Chief Complaint: [...] Provider] - Disposition Disposition: Acute Care Hospital [facility] What to do if you have Problems For any increased pain, shortness of breath, bleeding, nausea or vomiting, chestpain, or any unexpected problems, contact your Primary Care Provider. Call [facility] ([phone]) or report to the closest Emergency Room. Call 911 if necessary. 03/02/22 1536 <Electronically signed by Nhan Garland MD> Cosigner Signature (if applicable): CC: Dr. Ezekiel Carrasco MD ~ Signed [facility] Work Phone: 1(968) 204-571101-24-2023 History and physical note Author Dr. Banks [facility] March 02, 2022 1:08pm Note Date/Time March 02, 2022 1 2:36pm [facility] Medical Records Department [address] [place] [address] H&P Exam - Hospitalist 03/02/22 1233 MR#: [id number] Acct: [id number] Name: ALEJANDRAABELARDO SWEENEY Rep #:[id number] : 1950 72 From: Beatris Banks DO PCP: Dr. Ezekiel Carrasco MD Status: REG ER Location: ED HPI - General General Date of Admission: 03/02/22 Date of Service: 03/02/22 Chief Complaint: Shortness of breath HPI Narrative ABELARDO IVORY, is a 72 M who presented to the emergency department [facility] on 03/02/2022 with a chief complaint [...] 1 and started on ceftriaxone and azithromycin. [facility] Medical History Abdominal aortic aneurysm (AAA) Anemia Arthritis Atherosclerotic heart disease of [place] coronary artery without angina pectoris Bilateral inguinal [...] % (Auto) 66.7, Lymph % (Auto) 27.6, [place] % (Auto) 5.1, Eos % (Auto) 0.2, [...] as able AAA with repair -Repair at [facility] [place] in December 2021 -Continue tobacco cessation -Continue [...] no intubation Charges/Coding Visit Charges Inpatient E&M: 84488 Init Hosp L3 03/02/22 1301 <Electronically signed by Beatris Banks DO> Cosigner Signature (if applicable): CC: Dr. Ezekiel Carrasco MD; Dr. Beatris Banks DO~ Signed [facility] Work Phone: 1(674) 812-495301-24-2023 History and physical note Author Dr. Bakns [facility] March 02, 2022 1:08pm Note Date/Time March 02, 2022 1 2:36pm [facility] Medical Records Department [address] [place] [address] H&P Exam - Hospitalist 03/02/22 1233 MR#: [id number] Acct: [id number] Name: ABELARDO IVORY Rep #:[id number] : 1950 72 From: Beatris Banks DO PCP: Dr. Ezekiel Carrasco MD Status: ADM IN Location: [place] [id number] HPI - General General Date of Admission: 03/02/22 Date of Service: 03/02/22 Chief Complaint: Shortness of breath HPI Narrative ABELARDO IVORY, is a 72 M who presented to the emergency department [facility] on 03/02/2022 with a chief complaint [...] 1 and started on ceftriaxone and azithromycin. [facility] Medical History Abdominal aortic aneurysm (AAA) Anemia Arthritis Atherosclerotic heart disease of [place] coronary artery without angina pectoris Bilateral inguinal [...] History (Updated 03/02/22 @ 12:[address] Beatirs Banks DO) Smoking Status: Former smoker quit [...] % (Auto) 66.7, Lymph % (Auto) 27.6, [place] % (Auto) 5.1, Eos % (Auto) 0.2, [...] as able AAA with repair -Repair at [facility] in December 2021 -Continue [...] no intubation Charges/Coding Visit Charges Inpatient E&M: 03935 Init Hosp L3 03/02/22 1308 <Electronically signed by Beatris Banks DO> Cosigner Signature (if applicable): CC: Dr. Ezekiel Carrasco MD; Dr. Beatris Bansk DO~ Signed [facility] Work Phone: 1(154) 945-159401-24-[address] Garland [facility] March 02, 2022 3:36pm Note Date/Time March 02, 2022 1 0:07am [facility] Medical Records Department [address] [place] [address] Emergency Department Summary 03/02/22 MR#: [id number] Acct: [id number] Name: ABELARDO IVORY Rep #:[id number] : [...] (AAA) Anemia Arthritis Atherosclerotic heart disease of [place] coronary artery without angina pectoris Bilateral inguinal [...] % (Auto) 66.7 Lymph % (Auto) 27.6 [place] % (Auto) 5.1 Eos % (Auto) 0.2 [...] rate of 75 no acute signs of NM or ischemia. Discharge Plan Triage Chief Complaint: [...] Provider] - Disposition Disposition: Acute Care Hospital [facility] What to do if you have Problems For any increased pain, shortness of breath, bleeding, nausea or vomiting, chestpain, or any unexpected problems, contact your Primary Care Provider. Call [facility] ([phone]) or report to the closest Emergency Room. Call 911 if necessary. 03/02/22 1536 <Electronically signed by Nhan Garland MD> Cosigner Signature (if applicable): CC: Dr. Ezekiel Carrasco MD ~ Signed [facility] Work Phone: 1(988) 871-485812-20-2022 Miscellaneous Notes* Telephone Encounter - Oxana Martines [...] 3 weeks now. Call back number is [phone]. Physician: Holly Byrnes MD documented [place] encounter[place]11-25-20[place] Miscellaneous Notes* Telephone Encounter - Yris Pineda - 01/01/2022 3:02 PM EST Sent Patient out a reminder letter for his appointment in Jan and call no answer left a VM. PSS-MP documented in this encounterCenterville11-21-2022 History of Present illness Narrative* Venita Shah APRN.CNP - 12/28/2021 3:24 PM EST Images from the original note were not included. Critical Care Transport Note Patient Name: Abelardo Ivory Service Date: 12/28/21 Referring Physician: Vilma Referring Facility: [facility] Accepting Physician: Fitz Accepting Facility: [facility] SUBJECTIVE/CHIEF COMPLAINT: abdominal pain REASON FOR TRANSPORT: [...] carotid stenosis, and tremor. He presented to [facility] today for evaluation of acute lower [...] managing the patient requested transfer to the [facility] for tertiary and/or quaternary services unavailable at the referring facility. The physician managing the patient requested the [place] [facility] transport and treat the patient for the purpose of tertiary care, evaluation, and management of his ruptured aortic aneurysm condition(s). Air medical transport was requested to reduce the [id number]-ew-qujjkgdpvxsr, 22 minutes by air vs. approximately 75 [...] SaO2 > 93% - Expedite transport to [facility] for further workup and care The transport was completed without significant incident or change in the patient's status. The patient was transported to the the [facility] by [employer] (Helicopter) for tertiary and/or quaternary evaluation and management of his Emergent Medical and Surgical condition(s). Upon arrival to the receiving facility, a xuzy-pa-geuy report was given to bedside nursing staff [id number] and bedside medical team . Patient care [...] AAA and the Cardiovascular impairment, Respiratory impairment, BLOCK SAWYER impairment, Shock, Cardiac Arrest, and Severe metabolic abnormality which the patient had and/or had a high probability of suddenly developing. SIGNATURE: Venita Shah APRN.CNP Acute Care Nurse Practitioner [place] [facility] documented in this encounterCenterville11-21-2022 Procedure note* Venita Shah APRN.CNP - 12/28/2021 [...] PLACEMENT: Sterile PRIMARY PROCEDURALIST: BARRIE De Souza COLLECTION ADVISOR(S): Abigail Liriano RN PROCEDURE NARRATIVE Site Marked: [...] Abelardo Ivory DATE: 12/28/21 documented in this encounterCenterville01-08-2020 History of Past illness Narrative* Problem Noted [...] of this encounter (statuses as of 05/11/2021) [place]-08-2020 History of Past illness Narrative* Problem Noted [...] of this encounter (statuses as of 12/28/2021) [place]-08-2020 History of Past illness Narrative* Problem Noted [...] of this encounter (statuses as of 01/01/2022) [place]-[place]-2020 History of Past illness Narrative* Problem Noted [...] of this encounter (statuses as of 01/01/2022) [place]-[place] History of Past illness Narrative* Problem Noted [...] of this encounter (statuses as of 01/26/2022) [place]-2020 History of Past illness Narrative* Problem Noted [...] of this encounter (statuses as of 02/09/2022) [place]-06-2020 Evaluation note* Diagnosis Onset Date Resolution Status Abdominal aortic aneurysm (AAA) chronic Essential hypertension chron ic H/O coronary artery bypass surgery February 12, 2019 chronic History of aortic valve replacement February 12, 2019 chronic Hyperlipidemia [facility] Work Phone: 1(964) 667-566701-06-2020 Evaluation note* Diagnosis Onset Date Resolution Status Kidney disease acute Abdominal aortic aneurysm (AAA) chronic Essential hypertension chron ic H/O coronary artery bypass surgery February 12, 2019 chronic History of aortic valve replacement February 12, 2019 chronic Hyperlipidemia [facility] Work Phone: 1(381) 442-224101-06-2020 Evaluation note* Diagnosis Onset Date Resolution Status Kidney disease acute Abdominal aortic aneurysm (AAA) chronic Essential hypertension chron ic H/O coronary artery bypass surgery February 12, 2019 chronic History of aortic valve replacement February 12, 2019 chronic Hyperlipidemia chronic Acute respiratory failure with hypoxia acute Hypoxia acute Pleural effusion acute Pneumonia acute Chronic kidney insufficiency chronic COPD exacerbation chronic [facility] Work Phone: 1(358) 281-880801-06-2020 Evaluation note* Diagnosis Onset Date Resolution Status Kidney disease acute Abdominal aortic aneurysm (AAA) chronic Essential hypertension chron ic H/O coronary artery bypass surgery February 12, 2019 chronic History of aortic valve replacement February 12, 2019 chronic Hyperlipidemia chronic Hypoxia acute Pneumonia acute Acute respiratory failure with hypoxia resolved COPD exacerbation resolved [facility] Work Phone: 1(566) 102-522001-06-2020 Evaluation note* Diagnosis Onset Date Resolution Status [...] (AAA) chronic Atherosclerotic heart diseas e of [place] coronary artery without angina pectoris chronic Essential hypertension chron ic History of aortic valve replacement February 12, 2019 chronic Hyperlipidemia chronic Kidney disease [facility] Work Phone: 1(881) 469-989001-06-2020 Evaluation note* Diagnosis Onset Date Resolution Status [...] (AAA) chronic Atherosclerotic heart diseas e of [place] coronary artery without angina pectoris chronic Essential hypertension chron ic History of aortic valve replacement February 12, 2019 chronic Hyperlipidemia chronic Kidney disease chronic Lower extremity edema acute Abdominal aortic aneurysm (AAA) chronic Atherosclerotic heart diseas e of [place] coronary artery without angina pectoris chronic Essential hypertension chron ic History of aortic valve replacement February 12, 2019 chronic Hyperlipidemia chronic Kidney disease chronic Hypoxia acute COPD (chronic obstructive pulmonary disease) chronic Secondary pulmonary arterial hypertension chronic Tobacco dependence chronic Abdominal aortic aneurysm (AAA) [facility] Work Phone: 1(460) 675-641701-06-2020 Evaluation note* Diagnosis Onset Date Resolution Status [...] (AAA) chronic Atherosclerotic heart diseas e of [place] coronary artery without angina pectoris chronic Essential hypertension chron ic History of aortic valve replacement February 12, 2019 chronic Hyperlipidemia chronic Kidney disease chronic Lower extremity edema acute Abdominal aortic aneurysm (AAA) chronic Atherosclerotic heart diseas e of [place] coronary artery without angina pectoris chronic Essential hypertension chron ic History of aortic valve replacement February 12, 2019 chronic Hyperlipidemia chronic Kidney disease chronic Hypoxia acute COPD (chronic obstructive pulmonary disease) chronic Secondary pulmonary arterial hypertension chronic Tobacco dependence chronic Abdominal aortic aneurysm (AAA) chronic 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 acute [id number] acute Wound of left upper extremity acute [facility] Work Phone: Evaluation noteNo assessment information available [facility] Work Phone: Evaluation note* Diagnosis Abdominal aortic aneurysm (AAA) without rupture, unspecified part- Primary Edema of abdomen [facility]* Diagnosis Ruptured abdominal aortic aneurysm (AAA), unspecified part- Primary [facility]* Diagnosis Onset Date Resolution Status Hypoxia acute Pneumonia acute Acute respiratory failure with hypoxia resolved COPD exacerbation resolved Lower extremity edema acute Abdominal aortic aneurysm (AAA) chronic Atherosclerotic heart diseas e of [place] coronary artery without angina pectoris chronic Essential hypertension chron ic History of aortic valve replacement February 12, 2019 chronic Hyperlipidemia chronic Kidney disease chronic Lower extremity edema acute Abdominal aortic aneurysm (AAA) chronic Atherosclerotic heart diseas e of [place] coronary artery without angina pectoris chronic Essential hypertension chron ic History of aortic valve replacement February 12, 2019 chronic Hyperlipidemia chronic Kidney disease chronic Hypoxia acute COPD (chronic obstructive pulmonary disease) chronic Secondary pulmonary arterial hypertension chronic Tobacco dependence chronic Abdominal aortic aneurysm (AAA) chronic 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 acute [id number] acute Wound of left upper extremity acute [facility] Work Phone: Evaluation note* Diagnosis Onset Date Resolution Status Hypoxia acute Pneumonia acute Acute respiratory failure with hypoxia resolved COPD exacerbation resolved Lower extremity edema acute Abdominal aortic aneurysm (AAA) chronic Atherosclerotic heart diseas e of [place] coronary artery without angina pectoris chronic Essential hypertension chron ic History of aortic valve replacement February 12, 2019 chronic Hyperlipidemia chronic Kidney disease chronic Lower extremity edema acute Abdominal aortic aneurysm (AAA) chronic Atherosclerotic heart diseas e of [place] coronary artery without angina pectoris chronic Essential hypertension chron ic History of aortic valve replacement February 12, 2019 chronic Hyperlipidemia chronic Kidney disease chronic Hypoxia acute COPD (chronic obstructive pulmonary disease) chronic Secondary pulmonary arterial hypertension chronic Tobacco dependence chronic Abdominal aortic aneurysm (AAA) chronic 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 acute [id number] acute Wound of left upper extremity acute 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 acute [id number] acute Wound of left upper extremity acute Lower extremity edema acute Abdominal aortic aneurysm (AAA) chronic Atherosclerotic heart diseas e of [place] coronary artery without angina pectoris chronic Essential hypertension chron ic History of aortic valve replacement February 12, 2019 chronic Hyperlipidemia chronic Kidney disease [facility] Work Phone: Evaluation note* Diagnosis Onset Date Resolution Status Hypoxia acute Pneumonia acute Acute respiratory failure with hypoxia resolved COPD exacerbation resolved Lower extremity edema acute Abdominal aortic aneurysm (AAA) chronic Atherosclerotic heart diseas e of [place] coronary artery without angina pectoris chronic Essential hypertension chron ic History of aortic valve replacement February 12, 2019 chronic Hyperlipidemia chronic Kidney disease chronic Lower extremity edema acute Abdominal aortic aneurysm (AAA) chronic Atherosclerotic heart diseas e of [place] coronary artery without angina pectoris chronic Essential hypertension chron ic History of aortic valve replacement February 12, 2019 chronic Hyperlipidemia chronic Kidney disease chronic Hypoxia acute COPD (chronic obstructive pulmonary disease) chronic Secondary pulmonary arterial hypertension chronic Tobacco dependence chronic Abdominal aortic aneurysm (AAA) chronic 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 acute [id number] acute Wound of left upper extremity acute Lower extremity edema acute Abdominal aortic aneurysm (AAA) chronic Atherosclerotic heart diseas e of [place] coronary artery without angina pectoris chronic Essential hypertension chron ic History of aortic valve replacement February 12, 2019 chronic Hyperlipidemia chronic Kidney disease chronic 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 acute [id number] acute Wound of left upper extremity acute [facility] Work Phone: Evaluation note* Diagnosis Onset Date Resolution Status 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 acute [id number] acute Wound of left upper extremity acute Lower extremity edema acute Abdominal aortic aneurysm (AAA) chronic Atherosclerotic heart diseas e of [place] coronary artery without angina pectoris chronic Essential hypertension chron ic History of aortic valve replacement February 12, 2019 chronic Hyperlipidemia chronic Kidney disease chronic 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 acute [id number] acute Wound of left upper extremity acute COPD (chronic obstructive pulmonary disease) chronic Secondary pulmonary arterial hypertension chronic Tobacco dependence [facility] Work Phone: evaluation note* Diagnosis Onset Date Resolution Status S/P AAA repair chronic COPD (chronic obstructive pulmonary disease) chronic Smoking greater than 40 pack years chronic Abdominal aortic aneurysm (AAA) chronic Atherosclerotic heart diseas e of [place] coronary artery without angina pectoris chronic Essential hypertension chron ic History of aortic valve replacement February 12, 2019 chronic Hyperlipidemia chronic Smoking greater than 40 pack years [facility] Work Phone: Evaluation note* Diagnosis Onset Date Resolution Status COPD (chronic obstructive pulmonary disease) chronic Smoking greater than 40 pack years chronic Abdominal aortic aneurysm (AAA) chronic Atherosclerotic heart diseas e of [place] coronary artery without angina pectoris chronic Essential hypertension chron ic History of aortic valve replacement February 12, 2019 chronic Hyperlipidemia chronic Smoking greater than 40 pack years [facility] Work Phone: Evaluation note* Diagnosis Malignant neoplasm of urinary bladder, unspecified site (HCC) [facility]* Diagnosis Malignant neoplasm of urinary bladder, unspecified site (HCC)- Primary Nocturia Hematuria, gross Gross hematuria [facility] Diagnosis Malignant neoplasm of urinary bladder, unspecified site (HCC)- Primary Malignant neoplasm of urinary bladder, unspecified site (HCC) [facility]* Diagnosis Malignant neoplasm of urinary bladder, unspecified site (HCC)- Primary Hematuria, gross Gross hematuria Malignant neoplasm of urinary bladder, unspecified site (HCC) Gross hematuria [facility]* Diagnosis Preop testing- Primary Preoperative examination, unspecified 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 pectoris Essential hypertension Unspecified [...] Assessment & Plan Note - Shoulders, Marisela, APPEALS COURT ASSOCIATE JUSTICE.ASSISTANT DIRECTOR OF RESIDENCE LIFE - 08/16/2024 10:34 AM EDTAssociated Problem(s): CKD [...] artery disease involving coronary bypass graft of [place] heart without angina pectoris Assessment: Followed by [facility] - H/O CABG - taking [...] the prior echocardiographic exam performed on 09/29/2020 ([place]). Limited study. * Assessment & Plan Note - Marisela Pichardo APRN.CNP - 08/16/2024 7:26 AM EDT Associated Problem(s): Preop testing Assessment : See Note for medical conditions which may affect kirstie-operative course was addressed in visit today. 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 pectoris Essential hypertension Unspecified [...] Other hydronephrosis documented in this encounter [facility] note* Diagnosis Preop testing- Primary Preoperative examination, unspecified 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 pectoris Essential hypertension Unspecified [...] Gross hematuria documented in this encounter [facility] note* Diagnosis Preop testing- Primary Preoperative examination, unspecified 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 pectoris Essential hypertension Unspecified [...] (HCC)- Primary documented in this encounter [facility] note* Diagnosis Preop testing- Primary Preoperative examination, unspecified 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 pectoris Essential hypertension Unspecified [...] on left Hydroureter 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 pectoris Essential hypertension Unspecified [...] of urinary bladder documented in this encounter [facility] note* Diagnosis Preop testing- Primary Preoperative examination, unspecified 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 pectoris Essential hypertension Unspecified [...] on left Hydroureter [facility]* Diagnosis Preop testing- Primary Preoperative examination, unspecified 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 pectoris Essential hypertension Unspecified [...] (HCC) Other hydronephrosis [facility] Diagnosis Preop testing- Primary Preoperative examination, unspecified 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 pectoris Essential hypertension Unspecified [...] sites of bladder documented in this encounter [facility] note* Diagnosis Preop testing- Primary Preoperative examination, unspecified 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 pectoris Essential hypertension Unspecified [...] sites of bladder documented in this encounter [facility] note* Diagnosis Preop testing- Primary Preoperative examination, unspecified 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 pectoris Essential hypertension Unspecified [...] of urinary bladder documented in this encounter [facility] note* Diagnosis Preop testing- Primary Preoperative examination, unspecified 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 pectoris Essential hypertension Unspecified [...] unspecified site (HCC) [facility]* Diagnosis Preop testing- Primary Preoperative examination, unspecified 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 pectoris Essential hypertension Unspecified [...] of urinary bladder 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 pectoris Essential hypertension Unspecified [...] site (HCC)- Primary [facility]* Diagnosis Preop testing- Primary Preoperative examination, unspecified 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 pectoris Essential hypertension Unspecified [...] sites of bladder 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 pectoris Essential hypertension Unspecified [...] of urinary bladder [facility]* Diagnosis Preop testing- Primary Preoperative examination, unspecified 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 pectoris Essential hypertension Unspecified [...] of urinary bladder [facility]* Diagnosis Preop testing- Primary Preoperative examination, unspecified 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 pectoris Essential hypertension Unspecified [...] of urinary bladder [facility]* Diagnosis Preop testing- Primary Preoperative examination, unspecified 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 pectoris Essential hypertension Unspecified [...] sites of bladder [facility] Diagnosis Preop testing- Primary Preoperative examination, unspecified 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 pectoris Essential hypertension Unspecified [...] neoplasm of prostate documented in this encounter [facility] note* Diagnosis Preop testing- Primary Preoperative examination, unspecified 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 pectoris Essential hypertension Unspecified [...] sites of bladder documented in this encounter [facility] note* Diagnosis Preop testing- Primary Preoperative examination, unspecified 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 pectoris Essential hypertension Unspecified [...] sites of bladder documented in this encounter [facility] note* Diagnosis Preop testing- Primary Preoperative examination, unspecified 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 pectoris Essential hypertension Unspecified [...] of urinary bladder [facility]* Diagnosis Preop testing- Primary Preoperative examination, unspecified 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 pectoris Essential hypertension Unspecified [...] site (HCC)- [facility] Additional Instructions Your urine [...] with Tylenol and or ibuprofen for pain [facility]anc[facility] Work Phone: Hospital Discharge instructionsAmbulatory Orders* Vascular Location: None Selected [facility] Work Phone: Reason for referral (narrative)* Outpatient Procedure (Routine) - Authorized Specialty Diagnoses / Procedures Referred By Contac t Referred To [facility] Diagnoses Abdominal aortic aneurysm (AAA) without rupture, unspecified part Edema of abdomen Procedures US ABD AORTA COMPLETE VAS LAB DUP-SCAN AORTA IVC ILIAC VASCL/BPGS COMPLETE Jamin Wilcox MD [address] [place] [address] [facility] [place] [address] [place] [address] Referral ID Status Reason Start Date Expiration Date Visits Requested Visits Authorized [id number] Authorized Auto-Generat ed Referral 2 01/01/2023 1 1 [facility] for referral (narrative)No reason for referral information availableWLancaster Municipal Hospital Work Phone: Reason for visit Narrative* MRI/CT (Routine) - Closed Specialty Diagnoses / Procedures Referred By Jeff t Referred To Contact CT IMAGING Diagnoses Malignant neoplasm of urinary bladder, unspecified site (HCC) Procedures CT CHEST W IVCON DIAGNOSTIC COMPUTED TOMOGRAPHY THORAX W/CONTRAST Codey Christianson MD [address] [place] [address] Phone: tel: fax: [facility] IMAGING [id number] Referral ID Status Reason Start Date Expiration Date V isits Requested Visits Authorized [id number] Closed Auto-Generate d Referral 07/26/2024 08/25/2025 1 1 [place] Advance Directives No Advanced Directives Records FoundDocuments on File Type Date Recorded Patient Lead Producer Expl anation Advance Directive(s) 02/06/2019 12:13 PM Date Activated Date Inactivated Comments 12/28/2021 2:50 PM 12/28/2021 8:54 PM Question Answer Comments Full Code Order Discussed With: Patient Documents on File Type Date Recorded Patient Lead Producer Expl anation Advance Directive(s) 02/08/2019 1:40 PM Advance Directive(s) 02/06/2019 12:13 PM scanned in today Advance Directive(s) 02/06/2019 12:13 PM Advance Directive(s) 01/24/2019 2:53 PM Advance Directive Response Recorded Date/ Time Advance Directives Yes November 27, 2018 7:21am Living Will Yes November 27 7:21am Power of Executive Assistant To General Counsel Yes November 27, 2018 7:21am Advance Directive Response Recorded Date/ Time Advance Directives Yes November 27, 2018 6:21am Living Will Yes December 28, 022 10:34am Power of Executive Assistant To General Counsel No December 28, 2021 10:34am Latest Code Status on File Code Status Date Activated Date Inactivated Comments Full Code 12/28/2021 2:50 PM 12/28/2021 8:54 PM Full Code Order Discussed With: Patient Documents on File Type Date Recorded Patient Lead Producer Expl anation Advance Directive(s) 02/06/2019 12:13 PM Latest Code Status on File Code Status Date Activated Date Inactivated Comments Full Code 12/28/2021 2:50 PM 12/28/2021 8:54 PM Advance Directive Response Recorded Date/ Time Advance Directives Yes November 27, 2018 6:21am Living Will Yes March 02 9:10am Power of Executive Assistant To General Counsel No March 02, 2022 9:10am Advance Directive Response Recorded Date/ Time Advance Directives Yes November 27, 2018 6:21am Living Will Yes March 02 4:52pm Power of Executive Assistant To General Counsel No March 02, 2022 4:52pm Advance Directive Response Recorded Date/ Time Advance Directives Yes November 27, 2018 6:21am Living Will No March 22 5:01pm Power of Executive Assistant To General Counsel No March 22, 2022 5:01pm Advance Directive Response Recorded Date/ Time Advance Directives Yes November 27, 2018 7:21am Living Will No March 22 6:01pm Power of Executive Assistant To General Counsel No March 22, 2022 6:01pm Advance Directive Response Recorded Date/ Time Living Will No March 22 6:01pm Do you have a Healthcare Power of Executive Assistant To General Counsel? No March 22, 2022 6:01pm Living Will Yes January 08 11:15am Do you have a Healthcare Power of Executive Assistant To General Counsel? Yes January 09, 2024 11:15am Name of Medical Power of Executive Assistant To General Counsel CANDIE CABRAL January 09, 2024 11:15am Advance Directives Yes November 27, 2018 7:21am Advance Directive Response Recorded Date/ Time Living Will No March 22 6:01pm Do you have a Healthcare Pow er of Executive Assistant To General Counsel? No March 22, 2022 6:01pm Living Will Yes May 16, 2024 10:19pm Do you have a Healthcare Pow er of Executive Assistant To General Counsel? Yes May 16, 2024 10:19pm Name of Medical Power of Executive Assistant To General Counsel daughter Candie Cabral May 16, 2024 10:19pm Living Will Yes January 08 11:15am Do you have a Healthcare Pow er of Executive Assistant To General Counsel? Yes January 09, 2024 11:15am Name of Medical Power of Executive Assistant To General Counsel CANDIE CABRAL January 09, 2024 11:15am Advance Directives Yes November 27, 2018 7:21am Advance Directive Response Recorded Date/ Time Living Will No March 22 6:01pm Do you have a Healthcare Pow er of Executive Assistant To General Counsel? No March 22, 2022 6:01pm Advance Directives Yes June 15, 2024 8:41am Living Will Yes May 16, 2024 10:19pm Do you have a Healthcare Pow er of Executive Assistant To General Counsel? Yes May 16, 2024 10:19pm Name of Medical Power of Executive Assistant To General Counsel daughter Candie Cabral May 16, 2024 10:19pm Advance Directive Response Recorded Date/ Time Living Will No March 22 023 6:01pm Do you have a Healthcare Pow er of Executive Assistant To General Counsel? No March 22, 2022 6:01pm Advance Directives Yes June 15, 2024 8:41am Living Will Yes May 16, 2024 10:19pm Do you have a Healthcare Pow er of Executive Assistant To General Counsel? Yes May 16, 2024 10:19pm Name of Medical Power of Executive Assistant To General Counsel daughter Candie Cabral May 16, 2024 10:19pm Do you have a Healthcare Pow er of Executive Assistant To General Counsel? No June 13, 2024 10:26am Advance Directive Response Recorded Date/ Time Living Will No March 22 6:01pm Do you have a Healthcare Pow er of Executive Assistant To General Counsel? No March 22, 2022 6:01pm Advance Directives Yes June 15, 2024 8:41am Living Will Yes May 16, 2024 10:19pm Do you have a Healthcare Pow er of Executive Assistant To General Counsel? Yes May 16, 2024 10:19pm Name of Medical Power of Executive Assistant To General Counsel daughter Candie Cabral May 16, 2024 10:19pm Do you have a Healthcare Pow er of Executive Assistant To General Counsel? No June 27, 2024 3:48pm Date Activated Date Inactivated Comments 12/28/2021 2:50 PM 12/28/2021 8:54 PM Question Answer Comments Full Code Order Discussed With: Patient Advance Directive Response Recorded Date/ Time Advance Directives Yes June 15, 2024 8:41am Living Will Yes May 16, 2024 10:19pm Do you have a Healthcare Pow er of Executive Assistant To General Counsel? Yes May 16, 2024 10:19pm Name of Medical Power of Executive Assistant To General Counsel jatin Cabral May 16, 2024 10:19pm Do you have a Healthcare Pow er of Executive Assistant To General Counsel? No June 27, 2024 3:48pm Advance Directive Response Recorded Date/ Time Advance Directives Yes June 15, 2024 8:41am Do you have a Healthcare Power of Executive Assistant To General Counsel? No June 27, 2024 3:48pm Chief Complaint [...] RLL CAP RLL CHF EVERYTHING CHF per PREDATOR CONTROL TRAPPER /L.Katelynson Reason for Visit Abdominal aortic ane urysm (AAA) Essential hypertension H/O coronary artery bypass surgery History of aortic valve replacement Hyperlipidemia Kidney disease Hypoxia Pneumonia Acute respiratory failure with hypoxia COPD exacerbation Lower extremity edema Abdominal aortic aneurysm (AAA) Atherosclerotic heart disease of [place] coronary artery without angina pectoris Essential hypertension History of aortic valve replacement Hyperlipidemia Kidney disease Chief Complaint ABD 6 M FU E ORDERS/2 ORDERING DOCTORS EORDER RUPTURED ABDOMINAL AORTIC ANEURYSM/RX HERE CAP RLL Shortness of breath CAP RLL CAP RLL CHF EVERYTHING CHF per PREDATOR CONTROL TRAPPER /L.[place] EORDER PER [facility] F/U BILAT LOWER PAIN Amb Documentation EORDER Reason for Visit Abdominal aortic ane urysm (AAA) Essential hypertension H/O coronary artery bypass surgery History of aortic valve replacement Hyperlipidemia Kidney disease Hypoxia Pneumonia Acute respiratory failure with hypoxia COPD exacerbation Lower extremity edema Abdominal aortic aneurysm (AAA) Atherosclerotic heart disease of [place] coronary artery without angina pectoris Essential hypertension History of aortic valve replacement Hyperlipidemia Kidney disease Lower extremity edema Abdominal aortic aneurysm (AAA) Atherosclerotic heart disease of [place] coronary artery without angina pectoris Essential hypertension History of aortic valve replacement Hyperlipidemia Kidney disease Hypoxia COPD (chronic obstructive pulmonary disease) Secondary pulmonary arterial hypertension Tobacco dependence Abdominal aortic aneurysm (AAA) Chief Complaint ABD 6 M FU E ORDERS/2 ORDERING DOCTORS EORDER RUPTURED ABDOMINAL AORTIC ANEURYSM/RX HERE CAP RLL Shortness of breath CAP RLL CAP RLL CHF EVERYTHING CHF per PREDATOR CONTROL TRAPPER /L.[place] EORDER PER [facility] F/U BILAT LOWER PAIN Amb Documentation EORDER FOOT PAIN wound wound Reason for Visit Abdominal aortic ane urysm (AAA) Essential hypertension H/O coronary artery bypass surgery History of aortic valve replacement Hyperlipidemia Kidney disease Hypoxia Pneumonia Acute respiratory failure with hypoxia COPD exacerbation Lower extremity edema Abdominal aortic aneurysm (AAA) Atherosclerotic heart disease of [place] coronary artery without angina pectoris Essential hypertension History of aortic valve replacement Hyperlipidemia Kidney disease Lower extremity edema Abdominal aortic aneurysm (AAA) Atherosclerotic heart disease of [place] coronary artery without angina pectoris Essential hypertension History of aortic valve replacement Hyperlipidemia Kidney disease Hypoxia COPD (chronic obstructive pulmonary disease) Secondary pulmonary arterial hypertension Tobacco dependence Abdominal aortic aneurysm (AAA) 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 [id number] Wound of left upper extremity Chief Complaint EORDER RUPTURED ABDOMINAL AORTIC ANEURYSM/RX HERE CAP RLL Shortness of breath CAP RLL CAP RLL CHF EVERYTHING CHF per PREDATOR CONTROL TRAPPER /L.[place] EORDER PER [facility] F/U BILAT LOWER PAIN Amb Documentation EORDER FOOT PAIN wound wound wound wound J44.9 - Chronic obstructive pulmonary disease, uns J44.9 - Chronic obstructive pulmonary disease, uns wound wound Reason for Visit Hypoxia Pneumonia Acute respiratory failure with hypoxia COPD exacerbation Lower extremity edema Abdominal aortic aneurysm (AAA) Atherosclerotic heart disease of [place] coronary artery without angina pectoris Essential hypertension History of aortic valve replacement Hyperlipidemia Kidney disease Lower extremity edema Abdominal aortic aneurysm (AAA) Atherosclerotic heart disease of [place] coronary artery without angina pectoris Essential hypertension History of aortic valve replacement Hyperlipidemia Kidney disease Hypoxia COPD (chronic obstructive pulmonary disease) Secondary pulmonary arterial hypertension Tobacco dependence Abdominal aortic aneurysm (AAA) 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 [id number] Wound of left upper extremity Chief Complaint EORDER RUPTURED ABDOMINAL AORTIC ANEURYSM/RX HERE CAP RLL Shortness of breath CAP RLL CAP RLL CHF EVERYTHING CHF per PREDATOR CONTROL TRAPPER /L.[place] EORDER PER [facility] F/U BILAT LOWER PAIN Amb Documentation EORDER [...] aortic aneurysm (AAA) Atherosclerotic heart disease of [place] coronary artery without angina pectoris Essential hypertension History of aortic valve replacement Hyperlipidemia Kidney disease Lower extremity edema Abdominal aortic aneurysm (AAA) Atherosclerotic heart disease of [place] coronary artery without angina pectoris Essential hypertension History of aortic valve replacement Hyperlipidemia Kidney disease Hypoxia COPD (chronic obstructive pulmonary disease) Secondary pulmonary arterial hypertension Tobacco dependence Abdominal aortic aneurysm (AAA) 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 [id number] Wound of left upper extremity 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 [id number] Wound of left upper extremity Lower extremity edema Abdominal aortic aneurysm (AAA) Atherosclerotic heart disease of [place] coronary artery without angina pectoris Essential hypertension History of aortic valve replacement Hyperlipidemia Kidney disease Chief Complaint EORDER RUPTURED ABDOMINAL AORTIC ANEURYSM/RX HERE CAP RLL Shortness of breath CAP RLL CAP RLL CHF EVERYTHING CHF per PREDATOR CONTROL TRAPPER /L.[place] EORDER PER [facility] F/U BILAT LOWER PAIN Amb Documentation EORDER [...] aortic aneurysm (AAA) Atherosclerotic heart disease of [place] coronary artery without angina pectoris Essential hypertension History of aortic valve replacement Hyperlipidemia Kidney disease Lower extremity edema Abdominal aortic aneurysm (AAA) Atherosclerotic heart disease of [place] coronary artery without angina pectoris Essential hypertension History of aortic valve replacement Hyperlipidemia Kidney disease Hypoxia COPD (chronic obstructive pulmonary disease) Secondary pulmonary arterial hypertension Tobacco dependence Abdominal aortic aneurysm (AAA) 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 [id number] Wound of left upper extremity Lower extremity edema Abdominal aortic aneurysm (AAA) Atherosclerotic heart disease of [place] coronary artery without angina pectoris Essential hypertension History of aortic valve replacement Hyperlipidemia Kidney disease 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 [id number] Wound of left upper extremity Chief Complaint RUPTURED ABDOMINAL A ORTIC ANEURYSM/RX HERE CAP RLL Shortness of breath CAP RLL CAP RLL CHF EVERYTHING CHF per PREDATOR CONTROL TRAPPER /L.Abad EORDER PER [facility] F/U BILAT LOWER PAIN Amb Documentation EORDER [...] aortic aneurysm (AAA) Atherosclerotic heart disease of [place] coronary artery without angina pectoris Essential hypertension History of aortic valve replacement Hyperlipidemia Kidney disease Lower extremity edema Abdominal aortic aneurysm (AAA) Atherosclerotic heart disease of [place] coronary artery without angina pectoris Essential hypertension History of aortic valve replacement Hyperlipidemia Kidney disease Hypoxia COPD (chronic obstructive pulmonary disease) Secondary pulmonary arterial hypertension Tobacco dependence Abdominal aortic aneurysm (AAA) 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 [id number] Wound of left upper extremity Lower extremity edema Abdominal aortic aneurysm (AAA) Atherosclerotic heart disease of [place] coronary artery without angina pectoris Essential hypertension History of aortic valve replacement Hyperlipidemia Kidney disease 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 [id number] Wound of left upper extremity Chief Complaint wound wound J44.9 - Chronic obstructive pulmonary disease, uns J44.9 - Chronic obstructive pulmonary disease, uns wound wound J44.9 - Chronic obstructive pulmonary disease, uns J44.9 - Chronic obstructive pulmonary disease, uns wound 4-6 WK F/U EORDER wound wound wound wound 3 M FU Reason for Visit 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 [id number] Wound of left upper extremity Lower extremity edema Abdominal aortic aneurysm (AAA) Atherosclerotic heart disease of [place] coronary artery without angina pectoris Essential hypertension History of aortic valve replacement Hyperlipidemia Kidney disease 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 [id number] Wound of left upper extremity COPD (chronic [...] ulcer of ankle with fat layer exposed [id number] Wound of left upper extremity Lower extremity edema Abdominal aortic aneurysm (AAA) Atherosclerotic heart disease of [place] coronary artery without angina pectoris Essential hypertension History of aortic valve replacement Hyperlipidemia Kidney disease 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 [id number] Wound of left upper extremity COPD (chronic [...] aortic aneurysm (AAA) Atherosclerotic heart disease of [place] coronary artery without angina pectoris Essential hypertension History of aortic valve replacement Hyperlipidemia Smoking greater than 40 pack years Chief Complaint 6 M FU TOBACO 1 Y FU INT LABS VALVE REPLACEMENT EVAL Amb Documentation Reason for Visit COPD (chronic obstru ctive pulmonary disease) Smoking greater than 40 pack years Abdominal aortic aneurysm (AAA) Atherosclerotic heart disease of [place] coronary artery without angina pectoris Essential hypertension [...] June 8:36am Atherosclerotic heart diseas e of [place] coronary artery without angina pectoris June 19, [...] June 8:36am Atherosclerotic heart diseas e of [place] coronary artery without angina pectoris June 19, 2024 8:36am Essential hypertension June 19, 2024 8: 36am History of aortic valve replacement June 19, 2024 8:36am Hyperlipidemia June 19, 2024 8:36a m Smoking greater than 40 pack years June 072024 8:36am Pre-operative cardiovascular examination August 30, 2024 7:53am Abdominal aortic aneurysm (AAA) August 7:53am Atherosclerotic heart diseas e of [place] coronary artery without angina pectoris August 30, [...] June 8:36am Atherosclerotic heart diseas e of [place] coronary artery without angina pectoris June 19, 2024 8:36am Essential hypertension June 19, 2024 8: 36am History of aortic valve replacement June 19, 2024 8:36am Hyperlipidemia June 19, 2024 8:36a m Smoking greater than 40 pack years June 072024 8:36am Abdominal aortic aneurysm (AAA) August 7:53am Atherosclerotic heart diseas e of [place] coronary artery without angina pectoris August 30, [...] PHYSICAL THERAPY EVALUATION HIGH COMPLEX 45 MINS Jamni Wilcox MD [address] [place] [address] [facility] [address] [place] [address] Referral ID Status Reason Start Date Expiration Date Visits Requested Visits Authorized [id number] Authorized PCP Requested Referral Auto-Generate d Referral 2 02/03/2023 99 99 Summary Purpose Additional Source Comments Source Comments (unrecognize d section and content) In the event this informatio n is protected by the Federal Confidentiality of Alcohol and Drug Abuse Patient Records regulations: The Federal rules restrict any use of the information to criminally investigate or prosecute any alcohol or drug abuse patient.[place] the event this information is protected by the Federal Confidentiality of Alcohol and Drug Abuse Patient Records regulations: The Federal rules restrict any use of the information to criminally investigate or prosecute any alcohol or drug abuse patient.[place]In the event this information is protected by the Federal Confidentiality of Alcohol and Drug Abuse Patient Records regulations: The Federal rules restrict any use of the information to criminally investigate or prosecute any alcohol or drug abuse patient.[place]In the event this information is protected by the Federal Confidentiality of Alcohol and Drug Abuse Patient Records regulations: The Federal rules restrict any use of the information to criminally investigate or prosecute any alcohol or drug abuse patient.[place]In the event this information is protected by the Federal Confidentiality of Alcohol and Drug Abuse Patient Records regulations: The Federal rules restrict any use of the information to criminally investigate or prosecute any alcohol or drug abuse patient.[place]In the event this information is protected by the Federal Confidentiality of Alcohol and Drug Abuse Patient Records regulations: The Federal rules restrict any use of the information to criminally investigate or prosecute any alcohol or drug abuse patient.[place]In the event this information is protected by the Federal Confidentiality of Alcohol and Drug Abuse Patient Records regulations: The Federal rules restrict any use of the information to criminally investigate or prosecute any alcohol or drug abuse patient.[place]In the event this information is protected by the Federal Confidentiality of Alcohol and Drug Abuse Patient Records regulations: The Federal rules restrict any use of the information to criminally investigate or prosecute any alcohol or drug abuse patient.[place]In the event this information is protected by the Federal Confidentiality of Alcohol and Drug Abuse Patient Records regulations: The Federal rules restrict any use of the information to criminally investigate or prosecute any alcohol or drug abuse patient.[place]In the event this information is protected by the Federal Confidentiality of Alcohol and Drug Abuse Patient Records regulations: The Federal rules restrict any use of the information to criminally investigate or prosecute any alcohol or drug abuse patient.[place]In the event this information is protected by the Federal Confidentiality of Alcohol and Drug Abuse Patient Records regulations: The Federal rules restrict any use of the information to criminally investigate or prosecute any alcohol or drug abuse patient.[place]In the event this information is protected by the Federal Confidentiality of Alcohol and Drug Abuse Patient Records regulations: The Federal rules restrict any use of the information to criminally investigate or prosecute any alcohol or drug abuse patient.[place]In the event this information is protected by the Federal Confidentiality of Alcohol and Drug Abuse Patient Records regulations: The Federal rules restrict any use of the information to criminally investigate or prosecute any alcohol or drug abuse patient.[place]In the event this information is protected by the Federal Confidentiality of Alcohol and Drug Abuse Patient Records regulations: The Federal rules restrict any use of the information to criminally investigate or prosecute any alcohol or drug abuse patient.[place]In the event this information is protected by the Federal Confidentiality of Alcohol and Drug Abuse Patient Records regulations: The Federal rules restrict any use of the information to criminally investigate or prosecute any alcohol or drug abuse patient.[place]In the event this information is protected by the Federal Confidentiality of Alcohol and Drug Abuse Patient Records regulations: The Federal rules restrict any use of the information to criminally investigate or prosecute any alcohol or drug abuse patient.[place]In the event this information is protected by the Federal Confidentiality of Alcohol and Drug Abuse Patient Records regulations: The Federal rules restrict any use of the information to criminally investigate or prosecute any alcohol or drug abuse patient.[place]In the event this information is protected by the Federal Confidentiality of Alcohol and Drug Abuse Patient Records regulations: The Federal rules restrict any use of the information to criminally investigate or prosecute any alcohol or drug abuse patient.[place]In the event this information is protected by the Federal Confidentiality of Alcohol and Drug Abuse Patient Records regulations: The Federal rules restrict any use of the information to criminally investigate or prosecute any alcohol or drug abuse patient.[place]In the event this information is protected by the Federal Confidentiality of Alcohol and Drug Abuse Patient Records regulations: The Federal rules restrict any use of the information to criminally investigate or prosecute any alcohol or drug abuse patient.[place]In the event this information is protected by the Federal Confidentiality of Alcohol and Drug Abuse Patient Records regulations: The Federal rules restrict any use of the information to criminally investigate or prosecute any alcohol or drug abuse patient.[place]In the event this information is protected by the Federal Confidentiality of Alcohol and Drug Abuse Patient Records regulations: The Federal rules restrict any use of the information to criminally investigate or prosecute any alcohol or drug abuse patient.[place]In the event this information is protected by the Federal Confidentiality of Alcohol and Drug Abuse Patient Records regulations: The Federal rules restrict any use of the information to criminally investigate or prosecute any alcohol or drug abuse patient.[place]In the event this information is protected by the Federal Confidentiality of Alcohol and Drug Abuse Patient Records regulations: The Federal rules restrict any use of the information to criminally investigate or prosecute any alcohol or drug abuse patient.[place]In the event this information is protected by the Federal Confidentiality of Alcohol and Drug Abuse Patient Records regulations: The Federal rules restrict any use of the information to criminally investigate or prosecute any alcohol or drug abuse patient.[place]In the event this information is protected by the Federal Confidentiality of Alcohol and Drug Abuse Patient Records regulations: The Federal rules restrict any use of the information to criminally investigate or prosecute any alcohol or drug abuse patient.[place]In the event this information is protected by the Federal Confidentiality of Alcohol and Drug Abuse Patient Records regulations: The Federal rules restrict any use of the information to criminally investigate or prosecute any alcohol or drug abuse patient.[place]In the event this information is protected by the Federal Confidentiality of Alcohol and Drug Abuse Patient Records regulations: The Federal rules restrict any use of the information to criminally investigate or prosecute any alcohol or drug abuse patient.[place]In the event this information is protected by the Federal Confidentiality of Alcohol and Drug Abuse Patient Records regulations: The Federal rules restrict any use of the information to criminally investigate or prosecute any alcohol or drug abuse patient.[place]In the event this information is protected by the Federal Confidentiality of Alcohol and Drug Abuse Patient Records regulations: The Federal rules restrict any use of the information to criminally investigate or prosecute any alcohol or drug abuse patient.[place]In the event this information is protected by the Federal Confidentiality of Alcohol and Drug Abuse Patient Records regulations: The Federal rules restrict any use of the information to criminally investigate or prosecute any alcohol or drug abuse patient.[place]In the event this information is protected by the Federal Confidentiality of Alcohol and Drug Abuse Patient Records regulations: The Federal rules restrict any use of the information to criminally investigate or prosecute any alcohol or drug abuse patient.[place]In the event this information is protected by the Federal Confidentiality of Alcohol and Drug Abuse Patient Records regulations: The Federal rules restrict any use of the information to criminally investigate or prosecute any alcohol or drug abuse patient.[place]In the event this information is protected by the Federal Confidentiality of Alcohol and Drug Abuse Patient Records regulations: The Federal rules restrict any use of the information to criminally investigate or prosecute any alcohol or drug abuse patient.[place]In the event this information is protected by the Federal Confidentiality of Alcohol and Drug Abuse Patient Records regulations: The Federal rules restrict any use of the information to criminally investigate or prosecute any alcohol or drug abuse patient.[place]In the event this information is protected by the Federal Confidentiality of Alcohol and Drug Abuse Patient Records regulations: The Federal rules restrict any use of the information to criminally investigate or prosecute any alcohol or drug abuse patient.[place]In the event this information is protected by the Federal Confidentiality of Alcohol and Drug Abuse Patient Records regulations: The Federal rules restrict any use of the information to criminally investigate or prosecute any alcohol or drug abuse patient.[place]In the event this information is protected by the Federal Confidentiality of Alcohol and Drug Abuse Patient Records regulations: The Federal rules restrict any use of the information to criminally investigate or prosecute any alcohol or drug abuse patient.[place]In the event this information is protected by the Federal Confidentiality of Alcohol and Drug Abuse Patient Records regulations: The Federal rules restrict any use of the information to criminally investigate or prosecute any alcohol or drug abuse patient.[place]In the event this information is protected by the Federal Confidentiality of Alcohol and Drug Abuse Patient Records regulations: The Federal rules restrict any use of the information to criminally investigate or prosecute any alcohol or drug abuse patient.[place]In the event this information is protected by the Federal Confidentiality of Alcohol and Drug Abuse Patient Records regulations: The Federal rules restrict any use of the information to criminally investigate or prosecute any alcohol or drug abuse patient.[place]In the event this information is protected by the Federal Confidentiality of Alcohol and Drug Abuse Patient Records regulations: The Federal rules restrict any use of the information to criminally investigate or prosecute any alcohol or drug abuse patient.[place]In the event this information is protected by the Federal Confidentiality of Alcohol and Drug Abuse Patient Records regulations: The Federal rules restrict any use of the information to criminally investigate or prosecute any alcohol or drug abuse patient.[place]In the event this information is protected by the Federal Confidentiality of Alcohol and Drug Abuse Patient Records regulations: The Federal rules restrict any use of the information to criminally investigate or prosecute any alcohol or drug abuse patient.[place]In the event this information is protected by the Federal Confidentiality of Alcohol and Drug Abuse Patient Records regulations: The Federal rules restrict any use of the information to criminally investigate or prosecute any alcohol or drug abuse patient.[place]In the event this information is protected by the Federal Confidentiality of Alcohol and Drug Abuse Patient Records regulations: The Federal rules restrict any use of the information to criminally investigate or prosecute any alcohol or drug abuse patient.[place]In the event this information is protected by the Federal Confidentiality of Alcohol and Drug Abuse Patient Records regulations: The Federal rules restrict any use of the information to criminally investigate or prosecute any alcohol or drug abuse patient.[place] Reason for Visit (unrecogniz ed section and content) Reason Comments Patient Update Reason Comments Critical Care Transport Reason Comments Appointment Reason Comments Surgical Followup Reason Comments Radiology CT Specialty Diagnoses / Procedures Referred By Contac t Referred To Contact CT IMAGING Diagnoses Malignant neoplasm of urinary bladder, unspecified site (HCC) Procedures CT CHEST W IVCON DIAGNOSTIC COMPUTED TOMOGRAPHY THORAX W/CONTRAST Codey Christianson MD [address] [place] [address] Phone: tel: fax: [place] [phone] Referral ID Status Reason Start Date Expiration Date V isits Requested Visits Authorized [id number] Closed Auto-Generate d Referral 07/26/2024 08/25/2025 1 1 Reason Comments Bladder Cancer Reason Comments CASE 9822 Follow Up Reason Comments Established Patient Reason Comments Surgical Followup Orders Reason Comments CASE 9822 Discussion Reason Comments CASE 9822 Update Reason Comments Bladder Cancer Hematuria 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 Introduction Reason Comments New Patient [...] COMPLETE Lakeisha Rivers, [address] [place] [address] Phone: tel: fax: [place] [address] Referral ID Status Reason Start Date Expiration Date V isits Requested Visits Authorized [id number] Closed Auto-Generate d Referral 09/05/2024 10/05/2025 [address] Specialty Diagnoses / Procedures Referred By Contac t Referred To Contact CT IMAGING Diagnoses Malignant neoplasm of urinary bladder, unspecified site (HCC) Other hydronephrosis Procedures CT ABD/PEL WO IVCON CT ABD & PELVIS W/O CONTRAST Stacy Gauthier MD [address] [place] [address] Phone: tel: fax: [place] [address] Referral ID Status Reason Start Date Expiration Date V isits Requested Visits Authorized [id number] Closed Auto-Generate d Referral 09/04/2024 09/20/2025 1 1 Reason Comments Opened In Error Reason Comments Chemotherapy Treatment Specialty Diagnoses / Procedures Referred By Contac t Referred To Contact Diagnoses Malignant neoplasm of urinary bladder, unspecified site (HCC) Lakeisha Rivers, DO [address] [place] [address] Phone: tel: fax: Hematology/Oncology [address] [place] [address] Phone: tel: fax: Referral ID Status Reason Start Date Expiration Date V isits Requested Visits Authorized [id number] Authorized 09/17/2024 12/16/2024 99 99 Reason Comments Radiotherapy On-treatment Visit Reason Comments Care Coordination CYCLE 1/DAY 1 POST T REATMENT CALL Reason Comments Non-Chemotherapy Treatment Reason Comments CADD Pump D/C Reason Comments Blood Draw (CVAD) Reason Comments PICC Line Reason Comments Established Patient Reason Comments Patient Education Discharge teaching-c ompleted radiation Care Teams (unrecognized sec tion and content) Private Branch Exchange Installer Relationship Specialty Start Date End Date Padmini Carrasco MD [address] [place], [place] [id number] PCP - General Family Practice 01/24/19 Private Branch Exchange Installer Relationship Specialty Start Date End Date Padmini Carrasco MD [address] [place], [place] [address] PCP - General Family Medicine 01/24/19 Private Branch Exchange Installer Relationship Specialty Start Date End Date Padmini Carrasco MD [address] [facility] [place] [address] PCP - General Family Medicine 01/24/19 Private Branch Exchange Installer Relationship Specialty Start Date End Date Padmini Carrasco MD [address] [facility] [address] PCP - General Family Medicine 01/24/19 Private Branch Exchange Installer Relationship Specialty Start Date End Date Padmini Carrasco MD [address] [facility], [place] [id number] PCP - General Family Medicine 01/24/19 Team Status: Active Member Role Status Dates Dr. Ezekiel Carrasco MD Family Provider Active Dr. Ezekiel Carrasco MD Primary Care Provider Activ e Team Status: Inactive Member Role Status Dates Dr. Ezekiel Carrasco MD Primary Care Provider, Refe rring Provider Active Tc Subramanian REMEDIAL TEACHER, REMEDIAL TEACHER-C Attending Provider Active Team Status: Active Member Role Status Dates Dr. Ezekiel Carrasco MD Primary Care Provider Activ e Dr. Nhan Garland MD Emergency Provider Active Dr. Beatris Banks DO Attending Provider Active Team Status: Inactive Member Role Status Dates Dr. Ezekiel Carracso MD Primary Care Provider, Attending Provider, Referring Provider Active Team Status: Inactive Member Role Status Dates Dr. Ezekiel Carrasco MD Primary Care Provider Activ e Dr. Raymond Asencio DO Attending Provider, Emergency P carrillo Active Team Status: Inactive Member Role Status Dates Dr. Ezekiel Carrasco MD Primary Care Provider Activ e Tc Subramanian REMEDIAL TEACHER, REMEDIAL TEACHER-C Attending Provider, Referring Pro vider Active Team [...] Provider, Refe rring Provider Active Carmina Tee REMEDIAL TEACHER, REMEDIAL TEACHER-C Attending Provider Active Team Status: Active Member Role Status Dates Dr. Ezekiel Carrasco MD Primary Care Provider Activ e Tc Subramanian REMEDIAL TEACHER, REMEDIAL TEACHER-C Attending Provider Active Team Status: Active Member [...] Primary Care Provider Activ e Tc Subramanian REMEDIAL TEACHER, REMEDIAL TEACHER-C Attending Provider, Referring Pro vider Active Team Status: Inactive Member Role Status Dates Dr. Ezekiel Carrasco MD Primary Care Provider Activ e Tonia Biedenharn PA, PA Attending Provider Active Tc Subramanian REMEDIAL TEACHER, REMEDIAL TEACHER-C Referring Provider Active Team Status: Active Member [...] Primary Care Provider Activ e Tc Subramanian REMEDIAL TEACHER, REMEDIAL TEACHER-C Attending Provider Active Team Status: Active Member Role Status Dates Dr. Ezekiel Carrasco MD Primary Care Provider Activ e Dr. Kwame Alex MD Attending Provider Active Tonia Biedenharn PA, PA Referring Provider Active Team Status: Active Member Role Status Dates Dr. Ezekiel Carrasco MD Primary Care Provider Activ e Carmina Tee REMEDIAL TEACHER, REMEDIAL TEACHER-C Referring Provider, Other Pr ovider Active Dr. Noe Suarez MD Attending Provider Active Team Status: Active Member Role Status Dates Dr. Ezekiel Carrasco MD Primary Care Provider Activ e Carmina Tee REMEDIAL TEACHER, REMEDIAL TEACHER-C Attending Provider, Referrin g Provider Active Team Status: Inactive Member Role Status Dates Dr. Ezekiel Carrasco MD Primary Care Provider Activ e Tonia Biedenharn PA, PA Attending Provider Active Team Status: Inactive Member Role Status Dates Dr. Ezekiel Carrasco MD Primary Care Provider Activ e Carmina Tee REMEDIAL TEACHER, REMEDIAL TEACHER-C Attending Provider, Referrin g Provider Active Team Status: Inactive Member Role Status Dates Dr. Ezekiel Carrasco MD Primary Care Provider, Refe rring Provider Active Isela Kwok PA, PA Attending Provider Active Team Status: Active Member Role Status Dates Dr. Ezekiel Carrasco MD Primary Care Provider Activ e Carmina Tee REMEDIAL TEACHER, REMEDIAL TEACHER-C Referring Provider, Other Pr ovider Active Dr. [...] Provider, Refe rring Provider Active Farheen Alexander REMEDIAL TEACHER, REMEDIAL TEACHER-C Attending Provider Active Team Status: Active Member Role Status Dates Dr. Ezekiel Carrasco MD Primary Care Provider Activ e Dr. Kwame Alex MD Attending Provider Active KALPANA Danielson Referring Provider Active Team Status: Inactive Member Role Status Dates Dr. Ezekiel Carrasco MD Primary Care Provider Activ e Farheen Alexander REMEDIAL TEACHER, REMEDIAL TEACHER-C Attending Provider, Referring P carrillo Active Team Status: Active Member Role Status Dates Dr. Ezekiel Carrasco MD Primary Care Provider Activ e Farheen Alexander REMEDIAL TEACHER, REMEDIAL TEACHER-C Attending Provider Active Team Status: Active Member [...] 2024 End: February 21, 2024 Carmina Tee REMEDIAL TEACHER, REMEDIAL TEACHER-C Attending Provider Active Start: February 21, 2024 End: February 21, 2024 Carmina Tee REMEDIAL TEACHER, REMEDIAL TEACHER-C Referring Provider Active Start: February 21, 2024 End: February 21, 2024 Team Status: Inactive Member Role Status Dates Dr. Padmini Carrasco MD Primary Care Provider Acti ve Start: March 23, 2024 End: March 23, 2024 Dr. Padmini Carrasco MD Referring Provider Active Start: March 23, 2024 End: March 23, 2024 Carmina Tee REMEDIAL TEACHER, REMEDIAL TEACHER-C Attending Provider Active Start: March 23, 2024 [...] Status: Inactive Member Role Status Dates Dr. Padmiin Carrasco MD Primary Care Provider Acti ve [...] July 09, 2024 End: July 09, 2024 Private Branch Exchange Installer Relationship Specialty Start Date End Date Padmini Carrasco MD [address] [facility] [place], [place] [id number] PCP - General Family Medicine 01/24/19 Jose J Mcclendon MD [address] [place] [address] [id number] Referring Urology 07/19/24 Private Branch Exchange Installer Relationship Specialty Start Date End Date Padmini Carrasco MD [address] [facility] [place], [place] [address] PCP - General Family Medicine 01/24/19 Jose J Mcclendon MD [address] [place] [address] [phone] Referring Urology 07/19/24 Private Branch Exchange Installer Relationship Specialty Start Date End Date Padmini Carrasco MD [address] [place], [place] [address]271 PCP - General Family Medicine 01/24/19 Jose J Mcclendon MD [address] [address] [place] [address] Referring Urology 07/19/24 Private Branch Exchange Installer Relationship Specialty Start Date End Date Padmini Carrasco MD [address] [place], [place] [address] PCP - General Family Medicine 01/24/19 Jose J Mcclendon MD [address] [place] [address] Referring Urology 07/19/24 Private Branch Exchange Installer Relationship Specialty Start Date End Date Padmini Carrasco MD [address] [place], [place] 726261 PCP - General Family Medicine 01/24/19 Jose J Mcclendon MD [address] [address] [place] [address] Referring Urology 07/19/24 Private Branch Exchange Installer Relationship Specialty Start Date End Date Padmini Carrasco MD [address] [place] [address] PCP - General Family Medicine 01/24/19 Jose J Mcclendon MD [address] [address] [place] [address] Referring Urology 07/19/24 Private Branch Exchange Installer Relationship Specialty Start Date End Date Padmini Carrasco MD [address] [place], [place] [address]111 PCP - General Family Medicine 01/24/19 Jose J Mcclendon MD [address] [place] [address] [place], [place] 522361 Referring Urology 07/19/24 Karen Post, RN Specialty Software Firmware Engineer Hematology/Oncology 08/06/24 Private Branch Exchange Installer Relationship Specialty Start Date End Date Padmini Carrasco MD [address] [place] [address] PCP - General Family Medicine 01/24/19 Jose J Mcclendon MD [address] [place] [address] [place] [address] Referring Urology 07/19/24 Karen Post, RN Specialty Software Firmware Engineer Hematology/Oncology 08/06/24 Private Branch Exchange Installer Relationship Specialty Start Date End Date Padmini Carrasco MD [address] [place] [address] PCP - General Family Medicine 01/24/19 Jose J Mcclendon MD [address] [place] [address] [place] [address] Referring Urology 07/19/24 Karen Post, RN Specialty Software Firmware Engineer Hematology/Oncology 08/06/24 Private Branch Exchange Installer Relationship Specialty Start Date End Date Padmini Carrasco MD [address] [place] [address] PCP - General Family Medicine 01/24/19 Jose J Mcclendon MD [address], [place] 114491 Referring Urology 07/19/24 Karen Post, ANGELA Specialty Software Firmware Engineer Hematology/Oncology 08/06/24 Private Branch Exchange Installer Relationship Specialty Start Date End Date Padmini Carrasco MD [address] [place] [address], [place] [id number] PCP - General Family Medicine 01/24/19 Jose J Mcclendon MD [address] [place] [address], [place] [address]01 Referring Urology 07/19/24 Karen Post RN Specialty Software Firmware Engineer Hematology/Oncology 08/06/24 Private Branch Exchange Installer Relationship Specialty Start Date End Date Padmini Carrasco MD [address] [place] [address], [place] [id number] PCP - General Family Medicine 01/24/19 Jose J Mcclendon MD [address] [place] [address], [place] 875821 Referring Urology 07/19/24 Karen Post, RN Specialty Software Firmware Engineer Hematology/Oncology 08/06/24 Team Status: Active Member Role/Relationship [...] 2024 End: August 30, 2024 Farheen Alexander REMEDIAL TEACHER, REMEDIAL TEACHER-C Attending Provider Active Start: August 30, 2024 End: August 30, 2024 Private Branch Exchange Installer Relationship Specialty Start Date End Date Padmini Carrasco MD [address] [facility] [place], [place] [address] PCP - General Family Medicine 01/24/19 Jose J Mcclendon MD [address] [place] [address] Referring Urology 07/19/24 Karen Post, ANGELA Specialty Software Firmware Engineer Hematology/Oncology 08/06/24 Stacy Gauthier MD [address] [place] [address] Physician Urology 09/05/24 Private Branch Exchange Installer Relationship Specialty Start Date End Date Padmini Carrasco MD [address] [facility] [place] [address] PCP - General Family Medicine 01/24/19 Jose J Mcclendon MD [address] [address] Referring Urology 07/19/24 Karen Post, RN Specialty Software Firmware Engineer Hematology/Oncology 08/06/24 Stacy Gauthier MD [address] [place] [address] Physician Urology 09/05/24 Private Branch Exchange Installer Relationship Specialty Start Date End Date Padmini Carrasco MD [address] [place], [place] 58[address]21 PCP - General Family Medicine 01/24/19 Jose J Mcclendon MD [address] [address] Referring Urology 07/19/24 Karen Post, ANGELA Specialty Software Firmware Engineer Hematology/Oncology 08/06/24 Stacy Gauthier MD [address] [place] [address] Physician Urology 09/05/24 Luigi Banks MD [address] [place] [address] Physician Radiation Oncology 09/06/24 Private Branch Exchange Installer Relationship Specialty Start Date End Date Padmini Carrasco MD [address] [place] [address] PCP - General Family Medicine 01/24/19 Jose J Mcclendon MD [address] [address] Referring Urology 07/19/24 Karen Post, ANGELA Specialty Software Firmware Engineer Hematology/Oncology 08/06/24 Stacy Gauthier MD [address] [place] [address] Physician Urology 09/05/24 Luigi Banks MD [address] [place] [address] Physician Radiation Oncology 09/06/24 Private Branch Exchange Installer Relationship Specialty Start Date End Date Padmini Carrasco MD [address] [place] [address] PCP - General Family Medicine 01/24/19 Jose J Mcclendon MD [address] [place] [address] Referring Urology 07/19/24 Karen Post, ANGELA Specialty Software Firmware Engineer Hematology/Oncology 08/06/24 Stacy Gauthier MD [address] [place] [address] Physician Urology 09/05/24 Luigi Banks MD [address] [place] [address] Physician Radiation Oncology 09/06/24 Private Branch Exchange Installer Relationship Specialty Start Date End Date Padmini Carrasco MD [address] [place] [address] PCP - General Family Medicine 01/24/19 Jose J Mcclendon MD [address] [address] Referring Urology 07/19/24 Karen Post RN Specialty Software Firmware Engineer Hematology/Oncology 08/06/24 Stacy Gauthier MD [address] [place] [address] Physician Urology 09/05/24 Luigi Banks MD [address] [place] [address] Physician Radiation Oncology 09/06/24 Private Branch Exchange Installer Relationship Specialty Start Date End Date Padmini Carrasco MD [address] [place], [place] [address] PCP - General Family Medicine 01/24/19 Jose J Mcclendon MD [address] [place] [address] [id number] Referring Urology 07/19/24 Karen Post RN Specialty Software Firmware Engineer Hematology/Oncology 08/06/24 Stacy Gauthier MD [address] [place] [address] Physician Urology 09/05/24 Luigi Banks MD [address] [place] [address] Physician Radiation Oncology 09/06/24 Matthew Gu RN Specialty Software Firmware Engineer Oncology 09/12/24 Lakeisha Rivers DO [address] [place] [address] Hematology/Oncology 09/12/24 Antoni Carmichael LISW [address] [place] [address] Hand Bander Hematology/Oncology 09/12/24 Private Branch Exchange Installer Relationship Specialty Start Date End Date Padmini Carrasco MD [address] [place] [address] PCP - General Family Medicine 01/24/19 Jose J Mcclendon MD [address] [address] [place] [address] Referring Urology 07/19/24 Karen Post, ANGELA Specialty Software Firmware Engineer Hematology/Oncology 08/06/24 Stacy Gauthier MD [address] [place] [address] Physician Urology 09/05/24 Luigi Banks MD [address] [place] [address] Physician Radiation Oncology 09/06/24 Matthew Gu RN Specialty Software Firmware Engineer Oncology 09/12/24 Lakeisha Rivers DO [address] [place] [address] Hematology/Oncology 09/12/24 Antoni Carmichael LISW [address] [place] [address] Hand Bander Hematology/Oncology 09/12/24 Private Branch Exchange Installer Relationship Specialty Start Date End Date Padmini Carrasco MD [address] [place] [address] PCP - General Family Medicine 01/24/19 Jose J Mcclendon MD [address] [address] [place] [address] Referring Urology 07/19/24 Karen Post, ANGELA Specialty Software Firmware Engineer Hematology/Oncology 08/06/24 Stacy Gauthier MD [address] [place] [address] Physician Urology 09/05/24 Luigi Banks MD [address] [address] Physician Radiation Oncology 09/06/24 Matthew Gu, RN Specialty Software Firmware Engineer Oncology 09/12/24 Lakeisha Rivers DO [address] [place] [address] Hematology/Oncology 09/12/24 Antoni Carmichael LISW [address] [place] [address] Hand Bander Hematology/Oncology 09/12/24 Private Branch Exchange Installer Relationship Specialty Start Date End Date Padmini Carrasco MD [address] [facility] [place] [place] [address] PCP - General Family Medicine 01/24/19 Jose J Mcclendon MD [address] [place] [address] Referring Urology 07/19/24 Karen Post RN Specialty Software Firmware Engineer Hematology/Oncology 08/06/24 Stacy Gauthier MD [address] [place] [address] Physician Urology 09/05/24 Luigi Banks MD [address] [place] [address] Physician Radiation Oncology 09/06/24 Matthew Gu, RN Specialty Software Firmware Engineer Oncology 09/12/24 Lakeisha Rivers DO [address] [place] [address] Hematology/Oncology 09/12/24 Antoni Carmichael LISW [address] [place] [address] Hand Bander Hematology/Oncology 09/12/24 Private Branch Exchange Installer Relationship Specialty Start Date End Date Padmini Carrasco MD [address] [place] [address] PCP - General Family Medicine 01/24/19 Jose J Mcclendon MD [address] [place] [address] [place] [address] Referring Urology 07/19/24 Karen Post, ANGELA Specialty Software Firmware Engineer Hematology/Oncology 08/06/24 Stacy Gauthier MD [address] [place] [address] Physician Urology 09/05/24 Luigi Banks MD [address] [place] [address] Physician Radiation Oncology 09/06/24 Matthew Gu RN Specialty Software Firmware Engineer Oncology 09/12/24 Lakeisha Rivers DO [address] [place] [address] Hematology/Oncology 09/12/24 Antoni Carmichael LISW [address] [place] [address] Hand Bander Hematology/Oncology 09/12/24 Private Branch Exchange Installer Relationship Specialty Start Date End Date Padmini Carrasco MD [address] [place] [address] PCP - General Family Medicine 01/24/19 Jose J Mcclendon MD [address] [address] [place] [address] Referring Urology 07/19/24 aKren Post, ANGELA Specialty Software Firmware Engineer Hematology/Oncology 08/06/24 Stacy Gauthier MD [address] [place] [address] Physician Urology 09/05/24 Luigi Banks MD [address] [place] [address] Physician Radiation Oncology 09/06/24 Matthew Gu RN Specialty Software Firmware Engineer Oncology 09/12/24 Lakeisha Rivers DO [address] [place] [address] Hematology/Oncology 09/12/24 Antoni Carmichael LISW [address] [place] [address] Hand Bander Hematology/Oncology 09/12/24 Private Branch Exchange Installer Relationship Specialty Start Date End Date Padmini Carrasco MD [address] [facility] [facility] [address] [place] [address] PCP - General Family Medicine 01/24/19 Jose J Mcclendon MD [address] [place] [address], [place] [address] Referring Urology 07/19/24 Karen Post, ANGELA Specialty Software Firmware Engineer Hematology/Oncology 08/06/24 Stacy Gauthier MD [address] [place] [address] Physician Urology 09/05/24 Luigi Banks MD [address] [place] [address] Physician Radiation Oncology 09/06/24 Matthew Gu RN Specialty Software Firmware Engineer Oncology 09/12/24 Lakeisha Rivers DO [address] [place] [address] Hematology/Oncology 09/12/24 Antoni Carmichael LISW [address] [place] [address] Hand Bander Hematology/Oncology 09/12/24 Private Branch Exchange Installer Relationship Specialty Start Date End Date Padmini Carrasco MD [address] [place] [address] PCP - General Family Medicine 01/24/19 Jose J Mcclendon MD [address] [place] [address] [place] [address] Referring Urology 07/19/24 Karen Post RN Specialty Software Firmware Engineer Hematology/Oncology 08/06/24 Stacy Gauthier MD [address] [place] [address] Physician Urology 09/05/24 Luigi Banks MD [address] [place] [address] Physician Radiation Oncology 09/06/24 Matthew Gu RN Specialty Software Firmware Engineer Oncology 09/12/24 Lakeisha Rivers DO [address] [place] [address] Hematology/Oncology 09/12/24 Antoni Carmichael LISW [address] [place] [address] Hand Bander Hematology/Oncology 09/12/24 Private Branch Exchange Installer Relationship Specialty Start Date End Date Padmini Carrasco MD [address] [place] [address] PCP - General Family Medicine 01/24/19 Jose J Mcclendon MD [address] [address] Referring Urology 07/19/24 Karen Post RN Specialty Software Firmware Engineer Hematology/Oncology 08/06/24 Stacy Gauthier MD [address] [place] [address] Physician Urology 09/05/24 Luigi Banks MD [address] [place] [address] Physician Radiation Oncology 09/06/24 Matthew Gu RN Specialty Software Firmware Engineer Oncology 09/12/24 Lakeisha Rivers DO [address] [place] [address] Hematology/Oncology 09/12/24 Antoni Carmichael LISW [address] [place] [address] Hand Bander Hematology/Oncology 09/12/24 Team Status: Inactive Member Role/Relationship [...] 2024 End: August 30, 2024 Farheen Alexander REMEDIAL TEACHER, REMEDIAL TEACHER-C Attending Provider Active Start: August 30, 2024 [...] September 21, 2024 End: September 21, 2024 Private Branch Exchange Installer Relationship Specialty Start Date End Date Padmini Carrasco MD [address] [place] [address] PCP - General Family Medicine 01/24/19 Jose J Mcclendon MD [address] [address] [place] [address] Referring Urology 07/19/24 Karen Post, ANGELA Specialty Software Firmware Engineer Hematology/Oncology 08/06/24 Stacy Gauthier MD [address] [place], [place] [id number] Physician Urology 09/05/24 Luigi Banks MD [address] [place] [address] Physician Radiation Oncology 09/06/24 Matthew Gu RN Specialty Software Firmware Engineer Oncology 09/12/24 Lakeisha Rivers DO [address] [place] [address] Hematology/Oncology 09/12/24 Antoni Carmichael LISW [address] [place] [address] Hand Bander Hematology/Oncology 09/12/24 Private Branch Exchange Installer Relationship Specialty Start Date End Date Padmini Carrasco MD [address] [facility] [place] [address] PCP - General Family Medicine 01/24/19 Jose J Mcclendon MD [address] [address] [place] [address] Referring Urology 07/19/24 Karen Post, ANGELA Specialty Software Firmware Engineer Hematology/Oncology 08/06/24 Stacy Gauthier MD [address] [place] [address] Physician Urology 09/05/24 Luigi Banks MD [address] [facility] [place] [address] Physician Radiation Oncology 09/06/24 Matthew Gu RN Specialty Software Firmware Engineer Oncology 09/12/24 Lakeisha Rivers DO [address] [place] [address] Hematology/Oncology 09/12/24 Antoni Carmichael LISW [address] [place] [address] Hand Bander Hematology/Oncology 09/12/24 Private Branch Exchange Installer Relationship Specialty Start Date End Date Padmini Carrasco MD [address] [place] [address] PCP - General Family Medicine 01/24/19 Jose J Mcclendon MD [address] [place] [address], [place] [address] Referring Urology 07/19/24 Karen Post RN Specialty Software Firmware Engineer Hematology/Oncology 08/06/24 Stacy Gauthier MD [address] [place] [address] Physician Urology 09/05/24 Luigi Banks MD [address] [place] [address] Physician Radiation Oncology 09/06/24 Matthew Gu RN Specialty Software Firmware Engineer Oncology 09/12/24 Lakeisha Rivers DO [address] [place] [address] Hematology/Oncology 09/12/24 Antoni Carmichael LISW [address] [place] [address] Hand Bander Hematology/Oncology 09/12/24 Private Branch Exchange Installer Relationship Specialty Start Date End Date Padmini Carrasco MD [address] [place] [address] PCP - General Family Medicine 01/24/19 Jose J Mcclendon MD [address] [place] [address] [place] [address] Referring Urology 07/19/24 Karen Post RN Specialty Software Firmware Engineer Hematology/Oncology 08/06/24 Stacy Gauthier MD [address] [place] [address] Physician Urology 09/05/24 Luigi Banks MD [address] [place] [address] Physician Radiation Oncology 09/06/24 Matthew Gu RN Specialty Software Firmware Engineer Oncology 09/12/24 Lakeisha Rivers DO [address] [place] [address] Hematology/Oncology 09/12/24 Antoni Carmichael LISW [address] [place] [address] Hand Bander Hematology/Oncology 09/12/24 Private Branch Exchange Installer Relationship Specialty Start Date End Date Padmini Carrasco MD [address] [place] [address] PCP - General Family Medicine 01/24/19 Jose J Mcclendon MD [address] [address] [place] [address] Referring Urology 07/19/24 Karen Post, RN Specialty Software Firmware Engineer Hematology/Oncology 08/06/24 Stacy Gauthier MD [address] [place] [address] Physician Urology 09/05/24 Luigi Banks MD [address] [place] [address] Physician Radiation Oncology 09/06/24 Matthew Gu RN Specialty Software Firmware Engineer Oncology 09/12/24 Lakeisha Rivers DO [address] [place] [address] Hematology/Oncology 09/12/24 Antoni Carmichael LISW [address] [place] [address] Hand Bander Hematology/Oncology 09/12/24 Private Branch Exchange Installer Relationship Specialty Start Date End Date Padmini Carrasco MD [address] [place] [address] PCP - General Family Medicine 01/24/19 Jose J Mcclendon MD [address] [address] [place] [address] Referring Urology 07/19/24 Karen Post, ANGELA Specialty Software Firmware Engineer Hematology/Oncology 08/06/24 Stacy Gauthier MD [address] [place] [address] Physician Urology 09/05/24 Luigi Banks MD [address] [place] [address] Physician Radiation Oncology 09/06/24 Matthew Gu, RN Specialty Software Firmware Engineer Oncology 09/12/24 Lakeisha Rivers DO [address] [place] [address] Hematology/Oncology 09/12/24 Antoni Carmichael LISW [address] [place] [address] Hand Bander Hematology/Oncology 09/12/24 Private Branch Exchange Installer Relationship Specialty Start Date End Date Padmini Carrasco MD [address] [place] [address] PCP - General Family Medicine 01/24/19 Jose J Mcclendon MD [address] [place] [address], [place] [address] Referring Urology 07/19/24 Karen Post, ANGELA Specialty Software Firmware Engineer Hematology/Oncology 08/06/24 Stacy Gauthier MD [address] [place] [address] Physician Urology 09/05/24 Luigi Banks MD [address] [place] [address] Physician Radiation Oncology 09/06/24 Matthew Gu, RN Specialty Software Firmware Engineer Oncology 09/12/24 Lakeisha Rivers DO [address] [place] [address] Hematology/Oncology 09/12/24 Antoni Carmichael LISW [address] [place] [address] Hand Bander Hematology/Oncology 09/12/24 Private Branch Exchange Installer Relationship Specialty Start Date End Date Padmini Carrasco MD [address] [place] [address] PCP - General Family Medicine 01/24/19 Jose J Mcclendon MD [address] [place], [place] [address] Referring Urology 07/19/24 Karen Post, ANGELA Specialty Software Firmware Engineer Hematology/Oncology 08/06/24 Stacy Gauthier MD [address] [place] [address] Physician Urology 09/05/24 Luigi Banks MD [address] [place] [address] Physician Radiation Oncology 09/06/24 Matthew Gu RN Specialty Software Firmware Engineer Oncology 09/12/24 Lakeisha Rivers DO [address] [place], [place] [address] Hematology/Oncology 09/12/24 Antoni Carmichael LISW [address] [place] [address] Hand Bander Hematology/Oncology 09/12/24 Goals (unrecognized section and content) [...] section and content) DATE CREATED AUTHOR 09/14/2024 [facility] DATE CREATED AUTHOR AUTHOR'S ORGANIZ ATION 09/30/2024 [facility] DATE CREATED AUTHOR AUTHOR'S ORGANIZ ATION 11/01/2024 [facility] FOR RECORDS PERTAINING TO PATIENTS WHO [...] BE BASED ON THE PRIMARY CLINICAL RECORDS. [employer] [facility]. provides no warranty or guarantee of the accuracy or completeness of information in this document.
== END 2024-11-07 23:10 | disposition short-term general hospital (02) | DRG 377 ==
LOC: ED 19:29 → SDC 19:29 → AC 19:30 → ICU 20:36 → SDC 11-08 09:30 → ICU 11-08 09:30
PROVIDERS: Anesthesiology; Admitting Provider Family Medicine; Emergency Provider Surgery; PCP Family Medicine; Referring Provider Family Medicine; Visit Provider Internal Medicine Gastroenterology
PROC: 0DJD8ZZ Inspection of Lower Intestinal Tract, Via Natural or Artificial Opening Endoscopic (ICD-10-PCS; CPT 45378; principal; 2024-11-07 20:00)
DX: K26.4 Chronic or unspecified duodenal ulcer with hemorrhage (principal); R57.8 Other shock; E87.21 Acute metabolic acidosis; N13.6 Pyonephrosis; D62 Acute posthemorrhagic anemia; N12 Tubulo-interstitial nephritis, not specified as acute or chronic; C67.9 Malignant neoplasm of bladder, unspecified; E78.00 Pure hypercholesterolemia, unspecified; E86.1 Hypovolemia; E87.5 Hyperkalemia; Z66 Do not resuscitate; N18.30 Chronic kidney disease, stage 3 unspecified; J43.9 Emphysema, unspecified; I72.3 Aneurysm of iliac artery; I12.9 Hypertensive chronic kidney disease with stage 1 through stage 4 chronic kidney disease, or unspecified chronic kidney disease; Z95.2 Presence of prosthetic heart valve; I71.43 Infrarenal abdominal aortic aneurysm, without rupture; I25.10 Atherosclerotic heart disease of native coronary artery without angina pectoris; F17.210 Nicotine dependence, cigarettes, uncomplicated; I35.0 Nonrheumatic aortic (valve) stenosis; N34.2 Other urethritis; Z95.1 Presence of aortocoronary bypass graft; Z98.0 Intestinal bypass and anastomosis status; Z79.82 Long term (current) use of aspirin; Z79.899 Other long term (current) drug therapy
CPT/HCPCS: 36592; 71045; 74174; 80053; 81001; 82274; 83605; 83690; 83735; 84100; 84484; 85014; 85018; 85025; 85610; 85730; 86850; 86900; 86901; 87086; 87088; 93005; 94640; 99284; C1889; P9016; Q9967; A4216

== ENCOUNTER → 2024-11-15 | Outpatient (CLI) | payer MEDICARE, SELFPAY ==
[2024-11-15 18:50] LABS: Hematocrit 31.1 % (40-54); Hemoglobin 9.8 g/dL (13.0-16.5); Immature Granulocytes Count 0.030 X10^3/uL (0.0-0.0); Immature Reticulocyte Fraction 21.50 % (3.00-15.90); Mean Corp Hgb Conc 31.5 g/dL (32-36); Mean Corpuscular Volume 96.9 fL (80-94); Mean Platelet Vol. 8.9 fl (6.2-12.0); NRBC Flagged by Analyzer 0 % (0-5); Platelet Count 266 K/mm3 (150-450); RBC Distribution Width CV 15.8 % (11.6-14.6); RBC Distribution Width SD 55.6 fl (35.1-43.9); Red Blood Count 3.21 M/mm3 (4.6-6.2); Reticulocyte Count 3.05 % (0.5-1.5); White Blood Count 6.7 K/mm3 (4.4-11.0)
[2024-11-15 18:57] LABS: AST(SGOT) 17 U/L (<=37); Alanine Aminotransfer ALT/SGPT 10 U/L (<=46); Albumin, Serum 3.8 g/dL (3.4-4.8); Alkaline Phosphatase 64 U/L (40-129); Anion Gap 10 (5-15); BUN 26 mg/dL (4-19); BUN/Creat Ratio 15.4 RATIO (10-20); Calcium,Total 8.8 mg/dL (7.6-11.0); Carbon Dioxide 25.2 mmol/L (21.0-32.0); Chloride 102 mmol/L (98-108); Ferritin 128 ng/mL (37-417); Globulin 2.7 g/dL (2.2-4.2); Glucose 100 mg/dL (70-99); Iron 47 ug/dL (65-175); Potassium 4.7 mmol/L (3.3-5.1)
== END | disposition home or self-care (01) ==
LOC: MFPLAB 14:24
PROVIDERS: PCP Family Medicine; Visit Provider Family Medicine
DX: R30.0 Dysuria (principal); K92.2 Gastrointestinal hemorrhage, unspecified; D64.9 Anemia, unspecified
CPT/HCPCS: 36415; 80053; 82728; 83540; 85025; 85045; 87086

== ENCOUNTER 2024-11-18 01:47 | Inpatient (IN) | payer MEDICARE, SELFPAY ==
[2024-11-18] VITALS (37 sets, daily range): BP systolic 84–136; BP diastolic 51–84; PULSE 65–86; RESP 15–25; TEMP 35.5–36.8; O2SAT 95–100; BMI 23.1; BMI 22.4
[2024-11-18] MEDS: 0.9% Normal Saline (1000mL) 1,000 ML 999 ML IV (02:00)
--- NOTE | 2024-11-18 02:03 | CT_ITS ---
PROCEDURE: CTA ABD/PELVIS W/WO CONTRAST 11/18/2024 REASON FOR EXAM: GI BLEED TECHNIQUE: Procedure Code: [id number] Modality: CT Procedure: CTA ABD/PELVIS W/WO CONTRAST Multiplanar Sagittal and Coronal images were obtained. CONTRAST: Isovue 370 VOLUME: 100 mL One or more dose reduction techniques were used (e.g., Automated exposure control, adjustment of the mA and/or kV according to patient size, use of iterative reconstruction technique). RADIATION DOSE SUMMARY: CTDlvol: 14.73 mGy DLP: 702 mGycm COMPARISON: 11/07/2024. FINDINGS: LUNG BASES: Clear. 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 HEPATOBILIARY: No significant abnormality. Multiple small calcified granulomas scattered throughout the liver and spleen. No biliary ductal dilatation. GENITOURINARY: Marked circumferential thickening of the urinary bladder, with pericystic inflammatory fat stranding. Similar mild left hydroureteronephrosis. Left urothelial enhancement compatible with ureteritis/pyelitis. Symmetric nephrograms without evidence for pyelonephritis. Nonenlarged prostate. GI TRACT: Diffuse thickening of the stomach suggestive of gastritis. Acute hemorrhagic products are noted in the gastric lumen. No evidence of obstruction. Normal appendix. Mild wall thickening/fat stranding along the proximal duodenum, may represent mild duodenitis. Mild wall thickening of the distal rectosigmoid colon, and fluid throughout the colon suggesting colitis with nonspecific diarrheal illness. No intraluminal hyperdense material or active arterial contrast extravasation on the early arterial or delayed phase images to indicate active gastrointestinal hemorrhage. PERITONEUM/RETROPERITONEUM: No ascites or free air. No suspicious lymph node enlargement. Multiple shotty subcentimeter periaortic lymph nodes are nonspecific. MUSCULOSKELETAL: No acute abnormality. Multilevel degenerative changes of the spine. CT/CTA Abd/Pelvis W/WO Contrast IMPRESSION: No CT evidence for active gastrointestinal hemorrhage. Diffuse thickening of the stomach, probably gastritis. Acute hemorrhagic produ cts in the gastric lumen. Mild wall thickening and inflammatory changes involving the proximal duodenum, and distal rectosigmoid colon suggestive of enterocolitis. Nonspecific diarrheal illness with fluid in the colon. Marked wall thickening of the bladder with surrounding inflammatory fat strandi ng, may be infectious/inflammatory or related to known neoplasm. Possibly treatment related change. Similar mild left hydroureteronephrosis. Evidence of left ureteritis/pyelitis. Stable appearance of irregular diffuse fusiform aneurysmal dilatation of the in frarenal abdominal aorta and bilateral common iliac arteries, with eccentric noncalcified plaque/mural thrombus. Reading Location[facility]
[2024-11-18 02:17] LABS: Hematocrit 19.5 % (40-54); Immature Granulocytes Count 0.090 X10^3/uL (0.0-0.0); Mean Corp Hgb Conc 30.8 g/dL (32-36); Mean Corpuscular Volume 99.5 fL (80-94); Mean Platelet Vol. 9.0 fl (6.2-12.0); NRBC Flagged by Analyzer 0 % (0-5); Platelet Count 239 K/mm3 (150-450); RBC Distribution Width CV 16.4 % (11.6-14.6); RBC Distribution Width SD 59.5 fl (35.1-43.9); Red Blood Count 1.96 M/mm3 (4.6-6.2); White Blood Count 11.2 K/mm3 (4.4-11.0)
[2024-11-18 02:19] LABS: Hemoglobin 6.0 g/dL (13.0-16.5)
[2024-11-18 02:26] LABS: Prothrombin Time (Protime)PT. 13.8 SECONDS (11.7-14.9)
[2024-11-18 02:27] LABS: Partial Thromboplast Time 23.8 Seconds (24.1-36.2)
[2024-11-18 02:34] LABS: Anion Gap 13 (5-15); BUN 65 mg/dL (4-19); BUN/Creat Ratio 34.2 RATIO (10-20); Calcium,Total 8.4 mg/dL (7.6-11.0); Carbon Dioxide 21.7 mmol/L (21.0-32.0); Chloride 104 mmol/L (98-108); Estimated Creatinine Clearance 30.94 ml/min (50-250); Glucose 182 mg/dL (70-99); Potassium 5.3 mmol/L (3.3-5.1)
[2024-11-18] MEDS: Pantoprazole Sodium 80 MG in 0.9% Normal Saline (50mL Bag) 15 ML 420 MG IV BOLUS (02:35)
--- NOTE | 2024-11-18 03:00 | RAD_ITS ---
PROCEDURE: CHEST 1 VIEW (PORTABLE) 11/18/2024 REASON FOR EXAM: DYSPNEA TECHNIQUE: Frontal view of the chest. COMPARISON: 11/07/2024. FINDINGS: Unremarkable median sternotomy wires. Unchanged emphysema. There is no demonstrated pleural abnormality. Normal heart and pericardium. Normal mediastinum and daphne. Normal visualized pulmonary arteries. Normal visualized aortic arch and descending thoracic aorta. Normal visualized thoracic spine. Normal visualized ribs, clavicles, and shoulders. There is no demonstrated abnormality of the visualized soft tissue structures of the upper abdomen. RAD/Chest 1 View (Portable) IMPRESSION: No evidence for acute abnormality. Reading Location[facility]
[2024-11-18] MEDS: Pantoprazole Sodium 80 MG in 0.9% Normal Saline (100mL Bag) 80 ML 10 MG CONT INF ×3 (03:06→23:21)
--- NOTE | 2024-11-18 03:54 | ED.RN ---
This RN was unable to end the transfusion for the trauma blood in the TAR. This RN notified charge nurse and labview programmer Sherif Kaplan. Sherif attempted to change the status to allow for this RN to end time the transfusion. The trauma blood ended at this time and the next unit began transfusing at this time.
[2024-11-18 04:14] LABS: Mucous, Urine 0 SEEN /hpf (<or=2+); Red Blood Cells-Urine 0 SEEN /hpf (0-5); Squamous Epithelial Cells - UA 0 SEEN /hpf (0-5)
[2024-11-18 04:16] LABS: Color, Urine Yellow (Yellow); Glucose, Dipstick Normal (Normal); Ketone-Dipstick Negative (Negative); Leukocyte Esterase-Dipstick 25 /ul (Negative); Nitrite-Dipstick Positive (Negative); Occult Blood-Urine 25 /ul (Negative); Protein-Dipstick 100 mg/dl (Negative); Specific Gravity, Urine 1.010 (1.002-1.030)
[2024-11-18 04:23] LABS: Urine Bilirubin Dipstick 1 mg/dL (Negative)
--- NOTE | 2024-11-18 05:06 | ED.RN ---
Per Dr. Turpin and managing editor at [facility], rate increased at this time.
--- NOTE | 2024-11-18 05:39 | EDS_ITS ---
HPI History of Present Illness Chief Complaint: GI Bleed Informant: patient and family Narrative Narrative: Patient is a 74-year-old male with past medical history of hypertension hyperlipidemia previous aortic valve replacement as well as abdominal aortic aneurysm. He was seen at our hospital on November 07 secondary to an acute GI bleed. Workup at that time revealed the cause of the GI bleed was a actively bleeding duodenal ulcer. He had the ulcer cauterized when he underwent EGD and colonoscopy and then was transferred to [facility] as there was concern he would need further intervention that was not available to our hospital. Patient and family state that at [facility] they simply watched him for 3 days and there was no return of bleeding so he was discharged home. Patient reports last night/this morning he awoke and noted pain in his upper abdomen. Following this he had a bout of emesis which he states was dark in color. He states he then passed a large dark bowel movement. He states this was similar to his recent hospital stay and therefore EMS was called and he was brought in for evaluation. 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 Intention tremor Carotid stenosis, bilateral Hyperlipidemia Nonrheumatic aortic (valve) stenosis Essential hypertension Tobacco dependence Bilateral inguinal hernia Left carotid bruit Abdominal aortic aneurysm (AAA) Anemia Subcutaneous mass of back PUD (peptic ulcer disease) Cough Arthritis Home Medications ?Medication ?Instructions ?Recorded ?Last Taken ?Type aspirin 81 mg tablet,delayed 81 mg PO DAILY heart heal th 03/02/22 01/12/24 History release rosuvastatin 5 mg tablet (Crestor) 5 mg PO DAILY uzma sterol 03/02/22 03/02/22 History amlodipine 5 mg tablet 5 mg PO DAILY #30 tabs 02/28 Unknown Rx cholecalciferol (vitamin D3) 25 25 mcg PO DAILY Unknown History mcg (1,000 unit) capsule metoprolol tartrate 25 mg tablet 12.5 mg (1/2 x 25 mg) PO BID #90 03/22/24 06/27/24 05:30 Rx tabs acetaminophen 500 mg capsule 1,000 mg PO Q6H PRN pain 06/13/24 Unknown History fluticasone fur. 200 mcg-umeclid 1 inh inhalation RUFINA Y PRN SOB 06/13/24 Unknown History 62.5 mcg-vilant 25 mcg inhalat.powder (Trelegy Ellipta) Allergy/AdvReac Type Severity Reaction Status Date / Time No Known Allergies Allergy Verified 11/07/24 15:31 Family History Sister Asthma Mother Arthritis Diabetes Brother Cancer Unsure what kind- just a lump on his neck Surgical History Neoplasm of bladder Hx of inguinal hernia repair S/P inguinal hernia repair History of cardiac catheterization S/P AAA repair 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) History of left heart catheterization (11/27/18) History of aortic valve replacement (02/12/19) Social History (Updated 11/07/24 @ 20:[address] Suzanne Medley MD) household members: none Smoking Status: Former smoker quit status: has quit before alcohol intake: never substance use type: does not use caffeine: Yes Type: coffee Number of servings: 3 what type of physical activity do you participate in: other frequency: 3-4 times per week seatbelt use: always ROS ROS ED Constitutional Constitutional ED: Reports chills and other Details: Positive fatigue ; Denies fever(s) Eyes Eyes: Denies blurry vision or change in vision ENT ENT ED: Denies sore throat Cardiovascular Cardiovascular: Denies chest pain, palpitations or racing heartbeat Respiratory/Chest Respiratory/Chest: Denies cough or dyspnea Gastrointestinal Gastrointestinal: Reports abdominal pain, melena, nausea and vomiting; Denies diarrhea Genitourinary Genitourinary ED: Reports dysuria Musculoskeletal Musculoskeletal: Denies back pain Integumentary Denies rash Neurologic Neurologic: Reports weakness; Denies headache(s) Hematologic/Lymphatic Hematologic/Lymphatic: Denies easy bleeding or easy bruising EXAM Physical Exam Const Vital Signs: 11/18/24 01:48 11/18/24 01:54 11/18/24 02:23 Temperature 95.9 F L 95.9 F L 95.9 F L Temperature Source Axillary Axillary Oral Pulse Rate 73 74 72 Respiratory Rate 25 H 18 18 Blood Pressure 84/55 L 84/55 L 101/63 Blood Pressure Mean 64 64 75 Blood Pressure Source Monitor Blood Pressure Position Supine Blood Pressure Location Right Arm Pulse Ox 99 Oxygen Delivery Method Room Air Room Air Oxygen Flow Rate (L/min) 11/18/24 02:26 11/18/24 02:38 11/18/24 03:00 Temperature 96.2 F L 96.0 F L Temperature Source Oral Oral Pulse Rate 73 74 78 Respiratory Rate 18 18 18 Blood Pressure 101/63 101/57 L 101/51 L Blood Pressure Mean 75 71 67 Blood Pressure Source Monitor Blood Pressure Position Supine Blood Pressure Location Right Arm Pulse Ox 100 98 100 Oxygen Delivery Method Room Air Room Air Room Air Oxygen Flow Rate (L/min) 11/18/24 03:38 11/18/24 03:54 11/18/24 04:00 Temperature 96.0 F L 96.0 F L 96.0 F L Temperature Source Oral Oral Oral Pulse Rate 70 71 70 Respiratory Rate 16 18 18 Blood Pressure 135/58 H 98/57 L 114/58 L Blood Pressure Mean 83 70 76 Blood Pressure Source Monitor Monitor Blood Pressure Position Semi-Fowlers Semi-Fowlers Blood Pressure Location Right Arm Right Arm Pulse Ox 99 98 98 Oxygen Delivery Method Room Air Room Air Room Air Oxygen Flow Rate (L/min) 11/18/24 04:04 11/18/24 04:09 11/18/24 04:19 Temperature 96.1 F L 96.0 F L 96.0 F L Temperature Source Oral Oral Oral Pulse Rate 86 81 75 Respiratory Rate 18 18 18 Blood Pressure 129/84 H 129/84 H 116/63 Blood Pressure Mean 99 99 80 Blood Pressure Source Monitor Blood Pressure Position Semi-Fowlers Blood Pressure Location Right Arm Pulse Ox 98 95 98 Oxygen Delivery Method Room Air Room Air Room Air Oxygen Flow Rate (L/min) 11/18/24 04:34 11/18/24 04:49 11/18/24 05:00 Temperature 96.0 F L 98.2 F Temperature Source Oral Oral Pulse Rate 68 86 74 Respiratory Rate 18 18 18 Blood Pressure 90/58 L 130/61 H 100/66 Blood Pressure Mean 68 84 77 Blood Pressure Source Blood Pressure Position Blood Pressure Location Pulse Ox 99 96 98 Oxygen Delivery Method Room Air Room Air Room Air Oxygen Flow Rate (L/min) 11/18/24 05:06 11/18/24 05:09 11/18/24 05:47 Temperature 98.2 F 98.0 F 98.0 F Temperature Source Oral Oral Oral Pulse Rate 69 71 68 Respiratory Rate 18 18 18 Blood Pressure 100/66 99/62 121/63 H Blood Pressure Mean 77 74 82 Blood Pressure Source Monitor Monitor Monitor Blood Pressure Position Semi-Fowlers Semi-Fowlers Semi-Fowlers Blood Pressure Location Right Arm Right Arm Right Arm Pulse Ox 98 98 97 Oxygen Delivery Method Room Air Room Air Room Air Oxygen Flow Rate (L/min) 11/18/24 05:53 11/18/24 06:00 11/18/24 06:08 Temperature 98.0 F 97.7 F L Temperature Source Oral Oral Pulse Rate 67 68 70 Respiratory Rate 18 18 18 Blood Pressure 116/64 119/64 132/67 H Blood Pressure Mean 81 82 88 Blood Pressure Source Monitor Monitor Blood Pressure Position Semi-Fowlers Semi-Fowlers Blood Pressure Location Right Arm Right Arm Pulse Ox 96 97 98 Oxygen Delivery Method Room Air Room Air Room Air Oxygen Flow Rate (L/min) 11/18/24 06:15 11/18/24 07:12 Temperature 97.9 F 97.5 F L Temperature Source Oral Oral Pulse Rate 68 67 Respiratory Rate 18 15 Blood Pressure 127/67 H 120/61 Blood Pressure Mean 87 80 Blood Pressure Source Monitor Monitor Blood Pressure Position Semi-Fowlers Semi-Fowlers Blood Pressure Location Right Arm Right Arm Pulse Ox 99 98 Oxygen Delivery Method Room Air Nasal Cannula Oxygen Flow Rate (L/min) 2 Positive well nourished and well developed Constitutional Narrative: Patient is ill-appearing General Appearance ED: well developed and pallor HEENT Reports dry mucous membranes HEENT Narrative: Normocephalic atraumatic No tongue or lip swelling no oral lesions no airway edema or compromise No dried blood or active bleeding noted in the posterior pharynx Mucous membranes are dry and tacky There is mild cyanosis noted to the lips Mouth ED: Yes dry mucous membranes Mouth: dry mucous membranes Eyes PERRL and EOMs intact bilaterally Eyes Narrative: Positive subconjunctival pallor bilaterally General Eye ED: Yes pale conjunctiva; Negative for scleral icterus Neck supple Neck Narrative: No crepitance palpated of the anterior neck No pain with external manipulation of the thyroid cartilage Resp Resp Narrative: Patient is tachypneic and breath sounds are diminished throughout with faint expiratory wheeze and rhonchi consistent with history of COPD Cardio regular rate and regular rhythm GI non-distended and no masses GI Narrative: Abdomen is soft and nondistended with normal active bowel sounds. There is mild pain with palpation in the midepigastric region. However no voluntary guarding or rigidity. No pulsatile mass. No peritoneal signs. No increased tympany. Auscultation: normoactive bowel sounds Palpation: soft Narrative: Rectal tone is normal. No external hemorrhoids or anal fissure noted. No internal masses palpated. Stool is melanotic in color and Hemoccult positive. Extremity normal to inspection Neuro oriented x3 and CN's II-XII intact bilaterally Sensorium / Orientation: alert Psych mental status grossly normal Skin Skin Narrative: Patient's skin is pale and cool with delayed capillary refill. General Skin Exam: pallor MDM MDM MDM Narrative Medical decision making narrative: Patient arrived to the ER hypotensive with significant pallor but was awake and alert. He reported abdominal discomfort with 1 bout of vomiting as well as a large bowel movement both were melanotic in color. His previous admis cecilio/workup was reviewed. With the EGD documenting significant gastritis causing a duodenal ulcer with active bleeding this is most likely the cause of his symptoms this morning. Secondary to this he was given a Protonix bolus and started on Protonix drip. He is hypotensive upon arrival and therefore 1 L of normal saline was started and he was given 1 unit of trauma blood while laboratory studies and imaging were obtained. The patient's hemoglobin has dropped from 9.8 November 15 to 6.0 today consistent with acute blood loss anemia. His BUN has increased from 26 on November 15 to 65 today also consistent with upper GI bleed. The patient's urine sample did show changes concerning for infection and therefore was sent for culture and he was started on Rocephin. The patient's lactic acid value is elevated but I feel this is related to acute blood loss anemia and ischemia and not due to infection and therefore I do not feel the need for blood cultures. The CTA of the of the abdomen and pelvis revealed acute hemorrhagic contents within the gastric lumen consistent with his symptoms as well as history of duodenal ulcer however there is no findings of active GI bleeding at the time of the CT scan. The case was discussed with pipe fitter Dr. Floyd who saw the patient at his previous hospital visit and performed his EGD and colonoscopy. He states that with the recurrent nature of his bleeding that he may require a surgical intervention to resolve the ulcer and that type of procedure would not be performed at our institution and therefore he recommends transfer. As the patient was just admitted to [facility] I did contact them once again. The case was discussed with the ICU interpreter translator Dr. Laws. He agrees that the patient needs to come to [facility] for continued evaluation and treatment of his recurrent GI bleed. He states however that as the patient's blood pressure is improving with the treatment provided that he would like us to complete our treatment course of 3 units of blood prior to his decision about whether the patient will require ICU placement or not. He states that if the patient completes his 3 units of blood and his blood pressure remained stable and he does not have reoccurrence of vomiting or melena but he believes he can go to the medical floor. However if after receiving his transfusion his blood pressure begins to drop or he has recurrent symptoms then he will need ICU placement. At this time the patient's treatment is still in the process of being completed and therefore he will be signed out to the day physician Dr. Stinson. History & Record Review Discussion w/independent historian: Patient and Family Additional record(s) reviewed:: Prior inpatient record, Prior ED visit and Prior labs Lab Data Attestation: I reviewed the patient's lab results. Labs: Laboratory Results - last 24 hr 11/18/24 11/18/24 11/18/24 01:30 02:14 02:14 WBC 11.2 H RBC 1.96 L Hgb 6.0 L* Hct 19.5 L MCV 99.5 H MCH 30.6 MCHC 30.8 L RDW Std Deviation 59.5 H RDW Coeff of Manjit 16.4 H Plt Count 239 MPV 9.0 Immature Gran % (Auto) 0.800 Neut % (Auto) 73.2 H Lymph % (Auto) 13.9 L [place] % (Auto) 10.9 H Eos % (Auto) 0.8 Baso % (Auto) 0.4 Absolute Neuts (auto) 8.2 H Absolute Lymphs (auto) 1.56 Nucleated RBC % 0 PT 13.8 INR 1.0 APTT 23.8 L Sodium 138 Potassium 5.3 H Chloride 104 Carbon Dioxide 21.7 Anion Gap 13 BUN 65 H Creatinine 1.89 H Estim Creat Clear Calc 30.94 L Est GFR (MDRD) Non-Af 37 L BUN/Creatinine Ratio 34.2 H Glucose 182 H Lactic Acid 3.7 H* Calcium 8.4 Urine Color Urine Clarity Urine pH Ur Specific [place] Urine Protein Urine Glucose (UA) Urine Ketones Urine Occult Blood Urine Nitrite Urine Bilirubin Urine Urobilinogen Ur Leukocyte Esterase Urine RBC Urine WBC Ur Squamous Epith Cells Urine Bacteria Hyaline Casts Urine Mucus Blood Type A POSITIVE Antibody Screen NEGATIVE Crossmatch See Detail See Detail 11/18/24 11/18/24 04:10 05:52 WBC RBC Hgb Hct MCV MCH MCHC RDW Std Deviation RDW Coeff of Manjit Plt Count MPV Immature Gran % (Auto) Neut % (Auto) Lymph % (Auto) [place] % (Auto) Eos % (Auto) Baso % (Auto) Absolute Neuts (auto) Absolute Lymphs (auto) Nucleated RBC % PT INR APTT Sodium Potassium Chloride Carbon Dioxide Anion Gap BUN Creatinine Estim Creat Clear Calc Est GFR (MDRD) Non-Af BUN/Creatinine Ratio Glucose Lactic Acid 1.1 Calcium Urine Color Yellow Urine Clarity Clear Urine pH 6.0 Ur Specific [place] 1.010 Urine Protein 100 H Urine Glucose (UA) Normal Urine Ketones Negative Urine Occult Blood 25 H Urine Nitrite Positive H Urine Bilirubin 1 H Urine Urobilinogen 1 H Ur Leukocyte Esterase 25 H Urine RBC 0 SEEN Urine WBC 10-25 SEEN Ur Squamous Epith Cells 0 SEEN Urine Bacteria 1+ Hyaline Casts 0-5 SEEN Urine Mucus 0 SEEN Blood Type Antibody Screen Crossmatch Radiography Diagnostic Testing: Clinical Impression(s) from Imaging Studies Abdomen/Pelvis CTA 11/18/24 02:03 IMPRESSION: No CT evidence for active gastrointestinal hemorrhage. Diffuse thickening of the stomach, probably gastritis. Acute hemorrhagic products in the gastric lumen. Mild wall thickening and inflammatory changes involving the proximal duodenum, and distal rectosigmoid colon suggestive of enterocolitis. Nonspecific diarrheal illness with fluid in the colon. Marked wall thickening of the bladder with surrounding inflammatory fat stranding, may be infectious/inflammatory or related to known neoplasm. Possibly treatment related change. Similar mild left hydroureteronephrosis. Evidence of left ureteritis/pyelitis. Stable appearance of irregular diffuse fusiform aneurysmal dilatation of the infrarenal abdominal aorta and bilateral common iliac arteries, with eccentric noncalcified plaque/mural thrombus. Reading Location: [id number] Chest X-Ray 11/18/24 03:00 IMPRESSION: No evidence for acute abnormality. Reading Location: [id number] Chest x-ray as interpreted by the emergency medicine physician reveals no acute infiltrate pneumothorax pleural effusion or free air Management Discussion w/another healthcare provider: Brick Pointer (Case was discussed with pipe fitter Dr. Floyd as well as ICU interpreter translator Dr. Laws) Critical Care Time Critical Care Time: Yes Critical care time (excluding procedures): Discussing w/Patient &/or Family/Director Targeted Marketing, Discussing w/Consultants, Arranging Admission or Transfer, Performing Direct Patient Care at Bedside and - (Please note critical care time of 53 minutes) Discharge Plan Triage Chief Complaint: GI Bleed ED Provider: Jeffery Turpin Dx/Rx/DC Orders Clinical Impression: Acute upper gastrointestinal hemorrhage, Acute blood loss anemia, Hypovolemic shock, Duodenal ulcer, Chronic kidney disease, COPD (chronic obstructive pulmonary disease), Abdominal aortic aneurysm (AAA), UTI (urinary tract infection) Prescriptions: No Action amlodipine 5 mg tablet 5 mg PO DAILY Qty: 30 11RF aspirin 81 mg tablet,delayed release (DR/EC) 81 mg PO DAILY Patient Comments: STOP PER DR. MCCLENDON PRIOR TO PROCEDURE rosuvastatin [Crestor] 5 mg tablet 5 mg PO DAILY acetaminophen 500 mg capsule 1,000 mg PO Q6H PRN (Reason: pain) Trelegy Ellipta 200-62.5-25 mcg blister with device 1 inh inhalation DAILY PRN (Reason: SOB) cholecalciferol (vitamin D3) 25 mcg (1,000 unit) capsule 25 mcg PO DAILY metoprolol tartrate 25 mg tablet 12.5 mg PO BID Qty: 90 3RF Primary Care Provider: Andrés Carrasco Referrals: Andrés Carrasco MD [Primary Care Provider, Family Practice] Print Language: Greek Disposition Disposition: Acute Care Hospital Discharge Location: [facility]
--- NOTE | 2024-11-18 06:16 | ED.RN ---
Rate increased per Dr. Turpin verbal order.
[2024-11-18 06:22] LABS: Reflex Lactate? Y
--- NOTE | 2024-11-18 12:37 | ED.RN ---
pts expresses concern in regard to a place to stay while pt is admitted to [facility] Main [place]. [place] from notified and to see if there is a place that the patient could stay.
--- NOTE | 2024-11-18 14:20 | ED.RN ---
this rn in to change bag of protonix. this rn empties urinal and asks if pt needs assistance- pt declines
--- NOTE | 2024-11-18 15:29 | PCA ---
THIS US CALLED [facility] TO GET UPDATE ON BED TO DETERMINE ADMISSION TO [facility]- THEY SAID THERE ARE NO BEDS AVAILABLE TODAY AND HE HAS PEOPLE AHEAD OF HIM ON THE WAITLIST, AND THERE IS NOT A LOT OF MOVEMENT HAPPENING THE REST OF THE DAY DUE TO IT BEING A TUESDAY
--- NOTE | 2024-11-18 15:29 | ED.RN ---
Dr. Stinson notified this RN Dr. Valdivia is refusing to admit patient at this time due to being transferred. RN paged Dr. Valdivia requesting him to call the ED. RN asks Dr. Valdivia why we are not admitting patient. Dr. Valdivia explains he needs a higher level of care. Last time he was here he went south pretty quick and transferred him out from the floors. RN states I understand but we are at the 6 hour cady for transfer delay and [facility] states they do not have a bed available for him tonight. Dr. Valdivia states how many patients are in the ED? RN states we have [address] Valdivia states if we are not hurting for bed down there we can keep him down there. If at 6 pm, he still does not have a bed, we will admit him to the floor. This RN agrees to plan of care. Dr. Stinson notified
[2024-11-18 16:59] LABS: Hematocrit 26.3 % (40-54); Hemoglobin 8.7 g/dL (13.0-16.5); Immature Granulocytes Count 0.050 X10^3/uL (0.0-0.0); Mean Corp Hgb Conc 33.1 g/dL (32-36); Mean Corpuscular Volume 93.6 fL (80-94); Mean Platelet Vol. 8.8 fl (6.2-12.0); NRBC Flagged by Analyzer 0 % (0-5); Platelet Count 134 K/mm3 (150-450); RBC Distribution Width CV 16.1 % (11.6-14.6); RBC Distribution Width SD 53.8 fl (35.1-43.9); Red Blood Count 2.81 M/mm3 (4.6-6.2); White Blood Count 8.2 K/mm3 (4.4-11.0)
--- NOTE | 2024-11-18 17:28 | HP.PCM.HOS_ITS ---
[facility] Date of Admission: 11/18/24 Date of Service: 11/18/24 Chief Complaint: Recurrent upper GI bleed [facility] Narrative ABELARDO ROBERTS, is a 74 M who presented to [facility] ED on 11/18/2024 with recurrent upper GI bleed. Patient was initially hospitalized here on 11/07 for severe acute upper GI bleed. Urgent EGD showed red blood in the entire stomach and a spurting duodenal ulcer with a visible vessel that was injected and treated with heater probe. Patient required 2 units of blood at that time. Given the significance of the bleed, patient was transferred to [facility] for further evaluation. Per patient and family report, he was observed there for about 3 days without any recurrence of bleeding and was then able to be discharged home. Patient awoke early on the morning of 11/18 with abdominal pain and had a bout of emesis that was dark in color. He then passed a large dark bowel movement, so he came to the ED for further evaluation. On arrival his hemoglobin was 6.0, down from 9.8 on 11/15. CT abdomen pelvis showed diffuse thickening of the stomach from probable gastritis with acute hemorrhagic products in the gastric lumen, along with mild wall thickening inflammatory changes involving the proximal duodenum. Blood transfusion was initiated and ED physician discussed case with Dr. Floyd, who noted that given the recurrent nature of his bleeding, he may require a surgical invention for definitive management of the ulcer and that type of procedure would not be performed at her hospital. Thus, transfer to [facility] was initiated and patient was accepted for transfer. He was given 3 units of blood here with repeat hemoglobin 8.7, and he had no further episodes of emesis or dark stools. Transfer has been delayed so hospitalist was contacted for admission. I saw the patient at bedside in the ED. Patient was sitting back comfortably in bed, conversing normally, in no acute distress. He denied any acute abdominal pain or discomfort currently. Denied any other acute concerns at this time. Will be admitted for further management. [facility] Medical History Bladder cancer Wears dentures Wears glasses Bruising Easy bruising High cholesterol Smoker Shortness of breath on exertion History of echocardiogram Cardiology follow-up encounter Stage 3b chronic kidney disease (CKD) Thrombocytopenia Chronic kidney insufficiency Pleural effusion Secondary pulmonary arterial hypertension Atherosclerotic heart disease of [place] coronary artery without angina pectoris Intention tremor Carotid stenosis, bilateral Hyperlipidemia Nonrheumatic aortic (valve) stenosis Essential hypertension Tobacco dependence Bilateral inguinal hernia Left carotid bruit Abdominal aortic aneurysm (AAA) Anemia Subcutaneous mass of back PUD (peptic ulcer disease) Cough Arthritis Home Medications ?Medication ?Instructions ?Recorded ?Last Taken ?Type aspirin 81 mg tablet,delayed 81 mg PO DAILY heart heal th 03/02/22 01/12/24 History release rosuvastatin 5 mg tablet (Crestor) 5 mg PO DAILY uzma sterol 03/02/22 03/02/22 History amlodipine 5 mg tablet 5 mg PO DAILY #30 tabs 02/28 Unknown Rx cholecalciferol (vitamin D3) 25 25 mcg PO DAILY Unknown History mcg (1,000 unit) capsule metoprolol tartrate 25 mg tablet 12.5 mg (1/2 x 25 mg) PO BID #90 03/22/24 06/27/24 05:30 Rx tabs acetaminophen 500 mg capsule 1,000 mg PO Q6H PRN pain 06/13/24 Unknown History fluticasone fur. 200 mcg-umeclid 1 inh inhalation RUFINA Y PRN SOB 06/13/24 Unknown History 62.5 mcg-vilant 25 mcg inhalat.powder (Trelegy Ellipta) Allergy/AdvReac Type Severity Reaction Status Date / Time No Known Allergies Allergy Verified 11/07/24 15:31 Family History Sister Asthma Mother Arthritis Diabetes Brother Cancer Unsure what kind- just a lump on his neck Surgical History Neoplasm of bladder Hx of inguinal hernia repair S/P inguinal hernia repair History of cardiac catheterization S/P AAA repair 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) History of left heart catheterization (11/27/18) History of aortic valve replacement (02/12/19) Social History (Updated 11/07/24 @ 20:[address] Suzanne Medley MD) household members: none Smoking Status: Former smoker quit status: has quit before alcohol intake: never substance use type: does not use caffeine: Yes Type: coffee Number of servings: 3 what type of physical activity do you participate in: other frequency: 3-4 times per week seatbelt use: always ROS Constitutional Constitutional: Denies chills, fatigue, fever(s) or weakness Eyes Eyes: Denies change in vision Cardiovascular Cardiovascular: Denies chest pain Respiratory/Chest Respiratory/Chest: Denies shortness of breath at rest Gastrointestinal Gastrointestinal: Denies abdominal pain, nausea or vomiting Musculoskeletal Musculoskeletal: Denies arthralgias or myalgias Neurologic Neurologic: Denies dizziness, focal weakness or headache(s) Vital Signs Vital Signs Vital Signs: 11/18/24 01:48 11/18/24 01:54 11/18/24 02:23 Temperature 95.9 F L 95.9 F L 95.9 F L Temperature Source Axillary Axillary Oral Pulse Rate 73 74 72 Respiratory Rate 25 H 18 18 Blood Pressure 84/55 L 84/55 L 101/63 Blood Pressure Mean 64 64 75 Blood Pressure Source Monitor Blood Pressure Position Supine Blood Pressure Location Right Arm Pulse Ox 99 Oxygen Delivery Method Room Air Room Air Oxygen Flow Rate (L/min) 11/18/24 02:26 11/18/24 02:38 11/18/24 03:00 Temperature 96.2 F L 96.0 F L Temperature Source Oral Oral Pulse Rate 73 74 78 Respiratory Rate 18 18 18 Blood Pressure 101/63 101/57 L 101/51 L Blood Pressure Mean 75 71 67 Blood Pressure Source Monitor Blood Pressure Position Supine Blood Pressure Location Right Arm Pulse Ox 100 98 100 Oxygen Delivery Method Room Air Room Air Room Air Oxygen Flow Rate (L/min) 11/18/24 03:38 11/18/24 03:54 11/18/24 04:00 Temperature 96.0 F L 96.0 F L 96.0 F L Temperature Source Oral Oral Oral Pulse Rate 70 71 70 Respiratory Rate 16 18 18 Blood Pressure 135/58 H 98/57 L 114/58 L Blood Pressure Mean 83 70 76 Blood Pressure Source Monitor Monitor Blood Pressure Position Semi-Fowlers Semi-Fowlers Blood Pressure Location Right Arm Right Arm Pulse Ox 99 98 98 Oxygen Delivery Method Room Air Room Air Room Air Oxygen Flow Rate (L/min) 11/18/24 04:04 11/18/24 04:09 11/18/24 04:19 Temperature 96.1 F L 96.0 F L 96.0 F L Temperature Source Oral Oral Oral Pulse Rate 86 81 75 Respiratory Rate 18 18 18 Blood Pressure 129/84 H 129/84 H 116/63 Blood Pressure Mean 99 99 80 Blood Pressure Source Monitor Blood Pressure Position Semi-Fowlers Blood Pressure Location Right Arm Pulse Ox 98 95 98 Oxygen Delivery Method Room Air Room Air Room Air Oxygen Flow Rate (L/min) 11/18/24 04:34 11/18/24 04:49 11/18/24 05:00 Temperature 96.0 F L 98.2 F Temperature Source Oral Oral Pulse Rate 68 86 74 Respiratory Rate 18 18 18 Blood Pressure 90/58 L 130/61 H 100/66 Blood Pressure Mean 68 84 77 Blood Pressure Source Blood Pressure Position Blood Pressure Location Pulse Ox 99 96 98 Oxygen Delivery Method Room Air Room Air Room Air Oxygen Flow Rate (L/min) 11/18/24 05:06 11/18/24 05:09 11/18/24 05:47 Temperature 98.2 F 98.0 F 98.0 F Temperature Source Oral Oral Oral Pulse Rate 69 71 68 Respiratory Rate 18 18 18 Blood Pressure 100/66 99/62 121/63 H Blood Pressure Mean 77 74 82 Blood Pressure Source Monitor Monitor Monitor Blood Pressure Position Semi-Fowlers Semi-Fowlers Semi-Fowlers Blood Pressure Location Right Arm Right Arm Right Arm Pulse Ox 98 98 97 Oxygen Delivery Method Room Air Room Air Room Air Oxygen Flow Rate (L/min) 11/18/24 05:53 11/18/24 06:00 11/18/24 06:08 Temperature 98.0 F 97.7 F L Temperature Source Oral Oral Pulse Rate 67 68 70 Respiratory Rate 18 18 18 Blood Pressure 116/64 119/64 132/67 H Blood Pressure Mean 81 82 88 Blood Pressure Source Monitor Monitor Blood Pressure Position Semi-Fowlers Semi-Fowlers Blood Pressure Location Right Arm Right Arm Pulse Ox 96 97 98 Oxygen Delivery Method Room Air Room Air Room Air Oxygen Flow Rate (L/min) 11/18/24 06:15 11/18/24 07:12 11/18/24 07:39 Temperature 97.9 F 97.5 F L Temperature Source Oral Oral Pulse Rate 68 67 68 Respiratory Rate 18 15 17 Blood Pressure 127/67 H 120/61 136/67 H Blood Pressure Mean 87 80 90 Blood Pressure Source Monitor Monitor Blood Pressure Position Semi-Fowlers Semi-Fowlers Blood Pressure Location Right Arm Right Arm Pulse Ox 99 98 99 Oxygen Delivery Method Room Air Nasal Cannula Room Air Oxygen Flow Rate (L/min) 2 11/18/24 09:00 11/18/24 10:00 11/18/24 11:00 Temperature Temperature Source Pulse Rate 65 72 66 Respiratory Rate 19 H 20 H 15 Blood Pressure 120/68 116/61 112/58 L Blood Pressure Mean 85 79 76 Blood Pressure Source Blood Pressure Position Blood Pressure Location Pulse Ox 97 97 96 Oxygen Delivery Method Room Air Room Air Room Air Oxygen Flow Rate (L/min) 11/18/24 12:00 11/18/24 13:00 11/18/24 14:00 Temperature Temperature Source Pulse Rate 73 80 84 Respiratory Rate 18 18 18 Blood Pressure 125/61 H 109/83 H 106/65 Blood Pressure Mean 82 91 78 Blood Pressure Source Blood Pressure Position Blood Pressure Location Pulse Ox 98 98 97 Oxygen Delivery Method Room Air Oxygen Flow Rate (L/min) 11/18/24 15:00 11/18/24 16:00 11/18/24 17:00 Temperature Temperature Source Pulse Rate 69 71 74 Respiratory Rate 19 H 18 21 H Blood Pressure 103/64 115/53 L Blood Pressure Mean 77 73 Blood Pressure Source Blood Pressure Position Blood Pressure Location Pulse Ox 97 99 100 Oxygen Delivery Method Nasal Cannula Oxygen Flow Rate (L/min) Weight Weight: 65.2 kg Body Mass Index (BMI) 23.1 Physical Exam Const alert, oriented x3, no apparent distress and average body habitus Constitutional Narrative: Elderly male, mildly fatigued appearing but otherwise sitting back comfortably in bed, conversing normally, in no acute distress. General Appearance: cooperative and comfortable HEENT normocephalic, head/scalp atraumatic, hearing grossly normal bilaterally, nasal mucous membranes and turbinates normal and moist oral mucous membranes Eyes PERRL, EOMs intact bilaterally and conjunctivae normal Neck full ROM Chest inspection of chest normal Resp normal respiratory effort, normal air movement, no use of accessory muscles and clear to auscultation bilaterally Cardio regular rate, regular rhythm, no murmurs and peripheral pulses 2+ throughout GI normal to inspection, nondistended, normoactive bowel sounds, soft to palpation, non-tender and non-distended Back/Spine normal ROM Extremity normal to inspection, full ROM and no pedal edema Skin no rashes or lesions noted Psych mental status grossly normal Results Lab / Micro Data 11/18/24 16:50 11/18/24 16:50 Labs: Laboratory Results - last 24 hr 11/18/24 01:30: WBC 11.2 H, RBC 1.96 L, Hgb 6.0 L*, Hct 19.5 L, MCV 99.5 H, MCH 30.6, MCHC 30.8 L, RDW Std Deviation 59.5 H, RDW Coeff of Manjit 16.4 H, Plt Count 239, MPV 9.0, Immature Gran % (Auto) 0.800, Neut % (Auto) 73.2 H, Lymph % (Auto) 13.9 L, [place] % (Auto) 10.9 H, Eos % (Auto) 0.8, Baso % (Auto) 0.4, Absolute Neuts (auto) 8.2 H, Absolute Lymphs (auto) 1.56, Nucleated RBC % 0, PT 13.8, INR 1.0, APTT 23.8 L, Sodium 138, Potassium 5.3 H, Chloride 104, Carbon Dioxide 21.7, Anion Gap 13, BUN 65 H, Creatinine 1.89 H, Estim Creat Clear Calc 30.94 L, Est GFR (MDRD) Non-Af 37 L, BUN/Creatinine Ratio 34.2 H, Glucose 182 H, Calcium 8.4 11/18/24 02:14: Lactic Acid 3.7 H*, Blood Type A POSITIVE, Antibody Screen NEGATIVE, Crossmatch See Detail 11/18/24 02:14: Crossmatch See Detail 11/18/24 04:10: Urine Color Yellow, Urine Clarity Clear, Urine pH 6.0, Ur Specific [place] 1.010, Urine Protein 100 H, Urine Glucose (UA) Normal, Urine Ketones Negative, Urine Occult Blood 25 H, Urine Nitrite Positive H, Urine Bilirubin 1 H, Urine Urobilinogen 1 H, Ur Leukocyte Esterase 25 H, Urine RBC 0 SEEN, Urine WBC 10-25 SEEN, Ur Squamous Epith Cells 0 SEEN, Urine Bacteria 1+, Hyaline Casts 0-5 SEEN, Urine Mucus 0 SEEN 11/18/24 05:52: Lactic Acid 1.1 11/18/24 11:17: Lactic Acid < 1.0 11/18/24 16:50: WBC 8.2, RBC 2.81 L, Hgb 8.7 L, Hct 26.3 L, MCV 93.6 D, MCH 31.0, MCHC 33.1 D, RDW Std Deviation 53.8 H, RDW Coeff of Manjit 16.1 H, Plt Count 134 L, MPV 8.8, Immature Gran % (Auto) 0.600, Neut % (Auto) 77.4 H, Lymph % (Auto) 11.4 L, [place] % (Auto) 9.4, Eos % (Auto) 0.7, Baso % (Auto) 0.5, Absolute Neuts (auto) 6.3, Absolute Lymphs (auto) 0.93, Nucleated RBC % 0 Micro: Microbiology 11/18/24 02:10 Stool Stool Occult Blood (ASIF) - Final Occult Blood Positive Imaging Radiology Impression Abdomen/Pelvis CTA 11/18/24 02:03 IMPRESSION: No CT evidence for active gastrointestinal hemorrhage. Diffuse thickening of the stomach, probably gastritis. Acute hemorrhagic products in the gastric lumen. Mild wall thickening and inflammatory changes involving the proximal duodenum, and distal rectosigmoid colon suggestive of enterocolitis. Nonspecific diarrheal illness with fluid in the colon. Marked wall thickening of the bladder with surrounding inflammatory fat stranding, may be infectious/inflammatory or related to known neoplasm. Possibly treatment related change. Similar mild left hydroureteronephrosis. Evidence of left ureteritis/pyelitis. Stable appearance of irregular diffuse fusiform aneurysmal dilatation of the infrarenal abdominal aorta and bilateral common iliac arteries, with eccentric noncalcified plaque/mural thrombus. Reading [facility]-Ray 11/18/24 03:00 IMPRESSION: No evidence for acute abnormality. Reading [facility] Assessment & Plan Assessment/Plan (1) GI bleed: (2) Acute blood loss anemia: PLAN: Plan Patient is a 74-year-old male who presented to [facility] ED on 11/18/2024 with a recurrent upper GI bleed. 1. Recurrent upper GI bleed due to peptic ulcer disease with acute blood loss anemia ? Admit under inpatient status to PCU. See HPI for further details on recent history. In short, presented here on 11/07 with acute severe upper GI bleed with hemorrhagic shock due to acute blood loss anemia. Urgent EGD showed red blood in the entire stomach and a spurting duodenal ulcer with a visible vessel that was injected and treated with heater probe. He was then transferred to [facility] for further management. No recurrence of bleed there and he was discharged home 3 days later. Presented on morning of 11/18 with an episode of coffee-ground emesis followed by a large dark stool. Hemoglobin 6.0 in the ED, down from 9.8 on 11/15. Lactate 3.7 and BP borderline low presumed due to blood loss. CTA abdomen pelvis diffuse thickening of the stomach from probable gastritis with acute hemorrhagic products in the gastric lumen, along with mild wall thickening inflammatory changes involving the proximal duodenum. Started on Protonix drip and given 3 units packed blood cells with repeat hemoglobin 8.7. Has had no further episodes of emesis or dark stools. ED physician discussed case with Dr. Floyd who recommended transfer back to [facility] as patient may need definitive surgical management for his recurrent upper GI bleed. Will continue PPI drip for now. Follow-up a.m. CBC. Will keep n.p.o. with sips and chips for now. Will transfer to [facility] once bed is available. 2. Recent history of bladder cancer s/p TUBR on active chemotherapy and radiation therapy ? Follows with Dr. Winston and Dr. Rivers. Had bladder tumor resected in June of this year. Last chemotherapy was on 10/19 and last session of radiation therapy was on 10/22. No inpatient needs, continue close outpatient follow-up. 3. Hypertension, hyperlipidemia, history of CABG, history of bioprosthetic AVR, history of AAA repair ? Follows with [place] [facility], last office visit in August. History of CABG x 1 and bioprosthetic AVR in 2019, as well as AAA repair in 2021. Hypotensive to the 80s systolic on arrival to the ED due to upper GI bleed as above. BP improved to the 100s to 110s systolic after blood transfusion. Will hold home aspirin, amlodipine, and Lopressor. Okay to continue home statin. 4. CKD stage IIIb ? Creatinine 1.89 on arrival to the ED, baseline 1.6-1.7. Creatinine improved to 1.60 after blood transfusion. Follow-up a.m. BMP and monitor urine output. 5. COPD ? Stable on room air at rest, not in acute exacerbation. Continue home long- acting inhaler. 6. History of tobacco abuse ? Encouraged continued cessation. DVT prophylaxis: SCDs CODE STATUS: DNR CCA, DNI Expected disposition: Transfer to [facility] Total clinical time spent by myself addressing the patient's medical issues, reviewing all the data, and collaborating with patient's care team: 76 minutes. Charges/Coding Visit Charges Inpatient E&M: 19165 Init Hosp L3
[2024-11-18 17:32] LABS: Anion Gap 8 (5-15); BUN 62 mg/dL (4-19); BUN/Creat Ratio 38.9 RATIO (10-20); Calcium,Total 8.0 mg/dL (7.6-11.0); Carbon Dioxide 22.1 mmol/L (21.0-32.0); Chloride 109 mmol/L (98-108); Estimated Creatinine Clearance 36.55 ml/min (50-250); Glucose 112 mg/dL (70-99); Potassium 4.9 mmol/L (3.3-5.1)
--- NOTE | 2024-11-18 17:37 | PCM.HOSP.N ---
Hospitalist Note Patient was evaluated in the Emergency Department at [facility] on 11/17. At the time of evaluation, transfer to a tertiary hospital was felt to be in the patient's best interest due to recurrent severe upper GI bleed from duodenal ulcer with possible need for advanced surgical intervention. Attempts were made by the Emergency Department and/or the Hospitalist team to get patient to the appropriate level of care. Although the pt is accepted for transfer to [facility], there are no staffed beds currently available. Given the need for ongoing medical care, patient will be admitted to [facility] on 11/18, and care will be provided here until [facility] has an available staffed bed. Pt and/or family are aware of the transfer, the reasoning behind the need for transfer, and that until a staffed bed becomes available, we will provide evidence-based care to the best of our abilities, with the limitations of care here being fully addressed.
[2024-11-18] MEDS: Budesonide Respules 0.5 MG/2 ML AMPUL.NEB. INHALATION (20:27)
[2024-11-19] VITALS (25 sets, daily range): BP systolic 90–132; BP diastolic 48–68; PULSE 60–102; RESP 12–20; TEMP 36.2–37.1; O2SAT 94–100; BMI 22.4
[2024-11-19 05:48] LABS: Hematocrit 21.9 % (40-54); Hemoglobin 7.1 g/dL (13.0-16.5); Mean Corp Hgb Conc 32.4 g/dL (32-36); Mean Corpuscular Volume 93.6 fL (80-94); Mean Platelet Vol. 9.0 fl (6.2-12.0); Platelet Count 117 K/mm3 (150-450); RBC Distribution Width CV 16.0 % (11.6-14.6); RBC Distribution Width SD 53.4 fl (35.1-43.9); Red Blood Count 2.34 M/mm3 (4.6-6.2); White Blood Count 6.0 K/mm3 (4.4-11.0)
[2024-11-19 06:15] LABS: Anion Gap 8 (5-15); BUN 63 mg/dL (4-19); BUN/Creat Ratio 39.7 RATIO (10-20); Calcium,Total 8.0 mg/dL (7.6-11.0); Carbon Dioxide 21.7 mmol/L (21.0-32.0); Chloride 110 mmol/L (98-108); Estimated Creatinine Clearance 36.32 ml/min (50-250); Glucose 111 mg/dL (70-99); Potassium 4.8 mmol/L (3.3-5.1)
[2024-11-19] MEDS: Budesonide Respules 0.5 MG/2 ML AMPUL.NEB. INHALATION ×2 (06:53→20:54)
[2024-11-19] MEDS: Cholecalciferol (VIT D3) 25 MCG TABLET (1,000 UNITS) PO (08:23)
--- NOTE | 2024-11-19 08:23 | PCA ---
CALLED [facility] TO CHECK ON BED STATUS - PER PHONE CALL AT THIS TIME [facility] IS FULL MOST LIKELY NO BED TODAY, IT MAY BE A FEW DAYS.
--- NOTE | 2024-11-19 09:10 | PCM.PRE.AN2 ---
ASA Classification* ASA Classification ASA Classification: 3 Assessment & Plan Anesthesia* Anesthesia Assessment Anesthesia Assessment: Discussed sedation and/or anesthesia options, risks, benefits, and alternatives with patient/parents/legal guardian/POA. Questions invited. The patient/parents/legal guardian/POA seems to understand and agrees to proceed with anesthesia plan. Reviewed the physical assessment, medical history, allergy history and patient home medications list prior to surgery/procedure/anesthetic and documented any changes. Performed airway and anesthesia risk assessments. Anesthesia Type Anesthesia Type: MAC Anesthesia Focused Assessment* Temperature: 97.8 F Pulse Rate: 75 Blood Pressure: 121/57 Respiratory Rate: 12 Pulse Ox: 96 Oxygen Flow Rate (L/min): 3 Airway Assessment Mouth opens: >3 cm Mallampati Score: II Labs Anesthesia Preop lab: CBC WBC, (4.4-11.0) 6.0 K/mm3 Today, 05:13 RBC, (4.6-6.2) 2.34 M/mm3 L Today, 05:13 Hgb, (13.0-16.5) 7.1 g/dL L Today, 05:13 Hct, (40-54) 21.9 % L Today, 05:13 Plt Count, (150-450) 117 K/mm3 L Today, 05:13 CHEMISTRY Potassium, (3.3-5.1) 4.8 mmol/L Today, 05:13 Sodium, (133-145) 139 mmol/L Today, 05:13 Magnesium, (1.5-2.2) 2.1 mg/dL 11/07/24, 17:57 Phosphorus, (2.7-4.5) 4.5 mg/dL 11/07/24, 17:57 BUN, (4-19) 63 mg/dL H Today, 05:13 Creatinine, (0.70-1.20) 1.59 mg/dL H Today, 05:13 Glucose, (70-99) 111 mg/dL H Today, 05:13 TSH, (0.300-4.200) 3.680 uIU/mL 05/10/24, 15:16 COAG PT, (11.7-14.9) 13.8 SECONDS 11/18/24, 01:30 Pre-Assessment Diagnosis/Proposed Procedure Planned Operative Procedure(s): EGD Anesthesia History Anesthesia History - client resource specialist: Anesthesia History - client resource specialist Hx Hospitalization No 06/15/24 08:41 Any Problems With Anesthesia No 06/15/24 08:41 Cholinesterase deficiency No 06/15/24 08:41 You/Your Family Experience No 06/15/24 08:41 fever (hyperthermia) with Relationship Recent Exposure to Contagious No 06/27/24 06:57 Disease Does patient have nerve No 06/15/24 08:41 stimulator Patient instructed to have device shut off --Does patient have Pacemaker No 11/19/24 08:59 or ICD? When Was Last Pacemaker Check QUESTION #4 FULL TEXT: You/Your Family Experience fever (hyperthermia) with Anesthesia Last Oral Intake Last Oral intake: Last Oral Intake NPO since 00:00 11/19/24 08:59 Meds taken in AM with sips of water? Meds patient instructed to take am of surgery PONV PONV - client resource specialist: PONV - client resource specialist Female HX of Motion Sickness HX of N/V After Surgery Non-Smoker Duration of Surgery greater than 60 minutes Number of Risk Factors PONV Score Height & Weight Height & Weight: Anesthesia: Height & Weight Height 5 ft 6 in 11/19/24 08:59 Weight: 63 kg 11/19/24 08:59 Body Mass Index (BMI) 22.4 11/19/24 08:59 Respiratory Assessment Respiratory Assessment - client resource specialist: Respiratory Tract Infection Hx - client resource specialist Hx Respiratory Tract Infection No 06/15/24 08:41 STOP Sleep Apnea STOP Sleep Apnea - client resource specialist: STOP Sleep Apnea - client resource specialist Hx Hypertension Yes 11/18/24 18:22 Hx Sleep Apnea No 11/18/24 18:22 CPAP BIPAP Do you snore loudly (louder No 11/18/24 18:22 than talking or can be heard Do you often feel tired/ No 11/18/24 18:22 fatigued/ sleepy during daytime? Has anyone observed you stop No 11/18/24 18:22 breathing during sleep? STOP Results Negative 11/18/24 18:22 QUESTION #5 FULL TEXT : Do you snore loudly (louder than talking or can be heard through closed doors)? 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 Specify any problems Hx of Preganancy in last 3 N/A 11/18/24 18:22 Months Nurse Filling Out Transfusion NBILANCIN 11/18/24 18:22 & Questions: Date: 11/18/24 11/18/24 18:22 Time: 18:11/18/24 18:22 Patient unable to answer at this time (ie. confused, unrespo /Reproduction History /Reproductive History - client resource specialist: /Reproductive Hx- client resource specialist Hx Now Gestational Age (in weeks): EDC: Hx Hx Para Hx Section SAB Active Medications Active Medications: Current Medications Generic Name Dose Route Start Last Admin Trade Name Freq PRN Reason Stop Dose Admin Acetaminophen 650 mg 11/18/24 18:29 Acetaminophen 325 Mg Tablet PO Q6H PRN PRN Pain 1-10 Or Fever>100.7 Albuterol/Ipratropium 3 ml 11/18/24 18:45 11/19/24 06:50 Ipratropium/Albuterol Sulfate 3 Ml Ampul.Neb INHALATION 3 ml Q6HWA.RT YARY Administration Atorvastatin Calcium 10 mg 11/18/24 22:00 11/18/24 22:01 Atorvastatin Calcium 10 Mg Tablet PO 10 mg QHS YARY Administration Budesonide 0.5 mg 11/18/24 18:45 11/19/24 06:53 Budesonide Respules 0.5 Mg/2 Ml Ampul.Neb. INHALATION 0.5 mg Q12H.RT YARY Administration Cholecalciferol 25 mcg 11/19/24 10:00 11/19/24 08:23 Cholecalciferol (Vit D3) 25 Mcg Tablet (1,000 Units) PO 25 mcg DAILY YARY Administration Pantoprazole Sodium 80 mg/ 100 mls @ 10 mls/hr 11/18/24 02:07 11/18/24 23:21 Sodium Chloride CONT INF 10 mls/hr Q10H YARY Administration Sodium Chloride 250 mls @ 15 mls/hr 11/18/24 18:28 IV .[id number] PRN Saline Flush Sodium Chloride 250 mls @ 15 mls/hr 11/18/24 18:28 IV .[id number] PRN Additional IVPB Infusion Lactated Ringer's 1,000 mls @ 15 mls/hr 11/19/24 09:00 IV .Q48H YARY Melatonin 3 mg 11/18/24 18:29 Melatonin 3 Mg Tablet PO QHS PRN PRN INSOMNIA Ondansetron HCl 4 mg 11/18/24 18:29 Ondansetron 4 Mg/2 Ml Vial IV Q8H PRN PRN NAUSEA/VOMITING Sodium Chloride 10 - 40 ml 11/18/24 18:28 0.9% Saline Lock 10 Ml Syringe IV UD PRN SALINE FLUSH PFSH Medical History Bladder cancer Wears dentures Wears glasses Bruising Easy bruising High cholesterol Smoker Shortness of breath on exertion History of echocardiogram Cardiology follow-up encounter Stage 3b chronic kidney disease (CKD) Thrombocytopenia Chronic kidney insufficiency Pleural effusion Secondary pulmonary arterial hypertension Atherosclerotic heart disease of [place] coronary artery without angina pectoris Intention tremor Carotid stenosis, bilateral Hyperlipidemia Nonrheumatic aortic (valve) stenosis Essential hypertension Tobacco dependence Bilateral inguinal hernia Left carotid bruit Abdominal aortic aneurysm (AAA) Anemia Subcutaneous mass of back PUD (peptic ulcer disease) Cough Arthritis Home Medications ?Medication ?Instructions ?Recorded ?Last Taken ?Type aspirin 81 mg tablet,delayed 81 mg PO DAILY heart health 03/02/22 01/12/24 History release Held on 11/18/24. Instructions: Ordered rosuvastatin 5 mg tablet (Crestor) 5 mg PO DAILY cholesterol 03/02/22 03/02/22 History amlodipine 5 mg tablet 5 mg PO DAILY #30 tabs 02/28/23 Unknown Rx cholecalciferol (vitamin D3) 25 25 mcg PO DAILY supplement 10/27/23 Unknown History mcg (1,000 unit) capsule metoprolol tartrate 25 mg tablet 12.5 mg (1/2 x 25 mg) PO BID #90 03/22/24 06/27/24 05:30 Rx tabs acetaminophen 500 mg capsule 1,000 mg PO Q6H PRN pain 06/13/24 Unknown History OXYGEN - Supplemental ([facility] 11/19/24 Unknown History INFORMATIONAL USE ONLY) Allergy/AdvReac Type Severity Reaction Status Date / Time No Known Allergies Allergy Verified 11/07/24 15:31 Family History Sister Asthma Mother Arthritis Diabetes Brother Cancer Unsure what kind- just a lump on his neck Surgical History Neoplasm of bladder Hx of inguinal hernia repair S/P inguinal hernia repair History of cardiac catheterization S/P AAA repair 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) History of left heart catheterization (11/27/18) History of aortic valve replacement (02/12/19) Social History household members: none Smoking Status: Former smoker quit status: has quit before alcohol intake: never substance use type: does not use caffeine: Yes Type: coffee Number of servings: 3 what type of physical activity do you participate in: other frequency: 3-4 times per week seatbelt use: always Review of Systems (Anesthesia) ROS Narrative System reviewed and no additional complaints, except as documented.
--- NOTE | 2024-11-19 09:16 | CASEMGMT ---
Insurance review for hospitals In-network with [facility] insurance if transfer is recommended is as follows: [facility], [facility], [place], [facility], [facility], [facility], , [place], [facility], [facility], and [place].
--- NOTE | 2024-11-19 10:13 | CON.PCM.GI_ITS ---
HPI Consult Data Date of Consult: 11/19/24 HPI Narrative Reason for Consultation: GI bleed HPI Narrative: ABELARDO ROBERTS, is a 74 M who presents to the emergency room with multiple episodes of abdominal pain followed by lower GI bleeding. He underwent a transurethral bladder resection on 06/27/[address] Winston for concerns of a bladder mass. He states that he will be starting chemo treatments soon at [facility]. Patient has a history of aortic stenosis diagnosed in 2012. Patient underwent coronary angiography which revealed 80% stenosis in the RCA and patient was referred to [facility] for aortic valve and RCA revascularization. Patient underwent AVR plus CABG x 1 (Perimount #23, SVG to RCA at [facility] on 02/12/2019). Patient did well postoperatively with echocardiogram demonstrating preserved ejection fraction, normally functioning prosthetic aortic valve with peak gradient 25 mmHg and mean gradient of 13 mmHg. Patient was diagnosed with an abdominal aortic aneurysm and was sent to [place] for an opinion. It was noted to measure 5.1 cm on his abdominal pelvic CT scan. He did suggest to the surgeon that he was not currently interested in aortic surgery. He was seen in the emergency department 12/28/2021 for abdominal pain in which his CT scan demonstrated 5 cm infrarenal abdominal aortic aneurysm with adjacent retroperitoneal fluid suggesting of aneurysm leak. Patient was to be transferred to [facility] facility and on 12/28/2021 patient proceeded with thoracoretroperitoneal ruptured juxtarenal abdominal aortic aneurysm repair. Workup at that time revealed the cause of the GI bleed was a actively bleeding duodenal ulcer. He had the ulcer cauterized when he underwent EGD and colonoscopy and then was transferred to [facility] as there was concern he would need further intervention that was not available to our hospital. Patient and family state that at [facility] they simply watched him for 3 days and there was no return of bleeding so he was discharged home. I was called back to see him due to a decreasing hemoglobin requiring blood transfusions again. 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 Instructions: MD Ordered rosuvastatin 5 mg tablet (Crestor) 5 mg PO DAILY uzma sterol 03/02/22 03/02/22 History amlodipine 5 mg tablet 5 mg PO DAILY #30 tabs 02/28 Unknown Rx cholecalciferol (vitamin D3) 25 25 mcg PO DAILY supple ment 10/27/23 Unknown History mcg (1,000 unit) capsule metoprolol tartrate 25 mg tablet 12.5 mg (1/2 x 25 mg) PO BID #90 03/22/24 06/27/24 05:30 Rx tabs acetaminophen 500 mg capsule 1,000 mg PO Q6H PRN pain 06/13/24 Unknown History OXYGEN - Supplemental ([facility] 11/19/24 Unknown History INFORMATIONAL USE ONLY) Allergy/AdvReac Type Severity Reaction Status Date / Time No Known Allergies Allergy Verified 11/07/24 15:31 Family History Sister Asthma Mother Arthritis Diabetes Brother Cancer Unsure what kind- just a lump on his neck Surgical History Neoplasm of bladder Hx of inguinal hernia repair S/P inguinal hernia repair History of cardiac catheterization S/P AAA repair 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) History of left heart catheterization (11/27/18) History of aortic valve replacement (02/12/19) Social History household members: none Smoking Status: Former smoker quit status: has quit before alcohol intake: never substance use type: does not use caffeine: Yes Type: coffee Number of servings: 3 what type of physical activity do you participate in: other frequency: 3-4 times per week seatbelt use: always ROS Constitutional Constitutional: Denies fatigue, fever(s), poor appetite, weight gain or weight loss Gastrointestinal Gastrointestinal: Denies belching, bloating, change in bowel habits, change in stool character, chewing difficulty, coffee ground emesis, constipation, cramping, diarrhea, dyspepsia, dysphagia, early satiety, excessive flatus, fecal incontinence, heartburn, hematemesis, hematochezia, hemorrhoids, loose stools, melena, nausea, odynophagia, rectal bleeding, tenesmus, vomiting or weight changes Physical Exam Const alert, oriented x3, no apparent distress and average body habitus Constitutional Narrative: no acute distress. General Appearance: cooperative and comfortable HEENT normocephalic, head/scalp atraumatic, hearing grossly normal bilaterally, nasal mucous membranes and turbinates normal and moist oral mucous membranes Eyes PERRL, EOMs intact bilaterally and conjunctivae normal Neck full ROM Chest inspection of chest normal Resp normal respiratory effort, normal air movement, no use of accessory muscles and clear to auscultation bilaterally Cardio regular rate, regular rhythm, no murmurs and peripheral pulses 2+ throughout GI normal to inspection, nondistended, normoactive bowel sounds, soft to palpation, non-tender and non-distended Back/Spine normal ROM Extremity normal to inspection, full ROM and no pedal edema Skin no rashes or lesions noted Psych mental status grossly normal Lab / Micro Data 11/19/24 05:13 11/19/24 05:13 Labs: Laboratory Results - last 24 hr 11/18/24 02:14: Crossmatch See Detail 11/18/24 11:17: Lactic Acid < 1.0 11/18/24 16:50: WBC 8.2, RBC 2.81 L, Hgb 8.7 L, Hct 26.3 L, MCV 93.6 D, MCH 31.0, MCHC 33.1 D, RDW Std Deviation 53.8 H, RDW Coeff of Manjit 16.1 H, Plt Count 134 L, MPV 8.8, Immature Gran % (Auto) 0.600, Neut % (Auto) 77.4 H, Lymph % (Auto) 11.4 L, [place] % (Auto) 9.4, Eos % (Auto) 0.7, Baso % (Auto) 0.5, Absolute Neuts (auto) 6.3, Absolute Lymphs (auto) 0.93, Nucleated RBC % 0, Sodium 139, Potassium 4.9, Chloride 109 H, Carbon Dioxide 22.1, Anion Gap 8, BUN 62 H, C reatinine 1.60 H, Estim Creat Clear Calc 36.55 L, Est GFR (MDRD) Non-Af 45 L, B UN/Creatinine Ratio 38.9 H, Glucose 112 H, Calcium 8.0 11/19/24 05:13: WBC 6.0, RBC 2.34 L, Hgb 7.1 L, Hct 21.9 L, MCV 93.6, MCH 30.3, MCHC 32.4, RDW Std Deviation 53.4 H, RDW Coeff of Manjit 16.0 H, Plt Count 117 L, MPV 9.0, Sodium 139, Potassium 4.8, Chloride 110 H, Carbon Dioxide 21.7, Anion Gap 8, BUN 63 H, Creatinine 1.59 H, Estim Creat Clear Calc 36.32 L, Est GFR (MDRD) Non-Af 45 L, BUN/Creatinine Ratio 39.7 H, Glucose 111 H, Calcium 8.0 Assessment & Plan Assessment/Plan (1) GI bleed: PLAN: Differential diagnosis includes recurrent GI bleeding or duodenal ulcer. He will undergo upper endoscopy. He was explained alternatives, risk and benefits could not withstand bleeding, infection, sepsis, perforation, need for emergent urgent . He will have an ASA of 3. Charges/Coding Visit Charges Inpatient E&M: 83904 Init Hosp L3
--- NOTE | 2024-11-19 10:38 | OP.EGD_ITS ---
Patient Name: Fortunato Ivory Procedure Date: 11/19/2024 10:05 AM Date of : 1950 Age: 74 Procedure: Upper GI endoscopy Indications: Peptic ulcer Providers: Kamlesh Floyd DO Medicines: Monitored Anesthesia Care Patient Profile: This is a 74 year old male. Refer to note in patient chart for documentation of history and physical. Patient has symptoms. His most recent EGD for ulcer treatment. Complications: No immediate complications. Procedure: Pre-Anesthesia Assessment: - Prior to the procedure, a History and Physical was performed, and patient medications and allergies were reviewed. The patient is competent. The risks and benefits of the procedure and the sedation options and risks were discussed with the patient. All questions were answered and informed consent was obtained. Patient identification and proposed procedure were verified by the physician in the pre-procedure area. Mental Status Examination: alert and oriented. Airway Examination: normal oropharyngeal airway and neck mobility. Respiratory Examination: clear to auscultation. CV Examination: normal. Prophylactic Antibiotics: The patient does not require prophylactic antibiotics. Prior Anticoagulants: The patient has taken no anticoagulant or antiplatelet agents. ASA Grade Assessment: III - A patient with severe systemic disease. After reviewing the risks and benefits, the patient was deemed in satisfactory condition to undergo the procedure. The anesthesia plan was to use monitored anesthesia care (MAC). Immediately prior to administration of medications, the patient was re-assessed for adequacy to receive sedatives. The heart rate, respiratory rate, oxygen saturations, blood pressure, adequacy of pulmonary ventilation, and response to care were monitored throughout the procedure. The physical status of the patient was re-assessed after the procedure. After obtaining informed consent, the endoscope was passed under direct vision. Throughout the procedure, the patient's blood pressure, pulse, and oxygen saturations were monitored continuously. The gastroscope was introduced through the mouth, and advanced to the fourth part of the duodenum. Small bowel enteroscopy was deemed necessary. The upper GI endoscopy was accomplished without difficulty. The patient tolerated the procedure well. Scope In: 10:19:57 AM Scope Out: 10:29:53 AM Total Procedure Duration Time 0 hours 9 minutes 56 seconds Findings: The examined esophagus was normal. No gross lesions were noted in the entire examined stomach. One oozing cratered duodenal ulcer with pigmented material was found in the duodenal bulb. The lesion was 10 mm in largest dimension. For hemostasis, two hemostatic clips were successfully placed. Clip instructional writer: [employer]. There was no bleeding at the end of the procedure. There was evidence of a widely patent previous surgical anastomosis in the duodenal bulb. This was characterized by edema, erosion and erythema. Coagulation for bleeding prevention using argon plasma at 0.4 liters/minute and 30 eng was successful. Estimated blood loss was minimal. Impression: - Normal esophagus. - No gross lesions in the entire stomach. - Oozing duodenal ulcer with pigmented material. Clips were placed. Clip instructional writer: [employer]. - Widely patent previous surgical anastomosis, characterized by edema, erosion and erythema was found in the duodenum. Treated with argon plasma coagulation (APC). - No specimens collected. Recommendation: - Return patient to hospital toure for ongoing care. - Full liquid diet. - Use Protonix (pantoprazole) 40 mg PO BID. - Use sucralfate tablets 1 gram PO QID. - Continue present medications. Procedure Code(s): --- Professional --- 02139, Small intestinal endoscopy, enteroscopy beyond second portion of duodenum, not including ileum; with control of bleeding (eg, injection, bipolar cautery, unipolar cautery, laser, heater probe, stapler, plasma buyer) CPT copyright 2021 [employer]. All rights reserved. The codes documented in this report are preliminary and upon ax survey worker review may be revised to meet current compliance requirements. Kamlesh Floyd DO 11/19/2024 10:37:34 AM This report has been signed electronically. Number of Addenda: 0 Note Initiated On: 11/19/2024 10:05 AM
--- NOTE | 2024-11-19 10:38 | OP.PROVAT_ITS ---
11/19/2024 Ezekiel Carrasco [address] [place] [address] Re : Upper GI endoscopy procedure for Fortunato Ivory Dear Dr. Carrasco This procedure was performed on Tuesday, November 19, 2024. My impressions and recommendations are as follows: Impressions : - Normal esophagus. - No gross lesions in the entire stomach. - Oozing duodenal ulcer with pigmented material. Clips were placed. Clip success coach: [employer]. - Widely patent previous surgical anastomosis, characterized by edema, erosion and erythema was found in the duodenum. Treated with argon plasma coagulation (APC). - No specimens collected. Recommendations : - Return patient to hospital toure for ongoing care. - Full liquid diet. - Use Protonix (pantoprazole) 40 mg PO BID. - Use sucralfate tablets 1 gram PO QID. - Continue present medications. My findings are described in the full procedure note, which is enclosed. If I can be of further assistance, please feel free to contact me at . Sincerely, Kamlesh Floyd, 11/19/2024 10:37:34 AM This report has been signed electronically.
--- NOTE | 2024-11-19 10:41 | PCM.POST.ANE ---
Anesthesia: Postop Eval I Current Vital Signs Temperature: 98.6 F Pulse Rate: 72 Blood Pressure: 96/59 Respiratory Rate: 16 Pulse Ox: 100 Oxygen Delivery Method: Room Air Assessment Airway patent: Yes Spontaneous unlabored respirations: Yes Mental status: Asleep nausea: No Vomiting: No Anesthesia Complication: No Fluid Hydration Crystalloid volume administer (ml): 300 Total IV fluid infused: 300 Progress Note Anesthesia document: Postop Eval 1 completed: Yes
--- NOTE | 2024-11-19 11:00 | PCM.POSTANE2 ---
Anesthesia Postop Eval I Sum Postop Eval Completion status Anesthesia document: Postop Eval 1 completed: Yes Anesthesia Postop Eval I Summary Anesthesia Postop Eval I Summary: Anesthesia Postop Eval I: Assessment Summary Airway patent Yes 11/19/24 10:42 [email or web address] Spontaneous unlabored Yes 11/19/24 10:42 [email or web address] respirations Mental status Asleep 11/19/24 10:42 [email or web address] nausea No 11/19/24 10:42 [email or web address] Vomiting No 11/19/24 10:42 [email or web address] Anesthesia Postop Eval I: Fluid Summary Crystalloid volume administer 300 11/19/24 10:42 [email or web address] (ml) Colloids volume administered ( ml) Blood Product volume administered (ml) Total IV fluid infused 300 11/19/24 10:42 [email or web address] Anesthesia Postop Eval I: Summary Notes Anesthesia Complication No 11/19/24 10:42 [email or web address] Anesthesia Complication Comment: Post-operative progress note Anesthesia: Postop Eval II Evaluation Mental status: Awake Pain Level: 0 nausea: No Vomiting: No
--- NOTE | 2024-11-19 14:31 | CHAPLAIN ---
Type of Pastoral Visit _x__ Initial Visit ___ Follow-up Visit ___ On-call Visit ___ General Patient Visit ___ Spiritual Assessment ___ Family Conference ___ Bereavement ___ Rapid Response ___ Code Blue ___ Other (describe below) Pastoral Care Referral From _x__ Patient ___ Family ___ Nurse ___ Physician ___ Care Coordination Manager ___ Primary School Teacher ___ Other (describe below) Sacrament/Intervention _x__ Active listening ___ Anointing ___ Yazidism ___ Bereavement ___ Communion ___ Zeenat exploration ___ ___ Life review _x__ Prayer ___ Reconciliation ___ Sacrament of Sick _x__ Supportive presence ___ Wedding ___ Other (describe below) Pastoral Comments patient is eager to talk about the really difficult last couple of months; pt speaks of repeated problem of bleeding and the diagnosis and treatment of cancer; pt admits to pain and wanting to meet with his urology DR in another facility; pt wants to stay in [place] as much as possible for healthcare but has had to go elsewhere at times; pt has some family locally; pt is not connected to a zeenat community but open to having prayer spoken for his health;
[2024-11-19] MEDS: Ensure Plus High Protein 120 ML LIQUID PO ×2 (15:06→20:56)
[2024-11-19] MEDS: 0.9% Saline Lock 10 ML Syringe IV (16:22)
--- NOTE | 2024-11-19 19:20 | PCM.PN.HOSP ---
Reason for Visit Chief Complaint: Recurrent upper GI bleed Subjective Subjective Patient was seen and examined today, he underwent an EGD which revealed an oozing duodenal ulcer with pigmented material-clips were placed, there was also noted to be edema and some erosion and erythema at the surgical anastomosis in the duodenum. This was treated with argon plasma coagulation, I did talk with gastroenterology and they did not feel the patient needed to be transferred to tertiary facility at this time and it was discussed with the patient and his family and they were okay with staying here at the hospital. Objective Data Objective Data Vital Signs: Vital Signs Temp Pulse Resp BP Pulse Ox O2 Del Method O2 Flow Rate 97.9 F 76 16 132/54 H 99 Room Air 3 11/19/24 16:17 11/19/24 16:17 11/19/24 16:17 11/19/24 16:17 11/19/24 16:17 11/19/24 16:17 11/19/24 09:10 Oxygen Flow Rate (L/min) 3 Oxygen Delivery Method Room Air Weight: 63 kg Body Mass Index (BMI) 22.4 Intake & Output: Intake and Output for Last 24 Hours 11/17/24 11/18/24 11/19/24 23:59 23:59 23:59 Intake Total 2123 / 2123 1160 / 1160 Output Total 1152 / 1152 Balance 2124 / 1824 Medical Nutrition Assessment Dietitian: Malnutrition Criteria Met Start: 11/19/24 13:31 Freq: Status: Active Protocol: Document 11/19/24 13:31 SB (Rec: 11/19/24 13:32 SB [id number]) Nutrition Malnutrition Evidence of Yes Malnutrition Exists Malnutrition (severe Chronic ): Evidenced By Suboptimal Energy Intake (Moderate),Weight Loss (Severe ) Clinical Problem Chronic Disease or Condition Related Malnutrition Etiology severe malnutrition related to inadequate oral intake and increased energy expenditure due to bladder cancer Signs/Symptoms as evidenced by PO meeting <50% of estimated nutrition needs x 1 week and 10% unintentional weight loss x 3 months Status Active Problem Recommendation Dietitian Recommend advanced diet as tolerated to transitional Recommendations/ with goal of regular. Changes Will order 120mL chocolate EPHP 4x daily with medpass. Will monitor weight trends. Lab / Micro Data 11/21/24 05:13 11/19/24 05:13 Labs: Laboratory Results - last 24 hr 11/18/24 02:14: Crossmatch See Detail 11/19/24 05:13: WBC 6.0, RBC 2.34 L, Hgb 7.1 L, Hct 21.9 L, MCV 93.6, MCH 30.3, MCHC 32.4, RDW Std Deviation 53.4 H, RDW Coeff of Manjit 16.0 H, Plt Count 117 L, MPV 9.0, Sodium 139, Potassium 4.8, Chloride 110 H, Carbon Dioxide 21.7, Anion Gap 8, BUN 63 H, Creatinine 1.59 H, Estim Creat Clear Calc 36.32 L, Est GFR (MDRD) Non-Af 45 L, BUN/Creatinine Ratio 39.7 H, Glucose 111 H, Calcium 8.0 Micro: Microbiology 11/18/24 02:10 Stool Stool Occult Blood (ASIF) - Final Occult Blood Positive Physical Exam Const alert, oriented x3 and no apparent distress General Appearance: cooperative, well kempt and well developed Orientation / Consciousness: awake, oriented to person, oriented to place and oriented to time HEENT normocephalic, head/scalp atraumatic and moist oral mucous membranes Eyes PERRL, EOMs intact bilaterally and conjunctivae normal Neck supple, no JVD, thyroid normal and no carotid bruits General: trachea midline Resp normal respiratory effort, no retractions, no use of accessory muscles and clear to auscultation bilaterally Auscultation: Negative for rales, rhonchi or wheezes Cardio regular rate, regular rhythm, S1 normal heart sound, S2 normal heart sound, no murmurs, no rub and no gallops GI normal to inspection, nondistended, normoactive bowel sounds, soft to palpation, non-tender and non-distended Extremity no clubbing, cyanosis or edema Skin no rashes or lesions noted General Skin Exam: no breakdown Neuro oriented x3, CN's II-XII intact bilaterally, moves all extremities, no focal motor deficits and no sensory deficits noted Sensorium / Orientation: awake and alert Speech: speech normal Psych affect normal Assessment & Plan Assessment/Plan (1) Duodenal ulcer: PLAN: Plan 1. Acute upper GI hemorrhage from bleeding duodenal ulcer-CBC will be monitored, patient will remain on Carafate and Protonix #2 acute blood loss anemia secondary to #1 requiring blood transfusion-CBC will be monitored #3 chronic obstructive pulmonary disease-patient will remain on aerosol treatments #4 hypertension-patient's amlodipine is being held at this time #5 hyperlipidemia-patient is on a statin Total clinical time spent by myself addressing the patient's medical issues, reviewing all of his data, and collaborating with patient's care team: 35 minutes Charges/Coding Visit Charges Inpatient E&M: 94009 Subs Hosp L2
--- NOTE | 2024-11-19 23:50 | PCM.HOSP.N ---
Hospitalist Note Notified by nrsg that pt is having 8/10 pelvic and penis pain when voiding, which is frequently. He reports taking a pain medication at home but does not know the name of it. No opioid recorded on his med rec list. Current BP trending 90s/50s. PRN acetaminophen is not working. Considering his history of bladder cancer, I did order a x1 dose of Fentanyl 25mcg IV and Oxy IR 5mg PO q6h PRN pain 6-10, as these options are short-acting.
[2024-11-20] VITALS (16 sets, daily range): BP systolic 90–138; BP diastolic 58–68; PULSE 71–92; RESP 16–18; TEMP 36.1–37.2; O2SAT 93–100
[2024-11-20] MEDS: fentaNYL 100 MCG/2 ML Ampul 25 MCG IV (00:43)
[2024-11-20] MEDS: Budesonide Respules 0.5 MG/2 ML AMPUL.NEB. INHALATION ×2 (06:50→20:09)
[2024-11-20] MEDS: Cholecalciferol (VIT D3) 25 MCG TABLET (1,000 UNITS) PO (08:26)
[2024-11-20 09:25] LABS: Hematocrit 20.8 % (40-54); Hemoglobin 6.8 g/dL (13.0-16.5)
--- NOTE | 2024-11-20 12:12 | CASEMGMT ---
The hospitalist states to this RN CM that the pt does not require transfer to the tertiary facility any longer, according to GI. RN CM to the pt room at this time to discuss future DC planning. Pt's 6-click score is 20. Pt states that he lives at home alone but that he is indep. Pt denies the need for HH or OP Tx. Pt reports that he has home oxygen supplied through [employer] and that his daughter can bring in portability if needed as the pt daughter will be the pt's transportation home. EMail sent to [employer] to verify current oxygen orders. Pt states that he plans to improve his nutrition moving forward. Pt denies further questions or concerns at this time.
--- NOTE | 2024-11-20 14:34 | PCM.PN.HOSP ---
Reason for Visit Chief Complaint: Recurrent upper GI bleed Subjective Subjective Patient was seen and examined today, his hemoglobin this morning was 6.8, I elected to give him 2 units of packed red blood cells. CBC will be rechecked tomorrow morning, patient remains on Carafate and Protonix at this time. Objective Data Objective Data Vital Signs: Vital Signs Temp Pulse Resp BP Pulse Ox O2 Del Method O2 Flow Rate 97.4 F L 80 16 123/62 H 100 Nasal Cannula 2 11/20/24 14:15 11/20/24 14:15 11/20/24 14:15 11/20/24 14:15 11/20/24 14:15 11/20/24 14:15 11/20/24 12:15 Oxygen Flow Rate (L/min) 2 Oxygen Delivery Method Nasal Cannula Weight: 63 kg Body Mass Index (BMI) 22.4 Intake & Output: Intake and Output for Last 24 Hours 11/18/24 11/19/24 11/20/24 23:59 23:59 23:59 Intake Total 2123 / 2123 1400 / 1400 0 / 0 Output Total 1427 / 1427 700 / 700 Balance 212 / 1824 -27 / -27 -700 / -700 Medical Nutrition Assessment Dietitian: Malnutrition Criteria Met Start: 11/19/24 13:31 Freq: Status: Active Protocol: Document 11/19/24 13:31 SB (Rec: 11/19/24 13:32 SB [id number]) Nutrition Malnutrition Evidence of Yes Malnutrition Exists Malnutrition (severe Chronic ): Evidenced By Suboptimal Energy Intake (Moderate),Weight Loss (Severe ) Clinical Problem Chronic Disease or Condition Related Malnutrition Etiology severe malnutrition related to inadequate oral intake and increased energy expenditure due to bladder cancer Signs/Symptoms as evidenced by PO meeting <50% of estimated nutrition needs x 1 week and 10% unintentional weight loss x 3 months Status Active Problem Recommendation Dietitian Recommend advanced diet as tolerated to transitional Recommendations/ with goal of regular. Changes Will order 120mL chocolate EPHP 4x daily with medpass. Will monitor weight trends. Lab / Micro Data 11/21/24 05:13 11/19/24 05:13 Labs: Laboratory Results - last 24 hr 11/18/24 02:14: Crossmatch See Detail 11/18/24 02:14: Crossmatch See Detail 11/20/24 08:30: Hgb 6.8 L, Hct 20.8 L Micro: Microbiology 11/18/24 04:10 Urine, Clean Catch Urine Culture - Final Culture exhibits no growth. 11/18/24 02:10 Stool Stool Occult Blood (ASIF) - Final Occult Blood Positive Physical Exam Const alert, oriented x3, no apparent distress and average body habitus General Appearance: cooperative, well kempt and well developed Orientation / Consciousness: awake, oriented to person, oriented to place and oriented to time HEENT normocephalic and moist oral mucous membranes Eyes PERRL, EOMs intact bilaterally and conjunctivae normal Neck supple, no JVD, thyroid normal and no carotid bruits General: trachea midline Resp normal respiratory effort and clear to auscultation bilaterally Auscultation: Negative for rales, rhonchi or wheezes Cardio regular rate, regular rhythm, S1 normal heart sound, S2 normal heart sound, no murmurs, no rub and no gallops GI normal to inspection, nondistended, normoactive bowel sounds, soft to palpation, non-tender and non-distended Extremity no clubbing, cyanosis or edema Skin no rashes or lesions noted General Skin Exam: no breakdown Neuro oriented x3, CN's II-XII intact bilaterally, moves all extremities, no focal motor deficits and no sensory deficits noted Sensorium / Orientation: awake and alert Speech: speech normal Psych affect normal Assessment & Plan Assessment/Plan (1) Duodenal ulcer: PLAN: Plan 1. Acute upper GI hemorrhage from bleeding duodenal ulcer-CBC will be monitored, patient will remain on Carafate and Protonix #2 acute blood loss anemia secondary to #1 requiring blood transfusion-CBC will be monitored, patient will receive 2 units of packed red blood cells today #3 chronic obstructive pulmonary disease-patient will remain on aerosol treatments #4 hypertension-patient's amlodipine is being held at this time #5 hyperlipidemia-patient is on a statin Total clinical time spent by myself addressing the patient's medical issues, reviewing all of his data, and collaborating with patient's care team: 35 minutes Charges/Coding Visit Charges Inpatient E&M: 75707 Subs Hosp L2
[2024-11-21 05:00] VITALS: BP 118/77; PULSE 69; RESP 16; TEMP 36.7; O2SAT 94
[2024-11-21 06:48] LABS: Hematocrit 27.0 % (40-54); Hemoglobin 9.2 g/dL (13.0-16.5); Immature Granulocytes Count 0.050 X10^3/uL (0.0-0.0); Mean Corp Hgb Conc 34.1 g/dL (32-36); Mean Corpuscular Volume 93.8 fL (80-94); Mean Platelet Vol. 9.2 fl (6.2-12.0); NRBC Flagged by Analyzer 0 % (0-5); Platelet Count 104 K/mm3 (150-450); RBC Distribution Width CV 15.6 % (11.6-14.6); RBC Distribution Width SD 50.7 fl (35.1-43.9); Red Blood Count 2.88 M/mm3 (4.6-6.2); White Blood Count 6.0 K/mm3 (4.4-11.0)
[2024-11-21] MEDS: Budesonide Respules 0.5 MG/2 ML AMPUL.NEB. INHALATION (07:34)
[2024-11-21 07:38] VITALS: PULSE 74; RESP 16; O2SAT 92
[2024-11-21 08:45] VITALS: BP 106/69; PULSE 77; RESP 18; TEMP 36.3; O2SAT 97
[2024-11-21] MEDS: Cholecalciferol (VIT D3) 25 MCG TABLET (1,000 UNITS) PO (08:50)
[2024-11-21] MEDS: Ensure Plus High Protein 120 ML LIQUID PO (08:52)
--- NOTE | 2024-11-21 12:25 | PCM.DC ---
Discharge Instructions DC O2, CPAP, BIPAP needs Home O2 Discharge instructions: No Dressing / Incision Discharge Activity: Return to Normal Activity Follow Up Care Test Results: Test results from this visit will be discussed in further detail at your follow-up appointment, if applicable. Discharge Plan Admission Admit Date/Time: 11/18/24 17:28 Primary Reason for Your Visit: Acute upper GI bleed secondary to duodenal ulcer Attending Provider: Pradip Pichardo Primary Care Provider: Andrés Carrasco Consulting Providers: Derrell Fonseca; Kamlesh Floyd; Summer Grande; Oxana Cam[place]; Minda Foreman; Chet Valdivia Instructions Additional Instructions / Restrictions: Resume Trelegy inhaler as before Discharge Orders/Prescriptions Prescriptions: New sucralfate 1 gram Tablet 1 g PO 0700,1100,1600 Qty: 90 0RF pantoprazole 40 mg Tablet,Delayed Release (Dr/Ec) 40 mg PO BID Qty: 60 0RF Continued amlodipine 5 mg tablet 5 mg PO DAILY Qty: 30 11RF aspirin 81 mg tablet,delayed release (DR/EC) 81 mg PO DAILY Patient Comments: STOP PER DR. MCCLENDON PRIOR TO PROCEDURE rosuvastatin [Crestor] 5 mg tablet 5 mg PO DAILY acetaminophen 500 mg capsule 1,000 mg PO Q6H PRN (Reason: pain) cholecalciferol (vitamin D3) 25 mcg (1,000 unit) capsule 25 mcg PO DAILY (DME) OXYGEN - Supplemental ([facility] INFORMATIONAL USE ONLY) 0 .ROUTE .MEDSUPPLY Patient Comments: 2lpm @[facility] and prn during day metoprolol tartrate 25 mg tablet 12.5 mg PO BID Qty: 90 3RF Referrals / Follow Up: Andrés Carrasco MD [Primary Care Provider, Family Practice] - In 1 Week Referral Note: Obtain a repeat CBC to recheck your blood count Kamlesh Floyd DO [Med Staff - Active Staff, Gastroenterology] - See Referral Note Referral Note: In 2 to 3 weeks for follow-up Disposition Disposition (needs filled in before D/C Order can be placed): Home, Self Care
--- NOTE | 2024-11-21 13:24 | PHA.DC_ITS ---
Pharmacy [facility] has performed discharge medication counseling for this patient. The patient was counseled on the following discharge medications and changes in medications for homegoing review. - Pantoprazole 40 mg tablet, Sucralfate 1g tablet The Reason for Use, instructions for use, and potential side effects were reviewed for all new medications. The patient's questions regarding all of their medications were answered. The patient was able to verbally demonstrate an understanding of their discharge medications. Medications at Discharge Home Medications aspirin 81 mg tablet,delayed release 81 mg PO DAILY heart health 03/02/22 rosuvastatin 5 mg tablet (Crestor) 5 mg PO DAILY cholesterol 03/02/22 amlodipine 5 mg tablet 5 mg PO DAILY #30 tabs 02/28/23 cholecalciferol (vitamin D3) 25 mcg (1,000 unit) capsule 25 mcg PO DAILY supplement 10/27/23 metoprolol tartrate 25 mg tablet 12.5 mg (1/2 x 25 mg) PO BID #90 tabs 03/22/24 acetaminophen 500 mg capsule 1,000 mg PO Q6H PRN pain 06/13/24 OXYGEN - Supplemental ([facility] INFORMATIONAL USE ONLY) 11/19/24 pantoprazole 40 mg tablet,delayed release 40 mg PO BID #60 tabs 11/21/24 sucralfate 1 gram tablet 1 g PO 0700,1100,1600 #90 tabs 11/21/24
--- NOTE | 2024-11-21 13:43 | CASEMGMT ---
Per pt's RN, pt is adequately saturating on RA and does not require an updated O2 rx. No further needs identified at this time.
[2024-11-21 14:45] VITALS: BP 119/68; PULSE 78; RESP 16; TEMP 36.4; O2SAT 98
--- NOTE | 2024-11-23 12:39 | PCM.DC.SUM ---
Providers Date of Admission: 11/18/24 Date of Discharge: 11/21/24 Primary Care Physician: Dr. Andrés Carrasco MD Consultations 11/18/24 18:29 Consult: Gastroenterology Routine Consulting Provider: Yael Gastroenterology Reason for Consult: recurrent upper GIB EMERGENT Consult: No MD Notified: Yes Date Notified: 11/18/24 Time Notified: 17:32 Method of Notification: ED Physician Initiated Reason For Visit: RECURRENT UPPER GI BLEED W/ABLA Diagnosis Discharge Diagnosis (1) Duodenal ulcer: Status: Acute Code(s): K26.9 - Duodenal ulcer, unspecified as acute or chronic, without hemorrhage or perforation Plan 1. Acute upper GI hemorrhage from bleeding duodenal ulcer-CBC will be monitored, patient will remain on Carafate and Protonix #2 acute blood loss anemia secondary to #1 requiring blood transfusion-CBC will be monitored, patient will receive 2 units of packed red blood cells today #3 chronic obstructive pulmonary disease-patient will remain on aerosol treatments #4 hypertension-patient's amlodipine is being held at this time #5 hyperlipidemia-patient is on a statin Total clinical time spent by myself addressing the patient's medical issues, reviewing all of his data, and collaborating with patient's care team: 35 minutes Medications at Discharge Home Medications aspirin 81 mg tablet,delayed release 81 mg PO DAILY heart health 03/02/22 rosuvastatin 5 mg tablet (Crestor) 5 mg PO DAILY cholesterol 03/02/22 amlodipine 5 mg tablet 5 mg PO DAILY #30 tabs 02/28/23 cholecalciferol (vitamin D3) 25 mcg (1,000 unit) capsule 25 mcg PO DAILY supplement 10/27/23 metoprolol tartrate 25 mg tablet 12.5 mg (1/2 x 25 mg) PO BID #90 tabs 03/22/24 acetaminophen 500 mg capsule 1,000 mg PO Q6H PRN pain 06/13/24 OXYGEN - Supplemental ([facility] INFORMATIONAL USE ONLY) 11/19/24 albuterol sulfate 2.5 mg/3 mL (0.083 %) solution for nebulization 2.5 mg inhalation Q6H 11/21/24 calcium carbonate 500 mg PO QDAY 11/21/24 ferrous sulfate 325 mg (65 mg iron) tablet 325 mg PO QDAY 11/21/24 fluticasone fur. 200 mcg-umeclid 62.5 mcg-vilant 25 mcg inhalat.powder (Trelegy Ellipta) 1 inh inhalation QDAY 11/21/24 pantoprazole 40 mg tablet,delayed release 40 mg PO BID #60 tabs 11/21/24 sucralfate 1 gram tablet 1 g PO 0700,1100,1600 #90 tabs 11/21/24 Hospital Course Operations None Procedures Blood transfusion and EGD Summary of Care Provided Minutes Spent on Discharge: 31 Hospital Course: This 74-year-old white male was seen in the emergency room at [facility] with complaints of recurrent upper GI bleed. He had been hospitalized earlier in November for an acute upper GI bleed-endoscopy showed a duodenal ulcer with a visible vessel which was treated with injection and a heater probe. Patient was transfused 2 units of packed red blood cells at that time. Given the significance of the bleed patient was transferred to [facility] in [place] for further evaluation. The patient stated that he was observed there for 3 days without any recurrence of bleeding was able to be discharged home. Patient awoke the day of his present emergency room visit with abdominal pain had a bout of emesis with it was dark and color. He then passed a large dark bowel movement resulting in him coming to the ER for evaluation. On arrival his hemoglobin was 6 down from 9.8 on 11/15/2024. CT of the abdomen and pelvis showed diffuse thickening of the stomach from probable gastritis with acute hemorrhage products in the gastric lumen along with mild wall thickening inflammatory changes involving the proximal duodenum. Blood transfusion was initiated, the case was discussed with gastroenterology who recommended the patient be transferred to [facility] For possible interventional care. Patient was given 3 units of blood in the emergency room, he had no further episodes of emesis or dark stools but transfer has been delayed due to bed availability and the patient was admitted here to the hospital. Patient was admitted to PCU and was seen in consultation by gastroenterology who performed an endoscopy which showed a duodenal ulcer. This was treated. Patient was given further transfusions and his blood counts stabilized. On 11/23/2024, patient was seen and examined: On examination he appeared in good health and spirits. Vital signs as documented. Skin warm and dry and without overt rashes. Neck without JVD, neck was supple, trachea midline, thyroid was normal. Lungs clear bilaterally, normal air movement was noted. Heart exam notable for regular rhythm, normal sounds and absence of murmurs, rubs or gallops. Abdomen unremarkable and without evidence of organomegaly, masses, or abdominal aortic enlargement. Bowel sounds are present, abdomen is not distended. Extremities nonedematous, no cyanosis was noted, no clubbing was noted. Neuro: Cranial nerves II through XII are grossly intact, no focal motor deficits were noted, sensation to light touch and pinprick intact, motor exam 5/5 throughout. Psych: Patient is alert and oriented x3, he does not appear anxious or depressed, he does not appear agitated. Patient was discharged home in stable condition on 11/23/2024 Weight / BMI Weight Weight: 63 kg Body Mass Index (BMI) 22.4 ABG / Lab / Microbiology Data 11/21/24 05:13 11/19/24 05:13 Microbiology: Microbiology 11/18/24 04:10 Urine, Clean Catch Urine Culture - Final Culture exhibits no growth. 11/18/24 02:10 Stool Stool Occult Blood (ASIF) - Final Occult Blood Positive D/C Instructions DC O2, CPAP, BIPAP Needs Home O2 Discharge instructions: No Meaningful Use Info Meaningful Use Meaningful Use Diagnoses (Choose all that apply): None applicable Discharge Plan Admission Admit Date/Time: 11/18/24 17:28 Primary Reason for Your Visit: Acute upper GI bleed secondary to duodenal ulcer Attending Provider: Pradip Pichardo Primary Care Provider: Andrés Carrasco Consulting Providers: Derrell Fonseca; Kamlesh Floyd; Summer Grande; Brandi Perez; Minda Foreman; Chet Valdivia Instructions Additional Instructions / Restrictions: Resume Trelegy inhaler as before Discharge Orders/Prescriptions Prescriptions: New sucralfate 1 gram Tablet 1 g PO 0700,1100,1600 Qty: 90 0RF pantoprazole 40 mg Tablet,Delayed Release (Dr/Ec) 40 mg PO BID Qty: 60 0RF Continued amlodipine 5 mg tablet 5 mg PO DAILY Qty: 30 11RF aspirin 81 mg tablet,delayed release (DR/EC) 81 mg PO DAILY Patient Comments: STOP PER DR. MCCLENDON PRIOR TO PROCEDURE rosuvastatin [Crestor] 5 mg tablet 5 mg PO DAILY acetaminophen 500 mg capsule 1,000 mg PO Q6H PRN (Reason: pain) cholecalciferol (vitamin D3) 25 mcg (1,000 unit) capsule 25 mcg PO DAILY (DME) OXYGEN - Supplemental ([facility] INFORMATIONAL USE ONLY) 0 .ROUTE .MEDSUPPLY Patient Comments: 2lpm @HS and prn during day metoprolol tartrate 25 mg tablet 12.5 mg PO BID Qty: 90 3RF No Action ferrous sulfate 325 mg (65 mg iron) tablet 325 mg PO QDAY Trelegy Ellipta 200-62.5-25 mcg blister with device 1 inh inhalation QDAY albuterol sulfate 2.5 mg /3 mL (0.083 %) solution for nebulization 2.5 mg inhalation Q6H calcium carbonate 500 mg calcium (1,250 mg) tablet 500 mg PO QDAY Referrals / Follow Up: Andrés Carrasco MD [Primary Care Provider, Family Practice] - 11/28/24 2:00 pm Referral Note: Obtain a repeat CBC to recheck your blood count FriendKamlesh DO [[facility] Staff - Active Staff, Gastroenterology] - 12/06/24 10:30 am Referral Note: In 2 to 3 weeks for follow-up APPOINTMENT WITH [facility] Disposition Disposition (needs filled in before D/C Order can be placed): Home, Self Care Charges/Coding Visit Charges Inpatient E&M: 41442 Disch Hosp >30min
== END 2024-11-21 14:58 | disposition home or self-care (01) | DRG 377 ==
LOC: ED 17:45 → PCU 18:07
PROVIDERS: Internal Medicine Gastroenterology; Admitting Provider Hospitalist; Emergency Provider Emergency Medicine; PCP Family Medicine; Visit Provider Internal Medicine
PROC: 0DJ08ZZ Inspection of Upper Intestinal Tract, Via Natural or Artificial Opening Endoscopic (ICD-10-PCS; CPT 43235; principal; 2024-11-19 11:40)
DX: K26.4 Chronic or unspecified duodenal ulcer with hemorrhage (principal); E43 Unspecified severe protein-calorie malnutrition; D68.32 Hemorrhagic disorder due to extrinsic circulating anticoagulants; D62 Acute posthemorrhagic anemia; Z66 Do not resuscitate; N18.32 Chronic kidney disease, stage 3b; J44.9 Chronic obstructive pulmonary disease, unspecified; I12.9 Hypertensive chronic kidney disease with stage 1 through stage 4 chronic kidney disease, or unspecified chronic kidney disease; I25.10 Atherosclerotic heart disease of native coronary artery without angina pectoris; E78.5 Hyperlipidemia, unspecified; Z92.3 Personal history of irradiation; Z87.891 Personal history of nicotine dependence; Z79.899 Other long term (current) drug therapy; Z79.82 Long term (current) use of aspirin; Z95.1 Presence of aortocoronary bypass graft; Z68.23 Body mass index [BMI] 23.0-23.9, adult
CPT/HCPCS: 36415; 36592; 71045; 74174; 80048; 80053; 81001; 82274; 82728; 83540; 83605; 85014; 85018; 85025; 85027; 85045; 85610; 85730; 86850; 86900; 86901; 86920; 86921; 86922; 87086; 94640; 97802; 97803; 99285; 99406; C1889; P9016; Q9967; A4216; J2405

== ENCOUNTER 2024-11-23 11:21 | Emergency (ER) | payer MEDICARE, SELFPAY ==
[2024-11-23] VITALS (31 sets, daily range): BP systolic 64–152; BP diastolic 29–106; PULSE 71–123; RESP 12–30; TEMP 35.8–36.9; O2SAT 68–100
--- NOTE | 2024-11-23 12:05 | EX.ED.DYSGE1 ---
HPI History of Present Illness Chief Complaint: Complaint Narrative Narrative: Pt is a 74-year-old male who is presenting to the ER with chief complaint of feeling lightheaded, slightly dizzy with no vertigo, and also having a very strong ache when he urinates. Patient states he is been having this ache when he urinates and this has been going on for the past 8 weeks since he last had a cystoscopy. Patient has been diagnosed with a bladder tumor. Patient was initially seen here by urologist Dr. MCCLENDON. Patient was referred to [facility]. Patient has gone through chemo, radiation. Patient stated he had his last chemo and radiation several weeks ago. Patient was seen in the local [facility] physicians for oncology, Dr. HOLGUIN. Patient is upset because he had a very strong ache and pain, not burning when he urinates since the scope. Patient currently has no headache, chest pain, shortness of breath. Patient currently has no abdominal pain nausea or vomiting. Patient had several episodes of dark black stool yesterday. Patient was brought back to the ER with daughter. Patient's had 1 episode of black stool at home today. Patient has been to the [facility] several times recently and also at [facility] for admission as well. REVIEW OF SYSTEMS: Unless otherwise stated in this report the patient's positive and negative responses for review of systems for constitutional, eyes, ENT, cardiovascular, respiratory, gastrointestinal, neurological, , musculoskeletal, and integument systems and related systems to the presenting problem are either stated in the history of present illness or were not pertinent or were negative for the symptoms and/or complaints related to the presenting medical problem. Nurse's notes and vital signs reviewed. The patient is not hypoxic. Vital signs reviewed and patient is not hypoxic. General: The patient appears by distress, looking pale. Patient is resting comfortably on cart. Not toxic, lethargic, or listless. Skin: Warm, dry, + pallor noted. There is no rash noted. Head: Normocephalic, atraumatic Eye: pale conjunctiva, no drainage, EOMI. PERRL. Ears, Nose, Mouth, and Throat: oral mucosa is dry. Nares patent. Mouth without vesicles. Cardiovascular: Regular Rate and Rhythm, no murmurs, gallops, or rubs Respiratory: Patient is in no distress, no accessory muscle use, lungs are clear to auscultation, no wheezing, rales or rhonchi Back: non-tender, no CVA tenderness bilaterally to percussion. NO CTLS midline or paraspinal tenderness to palpation. GI: Soft, no midepigastric pain, no suprapubic tenderness to palpation, no flank pain bilateral, no peritoneal signs. No tenderness to palpation, no masses appreciated. No rebound, guarding, or rigidity noted. : Patient is circumcised, 2 descended testicles, patient has no drainage, discharge, bleeding, and from urethral meatus. No pain to the glans or the shaft. No pain to bilateral testicles. No signs of any type of redness, crepitus, cellulitis, or any acute signs of infection to his perineum. Musculoskeletal: The patient has full range of motion of all extremities and joints with no difficulty. Patient has no motor, no sensory deficits. Neurological: A&O x4, normal speech, no focal neurological deficits. 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 Intention tremor Carotid stenosis, bilateral Hyperlipidemia Nonrheumatic aortic (valve) stenosis Essential hypertension Tobacco dependence Bilateral inguinal hernia Left carotid bruit Abdominal aortic aneurysm (AAA) Anemia Subcutaneous mass of back PUD (peptic ulcer disease) Cough Arthritis Home Medications ?Medication ?Instructions ?Recorded ?Last Taken ?Type aspirin 81 mg tablet,delayed 81 mg PO DAILY heart health 03/02/22 01/12/24 History release rosuvastatin 5 mg tablet (Crestor) 5 mg PO DAILY cholesterol 03/02/22 03/02/22 History amlodipine 5 mg tablet 5 mg PO DAILY #30 tabs 02/28/23 Unknown Rx cholecalciferol (vitamin D3) 25 25 mcg PO DAILY supplement 10/27/23 Unknown History mcg (1,000 unit) capsule metoprolol tartrate 25 mg tablet 12.5 mg (1/2 x 25 mg) PO BID #90 03/22/24 06/27/24 05:30 Rx tabs acetaminophen 500 mg capsule 1,000 mg PO Q6H PRN pain 06/13/24 Unknown History OXYGEN - Supplemental ([facility] 11/19/24 Unknown History INFORMATIONAL USE ONLY) albuterol sulfate 2.5 mg/3 mL 2.5 mg inhalation Q6H 11/21/24 Unknown History (0.083 %) solution for nebulization calcium carbonate 500 mg PO QDAY 11/21/24 Unknown History ferrous sulfate 325 mg (65 mg 325 mg PO QDAY 11/21/24 Unknown History iron) tablet fluticasone fur. 200 mcg-umeclid 1 inh inhalation QDAY 11/21/24 Unknown History 62.5 mcg-vilant 25 mcg inhalat.powder (Trelegy Ellipta) pantoprazole 40 mg tablet,delayed 40 mg PO BID #60 tabs 11/21/24 Unknown Rx release sucralfate 1 gram tablet 1 g PO 0700,1100,1600 #90 tabs 11/21/24 Unknown Rx Allergy/AdvReac Type Severity Reaction Status Date / Time No Known Allergies Allergy Verified 11/23/24 11:22 Family History Sister Asthma Mother Arthritis Diabetes Brother Cancer Unsure what kind- just a lump on his neck Surgical History Neoplasm of bladder Hx of inguinal hernia repair S/P inguinal hernia repair History of cardiac catheterization S/P AAA repair 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) History of left heart catheterization (11/27/18) History of aortic valve replacement (02/12/19) Social History household members: none Smoking Status: Former smoker quit status: has quit before alcohol intake: never substance use type: does not use caffeine: Yes Type: coffee Number of servings: 3 what type of physical activity do you participate in: other frequency: 3-4 times per week seatbelt use: always EXAM Physical Exam Const Vital Signs: 11/23/24 11:22 11/23/24 11:41 11/23/24 11:45 Temperature 98.4 F Temperature Source Oral Pulse Rate 103 H 123 H 111 H Respiratory Rate 18 27 H 22 H Blood Pressure 99/66 102/80 Blood Pressure Mean 77 89 Blood Pressure Source Blood Pressure Position Blood Pressure Location Pulse Ox 100 Oxygen Delivery Method Nasal Cannula Oxygen Flow Rate (L/min) 2 11/23/24 12:00 11/23/24 12:15 11/23/24 12:30 Temperature Temperature Source Pulse Rate 99 97 95 Respiratory Rate 19 H 17 17 Blood Pressure Blood Pressure Mean Blood Pressure Source Blood Pressure Position Blood Pressure Location Pulse Ox Oxygen Delivery Method Oxygen Flow Rate (L/min) 11/23/24 12:45 11/23/24 13:00 11/23/24 13:15 Temperature Temperature Source Pulse Rate 104 H 90 98 Respiratory Rate 17 17 24 H Blood Pressure Blood Pressure Mean Blood Pressure Source Blood Pressure Position Blood Pressure Location Pulse Ox 85 Oxygen Delivery Method Oxygen Flow Rate (L/min) 11/23/24 13:18 11/23/24 13:19 11/23/24 13:30 Temperature Temperature Source Pulse Rate 98 117 H 97 Respiratory Rate 18 23 H 25 H Blood Pressure 152/79 H 152/79 H 101/64 Blood Pressure Mean 103 99 74 Blood Pressure Source Blood Pressure Position Blood Pressure Location Pulse Ox Oxygen Delivery Method Nasal Cannula Oxygen Flow Rate (L/min) 11/23/24 13:45 11/23/24 14:00 11/23/24 14:01 Temperature Temperature Source Pulse Rate 91 112 H 112 H Respiratory Rate 20 H 27 H 18 Blood Pressure 112/64 119/106 H Blood Pressure Mean 76 111 Blood Pressure Source Blood Pressure Position Blood Pressure Location Pulse Ox Oxygen Delivery Method Oxygen Flow Rate (L/min) 11/23/24 14:15 11/23/24 14:30 11/23/24 14:45 Temperature Temperature Source Pulse Rate 106 H 107 H 100 Respiratory Rate 30 H 26 H 22 H Blood Pressure Blood Pressure Mean Blood Pressure Source Blood Pressure Position Blood Pressure Location Pulse Ox Oxygen Delivery Method Oxygen Flow Rate (L/min) 11/23/24 15:00 11/23/24 15:02 11/23/24 15:15 Temperature Temperature Source Pulse Rate 106 H 108 H 96 Respiratory Rate 29 H 22 H 30 H Blood Pressure 146/80 H 128/34 H Blood Pressure Mean 101 59 Blood Pressure Source Blood Pressure Position Blood Pressure Location Pulse Ox 92 Oxygen Delivery Method Nasal Cannula Oxygen Flow Rate (L/min) 4 11/23/24 15:30 11/23/24 15:31 11/23/24 15:34 Temperature Temperature Source Pulse Rate 92 92 91 Respiratory Rate 25 H 23 H 22 H Blood Pressure 79/37 L 64/31 L 68/56 L Blood Pressure Mean 46 38 63 Blood Pressure Source Blood Pressure Position Blood Pressure Location Pulse Ox Oxygen Delivery Method Oxygen Flow Rate (L/min) 11/23/24 15:41 11/23/24 15:45 11/23/24 15:56 Temperature 96.5 F L Temperature Source Axillary Pulse Rate 94 92 106 H Respiratory Rate 23 H 26 H 19 H Blood Pressure 69/29 L 77/48 L 77/48 L Blood Pressure Mean 42 55 57 Blood Pressure Source Monitor Blood Pressure Position Semi-Fowlers Blood Pressure Location Right Arm Pulse Ox 68 Oxygen Delivery Method Nasal Cannula Oxygen Flow Rate (L/min) 4 11/23/24 16:00 11/23/24 16:24 11/23/24 16:55 Temperature 97.6 F L Temperature Source Axillary Pulse Rate 103 H 85 71 Respiratory Rate 21 H 18 12 Blood Pressure 87/65 L 101/57 L 120/65 Blood Pressure Mean 71 71 83 Blood Pressure Source Monitor Blood Pressure Position Semi-Fowlers Blood Pressure Location Right Arm Pulse Ox 91 100 Oxygen Delivery Method Nasal Cannula Nasal Cannula Oxygen Flow Rate (L/min) 2 2 MDM MDM MDM Narrative Medical decision making narrative: Patient seen and examined: IV, labs, IV fluids, urine testing. Differential diagnosis includes but is not limited to: ACS, dehydration, electrolyte abnormality, GI bleed, UTI, urinary retention, Relevant laboratory interpretation: Patient's hemoglobin is 7.2, hematocrit 22, platelets 113. Patient does have signs of UTI with blood, leuk esterase, greater than 100 white blood cells. Urine cultures pending Laboratory studies: BUN and creatinine are 68/1.66, hemoglobin is 7.2. Reevaluation: 1245 Dr. Pichardo called down to the ER to discuss patient's case. Patient was just discharged a few days ago from [facility]. Dr. Pichardo had discussed this case with Dr. Floyd before he had just called me. It is recommended the patient be transferred to a tertiary care center where he could have a surgical procedure for duodenal ulcer that may be actively bleeding. Patient was just discharged 2 days ago and had a hemoglobin of 9.2. Social barriers to healthcare: There are no food insecurities, there is no issue with transportation, there are no insurance barriers Disposition: 1340 I have just spoken to Florencia at the [facility] transfer line. Reporting case has been discussed. There are beds are currently full, she will discuss this with the hospitalist team and the surgical team to see what the course of action and if they are able to take on this patient. After doing chart review, patient just had a EGD done 4 days ago. It was noted that patient had a oozing duodenal ulcer with pigmented material. Clips were placed. Patient had a widely patent previous surgical anastomosis, characterized by edema, erosion, erythema was found in the duodenum. Patient had coagulation that was done as well. Patient was then started on full liquid diet, Protonix, Carafate, and continue present medications. 1444 Patient was initially admitted to Dr. Venita Merida for MedSurg telemetry, patient was maintaining his vital signs, looking sick but nontoxic. Patient had 1 small black stool this morning in the ER, but no active bleeding. 1431 patient was having chest pain, some mild difficulty breathing. EKG was ordered, along with x-ray will be ordered as well for reevaluation of patient, make sure there is no new perforation or any other new acute changes. EKG interpretation. Sinus tachycardia 103. Normal axis deviation. No acute ST elevation, no acute ectopy. Abdominal series x-ray was reviewed by myself, no free air, no obstruction, no air-fluid levels. No signs of pneumothorax, no acute cardiopulmonary disease, no infiltrate. No official read from radiology at this time. 1510 patient has decompensated. Patient became hypotensive, patient had several episodes of brownish/coffee-ground emesis. Patient has maintained his airway. Patient became clammy, diaphoretic, patient was sitting up. Patient did not aspirate. Patient has a PICC line to his left arm, a 20-gauge in the right arm. Patient will be given a dose of Compazine IV 5 mg. Patient has already had 2 separate doses of Zofran [address] Thompson is the accepting ICU doctor at [facility]. Patient is no longer excepted on MedSurg telemetry. Patient also will be leaving and [facility]. Patient and daughter have been updated multiple times. I spent 60 minutes with one-on-one care with this patient since 3:10 PM. We will repeat CBC. 1610 patient is finishing the first unit of blood. Sodium bicarb has been canceled, patient did not receive any sodium bicarb infusion on this patient. Patient initially had a 500 cc bolus of IV fluids, and patient was maintaining his blood pressure at that time. Patient had Protonix 80 mg ordered, patient also will be given the octreotide bolus and drip as well. I have spoken to Kt from the critical care team who is helping arrange [facility] for this patient as well. They are aware that if patient continues to keep vomiting, I am concerned about airway and patient may need intubated, but patient feels better after his several episodes of vomiting and is maintaining his airway and talking with no difficulty at this time. No obvious signs of aspiration. 1615 patient reassessed, patient maintaining airway. Patient does feel better after he had his 2-3 episodes of coffee-ground emesis, he was also given IV Compazine 5 mg as well. Patient is finishing his first unit of blood and will see the second unit of blood as well. Patient has had no significant large black stool bowel movements in the ER today. 1635 Patient and daughter been updated multiple times. Patient blood pressure is improving with blood. Maintaining MAP greater than 65. Patient currently receiving second unit of blood at this time [address] Garland to watch the patient until [facility] arrives in another 15 to 20 minutes. Critical care time 77 minutes exclusive from separate billable procedures that were performed. The following was considered in the determination of critical care but not limited to the level of medical decision making, intensive cardiac and/or respiratory monitoring, frequent vital sign monitoring, evaluation of laboratory studies, evaluation of radiographic studies, oxygen monitoring, and constant monitoring and speaking to family at bedside Lab Data Labs: Laboratory Results - last 24 hr 11/23/24 11/23/24 11/23/24 11:43 12:25 13:10 WBC 8.4 RBC 2.26 L Hgb 7.2 L Hct 22.0 L MCV 97.3 H MCH 31.9 MCHC 32.7 RDW Std Deviation 52.2 H RDW Coeff of Manjit 16.6 H Plt Count 113 L MPV 9.7 Immature Gran % (Auto) 0.900 Neut % (Auto) 78.0 H Lymph % (Auto) 12.3 L Martin % (Auto) 7.5 Eos % (Auto) 0.7 Baso % (Auto) 0.6 Absolute Neuts (auto) 6.6 Absolute Lymphs (auto) 1.04 Nucleated RBC % 0 Reactive Lymphocytes RARE Sodium 136 Potassium 4.8 Chloride 104 Carbon Dioxide 21.8 Anion Gap 10 BUN 68 H Creatinine 1.66 H Est GFR (MDRD) Non-Af 43 L BUN/Creatinine Ratio 40.8 H Glucose 136 H Lactic Acid 1.3 Calcium 8.5 Total Bilirubin 0.18 AST 14 ALT 9 Alkaline Phosphatase 41 Total Protein 4.9 L Albumin 3.1 L Globulin 1.8 L Albumin/Globulin Ratio 1.7 Lipase 38 Urine Color Yellow Urine Clarity Clear Urine pH 5.0 Ur Specific Morrison 1.010 Urine Protein 30 H Urine Glucose (UA) Normal Urine Ketones Negative Urine Occult Blood 50 H Urine Nitrite Negative Urine Bilirubin Negative Urine Urobilinogen Normal Ur Leukocyte Esterase 25 H Urine RBC 5-10 SEEN Urine WBC >100 SEEN Ur Squamous Epith Cells 0 SEEN Urine Bacteria 0 SEEN Urine Mucus 0 SEEN Blood Type A POSITIVE Antibody Screen NEGATIVE Crossmatch See Detail ABG Data ABG results: ABG 11/23/24 15:26 Specimen Type FAITH Sample Site Not entered VBG pH 7.34 VBG pO2 37 VBG HCO3 22 VBG Total CO2 23 VBG O2 Sat (Calc) 67 VBG Base Excess -4 L POC Mix VBG pCO2 Pt Tmp 40.0 L O2 Delivery Device Not entered Discharge Plan Dx/Rx/DC Orders Clinical Impression: Duodenal ulcer, Hypotension, ROSALIE (acute kidney injury), Nausea & vomiting, UTI (urinary tract infection) Disposition Disposition: Acute Care Hospital [facility]
[2024-11-23 12:13] LABS: Mucous, Urine 0 SEEN /hpf (<or=2+); Squamous Epithelial Cells - UA 0 SEEN /hpf (0-5)
[2024-11-23 12:14] LABS: Color, Urine Yellow (Yellow); Glucose, Dipstick Normal (Normal); Ketone-Dipstick Negative (Negative); Leukocyte Esterase-Dipstick 25 /ul (Negative); Nitrite-Dipstick Negative (Negative); Occult Blood-Urine 50 /ul (Negative); Protein-Dipstick 30 mg/dl (Negative); Specific Gravity, Urine 1.010 (1.002-1.030); Urine Bilirubin Dipstick Negative (Negative)
[2024-11-23 12:21] LABS: Red Blood Cells-Urine 5-10 SEEN /hpf (0-5)
--- NOTE | 2024-11-23 12:26 | DS.PCM_ITS ---
Providers Date of Admission: 11/18/24 Date of Discharge: 11/21/24 Primary Care Physician: Dr. Andrés Carrasco MD Reason For Visit: gu Medications at Discharge Home Medications aspirin 81 mg tablet,delayed release 81 mg PO DAILY heart health 03/02/22 rosuvastatin 5 mg tablet (Crestor) 5 mg PO DAILY cholesterol 03/02/22 amlodipine 5 mg tablet 5 mg PO DAILY #30 tabs 02/28/23 cholecalciferol (vitamin D3) 25 mcg (1,000 unit) capsule 25 mcg PO DAILY supplement 10/27/23 metoprolol tartrate 25 mg tablet 12.5 mg (1/2 x 25 mg) PO BID #90 tabs 03/22/24 acetaminophen 500 mg capsule 1,000 mg PO Q6H PRN pain 06/13/24 OXYGEN - Supplemental ([facility] INFORMATIONAL USE ONLY) 11/19/24 albuterol sulfate 2.5 mg/3 mL (0.083 %) solution for nebulization 2.5 mg inhalation Q6H 11/21/24 calcium carbonate 500 mg PO QDAY 11/21/24 ferrous sulfate 325 mg (65 mg iron) tablet 325 mg PO QDAY 11/21/24 fluticasone fur. 200 mcg-umeclid 62.5 mcg-vilant 25 mcg inhalat.powder (Trelegy Ellipta) 1 inh inhalation QDAY 11/21/24 pantoprazole 40 mg tablet,delayed release 40 mg PO BID #60 tabs 11/21/24 sucralfate 1 gram tablet 1 g PO 0700,1100,1600 #90 tabs 11/21/24 ABG / Lab / Microbiology Data Laboratory: Laboratory Results - last 24 hr 11/23/24 11:43: Urine Color Yellow, Urine Clarity Clear, Urine pH 5.0, Ur Specific Williamson 1.010, Urine Protein 30 H, Urine Glucose (UA) Normal, Urine Ketones Negative, Urine Occult Blood 50 H, Urine Nitrite Negative, Urine Bilirubin Negative, Urine Urobilinogen Normal, Ur Leukocyte Esterase 25 H, Urine RBC 5-10 SEEN, Urine WBC >100 SEEN, Ur Squamous Epith Cells 0 SEEN, Urine Bacteria 0 SEEN, Urine Mucus 0 SEEN Discharge Plan Triage Chief Complaint: Complaint ED Provider: Juan Marie Dx/Rx/DC Orders Prescriptions: No Action amlodipine 5 mg tablet 5 mg PO DAILY Qty: 30 11RF ferrous sulfate 325 mg (65 mg iron) tablet 325 mg PO QDAY Trelegy Ellipta 200-62.5-25 mcg blister with device 1 inh inhalation QDAY albuterol sulfate 2.5 mg /3 mL (0.083 %) solution for nebulization 2.5 mg inhalation Q6H calcium carbonate 500 mg calcium (1,250 mg) tablet 500 mg PO QDAY aspirin 81 mg tablet,delayed release (DR/EC) 81 mg PO DAILY Patient Comments: STOP PER DR. MCCLENDON PRIOR TO PROCEDURE rosuvastatin [Crestor] 5 mg tablet 5 mg PO DAILY acetaminophen 500 mg capsule 1,000 mg PO Q6H PRN (Reason: pain) cholecalciferol (vitamin D3) 25 mcg (1,000 unit) capsule 25 mcg PO DAILY (DME) OXYGEN - Supplemental ([facility] INFORMATIONAL USE ONLY) 0 .ROUTE .MEDSUPPLY Patient Comments: 2lpm @HS and prn during day sucralfate 1 gram Tablet 1 g PO 0700,1100,1600 Qty: 90 0RF pantoprazole 40 mg Tablet,Delayed Release (Dr/Ec) 40 mg PO BID Qty: 60 0RF metoprolol tartrate 25 mg tablet 12.5 mg PO BID Qty: 90 3RF Primary Care Provider: Andrés Carrasco Referrals: Andrés Carrasco MD [Primary Care Provider, Family Practice] Print Language: Cuban
[2024-11-23] MEDS: 0.9% Normal Saline (1000mL) 1,000 ML 999 ML IV (12:33)
[2024-11-23 12:36] LABS: Hematocrit 22.0 % (40-54); Hemoglobin 7.2 g/dL (13.0-16.5); Immature Granulocytes Count 0.080 X10^3/uL (0.0-0.0); Mean Corp Hgb Conc 32.7 g/dL (32-36); Mean Corpuscular Volume 97.3 fL (80-94); Mean Platelet Vol. 9.7 fl (6.2-12.0); NRBC Flagged by Analyzer 0 % (0-5); POSITIVE MORPHOLOGY YES; Platelet Count 113 K/mm3 (150-450); RBC Distribution Width CV 16.6 % (11.6-14.6); RBC Distribution Width SD 52.2 fl (35.1-43.9); Red Blood Count 2.26 M/mm3 (4.6-6.2); White Blood Count 8.4 K/mm3 (4.4-11.0)
[2024-11-23 12:43] LABS: Differential Indicated SCAN CRITERIA MET
--- OUTSIDE RECORDS SUMMARY | 2024-11-23 12:54 | XMS RPT_ITS | CCD ---
Author Organization [facility] Care Team Providers Care Siding Mechanic Name Role Phone Padmini Carrasco MD Primary Care Provider Dr. Ezekiel Carrasco Primary Care Provider [phone] Dr. Ezekiel Carrasco Referring Provider Dr. Raheem Farrar Attending Provider [phone] Padmini Carrasco MD Primary Care Provider Dr. Ezekiel Carrasco Primary Care Provider [phone] Dr. Ezekiel Carrasco Referring Provider Moris STATIONARY ENGINEER APPRENTICE, STATIONARY ENGINEER APPRENTICE-C Tc Larson Attending Provider Dr. Nhan Garland Emergency Provider Dr. Beatris Banks Attending Provider Dr. Beatris Banks Admit Provider Dr. Beatris Banks Other Provider Randal STATIONARY ENGINEER APPRENTICE, STATIONARY ENGINEER APPRENTICE-C Carmina Attending Provider [phone] Dr. Kwame Alex Attending Provider [phone] Raheem Farrar Attending Provider [phone] Biedshilohartrung ACUNA PA Tonia Attending Provider [phone] Evelioedshilohartrung ACUNA, PA Tonia Other Provider Dr. Ezekiel Carrasco Primary Care Provider [phone] Dr. Nhan Garland Emergency Provider Dr. Beatris Banks Attending Provider Dr. Beatris Banks Admit Provider Dr. Beatris Banks Other Provider Dr. Ezekiel Carrasco Referring Provider Moris STATIONARY ENGINEER APPRENTICE, STATIONARY ENGINEER APPRENTICE-C Tc Larson Attending Provider Randal STATIONARY ENGINEER APPRENTICE, STATIONARY ENGINEER APPRENTICE-C Carmina Attending Provider [phone] Dr. Kwame Alex Attending Provider Gregory ACUNA, PA Tonia Referring Provider Dr. Raheem Farrar Attending Provider Gregory PA, PA Tonia Attending Provider Gregory ACUNA, PA Tonia Other Provider Randal STATIONARY ENGINEER APPRENTICE, STATIONARY ENGINEER APPRENTICE-C Carmina Referring Provider [phone] Randal SLAUGHTER, STATIONARY ENGINEER APPRENTICE-C Carmina Other Provider Dr. Noe Suarez Attending Provider Dr. Bernardo Zuñiga Attending Provider Sundar ACUNA, KALPANA Regalado Attending Provider Dr. Ezekiel Carrasco Primary Care Provider KALPANA Jenkins Attending Provider KALPANA Jenkins Other Provider Dr. Ezekiel Carrasco Referring Provider Dr. Ezekiel Carrasco Primary Care Provider KALPANA Jenkins Attending Provider KALPANA Jenkins Other Provider Dr. Ezekiel Carrasco Primary Care Provider Dr. Kwame Alex Attending Provider KALPANA Doyle Referring Provider Dr. Ezekiel Carrasco Referring Provider Randal SLAUGHTER, SUKHJINDER-C Carmina Attending Provider Benjamin SLAUGHTER, STATIONARY ENGINEER APPRENTICE-C Farheen Attending Provider Dr. Ezekiel Carrasco Primary Care Provider [phone] Dr. Ezekiel Carrasco Referring Provider Randal STATIONARY ENGINEER APPRENTICE, STATIONARY ENGINEER APPRENTICE-C Carmina Attending Provider [phone] Benjamin STATIONARY ENGINEER APPRENTICE, STATIONARY ENGINEER APPRENTICE-C Farheen Attending Provider Dr. Raheem Farrar Attending Provider Luna CALLE, Dr. Bowen Primary Care Provider Eran CALLE, Dr. Camarillo Attending Provider Eran CALLE, Dr. Camarillo Referring Provider Eran CALLE, Dr. Camarillo Other Provider Luna CALLE, Dr. Bowen Referring Provider [phone] Randal STATIONARY ENGINEER APPRENTICE-C, Carmina Attending Provider Randal STATIONARY ENGINEER APPRENTICE-C, Carmina Referring Provider Luna CALLE, Dr. Bowen [...] CALLE, Dr. Bowen Primary Care Provider Randal STATIONARY ENGINEER APPRENTICE-C, Carmina Attending Provider Catrachito CALLE, Dr. Jose J Small Admit Provider [phone] Padmini Carrasco MD Primary Care Provider Jose J Winston MD Unavailable Vicente RN, Karen Carrasco MD, Dr. Bowen Primary Care Provider Luna CALLE, Dr. Bowen Referring Provider Benjamin SLAUGHTER-C, Farheen Attending Provider Abrahan CALLE, Stacy Ortega Unavailable Darren CALLE, Luigi Unavailable Riccardo RN, Matthew Unavailable Unavailable Tita DO, Lakeisha Irving Unavailable Amol STEARNS, Antoni Unavailable Unavailabl e Luna CALLE, Dr. Bowen Primary Care Provider Luna CALLE, Dr. Bowen Referring Provider Catrachito CALLE, Dr. Jose J Small Attending Provider Catrachito CALLE, Dr. Jose J Small Referring Provider Luna CALLE, Dr. Bowen Attending Provider Tita HINSON, Dr. Cruz Attending Provider Tita HINSON, Dr. Cruz Referring Provider Luna CALLE, Dr. Bowen Primary Care Physicia n Luna CALLE, Dr. Bowen Referring Provider Farheen Wasserman Attending Physician Tita HINSON, Dr. Cruz Attending Physician MatthewSilvestre HINSON, Dr[facility] Phys[facility] Jasmyne CALLE, Dr. Suzanne Potts Attending Physician Jasmyne CALLE, Dr. Suzanne Potts Referring Provider Raymundo CALLE, Dr. Dove Nurse Practitioner Mariel HINSON, Dr. Whitlock Nurse Practitioner Harjinder STATIONARY ENGINEER APPRENTICE-C, Summer Nurse Practitioner Marquise STATIONARY ENGINEER APPRENTICE-C, [place] Nurse Practitioner Minda Gonzalez Nurse Practitioner Nathaniel CALLE, Dr. Wilkes Nurse Practitioner Ann CALLE, Dr. Dugan Nurse Practitioner Erick CALLE, Dr. Liu Nurse Practitioner Yogesh HINSON, Dr. Chang Nurse Practitioner [phone] Leandra CALLE, Dr. Jatinder Loya Nurse Practitioner Van CALLE, Dr. Denise Nurse Practitioner Jarad CALLE, Dr. Deal Nurse Practitioner Anabel CALLE, Dr. Ott Nurse Practitioner Bruno CALLE, Dr. Randall Nurse Practitioner [phone] Jose CALLE, Dr. Mac Nurse Practitioner [phone] Harsh CALLE, Dr. Gil Nurse Practitioner [phone] Gideon CALLE, Dr. Dobson Nurse Practitioner Dean CALLE, Dr. Iniguez Nurse Practitioner Unavail able Marely CALLE, Dr. Lechuga Nurse Practitioner [phone] Indira CALLE, Dr. Perez Nurse Practitioner Jayme CALLE, Dr. Michael Nurse Practitioner Kuhrram CALLE, Dr. Forbes Nurse Practitioner [phone] Ruby HINSON, Dr. Mcgowan Nurse Practitioner Ann CALLE, Dr. Silva Nurse Practitioner Vladimir CALLE, Dr. Biggs Nurse Practitioner Narayan HINSON, Dr. Wheeler Nurse Practitioner [phone] Arnold CALLE, Dr. Wiseman Nurse Practitioner [phone] Alfred CALLE, Dr. Ivory Nurse Practitioner Elias CALLE, Dr. Sen Nurse Practitioner Mariel HINSON, Dr. Whitlock Attending Physician Mariel HINSON, Dr. Whitlock Referring Provider Jasmyne CALLE, Dr. Suzanne Potts Nurse Practitioner MatthewSilvestre HINSON, Dr. Andujar [facility] t Physician Mariel HINSON, Dr. Whitlock Nurse Practitioner Jasmyne CALLE, Dr. Suzanne Potts Attending Physician Jasmyne CALLE, Dr. Suzanne Potts Referring Provider Jasmyne CALLE, Dr. Suzanne Potts Admitting Physician Raymundo CALLE, Dr. Dove Nurse Practitioner Harjinder STATIONARY ENGINEER APPRENTICE-C, Summer Nurse Practitioner Marquise STATIONARY ENGINEER APPRENTICE-C, [place] Nurse Practitioner Kellen ACUNA, Minda Nurse Practitioner Nathaniel CALLE, Dr. Wilkes Nurse Practitioner Ann CALLE, Dr. Dugan Nurse Practitioner Erick CALLE, Dr. Liu Nurse Practitioner [phone] Yogesh HINSON, Dr. Chang Nurse Practitioner [phone] Leandra CALLE, Dr. Jatinder Loya Nurse Practitioner Van CALLE, Dr. Denise Nurse Practitioner Jarad CALLE, Dr. Deal Nurse Practitioner Anabel CALLE, Dr. Ott Nurse Practitioner Bruno CALLE, Dr. Randall Nurse Practitioner Jose CALLE, Dr. Mac Nurse Practitioner Harsh CALLE, Dr. Gil Nurse Practitioner Gideon CALLE, Dr. Dobson Nurse Practitioner [phone] Dean CALLE, Dr. Iniguez Nurse Practitioner Unavail payam Yap MD, Dr. Lechuga Nurse Practitioner [phone] Indira CALLE, Dr. Perez Nurse Practitioner [phone] Jayme CALLE, Dr. Michael Nurse Practitioner Khurram CALLE, Dr. Forbes Nurse Practitioner [phone] Ruby HINSON, Dr. Mcgowan Nurse Practitioner Ann CALLE, Dr. Silva Nurse Practitioner [phone] Vladimir CALLE, Dr. Biggs Nurse Practitioner Dr. Liam Busch DO Nurse Practitioner [phone] Arnold CALLE, Dr. Wiseman Nurse Practitioner [phone] Alfred CALLE, Dr. Ivory Nurse Practitioner Elias CALLE, Dr. Sen Nurse Practitioner SUZANNE MEDLEY Referring Unavailable LUNA, PADMINI Howell Primary Care Unavailabl e TANIA DE LUNA Attending Unavailable NANETTE ALVARADO Consulting Unavailable KATARINA MOORE Admitting Unavailable ABRAHAN, STACY F Attending Unavailable LUNA, PADMINI B Primary Care Unavailabl e ABRAHAN, STACY F Attending Unavailable LUNA, KALLIER B Primary Care Unavailabl e ABRAHAN, STACY F Referring Unavailable LUNA, PADMINI B Primary Care Unavailabl e ABRAHAN, STACY F Referring Unavailable LUNA, PADMINI B Primary Care Unavailabl e ABRAHAN, STACY F Admitting Unavailable ABRAHAN, STACY F Attending Unavailable ABRAHAN, STACY F Referring Unavailable LUNA, PADMINI B Primary Care Unavailabl e LAKEISHA DAWKINS Referring Unavailable LUNA, KALLIER B Primary Care Unavailabl e RANDARRIN, KALLIER B Primary Care Unavailabl e [facility] Primary Care Unavailabl e LUIGI BANKS Attending Unavailable RANDARRIN, KALLIER B Primary Care Unavailabl e RANDARRIN, KALLIER B Primary Care Unavailabl e [facility], [facility] Primary Care Unavailabl e DARREN DAHUMBERTO Attending Unavailable RANDARRIN, [facility] B Primary Care Unavailabl e DARREN DAANDREASUNG Attending Unavailable LUNA, KALLIER B Primary Care Unavailabl e RANDARRIN, CHRISTOPHER B Primary Care Unavailabl e [facility]IN, [facility] Primary Care Unavailabl e [facility]ANDARRIN, [facility] Primary Care Unavailabl e JOSE J WINSTON Referring Unavailable CODEY CHRISTIANSON Attending Unavailable LUNA, KALLIER B Primary Care Unavailabl e REEMA CHRISTIANSONLPA Referring Unavailable LUNA, KALLIER B Primary Care Unavailabl e CHRISTIANSON, CODEY Referring Unavailable LUNA, [facility]ER B Primary Care Unavailabl e LAKEISHA DAWKINS Referring Unavailable PADMINI CARRASCO Primary Care Unavailabl e [facility] Howell Primary Care Unavailabl e PADMINI CARRASCO Primary Care Unavailabl e [facility] Howell Primary Care Unavailabl e LAKEISHA DAWKINS Referring Unavailable LUIGI BANKS Attending Unavailable PADMINI CARRASCO Primary Care Unavailabl e [facility] Primary Care Unavailabl e PADMINI CARRASCO Primary Care Unavailabl e [facility] Howell Primary Care Unavailabl e BOB OTERO Attending Unavailable [facility]ell Primary Care Unavailabl e CODEY CHRISTIANSON Referring Unavailable [facility] Howell Primary Care Unavailabl e LAKEISHA DAWKINS Referring Unavailable PADMINI CARRASCO Primary Care Unavailabl e SELF Referring Unavailable LAKEISHA DAWKINS Attending Unavailable PADMINI CARRASCO Primary Care Unavailabl e STACY GAUTHIER Referring Unavailable [facility] Primary Care Unavailabl e [facility] Howell Primary Care Unavailabl e LUIGI BANKS Attending Unavailable PADMINI CARRASCO Primary Care Unavailabl e [facility] Howell Primary Care Unavailabl e [facility] Howell Primary Care Unavailabl e PADMINI CARRASCO Primary Care Unavailabl e PADMINI CARRASCO Primary Care Unavailabl e PADMINI CARRASCO Primary Care Unavailabl e [facility] Howell Primary Care Unavailabl e STACY GAUTHIER Referring Unavailable LAKEISHA DAWKINS Referring Unavailable PADMINI CARRASCO Primary Care Unavailabl e PADMINI CARRASCO Primary Care Unavailabl e PADMINI CARRASCO Primary Care Unavailabl e [facility] Howell Primary Care Unavailabl e [facility] Howell Primary Care Unavailabl e [facility] Howell Primary Care Unavailabl e LUIGI BANKS Attending Unavailable PADMINI CARRASCO Primary Care Unavailabl e PADMINI CARRASCO Primary Care Unavailabl e [facility] Howell Primary Care Unavailabl e LUIGI BANKS Referring Unavailable PADMINI CARRASCO Primary Care Unavailabl e LUIGI BANKS Attending Unavailable PADMINI CARRASCO Primary Care Unavailabl e PADMINI CARRASCO Primary Care Unavailabl e KALLI CARRASCOER B Primary Care Unavailabl e LUNA, CHRISTOPHER B Primary Care UnavailMarquise Dias Attending Unavailable Marquise Barillas Referring [facility]available [facility] Unavailable Raymundo, Derrell Consulting Unavailable Mariel, Kamlesh Attending Unavailable Chet Valdivia Admitting Unavailable Luna, [facility] Primary Care Unavailable Friend, Kamlesh Consulting Unavailable Summer Grande Consulting Unavailable Oxana Camarillo Consulting Unavailable Minda Foreman Consulting Unavailable Chet Valdivia Consulting Unavailable Pradip Pichardo Consulting Unavailable Summer Grande Attending Unavailable Raymundo, Derrell Consulting Unavailable Pradip Pichardo Attending Unavailable Chet Valdivia Admitting Unavailable Randarrin, [facility] Primary Care Unavailable Friend, Kamlesh Consulting Unavailable Summer Grande Consulting Unavailable Oxana Camarillo Consulting Unavailable Minda Foreman Consulting Unavailable Chet Valdivia Consulting Unavailable Suzanne Medley Referring Unavailable Friend, Kamlesh Attending Unavailable WhiteSuzanne Admitting Unavailable [facility] [place] Primary Care Unavailable Raymundo, Derrell Consulting Unavailable Friend, Kamlesh Consulting Unavailable Summer Grande Consulting Unavailable Oxana Camarillo Consulting Unavailable Minda Foreman Consulting Unavailable Kaleigh Armstrong Consulting Unavailable Ritchie Juarez Consulting Unavailable Noe Suarez Consulting Unavailable Bernardo Zuñiga Consulting Unavailable Jatinder Mobley Consulting Unavailable Howie Araujo Consulting Unavailable Say Abraham Consulting Unavailable Namrata Little Consulting UnavailPrakash Hua Consulting Unavailable Bubba Garcia Consulting Unavailable Jeffery House Consulting Unavailable Olya Meneses Consulting Unavailable Geetha Moran Consulting Unavailable Alexandrea Yap Consulting Unavailable Indira, Chris Consulting Unavailable Etienne Delacruzan Consulting Unavailable Khurram, Andrei Consulting Unavailable Dhedanis, Juan M Consulting Unavailable Ricardo Juarez Consulting Unavailable Dian Gilbert Consulting Unavailable Liam Busch Consulting Unavailable Bowen Barrett Consulting Unavailable Dianelys Simon Consulting UnavailMckinley Castellanos Consulting Unavailable Padmini Carrasco Attending Unavailable Luna, [facility] Primary Care Unavailable Luna, Padmini Referring Unavailable Luna, [facility] Primary Care Unavailable Luna, Padmini Referring Unavailable Farheen Alexander NP Attending Unavailable Chet Valdivia Attending Unavailable [place], [facility] Primary Care Unavailable Pradip Pichardo Attending Unavailable Friend, Kamlesh Consulting Unavailable Friend, Kamlesh Attending Unavailable Friend, Kamlesh Referring Unavailable [place], [place] Primary Care Unavailable WhiteSuzanne L Attending Unavailable White Suzanne L Referring Unavailable Friend, Kamlesh Consulting Unavailable [facility] Unavailable WhiteSuzanne L Consulting Unavailable CatrachitoJose J frias Attending Unavailable Catrachito, Jose J Small Admitting Unavailable Catrachito, Jose J Small Referring Unavailable Ranney, [facility] Primary Care Unavailable Randal STATIONARY ENGINEER APPRENTICE, Carmina Attending Unavailable Randal STATIONARY ENGINEER APPRENTICE, Carmina Referring Unavailable Ranney, [facility] Primary Care Unavailable Catrachito, Jose J Small Referring Unavailable Catrachito, Jose J Small Attending Unavailable Ranney, [facility] Primary Care Unavailable Jeffery Turpin Attending Unavailable [place], [place] Primary Care Unavailable RanneyPadmini Attending Unavailable Ranney, [facility] Primary Care Unavailable Ranney, Christopher Referring Unavailable Marquise Barillas Attending Unavailable Marquise Barillas Referring Unavailable Marquise Barillas Consulting Unavailable Ranney, [facility] Primary Care Unavailable Ranney, [facility] Primary Care Unavailable Marquise Barillas Attending Unavailable Ranney, Christopher Referring Unavailable Lakeisha Dawkins Referring Unavailable Ranney, [facility] Primary Care Unavailable Lakeisha Dawkins Attending Unavailable Ranney, [facility] Primary Care Unavailable Ranney, Christopher Attending Unavailable Nito Rosales Attending Unavailable Ranney, Christopher Referring Unavailable Ranney, [facility] Primary Care Unavailable Randal SLAUGHTER, Carmina Attending Unavailable [place], [facility] Primary Care Unavailable Ranney, Christopher Referring Unavailable Catrachito, Jose J Small Attending Unavailable Catrachito, Austin Referring Unavailable Ranney, [facility] Primary Care Unavailable Catrachito, Jose J Small Attending Unavailable Ranney, [facility] Primary Care Unavailable Catrachito, Austin Referring Unavailable Medications Current Medications Medication Drug Class(es) Dates Sig (Normalized) Sig (Original) acetaminophen 500 mg oral capsule (20 sources) Start: 06-13-2024 take 2 capsules by mouth every six hours as needed for pain Acetaminophen 500 mg capsule Active 1000 mg PO EVERY 6 HOURS as needed for pain June 13, 2024 12:00am Complies with drug therapy Start: 01-06-2022 take 650 mg by mouth every four hours Acetaminophen Active 650 MG PO Q4H January 06, 2022 1:00am Start: 01-01-2022 End: 10-24-2023 take 2 tablets by mouth every four hours as needed for pain Acetaminophen 325 mg tablet Discontinued 650 mg PO Q4H as needed for Pain January 06, 2022 1:00am October 24, 2023 8:28am Comment on above: Take 2 tablets by [facility] every 4 hours. amLODIPine 5 mg oral tablet (20 sources) Dihydropyridine Calcium Channel Jami Start: take 1 tablet by mouth once daily Amlodipine 5 mg tablet Active 5 mg PO DAILY 06 01February 28, 2023 1:00am Complies with drug therapy aspirin 81 mg delayed release oral tablet (20 sources) Platelet Aggregation Inhibitor, Nonsteroidal Anti-inflammatory Drug Start: 0 take 1 tablet by mouth once daily aspirin 81 mg chewable tablet Take 1 tablet by mouth once daily. 30 tablet 02/21/2019 Active Start: 12-06-2018 End: 03-02-2022 take 1 tablet by mouth once daily Aspirin 81 mg tablet,delayed release (DR/EC) Active 81 mg PO DAILY March 02, 2022 1:09pm [facility] Complies with drug therapy Start: 05-14-2018 End: 11-01-2018 take 1 tablet by mouth once daily Aspirin 81 MG tablet,chewable Discontinued 81 mg PO DAILY May 14, 2018 12:00am November 01, 2018 8:23am Comment on above: Take 1 tablet by [facility] once daily. cholecalciferol 0.025 mg oral capsule (20 sources) Vitamin D Start: 10-27-19 take 1 capsule by mouth once daily Cholecalciferol (Vitamin D3) 25 mcg (1,000 unit) capsule Active 25 ug PO DAILY October 27, 2023 12:00am Complies with drug therapy Start: 03-02-2022 End: 10-24-2023 take 1 tablet by mouth once daily Cholecalciferol (Vitamin D3) 25 mcg (1,000 unit) Tablet Discontinued 25 ug PO DAILY March 02, 2022 1:00am October 24, 2023 8:28am supplement take 1 capsule by [facility] once daily cholecalciferol, vitamin D3, (VITAMIN D-3) 10 mcg (400 unit) cap Take 400 Units by mouth once daily. Active Hezesesqvmz-Boocxrdwc-Sdpzmi er (20 sources) Start: 06-13-2024 Skvzjtsjmjz-Xfpycymtm-Fdopmo er (Trelegy Ellipta) 200-62.5-25 mcg blister with device Active 1 NMA INHALATION DAILY as needed for SOB June 13, 2024 12:00am Complies with drug therapy Start: 06-13-2024 Start: 06-13-2024 Fluticasone-Um eclidin-Vilanter (Trelegy Ellipta) 200-62.5-25 mcg blister with device Active 1 NMA INHALATION DAILY as needed for SOB June 13, 2024 12:00am Start: 03-23-2024 End: 06-13-2024 Iujlhbvkekm-Rdvwayvhc-Llmkih er (Trelegy Ellipta) 200-62.5-25 mcg blister with device Discontinued 1 NMA INHALATION DAILY 60 March 23, 2024 1:57pm June 13, 2024 10:19am Start: 03-23-2024 End: 06-13-2024 Drpeariwbty-Cxgskksfz-Vyigpc er (Trelegy Ellipta) 200-62.5-25 mcg blister with device Discontinued 1 NMA INHALATION DAILY 60 March 23, 2024 1:57pm June 13, 2024 10:19am Start: 03-23-2024 Fluticasone-Um eclidin-Vilanter (Trelegy Ellipta) 200-62.5-25 mcg blister with device Active 1 NMA INHALATION DAILY 60 March 23, 2024 1:57pm Start: 01-27-2023 End: 03-23-2024 Zxghotvbxbq-Hsufjitqq-Makakq er (Trelegy Ellipta) 200-62.5-25 mcg blister with device Discontinued 1 NMA INHALATION DAILY 60 January 27, 2023 1:00am March 23, 2024 1:58pm Start: 01-27-2023 End: 03-23-2024 Xsgksxqnqcq-Aivtgzrwl-Cwistm er (Trelegy Ellipta) 200-62.5-25 mcg blister with device Discontinued 1 NMA INHALATION DAILY January 27, 2023 1:00am March 23, 2024 1:58pm Start: 01-27-2023 Fluticasone-Um eclidin-Vilanter (Trelegy Ellipta) 200-62.5-25 mcg blister with device Active 1 INH INHALATION DAILY January 27, 2023 1:00am Start: 01-27-2023 Fluticasone-Um eclidin-Vilanter (Trelegy Ellipta) 200-62.5-25 mcg blister with device Active 1 INH INHALATION DAILY January 27, 2023 12:00am fbgmlkttybf-quijmrbxo-udgevv er (TRELEGY ELLIPTA) 200-62.5-25 mcg inhalation powder (20 sources) take 1 puff(s) by inhalation once daily uvnvdwwwzpu-zuuppvjgp-rmunyqkj (TRELEGY ELLIPTA) 200-62.5-25 mcg inhalation powder Inhale [...] Take 10 mg by mouth once daily. rosuvastatin calcium 5 mg oral tablet (20 sources) HMG-CoA Reductase Inhibitor Start: 1 End: 3 take 1 tablet by mouth once daily Rosuvastatin (Crestor) 5 mg tablet Active 5 mg PO DAILY March 02, 2022 1:09pm cholesterol Complies with drug therapy Comment on above: Take 5 mg by mouth o nce daily. traMADol hydrochloride 50 mg oral tablet (20 sources) Opioid Agonist Start: 5 End: 5 take 1 tablet by mouth every twelve [...] 4:29pm calcium carbonate 1250 mg oral tablet (20 sources) Start: 10-27-2023 End: 06-13-2024 take 1 [...] 2023 8:28am cephalexin 500 mg oral capsule (10 sources) Cephalosporin Antibacterial Start: 05-17-2024 End: 06-13-2024 [...] unit/gram ointment Discontinued 1 NMA TOPICAL DAILY 30 April 12, 2022 1:00am February 28, 2023 [...] Comment on above: Take 1 capsule by [facility] twice daily. enteric contrast (will be [...] Active ferrous sulfate 325 mg oral tablet (13 sources) Start: 02-28-2023 End: 10-24-2023 take 1 [...] PPE. Protect from Light. Start: 09-24-2024 End: 09-24-2024 4,500 mg (2,500 mg/m2 1.8 m2 Treatment [...] 2019 11:40am ibuprofen 600 mg oral tablet (8 sources) Nonsteroidal Anti-inflammatory Drug Start: 06-27-2024 End: [...] mg tablet Discontinued 2.5 mg PO DAILY March 23, 2022 1:00am March 29, 2022 [...] Recorded weight), INTRAVENOUS, ONCE, 1 dose, On 09/24/24 at 1200, - SYRINGE - Expires: 09/26/24 [...] 1:00am September 12, 2019 11:41am Multivitamin tablet (11 sources) Start: 03-14-2019 End: 09-12-2019 Multivitamin tablet Discontinued 1 {tbl} PO EVERY MORNING March 14, 2019 1:00am September 12, 2019 11:41am Tiotropium-Olodaterol (17 sources) Anticholinergic, beta2-Adrenergic Agonist Start: 08-24-2022 End: [...] Comment on above: Take 1 capsule by [facility] once daily. 2 ml ondansetron 2 mg/ml injection (20 sources) Serotonin-3 Receptor Antagonist Start: 10-15-2024 End: 10-15-2024 8 mg, INTRAVENOUS, ONCE, 1 dose, On Tue10/15/24 at 0930 Start: 09-24-2024 End: 09-24-2024 8 mg, INTRAVENOUS, ONCE, 1 d ose, On Tue09/24/24 at 1100 Start: 09-12-2024 take 1 tablet by [facility] every eight hours as needed [...] as needed for up to 9 doses. phenazopyridine hydrochloride 100 mg oral tablet (20 sources) Start: 08-30-19 End: 09-04-19 take 1 tablet by mouth every eight hours as needed phenazopyridine (PYRIDIUM) 200 mg tablet Take 1 tablet by mouth three times a day as needed (burning when urinating) for up to 5 days. Turns urine bright orange and stains 20 tablet 08/29/2024 09/03/2024 Active Start: 06-21-2024 End: 11-07-2024 take 1 tablet by mouth three times daily Phenazopyridine 100 mg tablet Discontinued 100 mg PO THREE TIMES A DAY August 30, 2024 12:00am November 07, 2024 6:56pm Start: 05-17-2024 End: 06-13-2024 take 1 tablet by mouth three times daily Phenazopyridine (Pyridium) 200 mg tablet Discontinued 200 mg PO THREE TIMES A DAY 6 2 0 May 17, 2024 12:00am June 13, 2024 10:18am potassium chloride 20 meq extended release oral tablet (20 sources) Start: 03-23-2022 End: 03-29-2022 take 1 tablet by mouth once daily Potassium Chloride 20 mEq tablet extended release Discontinued 20 meq PO DAILY 2 March 23, 2022 1:00am March 29, 2022 5:46pm predniSONE 10 mg oral tablet (20 sources) Start: 03-04-2022 End: 03-29-2022 Prednisone 10 mg tablet Discontinued 10 mg PO DAILY 40 March 04, 2022 1:00am March 29, 2022 3:53pm 4 tablets x 4 days, 3 tablets x 4 days, 2 tablets x 4 days, 1 tablet x 4 days 1000 ml sodium chloride 9 mg/ml injection (1 source) Start: 09-27-2024 End: 09-27-2024 1,000 mL, INTRAVENOUS, at 500 mL/hr, Administer over 2 Hours, ONCE, 1 dose, On Mayra 09/27/24 at 1030 spironolactone 25 mg oral tablet (20 sources) Aldosterone Antagonist Start: 03-19-2022 End: 05-17-2022 take 1 tablet by mouth once daily Spironolactone 25 mg tablet Discontinued 25 mg PO DAILY 90 3 March 19, 2022 1:00am May 17, 2022 2:41pm sulfamethoxazole 800 mg / trimethoprim 160 mg oral tablet (9 sources) Dihydrofolate Reductase Inhibitor Antibacterial, Sulfonamide Antimicrobial Start: 08-29-2024 End: 11-07-2024 Sulfamethoxazole-T rimethoprim 800-160 mg tablet Discontinued 1 {tbl} PO TWICE A DAY August 30, 2024 12:00am November 07, 2024 6:56pm tamsulosin hydrochloride 0.4 mg oral capsule (10 sources) alpha-Adrenergic Jami Start: 05-17-2024 End: 06-13-2024 take 1 capsule by mouth once daily Tamsulosin (Flomax) 0.4 mg capsule Discontinued 0.4 mg PO DAILY 14 14 May 17, 2024 12:00am June 13, 2024 10:18am Tiotropium Boutte (20 sources) Anticholinergic Start: 11-17-2018 End: 11-22-2018 take 2.5 ug by inhalation once daily Tiotropium Boutte (Spiriva Respimat) 2.5 mcg/actuation mist Discontinued 2 NMA INHALATION DAILY November 17, 2018 12:00am November 22, 2018 10:40am Start: 11-17-2018 End: 11-22-2018 take 1 puff(s) by inhalation once daily Tiotropium Boutte (Spiriva Respimat) 2.5 mcg/actuation mist Discontinued 2 PUFF INHALATION DAILY November 16, 2018 11:00pm November 22, 2018 9:40am Start: 11-17-2018 End: 11-22-2018 take 1 puff(s) by inhalation once daily Tiotropium Boutte (Spiriva Respimat) 2.5 mcg/actuation mist Discontinued 2 PUFF INHALATION DAILY November 17, 2018 12:00am November 22, 2018 10:40am Problems Active Problems Problem Classification Problem Date Documented Da te Episodic/Chronic Acute and unspecified renal failure (5 sources) Acute renal failure syndrome; Translations: [Acute kidney failure, unspecified] Onset: 5 09-06-2024 Episodic Acute posthemorrhagic anemia (20 sources) Acute posthemorrhagic anemia; Translations: [Acute posthemorrhagic anemia] Onset: 0 Resolved: 0 02-15-2019 Episodic Aortic; peripheral; and visceral artery aneurysms [...] Coronary atherosclerosis; Translations: [Atherosclerotic heart disease of knik coronary artery with other forms of angina pectoris] Onset: 9 02-20-2019 Chronic Comment on above: CABG x 1: SVG-RCA 02/12/2019; Deficiency and other anemia (20 sources) Anemia; Translations: [Anemia, unspecified] Onset: 0 Resolved: 0 09-12-2019 Episodic Diabetes mellitus with complications (1 source) [...] hemorrhage or perforation] Onset: 2 12-28-2021 Chronic Gastrointestinal hemorrhage (10 sources) Gastrointestinal hemorrhage; Translations: [Gastrointestinal hemorrhage, unspecified] Onset: 5 11-07-2024 Episodic Heart valve disorders (20 sources) Aortic [...] diseases of kidney and ureters (3 sources) Chronic renal insufficiency; Translations: [Disorder of kidney and ureter, unspecified] 03-12-2022 Episodic Other diseases of kidney and ureters [...] right upper limb] Onset: 3 06-08-2012 Chronic Pleurisy; pneumothorax; pulmonary collapse (20 sources) Atelectasis; Translations: [Atelectasis] Onset: 0 02-20-2019 Episodic Pneumonia (except that caused by tuberculosis or sexually transmitted disease) (20 sources) Pneumonia; Translations: [Pneumonia, unspecified organism] 03-02-2022 Episodic Pulmonary heart disease (20 sources) Pulmonary arterial hypertension; Translations: [Secondary pulmonary arterial hypertension] 07-07-2021 Chronic Residual codes; unclassified (20 sources) Edema of lower extremity; Translations: [Localized edema] 03-23-2022 Episodic Residual codes; unclassified (20 sources) Localized edema; Translations: [Edema] 03-23-2022 Episodic Residual codes; unclassified (19 sources) History of repair of aneurysm of abdominal aorta; Translations: [Other specified postprocedural states] 12-15-2022 Episodic Residual codes; unclassified (2 sources) Other specified postprocedural states; Translations: [Other postprocedural status] Onset: 5 12-27-2022 Episodic Respiratory failure; insufficiency; arrest (adult) (20 sources) Acute respiratory failure; Translations: [Acute respiratory failure with hypoxia] 03-02-2022 Episodic Shock (7 sources) Hemorrhagic shock; Translations: [Other shock] Onset: 5 11-07-2024 Episodic Substance-related disorders (20 sources) Nicotine dependence; Translations: [Nicotine dependence, unspecified, uncomplicated] Onset: 0 02-20-2019 Chronic Unclassified (6 sources) Transition of care; Translations: [Transition of care performed with sharing of clinical summary] Onset: 0 02-20-2019 Unclassified (2 sources) Status post abdominal aortic aneurysm (AAA) repair Unclassified (5 sources) Z98.890 - Other specified postprocedural states,Z86.79 - Personal history of other diseases of the circulatory system,I71.4 - Abdominal aortic aneurysm, without rupture Unclassified (1 source) Radiotherapy On-treatment Visit Onset: Urinary tract infections (10 sources) Acute hemorrhagic cystitis; Translations: [Acute cystitis with hematuria] 05-17-2024 Episodic Past or Other Problems Problem Classification Problem Date Documented Date Episodic/Chronic Abdominal hernia (20 sources) Umbilical hernia; Translations: [Umbilical hernia without obstruction or gangrene] Onset: 06-08-2012 06-08-2012 Episodic Abdominal pain (20 sources) Abdominal pain; Translations: [Unspecified abdominal pain] Onset: 05-23-2024 01-05-2022 Episodic Administrative/social admission (20 sources) Discharge status; Translations: [Encounter for administrative examinations, unspecified] Onset: 02-09-2019 02-09-2019 Episodic Coagulation and hemorrhagic disorders (20 sources) Thrombocytopenic disorder; Translations: [Thrombocytopenia, unspecified] Onset: 02-14-2019 Resolved: 02-15-2019 02-15-2019 Chronic Coronary atherosclerosis and other heart disease (14 sources) Presence of aortocoronary bypass graft; Translations: [Aortocoronary bypass status] Onset: 02-12-2019 Episodic Diabetes mellitus without complication (20 sources) [...] neoplasm of respiratory organs] Onset: 03-12-2024 Episodic Residual codes; unclassified (20 sources) Transition [...] Test Name Value Interpretation Reference Range Facility CBC W/Diff, Automatedon 10-1 Absolute Lymph 0.95 X10 3/uL Normal 0.83-4.51 [facility] Comment on above: Performed By: #### L 100.0100 ####[facility] [address] [place], [address] Absolute Neut 4.1 X10 3/uL Normal 2.0-7.7 [facility] Comment on above: Performed By: #### L 100.0100 ####[facility] [address] [place], [address] Basophils/100 WBC (Bld) 0.7 % Normal 0-1 [facility] Comment on above: Performed By: #### L 100.0100 ####[facility] [address] [place], [address] Eosinophils/100 WBC (Bld) 2.7 % Normal 0-5 [facility] Comment on above: Performed By: #### L 100.0100 ####[facility] [address] [place], [address] Erythrocyte distribution width (RBC) [Ratio] 15.6 % High 11.6-14.6 [facility] Comment on above: Performed By: #### L 100.0100 ####[facility] [address] [place], [address] Hematocrit (Bld) [Volume fraction] 27.0 % Low 40-54 [facility] Comment on above: Performed By: #### L 100.0100 ####[facility] [address] [place], [address] Hemoglobin (Bld) [Mass/Vol] 9.2 g/dL Low 13.0-16.5 [facility] Comment on above: Performed By: #### L 100.0100 ####[facility] [address] [place], [address] IG% 0.800 Normal 0.0-0.9 [facility] Comment on above: Result Comment: IG% - Immature Granulocytes (promyelocytes, myelocytes andmetamyelocytes) > 1% indicates that a LEFT SHIFT is Present. Performed By: #### L 100.0100 ####[facility] [address] [place], [address] Lymphocytes/100 WBC (Bld) 15.8 % Low 19-41 [facility] Comment on above: Performed By: #### L 100.0100 ####[facility] [address] [place], [address] MCH (RBC) [Entitic mass] 31.9 pg Normal 27.0-32.0 [facility] Comment on above: Performed By: #### L 100.0100 ####[facility] [address] [place], [address] MCHC (RBC) [Mass/Vol] 34.1 g/dL Normal 32-36 [facility] Comment on above: Performed By: #### L 100.0100 ####[facility] [address] [place], [address] MCV (RBC) [Entitic vol] 93.8 fL Normal 80-94 [facility] Comment on above: Performed By: #### L 100.0100 ####[facility] [address] [place], [address] Monocytes/100 WBC (Bld) 12.0 % High 0-10 [facility] Comment on above: Performed By: #### L 100.0100 ####[facility] [address] [place], [address] Neutrophils/100 WBC (Bld) 68.0 % Normal 47-70 [facility] Comment on above: Performed By: #### L 100.0100 ####[facility] [address] [place], [address] Nucleated RBC (Bld) [#/Vol] 0 10*3/uL Normal 0-5 [facility] Comment on above: Performed By: #### L 100.0100 ####[facility] [address] [place], [address] Platelet mean volume (Bld) [Entitic vol] 9.2 fL Normal 6.2-12.0 [facility] Comment on above: Performed By: #### L 100.0100 ####[facility] [address] [place], [address] Platelets (Bld) [#/Vol] 104 10*3/uL Low 150-450 [facility] Comment on above: Performed By: #### L 100.0100 ####[facility] [address] [place], [address] RBC (Bld) [#/Vol] 2.88 10*6/uL Low 4.6-6.2 [facility] Comment on above: Performed By: #### L 100.0100 ####[facility] [address] [place], [address] RDW SD 50.7 fl High 35.1-43.9 [facility] Comment on above: Performed By: #### L 100.0100 ####[facility] [address] [place], [address] WBC (Bld) [#/Vol] 6.0 10*3/uL Normal 4.4-11.0 [facility] Comment on above: Performed By: #### L 100.0100 ####[facility] [address] [place], [address] Discharge Instructionon 11-07 Discharge Instruction Normal [facility], Hemoglobin AND Hematocri ton 11-20-2024 Hematocrit (Bld) [Volume fraction] 20.8 % Low 40-54 [facility] Comment on above: Performed By: #### L 100.0600 ####[facility] [address] [place], [address] Hemoglobin (Bld) [Mass/Vol] 6.8 g/dL Low 13.0-16.5 [facility] Comment on above: Performed By: #### L 100.0600 ####[facility] [address] [place], [address] Basic Metabolic Profile (BMP )on 11-19-2024 BUN/CRE 39.7 RATIO High 10-20 [facility] Comment on above: Performed By: #### L 500.2500, L100.0500 ####[facility] [address] [place], [address] Calcium [Mass/Vol] 8.0 mg/dL Normal 7.6-11.0 [facility] Comment on above: Performed By: #### L 500.2500, L100.0500 ####[facility] [address] [place], [address] Chloride [Moles/Vol] 110 mmol/L High 98-108 [facility] Comment on above: Performed By: #### L 500.2500, L100.0500 ####[facility] [address] [place], [address] CO2 [Moles/Vol] 21.7 mmol/L Normal 21.0-32.0 [facility] Comment on above: Performed By: #### L 500.2500, L100.0500 ####[facility] [address] [place], [address] Creatinine [Mass/Vol] 1.59 mg/dL High 0.70-1.20 [facility] Comment on above: Performed By: #### L 500.2500, L100.0500 ####[facility] [address] [place], [address] ECRCL 36.32 ml/min Low 50-250 [facility] Comment on above: Performed By: #### L 500.2500, L100.0500 ####[facility] [address] [place], [address] GAP 8 Normal 5-15 [facility] Comment on above: Performed By: #### L 500.2500, L100.0500 ####[facility] [address] [place], [address] GFR/1.73 sq M.predicted among non-blacks MDRD (S/P/Bld) [Vol rate/Area] 45 mL/min/{1.73_m2} Low >60 [facility] Comment on above: Result Comment: mL/m in/1.73m2 CKD-EPI Creatinine Equation (2020) Performed By: #### L 500.2500, L100.0500 ####[facility] [address] [place], [address] Glucose [Mass/Vol] 111 mg/dL High 70-99 [facility] Comment on above: Performed By: #### L 500.2500, L100.0500 ####[facility] [address] [place], [address] Potassium [Moles/Vol] 4.8 mmol/L Normal 3.3-5.1 [facility] Comment on above: Performed By: #### L 500.2500, L100.0500 ####[facility] [address] [place], [address] Sodium [Moles/Vol] 139 mmol/L Normal 133-145 [facility] Comment on above: Performed By: #### L 500.2500, L100.0500 ####[facility] [address] [place], [address] Urea nitrogen [Mass/Vol] 63 mg/dL High 4-19 [facility] Comment on above: Performed By: #### L 500.2500, L100.0500 ####[facility] [address] [place], [address] CBC-Complete Blood Cnt No Di ffon 11-19-2024 Erythrocyte distribution width (RBC) [Ratio] 16.0 % High 11.6-14.6 [facility] Comment on above: Performed By: #### L 500.2500, L100.0500 ####[facility] [address] [place], [address] Hematocrit (Bld) [Volume fraction] 21.9 % Low 40-54 [facility] Comment on above: Performed By: #### L 500.2500, L100.0500 ####[facility] [address] [place], [address] Hemoglobin (Bld) [Mass/Vol] 7.1 g/dL Low 13.0-16.5 [facility] Comment on above: Performed By: #### L 500.2500, L100.0500 ####[facility] [address] [place], [address] MCH (RBC) [Entitic mass] 30.3 pg Normal 27.0-32.0 [facility] Comment on above: Performed By: #### L 500.2500, L100.0500 ####[facility] [address] [place], [address] MCHC (RBC) [Mass/Vol] 32.4 g/dL Normal 32-36 [facility] Comment on above: Performed By: #### L 500.2500, L100.0500 ####[facility] [address] [place], [address] MCV (RBC) [Entitic vol] 93.6 fL Normal 80-94 [facility] Comment on above: Performed By: #### L 500.2500, L100.0500 ####[facility] [address] [place], [address] Platelet mean volume (Bld) [Entitic vol] 9.0 fL Normal 6.2-12.0 [facility] Comment on above: Performed By: #### L 500.2500, L100.0500 ####[facility] [address] [place], [address] Platelets (Bld) [#/Vol] 117 10*3/uL Low 150-450 [facility] Comment on above: Performed By: #### L 500.2500, L100.0500 ####[facility] [address] [place], [address] RBC (Bld) [#/Vol] 2.34 10*6/uL Low 4.6-6.2 [facility] Comment on above: Performed By: #### L 500.2500, L100.0500 ####[facility] [address] [place], [address] RDW SD 53.4 fl High 35.1-43.9 [facility] Comment on above: Performed By: #### L 500.2500, L100.0500 ####[facility] [address] [place], [address] WBC (Bld) [#/Vol] 6.0 10*3/uL Normal 4.4-11.0 [facility] Comment on above: Performed By: #### L 500.2500, L100.0500 ####[facility] [address] [place], [address] CNPNon 11-19-2024 CNPN Telephone (HEMAWS) ABELARDO IVOYR ([id number]) 1950 Date Time Provider Department 11/19/24 LAKEISHA DAWKINSAWS During your visit today, we recorded the following information about you: Chelsea Gutierres 11/19/2024 8:26 AM Signed Daughter called and cancelled Dr. Banks appointment for today. Advised patient is in the hospital and waiting for transfer to [facility] Matthew Cueto RN 11/19/2024 9:29 AM Signed Thank you. Added to hospital list. ANGELA Chen Amber, RN 11/20/2024 1:11 PM Addendum Per [facility], transfer was cancelled. Per [facility] records, patient was admitted for a recurrent GI bleed. Subjective Patient was seen and examined today, he underwent an EGD which revealed an oozing duodenal ulcer with pigmented material-clips were placed, there was also noted to be edema and some erosion and erythema at the surgical anastomosis in the duodenum. This was treated with argon plasma coagulation, I did talk with gastroenterology and they did not feel the patient needed to be transferred to tertiary facility at this time and it was discussed with the patient and his family and they were okay with staying here at the hospital. Matthew Gu RN Allergies As of Date: 11/19/2024 (No Known Allergies) Date Reviewed: 11/09/2024 Reviewed by: Cristel Cantor RN - Fully Assessed Reason for Visit: Patient Update [1234] Prescriptions as of 11/20/2024 - pantoprazole DR (PROTONIX) 40 mg tablet Take 1 tablet by mouth two times a day before meals at 6 am and 4 pm. - aspirin 81 mg chewable tablet (Mar Hold) Take 1 tablet by mouth once daily. Patient should start on November 12, 2024. - ondansetron (ZOFRAN) 8 mg tablet Take [...] 5 mg by mouth once daily. - cnbqsmwrooi-mdkysnfvp-p ilanter (TRELEGY ELLIPTA) 200-62.5-25 mcg inhalation powder Inhale 1 puff as instructed once daily. - acetaminophen (TYLENOL) 325 mg tablet Take 2 tablets by mouth every 4 hours. - rosuvastatin (CRESTOR) 5 mg tablet Take 5 mg by mouth daily at bedtime. - albuterol HFA (PROAIR HFA) 90 mcg/actuation inhaler Inhale 2 Puffs as instructed every 4 hours as needed for Wheezing/Shortness of Breath. - metoprolol tartrate, short acting, (LOPRESSOR) 25 mg tablet Take 0.5 tablets by mouth every 12 hours. Problem List As Of Date 11/19/2024 Noted Resolved CONTUSION OF FOREARM [S50.10XA] 08/09/2005 [...] 02/12/2019 Acute blood loss anemia [D62] 02/12/2019 Stress hyperglycemia [R73.9] 02/12/2019 12/30/2021 Fluid overload [E87.70] 02/14/2019 Thrombocytopenia (HCC) [D69.6] 02/14/2019 02/15/2019 Postoperative anemia [D64.9] 02/14/2019 02/15/2019 Transition of care performed with sharing of cl*02/15/2019 Current smoker [F17.200] 02/17/2019 Juxtarenal ruptured abdominal aortic aneurysm (*12/28/2021 Hx of CABG [Z95.1] 12/28/2021 Centrilobular emphysema (HCC) [J43.2] 12/28/2021 Duodenal ulcer [K26.9] 12/28/2021 Postoperative pain [G89.18] 12/29/2021 Red blood cell antibody positive [R76.89] 12/30/2021 Type 2 diabetes mellitus without complication, *08/16/2024 CKD (chronic kidney disease) [N18.9] 08/16/2024 Malignant neoplasm of urinary bladder (HCC) [C6*09/05/2024 Upper GI bleed [K92.2] 11/08/2024 Acute GI bleeding [K92.2] 11/08/2024 Pressure injury of buttock, stage 1 [L89.301] 11/08/2024 Acute cystitis without hematuria [N30.00] 11/08/2024 Chronic hypoxic respiratory failure (HCC) [J96.*11/10/2024 Lung nodules [R91.8] 11/10/2024 Chronic obstructive pulmonary disease (HCC) [J4*11/10/2024 Dysuria [R30.0] 11/10/2024 Encounter Status:Closed by MATTHEW GU on 11/19/24 Normal [facility] EGD Reporton 11-19-2024 EGD Report Normal [facility] MR/CON.PCM.GIon 11-19-2024 MR/CON.PCM.GI Normal [facility] MR/OP.PROVATon 11-19-2024 MR/OP.PROVAT Normal [facility] MR/POSTOP.ANEon 11-19-2024 MR/POSTOP.ANE Normal [facility] MR/VXPSRCYZ1qa 11-19-2024 MR/POSTOPAN2 Normal [facility] Urine Cultureon 11-19-2024 URC Culture exhibits no growth. Normal [facility] Comment on above: Performed By: #### M 100.2200 ####[facility] [address] [place], [address] ABORh Blood Type, Patienton 11-18-2024 ABO and Rh group Nom (Bld) Blood group A Rh(D) positive [facility] Comment on above: Order Comment: A Performed By: #### M 100.7900, BtABORH, BTS, L300.4310, L300.3900, BLRBC2 ####[facility] [address] [place], [address] PSPLG8nz 11-18-2024 LRBC2 Normal Neg [facility] Comment on above: Result Comment: [id number] OP LRBC2 PRSMD TRFSD 11/18/24 0404 Performed By: #### M 100.7900, BtABORH, BTS, L300.4310, L300.3900, BLRBC2 ####[facility] [address] [place], [address] BRCon 11-18-2024 RC Normal [facility] Comment on above: Result Comment: [id number] AN RC TRANSFUSED 11/19/24 1320 Performed By: #### B RC ####[facility] [address] [place], [address] Result Comment: [id number] AP RC TRANSFUSED 11/20/24 [id number] AP RC TRANSFUSED 11/20/24 1621 Result Comment: [id number] AP RC TRANSFUSED 11/18/24 [id number] AP RC TRANSFUSED 11/18/24 0344 Basic Metabolic Profile (BMP )on 11-18-2024 BUN/CRE 38.9 RATIO High 10-20 [facility] Comment on above: Performed By: #### L 100.0100, L500.2500 ####[facility] [address] [place], [address] Calcium [Mass/Vol] 8.0 mg/dL Normal 7.6-11.0 [facility] Comment on above: Performed By: #### L 100.0100, L500.2500 ####[facility] [address] [place], [address] Chloride [Moles/Vol] 109 mmol/L High 98-108 [facility] Comment on above: Performed By: #### L 100.0100, L500.2500 ####[facility] [address] [place], [address] CO2 [Moles/Vol] 22.1 mmol/L Normal 21.0-32.0 [facility] Comment on above: Performed By: #### L 100.0100, L500.2500 ####[facility] [address] [place], [address] Creatinine [Mass/Vol] 1.60 mg/dL High 0.70-1.20 [facility] Comment on above: Performed By: #### L 100.0100, L500.2500 ####[facility] [address] [place], [address] ECRCL 36.55 ml/min Low 50-250 [facility] Comment on above: Performed By: #### L 100.0100, L500.2500 ####[facility] [address] [place], [address] GAP 8 Normal 5-15 [facility] Comment on above: Performed By: #### L 100.0100, L500.2500 ####[facility] [address] [place], [address] GFR/1.73 sq M.predicted among non-blacks MDRD (S/P/Bld) [Vol rate/Area] 45 mL/min/{1.73_m2} Low >60 [facility] Comment on above: Result Comment: mL/m in/1.73m2 CKD-EPI Creatinine Equation (2020) Performed By: #### L 100.0100, L500.2500 ####[facility] [address] [place], [address] Glucose [Mass/Vol] 112 mg/dL High 70-99 [facility] Comment on above: Performed By: #### L 100.0100, L500.2500 ####[facility] [address] [place], [address] Potassium [Moles/Vol] 4.9 mmol/L Normal 3.3-5.1 [facility] Comment on above: Performed By: #### L 100.0100, L500.2500 ####[facility] [address] [place], [address] Sodium [Moles/Vol] 139 mmol/L Normal 133-145 [facility] Comment on above: Performed By: #### L 100.0100, L500.2500 ####[facility] [address] [place], [address] Urea nitrogen [Mass/Vol] 62 mg/dL High 4-19 [facility] Comment on above: Performed By: #### L 100.0100, L500.2500 ####[facility] [address] [place], [address] BUN/CRE 34.2 RATIO High 10-20 [facility] Comment on above: Performed By: #### L 100.0100, L500.2500, L503.6005 ####[facility] [address] [place], [address] Calcium [Mass/Vol] 8.4 mg/dL Normal 7.6-11.0 [facility] Comment on above: Performed By: #### L 100.0100, L500.2500, L503.6005 ####[facility] [address] [place], [address] Chloride [Moles/Vol] 104 mmol/L Normal 98-108 [facility] Comment on above: Performed By: #### L 100.0100, L500.2500, L503.6005 ####[facility] [address] [place], [address] CO2 [Moles/Vol] 21.7 mmol/L Normal 21.0-32.0 [facility] Comment on above: Performed By: #### L 100.0100, L500.2500, L503.6005 ####[facility] [address] [place], [address] Creatinine [Mass/Vol] 1.89 mg/dL High 0.70-1.20 [facility] Comment on above: Performed By: #### L 100.0100, L500.2500, L503.6005 ####[facility] [address] [place], [address] ECRCL 30.94 ml/min Low 50-250 [facility] Comment on above: Performed By: #### L 100.0100, L500.2500, L503.6005 ####[facility] [address] [place], [address] GAP 13 Normal 5-15 [facility] Comment on above: Performed By: #### L 100.0100, L500.2500, L503.6005 ####[facility] [address] [place], [address] GFR/1.73 sq M.predicted among non-blacks MDRD (S/P/Bld) [Vol rate/Area] 37 mL/min/{1.73_m2} Low >60 [facility] Comment on above: Result Comment: mL/m in/1.73m2 CKD-EPI Creatinine Equation (2020) Performed By: #### L 100.0100, L500.2500, L503.6005 ####[facility] [address] [place], [address] Glucose [Mass/Vol] 182 mg/dL High 70-99 [facility] Comment on above: Performed By: #### L 100.0100, L500.2500, L503.6005 ####[facility] [address] [place], [address] Potassium [Moles/Vol] 5.3 mmol/L High 3.3-5.1 [facility] Comment on above: Performed By: #### L 100.0100, L500.2500, L503.6005 ####[facility] [address] [place], [address] Sodium [Moles/Vol] 138 mmol/L Normal 133-145 [facility] Comment on above: Performed By: #### L 100.0100, L500.2500, L503.6005 ####[facility] [address] [place], [address] Urea nitrogen [Mass/Vol] 65 mg/dL High 4-19 [facility] Comment on above: Performed By: #### L 100.0100, L500.2500, L503.6005 ####[facility] [address] [place], [address] CBC W/Diff, Automatedon 10-1 Absolute Lymph 0.93 X10 3/uL Normal 0.83-4.51 [facility] Comment on above: Performed By: #### L 100.0100, L500.2500 ####[facility] [address] [place], [address] Absolute Neut 6.3 X10 3/uL Normal 2.0-7.7 [facility] Comment on above: Performed By: #### L 100.0100, L500.2500 ####[facility] [address] [place], [address] Basophils/100 WBC (Bld) 0.5 % Normal 0-1 [facility] Comment on above: Performed By: #### L 100.0100, L500.2500 ####[facility] [address] [place], [address] Eosinophils/100 WBC (Bld) 0.7 % Normal 0-5 [facility] Comment on above: Performed By: #### L 100.0100, L500.2500 ####[facility] [address] [place], [address] Erythrocyte distribution width (RBC) [Ratio] 16.1 % High 11.6-14.6 [facility] Comment on above: Performed By: #### L 100.0100, L500.2500 ####[facility] [address] [place], [address] Hematocrit (Bld) [Volume fraction] 26.3 % Low 40-54 [facility] Comment on above: Performed By: #### L 100.0100, L500.2500 ####[facility] [address] [place], [address] Hemoglobin (Bld) [Mass/Vol] 8.7 g/dL Low 13.0-16.5 [facility] Comment on above: Performed By: #### L 100.0100, L500.2500 ####[facility] [address] [place], [address] IG% 0.600 Normal 0.0-0.9 [facility] Comment on above: Result Comment: IG% - Immature Granulocytes (promyelocytes, myelocytes andmetamyelocytes) > 1% indicates that a LEFT SHIFT is Present. Performed By: #### L 100.0100, L500.2500 ####[facility] [address] [place], [address] Lymphocytes/100 WBC (Bld) 11.4 % Low 19-41 [facility] Comment on above: Performed By: #### L 100.0100, L500.2500 ####[facility] [address] [place], [address] MCH (RBC) [Entitic mass] 31.0 pg Normal 27.0-32.0 [facility] Comment on above: Performed By: #### L 100.0100, L500.2500 ####[facility] [address] [place], [address] MCHC (RBC) [Mass/Vol] 33.1 g/dL Normal 32-36 [facility] Comment on above: Performed By: #### L 100.0100, L500.2500 ####[facility] [address] [place], [address] MCV (RBC) [Entitic vol] 93.6 fL Normal 80-94 [facility] Comment on above: Performed By: #### L 100.0100, L500.2500 ####[facility] [address] [place], [address] Monocytes/100 WBC (Bld) 9.4 % Normal 0-10 [facility] Comment on above: Performed By: #### L 100.0100, L500.2500 ####[facility] [address] [place], [address] Neutrophils/100 WBC (Bld) 77.4 % High 47-70 [facility] Comment on above: Performed By: #### L 100.0100, L500.2500 ####[facility] [address] [place], [address] Nucleated RBC (Bld) [#/Vol] 0 10*3/uL Normal 0-5 [facility] Comment on above: Performed By: #### L 100.0100, L500.2500 ####[facility] [address] [place], [address] Platelet mean volume (Bld) [Entitic vol] 8.8 fL Normal 6.2-12.0 [facility] Comment on above: Performed By: #### L 100.0100, L500.2500 ####[facility] [address] [place], [address] Platelets (Bld) [#/Vol] 134 10*3/uL Low 150-450 [facility] Comment on above: Performed By: #### L 100.0100, L500.2500 ####[facility] [address] [place], [address] RBC (Bld) [#/Vol] 2.81 10*6/uL Low 4.6-6.2 [facility] Comment on above: Performed By: #### L 100.0100, L500.2500 ####[facility] [address] [place], [address] RDW SD 53.8 fl High 35.1-43.9 [facility] Comment on above: Performed By: #### L 100.0100, L500.2500 ####[facility] [address] [place], [address] WBC (Bld) [#/Vol] 8.2 10*3/uL Normal 4.4-11.0 [facility] Comment on above: Performed By: #### L 100.0100, L500.2500 ####[facility] [address] [place], [address] Hemoglobin (Bld) [Mass/Vol] 6.0 g/dL Invalid Interpretation Code 13.0-16.5 [facility] Comment on above: Result Comment: CRIT ICAL VALUE CALLED TO [id number]/12/25 0219 Sherif Aranda Kaplan.RESULTS READ BACK BY SAME. Performed By: #### L 100.0100, L500.2500, L503.6005 ####[facility] [address] [place], [address] Absolute Lymph 1.56 X10 3/uL Normal 0.83-4.51 [facility] Comment on above: Performed By: #### L 100.0100, L500.2500, L503.6005 ####[facility] [address] [place], [address] Absolute Neut 8.2 X10 3/uL High 2.0-7.7 [facility] Comment on above: Performed By: #### L 100.0100, L500.2500, L503.6005 ####[facility] [address] [place], [address] Basophils/100 WBC (Bld) 0.4 % Normal 0-1 [facility] Comment on above: Performed By: #### L 100.0100, L500.2500, L503.6005 ####[facility] [address] [place], [address] Eosinophils/100 WBC (Bld) 0.8 % Normal 0-5 [facility] Comment on above: Performed By: #### L 100.0100, L500.2500, L503.6005 ####[facility] [address] [place], [address] Erythrocyte distribution width (RBC) [Ratio] 16.4 % High 11.6-14.6 [facility] Comment on above: Performed By: #### L 100.0100, L500.2500, L503.6005 ####[facility] [address] [place], [address] Hematocrit (Bld) [Volume fraction] 19.5 % Low 40-54 [facility] Comment on above: Performed By: #### L 100.0100, L500.2500, L503.6005 ####[facility] [address] [place], [address] IG% 0.800 Normal 0.0-0.9 [facility] Comment on above: Result Comment: IG% - Immature Granulocytes (promyelocytes, myelocytes andmetamyelocytes) > 1% indicates that a LEFT SHIFT is Present. Performed By: #### L 100.0100, L500.2500, L503.6005 ####[facility] [address] [place], [address] Lymphocytes/100 WBC (Bld) 13.9 % Low 19-41 [facility] Comment on above: Performed By: #### L 100.0100, L500.2500, L503.6005 ####[facility] [address] [place], [address] MCH (RBC) [Entitic mass] 30.6 pg Normal 27.0-32.0 [facility] Comment on above: Performed By: #### L 100.0100, L500.2500, L503.6005 ####[facility] [address] [place], [address] MCHC (RBC) [Mass/Vol] 30.8 g/dL Low 32-36 [facility] Comment on above: Performed By: #### L 100.0100, L500.2500, L503.6005 ####[facility] [address] [place], [address] MCV (RBC) [Entitic vol] 99.5 fL High 80-94 [facility] Comment on above: Performed By: #### L 100.0100, L500.2500, L503.6005 ####[facility] [address] [place], [address] Monocytes/100 WBC (Bld) 10.9 % High 0-10 [facility] Comment on above: Performed By: #### L 100.0100, L500.2500, L503.6005 ####[facility] [address] [place], [address] Neutrophils/100 WBC (Bld) 73.2 % High 47-70 [facility] Comment on above: Performed By: #### L 100.0100, L500.2500, L503.6005 ####[facility] [address] [place], [address] Nucleated RBC (Bld) [#/Vol] 0 10*3/uL Normal 0-5 [facility] Comment on above: Performed By: #### L 100.0100, L500.2500, L503.6005 ####[facility] [address] [place], [address] Platelet mean volume (Bld) [Entitic vol] 9.0 fL Normal 6.2-12.0 [facility] Comment on above: Performed By: #### L 100.0100, L500.2500, L503.6005 ####[facility] [address] [place], [address] Platelets (Bld) [#/Vol] 239 10*3/uL Normal 150-450 [facility] Comment on above: Performed By: #### L 100.0100, L500.2500, L503.6005 ####[facility] [address] [place], [address] RBC (Bld) [#/Vol] 1.96 10*6/uL Low 4.6-6.2 [facility] Comment on above: Performed By: #### L 100.0100, L500.2500, L503.6005 ####[facility] [address] [place], [address] RDW SD 59.5 fl High 35.1-43.9 [facility] Comment on above: Performed By: #### L 100.0100, L500.2500, L503.6005 ####[facility] [address] [place], [address] WBC (Bld) [#/Vol] 11.2 10*3/uL High 4.4-11.0 [facility] Comment on above: Performed By: #### L 100.0100, L500.2500, L503.6005 ####[facility] [address] [place], [address] CTA Abd/Pelvis W/WO Contrast on 11-18-2024 CTA Abd/Pelvis W/WO Contrast Normal [facility] Chest 1 View (Portable)on Chest 1 View (Portable) Normal [facility] Emergency Department Summary on 11-18-2024 Emergency Department Summary Normal [facility] H AND P Exam - Hospitaliston 11-18-2024 H&P Exam - Hospitalist Normal [facility] Lactic Acidon 11-18-2024 Lactate [Moles/Vol] mmol/L Normal 0.0-2.0 [facility] Comment on above: Performed By: #### L 503.6005 ####[facility] [address] [place], [address] Lactate [Moles/Vol] 1.1 mmol/L Normal 0.0-2.0 [facility] Comment on above: Order Comment: Y Performed By: #### L 503.6005 ####[facility] [address] [place], [address] Lactate [Moles/Vol] 3.7 mmol/L Invalid Interpretation Code 0.0-2.0 [facility] Comment on above: Order Comment: Y Result Comment: Crit ical Result(s) Called at: 0309 by:??PRABHAKAR HAVEN TO Yue read back by same. Performed By: #### L 100.0100, L500.2500, L503.6005 ####[facility] [address] [place], [address] Partial Thromboplast Timeon 11-18-2024 aPTT Coag (Bld) [Time] 23.8 s Low 24.1-36.2 [facility] Comment on above: Performed By: #### M 100.7900, BtABORH, BTS, L300.4310, L300.3900, BLRBC2 ####[facility] [address] [place], [address] Prothrombin Time w/INRon INR Coag (PPP) [Relative time] 1.0 {INR} Normal [facility] Comment on above: Performed By: #### M 100.7900, BtABORH, BTS, L300.4310, L300.3900, BLRBC2 ####[facility] [address] [place], [address] PT Coag (PPP) [Time] 13.8 s Normal 11.7-14.9 [facility] Comment on above: Performed By: #### M 100.7900, BtABORH, BTS, L300.4310, L300.3900, BLRBC2 ####[facility] [address] [place], [address] Stool Occult Blood iFOBon STOB Positive Normal [facility] Comment on above: Performed By: #### M 100.7900, BtABORH, BTS, L300.4310, L300.3900, BLRBC2 ####[facility] [address] [place], [address] Type AND Screenon 11-18-2024 Ab SCREEN GEL Negative Normal [facility] Comment on above: Order Comment: A Performed By: #### M 100.7900, BtABORH, BTS, L300.4310, L300.3900, BLRBC2 ####[facility] [address] [place], [address] Urinalysis, Completeon 11-18 BACTERIA 1+ /hpf Normal None Seen [facility] Comment on above: Order Comment: CLEAN CATCH Performed By: #### L 400.0001 ####[facility] [address] [place], [address] CAST,HYALINE 0-5 SEEN Normal 0-5 [facility] Comment on above: Order Comment: CLEAN CATCH Performed By: #### L 400.0001 ####[facility] [address] [place], [address] WBC 10-25 SEEN Normal 0-5 [facility] Comment on above: Order Comment: CLEAN CATCH Performed By: #### L 400.0001 ####[facility] [address] [place], [address] EPI,SQUAMOUS 0 SEEN Normal 0-5 [facility] Comment on above: Order Comment: CLEAN CATCH Performed By: #### L 400.0001 ####[facility] [address] [place], [address] Mucus Ql (Urine sed) 0 SEEN Normal [facility] Comment on above: Order Comment: CLEAN CATCH Performed By: #### L 400.0001 ####[facility] [address] [place], [address] RBC 0 SEEN Normal 0-5 [facility] Comment on above: Order Comment: CLEAN CATCH Performed By: #### L 400.0001 ####[facility] [address] [place], [address] Urine Cultureon 11-16-2024 [facility] Order Date: 11/15/24 Order Info: 630-4 - CUUR Culture exhibits no growth. Normal [facility] Comment on above: Performed By: #### M 100.2200 ####[facility] [address] [place], [address] CBC W/Diff, Automatedon 10-0 -2024 Absolute Lymph 0.83 X10 3/uL Normal 0.83-4.51 [facility] Comment on above: Order Comment: Order Date: 11/15/24Order Info: 0184-1 - CBCDOrder Info: 4679-7 - RETIC Performed By: #### L 500.4050, L100.0100, L100.9950, L503.6550, L503.6150 ####[facility] [address] [place], [address] Absolute Neut 4.9 X10 3/uL Normal 2.0-7.7 [facility] Comment on above: Order Comment: Order Date: 11/15/24Order Info: 0184-1 - CBCDOrder Info: 4679-7 - RETIC Performed By: #### L 500.4050, L100.0100, L100.9950, L503.6550, L503.6150 ####[facility] [address] [place], [address] Basophils/100 WBC (Bld) 0.8 % Normal 0-1 [facility] Comment on above: Order Comment: Order Date: 11/15/24Order Info: 0184- - CBCDOrder Info: 4679-7 - RETIC Performed By: #### L 500.4050, L100.0100, L100.9950, L503.6550, L503.6150 ####[facility] [address] [place], [address] Eosinophils/100 WBC (Bld) 2.1 % Normal 0-5 [facility] Comment on above: Order Comment: Order Date: 11/15/24Order Info: 0184-1 - CBCDOrder Info: 4679-7 - RETIC Performed By: #### L 500.4050, L100.0100, L100.9950, L503.6550, L503.6150 ####[facility] [address] [place], [address] Erythrocyte distribution width (RBC) [Ratio] 15.8 % High 11.6-14.6 [facility] Comment on above: Order Comment: Order Date: 11/15/24Order Info: 0184-1 - CBCDOrder Info: 4679-7 - RETIC Performed By: #### L 500.4050, L100.0100, L100.9950, L503.6550, L503.6150 ####[facility] [address] [place], [address] Hematocrit (Bld) [Volume fraction] 31.1 % Low 40-54 [facility] Comment on above: Order Comment: Order Date: 11/15/24Order Info: 0184- - CBCDOrder Info: 4679-7 - RETIC Performed By: #### L 500.4050, L100.0100, L100.9950, L503.6550, L503.6150 ####[facility] [address] [place], [address] Hemoglobin (Bld) [Mass/Vol] 9.8 g/dL Low 13.0-16.5 [facility] Comment on above: Order Comment: Order Date: 11/15/24Order Info: 0184-1 - CBCDOrder Info: 4679-7 - RETIC Performed By: #### L 500.4050, L100.0100, L100.9950, L503.6550, L503.6150 ####[facility] [address] [place], [address] IG% 0.500 Normal 0.0-0.9 [facility] Comment on above: Order Comment: Order Date: 11/15/24Order Info: 0184-1 - CBCDOrder Info: 4679-7 - RETIC Result Comment: IG% - Immature Granulocytes (promyelocytes, myelocytes andmetamyelocytes) > 1% indicates that a LEFT SHIFT is Present. Performed By: #### L 500.4050, L100.0100, L100.9950, L503.6550, L503.6150 ####[facility] [address] [place], [address] Lymphocytes/100 WBC (Bld) 12.5 % Low 19-41 [facility] Comment on above: Order Comment: Order Date: 11/15/24Order Info: 0184-1 - CBCDOrder Info: 4679-7 - RETIC Performed By: #### L 500.4050, L100.0100, L100.9950, L503.6550, L503.6150 ####[facility] [address] [place], [address] MCH (RBC) [Entitic mass] 30.5 pg Normal 27.0-32.0 [facility] Comment on above: Order Comment: Order Date: 11/15/24Order Info: 0184-1 - CBCDOrder Info: 4679-7 - RETIC Performed By: #### L 500.4050, L100.0100, L100.9950, L503.6550, L503.6150 ####[facility] [address] [place], [address] MCHC (RBC) [Mass/Vol] 31.5 g/dL Low 32-36 [facility] Comment on above: Order Comment: Order Date: 11/15/24Order Info: 0184-1 - CBCDOrder Info: 4679-7 - RETIC Performed By: #### L 500.4050, L100.0100, L100.9950, L503.6550, L503.6150 ####[facility] [address] [place], [address] MCV (RBC) [Entitic vol] 96.9 fL High 80-94 [facility] Comment on above: Order Comment: Order Date: 11/15/24Order Info: 0184-1 - CBCDOrder Info: 4679-7 - RETIC Performed By: #### L 500.4050, L100.0100, L100.9950, L503.6550, L503.6150 ####[facility] [address] [place], [address] Monocytes/100 WBC (Bld) 11.3 % High 0-10 [facility] Comment on above: Order Comment: Order Date: 11/15/24Order Info: 0184-1 - CBCDOrder Info: 4679-7 - RETIC Performed By: #### L 500.4050, L100.0100, L100.9950, L503.6550, L503.6150 ####[facility] [address] [place], [address] Neutrophils/100 WBC (Bld) 72.8 % High 47-70 [facility] Comment on above: Order Comment: Order Date: 11/15/24Order Info: 0184-1 - CBCDOrder Info: 4679-7 - RETIC Performed By: #### L 500.4050, L100.0100, L100.9950, L503.6550, L503.6150 ####[facility] [address] [place], [address] Nucleated RBC (Bld) [#/Vol] 0 10*3/uL Normal 0-5 [facility] Comment on above: Order Comment: Order Date: 11/15/24Order Info: 0184-1 - CBCDOrder Info: 4679-7 - RETIC Performed By: #### L 500.4050, L100.0100, L100.9950, L503.6550, L503.6150 ####[facility] [address] [place], [address] Platelet mean volume (Bld) [Entitic vol] 8.9 fL Normal 6.2-12.0 [facility] Comment on above: Order Comment: Order Date: 11/15/24Order Info: 0184-1 - CBCDOrder Info: 4679-7 - RETIC Performed By: #### L 500.4050, L100.0100, L100.9950, L503.6550, L503.6150 ####[facility] [address] [place], [address] Platelets (Bld) [#/Vol] 266 10*3/uL Normal 150-450 [facility] Comment on above: Order Comment: Order Date: 11/15/24Order Info: 0184-1 - CBCDOrder Info: 4679-7 - RETIC Performed By: #### L 500.4050, L100.0100, L100.9950, L503.6550, L503.6150 ####[facility] [address] [place], [address] RBC (Bld) [#/Vol] 3.21 10*6/uL Low 4.6-6.2 [facility] Comment on above: Order Comment: Order Date: 11/15/24Order Info: 0184-1 - CBCDOrder Info: 4679-7 - RETIC Performed By: #### L 500.4050, L100.0100, L100.9950, L503.6550, L503.6150 ####[facility] [address] [place], [address] RDW SD 55.6 fl High 35.1-43.9 [facility] Comment on above: Order Comment: Order Date: 11/15/24Order Info: 0184-1 - CBCDOrder Info: 4679-7 - RETIC Performed By: #### L 500.4050, L100.0100, L100.9950, L503.6550, L503.6150 ####[facility] [address] [place], [address] WBC (Bld) [#/Vol] 6.7 10*3/uL Normal 4.4-11.0 [facility] Comment on above: Order Comment: Order Date: 11/15/24Order Info: 0184-1 - CBCDOrder Info: 4679-7 - RETIC Performed By: #### L 500.4050, L100.0100, L100.9950, L503.6550, L503.6150 ####[facility] [address] [place], [place], [address] Comprehensive Metabolic Prof ilon 11-15-2024 Albumin [Mass/Vol] 3.8 g/dL Normal 3.4-4.8 [facility] Comment on above: Order Comment: Order Date: 11/15/24Order Info: 0786-1 - CMPOrder Info: 2497-05 - FEOrder Info: 2275-05 - LAURA Performed By: #### L 500.4050, L100.0100, L100.9950, L503.6550, L503.6150 ####[facility] [address] [place], [place], [address] Albumin/Globulin [Mass ratio] 1.4 {ratio} Normal 0.9-2.4 [facility] Comment on above: Order Comment: Order Date: 11/15/24Order Info: 0786- - CMPOrder Info: 2497-05 - FEOrder Info: 2275-05 - LAURA Performed By: #### L 500.4050, L100.0100, L100.9950, L503.6550, L503.6150 ####[facility] [address] [place], [address] ALK PHOS 64 U/L Normal 40-129 [facility] Comment on above: Order Comment: Order Date: 11/15/24Order Info: 0786- - CMPOrder Info: 2497-05 - FEOrder Info: 2275-05 - LAURA Performed By: #### L 500.4050, L100.0100, L100.9950, L503.6550, L503.6150 ####[facility] [address] [place], [address] ALT [Catalytic activity/Vol] 10 U/L Normal <=46 [facility] Comment on above: Order Comment: Order Date: 11/15/24Order Info: 785-02 - CMPOrder Info: 2497-05 - FEOrder Info: 2275-05 - LAURA Performed By: #### L 500.4050, L100.0100, L100.9950, L503.6550, L503.6150 ####[facility] [address] [place], [address] AST [Catalytic activity/Vol] 17 U/L Normal <=37 [facility] Comment on above: Order Comment: Order Date: 11/15/24Order Info: 785-02 - CMPOrder Info: 2497-05 - FEOrder Info: 2275-05 - LAURA Performed By: #### L 500.4050, L100.0100, L100.9950, L503.6550, L503.6150 ####[facility] [address] [place], [address] Bilirubin [Mass/Vol] 0.21 mg/dL Normal 0.00-1.30 [facility] Comment on above: Order Comment: Order Date: 11/15/24Order Info: 785-02 - CMPOrder Info: 2497-05 - FEOrder Info: 2275-05 - LAURA Performed By: #### L 500.4050, L100.0100, L100.9950, L503.6550, L503.6150 ####[facility] [address] [place], [address] BUN/CRE 15.4 RATIO Normal 10-20 [facility] Comment on above: Order Comment: Order Date: 11/15/24Order Info: 07 - CMPOrder Info: 2497-05 - FEOrder Info: 2275-05 - LAURA Performed By: #### L 500.4050, L100.0100, L100.9950, L503.6550, L503.6150 ####[facility] [address] [place], [address] Calcium [Mass/Vol] 8.8 mg/dL Normal 7.6-11.0 [facility] Comment on above: Order Comment: Order Date: 11/15/24Order Info: 0786-1 - CMPOrder Info: 2497-05 - FEOrder Info: 2275-05 - LAURA Performed By: #### L 500.4050, L100.0100, L100.9950, L503.6550, L503.6150 ####[facility] [address] [place], [address] Chloride [Moles/Vol] 102 mmol/L Normal 98-108 [facility] Comment on above: Order Comment: Order Date: 11/15/24Order Info: 0786-1 - CMPOrder Info: 2497-05 - FEOrder Info: 2275-05 - LAURA Performed By: #### L 500.4050, L100.0100, L100.9950, L503.6550, L503.6150 ####[facility] [address] [place], [address] CO2 [Moles/Vol] 25.2 mmol/L Normal 21.0-32.0 [facility] Comment on above: Order Comment: Order Date: 11/15/24Order Info: 0786-1 - CMPOrder Info: 2497-05 - FEOrder Info: 2275-05 - LAURA Performed By: #### L 500.4050, L100.0100, L100.9950, L503.6550, L503.6150 ####[facility] [address] [place], [address] Creatinine [Mass/Vol] 1.70 mg/dL High 0.70-1.20 [facility] Comment on above: Order Comment: Order Date: 11/15/24Order Info: 0786-1 - CMPOrder Info: 2497-05 - FEOrder Info: 2275-05 - LAURA Performed By: #### L 500.4050, L100.0100, L100.9950, L503.6550, L503.6150 ####[facility] [address] [place], [address] GAP 10 Normal 5-15 [facility] Comment on above: Order Comment: Order Date: 11/15/24Order Info: 0786-1 - CMPOrder Info: 2497-05 FEOrder Info: 2275-05 - LAURA Performed By: #### L 500.4050, L100.0100, L100.9950, L503.6550, L503.6150 ####[facility] [address] [place], [address] GFR/1.73 sq M.predicted among non-blacks MDRD (S/P/Bld) [Vol rate/Area] 42 mL/min/{1.73_m2} Low >60 [facility] Comment on above: Order Comment: Order Date: 11/15/24Order Info: 0786-1 - CMPOrder Info: 2497-05 FEOrder Info: 2275-05 - LAURA Result Comment: mL/m in/1.73m2 CKD-EPI Creatinine Equation (2020) Performed By: #### L 500.4050, L100.0100, L100.9950, L503.6550, L503.6150 ####[facility] [address] [place], [address] Globulin (S) [Mass/Vol] 2.7 g/dL Normal 2.2-4.2 [facility] Comment on above: Order Comment: Order Date: 11/15/24Order Info: 0786-1 - CMPOrder Info: 2497-05 FEOrder Info: 2275-05 - LAURA Performed By: #### L 500.4050, L100.0100, L100.9950, L503.6550, L503.6150 ####[facility] [address] [place], [address] Glucose [Mass/Vol] 100 mg/dL High 70-99 [facility] Comment on above: Order Comment: Order Date: 11/15/24Order Info: 07- - CMPOrder Info: 2497-05 - FEOrder Info: 2275-05 - LAURA Performed By: #### L 500.4050, L100.0100, L100.9950, L503.6550, L503.6150 ####[facility] [address] [place], [address] Potassium [Moles/Vol] 4.7 mmol/L Normal 3.3-5.1 [facility] Comment on above: Order Comment: Order Date: 11/15/24Order Info: 785- - CMPOrder Info: 2497-05 - FEOrder Info: 2275-05 - LAURA Performed By: #### L 500.4050, L100.0100, L100.9950, L503.6550, L503.6150 ####[facility] [address] [place], [place], [address] Sodium [Moles/Vol] 137 mmol/L Normal 133-145 [facility] Comment on above: Order Comment: Order Date: 11/15/24Order Info: 07 - CMPOrder Info: 2497-05 - FEOrder Info: 2275-05 - LAURA Performed By: #### L 500.4050, L100.0100, L100.9950, L503.6550, L503.6150 ####[facility] [address] [place], [address] T PROT 6.5 g/dL Normal 5.9-8.4 [facility] Comment on above: Order Comment: Order Date: 11/15/24Order Info: 07 - CMPOrder Info: 2497-05 - FEOrder Info: 2275-05 - LAURA Performed By: #### L 500.4050, L100.0100, L100.9950, L503.6550, L503.6150 ####[facility] [address] [place], [place], [address] Urea nitrogen [Mass/Vol] 26 mg/dL High 4-19 [facility] Comment on above: Order Comment: Order Date: 11/15/24Order Info: 0786- - CMPOrder Info: 2497-05 - FEOrder Info: 2275-05 - LAURA Performed By: #### L 500.4050, L100.0100, L100.9950, L503.6550, L503.6150 ####[facility] [address] [place], [place], [address] Ferritinon 11-15-2024 Ferritin [Mass/Vol] 128 ng/mL Normal 37-417 [facility] Comment on above: Order Comment: Order Date: 11/15/24Order Info: 0786- - CMPOrder Info: 2497-05 - FEOrder Info: 2275-05 - LAURA Performed By: #### L 500.4050, L100.0100, L100.9950, L503.6550, L503.6150 ####[facility] [address] [place], [place], [address] Ironon 11-15-2024 Iron [Mass/Vol] 47 ug/dL Low 65-175 [facility] Comment on above: Order Comment: Order Date: 11/15/24Order Info: 0786-1 - CMPOrder Info: 2497-05 - FEOrder Info: 2275-05 - LAURA Performed By: #### L 500.4050, L100.0100, L100.9950, L503.6550, L503.6150 ####[facility] [address] [place], [address] Retic Panelon 11-15-2024 IM RET FRACTION 21.50 High 3.00-15.90 [facility] Comment on above: Order Comment: Order Date: 11/15/24Order Info: 0184-1 - CBCDOrder Info: 4679-7 - RETIC Performed By: #### L 500.4050, L100.0100, L100.9950, L503.6550, L503.6150 ####[facility] [address] [place], [address] RET-HE 31.6 pg Normal 30-35 [facility] Comment on above: Order Comment: Order Date: 11/15/24Order Info: 0184-1 - CBCDOrder Info: 4679-7 - RETIC Performed By: #### L 500.4050, L100.0100, L100.9950, L503.6550, L503.6150 ####[facility] [address] [place], [address] Retic Count 3.05 High 0.5-1.5 [facility] Comment on above: Order Comment: Order Date: 11/15/24Order Info: 0184-1 - CBCDOrder Info: 4679-7 - RETIC Performed By: #### L 500.4050, L100.0100, L100.9950, L503.6550, L503.6150 ####[facility] [address] [place], [address] CNPNon 11-13-2024 CNPN Telephone (VAIBHAV) ABELARDO IVORY ([id number]) 1950 M Date Time Provider Department 11/13/24 MATTHEW GU During your visit today, we recorded the following information about you: Matthew Gu RN 11/13/2024 9:54 AM Signed DISCHARGE CALL BACK Today's date: November 13, 2024 Notified of Pt discharge by: Epic notification Patient discharged on 11/11/24 from [facility] to Home Primary Cancer Diagnosis: muscle invasive bladder cancer. Admitting Diagnosis: GI bleed Discharge Summary/SBAR reviewed: Yes Handoff Discussed with Transitional Hands Hanger: N/A Psychosocial Risk Factors: None If patient discharged to SNF/Rehab Facility, phone call completed to reinforce discharge instructions and follow up: N/A Call Disposition: Called patient and spoke with patient Patient identified by name and date of . YES Patient with symptom issues: Yes, still has urinary symptoms. Patient stated he is following up with his PCP on . Pain: pain with urination. Is patient followed by Palliative Medicine? No Palliative Medicine follow up: N/A Any new barriers to care identified? No Any new referrals needed? No Social Work Follow-Up visit scheduled? No Does the patient need interventions no or same day appointment: No MEDICATION ADHERENCE Patient discharged with prescriptions? Yes, PAUSE taking these medications aspirin 81 mg chewable tablet Wait to take this until: November 25, 2024 Resume per GI/PCP instruction. Take 1 tablet by mouth once daily. Patient should start on November 12, 2024. START taking these medications amoxicillin 500 mg capsule Commonly known as: AMOXIL Take 1 capsule by mouth every 8 hours for [address] 40 mg tablet Commonly known as: PROTONIX Take 1 tablet by mouth two times a day before meals at 6 am and 4 pm. Discharge prescriptions filled: Yes Patient understands when to take prescriptions: Yes FOLLOW UP Patient scheduled for follow-up appointment within 5 business days of discharge? Yes Patient reminded of follow-up appointment with PCP, 11/15/24 on : Yes Discussed: patient was discharged from the hospital. Patient stated he is feeling better, has had 1 BM since being home, denies blood in his stool. Reviewed d/c meds. Will discuss follow-up with Dr. Dawkins once he returns to the office. PATIENT EDUCATION / REINFORCEMENT Patient verbalizes understanding of when to seek Medical Attention? YES Patient verbalizes understanding of after hours and weekend phone number? YES ANGELA Chen Paul A, DO 11/13/2024 8:54 PM Signed When schedule permits with me or STATIONARY ENGINEER APPRENTICE. DO Allan Valdez Brandy 11/14/2024 9:41 AM Signed I called and spoke to Abelardo and scheduled him to see Kellie Robles CNP on Tuesday11/19/24 @ 8:00 am, prior to his 9:00 am appointment with that day as well Saira Cazares Allergies As of Date: 11/13/2024 (No Known Allergies) Date Reviewed: 11/09/2024 Reviewed by: Cristel Cantor RN - Fully Assessed Reason for Visit: Hands Hanger - Other [8429] Cmt: [facility] D/C Prescriptions as of 11/14/2024 - pantoprazole DR (PROTONIX) 40 mg tablet Take 1 tablet by mouth two times a day before meals at 6 am and 4 pm. - aspirin 81 mg chewable tablet (Mar Hold) Take 1 tablet by mouth once daily. Patient should start on November 12, 2024. - ondansetron (ZOFRAN) 8 mg tablet Take [...] 5 mg by mouth once daily. - fyakfihbyql-khjkqnvla-p ilanter (TRELEGY ELLIPTA) 200-62.5-25 mcg inhalation powder Inhale 1 puff as instructed once daily. - acetaminophen (TYLENOL) 325 mg tablet Take 2 tablets by mouth every 4 hours. - rosuvastatin (CRESTOR) 5 mg tablet Take 5 mg by mouth daily at bedtime. - albuterol HFA (PROAIR HFA) 90 mcg/actuation inhaler Inhale 2 Puffs as instructed every 4 hours as needed for Wheezing/Shortness of Breath. - metoprolol tartrate, short acting, (LOPRESSOR) 25 mg tablet Take 0.5 tablets by mouth every 12 hours. Problem List As Of Date 11/13/2024 Noted Resolved CONTUSION OF FOREARM [S50.10XA] 08/09/2005 08/09/2005 Umbilical hernia without mention of obstruction*06/08/2012 Bilateral inguinal hernia [K40.20] 06/08/2012 Carpal tunnel syndrome of right wrist [G56.01] 06/08/2012 Aortic stenosis [I35.0] Smoking history [Z87.891] 09/07/2012 Hematuria [R31.9] 09/07/2012 Abdominal aortic aneurysm (HCC) [I71.40] 09/07/2012 10/27/2012 Coronary artery disease involving coronary bypa*02/06/2019 Essential hypertension [I10] 02/06/2019 Hyperlipidemia [E78.5] 02/07/20 (more content not included)... Normal [facility] Basic metabolic 2000 panelon 11-11-2024 Anion gap [Moles/Vol] 13 mmol/L Normal 8-15 [facility] Comment on above: Order Comment: Speci men Type: BLOOD SPECIMEN Ordering Facility: [facility] Address: [address] [place] [address] Performed By: #### 2 4323-8, 2776-02, #### [facility] CLIA [id number] [address] [place] [address] [place] Calcium [Mass/Vol] 8.5 mg/dL Normal 8.5-10.2 [facility] Comment on above: Order Comment: Speci men Type: BLOOD SPECIMEN Ordering Facility: [facility] Address: [address] [place] [address] Performed By: #### 2 4323-8, 2776-02, #### [facility] CLIA [id number] [address] [place] [address] [place] Chloride [Moles/Vol] 102 mmol/L Normal 98-107 [facility] Comment on above: Order Comment: Speci men Type: BLOOD SPECIMEN Ordering Facility: [facility] Address: [address] [place] [address] Performed By: #### 2 4323-8, 2776-02, #### [facility] CLIA [id number] [address] [place] [address] [place] CO2 [Moles/Vol] 22 mmol/L Normal 22-30 [facility] Comment on above: Order Comment: Speci men Type: BLOOD SPECIMEN Ordering Facility: [facility] Address: [address] [place] [address] Performed By: #### 2 4323-8, 27708-07, #### [facility] CLIA [id number] [address] [place] [address] [place] Creatinine [Mass/Vol] 1.69 mg/dL High 0.73-1.22 [facility] Comment on above: Order Comment: Raul hutson Type: BLOOD SPECIMEN Ordering Facility: [facility] Address: [address] [place] [address] Performed By: #### 2 4323-8, 2777-1, 77337-8 #### [facility] CLIA [id number] [address] [place] eGFRcr SerPlBld CKD-EPI 2020 42 mL/min/1.73m??? Low >=60 [facility] Comment on above: Order Comment: Raul hutson Type: BLOOD SPECIMEN Ordering Facility: [facility] Address: [address] [place] [place] [address] Result Comment: Amy mated Glomerular Filtration Rate [...] reflect actual GFR. Performed By: #### 2 4323-8, 2777, 47364-2 #### [facility] CLIA [id number] [address] [place] [address] [place] OF [facility] Glucose [Mass/Vol] 91 mg/dL Normal 74-99 [facility] Comment on above: Order Comment: Raul hutson Type: BLOOD SPECIMEN Ordering Facility: [facility] Address: [address] [place] [address] Result Comment: The [place] Diabetes Association (ADA) provides guidance for cutoff [...] Standards of Medical Care in Diabetes 2016, [place] Diabetes Association. Diabetes Care. 2016.39(Suppl 1). Performed By: #### 2 4323-8, 27708-07, #### [facility] CLIA [id number] [address] [place] Potassium [Moles/Vol] 4.6 mmol/L Normal 3.7-5.1 [facility] Comment on above: Order Comment: Speci men Type: BLOOD SPECIMEN Ordering Facility: [facility] Address: [address] [place] [address] Performed By: #### 2 4323-8, 2776-02, #### [facility] CLIA [id number] [address] STATES OF [facility] Sodium [Moles/Vol] 137 mmol/L Normal 136-144 [facility] Comment on above: Order Comment: Speci men Type: BLOOD SPECIMEN Ordering Facility: [facility] Address: [address] [place] [address] Performed By: #### 2 4323-8, 2776-02, #### [facility] CLIA [id number] [address] [place] Urea nitrogen [Mass/Vol] 21 mg/dL Normal 9-24 [facility] Comment on above: Order Comment: Speci men Type: BLOOD SPECIMEN Ordering Facility: [facility] Address: [address] [place] [address] Performed By: #### 2 4323-8, 2776-02, #### [facility] CLIA [id number] [address] [place] CBC panel Auto (Bld)on 11-11 Erythrocyte distribution width (RBC) [Ratio] 15.9 % High 11.5-15.0 [facility] Comment on above: Order Comment: Speci men Type: BLOOD SPECIMENOrdering Facility: [facility] Address: [address] [place] [address] Performed By: #### 5 8410-2 ####[facility] [id number] [address] STATES [facility] Hematocrit (Bld) [Volume fraction] 29.6 % Low 39.0-51.0 [facility] Comment on above: Order Comment: Speci men Type: BLOOD SPECIMENOrdering Facility: [facility] Address: [address] [place] [address] Performed By: #### 5 8410-2 ####[facility] [id number] [address] OF [facility] Hemoglobin (Bld) [Mass/Vol] 9.6 g/dL Low 13.0-17.0 [facility] Comment on above: Order Comment: Speci men Type: BLOOD SPECIMENOrdering Facility: [facility] Address: [address] [place] [address] Performed By: #### 5 8410-2 ####[facility] [id number] [address] MCH (RBC) [Entitic mass] 30.8 pg Normal 26.0-34.0 [facility] Comment on above: Order Comment: Speci men Type: BLOOD SPECIMENOrdering Facility: [facility] Address: [address] [place] [address] Performed By: #### 5 8410-2 ####[facility] [id number] [address] [place] MCHC (RBC) [Mass/Vol] 32.4 g/dL Normal 30.5-36.0 [facility] Comment on above: Order Comment: Speci men Type: BLOOD SPECIMENOrdering Facility: [facility] Address: [address] [place] [address] Performed By: #### 5 8410-2 ####[facility] [id number] [address] OF [facility] MCV (RBC) [Entitic vol] 94.9 fL Normal 80.0-100.0 [facility] Comment on above: Order Comment: Speci men Type: BLOOD SPECIMENOrdering Facility: [facility] Address: [address] [place] [address] Performed By: #### 5 8410-2 ####[facility] [id number] [address] Nucleated RBC (Bld) [#/Vol] 10*3/uL Normal <0.01 [facility] Comment on above: Order Comment: Speci men Type: BLOOD SPECIMENOrdering Facility: [facility] Address: [address] [place] [address] Performed By: #### 5 8410-2 ####[facility] [id number] [address] OF [place] Platelet mean volume (Bld) [Entitic vol] 9.0 fL Normal 9.0-12.7 [facility] Comment on above: Order Comment: Speci men Type: BLOOD SPECIMENOrdering Facility: [facility] Address: [address] [place] [address] Performed By: #### 5 8410-2 ####[facility] [id number] [address] OF [place] Platelets (Bld) [#/Vol] 186 10*3/uL Normal 150-400 [facility] Comment on above: Order Comment: Speci men Type: BLOOD SPECIMENOrdering Facility: [facility] Address: [address] [place] [address] Performed By: #### 5 8410-2 ####[facility] [id number] [address] OF [facility] RBC (Bld) [#/Vol] 3.12 10*6/uL Low 4.20-6.00 [facility] Comment on above: Order Comment: Speci men Type: BLOOD SPECIMENOrdering Facility: [facility] Address: [address] [place] [address] Performed By: #### 5 8410-2 ####[facility] [id number] [address] OF [place] WBC (Bld) [#/Vol] 6.30 10*3/uL Normal 3.70-11.00 [facility] Comment on above: Order Comment: Speci men Type: BLOOD SPECIMENOrdering Facility: [facility] Address: [address] [place] [address] Performed By: #### 5 8410-2 ####[facility]IA [id number] [place] [address] [facility] [place] CNDSon 11-11-2024 CNDS HNO ID: [id number] Author: TANIA DE LUNA DO Service: Hospital Medicine Author Type: Physician Type: Discharge Summary Filed: 11/11/2024 15:21 Note Text: DISCHARGE SUMMARY PATIENT NAME: Abelardo Ivory Code Status: DNR-CCA, DNI Highest Readmission Risk Score: 26 The 30 day readmissions risk score is derived from an internally validated risk model which evaluates patient level characteristics, utilization history, medication orders and lab results up until the day of discharge. Patients with a score of 39 or above are considered highest risk for readmission. Specific patient level drivers will be listed at the bottom of the summary. Admission Information Admission Information ADMIT DATE: 11/07/2024 DISCHARGE DATE: 11/11/2024 MY DOCTORS AND MEDICAL TEAM: My Main Hospital Doctor: Tania De Luna DO Primary Care Provider: Padmini Carrasco MD My Medical Team Members: Treatment Team: Attending Provider: Tania De Luna DO Consulting: Breana Sanchez MD Primary Service: [place] GLADYS GARCIA MY CONDITION AT DISCHARGE: Stable REASON I WAS IN THE HOSPITAL: GI bleed SUMMARY OF WHAT HAPPENED WHILE I WAS IN THE HOSPITAL: Patient was admitted for GI bleed. 74 yo M male with PMHx of peptic ulcer disease, bladder cancer s/p reported TURP (currently undergoing chemo), hx of AAA s/p rupture, COPD, CAD s/p CABG, CKDIII who presented to [facility] on 11/07 from [place] with complaints of BRBPR at home. In the ED, systolics were reportedly in the 70s and underwent upper and lower endoscopies and found a spurting duodenal ulcer and a visible vessel that was injected and cauterized. He received 2 units of pRBCs for which his hemoglobin improved. He was admitted to the [facility] MICU for further monitoring due to acute blood loss. He did not require pressors. Gastroenterology was consulted, and did not recommend a repeat EGD this admission due to stable HANDH. Patient had presence of urinary symptoms and was found to have a UTI. He was started on vancomycin due to recent Enterococcus faecalis infection. Converted to oral amoxicillin to complete 3 total days. Transferred to regular medical floor. His first bowel movement had some dark stools which is expected given the bleeding during EGD. This should improved over the next 1-2 days with further bowel movements. HANDH has been stable. Advised to look for persistnt dark stools over the next few days or bright red blood he should call his doctor or go to ED immediately. GI recommend cbc in 1 week per PCP, minced and moist diet, GI follow up in 2 weeks, and repeat EGD in 2 weeks. He is on his baseline 2L nasal cannula oxygen. He can follow up with Pulmonology outpatient for pulmonary function testing. GI said to resume his aspirin on discharge. Continue Protonix twice daily for now. OTHER PROBLEMS/DIAGNOSIS: Principal Problem: Acute GI bleeding Active Problems: Acute blood loss anemia Duodenal ulcer Upper GI bleed Pressure injury of buttock, stage 1 Acute cystitis without hematuria Chronic hypoxic respiratory failure (HCC) Lung nodules Chronic obstructive pulmonary disease (HCC) Dysuria Resolved Problems: * No resolved hospital problems. * OPERATIONS PERFORMED WHILE IN THE HOSPITAL: None IMPORTANT TEST/PROCEDURES: No procedures performed TEST RESULTS NOT AVAILABLE AT THIS TIME: The plan for following up on pending results below is GI Discharge Disposition Home/Self Care Activity When You Leave the Hospital Activity Resume pre-hospital activity Diet Instructions Diet Minced and moist diet Follow Up Appointments Follow-up Appointment Spurting duodenal bleed follow up. Needs repeat EGD in 1 month When: In 2 weeks Juan Astorga MD [phone] [facility] [address] [facility] [address] PCP Requested Referral Follow-up Appointment Need CBC in 1 week to check for anemia When: In 1 week Padmini Carrasco MD [phone] [facility]. [facility]. [address] [facility] [address] PCP Requested Referral Follow-up Appointment Outpatient PFTs When: In 4 weeks Camelia Paulson MD [phone] [address] [facility] [address] [facility] [address] PCP Requested Referral Additional Provider to Provider Information: Treatment Team: Attending Provider: Tania De Luna DO Consulting: Breana Sanchze MD Primary Service: [facility] Problems Diagnosis POA Acute GI bleeding Yes Chronic hypoxic respiratory failure (HCC) Unknown Lung nodules Unknown Chronic obstructive pulmonary disease (HCC) Unknown Dysuria Unknown Upper GI bleed Yes Pressure injury of buttock, stage 1 Yes Acute cystitis without hematuria Yes Duodenal ulcer Yes Acute blood loss anemia Yes Resolved Hospital Problems No resolved problems to display. FOLLOW-UP APPOINTMENTS ALREADY SCHEDULED WITH A [facility] PROVIDER: Future Appointments Date (more content not included)... Normal [facility] Hematocrit Auto (Bld) [Volum e fraction]on 11-11-2024 Hematocrit (Bld) [Volume fraction] 28.6 % Low 39.0-51.0 [facility] Comment on above: Order Comment: Raul hutson Type: BLOOD SPECIMEN Ordering Facility: [facility] Address: [address] [place] [address] Performed By: #### 2 4323-8, 2777-1, #### [facility] CLIA [id number] [address] STATES OF [facility] Hgb Bld-ncon 11-11-2024 Hemoglobin (Bld) [Mass/Vol] 9.2 g/dL Low 13.0-17.0 [facility] Comment on above: Order Comment: Raul hutson Type: BLOOD SPECIMEN [facility]ing Facility: [facility] Address: [address] [place] [address] Performed By: #### 2 4323-8, 2777-1, #### [facility] CLIA [id number] [address] [place] THERAPY NTon 11-11-2024 THERAPY NT HNO ID: [id number] Author: TAIWO NORTON, PT Service: Physical Therapy Author Type: Physical Therapist Type: Therapy (PT/OT/Speech/Resp) Filed: 11/11/2024 12:58 Note Text: Physical Therapy Evaluation Summary SERVICE DATE: 11/11/2024 SERVICE TIME: 1033 to 1050 ROOM: [place] [address] PT 6 Clicks Score: 22 DISCHARGE RECOMMENDATIONS Home Recommended Discharge Equipment: No equipment needs anticipated ASSESSMENT Response to Therapy Interventions: Good Participation in Activities Pt appears near baseline, mild SOB with activity on 2L ambulating in the hallway. SpO2 96% after ambulating. Anticipate no further PT needs, okay for home when medically ready. CURRENT HOSPITAL COURSE BRBPR, ABLA r/t GIB. Bleeding duodenal ulcer cauterized. 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 SUBJECTIVE Pt pleasant and agreeable to PT. THERAPY DIAGNOSIS Reduced mobility-other TREATMENT INTERVENTIONS Evaluation $ Evaluation-Moderate (45612) Billed Units: 1 unit Skilled Treatment Time (minutes): 17 TRAINING AND EDUCATION PROVIDED Anatomy and Impact on Deficits, Benefits of In-Hospital Mobility, Gait Pattern, Reduction of Deviations, Role of Physical Therapy THERAPEUTIC SKILLS USED Cues for Sequencing/Proper Technique for Activity, Cuing Tactile, Cuing Verbal FUNCTIONAL STATUS Bed Mobility Transfers Sit To Stand: Stand By Assistance Stand To Sit: Stand By Assistance Bed to Chair Gait Contact Guard Assistance Gait Device: None General Deviations/Observations : Mandie decreased, Lateral sway increased, Step length decreased Gait Distance (feet): 150x2 Stairs RANGE OF MOTION WFL STRENGTH WFL BALANCE Static Standing Balance: Good Dynamic Standing Balance: Fair ACUTE CARE TREATMENT PLAN PT Frequency: Discontinue Therapy Services Reasons Therapy Services Discontinued: No skilled needs SIGNATURE: Taiwo Norton PT PATIENT NAME: Abelardo Ivory DATE: November 11, 2024 TIME: 12:[address] [facility] Basic metabolic 2000 panelon 11-10-2024 Anion gap [Moles/Vol] 10 mmol/L Normal 8-15 [facility] Comment on above: Order Comment: Speci men Type: BLOOD SPECIMEN [facility]ing Facility: [facility] Address: [address] [place] [address] Performed By: #### 2 4323-8, 2776-02, #### [facility] CLIA [id number] 1 [place] [address] [place] Calcium [Mass/Vol] 8.5 mg/dL Normal 8.5-10.2 [facility] Comment on above: Order Comment: Speci men Type: BLOOD SPECIMEN Ordering Facility: [facility] Address: [address] [place] [address] Performed By: #### 2 4323-8, 2776-02, #### [facility] CLIA [id number] 1 [place] [address] [place] Chloride [Moles/Vol] 100 mmol/L Normal 98-107 [facility] Comment on above: Order Comment: Speci men Type: BLOOD SPECIMEN Ordering Facility: [facility] Address: [address] [place] [address] Performed By: #### 2 4323-8, 2776-02, #### [facility] CLIA [id number] 1 [place] [address] [place] CO2 [Moles/Vol] 23 mmol/L Normal 22-30 [facility] Comment on above: Order Comment: Speci men Type: BLOOD SPECIMEN [facility]ing Facility: [facility] Address: [address] [place] [address] Performed By: #### 2 4323-8, 2776-02, #### [facility] CLIA [id number] 1 [place] [address] [place] Creatinine [Mass/Vol] 1.65 mg/dL High 0.73-1.22 [facility] Comment on above: Order Comment: Speci men Type: BLOOD SPECIMEN [facility]ing Facility: [facility] Address: [address] [place] [address] Performed By: #### 2 4323-8, 2776-02, #### [facility] CLIA [id number] 1 [place] [address] [place] eGFRcr SerPlBld CKD-EPI 2020 43 mL/min/1.73m??? Low >=60 [facility] Comment on above: Order Comment: Raul hutson Type: BLOOD SPECIMEN Ordering Facility: [facility] Address: [address] [place] [address] Result Comment: Amy mated Glomerular Filtration Rate [...] reflect actual GFR. Performed By: #### 2 4323-8, 2777-, #### [facility] CLIA [id number] 1 [place] [address] [place] Glucose [Mass/Vol] 91 mg/dL Normal 74-99 [facility] Comment on above: Order Comment: Raul hutson Type: BLOOD SPECIMEN Ordering Facility: [facility] Address: [address] [place] [address] Result Comment: The [place] Diabetes Association (ADA) provides guidance for cutoff [...] Standards of Medical Care in Diabetes 2016, [place] Diabetes Association. Diabetes Care. 2016.39(Suppl 1). Performed By: #### 2 4323-8, 2777-, #### [facility] CLIA [id number] 1 [place] [address] [place] Potassium [Moles/Vol] 4.5 mmol/L Normal 3.7-5.1 [facility] Comment on above: Order Comment: Speci men Type: BLOOD SPECIMEN Ordering Facility: [facility] Address: [address] [place] [address] Performed By: #### 2 4323-8, 2776-02, #### [facility] CLIA [id number] [address] STATES OF [facility] Sodium [Moles/Vol] 133 mmol/L Low 136-144 [facility] Comment on above: Order Comment: Speci men Type: BLOOD SPECIMEN Ordering Facility: [facility] Address: [address] [place] [address] Performed By: #### 2 4323-8, 2776-02, #### [facility] CLIA [id number] [address] [place] [address] [place] Urea nitrogen [Mass/Vol] 26 mg/dL High 9-24 [facility] Comment on above: Order Comment: Speci men Type: BLOOD SPECIMEN Ordering Facility: [facility] Address: [address] [place] [address] Performed By: #### 2 4323-8, 2776-02, #### [facility] CLIA [id number] [address] [place] [address] STATES OF [facility] CBC panel Auto (Bld)on 11-10 Erythrocyte distribution width (RBC) [Ratio] 16.0 % High 11.5-15.0 [facility] Comment on above: Order Comment: Speci men Type: BLOOD SPECIMEN Ordering Facility: [facility] Address: [address] [place] [address] Performed By: #### 2 4323-8, 2776-02, #### [facility] CLIA [id number] [address] [place] [address] [place] Hematocrit (Bld) [Volume fraction] 26.6 % Low 39.0-51.0 [facility] Comment on above: Order Comment: Speci men Type: BLOOD SPECIMEN Ordering Facility: [facility] Address: [address] [place] [address] Performed By: #### 2 4323-8, 27708-07, #### [facility] CLIA [id number] [address] Hemoglobin (Bld) [Mass/Vol] 8.6 g/dL Low 13.0-17.0 [facility] Comment on above: Order Comment: Speci men Type: BLOOD SPECIMEN Ordering Facility: [facility] Address: [address] [place] [address] Performed By: #### 2 4323-8, 2776-02, #### [facility] CLIA [id number] [address] MCH (RBC) [Entitic mass] 30.4 pg Normal 26.0-34.0 [facility] Comment on above: Order Comment: Speci men Type: BLOOD SPECIMEN Ordering Facility: [facility] Address: [address] [place] [address] Performed By: #### 2 4323-8, 2776-02, #### [facility] CLIA [id number] [address] MCHC (RBC) [Mass/Vol] 32.3 g/dL Normal 30.5-36.0 [facility] Comment on above: Order Comment: Speci men Type: BLOOD SPECIMEN Ordering Facility: [facility] Address: [address] [place] [address] Performed By: #### 2 4323-8, 2776-02, #### [facility] CLIA [id number] [address] MCV (RBC) [Entitic vol] 94.0 fL Normal 80.0-100.0 [facility] Comment on above: Order Comment: Speci men Type: BLOOD SPECIMEN Ordering Facility: [facility] Address: [address] [place] [address] Performed By: #### 2 4323-8, 2776-02, #### [facility] CLIA [id number] 1 [place] [address] [place] Nucleated RBC (Bld) [#/Vol] 10*3/uL Normal <0.01 [facility] Comment on above: Order Comment: Speci men Type: BLOOD SPECIMEN Ordering Facility: [facility] Address: [address] [place] [address] Performed By: #### 2 4323-8, 2776-02, #### [facility] CLIA [id number] [address] [place] Platelet mean volume (Bld) [Entitic vol] 9.0 fL Normal 9.0-12.7 [facility] Comment on above: Order Comment: Speci men Type: BLOOD SPECIMEN [facility] Facility: [facility] Address: [address] [place] [address] Performed By: #### 2 4323-8, 2776-02, #### [facility] CLIA [id number] [address] [place] Platelets (Bld) [#/Vol] 149 10*3/uL Low 150-400 [facility] Comment on above: Order Comment: Speci men Type: BLOOD SPECIMEN [facility]ing Facility: [facility] Address: [address] [place] [address] Performed By: #### 2 4323-8, 2776-02, #### [facility] CLIA [id number] [address] [place] RBC (Bld) [#/Vol] 2.83 10*6/uL Low 4.20-6.00 [facility] Comment on above: Order Comment: Speci men Type: BLOOD SPECIMEN Ordering Facility: [facility] Address: [address] [place] [address] Performed By: #### 2 4323-8, 2776-02, #### [facility] CLIA [id number] [address] [place] WBC (Bld) [#/Vol] 5.56 10*3/uL Normal 3.70-11.00 [facility] Comment on above: Order Comment: Speci men Type: BLOOD SPECIMEN Ordering Facility: [facility] Address: [address] [place] [address] Performed By: #### 2 4323-8, 2777-1, 33431-4 #### [facility] CLIA [id number] [address] CNPNon 11-10-2024 CNPN Telephone ([facility]) ABELARDO IVORY ([id number]) 1950 M Date Time Provider Department 11/10/24 RAUL LINTON During your visit today, we recorded the following information about you: Raul Linton PA-C 11/10/2024 10:44 AM Signed Please schedule this patient for a hospital follow up appointment in 1-2 weeks with PFT prior. Prefers Jennifer. Allergies As of Date: 11/10/2024 (No Known Allergies) Date Reviewed: 11/09/2024 Reviewed by: Cristel Cantor RN - Fully Assessed Reason for Visit: Hospital Follow Up [177] Primary Visit Diagnosis:Centrilobular emphysema (HCC) [J43.2] Order(s):SPIROMETRY WITH DILATOR IF OBSTRUCTED [7920082] Order #: [id number]: 1 FUTURE LUNG DIFFUSION CAPACITY (DLCO) [[id number]] Order #: [id number]: 1 FUTURE LUNG VOLUMES [[id number]] Order #: [id number]: 1 FUTURE Prescriptions as of 11/10/2024 - ondansetron (ZOFRAN) 8 mg tablet Take [...] 5 mg by mouth once daily. - lkyvemwtlwk-xoubmmshw-m ilanter (TRELEGY ELLIPTA) 200-62.5-25 mcg inhalation powder Inhale 1 puff as instructed once daily. - acetaminophen (TYLENOL) 325 mg tablet Take 2 tablets by mouth every 4 hours. - rosuvastatin (CRESTOR) 5 mg tablet Take 5 mg by mouth daily at bedtime. - aspirin 81 mg chewable tablet Take 1 tablet by mouth once daily. - albuterol HFA (PROAIR HFA) 90 mcg/actuation inhaler Inhale 2 Puffs as instructed every 4 hours as needed for Wheezing/Shortness of Breath. - metoprolol tartrate, short acting, (LOPRESSOR) 25 mg tablet Take 0.5 tablets by mouth every 12 hours. Facility-Administered Medications as of 11/10/2024 - amoxicillin 500 mg cap(s) (AMOXIL) - pantoprazole DR 40 mg tab(s) (PROTONIX) - amLODIPine 5 mg tab(s) (NORVASC) - metoprolol tartrate (short acting) 12.5 mg tab(s) (LOPRESSOR) - albuterol 2.5 mg /3 mL (0.083 %) 2.5 mg (PROVENTIL) - NaCl 0.9% iv flush bag - rosuvastatin 5 mg tab(s) (CRESTOR) - budesonide 0.5 mg/2 mL 1 mg (PULMICORT) - ipratropium-albuterol 3 mL nebulizer solution (DUONEB) Problem List As Of Date 11/10/2024 Noted Resolved CONTUSION OF FOREARM [S50.10XA] 08/09/2005 [...] 02/12/2019 Acute blood loss anemia [D62] 02/12/2019 Stress hyperglycemia [R73.9] 02/12/2019 12/30/2021 Fluid overload [E87.70] 02/14/2019 Thrombocytopenia (HCC) [D69.6] 02/14/2019 02/15/2019 Postoperative anemia [D64.9] 02/14/2019 02/15/2019 Transition of care performed with sharing of cl*02/15/2019 Current smoker [F17.200] 02/17/2019 Juxtarenal ruptured abdominal aortic aneurysm (*12/28/2021 Hx of CABG [Z95.1] 12/28/2021 Centrilobular emphysema (HCC) [J43.2] 12/28/2021 Duodenal ulcer [K26.9] 12/28/2021 Postoperative pain [G89.18] 12/29/2021 Red blood cell antibody positive [R76.89] 12/30/2021 Type 2 diabetes mellitus without complication, *08/16/2024 CKD (chronic kidney disease) [N18.9] 08/16/2024 Malignant neoplasm of urinary bladder (HCC) [C6*09/05/2024 Upper GI bleed [K92.2] 11/08/2024 Acute GI bleeding [K92.2] 11/08/2024 Pressure injury of buttock, stage 1 [L89.301] 11/08/2024 Acute cystitis without hematuria [N30.00] 11/08/2024 Chronic hypoxic respiratory failure (HCC) [J96.*11/10/2024 Lung nodules [R91.8] 11/10/2024 Chronic obstructive pulmonary disease (HCC) [J4*11/10/2024 Dysuria [R30.0] 11/10/2024 Encounter Status:Closed by WINSTONRAUL on 11/10/[address] [facility] CONSULTon 11-10-2024 CONSULT HNO ID: [id number] Author: NANETTE ALVARADO DO Service: Infectious Disease Author Type: Physician Type: Consults Filed: 11/10/2024 11:58 Note Text: INFECTIOUS DISEASE CONSULT NOTE SERVICE DATE: November 10, 2024 SERVICE TIME: 9:40 AM We were asked to evaluate Mr. Abelardo Ivory, a 74 year old yo male by Dr. De Luna for UTI .Our findings and recommendations will be communicated through the shared medical record. History obtained by patient Subjective HPI: Abelardo Ivory is a 74 year old male with pertinent past medical history of PUD, bladder ca s/p TURP on chemo, AAA , CKD IIIB who presented with rectal bleeding. Underwent endoscopy this admission with noted duodenal ulcer. He was stabilized in the MICU. Pt with urinary symptoms started on vancomycin on 11/08, no urine cx sent. Patient states he was having burning pain after his TURP, this has slowly been resolving, continues to have some pain at times Current other medications reviewed. Current Facility-Administered Medications Medication Dose Route Frequency pantoprazole DR 40 mg tab(s) (PROTONIX) 40 mg ORAL BID AC (0600/1600) amLODIPine 5 mg tab(s) (NORVASC) 5 mg ORAL DAILY metoprolol tartrate (short acting) 12.5 mg tab(s) (LOPRESSOR) 12.5 mg ORAL q 12 H albuterol 2.5 mg /3 mL (0.083 %) 2.5 mg (PROVENTIL) 2.5 mg INHALATION q 6 H PRN NaCl 0.9% iv flush bag 20 mL INTRAVENOUS PRN rosuvastatin 5 mg tab(s) (CRESTOR) 5 mg ORAL AT BEDTIME vancomycin dosing and monitoring per pharmacy OTHER As Directed budesonide 0.5 mg/2 mL 1 mg (PULMICORT) 1 mg INHALATION BID And ipratropium-albuterol 3 mL nebulizer solution (DUONEB) 3 mL INHALATION QID PAST MEDICAL HISTORY Diagnosis Date Abdominal aortic [...] LENS Left REMV CATARACT EXTRACAP,INSERT LENS Right SOCIAL HISTORY[1] FAMILY HISTORY Problem Relation Age of Onset Diabetes Mother Emphysema Mother Asthma Sister Kidney Disease Sister Aneurysm No Family History ALLERGIES No Known Allergies REVIEW OF SYSTEMS: Review of Systems All other systems reviewed and are negative. Objective PHYSICAL EXAM: BP 102/73 Pulse 92 Temp 36.5 ?C (97.7 ?F) (Axillary) Resp 18 Ht 167.6 cm (5' 6) Wt 69.9 kg (154 lb 1.6 oz) SpO2 95% BMI 24.87 kg/m? Intake/Output Summary (Last 24 hours) at 11/10/2024 0940 Last data filed at 11/10/2024 0928 Gross per 24 hour Intake 1186 ml Output 2800 ml Net -1614 ml Physical Exam Constitutional: Appearance: Normal appearance. He is not ill-appearing. Cardiovascular: Rate and Rhythm: Normal rate and regular rhythm. Pulses: Normal pulses. Heart sounds: No murmur heard. Pulmonary: Effort: Pulmonary effort is normal. No respiratory distress. Breath sounds: Normal breath sounds. Abdominal: General: Bowel sounds are normal. There is no distension. Palpations: Abdomen is soft. Musculoskeletal: General: No swelling. Normal range of motion. Skin: General: Skin is warm. Coloration: Skin is not jaundiced. Neurological: General: No focal deficit present. Mental Status: He is alert and oriented to person, place, and time. LABS: WBC (k/uL) Date Value 11/10/2024 5.56 11/09/2024 6.39 11/08/2024 10.05 11/08/2024 12.28 10/15/2024 3.90 04/10/2019 6.44 2019 9.55 02/20/2019 7.93 02/19/2019 6.45 02/18/2019 6.37 Creatinine (mg/dL) Date Value 11/10/2024 1.65 11/09/2024 1.83 11/08/2024 1.89 11/08/2024 1.94 10/01/2024 2.06 04/10/2019 1.09 2019 1.06 02/20/2019 1.02 02/19/2019 1.01 02/18/2019 1.00 Creatinine (POCT) (mg/dL) Date Value 04/17/2021 1.00 10/08/2019 1.20 Lab Results Component Value Date NEUTP 59.2 10/15/2024 NEUTP 68.9 02/06/2019 ABSNEUT 2.31 10/15/2024 ABSNEUT 3.92 02/06/2019 LYMPHP 21.3 10/15/2024 LYMPHP 22.0 02/06/2019 ABSLYMPH 0.83 10/15/2024 ABSLYMPH 1.26 02/06/2019 ABSMONO 0.61 10/15/2024 ABSMONO 0.43 02/06/2019 EODINP 3.1 10/15/2024 EODINP 0.9 02/06/2019 ABSEOSIN 0.12 10/15/2024 ABSEOSIN 0.05 02/06/2019 BASOP 0.5 10/15/2024 BASOP 0.7 01/09 (more content not included)... Normal [facility] CONSULT PROGon 11-10-2024 CONSULT PROG HNO ID: [id number] Author: RAUL LINTON PA-C Service: Pulmonary Disease Author Type: Physician General Road Foreman Type: Consult Progress Note Filed: 11/10/2024 10:43 Note Text: [facility] PULMONARY MEDICINE CONSULT PROGRESS NOTE SERVICE DATE: November 10, 2024 SERVICE TIME: 10:37 AM INTERVAL HPI: Abelardo Ivory is a 74 year old male seen for ICU follow-up. Admitted for acute blood loss anemia secondary to upper GI bleed, also with a history of COPD. Transfer out of ICU 11/09. Feeling improved when seen today. States his COPD is at baseline status. He is tolerating his home O2 requirement of 2 L. Admits to only taking his Trelegy some days. Smoking up to admission but committed to quitting. Denies shortness of breath, cough, wheezing, fever, chills, chest pain. Objective CURRENT MEDICATIONS Current Facility-Administered Medications Medication Dose Route Frequency Provider Last Rate Last Admin amoxicillin 500 mg cap(s) (AMOXIL) 500 mg ORAL q 8 H Nanette Alvarado, DO pantoprazole DR 40 mg tab(s) (PROTONIX) 40 mg ORAL BID AC (0600/1599) PurnodeOmarte, DO 40 mg at 11/10/24 0520 amLODIPine 5 mg tab(s) (NORVASC) 5 mg ORAL DAILY PurnoSmitha concepcionCorinne, DO 5 mg at 11/10/24 0918 metoprolol tartrate (short acting) 12.5 mg tab(s) (LOPRESSOR) 12.5 mg ORAL q 12 H PurnoOmar concepcionte, DO 12.5 mg at 11/10/24 0918 albuterol 2.5 mg /3 mL (0.083 %) 2.5 mg (PROVENTIL) 2.5 mg INHALATION q 6 H PRN LindanoOmar concepcionte, DO 2.5 mg at 11/08/24 0603 NaCl 0.9% iv flush bag 20 mL INTRAVENOUS PRN Purnode, Corinne, DO Paused at 11/09/24 1041 rosuvastatin 5 mg tab(s) (CRESTOR) 5 mg ORAL AT BEDTIME LindanoSmitha concepcionCorinne, DO 5 mg at 11/09/24 2110 budesonide 0.5 mg/2 mL 1 mg (PULMICORT) 1 mg INHALATION BID PurnoSmitha concepcionCorinne, DO 1 mg at 11/10/24 0745 And ipratropium-albuterol 3 mL nebulizer solution (DUONEB) 3 mL INHALATION QID LindanoOmar concepcionte, DO 3 mL at 11/10/24 0745 Intake/Output Summary (Last 24 hours) at 11/10/2024 1037 Last data filed at 11/10/2024 0928 Gross per 24 hour Intake 1186 ml Output 2800 ml Net -1614 ml LABS: CBC, Coags, BMP, Mg, Phos Recent Labs 11/10/24 0518 11/09/24 1644 11/09/24 0310 11/08/24 0947 11/08/24 0505 11/08/24 0051 WBC 5.56 -- 6.39 -- 10.05 12.28* HB 8.6* 9.1* 8.4* < > 9.9* 10.4* HCT 26.6* -- 26.2* -- 30.0* 32.6* PLT 149* -- 131* -- 141* 151 NA 133* -- 137 -- 139 139 K 4.5 -- 5.0 -- 4.7 5.4* CHLOR 100 -- 106 -- 105 106 CO2 23 -- 22 -- 22 22 BUN 26* -- 40* -- 50* 51* CREAT 1.65* -- 1.83* -- 1.89* 1.94* GLUC 91 -- 111* -- 94 127* CA 8.5 -- 8.3* -- 8.1* 7.9* MG -- -- -- -- -- 2.1 P -- -- -- -- -- 4.4 < > = values in this interval not displayed. Liver Function, Amylase, AND Lipase Recent Labs 11/08/24 0051 TPROT 5.3* ALB 3.2* ALT 9* AST 15 ALKPHOS 60 TBILI 0.3 LACT 1.1 Cardiac Enzymes ABGs NT Pro BNP Date Value Ref Range Status 12/28/2021 4,990 (H) <125 pg/mL Final MICRO: IMAGING: CT ABD/PEL WO IVCON Result Date: 09/19/2024 IMPRESSION: No significant change since July 31, 2024. Given differences in technique, the abnormal urinary bladder wall thickening and pericystic stranding are largely similar. Similar left greater than right hydronephrosis and hydroureter. Small retroperitoneal nodes are stable. Last XR Chest - Impression Only XR CHEST 1V FRONTAL PORT Exam End: 01/02/2022 7:55 AM (Final result) Impression: IMPRESSION: See result. ... Limited ECHO 12/28/21: CONCLUSIONS: - Exam indication: Re-evaluation of known [...] exam performed on 09/29/2020 (Jennifer). Limited study. PHYSICAL EXAM: BP 109/60 Pulse 68 Temp (Src) 97.5 (Axillary) Resp 18 Ht 5' 6 (1.68m) Wt 154 lb 1.6 oz (69.9kg) SpO2 95% BMI 24.88 kg/(m2). O2 Therapy: Nasal Cannula, Liters (Numeric Only): 2 O2: 2 L/min NC General appearance: well appearing, alert, and in no acute distress HEENT: NCAT. Anicteric sclera. Nares normal, septum midline, mucosa normal, no drainage. Lips, tongue, and buccal mucosa pink and moist without cyanosis. Respiratory: Respirations are non labored without accessory muscle use. Breath sounds are diminished bilaterally without wheezing, rhonchi, or rales. Cardiovascular: Regular rate and rhythm no m/r/g Extremities: Warm and well perfused. No peripheral edema. Psych: Cooperative with exam, answers questions appropriately. Neuro: AANDO x 3. ASSESSMENT AND PLAN: 1. Chronic hypoxic respiratory failure - Tolerating baseline 2 L/min nasal cannula (more content not included)... [facility] CONSULT PROG HNO ID: [id number] Author: ABY ALLEN RPh Service: Pharmacy Author Type: Pharmacist Type: Consult Progress Note Filed: 11/10/2024 09:45 Note Text: PHARMACY VANCOMYCIN DOSING NOTE Patient Name: Abelardo Ivory Admission Date: 11/07/2024 Date of Consult: 11/10/2024 Time of Consult: 9:45 AM RECOMMENDATIONS/PLAN: Pharmacy consulted for vancomycin dosing for Abelardo Ivory, a 74 year old male. Vancomycin therapy has been discontinued. Vancomycin level(s) have been discontinued: Yes. The pharmacy vancomycin dosing service will sign off. Thank you for allowing us to participate in this patient's care. Please contact pharmacy if there are questions. Aby Allen RPh [facility] Hgb Bld-ncon 11-10-2024 Hemoglobin (Bld) [Mass/Vol] 8.7 g/dL Low 13.0-17.0 [facility] Comment on above: Order Comment: Speci men Type: BLOOD SPECIMEN Ordering Facility: [facility] Address: [address] [place] [address] Performed By: #### 2 4323-8, 2777-1, #### [facility] CLIA [id number] [address] [place] [address] [place] Basic metabolic 2000 panelon 11-09-2024 Anion gap [Moles/Vol] 9 mmol/L Normal 8-15 [facility] Comment on above: Order Comment: Speci men Type: BLOOD SPECIMEN Ordering Facility: [facility] Address: [address] [place] [address] Performed By: #### 2 4323-8, 1, #### [facility] CLIA [id number] [address] [place] [address] [place] Calcium [Mass/Vol] 8.3 mg/dL Low 8.5-10.2 [facility] Comment on above: Order Comment: Speci men Type: BLOOD SPECIMEN Ordering Facility: [facility] Address: [address] [place] [address] Performed By: #### 2 4323-8, 1, #### [facility] CLIA [id number] [address] [place] Chloride [Moles/Vol] 106 mmol/L Normal 98-107 [facility] Comment on above: Order Comment: Speci men Type: BLOOD SPECIMEN Ordering Facility: [facility] Address: [address] [place] [address] Performed By: #### 2 4323-8, 2771, #### [facility] CLIA [id number] 1 [place] [address] [place] CO2 [Moles/Vol] 22 mmol/L Normal 22-30 [facility] Comment on above: Order Comment: Speci men Type: BLOOD SPECIMEN Ordering Facility: [facility] Address: [address] [place] [address] Performed By: #### 2 4323-8, 2777, #### [facility] CLIA [id number] [address] [place] [address] [place] Creatinine [Mass/Vol] 1.83 mg/dL High 0.73-1.22 [facility] Comment on above: Order Comment: Speci men Type: BLOOD SPECIMEN Ordering Facility: [facility] Address: [address] [place] [address] Performed By: #### 2 4323-8, 2777, #### [facility] CLIA [id number] [address] [place] eGFRcr SerPlBld CKD-EPI 2020 38 mL/min/1.73m??? Low >=60 [facility] Comment on above: Order Comment: Speci men Type: BLOOD SPECIMEN Ordering Facility: [facility] Address: [address] [place] [address] Result Comment: Amy mated Glomerular Filtration Rate [...] reflect actual GFR. Performed By: #### 2 4323-8, 2777, #### [facility] CLIA [id number] [address] [place] [address] [place] Glucose [Mass/Vol] 111 mg/dL High 74-99 [facility] Comment on above: Order Comment: Speci men Type: BLOOD SPECIMEN Ordering Facility: [facility] Address: [address] [place] [address] Result Comment: The [place] Diabetes Association (ADA) provides guidance for cutoff [...] Standards of Medical Care in Diabetes 2016, [place] [employer] Association. Diabetes Care. 2016.39(Suppl 1). Performed By: #### 2 4323-8, 2776-02, #### [facility] CLIA [id number] [address] [place] [address] [place] Potassium [Moles/Vol] 5.0 mmol/L Normal 3.7-5.1 [facility] Comment on above: Order Comment: Raul hutson Type: BLOOD SPECIMEN Ordering Facility: [facility] Address: [address] [place] [address] Performed By: #### 2 4323-8, 2776-02, #### [facility] CLIA [id number] [address] [place] [address] [place] Sodium [Moles/Vol] 137 mmol/L Normal 136-144 [facility] Comment on above: Order Comment: Raul hutson Type: BLOOD SPECIMEN Ordering Facility: [facility] Address: [address] [place] [address] Performed By: #### 2 4323-8, 2776-02, #### [facility] CLIA [id number] [address] [place] [address] [place] Urea nitrogen [Mass/Vol] 40 mg/dL High 9-24 [facility] Comment on above: Order Comment: Raul hutson Type: BLOOD SPECIMEN Ordering Facility: [facility] Address: [address] [place] [address] Performed By: #### 2 4323-8, 2776-02, #### [facility] CLIA [id number] [address] [place] [address] [place] CBC panel Auto (Bld)on 11-09 Erythrocyte distribution width (RBC) [Ratio] 16.0 % High 11.5-15.0 [facility] Comment on above: Order Comment: Speci men Type: BLOOD SPECIMEN Ordering Facility: [facility] Address: [address] [place] [address] Performed By: #### 2 4323-8, 27708-07, #### [facility] CLIA [id number] [address] Hematocrit (Bld) [Volume fraction] 26.2 % Low 39.0-51.0 [facility] Comment on above: Order Comment: Speci men Type: BLOOD SPECIMEN Ordering Facility: [facility] Address: [address] [place] [address] Performed By: #### 2 4323-8, 2776-02, #### [facility] CLIA [id number] [address] [place] [address] Hemoglobin (Bld) [Mass/Vol] 8.4 g/dL Low 13.0-17.0 [facility] Comment on above: Order Comment: Speci men Type: BLOOD SPECIMEN Ordering Facility: [facility] Address: [address] [place] [address] Performed By: #### 2 4323-8, 2776-02, #### [facility] CLIA [id number] [address] [place] [address] [place] MCH (RBC) [Entitic mass] 30.1 pg Normal 26.0-34.0 [facility] Comment on above: Order Comment: Speci men Type: BLOOD SPECIMEN Ordering Facility: [facility] Address: [address] [place] [address] Performed By: #### 2 4323-8, 2776-02, #### [facility] CLIA [id number] [address] [place] MCHC (RBC) [Mass/Vol] 32.1 g/dL Normal 30.5-36.0 [facility] Comment on above: Order Comment: Speci men Type: BLOOD SPECIMEN Ordering Facility: [facility] Address: [address] [place] [address] Performed By: #### 2 4323-8, 2776-02, #### [facility] CLIA [id number] [address] OF [facility] MCV (RBC) [Entitic vol] 93.9 fL Normal 80.0-100.0 [facility] Comment on above: Order Comment: Speci men Type: BLOOD SPECIMEN Ordering Facility: [facility] Address: [address] [place] [address] Performed By: #### 2 4323-8, 2776-02, #### [facility] CLIA [id number] [address] [place] [address] OF [facility] Nucleated RBC (Bld) [#/Vol] 10*3/uL Normal <0.01 [facility] Comment on above: Order Comment: Speci men Type: BLOOD SPECIMEN Ordering Facility: [facility] Address: [address] [place] [address] Performed By: #### 2 4323-8, 2776-02, #### [facility] CLIA [id number] [address] [place] [address] [place] Platelet mean volume (Bld) [Entitic vol] 8.8 fL Low 9.0-12.7 [facility] Comment on above: Order Comment: Speci men Type: BLOOD SPECIMEN Ordering Facility: [facility] Address: [address] [place] [address] Performed By: #### 2 4323-8, 2776-02, #### [facility] CLIA [id number] [address] [place] Platelets (Bld) [#/Vol] 131 10*3/uL Low 150-400 [facility] Comment on above: Order Comment: Speci men Type: BLOOD SPECIMEN Ordering Facility: [facility] Address: [address] [place] [address] Performed By: #### 2 4323-8, 2777-1, 19182-9 #### [facility] CLIA [id number] [address] OF [facility] RBC (Bld) [#/Vol] 2.79 10*6/uL Low 4.20-6.00 [facility] Comment on above: Order Comment: Speci men Type: BLOOD SPECIMEN Ordering Facility: [facility] Address: [address] [place] [address] Performed By: #### 2 4323-8, 2777-1, 46662-6 #### [facility] CLIA [id number] [address] WBC (Bld) [#/Vol] 6.39 10*3/uL Normal 3.70-11.00 [facility] Comment on above: Order Comment: Speci men Type: BLOOD SPECIMEN Ordering Facility: [facility] Address: [address] [place] [address] Performed By: #### 2 4323-8, 2777-1, 58851-3 #### [facility] CLIA [id number] [address] CONSULT PROGon 11-09-2024 CONSULT PROG HNO ID: [id number] Author: BOBBY WHITESIDE APRN.PATTERNMAKER HAND Service: Gastroenterology Author Type: Nurse Practitioner Type: Consult Progress Note Filed: 11/09/2024 13:53 Note Text: GI CONSULT PROGRESS NOTE SERVICE DATE: 11/09/2024 SERVICE TIME: 8:56 AM CONSULTING SERVICE: Gastroenterology Subjective INTERVAL HPI: GI following for GI bleeding. No bowel movements overnight. No GI complaints. Hgb 8.4 stable. No blood transfusions required. Current Facility-Administered Medications Medication Dose Route Frequency albuterol 2.5 mg /3 mL (0.083 %) 2.5 mg (PROVENTIL) 2.5 mg INHALATION q 6 H PRN NaCl 0.9% iv flush bag 20 mL INTRAVENOUS PRN rosuvastatin 5 mg tab(s) (CRESTOR) 5 mg ORAL AT BEDTIME vancomycin dosing and monitoring per pharmacy OTHER As Directed budesonide 0.5 mg/2 mL 1 mg (PULMICORT) 1 mg INHALATION BID And ipratropium-albuterol 3 mL nebulizer solution (DUONEB) 3 mL INHALATION QID pantoprazole DR 40 mg tab(s) (PROTONIX) 40 mg ORAL BID AC (0600/1600) amLODIPine 5 mg tab(s) (NORVASC) 5 mg ORAL DAILY metoprolol tartrate (short acting) 12.5 mg tab(s) (LOPRESSOR) 12.5 mg ORAL q 12 H Objective PHYSICAL EXAM: Physical Exam Performed: Physical Exam Vitals reviewed. Constitutional: General: He is not in acute distress. HENT: Head: Normocephalic and atraumatic. Pulmonary: Effort: Pulmonary effort is normal. No respiratory distress. Abdominal: General: Bowel sounds are normal. There is no distension. Palpations: Abdomen is soft. Tenderness: There is no abdominal tenderness. There is no guarding or rebound. Neurological: Mental Status: He is alert and oriented to person, place, and time. BP 127/58 Pulse 73 Temp (Src) 97.7 (Oral) Resp 18 Ht 5' 6 (1.68m) Wt 154 lb 1.6 oz (69.9kg) SpO2 95% BMI 24.88 kg/(m2). O2 Therapy: Nasal Cannula, Liters (Numeric Only): 2 DATA: Diagnostic tests reviewed for today's visit: Most recent labs and imaging results. WBC (k/uL) Date Value 11/09/2024 6.39 RBC (m/uL) Date Value 11/09/2024 2.79 (L) Hemoglobin (g/dL) Date Value 11/09/2024 8.4 (L) Hematocrit (%) Date Value 11/09/2024 26.2 (L) MCV (fL) Date Value 11/09/2024 93.9 MCH (pg) Date Value 11/09/2024 30.1 MCHC (g/dL) Date Value 11/09/2024 32.1 RDW-CV (%) Date Value 11/09/2024 16.0 (H) Platelet Count (k/uL) Date Value 11/09/2024 131 (L) MPV (fL) Date Value 11/09/2024 8.8 (L) Glucose (mg/dL) Date Value 11/09/2024 111 (H) BUN (mg/dL) Date Value 11/09/2024 40 (H) Creatinine (mg/dL) Date Value 11/09/2024 1.83 (H) Sodium (mmol/L) Date Value 11/09/2024 137 Potassium (mmol/L) Date Value 11/09/2024 5.0 Chloride (mmol/L) Date Value 11/09/2024 106 CO2 (mmol/L) Date Value 11/09/2024 22 Protein, Total (g/dL) Date Value 11/08/2024 5.3 (L) Albumin (g/dL) Date Value 11/08/2024 3.2 (L) Calcium, Total (mg/dL) Date Value 11/09/2024 8.3 (L) Alkaline Phosphatase (U/L) Date Value 11/08/2024 60 Bilirubin, Total (mg/dL) Date Value 11/08/2024 0.3 AST (U/L) Date Value 11/08/2024 15 ALT (U/L) Date Value 11/08/2024 9 (L) Cholesterol, Total (mg/dL) Date Value 04/10/2019 155 Triglyceride (mg/dL) Date Value 04/10/2019 306 (H) CTA A/P 11/07/2024: -No active GI bleeding -Mild wall thickening and inflammation of the duodenum and the distal rectosigmoid colon suggestive of enterocolitis. Nonspecific diarrheal illness with fluid in the colon -Marked wall thickening of the bladder with surrounding inflammatory fat stranding, may be infectious/inflammatory related to known neoplasm, possibly treatment related -Similar mild left hydroperinephrosis, evidence of left ureteritis/pyelitis -Stable appearence of irregular diffuse fusiform aneurysmal dilation of the infrarenal abdominal aorta and bilateral common EGD 11/07/2024: -The examined esophagus was normal -Red blood was found in the entire examined stomach -Spurting duodenal ulcer with a visible vessel, injected, treated with heater probe -Widely patent anastomosis in the duodenal bulb, this was characterized by ulceration, found in the duodenum Colonoscopy 11/07/2024: -Blood in the entire examined colon -Blood in the distal ileum and in the terminal ileum Impression/Recommendati ons GI bleed - s/p EGD/Colonoscopy at [facility] on 11/07/2024. CTA without evidence of active hemorrhage, showed mild wall thickening and inflammation of the duodenum and the distal rectosigmoid colon suggestive of enterocolitis. EGD showed spurting duodenal ulcer with a visible vessel, injected and treated with heater probe. Colonoscopy noted blood in the entire examined colon. No bowel movements since being at [facility]. -Monitor and document for overt GI bleeding -Monitor/trend H/H and transfuse as indicated -Avoid NSAIDs -Continue IV PPI BID -Clear liquid diet -No plans for repeat EGD at this time Acute blood los (more content not included)... Normal [facility] CONSULT PROG HNO ID: [id number] Author: CAYETANO RIVERA RPh Service: Pharmacy Author Type: Pharmacist Type: Consult Progress Note Filed: 11/09/2024 13:17 Note Text: PHARMACY VANCOMYCIN DOSING NOTE Patient Name: Abelardo Ivory Admission Date: 11/07/2024 Date of Consult: 11/09/2024 Time of Consult: 11:21 AM Indication: Urinary tract infection Goal Range: 10-20 mcg/mL RECOMMENDATIONS/PLAN: Pharmacy consulted for vancomycin dosing for Abelardo Ivory, a 74 year old male. 1. Patient is currently ordered Vancomycin dosed by level. Today is day 2 of therapy. 2. The most recent vancomycin level was 8.4 mcg/mL drawn at 1037 on 11/09/2024. This is a 22 hour level on the 2nd day of therapy. 3. Vancomycin level is below or within therapeutic goal. Will re-dose vancomycin 1 g x1 dose today. 4. The next vancomycin level has been ordered for 11/10/2024 @ 1100. (Completed) The resulted level was a touch higher than I would have expected after one dose of vancomycin dosed at 15 mg/kg. This patient does have CKD and is around his baseline serum creatinine. Will dose by level for today and re-assess tomorrow. We will follow patient renal function, vancomycin levels and doses with you during the course of therapy. Additional recommendations will appear in follow up notes. If you have any questions, please contact Cayetano Rivera RPh at [employer]. Age: [age] year old Allergies: ALLERGIES No Known Allergies Last 3 Encounter Wt Readings: Date: Wt: 11/07/2024 69.9 kg (154 lb 1.6 oz) 10/15/2024 66.2 kg (146 lb) 10/12/2024 66.7 kg (147 lb) Last 1 Encounter Ht Readings: Date: Ht: 11/07/2024 167.6 cm (5' 6) Estimated Creatinine Clearance: 32 mL/min (A) (based on SCr of 1.83 mg/dL (H)). CKD at baseline Temp (24hrs), Av.8 ?C (98.3 ?F), Min:36.6 ?C (97.9 ?F), Max:37.2 ?C (99 ?F) - Current Temp: 36.6 ?C (97.9 ?F) Labs BUN (mg/dL) Date Value 11/09/2024 40 (H) 11/08/2024 50 (H) 11/08/2024 51 (H) Creatinine (mg/dL) Date Value 11/09/2024 1.83 (H) 11/08/2024 1.89 (H) 11/08/2024 1.94 (H) WBC (k/uL) Date Value 11/09/2024 6.39 11/08/2024 10.05 11/08/2024 12.28 (H) Vancomycin Levels: Vancomycin (ug/mL) Date/Time Value 11/09/2024 1037 8.4 (L) Cayetano Rivera, [facility] Normal [facility] Hgb Bld-mCncon 11-09-2024 Hemoglobin (Bld) [Mass/Vol] 9.1 g/dL Low 13.0-17.0 [facility] Comment on above: Order Comment: Raul hutson Type: BLOOD SPECIMEN Ordering Facility: [facility] Address: [address] [place] [address] Performed By: #### 2 4323-8, 2777-1, 76595-3 #### [facility] CLIA [id number] [address] [place] [address] [place] Hemoglobin (Bld) [Mass/Vol] 8.2 g/dL Low 13.0-17.0 [facility] Comment on above: Order Comment: Raul hutson Type: BLOOD SPECIMEN Ordering Facility: [facility] Address: [address] [place] [address] Performed By: #### 2 4323-8, 2777-1, 78204-7 #### [facility] CLIA [id number] [address] [place] NURSING PROGon 11-09-2024 NURSING PROG HNO ID: [id number] Author: AMIE AGUIRRE RN Service: [facility] Author Type: Registered Nurse Type: Nursing Progress Note Filed: 11/09/2024 14:19 Note Text: Transfer Note: PATIENT NAME: Abelardo Ivory Patient Location: [place] [address] [address] Room: [id number] Patient transferred from [facility] to [facility] in stable condition. Actions taken: Report given/called to nurse Abelardo Pt has no belonging, transfer via wheelchair, tely AND 2lnc Normal [facility] Urine Cultureon 11-09-2024 URC Below infection leve l. Mixed Gram Positive Organisms Conway Count <1000 MIXC Mixed contaminants. Submit a new specimen if indicated. Normal [facility] Comment on above: Performed By: #### M 100.2200 ####[facility] [address] [place], [place], [id number] Vancomycin random [Mass/Vol] on 11-09-2024 Vancomycin [Mass/Vol] 8.4 ug/mL Low 10.0-20.0 [facility] Comment on above: Order Comment: Speci men Type: BLOOD SPECIMEN Ordering Facility: [facility] Address: [address] [place] [address] Result Comment: Refe rence ranges and high/low indicator flags are provided as general guidelines only. The treating physician must determine appropriate target levels/dosing based on the specific clinical situation. Performed By: #### 4 091-5 #### [facility] CLIA [id number] [address] [place] [address] [place] Basic metabolic 2000 panelon 11-08-2024 Anion gap [Moles/Vol] 12 mmol/L Normal 8-15 [facility] Comment on above: Order Comment: Speci men Type: BLOOD SPECIMEN Ordering Facility: [facility] Address: [address] [place] [address] Performed By: #### 2 4321-2 #### [facility] CLIA [id number] 1 [place] [address] [place] Calcium [Mass/Vol] 8.1 mg/dL Low 8.5-10.2 [facility] Comment on above: Order Comment: Speci men Type: BLOOD SPECIMEN Ordering Facility: [facility] Address: [address] [place] [address] Performed By: #### 2 4321-2 #### [facility] CLIA [id number] 1 [place] [address] [place] Chloride [Moles/Vol] 105 mmol/L Normal 98-107 [facility] Comment on above: Order Comment: Speci men Type: BLOOD SPECIMEN Ordering Facility: [facility] Address: [address] [place] [address] Performed By: #### 2 1-2 #### [facility] CLIA [id number] 1 [place] [address] [place] CO2 [Moles/Vol] 22 mmol/L Normal 22-30 [facility] Comment on above: Order Comment: Speci men Type: BLOOD SPECIMEN Ordering Facility: [facility] Address: [address] [place] [address] Performed By: #### 2 4321-2 #### [facility] CLIA [id number] 1 [place] [address] [place] Creatinine [Mass/Vol] 1.89 mg/dL High 0.73-1.22 [facility] Comment on above: Order Comment: Speci men Type: BLOOD SPECIMEN Ordering Facility: [facility] Address: [address] [place] [address] Performed By: #### 2 4321-2 #### [facility] CLIA [id number] 1 [place] [address] [place] eGFRcr SerPlBld CKD-EPI 2020 37 mL/min/1.73m??? Low >=60 [facility] Comment on above: Order Comment: Raul hutson Type: BLOOD SPECIMEN Ordering Facility: [facility] Address: [address] [place] [address] Result Comment: Amy mated Glomerular Filtration Rate [...] actual GFR. Performed By: #### 2 4321-2 #### [facility] CLIA [id number] [address] [place] [address] [place] Glucose [Mass/Vol] 94 mg/dL Normal 74-99 [facility] Comment on above: Order Comment: Raul hutson Type: BLOOD SPECIMEN Ordering Facility: [facility] Address: [address] [place] [address] Result Comment: The [place] Diabetes Association (ADA) provides guidance for cutoff [...] Standards of Medical Care in Diabetes 2016, [place] Diabetes Association. Diabetes Care. 2016.39(Suppl 1). Performed By: #### 2 4321-2 #### [facility] CLIA [id number] 1 [place] [address] [place] Potassium [Moles/Vol] 4.7 mmol/L Normal 3.7-5.1 [facility] Comment on above: Order Comment: Raul hutson Type: BLOOD SPECIMEN Ordering Facility: [facility] Address: [address] [place] [address] Performed By: #### 2 4321-2 #### [facility] CLIA [id number] [address] Sodium [Moles/Vol] 139 mmol/L Normal 136-144 [facility] Comment on above: Order Comment: Speci men Type: BLOOD SPECIMEN Ordering Facility: [facility] Address: [address] [place] [address] Performed By: #### 2 4321-2 #### [facility] CLIA [id number] [address] [place] Urea nitrogen [Mass/Vol] 50 mg/dL High 9-24 [facility] Comment on above: Order Comment: Speci men Type: BLOOD SPECIMEN Ordering Facility: [facility] Address: [address] [place] [address] Performed By: #### 2 4321-2 #### [facility] CLIA [id number] [address] [place] CBC W/Diff, Automatedon 10-0 Absolute Neut Normal 2.0-7.7 [facility] Comment on above: Result Comment: Canc elled via OM: Order cancelled - Patient discharged Performed By: #### L 100.0100 ####[facility] [address] [place], [address] HCT Normal 40-54 [facility] Comment on above: Result Comment: Canc elled via OM: Order cancelled - Patient discharged Performed By: #### L 100.0100 ####[facility] [address] [place], [address] HGB Normal 13.0-16.5 [facility] Comment on above: Result Comment: Canc elled via OM: Order cancelled - Patient discharged Performed By: #### L 100.0100 ####[facility] [address] [place], [address] MCH Normal 27.0-32.0 [facility] Comment on above: Result Comment: Canc elled via OM: Order cancelled - Patient discharged Performed By: #### L 100.0100 ####[facility] [address] [place], [address] MCHC Normal 32-36 [facility] Comment on above: Result Comment: Canc elled via OM: Order cancelled - Patient discharged Performed By: #### L 100.0100 ####[facility] [address] [place], [address] MCV Normal 80-94 [facility] Comment on above: Result Comment: Canc elled via OM: Order cancelled - Patient discharged Performed By: #### L 100.0100 ####[facility] [address] [place], [address] NEUT% Normal 47-70 [facility] Comment on above: Result Comment: Canc elled via OM: Order cancelled - Patient discharged Performed By: #### L 100.0100 ####[facility] [address] [place], [address] PLT Normal 150-450 [facility] Comment on above: Result Comment: Canc elled via OM: Order cancelled - Patient discharged Performed By: #### L 100.0100 ####[facility] [address] [place], [address] RBC Normal 4.6-6.2 [facility] Comment on above: Result Comment: Canc elled via OM: Order cancelled - Patient discharged Performed By: #### L 100.0100 ####[facility] [address] [place], [address] RDW CV Normal 11.6-14.6 [facility] Comment on above: Result Comment: Canc elled via OM: Order cancelled - Patient discharged Performed By: #### L 100.0100 ####[facility] [address] [place], [address] RDW SD Normal 35.1-43.9 [facility] Comment on above: Result Comment: Canc elled via OM: Order cancelled - Patient discharged Performed By: #### L 100.0100 ####[facility] [address] [place], [address] WBC Normal 4.4-11.0 [facility] Comment on above: Result Comment: Canc elled via OM: Order cancelled - Patient discharged Performed By: #### L 100.0100 ####[facility] [address] [place], [address] CBC panel Auto (Bld)on 11-08 Erythrocyte distribution width (RBC) [Ratio] 15.9 % High 11.5-15.0 [facility] Comment on above: Order Comment: Speci men Type: BLOOD SPECIMEN Ordering Facility: [facility] Address: [address] [place] [address] Performed By: #### 2 4323-8, 2776-02, #### [facility] CLIA [id number] [address] [place] Hematocrit (Bld) [Volume fraction] 30.0 % Low 39.0-51.0 [facility] Comment on above: Order Comment: Speci caryl Type: BLOOD SPECIMEN Ordering Facility: [facility] Address: [address] [place] [address] Performed By: #### 2 4323-8, 27708-07, #### [facility] CLIA [id number] [address] [place] Hemoglobin (Bld) [Mass/Vol] 9.9 g/dL Low 13.0-17.0 [facility] Comment on above: Order Comment: Speci men Type: BLOOD SPECIMEN Ordering Facility: [facility] Address: [address] [place] [address] Performed By: #### 2 4323-8, 27708-07, #### [facility] CLIA [id number] [address] MCH (RBC) [Entitic mass] 31.0 pg Normal 26.0-34.0 [facility] Comment on above: Order Comment: Speci men Type: BLOOD SPECIMEN Ordering Facility: [facility] Address: [address] [place] [address] Performed By: #### 2 4323-8, 27708-07, #### [facility] CLIA [id number] [address] MCHC (RBC) [Mass/Vol] 33.0 g/dL Normal 30.5-36.0 [facility] Comment on above: Order Comment: Speci men Type: BLOOD SPECIMEN Ordering Facility: [facility] Address: [address] [place] [address] Performed By: #### 2 4323-8, 2776-02, #### [facility] CLIA [id number] [address] MCV (RBC) [Entitic vol] 94.0 fL Normal 80.0-100.0 [facility] Comment on above: Order Comment: Speci men Type: BLOOD SPECIMEN Ordering Facility: [facility] Address: [address] [place] [address] Performed By: #### 2 4323-8, 2776-02, #### [facility] CLIA [id number] [address] Nucleated RBC (Bld) [#/Vol] 10*3/uL Normal <0.01 [facility] Comment on above: Order Comment: Speci men Type: BLOOD SPECIMEN Ordering Facility: [facility] Address: [address] [place] [address] Performed By: #### 2 4323-8, 2776-02, #### [facility] CLIA [id number] [address] Platelet mean volume (Bld) [Entitic vol] 9.2 fL Normal 9.0-12.7 [facility] Comment on above: Order Comment: Speci men Type: BLOOD SPECIMEN Ordering Facility: [facility] Address: [address] [place] [address] Performed By: #### 2 4323-8, 2776-02, #### [facility] CLIA [id number] [address] STATES OF [facility] Platelets (Bld) [#/Vol] 141 10*3/uL Low 150-400 [facility] Comment on above: Order Comment: Speci men Type: BLOOD SPECIMEN Ordering Facility: [facility] Address: [address] [place] [address] Performed By: #### 2 4323-8, 2776-02, #### [facility] CLIA [id number] [address] [place] RBC (Bld) [#/Vol] 3.19 10*6/uL Low 4.20-6.00 [facility] Comment on above: Order Comment: Speci men Type: BLOOD SPECIMEN Ordering Facility: [facility] Address: [address] [place] [address] Performed By: #### 2 4323-8, 2776-02, #### [facility] CLIA [id number] [address] STATES OF [facility] WBC (Bld) [#/Vol] 10.05 10*3/uL Normal 3.70-11.00 [facility] Comment on above: Order Comment: Speci men Type: BLOOD SPECIMEN Ordering Facility: [facility] Address: [address] [place] [address] Performed By: #### 2 4323-8, 2776-02, #### [facility] CLIA [id number] [address] OF [place] Erythrocyte distribution width (RBC) [Ratio] 15.7 % High 11.5-15.0 [facility] Comment on above: Order Comment: Speci men Type: BLOOD SPECIMEN Ordering Facility: [facility] Address: [address] [place] [address] Performed By: #### 5 8410-2 #### [facility] CLIA [id number] [address] Hematocrit (Bld) [Volume fraction] 32.6 % Low 39.0-51.0 [facility] Comment on above: Order Comment: Speci men Type: BLOOD SPECIMEN Ordering Facility: [facility] Address: [address] [place] [address] Performed By: #### 5 8410-2 #### [facility] CLIA [id number] [address] Hemoglobin (Bld) [Mass/Vol] 10.4 g/dL Low 13.0-17.0 [facility] Comment on above: Order Comment: Speci men Type: BLOOD SPECIMEN Ordering Facility: [facility] Address: [address] [place] [address] Performed By: #### 5 8410-2 #### [facility] CLIA [id number] [address] MCH (RBC) [Entitic mass] 30.3 pg Normal 26.0-34.0 [facility] Comment on above: Order Comment: Speci men Type: BLOOD SPECIMEN Ordering Facility: [facility] Address: [address] [place] [address] Performed By: #### 5 8410-2 #### [facility] CLIA [id number] [address] MCHC (RBC) [Mass/Vol] 31.9 g/dL Normal 30.5-36.0 [facility] Comment on above: Order Comment: Speci men Type: BLOOD SPECIMEN Ordering Facility: [facility] Address: [address] [place] [address] Performed By: #### 5 8410-2 #### [facility] CLIA [id number] [address] MCV (RBC) [Entitic vol] 95.0 fL Normal 80.0-100.0 [facility] Comment on above: Order Comment: Speci men Type: BLOOD SPECIMEN Ordering Facility: [facility] Address: [address] [place] [address] Performed By: #### 5 8410-2 #### [facility] CLIA [id number] [address] [place] Nucleated RBC (Bld) [#/Vol] 10*3/uL Normal <0.01 [facility] Comment on above: Order Comment: Speci men Type: BLOOD SPECIMEN Ordering Facility: [facility] Address: [address] [place] [address] Performed By: #### 5 8410-2 #### [facility] CLIA [id number] [address] [place] Platelet mean volume (Bld) [Entitic vol] 8.9 fL Low 9.0-12.7 [facility] Comment on above: Order Comment: Speci men Type: BLOOD SPECIMEN Ordering Facility: [facility] Address: [address] [place] [address] Performed By: #### 5 8410-2 #### [facility] CLIA [id number] [address] [place] Platelets (Bld) [#/Vol] 151 10*3/uL Normal 150-400 [facility] Comment on above: Order Comment: Speci men Type: BLOOD SPECIMEN Ordering Facility: [facility] Address: [address] [place] [address] Performed By: #### 5 8410-2 #### [facility] CLIA [id number] [address] [place] RBC (Bld) [#/Vol] 3.43 10*6/uL Low 4.20-6.00 [facility] Comment on above: Order Comment: Speci men Type: BLOOD SPECIMEN Ordering Facility: [facility] Address: [address] [place] [address] Performed By: #### 5 8410-2 #### [facility] CLIA [id number] [address] [place] [address] [place] WBC (Bld) [#/Vol] 12.28 10*3/uL High 3.70-11.00 [facility] Comment on above: Order Comment: Speci men Type: BLOOD SPECIMEN Ordering Facility: [facility] Address: [facility] [place] [address] Performed By: #### 5 8410-2 #### [facility] CLIA [id number] [address] OF [facility] CNCRITCRon 11-08-2024 CNCRITCR Critical Care Transp ort (CCT) ABELARDO IVORY ([id number]) 1950 M Date Time Provider Department 11/08/24 ABIDA BERRY CCT During your visit today, we recorded the following information about you: Abida Berry, GM.[employer] 11/08/2024 2:49 AM Addendum Critical Care Transport Note Patient Name: Abelardo Ivory Service Date: 11/07/2024 Referring Physician: Jasmyne Accepting Physician: Yakov Referring Facility: [facility] Accepting Facility: [facility] SUBJECTIVE/CHIEF COMPLAINT: GI Bleed REASON FOR TRANSPORT: Specialty services not available at current facility History of Present Illness: The following history is what was known to CCT team at time of given care and summarized through: review of available medical records Abelardo Ivory is a 74 year old male with a past medical history significant for HTN, HLD, AVR and AAA repair who is current in treatment for bladder CA who presented to [place] ER with c/o bright red bloody stool. Upon arrival to the ER, he continued to have stool x 2 which appeared more dark with clots. Hbg 7.8. BP transiently in 70's and IVF and 2 units PRBC administered with good response. The patient was urgently taken to endoscopy for EGD and colonoscopy. Colonoscopy showed fryable tissue but negative for active bleeding. EGD showed bleeding gastric ulcer which was cauterized. The patient was started on Protonix infusion and transferred to ICU. No further bowel movements noted. Repeat Hbg 10.6. Lactate 2.2. No evidence of active bleeding. OSH physician with concern for re-bleed 2/2 tissue character and is requesting critical medical autolaunch to an IR capable facility. At this time, the physician managing the patient requested transfer to [facility] for tertiary and/or quaternary services unavailable at the referring facility. Patient condition at time of exam was: Acutely ill and critically ill. Due to the unique circumstances of the patient, it was determined that this was the closest, most appropriate facility by referring physician. The physician managing the patient requested the [facility] Critical Care Transport Team transport and treat the patient for the purpose of tertiary care, evaluation, and management of his critical condition(s). Air medical transport was requested to reduce the esb-ua-cnofzxyw time, 17 minutes by air vs. approximately 43 minutes by ground, with the potential for increased ground transport time secondary to: distance between facilities and the patient's condition requiring an emergent procedure or evaluation not available at the referring facility ROS: A complete review of systems was performed and is negative except as noted PAST MEDICAL HISTORY Diagnosis Date Abdominal aortic [...] LENS Left REMV CATARACT EXTRACAP,INSERT LENS Right ALLERGIES: Patient has no known allergies. SOCIAL HISTORY: SOCIAL HISTORY[1] FAMILY HISTORY Problem Relation Age of Onset Diabetes Mother Emphysema Mother Asthma Sister Kidney Disease Sister Aneurysm No Family History HOME MEDICATIONS: ondansetron (ZOFRAN) 8 mg tabletTake 1 tablet by mouth every 8 hours as needed (For chemotherapy induced nausea and vomiting.).Disp: 30 tabletRfl: 2 phenazopyridine (PYRIDIUM) 100 mg tabletTake 100 mg by mouth three times a day.Disp: Rfl: (Patient not taking: Reported on 10/02/2024) cholecalciferol, vitamin D3, (VITAMIN D-3) 10 mcg (400 unit) capTake 400 Units by mouth once daily.Disp: Rfl: amLODIPine (NORVASC) 5 mg tabletTake 5 mg by mouth once daily.Disp: Rfl: girmmgqdrgh-kranrmwqh-l ilanter (TRELEGY ELLIPTA) 200-62.5-25 mcg inhalation powderInhale 1 puff as instructed once daily.Disp: Rfl: acetaminophen (TYLENOL) 325 mg tabletTake 2 tablets by mouth every 4 hours.Disp: Rfl: rosuvastatin (CRESTOR) 5 mg tabletTake 5 mg by mouth daily at bedtime.Disp: Rfl: aspirin 81 mg chewable tabletTake 1 tablet by mouth on (more content not included)... 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 He received radiation treatment. Also has a history of AAA repair in 2021 and CABG with AVR in 2019. who presents with rectal bleeding. Presented to [facility] on 11/07/2024. Per chart review, initial Hgb 9.1 at 1555 and repeat Hgb 7.8 at 1757. Initial BP 83/60 with vitals last on at 1900 BP 78/55. CTA A/P obtained showed no active GI hemorrhage, mild wall thickening and inflammatory changes involving the proximal duodenum and distal rectosigmoid colon suggestive of enterocolitis. Nonspecific diarrheal illness with fluid in the colon. Per chart review, EGD and Colonoscopy performed at [facility]. EGD revealed spurting duodenal ulcer with a visible vessel, injected, treated with heater probe. Colonoscopy noted hematin throughout the entire examined colon. Patient was transferred to [facility] for IR capabilities and is presently admitted to ICU. Per chart review, she has received 2 uPRBC. No blood transfusions required this admission. GI consulted for GI bleeding. Upon assessment, patient resting in bed. Patient reports endorsing bright red blood per rectum that turned into dark stools. He recently underwent chemotherapy on 10/19/2024 ad radiation ib 10/22/2024. Reports that he takes aspirin at home. Denies NSAIDs. Denies being on other anticoagulation therapy. Reports not having stools since being at [place]. PAST MEDICAL HISTORY Diagnosis Date Abdominal aortic [...] Kidney Disease Sister Aneurysm No Family History SOCIAL HISTORY[1] MEDICATIONS: Prior to Admission Medications: ondansetron (ZOFRAN) 8 mg tabletTake 1 tablet by mouth every 8 hours as needed (For chemotherapy induced nausea and vomiting.).Disp: 30 tabletRfl: 2 phenazopyridine (PYRIDIUM) 100 mg tabletTake 100 mg by mouth three times a day.Disp: Rfl: (Patient not taking: Reported on 10/02/2024) cholecalciferol, vitamin D3, (VITAMIN D-3) 10 mcg (400 unit) capTake 400 Units by mouth once daily.Disp: Rfl: amLODIPine (NORVASC) 5 mg tabletTake 5 mg by mouth once daily.Disp: Rfl: pdnogsjbxih-pfqlhxqzj-w ilanter (TRELEGY ELLIPTA) 200-62.5-25 mcg inhalation powderInhale 1 puff as instructed once daily.Disp: Rfl: acetaminophen (TYLENOL) 325 mg tabletTake 2 tablets by mouth every 4 hours.Disp: Rfl: rosuvastatin (CRESTOR) 5 mg tabletTake 5 mg by mouth daily at bedtime.Disp: Rfl: aspirin 81 mg chewable tabletTake 1 tablet by mouth once daily.Disp: 30 tabletRfl: 0 albuterol HFA (PROAIR HFA) 90 mcg/actuation inhalerInhale 2 Puffs as instructed every 4 hours as needed for Wheezing/Shortness of Breath.Disp: 1 InhalerRfl: 1 metoprolol tartrate, short acting, (LOPRESSOR) 25 mg tabletTake 0.5 tablets by mouth every 12 hours.Disp: 30 tabletRfl: 1 Current Facility-Administered Medications Medication Dose Route Frequency ipratropium-albuterol 3 mL nebulizer solution (DUONEB) 3 mL INHALATION q 4 H while awake albuterol 2.5 mg /3 mL (0.083 %) 2.5 mg (PROVENTIL) 2.5 mg INHALATION q 6 H PRN NaCl 0.9% iv flush bag 20 mL INTRAVENOUS PRN pantoprazole 40 mg injection (PROTONIX) 40 mg INTRAVENOUS BID AC (0600/1600) lactated ringers iv infusion 100 mL/hr INTRAVENOUS CONTINUOUS cefTRIAXone iv piggyback 2 g in dextrose (iso-osmotic) 50 mL (ROCEPHIN) 2 g INTRAVENOUS q 24 H dextrose 15 gram/32 mL 15 g (TRUEPLUS) 15 g ORAL PRN Or (more content not included)... Normal [facility] CONSULT PROGotrung 11-08-2024 CONSULT PROG HNO ID: [id number] Author: MIRTA BONNER RPh Service: Pharmacy Author Type: Pharmacist Type: Consult Progress Note Filed: 11/08/2024 15:19 Note Text: PHARMACY VANCOMYCIN DOSING NOTE Patient Name: Abelardo Ivory Admission Date: 11/07/2024 Date of Consult: 11/08/2024 Time of Consult: 11:26 AM Indication: Urinary tract infection Goal Range: 10-20 mcg/mL RECOMMENDATIONS/PLAN: Pharmacy consulted for vancomycin dosing for Abelardo Ivory, a 74 year old male. 1. Patient is currently ordered Vancomycin 1 g IV once. Today is day 1 of therapy. 2. No vancomycin level has been drawn for this dosing regimen. 3. The present dose of vancomycin is the recommended dosage for this patient at this time. Continue therapy as prescribed. 4. The next vancomycin level has been ordered for 11/09 @ 1100. (Completed) We will follow patient renal function, vancomycin levels and doses with you during the course of therapy. Additional recommendations will appear in follow up notes. If you have any questions, please contact Mirta Bonner, PharmD, [facility]. Via [employer]. Age: [age] year old Allergies: ALLERGIES No Known Allergies Last 3 Encounter Wt Readings: Date: Wt: 11/07/2024 66.9 kg (147 lb 7.8 oz) 10/15/2024 66.2 kg (146 lb) 10/12/2024 66.7 kg (147 lb) Last 1 Encounter Ht Readings: Date: Ht: 11/07/2024 167.6 cm (5' 6) Estimated Creatinine Clearance: 30.9 mL/min (A) (based on SCr of 1.89 mg/dL (H)). Temp (24hrs), Av.6 ?C (97.9 ?F), Min:36.2 ?C (97.2 ?F), Max:37 ?C (98.6 ?F) - Current Temp: 36.6 ?C (97.9 ?F) Labs BUN (mg/dL) Date Value 11/08/2024 50 (H) 11/08/2024 51 (H) 10/01/2024 34 (H) Creatinine (mg/dL) Date Value 11/08/2024 1.89 (H) 11/08/2024 1.94 (H) 10/01/2024 2.06 (H) WBC (k/uL) Date Value 11/08/2024 10.05 11/08/2024 12.28 (H) 10/15/2024 3.90 Vancomycin Levels: No results found for: RAUL Bonner, [facility] CONSULT PROG HNO ID: [id number] Author: SAMINA LAO APRN.PATTERNMAKER HAND Service: Wound/Ostomy Author Type: Nurse Practitioner Type: Consult Progress Note Filed: 11/08/2024 10:19 Note Text: Summary: Inpatient Wound Care LONGWALL MACHINE OPERATOR HELPER WOUND CARE SERVICE CONSULT LONGWALL MACHINE OPERATOR HELPER NOTE SERVICE DATE: 11/08/2024 SERVICE TIME: 08:35 am REASON FOR CONSULT: Wound Consult (From admission, onward) Start Ordered 11/08/24 0130 Wound Care Consult ONCE Electronically Signed By: Katarina Moore MD [ ] 11/08/24 0121 My final recommendations will be communicated back to the requesting physician by way of shared Medical record. CHIEF COMPLAINT: no complaints of skin or wound issues Subjective HISTORY OF PRESENT ILLNESS: Mr. Ivory is a 74 year old male who is seen today with Stacey Wesley, Wound/marine equipment preservation inspector, and presented to hospital with complaints of GI bleed. Patient has past medical history of peptic ulcer disease, Bladder cancer, AAA, Aortic valve replacement, COPD, CAD, CKD, HTN, HLD. PERTINENT REVIEW OF SYSTEMS: GENERAL: denies fever or chills PAIN ASSESSMENT: admits to pain to back SKIN: denies wounds RESPIRATORY: denies Shortness of Breath or cough GI/: denies nausea or vomiting PAST MEDICAL HISTORY Diagnosis Date Abdominal aortic [...] LENS Left REMV CATARACT EXTRACAP,INSERT LENS Right SOCIAL HISTORY[1] FAMILY HISTORY Problem Relation Age of Onset Diabetes Mother Emphysema Mother Asthma Sister Kidney Disease Sister Aneurysm No Family History MEDICATIONS: Current Facility-Administered Medications Medication Dose Route Frequency ipratropium-albuterol 3 mL nebulizer solution (DUONEB) 3 mL INHALATION q 4 H while awake albuterol 2.5 mg /3 mL (0.083 %) 2.5 mg (PROVENTIL) 2.5 mg INHALATION q 6 H PRN NaCl 0.9% iv flush bag 20 mL INTRAVENOUS PRN pantoprazole 40 mg injection (PROTONIX) 40 mg INTRAVENOUS BID AC (0600/1600) lactated ringers iv infusion 100 mL/hr INTRAVENOUS CONTINUOUS cefTRIAXone iv piggyback 2 g in dextrose (iso-osmotic) 50 mL (ROCEPHIN) 2 g INTRAVENOUS q 24 H dextrose 15 gram/32 mL 15 g (TRUEPLUS) 15 g ORAL PRN Or glucagon 1 mg injection 1 mg INTRAMUSCULAR PRN Or dextrose 10% iv bolus 12.5 g INTRAVENOUS PRN ALLERGIES No Known Allergies Objective PHYSICAL EXAM: BP 128/72 Pulse 79 Temp 36.2 ?C (97.2 ?F) (Oral) Resp 18 Ht 167.6 cm (5' 6) Wt 66.9 kg (147 lb 7.8 oz) SpO2 95% BMI 23.81 kg/m? General appearance: alert and oriented male lying in ICU bed Respiratory: no Shortness of Breath noted; on oxygen per nasal canula Cardiovascular: faint pedal pulses bilaterally Extremities: ruby heel intact Integumentary: coccyx intact, Stage 1 to buttocks. DATA Labs: WBC 10.05 Presenting wound information: Wound 11/08/24 0000 Pressure Injury Buttock (Active) Assessments 11/08/2024 8:43 AM Wound Image IF PATIENT HAS A PRESSURE INJURY: WHEN WAS IT ACQUIRED? (Document one time during this admission) Present on Admission during this Encounter Pressure Injury Stage Stage 1 Site Assessment Red;Intact Kirstie-Wound Assessment Intact Shape no open wounds Drainage Amount None Dressing Foam- Adhesive Dressing Changed Reinforced Dressing Status Clean;Dry;Intact Wound Care Plan: Pressure injury prevention items: Turn and reposition patient every 2 hours, offload heels with boots or pillows. Wound care signing off. I spent a total of 35 minutes on the date of the service which included preparing to see the patient, ruxn-ut-tenn patient care, completing clinical documentation, obtaining and/or reviewing separately obtained history, performing a medically appropriate examination, and counseling and educating the patient/family/caregive r. Barriers to Healing: Age, Body habitus, Comorbid conditions, Compliance with care regimen, Critical care status, Mobility, and Moisture Pressure Injury Prevention: (more content not included)... Normal [facility] Calcium.ionized [Moles/Vol]o n 11-08-2024 Calcium.ionized (BldV) [Mass/Vol] 1.10 mmol/L Normal 1.08-1.30 [facility] Comment on above: Order Comment: Raul hutson Type: BLOOD SPECIMEN Ordering Facility: [facility] Address: [address] [place] [address] Performed By: #### 1 995-0 #### [facility] CLIA [id number] [address] [place] [address] [place] [facility] Calcium.ionized adjusted to pH 7.4 (Bld) [Moles/Vol] 1.02 mmol/L Low 1.08-1.30 [facility] Comment on above: Order Comment: Raul hutson Type: BLOOD SPECIMEN Ordering Facility: [facility] Address: [address] [place] [address] Performed By: #### 1 995-0 #### [facility] CLIA [id number] [address] [place] [address] [place] [facility] Comprehensive Metabolic Prof tata 11-08-2024 ALB Normal 3.4-4.8 [facility] Comment on above: Result Comment: Canc elled via OM: Order cancelled - Patient discharged Performed By: #### L 500.4050 ####[facility] [address] [place], [address] ALK PHOS Normal 40-129 [facility] Comment on above: Result Comment: Canc elled via OM: Order cancelled - Patient discharged Performed By: #### L 500.4050 ####[facility] [address] [place], [address] ALT Normal <=46 [facility] Comment on above: Result Comment: Canc elled via OM: Order cancelled - Patient discharged Performed By: #### L 500.4050 ####[facility] [address] [place], [address] AST Normal <=37 [facility] Comment on above: Result Comment: Canc elled via OM: Order cancelled - Patient discharged Performed By: #### L 500.4050 ####[facility] [address] [place], [address] BUN Normal 4-19 [facility] Comment on above: Result Comment: Canc elled via OM: Order cancelled - Patient discharged Performed By: #### L 500.4050 ####[facility] [address] [place], [address] BUN/CRE Normal 10-20 [facility] Comment on above: Result Comment: Canc elled via OM: Order cancelled - Patient discharged Performed By: #### L 500.4050 ####[facility] [address] [place], [address] Calcium Normal 7.6-11.0 [facility] Comment on above: Result Comment: Canc elled via OM: Order cancelled - Patient discharged Performed By: #### L 500.4050 ####[facility] [address] [place], [address] CL Normal 98-108 [facility] Comment on above: Result Comment: Canc elled via OM: Order cancelled - Patient discharged Performed By: #### L 500.4050 ####[facility] [address] [place], [address] CO2 Normal 21.0-32.0 [facility] Comment on above: Result Comment: Canc elled via OM: Order cancelled - Patient discharged Performed By: #### L 500.4050 ####[facility] [address] [place], [address] CREAT,SERUM Normal 0.70-1.20 [facility] Comment on above: Result Comment: Canc elled via OM: Order cancelled - Patient discharged Performed By: #### L 500.4050 ####[facility] [address] [place], [address] eGFR Normal >60 [facility] Comment on above: Result Comment: Canc elled via OM: Order cancelled - Patient discharged Performed By: #### L 500.4050 ####[facility] [address] [place], [address] GAP Normal 5-15 [facility] Comment on above: Result Comment: Canc elled via OM: Order cancelled - Patient discharged Performed By: #### L 500.4050 ####[facility] [address] [place], [address] GLU Normal 70-99 [facility] Comment on above: Result Comment: Canc elled via OM: Order cancelled - Patient discharged Performed By: #### L 500.4050 ####[facility] [address] [place], [address] Potassium Normal 3.3-5.1 [facility] Comment on above: Result Comment: Canc elled via OM: Order cancelled - Patient discharged Performed By: #### L 500.4050 ####[facility] [address] [place], [address] T BILI Normal 0.00-1.30 [facility] Comment on above: Result Comment: Canc elled via OM: Order cancelled - Patient discharged Performed By: #### L 500.4050 ####[facility] [address] [place], [address] T PROT Normal 5.9-8.4 [facility] Comment on above: Result Comment: Canc elled via OM: Order cancelled - Patient discharged Performed By: #### L 500.4050 ####[facility] [address] [place], [address] Comprehensive Metabolic Profil Normal 133-145 [facility] Comment on above: Result Comment: Canc elled via OM: Order cancelled - Patient discharged Performed By: #### L 500.4050 ####[facility] [address] [place], [address] Comprehensive metabolic 2000 panelon 11-08-2024 Albumin [Mass/Vol] 3.2 g/dL Low 3.9-4.9 [facility] Comment on above: Order Comment: Speci men Type: BLOOD SPECIMEN Ordering Facility: [facility] Address: [address] [place] [address] Performed By: #### 2 4323-8, 2777-1, 06162-9 #### [facility] CLIA [id number] [address] [place] [address] [place] ALP [Catalytic activity/Vol] 60 U/L Normal 38-113 [facility] Comment on above: Order Comment: Speci men Type: BLOOD SPECIMEN Ordering Facility: [facility] Address: [address] [place] [address] Performed By: #### 2 4323-8, 2776-02, #### [facility] CLIA [id number] [address] [place] [address] [place] ALT With P-5'-P [Catalytic activity/Vol] 9 U/L Low 10-54 [facility] Comment on above: Order Comment: Speci men Type: BLOOD SPECIMEN Ordering Facility: [facility] Address: [address] [place] [address] Performed By: #### 2 4323-8, 2776-02, #### [facility] CLIA [id number] [address] [place] Anion gap [Moles/Vol] 11 mmol/L Normal 8-15 [facility] Comment on above: Order Comment: Speci men Type: BLOOD SPECIMEN Ordering Facility: [facility] Address: [address] [place] [address] Performed By: #### 2 4323-8, 2776-02, #### [facility] CLIA [id number] [address] STATES OF [facility] AST With P-5'-P [Catalytic activity/Vol] 15 U/L Normal 14-40 [facility] Comment on above: Order Comment: Speci men Type: BLOOD SPECIMEN Ordering Facility: [facility] Address: [address] [place] [address] Performed By: #### 2 4323-8, 2776-02, #### [facility] CLIA [id number] [address] [place] Bilirubin [Mass/Vol] 0.3 mg/dL Normal 0.2-1.3 [facility] Comment on above: Order Comment: Speci men Type: BLOOD SPECIMEN Ordering Facility: [facility] Address: [address] [place] [address] Performed By: #### 2 4323-8, 27708-07, #### [facility] CLIA [id number] [address] [place] [address] [place] Calcium [Mass/Vol] 7.9 mg/dL Low 8.5-10.2 [facility] Comment on above: Order Comment: Speci men Type: BLOOD SPECIMEN Ordering Facility: [facility] Address: [address] [place] [address] Performed By: #### 2 4323-8, 2776-02, #### [facility] CLIA [id number] [address] [place] [address] [place] Chloride [Moles/Vol] 106 mmol/L Normal 98-107 [facility] Comment on above: Order Comment: Speci men Type: BLOOD SPECIMEN Ordering Facility: [facility] Address: [address] [place] [address] Performed By: #### 2 4323-8, 2776-02, #### [facility] CLIA [id number] [address] [place] [address] [place] [facility] CO2 [Moles/Vol] 22 mmol/L Normal 22-30 [facility] Comment on above: Order Comment: Speci men Type: BLOOD SPECIMEN Ordering Facility: [facility] Address: [address] [place] [address] Performed By: #### 2 4323-8, 2776-02, #### [facility] CLIA [id number] [address] [place] Creatinine [Mass/Vol] 1.94 mg/dL High 0.73-1.22 [facility] Comment on above: Order Comment: Speci men Type: BLOOD SPECIMEN Ordering Facility: [facility] Address: [address] [place] [address] Performed By: #### 2 4323-8, 2776-02, #### [facility] CLIA [id number] [address] [place] eGFRcr SerPlBld CKD-EPI 2021 36 mL/min/1.73m??? Low >=60 [facility] Comment on above: Order Comment: Speci men Type: BLOOD SPECIMEN Ordering Facility: [facility] Address: [address] [place] [id number] Result Comment: Amy mated Glomerular Filtration Rate [...] reflect actual GFR. Performed By: #### 2 4323-8, 27708-07, #### [facility] CLIA [id number] [address] [place] [address] [place] Glucose [Mass/Vol] 127 mg/dL High 74-99 [facility] Comment on above: Order Comment: Raul hutson Type: BLOOD SPECIMEN Ordering Facility: [facility] Address: [address] [place] [address] Result Comment: The [place] Diabetes Association (ADA) provides guidance for cutoff [...] Standards of Medical Care in Diabetes 2016, [place] [employer] Association. Diabetes Care. 2016.39(Suppl 1). Performed By: #### 2 4323-8, 2776-02, #### [facility] CLIA [id number] [address] [place] [address] [place] Potassium [Moles/Vol] 5.4 mmol/L High 3.7-5.1 [facility] Comment on above: Order Comment: Raul hutson Type: BLOOD SPECIMEN Ordering Facility: [facility] Address: [address] [place] [id number] Performed By: #### 2 4323-8, 2776-02, #### [facility] CLIA [id number] [address] [place] [address] [place] Protein [Mass/Vol] 5.3 g/dL Low 6.3-8.0 [facility] Comment on above: Order Comment: Speci men Type: BLOOD SPECIMEN Ordering Facility: [facility] Address: [address] [place] [address] Performed By: #### 2 4323-8, 27708-07, #### [facility] CLIA [id number] [address] [place] [address] [place] Sodium [Moles/Vol] 139 mmol/L Normal 136-144 [facility] Comment on above: Order Comment: Speci men Type: BLOOD SPECIMEN Ordering Facility: [facility] Address: [address] [place] [address] Performed By: #### 2 4323-8, 27708-07, #### [facility] CLIA [id number] [address] [place] [address] [place] Urea nitrogen [Mass/Vol] 51 mg/dL High 9-24 [facility] Comment on above: Order Comment: Speci men Type: BLOOD SPECIMEN Ordering Facility: [facility] Address: [address] [place] [address] Performed By: #### 2 4323-8, 27708-07, #### [facility] CLIA [id number] [address] [place] [address] [place] ECG COMPLETEon 11-08-2024 ECG COMPLETE Ventricular Rate : 7 6 BPM Atrial Rate : 76 BPM P-R Interval : 140 ms QRS Duration : 84 ms Q-T Interval : 374 ms QTC Calculation(Bazett) : 420 ms Calculated P Ren[place] : 80 degrees Calculated R Ren[place] : 79 degrees Calculated T Reno : 69 degrees NORMAL SINUS RHYTHM NORMAL ECG NO PREVIOUS ECGS AVAILABLE Confirmed by ORLANDO CALLE, SERGEI ([id number]) on 11/09/2024 5:54:16 AM NAME : ABELARDO IVORY PID : [id number] : 1950 Gender : Male Race : ORD : [id number] Procedure Date : Nov 08 2024 00:52:04 Edit Date : Nov 09 2024 05:54:26 Diagnosis: NORMAL SINUS RHYTHM NORMAL ECG NO PREVIOUS ECGS AVAILABLE Confirmed by SERGEI PERRY MD ([id number]) on 11/09/2024 5:54:16 AM Test Reason : yunier Location : [address] : [place] [address] Overread By : SERGEI PERRY MD Edited By : SERGEI PERRY MD Referred By : SUZANNE MEDLEY Acquired by : UNRULY CAN [facility] HH, Hemoglobin AND Hematocri ton 11-08-2024 HCT Normal 40-54 [facility] Comment on above: Result Comment: Canc elled via OM: Order cancelled - Patient discharged Performed By: #### L 100.0600 ####[facility] [address] [place], [address] HGB Normal 13.0-16.5 [facility] Comment on above: Result Comment: Canc elled via OM: Order cancelled - Patient discharged Performed By: #### L 100.0600 ####[facility] [address] [place], [address] HISTORY PHYSICALon HISTORY PHYSICAL HNO ID: [id number] Author: KATARINA MOORE MD Service: Critical Care Author Type: Physician Type: H&P Filed: 11/08/2024 06:01 Note Text: MICU HANDP PATIENT NAME: Abelardo Ivory REASON FOR ADMISSION: Acute blood loss from GI bleed DATE: November 08, 2024 Subjective HPI Mr. Abelardo Ivory is a 74 year old male with PMH: -Peptic ulcer disease -Bladder cancer s/p recent reported TURP and currently undergoing chemo -Hx of AAA s/p rupture s/p repair reported ~2021 -Hx aortic valve replacement -B/l carotid stenosis -COPD (last PFTs in EMR 04/17/2021 revealed moderately severe obstruction, with significant bronchodilator response by FVC criteria. Increased TLC indicating hyperinflation. RV + RV/TLC elevated indicating air trapping. Normal diffusing capacity). -CAD s/p CABG -CKD stage IIIb -HTN -HLD -Tobacco use Patient presented to [facility] on 11/07/2024 from [place], with complaints of sudden, large BRBPR at home, prompting ED visit. History was obtained from patient, paper chart from [place], and sign-out given by ICU ISADORA from helicopter. Portable DNR-DNI was also transported along with patient. In the ED, GI bleeding continued and reportedly darkened. SBP was reportedly in the 70s transiently. He underwent upper and lower endoscopies, which revealed a spurting duodenal ulcer with a visible vessel with injection/heater probe (I.e. was reportedly cauterized) although no formal upper endoscopy report was available. Colonoscopy report was notable for significant bleeding and significant amounts of friable tissue, thus prompting the decision to transferpatient to a facility equipped with IR. He received 2 units of pRBCs dueto the active bleed, with improvement in Hgb to 10.6 (was reportedly <8). Last lactate in [place] ICU was reportedly 2.2. He was also started on a pantoprazole drip and NS at 100 cc/hr. In addition, patient reported urinary frequency / incontinence and was noted to have positive UTI, for which he was given IV ceftriaxone. En route, he continued to have urinary incontinence, as well as penile pain for which he was given 2 doses of fentanyl 50 mcg (total 100 mcg). Also en route, he reportedly had O2 saturation in the 90s for which he was placed on 2L NC. On arrival at [facility], patient was hemodynamically stable on continuous IV fluids at 100 cc/hr, saturating 92% on 2L NC, and afebrile. He reports urinary incontinence, but no fevers, chills, sweats, chest pain, dyspnea, or abdominal pain. Review of Systems Constitutional: Negative for chills, diaphoresis and fever. Respiratory: Negative for chest tightness and shortness of breath. Cardiovascular: Negative for chest pain and leg swelling. Gastrointestinal: Positive for blood in stool. Negative for abdominal pain. PAST MEDICAL HISTORY Diagnosis Date Abdominal aortic [...] Kidney Disease Sister Aneurysm No Family History SOCIAL HISTORY[1] No current facility-administered medications on file prior to encounter. Current Outpatient Medications on File Prior to Encounter Medication Sig ondansetron (ZOFRAN) 8 mg tablet Take 1 tablet by mouth every 8 hours as needed (For chemotherapy induced nausea and vomiting.). phenazopyridine (PYRIDIUM) 100 mg tablet Take 100 mg by mouth three times a day. (Patient not taking: Reported on 10/02/2024) cholecalciferol, vitamin D3, (VITAMIN D-3) 10 mcg (400 unit) cap Take 400 Units by mouth once daily. amLODIPine (NORVASC) 5 mg tablet Take 5 mg by mouth once daily. corvxnophtr-zoaqrpnvo-n ilanter (TRELEGY ELLIPTA) 200-62.5-25 mcg inhalation powder Inhale 1 puff as instructed once daily. acetaminophen (TYLENOL) 325 mg tablet Take 2 tablets by mouth every 4 hours. rosuvastatin (CRESTOR) 5 mg tablet Take 5 mg by mouth daily at bedtime. aspirin 81 mg chewable tablet Take 1 tablet by mouth once daily. albuterol HFA (PROAIR HFA) 9 (more content not included)... Normal [facility] Hgb Bld-ncon 11-08-2024 Hemoglobin (Bld) [Mass/Vol] 9.0 g/dL Low 13.0-17.0 [facility] Comment on above: Order Comment: Speci men Type: BLOOD SPECIMENOrdering Facility: [facility] Address[address] [place] [address] Performed By: #### 7 18-7 ####[facility]ORY[facility]IA [id number] [place] [address] [place] Hemoglobin (Bld) [Mass/Vol] 9.5 g/dL Low 13.0-17.0 [facility] Comment on above: Order Comment: Speci men Type: BLOOD SPECIMENOrdering Facility: [facility] Address: [address] [place] [address] Performed By: #### 7 18-7 ####[facility]ORYCLIA [id number] [place] [id number] [place] Lactate (Bld) [Moles/Vol]on 11-08-2024 Lactate [Moles/Vol] 1.1 mmol/L Normal 0.5-2.2 [facility] Comment on above: Order Comment: Speci men Type: BLOOD SPECIMEN [facility] Facility: [facility] Address: [address] [place] [address] Performed By: #### 2 4323-8, 2777-, #### [facility] CLIA [id number] 1 [place] [address] [place] Magnesium SerPl-mCncon 11-08 Magnesium [Mass/Vol] 2.1 mg/dL Normal 1.7-2.3 [facility] Comment on above: Order Comment: Speci men Type: BLOOD SPECIMEN [facility] Facility[facility] Address: [address] [place] [address] Performed By: #### 2 4323-8, 2777-, #### [facility] CLIA [id number] 1 [place] [address] [place] Phosphate SerPl-mCncon 11-08 Phosphate [Mass/Vol] 4.4 mg/dL Normal 2.7-4.8 [facility] Comment on above: Order Comment: Speci men Type: BLOOD SPECIMEN [facility] Facility[facility] Address: [address] [place] [address] Performed By: #### 2 4323-8, 2777-, #### [facility] CLIA [id number] [address] OF [place] STAPHYLOCOCCUS AUREUS AND MR SA SCREEN, PCR, NASALon 11-08-2024 S. aureus and MRSA panel AMBER+probe (Nose) Not detected Normal Not Detected [facility] Comment on above: Order Comment: Speci men Type: SWAB [facility] Address: [address] [place] [address] Performed By: #### S APCR #### [facility] CLIA [id number] [address] OF [place] Urinalysis complete panel (U )on 11-08-2024 Bilirubin Ql (U) Negative Normal Negative [facility] Comment on above: Order Comment: Speci men Type: BLOOD SPECIMEN [facility] Address: [address] [place] [address] Performed By: #### 2 4323-8, 2776-02, #### [facility] CLIA [id number] [address] OF [place] Clarity (Unsp spec) Clear Normal Clear [facility] Comment on above: Order Comment: Speci men Type: BLOOD SPECIMEN [facility] Address: [address] [place] [address] Performed By: #### 2 4323-8, 2776-02, #### [facility] CLIA [id number] [address] OF [facility] Color (U) Light Yellow Normal yellow [facility] Comment on above: Order Comment: Speci men Type: BLOOD SPECIMEN [facility] Address: [address] [place] [address] Performed By: #### 2 4323-8, 2776-02, #### [facility] CLIA [id number] [address] [place] Glucose Test strip (U) [Mass/Vol] Trace Normal Trace, Negative [facility] Comment on above: Order Comment: Speci men Type: BLOOD SPECIMEN [facility] Facility: [facility] Address: [address] [place] [address] Performed By: #### 2 4323-8, 2776-02, #### [facility] CLIA [id number] [address] Hemoglobin Ql (U) 1+ Abnormal Negative, Trace [facility] Comment on above: Order Comment: Speci men Type: BLOOD SPECIMEN [facility] Facility[facility] Address: [address] [place] [address] Performed By: #### 2 4323-8, 2776-02, #### [facility] CLIA [id number] [address] OF [facility] Ketones Ql (U) Negative Normal Negative, Trace [facility] Comment on above: Order Comment: Speci men Type: BLOOD SPECIMEN [facility] Address: [address] [place] [address] Performed By: #### 2 4323-8, 2776-02, #### [facility] CLIA [id number] [address] Leukocyte esterase Test strip Ql (U) 250 Stef/uL Abnormal Negative, 25 Stef/uL [facility] Comment on above: Order Comment: Speci men Type: BLOOD SPECIMEN [facility] Address: [address] [place] [address] Performed By: #### 2 4323-8, 2776-02, #### [facility] CLIA [id number] [address] OF [place] Nitrite Ql (U) Negative Normal Negative [facility] Comment on above: Order Comment: Speci men Type: BLOOD SPECIMEN [facility] Address: [address] [place] [address] Performed By: #### 2 4323-8, 2776-02, #### [facility] CLIA [id number] [address] [place] [address] pH (U) 6.0 [pH] Normal 5.0-8.0 [facility] Comment on above: Order Comment: Speci men Type: BLOOD SPECIMEN [facility] Facility[facility] Address: [address] [place] [address] Performed By: #### 2 4323-8, 2776-02, #### [facility] CLIA [id number] [address] Protein (U) [Mass/Vol] 1+ Abnormal Trace , Negative [facility] Comment on above: Order Comment: Speci men Type: BLOOD SPECIMEN [facility] Address: [address] [place] [address] Performed By: #### 2 4323-8, 2776-02, #### [facility] CLIA [id number] [address] [place] [address] RBC LM.HPF (Urine sed) [#/Area] 11-25 /HPF Abnormal 0-3 /HPF [facility] Comment on above: Order Comment: Speci men Type: BLOOD SPECIMEN [facility] Address: [address] [place] [address] Performed By: #### 2 4323-8, 2776-02, #### [facility] CLIA [id number] [address] [place] [address] Specific gravity (U) [Rel density] 1.038 High 1.005-1.030 [facility] Comment on above: Order Comment: Speci men Type: BLOOD SPECIMEN [facility] Address: [address] [place] [address] Performed By: #### 2 4323-8, 2776-02, #### [facility] CLIA [id number] [address] Urobilinogen Ql (U) Normal Normal Normal [facility] Comment on above: Order Comment: Speci men Type: BLOOD SPECIMEN [facility] Address: [address] [place], [place] [address] [id number] Performed By: #### 2 4323-8, 2777-1, #### [facility] CLIA [id number] [address] OF [facility] WBC LM.HPF (Urine sed) [#/Area] /[HPF] Abnormal 0-5 /HPF [facility] Comment on above: Order Comment: Speci men Type: BLOOD SPECIMEN [facility] Address: [address] [place] [address] Performed By: #### 2 4323-8, 2777-1, #### [facility] CLIA [id number] 1 [place] [id number] [place] 12 Lead EKGon 11-07-2024 12 Lead EKG Normal [facility] Absolute lymphocyte countOrd ered By: Raymond Anthony on 11-07-2024 Lymphocytes Auto (Unsp spec) [#/Vol] 0.78 10*3/uL Low 0.83-4.51 [facility] Absolute neutrophil countOrd ered By: Raymond Anthony on 11-07-2024 Neutrophils (Bld) [#/Vol] 6.9 10*3/uL 2.0-7.7 [facility] Activated partial thrombopla stin time (aPTT) in platelet poor plasma by coagulation aOrdered By: Con Pena on 11-07-2024 aPTT Coag (PPP) [Time] 26.5 s 24.1-36.2 [facility] Anion gap in Serum or Plasma Ordered By: Con Pena on 11-07-2024 Anion gap [Moles/Vol] 12 mmol/L 5-15 [facility] Automated lymphocyte count a s percentage of total leukocytesOrdered By: Raymond Anthony on 11-07-2024 Lymphocytes/100 WBC Auto (Unsp spec) 9.2 % Low 19-41 [facility] BLRBCon 11-07-2024 LRBC Normal Neg [facility] Comment on above: Result Comment: [id number] ON LRBC TRANSFUSED 11/07/24 [id number] ON LRBC TRANSFUSED 11/07/241912 Performed By: #### B TS, BLRBC ####[facility] [address] [place], [place], [id number] BRCon 11-07-2024 RC Normal [facility] Comment on above: Result Comment: [id number] AP RC [id number] AP RC READY Performed By: #### B RC ####[facility] [address] [place], [place], [id number] Result Comment: [id number] AP RC READY BUN/creatinine ratioOrdered By: Con Pena on 11-07-2024 Urea nitrogen/Creatinine [Mass ratio] 22.4 mg/mg High 10- [facility] Basophil percentageOrdered B y: Raymond Anthony on 11-07-2024 Basophils/100 WBC (Bld) 0.5 % 0-1 [facility] Bilirubin Test strip Ql (U)O rdered By: Con Pena on 11-07-2024 Bilirubin Ql (U) Negative Negative [facility] Bilirubin, totalOrdered By: Conbarbra Pena on 11-07-2024 Bilirubin [Mass/Vol] 0.15 mg/dL 0.00-1.30 [facility] CBC W/Diff, Automatedon Absolute Lymph 0.78 X10 3/uL Low 0.83-4.51 [facility] Comment on above: Performed By: #### L 100.0100 ####[facility] [address] [place], [place], [id number] Absolute Neut 6.9 X10 3/uL Normal 2.0-7.7 [facility] Comment on above: Performed By: #### L 100.0100 ####[facility] [address] [place], [place], [id number] Basophils/100 WBC (Bld) 0.5 % Normal 0-1 [facility] Comment on above: Performed By: #### L 100.0100 ####[facility] [address] [place], [address] Eosinophils/100 WBC (Bld) 0.4 % Normal 0-5 [facility] Comment on above: Performed By: #### L 100.0100 ####[facility] [address] [place], [address] Erythrocyte distribution width (RBC) [Ratio] 15.3 % High 11.6-14.6 [facility] Comment on above: Performed By: #### L 100.0100 ####[facility] [address] [place], [address] Hematocrit (Bld) [Volume fraction] 33.7 % Low 40-54 [facility] Comment on above: Performed By: #### L 100.0100 ####[facility] [address] [place], [address] Hemoglobin (Bld) [Mass/Vol] 10.6 g/dL Low 13.0-16.5 [facility] Comment on above: Performed By: #### L 100.0100 ####[facility] [address] [place], [address] IG% 0.900 Normal 0.0-0.9 [facility] Comment on above: Result Comment: IG% - Immature Granulocytes (promyelocytes, myelocytes andmetamyelocytes) > 1% indicates that a LEFT SHIFT is Present. Performed By: #### L 100.0100 ####[facility] [address] [place], [address] Lymphocytes/100 WBC (Bld) 9.2 % Low 19-41 [facility] Comment on above: Performed By: #### L 100.0100 ####[facility] [address] [place], [address] MCH (RBC) [Entitic mass] 30.2 pg Normal 27.0-32.0 [facility] Comment on above: Performed By: #### L 100.0100 ####[facility] [address] [place], [address] MCHC (RBC) [Mass/Vol] 31.5 g/dL Low 32-36 [facility] Comment on above: Performed By: #### L 100.0100 ####[facility] [address] [place], [address] MCV (RBC) [Entitic vol] 96.0 fL High 80-94 [facility] Comment on above: Performed By: #### L 100.0100 ####[facility] [address] [place], [address] Monocytes/100 WBC (Bld) 8.1 % Normal 0-10 [facility] Comment on above: Performed By: #### L 100.0100 ####[facility] [address] [place], [address] Neutrophils/100 WBC (Bld) 80.9 % High 47-70 [facility] Comment on above: Performed By: #### L 100.0100 ####[facility] [address] [place], [address] Nucleated RBC (Bld) [#/Vol] 0 10*3/uL Normal 0-5 [facility] Comment on above: Performed By: #### L 100.0100 ####[facility] [address] [place], [address] Platelet mean volume (Bld) [Entitic vol] 8.9 fL Normal 6.2-12.0 [facility] Comment on above: Performed By: #### L 100.0100 ####[facility] [address] [place], [address] Platelets (Bld) [#/Vol] 156 10*3/uL Normal 150-450 [facility] Comment on above: Performed By: #### L 100.0100 ####[facility] [address] [place], [address] RBC (Bld) [#/Vol] 3.51 10*6/uL Low 4.6-6.2 [facility] Comment on above: Performed By: #### L 100.0100 ####[facility] [address] [place], [address] RDW SD 53.2 fl High 35.1-43.9 [facility] Comment on above: Performed By: #### L 100.0100 ####[facility] [address] [place], [address] WBC (Bld) [#/Vol] 8.5 10*3/uL Normal 4.4-11.0 [facility] Comment on above: Performed By: #### L 100.0100 ####[facility] [address] [place], [address] Absolute Lymph 1.27 X10 3/uL Normal 0.83-4.51 [facility] Comment on above: Performed By: #### L 100.0100, L503.6005, M100.7900, L500.4050, L501.2450 ####[facility] [address] [place], [address] Absolute Neut 8.2 X10 3/uL High 2.0-7.7 [facility] Comment on above: Performed By: #### L 100.0100, L503.6005, M100.7900, L500.4050, L501.2450 ####[facility] [address] [place], [address] Basophils/100 WBC (Bld) 0.6 % Normal 0-1 [facility] Comment on above: Performed By: #### L 100.0100, L503.6005, M100.7900, L500.4050, L501.2450 ####[facility] [address] [place], [address] Eosinophils/100 WBC (Bld) 1.1 % Normal 0-5 [facility] Comment on above: Performed By: #### L 100.0100, L503.6005, M100.7900, L500.4050, L501.2450 ####[facility] [address] [place], [address] Erythrocyte distribution width (RBC) [Ratio] 15.6 % High 11.6-14.6 [facility] Comment on above: Performed By: #### L 100.0100, L503.6005, M100.7900, L500.4050, L501.2450 ####[facility] [address] [place], [address] Hematocrit (Bld) [Volume fraction] 29.2 % Low 40-54 [facility] Comment on above: Performed By: #### L 100.0100, L503.6005, M100.7900, L500.4050, L501.2450 ####[facility] [address] [place], [address] Hemoglobin (Bld) [Mass/Vol] 9.1 g/dL Low 13.0-16.5 [facility] Comment on above: Performed By: #### L 100.0100, L503.6005, M100.7900, L500.4050, L501.2450 ####[facility] [address] [place], [address] IG% 0.700 Normal 0.0-0.9 [facility] Comment on above: Result Comment: IG% - Immature Granulocytes (promyelocytes, myelocytes andmetamyelocytes) > 1% indicates that a LEFT SHIFT is Present. Performed By: #### L 100.0100, L503.6005, M100.7900, L500.4050, L501.2450 ####[facility] [address] [place], [address] Lymphocytes/100 WBC (Bld) 11.8 % Low 19-41 [facility] Comment on above: Performed By: #### L 100.0100, L503.6005, M100.7900, L500.4050, L501.2450 ####[facility] [address] [place], [address] MCH (RBC) [Entitic mass] 30.2 pg Normal 27.0-32.0 [facility] Comment on above: Performed By: #### L 100.0100, L503.6005, M100.7900, L500.4050, L501.2450 ####[facility] [address] [place], [address] MCHC (RBC) [Mass/Vol] 31.2 g/dL Low 32-36 [facility] Comment on above: Performed By: #### L 100.0100, L503.6005, M100.7900, L500.4050, L501.2450 ####[facility] [address] [place], [address] MCV (RBC) [Entitic vol] 97.0 fL High 80-94 [facility] Comment on above: Performed By: #### L 100.0100, L503.6005, M100.7900, L500.4050, L501.2450 ####[facility] [address] [place], [address] Monocytes/100 WBC (Bld) 9.8 % Normal 0-10 [facility] Comment on above: Performed By: #### L 100.0100, L503.6005, M100.7900, L500.4050, L501.2450 ####[facility] [address] [place], [address] Neutrophils/100 WBC (Bld) 76.0 % High 47-70 [facility] Comment on above: Performed By: #### L 100.0100, L503.6005, M100.7900, L500.4050, L501.2450 ####[facility] [address] [place], [address] Nucleated RBC (Bld) [#/Vol] 0 10*3/uL Normal 0-5 [facility] Comment on above: Performed By: #### L 100.0100, L503.6005, M100.7900, L500.4050, L501.2450 ####[facility] [address] [place], [address] Platelet mean volume (Bld) [Entitic vol] 8.9 fL Normal 6.2-12.0 [facility] Comment on above: Performed By: #### L 100.0100, L503.6005, M100.7900, L500.4050, L501.2450 ####[facility] [facility] [address] [place], [address] Platelets (Bld) [#/Vol] 229 10*3/uL Normal 150-450 [facility] Comment on above: Performed By: #### L 100.0100, L503.6005, M100.7900, L500.4050, L501.2450 ####[facility] [address] [place], [address] RBC (Bld) [#/Vol] 3.01 10*6/uL Low 4.6-6.2 [facility] Comment on above: Performed By: #### L 100.0100, L503.6005, M100.7900, L500.4050, L501.2450 ####[facility] [address] [place], [address] RDW SD 55.2 fl High 35.1-43.9 [facility] Comment on above: Performed By: #### L 100.0100, L503.6005, M100.7900, L500.4050, L501.2450 ####[facility] [address] [place], [address] WBC (Bld) [#/Vol] 10.8 10*3/uL Normal 4.4-11.0 [facility] Comment on above: Performed By: #### L 100.0100, L503.6005, M100.7900, L500.4050, L501.2450 ####[facility] [address] [place], [address] CNPNon 11-07-2024 [facility] Tele[facility] (HEMAWS) ABELARDO IVORY ([id number]) 1950 M Date Time Provider Department 11/07/24 LAKEISHA DAWKINS During your visit today, we recorded the following information about you: Hermila Morse LPN 11/07/2024 10:47 AM Signed Pt states he just was in the bathroom and he passed a lot of blood with bowel movement. Has never had this happen before. Denies ever having an issue with hemorrhoids. Denies having any diarrhea. BM have been normal. Stomach cramps a few days ago, none the last few days. Finished Rad tx 10/29 F/U with Dr dawkins 11/09 F/U with Dr Banks 11/19 Has a colonoscopy with Dr Vences maybe in the next week, he is unsure what day it is right now. SUDHA Hernández Amber RN 11/08/2024 1:56 PM Addendum Care Coordination Triage Note Cancer [place] Situation: Patient reports Other blood in the stool, dysuria Background: Finished chemo 10/15. Assessment: Patient had a BM and noticed that he had bright red blood, mixed in with stool and on tissue paper. Patient stated, his BM was diarrhea loose and semi-solid consistency. Patient stated this is the first loose BM he has had recently. Denies straining with BM and denies pain with BM. Patient does not think he has hemorrhoids. Abdomen feels soft to patient, denies abdominal distention. Patient had abdominal cramps before BM today and stated he had a cramp on his right side for 1-2 days. Patient stated I had a cramp on the right side of my stomach and if I bumped my rib cage on the right side, my ribs were tender. Patient denies any abdominal tenderness or pain today. Patient also denies having any additional BM's today. Patient stated he has pain with urinating that started [address] Banks prescribed Macrobid last week for a UTI which he finished. Patient stated the pain is still there but it's not quite as bad. Patient also has urinary urgency but he feels this could be related to drinking too much fluids. Denies dizziness with standing, hematuria, N/V, fever, chills, abdominal pain today, falls, or recent injuries. Patient stated he feels fine otherwise and feels he has a slight cold right now, he is blowing my nose a lot in the morning. Denies sinus pain/pressure or other URI symptoms. Still holding ASA 81 mg. Patient was asked to check his vitals but he was not at home; patient was doing his laundry at the [facility]. Recommendations: Per RNCC, patient directed to: Emergency Room due to the issue being urgent. Will discuss with Dr. Dawkins. Reviewed s/s of when to go to the ED. Next OV is 11/[address] Dawkins. Matthew Gu RN November 07, 2024 11:15 AM Megha Knight 11/07/2024 2:25 PM Signed Patient called back stating he just passed more blood. He states it was quite a lot and dark. Patient requesting to speak with Matthew. Matthew Gu RN 11/07/2024 2:45 PM Signed Spoke to patient. Advised ED evaluation. Patient will go to [facility] ED. Patient stated he had another episode of diarrhea and noticed dark red blood mixed in the stool and while we were on the phone, he stated he was having another episode of diarrhea that appears to also have blood in the stool. Patient checked vitals, WNL. Denies fever, chills, dizziness, N/V, or abdominal pain. Patient will go to ED for evaluation. Matthew Gu RN Allergies As of Date: 11/07/2024 (No Known Allergies) Date Reviewed: 11/07/2024 Reviewed by: Mckinley Romero RN - Fully Assessed Reason for Visit: Hands Hanger - Other [3602] Cmt: Symptoms Prescriptions as of 11/08/2024 - ondansetron (ZOFRAN) 8 mg tablet Take [...] 5 mg by mouth once daily. - eeyecvlpmdk-luukfxlhd-z ilanter (TRELEGY ELLIPTA) 200-62.5-25 mcg inhalation powder Inhale 1 puff as instructed once daily. - acetaminophen (TYLENOL) 325 mg tablet Take 2 tablets by mouth every 4 hours. - rosuvastatin (CRESTOR) 5 mg tablet Take 5 mg by mouth daily at bedtime. - aspirin 81 mg chewable tablet Take 1 tablet by mouth once daily. - albuterol HFA (PROAIR HFA) 90 mcg/actuation inhaler Inhale 2 Puffs as instructed every 4 hours as needed for Wheezing/Shortness of Breath. - metoprolol tartrate, short acting, (LOPRESSOR) 25 mg tablet Take 0.5 tablets by mouth every 12 hours. Facility-Administered Medications as of 11/08/2024 - ipratropium-albuterol 3 mL nebulizer solution (DUONEB) - albuterol 2.5 mg /3 mL (0.083 %) 2.5 mg (PROVENTIL) - NaCl 0.9% iv flush bag - pantoprazole 40 mg injection (PROTONIX) - lactated ringers iv infusion - dextrose 15 gram/32 mL 1 (more content not included)... Normal [facility] CTA Abd/Pelvis W/WO Contrast on 11-07-2024 CTA Abd/Pelvis W/WO Contrast Normal [facility] Carbon dioxide, total [Moles /volume] in Central venous bloodOrdered By: Con Pena on 11-07-2024 CO2 [Moles/Vol] 22.6 mmol/L 21.0-32.0 [facility] Chest 1 View (Portable)on Chest 1 View (Portable) Normal [facility] Chloride assayOrdered By: Messi Pena on 11-07-2024 Chloride [Moles/Vol] 106 mmol/L 98-108 [facility] Colonoscopy Reporton 025 Colonoscopy Report Normal [facility] Comprehensive Metabolic Prof ilon 11-07-2024 Albumin [Mass/Vol] 3.3 g/dL Low 3.4-4.8 [facility] Comment on above: Performed By: #### L 100.0100, L503.6005, M100.7900, L500.4050, L501.2450 ####[facility] [address] [place], [address] Albumin/Globulin [Mass ratio] 1.4 {ratio} Normal 0.9-2.4 [facility] Comment on above: Performed By: #### L 100.0100, L503.6005, M100.7900, L500.4050, L501.2450 ####[facility] [address] [place], [address] ALK PHOS 68 U/L Normal 40-129 [facility] Comment on above: Performed By: #### L 100.0100, L503.6005, M100.7900, L500.4050, L501.2450 ####[facility] [address] [place], [address] ALT [Catalytic activity/Vol] 9 U/L Normal <=46 [facility] Comment on above: Performed By: #### L 100.0100, L503.6005, M100.7900, L500.4050, L501.2450 ####[facility] [address] [place], [address] AST [Catalytic activity/Vol] 14 U/L Normal <=37 [facility] Comment on above: Performed By: #### L 100.0100, L503.6005, M100.7900, L500.4050, L501.2450 ####[facility] [address] [place], [address] Bilirubin [Mass/Vol] 0.15 mg/dL Normal 0.00-1.30 [facility] Comment on above: Performed By: #### L 100.0100, L503.6005, M100.7900, L500.4050, L501.2450 ####[facility] [address] [place], [address] BUN/CRE 22.4 RATIO High 10-20 [facility] Comment on above: Performed By: #### L 100.0100, L503.6005, M100.7900, L500.4050, L501.2450 ####[facility] [address] [place], [address] Calcium [Mass/Vol] 8.3 mg/dL Normal 7.6-11.0 [facility] Comment on above: Performed By: #### L 100.0100, L503.6005, M100.7900, L500.4050, L501.2450 ####[facility] [address] [place], [address] Chloride [Moles/Vol] 106 mmol/L Normal 98-108 [facility] Comment on above: Performed By: #### L 100.0100, L503.6005, M100.7900, L500.4050, L501.2450 ####[facility] [address] [place], [address] CO2 [Moles/Vol] 22.6 mmol/L Normal 21.0-32.0 [facility] Comment on above: Performed By: #### L 100.0100, L503.6005, M100.7900, L500.4050, L501.2450 ####[facility] [address] [place], [address] Creatinine [Mass/Vol] 2.09 mg/dL High 0.70-1.20 [facility] Comment on above: Performed By: #### L 100.0100, L503.6005, M100.7900, L500.4050, L501.2450 ####[facility] [address] [place], [address] GAP 12 Normal 5-15 [facility] Comment on above: Performed By: #### L 100.0100, L503.6005, M100.7900, L500.4050, L501.2450 ####[facility] [address] [place], [address] GFR/1.73 sq M.predicted among non-blacks MDRD (S/P/Bld) [Vol rate/Area] 33 mL/min/{1.73_m2} Low >60 [facility] Comment on above: Result Comment: mL/m in/1.73m2 CKD-EPI Creatinine Equation (2020) Performed By: #### L 100.0100, L503.6005, M100.7900, L500.4050, L501.2450 ####[facility] [address] [place], [address] Globulin (S) [Mass/Vol] 2.4 g/dL Normal 2.2-4.2 [facility] Comment on above: Performed By: #### L 100.0100, L503.6005, M100.7900, L500.4050, L501.2450 ####[facility] [address] [place], [address] Glucose [Mass/Vol] 139 mg/dL High 70-99 [facility] Comment on above: Performed By: #### L 100.0100, L503.6005, M100.7900, L500.4050, L501.2450 ####[facility] [address] [place], [address] Potassium [Moles/Vol] 5.3 mmol/L High 3.3-5.1 [facility] Comment on above: Performed By: #### L 100.0100, L503.6005, M100.7900, L500.4050, L501.2450 ####[facility] [address] [place], [address] Sodium [Moles/Vol] 141 mmol/L Normal 133-145 [facility] Comment on above: Performed By: #### L 100.0100, L503.6005, M100.7900, L500.4050, L501.2450 ####[facility] [address] [place], [address] T PROT 5.7 g/dL Low 5.9-8.4 [facility] Comment on above: Performed By: #### L 100.0100, L503.6005, M100.7900, L500.4050, L501.2450 ####[facility] [address] [place], [address] Urea nitrogen [Mass/Vol] 47 mg/dL High 4-19 [facility] Comment on above: Performed By: #### L 100.0100, L503.6005, M100.7900, L500.4050, L501.2450 ####[facility] [address] [place], [address] EGD Reporton 11-07-2024 EGD Report Normal [facility] Emergency Department Summary on 11-07-2024 Emergency Department Summary Normal [facility] Eosinophil percentageOrdered By: Raymond Anthony on 11-07-2024 Eosinophils/100 WBC (Bld) 0.4 % 0-5 [facility] Erythrocyte distribution wid th ratioOrdered By: Raymond Anthony on 11-07-2024 Erythrocyte distribution width (RBC) [Ratio] 15.3 % High 11.6-14.6 [facility] Erythrocyte distribution wid th standard deviationOrdered By: Raymond Anthony on 11-07-2024 Erythrocyte distribution width (RBC) [Ratio] 53.2 fl High 35.1-43.9 [facility] Glomerular filtration rate ( GFR) estimation/1.73 sq m using serum, plasma, or whole bOrdered By: Con Pena on 11-07-2024 GFR/1.73 sq M.predicted among non-blacks MDRD (S/P/Bld) [Vol rate/Area] 33 mL/min/{1.73_m2} Low >60 [facility] Comment on above: mL/min/1.73m2 CKD-EP I Creatinine Equation (2020) H AND P Exam - Hospitaliston 11-07-2024 H&P Exam - Hospitalist Normal [facility] HH, Hemoglobin AND Hematocri ton 11-07-2024 Hematocrit (Bld) [Volume fraction] 32.8 % Low 40-54 [facility] Comment on above: Performed By: #### L 100.0600 ####[facility] [address] [place], [place], [id number]) Hemoglobin (Bld) [Mass/Vol] 10.4 g/dL Low 13.0-16.5 [facility] Comment on above: Performed By: #### L 100.0600 ####[facility] [address] [place], [address] Hematocrit Auto (Bld) [Volum e fraction]Ordered By: Suzanne Medley on 11-07-2024 Hematocrit (Bld) [Volume fraction] 32.8 % Low 40-54 [facility] Hemoglobinon 11-07-2024 Hemoglobin (Bld) [Mass/Vol] 7.8 g/dL Low 13.0-16.5 [facility] Comment on above: Performed By: #### L 100.1300 ####[facility] [address] [place], [place], [id number] Hemoglobin measurementOrdere d By: Suzanne Medley on 11-07-2024 Hemoglobin (Bld) [Mass/Vol] 10.4 g/dL Low 13.0-16.5 [facility] Immature granulocytes/100 WB C Auto (Bld)Ordered By: Raymond Anthony on 11-07-2024 Immature granulocytes/100 WBC (Bld) 0.900 % 0.0-0.9 [facility] Comment on above: IG% - Immature Granu locytes (promyelocytes, myelocytes and metamyelocytes) > 1% indicates that a LEFT SHIFT is Present. International normalized rat io (INR) calculationOrdered By: Con Pena on 11-07-2024 INR Coag (Bld) [Relative time] 1.1 {INR} [facility] Ketones Test strip Ql (U)Ord ered By: Conbarbra Pena on 11-07-2024 Ketones Ql (U) Negative Negative [facility] L501.4021on 11-07-2024 Trop T High Sen 16 ng/L Normal <=22 [facility] Comment on above: Performed By: #### L 501.4021 ####[facility] [address] [place], [place], [id number] Laboratory - Chemistry and C hemistry - challengeOrdered By: Con Pena on 11-07-2024 AST [Catalytic activity/Vol] 14 U/L <38 [facility] Lactic Acidon 11-07-2024 Lactate [Moles/Vol] 2.2 mmol/L Invalid Interpretation Code 0.0-2.0 [facility] Comment on above: Order Comment: Y Result Comment: Crit ical Result(s) Called [facility] at: 1649 by:EARL??Results read back by same. Performed By: #### L 100.0100, L503.6005, M100.7900, L500.4050, L501.2450 ####[facility] [address] [place], [place], [id number] Lactic acid measurementOrder ed By: Con Pena on 11-07-2024 Lactate [Moles/Vol] 2.2 mmol/L Critically high 0.0-2.0 [facility] Comment on above: Critical Result(s) C sergio OSEGUERA at: 1649 by: EARL Results read back by same. Lipaseon 11-07-2024 Lipase [Catalytic activity/Vol] 43 U/L Normal - [facility] Comment on above: Result Comment: Yumiko boyce note:LIPASE revised reference range effective 22.New Lipase methodology. Expected to produce lower valuesthan the previous assay method.NEW Reference Range: 13 - 75 U/L Performed By: #### L 100.0100, L503.6005, M100.7900, L500.4050, L501.2450 ####[facility] [address] [place], [address] Lipase measurementOrdered By : Con Pena on 11-07-2024 Lipase [Catalytic activity/Vol] 43 U/L [facility] Comment on above: Please note:LIPASE r evised reference range effective 22. New Lipase methodology. Expected to produce lower values than the previous assay method. NEW Reference Range: 13 - 75 U/L MCV (mean corpuscular volume ) determinationOrdered By: Raymond Anthony on 11-07-2024 MCV (RBC) [Entitic vol] 96.0 fL High 80-94 [facility] MR/CON.PCM.GIon 11-07-2024 MR/CON.PCM.GI Normal [facility] MR/OP.PROVATon 11-07-2024 MR/OP.PROVAT Normal [facility] MR/OP.PROVAT Normal [facility] MR/POSTOP.ANEon 11-07-2024 MR/POSTOP.ANE Normal [facility] MR/[id number] 11-07-2024 MR/POSTOPAN2 Normal [facility] Magnesiumon 11-07-2024 Magnesium [Mass/Vol] 2.1 mg/dL Normal 1.5-2.2 [facility] Comment on above: Order Comment: Comme nts: May add to ED labsComments: may add to ED labs Performed By: #### L 501.5200, L501.2300 ####[facility] [address] [place], [address] Magnesium measurement (mass/ volume)Ordered By: Suzanne Medley on 11-07-2024 Magnesium (Unsp spec) [Mass/Vol] 2.1 mg/dL 1.5-2.2 [facility] Mean corpuscular hemoglobin (MCH) determinationOrdered By: Raymond Anthony on 11-07-2024 MCH (RBC) [Entitic mass] 30.2 pg 27.0-32.0 [facility] Mean corpuscular hemoglobin concentration (MCHC) determinationOrdered By: Raymond Anthony on 11-07-2024 MCHC (RBC) [Mass/Vol] 31.5 g/dL Low 32-36 [facility] Mean platelet volume determi nationOrdered By: Raymond Anthony on 11-07-2024 Platelet mean volume (Bld) [Entitic vol] 8.9 fL 6.2-12.0 [facility] Microscopic analysis of urin e for red blood cells (RBC)Ordered By: Con Pena on 11-07-2024 Microscopic analysis of urine for red blood cells (RBC) 5-10 SEEN /hpf 0-5 [facility] Monocyte percentageOrdered B y: Raymond Anthony on 11-07-2024 Monocytes/100 WBC (Bld) 8.1 % 0-10 [facility] Mucus LM Ql (Urine sed)Order ed By: Con Pena on 11-07-2024 Mucus Ql (Urine sed) 0 SEEN /hpf [facility] Neutrophil percentageOrdered By: Raymond Anthony on 11-07-2024 Neutrophils/100 WBC (Bld) 80.9 % High 47-70 [facility] Nitrite Test strip Ql (U)Ord ered By: Con Pena on 11-07-2024 Nitrite Ql (U) Negative Negative [facility] Nucleated red blood cell per centageOrdered By: Raymond Anthony on 11-07-2024 Nucleated RBC/100 WBC (Bld) [Ratio] 0 % 0-5 [facility] Partial Thromboplast Timeon 11-07-2024 aPTT Coag (Bld) [Time] 26.5 s Normal 24.1-36.2 [facility] Comment on above: Performed By: #### L 300.4310, L300.3900 ####[facility] [address] [place], [address] Phosphoruson 11-07-2024 Phosphate [Mass/Vol] 4.5 mg/dL Normal 2.7-4.5 [facility] Comment on above: Order Comment: Comme nts: May add to ED labsComments: may add to ED labs Performed By: #### L 501.5200, L501.2300 ####[facility] [address] [place], [address] Platelet countOrdered By: Maged Anthony on 11-07-2024 Platelets (Bld) [#/Vol] 156 10*3/uL 150-450 [facility] Potassium measurement (mass/ volume)Ordered By: Con Pena on 11-07-2024 Potassium (Unsp spec) [Mass/Vol] 5.3 mmol/L High 3.3-5.1 [facility] Protein Test strip Ql (U)Ord ered By: Con Pena on 11-07-2024 Protein Ql (U) 100 mg/dl High Negative [facility] Prothrombin Time w/INRon INR Coag (PPP) [Relative time] 1.1 {INR} Normal [facility] Comment on above: Performed By: #### L 300.4310, L300.3900 ####[facility] [address] [place], [address] PT Coag (PPP) [Time] 14.5 s Normal 11.7-14.9 [facility] Comment on above: Performed By: #### L 300.4310, L300.3900 ####[facility] [address] [place], [place], [id number] Prothrombin timeOrdered By: Con Pena on 11-07-2024 PT Coag (PPP) [Time] 14.5 s 11.7-14.9 [facility] RBC Auto (Bld) [#/Vol]Ordere d By: Raymond Anthony on 11-07-2024 RBC (Bld) [#/Vol] 3.51 10*6/uL Low 4.6-6.2 [facility] Serum creatinine measurement (mass/volume)Ordered By: Con Pena on 11-07-2024 Creatinine [Mass/Vol] 2.09 mg/dL High 0.70-1.20 [facility] Serum globulin measurementOr dered By: Con Pena on 11-07-2024 Globulin (S) [Mass/Vol] 2.4 g/dL 2.2-4.2 [facility] Serum glucose measurement (m ass/volume)Ordered By: Con Pena on 11-07-2024 Glucose [Mass/Vol] 139 mg/dL High 70-99 [facility] Serum or plasma alanine perales otransferase (ALT) measurementOrdered By: Con Pena on 11-07-2024 ALT [Catalytic activity/Vol] 9 U/L <47 [facility] Serum or plasma albumin jamel urement (mass/volume)Ordered By: Con Rivers on 11-07-2024 Albumin [Mass/Vol] 3.3 g/dL Low 3.4-4.8 [facility] Serum or plasma albumin/glob ulin mass ratioOrdered By: Con Pena on 11-07-2024 Albumin/Globulin [Mass ratio] 1.4 {ratio} 0.9-2.4 [facility] Serum or plasma alkaline masha sphatase measurementOrdered By: Con Pena on 11-07-2024 ALP [Catalytic activity/Vol] 68 U/L 40-129 [facility] Serum or plasma calcium jamel urement (mass/volume)Ordered By: Con Rivers on 11-07-2024 Calcium [Mass/Vol] 8.3 mg/dL 7.6-11.0 [facility] Serum or plasma urea nitroge n measurement (mass/volume)Ordered By: Con Pena on 11-07-2024 Urea nitrogen [Mass/Vol] 47 mg/dL High 4-19 [facility] Sodium levelOrdered By: Milan Pena on 11-07-2024 Sodium [Moles/Vol] 141 mmol/L 133-145 [facility] Squamous epithelial cells de tection in urine sediment by light microscopyOrdered By: Con Pena on 11-07-2024 Epithelial cells.squamous LM Ql (Urine sed) 0-5 SEEN /hpf 0-5 [facility] [facility] Stool Occult Blood iFOBon STOB Positive Normal [facility] Comment on above: Performed By: #### L 100.0100, L503.6005, M100.7900, L500.4050, L501.2450 ####[facility] [address] [place], [place], [id number] Stool gastrointestinal hemog lobin detection by immunologic methodOrdered By: Con Pena on 11-07-2024 Lower GI hemoglobin IA Ql (Stl) Positive Abnormal [facility] Total proteinOrdered By: Dereje Pena on 11-07-2024 Protein [Mass/Vol] 5.7 g/dL Low 5.9-8.4 [facility] Transitional cells detection in urine sediment by light microscopyOrdered By: Con Pena on 11-07-2024 Transitional cells LM Ql (Urine sed) 0-5 SEEN /hpf 0-5 [facility] Troponin T HS 2 HRon 025 Trop T High Sen Normal <=22 [facility] Comment on above: Result Comment: JUWAN ENT DISCHARGED Performed By: #### L 499.0042 ####[facility] [address] [place], [address] Troponin T.cardiac [Mass/vol ume] in Serum or Plasma by High sensitivity methodOrdered By: Con Pena on 11-07-2024 Troponin T.cardiac High sensitivity method [Mass/Vol] 16 ng/L <22 [facility] Type AND Screenon 11-07-2024 Ab SCREEN GEL Negative Normal [facility] Comment on above: Order Comment: HGI Performed By: #### B TS, BLRBC ####[facility] [address] [place], [address] Urinalysis, Completeon 11-07 EPI,SQUAMOUS 0-5 SEEN Normal 0-5 [facility] Comment on above: Order Comment: COLLE CTOR TO SPECIFY Performed By: #### L 400.0001 ####[facility] [address] [place], [address] BACTERIA 2+ /hpf Normal None Seen [facility] Comment on above: Order Comment: COLLE CTOR TO SPECIFY Performed By: #### L 400.0001 ####[facility] [address] [place], [address] RBC 5-10 SEEN Normal 0-5 [facility] Comment on above: Order Comment: COLLE CTOR TO SPECIFY Performed By: #### L 400.0001 ####[facility] [address] [place], [address] EPI,TRANSITION 0-5 SEEN Normal 0-5 [facility] Comment on above: Order Comment: COLLE CTOR TO SPECIFY Performed By: #### L 400.0001 ####[facility] [address] [place], [address] WBC >100 SEEN Normal 0-5 [facility] Comment on above: Order Comment: COLLE CTOR TO SPECIFY Performed By: #### L 400.0001 ####[facility] [address] [place], [place], [address] Mucus Ql (Urine sed) 0 SEEN Normal [facility] Comment on above: Order Comment: COLLE CTOR TO SPECIFY Performed By: #### L 400.0001 ####[facility] [address] [place], [place], [address] Urine clarityOrdered By: Dereje Pena on 11-07-2024 Clarity (U) Cloudy Clear [facility] Urine color determinationOrd ered By: Con Pena on 11-07-2024 Color (U) Straw Yellow [facility] Urine glucose detectionOrder ed By: Con Pena on 11-07-2024 Glucose Ql (U) Normal mg/dl Normal [facility] Urine leukocyte esterase det ection by dipstickOrdered By: Con Pena on 11-07-2024 Leukocyte esterase Test strip Ql (U) 500 /ul High Negative [facility] Urine pHOrdered By: Con Devi on 11-07-2024 pH (U) 6.0 [pH] 5.0 - 8.0 [facility] Urine sediment bacteria coun t by microscopy (number/high power field)Ordered By: Con Pena on 11-07-2024 Bacteria LM.HPF (Urine sed) [#/Area] 2 /[HPF] None Seen [facility] Urine specific gravity measu rementOrdered By: Con Pena on 11-07-2024 Specific gravity (U) [Rel density] 1.015 1.002-1.030 [facility] Urine urobilinogen measureme ntOrdered By: Con Pena on 11-07-2024 Urobilinogen Ql (U) Normal mg/dl Normal [facility] White blood cell (WBC) count Ordered By: Raymond Anthony on 11-07-2024 WBC (Bld) [#/Vol] 8.5 10*3/uL 4.4-11.0 [facility] White blood cell countOrdere d By: Con Pena on 11-07-2024 White blood cell count >100 SEEN /hpf 0-5 [facility] Ale 10-29-2024 CNPN Telephone (RADTWS) ABELARDO IVORY ([id number]) 1950 M Date Time Provider Department 10/29/24 LUIGI BANKS RADTWS During your visit today, we recorded the following information about you: Unruly Diaz RN 10/29/2024 12:11 PM Signed Patient's UA came back positive for a UTI. I attempted to call pt to notify him of this and had to leave a message. Dr Banks has [facility] in a [facility] in [place]. Unruly Diaz RN 10/29/2024 1:09 PM Signed Pt returned call and transfer to [place] was unsuccessful. I called pt and left him another voicemail with my name and the office number to call in if he has further questions. Unruly Diaz RN 10/29/2024 1:13 PM Signed Pt returned phone call and below information was given to patient. He will fern picker the prescription and get started on the antibiotic today. Allergies As of Date: 10/29/2024 (No Known Allergies) Date Reviewed: 10/16/2024 Reviewed by: Nighat Hines, ANGELA - Fully Assessed Reason for Visit: Results [...] 5 mg by mouth once daily. - qofvpyiihnb-qkafzuxeq-q ilanter (TRELEGY ELLIPTA) 200-62.5-25 mcg inhalation powder [...] Encounter Status:Closed by UNRULY DIAZ on 10/29/24 [facility] Bacteria Ur Culton Bacteria identified Cx Nom (U) ORGANISM ID: [...] , Intermediate >32 , Resistant >64 Abnormal [facility] Comment on above: Performed By: #### 2 4356-8, 630-4 ####[facility] YUE [id number] [place] [address] [place] CNPMalina 10-26-2024 CNPN Telephone (HEMAWS) ABELARDO IVORY ([id number]) 1950 M Date Time Provider Department 10/26/24 LUIGI BANKS During your visit today, we recorded the following information about you: Nighat Hines RN 10/26/2024 12:53 PM Signed Pt. Called this [...] the past for this pain that Dr. Dawkins prescribed. Pt. Had no issues during radiation. [...] by: Nighat Hines RN - Fully Assessed Prescriptions as of 10/26/2024 [...] 5 mg by mouth once daily. - ishjqbxmpqm-yzxxvbtet-h ilanter (TRELEGY ELLIPTA) 200-62.5-25 mcg inhalation powder [...] Status:Closed by NIGHAT HINES on 10/26/24 Normal [facility] Urinalysis complete panel (U )on 10-26-2024 Bacteria LM.HPF (Urine sed) [#/Area] Negative Normal Negative [facility] Comment on above: Order Comment: Speci men Type: URINE SPECIMENOrdering Facility: [facility] Address: [address] [place] [address] Performed By: #### 2 4358-4, 382-8 ####[facility] [id number] [place] [address] [place] Bilirubin Ql (U) Negative Normal Negative [facility] Comment on above: Order Comment: Speci men Type: URINE SPECIMENOrdering Facility: [facility] Address: [address] [place] [address] Performed By: #### 2 4100-6, 366-9 ####[facility] LABIA [id number] [place] [address] [place] Clarity (Unsp spec) Turbid Abnormal Clear [facility] Comment on above: Order Comment: Speci men Type: URINE SPECIMENOrdering Facility: [facility] Address: [address] [place] [address] Performed By: #### 2 4356-8, 630-4 ####[facility] LABCLIA [id number] [address], [facility] [place] [facility] Color (U) Yellow Normal Yellow [facility] Comment on above: Order Comment: Speci men Type: URINE SPECIMENOrdering Facility: [facility] Address: [address] [place] [address] Performed By: #### 2 4356-8, 630-4 ####[facility] LABCLIA [id number] [address], [place] [address] [place] Epithelial cells LM.HPF (Urine sed) [#/Area] None Seen Normal [facility] Comment on above: Order Comment: Speci men Type: URINE SPECIMENOrdering Facility: [facility] Address: [address] [place] [address] Performed By: #### 2 4356, 630-4 ####[facility] LABCLIA [id number] [address], [facility] [place] [facility] [place] Glucose Test strip (U) [Mass/Vol] Negative Normal Negative [facility] Comment on above: Order Comment: Speci men Type: URINE SPECIMENOrdering Facility: [facility] Address: [address] [place] [address] Performed By: #### 2 4356-8, 630-4 ####[facility] LABCLIA [id number] [facility] [address] [place] [address] [place] Hemoglobin Ql (U) 2+ Abnormal Negative [facility] Comment on above: Order Comment: Speci men Type: URINE SPECIMENOrdering Facility: [facility] Address: [address] [place] [address] Performed By: #### 2 4356-8, 630-4 ####[facility] LABCLIA [id number] [address] [place] [address] [place] Hyaline casts (Urine sed) [#/Area] 1-3 /LPF Abnormal 0 /LPF [facility] Comment on above: Order Comment: Speci men Type: URINE SPECIMENOrdering Facility: [facility] Address: [address] [place] [address] Performed By: #### 2 4356-8, 630-4 ####[facility] LABCLIA [id number] [facility] [address], [place] [address] [place] Ketones Ql (U) Negative Normal Negative [facility] Comment on above: Order Comment: Speci men Type: URINE SPECIMENOrdering Facility: [facility] Address: [address] [place] [address] Performed By: #### 2 4356-8, 630-4 ####[facility] LABCLIA [id number] [address], [address] [place] Leukocyte esterase Test strip Ql (U) 2+ Abnormal Negative [facility] Comment on above: Order Comment: Speci men Type: URINE SPECIMENOrdering Facility: [facility] Address: [address] [place] [address] Performed By: #### 2 4356-8, 630-4 ####[facility] LABCLIA [id number] [address], [place] [address] [place] Nitrite Ql (U) Negative Normal Negative [facility] Comment on above: Order Comment: Speci men Type: URINE SPECIMENOrdering Facility: [facility] Address: [address] [place] [address] Performed By: #### 2 4356-8, 630-4 ####[facility] LABCLIA [id number] [place] [address] [place] pH (U) 6.5 [pH] Normal 5.0-8.0 [facility] Comment on above: Order Comment: Speci men Type: URINE SPECIMENOrdering Facility: [facility] Address: [address] [place] [address] Performed By: #### 2 4356-8, -4 ####[facility] LABIA [id number] [place] [address] [place] Protein (U) [Mass/Vol] 3+ Abnormal Negative [facility] Comment on above: Order Comment: Speci men Type: URINE SPECIMENOrdering Facility: [facility] Address: [address] [place] [address] Performed By: #### 2 4356-8, 4 ####[facility] LABIA [id number] [place] [address] [place] RBC LM.HPF (Urine sed) [#/Area] /[HPF] Abnormal 0-2 /HPF [facility] Comment on above: Order Comment: Speci men Type: URINE SPECIMENOrdering Facility: [facility] Address: [address] [place] [address] Performed By: #### 2 4356-8, ####[facility]ENTER[facility] [id number] [place] [address] [place] Specific gravity (U) [Rel density] 1.014 Normal 1.005-1.030 [facility] Comment on above: Order Comment: Speci men Type: URINE SPECIMENOrdering Facility: [facility] Address: [address] [place] [address] Performed By: #### 2 4356-8, ####[facility] LABIA [id number] [place] [address] [place] Urobilinogen Ql (U) 0.2 EU/dL Normal 0.2-1.0 EU/dL [facility] Comment on above: Order Comment: Speci men Type: URINE SPECIMENOrdering Facility: [facility] Address: [address] [place] [address] Performed By: #### 2 4356-8, -4 ####[facility] LABIA [id number] [place] [address] [place] WBC LM.HPF (Urine sed) [#/Area] /[HPF] Abnormal 0-5 /HPF [facility] Comment on above: Order Comment: Speci men Type: URINE SPECIMENOrdering Facility: [facility] Address: [address] [place] [address] Performed By: #### 2 4356-8, 630-4 ####[facility] LABCLIA [id number] [place] [id number] [place] CNOVon 10-16-2024 CNOV Office Visit (RADTWS ) ABELARDO IVORY ([id number]) 1950 M Date Time Provider Department 10/16/24 10:15 AM LUIGI BANKS During your visit [...] NAME: Abelardo Ivory PATIENT October 16, 2024 [facility] FACILITY/LOCATION: [place] NURSING NOTE TYPE: PROSTATE - MALE PELVIS Subjective Data No concerns voiced Additional Data Do you want to see a Conciliation Court Judge? No Status: Patient is male Stress Scale: On a scale of 0 to 10, what number best describes how much distress you have experienced in the past week?(0 being no distress and 10 being extreme distress) 1 Social work notified: Pt denied need to see social worker clinical at this time. Nursing Assessment Fatigue: increased [...] Bladder function: no problems. Urinary frequency (D/N): y05ivsz/2-3. SIGNED by: Nighat Hines RN Allergies As [...] 5 mg by mouth once daily. - dizcmhdefma-umspmyktv-y ilanter (TRELEGY ELLIPTA) 200-62.5-25 mcg inhalation powder [...] [D62] 02/12/2019 (more content not included)... Normal [facility] CBC W Auto Differential pane l (Bld)on 10-15-2024 Basophils (Bld) [#/Vol] [facility] Basophils/100 WBC (Bld) 0.5 % [facility] Differential cell count method Nom (Bld) Auto [facility] Eosinophils (Bld) [#/Vol] 0.12 10*3/uL [facility] Eosinophils/100 WBC (Bld) 3.1 % [facility] Erythrocyte distribution width (RBC) [Ratio] 14.6 % 11.5 - 15.0 % [facility] Hematocrit (Bld) [Volume fraction] 32.5 % Low 39.0 - 51.0 % [facility] Hemoglobin (Bld) [Mass/Vol] 10.7 g/dL Low 13.0 - 17.0 g/dL [facility] Immature granulocytes (Bld) [#/Vol] [facility] Immature granulocytes/100 WBC (Bld) 0.3 % [facility] Interpretation and review of laboratory results Abnormal [facility] Lymphocytes (Bld) [#/Vol] 0.83 10*3/uL Low [facility] Lymphocytes/100 WBC (Bld) 21.3 % [facility] MCH (RBC) [Entitic mass] 31.0 pg 26.0 - 34.0 pg [facility] MCHC (RBC) [Mass/Vol] 32.9 g/dL 30.5 - 36.0 g/dL [facility] MCV (RBC) [Entitic vol] 94.2 fL 80.0 - 100.0 fL [facility] Monocytes (Bld) [#/Vol] 0.61 10*3/uL [facility] Monocytes/100 WBC (Bld) 15.6 % [facility] Neutrophils (Bld) [#/Vol] 2.31 10*3/uL [facility] Neutrophils/100 WBC (Bld) 59.2 % [facility] Nucleated RBC (Bld) [#/Vol] [facility] Nucleated RBC/100 WBC (Bld) [Ratio] 0.0 % /100 WBC [facility] Platelet mean volume (Bld) [Entitic vol] 8.9 fL Low 9.0 - 12.7 fL [facility] Platelets (Bld) [#/Vol] 105 10*3/uL Low [facility] Comment on above: No clot detected. RBC (Bld) [#/Vol] 3.45 10*6/uL Low 4.20 - 6.0 0 m/uL [facility] WBC (Bld) [#/Vol] 3.90 10*3/uL [facility] Basophils (Bld) [#/Vol] 10*3/uL Normal <0.11 [facility] Comment on above: Order Comment: Speci men Type: BLOOD SPECIMENOrdering Facility: [facility] Address: [address] [place] [address] Performed By: #### 5 7021-8 ####[facility] MILLWNCLIA [id number] [place] [address] [place] Basophils/100 WBC (Bld) 0.5 % Normal [facility] Comment on above: Order Comment: Speci men Type: BLOOD SPECIMENOrdering Facility: [facility] Address: [address] [place] [address] Performed By: #### 5 7021-8 ####[facility] SPRINGSWILLIA [id number] [place] [address] [place] Differential cell count method Nom (Bld) Auto Normal [facility] Comment on above: Order Comment: Speci men Type: BLOOD SPECIMENOrdering Facility: [facility] Address: [address] [place] [address] Performed By: #### 5 7021-8 ####[facility]ENTERLIA [id number] [place] [address] [place] Eosinophils (Bld) [#/Vol] 0.12 10*3/uL Normal <0.46 [facility] Comment on above: Order Comment: Speci men Type: BLOOD SPECIMENOrdering Facility: [facility] Address: [address] [place] [address] Performed By: #### 5 7021-8 ####[facility] MILLLINCOLNNCLIA [id number] [place] [address] [place] Eosinophils/100 WBC (Bld) 3.1 % Normal [facility] Comment on above: Order Comment: Speci men Type: BLOOD SPECIMENOrdering Facility: [facility] Address: [address] [place] [address] Performed By: #### 5 7021-8 ####[facility] [id number] [place] [address] [place] Erythrocyte distribution width (RBC) [Ratio] 14.6 % Normal 11.5-15.0 [facility] Comment on above: Order Comment: Speci men Type: BLOOD SPECIMENOrdering Facility: [facility] Address: [address] [place] [address] Performed By: #### 5 7021-8 ####[facility] HOS[facility]ITALNCLI [id number] [place] [address] [place] Hematocrit (Bld) [Volume fraction] 32.5 % Low 39.0-51.0 [facility] Comment on above: Order Comment: Speci men Type: BLOOD SPECIMENOrdering Facility: [facility] Address: [address] [place] [address] Performed By: #### 5 7021-8 ####[facility] [id number] [place] [address] [place] Hemoglobin (Bld) [Mass/Vol] 10.7 g/dL Low 13.0-17.0 [facility] Comment on above: Order Comment: Speci men Type: BLOOD SPECIMENOrdering Facility: [facility] Address: [address] [place] [address] Performed By: #### 5 7021-8 ####[facility] [id number] [place] [address] [place] Immature granulocytes (Bld) [#/Vol] 10*3/uL Normal <0.10 [facility] Comment on above: Order Comment: Speci men Type: BLOOD SPECIMENOrdering Facility: [facility] Address: [address] [place] [address] Performed By: #### 5 7021-8 ####[facility]ITALNCLIA [id number] [place] [address] [place] [facility] Immature granulocytes/100 WBC (Bld) 0.3 % Normal [facility] Comment on above: Order Comment: Speci men Type: BLOOD SPECIMENOrdering Facility: [facility] Address: [address] [place] [address] Performed By: #### 5 7021-8 ####[facility]ITALNCLIA [id number] [place] [address] [place] Lymphocytes (Bld) [#/Vol] 0.83 10*3/uL Low 1.00-4.00 [facility] Comment on above: Order Comment: Speci men Type: BLOOD SPECIMENOrdering Facility: [facility] Address: [address] [place] [address] Performed By: #### 5 7021-8 ####[facility]ITALNCLIA [id number] [place] [address] [place] Lymphocytes/100 WBC (Bld) 21.3 % Normal [facility] Comment on above: Order Comment: Speci men Type: BLOOD SPECIMENOrdering Facility: [facility] Address: [address] [place] [address] Performed By: #### 5 7021-8 ####[facility]ITALNCLIA [id number] [place] [address] [place] MCH (RBC) [Entitic mass] 31.0 pg Normal 26.0-34.0 [facility] Comment on above: Order Comment: Speci men Type: BLOOD SPECIMENOrdering Facility: [facility] Address: [address] [place] [address] Performed By: #### 5 7021-8 ####[facility] H[facility]ITALNCLI [id number] [place] [address] [place] MCHC (RBC) [Mass/Vol] 32.9 g/dL Normal 30.5-36.0 [facility] Comment on above: Order Comment: Speci men Type: BLOOD SPECIMENOrdering Facility: [facility] Address: [address] [place] [address] Performed By: #### 5 7021-8 ####[facility] HOSPITALRICGREGORIOA [id number] [place] [address] [place] MCV (RBC) [Entitic vol] 94.2 fL Normal 80.0-100.0 [facility] Comment on above: Order Comment: Speci men Type: BLOOD SPECIMENOrdering Facility: [facility] Address: [address] [place] [address] Performed By: #### 5 7021-8 ####[facility]ITALRICBE[facility] [id number] [place] [address] [place] Monocytes (Bld) [#/Vol] 0.61 10*3/uL Normal <0.87 [facility] Comment on above: Order Comment: Speci men Type: BLOOD SPECIMENOrdering Facility: [facility] Address: [address] [place] [address] Performed By: #### 5 7021-8 ####[facility] HOSPITALHOLLYA [id number] [place] [address] [place] Monocytes/100 WBC (Bld) 15.6 % Normal [facility] Comment on above: Order Comment: Speci men Type: BLOOD SPECIMENOrdering Facility: [facility] Address: [address] [place] [address] Performed By: #### 5 7021-8 ####[facility] CENTERLIA [id number] [place] [address] [place] Neutrophils (Bld) [#/Vol] 2.31 10*3/uL Normal 1.45-7.50 [facility] Comment on above: Order Comment: Speci men Type: BLOOD SPECIMENOrdering Facility: [facility] Address: [address] [place] [address] Performed By: #### 5 7021-8 ####[facility] [id number] [place] [address] [place] Neutrophils/100 WBC (Bld) 59.2 % Normal [facility] Comment on above: Order Comment: Speci men Type: BLOOD SPECIMENOrdering Facility: [facility] Address: [address] [place] [address] Performed By: #### 5 7021-8 ####[facility] [id number] [place] [address] [place] Nucleated RBC (Bld) [#/Vol] 10*3/uL Normal <0.01 [facility] Comment on above: Order Comment: Speci men Type: BLOOD SPECIMENOrdering Facility: [facility] Address: [address] [place] [address] Performed By: #### 5 7021-8 ####[facility] [id number] [place] [address] [place] Nucleated RBC/100 WBC (Bld) [Ratio] 0.0 /100 WBC Normal [facility] Comment on above: Order Comment: Speci men Type: BLOOD SPECIMENOrdering Facility: [facility] Address: [address] [place] [address] Performed By: #### 5 7021-8 ####[facility] [id number] [place] [address] [place] Platelet mean volume (Bld) [Entitic vol] 8.9 fL Low 9.0-12.7 [facility] Comment on above: Order Comment: Speci men Type: BLOOD SPECIMENOrdering Facility: [facility] Address: [address] [place], [place] [address] Performed By: #### 5 7021-8 ####[facility] ANGELICAWNCLIA [id number] [place] [address] [place] Platelets (Bld) [#/Vol] 105 10*3/uL Low 150-400 [facility] Comment on above: Order Comment: Speci men Type: BLOOD SPECIMENOrdering Facility: [facility] Address: [address] [place] [address] Result Comment: No c lot detected. Performed By: #### 5 7021-8 ####[facility]ITALNCLIA [id number] [place] [address] [place] RBC (Bld) [#/Vol] 3.45 10*6/uL Low 4.20-6.00 [facility] Comment on above: Order Comment: Speci men Type: BLOOD SPECIMENOrdering Facility: [facility] Address: [address] [place] [address] Performed By: #### 5 7021-8 ####[facility]ITALNCLIA [id number] [place] [address] [place] WBC (Bld) [#/Vol] 3.90 10*3/uL Normal 3.70-11.00 [facility] Comment on above: Order Comment: Speci men Type: BLOOD SPECIMENOrdering Facility: [facility] Address: [address] [place] [address] Performed By: #### 5 7021-8 ####[facility]ITALNCLIA [id number] [address] [place] CNOVSPon 10-12-2024 CNOVSP Visit (SP) Office (HEMAWS) ALEJANDRAABELARDO Maria Ines ([id number]) 1950 M Date Time Provider Department 10/12/24 11:30 AM OTERO BOB LESLEYDERRICK During your visit today, we recorded the [...] and noticed debris in urine. Saw Dr. Winston. Had TURBT with chemo flush. Path below. Referred to [facility] b/c patient declined cystectomy. Per Dr. [...] ppd since age 15 years Pathology from [facility] reviewed at [facility]: A. Urinary bladder, transurethral resection: - [...] cough. Clear sputum. Sees Dr. Zuñiga at [facility]. Smokes about 1/2 ppd. No alcohol. [...] Take 5 mg by mouth once daily. wfkmlkxojmh-hsrvfisix-s ilanter (TRELEGY ELLIPTA) 200-62.5-25 mcg inhalation powder Inhale 1 puff as instructed once daily. acetaminophen (TYLENOL) 325 mg tablet Take 2 tablets by mouth every 4 hours. rosuvastatin (CRESTOR) 5 mg tablet Take 5 mg by mouth once (more content not included)... Normal [facility] CBC W Auto Differential pane l (Bld)on 10-09-2024 Basophils (Bld) [#/Vol] [facility] Basophils/100 WBC (Bld) 0.4 % [facility] Differential cell count method Nom (Bld) Auto [facility] Eosinophils (Bld) [#/Vol] 0.11 10*3/uL [facility] Eosinophils/100 WBC (Bld) 2.0 % [facility] Erythrocyte distribution width (RBC) [Ratio] 14.1 % 11.5 - 15.0 % [facility] Hematocrit (Bld) [Volume fraction] 32.7 % Low 39.0 - 51.0 % [facility] Hemoglobin (Bld) [Mass/Vol] 10.8 g/dL Low 13.0 - 17.0 g/dL [facility] Immature granulocytes (Bld) [#/Vol] [facility] Immature granulocytes/100 WBC (Bld) 0.4 % [facility] Interpretation and review of laboratory results Abnormal [facility] Lymphocytes (Bld) [#/Vol] 1.08 10*3/uL [facility] Lymphocytes/100 WBC (Bld) 19.4 % [facility] MCH (RBC) [Entitic mass] 30.9 pg 26.0 - 34.0 pg [facility] MCHC (RBC) [Mass/Vol] 33.0 g/dL 30.5 - 36.0 g/dL [facility] MCV (RBC) [Entitic vol] 93.4 fL 80.0 - 100.0 fL [facility] Monocytes (Bld) [#/Vol] 0.45 10*3/uL [facility] Monocytes/100 WBC (Bld) 8.1 % [facility] Neutrophils (Bld) [#/Vol] 3.88 10*3/uL [facility] Neutrophils/100 WBC (Bld) 69.7 % [facility] Nucleated RBC (Bld) [#/Vol] NINF [facility] Nucleated RBC/100 WBC (Bld) [Ratio] 0.0 % /100 WBC [facility] Platelet mean volume (Bld) [Entitic vol] 9.1 fL 9.0 - 12.7 fL [facility] Platelets (Bld) [#/Vol] 55 10*3/uL Low [facility] Comment on above: No clot detected. RBC (Bld) [#/Vol] 3.50 10*6/uL Low 4.20 - 6.0 0 m/uL [facility] WBC (Bld) [#/Vol] 5.56 10*3/uL [facility] Basophils (Bld) [#/Vol] 10*3/uL Normal <0.11 [facility] Comment on above: Order Comment: Speci men Type: BLOOD SPECIMENOrdering Facility: [facility] Address: [address] [place] [address] Performed By: #### 5 7021-8 ####[facility] [id number] [place] [address] [place] Basophils/100 WBC (Bld) 0.4 % Normal [facility] Comment on above: Order Comment: Speci men Type: BLOOD SPECIMENOrdering Facility: [facility] Address: [address] [place] [address] Performed By: #### 5 7021-8 ####[facility] CENTERLIA [id number] [place] [address] [place] Differential cell count method Nom (Bld) Auto Normal [facility] Comment on above: Order Comment: Speci men Type: BLOOD SPECIMENOrdering Facility: [facility] Address: [address] [place] [address] Performed By: #### 5 7021-8 ####[facility]A [id number] [place] [address] [place] Eosinophils (Bld) [#/Vol] 0.11 10*3/uL Normal <0.46 [facility] Comment on above: Order Comment: Speci men Type: BLOOD SPECIMENOrdering Facility: [facility] Address: [address] [place] [address] Performed By: #### 5 7021-8 ####[facility] [id number] [place] [address] [place] Eosinophils/100 WBC (Bld) 2.0 % Normal [facility] Comment on above: Order Comment: Speci men Type: BLOOD SPECIMENOrdering Facility: [facility] Address: [address] [place] [address] Performed By: #### 5 7021-8 ####[facility]ITALNCBEAR [facility] [id number] [place] [address] [place] Erythrocyte distribution width (RBC) [Ratio] 14.1 % Normal 11.5-15.0 [facility] Comment on above: Order Comment: Speci men Type: BLOOD SPECIMENOrdering Facility: [facility] Address: [address] [place] [address] Performed By: #### 5 7021-8 ####[facility] HOSPITALNCA [id number] [place] [address] [place] Hematocrit (Bld) [Volume fraction] 32.7 % Low 39.0-51.0 [facility] Comment on above: Order Comment: Speci men Type: BLOOD SPECIMENOrdering Facility: [facility] Address: [address] [place] [address] Performed By: #### 5 7021-8 ####[facility] HOSPITALNCLI [id number] [place] [address] [place] Hemoglobin (Bld) [Mass/Vol] 10.8 g/dL Low 13.0-17.0 [facility] Comment on above: Order Comment: Speci men Type: BLOOD SPECIMENOrdering Facility: [facility] Address: [address] [place] [address] Performed By: #### 5 7021-8 ####[facility] PANCHOA [id number] [place] [address] [place] Immature granulocytes (Bld) [#/Vol] 10*3/uL Normal <0.10 [facility] Comment on above: Order Comment: Speci men Type: BLOOD SPECIMENOrdering Facility: [facility] Address: [address] [place] [address] Performed By: #### 5 7021-8 ####[facility] HOSPITALHOLLYA [id number] [place] [address] [place] Immature granulocytes/100 WBC (Bld) 0.4 % Normal [facility] Comment on above: Order Comment: Speci men Type: BLOOD SPECIMENOrdering Facility: [facility] Address: [address] [place] [address] Performed By: #### 5 7021-8 ####[facility]A [id number] [place] [address] [place] Lymphocytes (Bld) [#/Vol] 1.08 10*3/uL Normal 1.00-4.00 [facility] Comment on above: Order Comment: Speci men Type: BLOOD SPECIMENOrdering Facility: [facility] Address: [address] [place] [address] Performed By: #### 5 7021-8 ####[facility] HOSPITALNCLIA [id number] [place] [address] [place] Lymphocytes/100 WBC (Bld) 19.4 % Normal [facility] Comment on above: Order Comment: Speci men Type: BLOOD SPECIMENOrdering Facility: [facility] Address: [address] [place] [address] Performed By: #### 5 7021-8 ####[facility] CENTERLIA [id number] [place] [address] [place] MCH (RBC) [Entitic mass] 30.9 pg Normal 26.0-34.0 [facility] Comment on above: Order Comment: Speci men Type: BLOOD SPECIMENOrdering Facility: [facility] Address: [address] [place] [address] Performed By: #### 5 7021-8 ####[facility] [id number] [place] [address] [place] MCHC (RBC) [Mass/Vol] 33.0 g/dL Normal 30.5-36.0 [facility] Comment on above: Order Comment: Speci men Type: BLOOD SPECIMENOrdering Facility: [facility] Address: [address] [place] [address] Performed By: #### 5 7021-8 ####[facility] [id number] [place] [address] [place] MCV (RBC) [Entitic vol] 93.4 fL Normal 80.0-100.0 [facility] Comment on above: Order Comment: Speci men Type: BLOOD SPECIMENOrdering Facility: [facility] Address: [address] [place] [address] Performed By: #### 5 7021-8 ####[facility] [id number] [place] [address] [place] Monocytes (Bld) [#/Vol] 0.45 10*3/uL Normal <0.87 [facility] Comment on above: Order Comment: Speci men Type: BLOOD SPECIMENOrdering Facility: [facility] Address: [address] [place] [address] Performed By: #### 5 7021-8 ####[facility] [id number] [place] [address] [place] Monocytes/100 WBC (Bld) 8.1 % Normal [facility] Comment on above: Order Comment: Speci men Type: BLOOD SPECIMENOrdering Facility: [facility] Address: [address] [place] [address] Performed By: #### 5 7021-8 ####[facility] CENTERLIA [id number] [place] [address] [place] Neutrophils (Bld) [#/Vol] 3.88 10*3/uL Normal 1.45-7.50 [facility] Comment on above: Order Comment: Speci men Type: BLOOD SPECIMENOrdering Facility: [facility] Address: [address] [place] [address] Performed By: #### 5 7021-8 ####[facility] [id number] [place] [address] [place] Neutrophils/100 WBC (Bld) 69.7 % Normal [facility] Comment on above: Order Comment: Speci men Type: BLOOD SPECIMENOrdering Facility: [facility] Address: [address] [place] [address] Performed By: #### 5 7021-8 ####[facility] CENTERLIA [id number] [place] [address] [place] Nucleated RBC (Bld) [#/Vol] 10*3/uL Normal <0.01 [facility] Comment on above: Order Comment: Speci men Type: BLOOD SPECIMENOrdering Facility: [facility] Address: [address] [place] [address] Performed By: #### 5 7021-8 ####[facility]A [id number] [place] [address] [place] Nucleated RBC/100 WBC (Bld) [Ratio] 0.0 /100 WBC Normal [facility] Comment on above: Order Comment: Speci men Type: BLOOD SPECIMENOrdering Facility: [facility] Address: [address] [place] [address] Performed By: #### 5 7021-8 ####[facility] ANGELICALINCOLNNCLIA [id number] [place] [address] [place] Platelet mean volume (Bld) [Entitic vol] 9.1 fL Normal 9.0-12.7 [facility] Comment on above: Order Comment: Speci men Type: BLOOD SPECIMENOrdering Facility: [facility] Address: [address] [place] [address] Performed By: #### 5 7021-8 ####[facility] HOSPITALNCA [id number] [place] [address] [place] Platelets (Bld) [#/Vol] 55 10*3/uL Low 150-400 [facility] Comment on above: Order Comment: Speci men Type: BLOOD SPECIMENOrdering Facility: [facility] Address: [address] [place] [address] Result Comment: No c lot detected. Performed By: #### 5 7021-8 ####[facility] HOSPITALRICA [id number] [place] [address] [place] RBC (Bld) [#/Vol] 3.50 10*6/uL Low 4.20-6.00 [facility] Comment on above: Order Comment: Speci men Type: BLOOD SPECIMENOrdering Facility: [facility] Address: [address] [place] [address] Performed By: #### 5 7021-8 ####[facility] H[facility]ITALNCLIA [id number] [place] [address] [place] WBC (Bld) [#/Vol] 5.56 10*3/uL Normal 3.70-11.00 [facility] Comment on above: Order Comment: Speci men Type: BLOOD SPECIMENOrdering Facility: [facility] Address: [address] [place], [place] [address] [place] [address] Performed By: #### 5 7021-8 ####[facility] [id number] [place] [address] [place] CNOVon 10-09-2024 CNOV Office Visit (RADTWS ) ALEJANDRAABELARDO Spann ([id number]) 1950 M Date Time Provider Department 10/09/24 10:15 AM LUIGI BANKS RADTWS During your visit today, we recorded the following information about you: Temperature Pulse Blood pressure 97.6 degrees 61/minute 105/63 Shreya Souza, RN 10/09/2024 10:02 AM Signed Radiation Therapy - Nursing Note (OTV) PATIENT NAME: Abelardo Ivory PATIENT October 09, 2024 [facility] FACILITY/LOCATION: [place] NURSING NOTE TYPE: PROSTATE - MALE PELVIS Subjective Data Pt states his pain is much in better, not taking pain meds much at this time Additional Data Do you want to see a Conciliation Court Judge? No Status: Patient is male Stress Scale: On a scale of 0 to 10, what number best describes how much distress you have experienced in the past week?(0 being no distress and 10 being extreme distress) 1 Social work notified: Pt denied need to see social worker clinical at this time. Nursing Assessment Fatigue: increased [...] Allergies) Date Reviewed: 10/09/2024 Reviewed by: Shreya Souza RN - Fully Assessed Reason for Visit: [...] 5 mg by mouth once daily. - artftmfgumb-vjpbxpbsu-i ilanter (TRELEGY ELLIPTA) 200-62.5-25 mcg inhalation powder [...] without r (more content not included)... Normal [facility] CNOVon 10-02-2024 CNOV Office Visit (RADTWS ) ABELARDO IVORY ([id number]) 1950 M Date Time Provider Department 10/02/24 10:15 AM LUIGI BANKS During your visit today, we recorded the following information about you: Temperature Pulse Respiration Blood pressure 98.2 degrees 59/minute 14/minute 148/74 Unruly Diaz RN 10/02/2024 10:20 AM Signed Radiation Therapy - Nursing Note (OTV) PATIENT NAME: Abelardo Ivory PATIENT October 02, 2024 [facility] FACILITY/LOCATION: [facility] NOTE TYPE: PROSTATE - MALE PELVIS Subjective Data No complaints Additional Data Do you want to see a Conciliation Court Judge? No Status: Patient is male Stress Scale: [...] 5 mg by mouth once daily. - oelmeutkhjg-bmkbqyrrz-j ilanter (TRELEGY ELLIPTA) 200-62.5-25 mcg inhalation powder [...] [D62] 02/12 (more content not included)... Normal [facility] CBC W Auto Differential pane l (Bld)on 10-01-2024 Basophils (Bld) [#/Vol] 0.03 10*3/uL [facility] Basophils/100 WBC (Bld) 0.7 % [facility] Differential cell count method Nom (Bld) Auto [facility] Eosinophils (Bld) [#/Vol] 0.04 10*3/uL [facility] Eosinophils/100 WBC (Bld) 0.9 % [facility] Erythrocyte distribution width (RBC) [Ratio] 13.8 % 11.5 - 15.0 % [facility] Hematocrit (Bld) [Volume fraction] 33.8 % Low 39.0 - 51.0 % [facility] Hemoglobin (Bld) [Mass/Vol] 10.9 g/dL Low 13.0 - 17.0 g/dL [facility] Immature granulocytes (Bld) [#/Vol] 0.03 10*3/uL [facility] Immature granulocytes/100 WBC (Bld) 0.7 % [facility] Interpretation and review of laboratory results Abnormal [facility] Lymphocytes (Bld) [#/Vol] 1.25 10*3/uL [facility] Lymphocytes/100 WBC (Bld) 28.7 % [facility] MCH (RBC) [Entitic mass] 30.4 pg 26.0 - 34.0 pg [facility] MCHC (RBC) [Mass/Vol] 32.2 g/dL 30.5 - 36.0 g/dL [facility] MCV (RBC) [Entitic vol] 94.4 fL 80.0 - 100.0 fL [facility] Monocytes (Bld) [#/Vol] 0.23 10*3/uL [facility] Monocytes/100 WBC (Bld) 5.3 % [facility] Neutrophils (Bld) [#/Vol] 2.78 10*3/uL [facility] Neutrophils/100 WBC (Bld) 63.7 % [facility] Nucleated RBC (Bld) [#/Vol] [facility] Nucleated RBC/100 WBC (Bld) [Ratio] 0.0 % /100 WBC [facility] Platelet mean volume (Bld) [Entitic vol] 8.9 fL Low 9.0 - 12.7 fL [facility] Platelets (Bld) [#/Vol] 107 10*3/uL Low [facility] RBC (Bld) [#/Vol] 3.58 10*6/uL Low 4.20 - 6.0 0 m/uL [facility] WBC (Bld) [#/Vol] 4.36 10*3/uL [facility] Basophils (Bld) [#/Vol] 0.03 10*3/uL Normal <0.11 [facility] Comment on above: Order Comment: Speci men Type: BLOOD SPECIMENOrdering Facility: [facility] Address: [address] [place] [address] Performed By: #### 5 7021-8 ####[facility] [id number] [address] OF [facility] Basophils/100 WBC (Bld) 0.7 % Normal [facility] Comment on above: Order Comment: Speci men Type: BLOOD SPECIMENOrdering Facility: [facility] Address: [address] [place] [address] Performed By: #### 5 7021-8 ####[facility] [id number] [place] [address] [place] Differential cell count method Nom (Bld) Auto Normal [facility] Comment on above: Order Comment: Speci men Type: BLOOD SPECIMENOrdering Facility: [facility] Address: [address] [place] [address] Performed By: #### 5 7021-8 ####[facility] [id number] [place] [address] [place] Eosinophils (Bld) [#/Vol] 0.04 10*3/uL Normal <0.46 [facility] Comment on above: Order Comment: Speci men Type: BLOOD SPECIMENOrdering Facility: [facility] Address: [address] [place] [address] Performed By: #### 5 7021-8 ####[facility] [id number] [place] [address] [place] Eosinophils/100 WBC (Bld) 0.9 % Normal [facility] Comment on above: Order Comment: Speci men Type: BLOOD SPECIMENOrdering Facility: [facility] Address: [address] [place] [address] Performed By: #### 5 7021-8 ####[facility] [id number] [place] [address] [place] Erythrocyte distribution width (RBC) [Ratio] 13.8 % Normal 11.5-15.0 [facility] Comment on above: Order Comment: Speci men Type: BLOOD SPECIMENOrdering Facility: [facility] Address: [address] [place] [address] Performed By: #### 5 7021-8 ####[facility] [id number] [place] [address] [place] Hematocrit (Bld) [Volume fraction] 33.8 % Low 39.0-51.0 [facility] Comment on above: Order Comment: Speci men Type: BLOOD SPECIMENOrdering Facility: [facility] Address: [address] [place] [address] Performed By: #### 5 7021-8 ####[facility] ANGELICALINCOLNNCLIA [id number] [place] [address] [place] Hemoglobin (Bld) [Mass/Vol] 10.9 g/dL Low 13.0-17.0 [facility] Comment on above: Order Comment: Speci men Type: BLOOD SPECIMENOrdering Facility: [facility] Address: [address] [place] [address] Performed By: #### 5 7021-8 ####[facility]ITALNCLIA [id number] [place] [address] [place] Immature granulocytes (Bld) [#/Vol] 0.03 10*3/uL Normal <0.10 [facility] Comment on above: Order Comment: Speci men Type: BLOOD SPECIMENOrdering Facility: [facility] Address: [address] [place] [address] Performed By: #### 5 7021-8 ####[facility]ITALNCLIA [id number] [place] [address] [place] Immature granulocytes/100 WBC (Bld) 0.7 % Normal [facility] Comment on above: Order Comment: Speci men Type: BLOOD SPECIMENOrdering Facility: [facility] Address: [address] [place] [address] Performed By: #### 5 7021-8 ####[facility]ITALNCLIA [id number] [place] [address] [place] Lymphocytes (Bld) [#/Vol] 1.25 10*3/uL Normal 1.00-4.00 [facility] Comment on above: Order Comment: Speci men Type: BLOOD SPECIMENOrdering Facility: [facility] Address: [address] [place] [address] Performed By: #### 5 7021-8 ####[facility] ANGELICAVelmaNCGREGORIOA [id number] [place] [address] [place] Lymphocytes/100 WBC (Bld) 28.7 % Normal [facility] Comment on above: Order Comment: Speci men Type: BLOOD SPECIMENOrdering Facility: [facility] Address: [address] [place] [address] Performed By: #### 5 7021-8 ####[facility] HOSPITALNCGREGORIOAristides [id number] [place] [address] [place] MCH (RBC) [Entitic mass] 30.4 pg Normal 26.0-34.0 [facility] Comment on above: Order Comment: Speci men Type: BLOOD SPECIMENOrdering Facility: [facility] Address: [address] [place] [address] Performed By: #### 5 7021-8 ####[facility] [id number] [place] [address] [place] MCHC (RBC) [Mass/Vol] 32.2 g/dL Normal 30.5-36.0 [facility] Comment on above: Order Comment: Speci men Type: BLOOD SPECIMENOrdering Facility: [facility] Address: [address] [place] [address] Performed By: #### 5 7021-8 ####[facility] HOS[facility]ITALNCLIA [id number] [place] [address] [place] MCV (RBC) [Entitic vol] 94.4 fL Normal 80.0-100.0 [facility] Comment on above: Order Comment: Speci men Type: BLOOD SPECIMENOrdering Facility: [facility] Address: [address] [place] [address] Performed By: #### 5 7021-8 ####[facility] H[facility]ITALNCLIA [id number] [place] [address] [place] Monocytes (Bld) [#/Vol] 0.23 10*3/uL Normal <0.87 [facility] Comment on above: Order Comment: Speci men Type: BLOOD SPECIMENOrdering Facility: [facility] Address: [address] [place] [address] Performed By: #### 5 7021-8 ####[facility] SPRINGSWNCLIA [id number] [place] [address] [place] Monocytes/100 WBC (Bld) 5.3 % Normal [facility] Comment on above: Order Comment: Speci men Type: BLOOD SPECIMENOrdering Facility: [facility] Address: [address] [place] [address] Performed By: #### 5 7021-8 ####[facility] H[facility]PITALNCLIA [id number] [place] [address] [place] Neutrophils (Bld) [#/Vol] 2.78 10*3/uL Normal 1.45-7.50 [facility] Comment on above: Order Comment: Speci men Type: BLOOD SPECIMENOrdering Facility: [facility] Address: [address] [place] [address] Performed By: #### 5 7021-8 ####[facility]ITALNCLIA [id number] [place] [address] [place] Neutrophils/100 WBC (Bld) 63.7 % Normal [facility] Comment on above: Order Comment: Speci men Type: BLOOD SPECIMENOrdering Facility: [facility] Address: [address] [place] [address] Performed By: #### 5 7021-8 ####[facility]ITALNCLIA [id number] [place] [address] [place] Nucleated RBC (Bld) [#/Vol] 10*3/uL Normal <0.01 [facility] Comment on above: Order Comment: Speci men Type: BLOOD SPECIMENOrdering Facility: [facility] Address: [address] [place] [address] Performed By: #### 5 7021-8 ####[facility] JOAQUINNCSATISH [id number] [place] [address] [place] Nucleated RBC/100 WBC (Bld) [Ratio] 0.0 /100 WBC Normal [facility] Comment on above: Order Comment: Speci men Type: BLOOD SPECIMENOrdering Facility: [facility] Address: [address] [place] [address] Performed By: #### 5 7021-8 ####[facility]ITALNCLIA [id number] [place] [address] [place] Platelet mean volume (Bld) [Entitic vol] 8.9 fL Low 9.0-12.7 [facility] Comment on above: Order Comment: Speci men Type: BLOOD SPECIMENOrdering Facility: [facility] Address: [address] [place] [address] Performed By: #### 5 7021-8 ####[facility]ITALNCLIA [id number] [place] [address] [place] Platelets (Bld) [#/Vol] 107 10*3/uL Low 150-400 [facility] Comment on above: Order Comment: Speci men Type: BLOOD SPECIMENOrdering Facility: [facility] Address: [address] [place] [address] Performed By: #### 5 7021-8 ####[facility]ITALNCLIA [id number] [place] [address] [place] RBC (Bld) [#/Vol] 3.58 10*6/uL Low 4.20-6.00 [facility] Comment on above: Order Comment: Speci men Type: BLOOD SPECIMENOrdering Facility: [facility] Address: [address] [id number] Performed By: #### 5 7021-8 ####[facility] ANGELICALINCOLNNCLIA [id number] [place] [address] [facility] OF [place] WBC (Bld) [#/Vol] 4.36 10*3/uL Normal 3.70-11.00 [facility] Comment on above: Order Comment: Speci men Type: BLOOD SPECIMENOrdering Facility: [facility] Address: [address] [place], [place] [address] Performed By: #### 5 7021-8 ####[facility]ITALNCLIA [id number] [place] [address] [facility] Comprehensive metabolic 2000 panelOrdered By: Rissa Browning on 10-01-2024 Albumin [Mass/Vol] 3.9 g/dL 3.9 - 4.9 g/dL [facility] ALP [Catalytic activity/Vol] 59 U/L 38 - 113 U/L [facility] ALT [Catalytic activity/Vol] 5 U/L Low 10 - 54 U/L [facility] Anion gap [Moles/Vol] 10 mmol/L 8 - 15 mmol/L [facility] AST [Catalytic activity/Vol] 9 U/L Low 14 - 40 U/L [facility] Bilirubin [Mass/Vol] 0.3 mg/dL 0.2 - 1 .3 mg/dL [facility] Calcium [Mass/Vol] 9.0 mg/dL 8.5 - 10. 2 mg/dL [facility] Chloride [Moles/Vol] 108 mmol/L High 98 - 10 7 mmol/L [facility] CO2 [Moles/Vol] 22 mmol/L 22 - 30 mmol/L [facility] Creatinine [Mass/Vol] 2.06 mg/dL High 0.73 - 1.22 mg/dL [facility] GFR/1.73 sq M.predicted among non-blacks MDRD (S/P/Bld) [Vol rate/Area] 33 mL/min/{1.73_m2} Low - PINF [facility] Comment on above: Estimated Glomerular Filtration Rate (eGFR) is calculated using the 2021 CKD-EPI creatinine equation. This equation utilizes serum creatinine, sex, and age as parameters. The creatinine assay has traceable calibration to isotope dilution-mass spectrometry. Refer to KDIGO guidelines for clinical interpretation. In patients with unstable renal function, e.g. those with acute kidney injury, the eGFR may not accurately reflect actual GFR. Glucose [Mass/Vol] 101 mg/dL High 74 - 99 mg/dL [facility] Comment on above: The [place] Diabete s Association (ADA) provides guidance for [...] Standards of Medical Care in Diabetes 2016, [place] Diabetes Association. Diabetes Care. 2016.39(Suppl 1). Interpretation and review of laboratory results Abnormal [facility] Potassium [Moles/Vol] 4.6 mmol/L 3.7 - 5.1 mmol/L [facility] Protein [Mass/Vol] 6.3 g/dL 6.3 - 8.0 g/dL [facility] Sodium [Moles/Vol] 140 mmol/L 136 - 144 mmol/L [facility] Urea nitrogen [Mass/Vol] 34 mg/dL High 9 - 24 mg/dL [facility] Comprehensive metabolic 2000 panelon 10-01-2024 Albumin [Mass/Vol] 3.9 g/dL Normal 3.9-4.9 [facility] Comment on above: Order Comment: Speci men Type: BLOOD SPECIMENOrdering Facility: [facility] Address: [facility] [place] [address] Performed By: #### 2 4323-8 ####[facility] HOSPITALBRIAN [id number] [place] [address] [place] ALP [Catalytic activity/Vol] 59 U/L Normal 38-113 [facility] Comment on above: Order Comment: Speci men Type: BLOOD SPECIMENOrdering Facility: [facility] Address: [address] [place] [address] Performed By: #### 2 4323-8 ####[facility] MILLTOWNCLIA [id number] [place] [address] [place] ALT [Catalytic activity/Vol] 5 U/L Low 10-54 [facility] Comment on above: Order Comment: Speci men Type: BLOOD SPECIMENOrdering Facility: [facility] Address: [address] [place] [address] Performed By: #### 2 4323-8 ####[facility] MILLTOWNCLIA [id number] [place] [address] [place] Anion gap [Moles/Vol] 10 mmol/L Normal 8-15 [facility] Comment on above: Order Comment: Speci men Type: BLOOD SPECIMENOrdering Facility: [facility] Address: [address] [place] [address] Performed By: #### 2 4323-8 ####[facility] MILLTOWNCLIA [id number] [place] [address] [place] AST [Catalytic activity/Vol] 9 U/L Low 14-40 [facility] Comment on above: Order Comment: Speci men Type: BLOOD SPECIMENOrdering Facility: [facility] Address: [address] [place] [address] Performed By: #### 2 4323-8 ####[facility] MILLTOWNCLIA [id number] [place] [address] [place] Bilirubin [Mass/Vol] 0.3 mg/dL Normal 0.2-1.[address] [facility] Comment on above: Order Comment: Speci men Type: BLOOD SPECIMENOrdering Facility: [facility] Address: [address] [place] [address] Performed By: #### 2 4323-8 ####[facility] SPRINGSWNCLIA [id number] [place] [address] [place] Calcium [Mass/Vol] 9.0 mg/dL Normal 8.5-10.2 [facility] Comment on above: Order Comment: Speci men Type: BLOOD SPECIMENOrdering Facility: [facility] Address: [address] [place] [address] Performed By: #### 2 4323-8 ####[facility] MILLTOWNCLIA [id number] [place] [address] [place] Chloride [Moles/Vol] 108 mmol/L High 98-[address] [facility] Comment on above: Order Comment: Speci men Type: BLOOD SPECIMENOrdering Facility: [facility] Address: [address] [place] [address] Performed By: #### 2 4323-8 ####[facility] SPRINGSWNCLIA [id number] [place] [address] [place] CO2 [Moles/Vol] 22 mmol/L Normal 22-30 [facility] Comment on above: Order Comment: Speci men Type: BLOOD SPECIMENOrdering Facility: [facility] Address: [address] [place] [address] Performed By: #### 2 4323-8 ####[facility] MILLWNCLIA [id number] [place] [address] [place] Creatinine [Mass/Vol] 2.06 mg/dL High 0.73-1.22 [facility] Comment on above: Order Comment: Speci men Type: BLOOD SPECIMENOrdering Facility: [facility] Address: [address] [place] [address] Performed By: #### 2 4323-8 ####[facility] MILLWNCLIA [id number] [place] [address] [place] eGFRcr SerPlBld CKD-EPI 2021 33 mL/min/1.73m??? Low >=60 [facility] Comment on above: Order Comment: Raul hutson Type: BLOOD SPECIMENOrdering Facility: [facility] Address: [address] [place] [address] Result Comment: Amy mated Glomerular Filtration Rate [...] actual GFR. Performed By: #### 2 4323-8 ####[facility] [id number] [place] [address] [place] Glucose [Mass/Vol] 101 mg/dL High 74-99 [facility] Comment on above: Order Comment: Raul hutson Type: BLOOD SPECIMENOrdering Facility: [facility] Address: [address] [place] [address] Result Comment: The [place] Diabetes Association (ADA) provides guidance for cutoff [...] Standards of Medical Care in Diabetes 2016, [place] Diabetes Association. Diabetes Care. 2016.39(Suppl 1). Performed By: #### 2 4323-8 ####[facility] [id number] [place] [address] [place] Potassium [Moles/Vol] 4.6 mmol/L Normal 3.7-5.1 [facility] Comment on above: Order Comment: Raul hutson Type: BLOOD SPECIMENOrdering Facility: [facility] Address: [address] [place] [address] Performed By: #### 2 4323-8 ####[facility] MILLWNCLIA [id number] [place] [address] [place] Protein [Mass/Vol] 6.3 g/dL Normal 6.3-8.0 [facility] Comment on above: Order Comment: Speci men Type: BLOOD SPECIMENOrdering Facility: [facility] Address: [address] [place] [address] Performed By: #### 2 4323-8 ####[facility]ITALNCLIA [id number] [place] [address] [place] Sodium [Moles/Vol] 140 mmol/L Normal 136-144 [facility] Comment on above: Order Comment: Speci men Type: BLOOD SPECIMENOrdering Facility: [facility] Address: [address] [place] [address] Performed By: #### 2 4323-8 ####[facility]ITALNCLIA [id number] [place] [address] [place] Urea nitrogen [Mass/Vol] 34 mg/dL High 9-24 [facility] Comment on above: Order Comment: Speci men Type: BLOOD SPECIMENOrdering Facility: [facility] Address: [address] [place] [address] Performed By: #### 2 4323-8 ####[facility] SPRINGSWNCLIA [id number] [place] [address] [place] Basic metabolic 2000 panelon 09-27-2024 Anion gap [Moles/Vol] 10 mmol/L Normal 8-15 [facility] Comment on above: Order Comment: Speci men Type: BLOOD SPECIMENOrdering Facility: [facility] Address: [address] [place] [address] Performed By: #### 2 4321-2 ####[facility]ITALNCLIA [id number] [place] [address] [place] Calcium [Mass/Vol] 9.1 mg/dL Normal 8.5-10.2 [facility] Comment on above: Order Comment: Speci men Type: BLOOD SPECIMENOrdering Facility: [facility] Address: [address] [place] [address] Performed By: #### 2 4321-2 ####[facility] MILLTOWNCLIA [id number] [place] [address] [place] Chloride [Moles/Vol] 106 mmol/L Normal 98-[address] [facility] Comment on above: Order Comment: Speci men Type: BLOOD SPECIMENOrdering Facility: [facility] Address: [address] [place] [address] Performed By: #### 2 4321-2 ####[facility] CENTERLIA [id number] [place] [address] [place] CO2 [Moles/Vol] 23 mmol/L Normal 22-30 [facility] Comment on above: Order Comment: Speci men Type: BLOOD SPECIMENOrdering Facility: [facility] Address: [address] [place] [address] Performed By: #### 2 4321-2 ####[facility] SPRINGSWNCLIA [id number] [place] [address] [place] Creatinine [Mass/Vol] 2.69 mg/dL High 0.73-1.22 [facility] Comment on above: Order Comment: Speci men Type: BLOOD SPECIMENOrdering Facility: [facility] Address: [address] [place] [address] Performed By: #### 2 4321-2 ####[facility]ITALNCLIA [id number] [place] [address] [place] eGFRcr SerPlBld CKD-EPI 2020 24 mL/min/1.73m??? Low >=60 [facility] Comment on above: Order Comment: Raul hutson Type: BLOOD SPECIMENOrdering Facility: [facility] Address: [address] [place] [address] Result Comment: Amy mated Glomerular Filtration Rate [...] actual GFR. Performed By: #### 2 4321-2 ####[facility] [id number] [place] [address] [place] Glucose [Mass/Vol] 94 mg/dL Normal 74-99 [facility] Comment on above: Order Comment: Raul hutson Type: BLOOD SPECIMENOrdering Facility: [facility] Address: [address] [place] [address] Result Comment: The [place] Diabetes Association (ADA) provides guidance for cutoff [...] Standards of Medical Care in Diabetes 2016, [place] Diabetes Association. Diabetes Care. 2016.39(Suppl 1). Performed By: #### 2 4321-2 ####[facility] [id number] [place] [address] [place] Potassium [Moles/Vol] 5.3 mmol/L High 3.7-5.1 [facility] Comment on above: Order Comment: Raul hutson Type: BLOOD SPECIMENOrdering Facility: [facility] Address: [address] [place], [place] [address] Performed By: #### 2 4321-2 ####[facility] ANGELICALINCOLNNCGREGORIOA [id number] [address] [place] Sodium [Moles/Vol] 139 mmol/L Normal 136-144 [facility] Comment on above: Order Comment: Speci men Type: BLOOD SPECIMENOrdering Facility: [facility] Address: [address] [place] [address] Performed By: #### 2 4321-2 ####[facility]ITALNCBE[facility] [id number] [place] [address] [place] Urea nitrogen [Mass/Vol] 41 mg/dL High 9-24 [facility] Comment on above: Order Comment: Speci men Type: BLOOD SPECIMENOrdering Facility: [facility] Address: [address] [place] [address] Performed By: #### 2 4321-2 ####[facility] [id number] [address] [facility] CNOVon 09-25-2024 CNOV Office Visit (RADTWS ) ABELARDO IVORY ([id number]) 1950 M Date Time Provider Department 09/25/24 10:15 AM LUIGI BANKS During your visit today, we recorded the following information about you: Temperature Pulse Blood pressure 97.5 degrees 56/minute 121/66 Shreya Souza, ANGELA 09/25/2024 10:39 AM Signed Radiation Therapy - Nursing Note (OTV) PATIENT NAME: Abelardo Ivory PATIENT September 25, 2024 [facility] FACILITY/LOCATION: [facility] NOTE TYPE: PROSTATE - MALE PELVIS Subjective Data I am still having that pain when I urinated and sometimes just hits gideon Additional Data Do you want to see a Conciliation Court Judge? No Status: Patient is male Stress Scale: On a scale of 0 to 10, what number best describes how much distress you have experienced in the past week?(0 being no distress and 10 being extreme distress) 2 Social work notified: Pt denied need to see social worker clinical at this time. Nursing Assessment Fatigue: increased [...] Allergies) Date Reviewed: 09/25/2024 Reviewed by: Shreya Souza RN - Fully Assessed Reason for Visit: [...] 5 mg by mouth once daily. - cnpkffaqkfo-vflwxqmxs-h ilanter (TRELEGY ELLIPTA) 200-62.5-25 mcg inhalation powder [...] Preop te (more content not included)... Normal [facility] CNPNon 09-25-2024 CNPN Telephone (VAIBHAV) ABELARDO IVORY ([id number]) 1950 M Date Time Provider Department 09/25/24 WOLF CRANE During your visit today, we recorded the following information about you: Wolf Crane RN 09/25/2024 11:07 AM Signed CYCLE 1/DAY [...] he understands and denies further needs/concerns. Nazanin Crane RN Allergies As of Date: 09/25/2024 (No Known Allergies) Date Reviewed: 09/25/2024 Reviewed by: Shreya Souza RN - Fully Assessed Reason for Visit: Care Coordination [6452] Cmt: CYCLE 1/DAY 1 POST TREATMENT CALL [...] 5 mg by mouth once daily. - ntebmsywcye-oxlwynbvv-t ilanter (TRELEGY ELLIPTA) 200-62.5-25 mcg inhalation powder [...] for u (more content not included)... Normal [facility] CBC W Auto Differential pane l (Bld)on 09-24-2024 Basophils (Bld) [#/Vol] 0.04 10*3/uL [facility] Basophils/100 WBC (Bld) 0.6 % [facility] Differential cell count method Nom (Bld) Auto [facility] Eosinophils (Bld) [#/Vol] 0.12 10*3/uL [facility] Eosinophils/100 WBC (Bld) 1.8 % [facility] Erythrocyte distribution width (RBC) [Ratio] 14.2 % 11.5 - 15.0 % [facility] Hematocrit (Bld) [Volume fraction] 35.6 % Low 39.0 - 51.0 % [facility] Hemoglobin (Bld) [Mass/Vol] 11.5 g/dL Low 13.0 - 17.0 g/dL [facility] Immature granulocytes (Bld) [#/Vol] [facility] Immature granulocytes/100 WBC (Bld) 0.2 % [facility] Interpretation and review of laboratory results Abnormal [facility] Lymphocytes (Bld) [#/Vol] 1.81 10*3/uL [facility] Lymphocytes/100 WBC (Bld) 27.8 % [facility] MCH (RBC) [Entitic mass] 30.7 pg 26.0 - 34.0 pg [facility] MCHC (RBC) [Mass/Vol] 32.3 g/dL 30.5 - 36.0 g/dL [facility] MCV (RBC) [Entitic vol] 94.9 fL 80.0 - 100.0 fL [facility] Monocytes (Bld) [#/Vol] 0.57 10*3/uL [facility] Monocytes/100 WBC (Bld) 8.8 % [facility] Neutrophils (Bld) [#/Vol] 3.95 10*3/uL [facility] Neutrophils/100 WBC (Bld) 60.8 % [facility] Nucleated RBC (Bld) [#/Vol] NINF [facility] Nucleated RBC/100 WBC (Bld) [Ratio] 0.0 % /100 WBC [facility] Platelet mean volume (Bld) [Entitic vol] 8.2 fL Low 9.0 - 12.7 fL [facility] Platelets (Bld) [#/Vol] 151 10*3/uL [facility] RBC (Bld) [#/Vol] 3.75 10*6/uL Low 4.20 - 6.0 0 m/uL [facility] WBC (Bld) [#/Vol] 6.50 10*3/uL [facility] Basophils (Bld) [#/Vol] 0.04 10*3/uL Normal <0.11 [facility] Comment on above: Order Comment: Speci men Type: BLOOD SPECIMENOrdering Facility: [facility] Address: [address] [place] [address] Performed By: #### 5 7021-8 ####[facility]A [id number] [place] [address] [place] Basophils/100 WBC (Bld) 0.6 % Normal [facility] Comment on above: Order Comment: Speci men Type: BLOOD SPECIMENOrdering Facility: [facility] Address: [address] [place] [address] Performed By: #### 5 7021-8 ####[facility]ENTERA [id number] [place] [address] [place] Differential cell count method Nom (Bld) Auto Normal [facility] Comment on above: Order Comment: Speci men Type: BLOOD SPECIMENOrdering Facility: [facility] Address: [address] [place] [address] Performed By: #### 5 7021-8 ####[facility] CENTERLIA [id number] [place] [address] [place] Eosinophils (Bld) [#/Vol] 0.12 10*3/uL Normal <0.46 [facility] Comment on above: Order Comment: Speci men Type: BLOOD SPECIMENOrdering Facility: [facility] Address: [address] [place] [address] Performed By: #### 5 7021-8 ####[facility] JOAQUINNCSATISH [id number] [place] [address] [place] Eosinophils/100 WBC (Bld) 1.8 % Normal [facility] Comment on above: Order Comment: Speci men Type: BLOOD SPECIMENOrdering Facility: [facility] Address: [address] [place] [address] Performed By: #### 5 7021-8 ####[facility] HOSPITALNCGREGORIOAristides [id number] [place] [address] [place] Erythrocyte distribution width (RBC) [Ratio] 14.2 % Normal 11.5-15.0 [facility] Comment on above: Order Comment: Speci men Type: BLOOD SPECIMENOrdering Facility: [facility] Address: [address] [place] [address] Performed By: #### 5 7021-8 ####[facility] HOSPITALNCLIA [id number] [place] [address] [place] Hematocrit (Bld) [Volume fraction] 35.6 % Low 39.0-51.0 [facility] Comment on above: Order Comment: Speci men Type: BLOOD SPECIMENOrdering Facility: [facility] Address: [address] [place] [address] Performed By: #### 5 7021-8 ####[facility] HOSPITALRICLIA [id number] [place] [address] [place] Hemoglobin (Bld) [Mass/Vol] 11.5 g/dL Low 13.0-17.0 [facility] Comment on above: Order Comment: Speci men Type: BLOOD SPECIMENOrdering Facility: [facility] Address: [address] [place] [address] Performed By: #### 5 7021-8 ####[facility] MILLWNCLIA [id number] [place] [address] [place] Immature granulocytes (Bld) [#/Vol] 10*3/uL Normal <0.10 [facility] Comment on above: Order Comment: Speci men Type: BLOOD SPECIMENOrdering Facility: [facility] Address: [address] [place] [address] Performed By: #### 5 7021-8 ####[facility] HOS[facility]ITALNCLIA [id number] [place] [address] [place] Immature granulocytes/100 WBC (Bld) 0.2 % Normal [facility] Comment on above: Order Comment: Speci men Type: BLOOD SPECIMENOrdering Facility: [facility] Address: [address] [place] [address] Performed By: #### 5 7021-8 ####[facility] CENTERLIA [id number] [place] [address] [place] Lymphocytes (Bld) [#/Vol] 1.81 10*3/uL Normal 1.00-4.00 [facility] Comment on above: Order Comment: Speci men Type: BLOOD SPECIMENOrdering Facility: [facility] Address: [address] [place] [address] Performed By: #### 5 7021-8 ####[facility] MILLWNCLIA [id number] [place] [address] [place] Lymphocytes/100 WBC (Bld) 27.8 % Normal [facility] Comment on above: Order Comment: Speci men Type: BLOOD SPECIMENOrdering Facility: [facility] Address: [address] [place] [address] Performed By: #### 5 7021-8 ####[facility] HOSPITALNCLIA [id number] [place] [address] [place] MCH (RBC) [Entitic mass] 30.7 pg Normal 26.0-34.0 [facility] Comment on above: Order Comment: Speci men Type: BLOOD SPECIMENOrdering Facility: [facility] Address: [address] [place] [address] Performed By: #### 5 7021-8 ####[facility] HOSPITALNCGREGORIOA [id number] [place] [address] [place] [place] MCHC (RBC) [Mass/Vol] 32.3 g/dL Normal 30.5-36.0 [facility] Comment on above: Order Comment: Speci men Type: BLOOD SPECIMENOrdering Facility: [facility] Address: [address] [place] [address] Performed By: #### 5 7021-8 ####[facility] [id number] [place] [address] [place] MCV (RBC) [Entitic vol] 94.9 fL Normal 80.0-100.0 [facility] Comment on above: Order Comment: Speci men Type: BLOOD SPECIMENOrdering Facility: [facility] Address: [address] [place] [address] Performed By: #### 5 7021-8 ####[facility]ITALNCLI [id number] [place] [address] [place] Monocytes (Bld) [#/Vol] 0.57 10*3/uL Normal <0.87 [facility] Comment on above: Order Comment: Speci men Type: BLOOD SPECIMENOrdering Facility: [facility] Address: [address] [place], [place] [address] Performed By: #### 5 7021-8 ####[facility]ITALNCLIA [id number] [place] [address] [place] Monocytes/100 WBC (Bld) 8.8 % Normal [facility] Comment on above: Order Comment: Speci men Type: BLOOD SPECIMENOrdering Facility: [facility] Address: [address] [place] [address] Performed By: #### 5 7021-8 ####[facility] ANGELICASHIRINLIA [id number] [place] [address] [place] Neutrophils (Bld) [#/Vol] 3.95 10*3/uL Normal 1.45-7.50 [facility] Comment on above: Order Comment: Speci men Type: BLOOD SPECIMENOrdering Facility: [facility] Address: [address] [place] [address] Performed By: #### 5 7021-8 ####[facility] CENTERLIA [id number] [place] [address] [place] Neutrophils/100 WBC (Bld) 60.8 % Normal [facility] Comment on above: Order Comment: Speci men Type: BLOOD SPECIMENOrdering Facility: [facility] Address: [address] [place] [address] Performed By: #### 5 7021-8 ####[facility] CENTERLIA [id number] [place] [address] [place] Nucleated RBC (Bld) [#/Vol] 10*3/uL Normal <0.01 [facility] Comment on above: Order Comment: Speci men Type: BLOOD SPECIMENOrdering Facility: [facility] Address: [address] [place] [address] Performed By: #### 5 7021-8 ####[facility] CENTERLIA [id number] [place] [address] [place] Nucleated RBC/100 WBC (Bld) [Ratio] 0.0 /100 WBC Normal [facility] Comment on above: Order Comment: Speci men Type: BLOOD SPECIMENOrdering Facility: [facility] Address: [address] [place] [address] Performed By: #### 5 7021-8 ####[facility]ITALNCLIA [id number] [place] [address] [place] Platelet mean volume (Bld) [Entitic vol] 8.2 fL Low 9.0-12.7 [facility] Comment on above: Order Comment: Speci men Type: BLOOD SPECIMENOrdering Facility: [facility] Address: [address] [place] [address] Performed By: #### 5 7021-8 ####[facility]ENTERLIA [id number] [place] [address] [place] Platelets (Bld) [#/Vol] 151 10*3/uL Normal 150-400 [facility] Comment on above: Order Comment: Speci men Type: BLOOD SPECIMENOrdering Facility: [facility] Address: [address] [place] [address] Performed By: #### 5 7021-8 ####[facility] [id number] [place] [address] [place] RBC (Bld) [#/Vol] 3.75 10*6/uL Low 4.20-6.00 [facility] Comment on above: Order Comment: Speci men Type: BLOOD SPECIMENOrdering Facility: [facility] Address: [address] [place] [address] Performed By: #### 5 7021-8 ####[facility]ENTERLIA [id number] [place] [address] [place] WBC (Bld) [#/Vol] 6.50 10*3/uL Normal 3.70-11.00 [facility] Comment on above: Order Comment: Speci men Type: BLOOD SPECIMENOrdering Facility: [facility] Address: [address] [place] [address] Performed By: #### 5 7021-8 ####[facility]ENTERLIA [id number] [place] [address] [facility] [place] Ale 09-24-2024 CNPN Telephone (HEMAWS) ABELARDO IVORY ([id number]) 1950 M Date Time Provider Department 09/24/24 LAKEISHA DAWKINS During your visit today, we recorded the following information about you: Shawna Prakash RN 09/24/2024 11:[address] Dawkins, Schedule him for BMP with possible hydration this coming . Pt will be in for radiation at 0900. Please schedule for port/picc draw and possible hydration. Thank you. Leonardo Downey 09/24/2024 11:57 AM Signed This has been scheduled. Leonardo Downey Allergies As of Date: 09/24/2024 (No Known Allergies) Date Reviewed: 09/24/2024 Reviewed by: Shawna Prakash RN - Fully Assessed Reason for Visit: Appointment [...] 5 mg by mouth once daily. - ktljbvodhpu-ujwsmmfhh-k ilanter (TRELEGY ELLIPTA) 200-62.5-25 mcg inhalation powder [...] bladder (HCC) [C6*09/05/2024 Encounter Status:Closed by LEONARDO DOWNEY on 09/24/24 Normal [facility] Comprehensive metabolic 2000 panelOrdered By: Rissa Browning on 09-24-2024 Albumin [Mass/Vol] 4.2 g/dL 3.9 - 4.9 g/dL [facility] ALP [Catalytic activity/Vol] 58 U/L 38 - 113 U/L [facility] ALT [Catalytic activity/Vol] 5 U/L Low 10 - 54 U/L [facility] Anion gap [Moles/Vol] 10 mmol/L 8 - 15 mmol/L [facility] AST [Catalytic activity/Vol] 10 U/L Low 14 - 40 U/L [facility] Bilirubin [Mass/Vol] 0.2 mg/dL 0.2 - 1 .3 mg/dL [facility] Calcium [Mass/Vol] 9.3 mg/dL 8.5 - 10. 2 mg/dL [facility] Chloride [Moles/Vol] 107 mmol/L 98 - 10 7 mmol/L [facility] CO2 [Moles/Vol] 23 mmol/L 22 - 30 mmol/L [facility] Creatinine [Mass/Vol] 2.14 mg/dL High 0.73 - 1.22 mg/dL [facility] GFR/1.73 sq M.predicted among non-blacks MDRD (S/P/Bld) [Vol rate/Area] 32 mL/min/{1.73_m2} Low - PINF [facility] Comment on above: Estimated Glomerular Filtration [...] 107 mg/dL High 74 - 99 mg/dL [facility] Comment on above: The [place] Diabete s Association (ADA) provides guidance for [...] Standards of Medical Care in Diabetes 2016, [place] Diabetes Association. Diabetes Care. 2016.39(Suppl 1). Interpretation and review of laboratory results Abnormal [facility] Potassium [Moles/Vol] 4.8 mmol/L 3.7 - 5.1 mmol/L [facility] Protein [Mass/Vol] 6.7 g/dL 6.3 - 8.0 g/dL [facility] Sodium [Moles/Vol] 140 mmol/L 136 - 144 mmol/L [facility] Urea nitrogen [Mass/Vol] 32 mg/dL High 9 - 24 mg/dL [facility] Comprehensive metabolic 2000 panelon 09-24-2024 Albumin [Mass/Vol] 4.2 g/dL Normal 3.9-4.9 [facility] Comment on above: Order Comment: Speci men Type: BLOOD SPECIMENOrdering Facility: [facility] Address: [address] [place] [address] Performed By: #### 2 4323-8 ####[facility] JENNIFER [facility] HOSPITALBRIAN [id number] [place] [address] [place] ALP [Catalytic activity/Vol] 58 U/L Normal 38-113 [facility] Comment on above: Order Comment: Speci men Type: BLOOD SPECIMENOrdering Facility: [facility] Address: [address] [place] [address] Performed By: #### 2 4323-8 ####[facility] ANGELICATOWNCLIA [id number] [place] [address] [place] ALT [Catalytic activity/Vol] 5 U/L Low 10-54 [facility] Comment on above: Order Comment: Speci men Type: BLOOD SPECIMENOrdering Facility: [facility] Address: [address] [place] [address] Performed By: #### 2 4323-8 ####[facility] MILLWNCLIA [id number] [place] [address] [place] Anion gap [Moles/Vol] 10 mmol/L Normal 8-15 [facility] Comment on above: Order Comment: Speci men Type: BLOOD SPECIMENOrdering Facility: [facility] Address: [address] [place] [address] Performed By: #### 2 4323-8 ####[facility] SPRINGSWNCLIA [id number] [place] [address] [place] AST [Catalytic activity/Vol] 10 U/L Low 14-40 [facility] Comment on above: Order Comment: Speci men Type: BLOOD SPECIMENOrdering Facility: [facility] Address: [address] [place] [address] Performed By: #### 2 4323-8 ####[facility] MILLTOWNCLIA [id number] [place] [address] [place] Bilirubin [Mass/Vol] 0.2 mg/dL Normal 0.2-1.[address] [facility] Comment on above: Order Comment: Speci men Type: BLOOD SPECIMENOrdering Facility: [facility] Address: [address] [place] [address] Performed By: #### 2 4323-8 ####[facility]ITALNCLIA [id number] [place] [address] [place] Calcium [Mass/Vol] 9.3 mg/dL Normal 8.5-10.2 [facility] Comment on above: Order Comment: Speci men Type: BLOOD SPECIMENOrdering Facility: [facility] Address: [address] [place] [address] Performed By: #### 2 4323-8 ####[facility] MILLTOWNCLIA [id number] [place] [address] [place] Chloride [Moles/Vol] 107 mmol/L Normal 98-[address] [facility] Comment on above: Order Comment: Speci men Type: BLOOD SPECIMENOrdering Facility: [facility] Address: [address] [place] [address] Performed By: #### 2 4323-8 ####[facility] CENTERLIA [id number] [place] [address] [place] CO2 [Moles/Vol] 23 mmol/L Normal 22-30 [facility] Comment on above: Order Comment: Speci men Type: BLOOD SPECIMENOrdering Facility: [facility] Address: [address] [place] [address] Performed By: #### 2 4323-8 ####[facility] MILLWNCLIA [id number] [place] [address] [place] Creatinine [Mass/Vol] 2.14 mg/dL High 0.73-1.22 [facility] Comment on above: Order Comment: Speci men Type: BLOOD SPECIMENOrdering Facility: [facility] Address: [address] [place] [address] Performed By: #### 2 4323-8 ####[facility] SPRINGSWNCLIA [id number] [place] [address] [place] eGFRcr SerPlBld CKD-EPI 2020 32 mL/min/1.73m??? Low >=60 [facility] Comment on above: Order Comment: Raul hutson Type: BLOOD SPECIMENOrdering Facility: [facility] Address: [address] [place] [address] Result Comment: Amy mated Glomerular Filtration Rate [...] actual GFR. Performed By: #### 2 4323-8 ####[facility] [id number] [place] [address] [place] Glucose [Mass/Vol] 107 mg/dL High 74-99 [facility] Comment on above: Order Comment: Raul hutson Type: BLOOD SPECIMENOrdering Facility: [facility] Address: [address] [place] [address] Result Comment: The [place] Diabetes Association (ADA) provides guidance for cutoff [...] Standards of Medical Care in Diabetes 2016, [place] Diabetes Association. Diabetes Care. 2016.39(Suppl 1). Performed By: #### 2 4323-8 ####[facility] [id number] [place] [address] [place] Potassium [Moles/Vol] 4.8 mmol/L Normal 3.7-5.1 [facility] Comment on above: Order Comment: Raul hutson Type: BLOOD SPECIMENOrdering Facility: [facility] Address: [address] [place] [address] Performed By: #### 2 4323-8 ####[facility] ANGELICAWNCLIA [id number] [place] [address] [place] Protein [Mass/Vol] 6.7 g/dL Normal 6.3-8.0 [facility] Comment on above: Order Comment: Speci men Type: BLOOD SPECIMENOrdering Facility: [facility] Address: [address] [place] [address] Performed By: #### 2 4323-8 ####[facility]ITALNCLIA [id number] [place] [address] [place] Sodium [Moles/Vol] 140 mmol/L Normal 136-144 [facility] Comment on above: Order Comment: Speci men Type: BLOOD SPECIMENOrdering Facility: [facility] Address: [address] [place] [address] Performed By: #### 2 4323-8 ####[facility]ITALNCLIA [id number] [place] [address] [place] Urea nitrogen [Mass/Vol] 32 mg/dL High 9-24 [facility] Comment on above: Order Comment: Speci men Type: BLOOD SPECIMENOrdering Facility: [facility] Address: [address] [place] [address] Performed By: #### 2 4323-8 ####[facility]PITALTOWNCLIA [id number] [place] [address] [place] ABD/PEL WO IVCONon 2024 CT ABD/PEL WO IVCON * * *Final Report* * * DATE OF EXAM: Sep 18 2024 9:19AM [facility] 0531 - CT ABD/PEL WO IVCON / [...] and hydroureter. Small retroperitoneal nodes are stable. Skiver Heel Tap: JESUS ALBERTO Transcribe Date/Time: Sep 19 2024 9:51A Dictated by : DEANNA RAMIREZ MD This examination was interpreted and the report reviewed and electronically signed by: DEANNA RAMIREZ MD on Sep 19 2024 10:05AM EST [id number] Normal [facility] CNPNon 09-12-2024 CNPN Telephone (HEMAWS) ABELARDO IVORY ([id number]) 1950 M Date Time Provider Department 09/12/24 MATTHEW GU During your visit today, we recorded the following information about you: Matthew Gu RN 09/12/2024 11:11 AM Signed Completed chemo education. No antimeric on file, pended [place] World[place]. C/o pain. Pain assessment completed. Patient is [...] Signed Called patient, no answer, left a VM requesting a call back. ANGELA Chen Amber, RN 09/12/2024 2:39 PM Signed Patient informed of Dr. Dawkins's response and he stated understanding. Matthew Gu RN Allergies As of Date: 09/12/2024 (No Known Allergies) Date Reviewed: 09/06/2024 Reviewed by: Unruly Diaz RN - Fully Assessed Reason for Visit: Hands Hanger - Other [3602] Cmt: Pain Primary Visit [...] 5 mg by mouth once daily. - uldbplxplbs-chyicibay-q ilanter (TRELEGY ELLIPTA) 200-62.5-25 mcg inhalation powder [...] 02/14/2019 Thrombocytopenia (more content not included)... Normal [facility] Telephone (HEMAWS) ABELARDO IVORY ([id number]) 1950 M Date Time Provider Department 09/12/24 ANTONI POLK During your visit today, we recorded the following information about you: Antoni Polk LISW 09/12/2024 2:15 PM Signed PSYCHOSOCIAL SCREENING ASSESSMENT Date of Service: September 12, 2024 Abelardo Ivory is a 74 year old male being seen for initial social work assessment. Diagnosis: Malignant neoplasm of urinary bladder, unspecified site New Primary Oncologist: Lakeisha Dawkins DO Radiation Oncologist: Luigi Banks MD Goals of Care: Palliative care Today's visit includes: self/patient Family History of Cancer: Brother and Father (unable to recall types) SUPPORT NETWORK: Social Connections: Not on file Marital status: Parent(s): Mother is and Father is Child/Children: Yes. How many? 5 life care planner arrangements needed: No Siblings: 2 sisters and 1 brother Grandchild(kathleen): a bunch Home Health Provider: No Community Services: No Zeenat Identified: No Anabaptist/Spirituality: Unknown Are these practices or beliefs that may affect or influence treatment? Unknown EMPLOYMENT/FINANCIAL/HE ALTH INSURANCE: Employment: Retired Income source: Social Security and [employer] Pension Insurance: Medicare with co-insurance Prescription coverage: Yes Is the patient appropriate for referral to [facility] Assistance program? No Financial Distress: No [place]: No FOOD INSECURITY Within the past year, [...] DIRECTIVES/LEGAL DOCUMENTS: Living Will: Yes Scanned into [employer]: Yes, 2019 Health Care Durable Power of Safety Coordinator: Yes Scanned into EPIC: No, pt reports he will get a copy of this document from [facility] at his upcoming appointment Guardianship: No [...] and h (more content not included)... 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 Patient has an Onbody or Implanted device: [...] 5 mg by mouth once daily. - toxcxqajndq-ttbtwjzxn-e ilanter (TRELEGY ELLIPTA) 200-62.5-25 mcg inhalation powder [...] Status:Closed by UNRULY DIAZ on 09/07/24 Normal [facility] US KIDNEY/BLADDERon 09-08-19 US KIDNEY/BLADDER * * *Final Report* * * DATE OF EXAM: Sep 07 2024 12:20PM [facility] 1055 - US KIDNEY/BLADDER / PROCEDURE REASON: [...] irregular wall thickening secondary to known neoplasm. Skiver Heel Tap: JESUS ALBERTO Transcribe Date/Time: Sep 07 2024 12:38P Dictated by : HAYLEE STARKEY DO This examination was interpreted and the report reviewed and electronically signed by: HAYLEE STARKEY DO on Sep 07 2024 12:42PM EST [id number] Normal [facility] US Kidney - bilateral and Ur inary bladderon 09-07-2024 Radiology Study observation (narrative) [facility] IMPRESSION: Mild RIGHT and moderate LEFT hydronephrosis. 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 Skiver Heel Tap: JESUS ALBERTO Transcribe Date/Time: Sep 07 2024 12:38P Dictated by : HAYLEE STARKEY DO This examination was interpreted and the report reviewed and electronically signed by: HAYLEE STARKEY DO on Sep 07 2024 12:42PM EST DIVISION OF RADIOLOGY * * *Final Report* * * DATE OF EXAM: Sep 07 2024 12:20PM [facility] 1055 - US KIDNEY/BLADDER / PROCEDURE REASON: [...] to known neoplasm. DIVISION OF RADIOLOGY Provider, [facility] - 09/07/2024 * * *Final Report* * * DATE OF EXAM: Sep 07 2024 12:20PM [facility] 1055 - KIDNEY/BLADDER / PROCEDURE REASON: multiple diagnoses * [...] irregular wall thickening secondary to known neoplasm. Skiver Heel Tap: JESUS ALBERTO Transcribe Date/Time: Sep 07 2024 12:38P Dictated by : HAYLEE STARKEY DO This examination was interpreted and the report reviewed and electronically signed by: HAYLEE STARKEY DO on Sep 07 2024 12:42PM [facility] US Kidney - bilateral and Ur inary bladderOrdered By: Ccf Provider on 09-07-2024 [facility] CNOVon 09-06-2024 CNOV Office Visit (RADTWS ) ABELARDO IVORY ([id number]) 1950 Date Time Provider Department 09/06/24 10:30 AM LUIGI BANKS During your visit today, we recorded the following information about you: Temperature Pulse Respiration Blood pressure 97.7 degrees 74/minute 15/minute 136/63 Weight 69.2 kg Unruly Diaz RN 09/14/2024 11:12 AM Signed Radiation Therapy - Nursing Note (Consult) PATIENT NAME: Abelardo Ivory PATIENT September 06, 2024 [facility] FACILITY/LOCATION: [place] Chief Complaint: consult Reason for visit: Consult. Referring physician: Internal provider Dr Dawkins Subjective Data: see pain assessment Additional Data Do you want to see a Conciliation Court Judge? No Are you interested in information about [...] Abelardo Ivory PATIENT REQUESTING PROVIDER: Dr. Lakeisha Dawkins DIAGNOSIS: Clinical stage II, cT2 cN0, high [...] Take 5 mg by mouth once daily. omlmektjffz-prtywkikt-c ilanter (TRELEGY ELLIPTA) 200-62.5-25 mcg inhalation powder [...] Asthma S (more content not included)... Normal [facility] 09-06-2024 [facility] Telephone (UROLAE) ABELARDO IVORY ([id number]) 1950 M Date Time Provider Department 09/06/24 STACY GAUTHIER During your visit today, we recorded the following information about you: Stacy Gauthier MD 09/06/2024 7:[address] Dawkins ordered a left perc tube placement- can you find out where he's having it done, want to add on left antegrade stent placement at same time- MD Avni Johnson Margaret 09/06/2024 9:12 AM Signed Spoke with Dr. Dawkins office and they stated for you to send message to dr. Dawkins and have him add it on to [...] 5 mg by mouth once daily. - mdgbcdnhmyp-wjakewbpz-d ilanter (TRELEGY ELLIPTA) 200-62.5-25 mcg inhalation powder [...] Status:Closed by STACY GAUTHIER on 09/06/[address] [facility] CBC W Auto Differential pane l (Bld)on 09-05-2024 Basophils (Bld) [#/Vol] 0.05 10*3/uL [facility] Basophils/100 WBC (Bld) 0.7 % [facility] Differential cell count method Nom (Bld) Auto [facility] Eosinophils (Bld) [#/Vol] 0.23 10*3/uL [facility] Eosinophils/100 WBC (Bld) 3.1 % [facility] Erythrocyte distribution width (RBC) [Ratio] 13.4 % 11.5 - 15.0 % [facility] Hematocrit (Bld) [Volume fraction] 40 % 39.0 - 51.0 % [facility] Hemoglobin (Bld) [Mass/Vol] 12.7 g/dL Low 13.0 - 17.0 g/dL [facility] Immature granulocytes (Bld) [#/Vol] [facility] Immature granulocytes/100 WBC (Bld) 0.3 % [facility] Interpretation and review of laboratory results Abnormal [facility] Lymphocytes (Bld) [#/Vol] 2.43 10*3/uL [facility] Lymphocytes/100 WBC (Bld) 32.7 % [facility] MCH (RBC) [Entitic mass] 29.9 pg 26.0 - 34.0 pg [facility] MCHC (RBC) [Mass/Vol] 31.8 g/dL 30.5 - 36.0 g/dL [facility] MCV (RBC) [Entitic vol] 94.1 fL 80.0 - 100.0 fL [facility] Monocytes (Bld) [#/Vol] 0.56 10*3/uL [facility] Monocytes/100 WBC (Bld) 7.5 % [facility] Neutrophils (Bld) [#/Vol] 4.15 10*3/uL [facility] Neutrophils/100 WBC (Bld) 55.7 % [facility] Nucleated RBC (Bld) [#/Vol] NINF [facility] Nucleated RBC/100 WBC (Bld) [Ratio] 0 % /100 WBC [facility] Platelet mean volume (Bld) [Entitic vol] 8.3 fL Low 9.0 - 12.7 fL [facility] Platelets (Bld) [#/Vol] 207 10*3/uL [facility] RBC (Bld) [#/Vol] 4.25 10*6/uL 4.20 - 6.0 0 m/uL [facility] WBC (Bld) [#/Vol] 7.44 10*3/uL [facility] Basophils (Bld) [#/Vol] 0.05 10*3/uL Normal <0.11 [facility] Comment on above: Order Comment: Speci men Type: BLOOD SPECIMENOrdering Facility: [facility] Address: [address] [place] [address] Performed By: #### 5 7021-8 ####[facility] [id number] [place] [address] [place] Basophils/100 WBC (Bld) 0.7 % Normal [facility] Comment on above: Order Comment: Speci men Type: BLOOD SPECIMENOrdering Facility: [facility] Address: [address] [place] [address] Performed By: #### 5 7021-8 ####[facility] [id number] [place] [address] [place] Differential cell count method Nom (Bld) Auto Normal [facility] Comment on above: Order Comment: Speci men Type: BLOOD SPECIMENOrdering Facility: [facility] Address: [address] [place] [address] Performed By: #### 5 7021-8 ####[facility] [id number] [place] [address] [place] Eosinophils (Bld) [#/Vol] 0.23 10*3/uL Normal <0.46 [facility] Comment on above: Order Comment: Speci men Type: BLOOD SPECIMENOrdering Facility: [facility] Address: [address] [place] [address] Performed By: #### 5 7021-8 ####[facility] SPRINGSWILLIA [id number] [place] [address] [place] Eosinophils/100 WBC (Bld) 3.1 % Normal [facility] Comment on above: Order Comment: Speci men Type: BLOOD SPECIMENOrdering Facility: [facility] Address: [address] [place] [address] Performed By: #### 5 7021-8 ####[facility] [id number] [place] [address] [place] Erythrocyte distribution width (RBC) [Ratio] 13.4 % Normal 11.5-15.0 [facility] Comment on above: Order Comment: Speci men Type: BLOOD SPECIMENOrdering Facility: [facility] Address: [address] [place] [address] Performed By: #### 5 7021-8 ####[facility] [id number] [place] [address] [place] Hematocrit (Bld) [Volume fraction] 40.0 % Normal 39.0-51.0 [facility] Comment on above: Order Comment: Speci men Type: BLOOD SPECIMENOrdering Facility: [facility] Address: [address] [place] [address] Performed By: #### 5 7021-8 ####[facility] [id number] [place] [address] [place] Hemoglobin (Bld) [Mass/Vol] 12.7 g/dL Low 13.0-17.0 [facility] Comment on above: Order Comment: Speci men Type: BLOOD SPECIMENOrdering Facility: [facility] Address: [address] [place] [address] Performed By: #### 5 7021-8 ####[facility] ANGELICAWRICLIA [id number] [place] [address] [place] Immature granulocytes (Bld) [#/Vol] 10*3/uL Normal <0.10 [facility] Comment on above: Order Comment: Speci men Type: BLOOD SPECIMENOrdering Facility: [facility] Address: [address] [place] [address] Performed By: #### 5 7021-8 ####[facility]ENTERLIA [id number] [place] [address] [place] Immature granulocytes/100 WBC (Bld) 0.3 % Normal [facility] Comment on above: Order Comment: Speci men Type: BLOOD SPECIMENOrdering Facility: [facility] Address: [address] [place] [address] Performed By: #### 5 7021-8 ####[facility] CENTERLIA [id number] [place] [address] [place] Lymphocytes (Bld) [#/Vol] 2.43 10*3/uL Normal 1.00-4.00 [facility] Comment on above: Order Comment: Speci men Type: BLOOD SPECIMENOrdering Facility: [facility] Address: [address] [place] [address] Performed By: #### 5 7021-8 ####[facility]ENTERLIA [id number] [place] [address] [place] Lymphocytes/100 WBC (Bld) 32.7 % Normal [facility] Comment on above: Order Comment: Speci men Type: BLOOD SPECIMENOrdering Facility: [facility] Address: [address] [place] [address] Performed By: #### 5 7021-8 ####[facility] HOSPITALNCSATISH [id number] [place] [address] [place] MCH (RBC) [Entitic mass] 29.9 pg Normal 26.0-34.0 [facility] Comment on above: Order Comment: Speci men Type: BLOOD SPECIMENOrdering Facility: [facility] Address: [address] [place] [address] Performed By: #### 5 7021-8 ####[facility] HOSPITALBRIAN [id number] [place] [address] [place] MCHC (RBC) [Mass/Vol] 31.8 g/dL Normal 30.5-36.0 [facility] Comment on above: Order Comment: Speci men Type: BLOOD SPECIMENOrdering Facility: [facility] Address: [address] [place] [address] Performed By: #### 5 7021-8 ####[facility] [id number] [place] [address] [place] MCV (RBC) [Entitic vol] 94.1 fL Normal 80.0-100.0 [facility] Comment on above: Order Comment: Speci men Type: BLOOD SPECIMENOrdering Facility: [facility] Address: [address] [place] [address] Performed By: #### 5 7021-8 ####[facility] HOSPITALNCLI [id number] [place] [address] [place] Monocytes (Bld) [#/Vol] 0.56 10*3/uL Normal <0.87 [facility] Comment on above: Order Comment: Speci men Type: BLOOD SPECIMENOrdering Facility: [facility] Address: [address] [place] [address] Performed By: #### 5 7021-8 ####[facility] H[facility]ITALNCLIA [id number] [place] [address] [place] Monocytes/100 WBC (Bld) 7.5 % Normal [facility] Comment on above: Order Comment: Speci men Type: BLOOD SPECIMENOrdering Facility: [facility] Address: [address] [place] [address] Performed By: #### 5 7021-8 ####[facility]ITALNCBEAR [facility] [id number] [place] [address] [place] Neutrophils (Bld) [#/Vol] 4.15 10*3/uL Normal 1.45-7.50 [facility] Comment on above: Order Comment: Speci men Type: BLOOD SPECIMENOrdering Facility: [facility] Address: [address] [place] [address] Performed By: #### 5 7021-8 ####[facility] [id number] [place] [address] [place] Neutrophils/100 WBC (Bld) 55.7 % Normal [facility] Comment on above: Order Comment: Speci men Type: BLOOD SPECIMENOrdering Facility: [facility] Address: [address] [place] [address] Performed By: #### 5 7021-8 ####[facility] [id number] [place] [address] [place] Nucleated RBC (Bld) [#/Vol] 10*3/uL Normal <0.01 [facility] Comment on above: Order Comment: Speci men Type: BLOOD SPECIMENOrdering Facility: [facility] Address: [address] [place] [address] Performed By: #### 5 7021-8 ####[facility] [id number] [place] [address] [place] Nucleated RBC/100 WBC (Bld) [Ratio] 0.0 /100 WBC Normal [facility] Comment on above: Order Comment: Speci men Type: BLOOD SPECIMENOrdering Facility: [facility] Address: [address] [place] [address] Performed By: #### 5 7021-8 ####[facility] ABELARDO [id number] [place] [address] [place] Platelet mean volume (Bld) [Entitic vol] 8.3 fL Low 9.0-12.7 [facility] Comment on above: Order Comment: Speci men Type: BLOOD SPECIMENOrdering Facility: [facility] Address: [address] [place] [address] Performed By: #### 5 7021-8 ####[facility] ANGELICALINCOLNBRIAN [id number] [place] [address] [place] Platelets (Bld) [#/Vol] 207 10*3/uL Normal 150-400 [facility] Comment on above: Order Comment: Speci men Type: BLOOD SPECIMENOrdering Facility: [facility] Address: [address] [place] [address] Performed By: #### 5 7021-8 ####[facility] HOSPITALHOLLYA [id number] [place] [address] [place] RBC (Bld) [#/Vol] 4.25 10*6/uL Normal 4.20-6.00 [facility] Comment on above: Order Comment: Speci men Type: BLOOD SPECIMENOrdering Facility: [facility] Address: [address] [place] [address] Performed By: #### 5 7021-8 ####[facility]ITALNCLIA [id number] [place] [address] [place] WBC (Bld) [#/Vol] 7.44 10*3/uL Normal 3.70-11.00 [facility] Comment on above: Order Comment: Speci men Type: BLOOD SPECIMENOrdering Facility: [facility] Address: [address] [place] [address] Performed By: #### 5 7021-8 ####[facility] JENNIFER ZHOU [id number] [place] [address] [place] CNOVSPon 09-05-2024 CNOVSP Visit (SP) Office (VAIBHAV) ABELARDO IOVRY ([id number]) 1950 M Date Time Provider Department 09/05/24 2:00 PM LAKEISHA DAWKINS During your visit today, we recorded the following information about you: Temperature Pulse Blood pressure Weight 97.7 degrees 75/minute 145/69 69.2 kg Height 1.69 m Lakeisha Dawkins DO 09/05/2024 5:01 PM Signed Patient self-referred for muscle invasive bladder cancer. HPI: The patient is a 74-year-old male with a past medical history as outlined below. Developed gross hematuria and noticed debris in urine. Saw Dr. Winston. Had TURBT with chemo flush. Path below. Referred to [facility] b/c patient declined cystectomy. Per Dr. [...] ppd since age 15 years Pathology from [facility] reviewed at [facility]: A. Urinary bladder, transurethral resection: - [...] cough. Clear sputum. Sees Dr. Zuñiga at [facility]. Smokes about 1/2 ppd. No alcohol. [...] Take 5 mg by mouth once daily. fwgepzauost-wpyiaafbd-a ilanter (TRELEGY ELLIPTA) 200-62.5-25 mcg inhalation powder [...] (Patient not (more content not included)... Normal [facility] 09-05-2024 VICTORIANO Telephone (VAIBHAV) ABELARDO IVORY ([id number]) 1950 M Date Time Provider Department 09/05/24 [...] MA - Fully Assessed Reason for Visit: Hands Hanger - Other [3602] Cmt: Introduction Prescriptions as of 09/05/2024 - phenazopyridine (PYRIDIUM) 100 mg tablet Take 100 mg by mouth three times a day. - cholecalciferol, vitamin D3, (VITAMIN D-3) 10 mcg (400 unit) cap Take 400 Units by mouth once daily. - amLODIPine (NORVASC) 5 mg tablet Take 5 mg by mouth once daily. - qerkzpmgffh-cdgyvypvs-a ilanter (TRELEGY ELLIPTA) 200-62.5-25 mcg inhalation powder [...] Encounter Status:Closed by MATTHEW [facility] IV[facility] ([id number]) 1950 M Date Time Provider Department 09/05/24 LAKEISHA DAWKINS During your visit today, we recorded the following information about you: Leonardo Downey 09/05/2024 3:30 PM Signed AVS 09/05 [...] with me in about 8 weeks. Lakeisha Dawkins, 09/05/2024 5:32 PM Signed Lab results from today show significant elevation of serum creatinine and BUN. Ultrasound stat. Also scheduled for potential nephrostomy tube placement at [place] or [place]. Chelsea Gutierres 09/06/2024 10:09 AM Addendum Scheduled US for 09/07 PICC LINE 09/10 @ 10 [place] Stacy Collado MD 09/06/2024 9:51 AM Signed Absolutely- will add antegrade stent to procedure if IR is able MD Lizzette Rosales Melissa 09/06/2024 12:15 PM Signed Received call from [facility] stating they are unable to insert picc with order placed. She states they need a Tunneled Picc ordered and [facility] IR would schedule that procedure. Elizabeth Ludwig [...] 4:30 PM Signed Schedule updated and completed RakeshMegha Gonzales 09/10/2024 10:20 AM Signed Will need PICC line and may leave in for 1 month for treatment. Elizabeth Ludwig LPN 09/10/2024 10:49 AM Signed PICC orders faxed to [facility] IR; needs placed on 09/21/2024. SUDHA RachelMegha 09/10/2024 10:55 AM Signed chemo moved to 09/24 Allergies As of Date: 09/05/2024 (No Known Allergies) Date Reviewed: 09/05/2024 Reviewed by: Paramjit Lugo MA - Fully Assessed Reason for Visit: Results [95] Primary Visit Diagnosis:Malignant neoplasm of overlapping sites of bladder (HCC) [C67.8] Other Visit Diagnoses:ROSALIE (acute kidney injury) [N17.9] Hydroureter on left [N13.4] Order(s): KIDNEY/BLADDER [[id number]] Order #: [id number] [facility] [address] [[id number]] Order #: [id number] Prescriptions as of 09/10/2024 - phenazopyridine (PYRIDIUM) 100 mg tablet Take 100 mg by mouth three times a day. - cholecalciferol, vitamin D3, (VITAMIN D-3) 10 mcg (400 unit) cap Take 400 Units by mouth once daily. - amLODIPine (NORVASC) 5 mg tablet Take 5 mg by mouth once daily. - iyvqaalkakr-veuyassth-g ilanter (TRELEGY ELLIPTA) 200-62.5-25 mcg inhalation powder [...] testing [Z (more content not included)... Normal [facility] metabolic 2000 panelOrdered By: Jessie Stewart on 09-05-2024 Albumin [Mass/Vol] 4.4 g/dL 3.9 - 4.9 g/dL [facility] ALP [Catalytic activity/Vol] 75 U/L 38 - 113 U/L [facility] ALT [Catalytic activity/Vol] 8 U/L Low 10 - 54 U/L [facility] Anion gap [Moles/Vol] 15 mmol/L 8 - 15 mmol/L [facility] AST [Catalytic activity/Vol] 14 U/L 14 - 40 U/L [facility] Bilirubin [Mass/Vol] 0.3 mg/dL 0.2 - 1 .3 mg/dL [facility] Calcium [Mass/Vol] 9.1 mg/dL 8.5 - 10. 2 mg/dL [facility] Chloride [Moles/Vol] 103 mmol/L 98 - 10 7 mmol/L [facility] CO2 [Moles/Vol] 18 mmol/L Low 22 - 30 mmol/L [facility] Creatinine [Mass/Vol] 2.23 mg/dL High 0.73 - 1.22 mg/dL [facility] GFR/1.73 sq M.predicted among non-blacks MDRD (S/P/Bld) [Vol rate/Area] 30 mL/min/{1.73_m2} Low - PINF [facility] Comment on above: Estimated Glomerular Filtration [...] 104 mg/dL High 74 - 99 mg/dL [facility] Comment on above: The [place] Diabete s Association (ADA) provides guidance for [...] Standards of Medical Care in Diabetes 2016, [place] Diabetes Association. Diabetes Care. 2016.39(Suppl 1). Interpretation and review of laboratory results Abnormal [facility] Potassium [Moles/Vol] 5.3 mmol/L High 3.7 - 5.1 mmol/L [facility] Protein [Mass/Vol] 7.4 g/dL 6.3 - 8.0 g/dL [facility] Sodium [Moles/Vol] 136 mmol/L 136 - 144 mmol/L [facility] Urea nitrogen [Mass/Vol] 35 mg/dL High 9 - 24 mg/dL [facility] Comprehensive metabolic 2000 panelon 09-05-2024 Albumin [Mass/Vol] 4.4 g/dL Normal 3.9-4.9 [facility] Comment on above: Order Comment: Speci men Type: BLOOD SPECIMENOrdering Facility: [facility] Address: [facility] [place] [address] Performed By: #### 2 4323-8 ####[facility] JENNIFER [facility] HOSPITALAristides [id number] [place] [address] [place] ALP [Catalytic activity/Vol] 75 U/L Normal 38-113 [facility] Comment on above: Order Comment: Speci men Type: BLOOD SPECIMENOrdering Facility: [facility] Address: [address] [place] [address] Performed By: #### 2 4323-8 ####[facility] ANGELICAWNCLIA [id number] [place] [address] [place] ALT [Catalytic activity/Vol] 8 U/L Low 10-54 [facility] Comment on above: Order Comment: Speci men Type: BLOOD SPECIMENOrdering Facility: [facility] Address: [address] [place] [address] Performed By: #### 2 4323-8 ####[facility]ITALNCLIA [id number] [place] [address] [place] Anion gap [Moles/Vol] 15 mmol/L Normal 8-15 [facility] Comment on above: Order Comment: Speci men Type: BLOOD SPECIMENOrdering Facility: [facility] Address: [address] [place] [address] Performed By: #### 2 4323-8 ####[facility] H[facility]ITALNCLIA [id number] [place] [address] [place] AST [Catalytic activity/Vol] 14 U/L Normal 14-40 [facility] Comment on above: Order Comment: Speci men Type: BLOOD SPECIMENOrdering Facility: [facility] Address: [address] [place] [address] Performed By: #### 2 4323-8 ####[facility]ITALNCLIA [id number] [place] [address] [place] Bilirubin [Mass/Vol] 0.3 mg/dL Normal 0.2-1.[address] [facility] Comment on above: Order Comment: Speci men Type: BLOOD SPECIMENOrdering Facility: [facility] Address: [address] [place] [address] Performed By: #### 2 4323-8 ####[facility] MILLTOWNCLIA [id number] [place] [address] [place] Calcium [Mass/Vol] 9.1 mg/dL Normal 8.5-10.2 [facility] Comment on above: Order Comment: Speci men Type: BLOOD SPECIMENOrdering Facility: [facility] Address: [address] [place] [address] Performed By: #### 2 4323-8 ####[facility] MILLTOWNCLIA [id number] [place] [address] [place] Chloride [Moles/Vol] 103 mmol/L Normal 98-[address] [facility] Comment on above: Order Comment: Speci men Type: BLOOD SPECIMENOrdering Facility: [facility] Address: [address] [place] [address] Performed By: #### 2 4323-8 ####[facility] CENTERLIA [id number] [place] [address] [place] CO2 [Moles/Vol] 18 mmol/L Low 22-30 [facility] Comment on above: Order Comment: Speci men Type: BLOOD SPECIMENOrdering Facility: [facility] Address: [address] [place] [address] Performed By: #### 2 4323-8 ####[facility] SPRINGSWNCLIA [id number] [place] [address] [place] Creatinine [Mass/Vol] 2.23 mg/dL High 0.73-1.22 [facility] Comment on above: Order Comment: Speci men Type: BLOOD SPECIMENOrdering Facility: [facility] Address: [address] [place] [address] Performed By: #### 2 4323-8 ####[facility] H[facility]ITALNCLIA [id number] [place] [address] [place] eGFRcr SerPlBld CKD-EPI 2020 30 mL/min/1.73m??? Low >=60 [facility] Comment on above: Order Comment: Raul hutson Type: BLOOD SPECIMENOrdering Facility: [facility] Address: [address] [place] [address] Result Comment: Amy mated Glomerular Filtration Rate [...] actual GFR. Performed By: #### 2 4323-8 ####[facility] [id number] [place] [address] [place] Glucose [Mass/Vol] 104 mg/dL High 74-99 [facility] Comment on above: Order Comment: Raul hutson Type: BLOOD SPECIMENOrdering Facility: [facility] Address: [address] [place] [address] Result Comment: The [place] Diabetes Association (ADA) provides guidance for cutoff [...] Standards of Medical Care in Diabetes 2016, [place] Diabetes Association. Diabetes Care. 2016.39(Suppl 1). Performed By: #### 2 4323-8 ####[facility] CENTERGREGORIO [id number] [place] [address] [place] Potassium [Moles/Vol] 5.3 mmol/L High 3.7-5.1 [facility] Comment on above: Order Comment: Speci men Type: BLOOD SPECIMENOrdering Facility: [facility] Address: [address] [place] [address] Performed By: #### 2 4323-8 ####[facility] ANGELICAWNCLIA [id number] [place] [address] [place] Protein [Mass/Vol] 7.4 g/dL Normal 6.3-8.0 [facility] Comment on above: Order Comment: Speci men Type: BLOOD SPECIMENOrdering Facility: [facility] Address: [address] [place] [address] Performed By: #### 2 4323-8 ####[facility]ITALNCLIA [id number] [place] [address] [place] Sodium [Moles/Vol] 136 mmol/L Normal 136-144 [facility] Comment on above: Order Comment: Speci men Type: BLOOD SPECIMENOrdering Facility: [facility] Address: [address] [place] [address] Performed By: #### 2 4323-8 ####[facility]ITALNCLIA [id number] [place] [address] [place] Urea nitrogen [Mass/Vol] 35 mg/dL High 9-24 [facility] Comment on above: Order Comment: Speci men Type: BLOOD SPECIMENOrdering Facility: [facility] Address: [address] [place] [address] Performed By: #### 2 4323-8 ####[facility]ITALNCLIA [id number] [place] [address] [place] DPYD/UGT1A1 GENOTYPING PANEL on 09-05-2024 DPYD/UGT1A1 GENOTYPING PANEL RESULT Normal [facility] Comment on above: Order Comment: Speci men Type: BLOOD SPECIMENOrdering Facility: [facility] Address: [address] [place] [address] Result Comment: Phar [employer] (PGx) DPYD and UGT1A1 Genotyping Laboratory Accession Number: [id number] DPYD Genotype: *1/*1 DPYD Activity Score: 2 [...] molecular testing details should be directed to [facility] [email or web address]. One decreased function UGT1A1 allele, in combination [...] Variant Details: NA UGT1A1 Variant Details: UGT1A1 [id number], c.-346C>T, g.[id number]>T (legacy name 80); UGT1A1 [id number], c.-41_-40dupTA g.[id number] (legacy name 28) DPYD Additional Information: In addition to increased risk of 5-fluorouracil toxicity, variants in the DPYD gene may be associated with DPD deficiency, an autosomal recessive inborn error of metabolism (OMIM: 031312). DPD deficiency exhibits a wide range of [...] list below) in the DPYD gene (OMIM 362307) and UGT1A1 gene (OMIM 439932). This test does not detect all sequence [...] included)... Performed By: #### D UPNL1 ####[facility] [id number] [address] [place] HBV core Ab Ser Qlon 025 HBV core Ab Ql (S) Negative Normal Negative [facility] Comment on above: Order Comment: Speci men Type: BLOOD SPECIMENOrdering Facility: [facility] Address: [address] [place] [address] Result Comment: No e vidence of current or past infection with Hepatitis B virus. Should recent infection be suspected, repeat testing may be considered 3-4 weeks after this draw. Performed By: #### 5 195-3, 99327-9, 86895-2 ####[facility] LABCLIA [id number] [address] HBV surface Ab Ql (S)on 08-09 HBV surface Ab Qn (S) <8.00 Normal [facility] Comment on above: Order Comment: Speci men Type: BLOOD SPECIMENOrdering Facility: [facility] Address: [address] [place] [address] Result Comment: <8 m IU/mL: No serological evidence of immunity to Hepatitis B Virus. >/= 8 to <12 mIU/mL: No serological evidence of immunity to Hepatitis B Virus. >/= 12 mIU/mL: Consistent with serological evidence of immunity to Hepatitis B Virus. Performed By: #### 5 195-3, 48798-5, 08000-1 ####[facility] LABCLIA [id number] [address] [place] HBV surface Ab Ser Qlon 08-09 HBV surface Ab Ql (S) Negative Normal [facility] Comment on above: Order Comment: Speci men Type: BLOOD SPECIMENOrdering Facility: [facility] Address: [address] [place] [address] Result Comment: No s erological evidence of immunity to Hepatitis B Virus. Performed By: #### 5 195-3, 15241-8, 40669-8 ####[facility] LABCLIA [id number] [address] [place] HBV surface Ag Ser Qlon 07-3 HBV surface Ag Ql (S) Negative Normal Negative [facility] Comment on above: Order Comment: Speci men Type: BLOOD SPECIMENOrdering Facility: [facility] Address: [address] [place] [address] Performed By: #### 5 195-3, 35034-6, 21826-5 ####[facility] LABCLIA [id number] [address] [place] HCV Ab Ser Qlon 09-05-2024 HCV Ab Ql (S) Negative Normal Negative [facility] Comment on above: Order Comment: Speci men Type: BLOOD SPECIMENOrdering Facility: [facility] Address: [address] [place] [address] Result Comment: The result suggests no evidence of infection with Hepatitis C virus. Should recent infection be suspected, repeat testing may be considered 4-6 weeks after this draw. Performed By: #### 1 6128-1 ####[facility] LABCLIA [id number] [place] [address] [place] Cardiology Visit Reporton Cardiology Visit Report Normal [facility] [facility] BLADDER SCANon 08-29-2024 Bladder scan volume 32ml [facility] CNOVon 08-29-2024 CNOV Office Visit (UROLAE ) ABEALRDO IVORY ([id number]) 1950 M Date Time Provider Department 08/29/24 [...] (no units) Date Value 02/06/2019 Negative Specific [place], Ur (no units) Date Value 02/06/2019 1.017 [...] Take 5 mg by mouth once daily. rrphiqnmlvb-sihpbvztj-f ilanter (TRELEGY ELLIPTA) 200-62.5-25 mcg inhalation powder [...] <50cc 08/22 (more content not included)... Normal [facility] CNPNon 08-29-2024 [facility] Tele[facility] (HEMCA3) ABELARDO IVORY ([id number]) 1950 M Date Time Provider Department 08/29/24 CODEY CHRISTIANSON HEMCA3 During your visit today, we recorded the following information about you: Tabitha Hayes 08/29/2024 3:29 PM Signed Abelardo Ivory is calling Codey Christianson MD today regarding Hands Hanger - Other Patient wants to have his radiation locally at the [facility] in [place]. [place] told him they need information from Dr. Christianson to make sure they have the treatment he needs/getting. Can someone call the patient back Patient has been identified by name and birthdate. Requesting response back: [phone] (home) [phone] (cell) Tabitha Hayes August 29, 2024 Karen Post, ANGELA 08/29/2024 4:50 PM Signed Returned call to Abelardo Ivory regarding establishing care at [facility]. Contacted [facility] and spoke with Saira in hem/onc and she was able to schedule Darrel for: 09/05/2024 @ 2PM with Dr. Lakeisha Dawkins. All questions addressed. Karen KIRBY, RN Specialty [facility] Allergies As of Date: 08/29/2024 (No Known Allergies) Date Reviewed: 08/29/2024 Reviewed by: Marii Quick MA - Fully Assessed Reason for Visit: Hands Hanger - Other [[id number]] Prescriptions as of 08/29/2024 - phenazopyridine (PYRIDIUM) [...] 5 mg by mouth once daily. - wdellvsdbmv-dwhkydxiz-z ilanter (TRELEGY ELLIPTA) 200-62.5-25 mcg inhalation powder [...] Status:Closed by KAREN POST on 08/29/24 Normal [facility] UA DIP, URINE (POC)on 2024 BILIRUBIN UA (POCT) Negative Negative [facility] CLARITY UA (POCT) Clear [facility] COLOR UA (POCT) Yellow [facility] GLUCOSE UA (POCT) Negative Negative mg/dL [facility] Hemoglobin Ql (U) Large Abnormal Negative [facility] Interpretation and review of laboratory results Abnormal [facility] KETONE UA (POCT) Negative Negative mg/dL [facility] LEUKOCYTES UA (POCT) Moderate Abnormal Negative [facility] NITRITE UA (POCT) Negative Negative [facility] PH UA (POCT) 6 4.5 - 8.0 [facility] Protein Ql (U) 100 mg/dL Abnormal Negative [facility] SPECIFIC GRAVITY UA (POCT) 1.025 1.005 - 1.030 [facility] UROBILINOGEN UA (POCT) 0.2 Margaret l E.U./dL [facility] Location:[facility], [address] [place] [address], [id number] [place] [address] POINT OF CARE [facility] Telephone (MIGUEL A JONATHAN) ABELARDO IVORY ([id number]) 1950 [place] Date Time Provider Department 08/24/24 FARHEEN VALENTINE During your visit today, we recorded the following information about you: Farheen Valentine RN 08/24/2024 3:33 PM Signed CASE [id number]: Spoke with patient, states he saw urology this week and stent was placed. Patient states he has decided not to do the study and would like to follow in [place] for chemo if possible. Aware Dr Christianson will be notified. Allergies As of Date: 08/24/2024 (No Known Allergies) Date Reviewed: 08/21/2024 Reviewed by: Sonja Vargas, ANGELA - Fully Assessed Reason for Visit: CASE [id number] Update [Other] Prescriptions as of 08/24/2024 - amLODIPine (NORVASC) 5 mg tablet Take 5 mg by mouth once daily. - nsobkdinxmu-lzofxcyps-k ilanter (TRELEGY ELLIPTA) 200-62.5-25 mcg inhalation powder [...] Encounter Status:Closed by [facility]EN VAL[facility] (MIGUEL A JONATHAN) ABELARDO IVORY ([id number]) 1950 Date Time Provider Department 08/22/24 FARHEEN [...] 5 mg by mouth once daily. - rlbypyiqwvs-kabqrnpyb-l ilanter (TRELEGY ELLIPTA) 200-62.5-25 mcg inhalation powder [...] Status:Closed by FARHEEN VALENTINE on 08/22/24 Normal [facility] ANES POSTPROC EVALon -15-2 025 ANES POSTPROC EVAL HNO ID: [id number] Author: KALEIGH BENITES MD Service: Anesthesiology Author Type: Physician Type: Anesthesia Postprocedure Evaluation Filed: 08/21/2024 15:39 Note Text: POST ANESTHESIA EVALUATION NOTE : 1950 Procedure Summary Date: 08/21/24 Room / Location: NM OR / NM OR Anesthesia Start: 1501 Anesthesia Stop: 1534 [...] August 21, 2024 TIME: 3:38 PM CSN: [id number] Normal 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 SIGNATURE: Malcolm Carson MD PATIENT NAME: Abelardo Ivory DATE: August 21, 2024 TIME: 2:20 PM CSN: [id number] [facility] 08-21-2024 [facility] Telephone (UROLAE) ABELARDO IVORY ([id number]) 1950 M Date Time Provider Department 08/21/24 [...] results on phone as they live in [place] MD Avni Rosales Margaret 08/22/2024 11:10 AM Signed Lm to call. Earnestine Avni Kali Earnestine Burch 08/24/2024 11:11 AM Signed Spoke with patient and daughter ct scheduled they are aware of date, time and location for scan as well as prep instructions that my apply, will have blood work done on the same day. Earnestine Holly Kali Allergies As of Date: 08/21/2024 (No Known Allergies) Date Reviewed: 08/21/2024 Reviewed by: Sonja Vargas RN - Fully Assessed Reason for Visit: Surgical Followup [104] Orders [681] Primary Visit Diagnosis:Malignant neoplasm of urinary bladder, unspecified site (HCC) [C67.9] Other Visit Diagnosis:Other hydronephrosis [N13.39] Order(s):CT ABD/PEL WO IVCON [[id number]] Order #: [id number] FUTURE BASIC METABOLIC PANEL [SQBMP] Order #: [id number] FUTURE Prescriptions as of 08/24/2024 - amLODIPine (NORVASC) 5 mg tablet Take 5 mg by mouth once daily. - pdqgozlnelx-tupmzxanw-c ilanter (TRELEGY ELLIPTA) 200-62.5-25 mcg inhalation powder [...] Encounter Status:Closed by STACY GAUTHIER on 08/21/24 [facility] OPERATIVE NOon 08-21-2024 OPERATIVE NO HNO ID: [id number] Author: STACY GAUTHIER MD Service: Urology Author Type: Physician Type: Operative Report Filed: 08/22/2024 03:14 Note Text: OPERATIVE/PROCEDURE REPORT LOG ID: [id number] SURGERY/PROCEDURE DATE: 08/21/2024 INCISION/PROCEDURE START TIME: 3:16 PM INCISION CLOSE/PROCEDURE END TIME: 3:26 PM SURGEON(S)/PROCEDURALIS T(S) AND SPACE SYSTEMS OPERATIONS MANAGER(S): Surgeons and Role: * Stacy Gauthier MD [...] DO Urology PGY-2 08/21/2024 3:[address] [facility] Bacteria Ur Culton 5 Bacteria identified Cx Nom (U) CULTURE, URINE: No growth (<1,000 CFU/ml) Normal [facility] Comment on above: Performed By: #### 6 30-4 ####[facility] LABORATORYCLIA [id number] [place] [address] [place] HISTORY PHYSICALon 5 HISTORY PHYSICAL HNO ID: [id number] Author: MARISELA DSOUZA APRN.CNP Service: ? 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 rbpdihgkxto-zlbyaqwve-t ilanter (TRELEGY ELLIPTA) 200-62.5-25 mcg inhalation powder [...] pain scale. (more content not included)... Normal [facility] CNPMalina 08-03-2024 CNPN Telephone (MIGUEL A CASTILLO) ABELARDO IVORY ([id number]) 1950 M Date Time Provider Department 08/03/24 FARHEEN VALENTINE [...] holiday. Patient will need repeat TURBT at [facility] due to previously being done at [facility]. Allergies As of Date: 08/03/2024 (No Known Allergies) Date Reviewed: 08/02/2024 Reviewed by: Abdelrahman, Marii, MA - Fully Assessed Reason for Visit: [...] Encounter Status:Closed by FARHEEN VALENTINE on 08/03/24 [facility] CNOVon 08-02-2024 CNOV Office Visit (UROLAE ) ABELARDO IVORY ([id number]) 1950 M Date Time Provider Department 08/02/24 [...] (no units) Date Value 02/06/2019 Negative Specific [place], Ur (no units) Date Value 02/06/2019 1.017 [...] distress, well-hydra (more content not included)... Normal [facility] UA DIP, URINE (POC)on 2024 BILIRUBIN UA (POCT) Negative Negative [facility] CLARITY UA (POCT) Clear [facility] COLOR UA (POCT) Yellow [facility] GLUCOSE UA (POCT) Negative Negative mg/dL [facility] Hemoglobin Ql (U) Moderate Abnormal Negative [facility] Interpretation and review of laboratory results Abnormal [facility] KETONE UA (POCT) Negative Negative mg/dL [facility] LEUKOCYTES UA (POCT) Trace Abnormal Negative [facility] NITRITE UA (POCT) Negative Negative [facility] PH UA (POCT) 5.5 4.5 - 8.0 [facility] Protein Ql (U) 100 mg/dL Abnormal Negative [facility] SPECIFIC GRAVITY UA (POCT) 1.02 1.005 - 1.030 [facility] UROBILINOGEN UA (POCT) 0.2 Amrgaret l E.U./dL [facility] Location:[facility] Urology Dept, [address] [place] [address], [address] [place] [address] POINT OF CARE [facility] CT ABD/PEL W IVCONon 025 CT ABD/PEL W IVCON * * *Final Report* * * DATE OF EXAM: Jul 31 2024 2:11PM [facility] 0530 - CT ABD/PEL W IVCON / [...] compatible with urothelial cancer. No abdominopelvic metastasis. [facility] Tap: [facility]ENTER[facility] Transcribe Date/Time: Jul 31 2024 3:04P Dictated by : CARLINE CHAPMAN MD This examination was interpreted and the report reviewed and electronically signed by: PADMINI BRUSH MD on Jul 31 2024 8:26PM EST [id number] Normal [facility] CT Abdomen and Pelvis W cont rast Darci 07-31-2024 IMPRESSION: Wall thickening along bladder trigone compatible with urothelial cancer. No abdominopelvic metastasis. [place] Heel Tap: [facility] Transcribe Date/Time: Jul 31 2024 3:04P Dictated by : CARLINE CHAPAMN MD This examination was interpreted and the report reviewed and electronically signed by: PADMINI BRUSH MD on Jul 31 2024 8:26PM EST DIVISION OF RADIOLOGY * * *Final Report* * * DATE OF EXAM: Jul 31 2024 2:11PM [facility] 0530 - CT ABD/PEL W IVCON / [...] No additional findings. DIVISION OF RADIOLOGY Provider[facility] * * *Final Report* * * DATE OF EXAM: Jul 31 2024 2:11PM [facility] 0530 - CT ABD/PEL W IVCON / [...] compatible with urothelial cancer. No abdominopelvic metastasis. Skiver Heel Tap: PSCLynda Transcribe Date/Time: Jul 31 2024 3:04P Dictated by : CARLINE CHAPMAN MD This examination was interpreted and the report reviewed and electronically signed by: PADMINI BRUSH MD on Jul 31 2024 8:26PM EST [facility] Radiology Study observation (narrative) [facility] CT Abdomen and Pelvis W cont rast IVOrdered By: Ccf Provider on 07-31-20[address] [facility] CT CHEST W IVCONon CT CHEST W IVCON * * *Final Report* * * DATE OF EXAM: Jul 31 2024 2:11PM [facility] 0539 - CT CHEST W IVCON / [...] to a granulomatous process such as histoplasmosis. [employer] Tap: JESUS ALBERTO Transcribe Date/Time: Jul 31 2024 2:19P Dictated by : JOHAN CARTER MD This examination was interpreted and the report reviewed and electronically signed by: JOHAN CARTER MD on Jul 31 2024 2:29PM EST [id number] Normal [facility] CT Chest W contrast Darci IMPRESSION: 1. Stable nodules in left lung measuring up to 5 mm, these are indeterminate, recommend continued attention on follow-up. No new lung nodules or consolidations have developed. 2. Stable borderline enlarged lymph nodes in the mediastinum, probably reactive or related to a granulomatous process such as histoplasmosis. [employer] Tap: JESUS ALBERTO Transcribe Date/Time: Jul 31 2024 2:19P Dictated by : JOHAN CARTER MD This examination was interpreted and the report reviewed and electronically signed by: JOHAN CARTER MD on Jul 31 2024 2:29PM EST DIVISION OF RADIOLOGY * * *Final Report* * * DATE OF EXAM: Jul 31 2024 2:11PM [facility] 0539 - CT CHEST W IVCON / [...] No additional findings. DIVISION OF RADIOLOGY Provider, [facility] - 07/31/2024 * * *Final Report* * * DATE OF EXAM: Jul 31 2024 2:11PM [facility] 0539 - CT CHEST W IVCON / [...] to a granulomatous process such as histoplasmosis. [employer] Heel Tap: JESUS ALBERTO Transcribe Date/Time: Jul 31 2024 2:19P Dictated by : JOHAN CARTER MD This examination was interpreted and the report reviewed and electronically signed by: JOHAN CARTER MD on Jul 31 2024 2:29PM EST [facility] Radiology Study observation (narrative) [facility] OUTSIDE SURG PATH SLIDE REVI EWon 07-31-2024 AP DISCLAIMER Normal [facility] Comment on above: Order Comment: Speci men Type: FORMALIN-FIXED PARAFFIN-EMBEDDED TISSUE SPECIMENOrdering Facility: AP Outside Review Address: , , Result Comment: Panchito downey Developed Test (LDT) Disclaimer: Performance characteristics of immunohistochemical, immunofluorescent, and chromogenic in-situ hybridization tests have been determined by the performing laboratory within [facility]'s Abelardo Maria A [facility] Pathology and Laboratory Medicine Department ([facility], [facility], [facility], [facility], [facility], [facility], or [facility]) in a manner consistent with CLIA requirements. One or more of these tests may not have been cleared or approved by the FDA. RT-PLM is regulated under CLIA as qualified to perform high-complexity testing. These tests are used for clinical purposes. These should not be regarded as investigational or for research. Positive and negative controls stain appropriately. Performed By: #### L [id number] ####[facility] LABIA [id number] [place] [id number] [place] CASE REPORT Normal [facility] Comment on above: Order Comment: Speci men Type: FORMALIN-FIXED PARAFFIN-EMBEDDED TISSUE SPECIMENOrdering Facility: AP Outside Review Address: , , Result Comment: [facility] Pathology Report Case: [id number] Authorizing Provider: Codey Christianson MD Collected: 07/31/2024 09:18 AM Ordering Location: [facility] Received: 07/31/2024 09:16 AM [facility] Pathologist: Mj Beltran MD Specimen: Slide(s), 4 SLIDES [id number] Performed By: #### L [id number] ####[facility] LABCLIA [id number] [address] [address] [place] FINAL DIAGNOSIS Normal [facility] Comment on above: Order Comment: Speci men Type: FORMALIN-FIXED PARAFFIN-EMBEDDED TISSUE SPECIMENOrdering Facility: AP Outside Review Address: , , Result Comment: [facility]; [place], [place] ([id number]) A. Urinary bladder, transurethral resection: - Invasive urothelial carcinoma, high-grade, involving muscularis propria. JKM 07/31/2024 at 1058 EDT Performed By: #### L [id number] ####[facility] LABCLIA [id number] [address] [address] [place] [facility] FINAL PERFORMING LAB Normal [facility] Comment on above: Order Comment: Speci men Type: FORMALIN-FIXED PARAFFIN-EMBEDDED TISSUE SPECIMENOrdering Facility: Outside Review Address: , , Result Comment: Diag nostic interpretation performed at: [facility], [address] [address] CLIA# [id number] Brick Carrier: Antoine Tony MD Performed By: #### L [id number] ####[facility] LABCLIA [id number] [place] [address] [place] [facility] CBC W Auto Differential pane l (Bld)on 07-26-2024 Basophils (Bld) [#/Vol] 0.05 10*3/uL [facility] Basophils/100 WBC (Bld) 0.7 % [facility] Differential cell count method Nom (Bld) Auto [facility] Eosinophils (Bld) [#/Vol] 0.24 10*3/uL [facility] Eosinophils/100 WBC (Bld) 3.3 % [facility] Erythrocyte distribution width (RBC) [Ratio] 13.8 % 11.5 - 15.0 % [facility] Hematocrit (Bld) [Volume fraction] 38.1 % Low 39.0 - 51.0 % [facility] Hemoglobin (Bld) [Mass/Vol] 12.2 g/dL Low 13.0 - 17.0 g/dL [facility] Immature granulocytes (Bld) [#/Vol] [facility] Immature granulocytes/100 WBC (Bld) 0.1 % [facility] Interpretation and review of laboratory results Abnormal [facility] Lymphocytes (Bld) [#/Vol] 3.39 10*3/uL [facility] Lymphocytes/100 WBC (Bld) 46.3 % [facility] MCH (RBC) [Entitic mass] 29.8 pg 26.0 - 34.0 pg [facility] MCHC (RBC) [Mass/Vol] 32 g/dL 30.5 - 36.0 g/dL [facility] MCV (RBC) [Entitic vol] 92.9 fL 80.0 - 100.0 fL [facility] Monocytes (Bld) [#/Vol] 0.64 10*3/uL [facility] Monocytes/100 WBC (Bld) 8.7 % [facility] Neutrophils (Bld) [#/Vol] 2.99 10*3/uL [facility] Neutrophils/100 WBC (Bld) 40.9 % [facility] Nucleated RBC (Bld) [#/Vol] NINF [facility] Nucleated RBC/100 WBC (Bld) [Ratio] 0 % /100 WBC [facility] Platelet mean volume (Bld) [Entitic vol] 8.8 fL Low 9.0 - 12.7 fL [facility] Platelets (Bld) [#/Vol] 156 10*3/uL [facility] RBC (Bld) [#/Vol] 4.1 10*6/uL Low 4.20 - 6.0 0 m/uL [facility] WBC (Bld) [#/Vol] 7.32 10*3/uL [facility] Basophils (Bld) [#/Vol] 0.05 10*3/uL Normal <0.11 [facility] Comment on above: Order Comment: Speci men Type: BLOOD SPECIMENOrdering Facility: [facility] Address: [address] [place] [address] Performed By: #### 5 7021-8 ####[facility] [id number] [place] [address] [place] Basophils/100 WBC (Bld) 0.7 % Normal [facility] Comment on above: Order Comment: Speci men Type: BLOOD SPECIMENOrdering Facility: [facility] Address: [address] [place] [address] Performed By: #### 5 7021-8 ####[facility] [id number] [place] [address] [place] Differential cell count method Nom (Bld) Auto Normal [facility] Comment on above: Order Comment: Speci men Type: BLOOD SPECIMENOrdering Facility: [facility] Address: [address] [place] [address] Performed By: #### 5 7021-8 ####[facility] [id number] [place] [address] [place] Eosinophils (Bld) [#/Vol] 0.24 10*3/uL Normal <0.46 [facility] Comment on above: Order Comment: Speci men Type: BLOOD SPECIMENOrdering Facility: [facility] Address: [address] [place] [address] Performed By: #### 5 7021-8 ####[facility] [id number] [place] [address] [place] Eosinophils/100 WBC (Bld) 3.3 % Normal [facility] Comment on above: Order Comment: Speci men Type: BLOOD SPECIMENOrdering Facility: [facility] Address: [address] [place] [address] Performed By: #### 5 7021-8 ####[facility] [place] [id number] [place] [address] [place] Erythrocyte distribution width (RBC) [Ratio] 13.8 % Normal 11.5-15.0 [facility] Comment on above: Order Comment: Speci men Type: BLOOD SPECIMENOrdering Facility: [facility] Address: [address] [place] [address] Performed By: #### 5 7021-8 ####[facility] [id number] [place] [address] [place] Hematocrit (Bld) [Volume fraction] 38.1 % Low 39.0-51.0 [facility] Comment on above: Order Comment: Speci men Type: BLOOD SPECIMENOrdering Facility: [facility] Address: [address] [place] [address] Performed By: #### 5 7021-8 ####[facility] [id number] [address] [id number] [address] [place] Hemoglobin (Bld) [Mass/Vol] 12.2 g/dL Low 13.0-17.0 [facility] Comment on above: Order Comment: Speci men Type: BLOOD SPECIMENOrdering Facility: [facility] Address: [address] [place] [address] Performed By: #### 5 7021-8 ####[facility] [id number] [place] [address] [place] Immature granulocytes (Bld) [#/Vol] 10*3/uL Normal <0.10 [facility] Comment on above: Order Comment: Speci men Type: BLOOD SPECIMENOrdering Facility: [facility] Address: [address] [place] [address] Performed By: #### 5 7021-8 ####[facility] [id number] [place] [address] [place] Immature granulocytes/100 WBC (Bld) 0.1 % Normal [facility] Comment on above: Order Comment: Speci men Type: BLOOD SPECIMENOrdering Facility: [facility] Address: [address] [place] [address] Performed By: #### 5 7021-8 ####[facility] [id number] [place] [address] [place] Lymphocytes (Bld) [#/Vol] 3.39 10*3/uL Normal 1.00-4.00 [facility] Comment on above: Order Comment: Speci men Type: BLOOD SPECIMENOrdering Facility: [facility] Address: [address] [place] [address] Performed By: #### 5 7021-8 ####[facility] [place] [id number] [place] [address] [place] Lymphocytes/100 WBC (Bld) 46.3 % Normal [facility] Comment on above: Order Comment: Speci men Type: BLOOD SPECIMENOrdering Facility: [facility] Address: [address] [place] [address] Performed By: #### 5 7021-8 ####[facility] [id number] [place] [address] [place] [facility] MCH (RBC) [Entitic mass] 29.8 pg Normal 26.0-34.0 [facility] Comment on above: Order Comment: Speci men Type: BLOOD SPECIMENOrdering Facility: [facility] Address: [address] [place] [address] Performed By: #### 5 7021-8 ####[facility] [id number] [place] [address] [place] OF [place] MCHC (RBC) [Mass/Vol] 32.0 g/dL Normal 30.5-36.0 [facility] Comment on above: Order Comment: Speci men Type: BLOOD SPECIMENOrdering Facility: [facility] Address: [address] [place] [address] Performed By: #### 5 7021-8 ####[facility] [id number] [place] [address] [place] MCV (RBC) [Entitic vol] 92.9 fL Normal 80.0-100.0 [facility] Comment on above: Order Comment: Speci men Type: BLOOD SPECIMENOrdering Facility: [facility] Address: [address] [place] [address] Performed By: #### 5 7021-8 ####[facility] [id number] [place] [address] [place] Monocytes (Bld) [#/Vol] 0.64 10*3/uL Normal <0.87 [facility] Comment on above: Order Comment: Speci men Type: BLOOD SPECIMENOrdering Facility: [facility] Address: [address] [place] [address] Performed By: #### 5 7021-8 ####[facility] [id number] [place] [address] [place] Monocytes/100 WBC (Bld) 8.7 % Normal [facility] Comment on above: Order Comment: Speci men Type: BLOOD SPECIMENOrdering Facility: [facility] Address: [address] [place] [address] Performed By: #### 5 7021-8 ####[facility] [id number] [place] [address] [place] Neutrophils (Bld) [#/Vol] 2.99 10*3/uL Normal 1.45-7.50 [facility] Comment on above: Order Comment: Speci men Type: BLOOD SPECIMENOrdering Facility: [facility] Address: [address] [place] [address] Performed By: #### 5 7021-8 ####[facility] [id number] [place] [address] [place] Neutrophils/100 WBC (Bld) 40.9 % Normal [facility] Comment on above: Order Comment: Speci men Type: BLOOD SPECIMENOrdering Facility: [facility] Address: [address] [place] [address] Performed By: #### 5 7021-8 ####[facility] [id number] [place] [address] [place] Nucleated RBC (Bld) [#/Vol] 10*3/uL Normal <0.01 [facility] Comment on above: Order Comment: Speci men Type: BLOOD SPECIMENOrdering Facility: [facility] Address: [address] [place] [address] Performed By: #### 5 7021-8 ####[facility] [id number] [place] [address] [place] Nucleated RBC/100 WBC (Bld) [Ratio] 0.0 /100 WBC Normal [facility] Comment on above: Order Comment: Speci men Type: BLOOD SPECIMENOrdering Facility: [facility] Address: [address] [place] [address] Performed By: #### 5 7021-8 ####[facility] [id number] [place] [address] [place] Platelet mean volume (Bld) [Entitic vol] 8.8 fL Low 9.0-12.7 [facility] Comment on above: Order Comment: Speci men Type: BLOOD SPECIMENOrdering Facility: [facility] Address: [address] [place] [address] Performed By: #### 5 7021-8 ####[facility] [id number] [place] [address] [place] Platelets (Bld) [#/Vol] 156 10*3/uL Normal 150-400 [facility] Comment on above: Order Comment: Speci men Type: BLOOD SPECIMENOrdering Facility: [facility] Address: [address] [place] [address] Performed By: #### 5 7021-8 ####[facility] [id number] [place] [address] [place] RBC (Bld) [#/Vol] 4.10 10*6/uL Low 4.20-6.00 [facility] Comment on above: Order Comment: Speci men Type: BLOOD SPECIMENOrdering Facility: [facility] Address: [address] [place] [address] Performed By: #### 5 7021-8 ####[facility] [id number] [place] [address] [place] WBC (Bld) [#/Vol] 7.32 10*3/uL Normal 3.70-11.00 [facility] Comment on above: Order Comment: Speci men Type: BLOOD SPECIMENOrdering Facility: [facility] Address: [address] [place] [address] Performed By: #### 5 7021-8 ####[facility] [id number] [address] [facility] CNOVSPon 07-26-2024 CNOVSP Visit (SP) Office ([facility]) ABELARDO IVORY ([id number]) 1950 M Date Time Provider Department 07/26/24 9:20 AM CODEY CHRISTIANSON [facility] During your visit today, we recorded the following information about you: Temperature Pulse Respiration Blood pressure 97.3 degrees 50/minute 18/minute 150/67 Weight Height 71.1 kg 1.676 m Karen Coelho LPN 08/07/2024 2:06 PM Signed Additional intake questions: Has the patient had fever, nausea, vomiting, diarrhea, constipation, fatigue for > 1 week? No Does the patient have a decreased appetite? No Does patient want to see a Conciliation Court Judge? No (yes to any of above refer patient to schedulers for dietitian appointment) ) Does patient have any new or increased numbness or tingling of extremities? No Is patient interested in fertility information? No Does patient need any prescription refills? No Does patient have an advanced directive in place? Yes, copies are in [employer] Electronically Signed By: SUDHA Davis Lisa, LPN 08/07/2024 2:06 PM Signed Additional intake questions: Has the patient had fever, nausea, vomiting, diarrhea, constipation, fatigue for > 1 week? No Does the patient have a decreased appetite? No Does patient want to see a Conciliation Court Judge? No (yes to any of above refer patient to schedulers for dietitian appointment) ) Does patient have any new or increased numbness or tingling of extremities? No Is patient interested in fertility information? No Does patient need any prescription refills? No Does patient have an advanced directive in place? Yes, copies are in [employer] Electronically Signed By: SUDHA Davis Shilpa, MD 08/07/2024 2:06 PM Signed [facility] INITIAL CONSULT NOTE Date [...] 0 a (more content not included)... Normal [facility] Comprehensive metabolic 2000 panelon 07-26-2024 Albumin [Mass/Vol] 4.2 g/dL 3.9 - 4.9 g/dL [facility] ALP [Catalytic activity/Vol] 76 U/L 38 - 113 U/L [facility] ALT [Catalytic activity/Vol] 12 U/L 10 - 54 U/L [facility] Anion gap [Moles/Vol] 13 mmol/L 8 - 15 mmol/L [facility] AST [Catalytic activity/Vol] 19 U/L 14 - 40 U/L [facility] Bilirubin [Mass/Vol] 0.3 mg/dL 0.2 - 1 .3 mg/dL [facility] Calcium [Mass/Vol] 9.3 mg/dL 8.5 - 10. 2 mg/dL [facility] Chloride [Moles/Vol] 103 mmol/L 98 - 10 7 mmol/L [facility] CO2 [Moles/Vol] 23 mmol/L 22 - 30 mmol/L [facility] Creatinine [Mass/Vol] 1.54 mg/dL High 0.73 - 1.22 mg/dL [facility] GFR/1.73 sq M.predicted among non-blacks MDRD (S/P/Bld) [Vol rate/Area] 47 mL/min/{1.73_m2} Low - PINF [facility] Comment on above: Estimated Glomerular Filtration [...] 106 mg/dL High 74 - 99 mg/dL [facility] Comment on above: The [place] Diabete s Association (ADA) provides guidance for [...] Standards of Medical Care in Diabetes 2016, [place] Diabetes Association. Diabetes Care. 2016.39(Suppl 1). Interpretation and review of laboratory results Abnormal [facility] Potassium [Moles/Vol] 4.9 mmol/L 3.7 - 5.1 mmol/L [facility] Protein [Mass/Vol] 7.1 g/dL 6.3 - 8.0 g/dL [facility] Sodium [Moles/Vol] 139 mmol/L 136 - 144 mmol/L [facility] Urea nitrogen [Mass/Vol] 34 mg/dL High 9 - 24 mg/dL [facility] Albumin [Mass/Vol] 4.2 g/dL Normal 3.9-4.9 [facility] Comment on above: Order Comment: Speci men Type: BLOOD SPECIMENOrdering Facility: [facility] Address: [address] [place] [address] Performed By: #### 2 4323-8 ####[facility] [id number] [place] [address] [place] ALP [Catalytic activity/Vol] 76 U/L Normal 38-113 [facility] Comment on above: Order Comment: Speci men Type: BLOOD SPECIMENOrdering Facility: [facility] Address: [address] [place] [address] Performed By: #### 2 4323-8 ####[facility] [id number] [place] [address] [place] ALT [Catalytic activity/Vol] 12 U/L Normal 10-54 [facility] Comment on above: Order Comment: Speci men Type: BLOOD SPECIMENOrdering Facility: [facility] Address: [address] [place] [address] Performed By: #### 2 4323-8 ####[facility] [id number] [place] [address] [place] Anion gap [Moles/Vol] 13 mmol/L Normal 8-15 [facility] Comment on above: Order Comment: Speci men Type: BLOOD SPECIMENOrdering Facility: [facility] Address: [address] [place] [address] Performed By: #### 2 4323-8 ####[facility] [id number] [place] [address] [place] AST [Catalytic activity/Vol] 19 U/L Normal 14-40 [facility] Comment on above: Order Comment: Speci men Type: BLOOD SPECIMENOrdering Facility: [facility] Address: [address] [place] [address] Performed By: #### 2 4323-8 ####[facility] [id number] [place] [address] [place] Bilirubin [Mass/Vol] 0.3 mg/dL Normal 0.2-1.[address] [facility] Comment on above: Order Comment: Speci men Type: BLOOD SPECIMENOrdering Facility: [facility] Address: [address] [place] [address] Performed By: #### 2 4323-8 ####[facility] [id number] [place] [address] [place] Calcium [Mass/Vol] 9.3 mg/dL Normal 8.5-10.2 [facility] Comment on above: Order Comment: Speci men Type: BLOOD SPECIMENOrdering Facility: [facility] Address: [address] [place] [address] Performed By: #### 2 4323-8 ####[facility] [id number] [place] [address] [place] Chloride [Moles/Vol] 103 mmol/L Normal 98-[address] [facility] Comment on above: Order Comment: Speci men Type: BLOOD SPECIMENOrdering Facility: [facility] Address: [address] [place] [address] Performed By: #### 2 4323-8 ####[facility] [id number] [place] [address] [place] CO2 [Moles/Vol] 23 mmol/L Normal 22-30 [facility] Comment on above: Order Comment: Speci men Type: BLOOD SPECIMENOrdering Facility: [facility] Address: [address] [place] [address] Performed By: #### 2 4323-8 ####[facility] [id number] [place] [address] [place] Creatinine [Mass/Vol] 1.54 mg/dL High 0.73-1.22 [facility] Comment on above: Order Comment: Speci men Type: BLOOD SPECIMENOrdering Facility: [facility] Address: [address] [place] [address] Performed By: #### 2 4323-8 ####[facility] [id number] [place] [address] [place] Creatinine and Glomerular filtration rate.predicted panel (S/P/Bld) 47 mL/min/1.73m??? Low >=60 [facility] Comment on above: Order Comment: Raul hutson Type: BLOOD SPECIMENOrdering Facility: [facility] Address: [address] [place] [address] Result Comment: Amy mated Glomerular Filtration Rate [...] GFR. Performed By: #### 2 4323-8 ####[facility] [id number] [place] [address] [place] Glucose [Mass/Vol] 106 mg/dL High 74-99 [facility] Comment on above: Order Comment: Raul hutson Type: BLOOD SPECIMENOrdering Facility: [facility] Address: [address] [place] [address] Result Comment: The [place] Diabetes Association (ADA) provides guidance for cutoff [...] Standards of Medical Care in Diabetes 2016, [place] Diabetes Association. Diabetes Care. 2016.39(Suppl 1). Performed By: #### 2 4323-8 ####[facility] [id number] [place] [address] [place] Potassium [Moles/Vol] 4.9 mmol/L Normal 3.7-5.1 [facility] Comment on above: Order Comment: Raul hutson Type: BLOOD SPECIMENOrdering Facility: [facility] Address: [address] [id number] Performed By: #### 2 4323-8 ####[facility] [id number] [place] [address] [place] Protein [Mass/Vol] 7.1 g/dL Normal 6.3-8.0 [facility] Comment on above: Order Comment: Speci men Type: BLOOD SPECIMENOrdering Facility: [facility] Address: [address] [place] [address] Performed By: #### 2 4323-8 ####[facility] [id number] [place] [address] [place] Sodium [Moles/Vol] 139 mmol/L Normal 136-144 [facility] Comment on above: Order Comment: Speci men Type: BLOOD SPECIMENOrdering Facility: [facility] Address: [address] [place] [address] Performed By: #### 2 4323-8 ####[facility] [id number] [place] [address] [place] Urea nitrogen [Mass/Vol] 34 mg/dL High 9-24 [facility] Comment on above: Order Comment: Speci men Type: BLOOD SPECIMENOrdering Facility: [facility] Address: [address] [place] [address] Performed By: #### 2 4323-8 ####[facility] [id number] [place] [address] [place] Anion gap in Serum or Plasma Ordered By: Padmini Carrasco on 07-09-2024 Anion gap [Moles/Vol] 10 mmol/L 5-15 [facility] BUN/creatinine ratioOrdered By: Padmini Carrasco on 07-09-2024 Urea nitrogen/Creatinine [Mass ratio] 22.0 mg/mg High - [facility] Basic Metabolic Profile (BMP )on 07-09-2024 BUN/CRE 22.0 RATIO High - [facility] Comment on above: Order Comment: PER P T-JUST RANNEY ORDER Performed By: #### L 500.2500 ####[facility] [address] [place], [address] Calcium [Mass/Vol] 9.2 mg/dL Normal 7.6-11.0 [facility] Comment on above: Order Comment: PER P T-JUST RANNEY ORDER Performed By: #### L 500.2500 ####[facility] [address] [place], [address] Chloride [Moles/Vol] 105 mmol/L Normal 98-108 [facility] Comment on above: Order Comment: PER P T-JUST RANNEY ORDER Performed By: #### L 500.2500 ####[facility] [address] [place], [address] CO2 [Moles/Vol] 26.1 mmol/L Normal 21.0-32.0 [facility] Comment on above: Order Comment: PER P T-JUST RANNEY ORDER Performed By: #### L 500.2500 ####[facility] [address] [place], [address] Creatinine [Mass/Vol] 1.74 mg/dL High 0.70-1.20 [facility] Comment on above: Order Comment: PER P T-JUST RANNEY ORDER Performed By: #### L 500.2500 ####[facility] [address] [place], [address] GAP 10 Normal 5-15 [facility] Comment on above: Order Comment: PER P T-JUST RANNEY ORDER Performed By: #### L 500.2500 ####[facility] [address] [place], [address] GFR/1.73 sq M.predicted among non-blacks MDRD (S/P/Bld) [Vol rate/Area] 41 mL/min/{1.73_m2} Low >60 [facility] Comment on above: Order Comment: PER P T-JUST RANNEY ORDER Result Comment: mL/m in/1.73m2 CKD-EPI Creatinine Equation (2020) Performed By: #### L 500.2500 ####[facility] [address] [place], [address] Glucose [Mass/Vol] 108 mg/dL High 70-99 [facility] Comment on above: Order Comment: PER P T-JUST RANNEY ORDER Performed By: #### L 500.2500 ####[facility] [address] [place], [address] Potassium [Moles/Vol] 4.8 mmol/L Normal 3.3-5.1 [facility] Comment on above: Order Comment: PER P T-JUST RANNEY ORDER Performed By: #### L 500.2500 ####[facility] [address] [place], [address] Sodium [Moles/Vol] 141 mmol/L Normal 133-145 [facility] Comment on above: Order Comment: PER [facility] RANHARTSEL ORDER Performed By: #### L 500.2500 ####[facility] [address] [place], [address] Urea nitrogen [Mass/Vol] 38 mg/dL High 4-19 [facility] Comment on above: Order Comment: PER [facility] ORDER Performed By: #### L 500.2500 ####[facility] [address] [place], [address] Carbon dioxide, total [Moles /volume] in Central venous bloodOrdered By: Padmini Carrasco on 07-09-2024 CO2 [Moles/Vol] 26.1 mmol/L 21.0-32.0 [facility] Chloride assayOrdered By: Rambo Carrasco on 07-09-2024 Chloride [Moles/Vol] 105 mmol/L 98-108 [facility] Glomerular filtration rate ( GFR) estimation/1.73 sq m using serum, plasma, or whole bOrdered By: Padmini Carrasco on 07-09-2024 GFR/1.73 sq M.predicted among non-blacks MDRD (S/P/Bld) [Vol rate/Area] 41 mL/min/{1.73_m2} Low >60 [facility] Comment on above: mL/min/1.73m2 CKD-EP I Creatinine Equation (2020) Potassium measurement (mass/ volume)Ordered By: Padmini Carrasco on 07-09-2024 Potassium (Unsp spec) [Mass/Vol] 4.8 mmol/L 3.3-5.1 [facility] Serum creatinine measurement (mass/volume)Ordered By: Padmini Carrasco on 07-09-2024 Creatinine [Mass/Vol] 1.74 mg/dL High 0.70-1.20 [facility] Serum glucose measurement (m ass/volume)Ordered By: Padmini Carrasco on 07-09-2024 Glucose [Mass/Vol] 108 mg/dL High 70-99 [facility] Serum or plasma calcium jamel urement (mass/volume)Ordered By: Padmini Carrasco on 07-09-2024 Calcium [Mass/Vol] 9.2 mg/dL 7.6-11.0 [facility] Serum or plasma urea nitroge n measurement (mass/volume)Ordered By: Padmini Carrasco on 07-09-2024 Urea nitrogen [Mass/Vol] 38 mg/dL High 05-26 [facility] Sodium levelOrdered By: Jaz Carrasco on 07-09-2024 Sodium [Moles/Vol] 141 mmol/L 133-145 [facility] Basic Metabolic Profile (BMP )on 06-30-2024 BUN Normal 05-26 [facility] Comment on above: Result Comment: Canc elled via OM: Order cancelled - Patient discharged Performed By: #### L 100.0100, L500.2500 ####[facility] [address] [place], [place], [id number] BUN/CRE Normal - [facility] Comment on above: Result Comment: Canc elled via OM: Order cancelled - Patient discharged Performed By: #### L 100.0100, L500.2500 ####[facility] [address] [place], [address] Calcium Normal 7.6-11.0 [facility] Comment on above: Result Comment: Canc elled via OM: Order cancelled - Patient discharged Performed By: #### L 100.0100, L500.2500 ####[facility] [address] [place], [address] CL Normal 98-108 [facility] Comment on above: Result Comment: Canc elled via OM: Order cancelled - Patient discharged Performed By: #### L 100.0100, L500.2500 ####[facility] [address] [place], [address] CO2 Normal 21.0-32.0 [facility] Comment on above: Result Comment: Canc elled via OM: Order cancelled - Patient discharged Performed By: #### L 100.0100, L500.2500 ####[facility] [address] [place], [address] CREAT,SERUM Normal 0.70-1.20 [facility] Comment on above: Result Comment: Canc elled via OM: Order cancelled - Patient discharged Performed By: #### L 100.0100, L500.2500 ####[facility] [address] [place], [address] eGFR Normal >60 [facility] Comment on above: Result Comment: Canc elled via OM: Order cancelled - Patient discharged Performed By: #### L 100.0100, L500.2500 ####[facility] [address] [place], [address] GAP Normal 5-15 [facility] Comment on above: Result Comment: Canc elled via OM: Order cancelled - Patient discharged Performed By: #### L 100.0100, L500.2500 ####[facility] [address] [place], [address] GLU Normal 70-99 [facility] Comment on above: Result Comment: Canc elled via OM: Order cancelled - Patient discharged Performed By: #### L 100.0100, L500.2500 ####[facility] [address] [place], [address] Potassium Normal 3.3-5.1 [facility] Comment on above: Result Comment: Canc elled via OM: Order cancelled - Patient discharged Performed By: #### L 100.0100, L500.2500 ####[facility] [address] [place], [address] Basic Metabolic Profile (BMP) Normal 133-145 [facility] Comment on above: Result Comment: Canc elled via OM: Order cancelled - Patient discharged Performed By: #### L 100.0100, L500.2500 ####[facility] [address] [place], [address] CBC W/Diff, Automatedon 05-2 Absolute Neut Normal 2.0-7.7 [facility] Comment on above: Result Comment: Canc elled via OM: Order cancelled - Patient discharged Performed By: #### L 100.0100, L500.2500 ####[facility] [address] [place], [address] HCT Normal 40-54 [facility] Comment on above: Result Comment: Canc elled via OM: Order cancelled - Patient discharged Performed By: #### L 100.0100, L500.2500 ####[facility] [address] [place], [address] HGB Normal 13.0-16.5 [facility] Comment on above: Result Comment: Canc elled via OM: Order cancelled - Patient discharged Performed By: #### L 100.0100, L500.2500 ####[facility] [facility] [address] [place], [address] MCH Normal 27.0-32.0 [facility] Comment on above: Result Comment: Canc elled via OM: Order cancelled - Patient discharged Performed By: #### L 100.0100, L500.2500 ####[facility] [address] [place], [address] MCHC Normal 32-36 [facility] Comment on above: Result Comment: Canc elled via OM: Order cancelled - Patient discharged Performed By: #### L 100.0100, L500.2500 ####[facility] [address] [place], [address] MCV Normal 80-94 [facility] Comment on above: Result Comment: Canc elled via OM: Order cancelled - Patient discharged Performed By: #### L 100.0100, L500.2500 ####[facility] [address] [place], [address] NEUT% Normal 47-70 [facility] Comment on above: Result Comment: Canc elled via OM: Order cancelled - Patient discharged Performed By: #### L 100.0100, L500.2500 ####[facility] [address] [place], [address] PLT Normal 150-450 [facility] Comment on above: Result Comment: Canc elled via OM: Order cancelled - Patient discharged Performed By: #### L 100.0100, L500.2500 ####[facility] [address] [place], [address] RBC Normal 4.6-6.2 [facility] Comment on above: Result Comment: Canc elled via OM: Order cancelled - Patient discharged Performed By: #### L 100.0100, L500.2500 ####[facility] [address] [place], [address] RDW CV Normal 11.6-14.6 [facility] Comment on above: Result Comment: Canc elled via OM: Order cancelled - Patient discharged Performed By: #### L 100.0100, L500.2500 ####[facility] [address] [place], [address] RDW SD Normal 35.1-43.9 [facility] Comment on above: Result Comment: Canc elled via OM: Order cancelled - Patient discharged Performed By: #### L 100.0100, L500.2500 ####[facility] [address] [place], [address] WBC Normal 4.4-11.0 [facility] Comment on above: Result Comment: Canc elled via OM: Order cancelled - Patient discharged Performed By: #### L 100.0100, L500.2500 ####[facility] [address] [place], [address] Basic Metabolic Profile (BMP )on 06-29-2024 BUN Normal 4-19 [facility] Comment on above: Result Comment: Canc elled via OM: Order cancelled - Patient discharged Performed By: #### L 100.0100, L500.2500 ####[facility] [address] [place], [address] BUN/CRE Normal 10-20 [facility] Comment on above: Result Comment: Canc elled via OM: Order cancelled - Patient discharged Performed By: #### L 100.0100, L500.2500 ####[facility] [address] [place], [address] Calcium Normal 7.6-11.0 [facility] Comment on above: Result Comment: Canc elled via OM: Order cancelled - Patient discharged Performed By: #### L 100.0100, L500.2500 ####[facility] [address] [place], [address] CL Normal 98-108 [facility] Comment on above: Result Comment: Canc elled via OM: Order cancelled - Patient discharged Performed By: #### L 100.0100, L500.2500 ####[facility] [address] [place], [address] CO2 Normal 21.0-32.0 [facility] Comment on above: Result Comment: Canc elled via OM: Order cancelled - Patient discharged Performed By: #### L 100.0100, L500.2500 ####[facility] [address] [place], [address] CREAT,SERUM Normal 0.70-1.20 [facility] Comment on above: Result Comment: Canc elled via OM: Order cancelled - Patient discharged Performed By: #### L 100.0100, L500.2500 ####[facility] [address] [place], [address] eGFR Normal >60 [facility] Comment on above: Result Comment: Canc elled via OM: Order cancelled - Patient discharged Performed By: #### L 100.0100, L500.2500 ####[facility] [address] [place], [address] GAP Normal 5-15 [facility] Comment on above: Result Comment: Canc elled via OM: Order cancelled - Patient discharged Performed By: #### L 100.0100, L500.2500 ####[facility] [address] [place], [address] GLU Normal 70-99 [facility] Comment on above: Result Comment: Canc elled via OM: Order cancelled - Patient discharged Performed By: #### L 100.0100, L500.2500 ####[facility] [address] [place], [address] Potassium Normal 3.3-5.1 [facility] Comment on above: Result Comment: Canc elled via OM: Order cancelled - Patient discharged Performed By: #### L 100.0100, L500.2500 ####[facility] [address] [place], [address] Basic Metabolic Profile (BMP) Normal 133-145 [facility] Comment on above: Result Comment: Canc elled via OM: Order cancelled - Patient discharged Performed By: #### L 100.0100, L500.2500 ####[facility] [address] [place], [address] CBC W/Diff, Automatedon 05-2 Absolute Neut Normal 2.0-7.7 [facility] Comment on above: Result Comment: Canc elled via OM: Order cancelled - Patient discharged Performed By: #### L 100.0100, L500.2500 ####[facility] [address] [place], [address] HCT Normal 40-54 [facility] Comment on above: Result Comment: Canc elled via OM: Order cancelled - Patient discharged Performed By: #### L 100.0100, L500.2500 ####[facility] [address] [place], [address] HGB Normal 13.0-16.5 [facility] Comment on above: Result Comment: Canc elled via OM: Order cancelled - Patient discharged Performed By: #### L 100.0100, L500.2500 ####[facility] [address] [place], [address] MCH Normal 27.0-32.0 [facility] Comment on above: Result Comment: Canc elled via OM: Order cancelled - Patient discharged Performed By: #### L 100.0100, L500.2500 ####[facility] [address] [place], [address] MCHC Normal 32-36 [facility] Comment on above: Result Comment: Canc elled via OM: Order cancelled - Patient discharged Performed By: #### L 100.0100, L500.2500 ####[facility] [address] [place], [address] MCV Normal 80-94 [facility] Comment on above: Result Comment: Canc elled via OM: Order cancelled - Patient discharged Performed By: #### L 100.0100, L500.2500 ####[facility] [address] [place], [address] NEUT% Normal 47-70 [facility] Comment on above: Result Comment: Canc elled via OM: Order cancelled - Patient discharged Performed By: #### L 100.0100, L500.2500 ####[facility] [address] [place], [address] PLT Normal 150-450 [facility] Comment on above: Result Comment: Canc elled via OM: Order cancelled - Patient discharged Performed By: #### L 100.0100, L500.2500 ####[facility] [address] [place], [address] RBC Normal 4.6-6.2 [facility] Comment on above: Result Comment: Canc elled via OM: Order cancelled - Patient discharged Performed By: #### L 100.0100, L500.2500 ####[facility] [address] [place], [address] RDW CV Normal 11.6-14.6 [facility] Comment on above: Result Comment: Canc elled via OM: Order cancelled - Patient discharged Performed By: #### L 100.0100, L500.2500 ####[facility] [address] [place], [address] RDW SD Normal 35.1-43.9 [facility] Comment on above: Result Comment: Canc elled via OM: Order cancelled - Patient discharged Performed By: #### L 100.0100, L500.2500 ####[facility] [address] [place], [address] WBC Normal 4.4-11.0 [facility] Comment on above: Result Comment: Canc elled via OM: Order cancelled - Patient discharged Performed By: #### L 100.0100, L500.2500 ####[facility] [address] [place], [address] Absolute lymphocyte countOrd ered By: Jose J Winston on 06-28-2024 Lymphocytes Auto (Unsp spec) [#/Vol] 0.97 10*3/uL 0.83-4.51 [facility] Absolute neutrophil countOrd ered By: Jose Jalycia Winston on 06-28-2024 Neutrophils (Bld) [#/Vol] 6.6 10*3/uL 2.0-7.7 [facility] Anion gap in Serum or Plasma Ordered By: Jose J Winston on 06-28-2024 Anion gap [Moles/Vol] 12 mmol/L 5-15 [facility] Automated lymphocyte count a s percentage of total leukocytesOrdered By: Jose J Winston on 06-28-2024 Lymphocytes/100 WBC Auto (Unsp spec) 11.9 % Low 19-41 [facility] BUN/creatinine ratioOrdered By: Jose J Winston on 06-28-2024 Urea nitrogen/Creatinine [Mass ratio] 16.4 mg/mg 10- [facility] Basic Metabolic Profile (BMP )on 06-28-2024 BUN/CRE 16.4 RATIO Normal 10-20 [facility] Comment on above: Performed By: #### L 100.0100, L500.2500 ####[facility] [address] [place], [address] Calcium [Mass/Vol] 8.1 mg/dL Normal 7.6-11.0 [facility] Comment on above: Performed By: #### L 100.0100, L500.2500 ####[facility] [address] [place], [address] Chloride [Moles/Vol] 102 mmol/L Normal 98-108 [facility] Comment on above: Performed By: #### L 100.0100, L500.2500 ####[facility] [address] [place], [address] CO2 [Moles/Vol] 20.1 mmol/L Low 21.0-32.0 [facility] Comment on above: Performed By: #### L 100.0100, L500.2500 ####[facility] [address] [place], [address] Creatinine [Mass/Vol] 2.95 mg/dL High 0.70-1.20 [facility] Comment on above: Performed By: #### L 100.0100, L500.2500 ####[facility] [address] [place], [address] ECRCL 19.82 ml/min Low 50-250 [facility] Comment on above: Performed By: #### L 100.0100, L500.2500 ####[facility] [address] [place], [address] GAP 12 Normal 5-15 [facility] Comment on above: Performed By: #### L 100.0100, L500.2500 ####[facility] [address] [place], [address] GFR/1.73 sq M.predicted among non-blacks MDRD (S/P/Bld) [Vol rate/Area] 22 mL/min/{1.73_m2} Low >60 [facility] Comment on above: Result Comment: mL/m in/1.73m2 CKD-EPI Creatinine Equation (2020) Performed By: #### L 100.0100, L500.2500 ####[facility] [address] [place], [address] Glucose [Mass/Vol] 132 mg/dL High 70-99 [facility] Comment on above: Performed By: #### L 100.0100, L500.2500 ####[facility] [address] [place], [address] Potassium [Moles/Vol] 5.6 mmol/L High 3.3-5.1 [facility] Comment on above: Performed By: #### L 100.0100, L500.2500 ####[facility] [address] [place], [address] Sodium [Moles/Vol] 133 mmol/L Normal 133-145 [facility] Comment on above: Performed By: #### L 100.0100, L500.2500 ####[facility] [address] [place], [address] Urea nitrogen [Mass/Vol] 48 mg/dL High 4-19 [facility] Comment on above: Performed By: #### L 100.0100, L500.2500 ####[facility] [address] [place], [address] Basophil percentageOrdered B y: Jose J Winston on 06-28-2024 Basophils/100 WBC (Bld) 0.1 % 0-1 [facility] CBC W/Diff, Automatedon 06-08 Absolute Lymph 0.97 X10 3/uL Normal 0.83-4.51 [facility] Comment on above: Performed By: #### L 100.0100, L500.2500 ####[facility] [address] [place], [address] Absolute Neut 6.6 X10 3/uL Normal 2.0-7.7 [facility] Comment on above: Performed By: #### L 100.0100, L500.2500 ####[facility] [address] [place], [address] Basophils/100 WBC (Bld) 0.1 % Normal 0-1 [facility] Comment on above: Performed By: #### L 100.0100, L500.2500 ####[facility] [address] [place], [address] Eosinophils/100 WBC (Bld) 0.0 % Normal 0-5 [facility] Comment on above: Performed By: #### L 100.0100, L500.2500 ####[facility] [address] [place], [address] Erythrocyte distribution width (RBC) [Ratio] 13.6 % Normal 11.6-14.6 [facility] Comment on above: Performed By: #### L 100.0100, L500.2500 ####[facility] [address] [place], [address] Hematocrit (Bld) [Volume fraction] 36.7 % Low 40-54 [facility] Comment on above: Performed By: #### L 100.0100, L500.2500 ####[facility] [address] [place], [address] Hemoglobin (Bld) [Mass/Vol] 12.0 g/dL Low 13.0-16.5 [facility] Comment on above: Performed By: #### L 100.0100, L500.2500 ####[facility] [address] [place], [address] IG% 0.200 Normal 0.0-0.9 [facility] Comment on above: Result Comment: IG% - Immature Granulocytes (promyelocytes, myelocytes andmetamyelocytes) > 1% indicates that a LEFT SHIFT is Present. Performed By: #### L 100.0100, L500.2500 ####[facility] [address] [place], [address] Lymphocytes/100 WBC (Bld) 11.9 % Low 19-41 [facility] Comment on above: Performed By: #### L 100.0100, L500.2500 ####[facility] [address] [place], [address] MCH (RBC) [Entitic mass] 30.5 pg Normal 27.0-32.0 [facility] Comment on above: Performed By: #### L 100.0100, L500.2500 ####[facility] [address] [place], [address] MCHC (RBC) [Mass/Vol] 32.7 g/dL Normal 32-36 [facility] Comment on above: Performed By: #### L 100.0100, L500.2500 ####[facility] [address] [place], [address] MCV (RBC) [Entitic vol] 93.4 fL Normal 80-94 [facility] Comment on above: Performed By: #### L 100.0100, L500.2500 ####[facility] [address] [place], [address] Monocytes/100 WBC (Bld) 7.0 % Normal 0-10 [facility] Comment on above: Performed By: #### L 100.0100, L500.2500 ####[facility] [address] [place], [address] Neutrophils/100 WBC (Bld) 80.8 % High 47-70 [facility] Comment on above: Performed By: #### L 100.0100, L500.2500 ####[facility] [address] [place], [address] Nucleated RBC (Bld) [#/Vol] 0 10*3/uL Normal 0-5 [facility] Comment on above: Performed By: #### L 100.0100, L500.2500 ####[facility] [address] [place], [address] Platelet mean volume (Bld) [Entitic vol] 9.1 fL Normal 6.2-12.0 [facility] Comment on above: Performed By: #### L 100.0100, L500.2500 ####[facility] [address] [place], [address] Platelets (Bld) [#/Vol] 175 10*3/uL Normal 150-450 [facility] Comment on above: Performed By: #### L 100.0100, L500.2500 ####[facility] [address] [place], [address] RBC (Bld) [#/Vol] 3.93 10*6/uL Low 4.6-6.2 [facility] Comment on above: Performed By: #### L 100.0100, L500.2500 ####[facility] [address] [place], [address] RDW SD 46.7 fl High 35.1-43.9 [facility] Comment on above: Performed By: #### L 100.0100, L500.2500 ####[facility] [address] [place], [address] WBC (Bld) [#/Vol] 8.1 10*3/uL Normal 4.4-11.0 [facility] Comment on above: Performed By: #### L 100.0100, L500.2500 ####[facility] [address] [place], [address] Carbon dioxide, total [Moles /volume] in Central venous bloodOrdered By: Jose J Winston on 06-28-2024 CO2 [Moles/Vol] 20.1 mmol/L Low 21.0-32.0 [facility] Chloride assayOrdered By: Kelly Winston on 06-28-2024 Chloride [Moles/Vol] 102 mmol/L 98-108 [facility] Eosinophil percentageOrdered By: Jose J Winston on 06-28-2024 Eosinophils/100 WBC (Bld) 0.0 % 0-5 [facility] Erythrocyte distribution wid th ratioOrdered By: Jose J Winston on 06-28-2024 Erythrocyte distribution width (RBC) [Ratio] 13.6 % 11.6-14.6 [facility] Erythrocyte distribution wid th standard deviationOrdered By: Jose J Winston on 06-28-2024 Erythrocyte distribution width (RBC) [Ratio] 46.7 fl High 35.1-43.9 [facility] Glomerular filtration rate ( GFR) estimation/1.73 sq m using serum, plasma, or whole bOrdered By: Jose J Winston on 06-28-2024 GFR/1.73 sq M.predicted among non-blacks MDRD (S/P/Bld) [Vol rate/Area] 22 mL/min/{1.73_m2} Low >60 [facility] Comment on above: mL/min/1.73m2 CKD-EP I Creatinine Equation (2020) Hematocrit Auto (Bld) [Volum e fraction]Ordered By: Jose J Winston on 06-28-2024 Hematocrit (Bld) [Volume fraction] 36.7 % Low 40-54 [facility] Hemoglobin measurementOrdere d By: Jose J Winston on 06-28-2024 Hemoglobin (Bld) [Mass/Vol] 12.0 g/dL Low 13.0-16.5 [facility] Immature granulocytes/100 WB C Auto (Bld)Ordered By: Jose J Winston on 06-28-2024 Immature granulocytes/100 WBC (Bld) 0.200 % 0.0-0.9 [facility] Comment on above: IG% - Immature Granu locytes (promyelocytes, myelocytes and metamyelocytes) > 1% indicates that a LEFT SHIFT is Present. MCV (mean corpuscular volume ) determinationOrdered By: Jose J Winston on 06-28-2024 MCV (RBC) [Entitic vol] 93.4 fL 80-94 [facility] Mean corpuscular hemoglobin (MCH) determinationOrdered By: Jose J Winston on 06-28-2024 MCH (RBC) [Entitic mass] 30.5 pg 27.0-32.0 [facility] Mean corpuscular hemoglobin concentration (MCHC) determinationOrdered By: Jose J Winston 06-28-2024 MCHC (RBC) [Mass/Vol] 32.7 g/dL 32-36 [facility] Mean platelet volume determi nationOrdered By: Jose J Winston 06-28-2024 Platelet mean volume (Bld) [Entitic vol] 9.1 fL 6.2-12.0 [facility] Monocyte percentageOrdered B y: Jose J Winston on 06-28-2024 Monocytes/100 WBC (Bld) 7.0 % 0-10 [facility] Neutrophil percentageOrdered By: Jose J Winston on 06-28-2024 Neutrophils/100 WBC (Bld) 80.8 % High 47-70 [facility] Nucleated red blood cell per centageOrdered By: Jose J Winston on 06-28-2024 Nucleated RBC/100 WBC (Bld) [Ratio] 0 % 0-5 [facility] Platelet countOrdered By: Kelly Winston on 06-28-2024 Platelets (Bld) [#/Vol] 175 10*3/uL 150-450 [facility] Potassiumon 06-28-2024 Potassium [Moles/Vol] 5.0 mmol/L Normal 3.3-5.1 [facility] Comment on above: Performed By: #### L 501.5600 ####[facility] [address] [place], [place], [address] Potassium measurement (mass/ volume)Ordered By: Jose J Winston on 06-28-2024 Potassium (Unsp spec) [Mass/Vol] 5.0 mmol/L 3.3-5.1 [facility] RBC Auto (Bld) [#/Vol]Ordere d By: Jose J Winston on 06-28-2024 RBC (Bld) [#/Vol] 3.93 10*6/uL Low 4.6-6.2 [facility] Serum creatinine measurement (mass/volume)Ordered By: Jose J Winston on 06-28-2024 Creatinine [Mass/Vol] 2.95 mg/dL High 0.70-1.20 [facility] Serum glucose measurement (m ass/volume)Ordered By: Jose J Winston on 06-28-2024 Glucose [Mass/Vol] 132 mg/dL High 70-99 [facility] Serum or plasma calcium jamel urement (mass/volume)Ordered By: Jose J Winston on 06-28-2024 Calcium [Mass/Vol] 8.1 mg/dL 7.6-11.0 [facility] Serum or plasma urea nitroge n measurement (mass/volume)Ordered By: Jose J Winston on 06-28-2024 Urea nitrogen [Mass/Vol] 48 mg/dL High 4-19 [facility] Sodium levelOrdered By: Jose Jalycia Winston on 06-28-2024 Sodium [Moles/Vol] 133 mmol/L 133-145 [facility] White blood cell (WBC) count Ordered By: Jose J Catrachito on 06-28-2024 WBC (Bld) [#/Vol] 8.1 10*3/uL 4.4-11.0 [facility] Discharge Instructionon 06-08 Discharge Instruction Normal [facility] Immunohistochemical Stainson 06-27-2024 Immunohistochemical Stains Normal [facility] Comment on above: Performed By: #### P IMHI ####[facility] [address] [place], [place], [address] MR/POSTOP.ANEon 06-27-2024 MR/POSTOP.ANE Normal [facility] MR/YOECLAAT5va 06-27-2024 MR/POSTOPAN2 Normal [facility] Operative Reporton Operative Report Normal [facility] MR/PAT.ANEon 06-25-2024 MR/PAT.ANE Normal [facility] Urine Cultureon 06-22-2024 URC Culture exhibits no growth. Normal [facility] Comment on above: Performed By: #### M 100.2200 ####[facility] [address] [place], [place], [address] Abdomen/Pelvis WITH Contrast on 06-21-2024 Abdomen/Pelvis WITH Contrast Normal [facility] CREATININE FINGERSTICKon Creatinine [Mass/Vol] 1.8 mg/dL High 0.70-1.30 [facility] Comment on above: Performed By: #### L 9100.0200 ####[facility] [address] [place], [place], [address] GFR/1.73 sq M.predicted among non-blacks MDRD (S/P/Bld) [Vol rate/Area] 39.0000 mL/min/{1.73_m2} Low >60 [facility] Comment on above: Performed By: #### L 9100.0200 ####[facility] [address] [place], [address] Creatinine measurement at dsideOrdered By: Jose J Winston on 06-21-2024 Creatinine [Mass/Vol] 1.8 mg/dL High 0.70-1.30 [facility] EGFROrdered By: Jose J Winston on 06-21-2024 GFR/1.73 sq M.predicted among non-blacks MDRD (S/P/Bld) [Vol rate/Area] 39.0000 mL/min/{1.73_m2} Low >60 [facility] Urine cultureOrdered By: Casimiro Winston on 06-21-2024 Bacteria identified Cx Nom (U) Culture exhibits no growth. [facility] 12 Lead EKG performed by [facility] on 06-19-2024 12 Lead EKG performed by [facility] Normal [facility] 12 lead electrocardiography reportOrdered By: Nito Rosales on 06-19-2024 EKG study [facility] [address] [place] [address] 12 Lead EKG performed by [facility] 06/19/24 0614 MR#: [id number] Acct: [id number] Name: ABELARDO IVORY Rep #:[id number] : 1950 74 From: Nito ACUNA Attending Dr: KALPANA Awad atus: PRE AMB Ordering Dr: Nito Rosales Date: 06/19/24 Location: [facility] Sex: M C Admitted: BMS/12 Lead EKG performed by [facility] ECG Report Interpretation ---Sinus Bradycardia WITHIN NORMAL LIMITSElectronically signed on 06/19/2024 at 08:20 by Raheem Farrar Software Version [id number] 06/19/24 0821 Date _ Nito ACUNA CC: Dr. Padmini Carrasco MD ~ Date Dictated: 06/19/24613 Date Transcribed: 06/19/24613 [employer] He[employer] Tap: FREDDIE Signed [place] [employer] Work Phone: Cardiology Visit Reporton Cardiology Visit Report Normal [facility] MR/PAT.ANEon 06-13-2024 MR/PAT.ANE Normal [facility] Cytology report of Body flui d Cyto stainOrdered By: Jose J Winston on 05-28-2024 Cytology report Cyto stain Doc (Body fld) SEE PATHOLOGY REPORT [facility] Comment on above: Specimen submitted t o Anatomical Pathology Department for testing. Cytology, Body Fluid / CSFon 05-28-2024 CYTOLOGY,BF/CSF SEE PATHOLOGY REPORT [facility] Comment on above: Order Comment: URINE Result Comment: Spec imen submitted to Anatomical Pathology Department fortesting. Performed By: #### L 350.1000 ####[facility] [address] [place], [address] Pap Stain (control)on 2024 Pap Stain (control) Normal [facility] Comment on above: Performed By: #### P PAPS ####[facility] [address] [place], [address] Urine Cultureon 05-18-2024 URC Below infection leve l. 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, [address] Emergency Department Summary on 05-17-2024 Emergency Department Summary Normal [facility] Abdomen/Pelvis without Conto n 05-16-2024 Abdomen/Pelvis without Cont Normal [facility] Absolute lymphocyte countOrd ered By: Jeffery Turpin on 05-16-2024 Lymphocytes Auto (Unsp spec) [#/Vol] 1.76 10*3/uL 0.83-4.51 [facility] Absolute neutrophil countOrd ered By: Jeffery Turpin on 05-16-2024 Neutrophils (Bld) [#/Vol] 4.7 10*3/uL 2.0-7.7 [facility] Anion gap in Serum or Plasma Ordered By: Jeffery Turpin on 05-16-2024 Anion gap [Moles/Vol] 14 mmol/L 5-15 [facility] Automated lymphocyte count a s percentage of total leukocytesOrdered By: Jeffery Turpni on 05-16-2024 Lymphocytes/100 WBC Auto (Unsp spec) 24.2 % 19-41 [facility] BUN/creatinine ratioOrdered By: Jeffery Turpin on 05-16-2024 Urea nitrogen/Creatinine [Mass ratio] 20.9 mg/mg High 10- [facility] Basic Metabolic Profile (BMP )on 05-16-2024 BUN/CRE 20.9 RATIO High 10- [facility] Comment on above: Performed By: #### L 100.0100, L500.2500 ####[facility] [address] [place], [address] Calcium [Mass/Vol] 9.1 mg/dL Normal 7.6-11.0 [facility] Comment on above: Performed By: #### L 100.0100, L500.2500 ####[facility] [address] [place], [address] Chloride [Moles/Vol] 102 mmol/L Normal 98-108 [facility] Comment on above: Performed By: #### L 100.0100, L500.2500 ####[facility] [address] [place], [address] CO2 [Moles/Vol] 20.7 mmol/L Low 21.0-32.0 [facility] Comment on above: Performed By: #### L 100.0100, L500.2500 ####[facility] [address] [place], [address] Creatinine [Mass/Vol] 1.47 mg/dL High 0.70-1.20 [facility] Comment on above: Performed By: #### L 100.0100, L500.2500 ####[facility] [address] [place], [address] ECRCL 39.78 ml/min Low 50-250 [facility] Comment on above: Performed By: #### L 100.0100, L500.2500 ####[facility] [address] [place], [address] GAP 14 Normal 5-15 [facility] Comment on above: Performed By: #### L 100.0100, L500.2500 ####[facility] [address] [place], [address] GFR/1.73 sq M.predicted among non-blacks MDRD (S/P/Bld) [Vol rate/Area] 50 mL/min/{1.73_m2} Low >60 [facility] Comment on above: Result Comment: mL/m in/1.73m2 CKD-EPI Creatinine Equation (2020) Performed By: #### L 100.0100, L500.2500 ####[facility] [address] [place], [address] Glucose [Mass/Vol] 145 mg/dL High 70-99 [facility] Comment on above: Performed By: #### L 100.0100, L500.2500 ####[facility] [address] [place], [address] Potassium [Moles/Vol] 4.5 mmol/L Normal 3.3-5.1 [facility] Comment on above: Performed By: #### L 100.0100, L500.2500 ####[facility] [address] [place], [address] Sodium [Moles/Vol] 136 mmol/L Normal 133-145 [facility] Comment on above: Performed By: #### L 100.0100, L500.2500 ####[facility] [address] [place], [address] Urea nitrogen [Mass/Vol] 31 mg/dL High 4-19 [facility] Comment on above: Performed By: #### L 100.0100, L500.2500 ####[facility] [address] [place], [address] Basophil percentageOrdered B y: Jeffery Turpin on 05-16-2024 Basophils/100 WBC (Bld) 0.6 % 0-1 [facility] Bilirubin Test strip Ql (U)O rdered By: Jeffery Turpin on 05-16-2024 Bilirubin Ql (U) Negative Negative [facility] CBC W/Diff, Automatedon - Absolute Lymph 1.76 X10 3/uL Normal 0.83-4.51 [facility] Comment on above: Performed By: #### L 100.0100, L500.2500 ####[facility] [address] [place], [address] Absolute Neut 4.7 X10 3/uL Normal 2.0-7.7 [facility] Comment on above: Performed By: #### L 100.0100, L500.2500 ####[facility] [address] [place], [address] Basophils/100 WBC (Bld) 0.6 % Normal 0-1 [facility] Comment on above: Performed By: #### L 100.0100, L500.2500 ####[facility] [address] [place], [address] Eosinophils/100 WBC (Bld) 2.2 % Normal 0-5 [facility] Comment on above: Performed By: #### L 100.0100, L500.2500 ####[facility] [address] [place], [address] Erythrocyte distribution width (RBC) [Ratio] 12.8 % Normal 11.6-14.6 [facility] Comment on above: Performed By: #### L 100.0100, L500.2500 ####[facility] [address] [place], [address] Hematocrit (Bld) [Volume fraction] 42.7 % Normal 40-54 [facility] Comment on above: Performed By: #### L 100.0100, L500.2500 ####[facility] [address] [place], [address] Hemoglobin (Bld) [Mass/Vol] 14.1 g/dL Normal 13.0-16.5 [facility] Comment on above: Performed By: #### L 100.0100, L500.2500 ####[facility] [address] [place], [address] IG% 0.300 Normal 0.0-0.9 [facility] Comment on above: Result Comment: IG% - Immature Granulocytes (promyelocytes, myelocytes andmetamyelocytes) > 1% indicates that a LEFT SHIFT is Present. Performed By: #### L 100.0100, L500.2500 ####[facility] [address] [place], [address] Lymphocytes/100 WBC (Bld) 24.2 % Normal 19-41 [facility] Comment on above: Performed By: #### L 100.0100, L500.2500 ####[facility] [address] [place], [address] MCH (RBC) [Entitic mass] 30.4 pg Normal 27.0-32.0 [facility] Comment on above: Performed By: #### L 100.0100, L500.2500 ####[facility] [address] [place], [address] MCHC (RBC) [Mass/Vol] 33.0 g/dL Normal 32-36 [facility] Comment on above: Performed By: #### L 100.0100, L500.2500 ####[facility] [address] [place], [address] MCV (RBC) [Entitic vol] 92.0 fL Normal 80-94 [facility] Comment on above: Performed By: #### L 100.0100, L500.2500 ####[facility] [address] [place], [address] Monocytes/100 WBC (Bld) 8.1 % Normal 0-10 [facility] Comment on above: Performed By: #### L 100.0100, L500.2500 ####[facility] [address] [place], [address] Neutrophils/100 WBC (Bld) 64.6 % Normal 47-70 [facility] Comment on above: Performed By: #### L 100.0100, L500.2500 ####[facility] [address] [place], [address] Nucleated RBC (Bld) [#/Vol] 0 10*3/uL Normal 0-5 [facility] Comment on above: Performed By: #### L 100.0100, L500.2500 ####[facility] [address] [place], [address] Platelet mean volume (Bld) [Entitic vol] 8.5 fL Normal 6.2-12.0 [facility] Comment on above: Performed By: #### L 100.0100, L500.2500 ####[facility] [address] [place], [address] Platelets (Bld) [#/Vol] 151 10*3/uL Normal 150-450 [facility] Comment on above: Performed By: #### L 100.0100, L500.2500 ####[facility] [address] [place], [address] RBC (Bld) [#/Vol] 4.64 10*6/uL Normal 4.6-6.2 [facility] Comment on above: Performed By: #### L 100.0100, L500.2500 ####[facility] [address] [place], [address] RDW SD 43.4 fl Normal 35.1-43.9 [facility] Comment on above: Performed By: #### L 100.0100, L500.2500 ####[facility] [address] [place], [address] WBC (Bld) [#/Vol] 7.3 10*3/uL Normal 4.4-11.0 [facility] Comment on above: Performed By: #### L 100.0100, L500.2500 ####[facility] [address] [place], [address] Carbon dioxide, total [Moles /volume] in Central venous bloodOrdered By: Jeffery Turpin on 05-16-2024 CO2 [Moles/Vol] 20.7 mmol/L Low 21.0-32.0 [facility] Chloride assayOrdered By: Kelly Turpin on 05-16-2024 Chloride [Moles/Vol] 102 mmol/L 98-108 [facility] Eosinophil percentageOrdered By: Jeffery Turpin on 05-16-2024 Eosinophils/100 WBC (Bld) 2.2 % 0-5 [facility] Epithelial cells.squamous LM Ql (Urine sed)Ordered By: Jeffery Turpin on 05-16-2024 Epithelial cells.squamous LM.HPF (Urine sed) [#/Area] 0 /[HPF] 0-5 [facility] Erythrocyte distribution wid th (RBC) [Ratio]Ordered By: Jeffery Turpin on 05-16-2024 Erythrocyte distribution width (RBC) [Entitic vol] 43.4 fL 35.1-43.9 [facility] Erythrocyte distribution wid th ratioOrdered By: Jeffery Turpin on 05-16-2024 Erythrocyte distribution width (RBC) [Ratio] 12.8 % 11.6-14.6 [facility] Erythrocyte distribution wid th standard deviationOrdered By: Jeffery Turpin on 05-16-2024 Erythrocyte distribution width (RBC) [Ratio] 43.4 fl 35.1-43.9 [facility] Estimation of creatinine dominique aranceOrdered By: Jeffery Turpin on 05-16-2024 Estimated Creatinine Clearance Calc 39.78 ml/min Low 50-250 [facility] GFR/1.73 sq M.predicted kasie g non-blacks MDRD (S/P/Bld) [Vol rate/Area]Ordered By: Jeffery Turpin on 05-16-2024 Estimated GFR (MDRD) Non-Af Amer 50 Low >60 [facility] Comment on above: mL/min/1.73m2 CKD-EP I Creatinine Equation (2020) Glomerular filtration rate ( GFR) estimation/1.73 sq m using serum, plasma, or whole bOrdered By: Jeffery Turpin on 05-16-2024 GFR/1.73 sq M.predicted among non-blacks MDRD (S/P/Bld) [Vol rate/Area] 50 mL/min/{1.73_m2} Low >60 [facility] Comment on above: mL/min/1.73m2 CKD-EP I Creatinine Equation (2020) Glucose Ql (U)Ordered By: Kelly Turpin on 05-16-2024 Urine Glucose (UA) Normal mg/dl Normal [facility] Hematocrit Auto (Bld) [Volum e fraction]Ordered By: Jeffery Turpin on 05-16-2024 Hematocrit (Bld) [Volume fraction] 42.7 % 40-54 [facility] Hemoglobin measurementOrdere d By: Jeffery Turpin on 05-16-2024 Hemoglobin (Bld) [Mass/Vol] 14.1 g/dL 13.0-16.5 [facility] Immature granulocytes/100 WB C Auto (Bld)Ordered By: Jeffery Turpin on 05-16-2024 Immature granulocytes/100 WBC (Bld) 0.300 % 0.0-0.9 [facility] Comment on above: IG% - Immature Granu locytes (promyelocytes, myelocytes and metamyelocytes) > 1% indicates that a LEFT SHIFT is Present. Ketones Test strip Ql (U)Ord ered By: Jeffery Turpin on 05-16-2024 Ketones Ql (U) Negative Negative [facility] Lymphocytes Auto (Unsp spec) [#/Vol]Ordered By: Jeffery Turpin on 05-16-2024 Lymphocytes (Bld) [#/Vol] 1.76 10*3/uL 0.83-4.51 [facility] Lymphocytes/100 WBC Auto (Un sp spec)Ordered By: Jeffery Turpin on 05-16-2024 Lymphocytes/100 WBC (Bld) 24.2 % 19-41 [facility] MCV (mean corpuscular volume ) determinationOrdered By: Jeffery Turpin on 05-16-2024 MCV (RBC) [Entitic vol] 92.0 fL 80-94 [facility] Mean corpuscular hemoglobin (MCH) determinationOrdered By: Jeffery Turpin on 05-16-2024 MCH (RBC) [Entitic mass] 30.4 pg 27.0-32.0 [facility] Mean corpuscular hemoglobin concentration (MCHC) determinationOrdered By: Jeffery Turpin on 05-16-2024 MCHC (RBC) [Mass/Vol] 33.0 g/dL 32-36 [facility] Mean platelet volume determi nationOrdered By: Jeffery Turpin on 05-16-2024 Platelet mean volume (Bld) [Entitic vol] 8.5 fL 6.2-12.0 [facility] Microscopic analysis of urin e for red blood cells (RBC)Ordered By: Jeffery Turpin on 05-16-2024 Microscopic analysis of urine for red blood cells (RBC) > 100 SEEN /hpf 0-5 [facility] Comment on above: Microscopic field is filled. Other elements may be obscured. Urine RBC > 100 SEEN /hpf 0-5 [facility] Comment on above: Microscopic field is filled. Other elements may be obscured. Monocyte percentageOrdered B y: Jeffery Turpin on 05-16-2024 Monocytes/100 WBC (Bld) 8.1 % 0-10 [facility] Mucus LM Ql (Urine sed)Order ed By: Jeffery Turpin on 05-16-2024 Mucus Ql (Urine sed) 0 SEEN /hpf [facility] Neutrophil percentageOrdered By: Jeffery Turpin on 05-16-2024 Neutrophils/100 WBC (Bld) 64.6 % 47-70 [facility] Nitrite Test strip Ql (U)Ord ered By: Jeffery Turpin on 05-16-2024 Nitrite Ql (U) Positive High Negative [facility] Nucleated red blood cell per centageOrdered By: Jeffery Turpin on 05-16-2024 Nucleated RBC/100 WBC (Bld) [Ratio] 0 % 0-5 [facility] Platelet countOrdered By: Kelly Turpin on 05-16-2024 Platelets (Bld) [#/Vol] 151 10*3/uL 150-450 [facility] Potassium (Unsp spec) [Mass/ Vol]Ordered By: Jeffery Turpin on 05-16-2024 Potassium [Moles/Vol] 4.5 mmol/L 3.3-5.1 [facility] Potassium measurement (mass/ volume)Ordered By: Jeffery Turpin on 05-16-2024 Potassium (Unsp spec) [Mass/Vol] 4.5 mmol/L 3.3-5.1 [facility] Protein Test strip Ql (U)Ord ered By: Jeffery Turpin on 05-16-2024 Protein Ql (U) 100 mg/dl High Negative [facility] RBC Auto (Bld) [#/Vol]Ordere d By: Jeffery Turpin on 05-16-2024 RBC (Bld) [#/Vol] 4.64 10*6/uL [facility]6-[facility] casts LM Ql (Urine sed)O rdered By: Jeffery Turpin on 05-16-2024 Urine Red Blood Cell Casts 0-5 SEEN /lpf None Seen [facility] Serum creatinine measurement (mass/volume)Ordered By: Jeffery Turpin on 05-16-2024 Creatinine [Mass/Vol] 1.47 mg/dL High 0.70-1.20 [facility] Serum glucose measurement (m ass/volume)Ordered By: Jeffery Turpin on 05-16-2024 Glucose [Mass/Vol] 145 mg/dL High 70-99 [facility] Serum or plasma calcium jamel urement (mass/volume)Ordered By: Jeffery Turpin on 05-16-2024 Calcium [Mass/Vol] 9.1 mg/dL 7.6-11.0 [facility] Serum or plasma urea nitroge n measurement (mass/volume)Ordered By: Jeffery Turpin on 05-16-2024 Urea nitrogen [Mass/Vol] 31 mg/dL High 4-19 [facility] Sodium levelOrdered By: Domo Turpin on 05-16-2024 Sodium [Moles/Vol] 136 mmol/L 133-145 [facility] Squamous epithelial cells de tection in urine sediment by light microscopyOrdered By: Jeffery Turpin on 05-16-2024 Epithelial cells.squamous LM Ql (Urine sed) 0-5 SEEN /hpf 0-5 [facility] Urinalysis, Completeon 05-16 BACTERIA 1+ /hpf Normal None Seen [facility] Comment on above: Order Comment: COLOR OF URINE MAY AFFECT DIPSTICK RESULTS.CLEAN CATCH Performed By: #### L 400.0001 ####[facility] [address] [place], [address] CAST,RBC 0-5 SEEN Normal None Seen [facility] Comment on above: Order Comment: COLOR OF URINE MAY AFFECT DIPSTICK RESULTS.CLEAN CATCH Performed By: #### L 400.0001 ####[facility] [address] [place], [address] EPI,SQUAMOUS 0-5 SEEN Normal 0-5 [facility] Comment on above: Order Comment: COLOR OF URINE MAY AFFECT DIPSTICK RESULTS.CLEAN CATCH Performed By: #### L 400.0001 ####[facility] [address] [place], [address] RBC > 100 SEEN Normal 0-5 [facility] Comment on above: Order Comment: COLOR OF URINE MAY AFFECT DIPSTICK RESULTS.CLEAN CATCH Result Comment: Micr oscopic field is filled. Other elements may beobscured. Performed By: #### L 400.0001 ####[facility] [address] [place], [address] WBC 10-25 SEEN Normal 0-5 [facility] Comment on above: Order Comment: COLOR OF URINE MAY AFFECT DIPSTICK RESULTS.CLEAN CATCH Performed By: #### L 400.0001 ####[facility] [address] [place], [address] BILIRUBIN URINE Negative Normal Negative [facility] Comment on above: Order Comment: COLOR OF URINE MAY AFFECT DIPSTICK RESULTS.CLEAN CATCH Performed By: #### L 400.0001 ####[facility] [address] [place], [address] Clarity (U) Cloudy Normal Clear [facility] Comment on above: Order Comment: COLOR OF URINE MAY AFFECT DIPSTICK RESULTS.CLEAN CATCH Performed By: #### L 400.0001 ####[facility] [address] [place], [address] Color (U) Red Normal Yellow [facility] Comment on above: Order Comment: COLOR OF URINE MAY AFFECT DIPSTICK RESULTS.CLEAN CATCH Performed By: #### L 400.0001 ####[facility] [address] [place], [address] GLUCOSE, UR Normal Normal Normal [facility] Comment on above: Order Comment: COLOR OF URINE MAY AFFECT DIPSTICK RESULTS.CLEAN CATCH Performed By: #### L 400.0001 ####[facility] [address] [place], [address] KETONE UR Negative Normal Negative [facility] Comment on above: Order Comment: COLOR OF URINE MAY AFFECT DIPSTICK RESULTS.CLEAN CATCH Performed By: #### L 400.0001 ####[facility] [address] [place], [address] LEUK ESTERASE 25 /ul Abnormal Negative [facility] Comment on above: Order Comment: COLOR OF URINE MAY AFFECT DIPSTICK RESULTS.CLEAN CATCH Performed By: #### L 400.0001 ####[facility] [address] [place], [address] Nitrite Ql (U) Positive Abnormal Negative [facility] Comment on above: Order Comment: COLOR OF URINE MAY AFFECT DIPSTICK RESULTS.CLEAN CATCH Performed By: #### L 400.0001 ####[facility] [address] [place], [address] OCCULT BLOOD-UR 250 /ul Abnormal Negative [facility] Comment on above: Order Comment: COLOR OF URINE MAY AFFECT DIPSTICK RESULTS.CLEAN CATCH Performed By: #### L 400.0001 ####[facility] [address] [facility] [address] pH UR 6.0 Normal 5.0 - 8.0 [facility] Comment on above: Order Comment: COLOR OF URINE MAY AFFECT DIPSTICK RESULTS.CLEAN CATCH Performed By: #### L 400.0001 ####[facility] [address] [facility] [address] PROT DIPSTX 100 mg/dl Abnormal Negative [facility] Comment on above: Order Comment: COLOR OF URINE MAY AFFECT DIPSTICK RESULTS.CLEAN CATCH Performed By: #### L 400.0001 ####[facility] [address] [place] [address] SP.GR. DIPSTX 1.020 Normal 1.002-1.030 [facility] Comment on above: Order Comment: COLOR OF URINE MAY AFFECT DIPSTICK RESULTS.CLEAN CATCH Performed By: #### L 400.0001 ####[facility] [address] [facility] [address] UROBILI Normal Normal Normal [facility] Comment on above: Order Comment: COLOR OF URINE MAY AFFECT DIPSTICK RESULTS.CLEAN CATCH Performed By: #### L 400.0001 ####[facility] [address] [place], [address] Mucus Ql (Urine sed) 0 SEEN Normal [facility] Comment on above: Order Comment: COLOR OF URINE MAY AFFECT DIPSTICK RESULTS.CLEAN CATCH Performed By: #### L 400.0001 ####[facility] [address] 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 [facility] Urine glucose detectionOrder ed By: Jeffery Turpin on 05-16-2024 Glucose Ql (U) Normal mg/dl Normal [facility] Urine leukocyte esterase det ection by dipstickOrdered By: Jeffery Turpin on 05-16-2024 Leukocyte esterase Test strip Ql (U) 25 /ul High Negative [facility] Urine pHOrdered By: Jeffery de la torre on 05-16-2024 pH (U) 6.0 [pH] 5.0 - 8.0 [facility] Urine sediment bacteria coun t by microscopy (number/high power field)Ordered By: Jeffery Turpin on 05-16-2024 Bacteria LM.HPF (Urine sed) [#/Area] 1 /[HPF] None Seen [facility] Urine sediment erythrocyte c ast detection by light microscopyOrdered By: Jeffery Turpin on 05-16-2024 RBC casts LM Ql (Urine sed) 0-5 SEEN /lpf None Seen [facility] Urine specific gravity measu rementOrdered By: Jeffery Turpin on 05-16-2024 Specific gravity (U) [Rel density] 1.020 1.002-1.030 [facility] Urine urobilinogen measureme ntOrdered By: Jeffery Turpin on 05-16-2024 Urobilinogen Ql (U) Normal mg/dl Normal [facility] Urobilinogen Ql (U)Ordered B y: Jeffery Turpin on 05-16-2024 Urine Urobilinogen Normal mg/dl Normal [facility] White blood cell (WBC) count Ordered By: Jeffery Turpin on 05-16-2024 WBC (Bld) [#/Vol] 7.3 10*3/uL 4.4-11.0 [facility] White blood cell countOrdere d By: Jeffery Turpin on 05-16-2024 Urine WBC 10-25 SEEN /hpf 0-5 [facility] White blood cell count 10-25 SEEN /hpf 0-5 [facility] Anion gap in Serum or Plasma Ordered By: Padmini Carrasco on 05-10-2024 Anion gap [Moles/Vol] 12 mmol/L 5-15 [facility] BUN/creatinine ratioOrdered By: Padmini Carrasco on 05-10-2024 Urea nitrogen/Creatinine [Mass ratio] 16.8 mg/mg 10-20 [facility] Basic Metabolic Profile (BMP )on 05-10-2024 BUN Normal 4- [facility] Comment on above: Order Comment: Order Date: 06/16/23Order Info: 666- - BMP Result Comment: ADDE D TO 05/10/24 LAB DRAW Performed By: #### L 100.0500, L500.2500 ####[facility] [address] [place], [address] BUN/CRE Normal 10-20 [facility] Comment on above: Order Comment: Order Date: 06/16/23Order Info: 06 - BMP Result Comment: ADDE D TO 05/10/24 LAB DRAW Performed By: #### L 100.0500, L500.2500 ####[facility] [address] [place], [address] Calcium Normal 7.6-11.0 [facility] Comment on above: Order Comment: Order Date: 06/16/23Order Info: 06- - BMP Result Comment: ADDE D TO 05/10/24 LAB DRAW Performed By: #### L 100.0500, L500.2500 ####[facility] [address] [place], [address] CL Normal 98-108 [facility] Comment on above: Order Comment: Order Date: 06/16/23Order Info: 06- - BMP Result Comment: ADDE D TO 05/10/24 LAB DRAW Performed By: #### L 100.0500, L500.2500 ####[facility] [address] [place], [address] CO2 Normal 21.0-32.0 [facility] Comment on above: Order Comment: Order Date: 06/16/23Order Info: 06- - BMP Result Comment: ADDE D TO 05/10/24 LAB DRAW Performed By: #### L 100.0500, L500.2500 ####[facility] [address] [place], [address] CREAT,SERUM Normal 0.70-1.20 [facility] Comment on above: Order Comment: Order Date: 06/16/23Order Info: 666- - BMP Result Comment: ADDE D TO 05/10/24 LAB DRAW Performed By: #### L 100.0500, L500.2500 ####[facility] [address] [place], [address] eGFR Normal >60 [facility] Comment on above: Order Comment: Order Date: 06/16/23Order Info: 666- - BMP Result Comment: ADDE D TO 05/10/24 LAB DRAW Performed By: #### L 100.0500, L500.2500 ####[facility] [address] [place], [address] GAP Normal 5-15 [facility] Comment on above: Order Comment: Order Date: 06/16/23Order Info: 666- - BMP Result Comment: ADDE D TO 05/10/24 LAB DRAW Performed By: #### L 100.0500, L500.2500 ####[facility] [address] [place], [address] GLU Normal 70-99 [facility] Comment on above: Order Comment: Order Date: 06/16/23Order Info: 06- - BMP Result Comment: ADDE D TO 05/10/24 LAB DRAW Performed By: #### L 100.0500, L500.2500 ####[facility] [address] [place], [address] Potassium Normal 3.3-5.1 [facility] Comment on above: Order Comment: Order Date: 06/16/23Order Info: [id number] - BMP Result Comment: ADDE D TO 05/10/24 LAB DRAW Performed By: #### L 100.0500, L500.2500 ####[facility] [address] [place], [address] Basic Metabolic Profile (BMP) Normal 133-145 [facility] Comment on above: Order Comment: Order Date: 06/16/23Order Info: [id number] - BMP Result Comment: ADDE D TO 05/10/24 LAB DRAW Performed By: #### L 100.0500, L500.2500 ####[facility] [address] [place], [address] Bilirubin, totalOrdered By: Padmini Carrasco on 05-10-2024 Bilirubin [Mass/Vol] 0.18 mg/dL 0.00-1.30 [facility] CBC-Complete Blood Cnt No Di ffon 05-10-2024 Erythrocyte distribution width (RBC) [Ratio] 13.2 % Normal 11.6-14.6 [facility] Comment on above: Order Comment: Order Date: 10/12/23Order Info: [id number] - CBC Performed By: #### L 100.0500, L503.6150 ####[facility] [address] [place], [address] Hematocrit (Bld) [Volume fraction] 42.5 % Normal 40-54 [facility] Comment on above: Order Comment: Order Date: 10/12/23Order Info: [id number] - CBC Performed By: #### L 100.0500, L503.6150 ####[facility] [address] [place], [address] Hemoglobin (Bld) [Mass/Vol] 13.6 g/dL Normal 13.0-16.5 [facility] Comment on above: Order Comment: Order Date: 10/12/23Order Info: [id number] - CBC Performed By: #### L 100.0500, L503.6150 ####[facility] [address] [place], [address] MCH (RBC) [Entitic mass] 30.0 pg Normal 27.0-32.0 [facility] Comment on above: Order Comment: Order Date: 10/12/23Order Info: [id number] - CBC Performed By: #### L 100.0500, L503.6150 ####[facility] [address] [place], [address] MCHC (RBC) [Mass/Vol] 32.0 g/dL Normal 32-36 [facility] Comment on above: Order Comment: Order Date: 10/12/23Order Info: [id number] - CBC Performed By: #### L 100.0500, L503.6150 ####[facility] [address] [place], [address] MCV (RBC) [Entitic vol] 93.8 fL Normal 80-94 [facility] Comment on above: Order Comment: Order Date: 10/12/23Order Info: [id number] - CBC Performed By: #### L 100.0500, L503.6150 ####[facility] [address] [place], [address] Platelet mean volume (Bld) [Entitic vol] 9.2 fL Normal 6.2-12.0 [facility] Comment on above: Order Comment: Order Date: 10/12/23Order Info: [id number] - CBC Performed By: #### L 100.0500, L503.6150 ####[facility] [address] [place], [address] Platelets (Bld) [#/Vol] 168 10*3/uL Normal 150-450 [facility] Comment on above: Order Comment: Order Date: 10/12/23Order Info: [id number] - CBC Performed By: #### L 100.0500, L503.6150 ####[facility] [address] [place], [address] RBC (Bld) [#/Vol] 4.53 10*6/uL Low 4.6-6.2 [facility] Comment on above: Order Comment: Order Date: 10/12/23Order Info: [id number] - CBC Performed By: #### L 100.0500, L503.6150 ####[facility] [address] [place], [address] RDW SD 45.1 fl High 35.1-43.9 [facility] Comment on above: Order Comment: Order Date: 10/12/23Order Info: [id number] - CBC Performed By: #### L 100.0500, L503.6150 ####[facility] [address] [place], [address] WBC (Bld) [#/Vol] 6.9 10*3/uL Normal 4.4-11.0 [facility] Comment on above: Order Comment: Order Date: 10/12/23Order Info: [id number] - CBC Performed By: #### L 100.0500, L503.6150 ####[facility] [address] [place], [address] HCT Normal 40-54 [facility] Comment on above: Order Comment: Order Date: 06/16/23Order Info: [id number] - CBC Result Comment: ADDE D TO 05/10/24 LAB DRAW Performed By: #### L 100.0500, L500.2500 ####[facility] [address] [place], [address] HGB Normal 13.0-16.5 [facility] Comment on above: Order Comment: Order Date: 06/16/23Order Info: [id number] - CBC Result Comment: ADDE D TO 05/10/24 LAB DRAW Performed By: #### L 100.0500, L500.2500 ####[facility] [address] [place], [address] MCH Normal 27.0-32.0 [facility] Comment on above: Order Comment: Order Date: 06/16/23Order Info: [id number] - CBC Result Comment: ADDE D TO 05/10/24 LAB DRAW Performed By: #### L 100.0500, L500.2500 ####[facility] [address] [place], [address] MCHC Normal 32-36 [facility] Comment on above: Order Comment: Order Date: 06/16/23Order Info: [id number] - CBC Result Comment: ADDE D TO 05/10/24 LAB DRAW Performed By: #### L 100.0500, L500.2500 ####[facility] [address] [place], [address] MCV Normal 80-94 [facility] Comment on above: Order Comment: Order Date: 06/16/23Order Info: [id number] - CBC Result Comment: ADDE D TO 05/10/24 LAB DRAW Performed By: #### L 100.0500, L500.2500 ####[facility] [address] [place], [address] PLT Normal 150-450 [facility] Comment on above: Order Comment: Order Date: 06/16/23Order Info: [id number] - CBC Result Comment: ADDE D TO 05/10/24 LAB DRAW Performed By: #### L 100.0500, L500.2500 ####[facility] [address] [place], [address] RBC Normal 4.6-6.2 [facility] Comment on above: Order Comment: Order Date: 06/16/23Order Info: [id number] - CBC Result Comment: ADDE D TO 05/10/24 LAB DRAW Performed By: #### L 100.0500, L500.2500 ####[facility] [address] [place], [address] RDW CV Normal 11.6-14.6 [facility] Comment on above: Order Comment: Order Date: 06/16/23Order Info: [id number] - CBC Result Comment: ADDE D TO 05/10/24 LAB DRAW Performed By: #### L 100.0500, L500.2500 ####[facility] [address] [place], [address] RDW SD Normal 35.1-43.9 [facility] Comment on above: Order Comment: Order Date: 06/16/23Order Info: [id number] - CBC Result Comment: ADDE D TO 05/10/24 LAB DRAW Performed By: #### L 100.0500, L500.2500 ####[facility] [address] [place], [address] WBC Normal 4.4-11.0 [facility] Comment on above: Order Comment: Order Date: 06/16/23Order Info: [id number] - CBC Result Comment: ADDE D TO 05/10/24 LAB DRAW Performed By: #### L 100.0500, L500.2500 ####[facility] [address] [place], [address] Calculated very low density lipoprotein (VLDL) cholesterol measurementOrdered By: Padmini Carrasco on 05-10-2024 Calculated very low density lipoprotein (VLDL) cholesterol measurement 31 mg/dL 5-40 [facility] VLDL Cholesterol 31 mg/dL 5-40 [facility] Carbon dioxide, total [Moles /volume] in Central venous bloodOrdered By: Padmini Carrasco on 05-10-2024 CO2 [Moles/Vol] 22.7 mmol/L 21.0-32.0 [facility] Chloride assayOrdered By: Rambo Carrasco on 05-10-2024 Chloride [Moles/Vol] 104 mmol/L 98-108 [facility] Comprehensive Metabolic Prof ilon 05-10-2024 Albumin [Mass/Vol] 3.9 g/dL Normal 3.4-4.8 [facility] Comment on above: Order Comment: Order Date: 10/12/23Order Info: [id number] - CMPOrder Info: [id number] - LIPIDOrder Info: [id number] - TSHOrder Info: [id number] - PSAOrder Info: [id number] - FE Performed By: #### L 501.9520, L500.4050, L500.4100 ####[facility] [address] [place], [address] Albumin/Globulin [Mass ratio] 1.4 {ratio} Normal 0.9-2.4 [facility] Comment on above: Order Comment: Order Date: 10/12/23Order Info: [id number] - CMPOrder Info: [id number] - LIPIDOrder Info: [id number] - TSHOrder Info: [id number] - PSAOrder Info: [id number] - FE Performed By: #### L 501.9520, L500.4050, L500.4100 ####[facility] [address] [place], [address] ALK PHOS 73 U/L Normal 40-129 [facility] Comment on above: Order Comment: Order Date: 10/12/23Order Info: [id number] - CMPOrder Info: [id number] - LIPIDOrder Info: [id number] - TSHOrder Info: [id number] - PSAOrder Info: [id number] - FE Performed By: #### L 501.9520, L500.4050, L500.4100 ####[facility] [address] [place], [address] ALT [Catalytic activity/Vol] 6 U/L Normal <=46 [facility] Comment on above: Order Comment: Order Date: 10/12/23Order Info: [id number] - CMPOrder Info: [id number] - LIPIDOrder Info: [id number] - TSHOrder Info: [id number] - PSAOrder Info: [id number] - FE Performed By: #### L 501.9520, L500.4050, L500.4100 ####[facility] [address] [place], [address] AST [Catalytic activity/Vol] 16 U/L Normal <=37 [facility] Comment on above: Order Comment: Order Date: 10/12/23Order Info: [id number] - CMPOrder Info: [id number] - LIPIDOrder Info: [id number] - TSHOrder Info: [id number] - PSAOrder Info: [id number] - FE Performed By: #### L 501.9520, L500.4050, L500.4100 ####[facility] [address] [place], [address] Bilirubin [Mass/Vol] 0.18 mg/dL Normal 0.00-1.30 [facility] Comment on above: Order Comment: Order Date: 10/12/23Order Info: [id number] - CMPOrder Info: [id number] - LIPIDOrder Info: [id number] - TSHOrder Info: [id number] - PSAOrder Info: [id number] - FE Performed By: #### L 501.9520, L500.4050, L500.4100 ####[facility] [address] [place], [address] BUN/CRE 16.8 RATIO Normal 10-20 [facility] Comment on above: Order Comment: Order Date: 10/12/23Order Info: [id number] - CMPOrder Info: [id number] - LIPIDOrder Info: [id number] - TSHOrder Info: [id number] - PSAOrder Info: [id number] - FE Performed By: #### L 501.9520, L500.4050, L500.4100 ####[facility] [address] [place], [address] Calcium [Mass/Vol] 9.0 mg/dL Normal 7.6-11.0 [facility] Comment on above: Order Comment: Order Date: 10/12/23Order Info: [id number] - CMPOrder Info: [id number] - LIPIDOrder Info: [id number] - TSHOrder Info: [id number] - PSAOrder Info: [id number] - FE Performed By: #### L 501.9520, L500.4050, L500.4100 ####[facility] [address] [place], [address] Chloride [Moles/Vol] 104 mmol/L Normal 98-108 [facility] Comment on above: Order Comment: Order Date: 10/12/23Order Info: [id number] - CMPOrder Info: [id number] - LIPIDOrder Info: [id number] - TSHOrder Info: [id number] - PSAOrder Info: [id number] - FE Performed By: #### L 501.9520, L500.4050, L500.4100 ####[facility] [address] [place], [address] CO2 [Moles/Vol] 22.7 mmol/L Normal 21.0-32.0 [facility] Comment on above: Order Comment: Order Date: 10/12/23Order Info: [id number] - CMPOrder Info: [id number] - LIPIDOrder Info: [id number] - TSHOrder Info: 1 - PSAOrder Info: [id number] - FE Performed By: #### L 501.9520, [id number], L500.4100 ####[facility] [address] [place], [address] Creatinine [Mass/Vol] 1.64 mg/dL High 0.70-1.20 [facility] Comment on above: Order Comment: Order Date: 10/12/23Order Info: [id number] - CMPOrder Info: [id number] - LIPIDOrder Info: 6-3 - TSHOrder Info: [id number] - PSAOrder Info: [id number] - FE Performed By: #### L 501.9520, [id number], L500.4100 ####[facility] [address] [place], [address] GAP 12 Normal 5-15 [facility] Comment on above: Order Comment: Order Date: 10/12/23Order Info: [id number] - CMPOrder Info: [id number] - LIPIDOrder Info: [id number] - TSHOrder Info: [id number] - PSAOrder Info: [id number] - FE Performed By: #### L 501.9520, [id number], L500.4100 ####[facility] [address] [place], [address] GFR/1.73 sq M.predicted among non-blacks MDRD (S/P/Bld) [Vol rate/Area] 44 mL/min/{1.73_m2} Low >60 [facility] Comment on above: Order Comment: Order Date: 10/12/23Order Info: 86-1 - CMPOrder Info: [id number] - LIPIDOrder Info: [id number] - TSHOrder Info: [id number] - PSAOrder Info: [id number] - FE Result Comment: mL/m in/1.73m2 CKD-EPI Creatinine Equation (2020) Performed By: #### L [id number], [id number], L500.4100 ####[facility] [address] [place], [address] Globulin (S) [Mass/Vol] 2.8 g/dL Normal 2.2-4.2 [facility] Comment on above: Order Comment: Order Date: 10/12/23Order Info: [id number] - CMPOrder Info: [id number] - LIPIDOrder Info: [id number] - TSHOrder Info: [id number] - PSAOrder Info: [id number] - FE Performed By: #### L [id number], [id number], L500.4100 ####[facility] [address] [place], [address] Glucose [Mass/Vol] 163 mg/dL High 70-99 [facility] Comment on above: Order Comment: Order Date: 10/12/23Order Info: [id number] - CMPOrder Info: [id number] - LIPIDOrder Info: [id number] - TSHOrder Info: 7-1 - PSAOrder Info: [id number] - FE Performed By: #### L 501.9520, [id number], L500.4100 ####[facility] [address] [place], [address] Potassium [Moles/Vol] 4.8 mmol/L Normal 3.3-5.1 [facility] Comment on above: Order Comment: Order Date: 10/12/23Order Info: [id number] - CMPOrder Info: [id number] - LIPIDOrder Info: [id number] - TSHOrder Info: [id number] - PSAOrder Info: 4 - FE Performed By: #### L [id number], [id number], L500.4100 ####[facility] [address] [place], [address] Sodium [Moles/Vol] 138 mmol/L Normal 133-145 [facility] Comment on above: Order Comment: Order Date: 10/12/23Order Info: 86-1 - CMPOrder Info: [id number] - LIPIDOrder Info: 6-3 - TSHOrder Info: [id number] - PSAOrder Info: [id number] - FE Performed By: #### L 501.9520, [id number], L500.4100 ####[facility] [address] [place], [address] T PROT 6.7 g/dL Normal 5.9-8.4 [facility] Comment on above: Order Comment: Order Date: 10/12/23Order Info: [id number] - CMPOrder Info: [id number] - LIPIDOrder Info: 6-3 - TSHOrder Info: 285-1 - PSAOrder Info: [id number] - FE Performed By: #### L [id number], [id number], L500.4100 ####[facility] [address] [place], [place], [id number] Urea nitrogen [Mass/Vol] 28 mg/dL High 4-19 [facility] Comment on above: Order Comment: Order Date: 10/12/23Order Info: [id number] - CMPOrder Info: [id number] - LIPIDOrder Info: [id number] - TSHOrder Info: [id number] - PSAOrder Info: [id number] - FE Performed By: #### L [id number], [id number], L500.4100 ####[facility] [address] [place], [place], [id number] Erythrocyte distribution wid th (RBC) [Ratio]Ordered By: Padmini Carrasco on 05-10-2024 Erythrocyte distribution width (RBC) [Entitic vol] 45.1 fL High 35.1-43.9 [facility] Erythrocyte distribution wid th ratioOrdered By: Padmini Carrasco on 05-10-2024 Erythrocyte distribution width (RBC) [Ratio] 13.2 % 11.6-14.6 [facility] Erythrocyte distribution wid th standard deviationOrdered By: Padmini Carrasco on 05-10-2024 Erythrocyte distribution width (RBC) [Ratio] 45.1 fl High 35.1-43.9 [facility] GFR/1.73 sq M.predicted kasie g non-blacks MDRD (S/P/Bld) [Vol rate/Area]Ordered By: Padmini Carrasco on 05-10-2024 Estimated GFR (MDRD) Non-Af Amer 44 Low >60 [facility] Comment on above: mL/min/1.73m2 CKD-EP I Creatinine Equation (2020) Glomerular filtration rate ( GFR) estimation/1.73 sq m using serum, plasma, or whole bOrdered By: Padmini Carrasco on 05-10-2024 GFR/1.73 sq M.predicted among non-blacks MDRD (S/P/Bld) [Vol rate/Area] 44 mL/min/{1.73_m2} Low >60 [facility] Comment on above: mL/min/1.73m2 CKD-EP I Creatinine Equation (2020) Hematocrit Auto (Bld) [Volum e fraction]Ordered By: Padmini Carrasco on 05-10-2024 Hematocrit (Bld) [Volume fraction] 42.5 % 40-54 [facility] Hemoglobin measurementOrdere d By: Padmini Carrasco on 05-10-2024 Hemoglobin (Bld) [Mass/Vol] 13.6 g/dL 13.0-16.5 [facility] Ironon 05-10-2024 Iron [Mass/Vol] 57 ug/dL Low 65-175 [facility] Comment on above: Order Comment: Order Date: 10/12/23Order Info: [id number] - CMPOrder Info: [id number] - LIPIDOrder Info: [id number] - TSHOrder Info: [id number] - PSAOrder Info: [id number] - FE Performed By: #### L 100.0500, L503.6150 ####[facility] [address] [place], [address] Iron (Unsp spec) [Mass/Mass] Ordered By: Padmini Carrasco on 05-10-2024 Iron [Mass/Vol] 57 ug/dL Low 65-175 [facility] Iron measurement (mass/mass) Ordered By: Padmini Carrasco on 05-10-2024 Iron (Unsp spec) [Mass/Mass] 57 ug/dL Low 65-175 [facility] LDL calc ser/plasOrdered By: Padmini Carrasco on 05-10-2024 Cholesterol in LDL [Mass/Vol] 63 mg/dL [facility] Comment on above: Wlnulbhwzf=509-636 m g/dL & Higher Djau=053 mg/dL or greater LDL Cholesterol, Calculated 63 mg/dL [facility] Comment on above: Dpanjrxfty=372-117 m g/dL & Higher Xggr=241 mg/dL or greater Laboratory - Chemistry and C hemistry - challengeOrdered By: Padmini Carrasco on 05-10-2024 AST [Catalytic activity/Vol] 16 U/L <38 [facility] Lipid Profileon 05-10-2024 CHOL:HDL 2.86 Normal [facility] Comment on above: Order Comment: Order Date: 10/12/23Order Info: [id number] - CMPOrder Info: [id number] - LIPIDOrder Info: 3 - TSHOrder Info: [id number] - PSAOrder Info: [id number] Performed By: #### L 501.9520, [id number], L500.4100 ####[facility] [address] [place], [address] Cholesterol [Mass/Vol] 144 mg/dL Normal <=200 [facility] Comment on above: Order Comment: Order Date: 10/12/23Order Info: [id number] - CMPOrder Info: [id number] - LIPIDOrder Info: [id number] - TSHOrder Info: [id number] - PSAOrder Info: [id number] Result Comment: Chol esterol level, Desirable <200 mg/dLBorderline high cholesterol 200-239 mg/dLHigh cholesterol >=240 mg/dLRecommendations of the NCEP Adult Treatment Panel for thefollowing risk-cutoff thresholds for the [place] [facility]. Performed By: #### L 501.9520, [id number], L500.4100 ####[facility] [address] [place], [address] Cholesterol in HDL [Mass/Vol] 50 mg/dL Normal [facility] Comment on above: Order Comment: Order Date: 10/12/23Order Info: [id number] - CMPOrder Info: [id number] - LIPIDOrder Info: [id number] - TSHOrder Info: [id number] - PSAOrder Info: [id number] Result Comment: Kaci onal Cholesterol Education Program (NCEP) guidelines:<40 mg/dL: Low HDL-cholesterol (major risk factor for CHD)>= 60 mg/dL: High HDL-cholesterol (negative risk factor forCHD)HDL-cholesterol is affected by a number of factors, e.g.smoking, exercise, hormones, sex and age. Performed By: #### L 501.9520, [id number], L500.4100 ####[facility] [address] [place], [address] Cholesterol in LDL [Mass/Vol] 63 mg/dL Normal [facility] Comment on above: Order Comment: Order Date: 10/12/23Order Info: [id number] - CMPOrder Info: [id number] - LIPIDOrder Info: 6-3 - TSHOrder Info: 1 - PSAOrder Info: [id number] Result Comment: Bord ixzopx=247-783 mg/dL Higher Mcgm=351 mg/dL or greater Performed By: #### L 501.9520, [id number], L500.4100 ####[facility] [address] [place], [address] Cholesterol in VLDL [Mass/Vol] 31 mg/dL Normal 5-40 [facility] Comment on above: Order Comment: Order Date: 10/12/23Order Info: [id number] - CMPOrder Info: [id number] - LIPIDOrder Info: 63 - TSHOrder Info: 1 - PSAOrder Info: [id number] - Performed By: #### L [id number], [id number], L500.4100 ####[facility] [address] [place], [address] Triglyceride [Mass/Vol] 155 mg/dL Normal [facility] Comment on above: Order Comment: Order Date: 10/12/23Order Info: [id number] - CMPOrder Info: [id number] - LIPIDOrder Info: 63 - TSHOrder Info: 1 - PSAOrder Info: [id number] - Result Comment: The drugs N-Acetylcysteine and Metamizole may falselydepress this assay.Normal range: <150 mg/dLBorderline High: 150-199 mg/dLHigh: 200-499 mg/dLVery High: >500 mg/dL Performed By: #### L [id number], [id number], L500.4100 ####[facility] [address] [place], [address] MCV (mean corpuscular volume ) determinationOrdered By: Padmini Carrasco on 05-10-2024 MCV (RBC) [Entitic vol] 93.8 fL 80-94 [facility] Mean corpuscular hemoglobin (MCH) determinationOrdered By: Padmini Carrasco on 05-10-2024 MCH (RBC) [Entitic mass] 30.0 pg 27.0-32.0 [facility] Mean corpuscular hemoglobin concentration (MCHC) determinationOrdered By: Padmini Carrasco on 05-10-2024 MCHC (RBC) [Mass/Vol] 32.0 g/dL 32-36 [facility] Mean platelet volume determi nationOrdered By: Padmini Carrasco on 05-10-2024 Platelet mean volume (Bld) [Entitic vol] 9.2 fL 6.2-12.0 [facility] PSA, total screeningOrdered By: Padmini Carrasco on 05-10-2024 Prostate Specific Antigen Screen 0.49 ng/mL 0.02-4.00 [facility] Comment on above: This test was perfor med using the [employer] tPSA method. Measured values of a patient sample can vary depending on the testing procedure used. PSA values determined on patient samples by different testing procedures cannot be used interchangeably. If there is a change in PSA assays while monitoring therapy, sequential testing should be performed to confirm baseline values. PSA,Total - Annual Screenon 05-10-2024 PSA,TOT SCREEN 0.49 ng/mL Normal 0.02-4.00 [facility] Comment on above: Order Comment: Order Date: 10/12/23Order Info: [id number] - CMPOrder Info: [id number] - LIPIDOrder Info: [id number] - TSHOrder Info: [id number] - PSAOrder Info: [id number] - FE Result Comment: This test was performed using the [employer] tPSAmethod. Measured values of a patient??sample can varydepending on the testing procedure used. PSA valuesdetermined on patient samples by different testingprocedures cannot be used interchangeably. If there is achange in PSA assays while monitoring therapy, sequentialtesting should be performed to confirm baseline values. Performed By: #### L 501.9910 ####[facility] [address] [place], [address] PTH intactOrdered By: Horacio Carrasco on 05-10-2024 Parathyroid Hormone (Intact) 74 pg/mL High 11-61 [facility] PTHINon 05-10-2024 PTH 74 pg/mL High [facility] Comment on above: Performed By: #### L 506.1001, L509.1000, L503.0106 ####[facility] [address] [place], [address] Platelet countOrdered By: Rambo Carrasco on 05-10-2024 Platelets (Bld) [#/Vol] 168 10*3/uL 150-450 [facility] Potassium (Unsp spec) [Mass/ Vol]Ordered By: Padmini Carrasco on 05-10-2024 Potassium [Moles/Vol] 4.8 mmol/L 3.3-5.1 [facility] Potassium measurement (mass/ volume)Ordered By: Padmini Carrasco on 05-10-2024 Potassium (Unsp spec) [Mass/Vol] 4.8 mmol/L 3.3-5.1 [facility] RBC Auto (Bld) [#/Vol]Ordere d By: Padmini Carrasco on 05-10-2024 RBC (Bld) [#/Vol] 4.53 10*6/uL Low 4.6-6.2 [facility] Screening total cholesterol/ high density lipoprotein (HDL) cholesterol ratioOrdered By: Padmini Carrasco on 05-10-2024 Cholesterol.total/Chol esterol in HDL [Mass ratio] 2.86 {ratio} [facility] Serum creatinine measurement (mass/volume)Ordered By: Padmini Carrasco on 05-10-2024 Creatinine [Mass/Vol] 1.64 mg/dL High 0.70-1.20 [facility] Serum globulin measurementOr dered By: Padmini Carrasco on 05-10-2024 Globulin (S) [Mass/Vol] 2.8 g/dL 2.2-4.2 [facility] Serum glucose measurement (m ass/volume)Ordered By: Padmini Carrasco on 05-10-2024 Glucose [Mass/Vol] 163 mg/dL High 70-99 [facility] Serum or plasma alanine perales otransferase (ALT) measurementOrdered By: Padmini Carrasco on 05-10-2024 ALT [Catalytic activity/Vol] 6 U/L <47 [facility] Serum or plasma albumin jamel urement (mass/volume)Ordered By: Padmini Carrasco on 05-10-2024 Albumin [Mass/Vol] 3.9 g/dL 3.4-4.8 [facility] Serum or plasma albumin/glob ulin mass ratioOrdered By: Padmini Carrasco on 05-10-2024 Albumin/Globulin [Mass ratio] 1.4 {ratio} 0.9-2.4 [facility] Serum or plasma alkaline masha sphatase measurementOrdered By: Padmini Carrasco on 05-10-2024 ALP [Catalytic activity/Vol] 73 U/L 40-129 [facility] Serum or plasma calcium jamel urement (mass/volume)Ordered By: Padmini Carrasco on 05-10-2024 Calcium [Mass/Vol] 9.0 mg/dL 7.6-11.0 [facility] Serum or plasma cholesterol in HDL measurement (mass/volume)Ordered By: Padmini Carrasco on 05-10-2024 Cholesterol in HDL [Mass/Vol] 50 mg/dL >40 [facility] Comment on above: National Cholesterol Education Program (NCEP) guidelines:<40 mg/dL: Low HDL-cholesterol (major risk factor for CHD)>= 60 mg/dL: High HDL-cholesterol (negative risk factor for CHD)HDL-cholesterol is affected by a number of factors, e.g. smoking, exercise, hormones, sex and age. Serum or plasma cholesterol measurement (mass/volume)Ordered By: Padmini Carrasco on 05-10-2024 Cholesterol [Mass/Vol] 144 mg/dL <201 [facility] Comment on above: Cholesterol level, D esirable <200 mg/dLBorderline high cholesterol 200-239 mg/dLHigh cholesterol >=240 mg/dLRecommendations of the NCEP Adult Treatment Panel for the following risk-cutoff thresholds for the [place] population. Serum or plasma urea nitroge n measurement (mass/volume)Ordered By: Padmini Carrasco on 05-10-2024 Urea nitrogen [Mass/Vol] 28 mg/dL High 4-19 [facility] Sodium levelOrdered By: Jaz Carrasco on 05-10-2024 Sodium [Moles/Vol] 138 mmol/L 133-145 [facility] TSH DL <= 0.005 mIU/L QnOrde red By: Padmini Carrasco on 05-10-2024 Thyroid Stimulating Hormone (TSH) 3.680 uIU/mL 0.300-4.200 [facility] TSH Qn 3.680 uIU/mL 0.300-4.200 [facility] Thyroid Stim Hormone (TSH)on 05-10-2024 TSH 3.680 uIU/mL Normal 0.300-4.200 [facility] Comment on above: Order Comment: Order Date: 10/12/23Order Info: [id number] - CMPOrder Info: [id number] - LIPIDOrder Info: 3 - TSHOrder Info: [id number] - PSAOrder Info: [id number] - FE Performed By: #### L 501.9520, [id number], L500.4100 ####[facility] [address] [place], [place], [address] Total proteinOrdered By: Agueda Carrasco on 05-10-2024 Protein [Mass/Vol] 6.7 g/dL 5.9-8.4 [facility] Triglycerides measurementOrd ered By: Padmini Carrasco on 05-10-2024 Triglyceride [Mass/Vol] 155 mg/dL <199 [facility] Comment on above: The drugs N-Acetylcy steine and Metamizole may falsely depress this assay. Normal range: <150 mg/dLBorderline High: 150-199 mg/dLHigh: 200-499 mg/dLVery High: >500 mg/dL Vitamin B12on 05-10-2024 Cobalamin (Vitamin B12) [Mass/Vol] 355 pg/mL Normal 180-914 [facility] Comment on above: Order Comment: Order Date: 10/12/23Order Info: [id number] - CMPOrder Info: [id number] - LIPIDOrder Info: [id number] - TSHOrder Info: [id number] - PSAOrder Info: [id number] - FE Performed By: #### L 506.1001, L509.1000, L503.0106 ####[facility] [address] [place], [address] Vitamin B12 ser/plasOrdered By: Padmini Carrasco on 05-10-2024 Cobalamin (Vitamin B12) [Mass/Vol] 355 pg/mL 180-914 [facility] Vitamin D, 25-hydroxyOrdered By: Padmini Carrasco on 05-10-2024 Vitamin D 25-Hydroxy 23.1 ng/mL Low 30-100 [facility] Comment on above: Vitamin D StatusDefi ciency: <20 ng/mL (50nmol/L)Insufficiency: 20-30 ng/mL (50-75 nmol/L)Sufficiency: 30-100 ng/mL (75-250 nmol/L)Toxicity: >100 ng/mL (>250 nmol/L) Vitamin D,25 Hydroxyon 05-10 Vitamin D 25-OH 23.1 ng/mL Low 30-100 [facility] Comment on above: Order Comment: Order Date: 10/12/23Order Info: [id number] - CMPOrder Info: [id number] - LIPIDOrder Info: [id number] - TSHOrder Info: [id number] - PSAOrder Info: [id number] - FE Result Comment: Tory min D StatusDeficiency: <20 ng/mL (50nmol/L)Insufficiency: 20-30 ng/mL (50-75 nmol/L)Sufficiency: 30-100 ng/mL (75-250 nmol/L)Toxicity: >100 ng/mL (>250 nmol/L) Performed By: #### L 506.1001, L509.1000, L503.0106 ####[facility] [address] [place], [address] White blood cell (WBC) count Ordered By: Padmini Carrasco on 05-10-2024 WBC (Bld) [#/Vol] 6.9 10*3/uL 4.4-11.0 [facility] Pulmonary Visit Reporton Pulmonary Visit Report Normal [facility] Low Dose CT Lung Screeningon 02-21-[address] Lung Screening Normal [facility] Surgery Visit Reporton 02-01 Surgery Visit Report Normal [facility] Discharge Instructionon 01-07 Discharge Instruction Normal [facility] MR/POSTOP.ANEon 01-18-2024 MR/POSTOP.ANE Normal [facility] [id number] 01-18-2024 MR/POSTOPAN2 Normal [facility] Operative Reporton Operative Report Normal [facility] Surgery Specimen Level IIon 01-18-2024 Surgery Specimen Level II Normal [facility] Comment on above: Performed By: #### P SUII ####[facility] [address] [place], [address] Basophil percentageOrdered B y: Farheen Alexander on 02-28-2023 Bilirubin [Mass/Vol] 0.20 mg/dL 0.20-1.00 [facility] Comment on above: For patients on eltr ombopag therapy, use of Dimension [place] TBIL is not recommended. Cholesterol [Mass/Vol] 119 mg/dL <200 [facility] Comment on above: <200 mg/dL Desirable 200-240 mg/dL Borderline >240 mg/dL High Risk Protein [Mass/Vol] 7.4 g/dL 6.4-8.2 [facility] Triglyceride [Mass/Vol] 100 mg/dL <199 [facility] Comment on above: The drugs N-Acetylcy steine and Metamizole may falsely depress this assay.Serum Triglycerides Reference Interval Normal <150 mg/dL Borderline high 150 - 199 mg/dL High 200 - 499 mg/dL Very High > or = 500 mg/dL Direct bilirubinOrdered By: Farheen Alexander on 02-28-2023 Bilirubin.direct [Mass/Vol] 0.11 mg/dL 0.00-0.30 [facility] High density lipoprotein (HD L) measurementOrdered By: Farheen Alexander on 02-28-2023 Cholesterol in HDL (Body fld) [Mass/Vol] 49 mg/dL >40 [facility] Comment on above: The drugs N-Acetylcy steine and Metamizole may falsely depress this assay. Reference Range HDL <40 mg/dL Low HDL Cholesterol HDL >or= 60 mg/dL High HDL Cholesterol Laboratory - Chemistry and C hemistry - challengeOrdered By: Farheen Alexander on 02-28-2023 ALP [Catalytic activity/Vol] 84 U/L 45-117 [facility] ALT [Catalytic activity/Vol] 12 U/L 16-61 [facility] Globulin (S) [Mass/Vol] 4.0 g/dL 2.2-4.2 [facility] Low density lipoprotein (LDL ) cholesterol measurementOrdered By: Farheen Alexander on 02-28-2023 Cholesterol in LDL (Body fld) [Moles/Vol] 50 mg/dL 0-130 [facility] Thin prep Papanicolaou smear with manual screeningOrdered By: Farheen Alexander on 02-28-2023 Thin prep Papanicolaou smear with manual screening 3.4 g/dL 3.2-5.0 [facility] Thin prep Papanicolaou smear with manual screening 13 U/L 15-37 [facility] Very low density lipoprotein (VLDL) cholesterol measurementOrdered By: Farheen Alexander on 02-28-2023 Cholesterol in VLDL Calc [Moles/Vol] 20 mg/dL 5-40 [facility] Basophil percentageOrdered B y: Ezekiel Carrasco on 12-14-2022 Chloride [Moles/Vol] 104 mmol/L 98-107 [facility] Glucose [Mass/Vol] 125 mg/dL 74-106 [facility] Comment on above: Fasting Glucose resu lt from 100 to 125 mg/dL suggests IMPAIRED HOMEOSTASIS per A.D.A. criteria. Potassium [Moles/Vol] 4.6 mmol/L 3.5-5.1 [facility] Sodium [Moles/Vol] 137 mmol/L 136-145 [facility] WBC (Bld) [#/Vol] 7.9 10*3/uL 4.4-11.0 [facility] Blood erythrocytes count (nu mber/volume)Ordered By: Ezekiel Carrasco on 12-14-2022 RBC (Bld) [#/Vol] 4.24 10*6/uL 4.6-6.2 [facility] Blood hemoglobin measurement (mass/volume)Ordered By: Ezekiel Carrasco on 12-14-2022 Hemoglobin (Bld) [Mass/Vol] 11.4 g/dL 13.0-16.5 [facility] Blood platelet mean volumeOr dered By: Ezekiel Carrasco on 12-14-2022 Platelet mean volume (Bld) [Entitic vol] 9.0 fL 6.2-12.0 [facility] Determination of erythrocyte mean corpuscular volume (MCV)Ordered By: Ezekiel Carrasco on 12-14-2022 MCV (RBC) [Entitic vol] 90.1 fL 80-94 [facility] Hematocrit Auto (Bld) [Volum e fraction]Ordered By: Ezekiel Carrasco on 12-14-2022 Hematocrit (Bld) [Volume fraction] 38.2 % 40-54 [facility] Iron measurement (mass/mass) Ordered By: Ezekiel Carrasco on 12-14-2022 Iron (Unsp spec) [Mass/Mass] 31 ug/dL 65-175 [facility] Laboratory - Chemistry and C hemistry - challengeOrdered By: Ezekiel Carrasco on 12-14-2022 Natriuretic peptide B (Bld) [Mass/Vol] 71.3 pg/mL 0-100 [facility] CO2 [Moles/Vol] 29.0 mmol/L 21.0-32.0 [facility] Urea nitrogen/Creatinine [Mass ratio] 17.7 mg/mg 10-20 [facility] - Hematology and Cell countsOrdered By: Ezekiel Carrasco on 12-14-2022 Erythrocyte distribution width (RBC) [Entitic vol] 47.3 fL 35.1-43.9 [facility] Erythrocyte distribution width (RBC) [Ratio] 14.3 % 11.6-14.6 [facility] MCH (RBC) [Entitic mass] 26.9 pg 27.0-32.0 [facility] MCHC Auto (RBC) [Mass/Vol]Or dered By: Ezekiel Carrasco on 12-14-2022 MCHC (RBC) [Mass/Vol] 29.8 g/dL 32-36 [facility] No Panel InformationOrdered By: Ezekiel Carrasco on 12-14-2022 Estimated GFR (MDRD) Amer 53 mL/min >60 [facility] Comment on above: GFR Calc Estimated GFR (MDRD) Non-Af Amer 44 mL/min >60 [facility] Comment on above: Non- GFR Calc Parathyroid Hormone (Intact) 83.4 pg/mL 18.4-80.1 [facility] Vitamin D 25-Hydroxy 28.8 ng/mL [facility] Comment on above: Vitamin D 25(OH) Sta tus Range Deficiency <20 ng/mL (50nmol/L) Insufficiency 20 - 30 ng/mL (50 - 75 nmol/L) Sufficiency 30 - 100 ng/mL (75 - 250 nmol/L) Toxicity >100 ng/mL (>250 nmol/L) Platelets bldOrdered By: Agueda Carrasco on 12-14-2022 Platelets (Bld) [#/Vol] 278 10*3/uL 150-450 [facility] Serum or plasma calcium jamel urement (mass/volume)Ordered By: Ezekiel Carrasco on 12-14-2022 Calcium [Mass/Vol] 8.9 mg/dL 8.5-10.1 [facility] Serum or plasma creatinine m easurement (mass/volume)Ordered By: Ezekiel Carrasco on 12-14-2022 Creatinine [Mass/Vol] 1.64 mg/dL 0.70-1.30 [facility] Comment on above: The validity of the calculated GFR & GFRAA in patients over 70 years has not been determined. Clinical correlation is essential. Serum or plasma urea nitroge n measurement (mass/volume)Ordered By: Ezekiel Carrasco on 12-14-2022 Urea nitrogen [Mass/Vol] 29 mg/dL 7-18 [facility] Thin prep Papanicolaou smear with manual screeningOrdered By: Ezekiel Carrasco on 12-14-2022 Thin prep Papanicolaou smear with manual screening 4 5-15 [facility] Basophil percentageOrdered B y: Ezekiel Carrasco on 08-16-2022 Bilirubin [Mass/Vol] 0.30 mg/dL 0.20-1.00 [facility] Comment on above: For patients on eltr ombopag therapy, use of Dimension [place] TBIL is not recommended. Chloride [Moles/Vol] 106 mmol/L 98-107 [facility] Glucose [Mass/Vol] 136 mg/dL 74-106 [facility] Comment on above: Fasting Glucose resu lt greater than or equal to 126 mg/dL suggests DIABETES MELLITUS per A.D.A. criteria. Potassium [Moles/Vol] 4.0 mmol/L 3.5-5.1 [facility] Protein [Mass/Vol] 7.0 g/dL 6.4-8.2 [facility] Sodium [Moles/Vol] 138 mmol/L 136-145 [facility] WBC (Bld) [#/Vol] 6.0 10*3/uL 4.4-11.0 [facility] Blood erythrocytes count (nu mber/volume)Ordered By: Ezekiel Carrasco on 08-16-2022 RBC (Bld) [#/Vol] 4.10 10*6/uL 4.6-6.2 [facility] Blood hemoglobin measurement (mass/volume)Ordered By: Ezekiel Carrasco on 08-16-2022 Hemoglobin (Bld) [Mass/Vol] 11.7 g/dL 13.0-16.5 [facility] Blood platelet mean volumeOr dered By: Ezekiel Carrasco on 08-16-2022 Platelet mean volume (Bld) [Entitic vol] 8.9 fL 6.2-12.0 [facility] Determination of erythrocyte mean corpuscular volume (MCV)Ordered By: Ezekiel Carrasco on 08-16-2022 MCV (RBC) [Entitic vol] 91.7 fL 80-94 [facility] Hematocrit Auto (Bld) [Volum e fraction]Ordered By: Ezekiel Carrasco on 08-16-2022 Hematocrit (Bld) [Volume fraction] 37.6 % 40-54 [facility] Hemoglobin in reticulocytes (mass per reticulocyte)Ordered By: Ezekiel Carrasco on 08-16-2022 Hemoglobin (Reticulocytes) [Entitic mass] 31.1 pg 30-35 [facility] Iron measurement (mass/mass) Ordered By: Ezekiel Carrasco on 08-16-2022 Iron (Unsp spec) [Mass/Mass] 45 ug/dL 65-175 [facility] Laboratory - Chemistry and C hemistry - challengeOrdered By: Ezekiel Carrasco on 08-16-2022 Natriuretic peptide B (Bld) [Mass/Vol] 196.1 pg/mL 0-100 [facility] ALP [Catalytic activity/Vol] 68 U/L 45-117 [facility] ALT [Catalytic activity/Vol] 11 U/L 16-61 [facility] CO2 [Moles/Vol] 29.0 mmol/L 21.0-32.0 [facility] Cobalamin (Vitamin B12) [Mass/Vol] 188 pg/mL 211-911 [facility] Globulin (S) [Mass/Vol] 3.7 g/dL 2.2-4.2 [facility] Urea nitrogen/Creatinine [Mass ratio] 12.7 mg/mg 10-20 [facility] Laboratory - Hematology and Cell countsOrdered By: Ezekiel Carrasco on 08-16-2022 Erythrocyte distribution width (RBC) [Entitic vol] 47.7 fL 35.1-43.9 [facility] Erythrocyte distribution width (RBC) [Ratio] 14.2 % 11.6-14.6 [facility] MCH (RBC) [Entitic mass] 28.5 pg 27.0-32.0 [facility] MCHC Auto (RBC) [Mass/Vol]Or dered By: Ezekiel Carrasco on 08-16-2022 MCHC (RBC) [Mass/Vol] 31.1 g/dL 32-36 [facility] No Panel InformationOrdered By: Ezekiel Carrasco on 08-16-2022 Estimated GFR (MDRD) Amer 53 mL/min >60 [facility] Comment on above: GFR Calc Estimated GFR (MDRD) Non-Af Amer 43 mL/min >60 [facility] Comment on above: Non- GFR Calc Immature Reticulocyte Fraction 8.60 % 3.00-15.90 [facility] Reticulocyte Count 0.92 % 0.5-1.5 [facility] Thyroid Stimulating Hormone (TSH) 1.68 uIU/mL 0.358-3.74 [facility] Total Iron Binding Capacity 323 ug/dL 250-450 [facility] Platelets bldOrdered By: Agueda Carrasco on 08-16-2022 Platelets (Bld) [#/Vol] 181 10*3/uL 150-450 [facility] Serum or plasma albumin jamel urement (mass/volume)Ordered By: Ezekiel Carrasco on 08-16-2022 Albumin [Mass/Vol] 3.3 g/dL 3.2-5.0 [facility] Serum or plasma albumin/glob ulin mass ratioOrdered By: Ezekiel Carrasco on 08-16-2022 Albumin/Globulin [Mass ratio] 0.9 {ratio} 0.9-2.4 [facility] Serum or plasma calcium jamel urement (mass/volume)Ordered By: Ezekiel Carrasco on 08-16-2022 Calcium [Mass/Vol] 8.6 mg/dL 8.5-10.1 [facility] Serum or plasma creatinine m easurement (mass/volume)Ordered By: Ezekiel Carrasco on 08-16-2022 Creatinine [Mass/Vol] 1.66 mg/dL 0.70-1.30 [facility] Comment on above: The validity of the calculated GFR & GFRAA in patients over 70 years has not been determined. Clinical correlation is essential. Serum or plasma ferritin ahmet surement (mass/volume)Ordered By: Ezekiel Carrasco on 08-16-2022 Ferritin [Mass/Vol] 49 ng/mL 26-388 [facility] Serum or plasma urea nitroge n measurement (mass/volume)Ordered By: Ezekiel Carrasco on 08-16-2022 Urea nitrogen [Mass/Vol] 21 mg/dL 7-18 [facility] Thin prep Papanicolaou smear with manual screeningOrdered By: Ezekiel Carrasco on 08-16-2022 Thin prep Papanicolaou smear with manual screening 11 U/L 15-37 [facility] Thin prep Papanicolaou smear with manual screening 3 5-15 [facility] Basophil percentageOrdered B y: Isela Kwok on 05-17-2022 Chloride [Moles/Vol] 107 mmol/L 98-107 [facility] Glucose [Mass/Vol] 99 mg/dL 74-106 [facility] Potassium [Moles/Vol] 4.3 mmol/L 3.5-5.1 [facility] Sodium [Moles/Vol] 136 mmol/L 136-145 [facility] Laboratory - Chemistry and C hemistry - challengeOrdered By: Isela Kwok on 05-17-2022 CO2 [Moles/Vol] 27.0 mmol/L 21.0-32.0 [facility] Urea nitrogen/Creatinine [Mass ratio] 16.3 mg/mg 10-20 [facility] No Panel InformationOrdered By: Isela Kwok on 05-17-2022 Estimated GFR (MDRD) Amer 53 mL/min >60 [facility] Comment on above: GFR Calc Estimated GFR (MDRD) Non-Af Amer 44 mL/min >60 [facility] Comment on above: Non- GFR Calc Serum or plasma calcium jamel urement (mass/volume)Ordered By: Isela Kwok on 05-17-2022 Calcium [Mass/Vol] 8.9 mg/dL 8.5-10.1 [facility] Serum or plasma creatinine m easurement (mass/volume)Ordered By: Isela Kwok on 05-17-2022 Creatinine [Mass/Vol] 1.66 mg/dL 0.70-1.30 [facility] Comment on above: The validity of the calculated GFR & GFRAA in patients over 70 years has not been determined. Clinical correlation is essential. Serum or plasma urea nitroge n measurement (mass/volume)Ordered By: Isela Kwok on 05-17-2022 Urea nitrogen [Mass/Vol] 27 mg/dL 7-18 [facility] Thin prep Papanicolaou smear with manual screeningOrdered By: Isela Kwok on 05-17-2022 Thin prep Papanicolaou smear with manual screening 2 5-15 [facility] Basophil percentageOrdered B y: Tc Subramanian on 04-02-2022 Chloride [Moles/Vol] 97 mmol/L 98-107 [facility] Glucose [Mass/Vol] 206 mg/dL 74-106 [facility] Comment on above: Glucose result great er than or equal to 200 mg/dLsuggests DIABETES MELLITUS per A.D.A. criteria. Potassium [Moles/Vol] 4.2 mmol/L 3.5-5.1 [facility] Sodium [Moles/Vol] 135 mmol/L 136-145 [facility] Laboratory - Chemistry and C hemistry - challengeOrdered By: Tc Subramanian on 04-02-2022 CO2 [Moles/Vol] 29.0 mmol/L 21.0-32.0 [facility] Urea nitrogen/Creatinine [Mass ratio] 22.0 mg/mg 11-26 [facility] No Panel InformationOrdered By: Tc Subramanian on 04-02-2022 Estimated GFR (MDRD) Amer 47 mL/min >60 [facility] Comment on above: GFR Calc Estimated GFR (MDRD) Non-Af Amer 39 mL/min >60 [facility] Comment on above: Non- GFR Calc Serum or plasma calcium jamel urement (mass/volume)Ordered By: Tc Subramanian on 04-02-2022 Calcium [Mass/Vol] 8.9 mg/dL 8.5-10.1 [facility] Serum or plasma creatinine m easurement (mass/volume)Ordered By: Tc Subramanian on 04-02-2022 Creatinine [Mass/Vol] 1.82 mg/dL 0.70-1.30 [facility] Comment on above: The validity of the calculated GFR & GFRAA in patients over 70 years has not been determined. Clinical correlation is essential. Serum or plasma urea nitroge n measurement (mass/volume)Ordered By: Tc Subramanian on 04-02-2022 Urea nitrogen [Mass/Vol] 40 mg/dL 7-18 [facility] Thin prep Papanicolaou smear with manual screeningOrdered By: Tc Subramanian on 04-02-2022 Thin prep Papanicolaou smear with manual screening 9 5-15 [facility] Basophil percentageOrdered B y: Tc Subramanian on 03-29-2022 Chloride [Moles/Vol] 98 mmol/L 98-107 [facility] Glucose [Mass/Vol] 101 mg/dL 74-106 [facility] Comment on above: Fasting Glucose resu lt from 100 to 125 mg/dL suggests IMPAIRED HOMEOSTASIS per A.D.A. criteria. Potassium [Moles/Vol] 5.3 mmol/L 3.5-5.1 [facility] Sodium [Moles/Vol] 135 mmol/L 136-145 [facility] Laboratory - Chemistry and C hemistry - challengeOrdered By: Tc Subramanian on 03-29-2022 CO2 [Moles/Vol] 32.0 mmol/L 21.0-32.0 [facility] Urea nitrogen/Creatinine [Mass ratio] 19.3 mg/mg 11-26 [facility] No Panel InformationOrdered By: Tc Subramanian on 03-29-2022 Estimated GFR (MDRD) Amer 30 mL/min >60 [facility] Comment on above: GFR Calc Estimated GFR (MDRD) Non-Af Amer 25 mL/min >60 [facility] Comment on above: Non- GFR Calc Serum or plasma calcium jamel urement (mass/volume)Ordered By: Tc Subramanian on 03-29-2022 Calcium [Mass/Vol] 8.7 mg/dL 8.5-10.1 [facility] Serum or plasma creatinine m easurement (mass/volume)Ordered By: Tc Subramanian on 03-29-2022 Creatinine [Mass/Vol] 2.69 mg/dL 0.70-1.30 [facility] Comment on above: The validity of the calculated GFR & GFRAA in patients over 70 years has not been determined. Clinical correlation is essential. Serum or plasma urea nitroge n measurement (mass/volume)Ordered By: Tc Subramanian on 03-29-2022 Urea nitrogen [Mass/Vol] 52 mg/dL 7-18 [facility] Thin prep Papanicolaou smear with manual screeningOrdered By: Tc Subramanian on 03-29-2022 Thin prep Papanicolaou smear with manual screening 5 5-15 [facility] Absolute lymphocyte countOrd ered By: Dr. Carrasco on 03-18-2022 Lymphocytes Auto (Unsp spec) [#/Vol] 1.42 10*3/uL 0.83-4.51 [facility] Basophil percentageOrdered B y: Dr. Carrasco on 03-18-2022 Basophils/100 WBC (Bld) 0.0 % 0-1 [facility] Bilirubin [Mass/Vol] 0.30 mg/dL 0.20-1.00 [facility] Comment on above: For patients on eltr ombopag therapy, use of Dimension [place] TBIL is not recommended. Chloride [Moles/Vol] 98 mmol/L 98-107 [facility] Eosinophils/100 WBC (Bld) 0.0 % 0-5 [facility] Glucose [Mass/Vol] 333 mg/dL 74-106 [facility] Comment on above: Glucose result great er than or equal to 200 mg/dLsuggests DIABETES MELLITUS per A.D.A. criteria. Neutrophils (Bld) [#/Vol] 4.8 10*3/uL 2.0-7.7 [facility] Neutrophils/100 WBC (Bld) 72.7 % 47-70 [facility] Potassium [Moles/Vol] 3.7 mmol/L 3.5-5.1 [facility] Protein [Mass/Vol] 6.3 g/dL 6.4-8.2 [facility] Sodium [Moles/Vol] 140 mmol/L 136-145 [facility] WBC (Bld) [#/Vol] 6.6 10*3/uL 4.4-11.0 [facility] Blood erythrocytes count (nu mber/volume)Ordered By: Dr. Carrasco on 03-18-2022 RBC (Bld) [#/Vol] 3.19 10*6/uL 4.6-6.2 [facility] Blood hemoglobin measurement (mass/volume)Ordered By: Dr. Carrasco on 03-18-2022 Hemoglobin (Bld) [Mass/Vol] 9.1 g/dL 13.0-16.5 [facility] Blood lymphocytes/100 leukoc ytesOrdered By: Dr. Carrasco on 03-18-2022 Lymphocytes/100 WBC (Bld) 21.5 % 19-41 [facility] Blood monocytes/100 leukocyt esOrdered By: Dr. Carrasco on 03-18-2022 Monocytes/100 WBC (Bld) 5.0 % 0-10 [facility] Blood platelet mean volumeOr dered By: Dr. Carrasco on 03-18-2022 Platelet mean volume (Bld) [Entitic vol] 10.0 fL 6.2-12.0 [facility] Determination of erythrocyte mean corpuscular volume (MCV)Ordered By: Dr. Carrasco on 03-18-2022 MCV (RBC) [Entitic vol] 97.8 fL 80-94 [facility] Hematocrit Auto (Bld) [Volum e fraction]Ordered By: Dr. Carrasco on 03-18-2022 Hematocrit (Bld) [Volume fraction] 31.2 % 40-54 [facility] Laboratory - Chemistry and C hemistry - challengeOrdered By: Dr. Carrasco on 03-18-2022 ALP [Catalytic activity/Vol] 114 U/L 45-117 [facility] ALT [Catalytic activity/Vol] 39 U/L 16-61 [facility] CO2 [Moles/Vol] 33.0 mmol/L 21.0-32.0 [facility] Globulin (S) [Mass/Vol] 3.6 g/dL 2.2-4.2 [facility] Natriuretic peptide B (Bld) [Mass/Vol] 2375.1 pg/mL 0-100 [facility] Urea nitrogen/Creatinine [Mass ratio] 30.7 mg/mg 10-20 [facility] Laboratory - Hematology and Cell countsOrdered By: Dr. Carrasco on 03-18-2022 Erythrocyte distribution width (RBC) [Entitic vol] 53.3 fL 35.1-43.9 [facility] Erythrocyte distribution width (RBC) [Ratio] 14.6 % 11.6-14.6 [facility] Immature granulocytes/100 WBC (Bld) 0.800 % 0.0-0.9 [facility] Comment on above: IG% - Immature Granu locytes (promyelocytes, myelocytes and metamyelocytes) > 1% indicates that a LEFT SHIFT is Present. MCH (RBC) [Entitic mass] 28.5 pg 27.0-32.0 [facility] Nucleated RBC/100 WBC (Bld) [Ratio] 0 % 0-5 [facility] MCHC Auto (RBC) [Mass/Vol]Or dered By: Dr. Carrasco on 03-18-2022 MCHC (RBC) [Mass/Vol] 29.2 g/dL 32-36 [facility] No Panel InformationOrdered By: Dr. Carrasco on 03-18-2022 Estimated GFR (MDRD) Amer 58 mL/min >60 [facility] Comment on above: GFR Calc Estimated GFR (MDRD) Non-Af Amer 48 mL/min >60 [facility] Comment on above: Non- GFR Calc Platelets bldOrdered By: Dr. Carrasco on 03-18-2022 Platelets (Bld) [#/Vol] 131 10*3/uL 150-450 [facility] Serum or plasma albumin jamel urement (mass/volume)Ordered By: Dr. Carrasco on 03-18-2022 Albumin [Mass/Vol] 2.7 g/dL 3.2-5.0 [facility] Serum or plasma albumin/glob ulin mass ratioOrdered By: Dr. Carrasco on 03-18-2022 Albumin/Globulin [Mass ratio] 0.8 {ratio} 0.9-2.4 [facility] Serum or plasma calcium jamel urement (mass/volume)Ordered By: Dr. Carrasco on 03-18-2022 Calcium [Mass/Vol] 8.2 mg/dL 8.5-10.1 [facility] Serum or plasma creatinine m easurement (mass/volume)Ordered By: Dr. Carrasco on 03-18-2022 Creatinine [Mass/Vol] 1.53 mg/dL 0.70-1.30 [facility] Comment on above: The validity of the calculated GFR & GFRAA in patients over 70 years has not been determined. Clinical correlation is essential. Serum or plasma urea nitroge n measurement (mass/volume)Ordered By: Dr. Carrasco on 03-18-2022 Urea nitrogen [Mass/Vol] 47 mg/dL 7-18 [facility] Thin prep Papanicolaou smear with manual screeningOrdered By: Dr. Carrasco on 03-18-2022 Thin prep Papanicolaou smear with manual screening 22 U/L 15-37 [facility] Thin prep Papanicolaou smear with manual screening 9 5-15 [facility] Absolute lymphocyte countOrd ered By: Kasey Arenas on 03-10-2022 Lymphocytes Auto (Unsp spec) [#/Vol] 1.66 10*3/uL 0.83-4.51 [facility] Basophil percentageOrdered B y: Kasey Arenas on 03-10-2022 Basophils/100 WBC (Bld) 0.0 % 0-1 [facility] Bilirubin [Mass/Vol] 0.50 mg/dL 0.20-1.00 [facility] Comment on above: For patients on eltr ombopag therapy, use of Dimension [place] TBIL is not recommended. Chloride [Moles/Vol] 102 mmol/L 98-107 [facility] Eosinophils/100 WBC (Bld) 0.3 % 0-5 [facility] Glucose [Mass/Vol] 133 mg/dL 74-106 [facility] Comment on above: Fasting Glucose resu lt greater than or equal to 126 mg/dL suggests DIABETES MELLITUS per A.D.A. criteria. Neutrophils (Bld) [#/Vol] 4.1 10*3/uL 2.0-7.7 [facility] Neutrophils/100 WBC (Bld) 65.1 % 47-70 [facility] Potassium [Moles/Vol] 4.5 mmol/L 3.5-5.1 [facility] Protein [Mass/Vol] 6.2 g/dL 6.4-8.2 [facility] Sodium [Moles/Vol] 141 mmol/L 136-145 [facility] WBC (Bld) [#/Vol] 6.3 10*3/uL 4.4-11.0 [facility] Blood erythrocytes count (nu mber/volume)Ordered By: Kasey Arenas on 03-10-2022 RBC (Bld) [#/Vol] 3.24 10*6/uL 4.6-6.2 [facility] Blood hemoglobin measurement (mass/volume)Ordered By: Kasey Arenas on 03-10-2022 Hemoglobin (Bld) [Mass/Vol] 9.3 g/dL 13.0-16.5 [facility] Blood lymphocytes/100 leukoc ytesOrdered By: Kasey Arenas on 03-10-2022 Lymphocytes/100 WBC (Bld) 26.3 % 19-41 [facility] Blood monocytes/100 leukocyt esOrdered By: Kasey Arenas on 03-10-2022 Monocytes/100 WBC (Bld) 7.8 % 0-10 [facility] Blood platelet mean volumeOr dered By: Kasey Arenas on 03-10-2022 Platelet mean volume (Bld) [Entitic vol] 9.9 fL 6.2-12.0 [facility] Determination of erythrocyte mean corpuscular volume (MCV)Ordered By: Kasey Arenas on 03-10-2022 MCV (RBC) [Entitic vol] 99.1 fL 80-94 [facility] Hematocrit Auto (Bld) [Volum e fraction]Ordered By: Kasey Arenas on 03-10-2022 Hematocrit (Bld) [Volume fraction] 32.1 % 40-54 [facility] - Chemistry and C hemistry - challengeOrdered By: Kasey Arenas on 03-10-2022 ALP [Catalytic activity/Vol] 144 U/L 45-117 [facility] ALT [Catalytic activity/Vol] 44 U/L 16-61 [facility] CO2 [Moles/Vol] 33.0 mmol/L 21.0-32.0 [facility] Globulin (S) [Mass/Vol] 3.4 g/dL 2.2-4.2 [facility] Urea nitrogen/Creatinine [Mass ratio] 31.5 mg/mg 10-20 [facility] - Hematology and Cell countsOrdered By: Kasey Arenas on 03-10-2022 Erythrocyte distribution width (RBC) [Entitic vol] 56.9 fL 35.1-43.9 [facility] Erythrocyte distribution width (RBC) [Ratio] 15.4 % 11.6-14.6 [facility] Immature granulocytes/100 WBC (Bld) 0.500 % 0.0-0.9 [facility] Comment on above: IG% - Immature Granu locytes (promyelocytes, myelocytes and metamyelocytes) > 1% indicates that a LEFT SHIFT is Present. MCH (RBC) [Entitic mass] 28.7 pg 27.0-32.0 [facility] Nucleated RBC/100 WBC (Bld) [Ratio] 0 % 0-5 [facility] MCHC Auto (RBC) [Mass/Vol]Or dered By: Kasey Arenas on 03-10-2022 MCHC (RBC) [Mass/Vol] 29.0 g/dL 32-36 [facility] No Panel InformationOrdered By: Kasey Arenas on 03-10-2022 Estimated GFR (MDRD) Amer 61 mL/min >60 [facility] Comment on above: GFR Calc Estimated GFR (MDRD) Non-Af Amer 50 mL/min >60 [facility] Comment on above: Non- GFR Calc Platelets bldOrdered By: Shell Arenas on 03-10-2022 Platelets (Bld) [#/Vol] 109 10*3/uL 150-450 [facility] Serum or plasma albumin jamel urement (mass/volume)Ordered By: Kasey Arenas on 03-10-2022 Albumin [Mass/Vol] 2.8 g/dL 3.2-5.0 [facility] Serum or plasma albumin/glob ulin mass ratioOrdered By: Kasey Arenas on 03-10-2022 Albumin/Globulin [Mass ratio] 0.8 {ratio} 0.9-2.4 [facility] Serum or plasma calcium jamel urement (mass/volume)Ordered By: Kasey Arenas on 03-10-2022 Calcium [Mass/Vol] 8.1 mg/dL 8.5-10.1 [facility] Serum or plasma creatinine m easurement (mass/volume)Ordered By: Kasey Arenas on 03-10-2022 Creatinine [Mass/Vol] 1.46 mg/dL 0.70-1.30 [facility] Comment on above: The validity of the calculated GFR & GFRAA in patients over 70 years has not been determined. Clinical correlation is essential. Serum or plasma urea nitroge n measurement (mass/volume)Ordered By: Kasey Arenas on 03-10-2022 Urea nitrogen [Mass/Vol] 46 mg/dL 7-18 [facility] Thin prep Papanicolaou smear with manual screeningOrdered By: Kasey Arenas on 03-10-2022 Thin prep Papanicolaou smear with manual screening 36 U/L 15-37 [facility] Thin prep Papanicolaou smear with manual screening 6 5-15 [facility] Bacteria identified Respirat ory culture Nom (Unsp spec)Ordered By: Dr. Banks on 03-06-2022 Respiratory Culture Stenotrophomonas maltophilia [facility] Absolute lymphocyte countOrd ered By: Dr. Banks on 03-04-2022 Lymphocytes Auto (Unsp spec) [#/Vol] 0.84 10*3/uL 0.83-4.51 [facility] Basophil percentageOrdered B y: Dr. Banks on 03-04-2022 Basophils/100 WBC (Bld) 0.0 % 0-1 [facility] Chloride [Moles/Vol] 104 mmol/L 98-107 [facility] Eosinophils/100 WBC (Bld) 0.0 % 0-5 [facility] Glucose [Mass/Vol] 223 mg/dL 74-106 [facility] Comment on above: Glucose result great er than or equal to 200 mg/dLsuggests DIABETES MELLITUS per A.D.A. criteria. Neutrophils (Bld) [#/Vol] 3.8 10*3/uL 2.0-7.7 [facility] Neutrophils/100 WBC (Bld) 78.5 % 47-70 [facility] Potassium [Moles/Vol] 5.2 mmol/L 3.5-5.1 [facility] Sodium [Moles/Vol] 139 mmol/L 136-145 [facility] WBC (Bld) [#/Vol] 4.9 10*3/uL 4.4-11.0 [facility] Blood erythrocytes count (nu mber/volume)Ordered By: Dr. Banks on 03-04-2022 RBC (Bld) [#/Vol] 2.99 10*6/uL 4.6-6.2 [facility] Blood hemoglobin measurement (mass/volume)Ordered By: Dr. aBnks on 03-04-2022 Hemoglobin (Bld) [Mass/Vol] 8.8 g/dL 13.0-16.5 [facility] Blood lymphocytes/100 leukoc ytesOrdered By: Dr. Banks on 03-04-2022 Lymphocytes/100 WBC (Bld) 17.2 % 19-41 [facility] Blood monocytes/100 leukocyt esOrdered By: Dr. Banks on 03-04-2022 Monocytes/100 WBC (Bld) 3.5 % 0-10 [facility] Blood platelet mean volumeOr dered By: Dr. Banks on 03-04-2022 Platelet mean volume (Bld) [Entitic vol] 10.2 fL 6.2-12.0 [facility] Determination of erythrocyte mean corpuscular volume (MCV)Ordered By: Dr. Banks on 03-04-2022 MCV (RBC) [Entitic vol] 100.7 fL 80-94 [facility] Hematocrit Auto (Bld) [Volum e fraction]Ordered By: Dr. Banks on 03-04-2022 Hematocrit (Bld) [Volume fraction] 30.1 % 40-54 [facility] - Chemistry and C hemistry - challengeOrdered By: Dr. Banks on 03-04-2022 CO2 [Moles/Vol] 28.0 mmol/L 21.0-32.0 [facility] Urea nitrogen/Creatinine [Mass ratio] 24.2 mg/mg 10-20 [facility] - Hematology and Cell countsOrdered By: Dr. Banks on 03-04-2022 Erythrocyte distribution width (RBC) [Entitic vol] 63.7 fL 35.1-43.9 [facility] Erythrocyte distribution width (RBC) [Ratio] 17.0 % 11.6-14.6 [facility] Immature granulocytes/100 WBC (Bld) 0.800 % 0.0-0.9 [facility] Comment on above: IG% - Immature Granu locytes (promyelocytes, myelocytes and metamyelocytes) > 1% indicates that a LEFT SHIFT is Present. MCH (RBC) [Entitic mass] 29.4 pg 27.0-32.0 [facility] Nucleated RBC/100 WBC (Bld) [Ratio] 0 % 0-5 [facility] MCHC Auto (RBC) [Mass/Vol]Or dered By: Dr. Banks on 03-04-2022 MCHC (RBC) [Mass/Vol] 29.2 g/dL 32-36 [facility] No Panel InformationOrdered By: Dr. Banks on 03-04-2022 Estimated Creatinine Clearance Calc 25.11 ml/min [facility] Estimated GFR (MDRD) Amer 34 mL/min >60 [facility] Comment on above: GFR Calc Estimated GFR (MDRD) Non-Af Amer 28 mL/min >60 [facility] Comment on above: Non- GFR Calc Platelets bldOrdered By: Dr. Banks on 03-04-2022 Platelets (Bld) [#/Vol] 104 10*3/uL 150-450 [facility] Serum or plasma calcium jamel urement (mass/volume)Ordered By: Dr. Banks on 03-04-2022 Calcium [Mass/Vol] 8.1 mg/dL 8.5-10.1 [facility] Serum or plasma creatinine m easurement (mass/volume)Ordered By: Dr. Banks on 03-04-2022 Creatinine [Mass/Vol] 2.40 mg/dL 0.70-1.30 [facility] Comment on above: The validity of the calculated GFR & GFRAA in patients over 70 years has not been determined. Clinical correlation is essential. Serum or plasma urea nitroge n measurement (mass/volume)Ordered By: Dr. Banks on 03-04-2022 Urea nitrogen [Mass/Vol] 58 mg/dL 7-18 [facility] Thin prep Papanicolaou smear with manual screeningOrdered By: Dr. Banks on 03-04-2022 Thin prep Papanicolaou smear with manual screening 7 5-15 [facility] Basophil percentageOrdered B y: Dr. Banks on 03-03-2022 Basophil percentage 4.9 mg/dL 2.5-4.9 [facility] Bilirubin [Mass/Vol] 0.60 mg/dL 0.20-1.00 [facility] Comment on above: For patients on eltr ombopag therapy, use of Dimension [place] TBIL is not recommended. Protein [Mass/Vol] 6.8 g/dL 6.4-8.2 [facility] Blood platelet adequacy dete ction by light microscopyOrdered By: Dr. Banks on 03-03-2022 Platelets LM Ql (Bld) MOD DEC ADEQ [facility] Gram stain for investigation of transfusion reactionOrdered By: Dr. Banks on 03-03-2022 Microscopic observation Gram stain Nom (Unsp spec) [facility] - Chemistry and C hemistry - challengeOrdered By: Dr. Banks on 03-03-2022 ALP [Catalytic activity/Vol] 138 U/L 45-117 [facility] ALT [Catalytic activity/Vol] 15 U/L 16-61 [facility] Globulin (S) [Mass/Vol] 4.2 g/dL 2.2-4.2 [facility] Magnesium [Mass/Vol] 1.9 mg/dL 1.6-2.6 [facility] - Hematology and Cell countsOrdered By: Dr. Banks on 03-03-2022 Anisocytosis Ql (Bld) 1+ [facility] Macrocytes detectionOrdered By: Dr. Banks on 03-03-2022 Macrocytes Ql (Bld) 1+ [facility] No Panel InformationOrdered By: Dr. Banks on 03-03-2022 Thyroid Stimulating Hormone (TSH) 2.41 uIU/mL 0.358-3.74 [facility] Review by pathologistOrdered By: Dr. Banks on 03-03-2022 Pathologist review Alvin (Unsp spec) [Interp] Reviewed [facility] Comment on above: Previous reported re sult: Suyapa bernard Edited by: RGOFRANKY on 03/04/22:1039Pancytopenia.Leukopenia Macrocytic anemia.ThrombocytopeniaClinical correlation necessary.Keith Gates M.D. 03/04/22 AMENDED REPORT 03/04/22 1039 PATH REV previously reported as: Suyapa wagner Serum or plasma albumin jamel urement (mass/volume)Ordered By: Dr. Banks on 03-03-2022 Albumin [Mass/Vol] 2.6 g/dL 3.2-5.0 [facility] Serum or plasma albumin/glob ulin mass ratioOrdered By: Dr. Banks on 03-03-2022 Albumin/Globulin [Mass ratio] 0.6 {ratio} 0.9-2.4 [facility] Thin prep Papanicolaou smear with manual screeningOrdered By: Dr. Banks on 03-03-2022 Thin prep Papanicolaou smear with manual screening 18 U/L 15-37 [facility] Urine Legionella pneumophila antigen detectionOrdered By: Dr. Banks on 03-03-2022 L. pneumophila Ag Ql (U) [facility] Absolute lymphocyte countOrd ered By: Dr. Garland on 03-02-2022 Lymphocytes Auto (Unsp spec) [#/Vol] 1.47 10*3/uL 0.83-4.51 [facility] Basophil percentageOrdered B y: Dr. Garland on 03-02-2022 Basophils/100 WBC (Bld) 0.0 % 0-1 [facility] Chloride [Moles/Vol] 106 mmol/L 98-107 [facility] Eosinophils/100 WBC (Bld) 0.2 % 0-5 [facility] Glucose [Mass/Vol] 112 mg/dL 74-106 [facility] Comment on above: Fasting Glucose resu lt from 100 to 125 mg/dL suggests IMPAIRED HOMEOSTASIS per A.D.A. criteria. Neutrophils (Bld) [#/Vol] 3.6 10*3/uL 2.0-7.7 [facility] Neutrophils/100 WBC (Bld) 66.7 % 47-70 [facility] Potassium [Moles/Vol] 4.5 mmol/L 3.5-5.1 [facility] Sodium [Moles/Vol] 141 mmol/L 136-145 [facility] WBC (Bld) [#/Vol] 5.3 10*3/uL 4.4-11.0 [facility] Blood erythrocytes count (nu mber/volume)Ordered By: Dr. Garland on 03-02-2022 RBC (Bld) [#/Vol] 4.06 10*6/uL 4.6-6.2 [facility] Blood hemoglobin measurement (mass/volume)Ordered By: Dr. Garland on 03-02-2022 Hemoglobin (Bld) [Mass/Vol] 12.0 g/dL 13.0-16.5 [facility] Blood lymphocytes/100 leukoc ytesOrdered By: Dr. Garland on 03-02-2022 Lymphocytes/100 WBC (Bld) 27.6 % 19-41 [facility] Blood monocytes/100 leukocyt esOrdered By: Dr. Garland on 03-02-2022 Monocytes/100 WBC (Bld) 5.1 % 0-10 [facility] Blood platelet mean volumeOr dered By: Dr. Garland on 03-02-2022 Platelet mean volume (Bld) [Entitic vol] 10.3 fL 6.2-12.0 [facility] Determination of erythrocyte mean corpuscular volume (MCV)Ordered By: Dr. Garland on 03-02-2022 MCV (RBC) [Entitic vol] 100.2 fL 80-94 [facility] Hematocrit Auto (Bld) [Volum e fraction]Ordered By: Dr. Garland on 03-02-2022 Hematocrit (Bld) [Volume fraction] 40.7 % 40-54 [facility] Influenza virus A and B and SARS-CoV-2 (COVID-19) Ag panel - Upper respiratory specimOrdered By: Dr. Garland on 03-02-2022 SARS-CoV-2 (COVID-19) RNA AMBER+probe Ql (Resp) [facility] - Chemistry and C hemistry - challengeOrdered By: Dr. Garland on 03-02-2022 CO2 [Moles/Vol] 29.0 mmol/L 21.0-32.0 [facility] Urea nitrogen/Creatinine [Mass ratio] 19.6 mg/mg 10-20 [facility] - Hematology and Cell countsOrdered By: Dr. Garland on 03-02-2022 Anisocytosis Ql (Bld) 1+ [facility] Erythrocyte distribution width (RBC) [Entitic vol] 65.8 fL 35.1-43.9 [facility] Erythrocyte distribution width (RBC) [Ratio] 17.5 % 11.6-14.6 [facility] Immature granulocytes/100 WBC (Bld) 0.400 % 0.0-0.9 [facility] Comment on above: IG% - Immature Granu locytes (promyelocytes, myelocytes and metamyelocytes) > 1% indicates that a LEFT SHIFT is Present. MCH (RBC) [Entitic mass] 29.6 pg 27.0-32.0 [facility] Nucleated RBC/100 WBC (Bld) [Ratio] 0 % 0-5 [facility] MCHC Auto (RBC) [Mass/Vol]Or dered By: Dr. Garland on 03-02-2022 MCHC (RBC) [Mass/Vol] 29.5 g/dL 32-36 [facility] No Panel InformationOrdered By: Dr. Banks on 03-02-2022 Methicillin-Resist S.aureus DNA PCR Negative Negative [facility] No Panel InformationOrdered By: Dr. Garland on 03-02-2022 Estimated Creatinine Clearance Calc 26.90 ml/min [facility] Estimated GFR (MDRD) Amer 37 mL/min >60 [facility] Comment on above: GFR Calc Estimated GFR (MDRD) Non-Af Amer 31 mL/min >60 [facility] Comment on above: Non- GFR Calc Troponin I High Sensitivity 56 pg/mL 3.0-78.0 [facility] Comment on above: Please Note: New Mitali t Units and Gender Specific Reference Ranges. For more information see Policy Stat Procedure [place] High Sensitivity Troponin (TNIH) and attachments. Platelets bldOrdered By: Dr. Garland on 03-02-2022 Platelets (Bld) [#/Vol] 117 10*3/uL 150-450 [facility] Serum or plasma calcium jamel urement (mass/volume)Ordered By: Dr. Garland on 03-02-2022 Calcium [Mass/Vol] 8.5 mg/dL 8.5-10.1 [facility] Serum or plasma creatinine m easurement (mass/volume)Ordered By: Dr. Garland on 03-02-2022 Creatinine [Mass/Vol] 2.24 mg/dL 0.70-1.30 [facility] Comment on above: The validity of the calculated GFR & GFRAA in patients over 70 years has not been determined. Clinical correlation is essential. Serum or plasma urea nitroge n measurement (mass/volume)Ordered By: Dr. Garland on 03-02-2022 Urea nitrogen [Mass/Vol] 44 mg/dL 7-18 [facility] Thin prep Papanicolaou smear with manual screeningOrdered By: Dr. Garland on 03-02-2022 Thin prep Papanicolaou smear with manual screening 6 5-15 [facility] Basophil percentageOrdered B y: Dr. Carrasco on 02-25-2022 Chloride [Moles/Vol] 107 mmol/L 98-107 [facility] Glucose [Mass/Vol] 219 mg/dL 74-106 [facility] Comment on above: Glucose result great er than or equal to 200 mg/dLsuggests DIABETES MELLITUS per A.D.A. criteria. Potassium [Moles/Vol] 4.2 mmol/L 3.5-5.1 [facility] Sodium [Moles/Vol] 143 mmol/L 136-145 [facility] WBC (Bld) [#/Vol] 5.0 10*3/uL 4.4-11.0 [facility] Blood erythrocytes count (nu mber/volume)Ordered By: Dr. Carrasco on 02-25-2022 RBC (Bld) [#/Vol] 3.27 10*6/uL 4.6-6.2 [facility] Blood hemoglobin measurement (mass/volume)Ordered By: Dr. Carrasco on 02-25-2022 Hemoglobin (Bld) [Mass/Vol] 9.9 g/dL 13.0-16.5 [facility] Blood manual differential co mment interpretation (narrative result)Ordered By: Dr. Carrasco on 02-25-2022 Manual differential comment Alvin (Bld) [Interp] See comment [facility] Comment on above: THROMBOCYTOPENIA MOD . DECREASEDANISOCYTOSIS RARE Blood platelet mean volumeOr dered By: Dr. Carrasco on 02-25-2022 Platelet mean volume (Bld) [Entitic vol] 10.3 fL 6.2-12.0 [facility] Determination of erythrocyte mean corpuscular volume (MCV)Ordered By: Dr. Carrasco on 02-25-2022 MCV (RBC) [Entitic vol] 103.7 fL 80-94 [facility] Hematocrit Auto (Bld) [Volum e fraction]Ordered By: Dr. Carrasco on 02-25-2022 Hematocrit (Bld) [Volume fraction] 33.9 % 40-54 [facility] Hemoglobin in reticulocytes (mass per reticulocyte)Ordered By: Dr. Carrasco on 02-25-2022 Hemoglobin (Reticulocytes) [Entitic mass] 27.9 pg 30-35 [facility] Iron measurement (mass/mass) Ordered By: Dr. Carrasco on 02-25-2022 Iron (Unsp spec) [Mass/Mass] 37 ug/dL 65-175 [facility] - Chemistry and C hemistry - challengeOrdered By: Dr. Carrasco on 02-25-2022 CO2 [Moles/Vol] 29.0 mmol/L 21.0-32.0 [facility] Urea nitrogen/Creatinine [Mass ratio] 20.0 mg/mg 10-20 [facility] - Hematology and Cell countsOrdered By: Dr. Carrasco on 02-25-2022 Erythrocyte distribution width (RBC) [Entitic vol] 72.1 fL 35.1-43.9 [facility] Erythrocyte distribution width (RBC) [Ratio] 19.0 % 11.6-14.6 [facility] MCH (RBC) [Entitic mass] 30.3 pg 27.0-32.0 [facility] MCHC Auto (RBC) [Mass/Vol]Or dered By: Dr. Carrasco on 02-25-2022 MCHC (RBC) [Mass/Vol] 29.2 g/dL 32-36 [facility] No Panel InformationOrdered By: Dr. Carrasco on 02-25-2022 Estimated GFR (MDRD) Amer 33 mL/min >60 [facility] Comment on above: GFR Calc Estimated GFR (MDRD) Non-Af Amer 27 mL/min >60 [facility] Comment on above: Non- GFR Calc Immature Platelet Fraction 5.5 % 1.0-7.9 [facility] Comment on above: Low PLT + Low IPF kinney ggest a bone marrow production disorderLow PLT + high IPF suggests peripheral destruction(e.g.ITP, TTP, HIT, DIC, autoimmune) or bone marrow recoveryTrending of serial IPF measurements is recommended when evaluating for bone marrow responesValue above normal range indicates an increase in RBC cellular response from bone marrow. Immature Reticulocyte Fraction 18.90 % 3.00-15.90 [facility] Reticulocyte Count 4.10 % 0.5-1.5 [facility] Total Iron Binding Capacity 280 ug/dL 250-450 [facility] Platelets bldOrdered By: Dr. Carrasco on 02-25-2022 Platelets (Bld) [#/Vol] 86 10*3/uL 150-450 [facility] Serum or plasma calcium jamel urement (mass/volume)Ordered By: Dr. Carrasco on 02-25-2022 Calcium [Mass/Vol] 8.2 mg/dL 8.5-10.1 [facility] Serum or plasma creatinine m easurement (mass/volume)Ordered By: Dr. Carrasco on 02-25-2022 Creatinine [Mass/Vol] 2.50 mg/dL 0.70-1.30 [facility] Comment on above: The validity of the calculated GFR & GFRAA in patients over 70 years has not been determined. Clinical correlation is essential. Serum or plasma ferritin ahmet surement (mass/volume)Ordered By: Dr. Carrasco on 02-25-2022 Ferritin [Mass/Vol] 232 ng/mL 26-388 [facility] Serum or plasma urea nitroge n measurement (mass/volume)Ordered By: Dr. Carrasco on 02-25-2022 Urea nitrogen [Mass/Vol] 50 mg/dL 7-18 [facility] Thin prep Papanicolaou smear with manual screeningOrdered By: Dr. Carrasco on 02-25-2022 Thin prep Papanicolaou smear with manual screening 7 - [facility] Culture, urineOrdered By: Dr Truong Carrasco on 01-28-2022 Bacteria identified Cx Nom (U) Culture exhibits no growth. [facility] Basophil percentageOrdered B y: Dr. Carrasco on 01-25-2022 Basophil percentage 0-5 SEEN /hpf 0-5 [facility] Bilirubin Test strip Ql (U)O rdered By: Dr. Carrasco on 01-25-2022 Bilirubin Ql (U) Negative Negative [facility] Ketones Test strip Ql (U)Ord ered By: Dr. Carrasco on 01-25-2022 Ketones Ql (U) Negative Negative [facility] Mucus LM Ql (Urine sed)Order ed By: Dr. Carrasco on 01-25-2022 Mucus Ql (Urine sed) 0 SEEN /hpf [facility] Nitrite Test strip Ql (U)Ord ered By: Dr. Carrasco on 01-25-2022 Nitrite Ql (U) Negative Negative [facility] Protein Test strip Ql (U)Ord ered By: Dr. Carrasco on 01-25-2022 Protein Ql (U) 30 mg/dl Negative [facility] Squamous epithelial cells de tection in urine sediment by light microscopyOrdered By: Dr. Carrasco on 01-25-2022 Epithelial cells.squamous LM Ql (Urine sed) 0 SEEN /hpf 0-5 [facility] Urine blood detectionOrdered By: Dr. Carrasco on 01-25-2022 RBC Ql (U) 250 /ul Negative [facility] RBC Ql (U) 10-25 SEEN /hpf 0-5 [facility] [facility] Urine clarityOrdered By: Dr. Carrasco on 01-25-2022 Clarity (U) Clear Clear [facility] Urine color determinationOrd ered By: Dr. Carrasco on 01-25-2022 Color (U) Yellow Yellow [facility] Urine glucose detectionOrder ed By: Dr. Carrasco on 01-25-2022 Glucose Ql (U) Normal mg/dl Normal [facility] Urine leukocyte esterase det ection by dipstickOrdered By: Dr. Carrasco on 01-25-2022 Leukocyte esterase Test strip Ql (U) Negative Negative [facility] Urine pHOrdered By: Dr. Connie leon on 01-25-2022 pH (U) 5.0 [pH] 5.0 - 8.0 [facility] Urine sediment bacteria coun t by microscopy (number/high power field)Ordered By: Dr. Carrasco on 01-25-2022 Bacteria LM.HPF (Urine sed) [#/Area] 0 /[HPF] None Seen [facility] Urine specific gravity measu rementOrdered By: Dr. Carrasco on 01-25-2022 Specific gravity (U) [Rel density] 1.015 1.002-1.030 [facility] Urobilinogen Auto test strip Ql (U)Ordered By: Dr. Carrasco on 01-25-2022 Urobilinogen Ql (U) Normal mg/dl Normal [facility] Basophil percentageOrdered B y: Sherry Ahn on 01-21-2022 Bilirubin [Mass/Vol] 0.50 mg/dL 0.20-1.00 [facility] Comment on above: For patients on eltr ombopag therapy, use of Dimension [place] TBIL is not recommended. Chloride [Moles/Vol] 103 mmol/L 98-107 [facility] Glucose [Mass/Vol] 111 mg/dL 74-106 [facility] Comment on above: Fasting Glucose resu lt from 100 to 125 mg/dL suggests IMPAIRED HOMEOSTASIS per A.D.A. criteria. Potassium [Moles/Vol] 3.7 mmol/L 3.5-5.1 [facility] Protein [Mass/Vol] 6.8 g/dL 6.4-8.2 [facility] Sodium [Moles/Vol] 140 mmol/L 136-145 [facility] Laboratory - Chemistry and C hemistry - challengeOrdered By: Sherry Ahn on 01-21-2022 ALP [Catalytic activity/Vol] 155 U/L 45-117 [facility] ALT [Catalytic activity/Vol] 18 U/L 16-61 [facility] CO2 [Moles/Vol] 29.0 mmol/L 21.0-32.0 [facility] Globulin (S) [Mass/Vol] 4.3 g/dL 2.2-4.2 [facility] Urea nitrogen/Creatinine [Mass ratio] 12.2 mg/mg 10-20 [facility] No Panel InformationOrdered By: Sherry Ahn on 01-21-2022 Estimated GFR (MDRD) Amer 27 mL/min >60 [facility] Comment on above: GFR Calc Estimated GFR (MDRD) Non-Af Amer 23 mL/min >60 [facility] Comment on above: Non- GFR Calc Serum or plasma albumin jamel urement (mass/volume)Ordered By: Sherry Ahn on 01-21-2022 Albumin [Mass/Vol] 2.5 g/dL 3.2-5.0 [facility] Serum or plasma albumin/glob ulin mass ratioOrdered By: Sherry Ahn on 01-21-2022 Albumin/Globulin [Mass ratio] 0.6 {ratio} 0.9-2.4 [facility] Serum or plasma calcium jamel urement (mass/volume)Ordered By: Sherry Ahn on 01-21-2022 Calcium [Mass/Vol] 8.2 mg/dL 8.5-10.1 [facility] Serum or plasma creatinine m easurement (mass/volume)Ordered By: Sherry Ahn on 01-21-2022 Creatinine [Mass/Vol] 2.94 mg/dL 0.70-1.30 [facility] Comment on above: The validity of the calculated GFR & GFRAA in patients over 70 years has not been determined. Clinical correlation is essential. Serum or plasma urea nitroge n measurement (mass/volume)Ordered By: Sherry Ahn on 01-21-2022 Urea nitrogen [Mass/Vol] 36 mg/dL -18 [facility] Thin prep Papanicolaou smear with manual screeningOrdered By: Sherry Ahn on 01-21-2022 Thin prep Papanicolaou smear with manual screening 22 U/L 37 [facility] Thin prep Papanicolaou smear with manual screening 8 5-15 [facility] Whole blood hemoglobin A1c/t otal hemoglobin ratio (mass fraction)Ordered By: Sherry Ahn on 01-21-2022 HbA1c (Bld) [Mass fraction] 5.9 % 3.8-5.6 [facility] Comment on above: Normal < 5.7 % Predi abetic 5.7 - 6.4 % Diabetic >or= 6.5 % Please note range changes. Absolute lymphocyte countOrd ered By: Dr. Carrasco on 01-06-2022 Lymphocytes Auto (Unsp spec) [#/Vol] 2.01 10*3/uL 0.83-4.51 [facility] Basophil percentageOrdered B y: Dr. Carrasco on 01-06-2022 Basophils/100 WBC (Bld) 0.2 % 0-1 [facility] Eosinophils/100 WBC (Bld) 0.2 % 0-5 [facility] Neutrophils (Bld) [#/Vol] 4.1 10*3/uL 2.0-7.7 [facility] Neutrophils/100 WBC (Bld) 61.0 % 47-70 [facility] WBC (Bld) [#/Vol] 6.6 10*3/uL 4.4-11.0 [facility] Basophil percentageOrdered B y: Tc Subramanian on 01-06-2022 Chloride [Moles/Vol] 101 mmol/L 98-107 [facility] Glucose [Mass/Vol] 110 mg/dL 74-106 [facility] Comment on above: Fasting Glucose resu lt from 100 to 125 mg/dL suggests IMPAIRED HOMEOSTASIS per A.D.A. criteria. Potassium [Moles/Vol] 5.0 mmol/L 3.5-5.1 [facility] Sodium [Moles/Vol] 135 mmol/L 136-145 [facility] Blood erythrocytes count (nu mber/volume)Ordered By: Dr. Carrasco on 01-06-2022 RBC (Bld) [#/Vol] 3.62 10*6/uL 4.6-6.2 [facility] Blood hemoglobin measurement (mass/volume)Ordered By: Dr. Carrasco on 01-06-2022 Hemoglobin (Bld) [Mass/Vol] 10.3 g/dL 13.0-16.5 [facility] Blood lymphocytes/100 leukoc ytesOrdered By: Dr. Carrasco on 01-06-2022 Lymphocytes/100 WBC (Bld) 30.4 % 19-41 [facility] Blood monocytes/100 leukocyt esOrdered By: Dr. Carrasco on 01-06-2022 Monocytes/100 WBC (Bld) 7.7 % 0-10 [facility] Blood platelet mean volumeOr dered By: Dr. Carrasco on 01-06-2022 Platelet mean volume (Bld) [Entitic vol] 9.1 fL 6.2-12.0 [facility] Determination of erythrocyte mean corpuscular volume (MCV)Ordered By: Dr. Carrasco on 01-06-2022 MCV (RBC) [Entitic vol] 90.6 fL 80-94 [facility] Hematocrit Auto (Bld) [Volum e fraction]Ordered By: Dr. Carrasco on 01-06-2022 Hematocrit (Bld) [Volume fraction] 32.8 % 40-54 [facility] Laboratory - Chemistry and C hemistry - challengeOrdered By: Tc Subramanian on 01-06-2022 CO2 [Moles/Vol] 28.0 mmol/L 21.0-32.0 [facility] Urea nitrogen/Creatinine [Mass ratio] 17.6 mg/mg 10-20 [facility] Laboratory - Hematology and Cell countsOrdered By: Dr. Carrasco on 01-06-2022 Erythrocyte distribution width (RBC) [Entitic vol] 47.0 fL 35.1-43.9 [facility] Erythrocyte distribution width (RBC) [Ratio] 14.4 % 11.6-14.6 [facility] Immature granulocytes/100 WBC (Bld) 0.500 % 0.0-0.9 [facility] Comment on above: IG% - Immature Granu locytes (promyelocytes, myelocytes and metamyelocytes) > 1% indicates that a LEFT SHIFT is Present. MCH (RBC) [Entitic mass] 28.5 pg 27.0-32.0 [facility] Nucleated RBC/100 WBC (Bld) [Ratio] 0.6 % 0-5 [facility] MCHC Auto (RBC) [Mass/Vol]Or dered By: Dr. Carrasco on 01-06-2022 MCHC (RBC) [Mass/Vol] 31.4 g/dL 32-36 [facility] No Panel InformationOrdered By: Tc Subramanian on 01-06-2022 Estimated GFR (MDRD) Amer 32 mL/min >60 [facility] Comment on above: GFR Calc Estimated GFR (MDRD) Non-Af Amer 26 mL/min >60 [facility] Comment on above: Non- GFR Calc Platelets bldOrdered By: Dr. Carrasco on 01-06-2022 Platelets (Bld) [#/Vol] 187 10*3/uL 150-450 [facility] Serum or plasma calcium jamel urement (mass/volume)Ordered By: Tc Subramanian on 01-06-2022 Calcium [Mass/Vol] 8.3 mg/dL 8.5-10.1 [facility] Serum or plasma creatinine m easurement (mass/volume)Ordered By: Tc Subramanian on 01-06-2022 Creatinine [Mass/Vol] 2.56 mg/dL 0.70-1.30 [facility] Comment on above: The validity of the calculated GFR & GFRAA in patients over 70 years has not been determined. Clinical correlation is essential. Serum or plasma urea nitroge n measurement (mass/volume)Ordered By: Tc Subramanian on 01-06-2022 Urea nitrogen [Mass/Vol] 45 mg/dL 7-18 [facility] Thin prep Papanicolaou smear with manual screeningOrdered By: Tc Subramanian on 01-06-2022 Thin prep Papanicolaou smear with manual screening 6 5-15 [facility] Absolute lymphocyte countOrd ered By: Dr. Asencio on 12-28-2021 Lymphocytes Auto (Unsp spec) [#/Vol] 2.01 10*3/uL 0.83-4.51 [facility] Basophil percentageOrdered B y: Dr. Asencio on 12-28-2021 Basophil percentage 0-5 SEEN /hpf 0-5 [facility] Basophils/100 WBC (Bld) 0.2 % 0-1 [facility] Bilirubin [Mass/Vol] 0.40 mg/dL 0.20-1.00 [facility] Comment on above: For patients on eltr ombopag therapy, use of Dimension [place] TBIL is not recommended. Chloride [Moles/Vol] 101 mmol/L 98-107 [facility] Eosinophils/100 WBC (Bld) 0.0 % 0-5 [facility] Glucose [Mass/Vol] 166 mg/dL 74-106 [facility] Comment on above: Fasting Glucose resu lt greater than or equal to 126 mg/dL suggests DIABETES MELLITUS per A.D.A. criteria. Neutrophils (Bld) [#/Vol] 3.4 10*3/uL 2.0-7.7 [facility] Neutrophils/100 WBC (Bld) 59.2 % 47-70 [facility] Potassium [Moles/Vol] 4.4 mmol/L 3.5-5.1 [facility] Protein [Mass/Vol] 7.3 g/dL 6.4-8.2 [facility] Sodium [Moles/Vol] 134 mmol/L 136-145 [facility] WBC (Bld) [#/Vol] 5.7 10*3/uL 4.4-11.0 [facility] Bilirubin Test strip Ql (U)O rdered By: Dr. Asencio on 12-28-2021 Bilirubin Ql (U) Negative Negative [facility] Blood erythrocytes count (nu mber/volume)Ordered By: Dr. Asencio on 12-28-2021 RBC (Bld) [#/Vol] 3.95 10*6/uL 4.6-6.2 [facility] Blood hemoglobin measurement (mass/volume)Ordered By: Dr. Asencio on 12-28-2021 Hemoglobin (Bld) [Mass/Vol] 11.1 g/dL 13.0-16.5 [facility] Blood lymphocytes/100 leukoc ytesOrdered By: Dr. Asencio on 12-28-2021 Lymphocytes/100 WBC (Bld) 35.1 % 19-41 [facility] Blood monocytes/100 leukocyt esOrdered By: Dr. Asencio on 12-28-2021 Monocytes/100 WBC (Bld) 5.2 % 0-10 [facility] Blood platelet mean volumeOr dered By: Dr. Asencio on 12-28-2021 Platelet mean volume (Bld) [Entitic vol] 9.8 fL 6.2-12.0 [facility] Determination of erythrocyte mean corpuscular volume (MCV)Ordered By: Dr. Asencio on 12-28-2021 MCV (RBC) [Entitic vol] 86.3 fL 80-94 [facility] Hematocrit Auto (Bld) [Volum e fraction]Ordered By: Dr. Asencio on 12-28-2021 Hematocrit (Bld) [Volume fraction] 34.1 % 40-54 [facility] Ketones Test strip Ql (U)Ord ered By: Dr. Asencio on 12-28-2021 Ketones Ql (U) Negative Negative [facility] Laboratory - Chemistry and C hemistry - challengeOrdered By: Dr. Asencio on 12-28-2021 ALP [Catalytic activity/Vol] 73 U/L 45-117 [facility] ALT [Catalytic activity/Vol] 18 U/L 16-61 [facility] CO2 [Moles/Vol] 25.0 mmol/L 21.0-32.0 [facility] Globulin (S) [Mass/Vol] 4.5 g/dL 2.2-4.2 [facility] Urea nitrogen/Creatinine [Mass ratio] 12.8 mg/mg 10-20 [facility] Laboratory - Hematology and Cell countsOrdered By: Dr. Asencio on 12-28-2021 Erythrocyte distribution width (RBC) [Entitic vol] 43.4 fL 35.1-43.9 [facility] Erythrocyte distribution width (RBC) [Ratio] 13.7 % 11.6-14.6 [facility] Immature granulocytes/100 WBC (Bld) 0.300 % 0.0-0.9 [facility] Comment on above: IG% - Immature Granu locytes (promyelocytes, myelocytes and metamyelocytes) > 1% indicates that a LEFT SHIFT is Present. MCH (RBC) [Entitic mass] 28.1 pg 27.0-32.0 [facility] Nucleated RBC/100 WBC (Bld) [Ratio] 0 % 0-5 [facility] MCHC Auto (RBC) [Mass/Vol]Or dered By: Dr. Asencio on 12-28-2021 MCHC (RBC) [Mass/Vol] 32.6 g/dL 32-36 [facility] Mucus LM Ql (Urine sed)Order ed By: Dr. Asencio on 12-28-2021 Mucus Ql (Urine sed) 0 SEEN /hpf [facility] Nitrite Test strip Ql (U)Ord ered By: Dr. Asencio on 12-28-2021 Nitrite Ql (U) Negative Negative [facility] No Panel InformationOrdered By: Dr. Asencio on 12-28-2021 Estimated Creatinine Clearance Calc 27.92 ml/min [facility] Estimated GFR (MDRD) Amer 38 mL/min >60 [facility] Comment on above: GFR Calc Estimated GFR (MDRD) Non-Af Amer 32 mL/min >60 [facility] Comment on above: Non- GFR Calc Platelets bldOrdered By: Dr. Asencio on 12-28-2021 Platelets (Bld) [#/Vol] 109 10*3/uL 150-450 [facility] Protein Test strip Ql (U)Ord ered By: Dr. Asencio on 12-28-2021 Protein Ql (U) 100 mg/dl Negative [facility] Serum or plasma albumin jamel urement (mass/volume)Ordered By: Dr. Asencio on 12-28-2021 Albumin [Mass/Vol] 2.8 g/dL 3.2-5.0 [facility] Serum or plasma albumin/glob ulin mass ratioOrdered By: Dr. Asencio on 12-28-2021 Albumin/Globulin [Mass ratio] 0.6 {ratio} 0.9-2.4 [facility] Serum or plasma calcium jamel urement (mass/volume)Ordered By: Dr. Asencio on 12-28-2021 Calcium [Mass/Vol] 8.8 mg/dL 8.5-10.1 [facility] Serum or plasma creatinine m easurement (mass/volume)Ordered By: Dr. Asencio on 12-28-2021 Creatinine [Mass/Vol] 2.19 mg/dL 0.70-1.30 [facility] Comment on above: The validity of the calculated GFR & GFRAA in patients over 70 years has not been determined. Clinical correlation is essential. Serum or plasma urea nitroge n measurement (mass/volume)Ordered By: Dr. Asencio on 12-28-2021 Urea nitrogen [Mass/Vol] 28 mg/dL 7-18 [facility] Squamous epithelial cells de tection in urine sediment by light microscopyOrdered By: Dr. Asencio on 12-28-2021 Epithelial cells.squamous LM Ql (Urine sed) 0 SEEN /hpf 0-5 [facility] Thin prep Papanicolaou smear with manual screeningOrdered By: Dr. Asencio on 12-28-2021 Thin prep Papanicolaou smear with manual screening 21 U/L 15-37 [facility] Thin prep Papanicolaou smear with manual screening 8 5-15 [facility] Urine blood detectionOrdered By: Dr. Asencio on 12-28-2021 RBC Ql (U) 250 /ul Negative [facility] RBC Ql (U) 25-50 SEEN /hpf 0-5 [facility] Urine clarityOrdered By: Dr. Asencio on 12-28-2021 Clarity (U) Cloudy Clear [facility] Urine color determinationOrd ered By: Dr. Asencio on 12-28-2021 Color (U) Red Yellow [facility] Urine glucose detectionOrder ed By: Dr. Asencio on 12-28-2021 Glucose Ql (U) 50 mg/dl Normal [facility] Urine leukocyte esterase det ection by dipstickOrdered By: Dr. Asencio on 12-28-2021 Leukocyte esterase Test strip Ql (U) 25 /ul Negative [facility] Urine pHOrdered By: Dr. Anastasia forbes on 12-28-2021 pH (U) 6.5 [pH] 5.0 - 8.0 [facility] Urine sediment bacteria coun t by microscopy (number/high power field)Ordered By: Dr. Asencio on 12-28-2021 Bacteria LM.HPF (Urine sed) [#/Area] 0 /[HPF] None Seen [facility] Urine specific gravity measu rementOrdered By: Dr. Asencio on 12-28-2021 Specific gravity (U) [Rel density] 1.015 1.002-1.030 [facility] Urobilinogen Auto test strip Ql (U)Ordered By: Dr. Asencio on 12-28-2021 Urobilinogen Ql (U) Normal mg/dl Normal [facility] Absolute lymphocyte countOrd ered By: Dr. Carrasco on 12-22-2021 Lymphocytes Auto (Unsp spec) [#/Vol] 3.71 10*3/uL 0.83-4.51 [facility] Basophil percentageOrdered B y: Dr. Carrasco on 12-22-2021 Basophils/100 WBC (Bld) 0.3 % 0-1 [facility] Eosinophils/100 WBC (Bld) 0.2 % 0-5 [facility] Neutrophils (Bld) [#/Vol] 2.2 10*3/uL 2.0-7.7 [facility] Neutrophils/100 WBC (Bld) 34.6 % 47-70 [facility] WBC (Bld) [#/Vol] 6.4 10*3/uL 4.4-11.0 [facility] Blood erythrocytes count (nu mber/volume)Ordered By: Dr. Carrasco on 12-22-2021 RBC (Bld) [#/Vol] 4.25 10*6/uL 4.6-6.2 [facility] Blood hemoglobin measurement (mass/volume)Ordered By: Dr. Carrasco on 12-22-2021 Hemoglobin (Bld) [Mass/Vol] 12.3 g/dL 13.0-16.5 [facility] Blood lymphocytes/100 leukoc ytesOrdered By: Dr. Carrasco on 12-22-2021 Lymphocytes/100 WBC (Bld) 58.1 % 19-41 [facility] Blood monocytes/100 leukocyt esOrdered By: Dr. Carrasco on 12-22-2021 Monocytes/100 WBC (Bld) 6.6 % 0-10 [facility] Blood platelet mean volumeOr dered By: Dr. Carrasco on 12-22-2021 Platelet mean volume (Bld) [Entitic vol] 9.2 fL 6.2-12.0 [facility] Determination of erythrocyte mean corpuscular volume (MCV)Ordered By: Dr. Carrasco on 12-22-2021 MCV (RBC) [Entitic vol] 90.1 fL 80-94 [facility] Hematocrit Auto (Bld) [Volum e fraction]Ordered By: Dr. Carrasco on 12-22-2021 Hematocrit (Bld) [Volume fraction] 38.3 % 40-54 [facility] Laboratory - Hematology and Cell countsOrdered By: Dr. Carrasco on 12-22-2021 Erythrocyte distribution width (RBC) [Entitic vol] 47.0 fL 35.1-43.9 [facility] Erythrocyte distribution width (RBC) [Ratio] 14.2 % 11.6-14.6 [facility] Immature granulocytes/100 WBC (Bld) 0.200 % 0.0-0.9 [facility] Comment on above: IG% - Immature Granu locytes (promyelocytes, myelocytes and metamyelocytes) > 1% indicates that a LEFT SHIFT is Present. MCH (RBC) [Entitic mass] 28.9 pg 27.0-32.0 [facility] Nucleated RBC/100 WBC (Bld) [Ratio] 0 % 0-5 [facility] MCHC Auto (RBC) [Mass/Vol]Or dered By: Dr. Carrasco on 12-22-2021 MCHC (RBC) [Mass/Vol] 32.1 g/dL 32-36 [facility] Platelets bldOrdered By: Dr. Carrasco on 12-22-2021 Platelets (Bld) [#/Vol] 137 10*3/uL 150-450 [facility] Basophil percentageon 2021 Bilirubin [Mass/Vol] 0.40 mg/dL 0.20-1.00 [facility] Work Phone: Comment on above: For patients on eltr ombopag therapy, use of Dimension [place] TBIL is not recommended. Chloride [Moles/Vol] 99 mmol/L 98-107 [facility] Work Phone: Glucose [Mass/Vol] 172 mg/dL 74-106 [facility] Work Phone: Comment on above: Fasting Glucose resu lt greater than or equal to 126 mg/dL suggests DIABETES MELLITUS per A.D.A. criteria. Potassium [Moles/Vol] 4.5 mmol/L 3.5-5.1 [facility] Work Phone: Protein [Mass/Vol] 7.2 g/dL 6.4-8.2 [facility] Work Phone: Sodium [Moles/Vol] 133 mmol/L 136-145 [facility] Work Phone: WBC (Bld) [#/Vol] 6.3 10*3/uL 4.4-11.0 [facility] Work Phone: Blood erythrocytes count (nu mber/volume)on 09-23-2021 RBC (Bld) [#/Vol] 4.97 10*6/uL 4.6-6.2 [facility] Work Phone: Blood hemoglobin measurement (mass/volume)on 09-23-2021 Hemoglobin (Bld) [Mass/Vol] 15.3 g/dL 13.0-16.5 [facility] Work Phone: Blood platelet mean volumeon 09-23-2021 Platelet mean volume (Bld) [Entitic vol] 8.8 fL 6.2-12.0 [facility] Work Phone: Determination of erythrocyte mean corpuscular volume (MCV)on 09-23-2021 MCV (RBC) [Entitic vol] 93.2 fL 80-94 [facility] Work Phone: Hematocrit Auto (Bld) [Volum e fraction]on 09-23-2021 Hematocrit (Bld) [Volume fraction] 46.3 % 40-54 [facility] Work Phone: Laboratory - Chemistry and C hemistry - challengeon 09-23-2021 ALP [Catalytic activity/Vol] 71 U/L 45-117 [facility] Work Phone: [phone] ALT [Catalytic activity/Vol] 29 U/L 16-61 [facility] Work Phone: CO2 [Moles/Vol] 27.0 mmol/L 21.0-32.0 [facility] Work Phone: Globulin (S) [Mass/Vol] 3.8 g/dL 2.2-4.2 [facility] Work Phone: Urea nitrogen/Creatinine [Mass ratio] 15.0 mg/mg 10-20 [facility] Work Phone: Laboratory - Hematology and Cell countson 09-23-2021 Erythrocyte distribution width (RBC) [Entitic vol] 44.2 fL 35.1-43.9 [facility] Work Phone: Erythrocyte distribution width (RBC) [Ratio] 12.9 % 11.6-14.6 [facility] Work Phone: MCH (RBC) [Entitic mass] 30.8 pg 27.0-32.0 [facility] Work Phone: MCHC Auto (RBC) [Mass/Vol]on 09-23-2021 MCHC (RBC) [Mass/Vol] 33.0 g/dL 32-36 [facility] Work Phone: No Panel Informationon 09-23 Estimated GFR (MDRD) Amer 82 mL/min >60 [facility] Work Phone: Comment on above: GFR Calc Estimated GFR (MDRD) Non-Af Amer 68 mL/min >60 [facility] Work Phone: Comment on above: Non- GFR Calc Prostate Specific Antigen Screen 0.43 ng/mL 0.00-4.00 [facility] Work Phone: Comment on above: This test was perfor med using the TPSA assay method for [employer] chemistry system. Values obtained with differentassay methods cannot be used interchangably.When changing PSA assays in the course of monitoring apatient, additional sequential testing should be carriedout to confirm baseline values. Platelets bldon 09-23-2021 Platelets (Bld) [#/Vol] 106 10*3/uL 150-450 [facility] Work Phone: Serum or plasma albumin jamel urement (mass/volume)on 09-23-2021 Albumin [Mass/Vol] 3.4 g/dL 3.2-5.0 [facility] Work Phone: Serum or plasma albumin/glob ulin mass ratioon 09-23-2021 Albumin/Globulin [Mass ratio] 0.9 {ratio} 0.9-2.4 [facility] Work Phone: Serum or plasma calcium jamel urement (mass/volume)on 09-23-2021 Calcium [Mass/Vol] 8.4 mg/dL 8.5-10.1 [facility] Work Phone: Serum or plasma creatinine m easurement (mass/volume)on 08-17-2022 Creatinine [Mass/Vol] 1.13 mg/dL 0.70-1.30 [facility] Work Phone: Comment on above: The validity of the calculated GFR & GFRAA in patients over 70 years has not been determined. Clinical correlation is essential. Serum or plasma urea nitroge n measurement (mass/volume)on 09-23-2021 Urea nitrogen [Mass/Vol] 17 mg/dL 7-18 [facility] Work Phone: Thin prep Papanicolaou smear with manual screeningon 09-23-2021 Thin prep Papanicolaou smear with manual screening 26 U/L 15-37 [facility] Work Phone: Thin prep Papanicolaou smear with manual screening 7 5-15 [facility] Work Phone: Culture, urine Bacteria identified Cx Nom (U) Culture exhibits no growth. [facility] Work Phone: Vital Signs Date Time Vital Sign Value Performing Clinician Facility 11-07-2024 22:45-0400 Diastolic blood pressure 111 mm[Hg] Dr. Padmini Carrasco MD Work Phone: [facility] 11-07-2024 22:45-0400 Heart rate 82 /min Dr. Padmini Carrasco MD Work Phone: [facility] 11-07-2024 22:45-0400 Respiratory rate 18 /min Dr. Padmini Carrasco MD Work Phone: [facility] 11-07-2024 22:45-0400 SaO2% (BldA) [Mass fraction] 94 % Dr. Padmini Carrasco MD Work Phone: [facility] 11-07-2024 22:45-0400 Systolic blood pressure 138 mm[Hg] Dr. Padmini Carrasco MD Work Phone: [facility] 11-07-2024 22:08-0400 Body height 167.[address] Padmini Carrasco MD Work Phone: [facility] 11-07-2024 22:08-0400 Body mass index (BMI) [Ratio] 23.2 kg/m2 Dr. Padmini Carrasco MD Work Phone: [facility] 11-07-2024 22:08-0400 Body weight 65.[address] Padmini Carrasco MD Work Phone: [facility] 11-07-2024 22:02-0400 Body temperature 36 [degF] Dr. Padmini Carrasco MD Work Phone: [facility] 11-07-2024 22:02-0400 Inhaled oxygen flow rate 8 L/min Dr. Padmini Carrasco MD Work Phone: [facility] 10-19-2024 07:47-0400 Body temperature 97.9 [degF] [facility] Work Phone: [facility] 10-19-2024 07:47-0400 Diastolic blood pressure 75 mm[Hg] [facility] Work Phone: [facility] 10-19-2024 07:47-0400 Heart rate 60 /min [facility] Work Phone: [facility] 10-19-2024 07:47-0400 Respiratory rate 16 /min [facility] Work Phone: [facility] 10-19-2024 07:47-0400 SaO2% (BldA) [Mass fraction] 97 % [facility] Work Phone: [facility] 10-19-2024 07:47-0400 Systolic blood pressure 130 mm[Hg] [facility] Work Phone: [facility] 10-16-2024 09:51-0400 Body temperature 98.4 [degF] Luigi Banks MD Work Phone: [facility] 10-16-2024 09:51-0400 Diastolic blood pressure 69 mm[Hg] Luigi Banks MD Work Phone: [facility] 10-16-2024 09:51-0400 Heart rate 60 /min Luigi Banks MD Work Phone: [facility] 10-16-2024 09:51-0400 Respiratory rate 16 /min Luigi Banks MD Work Phone: [facility] 10-16-2024 09:51-0400 SaO2% (BldA) [Mass fraction] 99 % Luigi Banks MD Work Phone: [facility] Comment on above: RA 10-16-2024 09:51-0400 Systolic blood pressure 115 mm[Hg] Luigi Banks MD Work Phone: [facility] 10-15-2024 08:45-0400 Body mass index (BMI) [Ratio] 23.66 kg/m2 Treatment [facility] Work Phone: [facility] 10-15-2024 08:45-0400 Body temperature 98.2 [degF] [facility] Work Phone: [facility] 10-15-2024 08:45-0400 Body weight 66.22 kg Treatment [facility]str Work Phone: [facility] 10-15-2024 08:45-0400 Diastolic blood pressure 72 mm[Hg] Treatment [facility]str Work Phone: [facility] 10-15-2024 08:45-0400 Heart rate 60 /min [facility] Work Phone: [facility] 10-15-2024 08:45-0400 Respiratory rate 18 /min Treatment [facility] Work Phone: [facility] 10-15-2024 08:45-0400 SaO2% (BldA) [Mass fraction] 95 % [facility] Work Phone: [facility] 10-15-2024 08:45-0400 Systolic blood pressure 125 mm[Hg] Treatment [facility]str Work Phone: [facility] 10-12-2024 10:20-0400 Body mass index (BMI) [Ratio] 23.82 kg/m2 Bob Otero Work Phone: [facility] 10-12-2024 10:20-0400 Body temperature 97.59 [degF] Bob Otero Work Phone: [facility] 10-12-2024 10:20-0400 Body weight 66.68 kg Bob Otero Work Phone: [facility] 10-12-2024 10:20-0400 Diastolic blood pressure 78 mm[Hg] Bob Otero Work Phone: [facility] 10-12-2024 10:20-0400 Heart rate 58 /min Bob Otero Work Phone: [facility] 10-12-2024 10:20-0400 SaO2% (BldA) [Mass fraction] 98 % Bob Otero Work Phone: [facility] 10-12-2024 10:20-0400 Systolic blood pressure 158 mm[Hg] Bob Otero Work Phone: [facility] 10-09-2024 09:54-0400 Body temperature 97.59 [degF] Luigi Banks MD Work Phone: [facility] 10-09-2024 09:54-0400 Diastolic blood pressure 63 mm[Hg] Luigi Banks MD Work Phone: [facility] 10-09-2024 09:54-0400 Heart rate 61 /min Luigi Banks MD Work Phone: [facility] 10-09-2024 09:54-0400 SaO2% (BldA) [Mass fraction] 97 % Luigi Banks MD Work Phone: [facility] 10-09-2024 09:54-0400 Systolic blood pressure 105 mm[Hg] Luigi Banks MD Work Phone: [facility] 10-02-2024 10:09-0400 Body temperature 98.2 [degF] Luigi Banks MD Work Phone: [facility] 10-02-2024 10:09-0400 Diastolic blood pressure 74 mm[Hg] Luigi Banks MD Work Phone: [facility] 10-02-2024 10:09-0400 Heart rate 59 /min Luigi Banks MD Work Phone: [facility] 10-02-2024 10:09-0400 Respiratory rate 14 /min Luigi Banks MD Work Phone: [facility] 10-02-2024 10:09-0400 SaO2% (BldA) [Mass fraction] 100 % Luigi Banks MD Work Phone: [facility] 10-02-2024 10:09-0400 Systolic blood pressure 148 mm[Hg] Luigi Banks MD Work Phone: [facility] 09-28-2024 07:30-0400 Body temperature 98.91 [degF] Lab[facility] Work Phone: [facility] 09-28-2024 07:30-0400 Diastolic blood pressure 64 mm[Hg] [facility] Work Phone: [facility] 09-28-2024 07:30-0400 Heart rate 53 /min [facility] Work Phone: [facility] 09-28-2024 07:30-0400 SaO2% (BldA) [Mass fraction] 93 % [facility] Work Phone: [facility] 09-28-2024 07:30-0400 Systolic blood pressure 128 mm[Hg] [facility] Work Phone: [facility] 09-27-2024 10:24-0400 Diastolic blood pressure 63 mm[Hg] Treatment Wstr Work Phone: [facility] 09-27-2024 10:24-0400 Heart rate 54 /min Treatment [facility]str Work Phone: [facility] 09-27-2024 10:24-0400 SaO2% (BldA) [Mass fraction] 92 % Treatment [facility] Work Phone: [facility] 09-27-2024 10:24-0400 Systolic blood pressure 125 mm[Hg] Treatment Wstr Work Phone: [facility] 09-25-2024 10:20-0400 Body temperature 97.5 [degF] Luigi Banks MD Work Phone: [facility] 09-25-2024 10:20-0400 Diastolic blood pressure 66 mm[Hg] Luigi Banks MD Work Phone: [facility] 09-25-2024 10:20-0400 Heart rate 56 /min Luigi Banks MD Work Phone: [facility] 09-25-2024 10:20-0400 SaO2% (BldA) [Mass fraction] 94 % Luigi Banks MD Work Phone: [facility] 09-25-2024 10:20-0400 Systolic blood pressure 121 mm[Hg] Luigi Banks MD Work Phone: [facility] 09-24-2024 11:00-0400 Body height 167.3 cm Treatment [facility]str Work Phone: [facility] Comment on above: verified by Iris Diaz 09-24-2024 10:33-0400 Body mass index (BMI) [Ratio] 24.31 kg/m2 Treatment [facility] Work Phone: [facility] 09-24-2024 10:33-0400 Body temperature 96.91 [degF] Treatment [facility]str Work Phone: [facility] 09-24-2024 10:33-0400 Body weight 68.04 kg Treatment [facility]str Work Phone: [facility] 09-24-2024 10:33-0400 Diastolic blood pressure 74 mm[Hg] Treatment [facility]str Work Phone: [facility] 09-24-2024 10:33-0400 Heart rate 54 /min Treatment [facility]str Work Phone: [facility] 09-24-2024 10:33-0400 SaO2% (BldA) [Mass fraction] 94 % Treatment [facility]str Work Phone: [facility] 09-24-2024 10:33-0400 Systolic blood pressure 146 mm[Hg] Treatment [facility]str Work Phone: [facility] 09-21-2024 08:24-0400 Body height 167.[address] Padmini Carrasco MD Work Phone: [facility] 09-21-2024 08:24-0400 Body mass index (BMI) [Ratio] 25.8 kg/m2 Dr. Padmini Carrasco MD Work Phone: [facility] 09-21-2024 08:24-0400 Body temperature 96.7 [degF] Dr. Padmini Carrasco MD Work Phone: [facility] 09-21-2024 08:24-0400 Body weight 72.[address] Padmini Carrasco MD Work Phone: [facility] 09-21-2024 08:24-0400 Diastolic blood pressure 95 mm[Hg] Dr. Padmini Carrasco MD Work Phone: [facility] 09-21-2024 08:24-0400 Heart rate 53 /min Dr. Padmini Carrasco MD Work Phone: [facility] 09-21-2024 08:24-0400 Respiratory rate 14 /min Dr. Padmini Carrasco MD Work Phone: [facility] 09-21-2024 08:24-0400 SaO2% (BldA) [Mass fraction] 96 % Dr. Padmini Carrasco MD Work Phone: [facility] 09-21-2024 08:24-0400 Systolic blood pressure 154 mm[Hg] Dr. Padmini Carrasco MD Work Phone: [facility] 09-05-2024 14:11-0400 Body height 169 cm Lakeisha Dawkins DO Work Phone: [facility] 09-05-2024 14:11-0400 Body mass index (BMI) [Ratio] 24.22 kg/m2 Lakeisha Dawkins DO Work Phone: [facility] 09-05-2024 14:11-0400 Body temperature 97.7 [degF] Lakeisha Masci DO Work Phone: [facility] 09-05-2024 14:11-0400 Body weight 69.17 kg Lakeisha Masci DO Work Phone: [facility] 09-05-2024 14:11-0400 Diastolic blood pressure 69 mm[Hg] Lakeisha Masci DO Work Phone: [facility] 09-05-2024 14:11-0400 Heart rate 75 /min Lakeisha Masci DO Work Phone: [facility] 09-05-2024 14:11-0400 SaO2% (BldA) [Mass fraction] 93 % Lakeisha Hennyi DO Work Phone: [facility] 09-05-2024 14:11-0400 Systolic blood pressure 145 mm[Hg] Lakeisha Inmani DO Work Phone: [facility] 08-30-2024 08:13-0400 Body height 167.[address] Padmini Carrasco MD Work Phone: [facility] 08-30-2024 08:13-0400 Body mass index (BMI) [Ratio] 24.8 kg/m2 Dr. Padmini Carrasco MD Work Phone: [facility] 08-30-2024 08:13-0400 Body weight 69.[address] Padmini Carrasco MD Work Phone: [facility] 08-30-2024 08:13-0400 Diastolic blood pressure 61 mm[Hg] Dr. Padmini Carrasco MD Work Phone: [facility] 08-30-2024 08:13-0400 Heart rate 54 /min Dr. Padmini Carrasco MD Work Phone: [facility] 08-30-2024 08:13-0400 Respiratory rate 16 /min Dr. Padmini Carrasco MD Work Phone: [facility] 08-30-2024 08:13-0400 SaO2% (BldA) [Mass fraction] 93 % Dr. Padmini Carrasco MD Work Phone: [facility] 08-30-2024 08:13-0400 Systolic blood pressure 99 mm[Hg] Dr. Padmini Carrasco MD Work Phone: [facility] 08-29-2024 13:08-0400 Body mass index (BMI) [Ratio] 25.19 kg/m2 Stacy Gauthier MD Work Phone: [facility] 08-29-2024 13:08-0400 Body weight 70.76 kg Stacy Gauthier MD Work Phone: [facility] 08-16-2024 10:190400 Body height 167.6 cm Pst 1 [facility] 08-16-2024 10:19-0400 Body mass index (BMI) [Ratio] 25.26 kg/m2 Pst 1 [facility] 08-16-2024 10:19-0400 Body temperature 96.8 [degF] Pst 1 [facility] 08-16-2024 10:19-0400 Body weight 70.94 kg Pst 1 [facility] 08-16-2024 10:19-0400 Diastolic blood pressure 82 mm[Hg] Pst 1 [facility] 08-16-2024 10:19-0400 Heart rate 53 /min Pst 1 [facility] 08-16-2024 10:19-0400 Respiratory rate 16 /min Pst 1 [facility] 08-16-2024 10:19-0400 SaO2% (BldA) [Mass fraction] 99 % Pst 1 [facility] 08-16-2024 10:19-0400 Systolic blood pressure 138 mm[Hg] Pst 1 [facility] 08-02-2024 14:06-0400 Body height 167.6 cm Stacy Gauthier MD Work Phone: [facility] 08-02-2024 14:06-0400 Body mass index (BMI) [Ratio] 25.19 kg/m2 Stacy Gauthier MD Work Phone: [facility] 08-02-2024 14:06-0400 Body weight 70.76 kg Stacy Gauthier MD Work Phone: [facility] 08-02-2024 14:06-0400 Heart rate 65 /min Stacy Gauthier MD Work Phone: [facility] 08-02-2024 14:06-0400 SaO2% (BldA) [Mass fraction] 91 % Stacy Gauthier MD Work Phone: [facility] 07-26-2024 09:00-0400 Body height 167.6 cm Codey Christianson MD Work Phone: [facility] 07-26-2024 09:00-0400 Body mass index (BMI) [Ratio] 25.3 kg/m2 Codey Christianson MD Work Phone: [facility] 07-26-2024 09:00-0400 Body temperature 97.3 [degF] Codey Christianson MD Work Phone: [facility] 07-26-2024 09:00-0400 Body weight 71.1 kg Codey Christianson MD Work Phone: [facility] 07-26-2024 09:00-0400 Diastolic blood pressure 67 mm[Hg] Codey Christianson MD Work Phone: [facility] 07-26-2024 09:00-0400 Heart rate 50 /min Codey Christianson MD Work Phone: [facility] Comment on above: md notified 07-26-2024 09:00-0400 Respiratory rate 18 /min Codey Christianson MD Work Phone: [facility] 07-26-2024 09:00-0400 SaO2% (BldA) [Mass fraction] 97 % Codey Christianson MD Work Phone: [facility] 07-26-2024 09:00-0400 Systolic blood pressure 150 mm[Hg] Codey Christianson MD Work Phone: [facility] 06-28-2024 12:15-0400 Body temperature 98.4 [degF] Dr. Padmini Carrasco MD Work Phone: [facility] 06-28-2024 12:15-0400 Diastolic blood pressure 76 mm[Hg] Dr. Padmini Carrasco MD Work Phone: [facility] 06-28-2024 12:15-0400 Heart rate 64 /min Dr. Padmini Carrasco MD Work Phone: 9(066)459-582254 [place] [address] 06-28-2024 12:15-0400 Inhaled oxygen flow rate 2 L/min Dr. Padmini Carrasco MD Work Phone: 5(413)114-033054 [place] [address] 06-28-2024 12:15-0400 Respiratory rate 18 /min Dr. Padmini Carrasco MD Work Phone: 0(296)318-787254 [place] [address] 06-28-2024 12:15-0400 SaO2% (BldA) [Mass fraction] 94 % Dr. Padmini Carrasco MD Work Phone: 0(546)664-588754 [place] [address] 06-28-2024 12:15-0400 Systolic blood pressure 152 mm[Hg] Dr. Padmini Carrasco MD Work Phone: 5(641)089-281954 [place] [address] 06-27-2024 15:48-0400 Body height 167.[address] Padmini Carrasco MD Work Phone: 2(546)517-712554 [place] [address] 06-27-2024 15:48-0400 Body mass index (BMI) [Ratio] 25.6 kg/m2 Dr. Padmini Carrasco MD Work Phone: 2(334)299-254554 [place] [address] 06-27-2024 15:48-0400 Body weight [address] Padmini Carrasco MD Work Phone: 7(191)425-769254 [place] [address] 06-27-2024 07:38-0400 Body temperature 97.8 [degF] Dr. Padmini Carrasco MD Work Phone: 0(715)139-219854 [place] [address] 06-27-2024 07:38-0400 Diastolic blood pressure 73 mm[Hg] Dr. Padmini Carrasco MD Work Phone: 0(570)632-333054 [place] [address] 06-27-2024 07:38-0400 Heart rate 56 /min Dr. Padmini Carrasco MD Work Phone: 7(665)259-221454 [place] [address] 06-27-2024 07:38-0400 Respiratory rate 16 /min Dr. Padmini Carrasco MD Work Phone: [facility] 06-27-2024 07:38-0400 SaO2% (BldA) [Mass fraction] 97 % Dr. Padmini Carrasco MD Work Phone: 4(810)901-067862 [place] [address] 06-27-2024 07:38-0400 Systolic blood pressure 173 mm[Hg] Dr. Padmini Carrasco MD Work Phone: 5(600)864-444662 [place] [address] 06-27-2024 06:57-0400 Body height 167.[address] Padmini Carrasco MD Work Phone: 4(580)131-452554 [place] [address] 06-27-2024 06:57-0400 Body mass index (BMI) [Ratio] 25.6 kg/m2 Dr. Padmini Carrasco MD Work Phone: 6(563)180-540954 [place] [address] 06-27-2024 06:57-0400 Body weight [address] Padmini Carrasco MD Work Phone: 9(328)917-818868 [address] 06-19-2024 15:38-0400 Diastolic blood pressure 72 mm[Hg] Dr. Padmini Carrasco MD Work Phone: 3(261)037-405854 [place] [address] 06-19-2024 15:38-0400 Systolic blood pressure 146 mm[Hg] Dr. Padmini Carrasco MD Work Phone: 1(904)010-172062 [place] [address] 06-19-2024 06:17-0400 Body height 167.[address] Padmini Carrasco MD Work Phone: 3(503)262-339162 [place] [address] 06-19-2024 06:17-0400 Body mass index (BMI) [Ratio] 25.7 kg/m2 Dr. Padmini Carrasco MD Work Phone: 7(896)407-934154 [place] [address] 06-19-2024 06:17-0400 Body weight 72.[address] Padmini Carrasco MD Work Phone: 3(357)820-370768 [address] 06-19-2024 06:17-0400 Diastolic blood pressure 77 mm[Hg] Dr. Padmini Carrasco MD Work Phone: [facility] 06-19-2024 06:17-0400 Heart rate 52 /min Dr. Padmini Carrasco MD Work Phone: [facility] 06-19-2024 06:17-0400 Respiratory rate 18 /min Dr. Padmini Carrasco MD Work Phone: [facility] 06-19-2024 06:17-0400 SaO2% (BldA) [Mass fraction] 94 % Dr. Padmini Carrasco MD Work Phone: [facility] 06-19-2024 06:17-0400 Systolic blood pressure 163 mm[Hg] Dr. Padmini Carrasco MD Work Phone: [facility] 05-17-2024 00:50-0400 Body temperature 97.9 [degF] Dr. Padmini Carrasco MD Work Phone: 0(399)707-595362 [place] [address] 05-17-2024 00:50-0400 Diastolic blood pressure 78 mm[Hg] Dr. Padmini Carrasco MD Work Phone: 6(857)416-265862 [place] [address] 05-17-2024 00:50-0400 Heart rate 66 /min Dr. Padmini Carrasco MD Work Phone: [facility] 05-17-2024 00:50-0400 Respiratory rate 20 /min Dr. Padmini Carrasco MD Work Phone: [facility] 05-17-2024 00:50-0400 SaO2% (BldA) [Mass fraction] 95 % Dr. Padmini Carrasco MD Work Phone: [facility] 05-17-2024 00:50-0400 Systolic blood pressure 164 mm[Hg] Dr. Padmini Carrasco MD Work Phone: [facility] 05-16-2024 22:09-0400 Body height 167.[address] Padmini Carrasco MD Work Phone: [facility] 05-16-2024 22:09-0400 Body mass index (BMI) [Ratio] 25.9 kg/m2 Dr. Padmini Carrasco MD Work Phone: [facility] 05-16-2024 22:09-0400 Body weight 73.[address] Padmini Carrasco MD Work Phone: [facility] 03-23-2024 08:03-0500 Body mass index (BMI) [Ratio] 25.8 kg/m2 Dr. Padmini Carrasco MD Work Phone: 9(312)357-252262 [place] [address] 03-23-2024 08:03-0500 Body temperature 97.2 [degF] Dr. Padmini Carrasco MD Work Phone: 7(424)949-400268 [address] 03-23-2024 08:03-0500 Body weight 72.[address] Padmini Carrasco MD Work Phone: 7(865)864-814468 [address] 03-23-2024 08:03-0500 Diastolic blood pressure 87 mm[Hg] Dr. Padmini Carrasco MD Work Phone: [facility] 03-23-2024 08:03-0500 Heart rate 57 /min Dr. Padmini Carrasco MD Work Phone: 8(587)600-926062 [place] [address] 03-23-2024 08:03-0500 Respiratory rate 18 /min Dr. Padmini Carrasco MD Work Phone: 9(646)942-514362 [place] [address] 03-23-2024 08:03-0500 SaO2% (BldA) [Mass fraction] 98 % Dr. Padmini Carrasco MD Work Phone: [facility] 03-23-2024 08:03-0500 Systolic blood pressure 145 mm[Hg] Dr. Padmini Carrasco MD Work Phone: [facility] 01-18-2024 14:11-0500 Body temperature 97.9 [degF] Dr. Padmini Carrasco MD Work Phone: [facility] 01-18-2024 14:11-0500 Diastolic blood pressure 69 mm[Hg] Dr. Padmini Carrasco MD Work Phone: [facility] 01-18-2024 14:11-0500 Heart rate 53 /min Dr. Padmini Carrasco MD Work Phone: [facility] 01-18-2024 14:11-0500 Respiratory rate 16 /min Dr. Padmini Carrasco MD Work Phone: [facility] 01-18-2024 14:11-0500 SaO2% (BldA) [Mass fraction] 94 % Dr. Padmini Carrasco MD Work Phone: [facility] 01-18-2024 14:11-0500 Systolic blood pressure 160 mm[Hg] Dr. Padmini Carrasco MD Work Phone: [facility] 01-18-2024 10:01-0500 Body height 167.[address] Padmini Carrasco MD Work Phone: [facility] 01-18-2024 10:01-0500 Body mass index (BMI) [Ratio] 25.2 kg/m2 Dr. Padmini Carrasco MD Work Phone: [facility] 01-18-2024 10:01-0500 Body weight [address] Padmini Carrasco MD Work Phone: [facility] 02-28-2023 10:06-0500 Diastolic blood pressure 80 mm[Hg] Dr. Ezekiel Carrasco Work Phone: [facility] 02-28-2023 10:06-0500 Systolic blood pressure 164 mm[Hg] Dr. Ezekiel Carrasco Work Phone: [facility] 02-28-2023 09:35-0500 Body height 167.[address] Ezekiel Carrasco Work Phone: [facility] 02-28-2023 09:35-0500 Body mass index (BMI) [Ratio] 24.5 kg/m2 Dr. Ezekiel Carrasco Work Phone: [facility] 02-28-2023 09:35-0500 Body weight 68.[address] Ezekiel Carrasco Work Phone: [facility] 02-28-2023 09:35-0500 Heart rate 54 /min Dr. Ezekiel Carrasco Work Phone: [facility] 02-28-2023 09:35-0500 Respiratory rate 18 /min Dr. Ezekiel Carrasco Work Phone: [facility] 02-28-2023 09:35-0500 SaO2% (BldA) [Mass fraction] 96 % Dr. Ezekiel Carrasco Work Phone: [facility] 01-27-2023 07:54-0500 Body mass index (BMI) [Ratio] 23.9 kg/m2 Dr. Ezekiel Carrasco Work Phone: [facility] 01-27-2023 07:54-0500 Body temperature 98 [degF] Dr. Ezekiel Carrasco Work Phone: [facility] 01-27-2023 07:54-0500 Body weight 67.[address] Ezekiel Carrasco Work Phone: [facility] 01-27-2023 07:54-0500 Diastolic blood pressure 77 mm[Hg] Dr. Ezekiel Carrasco Work Phone: [facility] 01-27-2023 07:54-0500 Heart rate 55 /min Dr. Ezekiel Carrasco Work Phone: [facility] 01-27-2023 07:54-0500 Respiratory rate 18 /min Dr. Ezekiel Carrasco Work Phone: [facility] 01-27-2023 07:54-0500 SaO2% (BldA) [Mass fraction] 99 % Dr. Ezekiel Carrasco Work Phone: [facility] 01-27-2023 07:54-0500 Systolic blood pressure 183 mm[Hg] Dr. Ezekiel Carrasco Work Phone: [facility] 12-27-2022 15:13-0500 Body temperature 98.2 [degF] Dr. Ezekiel Carrasco Work Phone: [facility] 12-27-2022 15:13-0500 Body weight 65.[address] Ezekiel Carrasco Work Phone: [facility] 12-27-2022 15:13-0500 Diastolic blood pressure 68 mm[Hg] Dr. Ezekiel Carrasco Work Phone: 1(671)171-563362 [place] [address] 12-27-2022 15:13-0500 Heart rate 58 /min Dr. Ezekiel Carrasco Work Phone: 7(831)050-762562 [place] [address] 12-27-2022 15:13-0500 Respiratory rate 16 /min Dr. Ezekiel Carrasco Work Phone: [facility] 12-27-2022 15:13-0500 SaO2% (BldA) [Mass fraction] 98 % Dr. Ezekiel Carrasco Work Phone: [facility] 12-27-2022 15:13-0500 Systolic blood pressure 151 mm[Hg] Dr. Ezekiel Carrasco Work Phone: 0(084)364-906862 [place] [address] 07-28-2022 10:32-0400 Body height 167.[address] Ezekiel Carrasco Work Phone: 0(817)594-252868 [address] 07-28-2022 10:31-0400 Body mass index (BMI) [Ratio] 23.3 kg/m2 Dr. Ezekiel Carrasco Work Phone: [facility] 07-28-2022 10:31-0400 Body temperature 97.6 [degF] Dr. Ezekiel Carrasco Work Phone: [facility] 07-28-2022 10:31-0400 Body weight 65.[address] Ezekiel Carrasco Work Phone: [facility] 07-28-2022 10:31-0400 Diastolic blood pressure 80 mm[Hg] Dr. Ezekiel Carrasco Work Phone: [facility] 07-28-2022 10:31-0400 Heart rate 84 /min Dr. Ezekiel Carrasco Work Phone: [facility] 07-28-2022 10:31-0400 Respiratory rate 18 /min Dr. Ezekiel Carrasco Work Phone: [facility] 07-28-2022 10:31-0400 SaO2% (BldA) [Mass fraction] 95 % Dr. Ezekiel Carrasco Work Phone: [facility] 07-28-2022 10:31-0400 Systolic blood pressure 138 mm[Hg] Dr. Ezekiel Carrasco Work Phone: [facility] 06-04-2022 08:37-0400 Body temperature 95.6 [degF] Dr. Ezekiel Carrasco Work Phone: [facility] 06-04-2022 08:37-0400 Diastolic blood pressure 74 mm[Hg] Dr. Ezekiel Carrasco Work Phone: [facility] 06-04-2022 08:37-0400 Heart rate 69 /min Dr. Ezekiel Carrasco Work Phone: [facility] 06-04-2022 08:37-0400 Respiratory rate 16 /min Dr. Ezekiel Carrasco Work Phone: [facility] 06-04-2022 08:37-0400 Systolic blood pressure 136 mm[Hg] Dr. Ezekiel Carrasco Work Phone: [facility] 05-21-2022 08:08-0400 Body temperature 97.1 [degF] Dr. Ezekiel Carrasco Work Phone: [facility] 05-21-2022 08:08-0400 Diastolic blood pressure 71 mm[Hg] Dr. Ezekiel Carrasco Work Phone: [facility] 05-21-2022 08:08-0400 Heart rate 73 /min Dr. Ezekiel Carrasco Work Phone: [facility] 05-21-2022 08:08-0400 Respiratory rate 16 /min Dr. Ezekiel Carrasco Work Phone: [facility] 05-21-2022 08:08-0400 Systolic blood pressure 133 mm[Hg] Dr. Ezekiel Carrasco Work Phone: [facility] 05-17-2022 14:02-0400 Body height 167.[address] Ezekiel Carrasco Work Phone: [facility] 05-17-2022 14:02-0400 Body mass index (BMI) [Ratio] 24.5 kg/m2 Dr. Ezekiel Carrasco Work Phone: [facility] 05-17-2022 14:02-0400 Body weight 68.[address] Ezekiel Carrasco Work Phone: 0(015)336-942962 [place] [address] 05-17-2022 14:02-0400 Diastolic blood pressure 74 mm[Hg] Dr. Ezekiel Carrasco Work Phone: [facility] 05-17-2022 14:02-0400 Heart rate 58 /min Dr. Ezekiel Carrasco Work Phone: [facility] 05-17-2022 14:02-0400 Respiratory rate 18 /min Dr. Ezekiel Carrasco Work Phone: [facility] 05-17-2022 14:02-0400 SaO2% (BldA) [Mass fraction] 96 % Dr. Ezekiel Carrasco Work Phone: [facility] 05-17-2022 14:02-0400 Systolic blood pressure 134 mm[Hg] Dr. Ezekiel Carrasco Work Phone: [facility] 05-14-2022 08:07-0400 Body temperature 96.4 [degF] Dr. Ezekiel Carrasco Work Phone: [facility] 05-14-2022 08:07-0400 Diastolic blood pressure 74 mm[Hg] Dr. Ezekiel Carrasco Work Phone: [facility] 05-14-2022 08:07-0400 Heart rate 72 /min Dr. Ezekiel Carrasco Work Phone: [facility] 05-14-2022 08:07-0400 Respiratory rate 18 /min Dr. Ezekiel Carrasco Work Phone: [facility] 05-14-2022 08:07-0400 Systolic blood pressure 129 mm[Hg] Dr. Ezekiel Carrasco Work Phone: [facility] 05-11-2022 12:39-0400 Body weight 66.[address] Ezekiel Carrasco Work Phone: [facility] 05-11-2022 12:39-0400 Heart rate 80 /min Dr. Ezekiel Carrasco Work Phone: [facility] 05-11-2022 12:39-0400 SaO2% (BldA) [Mass fraction] 96 % Dr. Ezekiel Carrasco Work Phone: [facility] 05-08-2022 00:43-0400 Inhaled oxygen flow rate 2 L/min Dr. Ezekiel Carrasco Work Phone: [facility] 05-07-2022 10:14-0400 Body temperature 96.6 [degF] Dr. Ezekiel Carrasco Work Phone: [facility] 05-07-2022 10:14-0400 Diastolic blood pressure 66 mm[Hg] Dr. Ezekiel Carrasco Work Phone: [facility] 05-07-2022 10:14-0400 Heart rate 67 /min Dr. Ezekiel Carrasco Work Phone: [facility] 05-07-2022 10:14-0400 Respiratory rate 16 /min Dr. Ezekiel Carrasco Work Phone: [facility] 05-07-2022 10:14-0400 Systolic blood pressure 129 mm[Hg] Dr. Ezekiel Carrasco Work Phone: [facility] 04-16-2022 14:11-0500 Inhaled oxygen flow rate 2 L/min Dr. Ezekiel Carrasco Work Phone: 8(635)547-164362 [place] [address] 03-30-2022 07:45-0500 Body height 167.[address] Ezekiel Carrasco Work Phone: 9(104)724-149654 [place] [address] 03-30-2022 07:45-0500 Body mass index (BMI) [Ratio] 23.7 kg/m2 Dr. Ezekiel Carrasco Work Phone: 9(422)012-378554 [place] [address] 03-30-2022 07:45-0500 Body temperature 97.6 [degF] Dr. Ezekiel Carrasco Work Phone: 8(999)279-120854 [place] [address] 03-30-2022 07:45-0500 Body weight 66.[address] Ezekiel Carrasco Work Phone: 0(431)886-798854 [place] [address] 03-30-2022 07:45-0500 Diastolic blood pressure 87 mm[Hg] Dr. Ezekiel Carrasco Work Phone: 0(903)615-529354 [place] [address] 03-30-2022 07:45-0500 Heart rate 107 /min Dr. Ezekiel Carrasco Work Phone: 1(217)850-977554 [place] [address] 03-30-2022 07:45-0500 Inhaled oxygen flow rate 2 L/min Dr. Ezekiel Carrasco Work Phone: 1(787)775-977254 [place] [address] 03-30-2022 07:45-0500 Respiratory rate 18 /min Dr. Ezekiel Carrasco Work Phone: 2(030)930-126054 [place] [address] 03-30-2022 07:45-0500 SaO2% (BldA) [Mass fraction] 99 % Dr. Ezekiel Carrasco Work Phone: 5(636)864-632654 [place] [address] 03-30-2022 07:45-0500 Systolic blood pressure 142 mm[Hg] Dr. Ezekiel Carrasco Work Phone: 7(961)001-738454 [place] [address] 03-29-2022 14:15-0500 Body mass index (BMI) [Ratio] 23.7 kg/m2 Dr. Ezekiel Carrasco Work Phone: [facility] 03-29-2022 14:15-0500 Body weight 66.[address] Ezekiel Carrasco Work Phone: [facility] 03-29-2022 14:15-0500 Diastolic blood pressure 64 mm[Hg] Dr. Ezekiel Carrasco Work Phone: [facility] 03-29-2022 14:15-0500 Heart rate 76 /min Dr. Ezekiel Carrasco Work Phone: [facility] 03-29-2022 14:15-0500 Inhaled oxygen flow rate 2 L/min Dr. Ezekiel Carrasco Work Phone: [facility] 03-29-2022 14:15-0500 Respiratory rate 20 /min Dr. Ezekiel Carrasco Work Phone: [facility] 03-29-2022 14:15-0500 SaO2% (BldA) [Mass fraction] 95 % Dr. Ezekiel Carrasco Work Phone: [facility] 03-29-2022 14:15-0500 Systolic blood pressure 107 mm[Hg] Dr. Ezekiel Carrasco Work Phone: [facility] 03-23-2022 14:03-0500 Body height 167.[address] Ezekiel Carrasco Work Phone: [facility] 03-23-2022 14:03-0500 Body mass index (BMI) [Ratio] 26.6 kg/m2 Dr. Ezekiel Carrasco Work Phone: [facility] 03-23-2022 14:03-0500 Body weight 74.[address] Ezekiel Carrasco Work Phone: [facility] 03-23-2022 14:03-0500 Diastolic blood pressure 73 mm[Hg] Dr. Ezekiel Carrasco Work Phone: [facility] 03-23-2022 14:03-0500 Heart rate 72 /min Dr. Ezekiel Carrasco Work Phone: [facility] 03-23-2022 14:03-0500 Respiratory rate 20 /min Dr. Ezekiel Carrasco Work Phone: [facility] 03-23-2022 14:03-0500 SaO2% (BldA) [Mass fraction] 94 % Dr. Ezekiel Carrasco Work Phone: [facility] 03-23-2022 14:03-0500 Systolic blood pressure 143 mm[Hg] Dr. Ezekiel Carrasco Work Phone: [facility] 03-22-2022 16:32-0500 Body mass index (BMI) [Ratio] 26.4 kg/m2 Dr. Ezekiel Carrasco Work Phone: [facility] 03-22-2022 16:32-0500 Body temperature 97.8 [degF] Dr. Ezekiel Carrasco Work Phone: [facility] 03-22-2022 16:32-0500 Body weight 74.[address] Ezekiel Carrasco Work Phone: [facility] 03-22-2022 16:32-0500 Diastolic blood pressure 87 mm[Hg] Dr. Ezekiel Carrasco Work Phone: [facility] 03-22-2022 16:32-0500 Heart rate 93 /min Dr. Ezekiel Carrasco Work Phone: [facility] 03-22-2022 16:32-0500 Inhaled oxygen flow rate 2 L/min Dr. Ezekiel Carrasco Work Phone: [facility] 03-22-2022 16:32-0500 Respiratory rate 20 /min Dr. Ezekiel Carrasco Work Phone: [facility] 03-22-2022 16:32-0500 SaO2% (BldA) [Mass fraction] 95 % Dr. Ezekiel Carrasco Work Phone: [facility] 03-22-2022 16:32-0500 Systolic blood pressure 145 mm[Hg] Dr. Ezekiel Carrasco Work Phone: [facility] 03-04-2022 16:23-0500 Inhaled oxygen flow rate 2 L/min Dr. Ezekiel Carrasco Work Phone: [facility] 03-04-2022 16:00-0500 Body temperature 98 [degF] Dr. Ezekiel Carrasco Work Phone: [facility] 03-04-2022 16:00-0500 Diastolic blood pressure 84 mm[Hg] Dr. Ezekiel Carrasco Work Phone: [facility] 03-04-2022 16:00-0500 Heart rate 90 /min Dr. Ezekiel Carrasco Work Phone: 6(979)803-095268 [address] 03-04-2022 16:00-0500 SaO2% (BldA) [Mass fraction] 94 % Dr. Ezekiel Carrasco Work Phone: [facility] 03-04-2022 16:00-0500 Systolic blood pressure 129 mm[Hg] Dr. Ezekiel Carrasco Work Phone: [facility] 03-04-2022 13:43-0500 SaO2% (BldA) [Mass fraction] 98 % Dr. Ezekiel Carrasco Work Phone: [facility] 03-04-2022 11:47-0500 Heart rate 83 /min Dr. Ezekiel Carrasco Work Phone: [facility] 03-04-2022 11:47-0500 Respiratory rate 18 /min Dr. Ezekiel Carrasco Work Phone: [facility] 03-04-2022 10:00-0500 Body temperature 97.6 [degF] Dr. Ezekiel Carrasco Work Phone: [facility] 03-04-2022 10:00-0500 Diastolic blood pressure 89 mm[Hg] Dr. Ezekiel Carrasco Work Phone: 2(056)933-749162 [place] [address] 03-04-2022 10:00-0500 Systolic blood pressure 139 mm[Hg] Dr. Ezekiel Carrasco Work Phone: [facility] 03-03-2022 13:50-0500 Body height 167.[address] Ezekiel Carrasco Work Phone: [facility] 03-03-2022 13:50-0500 Body weight 69.[address] Ezekiel Carrasco Work Phone: 8(182)273-307162 [place] [address] 03-03-2022 02:55-0500 Inhaled oxygen concentration 4 % Dr. Ezekiel Carrasco Work Phone: [facility] 03-02-2022 16:29-0500 Body mass index (BMI) [Ratio] 24.8 kg/m2 Dr. Ezekiel Carrasco Work Phone: 3(541)200-980162 [place] [address] 03-02-2022 16:06-0500 Body temperature 97.5 [degF] Dr. Ezekiel Carrasco Work Phone: 3(406)865-269762 [place] [address] 03-02-2022 16:06-0500 Diastolic blood pressure 88 mm[Hg] Dr. Ezekiel Carrasco Work Phone: 4(283)448-215462 [place] [address] 03-02-2022 16:06-0500 Heart rate 84 /min Dr. Ezekiel Carrasco Work Phone: [facility] 03-02-2022 16:06-0500 Inhaled oxygen flow rate 3 L/min Dr. Ezekiel Carrasco Work Phone: [facility] 03-02-2022 16:06-0500 Respiratory rate 26 /min Dr. Ezekiel Carrasco Work Phone: [facility] 03-02-2022 16:06-0500 SaO2% (BldA) [Mass fraction] 92 % Dr. Ezekiel Carrasco Work Phone: [facility] 03-02-2022 16:06-0500 Systolic blood pressure 125 mm[Hg] Dr. Ezekiel Carrasco Work Phone: 1(076)356-165462 [place] [address] 03-02-2022 09:04-0500 Body height 167.[address] Ezekiel Carrasco Work Phone: [facility] 03-02-2022 09:04-0500 Body mass index (BMI) [Ratio] 24.8 kg/m2 Dr. Ezekiel Carrasco Work Phone: [facility] 03-02-2022 09:04-0500 Body weight 69.[address] Ezekiel Carrasco Work Phone: [facility] 01-06-2022 08:31-0500 Body height 167.[address] Ezekiel Carrasco Work Phone: [facility] Work Phone: 01-06-2022 08:24-0500 Body mass index (BMI) [Ratio] 27.9 kg/m2 Dr. Ezekiel Carrasco Work Phone: [facility] 01-06-2022 08:24-0500 Body weight 78.[address] Ezekiel Carrasco Work Phone: [facility] 01-06-2022 08:24-0500 Diastolic blood pressure 78 mm[Hg] Dr. Ezekiel Carrasco Work Phone: [facility] 01-06-2022 08:24-0500 Heart rate 71 /min Dr. Ezekiel Carrasco Work Phone: [facility] 01-06-2022 08:24-0500 Respiratory rate 18 /min Dr. Ezekiel Carrasco Work Phone: [facility] 01-06-2022 08:24-0500 SaO2% (BldA) [Mass fraction] 94 % Dr. Ezekiel Carrasco Work Phone: [facility] 01-06-2022 08:24-0500 Systolic blood pressure 133 mm[Hg] Dr. Ezekiel Carrasco Work Phone: [facility] 12-28-2021 12:34-0500 Diastolic blood pressure 86 mm[Hg] [facility] 12-28-2021 12:34-0500 Heart rate 85 /min [facility] 12-28-2021 12:34-0500 Respiratory rate 18 /min [facility] 12-28-2021 12:34-0500 SaO2% (BldA) [Mass fraction] 97 % [facility] 12-28-2021 12:34-0500 Systolic blood pressure 175 mm[Hg] [facility] 12-28-2021 09:44-0500 Body height 167.64 cm [facility] Work Phone: 12-28-2021 09:44-0500 Body mass index (BMI) [Ratio] 25.9 kg/m2 [facility] 12-28-2021 09:44-0500 Body temperature 96.1 [degF] [facility] 12-28-2021 09:44-0500 Body weight 72.9 kg [facility] 07-07-2021 08:23-0400 Body height 167.[address] Ezekiel Carrasco Work Phone: [facility] Work Phone: 07-07-2021 08:23-0400 Body weight 80.[address] Ezekiel Carrasco Work Phone: [facility] Work Phone: 07-07-2021 08:23-0400 Diastolic blood pressure 83 mm[Hg] Dr. Ezekiel Carrasco Work Phone: [facility] Work Phone: 07-07-2021 08:23-0400 Heart rate 77 /min Dr. Ezekiel Carrasco Work Phone: [facility] Work Phone: 07-07-2021 08:23-0400 Respiratory rate 18 /min Dr. Ezekiel Carrasco Work Phone: [facility] Work Phone: 07-07-2021 08:23-0400 SaO2% (BldA) [Mass fraction] 96 % Dr. Ezekiel Carrasco Work Phone: [facility] Work Phone: 07-07-2021 08:23-0400 Systolic blood pressure 142 mm[Hg] Dr. Ezekiel Carrasco Work Phone: [facility] Work Phone: 09-18-2020 08:58-0400 Body mass index (BMI) [Ratio] 31.6 kg/m2 Dr. Ezekiel Carrasco Work Phone: [facility] Work Phone: Encounters Encounter Date Encounter Type Care Provider Facility Start: 11-18-2024 ambulatory Chet Francis ility:[facility] Start: 11-18-2024 End: 11-21-2024 Evaluation and management of inpatient Derrelljase Fonseca Facility:[facility] Start: 11-15-2024 ambulatory Padmini Leroy lity:[facility] Start: 11-07-2024 End: 11-11-2024 Evaluation and management of inpatient SUZANNE MEDLEY Facility:[facility] Start: 11-07-2024 End: 11-07-2024 Evaluation and management of inpatient Kamlesh Floyd DO -Intensive Care Unit Work Phone: Start: 11-07-2024 Non-patient / Non-visit Dr. Suzanne Medley MD -[facility] Work Phone: Start: 11-07-2024 End: 11-07-2024 Admission to same day surgery center Dr. Suzanne Medley MD -[facility] Start: 11-07-2024 End: 11-07-[address] Padmini Carrasco MD Work Phone: -[facility] Start: 10-26-2024 End: 10-26-2024 ambulatory PADMINI CARRASCO Facility:[facility] Start: 10-22-2024 End: 10-22-2024 ambulatory Luigi Banks MD Work Phone: Radiation Oncology Comment on above: Patient Education (D ischarge teaching-completed radiation) Start: 10-19-2024 End: 10-19-2024 ambulatory Lab/[place] [facility] Work Phone: Hematology/Oncology Comment on above: Malignant neoplasm o f urinary bladder, unspecified site (HCC) (Primary Dx) Start: 10-18-2024 End: 10-18-2024 ambulatory PADMINI CARRASCO Facility:[facility] Start: 10-17-2024 End: 10-17-2024 ambulatory PADMINI CARRASCO Facility:[facility] Start: 10-16-2024 End: 10-16-2024 Patient encounter procedure Luigi Banks MD Work Phone: Radiation Oncology Comment on above: 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) Start: 10-16-2024 End: 10-16-2024 ambulatory PADMINI CARRASCO Facility:[facility] Start: 10-15-2024 End: 10-15-2024 ambulatory Treatment Rm 6 Miguel A [facility] Work Phone: Hematology/Oncology Comment on above: Malignant neoplasm o f urinary bladder, unspecified site (HCC) (Primary Dx); Malignant neoplasm of overlapping sites of bladder (HCC) Start: 10-12-2024 End: 10-12-2024 Patient encounter procedure Bob Otero Work Phone: Hematology/Oncology Start: 10-12-2024 End: 10-12-2024 ambulatory Lab/[place] A [facility] Work Phone: Hematology/Oncology Comment on above: Malignant neoplasm o f prostate (HCC) (Primary Dx) Malignant neoplasm o f overlapping sites of bladder (HCC) (Primary Dx) Start: 10-11-2024 End: 10-11-2024 ambulatory PADMINI CARRASCO Facility:[facility] Start: 10-10-2024 End: 10-10-2024 [facility] Start: 10-09-2024 End: 10-09-2024 Patient encounter procedure Luigi Banks MD Work Phone: Radiation Oncology Comment on above: 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) Start: 10-09-2024 End: 10-09-2024 ambulatory Lab/[place] [facility] Work Phone: Hematology/Oncology Comment on above: Malignant neoplasm o f overlapping sites of bladder (HCC) Start: 10-05-2024 End: 10-05-2024 ambulatory Lab/[place] [facility] Work Phone: Hematology/Oncology Comment on above: 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) Start: 10-05-2024 End: 10-05-2024 ambulatory [place] Lynda CARRASCO Facility:[facility] Start: 10-04-2024 End: 10-04-2024 ambulatory [facility] Facility:[facility] Start: 10-03-2024 End: 10-03-2024 ambulatory [facility] Facility:[facility] Start: 10-02-2024 End: 10-02-2024 Patient encounter procedure Luigi Banks MD Work Phone: Radiation Oncology Comment on above: 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) Start: 10-02-2024 End: 10-02-2024 ambulatory [place] Lynda PABLOHARTSEL Facility:[facility] Start: 10-01-2024 End: 10-01-2024 ambulatory Lab/[place] [facility] Work Phone: Hematology/Oncology Comment on above: Malignant neoplasm o f overlapping sites of bladder (HCC) Start: 10-01-2024 End: 10-01-2024 ambulatory [place] Lynda CARRASCO Facility:[facility] Start: 09-28-2024 End: 09-28-2024 ambulatory Lab/[place] [facility] Work Phone: Hematology/Oncology Comment on above: Malignant neoplasm o f urinary bladder, unspecified site (HCC) (Primary Dx) Start: 09-27-2024 End: 09-27-2024 ambulatory [place] Lynda PABLOHARTSEL Facility:[facility] Start: 09-27-2024 End: 09-27-2024 ambulatory Treatment Rm 4 Miguel A [facility] Work Phone: Hematology/Oncology Comment on above: 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) Start: 09-26-2024 End: 09-26-2024 ambulatory PADMINI CARRASCO Facility:[facility] Start: 09-25-2024 End: 09-25-2024 Telephone encounter Wolf Crane RN Work Phone: Hematology/Oncology Comment on above: Care Coordination (C YCLE 1/DAY 1 POST TREATMENT CALL ) Start: 09-25-2024 End: 09-25-2024 Patient encounter procedure Luigi Banks MD Work Phone: Radiation Oncology Comment on above: 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) Start: 09-25-2024 End: 09-25-2024 ambulatory PADMINI CARRASCO Facility:[facility] Start: 09-24-2024 End: 09-24-2024 Orders Only Lakeisha Dawkins DO Work Phone: Hematology/Oncology Comment on above: Malignant neoplasm o f urinary bladder, unspecified site (HCC) (Primary Dx); Malignant neoplasm of overlapping sites of bladder (HCC) Opened In Error Appointment Start: 09-21-2024 End: 09-21-[address] Padmini Carrasco MD Work Phone: -Radiology [facility] Start: 09-21-2024 End: 09-21-[address] Lakeisha Dawkins DO -Radiology [facility] Work Phone: Start: 09-21-2024 End: 09-21-2024 ambulatory Lakeisha Dawkins Facility:[facility] Start: 09-18-2024 [facility] Start: 09-18-2024 End: 09-18-2024 Subsequent hospital visit by physician oRsibel [facility] (I-Stat) Work Phone: Cat Scan Comment on above: Malignant neoplasm o f urinary bladder, unspecified site (HCC) [C67.9] Start: 09-12-2024 End: 09-12-2024 ambulatory PADMINI CARRASCO Facility:[facility] Start: 09-07-2024 End: 09-19-2024 Patient encounter procedure Luigi Banks MD Work Phone: Radiation Oncology Start: 09-07-2024 End: 09-19-2024 Radiation Oncology Note Luigi Banks MD Work Phone: Radiation Oncology Comment on above: Simulation Note Treatment Planning Start: 09-07-2024 End: 09-07-2024 ambulatory [facility] Facility:[facility] Start: 09-07-2024 End: 09-07-2024 Subsequent hospital visit by physician [facility] Mob 2 Work Phone: Radiology Comment on above: Malignant neoplasm o f overlapping sites of bladder (HCC) [C67.8] Start: 09-07-2024 End: 09-07-2024 Nursing evaluation of patient and report Nurse Trang [facility] Work Phone: Radiation Oncology Comment on above: 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) Start: 09-07-2024 End: 09-07-2024 ambulatory [facility] Facility:[facility] Start: 09-06-2024 End: 09-06-2024 Telephone encounter Stacy Gauthier MD Work Phone: Urology Comment on above: Orders Start: 09-06-2024 End: 09-06-2024 ambulatory [facility] Facility:[facility] Start: 09-05-2024 End: 09-05-2024 Patient encounter procedure Lakeisha Dawkins DO Work Phone: Hematology/Oncology Start: 09-05-2024 End: 09-06-2024 Telephone encounter Matthew Gu RN Hematology/Oncology Comment on above: Hands Hanger - O ther (Introduction ) Results Start: 09-05-2024 End: 09-05-2024 ambulatory Lakeisha Dawkins DO Work Phone: Hematology/Oncology Comment on above: Malignant neoplasm o f urinary bladder, unspecified site (HCC) (Primary Dx) Start: 08-30-2024 End: 08-30-2024 Patient encounter procedure Farheen LUNDBERG -[facility] Work Phone: Start: 08-30-2024 End: 08-30-2024 Patient encounter status Farheen Johnson [facility] Start: 08-30-2024 End: 08-30-[address] Padmini Carrasco MD Work Phone: [facility] Start: 08-29-2024 End: 08-29-2024 Telephone encounter Codey Christianson MD Work Phone: Hematology/Oncology Comment on above: [facility] Hanger - O ther Start: 08-29-2024 End: 08-29-2024 Patient encounter procedure Stacy Gauthier MD Work Phone: Urology Comment on above: Malignant neoplasm o f urinary bladder, unspecified site (HCC) (Primary Dx); Hematuria, gross Start: 08-29-2024 End: 08-29-2024 ambulatory STACY GAUTHIER Facility:[facility] Start: 08-24-2024 End: 08-24-2024 Telephone encounter Farheen Sommers RN Hematology/Oncology Comment on above: CASE [id number] Update Start: 08-22-2024 End: 08-22-2024 Telephone encounter Farheen Sommers RN Hematology/Oncology Comment on above: CASE [id number] Discussion Start: 08-21-2024 End: 08-21-2024 Telephone encounter Stacy Gauthier MD Work Phone: Urology Comment on above: Surgical Followup; O rders Start: 08-21-2024 End: 08-21-2024 ambulatory STACY GAUTHIER Facility:[facility] Start: 08-16-2024 End: 08-16-2024 Admission to establishment [place] Acc 1 Pre Surgical Testing Start: 08-16-2024 End: 08-16-2024 [facility] Work [facility]: Start: 08-16-2024 End: 08-16-2024 ambulatory STACY GAUTHIER Pre Surgical Testing Comment on above: Preop testing (Prima ry Dx); 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knik heart without angina pectoris; Essential hypertension; Hyperlipidemia, [...] Start: 08-02-2024 End: 08-02-2024 ambulatory STACY GAUTHIER Facility:[facility] Start: 07-31-2024 End: 07-31-2024 ambulatory PADMINI CARRASCO Facility:[facility] Start: 07-31-2024 End: 07-31-2024 Subsequent hospital visit by physician Ct Prep [facility] Cat Scan Comment on above: Malignant neoplasm o f urinary bladder, unspecified site (HCC) [C67.9] Start: 07-26-2024 End: 07-26-2024 Chart abstracting Farheen Sommers RN Hematology/Oncology Start: 07-26-2024 End: 07-26-2024 ambulatory PADMINI CARRASCO Facility:[facility] Start: 07-26-2024 End: 07-26-2024 Patient encounter procedure Codey Christianson MD Work Phone: Hematology/Oncology Start: 07-26-2024 End: 07-26-2024 ambulatory Codey Christianson MD Work Phone: Hematology/Oncology Comment on above: Malignant neoplasm o f urinary bladder, unspecified site (HCC) (Primary Dx) Start: 07-09-2024 End: 07-09-[address] Padmini Carrasco MD Work Phone: [facility] Work Phone: Start: 07-09-2024 End: 07-09-[address] Padmini Carrasco MD -Laboratory [place] Work Phone: Start: 07-09-2024 End: 07-09-2024 ambulatory Padmini Carrasco Facility:[facility] Start: 06-27-2024 End: 06-28-2024 ambulatory Jose J Winston Facility:[facility] Start: 06-27-2024 End: 06-28-2024 Evaluation and management of inpatient Dr. Jose J Winston MD -Medical Surgical 3 Work Phone: Start: 06-27-2024 Admission to [facility] Dr. Jose J Winston MD -[place] Work Phone: Start: 06-21-2024 End: 06-21-[address] Padmini Carrasco MD Work Phone: [facility] Work Phone: Start: 06-21-2024 End: 06-21-[address] Jose J Winston MD -Laboratory Work Phone: Start: 06-21-2024 End: 06-21-2024 ambulatory Jose J Winston Facility:[facility] Start: 06-19-[address] Quin Carrasco MD Work Phone: [facility] Start: 06-19-2024 End: 06-19-2024 Patient encounter procedure Nito ACNUA [facility] Work Phone: Start: 06-19-2024 End: 06-19-2024 Patient encounter status Nito ACUNA [facility] Start: 06-19-2024 End: 06-19-[address] Padmini Carrasco MD Work Phone: [facility] Work Phone: Start: 05-28-2024 End: 05-28-[address] Jose J Winston MD -Laboratory, Specimen Work Phone: Start: 05-28-2024 End: 05-28-2024 ambulatory Jose J Winston Facility:[facility] Start: 05-16-2024 End: 05-17-2024 Emergency department patient visit Dr. Padmini Carrasco MD Work Phone: -Emergency Department Work Phone: Start: 05-10-2024 End: 05-10-[address] Padmini Carrasco MD Work Phone: [facility] Work Phone: Start: 05-10-2024 End: 05-10-[address] Padmini Carrasco MD -Laboratory, [facility] Start: 05-10-2024 End: 05-10-2024 ambulatory Padmini Carrasco Facility:[facility] Start: 03-23-2024 End: 03-23-2024 Patient encounter procedure Carmina Tee STATIONARY ENGINEER APPRENTICE-C -[facility] Work Phone: Start: 03-23-2024 End: 03-23-2024 ambulatory Carmina Tee STATIONARY ENGINEER APPRENTICE Facility:[facility] Start: 02-21-2024 End: 02-21-2024 Patient encounter procedure Carmina Tee STATIONARY ENGINEER APPRENTICE-C -[facility] Work Phone: Start: 02-21-2024 End: 02-21-2024 ambulatory Carmina Tee STATIONARY ENGINEER APPRENTICE Facility:[facility] Start: 02-02-2024 End: 02-02-[address] Marquise Barillas MD -[facility] Work Phone: Start: 02-02-2024 End: 02-02-2024 ambulatory Padmini Carrasco Facility:[facility] Start: 01-18-2024 Non-patient / Non-visit Dr. Alycia Barillas MD -[facility] Start: 01-18-2024 End: 01-18-2024 Admission to same day surgery center Dr. Marquise Barillas MD -Surgical Day Care Start: 01-18-2024 End: 01-18-2024 ambulatory Marquise Barillas Facility:[facility] Start: 04-29-2023 Non-patient / Non-visit Dr. Rambo Carrasco Work Phone: [facility] Work Phone: Start: 04-29-2023 Non-patient / Non-visit Dr. Rambo Carrasco Work Phone: [facility] Start: 04-29-2023 End: 04-29-[address] Ezekiel Carrasco Work Phone: [facility] Work Phone: Start: 04-29-2023 End: 04-29-[address] Ezekiel Carrasco Work Phone: [facility]-Cardiovascul ar Services Work Phone: Start: 02-28-2023 End: 02-28-[address] Ezekiel Carrasco Work Phone: [facility] Work Phone: Start: 02-28-2023 End: 02-28-[address] Ezekiel Carrasco Work Phone: [facility] Heart [facility] Work Phone: Start: 02-10-2023 End: 02-10-[address] Ezekiel Carrasco Work Phone: [facility] Work Phone: Start: 01-27-2023 End: 01-27-[address] Ezekiel Carrasco Work Phone: [facility]-Pulmonary Medicine [facility] Work Phone: Start: 12-27-2022 End: 12-27-[address] Ezekiel Carrasco Work Phone: [facility]-[place] [place] [facility] Work Phone: Start: 12-22-2022 Non-patient / Non-visit Dr. Rambo Carrasco Work Phone: [facility] Start: 12-22-2022 End: 12-22-[address] Ezekiel Carrasco Work Phone: [facility] Work Phone: Start: 12-22-2022 End: 12-22-[address] Ezekiel Carrasco Work Phone: [facility]-Cardiovascul ar Services Work Phone: Start: 12-15-2022 End: 12-15-2022 ambulatory [facility] Work Phone: Start: 12-15-2022 End: 12-15-2022 Patient encounter procedure [facility] Work Phone: Start: 12-14-2022 End: 12-14-2022 ambulatory [facility] Work Phone: Start: 12-14-2022 End: 12-14-2022 Patient encounter procedure [facility] Start: 08-16-2022 End: 08-16-[address] Ezekiel Carrasco Work Phone: [facility] Work Phone: Start: 08-16-2022 End: 08-16-[address] Ezekiel Carrasco Work Phone: [facility] Start: 07-28-2022 End: 07-28-[address] Ezekiel Carrasco Work Phone: [facility]-Pulmonary Medicine [facility] Work Phone: Start: 06-04-2022 Non-patient / Non-visit Dr. Rambo Carrasco Work Phone: [facility] Start: 06-04-2022 End: 06-04-[address] Ezekiel Carrasco Work Phone: [facility] Work Phone: Start: 06-04-2022 End: 06-04-[address] Ezekiel Carrasco Work Phone: [facility] Start: 05-28-2022 Non-patient / Non-visit Dr. Rambo Carrasco Work Phone: [facility] Start: 05-21-2022 Non-patient / Non-visit Dr. Rambo Carrasco Work Phone: [facility] Start: 05-21-[address] Dk Carrasco Work Phone: [facility] Start: 05-17-2022 End: 05-17-[address] Ezekiel Carrasco Work Phone: [facility] Work Phone: Start: 05-17-2022 End: 05-17-[address] Ezekiel Carrasco Work Phone: [facility]-Laboratory Start: 05-14-2022 Non-patient / Non-visit Dr. Rambo Carrasco Work Phone: [facility] Start: 05-14-[address] Dk Carrasco Work Phone: [facility] Start: 05-12-2022 Non-patient / Non-visit Dr. Rambo Carrasco Work Phone: [facility] Start: 05-11-2022 End: 05-11-[address] Ezekiel Carrasco Work Phone: [facility] Work Phone: Start: 05-11-2022 End: 05-11-[address] Ezekiel Carrasco Work Phone: [facility]-Pulmonary Services/Neurology Start: 05-07-2022 Non-patient / Non-visit Dr. Rambo Carrasco Work Phone: [facility] Start: 05-07-2022 End: 05-07-[address] Ezekiel Carrasco Work Phone: [facility] Work Phone: Start: 05-07-2022 End: 05-07-[address] [facility] Start: 05-03-2022 Non-patient / Non-visit Dr. Rambo Carrasco Work Phone: [facility] Start: 05-03-2022 End: 05-03-[address] Ezekiel Carrasco Work Phone: [facility] Work Phone: Start: 05-03-2022 End: 05-03-[address] Ezekiel Carrasco Work Phone: [facility]-Pulmonary Services/Neurology Start: 04-30-2022 Non-patient / Non-visit Dr. Rambo Carrasco Work Phone: [facility] Start: 04-23-2022 Non-patient / Non-visit Dr. Rambo Carrasco Work Phone: [facility] Start: 04-16-2022 Non-patient / Non-[facility] Start: 04-09-2022 Non-patient / Non-visit Dr. Rambo Carrasco Work Phone: [facility] Start: 04-09-[address] Dk Carrasco Work Phone: [facility] Start: 04-06-2022 End: 04-06-[address] Ezekiel Carrasco Work Phone: [facility] Work Phone: Start: 04-06-2022 End: 04-06-[address] Ezekiel Carrasco Work Phone: [facility] Start: 04-02-2022 End: 04-02-[address] Ezekiel Carrasco Work Phone: [facility] Work Phone: Start: 04-02-2022 End: 04-02-[address] Ezekiel Carrasco Work Phone: [facility]-Laboratory Start: 03-31-2022 Non-patient / Non-visit Dr. Rambo Carrasco Work Phone: [facility] Start: 03-31-2022 Non-patient / Non-visit Dr. Rambo Carrasco Work Phone: [facility] Start: 03-31-2022 Non-patient / Non-visit Dr. Rambo Carrasco Work Phone: [facility] Start: 03-31-2022 End: 03-31-[address] Ezekiel Carrasco Work Phone: [facility] Work Phone: Start: 03-31-2022 End: 03-31-[address] Ezekiel Carrasco Work Phone: [facility]-Cardiovascul ar Services Start: 03-30-2022 End: 03-30-[address] Ezekiel Carrasco Work Phone: [facility] Vascular Surgery Start: 03-30-2022 End: 03-30-[address] Ezekiel Carrasco Work Phone: [facility]-Pulmonary Medicine [facility] Start: 03-29-2022 End: 03-29-[address] Ezekiel Carrasco Work Phone: [facility] Work Phone: Start: 03-29-2022 End: 03-29-[address] Ezekiel Carrasco Work Phone: [facility] Heart [facility] Start: 03-23-2022 End: 03-23-[address] Ezekiel Carrasco Work Phone: [facility] Start: 03-22-2022 End: 03-22-2022 Emergency department patient visit Dr. Ezekiel Carrasco Work Phone: [facility]-Emergency Department Start: 03-18-2022 End: 03-18-[address] Ezekiel Carrasco Work Phone: [facility] Work Phone: Start: 03-18-2022 End: 03-18-[address] Ezekiel Carrasco Work Phone: [facility] Start: 03-10-2022 End: 03-10-[address] Ezekiel Carrasco Work Phone: [facility] Work Phone: Start: 03-10-2022 End: 03-10-[address] Ezekiel Carrasco Work Phone: [facility] Start: 03-04-2022 Non-patient / Non-visit Dr. Rambo Carrasco Work Phone: [facility] Inpatient Physicians Start: 03-03-2022 Non-patient / Non-visit Dr. Rambo Carrasco Work Phone: [facility] Inpatient Physicians Start: 03-02-2022 Non-patient / Non-visit Dr. Rambo Carrasco Work Phone: [facility] Inpatient Physicians Start: 03-02-2022 End: 03-04-2022 Evaluation and management of inpatient Dr. Ezekiel Carrasco Work Phone: [facility]-Progressive Care Unit Start: [address] Dk Carrasco Work Phone: [facility]-Physical Therapy Start: 02-25-2022 End: 02-25-[address] Ezekiel Carrasco Work Phone: [facility] Work Phone: Start: 02-25-2022 End: 02-25-[address] Ezekiel Carrasco Work Phone: [facility] Start: 02-03-2022 Orders Only Jamin hernandez MD Work Phone: Vascular Surg Dept Comment on above: Ruptured abdominal a ortic aneurysm (AAA), unspecified part (Primary Dx) Start: 01-25-2022 End: 01-25-[address] Ezekiel Carrasco Work Phone: [facility] Work Phone: Start: 01-25-2022 End: 01-25-[address] Ezekiel Carrasco Work Phone: [facility]-Laboratory, Specimen Start: 01-25-2022 Telephone encounter Holly cervantes MD Work Phone: Cardiology Comment on above: Surgical Followup Start: 01-21-2022 End: 01-21-[address] Ezekiel Carrasco Work Phone: [facility] Work Phone: Start: 01-21-2022 End: 01-21-[address] Ezekiel Carrasco Work Phone: [facility] Start: 01-06-2022 End: 01-06-[address] Ezekiel Carrasco Work Phone: [facility] Start: 01-06-2022 End: 01-06-[address] Ezekiel Carrasco Work Phone: [facility] Heart [facility] Start: 01-01-2022 Orders Only Jamin hernandez MD Work Phone: Vascular Surg Dept Comment on above: Abdominal aortic ane urysm (AAA) without rupture, unspecified part (Primary Dx); Edema of abdomen Appointment Start: 12-28-2021 ambulatory Venita Shah [facility] Work Phone: Critical Care Start: 12-28-2021 End: 12-28-2021 Emergency department patient visit [facility] [facility] Start: 12-22-2021 End: 12-22-2021 ambulatory [facility] Work Phone: Start: 12-22-2021 End: 12-22-2021 Patient encounter procedure [facility] Start: 09-23-2021 End: 09-23-[address] Ezekiel Carrasco Work Phone: [facility] Work Phone: Start: 09-23-2021 End: 09-23-[address] Ezekiel Carrasco Work Phone: [facility] Start: 08-20-2021 End: 08-20-[address] Ezekiel Carrasco Work Phone: [facility] Start: 07-07-2021 End: 07-07-[address] Ezekiel Carrasco Work Phone: [facility] Start: 05-11-2021 Telephone encounter Ezekiel Sepulveda MD Work Phone: Vascular Surg Dept Comment on above: Patient Update Start: 02-03-2021 Encounter for other preprocedural examination [facility] Start: 02-09-2019 Patient encounter status Dk Sepulveda MD Work Phone: [facility] Procedures Date Procedure Procedure Detail Performing Clinician Start: 11-07-[address] Horacio Carrasco MD Work Phone: Start: 11-07-2024 Plain chest X-ray Dr. Quin Carrasco MD Work Phone: Start: 11-07-2024 Serum inorganic phos phate measurement Dr. Padmini Carrasco MD Work Phone: Start: 11-07-2024 Urnls dip stick/tabl et reagent auto microscopy Dr. Padmini Carrasco MD Work Phone: Start: 11-07-2024 Computed tomography of abdomen and pelvis with contrast Dr. Padmini Carrasco MD Work Phone: Start: 11-07-2024 Measurement of occul t blood in stool specimen using immunoassay Dr. Padmini Carrasco MD Work Phone: Start: 10-15-2024 Blood count complete auto&auto difrntl [...] artery bypass grafting Hx of CABG Venita Acevedofam [facility] Work Phone: Start: 12-28-2021 Computed tomography [...] Carrasco MD Work Phone: Comment on above: LI History of repair of inguinal hernia S/P [...] P,Tdap,Td Vaccine (2 - Td or Tdap) [facility] Start: 07-27-2027 Diabetes Screening Diabetes Screenin g [facility] Start: 10-15-2025 Complete blood count Hemoglobin/Miguel A [facility] Start: 10-09-2025 Complete blood count Hemoglobin/Miguel A [facility] Start: 10-01-2025 Complete blood count Hemoglobin/Miguel A [facility] Start: 10-01-2025 Creatinine measurement Serum Creatin ine [facility] Start: 09-27-2025 Creatinine measurement Serum Creatin ine [facility] Start: 09-24-2025 Complete blood count Hemoglobin/Miguel A [facility] Start: 09-24-2025 Creatinine measurement Serum Creatin ine [facility] Start: 09-05-2025 Complete blood count [facility] Start: 09-05-2025 Creatinine measurement Serum Creatin ine [facility] Start: 07-31-2025 Screening for malign ant neoplasm of lung Lung Cancer Screening [facility] Start: 07-26-2025 Complete blood count Hemoglobin/Miguel A [facility] Start: 07-26-2025 Creatinine measurement Serum Creatin ine [facility] Start: 01-03-2025 DIABETES SCREEN DIABETES SCREEN [facility] Start: 01-01-2025 DIABETES SCREEN DIABETES SCREEN [facility] Start: 12-28-2024 DIABETES SCREEN DIABETES SCREEN [facility] Start: 11-19-2024 End: 11-19-2024 Patient encounter procedure 11/19/2024 9:00 AM EDT Office Visit Radiation Oncology [address] [place] [address] Luigi Banks MD [address] [place] [address] 4 wk follow Radiation Oncology Comment on above: 4 wk follow Start: 11-09-2024 End: 11-09-2024 ambulatory 11/09/2024 11:00 AM EDT Visit (SP) Office Hematology/Oncology [address] [place] [address] Lakeisha Dawkins DO [address] [place] [address] 8 WK OV* Hematology/Oncology Comment on above: 8 WK OV* Start: 11-07-2024 Patient discharge [facility] Start: 11-07-2024 Following clinical p athway protocol [facility] Start: 11-07-2024 Peripherally inserte d central catheter care [facility] Start: 11-07-2024 Application of intermittent pneumatic compression device [facility] Start: 11-07-2024 Assessment of risk o f venous thromboembolism [facility] Start: 11-07-2024 Consultation [facility] Start: 11-07-2024 Continuous pulse oximetry [facility] Start: 11-07-2024 Elevation of head of bed [facility] Start: 11-07-2024 Fall prevention [facility] Start: 11-07-2024 Incentive spirometry [facility] Start: 11-07-2024 Insertion of cathete r into peripheral vein [facility] Start: 11-07-2024 Introduction of urin brad catheter [facility] Start: 11-07-2024 Measuring intake and output [facility] Start: 11-07-2024 Providing care accor ding to standard [facility] Start: 11-07-2024 Provision of activit y privileges [facility] Start: 11-07-2024 Referral for physica l therapy [facility] Start: 11-07-2024 Referral to gastroenterology service [facility] Start: 11-07-2024 Referral to occupati onal therapist [facility] Start: 11-07-2024 Referral to service [facility] Start: 11-07-2024 Tobacco use cessatio n education [facility] Start: 11-07-2024 Vital signs measurements [facility] Start: 11-07-2024 [facility] Start: 11-07-2024 Admission procedure [facility] Start: 11-07-2024 Lactic acid measurement [facility] Start: 11-07-2024 [facility] Start: 11-07-2024 End: 11-07-2024 [facility] Start: 11-07-2024 Leukocyte reduced re d blood cells [facility] Start: 11-07-2024 Administration of bl ood product [facility] Start: 11-07-2024 Bacteria identified in Urine by Culture Urine Culture [facility] Start: 10-22-2024 End: 10-22-2024 Patient encounter procedure Radiation Oncology Comment on above: Con Chemo Start: 10-19-2024 End: 10-19-2024 ambulatory 10/19/2024 4:00 PM EDT Infusion Center Hematology/Oncology [address] [place] [address] Wstr, Lab/Port [place] A [facility] [address] [place] [address] DC CADD* Hematology/Oncology Comment on above: DC CADD* Start: 10-19-2024 End: 10-19-2024 Patient encounter procedure 10/19/2024 10:15 AM EDT Appointment Radiation Oncology [address] [place] [address] Con Chemo Radiation Oncology Comment on above: Con Chemo Start: 10-18-2024 End: 10-18-2024 Patient encounter procedure 10/18/2024 10:15 AM EDT Appointment Radiation Oncology [address] [place] [address] Con Chemo Radiation Oncology Comment on above: [...] Appointment Radiation Oncology [address] [place] [address] Con Chemo Radiation Oncology Comment on above: Con Chemo Start: 10-15-2024 End: 10-15-2024 ambulatory Hematology/Oncology Comment on above: D22 CBC/CMP/QMO 5FU/ 2-2(PICC)ON XRT* D22(SO)CBC/CMP(S)(PI CC)/QMO 5FU/2-2/ON XRT* D22(SO)REDRAW CBC/CM P(S)(PICC)/QMO 5FU/2-2/ON XRT* Start: 10-12-2024 End: 10-12-2024 Patient encounter procedure 10/12/2024 10:15 AM EDT Appointment Radiation Oncology [address] [place] [address] Con Chemo Radiation Oncology Comment on above: Con Chemo Start: 10-12-2024 End: 10-12-2024 ambulatory Hematology/Oncology Comment on above: 4 WK OV/CHEMO 10/15* M ASCI (PICC)/DRESSING MCKINLEY GE* Start: 10-11-2024 End: 10-11-2024 Patient encounter procedure 10/11/2024 10:15 AM EDT Appointment Radiation Oncology [address] [place] [address] Con Chemo Radiation Oncology Comment on above: Con Chemo Start: 10-10-2024 End: 10-10-2024 Patient encounter procedure 10/10/2024 10:15 AM EDT Appointment Radiation Oncology [address] [place] [address] Con Chemo Radiation Oncology Comment on above: Con Chemo Start: 10-09-2024 End: 10-09-2024 Patient encounter procedure Radiation Oncology Comment on above: Con Chemo Location: W-ON TREAT MENT VISIT Start: 10-09-2024 End: 10-09-2024 ambulatory Hematology/Oncology Comment on above: D15 CBC(PICC)/DRESSI NG CHANGE* D22 CBC/CMP(PICC)/DR ARANA CHANGE* D15(SO)CBC(PICC)/DIDIER SSING CHANGE* Start: 10-08-2024 Influenza vaccination Influenza Vacc ine (#1) [facility] Start: 10-05-2024 End: 10-05-2024 ambulatory 10/05/2024 10:45 AM EDT Infusion Center Hematology/Oncology [address] [place] [address] Wstr, Lab/[place] A [facility] [address] [place] [address] PICC DRESSING CHANGE Hematology/Oncology Comment on above: PICC DRESSING CHANGE Start: 10-05-2024 End: 10-05-2024 Patient encounter procedure 10/05/2024 10:15 AM EDT Appointment Radiation Oncology [address] [place] [address] Con Chemo Radiation Oncology Comment on above: Con Chemo Start: 10-04-2024 End: 10-04-2024 Patient encounter procedure 10/04/2024 10:15 AM EDT Appointment Radiation Oncology [address] [place] [address] Con Chemo Radiation Oncology Comment on above: Con Chemo Start: 10-03-2024 End: 10-03-2024 Patient encounter procedure 10/03/2024 10:15 AM EDT Appointment Radiation Oncology [address] [place] [address] Con Chemo Radiation Oncology Comment on above: [...] Radiation Oncology [address] [place] [address] Con Chemo Radiation Oncology Comment on above: Con Chemo Start: 09-28-2024 End: 09-28-2024 ambulatory Hematology/Oncology Comment on above: DC CADD* DC CADD*/PICC DRESSI NG CHANGE Start: 09-28-2024 End: 09-28-2024 Patient encounter procedure 09/28/2024 10:15 AM EDT Appointment Radiation Oncology [address] [place] [address] Con Chemo Radiation Oncology Comment on above: Con Chemo Start: 09-27-2024 End: 09-27-2024 ambulatory 09/27/2024 9:45 AM EDT Infusion Center Hematology/Oncology [address] [place] [address] Wstr, Lab/[place] A [facility] [address] [place] [address] BMP* POSSIBLE HYDRATION Hematology/Oncology Comment on above: BMP* POSSIBLE HYDRAT ION Start: 09-27-2024 End: 09-27-2024 Patient encounter procedure Radiation Oncology Comment on above: Con Chemo Con Chemo. today onl y Start: 09-26-2024 End: 09-26-2024 Patient encounter procedure 09/26/2024 10:15 AM EDT Appointment Radiation Oncology [address] [place] [address] Con Chemo Radiation Oncology Comment on above: Con Chemo Start: 09-25-2024 End: 09-25-2024 Patient encounter procedure Radiation Oncology Comment on above: Con Chemo Location: W-ON TREAT MENT VISIT Start: 09-24-2024 End: 09-24-2024 Patient encounter procedure Radiation Oncology Comment on above: con chemo tent time wants AM times con chemo Start: 09-24-2024 End: 09-24-2024 ambulatory 09/24/2024 11:00 AM EDT Infusion Center Hematology/Oncology [address] [place] [address] START QMO 5FU/1-2(PICC)ON XRT* Hematology/Oncology Comment on above: START QMO 5FU/1-2(PI BRIANNA)ON XRT* Start: 09-18-2024 End: 09-18-2024 Patient encounter procedure 09/18/2024 9:00 AM EDT App[facility]ment [facility] [address] [facility] [place] [address] Malignant neoplasm of urinary bladder, unspecified site (HCC) [C67.9] Cat Scan Comment on above: Malignant neoplasm o f urinary bladder, unspecified site (HCC) [C67.9] Start: 09-17-2024 End: 09-17-2024 Patient encounter procedure Radiation Oncology Comment on above: con chemo tent time con chemo tent time wants AM times Start: 09-13-2024 End: 09-13-2024 Patient encounter procedure 09/13/2024 1:30 PM EDT Office Visit Urology [address] [address] Tc Nath MD [address] [place] [id number] CONSULT TO UROLOGY Urology Comment on above: CONSULT TO UROLOGY Start: 09-12-2024 End: 09-12-2024 ambulatory 09/12/2024 10:30 AM EDT Infusion Center Hematology/Oncology [address] [place], [place] [id number] Wstr, Hands [employer]anger [facility] [address] [facility] [place], [place] [address] CHEMO ED-5FU*rescheduled from 09/07 Hematology/Oncology Comment on [...] Nurse Visit Radiation Oncology [address] [place] [address] Wstr, Nurse Radt [facility] [address] [place], [place] [address] Location: W-NURSING Radiation Oncology Comment on above: Location: W-NURSING Start: 09-06-2024 End: 09-06-2024 Patient encounter procedure 09/06/2024 10:30 AM EDT Office Visit Radiation Oncology [address] [place], [place] [id number] Luigi Banks MD [address] [place] [address] Malignant neoplasm of urinary bladder, unspecified site (HCC) [C67.9] Radiation Oncology Comment on above: Malignant neoplasm o f urinary bladder, unspecified site (HCC) [C67.9] Start: 09-05-2024 End: 09-05-2024 ambulatory 09/05/2024 2:00 PM EDT Visit (SP) Office Hematology/Oncology [address] [place] [address] Lakeisha Dawkins DO [address] [place] [address] transfer of care from [facility] Hematology/Oncology Comment on above: transfer of care fro m [facility] Start: 09-05-2024 End: 12-05-2024 Chronic hepatitis differentiation between hepatitis B and C virus panel - Serum or Plasma [facility] Comment on above: Expected: 09/05/2024 , Expires: 12/05/2024 Start: 09-05-2024 End: 12-05-2024 [id number]/[id number] GENOTYPING PANEL [facility] Work Phone: Comment on above: Expected: 09/05/2024 , Expires: 12/05/2024 Start: 09-04-2024 End: 12-04-2024 Basic metabolic 2000 panel - Serum or Plasma BASIC METABOLIC PANEL Lab Routine Malignant neoplasm of urinary bladder, unspecified site (HCC) Other hydronephrosis Expected: 09/04/2024, Expires: 12/04/2024 [facility] Comment on above: Expected: 09/04/2024 , Expires: 12/04/2024 Start: 09-04-2024 End: 09-20-2025 CT Abdomen and Pelvis WO contrast CT ABD/PEL WO IVCON Radiology Routine Malignant neoplasm of urinary bladder, unspecified site (HCC) Other hydronephrosis Expected: 09/04/2024, Expires: 09/20/2025 [facility] Work Phone: Comment on above: Expected: 09/04/2024 , Expires: 09/20/2025 Start: 08-21-2024 End: 08-21-2024 Admission to same day surgery center 08/21/2024 3:25 PM EDT - 08/21/2024 4:40 PM EDT Surgery [address] [address] Stacy Gauthier MD [address] [place] [address] CYSTOSCOPY RIGID [facility] Comment on above: CYSTOSCOPY RIGID Start: 08-21-2024 Subsequent hospital visit by physician 08/21/2024 3:25 PM EDT Hospital Encounter [address] [address] Stacy Gauthier MD [address] [place] [address] Malignant neoplasm of urinary bladder, unspecified site (HCC) [C67.9], Gross hematuria [R31.0] [facility] Comment on above: Malignant neoplasm o f urinary bladder, unspecified site (HCC) [C67.9], Gross hematuria [R31.0] Start: 08-21-2024 End: 08-21-2024 Cysto w/insert ureteral stent [place] OR Start: 08-21-2024 End: 08-21-2024 Cysto w/removal of tumors small [place] OR Start: 08-21-2024 End: 08-21-2024 Cystourethroscopy [place] OR Start: 08-16-2024 End: 11-15-2024 Bacteria identified in Urine by Culture BACTERIAL CULTURE, URINE Microbiology Routine Hematuria, gross Expected: 08/16/2024, Expires: 11/15/2024 [facility] Comment on above: Expected: 08/16/2024 , Expires: 11/15/2024 Start: 08-16-2024 End: 08-16-2024 ambulatory 08/16/2024 10:00 AM EDT PAT Pre Surgical Testing [address] [place] [address] PAT CYSTOSCOPY TRANS URETHRAL RESECTION OF A BLADDER TUMOR LEFT URETERAL STENT INSERTION Pre Surgical Testing Comment on above: PAT CYSTOSCOPY TRANS URETHRAL RESECTION OF A BLADDER TUMOR LEFT URETERAL STENT INSERTION Start: 08-02-2024 End: 08-02-2024 Patient encounter procedure 08/02/2024 2:15 PM EDT Office Visit Urology [address] [place] [address] Stacy Gauthier MD [address] [place] [address] bladder cancer Urology Comment on above: bladder cancer Start: 07-31-2024 End: 07-31-2024 Patient encounter procedure Cat Scan Comment on above: CT ABD/PEL W IVCON Start: 06-28-2024 Chemotherapy care management [facility] Start: 06-28-2024 End: 06-28-2024 Patient discharge [facility] Start: 06-28-2024 Inhalation therapy procedure [facility] Start: 06-27-2024 Measuring intake and output [facility] Start: 06-27-2024 Ambulation therapy management [facility] Start: 06-27-2024 Deep breathing and coughing exercises [facility] Start: 06-27-2024 Incentive spirometry [facility] Start: 06-27-2024 Oxygen therapy [facility] Start: 06-27-2024 Provision of activit y privileges [facility] Start: 06-27-2024 Assessment of risk o f venous thromboembolism [facility] Start: 06-27-2024 End: 06-27-2024 Following clinical pathway protocol [facility] Start: 06-27-2024 Taking patient vital signs [facility] Start: 06-27-2024 Vital signs measurements [facility] Start: 06-27-2024 End: 06-27-2024 [facility] Start: 06-27-2024 Admission procedure [facility] Start: 06-27-2024 Anes transurethral resection of bladder tumor ANESTH BLADDER TUMOR SURG [facility] Start: 06-27-2024 Cystourethroscopy w/ dest &/rmvl tumor large CYSTOSCOPY AND TREATMENT [facility] Start: 06-27-2024 Transurethral resect ion of bladder neoplasm Cysto,Transurethal Resec Bladder,Olympus (Not Applicable) [facility] Start: 06-27-2024 Ambulation without limitation [facility] Start: 06-27-2024 Medication education [facility] Start: 06-27-2024 Patient discharge [facility] Start: 06-27-2024 Planned voiding [facility] Start: 06-27-2024 Taking patient vital signs [facility] Start: 06-27-2024 [facility] Start: 06-27-2024 [facility] Start: 05-16-2024 End: 05-17-2024 [facility] Start: 04-09-2024 Lipid panel Lipid Screening [facility] Start: 04-09-2024 LIPID SCREEN LIPID SCREEN [facility] Start: 02-08-2024 Advance Directive Discussion Advance Directive Discussion [facility] Start: 01-18-2024 Anesthesia hernia re pair lower abdomen nos ANESTH REPAIR OF HERNIA [facility] Start: 01-18-2024 Rpr 1st ingun hrna a ge 5 yrs/> reducible PRP I/SHILPI INIT REDUC >5 YR [facility] Start: 01-18-2024 Patient discharge [facility] Start: 10-09-2023 Covid-19 Vaccine ( season) Covid-19 Vaccine ( season) [facility] Start: 02-03-2023 BP CONTROLLED (<130/80) BP CONTROLLE D (<130/80) [facility] Start: 05-11-2022 Exercise tolerance test [facility] Start: 05-03-2022 Measurement of respi ratory function [facility] Start: 04-09-2022 DIABETES SCREEN DIABETES SCREEN [facility] Start: 03-30-2022 Patient referral [facility] Work Phone: Start: 03-04-2022 Patient discharge [facility] Start: 03-03-2022 Referral to occupati onal therapist [facility] Start: 03-03-2022 Referral to service [facility] Start: 03-03-2022 Referral to service [facility] Start: 03-02-2022 Following clinical p athway protocol [facility] Start: 03-02-2022 Assessment of risk o f venous thromboembolism [facility] Start: 03-02-2022 Catheterization of vein [facility] Start: 03-02-2022 Elevation of head of bed [facility] Start: 03-02-2022 Incentive spirometry [facility] Start: 03-02-2022 Inhalation therapy procedure [facility] Start: 03-02-2022 Insertion of cathete r into peripheral vein [facility] Start: 03-02-2022 Oxygen therapy [facility] Start: 03-02-2022 Patient education [facility] Start: 03-02-2022 Physiotherapy of chest [facility] Start: 03-02-2022 Providing care accor ding to standard [facility] Start: 03-02-2022 Referral to service [facility] Start: 03-02-2022 [facility] Start: 03-02-2022 Verification routine [facility] Start: 03-02-2022 Following clinical p athway protocol [facility] Start: 03-02-2022 Legionella pneumophi la Ag [Presence] in Urine [facility] Start: 03-02-2022 Streptococcus pneumo niae antigen assay [facility] Start: 03-02-2022 [facility] Start: 03-02-2022 Admission procedure [facility] Start: 03-02-2022 End: 03-02-2022 [facility] Start: 03-02-2022 Patient referral to dietitian [facility] Start: 02-07-2022 ADVANCE DIRECTIVE DISCUSSION ADVANCE DIRECTIVE DISCUSSION [facility] Start: 02-07-2022 DEPRESSION ASSESSMENT DEPRESSION ASS ESSMENT [facility] Start: 10-08-2021 Influenza vaccination INFLUENZA (#1) [facility] Start: 02-07-2021 ADVANCE DIRECTIVE DISCUSSION ADVANCE DIRECTIVE DISCUSSION [facility] Start: 02-07-2021 DEPRESSION ASSESSMENT DEPRESSION ASS ESSMENT [facility] Start: 04-09-2020 Hepatitis B surface antibody level LDL CHOLESTEROL [facility] Start: 02-16-2020 Adult depression scr eening assessment DEPRESSION SCREENING [facility] Start: 11-18-2019 Colonoscopy COLONOSCOPY [facility] Start: 11-18-2019 COLORECTAL CANCER SCREENING COLORECTAL CANCER SCREENING [facility] Start: 11-18-2019 Screening for malign ant neoplasm of colon [facility] Start: 03-10-2015 Medicare Annual Well ness Visit Medicare Annual Wellness Visit [facility] [facility] Start: 2015 PNEUMOVAX AGE 65 AND OVER WITH 5YR LOOKBACK (#1) PNEUMOVAX AGE 65 AND OVER WITH 5YR LOOKBACK (#1) [facility] Start: 02-07-2015 Medicare Annual Well ness Visit Medicare Annual Wellness Visit [facility] Start: 2010 RSV Vaccine (1 - Ris k 60-74 years 1-dose series) RSV Vaccine (1 - Risk 60-74 years 1-dose series) [facility] Start: 2005 Influenza vaccination LUNG CANCER [facility] Start: 02-27-2000 Influenza vaccination LUNG CANCER [facility] Start: 02-27-2000 SHINGRIX VACCINE (1 of 2) SANCHEZ GRIX VACCINE (1 of 2) [facility] Start: 1995 COLOGUARD (FIT-DNA) COLOGUARD (FIT-D NA) [facility] Start: [address] COLONOGRAPHY [facility] Start: 1995 FECAL OCCULT BLOOD FECAL OCCULT BLOO D [facility] Start: 1995 Screening for malign ant neoplasm of colon [facility] Start: 1995 [address]IDOSCOPY [address] [facility] Start: 02-27-1980 Zoledronic acid therapy ALPHA- 1 ANTITRYPSIN DEFICIENCY SCREENING [facility] Start: 1969 Shingrix Vaccine (1 of 2) Sanchez grix Vaccine (1 of 2) [facility] Start: 1969 Urine microalbumin profile DTAP,TDAP ,TD (1 - Tdap) [facility] Start: 02-27-1968 ANNUAL PCP TEAM [employer] AINSLEY DISEASE VISIT ANNUAL PCP TEAM CHRONIC DISEASE VISIT [facility] Start: 02-27-1968 Anxiety Screening Anxiety Screening [facility] Start: 02-27-1968 BP CONTROLLED (<130/80) BP CONTROLLE D (<130/80) [facility] Start: 02-27-1968 Depression Screening Depression Scre ening [facility] Start: 02-27-1968 HEPATITIS C SCREENING HEPATITIS C SC [facility] Start: 02-27-1968 Hepatitis C screening Hepatitis C Sc [facility] Start: 02-27-1960 Diabetic foot examination Diabetic F oot Exam [facility] Start: 02-27-1960 Glaucoma screening Dilated Retinal E xam [facility] Start: 02-27-1960 Hepatitis B screening Urine Albumin:Creatinine Ratio [facility] Start: 02-27-1956 PNEUMOCOCCAL: 65+ (1 - PCV) PNEUMOCOCCAL: 65+ (1 - PCV) [facility] Start: 1955 COVID-19 VACCINE (1) COVID-19 VACCIN E (1) [facility] Start: 1955 Hemoglobin A1c measurement HbA1C [facility] Start: 1950 COVID-19 VACCINE (#1) COVID-19 VACCI NE (#1) [facility] Bacteria identified in Sputum by Respiratory culture [facility] Blood chemistry [facility] CT Abdomen and Pelvi s WO contrast CT ABD/PEL WO IVCON Radiology Routine Malignant neoplasm of urinary bladder, unspecified site (HCC) Other hydronephrosis 09/18/2024 9:19 AM EDT [facility] Work Phone: CT Chest [facility] Guidance for percuta neous placement of nephrostomy tube of Kidney IR NEPHROSTOMY TUBE PLACE Radiology Routine Malignant neoplasm of overlapping sites of bladder (HCC) ROSALIE (acute kidney injury) Hydroureter on left Ordered: 09/05/2024 [facility] Comment on above: Ordered: 09/05/2024 H&P for surgery H&P FOR SURGERY Procedures Routine Malignant neoplasm of urinary bladder, unspecified site (HCC) Hematuria, gross Ordered: 08/13/2024 [facility] Work Phone: Comment on above: Ordered: 08/13/2024 Patient Education [facility] Work Phone: Patient referral [facility] Work Phone: Respiratory Culture Respiratory Culture [facility] Troponin T.cardiac [Mass/volume] in Serum or Plasma by High sensitivity method [facility] UA DIP, URINE (POC) UA DIP, URIN E (POC) Lab Routine Malignant neoplasm of urinary bladder, unspecified site (HCC) Nocturia Hematuria, gross Ordered: 08/02/2024 [facility] Work Phone: Comment on above: Ordered: 08/02/2024 Urine culture [facility] Urine culture [facility] End: 01-01-2023 US ABD AORTA COMPLETE VAS LAB US ABD AORTA COMPLETE VAS LAB Vascular Lab Routine Abdominal aortic aneurysm (AAA) without rupture, unspecified part Edema of abdomen 1 Occurrences starting 01/01/2022 until 01/01/2023 [facility] Work Phone: Comment on above: 1 Occurrences starti ng 01/01/2022 until 01/01/2023 US Heart [facility] Heart [facility] End: 10-05-2025 US Kidney - bilateral and Urinary bladder US KIDNEY/BLADDER Radiology STAT Malignant neoplasm of overlapping sites of bladder (HCC) ROSALIE (acute kidney injury) Hydroureter on left 1 Occurrences starting 09/05/2024 until 10/05/2025 [facility] Work Phone: Comment on above: 1 Occurrences starti ng 09/05/2024 until 10/05/[address] & VAS [facility] Immunizations Immunization Date Immunization Notes Care Provider Fa cility 01-11-2024 influenza virus vacc ine, unspecified formulation Codey Christianson MD Work Phone: [facility] Payers Date Payer Category Payer Self-pay [id number] 2015 Medicare MEDICARE MEDICAR E A AND B [id number] 2015-Present [phone] [place] [address] Medicare [id number] 2015 Medicare [id number] 2015 Medicare [id number] 2005 Unknown [facility] [id number] 2005-Present [phone] [address] [place] [address] [facility] [id number] Unknown [facility] *DO NOT USE* [id number] Unknown [id number] Unknown [id number] [id number]2 Unknown [id number] 2.16.840.1.119811.3.579.2.462 Unknown [id number] 2.16.840.1.299119.3.579.2.462 Unknown [id number] 2.16.840.1.999796.3.579.2.462 Unknown [id number] 2.16.840.1.429044.3.579.2.462 Unknown [id number] 2.16.840.1.159799.3.579.2.462 Unknown [id number] 2.16.840.1.902593.3.579.2.462 Unknown [id number] 2.16.840.1.339510.3.579.2.462 Unknown [id number] 2.16.840.1.074251.3.579.2.462 Unknown [id number] 2.16.840.1.116559.3.579.2.462 Unknown [id number] 2.16.840.1.232017.3.579.2.462 Unknown [id number] 2.16.840.1.900045.3.579.2.462 Unknown [id number] 2.16.840.1.886672.3.579.2.462 Unknown [id number] 2.16.840.1.147427.3.579.2.462 Unknown [id number] 2.16.840.1.242521.3.579.2.462 Unknown [id number] 2.16.840.1.918135.3.579.2.462 Unknown [id number] 2.16.840.1.891117.3.579.2.462 Unknown [id number] 2.16.840.1.033376.3.579.2.462 Unknown [id number] 2.16.840.1.332502.3.579.2.462 Unknown [id number] 2.16.840.1.235462.3.579.2.462 Unknown [id number] 2.16.840.1.294946.3.579.2.462 Unknown [id number] 2.16.840.1.925987.3.579.2.462 Unknown [id number] Social History Date Type Detail Facility Tobacco smoking stat us MAIS Ex-smoker [facility] Work Phone: End: 01-30-2019 History of tobacco use Current smoker [facility] Work Phone: Start: 01-30-1979 End: 01-30-2019 History of tobacco use Cigarette Smoker [facility] Work Phone: Start: 04-17-2021 End: 10-12-2024 Alcohol intake Current non-drinker of alcohol (finding) [facility] Start: 08-11-2012 End: 12-28-2021 Tobacco Comment started smoking 15yo, usually 1 PPD [facility] Start: 1950 Sex Assigned At Not on file C [facility] Start: 04-07-2021 End: 12-28-2021 Exposure to SARS-CoV-2 (event) Not sure [facility] Start: 07-07-2021 End: 02-28-2023 Tobacco smoking status MAIS Unknown if ever smoked [facility] Start: 11-14-2018 Cigarettes [facility] Start: 1950 Sex Assigned At Male [facility] Start: 12-28-2021 End: 11-07-2024 Tobacco smoking status NHIS Smokes tobacco daily [facility] Work Phone: Start: 12-28-2021 End: 07-31-2024 Cigarettes smoked current (pack per day) - Reported 1 [facility] Start: 12-28-2021 End: 08-02-2024 Tobacco use and exposure Smokeless tobacco non-user [facility] Work Phone: Start: 05-16-2024 End: 05-17-2024 Sex Male (finding) [facility] Start: 02-03-2022 End: 07-31-2024 Tobacco use panel [facility] Start: 01-09-2012 PHQ2 Score 0 [facility] Start: 09-12-2024 Gender identity Identifies as male gender (finding) [facility] Start: 09-12-2024 Sexual orientation Heterosexual (fin ding) [facility] How often to you hav e a drink containing alcohol? Never [facility] Medical Equipment Procedure Code Equipment Code Equipment Origin al Text Equipment Identifier Dates Repair, hernia, inguinal, with mesh insertion ([id number]) Extra-gynaecological surgical mesh, synthetic polymer, non-bioabsorbable ()[id number] FDA Start: 11-09-2023 Repair, hernia, inguinal, with mesh insertion ([id number]) Extra-gynaecological surgical mesh, synthetic polymer, non-bioabsorbable ()[id number] FDA Start: 01-18-2024 [place] Thk1.65mm P tfe 4x.5in Cardiovascular Sterile - [id number] Start: 02-12-2019 Valve Aort 23mm Crp-Ed Thfx - [id number] Start: 02-12-[address] us Vascutek 18/9mm 2 Branch Gelatin 45cm Vascular Main Leg - [id number] Start: 12-28-2021 Goals Date Patient Goal Desired Activity /State Functional Status Date Assessment Result Facility 11-07-2024 Functional status Activity Abili ty With Assist of 2 [facility] Work Phone: 10-12-2024 Total score [AUDIT-C] 0 10/13/19 25 10:19 AM Paramjit Brooks MA [facility] 06-28-2024 Functional status Ambulates [facility] Work Phone: 03-04-2022 Functional status Ambulates [facility] Work Phone: 01-03-2022 Are you deaf, or do you have serious difficulty hearing No 01/03/2022 12:55 PM Abida Bright, RN No [facility] 01-03-2022 Are you blind, or do you have serious difficulty seeing, even when wearing glasses No 01/03/2022 12:55 PM Abida Bright, RN No [facility] 02-20-2019 Do you have serious difficulty walking or climbing stairs No 02/20/2019 1:06 PM Terrie Keys (Rn), RN No [facility] 02-20-2019 Do you have difficul ty dressing or bathing No 02/20/2019 1:06 PM Terrie Keys (Rn), RN No [facility] 02-20-2019 Because of a physica l, mental, or emotional condition, do you have difficulty doing errands alone such as visiting a physician's office or shopping No 02/20/2019 1:06 PM Terrie Keys (Rn), RN No [facility] Mental Status Date Assessment Result Facility 11-07-2024 Cognitive function Voice/Name [facility] Work Phone: 09-21-2024 Cognitive function Voice/Name [facility] Work Phone: 06-28-2024 Cognitive function Level Of Cons ciousness Awake;Alert;Appropriate;Fol lows Commands [facility] Work Phone: 06-27-2024 Cognitive function Voice/Name [facility] Work Phone: 06-27-2024 Cognitive function Voice/Name [facility] Work Phone: 01-18-2024 Cognitive function Voice/Name [facility] Work Phone: 03-03-2022 Cognitive function Voice/Name [facility] Work Phone: 02-20-2019 Because of a physica l, mental, or emotional condition, do you have serious difficulty concentrating, remembering, or making decisions No 02/20/2019 1:06 PM Terrie Keys (Rn), RN No [facility] Clinical Notes 02-12-2019 to 11-11-2024 Note Date & Type Note Facility 11-11-2024 Note HNO ID: [id number] Author: SHERIE RAM RN Service: Care Management Author Type: Registered Nurse Type: Care Mgt Progress Note Filed: 11/11/2024 15:26 Note Text: CARE MANAGEMENT DISCHARGE NOTE SERVICE DATE: November 11, 2024 SERVICE TIME: 3:25 PM Admission Date: 11/07/2024 LOS: 3 days Discharge Arrangement Discharge Arrangement: Home with Self Care Services Arranged Provider Name: home Phone: Caregiver Assessment Caregiver is ready, willing and able to meet the patient's needs as recommended by the inter-professional team: No Caregiver needed Transportation Arrangements Transportation Arrangements: Car Handoff Communication: Additional Information: Patient discharged today, to return home. Pt on baseline oxygen, which he fills through [employer]. Family will need to bring in portable for transport. No other skilled needs identified at this time. SIGNATURE: Sherie Ram RN PATIENT NAME: Abelardo Ivory DATE: November 11, 2024 TIME: 3:[address] [facility] 11-11-2024 Note HNO ID: [id number] Author: LISA ISLAS MD Service: Gastroenterology Author Type: Physician Type: Plan of Care Filed: 11/11/2024 14:16 Note Text: GI Plan of Care Note 74M with pmh of PUD, bladder cancer s/p TURP, AAA s/p repair, CAD s/p CABG, COPD, CKD3 transferred from [place] following endoscopic management of actively bleeding duodenal ulcer with spurting visible vessel treated with bipolar cautery and injection therapy. Received 2u prbc at that time, none since arrival. Transferred for possible escalation of care. Since transfer, patient's hemoglobin has remained stable (9.2 today). He has had no further melena with only one report of brown BM containing small amount of blood today according to nurse. No evidence of HD instability. Plan: Continue ppi bid Repeat HH given reported episode, and if stable proceed with discharge Start miralax daily to prevent constipation Follow up with pmd for blood work in 1 week Establish care with GI via PMD for follow up within 2 weeks Needs repeat EGD in 4 weeks Instructed patient to return to hospital if melena / bleeding recurs Above plan communicated with patient, nurse, and primary team Lisa Islas MD [facility] 11-10-2024 Note HNO ID: [id number] Author: TANIA DE LUNA DO Service: Hospital Medicine Author Type: Physician Type: Progress Notes Filed: 11/10/2024 16:06 Note Text: DEPARTMENT OF HOSPITAL MEDICINE PROGRESS NOTE SERVICE DATE: 11/10/2024 SERVICE TIME: 8:43 AM Hospital Medicine/Primary Attending: Tania De Luna DO NIGHT AND WEEKEND COVERAGE: After 7pm please page [phone] CHIEF COMPLAINT: weakness SUBJECTIVE: Pt seen and examined. Complains of feeling a little weaker than baseline, needs PTOT to eval. Denies any GI bleed or hematuria. Denies CP, NV, fevers or chills. Has baseline mild Shortness of Breath. OBJECTIVE: PHYSICAL EXAM: BP 147/70 Pulse 77 Temp (Src) 97.7 (Axillary) Resp 18 Ht 5' 6 (1.68m) Wt 154 lb 1.6 oz (69.9kg) SpO2 89% BMI 24.88 kg/(m2). O2 Therapy: Nasal Cannula, Liters (Numeric Only): 2 General - AANDOx3, NAD, Calm CV - RRR S1 S2, No rubs or gallops RESP - No wheezes, ronchi, rales ABD - soft, NT, ND +BS EXT - no clubbing, cyanosis, 5/5 strength all extremities MEDICATIONS: Current Facility-Administered Medications Medication Dose Route Frequency albuterol 2.5 mg /3 mL (0.083 %) 2.5 mg (PROVENTIL) 2.5 mg INHALATION q 6 H PRN NaCl 0.9% iv flush bag 20 mL INTRAVENOUS PRN rosuvastatin 5 mg tab(s) (CRESTOR) 5 mg ORAL AT BEDTIME vancomycin dosing and monitoring per pharmacy OTHER As Directed budesonide 0.5 mg/2 mL 1 mg (PULMICORT) 1 mg INHALATION BID And ipratropium-albuterol 3 mL nebulizer solution (DUONEB) 3 mL INHALATION QID pantoprazole DR 40 mg tab(s) (PROTONIX) 40 mg ORAL BID AC (0600/1600) amLODIPine 5 mg tab(s) (NORVASC) 5 mg ORAL DAILY metoprolol tartrate (short acting) 12.5 mg tab(s) (LOPRESSOR) 12.5 mg ORAL q 12 H DATA: Diagnostic tests reviewed for today's visit: CBC: Recent Labs 11/10/2418 WBC 5.56 RBC 2.83* HB 8.6* HCT 26.6* PLT 149* MCV 94.0 MCH 30.4 MPV 9.0 Coags: No results for input(s): PT, INR, APTT in the last 24 hours. BMP: Recent Labs 11/10/2418 NA 133* K 4.5 CHLOR 100 CO2 23 BUN 26* CREAT 1.65* GLUC 91 CMP: Recent Labs 11/10/24 0518 NA 133* K 4.5 CHLOR 100 CO2 23 BUN 26* CREAT 1.65* GLUC 91 CA 8.5 ANION 10 Cardiac Enzymes: No results for input(s): CK, MB, CKMB, TROPT in the last 24 hours. Liver Function, Amylase, Lipase: No results for input(s): TPROT, ALB, ALT, AST, ALKPHOS, TBILI, AMYLASE, LIPASE, LACTATE in the last 24 hours. MG/PHOS: No results for input(s): MG, P in the last 24 hours. Renal Panel: Recent Labs 11/10/24 0518 CREAT 1.65* BUN 26* GLUC 91 CA 8.5 CHLOR 100 K 4.5 CO2 23 NA 133* Heme: No results for input(s): RETICP, ABSRETIC, LD, LAURA, FE, TIBC,TRANSFERSAT in the last 24 hours. No results found for: UALBCR Estimated Creatinine Clearance: 35.4 mL/min (A) (based on SCr of 1.65 mg/dL (H)). Most recent labs and radiology results reviewed. Assessment/Plan 74 yo M male with PMHx of peptic ulcer disease, bladder cancer s/p reported TURP (currently undergoing chemo), hx of AAA s/p rupture, COPD, CAD s/p CABG, CKDIII who presented to [facility] on 11/07 from [place] with complaints of BRBPR at home. In the ED, systolics were reportedly in the 70s and underwent upper and lower endoscopies and found a spurting duodenal ulcer and a visible vessel that was injected and cauterized. He received 2 units of pRBCs for which his hemoglobin improved. He was admitted to the [facility] MICU for further monitoring due to acute blood loss. He did not require pressors. There was no reported hematochezia or melena (patient has not had a bowel movement in the [facility] MICU). Gastroenterologywas consulted, and did not recommend a repeat EGD due to stable HANDH. Patient had presence of urinary symptoms and was found to have a UTI. He was started on vancomycin due to recent Enterococcus faecalis infection. Transferred to [facility]. #GI bleed #Hx PUD -per GI s/p EGD/Colonoscopy at [facility] on 11/07/2024. CTA without evidence of active hemorrhage, showed mild wall thickening and inflammation of the duodenum and the distal rectosigmoid colon suggestive of enterocolitis. EGD showed spurting duodenal ulcer with a visible vessel, injected and treated with heater probe. Colonoscopy noted blood in the entire examined colon. -Avoid NSAIDs -IV Protonix BID -continue CLD per GI recs, advance per their recs -CLD -GI no plans for further EGD at this time #Generalized weakness, debility -I will add PTOT for eval #UTI- recent Enterococcus infection, follow urine culture. ICU started on vancomycin with no further recs. I will monitor vanc trough and daily BMP to monitor for nephrotoxicity while on this high risk IV medication. I will consult ID for further recs.Can likely change to amoxicillin based off previous cultures #Acute blood loss anemia- Hgb 8.6 (9.1), stable. Daily CBC. Monitor for bleeding (more content not included)... [facility] 11-09-2024 Note HNO ID: [id number] Author: OMAIRA BARNES RN Service: Care Management Author Type: Registered Nurse Type: Care Mgt Progress Note Filed: 11/09/2024 14:38 Note Text: CARE MANAGEMENT PROGRESS NOTE SERVICE DATE: 11/09/2024 SERVICE TIME: 2:38 PM LOS: 1 day IMM Follow Up Copy Given: Yes Copy given to:: Patient Method: In Person Patient verbalized understanding. SIGNATURE: Omaira Barnes RN PATIENT NAME: Abelardo Ivory DATE: November 09, 2024 TIME: 2:[address] [facility] 11-09-2024 Note HNO ID: [id number] Author: OMAIRA BARNES RN Service: Care Management Author Type: Registered Nurse Type: Care Mgt Progress Note Filed: 11/09/2024 10:00 Note Text: CARE MANAGEMENT PROGRESS NOTE SERVICE DATE: 11/09/2024 SERVICE TIME: 9:57 AM LOS: 1 day Needs Prior to Discharge: To Be Determined Chart reviewed. At this time, plan is to be determined pending clinical progress. Family to transport at discharge when medically ready if appropriate. Family aware patient may need to transport home with portable oxygen tank pending O2 needs. CM spoke with Radha Johnson and confirmed patient's oxygen script is for 2 L continuous NC and 3L NC with exertion. CM to follow for transitional needs. SIGNATURE: Omaira Barnes RN PATIENT NAME: Abelardo Ivory DATE: November 09, 2024 TIME: 9:[address] [facility] 11-09-2024 Note HNO ID: [id number] Author: ROM RICO MD Service: Critical Care Author Type: Physician Type: Progress Notes Filed: 11/09/2024 13:08 Note Text: MICU PROGRESS NOTE [facility] staff physician note of personal involvement in care: I have reviewed the progress note obtained and documented by the resident and I personally participated in the howard components. I have discussed the case and management of the patient's care. The following comments revise or confirm relevant howard components of the note and have added additional documentation as needed. Impression: Mr Ivory is a 74 year old white gentleman with PMH of peptic ulcer disease, bladder cancer s/p TURP, recent UTI, AAA s/p repair for rupture in 2021, AVR, COPD, CAD s/p CABG, HTN, HL, and active smoker presented for GI bleed and found to have the following. Acute blood loss anemia s/p 2 units of PRBC at OSH - stable now Acute upper GI bleed from bleeding DU s/p cautery and injection with epi at OSH on 11/07 - no active bleeding anymore Bleeding DU with a visible vessel s/p interventions as above History of peptic ulcer disease UTI with recent history of Enterococcal UTI History of bladder cancer s/p TURP and on chemo COPD Active smoker DNR-CCA and DNI Recs: - monitor H/H - transfuse as needed - c/w PPI BID - liquid diet per GI - appreciate GI input - BDs - smoking cessation strongly encouraged - okay for floor Some portions of this note were copied from previous notes so as to provide important historical information essential in contributing to medical decision making today. Copied portions of this note were carefully reviewed and edited as needed today so as to accurately reflect my own independent evaluation on this patient. Rom Rico MD, [facility] Pulmonary and Critical Care Medicine = PATIENT NAME: Abelardo Ivory REASON FOR ADMISSION: GI Bleed LOS: 1 Subjective HPI Mr. Abelardo Ivory is a 74 year old male with PMH: -Peptic ulcer disease -Bladder cancer s/p recent reported TURP and currently undergoing chemo -Hx of AAA s/p rupture s/p repair reported ~2021 -Hx aortic valve replacement -B/l carotid stenosis -COPD (last PFTs in EMR 04/17/2021 revealed moderately severe obstruction, with significant bronchodilator response by FVC criteria. Increased TLC indicating hyperinflation. RV + RV/TLC elevated indicating air trapping. Normal diffusing capacity). -CAD s/p CABG -CKD stage IIIb -HTN -HLD -Tobacco use Patient presented to [facility] on 11/07/2024 from [place], with complaints of sudden, large BRBPR at home, prompting ED visit. History was obtained from patient, paper chart from [place], and sign-out given by ICU ISADORA from helicopter. Portable DNR-DNI was also transported along with patient. In the ED, GI bleeding continued and reportedly darkened. SBP was reportedly in the 70s transiently. He underwent upper and lower endoscopies, which revealed a spurting duodenal ulcer with a visible vessel with injection/heater probe (I.e. was reportedly cauterized) although no formal upper endoscopy report was available. Colonoscopy report was notable for significant bleeding and significant amounts of friable tissue, thus prompting the decision to transferpatient to a facility equipped with IR. He received 2 units of pRBCs dueto the active bleed, with improvement in Hgb to 10.6 (was reportedly <8). Last lactate in [place] ICU was reportedly 2.2. He was also started on a pantoprazole drip and NS at 100 cc/hr. In addition, patient reported urinary frequency / incontinence and was noted to have positive UTI, for which he was given IV ceftriaxone. En route, he continued to have urinary incontinence, as well as penile pain for which he was given 2 doses of fentanyl 50 mcg (total 100 mcg). Also en route, he reportedly had O2 saturation in the 90s for which he was placed on 2L NC. On arrival at [facility], patient was hemodynamically stable on continuous IV fluids at 100 cc/hr, saturating 92% on 2L NC, and afebrile. He reports urinary incontinence, but no fevers, chills, sweats, chest pain, dyspnea, or abdominal pain. INTERVAL EVENTS Summary: Mr. Abelardo Ivory is a 74 year old male with a PMHx of peptic ulcer disease, Bladder cancer s/p reported TURP (currently undergoing chemo), hx of AAA s/p rupture, hx of AAA s/p rupture, COPD, CAD s/p CABG, CKD stage IIIb who presented to [facility] on 11/07 from [place] with complaints of sudden, large BRBPR at home. In the ED, systolics were reportedly in the 70s transiently and underwent upper and lower endoscopies with a spurting duodenal ulcer with a visible vessel with injection/heater probe which was cauterized. He received 2 units of pRBCs due to the active bleed, with improvement in the Hgb to 10.6 (was reportedly < 8). Urinalysis showed presence of UTI, (more content not included)... [facility] 11-08-2024 Note HNO ID: [id number] Author: ROM RICO MD Service: Critical Care Author Type: Physician Type: Progress Notes Filed: 11/08/2024 18:04 Note Text: MICU PROGRESS NOTE [facility] staff physician note of personal involvement in care: I have reviewed the progress note obtained and documented by the resident and I personally participated in the howard components. I have discussed the case and management of the patient's care. The following comments revise or confirm relevant howard components of the note and have added additional documentation as needed. Impression: Mr Ivory is a 74 year old white gentleman with PMH of peptic ulcer disease, bladder cancer s/p TURP, recent UTI, AAA s/p repair for rupture in 2021, AVR, COPD, CAD s/p CABG, HTN, HL, and active smoker presented for GI bleed and found to have the following. Acute blood loss anemia s/p 2 units of PRBC at OSH Acute upper GI bleed from bleeding DU s/p cautery and injection with epi at OSH on 11/07 Bleeding DU with a visible vessel History of peptic ulcer disease UTI with recent history of Enterococcal UTI History of bladder cancer s/p TURP and on chemo DNR-CCA and DNI Recs: - monitor H/H - transfuse as needed - PPI BID - okay for liquid diet if okay with GI - appreciate GI input - ICU monitoring This patient has a high probability of sudden, clinically significant deterioration, which requires the highest level of physician preparedness to intervene urgently. I managed/supervised life or organ supporting interventions that required frequent physician assessment. I devoted my full attention to the direct care of this patient for the amount of time indicated below. Time I spent with family or surrogate(s) is included only if the patient was incapable of providing the necessary information or participating in medical decision making. Time devoted to teaching and to any procedures I billed separately is not included. Critical Care Documentation: The patient has the following organ/system impairment(s): Acute blood loss, Complex life-threatening medical problem(s), and acute GI bleeding Time spent providing critical care services: 33 minutes excluding any procedure time Rom Rico MD, FCCP Pulmonary and Critical Care Medicine = PATIENT NAME: Abelardo Ivory REASON FOR ADMISSION: GI Bleed LOS: 0 Subjective HPI Mr. Abelardo Ivory is a 74 year old male with PMH: -Peptic ulcer disease -Bladder cancer s/p recent reported TURP and currently undergoing chemo -Hx of AAA s/p rupture s/p repair reported ~2021 -Hx aortic valve replacement -B/l carotid stenosis -COPD (last PFTs in EMR 04/17/2021 revealed moderately severe obstruction, with significant bronchodilator response by FVC criteria. Increased TLC indicating hyperinflation. RV + RV/TLC elevated indicating air trapping. Normal diffusing capacity). -CAD s/p CABG -CKD stage IIIb -HTN -HLD -Tobacco use Patient presented to [facility] on 11/07/2024 from [place], with complaints of sudden, large BRBPR at home, prompting ED visit. History was obtained from patient, paper chart from [place], and sign-out given by ICU ISADORA from helicopter. Portable DNR-DNI was also transported along with patient. In the ED, GI bleeding continued and reportedly darkened. SBP was reportedly in the 70s transiently. He underwent upper and lower endoscopies, which revealed a spurting duodenal ulcer with a visible vessel with injection/heater probe (I.e. was reportedly cauterized) although no formal upper endoscopy report was available. Colonoscopy report was notable for significant bleeding and significant amounts of friable tissue, thus prompting the decision to transferpatient to a facility equipped with IR. He received 2 units of pRBCs dueto the active bleed, with improvement in Hgb to 10.6 (was reportedly <8). Last lactate in [place] ICU was reportedly 2.2. He was also started on a pantoprazole drip and NS at 100 cc/hr. In addition, patient reported urinary frequency / incontinence and was noted to have positive UTI, for which he was given IV ceftriaxone. En route, he continued to have urinary incontinence, as well as penile pain for which he was given 2 doses of fentanyl 50 mcg (total 100 mcg). Also en route, he reportedly had O2 saturation in the 90s for which he was placed on 2L NC. On arrival at [facility], patient was hemodynamically stable on continuous IV fluids at 100 cc/hr, saturating 92% on 2L NC, and afebrile. He reports urinary incontinence, but no fevers, chills, sweats, chest pain, dyspnea, or abdominal pain. INTERVAL EVENTS Summary: Mr. Abelardo Ivory is a 74 year old male with a PMHx of peptic ulcer disease, Bladder cancer s/p reported TURP (currently undergoing chemo), hx of AAA s/p rupture, hx of AAA s/p rupture, COPD, CAD s/p CABG, CKD stage IIIb who (more content not included)... [facility] 11-08-2024 Note HNO ID: [id number] Author: OMAIRA BARNES RN Service: Care Management Author Type: Registered Nurse Type: Care Mgt Initial Assessment Filed: 11/08/2024 10:05 Note Text: CARE MANAGEMENT: ASSESSMENT AND DISCHARGE PLAN SERVICE DATE: November 08, 2024 SERVICE TIME: 09:47 AM PCP: Padmini Carrasco MD Primary Contact: Extended Emergency Contact Information Primary Emergency Contact: Emery Ivory JACKIECECILIA Mobile Relation: Son Secondary Emergency Contact: Kary Chadwick Mobile Relation: Daughter Admission Status: Inpatient Insurance Provider: MEDICARE A AND B Discharge Planning requested by: Per Department Practice Potential Transition Plans To Be Determined Advance Directives Current Advance Directive: Living Will, Health Care Power of Safety Coordinator In Chart: Yes Up To Date and Valid: Yes Current Living Arrangements and Support Lives with: Alone Type of Residence: Private Residence (Apartment or Condo) Does the patient have to climb stairs at home?: Yes, stairs outside the home (1 stair outside the home) Support: Children How do you manage to accomplish the following: Independent: Ambulation, Bathe/Shower, Transportation to appointments/community, Dress, Meals/Meal Prep, Going to the bathroom, Medication Management Current Services/Equipment Current Post-Acute Service(s): DME Current DME Type: Nebulizer, Oxygen, Walker Discharge Planning Patient Goal(s): Independent living, Be able to go home, General wellness, Wean off of O2 [place] of Choice Explained: [place] Given: No Reason Not Given: Unable to complete with this assessment - revisit Are you interested in bedside delivery of your medications? No Discharge Planning Participant(s): Patient, Family Patient/Family Comments: Fab Pepper at the bedside Caregiver Assessment: Caregiver is ready, willing and able to meet the patient's needs as recommended by the inter-professional team: No Transport at Discharge: Transportation Arrangements: Car Needs Prior to Discharge: Needs Prior to Discharge: To Be Determined Post-Acute Discharge Plan: Met with patient at bedside. He states he lives at home alone and was independent [employer]. Patient lives in an apartment and has 1 step outside of the apartment. Patient states he currently drives. Denies current use of HHC. Patient states he has home O2 with concentrator and portable oxygen tank, provider is [facility] in [place]. Patient states he wears 2L NC PRN. DME +. Denies financial assistance needs. At this time, plan is to be determined pending clinical progress. Family to transport at discharge when medically ready. Family aware patient may need to transport home with portable oxygen tank pending O2 needs. CM to follow for transitional needs. SIGNATURE: Omaira Barnes RN PATIENT NAME: Abelardo Ivory DATE: November 08, 2024 TIME: 9:[address] [facility] 11-08-2024 Note HNO ID: [id number] Author: ABIDA BERRY APRN.OJ Service: ? Author Type: Nurse Practitioner Type: Progress Notes Filed: 11/08/2024 02:49 Note Text: Critical Care Transport Note Patient Name: Abelardo Ivory Service Date: 11/07/2024 Referring Physician: Jasmyne Accepting Physician: Yakov Referring Facility: [facility] Accepting Facility: [facility] SUBJECTIVE/CHIEF COMPLAINT: GI Bleed REASON FOR TRANSPORT: Specialty services not available at current facility History of Present Illness: The following history is what was known to CCT team at time of given care and summarized through: review of available medical records Abelardo Ivory is a 74 year old male with a past medical history significant for HTN, HLD, AVR and AAA repair who is current in treatment for bladder CA who presented to [place] ER with c/o bright red bloody stool. Upon arrival to the ER, he continued to have stool x 2 which appeared more dark with clots. Hbg 7.8. BP transiently in 70's and IVF and 2 units PRBC administered with good response. The patient was urgently taken to endoscopy for EGD and colonoscopy. Colonoscopy showed fryable tissue but negative for active bleeding. EGD showed bleeding gastric ulcer which was cauterized. The patient was started on Protonix infusion and transferred to ICU. No further bowel movements noted. Repeat Hbg 10.6. Lactate 2.2. No evidence of active bleeding. OSH physician with concern for re-bleed 2/2 tissue character and is requesting critical medical autolaunch to an IR capable facility. At this time, the physician managing the patient requested transfer to [facility] for tertiary and/or quaternary services unavailable at the referring facility. Patient condition at time of exam was: Acutely ill and critically ill. Due to the unique circumstances of the patient, it was determined that this was the closest, most appropriate facility by referring physician. The physician managing the patient requested the [facility] Critical Care Transport Team transport and treat the patient for the purpose of tertiary care, evaluation, and management of his critical condition(s). Air medical transport was requested to reduce the qif-ov-ucwwwbxh time, 17 minutes by air vs. approximately 43 minutes by ground, with the potential for increased ground transport time secondary to: distance between facilities and the patient's condition requiring an emergent procedure or evaluation not available at the referring facility ROS: A complete review of systems was performed and is negative except as noted PAST MEDICAL HISTORY Diagnosis Date Abdominal aortic [...] LENS Left REMV CATARACT EXTRACAP,INSERT LENS Right ALLERGIES: Patient has no known allergies. SOCIAL HISTORY: SOCIAL HISTORY[1] FAMILY HISTORY Problem Relation Age of Onset Diabetes Mother Emphysema Mother Asthma Sister Kidney Disease Sister Aneurysm No Family History HOME MEDICATIONS: ondansetron (ZOFRAN) 8 mg tabletTake 1 tablet by mouth every 8 hours as needed (For chemotherapy induced nausea and vomiting.).Disp: 30 tabletRfl: 2 phenazopyridine (PYRIDIUM) 100 mg tabletTake 100 mg by mouth three times a day.Disp: Rfl: (Patient not taking: Reported on 10/02/2024) cholecalciferol, vitamin D3, (VITAMIN D-3) 10 mcg (400 unit) capTake 400 Units by mouth once daily.Disp: Rfl: amLODIPine (NORVASC) 5 mg tabletTake 5 mg by mouth once daily.Disp: Rfl: waxpqwxvqhp-drdfokkwx-uttyegcl (TRELEGY ELLIPTA) 200-62.5-25 mcg inhalation powderInhale 1 puff as instructed once daily.Disp: Rfl: acetaminophen (TYLENOL) 325 mg tabletTake 2 tablets by mouth every 4 hours.Disp: Rfl: rosuvastatin (CRESTOR) 5 mg tabletTake 5 mg by mouth daily at bedtime.Disp: Rfl: aspirin 81 mg chewable tabletTake 1 tablet by mouth once daily.Disp: 30 tabletRfl: 0 albuterol HFA (PROAIR HFA) 90 mcg/actuation inhalerInhale 2 Puffs as instructed every 4 hours as needed for Wheezing/Shortness of Breath.Disp: 1 Inh (more content not included)... [facility] 11-08-2024 Consult note Note Date/Time November 07, 2024 11:10pm [facility] Medical Records Department [address] [place] [address] Anesthesia Postop Eval II 11/07/242202 MR#: [id number] Acct: [id number] Name: ABELARDO IVORY Rep #:[id number] : 1950 74 From: Raymond Spann PCP: Dr. Padmini Carrasco MD Status :REG SDC Y Race: C Location: ICU ICU03 - Anesthesia Postop Eval I Sum Postop Eval Completion status Anesthesia document: Postop Eval 1 completed: Yes Anesthesia Postop Eval I Summary Anesthesia Postop Eval I Summary: Anesthesia Postop Eval I: Assessment Summary Airway patent Yes 11/07/24 22:02 Spontaneous unlabored Yes 11/07/24 22:02 respirations Mental status Awake,Calm 11/07/24 22:02 nausea No 11/07/24 22:02 Vomiting No 11/07/24 22:02 Anesthesia Postop Eval I: Fluid Summary Crystalloid volume administer 400 11/07/24 22:02 (ml) Colloids volume administered ( ml) Blood Product volume administered (ml) Total IV fluid infused 400 11/07/24 22:02 Anesthesia Postop Eval I: Summary Notes Anesthesia Complication No 11/07/24 22:02 Anesthesia Complication Comment: Post-operative progress note Patient was 11/07/24 22:02 transported to the ICU. Report given to ICU staff. Patient was HDS on arrival and following commands as well as conversing Anesthesia: Postop Eval II Evaluation Mental status: Awake and Calm Pain Level: 1 nausea: No Vomiting: No Progress Note Post-operative progress note: Patient evaluated in the ICU. HDS. No anesthetic complications Complications Anesthesia Complication: No 11/07/242202 <Electronically signed by Raymond Anthony MD> Date _ Ramyond Anthony MD Cosigner Signature: Date CC: ~ Signed [facility] Work Phone: [phone]) 575-191610-02-2025 Discharge summary Author Con Pena [facility] Note Date/Time November 07, 2024 11 :10pm [facility] Medical Records Department [address] [place] [address] Emergency Department Summary 11/07/24 MR#: [id number] Acct: [id number] Name: ABELARDO IVORY Rep #:[id number] : 1950 74 From: Con fregoso DO PCP: Dr. Padmini Carrasco MD Status :[facility] Location: ICU ICU03-1 HPI History of Present Illness Chief Complaint: GI Bleed Narrative Narrative: Chief complaint and HPI: 74-year-old gentleman with past medical history of bladder cancer status post transurethral section of the large bladder mass on 06/27/[address] Winston with 5 weeks of radiation and 2 cycles of chemotherapypresents for evaluation of bright red blood per rectum. Patient states he finished his last chemotherapy on 10/19/2024 and his last radiation on 10/22/2024. States today he had bright red blood per rectum that has become darker after multiple bowel movements. He denies any fever, chills, shortness of breath, chest pain, abdominal pain, nausea, vomiting, dysuria. Review of systems: See HPI Medications: As listed on the chart Allergies: As listed on the chart PFSH: Per chart Vital signs: As listed on the chart. Reviewed. Physical exam: Gen: A&O x3, NAD Head: Normocephalic, atraumatic Eyes: No sclera icterus, conjunctiva clear ENT: Moist mucous membranes Neck: Trachea midline CV: RRR, no murmurs, no peripheral edema Resp: Lungs CTA BL, no w/r/c GI: Abd soft, non-distended, non-tender, no r/r/g Rectal: Normal external examination. No evidence of hemorrhoids or fissures. Normal tone and sensation. No masses, fluctuance, or tenderness. No pain out of proportion. 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 Intention tremor Carotid stenosis, bilateral Hyperlipidemia Nonrheumatic aortic (valve) stenosis Essential hypertension Tobacco dependence Bilateral inguinal hernia Left carotid bruit Abdominal aortic aneurysm (AAA) Anemia Subcutaneous mass of back PUD (peptic ulcer disease) Cough Arthritis Home Medications ?Medication ?Instructions ?Recorded ?Last Taken ?Type aspirin 81 mg tablet,delayed 81 mg PO DAILY heart heal th 03/02/22 01/12/24 History release rosuvastatin 5 mg tablet (Crestor) 5 mg PO DAILY uzma sterol 03/02/22 03/02/22 History amlodipine 5 mg tablet 5 mg PO DAILY #30 tabs 02/28 Unknown Rx cholecalciferol (vitamin D3) 25 25 mcg PO DAILY Unknown History mcg (1,000 unit) capsule metoprolol tartrate 25 mg tablet 12.5 mg (1/2 x 25 mg) PO BID #90 03/22/24 06/27/24 05:30 Rx tabs acetaminophen 500 mg capsule 1,000 mg PO Q6H PRN pain 06/13/24 Unknown History fluticasone fur. 200 mcg-umeclid 1 inh inhalation RUFINA Y PRN SOB 06/13/24 Unknown History 62.5 mcg-vilant 25 mcg inhalat.powder (Trelegy Ellipta) Allergy/AdvReac Type Severity Reaction Status Date / Time No Known Allergies Allergy Verified 11/07/24 15:31 Family History Sister Asthma Mother Arthritis Diabetes Brother Cancer Unsure what kind- just a lump on his neck Surgical History Neoplasm of bladder Hx of inguinal hernia repair S/P inguinal hernia repair History of cardiac catheterization S/P AAA repair 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) History of left heart catheterization (11/27/18) History of aortic valve replacement (02/12/19) Social History (Updated 11/07/24 @ 20:[address] Suzanne Medley MD) household members: none Smoking Status: Current every day smoker tobacco type: cigarettes quit status: has quit before alcohol intake: never substance use type: does not use caffeine: Yes Type: coffee Number of servings: 3 what type of physical activity do you participate in: other frequency: 3-4 times per week seatbelt use: always EXAM Physical Exam Const Vital Signs: 11/07/24 15:32 11/07/24 15:57 11/07/24 16:35 Temperature 96.1 F L Temperature Source Temporal Pulse Rate 79 79 Respiratory Rate 18 16 Respiratory Effort Respiratory Depth Respiratory Pattern Blood Pressure 83/63 L 102/72 132/75 H Blood Pressure Mean 69 82 94 Blood Pressure Source Blood Pressure Position Blood Pressure Location Pulse Ox 97 92 Oxygen Delivery Method Room Air Room Air Oxygen Flow Rate (L/min) 11/07/24 17:00 11/07/24 18:00 11/07/24 18:35 Temperature Temperature Source Pulse Rate 76 110 H 79 Respiratory Rate 30 H 18 Respiratory Effort Respiratory Depth Respiratory Pattern Blood Pressure 144/75 H 142/126 H Blood Pressure Mean 98 131 Blood Pressure Source Blood Pressure Position Blood Pressure Location Pulse Ox 99 Oxygen Delivery Method Nasal Cannula Oxygen Flow Rate (L/min) 11/07/24 18:45 11/07/24 18:48 11/07/24 18:54 Temperature 96.6 F L Temperature Source Temporal Pulse Rate 81 77 Respiratory Rate 16 Respiratory Effort Respiratory Depth Respiratory Pattern Blood Pressure 128/114 H 77/60 L 78/55 L Blood Pressure Mean 118 65 62 Blood Pressure Source Blood Pressure Position Blood Pressure Location Pulse Ox 92 Oxygen Delivery Method Oxygen Flow Rate (L/min) 11/07/24 19:00 11/07/24 19:00 11/07/24 19:10 Temperature 97.3 F L 97.3 F L 97.3 F L Temperature Source Temporal Temporal Temporal Pulse Rate 76 72 75 Respiratory Rate 22 H 17 20 H Respiratory Effort Respiratory Depth Respiratory Pattern Blood Pressure 95/63 112/73 113/71 Blood Pressure Mean 73 86 85 Blood Pressure Source Monitor Blood Pressure Position Blood Pressure Location Pulse Ox 98 97 Oxygen Delivery Method Nasal Cannula Nasal Cannula Oxygen Flow Rate (L/min) 2 11/07/24 19:19 11/07/24 19:37 11/07/24 19:45 Temperature 97.6 F L 97.6 F L Temperature Source Temporal Pulse Rate 74 78 74 Respiratory Rate 16 16 14 Respiratory Effort Respiratory Depth Respiratory Pattern Blood Pressure 125/43 H 124/43 H 130/91 H Blood Pressure Mean 70 70 104 Blood Pressure Source Monitor Blood Pressure Position Semi-Fowlers Blood Pressure Location Right Arm Pulse Ox 98 98 100 Oxygen Delivery Method Nasal Cannula Oxygen Flow Rate (L/min) 2 11/07/24 20:10 11/07/24 20:28 11/07/24 21:51 Temperature 97.6 F L 98.0 F Temperature Source Temporal Pulse Rate 78 84 72 Respiratory Rate 16 18 20 H Respiratory Effort Respiratory Depth Respiratory Pattern Normal Blood Pressure 124/43 H 122/79 H 129/83 H Blood Pressure Mean 93 98 Blood Pressure Source Monitor Monitor Blood Pressure Position Semi-Fowlers Semi-Fowlers Blood Pressure Location Right Arm Right Arm Pulse Ox 98 100 100 Oxygen Delivery Method Nasal Cannula Nasal Cannula Simple Mask Oxygen Flow Rate (L/min) 2 2 3 11/07/24 21:56 11/07/24 22:01 11/07/24 22:02 Temperature 96.4 F L 36 F L Temperature Source Temporal Pulse Rate 75 75 72 Respiratory Rate 14 19 H 15 Respiratory Effort Respiratory Depth Respiratory Pattern Blood Pressure 139/89 H 134/120 H 129/80 H Blood Pressure Mean 105 124 Blood Pressure Source Monitor Monitor Blood Pressure Position Semi-Fowlers Semi-Fowlers Blood Pressure Location Right Arm Right Arm Pulse Ox 100 100 100 Oxygen Delivery Method Nasal Cannula Room Air Venturi Mask Oxygen Flow Rate (L/min) 2 8 11/07/24 22:05 11/07/24 22:08 11/07/24 22:10 Temperature Temperature Source Pulse Rate 75 77 Respiratory Rate 19 H Respiratory Effort Normal Non-Labored Respiratory Depth Normal Respiratory Pattern Normal Blood Pressure 145/119 H Blood Pressure Mean 127 Blood Pressure Source Monitor Blood Pressure Position Semi-Fowlers Blood Pressure Location Right Arm Pulse Ox 97 Oxygen Delivery Method Room Air Room Air Oxygen Flow Rate (L/min) 11/07/24 22:15 11/07/24 22:30 11/07/24 22:45 Temperature Temperature Source Pulse Rate 77 78 82 Respiratory Rate 21 H 18 18 Respiratory Effort Respiratory Depth Respiratory Pattern Blood Pressure 155/112 H 119/65 138/111 H Blood Pressure Mean 126 83 120 Blood Pressure Source Monitor Monitor Monitor Blood Pressure Position Semi-Fowlers Semi-Fowlers Semi-Fowlers Blood Pressure Location Right Arm Right Arm Right Arm Pulse Ox 97 95 94 Oxygen Delivery Method Room Air Room Air Room Air Oxygen Flow Rate (L/min) MDM MDM MDM Narrative Medical decision making narrative: 74-year-old gentleman with past medical history of bladder cancer status post transurethral section of the large bladder mass on 06/27/[address] Winston with 5 weeks of radiation and 2 cycles of chemotherapy presents for evaluation of bright red blood per rectum. Patient states he finished his last chemotherapy on 10/19/2024 and his last radiation on 10/22/2024. States today he had bright red blood per rectum that has become darker after multiple bowel movements. History is taken by patient as well as post operative report by Dr. Winston. On chart review, patient also has a history of a AAA repair. Differential diagnosis includes but is not limited to lower GI bleed from radiation proctocolitis, aortic enteric fistula, colitis, diverticulosis, anemia. On presentation, patient is pale and hypotensive. NS bolus ordered. Blood pressure quickly improved. GI bleed workup ordered including CTA abdomen and pelvis. CBC without leukocytosis. Patient has anemia with hemoglobin of 9.1. Platelets normal. CMP shows mild hypokalemia of 5.1 with CKD. BUN 47 creatinine 2.09. Appears patient's baseline. No transaminitis. Lipase unremarkable. Lactic acid 2.2. Patient receiving fluids. While waiting for CTA abdomen and pelvis results. Patient has had multiple bloody bowel movements. He is becoming tachycardic, tachypneic, hypotensive. 1 unit trauma blood ordered with type and screen, coagulation panel, repeat H&H, troponin, chest x-ray, EKG. EKG and chest x-ray reviewed. Troponin unremarkable. Coagulation panel unremarkable. Repeat hemoglobin 7.8. Patient remains hypotensive. Another unit trauma blood ordered. CTA abdomen pelvis still pending at this time. I have called multiple times to radiology for a read. I do not see an obvious blush on imaging. Given that patient is decompensating, Dr. Floyd was consulted for GI bleed and likely need of endoscopy. Patient was discussed withDr. Floyd. He would like CTA results prior to endoscopy to locate bleed. Blood pressure improving. UA positive for UTI. Urine culture sent. Rocephin ordered. While waiting for CTA results, it was reported to me by nursing staff that patient was taken out of the emergency department by surgery staff for endoscopy. CTA resulted shortly later with no evidence of active gastrointestinal hemorrhage. Mild wall thickening and inflammatory changes involving the proximal duodenum, and distal rectosigmoid colon suggestive of enterocolitis. Marked wall thickening of the bladder with surrounding inflammatory fat stranding. Left hydroureteronephrosis. Evidence of left uritis/pyelitis. Stable appearance of irregular diffuse fusiform aneurysm dilation of the infrarenal renal abdominal aorta and bilateral common iliac arteries, with eccentric noncalcified plaque/mild thrombus. After receiving theCTA results, I did consult Dr. Floyd. He was updated. He spoke with the hospitalist service who would prefer patient be transferred after endoscopy. Hospitalist was contacted and patient was discussed. Prefers patient to be transferred however given that they are now out of the emergency department and unable to initiate this transfer. They will admit to the ICU and arrange transfer. EKG: Interpreted by me/EM physician: EKG shows normal sinus rhythm without any acute ischemic changes heart rate 87 Diagnostic: Interpreted by me/EM physician: Chest x-ray without pneumonia, effusion, cardiomegaly, pneumothorax 45 minutes of critical care time utilized in managing the patient. This is due to high probability of and deterioration of the patient based on the patient's condition and excludes any separately billable procedures. Impression: 1. GI bleed 2. Acute on chronic anemia requiring blood transfusion secondary to #1 3. Hypotension secondary to #1 4. UTI 5. Lactic acidosis secondary to #1 6. Mild hyperkalemia Lab Data Labs: Laboratory Results - last 24 hr 11/07/24 11/07/24 11/07/24 15:55 17:26 17:57 WBC 10.8 RBC 3.01 L Hgb 9.1 L 7.8 L Hct 29.2 L MCV 97.0 H MCH 30.2 MCHC 31.2 L RDW Std Deviation 55.2 H RDW Coeff of Manjit 15.6 H Plt Count 229 MPV 8.9 Immature Gran % (Auto) 0.700 Neut % (Auto) 76.0 H Lymph % (Auto) 11.8 L [place] % (Auto) 9.8 Eos % (Auto) 1.1 Baso % (Auto) 0.6 Absolute Neuts (auto) 8.2 H Absolute Lymphs (auto) 1.27 Nucleated RBC % 0 PT INR APTT Sodium 141 Potassium 5.3 H Chloride 106 Carbon Dioxide 22.6 Anion Gap 12 BUN 47 H Creatinine 2.09 H Est GFR (MDRD) Non-Af 33 L BUN/Creatinine Ratio 22.4 H Glucose 139 H Lactic Acid 2.2 H* Calcium 8.3 Phosphorus 4.5 Magnesium 2.1 Total Bilirubin 0.15 AST 14 ALT 9 Alkaline Phosphatase 68 Troponin T High Sens 16 Total Protein 5.7 L Albumin 3.3 L Globulin 2.4 Albumin/Globulin Ratio 1.4 Lipase 43 Urine Color Straw Urine Clarity Cloudy Urine pH 6.0 Ur Specific [place] 1.015 Urine Protein 100 H Urine Glucose (UA) Normal Urine Ketones Negative Urine Occult Blood 50 H Urine Nitrite Negative Urine Bilirubin Negative Urine Urobilinogen Normal Ur Leukocyte Esterase 500 H Urine RBC 5-10 SEEN Urine WBC >100 SEEN Ur Squamous Epith Cells 0-5 SEEN Ur Transition Epith Cell 0-5 SEEN Urine Bacteria 2+ Urine Mucus 0 SEEN Blood Type Antibody Screen Crossmatch 11/07/24 11/07/24 11/07/24 18:30 18:40 18:40 WBC RBC Hgb Hct MCV MCH MCHC RDW Std Deviation RDW Coeff of Manjit Plt Count MPV Immature Gran % (Auto) Neut % (Auto) Lymph % (Auto) [place] % (Auto) Eos % (Auto) Baso % (Auto) Absolute Neuts (auto) Absolute Lymphs (auto) Nucleated RBC % PT 14.5 INR 1.1 APTT 26.5 Sodium Potassium Chloride Carbon Dioxide Anion Gap BUN Creatinine Est GFR (MDRD) Non-Af BUN/Creatinine Ratio Glucose Lactic Acid Calcium Phosphorus Magnesium Total Bilirubin AST ALT Alkaline Phosphatase Troponin T High Sens Total Protein Albumin Globulin Albumin/Globulin Ratio Lipase Urine Color Urine Clarity Urine pH Ur Specific [place] Urine Protein Urine Glucose (UA) Urine Ketones Urine Occult Blood Urine Nitrite Urine Bilirubin Urine Urobilinogen Ur Leukocyte Esterase Urine RBC Urine WBC Ur Squamous Epith Cells Ur Transition Epith Cell Urine Bacteria Urine Mucus Blood Type A POSITIVE Antibody Screen NEGATIVE Crossmatch See Detail See Detail 11/07/24 11/07/24 11/07/24 18:40 20:15 22:16 WBC 8.5 RBC 3.51 L Hgb 10.6 L 10.4 L Hct 33.7 L 32.8 L MCV 96.0 H MCH 30.2 MCHC 31.5 L RDW Std Deviation 53.2 H RDW Coeff of Manjit 15.3 H Plt Count 156 MPV 8.9 Immature Gran % (Auto) 0.900 Neut % (Auto) 80.9 H Lymph % (Auto) 9.2 L [place] % (Auto) 8.1 Eos % (Auto) 0.4 Baso % (Auto) 0.5 Absolute Neuts (auto) 6.9 Absolute Lymphs (auto) 0.78 L Nucleated RBC % 0 PT INR APTT Sodium Potassium Chloride Carbon Dioxide Anion Gap BUN Creatinine Est GFR (MDRD) Non-Af BUN/Creatinine Ratio Glucose Lactic Acid Calcium Phosphorus Magnesium Total Bilirubin AST ALT Alkaline Phosphatase Troponin T High Sens Total Protein Albumin Globulin Albumin/Globulin Ratio Lipase Urine Color Urine Clarity Urine pH Ur Specific [place] Urine Protein Urine Glucose (UA) Urine Ketones Urine Occult Blood Urine Nitrite Urine Bilirubin Urine Urobilinogen Ur Leukocyte Esterase Urine RBC Urine WBC Ur Squamous Epith Cells Ur Transition Epith Cell Urine Bacteria Urine Mucus Blood Type Antibody Screen Crossmatch See Detail Radiography Diagnostic Testing: Clinical Impression(s) from Imaging Studies Abdomen/Pelvis CTA 11/07/24 15:42 IMPRESSION: 1. No CT evidence for active gastrointestinal hemorrhage. 2. Mild wall thickening and inflammatory changes involving the proximal duodenum, and distal rectosigmoid colon suggestive of enterocolitis. Nonspecific diarrheal illness with fluid in the colon. 3. Marked wall thickening of the bladder with surrounding inflammatory fat stranding, may be infectious/inflammatory or related to known neoplasm. Possibly treatment related change. 4. Similar mild left hydroureteronephrosis. Evidence of left ureteritis/pyelitis. 5. Stable appearance of irregular diffuse fusiform aneurysmal dilatation of the infrarenal abdominal aorta and bilateral common iliac arteries, with eccentric noncalcified plaque/mural thrombus. Reading Location: [facility] Chest X-Ray 11/07/24 18:53 IMPRESSION: No focal consolidation. Extensive pulmonary emphysema. Reading Location: [facility] Discharge Plan Disposition Disposition: Acute Care Hospital [facility] Discharge Date/Time: 11/07/24 20:14 What to do if you have Problems For any increased pain, shortness of breath, bleeding, nausea or vomiting, chestpain, or any unexpected problems, contact your Primary Care Provider. Call [facility] ([phone]) or report to the closest Emergency Room. Call 911 if necessary. 11/07/24 2322 <Electronically signed by Con Pena DO> Cosigner Signature (if applicable): CC: Dr. Padmini Carrasco MD ~ Signed [facility] Work Phone: 1(892) 656-374310-02-2025 Discharge summary Author [facility] Note Date/Time November 07, 2024 11 :10pm [facility] Medical Records Department [address] [place] [address] Discharge Summary 11/07/24 2308 MR#: [id number] Acct: [id number] Name: ABELARDO IVORY Rep #:[id number] : 1950 74 From: Suzanne Medley MD PCP: Dr. Padmini Carrasco MD Status :[facility] Location: ICU [id number] Providers Date of Admission: 11/07/24 Date of Discharge: 11/07/24 Primary Care Physician: Dr. Padmini Carrasco MD Consultations 11/07/24 21:49 Consult: Gastroenterology Routine Consulting Provider: [facility] Reason for Consult: ABLA, GI bleed, hemorrhagic shock. EMERGENT Consult: Yes MD Notified: Yes Date Notified: 11/07/24 Time Notified: 20:17 Method of Notification: ED Physician Initiated Consult: Loan Administrator / Pulmonary Medicine Routine Consulting Provider: Intensivists/Pulmonary Med Reason for Consult: Hemorrhagic shock, ABLA, GI bleed. EMERGENT Consult: No Notified: Yes Date Notified: 11/07/24 Time Notified: 20:17 Method of Notification: Text Reason For Visit: HEMORRHAGIC SHOCK, GI BLEED Diagnosis Discharge Diagnosis (1) GI bleed: Status: Acute Code(s): K92.2 - Gastrointestinal hemorrhage, unspecified (2) Hemorrhagic shock: Status: Acute Code(s): R57.8 - Other shock Plan: DISCHARGE DIAGNOSES: #1. Acute Hemorrhagic shock secondary to Acute GI Bleed (Unclear if lower component as entire bowel upper and lower with blood, upper with noted bleeding duodenal crater bleeding lesions s/p heater probe and injection with possible billroth 2 anatomical surgical presentation w/ resultant Acute Blood Loss Anemiawith associated lactic acidosis suspected primary secondary to associated hypovolemia/demand #2. Acute Complicated Urinary Tract Infection with unchanged mild left hydroureteronephrosis with evidence of a left urethritis/pyelitis, unclear organism on transition to tertiary facility #3. Lactic acidosis, Likely secondary to shock as noted #4. Hyperkalemia, mild #5. Bladder cancer s/p TUBR on chemotherapy (10/19/24 last) and radiation (10/22/24 last) following with Dr. Dawkins and Dr. Winston #6. Chronic stable appearing in for abdominal aortic aneurysm, fusiform as wellas bilateral common iliac arteries #7. Valvular heart disease status post AVR #8. CAD, Status post CABG x 1 with SVG to RCA 02/12/2019 CC #9. Chronic Kidney Disease Stage III, unclear subtype or GFR trending (baselinerenal function primarily 1.4-2.6) #10. Hypertension #11. Hyperlipidemia #12. Tobacco Abuse #13. Chronic COPD #14. CODE status: Patient HCPOA notes his daughter and son are his HCPOA and living will is currently in place. DNR-CCA, no intubation. Medications at Discharge Home Medications aspirin 81 mg tablet,delayed release 81 mg PO DAILY heart health 03/02/22 rosuvastatin 5 mg tablet (Crestor) 5 [...] 1 inh inhalation DAILY PRN SOB 06/13/24 Hospital Course Operations None Procedures Blood transfusion, Colonoscopy and EGD Summary of Care Provided Minutes Spent on Discharge: 50 Hospital Course: The patient is a 74 y/o M w/ PMHx: COPD, Bladder Cancer s/p transurethral resection on chemotherapy and [facility] Vavular heart disease status post AVR, CAD status post CABG x 1, CKD stage III unclear subtype per GFR trending, HTN, HLD, Tobacco use, AAA s/p rupture s/p repair who presented to the [facility] ED on 11/07/2024 with significant bright red blood per rectum with his last chemotherapy noted 10/19/2024 in addition to ongoing radiation with last noted 10/22/2024 with significant bright red blood ongoing eventually becoming darker with severe significant ongoing bowel movements foul-smelling in nature with no associated abdominal pain nor any nausea or emesis prompting ED evaluation. Patient did note when he started to have copious bleeding in the ED he did have some mild abdominal cramping. He denies associated lightheadedness/dizziness/dyspnea/chest pain. He notes chronic dysuria and frequency. Workup in the ED included T96.1 Temporal, heart rate 79, BP 83/63, respiratory rate 18, 97% on room air with BP at 1900 decreasing down to 77/60 and then 78/55 with a MAP of 62 improving following PRBC with most recent [id number], heart rate 78, BP 03/02/1972, respiratory rate 16, 98% oxygenation, CBC with WC 10.8, hemoglobin initially 9.1 at 1555 with repeat at 1757 noted to be hemoglobin 7.8, platelet 229 with left shift, unremarkable coags, CMP with potassium 5.3 not noted to be hemolyzed, BUN/creatinine 47/2.09, GFR 33, [id number], lactic acid 2.2, hepatic profile not marked appearing, troponin 16, urine noted to be cloudy, urine protein 100, occult blood 50, negative nitrite, leukocyte esterase 500, urine RBCs 5-10, urine WBCs greater than 100 with 2+ urine bacteria, CTA abdomen and pelvis with and without contrast with no active hemorrhaging although patient with significant active bleed in the ED which had been profuse prompting emergent transition to endoscopy for colonoscopy with , also noted mild wall thickening and inflammatory changes involving the proximal duodenum, distal rectosigmoid colon suggestive of enterocolitis, markedwall thickening of the bladder with surrounding inflammatory fat stranding, similar mild left hydroureteronephrosis with evidence of a left urethritis/pyelitis, stable appearing irregular diffuse fusiform aneurysmal dilatation of the infrarenal abdominal aorta and bilateral common iliac arterieswith eccentric noncalcified plaque/mural thrombus, chest x-ray with no acute cardiopulmonary findings however extensive pulmonary emphysema evident. In the ED patient administered 1 unit PRBC stat given hemorrhagic shock. Patient was evaluated in the endoscopy suite at [facility] on 11/07/2024 and at the time of evaluation, transfer to a tertiary hospital was felt to be in thepatient's best interest due to significant lower GI bleed, hemorrhagic shock, high concern for friability of bowel given ongoing and very recent radiation with high risk for rebleeding. Patient had transitioned from the ED to the endoscopy lab for emergent endoscopy given his hemorrhagic shock thus transfer attempts were not initiated initially in the ED. Discussed case with Dr. Lama agreed that transfer even following endoscopy would be inpatient best interest in order to have IR capabilities if necessary and higher level of care with onsite farm operations manager team should patient decompensate again. Given the need for ongoing medical care, in the interim in the best interest of the patient, will proceed with admission to [facility] ICU following endoscopy and care will be provided here until tertiary facility has an available staffed bed. Patient underwent both upper and lower endoscopies with blood throughout upper and lower thus unclear if lower component as entire bowelupper and lower with blood, upper with noted bleeding duodenal crater bleeding lesions s/p heater probe and injection with possible Billroth II anatomical surgical presentation. Patient was transition from endoscopy to the intensive care unit in [facility] was recontacted and accepted patient to their ICU. The farm operations manager given situation with profuse bleeding during endoscopy noted ongoing although vital signs had stabilized felt patient's safest best interest for immediate air flight to be set up by [facility]. Once airflight was set up and arrive patient was transitioned from [facility] intensive unit care to the [facility] Flight team. Weight / BMI Weight Weight: 144 lb 2.917 oz Body Mass Index (BMI) 23.2 ABG / Lab / Microbiology Data 11/07/24 22:16 11/07/24 15:55 Laboratory: Laboratory Results - last 24 hr 11/07/24 15:55: WBC 10.8, RBC 3.01 L, Hgb 9.1 L, Hct 29.2 L, MCV 97.0 H, MCH 30.2, MCHC 31.2 L, RDW Std Deviation 55.2 H, RDW Coeff of Manjit 15.6 H, Plt Count 229, MPV 8.9, Immature Gran % (Auto) 0.700, Neut % (Auto) 76.0 H, Lymph % (Auto)11.8 L, [place] % (Auto) 9.8, Eos % (Auto) 1.1, Baso % (Auto) 0.6, Absolute Neuts (auto) 8.2 H, Absolute Lymphs (auto) 1.27, Nucleated RBC % 0, Sodium 141, Potassium 5.3 H, Chloride 106, Carbon Dioxide 22.6, Anion Gap 12, BUN 47 H, Creatinine 2.09 H, Est GFR (MDRD) Non-Af 33 L, BUN/Creatinine Ratio 22.4 H, Glucose 139 H, Lactic Acid 2.2 H*, Calcium 8.3, Total Bilirubin 0.15, AST 14, ALT9, Alkaline Phosphatase 68, Total Protein 5.7 L, Albumin 3.3 L, Globulin 2.4, Albumin/Globulin Ratio 1.4, Lipase 43 11/07/24 17:26: Urine Color Straw, Urine Clarity Cloudy, Urine pH 6.0, Ur Specific [place] 1.015, Urine Protein 100 H, Urine Glucose (UA) Normal, Urine Ketones Negative, Urine Occult Blood 50 H, Urine Nitrite Negative, Urine Bilirubin Negative, Urine Urobilinogen Normal, Ur Leukocyte Esterase 500 H, Urine RBC 5-10 SEEN, Urine WBC >100 SEEN, Ur Squamous Epith Cells 0-5 SEEN, Ur Transition Epith Cell 0-5 SEEN, Urine Bacteria 2+, Urine Mucus 0 SEEN 11/07/24 17:57: Hgb 7.8 L, Phosphorus 4.5, Magnesium 2.1, Troponin T High Sens 16 11/07/24 18:30: PT 14.5, INR 1.1, APTT 26.5 11/07/24 18:40: Blood Type A POSITIVE, Antibody Screen NEGATIVE, Crossmatch See Detail 11/07/24 18:40: Crossmatch See Detail 11/07/24 18:40: Crossmatch See Detail 11/07/24 20:15: WBC 8.5, RBC 3.51 L, Hgb 10.6 L, Hct 33.7 L, MCV 96.0 H, MCH 30.2, MCHC 31.5 L, RDW Std Deviation 53.2 H, RDW Coeff of Manjit 15.3 H, Plt Count 156, MPV 8.9, Immature Gran % (Auto) 0.900, Neut % (Auto) 80.9 H, Lymph % (Auto)9.2 L, [place] % (Auto) 8.1, Eos % (Auto) 0.4, Baso % (Auto) 0.5, Absolute Neuts (auto) 6.9, Absolute Lymphs (auto) 0.78 L, Nucleated RBC % 0 11/07/24 22:16: Hgb 10.4 L, Hct 32.8 L Microbiology: Microbiology 11/07/24 15:45 Stool Stool Occult Blood (ASIF) - Final Occult Blood Positive Radiography Diagnostic Testing: Radiology Impression Abdomen/Pelvis CTA 11/07/24 15:42 IMPRESSION: 1. No CT evidence for active gastrointestinal hemorrhage. 2. Mild wall thickening and inflammatory changes involving the proximal duodenum, and distal rectosigmoid colon suggestive of enterocolitis. Nonspecific diarrheal illness with fluid in the colon. 3. Marked wall thickening of the bladder with surrounding inflammatory fat stranding, may be infectious/inflammatory or related to known neoplasm. Possibly treatment related change. 4. Similar mild left hydroureteronephrosis. Evidence of left ureteritis/pyelitis. 5. Stable appearance of irregular diffuse fusiform aneurysmal dilatation of the infrarenal abdominal aorta and bilateral common iliac arteries, with eccentric noncalcified plaque/mural thrombus. Reading Location: [facility] Chest X-Ray 11/07/24 18:53 IMPRESSION: No focal consolidation. Extensive pulmonary emphysema. Reading Location: [id number] Instructions DC O2, CPAP, BIPAP Needs Home O2 Discharge instructions: No Meaningful Use Info Meaningful Use Meaningful Use Diagnoses (Choose all that apply): None applicable Discharge Plan Admission Primary Reason for Your Visit: Acute GI bleed (ulcerated crater lesion duodenum), Hemorrhagic shock Attending Provider: Suzanne Medley Primary Care Provider: Padmini Carrasco Consulting Providers: Derrell Fonseca; Kamlesh Floyd; Summer Grande; Oxana Camarillo; Minda Foreman; Kaleigh Armstrong; Ritchie Juarez; Noe Suarez; Bernardo Zuñiga; Jatinder Mobley; Howie Araujo; Say Abraham; Namrata Little; Prakash Carr; Bubba Garcia; Jeffery House; Olya Meneses; Geetha Moran; Alexandrea Yap; Chris Jacobson; Alec Delacruz; Andrei Paulson; Juan M Beltran; Ricardo Juarez; Dian Gilbert; Liam Busch; Bowen Barrett; Dianelys Simon; Mckinley Griffin Instructions Print Language: Taiwanese Discharge Orders/Prescriptions Prescriptions: No Action amlodipine 5 mg tablet 5 mg PO DAILY Qty: 30 11RF aspirin 81 mg tablet,delayed release (DR/EC) 81 mg PO DAILY Patient Comments: STOP PER DR. WINSTON PRIOR TO PROCEDURE rosuvastatin [Crestor] 5 mg [...] Follow Up: Padmini Carrasco MD [Primary Care Provider, Family Practice] Disposition Disposition (needs filled in before D/C Order can be placed): Home, Self Care Charges/Coding Multi Select Codes Visit Charges Observation E&M Codin Observ/hosp same date L3 (Discharged via air flight to [facility] to their ICU, admitted same day to stabilize until tertiary acceptance.) 11/07/24 8604 <Electronically signed by Suzanne Medley MD> Cosigner Signature (if applicable): CC: Dr. Suzanne Medley MD; Dr. Padmini Carrasco MD~ Signed [facility] Work Phone: 1(984) 572-998010-02-2025 NoteHNO ID: [id number] Author: KATARINA MOORE MD Service: Critical Care Author Type: Physician Type: Progress Notes Filed: 11/08/2024 06:01 Note Text: [facility] STAFF PHYSICIAN NOTE OF PERSONAL INVOLVEMENT IN CARE I have reviewed the documentation by the resident/ ISADORA and I personally participated in the howard components. I have discussed the case and management of the patient's care. The following comments revise or confirm relevant howard components of the note. 74-year-old male presented to the [facility] ED with blood in stools. He had 2 bloody bowel movements at home where he saw initially bright red followed by dark blood with clots. In the emergency department, he had 2-3 episodes of large bloody bowel movements. He underwent emergent endoscopy where a bleeding duodenal ulcer was seen which was injected and cauterized. Patient was transferred to [facility] Because of high risk of rebleeding. He denies any abdominal pain nausea or vomiting. No previous history of GI bleed. No dizziness or lightheadedness. No chest pain or shortness of breath. 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 He received radiation treatment. Also has a history of AAA repair in 2021 and CABG with AVR in 2019. General: Awake, alert, comfortable, mucous membranes moist Cardiovascular: Regular Respiratory: Bilateral CTA Abdomen: Soft nontender nondistended Extremities: Edema-no Neurologic: Nonfocal Hemoglobin (g/dL) Date Value 10/15/2024 10.7 04/10/2019 10.9 Hematocrit (%) Date Value 10/15/2024 32.5 04/10/2019 36.8 WBC (k/uL) Date Value 10/15/2024 3.90 04/10/2019 6.44 Platelet Count (k/uL) Date Value 10/15/2024 105 04/10/2019 251 Latest Ref Rng AND Units 10/01/2024 BMP Glucose 74 - 99 mg/dL 101 BUN 9 - 24 mg/dL 34 Creatinine 0.73 - 1.22 mg/dL 2.06 Sodium 136 - 144 mmol/L 140 Potassium 3.7 - 5.1 mmol/L 4.6 Chloride 98 - 107 mmol/L 108 CO2 22 - 30 mmol/L 22 Anion Gap 8 - 15 mmol/L 10 Calcium 8.5 - 10.2 mg/dL 9.0 EGFR >=60 mL/min/1.73m? 33 IMPRESSION: Acute upper GI bleed Duodenal ulcer status postintervention Acute blood loss anemia Stage II high-grade invasive urothelial carcinoma status post radiation History of AAA repair 2021 CABG and AVR in 2019 MMP PLAN: PPI IV twice daily GI consult Stat CTA abdomen pelvis if he continues to bleed Blood pressure/hemoglobin monitoring Blood transfusion as needed N.p.o. SCDs Home meds ICU monitoring Supportive care Discussed with staff/ patient/ family This patient has a high probability of sudden, clinically significant deterioration, which requires the highest level of physician preparedness to intervene urgently. I managed/supervised life or organ supporting interventions that required frequent physician assessment. I devoted my full attention to the direct care of this patient for the amount of time indicated below. Time I spent with family or surrogate(s) is included only if the patient was incapable of providing the necessary information or participating in medical decision making. Time devoted to teaching is not included. Documentation from a previous visit was copied and pasted. It has been reviewed and edited as necessary for today's visit. Time spent providing critical care services: 50 minutes excluding procedures. SIGNATURE: Katarina Moore MD [facility] TIME of SERVICE: 12:15 [facility]10-02-2025 Consult note Author Raymond Anthony [facility] Note Date/Time November 07, 2024 10 :02pm [facility] Medical Records Department [address] [place] [address] Anesthesia Postop Eval I 11/07/240 MR#: [id number] Acct: [id number] Name: ABELARDO IVORY Rep #:[id number] : 1950 74 From: Raymond Spann PCP: Dr. Padmini Carrasco MD Status :REG SDC Y Race: C Location: ICU ICU03 -1 Anesthesia: Postop Eval I Current Vital Signs Temperature: 36 F Pulse Rate: 72 Blood Pressure: 129/80 Respiratory Rate: 15 Pulse Ox: 100 Oxygen Delivery Method: Venturi Mask Oxygen Flow Rate (L/min): 8 Assessment Airway patent: Yes Spontaneous unlabored respirations: Yes Mental status: Awake and Calm nausea: No Vomiting: No Anesthesia Complication: No Fluid Hydration Crystalloid volume administer (ml): 400 Total IV fluid infused: 400 Progress Note Post-operative progress note: Patient was transported to the ICU. Report given to ICU staff. Patient was HDS on arrival and following commands as well as conversing Anesthesia document: Postop Eval 1 completed: Yes 11/07/242201 <Electronically signed by Raymond Anthony MD> Date _ [facility] Signature: Date CC: ~ Signed [facility] Work Phone: 1(644) 815-344310-01-2025 History and physical note Author Suzanne Medley [facility] Note Date/Time November 07, 2024 9: 47pm [facility] Medical Records Department [address] [place] [address] H&P Exam - Hospitalist 11/07/242012 MR#: [id number] Acct: [id number] Name: ABELARDO IVORY Rep #:[id number] : 1950 74 From: Suzanne Medley MD PCP: Dr. Padmini Carrasco MD Status :[facility] Location: ICU ICU03-1 HPI - General General Date of Admission: 11/07/24 Date of Service: 11/07/24 Chief Complaint: BRBPR, copious. HPI Narrative The patient is a 74 y/o M w/ PMHx: COPD, Bladder Cancer s/p transurethral resection on chemotherapy and [facility], Vavular heart disease status post AVR, CAD status post CABG x 1, CKD stage III unclear subtype per GFR trending, HTN, HLD, Tobacco use, AAA s/p rupture s/p repair who presents to the [facility] ED on 11/07/2024 with significant bright red blood per rectum with his last chemotherapy noted 10/19/2024 in addition to ongoing radiation with last noted 10/22/2024 with significant bright red blood ongoing eventually becoming darker with severe significant ongoing bowel movements foul-smelling in nature with no associated abdominal pain nor any nausea or emesis prompting ED evaluation. Patient did note when he started to have copious bleeding in the ED he did have some mild abdominal cramping. He denies associated lightheadedness/dizziness/dyspnea/chest pain. He notes chronic dysuria and frequency. Workup in the ED included T96.1 Temporal, heart rate 79, BP 83/63, respiratory rate 18, 97% on room air with BP at 1900 decreasing down to 77/60 and then 78/55 with a MAP of 62 improving following PRBC with most recent [id number], heart rate 78, BP 03/02/1972, respiratory rate 16, 98% oxygenation, CBC with WC 10.8, hemoglobin initially 9.1 at 1555 with repeat at 1757 noted to be hemoglobin 7.8, platelet 229 with left shift, unremarkable coags, CMP with potassium 5.3 not noted to be hemolyzed, BUN/creatinine 47/2.09, GFR 33, [id number], lactic acid 2.2, hepatic profile not marked appearing, troponin 16, urine noted to be cloudy, urine protein 100, occult blood 50, negative nitrite, leukocyte esterase 500, urine RBCs 5-10, urine WBCs greater than 100 with 2+ urine bacteria, CTA abdomen and pelvis with and without contrast with no active hemorrhaging although patient with significant active bleed in the ED which had been profuse prompting emergent transition to endoscopy for colonoscopy with , also noted mild wall thickening and inflammatory changes involving the proximal duodenum, distal rectosigmoid colon suggestive of enterocolitis, markedwall thickening of the bladder with surrounding inflammatory fat stranding, similar mild left hydroureteronephrosis with evidence of a left urethritis/pyelitis, stable appearing irregular diffuse fusiform aneurysmal dilatation of the infrarenal abdominal aorta and bilateral common iliac arterieswith eccentric noncalcified plaque/mural thrombus, chest x-ray with no acute cardiopulmonary findings however extensive pulmonary emphysema evident. In the ED patient administered 1 unit PRBC stat given hemorrhagic shock. Patient was evaluated in the endoscopy suite at [facility] on 11/07/2024 and at the time of evaluation, transfer to a tertiary hospital was felt to be in the patient's best interest due to significant lower GI bleed, hemorrhagic shock, high concern for friability of bowel given ongoing and very recent radiation with high risk for rebleeding. Patient had transitioned from the ED to the endoscopy lab for emergent endoscopy given his hemorrhagic shock thus transfer attempts were not initiated initially in the ED. Discussed case with Dr. Floyd who agreed that transfer even following endoscopy would be inpatient best interest in order to have IR capabilities if necessary and higherlevel of care with onsite farm operations manager team should patient decompensate again. Given the need for ongoing medical care, in the interim in the best interest of the patient, will proceed with admission to [facility] ICU following endoscopy and care will be provided here until tertiary facility has an available staffed bed. Pt and/or family are aware of the transfer, the reasoning behind the need for transfer, and that until a staffed bed becomes available, we will provide evidence-based care to the best of our abilities, with the limitations of care here being fully addressed. Discussed this plan ofcare with the patient and the family and did contact per discussion with Dr. Floyd [facility] as initial and they at this time are requesting that they be recontacted once the endoscopy is complete to know better where to place the patient. 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 Intention tremor Carotid stenosis, bilateral Hyperlipidemia Nonrheumatic aortic (valve) stenosis Essential hypertension Tobacco dependence Bilateral inguinal hernia Left carotid bruit Abdominal aortic aneurysm (AAA) Anemia Subcutaneous mass of back PUD (peptic ulcer disease) Cough Arthritis Home Medications ?Medication ?Instructions ?Recorded ?Last Taken ?Type aspirin 81 mg tablet,delayed 81 mg PO DAILY heart heal th 03/02/22 01/12/24 History release rosuvastatin 5 mg tablet (Crestor) 5 mg PO DAILY uzma sterol 03/02/22 03/02/22 History amlodipine 5 mg tablet 5 mg PO DAILY #30 tabs 02/28 Unknown Rx cholecalciferol (vitamin D3) 25 25 mcg PO DAILY Unknown History mcg (1,000 unit) capsule metoprolol tartrate 25 mg tablet 12.5 mg (1/2 x 25 mg) PO BID #90 03/22/24 06/27/24 05:30 Rx tabs acetaminophen 500 mg capsule 1,000 mg PO Q6H PRN pain 06/13/24 Unknown History fluticasone fur. 200 mcg-umeclid 1 inh inhalation RUFINA Y PRN SOB 06/13/24 Unknown History 62.5 mcg-vilant 25 mcg inhalat.powder (Trelegy Ellipta) Allergy/AdvReac Type Severity Reaction Status Date / Time No Known Allergies Allergy Verified 11/07/24 15:31 Family History Sister Asthma Mother Arthritis Diabetes Brother Cancer Unsure what kind- just a lump on his neck Surgical History Neoplasm of bladder Hx of inguinal hernia repair S/P inguinal hernia repair History of cardiac catheterization S/P AAA repair 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) History of left heart catheterization (11/27/18) History of aortic valve replacement (02/12/19) Social History (Updated 11/07/24 @ 20:[address] Suzanne Medley MD) household members: none Smoking Status: Current every day smoker tobacco type: cigarettes Smoking packsper day: 0.25 Smoking cigarettes per day: 5.0 quit status: has quit before alcohol intake: never substance use type: does not use caffeine: Yes Type: coffee Number of servings: 3 what type of physical activity do you participate in: other frequency: 3-4 times per week seatbelt use: always ROS ROS Narrative Admission Review of Systems: CONSTITUTIONAL: No weight loss, fever, chills, + weakness or fatigue. HEENT: Eyes: No visual loss, blurred vision, double vision or yellow sclerae. Ears, Nose, Throat: No hearing loss, sneezing, congestion, runny nose or sore throat. SKIN: No rash or itching, lesions, wounds except + occasional stage ecchymoses, abrasion. CARDIOVASCULAR: No chest pain, chest pressure or chest discomfort, palpitations,edema, orthopnea, syncopal events. RESPIRATORY: No shortness of breath, cough or sputum, wheezing, hemoptysis. GASTROINTESTINAL: + Bright red blood per rectum, copious continued loose stools,mild abdominal cramping. No anorexia, nausea, vomiting or diarrhea, no marked abdominal pain. GENITOURINARY: + Chronic dysuria, frequency. No urgency or retention. NEUROLOGICAL: No headache, dizziness, syncope, paralysis, ataxia, numbness or tingling in the extremities, focal weakness, change in bowel or bladder control,seizure. MUSCULOSKELETAL: + muscle, back pain, joint pain or stiffness. HEMATOLOGIC: + Acute anemia, easy bleeding/bruising. LYMPHATICS: No enlarged nodes. No history of splenectomy. PSYCHIATRIC: No history of depression or anxiety. ENDOCRINOLOGIC: No reports of sweating, cold or heat intolerance. No polyuria orpolydipsia. ALLERGIES: No history of asthma, hives, eczema or rhinitis. Vital Signs Vital Signs Vital Signs: 11/07/24 15:32 11/07/24 15:57 11/07/24 16:35 Temperature 96.1 F L Temperature Source Temporal Pulse Rate 79 79 Respiratory Rate 18 16 Blood Pressure 83/63 L 102/72 132/75 H Blood Pressure Mean 69 82 94 Blood Pressure Source Blood Pressure Position Blood Pressure Location Pulse Ox 97 92 Oxygen Delivery Method Room Air Room Air Oxygen Flow Rate (L/min) 11/07/24 17:00 11/07/24 18:00 11/07/24 18:35 Temperature Temperature Source Pulse Rate 76 110 H 79 Respiratory Rate 30 H 18 Blood Pressure 144/75 H 142/126 H Blood Pressure Mean 98 131 Blood Pressure Source Blood Pressure Position Blood Pressure Location Pulse Ox 99 Oxygen Delivery Method Nasal Cannula Oxygen Flow Rate (L/min) 11/07/24 18:45 11/07/24 18:48 11/07/24 18:54 Temperature 96.6 F L Temperature Source Temporal Pulse Rate 81 77 Respiratory Rate 16 Blood Pressure 128/114 H 77/60 L 78/55 L Blood Pressure Mean 118 65 62 Blood Pressure Source Blood Pressure Position Blood Pressure Location Pulse Ox 92 Oxygen Delivery Method Oxygen Flow Rate (L/min) 11/07/24 19:00 11/07/24 19:00 11/07/24 19:10 Temperature 97.3 F L 97.3 F L 97.3 F L Temperature Source Temporal Temporal Temporal Pulse Rate 76 72 75 Respiratory Rate 22 H 17 20 H Blood Pressure 95/63 112/73 113/71 Blood Pressure Mean 73 86 85 Blood Pressure Source Monitor Blood Pressure Position Blood Pressure Location Pulse Ox 98 97 Oxygen Delivery Method Nasal Cannula Nasal Cannula Oxygen Flow Rate (L/min) 2 11/07/24 19:19 11/07/24 19:37 11/07/24 19:45 Temperature 97.6 F L 97.6 F L Temperature Source Temporal Pulse Rate 74 78 74 Respiratory Rate 16 16 14 Blood Pressure 125/43 H 124/43 H 130/91 H Blood Pressure Mean 70 70 104 Blood Pressure Source Monitor Blood Pressure Position Semi-Fowlers Blood Pressure Location Right Arm Pulse Ox 98 98 100 Oxygen Delivery Method Nasal Cannula Oxygen Flow Rate (L/min) 2 11/07/24 20:10 Temperature 97.6 F L Temperature Source Pulse Rate 78 Respiratory Rate 16 Blood Pressure 124/43 H Blood Pressure Mean Blood Pressure Source Blood Pressure Position Blood Pressure Location Pulse Ox 98 Oxygen Delivery Method Nasal Cannula Oxygen Flow Rate (L/min) 2 Weight Weight: 141 lb 15.643 oz Body Mass Index (BMI) 22.8 Physical Exam Narrative Physical Examination: General: Awake, alert, oriented to self, place and recent events, remains cooperative, laying in the bed in the endoscopy suite, pale appearing, fatigued. Skin: Pale color, normal turgor, no icterus, no cyanosis, occasional stage ecchymoses, abrasion. HEENT: AT/NC, EOMI, PERRLA, moderately dry MM, no carotid bruits or JVD noted. Lungs: Severely diminished, greater bases, mildly increased respiratory rate butno distress, occasional soft end expiratory wheeze, no rales or rhonchi. Heart: Regular rate and rhythm; no gallop, rub audible, status post previous AVR. Abdomen: Soft, NTTP, ND, significant hyperactive BS, no markedly appreciated HSM. Extremities: No cyanosis, no clubbing, no significant distal edema noted. Neurological: Patient awake, alert, oriented as noted, cognitive function currently appears baseline intact; pupils equally reactive to light and accommodation, cranial nerves grossly normal, moving all 4 extremities, no focaldeficits, strength severely globally decreased secondary to acute presentation and underlying comorbidities. Psychiatric: Affect appears flat, fatigued, no acute evidence of depressive or anxiety feelings. Results Lab / Micro Data 11/07/24 20:15 11/07/24 15:55 Labs: Laboratory Results - last 24 hr 11/07/24 15:55: WBC 10.8, RBC 3.01 L, Hgb 9.1 L, Hct 29.2 L, MCV 97.0 H, MCH 30.2, MCHC 31.2 L, RDW Std Deviation 55.2 H, RDW Coeff of Manjit 15.6 H, Plt Count 229, MPV 8.9, Immature Gran % (Auto) 0.700, Neut % (Auto) 76.0 H, Lymph % (Auto)11.8 L, [place] % (Auto) 9.8, Eos % (Auto) 1.1, Baso % (Auto) 0.6, Absolute Neuts (auto) 8.2 H, Absolute Lymphs (auto) 1.27, Nucleated RBC % 0, Sodium 141, Potassium 5.3 H, Chloride 106, Carbon Dioxide 22.6, Anion Gap 12, BUN 47 H, Creatinine 2.09 H, Est GFR (MDRD) Non-Af 33 L, BUN/Creatinine Ratio 22.4 H, Glucose 139 H, Lactic Acid 2.2 H*, Calcium 8.3, Total Bilirubin 0.15, AST 14, ALT9, Alkaline Phosphatase 68, Total Protein 5.7 L, Albumin 3.3 L, Globulin 2.4, Albumin/Globulin Ratio 1.4, Lipase 43 11/07/24 17:26: Urine Color Straw, Urine Clarity Cloudy, Urine pH 6.0, Ur Specific [place] 1.015, Urine Protein 100 H, Urine Glucose (UA) Normal, Urine Ketones Negative, Urine Occult Blood 50 H, Urine Nitrite Negative, Urine Bilirubin Negative, Urine Urobilinogen Normal, Ur Leukocyte Esterase 500 H, Urine RBC 5-10 SEEN, Urine WBC >100 SEEN, Ur Squamous Epith Cells 0-5 SEEN, Ur Transition Epith Cell 0-5 SEEN, Urine Bacteria 2+, Urine Mucus 0 SEEN 11/07/24 17:57: Hgb 7.8 L, Troponin T High Sens 16 11/07/24 18:30: PT 14.5, INR 1.1, APTT 26.5 11/07/24 18:40: Blood Type A POSITIVE, Antibody Screen NEGATIVE, Crossmatch See Detail 11/07/24 18:40: Crossmatch See Detail Micro: Microbiology 11/07/24 15:45 Stool Stool Occult Blood (ASIF) - Final Occult Blood Positive Imaging Radiology Impression Abdomen/Pelvis CTA 11/07/24 15:42 IMPRESSION: 1. No CT evidence for active gastrointestinal hemorrhage. 2. Mild wall thickening and inflammatory changes involving the proximal duodenum, and distal rectosigmoid colon suggestive of enterocolitis. Nonspecific diarrheal illness with fluid in the colon. 3. Marked wall thickening of the bladder with surrounding inflammatory fat stranding, may be infectious/inflammatory or related to known neoplasm. Possibly treatment related change. 4. Similar mild left hydroureteronephrosis. Evidence of left ureteritis/pyelitis. 5. Stable appearance of irregular diffuse fusiform aneurysmal dilatation of the infrarenal abdominal aorta and bilateral common iliac arteries, with eccentric noncalcified plaque/mural thrombus. Reading Location: [facility] Chest X-Ray 11/07/24 18:53 IMPRESSION: No focal consolidation. Extensive pulmonary emphysema. Reading Location: [facility] Assessment & Plan Assessment/Plan (1) GI bleed: (2) Hemorrhagic shock: PLAN: Plan The patient is a 74 y/o M w/ PMHx: COPD, Bladder Cancer s/p transurethral resection on chemotherapy and [facility], Vavular heart disease status post AVR, CAD status post CABG x 1, CKD stage III unclear subtype per GFR trending, HTN, HLD, Tobacco use, AAA s/p rupture s/p repair who presents to the [facility] ED on 11/07/2024 with significant bright red blood per rectum with his last chemotherapy noted 10/19/2024 in addition to ongoing radiation with last noted 10/22/2024 with significant bright red blood ongoing eventually becoming darker with severe significant ongoing bowel movements foul-smelling in nature with no associated abdominal pain nor any nausea or emesis prompting ED evaluation. #1. Acute Hermorrhagic Shock secondary to Acute Lower GI Bleed w/ resultant Acute Blood Loss Anemia with associated lactic acidosis suspected primary secondary to associated hypovolemia/demand: Patient emergently transitioned to endoscopy given severity of bleeding despite CTA with no acute bleed evidence, continue to have copious blood per rectum with MAP less than 65, given significant history concern for friability of bowel also, in addition to fact this is a lower component may require IR potential thus discussed with gastroenterology and will plan to initiate transfer however in the interim whileawaiting a tertiary facility bed, will admit to the ICU, maintain on telemetry monitoring, continue to cycle H&H, continue PRBC administration initiate per ED,hold all antiplatelet therapy, initiate protonix with ongoing NPO status, continue GI consultation, request farm operations manager involvement while awaiting for tertiary facility transfer. #2. Acute Complicated Urinary Tract Infection with unchanged mild left hydroureteronephrosis with evidence of a left urethritis/pyelitis: UA upon ED evaluation remarkable, pending UCx, continue IVFs, monitor I/Os, continue IV Rocephin given no previous cultures notable w/ transition as able pending sensitivities and speciation. #3. Lactic acidosis: Likely secondary to shock as noted, mildly elevated 2.2, continue treatment as noted) per facility protocol if remains at [facility] as transfer is pending. #4. Hyperkalemia, mild: Admission potassium 5.3, not markedly elevated, will continue hydration, repeat CMP in AM if remains at [facility] astransfer is pending. #5. Bladder cancer: Patient with transurethral bladder resection 06/27/[address] Winston, following with [facility] oncology on chemotherapy and radiation with last chemotherapy 10/19/2024 and last radiation 10/22/2024, magnesium and phosphorus levels requested, complicates presentation as noted #2,encourage continued follow-up outpatient with oncology and urology as previouslyarranged. #6. Chronic stable appearing in for abdominal aortic aneurysm, fusiform as wellas bilateral common iliac arteries: Patient with noted 12/28/2021 CT abdomen imaging demonstrating at that time 5 cm infrarenal abdominal aortic aneurysm with adjacent retroperitoneal fluid suggesting of aneurysm leak transferred to [facility] undergoing thoracoretroperitoneal for ruptured juxtarenal abdominal aortic aneurysm repair. Noted on CTA, stable appearing, encourage continued follow-up with vascular surgery as previously arranged. #7. Valvular heart disease: Patient with history of aortic stenosis diagnosed in 2012, status post AVR while also having CABG, most recent ECHO 04/29/2023 demonstrated preserved ejection fraction, no regional wall motion abnormalities,aortic valve with peak gradient 25 mmHg and mean valve gradient 13 mmHg. #8. CAD: Status post CABG x 1 with SVG to RCA 02/12/2019 at [facility], additionally at the same time had AVR, temporally holding antiplatelet therapy, hold metoprolol, continue statin therapy. #9. Chronic Kidney Disease Stage III, unclear subtype or GFR trending: Admission BUN/Cr 47/2.09, GFR 33, baseline renal function primarily 1.4-2.6 but is vacillated, most recently 07/09/2024 creatinine 1.74, repeat BMP in AM. #10. Hypertension: Given presentation with shock as noted, holding all hypertensive regimen, add back once clinically appropriate. #11. Hyperlipidemia: Will continue patient statin therapy. #12. Tobacco Abuse: Encouraged cessation, inpatient consultation per RT, NR if desired. #13. Chronic COPD: Will temporally hold home inhalers and in the interim we will transition to ATC duonebs, PRN albuterol, HOB, IS parameters. Encourage tobacco cessation. #14. DVT prophylaxis: SCDs. #15. CODE status: Patient HCPOA notes his daughter and son are his HCPOA and living will is currently in place. Discussed CODE status at length including difference between FULL code, DNR-CCA and DNR-CC status. Following discussions about the differences in these status, requested DNR-CCA, no intubation. Clarified also if he should still have a heart beat but had respiratory distressand he noted he would not want to be intubation. He does not want any aggressiveinterventions or procedures. Advanced Care Planning Face to Face Time: 16 minutes. Charges/Coding Visit Charges Inpatient E&M: 82345 Init Hosp L3 Procedures Hospitalists Procedures: 80513 Advncd Care Plan 30 Min 11/07/242052 <Electronically signed by Suzanne Medley MD> Cosigner Signature (if applicable): CC: Dr. Suzanne Medley MD; Dr. Padmini Carrasco MD~ Signed ADDENDUM by Dr. Suzanne Medley MD on 11/07/24 at 2147 Addendum Upper and lower scopes performed. Blood in the entire examined colon and also blood in the distal ileum and in the terminal ileum, normal esophagus, red bloodin the entire stomach, spurting duodenal ulcer with a visible vessel with injection/heater probe, widely patent previous surgical anastomosis, characterized by ulceration was found in the duodenum. Contacting [facility] now to initiate transfer. 11/07/242146<Electronically signed by Suzanne Medley MD> Cosigner Signature (if applicable): cc: Dr. Suzanne Medley MD; Dr. Padmini Carrasco MD ~* Signed [facility] Work Phone: 1(276) 264-467410-01-2025 Consult note [facility] Medical Records Department [address] [place] [address] Anesthesia Postop Eval II 11/07/242202 MR#: [id number] Acct: [id number] Name: ABELARDO IVORY Rep #:[id number] : 1950 74 From: Raymond Spann PCP: Dr. Padmini Carrasco MD Status :[facility] Race: C Location: ICU ICU03 - Anesthesia Postop Eval I Sum Postop Eval Completion status Anesthesia document: Postop Eval 1 completed: Yes Anesthesia Postop Eval I Summary Anesthesia Postop Eval I Summary: Anesthesia Postop Eval I: Assessment Summary Airway patent Yes 11/07/24 22:02 Spontaneous unlabored Yes 11/07/24 22:02 respirations Mental status Awake,Calm 11/07/24 22:02 nausea No 11/07/24 22:02 Vomiting No 11/07/24 22:02 Anesthesia Postop Eval I: Fluid Summary Crystalloid volume administer 400 11/07/24 22:02 (ml) Colloids volume administered ( ml) Blood Product volume administered (ml) Total IV fluid infused 400 11/07/24 22:02 Anesthesia Postop Eval I: Summary Notes Anesthesia Complication No 11/07/24 22:02 Anesthesia Complication Comment: Post-operative progress note Patient was 11/07/24 22:02 transported to the ICU. Report given to ICU staff. Patient was HDS on arrival and following commands as well as conversing Anesthesia: Postop Eval II Evaluation Mental status: Awake and Calm Pain Level: 1 nausea: No Vomiting: No Progress Note Post-operative progress note: Patient evaluated in the ICU. HDS. No anesthetic complications Complications Anesthesia Complication: No 11/07/24 2203 > Date _ Raymond Anthony MD Cosign Signature: Date CC: ~ Signed [facility]10-01-2025 Discharge summary [facility] Medical Records Department [address] [place] [address] Emergency Department Summary 11/07/24 MR#: [id number] Acct: [id number] Name: ABELARDO IVORY Rep #:[id number] : 1950 74 From: Con fregoso DO PCP: Dr. Padmini Carrasco MD Status :[facility] Location: ICU ICU03-1 HPI History of Present Illness Chief Complaint: GI Bleed Narrative Narrative: Chief complaint and HPI: 74-year-old gentleman with past medical history of bladder cancer status post transurethral section of the large bladder mass on 06/27/[address] Winston with 5 weeks of radiation and 2 cycles of chemotherapypresents for evaluation of bright red blood per rectum. Patient st ates he finished his last chemotherapy on 10/19/2024 and his last radiation on 10/22/2024. States today he had bright red blood per rectum that has become darker after multiple bowel movements. He denies any fever, chills, shortness of breath, chest pain, abdominal pain, nausea, vomiting, dysuria. Review of systems: See HPI Medications: As listed on the chart Allergies: As listed on the chart PFSH: Per chart Vital signs: As listed on the chart. Reviewed. Physical exam: Gen: A&O x3, NAD Head: Normocephalic, atraumatic Eyes: No sclera icterus, conjunctiva clear ENT: Moist mucous membranes Neck: Trachea midline CV: RRR, no murmurs, no peripheral edema Resp: Lungs CTA BL, no w/r/c GI: Abd soft, non-distended, non-tender, no r/r/g Rectal: Normal external examination. No evidence of hemorrhoids or fissures. Normal tone and sensation. No masses, fluctuance, or tenderness. No pain out of proportion. Dark brown stool on gloved finger Musc: Full ROM, no deformity Skin: Warm, dry, pale Neuro: Alert, oriented, grossly intact, sensation intact Psych: Cooperative, appropriate mood and affect PFSH 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 Intention tremor Carotid stenosis, bilateral Hyperlipidemia Nonrheumatic aortic (valve) stenosis Essential hypertension Tobacco dependence Bilateral inguinal hernia Left carotid bruit Abdominal aortic aneurysm (AAA) Anemia Subcutaneous mass of back PUD (peptic ulcer disease) Cough Arthritis Home Medications ?Medication ?Instructions ?Recorded ?Last Taken ?Type aspirin 81 mg tablet,delayed 81 mg PO DAILY heart heal th 03/02/22 01/12/24 History release rosuvastatin 5 mg tablet (Crestor) 5 mg PO DAILY uzma sterol 03/02/22 03/02/22 History amlodipine 5 mg tablet 5 mg PO DAILY #30 tabs 02/28 Unknown Rx cholecalciferol (vitamin D3) 25 25 mcg PO DAILY Unknown History mcg (1,000 unit) capsule metoprolol tartrate 25 mg tablet 12.5 mg (1/2 x 25 mg) PO BID #90 03/22/24 06/27/24 05:30 Rx tabs acetaminophen 500 mg capsule 1,000 mg PO Q6H PRN pain 06/13/24 Unknown History fluticasone fur. 200 mcg-umeclid 1 inh inhalation RUFINA Y PRN SOB 06/13/24 Unknown History 62.5 mcg-vilant 25 mcg inhalat.powder (Trelegy Ellipta) Allergy/AdvReac Type Severity Reaction Status Date / Time No Known Allergies Allergy Verified 11/07/24 15:31 Family History Sister Asthma Mother Arthritis Diabetes Brother Cancer Unsure what kind- just a lump on his neck Surgical History Neoplasm of bladder Hx of inguinal hernia repair S/P inguinal hernia repair History of cardiac catheterization S/P AAA repair 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) History of left heart catheterization (11/27/18) History of aortic valve replacement (02/12/19) Social History (Updated 11/07/24 @ 20:[address] Suzanne Medley MD) household members: none Smoking Status: Current every day smoker tobacco type: cigarettes quit status: has quit before alcohol intake: never substance use type: does not use caffeine: Yes Type: coffee Number of servings: 3 what type of physical activity do you participate in: other frequency: 3-4 times per week seatbelt use: always EXAM Physical Exam Const Vital Signs: 11/07/24 15:32 11/07/24 15:57 11/07/24 16:35 Temperature 96.1 F L Temperature Source Temporal Pulse Rate 79 79 Respiratory Rate 18 16 Respiratory Effort Respiratory Depth Respiratory Pattern Blood Pressure 83/63 L 102/72 132/75 H Blood Pressure Mean 69 82 94 Blood Pressure Source Blood Pressure Position Blood Pressure Location Pulse Ox 97 92 Oxygen Delivery Method Room Air Room Air Oxygen Flow Rate (L/min) 11/07/24 17:00 11/07/24 18:00 11/07/24 18:35 Temperature Temperature Source Pulse Rate 76 110 H 79 Respiratory Rate 30 H 18 Respiratory Effort Respiratory Depth Respiratory Pattern Blood Pressure 144/75 H 142/126 H Blood Pressure Mean 98 131 Blood Pressure Source Blood Pressure Position Blood Pressure Location Pulse Ox 99 Oxygen Delivery Method Nasal Cannula Oxygen Flow Rate (L/min) 11/07/24 18:45 11/07/24 18:48 11/07/24 18:54 Temperature 96.6 F L Temperature Source Temporal Pulse Rate 81 77 Respiratory Rate 16 Respiratory Effort Respiratory Depth Respiratory Pattern Blood Pressure 128/114 H 77/60 L 78/55 L Blood Pressure Mean 118 65 62 Blood Pressure Source Blood Pressure Position Blood Pressure Location Pulse Ox 92 Oxygen Delivery Method Oxygen Flow Rate (L/min) 11/07/24 19:00 11/07/24 19:00 11/07/24 19:10 Temperature 97.3 F L 97.3 F L 97.3 F L Temperature Source Temporal Temporal Temporal Pulse Rate 76 72 75 Respiratory Rate 22 H 17 20 H Respiratory Effort Respiratory Depth Respiratory Pattern Blood Pressure 95/63 112/73 113/71 Blood Pressure Mean 73 86 85 Blood Pressure Source Monitor Blood Pressure Position Blood Pressure Location Pulse Ox 98 97 Oxygen Delivery Method Nasal Cannula Nasal Cannula Oxygen Flow Rate (L/min) 2 11/07/24 19:19 11/07/24 19:37 11/07/24 19:45 Temperature 97.6 F L 97.6 F L Temperature Source Temporal Pulse Rate 74 78 74 Respiratory Rate 16 16 14 Respiratory Effort Respiratory Depth Respiratory Pattern Blood Pressure 125/43 H 124/43 H 130/91 H Blood Pressure Mean 70 70 104 Blood Pressure Source Monitor Blood Pressure Position Semi-Fowlers Blood Pressure Location Right Arm Pulse Ox 98 98 100 Oxygen Delivery Method Nasal Cannula Oxygen Flow Rate (L/min) 2 11/07/24 20:10 11/07/24 20:28 11/07/24 21:51 Temperature 97.6 F L 98.0 F Temperature Source Temporal Pulse Rate 78 84 72 Respiratory Rate 16 18 20 H Respiratory Effort Respiratory Depth Respiratory Pattern Normal Blood Pressure 124/43 H 122/79 H 129/83 H Blood Pressure Mean 93 98 Blood Pressure Source Monitor Monitor Blood Pressure Position Semi-Fowlers Semi-Fowlers Blood Pressure Location Right Arm Right Arm Pulse Ox 98 100 100 Oxygen Delivery Method Nasal Cannula Nasal Cannula Simple Mask Oxygen Flow Rate (L/min) 2 2 3 11/07/24 21:56 11/07/24 22:01 11/07/24 22:02 Temperature 96.4 F L 36 F L Temperature Source Temporal Pulse Rate 75 75 72 Respiratory Rate 14 19 H 15 Respiratory Effort Respiratory Depth Respiratory Pattern Blood Pressure 139/89 H 134/120 H 129/80 H Blood Pressure Mean 105 124 Blood Pressure Source Monitor Monitor Blood Pressure Position Semi-Fowlers Semi-Fowlers Blood Pressure Location Right Arm Right Arm Pulse Ox 100 100 100 Oxygen Delivery Method Nasal Cannula Room Air Venturi Mask Oxygen Flow Rate (L/min) 2 8 11/07/24 22:05 11/07/24 22:08 11/07/24 22:10 Temperature Temperature Source Pulse Rate 75 77 Respiratory Rate 19 H Respiratory Effort Normal Non-Labored Respiratory Depth Normal Respiratory Pattern Normal Blood Pressure 145/119 H Blood Pressure Mean 127 Blood Pressure Source Monitor Blood Pressure Position Semi-Fowlers Blood Pressure Location Right Arm Pulse Ox 97 Oxygen Delivery Method Room Air Room Air Oxygen Flow Rate (L/min) 11/07/24 22:15 11/07/24 22:30 11/07/24 22:45 Temperature Temperature Source Pulse Rate 77 78 82 Respiratory Rate 21 H 18 18 Respiratory Effort Respiratory Depth Respiratory Pattern Blood Pressure 155/112 H 119/65 138/111 H Blood Pressure Mean 126 83 120 Blood Pressure Source Monitor Monitor Monitor Blood Pressure Position Semi-Fowlers Semi-Fowlers Semi-Fowlers Blood Pressure Location Right Arm Right Arm Right Arm Pulse Ox 97 95 94 Oxygen Delivery Method Room Air Room Air Room Air Oxygen Flow Rate (L/min) MDM MDM MDM Narrative Medical decision making narrative: 74-year-old gentleman with past medical history of bladder cancer status post transurethral sectionof the large bladder mass on 06/27/[address] Winston with 5 weeks of radiation and 2 cycles of chemotherapy presents for evaluation of bright red blood per rectum. Patient states he finished his last chemotherapy on 10/19/2024 and his last radiation on 10/22/2024. States today he had bright red blood per rectum that has become darker after multiple bowel movements. History is taken by patient as well as post operative report by Dr. Winston. On chart review, patient also has a history of a AAA repair. Differential diagnosis includes but is not limited to lower GI bleed from radiation proctocolitis, aortic enteric fistula, colitis, diverticulosis, anemia. On presentation, patient is pale and hypotensive. NS bolus ordered. Blood pressure quickly improved. GI bleed workup ordered including CTAabdomen and pelvis. CBC without leukocytosis. Patient has anemia with hemoglobin of 9.1. Platelets normal. CMP shows mild hypokalemia of 5.1 with CKD. BUN 47 creatinine 2.09. Appears patient's baseline. No transaminitis. Lipase unremarkable. Lactic acid 2.2. Patient receiving fluids. While waiting for CTA abdomen and pelvis results. Patient has had multiple bloody bowel movements. He is becoming tachycardic, tachypneic, hypotensive. 1 unit trauma blood ordered with type and screen, coagulation panel, repeat H&H, troponin, chest x-ray, EKG. EKG and chest x-ray reviewed. Troponin unremarkable. Coagulation panel unremarkable. Repeat hemoglobin 7.8. Patient remains hypotensive. Another unittrauma blood ordered. CTA abdomen pelvis still pending at this time. I have called multiple times to radiology for a read. I do not see an obvious blush on imaging. Given that patient is decompensating, Dr. Floyd was consulted for GI bleed and likely need of endoscopy. Patient was discussed withDr. Floyd. He would like CTA results prior to endoscopy to locate bleed. Blood pressure improving. UApositive for UTI. Urine culture sent. Rocephin ordered. While waiting for CTA results, it was reported to me by nursing staff that patient was taken out of the emergency department by surgery staff for endoscopy. CTA resulted shortly later with no evidence of active gastrointestinal hemorrhage. Mild wall thickening and inflammatory changes involving the proximal duodenum, and distal rectosigmoid c olon suggestive of enterocolitis. Marked wall thickening of the bladder with surrounding inflammatory fat stranding. Left hydroureteronephrosis. Evidence of left uritis/pyelitis. Stable appearance ofirregular diffuse fusiform aneurysm dilation of the infrarenal renal abdominal aorta and bilateral common iliac arteries, with eccentric noncalcified plaque/mild thrombus. After receiving theCTA results, I did consult Dr. Floyd. He was updated. He spoke with the hospitalist service who would prefer patient be transferred after endoscopy. Hospitalist was contacted and patient was discussed. Prefers patient to be transferred however given that they are now out of the emergency department and unable to initiate this transfer. They will admit to the ICU and arrange transfer. EKG: Interpreted by me/EM physician: EKG shows normal sinus rhythm without any acute ischemic changes heart rate 87 Diagnostic: Interpreted by me/EM physician: Chest x-ray without pneumonia, effusion, cardiomegaly, pneumothorax 45 minutes of critical care time utilized in managing the patient. This is due to high probability of and deterioration of the patient based on the patient's condition and excludes any separately billable procedures. Impression: 1. GI bleed 2. Acute on chronic anemia requiring blood transfusion secondary to #1 3. Hypotension secondary to #1 4. UTI 5. Lactic acidosis secondary to #1 6. Mild hyperkalemia Lab Data Labs: Laboratory Results - last 24 hr 11/07/24 11/07/24 11/07/24 15:55 17:26 17:57 WBC 10.8 RBC 3.01 L Hgb 9.1 L 7.8 L Hct 29.2 L MCV 97.0 H MCH 30.2 MCHC 31.2 L RDW Std Deviation 55.2 H RDW Coeff of Manjit 15.6 H Plt Count 229 MPV 8.9 Immature Gran % (Auto) 0.700 Neut % (Auto) 76.0 H Lymph % (Auto) 11.8 L [place] % (Auto) 9.8 Eos % (Auto) 1.1 Baso % (Auto) 0.6 Absolute Neuts (auto) 8.2 H Absolute Lymphs (auto) 1.27 Nucleated RBC % 0 PT INR APTT Sodium 141 Potassium 5.3 H Chloride 106 Carbon Dioxide 22.6 Anion Gap 12 BUN 47 H Creatinine 2.09 H Est GFR (MDRD) Non-Af 33 L BUN/Creatinine Ratio 22.4 H Glucose 139 H Lactic Acid 2.2 H* Calcium 8.3 Phosphorus 4.5 Magnesium 2.1 Total Bilirubin 0.15 AST 14 ALT 9 Alkaline Phosphatase 68 Troponin T High Sens 16 Total Protein 5.7 L Albumin 3.3 L Globulin 2.4 Albumin/Globulin Ratio 1.4 Lipase 43 Urine Color Straw Urine Clarity Cloudy Urine pH 6.0 Ur Specific [place] 1.015 Urine Protein 100 H Urine Glucose (UA) Normal Urine Ketones Negative Urine Occult Blood 50 H Urine Nitrite Negative Urine Bilirubin Negative Urine Urobilinogen Normal Ur Leukocyte Esterase 500 H Urine RBC 5-10 SEEN Urine WBC >100 SEEN Ur Squamous Epith Cells 0-5 SEEN Ur Transition Epith Cell 0-5 SEEN Urine Bacteria 2+ Urine Mucus 0 SEEN Blood Type Antibody Screen Crossmatch 11/07/24 11/07/24 11/07/24 18:30 18:40 18:40 WBC RBC Hgb Hct MCV MCH MCHC RDW Std Deviation RDW Coeff of Manjit Plt Count MPV Immature Gran % (Auto) Neut % (Auto) Lymph % (Auto) [place] % (Auto) Eos % (Auto) Baso % (Auto) Absolute Neuts (auto) Absolute Lymphs (auto) Nucleated RBC % PT 14.5 INR 1.1 APTT 26.5 Sodium Potassium Chloride Carbon Dioxide Anion Gap BUN Creatinine Est GFR (MDRD) Non-Af BUN/Creatinine Ratio Glucose Lactic Acid Calcium Phosphorus Magnesium Total Bilirubin AST ALT Alkaline Phosphatase Troponin T High Sens Total Protein Albumin Globulin Albumin/Globulin Ratio Lipase Urine Color Urine Clarity Urine pH Ur Specific [place] Urine Protein Urine Glucose (UA) Urine Ketones Urine Occult Blood Urine Nitrite Urine Bilirubin Urine Urobilinogen Ur Leukocyte Esterase Urine RBC Urine WBC Ur Squamous Epith Cells Ur Transition Epith Cell Urine Bacteria Urine Mucus Blood Type A POSITIVE Antibody Screen NEGATIVE Crossmatch See Detail See Detail 11/07/24 11/07/24 11/07/24 18:40 20:15 22:16 WBC 8.5 RBC 3.51 L Hgb 10.6 L 10.4 L Hct 33.7 L 32.8 L MCV 96.0 H MCH 30.2 MCHC 31.5 L RDW Std Deviation 53.2 H RDW Coeff of Manjit 15.3 H Plt Count 156 MPV 8.9 Immature Gran % (Auto) 0.900 Neut % (Auto) 80.9 H Lymph % (Auto) 9.2 L [place] % (Auto) 8.1 Eos % (Auto) 0.4 Baso % (Auto) 0.5 Absolute Neuts (auto) 6.9 Absolute Lymphs (auto) 0.78 L Nucleated RBC % 0 PT INR APTT Sodium Potassium Chloride Carbon Dioxide Anion Gap BUN Creatinine Est GFR (MDRD) Non-Af BUN/Creatinine Ratio Glucose Lactic Acid Calcium Phosphorus Magnesium Total Bilirubin AST ALT Alkaline Phosphatase Troponin T High Sens Total Protein Albumin Globulin Albumin/Globulin Ratio Lipase Urine Color Urine Clarity Urine pH Ur Specific [place] Urine Protein Urine Glucose (UA) Urine Ketones Urine Occult Blood Urine Nitrite Urine Bilirubin Urine Urobilinogen Ur Leukocyte Esterase Urine RBC Urine WBC Ur Squamous Epith Cells Ur Transition Epith Cell Urine Bacteria Urine Mucus Blood Type Antibody Screen Crossmatch See Detail Radiography Diagnostic Testing: Clinical Impression(s) from Imaging Studies Abdomen/Pelvis CTA 11/07/24 15:42 IMPRESSION: 1. No CT evidence for active gastrointestinal hemorrhage. 2. Mild wall thickening and inflammatory changes involving the proximal duodenum, and distal rectosigmoid colon suggestive of enterocolitis. Nonspecific diarrheal illness with fluid in the colon. 3. Marked wall thickening of the bladder with surrounding inflammatory fat stranding, may be infectious/inflammatory or related to known neoplasm. Possibly treatment related change. 4. Similar mild left hydroureteronephrosis. Evidence of left ureteritis/pyelitis. 5. Stable appearance of irregular diffuse fusiform aneurysmal dilatation of the infrarenal abdominal aorta and bilateral common iliac arteries, with eccentric noncalcified plaque/mural thrombus. Reading Location: [facility] Chest X-Ray 11/07/24 18:53 IMPRESSION: No focal consolidation. Extensive pulmonary emphysema. Reading Location: [facility] Discharge Plan Disposition Disposition: Acute Care Hospital [facility] Discharge Date/Time: 11/07/24 20:14 What to do if you have Problems For any increased pain, shortness of breath, bleeding, nausea or vomiting, chestpain, or any unexpected problems, contact your Primary Care Provider. Call [facility] ([phone]) or report tothe closest Emergency Room. Call 911 if necessary. 11/07/24 5149 Cosigner Signature (if applicable): CC: Dr. Padmini Carrasco MD ~ Signed [facility]10-01-2025 Discharge summary [facility] Medical Records Department [address] [place] [address] Discharge Summary 11/07/24 2308 MR#: [id number] Acct: [id number] Name: ABELARDO IVORY Rep #:[id number] : 1950 74 From: Suzanne Medley MD PCP: Dr. Padmini Carrasco MD Status :[facility] Location: ICU ICU03-1 Providers Date of Admission: 11/07/24 Date of Discharge: 11/07/24 Primary Care Physician: Dr. Padmini Carrasco MD Consultations 11/07/24 21:49 Consult: Gastroenterology Routine Consulting Provider: [facility] Reason for Consult: ABLA, GI bleed, hemorrhagic shock. EMERGENT Consult: Yes Notified: Yes Date Notified: 11/07/24 Time Notified: 20:17 Method of Notification: ED Physician Initiated Consult: Loan Administrator / Pulmonary Medicine Routine Consulting Provider: [facility]/Pulmonary Med Reason for Consult: Hemorrhagic shock, ABLA, GI bleed. EMERGENT Consult: No Notified: Yes Date Notified: 11/07/24 Time Notified: 20:17 Method of Notification: Text Reason For Visit: HEMORRHAGIC SHOCK, GI BLEED Diagnosis Discharge Diagnosis (1) GI bleed: Status: Acute Code(s): K92.2 - Gastrointestinal hemorrhage, unspecified (2) Hemorrhagic shock: Status: Acute Code(s): R57.8 - Other shock Plan: DISCHARGE DIAGNOSES: #1. Acute Hemorrhagic shock secondary to Acute GI Bleed (Unclear if lower component as entire bowelupper and lower with blood, upper with noted bleeding duodenal crater bleeding lesions s/p heater probe and injection with possible billroth 2 anatomical surgical presentation w/ resultant Acute Blood Loss Anemiawith associated lactic acidosis suspected primary secondary to associated hypovolemia/demand #2. Acute Complicated Urinary Tract Infection with unchanged mild left hydroureteronephrosis with evidence of a left urethritis/pyelitis, unclear organism on transition to tertiary facility #3. Lactic acidosis, Likely secondary to shock as noted #4. Hyperkalemia, mild #5. Bladder cancer s/p TUBR on chemotherapy (10/19/24 last) and radiation (10/22/24 last) following with Dr. Dawkins and Dr. Winston #6. Chronic stable appearing in for abdominal aortic aneurysm, fusiform as wellas bilateral common iliac arteries #7. Valvular heart disease status post AVR #8. CAD, Status post CABG x 1 with SVG to RCA 02/12/2019 CC #9. Chronic Kidney Disease Stage III, unclear subtype or GFR trending (baselinerenal function primarily 1.4-2.6) #10. Hypertension #11. Hyperlipidemia #12. Tobacco Abuse #13. Chronic COPD #14. CODE status: Patient HCPOA notes his daughter and son are his HCPOA and living will is currently in place. DNR-CCA, no intubation. Medications at Discharge Home Medications aspirin 81 mg tablet,delayed release 81 mg PO DAILY heart health 03/02/22 rosuvastatin 5 mg tablet (Crestor) 5 [...] 1 inh inhalation DAILY PRN SOB 06/13/24 Hospital Course Operations None Procedures Blood transfusion, Colonoscopy and EGD Summary of Care Provided Minutes Spent on Discharge: 50 Hospital Course: The patient is a 74 y/o M w/ PMHx: COPD, Bladder Cancer s/p transurethral [facility] Vavular heart disease status post AVR, CAD status post CABG x 1, CKD stage III unclear subtype per GFR trending, HTN, HLD, Tobacco use,AAA s/p rupture s/p repair who presented to the [facility] ED on 11/07/2024 with significant bright red blood per rectum with his last chemotherapy noted 10/19/2024 in addition to ongoing radiation with last noted 10/22/2024 with significant bright red blood ongoing eventually becomingdarker with severe significant ongoing bowel movements foul-smelling in nature with no associated abdominal pain nor any nausea or emesis prompting ED evaluation. Patient did note when he started to have copious bleeding in the ED he did have some mild abdominal cramping. He denies associated lighth eadedness/dizziness/dyspnea/chest pain. He notes chronic dysuria and frequency. Workup in the ED included T96.1 Temporal, heart rate 79, BP 83/63, respiratory rate 18, 97% on room air with BP at 1900decreasing down to 77/60 and then 78/55 with a MAP of 62 improving following PRBC with most recent [id number], heart rate 78, BP 03/02/1972, respiratory rate 16, 98% oxygenation, CBC with WC 10.8, hemoglobin initially 9.1 at 1555 with repeat at 1757 noted to be hemoglobin 7.8, platelet 229 with left shift, unremarkable coags, CMP with potassium 5.3 not noted to be hemolyzed, BUN/creatinine 47/2.09, GFR 33, [id number], lactic acid 2.2, hepatic profile not marked appearing, troponin 16, urine noted to be cloudy, urine protein 100, occult blood 50, negative nitrite, leukocyte esterase 500, urineRBCs 5-10, urine WBCs greater than 100 with 2+ urine bacteria, CTA abdomen and pelvis with and without contrast with no active hemorrhaging although patient with significant active bleed in the ED which had been profuse prompting emergent transition to endoscopy for colonoscopy with , also noted mild wall thickening and inflammatory changes involving the proximal duodenum, distal rectosigmoid colon suggestive of enterocolitis, markedwall thickening of the bladder with surrounding inflammatory fat stranding, similar mild left hydroureteronephrosis with evidence of a left urethritis/pyelitis, stable appearing irregular diffuse fusiform aneurysmal dilatation of the infrarenal abdominal aorta and bilateral common iliac arterieswith eccentric noncalcified plaque/mural thrombus, chest x-ray with no acute cardiopulmonary findings however extensive pulmonary emphysema evident. In the ED patient administered 1 unit PRBC stat given hemorrhagic shock. Patient was evaluated in the endoscopy suite at [facility] on 11/07/2024 and at the time of evaluation, transfer to a tertiary hospital was felt to be in thepatient's best interest due to significant lower GI bleed, hemorrhagic shock, high concern for friability of bowel given ongoing and very recent radiation with high risk for rebleeding. Patient had transitioned from the ED to the endoscopy lab for emergent endoscopy given his hemorrhagic shock thus transfer attempts were not initiated initially in the ED. Discussed case with Dr. Lama agreed that transfer even following endoscopy would be inpatient best interest in order to have IR capabilities if necessary and higher level of care with onsite farm operations manager team should patient decompensate again. Given the need for ongoing medical care, in the interim in the best interest of the patient, will proceed with admission to [facility] ICU following endoscopy and care will be provided here until tertiary facility has an available staffed bed. Patient underwent both upper and lower endoscopies with blood throughout upper and lower thus unclear if lower component as entire bowelupper and lower with blood, upper with noted bleeding duodenal crater bleeding lesions s/p heater probe and injection with possible Billroth II anatomical surgical presentation. Patient was transition from endoscopy to the intensive care unit in [facility] was recontacted and accepted patient to their ICU. The farm operations manager given situation with profuse bleeding during endoscopy noted ongoing although vital signs had stabilized felt patient'ssafest best interest for immediate air flight to be set up by [facility]. Once airflight was setup and arrive patient was transitioned from [facility] intensive unit care to the [facility] Flight team. Weight / BMI Weight Weight: 144 lb 2.917 oz Body Mass Index (BMI) 23.2 ABG / Lab / Microbiology Data 11/07/24 22:16 11/07/24 15:55 Laboratory: Laboratory Results - last 24 hr 11/07/24 15:55: WBC 10.8, RBC 3.01 L, Hgb 9.1 L, Hct 29.2 L, MCV 97.0 H, MCH 30.2, MCHC 31.2 L, RDWStd Deviation 55.2 H, RDW Coeff of Manjit 15.6 H, Plt Count 229, MPV 8.9, Immature Gran % (Auto) 0.700, Neut % (Auto) 76.0 H, Lymph % (Auto)11.8 L, [place] % (Auto) 9.8, Eos % (Auto) 1.1, Baso % (Auto) 0.6, Absolute Neuts (auto) 8.2 H, Absolute Lymphs (auto) 1.27, Nucleated RBC % 0, Sodium 141, Potassium5.3 H, Chloride 106, Carbon Dioxide 22.6, Anion Gap 12, BUN 47 H, Creatinine 2.09 H, Est GFR (MDRD)Non-Af 33 L, BUN/Creatinine Ratio 22.4 H, Glucose 139 H, Lactic Acid 2.2 H*, Calcium 8.3, Total Bilirubin 0.15, AST 14, ALT9, Alkaline Phosphatase 68, Total Protein 5.7 L, Albumin 3.3 L, Globulin 2.4, Albumin/Globulin Ratio 1.4, Lipase 43 11/07/24 17:26: Urine Color Straw, Urine Clarity Cloudy, Urine pH 6.0, Ur Specific [place] 1.015, Urine Protein 100 H, Urine Glucose (UA) Normal, Urine Ketones Negative, Urine Occult Blood 50 H, Urine Nitrite Negative, Urine Bilirubin Negative, Urine Urobilinogen Normal, Ur Leukocyte Esterase 500 H, Urine RBC 5-10 SEEN, Urine WBC >100 SEEN, Ur Squamous Epith Cells 0-5 SEEN, Ur Transition EpithCell 0-5 SEEN, Urine Bacteria 2+, Urine Mucus 0 SEEN 11/07/24 17:57: Hgb 7.8 L, Phosphorus 4.5, Magnesium 2.1, Troponin T High Sens 16 11/07/24 18:30: PT 14.5, INR 1.1, APTT 26.5 11/07/24 18:40: Blood Type A POSITIVE, Antibody Screen NEGATIVE, Crossmatch See Detail 11/07/24 18:40: Crossmatch See Detail 11/07/24 18:40: Crossmatch See Detail 11/07/24 20:15: WBC 8.5, RBC 3.51 L, Hgb 10.6 L, Hct 33.7 L, MCV 96.0 H, MCH 30.2, MCHC 31.5 L, RDWStd Deviation 53.2 H, RDW Coeff of Manjit 15.3 H, Plt Count 156, MPV 8.9, Immature Gran % (Auto) 0.900, Neut % (Auto) 80.9 H, Lymph % (Auto)9.2 L, [place] % (Auto) 8.1, Eos % (Auto) 0.4, Baso % (Auto) 0.5,Absolute Neuts (auto) 6.9, Absolute Lymphs (auto) 0.78 L, Nucleated RBC % 0 11/07/24 22:16: Hgb 10.4 L, Hct 32.8 L Microbiology: Microbiology 11/07/24 15:45 Stool Stool Occult Blood (ASIF) - Final Occult Blood Positive Radiography Diagnostic Testing: Radiology Impression Abdomen/Pelvis CTA 11/07/24 15:42 IMPRESSION: 1. No CT evidence for active gastrointestinal hemorrhage. 2. Mild wall thickening and inflammatory changes involving the proximal duodenum, and distal rectosigmoid colon suggestive of enterocolitis. Nonspecific diarrheal illness with fluid in the colon. 3. Marked wall thickening of the bladder with surrounding inflammatory fat stranding, may be infectious/inflammatory or related to known neoplasm. Possibly treatment related change. 4. Similar mild left hydroureteronephrosis. Evidence of left ureteritis/pyelitis. 5. Stable appearance of irregular diffuse fusiform aneurysmal dilatation of the infrarenal abdominal aorta and bilateral common iliac arteries, with eccentric noncalcified plaque/mural thrombus. Reading Location: [id number] Chest X-Ray 11/07/24 18:53 IMPRESSION: No focal consolidation. Extensive pulmonary emphysema. Reading Location: [id number] D/C Instructions DC O2, CPAP, BIPAP Needs Home O2 Discharge instructions: No Meaningful Use Info Meaningful Use Meaningful Use Diagnoses (Choose all that apply): None applicable Discharge Plan Admission Primary Reason for Your Visit: Acute GI bleed (ulcerated crater lesion duodenum), Hemorrhagic shock Attending Provider: Suzanne Medley Primary Care Provider: Padmini Carrasco Consulting Providers: Derrell Fonseca; Kamlesh Floyd; [place]; Oxana Camarillo; Minda Foreman; Kaleigh Armstrong; Ritchie Juarez; Noe Suarez; Bernardo Zuñiga; Jatinder Mobley; Howie Araujo; Say Abraham; Namrata Little; Bruno,Prakash; Jose,Bubba; Jeffery House; Olya Meneses; Geetha Moran; Alexandrea Yap; Chris Jacobson; Alec Delacruz; Andrei Paulson; Juan M Beltran; Ricardo Juarez; Dian Gilbert; Liam Busch; Bowen Barrett; Dianelys Simon; Mckinley Griffin Instructions Print Language: Taiwanese Discharge Orders/Prescriptions Prescriptions: No Action amlodipine 5 mg tablet 5 mg PO DAILY Qty: 30 11RF aspirin 81 mg tablet,delayed release (DR/EC) 81 mg PO DAILY Patient Comments: STOP PER DR. WINSTON PRIOR TO PROCEDURE rosuvastatin [Crestor] 5 mg [...] Follow Up: Padmini Carrasco MD [Primary Care Provider, [facility]] Disposition Disposition (needs filled in before D/C Order can be placed): Home, Self Care Charges/Coding Multi Select Codes Visit Charges Observation E&M Codin Observ/hosp same date L3 (Discharged via air flight to [facility] to their ICU, admitted same day to stabilize until tertiary acceptance.) 11/07/24 7279 Cosigner Signature (if applicable): CC: Dr. Suzanne Medley MD; Dr. Padmini Carrasco MD~ Signed [facility]10-01-2025 Procedure note [facility] Medical Records Department [address] [place] [address] EGD Report MR#: [id number] Acct: [id number] Name: ABELARDO IVORY Rep #:[id number] : 1950 74 From: Kamlesh Floyd DO PCP: Dr. Padmini Carrasco MD Status :[facility] Patient Name: Abelardo Ivory Procedure Date: 11/07/2024 9:11 PM Date of : 1950 Age: 74 Procedure: Upper GI endoscopy Indications: Hematochezia Providers: Kamlesh Floyd DO Medicines: Monitored Anesthesia Care Patient Profile: This is a 74 year old male. Refer to note in patient chart for documentation of history and physical. Patient has symptoms of acute epigastric abdominal pain. Complications: No immediate complications. Procedure: Pre-Anesthesia Assessment: - Prior to the procedure, a History and Physical was performed, and patient medications and allergies were reviewed. The patient is competent. The risks and benefits of the procedure and the sedation options and risks were discussed with the patient. All questions were answered and informed consent was obtained. Patient identification and proposed procedure were verified by the physician in the pre-procedure area. Mental Status Examination: alert and oriented. Airway Examination: normal oropharyngeal airway and neck mobility. Respiratory Examination: clear to auscultation. CV Examination: normal. ASA Grade Assessment: II - A patient with mild systemic disease. After reviewing the risks and benefits, the patient was deemed in satisfactory condition to undergo the procedure. The anesthesia plan was to use monitored anesthesia care (MAC). Immediately prior to administration of medications, the patient was re-assessed for adequacy to receive sedatives. The heart rate, respiratory rate, oxygen saturations, blood pressure, adequacy of pulmonary ventilation, and response to care were monitored throughout the procedure. The physical status of the patient was re-assessed after the procedure. After obtaining informed consent, the endoscope was passed under direct vision. Throughout the procedure, the patient's blood pressure, pulse, and oxygen saturations were monitored continuously. The Endoscope was introduced through the mouth, and advanced to the fourth part of the duodenum. Small bowel enteroscopy was deemed necessary. The upper GI endoscopy was accomplished without difficulty. The patient tolerated the procedure well. Scope In: 9:12:56 PM Scope Out: 9:28:47 PM Total Procedure Duration Time 0 hours 15 minutes 51 seconds Findings: The examined esophagus was normal. Red blood was found in the entire examined stomach. One spurting cratered duodenal ulcer with a visible vessel was found in the duodenal bulb. The lesion was 30 mm in largest dimension. Area was successfully injected with 10 mL of a 0.1 mg/mL solution of epinephrine for drug delivery. Coagulation for hemostasis using heater probe was successful. Estimated blood loss was minimal. There was evidence of a widely patent previous surgical anastomosis in the duodenal bulb. This was characterized by ulceration. Impression: - Normal esophagus. - Red blood in the entire stomach. - Spurting duodenal ulcer with a visible vessel. Injected. Treated with a heater probe. - Widely patent previous surgical anastomosis, characterized by ulceration was found in the duodenum. - No specimens collected. Recommendation: - Discharge patient to home. - NPO. - Continue present medications. Procedure Code(s): --- Professional --- 09737, Small intestinal endoscopy, enteroscopy beyond second portion of duodenum, not including ileum; with control of bleeding (eg, injection, bipolar cautery, unipolar cautery, laser, heater probe, stapler, plasma piece work checker) 79163, Unlisted procedure, small intestine CPT copyright 2021 [employer]. All rights reserved. The codes documented in this report are preliminary and upon brass plater review may be revised to meet current compliance requirements. Kamlesh Floyd DO 11/07/2024 9:36:15 PM This report has been signed electronically. Number of Addenda: 0 Note Initiated On: 11/07/2024 9:11 PM 11/07/24 2136 Date _ Kamlesh Garcia Signature: Date (if indicated) CC: Dr. Padmini Carrasco MD; Kamlesh Floyd DO ~ Date Dictated: 11/07/242110 Date Transcribed: Skiver Heel Tap: FOZIA Signed [facility]10-01-2025 Procedure note [facility] Medical Records Department [address] [place] [address] Provation Physician Letter MR#: [id number] Acct: [id number] Name: ABELARDO IVORY Rep #:[id number] : 1950 74 From: Kamlesh Floyd DO PCP: Dr. Padmini Carrasco MD Status :[facility] 11/07/2024 Ezekiel Carrasco [address] [place] [address] Re : Upper GI endoscopy procedure for Abelardo Ivory Dear Dr. Carrasco This procedure was performed on Thursday, November 07, 2024. My impressions and recommendations are as follows: Impressions : - Normal esophagus. - Red blood in the entire stomach. - Spurting duodenal ulcer with a visible vessel. Injected. Treated with a heater probe. - Widely patent previous surgical anastomosis, characterized by ulceration was found in the duodenum. - No specimens collected. Recommendations : - Discharge patient to home. - NPO. - Continue present medications. My findings are described in the full procedure note, which is enclosed. If I can be of further assistance, please feel free to contact me at . Sincerely, Kamlesh Floyd DO 11/07/2024 9:36:15 PM This report has been signed electronically. 11/07/242135 Date _ Kamlesh Floyd DO Cosigner Signature: Date (if indicated) CC: Dr. Suzanne Medley MD; Dr. Padmini Carrasco MD; Kamlesh Floyd DO ~ Date Dictated: 11/07/242110 Date Transcribed: Skiver Heel Tap: RF Signed [facility]10-01-2025 Procedure note [facility] Medical Records Department [address] [place] [address] Colonoscopy Report MR#: [id number] Acct: [id number] Name: ABELARDO IVORY Rep #:[id number] : 1950 74 From: Kamlesh Floyd DO PCP: Dr. Padmini Carrasco MD Status :[facility] Patient Name: Abelardo Ivory Procedure Date: 11/07/2024 7:39 PM Date of : 1950 Age: 74 Procedure: Colonoscopy Indications: Hematochezia Providers: Kamlesh Floyd DO Medicines: Monitored Anesthesia Care Patient Profile: This is a 74 year old male. Refer to note in patient chart for documentation of history and physical. Last Colonoscopy: date unknown. Unable to locate last colonoscopy report. Complications: No immediate complications. Procedure: Pre-Anesthesia Assessment: - Prior to the procedure, a History and Physical was performed, and patient medications and allergies were reviewed. The patient is competent. The risks and benefits of the procedure and the sedation options and risks were discussed with the patient. All questions were answered and informed consent was obtained. Patient identification and proposed procedure were verified by the physician. Mental Status Examination: alert and oriented. Airway Examination: normal oropharyngeal airway and neck mobility. Respiratory Examination: clear to auscultation. CV Examination: normal. ASA Grade Assessment: II - A patient with mild systemic disease. After reviewing the risks and benefits, the patient was deemed in satisfactory condition to undergo the procedure. The anesthesia plan was to use monitored anesthesia care (MAC). Immediately prior to administration of medications, the patient was re-assessed for adequacy to receive sedatives. The heart rate, respiratory rate, oxygen saturations, blood pressure, adequacy of pulmonary ventilation, and response to care were monitored throughout the procedure. The physical status of the patient was re-assessed after the procedure. After I obtained informed consent, the scope was passed under direct vision. Throughout the procedure, the patient's blood pressure, pulse, and oxygen saturations were monitored continuously. The adult colonoscope was introduced through the anus and advanced to the terminal ileum. The colonoscopy was performed without difficulty. The patient tolerated the procedure well. Scope In: 8:39:26 PM Scope Withdrawal Time 0 hours 12 minutes 40 seconds Scope Out: 9:01:26 PM Total Procedure Duration Time 0 hours 22 minutes 0 seconds Findings: The perianal and digital rectal examinations were normal. Hematin (altered blood/yawtry-onfezs-akrb material) was found in the entire colon. The distal ileum and terminal ileum contained hematin (altered blood/zvoqbl-amsjcd-pzgg material). Impression: - Blood in the entire examined colon. - Blood in the distal ileum and in the terminal ileum. - No specimens collected. Recommendation: - Return patient to ICU for ongoing care. - Resume previous diet. - Continue present medications. - No recommendation at this time regarding repeat colonoscopy. Procedure Code(s): --- Professional --- 10134, Colonoscopy, flexible; diagnostic, including collection of specimen(s) by brushing or washing, when performed (separate procedure) CPT copyright 2021 [employer]. All rights reserved. The codes documented in this report are preliminary and upon brass plater review may be revised to meet current compliance requirements. Kamlesh Floyd DO 11/07/2024 9:39:04 PM This report has been signed electronically. Number of Addenda: 0 Note Initiated On: 11/07/2024 7:39 PM 11/07/242138 Date _ Kamlesh Floyd DO Cosigner Signature: Date (if indicated) CC: Dr. Padmini Carrasco MD; Kamlesh Floyd DO ~ Date Dictated: 11/07/241938 Date Transcribed: Skiver Heel Tap: FOZIA Signed [facility]10-01-2025 Procedure note [facility] Medical Records Department [address] [place] [address] Provation Physician Letter MR#: [id number] Acct: [id number] Name: ABELARDO IVORY Rep #:[id number] : 1950 74 From: Kamlesh Floyd DO PCP: Dr. Padmini Carrasco MD Status :[facility] 11/07/2024 Ezekiel Carrasco [address] [place] [address] Re : Colonoscopy procedure for Abelardo Ivory Dear Dr. Carrasco This procedure was performed on Thursday, November 07, 2024. My impressions and recommendations are as follows: Impressions : - Blood in the entire examined colon. - Blood in the distal ileum and in the terminal ileum. - No specimens collected. Recommendations : - Return patient to ICU for ongoing care. - Resume previous diet. - Continue present medications. - No recommendation at this time regarding repeat colonoscopy. My findings are described in the full procedure note, which is enclosed. If I can be of further assistance, please feel free to contact me at . Sincerely, Kamlesh Floyd DO 11/07/2024 9:39:04 PM This report has been signed electronically. 11/07/242138 Date _ Kamlesh Dardenignsary Signature: Date (if indicated) CC: Dr. Suzanne Medley MD; Dr. Padmini Carrasco MD; Kamlesh Floyd DO ~ Date Dictated: 11/07/241938 Date Transcribed: Skiver Heel Tap: RF Signed [facility]10-01-2025 [facility]10-01-2025 Consult note Author Raymond Anthony [facility] Note Date/Time November 07, 2024 8: 14pm [facility] Medical Records Department [address] [place] [address] Pre-Anesthesia Evaluation 11/07/242002 MR#: [id number] Acct: [id number] Name: ABELARDO IVORY Rep #:[id number] : 1950 74 From: Raymond Spann PCP: Dr. Padmini Carrasco MD Status :REG [facility] Y Race: C Location: [facility]06- ASA Classification* ASA Classification ASA Classification: 4 and E Assessment & Plan Anesthesia* Anesthesia Assessment Anesthesia Assessment: Discussed sedation and/or anesthesia options, risks, benefits, and alternatives with patient/parents/legal guardian/POA. Questions invited. The patient/parents/legal guardian/POA seems to understand and agrees to proceedwith anesthesia plan. Reviewed the physical assessment, medical history, allergy history and patient home medications list prior to surgery/procedure/anesthetic and documented any changes. Performed airway and anesthesia risk assessments. Anesthesia Type Anesthesia Type: MAC History Source History Obtained from:: Patient and Chart Anesthesia Focused Assessment* Temperature: 97.6 F Pulse Rate: 78 Blood Pressure: 124/43 Respiratory Rate: 16 Pulse Ox: 98 Oxygen Delivery Method: Nasal Cannula Oxygen Flow Rate (L/min): 2 Airway Assessment Mouth opens: >3 cm Mallampati Score: III Teeth Condition: Dentures and Upper Labs Anesthesia Preop lab: CBC WBC, (4.4-11.0) 10.8 K/mm3 Today, 15:55 RBC, (4.6-6.2) 3.01 M/mm3 L Today, 15:55 Hgb, (13.0-16.5) 7.8 g/dL L Today, 17:57 Hct, (40-54) 29.2 % L Today, 15:55 Plt Count, (150-450) 229 K/mm3 Today, 15:55 CHEMISTRY Potassium, (3.3-5.1) 5.3 mmol/L H Today, 15:55 Sodium, (133-145) 141 mmol/L Today, 15:55 Magnesium, (1.6-2.6) 1.9 mg/dL 03/03/22, 05:36 Phosphorus, (2.5-4.9) 4.9 mg/dL 03/03/22, 05:36 BUN, (4-19) 47 mg/dL H Today, 15:55 Creatinine, (0.70-1.20) 2.09 mg/dL H Today, 15:55 Glucose, (70-99) 139 mg/dL H Today, 15:55 TSH, (0.300-4.200) 3.680 uIU/mL 05/10/24, 15:16 COAG PT, (11.7-14.9) 14.5 SECONDS Today, 18:30 Pre-Assessment Diagnosis/Proposed Procedure Planned Operative Procedure(s): Colonoscopy Anesthesia History 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 When Was Last Pacemaker Check QUESTION #4 FULL TEXT: You/Your Family Experience fever (hyperthermia) with Anesthesia Last Oral Intake Last Oral intake: Last Oral Intake NPO since Meds taken in AM with sips of water? 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 - welding engineer Female HX of Motion Sickness HX of N/V After Surgery Non-Smoker Duration of Surgery greater than 60 minutes Number of Risk Factors PONV Score Height & Weight Height & Weight: Anesthesia: Height & Weight Height 5 ft 6 in 11/07/24 15:32 Weight: 64.4 kg 11/07/24 18:05 Body Mass Index (BMI) 22.8 11/07/24 18:05 Respiratory Assessment Respiratory Assessment - welding engineer: Respiratory Tract Infection Hx - welding engineer Hx Respiratory Tract Infection No 06/15/24 08:41 STOP Sleep Apnea STOP Sleep Apnea - welding engineer: STOP Sleep Apnea - welding engineer Hx Hypertension Yes: CONTROLLED ON MED 06/15/24 08:41 Hx Sleep Apnea No 06/27/24 15:00 CPAP BIPAP Do you snore loudly (louder than talking or can be heard Do you often feel tired/ fatigued/ sleepy during daytime? Has anyone observed you stop breathing during sleep? STOP Results QUESTION #5 FULL TEXT : Do you snore loudly (louder than talking or can be heard through closed doors)? 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 Specify any problems Hx of Preganancy in last 3 Months Nurse Filling Out Transfusion & Questions: Date: Time: Patient unable to answer at this time (ie. confused, unrespo /Reproduction History /Reproductive History - welding engineer: /Reproductive Hx- welding engineer Hx Now Gestational Age (in weeks): EDC: Hx Hx Para Hx Section SAB PFSH Medical History Bladder cancer Wears dentures Wears glasses Bruising Easy bruising High cholesterol Smoker Shortness of breath on exertion History of echocardiogram Cardiology follow-up encounter Stage 3b chronic kidney disease (CKD) Thrombocytopenia Chronic kidney insufficiency Pleural effusion Secondary pulmonary arterial hypertension Atherosclerotic heart disease 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 Intention tremor Carotid stenosis, bilateral Hyperlipidemia Nonrheumatic aortic (valve) stenosis Essential hypertension Tobacco dependence Bilateral inguinal hernia Left carotid bruit Abdominal aortic aneurysm (AAA) Anemia Subcutaneous mass of back PUD (peptic ulcer disease) Cough Arthritis Home Medications ?Medication ?Instructions ?Recorded ?Last Taken ?Type aspirin 81 mg tablet,delayed 81 mg PO DAILY heart heal th 03/02/22 01/12/24 History release rosuvastatin 5 mg tablet (Crestor) 5 mg PO DAILY uzma sterol 03/02/22 03/02/22 History amlodipine 5 mg tablet 5 mg PO DAILY #30 tabs 02/28 Unknown Rx cholecalciferol (vitamin D3) 25 25 mcg PO DAILY Unknown History mcg (1,000 unit) capsule metoprolol tartrate 25 mg tablet 12.5 mg (1/2 x 25 mg) PO BID #90 03/22/24 06/27/24 05:30 Rx tabs acetaminophen 500 mg capsule 1,000 mg PO Q6H PRN pain 06/13/24 Unknown History fluticasone fur. 200 mcg-umeclid 1 inh inhalation RUFINA Y PRN SOB 06/13/24 Unknown History 62.5 mcg-vilant 25 mcg inhalat.powder (Trelegy Ellipta) Allergy/AdvReac Type Severity Reaction Status Date / Time No Known Allergies Allergy Verified 11/07/24 15:31 Family History Sister Asthma Mother Arthritis Diabetes Brother Cancer Unsure what kind- just a lump on his neck Surgical History Neoplasm of bladder Hx of inguinal hernia repair S/P inguinal hernia repair History of cardiac catheterization S/P AAA repair 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) History of left heart catheterization (11/27/18) History of aortic valve replacement (02/12/19) Social History household members: none Smoking Status: Current every day smoker tobacco type: cigarettes quit status: has quit before alcohol intake: never substance use type: does not use caffeine: Yes Type: coffee Number of servings: 3 what type of physical activity do you participate in: other frequency: 3-4 times per week seatbelt use: always Prior Cardiac Testing/Procedures Prior Cardiac Testing/Procedures: Echocardiogram (EF 55%. ) Addt'l Information Additional Findings: Cardiology history reviewed reviewed Review of Systems (Anesthesia) ROS Narrative System reviewed and no additional complaints, except as documented. Physical Exam Const alert, oriented x3 and average body habitus Resp normal respiratory effort and normal air movement Auscultation: clear to auscultation bilaterally Cardio regular rate and regular rhythm Back/Spine normal ROM Neuro oriented x3 and moves all extremities 11/07/242013 <Electronically signed by Raymond Anthony MD> Date _ Raymond Anthony MD Cosigner Signature: Date CC: ~ Signed [facility] Work Phone: 1(587) 905-902810-01-2025 History and physical note Author Suzanne Medley [facility] Note Date/Time November 07, 2024 9: 47pm [facility] Medical Records Department [address] [place] [address] H&P Exam - Hospitalist 11/07/242012 MR#: [id number] Acct: [id number] Name: ABELARDO IVORY Rep #:[id number] 22 : 1950 74 From: Suzanne Medley MD PCP: Dr. Padmini Carrasco MD Status :[facility] [place] Location: ICU ICU03-1 HPI - General General Date of Admission: 11/07/24 Date of Service: 11/07/24 Chief Complaint: BRBPR, copious. HPI Narrative The patient is a 74 y/o M w/ PMHx: COPD, Bladder Cancer s/p transurethral resection on chemotherapy and [facility], Vavular heart disease status post AVR, CAD status post CABG x 1, CKD stage III unclear subtype per GFR trending, HTN, HLD, Tobacco use, AAA s/p rupture s/p repair who presents to the [facility] ED on 11/07/2024 with significant bright red blood per rectum with his last chemotherapy noted 10/19/2024 in addition to ongoing radiation with last noted 10/22/2024 with significant bright red blood ongoing eventually becoming darker with severe significant ongoing bowel movements foul-smelling in nature with no associated abdominal pain nor any nausea or emesis prompting ED evaluation. Patient did note when he started to have copious bleeding in the ED he did have some mild abdominal cramping. He denies associated lightheadedness/dizziness/dyspnea/chest pain. He notes chronic dysuria and frequency. Workup in the ED included T96.1 Temporal, heart rate 79, BP 83/63, respiratory rate 18, 97% on room air with BP at 1900 decreasing down to 77/60 and then 78/55 with a MAP of 62 improving following PRBC with most recent [id number], heart rate 78, BP 03/02/1972, respiratory rate 16, 98% oxygenation, CBC with WC 10.8, hemoglobin initially 9.1 at 1555 with repeat at 1757 noted to be hemoglobin 7.8, platelet 229 with left shift, unremarkable coags, CMP with potassium 5.3 not noted to be hemolyzed, BUN/creatinine 47/2.09, GFR 33, [id number], lactic acid 2.2, hepatic profile not marked appearing, troponin 16, urine noted to be cloudy, urine protein 100, occult blood 50, negative nitrite, leukocyte esterase 500, urine RBCs 5-10, urine WBCs greater than 100 with 2+ urine bacteria, CTA abdomen and pelvis with and without contrast with no active hemorrhaging although patient with significant active bleed in the ED which had been profuse prompting emergent transition to endoscopy for colonoscopy with , also noted mild wall thickening and inflammatory changes involving the proximal duodenum, distal rectosigmoid colon suggestive of enterocolitis, markedwall thickening of the bladder with surrounding inflammatory fat stranding, similar mild left hydroureteronephrosis with evidence of a left urethritis/pyelitis, stable appearing irregular diffuse fusiform aneurysmal dilatation of the infrarenal abdominal aorta and bilateral common iliac arterieswith eccentric noncalcified plaque/mural thrombus, chest x-ray with no acute cardiopulmonary findings however extensive pulmonary emphysema evident. In the ED patient administered 1 unit PRBC stat given hemorrhagic shock. Patient was evaluated in the endoscopy suite at [facility] on 11/07/2024 and at the time of evaluation, transfer to a tertiary hospital was felt to be in the patient's best interest due to significant lower GI bleed, hemorrhagic shock, high concern for friability of bowel given ongoing and very recent radiation with high risk for rebleeding. Patient had transitioned from the ED to the endoscopy lab for emergent endoscopy given his hemorrhagic shock thus transfer attempts were not initiated initially in the ED. Discussed case with Dr. Floyd who agreed that transfer even following endoscopy would be inpatient best interest in order to have IR capabilities if necessary and higherlevel of care with onsite farm operations manager team should patient decompensate again. Given the need for ongoing medical care, in the interim in the best interest of the patient, will proceed with admission to [facility] ICU following endoscopy and care will be provided here until tertiary facility has an available staffed bed. Pt and/or family are aware of the transfer, the reasoning behind the need for transfer, and that until a staffed bed becomes available, we will provide evidence-based care to the best of our abilities, with the limitations of care here being fully addressed. Discussed this plan ofcare with the patient and the family and did contact per discussion with Dr. Floyd [facility] as initial and they at this time are requesting that they be recontacted once the endoscopy is complete to know better where to place the patient. 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 Intention tremor Carotid stenosis, bilateral Hyperlipidemia Nonrheumatic aortic (valve) stenosis Essential hypertension Tobacco dependence Bilateral inguinal hernia Left carotid bruit Abdominal aortic aneurysm (AAA) Anemia Subcutaneous mass of back PUD (peptic ulcer disease) Cough Arthritis Home Medications ?Medication ?Instructions ?Recorded ?Last Taken ?Type aspirin 81 mg tablet,delayed 81 mg PO DAILY heart heal th 03/02/22 01/12/24 History release rosuvastatin 5 mg tablet (Crestor) 5 mg PO DAILY uzma sterol 03/02/22 03/02/22 History amlodipine 5 mg tablet 5 mg PO DAILY #30 tabs 02/28 Unknown Rx cholecalciferol (vitamin D3) 25 25 mcg PO DAILY Unknown History mcg (1,000 unit) capsule metoprolol tartrate 25 mg tablet 12.5 mg (1/2 x 25 mg) PO BID #90 03/22/24 06/27/24 05:30 Rx tabs acetaminophen 500 mg capsule 1,000 mg PO Q6H PRN pain 06/13/24 Unknown History fluticasone fur. 200 mcg-umeclid 1 inh inhalation RUFINA Y PRN SOB 06/13/24 Unknown History 62.5 mcg-vilant 25 mcg inhalat.powder (Trelegy Ellipta) Allergy/AdvReac Type Severity Reaction Status Date / Time No Known Allergies Allergy Verified 11/07/24 15:31 Family History Sister Asthma Mother Arthritis Diabetes Brother Cancer Unsure what kind- just a lump on his neck Surgical History Neoplasm of bladder Hx of inguinal hernia repair S/P inguinal hernia repair History of cardiac catheterization S/P AAA repair 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) History of left heart catheterization (11/27/18) History of aortic valve replacement (02/12/19) Social History (Updated 11/07/24 @ 20:[address] Suzanne Medley MD) household members: none Smoking Status: Current every day smoker tobacco type: cigarettes Smoking packsper day: 0.25 Smoking cigarettes per day: 5.0 quit status: has quit before alcohol intake: never substance use type: does not use caffeine: Yes Type: coffee Number of servings: 3 what type of physical activity do you participate in: other frequency: 3-4 times per week seatbelt use: always ROS ROS Narrative Admission Review of Systems: CONSTITUTIONAL: No weight loss, fever, chills, + weakness or fatigue. HEENT: Eyes: No visual loss, blurred vision, double vision or yellow sclerae. Ears, Nose, Throat: No hearing loss, sneezing, congestion, runny nose or sore throat. SKIN: No rash or itching, lesions, wounds except + occasional stage ecchymoses, abrasion. CARDIOVASCULAR: No chest pain, chest pressure or chest discomfort, palpitations,edema, orthopnea, syncopal events. RESPIRATORY: No shortness of breath, cough or sputum, wheezing, hemoptysis. GASTROINTESTINAL: + Bright red blood per rectum, copious continued loose stools,mild abdominal cramping. No anorexia, nausea, vomiting or diarrhea, no marked abdominal pain. GENITOURINARY: + Chronic dysuria, frequency. No urgency or retention. NEUROLOGICAL: No headache, dizziness, syncope, paralysis, ataxia, numbness or tingling in the extremities, focal weakness, change in bowel or bladder control,seizure. MUSCULOSKELETAL: + muscle, back pain, joint pain or stiffness. HEMATOLOGIC: + Acute anemia, easy bleeding/bruising. LYMPHATICS: No enlarged nodes. No history of splenectomy. PSYCHIATRIC: No history of depression or anxiety. ENDOCRINOLOGIC: No reports of sweating, cold or heat intolerance. No polyuria orpolydipsia. ALLERGIES: No history of asthma, hives, eczema or rhinitis. Vital Signs Vital Signs Vital Signs: 11/07/24 15:32 11/07/24 15:57 11/07/24 16:35 Temperature 96.1 F L Temperature Source Temporal Pulse Rate 79 79 Respiratory Rate 18 16 Blood Pressure 83/63 L 102/72 132/75 H Blood Pressure Mean 69 82 94 Blood Pressure Source Blood Pressure Position Blood Pressure Location Pulse Ox 97 92 Oxygen Delivery Method Room Air Room Air Oxygen Flow Rate (L/min) 11/07/24 17:00 11/07/24 18:00 11/07/24 18:35 Temperature Temperature Source Pulse Rate 76 110 H 79 Respiratory Rate 30 H 18 Blood Pressure 144/75 H 142/126 H Blood Pressure Mean 98 131 Blood Pressure Source Blood Pressure Position Blood Pressure Location Pulse Ox 99 Oxygen Delivery Method Nasal Cannula Oxygen Flow Rate (L/min) 11/07/24 18:45 11/07/24 18:48 11/07/24 18:54 Temperature 96.6 F L Temperature Source Temporal Pulse Rate 81 77 Respiratory Rate 16 Blood Pressure 128/114 H 77/60 L 78/55 L Blood Pressure Mean 118 65 62 Blood Pressure Source Blood Pressure Position Blood Pressure Location Pulse Ox 92 Oxygen Delivery Method Oxygen Flow Rate (L/min) 11/07/24 19:00 11/07/24 19:00 11/07/24 19:10 Temperature 97.3 F L 97.3 F L 97.3 F L Temperature Source Temporal Temporal Temporal Pulse Rate 76 72 75 Respiratory Rate 22 H 17 20 H Blood Pressure 95/63 112/73 113/71 Blood Pressure Mean 73 86 85 Blood Pressure Source Monitor Blood Pressure Position Blood Pressure Location Pulse Ox 98 97 Oxygen Delivery Method Nasal Cannula Nasal Cannula Oxygen Flow Rate (L/min) 2 11/07/24 19:19 11/07/24 19:37 11/07/24 19:45 Temperature 97.6 F L 97.6 F L Temperature Source Temporal Pulse Rate 74 78 74 Respiratory Rate 16 16 14 Blood Pressure 125/43 H 124/43 H 130/91 H Blood Pressure Mean 70 70 104 Blood Pressure Source Monitor Blood Pressure Position Semi-Fowlers Blood Pressure Location Right Arm Pulse Ox 98 98 100 Oxygen Delivery Method Nasal Cannula Oxygen Flow Rate (L/min) 2 11/07/24 20:10 Temperature 97.6 F L Temperature Source Pulse Rate 78 Respiratory Rate 16 Blood Pressure 124/43 H Blood Pressure Mean Blood Pressure Source Blood Pressure Position Blood Pressure Location Pulse Ox 98 Oxygen Delivery Method Nasal Cannula Oxygen Flow Rate (L/min) 2 Weight Weight: 141 lb 15.643 oz Body Mass Index (BMI) 22.8 Physical Exam Narrative Physical Examination: General: Awake, alert, oriented to self, place and recent events, remains cooperative, laying in the bed in the endoscopy suite, pale appearing, fatigued. Skin: Pale color, normal turgor, no icterus, no cyanosis, occasional stage ecchymoses, abrasion. HEENT: AT/NC, EOMI, PERRLA, moderately dry MM, no carotid bruits or JVD noted. Lungs: Severely diminished, greater bases, mildly increased respiratory rate butno distress, occasional soft end expiratory wheeze, no rales or rhonchi. Heart: Regular rate and rhythm; no gallop, rub audible, status post previous AVR. Abdomen: Soft, NTTP, ND, significant hyperactive BS, no markedly appreciated HSM. Extremities: No cyanosis, no clubbing, no significant distal edema noted. Neurological: Patient awake, alert, oriented as noted, cognitive function currently appears baseline intact; pupils equally reactive to light and accommodation, cranial nerves grossly normal, moving all 4 extremities, no focaldeficits, strength severely globally decreased secondary to acute presentation and underlying comorbidities. Psychiatric: Affect appears flat, fatigued, no acute evidence of depressive or anxiety feelings. Results Lab / Micro Data 11/07/24 20:15 11/07/24 15:55 Labs: Laboratory Results - last 24 hr 11/07/24 15:55: WBC 10.8, RBC 3.01 L, Hgb 9.1 L, Hct 29.2 L, MCV 97.0 H, MCH 30.2, MCHC 31.2 L, RDW Std Deviation 55.2 H, RDW Coeff of Manjit 15.6 H, Plt Count 229, MPV 8.9, Immature Gran % (Auto) 0.700, Neut % (Auto) 76.0 H, Lymph % (Auto)11.8 L, [place] % (Auto) 9.8, Eos % (Auto) 1.1, Baso % (Auto) 0.6, Absolute Neuts (auto) 8.2 H, Absolute Lymphs (auto) 1.27, Nucleated RBC % 0, Sodium 141, Potassium 5.3 H, Chloride 106, Carbon Dioxide 22.6, Anion Gap 12, BUN 47 H, Creatinine 2.09 H, Est GFR (MDRD) Non-Af 33 L, BUN/Creatinine Ratio 22.4 H, Glucose 139 H, Lactic Acid 2.2 H*, Calcium 8.3, Total Bilirubin 0.15, AST 14, ALT9, Alkaline Phosphatase 68, Total Protein 5.7 L, Albumin 3.3 L, Globulin 2.4, Albumin/Globulin Ratio 1.4, Lipase 43 11/07/24 17:26: Urine Color Straw, Urine Clarity Cloudy, Urine pH 6.0, Ur Specific [place] 1.015, Urine Protein 100 H, Urine Glucose (UA) Normal, Urine Ketones Negative, Urine Occult Blood 50 H, Urine Nitrite Negative, Urine Bilirubin Negative, Urine Urobilinogen Normal, Ur Leukocyte Esterase 500 H, Urine RBC 5-10 SEEN, Urine WBC >100 SEEN, Ur Squamous Epith Cells 0-5 SEEN, Ur Transition Epith Cell 0-5 SEEN, Urine Bacteria 2+, Urine Mucus 0 SEEN 11/07/24 17:57: Hgb 7.8 L, Troponin T High Sens 16 11/07/24 18:30: PT 14.5, INR 1.1, APTT 26.5 11/07/24 18:40: Blood Type A POSITIVE, Antibody Screen NEGATIVE, Crossmatch See Detail 11/07/24 18:40: Crossmatch See Detail Micro: Microbiology 11/07/24 15:45 Stool Stool Occult Blood (ASIF) - Final Occult Blood Positive Imaging Radiology Impression Abdomen/Pelvis CTA 11/07/24 15:42 IMPRESSION: 1. No CT evidence for active gastrointestinal hemorrhage. 2. Mild wall thickening and inflammatory changes involving the proximal duodenum, and distal rectosigmoid colon suggestive of enterocolitis. Nonspecific diarrheal illness with fluid in the colon. 3. Marked wall thickening of the bladder with surrounding inflammatory fat stranding, may be infectious/inflammatory or related to known neoplasm. Possibly treatment related change. 4. Similar mild left hydroureteronephrosis. Evidence of left ureteritis/pyelitis. 5. Stable appearance of irregular diffuse fusiform aneurysmal dilatation of the infrarenal abdominal aorta and bilateral common iliac arteries, with eccentric noncalcified plaque/mural thrombus. Reading Location: [id number] Chest X-Ray 11/07/24 18:53 IMPRESSION: No focal consolidation. Extensive pulmonary emphysema. Reading Location: [facility] Assessment & Plan Assessment/Plan (1) GI bleed: (2) Hemorrhagic shock: PLAN: Plan The patient is a 74 y/o M w/ PMHx: COPD, Bladder Cancer s/p transurethral resection on chemotherapy and [facility], Vavular heart disease status post AVR, CAD status post CABG x 1, CKD stage III unclear subtype per GFR trending, HTN, HLD, Tobacco use, AAA s/p rupture s/p repair who presents to the [facility] ED on 11/07/2024 with significant bright red blood per rectum with his last chemotherapy noted 10/19/2024 in addition to ongoing radiation with last noted 10/22/2024 with significant bright red blood ongoing eventually becoming darker with severe significant ongoing bowel movements foul-smelling in nature with no associated abdominal pain nor any nausea or emesis prompting ED evaluation. #1. Acute Hermorrhagic Shock secondary to Acute Lower GI Bleed w/ resultant Acute Blood Loss Anemia with associated lactic acidosis suspected primary secondary to associated hypovolemia/demand: Patient emergently transitioned to endoscopy given severity of bleeding despite CTA with no acute bleed evidence, continue to have copious blood per rectum with MAP less than 65, given significant history concern for friability of bowel also, in addition to fact this is a lower component may require IR potential thus discussed with gastroenterology and will plan to initiate transfer however in the interim whileawaiting a tertiary facility bed, will admit to the ICU, maintain on telemetry monitoring, continue to cycle H&H, continue PRBC administration initiate per ED,hold all antiplatelet therapy, initiate protonix with ongoing NPO status, continue GI consultation, request farm operations manager involvement while awaiting for tertiary facility transfer. #2. Acute Complicated Urinary Tract Infection with unchanged mild left hydroureteronephrosis with evidence of a left urethritis/pyelitis: UA upon ED evaluation remarkable, pending UCx, continue IVFs, monitor I/Os, continue IV Rocephin given no previous cultures notable w/ transition as able pending sensitivities and speciation. #3. Lactic acidosis: Likely secondary to shock as noted, mildly elevated 2.2, continue treatment as noted) per facility protocol if remains at [facility] as transfer is pending. #4. Hyperkalemia, mild: Admission potassium 5.3, not markedly elevated, will continue hydration, repeat CMP in AM if remains at [facility] astransfer is pending. #5. Bladder cancer: Patient with transurethral bladder resection 06/27/[address] Winston, following with [facility] oncology on chemotherapy and radiation with last chemotherapy 10/19/2024 and last radiation 10/22/2024, magnesium and phosphorus levels requested, complicates presentation as noted #2,encourage continued follow-up outpatient with oncology and urology as previouslyarranged. #6. Chronic stable appearing in for abdominal aortic aneurysm, fusiform as wellas bilateral common iliac arteries: Patient with noted 12/28/2021 CT abdomen imaging demonstrating at that time 5 cm infrarenal abdominal aortic aneurysm with adjacent retroperitoneal fluid suggesting of aneurysm leak transferred to [facility] undergoing thoracoretroperitoneal for ruptured juxtarenal abdominal aortic aneurysm repair. Noted on CTA, stable appearing, encourage continued follow-up with vascular surgery as previously arranged. #7. Valvular heart disease: Patient with history of aortic stenosis diagnosed in 2012, status post AVR while also having CABG, most recent ECHO 04/29/2023 demonstrated preserved ejection fraction, no regional wall motion abnormalities,aortic valve with peak gradient 25 mmHg and mean valve gradient 13 mmHg. #8. CAD: Status post CABG x 1 with SVG to RCA 02/12/2019 at [facility], additionally at the same time had AVR, temporally holding antiplatelet therapy, hold metoprolol, continue statin therapy. #9. Chronic Kidney Disease Stage III, unclear subtype or GFR trending: Admission BUN/Cr 47/2.09, GFR 33, baseline renal function primarily 1.4-2.6 but is vacillated, most recently 07/09/2024 creatinine 1.74, repeat BMP in AM. #10. Hypertension: Given presentation with shock as noted, holding all hypertensive regimen, add back once clinically appropriate. #11. Hyperlipidemia: Will continue patient statin therapy. #12. Tobacco Abuse: Encouraged cessation, inpatient consultation per RT, NR if desired. #13. Chronic COPD: Will temporally hold home inhalers and in the interim we will transition to ATC duonebs, PRN albuterol, HOB, IS parameters. Encourage tobacco cessation. #14. DVT prophylaxis: SCDs. #15. CODE status: Patient HCPOA notes his daughter and son are his HCPOA and living will is currently in place. Discussed CODE status at length including difference between FULL code, DNR-CCA and DNR-CC status. Following discussions about the differences in these status, requested DNR-CCA, no intubation. Clarified also if he should still have a heart beat but had respiratory distressand he noted he would not want to be intubation. He does not want any aggressiveinterventions or procedures. Advanced Care Planning Face to Face Time: 16 minutes. Charges/Coding Visit Charges Inpatient E&M: 08021 Init Hosp L3 Procedures Hospitalists Procedures: 92538 Advncd Care Plan 30 Min 11/07/242052 <Electronically signed by Suzanne Medley MD> Cosigner Signature (if applicable): CC: Dr. Suzanne Medley MD; Dr. Padmini Carrasco MD~ Signed ADDENDUM by Dr. Suzanne Medley MD on 11/07/24 at 2147 Addendum Upper and lower scopes performed. Blood in the entire examined colon and also blood in the distal ileum and in the terminal ileum, normal esophagus, red bloodin the entire stomach, spurting duodenal ulcer with a visible vessel with injection/heater probe, widely patent previous surgical anastomosis, characterized by ulceration was found in the duodenum. Contacting [facility] now to initiate transfer. 11/07/242146<Electronically signed by Suzanne Medley MD> Cosigner Signature (if applicable): cc: Dr. Suzanne Medley MD; Dr. Padmini Carrasco MD ~* Signed [facility] Work Phone: 1(510) 831-256210-01-2025 Consult note Author Kamlesh Floyd [facility] Note Date/Time November 07, 2024 8: 08pm [facility] Medical Records Department [address] [place] [address] Consultation - GI 11/07/242005 MR#: [id number] Acct: [id number] Name: ABELARDO IVORY Rep #:[id number] : 1950 74 From: Kamlesh Floyd DO PCP: Dr. Padmini Carrasco MD Status :[facility] Location: [address] Consult Data Date of Consult: 11/07/24 HPI Narrative Reason for Consultation: GI bleed HPI Narrative: ABELARDO IVORY, is a 74 M who presents to the emergency room with multiple episodes of abdominal pain followed by lower GI bleeding. He underwent a transurethral bladder resection on 06/27/[address] Winston for concerns of a bladder mass. He states that he will be starting chemo treatments soon at [facility]. Patient has a history of aortic stenosis diagnosed in 2012. Patient underwent coronary angiography which revealed 80% stenosis in the RCA and patient was referred to [facility] for aortic valve and RCA revascularization. Patient underwent AVR plus CABG x 1 (Perimount #23, SVG to RCA at [facility] on 02/12/2019). Patient did well postoperatively with echocardiogram demonstrating preserved ejection fraction, normally functioning prosthetic aortic valve with peak gradient 25 mmHg and mean gradient of 13 mmHg. Patient was diagnosed with an abdominal aortic aneurysm and was sent to [place] for an opinion. It was noted to [...] of aneurysm leak. Patient was transferred to [facility] facility and on 12/28/2021 patient proceeded with thoracoretroperitoneal ruptured juxtarenal abdominal aortic aneurysm repair. I was called to see him due to the fact that he had multiple episodes of lower GI bleeding. His initial hemoglobin was 9.3. He dropped down to 7.1. He did get transfused 1 unit of packed red blood cells. He had a CT angiography to look at his aortic aneurysm but it did not show any signs of bleeding from the aneurysm. I did show some thickening in his rectosigmoid colon in his duodenum. 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 Intention tremor Carotid stenosis, bilateral Hyperlipidemia Nonrheumatic aortic (valve) stenosis Essential hypertension Tobacco dependence Bilateral inguinal hernia Left carotid bruit Abdominal aortic aneurysm (AAA) Anemia Subcutaneous mass of back PUD (peptic ulcer disease) Cough Arthritis Home Medications ?Medication ?Instructions ?Recorded ?Last Taken ?Type aspirin 81 mg tablet,delayed 81 mg PO DAILY heart heal th 03/02/22 01/12/24 History release rosuvastatin 5 mg tablet (Crestor) 5 mg PO DAILY uzma sterol 03/02/22 03/02/22 History amlodipine 5 mg tablet 5 mg PO DAILY #30 tabs 02/28 Unknown Rx cholecalciferol (vitamin D3) 25 25 mcg PO DAILY Unknown History mcg (1,000 unit) capsule metoprolol tartrate 25 mg tablet 12.5 mg (1/2 x 25 mg) PO BID #90 03/22/24 06/27/24 05:30 Rx tabs acetaminophen 500 mg capsule 1,000 mg PO Q6H PRN pain 06/13/24 Unknown History fluticasone fur. 200 mcg-umeclid 1 inh inhalation RUFINA Y PRN SOB 06/13/24 Unknown History 62.5 mcg-vilant 25 mcg inhalat.powder (Trelegy Ellipta) Allergy/AdvReac Type Severity Reaction Status Date / Time No Known Allergies Allergy Verified 11/07/24 15:31 Family History Sister Asthma Mother Arthritis Diabetes Brother Cancer Unsure what kind- just a lump on his neck Surgical History Neoplasm of bladder Hx of inguinal hernia repair S/P inguinal [...] week seatbelt use: always ROS Constitutional Constitutional: Denies fatigue, fever(s), poor appetite, weight gain or weight loss Gastrointestinal Gastrointestinal: Denies belching, bloating, change in bowel habits, change in stool character, chewing difficulty, coffee ground emesis, constipation, cramping, diarrhea, dyspepsia, dysphagia, early satiety, excessive flatus, fecalincontinence, heartburn, hematemesis, hematochezia, hemorrhoids, loose stools, melena, nausea, odynophagia, rectal bleeding, tenesmus, vomiting or weight changes Physical Exam Const alert, oriented x3, no apparent distress and healthy appearing General Appearance: cooperative GI normal to inspection, nondistended, normoactive bowel sounds, soft to palpation,non-tender and non-distended Percussion: normal to percussion Rectal Exam: deferred Lab / Micro Data 11/07/24 17:57 11/07/24 15:55 Labs: Laboratory Results - last 24 hr 11/07/24 15:55: WBC 10.8, RBC 3.01 L, Hgb 9.1 L, Hct 29.2 L, MCV 97.0 H, MCH 30.2, MCHC 31.2 L, RDW Std Deviation 55.2 H, RDW Coeff of Manjit 15.6 H, Plt Count 229, MPV 8.9, Immature Gran % (Auto) 0.700, Neut % (Auto) 76.0 H, Lymph % (Auto)11.8 L, [place] % (Auto) 9.8, Eos % (Auto) 1.1, Baso % (Auto) 0.6, Absolute Neuts (auto) 8.2 H, Absolute Lymphs (auto) 1.27, Nucleated RBC % 0, Sodium 141, Potassium 5.3 H, Chloride 106, Carbon Dioxide 22.6, Anion Gap 12, BUN 47 H, Creatinine 2.09 H, Est GFR (MDRD) Non-Af 33 L, BUN/Creatinine Ratio 22.4 H, Glucose 139 H, Lactic Acid 2.2 H*, Calcium 8.3, Total Bilirubin 0.15, AST 14, ALT9, Alkaline Phosphatase 68, Total Protein 5.7 L, Albumin 3.3 L, Globulin 2.4, Albumin/Globulin Ratio 1.4, Lipase 43 11/07/24 17:26: Urine Color Straw, Urine Clarity Cloudy, Urine pH 6.0, Ur Specific [place] 1.015, Urine Protein 100 H, Urine Glucose (UA) Normal, Urine Ketones Negative, Urine Occult Blood 50 H, Urine Nitrite Negative, Urine Bilirubin Negative, Urine Urobilinogen Normal, Ur Leukocyte Esterase 500 H, Urine RBC 5-10 SEEN, Urine WBC >100 SEEN, Ur Squamous Epith Cells 0-5 SEEN, Ur Transition Epith Cell 0-5 SEEN, Urine Bacteria 2+, Urine Mucus 0 SEEN 11/07/24 17:57: Hgb 7.8 L, Troponin T High Sens 16 11/07/24 18:30: PT 14.5, INR 1.1, APTT 26.5 11/07/24 18:40: Blood Type A POSITIVE, Antibody Screen NEGATIVE, Crossmatch See Detail 11/07/24 18:40: Crossmatch See Detail Micro: Microbiology 11/07/24 15:45 Stool Stool Occult Blood (ASIF) - Final Occult Blood Positive Imaging Radiology Impression Abdomen/Pelvis CTA 11/07/24 15:42 IMPRESSION: 1. No CT evidence for active gastrointestinal hemorrhage. 2. Mild wall thickening and inflammatory changes involving the proximal duodenum, and distal rectosigmoid colon suggestive of enterocolitis. Nonspecific diarrheal illness with fluid in the colon. 3. Marked wall thickening of the bladder with surrounding inflammatory fat stranding, may be infectious/inflammatory or related to known neoplasm. Possibly treatment related change. 4. Similar mild left hydroureteronephrosis. Evidence of left ureteritis/pyelitis. 5. Stable appearance of irregular diffuse fusiform aneurysmal dilatation of the infrarenal abdominal aorta and bilateral common iliac arteries, with eccentric noncalcified plaque/mural thrombus. Reading Location: [facility] Chest X-Ray 11/07/24 18:53 IMPRESSION: No focal consolidation. Extensive pulmonary emphysema. Reading Location: [facility] Assessment & Plan Assessment/Plan (1) GI bleed: PLAN: Differential diagnosis for the lower GI bleed would be radiation-induced proctitis, diverticular bleed, angiodysplasia, aortic enteric fistula with bleeding. He will undergo colonoscopy and possible upper endoscopy. He was explained alternatives, risk and benefits could not withstand bleeding, infection, sepsis, perforation, need for emergent urgent . He will have anASA of 3. Charges/Coding Visit Charges Inpatient E&M: 07642 Init Hosp L3 11/07/242007 <Electronically signed by Kamlesh Floyd DO> Cosigner Signature (if applicable): CC: Dr. Padmini Carrasco MD; Kamlesh Floyd DO~ Signed [facility] Work Phone: [phone]) 659-271910-01-2025 Consult note [facility] Medical Records Department [address] [place] [address] Anesthesia Postop Eval I 11/07/242199 MR#: [id number] Acct: [id number] Name: ABELARDO IVORY Rep #:[id number] : 1950 74 From: Raymond Spann PCP: Dr. Padmini Carrasco MD Status :[facility] Y Race: C Location: ICU ICU Anesthesia: Postop Eval I Current Vital Signs Temperature: 36 F Pulse Rate: 72 Blood Pressure: 129/80 Respiratory Rate: 15 Pulse Ox: 100 Oxygen Delivery Method: Venturi Mask Oxygen Flow Rate (L/min): 8 Assessment Airway patent: Yes Spontaneous unlabored respirations: Yes Mental status: Awake and Calm nausea: No Vomiting: No Anesthesia Complication: No Fluid Hydration Crystalloid volume administer (ml): 400 Total IV fluid infused: 400 Progress Note Post-operative progress note: Patient was transported to the ICU. Report given to ICU staff. Patient was HDS on arrival and following commands as well as conversing Anesthesia document: Postop Eval 1 completed: Yes 11/07/242201 > Date _ Raymond Anthony MD Cosigner Signature: Date CC: ~ Signed [facility]10-01-2025 History and physical note [facility] Medical Records Department [address] [place] [address] H&P Exam - Hospitalist 11/07/242012 MR#: [id number] Acct: [id number] Name: ABELARDO IVORY Rep #:[id number] : 1950 74 From: Suzanne Medley MD PCP: Dr. Padmini Carrasco MD Status :[facility] Location: ICU ICU03-1 HPI - General General Date of Admission: 11/07/24 Date of Service: 11/07/24 Chief Complaint: BRBPR, copious. HPI Narrative The patient is a 74 y/o M w/ PMHx: COPD, Bladder Cancer s/p transurethral resection [facility]and [facility], Vavular heart disease status post AVR, CAD status post CABG x 1, CKD stage III unclear subtype per GFR trending, HTN, HLD, Tobacco use,AAA s/p rupture s/p repair who presents to the [facility] ED on 11/07/2024 with significant bright red blood per rectum with his last chemotherapy noted 10/19/2024 in addition to ongoing radiation with last noted 10/22/2024 with significant bright red blood ongoing eventually becoming darker with severe significant ongoing bowel movements foul-smelling in nature with no associated abdominal pain nor any nausea or emesis prompting ED evaluation. Patient did note when he started to have copious bleeding in the ED he did have some mild abdominal cramping. He denies associated lighthe adedness/dizziness/dyspnea/chest pain. He notes chronic dysuria and frequency. Workup in the ED included T96.1 Temporal, heart rate 79, BP 83/63, respiratory rate 18, 97% on room air with BP at 1900 decreasing down to 77/60 and then 78/55 with a MAP of 62 improving following PRBC with most recent [id number], heart rate 78, BP 03/02/1972, respiratory rate 16, 98% oxygenation, CBC with WC 10.8, hemoglobin initially 9.1 at 1555 with repeat at 1757 noted to be hemoglobin 7.8, platelet 229 with leftshift, unremarkable coags, CMP with potassium 5.3 not noted to be hemolyzed, BUN/creatinine 47/2.09, GFR 33, [id number], lactic acid 2.2, hepatic profile not marked appearing, troponin 16, urine noted to be cloudy, urine protein 100, occult blood 50, negative nitrite, leukocyte esterase 500, urine RBCs 5-10, urine WBCs greater than 100 with 2+ urine bacteria, CTA abdomen and pelvis with and without contrast with no active hemorrhaging although patient with significant active bleed in the ED which had been profuse prompting emergent transition to endoscopy for colonoscopy with , also noted mild wall thickening and inflammatory changes involving the proximal duodenum, distal rectosigmoid colon suggestive of enterocolitis, markedwall thickening of the bladder with surrounding inflammatory fat stranding, similar mild left hydroureteronephrosis with evidence of a left urethritis/pyelitis, stable appearing irregular diffuse fusiform aneurysmal dilatation of the infrarenal abdominalaorta and bilateral common iliac arterieswith eccentric noncalcified plaque/mural thrombus, chest x-ray with no acute cardiopulmonary findings however extensive pulmonary emphysema evident. In the EDpatient administered 1 unit PRBC stat given hemorrhagic shock. Patient was evaluated in the endoscopy suite at [facility] on 11/07/2024 and at the time of evaluation, transfer to a tertiary hospital was felt to be in the patient's best interest due to significant lower GI bleed, hemorrhagic shock, high concern for friability of bowel given ongoing and very recent radiation with high risk for rebleeding. Patient had transitioned from the ED to the endoscopy lab for emergent endoscopy given his hemorrhagic shock thus transfer attempts were notinitiated initially in the ED. Discussed case with Dr. Floyd who agreed that transfer even following endoscopy would be inpatient best interest in order to have IR capabilities if necessary and highe rlevel of care with onsite farm operations manager team should patient decompensate again. Given the need for ongoing medical care, in the interim in the best interest of the patient, will proceed with admissionto [facility] ICU following endoscopy and care will be provided here until [email or web address] has an available staffed bed. Pt and/or family are aware of the transfer, the reasoning behind the need for transfer, and that until a staffed bed becomes available, we will provide evidence-based care to the best of our abilities, with the limitations of care here being fully addressed. Discussed this plan ofcare with the patient and the family and did contact per discussion with Dr. Floyd [facility] as initial and they at this time are requesting that they be recontacted once the endoscopy is complete to know better where to place the patient. 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 Intention tremor Carotid stenosis, bilateral Hyperlipidemia Nonrheumatic aortic (valve) stenosis Essential hypertension Tobacco dependence Bilateral inguinal hernia Left carotid bruit Abdominal aortic aneurysm (AAA) Anemia Subcutaneous mass of back PUD (peptic ulcer disease) Cough Arthritis Home Medications ?Medication ?Instructions ?Recorded ?Last Taken ?Type aspirin 81 mg tablet,delayed 81 mg PO DAILY heart heal th 03/02/22 01/12/24 History release rosuvastatin 5 mg tablet (Crestor) 5 mg PO DAILY uzma sterol 03/02/22 03/02/22 History amlodipine 5 mg tablet 5 mg PO DAILY #30 tabs 02/28 Unknown Rx cholecalciferol (vitamin D3) 25 25 mcg PO DAILY Unknown History mcg (1,000 unit) capsule metoprolol tartrate 25 mg tablet 12.5 mg (1/2 x 25 mg) PO BID #90 03/22/24 06/27/24 05:30 Rx tabs acetaminophen 500 mg capsule 1,000 mg PO Q6H PRN pain 06/13/24 Unknown History fluticasone fur. 200 mcg-umeclid 1 inh inhalation RUFINA Y PRN SOB 06/13/24 Unknown History 62.5 mcg-vilant 25 mcg inhalat.powder (Trelegy Ellipta) Allergy/AdvReac Type Severity Reaction Status Date / Time No Known Allergies Allergy Verified 11/07/24 15:31 Family History Sister Asthma Mother Arthritis Diabetes Brother Cancer Unsure what kind- just a lump on his neck Surgical History Neoplasm of bladder Hx of inguinal hernia repair S/P inguinal hernia repair History of cardiac catheterization S/P AAA repair 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) History of left heart catheterization (11/27/18) History of aortic valve replacement (02/12/19) Social History (Updated 11/07/24 @ 20:[address] Suzanne Medley MD) household members: none Smoking Status: Current every day smoker tobacco type: cigarettes Smoking packsper day: 0.25 Smoking cigarettes per day: 5.0 quit status: has quit before alcohol intake: never substance use type: does not use caffeine: Yes Type: coffee Number of servings: 3 what type of physical activity do you participate in: other frequency: 3-4 times per week seatbelt use: always ROS ROS Narrative Admission Review of Systems: CONSTITUTIONAL: No weight loss, fever, chills, + weakness or fatigue. HEENT: Eyes: No visual loss, blurred vision, double vision or yellow sclerae. Ears, Nose, Throat: No hearing loss, sneezing, congestion, runny nose or sore throat. SKIN: No rash or itching, lesions, wounds except + occasional stage ecchymoses, abrasion. CARDIOVASCULAR: No chest pain, chest pressure or chest discomfort, palpitations,edema, orthopnea, syncopal events. RESPIRATORY: No shortness of breath, cough or sputum, wheezing, hemoptysis. GASTROINTESTINAL: + Bright red blood per rectum, copious continued loose stools,mild abdominal cramping. No anorexia, nausea, vomiting or diarrhea, no marked abdominal pain. GENITOURINARY: + Chronic dysuria, frequency. No urgency or retention. NEUROLOGICAL: No headache, dizziness, syncope, paralysis, ataxia, numbness or tingling in the extremities, focal weakness, change in bowel or bladder control,seizure. MUSCULOSKELETAL: + muscle, back pain, joint pain or stiffness. HEMATOLOGIC: + Acute anemia, easy bleeding/bruising. LYMPHATICS: No enlarged nodes. No history of splenectomy. PSYCHIATRIC: No history of depression or anxiety. ENDOCRINOLOGIC: No reports of sweating, cold or heat intolerance. No polyuria orpolydipsia. ALLERGIES: No history of asthma, hives, eczema or rhinitis. Vital Signs Vital Signs Vital Signs: 11/07/24 15:32 11/07/24 15:57 11/07/24 16:35 Temperature 96.1 F L Temperature Source Temporal Pulse Rate 79 79 Respiratory Rate 18 16 Blood Pressure 83/63 L 102/72 132/75 H Blood Pressure Mean 69 82 94 Blood Pressure Source Blood Pressure Position Blood Pressure Location Pulse Ox 97 92 Oxygen Delivery Method Room Air Room Air Oxygen Flow Rate (L/min) 11/07/24 17:00 11/07/24 18:00 11/07/24 18:35 Temperature Temperature Source Pulse Rate 76 110 H 79 Respiratory Rate 30 H 18 Blood Pressure 144/75 H 142/126 H Blood Pressure Mean 98 131 Blood Pressure Source Blood Pressure Position Blood Pressure Location Pulse Ox 99 Oxygen Delivery Method Nasal Cannula Oxygen Flow Rate (L/min) 11/07/24 18:45 11/07/24 18:48 11/07/24 18:54 Temperature 96.6 F L Temperature Source Temporal Pulse Rate 81 77 Respiratory Rate 16 Blood Pressure 128/114 H 77/60 L 78/55 L Blood Pressure Mean 118 65 62 Blood Pressure Source Blood Pressure Position Blood Pressure Location Pulse Ox 92 Oxygen Delivery Method Oxygen Flow Rate (L/min) 11/07/24 19:00 11/07/24 19:00 11/07/24 19:10 Temperature 97.3 F L 97.3 F L 97.3 F L Temperature Source Temporal Temporal Temporal Pulse Rate 76 72 75 Respiratory Rate 22 H 17 20 H Blood Pressure 95/63 112/73 113/71 Blood Pressure Mean 73 86 85 Blood Pressure Source Monitor Blood Pressure Position Blood Pressure Location Pulse Ox 98 97 Oxygen Delivery Method Nasal Cannula Nasal Cannula Oxygen Flow Rate (L/min) 2 11/07/24 19:19 11/07/24 19:37 11/07/24 19:45 Temperature 97.6 F L 97.6 F L Temperature Source Temporal Pulse Rate 74 78 74 Respiratory Rate 16 16 14 Blood Pressure 125/43 H 124/43 H 130/91 H Blood Pressure Mean 70 70 104 Blood Pressure Source Monitor Blood Pressure Position Semi-Fowlers Blood Pressure Location Right Arm Pulse Ox 98 98 100 Oxygen Delivery Method Nasal Cannula Oxygen Flow Rate (L/min) 2 11/07/24 20:10 Temperature 97.6 F L Temperature Source Pulse Rate 78 Respiratory Rate 16 Blood Pressure 124/43 H Blood Pressure Mean Blood Pressure Source Blood Pressure Position Blood Pressure Location Pulse Ox 98 Oxygen Delivery Method Nasal Cannula Oxygen Flow Rate (L/min) 2 Weight Weight: 141 lb 15.643 oz Body Mass Index (BMI) 22.8 Physical Exam Narrative Physical Examination: General: Awake, alert, oriented to self, place and recent events, remains cooperative, laying in the bed in the endoscopy suite, pale appearing, fatigued. Skin: Pale color, normal turgor, no icterus, no cyanosis, occasional stage ecchymoses, abrasion. HEENT: AT/NC, EOMI, PERRLA, moderately dry MM, no carotid bruits or JVD noted. Lungs: Severely diminished, greater bases, mildly increased respiratory rate butno distress, occasional soft end expiratory wheeze, no rales or rhonchi. Heart: Regular rate and rhythm; no gallop, rub audible, status post previous AVR. Abdomen: Soft, NTTP, ND, significant hyperactive BS, no markedly appreciated HSM. Extremities: No cyanosis, no clubbing, no significant distal edema noted. Neurological: Patient awake, alert, oriented as noted, cognitive function currently appears baseline intact; pupils equally reactive to light and accommodation, cranial nerves grossly normal, moving all 4 extremities, no focaldeficits, strength severely globally decreased secondary to acute presenta tion and underlying comorbidities. Psychiatric: Affect appears flat, fatigued, no acute evidence of depressive or anxiety feelings. Results Lab / Micro Data 11/07/24 20:15 11/07/24 15:55 Labs: Laboratory Results - last 24 hr 11/07/24 15:55: WBC 10.8, RBC 3.01 L, Hgb 9.1 L, Hct 29.2 L, MCV 97.0 H, MCH 30.2, MCHC 31.2 L, RDWStd Deviation 55.2 H, RDW Coeff of Manjit 15.6 H, Plt Count 229, MPV 8.9, Immature Gran % (Auto) 0.700, Neut % (Auto) 76.0 H, Lymph % (Auto)11.8 L, [place] % (Auto) 9.8, Eos % (Auto) 1.1, Baso % (Auto) 0.6, Absolute Neuts (auto) 8.2 H, Absolute Lymphs (auto) 1.27, Nucleated RBC % 0, Sodium 141, Potassium5.3 H, Chloride 106, Carbon Dioxide 22.6, Anion Gap 12, BUN 47 H, Creatinine 2.09 H, Est GFR (MDRD)Non-Af 33 L, BUN/Creatinine Ratio 22.4 H, Glucose 139 H, Lactic Acid 2.2 H*, Calcium 8.3, Total Bilirubin 0.15, AST 14, ALT9, Alkaline Phosphatase 68, Total Protein 5.7 L, Albumin 3.3 L, Globulin 2.4, Albumin/Globulin Ratio 1.4, Lipase 43 11/07/24 17:26: Urine Color Straw, Urine Clarity Cloudy, Urine pH 6.0, Ur Specific [place] 1.015, Urine Protein 100 H, Urine Glucose (UA) Normal, Urine Ketones Negative, Urine Occult Blood 50 H, Urine Nitrite Negative, Urine Bilirubin Negative, Urine Urobilinogen Normal, Ur Leukocyte Esterase 500 H, Urine RBC 5-10 SEEN, Urine WBC >100 SEEN, Ur Squamous Epith Cells 0-5 SEEN, Ur Transition EpithCell 0-5 SEEN, Urine Bacteria 2+, Urine Mucus 0 SEEN 11/07/24 17:57: Hgb 7.8 L, Troponin T High Sens 16 11/07/24 18:30: PT 14.5, INR 1.1, APTT 26.5 11/07/24 18:40: Blood Type A POSITIVE, Antibody Screen NEGATIVE, Crossmatch See Detail 11/07/24 18:40: Crossmatch See Detail Micro: Microbiology 11/07/24 15:45 Stool Stool Occult Blood (ASIF) - Final Occult Blood Positive Imaging Radiology Impression Abdomen/Pelvis CTA 11/07/24 15:42 IMPRESSION: 1. No CT evidence for active gastrointestinal hemorrhage. 2. Mild wall thickening and inflammatory changes involving the proximal duodenum, and distal rectosigmoid colon suggestive of enterocolitis. Nonspecific diarrheal illness with fluid in the colon. 3. Marked wall thickening of the bladder with surrounding inflammatory fat stranding, may be infectious/inflammatory or related to known neoplasm. Possibly treatment related change. 4. Similar mild left hydroureteronephrosis. Evidence of left ureteritis/pyelitis. 5. Stable appearance of irregular diffuse fusiform aneurysmal dilatation of the infrarenal abdominal aorta and bilateral common iliac arteries, with eccentric noncalcified plaque/mural thrombus. Reading Location: [facility] Chest X-Ray 11/07/24 18:53 IMPRESSION: No focal consolidation. Extensive pulmonary emphysema. Reading Location: [facility] Assessment & Plan Assessment/Plan (1) GI bleed: (2) Hemorrhagic shock: PLAN: Plan The patient is a 74 y/o M w/ PMHx: COPD, Bladder Cancer s/p transurethral resection on chemotherapyand [facility], Vavular heart disease status post AVR, CAD status post CABG x 1, CKD stage III unclear subtype per GFR trending, HTN, HLD, Tobacco use,AAA s/p rupture s/p repair who presents to the [facility] ED on 11/07/2024 with significant bright red blood per rectum with his last chemotherapy noted 10/19/2024 in addition to ongoing radiation with last noted 10/22/2024 with significant bright red blood ongoing eventually becoming darker with severe significant ongoing bowel movements foul-smelling in nature with no associated abdominal pain nor any nausea or emesis prompting ED evaluation. #1. Acute Hermorrhagic Shock secondary to Acute Lower GI Bleed w/ resultant Acute Blood Loss Anemiawith associated lactic acidosis suspected primary secondary to associated hypovolemia/demand: Patient emergently transitioned to endoscopy given severity of bleeding despite CTA with no acute bleed evidence, continue to have copious blood per rectum with MAP less than 65, given significant history concern for friability of bowel also, in addition to fact this is a lower component may require IR potential thus discussed with gastroenterology and will plan to initiate transfer however in the interim whileawaiting a tertiary facility bed, will admit to the ICU, maintain on telemetry monitoring, continue to cycle H&H, continue PRBC administration initiate per ED,hold all antiplatelet therapy, initiate protonix with ongoing NPO status, continue GI consultation, request farm operations manager involvement while awaiting for tertiary facility transfer. #2. Acute Complicated Urinary Tract Infection with unchanged mild left hydroureteronephrosis with evidence of a left urethritis/pyelitis: UA upon ED evaluation remarkable, pending UCx, continue IVFs,monitor I/Os, continue IV Rocephin given no previous cultures notable w/ transition as able pending sensitivities and speciation. #3. Lactic acidosis: Likely secondary to shock as noted, mildly elevated 2.2, continue treatment asnoted) per facility protocol if remains at [facility] as transfer is pending. #4. Hyperkalemia, mild: Admission potassium 5.3, not markedly elevated, will continue hydration, repeat CMP in AM if remains at [facility] astransfer is pending. #5. Bladder cancer: Patient with transurethral bladder resection 06/27/[address] Winston, following with [facility] oncology on chemotherapy and radiation with last chemotherapy 10/19/2024 and last radiation 10/22/2024, magnesium and phosphorus levels requested, complicates presentation as noted #2,encourage continued follow-up outpatient with oncology and urology as previouslyarranged. #6. Chronic stable appearing in for abdominal aortic aneurysm, fusiform as wellas bilateral common iliac arteries: Patient with noted 12/28/2021 CT abdomen imaging demonstrating at that time 5 cm infrarenal abdominal aortic aneurysm with adjacent retroperitoneal fluid suggesting of aneurysm leak transferred to [facility] undergoing thoracoretroperitoneal for ruptured juxtarenal abdominal aortic aneurysm repair. Noted on CTA, stable appearing, encourage continued follow-up with vascular surgery as previously arranged. #7. Valvular heart disease: Patient with history of aortic stenosis diagnosed in 2012, status post AVR while also having CABG, most recent ECHO 04/29/2023 demonstrated preserved ejection fraction, no regional wall motion abnormalities,aortic valve with peak gradient 25 mmHg and mean valve gradient 13 mmHg. #8. CAD: Status post CABG x 1 with SVG to RCA 02/12/2019 at [facility], additionally at the same time had AVR, temporally holding antiplatelet therapy, hold metoprolol, continue statin therapy. #9. Chronic Kidney Disease Stage III, unclear subtype or GFR trending: Admission BUN/Cr 47/2.09, GFR 33, baseline renal function primarily 1.4-2.6 but is vacillated, most recently 07/09/2024 creatinine1.74, repeat BMP in AM. #10. Hypertension: Given presentation with shock as noted, holding all hypertensive regimen, add back once clinically appropriate. #11. Hyperlipidemia: Will continue patient statin therapy. #12. Tobacco Abuse: Encouraged cessation, inpatient consultation per RT, NR if desired. #13. Chronic COPD: Will temporally hold home inhalers and in the interim we will transition to ATC duonebs, PRN albuterol, HOB, IS parameters. Encourage tobacco cessation. #14. DVT prophylaxis: SCDs. #15. CODE status: Patient HCPOA notes his daughter and son are his HCPOA and living will is currently in place. Discussed CODE status at length including difference between FULL code, DNR-CCA and DNR-CC status. Following discussions about the differences in these status, requested DNR-CCA, no intubation. Clarified also if he should still have a heart beat but had respiratory distressand he noted he would not want to be intubation. He does not want any aggressiveinterventions or procedures. Advanced Care Planning Face to Face Time: 16 minutes. Charges/Coding Visit Charges Inpatient E&M: 68775 Init Hosp L3 Procedures Hospitalists Procedures: 05030 Advncd Care Plan 30 Min 11/07/242052 Cosigner Signature (if applicable): CC: Dr. Suzanne Medley MD; Dr. Padmini Carrasco MD~ Signed ADDENDUM by Dr. Suzanne Medley MD on 11/07/24 at 2146 Addendum Upper and lower scopes performed. Blood in the entire examined colon and also blood in the distal ileum and in the terminal ileum, normal esophagus, red bloodin the entire stomach, spurting duodenal ulcer with a visible vessel with injection/heater probe, widely patent previous surgical anastomosis, characterized by ulceration was found in the duodenum. Contacting [facility] now to initiate transfer. 11/07/242146 Cosigner Signature (if applicable): cc: Dr. Suzanne Medley MD; Dr. Padmini Carrasco MD ~* Signed [facility]10-01-2025 Consult note [facility] Medical Records Department [address] [place] [address] Pre-Anesthesia Evaluation 11/07/242002 MR#: [id number] Acct: [id number] Name: ABELARDO IVORY Rep #:[id number] 17 : 1950 74 From: Raymond Spann PCP: Dr. Padmini Carrasco MD Status :REG SDC Y Race: C Location: [place] [address] ASA Classification* ASA Classification ASA Classification: 4 and E Assessment & Plan Anesthesia* Anesthesia Assessment Anesthesia Assessment: Discussed sedation and/or anesthesia options, risks, benefits, and alternatives with patient/parents/legal guardian/POA. Questions invited. The patient/parents/legal guardian/POA seems to understand and agrees to proceedwith anesthesia plan. Reviewed the physical assessment, medical history, allergy history and patient home medications list prior to surgery/procedure/anesthetic and documented any changes. Performed airway and anesthesia risk assessments. Anesthesia Type Anesthesia Type: MAC History Source History Obtained from:: Patient and Chart Anesthesia Focused Assessment* Temperature: 97.6 F Pulse Rate: 78 Blood Pressure: 124/43 Respiratory Rate: 16 Pulse Ox: 98 Oxygen Delivery Method: Nasal Cannula Oxygen Flow Rate (L/min): 2 Airway Assessment Mouth opens: >3 cm Mallampati Score: III Teeth Condition: Dentures and Upper Labs Anesthesia Preop lab: CBC WBC, (4.4-11.0) 10.8 K/mm3 Today, 15:55 RBC, (4.6-6.2) 3.01 M/mm3 L Today, 15:55 Hgb, (13.0-16.5) 7.8 g/dL L Today, 17:57 Hct, (40-54) 29.2 % L Today, 15:55 Plt Count, (150-450) 229 K/mm3 Today, 15:55 CHEMISTRY Potassium, (3.3-5.1) 5.3 mmol/L H Today, 15:55 Sodium, (133-145) 141 mmol/L Today, 15:55 Magnesium, (1.6-2.6) 1.9 mg/dL 03/03/22, 05:36 Phosphorus, (2.5-4.9) 4.9 mg/dL 03/03/22, 05:36 BUN, (4-19) 47 mg/dL H Today, 15:55 Creatinine, (0.70-1.20) 2.09 mg/dL H Today, 15:55 Glucose, (70-99) 139 mg/dL H Today, 15:55 TSH, (0.300-4.200) 3.680 uIU/mL 05/10/24, 15:16 COAG PT, (11.7-14.9) 14.5 SECONDS Today, 18:30 Pre-Assessment Diagnosis/Proposed Procedure Planned Operative Procedure(s): Colonoscopy Anesthesia History 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 When Was Last Pacemaker Check QUESTION #4 FULL TEXT: You/Your Family Experience fever (hyperthermia) with Anesthesia Last Oral Intake Last Oral intake: Last Oral Intake NPO since Meds taken in AM with sips of water? 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 - welding engineer Female HX of Motion Sickness HX of N/V After Surgery Non-Smoker Duration of Surgery greater than 60 minutes Number of Risk Factors PONV Score Height & Weight Height & Weight: Anesthesia: Height & Weight Height 5 ft 6 in 11/07/24 15:32 Weight: 64.4 kg 11/07/24 18:05 Body Mass Index (BMI) 22.8 11/07/24 18:05 Respiratory Assessment Respiratory Assessment - welding engineer: Respiratory Tract Infection Hx - welding engineer Hx Respiratory Tract Infection No 06/15/24 08:41 STOP Sleep Apnea STOP Sleep Apnea - welding engineer: STOP Sleep Apnea - welding engineer Hx Hypertension Yes: CONTROLLED ON MED 06/15/24 08:41 Hx Sleep Apnea No 06/27/24 15:00 CPAP BIPAP Do you snore loudly (louder than talking or can be heard Do you often feel tired/ fatigued/ sleepy during daytime? Has anyone observed you stop breathing during sleep? STOP Results QUESTION #5 FULL TEXT : Do you snore loudly (louder than talking or can be heard through closeddoors)? 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 Specify any problems Hx of Preganancy in last 3 Months Nurse Filling Out Transfusion & Questions: Date: Time: Patient unable to answer at this time (ie. confused, unrespo /Reproduction History /Reproductive History - welding engineer: /Reproductive Hx- welding engineer Hx Now Gestational Age (in weeks): EDC: Hx Hx Para Hx Section SAB PFSH Medical History Bladder cancer Wears dentures Wears glasses Bruising Easy bruising High cholesterol Smoker Shortness of breath on exertion History of echocardiogram Cardiology follow-up encounter Stage 3b chronic kidney disease (CKD) Thrombocytopenia Chronic kidney insufficiency Pleural effusion Secondary pulmonary arterial hypertension Atherosclerotic heart disease 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 Intention tremor Carotid stenosis, bilateral Hyperlipidemia Nonrheumatic aortic (valve) stenosis Essential hypertension Tobacco dependence Bilateral inguinal hernia Left carotid bruit Abdominal aortic aneurysm (AAA) Anemia Subcutaneous mass of back PUD (peptic ulcer disease) Cough Arthritis Home Medications ?Medication ?Instructions ?Recorded ?Last Taken ?Type aspirin 81 mg tablet,delayed 81 mg PO DAILY heart heal th 03/02/22 01/12/24 History release rosuvastatin 5 mg tablet (Crestor) 5 mg PO DAILY uzma sterol 03/02/22 03/02/22 History amlodipine 5 mg tablet 5 mg PO DAILY #30 tabs 02/28 Unknown Rx cholecalciferol (vitamin D3) 25 25 mcg PO DAILY Unknown History mcg (1,000 unit) capsule metoprolol tartrate 25 mg tablet 12.5 mg (1/2 x 25 mg) PO BID #90 03/22/24 06/27/24 05:30 Rx tabs acetaminophen 500 mg capsule 1,000 mg PO Q6H PRN pain 06/13/24 Unknown History fluticasone fur. 200 mcg-umeclid 1 inh inhalation RUFINA Y PRN SOB 06/13/24 Unknown History 62.5 mcg-vilant 25 mcg inhalat.powder (Trelegy Ellipta) Allergy/AdvReac Type Severity Reaction Status Date / Time No Known Allergies Allergy Verified 11/07/24 15:31 Family History Sister Asthma Mother Arthritis Diabetes Brother Cancer Unsure what kind- just a lump on his neck Surgical History Neoplasm of bladder Hx of inguinal hernia repair S/P inguinal hernia repair History of cardiac catheterization S/P AAA repair 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) History of left heart catheterization (11/27/18) History of aortic valve replacement (02/12/19) Social History household members: none Smoking Status: Current every day smoker tobacco type: cigarettes quit status: has quit before alcohol intake: never substance use type: does not use caffeine: Yes Type: coffee Number of servings: 3 what type of physical activity do you participate in: other frequency: 3-4 times per week seatbelt use: always Prior Cardiac Testing/Procedures Prior Cardiac Testing/Procedures: Echocardiogram (EF 55%. ) Addt'l Information Additional Findings: Cardiology history reviewed reviewed Review of Systems (Anesthesia) ROS Narrative System reviewed and no additional complaints, except as documented. Physical Exam Const alert, oriented x3 and average body habitus Resp normal respiratory effort and normal air movement Auscultation: clear to auscultation bilaterally Cardio regular rate and regular rhythm Back/Spine normal ROM Neuro oriented x3 and moves all extremities 11/07/242013 MD> Date _ Raymond Anthony MD Cosigner Signature: Date CC: ~ Signed [facility]10-01-2025 Consult note [facility] Medical Records Department [address] [place] [address] Consultation - GI 11/07/242005 MR#: [id number] Acct: [id number] Name: ABELARDO IVORY Rep #:[id number] 16 : 1950 74 From: Kamlesh Floyd DO PCP: Dr. Padmini Carrasco MD Status :[facility] Location: [place] [address] HPI Consult Data Date of Consult: 11/07/24 HPI Narrative Reason for Consultation: GI bleed HPI Narrative: ABELARDO IVORY, is a 74 M who presents to the emergency room with multiple episodes of abdominal pain followed by lower GI bleeding. He underwent a transurethral bladder resection on 06/27/[address] Winston for concerns of a bladder mass. [facility] Patient has a history of aortic stenosis diagnosed in 2012. Patient underwent coronary angiography which revealed 80% stenosis in the RCA and patient was referred to [facility] for aortic valve and RCA revascularization. Patient underwent AVR plus CABG x 1 (Perimount #23, SVG to RCA at [facility] on 02/12/2019). Patient did well postoperatively with echocardiogram demonstrating preserved ejection fraction, normally functioning prosthetic aortic valve with peak gradient 25 mmHg and mean gradient of 13 mmHg. Patient was diagnosed with an abdominal aortic aneurysm and was sent to [place] for an opinion. It was noted to [...] of aneurysm leak. Patient was transferred to [facility] facility and on 12/28/2021 patientproceeded with thoracoretroperitoneal ruptured juxtarenal abdominal aortic aneurysm repair. I was called to see him due to the fact that he had multiple episodes of lower GI bleeding. His initial hemoglobin was 9.3. He dropped down to 7.1. He did get transfused 1 unit of packed red blood cells. He had a CT angiography to look at his aortic aneurysm but it did not show any signs of bleeding from the aneurysm. I did show some thickening in his rectosigmoid colon in his duodenum. 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 Intention tremor Carotid stenosis, bilateral Hyperlipidemia Nonrheumatic aortic (valve) stenosis Essential hypertension Tobacco dependence Bilateral inguinal hernia Left carotid bruit Abdominal aortic aneurysm (AAA) Anemia Subcutaneous mass of back PUD (peptic ulcer disease) Cough Arthritis Home Medications ?Medication ?Instructions ?Recorded ?Last Taken ?Type aspirin 81 mg tablet,delayed 81 mg PO DAILY heart heal th 03/02/22 01/12/24 History release rosuvastatin 5 mg tablet (Crestor) 5 mg PO DAILY uzma sterol 03/02/22 03/02/22 History amlodipine 5 mg tablet 5 mg PO DAILY #30 tabs 02/28 Unknown Rx cholecalciferol (vitamin D3) 25 25 mcg PO DAILY Unknown History mcg (1,000 unit) capsule metoprolol tartrate 25 mg tablet 12.5 mg (1/2 x 25 mg) PO BID #90 03/22/24 06/27/24 05:30 Rx tabs acetaminophen 500 mg capsule 1,000 mg PO Q6H PRN pain 06/13/24 Unknown History fluticasone fur. 200 mcg-umeclid 1 inh inhalation RUFINA Y PRN SOB 06/13/24 Unknown History 62.5 mcg-vilant 25 mcg inhalat.powder (Trelegy Ellipta) Allergy/AdvReac Type Severity Reaction Status Date / Time No Known Allergies Allergy Verified 11/07/24 15:31 Family History Sister Asthma Mother Arthritis Diabetes Brother Cancer Unsure what kind- just a lump on his neck Surgical History Neoplasm of bladder Hx of inguinal hernia repair S/P inguinal [...] week seatbelt use: always ROS Constitutional Constitutional: Denies fatigue, fever(s), poor appetite, weight gain or weight loss Gastrointestinal Gastrointestinal: Denies belching, bloating, change in bowel habits, change in stool character, chewing difficulty, coffee ground emesis, constipation, cramping, diarrhea, dyspepsia, dysphagia, earlysatiety, excessive flatus, fecalincontinence, heartburn, hematemesis, hematochezia, hemorrhoids, loose stools, melena, nausea, odynophagia, rectal bleeding, tenesmus, vomiting or weight changes Physical Exam Const alert, oriented x3, no apparent distress and healthy appearing General Appearance: cooperative GI normal to inspection, nondistended, normoactive bowel sounds, soft to palpation,non-tender and non-distended Percussion: normal to percussion Rectal Exam: deferred Lab / Micro Data 11/07/24 17:57 11/07/24 15:55 Labs: Laboratory Results - last 24 hr 11/07/24 15:55: WBC 10.8, RBC 3.01 L, Hgb 9.1 L, Hct 29.2 L, MCV 97.0 H, MCH 30.2, MCHC 31.2 L, RDWStd Deviation 55.2 H, RDW Coeff of Manjit 15.6 H, Plt Count 229, MPV 8.9, Immature Gran % (Auto) 0.700, Neut % (Auto) 76.0 H, Lymph % (Auto)11.8 L, [place] % (Auto) 9.8, Eos % (Auto) 1.1, Baso % (Auto) 0.6, Absolute Neuts (auto) 8.2 H, Absolute Lymphs (auto) 1.27, Nucleated RBC % 0, Sodium 141, Potassium5.3 H, Chloride 106, Carbon Dioxide 22.6, Anion Gap 12, BUN 47 H, Creatinine 2.09 H, Est GFR (MDRD)Non-Af 33 L, BUN/Creatinine Ratio 22.4 H, Glucose 139 H, Lactic Acid 2.2 H*, Calcium 8.3, Total Bilirubin 0.15, AST 14, ALT9, Alkaline Phosphatase 68, Total Protein 5.7 L, Albumin 3.3 L, Globulin 2.4, Albumin/Globulin Ratio 1.4, Lipase 43 11/07/24 17:26: Urine Color Straw, Urine Clarity Cloudy, Urine pH 6.0, Ur Specific [place] 1.015, Urine Protein 100 H, Urine Glucose (UA) Normal, Urine Ketones Negative, Urine Occult Blood 50 H, Urine Nitrite Negative, Urine Bilirubin Negative, Urine Urobilinogen Normal, Ur Leukocyte Esterase 500 H, Urine RBC 5-10 SEEN, Urine WBC >100 SEEN, Ur Squamous Epith Cells 0-5 SEEN, Ur Transition EpithCell 0-5 SEEN, Urine Bacteria 2+, Urine Mucus 0 SEEN 11/07/24 17:57: Hgb 7.8 L, Troponin T High Sens 16 11/07/24 18:30: PT 14.5, INR 1.1, APTT 26.5 11/07/24 18:40: Blood Type A POSITIVE, Antibody Screen NEGATIVE, Crossmatch See Detail 11/07/24 18:40: Crossmatch See Detail Micro: Microbiology 11/07/24 15:45 Stool Stool Occult Blood (ASIF) - Final Occult Blood Positive Imaging Radiology Impression Abdomen/Pelvis CTA 11/07/24 15:42 IMPRESSION: 1. No CT evidence for active gastrointestinal hemorrhage. 2. Mild wall thickening and inflammatory changes involving the proximal duodenum, and distal rectosigmoid colon suggestive of enterocolitis. Nonspecific diarrheal illness with fluid in the colon. 3. Marked wall thickening of the bladder with surrounding inflammatory fat stranding, may be infectious/inflammatory or related to known neoplasm. Possibly treatment related change. 4. Similar mild left hydroureteronephrosis. Evidence of left ureteritis/pyelitis. 5. Stable appearance of irregular diffuse fusiform aneurysmal dilatation of the infrarenal abdominal aorta and bilateral common iliac arteries, with eccentric noncalcified plaque/mural thrombus. Reading Location: [facility] Chest X-Ray 11/07/24 18:53 IMPRESSION: No focal consolidation. Extensive pulmonary emphysema. Reading Location: [facility] Assessment & Plan Assessment/Plan (1) GI bleed: PLAN: Differential diagnosis for the lower GI bleed would be radiation-induced proctitis, diverticular bleed, angiodysplasia, aortic enteric fistula with bleeding. He will undergo colonoscopy and possible upper endoscopy. He was explained alternatives, risk and benefits could not withstand bleeding, infection, sepsis, perforation, need for emergent urgent . He will have anASA of 3. Charges/Coding Visit Charges Inpatient E&M: 25615 Init Hosp L3 11/07/242007 Cosigner Signature (if applicable): CC: Dr. Padmini Carrasco MD; Kamlesh Floyd, ~ Signed [facility]10-01-2025 Radiology Diagnostic study note [facility] Imaging Services [address] [place] [address] Chest 1 View (Portable) MR#: [id number] Acct: [id number] Name: ABELARDO IVORY Rep #: [id number] 50 : 1950 M 74 From: Reema Hurtado MD PCP: Dr. Padmini Carrasco MD Status: REG [facility] Study:Chest 1 View (Portable) Date of Exam: 11/07/24 Exam# [id number] Ordering Dr: Con Curran DO PROCEDURE: CHEST 1 VIEW (PORTABLE) 11/07/2024 REASON FOR EXAM: SOB TECHNIQUE: Frontal view of the chest. COMPARISON: 03/18/2022 FINDINGS: Median sternotomy wire. Left-sided PICC line. Cardiac valve repair. No focal consolidation. Extensive pulmonary emphysema. No pleural effusion or pneumothorax. Cardiac silhouette is within normal limits. Calcified aortic arch. No acute fractures. RAD/Chest 1 View (Portable) IMPRESSION: No focal consolidation. Extensive pulmonary emphysema. Reading Location: [facility] CC: Dr. Con Pena DO; Dr. Padmini Carrasco MD ~ Skiver Heel Tap: Signed [facility]10-01-2025 Radiology Diagnostic study note [facility] Imaging Services [address] [place] [id number] CTA Abd/Pelvis W/WO Contrast MR#: [id number] Acct: [id number] Name: ABELARDO IVORY Rep #: [id number] 47 : 1950 M 74 From: Pio Schofield MD PCP: Dr. Padmini Carrasco MD Status: REG [facility] Study:CTA Abd/Pelvis W/WO Contrast Date of Ex am: 11/07/24 Exam# [id number] Ordering Dr: Con Curran DO PROCEDURE: CTA ABD/PELVIS W/WO CONTRAST 11/07/2024 REASON FOR EXAM: GI BLEED; known bladder cancer with chemo radiation treatment. TECHNIQUE: Procedure Code: [id number] Modality: CT Procedure: CTA ABD/PELVIS W/WO CONTRAST Multiplanar Sagittal and Coronal images were obtained. 3D/MIP post processing was performed. CONTRAST: Isovue 370 VOLUME: 93 mL One or more dose reduction techniques were used (e.g., Automated exposure control, adjustment of the mA and/or kV according to patient size, use of iterative reconstruction technique). RADIATION DOSE SUMMARY: DLP: 643.16 mGycm COMPARISON: Abdominal CTs 06/21/2024, 05/16/2024. FINDINGS: LUNG BASES: Clear. 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 HEPATOBILIARY: No significant abnormality. Multiple small calcified granulomas scattered throughoutthe liver and spleen. No biliary ductal dilatation. GENITOURINARY: Marked circumferential thickening of the urinary bladder, with pericystic inflammatory fat stranding. Similar mild left hydroureteronephrosis. Left urothelial enhancement compatible with ureteritis/pyelitis. Symmetric nephrograms without evidence for pyelonephritis. Nonenlarged prostate. GI TRACT: No evidence of obstruction. Normal appendix. Mild wall thickening/fatstranding along the proximal duodenum, may represent mild duodenitis. Mild wall thickening of the distal rectosigmoid colon, and fluid throughout the colon suggesting colitis with nonspecific diarrheal illness. No intraluminal hyperdense materialor active arterial contrast extravasation on the early arterial or delayed phase images to indicate active gastrointestinal hemorrhage. PERITONEUM/RETROPERITONEUM: No ascites or free air. No suspicious lymph node enlargement. Multiple shotty subcentimeter periaortic lymph nodes are nonspecific. MUSCULOSKELETAL: No acute abnormality. Multilevel degenerative changes of the spine. CT/CTA Abd/Pelvis W/WO Contrast IMPRESSION: 1. No CT evidence for active gastrointestinal hemorrhage. 2. Mild wall thickening and inflammatory changes involving the proximal duodenum, and distal rectosigmoid colon suggestive of enterocolitis. Nonspecific diarrheal illness with fluid in the colon. 3. Marked wall thickening of the bladder with surrounding inflammatory fat stranding, may be infectious/inflammatory or related to known neoplasm. Possibly treatment related change. 4. Similar mild left hydroureteronephrosis. Evidence of left ureteritis/pyelitis. 5. Stable appearance of irregular diffuse fusiform aneurysmal dilatation of the infrarenal abdominal aorta and bilateral common iliac arteries, with eccentric noncalcified plaque/mural thrombus. Reading Location: [facility] CC: Dr. Con Pena DO; Dr. Padmini Carrasco MD ~ [employer]: Signed [facility]10-01-2025 Hospital Discharge instructionsAdditional Instructions [facility]: [facility] Phone: [phone]) 566-834409-15-2025 NoteHNO ID: [id number] Author: UNRULY DIAZ RN Service: ? Author [...] ONCOLOGY Time spent on patient education: 05 minutes.[facility]09-15-2025 History of Present illness Narrative* Unruly Diaz RN - 10/22/2024 10:05 AM EDT AMBULATORY PATIENT EDUCATION NOTE TOPIC: SURVIVAL SKILLS: [...] / FAMILY RESPONSE: Verbalizes understanding of: SYMPTOM MANAGEMENT- Correct actions to take to manage symptoms associated [...] patient education: 05 minutes. documented in this encounterCleveland [facility]09-15-2025 NoteHNO ID: [id number] Author: LUIGI BANKS MD Service: Radiation Oncology Author Type: Physician Type: Progress Notes Filed: 10/30/2024 10:25 Note Text: ABELARDO IVORY [id number] 10/22/2024 [facility] Department of Radiation Oncology [facility] RADIATION ONCOLOGY: COMPLETION NOTE DATE OF SIMULATION: 09/07/2024 DATES OF TREATMENT: 09/24/2024 to 10/22/2024 UNIT: W_TRUEBE AREA TREATED: Bladder/prostate DISEASE: Clinical stage II, [...] 0:25 AM Electronically Signed cc: Padmini Carrasco ([facility]) [address] [place] [address] Lakeisha Dawkins [address] [facility] [address] NoteEducation (GABRIELTWS) ABELARDO IVORY ([id number]) 1950 M Date Time Provider Department 10/22/24 LUIGI BANKS Reason for Visit: Patient Education [91] Cmt: Discharge teaching-completed radiation During your visit today, we recorded the following information about you: Allergies As of Date: 10/22/2024 (No Known Allergies) Date Reviewed: 10/16/2024 Reviewed by: Nighat Hines, RN - Fully Assessed Prescriptions as of 10/22/2024 [...] 5 mg by mouth once daily. - tqousdrciex-jlgjvenih-wzglirzr (TRELEGY ELLIPTA) 200-62.5-25 mcg inhalation powder Inhale [...] hours. Encounter Status:Closed by UNRULY DIAZ on 10/22/24[facility] 10-16-2024 History of Present illness Narrative* Nighat Hines RN - 10/16/2024 10:15 AM EDT Radiation Therapy - Nursing Note (OTV) PATIENT NAME: Abelardo Ivory PATIENT October 16, 2024 [facility] FACILITY/LOCATION: [place] NURSING NOTE TYPE: PROSTATE - MALE PELVIS Subjective Data No concerns voiced Additional Data Do you want to see a Conciliation Court Judge? No Status: Patient is male Stress Scale: On a scale of 0 to 10, what number best describes how much distress you have experienced in the past week?(0 being no distress and 10 being extreme distress) 1 Social work notified: Pt denied need to see social worker clinical at this time. Nursing Assessment Fatigue: increased [...] Bladder function: no problems. Urinary frequency (D/N): [id number]. SIGNED by: Nighat Hines RN * Luigi Banks MD - 10/16/2024 9:56 AM EDT Radiation Oncology - On Treatment Review (OTR) [...] planned. Luigi Banks MD documented in this encounterCleveland [facility]09-09-2025 NoteHNO ID: [id number] Author: NIGHAT HINES RN Service: ? Author Type: Registered Nurse Type: Progress Notes Filed: 10/16/2024 10:15 Note Text: Radiation Therapy - Nursing Note (OTV) PATIENT NAME: Abelardo Ivory PATIENT October 16, 2024 [facility] FACILITY/LOCATION: [place] NURSING NOTE TYPE: PROSTATE - MALE PELVIS Subjective Data No concerns voiced Additional Data Do you want to see a Conciliation Court Judge? No Status: Patient is male Stress Scale: On a scale of 0 to 10, what number best describes how much distress you have experienced in the past week?(0 being no distress and 10 being extreme distress) 1 Social work notified: Pt denied need to see social worker clinical at this time. Nursing Assessment Fatigue: increased [...] Bladder function: no problems. Urinary frequency (D/N): [id number]/2-3. SIGNED by: Nighat Hines [facility]09-09-2025 NoteHNO ID: [id number] Author: LUIGI BANKS MD Service: ? Author [...] Continue radiation treatment as planned. Luigi Banks [facility]09-05-2025 History of Present illness Narrative* Bob Otero - 10/12/2024 11:30 AM EDT Abelardo Ivory 1950 10/12/2024 Patient self-referred for muscle invasive bladder cancer. HPI: The patient is a 74-year-old male with a past medical history as outlined below. Developed gross hematuria and noticed debris in urine. Saw Dr. Winston. Had TURBT with chemo flush. Path below. Referred to [facility] b/c patient declined cystectomy. Per Dr. [...] ppd since age 15 years Pathology from [facility] reviewed at [facility]: A. Urinary bladder, transurethral resection: - [...] cough. Clear sputum. Sees Dr. Zuñiga at [facility]. Smokes about 1/2 ppd. No alcohol. [...] Take 5 mg by mouth once daily. mjbaiijkdql-wgcsoasvx-ukwrkdrg (TRELEGY ELLIPTA) 200-62.5-25 mcg inhalation powder Inhale 1 puff asinstructed once daily. acetaminophen (TYLENOL) 325 mg tablet [...] use: No Drug use: No Worked for [employer]. [employer]. FAMILY HISTORY Problem Relation Age of Onset [...] with any questions or concerns. Bob Otero APRN.PATTERNMAKER HAND I spent a total of 30 minutes on the date of the service which included preparing to see the patient, eypg-ik-xpyq patient care, completing clinical documentation, obtaining and/or [...] evaluation of this patient. documented in this encounterCleveland Clinic [facility]09-05-2025 NoteHNO ID: [id number] Author: BOB OTERO, ? Service: ? Author Type: Nurse Practitioner Type: Progress Notes Filed: 10/12/2024 12:41 Note Text: Abelardo Ivory 1950 10/12/2024 Patient self-referred for muscle invasive bladder cancer. HPI: The patient is a 74-year-old male with a past medical history as outlined below. Developed gross hematuria and noticed debris in urine. Saw Dr. Winston. Had TURBT with chemo flush. Path below. Referred to [facility] b/c patient declined cystectomy. Per Dr. [...] ppd since age 15 years Pathology from [facility] reviewed at main campus: A. Urinary [...] cough. Clear sputum. Sees Dr. Zuñiga at [facility]. Smokes about 1/2 ppd. No alcohol. [...] Take 5 mg by mouth once daily. 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 [facility]09-02-2025 NoteHNO ID: [id number] Author: LUIGI BANKS MD Service: ? Author [...] expected parameters. Continue radiation treatment as planned. [facility] History of Present illness Narrative* Luigi Banks MD - 10/09/2024 9:57 AM EDT Radiation Oncology - On Treatment Review (OTR) [...] radiation treatment as planned. Luigi Banks MD * Shreya Souza RN - 10/09/2024 9:46 AM EDT Radiation Therapy - Nursing Note (OTV) PATIENT NAME: Abelardo Ivory PATIENT October 09, 2024 [facility] FACILITY/LOCATION: [place] NURSING NOTE TYPE: PROSTATE - MALE PELVIS Subjective Data Pt states his pain is much in better, not taking pain meds much at this time Additional Data Do you want to see a Conciliation Court Judge? No Status: Patient is male Stress Scale: On a scale of 0 to 10, what number best describes how much distress you have experienced in the past week?(0 being no distress and 10 being extreme distress) 1 Social work notified: Pt denied need to see social worker clinical at this time. Nursing Assessment Fatigue: increased [...] pain is much improved SIGNED by: Shreya Souza RN documented in this encounterCleveland Clinic [facility]09-02-2025 NoteHNO ID: [id number] Author: SHREYA SOUZA RN Service: ? Author Type: Registered Nurse Type: Progress Notes Filed: 10/09/2024 10:02 Note Text: Radiation Therapy - Nursing Note (OTV) PATIENT NAME: Abelardo Ivory PATIENT October 09, 2024 [facility] FACILITY/LOCATION: [facility] NOTE TYPE: PROSTATE - MALE PELVIS Subjective Data Pt states his pain is much in better, not taking pain meds much at this time Additional Data Do you want to see a Conciliation Court Judge? No Status: Patient is male Stress Scale: On a scale of 0 to 10, what number best describes how much distress you have experienced in the past week?(0 being no distress and 10 being extreme distress) 1 Social work notified: Pt denied need to see social worker clinical at this time. Nursing Assessment Fatigue: increased [...] pain is much improved SIGNED by: Shreya Souza [facility]08-26-2025 NoteHNO ID: [id number] Author: LUIGI BANKS MD Service: ? Author [...] Continue radiation treatment as planned. Luigi Banks [facility]08-26-2025 NoteHNO ID: [id number] Author: UNRULY DIAZ RN Service: ? Author Type: Registered Nurse Type: Progress Notes Filed: 10/02/2024 10:20 Note Text: Radiation Therapy - Nursing Note (OTV) PATIENT NAME: Abelardo Ivory PATIENT October 02, 2024 [facility] FACILITY/LOCATION: [facility] NOTE TYPE: PROSTATE - MALE PELVIS Subjective Data No complaints Additional Data Do you want to see a Conciliation Court Judge? No Status: Patient is male Stress Scale: [...] frequency (D/N): same/same. SIGNED by: Unruly Diaz [facility]08-26-2025 History of Present illness Narrative* Luigi Banks MD - 10/02/2024 10:11 AM EDT Radiation Oncology - On Treatment Review (OTR) [...] radiation treatment as planned. Luigi Banks MD * Unruly Diaz RN - 10/02/2024 10:11 AM EDT Radiation Therapy - Nursing Note (OTV) PATIENT NAME: Abelardo Ivory PATIENT October 02, 2024 [facility] FACILITY/LOCATION: [facility] NOTE TYPE: PROSTATE - MALE PELVIS Subjective Data No complaints Additional Data Do you want to see a Conciliation Court Judge? No Status: Patient is male Stress Scale: [...] by: Unruly Diaz RN documented in this encounterCleveland Clinic [facility]08-19-2025 Telephone encounter Note * Telephone Encounter - Wolf Crane RN - 09/25/2024 2:09 PM EDT Call to patient, aware the Tramadol Rx [...] he understands and denies further needs/concerns. Nazanin Crane, RN [facility]08-19-2025 Miscellaneous Notes* Telephone Encounter - Wolf Crane RN - 09/25/2024 2:09 PM EDT Call to patient, aware the Tramadol Rx [...] he understands and denies further needs/concerns. Nazanin Crane RN * Telephone Encounter - Hermila Morse LPN - 09/25/2024 1:37 PM EDT Will make rad/onc nurse know as well. Has radiation tx tomorrow. Hermila Morse LPN * Telephone Encounter - Lakeisha Dawkins DO - 09/25/2024 1:22 PM EDT He will have to sign a narcotic agreement form when he is here tomorrow. I will have one ready for him to sign. Lakeisha Dawkins DO * Telephone Encounter - Wolf Crane RN - 09/25/2024 10:15 AM EDT CYCLE 1/DAY 1 POST TREATMENT CALL Today's date: September 25, 2024 Treatment Regimen: 5FU/Mitomycin w/XRT C1D1 Date: 09/24/24 Patient in follow up with Dr. Banks. Needs refill on Tramadol. Requested Prescriptions Pending Prescriptions Disp Refills traMADol (ULTRAM) 50 mg tablet 14 tablet 0 Sig: Take 1 tablet by mouth every 12 hours as needed for pain for up to 7 days. Wolf Crane RN documented in this encounterCleveland Clinic [facility]08-19-2025 Telephone encounter Note * Telephone Encounter - Hermila Morse LPN - 09/25/2024 1:37 PM EDT Will make rad/onc nurse know as well. Has radiation tx tomorrow. Hermila Morse LPN [facility]08-19-2025 Telephone encounter Note* Telephone Encounter - Lakeisha Dawkins DO - 09/25/2024 1:22 PM EDT He will have to sign a narcotic agreement form when he is here tomorrow. I will have one ready for him to sign. Lakeisha Dawkins DO [facility]08-19-2025 Telephone encounter Note* Telephone Encounter - Wolf Crane RN - 09/25/2024 10:15 AM EDT CYCLE 1/DAY 1 POST TREATMENT CALL Today's date: September 25, 2024 Treatment Regimen: 5FU/Mitomycin w/XRT C1D1 Date: 09/24/24 Patient in follow up with Dr. Banks. Needs refill on Tramadol. Requested Prescriptions Pending Prescriptions Disp Refills traMADol (ULTRAM) 50 mg tablet 14 tablet 0 Sig: Take 1 tablet by mouth every 12 hours as needed for pain for up to 7 days. Wolf Crane RN [facility]08-19-2025 NoteHNO ID: [id number] Author: LUIGI BANKS MD Service: ? Author [...] Continue radiation treatment as planned. Luigi Banks [facility]08-19-[facility] History of Present illness Narrative* Luigi Banks MD - 09/25/2024 10:15 AM EDT Radiation Oncology - On Treatment Review (OTR) [...] specific new complaints related to radiation treatment. Hehas bladder pain since his TURBT without significant acute changes. Previous urine culture was negative for UTI. EXAM: KPS: 90 General Appearance: Alert and oriented. No acute distress. IMAGING/LAB RESULTS: None Treatment chart checked: Yes Patient treatment site reviewed and verified:Yes CBCTs reviewed and current:Yes Medications started: None ASSESSMENT/PLAN: Clinically stable. No significant treatment-related side effects. Continue radiation treatment as planned. Luigi Banks MD * Shreya Souza RN - 09/25/2024 10:13 AM EDT Radiation Therapy - Nursing Note (OTV) PATIENT NAME: Abelardo Ivory PATIENT September 25, 2024 [facility] FACILITY/LOCATION: [facility] NOTE TYPE: PROSTATE - MALE PELVIS Subjective Data I am still having that pain when I urinated and sometimes just hits gideon Additional Data Do you want to see a Conciliation Court Judge? No Status: Patient is male Stress Scale: On a scale of 0 to 10, what number best describes how much distress you have experienced in the past week?(0 being no distress and 10 being extreme distress) 2 Social work notified: Pt denied need to see social worker clinical at this time. Nursing Assessment Fatigue: increased [...] hours/up twice at night. SIGNED by: Shreya Souza RN documented in this encounterCleveland [id number] NoteHNO ID: [id number] Author: SHREYA SOUZA RN Service: ? Author Type: Registered Nurse Type: Progress Notes Filed: 09/25/2024 10:39 Note Text: Radiation Therapy - Nursing Note (OTV) PATIENT NAME: Abelardo Ivory PATIENT September 25, 2024 [facility] FACILITY/LOCATION: [facility] NOTE TYPE: PROSTATE - MALE PELVIS Subjective Data I am still having that pain when I urinated and sometimes just hits gideon Additional Data Do you want to see a Conciliation Court Judge? No Status: Patient is male Stress Scale: On a scale of 0 to 10, what number best describes how much distress you have experienced in the past week?(0 being no distress and 10 being extreme distress) 2 Social work notified: Pt denied need to see social worker clinical at this time. Nursing Assessment Fatigue: increased [...] hours/up twice at night. SIGNED by: Shreya Souza [facility]08-18-2025 Telephone encounter Note* Telephone Encounter - Leonardo Downey - 09/24/2024 11:56 AM EDT This has been scheduled. Leonardo Downey [facility]08-18-2025 Miscellaneous Notes* Telephone Encounter - Leonardo Downey - 09/24/2024 11:56 AM EDT This has been scheduled. Leonardo Downey * Telephone Encounter - Shawna Prakash RN - 09/24/2024 11:[address] Dawkins, Schedule him for BMP with possible hydration this coming . Pt will be in for radiation at 0900. Please schedule for port/picc draw and possible hydration. Thank you. documented in this encounterCleveland Clinic [facility]08-18-2025 Telephone encounter Note * Telephone Encounter - Shawna Prakash RN - 09/24/2024 11:[address] Dawkins, Schedule him for BMP with possible hydration this coming . Pt will be in for radiation at 0900. Please schedule for port/picc draw and possible hydration. Thank you. [facility]08-18-2025 Telephone encounter Note* Telephone Encounter - Shawna Prakash RN - 09/24/2024 11:18 AM EDT error [facility]08-18-2025 Miscellaneous Notes* Telephone Encounter - Shawna Prakash RN - 09/24/2024 11:18 AM EDT error documented in this encounterCleveland Clinic [facility]08-12-2025 History of Present illness Narrative* Reef Samina Avery, RT(R) - 09/18/2024 9:00 AM EDT Radiology Service Progress Note PATIENT NAME: Abelardo Ivory DATE OF SERVICE: September 18, 2024 TIME: 1:46 PM PATIENT IDENTITY VERIFICATION COMPLETED USING TWO (2) IDENTIFIERS: Name and Date of confirmedby patient verbally. FALL SCREENING: Has the patient had 2 falls in the last year or 1 fall with injury or currently using an Ambulatory Assistive Device (Walker, Cane, Wheelchair, Crutches, etc.)? No PATIENT GENDER DATA: Assigned male at PATIENT RELEVANT IMPLANT DATA REVIEWED: Yes PATIENT PRESENTS WITH AN IMPLANTABLE OR ATTACHED DRENCHER: No RADIOLOGY DEPARTMENT: CT; Exam(s) Completed: Abdomen/Pelvis PERIPHERAL IV DATA: Not applicable SIGNED BY: RT Lenin(Manoj) September 18, 2024 1:46 PM documented in this encounterCleveland Clinic [facility]08-12-2025 NoteHNO ID: [id number] Author: SAMINA NUNEZ RT(Manoj) Service: ? Author Type: Manufacturing Plant Technician Type: Progress Notes Filed: 09/18/2024 13:47 [...] PATIENT PRESENTS WITH AN IMPLANTABLE OR ATTACHED DRENCHER: No RADIOLOGY DEPARTMENT: CT; Exam(s) Completed: Abdomen/Pelvis PERIPHERAL IV DATA: Not applicable SIGNED BY: RT Lenin(R) September 18, 2024 1:46 [facility]08-06-2025 NoteHNO ID: [id number] Author: MATTHEW GU RN Service: ? Author Type: Registered Nurse Type: Progress Notes Filed: 09/12/2024 16:33 Note Text: This visit was completed by phone. Hands Hanger Pre Chemo Patient identified by name and date of . YES Confirmed date and time for chemotherapy ? YES Other appointments (labs, imaging) discussed? 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 FALL SCREENING: Has the patient had 2 falls in the last year or 1 fall with injury or currently using an Ambulatory Assistive Device (Walker, Cane, Wheelchair, Crutches, etc.)? No PATIENT GENDER DATA: Assigned male at PATIENT RELEVANT IMPLANT DATA REVIEWED: Not Applicable PATIENT PRESENTS WITH AN IMPLANTABLE OR ATTACHED DRENCHER: No RADIOLOGY DEPARTMENT: Ultrasound PERIPHERAL IV DATA: Not applicable SIGNED BY: Sydni Chung RDMS RVT September 07, 2024 2:59 PM documented in this encounterCleveland Clinic [facility]08-01-2025 NoteHNO ID: [id number] Author: SYDNI CHUNG RDMS Service: ? Author Type: Car Conditioner Type: Progress Notes Filed: 09/07/2024 14:59 Note [...] PATIENT PRESENTS WITH AN IMPLANTABLE OR ATTACHED DRENCHER: No RADIOLOGY DEPARTMENT: Ultrasound PERIPHERAL IV DATA: Not applicable SIGNED BY: Sydni Chung RDMS RVT September 07, 2024 2:59 [facility]08-01-2025 NoteHNO ID: [id number] Author: UNRULY DIAZ RN Service: ? Author Type: Registered Nurse Type: Progress Notes Filed: 09/07/2024 10:59 Note Text: Radiation Therapy - Patient Education Note PATIENT NAME: Abelardo Ivory PATIENT September 07, 2024 [facility] FACILITY/LOCATION: [place] READINESS TO LEARN Cognitive Ability: Alert and [...] phone list, Bladder function, Diarrhea, Fatigue, and [place] instructions, XRT sheet and Aquaphor handout. Referral (recommendation): None, Pt denied need for social work, van service, and fish trapper. Patient has an Onbody or Implanted device: No Signed by: Unruly Diaz [facility]08-01-2025 History of Present illness Narrative* Unruly Diaz RN - 09/07/2024 10:57 AM EDT Radiation Therapy - Patient Education Note PATIENT NAME: Abelardo Ivory PATIENT September 07, 2024 [facility] FACILITY/LOCATION: [place] READINESS TO LEARN Cognitive Ability: Alert and [...] handouts on Department phone list, Bladder function, Diarrhea,Fatigue, and [place] instructions, XRT sheet and Aquaphor handout. Referral (recommendation): None, Pt denied need for social work, van service, and fish trapper. Patient has an Onbody or Implanted device: No Signed by: Unruly Diaz RN documented in this encounterCleveland Clinic [facility]08-01-2025 History of Present illness Narrative* Luigi Banks MD - 09/07/2024 12:00 AM EDT ABELARDO VIORY [id number] 09/07/2024 [facility] Department of Radiation Oncology [facility] RADIATION ONCOLOGY SIMULATION NOTE DATE OF SIMULATION: 09/07/2024 MACHINE: [employer] Definition CT Simulator Diagnosis: Clinical stage II, [...] a verification simulation on the treatment machine toensure proper set-up and field arrangement is correct prior to the first treatment of primary and boost canela if applicable. Electronically Signed Luigi Banks M.D./jase 51:56 PM documented in this encounterCleveland Clinic [facility]08-01-2025 History of Present illness Narrative* Luigi Banks MD - 09/07/2024 12:00 AM EDT ABELAROD IVORY [id number] 09/07/2024 [facility] [place] [facility] - Department of Radiation Oncology Treatment Planning Note For reasons stated in the consult note, Abelardo Ivory is a candidate for radiation therapy. Based on review and interpretation of the relevant diagnostic studies together with the exam findings, Abelardo Ivory was simulated on 09/07/2024 at which time the target volume and/or requisite canela were del ineated, as indicated in the simulation note, to [...] using conventional or 3D planning. The specific doserequirements for the PTV, organs at risk and dose-volume histograms are contained in this treatmentplan and/or elsewhere in the medical record. A completed summary of this plan dated 09/18/2024 incorporated herein by reference includes dose, beam arrangements, energy, blocking, isodose distribution, and/or ports and DVH. Electronically Signed Luigi Banks M.D. 52:21 PM documented in this encounterCleveland Clinic [facility]08-01-2025 NoteHNO ID: [id number] Author: LUIGI BANKS MD Service: Radiation Oncology Author Type: Physician Type: Progress Notes Filed: 09/18/2024 14:21 Note Text: ABELARDO IVORY [id number] 09/07/2024 [facility] - Department of Radiation Oncology Treatment Planning [...] DVH. Electronically Signed Luigi Banks M.D. 52:21 [facility]08-01-2025 NoteHNO ID: [id number] Author: LUIGI BANKS MD Service: Radiation Oncology Author Type: Physician Type: Progress Notes Filed: 09/14/2024 13:56 Note Text: ABELARDO IVORY [id number] 09/07/2024 [facility] Department of Radiation Oncology [facility] RADIATION ONCOLOGY SIMULATION NOTE DATE OF SIMULATION: [...] applicable. Electronically Signed Luigi Banks M.D./jase 51:56 [facility]07-31-2025 Telephone encounter Note* Telephone Encounter - Elizabeth Ludwig LPN - 09/06/2024 12:21 PM EDT See routing comment below. I will take care of the PICC line when appropriate to schedule. The IR order that's in is for a nephrostomy tube. Elizabeth Ludwig LPN [facility]07-31-2025 Miscellaneous Notes* Telephone Encounter - Elizabeth Ludwig LPN - 09/06/2024 12:21 PM EDT See routing comment below. I will take care of the PICC line when appropriate to schedule. The IR order that's in is for a nephrostomy tube. Elizabeth Ludwig LPN * Telephone Encounter - Megha Knight - 09/06/2024 12:14 PM EDT Received call from [facility] stating they are unable to insert picc with order placed. She states they need a Tunneled Picc ordered and [facility] IR would schedule that procedure. * Telephone Encounter - Stacy Gauthier MD - 09/06/2024 9:50 AM EDT Absolutely- will add antegrade stent to procedure if IR is able Stacy Gauthier MD * Telephone Encounter - Chelsea Gutierres - 09/06/2024 8:49 AM EDT Scheduled US for 09/07 PICC LINE 09/10 @ 10 [place] Chelsea Gutierres * Telephone Encounter - Lakeisha Dawkins DO - 09/05/2024 5:31 PM EDT Lab results from today show significant elevation of serum creatinine and BUN. Ultrasound stat. Also scheduled for potential nephrostomy tube placement at [place] or [place]. * Telephone Encounter - Leonardo Downey - 09/05/2024 3:28 PM EDT AVS 09/05 Labs today. done Referral to [...] in about 8 weeks. [facility] Telephone encounter Note * Telephone Encounter - Megha Knight - 09/06/2024 12:14 PM EDT Received call from [facility] stating they are unable to insert picc with order placed. She states they need a Tunneled Picc ordered and [facility] IR would schedule that procedure. [facility] Work Phone: 1(389) 294-812207-31-2025 NoteHNO ID: [id number] Author: LUIGI BANKS MD Service: ? Author Type: Physician Type: Progress Notes Filed: 09/14/2024 11:12 Note Text: Radiation Oncology - New Patient/Consult Note PATIENT NAME: Abelardo Ivory PATIENT REQUESTING PROVIDER: Dr. Lakeisha Dawkins DIAGNOSIS: Clinical stage II, cT2 cN0, high [...] Take 5 mg by mouth once daily. wxdxkbnvwgu-mopznvnuw-ujokclrd (TRELEGY ELLIPTA) 200-62.5-25 mcg inhalation powder Inhale [...] negative for prolonged bleedin (more content not included)...[facility]07-31-2025 NoteHNO ID: [id number] Author: UNRULY DIAZ RN Service: ? Author Type: Registered Nurse Type: Progress Notes Filed: 09/14/2024 11:12 Note Text: Radiation Therapy - Nursing Note (Consult) PATIENT NAME: Abelardo Ivory PATIENT September 06, 2024 [facility] FACILITY/LOCATION: [place] Chief Complaint: consult Reason for visit: Consult. Referring physician: Internal provider Dr Dawkins Subjective Data: see pain assessment Additional Data Do you want to see a Conciliation Court Judge? No Are you interested in information about fertility? No Status: Patient is male Stress Scale: On a scale of 0 to 10, what number best describes how much distress you have experienced in the past week?(0 being no distress and 10 being extreme distress) 3 Social work notified: no SIGNED by: Unruly Diaz [facility] Telephone encounter Note* Telephone Encounter - Stacy Gauthier MD - 09/06/2024 9:50 AM EDT Absolutely- will add antegrade stent to procedure if IR is able Stacy Gauthier MD [facility] Work Phone: 1(338) 294-347607-31-2025 Telephone encounter Note* Telephone Encounter - Earnestine Burch - 09/06/2024 9:11 AM EDT Spoke with Dr. Dawkins office and they stated for you to send message to dr. Dawkins and have him add it on to his order and they will be sure it gets scheduled. Earnestine Bass [facility]07-31-2025 Miscellaneous Notes* Telephone Encounter - Earnestine Burch - 09/06/2024 9:11 AM EDT Spoke with Dr. Dawkins office and they stated for you to send message to dr. Dawkins and have him add it on to his order and they will be sure it gets scheduled. Earnestine Bass * Telephone Encounter - Stacy Gauthier MD - 09/06/2024 7:[address] Dawkins ordered a left perc tube placement- can you find out where he's having it done, want to add on left antegrade stent placement at same time- thx Stacy Gauthier MD documented in this encounterC[facility]07-[facility] Telephone encounter Note * Telephone Encounter - Chelsea Gutierres - 09/06/2024 8:49 AM EDT Scheduled US for 09/07 PICC LINE 8/4 @ [address] [place] Chelsea Gutierres [facility]07-31-2025 Telephone encounter Note* Telephone Encounter - Stacy Gauthier MD - 09/06/2024 7:[address] Dawkins ordered a left perc tube placement- can you find out where he's having it done, want to add on left antegrade stent placement at same time- thx Stacy Gauthier MD [facility] Work Phone: 1(492) 197-851107-30-2025 Telephone encounter Note* Telephone Encounter - Lakeisha Dawkins DO - 09/05/2024 5:31 PM EDT Lab results from today show significant elevation of serum creatinine and BUN. Ultrasound stat. Also scheduled for potential nephrostomy tube placement at [place] or [place]. [facility]07-30-2025 Telephone encounter Note* Telephone Encounter - Matthew Gu RN - 09/05/2024 3:45 PM EDT Met with patient and introduced myself. Patient was given a My Journey binder with chemocare information, office contact information, thermometer, and additional chemotherapy resource booklets. Patient aware this nurse will review on scheduled appointment date. Matthew Gu RN [facility]07-30-2025 Miscellaneous Notes* Telephone Encounter - Matthew Gu RN - 09/05/2024 3:45 PM EDT Met with patient and introduced myself. Patient was given a My Journey binder with chemocare information, office contact information, thermometer, and additional chemotherapy resource booklets. Patient aware this nurse will review on scheduled appointment date. Matthew Gu RN documented in this encounterC[facility]07-30-2025 Telephone encounter Note * Telephone Encounter - Leonardo Downey - 09/05/2024 3:28 PM EDT AVS 09/05 Labs today. done Referral to [...] OV with me in about 8 weeks. [facility]07-30-2025 NoteHNO ID: [id number] Author: LAKEISHA DAWKINS, DO Service: ? Author Type: Physician Type: Progress Notes Filed: 09/05/2024 17:01 Note Text: Patient self-referred for muscle invasive bladder cancer. HPI: The patient is a 74-year-old male with a past medical history as outlined below. Developed gross hematuria and noticed debris in urine. Saw Dr. Winston. Had TURBT with chemo flush. Path below. Referred to [facility] b/c patient declined cystectomy. Per Dr. [...] ppd since age 15 years Pathology from [facility] reviewed at [facility]: A. Urinary bladder, transurethral resection: - [...] cough. Clear sputum. Sees Dr. Zuñiga at [facility]. Smokes about 1/2 ppd. No alcohol. [...] Take 5 mg by mouth once daily. syhnxdeonwr-bwvnqjkeg-fsiemdzy (TRELEGY ELLIPTA) 200-62.5-25 mcg inhalation powder Inhale [...] the sedation, infusion, injec (more content not included)...[facility]07-30-2025 History of Present illness Narrative* Lakeisha Dawkins, - 09/05/2024 2:19 PM EDT Patient self-referred for muscle invasive bladder cancer. HPI: The patient is a 74-year-old male with a past medical history as outlined below. Developed gross hematuria and noticed debris in urine. Saw Dr. Winston. Had TURBT with chemo flush. Path below. Referred to [facility] b/c patient declined cystectomy. Per Dr. [...] ppd since age 15 years Pathology from [facility] reviewed at main campus: A. Urinary [...] cough. Clear sputum. Sees Dr. Zuñiga at [facility]. Smokes about 1/2 ppd. No alcohol. [...] Take 5 mg by mouth once daily. pbsdnfcxeid-tplnvbvrq-pfwpbpuu (TRELEGY ELLIPTA) 200-62.5-25 mcg inhalation powder Inhale 1 puff asinstructed once daily. acetaminophen (TYLENOL) 325 mg tablet [...] Take 1 tablet by mouth two times aday for 7 days. (Patient not taking: Reported [...] use: No Drug use: No Worked for [employer]. [employer]. FAMILY HISTORY Problem Relation Age of Onset [...] and the small potential for as a consequenceof severe toxicity/complications of therapy), benefits and alternatives, [...] which included preparing to see the patient, oayr-vd-scte patient care, completing clinical documentation, obtaining and/or reviewing separately obtained history, performing a medically appropriate examination, counseling and educating the pat ient/family/caregiver, ordering medications, tests, or procedures, communicating with other HCPs (not separately reported), and communicating results to the patient/family/caregiver. 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 August 30, 2024 7:53am Essential hypertension chronic Ju ly 2024 7:53am History of aortic valve replacement February 12, 2019 chronic August 30 7:53am Hyperlipidemia chronic August 30, 2024 7:53am Smoking greater than 40 pack years chronic August 30, 2024 7:53am GI bleed acute November 07, 025 7:29pm Hemorrhagic shock acute November 07, 2024 7:29pm [facility] Work Phone: 1(888) 187-880407-24-2025 Evaluation note* Diagnosis Onset Date Resolution Status Admit Date Abdominal aortic aneurysm (AAA) chronic August 30, 2024 7:53am 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 August 30, 2024 7:53am Essential hypertension chronic Ju ly 2024 7:53am History of aortic valve replacement February 12, 2019August 30 7:53am Hyperlipidemia chronic August 30, 2024 7:53am Smoking greater than 40 pack years chronic August 30, 2024 7:53am GI bleed acute November 07, 025 8:14pm Hemorrhagic shock acute November 07, 2024 8:14pm [facility] Work Phone: 1(220) 995-444407-23-2025 Telephone encounter Note* Telephone Encounter - Karen Post RN - 08/29/2024 4:48 PM EDT Returned call to Abelardo Ivory regarding establishing care at [facility]. Contacted [facility] and spoke with Saira in hem/onc and she was able to schedule Darrel for: 09/05/2024 @ 2PM with Dr. Lakeisha Dawkins. All questions addressed. Karen KIRBY, RN Specialty [facility]07-23-2025 Miscellaneous Notes* Telephone Encounter - Karen Post RN - 08/29/2024 4:48 PM EDT Returned call to Abelardo Ivory regarding establishing care at [facility]. Contacted [facility] and spoke with Saira in hem/onc and she was able to schedule Darrel for: 09/05/2024 @ 2PM with Dr. Lakeisha Dawkins. All questions addressed. Karen KIRBY, RN [facility] * Telephone Encounter - Tabitha Hayes - 08/29/2024 3:26 PM EDT Abelardo Ivory is calling Codey Christianson MD today regarding [facility] - Other Patient wants to have his radiation locally at the [facility] in [place]. [place] told him they need information from Dr. Christianson to make sure they have the treatment he needs/getting. Can someone call the patient back Patient has been identified by name and birthdate. Requesting response back: [phone] (home) [phone] (cell) Tabitha Hayes August 29, 2024 documented in this encounterC[facility]07-23-2025 Telephone encounter Note * Telephone Encounter - Tabitha Hayes - 08/29/2024 3:26 PM EDT Abelardo Ivory is calling Codey Christianson MD today regarding [facility] - Other Patient wants to have his radiation locally at the [facility] in [place]. [place] told him they need information from Dr. Christianson to make sure they have the treatment he needs/getting. Can someone call the patient back Patient has been identified by name and birthdate. Requesting response back: [phone] (home) [phone] (cell) Tabitha Hayes August 29, 2024 [facility]07-23-2025 NoteHNO ID: [id number] Author: STACY GAUTHIER MD Service: ? Author [...] (no units) Date Value 02/06/2019 Negative Specific [place], Ur (no units) Date Value 02/06/2019 1.017 [...] Take 5 mg by mouth once daily. xuontcsiqxs-imblqufnu-ainuzdsi (TRELEGY ELLIPTA) 200-62.5-25 mcg inhalation powder Inhale [...] 2.6 Assessment and Delmi (more content not included)...[facility] 08-29-2024 History of Present illness Narrative* Stacy Gauthier MD - 08/29/2024 1:11 PM EDT ESTABLISHED PATIENT OFFICE VISIT HISTORY OF PRESENT [...] (no units) Date Value 02/06/2019 Negative Specific [place], Ur (no units) Date Value 02/06/2019 1.017 [...] Take 5 mg by mouth once daily. htkmjfjtank-wpmuzmksm-ihnjydmd (TRELEGY ELLIPTA) 200-62.5-25 mcg inhalation powder Inhale 1 puff asinstructed once daily. oxyCODONE IR (ROXICODONE) 5 mg [...] T2 +[facility] 07/26/2024 Scr 1.5 06/07/2024 [place] ([place]) 01/01/2022 Scr 2.6 Assessment and Plan: CRF- pt with chronic RI, latest eGFR 47 Bladder cancer- s/p TURBT in [place] (?? urologist), on repeat cysto I saw large amount of necrotic tissue starting at the bladder involving the majority of the trigone -pt with known T2 dx, told him that [facility] is neoadjuvant chemo followed by radical cystectomy and they understand - he has seen oncology, Dr Christianson @ [facility] and per his notes pt is [...] and Pyridium sent in) documented in this encounterC[facility]07-18-2025 Telephone encounter Note * Telephone Encounter - Farheen Valentine RN - 08/24/2024 3:24 PM EDT CASE [id number]: Spoke with patient, states he saw urology this week and stent was placed. Patient states he has decided not to do the study and would like to follow in [place] for chemo if possible. Aware Dr Christianson will be notified. [facility]07-18-2025 Miscellaneous Notes* Telephone Encounter - Farheen Valentine RN - 08/24/2024 3:24 PM EDT CASE [id number]: Spoke with patient, states he saw urology this week and stent was placed. Patient states he has decided not to do the study and would like to follow in [place] for chemo if possible. Aware Dr Christianson will be notified. documented in this encounterC[facility]07-16-2025 Telephone encounter Note * Telephone Encounter - Farheen Valentine, RN - 08/22/2024 12:24 PM EDT CASE [id number]: Left message on voicemail for pt to return call [facility]07-16-2025 Miscellaneous Notes* Telephone Encounter - Farheen Valentine RN - 08/22/2024 12:24 PM EDT CASE [id number]: Left message on voicemail for pt to return call documented in this encounterC[facility]07-15-2025 Telephone encounter Note * Telephone Encounter - Stacy Gauthier MD - 08/21/2024 4:01 PM EDT Unable to find left orifice, pt asymptomatic and only mild hydro on CT so may be draining. To have XRT/immunoTx @ [facility] - check CT flank and blood work mid Sep to assess hydro, if worse then will need PNT (discussed with dtr)- we can review results on phone as they live in [place] Stacy Gauthier MD [facility]07-15-2025 Miscellaneous Notes* Telephone Encounter - Stacy Gauthier MD - 08/21/2024 4:01 PM EDT Unable to find left orifice, pt asymptomatic and only mild hydro on CT so may be draining. To have XRT/immunoTx @ [facility] - check CT flank and blood work mid Sep to assess hydro, if worse then will need PNT (discussed with dtr)- we can review results on phone as they live in [place] Stacy Gauthier MD documented in this encounterCleveland [facility]07-15-2025 NoteHNO ID: [id number] Author: ABIGAIL WANG APRN.POACHER OPERATOR Service: Anesthesiology Author Type: Nurse Extruding Press Operator Type: Anesthesia Procedure Notes Filed: 08/21/2024 15:15 Note Text: ANESTHESIOLOGY PROCEDURE NOTE Airway General Information Procedure Start Time/Medication Administration: 08/21/2024 3:08 PM Procedure End Time: 08/21/2024 3:08 PM Patient location during procedure: OR Timeout Performed Pre-procedure: timeout performed Consent Obtained: Yes Patient identity confirmed: arm band Staffing Anesthesiologist: Kaleigh Benites MD POACHER OPERATOR: Abigail Wang APRN.POACHER OPERATOR Performed by: JAVI Indications and Patient Condition Indications for airway management: anesthesia and airway protection Preoxygenated: yes anesthesia circuit Patient position: sniffing Method: asleep Final Airway Details Final airway type: supraglottic airway Number of attempts at approach: 1 Ventilation between attempts: BVM Final Supraglottic Airway: i-gel Size 5 Seal Adequate: yes SIGNATURE: Abigail Wang APRN.POACHER OPERATOR PATIENT NAME: Abelardo Ivory DATE: August 21, 2024 TIME: 3:14 PM CSN: [id number][facility] Instructions * Patient Instructions* Marisela Dsouza APRN.PATTERNMAKER HAND - 08/16/2024 10:39 AM EDT PATIENT PREOPERATIVE INSTRUCTIONS Your surgeon has scheduled you for your procedure at this surgery center: [facility] [phone] [address]. [place], [place] [address] Please enter through the main entrance, and [...] Motrin, Celebrex, Mobic, Voltaren, Diclofenac, etc.) 7 daysbefore surgery, as directed by your surgeon. -You may take Tylenol or pain medications that do not contain Aspirin or NSAIDs. - Stop Vitamin E, fish oil, multivitamins, Marijuana, CBD oil and other over the counter herbals and dietary supplements 7 days before surgery. ?-This would not apply to cancer patients who are prescribed Marinol or any other prescription formon marijuana or CBD. -IF YOU TAKE ANY OF THE FOLLOWING BLOOD THINNERS, PLEASE CONTACT YOUR SURGEON AND THE PHYSICIAN WHOPRESCRIBES IT FOR YOU IN ORDER TO GET PERIOPERATIVE INSTRUCTIONS SOON POSSIBLE. BLOOD THINNERS: Aspirin , Coumadin, Plavix, Eliquis, Pradaxa, Xarelto, Lovenox, Brilinta, Effient, Savaysa, Arixtra, etc Medications: Approved medications to take the morning of surgery with a sip of water: BP, Heart, thyroid, psych,seizure, and pain medications excluding NSAIDS. Use inhalers [...] 81 mg chewable tablet Follow surgeon's instructions. mjbthenwbue-pexdxqsws-jcllfbfk (TRELEGY ELLIPTA) 200-62.5-25 mcg inhalation powder Continue as prescribed. metoprolol tartrate, short acting, (LOPRESSOR) 25 mg tablet If you normally take this medication inthe morning, it is ok to take the [...] Tanzeum (albiglutide), Trulicity (dulaglutide), Victoza (liraglutide), Wegovy ( semaglutide), Saxenda (liraglutide),Xultophy (degludec/liraglutide) . Oral form- Rybelsus [...] have someone to drive you home or takecare of you for 24 hours. - If [...] surgery. - YOU MUST HAVE A RESPONSIBLE MANAGER TALENT MANAGEMENT TAKE YOU HOME. A HOTEL OFFICE MANAGER, CAB OR UBER MANAGER TALENT MANAGEMENT CANNOT BE MADEA RESPONSIBLE MANAGER TALENT MANAGEMENT. - We recommend that a responsible person stays with you overnight to take care of you. - You cannot stay in a hotel alone after outpatient surgery. You will not be permitted to have yoursurgery, if you do not have someone to take care of you. - If you have a stimulator, implant or pump that requires a remote please bring the remote with youday of surgery. If you develop symptoms such as a fever, cold, or flu, or have other changes to your health within TWO DAYS of scheduled surgery or the morning of surgery, please contact the surgery center above. Visitors to any [facility] facility: - An individual who is sick should not visit. - Visitors to patients with COVID-19 must follow these guidelines, which include wearing a mask, eye protection, gown and gloves. [facility]- Visitations are: - Visitation hours are [...] but if you wish to bring undergarments forafter surgery you may. -If you do not have a copy of advance directives on file with us, please bring a copy with you on the day of surgery. If you already have an Advance Directive, please fax a copy to [phone] or Marce GARCIA at [phone] or email to for it to be [...] scanned into your chart that day. 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 Limited study. Essential hypertension Assessment: taking taking metoprolol; amlodipine Hyperlipidemia Assessment: taking rosuvastatin 5 mg daily Centrilobular emphysema (HCC) Assessment: Albuterol as needed; Trelegy as scheduled. Patient denies hospitalizations or pneumoniawithin 6 weeks. Type 2 diabetes mellitus without [...] Take 5 mg by mouth once daily. hluicvcuote-sbmqquwjr-crtkvgac (TRELEGY ELLIPTA) 200-62.5-25 mcg inhalation powder Sig: [...] obtain any additional testing required based on anesthesiaguidelines. We will also identify any potential anesthesia problems or contraindications to the planned procedure. Subjective The patient has the following: COVID-19 Immunization Status Current Care Gaps Covid-19 Vaccine () Never done No completion, postpone, frequency change, [...] 5 mg by mouth once daily. Yes jjvtswigacf-crxywbuzv-wykwtyvz (TRELEGY ELLIPTA) 200-62.5-25 mcg inhalation powder Inhale 1 puff asinstructed once daily. Yes acetaminophen (TYLENOL) 325 mg [...] (1.68m) Wt 156 lb 6.4 oz (70.9kg) [id number]% BMI 25.26 kg/(m^2). Diagnostic tests reviewed for [...] or any previous visit (from the past 86063 hours). Implantable Devices: None Assessment/Plan Malignant neoplasm [...] which included preparing to see the patient, tphf-ca-qppw patient care, completing clinical documentation, obtaining and/or reviewing separately obtained history, performing a medically appropriate examination, and counseling and educating the patient/family/caregiver. 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 Type 2 diabetes mellitus without [...] Take 5 mg by mouth once daily. nywbxylaofx-rwikssqqr-qaeizqmc (TRELEGY ELLIPTA) 200-62.5-25 mcg inhalation powder Sig: [...] obtain any additional testing required based on anesthesiaguidelines. We will also identify any potential anesthesia [...] 5 mg by mouth once daily. Yes mqqwyuhilgx-caosdvapv-cjgubqcj (TRELEGY ELLIPTA) 200-62.5-25 mcg inhalation powder Inhale 1 puff asinstructed once daily. Yes acetaminophen (TYLENOL) 325 mg [...] (1.68m) Wt 156 lb 6.4 oz (70.9kg) [id number]% BMI 25.26 kg/(m^2). Diagnostic tests reviewed for [...] or any previous visit (from the past 45784 hours). Implantable Devices: None Assessment/Plan Malignant neoplasm [...] which included preparing to see the patient, [id number] patient care, completing clinical documentation, obtaining and/or reviewing separately obtained history, performing a medically appropriate examination, and counseling and educating the patient/family/caregiver. SIGNATURE: Marisela Dsouza APRN.CNP PATIENT NAME: Abelardo Ivory DATE: August 16, 2024 TIME: 7:23 AM PAGER/CONTACT #: documented in this encounterC[facility]25 NoteHNO ID: [id number] Author: KAREN COELHO LPN Service: ? Author Type: LICENSED NURSE Type: Progress Notes Filed: 08/07/2024 14:06 Note Text: Additional intake questions: Has the patient had fever, nausea, vomiting, diarrhea, constipation, fatigue for > 1 week? No Does the patient have a decreased appetite? No Does patient want to see a Conciliation Court Judge? No (yes to any of above refer patient to schedulers for dietitian appointment) ) Does patient have any new or increased numbness or tingling of extremities? No Is patient interested in fertility information? No Does patient need any prescription refills? No Does patient have an advanced directive in place? Yes, copies are in [employer] Electronically Signed By: Karen Coelho [facility] History of Present illness Narrative* Karen Coelho LPN - 08/07/2024 1:06 PM EDT Additional intake questions: Has the patient had fever, nausea, vomiting, diarrhea, constipation, fatigue for > 1 week? No Does the patient have a decreased appetite? No Does patient want to see a Conciliation Court Judge? No (yes to any of above refer patient to schedulers for dietitian appointment) ) Does patient have any new or increased numbness or tingling of extremities? No Is patient interested in fertility information? No Does patient need any prescription refills? No Does patient have an advanced directive in place? Yes, copies are in [employer] * Codey Christianson MD - 07/26/2024 10:14 AM EDT [facility] INITIAL CONSULT NOTE Date [...] which included preparing to see the patient, [id number] patient care, completing clinical documentation, obtaining and/or reviewing separately obtained history, performing a medically appropriate examination, counseling and educating the pat ient/family/caregiver, ordering medications, tests, or procedures, communicating with other HCPs (not separately reported), independently interpreting results (not separately reported), communicatingresults to the patient/family/caregiver, and care coordination (not separately reported). Codey Christianson MD Staff Physician Department of Hematology [place] [address] * Karen Coelho LPN - 07/26/2024 8:59 AM EDT Additional intake questions: Has the patient had fever, nausea, vomiting, diarrhea, constipation, fatigue for > 1 week? No Does the patient have a decreased appetite? No Does patient want to see a Conciliation Court Judge? No (yes to any of above refer patient to schedulers for dietitian appointment) ) Does patient have any new or increased numbness or tingling of extremities? No Is patient interested in fertility information? No Does patient need any prescription refills? No Does patient have an advanced directive in place? Yes, copies are in [employer] * Karen Coelho LPN - 07/26/2024 8:32 AM EDT Additional intake questions: Has the patient had fever, nausea, vomiting, diarrhea, constipation, fatigue for > 1 week? No Does the patient have a decreased appetite? No Does patient want to see a Conciliation Court Judge? No (yes to any of above refer patient to schedulers for dietitian appointment) ) Does patient have any new or increased numbness or tingling of extremities? No Is patient interested in fertility information? No Does patient need any prescription refills? No Does patient have an advanced directive in place? Yes, copies are in [employer] documented in this encounterC[facility]06-27-[facility] Telephone encounter Note * Telephone Encounter - Farheen Valentine RN - 08/03/2024 3:51 PM EDT CASE [id number]: Spoke with patient, states he [...] holiday. Patient will need repeat TURBT at [facility] due to previously being done at [facility]. [facility]06-27-2025 Miscellaneous Notes* Telephone Encounter - Farheen Valentine RN - 08/03/2024 3:51 PM EDT CASE [id number]: Spoke with patient, states he [...] hol. Patient will need repeat TURBT at [facility] due to previously being done at [facility]. documented in this encounterCleveland Clinic [facility]06-26-2025 History of Present illness Narrative* Stacy Gauthier MD - 08/02/2024 2:15 PM EDT NEW PATIENT HISTORY AND PHYSICAL EXAM HISTORY [...] (no units) Date Value 02/06/2019 Negative Specific [place], Ur (no units) Date Value 02/06/2019 1.017 [...] eGFR 47 Bladder cancer- s/p TURBT in [place] (?? urologist) pt with T2 dx, told him he needs neoadjuvant chemo (has already seen oncology, Dr Christianson @ [facility]) followed by radical cystectomy; they are not sure of the treatment plan but will need to see Urology @ [facility] if desires cystectomy Left hydro- pt [...] proceed Schedule cysto, TURBT, left stent @ [facility] documented in this encounterC[facility] Clinic [facility]06-26-2025 NoteHNO ID: [id number] Author: STACY GAUTHIER MD Service: ? Author [...] (no units) Date Value 02/06/2019 Negative Specific [place], Ur (no units) Date Value 02/06/2019 1.017 [...] 07/31/2024 CT c/a/p mild (more content not included)...[facility]06-24-2025 History of Present illness Narrative* Reef Samina Avery, RT(R) - 07/31/2024 2:20 PM EDT Radiology Service Progress Note DATE OF SERVICE: [...] PATIENT PRESENTS WITH AN IMPLANTABLE OR ATTACHED DRENCHER: No ALLERGIES: Reviewed and unchanged CONTRAST ALLERGY: [...] creatinine assay has traceable calibration to isotope dilution- mass spectrometry. Refer to KDIGO guidelines for clinical interpretation. In patients with unstable renal function, e.g. those with acute kidney injury, the eGFRmay not accurately reflect actual GFR. eGFR- (POCT) Date Value Ref Range Status 10/08/2019 >60 mL/min/1.73 m2 Final P.O.C.T. RESULTS: POC done: Yes, See Lab Tab July 31, 2024 TREATMENT: N/A PERIPHERAL IV DATA: Ambulatory: A peripheral IV was started in the Left antecubital site with a Angio cath: 22 gauge. RADIOLOGY DEPARTMENT: CT; Exam(s) Completed: Chest Abdomen Pelvis SIGNATURE: LISSET Phelps) PATIENT NAME: Abelardo Ivory DATE: July 31, 2024 TIME: 2:25 PM documented in this encounterCleveland Clinic [facility]06-24-2025 NoteHNO ID: [id number] Author: SAMINA NUNEZ RT(R) Service: ? Author Type: Manufacturing Plant Technician Type: Progress Notes Filed: 07/31/2024 14:26 [...] PATIENT PRESENTS WITH AN IMPLANTABLE OR ATTACHED DRENCHER: No ALLERGIES: Reviewed and unchanged CONTRAST ALLERGY: [...] Ivory DATE: July 31, 2024 TIME: 2:25 [facility]06-19-2025 NoteHNO ID: [id number] Author: FARHEEN VALENTINE RN Service: ? Author [...] presented. 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 Consent expiration date 04/15/2025 Spoke with patient and family at the request of Dr. Codey Christianson MD--[phone]. Treatment plan, including all testing, potential risks/benefits, side effects and management, treatment alternatives, and follow-up explained. Roles of the clinical trial personnel to be involved and the financial r esponsibilities regarding procedures and medications were discussed. Discussed the importance of effective contraception during and following completion of active therapy for 3 month(s). Initial questions were answered and a copy of the informed consent was given to patient with the instructions toread it and call with any additional questions. Contact information for the research nurse was given to the patient. The patient verbalized appropriate understanding of all the aforementioned information presented. Time of Presentation: 102 Farheen Sommers RN documented in this encounterC[facility] Clinic [facility]06-19-2025 NoteHNO ID: [id number] Author: CODEY CHRISTIANSON MD Service: ? Author Type: Physician Type: Progress Notes Filed: 08/07/2024 14:06 Note Text: [facility] INITIAL CONSULT NOTE Date [...] which included preparing to see the patient, [id number] patient care, completing clinical documentation, obtaining and/or reviewing separately obtained history, performing a medically appropriate examination, counseling and educating the patient/family/caregiver, ordering medications, tests, or procedures, communicating with other HCPs (not separately reported), independently interpreting results (not separately reported), communicating results to the patient/family/caregiver, and care coordination (not separately reported). Codey Christianson MD Staff Physician Department of Hematology and Medical Oncology [facility] (more content not included)...[facility]06-19-2025 NoteHNO ID: [id number] Author: KAREN COELHO LPN Service: ? Author Type: LICENSED NURSE Type: Progress Notes Filed: 08/07/2024 14:06 Note Text: Additional intake questions: Has the patient had fever, nausea, vomiting, diarrhea, constipation, fatigue for > 1 week? No Does the patient have a decreased appetite? No Does patient want to see a Conciliation Court Judge? No (yes to any of above refer patient to schedulers for dietitian appointment) ) Does patient have any new or increased numbness or tingling of extremities? No Is patient interested in fertility information? No Does patient need any prescription refills? No Does patient have an advanced directive in place? Yes, copies are in [employer] Electronically Signed By: Karen Coelho [facility]06-19-2025 NoteHNO ID: [id number] Author: KAREN COELHO LPN Service: ? Author Type: LICENSED NURSE Type: Progress Notes Filed: 08/07/2024 14:06 Note Text: Additional intake questions: Has the patient had fever, nausea, vomiting, diarrhea, constipation, fatigue for > 1 week? No Does the patient have a decreased appetite? No Does patient want to see a Conciliation Court Judge? No (yes to any of above refer patient to schedulers for dietitian appointment) ) Does patient have any new or increased numbness or tingling of extremities? No Is patient interested in fertility information? No Does patient need any prescription refills? No Does patient have an advanced directive in place? Yes, copies are in [employer] Electronically Signed By: Karen Coelho [facility]05-22-2025 [facility]05-21-2025 [facility] 06-22-2024 Radiology Diagnostic study note [facility] Imaging Services [address] [place] [address] Abdomen/Pelvis WITH Contrast MR#: [id number] Acct: [id number] Name: ABELARDO IVORY Rep #: [id number] : 1950 M 74 From: Moses Briseno MD PCP: Dr. Padmini Carrasco MD Status: REG CLI Study:Abdomen/Pelvis WITH Contrast Date of Ex am: 06/21/24 Exam# [id number] Ordering Dr: Bhargavi Winston MD PROCEDURE: ABDOMEN/PELVIS WITH CONTRAST 06/21/2024 REASON [...] bladder worse on the leftside. A mass lesionshould be ruled out. This is the reason [...] infrarenal abdominal aorta with extension to the rightand left common iliac arteries. Bilateral inguinal hernias containing fat worse on the left side. Calcified hepatic and splenic granulomas. Reading Location: [id number] CC: Dr. Padmini Carrasco MD; Dr. 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 June 8:36am Essential hypertension chronic 2024 8:36am History of aortic valve replacement February 12, 2019June 19, 2024 8:36am Hyperlipidemia chronic June 19, 2024 8:36am Smoking greater than 40 pack years chronic June 19, 2024 8:36am Pre-operative cardiovascular examination acute August 30, 2024 7:53am Abdominal aortic aneurysm (AAA) chronic August 30, 2024 7:53am 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 August 7:53am Essential hypertension chronic Ju ly 2024 7:53am History of aortic valve replacement February 12, 2019August 30 7:53am Hyperlipidemia chronic August 30, 2024 7:53am Smoking greater than 40 pack years chronic August 30, 2024 7:53am [place] [employer] Work Phone: 1(692) 809-395505-13-2025 Evaluation note* Diagnosis Onset Date Resolution Status Admit Date Pre-operative cardiovascular examination acute June 19, 2024 8:36am Abdominal aortic aneurysm (AAA) chronic June 19, 2024 8:36am 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 June 8:36am Essential hypertension chronic Ma y 2024 8:36am History of aortic valve replacement February 12, 2019June 19, 2024 8:36am Hyperlipidemia chronic June 19, 2024 8:36am Smoking greater than 40 pack years chronic June 19, 2024 8:36am Abdominal aortic aneurysm (AAA) chronic August 30, 2024 7:53am 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 August 7:53am Essential hypertension chronic Ju ly 2024 7:53am History of aortic valve replacement February 12, 2019August 30 7:53am Hyperlipidemia chronic August 30, 2024 7:53am Smoking greater than 40 pack years chronic August 30, 2024 7:53am [facility] Work Phone: 1(231) 990-812604-09-2025 Radiology Diagnostic study note [facility] Imaging Services [address] [place] [address] Abdomen/Pelvis without Cont MR#: [id number] Acct: [id number] Name: ABELARDO IVORY Rep #: [id number] : 1950 M 74 From: Diana Huynh MD PCP: Dr. Padmini Carrasco MD Status: REG ER Study:Abdomen/Pelvis without Cont Date of Exa m: 05/16/24 Exam# [id number] Ordering Dr: Kelly Turpin DO PROCEDURE: ABDOMEN/PELVIS [...] Padmini Carrasco MD; Jeffery Turpin DO ~ [employer] Tap: Signed [facility]02-14-2025 Evaluation note* Diagnosis Onset Date Resolution Status Admit Date COPD (chronic obstructive pulmonary disease) chronic March 12:36pm Smoking greater than 40 pack years chronic March 23 025 12:36pm [facility] Work Phone: 1(728) 952-995202-14-2025 Evaluation note* Diagnosis Onset Date Resolution Status Admit Date COPD (chronic obstructive pulmonary disease) chronic March 12:36pm Smoking greater than 40 pack years chronic March 23 025 12:36pm Pre-operative cardiovascular examination acute June 19, 2024 8:36am Abdominal aortic aneurysm (AAA) chronic June 19, 2024 8:36am 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 June 19, 2024 8:36am Essential hypertension chronic 2024 8:36am History of aortic valve replacement February 12, 2019 chronic June 19, 2024 8:36am Hyperlipidemia chronic June 19, 2024 8:36am Smoking greater than 40 pack years chronic June 19, 2024 8:36am [facility] Work Phone: 1(582) 232-147612-26-2024 Evaluation note* Diagnosis Onset Date Resolution Status Admit Date S/P inguinal hernia repair acute February 02, 2024 8:27am COPD (chronic obstructive pulmonary disease) chronic March 12:36pm Smoking greater than 40 pack years chronic March 23 025 12:36pm [facility] Work Phone: 1(281) 428-101012-11-2024 [facility]04-21-2023 Progress note Author Tonia Jenkins [facility] May 28, 2022 11:31am Note Date/Time May 28, 2022 11: 18am [facility] [address] [place] [address] Progress Note - Wound Care 05/28/22 1116 MR#: [id number] Acct: [id number] Name: ABELARDO IVORY Rep #:[id number] : 1950 72 From: Tonia ACUNA PCP: Dr. Ezekiel Carrasco MD Status: REG R Location: History of Present Illness Date of Service: 05/28/22 Chief Complaint: Left wrist wound Multiple bilateral lower extremity wounds History of Wound: Patient is new to [facility] but known to me from the vascular surgery clinic. 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 Patient was understandably quite ill following this [...] Method Room Air Charges/Coding Procedures Integumentary 111xxx-113xx: 67097 Sylvia subq tissue 20 sq cm/< Physical [...] Start: 05/14/22 08:07 Freq: Status: Active Protocol: CORBY.LOWBRIANT Activity Type Activity Date Activity User E-sign Co-sign Detail Recorded Client Recorded Date Recorded By Document 05/14/22 08:07 [id number] 05/14/22 08:18 Document 05/21/22 08:08 [facility] [id number] 05/21/22 08:20 [facility] Document 05/28/22 08:47 [facility] [id number] 05/28/22 08:52 [facility] 05/14/22 05/21/2223 08:07 08:08 08:47 - Today's Visit Information Type of service Follow-up Visit Follow-up Visit Follow-up Visit (Physician/PATTERNMAKER HAND (Physician/PATTERNMAKER HAND (Physician/PATTERNMAKER HAND ) ) ) Arrival Mode Ambulatory Ambulatory [...] Date Recorded By Document 05/14/22 08:07 [facility] [id number] 05/14/22 08:18 KENTRELL Document 05/21/22 08:08 [facility] [id number] 05/21/22 08:20 BM Document 05/28/22 08:47 [facility] [id number] 05/28/22 08:52 BMF 05/14/22 05/21/22 05/28/22 08:07 [...] (34-66%) None Present (0 %) -Granulation Quality [place] -Slough/Fibrin Yes Yes Yes -Necrosis Amt Small [...] Date Recorded By Document 05/14/22 08:51 PL [id number] 05/14/22 09:00 PL Document 05/21/22 08:55 PL [id number] 05/21/22 08:57 PL Document 05/28/22 09:25 PL [id number] 05/28/22 09:27 PL 05/14/22 05/21/22 05/28/22 08:51 [...] Healed- Epithelialized #3 R Ant Ankle -Time : 08:45 -Correct Patient Yes Yes -Correct Side, [...] Yes Yes #8 Right Lat ankle -Time 08: 08:45 09:00 -Correct Patient Yes Yes Yes [...] Recorded Date Recorded By Document 05/14/22 08:58 [id number] 05/14/22 08:59 Document 05/21/22 08:56 Desktop 05/21/22 08:57 Document 05/28/22 09:06 [id number] 05/28/22 09:07 05/14/22 05/21/22 05/28/22 08:58 08:56 [...] Cosigner Signature (if applicable): CC: ~ Signed [facility] Work Phone: 1(245) 164-514704-14-2023 Progress note Author Tonia Jenkins [facility] May 21, 2022 2:01pm Note Date/Time May 21, 2022 1:4 5pm [facility] [address] [place] [address] Progress Note - Wound Care 05/21/22 1341 MR#: [id number] Acct: [id number] Name: ABELARDO IVORY Rep #:[id number] : 1950 72 From: Tonia ACUNA PCP: Dr. Ezekiel Carrasco MD Status: REG RCR Location: History of Present Illness Date of Service: 05/21/22 Chief Complaint: Left wrist wound Multiple bilateral lower extremity wounds History of Wound: Patient is new to [facility] but known to me from the vascular surgery clinic. 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 Patient was understandably quite ill following this [...] Method Room Air Charges/Coding Procedures Integumentary 111xxx-113xx: 28392 Sylvia subq tissue 20 sq cm/< Physical [...] Start: 05/14/22 08:07 Freq: Status: Active Protocol: CORBY.TIERRA Activity Type Activity Date Activity User E-sign Co-sign Detail Recorded Client Recorded Date Recorded By Document 05/14/22 08:07 [id number] 05/14/22 08:18 Document 05/21/22 08:08 [facility] [id number] 05/21/22 08:20 [facility] 05/14/22 05/21/22 08:07 08:08 - Today's Visit Information Type of service Follow-up Visit Follow-up Visit (Physician/PATTERNMAKER HAND (Physician/PATTERNMAKER HAND ) ) Arrival Mode Ambulatory Ambulatory Transfer [...] Patient Pain Free? Yes Yes - Nurse 1 - General Ulcer Measurement Start: 05/14/22 08:07 Freq: Status: Active Protocol: Activity Type Activity Date Activity User E-sign Co-sign Detail Recorded Client Recorded Date Recorded By Document 05/14/22 08:07 [id number] 05/14/22 08:18 Document 05/21/22 08:08 [facility] [id number] 05/21/22 08:20 [facility] 05/14/22 05/21/22 08:07 08:08 Wound Center [...] (34-66%) None Present (0 %) -Granulation Quality [place] -Slough/Fibrin Yes Yes -Necrosis Amt Small (1-33%) [...] Date Recorded By Document 05/14/22 08:51 PL [id number] 05/14/22 09:00 PL Document 05/21/22 08:55 PL [id number] 05/21/22 08:57 PL 05/14/22 05/21/22 08:51 08:55 [...] Recorded Date Recorded By Document 05/14/22 08:58 [id number] 05/14/22 08:59 Document 05/21/22 08:56 Desktop 05/21/22 [...] Cosigner Signature (if applicable): CC: ~ Signed [facility] Work Phone: 1(145) 835-495204-07-2023 Progress note Author Tonia Jenkins [facility] May 14, 2022 8:53am Note Date/Time May 14, 2022 8:53 am [facility] [address] [place] [address] Progress Note - Wound Care 05/14/22 0846 MR#: [id number] Acct: [id number] Name: ABELARDO IVORY Rep #:[id number] : 1950 72 From: Tonia ACUNA PCP: Dr. Ezekiel Carrasco MD Status: REG RCR Location: History of Present Illness Date of Service: 05/14/22 Chief Complaint: Left wrist wound Multiple bilateral lower extremity wounds History of Wound: Patient is new to [facility] but known to me from the vascular surgery clinic. 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 Patient was understandably quite ill following this [...] Multi Select Codes Integumentary Integumentary CPT Codes: 83508 Sylvia subq tissue 20 sq cm/< Physical [...] lat mal and R ant ankle/sanchez remain. [place], granulation tissue at the wound beds. Good [...] Date Recorded By Document 05/14/22 08:07 [facility] [id number] 05/14/22 08:18 KENTRELL 05/14/22 08:07 - Today's Visit Information Type of service Follow-up Visit (Physician/PATTERNMAKER HAND ) Arrival Mode Ambulatory Patient Requires Transmission-Based [...] Date Recorded By Document 05/14/22 08:07 [facility] [id number] 05/14/22 08:18 K[facility]LL 05/14/22 08:07 Wound Center [...] Scar -Granulation Amt Medium (34-66%) -Granulation Quality [place] -Slough/Fibrin Yes -Necrosis Amt Small (1-33%) -Necrotic [...] Cosigner Signature (if applicable): CC: ~ Signed [facility] Work Phone: 1(293) 590-704904-05-2023 Procedure [facility] 05-07-2022 Progress note Author [facility] May 07, 2022 12:01pm Note Date/Time May 07, 2022 12: 01pm [facility] [address] [place] [address] Progress Note - Wound Care 05/07/22 1156 MR#: [id number] Acct: [id number] Name: ABELARDO IVORY Rep #:[id number] : 1950 72 From: Tonia ACUNA PCP: Dr. Ezekiel Carrasco MD Status: [facility] Location: History of Present Illness Date of Service: 05/07/22 Chief Complaint: Left wrist wound Multiple bilateral lower extremity wounds History of Wound: Patient is new to [facility] but known to me from the vascular surgery clinic. 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 Patient was understandably quite ill following this [...] does not currently wear compression. Subjective Subjective Pailinnt has been applying Santyl and changing dressings [...] Air Charges/Coding Wound Center CF Procedures 96XXX-98XXX: 63520 RMVL DEVITAL TIS ADDL 20CM/< Multi Select Codes Wound Center CF Procedures 96XXX-98XXX: 47049 RMVL DEVITAL TIS ADDL 20CM/< Physical Exam [...] have healed. Only 4 remain on RLE. [place], granulation tissue at the wound beds. Good bleeding. No significant erythema, foul odor, drainage noted. Left wrist wound with pink granulation tissue at base, minimal slough. Significantly decreased in size from last week. 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: R continuity reader lower leg Laterality: Right Type of Debridement: [...] Recorded Date Recorded By Document 04/09/22 13:30 NM [id number] 04/09/22 13:42 NM Document 04/16/22 14:11 NM [id number] 04/16/22 14:21 NM Document 04/23/22 14:03 NE [id number] 04/23/22 14:17 NE Document 04/30/22 13:54 NM [id number] 04/30/22 14:09 NM Document 05/07/22 10:14 [facility] [id number] 05/07/22 10:26 [facility] 04/09/22 04/16/22 04/23/22 13:30 14:11 14:03 - Today's Visit Information Type of service Initial Visit Follow-up Visit Follow-up Visit (Physician/PATTERNMAKER HAND (Physician/PATTERNMAKER HAND ) ) Arrival Mode Ambulatory Ambulatory Ambulatory [...] Type of service Follow-up Visit Initial Visit (Physician/PATTERNMAKER HAND ) Arrival Mode Ambulatory Ambulatory Transfer Assistance [...] Date Recorded By Document 04/09/22 13:30 AK [id number] 04/09/22 13:42 AK Document 04/16/22 14:11 AK [id number] 04/16/22 14:21 AK Document 04/23/22 14:03 NE [id number] 04/23/22 14:17 MT Document 04/30/22 13:54 AK [id number] 04/30/22 14:09 AK Document 05/07/22 10:14 BM [id number] 05/07/22 10:26 BMF 04/09/22 04/16/22 04/23/22 13:30 [...] (34-66%) Medium (34-66%) %) -Granulation Quality N/A [place] Red -Slough/Fibrin Yes Yes Yes -Necrosis Amt [...] Present (0 %) %) -Granulation Quality N/A [place] -Slough/Fibrin Yes Yes Yes -Necrosis Amt Large [...] Present (0 %) %) -Granulation Quality N/A [place] -Slough/Fibrin Yes Yes Yes -Necrosis Amt Large [...] None Present (0 %) %) -Granulation Quality [place] -Slough/Fibrin Yes Yes Yes -Necrosis Amt Large [...] Date Recorded By Document 04/09/22 15:12 PL [id number] 04/09/22 15:29 PL Document 04/16/22 15:08 PL [id number] 04/16/22 15:18 PL Document 04/23/22 15:17 PL [id number] 04/23/22 15:26 PL Document 04/30/22 15:00 PL [id number] 04/30/22 15:08 PL Document 05/07/22 10:45 PL [id number] 05/07/22 10:57 PL 04/09/22 04/16/22 04/23/22 15:12 [...] Response Procedure Tolerated Well -Debridement - Subq, 20sq cm No #5 L wrist -Time [...] Response Procedure Tolerated Well -Debridement - Subq, 20sq cm No -Debridement, SubQ, ea addt'l 20sq cm or part thereof Pain Scale: 0-10 Numeric Is Patient Pain Free? Yes Yes WC - Nurse 3 - General Ulcer D/C NN Start: 04/09/22 13:29 Freq: Status: Active Protocol: Activity Type Activity Date Activity User E-sign Co-sign Detail Recorded Client Recorded Date Recorded By Document 04/09/22 15:05 NE [id number] 04/09/22 15:16 NE Document 04/16/22 14:59 NM [id number] 04/16/22 15:01 NM Document 04/23/22 14:53 [facility] [id number] 04/23/22 14:57 [facility] Document 04/30/22 15:04 AK [id number] 04/30/22 15:07 AK Document 05/07/22 11:08 [facility] [id number] 05/07/22 11:09 [facility] 04/09/22 04/16/22 04/23/22 15:05 14:59 14:53 [...] Tape Tape Tape -Other Covering DRSG PER NE RN #2 R ankle cluster -Ulcer Cleansing [...] Tape Tape Tape -Other Covering DRSG PER NE RN #1 R lateral foot -Ulcer Cleansing Soap and Water -Primary Dressing Covered/Secured with Dry Gauze & Roll Gauze, Secured with Tape #8 Right Lat Foot -Ulcer Cleansing Rinsed/ Irrigated with Saline -Foul Odor after Cleansing No -Primary Dressing Applied -Other Dressing SANTYL -Primary Dressing Covered/Secured with Dry Gauze & Roll Gauze, Secured with Tape -Other Covering DRSG PER NE RN -Promogran #7 Right 1st Toe -Ulcer Cleansing Rinsed/ Irrigated with Saline -Foul Odor after Cleansing No -Negative Pressure Wound Therapy -Primary Dressing Applied -Other Dressing SANTYL -Primary Dressing Covered/Secured with Dry Gauze & Roll Gauze, Secured with Tape -Other Covering DRSG PER NE RN -Promogran #6 R Dorsal -Ulcer Cleansing Rinsed/ Irrigated with Saline -Foul Odor after Cleansing No -Negative Pressure Wound Therapy -Primary Dressing Applied -Other Dressing SANTYL -Primary Dressing Covered/Secured with Dry Gauze & Roll Gauze, Secured with Tape -Other Covering DRSG PER NE -Promogran #5 L wrist -Ulcer Cleansing Rinsed/ Rinsed/ Irrigated with Irrigated with Saline Saline -Foul Odor after Cleansing No No -Negative Pressure Wound Therapy N/A -Primary Dressing Applied [facility] Promogran C Hydrogel ($) Mahnaz Matter Mahnaz Matter, Mepilex Border -Other Dressing DRSG PER NE RN -Primary Dressing Covered/Secured with Dry Gauze [...] Cosigner Signature (if applicable): CC: ~ Signed [facility] Work Phone: 1(792) 896-486803-27-2023 Procedure [facility] 04-30-2022 Progress note Author Tonia Jenkins [facility] April 30, 2022 2:55pm Note Date/Time April 30, 2022 2:3 8pm [facility] [address] [place] [address] Progress Note - Wound Care 04/30/22 1435 MR#: [id number] Acct: [id number] Name: ABELARDO IVOYR Rep #:[id number] : 1950 72 From: Tonia ACUNA PCP: Dr. Ezekiel Carrasco MD Status: REG RCR Location: History of Present Illness Date of Service: 04/30/22 Chief Complaint: Left wrist wound Multiple bilateral lower extremity wounds History of Wound: Patient is new to [facility] but known to me from the vascular surgery clinic. 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 Patient was understandably quite ill following this [...] Air Charges/Coding Wound Center CF Procedures 96XXX-98XXX: 95756 RMVL DEVITAL TIS 20 CM/< Multi Select Codes Wound Center CF Procedures 96XXX-98XXX: 76909 RMVL DEVITAL TIS 20 CM/< Physical Exam [...] few more have healed since last week. [place], granulation tissue at the wound beds. Good bleeding. No significant erythema, foul odor, drainage noted. Left wrist wound with pink granulation tissue at base, minimal slough. Significantly decreased in size from last week. 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: R continuity reader lower leg Laterality: Right Type of Debridement: [...] Recorded Date Recorded By Document 04/09/22 13:30 NM [id number] 04/09/22 13:42 NM Document 04/16/22 14:11 NM [id number] 04/16/22 14:21 NM Document 04/23/22 14:03 NE [id number] 04/23/22 14:17 NE Document 04/30/22 13:54 NM [id number] 04/30/22 14:09 NM 04/09/22 04/16/22 04/23/22 13:30 14:11 14:03 - Today's Visit Information Type of service Initial Visit Follow-up Visit Follow-up Visit (Physician/PATTERNMAKER HAND (Physician/PATTERNMAKER HAND ) ) Arrival Mode Ambulatory Ambulatory Ambulatory [...] Visit Information Type of service Follow-up Visit (Physician/PATTERNMAKER HAND ) Arrival Mode Ambulatory Transfer Assistance Patient [...] Recorded Date Recorded By Document 04/09/22 13:30 NM [id number] 04/09/22 13:42 NM Document 04/16/22 14:11 NM [id number] 04/16/22 14:21 NM Document 04/23/22 14:03 NE [id number] 04/23/22 14:17 NE Document 04/30/22 13:54 NM [id number] 04/30/22 14:09 NM 04/09/22 04/16/22 04/23/22 13:30 14:11 14:03 Wound [...] (34-66%) Medium (34-66%) %) -Granulation Quality N/A [place] Red -Slough/Fibrin Yes Yes Yes -Necrosis Amt [...] Present (0 %) %) -Granulation Quality N/A [place] -Slough/Fibrin Yes Yes Yes -Necrosis Amt Large [...] None Present (0 %) %) -Granulation Quality [place] -Slough/Fibrin Yes Yes Yes -Necrosis Amt Large [...] Present (0 %) %) -Granulation Quality N/A [place] -Slough/Fibrin Yes Yes Yes -Necrosis Amt Large [...] Date Recorded By Document 04/09/22 15:12 PL [id number] 04/09/22 15:29 PL Document 04/16/22 15:08 PL [id number] 04/16/22 15:18 PL Document 04/23/22 15:17 PL [id number] 04/23/22 15:26 PL 04/09/22 04/16/22 04/23/22 15:12 [...] Date Recorded By Document 04/09/22 15:05 MT [id number] 04/09/22 15:16 MT Document 04/16/22 14:59 AK [id number] 04/16/22 15:01 AK Document 04/23/22 14:53 [facility] [id number] 04/23/22 14:57 BMF 04/09/22 04/16/22 04/23/22 15:05 14:59 14:53 Wound [...] Matter, Mepilex Border -Other Dressing DRSG PER NE RN -Primary Dressing Covered/Secured with Dry Gauze [...] Tape Tape Tape -Other Covering DRSG PER NE RN Right -Lotion applied to leg before [...] 1 week or sooner as needed. 04/30/22 0083 <Electronically signed by Tonia ACUNA> Cosigner Signature (if applicable): CC: ~ Signed [facility] Work Phone: 1(397) 664-215203-17-2023 Progress note Author Tonia [facility] April 23, 2022 5:51pm Note Date/Time April 23, 2022 5:5 1pm [facility] [address] [place] [address] Progress Note - Wound Care 04/23/22 1744 MR#: [id number] Acct: [id number] Name: ABELARDO IVORY Rep #:[id number] : 1950 72 From: Tonia ACUNA PCP: Dr. Ezekiel Carrasco MD Status: REG R Location: History of Present Illness Date of Service: 04/23/22 Chief Complaint: Left wrist wound Multiple bilateral lower extremity wounds History of Wound: Patient is new to [facility] but known to me from the vascular surgery clinic. 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 Patient was understandably quite ill following this [...] Air Charges/Coding Wound Center CF Procedures 96XXX-98XXX: 82038 RMVL DEVITAL TIS 20 CM/< Multi Select Codes Wound Center CF Procedures 96XXX-98XXX: 08235 RMVL DEVITAL TIS 20 CM/< Physical Exam [...] appearance. Some have healed since last week. [place], granulation tissue at the wound beds. Good bleeding. No significant erythema, foul odor, drainage noted. Left wrist wound with pink granulation tissue at base, minimal slough. Significantly decreased in size from last week. 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: R continuity reader lower leg Laterality: Right Type of Debridement: [...] Date Recorded By Document 04/09/22 13:30 AK [id number] 04/09/22 13:42 AK Document 04/16/22 14:11 AK [id number] 04/16/22 14:21 AK Document 04/23/22 14:03 NE [id number] 04/23/22 14:17 NE 04/09/22 04/16/22 04/23/22 13:30 14:11 14:03 - Today's Visit Information Type of service Initial Visit Follow-up Visit Follow-up Visit (Physician/PATTERNMAKER HAND (Physician/PATTERNMAKER HAND ) ) Arrival Mode Ambulatory Ambulatory Ambulatory [...] Recorded Date Recorded By Document 04/09/22 13:30 NM [id number] 04/09/22 13:42 AK Document 04/16/22 14:11 NM [id number] 04/16/22 14:21 AK Document 04/23/22 14:03 NE [id number] 04/23/22 14:17 NE 04/09/22 04/16/22 04/23/22 13:30 14:11 14:03 Wound [...] (34-66%) Medium (34-66%) %) -Granulation Quality N/A [place] Red -Slough/Fibrin Yes Yes Yes -Necrosis Amt [...] Present (0 %) %) -Granulation Quality N/A [place] -Slough/Fibrin Yes Yes Yes -Necrosis Amt Large [...] None Present (0 %) %) -Granulation Quality [place] -Slough/Fibrin Yes Yes Yes -Necrosis Amt Large [...] Present (0 %) %) -Granulation Quality N/A [place] -Slough/Fibrin Yes Yes Yes -Necrosis Amt Large [...] Date Recorded By Document 04/09/22 15:12 PL [id number] 04/09/22 15:29 PL Document 04/16/22 15:08 PL [id number] 04/16/22 15:18 PL Document 04/23/22 15:17 PL [id number] 04/23/22 15:26 PL 04/09/22 04/16/22 04/23/22 15:12 [...] part thereof #8 Right Lat Foot -Time 14: 14:25 -Correct Patient Yes Yes [...] Recorded Date Recorded By Document 04/09/22 15:05 NE [id number] 04/09/22 15:16 NE Document 04/16/22 14:59 NM [id number] 04/16/22 15:01 AK Document 04/23/22 14:53 [facility] [id number] 04/23/22 14:57 [facility] 04/09/22 04/16/22 04/23/22 15:05 14:59 14:53 [...] Tape Tape Tape -Other Covering DRSG PER NE RN #2 R ankle cluster -Ulcer Cleansing [...] Secured with Tape -Other Covering DRSG PER NE RN #8 Right Lat Foot -Ulcer Cleansing Rinsed/ Irrigated with Saline -Foul Odor after Cleansing No -Other Dressing SANTYL -Primary Dressing Covered/Secured with Dry Gauze & Roll Gauze, Secured with Tape -Other Covering DRSG PER NE RN #7 Right 1st Toe -Ulcer Cleansing Rinsed/ Irrigated with Saline -Foul Odor after Cleansing No -Other Dressing SANTYL -Primary Dressing Covered/Secured with Dry Gauze & Roll Gauze, Secured with Tape -Other Covering DRSG PER NE RN #6 R Dorsal -Ulcer Cleansing Rinsed/ [...] Matter, Mepilex Border -Other Dressing DRSG PER NE RN -Primary Dressing Covered/Secured with Dry Gauze [...] Tape Tape Tape -Other Covering DRSG PER NE RN Right -Lotion applied to leg before [...] Cosigner Signature (if applicable): CC: ~ Signed [facility] Work Phone: 1(146) 801-939103-10-2023 Progress [facility] April 16, 2022 4:54pm Note Date/Time April 16, 2022 4:0 8pm [facility] [address] [place] [address] Progress Note - Wound Care 04/16/22 1605 MR#: [id number] Acct: [id number] Name: ABELARDO IVORY Rep #:[id number] : 1950 72 From: Tonia ACUNA PCP: Dr. Ezekiel Carrasco MD Status: REG RCR Location: History of Present Illness Date of Service: 04/16/22 Chief Complaint: Left wrist wound Multiple bilateral lower extremity wounds History of Wound: Patient is new to [facility] but known to me from the vascular surgery clinic. 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 Patient was understandably quite ill following this [...] Cannula Charges/Coding Wound Center CF Procedures 96XXX-98XXX: 50590 RMVL DEVITAL TIS 20 CM/< Multi Select Codes Wound Center CF Procedures 96XXX-98XXX: 51994 RMVL DEVITAL TIS 20 CM/< Physical Exam [...] Debridement Note Debridement Note Wound debrided: R continuity reader lower leg Laterality: Right Type of Debridement: [...] Recorded Date Recorded By Document 04/09/22 13:30 NM [id number] 04/09/22 13:42 NM Document 04/16/22 14:11 NM [id number] 04/16/22 14:21 NM 04/09/22 04/16/22 13:30 14:11 - Today's Visit Information Type of service Initial Visit Follow-up Visit (Physician/PATTERNMAKER HAND ) Arrival Mode Ambulatory Ambulatory Transfer Assistance [...] Recorded Date Recorded By Document 04/09/22 13:30 NM [id number] 04/09/22 13:42 AK Document 04/16/22 14:11 NM [id number] 04/16/22 14:21 AK 04/09/22 04/16/22 13:30 14:11 [...] Abnormality Appearance) (Pt Warm) -Tenderness on Palpation (Kristie-wound No Skin Appearance) -Ulcer Cleansing Rinsed/ Irrigated [...] Present (0 Medium (34-66%) %) -Granulation Quality [place] -Slough/Fibrin Yes Yes -Necrosis Amt Large (67-100%) [...] (0 Medium (34-66%) %) -Granulation Quality N/A [place] -Slough/Fibrin Yes Yes -Necrosis Amt Large (67-100%) [...] (0 Medium (34-66%) %) -Granulation Quality N/A [place] -Slough/Fibrin Yes Yes -Necrosis Amt Large (67-100%) [...] (0 Medium (34-66%) %) -Granulation Quality N/A [place] -Slough/Fibrin Yes Yes -Necrosis Amt Large (67-100%) [...] Date Recorded By Document 04/09/22 15:12 PL [id number] 04/09/22 15:29 PL Document 04/16/22 15:08 PL [id number] 04/16/22 15:18 PL 04/09/22 04/16/22 15:12 15:08 [...] Recorded Date Recorded By Document 04/09/22 15:05 NE [id number] 04/09/22 15:16 NE Document 04/16/22 14:59 AK [id number] 04/16/22 15:01 AK 04/09/22 04/16/22 15:05 14:59 [...] in 1 week or sooner as needed. 03/10/23 5814 <Electronically signed by Tonia ACUNA> Cosigner Signature (if applicable): CC: ~ Signed [facility] Work Phone: 1(565) 538-579003-03-2023 History and physical note Author Tnoia Jenkins [facility] April 09, 2022 9:56pm Note Date/Time April 09, 2022 9:12 pm [facility] [address] [place] [address] H&P Exam - Wound Care 04/09/222107 MR#: [id number] Acct: [id number] Name: ABELARDO IVORY Rep #:[id number] : 1950 72 From: Tonia ACUNA PCP: Dr. Ezekiel Carrasco MD Status: REG R Location: History of Present Illness Date of Service: 04/09/22 Chief Complaint: Left wrist wound Multiple bilateral lower extremity wounds History of Wound: Patient is new to [facility] but known to me from the vascular surgery clinic. 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 Patient was understandably quite ill following this [...] does not currently wear compression. [facility] Medical History Abdominal aortic aneurysm (AAA) Anemia Arthritis Atherosclerotic heart disease 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 Bilateral inguinal [...] Debridement Note Debridement Note Wound debrided: R continuity reader lower leg Laterality: Right Type of Debridement: [...] Date Recorded By Document 04/09/22 13:30 LYNETTE [id number] 04/09/22 13:42 LYNETTE 04/09/22 13:30 - Today's [...] Date Recorded By Document 04/09/22 13:30 LYNETTE [id number] 04/09/22 13:42 LYNETTE 04/09/22 13:30 Wound Center Nurse 1 #3 [...] Date Recorded By Document 04/09/22 15:12 PL [id number] 04/09/22 15:29 PL 04/09/22 15:12 Wound Center [...] Is Patient Pain Free? Yes - Nurse 3 - General Ulcer D/C NN Start: 04/09/22 13:29 Freq: Status: Active Protocol: Activity Type Activity Date Activity User E-sign Co-sign Detail Recorded Client Recorded Date Recorded By Document 04/09/22 15:05 NE [id number] 04/09/22 15:16 NE 04/09/22 15:05 Wound Care Center Nurse 3 [...] Pressure Charges/Coding Wound Center CF Procedures 96XXX-98XXX: 40610 RMVL DEVITAL TIS 20 CM/< Multi Select Codes Wound Center CF Procedures 96XXX-98XXX: 82245 RMVL DEVITAL TIS 20 CM/< Assessment/Plan Assessment/Plan [...] 1 week or sooner as needed. 04/09/22 0917 <Electronically signed by Tonia ACUNA> Cosigner Signature (if applicable): CC: ~ Signed [facility] Work Phone: 1(775) 626-728001-26-[address] Banks [facility] March 04, 2022 2:42pm Note Date/Time March 04, 2022 2 :24pm [facility] Medical Records Department [address] [place] [address] Discharge Summary 03/04/22 1423 MR#: [id number] Acct: [id number] Name: ABELARDO IVORY Rep #:[id number] : 1950 72 From: Beatris Banks DO PCP: Dr. Ezekiel Carrasco MD Status: ADM IN Location: [place] [address] Providers Date of Admission: 03/02/22 Date of [...] the medical floor and placed on IV Solu-Phqawo38 every 8, placed on ceftriaxone and azithromycin [...] 78.5 H, Lymph % (Auto) 17.2 L, [place] % (Auto) 3.5, Eos % (Auto) 0.0, [...] Self Care Charges/Coding Visit Charges Inpatient E&M: 21166 Disch Hosp >30min 03/04/22 1442 <Electronically signed by Beatris Banks DO> Cosigner Signature (if applicable): CC: Dr. Noe Suarez MD; Dr. Ezekiel Carrasco MD; Dr. Kwame Alex MD; Dr. Beatris Banks DO~ Signed [facility] Work Phone: 1(750) 708-955201-25-[address] Banks [facility] March 03, 2022 4:12pm Note Date/Time March 03, 2022 4 :12pm [facility] Medical Records Department [address] [place] [address] Progress Note - Hospitalist 03/03/22 1608 MR#: [id number] Acct: [id number] Name: ABELARDO IVORY Rep #:[id number] 07 : 1950 72 From: Beatris Banks DO PCP: Dr. Ezekiel Carrasco MD Status: ADM IN Location: [place] [id number] Subjective Subjective Patient states he is [...] (Auto) 78.5 H, Lymph % (Auto) 19.0, [place] % (Auto) 2.2, Eos % (Auto) 0.0, [...] as able AAA with repair -Repair at [facility] in December 2021 -Continue tobacco [...] no intubation Charges/Coding Visit Charges Inpatient E&M: 58373 Subs Hosp L2 03/03/22 1612 <Electronically signed by Beatris Banks DO> Cosigner Signature (if applicable): CC: ~ Signed [facility] Work Phone: [phone]) 457-533801-24-[address] Garland [facility] March 02, 2022 3:36pm Note Date/Time March 02, 2022 1 0:07am [facility] Medical Records Department [address] [place] [address] Emergency Department Summary 03/02/22 MR#: [id number] Acct: [id number] Name: ABELARDO IVORY Rep #:[id number] 02 : [...] (AAA) Anemia Arthritis Atherosclerotic heart disease 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 Bilateral inguinal [...] % (Auto) 66.7 Lymph % (Auto) 27.6 [place] % (Auto) 5.1 Eos % (Auto) 0.2 [...] rate of 75 no acute signs of GA or ischemia. Discharge Plan Triage Chief Complaint: [...] Provider] - Disposition Disposition: Acute Care Hospital [facility] What to do if you have Problems For any increased pain, shortness of breath, bleeding, nausea or vomiting, chestpain, or any unexpected problems, contact your Primary Care Provider. Call [facility] ([phone]) or report to the closest Emergency Room. Call 911 if necessary. 03/02/22 1536 <Electronically signed by Nhan Garland MD> Cosigner Signature (if applicable): CC: Dr. Ezekiel Carrasco MD ~ Signed [facility] Work Phone: 1(625) 747-568401-24-2023 History and physical note Author Dr. Banks [facility] March 02, 2022 1:08pm Note Date/Time March 02, 2022 1 2:36pm [facility] Medical Records Department [address] [place] [address] H&P Exam - Hospitalist 03/02/22 1233 MR#: [id number] Acct: [id number] Name: ABELARDO IVORY Rep #:[id number] : 1950 72 From: Beatris Banks DO PCP: Dr. Ezekiel Carrasco MD Status: REG ER Location: ED HPI - General General Date of Admission: 03/02/22 Date of Service: 03/02/22 Chief Complaint: Shortness of breath HPI Narrative ABELARDO IVORY, is a 72 M who presented to the emergency department [facility] on 03/02/2022 with a chief complaint [...] started on ceftriaxone and azithromycin. [facility] Medical History Abdominal aortic aneurysm (AAA) Anemia Arthritis Atherosclerotic heart disease 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 Bilateral inguinal [...] % (Auto) 66.7, Lymph % (Auto) 27.6, [place] % (Auto) 5.1, Eos % (Auto) 0.2, [...] as able AAA with repair -Repair at [facility] Main havre de grace in December 2021 -Continue tobacco cessation -Continue [...] no intubation Charges/Coding Visit Charges Inpatient E&M: 66064 Init Hosp L3 03/02/22 1306 <Electronically signed by Beatris Banks DO> Cosigner Signature (if applicable): CC: Dr. Ezekiel Carrasco MD; Dr. Beatris Banks DO~ Signed [facility] Work Phone: 1(123) 139-395901-24-2023 History and physical note Author Dr. Banks [facility] March 02, 2022 1:08pm Note Date/Time March 02, 2022 1 2:36pm [facility] Medical Records Department [address] [place] [address] H&P Exam - Hospitalist 03/02/22 1233 MR#: [id number] Acct: [id number] Name: ABELARDO IVORY Rep #:[id number] : 1950 72 From: Beatris Banks DO PCP: Dr. Ezekiel Carrasco MD Status: ADM IN Location: [facility] [id number] HPI - General General Date of Admission: 03/02/22 Date of Service: 03/02/22 Chief Complaint: Shortness of breath HPI Narrative ABELARDO IVORY, is a 72 M who presented to the emergency department [facility] on 03/02/2022 with a chief complaint [...] started on ceftriaxone and azithromycin. [facility] Medical History Abdominal aortic aneurysm (AAA) Anemia Arthritis Atherosclerotic heart disease 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 Bilateral inguinal [...] % (Auto) 66.7, Lymph % (Auto) 27.6, [place] % (Auto) 5.1, Eos % (Auto) 0.2, [...] as able AAA with repair -Repair at [facility] Main havre de grace in December 2021 -Continue tobacco cessation -Continue [...] no intubation Charges/Coding Visit Charges Inpatient E&M: 17343 Init Hosp L3 03/02/22 1308 <Electronically signed by Beatris Banks DO> Cosigner Signature (if applicable): CC: Dr. Ezekiel Carrasco MD; Dr. Beatris Banks DO~ Signed [facility] Work Phone: 1(434) 218-696701-24-[address] Garland [facility] March 02, 2022 3:36pm Note Date/Time March 02, 2022 1 0:07am [facility] Medical Records Department [address] [place] [address] Emergency Department Summary 03/02/22 MR#: [id number] Acct: [id number] Name: ABELARDO IVORY Rep #:[id number] : [...] (AAA) Anemia Arthritis Atherosclerotic heart disease 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 Bilateral inguinal [...] % (Auto) 66.7 Lymph % (Auto) 27.6 [place] % (Auto) 5.1 Eos % (Auto) 0.2 [...] rate of 75 no acute signs of GA or ischemia. Discharge Plan Triage Chief Complaint: [...] Provider] - Disposition Disposition: Acute Care Hospital [facility] What to do if you have Problems For any increased pain, shortness of breath, bleeding, nausea or vomiting, chestpain, or any unexpected problems, contact your Primary Care Provider. Call [facility] ([phone]) or report to the closest Emergency Room. Call 911 if necessary. 03/02/22 1536 <Electronically signed by Nhan Garland MD> Cosigner Signature (if applicable): CC: Dr. Ezekiel Carrasco MD ~ Signed [facility] Work Phone: 1(625) 682-319712-20-2022 Miscellaneous Notes* Telephone Encounter - Oxana Martines [...] 3 weeks now. Call back number is [phone]. Physician: Holly Byrnes MD [facility] Miscellaneous Notes* Telephone Encounter - Yris Pineda - 01/01/2022 3:02 PM EST Sent Patient out a reminder letter for his appointment in Jan and call no answer left a VM. PSS-MP documented [facility] encounterC[facility] History of Present illness Narrative* Venita Shah APRN.OJ - 12/28/2021 3:24 PM EST Images from the original note were not included. Critical Care Transport Note Patient Name: Abelardo Ivory Service Date: 12/28/21 Referring Physician: Vilma Referring Facility: [facility] Accepting Physician: Fitz Accepting Facility: [facility] SUBJECTIVE/CHIEF COMPLAINT: abdominal pain REASON FOR TRANSPORT: [...] carotid stenosis, and tremor. He presented to [facility] today for evaluation of acute lower [...] managing the patient [facility] for tertiary and/or quaternary services unavailable at the referring facility. The physician managing the patient requested the [facility] Critical [facility] Team transport and treat the patient for the purpose of tertiary care, evaluation, and management of his ruptured aortic aneurysm condition(s). Air medical transport was requested to reduce the [id number], 22 minutes by air vs. approximately 75 [...] SaO2 > 93% - Expedite transport to [facility] for further workup and care The transport was completed without significant incident or change in the patient's status. The patient was [facility] the [facility] by [facility]otor (Helicopter) for tertiary and/or quaternary evaluation and management of his Emergent Medical and Surgical condition(s). Upon arrival to the receiving facility, a [id number] report was given to bedside nursing staff [id number] and bedside medical team . Patient care [...] AAA and the Cardiovascular impairment, Respiratory impairment, PRESS CLEANER impairment, Shock, Cardiac Arrest, and Severe metabolic abnormality which the patient had and/or had a high probability of suddenly developing. SIGNATURE: Venita Shah APRN.CNP Acute Care Nurse Practitioner [facility] Critical [facility] Team documented in this encounterC[facility]11-[facility]-2022 Procedure note* Venita Shah APRN.CNP - [...] PLACEMENT: Sterile PRIMARY PROCEDURALIST: BARRIE De Souza [employer] OPERATIONS MANAGER(S): Abigail Liriano RN PROCEDURE NARRATIVE Site Marked: [...] Abelardo Ivory DATE: 12/28/21 documented in this encounterC[facility] History of Past illness Narrative* Problem [...] of this encounter (statuses as of 05/11/2021) [facility] History of Past illness Narrative* Problem [...] of this encounter (statuses as of 12/28/2021) [facility] History of Past illness Narrative* Problem [...] of this encounter (statuses as of 01/01/2022) [facility] History of Past illness Narrative* Problem [...] of this encounter (statuses as of 01/01/2022) [facility] History of Past illness Narrative* Problem [...] of this encounter (statuses as of 01/26/2022) [facility] History of Past illness Narrative* Problem [...] of this encounter (statuses as of 02/09/2022) [facility] Evaluation note* Diagnosis Onset Date Resolution Status Abdominal aortic aneurysm (AAA) chronic Essential hypertension chron ic H/O coronary artery bypass surgery February 12, 2019 chronic History of aortic valve replacement February 12, 2019 chronic Hyperlipidemia [facility] Work Phone: 1(460) 169-584901-06-2020 Evaluation note* Diagnosis Onset Date Resolution Status Kidney disease acute Abdominal aortic aneurysm (AAA) chronic Essential hypertension chron ic H/O coronary artery bypass surgery February 12, 2019 chronic History of aortic valve replacement February 12, 2019 chronic Hyperlipidemia [facility] Work Phone: 1(743) 364-911901-06-2020 Evaluation note* Diagnosis Onset Date Resolution Status Kidney disease acute Abdominal aortic aneurysm (AAA) chronic Essential hypertension chron ic H/O coronary artery bypass surgery February 12, 2019 chronic History of aortic valve replacement February 12, 2019 chronic Hyperlipidemia chronic Acute respiratory failure with hypoxia acute Hypoxia acute Pleural effusion acute Pneumonia acute Chronic kidney insufficiency chronic COPD exacerbation chronic [facility] Work Phone: 1(969) 767-270101-06-2020 Evaluation note* Diagnosis Onset Date Resolution Status Kidney disease acute Abdominal aortic aneurysm (AAA) chronic Essential hypertension chron ic H/O coronary artery bypass surgery February 12, 2019 chronic History of aortic valve replacement February 12, 2019 chronic Hyperlipidemia chronic Hypoxia acute Pneumonia acute Acute respiratory failure with hypoxia resolved COPD exacerbation resolved [facility] Work Phone: 1(190) 607-388001-06-2020 Evaluation note* Diagnosis Onset Date Resolution Status [...] (AAA) chronic 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 Essential hypertension chron ic History of aortic valve replacement February 12, 2019 chronic Hyperlipidemia chronic Kidney disease [facility] Work Phone: 1(242) 140-132701-06-2020 Evaluation note* Diagnosis Onset Date Resolution Status [...] (AAA) chronic 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 Essential hypertension chron ic History of aortic valve replacement February 12, 2019 chronic Hyperlipidemia chronic Kidney disease chronic Lower extremity edema acute Abdominal aortic aneurysm (AAA) chronic 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 Essential hypertension chron ic History of aortic valve replacement February 12, 2019 chronic Hyperlipidemia chronic Kidney disease chronic Hypoxia acute COPD (chronic obstructive pulmonary disease) chronic Secondary pulmonary arterial hypertension chronic Tobacco dependence chronic Abdominal aortic aneurysm (AAA) [facility] Work Phone: 1(297) 295-856101-06-2020 Evaluation note* Diagnosis Onset Date Resolution Status [...] (AAA) chronic 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 Essential hypertension chron ic History of aortic valve replacement February 12, 2019 chronic Hyperlipidemia chronic Kidney disease chronic Lower extremity edema acute Abdominal aortic aneurysm (AAA) chronic 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 Essential hypertension chron ic History of aortic valve replacement February 12, 2019 chronic Hyperlipidemia chronic Kidney disease chronic Hypoxia acute COPD (chronic obstructive pulmonary disease) chronic Secondary pulmonary arterial hypertension chronic Tobacco dependence chronic Abdominal aortic aneurysm (AAA) chronic 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 acute [id number] acute Wound of left upper extremity acute [facility] Work Phone: Consult note Author Kamlesh Friend [facility] Note Date/Time November 07, 2024 8: 08pm [facility] Medical Records Department [facility] [place] [address] [address] [address] Consultation - GI 11/07/242005 MR#: [id number] Acct: [id number] Name: ABELARDO IVORY Rep #:[id number] : 1950 74 From: Kamlesh Floyd DO PCP: Dr. Padmini Carrasco MD Status :[facility] Location: [place] [address] HPI Consult Data Date of Consult: 11/07/24 HPI Narrative Reason for Consultation: GI bleed HPI Narrative: ABELARDO IVORY, is a 74 M who presents to the emergency room with multiple episodes of abdominal pain followed by lower GI bleeding. He underwent a transurethral bladder resection on 06/27/[address] Winston for concerns of a bladder mass. He states that he will be starting chemo treatments soon at [facility]. Patient has a history of aortic stenosis diagnosed in 2012. Patient underwent coronary angiography which revealed 80% stenosis in the RCA and patient was referred to [facility] for aortic valve and RCA revascularization. Patient underwent AVR plus CABG x 1 (Perimount #23, SVG [facility]2019). Patient did well postoperatively with echocardiogram demonstrating preserved ejection fraction, normally functioning prosthetic aortic valve with peak gradient 25 mmHg and mean gradient of 13 mmHg. Patient was diagnosed with an abdominal aortic aneurysm and was sent to [place] for an opinion. It was noted to [...] of aneurysm leak. Patient was transferred to [facility] facility and on 12/28/2021 patient proceeded with thoracoretroperitoneal ruptured juxtarenal abdominal aortic aneurysm repair. I was called to see him due to the fact that he had multiple episodes of lower GI bleeding. His initial hemoglobin was 9.3. He dropped down to 7.1. He did get transfused 1 unit of packed red blood cells. He had a CT angiography to look at his aortic aneurysm but it did not show any signs of bleeding from the aneurysm. I did show some thickening in his rectosigmoid colon in his duodenum. 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 Intention tremor Carotid stenosis, bilateral Hyperlipidemia Nonrheumatic aortic (valve) stenosis Essential hypertension Tobacco dependence Bilateral inguinal hernia Left carotid bruit Abdominal aortic aneurysm (AAA) Anemia Subcutaneous mass of back PUD (peptic ulcer disease) Cough Arthritis Home Medications ?Medication ?Instructions ?Recorded ?Last Taken ?Type aspirin 81 mg tablet,delayed 81 mg PO DAILY heart heal th 03/02/22 01/12/24 History release rosuvastatin 5 mg tablet (Crestor) 5 mg PO DAILY uzma sterol 03/02/22 03/02/22 History amlodipine 5 mg tablet 5 mg PO DAILY #30 tabs 02/28 Unknown Rx cholecalciferol (vitamin D3) 25 25 mcg PO DAILY Unknown History mcg (1,000 unit) capsule metoprolol tartrate 25 mg tablet 12.5 mg (1/2 x 25 mg) PO BID #90 03/22/24 06/27/24 05:30 Rx tabs acetaminophen 500 mg capsule 1,000 mg PO Q6H PRN pain 06/13/24 Unknown History fluticasone fur. 200 mcg-umeclid 1 inh inhalation RUFINA Y PRN SOB 06/13/24 Unknown History 62.5 mcg-vilant 25 mcg inhalat.powder (Trelegy Ellipta) Allergy/AdvReac Type Severity Reaction Status Date / Time No Known Allergies Allergy Verified 11/07/24 15:31 Family History Sister Asthma Mother Arthritis Diabetes Brother Cancer Unsure what kind- just a lump on his neck Surgical History Neoplasm of bladder Hx of inguinal hernia repair S/P inguinal [...] week seatbelt use: always ROS Constitutional Constitutional: Denies fatigue, fever(s), poor appetite, weight gain or weight loss Gastrointestinal Gastrointestinal: Denies belching, bloating, change in bowel habits, change in stool character, chewing difficulty, coffee ground emesis, constipation, cramping, diarrhea, dyspepsia, dysphagia, early satiety, excessive flatus, fecalincontinence, heartburn, hematemesis, hematochezia, hemorrhoids, loose stools, melena, nausea, odynophagia, rectal bleeding, tenesmus, vomiting or weight changes Physical Exam Const alert, oriented x3, no apparent distress and healthy appearing General Appearance: cooperative GI normal to inspection, nondistended, normoactive bowel sounds, soft to palpation,non-tender and non-distended Percussion: normal to percussion Rectal Exam: deferred Lab / Micro Data 11/07/24 17:57 11/07/24 15:55 Labs: Laboratory Results - last 24 hr 11/07/24 15:55: WBC 10.8, RBC 3.01 L, Hgb 9.1 L, Hct 29.2 L, MCV 97.0 H, MCH 30.2, MCHC 31.2 L, RDW Std Deviation 55.2 H, RDW Coeff of Manjit 15.6 H, Plt Count 229, MPV 8.9, Immature Gran % (Auto) 0.700, Neut % (Auto) 76.0 H, Lymph % (Auto)11.8 L, [place] % (Auto) 9.8, Eos % (Auto) 1.1, Baso % (Auto) 0.6, Absolute Neuts (auto) 8.2 H, Absolute Lymphs (auto) 1.27, Nucleated RBC % 0, Sodium 141, Potassium 5.3 H, Chloride 106, Carbon Dioxide 22.6, Anion Gap 12, BUN 47 H, Creatinine 2.09 H, Est GFR (MDRD) Non-Af 33 L, BUN/Creatinine Ratio 22.4 H, Glucose 139 H, Lactic Acid 2.2 H*, Calcium 8.3, Total Bilirubin 0.15, AST 14, ALT9, Alkaline Phosphatase 68, Total Protein 5.7 L, Albumin 3.3 L, Globulin 2.4, Albumin/Globulin Ratio 1.4, Lipase 43 11/07/24 17:26: Urine Color Straw, Urine Clarity Cloudy, Urine pH 6.0, Ur Specific [place] 1.015, Urine Protein 100 H, Urine Glucose (UA) Normal, Urine Ketones Negative, Urine Occult Blood 50 H, Urine Nitrite Negative, Urine Bilirubin Negative, Urine Urobilinogen Normal, Ur Leukocyte Esterase 500 H, Urine RBC 5-10 SEEN, Urine WBC >100 SEEN, Ur Squamous Epith Cells 0-5 SEEN, Ur Transition Epith Cell 0-5 SEEN, Urine Bacteria 2+, Urine Mucus 0 SEEN 11/07/24 17:57: Hgb 7.8 L, Troponin T High Sens 16 11/07/24 18:30: PT 14.5, INR 1.1, APTT 26.5 11/07/24 18:40: Blood Type A POSITIVE, Antibody Screen NEGATIVE, Crossmatch See Detail 11/07/24 18:40: Crossmatch See Detail Micro: Microbiology 11/07/24 15:45 Stool Stool Occult Blood (ASIF) - Final Occult Blood Positive Imaging Radiology Impression Abdomen/Pelvis CTA 11/07/24 15:42 IMPRESSION: 1. No CT evidence for active gastrointestinal hemorrhage. 2. Mild wall thickening and inflammatory changes involving the proximal duodenum, and distal rectosigmoid colon suggestive of enterocolitis. Nonspecific diarrheal illness with fluid in the colon. 3. Marked wall thickening of the bladder with surrounding inflammatory fat stranding, may be infectious/inflammatory or related to known neoplasm. Possibly treatment related change. 4. Similar mild left hydroureteronephrosis. Evidence of left ureteritis/pyelitis. 5. Stable appearance of irregular diffuse fusiform aneurysmal dilatation of the infrarenal abdominal aorta and bilateral common iliac arteries, with eccentric noncalcified plaque/mural thrombus. Reading Location: [facility] Chest X-Ray 11/07/24 18:53 IMPRESSION: No focal consolidation. Extensive pulmonary emphysema. Reading Location: [facility] Assessment & Plan Assessment/Plan (1) GI bleed: PLAN: Differential diagnosis for the lower GI bleed would be radiation-induced proctitis, diverticular bleed, angiodysplasia, aortic enteric fistula with bleeding. He will undergo colonoscopy and possible upper endoscopy. He was explained alternatives, risk and benefits could not withstand bleeding, infection, sepsis, perforation, need for emergent urgent . He will have anASA of 3. Charges/Coding Visit Charges Inpatient E&M: 73965 Init Hosp L3 11/07/242007 <Electronically signed by Kamlesh Floyd DO> Cosigner Signature (if applicable): CC: Dr. Padmini Carrasco MD; Kamlesh Floyd DO~ Signed [facility] Work Phone: Consult note Author Raymond Anthony [facility] Note Date/Time November 07, 2024 8: 14pm [facility] Medical Records Department [address] [place] [id number] Pre-Anesthesia Evaluation 11/07/242002 MR#: [id number] Acct: [id number] Name: ABELARDO IVORY Rep #:[id number] : 1950 74 From: Raymond Spann PCP: Dr. Padmini Carrasco MD Status :[facility] Race: C Location: [place] [address] ASA Classification* ASA Classification ASA Classification: 4 and E Assessment & Plan Anesthesia* Anesthesia Assessment Anesthesia Assessment: Discussed sedation and/or anesthesia options, risks, benefits, and alternatives with patient/parents/legal guardian/POA. Questions invited. The patient/parents/legal guardian/POA seems to understand and agrees to proceedwith anesthesia plan. Reviewed the physical assessment, medical history, allergy history and patient home medications list prior to surgery/procedure/anesthetic and documented any changes. Performed airway and anesthesia risk assessments. Anesthesia Type Anesthesia Type: MAC History Source History Obtained from:: Patient and Chart Anesthesia Focused Assessment* Temperature: 97.6 F Pulse Rate: 78 Blood Pressure: 124/43 Respiratory Rate: 16 Pulse Ox: 98 Oxygen Delivery Method: Nasal Cannula Oxygen Flow Rate (L/min): 2 Airway Assessment Mouth opens: >3 cm Mallampati Score: III Teeth Condition: Dentures and Upper Labs Anesthesia Preop lab: CBC WBC, (4.4-11.0) 10.8 K/mm3 Today, 15:55 RBC, (4.6-6.2) 3.01 M/mm3 L Today, 15:55 Hgb, (13.0-16.5) 7.8 g/dL L Today, 17:57 Hct, (40-54) 29.2 % L Today, 15:55 Plt Count, (150-450) 229 K/mm3 Today, 15:55 CHEMISTRY Potassium, (3.3-5.1) 5.3 mmol/L H Today, 15:55 Sodium, (133-145) 141 mmol/L Today, 15:55 Magnesium, (1.6-2.6) 1.9 mg/dL 03/03/22, 05:36 Phosphorus, (2.5-4.9) 4.9 mg/dL 03/03/22, 05:36 BUN, (4-19) 47 mg/dL H Today, 15:55 Creatinine, (0.70-1.20) 2.09 mg/dL H Today, 15:55 Glucose, (70-99) 139 mg/dL H Today, 15:55 TSH, (0.300-4.200) 3.680 uIU/mL 05/10/24, 15:16 COAG PT, (11.7-14.9) 14.5 SECONDS Today, 18:30 Pre-Assessment Diagnosis/Proposed Procedure Planned Operative Procedure(s): Colonoscopy Anesthesia History 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 When Was Last Pacemaker Check QUESTION #4 FULL TEXT: You/Your Family Experience fever (hyperthermia) with Anesthesia Last Oral Intake Last Oral intake: Last Oral Intake NPO since Meds taken in AM with sips of water? 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 - welding engineer Female HX of Motion Sickness HX of N/V After Surgery Non-Smoker Duration of Surgery greater than 60 minutes Number of Risk Factors PONV Score Height & Weight Height & Weight: Anesthesia: Height & Weight Height 5 ft 6 in 11/07/24 15:32 Weight: 64.4 kg 11/07/24 18:05 Body Mass Index (BMI) 22.8 11/07/24 18:05 Respiratory Assessment Respiratory Assessment - welding engineer: Respiratory Tract Infection Hx - welding engineer Hx Respiratory Tract Infection No 06/15/24 08:41 STOP Sleep Apnea STOP Sleep Apnea - welding engineer: STOP Sleep Apnea - welding engineer Hx Hypertension Yes: CONTROLLED ON MED 06/15/24 08:41 Hx Sleep Apnea No 06/27/24 15:00 CPAP BIPAP Do you snore loudly (louder than talking or can be heard Do you often feel tired/ fatigued/ sleepy during daytime? Has anyone observed you stop breathing during sleep? STOP Results QUESTION #5 FULL TEXT : Do you snore loudly (louder than talking or can be heard through closed doors)? 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 Specify any problems Hx of Preganancy in last 3 Months Nurse Filling Out Transfusion & Questions: Date: Time: Patient unable to answer at this time (ie. confused, unrespo /Reproduction History /Reproductive History - welding engineer: /Reproductive Hx- welding engineer Hx Now Gestational Age (in weeks): EDC: Hx Hx Para Hx Section SAB PFSH Medical History Bladder cancer Wears dentures Wears glasses Bruising Easy bruising High cholesterol Smoker Shortness of breath on exertion History of echocardiogram Cardiology follow-up encounter Stage 3b chronic kidney disease (CKD) Thrombocytopenia Chronic kidney insufficiency Pleural effusion Secondary pulmonary arterial hypertension Atherosclerotic heart disease 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 Intention tremor Carotid stenosis, bilateral Hyperlipidemia Nonrheumatic aortic (valve) stenosis Essential hypertension Tobacco dependence Bilateral inguinal hernia Left carotid bruit Abdominal aortic aneurysm (AAA) Anemia Subcutaneous mass of back PUD (peptic ulcer disease) Cough Arthritis Home Medications ?Medication ?Instructions ?Recorded ?Last Taken ?Type aspirin 81 mg tablet,delayed 81 mg PO DAILY heart heal th 03/02/22 01/12/24 History release rosuvastatin 5 mg tablet (Crestor) 5 mg PO DAILY uzma sterol 03/02/22 03/02/22 History amlodipine 5 mg tablet 5 mg PO DAILY #30 tabs 02/28 Unknown Rx cholecalciferol (vitamin D3) 25 25 mcg PO DAILY Unknown History mcg (1,000 unit) capsule metoprolol tartrate 25 mg tablet 12.5 mg (1/2 x 25 mg) PO BID #90 03/22/24 06/27/24 05:30 Rx tabs acetaminophen 500 mg capsule 1,000 mg PO Q6H PRN pain 06/13/24 Unknown History fluticasone fur. 200 mcg-umeclid 1 inh inhalation RUFINA Y PRN SOB 06/13/24 Unknown History 62.5 mcg-vilant 25 mcg inhalat.powder (Trelegy Ellipta) Allergy/AdvReac Type Severity Reaction Status Date / Time No Known Allergies Allergy Verified 11/07/24 15:31 Family History Sister Asthma Mother Arthritis Diabetes Brother Cancer Unsure what kind- just a lump on his neck Surgical History Neoplasm of bladder Hx of inguinal hernia repair S/P inguinal hernia repair History of cardiac catheterization S/P AAA repair 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) History of left heart catheterization (11/27/18) History of aortic valve replacement (02/12/19) Social History household members: none Smoking Status: Current every day smoker tobacco type: cigarettes quit status: has quit before alcohol intake: never substance use type: does not use caffeine: Yes Type: coffee Number of servings: 3 what type of physical activity do you participate in: other frequency: 3-4 times per week seatbelt use: always Prior Cardiac Testing/Procedures Prior Cardiac Testing/Procedures: Echocardiogram (EF 55%. ) Addt'l Information Additional Findings: Cardiology history reviewed reviewed Review of Systems (Anesthesia) ROS Narrative System reviewed and no additional complaints, except as documented. Physical Exam Const alert, oriented x3 and average body habitus Resp normal respiratory effort and normal air movement Auscultation: clear to auscultation bilaterally Cardio regular rate and regular rhythm Back/Spine normal ROM Neuro oriented x3 and moves all extremities 11/07/242013 <Electronically signed by Raymond Anthony MD> Date _ Raymond Anthony MD Cosigner Signature: Date CC: ~ Signed [facility] Work Phone: Consult note Author Raymond [facility] Note Date/Time November 07, 2024 10 :02pm [facility] Medical Records Department [address] [place] [address] Anesthesia Postop Eval I 11/07/240 MR#: [id number] Acct: [id number] Name: ABELARDO IVORY Rep #:[id number] : 1950 74 From: aRymond Spann PCP: Dr. Padmini Carrasco MD Status :REG SDC Y Race: C Location: ICU ICU03 -1 Anesthesia: Postop Eval I Current Vital Signs Temperature: 36 F Pulse Rate: 72 Blood Pressure: 129/80 Respiratory Rate: 15 Pulse Ox: 100 Oxygen Delivery Method: Venturi Mask Oxygen Flow Rate (L/min): 8 Assessment Airway patent: Yes Spontaneous unlabored respirations: Yes Mental status: Awake and Calm nausea: No Vomiting: No Anesthesia Complication: No Fluid Hydration Crystalloid volume administer (ml): 400 Total IV fluid infused: 400 Progress Note Post-operative progress note: Patient was transported to the ICU. Report given to ICU staff. Patient was HDS on arrival and following commands as well as conversing Anesthesia document: Postop Eval 1 completed: Yes 11/07/242201 <Electronically signed by Raymond Anthony MD> Date _ Raymond Anthony MD Cosigner Signature: Date CC: ~ Signed [facility] Work Phone: Consult note Author Raymond [facility] Note Date/Time November 07, 2024 11 :10pm [facility] Medical Records Department [address] [place] [id number] Anesthesia Postop Eval II 11/07/242202 MR#: [id number] Acct: [id number] Name: ABELARDO IVORY Rep #:[id number] : 1950 74 From: Raymond Spann PCP: Dr. Padmini Carrasco MD Status :REG [facility] Y Race: C Location: ICU ICU - Anesthesia Postop Eval I Sum Postop Eval Completion status Anesthesia document: Postop Eval 1 completed: Yes Anesthesia Postop Eval I Summary Anesthesia Postop Eval I Summary: Anesthesia Postop Eval I: Assessment Summary Airway patent Yes 11/07/24 22:02 Spontaneous unlabored Yes 11/07/24 22:02 respirations Mental status Awake,Calm 11/07/24 22:02 nausea No 11/07/24 22:02 Vomiting No 11/07/24 22:02 Anesthesia Postop Eval I: Fluid Summary Crystalloid volume administer 400 11/07/24 22:02 (ml) Colloids volume administered ( ml) Blood Product volume administered (ml) Total IV fluid infused 400 11/07/24 22:02 Anesthesia Postop Eval I: Summary Notes Anesthesia Complication No 11/07/24 22:02 Anesthesia Complication Comment: Post-operative progress note Patient was 11/07/24 22:02 transported to the ICU. Report given to ICU staff. Patient was HDS on arrival and following commands as well as conversing Anesthesia: Postop Eval II Evaluation Mental status: Awake and Calm Pain Level: 1 nausea: No Vomiting: No Progress Note Post-operative progress note: Patient evaluated in the ICU. HDS. No anesthetic complications Complications Anesthesia Complication: No 11/07/242202 <Electronically signed by Raymond Anthony MD> Date _ Raymond Anthony MD [facility] Signature: Date CC: ~ Signed [facility] Work Phone: Discharge summary Author Suzanne Medley [facility] Note Date/Time November 07, 2024 11 :10pm [facility] Medical Records Department [address] [place] [id number] Discharge Summary 11/07/24 2308 MR#: [id number] Acct: [id number] Name: ABELARDO IVORY Rep #:[id number] : 1950 74 From: Suzanne Medley MD PCP: Dr. Padmini Carrasco MD Status :[facility] Location: ICU ICU03-1 Providers Date of Admission: 11/07/24 Date of Discharge: 11/07/24 Primary Care Physician: Dr. Padmini Carrasco MD Consultations 11/07/24 21:49 Consult: Gastroenterology Routine Consulting Provider: [facility] Reason for Consult: ABLA, GI bleed, hemorrhagic shock. EMERGENT Consult: Yes MD Notified: Yes Date Notified: 11/07/24 Time Notified: 20:17 Method of Notification: ED Physician Initiated Consult: Loan Administrator / Pulmonary Medicine Routine Consulting Provider: Intensivists/Pulmonary Med Reason for Consult: Hemorrhagic shock, ABLA, GI bleed. EMERGENT Consult: No MD Notified: Yes Date Notified: 11/07/24 Time Notified: 20:17 Method of Notification: Text Reason For Visit: HEMORRHAGIC SHOCK, GI BLEED Diagnosis Discharge Diagnosis (1) GI bleed: Status: Acute Code(s): K92.2 - Gastrointestinal hemorrhage, unspecified (2) Hemorrhagic shock: Status: Acute Code(s): R57.8 - Other shock Plan: DISCHARGE DIAGNOSES: #1. Acute Hemorrhagic shock secondary to Acute GI Bleed (Unclear if lower component as entire bowel upper and lower with blood, upper with noted bleeding duodenal crater bleeding lesions s/p heater probe and injection with possible billroth 2 anatomical surgical presentation w/ resultant Acute Blood Loss Anemiawith associated lactic acidosis suspected primary secondary to associated hypovolemia/demand #2. Acute Complicated Urinary Tract Infection with unchanged mild left hydroureteronephrosis with evidence of a left urethritis/pyelitis, unclear organism on transition to tertiary facility #3. Lactic acidosis, Likely secondary to shock as noted #4. Hyperkalemia, mild #5. Bladder cancer s/p TUBR on chemotherapy (10/19/24 last) and radiation (10/22/24 last) following with Dr. Dawkins and Dr. Winston #6. Chronic stable appearing in for abdominal aortic aneurysm, fusiform as wellas bilateral common iliac arteries #7. Valvular heart disease status post AVR #8. CAD, Status post CABG x 1 with SVG to RCA 02/12/2019 CC #9. Chronic Kidney Disease Stage III, unclear subtype or GFR trending (baselinerenal function primarily 1.4-2.6) #10. Hypertension #11. Hyperlipidemia #12. Tobacco Abuse #13. Chronic COPD #14. CODE status: Patient HCPOA notes his daughter and son are his HCPOA and living will is currently in place. DNR-CCA, no intubation. Medications at Discharge Home Medications aspirin 81 mg tablet,delayed release 81 mg PO DAILY heart health 03/02/22 rosuvastatin 5 mg tablet (Crestor) 5 [...] 1 inh inhalation DAILY PRN SOB 06/13/24 Hospital Course Operations None Procedures Blood transfusion, Colonoscopy and EGD Summary of Care Provided Minutes Spent on Discharge: 50 Hospital Course: The patient is a 74 y/o M w/ PMHx: COPD, Bladder Cancer s/p transurethral resection on chemotherapy and [facility] Vavular heart disease status post AVR, CAD status post CABG x 1, CKD stage III unclear subtype per GFR trending, HTN, HLD, Tobacco use, AAA s/p rupture s/p repair who presented to the [facility] ED on 11/07/2024 with significant bright red blood per rectum with his last chemotherapy noted 10/19/2024 in addition to ongoing radiation with last noted 10/22/2024 with significant bright red blood ongoing eventually becoming darker with severe significant ongoing bowel movements foul-smelling in nature with no associated abdominal pain nor any nausea or emesis prompting ED evaluation. Patient did note when he started to have copious bleeding in the ED he did have some mild abdominal cramping. He denies associated lightheadedness/dizziness/dyspnea/chest pain. He notes chronic dysuria and frequency. Workup in the ED included T96.1 Temporal, heart rate 79, BP 83/63, respiratory rate 18, 97% on room air with BP at 1900 decreasing down to 77/60 and then 78/55 with a MAP of 62 improving following PRBC with most recent [id number], heart rate 78, BP 03/02/1972, respiratory rate 16, 98% oxygenation, CBC with WC 10.8, hemoglobin initially 9.1 at 1555 with repeat at 1757 noted to be hemoglobin 7.8, platelet 229 with left shift, unremarkable coags, CMP with potassium 5.3 not noted to be hemolyzed, BUN/creatinine 47/2.09, GFR 33, [id number], lactic acid 2.2, hepatic profile not marked appearing, troponin 16, urine noted to be cloudy, urine protein 100, occult blood 50, negative nitrite, leukocyte esterase 500, urine RBCs 5-10, urine WBCs greater than 100 with 2+ urine bacteria, CTA abdomen and pelvis with and without contrast with no active hemorrhaging although patient with significant active bleed in the ED which had been profuse prompting emergent transition to endoscopy for colonoscopy with , also noted mild wall thickening and inflammatory changes involving the proximal duodenum, distal rectosigmoid colon suggestive of enterocolitis, markedwall thickening of the bladder with surrounding inflammatory fat stranding, similar mild left hydroureteronephrosis with evidence of a left urethritis/pyelitis, stable appearing irregular diffuse fusiform aneurysmal dilatation of the infrarenal abdominal aorta and bilateral common iliac arterieswith eccentric noncalcified plaque/mural thrombus, chest x-ray with no acute cardiopulmonary findings however extensive pulmonary emphysema evident. In the ED patient administered 1 unit PRBC stat given hemorrhagic shock. Patient was evaluated in the endoscopy suite at [facility] on 11/07/2024 and at the time of evaluation, transfer to a tertiary hospital was felt to be in thepatient's best interest due to significant lower GI bleed, hemorrhagic shock, high concern for friability of bowel given ongoing and very recent radiation with high risk for rebleeding. Patient had transitioned from the ED to the endoscopy lab for emergent endoscopy given his hemorrhagic shock thus transfer attempts were not initiated initially in the ED. Discussed case with Dr. Lama agreed that transfer even following endoscopy would be inpatient best interest in order to have IR capabilities if necessary and higher level of care with onsite farm operations manager team should patient decompensate again. Given the need for ongoing medical care, in the interim in the best interest of the patient, will proceed with admission to [facility] ICU following endoscopy and care will be provided here until tertiary facility has an available staffed bed. Patient underwent both upper and lower endoscopies with blood throughout upper and lower thus unclear if lower component as entire bowelupper and lower with blood, upper with noted bleeding duodenal crater bleeding lesions s/p heater probe and injection with possible Billroth II anatomical surgical presentation. Patient was transition from endoscopy to the intensive care unit in [facility] was recontacted and accepted patient to their ICU. The farm operations manager given situation with profuse bleeding during endoscopy noted ongoing although vital signs had stabilized felt patient's safest best interest for immediate air flight to be set up by [facility]. Once airflight was set up and arrive patient was transitioned from [facility] intensive unit care to the [facility] Flight team. Weight / BMI Weight Weight: 144 lb 2.917 oz Body Mass Index (BMI) 23.2 ABG / Lab / Microbiology Data 11/07/24 22:16 11/07/24 15:55 Laboratory: Laboratory Results - last 24 hr 11/07/24 15:55: WBC 10.8, RBC 3.01 L, Hgb 9.1 L, Hct 29.2 L, MCV 97.0 H, MCH 30.2, MCHC 31.2 L, RDW Std Deviation 55.2 H, RDW Coeff of Manjit 15.6 H, Plt Count 229, MPV 8.9, Immature Gran % (Auto) 0.700, Neut % (Auto) 76.0 H, Lymph % (Auto)11.8 L, [place] % (Auto) 9.8, Eos % (Auto) 1.1, Baso % (Auto) 0.6, Absolute Neuts (auto) 8.2 H, Absolute Lymphs (auto) 1.27, Nucleated RBC % 0, Sodium 141, Potassium 5.3 H, Chloride 106, Carbon Dioxide 22.6, Anion Gap 12, BUN 47 H, Creatinine 2.09 H, Est GFR (MDRD) Non-Af 33 L, BUN/Creatinine Ratio 22.4 H, Glucose 139 H, Lactic Acid 2.2 H*, Calcium 8.3, Total Bilirubin 0.15, AST 14, ALT9, Alkaline Phosphatase 68, Total Protein 5.7 L, Albumin 3.3 L, Globulin 2.4, Albumin/Globulin Ratio 1.4, Lipase 43 11/07/24 17:26: Urine Color Straw, Urine Clarity Cloudy, Urine pH 6.0, Ur Specific [place] 1.015, Urine Protein 100 H, Urine Glucose (UA) Normal, Urine Ketones Negative, Urine Occult Blood 50 H, Urine Nitrite Negative, Urine Bilirubin Negative, Urine Urobilinogen Normal, Ur Leukocyte Esterase 500 H, Urine RBC 5-10 SEEN, Urine WBC >100 SEEN, Ur Squamous Epith Cells 0-5 SEEN, Ur Transition Epith Cell 0-5 SEEN, Urine Bacteria 2+, Urine Mucus 0 SEEN 11/07/24 17:57: Hgb 7.8 L, Phosphorus 4.5, Magnesium 2.1, Troponin T High Sens 16 11/07/24 18:30: PT 14.5, INR 1.1, APTT 26.5 11/07/24 18:40: Blood Type A POSITIVE, Antibody Screen NEGATIVE, Crossmatch See Detail 11/07/24 18:40: Crossmatch See Detail 11/07/24 18:40: Crossmatch See Detail 11/07/24 20:15: WBC 8.5, RBC 3.51 L, Hgb 10.6 L, Hct 33.7 L, MCV 96.0 H, MCH 30.2, MCHC 31.5 L, RDW Std Deviation 53.2 H, RDW Coeff of Manjit 15.3 H, Plt Count 156, MPV 8.9, Immature Gran % (Auto) 0.900, Neut % (Auto) 80.9 H, Lymph % (Auto)9.2 L, [place] % (Auto) 8.1, Eos % (Auto) 0.4, Baso % (Auto) 0.5, Absolute Neuts (auto) 6.9, Absolute Lymphs (auto) 0.78 L, Nucleated RBC % 0 11/07/24 22:16: Hgb 10.4 L, Hct 32.8 L Microbiology: Microbiology 11/07/24 15:45 Stool Stool Occult Blood (ASIF) - Final Occult Blood Positive Radiography Diagnostic Testing: Radiology Impression Abdomen/Pelvis CTA 11/07/24 15:42 IMPRESSION: 1. No CT evidence for active gastrointestinal hemorrhage. 2. Mild wall thickening and inflammatory changes involving the proximal duodenum, and distal rectosigmoid colon suggestive of enterocolitis. Nonspecific diarrheal illness with fluid in the colon. 3. Marked wall thickening of the bladder with surrounding inflammatory fat stranding, may be infectious/inflammatory or related to known neoplasm. Possibly treatment related change. 4. Similar mild left hydroureteronephrosis. Evidence of left ureteritis/pyelitis. 5. Stable appearance of irregular diffuse fusiform aneurysmal dilatation of the infrarenal abdominal aorta and bilateral common iliac arteries, with eccentric noncalcified plaque/mural thrombus. Reading Location: [facility] Chest X-Ray 11/07/24 18:53 IMPRESSION: No focal consolidation. Extensive pulmonary emphysema. Reading Location: [id number] D/C Instructions DC O2, CPAP, BIPAP Needs Home O2 Discharge instructions: No Meaningful Use Info Meaningful Use Meaningful Use Diagnoses (Choose all that apply): None applicable Discharge Plan Admission Primary Reason for Your Visit: Acute GI bleed (ulcerated crater lesion duodenum), Hemorrhagic shock Attending Provider: Suzanne Medley Primary Care Provider: Padmini Carrasco Consulting Providers: Derrell Fonseca; Kamlesh Floyd; [place]; Oxana Camar[place]; Minda Foreman; Kaleigh Armstrong; Ritchie uJarez; Noe Suarez; Bernardo Zuñiga; Jatinder Mobley; Howie Araujo; Say Abraham; Namrata Little; Prakash Carr; Bubba Garcia; Jeffery House; Olya Meneses; Geetha Moran; Alexandrea Yap; Chris Jacobson; Alec Delacruz; Andrei Paulson; Juan M Beltran; Ricardo Juarez; Dian Gilbert; Liam Busch; Bowen Barrett; Dianelys Simon; Mckinley Griffin Instructions Print Language: Taiwanese Discharge Orders/Prescriptions Prescriptions: No Action amlodipine 5 mg tablet 5 mg PO DAILY Qty: 30 11RF aspirin 81 mg tablet,delayed release (DR/EC) 81 mg PO DAILY Patient Comments: STOP PER DR. WINSTON PRIOR TO PROCEDURE rosuvastatin [Crestor] 5 mg [...] Follow Up: Padmini Carrasco MD [Primary Care Provider, Family Practice] Disposition Disposition (needs filled in before D/C Order can be placed): Home, Self Care Charges/Coding Multi Select Codes Visit Charges Observation E&M Codin Observ/hosp same date L3 (Discharged via air flight to [facility] to their ICU, admitted same day to stabilize until tertiary acceptance.) 11/07/24 5216 <Electronically signed by Suzanne Medley MD> Cosigner Signature (if applicable): CC: Dr. Suzanne Medley MD; Dr. Padmini Carrasco MD~ Signed [facility] Work Phone: Evaluation noteNo assessment information available [facility] Work Phone: Evaluation note* Diagnosis Abdominal aortic aneurysm (AAA) without rupture, unspecified part- Primary Ed[facility] Diagnosis Ruptured abdominal aortic aneurysm (AAA), unspecified part- [facility] Diagnosis Onset Date Resolution Status Hypoxia acute Pneumonia acute Acute respiratory failure with hypoxia resolved COPD exacerbation resolved Lower extremity edema acute Abdominal aortic aneurysm (AAA) chronic 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 Essential hypertension chron ic History of aortic valve replacement February 12, 2019 chronic Hyperlipidemia chronic Kidney disease chronic Lower extremity edema acute Abdominal aortic aneurysm (AAA) chronic 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 Essential hypertension chron ic History of aortic valve replacement February 12, 2019 chronic Hyperlipidemia chronic Kidney disease chronic Hypoxia acute COPD (chronic obstructive pulmonary disease) chronic Secondary pulmonary arterial hypertension chronic Tobacco dependence chronic Abdominal aortic aneurysm (AAA) chronic 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 acute [id number] acute Wound of left upper extremity acute [facility] Work Phone: Evaluation note* Diagnosis Onset Date Resolution Status Hypoxia acute Pneumonia acute Acute respiratory failure with hypoxia resolved COPD exacerbation resolved Lower extremity edema acute Abdominal aortic aneurysm (AAA) chronic 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 Essential hypertension chron ic History of aortic valve replacement February 12, 2019 chronic Hyperlipidemia chronic Kidney disease chronic Lower extremity edema acute Abdominal aortic aneurysm (AAA) chronic 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 Essential hypertension chron ic History of aortic valve replacement February 12, 2019 chronic Hyperlipidemia chronic Kidney disease chronic Hypoxia acute COPD (chronic obstructive pulmonary disease) chronic Secondary pulmonary arterial hypertension chronic Tobacco dependence chronic Abdominal aortic aneurysm (AAA) chronic 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 acute [id number] acute Wound of left upper extremity acute 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 acute [id number] acute Wound of left upper extremity acute Lower extremity edema acute Abdominal aortic aneurysm (AAA) chronic 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 Essential hypertension chron ic History of aortic valve replacement February 12, 2019 chronic Hyperlipidemia chronic Kidney disease [facility] Work Phone: Evaluation note* Diagnosis Onset Date Resolution Status Hypoxia acute Pneumonia acute Acute respiratory failure with hypoxia resolved COPD exacerbation resolved Lower extremity edema acute Abdominal aortic aneurysm (AAA) chronic 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 Essential hypertension chron ic History of aortic valve replacement February 12, 2019 chronic Hyperlipidemia chronic Kidney disease chronic Lower extremity edema acute Abdominal aortic aneurysm (AAA) chronic 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 Essential hypertension chron ic History of aortic valve replacement February 12, 2019 chronic Hyperlipidemia chronic Kidney disease chronic Hypoxia acute COPD (chronic obstructive pulmonary disease) chronic Secondary pulmonary arterial hypertension chronic Tobacco dependence chronic Abdominal aortic aneurysm (AAA) chronic 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 acute [id number] acute Wound of left upper extremity acute Lower extremity edema acute Abdominal aortic aneurysm (AAA) chronic 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 Essential hypertension chron ic History of aortic valve replacement February 12, 2019 chronic Hyperlipidemia chronic Kidney disease chronic 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 acute [id number] acute Wound of left upper extremity acute [facility] Work Phone: Evaluation note* Diagnosis Onset Date Resolution Status 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 acute [id number] acute Wound of left upper extremity acute Lower extremity edema acute Abdominal aortic aneurysm (AAA) chronic 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 Essential hypertension chron ic History of aortic valve replacement February 12, 2019 chronic Hyperlipidemia chronic Kidney disease chronic 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 acute [id number] acute Wound of left upper extremity acute COPD (chronic obstructive pulmonary disease) chronic Secondary pulmonary arterial hypertension chronic Tobacco dependence [facility] Work Phone: Evaluation note* Diagnosis Onset Date Resolution Status S/P AAA repair chronic COPD (chronic obstructive pulmonary disease) chronic Smoking greater than 40 pack years chronic Abdominal aortic aneurysm (AAA) chronic 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 Essential hypertension chron ic History of aortic valve replacement February 12, 2019 chronic Hyperlipidemia chronic Smoking greater than 40 pack years [facility] Work Phone: Evaluation note* Diagnosis Onset Date Resolution Status COPD (chronic obstructive pulmonary disease) chronic Smoking greater than 40 pack years chronic Abdominal aortic aneurysm (AAA) chronic 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 Essential hypertension chron ic History of aortic valve replacement February 12, 2019 chronic Hyperlipidemia chronic Smoking greater than 40 pack years [facility] Work Phone: Evaluation note* Diagnosis Malignant neoplasm of urinary bladder, unspecified site (HCC) [facility] Diagnosis Malignant neoplasm of urinary bladder, unspecified site (HCC)- Primary Nocturia Hematuria, gross Gross hematuria [facility] Diagnosis Malignant neoplasm of urinary bladder, unspecified site (HCC)- Primary Malignant neoplasm of urinary bladder, unspecified site (HCC) [facility]* Diagnosis Malignant neoplasm of urinary bladder, unspecified site (HCC)- Primary Hematuria, gross Gross hematuria Malignant neoplasm of urinary bladder, unspecified site (HCC) Gross hematuria [facility]* Diagnosis Preop testing- Primary Preoperative examination, unspecified 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knik heart without angina pectoris Essential hypertension Unspecified [...] hematuria * Assessment & Plan Note - ShoulderMarisela otto APRN.CNP - 08/16/2024 10:34 AM EDTAssociated Problem(s): CKD (chronic kidney disease) Assessment: 08/01/2024 BUN/Cr 34/1.54 * Assessment & Plan Note - Marisela Dsouza APRN.CNP - 08/16/2024 10:34 AM EDTAssociated Problem(s): Type 2 diabetes mellitus without complication, without long-term current useof insulin (HCC) Assessment: Diet controlled * Assessment & Plan Note - Marisela Dsouza APRN.CNP - 08/16/2024 10:32 AM EDTAssociated Problem(s): Centrilobular emphysema (HCC) Assessment: Albuterol as needed; Trelegy as scheduled. Patient denies hospitalizations or pneumoniawithin 6 weeks. * Assessment & Plan Note - Marisela Dsouza APRN.CNP - 08/16/2024 10:31 AM EDTAssociated Problem(s): Hyperlipidemia Assessment: taking rosuvastatin 5 mg daily * Assessment & Plan Note - Marisela Dsouza APRN.CNP - 08/16/2024 10:31 AM EDTAssociated Problem(s): Essential hypertension Assessment: taking taking metoprolol; amlodipine * Assessment & Plan Note - Marisela Dsouza APRN.CNP - 08/16/2024 10:30 AM EDTAssociated Problem(s): 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knik heart without angina pectoris Assessment: Followed by [...] the prior echocardiographic exam performed on 09/29/2020 ([place]). Limited study. * Assessment & Plan Note - Marisela Dsouza APRN.CNP - 08/16/2024 7:26 AM EDT Associated Problem(s): Preop testing Assessment : See Note for medical conditions which may affect kirstie-operative course was addressed in visit today. documented in this encounter [facility] note* Diagnosis Preop testing- Primary Preoperative examination, unspecified 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knik heart without angina pectoris Essential hypertension Unspecified [...] Primary Other hydronephrosis documented in this encounter [facility] note* Diagnosis Preop testing- Primary Preoperative examination, unspecified 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knik heart without angina pectoris Essential hypertension Unspecified [...] gross Gross hematuria documented in this encounter [facility] note* Diagnosis Preop testing- Primary Preoperative examination, unspecified 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knik heart without angina pectoris Essential hypertension Unspecified [...] site (HCC)- Primary documented in this encounter [facility] note* Diagnosis Preop testing- Primary Preoperative examination, unspecified 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knik heart without angina pectoris Essential hypertension Unspecified [...] on left Hydroureter [facility]* Diagnosis Preop testing- Primary Preoperative examination, unspecified 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knik heart without angina pectoris Essential hypertension Unspecified [...] of urinary bladder [facility]* Diagnosis Preop testing- Primary Preoperative examination, unspecified 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knik heart without angina pectoris Essential hypertension Unspecified [...] on left Hydroureter [facility]* Diagnosis Preop testing- Primary Preoperative examination, unspecified 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knik heart without angina pectoris Essential hypertension Unspecified [...] (HCC) Other hydronephrosis [facility]* Diagnosis Preop testing- Primary Preoperative examination, unspecified 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knik heart without angina pectoris Essential hypertension Unspecified [...] sites of bladder [facility] Diagnosis Preop testing- Primary Preoperative examination, unspecified 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knik heart without angina pectoris Essential hypertension Unspecified [...] sites of bladder [facility]* Diagnosis Preop testing- Primary Preoperative examination, unspecified 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knik heart without angina pectoris Essential hypertension Unspecified [...] of urinary bladder [facility]* Diagnosis Preop testing- Primary Preoperative examination, unspecified 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knik heart without angina pectoris Essential hypertension Unspecified [...] unspecified site (HCC) [facility]* Diagnosis Preop testing- Primary Preoperative examination, unspecified 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knik heart without angina pectoris Essential hypertension Unspecified [...] of urinary bladder [facility]* Diagnosis Preop testing- Primary Preoperative examination, unspecified 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knik heart without angina pectoris Essential hypertension Unspecified [...] site (HCC)- Primary documented in this encounter [facility] note* Diagnosis Preop testing- Primary Preoperative examination, unspecified 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knik heart without angina pectoris Essential hypertension Unspecified [...] sites of bladder [facility]* Diagnosis Preop testing- Primary Preoperative examination, unspecified 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knik heart without angina pectoris Essential hypertension Unspecified [...] of urinary bladder [facility]* Diagnosis Preop testing- Primary Preoperative examination, unspecified 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knik heart without angina pectoris Essential hypertension Unspecified [...] of urinary bladder [facility] Diagnosis Preop testing- Primary Preoperative examination, unspecified 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knik heart without angina pectoris Essential hypertension Unspecified [...] of urinary bladder [facility] Diagnosis Preop testing- Primary Preoperative examination, unspecified 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knik heart without angina pectoris Essential hypertension Unspecified [...] sites of bladder [facility]* Diagnosis Preop testing- Primary Preoperative examination, unspecified 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knik heart without angina pectoris Essential hypertension Unspecified [...] neoplasm of prostate [facility]* Diagnosis Preop testing- Primary Preoperative examination, unspecified 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knik heart without angina pectoris Essential hypertension Unspecified [...] sites of bladder [facility]* Diagnosis Preop testing- Primary Preoperative examination, unspecified 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knik heart without angina pectoris Essential hypertension Unspecified [...] sites of bladder [facility] Diagnosis Preop testing- Primary Preoperative examination, unspecified 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knik heart without angina pectoris Essential hypertension Unspecified [...] of urinary bladder [facility] Diagnosis Preop testing- Primary Preoperative examination, unspecified 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knik heart without angina pectoris Essential hypertension Unspecified [...] site (HCC)- Primary [facility] Author Suzanne Medley [facility] Note Date/Time November 07, 2024 9: 47pm [facility] Medical Records Department [address] [place] [address] H&P Exam - Hospitalist 11/07/242012 MR#: [id number] Acct: [id number] Name: ABELARDO IVORY Rep #:[id number] 22 : 1950 74 From: Suzanne Medley MD PCP: Dr. Padmini Carrasco MD Status :[facility] Location: ICU ICU03-1 HPI - General General Date of Admission: 11/07/24 Date of Service: 11/07/24 Chief Complaint: BRBPR, copious. HPI Narrative The patient is a 74 y/o M w/ PMHx: COPD, Bladder Cancer s/p transurethral resection on chemotherapy and possibly radiation [facility], Vavular heart disease status post AVR, CAD status post CABG x 1, CKD stage III unclear subtype per GFR trending, HTN, HLD, Tobacco use, AAA s/p rupture s/p repair who presents to the [facility] ED on 11/07/2024 with significant bright red blood per rectum with his last chemotherapy noted 10/19/2024 in addition to ongoing radiation with last noted 10/22/2024 with significant bright red blood ongoing eventually becoming darker with severe significant ongoing bowel movements foul-smelling in nature with no associated abdominal pain nor any nausea or emesis prompting ED evaluation. Patient did note when he started to have copious bleeding in the ED he did have some mild abdominal cramping. He denies associated lightheadedness/dizziness/dyspnea/chest pain. He notes chronic dysuria and frequency. Workup in the ED included T96.1 Temporal, heart rate 79, BP 83/63, respiratory rate 18, 97% on room air with BP at 1900 decreasing down to 77/60 and then 78/55 with a MAP of 62 improving following PRBC with most recent [id number], heart rate 78, BP 03/02/1972, respiratory rate 16, 98% oxygenation, CBC with WC 10.8, hemoglobin initially 9.1 at 1555 with repeat at 1757 noted to be hemoglobin 7.8, platelet 229 with left shift, unremarkable coags, CMP with potassium 5.3 not noted to be hemolyzed, BUN/creatinine 47/2.09, GFR 33, [id number], lactic acid 2.2, hepatic profile not marked appearing, troponin 16, urine noted to be cloudy, urine protein 100, occult blood 50, negative nitrite, leukocyte esterase 500, urine RBCs 5-10, urine WBCs greater than 100 with 2+ urine bacteria, CTA abdomen and pelvis with and without contrast with no active hemorrhaging although patient with significant active bleed in the ED which had been profuse prompting emergent transition to endoscopy for colonoscopy with , also noted mild wall thickening and inflammatory changes involving the proximal duodenum, distal rectosigmoid colon suggestive of enterocolitis, markedwall thickening of the bladder with surrounding inflammatory fat stranding, similar mild left hydroureteronephrosis with evidence of a left urethritis/pyelitis, stable appearing irregular diffuse fusiform aneurysmal dilatation of the infrarenal abdominal aorta and bilateral common iliac arterieswith eccentric noncalcified plaque/mural thrombus, chest x-ray with no acute cardiopulmonary findings however extensive pulmonary emphysema evident. In the ED patient administered 1 unit PRBC stat given hemorrhagic shock. Patient was evaluated in the endoscopy suite at [facility] on 11/07/2024 and at the time of evaluation, transfer to a tertiary hospital was felt to be in the patient's best interest due to significant lower GI bleed, hemorrhagic shock, high concern for friability of bowel given ongoing and very recent radiation with high risk for rebleeding. Patient had transitioned from the ED to the endoscopy lab for emergent endoscopy given his hemorrhagic shock thus transfer attempts were not initiated initially in the ED. Discussed case with Dr. Floyd who agreed that transfer even following endoscopy would be inpatient best interest in order to have IR capabilities if necessary and higherlevel of care with onsite farm operations manager team should patient decompensate again. Given the need for ongoing medical care, in the interim in the best interest of the patient, will proceed with admission to [facility] ICU following endoscopy and care will be provided here until tertiary facility has an available staffed bed. Pt and/or family are aware of the transfer, the reasoning behind the need for transfer, and that until a staffed bed becomes available, we will provide evidence-based care to the best of our abilities, with the limitations of care here being fully addressed. Discussed this plan ofcare with the patient and the family and did contact per discussion with Dr. Floyd [facility] as initial and they at this time are requesting that they be recontacted once the endoscopy is complete to know better where to place the patient. 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 Intention tremor Carotid stenosis, bilateral Hyperlipidemia Nonrheumatic aortic (valve) stenosis Essential hypertension Tobacco dependence Bilateral inguinal hernia Left carotid bruit Abdominal aortic aneurysm (AAA) Anemia Subcutaneous mass of back PUD (peptic ulcer disease) Cough Arthritis Home Medications ?Medication ?Instructions ?Recorded ?Last Taken ?Type aspirin 81 mg tablet,delayed 81 mg PO DAILY heart heal th 03/02/22 01/12/24 History release rosuvastatin 5 mg tablet (Crestor) 5 mg PO DAILY uzma sterol 03/02/22 03/02/22 History amlodipine 5 mg tablet 5 mg PO DAILY #30 tabs 02/28 Unknown Rx cholecalciferol (vitamin D3) 25 25 mcg PO DAILY Unknown History mcg (1,000 unit) capsule metoprolol tartrate 25 mg tablet 12.5 mg (1/2 x 25 mg) PO BID #90 03/22/24 06/27/24 05:30 Rx tabs acetaminophen 500 mg capsule 1,000 mg PO Q6H PRN pain 06/13/24 Unknown History fluticasone fur. 200 mcg-umeclid 1 inh inhalation RUFINA Y PRN SOB 06/13/24 Unknown History 62.5 mcg-vilant 25 mcg inhalat.powder (Trelegy Ellipta) Allergy/AdvReac Type Severity Reaction Status Date / Time No Known Allergies Allergy Verified 11/07/24 15:31 Family History Sister Asthma Mother Arthritis Diabetes Brother Cancer Unsure what kind- just a lump on his neck Surgical History Neoplasm of bladder Hx of inguinal hernia repair S/P inguinal hernia repair History of cardiac catheterization S/P AAA repair 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) History of left heart catheterization (11/27/18) History of aortic valve replacement (02/12/19) Social History (Updated 11/07/24 @ 20:[address] Suzanne Medley MD) household members: none Smoking Status: Current every day smoker tobacco type: cigarettes Smoking packsper day: 0.25 Smoking cigarettes per day: 5.0 quit status: has quit before alcohol intake: never substance use type: does not use caffeine: Yes Type: coffee Number of servings: 3 what type of physical activity do you participate in: other frequency: 3-4 times per week seatbelt use: always ROS ROS Narrative Admission Review of Systems: CONSTITUTIONAL: No weight loss, fever, chills, + weakness or fatigue. HEENT: Eyes: No visual loss, blurred vision, double vision or yellow sclerae. Ears, Nose, Throat: No hearing loss, sneezing, congestion, runny nose or sore throat. SKIN: No rash or itching, lesions, wounds except + occasional stage ecchymoses, abrasion. CARDIOVASCULAR: No chest pain, chest pressure or chest discomfort, palpitations,edema, orthopnea, syncopal events. RESPIRATORY: No shortness of breath, cough or sputum, wheezing, hemoptysis. GASTROINTESTINAL: + Bright red blood per rectum, copious continued loose stools,mild abdominal cramping. No anorexia, nausea, vomiting or diarrhea, no marked abdominal pain. GENITOURINARY: + Chronic dysuria, frequency. No urgency or retention. NEUROLOGICAL: No headache, dizziness, syncope, paralysis, ataxia, numbness or tingling in the extremities, focal weakness, change in bowel or bladder control,seizure. MUSCULOSKELETAL: + muscle, back pain, joint pain or stiffness. HEMATOLOGIC: + Acute anemia, easy bleeding/bruising. LYMPHATICS: No enlarged nodes. No history of splenectomy. PSYCHIATRIC: No history of depression or anxiety. ENDOCRINOLOGIC: No reports of sweating, cold or heat intolerance. No polyuria orpolydipsia. ALLERGIES: No history of asthma, hives, eczema or rhinitis. Vital Signs Vital Signs Vital Signs: 11/07/24 15:32 11/07/24 15:57 11/07/24 16:35 Temperature 96.1 F L Temperature Source Temporal Pulse Rate 79 79 Respiratory Rate 18 16 Blood Pressure 83/63 L 102/72 132/75 H Blood Pressure Mean 69 82 94 Blood Pressure Source Blood Pressure Position Blood Pressure Location Pulse Ox 97 92 Oxygen Delivery Method Room Air Room Air Oxygen Flow Rate (L/min) 11/07/24 17:00 11/07/24 18:00 11/07/24 18:35 Temperature Temperature Source Pulse Rate 76 110 H 79 Respiratory Rate 30 H 18 Blood Pressure 144/75 H 142/126 H Blood Pressure Mean 98 131 Blood Pressure Source Blood Pressure Position Blood Pressure Location Pulse Ox 99 Oxygen Delivery Method Nasal Cannula Oxygen Flow Rate (L/min) 11/07/24 18:45 11/07/24 18:48 11/07/24 18:54 Temperature 96.6 F L Temperature Source Temporal Pulse Rate 81 77 Respiratory Rate 16 Blood Pressure 128/114 H 77/60 L 78/55 L Blood Pressure Mean 118 65 62 Blood Pressure Source Blood Pressure Position Blood Pressure Location Pulse Ox 92 Oxygen Delivery Method Oxygen Flow Rate (L/min) 11/07/24 19:00 11/07/24 19:00 11/07/24 19:10 Temperature 97.3 F L 97.3 F L 97.3 F L Temperature Source Temporal Temporal Temporal Pulse Rate 76 72 75 Respiratory Rate 22 H 17 20 H Blood Pressure 95/63 112/73 113/71 Blood Pressure Mean 73 86 85 Blood Pressure Source Monitor Blood Pressure Position Blood Pressure Location Pulse Ox 98 97 Oxygen Delivery Method Nasal Cannula Nasal Cannula Oxygen Flow Rate (L/min) 2 11/07/24 19:19 11/07/24 19:37 11/07/24 19:45 Temperature 97.6 F L 97.6 F L Temperature Source Temporal Pulse Rate 74 78 74 Respiratory Rate 16 16 14 Blood Pressure 125/43 H 124/43 H 130/91 H Blood Pressure Mean 70 70 104 Blood Pressure Source Monitor Blood Pressure Position Semi-Fowlers Blood Pressure Location Right Arm Pulse Ox 98 98 100 Oxygen Delivery Method Nasal Cannula Oxygen Flow Rate (L/min) 2 11/07/24 20:10 Temperature 97.6 F L Temperature Source Pulse Rate 78 Respiratory Rate 16 Blood Pressure 124/43 H Blood Pressure Mean Blood Pressure Source Blood Pressure Position Blood Pressure Location Pulse Ox 98 Oxygen Delivery Method Nasal Cannula Oxygen Flow Rate (L/min) 2 Weight Weight: 141 lb 15.643 oz Body Mass Index (BMI) 22.8 Physical Exam Narrative Physical Examination: General: Awake, alert, oriented to self, place and recent events, remains cooperative, laying in the bed in the endoscopy suite, pale appearing, fatigued. Skin: Pale color, normal turgor, no icterus, no cyanosis, occasional stage ecchymoses, abrasion. HEENT: AT/NC, EOMI, PERRLA, moderately dry MM, no carotid bruits or JVD noted. Lungs: Severely diminished, greater bases, mildly increased respiratory rate butno distress, occasional soft end expiratory wheeze, no rales or rhonchi. Heart: Regular rate and rhythm; no gallop, rub audible, status post previous AVR. Abdomen: Soft, NTTP, ND, significant hyperactive BS, no markedly appreciated HSM. Extremities: No cyanosis, no clubbing, no significant distal edema noted. Neurological: Patient awake, alert, oriented as noted, cognitive function currently appears baseline intact; pupils equally reactive to light and accommodation, cranial nerves grossly normal, moving all 4 extremities, no focaldeficits, strength severely globally decreased secondary to acute presentation and underlying comorbidities. Psychiatric: Affect appears flat, fatigued, no acute evidence of depressive or anxiety feelings. Results Lab / Micro Data 11/07/24 20:15 11/07/24 15:55 Labs: Laboratory Results - last 24 hr 11/07/24 15:55: WBC 10.8, RBC 3.01 L, Hgb 9.1 L, Hct 29.2 L, MCV 97.0 H, MCH 30.2, MCHC 31.2 L, RDW Std Deviation 55.2 H, RDW Coeff of Manjit 15.6 H, Plt Count 229, MPV 8.9, Immature Gran % (Auto) 0.700, Neut % (Auto) 76.0 H, Lymph % (Auto)11.8 L, [place] % (Auto) 9.8, Eos % (Auto) 1.1, Baso % (Auto) 0.6, Absolute Neuts (auto) 8.2 H, Absolute Lymphs (auto) 1.27, Nucleated RBC % 0, Sodium 141, Potassium 5.3 H, Chloride 106, Carbon Dioxide 22.6, Anion Gap 12, BUN 47 H, Creatinine 2.09 H, Est GFR (MDRD) Non-Af 33 L, BUN/Creatinine Ratio 22.4 H, Glucose 139 H, Lactic Acid 2.2 H*, Calcium 8.3, Total Bilirubin 0.15, AST 14, ALT9, Alkaline Phosphatase 68, Total Protein 5.7 L, Albumin 3.3 L, Globulin 2.4, Albumin/Globulin Ratio 1.4, Lipase 43 11/07/24 17:26: Urine Color Straw, Urine Clarity Cloudy, Urine pH 6.0, Ur Specific [place] 1.015, Urine Protein 100 H, Urine Glucose (UA) Normal, Urine Ketones Negative, Urine Occult Blood 50 H, Urine Nitrite Negative, Urine Bilirubin Negative, Urine Urobilinogen Normal, Ur Leukocyte Esterase 500 H, Urine RBC 5-10 SEEN, Urine WBC >100 SEEN, Ur Squamous Epith Cells 0-5 SEEN, Ur Transition Epith Cell 0-5 SEEN, Urine Bacteria 2+, Urine Mucus 0 SEEN 11/07/24 17:57: Hgb 7.8 L, Troponin T High Sens 16 11/07/24 18:30: PT 14.5, INR 1.1, APTT 26.5 11/07/24 18:40: Blood Type A POSITIVE, Antibody Screen NEGATIVE, Crossmatch See Detail 11/07/24 18:40: Crossmatch See Detail Micro: Microbiology 11/07/24 15:45 Stool Stool Occult Blood (ASIF) - Final Occult Blood Positive Imaging Radiology Impression Abdomen/Pelvis CTA 11/07/24 15:42 IMPRESSION: 1. No CT evidence for active gastrointestinal hemorrhage. 2. Mild wall thickening and inflammatory changes involving the proximal duodenum, and distal rectosigmoid colon suggestive of enterocolitis. Nonspecific diarrheal illness with fluid in the colon. 3. Marked wall thickening of the bladder with surrounding inflammatory fat stranding, may be infectious/inflammatory or related to known neoplasm. Possibly treatment related change. 4. Similar mild left hydroureteronephrosis. Evidence of left ureteritis/pyelitis. 5. Stable appearance of irregular diffuse fusiform aneurysmal dilatation of the infrarenal abdominal aorta and bilateral common iliac arteries, with eccentric noncalcified plaque/mural thrombus. Reading Location: [facility] Chest X-Ray 11/07/24 18:53 IMPRESSION: No focal consolidation. Extensive pulmonary emphysema. Reading Location: [facility] Assessment & Plan Assessment/Plan (1) GI bleed: (2) Hemorrhagic shock: PLAN: Plan The patient is a 74 y/o M w/ PMHx: COPD, Bladder Cancer s/p transurethral resection on chemotherapy and [facility], Vavular heart disease status post AVR, CAD status post CABG x 1, CKD stage III unclear subtype per GFR trending, HTN, HLD, Tobacco use, AAA s/p rupture s/p repair who presents to the [facility] ED on 11/07/2024 with significant bright red blood per rectum with his last chemotherapy noted 10/19/2024 in addition to ongoing radiation with last noted 10/22/2024 with significant bright red blood ongoing eventually becoming darker with severe significant ongoing bowel movements foul-smelling in nature with no associated abdominal pain nor any nausea or emesis prompting ED evaluation. #1. Acute Hermorrhagic Shock secondary to Acute Lower GI Bleed w/ resultant Acute Blood Loss Anemia with associated lactic acidosis suspected primary secondary to associated hypovolemia/demand: Patient emergently transitioned to endoscopy given severity of bleeding despite CTA with no acute bleed evidence, continue to have copious blood per rectum with MAP less than 65, given significant history concern for friability of bowel also, in addition to fact this is a lower component may require IR potential thus discussed with gastroenterology and will plan to initiate transfer however in the interim whileawaiting a tertiary facility bed, will admit to the ICU, maintain on telemetry monitoring, continue to cycle H&H, continue PRBC administration initiate per ED,hold all antiplatelet therapy, initiate protonix with ongoing NPO status, continue GI consultation, request farm operations manager involvement while awaiting for tertiary facility transfer. #2. Acute Complicated Urinary Tract Infection with unchanged mild left hydroureteronephrosis with evidence of a left urethritis/pyelitis: UA upon ED evaluation remarkable, pending UCx, continue IVFs, monitor I/Os, continue IV Rocephin given no previous cultures notable w/ transition as able pending sensitivities and speciation. #3. Lactic acidosis: Likely secondary to shock as noted, mildly elevated 2.2, continue treatment as noted) per facility protocol if remains at [facility] as transfer is pending. #4. Hyperkalemia, mild: Admission potassium 5.3, not markedly elevated, will continue hydration, repeat CMP in AM if remains at [facility] astransfer is pending. #5. Bladder cancer: Patient with transurethral bladder resection 06/27/[address] Winston, following with [facility] oncology on chemotherapy and radiation with last chemotherapy 10/19/2024 and last radiation 10/22/2024, magnesium and phosphorus levels requested, complicates presentation as noted #2,encourage continued follow-up outpatient with oncology and urology as previouslyarranged. #6. Chronic stable appearing in for abdominal aortic aneurysm, fusiform as wellas bilateral common iliac arteries: Patient with noted 12/28/2021 CT abdomen imaging demonstrating at that time 5 cm infrarenal abdominal aortic aneurysm with adjacent retroperitoneal fluid suggesting of aneurysm leak transferred to [facility] undergoing thoracoretroperitoneal for ruptured juxtarenal abdominal aortic aneurysm repair. Noted on CTA, stable appearing, encourage continued follow-up with vascular surgery as previously arranged. #7. Valvular heart disease: Patient with history of aortic stenosis diagnosed in 2012, status post AVR while also having CABG, most recent ECHO 04/29/2023 demonstrated preserved ejection fraction, no regional wall motion abnormalities,aortic valve with peak gradient 25 mmHg and mean valve gradient 13 mmHg. #8. CAD: Status post CABG x 1 with SVG to RCA 02/12/2019 at [facility], additionally at the same time had AVR, temporally holding antiplatelet therapy, hold metoprolol, continue statin therapy. #9. Chronic Kidney Disease Stage III, unclear subtype or GFR trending: Admission BUN/Cr 47/2.09, GFR 33, baseline renal function primarily 1.4-2.6 but is vacillated, most recently 07/09/2024 creatinine 1.74, repeat BMP in AM. #10. Hypertension: Given presentation with shock as noted, holding all hypertensive regimen, add back once clinically appropriate. #11. Hyperlipidemia: Will continue patient statin therapy. #12. Tobacco Abuse: Encouraged cessation, inpatient consultation per RT, NR if desired. #13. Chronic COPD: Will temporally hold home inhalers and in the interim we will transition to ATC duonebs, PRN albuterol, HOB, IS parameters. Encourage tobacco cessation. #14. DVT prophylaxis: SCDs. #15. CODE status: Patient HCPOA notes his daughter and son are his HCPOA and living will is currently in place. Discussed CODE status at length including difference between FULL code, DNR-CCA and DNR-CC status. Following discussions about the differences in these status, requested DNR-CCA, no intubation. Clarified also if he should still have a heart beat but had respiratory distressand he noted he would not want to be intubation. He does not want any aggressiveinterventions or procedures. Advanced Care Planning Face to Face Time: 16 minutes. Charges/Coding Visit Charges Inpatient E&M: 32211 Init Hosp L3 Procedures Hospitalists Procedures: 80552 Advncd Care Plan 30 Min 11/07/242052 <Electronically signed by Suzanne Medley MD> Cosigner Signature (if applicable): CC: Dr. Suzanne Medley MD; Dr. Padmini Carrasco MD~ Signed ADDENDUM by Dr. Suzanne Medley MD on 11/07/24 at 2147 Addendum Upper and lower scopes performed. Blood in the entire examined colon and also blood in the distal ileum and in the terminal ileum, normal esophagus, red bloodin the entire stomach, spurting duodenal ulcer with a visible vessel with injection/heater probe, widely patent previous surgical anastomosis, characterized by ulceration was found in the duodenum. Contacting [facility] now to initiate transfer. 11/07/242146<Electronically signed by Suzanne Medley MD> Cosigner Signature (if applicable): cc: Dr. Suzanne Medley MD; Dr. Padmini Carrasco MD ~* Signed [facility] Work Phone: Hospital Discharge instructions Additional Instructions Your urine sample [...] with Tylenol and or ibuprofen for pain controlWSalem [facility] Work Phone: Hospital Discharge instructionsAmbulatory Orders* Vascular Location: None Selected [facility] Work Phone: Reason for referral (narrative)* Outpatient Procedure (Routine) - Authorized Specialty Diagnoses / Procedures Referred By Jeff lundberg Referred To Contact [facility] [place] Diagnoses Abdominal aortic aneurysm (AAA) without rupture, unspecified part Edema of abdomen Procedures US ABD AORTA COMPLETE VAS LAB DUP-SCAN AORTA IVC ILIAC VASCL/BPGS COMPLETE Jamin Wilcox MD [id number] [facility] [address] [place] [address] Referral ID Status Reason Start Date Expiration Date Visits Requested Visits Authorized [id number] Authorized Auto-Generat ed Referral 2 01/01/2023 1 1 [facility] for referral (narrative)No reason for referral information availableWSalem Regional Medical Center Work Phone: [place] for visit Narrative* MRI/CT (Routine) - Closed Specialty Diagnoses / Procedures Referred By Jeff lundberg Referred To Contact CT IMAGING Diagnoses Malignant neoplasm of urinary bladder, unspecified site (HCC) Procedures CT CHEST W IVCON DIAGNOSTIC COMPUTED TOMOGRAPHY THORAX W/CONTRAST Codey Christianson MD [address] [place] [address] Phone: tel: fax: [facility] [place] [phone] Referral ID Status Reason Start Date Expiration Date V isits Requested Visits Authorized [id number] Closed Auto-Generate d Referral 07/26/2024 08/25/2025 1 1 [facility] Advance Directives No Advanced Directives Records FoundDocuments on File Type Date Recorded Patient Dental Surgeon Expl anation Advance Directive(s) 02/06/2019 12:13 PM Date Activated Date Inactivated Comments 12/28/2021 2:50 PM 12/28/2021 8:54 PM Question Answer Comments Full Code Order Discussed With: Patient Documents on File Type Date Recorded Patient Dental Surgeon Expl anation Advance Directive(s) 02/08/2019 1:40 PM Advance Directive(s) 02/06/2019 12:13 PM scanned in today Advance Directive(s) 02/06/2019 12:13 PM Advance Directive(s) 01/24/2019 2:53 PM Advance Directive Response Recorded Date/ Time Advance Directives Yes November 27, 2018 7:21am Living Will Yes November 27 7:21am Power of Safety Coordinator Yes November 27, 2018 7:21am Advance Directive Response Recorded Date/ Time Advance Directives Yes November 27, 2018 6:21am Living Will Yes December 28, 2 022 10:34am Power of Safety Coordinator No December 28, 2021 10:34am Latest Code Status on File Code Status Date Activated Date Inactivated Comments Full Code 12/28/2021 2:50 PM 12/28/2021 8:54 PM Full Code Order Discussed With: Patient Documents on File Type Date Recorded Patient Dental Surgeon Expl anation Advance Directive(s) 02/06/2019 12:13 PM Latest Code Status on File Code Status Date Activated Date Inactivated Comments Full Code 12/28/2021 2:50 PM 12/28/2021 8:54 PM Advance Directive Response Recorded Date/ Time Advance Directives Yes November 27, 2018 6:21am Living Will Yes March 02 9:10am Power of Safety Coordinator No March 02, 2022 9:10am Advance Directive Response Recorded Date/ Time Advance Directives Yes November 27, 2018 6:21am Living Will Yes March 02 4:52pm Power of Safety Coordinator No March 02, 2022 4:52pm Advance Directive Response Recorded Date/ Time Advance Directives Yes November 27, 2018 6:21am Living Will No March 22, 5:01pm Power of Safety Coordinator No March 22, 2022 5:01pm Advance Directive Response Recorded Date/ Time Advance Directives Yes November 27, 2018 7:21am Living Will No March 22 6:01pm Power of Safety Coordinator No March 22, 2022 6:01pm Advance Directive Response Recorded Date/ Time Living Will No March 22 6:01pm Do you have a Healthcare Power of Safety Coordinator? No March 22, 2022 6:01pm Living Will Yes January 08 11:15am Do you have a Healthcare Power of Safety Coordinator? Yes January 09, 2024 11:15am Name of Medical Power of Safety Coordinator CANDIE CHADWICK January 09, 2024 11:15am Advance Directives Yes November 27, 2018 7:21am Advance Directive Response Recorded Date/ Time Living Will No March 22 023 6:01pm Do you have a Healthcare Pow er of Safety Coordinator? No March 22, 2022 6:01pm Living Will Yes May 16, 2024 10:19pm Do you have a Healthcare Pow er of Safety Coordinator? Yes May 16, 2024 10:19pm Name of Medical Power of Safety Coordinator jatin Chadwick May 16, 2024 10:19pm Living Will Yes January 08 11:15am Do you have a Healthcare Pow er of Safety Coordinator? Yes January 09, 2024 11:15am Name of Medical Power of Safety Coordinator CANDIE CHADWICK January 09, 2024 11:15am Advance Directives Yes November 27, 2018 7:21am Advance Directive Response Recorded Date/ Time Living Will No March 22 6:01pm Do you have a Healthcare Pow er of Safety Coordinator? No March 22, 2022 6:01pm Advance Directives Yes June 15, 2024 8:41am Living Will Yes May 16, 2024 10:19pm Do you have a Healthcare Pow er of Safety Coordinator? Yes May 16, 2024 10:19pm Name of Medical Power of Safety Coordinator jatin Chadwick May 16, 2024 10:19pm Advance Directive Response Recorded Date/ Time Living Will No March 22 6:01pm Do you have a Healthcare Pow er of Safety Coordinator? No March 22, 2022 6:01pm Advance Directives Yes June 15, 2024 8:41am Living Will Yes May 16, 2024 10:19pm Do you have a Healthcare Pow er of Safety Coordinator? Yes May 16, 2024 10:19pm Name of Medical Power of Safety Coordinator daughter Candie Chadwick May 16, 2024 10:19pm Do you have a Healthcare Pow er of Safety Coordinator? No June 13, 2024 10:26am Advance Directive Response Recorded Date/ Time Living Will No March 22, 023 6:01pm Do you have a Healthcare Pow er of Safety Coordinator? No March 22, 2022 6:01pm Advance Directives Yes June 15, 2024 8:41am Living Will Yes May 16, 2024 10:19pm Do you have a Healthcare Pow er of Safety Coordinator? Yes May 16, 2024 10:19pm Name of Medical Power of Safety Coordinator daughter Candie Chadwick May 16, 2024 10:19pm Do you have a Healthcare Pow er of Safety Coordinator? No June 27, 2024 3:48pm Date Activated Date Inactivated Comments 12/28/2021 2:50 PM 12/28/2021 8:54 PM Question Answer Comments Full Code Order Discussed With: Patient Advance Directive Response Recorded Date/ Time Advance Directives Yes June 15, 2024 8:41am Living Will Yes May 16, 2024 10:19pm Do you have a Healthcare Pow er of Safety Coordinator? Yes May 16, 2024 10:19pm Name of Medical Power of Safety Coordinator daughter Candie Chadwick May 16, 2024 10:19pm Do you have a Healthcare Pow er of Safety Coordinator? No June 27, 2024 3:48pm Advance Directive Response Recorded Date/ Time Advance Directives Yes June 15, 2024 8:41am Do you have a Healthcare Power of Safety Coordinator? No June 27, 2024 3:48pm Advance Directive Response Recorded Date/ Time Do you have a Healthcare Power of Safety Coordinator? Yes November 07, 2024 10:08pm Name of Medical Power of Safety Coordinator Kary November 07, 2024 10:08pm Advance Directives Yes June 15, 2024 8:41am Chief Complaint and Reason for Visit Chief [...] RLL CAP RLL CHF EVERYTHING CHF per COUNTER STITCHER /L.Lorson Reason for Visit Abdominal aortic ane urysm (AAA) Essential hypertension H/O coronary artery bypass surgery History of aortic valve replacement Hyperlipidemia Kidney disease Hypoxia Pneumonia Acute respiratory failure with hypoxia COPD exacerbation Lower extremity edema Abdominal aortic aneurysm (AAA) Atherosclerotic heart disease 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 Essential hypertension History of aortic valve replacement Hyperlipidemia Kidney disease Chief Complaint ABD 6 M FU E ORDERS/2 ORDERING DOCTORS EORDER RUPTURED ABDOMINAL AORTIC ANEURYSM/RX HERE CAP RLL Shortness of breath CAP RLL CAP RLL CHF EVERYTHING CHF per COUNTER STITCHER /L.Lorson EORDER PER [facility] F/U BILAT LOWER PAIN Amb Documentation EORDER Reason for Visit Abdominal aortic ane urysm (AAA) Essential hypertension H/O coronary artery bypass surgery History of aortic valve replacement Hyperlipidemia Kidney disease Hypoxia Pneumonia Acute respiratory failure with hypoxia COPD exacerbation Lower extremity edema Abdominal aortic aneurysm (AAA) Atherosclerotic heart disease 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 Essential hypertension History of aortic valve replacement Hyperlipidemia Kidney disease Lower extremity edema Abdominal aortic aneurysm (AAA) Atherosclerotic heart disease 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 Essential hypertension History of aortic valve replacement Hyperlipidemia Kidney disease Hypoxia COPD (chronic obstructive pulmonary disease) Secondary pulmonary arterial hypertension Tobacco dependence Abdominal aortic aneurysm (AAA) Chief Complaint ABD 6 M FU E ORDERS/2 ORDERING DOCTORS EORDER RUPTURED ABDOMINAL AORTIC ANEURYSM/RX HERE CAP RLL Shortness of breath CAP RLL CAP RLL CHF EVERYTHING CHF per COUNTER STITCHER /L.Lorson EORDER PER [facility] F/U BILAT LOWER PAIN Amb Documentation EORDER FOOT PAIN wound wound Reason for Visit Abdominal aortic ane urysm (AAA) Essential hypertension H/O coronary artery bypass surgery History of aortic valve replacement Hyperlipidemia Kidney disease Hypoxia Pneumonia Acute respiratory failure with hypoxia COPD exacerbation Lower extremity edema Abdominal aortic aneurysm (AAA) Atherosclerotic heart disease 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 Essential hypertension History of aortic valve replacement Hyperlipidemia Kidney disease Lower extremity edema Abdominal aortic aneurysm (AAA) Atherosclerotic heart disease 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 Essential hypertension History of aortic valve replacement Hyperlipidemia Kidney disease Hypoxia COPD (chronic obstructive pulmonary disease) Secondary pulmonary arterial hypertension Tobacco dependence Abdominal aortic aneurysm (AAA) 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 [id number] Wound of left upper extremity Chief Complaint EORDER RUPTURED ABDOMINAL AORTIC ANEURYSM/RX HERE CAP RLL Shortness of breath CAP RLL CAP RLL CHF EVERYTHING CHF per COUNTER STITCHER /L.Lorson EORDER PER [facility] F/U BILAT LOWER PAIN Amb Documentation EORDER FOOT PAIN wound wound wound wound J44.9 - Chronic obstructive pulmonary disease, uns J44.9 - Chronic obstructive pulmonary disease, uns wound wound Reason for Visit Hypoxia Pneumonia Acute respiratory failure with hypoxia COPD exacerbation Lower extremity edema Abdominal aortic aneurysm (AAA) Atherosclerotic heart disease 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 Essential hypertension History of aortic valve replacement Hyperlipidemia Kidney disease Lower extremity edema Abdominal aortic aneurysm (AAA) Atherosclerotic heart disease 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 Essential hypertension History of aortic valve replacement Hyperlipidemia Kidney disease Hypoxia COPD (chronic obstructive pulmonary disease) Secondary pulmonary arterial hypertension Tobacco dependence Abdominal aortic aneurysm (AAA) 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 [id number] Wound of left upper extremity Chief Complaint EORDER RUPTURED ABDOMINAL AORTIC ANEURYSM/RX HERE CAP RLL Shortness of breath CAP RLL CAP RLL CHF EVERYTHING CHF per COUNTER STITCHER /L.Lorson EORDER PER [facility] F/U BILAT LOWER PAIN Amb Documentation EORDER [...] aortic aneurysm (AAA) Atherosclerotic heart disease 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 Essential hypertension History of aortic valve replacement Hyperlipidemia Kidney disease Lower extremity edema Abdominal aortic aneurysm (AAA) Atherosclerotic heart disease 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 Essential hypertension History of aortic valve replacement Hyperlipidemia Kidney disease Hypoxia COPD (chronic obstructive pulmonary disease) Secondary pulmonary arterial hypertension Tobacco dependence Abdominal aortic aneurysm (AAA) 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 [id number] Wound of left upper extremity 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 [id number] Wound of left upper extremity Lower extremity edema Abdominal aortic aneurysm (AAA) Atherosclerotic heart disease 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 Essential hypertension History of aortic valve replacement Hyperlipidemia Kidney disease Chief Complaint EORDER RUPTURED ABDOMINAL AORTIC ANEURYSM/RX HERE CAP RLL Shortness of breath CAP RLL CAP RLL CHF EVERYTHING CHF per COUNTER STITCHER /Freida EORDER PER [facility] F/U BILAT LOWER PAIN Amb Documentation EORDER [...] aortic aneurysm (AAA) Atherosclerotic heart disease 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 Essential hypertension History of aortic valve replacement Hyperlipidemia Kidney disease Lower extremity edema Abdominal aortic aneurysm (AAA) Atherosclerotic heart disease 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 Essential hypertension History of aortic valve replacement Hyperlipidemia Kidney disease Hypoxia COPD (chronic obstructive pulmonary disease) Secondary pulmonary arterial hypertension Tobacco dependence Abdominal aortic aneurysm (AAA) 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 [id number] Wound of left upper extremity Lower extremity edema Abdominal aortic aneurysm (AAA) Atherosclerotic heart disease 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 Essential hypertension History of aortic valve replacement Hyperlipidemia Kidney disease 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 [id number] Wound of left upper extremity Chief Complaint RUPTURED ABDOMINAL A ORTIC ANEURYSM/RX HERE CAP RLL Shortness of breath CAP RLL CAP RLL CHF EVERYTHING CHF per COUNTER STITCHER /L.Abad EORDER PER [facility] F/U BILAT LOWER PAIN Amb Documentation EORDER [...] aortic aneurysm (AAA) Atherosclerotic heart disease 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 Essential hypertension History of aortic valve replacement Hyperlipidemia Kidney disease Lower extremity edema Abdominal aortic aneurysm (AAA) Atherosclerotic heart disease 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 Essential hypertension History of aortic valve replacement Hyperlipidemia Kidney disease Hypoxia COPD (chronic obstructive pulmonary disease) Secondary pulmonary arterial hypertension Tobacco dependence Abdominal aortic aneurysm (AAA) 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 [id number] Wound of left upper extremity Lower extremity edema Abdominal aortic aneurysm (AAA) Atherosclerotic heart disease 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 Essential hypertension History of aortic valve replacement Hyperlipidemia Kidney disease 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 [id number] Wound of left upper extremity Chief Complaint wound wound J44.9 - Chronic obstructive pulmonary disease, uns J44.9 - Chronic obstructive pulmonary disease, uns wound wound J44.9 - Chronic obstructive pulmonary disease, uns J44.9 - Chronic obstructive pulmonary disease, uns wound 4-6 WK F/U EORDER wound wound wound wound 3 M FU Reason for Visit 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 [id number] Wound of left upper extremity Lower extremity edema Abdominal aortic aneurysm (AAA) Atherosclerotic heart disease 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 Essential hypertension History of aortic valve replacement Hyperlipidemia Kidney disease 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 [id number] Wound of left upper extremity COPD (chronic [...] ulcer of ankle with fat layer exposed [id number] Wound of left upper extremity Lower extremity edema Abdominal aortic aneurysm (AAA) Atherosclerotic heart disease 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 Essential hypertension History of aortic valve replacement Hyperlipidemia Kidney disease 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 [id number] Wound of left upper extremity COPD (chronic [...] aortic aneurysm (AAA) Atherosclerotic heart disease 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 Essential hypertension History of aortic valve replacement Hyperlipidemia Smoking greater than 40 pack years Chief Complaint 6 M FU TOBACO 1 Y FU INT LABS VALVE REPLACEMENT EVAL Amb Documentation Reason for Visit COPD (chronic obstru ctive pulmonary disease) Smoking greater than 40 pack years Abdominal aortic aneurysm (AAA) Atherosclerotic heart disease 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 Essential hypertension [...] 12:36pm Smoking greater than 40 pack years Febru brad 2024 12:36pm Chief Complaint Admit Date Hernia, [...] 16, 2024 10:0 8pm SURGERY CLEARANCE (DR. WINSTON) June 19, 2024 8:36am Reason for Visit Admit Date COPD (chronic obstructive pulmonary dise ase) March 23, 2024 12:36pm Smoking greater than 40 pack years 2024 12:36pm Chief Complaint Admit Date 10 m fu March 23, 2024 12:36pm gu complaint May 16, 2024 10:0 8pm SURGERY CLEARANCE (DR. WINSTON) June 19, 2024 8:36am Gross hematuria June 21, 2024 6:25a m Cysto,Transurethal Resec Bladder,[place]us June 27, 2024 6:25am Reason for Visit Admit Date COPD (chronic obstructive pulmonary dise [facility]) March 23, 2024 12:36pm Smoking greater than 40 pack years 2024 12:36pm Pre-operative cardiovascular examination June 19, 2024 8:36am Abdominal aortic aneurysm (AAA) June 8:36am 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 June 19, 2024 8:36am Essential hypertension June 19, 2024 8: 36am History of aortic valve replacement June 19, 2024 8:36am Hyperlipidemia June 19, 2024 8:36a m Smoking greater than 40 pack years June 072024 8:36am Chief Complaint Admit Date 10 m fu March 23, 2024 12:36pm gu complaint May 16, 2024 10:0 8pm SURGERY CLEARANCE (DR. WINSTON) June 19, 2024 8:36am Gross hematuria June 21, 2024 6:25a m Cysto,Transurethal Resec Bladder,Olympus June 27, 2024 3:22pm Chief Complaint Admit Date gu complaint May 16, 2024 10:0 8pm SURGERY CLEARANCE (DR. WINSTON) June 19, 2024 8:36am Gross hematuria June 21, 2024 6:25a m Cysto,Transurethal Resec Bladder,Olympus June 27, 2024 3:22pm 1 Y FU August 30, 2024 7:53 am Reason for Visit Admit Date Pre-operative cardiovascular examination June 19, 2024 8:36am Abdominal aortic aneurysm (AAA) June 8:36am 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 June 19, 2024 8:36am Essential hypertension June 19, 2024 8: 36am History of aortic valve replacement June 19, 2024 8:36am Hyperlipidemia June 19, 2024 8:36a m Smoking greater than 40 pack years June 072024 8:36am Pre-operative cardiovascular examination August 30, 2024 7:53am Abdominal aortic aneurysm (AAA) August 7:53am 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 August 30, 2024 7:53am Essential hypertension August 30, 2024 7 :53am History of aortic valve replacement August 30, 2024 7:53am Hyperlipidemia August 30, 2024 7:53 am Smoking greater than 40 pack years August 30, 2024 7:53am Chief Complaint Admit Date SURGERY CLEARANCE (DR. WINSTON) June 19, 2024 8:36am Gross hematuria June 21, 2024 6:25a m Cysto,Transurethal Resec Bladder,[place]us June 27, 2024 3:22pm 1 Y FU August 30, 2024 7:53 am BLADDER CANCER September 21, 2024 7: 43am Reason for Visit Admit Date Pre-operative cardiovascular examination June 19, 2024 8:36am Abdominal aortic aneurysm (AAA) June 8:36am 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 June 19, 2024 8:36am Essential hypertension June 19, 2024 8: 36am History of aortic valve replacement June 19, 2024 8:36am Hyperlipidemia June 19, 2024 8:36a m Smoking greater than 40 pack years June 072024 8:36am Abdominal aortic aneurysm (AAA) August 7:53am 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 August 30, 2024 7:53am Essential hypertension August 30, 2024 7 :53am History of aortic valve replacement August 30, 2024 7:53am Hyperlipidemia August 30, 2024 7:53 am Smoking greater than 40 pack years August 30, 2024 7:53am Chief Complaint Admit Date 1 Y FU August 30, 2024 7:53 am BLADDER CANCER September 21, 2024 7: 43am HEMORRHAGIC SHOCK, GI BLEED November 07, 2024 7:29pm COLONSCOPY November 07, 2024 8: 06pm HEMORRHAGIC SHOCK, GI BLEED November 07, 2024 8:13pm Reason for Visit Admit Date Abdominal aortic aneurysm (AAA) August 7:53am 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 August 30, 2024 7:53am Essential hypertension August 30, 2024 7 :53am History of aortic valve replacement August 30, 2024 7:53am Hyperlipidemia August 30, 2024 7:53 am Smoking greater than 40 pack years August 30, 2024 7:53am GI bleed November 07, 2024 7: 29pm Hemorrhagic shock November 07, 2024 7: 29pm Chief Complaint Admit Date 1 Y FU August 30, 2024 7:53 am BLADDER CANCER September 21, 2024 7: 43am COLONSCOPY November 07, 2024 8: 06pm HEMORRHAGIC SHOCK, GI BLEED November 07, 2024 8:13pm HEMORRHAGIC SHOCK, GI BLEED November 07, 2024 8:14pm Reason for Visit Admit Date Abdominal aortic aneurysm (AAA) August 7:53am 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 August 30, 2024 7:53am Essential hypertension August 30, 2024 7 :53am History of aortic valve replacement August 30, 2024 7:53am Hyperlipidemia August 30, 2024 7:53 am Smoking greater than 40 pack years August 30, 2024 7:53am GI bleed November 07, 2024 8: 14pm Hemorrhagic shock November 07, 2024 8: 14pm Family History No Family History Records Found [...] HIGH COMPLEX 45 MINS Jamin Wilcox MD [address] [place] [address] [facility] [place] [address] [place] [address] Referral ID Status Reason Start Date Expiration Date Visits Requested Visits Authorized [id number] Authorized PCP Requested Referral Auto-Generate d Referral 2 02/03/2023 99 99 Summary Purpose Additional Source Comments Source Comments (unrecognize d section and content) In the event this informatio n is protected by the Federal Confidentiality of Alcohol and Drug Abuse Patient Records regulations: The Federal rules restrict any use of the information to criminally investigate or prosecute any alcohol or drug abuse patient.[facility] HospitalIn the event this information is protected by the Federal Confidentiality of Alcohol and Drug Abuse Patient Records regulations: The Federal rules restrict any use of the information to criminally investigate or prosecute any alcohol or drug abuse patient.[facility] HospitalIn the event this information is protected by the Federal Confidentiality of Alcohol and Drug Abuse Patient Records regulations: The Federal rules restrict any use of the information to criminally investigate or prosecute any alcohol or drug abuse patient.[facility] HospitalIn the event this information is protected by the Federal Confidentiality of Alcohol and Drug Abuse Patient Records regulations: The Federal rules restrict any use of the information to criminally investigate or prosecute any alcohol or drug abuse patient.[facility] HospitalIn the event this information is protected by the Federal Confidentiality of Alcohol and Drug Abuse Patient Records regulations: The Federal rules restrict any use of the information to criminally investigate or prosecute any alcohol or drug abuse patient.[facility] HospitalIn the event this information is protected by the Federal Confidentiality of Alcohol and Drug Abuse Patient Records regulations: The Federal rules restrict any use of the information to criminally investigate or prosecute any alcohol or drug abuse patient.[facility] HospitalIn the event this information is protected by the Federal Confidentiality of Alcohol and Drug Abuse Patient Records regulations: The Federal rules restrict any use of the information to criminally investigate or prosecute any alcohol or drug abuse patient.[facility] HospitalIn the event this information is protected by the Federal Confidentiality of Alcohol and Drug Abuse Patient Records regulations: The Federal rules restrict any use of the information to criminally investigate or prosecute any alcohol or drug abuse patient.[facility] HospitalIn the event this information is protected by the Federal Confidentiality of Alcohol and Drug Abuse Patient Records regulations: The Federal rules restrict any use of the information to criminally investigate or prosecute any alcohol or drug abuse patient.[facility] HospitalIn the event this information is protected by the Federal Confidentiality of Alcohol and Drug Abuse Patient Records regulations: The Federal rules restrict any use of the information to criminally investigate or prosecute any alcohol or drug abuse patient.[facility] HospitalIn the event this information is protected by the Federal Confidentiality of Alcohol and Drug Abuse Patient Records regulations: The Federal rules restrict any use of the information to criminally investigate or prosecute any alcohol or drug abuse patient.[facility] HospitalIn the event this information is protected by the Federal Confidentiality of Alcohol and Drug Abuse Patient Records regulations: The Federal rules restrict any use of the information to criminally investigate or prosecute any alcohol or drug abuse patient.[facility] HospitalIn the event this information is protected by the Federal Confidentiality of Alcohol and Drug Abuse Patient Records regulations: The Federal rules restrict any use of the information to criminally investigate or prosecute any alcohol or drug abuse patient.[facility]In the event this information is protected by the Federal Confidentiality of Alcohol and Drug Abuse Patient Records regulations: The Federal rules restrict any use of the information to criminally investigate or prosecute any alcohol or drug abuse patient.[facility] HospitalIn the event this information is protected by the Federal Confidentiality of Alcohol and Drug Abuse Patient Records regulations: The Federal rules restrict any use of the information to criminally investigate or prosecute any alcohol or drug abuse patient.[facility] HospitalIn the event this information is protected by the Federal Confidentiality of Alcohol and Drug Abuse Patient Records regulations: The Federal rules restrict any use of the information to criminally investigate or prosecute any alcohol or drug abuse patient.[facility] HospitalIn the event this information is protected by the Federal Confidentiality of Alcohol and Drug Abuse Patient Records regulations: The Federal rules restrict any use of the information to criminally investigate or prosecute any alcohol or drug abuse patient.[facility] HospitalIn the event this information is protected by the Federal Confidentiality of Alcohol and Drug Abuse Patient Records regulations: The Federal rules restrict any use of the information to criminally investigate or prosecute any alcohol or drug abuse patient.[facility] HospitalIn the event this information is protected by the Federal Confidentiality of Alcohol and Drug Abuse Patient Records regulations: The Federal rules restrict any use of the information to criminally investigate or prosecute any alcohol or drug abuse patient.[facility] HospitalIn the event this information is protected by the Federal Confidentiality of Alcohol and Drug Abuse Patient Records regulations: The Federal rules restrict any use of the information to criminally investigate or prosecute any alcohol or drug abuse patient.[facility] HospitalIn the event this information is protected by the Federal Confidentiality of Alcohol and Drug Abuse Patient Records regulations: The Federal rules restrict any use of the information to criminally investigate or prosecute any alcohol or drug abuse patient.[facility] HospitalIn the event this information is protected by the Federal Confidentiality of Alcohol and Drug Abuse Patient Records regulations: The Federal rules restrict any use of the information to criminally investigate or prosecute any alcohol or drug abuse patient.[facility] HospitalIn the event this information is protected by the Federal Confidentiality of Alcohol and Drug Abuse Patient Records regulations: The Federal rules restrict any use of the information to criminally investigate or prosecute any alcohol or drug abuse patient.[facility] HospitalIn the event this information is protected by the Federal Confidentiality of Alcohol and Drug Abuse Patient Records regulations: The Federal rules restrict any use of the information to criminally investigate or prosecute any alcohol or drug abuse patient.[facility] HospitalIn the event this information is protected by the Federal Confidentiality of Alcohol and Drug Abuse Patient Records regulations: The Federal rules restrict any use of the information to criminally investigate or prosecute any alcohol or drug abuse patient.[facility] HospitalIn the event this information is protected by the Federal Confidentiality of Alcohol and Drug Abuse Patient Records regulations: The Federal rules restrict any use of the information to criminally investigate or prosecute any alcohol or drug abuse patient.[facility] HospitalIn the event this information is protected by the Federal Confidentiality of Alcohol and Drug Abuse Patient Records regulations: The Federal rules restrict any use of the information to criminally investigate or prosecute any alcohol or drug abuse patient.[facility] HospitalIn the event this information is protected by the Federal Confidentiality of Alcohol and Drug Abuse Patient Records regulations: The Federal rules restrict any use of the information to criminally investigate or prosecute any alcohol or drug abuse patient.[facility] HospitalIn the event this information is protected by the Federal Confidentiality of Alcohol and Drug Abuse Patient Records regulations: The Federal rules restrict any use of the information to criminally investigate or prosecute any alcohol or drug abuse patient.[facility] HospitalIn the event this information is protected by the Federal Confidentiality of Alcohol and Drug Abuse Patient Records regulations: The Federal rules restrict any use of the information to criminally investigate or prosecute any alcohol or drug abuse patient.[facility] HospitalIn the event this information is protected by the Federal Confidentiality of Alcohol and Drug Abuse Patient Records regulations: The Federal rules restrict any use of the information to criminally investigate or prosecute any alcohol or drug abuse patient.[facility] HospitalIn the event this information is protected by the Federal Confidentiality of Alcohol and Drug Abuse Patient Records regulations: The Federal rules restrict any use of the information to criminally investigate or prosecute any alcohol or drug abuse patient.[facility] HospitalIn the event this information is protected by the Federal Confidentiality of Alcohol and Drug Abuse Patient Records regulations: The Federal rules restrict any use of the information to criminally investigate or prosecute any alcohol or drug abuse patient.[facility] HospitalIn the event this information is protected by the Federal Confidentiality of Alcohol and Drug Abuse Patient Records regulations: The Federal rules restrict any use of the information to criminally investigate or prosecute any alcohol or drug abuse patient.[facility] HospitalIn the event this information is protected by the Federal Confidentiality of Alcohol and Drug Abuse Patient Records regulations: The Federal rules restrict any use of the information to criminally investigate or prosecute any alcohol or drug abuse patient.[facility] HospitalIn the event this information is protected by the Federal Confidentiality of Alcohol and Drug Abuse Patient Records regulations: The Federal rules restrict any use of the information to criminally investigate or prosecute any alcohol or drug abuse patient.[facility] HospitalIn the event this information is protected by the Federal Confidentiality of Alcohol and Drug Abuse Patient Records regulations: The Federal rules restrict any use of the information to criminally investigate or prosecute any alcohol or drug abuse patient.[facility] HospitalIn the event this information is protected by the Federal Confidentiality of Alcohol and Drug Abuse Patient Records regulations: The Federal rules restrict any use of the information to criminally investigate or prosecute any alcohol or drug abuse patient.[facility] HospitalIn the event this information is protected by the Federal Confidentiality of Alcohol and Drug Abuse Patient Records regulations: The Federal rules restrict any use of the information to criminally investigate or prosecute any alcohol or drug abuse patient.[facility] HospitalIn the event this information is protected by the Federal Confidentiality of Alcohol and Drug Abuse Patient Records regulations: The Federal rules restrict any use of the information to criminally investigate or prosecute any alcohol or drug abuse patient.[facility] HospitalIn the event this information is protected by the Federal Confidentiality of Alcohol and Drug Abuse Patient Records regulations: The Federal rules restrict any use of the information to criminally investigate or prosecute any alcohol or drug abuse patient.[facility] HospitalIn the event this information is protected by the Federal Confidentiality of Alcohol and Drug Abuse Patient Records regulations: The Federal rules restrict any use of the information to criminally investigate or prosecute any alcohol or drug abuse patient.[facility] HospitalIn the event this information is protected by the Federal Confidentiality of Alcohol and Drug Abuse Patient Records regulations: The Federal rules restrict any use of the information to criminally investigate or prosecute any alcohol or drug abuse patient.[facility] HospitalIn the event this information is protected by the Federal Confidentiality of Alcohol and Drug Abuse Patient Records regulations: The Federal rules restrict any use of the information to criminally investigate or prosecute any alcohol or drug abuse patient.[facility] HospitalIn the event this information is protected by the Federal Confidentiality of Alcohol and Drug Abuse Patient Records regulations: The Federal rules restrict any use of the information to criminally investigate or prosecute any alcohol or drug abuse patient.[facility] HospitalIn the event this information is protected by the Federal Confidentiality of Alcohol and Drug Abuse Patient Records regulations: The Federal rules restrict any use of the information to criminally investigate or prosecute any alcohol or drug abuse patient.[facility] HospitalIn the event this information is protected by the Federal Confidentiality of Alcohol and Drug Abuse Patient Records regulations: The Federal rules restrict any use of the information to criminally investigate or prosecute any alcohol or drug abuse patient.[facility] Reason for Visit (unrecogniz ed section [...] COMPUTED TOMOGRAPHY THORAX W/CONTRAST Codey Christianson MD [address] [place] [address] Phone: tel: fax: [place] [id number] Referral ID Status Reason Start Date Expiration Date V isits Requested Visits Authorized [id number] Closed Auto-Generate d Referral 07/26/2024 08/25/2025 1 1 Reason Comments Bladder Cancer Reason Comments CASE 9822 Follow Up Reason Comments Established Patient Reason Comments Surgical Followup Orders Reason Comments CASE 9822 Discussion Reason Comments CASE 9822 Update Reason Comments Bladder Cancer Hematuria Reason Comments Hands Hanger - Other Reason Comments [facility] Hanger - Other Introduction Reason Comments New Patient Reason Comments Orders Reason Comments Results Reason Comments Patient Education Reason Comments Radiology US Specialty Diagnoses / Procedures Referred By Contac t Referred To Contact US IMAGING Diagnoses Malignant neoplasm of overlapping sites of bladder (HCC) ROSALIE (acute kidney injury) Hydroureter on left Procedures US KIDNEY/BLADDER US RETROPERITONEAL REAL TIME W/IMAGE COMPLETE Lakeisha Dawkins, DO [address] [place] [address] Phone: tel: fax: [facility] [place] [id number] Referral ID Status Reason Start Date Expiration Date V isits Requested Visits Authorized [id number] Closed Auto-Generate d Referral 09/05/2024 10/05/2025 [address] Specialty Diagnoses / Procedures Referred By Contac t Referred To Contact CT IMAGING Diagnoses Malignant neoplasm of urinary bladder, unspecified site (HCC) Other hydronephrosis Procedures CT ABD/PEL WO IVCON CT ABD & PELVIS W/O CONTRAST Stacy Gauthier MD [address] [place] [address] Phone: tel: fax: [id number] Referral ID Status Reason Start Date Expiration Date V isits Requested Visits Authorized [id number] Closed Auto-Generate d Referral 09/04/2024 09/20/2025 1 1 Reason Comments Opened In Error Reason Comments Chemotherapy Treatment Specialty Diagnoses / Procedures Referred By Contac t Referred To Contact Diagnoses Malignant neoplasm of urinary bladder, unspecified site (HCC) Lakeisha Dawkins, DO [address] [place] [address] Phone: tel: fax: Hematology/Oncology [address] [place] [address] Phone: tel: fax: Referral ID Status Reason Start Date Expiration Date V isits Requested Visits Authorized [id number] Authorized 09/17/2024 12/16/2024 99 99 Reason Comments Radiotherapy On-treatment Visit Reason Comments Care Coordination CYCLE 1/DAY 1 POST T REATMENT CALL Reason Comments Non-Chemotherapy Treatment Reason Comments CADD Pump D/C Reason Comments Blood Draw (CVAD) Reason Comments PICC Line Reason Comments Established Patient Reason Comments Patient Education Discharge teaching-c ompleted radiation Care Teams (unrecognized sec tion and content) Siding Mechanic Relationship Specialty Start Date End Date Padmini Carrasco MD [address] [place] [address] [phone] PCP - General Family Practice 01/24/19 Siding Mechanic Relationship Specialty Start Date End Date Padmini Carrasco MD [address] [place] [address] [id number] PCP - General Family Medicine 01/24/19 Siding Mechanic Relationship Specialty Start Date End Date Padmini Carrasco MD [address] [place] [address] [phone] PCP - General Family Medicine 01/24/19 Siding Mechanic Relationship Specialty Start Date End Date Padmini Carrasco MD [address] [place], [place] [address]Trung [facility] [place] [id number] PCP - General Family Medicine 01/24/19 Siding Mechanic Relationship Specialty Start Date End Date Padmini Carrasco MD [address] [place] [address] [phone] PCP - General Family Medicine 01/24/19 Team Status: Active Member Role Status Dates Dr. Ezekiel Carrasco MD Family Provider Active Dr. Ezekiel Carrasco MD Primary Care Provider Activ e Team Status: Inactive Member Role Status Dates Dr. Ezekiel Carrasco MD Primary Care Provider, Refe rring Provider Active Tc Subramanian STATIONARY ENGINEER APPRENTICE, STATIONARY ENGINEER APPRENTICE-C Attending Provider Active Team Status: Active Member [...] Raymond Asencio DO Attending Provider, Emergency P rovider Active Team Status: Inactive Member Role Status Dates Dr. Ezekiel Carrasco MD Primary Care Provider Activ e Tc Subramanian STATIONARY ENGINEER APPRENTICE, STATIONARY ENGINEER APPRENTICE-C Attending Provider, Referring Pro vider Active Team Status: Inactive Member Role Status Dates Dr. Ezekiel Carrasco MD Primary Care Provider Activ e Sherry Ahn , STATIONARY ENGINEER APPRENTICE-C Attending Provider, Referring Pr ovider Active Team Status: Inactive Member Role Status Dates Dr. Ezekile Carrasco MD Primary Care Provider, Atte nding [...] Provider, Refe rring Provider Active Carmina Tee STATIONARY ENGINEER APPRENTICE, STATIONARY ENGINEER APPRENTICE-C Attending Provider Active Team Status: Active Member Role Status Dates Dr. Ezekiel Carrasco MD Primary Care Provider Activ e Tc Subramanian STATIONARY ENGINEER APPRENTICE, STATIONARY ENGINEER APPRENTICE-C Attending Provider Active Team Status: Active Member [...] Primary Care Provider Activ e Tc Subramanian STATIONARY ENGINEER APPRENTICE, STATIONARY ENGINEER APPRENTICE-C Attending Provider, Referring Pro vider Active Team Status: Inactive Member Role Status Dates Dr. Ezekiel Carrasco MD Primary Care Provider Activ e Tonia Biedenharn PA, PA Attending Provider Active Tc Subramanian STATIONARY ENGINEER APPRENTICE, STATIONARY ENGINEER APPRENTICE-C Referring Provider Active Team Status: Active Member [...] Primary Care Provider Activ e Tc Subramanian STATIONARY ENGINEER APPRENTICE, STATIONARY ENGINEER APPRENTICE-C Attending Provider Active Team Status: Active Member Role Status Dates Dr. Ezekiel Carrasco MD Primary Care Provider Activ e Dr. Kwame Alex MD Attending Provider Active Tonia Biedenharn PA, PA Referring Provider Active Team Status: Active Member Role Status Dates Dr. Ezekiel Carrasco MD Primary Care Provider Activ e Carmina Tee STATIONARY ENGINEER APPRENTICE, STATIONARY ENGINEER APPRENTICE-C Referring Provider, Other Pr ovider Active Dr. Noe Suarez MD Attending Provider Active Team Status: Active Member Role Status Dates Dr. Ezekiel Carrasco MD Primary Care Provider Activ e Carmina Tee STATIONARY ENGINEER APPRENTICE, STATIONARY ENGINEER APPRENTICE-C Attending Provider, Referrin g Provider Active Team Status: Inactive Member Role Status Dates Dr. Ezekiel Carrasco MD Primary Care Provider Activ e Tonia Jenkins PA, PA Attending Provider Active Team Status: Inactive Member Role Status Dates Dr. Ezekiel Carrasco MD Primary Care Provider Activ e Carmina Tee STATIONARY ENGINEER APPRENTICE, STATIONARY ENGINEER APPRENTICE-C Attending Provider, Referrin g Provider Active Team Status: Inactive Member Role Status Dates Dr. Ezekiel Carrasco MD Primary Care Provider, Refe rring Provider Active Isela Kwok PA, PA Attending Provider Active Team Status: Active Member Role Status Dates Dr. Ezekiel Carrasco MD Primary Care Provider Activ e Carmina Tee STATIONARY ENGINEER APPRENTICE, STATIONARY ENGINEER APPRENTICE-C Referring Provider, Other Pr ovider Active Dr. [...] Provider, Refe rring Provider Active Farheen Alexander STATIONARY ENGINEER APPRENTICE, STATIONARY ENGINEER APPRENTICE-C Attending Provider Active Team Status: Active Member Role Status Dates Dr. Ezekiel Carrasco MD Primary Care Provider Activ e Dr. Kwame Alex MD Attending Provider Active KALPANA Danielson Referring Provider Active Team Status: Inactive Member Role Status Dates Dr. Ezekiel Carrasco MD Primary Care Provider Activ e Farheen Alexander STATIONARY ENGINEER APPRENTICE, STATIONARY ENGINEER APPRENTICE-C Attending Provider, Referring P carrillo Active Team Status: Active Member Role Status Dates Dr. Ezekiel Carrasco MD Primary Care Provider Activ e Farheen Alexander STATIONARY ENGINEER APPRENTICE, STATIONARY ENGINEER APPRENTICE-C Attending Provider Active Team Status: Active Member [...] 2024 End: February 21, 2024 Carmina Tee STATIONARY ENGINEER APPRENTICE, STATIONARY ENGINEER APPRENTICE-C Attending Provider Active Start: February 21, 2024 End: February 21, 2024 Carmina Tee STATIONARY ENGINEER APPRENTICE, STATIONARY ENGINEER APPRENTICE-C Referring Provider Active Start: February 21, 2024 End: February 21, 2024 Team Status: Inactive Member Role Status Dates Dr. Padmini Carrasco MD Primary Care Provider Acti ve Start: March 23, 2024 End: March 23, 2024 Dr. Padmini Carrasco MD Referring Provider Active Start: March 23, 2024 End: March 23, 2024 Carmina Tee STATIONARY ENGINEER APPRENTICE, STATIONARY ENGINEER APPRENTICE-C Attending Provider Active Start: March 23, 2024 [...] End: May 28, 2024 Dr. Jose J Winston MD Attending Provider Active Start: May 28, 2024 End: May 28, 2024 Dr. Jose J Winston MD Referring Provider Active Start: May 28, [...] End: June 21, 2024 Dr. Jose J Winston MD Attending Provider Active Start: June 21, 2024 End: June 21, 2024 Dr. Jose J Winston MD Referring Provider Active Start: June 21, 2024 End: June 21, 2024 Team Status: Active Member Role Status Dates Dr. Padmini Carrasco MD Primary Care Provider Acti ve Start: June 21, 2024 Dr. Jose J Winston MD Attending Provider Active Start: June 21, 2024 Dr. Jose J Winston MD Referring Provider Active Start: June 21, 2024 Team Status: Active Member Role Status Dates Dr. Padmini Carrasco MD Primary Care Provider Acti ve Start: June 27, 2024 Dr. Jose J Winston MD Attending Provider Active Start: June 27, 2024 Dr. Jose J Winston MD Referring Provider Active Start: June 27, 2024 Team Status: Inactive Member Role Status Dates Dr. Padmini Carrasco MD Primary Care Provider Acti ve Start: June 27, 2024 End: June 28, 2024 Dr. Jose J Winston MD Admit Provider Active Start: June 27, 2024 End: June 28, 2024 Dr. Jose J Winston MD Attending Provider Active Start: June 27, 2024 End: June 28, 2024 Dr. Jose J Winston MD Referring Provider Active Start: June 27, [...] July 09, 2024 End: July 09, 2024 Siding Mechanic Relationship Specialty Start Date End Date Padmini Carrasco MD [address] [facility] [place], [place] [address] PCP - General Family Medicine 01/24/19 Jose J Winston MD [address] [place] [address] [place], [place] [address]71 Referring Urology 07/19/24 Siding Mechanic Relationship Specialty Start Date End Date Padmini Carrasco MD [address] [facility] [place], [place] [address] PCP - General Family Medicine 01/24/19 Jose J Winston MD [address] [place] [address] [place], [place] [address] Referring Urology 07/19/24 Siding Mechanic Relationship Specialty Start Date End Date Padmini Carrasco MD [address] [facility] [place], [place] [id number] PCP - General Family Medicine 01/24/19 Jose J Winston MD [address], [place] [address] Referring Urology 07/19/24 Siding Mechanic Relationship Specialty Start Date End Date Padmini Carrasco MD [address] [place], [place] [address] PCP - General Family Medicine 01/24/19 Jose J Winston MD [address] [address] [place], [place] [address]11 Referring Urology 07/19/24 Siding Mechanic Relationship Specialty Start Date End Date Padmini Carrasco MD [address] [place], [place] [address] PCP - General Family Medicine 01/24/19 Jose J Winston MD [address] [address] [place] [address] Referring Urology 07/19/24 Siding Mechanic Relationship Specialty Start Date End Date Padmini Carrasco MD [address] [facility] [place] [place] [address] PCP - General Family Medicine 01/24/19 Jose J Winston MD [address] [address] [place], [place] [address]111 Referring Urology 07/19/24 Siding Mechanic Relationship Specialty Start Date End Date Padmini Carrasco MD [address] [facility] [place] [place] [address] PCP - General Family Medicine 01/24/19 Jose J Winston MD [address] [address] [place], [place] [address] Referring Urology 07/19/24 Karen Post, ANGELA Specialty Hands Hanger Hematology/Oncology 08/06/24 Siding Mechanic Relationship Specialty Start Date End Date Padmini Carrasco MD [address] [facility] [place], [place] [id number] PCP - General Family Medicine 01/24/19 Jose J Winston MD [address] [address] [place], [place] [address] Referring Urology 07/19/24 Karen Post, ANGELA Specialty Hands Hanger Hematology/Oncology 08/06/24 Siding Mechanic Relationship Specialty Start Date End Date Padmini Carrasco MD [address] [place] [address] PCP - General Family Medicine 01/24/19 Jose J Winston MD [address] [address] [place], [place] [address] Referring Urology 07/19/24 Karen Post, RN Specialty Hands Hanger Hematology/Oncology 08/06/24 Siding Mechanic Relationship Specialty Start Date End Date Padmini Carrasco MD [address] [facility] [place] [place] [address] PCP - General Family Medicine 01/24/19 Jose J Winston MD [address] [place] [address] [place] [address] Referring Urology 07/19/24 Karen Post RN Specialty Hands Hanger Hematology/Oncology 08/06/24 Siding Mechanic Relationship Specialty Start Date End Date Padmini Carrasco MD [address] [facility] [place] [place] [address] PCP - General Family Medicine 01/24/19 Jose J Winston MD [address] [address] [place] [address] Referring Urology 07/19/24 Karen Post, RN Specialty Hands Hanger Hematology/Oncology 08/06/24 Siding Mechanic Relationship Specialty Start Date End Date Padmini Carrasco MD [address] [place] [address] PCP - General Family Medicine 01/24/19 Jose J Winston MD [address] [address] Referring Urology 07/19/24 Karen Post, ANGELA Specialty Hands Hanger Hematology/Oncology 08/06/24 Team Status: Active Member Role/Relationship [...] End: May 28, 2024 Dr. Jose J Winston MD Attending Provider Active Start: May 28, 2024 End: May 28, 2024 Dr. Jose J Winston MD Referring Provider Active Start: May 28, [...] End: June 21, 2024 Dr. Jose J Winston MD Attending Provider Active Start: June 21, 2024 End: June 21, 2024 Dr. Jose J Winston MD Referring Provider Active Start: June 21, 2024 End: June 21, 2024 Team Status: Inactive Member Role/Relationship Status Dates Dr. Padmini Carrasco MD Primary Care Provider Acti ve Start: June 21, 2024 End: June 21, 2024 Dr. Jose J Winston MD Attending Provider Active Start: June 21, 2024 End: June 21, 2024 Dr. Jose J Winston MD Referring Provider Active Start: June 21, 2024 End: June 21, 2024 Team Status: Inactive Member Role/Relationship Status Dates Dr. Padmini Carrasco MD Primary Care Provider Acti ve Start: June 27, 2024 End: June 28, 2024 Dr. Jose J Winston MD Admit Provider Active Start: June 27, 2024 End: June 28, 2024 Dr. Jose J Winston MD Attending Provider Active Start: June 27, 2024 End: June 28, 2024 Dr. Jose J Winston MD Referring Provider Active Start: June 27, [...] 2024 End: August 30, 2024 Farheen Alexander STATIONARY ENGINEER APPRENTICE, STATIONARY ENGINEER APPRENTICE-C Attending Provider Active Start: August 30, 2024 End: August 30, 2024 Siding Mechanic Relationship Specialty Start Date End Date Padmini Carrasco MD [address] [facility] [place] [address] PCP - General Family Medicine 01/24/19 Jose J Winston MD [address] [address] Referring Urology 07/19/24 Karen Post RN Specialty Hands Hanger Hematology/Oncology 08/06/24 Stacy Gauthier MD [address] [place] [address] Physician Urology 09/05/24 Siding Mechanic Relationship Specialty Start Date End Date Padmini Carrasco MD [address] [place] [address] PCP - General Family Medicine 01/24/19 Jose J Winston MD [address] [address] Referring Urology 07/19/24 Karen Post RN Specialty Hands Hanger Hematology/Oncology 08/06/24 Stacy Gauthier MD [address] [facility] [place] [address] Physician Urology 09/05/24 Siding Mechanic Relationship Specialty Start Date End Date Padmini Carrasco MD [address] [facility] [place] [address] PCP - General Family Medicine 01/24/19 Jose J Winston MD [address] [address] Referring Urology 07/19/24 Karen Post, RN Specialty Hands Hanger Hematology/Oncology 08/06/24 Stacy Gauthier MD [address] [place] [address] Physician Urology 09/05/24 Luigi Banks MD [address] [facility] [place] [address] Physician Radiation Oncology 09/06/24 Siding Mechanic Relationship Specialty Start Date End Date Padmini Carrasco MD [address] [facility] [address] PCP - General Family Medicine 01/24/19 Jose J Winston MD [address] [address] Referring Urology 07/19/24 Karen Post, ANGELA Specialty Hands Hanger Hematology/Oncology 08/06/24 Stacy Gauthier MD [address] [place] [address] Physician Urology 09/05/24 Luigi Banks MD [address] [facility] [address] Physician Radiation Oncology 09/06/24 Siding Mechanic Relationship Specialty Start Date End Date Padmini Carrasco MD [address] [facility] [place] [address] PCP - General Family Medicine 01/24/19 Jose J Winston MD [address] [address] Referring Urology 07/19/24 Kaern Post, RN Specialty Hands Hanger Hematology/Oncology 08/06/24 Stacy Gauthier MD [address] [place] [address] Physician Urology 09/05/24 Luigi Banks MD [address] [place] [address] Physician Radiation Oncology 09/06/24 Siding Mechanic Relationship Specialty Start Date End Date Padmini Carrasco MD [address] [place] [address] PCP - General Family Medicine 01/24/19 Jose J Winston MD [address] [address] Referring Urology 07/19/24 Karen Post, ANGELA Specialty Hands Hanger Hematology/Oncology 08/06/24 Stacy Gauthier MD [address] [place] [address] Physician Urology 09/05/24 Luigi Banks MD [address] [place] [address] Physician Radiation Oncology 09/06/24 Siding Mechanic Relationship Specialty Start Date End Date Padmini Carrasco MD [address] [place] [address] PCP - General Family Medicine 01/24/19 Jose J Winston MD [address] [facility] [address] [place] [address] Referring Urology 07/19/24 Karen Post, RN Specialty Hands Hanger Hematology/Oncology 08/06/24 Stacy Gauthier MD [address] [place] [address] Physician Urology 09/05/24 Luigi Banks MD [address] [place] [address] Physician Radiation Oncology 09/06/24 Matthew Gu RN Specialty Hands Hanger Oncology 09/12/24 Lakeisha Dawkins DO [address] [place] [address] Hematology/Oncology 09/12/24 Antoni Polk LISW [address] [place] [address] Engineering Analyst Hematology/Oncology 09/12/24 Siding Mechanic Relationship Specialty Start Date End Date Padmini Carrasco MD [address] [place] [address] PCP - General Family Medicine 01/24/19 Jose J Winston MD [address] [facility] [address] [place] [address] Referring Urology 07/19/24 Karen Post, ANGELA Specialty Hands Hanger Hematology/Oncology 08/06/24 Stacy Gauthier MD [address] [place] [address] Physician Urology 09/05/24 Luigi Banks MD [address] [place] [address] Physician Radiation Oncology 09/06/24 Matthew Gu RN Specialty Hands Hanger Oncology 09/12/24 Lakeisha Dawkins DO [address] [place] [address] Hematology/Oncology 09/12/24 Antoni Polk LISW [address] [place] [address] Engineering Analyst Hematology/Oncology 09/12/24 Siding Mechanic Relationship Specialty Start Date End Date Padmini Carrasco MD [address] [place] [address] PCP - General Family Medicine 01/24/19 Jose J Winston MD [address] [place] [address] Referring Urology 07/19/24 Karen Post RN Specialty Hands Hanger Hematology/Oncology 08/06/24 Stacy Gauthier MD [address] [place] [address] Physician Urology 09/05/24 Luigi Banks MD [address] [place] [address] Physician Radiation Oncology 09/06/24 Matthew Gu RN Specialty Hands Hanger Oncology 09/12/24 Lakeisha Dawkins DO [address] [place] [address] Hematology/Oncology 09/12/24 Antoni Polk LISW [address] [place] [address] Engineering Analyst Hematology/Oncology 09/12/24 Siding Mechanic Relationship Specialty Start Date End Date Padmini Carrasco MD [address] [place] [address] PCP - General Family Medicine 01/24/19 Jose J Winston MD [address] [address] [place] [address] Referring Urology 07/19/24 Karen Post, ANGELA Specialty Hands Hanger Hematology/Oncology 08/06/24 Stacy Gauthier MD [address] [place] [address] Physician Urology 09/05/24 Luigi Banks MD [address] [place] [address] Physician Radiation Oncology 09/06/24 Matthew Gu RN Specialty Hands Hanger Oncology 09/12/24 Lakeisha Dawkins DO [address] [place] [address] Hematology/Oncology 09/12/24 Antoni Polk LISW [address] [place] [address] Engineering Analyst Hematology/Oncology 09/12/24 Siding Mechanic Relationship Specialty Start Date End Date Padmini Carrasco MD [address] [place] [address] PCP - General Family Medicine 01/24/19 Jose J Winston MD [address] [facility] [address] [place] [address] Referring Urology 07/19/24 Karen Post, ANGELA Specialty Hands Hanger Hematology/Oncology 08/06/24 Stacy Gauthier MD [address] [place] [address] Physician Urology 09/05/24 Luigi Banks MD [address] [place] [address] Physician Radiation Oncology 09/06/24 Matthew Gu, RN Specialty Hands Hanger Oncology 09/12/24 Lakeisha Dawkins DO [address] [facility] [place] [address] Hematology/Oncology 09/12/24 Antoni Polk LISW [address] [place] [address] Engineering Analyst Hematology/Oncology 09/12/24 Siding Mechanic Relationship Specialty Start Date End Date Padmini Carrasco MD [address] [place] [address] PCP - General Family Medicine 01/24/19 Jose J Winston MD [address] [place] [address] Referring Urology 07/19/24 Karen Post RN Specialty Hands Hanger Hematology/Oncology 08/06/24 Stacy Gauthier MD [address] [place] [address] Physician Urology 09/05/24 Luigi Banks MD [address] [place] [address] Physician Radiation Oncology 09/06/24 Matthew Gu, RN Specialty Hands Hanger Oncology 09/12/24 Lakeisha Dawkins DO [address] [facility] [place] [address] Hematology/Oncology 09/12/24 Antoni Polk LISW [address] [place] [address] Engineering Analyst Hematology/Oncology 09/12/24 Siding Mechanic Relationship Specialty Start Date End Date Padmini Carrasco MD [address] [place] [address] PCP - General Family Medicine 01/24/19 Jose J Winston MD [address] [place] [address] [place] [address] Referring Urology 07/19/24 Karen Post, ANGELA Specialty Hands Hanger Hematology/Oncology 08/06/24 Stacy Gauthier MD [address] [place] [address] Physician Urology 09/05/24 Luigi Banks MD [address] [place] [address] Physician Radiation Oncology 09/06/24 Matthew Gu RN Specialty Hands Hanger Oncology 09/12/24 Lakeisha Dawkins DO [address] [place] [address] Hematology/Oncology 09/12/24 Antoni Polk LISW [address] [place] [address] Engineering Analyst Hematology/Oncology 09/12/24 Siding Mechanic Relationship Specialty Start Date End Date Padmini Carrasco MD [address] [place] [address] PCP - General Family Medicine 01/24/19 Jose J Winston MD [address] [address] [place], [place] [address] Referring Urology 07/19/24 Karen Post, ANGELA Specialty Hands Hanger Hematology/Oncology 08/06/24 Stacy Gauthier MD [address] [place] [address] Physician Urology 09/05/24 Luigi Banks MD [address] [facility] [address] [place] [address] Physician Radiation Oncology 09/06/24 Matthew Gu RN Specialty Hands Hanger Oncology 09/12/24 Lakeisha Dawkins DO [address] [place] [address] Hematology/Oncology 09/12/24 Antoni Polk LISW [address] [facility] [place] [place] [address] Engineering Analyst Hematology/Oncology 09/12/24 Siding Mechanic Relationship Specialty Start Date End Date Padmini Carrasco MD [address] [place] [address] PCP - General Family Medicine 01/24/19 Jose J Winston MD [address] [place] [address] Referring Urology 07/19/24 Karen Post, ANGELA Specialty Hands Hanger Hematology/Oncology 08/06/24 Stacy Gauthier MD [address] [place] [address] Physician Urology 09/05/24 Luigi Banks MD [address] [place] [address] Physician Radiation Oncology 09/06/24 Matthew Gu, ANGELA Specialty Hands Hanger Oncology 09/12/24 Lakeisha Dawkins [address] [place], [place] [address] Hematology/Oncology 09/12/24 Antoni Polk LISW [address] [place] [address] Engineering Analyst Hematology/Oncology 09/12/24 Team Status: Inactive Member Role/Relationship [...] End: June 21, 2024 Dr. Jose J Winston MD Attending Provider Active Start: June 21, 2024 End: June 21, 2024 Dr. Jose J Winston MD Referring Provider Active Start: June 21, 2024 End: June 21, 2024 Team Status: Inactive Member Role/Relationship Status Dates Dr. Padmini Carrasco MD Primary Care Provider Acti ve Start: June 21, 2024 End: June 21, 2024 Dr. Jose J Winston MD Attending Provider Active Start: June 21, 2024 End: June 21, 2024 Dr. Jose J Winston MD Referring Provider Active Start: June 21, 2024 End: June 21, 2024 Team Status: Inactive Member Role/Relationship Status Dates Dr. Padmini Carrasco MD Primary Care Provider Acti ve Start: June 27, 2024 End: June 28, 2024 Dr. Jose J Winston MD Admit Provider Active Start: June 27, 2024 End: June 28, 2024 Dr. Jose J Winston MD Attending Provider Active Start: June 27, 2024 End: June 28, 2024 Dr. Jose J Winston MD Referring Provider Active Start: June 27, [...] 2024 End: August 30, 2024 Farheen Alexander STATIONARY ENGINEER APPRENTICE, STATIONARY ENGINEER APPRENTICE-C Attending Provider Active Start: August 30, 2024 End: August 30, 2024 Team Status: Inactive Member Role/Relationship Status Dates Dr. Padmini Carrasco MD Primary Care Provider Acti ve Start: September 21, 2024 End: September 21, 2024 Dr. Lakeisha Dawkins DO Attending Provider Active St art: September 21, 2024 End: September 21, 2024 Dr. Lakeisha Dawkins DO Referring Provider Active St art: September 21, 2024 End: September 21, 2024 Siding Mechanic Relationship Specialty Start Date End Date Padmini Carrasco MD [address] [place] [address] PCP - General Family Medicine 01/24/19 Jose J Winston MD [address] [place] [id number] Referring Urology 07/19/24 Karen Post, RN Specialty Hands Hanger Hematology/Oncology 08/06/24 Stacy Gauthier MD [address] [place] [address] Physician Urology 09/05/24 Luigi Banks MD [address] [place] [address] Physician Radiation Oncology 09/06/24 Matthew Gu RN Specialty Hands Hanger Oncology 09/12/24 Lakeisha Dawkins DO [address] [place] [address] Hematology/Oncology 09/12/24 Antoni Polk LISW [address] [place] [address] Engineering Analyst Hematology/Oncology 09/12/24 Siding Mechanic Relationship Specialty Start Date End Date Padmini Carrasco MD [address] [place] [address] PCP - General Family Medicine 01/24/19 Jose J Winston MD [address] [place] [address] [place] [address] Referring Urology 07/19/24 Karen Post, ANGELA Specialty Hands Hanger Hematology/Oncology 08/06/24 Stacy Gauthier MD [address] [place] [address] Physician Urology 09/05/24 Luigi Banks MD [address] [place] [address] Physician Radiation Oncology 09/06/24 Matthew Gu, RN Specialty Hands Hanger Oncology 09/12/24 Lakeisha Dawkins DO [address] [place] [address] Hematology/Oncology 09/12/24 Antoni Polk LISW [address] [place] [address] Engineering Analyst Hematology/Oncology 09/12/24 Siding Mechanic Relationship Specialty Start Date End Date Padmini Carrasco MD [address] [place] [address] PCP - General Family Medicine 01/24/19 Jose J Winston MD [address] [place] [address] [place] [address] Referring Urology 07/19/24 Karen Post, ANGELA Specialty Hands Hanger Hematology/Oncology 08/06/24 Stacy Gauthier MD [address] [place] [address] Physician Urology 09/05/24 Luigi Banks MD [address] [place] [address] Physician Radiation Oncology 09/06/24 Matthew Gu RN Specialty Hands Hanger Oncology 09/12/24 Lakeisha Dawkins DO [address] [place] [address] Hematology/Oncology 09/12/24 Antoni Polk LISW [address] [place] [address] Engineering Analyst Hematology/Oncology 09/12/24 Siding Mechanic Relationship Specialty Start Date End Date Padmini Carrasco MD [address] [place] [place] [address] PCP - General Family Medicine 01/24/19 Jose J Winston MD [address] [address] [place] [address] Referring Urology 07/19/24 Karen Post RN Specialty Hands Hanger Hematology/Oncology 08/06/24 Stacy Gauthier MD [address] [place] [address] Physician Urology 09/05/24 Luigi Banks MD [address] [place] [address] Physician Radiation Oncology 09/06/24 Matthew Gu RN Specialty Hands Hanger Oncology 09/12/24 Lakeisha Dawkins DO [address] [place] [address] Hematology/Oncology 09/12/24 Antoni Polk LISW [address] [place] [address] Engineering Analyst Hematology/Oncology 09/12/24 Siding Mechanic Relationship Specialty Start Date End Date Padmini Carrasco MD [address] [place] [address] PCP - General Family Medicine 01/24/19 Jose J Winston MD [address] [place] [id number] Referring Urology 07/19/24 Karen Post RN Specialty Hands Hanger Hematology/Oncology 08/06/24 Stacy Gauthier MD [address] [place] [address] Physician Urology 09/05/24 Luigi Banks MD [address] [place] [address] Physician Radiation Oncology 09/06/24 Matthew Gu RN Specialty Hands Hanger Oncology 09/12/24 Lakeisha Dawkins DO [address] [place] [address] Hematology/Oncology 09/12/24 Antoni Polk LISW [address] [place] [address] Engineering Analyst Hematology/Oncology 09/12/24 Siding Mechanic Relationship Specialty Start Date End Date Padmini Carrasco MD [address] [place] [address] PCP - General Family Medicine 01/24/19 Jose J Winston MD [address] [place] [address] [place] [address] Referring Urology 07/19/24 Karen Post RN Specialty Hands Hanger Hematology/Oncology 08/06/24 Stacy Gauthier MD [address] [place] [id number] Physician Urology 09/05/24 Luigi Banks MD [address] [place] [address] Physician Radiation Oncology 09/06/24 Matthew Gu RN Specialty Hands Hanger Oncology 09/12/24 Lakeisha Dawkins DO [address] [place] [address] Hematology/Oncology 09/12/24 Antoni Polk LISW [address] [place] [address] Engineering Analyst Hematology/Oncology 09/12/24 Siding Mechanic Relationship Specialty Start Date End Date Padmini Carrasco MD [address] [place] [address] PCP - General Family Medicine 01/24/19 Jose J Winston MD [address] [address] [place], [place] [id number] Referring Urology 07/19/24 Karen Post, RN Specialty Hands Hanger Hematology/Oncology 08/06/24 Stacy Gauthier MD [address] [place] [address] Physician Urology 09/05/24 Luigi Banks MD [address] [place] [address] Physician Radiation Oncology 09/06/24 Matthew Gu RN Specialty Hands Hanger Oncology 09/12/24 Lakeisha Dawkins DO [address] [place] [address] Hematology/Oncology 09/12/24 Antoni Polk LISW [address] [place] [address] Engineering Analyst Hematology/Oncology 09/12/24 Siding Mechanic Relationship Specialty Start Date End Date Padmini Carrasco MD [address] [place] [address] PCP - General Family Medicine 01/24/19 Jose J Winston MD [address] [address] [place] [address] Referring Urology 07/19/24 Karen Post, ANGELA Specialty Hands Hanger Hematology/Oncology 08/06/24 Stacy Gauthier MD [address] [place] [address] Physician Urology 09/05/24 Luigi Banks MD [address] [place] [address] Physician Radiation Oncology 09/06/24 Matthew Gu, ANGELA Specialty Hands Hanger Oncology 09/12/24 Lakeisha Dawkins DO [address] [facility] [place] [address] Hematology/Oncology 09/12/24 Amol Antoni DARYN [address] [facility] [place] [address] Engineering Analyst Hematology/Oncology 09/12/24 Team Status: Active Member Role/Relationship Status Dates Dr. Padmini Carrasco MD Primary care physician Act satish Team Status: Inactive Member Role/Relationship Status Dates Dr. Padmini Carrasco MD Primary care physician Act satish Start: August 30, 2024 End: August 30, 2024 Dr. Padmini Carrasco MD Referring Provider Active Start: August 30, 2024 End: August 30, 2024 Farheen Alexander STATIONARY ENGINEER APPRENTICE, STATIONARY ENGINEER APPRENTICE-C Attending physician Active Start: August 30, 2024 End: August 30, 2024 Team Status: Inactive Member Role/Relationship Status Dates Dr. Padmini Carrasco MD Primary care physician Act satish Start: September 21, 2024 End: September 21, 2024 Dr. Lakeisha Dawkins DO Attending physician Active S tart: September 21, 2024 End: September 21, 2024 Dr. Lakeisha Dawkins DO Referring Provider Active St art: September 21, 2024 End: September 21, 2024 Team Status: Inactive Member Role/Relationship Status Dates Dr. Padmini Carrasco MD Primary care physician Act satish Start: November 07, 2024 End: November 07, 2024 Dr. Con Pena DO Emergency Department Physician Active Start: November 07, 2024 End: November 07, 2024 Dr. Suzanne Medley MD Attending physician Active Start: November 07, 2024 End: November 07, 2024 Dr. Suzanne Medley MD Referring Provider Active Start: November 07, 2024 End: November 07, 2024 Dr. Derrell Fonseca MD Nurse Practitioner Active Start: November 07, 2024 End: November 07, 2024 Dr. Kamlesh Floyd , Nurse Practitioner Active Start: November 07, 2024 End: November 07, 2024 Summer Grande , STATIONARY ENGINEER APPRENTICE-C Nurse Practitioner Active S tart: November 07, 2024 End: November 07, 2024 Oxana Camarillo STATIONARY ENGINEER APPRENTICE-C Nurse Practitioner Active Start: November 07, 2024 End: November 07, 2024 KALPANA Ramirez Nurse Practitioner Active Start: November 07, 2024 End: November 07, 2024 Dr. Kaleigh Armstrong MD Nurse Practitioner Active Start: November 07, 2024 End: November 07, 2024 Dr. Ritchie Juarez MD Nurse Practitioner Active Sta rt: November 07, 2024 End: November 07, 2024 Dr. Noe Suarez MD Nurse Practitioner Active Start: November 07, 2024 End: November 07, 2024 Dr. Bernardo Zuñiga , Nurse Practitioner Active S tart: November 07, 2024 End: November 07, 2024 Dr. Jatinder Mobley MD Nurse Practitioner Active Start: November 07, 2024 End: November 07, 2024 Dr. Howie Araujo MD Nurse Practitioner Active Start: November 07, 2024 End: November 07, 2024 Dr. Say Abraham MD Nurse Practitioner Active Start: November 07, 2024 End: November 07, 2024 Dr. Namrata Little MD Nurse Practitioner Active Start: November 07, 2024 End: November 07, 2024 Dr. Prakash Carr MD Nurse Practitioner Active S tart: November 07, 2024 End: November 07, 2024 Dr. Bubba Garcia MD Nurse Practitioner Active St art: November 07, 2024 End: November 07, 2024 Dr. Jeffery House MD Nurse Practitioner Active S tart: November 07, 2024 End: November 07, 2024 Dr. Olya Meneses MD Nurse Practitioner Active Start: November 07, 2024 End: November 07, 2024 Dr. Geetha Moran MD Nurse Practitioner Active Start: November 07, 2024 End: November 07, 2024 Dr. Alexandrea Yap MD Nurse Practitioner Active Start: November 07, 2024 End: November 07, 2024 Dr. Chris Jacobson MD Nurse Practitioner Active Start: November 07, 2024 End: November 07, 2024 Dr. Alec Delacruz MD Nurse Practitioner Active Start: November 07, 2024 End: November 07, 2024 Dr. Andrei Paulson MD Nurse Practitioner Active Start: November 07, 2024 End: November 07, 2024 Dr. Juan M Beltran , DO Nurse Practitioner Active Start: November 07, 2024 End: November 07, 2024 Dr. Ricardo Juarez MD Nurse Practitioner Active St art: November 07, 2024 End: November 07, 2024 Dr. Dian Gilbert MD Nurse Practitioner Active Start: November 07, 2024 End: November 07, 2024 Dr. Liam Busch , DO Nurse Practitioner Active Start: November 07, 2024 End: November 07, 2024 Dr. Bowen Barrett MD Nurse Practitioner Active Start: November 07, 2024 End: November 07, 2024 Dr. Dianelys Simon MD Nurse Practitioner Active Start: November 07, 2024 End: November 07, 2024 Dr. Mckinley Griffin MD Nurse Practitioner Active Start: November 07, 2024 End: November 07, 2024 Team Status: Active Member Role/Relationship Status Dates Dr. Padmini Carrasco MD Primary care physician Act satish Start: November 07, 2024 Dr. Con Pena DO Emergency Department Physician Active Start: November 07, 2024 Dr. Kamlesh Floyd DO Attending physician Active Start: November 07, 2024 Dr. Kamlesh Floyd DO Referring Provider Active Start: November 07, 2024 Dr. Kamlesh Floyd DO Nurse Practitioner Active Start: November 07, 2024 Team Status: Active Member Role/Relationship Status Dates Dr. Padmini Carrasco MD Primary care physician Act satish Start: November 07, 2024 Dr. Con Pena DO Emergency Department Physician Active Start: November 07, 2024 Dr. Kamlesh Floyd DO Nurse Practitioner Active Start: November 07, 2024 Dr. Suzanne Medley MD Attending physician Active Start: November 07, 2024 Dr. Suzanne Medley MD Referring Provider Active Start: November 07, 2024 Dr. Suzanne Medley MD Nurse Practitioner Active Start: November 07, 2024 Team Status: Active Member Role/Relationship Status Dates Dr. Padmini Carrasco MD Primary care physician Act satish Start: November 07, 2024 Dr. Con Pena DO Emergency Department Physician Active Start: November 07, 2024 Dr. Kamlesh Floyd DO Attending physician Active Start: November 07, 2024 Dr. Kamlesh Floyd DO Referring Provider Active Start: November 07, 2024 Dr. Kamlesh Floyd DO Nurse Practitioner Active Start: November 07, 2024 Team Status: Active Member Role/Relationship Status Dates Dr. Padmini Carrasco MD Primary care physician Act satish Start: November 07, 2024 Dr. Con Pena DO Emergency Department Physician Active Start: November 07, 2024 Dr. Kamlesh Floyd DO Nurse Practitioner Active Start: November 07, 2024 Dr. Suzanne Medley MD Attending physician Active Start: November 07, 2024 Dr. Suzanne Medley MD Referring Provider Active Start: November 07, 2024 Dr. Suzanne Medley MD Nurse Practitioner Active Start: November 07, 2024 Team Status: Inactive Member Role/Relationship Status Dates Dr. Padmini Carrasco MD Primary care physician Act satish Start: November 07, 2024 End: November 07, 2024 Dr. Con Pena DO Emergency Department Physician Active Start: November 07, 2024 End: November 07, 2024 Dr. Suzanne Medley MD Admitting physician Active Start: November 07, 2024 End: November 07, 2024 Dr. Suzanne Medley MD Referring Provider Active Start: November 07, 2024 End: November 07, 2024 Dr. Derrell Fonseca MD Nurse Practitioner Active Start: November 07, 2024 End: November 07, 2024 Dr. Kamlesh Floyd DO Attending physician Active Start: November 07, 2024 End: November 07, 2024 Dr. Kamlesh Floyd DO Nurse Practitioner Active Start: November 07, 2024 End: November 07, 2024 TOÑO Reddy Nurse Practitioner Active S tart: November 07, 2024 End: November 07, 2024 SUZANNE ZengC Nurse Practitioner Active Start: November 07, 2024 End: November 07, 2024 KALPANA Ramirez Nurse Practitioner Active Start: November 07, 2024 End: November 07, 2024 Dr. Kaleigh Armstrong MD Nurse Practitioner Active Start: November 07, 2024 End: November 07, 2024 Dr. Ritchie Juarez MD Nurse Practitioner Active Sta rt: November 07, 2024 End: November 07, 2024 Dr. oNe Suarez MD Nurse Practitioner Active Start: November 07, 2024 End: November 07, 2024 Dr. Bernardo Zuñiga DO Nurse Practitioner Active S tart: November 07, 2024 End: November 07, 2024 Dr. Jatinder Mobley MD Nurse Practitioner Active Start: November 07, 2024 End: November 07, 2024 Dr. Howie Araujo MD Nurse Practitioner Active Start: November 07, 2024 End: November 07, 2024 Dr. Say Abraham MD Nurse Practitioner Active Start: November 07, 2024 End: November 07, 2024 Dr. Namrata Little MD Nurse Practitioner Active Start: November 07, 2024 End: November 07, 2024 Dr. Prakash Carr MD Nurse Practitioner Active S tart: November 07, 2024 End: November 07, 2024 Dr. Bubba Garcai MD Nurse Practitioner Active St art: November 07, 2024 End: November 07, 2024 Dr. Jeffery House MD Nurse Practitioner Active S tart: November 07, 2024 End: November 07, 2024 Dr. Olya Meneses MD Nurse Practitioner Active Start: November 07, 2024 End: November 07, 2024 Dr. Geetha Moran MD Nurse Practitioner Active Start: November 07, 2024 End: November 07, 2024 Dr. Alexandrea Yap MD Nurse Practitioner Active Start: November 07, 2024 End: November 07, 2024 Dr. Chris Jacobson MD Nurse Practitioner Active Start: November 07, 2024 End: November 07, 2024 Dr. Alec Delacruz MD Nurse Practitioner Active Start: November 07, 2024 End: November 07, 2024 Dr. Andrei Paulson MD Nurse Practitioner Active Start: November 07, 2024 End: November 07, 2024 Dr. Juan M Beltran DO Nurse Practitioner Active Start: November 07, 2024 End: November 07, 2024 Dr. Ricardo Juarez MD Nurse Practitioner Active St art: November 07, 2024 End: November 07, 2024 Dr. Dian Gilbert MD Nurse Practitioner Active Start: November 07, 2024 End: November 07, 2024 Dr. Liam Busch DO Nurse Practitioner Active Start: November 07, 2024 End: November 07, 2024 Dr. Bowen Barrett MD Nurse Practitioner Active Start: November 07, 2024 End: November 07, 2024 Dr. Dianelys Simon MD Nurse Practitioner Active Start: November 07, 2024 End: November 07, 2024 Dr. Mckinley Griffin MD Nurse Practitioner Active Start: November 07, 2024 End: November 07, 2024 Goals (unrecognized section and content) Goals may [...] ized section and content) DATE CREATED AUTHOR 11/12/2024 [facility] DATE CREATED AUTHOR AUTHOR'S ORGANIZ ATION 11/22/2024 [facility] DATE CREATED AUTHOR AUTHOR'S ORGANIZ ATION 11/22/2024 [facility] FOR RECORDS PERTAINING TO PATIENTS WHO [...] BE BASED ON THE PRIMARY CLINICAL RECORDS. [employer] [facility]. provides no warranty or guarantee of the accuracy or completeness of information in this document.
[2024-11-23 13:06] LABS: AST(SGOT) 14 U/L (<=37); Alanine Aminotransfer ALT/SGPT 9 U/L (<=46); Albumin, Serum 3.1 g/dL (3.4-4.8); Alkaline Phosphatase 41 U/L (40-129); Anion Gap 10 (5-15); BUN 68 mg/dL (4-19); BUN/Creat Ratio 40.8 RATIO (10-20); Calcium,Total 8.5 mg/dL (7.6-11.0); Carbon Dioxide 21.8 mmol/L (21.0-32.0); Chloride 104 mmol/L (98-108); Globulin 1.8 g/dL (2.2-4.2); Glucose 136 mg/dL (70-99); Lipase 38 U/L (13-75); Potassium 4.8 mmol/L (3.3-5.1)
[2024-11-23 13:10] LABS: Reactive Lymphocyte RARE
--- NOTE | 2024-11-23 14:31 | EKG12_ITS ---
Test Reason : CP Blood Pressure : */* mmHG Vent. Rate : 103 BPM Atrial Rate : 103 BPM P-R Int : 132 ms QRS Dur : 86 ms QT Int : 326 ms P-R-T Axes : 90 78 69 degrees QTcB Int : 427 ms Sinus tachycardia Otherwise normal ECG Confirmed by [place]ER CALLE, DOUG ([id number]), electronic news gathering editor TATI PEREZ ([id number]) on 11/26/2024 9:28:20 AM Referred By: ANAID Confirmed By: DOUG RODRIGUEZ MD
[2024-11-23] MEDS: HYDROmorphone 0.5 MG/0.5 ML SYRINGE IV (15:06)
--- NOTE | 2024-11-23 15:10 | RAD_ITS ---
PROCEDURE: ACUTE ABDOMEN INC CHEST 11/23/2024 REASON FOR EXAM: RULE OUT PERF, PORTABLE PLEASE TECHNIQUE: Procedure Code: RADABDCA Modality: DX Procedure: ACUTE ABDOMEN INC CHEST COMPARISON: Abdominal CT 11/18/2024. FINDINGS: Lungs/Pleura: Clear. No pneumothorax or pleural effusion. Heart/Mediastinum: Within normal limits. Aortic arch calcification. Bones/Soft tissues: Multilevel degenerative changes of the spine, and bilateral hip and shoulder arthrosis. Qualitative osteopenia. Sternotomy wires. Multiple scattered abdominal surgical clips. Abdomen: Visualized gas pattern is nonspecific, grossly nonobstructive. No discernible free air. Moderate stool burden in the colon. RAD/Acute Abdomen Inc Chest IMPRESSION: No acute cardiopulmonary disease. Grossly nonobstructive bowel gas pattern. No free air. Reading Location: [id number]
[2024-11-23] MEDS: Pantoprazole Sodium 80 MG in 0.9% Normal Saline (50mL Bag) 15 ML 420 MG IV BOLUS (15:24)
[2024-11-23] MEDS: Sodium Bicarbonate 150 MEQ in Dextrose 5%-Water (1000mL Bag) 1,000 ML IV (15:25)
[2024-11-23 15:29] LABS: SITE Not entered; VBG BASE EXCESS -4 mmol/L (-1.0-3.5); VBG PO2 37 mmHg (25-40); VBG SO2 67 % (50-70); VBG TCO2 23 mmol/L (23-33)
[2024-11-23] MEDS: DEXTROSE 5% IV (16:19)
[2024-11-23] MEDS: OCTREOTIDE IV (16:19)
[2024-11-23] MEDS: WATER IV (16:19)
[2024-11-23] MEDS: Octreotide 0.5 MG in Dextrose 5%-Water (100mL Bag) 99 ML 5 MG CONT INF (16:31)
== END 2024-11-23 17:25 | disposition short-term general hospital (02) ==
PROVIDERS: Emergency Provider Emergency Medicine; PCP Family Medicine; Visit Provider Emergency Medicine
DX: K26.4 Chronic or unspecified duodenal ulcer with hemorrhage (principal); C67.9 Malignant neoplasm of bladder, unspecified; N18.32 Chronic kidney disease, stage 3b; R07.9 Chest pain, unspecified; I95.9 Hypotension, unspecified; N39.0 Urinary tract infection, site not specified; N17.9 Acute kidney failure, unspecified; R11.2 Nausea with vomiting, unspecified; D64.9 Anemia, unspecified; I12.9 Hypertensive chronic kidney disease with stage 1 through stage 4 chronic kidney disease, or unspecified chronic kidney disease; I35.0 Nonrheumatic aortic (valve) stenosis; I25.10 Atherosclerotic heart disease of native coronary artery without angina pectoris; I71.40 Abdominal aortic aneurysm, without rupture, unspecified; E78.00 Pure hypercholesterolemia, unspecified; Z95.1 Presence of aortocoronary bypass graft; Z95.2 Presence of prosthetic heart valve; Z87.11 Personal history of peptic ulcer disease; Z79.82 Long term (current) use of aspirin; Z79.899 Other long term (current) drug therapy; Z87.891 Personal history of nicotine dependence; Z87.19 Personal history of other diseases of the digestive system
CPT/HCPCS: 36592; 74022; 80053; 81001; 82803; 83605; 83690; 85025; 86850; 86900; 86901; 87077; 87086; 87088; 87186; 93005; 96365; 96366; 96367; 96372; 96375; 96376; 99283; P9016; A4216; J2354; J2405

== ENCOUNTER → 2024-12-17 | Outpatient (CLI) | payer MEDICARE, SELFPAY ==
[2024-12-17 10:52] LABS: Hematocrit 23.5 % (40-54); Hemoglobin 7.5 g/dL (13.0-16.5)
== END | disposition home or self-care (01) ==
LOC: MFPLAB 08:52
PROVIDERS: PCP Family Medicine; Visit Provider Family Medicine
DX: D64.9 Anemia, unspecified (principal)
CPT/HCPCS: 36415; 85014; 85018

== ENCOUNTER 2024-12-18 11:52 | Emergency (ER) | payer MEDICARE, SELFPAY ==
[2024-12-18] VITALS (24 sets, daily range): BP systolic 66–128; BP diastolic 43–86; PULSE 6–86; RESP 13–20; TEMP 36.4–36.6; O2SAT 96–100; BMI 22.2
--- NOTE | 2024-12-18 12:14 | EDS_ITS ---
HPI <Dr. Kwame Mata DO - Last Filed: 12/18/24 19:21> History of Present Illness Chief Complaint: Abn Labs Informant: patient Onset/Context/Timing Onset: Days Context: Gradual Onset Timing: Continuous Quality: Weak Location: Generalized Worsened by: Nothing Relieved by: Nothing Narrative Narrative: Patient presents with abnormal lab today. Patient had outpatient lab work which showed low hemoglobin. Patient states he has had problems with anemia in the past. Patient states he has required blood transfusions in the past. Patient states he feels short of breath whenever he tries to walk or do anything. Patient denies any chest pain. Patient denies any abdominal pain. Patient denies any nausea, vomiting, or diarrhea. Patient denies any melena or hematochezia. [facility] <Dr. Kwame Mata DO - Last Filed: 12/18/24 19:21> [facility] Medical History UTI (urinary tract infection) Chronic kidney disease Duodenal ulcer Hypovolemic shock Acute blood loss anemia Acute upper gastrointestinal hemorrhage GI bleed COPD (chronic obstructive pulmonary disease) Bladder cancer Wears dentures Wears glasses Bruising Easy bruising High cholesterol Smoker Shortness of breath on exertion History of echocardiogram Cardiology follow-up encounter Stage 3b chronic kidney disease (CKD) Thrombocytopenia Chronic kidney insufficiency Pleural effusion Secondary pulmonary arterial 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 Instructions: Ordered rosuvastatin 5 mg tablet (Crestor) 5 mg PO DAILY uzma sterol 03/02/22 03/02/22 History amlodipine 5 mg tablet 5 mg PO DAILY #30 tabs 02/28 Unknown Rx cholecalciferol (vitamin D3) 25 25 mcg PO DAILY supple ment 10/27/23 Unknown History mcg (1,000 unit) capsule Held on 12/18/24. Instructions: MD Ordered metoprolol tartrate 25 mg tablet 12.5 mg (1/2 x 25 mg) PO BID #90 03/22/24 06/27/24 05:30 Rx tabs acetaminophen 500 mg capsule 1,000 mg PO Q6H PRN pain 06/13/24 Unknown History OXYGEN - Supplemental ([facility] 11/19/24 Unknown History INFORMATIONAL USE ONLY) albuterol sulfate 2.5 mg/3 mL 2.5 mg inhalation Q6H Unknown History (0.083 %) solution for nebulization calcium carbonate 500 mg PO QDAY 11/21/24 Unkn own History ferrous sulfate 325 mg (65 mg 325 mg PO QDAY 11/21/24 Unknown History iron) tablet Held on 12/18/24. Instructions: MD Ordered fluticasone fur. 200 mcg-umeclid 1 inh inhalation QDAY 11/21/24 Unknown History 62.5 mcg-vilant 25 mcg inhalat.powder (Trelegy Ellipta) pantoprazole 40 mg tablet,delayed 40 mg PO BID #60 tab s 11/21/24 Unknown Rx release sucralfate 1 gram tablet 1 g PO 0700,1100,1600 #90 ta bs 11/21/24 Unknown Rx albuterol sulfate 90 mcg/actuation 2 inh inhalation Q6 H PRN wheezing 12/18/24 Unknown History aerosol inhaler Allergy/AdvReac Type Severity Reaction Status Date / Time No Known Allergies Allergy Verified 12/18/24 11:53 Family History Sister Asthma Mother Arthritis Diabetes Brother Cancer Unsure what kind- "just a lump on his neck" Surgical History Neoplasm of bladder Hx of inguinal hernia repair S/P inguinal hernia repair History of cardiac catheterization S/P AAA repair 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) History of left heart catheterization (11/27/18) History of aortic valve replacement (02/12/19) Social History household members: none Smoking Status: Former smoker quit status: has quit before alcohol intake: never substance use type: does not use caffeine: Yes Type: coffee Number of servings: 3 what type of physical activity do you participate in: other frequency: 3-4 times per week seatbelt use: always ROS <Dr. Kwame Mata, DO - Last Filed: 12/18/24 19:21> ROS ED Constitutional Constitutional ED: Reports chills and subjective; Denies fever(s) Eyes Eyes: Denies blurry vision or change in vision ENT ENT ED: Denies rhinorrhea or sore throat Cardiovascular Cardiovascular: Denies chest pain or palpitations Respiratory/Chest Respiratory/Chest: Reports dyspnea on exertion; Denies cough Gastrointestinal Gastrointestinal: Denies nausea or vomiting Genitourinary Genitourinary ED: Denies dysuria or hematuria Musculoskeletal Musculoskeletal: Denies back pain or neck pain Integumentary Denies abscess or rash Neurologic Neurologic: Denies headache(s) or weakness Allergic/Immunologic Allergic/Immunologic ED: Denies mouth swelling or urticaria EXAM <Dr. Kwame Mata, DO - Last Filed: 12/18/24 19:21> Physical Exam Const Vital Signs: 12/18/24 16:46 12/18/24 17:07 12/18/24 17:30 Temperature 97.7 F L 97.7 F L 97.7 F L Temperature Source Oral Oral Oral Pulse Rate 77 79 72 Respiratory Rate 16 18 18 Blood Pressure 112/75 124/57 H 115/66 Blood Pressure Mean 87 79 82 Blood Pressure Source Monitor Monitor Blood Pressure Position Semi-Fowlers Semi-Fowlers Blood Pressure Location Left Arm Pulse Ox 100 100 100 Oxygen Delivery Method Room Air Room Air Room Air 12/18/24 18:22 12/18/24 18:30 12/18/24 19:22 Temperature 97.6 F L 97.6 F L 97.9 F Temperature Source Oral Oral Oral Pulse Rate 75 75 75 Respiratory Rate 18 16 18 Blood Pressure 119/70 119/70 103/86 H Blood Pressure Mean 86 86 91 Blood Pressure Source Monitor Monitor Monitor Blood Pressure Position Semi-Fowlers Semi-Fowlers Semi-Fowlers Blood Pressure Location Left Arm Left Arm Right Arm Pulse Ox 97 100 100 Oxygen Delivery Method Room Air Room Air Room Air 12/18/24 20:00 12/18/24 20:22 12/18/24 20:24 Temperature 97.8 F 97.8 F Temperature Source Oral Oral Pulse Rate 68 67 68 Respiratory Rate 18 18 18 Blood Pressure 95/66 128/55 H 128/55 H Blood Pressure Mean 75 79 79 Blood Pressure Source Monitor Monitor Blood Pressure Position Semi-Fowlers Semi-Fowlers Blood Pressure Location Left Arm Left Arm Pulse Ox 100 100 100 Oxygen Delivery Method Room Air Room Air Room Air 12/18/24 21:00 12/18/24 22:00 12/18/24 22:30 Temperature Temperature Source Pulse Rate 79 60 73 Respiratory Rate 18 18 17 Blood Pressure 114/56 L 116/64 122/52 H Blood Pressure Mean 75 81 72 Blood Pressure Source Blood Pressure Position Blood Pressure Location Pulse Ox 100 97 Oxygen Delivery Method Room Air Room Air 12/18/24 23:00 12/18/24 23:30 12/18/24 23:45 Temperature Temperature Source Pulse Rate 67 70 62 Respiratory Rate 18 16 15 Blood Pressure 105/74 84/54 L Blood Pressure Mean 84 65 Blood Pressure Source Blood Pressure Position Blood Pressure Location Pulse Ox 99 100 97 Oxygen Delivery Method Room Air 12/18/24 23:52 12/18/24 23:53 12/19/24 00:00 Temperature Temperature Source Pulse Rate 65 64 74 Respiratory Rate 13 18 18 Blood Pressure 88/46 L 87/43 L 92/52 L Blood Pressure Mean 59 55 66 Blood Pressure Source Blood Pressure Position Blood Pressure Location Pulse Ox 97 98 100 Oxygen Delivery Method 12/19/24 00:40 12/19/24 00:55 12/19/24 01:00 Temperature 97.9 F 97.9 F Temperature Source Oral Oral Pulse Rate 70 64 67 Respiratory Rate 18 16 16 Blood Pressure 81/46 L 94/47 L Blood Pressure Mean 57 62 Blood Pressure Source Monitor Monitor Blood Pressure Position Semi-Fowlers Semi-Fowlers Blood Pressure Location Left Arm Left Arm Pulse Ox 99 96 98 Oxygen Delivery Method Room Air Room Air 12/19/24 01:05 12/19/24 01:15 12/19/24 01:47 Temperature Temperature Source Pulse Rate 68 61 74 Respiratory Rate 17 13 18 Blood Pressure 88/58 L 95/53 L Blood Pressure Mean 68 64 Blood Pressure Source Blood Pressure Position Blood Pressure Location Pulse Ox 92 99 Oxygen Delivery Method 12/19/24 01:55 12/19/24 02:00 12/19/24 02:11 Temperature 97.8 F Temperature Source Oral Pulse Rate 65 70 Respiratory Rate 16 18 Blood Pressure 103/54 L 103/54 L 103/54 L Blood Pressure Mean 70 69 70 Blood Pressure Source Monitor Blood Pressure Position Semi-Fowlers Blood Pressure Location Left Arm Pulse Ox 97 100 Oxygen Delivery Method Room Air Room Air 12/19/24 02:30 12/19/24 02:51 12/19/24 03:00 Temperature 97.8 F 97.8 F Temperature Source Oral Oral Pulse Rate 60 66 84 Respiratory Rate 14 16 18 Blood Pressure 109/53 L 109/53 L 97/71 Blood Pressure Mean 71 71 79 Blood Pressure Source Monitor Monitor Blood Pressure Position Semi-Fowlers Semi-Fowlers Blood Pressure Location Left Arm Left Arm Pulse Ox 97 91 100 Oxygen Delivery Method Room Air Room Air 12/19/24 03:00 12/19/24 03:55 12/19/24 04:00 Temperature 98.7 F Temperature Source Oral Pulse Rate 71 66 72 Respiratory Rate 16 16 18 Blood Pressure 97/71 122/56 H 116/57 L Blood Pressure Mean 81 78 76 Blood Pressure Source Monitor Blood Pressure Position Semi-Fowlers Blood Pressure Location Left Arm Pulse Ox 98 97 98 Oxygen Delivery Method Room Air Room Air Room Air 12/19/24 05:00 12/19/24 06:00 12/19/24 07:00 Temperature Temperature Source Pulse Rate 93 61 63 Respiratory Rate 18 18 18 Blood Pressure 100/49 L 117/61 108/95 H Blood Pressure Mean 66 79 99 Blood Pressure Source Blood Pressure Position Blood Pressure Location Pulse Ox 100 99 98 Oxygen Delivery Method Room Air Room Air Room Air 12/19/24 07:32 12/19/24 09:00 12/19/24 10:00 Temperature Temperature Source Pulse Rate 77 60 63 Respiratory Rate 12 16 16 Blood Pressure 101/48 L 117/61 101/49 L Blood Pressure Mean 65 79 66 Blood Pressure Source Blood Pressure Position Blood Pressure Location Pulse Ox 97 99 100 Oxygen Delivery Method Room Air Room Air Room Air 12/19/24 11:43 12/19/24 12:00 12/19/24 12:45 Temperature Temperature Source Pulse Rate 63 59 L 68 Respiratory Rate 20 H 15 18 Blood Pressure 110/58 L 112/61 Blood Pressure Mean 75 77 Blood Pressure Source Blood Pressure Position Blood Pressure Location Pulse Ox 100 Oxygen Delivery Method Room Air Positive well nourished and well developed Constitutional Narrative: BMI is 22.3. General Appearance ED: well developed and NAD HEENT Reports moist mucous membranes Eyes General Eye ED: Yes pale conjunctiva; Negative for scleral icterus Neck supple and no JVD Resp normal respiratory effort and clear to auscultation bilaterally Cardio regular rate and regular rhythm GI non-tender and non-distended Palpation: soft Neuro oriented x3, CN's II-XII intact bilaterally and no sensory deficits noted Sensorium / Orientation: alert Motor Exam: strength 5/5 throughout Psych mental status grossly normal <Dr. Rachana Stinson MD - Last Filed: 12/19/24 01:39> Physical Exam Const Vital Signs: 12/18/24 16:46 12/18/24 17:07 12/18/24 17:30 Temperature 97.7 F L 97.7 F L 97.7 F L Temperature Source Oral Oral Oral Pulse Rate 77 79 72 Respiratory Rate 16 18 18 Blood Pressure 112/75 124/57 H 115/66 Blood Pressure Mean 87 79 82 Blood Pressure Source Monitor Monitor Blood Pressure Position Semi-Fowlers Semi-Fowlers Blood Pressure Location Left Arm Pulse Ox 100 100 100 Oxygen Delivery Method Room Air Room Air Room Air 12/18/24 18:22 12/18/24 18:30 12/18/24 19:22 Temperature 97.6 F L 97.6 F L 97.9 F Temperature Source Oral Oral Oral Pulse Rate 75 75 75 Respiratory Rate 18 16 18 Blood Pressure 119/70 119/70 103/86 H Blood Pressure Mean 86 86 91 Blood Pressure Source Monitor Monitor Monitor Blood Pressure Position Semi-Fowlers Semi-Fowlers Semi-Fowlers Blood Pressure Location Left Arm Left Arm Right Arm Pulse Ox 97 100 100 Oxygen Delivery Method Room Air Room Air Room Air 12/18/24 20:00 12/18/24 20:22 12/18/24 20:24 Temperature 97.8 F 97.8 F Temperature Source Oral Oral Pulse Rate 68 67 68 Respiratory Rate 18 18 18 Blood Pressure 95/66 128/55 H 128/55 H Blood Pressure Mean 75 79 79 Blood Pressure Source Monitor Monitor Blood Pressure Position Semi-Fowlers Semi-Fowlers Blood Pressure Location Left Arm Left Arm Pulse Ox 100 100 100 Oxygen Delivery Method Room Air Room Air Room Air 12/18/24 21:00 12/18/24 22:00 12/18/24 22:30 Temperature Temperature Source Pulse Rate 79 60 73 Respiratory Rate 18 18 17 Blood Pressure 114/56 L 116/64 122/52 H Blood Pressure Mean 75 81 72 Blood Pressure Source Blood Pressure Position Blood Pressure Location Pulse Ox 100 97 Oxygen Delivery Method Room Air Room Air 12/18/24 23:00 12/18/24 23:30 12/18/24 23:45 Temperature Temperature Source Pulse Rate 67 70 62 Respiratory Rate 18 16 15 Blood Pressure 105/74 84/54 L Blood Pressure Mean 84 65 Blood Pressure Source Blood Pressure Position Blood Pressure Location Pulse Ox 99 100 97 Oxygen Delivery Method Room Air 12/18/24 23:52 12/18/24 23:53 12/19/24 00:00 Temperature Temperature Source Pulse Rate 65 64 74 Respiratory Rate 13 18 18 Blood Pressure 88/46 L 87/43 L 92/52 L Blood Pressure Mean 59 55 66 Blood Pressure Source Blood Pressure Position Blood Pressure Location Pulse Ox 97 98 100 Oxygen Delivery Method 12/19/24 00:40 12/19/24 00:55 12/19/24 01:00 Temperature 97.9 F 97.9 F Temperature Source Oral Oral Pulse Rate 70 64 67 Respiratory Rate 18 16 16 Blood Pressure 81/46 L 94/47 L Blood Pressure Mean 57 62 Blood Pressure Source Monitor Monitor Blood Pressure Position Semi-Fowlers Semi-Fowlers Blood Pressure Location Left Arm Left Arm Pulse Ox 99 96 98 Oxygen Delivery Method Room Air Room Air 12/19/24 01:05 12/19/24 01:15 12/19/24 01:47 Temperature Temperature Source Pulse Rate 68 61 74 Respiratory Rate 17 13 18 Blood Pressure 88/58 L 95/53 L Blood Pressure Mean 68 64 Blood Pressure Source Blood Pressure Position Blood Pressure Location Pulse Ox 92 99 Oxygen Delivery Method 12/19/24 01:55 12/19/24 02:00 12/19/24 02:11 Temperature 97.8 F Temperature Source Oral Pulse Rate 65 70 Respiratory Rate 16 18 Blood Pressure 103/54 L 103/54 L 103/54 L Blood Pressure Mean 70 69 70 Blood Pressure Source Monitor Blood Pressure Position Semi-Fowlers Blood Pressure Location Left Arm Pulse Ox 97 100 Oxygen Delivery Method Room Air Room Air 12/19/24 02:30 12/19/24 02:51 12/19/24 03:00 Temperature 97.8 F 97.8 F Temperature Source Oral Oral Pulse Rate 60 66 84 Respiratory Rate 14 16 18 Blood Pressure 109/53 L 109/53 L 97/71 Blood Pressure Mean 71 71 79 Blood Pressure Source Monitor Monitor Blood Pressure Position Semi-Fowlers Semi-Fowlers Blood Pressure Location Left Arm Left Arm Pulse Ox 97 91 100 Oxygen Delivery Method Room Air Room Air 12/19/24 03:00 12/19/24 03:55 12/19/24 04:00 Temperature 98.7 F Temperature Source Oral Pulse Rate 71 66 72 Respiratory Rate 16 16 18 Blood Pressure 97/71 122/56 H 116/57 L Blood Pressure Mean 81 78 76 Blood Pressure Source Monitor Blood Pressure Position Semi-Fowlers Blood Pressure Location Left Arm Pulse Ox 98 97 98 Oxygen Delivery Method Room Air Room Air Room Air 12/19/24 05:00 12/19/24 06:00 12/19/24 07:00 Temperature Temperature Source Pulse Rate 93 61 63 Respiratory Rate 18 18 18 Blood Pressure 100/49 L 117/61 108/95 H Blood Pressure Mean 66 79 99 Blood Pressure Source Blood Pressure Position Blood Pressure Location Pulse Ox 100 99 98 Oxygen Delivery Method Room Air Room Air Room Air 12/19/24 07:32 12/19/24 09:00 12/19/24 10:00 Temperature Temperature Source Pulse Rate 77 60 63 Respiratory Rate 12 16 16 Blood Pressure 101/48 L 117/61 101/49 L Blood Pressure Mean 65 79 66 Blood Pressure Source Blood Pressure Position Blood Pressure Location Pulse Ox 97 99 100 Oxygen Delivery Method Room Air Room Air Room Air 12/19/24 11:43 12/19/24 12:00 12/19/24 12:45 Temperature Temperature Source Pulse Rate 63 59 L 68 Respiratory Rate 20 H 15 18 Blood Pressure 110/58 L 112/61 Blood Pressure Mean 75 77 Blood Pressure Source Blood Pressure Position Blood Pressure Location Pulse Ox 100 Oxygen Delivery Method Room Air <Dr. Yoan Hastings, DO - Last Filed: 12/19/24 16:45> Physical Exam Const Vital Signs: 12/18/24 16:46 12/18/24 17:07 12/18/24 17:30 Temperature 97.7 F L 97.7 F L 97.7 F L Temperature Source Oral Oral Oral Pulse Rate 77 79 72 Respiratory Rate 16 18 18 Blood Pressure 112/75 124/57 H 115/66 Blood Pressure Mean 87 79 82 Blood Pressure Source Monitor Monitor Blood Pressure Position Semi-Fowlers Semi-Fowlers Blood Pressure Location Left Arm Pulse Ox 100 100 100 Oxygen Delivery Method Room Air Room Air Room Air 12/18/24 18:22 12/18/24 18:30 12/18/24 19:22 Temperature 97.6 F L 97.6 F L 97.9 F Temperature Source Oral Oral Oral Pulse Rate 75 75 75 Respiratory Rate 18 16 18 Blood Pressure 119/70 119/70 103/86 H Blood Pressure Mean 86 86 91 Blood Pressure Source Monitor Monitor Monitor Blood Pressure Position Semi-Fowlers Semi-Fowlers Semi-Fowlers Blood Pressure Location Left Arm Left Arm Right Arm Pulse Ox 97 100 100 Oxygen Delivery Method Room Air Room Air Room Air 12/18/24 20:00 12/18/24 20:22 12/18/24 20:24 Temperature 97.8 F 97.8 F Temperature Source Oral Oral Pulse Rate 68 67 68 Respiratory Rate 18 18 18 Blood Pressure 95/66 128/55 H 128/55 H Blood Pressure Mean 75 79 79 Blood Pressure Source Monitor Monitor Blood Pressure Position Semi-Fowlers Semi-Fowlers Blood Pressure Location Left Arm Left Arm Pulse Ox 100 100 100 Oxygen Delivery Method Room Air Room Air Room Air 12/18/24 21:00 12/18/24 22:00 12/18/24 22:30 Temperature Temperature Source Pulse Rate 79 60 73 Respiratory Rate 18 18 17 Blood Pressure 114/56 L 116/64 122/52 H Blood Pressure Mean 75 81 72 Blood Pressure Source Blood Pressure Position Blood Pressure Location Pulse Ox 100 97 Oxygen Delivery Method Room Air Room Air 12/18/24 23:00 12/18/24 23:30 12/18/24 23:45 Temperature Temperature Source Pulse Rate 67 70 62 Respiratory Rate 18 16 15 Blood Pressure 105/74 84/54 L Blood Pressure Mean 84 65 Blood Pressure Source Blood Pressure Position Blood Pressure Location Pulse Ox 99 100 97 Oxygen Delivery Method Room Air 12/18/24 23:52 12/18/24 23:53 12/19/24 00:00 Temperature Temperature Source Pulse Rate 65 64 74 Respiratory Rate 13 18 18 Blood Pressure 88/46 L 87/43 L 92/52 L Blood Pressure Mean 59 55 66 Blood Pressure Source Blood Pressure Position Blood Pressure Location Pulse Ox 97 98 100 Oxygen Delivery Method 12/19/24 00:40 12/19/24 00:55 12/19/24 01:00 Temperature 97.9 F 97.9 F Temperature Source Oral Oral Pulse Rate 70 64 67 Respiratory Rate 18 16 16 Blood Pressure 81/46 L 94/47 L Blood Pressure Mean 57 62 Blood Pressure Source Monitor Monitor Blood Pressure Position Semi-Fowlers Semi-Fowlers Blood Pressure Location Left Arm Left Arm Pulse Ox 99 96 98 Oxygen Delivery Method Room Air Room Air 12/19/24 01:05 12/19/24 01:15 12/19/24 01:47 Temperature Temperature Source Pulse Rate 68 61 74 Respiratory Rate 17 13 18 Blood Pressure 88/58 L 95/53 L Blood Pressure Mean 68 64 Blood Pressure Source Blood Pressure Position Blood Pressure Location Pulse Ox 92 99 Oxygen Delivery Method 12/19/24 01:55 12/19/24 02:00 12/19/24 02:11 Temperature 97.8 F Temperature Source Oral Pulse Rate 65 70 Respiratory Rate 16 18 Blood Pressure 103/54 L 103/54 L 103/54 L Blood Pressure Mean 70 69 70 Blood Pressure Source Monitor Blood Pressure Position Semi-Fowlers Blood Pressure Location Left Arm Pulse Ox 97 100 Oxygen Delivery Method Room Air Room Air 12/19/24 02:30 12/19/24 02:51 12/19/24 03:00 Temperature 97.8 F 97.8 F Temperature Source Oral Oral Pulse Rate 60 66 84 Respiratory Rate 14 16 18 Blood Pressure 109/53 L 109/53 L 97/71 Blood Pressure Mean 71 71 79 Blood Pressure Source Monitor Monitor Blood Pressure Position Semi-Fowlers Semi-Fowlers Blood Pressure Location Left Arm Left Arm Pulse Ox 97 91 100 Oxygen Delivery Method Room Air Room Air 12/19/24 03:00 12/19/24 03:55 12/19/24 04:00 Temperature 98.7 F Temperature Source Oral Pulse Rate 71 66 72 Respiratory Rate 16 16 18 Blood Pressure 97/71 122/56 H 116/57 L Blood Pressure Mean 81 78 76 Blood Pressure Source Monitor Blood Pressure Position Semi-Fowlers Blood Pressure Location Left Arm Pulse Ox 98 97 98 Oxygen Delivery Method Room Air Room Air Room Air 12/19/24 05:00 12/19/24 06:00 12/19/24 07:00 Temperature Temperature Source Pulse Rate 93 61 63 Respiratory Rate 18 18 18 Blood Pressure 100/49 L 117/61 108/95 H Blood Pressure Mean 66 79 99 Blood Pressure Source Blood Pressure Position Blood Pressure Location Pulse Ox 100 99 98 Oxygen Delivery Method Room Air Room Air Room Air 12/19/24 07:32 12/19/24 09:00 12/19/24 10:00 Temperature Temperature Source Pulse Rate 77 60 63 Respiratory Rate 12 16 16 Blood Pressure 101/48 L 117/61 101/49 L Blood Pressure Mean 65 79 66 Blood Pressure Source Blood Pressure Position Blood Pressure Location Pulse Ox 97 99 100 Oxygen Delivery Method Room Air Room Air Room Air 12/19/24 11:43 12/19/24 12:00 12/19/24 12:45 Temperature Temperature Source Pulse Rate 63 59 L 68 Respiratory Rate 20 H 15 18 Blood Pressure 110/58 L 112/61 Blood Pressure Mean 75 77 Blood Pressure Source Blood Pressure Position Blood Pressure Location Pulse Ox 100 Oxygen Delivery Method Room Air [facility] <Dr. Kwame Mata, DO - Last Filed: 12/18/24 19:21> [facility] Narrative Medical decision making narrative: Differential diagnosis includes anemia, coagulopathy, electrolyte abnormality, cardiac dysrhythmia, cardiac ischemia, and anxiety. PT with INR and PTT will be obtained to assess for coagulopathy. EKG will be obtained to assess for cardiac dysrhythmia and cardiac ischemia. Patient had outpatient CBC and BMP performed earlier today. I do not feel these need to be repeated at this time. History & Record Review Additional record(s) reviewed:: Prior ED visit and Prior labs Lab Data Attestation: I reviewed the patient's lab results. Lab results narrative: PT with INR and PTT were reviewed and were essentially within normal limits. Blood type was A+ and antibody screen was negative. Labs: Laboratory Results - last 24 hr 12/18/24 12/18/24 12/19/24 12:32 12:32 00:08 WBC 6.1 RBC 2.66 L Hgb 8.2 L Hct 23.5 L MCV 88.3 D MCH 30.8 MCHC 34.9 D RDW Std Deviation 51.2 H RDW Coeff of Manjit 16.0 H Plt Count 132 L MPV 9.3 Immature Gran % (Auto) 0.500 Neut % (Auto) 69.3 Lymph % (Auto) 18.7 L [place] % (Auto) 9.8 Eos % (Auto) 1.2 Baso % (Auto) 0.5 Absolute Neuts (auto) 4.2 Absolute Lymphs (auto) 1.13 Nucleated RBC % 0 Blood Type A POSITIVE Antibody Screen NEGATIVE Crossmatch See Detail See Detail EKG Initial EKG: Attestation: I personally reviewed and interpreted this EKG as follows: Interpretation: Sinus Rhythm (75) and No Acute Injury Pattern Comments: EKG was obtained. On my independent interpretation, it showed a normal sinus rhythm with a rate of 75. [place] interval, QRS interval, and QTc intervals were all normal. [place] was normal. There are no acute ST or T wave changes. Prior EKG tracings: available for review Prior: Unchanged (11/23/2024) Management Discussion w/another healthcare provider: Hospitalist Treatment and Re-Evaluation :: Orthostatic vital signs were obtained and were positive. Patient was typed and crossmatched for 2 units of red blood cells. These will be transfused. Patient will be reevaluated after blood transfusion. Family reports patient has had black stools and has prior upper gastrointestinal bleeding. Patient was given a dose of Protonix here. Case was discussed with the hospitalist for admission. He stated the patient had to be transferred to higher level of care. He stated that the last time the patient was admitted here, they were unable to see the source of his bleeding due to a stricture from a previous surgery. Patient was seen at [facility] in the past. Patient was recently admitted there. Case was discussed with the transfer line there. Patient was accepted to the service of Dr. Santiago. Patient will be transferred there when a bed becomes available. Care of the patient will be turned over to the oncoming physician pending transfer. <Dr. Rachana Stinson MD - Last Filed: 12/19/24 01:39> [facility] Lab Data Labs: Laboratory Results - last 24 hr 12/18/24 12/18/24 12/19/24 12:32 12:32 00:08 WBC 6.1 RBC 2.66 L Hgb 8.2 L Hct 23.5 L MCV 88.3 D MCH 30.8 MCHC 34.9 D RDW Std Deviation 51.2 H RDW Coeff of Manjit 16.0 H Plt Count 132 L MPV 9.3 Immature Gran % (Auto) 0.500 Neut % (Auto) 69.3 Lymph % (Auto) 18.7 L [place] % (Auto) 9.8 Eos % (Auto) 1.2 Baso % (Auto) 0.5 Absolute Neuts (auto) 4.2 Absolute Lymphs (auto) 1.13 Nucleated RBC % 0 Blood Type A POSITIVE Antibody Screen NEGATIVE Crossmatch See Detail See Detail Treatment and Re-Evaluation :: Orthostatic vital signs were obtained and were positive. Patient was typed and crossmatched for 2 units of red blood cells. These will be transfused. Patient will be reevaluated after blood transfusion. Family reports patient has had black stools and has prior upper gastrointestinal bleeding. Patient was given a dose of Protonix here. Case was discussed with the hospitalist for admission. He stated the patient had to be transferred to higher level of care. He stated that the last time the patient was admitted here, they were unable to see the source of his bleeding due to a stricture from a previous surgery. Patient was seen at [facility] in the past. Patient was recently admitted there. Case was discussed with the transfer line there. Patient was accepted to the service of Dr. Santiago. Patient will be transferred there when a bed becomes available. Care of the patient will be turned over to the oncoming physician pending transfer. Patient was signed out to me by Dr. Mata pending open bed and transfer to [facility]. Patient was accepted there around 5 or 6 PM this evening. The 6-hour window was needed and discussed with hospitalist who recommended trying other facilities given we do not have the resources to help the patient here if he were to decompensate. Therefore I obtained a repeat hemoglobin and ordered an additional unit of blood to be given here in the emergency department while attempting to contact [facility] for any other facilities that have open beds. Was told by the hospice patient care secretary that CC looked at any open beds in the nearby facilities and there are none that would facilitate a faster transfer at this time. They did speak with [facility] whose surgeon/providers declined transfer given they reportedly do not have the resources for the patient. Will continue to monitor here while awaiting a bed at [facility]. <Dr. Yoan Hastings DO - Last Filed: 12/19/24 16:45> [facility] Narrative Medical decision making narrative: Differential diagnosis includes anemia, coagulopathy, electrolyte abnormality, cardiac dysrhythmia, cardiac ischemia, and anxiety. PT with INR and PTT will be obtained to assess for coagulopathy. EKG will be obtained to assess for cardiac dysrhythmia and cardiac ischemia. Patient had outpatient CBC and BMP performed earlier today. I do not feel these need to be repeated at this time. Addendum Yoan Hastings DO [id number] 12/19/2024 Nursing brought to my attention that the patient wants to leave AGAINST MEDICAL ADVICE his family members arrived at bedside I went in and had discussion. After discussion the patient states that he will leave AGAINST MEDICAL ADVICE he is not sitting here any longer he was able to tell me the risks of this including further bleeding leading to his . He was advised he should return with worsening symptoms or any other concerns or if he changes his mind. He verbalized understanding of this as well as family was bedside all question concerns answered he will leave AGAINST MEDICAL ADVICE. Lab Data Labs: Laboratory Results - last 24 hr 12/18/24 12/18/24 12/19/24 12:32 12:32 00:08 WBC 6.1 RBC 2.66 L Hgb 8.2 L Hct 23.5 L MCV 88.3 D MCH 30.8 MCHC 34.9 D RDW Std Deviation 51.2 H RDW Coeff of Manjit 16.0 H Plt Count 132 L MPV 9.3 Immature Gran % (Auto) 0.500 Neut % (Auto) 69.3 Lymph % (Auto) 18.7 L [place] % (Auto) 9.8 Eos % (Auto) 1.2 Baso % (Auto) 0.5 Absolute Neuts (auto) 4.2 Absolute Lymphs (auto) 1.13 Nucleated RBC % 0 Blood Type A POSITIVE Antibody Screen NEGATIVE Crossmatch See Detail See Detail Discharge Plan Triage Chief Complaint: Abn Labs ED Provider: Kwame Mata Dx/Rx/DC Orders Clinical Impression: Anemia, Kidney disease, History of aortic valve replacement, Upper gastrointestinal bleeding Instructions: ED Anemia, Type Not Specified (Adult) Prescriptions: No Action amlodipine 5 mg tablet 5 mg PO DAILY Qty: 30 11RF ferrous sulfate 325 mg (65 mg iron) tablet 325 mg PO QDAY Trelegy Ellipta 200-62.5-25 mcg blister with device 1 inh inhalation QDAY albuterol sulfate 2.5 mg /3 mL (0.083 %) solution for nebulization 2.5 mg inhalation Q6H calcium carbonate 500 mg calcium (1,250 mg) tablet 500 mg PO QDAY aspirin 81 mg tablet,delayed release (DR/EC) 81 mg PO DAILY Patient Comments: STOP PER DR. MCCLENDON PRIOR TO PROCEDURE rosuvastatin [Crestor] 5 mg tablet 5 mg PO DAILY acetaminophen 500 mg capsule 1,000 mg PO Q6H PRN (Reason: pain) albuterol sulfate 90 mcg/actuation HFA aerosol inhaler 2 inh inhalation Q6H PRN (Reason: wheezing) cholecalciferol (vitamin D3) 25 mcg (1,000 unit) capsule 25 mcg PO DAILY (DME) OXYGEN - Supplemental ([facility] INFORMATIONAL USE ONLY) 0 .ROUTE .MEDSUPPLY Patient Comments: 2lpm @[facility] and prn during day sucralfate 1 gram Tablet 1 g PO 0700,1100,1600 Qty: 90 0RF pantoprazole 40 mg Tablet,Delayed Release (Dr/Ec) 40 mg PO BID Qty: 60 0RF metoprolol tartrate 25 mg tablet 12.5 mg PO BID Qty: 90 3RF Primary Care Provider: Andrés Carrasco Referrals: Andrés Carrasco MD [Primary Care Provider, [facility]] - 3-5 Days Print Language: Kyrgyz Disposition Disposition: Against Medical Advice Discharge Date/Time: 12/19/24 13:17 D/C Safety Score for UGIB <Dr. Kwame Mata, - Last Filed: 12/18/24 19:21> Assessment [place] Bleeding Score (GBS): Stratifies upper GI bleeding patients who are "low-risk" and candidates for outpatient management. Sex: Male Hemoglobin, BUN, Recent Vital Signs: Hgb 8.2 g/dL (13.0-16.5) L 12/19/24 00:08 Pulse Rate [Standing (for 1 82 minute prior to obtaining)] Pulse Rate [Sitting (for 1 73 minute prior to obtaining)] Pulse Rate [Lying] 72 Pulse Rate 68 Blood Pressure [Standing (for 66/45 1 minute prior to obtaining)] Blood Pressure [Sitting (for 1 95/53 minute prior to obtaining)] Blood Pressure [Lying] 112/56 Blood Pressure 112/61 Hemoglobin, g/dL: 0-9 BUN, mg/dL: 28-70 Systolic blood pressure, mmH-99 Heart rate >/=100?: No Melena present?: Yes Recent Syncope?: No Hepatic Disease History?: No Cardiac failure present?: No Total Risk Score: 3 Score Interpretation: Score of 0: A GBS of 0 is a “Low Risk” GI bleed, and is highly sensitive (99.6% in a 2007 retrospective study) for predicting which patients did not require any “medical intervention”: blood transfusion, endoscopy, or surgery. This was confirmed in a 2009 Lanc study where patients with a score of 0 were actually discharged and had no GI bleeding mortality at 6 month followup Score above 0: A GBS greater than zero suggests a “High Risk” GI bleed that is likely to require “medical intervention”: transfusion, endoscopy, or surgery. A higher GBS also correlated with a higher likelihood of needing intervention Scores >/= 6 are associated with >50% risk of needing intervention <Dr. Rachana Stinson MD - Last Filed: 12/19/24 01:39> Assessment Sex: Male Hemoglobin, BUN, Recent Vital Signs: Hgb 8.2 g/dL (13.0-16.5) L 12/19/24 00:08 Pulse Rate [Standing (for 1 82 minute prior to obtaining)] Pulse Rate [Sitting (for 1 73 minute prior to obtaining)] Pulse Rate [Lying] 72 Pulse Rate 68 Blood Pressure [Standing (for 66/45 1 minute prior to obtaining)] Blood Pressure [Sitting (for 1 95/53 minute prior to obtaining)] Blood Pressure [Lying] 112/56 Blood Pressure 112/61 Total Risk Score: 3 <Dr. Yoan Hastings DO - Last Filed: 12/19/24 16:45> Assessment Sex: Male Hemoglobin, BUN, Recent Vital Signs: Hgb 8.2 g/dL (13.0-16.5) L 12/19/24 00:08 Pulse Rate [Standing (for 1 82 minute prior to obtaining)] Pulse Rate [Sitting (for 1 73 minute prior to obtaining)] Pulse Rate [Lying] 72 Pulse Rate 68 Blood Pressure [Standing (for 66/45 1 minute prior to obtaining)] Blood Pressure [Sitting (for 1 95/53 minute prior to obtaining)] Blood Pressure [Lying] 112/56 Blood Pressure 112/61 Total Risk Score: 3 D/C Safety Score for LGIB <Dr. Kwame Mata, - Last Filed: 12/18/24 19:21> Assessment Assessment Tool: Readmission and adverse event risk in patients with acute lower GI bleeding. Age, in years: >/= 70 Sex: Male Hemoglobin and Recent Vital Signs: Hgb 8.2 g/dL (13.0-16.5) L 12/19/24 00:08 Pulse Rate [Standing (for 1 82 12/18/24 13:11 minute prior to obtaining)] Pulse Rate [Sitting (for 1 73 12/18/24 13:11 minute prior to obtaining)] Pulse Rate [Lying] 72 12/18/24 13:11 Pulse Rate 68 12/19/24 12:45 Blood Pressure [Standing (for 66/45 12/18/24 13:11 1 minute prior to obtaining)] Blood Pressure [Sitting (for 1 12/18/24 13:11 minute prior to obtaining)] Blood Pressure [Lying] 112/56 12/18/24 13:11 Blood Pressure 112/61 12/19/24 12:00 Probability of safe discharge: 98% Total Risk Score: 3 Score Interpretation: Probability Percentage of safe discharge (absence of rebleeding, blood transfusion, therapeutic intervention, 28 day readmission, or ) Score of 8 or below: Consider discharge, with appropriate precautions. Score of 9 or above: Discharge NOT recommended. Consider admission with further workup and resuscitation as necessary. <Dr. Rachana Stinson MD - Last Filed: 12/19/24 01:39> Assessment Age, in years: >/= 70 Sex: Male Hemoglobin and Recent Vital Signs: Hgb 8.2 g/dL (13.0-16.5) L 12/19/24 00:08 Pulse Rate [Standing (for 1 82 12/18/24 13:11 minute prior to obtaining)] Pulse Rate [Sitting (for 1 73 12/18/24 13:11 minute prior to obtaining)] Pulse Rate [Lying] 72 12/18/24 13:11 Pulse Rate 68 12/19/24 12:45 Blood Pressure [Standing (for 66/12/18/24 13:11 1 minute prior to obtaining)] Blood Pressure [Sitting (for 1 12/18/24 13:11 minute prior to obtaining)] Blood Pressure [Lying] 112/56 12/18/24 13:11 Blood Pressure 112/61 12/19/24 12:00 Probability of safe discharge: 98% Total Risk Score: 3 <Dr. Yoan Hastings DO - Last Filed: 12/19/24 16:45> Assessment Age, in years: >/= 70 Sex: Male Hemoglobin and Recent Vital Signs: Hgb 8.2 g/dL (13.0-16.5) L 12/19/24 00:08 Pulse Rate [Standing (for 1 82 12/18/24 13:11 minute prior to obtaining)] Pulse Rate [Sitting (for 1 73 12/18/24 13:11 minute prior to obtaining)] Pulse Rate [Lying] 72 12/18/24 13:11 Pulse Rate 68 12/19/24 12:45 Blood Pressure [Standing (for 66/45 12/18/24 13:11 1 minute prior to obtaining)] Blood Pressure [Sitting (for 1 95/53 12/18/24 13:11 minute prior to obtaining)] Blood Pressure [Lying] 112/56 12/18/24 13:11 Blood Pressure 112/61 12/19/24 12:00 Probability of safe discharge: 98% Total Risk Score: 3
--- NOTE | 2024-12-18 12:16 | EKG12_ITS ---
Test Reason : ABNORMAL LABS Blood Pressure : */* mmHG Vent. Rate : 75 BPM Atrial Rate : 75 BPM P-R Int : 138 ms QRS Dur : 80 ms QT Int : 354 ms P-R-T Axes : 65 74 67 degrees QTcB Int : 395 ms Normal sinus rhythm Normal ECG Confirmed by Evgeny Jacobo ([id number]), school photograph editor TATI PEREZ ([id number]) on 12/19/2024 10:40:02 AM Referred By: Confirmed By: Evgeny Jacobo
[2024-12-18 12:50] LABS: Prothrombin Time (Protime)PT. 13.8 SECONDS (11.7-14.9)
[2024-12-18 12:51] LABS: Partial Thromboplast Time 23.9 Seconds (24.1-36.2)
[2024-12-18] MEDS: Pantoprazole Sodium 80 MG in 0.9% Normal Saline (50mL Bag) 15 ML 420 MG IV BOLUS (18:28)
[2024-12-19] VITALS (24 sets, daily range): BP systolic 81–122; BP diastolic 46–95; PULSE 59–93; RESP 12–20; TEMP 36.6–37.1; O2SAT 91–100
[2024-12-19 00:25] LABS: Hematocrit 23.5 % (40-54); Hemoglobin 8.2 g/dL (13.0-16.5); Immature Granulocytes Count 0.030 X10^3/uL (0.0-0.0); Mean Corp Hgb Conc 34.9 g/dL (32-36); Mean Corpuscular Volume 88.3 fL (80-94); Mean Platelet Vol. 9.3 fl (6.2-12.0); NRBC Flagged by Analyzer 0 % (0-5); Platelet Count 132 K/mm3 (150-450); RBC Distribution Width CV 16.0 % (11.6-14.6); RBC Distribution Width SD 51.2 fl (35.1-43.9); Red Blood Count 2.66 M/mm3 (4.6-6.2); White Blood Count 6.1 K/mm3 (4.4-11.0)
--- NOTE | 2024-12-19 01:04 | ED.RN ---
PER [facility] THEY HAVE 22 PATIENTS BOARDED AHEAD OF OUR PATIENT AND WILL NOT HAVE A BED FOR AT LEAST [address] WYLIE A[address] MEYER NOTIFIED FOR POSSIBLE ADMISSION WHICH SHE DECLINED DUE TO PATIENTS ACUITY. I REACHED OUT TO [facility] MAIN THEY ARE UNABLE TO FIND PLACEMENT AT ANY OTHER [facility] FACILITY. PATIENT REMAINS ON WAIT L IST AT [facility].
--- NOTE | 2024-12-19 08:06 | PCA ---
CALLED [facility] FOR A BED UPDATE @ [address] SAID IT WOULD BE DISCHARGE DEPENDANT. SHOULD BE AFTERNOON EARLY EVENING
--- NOTE | 2024-12-19 13:01 | ED.RN ---
Pt states "I want to go home, cook myself a good meal and ." This RN informed Dr. Hastings and placed social work consult.
--- NOTE | 2024-12-19 13:16 | ED.RN ---
Pt verbalizes frustration at waiting for transfer bed. Pt states "last time I got to go upstairs to an inpatient room and at least had my own bathroom and a tv!" Pt signed ama paperwork. IV's removed, wheelchair offered and provided to assist pt to exit.
== END 2024-12-19 13:17 | disposition left against medical advice (07) ==
PROVIDERS: Student in an Organized Health Care Education/Training Program; Emergency Provider Emergency Medicine; PCP Family Medicine; Visit Provider Emergency Medicine
DX: D64.9 Anemia, unspecified (principal); J44.9 Chronic obstructive pulmonary disease, unspecified; N18.32 Chronic kidney disease, stage 3b; I25.10 Atherosclerotic heart disease of native coronary artery without angina pectoris; E78.00 Pure hypercholesterolemia, unspecified; I12.9 Hypertensive chronic kidney disease with stage 1 through stage 4 chronic kidney disease, or unspecified chronic kidney disease; K92.2 Gastrointestinal hemorrhage, unspecified; Z79.51 Long term (current) use of inhaled steroids; Z79.82 Long term (current) use of aspirin; Z79.899 Other long term (current) drug therapy; Z87.891 Personal history of nicotine dependence; Z95.1 Presence of aortocoronary bypass graft
CPT/HCPCS: 36430; 82274; 85025; 85610; 85730; 86850; 86900; 86901; 93005; 96374; 96376; 99285; P9016; A4216; J2405

== ENCOUNTER → 2024-12-18 | Outpatient (CLI) | payer MEDICARE, SELFPAY ==
[2024-12-18 09:49] LABS: Ionized Calcium Order ORDER TUBE
[2024-12-18 10:00] LABS: Hematocrit 21.0 % (40-54); Hemoglobin 6.5 g/dL (13.0-16.5); Mean Corp Hgb Conc 31.0 g/dL (32-36); Mean Corpuscular Volume 94.2 fL (80-94); Mean Platelet Vol. 9.6 fl (6.2-12.0); Platelet Count 193 K/mm3 (150-450); RBC Distribution Width CV 15.9 % (11.6-14.6); RBC Distribution Width SD 54.4 fl (35.1-43.9); Red Blood Count 2.23 M/mm3 (4.6-6.2); White Blood Count 6.8 K/mm3 (4.4-11.0)
[2024-12-18 10:30] LABS: PTHIN 40 pg/mL (11-61)
[2024-12-18 10:44] LABS: Anion Gap 10 (5-15); BUN 63 mg/dL (4-19); BUN/Creat Ratio 41.5 RATIO (10-20); Calcium,Total 8.8 mg/dL (7.6-11.0); Carbon Dioxide 20.9 mmol/L (21.0-32.0); Chloride 107 mmol/L (98-108); Glucose 226 mg/dL (70-99); Potassium 4.7 mmol/L (3.3-5.1); Vitamin D,25 Hydroxy 22.3 ng/mL (30-100)
== END | disposition home or self-care (01) ==
LOC: MTLAB 08:44
PROVIDERS: PCP Family Medicine; Referring Provider Family Medicine; Visit Provider Family Medicine
DX: E83.51 Hypocalcemia (principal)
CPT/HCPCS: 36415; 80048; 82306; 83970; 84443; 85027

== ENCOUNTER 2024-12-20 21:58 | Emergency (ER) | payer MEDICARE, SELFPAY ==
[2024-12-20] VITALS (11 sets, daily range): BP systolic 69–110; BP diastolic 37–70; PULSE 78–90; RESP 14–22; TEMP 36.1–36.5; O2SAT 98–100; BMI 22.2
--- NOTE | 2024-12-20 22:13 | EDS_ITS ---
HPI History of Present Illness Chief Complaint: GI Bleed Narrative Narrative: Patient is a 74-year-old male with a past medical history of chronic kidney disease, duodenal ulcer, upper GI bleed, COPD, hyperlipidemia who presents to the emergency department with concern for GI bleed. Patient's was here recently and left AGAINST MEDICAL ADVICE and he is he came back today/this evening because he was on the verge of passing out. Per family member at bedside they note that he almost passed out twice and they were planning on bringing him here however given his symptoms they called EMS to have him brought here for further evaluation management. Patient states that he continues to have dark black stools. Denies any blood thinning medications [facility] Medical History UTI (urinary tract infection) Chronic kidney disease Duodenal ulcer Hypovolemic shock Acute blood loss anemia Acute upper gastrointestinal hemorrhage GI bleed COPD (chronic obstructive pulmonary disease) Bladder cancer Wears dentures Wears glasses Bruising Easy bruising High cholesterol Smoker Shortness of breath on exertion History of echocardiogram Cardiology follow-up encounter Stage 3b chronic kidney disease (CKD) Thrombocytopenia Chronic kidney insufficiency Pleural effusion Secondary pulmonary arterial hypertension Atherosclerotic heart disease of [place] coronary artery without angina pectoris Intention tremor Carotid stenosis, bilateral Hyperlipidemia Nonrheumatic aortic (valve) stenosis Essential hypertension Tobacco dependence Bilateral inguinal hernia Left carotid bruit Abdominal aortic aneurysm (AAA) Anemia Subcutaneous mass of back PUD (peptic ulcer disease) Cough Arthritis Home Medications Medication Instructions Recorded Last Taken Type aspirin 81 mg tablet,delayed 81 mg PO DAILY heart heal th 03/02/22 01/12/24 History release Held on 12/18/24. Instructions: MD Ordered rosuvastatin 5 mg tablet (Crestor) 5 mg PO DAILY uzma sterol 03/02/22 03/02/22 History amlodipine 5 mg tablet 5 mg PO DAILY #30 tabs 02/28 Unknown Rx cholecalciferol (vitamin D3) 25 25 mcg PO DAILY supple ment 10/27/23 Unknown History mcg (1,000 unit) capsule Held on 12/18/24. Instructions: MD Ordered metoprolol tartrate 25 mg tablet 12.5 mg (1/2 x 25 mg) PO BID #90 03/22/24 06/27/24 05:30 Rx tabs acetaminophen 500 mg capsule 1,000 mg PO Q6H PRN pain 06/13/24 Unknown History OXYGEN - Supplemental ([facility] 11/19/24 Unknown History INFORMATIONAL USE ONLY) albuterol sulfate 2.5 mg/3 mL 2.5 mg inhalation Q6H Unknown History (0.083 %) solution for nebulization calcium carbonate 500 mg PO QDAY 11/21/24 Unkn own History ferrous sulfate 325 mg (65 mg 325 mg PO QDAY 11/21/24 Unknown History iron) tablet Held on 12/18/24. Instructions: MD Ordered fluticasone fur. 200 mcg-umeclid 1 inh inhalation QDAY 11/21/24 Unknown History 62.5 mcg-vilant 25 mcg inhalat.powder (Trelegy Ellipta) pantoprazole 40 mg tablet,delayed 40 mg PO BID #60 tab s 11/21/24 Unknown Rx release sucralfate 1 gram tablet 1 g PO 0700,1100,1600 #90 ta bs 11/21/24 Unknown Rx albuterol sulfate 90 mcg/actuation 2 inh inhalation Q6 H PRN wheezing 12/18/24 Unknown History aerosol inhaler ondansetron HCl 8 mg tablet 8 mg PO Q8H PRN PRN nausea /vomiting 12/20/24 Unknown History Allergy/AdvReac Type Severity Reaction Status Date / Time No Known Allergies Allergy Verified 12/20/24 22:03 Family History Sister Asthma Mother Arthritis Diabetes Brother Cancer Unsure what kind- "just a lump on his neck" Surgical History Neoplasm of bladder Hx of inguinal hernia repair S/P inguinal hernia repair History of cardiac catheterization S/P AAA repair 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) History of left heart catheterization (11/27/18) History of aortic valve replacement (02/12/19) Social History household members: none Smoking Status: Former smoker quit status: has quit before alcohol intake: never substance use type: does not use caffeine: Yes Type: coffee Number of servings: 3 what type of physical activity do you participate in: other frequency: 3-4 times per week seatbelt use: always ROS ROS ED ROS Narrative Constitutional: Complains of lightheadedness denies any fevers or chills Cardiovascular: Denies chest pain Respiratory: Denies shortness of breath Abdomen: Complains of black stools as noted above denies any abdominal pain nausea vomiting : Denies any urinary symptoms Neurological: Denies any numbness, some tingling Musculoskeletal: Denies any back pain Skin: Denies any rashes or lesions EXAM Physical Exam Narrative Exam Narrative: General: Patient was pale lying in bed rest comfortably did not appear to be in acute distress Head: Atraumatic, normocephalic Eyes: PERRL bilaterally, EOMI bilaterally, no conjunctival injection noted Neck: Soft, supple, trachea midline Cardiovascular: Regular rate and rhythm Respiratory: Clear to auscultation bilaterally Abdomen: Soft, nondistended, nontender to palpation Extremities: Radial pulses +2/4 in the bilateral extremities Neurological: Patient follow commands knew that he was at [facility] year is 2024 Skin: Warm, dry, intact Const Vital Signs: 12/20/24 21:59 Temperature 97 F L Temperature Source Axillary Pulse Rate 87 Respiratory Rate 16 Blood Pressure 69/49 L Blood Pressure Mean 55 Pulse Ox 98 Oxygen Delivery Method Nasal Cannula Oxygen Flow Rate (L/min) 2 MDM MDM MDM Narrative Medical decision making narrative: Patient is a 74-year-old male who presented to the emergency department with a chief complaint of upper GI bleed with black tarry stools. On the differential diagnose includes but not limited to upper GI bleed secondary to peptic ulcer, gastritis, anemia. Once workup is obtained reviewed he will be reevaluated. Patient be typed and crossed will be given Protonix bolus followed by Protonix drip and 1 L of IV fluids. Patient's CBC reviewed and showed a white count of 8.1, hemoglobin 6.5, platelet count of 134. Patient's INR 1.2, PT of 15.1. Patient's sodium is 137, potassium normal 5, creatinine was 1.40 he has underlying chronic kidney disease. Patient AST and ALT were 13 and 8 respectively. Patient lipase normal at 43. EKG showed sinus rhythm with a rate of 90 bpm PA interval 156. CTA abd omen pelvis with IV contrast is pending. I reached out to [facility] Requesting transfer early on and they state that they do not have any beds I requested ICU bed and they stated they still do not have a bed. I area requested ER to ER transfer and they state that they can do not do this. I discussed this with the patient and family at bedside and they wish to proceed with staying in the [facility] system therefore I called to the transfer line for [facility] outside of [facility] And they referred me to [facility] and discussed with critical care there and they state that this was a complicated case and the patient had a multiple day stay in the SICU and stated that they would talk with the transfer line themselves. Transfer line called me back and I had discussion with the ER physician Dr. Frias, ICU attending Dr. Pacheco who will except the patient to ER ER transfer for further evaluation. Patient was ordered 2 units of trauma blood and type and cross for 3 units of packed red blood cells. Patient was also placed on Protonix as noted above. I discussed this with the patient and family at bedside they are agreeable this plan all question concerns answered. Critical care time 61 minutes Lab Data Labs: Laboratory Results - last 24 hr 12/20/24 22:11 WBC 8.1 RBC 2.13 L Hgb 6.5 L Hct 20.1 L MCV 94.4 H D MCH 30.5 MCHC 32.3 D RDW Std Deviation 53.7 H RDW Coeff of Manjit 16.0 H Plt Count 134 L MPV 9.7 Immature Gran % (Auto) 0.700 Neut % (Auto) 69.3 Lymph % (Auto) 18.1 L [place] % (Auto) 10.1 H Eos % (Auto) 1.4 Baso % (Auto) 0.4 Absolute Neuts (auto) 5.7 Absolute Lymphs (auto) 1.47 Nucleated RBC % 0.2 PT 15.1 H INR 1.2 APTT 24.4 Sodium 137 Potassium 5.0 Chloride 106 Carbon Dioxide 18.6 L Anion Gap 13 BUN 62 H Creatinine 1.40 H Estim Creat Clear Calc 40.99 L Est GFR (MDRD) Non-Af 53 L BUN/Creatinine Ratio 44.6 H Glucose 223 H Calcium 7.6 Total Bilirubin 0.31 AST 13 ALT 8 Alkaline Phosphatase 46 Total Protein 4.6 L Albumin 2.8 L Globulin 1.8 L Albumin/Globulin Ratio 1.5 Lipase 43 Blood Type A POSITIVE Antibody Screen NEGATIVE Crossmatch See Detail Discharge Plan Triage Chief Complaint: GI Bleed ED Provider: Yoan Hastings Dx/Rx/DC Orders Clinical Impression: Acute upper gastrointestinal hemorrhage, Anemia, Syncope, S/P AAA repair Prescriptions: No Action amlodipine 5 mg tablet 5 mg PO DAILY Qty: 30 11RF ferrous sulfate 325 mg (65 mg iron) tablet 325 mg PO QDAY Trelegy Ellipta 200-62.5-25 mcg blister with device 1 inh inhalation QDAY albuterol sulfate 2.5 mg /3 mL (0.083 %) solution for nebulization 2.5 mg inhalation Q6H calcium carbonate 500 mg calcium (1,250 mg) tablet 500 mg PO QDAY aspirin 81 mg tablet,delayed release (DR/EC) 81 mg PO DAILY Patient Comments: STOP PER DR. MCCLENDON PRIOR TO PROCEDURE rosuvastatin [Crestor] 5 mg tablet 5 mg PO DAILY acetaminophen 500 mg capsule 1,000 mg PO Q6H PRN (Reason: pain) albuterol sulfate 90 mcg/actuation HFA aerosol inhaler 2 inh inhalation Q6H PRN (Reason: wheezing) cholecalciferol (vitamin D3) 25 mcg (1,000 unit) capsule 25 mcg PO DAILY (DME) OXYGEN - Supplemental ([facility] INFORMATIONAL USE ONLY) 0 .ROUTE .MEDSUPPLY Patient Comments: 2lpm @HS and prn during day sucralfate 1 gram Tablet 1 g PO 0700,1100,1600 Qty: 90 0RF pantoprazole 40 mg Tablet,Delayed Release (Dr/Ec) 40 mg PO BID Qty: 60 0RF ondansetron HCl 8 mg tablet 8 mg PO Q8H PRN PRN (Reason: nausea/vomiting) metoprolol tartrate 25 mg tablet 12.5 mg PO BID Qty: 90 3RF Primary Care Provider: Andrés Carrasco Referrals: Andrés Carrasco MD [Primary Care Provider, Family Practice] Print Language: Frisian Disposition Disposition: DC/Tx to Another Type of HCF
[2024-12-20] MEDS: 0.9% Normal Saline (1000mL) 1,000 ML 999 ML IV (22:14)
--- OUTSIDE RECORDS SUMMARY | 2024-12-20 22:21 | XMS RPT_ITS | CCD ---
Author Organization [facility] Care Team Providers Care Director Writing Name Role Phone Padmini Carrasco MD Primary Care Provider Dr. Ezekiel Carrasco Primary Care Provider [phone] Dr. Ezekiel Carrasco Referring Provider Dr. Raheem Farrar Attending Provider [phone] Padmini Carrasco MD Primary Care Provider Dr. Ezekiel Carrasco Primary Care Provider [phone] Dr. Ezekiel Carrasco Referring Provider Moris MINE MOTOR ENGINEER, MINE MOTOR ENGINEER-C Tc Larson Attending Provider Dr. Nhan Garland Emergency Provider Dr. Beatris Banks Attending Provider Dr. Beatris Banks Admit Provider Dr. Beatris Banks Other Provider Randal MINE MOTOR ENGINEER, MINE MOTOR ENGINEER-C Carmina Attending Provider [phone] Dr. Kwame Alex Attending Provider [phone] Raheem Farrar Attending Provider [phone] Biedshilohartrung ACUNA PA Tonia Attending Provider [phone] Evelioedlior ACUNA, PA Tonia Other Provider Dr. Ezekiel Carrasco Primary Care Provider [phone] Dr. Nhan Garland Emergency Provider Dr. Beatris Banks Attending Provider Dr. Beatris Banks Admit Provider Dr. Beatris Banks Other Provider Dr. Ezekiel Carrasco Referring Provider Moris MINE MOTOR ENGINEER, MINE MOTOR ENGINEER-C Tc Larson Attending Provider Randal MINE MOTOR ENGINEER, MINE MOTOR ENGINEER-C Carmina Attending Provider [phone] Dr. Kwame Alex Attending Provider Gregory ACUNA, PA Tonia Referring Provider Dr. Raheem Farrar Attending Provider Gregory PA, PA Tonia Attending Provider Gregory ACUNA, PA Tonia Other Provider Randal MINE MOTOR ENGINEER, MINE MOTOR ENGINEER-C Carmina Referring Provider [phone] Randal SLAUGHTER, MINE MOTOR ENGINEER-C Carmina Other Provider Dr. Noe Suarez Attending [...] SLAUGHTER, SUKHJINDER-C Carmina Attending Provider Benjamin SLAUGHTER, MINE MOTOR ENGINEER-C Farheen Attending Provider Dr. Ezekiel Carrasco Primary Care Provider [phone] Dr. Ezekiel Carrasco Referring Provider Randal MINE MOTOR ENGINEER, MINE MOTOR ENGINEER-C Carmina Attending Provider [phone] Benjamin MINE MOTOR ENGINEER, MINE MOTOR ENGINEER-C Farheen Attending Provider Dr. Raheem Farrar Attending Provider Luna CALLE, Dr. Bowen Primary Care Provider Eran CALLE, Dr. Camarillo Attending Provider [phone] Eran CALLE, Dr. Camarillo Referring Provider Eran CALLE, Dr. Camarillo Other Provider Luna CALLE, Dr. Bowen Referring Provider Randal MINE MOTOR ENGINEER-C, Carmina Attending Provider Randal MINE MOTOR ENGINEER-C, Carmina Referring Provider Luna CALLE, Dr. Bowen Attending Provider [phone] Dr. Jeffery Turpin DO Emergency Provider Luna CALLE, Dr. Bowen Primary Care Provider Luna CALLE, Dr. Bowen Referring Provider Dr. Jeffery Turpin DO Attending Provider Catrachito CALLE, Dr. Jose J Small Attending Provider Catrachito CALLE, Dr. Jose J Small Referring Provider [phone] Nito Jaramillo Attending Provider [phone] Luna CALLE, Dr. Bowen Primary Care Provider Randal MINE MOTOR ENGINEER-C, Carmina Attending Provider Catrachito CALLE, Dr. Jose J Small Admit Provider Padmini aCrrasco MD Primary Care Provider Jose J Winston MD Unavailable Vicente RN, Karen Carrasco MD, Dr. Bowen Primary Care Provider Luna CALLE, Dr. Bowen Referring Provider [phone] Benjamin SLAUGHTER-C, Farheen Attending Provider Abrahan CALLE, Stacy Ortega Unavailable Darren CALLE, Luigi Unavailable Riccardo RN, Matthew Unavailable Unavailable Tita DO, Lakeisha Irving Unavailable Amol STEARNS, Antoni Unavailable Unavailabl e Luna CALLE, Dr. Bowen Primary Care Provider Luna CALLE, Dr. Bowen Referring Provider Catrachito CALLE, Dr. Jose J Small Attending Provider [phone] Catrachito CALLE, Dr. Jose J Small Referring [...] Mariel HINSON, Dr. Whitlock Nurse Practitioner Harjinder MINE MOTOR ENGINEER-C, Summer Nurse Practitioner Ana MINE MOTOR ENGINEER-C, Oxana Nurse Practitioner Minda Gonzalez Nurse Practitioner Nathaniel CALLE, Dr. Wilkes Nurse Practitioner Ann CALLE, Dr. Dugan Nurse Practitioner Erick CALLE, Dr. Liu Nurse Practitioner [phone] Yogesh HINSON, Dr. Chang Nurse Practitioner Leandra CALLE, Dr. Jatinder Loya Nurse Practitioner Van CALLE, Dr. Denise Nurse Practitioner Jarad CALLE, Dr. Deal Nurse Practitioner Anabel CALLE, Dr. Ott Nurse Practitioner Bruno CALLE, Dr. Randall Nurse Practitioner [phone] Jose CALLE, Dr. Mac Nurse Practitioner [phone] Harsh CALLE, Dr. Gil Nurse Practitioner [phone] Gideon CALLE, Dr. Dobson Nurse Practitioner Dean CALLE, Dr. Iniguez Nurse Practitioner Unavail able Marely CALLE, Dr. Lechuga Nurse Practitioner [phone] Indira CALLE, Dr. Perez Nurse Practitioner Jayme CALLE, Dr. Michael Nurse Practitioner Khurram CALLE, Dr. Forbes Nurse Practitioner [phone] Ruby HINSON, Dr. Mcgowan Nurse Practitioner Ann CALLE, Dr. Silva Nurse Practitioner [phone] Vladimir CALLE, Dr. Biggs Nurse Practitioner Narayan HINSON, Dr. Wheeler Nurse Practitioner [phone] Arnold CALLE, Dr. Wiseman Nurse Practitioner [phone] Alfred CALLE, Dr. Ivory Nurse Practitioner Elias CALLE, Dr. Sen Nurse Practitioner Mariel HINSON, Dr. Whitlock Attending Physician Mariel HINSON, Dr. Whitlock Referring Provider Jasmyne CALLE, Dr. Suzanne Potts Nurse Practitioner MatthewSilvestre HINSON, Dr. Andujar [facility] t Physician Mariel HINSON, Dr. Whitlock Nurse Practitioner Jasmyne CALLE, Dr. Suzanne Potts Attending Physician Jasymne CALLE, Dr. Suzanne Potts Referring Provider Jasmyne CALLE, Dr. Suzanne Potts Admitting Physician Raymundo CALLE, Dr. Dove Nurse Practitioner Harjinder MINE MOTOR ENGINEER-C, Summer Nurse Practitioner Ana MINE MOTOR ENGINEER-C, [place] Nurse Practitioner Kellen ACUNA, Minda Nurse Practitioner Nathaniel CALLE, Dr. Wilkes Nurse Practitioner Ann CALLE, Dr. Dugan Nurse Practitioner Erick CALLE, Dr. Liu Nurse Practitioner [phone] Yogesh HINSON, Dr. Chang Nurse Practitioner [phone] Leandra CALLE, Dr. Jatinder Loya Nurse Practitioner Van CALLE, Dr. Denise Nurse Practitioner Jarad CALLE, Dr. Deal Nurse Practitioner [phone] Anabel CALLE, Dr. Ott Nurse Practitioner Bruno CALLE, Dr. Randall Nurse Practitioner Jose CALLE, Dr. Mac Nurse Practitioner [phone] Harsh CALLE, Dr. Gil Nurse Practitioner [phone] Gideon CALLE, Dr. Dobson Nurse Practitioner [phone] Dean CALLE, Dr. Iniguez Nurse Practitioner Unavail payam Yap MD, Dr. Lechuga Nurse Practitioner [phone] Indira CALLE, Dr. Perez Nurse Practitioner [phone] Jayme CALLE, Dr. Michael Nurse Practitioner Khurram CALLE, Dr. Forbes Nurse Practitioner [phone] Ruby HINSON, Dr. Mcgowan Nurse Practitioner Ann CALLE, Dr. Silva Nurse Practitioner Vladimir CALLE, Dr. Biggs Nurse Practitioner Narayan HINSON, Dr. Wheeler Nurse Practitioner Arnold CALLE, Dr. Wiseman Nurse Practitioner [phone] Alfred CALLE, Dr. Ivory Nurse Practitioner Elias CALLE, Dr. Sen Nurse Practitioner Luna CALLE, Dr. Bowen Primary Care Physicia n Luna CALLE, Dr. Bowen Referring Provider Benjamin MINE MOTOR ENGINEER-C, Farheen Attending Physician Tita HINSON, Dr. Cruz Attending Physician Tita HINSON, Dr. Cruz Referring Provider [facility] , [facility] Mariel HINSON, Dr. Whitlock Attending Physician Mariel HINSON, Dr. Whitlock Referring Provider Mariel HINSON, Dr. Whitlock Nurse Practitioner Jasmyne CALLE, Dr. Suzanne Potts Attending Physician Jasmyne CALLE, Dr. Suzanne Potts Nurse Practitioner Jasmyne CALLE, Dr. Suzanne Potts Admitting Physician Jasmyne CALLE, Dr. Suzanne Potts Referring Provider Raymundo CALLE, Dr. Dove Nurse Practitioner Harjinder MINE MOTOR ENGINEER-C, Summer Nurse Practitioner Ana MINE MOTOR ENGINEER-C, [place] Nurse Practitioner Minda Gonzalez Nurse Practitioner Nathaniel CALLE, Dr. Wilkes Nurse Practitioner Ann CALLE, Dr. Dugan Nurse Practitioner Erick CALLE, Dr. Liu Nurse Practitioner Yogesh HINSON, Dr. Chang Nurse Practitioner [phone] Leandra CALLE, Dr. Jatinder Loya Nurse Practitioner [phone] Van CALLE, Dr. Denise Nurse Practitioner Jarad CALLE, Dr. Deal Nurse Practitioner Anabel CALLE, Dr. Ott Nurse Practitioner Bruno CALLE, Dr. Randall Nurse Practitioner [phone] Jose CALLE, Dr. Mac Nurse Practitioner Harsh CALLE, Dr. Gil Nurse Practitioner Gideon CALLE, Dr. Dobson Nurse Practitioner Dean CALLE, Dr. Iniguez Nurse Practitioner Unavail able Marely CALLE, Dr. Lechuga Nurse Practitioner Indira CALLE, Dr. Perez Nurse Practitioner Jayme CALLE, Dr. Michael Nurse Practitioner Khurram CALLE, Dr. Forbes Nurse Practitioner Ruby DO, Dr. Mcgowan Nurse Practitioner Ann CALLE, Dr. Silva Nurse Practitioner [phone] Vladimir CALLE, Dr. Biggs Nurse Practitioner Narayan HINSON, Dr. Wheeler Nurse Practitioner [phone] Arnold CALLE, Dr. Wiesman Nurse Practitioner [phone] Alfred CALLE, Dr. Ivory Nurse Practitioner Elias CALLE, Dr. Sen Nurse Practitioner [phone] Luna CALLE, Dr. Bowen Attending Physician Dr. Jeffery Turpin DO Emergency Department Physic cynthia Dr. Chet Valdivia DO Admitting Physician Dr. Chet Valdivia DO Nurse Practitioner Kylee HINSON, Dr. Moseley Attending Physician Shea HINSON, Dr. Rosenberg Attending Physician Raymundo CALLE, Dr. Dove Referring Provider Kylee HINSON, Dr. Moseley Nurse Practitioner [phone] Pay DO, Dr. Martinez Attending Physician Pay DO, Dr. Martinez Emergency Department Physici an LISA GONZALEZ Admitting Krista vailable JUAN MARIE Referring Unavailable PADMINI CARRASCO Primary Care Unavailabl e MARV RAZO Attending Unavailable EMILIA GREEN Consulting Unavailable KATARINA MOORE Admitting Unavailable SUZANNE MEDLEY Referring Unavailable PADMINI CARRASCO Primary Care Unavailabl e TANIA TOSCANO Attending Unavailable CYNTHIA LEVINE Consulting Unavailable ABRAHAN, STACY F Attending Unavailable PADMINI CARRASCO Primary Care Unavailabl e ABRAHAN, STACY F Referring Unavailable PADMINI CARRASCO Primary Care Unavailabl e ABRAHAN, STACY F Referring Unavailable PADMINI CARRASCO Primary Care Unavailabl e ABRAHAN, STACY F Attending Unavailable PADMINI CARRASCO Primary Care Unavailabl e ABRAHAN, STACY F Admitting Unavailable ABRAHAN, STACY F Attending Unavailable ABRAHAN, STACY F Referring Unavailable PADMINI CARRASCO Primary Care Unavailabl e LUIGI BANKS Attending Unavailable PADMINI CARRASCO Primary Care Unavailabl e PADMINI CARRASCO Primary Care Unavailabl e ABRAHAN, STACY F Referring Unavailable PADMINI CARRASCO Primary Care Unavailabl e SELF Referring Unavailable PADMINI CARRASCO Primary Care Unavailabl e LAKEISHA DAWKINS Attending Unavailable LAKEISHA DAWKINS Referring Unavailable PADMINI CARRASCO Primary Care Unavailabl e PADMINI CARRASCO B Primary Care Unavailabl e PADMINI CARRASCO B Primary Care Unavailabl e PADMINI CARRASCO Primary Care Unavailabl e PADMINI CARRASCO Primary Care Unavailabl e LAKEISHA DAWKINS Referring Unavailable PADMINI CARRASCO Primary Care Unavailabl e CODEY CHRISTIANSON Attending Unavailable PADMINI CARRASCO Primary Care Unavailabl e JOSE J WINSTON Referring Unavailable CODEY CHRISTIANSON Referring Unavailable PADMINI CARRASCO Primary Care Unavailabl e PADMINI CARRASCO Primary Care [facility]ailabl e [facility] Primary Care Unavailabl e BOB OTERO Attending Unavailable PADMINI CARRASCO Primary Care Unavailabl e PADMINI CARRASCO Primary Care Unavailabl e [facility] Lynda Primary Care Unavailabl e LUIGI BANKS Referring Unavailable PADMINI CARRASCO Primary Care Unavailabl e PADMINI CARRASCO Primary Care Unavailabl e [facility] Howell Primary Care Unavailabl e LAKEISHA DAWKINS Attending Unavailable PADMINI CARRASCO Primary Care Unavailabl e LUIGI BANKS Attending Unavailable PADMINI CARRASCO Primary Care Unavailabl e STACY GAUTHIER Referring Unavailable PADMINI CARRASCO Primary Care Unavailabl e LUIGI BANKS Attending Unavailable PADMINI CARRASCO Primary Care Unavailabl e LAKEISHA DAWKNIS Referring Unavailable PADMINI CARRASCO Primary Care Unavailabl e PADMINI CARRASCO Primary Care Unavailabl e PADMINI CARRASCO Primary Care Unavailabl e LUIGI BANKS Attending Unavailable PADMINI CARRASCO Primary Care Unavailabl e PADMIIN CARRASCO Primary Care Unavailabl e LAKEISHA DAWKINS Referring Unavailable CODEY CHRISTIANSON Referring Unavailable PADMINI CARRASCO Primary Care Unavailabl e CHRISTIANSONPAO JOSHIA Referring Unavailable PADMINI CARRASCO Primary Care Unavailabl e PADMINI CARRASCO Primary Care Unavailabl e LUIGI BANKS Attending Unavailable PADMINI CARRASCO Primary Care Unavailabl e PADMINI CARRASCO Primary Care Unavailabl e PADMINI CARRASCO Primary Care Unavailabl e PADMINI CARRASCO Primary Care Unavailabl e PADMINI CARRASCO Primary Care Unavailabl e LUIGI BANKS Attending Unavailable PADMINI CARRASCO Primary Care Unavailabl e PADMINI CARRASCO Primary Care Unavailabl e PADMINI CARRASCO Primary Care Unavailabl e PADMINI CARRASCO Primary Care Unavailabl e PADMNII CARRASCO Primary Care Unavailabl e PADMINI CARRASCO Primary Care Unavailabl e PADMINI CARRASCO Primary Care Unavailabl e PADMINI CARRASCO Primary Care Unavailabl e LUIGI BANKS Attending Unavailable [facility]LOAF[facility] Primary Care Unavailabl e RANNEY, CHRISTOPHER B Primary Care Unavailabl e RANNEY, CHRISTOPHER B Primary Care Unavailabl e LAKEISHA DAWKINS Referring Unavailable RANSUGARLOAF, [facility] Primary Care Unavailabl e RANNEY, [facility] Primary Care Unavailabl e LUIGI BANKS Attending Unavailable RANSUGARLOAF, CHRISTOPHER B Primary Care Unavailabl e RANNEY, CHRISTOPHER B Primary Care Unavailabl e RANNEY, CHRISTOPHER B Primary Care Unavailabl e [facility]NEY, [facility] Primary Care Unavailabl e Ranney, Christopher Attending Unavailable Ranney, Christopher Referring Unavailable [facility] Unavailable [facility], [facility] Primary Care Unavailable Ana Barillas Attending Unavailable Ana Barillas Referring Unavailable Jose J Winston Attending Unavailable Catrachito, Jose J Small Admitting Unavailable CatrachitoJose J Referring Unavailable [facility] [place] Primary Care Unavailable [facility] [place] Primary Care Unavailable Jeffery Turpin Attending Unavailable [facility], [place] Primary Care Unavailable Randal MINE MOTOR ENGINEER, Carmina Attending Unavailable Randal MINE MOTOR ENGINEER, Carmina Referring Unavailable [facility], [place] Primary Care Unavailable Mariel, Kamlesh Attending Unavailable White Suzanne L Admitting Unavailable Raymundo, Derrell Consulting Unavailable White Suzanne L Referring Unavailable Kamlesh Floyd Consulting Unavailable Summer Grande Consulting Unavailable Oxana Camarillo Consulting Unavailable Minda Foreman Consulting Unavailable Chung Armstrong Consulting Unavailable Ritchie Juarez Consulting Unavailable Noe Suarez Consulting Unavailable Bernardo Zuñiga Consulting Unavailable Jatinder Mobley Consulting Unavailable Howie Araujo Consulting Unavailable Say Abraham Consulting Unavailable Namrata Little Consulting Unavailab Prakash Pride Consulting Unavailable Bubba Garcia Consulting Unavailable Jeffery House Consulting Unavailable Olya Meneses Consulting Unavailable Geetha Moran Consulting Unavailable Alexandrea Yap Consulting Unavailable Beatriz Jacobsontam Consulting Unavailable Alec Delacruz Consulting Unavailable Andrei Paulson Consulting Unavailable Juan M Beltran Consulting Unavailable Ricardo Juarez Consulting Unavailable Dian Gilbert Consulting Unavailable Liam Busch Consulting Unavailable Bowen Barrett Consulting Unavailable Dianelys Simon Consulting Unavailabl Mckinley Moses Consulting Unavailable Ranney, Zacer Attending Unavailable [facility]available Ranney, Christopher Primary Care Unavailable Lakeisha Dawkins Attending Unavailable Lakeisha Dawkins Referring Unavailable Ranney, Christopher Referring Unavailable CalabrettaAna Attending Unavailable [facility], [facility] Primary [facility] Unavailable Catrachito, Jose J Small Referring Unavailable Catrachito, Jose J Small Attending Unavailable Ranney, Christopher Primary Care Unavailable Ranney, Christopher Referring Unavailable Carmina Tee NP Attending Unavailable [facility] Primary Care Unavailable ShashiettaAna Consulting Unavailable Ranney, Christopher Primary Care Unavailable Ana Barillas Attending Unavailable Samuelabretta Ana Referring Unavailable Ranney, Christopher Attending Unavailable [facility], [facility] Care Unavailable [facility], [facility] Primary Care Unavailable Juan Marie Attending Unavailable [facility], [facility] Primary Care Unavailable Kwame Mata Attending Unavailable Ranney, Christopher Attending Unavailable Ranney, Christopher Primary Care Unavailable Ranney, Christopher Referring Unavailable Raymundo, Derrell Consulting Unavailable Pradip Pichardo Attending Unavailable [facility], [facility] Primary Care Unavailable Chet Valdivia Admitting Unavailable Friend, Kamlesh Consulting Unavailable Summer Grande Consulting Unavailable Oxana Camarillo Consulting Unavailable Minda Foreman Consulting Unavailable Chet Valdivia Consulting Unavailable [facility], [facility] Primary Care Unavailable Ranney, Christopher Referring Unavailable Nito Rosales Attending Unavailable CatrachitoJose J Attending Unavailable Ranney, Christopher Primary Care Unavailable CatrachitoJose J Referring Unavailable CatrachitoJose J Attending Unavailable Catrachito, Austin Referring Unavailable Ranney, Christopher Primary Care Unavailable Ranney, Christopher Primary Care Unavailable Ranney, Christjeffreyer Attending Unavailable Ranney, Christopher Referring Unavailable Ranney, Christopher Primary Care Unavailable Chet Valdivia Attending Unavailable Ranney, Christopher Primary Care Unavailable Friend, Kamlesh Consulting Unavailable White Suzanne L Attending Unavailable White, Suzanne L Referring Unavailable White, Suzanne L Consulting Unavailable Ranney, Christopher Primary Care Unavailable Friend, Kamlesh Referring Unavailable Friend, Kamlesh Attending Unavailable Friend, Kamlesh Consulting Unavailable Raymundo, Derrell Consulting Unavailable Ranney, Christopher Primary Care Unavailable Pradip Pichardo Attending Unavailable Chet Valdivia Admitting Unavailable Kamlesh Floyd Consulting Unavailable Summer Grande Consulting Unavailable Oxana Camarillo Consulting Unavailable Minda Foreman Consulting Unavailable Chet Valdivia Consulting Unavailable Pradip Pichardo Consulting Unavailable Derrell Fonseca Referring Unavailable Friend, Kamlesh Attending Unavailable Padmini Carrasco Primary Care Unavailable Padmini Carrasco Referring Unavailable Carmina Tee NP Attending Unavailable Padmini Carrasco Primary Care Unavailable Padmini Carrasco Referring Unavailable Benjamin MINE MOTOR ENGINEER, Farheen Attending Unavailable Medications Current Medications Medication Drug Class(es) Dates Sig (Normalized) Sig (Original) acetaminophen 500 mg oral capsule (20 sources) Start: 06-13-2024 Start: 01-06-2022 End: 10-24-2023 Start: 01-01-2022 End: 10-24-2023 take 2 tablets by mouth every four hours as needed for pain Acetaminophen 325 mg tablet Discontinued 650 mg PO Q4H as needed for Pain January 06, 2022 1:00am October 24, 2023 8:28am Comment on above: Take 2 tablets by mo uth every 4 hours. albuterol 0.83 mg/ml inhalat ion solution (20 sources) beta2-Adrenergic Agonist Start: 11-21-2024 Start: 11-21-2024 Start: 03-02-2022 End: 10-24-2023 Start: 03-02-2022 End: 10-24-2023 take 2.5 mg by inhalation four times daily as needed Albuterol Sulfate 2.5 mg /3 mL (0.083 %) solution for nebulization Discontinued 2.5 mg INHALATION 4 TIMES DAILY as needed for Shortness Of Breath March 02, 2022 1:00am October 24, 2023 8:28am Start: 03-14-2019 End: 10-24-2023 Start: 03-14-2019 End: 10-24-2023 Albuterol Sulfate 90 [...] hours as needed for Wheezing/Shortness of Breath. amLODIPine 5 mg oral tablet (20 sources) Dihydropyridine Calcium Channel Jami Start: 4 aspirin 81 mg delayed release oral tablet (20 sources) Platelet Aggregation Inhibitor, Nonsteroidal Anti-inflammatory Drug Start: 0 take 1 tablet by mouth once daily aspirin 81 mg chewable tablet Take 1 tablet by mouth once daily. 30 tablet 02/21/2019 Active Start: 12-06-2018 End: 03-02-2022 Start: 05-14-2018 End: 11-01-2018 Comment on above: Take 1 tablet by darryl once daily. calcium carbonate 1250 mg or al tablet (20 sources) Start: 11-21-2024 Start: 11-21-2024 Start: 10-27-2023 End: 06-13-2024 Start: 02-28-2023 End: 10-24-2023 cholecalciferol 0.025 mg ora l capsule (20 sources) Vitamin D Start: 10-27-2023 Start: 03-02-2022 End: 10-24-2023 take 1 capsule by mouth once ezra ly cholecalciferol, vitamin D3, (VITAMIN D-3) 10 mcg (400 unit) cap Take 400 Units by mouth once daily. Active ferrous sulfate 325 mg oral tablet (19 sources) Start: 11-21-2024 Start: 11-21-2024 Start: 02-28-2023 End: 10-24-2023 Wgwlsutrlme-Hcsrigpcv-Kifdfo er (20 sources) Start: 11-21-2024 Start: 06-13-2024 End: 11-18-2024 Start: 06-13-2024 Fluticasone-Um eclidin-Vilanter (Trelegy Ellipta) 200-62.5-25 mcg blister with device Active 1 NMA INHALATION DAILY as needed for SOB June 13, 2024 12:00am Complies with drug therapy Start: 06-13-2024 Start: 06-13-2024 Fluticasone-Um eclidin-Vilanter (Trelegy Ellipta) 200-62.5-25 mcg blister with device Active 1 NMA INHALATION DAILY as needed for SOB June 13, 2024 12:00am Start: 03-23-2024 End: 06-13-2024 Start: 03-23-2024 End: 06-13-2024 Glodgtpccou-Ebtkxhssl-Yxesxz er (Trelegy Ellipta) 200-62.5-25 mcg blister with device Discontinued 1 NMA INHALATION DAILY 60 March 23, 2024 1:57pm June 13, 2024 10:19am Start: 03-23-2024 End: 06-13-2024 Hcglrffdwco-Hkcwnzheu-Tyobua er (Trelegy Ellipta) 200-62.5-25 mcg blister with device Discontinued 1 NMA INHALATION DAILY March 23, 2024 1:57pm June 13, 2024 10:19am Start: 03-23-2024 Fluticasone-Um eclidin-Vilanter (Trelegy Ellipta) 200-62.5-25 mcg blister with device Active 1 NMA INHALATION DAILY March 23, 2024 1:57pm Start: 01-27-2023 End: 03-23-2024 Start: 01-27-2023 End: 03-23-2024 Bqmpvqwmdvc-Sttmjzfkz-Iwjtsz er (Trelegy Ellipta) 200-62.5-25 mcg blister with device Discontinued 1 NMA INHALATION DAILY 60 January 27, 2023 1:00am March 23, 2024 1:58pm Start: 01-27-2023 End: 03-23-2024 Mevkysvuybn-Poqjztgmb-Aqkrvx er (Trelegy Ellipta) 200-62.5-25 mcg blister with device Discontinued 1 NMA INHALATION DAILY January 27, 2023 1:00am March 23, 2024 1:58pm Start: 01-27-2023 Fluticasone-Um eclidin-Vilanter (Trelegy Ellipta) 200-62.5-25 mcg blister with device Active 1 INH INHALATION DAILY January 27, 2023 1:00am Start: 01-27-2023 Fluticasone-Um eclidin-Vilanter (Trelegy Ellipta) 200-62.5-25 mcg blister with device Active 1 INH INHALATION DAILY January 27, 2023 12:00am hbdqobhmzya-nwfcrduwc-pctuxw er (TRELEGY ELLIPTA) 200-62.5-25 mcg inhalation powder (20 sources) take 1 puff(s) by inhalation once daily vkzhgjptloa-qrxarjclj-qhgpkslx (TRELEGY ELLIPTA) 200-62.5-25 mcg inhalation powder Inhale 1 puff as instructed once daily. Active lisinopril 10 mg oral tablet (20 sources) Angiotensin Converting Enzyme Inhibitor S t a r t : 0 8 - 1 2 - 2 0 2 1 take 10 mg by mouth once daily Lisinopril Active 10 MG PO DAILY September 17, 2020 11:00pm Start: 11-01-2018 End: 03-14-2019 Comment on above: Take 10 mg by mouth once daily. pantoprazole 40 mg delayed release oral tablet (3 sources) Proton Pump Inhibitor Start: 11-21-2024 Start: 11-21-2024 rosuvastatin calcium 5 mg or al tablet (20 sources) HMG-CoA Reductase Inhibitor Start: 03-19-2020 End: 03-02-2022 Comment on above: Take 5 mg by mouth o nce daily. sucralfate 1000 mg oral tabl et (3 sources) Aluminum Complex Start: 11-21-2024 Start: 11-21-2024 traMADol hydrochloride 50 mg oral tablet (20 [...] 09/12/2024 09/19/2024 Active Start: 03-14-2019 End: 09-12-2019 Start: 03-14-2019 End: 09-12-2019 take 1 tablet by mouth every six hours as needed Tramadol 50 mg tablet Discontinued 50 mg PO EVERY 6 HOURS as needed March 14, 2019 1:00am September 12, 2019 11:41am (6 sources) Start: 11-19-2024 Start: 03-14-2019 End: 09-12-2019 Completed/Discontinued Medications Medication Drug Class(es) Dates Sig (Normalized) Sig (Original) acetaminophen 325 mg / HYDROcodone bitartrate 5 mg oral tablet (20 sources) Opioid Agonist Start: 05-14-2018 End: 05-17-2018 Start: 05-14-2018 End: 05-17-2018 Hydrocodone-Acetaminophen 1 TABLET tablet Discontinued 1 {tbl} PO [...] 14, 2018 12:00am May 17, 2018 12:09am atorvastatin 40 mg oral tabl et (20 sources) HMG-CoA Reductase Inhibitor Start: 12-06-2018 End: 03-19-2020 120 actuat budesonide 0.16 mg/actuat / formoterol fumarate 0.0045 mg/actuat metered dose inhaler (20 sources) Corticosteroid, beta2-Adrenergic Agonist Start: 11-22-2018 End: 03-14-2019 Start: 11-22-2018 End: 03-14-2019 Budesonide-Formoterol (Symbi karely) 160-4.5 mcg/actuation HFA aerosol inhaler Discontinued 2 NMA INHALATION TWICE A DAY November 22, 2018 12:00am March 14, 2019 9:49am Start: 11-22-2018 End: 03-14-2019 take 1 puff(s) by inhalation twice daily Budesonide-Formoterol (Symbicort) 160-4.5 mcg/actuation HFA aerosol inhaler Discontinued 2 PUFF INHALATION TWICE A DAY November 22, 2018 12:00am March 14, 2019 9:49am Start: 11-14-2018 End: 11-17-2018 Start: 11-14-2018 End: 11-17-2018 Budesonide-Formoterol 1 INHA LER inhaler Discontinued 2 NMA INHALATION DAILY November 14, 2018 12:00am November 17, 2018 4:29pm Start: 11-14-2018 End: 11-17-2018 take 1 puff(s) by inhalation once daily Budesonide-Formoterol Discontinued 2 PUFF INHALATION DAILY November 14, 2018 12:00am November 17, 2018 4:29pm cephalexin 500 mg oral capsu le (13 sources) Cephalosporin Antibacterial Start: 05-17-2024 End: 06-13-2024 clindamycin 300 mg oral caps ule (20 sources) Lincosamide Antibacterial Start: 03-29-2022 End: 03-30-2022 Start: 03-29-2022 End: 03-30-2022 Start: 03-29-2022 End: 03-30-2022 take 300 mg by mouth three times daily, then take 450 mg by mouth three times daily Clindamycin Hcl Discontinued 150 MG PO THREE TIMES A DAY 27 08March 29, 2022 1:00am March 30, 2022 9:32am Take with 300mg for a total of 450mg PO TID collagenase 0.25 unt/mg topi samuel ointment (20 sources) Collagen-specific Enzyme Start: 04-12-2022 End: 02-28-2023 Start: 04-12-2022 End: 02-28-2023 Collagenase Clostridium Hist o. (Santyl) 250 unit/gram ointment Discontinued 1 NMA [...] capsule (20 sources) Start: 01-01-2022 End: 09-05-2024 Comment on above: Take 1 capsule by mo [facility] twice daily. enteric contrast (will be [...] contrast guidelines 1 each 07/26/2024 07/27/2024 Active fluorouracil (ADRUCIL) 4,500 mg in NaCl 0.9% [...] (20 sources) Corticosteroid Start: 03-02-2022 End: 10-24-2023 Start: 03-02-2022 Fluticasone Pr opionate Active 2 SPRAY INTRANASAL AT BEDTIME March 02, 2022 1:00am Fluticasone Propion-Salmeter ol (20 sources) Corticosteroid, beta2-Adrenergic Agonist Start: 03-04-2022 End: 03-30-2022 Start: 03-04-2022 End: 03-30-2022 Fluticasone Propion-Salmeter ol [...] oral tablet (20 sources) Loop Diuretic Start: 03-19-2022 End: 01-27-2023 Start: 03-19-2022 End: 01-27-2023 take 1 tablet by mouth once daily Furosemide 40 mg tablet Discontinued 40 mg PO DAILY 180 3 May 17, 2022 2:40pm January 27, 2023 11:43am 12 hr guaiFENesin 1200 mg ex tended release oral tablet (20 sources) Start: 03-04-2022 End: 03-30-2022 Start: 03-14-2019 End: 09-12-2019 ibuprofen 600 mg oral tablet (11 sources) Nonsteroidal Anti-inflammatory Drug Start: 06-27-2024 End: 08-30-2024 iv contrast (will be provided with radiology [...] administration guidelines link. levoFLOXacin 750 mg oral tab let (20 sources) Quinolone Antimicrobial Start: 03-04-2022 End: 03-29-2022 magnesium oxide 400 mg oral tablet (20 sources) Start: 03-14-2019 End: 09-12-2019 metOLazone 2.5 mg oral table t (20 sources) Thiazide-like Diuretic Start: 03-23-2022 End: 03-29-2022 metoprolol tartrate 25 mg or al tablet (20 sources) beta-Adrenergic Jami Start: 01-14-2023 End: 03-22-2024 Start: 01-14-2023 take 12.5 mg by mout h twice daily Metoprolol Tartrate Active 12.5 MG PO TWICE A DAY January 14, 2023 1:00am Start: 03-14-2019 End: 03-30-2022 Start: 03-14-2019 End: 03-30-2022 take 12.5 mg [...] 2019 1:00am September 12, 2019 11:41am Tiotropium-Olodaterol (20 sources) Anticholinergic, beta2-Adrenergic Agonist Start: 08-24-2022 End: 01-27-2023 Start: 08-24-2022 End: 01-27-2023 Tiotropium-Olodaterol (Stiol to [...] 24, 2022 12:00am omeprazole 40 mg delayed rel ease oral capsule (20 sources) Proton Pump Inhibitor Start: 11-17-2018 End: 09-05-2024 Start: 07-09-2018 End: 11-01-2018 Comment on above: Take 1 capsule by [facility] once daily. 2 ml ondansetron 2 mg/ml injection (20 sources) Serotonin-3 Receptor Antagonist Start: 10-15-2024 End: 10-15-2024 8 mg, INTRAVENOUS, ONCE, 1 dose, On Tue10/15/24 at 0930 Start: 09-24-2024 End: 09-24-2024 8 mg, INTRAVENOUS, ONCE, 1 d ose, On Tue09/24/24 at 1100 Start: 09-12-2024 take 1 tablet by [facility] every eight hours as needed for nausea [...] sources) Opioid Agonist Start: 01-18-2024 End: 02-02-2024 Start: 11-09-2023 End: 11-23-2023 Start: 01-03-2022 End: 09-05-2024 oxyCODONE IR (ROXICODONE) [...] 08/29/2024 09/03/2024 Active Start: 06-21-2024 End: 11-07-2024 Start: 05-17-2024 End: 06-13-2024 potassium chloride 20 meq extended release oral tablet (20 sources) Start: 03-23-2022 End: 03-29-2022 predniSONE 10 mg oral tablet (20 sources) Start: 03-04-2022 End: 03-29-2022 1000 ml sodium chloride 9 mg/ml injection (1 source) Start: 09-27-2024 End: 09-27-2024 1,000 mL, INTRAVENOUS, at 500 mL/hr, Administer over 2 Hours, ONCE, 1 dose, On Mayra 09/27/24 at 1030 spironolactone 25 mg oral tablet (20 sources) Aldosterone Antagonist Start: 03-19-2022 End: 05-17-2022 sulfamethoxazole 800 mg / trimethoprim 160 mg oral tablet (12 sources) Dihydrofolate Reductase Inhibitor Antibacterial, Sulfonamide Antimicrobial Start: 08-30-2024 End: 11-07-2024 Start: 08-29-2024 End: 11-07-2024 Sulfamethoxazole-Trimethopri m 800-160 mg tablet Discontinued 1 {tbl} PO TWICE A DAY August 30, 2024 12:00am November 07, 2024 6:56pm tamsulosin hydrochloride 0.4 mg oral capsule (13 sources) alpha-Adrenergic Jami Start: 05-17-2024 End: 06-13-2024 Tiotropium [place] (20 sources) Anticholinergic Start: 11-17-2018 End: 11-22-2018 Start: 11-17-2018 End: 11-22-2018 take 2.5 ug by inhalation once daily Tiotropium [place] (Spiriva Respimat) 2.5 mcg/actuation mist Discontinued 2 NMA INHALATION DAILY November 17, 2018 12:00am November 22, 2018 10:40am Start: 11-17-2018 End: 11-22-2018 take 1 puff(s) by inhalation once daily Tiotropium [place] (Spiriva Respimat) 2.5 mcg/actuation mist Discontinued 2 PUFF INHALATION DAILY November 16, 2018 11:00pm November 22, 2018 9:40am Start: 11-17-2018 End: 11-22-2018 take 1 puff(s) by inhalation once daily Tiotropium [place] (Spiriva Respimat) 2.5 mcg/actuation mist Discontinued 2 PUFF INHALATION DAILY November 17, 2018 12:00am November 22, 2018 10:40am Problems Active Problems Problem Classification Problem Date Documented Da te Episodic/Chronic Acute posthemorrhagic anemia (20 sources) Acute posthemorrhagic [...] without angina pectoris] Onset: 9 12-28-2021 Chronic Conditions associated with dizziness or vertigo (1 source) Dizziness and giddiness; Translations: [Dizziness and giddiness] Onset: 5 Episodic Coronary atherosclerosis and other heart disease (20 sources) Coronary atherosclerosis; Translations: [Atherosclerotic heart disease of [place] coronary artery with other forms of angina pectoris] Onset: 9 02-20-2019 Chronic Comment on above: CABG x 1: SVG-RCA 02/12/2019; Deficiency and other anemia (20 sources) Anemia; Translations: [Anemia, unspecified] Onset: 0 Resolved: 0 09-12-2019 Episodic Deficiency and other anemia (2 sources) Anemia, unspecified; Translations: [Anemia, unspecified type] Onset: 5 Episodic Diabetes mellitus with complications (1 source) [...] perforation] Onset: 2 12-28-2021 Chronic Gastrointestinal hemorrhage (20 sources) Gastrointestinal hemorrhage; Translations: [Gastrointestinal hemorrhage, unspecified] Onset: 5 11-07-2024 Episodic Genitourinary symptoms and ill-defined conditions (20 sources) Blood in urine; Translations: [Hematuria, unspecified] Onset: 3 09-07-2012 Episodic Heart valve disorders (20 sources) Aortic valve stenosis; Translations: [Nonrheumatic aortic (valve) stenosis] Onset: 0 02-20-2019 Chronic Comment on above: AVR #23 Perimount 02/12/19 #23 Perimount 02/12/19 20 Heart valve disorders (20 sources) Heart murmur; Translations: [Cardiac murmur, unspecified] 07-07-2021 Episodic Nausea and vomiting (3 sources) Nausea and vomiting; Translations: [Nausea with vomiting, unspecified] 12-01-2024 Episodic Occlusion or stenosis of precerebral arteries [...] respiratory systems] 07-07-2021 Episodic Other circulatory disease (3 sources) Low blood pressure; Translations: [Hypotension, unspecified] 12-01-2024 Episodic Other diseases of bladder and urethra [...] Episodic Other diseases of kidney and ureters (6 sources) Chronic renal insufficiency; Translations: [Disorder of kidney and ureter, unspecified] 03-12-2022 Episodic Other diseases of kidney and ureters (1 source) Other hydronephrosis; Translations: [Other hydronephrosis] Onset: Episodic Other gastrointestinal disorders (1 source) Other [...] right upper limb] Onset: 3 06-08-2012 Chronic Other nutritional; endocrine; and metabolic disorders (1 source) Hypocalcemia; Translations: [Hypocalcemia] Onset: 5 Chronic Pleurisy; pneumothorax; pulmonary collapse (20 sources) [...] Translations: [Edema] 03-23-2022 Episodic Residual codes; unclassified (20 sources) History of repair of aneurysm of abdominal aorta; Translations: [Other specified postprocedural states] 12-15-2022 Episodic Respiratory failure; insufficiency; arrest (adult) (20 sources) Acute respiratory failure; Translations: [Acute respiratory failure with hypoxia] 03-02-2022 Episodic Shock (19 sources) Hemorrhagic shock; Translations: [Other shock] Onset: [...] On-treatment Visit Onset: 5 Urinary tract infections (20 sources) Acute hemorrhagic cystitis; Translations: [Acute cystitis with hematuria] 05-17-2024 Episodic Past or Other Problems Problem Classification Problem Date Documented Date Episodic/Chronic Abdominal hernia (20 sources) Umbilical hernia; Translations: [Umbilical hernia without obstruction or gangrene] Onset: 06-08-2012 06-08-2012 Episodic Abdominal pain (20 sources) Abdominal pain; Translations: [Unspecified abdominal pain] Onset: 05-23-2024 01-05-2022 Episodic Acute and unspecified renal failure (8 sources) Acute renal failure syndrome; Translations: [Acute kidney failure, unspecified] Onset: 09-07-2024 09-06-2024 Episodic Administrative/social admission (20 sources) Discharge status; [...] behavior of bladder] Onset: 05-31-2024 Episodic Other circulatory disease (1 source) Personal history of other diseases of the circulatory system; Translations: [Personal history of other diseases of the circulatory system] Onset: 08-30-2024 Episodic Other diseases of kidney and ureters (1 source) Hydroureter; Translations: [Hydroureter on left] Onset: 09-07-2024 Episodic Other nervous system disorders (20 sources) Postoperative pain ; Translations: [Other acute postprocedural pain] Onset: 12-29-2021 01-01-2022 Episodic Other screening for suspected conditions (not mental disorders or infectious disease) (1 source) Encounter for screening for malignant neoplasm of respiratory organs; Translations: [Encounter for screening for malignant neoplasm of respiratory organs] Onset: 03-12-2024 Episodic Residual codes; unclassified (2 sources) Other specified postprocedural states; Translations: [Other postprocedural status] Onset: 08-30-2024 12-27-2022 Episodic Residual codes; unclassified (20 sources) Transition [...] Interpretation Reference Range Facility CBC W/Diff, Automatedon 12-08 Absolute Lymph 1.13 X10 3/uL Normal 0.83-4.51 [facility] Comment on above: Performed By: #### B , L100.0100 ####[facility] [address] [place], [address] Absolute Neut 4.2 X10 3/uL Normal 2.0-7.7 [facility] Comment on above: Performed By: #### Lynda , L100.0100 ####[facility] [address] [place], [address] Basophils/100 WBC (Bld) 0.5 % Normal 0-1 [facility] Comment on above: Performed By: #### Lynda GORE, L100.0100 ####[facility] [address] [place], [address] Eosinophils/100 WBC (Bld) 1.2 % Normal 0-5 [facility] Comment on above: Performed By: #### Lynda GORE, L100.0100 ####[facility] [address] [place], [address] Erythrocyte distribution width (RBC) [Ratio] 16.0 % High 11.6-14.6 [facility] Comment on above: Performed By: #### Lynda GORE, L100.0100 ####[facility] [address] [place], [address] Hematocrit (Bld) [Volume fraction] 23.5 % Low 40-54 [facility] Comment on above: Performed By: #### Lynda GORE, L100.0100 ####[facility] [address] [place], [address] Hemoglobin (Bld) [Mass/Vol] 8.2 g/dL Low 13.0-16.5 [facility] Comment on above: Performed By: #### Lynda GORE, L100.0100 ####[facility] [address] [place], [address] IG% 0.500 Normal 0.0-0.9 [facility] Comment on above: Result Comment: IG% - Immature Granulocytes (promyelocytes, myelocytes andmetamyelocytes) > 1% indicates that a LEFT SHIFT is Present. Performed By: #### Lynda GORE, L100.0100 ####[facility] [address] [place], [address] Lymphocytes/100 WBC (Bld) 18.7 % Low 19-41 [facility] Comment on above: Performed By: #### Lynda GORE, L100.0100 ####[facility] [address] [place], [address] MCH (RBC) [Entitic mass] 30.8 pg Normal 27.0-32.0 [facility] Comment on above: Performed By: #### Lynda GORE, L100.0100 ####[facility] [address] [place], [address] MCHC (RBC) [Mass/Vol] 34.9 g/dL Normal 32-36 [facility] Comment on above: Performed By: #### B BAO, L100.0100 ####[facility] [address] [place], [address] MCV (RBC) [Entitic vol] 88.3 fL Normal 80-94 [facility] Comment on above: Performed By: #### Lynda GORE, L100.0100 ####[facility] [address] [place], [address] Monocytes/100 WBC (Bld) 9.8 % Normal 0-10 [facility] Comment on above: Performed By: #### Lynda GORE, L100.0100 ####[facility] [address] [place], [address] Neutrophils/100 WBC (Bld) 69.3 % Normal 47-70 [facility] Comment on above: Performed By: #### Lynda GORE, L100.0100 ####[facility] [address] [place], [address] Nucleated RBC (Bld) [#/Vol] 0 10*3/uL Normal 0-5 [facility] Comment on above: Performed By: #### Lynda GORE, L100.0100 ####[facility] [address] [place], [address] Platelet mean volume (Bld) [Entitic vol] 9.3 fL Normal 6.2-12.0 [facility] Comment on above: Performed By: #### Lynda GORE, L100.0100 ####[facility] [address] [place], [address] Platelets (Bld) [#/Vol] 132 10*3/uL Low 150-450 [facility] Comment on above: Performed By: #### Lynda GORE, L100.0100 ####[facility] [address] [place], [address] RBC (Bld) [#/Vol] 2.66 10*6/uL Low 4.6-6.2 [facility] Comment on above: Performed By: #### Lynda RC, L100.0100 ####[facility] [address] [place], [address] RDW SD 51.2 fl High 35.1-43.9 [facility] Comment on above: Performed By: #### Lynda RC, L100.0100 ####[facility] [address] [place], [address] WBC (Bld) [#/Vol] 6.1 10*3/uL Normal 4.4-11.0 [facility] Comment on above: Performed By: #### Lynda GORE, L100.0100 ####[facility] [address] [place], [address] BRCon 12-18-2024 RC Normal [facility] Comment on above: Result Comment: [id number] AP RC TRANSFUSED 12/19/24 0034 Performed By: #### Lynda GORE, L100.0100 ####[facility] [address] [place], [address] Result Comment: [id number] AP RC TRANSFUSED 12/18/24 [id number] AP RC TRANSFUSED 12/18/24 1346 Performed By: #### Lynda GORE, BTS, L300.4310, L300.3900 ####[facility] [address] [place], [address] Basic Metabolic Profile (BMP )on 12-18-2024 BUN/CRE 41.5 RATIO High 10-20 [facility] Comment on above: Order Comment: Order Date: 12/18/24Order Info: [id number] - BMPOrder Info: [id number] - TSH Performed By: #### L 501.9520, L500.2500, L509.1000, L100.0500 ####[facility] [address] [place], [address] Calcium [Mass/Vol] 8.8 mg/dL Normal 7.6-11.0 [facility] Comment on above: Order Comment: Order Date: 12/18/24Order Info: [id number] - BMPOrder Info: [id number] - TSH Performed By: #### L 501.9520, L500.2500, L509.1000, L100.0500 ####[facility] [address] [place], [address] Chloride [Moles/Vol] 107 mmol/L Normal 98-108 [facility] Comment on above: Order Comment: Order Date: 12/18/24Order Info: [id number] - BMPOrder Info: 3 - TSH Performed By: #### L 501.9520, L500.2500, L509.1000, L100.0500 ####[facility] [address] [place], [address] CO2 [Moles/Vol] 20.9 mmol/L Low 21.0-32.0 [facility] Comment on above: Order Comment: Order Date: 12/18/24Order Info: [id number] - BMPOrder Info: 3 - TSH Performed By: #### L 501.9520, L500.2500, L509.1000, L100.0500 ####[facility] [address] [place], [address] Creatinine [Mass/Vol] 1.51 mg/dL High 0.70-1.20 [facility] Comment on above: Order Comment: Order Date: 12/18/24Order Info: [id number] - BMPOrder Info: 3 - TSH Performed By: #### L 501.9520, L500.2500, L509.1000, L100.0500 ####[facility] [address] [place], [address] GAP 10 Normal 5-15 [facility] Comment on above: Order Comment: Order Date: 12/18/24Order Info: 666-02 - BMPOrder Info: 3015-04 - TSH Performed By: #### L 501.9520, L500.2500, L509.1000, L100.0500 ####[facility] [address] [place], [address] GFR/1.73 sq M.predicted among non-blacks MDRD (S/P/Bld) [Vol rate/Area] 48 mL/min/{1.73_m2} Low >60 [facility] Comment on above: Order Comment: Order Date: 12/18/24Order Info: 666-02 - BMPOrder Info: 3015-04 - TSH Result Comment: mL/m in/1.73m2 CKD-EPI Creatinine Equation (2020) Performed By: #### L 501.9520, L500.2500, L509.1000, L100.0500 ####[facility] [address] [place], [address] Glucose [Mass/Vol] 226 mg/dL High 70-99 [facility] Comment on above: Order Comment: Order Date: 12/18/24Order Info: 666-02 - BMPOrder Info: 3015-04 - TSH Performed By: #### L 501.9520, L500.2500, L509.1000, L100.0500 ####[facility] [address] [place], [address] Potassium [Moles/Vol] 4.7 mmol/L Normal 3.3-5.1 [facility] Comment on above: Order Comment: Order Date: 12/18/24Order Info: 666-02 - BMPOrder Info: 3015-04 - TSH Performed By: #### L 501.9520, L500.2500, L509.1000, L100.0500 ####[facility] [address] [place], [address] Sodium [Moles/Vol] 138 mmol/L Normal 133-145 [facility] Comment on above: Order Comment: Order Date: 12/18/24Order Info: 666-02 - BMPOrder Info: 3016-3 - TSH Performed By: #### L 501.9520, L500.2500, L509.1000, L100.0500 ####[facility] [address] [place], [address] Urea nitrogen [Mass/Vol] 63 mg/dL High 4-19 [facility] Comment on above: Order Comment: Order Date: 12/18/24Order Info: 0667-1 - BMPOrder Info: 3016-3 - TSH Performed By: #### L 501.9520, L500.2500, L509.1000, L100.0500 ####[facility] [address] [place], [address] CBC-Complete Blood Cnt No Di ffon 12-18-2024 Erythrocyte distribution width (RBC) [Ratio] 15.9 % High 11.6-14.6 [facility] Comment on above: Order Comment: Order Date: 12/18/24Order Info: [id number] - CBC Performed By: #### L 501.9520, L500.2500, L509.1000, L100.0500 ####[facility] [address] [place], [address] Hematocrit (Bld) [Volume fraction] 21.0 % Low 40-54 [facility] Comment on above: Order Comment: Order Date: 12/18/24Order Info: [id number] - CBC Performed By: #### L 501.9520, L500.2500, L509.1000, L100.0500 ####[facility] [address] [place], [address] Hemoglobin (Bld) [Mass/Vol] 6.5 g/dL Low 13.0-16.5 [facility] Comment on above: Order Comment: Order Date: 12/18/24Order Info: [id number] - CBC Performed By: #### L 501.9520, L500.2500, L509.1000, L100.0500 ####[facility] [address] [place], [address] MCH (RBC) [Entitic mass] 29.1 pg Normal 27.0-32.0 [facility] Comment on above: Order Comment: Order Date: 12/18/24Order Info: [id number] - CBC Performed By: #### L 501.9520, L500.2500, L509.1000, L100.0500 ####[facility] [address] [place], [address] MCHC (RBC) [Mass/Vol] 31.0 g/dL Low 32-36 [facility] Comment on above: Order Comment: Order Date: 12/18/24Order Info: [id number] - CBC Performed By: #### L 501.9520, L500.2500, L509.1000, L100.0500 ####[facility] [address] [place], [address] MCV (RBC) [Entitic vol] 94.2 fL High 80-94 [facility] Comment on above: Order Comment: Order Date: 12/18/24Order Info: [id number] - CBC Performed By: #### L 501.9520, L500.2500, L509.1000, L100.0500 ####[facility] [address] [place], [address] Platelet mean volume (Bld) [Entitic vol] 9.6 fL Normal 6.2-12.0 [facility] Comment on above: Order Comment: Order Date: 12/18/24Order Info: [id number] - CBC Performed By: #### L 501.9520, L500.2500, L509.1000, L100.0500 ####[facility] [address] [place], [address] Platelets (Bld) [#/Vol] 193 10*3/uL Normal 150-450 [facility] Comment on above: Order Comment: Order Date: 12/18/24Order Info: [id number] - CBC Performed By: #### L 501.9520, L500.2500, L509.1000, L100.0500 ####[facility] [address] [place], [address] RBC (Bld) [#/Vol] 2.23 10*6/uL Low 4.6-6.2 [facility] Comment on above: Order Comment: Order Date: 12/18/24Order Info: [id number] - CBC Performed By: #### L 501.9520, L500.2500, L509.1000, L100.0500 ####[facility] [address] [place], [address] RDW SD 54.4 fl High 35.1-43.9 [facility] Comment on above: Order Comment: Order Date: 12/18/24Order Info: [id number] - CBC Performed By: #### L 501.9520, L500.2500, L509.1000, L100.0500 ####[facility] [address] [place], [address] WBC (Bld) [#/Vol] 6.8 10*3/uL Normal 4.4-11.0 [facility] Comment on above: Order Comment: Order Date: 12/18/24Order Info: [id number] - CBC Performed By: #### L 501.9520, L500.2500, L509.1000, L100.0500 ####[facility] [address] [place], [address] PTHINon 12-18-2024 PTH 40 pg/mL Normal 11-61 [facility] Comment on above: Order Comment: Order Date: 12/18/24Order Info: [id number] - PTHIN Performed By: #### L 501.9520, L500.2500, L509.1000, L100.0500 ####[facility] [address] [place], [address] Partial Thromboplast Timeon 12-18-2024 aPTT Coag (Bld) [Time] 23.9 s Low 24.1-36.2 [facility] Comment on above: Performed By: #### B RC, BTS, L300.4310, L300.3900 ####[facility] [address] [place], [address] Prothrombin Time w/INRon INR Coag (PPP) [Relative time] 1.0 {INR} Normal [facility] Comment on above: Performed By: #### B RC, BTS, L300.4310, L300.3900 ####[facility] [address] [place], [address] PT Coag (PPP) [Time] 13.8 s Normal 11.7-14.9 [facility] Comment on above: Performed By: #### B RC, BTS, L300.4310, L300.3900 ####[facility] [address] [place], [address] Stool Occult Blood iFOBon STOB Positive Normal [facility] Comment on above: Performed By: #### M 100.7900 ####[facility] [address] [place], [address] Thyroid Stim Hormone (TSH)on 12-18-2024 TSH 4.450 uIU/mL High 0.300-4.200 [facility] Comment on above: Order Comment: Order Date: 12/18/24Order Info: 0667-1 - BMPOrder Info: 3016-3 - TSH Performed By: #### L 501.9520, L500.2500, L509.1000, L100.0500 ####[facility] [address] [place], [address] Type AND Screenon 12-18-2024 ABO and Rh group Nom (Bld) Blood group A Rh(D) positive Normal [facility] Comment on above: Order Comment: CMV N EG? NNumber of units to transfuse: 2Is pt's Hgb is = to 7.0 mg/dl or Hct </= 21%? YReason for Ordering Blood: ChronicIs there symptomatic anemia? Ivana the blood/blood products to be transfused? YIs the patient having/had surgery? NWanival Bush Performed By: #### B RC, BTS, L300.4310, L300.3900 ####[facility] [address] [place], [address] Vitamin D,25 Hydroxyon 12-18 Vitamin D 25-OH 22.3 ng/mL Low 30-100 [facility] Comment on above: Order Comment: Order Date: 12/18/24Order Info: 0667-1 - BMPOrder Info: 3016-3 - TSH Result Comment: Tory min D StatusDeficiency: <20 ng/mL (50nmol/L)Insufficiency: 20-30 ng/mL (50-75 nmol/L)Sufficiency: 30-100 ng/mL (75-250 nmol/L)Toxicity: >100 ng/mL (>250 nmol/L) Performed By: #### L 506.1001 ####[facility] [address] [place], [address] HH, Hemoglobin AND Hematocri ton 12-17-2024 Hematocrit (Bld) [Volume fraction] 23.5 % Low 40-54 [facility] Comment on above: Order Comment: Order Date: 11/16/24Order Info: 60035-1 - HH Performed By: #### L 100.0600 ####[facility] [address] [place], [address] Hemoglobin (Bld) [Mass/Vol] 7.5 g/dL Low 13.0-16.5 [facility] Comment on above: Order Comment: Order Date: 11/16/24Order Info: [id number] - HH Performed By: #### L 100.0600 ####[facility] [address] [place], [address] CNPNon 12-13-2024 VICTORIANO [facility] CNOVon 12-12-2024 CNOV Office Visit (RADTWS ) ABELARDO IVORY ([id number]) 1950 M Date Time Provider Department 12/12/24 8:00 AM LUIGI BANKS RADDANIKA During your visit today, we recorded the following information about you: Temperature Pulse Respiration Blood pressure 97.8 degrees 87/minute 20/minute 110/69 Weight 63.5 kg Selma Trevino RN 12/17/2024 11:27 AM Signed Radiation Therapy - Nursing Note (Follow-up) PATIENT NAME: Abelardo Ivory PATIENT December 12, 2024 [facility] FACILITY/LOCATION: [place] Reason for visit: Follow up. Subjective Data Feels well without complaint Additional Data Do you want to see a Diesel Locomotive Firer? No Nursing Assessment Fatigue: He notes he has some fatigue but not worse than it was, if anything a bit better. Appetite: good Weight Gain/Loss: No Last 6 Encounter Wt Readings: Date: Wt: 12/10/2024 62.4 kg (137 lb 8 oz) 12/10/2024 62.5 kg (137 lb 12.8 oz) 11/23/2024 64.9 kg (143 lb 1.3 oz) 11/07/2024 69.9 kg (154 lb 1.6 oz) 10/15/2024 66.2 kg (146 lb) 10/12/2024 66.7 kg (147 lb) Bowel Function: normal bowel movements Bone Pain: none Focused Assessment PROSTATE - MALE PELVIS: Rectal bleeding: No. Rectal pain: No. Bladder function: no problems. Urinary frequency (D/N): 0/0. 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 s/p chemoradiation treatment finished on 10/22/24. INTERVAL HISTORY: He is here for a routine follow-up after he complete chemoradiation treatment. He had upper GI ulcer and GI bleeding requiring hospitalization. He is doing better now. He reports that his urination is almost back to his baseline. He has mildly increased urinary frequency. He denies any hematuria. ALLERGIES No Known Allergies MEDICATIONS: polyethylene glycol 3350 17 gram packet Take 1 packet by mouth once daily. Dissolve dose in 4 - 8 ounces of liquid and take as directed. albuterol HFA (PROVENTIL HFA, VENTOLIN HFA) 90 mcg/actuation inhaler Inhale 2 puffs as instructed every 4 hours as needed for wheezing/shortness of breath. sucralfate (CARAFATE) 1 gram tablet Take 1 g by mouth three times a day with meals. TAKE 1 TABLET BY MOUTH AT 7 IN THE MORNING, AGAIN AT 11 IN THE MORNING AND THEN AT [address]ING pantop[address] (PROTONIX) 40 mg tablet Take 1 tablet by mouth two times a day before meals at 6 am and 4 pm. ondansetron (ZOFRAN) 8 mg tablet Take 1 tablet by mouth every 8 hours as needed (For chemotherapy induced nausea and vomiting.). kjgadwwtxrf-zipgrlnpi-n ilanter (TRELEGY ELLIPTA) 200-62.5-25 mcg inhalation powder Inhale 1 puff as instructed once daily. acetaminophen (TYLENOL) 325 mg tablet Take 2 tablets by mouth every 4 hours. rosuvastatin (CRESTOR) 5 mg tablet Take 5 mg by mouth daily at bedtime. PHYSICAL EXAM: VS: BP 110/69 (BP Site: Right Arm, BP Position: Sitting) Pulse 87 Temp 36.6 ?C (97.8 ?F) Resp 20 Wt 63.5 kg (140 lb) SpO2 98% BMI 22.60 kg/m? KPS: 90 General Appearance: Alert and oriented. No acute distress. 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 s/p chemoradiation treatment finished on 10/22/24. He is scheduled to have restaging CT scans in January and then to see Dr. Dawkins. He will see his urologist, Dr. Gauthier, for consideration of surveillance cystoscopy in 2-3 months. Signed by: Luigi Banks MD cc: Padmini Carrasco ([facility]) [address] [place] [address] Allergies As of Date: 12/12/2024 (No Known Allergies) Date Reviewed: 12/12/2024 Reviewed by: Zachary Rockwell RN - Fully Assessed Primary Visit Diagnosis:Radiotherapy follow-up [Z09] Other Visit Diagnosis:Malignant neoplasm of trigone of urinary bladder (HCC) [C67.0] Prescriptions as of 12/17/2024 - polyethylene glycol 3350 17 gram packet Take 1 packet by mouth once daily. Dissolve dose in 4 - 8 ounces of liquid and take as directed. - albuterol HFA (PROVENTIL HFA, VENTOLIN HFA) 90 mcg/actuation inhaler Inhale 2 puffs as instructed every 4 hours as needed for wheezing/shortness of breath. - sucralfate (CARAFATE) 1 gram tablet Take 1 g by mouth three times a day with meals. TAKE 1 TABLET BY MOUTH AT 7 IN THE MORNING, AGAIN AT 11 IN THE MORNING AND THEN AT 4 IN THE EVENING - pantoprazole DR (PROTONIX) 40 mg tablet Take 1 tablet by mouth two times a day before meals at 6 am and 4 pm. - ondansetron (ZOFRAN) 8 mg tablet Take 1 tablet by mouth every 8 hours as needed (For chemotherapy induced nausea and vomiting.). - ixborvkcfim-fhvlgddfg-d ilanter ( (more content not included)... [facility] CBC W Auto Differential pane l (Bld)on 12-10-2024 Basophils (Bld) [#/Vol] 0.04 10*3/uL Normal <0.11 [facility] Comment on above: Order Comment: Speci men Type: BLOOD SPECIMENOrdering Facility: [facility] Address: [address] [place] [address] Performed By: #### 6 30-4, 43346-9 #### [facility] CLIA [id number] [address] [place] [address] [place] Basophils/100 WBC (Bld) 0.8 % [facility] Comment on above: Order Comment: Speci men Type: BLOOD SPECIMENOrdering Facility: [facility] Address: [address] [place] [address] Performed By: #### 6 30-4, 63369-7 #### [facility] CLIA [id number] [address] [place] [address] [place] Differential cell count method Nom (Bld) Auto [facility] Comment on above: Order Comment: Speci men Type: BLOOD SPECIMENOrdering Facility: [facility] Address: [address] [place] [address] Performed By: #### 6 30-4, 33890-1 #### [facility] CLIA [id number] [address] [place] [address] [place] Eosinophils (Bld) [#/Vol] 0.08 10*3/uL Normal <0.46 [facility] Comment on above: Order Comment: Speci men Type: BLOOD SPECIMENOrdering Facility: [facility] Address: [address] [place] [address] Performed By: #### 6 30-4, 78845-4 #### [facility] CLIA [id number] [address] [place] [address] [place] Eosinophils/100 WBC (Bld) 1.6 % [facility] Comment on above: Order Comment: Speci men Type: BLOOD SPECIMENOrdering Facility: [facility] Address: [address] [place] [address] Performed By: #### 6 30-4, 01454-5 #### [facility] CLIA [id number] [address] [place] [address] [place] Erythrocyte distribution width (RBC) [Ratio] 16.9 % High 11.5-15.0 [facility] Comment on above: Order Comment: Speci men Type: BLOOD SPECIMENOrdering Facility: [facility] Address: [address] [place] [address] Performed By: #### 6 30-4, 16752-4 #### [facility] CLIA [id number] [address] [place] [address] [place] Hematocrit (Bld) [Volume fraction] 30.5 % Low 39.0-51.0 [facility] Comment on above: Order Comment: Speci men Type: BLOOD SPECIMENOrdering Facility: [facility] Address: [address] [place] [address] Performed By: #### 6 30-4, 90831-8 #### [facility] CLIA [id number] [address] [place] [address] [place] Hemoglobin (Bld) [Mass/Vol] 9.6 g/dL Low 13.0-17.0 [facility] Comment on above: Order Comment: Speci men Type: BLOOD SPECIMENOrdering Facility: [facility] Address: [address] [place] [address] Performed By: #### 6 30-4, 24363-2 #### [facility] CLIA [id number] [address] [place] [address] [place] Immature granulocytes (Bld) [#/Vol] 10*3/uL Normal <0.10 [facility] Comment on above: Order Comment: Speci men Type: BLOOD SPECIMENOrdering Facility: [facility] Address: [address] [place] [address] Performed By: #### 6 30-4, 82817-7 #### [facility] CLIA [id number] [address] [place] [address] [place] Immature granulocytes/100 WBC (Bld) 0.2 % [facility] Comment on above: Order Comment: Speci men Type: BLOOD SPECIMENOrdering Facility: [facility] Address: [address] [place] [address] Performed By: #### 6 30-4, 76281-8 #### [facility] CLIA [id number] [address] [place] [address] [place] Lymphocytes (Bld) [#/Vol] 0.70 10*3/uL Low 1.00-4.00 [facility] Comment on above: Order Comment: Speci men Type: BLOOD SPECIMENOrdering Facility: [facility] Address: [address] [place] [address] Performed By: #### 6 30-4, 10008-4 #### [facility] CLIA [id number] [address] [place] [address] [place] Lymphocytes/100 WBC (Bld) 14.1 % [facility] Comment on above: Order Comment: Speci men Type: BLOOD SPECIMENOrdering Facility: [facility] Address: [address] [place] [address] Performed By: #### 6 30-4, 83087-6 #### [facility] CLIA [id number] [address] [place] [address] [place] MCH (RBC) [Entitic mass] 28.7 pg Normal 26.0-34.0 [facility] Comment on above: Order Comment: Speci men Type: BLOOD SPECIMENOrdering Facility: [facility] Address: [address] [place] [address] Performed By: #### 6 30-4, 65976-7 #### [facility] CLIA [id number] [address] [place] [address] [place] MCHC (RBC) [Mass/Vol] 31.5 g/dL Normal 30.5-36.0 [facility] Comment on above: Order Comment: Speci men Type: BLOOD SPECIMENOrdering Facility: [facility] Address: [address] [place] [address] Performed By: #### 6 30-4, 42159-8 #### [facility] CLIA [id number] [address] [place] [address] [place] MCV (RBC) [Entitic vol] 91.3 fL Normal 80.0-100.0 [facility] Comment on above: Order Comment: Speci men Type: BLOOD SPECIMENOrdering Facility: [facility] Address: [address] [place] [address] Performed By: #### 6 30-4, 71061-6 #### [facility] CLIA [id number] [address] [place] [address] [place] Monocytes (Bld) [#/Vol] 0.39 10*3/uL Normal <0.87 [facility] Comment on above: Order Comment: Speci men Type: BLOOD SPECIMENOrdering Facility: [facility] Address: [address] [place] [address] Performed By: #### 6 30-4, 37421-1 #### [facility] CLIA [id number] [address] [place] [address] [place] Monocytes/100 WBC (Bld) 7.8 % [facility] Comment on above: Order Comment: Speci men Type: BLOOD SPECIMENOrdering Facility: [facility] Address: [address] [place] [address] Performed By: #### 6 30-4, 76418-9 #### [facility] CLIA [id number] [address] [place] [address] [place] Neutrophils (Bld) [#/Vol] 3.75 10*3/uL Normal 1.45-7.50 [facility] Comment on above: Order Comment: Speci men Type: BLOOD SPECIMENOrdering Facility: [facility] Address: [address] [place] [address] Performed By: #### 6 30-4, 37755-0 #### [facility] CLIA [id number] [address] [place] [address] [place] Neutrophils/100 WBC (Bld) 75.5 % [facility] Comment on above: Order Comment: Speci men Type: BLOOD SPECIMENOrdering Facility: [facility] Address: [address] [place] [address] Performed By: #### 6 30-4, 65883-3 #### [facility] CLIA [id number] [address] [place] [address] [place] Nucleated RBC (Bld) [#/Vol] 10*3/uL Normal <0.01 [facility] Comment on above: Order Comment: Speci men Type: BLOOD SPECIMENOrdering Facility: [facility] Address: [address] [place] [address] Performed By: #### 6 30-4, 20156-8 #### [facility] CLIA [id number] [address] [place] [address] [place] Nucleated RBC/100 WBC (Bld) [Ratio] 0.0 /100 WBC [facility] Comment on above: Order Comment: Speci men Type: BLOOD SPECIMENOrdering Facility: [facility] Address: [address] [place] [address] Performed By: #### 6 30-4, 85555-8 #### [facility] CLIA [id number] [address] [place] [address] [place] Platelet mean volume (Bld) [Entitic vol] 8.4 fL Low 9.0-12.7 [facility] Comment on above: Order Comment: Speci men Type: BLOOD SPECIMENOrdering Facility: [facility] Address: [address] [place] [address] Performed By: #### 6 30-4, 38914-1 #### [facility] CLIA [id number] [address] [place] [address] [place] Platelets (Bld) [#/Vol] 140 10*3/uL Low 150-400 [facility] Comment on above: Order Comment: Speci men Type: BLOOD SPECIMENOrdering Facility: [facility] Address: [address] [place] [address] Performed By: #### 6 30-4, 08002-2 #### [facility] CLIA [id number] [address] [place] [address] [place] RBC (Bld) [#/Vol] 3.34 10*6/uL Low 4.20-6.00 [facility] Comment on above: Order Comment: Speci men Type: BLOOD SPECIMENOrdering Facility: [facility] Address: [address] [place] [address] Performed By: #### 6 30-4, 55248-2 #### [facility] CLIA [id number] [address] [place] [address] [place] WBC (Bld) [#/Vol] 4.97 10*3/uL Normal 3.70-11.00 [facility] Comment on above: Order Comment: Speci men Type: BLOOD SPECIMENOrdering Facility: [facility] Address: [address] [place] [address] Performed By: #### 6 30-4, 45025-1 #### [facility] CLIA [id number] [address] [place] [address] [place] CNOVSPon 12-10-2024 CNOVSP Visit (SP) Office (HEMAWS) ABELARDO IVORY ([id number]) 1950 M Date Time Provider Department 12/10/24 9:10 AM LAKEISHA DAWKINS During your visit today, we recorded the following information about you: Temperature Pulse Blood pressure Weight 98.1 degrees 94/minute 101/67 62.5 kg Lakeisha Dawkins DO 12/10/2024 9:34 AM Signed [facility] CLINICAL NOTE Department of Hematology and Medical Oncology PATIENT NAME: Abelardo Ivory [facility] NO.: [id number] ATTENDING PHYSICIAN: Lakeisha Dawkins DO DATE OF SERVICE: 12/10/2024 Oncologic problem(s): 1) Muscle invasive bladder cancer. HPI: The patient has a past medical history as outlined below. Developed gross hematuria and noticed debris in urine. Saw Dr. Winston. Had TURBT with "chemo flush." Path below. Referred to [facility] b/c patient declined cystectomy. Per Dr. Christianson's note dated 07/26/2024, "June 2024, began experiencing flank pain, and hematuria, [...] the past 1-1.5 ppd since age 15 years" Pathology from [facility] reviewed at [facility]: A. Urinary bladder, transurethral resection: [...] cough. Clear sputum. Sees Dr. Zuñiga at [facility]. Smokes about 1/2 ppd. No alcohol. Current therapy: 1) Concurrent radiation with Mitomycin-C and infusional 5-fluorouracil. Mitomycin held cycle #2. Presents for ongoing oncologic management. Recording using [employer] software for draft documentation of the visit was discussed with the patient/authorized passenger relations representative; all questions welcomed and answered. Patient/authorized passenger relations representative agreed to proceed INTERIM HISTORY: The patient is a 74-year-old male with muscle-invasive bladder cancer presenting for follow-up after completing chemotherapy and radiation therapy. The patient completed chemotherapy and radiation therapy for muscle-invasive bladder cancer. He was recently hospitalized at [place] for an upper GI bleed, during which an EGD on the showed fresh blood. One area was injected for chemical cauterization. He was discharged on Tuesday. Since discharge, his stools have returned to normal color. He denies abdominal pain, nausea, or urinary urgency. He reports occasional burning sensation with urination, but not every time, and denies hematuria. He has resumed eating and reports a good appetite. He notes a period of about 2 weeks during which he could only tolerate water and broth, resulting in some weight loss. PAST MEDICAL HISTORY Diagnosis Date Abdominal aortic [...] ARTERIAL GRAFT 02/12/2019 [facility] (more content not included)... [facility] CNPMalina 12-10-2024 CNPN [facility] CNPN Telephone ([employer]) ABELARDO IVORY ([id number]) 1950 M Date Time Provider Department 12/10/24 SUKHJINDER PHILLIPS During your visit today, we recorded the following information about you: Shawna Prakash, ANGELA 12/10/2024 9:06 AM Signed Pt had dressing change on Tuesday before being d/c'd from [facility]. Please schedule dressing change for Tuesday, 12/12 while pt is here for radiation. Thank you. Leonardo Downey 12/10/2024 9:13 AM Signed This has been scheduled as directed. Leonardo Downey Allergies As of Date: 12/10/2024 (No Known Allergies) Date Reviewed: 12/10/2024 Reviewed by: Paramjit Lugo MA - Fully Assessed Reason for Visit: Appointment [186] Prescriptions as of 12/10/2024 - polyethylene glycol 3350 17 gram packet Take 1 packet by mouth once daily. Dissolve dose in 4 - 8 ounces of liquid and take as directed. - albuterol HFA (PROVENTIL HFA, VENTOLIN HFA) 90 mcg/actuation inhaler Inhale 2 puffs as instructed every 4 hours as needed for wheezing/shortness of breath. - sucralfate (CARAFATE) 1 gram tablet Take 1 g by mouth three times a day with meals. TAKE 1 TABLET BY MOUTH AT 7 IN THE MORNING, AGAIN AT 11 IN THE MORNING AND THEN AT 4 IN THE EVENING - pantoprazole DR (PROTONIX) 40 mg tablet Take 1 tablet by mouth two times a day before meals at 6 am and 4 pm. - ondansetron (ZOFRAN) 8 mg tablet Take 1 tablet by mouth every 8 hours as needed (For chemotherapy induced nausea and vomiting.). - mtqthlpdzjq-elzeboxoo-u ilanter (TRELEGY ELLIPTA) 200-62.5-25 mcg inhalation powder Inhale 1 puff as instructed once daily. - acetaminophen (TYLENOL) 325 mg tablet Take 2 tablets by mouth every 4 hours. - rosuvastatin (CRESTOR) 5 mg tablet Take 5 mg by mouth daily at bedtime. Problem List As Of Date 12/10/2024 Noted Resolved CONTUSION OF FOREARM [S50.10XA] 08/09/2005 [...] pulmonary disease (HCC) [J4*11/10/2024 Dysuria [R30.0] 11/10/2024 GI bleed [K92.2] 11/23/2024 Severe protein-calorie malnutrition (HCC) [E43] 11/29/2024 Pulmonary embolus (HCC) [I26.99] 12/05/2024 Former smoker [Z87.891] 12/05/2024 Palliative care encounter [Z51.5] 12/05/2024 Goals of care, counseling/discussion [Z71.89] 12/06/2024 Encounter Status:Closed by LEONARDO DOWNEY on 12/10/24 [facility] Ale 12-07-2024 VICTORIANO Telephone (VAIBHAV) ABELARDO IVORY ([id number]) 1950 M Date Time Provider Department 12/07/24 LAKEISHA DAWKINS During your visit today, we recorded the following information about you: Wolf Crane RN 12/07/2024 11:40 AM Signed DISCHARGE CALL BACK Today's date: December 07, 2024 Notified of Pt discharge by: Compa Patient discharged on 12/06/24 from [facility] to Home Primary Cancer Diagnosis: Bladder Admitting Diagnosis: GI bleed EGD in 12/02 revealed oozing duodenal ulcer with hemorrhage which was treated with bipolar cautery and clips placed Discharge Summary/SBAR reviewed: Yes Handoff Discussed with Transitional Supercharge Repair Supervisor: N/A Psychosocial Risk Factors: None If patient discharged to SNF/Rehab Facility, phone call completed to reinforce discharge instructions and follow up: N/A Call Disposition: Admission unrelated to cancer diagnosis/treatment Patient has OV with Dr. Dawkins on 12/10/24. Wofl Crane RN Allergies As of Date: 12/07/2024 (No Known Allergies) Date Reviewed: 12/05/2024 Reviewed by: Cindy Plaza APRN.TIN STACKER - Fully Assessed Reason for Visit: Supercharge Repair Supervisor - Hospital Follow Up [6851] Prescriptions as of 12/07/2024 - polyethylene glycol 3350 17 gram packet Take 1 packet by mouth once daily. Dissolve dose in 4 - 8 ounces of liquid and take as directed. - albuterol HFA (PROVENTIL HFA, VENTOLIN HFA) 90 mcg/actuation inhaler Inhale 2 puffs as instructed every 4 hours as needed for wheezing/shortness of breath. - sucralfate (CARAFATE) 1 gram tablet Take 1 g by mouth three times a day with meals. TAKE 1 TABLET BY MOUTH AT 7 IN THE MORNING, AGAIN AT 11 IN THE MORNING AND THEN AT 4 IN THE EVENING - pantoprazole DR (PROTONIX) 40 mg tablet Take 1 tablet by mouth two times a day before meals at 6 am and 4 pm. - ondansetron (ZOFRAN) 8 mg tablet Take 1 tablet by mouth every 8 hours as needed (For chemotherapy induced nausea and vomiting.). - ltvusqdpxpd-gampqdkwk-w ilanter (TRELEGY ELLIPTA) 200-62.5-25 mcg inhalation powder Inhale 1 puff as instructed once daily. - acetaminophen (TYLENOL) 325 mg tablet Take 2 tablets by mouth every 4 hours. - rosuvastatin (CRESTOR) 5 mg tablet Take 5 mg by mouth daily at bedtime. Problem List As Of Date 12/07/2024 Noted Resolved CONTUSION OF FOREARM [S50.10XA] 08/09/2005 [...] pulmonary disease (HCC) [J4*11/10/2024 Dysuria [R30.0] 11/10/2024 GI bleed [K92.2] 11/23/2024 Severe protein-calorie malnutrition (HCC) [E43] 11/29/2024 Pulmonary embolus (HCC) [I26.99] 12/05/2024 Former smoker [Z87.891] 12/05/2024 Palliative care encounter [Z51.5] 12/05/2024 Goals of care, counseling/discussion [Z71.89] 12/06/2024 Encounter Status:Closed by WOLF CRANE on 12/07/24 [facility] ALLIED HEALTHon 12-06-2024 ALLIED HEALTH Normal [facility] Basic metabolic 2000 panelon 12-06-2024 Anion gap [Moles/Vol] 8 mmol/L Normal 8-15 [facility] Comment on above: Order Comment: Speci men Type: BLOOD SPECIMENOrdering Facility: [facility] Address: [address] [place] [address] Performed By: #### 2 4321-2 ####[facility] HEALTH[1] LABORATORYCLIA [id number] [place] [address] [place] Calcium [Mass/Vol] 7.6 mg/dL Low 8.5-10.2 [facility] Comment on above: Order Comment: Speci men Type: BLOOD SPECIMENOrdering Facility: [facility] Address: [address] [place] [address] Performed By: #### 2 4321-2 ####[facility][1] LABORATORYCLIA [id number] [place] [address] [place] Chloride [Moles/Vol] 102 mmol/L Normal 98-107 [facility] Comment on above: Order Comment: Speci men Type: BLOOD SPECIMENOrdering Facility: [facility] Address: [address] [place] [address] Performed By: #### 2 4321-2 ####[facility][1] LABORATORYCLIA [id number] [place] [address] [place] CO2 [Moles/Vol] 24 mmol/L Normal 22-30 [facility] Comment on above: Order Comment: Speci men Type: BLOOD SPECIMENOrdering Facility: [facility] Address: [address] [place] [address] Performed By: #### 2 4321-2 ####[facility][1] LABORATORYCLIA [id number] [place] [address] [place] Creatinine [Mass/Vol] 1.20 mg/dL Normal 0.73-1.22 [facility] Comment on above: Order Comment: Speci men Type: BLOOD SPECIMENOrdering Facility: [facility] Address: [address] [place] [address] Performed By: #### 2 4321-2 ####[facility] [id number] [address] [place] eGFRcr SerPlBld CKD-EPI 2020 63 mL/min/1.73m??? Normal >=60 [facility] Comment on above: Order Comment: Speci men Type: BLOOD SPECIMENOrdering Facility: [facility] Address: [address] [place] [address] Result Comment: Amy mated Glomerular Filtration Rate [...] actual GFR. Performed By: #### 2 4321-2 ####[facility][1] LABORATORYCLIA [id number] [place] [address] [place] Glucose [Mass/Vol] 133 mg/dL High 74-99 [facility] Comment on above: Order Comment: Michellei caryl Type: BLOOD SPECIMENOrdering Facility: [facility] Address: [address] [place] [address] Result Comment: The [place] Diabetes [employer] (ADA) provides guidance for cutoff values for fasting glucose and random glucose. The ADA defines fasting as no caloric intake for at least 8 hours. Fasting plasma glucose results between 100 to 125 mg/dL indicate increased risk for diabetes (prediabetes).Fasting plasma glucose results greater than or equal to 126 mg/dL meet the criteria for diagnosis of diabetes. In the absence of unequivocal hyperglycemia, results should be confirmed by repeat testing. In a patient with classic symptoms of hyperglycemia or hyperglycemic crisis, random plasma glucose results greater than or equal to 200 mg/dL meet the criteria for diagnosis of diabetes.Reference: Standards of Medical Care in Diabetes 2016, [place] [employer]. Diabetes Care. 2016.39(Suppl 1). Performed By: #### 2 4321-2 ####[facility][1] LABORATORYCLIA [id number] [place] [address] [place] Potassium [Moles/Vol] 4.4 mmol/L Normal 3.7-5.1 [facility] Comment on above: Order Comment: Speci men Type: BLOOD SPECIMENOrdering Facility: [facility] Address: [address] [place] [address] Performed By: #### 2 4321-2 ####[facility] [id number] [place] [address] [place] Sodium [Moles/Vol] 134 mmol/L Low 136-144 [facility] Comment on above: Order Comment: Michellei caryl Type: BLOOD SPECIMENOrdering Facility: [facility] Address: [address] [place] [address] Performed By: #### 2 4321-2 ####[facility][1] LABORATORYCLIA [id number] [place] [address] [place] Urea nitrogen [Mass/Vol] 29 mg/dL High 9-24 [facility] Comment on above: Order Comment: Speci men Type: BLOOD SPECIMENOrdering Facility: [facility] Address: [address] [place] [address] Performed By: #### 2 4321-2 ####[facility][1] LABORATORYCLIA [id number] [place] [address] [place] CASE MANAGEMon 12-06-2024 CASE MANAGEM [facility] CASE MANAGEM [facility] CNDSon 12-06-2024 CNDS Normal [facility] CNPNon 12-06-2024 CNPN Normal [facility] CONSULT PROGon 12-06-2024 CONSULT PROG Normal [facility] Hgb Bld-mCncon 12-06-2024 Hemoglobin (Bld) [Mass/Vol] 8.4 g/dL Low 13.0-17.0 [facility] Comment on above: Order Comment: Speci men Type: BLOOD SPECIMENOrdering Facility: [facility] Address: [address] [place] [address] Performed By: #### 7 18-7 ####[facility][1] LABORATORYCLIA [id number] [place] [address] [place] Hemoglobin (Bld) [Mass/Vol] 7.8 g/dL Low 13.0-17.0 [facility] Comment on above: Order Comment: Speci men Type: BLOOD SPECIMENOrdering Facility: [facility] Address: [address] [place] [address] Performed By: #### 7 18-7 ####[facility][1] LABORATORYCLIA [id number] [place] [address] [place] ALLIED HEALTHon 12-05-2024 ALLIED HEALTH Normal [facility] Basic metabolic 2000 panelon 12-05-2024 Anion gap [Moles/Vol] 6 mmol/L Low 8-15 [facility] Comment on above: Order Comment: Speci men Type: BLOOD SPECIMENOrdering Facility: [facility] Address: [address] [place] [address] Performed By: #### 2 4321-2, 63718-6 ####[facility][1] LABORATORYCLIA [id number] [place] [address] [place] Calcium [Mass/Vol] 7.7 mg/dL Low 8.5-10.2 [facility] Comment on above: Order Comment: Speci men Type: BLOOD SPECIMENOrdering Facility: [facility] Address: [address] [place] [address] Performed By: #### 2 4321-2, 59861-4 ####[facility][1] LABORATORYCLIA [id number] [place] [address] [place] Chloride [Moles/Vol] 103 mmol/L Normal 98-107 [facility] Comment on above: Order Comment: Speci men Type: BLOOD SPECIMENOrdering Facility: [facility] Address: [address] [place] [address] Performed By: #### 2 4321-2, 51947-8 ####[facility][1] LABORATORYCLIA [id number] [place] [id number] [place] CO2 [Moles/Vol] 23 mmol/L Normal 22-30 [facility] Comment on above: Order Comment: Speci men Type: BLOOD SPECIMENOrdering Facility: [facility] Address: [address] [place] [address] Performed By: #### 2 4321-2, 26778-4 ####[facility][1] LABORATORYCLIA [id number] [address] [place] Creatinine [Mass/Vol] 1.30 mg/dL High 0.73-1.22 [facility] Comment on above: Order Comment: Speci men Type: BLOOD SPECIMENOrdering Facility: [facility] Address: [address] [place] [address] Performed By: #### 2 4321-2, 52564-1 ####[facility][1] LABORATORYCLIA [id number] [place] [address] [place] eGFRcr SerPlBld CKD-EPI 2020 58 mL/min/1.73m??? Low >=60 [facility] Comment on above: Order Comment: Speci men Type: BLOOD SPECIMENOrdering Facility: [facility] Address: [address] [place] [address] Result Comment: Amy mated Glomerular Filtration Rate [...] reflect actual GFR. Performed By: #### 2 4321-2, 01984-9 ####[facility][1] LABORATORYCLIA [id number] [place] [address] [place] Glucose [Mass/Vol] 106 mg/dL High 74-99 [facility] Comment on above: Order Comment: Speci men Type: BLOOD SPECIMENOrdering Facility: [facility] Address: [address] [place] [address] Result Comment: The [place] Diabetes Association (ADA) provides guidance for cutoff values for fasting glucose and random glucose. The ADA defines fasting as no caloric intake for at least 8 hours. Fasting plasma glucose results between 100 to 125 mg/dL indicate increased risk for diabetes (prediabetes).Fasting plasma glucose results greater than or equal to 126 mg/dL meet the criteria for diagnosis of diabetes. In the absence of unequivocal hyperglycemia, results should be confirmed by repeat testing. In a patient with classic symptoms of hyperglycemia or hyperglycemic crisis, random plasma glucose results greater than or equal to 200 mg/dL meet the criteria for diagnosis of diabetes.Reference: Standards of Medical Care in Diabetes 2016, [place] [employer]. Diabetes Care. 2016.39(Suppl 1). Performed By: #### 2 4321-2, 09532-0 ####[facility][1] LABORATORYCLIA [id number] [place] [address] [place] Potassium [Moles/Vol] 3.8 mmol/L Normal 3.7-5.1 [facility] Comment on above: Order Comment: Michellei men Type: BLOOD SPECIMENOrdering Facility: [facility] Address: [address] [place] [address] Performed By: #### 2 4321-2, 51639-3 ####[facility][1] LABORATORYCLIA [id number] [place] [id number] [place] Sodium [Moles/Vol] 132 mmol/L Low 136-144 [facility] Comment on above: Order Comment: Michellei men Type: BLOOD SPECIMENOrdering Facility: [facility] Address: [address] [place], [place] [address] Performed By: #### 2 4321-2, 70115-5 ####[facility][1] LABORATORYCLIA [id number] [place] [address] [place] Urea nitrogen [Mass/Vol] 27 mg/dL High 9-24 [facility] Comment on above: Order Comment: Speci men Type: BLOOD SPECIMENOrdering Facility: [facility] Address: [address] [place] [address] Performed By: #### 2 4321-2, 75196-4 ####[facility][1] LABORATORYCLIA [id number] [address] [place] CASE MANAGEMon 12-05-2024 CASE MANAGEM Normal [facility] CONSULTon 12-05-2024 CONSULT Normal [facility] CONSULT PROGon 12-05-2024 CONSULT PROG Normal [facility] CTA CHEST (NON GATED) W IVCO N PEon 12-05-2024 CTA CHEST (NON GATED) W IVCON PE Normal [facility] HIGH SENSITIVITY TROPONIN To n 12-05-2024 Troponin T.cardiac High sensitivity method [Mass/Vol] 20 ng/L High <12 [facility] Comment on above: Order Comment: Speci men Type: BLOOD SPECIMENOrdering Facility: [facility] Address: [address] [place] [address] Performed By: #### H STNT ####[facility][1] LABORATORYCLIA [id number] [address] [place] Troponin T.cardiac High sensitivity method [Mass/Vol] 22 ng/L High <12 [facility] Comment on above: Order Comment: Speci men Type: BLOOD SPECIMENOrdering Facility: [facility] Address: [address] [place] [address] Performed By: #### H STNT ####[facility][1] LABORATORYCLIA [id number] [address] [place] Hgb Bld-mCncon 12-05-2024 Hemoglobin (Bld) [Mass/Vol] 8.2 g/dL Low 13.0-17.0 [facility] Comment on above: Order Comment: Speci men Type: BLOOD SPECIMENOrdering Facility: [facility] Address: [address] [place] [address] Performed By: #### 7 18-7 ####[facility][1] LABORATORYCLIA [id number] [address] [place] Hemoglobin (Bld) [Mass/Vol] 8.8 g/dL Low 13.0-17.0 [facility] Comment on above: Order Comment: Speci men Type: BLOOD SPECIMENOrdering Facility: [facility] Address: [address] [place] [address] Performed By: #### 7 18-7 ####[facility][1] LABORATORYCLIA [id number] [place] [address] [place] Hemoglobin (Bld) [Mass/Vol] 8.1 g/dL Low 13.0-17.0 [facility] Comment on above: Order Comment: Speci men Type: BLOOD SPECIMENOrdering Facility: [facility] Address: [address] [place] [address] Performed By: #### 7 18-7 ####[facility][1] LABORATORYCLIA [id number] [address] [place] NT-proBNP SerPl-mCncon 12-05 Natriuretic peptide.B prohormone N-Terminal [Mass/Vol] 800 pg/mL High <125 [facility] Comment on above: Order Comment: Speci men Type: BLOOD SPECIMENOrdering Facility: [facility] Address: [address] [place] [address] Performed By: #### 2 4321-2, 78789-5 ####[facility][1] LABORATORYCLIA [id number] [place] [address] [place] NUTRITIONon 12-05-2024 NUTRITION Normal [facility] THERAPY NTon 12-05-2024 THERAPY NT Normal [facility] US DVT LOWER BILon US DVT LOWER NEW Normal [facility] Basic metabolic 2000 panelon 12-04-2024 Anion gap [Moles/Vol] 9 mmol/L Normal 8-15 [facility] Comment on above: Order Comment: Speci men Type: BLOOD SPECIMENOrdering Facility: [facility] Address: [address] [place] [address] Performed By: #### 2 4321-2 ####[facility][1] LABORATORYCLIA [id number] [place] [address] [place] Calcium [Mass/Vol] 7.4 mg/dL Low 8.5-10.2 [facility] Comment on above: Order Comment: Speci men Type: BLOOD SPECIMENOrdering Facility: [facility] Address: [address] [place] [address] Performed By: #### 2 4321-2 ####[facility][1] LABORATORYCLIA [id number] [address] [place] Chloride [Moles/Vol] 104 mmol/L Normal 98-107 [facility] Comment on above: Order Comment: Speci men Type: BLOOD SPECIMENOrdering Facility: [facility] Address: [address] [place] [address] Performed By: #### 2 4321-2 ####[facility][1] LABORATORYCLIA [id number] [place] [address] [place] CO2 [Moles/Vol] 22 mmol/L Normal 22-30 [facility] Comment on above: Order Comment: Speci men Type: BLOOD SPECIMENOrdering Facility: [facility] Address: [address] [place] [address] Performed By: #### 2 4321-2 ####[facility][1] LABORATORYCLIA [id number] [place] [address] [place] Creatinine [Mass/Vol] 1.11 mg/dL Normal 0.73-1.22 [facility] Comment on above: Order Comment: Speci men Type: BLOOD SPECIMENOrdering Facility: [facility] Address: [address] [place] [address] Performed By: #### 2 4321-2 ####[facility][1] LABORATORYCLIA [id number] [place] [address] [place] eGFRcr SerPlBld CKD-EPI 2020 70 mL/min/1.73m??? Normal >=60 [facility] Comment on above: Order Comment: Raul hutson Type: BLOOD SPECIMENOrdering Facility: [facility] Address: [address] [place] [address] Result Comment: Amy mated Glomerular Filtration Rate [...] actual GFR. Performed By: #### 2 4321-2 ####[facility][1] LABORATORYCLIA [id number] [place] [address] [place] Glucose [Mass/Vol] 94 mg/dL Normal 74-99 [facility] Comment on above: Order Comment: Raul hutson Type: BLOOD SPECIMENOrdering Facility: [facility] Address: [address] [place] [address] Result Comment: The [place] [employer] (ADA) provides guidance for cutoff values for fasting glucose and random glucose. The ADA defines fasting as no caloric intake for at least 8 hours. Fasting plasma glucose results between 100 to 125 mg/dL indicate increased risk for diabetes (prediabetes).Fasting plasma glucose results greater than or equal to 126 mg/dL meet the criteria for diagnosis of diabetes. In the absence of unequivocal hyperglycemia, results should be confirmed by repeat testing. In a patient with classic symptoms of hyperglycemia or hyperglycemic crisis, random plasma glucose results greater than or equal to 200 mg/dL meet the criteria for diagnosis of diabetes.Reference: Standards of Medical Care in Diabetes 2016, [place] [employer]. Diabetes Care. 2016.39(Suppl 1). Performed By: #### 2 4321-2 ####[facility][1] LABORATORYCLIA [id number] [place] [address] [place] Potassium [Moles/Vol] 3.7 mmol/L Normal 3.7-5.1 [facility] Comment on above: Order Comment: Raul hutson Type: BLOOD SPECIMENOrdering Facility: [facility] Address: [address] [place] [address] Performed By: #### 2 4321-2 ####[facility][1] LABORATORYCLIA [id number] [place] [address] [place] Sodium [Moles/Vol] 135 mmol/L Low 136-144 [facility] Comment on above: Order Comment: Speci men Type: BLOOD SPECIMENOrdering Facility: [facility] Address: [address] [place] [address] Performed By: #### 2 4321-2 ####[facility][1] LABORATORYCLIA [id number] [place] [address] [place] Urea nitrogen [Mass/Vol] 26 mg/dL High 9-24 [facility] Comment on above: Order Comment: Speci men Type: BLOOD SPECIMENOrdering Facility: [facility] Address: [address] [place] [address] Performed By: #### 2 4321-2 ####[facility][1] LABORATORYCLIA [id number] [address] [place] CONSULT PROGon 12-04-2024 CONSULT PROG Normal [facility] CTA ABD/PELV WO/W IVCONon CTA ABD/PELV WO/W IVCON Invalid Interpretation Code [facility] Hgb Bld-mCncon 12-04-2024 Hemoglobin (Bld) [Mass/Vol] 8.7 g/dL Low 13.0-17.0 [facility] Comment on above: Order Comment: Speci men Type: BLOOD SPECIMENOrdering Facility: [facility] Address: [address] [place] [address] Performed By: #### 7 18-7 ####[facility][1] LABORATORYCLIA [id number] [place] [address] [place] Hemoglobin (Bld) [Mass/Vol] 8.3 g/dL Low 13.0-17.0 [facility] Comment on above: Order Comment: Speci men Type: BLOOD SPECIMENOrdering Facility: [facility] Address: [address] [place] [address] Performed By: #### 7 18-7 ####[facility][1] LABORATORYCLIA [id number] [place] [address] [place] Hemoglobin (Bld) [Mass/Vol] 6.7 g/dL Low 13.0-17.0 [facility] Comment on above: Order Comment: Speci men Type: BLOOD SPECIMENOrdering Facility: [facility] Address: [address] [place] [address] Performed By: #### 7 18-7 ####[facility][1] LABORATORYCLIA [id number] [place] [address] [place] Basic metabolic 2000 panelon 12-03-2024 Anion gap [Moles/Vol] 8 mmol/L Normal 8-15 [facility] Comment on above: Order Comment: Speci men Type: BLOOD SPECIMENOrdering Facility: [facility] Address: [address] [place] [address] Performed By: #### 2 4321-2 ####[facility][1] LABORATORYCLIA [id number] [place] [address] [place] Calcium [Mass/Vol] 7.2 mg/dL Low 8.5-10.2 [facility] Comment on above: Order Comment: Speci men Type: BLOOD SPECIMENOrdering Facility: [facility] Address: [address] [place] [address] Performed By: #### 2 4321-2 ####[facility][1] LABORATORYCLIA [id number] [place] [address] [place] Chloride [Moles/Vol] 105 mmol/L Normal 98-107 [facility] Comment on above: Order Comment: Speci men Type: BLOOD SPECIMENOrdering Facility: [facility] Address: [address] [place] [address] Performed By: #### 2 4321-2 ####[facility][1] LABORATORYCLIA [id number] [place] [address] [place] CO2 [Moles/Vol] 22 mmol/L Normal 22-30 [facility] Comment on above: Order Comment: Speci men Type: BLOOD SPECIMENOrdering Facility: [facility] Address: [address] [place] [address] Performed By: #### 2 4321-2 ####[facility][1] LABORATORYCLIA [id number] [place] [id number] [place] Creatinine [Mass/Vol] 1.28 mg/dL High 0.73-1.22 [facility] Comment on above: Order Comment: Speci caryl Type: BLOOD SPECIMENOrdering Facility: [facility] Address: [address] [place] [address] Performed By: #### 2 4321-2 ####[facility] [id number] [address] [place] eGFRcr SerPlBld CKD-EPI 2020 59 mL/min/1.73m??? Low >=60 [facility] Comment on above: Order Comment: Raul hutson Type: BLOOD SPECIMENOrdering Facility: [facility] Address: [address] [place] [address] Result Comment: Amy mated Glomerular Filtration Rate [...] actual GFR. Performed By: #### 2 4321-2 ####[facility][1] LABORATORYCLIA [id number] [place] [id number] [place] Glucose [Mass/Vol] 114 mg/dL High 74-99 [facility] Comment on above: Order Comment: Raul caryl Type: BLOOD SPECIMENOrdering Facility: [facility] Address: [address] [place] [address] Result Comment: The [place] [employer] (ADA) provides guidance for cutoff values for fasting glucose and random glucose. The ADA defines fasting as no caloric intake for at least 8 hours. Fasting plasma glucose results between 100 to 125 mg/dL indicate increased risk for diabetes (prediabetes).Fasting plasma glucose results greater than or equal to 126 mg/dL meet the criteria for diagnosis of diabetes. In the absence of unequivocal hyperglycemia, results should be confirmed by repeat testing. In a patient with classic symptoms of hyperglycemia or hyperglycemic crisis, random plasma glucose results greater than or equal to 200 mg/dL meet the criteria for diagnosis of diabetes.Reference: Standards of Medical Care in Diabetes 2016, [place] [employer]. Diabetes Care. 2016.39(Suppl 1). Performed By: #### 2 4321-2 ####[facility][1] LABORATORYCLIA [id number] [address] STATES OF [facility] Potassium [Moles/Vol] 4.4 mmol/L Normal 3.7-5.1 [facility] Comment on above: Order Comment: Speci men Type: BLOOD SPECIMENOrdering Facility: [facility] Address: [address] [place] [address] Performed By: #### 2 4321-2 ####[facility][1] LABORATORYCLIA [id number] [address] [place] [facility] Sodium [Moles/Vol] 135 mmol/L Low 136-144 [facility] Comment on above: Order Comment: Speci men Type: BLOOD SPECIMENOrdering Facility: [facility] Address: [address] [place] [address] Performed By: #### 2 4321-2 ####[facility][1] LABORATORYCLIA [id number] [address] [place] [facility] Urea nitrogen [Mass/Vol] 50 mg/dL High 9-24 [facility] Comment on above: Order Comment: Speci men Type: BLOOD SPECIMENOrdering Facility: [facility] Address: [address] [place] [address] Performed By: #### 2 4321-2 ####[facility][1] LABORATORYCLIA [id number] [place] [address] [place] CASE MANAGEMon 12-03-2024 CASE MANAGEM Normal [facility] CONSULT PROGon 12-03-2024 CONSULT PROG Normal [facility] Hgb Bld-mCncon 12-03-2024 Hemoglobin (Bld) [Mass/Vol] 7.2 g/dL Low 13.0-17.0 [facility] Comment on above: Order Comment: Speci men Type: BLOOD SPECIMENOrdering Facility: [facility] Address: [address] [place] [address] Performed By: #### 7 18-7 ####[facility][1] LABORATORYCLIA [id number] [place] [address] [place] Hemoglobin (Bld) [Mass/Vol] 7.7 g/dL Low 13.0-17.0 [facility] Comment on above: Order Comment: Speci men Type: BLOOD SPECIMENOrdering Facility: [facility] Address: [address] [place] [address] Performed By: #### 7 18-7 ####[facility][1] LABORATORYCLIA [id number] [address] [place] Hemoglobin (Bld) [Mass/Vol] 6.0 g/dL Low 13.0-17.0 [facility] Comment on above: Order Comment: Speci men Type: BLOOD SPECIMENOrdering Facility: [facility] Address: [address] [place] [address] Performed By: #### 7 18-7 ####[facility][1] LABORATORYCLIA [id number] [address] [place] ANES POSTPROC EVALon 025 ANES POSTPROC EVAL Normal [facility] ANES PRE-OPon 12-02-2024 ANES PRE-OP Normal [facility] Basic metabolic 2000 panelon 12-02-2024 Anion gap [Moles/Vol] 7 mmol/L Low 8-15 [facility] Comment on above: Order Comment: Speci men Type: BLOOD SPECIMENOrdering Facility: [facility] Address: [address] [place] [address] Performed By: #### 2 4321-2 ####[facility][1] LABORATORYCLIA [id number] [address] [place] Calcium [Mass/Vol] 7.3 mg/dL Low 8.5-10.2 [facility] Comment on above: Order Comment: Speci men Type: BLOOD SPECIMENOrdering Facility: [facility] Address: [address] [place] [address] Performed By: #### 2 4321-2 ####[facility][1] LABORATORYCLIA [id number] [place] [id number] [place] Chloride [Moles/Vol] 103 mmol/L Normal 98-107 [facility] Comment on above: Order Comment: Speci men Type: BLOOD SPECIMENOrdering Facility: [facility] Address: [address] [place] [address] Performed By: #### 2 4321-2 ####[facility][1] LABORATORYCLIA [id number] [place] [address] [place] CO2 [Moles/Vol] 24 mmol/L Normal 22-30 [facility] Comment on above: Order Comment: Speci men Type: BLOOD SPECIMENOrdering Facility: [facility] Address: [address] [place] [address] Performed By: #### 2 4321-2 ####[facility][1] LABORATORYCLIA [id number] [place] [address] [place] Creatinine [Mass/Vol] 1.34 mg/dL High 0.73-1.22 [facility] Comment on above: Order Comment: Speci men Type: BLOOD SPECIMENOrdering Facility: [facility] Address: [address] [place] [address] Performed By: #### 2 4321-2 ####[facility][1] LABORATORYCLIA [id number] [place] [address] [place] eGFRcr SerPlBld CKD-EPI 2020 56 mL/min/1.73m??? Low >=60 [facility] Comment on above: Order Comment: Speci men Type: BLOOD SPECIMENOrdering Facility: [facility] Address: [address] [place] [address] Result Comment: Amy mated Glomerular Filtration Rate [...] actual GFR. Performed By: #### 2 4321-2 ####[facility][1] LABORATORYCLIA [id number] [place] [address] [place] Glucose [Mass/Vol] 101 mg/dL High 74-99 [facility] Comment on above: Order Comment: Raul hutson Type: BLOOD SPECIMENOrdering Facility: [facility] Address: [address] [place] [address] Result Comment: The [place] Diabetes [employer] (ADA) provides guidance for cutoff values for fasting glucose and random glucose. The ADA defines fasting as no caloric intake for at least 8 hours. Fasting plasma glucose results between 100 to 125 mg/dL indicate increased risk for diabetes (prediabetes).Fasting plasma glucose results greater than or equal to 126 mg/dL meet the criteria for diagnosis of diabetes. In the absence of unequivocal hyperglycemia, results should be confirmed by repeat testing. In a patient with classic symptoms of hyperglycemia or hyperglycemic crisis, random plasma glucose results greater than or equal to 200 mg/dL meet the criteria for diagnosis of diabetes.Reference: Standards of Medical Care in Diabetes 2016, [place] [employer]. Diabetes Care. 2016.39(Suppl 1). Performed By: #### 2 4321-2 ####[facility][1] LABORATORYCLIA [id number] [place] [address] [place] Potassium [Moles/Vol] 4.7 mmol/L Normal 3.7-5.1 [facility] Comment on above: Order Comment: Raul hutson Type: BLOOD SPECIMENOrdering Facility: [facility] Address: [address] [place] [address] Performed By: #### 2 4321-2 ####[facility][1] LABORATORYCLIA [id number] [place] [address] [place] Sodium [Moles/Vol] 134 mmol/L Low 136-144 [facility] Comment on above: Order Comment: Raul hutson Type: BLOOD SPECIMENOrdering Facility: [facility] Address: [address] [place] [id number] Performed By: #### 2 4321-2 ####[facility][1] LABORATORYCLIA [id number] [address] STATES OF [facility] Urea nitrogen [Mass/Vol] 38 mg/dL High 9-24 [facility] Comment on above: Order Comment: Speci men Type: BLOOD SPECIMENOrdering Facility: [facility] Address: [address] [place] [address] Performed By: #### 2 4321-2 ####[facility][1] LABORATORYCLIA [id number] [place] [id number] [place] Hematocrit Auto (Bld) [Volum e fraction]on 12-02-2024 Hematocrit (Bld) [Volume fraction] 22.3 % Low 39.0-51.0 [facility] Comment on above: Order Comment: Speci men Type: BLOOD SPECIMENOrdering Facility: [facility] Address: [address] [place] [address] Performed By: #### 4 544-3, 718-7 ####[facility][1] LABORATORYCLIA [id number] [address] Hgb Bld-mCncon 12-02-2024 Hemoglobin (Bld) [Mass/Vol] 7.3 g/dL Low 13.0-17.0 [facility] Comment on above: Order Comment: Speci men Type: BLOOD SPECIMENOrdering Facility: [facility] Address: [address] [place] [address] Performed By: #### 4 544-3, 718-7 ####[facility][1] LABORATORYCLIA [id number] [address] STATES OF [facility] Hemoglobin (Bld) [Mass/Vol] 6.4 g/dL Low 13.0-17.0 [facility] Comment on above: Order Comment: Speci men Type: BLOOD SPECIMENOrdering Facility: [facility] Address: [address] [place] [address] Performed By: #### 7 18-7 ####[facility][1] LABORATORYCLIA [id number] [address] [place] Upper GI endoscopyon 025 Upper GI endoscopy Normal [facility] XR ABDOMEN 1V SUPINEon 12-02 XR ABDOMEN 1V SUPINE Normal [facility] Basic metabolic 2000 panelon 12-01-2024 Anion gap [Moles/Vol] 7 mmol/L Low 8-15 [facility] Comment on above: Order Comment: Speci men Type: BLOOD SPECIMENOrdering Facility: [facility] Address: [address] [place] [address] Performed By: #### 2 4321-2, 58328-3 ####[facility][1] LABORATORYCLIA [id number] [place] [address] [place] Calcium [Mass/Vol] 7.8 mg/dL Low 8.5-10.2 [facility] Comment on above: Order Comment: Speci men Type: BLOOD SPECIMENOrdering Facility: [facility] Address: [address] [place] [address] Performed By: #### 2 4321-2, 73964-3 ####[facility][1] LABORATORYCLIA [id number] [place] [address] [place] Chloride [Moles/Vol] 106 mmol/L Normal 98-107 [facility] Comment on above: Order Comment: Speci men Type: BLOOD SPECIMENOrdering Facility: [facility] Address: [address] [place] [address] Performed By: #### 2 4321-2, 07710-2 ####[facility]ORATORYCLIA [id number] [place] [address] [place] CO2 [Moles/Vol] 22 mmol/L Normal 22-30 [facility] Comment on above: Order Comment: Speci men Type: BLOOD SPECIMENOrdering Facility: [facility] Address: [address] [place] [address] Performed By: #### 2 4321-2, 56385-9 ####[facility] LABORATORYCLIA [id number] [place] [address] [place] Creatinine [Mass/Vol] 1.47 mg/dL High 0.73-1.22 [facility] Comment on above: Order Comment: Michelleju hutson Type: BLOOD SPECIMENOrdering Facility: [facility] Address: [address] [place] [address] Performed By: #### 2 4321-2, 21652-2 ####[facility][1] LABORATORYCLIA [id number] [place] [id number] [place] eGFRcr SerPlBld CKD-EPI 2020 50 mL/min/1.73m??? Low >=60 [facility] Comment on above: Order Comment: Raul caryl Type: BLOOD SPECIMENOrdering Facility: [facility] Address: [address] [place] [address] Result Comment: Amy mated Glomerular Filtration Rate [...] reflect actual GFR. Performed By: #### 2 4321-2, 96183-2 ####[facility][1] LABORATORYIA [id number] [place] [address] [place] Glucose [Mass/Vol] 111 mg/dL High 74-99 [facility] Comment on above: Order Comment: Raul hutson Type: BLOOD SPECIMENOrdering Facility: [facility] Address: [address] [place] [address] Result Comment: The [place] Diabetes Association (ADA) provides guidance for cutoff values for fasting glucose and random glucose. The ADA defines fasting as no caloric intake for at least 8 hours. Fasting plasma glucose results between 100 to 125 mg/dL indicate increased risk for diabetes (prediabetes).Fasting plasma glucose results greater than or equal to 126 mg/dL meet the criteria for diagnosis of diabetes. In the absence of unequivocal hyperglycemia, results should be confirmed by repeat testing. In a patient with classic symptoms of hyperglycemia or hyperglycemic crisis, random plasma glucose results greater than or equal to 200 mg/dL meet the criteria for diagnosis of diabetes.Reference: Standards of Medical Care in Diabetes 2016, [place] [employer]. Diabetes Care. 2016.39(Suppl 1). Performed By: #### 2 4321-2, 23294-4 ####[facility][1] LABORATORYCLIA [id number] [place] [address] [place] Potassium [Moles/Vol] 4.3 mmol/L Normal 3.7-5.1 [facility] Comment on above: Order Comment: Speci men Type: BLOOD SPECIMENOrdering Facility: [facility] Address: [address] [place] [address] Performed By: #### 2 4321-2, 96830-8 ####[facility][1] LABORATORYCLIA [id number] [address] [place] Sodium [Moles/Vol] 135 mmol/L Low 136-144 [facility] Comment on above: Order Comment: Speci men Type: BLOOD SPECIMENOrdering Facility: [facility] Address: [address] [place] [address] Performed By: #### 2 4321-2, 05022-9 ####[facility][1] LABORATORYCLIA [id number] [address] [place] [facility] Urea nitrogen [Mass/Vol] 34 mg/dL High 9-24 [facility] Comment on above: Order Comment: Speci men Type: BLOOD SPECIMENOrdering Facility: [facility] Address: [address] [place] [address] Performed By: #### 2 4321-2, 45065-8 ####[facility][1] LABORATORYCLIA [id number] [address] [place] Hgb Bld-mCncon 12-01-2024 Hemoglobin (Bld) [Mass/Vol] 6.8 g/dL Low 13.0-17.0 [facility] Comment on above: Order Comment: Speci men Type: BLOOD SPECIMENOrdering Facility: [facility] Address: [address] [place] [address] Performed By: #### 7 18-7 ####[facility][1] LABORATORYCLIA [id number] [address] [place] Iron and Iron binding capaci ty panelon 12-01-2024 Iron [Mass/Vol] 39 ug/dL Low 41-186 [facility] Comment on above: Order Comment: Speci men Type: BLOOD SPECIMENOrdering Facility: [facility] Address: [address] [place] [address] Performed By: #### 2 4321-2, 62335-2 ####[facility][1] LABORATORYCLIA [id number] [place] [address] [place] Iron binding capacity [Mass/Vol] 225 ug/dL Low 232-386 [facility] Comment on above: Order Comment: Speci men Type: BLOOD SPECIMENOrdering Facility: [facility] Address: [address] [place] [address] Performed By: #### 2 4321-2, 30808-3 ####[facility][1] LABORATORYCLIA [id number] [address] [place] Iron saturation [Mass fraction] 17.3 % Normal 15.0-57.0 [facility] Comment on above: Order Comment: Speci men Type: BLOOD SPECIMENOrdering Facility: [facility] Address: [address] [place] [address] Performed By: #### 2 4321-2, 39754-4 ####[facility][1] LABORATORYCLIA [id number] [place] [address] [place] TYPE + SCREENon 12-01-2024 ABO A Normal [facility] Comment on above: Order Comment: Speci men Type: BLOOD SPECIMENOrdering Facility: [facility] Address: [address] [place] [address] Performed By: #### T SCR ####[facility][1] BLOOD BANKCLIA [id number] [address] [place] Rh Nom (Bld) Positive [facility] Comment on above: Order Comment: Speci men Type: BLOOD SPECIMENOrdering Facility: [facility] Address: [address] [place] [address] Performed By: #### T SCR ####[facility][1] BLOOD BANKCLIA [id number] [address] OF [facility] TYPE AND SCREEN EXPIRATION 12/04/2024 23:59 Normal [facility] Comment on above: Order Comment: Speci men Type: BLOOD SPECIMENOrdering Facility: [facility] Address: [address] [place] [address] Performed By: #### T SCR ####[facility][1] BLOOD BANKCLIA [id number] [address] [place] Basic metabolic 2000 panelon 11-30-2024 Anion gap [Moles/Vol] 9 mmol/L Normal 8-15 [facility] Comment on above: Order Comment: Speci men Type: BLOOD SPECIMENOrdering Facility: [facility] Address: [address] [place] [address] Performed By: #### 2 4321-2 ####[facility][1] LABORATORYCLIA [id number] [place] [address] [place] Calcium [Mass/Vol] 7.8 mg/dL Low 8.5-10.2 [facility] Comment on above: Order Comment: Speci men Type: BLOOD SPECIMENOrdering Facility: [facility] Address: [address] [place] [address] Performed By: #### 2 4321-2 ####[facility][1] LABORATORYCLIA [id number] [place] [address] [place] Chloride [Moles/Vol] 106 mmol/L Normal 98-107 [facility] Comment on above: Order Comment: Speci men Type: BLOOD SPECIMENOrdering Facility: [facility] Address: [address] [place] [address] Performed By: #### 2 4321-2 ####[facility][1] LABORATORYCLIA [id number] [place] [address] [place] CO2 [Moles/Vol] 21 mmol/L Low 22-30 [facility] Comment on above: Order Comment: Speci men Type: BLOOD SPECIMENOrdering Facility: [facility] Address: [address] [place] [address] Performed By: #### 2 4321-2 ####[facility] [id number] [place] [address] [place] Creatinine [Mass/Vol] 1.47 mg/dL High 0.73-1.22 [facility] Comment on above: Order Comment: Raul hutson Type: BLOOD SPECIMENOrdering Facility: [facility] Address: [address] [place] [address] Performed By: #### 2 4321-2 ####[facility] [id number] [address] [place] eGFRcr SerPlBld CKD-EPI 2020 50 mL/min/1.73m??? Low >=60 [facility] Comment on above: Order Comment: Raul hutson Type: BLOOD SPECIMENOrdering Facility: [facility] Address: [address] [place] [address] Result Comment: Amy mated Glomerular Filtration Rate [...] actual GFR. Performed By: #### 2 4321-2 ####[facility] [id number] [address] [place] Glucose [Mass/Vol] 100 mg/dL High 74-99 [facility] Comment on above: Order Comment: Raul caryl Type: BLOOD SPECIMENOrdering Facility: [facility] Address: [address] [place] [address] Result Comment: The [place] Diabetes Association (ADA) provides guidance for cutoff values for fasting glucose and random glucose. The ADA defines fasting as no caloric intake for at least 8 hours. Fasting plasma glucose results between 100 to 125 mg/dL indicate increased risk for diabetes (prediabetes).Fasting plasma glucose results greater than or equal to 126 mg/dL meet the criteria for diagnosis of diabetes. In the absence of unequivocal hyperglycemia, results should be confirmed by repeat testing. In a patient with classic symptoms of hyperglycemia or hyperglycemic crisis, random plasma glucose results greater than or equal to 200 mg/dL meet the criteria for diagnosis of diabetes.Reference: Standards of Medical Care in Diabetes 2016, [place] [employer]. Diabetes Care. 2016.39(Suppl 1). Performed By: #### 2 4321-2 ####[facility][1] LABORATORYCLIA [id number] [address] STATES OF [facility] Potassium [Moles/Vol] 4.0 mmol/L Normal 3.7-5.1 [facility] Comment on above: Order Comment: Speci men Type: BLOOD SPECIMENOrdering Facility: [facility] Address: [address] [place] [address] Performed By: #### 2 4321-2 ####[facility][1] LABORATORYCLIA [id number] [address] Sodium [Moles/Vol] 136 mmol/L Normal 136-144 [facility] Comment on above: Order Comment: Speci men Type: BLOOD SPECIMENOrdering Facility: [facility] Address: [address] [place] [address] Performed By: #### 2 4321-2 ####[facility][1] LABORATORYCLIA [id number] [address] [place] [facility] Urea nitrogen [Mass/Vol] 36 mg/dL High 10-31 [facility] Comment on above: Order Comment: Speci men Type: BLOOD SPECIMENOrdering Facility: [facility] Address: [address] [place] [address] Performed By: #### 2 4321-2 ####[facility][1] LABORATORYCLIA [id number] [address] [place] CASE MANAGEMon 11-30-2024 CASE MANAGEM Normal [facility] CBC panel Auto (Bld)on 11-30 Erythrocyte distribution width (RBC) [Ratio] 21.0 % High 11.5-15.0 [facility] Comment on above: Order Comment: Speci men Type: BLOOD SPECIMENOrdering Facility: [facility] Address: [address] [place] [address] Performed By: #### 5 8410-2 ####[facility][1] LABORATORYCLIA [id number] [address] OF [facility] Hematocrit (Bld) [Volume fraction] 22.9 % Low 39.0-51.0 [facility] Comment on above: Order Comment: Speci men Type: BLOOD SPECIMENOrdering Facility: [facility] Address: [address] [place] [address] Performed By: #### 5 8410-2 ####[facility][1] LABORATORYCLIA [id number] [address] [facility] Hemoglobin (Bld) [Mass/Vol] 7.5 g/dL Low 13.0-17.0 [facility] Comment on above: Order Comment: Speci men Type: BLOOD SPECIMENOrdering Facility: [facility] Address: [address] [place] [address] Performed By: #### 5 8410-2 ####[facility][1] LABORATORYCLIA [id number] [address] [place] [facility] MCH (RBC) [Entitic mass] 28.8 pg Normal 26.0-34.0 [facility] Comment on above: Order Comment: Speci men Type: BLOOD SPECIMENOrdering Facility: [facility] Address: [address] [place] [address] Performed By: #### 5 8410-2 ####[facility][1] LABORATORYCLIA [id number] [address] [place] MCHC (RBC) [Mass/Vol] 32.8 g/dL Normal 30.5-36.0 [facility] Comment on above: Order Comment: Speci men Type: BLOOD SPECIMENOrdering Facility: [facility] Address: [address] [place] [address] Performed By: #### 5 8410-2 ####[facility][1] LABORATORYCLIA [id number] [address] STATES OF [facility] MCV (RBC) [Entitic vol] 88.1 fL Normal 80.0-100.0 [facility] Comment on above: Order Comment: Speci men Type: BLOOD SPECIMENOrdering Facility: [facility] Address: [address] [place] [address] Performed By: #### 5 8410-2 ####[facility][1] LABORATORYCLIA [id number] [address] Nucleated RBC (Bld) [#/Vol] 10*3/uL Normal <0.01 [facility] Comment on above: Order Comment: Speci men Type: BLOOD SPECIMENOrdering Facility: [facility] Address: [address] [place] [address] Performed By: #### 5 8410-2 ####[facility][1] LABORATORYCLIA [id number] [address] [place] Platelet mean volume (Bld) [Entitic vol] 9.4 fL Normal 9.0-12.7 [facility] Comment on above: Order Comment: Speci men Type: BLOOD SPECIMENOrdering Facility: [facility] Address: [address] [place] [address] Performed By: #### 5 8410-2 ####[facility][1] LABORATORYCLIA [id number] [address] Platelets (Bld) [#/Vol] 78 10*3/uL Low 150-400 [facility] Comment on above: Order Comment: Speci men Type: BLOOD SPECIMENOrdering Facility: [facility] Address: [address] [place] [address] Performed By: #### 5 8410-2 ####[facility][1] LABORATORYCLIA [id number] [address] [place] RBC (Bld) [#/Vol] 2.60 10*6/uL Low 4.20-6.00 [facility] Comment on above: Order Comment: Speci men Type: BLOOD SPECIMENOrdering Facility: [facility] Address: [address] [place] [address] Performed By: #### 5 8410-2 ####[facility][1] LABORATORYCLIA [id number] [place] [address] [place] WBC (Bld) [#/Vol] 5.81 10*3/uL Normal 3.70-11.00 [facility] Comment on above: Order Comment: Speci men Type: BLOOD SPECIMENOrdering Facility: [facility] Address: [address] [place] [address] Performed By: #### 5 8410-2 ####[facility][1] LABORATORYCLIA [id number] [address] [place] CONSULT PROGon 11-30-2024 CONSULT PROG Normal [facility] Hgb Bld-mCncon 11-30-2024 Hemoglobin (Bld) [Mass/Vol] 7.3 g/dL Low 13.0-17.0 [facility] Comment on above: Order Comment: Speci men Type: BLOOD SPECIMENOrdering Facility: [facility] Address: [address] [place] [address] Performed By: #### 7 18-7 ####[facility][1] LABORATORYCLIA [id number] [address] [place] THERAPY NTon 11-30-2024 THERAPY NT Normal [facility] Basic metabolic 2000 panelon 11-29-2024 Anion gap [Moles/Vol] 8 mmol/L Normal 8-15 [facility] Comment on above: Order Comment: Speci men Type: BLOOD SPECIMENOrdering Facility: [facility] Address: [address] [place] [address] Performed By: #### 2 4321-2 ####[facility][1] LABORATORYCLIA [id number] [place] [address] [place] Calcium [Mass/Vol] 7.7 mg/dL Low 8.5-10.2 [facility] Comment on above: Order Comment: Speci men Type: BLOOD SPECIMENOrdering Facility: [facility] Address: [address] [place] [address] Performed By: #### 2 4321-2 ####[facility][1] LABORATORYCLIA [id number] [address] [place] Chloride [Moles/Vol] 108 mmol/L High 98-107 [facility] Comment on above: Order Comment: Speci men Type: BLOOD SPECIMENOrdering Facility: [facility] Address: [address] [place] [address] Performed By: #### 2 4321-2 ####[facility][1] LABORATORYCLIA [id number] [place] [address] [place] CO2 [Moles/Vol] 19 mmol/L Low 22-30 [facility] Comment on above: Order Comment: Speci men Type: BLOOD SPECIMENOrdering Facility: [facility] Address: [address] [place] [address] Performed By: #### 2 4321-2 ####[facility] [id number] [address] [place] Creatinine [Mass/Vol] 1.71 mg/dL High 0.73-1.22 [facility] Comment on above: Order Comment: Speci men Type: BLOOD SPECIMENOrdering Facility: [facility] Address: [address] [place] [address] Performed By: #### 2 4321-2 ####[facility][1] LABORATORYCLIA [id number] [address] [place] eGFRcr SerPlBld CKD-EPI 2020 41 mL/min/1.73m??? Low >=60 [facility] Comment on above: Order Comment: Speci men Type: BLOOD SPECIMENOrdering Facility: [facility] [facility] Address: [address] [place] [address] Result Comment: Amy mated Glomerular Filtration Rate [...] actual GFR. Performed By: #### 2 4321-2 ####[facility][1] LABORATORYCLIA [id number] [address] [place] Glucose [Mass/Vol] 107 mg/dL High 74-99 [facility] Comment on above: Order Comment: Speci men Type: BLOOD SPECIMENOrdering Facility: [facility] Address: [address] [place] [address] Result Comment: The [place] [employer] (ADA) provides guidance for cutoff values for fasting glucose and random glucose. The ADA defines fasting as no caloric intake for at least 8 hours. Fasting plasma glucose results between 100 to 125 mg/dL indicate increased risk for diabetes (prediabetes).Fasting plasma glucose results greater than or equal to 126 mg/dL meet the criteria for diagnosis of diabetes. In the absence of unequivocal hyperglycemia, results should be confirmed by repeat testing. In a patient with classic symptoms of hyperglycemia or hyperglycemic crisis, random plasma glucose results greater than or equal to 200 mg/dL meet the criteria for diagnosis of diabetes.Reference: Standards of Medical Care in Diabetes 2016, [place] [employer]. Diabetes Care. 2016.39(Suppl 1). Performed By: #### 2 4321-2 ####[facility][1] LABORATORYCLIA [id number] [place] [address] [place] Potassium [Moles/Vol] 4.1 mmol/L Normal 3.7-5.1 [facility] Comment on above: Order Comment: Raul caryl Type: BLOOD SPECIMENOrdering Facility: [facility] Address: [address] [place] [address] Performed By: #### 2 4321-2 ####[facility][1] LABORATORYCLIA [id number] [place] [address] [place] Sodium [Moles/Vol] 135 mmol/L Low 136-144 [facility] Comment on above: Order Comment: Michellei men Type: BLOOD SPECIMENOrdering Facility: [facility] Address: [address] [id number] Performed By: #### 2 4321-2 ####[facility][1] LABORATORYCLIA [id number] [place] [address] [place] Urea nitrogen [Mass/Vol] 48 mg/dL High 9-24 [facility] Comment on above: Order Comment: Speci men Type: BLOOD SPECIMENOrdering Facility: [facility] Address: [address] [place] [address] Performed By: #### 2 4321-2 ####[facility][1] LABORATORYCLIA [id number] [address] [place] CASE MANAGEMon 11-29-2024 CASE MANAGEM Normal [facility] CBC panel Auto (Bld)on 11-29 Erythrocyte distribution width (RBC) [Ratio] 20.6 % High 11.5-15.0 [facility] Comment on above: Order Comment: Speci men Type: BLOOD SPECIMENOrdering Facility: [facility] Address: [address] [place] [address] Performed By: #### 5 8410-2 ####[facility][1] LABORATORYCLIA [id number] [address] [place] Hematocrit (Bld) [Volume fraction] 23.4 % Low 39.0-51.0 [facility] Comment on above: Order Comment: Speci men Type: BLOOD SPECIMENOrdering Facility: [facility] Address: [address] [place] [address] Performed By: #### 5 8410-2 ####[facility][1] LABORATORYCLIA [id number] [address] [place] Hemoglobin (Bld) [Mass/Vol] 7.7 g/dL Low 13.0-17.0 [facility] Comment on above: Order Comment: Speci men Type: BLOOD SPECIMENOrdering Facility: [facility] Address: [address] [place] [address] Performed By: #### 5 8410-2 ####[facility][1] LABORATORYCLIA [id number] [address] [place] MCH (RBC) [Entitic mass] 28.5 pg Normal 26.0-34.0 [facility] Comment on above: Order Comment: Speci men Type: BLOOD SPECIMENOrdering Facility: [facility] Address: [address] [place] [address] Performed By: #### 5 8410-2 ####[facility][1] LABORATORYCLIA [id number] [address] STATES OF [facility] MCHC (RBC) [Mass/Vol] 32.9 g/dL Normal 30.5-36.0 [facility] Comment on above: Order Comment: Speci men Type: BLOOD SPECIMENOrdering Facility: [facility] Address: [address] [place] [address] Performed By: #### 5 8410-2 ####[facility][1] LABORATORYCLIA [id number] [address] MCV (RBC) [Entitic vol] 86.7 fL Normal 80.0-100.0 [facility] Comment on above: Order Comment: Speci men Type: BLOOD SPECIMENOrdering Facility: [facility] Address: [address] [place] [address] Performed By: #### 5 8410-2 ####[facility][1] LABORATORYCLIA [id number] [address] Nucleated RBC (Bld) [#/Vol] 0.03 10*3/uL High <0.01 [facility] Comment on above: Order Comment: Speci men Type: BLOOD SPECIMENOrdering Facility: [facility] Address: [address] [place] [address] Performed By: #### 5 8410-2 ####[facility][1] LABORATORYCLIA [id number] [address] [place] Platelet mean volume (Bld) [Entitic vol] 9.4 fL Normal 9.0-12.7 [facility] Comment on above: Order Comment: Speci men Type: BLOOD SPECIMENOrdering Facility: [facility] Address: [address] [place] [address] Performed By: #### 5 8410-2 ####[facility][1] LABORATORYCLIA [id number] [address] Platelets (Bld) [#/Vol] 76 10*3/uL Low 150-400 [facility] Comment on above: Order Comment: Speci men Type: BLOOD SPECIMENOrdering Facility: [facility] Address: [address] [place] [address] Performed By: #### 5 8410-2 ####[facility][1] LABORATORYCLIA [id number] [address] [place] RBC (Bld) [#/Vol] 2.70 10*6/uL Low 4.20-6.00 [facility] Comment on above: Order Comment: Speci men Type: BLOOD SPECIMENOrdering Facility: [facility] Address: [address] [place] [address] Performed By: #### 5 8410-2 ####[facility][1] LABORATORYCLIA [id number] [address] [place] WBC (Bld) [#/Vol] 7.60 10*3/uL Normal 3.70-11.00 [facility] Comment on above: Order Comment: Speci men Type: BLOOD SPECIMENOrdering Facility: [facility] Address: [address] [place] [address] Performed By: #### 5 8410-2 ####[facility][1] LABORATORYCLIA [id number] [address] [place] CONSULT PROGon 11-29-2024 CONSULT PROG Normal [facility] Hgb Bld-mCncon 11-29-2024 Hemoglobin (Bld) [Mass/Vol] 8.3 g/dL Low 13.0-17.0 [facility] Comment on above: Order Comment: Speci men Type: BLOOD SPECIMENOrdering Facility: [facility] Address: [address] [place] [address] Performed By: #### 7 18-7 ####[facility][1] LABORATORYCLIA [id number] [place] [address] [place] Hemoglobin (Bld) [Mass/Vol] 7.6 g/dL Low 13.0-17.0 [facility] Comment on above: Order Comment: Speci men Type: BLOOD SPECIMENOrdering Facility: [facility] Address: [address] [place] [address] Performed By: #### 7 18-7 ####[facility] [id number] [place] [address] [place] NUTRITIONon 11-29-2024 NUTRITION Normal [facility] THERAPY NTon 11-29-2024 THERAPY NT Normal [facility] Bacteria Ur Culton Bacteria identified Cx Nom (U) CULTURE, URINE: No growth (<1,000 CFU/ml) Normal [facility] Comment on above: Performed By: #### 2 4356-8, 630-4 ####[facility][1] LABORATORYCLIA [id number] [place] [address] [place] Basic metabolic 2000 panelon 11-28-2024 Anion gap [Moles/Vol] 11 mmol/L Normal 8-15 [facility] Comment on above: Order Comment: Speci men Type: BLOOD SPECIMENOrdering Facility: [facility] Address: [address] [place] [address] Performed By: #### 2 4321-2 ####[facility][1] LABORATORYCLIA [id number] [place] [address] [place] Calcium [Mass/Vol] 7.4 mg/dL Low 8.5-10.2 [facility] Comment on above: Order Comment: Speci men Type: BLOOD SPECIMENOrdering Facility: [facility] Address: [address] [place] [address] Performed By: #### 2 4321-2 ####[facility][1] LABORATORYCLIA [id number] [place] [address] [place] Chloride [Moles/Vol] 106 mmol/L Normal 98-107 [facility] Comment on above: Order Comment: Speci men Type: BLOOD SPECIMENOrdering Facility: [facility] Address: [address] [place] [address] Performed By: #### 2 4321-2 ####[facility][1] LABORATORYCLIA [id number] [place] [address] [place] CO2 [Moles/Vol] 16 mmol/L Low 22-30 [facility] Comment on above: Order Comment: Speci men Type: BLOOD SPECIMENOrdering Facility: [facility] Address: [address] [place] [address] Performed By: #### 2 4321-2 ####[facility]CLIA [id number] [address] STATES OF [facility] Creatinine [Mass/Vol] 2.08 mg/dL High 0.73-1.22 [facility] Comment on above: Order Comment: Speci caryl Type: BLOOD SPECIMENOrdering Facility: [facility] Address: [address] [place] [address] Performed By: #### 2 4321-2 ####[facility]CLIA [id number] [address] eGFRcr SerPlBld CKD-EPI 2020 33 mL/min/1.73m??? Low >=60 [facility] Comment on above: Order Comment: Specju hutson Type: BLOOD SPECIMENOrdering Facility: [facility] Address: [address] [place] [address] Result Comment: Amy mated Glomerular Filtration Rate [...] actual GFR. Performed By: #### 2 4321-2 ####[facility][1] LABORATORYIA [id number] [address] [place] [facility] Glucose [Mass/Vol] 143 mg/dL High 74-99 [facility] Comment on above: Order Comment: Raul hutson Type: BLOOD SPECIMENOrdering Facility: [facility] Address: [address] [place] [address] Result Comment: The [place] Diabetes [employer] (ADA) provides guidance for cutoff values for fasting glucose and random glucose. The ADA defines fasting as no caloric intake for at least 8 hours. Fasting plasma glucose results between 100 to 125 mg/dL indicate increased risk for diabetes (prediabetes).Fasting plasma glucose results greater than or equal to 126 mg/dL meet the criteria for diagnosis of diabetes. In the absence of unequivocal hyperglycemia, results should be confirmed by repeat testing. In a patient with classic symptoms of hyperglycemia or hyperglycemic crisis, random plasma glucose results greater than or equal to 200 mg/dL meet the criteria for diagnosis of diabetes.Reference: Standards of Medical Care in Diabetes 2016, [place] [employer]. Diabetes Care. 2016.39(Suppl 1). Performed By: #### 2 4321-2 ####[facility][1] LABORATORYCLIA [id number] [address] STATES OF [facility] Potassium [Moles/Vol] 5.0 mmol/L Normal 3.7-5.1 [facility] Comment on above: Order Comment: Speci men Type: BLOOD SPECIMENOrdering Facility: [facility] Address: [address] [place] [address] Performed By: #### 2 4321-2 ####[facility][1] LABORATORYCLIA [id number] [address] Sodium [Moles/Vol] 133 mmol/L Low 136-144 [facility] Comment on above: Order Comment: Speci men Type: BLOOD SPECIMENOrdering Facility: [facility] Address: [address] [place] [address] Performed By: #### 2 4321-2 ####[facility][1] LABORATORYCLIA [id number] [address] Urea nitrogen [Mass/Vol] 68 mg/dL High 9-24 [facility] Comment on above: Order Comment: Speci men Type: BLOOD SPECIMENOrdering Facility: [facility] Address: [address] [place] [address] Performed By: #### 2 4321-2 ####[facility][1] LABORATORYCLIA [id number] [address] [id number] [place] CASE MANAGEMon 11-28-2024 CASE MANAGEM Normal [facility] CBC panel Auto (Bld)on 11-28 Erythrocyte distribution width (RBC) [Ratio] 20.8 % High 11.5-15.0 [facility] Comment on above: Order Comment: Speci men Type: BLOOD SPECIMENOrdering Facility: [facility] Address: [address] [place] [address] Performed By: #### 5 8410-2 ####[facility][1] LABORATORYCLIA [id number] [address] Hematocrit (Bld) [Volume fraction] 24.3 % Low 39.0-51.0 [facility] Comment on above: Order Comment: Speci men Type: BLOOD SPECIMENOrdering Facility: [facility] Address: [address] [place] [address] Performed By: #### 5 8410-2 ####[facility][1] LABORATORYCLIA [id number] [address] OF [facility] Hemoglobin (Bld) [Mass/Vol] 8.1 g/dL Low 13.0-17.0 [facility] Comment on above: Order Comment: Speci men Type: BLOOD SPECIMENOrdering Facility: [facility] Address: [address] [place] [address] Performed By: #### 5 8410-2 ####[facility][1] LABORATORYCLIA [id number] [address] MCH (RBC) [Entitic mass] 28.9 pg Normal 26.0-34.0 [facility] Comment on above: Order Comment: Speci men Type: BLOOD SPECIMENOrdering Facility: [facility] Address: [address] [place] [address] Performed By: #### 5 8410-2 ####[facility][1] LABORATORYCLIA [id number] [address] [place] MCHC (RBC) [Mass/Vol] 33.3 g/dL Normal 30.5-36.0 [facility] Comment on above: Order Comment: Speci men Type: BLOOD SPECIMENOrdering Facility: [facility] Address: [address] [place] [address] Performed By: #### 5 8410-2 ####[facility][1] LABORATORYCLIA [id number] [place] [address] [place] MCV (RBC) [Entitic vol] 86.8 fL Normal 80.0-100.0 [facility] Comment on above: Order Comment: Speci men Type: BLOOD SPECIMENOrdering Facility: [facility] Address: [address] [place] [address] Performed By: #### 5 8410-2 ####[facility][1] LABORATORYCLIA [id number] [address] [place] Nucleated RBC (Bld) [#/Vol] 0.07 10*3/uL High <0.01 [facility] Comment on above: Order Comment: Speci men Type: BLOOD SPECIMENOrdering Facility: [facility] Address: [address] [place] [address] Performed By: #### 5 8410-2 ####[facility][1] LABORATORYCLIA [id number] [address] [place] Platelet mean volume (Bld) [Entitic vol] 9.5 fL Normal 9.0-12.7 [facility] Comment on above: Order Comment: Speci men Type: BLOOD SPECIMENOrdering Facility: [facility] Address: [address] [place] [address] Performed By: #### 5 8410-2 ####[facility][1] LABORATORYCLIA [id number] [address] [place] Platelets (Bld) [#/Vol] 94 10*3/uL Low 150-400 [facility] Comment on above: Order Comment: Speci men Type: BLOOD SPECIMENOrdering Facility: [facility] Address: [address] [place] [address] Performed By: #### 5 8410-2 ####[facility][1] LABORATORYCLIA [id number] [address] [place] RBC (Bld) [#/Vol] 2.80 10*6/uL Low 4.20-6.00 [facility] Comment on above: Order Comment: Speci men Type: BLOOD SPECIMENOrdering Facility: [facility] Address: [address] [place] [address] Performed By: #### 5 8410-2 ####[facility][1] LABORATORYCLIA [id number] [place] [id number] [place] WBC (Bld) [#/Vol] 13.71 10*3/uL High 3.70-11.00 [facility] Comment on above: Order Comment: Speci men Type: BLOOD SPECIMENOrdering Facility: [facility] Address: [address] [place] [address] Performed By: #### 5 8410-2 ####[facility][1] LABORATORYCLIA [id number] [address] [place] CONSULT PROGon 11-28-2024 CONSULT PROG Normal [facility] CONSULT PROG Normal [facility] Calcium.ionized [Moles/Vol]o n 11-28-2024 Calcium.ionized (BldV) [Mass/Vol] 1.13 mmol/L Normal 1.08-1.30 [facility] Comment on above: Order Comment: Speci men Type: BLOOD SPECIMENOrdering Facility: [facility] Address: [address] [place] [address] Performed By: #### 1 995-0 ####[facility][1] LABORATORYCLIA [id number] [address] Calcium.ionized adjusted to pH 7.4 (Bld) [Moles/Vol] 1.06 mmol/L Low 1.08-1.30 [facility] Comment on above: Order Comment: Speci men Type: BLOOD SPECIMENOrdering Facility: [facility] Address: [address] [place] [address] Performed By: #### 1 995-0 ####[facility][1] LABORATORYCLIA [id number] [address] [place] Hgb Bld-mCncon 11-28-2024 Hemoglobin (Bld) [Mass/Vol] 6.8 g/dL Low 13.0-17.0 [facility] Comment on above: Order Comment: Speci men Type: BLOOD SPECIMENOrdering Facility: [facility] Address: [address] [place] [address] Performed By: #### 7 18-7 ####[facility][1] LABORATORYCLIA [id number] [address] [place] Hemoglobin (Bld) [Mass/Vol] 7.2 g/dL Low 13.0-17.0 [facility] Comment on above: Order Comment: Speci men Type: BLOOD SPECIMENOrdering Facility: [facility] Address: [address] [place] [address] Performed By: #### 7 18-7 ####[facility][1] LABORATORYCLIA [id number] [address] [place] Hemoglobin (Bld) [Mass/Vol] 7.4 g/dL Low 13.0-17.0 [facility] Comment on above: Order Comment: Speci men Type: BLOOD SPECIMENOrdering Facility: [facility] Address: [address] [place] [address] Performed By: #### 7 18-7 ####[facility][1] LABORATORYCLIA [id number] [address] [place] Urinalysis complete panel (U )on 11-28-2024 Bilirubin Ql (U) Negative Normal Negative [facility] Comment on above: Order Comment: Speci men Type: URINE SPECIMENOrdering Facility: [facility] Address: [address] [place] [address] Performed By: #### 2 4356-8, 630-4 ####[facility][1] LABORATORYCLIA [id number] [address] [place] Clarity (Unsp spec) Clear Normal Clear [facility] Comment on above: Order Comment: Speci men Type: URINE SPECIMENOrdering Facility: [facility] Address: [address] [place] [address] Performed By: #### 2 4356-8, 630-4 ####[facility][1] LABORATORYCLIA [id number] [address] Color (U) Yellow Normal yellow [facility] Comment on above: Order Comment: Speci men Type: URINE SPECIMENOrdering Facility: [facility] Address: [address] [place] [address] Performed By: #### 2 4356-8, 630-4 ####[facility][1] LABORATORYCLIA [id number] [address] [place] [facility] Epithelial cells LM.HPF (Urine sed) [#/Area] Few Abnormal None Seen [facility] Comment on above: Order Comment: Speci men Type: URINE SPECIMENOrdering Facility: [facility] Address: [address] [place] [address] Performed By: #### 2 4356-8, 630-4 ####[facility][1] LABORATORYCLIA [id number] [address] Glucose Test strip (U) [Mass/Vol] Negative Normal Trace, Negative [facility] Comment on above: Order Comment: Speci men Type: URINE SPECIMENOrdering Facility: [facility] Address: [address] [place] [address] Performed By: #### 2 4356-8, 630-4 ####[facility][1] LABORATORYCLIA [id number] [place] [address] [place] Hemoglobin Ql (U) Negative Normal Negative, Trace [facility] Comment on above: Order Comment: Speci men Type: URINE SPECIMENOrdering Facility: [facility] Address: [address] [place] [address] Performed By: #### 2 6-8, 630-4 ####[facility][1] LABORATORYCLIA [id number] [address] [place] Ketones Ql (U) Negative Normal Negative, Trace [facility] Comment on above: Order Comment: Speci men Type: URINE SPECIMENOrdering Facility: [facility] Address: [address] [place] [address] Performed By: #### 2 4356-8, 630-4 ####[facility][1] LABORATORYCLIA [id number] [address] [place] Leukocyte esterase Test strip Ql (U) Negative Normal Negative, 25 Stef/uL [facility] Comment on above: Order Comment: Speci men Type: URINE SPECIMENOrdering Facility: [facility] Address: [address] [place] [address] Performed By: #### 2 4356-8, 630-4 ####[facility][1] LABORATORYCLIA [id number] [address] [place] Nitrite Ql (U) Negative Normal Negative [facility] Comment on above: Order Comment: Speci men Type: URINE SPECIMENOrdering Facility: [facility] Address: [address] [place] [address] Performed By: #### 2 4356-8, 630-4 ####[facility] [id number] [address] [place] pH (U) 5.0 [pH] Normal 5.0-8.0 [facility] Comment on above: Order Comment: Speci men Type: URINE SPECIMENOrdering Facility: [facility] Address: [address] [place] [address] Performed By: #### 2 4356-8, 630-4 ####[facility]CL[facility] [id number] [address] [place] Protein (U) [Mass/Vol] Negative Normal Trace , Negative [facility] Comment on above: Order Comment: Speci men Type: URINE SPECIMENOrdering Facility: [facility] Address: [address] [place] [address] Performed By: #### 2 4356-8, 630-4 ####[facility][1] LABORATORYCLIA [id number] [address] [place] RBC LM.HPF (Urine sed) [#/Area] 3-5 /HPF Abnormal 0-3 /HPF [facility] Comment on above: Order Comment: Speci men Type: URINE SPECIMENOrdering Facility: [facility] Address: [address] [place] [address] Performed By: #### 2 4356-8, 630-4 ####[facility][1] LABORATORYCLIA [id number] [address] [place] Specific gravity (U) [Rel density] 1.030 Normal 1.005-1.030 [facility] Comment on above: Order Comment: Speci men Type: URINE SPECIMENOrdering Facility: [facility] Address: [address] [place] [address] Performed By: #### 2 4356-8, 630-4 ####[facility][1] LABORATORYCLIA [id number] [address] Urobilinogen Ql (U) Normal Normal Normal [facility] Comment on above: Order Comment: Speci men Type: URINE SPECIMENOrdering Facility: [facility] Address: [address] [place] [address] Performed By: #### 2 4356-8, 630-4 ####[facility][1] LABORATORYCLIA [id number] [address] [place] WBC LM.HPF (Urine sed) [#/Area] 11-25 /HPF Abnormal 0-5 /HPF [facility] Comment on above: Order Comment: Speci men Type: URINE SPECIMENOrdering Facility: [facility] Address: [address] [place] [address] Performed By: #### 2 4356-8, 630-4 ####[facility][1] LABORATORYCLIA [id number] [place] [address] [place] Basic metabolic 2000 panelon 11-27-2024 Anion gap [Moles/Vol] 7 mmol/L Low 8-15 [facility] Comment on above: Order Comment: Speci men Type: BLOOD SPECIMENOrdering Facility: [facility] Address: [address] [place] [address] Performed By: #### 2 4321-2 ####[facility][1] LABORATORYCLIA [id number] [address] [place] Calcium [Mass/Vol] 6.9 mg/dL Low 8.5-10.2 [facility] Comment on above: Order Comment: Speci men Type: BLOOD SPECIMENOrdering Facility: [facility] Address: [address] [place] [address] Performed By: #### 2 4321-2 ####[facility][1] LABORATORYCLIA [id number] [place] [id number] [place] Chloride [Moles/Vol] 112 mmol/L High 98-107 [facility] Comment on above: Order Comment: Speci men Type: BLOOD SPECIMENOrdering Facility: [facility] Address: [address] [place] [address] Performed By: #### 2 4321-2 ####[facility][1] LABORATORYCLIA [id number] [place] [id number] [place] CO2 [Moles/Vol] 17 mmol/L Low 22-30 [facility] Comment on above: Order Comment: Speci men Type: BLOOD SPECIMENOrdering Facility: [facility] Address: [address] [place] [address] Performed By: #### 2 4321-2 ####[facility][1] LABORATORYCLIA [id number] [place] [address] [place] Creatinine [Mass/Vol] 1.68 mg/dL High 0.73-1.22 [facility] Comment on above: Order Comment: Speci men Type: BLOOD SPECIMENOrdering Facility: [facility] Address: [address] [place] [address] Performed By: #### 2 4321-2 ####[facility][1] LABORATORYCLIA [id number] [place] [address] [place] eGFRcr SerPlBld CKD-EPI 2020 42 mL/min/1.73m??? Low >=60 [facility] Comment on above: Order Comment: Speci men Type: BLOOD SPECIMENOrdering Facility: [facility] Address: [address] [place] [address] Result Comment: Amy mated Glomerular Filtration Rate [...] actual GFR. Performed By: #### 2 4321-2 ####[facility][1] LABORATORYCLIA [id number] [place] [address] [place] Glucose [Mass/Vol] 166 mg/dL High 74-99 [facility] Comment on above: Order Comment: Raul hutson Type: BLOOD SPECIMENOrdering Facility: [facility] Address: [address] [place] [address] Result Comment: The [place] [employer] (ADA) provides guidance for cutoff values for fasting glucose and random glucose. The ADA defines fasting as no caloric intake for at least 8 hours. Fasting plasma glucose results between 100 to 125 mg/dL indicate increased risk for diabetes (prediabetes).Fasting plasma glucose results greater than or equal to 126 mg/dL meet the criteria for diagnosis of diabetes. In the absence of unequivocal hyperglycemia, results should be confirmed by repeat testing. In a patient with classic symptoms of hyperglycemia or hyperglycemic crisis, random plasma glucose results greater than or equal to 200 mg/dL meet the criteria for diagnosis of diabetes.Reference: Standards of Medical Care in Diabetes 2016, [place] [employer]. Diabetes Care. 2016.39(Suppl 1). Performed By: #### 2 4321-2 ####[facility][1] LABORATORYCLIA [id number] [place] [address] [place] Potassium [Moles/Vol] 5.1 mmol/L Normal 3.7-5.1 [facility] Comment on above: Order Comment: Raul hutson Type: BLOOD SPECIMENOrdering Facility: [facility] Address: [address] [place] [address] Performed By: #### 2 4321-2 ####[facility][1] LABORATORYCLIA [id number] [place] [address] [place] Sodium [Moles/Vol] 136 mmol/L Normal 136-144 [facility] Comment on above: Order Comment: Raul hutson Type: BLOOD SPECIMENOrdering Facility: [facility] Address: [address] [place] [id number] Performed By: #### 2 4321-2 ####[facility]ORATORYCLIA [id number] [place] [id number] [place] Urea nitrogen [Mass/Vol] 58 mg/dL High 9-24 [facility] Comment on above: Order Comment: Speci men Type: BLOOD SPECIMENOrdering Facility: [facility] Address: [address] [place] [address] Performed By: #### 2 4321-2 ####[facility][1] LABORATORYCLIA [id number] [place] [id number] [place] CBC panel Auto (Bld)on 11-27 Erythrocyte distribution width (RBC) [Ratio] 20.1 % High 11.5-15.0 [facility] Comment on above: Order Comment: Speci men Type: BLOOD SPECIMENOrdering Facility: [facility] Address: [address] [place] [address] Performed By: #### 5 8410-2 ####[facility][1] LABORATORYCLIA [id number] [address] STATES OF [facility] Hematocrit (Bld) [Volume fraction] 30.3 % Low 39.0-51.0 [facility] Comment on above: Order Comment: Speci men Type: BLOOD SPECIMENOrdering Facility: [facility] Address: [address] [place] [address] Performed By: #### 5 8410-2 ####[facility][1] LABORATORYCLIA [id number] [place] [id number] [place] Hemoglobin (Bld) [Mass/Vol] 10.0 g/dL Low 13.0-17.0 [facility] Comment on above: Order Comment: Speci men Type: BLOOD SPECIMENOrdering Facility: [facility] Address: [address] [place] [address] Performed By: #### 5 8410-2 ####[facility][1] LABORATORYCLIA [id number] [address] [place] MCH (RBC) [Entitic mass] 29.0 pg Normal 26.0-34.0 [facility] Comment on above: Order Comment: Speci men Type: BLOOD SPECIMENOrdering Facility: [facility] Address: [address] [place] [address] Performed By: #### 5 8410-2 ####[facility][1] LABORATORYCLIA [id number] [address] STATES [facility] MCHC (RBC) [Mass/Vol] 33.0 g/dL Normal 30.5-36.0 [facility] Comment on above: Order Comment: Speci men Type: BLOOD SPECIMENOrdering Facility: [facility] Address: [address] [place] [address] Performed By: #### 5 8410-2 ####[facility][1] LABORATORYCLIA [id number] [address] MCV (RBC) [Entitic vol] 87.8 fL Normal 80.0-100.0 [facility] Comment on above: Order Comment: Speci men Type: BLOOD SPECIMENOrdering Facility: [facility] Address: [address] [place] [address] Performed By: #### 5 8410-2 ####[facility][1] LABORATORYCLIA [id number] [address] Nucleated RBC (Bld) [#/Vol] 0.04 10*3/uL High <0.01 [facility] Comment on above: Order Comment: Speci men Type: BLOOD SPECIMENOrdering Facility: [facility] Address: [address] [place] [address] Performed By: #### 5 8410-2 ####[facility][1] LABORATORYCLIA [id number] [address] Platelet mean volume (Bld) [Entitic vol] 9.8 fL Normal 9.0-12.7 [facility] Comment on above: Order Comment: Speci men Type: BLOOD SPECIMENOrdering Facility: [facility] Address: [address] [place] [address] Performed By: #### 5 8410-2 ####[facility][1] LABORATORYCLIA [id number] [address] [place] Platelets (Bld) [#/Vol] 98 10*3/uL Low 150-400 [facility] Comment on above: Order Comment: Speci men Type: BLOOD SPECIMENOrdering Facility: [facility] Address: [address] [place] [address] Result Comment: No c lot detected. Performed By: #### 5 8410-2 ####[facility][1] LABORATORYCLIA [id number] [place] [address] [place] RBC (Bld) [#/Vol] 3.45 10*6/uL Low 4.20-6.00 [facility] Comment on above: Order Comment: Speci men Type: BLOOD SPECIMENOrdering Facility: [facility] Address: [address] [place] [address] Performed By: #### 5 8410-2 ####[facility][1] LABORATORYCLIA [id number] [address] [place] WBC (Bld) [#/Vol] 10.10 10*3/uL Normal 3.70-11.00 [facility] Comment on above: Order Comment: Speci men Type: BLOOD SPECIMENOrdering Facility: [facility] Address: [address] [place] [address] Performed By: #### 5 8410-2 ####[facility][1] LABORATORYCLIA [id number] [address] OF [facility] CONSULT PROGon 11-27-2024 CONSULT PROG Normal [facility] CONSULT PROG Normal [facility] CONSULT PROG Normal [facility] CT ABD/PEL W IVCONon 025 CT ABD/PEL W IVCON Normal [facility] Hgb Bld-mCncon 11-27-2024 Hemoglobin (Bld) [Mass/Vol] 6.8 g/dL Low 13.0-17.0 [facility] Comment on above: Order Comment: Speci men Type: BLOOD SPECIMENOrdering Facility: [facility] Address: [address] [place] [address] Performed By: #### 7 18-7 ####[facility][1] LABORATORYCLIA [id number] [address] [place] Hemoglobin (Bld) [Mass/Vol] 8.0 g/dL Low 13.0-17.0 [facility] Comment on above: Order Comment: Speci men Type: BLOOD SPECIMENOrdering Facility: [facility] Address: [address] [place] [address] Performed By: #### 7 18-7 ####[facility][1] LABORATORYCLIA [id number] [place] [address] [place] Hemoglobin (Bld) [Mass/Vol] 8.3 g/dL Low 13.0-17.0 [facility] Comment on above: Order Comment: Speci men Type: BLOOD SPECIMENOrdering Facility: [facility] Address: [address] [place] [address] Performed By: #### 7 18-7 ####[facility][1] LABORATORYCLIA [id number] [address] [place] Hemoglobin (Bld) [Mass/Vol] 8.5 g/dL Low 13.0-17.0 [facility] Comment on above: Order Comment: Speci men Type: BLOOD SPECIMENOrdering Facility: [facility] Address: [address] [place] [address] Performed By: #### 7 18-7 ####[facility][1] LABORATORYCLIA [id number] [address] STATES OF [facility] TYPE + SCREENon 11-27-2024 ABO A Normal [facility] Comment on above: Order Comment: Speci men Type: BLOOD SPECIMENOrdering Facility: [facility] Address: [address] [place] [address] Performed By: #### T SCR ####[facility][1] BLOOD BANKCLIA [id number] [address] [place] Rh Nom (Bld) Positive Normal [facility] Comment on above: Order Comment: Speci men Type: BLOOD SPECIMENOrdering Facility: [facility] Address: [address] [place] [address] Performed By: #### T SCR ####[facility][1] BLOOD BANKCLIA [id number] [place] [address] [place] TYPE AND SCREEN EXPIRATION 11/30/2024 23:59 Normal [facility] Comment on above: Order Comment: Speci men Type: BLOOD SPECIMENOrdering Facility: [facility] Address: [address] [place] [address] Performed By: #### T SCR ####[facility][1] BLOOD BANKCLIA [id number] [address] [place] ALLIED HEALTHon 11-26-2024 ALLIED HEALTH Normal [facility] BRIEF OP NOTon 11-26-2024 BRIEF OP NOT Normal [facility] Basic metabolic 2000 panelon 11-26-2024 Anion gap [Moles/Vol] 10 mmol/L Normal 8-15 [facility] Comment on above: Order Comment: Speci men Type: BLOOD SPECIMENOrdering Facility: [facility] Address: [address] [place] [address] Performed By: #### 2 4321-2 ####[facility][1] LABORATORYCLIA [id number] [place] [address] [place] [facility] Calcium [Mass/Vol] 8.0 mg/dL Low 8.5-10.2 [facility] Comment on above: Order Comment: Speci men Type: BLOOD SPECIMENOrdering Facility: [facility] Address: [address] [place] [address] Performed By: #### 2 4321-2 ####[facility][1] LABORATORYCLIA [id number] [place] [address] [place] Chloride [Moles/Vol] 105 mmol/L Normal 98-107 [facility] Comment on above: Order Comment: Speci men Type: BLOOD SPECIMENOrdering Facility: [facility] Address: [address] [place] [address] Performed By: #### 2 4321-2 ####[facility][1] LABORATORYCLIA [id number] [place] [address] [place] CO2 [Moles/Vol] 22 mmol/L Normal 22-30 [facility] Comment on above: Order Comment: Speci men Type: BLOOD SPECIMENOrdering Facility: [facility] Address: [address] [place] [address] Performed By: #### 2 4321-2 ####[facility][1] LABORATORYCLIA [id number] [place] [id number] [place] Creatinine [Mass/Vol] 1.50 mg/dL High 0.73-1.22 [facility] Comment on above: Order Comment: Speci men Type: BLOOD SPECIMENOrdering Facility: [facility] Address: [address] [place] [address] Performed By: #### 2 4321-2 ####[facility]CLIA [id number] [place] [address] [place] eGFRcr SerPlBld CKD-EPI 2020 49 mL/min/1.73m??? Low >=60 [facility] Comment on above: Order Comment: Speci men Type: BLOOD SPECIMENOrdering Facility: [facility] Address: [address] [place] [address] Result Comment: Amy mated Glomerular Filtration Rate [...] actual GFR. Performed By: #### 2 4321-2 ####[facility][1] LABORATORYCLIA [id number] [place] [address] [place] Glucose [Mass/Vol] 108 mg/dL High 74-99 [facility] Comment on above: Order Comment: Raul hutson Type: BLOOD SPECIMENOrdering Facility: [facility] Address: [address] [place] [address] Result Comment: The [place] [employer] (ADA) provides guidance for cutoff values for fasting glucose and random glucose. The ADA defines fasting as no caloric intake for at least 8 hours. Fasting plasma glucose results between 100 to 125 mg/dL indicate increased risk for diabetes (prediabetes).Fasting plasma glucose results greater than or equal to 126 mg/dL meet the criteria for diagnosis of diabetes. In the absence of unequivocal hyperglycemia, results should be confirmed by repeat testing. In a patient with classic symptoms of hyperglycemia or hyperglycemic crisis, random plasma glucose results greater than or equal to 200 mg/dL meet the criteria for diagnosis of diabetes.Reference: Standards of Medical Care in Diabetes 2016, [place] [employer]. Diabetes Care. 2016.39(Suppl 1). Performed By: #### 2 4321-2 ####[facility][1] LABORATORYCLIA [id number] [address] STATES OF [facility] Potassium [Moles/Vol] 3.7 mmol/L Normal 3.7-5.1 [facility] Comment on above: Order Comment: Ralu hutson Type: BLOOD SPECIMENOrdering Facility: [facility] Address: [address] [place] [address] Performed By: #### 2 4321-2 ####[facility] INDIANACLIA [id number] [address] STATES OF [facility] Sodium [Moles/Vol] 137 mmol/L Normal 136-144 [facility] Comment on above: Order Comment: Raul hutson Type: BLOOD SPECIMENOrdering Facility: [facility] Address: [address] [place] [address] Performed By: #### 2 4321-2 ####[facility][1] LABORATORYCLIA [id number] [address] [place] Urea nitrogen [Mass/Vol] 34 mg/dL High 9-24 [facility] Comment on above: Order Comment: Raul hutson Type: BLOOD SPECIMENOrdering Facility: [facility] Address: [address] [place] [address] Performed By: #### 2 4321-2 ####[facility][1] LABORATORYCLIA [id number] [address] [place] CASE MGT INIT ASSESon 2024 CASE MGT INIT ASSES Normal [facility] CBC panel Auto (Bld)on 10-20 -2025 Erythrocyte distribution width (RBC) [Ratio] 17.1 % High 11.5-15.0 [facility] Comment on above: Order Comment: Speci men Type: BLOOD SPECIMENOrdering Facility: [facility] Address: [address] [place] [address] Performed By: #### 5 8410-2 ####[facility][1] LABORATORYCLIA [id number] [address] Hematocrit (Bld) [Volume fraction] 23.9 % Low 39.0-51.0 [facility] Comment on above: Order Comment: Speci men Type: BLOOD SPECIMENOrdering Facility: [facility] Address: [address] [place] [address] Performed By: #### 5 8410-2 ####[facility][1] LABORATORYCLIA [id number] [address] STATES OF [facility] Hemoglobin (Bld) [Mass/Vol] 7.9 g/dL Low 13.0-17.0 [facility] Comment on above: Order Comment: Speci men Type: BLOOD SPECIMENOrdering Facility: [facility] Address: [address] [place] [address] Performed By: #### 5 8410-2 ####[facility][1] LABORATORYCLIA [id number] [address] MCH (RBC) [Entitic mass] 31.1 pg Normal 26.0-34.0 [facility] Comment on above: Order Comment: Speci men Type: BLOOD SPECIMENOrdering Facility: [facility] Address: [address] [place] [address] Performed By: #### 5 8410-2 ####[facility][1] LABORATORYCLIA [id number] [address] [place] MCHC (RBC) [Mass/Vol] 33.1 g/dL Normal 30.5-36.0 [facility] Comment on above: Order Comment: Speci men Type: BLOOD SPECIMENOrdering Facility: [facility] Address: [address] [place] [address] Performed By: #### 5 8410-2 ####[facility][1] LABORATORYCLIA [id number] [address] [place] MCV (RBC) [Entitic vol] 94.1 fL Normal 80.0-100.0 [facility] Comment on above: Order Comment: Speci men Type: BLOOD SPECIMENOrdering Facility: [facility] Address: [address] [place] [address] Performed By: #### 5 8410-2 ####[facility][1] LABORATORYCLIA [id number] [address] OF [place] Nucleated RBC (Bld) [#/Vol] 0.02 10*3/uL High <0.01 [facility] Comment on above: Order Comment: Speci men Type: BLOOD SPECIMENOrdering Facility: [facility] Address: [address] [place] [address] Performed By: #### 5 8410-2 ####[facility][1] LABORATORYCLIA [id number] [address] OF [facility] Platelet mean volume (Bld) [Entitic vol] 9.3 fL Normal 9.0-12.7 [facility] Comment on above: Order Comment: Speci men Type: BLOOD SPECIMENOrdering Facility: [facility] Address: [address] [place] [address] Performed By: #### 5 8410-2 ####[facility][1] LABORATORYCLIA [id number] [address] OF [place] Platelets (Bld) [#/Vol] 115 10*3/uL Low 150-400 [facility] Comment on above: Order Comment: Speci men Type: BLOOD SPECIMENOrdering Facility: [facility] Address: [address] [place] [address] Performed By: #### 5 8410-2 ####[facility][1] LABORATORYCLIA [id number] [address] [place] RBC (Bld) [#/Vol] 2.54 10*6/uL Low 4.20-6.00 [facility] Comment on above: Order Comment: Speci men Type: BLOOD SPECIMENOrdering Facility: [facility] Address: [address] [place] [address] Performed By: #### 5 8410-2 ####[facility][1] LABORATORYCLIA [id number] [address] [place] WBC (Bld) [#/Vol] 5.00 10*3/uL Normal 3.70-11.00 [facility] Comment on above: Order Comment: Speci men Type: BLOOD SPECIMENOrdering Facility: [facility] Address: [address] [place] [address] Performed By: #### 5 8410-2 ####[facility][1] LABORATORYCLIA [id number] [address] [place] CONSULTon 11-26-2024 CONSULT Normal [facility] CONSULT PROGon 11-26-2024 CONSULT PROG Normal [facility] CTA ABD/PELV WO/W IVCONon CTA ABD/PELV WO/W IVCON Normal [facility] ECG COMPLETEon 11-26-2024 ECG COMPLETE Normal [facility] HISTORY PHYSICALon HISTORY PHYSICAL Normal [facility] HISTORY PHYSICAL Normal [facility] Hgb Bld-mCncon 11-26-2024 Hemoglobin (Bld) [Mass/Vol] 9.4 g/dL Low 13.0-17.0 [facility] Comment on above: Order Comment: Speci men Type: BLOOD SPECIMENOrdering Facility: [facility] Address: [address] [place] [address] Performed By: #### 7 18-7 ####[facility][1] LABORATORYCLIA [id number] [address] [place] Hemoglobin (Bld) [Mass/Vol] 6.3 g/dL Low 13.0-17.0 [facility] Comment on above: Order Comment: Speci men Type: BLOOD SPECIMENOrdering Facility: [facility] Address: [address] [place] [address] Performed By: #### 7 18-7 ####[facility][1] LABORATORYCLIA [id number] [address] [place] Hemoglobin (Bld) [Mass/Vol] 7.1 g/dL Low 13.0-17.0 [facility] Comment on above: Order Comment: Speci men Type: BLOOD SPECIMENOrdering Facility: [facility] Address: [address] [place] [address] Performed By: #### 7 18-7 ####[facility][1] LABORATORYCLIA [id number] [address] [place] IR EMBO ARTERIAL/MAPPINGon 1 IR EMBO ARTERIAL/MAPPING Normal [facility] Lactate (Bld) [Moles/Vol]on 11-26-2024 Lactate [Moles/Vol] 1.6 mmol/L Normal 0.5-2.2 [facility] Comment on above: Order Comment: Speci men Type: BLOOD SPECIMENOrdering Facility: [facility] Address: [address] [place] [address] Performed By: #### 3 2693-4 ####[facility][1] LABORATORYCLIA [id number] [address] [place] NURSING PROGon 11-26-2024 NURSING PROG Normal [facility] XR ABDOMEN 1V SUPINEon 11-26 XR ABDOMEN 1V SUPINE Normal [facility] XR ABDOMEN 1V SUPINE Normal [facility] ANES POSTPROC EVALon 025 ANES POSTPROC EVAL Normal [facility] ANES PRE-OPon 11-25-2024 ANES PRE-OP Normal [facility] Basic metabolic 2000 panelon 11-25-2024 Anion gap [Moles/Vol] 8 mmol/L Normal 8-15 [facility] Comment on above: Order Comment: Speci men Type: BLOOD SPECIMENOrdering Facility: [facility] Address: [address] [place] [address] Performed By: #### 2 4321-2 ####[facility][1] LABORATORYCLIA [id number] [place] [address] [place] Calcium [Mass/Vol] 8.1 mg/dL Low 8.5-10.2 [facility] Comment on above: Order Comment: Speci men Type: BLOOD SPECIMENOrdering Facility: [facility] Address: [address] [place] [address] Performed By: #### 2 4321-2 ####[facility][1] LABORATORYCLIA [id number] [place] [address] [place] Chloride [Moles/Vol] 104 mmol/L Normal 98-107 [facility] Comment on above: Order Comment: Speci men Type: BLOOD SPECIMENOrdering Facility: [facility] Address: [address] [place] [address] Performed By: #### 2 4321-2 ####[facility][1] LABORATORYCLIA [id number] [place] [address] [place] CO2 [Moles/Vol] 21 mmol/L Low 22-30 [facility] Comment on above: Order Comment: Speci men Type: BLOOD SPECIMENOrdering Facility: [facility] Address: [address] [place] [address] Performed By: #### 2 4321-2 ####[facility][1] LABORATORYCLIA [id number] [place] [address] [place] Creatinine [Mass/Vol] 1.77 mg/dL High 0.73-1.22 [facility] Comment on above: Order Comment: Speci men Type: BLOOD SPECIMENOrdering Facility: [facility] Address: [address] [place] [address] Performed By: #### 2 4321-2 ####[facility][1] LABORATORYCLIA [id number] [place] [address] [place] eGFRcr SerPlBld CKD-EPI 2020 40 mL/min/1.73m??? Low >=60 [facility] Comment on above: Order Comment: Speci men Type: BLOOD SPECIMENOrdering Facility: [facility] Address: [address] [place] [address] Result Comment: Amy mated Glomerular Filtration Rate [...] actual GFR. Performed By: #### 2 4321-2 ####[facility][1] LABORATORYCLIA [id number] [place] [address] [place] Glucose [Mass/Vol] 131 mg/dL High 74-99 [facility] Comment on above: Order Comment: Speci caryl Type: BLOOD SPECIMENOrdering Facility: [facility] Address: [address] [place] [address] Result Comment: The [place] Diabetes Association (ADA) provides guidance for cutoff values for fasting glucose and random glucose. The ADA defines fasting as no caloric intake for at least 8 hours. Fasting plasma glucose results between 100 to 125 mg/dL indicate increased risk for diabetes (prediabetes).Fasting plasma glucose results greater than or equal to 126 mg/dL meet the criteria for diagnosis of diabetes. In the absence of unequivocal hyperglycemia, results should be confirmed by repeat testing. In a patient with classic symptoms of hyperglycemia or hyperglycemic crisis, random plasma glucose results greater than or equal to 200 mg/dL meet the criteria for diagnosis of diabetes.Reference: Standards of Medical Care in Diabetes 2016, [place] [employer]. Diabetes Care. 2016.39(Suppl 1). Performed By: #### 2 4321-2 ####[facility][1] LABORATORYCLIA [id number] [place] [address] [place] Potassium [Moles/Vol] 4.1 mmol/L Normal 3.7-5.1 [facility] Comment on above: Order Comment: Raul hutson Type: BLOOD SPECIMENOrdering Facility: [facility] Address: [address] [id number] Performed By: #### 2 4321-2 ####[facility][1] LABORATORYCLIA [id number] [place] [id number] [place] Sodium [Moles/Vol] 133 mmol/L Low 136-144 [facility] Comment on above: Order Comment: Speci men Type: BLOOD SPECIMENOrdering Facility: [facility] Address: [address] [place] [address] Performed By: #### 2 4321-2 ####[facility][1] LABORATORYCLIA [id number] [address] [place] Urea nitrogen [Mass/Vol] 56 mg/dL High 9-24 [facility] Comment on above: Order Comment: Speci men Type: BLOOD SPECIMENOrdering Facility: [facility] Address: [address] [place] [address] Performed By: #### 2 4321-2 ####[facility][1] LABORATORYCLIA [id number] [address] [place] CBC panel Auto (Bld)on 11-25 Erythrocyte distribution width (RBC) [Ratio] 17.2 % High 11.5-15.0 [facility] Comment on above: Order Comment: Speci men Type: BLOOD SPECIMENOrdering Facility: [facility] Address: [address] [place] [address] Performed By: #### 5 8410-2 ####[facility][1] LABORATORYCLIA [id number] [address] [place] Hematocrit (Bld) [Volume fraction] 25.0 % Low 39.0-51.0 [facility] Comment on above: Order Comment: Speci men Type: BLOOD SPECIMENOrdering Facility: [facility] Address: [address] [place] [address] Performed By: #### 5 8410-2 ####[facility][1] LABORATORYCLIA [id number] [address] [place] Hemoglobin (Bld) [Mass/Vol] 8.2 g/dL Low 13.0-17.0 [facility] Comment on above: Order Comment: Speci men Type: BLOOD SPECIMENOrdering Facility: [facility] Address: [address] [place] [address] Performed By: #### 5 8410-2 ####[facility][1] LABORATORYCLIA [id number] [address] MCH (RBC) [Entitic mass] 30.8 pg Normal 26.0-34.0 [facility] Comment on above: Order Comment: Speci men Type: BLOOD SPECIMENOrdering Facility: [facility] Address: [address] [place] [address] Performed By: #### 5 8410-2 ####[facility][1] LABORATORYCLIA [id number] [address] [place] MCHC (RBC) [Mass/Vol] 32.8 g/dL Normal 30.5-36.0 [facility] Comment on above: Order Comment: Speci men Type: BLOOD SPECIMENOrdering Facility: [facility] Address: [address] [place] [address] Performed By: #### 5 8410-2 ####[facility][1] LABORATORYCLIA [id number] [address] STATES OF [facility] MCV (RBC) [Entitic vol] 94.0 fL Normal 80.0-100.0 [facility] Comment on above: Order Comment: Speci men Type: BLOOD SPECIMENOrdering Facility: [facility] Address: [address] [place] [address] Performed By: #### 5 8410-2 ####[facility][1] LABORATORYCLIA [id number] [address] Nucleated RBC (Bld) [#/Vol] 10*3/uL Normal <0.01 [facility] Comment on above: Order Comment: Speci men Type: BLOOD SPECIMENOrdering Facility: [facility] Address: [address] [place] [address] Performed By: #### 5 8410-2 ####[facility][1] LABORATORYCLIA [id number] [address] Platelet mean volume (Bld) [Entitic vol] 8.9 fL Low 9.0-12.7 [facility] Comment on above: Order Comment: Speci men Type: BLOOD SPECIMENOrdering Facility: [facility] Address: [address] [place] [address] Performed By: #### 5 8410-2 ####[facility][1] LABORATORYCLIA [id number] [address] OF [facility] Platelets (Bld) [#/Vol] 110 10*3/uL Low 150-400 [facility] Comment on above: Order Comment: Speci men Type: BLOOD SPECIMENOrdering Facility: [facility] Address: [address] [place] [address] Performed By: #### 5 8410-2 ####[facility][1] LABORATORYCLIA [id number] [address] [place] RBC (Bld) [#/Vol] 2.66 10*6/uL Low 4.20-6.00 [facility] Comment on above: Order Comment: Speci men Type: BLOOD SPECIMENOrdering Facility: [facility] Address: [address] [place] [address] Performed By: #### 5 8410-2 ####[facility][1] LABORATORYCLIA [id number] [address] WBC (Bld) [#/Vol] 6.20 10*3/uL Normal 3.70-11.00 [facility] Comment on above: Order Comment: Speci men Type: BLOOD SPECIMENOrdering Facility: [facility] Address: [address] [place] [address] Performed By: #### 5 8410-2 ####[facility][1] LABORATORYCLIA [id number] [address] OF [facility] Hgb Bld-mCncon 11-25-2024 Hemoglobin (Bld) [Mass/Vol] 7.8 g/dL Low 13.0-17.0 [facility] Comment on above: Order Comment: Speci men Type: BLOOD SPECIMENOrdering Facility: [facility] Address: [address] [place] [address] Performed By: #### 7 18-7 ####[facility][1] LABORATORYCLIA [id number] [address] Upper GI endoscopyon 025 Upper GI endoscopy Normal [facility] Urine Cultureon 11-25-2024 URC Normal [facility] Comment on above: Performed By: #### M 100.2200 ####[facility] [address] [place], [address] ALLIED HEALTHon 11-24-2024 ALLIED HEALTH Normal [facility] Basic metabolic 2000 panelon 11-24-2024 Anion gap [Moles/Vol] 8 mmol/L Normal 8-15 [facility] Comment on above: Order Comment: Speci men Type: BLOOD SPECIMENOrdering Facility: [facility] Address: [address] [place] [address] Performed By: #### 2 4321-2 ####[facility][1] LABORATORYCLIA [id number] [place] [address] [place] Calcium [Mass/Vol] 7.8 mg/dL Low 8.5-10.2 [facility] Comment on above: Order Comment: Speci men Type: BLOOD SPECIMENOrdering Facility: [facility] Address: [address] [place] [address] Performed By: #### 2 4321-2 ####[facility][1] LABORATORYCLIA [id number] [place] [address] [place] Chloride [Moles/Vol] 109 mmol/L High 98-107 [facility] Comment on above: Order Comment: Speci men Type: BLOOD SPECIMENOrdering Facility: [facility] Address: [address] [place] [address] Performed By: #### 2 4321-2 ####[facility][1] LABORATORYCLIA [id number] [place] [address] [place] CO2 [Moles/Vol] 21 mmol/L Low 22-30 [facility] Comment on above: Order Comment: Speci men Type: BLOOD SPECIMENOrdering Facility: [facility] Address: [address] [place] [address] Performed By: #### 2 4321-2 ####[facility][1] LABORATORYCLIA [id number] [place] [address] [place] Creatinine [Mass/Vol] 1.85 mg/dL High 0.73-1.22 [facility] Comment on above: Order Comment: Raul hutson Type: BLOOD SPECIMENOrdering Facility: [facility] Address: [address] [place] [address] Performed By: #### 2 4321-2 ####[facility] [id number] [address] [place] eGFRcr SerPlBld CKD-EPI 2020 38 mL/min/1.73m??? Low >=60 [facility] Comment on above: Order Comment: Raul hutson Type: BLOOD SPECIMENOrdering Facility: [facility] Address: [address] [place] [address] Result Comment: Amy mated Glomerular Filtration Rate [...] actual GFR. Performed By: #### 2 4321-2 ####[facility] [id number] [address] [place] Glucose [Mass/Vol] 114 mg/dL High 74-99 [facility] Comment on above: Order Comment: Raul hutson Type: BLOOD SPECIMENOrdering Facility: [facility] Address: [address] [place] [address] Result Comment: The [place] Diabetes Association (ADA) provides guidance for cutoff values for fasting glucose and random glucose. The ADA defines fasting as no caloric intake for at least 8 hours. Fasting plasma glucose results between 100 to 125 mg/dL indicate increased risk for diabetes (prediabetes).Fasting plasma glucose results greater than or equal to 126 mg/dL meet the criteria for diagnosis of diabetes. In the absence of unequivocal hyperglycemia, results should be confirmed by repeat testing. In a patient with classic symptoms of hyperglycemia or hyperglycemic crisis, random plasma glucose results greater than or equal to 200 mg/dL meet the criteria for diagnosis of diabetes.Reference: Standards of Medical Care in Diabetes 2016, [place] [employer]. Diabetes Care. 2016.39(Suppl 1). Performed By: #### 2 4321-2 ####[facility][1] LABORATORYCLIA [id number] [address] STATES OF [facility] Potassium [Moles/Vol] 4.6 mmol/L Normal 3.7-5.1 [facility] Comment on above: Order Comment: Speci men Type: BLOOD SPECIMENOrdering Facility: [facility] Address: [address] [place] [address] Performed By: #### 2 4321-2 ####[facility][1] LABORATORYCLIA [id number] [address] Sodium [Moles/Vol] 138 mmol/L Normal 136-144 [facility] Comment on above: Order Comment: Speci men Type: BLOOD SPECIMENOrdering Facility: [facility] Address: [address] [place] [address] Performed By: #### 2 4321-2 ####[facility][1] LABORATORYCLIA [id number] [address] STATES [facility] Urea nitrogen [Mass/Vol] 74 mg/dL High 9-24 [facility] Comment on above: Order Comment: Speci men Type: BLOOD SPECIMENOrdering Facility: [facility] Address: [address] [place] [address] Performed By: #### 2 4321-2 ####[facility][1] LABORATORYCLIA [id number] [address] CBC panel Auto (Bld)on 11-24 Erythrocyte distribution width (RBC) [Ratio] 16.8 % High 11.5-15.0 [facility] Comment on above: Order Comment: Speci men Type: BLOOD SPECIMENOrdering Facility: [facility] Address: [address] [place] [address] Performed By: #### 5 8410-2 ####[facility][1] LABORATORYCLIA [id number] [address] Hematocrit (Bld) [Volume fraction] 25.1 % Low 39.0-51.0 [facility] Comment on above: Order Comment: Speci men Type: BLOOD SPECIMENOrdering Facility: [facility] Address: [address] [place] [address] Performed By: #### 5 8410-2 ####[facility][1] LABORATORYCLIA [id number] [address] STATES OF [facility] Hemoglobin (Bld) [Mass/Vol] 8.2 g/dL Low 13.0-17.0 [facility] Comment on above: Order Comment: Speci men Type: BLOOD SPECIMENOrdering Facility: [facility] Address: [address] [place] [address] Performed By: #### 5 8410-2 ####[facility][1] LABORATORYCLIA [id number] [address] STATES OF [facility] MCH (RBC) [Entitic mass] 30.6 pg Normal 26.0-34.0 [facility] Comment on above: Order Comment: Speci men Type: BLOOD SPECIMENOrdering Facility: [facility] Address: [address] [place] [address] Performed By: #### 5 8410-2 ####[facility][1] LABORATORYCLIA [id number] [address] [place] MCHC (RBC) [Mass/Vol] 32.7 g/dL Normal 30.5-36.0 [facility] Comment on above: Order Comment: Speci men Type: BLOOD SPECIMENOrdering Facility: [facility] Address: [address] [place] [address] Performed By: #### 5 8410-2 ####[facility][1] LABORATORYCLIA [id number] [address] MCV (RBC) [Entitic vol] 93.7 fL Normal 80.0-100.0 [facility] Comment on above: Order Comment: Speci men Type: BLOOD SPECIMENOrdering Facility: [facility] Address: [address] [place] [address] Performed By: #### 5 8410-2 ####[facility][1] LABORATORYCLIA [id number] [address] [place] Nucleated RBC (Bld) [#/Vol] 10*3/uL Normal <0.01 [facility] Comment on above: Order Comment: Speci men Type: BLOOD SPECIMENOrdering Facility: [facility] Address: [address] [place] [address] Performed By: #### 5 8410-2 ####[facility][1] LABORATORYCLIA [id number] [address] [place] Platelet mean volume (Bld) [Entitic vol] 9.6 fL Normal 9.0-12.7 [facility] Comment on above: Order Comment: Speci men Type: BLOOD SPECIMENOrdering Facility: [facility] Address: [address] [place] [address] Performed By: #### 5 8410-2 ####[facility][1] LABORATORYCLIA [id number] [address] [place] Platelets (Bld) [#/Vol] 86 10*3/uL Low 150-400 [facility] Comment on above: Order Comment: Speci men Type: BLOOD SPECIMENOrdering Facility: [facility] Address: [address] [place] [address] Performed By: #### 5 8410-2 ####[facility][1] LABORATORYCLIA [id number] [address] [place] RBC (Bld) [#/Vol] 2.68 10*6/uL Low 4.20-6.00 [facility] Comment on above: Order Comment: Speci men Type: BLOOD SPECIMENOrdering Facility: [facility] Address: [address] [place] [address] Performed By: #### 5 8410-2 ####[facility][1] LABORATORYCLIA [id number] [address] [place] WBC (Bld) [#/Vol] 7.18 10*3/uL Normal 3.70-11.00 [facility] Comment on above: Order Comment: Speci men Type: BLOOD SPECIMENOrdering Facility: [facility] Address: [address] [id number] Performed By: #### 5 8410-2 ####[facility][1] LABORATORYCLIA [id number] [place] [address] [place] CONSULTon 11-24-2024 CONSULT Normal [facility] Hgb Bld-mCncon 11-24-2024 Hemoglobin (Bld) [Mass/Vol] 8.5 g/dL Low 13.0-17.0 [facility] Comment on above: Order Comment: Speci men Type: BLOOD SPECIMENOrdering Facility: [facility] Address: [address] [id number] Performed By: #### 7 18-7 ####[facility][1] LABORATORYCLIA [id number] [place] [id number] [facility] [place] NUTRITIONon 11-24-2024 NUTRITION Normal [facility] 12 Lead EKGon 11-23-2024 12 Lead EKG Normal [facility] Absolute lymphocyte countOrd ered By: Juan Marie on 11-23-2024 Lymphocytes Auto (Unsp spec) [#/Vol] 1.04 10*3/uL 0.83-4.51 [facility] Acute Abdomen Inc Cheston Acute Abdomen Inc Chest Normal [facility] Anion gap in Serum or Plasma Ordered By: Juan Marie on 11-23-2024 Anion gap [Moles/Vol] 10 mmol/L 5-15 [facility] Automated lymphocyte count a s percentage of total leukocytesOrdered By: Juan Marie on 11-23-2024 Lymphocytes/100 WBC Auto (Unsp spec) 12.3 % Low 19-41 [facility] BRCon 11-23-2024 RC Normal [facility] Comment on above: Result Comment: [id number] AP RC TRANSFUSED 11/23/24 [id number] AP RC TRANSFUSED 11/23/24 1547 Performed By: #### B RC, BTS ####[facility] [address] [place], [place], [id number] BUN/creatinine ratioOrdered By: Juan Marie on 11-23-2024 Urea nitrogen/Creatinine [Mass ratio] 40.8 mg/mg High 10- [facility] Bacteria Ur Culton Bacteria identified Cx Nom (U) CULTURE, URINE: No growth (<1,000 CFU/ml) Normal [facility] Comment on above: Performed By: #### 2 4356-8, 630-4 ####[facility][1] LABORATORYCLIA [id number] [place] [address] [place] Basophil percentageOrdered B y: Juan Marie on 11-23-2024 Basophils/100 WBC (Bld) 0.6 % 0-1 [facility] Bilirubin Test strip Ql (U)O rdered By: Juan Frank on 11-23-2024 Bilirubin Ql (U) Negative Negative [facility] Bilirubin, totalOrdered By: Juan Frank on 11-23-2024 Bilirubin [Mass/Vol] 0.18 mg/dL 0.00-1.30 [facility] CBC W/Diff, Automatedon 11-07 Absolute Neut Normal 2.0-7.7 [facility] Comment on above: Result Comment: JUWAN ENT DISCHARGED Performed By: #### L 100.0100 ####[facility] [address] [place], [address] HCT Normal 40-54 [facility] Comment on above: Result Comment: JUWAN ENT DISCHARGED Performed By: #### L 100.0100 ####[facility] [address] [place], [address] HGB Normal 13.0-16.5 [facility] Comment on above: Result Comment: JUWAN ENT DISCHARGED Performed By: #### L 100.0100 ####[facility] [address] [place], [address] MCH Normal 27.0-32.0 [facility] Comment on above: Result Comment: JUWAN ENT DISCHARGED Performed By: #### L 100.0100 ####[facility] [address] [place], [address] MCHC Normal 32-36 [facility] Comment on above: Result Comment: JUWAN ENT DISCHARGED Performed By: #### L 100.0100 ####[facility] [address] [place], [address] MCV Normal 80-94 [facility] Comment on above: Result Comment: JUWAN ENT DISCHARGED Performed By: #### L 100.0100 ####[facility] [address] [place], [address] NEUT% Normal 47-70 [facility] Comment on above: Result Comment: JUWAN ENT DISCHARGED Performed By: #### L 100.0100 ####[facility] [address] [place], [address] PLT Normal 150-450 [facility] Comment on above: Result Comment: JUWAN ENT DISCHARGED Performed By: #### L 100.0100 ####[facility] [address] [place], [address] RBC Normal 4.6-6.2 [facility] Comment on above: Result Comment: JUWAN ENT DISCHARGED Performed By: #### L 100.0100 ####[facility] [address] [place], [address] RDW CV Normal 11.6-14.6 [facility] Comment on above: Result Comment: JUWAN ENT DISCHARGED Performed By: #### L 100.0100 ####[facility] [address] [place], [address] RDW SD Normal 35.1-43.9 [facility] Comment on above: Result Comment: JUWAN ENT DISCHARGED Performed By: #### L 100.0100 ####[facility] [address] [place], [address] WBC Normal 4.4-11.0 [facility] Comment on above: Result Comment: JUWAN ENT DISCHARGED Performed By: #### L 100.0100 ####[facility] [address] [place], [address] REACTIVE LYMPH RARE Normal [facility] Comment on above: Performed By: #### L 501.2450, L503.6005, L100.0100, L500.4050 ####[facility] [address] [place], [address] CBC panel Auto (Bld)on 11-23 Erythrocyte distribution width (RBC) [Ratio] 16.4 % High 11.5-15.0 [facility] Comment on above: Order Comment: Speci men Type: BLOOD SPECIMENOrdering Facility: [facility] Address: [address] [place] [address] Performed By: #### 5 8410-2 ####[facility][1] LABORATORYCLIA [id number] [address] [place] Hematocrit (Bld) [Volume fraction] 26.3 % Low 39.0-51.0 [facility] Comment on above: Order Comment: Speci men Type: BLOOD SPECIMENOrdering Facility: [facility] Address: [address] [place] [address] Performed By: #### 5 8410-2 ####[facility][1] LABORATORYCLIA [id number] [address] [place] Hemoglobin (Bld) [Mass/Vol] 8.8 g/dL Low 13.0-17.0 [facility] Comment on above: Order Comment: Speci men Type: BLOOD SPECIMENOrdering Facility: [facility] Address: [address] [place] [address] Performed By: #### 5 8410-2 ####[facility][1] LABORATORYCLIA [id number] [address] [place] MCH (RBC) [Entitic mass] 31.1 pg Normal 26.0-34.0 [facility] Comment on above: Order Comment: Speci men Type: BLOOD SPECIMENOrdering Facility: [facility] Address: [address] [place] [address] Performed By: #### 5 8410-2 ####[facility][1] LABORATORYCLIA [id number] [address] STATES OF [facility] MCHC (RBC) [Mass/Vol] 33.5 g/dL Normal 30.5-36.0 [facility] Comment on above: Order Comment: Speci men Type: BLOOD SPECIMENOrdering Facility: [facility] Address: [address] [place] [address] Performed By: #### 5 8410-2 ####[facility][1] LABORATORYCLIA [id number] [address] OF [facility] MCV (RBC) [Entitic vol] 92.9 fL Normal 80.0-100.0 [facility] Comment on above: Order Comment: Speci men Type: BLOOD SPECIMENOrdering Facility: [facility] Address: [address] [place] [address] Performed By: #### 5 8410-2 ####[facility] [id number] [address] Nucleated RBC (Bld) [#/Vol] 0.02 10*3/uL High <0.01 [facility] Comment on above: Order Comment: Speci men Type: BLOOD SPECIMENOrdering Facility: [facility] Address: [address] [place] [address] Performed By: #### 5 8410-2 ####[facility][1] LABORATORYCLIA [id number] [address] STATES OF [facility] Platelet mean volume (Bld) [Entitic vol] 9.6 fL Normal 9.0-12.7 [facility] Comment on above: Order Comment: Speci men Type: BLOOD SPECIMENOrdering Facility: [facility] Address: [address] [place] [address] Performed By: #### 5 8410-2 ####[facility][1] LABORATORYCLIA [id number] [address] [place] Platelets (Bld) [#/Vol] 93 10*3/uL Low 150-400 [facility] Comment on above: Order Comment: Speci men Type: BLOOD SPECIMENOrdering Facility: [facility] Address: [address] [place] [address] Performed By: #### 5 8410-2 ####[facility][1] LABORATORYCLIA [id number] [address] [place] RBC (Bld) [#/Vol] 2.83 10*6/uL Low 4.20-6.00 [facility] Comment on above: Order Comment: Speci men Type: BLOOD SPECIMENOrdering Facility: [facility] Address: [address] [place] [address] Performed By: #### 5 8410-2 ####[facility][1] LABORATORYCLIA [id number] [address] [place] WBC (Bld) [#/Vol] 8.23 10*3/uL Normal 3.70-11.00 [facility] Comment on above: Order Comment: Speci men Type: BLOOD SPECIMENOrdering Facility: [facility] Address: [address] [place] [address] Performed By: #### 5 8410-2 ####[facility][1] LABORATORYCLIA [id number] [address] [place] Erythrocyte distribution width (RBC) [Ratio] 16.2 % High 11.5-15.0 [facility] Comment on above: Order Comment: Speci men Type: BLOOD SPECIMENOrdering Facility: [facility] Address: [address] [place] [address] Performed By: #### 5 8410-2 ####[facility][1] LABORATORYCLIA [id number] [address] Hematocrit (Bld) [Volume fraction] 29.3 % Low 39.0-51.0 [facility] Comment on above: Order Comment: Speci men Type: BLOOD SPECIMENOrdering Facility: [facility] Address: [address] [place] [address] Performed By: #### 5 8410-2 ####[facility]ORATORYCLIA [id number] [address] [facility] Hemoglobin (Bld) [Mass/Vol] 9.7 g/dL Low 13.0-17.0 [facility] Comment on above: Order Comment: Speci men Type: BLOOD SPECIMENOrdering Facility: [facility] Address: [address] [place] [address] Performed By: #### 5 8410-2 ####[facility][1] LABORATORYCLIA [id number] [address] MCH (RBC) [Entitic mass] 31.3 pg Normal 26.0-34.0 [facility] Comment on above: Order Comment: Speci men Type: BLOOD SPECIMENOrdering Facility: [facility] Address: [address] [place] [address] Performed By: #### 5 8410-2 ####[facility][1] LABORATORYCLIA [id number] [address] MCHC (RBC) [Mass/Vol] 33.1 g/dL Normal 30.5-36.0 [facility] Comment on above: Order Comment: Speci men Type: BLOOD SPECIMENOrdering Facility: [facility] Address: [address] [place] [address] Performed By: #### 5 8410-2 ####[facility][1] LABORATORYCLIA [id number] [address] [place] MCV (RBC) [Entitic vol] 94.5 fL Normal 80.0-100.0 [facility] Comment on above: Order Comment: Speci men Type: BLOOD SPECIMENOrdering Facility: [facility] Address: [address] [place] [address] Performed By: #### 5 8410-2 ####[facility][1] LABORATORYCLIA [id number] [address] Nucleated RBC (Bld) [#/Vol] 10*3/uL Normal <0.01 [facility] Comment on above: Order Comment: Speci men Type: BLOOD SPECIMENOrdering Facility: [facility] Address: [address] [place] [address] Performed By: #### 5 8410-2 ####[facility][1] LABORATORYCLIA [id number] [address] Platelet mean volume (Bld) [Entitic vol] 9.4 fL Normal 9.0-12.7 [facility] Comment on above: Order Comment: Speci men Type: BLOOD SPECIMENOrdering Facility: [facility] Address: [address] [place] [address] Performed By: #### 5 8410-2 ####[facility][1] LABORATORYCLIA [id number] [address] [facility] Platelets (Bld) [#/Vol] 92 10*3/uL Low 150-400 [facility] Comment on above: Order Comment: Speci men Type: BLOOD SPECIMENOrdering Facility: [facility] Address: [address] [place] [address] Result Comment: No c lot detected. Performed By: #### 5 8410-2 ####[facility][1] LABORATORYCLIA [id number] [address] STATES OF [facility] RBC (Bld) [#/Vol] 3.10 10*6/uL Low 4.20-6.00 [facility] Comment on above: Order Comment: Speci men Type: BLOOD SPECIMENOrdering Facility: [facility] Address: [address] [place] [address] Performed By: #### 5 8410-2 ####[facility][1] LABORATORYCLIA [id number] [address] [facility] WBC (Bld) [#/Vol] 9.20 10*3/uL Normal 3.70-11.00 [facility] Comment on above: Order Comment: Speci men Type: BLOOD SPECIMENOrdering Facility: [facility] Address: [address] [place] [address] Performed By: #### 5 8410-2 ####[facility][1] LABORATORYCLIA [id number] [address] [facility] CNCRITCRon 11-23-[facility]24 [facility]p ort (CCT) ABELARDO IVORY ([id number]) 1950 M Date Time Provider Department 11/23/24 RAUL SALDIVAR [facility] During your visit today, we recorded the following information about you: Raul aSldivar APRN.CNP 11/25/2024 11:15 AM Signed Critical Care Transport Note Patient Name: Abelardo Ivory Service Date: November 23, 2024 Referring Physician: Frank Accepting Physician: Fuad Referring Facility: [facility] Accepting Facility: [facility] SUBJECTIVE/CHIEF COMPLAINT: "I had blood coming out of both ends" REASON FOR TRANSPORT: Patient being transferred for higher level of intensive care and surgical services unavailable at, or beyond the capabilities of, the referring facility. History of Present Illness: The following history is what was known to CCT team at time of given care and summarized through: review of available medical records, patient interview, and referring nursing report Abelardo Ivory is a 74 year old male with a past medical history significant for Bladder CA s/p cystoscopy several weeks ago and recently completed chemo, Hypertension, Hyperlipidemia, COPD, ruptured AAA s/p repair, CKD, CAD, former smoker (recently quit), and others documented below. He presented to [place] [facility] on 11/23/2024 for evaluation of blood in stool and hematemesis. Of note, the patient was just discharged 2 days prior after being found to have an oozing duodenal ulcer, for which clips were placed and he was discharge with a hemoglobin of 9. Presently, in the ER he was complaining of abdominal pain and penile pain. He reports the penile pain has been ongoing since his cystoscopy several weeks ago and was exacerbated by urination. He reports abdominal pain associated with black stools and hematemesis. He subsequently had another black tarry bowel movement in the ER. While in the ER, he became hypotensive with associated "dusky" appearance and light-headedness. Hemoglobin was found to be 7.2. He denied anticoagulation, but does take a daily low-dose aspirin. Two units of PRBCs were transfused with improvement in his clinical signs and normalization of his blood pressure. He was loaded with Protonix (80 mg) and started on octreotide infusion. He was given ceftriaxone for prophylaxis and treated with both morphine and Dilaudid for analgesia. Other notable labs: Creatinine 1.6, vBG 7.34/23/36/22, WBC 8.4k, platelets 113k. He was briefly started on bicarb infusion, but this was later stopped. It was determined he required transfer for higher level of ICU care and surgical services beyond the capabilities of the referring facility. At this time, the physician managing the patient requested transfer to [facility] for tertiary and/or quaternary services unavailable at the referring facility. Patient condition at time of exam was: Acutely ill and critically ill. Due to the unique circumstances of the patient, it was determined that this was the closest, most appropriate facility by referring physician. The physician managing the patient requested the [facility] Critical Care Transport Team transport and treat the patient for the purpose of tertiary care, evaluation, and management of his surgical condition(s). Air medical transport was requested to reduce the ktj-qi-rhicxdnn time, 17 minutes by air vs. approximately 50 minutes by ground, with the potential for increased ground transport time secondary to: traffic congestion and distance between facilities and the patient's condition requiring an emergent procedure or evaluation not available at the referring facility ROS: A complete review of systems was performed and is negative except as noted in [place] +abdominal pain (currently denies) +penile pain +n/v +bloody stool and emesis PAST MEDICAL HISTORY: PAST MEDICAL HISTORY Diagnosis [...] SURGICAL HISTORY OF 12/28/2021 AAA repair - "Stable status post graft repair of abdominal aortic aneurysm." PAST SURGICAL HISTORY OF 2024 Hernia repair PAST SURGICAL HISTORY OF 06/27/2024 Biopsy bladder REMV CATARACT EXTRACAP,INSERT LENS Left REM (more content not included)... [facility] CO2 (BldV) [Moles/Vol]Ordere d By: Juan Marie on 11-23-2024 CO2 [Moles/Vol] 23 mmol/L 23-33 [facility] Carbon dioxide, total [Moles /volume] in Central venous bloodOrdered By: Juan Marie on 11-23-2024 CO2 [Moles/Vol] 21.8 mmol/L 21.0-32.0 [facility] Chloride assayOrdered By: Ismael Marie on 11-23-2024 Chloride [Moles/Vol] 104 mmol/L 98-108 [facility] Comprehensive Metabolic Prof ilon 11-23-2024 Albumin [Mass/Vol] 3.1 g/dL Low 3.4-4.8 [facility] Comment on above: Performed By: #### L 501.2450, L503.6005, L100.0100, L500.4050 ####[facility] [address] [place], [address] Albumin/Globulin [Mass ratio] 1.7 {ratio} Normal 0.9-2.4 [facility] Comment on above: Performed By: #### L 501.2450, L503.6005, L100.0100, L500.4050 ####[facility] [address] [place], [address] ALK PHOS 41 U/L Normal 40-129 [facility] Comment on above: Performed By: #### L 501.2450, L503.6005, L100.0100, L500.4050 ####[facility] [address] [place], [address] ALT [Catalytic activity/Vol] 9 U/L Normal <=46 [facility] Comment on above: Performed By: #### L 501.2450, L503.6005, L100.0100, L500.4050 ####[facility] [address] [place], [address] AST [Catalytic activity/Vol] 14 U/L Normal <=37 [facility] Comment on above: Performed By: #### L 501.2450, L503.6005, L100.0100, L500.4050 ####[facility] [address] [place], [address] Bilirubin [Mass/Vol] 0.18 mg/dL Normal 0.00-1.30 [facility] Comment on above: Performed By: #### L 501.2450, L503.6005, L100.0100, L500.4050 ####[facility] [address] [place], [address] BUN/CRE 40.8 RATIO High 10-20 [facility] Comment on above: Performed By: #### L 501.2450, L503.6005, L100.0100, L500.4050 ####[facility] [address] [place], [address] Calcium [Mass/Vol] 8.5 mg/dL Normal 7.6-11.0 [facility] Comment on above: Performed By: #### L 501.2450, L503.6005, L100.0100, L500.4050 ####[facility] [address] [place], [address] Chloride [Moles/Vol] 104 mmol/L Normal 98-108 [facility] Comment on above: Performed By: #### L 501.2450, L503.6005, L100.0100, L500.4050 ####[facility] [address] [place], [address] CO2 [Moles/Vol] 21.8 mmol/L Normal 21.0-32.0 [facility] Comment on above: Performed By: #### L 501.2450, L503.6005, L100.0100, L500.4050 ####[facility] [address] [place], [address] Creatinine [Mass/Vol] 1.66 mg/dL High 0.70-1.20 [facility] Comment on above: Performed By: #### L 501.2450, L503.6005, L100.0100, L500.4050 ####[facility] [address] [place], [address] GAP 10 Normal 5-15 [facility] Comment on above: Performed By: #### L 501.2450, L503.6005, L100.0100, L500.4050 ####[facility] [address] [place], [address] GFR/1.73 sq M.predicted among non-blacks MDRD (S/P/Bld) [Vol rate/Area] 43 mL/min/{1.73_m2} Low >60 [facility] Comment on above: Result Comment: mL/m in/1.73m2 CKD-EPI Creatinine Equation (2020) Performed By: #### L 501.2450, L503.6005, L100.0100, L500.4050 ####[facility] [address] [place], [address] Globulin (S) [Mass/Vol] 1.8 g/dL Low 2.2-4.2 [facility] Comment on above: Performed By: #### L 501.2450, L503.6005, L100.0100, L500.4050 ####[facility] [address] [place], [address] Glucose [Mass/Vol] 136 mg/dL High 70-99 [facility] Comment on above: Performed By: #### L 501.2450, L503.6005, L100.0100, L500.4050 ####[facility] [address] [place], [address] Potassium [Moles/Vol] 4.8 mmol/L Normal 3.3-5.1 [facility] Comment on above: Performed By: #### L 501.2450, L503.6005, L100.0100, L500.4050 ####[facility] [address] [place], [address] Sodium [Moles/Vol] 136 mmol/L Normal 133-145 [facility] Comment on above: Performed By: #### L 501.2450, L503.6005, L100.0100, L500.4050 ####[facility] [address] [place], [address] T PROT 4.9 g/dL Low 5.9-8.4 [facility] Comment on above: Performed By: #### L 501.2450, L503.6005, L100.0100, L500.4050 ####[facility] [address] [place], [address] Urea nitrogen [Mass/Vol] 68 mg/dL High 4-19 [facility] Comment on above: Performed By: #### L 501.2450, L503.6005, L100.0100, L500.4050 ####[facility] [address] [place], [address] Comprehensive metabolic 2000 panelon 11-23-2024 Albumin [Mass/Vol] 3.0 g/dL Low 3.9-4.9 [facility] Comment on above: Order Comment: Speci men Type: BLOOD SPECIMENOrdering Facility: [facility] Address: [address] [place] [address] Performed By: #### 2 4323-8, ####[facility][1] LABORATORYCLIA [id number] [place] [address] [place] ALP [Catalytic activity/Vol] 41 U/L Normal 38-113 [facility] Comment on above: Order Comment: Speci men Type: BLOOD SPECIMENOrdering Facility: [facility] Address: [address] [place] [address] Performed By: #### 2 4323-8, ####[facility][1] LABORATORYCLIA [id number] [place] [address] [place] ALT With P-5'-P [Catalytic activity/Vol] 9 U/L Low 10-54 [facility] Comment on above: Order Comment: Speci men Type: BLOOD SPECIMENOrdering Facility: [facility] Address: [address] [place] [address] Performed By: #### 2 4328, ####[facility][1] LABORATORYCLIA [id number] [address] [facility] Anion gap [Moles/Vol] 9 mmol/L Normal 8-15 [facility] Comment on above: Order Comment: Speci men Type: BLOOD SPECIMENOrdering Facility: [facility] Address: [address] [place] [address] Performed By: #### 2 4328, ####[facility][1] LABORATORYCLIA [id number] [place] [address] [place] AST With P-5'-P [Catalytic activity/Vol] 12 U/L Low 14-40 [facility] Comment on above: Order Comment: Speci men Type: BLOOD SPECIMENOrdering Facility: [facility] Address: [address] [place] [address] Performed By: #### 2 4323-8, ####[facility]ORATORYCLIA [id number] [place] [id number] [place] Bilirubin [Mass/Vol] 0.3 mg/dL Normal 0.2-1.3 [facility] Comment on above: Order Comment: Speci men Type: BLOOD SPECIMENOrdering Facility: [facility] Address: [address] [place] [address] Performed By: #### 2 4322-09, ####[facility] LABORATORYCLIA [id number] [place] [address] [place] Calcium [Mass/Vol] 8.0 mg/dL Low 8.5-10.2 [facility] Comment on above: Order Comment: Speci men Type: BLOOD SPECIMENOrdering Facility: [facility] Address: [address] [place] [address] Performed By: #### 2 4322-09, ####[facility][1] LABORATORYCLIA [id number] [place] [address] [place] Chloride [Moles/Vol] 109 mmol/L High 98-107 [facility] Comment on above: Order Comment: Speci men Type: BLOOD SPECIMENOrdering Facility: [facility] Address: [address] [place] [address] Performed By: #### 2 4322-09, ####[facility]ORATORYCLIA [id number] [place] [address] [place] CO2 [Moles/Vol] 21 mmol/L Low 22-30 [facility] Comment on above: Order Comment: Speci men Type: BLOOD SPECIMENOrdering Facility: [facility] Address: [address] [place] [address] Performed By: #### 2 4322-09, ####[facility]ORATORYCLIA [id number] [place] [address] [place] Creatinine [Mass/Vol] 1.85 mg/dL High 0.73-1.22 [facility] Comment on above: Order Comment: Speci men Type: BLOOD SPECIMENOrdering Facility: [facility] Address: [address] [place] [address] Performed By: #### 2 4322-09, ####[facility]ORATORYCLIA [id number] [place] [address] [place] eGFRcr SerPlBld CKD-EPI 2020 38 mL/min/1.73m??? Low >=60 [facility] Comment on above: Order Comment: Raul hutson Type: BLOOD SPECIMENOrdering Facility: [facility] Address: [address] [place] [address] Result Comment: Amy mated Glomerular Filtration Rate [...] actual GFR. Performed By: #### 2 4323-8, 35345-0 ####[facility][1] LABORATORYCLIA [id number] [place] [address] [place] Glucose [Mass/Vol] 137 mg/dL High 74-99 [facility] Comment on above: Order Comment: Raul hutson Type: BLOOD SPECIMENOrdering Facility: [facility] Address: [address] [place] [address] Result Comment: The [place] [employer] (ADA) provides guidance for cutoff values for fasting glucose and random glucose. The ADA defines fasting as no caloric intake for at least 8 hours. Fasting plasma glucose results between 100 to 125 mg/dL indicate increased risk for diabetes (prediabetes).Fasting plasma glucose results greater than or equal to 126 mg/dL meet the criteria for diagnosis of diabetes. In the absence of unequivocal hyperglycemia, results should be confirmed by repeat testing. In a patient with classic symptoms of hyperglycemia or hyperglycemic crisis, random plasma glucose results greater than or equal to 200 mg/dL meet the criteria for diagnosis of diabetes.Reference: Standards of Medical Care in Diabetes 2016, [place] [employer]. Diabetes Care. 2016.39(Suppl 1). Performed By: #### 2 4323-8, 49334-1 ####[facility][1] LABORATORYCLIA [id number] [place] [address] [place] Potassium [Moles/Vol] 5.2 mmol/L High 3.7-5.1 [facility] Comment on above: Order Comment: Speci men Type: BLOOD SPECIMENOrdering Facility: [facility] Address: [address] [place] [address] Performed By: #### 2 4323-8, ####[facility]ORATORYCLIA [id number] [place] [address] [place] Protein [Mass/Vol] 4.9 g/dL Low 6.3-8.0 [facility] Comment on above: Order Comment: Speci men Type: BLOOD SPECIMENOrdering Facility: [facility] Address: [address] [place] [address] Performed By: #### 2 4323-8, ####[facility]ORATORYCLIA [id number] [place] [id number] [place] Sodium [Moles/Vol] 139 mmol/L Normal 136-144 [facility] Comment on above: Order Comment: Speci men Type: BLOOD SPECIMENOrdering Facility: [facility] Address: [address] [place] [address] Performed By: #### 2 4323-8, ####[facility]ORATORYCLIA [id number] [place] [id number] [place] Urea nitrogen [Mass/Vol] 67 mg/dL High 9-24 [facility] Comment on above: Order Comment: Speci men Type: BLOOD SPECIMENOrdering Facility: [facility] Address: [address] [place] [address] Performed By: #### 2 4323-8, 50772-1 ####[facility]ORATORYCLIA [id number] [place] [address] [place] Electrocardiogram reportOrde red By: Raheem Farrar on 11-23-2024 EKG study [facility] Other Emergency Department Summary on 11-23-2024 Emergency Department Summary Normal [facility] Eosinophil percentageOrdered By: Juan Marie on 11-23-2024 Eosinophils/100 WBC (Bld) 0.7 % 0-5 [facility] Erythrocyte distribution wid th ratioOrdered By: Juan Marie on 11-23-2024 Erythrocyte distribution width (RBC) [Ratio] 16.6 % High 11.6-14.6 [facility] Erythrocyte distribution wid th standard deviationOrdered By: Juan Marie on 11-23-2024 Erythrocyte distribution width (RBC) [Ratio] 52.2 fl High 35.1-43.9 [facility] Glomerular filtration rate ( GFR) estimation/1.73 sq m using serum, plasma, or whole bOrdered By: Juan Marie on 11-23-2024 GFR/1.73 sq M.predicted among non-blacks MDRD (S/P/Bld) [Vol rate/Area] 43 mL/min/{1.73_m2} Low >60 [facility] HISTORY PHYSICALon HISTORY PHYSICAL Normal [facility] Hematocrit Auto (Bld) [Volum e fraction]Ordered By: Juan Marie on 11-23-2024 Hematocrit (Bld) [Volume fraction] 22.0 % Low 40-54 [facility] Hemoglobin measurementOrdere d By: Juan Marie on 11-23-2024 Hemoglobin (Bld) [Mass/Vol] 7.2 g/dL Low 13.0-16.5 [facility] Immature granulocytes/100 WB C Auto (Bld)Ordered By: Juan Marie on 11-23-2024 Immature granulocytes/100 WBC (Bld) 0.900 % 0.0-0.9 [facility] Ketones Test strip Ql (U)Ord ered By: Juan Marie on 11-23-2024 Ketones Ql (U) Negative Negative [facility] Lactic Acidon 11-23-2024 Lactate [Moles/Vol] 1.3 mmol/L Normal 0.0-2.0 [facility] Comment on above: Order Comment: Y Performed By: #### L 501.6318, L503.9460, L100.0100, L500.5650 ####[facility] [address] [place], [address] Lipaseon 11-23-2024 Lipase [Catalytic activity/Vol] 38 U/L Normal 13-75 [facility] Comment on above: Result Comment: Yumiko boyce note:LIPASE revised reference range effective 22.New Lipase methodology. Expected to produce lower valuesthan the previous assay method.NEW Reference Range: 13 - 75 U/L Performed By: #### L 501.2450, L503.6005, L100.0100, L500.4050 ####[facility] [address] [place], [place], [id number] MCV (mean corpuscular volume ) determinationOrdered By: Juan Marie on 11-23-2024 MCV (RBC) [Entitic vol] 97.3 fL High 80-94 [facility] Magnesium SerPl-mCncon 11-23 Magnesium [Mass/Vol] 2.0 mg/dL Normal 1.7-2.3 [facility] Comment on above: Order Comment: Speci men Type: BLOOD SPECIMENOrdering Facility: [facility] Address: [address] [place] [address] Performed By: #### 2 4323-8, 52710-7 ####[facility][1] LABORATORYCLIA [id number] [place], [place] [id number] [place] [address] [place] [facility] Mean corpuscular hemoglobin (MCH) determinationOrdered By: Juan Marie on 11-23-2024 MCH (RBC) [Entitic mass] 31.9 pg 27.0-32.0 [facility] Monocyte percentageOrdered B y: Juan Marie on 11-23-2024 Monocytes/100 WBC (Bld) 7.5 % 0-10 [facility] Mucus LM Ql (Urine sed)Order ed By: Juan Marie on 11-23-2024 Mucus Ql (Urine sed) 0 SEEN /hpf [facility] Neutrophil percentageOrdered By: Juan Marie on 11-23-2024 Neutrophils/100 WBC (Bld) 78.0 % High 47-70 [facility] Nitrite Test strip Ql (U)Ord ered By: Juan Marie on 11-23-2024 Nitrite Ql (U) Negative Negative [facility] No Panel InformationOrdered By: Juan Marie on 11-23-2024 FAITH [facility] Not entered [facility] 14 U/L <38 [facility] PT panel Coag (PPP)on 2024 INR Coag (PPP) [Relative time] 1.1 {INR} Normal 0.9-1.3 [facility] Comment on above: Order Comment: Raul hutson Type: BLOOD SPECIMENOrdering Facility: [facility] Address: [address] [place] [id number] Result Comment: Tory min K Antagonist (VKA) Therapeutic Range: INR 2 to 3 (Target INR of 2.5)Note: For patients treated with VKA drugs, such as warfarin, the [place] [employer] 2012 Guideline recommends a therapeutic INR range of 2 to 3 (target INR of 2.5). This recommendation includes high-risk patients with antiphospholipid syndrome with previous arterial or venous thromboembolism, current-generation mechanical or bioprosthetic aortic heart valve replacement.Note: Patients with mechanical aortic valve replacement and additional risk factors for thromboembolic events (atrial fibrillation, previous thromboembolism, LV dysfunction, hypercoagulable conditions) or an older generation mechanical AVR (i.e., ball in-Cage) or any mechanical MVR should have a INR therapeutic range of 2.5 to 3.5 (target INR of 3).Selam GH, et al. Chest 2012, 141:7S-47SNishimura RA, et al. JAC 2017, 70: 252-289 Performed By: #### 3 4528-0 ####[facility][1] LABORATORYCLIA [id number] [place] [address] [place] PT Coag (PPP) [Time] 10.9 s Normal 9.7-13.0 [facility] Comment on above: Order Comment: Raul hutson Type: BLOOD SPECIMENOrdering Facility: [facility] Address: [address] [id number] Performed By: #### 3 4528-0 ####[facility][1] LABORATORYCLIA [id number] [address] [place] Platelet countOrdered By: Ismael Marie on 11-23-2024 Platelets (Bld) [#/Vol] 113 10*3/uL Low 150-450 [facility] Potassium measurement (mass/ volume)Ordered By: Juan Marie on 11-23-2024 Potassium (Unsp spec) [Mass/Vol] 4.8 mmol/L 3.3-5.1 [facility] Protein Test strip Ql (U)Ord ered By: Juan Marie on 11-23-2024 Protein Ql (U) 30 mg/dl High Negative [facility] RBC Auto (Bld) [#/Vol]Ordere d By: Juan Marie on 11-23-2024 RBC (Bld) [#/Vol] 2.26 10*6/uL Low 4.6-6.2 [facility] STAPHYLOCOCCUS AUREUS AND MR SA SCREEN, PCR, NASALon 11-23-2024 S. aureus and MRSA panel AMBER+probe (Nose) Not detected Normal Not Detected [facility] Comment on above: Order Comment: Speci men Type: SWABOrdering Facility: [facility] Address: [address] [id number] Performed By: #### S APCR ####[facility][1] LABORATORYCLIA [id number] [place] [address] [place] Serum creatinine measurement (mass/volume)Ordered By: Juan Marie on 11-23-2024 Creatinine [Mass/Vol] 1.66 mg/dL High 0.70-1.20 [facility] Serum globulin measurementOr dered By: Juan Marie on 11-23-2024 Globulin (S) [Mass/Vol] 1.8 g/dL Low 2.2-4.2 [facility] Serum glucose measurement (m ass/volume)Ordered By: Juan Marie on 11-23-2024 Glucose [Mass/Vol] 136 mg/dL High 70-99 [facility] Serum or plasma alanine perales otransferase (ALT) measurementOrdered By: Juan Marie on 11-23-2024 ALT [Catalytic activity/Vol] 9 U/L <47 [facility] Serum or plasma albumin jamel urement (mass/volume)Ordered By: Juan Marie on 11-23-2024 Albumin [Mass/Vol] 3.1 g/dL Low 3.4-4.8 [facility] Serum or plasma albumin/glob ulin mass ratioOrdered By: Juan Marie on 11-23-2024 Albumin/Globulin [Mass ratio] 1.7 {ratio} 0.9-2.4 [facility] Serum or plasma alkaline masha sphatase measurementOrdered By: Juan Marie on 11-23-2024 ALP [Catalytic activity/Vol] 41 U/L 40-129 [facility] Serum or plasma calcium jamel urement (mass/volume)Ordered By: Juan Marie on 11-23-2024 Calcium [Mass/Vol] 8.5 mg/dL 7.6-11.0 [facility] Serum or plasma urea nitroge n measurement (mass/volume)Ordered By: Juan Marie on 11-23-2024 Urea nitrogen [Mass/Vol] 68 mg/dL High 4-19 [facility] Sodium levelOrdered By: Nhan Marie on 11-23-2024 Sodium [Moles/Vol] 136 mmol/L 133-145 [facility] Squamous epithelial cells de tection in urine sediment by light microscopyOrdered By: Juan Marie on 11-23-2024 Epithelial cells.squamous LM Ql (Urine sed) 0 SEEN /hpf 0-5 [facility] TYPE + SCREENon 11-23-2024 ABO A Normal [facility] Comment on above: Order Comment: Speci men Type: BLOOD SPECIMENOrdering Facility: [facility] Address: [address] [place] [address] Performed By: #### T SCR ####[facility][1] BLOOD BANKCLIA [id number] [place] [address] [place] Rh Nom (Bld) Positive Normal [facility] Comment on above: Order Comment: Speci men Type: BLOOD SPECIMENOrdering Facility: [facility] Address: [address] [place] [address] Performed By: #### T SCR ####[facility][1] BLOOD BANKCLIA [id number] [place] [address] [place] TYPE AND SCREEN EXPIRATION 11/26/2024 23:59 Normal [facility] Comment on above: Order Comment: Speci men Type: BLOOD SPECIMENOrdering Facility: [facility] Address: [address] [place] [address] Performed By: #### T SCR ####[facility][1] BLOOD BANKCLIA [id number] [address] [place] Total proteinOrdered By: Ayo sagastume Frank on 11-23-2024 Protein [Mass/Vol] 4.9 g/dL Low 5.9-8.4 [facility] Type AND Screenon 11-23-2024 ABO and Rh group Nom (Bld) Blood group A Rh(D) positive Normal [facility] Comment on above: Order Comment: AN Performed By: #### B RC, BTS ####[facility] [address] [place], [address] Urinalysis complete panel (U )on 11-23-2024 Bilirubin Ql (U) Negative Normal Negative [facility] Comment on above: Order Comment: Speci men Type: URINE SPECIMENOrdering Facility: [facility] Address: [address] [place] [address] Performed By: #### 2 4356-8, 630-4 ####[facility][1] LABORATORYCLIA [id number] [address] [place] Clarity (Unsp spec) Clear Normal Clear [facility] Comment on above: Order Comment: Speci men Type: URINE SPECIMENOrdering Facility: [facility] Address: [address] [place] [address] Performed By: #### 2 4356-8, 630-4 ####[facility][1] LABORATORYCLIA [id number] [address] STATES OF [facility] Color (U) Colorless Normal yellow [facility] Comment on above: Order Comment: Speci men Type: URINE SPECIMENOrdering Facility: [facility] Address: [address] [place] [address] Performed By: #### 2 4356-8, 630-4 ####[facility][1] LABORATORYCLIA [id number] [address] [place] Glucose Test strip (U) [Mass/Vol] Negative Normal Trace, Negative [facility] Comment on above: Order Comment: Speci men Type: URINE SPECIMENOrdering Facility: [facility] Address: [address] [place] [address] Performed By: #### 2 4356-8, 630-4 ####[facility][1] LABORATORYCLIA [id number] [place], [place] [id number] [place] [address] [place] Hemoglobin Ql (U) 1+ Abnormal Negative, Trace [facility] Comment on above: Order Comment: Speci men Type: URINE SPECIMENOrdering Facility: [facility] Address: [address] [place] [address] Performed By: #### 2 4356-8, 630-4 ####[facility][1] LABORATORYCLIA [id number] [address] [place] Hyaline casts (Urine sed) [#/Area] 1-3 /LPF Abnormal 0 /LPF [facility] Comment on above: Order Comment: Speci men Type: URINE SPECIMENOrdering Facility: [facility] Address: [address] [place] [address] Performed By: #### 2 4356-8, 630-4 ####[facility][1] LABORATORYCLIA [id number] [place] [address] [place] Ketones Ql (U) Negative Normal Negative, Trace [facility] Comment on above: Order Comment: Speci men Type: URINE SPECIMENOrdering Facility: [facility] Address: [address] [place] [address] Performed By: #### 2 4356-8, 630-4 ####[facility][1] LABORATORYCLIA [id number] [place] [address] [place] Leukocyte esterase Test strip Ql (U) 25 Stef/uL Normal Negative, 25 Stef/uL [facility] Comment on above: Order Comment: Speci men Type: URINE SPECIMENOrdering Facility: [facility] Address: [address] [place] [address] Performed By: #### 2 4356-8, 630-4 ####[facility][1] LABORATORYCLIA [id number] [place] [address] [place] Nitrite Ql (U) Negative Normal Negative [facility] Comment on above: Order Comment: Speci men Type: URINE SPECIMENOrdering Facility: [facility] Address: [address] [place] [address] Performed By: #### 2 4356-8, 630-4 ####[facility][1] LABORATORYCLIA [id number] [address] pH (U) 5.0 [pH] Normal 5.0-8.0 [facility] Comment on above: Order Comment: Speci men Type: URINE SPECIMENOrdering Facility: [facility] Address: [address] [place] [address] Performed By: #### 2 4356-8, 630-4 ####[facility][1] LABORATORYCLIA [id number] [address] STATES [facility] Protein (U) [Mass/Vol] Trace Normal Trace , Negative [facility] Comment on above: Order Comment: Speci men Type: URINE SPECIMENOrdering Facility: [facility] Address: [address] [place] [address] Performed By: #### 2 4356-8, -4 ####[facility][1] LABORATORYCLIA [id number] [address] STATES [facility] RBC LM.HPF (Urine sed) [#/Area] 11-25 /HPF Abnormal 0-3 /HPF [facility] Comment on above: Order Comment: Speci men Type: URINE SPECIMENOrdering Facility: [facility] Address: [address] [place] [address] Performed By: #### 2 4356-8, 630-4 ####[facility][1] LABORATORYCLIA [id number] [address] [place] Specific gravity (U) [Rel density] 1.016 Normal 1.005-1.030 [facility] Comment on above: Order Comment: Speci men Type: URINE SPECIMENOrdering Facility: [facility] Address: [address] [place] [address] Performed By: #### 2 4356-8, 630-4 ####[facility][1] LABORATORYCLIA [id number] [address] OF [facility] Urobilinogen Ql (U) Normal Normal Normal [facility] Comment on above: Order Comment: Speci men Type: URINE SPECIMENOrdering Facility: [facility] Address: [address] [place], [place] [address] Performed By: #### 2 4356-8, 630-4 ####[facility][1] LABORATORYCLIA [id number] [address] [place] WBC LM.HPF (Urine sed) [#/Area] 11-25 /HPF Abnormal 0-5 /HPF [facility] Comment on above: Order Comment: Speci men Type: URINE SPECIMENOrdering Facility: [facility] Address: [address] [place] [address] Performed By: #### 2 4356-8, 630-4 ####[facility][1] LABORATORYCLIA [id number] [address] [place] Urinalysis, Completeon 11-23 RBC 5-10 SEEN Normal 0-5 [facility] Comment on above: Order Comment: CLEAN CATCH Performed By: #### L 400.0001 ####[facility] [address] [place], [address] WBC >100 SEEN Normal 0-5 [facility] Comment on above: Order Comment: CLEAN CATCH Performed By: #### L 400.0001 ####[facility] [address] [facility] [address] BACTERIA 0 SEEN Normal None Seen [facility] Comment on above: Order Comment: CLEAN CATCH Performed By: #### L 400.0001 ####[facility] [address] [place], [address] EPI,SQUAMOUS 0 SEEN Normal 0-5 [facility] Comment on above: Order Comment: CLEAN CATCH Performed By: #### L 400.0001 ####[facility] [address] [place], [address] Mucus Ql (Urine sed) 0 SEEN Normal [facility] Comment on above: Order Comment: CLEAN CATCH Performed By: #### L 400.0001 ####[facility] [address] [place], [address] Urine clarityOrdered By: Ayo Marie on 11-23-2024 Clarity (U) Clear Clear [facility] Urine color determinationOrd ered By: Juan Marie on 11-23-2024 Color (U) Yellow Yellow [facility] Urine cultureOrdered By: Ayo Marie on 11-23-2024 Bacteria identified Cx Nom (U) Staphylococcus epidermidis Abnormal [facility] Urine glucose detectionOrder ed By: Juan Marie on 11-23-2024 Glucose Ql (U) Normal mg/dl Normal [facility] Urine leukocyte esterase det ection by dipstickOrdered By: Juan Marie on 11-23-2024 Leukocyte esterase Test strip Ql (U) 25 /ul High Negative [facility] Urine pHOrdered By: Juan Marie on 11-23-2024 pH (U) 5.0 [pH] 5.0 - 8.0 [facility] Urine sediment bacteria coun t by microscopy (number/high power field)Ordered By: Juan Marie on 11-23-2024 Bacteria LM.HPF (Urine sed) [#/Area] 0 /[HPF] None Seen [facility] Urine specific gravity measu rementOrdered By: Juan Marie on 11-23-2024 Specific gravity (U) [Rel density] 1.010 1.002-1.030 [facility] Urine urobilinogen measureme ntOrdered By: Juan Marie on 11-23-2024 Urobilinogen Ql (U) Normal mg/dl Normal [facility] Venous Blood Gason 5 Blood Gas Type FAITH Normal [facility] Comment on above: Performed By: #### L 9000.0810 ####[facility] [address] [place], [place], [address] CO2 [Moles/Vol] 23 mmol/L Normal 23-33 [facility] Comment on above: Performed By: #### L 9000.0810 ####[facility] [address] [place], [address] HCO3 (Bld) [Moles/Vol] 22 mmol/L Normal 22-26 [facility] Comment on above: Performed By: #### L 9000.0810 ####[facility] [address] [place], [address] O2 Delivery Dev Not entered Normal [facility] Comment on above: Performed By: #### L 9000.0810 ####[facility] [address] [place], [address] SITE Not entered Normal [facility] Comment on above: Performed By: #### L 9000.0810 ####[facility] [address] [place], [address] VBG BE -4 mmol/L Low -1.0-3.5 [facility] Comment on above: Performed By: #### L 9000.0810 ####[facility] [address] [place], [address] VBG pCO2 40.0 mmHg Low 41-51 [facility] Comment on above: Performed By: #### L 9000.0810 ####[facility] [address] [place], [address] VBG pH 7.34 Normal 7.32-7.42 [facility] Comment on above: Performed By: #### L 9000.0810 ####[facility] [address] [place], [address] VBG PO2 37 mmHg Normal 25-40 [facility] Comment on above: Performed By: #### L 9000.0810 ####[facility] [address] [place], [address] VBG SO2 67 Normal 50-70 [facility] Comment on above: Performed By: #### L 9000.0810 ####[facility] [address] [place], [address] Venous blood base excess ahmet surementOrdered By: Juan Pay on 11-23-2024 Base excess Calc (BldV) [Moles/Vol] -4 mmol/L Low -1.0-3.5 [facility] Venous blood bicarbonate ahmet surementOrdered By: Juan Pay on 11-23-2024 HCO3 (Bld) [Moles/Vol] 22 mmol/L 22-26 [facility] Venous blood pH measurementO rdered By: Juan Pay on 11-23-2024 pH (BldV) 7.34 [pH] 7.32-7.42 [facility] Venous blood partial pressur e of carbon dioxide measurementOrdered By: Juan Pay on 11-23-2024 CO2 (BldV) [Partial pressure] 40.0 mm[Hg] Low 41-51 [facility] Venous blood partial pressur e of oxygen measurementOrdered By: Juan Pay on 11-23-2024 Oxygen (BldV) [Partial pressure] 37 mm[Hg] 25-40 [facility] White blood cell (WBC) count Ordered By: Juan Marie on 11-23-2024 WBC (Bld) [#/Vol] 8.4 10*3/uL 4.4-11.0 [facility] White blood cell countOrdere d By: Juan Pay on 11-23-2024 White blood cell count >100 SEEN /hpf 0-5 [facility] XR CHEST 1V FRONTALon 2024 XR CHEST 1V FRONTAL Normal [facility] CNPNon 11-22-2024 CNPN Telephone (HEMDERRICK) ABELARDO IVORY ([id number]) 1950 M Date Time Provider Department 11/22/24 LAKEISHA DAWKINS During your visit today, we recorded the following information about you: Abi Miramontes 11/22/2024 2:58 PM Signed Patient had cancelled appointments due to hospital stays and just wanting to reschedule cancelled appointment was not sure if anything additional was needed since recent hospital visits. Please advise patient. Berna Pacheco 11/23/2024 9:02 AM Signed Patient's daughter, Kary, calling to report issue with patient's picc line or dressing. PSS warm transferred patient to rn complex care, Matthew. Patient left VM. Wolf Crane RN 11/23/2024 9:40 AM Signed Spoke with amanda Reyes to come in today to assess PICC line and dressing. Nazanin Crane RN Call to Kary, no answer, left detailed message with above and asked that she call back in with a time to be scheduled. ANGELA Crum Kara, LPN 11/23/2024 10:46 AM Signed Pt presents to have PICC line looked at. Apt made for the port schedule. Hermila Morse LPN Allergies As of Date: 11/22/2024 (No Known Allergies) Date Reviewed: 11/09/2024 Reviewed by: Cristel Cantor RN - Fully Assessed Reason for Visit: Appointment [186] Patient Update [1234] Cmt: Picc Line Prescriptions as of 11/23/2024 - pantoprazole DR (PROTONIX) 40 mg tablet [...] 5 mg by mouth once daily. - arwrlrmvjwg-pjvtpeowd-p ilanter (TRELEGY ELLIPTA) 200-62.5-25 mcg inhalation powder [...] 12 hours. Problem List As Of Date 11/22/2024 Noted Resolved CONTUSION OF FOREARM [S50.10XA] 08/09/2005 [...] [J4*11/10/2024 Dysuria [R30.0] 11/10/2024 Encounter Status:Closed by HERMILA MORSE on 11/23/24 [facility] Absolute lymphocyte countOrd ered By: Pradip Pichardo on 11-21-2024 Lymphocytes Auto (Unsp spec) [#/Vol] 0.95 10*3/uL 0.83-4.51 [facility] Automated lymphocyte count a s percentage of total leukocytesOrdered By: Pradip Pichardo on 11-21-2024 Lymphocytes/100 WBC Auto (Unsp spec) 15.8 % Low 19-41 [facility] Basophil percentageOrdered B y: Pradip Pichardo on 11-21-2024 Basophils/100 WBC (Bld) 0.7 % 0-1 [facility] CBC W/Diff, Automatedon 11-07 Absolute Lymph 0.95 X10 3/uL Normal 0.83-4.51 [facility] Comment on above: Performed By: #### L 100.0100 ####[facility] [address] [place], [address] Absolute Neut 4.1 X10 3/uL Normal 2.0-7.7 [facility] Comment on above: Performed By: #### L 100.0100 ####[facility] [address] [place], [address] Basophils/100 WBC (Bld) 0.7 % Normal 0-1 [facility] Comment on above: Performed By: #### L 100.0100 ####[facility] [address] [place], [address] Eosinophils/100 WBC (Bld) 2.7 % Normal 0-5 [facility] Comment on above: Performed By: #### L 100.0100 ####[facility] [address] [place], [address] Erythrocyte distribution width (RBC) [Ratio] 15.6 % High 11.6-14.6 [facility] Comment on above: Performed By: #### L 100.0100 ####[facility] [address] [place], [address] Hematocrit (Bld) [Volume fraction] 27.0 % Low 40-54 [facility] Comment on above: Performed By: #### L 100.0100 ####[facility] [address] [place], [address] Hemoglobin (Bld) [Mass/Vol] 9.2 g/dL Low 13.0-16.5 [facility] Comment on above: Performed By: #### L 100.0100 ####[facility] [address] [place], [address] IG% 0.800 Normal 0.0-0.9 [facility] Comment on above: Result Comment: IG% - Immature Granulocytes (promyelocytes, myelocytes andmetamyelocytes) > 1% indicates that a LEFT SHIFT is Present. Performed By: #### L 100.0100 ####[facility] [address] [place], [address] Lymphocytes/100 WBC (Bld) 15.8 % Low 19-41 [facility] Comment on above: Performed By: #### L 100.0100 ####[facility] [address] [place], [address] MCH (RBC) [Entitic mass] 31.9 pg Normal 27.0-32.0 [facility] Comment on above: Performed By: #### L 100.0100 ####[facility] [address] [place], [address] MCHC (RBC) [Mass/Vol] 34.1 g/dL Normal 32-36 [facility] Comment on above: Performed By: #### L 100.0100 ####[facility] [address] [place], [address] MCV (RBC) [Entitic vol] 93.8 fL Normal 80-94 [facility] Comment on above: Performed By: #### L 100.0100 ####[facility] [address] [place], [address] Monocytes/100 WBC (Bld) 12.0 % High 0-10 [facility] Comment on above: Performed By: #### L 100.0100 ####[facility] [address] [place], [address] Neutrophils/100 WBC (Bld) 68.0 % Normal 47-70 [facility] Comment on above: Performed By: #### L 100.0100 ####[facility] [address] [place], [address] Nucleated RBC (Bld) [#/Vol] 0 10*3/uL Normal 0-5 [facility] Comment on above: Performed By: #### L 100.0100 ####[facility] [address] [place], [address] Platelet mean volume (Bld) [Entitic vol] 9.2 fL Normal 6.2-12.0 [facility] Comment on above: Performed By: #### L 100.0100 ####[facility] [address] [place], [address] Platelets (Bld) [#/Vol] 104 10*3/uL Low 150-450 [facility] Comment on above: Performed By: #### L 100.0100 ####[facility] [address] [place], [address] RBC (Bld) [#/Vol] 2.88 10*6/uL Low 4.6-6.2 [facility] Comment on above: Performed By: #### L 100.0100 ####[facility] [address] [place], [address] RDW SD 50.7 fl High 35.1-43.9 [facility] Comment on above: Performed By: #### L 100.0100 ####[facility] [address] [place], [address] WBC (Bld) [#/Vol] 6.0 10*3/uL Normal 4.4-11.0 [facility] Comment on above: Performed By: #### L 100.0100 ####[facility] [address] [place], [address] Discharge Instructionon 11-07 Discharge Instruction Normal [facility] Eosinophil percentageOrdered By: Pradip Pichardo on 11-21-2024 Eosinophils/100 WBC (Bld) 2.7 % 0-5 [facility] Erythrocyte distribution wid th ratioOrdered By: Pradip Pichardo on 11-21-2024 Erythrocyte distribution width (RBC) [Ratio] 15.6 % High 11.6-14.6 [facility] Erythrocyte distribution wid th standard deviationOrdered By: Pradip Pichardo on 11-21-2024 Erythrocyte distribution width (RBC) [Ratio] 50.7 fl High 35.1-43.9 [facility] Hematocrit Auto (Bld) [Volum e fraction]Ordered By: Pradip Pichardo on 11-21-2024 Hematocrit (Bld) [Volume fraction] 27.0 % Low 40-54 [facility] Hemoglobin measurementOrdere d By: Pradip Pichardo on 11-21-2024 Hemoglobin (Bld) [Mass/Vol] 9.2 g/dL Low 13.0-16.5 [facility] Immature granulocytes/100 WB C Auto (Bld)Ordered By: Pradip Pichardo on 11-21-2024 Immature granulocytes/100 WBC (Bld) 0.800 % 0.0-0.9 [facility] MCV (mean corpuscular volume ) determinationOrdered By: Pradip Pichardo on 11-21-2024 MCV (RBC) [Entitic vol] 93.8 fL 80-94 [facility] Mean corpuscular hemoglobin (MCH) determinationOrdered By: Pradip Pichardo on 11-21-2024 MCH (RBC) [Entitic mass] 31.9 pg 27.0-32.0 [facility] Monocyte percentageOrdered B y: Pradip Pichardo on 11-21-2024 Monocytes/100 WBC (Bld) 12.0 % High 0-10 [facility] Neutrophil percentageOrdered By: Pradip Pichardo on 11-21-2024 Neutrophils/100 WBC (Bld) 68.0 % 47-70 [facility] Platelet countOrdered By: Sushant Pichardo on 11-21-2024 Platelets (Bld) [#/Vol] 104 10*3/uL Low 150-450 [facility] RBC Auto (Bld) [#/Vol]Ordere d By: Pradip Pichardo on 11-21-2024 RBC (Bld) [#/Vol] 2.88 10*6/uL Low 4.6-6.2 [facility] White blood cell (WBC) count Ordered By: Pradip Pichardo on 11-21-2024 WBC (Bld) [#/Vol] 6.0 10*3/uL 4.4-11.0 [facility] HH, Hemoglobin AND Hematocri ton 11-20-2024 Hematocrit (Bld) [Volume fraction] 20.8 % Low 40-54 [facility] Comment on above: Performed By: #### L 100.0600 ####[facility] [address] [place], [address] Hemoglobin (Bld) [Mass/Vol] 6.8 g/dL Low 13.0-16.5 [facility] Comment on above: Performed By: #### L 100.0600 ####[facility] [address] [place], [address] Anion gap in Serum or Plasma Ordered By: Chet Valdivia on 11-19-2024 Anion gap [Moles/Vol] 8 mmol/L - [facility] BUN/creatinine ratioOrdered By: Chet Valdivia on 11-19-2024 Urea nitrogen/Creatinine [Mass ratio] 39.7 mg/mg High 11-26 [facility] Basic Metabolic Profile (BMP )on 11-19-2024 BUN/CRE 39.7 RATIO High 11-26 [facility] Comment on above: Performed By: #### L 500.2500, L100.0500 ####[facility] [address] [place], [address] Calcium [Mass/Vol] 8.0 mg/dL Normal 7.6-11.0 [facility] Comment on above: Performed By: #### L 500.2500, L100.0500 ####[facility] [address] [place], [address] Chloride [Moles/Vol] 110 mmol/L High 98-108 [facility] Comment on above: Performed By: #### L 500.2500, L100.0500 ####[facility] [address] [place], [address] CO2 [Moles/Vol] 21.7 mmol/L Normal 21.0-32.0 [facility] Comment on above: Performed By: #### L 500.2500, L100.0500 ####[facility] [address] [place], [address] Creatinine [Mass/Vol] 1.59 mg/dL High 0.70-1.20 [facility] Comment on above: Performed By: #### L 500.2500, L100.0500 ####[facility] [address] [place], [address] ECRCL 36.32 ml/min Low 50-250 [facility] Comment on above: Performed By: #### L 500.2500, L100.0500 ####[facility] [address] [place], [address] GAP 8 Normal 5-15 [facility] Comment on above: Performed By: #### L 500.2500, L100.0500 ####[facility] [address] [place], [address] GFR/1.73 sq M.predicted among non-blacks MDRD (S/P/Bld) [Vol rate/Area] 45 mL/min/{1.73_m2} Low >60 [facility] Comment on above: Result Comment: mL/m in/1.73m2 CKD-EPI Creatinine Equation (2020) Performed By: #### L 500.2500, L100.0500 ####[facility] [address] [place], [address] Glucose [Mass/Vol] 111 mg/dL High 70-99 [facility] Comment on above: Performed By: #### L 500.2500, L100.0500 ####[facility] [address] [place], [address] Potassium [Moles/Vol] 4.8 mmol/L Normal 3.3-5.1 [facility] Comment on above: Performed By: #### L 500.2500, L100.0500 ####[facility] [address] [place], [address] Sodium [Moles/Vol] 139 mmol/L Normal 133-145 [facility] Comment on above: Performed By: #### L 500.2500, L100.0500 ####[facility] [address] [place], [address] Urea nitrogen [Mass/Vol] 63 mg/dL High 4-19 [facility] Comment on above: Performed By: #### L 500.2500, L100.0500 ####[facility] [address] [place], [address] CBC-Complete Blood Cnt No Di ffon 11-19-2024 Erythrocyte distribution width (RBC) [Ratio] 16.0 % High 11.6-14.6 [facility] Comment on above: Performed By: #### L 500.2500, L100.0500 ####[facility] [address] [place], [address] Hematocrit (Bld) [Volume fraction] 21.9 % Low 40-54 [facility] Comment on above: Performed By: #### L 500.2500, L100.0500 ####[facility] [address] [place], [address] Hemoglobin (Bld) [Mass/Vol] 7.1 g/dL Low 13.0-16.5 [facility] Comment on above: Performed By: #### L 500.2500, L100.0500 ####[facility] [address] [place], [address] MCH (RBC) [Entitic mass] 30.3 pg Normal 27.0-32.0 [facility] Comment on above: Performed By: #### L 500.2500, L100.0500 ####[facility] [address] [place], [address] MCHC (RBC) [Mass/Vol] 32.4 g/dL Normal 32-36 [facility] Comment on above: Performed By: #### L 500.2500, L100.0500 ####[facility] [address] [place], [address] MCV (RBC) [Entitic vol] 93.6 fL Normal 80-94 [facility] Comment on above: Performed By: #### L 500.2500, L100.0500 ####[facility] [address] [place], [address] Platelet mean volume (Bld) [Entitic vol] 9.0 fL Normal 6.2-12.0 [facility] Comment on above: Performed By: #### L 500.2500, L100.0500 ####[facility] [address] [place], [address] Platelets (Bld) [#/Vol] 117 10*3/uL Low 150-450 [facility] Comment on above: Performed By: #### L 500.2500, L100.0500 ####[facility] [address] [place], [address] RBC (Bld) [#/Vol] 2.34 10*6/uL Low 4.6-6.2 [facility] Comment on above: Performed By: #### L 500.2500, L100.0500 ####[facility] [address] [place], [address] RDW SD 53.4 fl High 35.1-43.9 [facility] Comment on above: Performed By: #### L 500.2500, L100.0500 ####[facility] [address] [place], [address] WBC (Bld) [#/Vol] 6.0 10*3/uL Normal 4.4-11.0 [facility] Comment on above: Performed By: #### L 500.2500, L100.0500 ####[facility] [address] [place], [address] Ale 11-19-2024 OJN Telephone (HEMAWS) ALEJANDRAABELARDO ([id number]) 1950 M Date Time Provider Department 11/19/24 LAKEISHA DAWKINS During your visit today, we recorded the following information about you: Chelsea Gutierres 11/19/2024 8:26 AM Signed Daughter called and cancelled Dr. Banks appointment for today. Advised patient is in the hospital and waiting for transfer to [facility] Matthew Cueto RN 11/19/2024 9:29 AM Signed Thank you. Added to hospital list. ANGELA Chen Amber, RN 11/20/2024 1:11 PM Addendum Per [facility], transfer was cancelled. Per [facility] records, patient was admitted for a recurrent [...] okay with staying here at the hospital. " Matthew Gu RN Allergies As of Date: [...] 5 mg by mouth once daily. - iijkkhqbymk-ohrtbzlzi-c ilanter (TRELEGY ELLIPTA) 200-62.5-25 mcg inhalation powder [...] Status:Closed by MATTHEW GU on 11/19/24 [facility] Carbon dioxide, total [Moles /volume] in Central venous bloodOrdered By: Chet Valdivia on 11-19-2024 CO2 [Moles/Vol] 21.7 mmol/L 21.0-32.0 [facility] Chloride assayOrdered By: Arvind Valdivia on 11-19-2024 Chloride [Moles/Vol] 110 mmol/L High 98-108 [facility] EGD Reporton 11-19-2024 EGD Report Normal [facility] Glomerular filtration rate ( GFR) estimation/1.73 sq m using serum, plasma, or whole bOrdered By: Chet Valdivia on 11-19-2024 GFR/1.73 sq M.predicted among non-blacks MDRD (S/P/Bld) [Vol rate/Area] 45 mL/min/{1.73_m2} Low >60 [facility] MR/CON.PCM.GIon 11-19-2024 MR/CON.PCM.GI Normal [facility] MR/OP.PROVATon 11-19-2024 MR/OP.PROVAT Normal [facility] MR/POSTOP.ANEon 11-19-2024 MR/POSTOP.ANE Normal [facility] MR/XOZIQNIO1ss 11-19-2024 MR/POSTOPAN2 Normal [facility] Potassium measurement (mass/ volume)Ordered By: Chet Valdivia on 11-19-2024 Potassium (Unsp spec) [Mass/Vol] 4.8 mmol/L 3.3-5.1 [facility] Serum creatinine measurement (mass/volume)Ordered By: Chet Valdivia on 11-19-2024 Creatinine [Mass/Vol] 1.59 mg/dL High 0.70-1.20 [facility] Serum glucose measurement (m ass/volume)Ordered By: Chet Valdivia on 11-19-2024 Glucose [Mass/Vol] 111 mg/dL High 70-99 [facility] Serum or plasma calcium jamel urement (mass/volume)Ordered By: Chet Valdivia on 11-19-2024 Calcium [Mass/Vol] 8.0 mg/dL 7.6-11.0 [facility] Serum or plasma urea nitroge n measurement (mass/volume)Ordered By: Chet Valdivia on 11-19-2024 Urea nitrogen [Mass/Vol] 63 mg/dL High 4-19 [facility] Sodium levelOrdered By: Cayetano Valdivia on 11-19-2024 Sodium [Moles/Vol] 139 mmol/L 133-145 [facility] Urine Cultureon 11-19-2024 URC Culture exhibits no growth. [facility] Comment on above: Performed By: #### M 100.4515 ####[facility] [address] [place], [address] ABORh Blood Type, Patienton 11-18-2024 ABO and Rh group Nom (Bld) Blood group A Rh(D) positive [facility] Comment on above: Order Comment: A Performed By: #### M 100.7900, BtABORH, BTS, L300.4310, L300.3900, BLRBC2 ####[facility] [address] [place], [address] Activated partial thrombopla stin time (aPTT) in platelet poor plasma by coagulation aOrdered By: Jeffery Turpin on 11-18-2024 aPTT Coag (PPP) [Time] 23.8 s Low 24.1-36.2 [facility] ARJRU0xc 11-18-2024 LRBC2 Normal Neg [facility] Comment on above: Result Comment: [id number] OP LRBC2 PRSMD TRFSD 11/18/24 0404 Performed By: #### M 100.7900, BtABORH, BTS, L300.4310, L300.3900, BLRBC2 ####[facility] [address] [place], [address] BRCon 11-18-2024 RC Normal [facility] Comment on above: Result Comment: [id number] AP RC TRANSFUSED 11/20/24 [id number] AP RC TRANSFUSED 11/20/24 1621 Performed By: #### B RC ####[facility] [address] [place], [address] Result Comment: [id number] AP RC TRANSFUSED 11/18/24 [id number] AP RC TRANSFUSED 11/18/24 0344 Result Comment: [id number] AN RC TRANSFUSED 11/19/24 1320 Basic Metabolic Profile (BMP )on 11-18-2024 BUN/CRE 38.9 RATIO High 11-26 [facility] Comment on above: Performed By: #### L 100.0100, L500.2500 ####[facility] [address] [place], [address] Calcium [Mass/Vol] 8.0 mg/dL Normal 7.6-11.0 [facility] Comment on above: Performed By: #### L 100.0100, L500.2500 ####[facility] [address] [place], [address] Chloride [Moles/Vol] 109 mmol/L High 98-108 [facility] Comment on above: Performed By: #### L 100.0100, L500.2500 ####[facility] [address] [place], [address] CO2 [Moles/Vol] 22.1 mmol/L Normal 21.0-32.0 [facility] Comment on above: Performed By: #### L 100.0100, L500.2500 ####[facility] [address] [place], [address] Creatinine [Mass/Vol] 1.60 mg/dL High 0.70-1.20 [facility] Comment on above: Performed By: #### L 100.0100, L500.2500 ####[facility] [address] [place], [address] ECRCL 36.55 ml/min Low 50-250 [facility] Comment on above: Performed By: #### L 100.0100, L500.2500 ####[facility] [address] [place], [address] GAP 8 Normal 5-15 [facility] Comment on above: Performed By: #### L 100.0100, L500.2500 ####[facility] [address] [place], [address] GFR/1.73 sq M.predicted among non-blacks MDRD (S/P/Bld) [Vol rate/Area] 45 mL/min/{1.73_m2} Low >60 [facility] Comment on above: Result Comment: mL/m in/1.73m2 CKD-EPI Creatinine Equation (2020) Performed By: #### L 100.0100, L500.2500 ####[facility] [address] [place], [address] Glucose [Mass/Vol] 112 mg/dL High 70-99 [facility] Comment on above: Performed By: #### L 100.0100, L500.2500 ####[facility] [address] [place], [address] Potassium [Moles/Vol] 4.9 mmol/L Normal 3.3-5.1 [facility] Comment on above: Performed By: #### L 100.0100, L500.2500 ####[facility] [address] [place], [address] Sodium [Moles/Vol] 139 mmol/L Normal 133-145 [facility] Comment on above: Performed By: #### L 100.0100, L500.2500 ####[facility] [address] [place], [address] Urea nitrogen [Mass/Vol] 62 mg/dL High 4-19 [facility] Comment on above: Performed By: #### L 100.0100, L500.2500 ####[facility] [address] [place], [address] BUN/CRE 34.2 RATIO High 10-20 [facility] Comment on above: Performed By: #### L 503.6005, L100.0100, L500.2500 ####[facility] [address] [place], [address] Calcium [Mass/Vol] 8.4 mg/dL Normal 7.6-11.0 [facility] Comment on above: Performed By: #### L 503.6005, L100.0100, L500.2500 ####[facility] [address] [place], [address] Chloride [Moles/Vol] 104 mmol/L Normal 98-108 [facility] Comment on above: Performed By: #### L 503.6005, L100.0100, L500.2500 ####[facility] [address] [place], [address] CO2 [Moles/Vol] 21.7 mmol/L Normal 21.0-32.0 [facility] Comment on above: Performed By: #### L 503.6005, L100.0100, L500.2500 ####[facility] [address] [place], [address] Creatinine [Mass/Vol] 1.89 mg/dL High 0.70-1.20 [facility] Comment on above: Performed By: #### L 503.6005, L100.0100, L500.2500 ####[facility] [address] [place], [address] ECRCL 30.94 ml/min Low 50-250 [facility] Comment on above: Performed By: #### L 503.6005, L100.0100, L500.2500 ####[facility] [address] [place], [address] GAP 13 Normal 5-15 [facility] Comment on above: Performed By: #### L 503.6005, L100.0100, L500.2500 ####[facility] [address] [place], [address] GFR/1.73 sq M.predicted among non-blacks MDRD (S/P/Bld) [Vol rate/Area] 37 mL/min/{1.73_m2} Low >60 [facility] Comment on above: Result Comment: mL/m in/1.73m2 CKD-EPI Creatinine Equation (2020) Performed By: #### L 503.6005, L100.0100, L500.2500 ####[facility] [address] [place], [address] Glucose [Mass/Vol] 182 mg/dL High 70-99 [facility] Comment on above: Performed By: #### L 503.6005, L100.0100, L500.2500 ####[facility] [address] [place], [address] Potassium [Moles/Vol] 5.3 mmol/L High 3.3-5.1 [facility] Comment on above: Performed By: #### L 503.6005, L100.0100, L500.2500 ####[facility] [address] [place], [address] Sodium [Moles/Vol] 138 mmol/L Normal 133-145 [facility] Comment on above: Performed By: #### L 503.6005, L100.0100, L500.2500 ####[facility] [address] [place], [address] Urea nitrogen [Mass/Vol] 65 mg/dL High 4-19 [facility] Comment on above: Performed By: #### L 503.6005, L100.0100, L500.2500 ####[facility] [address] [place], [address] Bilirubin Test strip Ql (U)O rdered By: Jeffery Turpin on 11-18-2024 Bilirubin Ql (U) 1 mg/dL High Negative [facility] CBC W/Diff, Automatedon 11-07 Absolute Lymph 0.93 X10 3/uL Normal 0.83-4.51 [facility] Comment on above: Performed By: #### L 100.0100, L500.2500 ####[facility] [address] [place], [address] Absolute Neut 6.3 X10 3/uL Normal 2.0-7.7 [facility] Comment on above: Performed By: #### L 100.0100, L500.2500 ####[facility] [address] [place], [address] Basophils/100 WBC (Bld) 0.5 % Normal 0-1 [facility] Comment on above: Performed By: #### L 100.0100, L500.2500 ####[facility] [address] [place], [address] Eosinophils/100 WBC (Bld) 0.7 % Normal 0-5 [facility] Comment on above: Performed By: #### L 100.0100, L500.2500 ####[facility] [address] [place], [address] Erythrocyte distribution width (RBC) [Ratio] 16.1 % High 11.6-14.6 [facility] Comment on above: Performed By: #### L 100.0100, L500.2500 ####[facility] [address] [place], [address] Hematocrit (Bld) [Volume fraction] 26.3 % Low 40-54 [facility] Comment on above: Performed By: #### L 100.0100, L500.2500 ####[facility] [address] [place], [address] Hemoglobin (Bld) [Mass/Vol] 8.7 g/dL Low 13.0-16.5 [facility] Comment on above: Performed By: #### L 100.0100, L500.2500 ####[facility] [address] [place], [address] IG% 0.600 Normal 0.0-0.9 [facility] Comment on above: Result Comment: IG% - Immature Granulocytes (promyelocytes, myelocytes andmetamyelocytes) > 1% indicates that a LEFT SHIFT is Present. Performed By: #### L 100.0100, L500.2500 ####[facility] [address] [place], [address] Lymphocytes/100 WBC (Bld) 11.4 % Low 19-41 [facility] Comment on above: Performed By: #### L 100.0100, L500.2500 ####[facility] [address] [place], [address] MCH (RBC) [Entitic mass] 31.0 pg Normal 27.0-32.0 [facility] Comment on above: Performed By: #### L 100.0100, L500.2500 ####[facility] [address] [place], [address] MCHC (RBC) [Mass/Vol] 33.1 g/dL Normal 32-36 [facility] Comment on above: Performed By: #### L 100.0100, L500.2500 ####[facility] [address] [place], [address] MCV (RBC) [Entitic vol] 93.6 fL Normal 80-94 [facility] Comment on above: Performed By: #### L 100.0100, L500.2500 ####[facility] [address] [place], [address] Monocytes/100 WBC (Bld) 9.4 % Normal 0-10 [facility] Comment on above: Performed By: #### L 100.0100, L500.2500 ####[facility] [address] [place], [address] Neutrophils/100 WBC (Bld) 77.4 % High 47-70 [facility] Comment on above: Performed By: #### L 100.0100, L500.2500 ####[facility] [address] [place], [address] Nucleated RBC (Bld) [#/Vol] 0 10*3/uL Normal 0-5 [facility] Comment on above: Performed By: #### L 100.0100, L500.2500 ####[facility] [address] [place], [address] Platelet mean volume (Bld) [Entitic vol] 8.8 fL Normal 6.2-12.0 [facility] Comment on above: Performed By: #### L 100.0100, L500.2500 ####[facility] [address] [place], [address] Platelets (Bld) [#/Vol] 134 10*3/uL Low 150-450 [facility] Comment on above: Performed By: #### L 100.0100, L500.2500 ####[facility] [address] [place], [address] RBC (Bld) [#/Vol] 2.81 10*6/uL Low 4.6-6.2 [facility] Comment on above: Performed By: #### L 100.0100, L500.2500 ####[facility] [address] [place], [address] RDW SD 53.8 fl High 35.1-43.9 [facility] Comment on above: Performed By: #### L 100.0100, L500.2500 ####[facility] [address] [place], [address] WBC (Bld) [#/Vol] 8.2 10*3/uL Normal 4.4-11.0 [facility] Comment on above: Performed By: #### L 100.0100, L500.2500 ####[facility] [address] [place], [address] Hemoglobin (Bld) [Mass/Vol] 6.0 g/dL Invalid Interpretation Code 13.0-16.5 [facility] Comment on above: Result Comment: CRIT ICAL VALUE CALLED TO OPRFNO13/12/25 021 Sherif Kaplan.RESULTS READ BACK BY SAME. Performed By: #### L 503.6005, L100.0100, L500.2500 ####[facility] [address] [place], [address] Absolute Lymph 1.56 X10 3/uL Normal 0.83-4.51 [facility] Comment on above: Performed By: #### L 503.6005, L100.0100, L500.2500 ####[facility] [address] [place], [address] Absolute Neut 8.2 X10 3/uL High 2.0-7.7 [facility] Comment on above: Performed By: #### L 503.6005, L100.0100, L500.2500 ####[facility] [address] [place], [address] Basophils/100 WBC (Bld) 0.4 % Normal 0-1 [facility] Comment on above: Performed By: #### L 503.6005, L100.0100, L500.2500 ####[facility] [address] [place], [address] Eosinophils/100 WBC (Bld) 0.8 % Normal 0-5 [facility] Comment on above: Performed By: #### L 503.6005, L100.0100, L500.2500 ####[facility] [address] [place], [address] Erythrocyte distribution width (RBC) [Ratio] 16.4 % High 11.6-14.6 [facility] Comment on above: Performed By: #### L 503.6005, L100.0100, L500.2500 ####[facility] [address] [place], [address] Hematocrit (Bld) [Volume fraction] 19.5 % Low 40-54 [facility] Comment on above: Performed By: #### L 503.6005, L100.0100, L500.2500 ####[facility] [address] [place], [address] IG% 0.800 Normal 0.0-0.9 [facility] Comment on above: Result Comment: IG% - Immature Granulocytes (promyelocytes, myelocytes andmetamyelocytes) > 1% indicates that a LEFT SHIFT is Present. Performed By: #### L 503.6005, L100.0100, L500.2500 ####[facility] [address] [place], [address] Lymphocytes/100 WBC (Bld) 13.9 % Low 19-41 [facility] Comment on above: Performed By: #### L 503.6005, L100.0100, L500.2500 ####[facility] [address] [place], [address] MCH (RBC) [Entitic mass] 30.6 pg Normal 27.0-32.0 [facility] Comment on above: Performed By: #### L 503.6005, L100.0100, L500.2500 ####[facility] [address] [place], [address] MCHC (RBC) [Mass/Vol] 30.8 g/dL Low 32-36 [facility] Comment on above: Performed By: #### L 503.6005, L100.0100, L500.2500 ####[facility] [address] [place], [address] MCV (RBC) [Entitic vol] 99.5 fL High 80-94 [facility] Comment on above: Performed By: #### L 503.6005, L100.0100, L500.2500 ####[facility] [address] [place], [address] Monocytes/100 WBC (Bld) 10.9 % High 0-10 [facility] Comment on above: Performed By: #### L 503.6005, L100.0100, L500.2500 ####[facility] [address] [place], [address] Neutrophils/100 WBC (Bld) 73.2 % High 47-70 [facility] Comment on above: Performed By: #### L 503.6005, L100.0100, L500.2500 ####[facility] [address] [place], [address] Nucleated RBC (Bld) [#/Vol] 0 10*3/uL Normal 0-5 [facility] Comment on above: Performed By: #### L 503.6005, L100.0100, L500.2500 ####[facility] [address] [place], [address] Platelet mean volume (Bld) [Entitic vol] 9.0 fL Normal 6.2-12.0 [facility] Comment on above: Performed By: #### L 503.6005, L100.0100, L500.2500 ####[facility] [address] [place], [address] Platelets (Bld) [#/Vol] 239 10*3/uL Normal 150-450 [facility] Comment on above: Performed By: #### L 503.6005, L100.0100, L500.2500 ####[facility] [address] [place], [address] RBC (Bld) [#/Vol] 1.96 10*6/uL Low 4.6-6.2 [facility] Comment on above: Performed By: #### L 503.6005, L100.0100, L500.2500 ####[facility] [address] [place], [address] RDW SD 59.5 fl High 35.1-43.9 [facility] Comment on above: Performed By: #### L 503.6005, L100.0100, L500.2500 ####[facility] [address] [place], [address] WBC (Bld) [#/Vol] 11.2 10*3/uL High 4.4-11.0 [facility] Comment on above: Performed By: #### L 503.6005, L100.0100, L500.2500 ####[facility] [address] [place], [address] CTA Abd/Pelvis W/WO Contrast on 11-18-2024 CTA Abd/Pelvis W/WO Contrast Normal [facility] Chest 1 View (Portable)on Chest 1 View (Portable) Normal [facility] Emergency Department Summary on 11-18-2024 Emergency Department Summary Normal [facility] H AND P Exam - Hospitaliston 11-18-2024 H&P Exam - Hospitalist Normal [facility] Hyaline casts LM.LPF (Urine sed) [#/Area]Ordered By: Jeffery Turpin on 11-18-2024 Hyaline casts (Urine sed) [#/Area] 0 /[LPF] 0-5 [facility] Ketones Test strip Ql (U)Ord ered By: Jeffery Turpin on 11-18-2024 Ketones Ql (U) Negative Negative [facility] Lactic Acidon 11-18-2024 Lactate [Moles/Vol] mmol/L Normal 0.0-2.0 [facility] Comment on above: Performed By: #### L 503.6005 ####[facility] [address] [place], [address] Lactate [Moles/Vol] 1.1 mmol/L Normal 0.0-2.0 [facility] Comment on above: Order Comment: Y Performed By: #### L 503.6005 ####[facility] [address] [place], [address] Lactate [Moles/Vol] 3.7 mmol/L Invalid Interpretation Code 0.0-2.0 [facility] Comment on above: Order Comment: Y Result Comment: Crit ical Result(s) Called at: 0309 by:??PRABHAKAR HAVEN TO BETSHEesults read back by same. Performed By: #### L 503.6005, L100.0100, L500.2500 ####[facility] [address] [place], [address] Mucus LM Ql (Urine sed)Order ed By: Jeffery Turpin on 11-18-2024 Mucus Ql (Urine sed) 0 SEEN /hpf [facility] Nitrite Test strip Ql (U)Ord ered By: Jeffery Turpin on 11-18-2024 Nitrite Ql (U) Positive High Negative [facility] Partial Thromboplast Timeon 11-18-2024 aPTT Coag (Bld) [Time] 23.8 s Low 24.1-36.2 [facility] Comment on above: Performed By: #### M 100.7900, BtABORH, BTS, L300.4310, L300.3900, BLRBC2 ####[facility] [address] [place], [address] Protein Test strip Ql (U)Ord ered By: Jeffery Turpin on 11-18-2024 Protein Ql (U) 100 mg/dl High Negative [facility] Prothrombin Time w/INRon INR Coag (PPP) [Relative time] 1.0 {INR} Normal [facility] Comment on above: Performed By: #### M 100.7900, BtABORH, BTS, L300.4310, L300.3900, BLRBC2 ####[facility] [address] [place], [address] PT Coag (PPP) [Time] 13.8 s Normal 11.7-14.9 [facility] Comment on above: Performed By: #### M 100.7900, BtABORH, BTS, L300.4310, L300.3900, BLRBC2 ####[facility] [address] [place], [address] Prothrombin timeOrdered By: Jeffery Turpin on 11-18-2024 PT Coag (PPP) [Time] 13.8 s 11.7-14.9 [facility] Squamous epithelial cells de tection in urine sediment by light microscopyOrdered By: Jeffery Turpin on 11-18-2024 Epithelial cells.squamous LM Ql (Urine sed) 0 SEEN /hpf 0-5 [facility] Stool Occult Blood iFOBon STOB Positive Normal [facility] Comment on above: Performed By: #### M 100.7900, BtABORH, BTS, L300.4310, L300.3900, BLRBC2 ####[facility] [address] [place], [address] Stool gastrointestinal hemog lobin detection by immunologic methodOrdered By: Jeffery Turpin on 11-18-2024 Lower GI hemoglobin IA Ql (Stl) Positive Abnormal [facility] Type AND Screenon 11-18-2024 Ab SCREEN GEL Negative Normal [facility] Comment on above: Order Comment: A Performed By: #### M 100.7900, BtABORH, BTS, L300.4310, L300.3900, BLRBC2 ####[facility] [address] [place], [address] Urinalysis, Completeon 11-18 BACTERIA 1+ /hpf Normal None Seen [facility] Comment on above: Order Comment: CLEAN CATCH Performed By: #### L 400.0001 ####[facility] [address] [place], [address] CAST,HYALINE 0-5 SEEN Normal 0-5 [facility] Comment on above: Order Comment: CLEAN CATCH Performed By: #### L 400.0001 ####[facility] [address] [place], [address] WBC 10-25 SEEN Normal 0-5 [facility] Comment on above: Order Comment: CLEAN CATCH Performed By: #### L 400.0001 ####[facility] [address] [place], [address] EPI,SQUAMOUS 0 SEEN Normal 0-5 [facility] Comment on above: Order Comment: CLEAN CATCH Performed By: #### L 400.0001 ####[facility] [address] [place], [address] Mucus Ql (Urine sed) 0 SEEN Normal [facility] Comment on above: Order Comment: CLEAN CATCH Performed By: #### L 400.0001 ####[facility] [address] [place], [address] RBC 0 SEEN Normal 0-5 [facility] Comment on above: Order Comment: CLEAN CATCH Performed By: #### L 400.0001 ####[facility] [address] [place], [place], [id number] Urine clarityOrdered By: Kevin Turpin on 11-18-2024 Clarity (U) Clear Clear [facility] Urine color determinationOrd ered By: Jeffery Turpin on 11-18-2024 Color (U) Yellow Yellow [facility] Urine cultureOrdered By: Kevin Turpin on 11-18-2024 Bacteria identified Cx Nom (U) Culture exhibits no growth. [facility] Urine glucose detectionOrder ed By: Jeffery Turpin on 11-18-2024 Glucose Ql (U) Normal mg/dl Normal [facility] Urine leukocyte esterase det ection by dipstickOrdered By: Jeffery Turpin on 11-18-2024 Leukocyte esterase Test strip Ql (U) 25 /ul High Negative [facility] Urine pHOrdered By: Jeffery de la torre on 11-18-2024 pH (U) 6.0 [pH] 5.0 - 8.0 [facility] Urine sediment bacteria coun t by microscopy (number/high power field)Ordered By: Jeffery Turpin on 11-18-2024 Bacteria LM.HPF (Urine sed) [#/Area] 1 /[HPF] None Seen [facility] Urine specific gravity measu rementOrdered By: Jeffery Turpin on 11-18-2024 Specific gravity (U) [Rel density] 1.010 1.002-1.030 [facility] Urine urobilinogen measureme ntOrdered By: Jeffery Turpin on 11-18-2024 Urobilinogen Ql (U) 1 mg/dl High Normal [facility] White blood cell countOrdere d By: Jeffery Dyana on 11-18-2024 White blood cell count 10-25 SEEN /hpf 0-5 [facility] Urine Cultureon 11-16-2024 URC Order Date: 11/15/24 Order Info: 630-4 - CUUR Culture exhibits no growth. Normal [facility] Comment on above: Performed By: #### M 100.2200 ####[facility] [address] [place], [address] Absolute lymphocyte countOrd ered By: Padmini Carrasco on 11-15-2024 Lymphocytes Auto (Unsp spec) [#/Vol] 0.83 10*3/uL 0.83-4.51 [facility] Anion gap in Serum or Plasma Ordered By: Padmini Carrasco on 11-15-2024 Anion gap [Moles/Vol] 10 mmol/L 5-15 [facility] Automated lymphocyte count a s percentage of total leukocytesOrdered By: Padmini Carrasco on 11-15-2024 Lymphocytes/100 WBC Auto (Unsp spec) 12.5 % Low 19-41 [facility] BUN/creatinine ratioOrdered By: [facility]ary Carrasco on 11-15-2024 Urea nitrogen/Creatinine [Mass ratio] 15.4 mg/mg 10-20 [facility] Basophil percentageOrdered B y: Padmini Carrasco on 11-15-2024 Basophils/100 WBC (Bld) 0.8 % 0-1 [facility] Bilirubin, totalOrdered By: Padmini Carrasco on 11-15-2024 Bilirubin [Mass/Vol] 0.21 mg/dL 0.00-1.30 [facility] CBC W/Diff, Automatedon Absolute Lymph 0.83 X10 3/uL Normal 0.83-4.51 [facility] Comment on above: Order Comment: Order Date: 11/15/24Order Info: 0184-1 - CBCDOrder Info: 4679-7 - RETIC Performed By: #### L 503.6550, L500.4050, L100.0100, L100.9950, L503.6150 ####[facility] [address] [place], [address] Absolute Neut 4.9 X10 3/uL Normal 2.0-7.7 [facility] Comment on above: Order Comment: Order Date: 11/15/24Order Info: 183-02 - CBCDOrder Info: 4679-7 - RETIC Performed By: #### L 503.6550, L500.4050, L100.0100, L100.9950, L503.6150 ####[facility] [address] [place], [address] Basophils/100 WBC (Bld) 0.8 % Normal 0-1 [facility] Comment on above: Order Comment: Order Date: 11/15/24Order Info: 183-02 - CBCDOrder Info: 4679-7 - RETIC Performed By: #### L 503.6550, L500.4050, L100.0100, L100.9950, L503.6150 ####[facility] [address] [place], [address] Eosinophils/100 WBC (Bld) 2.1 % Normal 0-5 [facility] Comment on above: Order Comment: Order Date: 11/15/24Order Info: 183-02 - CBCDOrder Info: 4679-7 - RETIC Performed By: #### L 503.6550, L500.4050, L100.0100, L100.9950, L503.6150 ####[facility] [address] [place], [address] Erythrocyte distribution width (RBC) [Ratio] 15.8 % High 11.6-14.6 [facility] Comment on above: Order Comment: Order Date: 11/15/24Order Info: 01805-08 - CBCDOrder Info: 4679-7 - RETIC Performed By: #### L 503.6550, L500.4050, L100.0100, L100.9950, L503.6150 ####[facility] [address] [place], [address] Hematocrit (Bld) [Volume fraction] 31.1 % Low 40-54 [facility] Comment on above: Order Comment: Order Date: 11/15/24Order Info: 0184- - CBCDOrder Info: 4679-7 - RETIC Performed By: #### L 503.6550, L500.4050, L100.0100, L100.9950, L503.6150 ####[facility] [address] [place], [address] Hemoglobin (Bld) [Mass/Vol] 9.8 g/dL Low 13.0-16.5 [facility] Comment on above: Order Comment: Order Date: 11/15/24Order Info: 018- - CBCDOrder Info: 4679-7 - RETIC Performed By: #### L 503.6550, L500.4050, L100.0100, L100.9950, L503.6150 ####[facility] [address] [place], [address] IG% 0.500 Normal 0.0-0.9 [facility] Comment on above: Order Comment: Order Date: 11/15/24Order Info: 0184- - CBCDOrder Info: 4679-7 - RETIC Result Comment: IG% - Immature Granulocytes (promyelocytes, myelocytes andmetamyelocytes) > 1% indicates that a LEFT SHIFT is Present. Performed By: #### L 503.6550, L500.4050, L100.0100, L100.9950, L503.6150 ####[facility] [address] [place], [address] Lymphocytes/100 WBC (Bld) 12.5 % Low 19-41 [facility] Comment on above: Order Comment: Order Date: 11/15/24Order Info: 0184- - CBCDOrder Info: 4679-7 - RETIC Performed By: #### L 503.6550, L500.4050, L100.0100, L100.9950, L503.6150 ####[facility] [address] [place], [address] MCH (RBC) [Entitic mass] 30.5 pg Normal 27.0-32.0 [facility] Comment on above: Order Comment: Order Date: 11/15/24Order Info: 018- - CBCDOrder Info: 4679-7 - RETIC Performed By: #### L 503.6550, L500.4050, L100.0100, L100.9950, L503.6150 ####[facility] [address] [place], [address] MCHC (RBC) [Mass/Vol] 31.5 g/dL Low 32-36 [facility] Comment on above: Order Comment: Order Date: 11/15/24Order Info: 0184- - CBCDOrder Info: 4679-7 - RETIC Performed By: #### L 503.6550, L500.4050, L100.0100, L100.9950, L503.6150 ####[facility] [address] [place], [address] MCV (RBC) [Entitic vol] 96.9 fL High 80-94 [facility] Comment on above: Order Comment: Order Date: 11/15/24Order Info: 0184- - CBCDOrder Info: 4679-7 - RETIC Performed By: #### L 503.6550, L500.4050, L100.0100, L100.9950, L503.6150 ####[facility] [address] [place], [address] Monocytes/100 WBC (Bld) 11.3 % High 0-10 [facility] Comment on above: Order Comment: Order Date: 11/15/24Order Info: 0184-1 - CBCDOrder Info: 4679-7 - RETIC Performed By: #### L 503.6550, L500.4050, L100.0100, L100.9950, L503.6150 ####[facility] [address] [place], [address] Neutrophils/100 WBC (Bld) 72.8 % High 47-70 [facility] Comment on above: Order Comment: Order Date: 11/15/24Order Info: 0184-1 - CBCDOrder Info: 4679-7 - RETIC Performed By: #### L 503.6550, L500.4050, L100.0100, L100.9950, L503.6150 ####[facility] [address] [place], [address] Nucleated RBC (Bld) [#/Vol] 0 10*3/uL Normal 0-5 [facility] Comment on above: Order Comment: Order Date: 11/15/24Order Info: 0184-1 - CBCDOrder Info: 4679-7 - RETIC Performed By: #### L 503.6550, L500.4050, L100.0100, L100.9950, L503.6150 ####[facility] [address] [place], [address] Platelet mean volume (Bld) [Entitic vol] 8.9 fL Normal 6.2-12.0 [facility] Comment on above: Order Comment: Order Date: 11/15/24Order Info: 0184-1 - CBCDOrder Info: 4679-7 - RETIC Performed By: #### L 503.6550, L500.4050, L100.0100, L100.9950, L503.6150 ####[facility] [address] [place], [address] Platelets (Bld) [#/Vol] 266 10*3/uL Normal 150-450 [facility] Comment on above: Order Comment: Order Date: 11/15/24Order Info: 0184-1 - CBCDOrder Info: 4679-7 - RETIC Performed By: #### L 503.6550, L500.4050, L100.0100, L100.9950, L503.6150 ####[facility] [address] [place], [address] RBC (Bld) [#/Vol] 3.21 10*6/uL Low 4.6-6.2 [facility] Comment on above: Order Comment: Order Date: 11/15/24Order Info: 0184-1 - CBCDOrder Info: 4679-7 - RETIC Performed By: #### L 503.6550, L500.4050, L100.0100, L100.9950, L503.6150 ####[facility] [address] [place], [address] RDW SD 55.6 fl High 35.1-43.9 [facility] Comment on above: Order Comment: Order Date: 11/15/24Order Info: 0184-1 - CBCDOrder Info: 4679-7 - RETIC Performed By: #### L 503.6550, L500.4050, L100.0100, L100.9950, L503.6150 ####[facility] [address] [place], [address] WBC (Bld) [#/Vol] 6.7 10*3/uL Normal 4.4-11.0 [facility] Comment on above: Order Comment: Order Date: 11/15/24Order Info: 0184-1 - CBCDOrder Info: 4679-7 - RETIC Performed By: #### L 503.6550, L500.4050, L100.0100, L100.9950, L503.6150 ####[facility] [address] [place], [address] Carbon dioxide, total [Moles /volume] in Central venous bloodOrdered By: Padmini Carrasco on 11-15-2024 CO2 [Moles/Vol] 25.2 mmol/L 21.0-32.0 [facility] Chloride assayOrdered By: Rambo jacquinico Herbnevaeh on 11-15-2024 Chloride [Moles/Vol] 102 mmol/L 98-108 [facility] Comprehensive Metabolic Prof ilon 11-15-2024 Albumin [Mass/Vol] 3.8 g/dL Normal 3.4-4.8 [facility] Comment on above: Order Comment: Order Date: 11/15/24Order Info: 0786-1 - CMPOrder Info: 2497-05 - FEOrder Info: 2275-05 - LAURA Performed By: #### L 503.6550, L500.4050, L100.0100, L100.9950, L503.6150 ####[facility] [address] [place], [address] Albumin/Globulin [Mass ratio] 1.4 {ratio} Normal 0.9-2.4 [facility] Comment on above: Order Comment: Order Date: 11/15/24Order Info: 0786- - CMPOrder Info: 2497-05 - FEOrder Info: 2275-05 - LAURA Performed By: #### L 503.6550, L500.4050, L100.0100, L100.9950, L503.6150 ####[facility] [address] [place], [address] ALK PHOS 64 U/L Normal 40-129 [facility] Comment on above: Order Comment: Order Date: 11/15/24Order Info: 0786- - CMPOrder Info: 2497-05 - FEOrder Info: 4 - LAURA Performed By: #### L 503.6550, L500.4050, L100.0100, L100.9950, L503.6150 ####[facility] [address] [place], [address] ALT [Catalytic activity/Vol] 10 U/L Normal <=46 [facility] Comment on above: Order Comment: Order Date: 11/15/24Order Info: 0786-1 - CMPOrder Info: 2497-05 - FEOrder Info: 2275-05 - LAURA Performed By: #### L 503.6550, L500.4050, L100.0100, L100.9950, L503.6150 ####[facility] [address] [place], [address] AST [Catalytic activity/Vol] 17 U/L Normal <=37 [facility] Comment on above: Order Comment: Order Date: 11/15/24Order Info: 0786-1 - CMPOrder Info: 2497-05 - FEOrder Info: 2275-05 - LAURA Performed By: #### L 503.6550, L500.4050, L100.0100, L100.9950, L503.6150 ####[facility] [address] [place], [address] Bilirubin [Mass/Vol] 0.21 mg/dL Normal 0.00-1.30 [facility] Comment on above: Order Comment: Order Date: 11/15/24Order Info: 0786-1 - CMPOrder Info: 2497-05 - FEOrder Info: 2275-05 - LAURA Performed By: #### L 503.6550, L500.4050, L100.0100, L100.9950, L503.6150 ####[facility] [address] [place], [address] BUN/CRE 15.4 RATIO Normal 10-20 [facility] Comment on above: Order Comment: Order Date: 11/15/24Order Info: 0786-1 - CMPOrder Info: 2497-05 - FEOrder Info: 2275-05 - LAURA Performed By: #### L 503.6550, L500.4050, L100.0100, L100.9950, L503.6150 ####[facility] [address] [place], [address] Calcium [Mass/Vol] 8.8 mg/dL Normal 7.6-11.0 [facility] Comment on above: Order Comment: Order Date: 11/15/24Order Info: 0786- - CMPOrder Info: 2497-05 FEOrder Info: 2275-05 - LAURA Performed By: #### L 503.6550, L500.4050, L100.0100, L100.9950, L503.6150 ####[facility] [address] [place], [address] Chloride [Moles/Vol] 102 mmol/L Normal 98-108 [facility] Comment on above: Order Comment: Order Date: 11/15/24Order Info: 07- - CMPOrder Info: 2497-05 - FEOrder Info: 2275-05 - LAURA Performed By: #### L 503.6550, L500.4050, L100.0100, L100.9950, L503.6150 ####[facility] [address] [place], [address] CO2 [Moles/Vol] 25.2 mmol/L Normal 21.0-32.0 [facility] Comment on above: Order Comment: Order Date: 11/15/24Order Info: 0786 - CMPOrder Info: 2497-05 - FEOrder Info: 2275-05 - LAURA Performed By: #### L 503.6550, L500.4050, L100.0100, L100.9950, L503.6150 ####[facility] [address] [place], [address] Creatinine [Mass/Vol] 1.70 mg/dL High 0.70-1.20 [facility] Comment on above: Order Comment: Order Date: 11/15/24Order Info: 0786 - CMPOrder Info: 2497-05 FEOrder Info: 2275-05 - LAURA Performed By: #### L 503.6550, L500.4050, L100.0100, L100.9950, L503.6150 ####[facility] [address] [place], [address] GAP 10 Normal 5-15 [facility] Comment on above: Order Comment: Order Date: 11/15/24Order Info: 07- - CMPOrder Info: 2497-05 FEOrder Info: 2275-05 - LAURA Performed By: #### L 503.6550, L500.4050, L100.0100, L100.9950, L503.6150 ####[facility] [address] [place], [address] GFR/1.73 sq M.predicted among non-blacks MDRD (S/P/Bld) [Vol rate/Area] 42 mL/min/{1.73_m2} Low >60 [facility] Comment on above: Order Comment: Order Date: 11/15/24Order Info: 785- - CMPOrder Info: 2497-05 - FEOrder Info: 2275-05 - LAURA Result Comment: mL/m in/1.73m2 CKD-EPI Creatinine Equation (2020) Performed By: #### L 503.6550, L500.4050, L100.0100, L100.9950, L503.6150 ####[facility] [address] [place], [address] Globulin (S) [Mass/Vol] 2.7 g/dL Normal 2.2-4.2 [facility] Comment on above: Order Comment: Order Date: 11/15/24Order Info: 0786 - CMPOrder Info: 2497-05 FEOrder Info: 2275-05 - LAURA Performed By: #### L 503.6550, L500.4050, L100.0100, L100.9950, L503.6150 ####[facility] [address] [place], [address] Glucose [Mass/Vol] 100 mg/dL High 70-99 [facility] Comment on above: Order Comment: Order Date: 11/15/24Order Info: 0786- - CMPOrder Info: 2497-05 - FEOrder Info: 2275-05 - LAURA Performed By: #### L 503.6550, L500.4050, L100.0100, L100.9950, L503.6150 ####[facility] [address] [place], [address] Potassium [Moles/Vol] 4.7 mmol/L Normal 3.3-5.1 [facility] Comment on above: Order Comment: Order Date: 11/15/24Order Info: 0786-1 - CMPOrder Info: 2497-05 - FEOrder Info: 2275-05 - LARUA Performed By: #### L 503.6550, L500.4050, L100.0100, L100.9950, L503.6150 ####[facility] [address] [place], [address] Sodium [Moles/Vol] 137 mmol/L Normal 133-145 [facility] Comment on above: Order Comment: Order Date: 11/15/24Order Info: 0786- - CMPOrder Info: 2497-05 - FEOrder Info: 2275-05 - LAUAR Performed By: #### L 503.6550, L500.4050, L100.0100, L100.9950, L503.6150 ####[facility] [address] [place], [address] T PROT 6.5 g/dL Normal 5.9-8.4 [facility] Comment on above: Order Comment: Order Date: 11/15/24Order Info: 0786- - CMPOrder Info: 2497-05 - FEOrder Info: 2275-05 - LAURA Performed By: #### L 503.6550, L500.4050, L100.0100, L100.9950, L503.6150 ####[facility] [address] [place], [address] Urea nitrogen [Mass/Vol] 26 mg/dL High 4-19 [facility] Comment on above: Order Comment: Order Date: 11/15/24Order Info: 0786-1 - CMPOrder Info: 2497-05 - FEOrder Info: 2275-4 - LAURA Performed By: #### L 503.6550, L500.4050, L100.0100, L100.9950, L503.6150 ####[facility] [address] [place], [address] Eosinophil percentageOrdered By: Padmini Carrasco on 11-15-2024 Eosinophils/100 WBC (Bld) 2.1 % 0-5 [facility] Erythrocyte distribution wid th ratioOrdered By: Padmini Carrasco on 11-15-2024 Erythrocyte distribution width (RBC) [Ratio] 15.8 % High 11.6-14.6 [facility] Erythrocyte distribution wid th standard deviationOrdered By: Padmini Carrasco on 11-15-2024 Erythrocyte distribution width (RBC) [Ratio] 55.6 fl High 35.1-43.9 [facility] Ferritinon 11-15-2024 Ferritin [Mass/Vol] 128 ng/mL Normal 37-417 [facility] Comment on above: Order Comment: Order Date: 11/15/24Order Info: 0786-1 - CMPOrder Info: 2498-4 - FEOrder Info: 2276-4 - LAURA Performed By: #### L 503.6550, L500.4050, L100.0100, L100.9950, L503.6150 ####[facility] [address] [place], [address] Glomerular filtration rate ( GFR) estimation/1.73 sq m using serum, plasma, or whole bOrdered By: Padmini Carrasco on 11-15-2024 GFR/1.73 sq M.predicted among non-blacks MDRD (S/P/Bld) [Vol rate/Area] 42 mL/min/{1.73_m2} Low >60 [facility] Hematocrit Auto (Bld) [Volum e fraction]Ordered By: Padmini Carrasco on 11-15-2024 Hematocrit (Bld) [Volume fraction] 31.1 % Low 40-54 [facility] Hemoglobin measurementOrdere d By: Padmini Carrasco on 11-15-2024 Hemoglobin (Bld) [Mass/Vol] 9.8 g/dL Low 13.0-16.5 [facility] Immature granulocytes/100 WB C Auto (Bld)Ordered By: Padmini Carrasco on 11-15-2024 Immature granulocytes/100 WBC (Bld) 0.500 % 0.0-0.9 [facility] Ironon 11-15-2024 Iron [Mass/Vol] 47 ug/dL Low 65-175 [facility] Comment on above: Order Comment: Order Date: 11/15/24Order Info: 0786-1 - CMPOrder Info: 2498-4 - FEOrder Info: 2276-4 - LAURA Performed By: #### L 503.6550, L500.4050, L100.0100, L100.9950, L503.6150 ####[facility] [address] [place], [address] Iron measurement (mass/mass) Ordered By: Padmini Carrasco on 11-15-2024 Iron (Unsp spec) [Mass/Mass] 47 ug/dL Low 65-175 [facility] MCV (mean corpuscular volume ) determinationOrdered By: Padmini Carrasco on 11-15-2024 MCV (RBC) [Entitic vol] 96.9 fL High 80-94 [facility] Mean corpuscular hemoglobin (MCH) determinationOrdered By: Padmini Carrasco on 11-15-2024 MCH (RBC) [Entitic mass] 30.5 pg 27.0-32.0 [facility] Monocyte percentageOrdered B y: Padmini Carrasco on 11-15-2024 Monocytes/100 WBC (Bld) 11.3 % High 0-10 [facility] Neutrophil percentageOrdered By: Padmini Carrasco on 11-15-2024 Neutrophils/100 WBC (Bld) 72.8 % High 47-70 [facility] No Panel InformationOrdered By: Padmini Carrasco on 11-15-2024 17 U/L <38 [facility] Platelet countOrdered By: Rambo Carrasco on 11-15-2024 Platelets (Bld) [#/Vol] 266 10*3/uL 150-450 [facility] Potassium measurement (mass/ volume)Ordered By: Padmini Carrasco on 11-15-2024 Potassium (Unsp spec) [Mass/Vol] 4.7 mmol/L 3.3-5.1 [facility] RBC Auto (Bld) [#/Vol]Ordere d By: Padmini Carrasco on 11-15-2024 RBC (Bld) [#/Vol] 3.21 10*6/uL Low 4.6-6.2 [facility] Retic Panelon 11-15-2024 IM RET FRACTION 21.50 High 3.00-15.90 [facility] Comment on above: Order Comment: Order Date: 11/15/24Order Info: 0184-1 - CBCDOrder Info: 4679-7 - RETIC Performed By: #### L 503.6550, L500.4050, L100.0100, L100.9950, L503.6150 ####[facility] [address] [place], [place], [id number] RET-HE 31.6 pg Normal 30-35 [facility] Comment on above: Order Comment: Order Date: 11/15/24Order Info: 0184-1 - CBCDOrder Info: 4679-7 - RETIC Performed By: #### L 503.6550, L500.4050, L100.0100, L100.9950, L503.6150 ####[facility] [address] [place], [place], [id number] Retic Count 3.05 High 0.5-1.5 [facility] Comment on above: Order Comment: Order Date: 11/15/24Order Info: 0184-1 - CBCDOrder Info: 4679-7 - RETIC Performed By: #### L 503.6550, L500.4050, L100.0100, L100.9950, L503.6150 ####[facility] [address] [place], [address] Reticulocyte hemoglobin equi valent (RET-He) measurementOrdered By: Padmini Carrasco on 11-15-2024 Hemoglobin (Reticulocytes) [Entitic mass] 31.6 pg 30-35 [facility] Reticulocytes Auto (Bld) [#/ Vol]Ordered By: Padmini Carrasco on 11-15-2024 Reticulocytes/100 RBC (Bld) 3.05 % High 0.5-1.5 [facility] Serum creatinine measurement (mass/volume)Ordered By: Padmini Carrasco on 11-15-2024 Creatinine [Mass/Vol] 1.70 mg/dL High 0.70-1.20 [facility] Serum globulin measurementOr dered By: Padmini Carrasco on 11-15-2024 Globulin (S) [Mass/Vol] 2.7 g/dL 2.2-4.2 [facility] Serum glucose measurement (m ass/volume)Ordered By: Padmini Carrasco on 11-15-2024 Glucose [Mass/Vol] 100 mg/dL High 70-99 [facility] Serum or plasma alanine perales otransferase (ALT) measurementOrdered By: Padmini Carrasco on 11-15-2024 ALT [Catalytic activity/Vol] 10 U/L <47 [facility] Serum or plasma albumin jamel urement (mass/volume)Ordered By: Padmini Carrasco on 11-15-2024 Albumin [Mass/Vol] 3.8 g/dL 3.4-4.8 [facility] Serum or plasma albumin/glob ulin mass ratioOrdered By: Padmini Carrasco on 11-15-2024 Albumin/Globulin [Mass ratio] 1.4 {ratio} 0.9-2.4 [facility] Serum or plasma alkaline masha sphatase measurementOrdered By: Padmini Carrasco on 11-15-2024 ALP [Catalytic activity/Vol] 64 U/L 40-129 [facility] Serum or plasma calcium jamel urement (mass/volume)Ordered By: Padmini Carrasco on 11-15-2024 Calcium [Mass/Vol] 8.8 mg/dL 7.6-11.0 [facility] Serum or plasma ferritin ahmet surement (mass/volume)Ordered By: Padmini Carrasco on 11-15-2024 Ferritin [Mass/Vol] 128 ng/mL 37-417 [facility] Serum or plasma urea nitroge n measurement (mass/volume)Ordered By: Padmini Carrasco on 11-15-2024 Urea nitrogen [Mass/Vol] 26 mg/dL High 4-19 [facility] Sodium levelOrdered By: Aguedaju gutierrez Luna on 11-15-2024 Sodium [Moles/Vol] 137 mmol/L 133-145 [facility] Total proteinOrdered By: [facility] E[facility] on 11-15-2024 Protein [Mass/Vol] 6.5 g/dL 5.9-8.4 [facility] Urine cultureOrdered By: [facility]her Carrasco on 11-15-2024 Bacteria identified Cx Nom (U) Culture exhibits no growth. [facility] White blood cell (WBC) count Ordered By: Padmini Carrasco on 11-15-2024 WBC (Bld) [#/Vol] 6.7 10*3/uL 4.4-11.0 [facility] CNPNon 11-13-2024 CNPN Telephone (VAIBHAV) ABELARDO IVORY ([id number]) 1950 M Date Time Provider Department 11/13/24 MATTHEW GU During your visit today, we recorded the following information about you: Matthew Gu RN 11/13/2024 9:54 AM Signed DISCHARGE CALL BACK Today's date: November 13, 2024 Notified of Pt discharge by: Epic notification Patient discharged on 11/11/24 from [facility] to Home Primary Cancer Diagnosis: muscle invasive bladder cancer. 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 - kzsfypuctgl-emgymogxe-o ilanter (TRELEGY ELLIPTA) 200-62.5-25 mcg inhalation powder [...] [E78.5] 02/07/20 (more content not included)... [facility] Basic metabolic 2000 panelon 11-11-2024 Anion gap [Moles/Vol] 13 mmol/L Normal 8-15 [facility] Comment on above: Order Comment: Speci men Type: BLOOD SPECIMENOrdering Facility: [facility] Address: [address] [place] [address] Performed By: #### 2 4321-2 ####[facility] LABORATORYCLIA [id number] [place] [address] [place] Calcium [Mass/Vol] 8.5 mg/dL Normal 8.5-10.2 [facility] Comment on above: Order Comment: Speci men Type: BLOOD SPECIMENOrdering Facility: [facility] Address: [address] [place] [address] Performed By: #### 2 4321-2 ####[facility] LABORATORYCLIA [id number] [place] [address] [place] Chloride [Moles/Vol] 102 mmol/L Normal 98-107 [facility] Comment on above: Order Comment: Speci men Type: BLOOD SPECIMENOrdering Facility: [facility] Address: [address] [place] [address] Performed By: #### 2 4321-2 ####[facility][1] LABORATORYCLIA [id number] [place] [address] [place] CO2 [Moles/Vol] 22 mmol/L Normal 22-30 [facility] Comment on above: Order Comment: Speci men Type: BLOOD SPECIMENOrdering Facility: [facility] Address: [address] [place] [address] Performed By: #### 2 4321-2 ####[facility] LABORATORYCLIA [id number] [place] [address] [place] Creatinine [Mass/Vol] 1.69 mg/dL High 0.73-1.22 [facility] Comment on above: Order Comment: Speci men Type: BLOOD SPECIMENOrdering Facility: [facility] Address: [address] [place] [address] Performed By: #### 2 4321-2 ####[facility] LABORATORYCLIA [id number] [place] [address] [place] eGFRcr SerPlBld CKD-EPI 2020 42 mL/min/1.73m??? Low >=60 [facility] Comment on above: Order Comment: Raul hutson Type: BLOOD SPECIMENOrdering Facility: [facility] Address: [address] [place] [address] Result Comment: Amy mated Glomerular Filtration Rate [...] actual GFR. Performed By: #### 2 4321-2 ####[facility][1] LABORATORYCLIA [id number] [place] [address] [place] Glucose [Mass/Vol] 91 mg/dL Normal 74-99 [facility] Comment on above: Order Comment: Raul hutson Type: BLOOD SPECIMENOrdering Facility: [facility] Address: [address] [place] [address] Result Comment: The [place] Diabetes Association (ADA) provides guidance for cutoff values for fasting glucose and random glucose. The ADA defines fasting as no caloric intake for at least 8 hours. Fasting plasma glucose results between 100 to 125 mg/dL indicate increased risk for diabetes (prediabetes).Fasting plasma glucose results greater than or equal to 126 mg/dL meet the criteria for diagnosis of diabetes. In the absence of unequivocal hyperglycemia, results should be confirmed by repeat testing. In a patient with classic symptoms of hyperglycemia or hyperglycemic crisis, random plasma glucose results greater than or equal to 200 mg/dL meet the criteria for diagnosis of diabetes.Reference: Standards of Medical Care in Diabetes 2016, [place] [employer]. Diabetes Care. 2016.39(Suppl 1). Performed By: #### 2 4321-2 ####[facility][1] LABORATORYCLIA [id number] [place] [id number] [place] Potassium [Moles/Vol] 4.6 mmol/L Normal 3.7-5.1 [facility] Comment on above: Order Comment: Speci men Type: BLOOD SPECIMENOrdering Facility: [facility] Address: [address] [place] [address] Performed By: #### 2 4321-2 ####[facility][1] LABORATORYCLIA [id number] [address] Sodium [Moles/Vol] 137 mmol/L Normal 136-144 [facility] Comment on above: Order Comment: Speci men Type: BLOOD SPECIMENOrdering Facility: [facility] Address: [address] [place] [address] Performed By: #### 2 4321-2 ####[facility][1] LABORATORYCLIA [id number] [address] [place] Urea nitrogen [Mass/Vol] 21 mg/dL Normal 9-24 [facility] Comment on above: Order Comment: Speci men Type: BLOOD SPECIMENOrdering Facility: [facility] Address: [address] [place] [address] Performed By: #### 2 4321-2 ####[facility][1] LABORATORYCLIA [id number] [address] [place] CASE MANAGEMon 11-11-2024 CASE MANAGEM [facility] CBC panel Auto (Bld)on 11-11 Erythrocyte distribution width (RBC) [Ratio] 15.9 % High 11.5-15.0 [facility] Comment on above: Order Comment: Speci men Type: BLOOD SPECIMENOrdering Facility: [facility] Address: [address] [place] [address] Performed By: #### 5 8410-2 ####[facility][1] LABORATORYCLIA [id number] [address] Hematocrit (Bld) [Volume fraction] 29.6 % Low 39.0-51.0 [facility] Comment on above: Order Comment: Speci men Type: BLOOD SPECIMENOrdering Facility: [facility] Address: [address] [place] [address] Performed By: #### 5 8410-2 ####[facility][1] LABORATORYCLIA [id number] [address] Hemoglobin (Bld) [Mass/Vol] 9.6 g/dL Low 13.0-17.0 [facility] Comment on above: Order Comment: Speci men Type: BLOOD SPECIMENOrdering Facility: [facility] Address: [address] [place] [address] Performed By: #### 5 8410-2 ####[facility][1] LABORATORYCLIA [id number] [address] MCH (RBC) [Entitic mass] 30.8 pg Normal 26.0-34.0 [facility] Comment on above: Order Comment: Speci men Type: BLOOD SPECIMENOrdering Facility: [facility] Address: [address] [place] [address] Performed By: #### 5 8410-2 ####[facility][1] LABORATORYCLIA [id number] [address] MCHC (RBC) [Mass/Vol] 32.4 g/dL Normal 30.5-36.0 [facility] Comment on above: Order Comment: Speci men Type: BLOOD SPECIMENOrdering Facility: [facility] Address: [address] [place] [address] Performed By: #### 5 8410-2 ####[facility][1] LABORATORYCLIA [id number] [address] [place] MCV (RBC) [Entitic vol] 94.9 fL Normal 80.0-100.0 [facility] Comment on above: Order Comment: Speci men Type: BLOOD SPECIMENOrdering Facility: [facility] Address: [address] [place] [address] Performed By: #### 5 8410-2 ####[facility][1] LABORATORYCLIA [id number] [address] Nucleated RBC (Bld) [#/Vol] 10*3/uL Normal <0.01 [facility] Comment on above: Order Comment: Speci men Type: BLOOD SPECIMENOrdering Facility: [facility] Address: [address] [place], [place] [address] Performed By: #### 5 8410-2 ####[facility][1] LABORATORYCLIA [id number] [address] [place] Platelet mean volume (Bld) [Entitic vol] 9.0 fL Normal 9.0-12.7 [facility] Comment on above: Order Comment: Speci men Type: BLOOD SPECIMENOrdering Facility: [facility] Address: [address] [place] [address] Performed By: #### 5 8410-2 ####[facility][1] LABORATORYCLIA [id number] [address] [place] Platelets (Bld) [#/Vol] 186 10*3/uL Normal 150-400 [facility] Comment on above: Order Comment: Speci men Type: BLOOD SPECIMENOrdering Facility: [facility] Address: [address] [place] [address] Performed By: #### 5 8410-2 ####[facility][1] LABORATORYCLIA [id number] [address] [place] RBC (Bld) [#/Vol] 3.12 10*6/uL Low 4.20-6.00 [facility] Comment on above: Order Comment: Speci men Type: BLOOD SPECIMENOrdering Facility: [facility] Address: [address] [place] [address] Performed By: #### 5 8410-2 ####[facility][1] LABORATORYCLIA [id number] [place] [address] [place] WBC (Bld) [#/Vol] 6.30 10*3/uL Normal 3.70-11.00 [facility] Comment on above: Order Comment: Speci men Type: BLOOD SPECIMENOrdering Facility: [facility] Address: [address] [place] [address] Performed By: #### 5 8410-2 ####[facility][1] LABORATORYCLIA [id number] [address] [place] CNDSon 11-11-2024 CNDS Normal [facility] Hematocrit Auto (Bld) [Volum e fraction]on 11-11-2024 Hematocrit (Bld) [Volume fraction] 28.6 % Low 39.0-51.0 [facility] Comment on above: Order Comment: Speci men Type: BLOOD SPECIMENOrdering Facility: [facility] Address: [address] [place] [address] Performed By: #### 7 18-7, 4544-3 ####[facility][1] LABORATORYCLIA [id number] [address] [place] Hgb Bld-mCncon 11-11-2024 Hemoglobin (Bld) [Mass/Vol] 9.2 g/dL Low 13.0-17.0 [facility] Comment on above: Order Comment: Speci men Type: BLOOD SPECIMENOrdering Facility: [facility] Address: [address] [place] [address] Performed By: #### 7 18-7, 4544-3 ####[facility][1] LABORATORYCLIA [id number] [place] [address] [place] THERAPY NTon 11-11-2024 THERAPY NT Normal [facility] Basic metabolic 2000 panelon 11-10-2024 Anion gap [Moles/Vol] 10 mmol/L Normal 8-15 [facility] Comment on above: Order Comment: Speci men Type: BLOOD SPECIMENOrdering Facility: [facility] Address: [address] [place] [address] Performed By: #### 2 4321-2 ####[facility][1] LABORATORYCLIA [id number] [place] [address] [place] Calcium [Mass/Vol] 8.5 mg/dL Normal 8.5-10.2 [facility] Comment on above: Order Comment: Speci men Type: BLOOD SPECIMENOrdering Facility: [facility] Address: [address] [place] [address] Performed By: #### 2 4321-2 ####[facility][1] LABORATORYCLIA [id number] [place] [address] [place] Chloride [Moles/Vol] 100 mmol/L Normal 98-107 [facility] Comment on above: Order Comment: Speci men Type: BLOOD SPECIMENOrdering Facility: [facility] Address: [address] [place] [address] Performed By: #### 2 4321-2 ####[facility][1] LABORATORYCLIA [id number] [place] [address] [place] CO2 [Moles/Vol] 23 mmol/L Normal 22-30 [facility] Comment on above: Order Comment: Speci men Type: BLOOD SPECIMENOrdering Facility: [facility] Address: [address] [place] [address] Performed By: #### 2 4321-2 ####[facility] INDIANACLIA [id number] [place] [address] [place] Creatinine [Mass/Vol] 1.65 mg/dL High 0.73-1.22 [facility] Comment on above: Order Comment: Speci men Type: BLOOD SPECIMENOrdering Facility: [facility] Address: [address] [place] [address] Performed By: #### 2 4321-2 ####[facility][1] LABORATORYCLIA [id number] [address] [place] eGFRcr SerPlBld CKD-EPI 2020 43 mL/min/1.73m??? Low >=60 [facility] Comment on above: Order Comment: Speci men Type: BLOOD SPECIMENOrdering Facility: [facility] Address: [address] [place] [address] Result Comment: Amy mated Glomerular Filtration Rate [...] actual GFR. Performed By: #### 2 4321-2 ####[facility][1] LABORATORYCLIA [id number] [place] [address] [place] Glucose [Mass/Vol] 91 mg/dL Normal 74-99 [facility] Comment on above: Order Comment: Speci men Type: BLOOD SPECIMENOrdering Facility: [facility] Address: [address] [place], [place] [address] Result Comment: The [place] Diabetes [employer] (ADA) provides guidance for cutoff values for fasting glucose and random glucose. The ADA defines fasting as no caloric intake for at least 8 hours. Fasting plasma glucose results between 100 to 125 mg/dL indicate increased risk for diabetes (prediabetes).Fasting plasma glucose results greater than or equal to 126 mg/dL meet the criteria for diagnosis of diabetes. In the absence of unequivocal hyperglycemia, results should be confirmed by repeat testing. In a patient with classic symptoms of hyperglycemia or hyperglycemic crisis, random plasma glucose results greater than or equal to 200 mg/dL meet the criteria for diagnosis of diabetes.Reference: Standards of Medical Care in Diabetes 2016, [place] [employer]. Diabetes Care. 2016.39(Suppl 1). Performed By: #### 2 4321-2 ####[facility][1] LABORATORYCLIA [id number] [place] [address] [place] Potassium [Moles/Vol] 4.5 mmol/L Normal 3.7-5.1 [facility] Comment on above: Order Comment: Raul caryl Type: BLOOD SPECIMENOrdering Facility: [facility] Address: [address] [place] [address] Performed By: #### 2 4321-2 ####[facility][1] LABORATORYCLIA [id number] [place] [address] [place] Sodium [Moles/Vol] 133 mmol/L Low 136-144 [facility] Comment on above: Order Comment: Speci men Type: BLOOD SPECIMENOrdering Facility: [facility] Address: [address] [place] [id number] Performed By: #### 2 4321-2 ####[facility][1] LABORATORYCLIA [id number] [place] [address] [place] Urea nitrogen [Mass/Vol] 26 mg/dL High 9-24 [facility] Comment on above: Order Comment: Speci men Type: BLOOD SPECIMENOrdering Facility: [facility] Address: [address] [place] [address] Performed By: #### 2 4321-2 ####[facility][1] LABORATORYCLIA [id number] [address] CBC panel Auto (Bld)on 11-10 Erythrocyte distribution width (RBC) [Ratio] 16.0 % High 11.5-15.0 [facility] Comment on above: Order Comment: Speci men Type: BLOOD SPECIMENOrdering Facility: [facility] Address: [address] [place] [address] Performed By: #### 5 8410-2 ####[facility][1] LABORATORYCLIA [id number] [address] OF [facility] Hematocrit (Bld) [Volume fraction] 26.6 % Low 39.0-51.0 [facility] Comment on above: Order Comment: Speci men Type: BLOOD SPECIMENOrdering Facility: [facility] Address: [address] [place] [address] Performed By: #### 5 8410-2 ####[facility][1] LABORATORYCLIA [id number] [address] [facility] Hemoglobin (Bld) [Mass/Vol] 8.6 g/dL Low 13.0-17.0 [facility] Comment on above: Order Comment: Speci men Type: BLOOD SPECIMENOrdering Facility: [facility] Address: [address] [place] [address] Performed By: #### 5 8410-2 ####[facility][1] LABORATORYCLIA [id number] [address] [place] [facility] MCH (RBC) [Entitic mass] 30.4 pg Normal 26.0-34.0 [facility] Comment on above: Order Comment: Speci men Type: BLOOD SPECIMENOrdering Facility: [facility] Address: [address] [place] [address] Performed By: #### 5 8410-2 ####[facility][1] LABORATORYCLIA [id number] [place] [address] [place] MCHC (RBC) [Mass/Vol] 32.3 g/dL Normal 30.5-36.0 [facility] Comment on above: Order Comment: Speci men Type: BLOOD SPECIMENOrdering Facility: [facility] Address: [address] [place] [address] Performed By: #### 5 8410-2 ####[facility][1] LABORATORYCLIA [id number] [address] [place] MCV (RBC) [Entitic vol] 94.0 fL Normal 80.0-100.0 [facility] Comment on above: Order Comment: Speci men Type: BLOOD SPECIMENOrdering Facility: [facility] Address: [address] [place] [address] Performed By: #### 5 8410-2 ####[facility][1] LABORATORYCLIA [id number] [address] [facility] Nucleated RBC (Bld) [#/Vol] 10*3/uL Normal <0.01 [facility] Comment on above: Order Comment: Speci men Type: BLOOD SPECIMENOrdering Facility: [facility] Address: [address] [place] [address] Performed By: #### 5 8410-2 ####[facility][1] LABORATORYCLIA [id number] [address] [place] Platelet mean volume (Bld) [Entitic vol] 9.0 fL Normal 9.0-12.7 [facility] Comment on above: Order Comment: Speci men Type: BLOOD SPECIMENOrdering Facility: [facility] Address: [address] [place] [address] Performed By: #### 5 8410-2 ####[facility][1] LABORATORYCLIA [id number] [address] [place] Platelets (Bld) [#/Vol] 149 10*3/uL Low 150-400 [facility] Comment on above: Order Comment: Speci men Type: BLOOD SPECIMENOrdering Facility: [facility] Address: [address] [place] [address] Performed By: #### 5 8410-2 ####[facility][1] LABORATORYCLIA [id number] [address] [facility] RBC (Bld) [#/Vol] 2.83 10*6/uL Low 4.20-6.00 [facility] Comment on above: Order Comment: Speci men Type: BLOOD SPECIMENOrdering Facility: [facility] Address: [address] [place] [address] Performed By: #### 5 8410-2 ####[facility][1] LABORATORYCLIA [id number] [address] STATES OF [facility] WBC (Bld) [#/Vol] 5.56 10*3/uL Normal 3.70-11.00 [facility] Comment on above: Order Comment: Speci men Type: BLOOD SPECIMENOrdering Facility: [facility] Address: [address] [place] [address] Performed By: #### 5 8410-2 ####[facility][1] LABORATORYCLIA [id number] [address] CNPNon 11-10-2024 CNPN Normal [facility] CONSULTon 11-10-2024 CONSULT Normal [facility] CONSULT PROGon 11-10-2024 CONSULT PROG Normal [facility] CONSULT PROG Normal [facility] Hgb Bld-mCncon 11-10-2024 Hemoglobin (Bld) [Mass/Vol] 8.7 g/dL Low 13.0-17.0 [facility] Comment on above: Order Comment: Speci men Type: BLOOD SPECIMENOrdering Facility: [facility] Address: [address] [place] [address] Performed By: #### 7 18-7 ####[facility][1] LABORATORYCLIA [id number] [address] [place] Basic metabolic 2000 panelon 11-09-2024 Anion gap [Moles/Vol] 9 mmol/L Normal 8-15 [facility] Comment on above: Order Comment: Speci men Type: BLOOD SPECIMENOrdering Facility: [facility] Address: [address] [place] [address] Performed By: #### 2 4321-2 ####[facility]ORATORYCLIA [id number] [place] [address] [place] Calcium [Mass/Vol] 8.3 mg/dL Low 8.5-10.2 [facility] Comment on above: Order Comment: Speci men Type: BLOOD SPECIMENOrdering Facility: [facility] Address: [address] [place] [address] Performed By: #### 2 4321-2 ####[facility][1] LABORATORYCLIA [id number] [place] [address] [place] Chloride [Moles/Vol] 106 mmol/L Normal 98-107 [facility] Comment on above: Order Comment: Speci men Type: BLOOD SPECIMENOrdering Facility: [facility] Address: [address] [place] [address] Performed By: #### 2 4321-2 ####[facility][1] LABORATORYCLIA [id number] [place] [address] [place] CO2 [Moles/Vol] 22 mmol/L Normal 22-30 [facility] Comment on above: Order Comment: Speci men Type: BLOOD SPECIMENOrdering Facility: [facility] Address: [address] [place] [address] Performed By: #### 2 4321-2 ####[facility][1] LABORATORYCLIA [id number] [place] [address] [place] Creatinine [Mass/Vol] 1.83 mg/dL High 0.73-1.22 [facility] Comment on above: Order Comment: Speci men Type: BLOOD SPECIMENOrdering Facility: [facility] Address: [address] [place] [address] Performed By: #### 2 4321-2 ####[facility][1] LABORATORYCLIA [id number] [place] [address] [place] eGFRcr SerPlBld CKD-EPI 2020 38 mL/min/1.73m??? Low >=60 [facility] Comment on above: Order Comment: Raul hutson Type: BLOOD SPECIMENOrdering Facility: [facility] Address: [address] [place] [address] Result Comment: Amy mated Glomerular Filtration Rate [...] actual GFR. Performed By: #### 2 4321-2 ####[facility][1] LABORATORYCLIA [id number] [place] [address] [place] Glucose [Mass/Vol] 111 mg/dL High 74-99 [facility] Comment on above: Order Comment: Raul hutson Type: BLOOD SPECIMENOrdering Facility: [facility] Address: [address] [place] [address] Result Comment: The [place] Diabetes [employer] (ADA) provides guidance for cutoff values for fasting glucose and random glucose. The ADA defines fasting as no caloric intake for at least 8 hours. Fasting plasma glucose results between 100 to 125 mg/dL indicate increased risk for diabetes (prediabetes).Fasting plasma glucose results greater than or equal to 126 mg/dL meet the criteria for diagnosis of diabetes. In the absence of unequivocal hyperglycemia, results should be confirmed by repeat testing. In a patient with classic symptoms of hyperglycemia or hyperglycemic crisis, random plasma glucose results greater than or equal to 200 mg/dL meet the criteria for diagnosis of diabetes.Reference: Standards of Medical Care in Diabetes 2016, [place] [employer]. Diabetes Care. 2016.39(Suppl 1). Performed By: #### 2 4321-2 ####[facility][1] LABORATORYCLIA [id number] [place] [address] [place] Potassium [Moles/Vol] 5.0 mmol/L Normal 3.7-5.1 [facility] Comment on above: Order Comment: Raul hutson Type: BLOOD SPECIMENOrdering Facility: [facility] Address: [address] [place] [address] Performed By: #### 2 4321-2 ####[facility][1] LABORATORYCLIA [id number] [place] [id number] [place] Sodium [Moles/Vol] 137 mmol/L Normal 136-144 [facility] Comment on above: Order Comment: Speci men Type: BLOOD SPECIMENOrdering Facility: [facility] Address: [address] [place] [address] Performed By: #### 2 4321-2 ####[facility][1] LABORATORYCLIA [id number] [address] [place] Urea nitrogen [Mass/Vol] 40 mg/dL High 9-24 [facility] Comment on above: Order Comment: Speci men Type: BLOOD SPECIMENOrdering Facility: [facility] Address: [address] [place] [address] Performed By: #### 2 4321-2 ####[facility][1] LABORATORYCLIA [id number] [address] OF [facility] CASE MANAGEMon 11-09-2024 CASE MANAGEM Normal [facility] CASE MANAGEM Normal [facility] CBC panel Auto (Bld)on 11-09 Erythrocyte distribution width (RBC) [Ratio] 16.0 % High 11.5-15.0 [facility] Comment on above: Order Comment: Speci men Type: BLOOD SPECIMENOrdering Facility: [facility] Address: [address] [place] [address] Performed By: #### 5 8410-2 ####[facility][1] LABORATORYCLIA [id number] [address] [place] Hematocrit (Bld) [Volume fraction] 26.2 % Low 39.0-51.0 [facility] Comment on above: Order Comment: Speci men Type: BLOOD SPECIMENOrdering Facility: [facility] Address: [address] [place] [address] Performed By: #### 5 8410-2 ####[facility][1] LABORATORYCLIA [id number] [address] [place] Hemoglobin (Bld) [Mass/Vol] 8.4 g/dL Low 13.0-17.0 [facility] Comment on above: Order Comment: Speci men Type: BLOOD SPECIMENOrdering Facility: [facility] Address: [address] [place] [address] Performed By: #### 5 8410-2 ####[facility][1] LABORATORYCLIA [id number] [address] MCH (RBC) [Entitic mass] 30.1 pg Normal 26.0-34.0 [facility] Comment on above: Order Comment: Speci men Type: BLOOD SPECIMENOrdering Facility: [facility] Address: [address] [place] [address] Performed By: #### 5 8410-2 ####[facility][1] LABORATORYCLIA [id number] [address] MCHC (RBC) [Mass/Vol] 32.1 g/dL Normal 30.5-36.0 [facility] Comment on above: Order Comment: Speci men Type: BLOOD SPECIMENOrdering Facility: [facility] Address: [address] [place] [address] Performed By: #### 5 8410-2 ####[facility][1] LABORATORYCLIA [id number] [address] MCV (RBC) [Entitic vol] 93.9 fL Normal 80.0-100.0 [facility] Comment on above: Order Comment: Speci men Type: BLOOD SPECIMENOrdering Facility: [facility] Address: [address] [place] [address] Performed By: #### 5 8410-2 ####[facility][1] LABORATORYCLIA [id number] [address] Nucleated RBC (Bld) [#/Vol] 10*3/uL Normal <0.01 [facility] Comment on above: Order Comment: Speci men Type: BLOOD SPECIMENOrdering Facility: [facility] Address: [address] [place] [address] Performed By: #### 5 8410-2 ####[facility][1] LABORATORYCLIA [id number] [address] [place] Platelet mean volume (Bld) [Entitic vol] 8.8 fL Low 9.0-12.7 [facility] Comment on above: Order Comment: Speci men Type: BLOOD SPECIMENOrdering Facility: [facility] Address: [address] [place] [address] Performed By: #### 5 8410-2 ####[facility][1] LABORATORYCLIA [id number] [place] [address] [place] Platelets (Bld) [#/Vol] 131 10*3/uL Low 150-400 [facility] Comment on above: Order Comment: Speci men Type: BLOOD SPECIMENOrdering Facility: [facility] Address: [address] [place] [address] Performed By: #### 5 8410-2 ####[facility][1] LABORATORYCLIA [id number] [place] [address] [place] RBC (Bld) [#/Vol] 2.79 10*6/uL Low 4.20-6.00 [facility] Comment on above: Order Comment: Speci men Type: BLOOD SPECIMENOrdering Facility: [facility] Address: [address] [place] [address] Performed By: #### 5 8410-2 ####[facility][1] LABORATORYCLIA [id number] [address] [place] WBC (Bld) [#/Vol] 6.39 10*3/uL Normal 3.70-11.00 [facility] Comment on above: Order Comment: Speci men Type: BLOOD SPECIMENOrdering Facility: [facility] Address: [address] [place] [address] Performed By: #### 5 8410-2 ####[facility][1] LABORATORYCLIA [id number] [address] [place] CONSULT PROGon 11-09-2024 CONSULT PROG Normal [facility] CONSULT PROG Normal [facility] Hgb Bld-mCncon 11-09-2024 Hemoglobin (Bld) [Mass/Vol] 9.1 g/dL Low 13.0-17.0 [facility] Comment on above: Order Comment: Speci men Type: BLOOD SPECIMENOrdering Facility: [facility] Address: [address] [place] [address] Performed By: #### 7 18-7 ####[facility][1] LABORATORYCLIA [id number] [place] [id number] [place] OF [facility] Hemoglobin (Bld) [Mass/Vol] 8.2 g/dL Low 13.0-17.0 [facility] Comment on above: Order Comment: Speci men Type: BLOOD SPECIMENOrdering Facility: [facility] Address: [address] [place] [address] Performed By: #### 7 18-7 ####[facility][1] LABORATORYCLIA [id number] [place] [id number] [place] NURSING PROGon 11-09-2024 NURSING PROG Normal [facility] Urine Cultureon 11-09-2024 URC Below infection leve l. Mixed Gram Positive Organisms Sheridan Count <1000 MIXC Mixed contaminants. Submit a new specimen if indicated. Normal [facility] Comment on above: Performed By: #### M 100.2200 ####[facility] [address] [place], [place], [address] Vancomycin random [Mass/Vol] on 11-09-2024 Vancomycin [Mass/Vol] 8.4 ug/mL Low 10.0-20.0 [facility] Comment on above: Order Comment: Speci men Type: BLOOD SPECIMENOrdering Facility: [facility] Address: [address] [place], [place] [address] Result Comment: Refe rence ranges and high/low indicator flags are provided as general guidelines only. The treating physician must determine appropriate target levels/dosing based on the specific clinical situation. Performed By: #### 4 091-5 ####[facility][1] LABORATORYCLIA [id number] [place] [id number] [place] Basic metabolic 2000 panelon 11-08-2024 Anion gap [Moles/Vol] 12 mmol/L Normal 8-15 [facility] Comment on above: Order Comment: Speci men Type: BLOOD SPECIMENOrdering Facility: [facility] Address: [address] [place] [address] Performed By: #### 2 4321-2 ####[facility] LABORATORYCLIA [id number] [place] [address] [place] Calcium [Mass/Vol] 8.1 mg/dL Low 8.5-10.2 [facility] Comment on above: Order Comment: Speci men Type: BLOOD SPECIMENOrdering Facility: [facility] Address: [address] [place] [address] Performed By: #### 2 4321-2 ####[facility] LABORATORYCLIA [id number] [place] [address] [place] Chloride [Moles/Vol] 105 mmol/L Normal 98-107 [facility] Comment on above: Order Comment: Speci men Type: BLOOD SPECIMENOrdering Facility: [facility] Address: [address] [place] [address] Performed By: #### 2 4321-2 ####[facility][1] LABORATORYCLIA [id number] [place] [address] [place] CO2 [Moles/Vol] 22 mmol/L Normal 22-30 [facility] Comment on above: Order Comment: Speci men Type: BLOOD SPECIMENOrdering Facility: [facility] Address: [address] [place] [address] Performed By: #### 2 4321-2 ####[facility] LABORATORYCLIA [id number] [place] [address] [place] Creatinine [Mass/Vol] 1.89 mg/dL High 0.73-1.22 [facility] Comment on above: Order Comment: Speci men Type: BLOOD SPECIMENOrdering Facility: [facility] Address: [address] [place] [address] Performed By: #### 2 4321-2 ####[facility] LABORATORYCLIA [id number] [place] [address] [place] eGFRcr SerPlBld CKD-EPI 2020 37 mL/min/1.73m??? Low >=60 [facility] Comment on above: Order Comment: Raul hutson Type: BLOOD SPECIMENOrdering Facility: [facility] Address: [address] [place] [address] Result Comment: Amy mated Glomerular Filtration Rate [...] actual GFR. Performed By: #### 2 4321-2 ####[facility][1] LABORATORYCLIA [id number] [place] [address] [place] Glucose [Mass/Vol] 94 mg/dL Normal 74-99 [facility] Comment on above: Order Comment: Raul hutson Type: BLOOD SPECIMENOrdering Facility: [facility] Address: [address] [place] [address] Result Comment: The [place] [employer] (ADA) provides guidance for cutoff values for fasting glucose and random glucose. The ADA defines fasting as no caloric intake for at least 8 hours. Fasting plasma glucose results between 100 to 125 mg/dL indicate increased risk for diabetes (prediabetes).Fasting plasma glucose results greater than or equal to 126 mg/dL meet the criteria for diagnosis of diabetes. In the absence of unequivocal hyperglycemia, results should be confirmed by repeat testing. In a patient with classic symptoms of hyperglycemia or hyperglycemic crisis, random plasma glucose results greater than or equal to 200 mg/dL meet the criteria for diagnosis of diabetes.Reference: Standards of Medical Care in Diabetes 2016, [place] [employer]. Diabetes Care. 2016.39(Suppl 1). Performed By: #### 2 4321-2 ####[facility][1] LABORATORYCLIA [id number] [place] [address] [place] Potassium [Moles/Vol] 4.7 mmol/L Normal 3.7-5.1 [facility] Comment on above: Order Comment: Speci men Type: BLOOD SPECIMENOrdering Facility: [facility] Address: [address] [place] [address] Performed By: #### 2 4321-2 ####[facility][1] LABORATORYCLIA [id number] [place] [id number] [place] [facility] Sodium [Moles/Vol] 139 mmol/L Normal 136-144 [facility] Comment on above: Order Comment: Speci men Type: BLOOD SPECIMENOrdering Facility: [facility] Address: [address] [place] [address] Performed By: #### 2 4321-2 ####[facility][1] LABORATORYCLIA [id number] [place] [id number] [place] Urea nitrogen [Mass/Vol] 50 mg/dL High 9-24 [facility] Comment on above: Order Comment: Speci men Type: BLOOD SPECIMENOrdering Facility: [facility] Address: [address] [place] [address] Performed By: #### 2 4321-2 ####[facility][1] LABORATORYCLIA [id number] [address] [place] CASE MGT INIT ASSESon 2024 CASE MGT INIT ASSES Normal [facility] CBC W/Diff, Automatedon 10-0 Absolute Neut Normal 2.0-7.7 [facility] Comment on above: Result Comment: Canc elled via OM: Order cancelled - Patient discharged Performed By: #### L 100.0100 ####[facility] [address] [place], [place], [id number] HCT Normal 40-54 [facility] Comment on above: Result Comment: Canc elled via OM: Order cancelled - Patient discharged Performed By: #### L 100.0100 ####[facility] [address] [place], [place], [id number] HGB Normal 13.0-16.5 [facility] Comment on above: Result Comment: Canc elled via OM: Order cancelled - Patient discharged Performed By: #### L 100.0100 ####[facility] [address] [place], [address] MCH Normal 27.0-32.0 [facility] Comment on above: Result Comment: Canc elled via OM: Order cancelled - Patient discharged Performed By: #### L 100.0100 ####[facility] [address] [place], [address] MCHC Normal 32-36 [facility] Comment on above: Result Comment: Canc elled via OM: Order cancelled - Patient discharged Performed By: #### L 100.0100 ####[facility] [address] [place], [address] MCV Normal 80-94 [facility] Comment on above: Result Comment: Canc elled via OM: Order cancelled - Patient discharged Performed By: #### L 100.0100 ####[facility] [address] [place], [address] NEUT% Normal 47-70 [facility] Comment on above: Result Comment: Canc elled via OM: Order cancelled - Patient discharged Performed By: #### L 100.0100 ####[facility] [address] [place], [address] PLT Normal 150-450 [facility] Comment on above: Result Comment: Canc elled via OM: Order cancelled - Patient discharged Performed By: #### L 100.0100 ####[facility] [address] [place], [address] RBC Normal 4.6-6.2 [facility] Comment on above: Result Comment: Canc elled via OM: Order cancelled - Patient discharged Performed By: #### L 100.0100 ####[facility] [address] [place], [address] RDW CV Normal 11.6-14.6 [facility] Comment on above: Result Comment: Canc elled via OM: Order cancelled - Patient discharged Performed By: #### L 100.0100 ####[facility] [address] [place], [address] RDW SD Normal 35.1-43.9 [facility] Comment on above: Result Comment: Canc elled via OM: Order cancelled - Patient discharged Performed By: #### L 100.0100 ####[facility] [address] [place], [address] WBC Normal 4.4-11.0 [facility] Comment on above: Result Comment: Canc elled via OM: Order cancelled - Patient discharged Performed By: #### L 100.0100 ####[facility] [address] [place], [address] CBC panel Auto (Bld)on 11-08 Erythrocyte distribution width (RBC) [Ratio] 15.9 % High 11.5-15.0 [facility] Comment on above: Order Comment: Speci men Type: BLOOD SPECIMENOrdering Facility: [facility] Address: [address] [place] [address] Performed By: #### 5 8410-2 ####[facility][1] LABORATORYCLIA [id number] [address] [place] Hematocrit (Bld) [Volume fraction] 30.0 % Low 39.0-51.0 [facility] Comment on above: Order Comment: Speci men Type: BLOOD SPECIMENOrdering Facility: [facility] Address: [address] [place] [address] Performed By: #### 5 8410-2 ####[facility][1] LABORATORYCLIA [id number] [place] [id number] [place] Hemoglobin (Bld) [Mass/Vol] 9.9 g/dL Low 13.0-17.0 [facility] Comment on above: Order Comment: Speci men Type: BLOOD SPECIMENOrdering Facility: [facility] Address: [address] [place] [address] Performed By: #### 5 8410-2 ####[facility][1] LABORATORYCLIA [id number] [address] MCH (RBC) [Entitic mass] 31.0 pg Normal 26.0-34.0 [facility] Comment on above: Order Comment: Speci men Type: BLOOD SPECIMENOrdering Facility: [facility] Address: [address] [place] [address] Performed By: #### 5 8410-2 ####[facility][1] LABORATORYCLIA [id number] [address] [facility] MCHC (RBC) [Mass/Vol] 33.0 g/dL Normal 30.5-36.0 [facility] Comment on above: Order Comment: Speci men Type: BLOOD SPECIMENOrdering Facility: [facility] Address: [address] [place] [address] Performed By: #### 5 8410-2 ####[facility][1] LABORATORYCLIA [id number] [address] MCV (RBC) [Entitic vol] 94.0 fL Normal 80.0-100.0 [facility] Comment on above: Order Comment: Speci men Type: BLOOD SPECIMENOrdering Facility: [facility] Address: [address] [place] [address] Performed By: #### 5 8410-2 ####[facility][1] LABORATORYCLIA [id number] [address] Nucleated RBC (Bld) [#/Vol] 10*3/uL Normal <0.01 [facility] Comment on above: Order Comment: Speci men Type: BLOOD SPECIMENOrdering Facility: [facility] Address: [address] [place] [address] Performed By: #### 5 8410-2 ####[facility][1] LABORATORYCLIA [id number] [address] [place] Platelet mean volume (Bld) [Entitic vol] 9.2 fL Normal 9.0-12.7 [facility] Comment on above: Order Comment: Speci men Type: BLOOD SPECIMENOrdering Facility: [facility] Address: [address] [place] [address] Performed By: #### 5 8410-2 ####[facility][1] LABORATORYCLIA [id number] [address] [facility] Platelets (Bld) [#/Vol] 141 10*3/uL Low 150-400 [facility] Comment on above: Order Comment: Speci men Type: BLOOD SPECIMENOrdering Facility: [facility] Address: [address] [place] [address] Performed By: #### 5 8410-2 ####[facility][1] LABORATORYCLIA [id number] [address] [place] RBC (Bld) [#/Vol] 3.19 10*6/uL Low 4.20-6.00 [facility] Comment on above: Order Comment: Speci men Type: BLOOD SPECIMENOrdering Facility: [facility] Address: [address] [place] [address] Performed By: #### 5 8410-2 ####[facility][1] LABORATORYCLIA [id number] [address] WBC (Bld) [#/Vol] 10.05 10*3/uL Normal 3.70-11.00 [facility] Comment on above: Order Comment: Speci men Type: BLOOD SPECIMENOrdering Facility: [facility] Address: [address] [place] [address] Performed By: #### 5 8410-2 ####[facility][1] LABORATORYCLIA [id number] [address] [place] Erythrocyte distribution width (RBC) [Ratio] 15.7 % High 11.5-15.0 [facility] Comment on above: Order Comment: Speci men Type: BLOOD SPECIMENOrdering Facility: [facility] Address: [address] [place] [address] Performed By: #### 5 8410-2 ####[facility][1] LABORATORYCLIA [id number] [address] Hematocrit (Bld) [Volume fraction] 32.6 % Low 39.0-51.0 [facility] Comment on above: Order Comment: Speci men Type: BLOOD SPECIMENOrdering Facility: [facility] Address: [address] [place] [address] Performed By: #### 5 8410-2 ####[facility][1] LABORATORYCLIA [id number] [address] [facility] Hemoglobin (Bld) [Mass/Vol] 10.4 g/dL Low 13.0-17.0 [facility] Comment on above: Order Comment: Speci men Type: BLOOD SPECIMENOrdering Facility: [facility] Address: [address] [place] [address] Performed By: #### 5 8410-2 ####[facility][1] LABORATORYCLIA [id number] [address] [place] [facility] MCH (RBC) [Entitic mass] 30.3 pg Normal 26.0-34.0 [facility] Comment on above: Order Comment: Speci men Type: BLOOD SPECIMENOrdering Facility: [facility] Address: [address] [place] [address] Performed By: #### 5 8410-2 ####[facility][1] LABORATORYCLIA [id number] [address] [place] MCHC (RBC) [Mass/Vol] 31.9 g/dL Normal 30.5-36.0 [facility] Comment on above: Order Comment: Speci men Type: BLOOD SPECIMENOrdering Facility: [facility] Address: [address] [place] [address] Performed By: #### 5 8410-2 ####[facility][1] LABORATORYCLIA [id number] [address] MCV (RBC) [Entitic vol] 95.0 fL Normal 80.0-100.0 [facility] Comment on above: Order Comment: Speci men Type: BLOOD SPECIMENOrdering Facility: [facility] Address: [address] [place] [address] Performed By: #### 5 8410-2 ####[facility][1] LABORATORYCLIA [id number] [address] [place] Nucleated RBC (Bld) [#/Vol] 10*3/uL Normal <0.01 [facility] Comment on above: Order Comment: Speci men Type: BLOOD SPECIMENOrdering Facility: [facility] Address: [facility] [place] [address] Performed By: #### 5 8410-2 ####[facility][1] LABORATORYCLIA [id number] [address] [place] Platelet mean volume (Bld) [Entitic vol] 8.9 fL Low 9.0-12.7 [facility] Comment on above: Order Comment: Speci men Type: BLOOD SPECIMENOrdering Facility: [facility] Address: [address] [place] [address] Performed By: #### 5 8410-2 ####[facility][1] LABORATORYCLIA [id number] [address] [place] Platelets (Bld) [#/Vol] 151 10*3/uL Normal 150-400 [facility] Comment on above: Order Comment: Speci men Type: BLOOD SPECIMENOrdering Facility: [facility] Address: [address] [place] [address] Performed By: #### 5 8410-2 ####[facility][1] LABORATORYCLIA [id number] [place] [address] [place] RBC (Bld) [#/Vol] 3.43 10*6/uL Low 4.20-6.00 [facility] Comment on above: Order Comment: Speci men Type: BLOOD SPECIMENOrdering Facility: [facility] Address: [address] [place] [address] Performed By: #### 5 8410-2 ####[facility][1] LABORATORYCLIA [id number] [address] [place] WBC (Bld) [#/Vol] 12.28 10*3/uL High 3.70-11.00 [facility] Comment on above: Order Comment: Speci men Type: BLOOD SPECIMENOrdering Facility: [facility] Address: [address] [place] [id number] Performed By: #### 5 8410-2 ####[facility][1] LABORATORYCLIA [id number] [place] [address] [place] [facility] CNCRITCRon 11-08-2024 [facility]p ort (CCT) ABELARDO IVORY ([id number]) 1950 M Date Time Provider Department 11/08/24 ABIDA BERRY CCT During your visit today, we recorded the following information about you: Abida Berry APRN.TIN STACKER 11/08/2024 2:49 AM Addendum Critical Care Transport Note Patient Name: Abelardo Ivory Service Date: 11/07/2024 Referring Physician: Jasmyne Accepting Physician: Yakov Referring Facility: [facility] Accepting Facility: [facility] SUBJECTIVE/CHIEF COMPLAINT: GI Bleed REASON FOR TRANSPORT: [...] treatment for bladder CA who presented to [place] [facility] with c/o bright red bloody stool. [...] physician managing the patient requested transfer to [facility] for tertiary and/or quaternary services unavailable at the referring facility. Patient condition at time of exam was: Acutely ill and critically ill. Due to the unique circumstances of the patient, it was determined that this was the closest, most appropriate facility by referring physician. The physician managing the patient requested the [facility] Critical Care Transport Team transport and treat the patient for the purpose of tertiary care, evaluation, and management of his critical condition(s). Air medical transport was requested to reduce the qhx-py-ykcgllgw time, 17 minutes by air vs. approximately [...] SURGICAL HISTORY OF 12/28/2021 AAA repair - "Stable status post graft repair of abdominal aortic aneurysm." PAST SURGICAL HISTORY OF 2024 Hernia repair [...] 5 mg by mouth once daily.Disp: Rfl: isfcnajeeuh-niwgdvjrh-s ilanter (TRELEGY ELLIPTA) 200-62.5-25 mcg inhalation powderInhale 1 puff as instructed once daily.Disp: Rfl: acetaminophen (TYLENOL) 325 mg tabletTake 2 tablets by mouth every 4 hours.Disp: Rfl: rosuvastatin (CRESTOR) 5 mg tabletTake 5 mg by mouth daily at bedtime.Disp: Rfl: aspirin 81 mg chewable tabletTake 1 tablet by mouth on (more content not included)... [facility] CONSULTon 11-08-2024 CONSULT Normal [facility] CONSULT PROGon 11-08-2024 CONSULT PROG Normal [facility] CONSULT PROG Normal [facility] Calcium.ionized [Moles/Vol]o n 11-08-2024 Calcium.ionized (BldV) [Mass/Vol] 1.10 mmol/L Normal 1.08-1.30 [facility] Comment on above: Order Comment: Raul hutson Type: BLOOD SPECIMENOrdering Facility: [facility] Address: [address] [place] [address] Performed By: #### 1 995-0 ####[facility][1] LABORATORYCLIA [id number] [place] [address] [place] Calcium.ionized adjusted to pH 7.4 (Bld) [Moles/Vol] 1.02 mmol/L Low 1.08-1.30 [facility] Comment on above: Order Comment: Raul hutson Type: BLOOD SPECIMENOrdering Facility: [facility] Address: [address] [place] [address] Performed By: #### 1 995-0 ####[facility][1] LABORATORYCLIA [id number] [place] [address] [place] OF [facility] Comprehensive Metabolic Prof ilkenny 11-08-2024 ALB Normal 3.4-4.8 [facility] Comment on above: Result Comment: Canc elled via OM: Order cancelled - Patient discharged Performed By: #### L 500.4050 ####[facility] [address] [place], [address] ALK PHOS Normal 40-129 [facility] Comment on above: Result Comment: Canc elled via OM: Order cancelled - Patient discharged Performed By: #### L 500.4050 ####[facility] [address] [place], [address] ALT Normal <=46 [facility] Comment on above: Result Comment: Canc elled via OM: Order cancelled - Patient discharged Performed By: #### L 500.4050 ####[facility] [address] [place], [address] AST Normal <=37 [facility] Comment on above: Result Comment: Canc elled via OM: Order cancelled - Patient discharged Performed By: #### L 500.4050 ####[facility] [address] [place], [address] BUN Normal 4-19 [facility] Comment on above: Result Comment: Canc elled via OM: Order cancelled - Patient discharged Performed By: #### L 500.4050 ####[facility] [address] [place], [address] BUN/CRE Normal 10-20 [facility] Comment on above: Result Comment: Canc elled via OM: Order cancelled - Patient discharged Performed By: #### L 500.4050 ####[facility] [address] [place], [address] Calcium Normal 7.6-11.0 [facility] Comment on above: Result Comment: Canc elled via OM: Order cancelled - Patient discharged Performed By: #### L 500.4050 ####[facility] [address] [place], [address] CL Normal 98-108 [facility] Comment on above: Result Comment: Canc elled via OM: Order cancelled - Patient discharged Performed By: #### L 500.4050 ####[facility] [address] [place], [address] CO2 Normal 21.0-32.0 [facility] Comment on above: Result Comment: Canc elled via OM: Order cancelled - Patient discharged Performed By: #### L 500.4050 ####[facility] [address] [place], [address] CREAT,SERUM Normal 0.70-1.20 [facility] Comment on above: Result Comment: Canc elled via OM: Order cancelled - Patient discharged Performed By: #### L 500.4050 ####[facility] [address] [place], [address] eGFR Normal >60 [facility] Comment on above: Result Comment: Canc elled via OM: Order cancelled - Patient discharged Performed By: #### L 500.4050 ####[facility] [address] [place], [address] GAP Normal 5-15 [facility] Comment on above: Result Comment: Canc elled via OM: Order cancelled - Patient discharged Performed By: #### L 500.4050 ####[facility] [address] [place], [address] GLU Normal 70-99 [facility] Comment on above: Result Comment: Canc elled via OM: Order cancelled - Patient discharged Performed By: #### L 500.4050 ####[facility] [address] [place], [address] Potassium Normal 3.3-5.1 [facility] Comment on above: Result Comment: Canc elled via OM: Order cancelled - Patient discharged Performed By: #### L 500.4050 ####[facility] [address] [place], [address] T BILI Normal 0.00-1.30 [facility] Comment on above: Result Comment: Canc elled via OM: Order cancelled - Patient discharged Performed By: #### L 500.4050 ####[facility] [address] [place], [address] T PROT Normal 5.9-8.4 [facility] Comment on above: Result Comment: Canc elled via OM: Order cancelled - Patient discharged Performed By: #### L 500.4050 ####[facility] [address] [place], [address] Comprehensive Metabolic Profil Normal 133-145 [facility] Comment on above: Result Comment: Canc elled via OM: Order cancelled - Patient discharged Performed By: #### L 500.4050 ####[facility] [address] [place], [address] Comprehensive metabolic 2000 panelon 11-08-2024 Albumin [Mass/Vol] 3.2 g/dL Low 3.9-4.9 [facility] Comment on above: Order Comment: Speci men Type: BLOOD SPECIMENOrdering Facility: [facility] Address: [address] [place] [address] Performed By: #### 2 4323-8, 2777-1, 91445-1 ####[facility][1] LABORATORYCLIA [id number] [place] [address] [place] ALP [Catalytic activity/Vol] 60 U/L Normal 38-113 [facility] Comment on above: Order Comment: Speci men Type: BLOOD SPECIMENOrdering Facility: [facility] Address: [address] [place] [address] Performed By: #### 2 4323-8, 27708-07, ####[facility][1] LABORATORYCLIA [id number] [place], [place] [address] [place] [address] [place] [address] [facility] ALT With P-5'-P [Catalytic activity/Vol] 9 U/L Low 10-54 [facility] Comment on above: Order Comment: Speci men Type: BLOOD SPECIMENOrdering Facility: [facility] Address: [address] [place] [address] Performed By: #### 2 4323-8, 2776-02, ####[facility][1] LABORATORYCLIA [id number] [address] OF [facility] Anion gap [Moles/Vol] 11 mmol/L Normal 8-15 [facility] Comment on above: Order Comment: Speci men Type: BLOOD SPECIMENOrdering Facility: [facility] Address: [address] [place] [address] Performed By: #### 2 4323-8, 2776-02, ####[facility][1] LABORATORYCLIA [id number] [address] OF [facility] AST With P-5'-P [Catalytic activity/Vol] 15 U/L Normal 14-40 [facility] Comment on above: Order Comment: Speci men Type: BLOOD SPECIMENOrdering Facility: [facility] Address: [address] [place] [address] Performed By: #### 2 4323-8, 2776-02, ####[facility][1] LABORATORYCLIA [id number] [address] OF [facility] Bilirubin [Mass/Vol] 0.3 mg/dL Normal 0.2-1.3 [facility] Comment on above: Order Comment: Speci men Type: BLOOD SPECIMENOrdering Facility: [facility] Address: [address] [place] [address] Performed By: #### 2 4323-8, 27708-07, ####[facility][1] LABORATORYCLIA [id number] [place] [address] [place] Calcium [Mass/Vol] 7.9 mg/dL Low 8.5-10.2 [facility] Comment on above: Order Comment: Speci men Type: BLOOD SPECIMENOrdering Facility: [facility] Address: [address] [place] [address] Performed By: #### 2 4323-8, 2776-02, ####[facility][1] LABORATORYCLIA [id number] [place] [address] [place] Chloride [Moles/Vol] 106 mmol/L Normal 98-107 [facility] Comment on above: Order Comment: Speci men Type: BLOOD SPECIMENOrdering Facility: [facility] Address: [address] [place] [address] Performed By: #### 2 4323-8, 2776-02, ####[facility][1] LABORATORYCLIA [id number] [place] [address] [place] CO2 [Moles/Vol] 22 mmol/L Normal 22-30 [facility] Comment on above: Order Comment: Speci men Type: BLOOD SPECIMENOrdering Facility: [facility] Address: [address] [place] [address] Performed By: #### 2 4323-8, 2776-02, ####[facility][1] LABORATORYCLIA [id number] [place] [address] [place] Creatinine [Mass/Vol] 1.94 mg/dL High 0.73-1.22 [facility] Comment on above: Order Comment: Speci men Type: BLOOD SPECIMENOrdering Facility: [facility] Address: [address] [place] [address] Performed By: #### 2 4323-8, 2776-02, ####[facility][1] LABORATORYCLIA [id number] [place] [address] [place] eGFRcr SerPlBld CKD-EPI 2020 36 mL/min/1.73m??? Low >=60 [facility] Comment on above: Order Comment: Speci men Type: BLOOD SPECIMENOrdering Facility: [facility] Address: [address] [place] [address] Result Comment: Amy mated Glomerular Filtration Rate [...] actual GFR. Performed By: #### 2 4323-8, 2777-1, ####[facility][1] LABORATORYCLIA [id number] [place] [address] [place] Glucose [Mass/Vol] 127 mg/dL High 74-99 [facility] Comment on above: Order Comment: Raul hutson Type: BLOOD SPECIMENOrdering Facility: [facility] Address: [address] [place] [address] Result Comment: The [place] [employer] (ADA) provides guidance for cutoff values for fasting glucose and random glucose. The ADA defines fasting as no caloric intake for at least 8 hours. Fasting plasma glucose results between 100 to 125 mg/dL indicate increased risk for diabetes (prediabetes).Fasting plasma glucose results greater than or equal to 126 mg/dL meet the criteria for diagnosis of diabetes. In the absence of unequivocal hyperglycemia, results should be confirmed by repeat testing. In a patient with classic symptoms of hyperglycemia or hyperglycemic crisis, random plasma glucose results greater than or equal to 200 mg/dL meet the criteria for diagnosis of diabetes.Reference: Standards of Medical Care in Diabetes 2016, [place] [employer]. Diabetes Care. 2016.39(Suppl 1). Performed By: #### 2 4323-8, 2777-1, ####[facility][1] LABORATORYCLIA [id number] [place] [id number] [place] Potassium [Moles/Vol] 5.4 mmol/L High 3.7-5.1 [facility] Comment on above: Order Comment: Raul hutson Type: BLOOD SPECIMENOrdering Facility: [facility] Address: [address] [place] [address] Performed By: #### 2 4323-8, 2777-1, ####[facility][1] LABORATORYCLIA [id number] [place] [address] [place] Protein [Mass/Vol] 5.3 g/dL Low 6.3-8.0 [facility] Comment on above: Order Comment: Speci men Type: BLOOD SPECIMENOrdering Facility: [facility] Address: [address] [place], [place] [address] Performed By: #### 2 4323-8, 27708-07, ####[facility][1] LABORATORYCLIA [id number] [place] [id number] [place] Sodium [Moles/Vol] 139 mmol/L Normal 136-144 [facility] Comment on above: Order Comment: Speci men Type: BLOOD SPECIMENOrdering Facility: [facility] Address: [address] [place], [place] [address] Performed By: #### 2 4323-8, 27708-07, ####[facility][1] LABORATORYCLIA [id number] [place] [address] [place] Urea nitrogen [Mass/Vol] 51 mg/dL High 9-24 [facility] Comment on above: Order Comment: Speci men Type: BLOOD SPECIMENOrdering Facility: [facility] Address: [address] [place], [place] [address] Performed By: #### 2 4323-8, 27708-07, ####[facility][1] LABORATORYCLIA [id number] [place] [id number] [place] ECG COMPLETEon 11-08-2024 ECG COMPLETE Normal [facility] HH, Hemoglobin AND Hematocri ton 11-08-2024 HCT Normal 40-54 [facility] Comment on above: Result Comment: Canc elled via OM: Order cancelled - Patient discharged Performed By: #### L 100.0600 ####[facility] [address] [place], [place], [address] HGB Normal 13.0-16.5 [facility] Comment on above: Result Comment: Canc elled via OM: Order cancelled - Patient discharged Performed By: #### L 100.0600 ####[facility] [address] [place], [address] HISTORY PHYSICALon HISTORY PHYSICAL Normal [facility] Hgb Bld-mCncon 11-08-2024 Hemoglobin (Bld) [Mass/Vol] 9.0 g/dL Low 13.0-17.0 [facility] Comment on above: Order Comment: Speci men Type: BLOOD SPECIMENOrdering Facility: [facility] Address: [address] [place] [address] Performed By: #### 7 18-7 ####[facility] [id number] [place] [address] [place] Hemoglobin (Bld) [Mass/Vol] 9.5 g/dL Low 13.0-17.0 [facility] Comment on above: Order Comment: Speci men Type: BLOOD SPECIMENOrdering Facility: [facility] Address: [address] [place] [address] Performed By: #### 7 18-7 ####[facility][1] LABORATORYCLIA [id number] [place] [address] [place] Lactate (Bld) [Moles/Vol]on 11-08-2024 Lactate [Moles/Vol] 1.1 mmol/L Normal 0.5-2.2 [facility] Comment on above: Order Comment: Speci men Type: BLOOD SPECIMENOrdering Facility: [facility] Address: [address] [place] [address] Performed By: #### 3 2693-4 ####[facility][1] LABORATORYCLIA [id number] [place] [address] [place] Magnesium SerPl-mCncon 11-08 Magnesium [Mass/Vol] 2.1 mg/dL Normal 1.7-2.3 [facility] Comment on above: Order Comment: Speci men Type: BLOOD SPECIMENOrdering Facility: [facility] Address: [address] [place] [address] Performed By: #### 2 4323-8, 2776-02, ####[facility]CLIA [id number] [address] [place] Phosphate SerPl-mCncon 11-08 Phosphate [Mass/Vol] 4.4 mg/dL Normal 2.7-4.8 [facility] Comment on above: Order Comment: Speci men Type: BLOOD SPECIMENOrdering Facility: [facility] Address: [address] [place] [address] Performed By: #### 2 4323-8, 2776-02, ####[facility]CLIA [id number] [address] OF [place] STAPHYLOCOCCUS AUREUS AND MR SA SCREEN, PCR, NASALon 11-08-2024 S. aureus and MRSA panel AMBER+probe (Nose) Not detected Normal Not Detected [facility] Comment on above: Order Comment: Speci men Type: SWABOrdering Facility: [facility] Address: [address] [place] [address] Performed By: #### S APCR ####[facility]POLISIA [id number] [address] [place] Urinalysis complete panel (U )on 11-08-2024 Bilirubin Ql (U) Negative Normal Negative [facility] Comment on above: Order Comment: Speci men Type: URINE SPECIMENOrdering Facility: [facility] Address: [address] [place] [address] Performed By: #### 2 4356-8 ####[facility][1] LABORATORYCLIA [id number] [address] [place] Clarity (Unsp spec) Clear Normal Clear [facility] Comment on above: Order Comment: Speci men Type: URINE SPECIMENOrdering Facility: [facility] Address: [address] [place] [address] Performed By: #### 2 4356-8 ####[facility][1] LABORATORYCLIA [id number] [address] STATES OF [facility] Color (U) Light Yellow Normal yellow [facility] Comment on above: Order Comment: Speci men Type: URINE SPECIMENOrdering Facility: [facility] Address: [address] [place] [address] Performed By: #### 2 4356-8 ####[facility][1] LABORATORYCLIA [id number] [address] Glucose Test strip (U) [Mass/Vol] Trace Normal Trace, Negative [facility] Comment on above: Order Comment: Speci men Type: URINE SPECIMENOrdering Facility: [facility] Address: [address] [place] [address] Performed By: #### 2 4356-8 ####[facility][1] LABORATORYCLIA [id number] [address] Hemoglobin Ql (U) 1+ Abnormal Negative, Trace [facility] Comment on above: Order Comment: Speci men Type: URINE SPECIMENOrdering Facility: [facility] Address: [address] [place] [address] Performed By: #### 2 4356-8 ####[facility][1] LABORATORYCLIA [id number] [address] Ketones Ql (U) Negative Normal Negative, Trace [facility] Comment on above: Order Comment: Speci men Type: URINE SPECIMENOrdering Facility: [facility] Address: [address] [place] [address] Performed By: #### 2 4356-8 ####[facility][1] LABORATORYCLIA [id number] [address] OF [place] Leukocyte esterase Test strip Ql (U) 250 Stef/uL Abnormal Negative, 25 Stef/uL [facility] Comment on above: Order Comment: Speci men Type: URINE SPECIMENOrdering Facility: [facility] Address: [address] [place] [address] Performed By: #### 2 4356-8 ####[facility][1] LABORATORYCLIA [id number] [place] [address] [place] Nitrite Ql (U) Negative Normal Negative [facility] Comment on above: Order Comment: Speci men Type: URINE SPECIMENOrdering Facility: [facility] Address: [address] [place] [address] Performed By: #### 2 4356-8 ####[facility][1] LABORATORYCLIA [id number] [place] [address] [place] pH (U) 6.0 [pH] Normal 5.0-8.0 [facility] Comment on above: Order Comment: Speci men Type: URINE SPECIMENOrdering Facility: [facility] Address: [address] [place] [address] Performed By: #### 2 4356-8 ####[facility]CLIA [id number] [address] [place] Protein (U) [Mass/Vol] 1+ Abnormal Trace , Negative [facility] Comment on above: Order Comment: Speci men Type: URINE SPECIMENOrdering Facility: [facility] Address: [address] [place] [address] Performed By: #### 2 4356-8 ####[facility][1] LABORATORYCLIA [id number] [place] [address] [place] RBC LM.HPF (Urine sed) [#/Area] 11-25 /HPF Abnormal 0-3 /HPF [facility] Comment on above: Order Comment: Speci men Type: URINE SPECIMENOrdering Facility: [facility] Address: [address] [place] [address] Performed By: #### 2 4356-8 ####[facility][1] LABORATORYCLIA [id number] [place] [address] [place] Specific gravity (U) [Rel density] 1.038 High 1.005-1.030 [facility] Comment on above: Order Comment: Speci men Type: URINE SPECIMENOrdering Facility: [facility] Address: [address] [place] [address] Performed By: #### 2 4356-8 ####[facility][1] LABORATORYCLIA [id number] [address] Urobilinogen Ql (U) Normal Normal Normal [facility] Comment on above: Order Comment: Speci men Type: URINE SPECIMENOrdering Facility: [facility] Address: [address] [place] [address] Performed By: #### 2 4356-8 ####[facility][1] LABORATORYCLIA [id number] [address] [place] WBC LM.HPF (Urine sed) [#/Area] /[HPF] Abnormal 0-5 /HPF [facility] Comment on above: Order Comment: Speci men Type: URINE SPECIMENOrdering Facility: [facility] Address: [address] [place] [address] Performed By: #### 2 4356-8 ####[facility][1] LABORATORYCLIA [id number] [address] OF [facility] 12 Lead EKGon 11-07-2024 12 Lead EKG Normal [facility] Absolute lymphocyte countOrd ered By: Raymond Anthony on 11-07-2024 Lymphocytes Auto (Unsp spec) [#/Vol] 0.78 10*3/uL Low 0.83-4.51 [facility] Absolute neutrophil countOrd ered By: Raymond Anthony on 11-07-2024 Neutrophils (Bld) [#/Vol] 6.9 10*3/uL 2.0-7.7 [facility] Activated partial thrombopla stin time (aPTT) in platelet poor plasma by coagulation aOrdered By: Con Pena on 11-07-2024 aPTT Coag (PPP) [Time] 26.5 s 24.1-36.2 [facility] Anion gap in Serum or Plasma Ordered By: Con Pena on 11-07-2024 Anion gap [Moles/Vol] 12 mmol/L 5-15 [facility] Automated lymphocyte count a s percentage of total leukocytesOrdered By: Raymond Anthony on 11-07-2024 Lymphocytes/100 WBC Auto (Unsp spec) 9.2 % Low 19-41 [facility] BLRBCon 11-07-2024 LRBC Normal Neg [facility] Comment on above: Result Comment: [id number] ON LRBC TRANSFUSED 11/07/24 [id number] ON LRBC TRANSFUSED 11/07/24 1913 Performed By: #### B TS, BLRBC ####[facility] [address] [place], [address] BRCon 11-07-2024 RC Normal [facility] Comment on above: Result Comment: [id number] AP RC [id number] AP RC READY Performed By: #### B RC ####[facility] [address] [place], [address] Result Comment: [id number] AP RC READY BUN/creatinine ratioOrdered By: Con Pena on 11-07-2024 Urea nitrogen/Creatinine [Mass ratio] 22.4 mg/mg High 10- [facility] Basophil percentageOrdered B y: Raymond Anthony on 11-07-2024 Basophils/100 WBC (Bld) 0.5 % 0-1 [facility] Bilirubin Test strip Ql (U)O rdered By: Con Pena on 11-07-2024 Bilirubin Ql (U) Negative Negative [facility] Bilirubin, totalOrdered By: Con Pena on 11-07-2024 Bilirubin [Mass/Vol] 0.15 mg/dL 0.00-1.30 [facility] CBC W/Diff, Automatedon 10-0 Absolute Lymph 0.78 X10 3/uL Low 0.83-4.51 [facility] Comment on above: Performed By: #### L 100.0100 ####[facility] [address] [place], [address] Absolute Neut 6.9 X10 3/uL Normal 2.0-7.7 [facility] Comment on above: Performed By: #### L 100.0100 ####[facility] [address] [place], [address] Basophils/100 WBC (Bld) 0.5 % Normal 0-1 [facility] Comment on above: Performed By: #### L 100.0100 ####[facility] [address] [place], [address] Eosinophils/100 WBC (Bld) 0.4 % Normal 0-5 [facility] Comment on above: Performed By: #### L 100.0100 ####[facility] [address] [place], [address] Erythrocyte distribution width (RBC) [Ratio] 15.3 % High 11.6-14.6 [facility] Comment on above: Performed By: #### L 100.0100 ####[facility] [address] [place], [address] Hematocrit (Bld) [Volume fraction] 33.7 % Low 40-54 [facility] Comment on above: Performed By: #### L 100.0100 ####[facility] [address] [place], [address] Hemoglobin (Bld) [Mass/Vol] 10.6 g/dL Low 13.0-16.5 [facility] Comment on above: Performed By: #### L 100.0100 ####[facility] [address] [place], [address] IG% 0.900 Normal 0.0-0.9 [facility] Comment on above: Result Comment: IG% - Immature Granulocytes (promyelocytes, myelocytes andmetamyelocytes) > 1% indicates that a LEFT SHIFT is Present. Performed By: #### L 100.0100 ####[facility] [address] [place], [address] Lymphocytes/100 WBC (Bld) 9.2 % Low 19-41 [facility] Comment on above: Performed By: #### L 100.0100 ####[facility] [address] [place], [address] MCH (RBC) [Entitic mass] 30.2 pg Normal 27.0-32.0 [facility] Comment on above: Performed By: #### L 100.0100 ####[facility] [address] [place], [address] MCHC (RBC) [Mass/Vol] 31.5 g/dL Low 32-36 [facility] Comment on above: Performed By: #### L 100.0100 ####[facility] [address] [place], [address] MCV (RBC) [Entitic vol] 96.0 fL High 80-94 [facility] Comment on above: Performed By: #### L 100.0100 ####[facility] [address] [place], [address] Monocytes/100 WBC (Bld) 8.1 % Normal 0-10 [facility] Comment on above: Performed By: #### L 100.0100 ####[facility] [address] [place], [address] Neutrophils/100 WBC (Bld) 80.9 % High 47-70 [facility] Comment on above: Performed By: #### L 100.0100 ####[facility] [address] [place], [address] Nucleated RBC (Bld) [#/Vol] 0 10*3/uL Normal 0-5 [facility] Comment on above: Performed By: #### L 100.0100 ####[facility] [address] [place], [address] Platelet mean volume (Bld) [Entitic vol] 8.9 fL Normal 6.2-12.0 [facility] Comment on above: Performed By: #### L 100.0100 ####[facility] [address] [place], [address] Platelets (Bld) [#/Vol] 156 10*3/uL Normal 150-450 [facility] Comment on above: Performed By: #### L 100.0100 ####[facility] [address] [place], [address] RBC (Bld) [#/Vol] 3.51 10*6/uL Low 4.6-6.2 [facility] Comment on above: Performed By: #### L 100.0100 ####[facility] [address] [place], [address] RDW SD 53.2 fl High 35.1-43.9 [facility] Comment on above: Performed By: #### L 100.0100 ####[facility] [address] [place], [address] WBC (Bld) [#/Vol] 8.5 10*3/uL Normal 4.4-11.0 [facility] Comment on above: Performed By: #### L 100.0100 ####[facility] [address] [place], [address] Absolute Lymph 1.27 X10 3/uL Normal 0.83-4.51 [facility] Comment on above: Performed By: #### L 501.2450, L100.0100, L503.6005, M100.7900, L500.4050 ####[facility] [address] [place], [address] Absolute Neut 8.2 X10 3/uL High 2.0-7.7 [facility] Comment on above: Performed By: #### L 501.2450, L100.0100, L503.6005, M100.7900, L500.4050 ####[facility] [address] [place], [address] Basophils/100 WBC (Bld) 0.6 % Normal 0-1 [facility] Comment on above: Performed By: #### L 501.2450, L100.0100, L503.6005, M100.7900, L500.4050 ####[facility] [address] [place], [address] Eosinophils/100 WBC (Bld) 1.1 % Normal 0-5 [facility] Comment on above: Performed By: #### L 501.2450, L100.0100, L503.6005, M100.7900, L500.4050 ####[facility] [address] [place], [address] Erythrocyte distribution width (RBC) [Ratio] 15.6 % High 11.6-14.6 [facility] Comment on above: Performed By: #### L 501.2450, L100.0100, L503.6005, M100.7900, L500.4050 ####[facility] [address] [place], [address] Hematocrit (Bld) [Volume fraction] 29.2 % Low 40-54 [facility] Comment on above: Performed By: #### L 501.2450, L100.0100, L503.6005, M100.7900, L500.4050 ####[facility] [address] [place], [address] Hemoglobin (Bld) [Mass/Vol] 9.1 g/dL Low 13.0-16.5 [facility] Comment on above: Performed By: #### L 501.2450, L100.0100, L503.6005, M100.7900, L500.4050 ####[facility] [address] [place], [address] IG% 0.700 Normal 0.0-0.9 [facility] Comment on above: Result Comment: IG% - Immature Granulocytes (promyelocytes, myelocytes andmetamyelocytes) > 1% indicates that a LEFT SHIFT is Present. Performed By: #### L 501.2450, L100.0100, L503.6005, M100.7900, L500.4050 ####[facility] [address] [place], [address] Lymphocytes/100 WBC (Bld) 11.8 % Low 19-41 [facility] Comment on above: Performed By: #### L 501.2450, L100.0100, L503.6005, M100.7900, L500.4050 ####[facility] [address] [place], [address] MCH (RBC) [Entitic mass] 30.2 pg Normal 27.0-32.0 [facility] Comment on above: Performed By: #### L 501.2450, L100.0100, L503.6005, M100.7900, L500.4050 ####[facility] [address] [place], [address] MCHC (RBC) [Mass/Vol] 31.2 g/dL Low 32-36 [facility] Comment on above: Performed By: #### L 501.2450, L100.0100, L503.6005, M100.7900, L500.4050 ####[facility] [address] [place], [address] MCV (RBC) [Entitic vol] 97.0 fL High 80-94 [facility] Comment on above: Performed By: #### L 501.2450, L100.0100, L503.6005, M100.7900, L500.4050 ####[facility] [address] [place], [address] Monocytes/100 WBC (Bld) 9.8 % Normal 0-10 [facility] Comment on above: Performed By: #### L 501.2450, L100.0100, L503.6005, M100.7900, L500.4050 ####[facility] [address] [place], [address] Neutrophils/100 WBC (Bld) 76.0 % High 47-70 [facility] Comment on above: Performed By: #### L 501.2450, L100.0100, L503.6005, M100.7900, L500.4050 ####[facility] [address] [place], [address] Nucleated RBC (Bld) [#/Vol] 0 10*3/uL Normal 0-5 [facility] Comment on above: Performed By: #### L 501.2450, L100.0100, L503.6005, M100.7900, L500.4050 ####[facility] [address] [place], [address] Platelet mean volume (Bld) [Entitic vol] 8.9 fL Normal 6.2-12.0 [facility] Comment on above: Performed By: #### L 501.2450, L100.0100, L503.6005, M100.7900, L500.4050 ####[facility] [address] [place], [address] Platelets (Bld) [#/Vol] 229 10*3/uL Normal 150-450 [facility] Comment on above: Performed By: #### L 501.2450, L100.0100, L503.6005, M100.7900, L500.4050 ####[facility] [address] [place], [address] RBC (Bld) [#/Vol] 3.01 10*6/uL Low 4.6-6.2 [facility] Comment on above: Performed By: #### L 501.2450, L100.0100, L503.6005, M100.7900, L500.4050 ####[facility] [address] [place], [address] RDW SD 55.2 fl High 35.1-43.9 [facility] Comment on above: Performed By: #### L 501.2450, L100.0100, L503.6005, M100.7900, L500.4050 ####[facility] [address] [place], [address] WBC (Bld) [#/Vol] 10.8 10*3/uL Normal 4.4-11.0 [facility] Comment on above: Performed By: #### L 501.2450, L100.0100, L503.6005, M100.7900, L500.4050 ####[facility] [address] [place], [address] [facility] Telephone (HEMAWS) ABELARDO IVORY ([id number]) 1950 M Date Time Provider Department 11/07/24 LAKEISHA DAWKINS HEMAWS During your visit today, we recorded the [...] day it is right now. SUDHA Hernández Amber, RN 11/08/2024 1:56 PM Addendum Care Coordination Triage Note [facility] [place] Situation: Patient reports Other blood in the stool, dysuria Background: Finished chemo 10/15. Assessment: Patient had a BM and noticed that he had bright red blood, mixed in with stool and on tissue paper. Patient stated, his BM was diarrhea "loose" and semi-solid consistency. Patient stated this is the first loose BM he has had recently. Denies straining with BM and denies pain with BM. Patient does not think he has hemorrhoids. Abdomen feels soft to patient, denies abdominal distention. Patient had abdominal cramps before BM today and stated he had a cramp on his right side for 1-2 days. Patient stated "I had a cramp on the right side of my stomach and if I bumped my rib cage on the right side, my ribs were tender". Patient denies any abdominal tenderness or pain today. Patient also denies having any additional BM's today. Patient stated he has pain with urinating that started [address] Banks prescribed Macrobid last week for a UTI which he finished. Patient stated "the pain is still there but it's not quite as bad". Patient also has urinary urgency but he feels this could be related to drinking "too much fluids". Denies dizziness with standing, hematuria, N/V, fever, chills, abdominal pain today, falls, or recent injuries. Patient stated he feels fine otherwise and feels he has a slight cold right now, he is "blowing my nose" a lot in the morning. Denies sinus pain/pressure or other URI symptoms. Still holding ASA 81 mg. Patient was asked to check his vitals but he was not at home; patient was doing his laundry at the [facility]. Recommendations: Per RNCC, patient directed to: [...] Advised ED evaluation. Patient will go to [facility] ED. 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 - cywspiqecdf-sohrqcise-w ilanter (TRELEGY ELLIPTA) 200-62.5-25 mcg inhalation powder [...] mL 1 (more content not included)... Normal [facility] CTA Abd/Pelvis W/WO Contrast on 11-07-2024 CTA Abd/Pelvis W/WO Contrast Normal [facility] Carbon dioxide, total [Moles /volume] in Central venous bloodOrdered By: Con Pena on 11-07-2024 CO2 [Moles/Vol] 22.6 mmol/L 21.0-32.0 [facility] Chest 1 View (Portable)on Chest 1 View (Portable) Normal [facility] Chloride assayOrdered By: Messi Pena on 11-07-2024 Chloride [Moles/Vol] 106 mmol/L 98-108 [facility] Colonoscopy Reporton 025 Colonoscopy Report Normal [facility] Comprehensive Metabolic Prof ilon 11-07-2024 Albumin [Mass/Vol] 3.3 g/dL Low 3.4-4.8 [facility] Comment on above: Performed By: #### L 501.2450, L100.0100, L503.6005, M100.7900, L500.4050 ####[facility] [address] [place], [address] Albumin/Globulin [Mass ratio] 1.4 {ratio} Normal 0.9-2.4 [facility] Comment on above: Performed By: #### L 501.2450, L100.0100, L503.6005, M100.7900, L500.4050 ####[facility] [address] [place], [address] ALK PHOS 68 U/L Normal 40-129 [facility] Comment on above: Performed By: #### L 501.2450, L100.0100, L503.6005, M100.7900, L500.4050 ####[facility] [address] [place], [address] ALT [Catalytic activity/Vol] 9 U/L Normal <=46 [facility] Comment on above: Performed By: #### L 501.2450, L100.0100, L503.6005, M100.7900, L500.4050 ####[facility] [address] [place], [address] AST [Catalytic activity/Vol] 14 U/L Normal <=37 [facility] Comment on above: Performed By: #### L 501.2450, L100.0100, L503.6005, M100.7900, L500.4050 ####[facility] [address] [place], [address] Bilirubin [Mass/Vol] 0.15 mg/dL Normal 0.00-1.30 [facility] Comment on above: Performed By: #### L 501.2450, L100.0100, L503.6005, M100.7900, L500.4050 ####[facility] [address] [place], [address] BUN/CRE 22.4 RATIO High 10-20 [facility] Comment on above: Performed By: #### L 501.2450, L100.0100, L503.6005, M100.7900, L500.4050 ####[facility] [address] [place], [address] Calcium [Mass/Vol] 8.3 mg/dL Normal 7.6-11.0 [facility] Comment on above: Performed By: #### L 501.2450, L100.0100, L503.6005, M100.7900, L500.4050 ####[facility] [address] [place], [address] Chloride [Moles/Vol] 106 mmol/L Normal 98-108 [facility] Comment on above: Performed By: #### L 501.2450, L100.0100, L503.6005, M100.7900, L500.4050 ####[facility] [address] [place], [address] CO2 [Moles/Vol] 22.6 mmol/L Normal 21.0-32.0 [facility] Comment on above: Performed By: #### L 501.2450, L100.0100, L503.6005, M100.7900, L500.4050 ####[facility] [address] [place], [address] Creatinine [Mass/Vol] 2.09 mg/dL High 0.70-1.20 [facility] Comment on above: Performed By: #### L 501.2450, L100.0100, L503.6005, M100.7900, L500.4050 ####[facility] [address] [place], [address] GAP 12 Normal 5-15 [facility] Comment on above: Performed By: #### L 501.2450, L100.0100, L503.6005, M100.7900, L500.4050 ####[facility] [address] [place], [address] GFR/1.73 sq M.predicted among non-blacks MDRD (S/P/Bld) [Vol rate/Area] 33 mL/min/{1.73_m2} Low >60 [facility] Comment on above: Result Comment: mL/m in/1.73m2 CKD-EPI Creatinine Equation (2020) Performed By: #### L 501.2450, L100.0100, L503.6005, M100.7900, L500.4050 ####[facility] [address] [place], [address] Globulin (S) [Mass/Vol] 2.4 g/dL Normal 2.2-4.2 [facility] Comment on above: Performed By: #### L 501.2450, L100.0100, L503.6005, M100.7900, L500.4050 ####[facility] [address] [place], [address] Glucose [Mass/Vol] 139 mg/dL High 70-99 [facility] Comment on above: Performed By: #### L 501.2450, L100.0100, L503.6005, M100.7900, L500.4050 ####[facility] [address] [place], [address] Potassium [Moles/Vol] 5.3 mmol/L High 3.3-5.1 [facility] Comment on above: Performed By: #### L 501.2450, L100.0100, L503.6005, M100.7900, L500.4050 ####[facility] [address] [place], [address] Sodium [Moles/Vol] 141 mmol/L Normal 133-145 [facility] Comment on above: Performed By: #### L 501.2450, L100.0100, L503.6005, M100.7900, L500.4050 ####[facility] [address] [place], [address] T PROT 5.7 g/dL Low 5.9-8.4 [facility] Comment on above: Performed By: #### L 501.2450, L100.0100, L503.6005, M100.7900, L500.4050 ####[facility] [address] [place], [address] Urea nitrogen [Mass/Vol] 47 mg/dL High 4-19 [facility] Comment on above: Performed By: #### L 501.2450, L100.0100, L503.6005, M100.7900, L500.4050 ####[facility] [address] [place], [address] EGD Reporton 11-07-2024 EGD Report Normal [facility] Emergency Department Summary on 11-07-2024 Emergency Department Summary Normal [facility] Eosinophil percentageOrdered By: Raymond Anthony on 11-07-2024 Eosinophils/100 WBC (Bld) 0.4 % 0-5 [facility] Erythrocyte distribution wid th ratioOrdered By: Raymond Anthony on 11-07-2024 Erythrocyte distribution width (RBC) [Ratio] 15.3 % High 11.6-14.6 [facility] Erythrocyte distribution wid th standard deviationOrdered By: Raymond Anthony on 11-07-2024 Erythrocyte distribution width (RBC) [Ratio] 53.2 fl High 35.1-43.9 [facility] Glomerular filtration rate ( GFR) estimation/1.73 sq m using serum, plasma, or whole bOrdered By: Con Pena on 11-07-2024 GFR/1.73 sq M.predicted among non-blacks MDRD (S/P/Bld) [Vol rate/Area] 33 mL/min/{1.73_m2} Low >60 [facility] Comment on above: mL/min/1.73m2 CKD-EP I Creatinine Equation (2020) H AND P Exam - [facility] 11-07-2024 H&P Exam - Hospitalist Normal [facility] HH, Hemoglobin AND Hematocri ton 11-07-2024 Hematocrit (Bld) [Volume fraction] 32.8 % Low 40-54 [facility] Comment on above: Performed By: #### L 100.0600 ####[facility] [address] [place], [address] Hemoglobin (Bld) [Mass/Vol] 10.4 g/dL Low 13.0-16.5 [facility] Comment on above: Performed By: #### L 100.0600 ####[facility] [address] [place], [address] Hematocrit Auto (Bld) [Volum e fraction]Ordered By: Suzanne Medley on 11-07-2024 Hematocrit (Bld) [Volume fraction] 32.8 % Low 40-54 [facility] Hemoglobinon 11-07-2024 Hemoglobin (Bld) [Mass/Vol] 7.8 g/dL Low 13.0-16.5 [facility] Comment on above: Performed By: #### L 100.1300 ####[facility] [address] [place], [place], [id number] Hemoglobin measurementOrdere d By: Suzanne Medley on 11-07-2024 Hemoglobin (Bld) [Mass/Vol] 10.4 g/dL Low 13.0-16.5 [facility] Immature granulocytes/100 WB C Auto (Bld)Ordered By: Raymond Anthony on 11-07-2024 Immature granulocytes/100 WBC (Bld) 0.900 % 0.0-0.9 [facility] Comment on above: IG% - Immature Granu locytes (promyelocytes, myelocytes and metamyelocytes) > 1% indicates that a LEFT SHIFT is Present. International normalized rat io (INR) calculationOrdered By: Con Pena on 11-07-2024 INR Coag (Bld) [Relative time] 1.1 {INR} [facility] Ketones Test strip Ql (U)Ord ered By: Con Pena on 11-07-2024 Ketones Ql (U) Negative Negative [facility] L501.4021on 11-07-2024 Trop T High Sen 16 ng/L Normal <=22 [facility] Comment on above: Performed By: #### L 501.4021 ####[facility] [address] [place], [place], [id number] Laboratory - Chemistry and C hemistry - challengeOrdered By: Con Pena on 11-07-2024 AST [Catalytic activity/Vol] 14 U/L <38 [facility] Lactic Acidon 11-07-2024 Lactate [Moles/Vol] 2.2 mmol/L Invalid Interpretation Code 0.0-2.0 [facility] Comment on above: Order Comment: Y Result Comment: Crit ical Result(s) Called ANA ROSA at: 1649 by:EARL??Results read back by same. Performed By: #### L 501.2450, L100.0100, L503.6005, M100.7900, L500.4050 ####[facility] [address] [place], [place], [id number] Lactic acid measurementOrder ed By: Con Pena on 11-07-2024 Lactate [Moles/Vol] 2.2 mmol/L Critically high 0.0-2.0 [facility] Comment on above: Critical Result(s) C alled ANA ROSA at: 1649 by: EARL Results read back by same. Lipaseon 11-07-2024 Lipase [Catalytic activity/Vol] 43 U/L Normal 13-75 [facility] Comment on above: Result Comment: Plea se note:LIPASE revised reference range effective 22.New Lipase methodology. Expected to produce lower valuesthan the previous assay method.NEW Reference Range: 13 - 75 U/L Performed By: #### L 501.2450, L100.0100, L503.6005, M100.7900, L500.4050 ####[facility] [address] [place], [address] Lipase measurementOrdered By : Con Pena on 11-07-2024 Lipase [Catalytic activity/Vol] 43 U/L 13-75 [facility] Comment on above: Please note:LIPASE r evised reference range effective 22. New Lipase methodology. Expected to produce lower values than the previous assay method. NEW Reference Range: 13 - 75 U/L MCV (mean corpuscular volume ) determinationOrdered By: Raymond Anthony on 11-07-2024 MCV (RBC) [Entitic vol] 96.0 fL High 80-94 [facility] MR/CON.PCM.GIon 11-07-2024 MR/CON.PCM.GI Normal [facility] MR/OP.PROVATon 11-07-2024 MR/OP.PROVAT Normal [facility] MR/OP.PROVAT Normal [facility] MR/POSTOP.ANEon 11-07-2024 MR/POSTOP.ANE Normal [facility] MR/RLFCVBFC8tx 11-07-2024 MR/POSTOPAN2 Normal [facility] Magnesiumon 11-07-2024 Magnesium [Mass/Vol] 2.1 mg/dL Normal 1.5-2.2 [facility] Comment on above: Order Comment: Comme nts: May add to ED labsComments: may add to ED labs Performed By: #### L 501.5200, L501.2300 ####[facility] [address] [place], [place], [id number] Magnesium measurement (mass/ volume)Ordered By: Suzanne Medley on 11-07-2024 Magnesium (Unsp spec) [Mass/Vol] 2.1 mg/dL 1.5-2.2 [facility] Mean corpuscular hemoglobin (MCH) determinationOrdered By: Raymond Anthony on 11-07-2024 MCH (RBC) [Entitic mass] 30.2 pg 27.0-32.0 [facility] Mean corpuscular hemoglobin concentration (MCHC) determinationOrdered By: Raymond Anthony on 11-07-2024 MCHC (RBC) [Mass/Vol] 31.5 g/dL Low 32-36 [facility] Mean platelet volume determi nationOrdered By: Raymond Anthony on 11-07-2024 Platelet mean volume (Bld) [Entitic vol] 8.9 fL 6.2-12.0 [facility] Microscopic analysis of urin e for red blood cells (RBC)Ordered By: Con Pena on 11-07-2024 Microscopic analysis of urine for red blood cells (RBC) 5-10 SEEN /hpf 0-5 [facility] Monocyte percentageOrdered B y: Raymond Anthony on 11-07-2024 Monocytes/100 WBC (Bld) 8.1 % 0-10 [facility] Mucus LM Ql (Urine sed)Order ed By: Con Pena on 11-07-2024 Mucus Ql (Urine sed) 0 SEEN /hpf [facility] Neutrophil percentageOrdered By: Raymond Anthony on 11-07-2024 Neutrophils/100 WBC (Bld) 80.9 % High 47-70 [facility] Nitrite Test strip Ql (U)Ord ered By: Con Pena on 11-07-2024 Nitrite Ql (U) Negative Negative [facility] No Panel InformationOrdered By: Con Pena on 11-07-2024 14 U/L <38 [facility] Nucleated red blood cell per centageOrdered By: Raymond Anthony on 11-07-2024 Nucleated RBC/100 WBC (Bld) [Ratio] 0 % 0-5 [facility] Partial Thromboplast Timeon 11-07-2024 aPTT Coag (Bld) [Time] 26.5 s Normal 24.1-36.2 [facility] Comment on above: Performed By: #### L 300.3900, L300.4310 ####[facility] [address] [place], [place], [address] Phosphoruson 11-07-2024 Phosphate [Mass/Vol] 4.5 mg/dL Normal 2.7-4.5 [facility] Comment on above: Order Comment: Comme nts: May add to ED labsComments: may add to ED labs Performed By: #### L 501.5200, L501.2300 ####[facility] [address] [place], [address] Platelet countOrdered By: Maged Anthony on 11-07-2024 Platelets (Bld) [#/Vol] 156 10*3/uL 150-450 [facility] Potassium measurement (mass/ volume)Ordered By: Con Pena on 11-07-2024 Potassium (Unsp spec) [Mass/Vol] 5.3 mmol/L High 3.3-5.1 [facility] Protein Test strip Ql (U)Ord ered By: Con Pena on 11-07-2024 Protein Ql (U) 100 mg/dl High Negative [facility] Prothrombin Time w/INRon INR Coag (PPP) [Relative time] 1.1 {INR} Normal [facility] Comment on above: Performed By: #### L 300.3900, L300.4310 ####[facility] [address] [place], [address] PT Coag (PPP) [Time] 14.5 s Normal 11.7-14.9 [facility] Comment on above: Performed By: #### L 300.3900, L300.4310 ####[facility] [address] [place], [address] Prothrombin timeOrdered By: Con Pena on 11-07-2024 PT Coag (PPP) [Time] 14.5 s 11.7-14.9 [facility] RBC Auto (Bld) [#/Vol]Ordere d By: Raymond Anthony on 11-07-2024 RBC (Bld) [#/Vol] 3.51 10*6/uL Low 4.6-6.2 [facility] Serum creatinine measurement (mass/volume)Ordered By: Con Pena on 11-07-2024 Creatinine [Mass/Vol] 2.09 mg/dL High 0.70-1.20 [facility] Serum globulin measurementOr dered By: Con Pena on 11-07-2024 Globulin (S) [Mass/Vol] 2.4 g/dL 2.2-4.2 [facility] Serum glucose measurement (m ass/volume)Ordered By: Con Pena on 11-07-2024 Glucose [Mass/Vol] 139 mg/dL High 70-99 [facility] Serum or plasma alanine perales otransferase (ALT) measurementOrdered By: Con Pena on 11-07-2024 ALT [Catalytic activity/Vol] 9 U/L <47 [facility] Serum or plasma albumin jamel urement (mass/volume)Ordered By: Con Rivers on 11-07-2024 Albumin [Mass/Vol] 3.3 g/dL Low 3.4-4.8 [facility] Serum or plasma albumin/glob ulin mass ratioOrdered By: Con Pena on 11-07-2024 Albumin/Globulin [Mass ratio] 1.4 {ratio} 0.9-2.4 [facility] Serum or plasma alkaline masha sphatase measurementOrdered By: Con Pnea on 11-07-2024 ALP [Catalytic activity/Vol] 68 U/L 40-129 [facility] Serum or plasma calcium jamel urement (mass/volume)Ordered By: Con Rivers on 11-07-2024 Calcium [Mass/Vol] 8.3 mg/dL 7.6-11.0 [facility] Serum or plasma urea nitroge n measurement (mass/volume)Ordered By: Con Pena on 11-07-2024 Urea nitrogen [Mass/Vol] 47 mg/dL High 4-19 [facility] Sodium levelOrdered By: Milan Pena on 11-07-2024 Sodium [Moles/Vol] 141 mmol/L 133-145 [facility] Squamous epithelial cells de tection in urine sediment by light microscopyOrdered By: Con Pena on 11-07-2024 Epithelial cells.squamous LM Ql (Urine sed) 0-5 SEEN /hpf 0-5 [facility] Stool Occult Blood iFOBon STOB Positive Normal [facility] Comment on above: Performed By: #### L 501.2450, L100.0100, L503.6005, M100.7900, L500.4050 ####[facility] [address] [place], [place], [id number] Stool gastrointestinal hemog lobin detection by immunologic methodOrdered By: Con Pena on 11-07-2024 Lower GI hemoglobin IA Ql (Stl) Positive Abnormal [facility] Total proteinOrdered By: Dereje Pena on 11-07-2024 Protein [Mass/Vol] 5.7 g/dL Low 5.9-8.4 [facility] Transitional cells detection in urine sediment by light microscopyOrdered By: Con Pena on 11-07-2024 Transitional cells LM Ql (Urine sed) 0-5 SEEN /hpf 0-5 [facility] Troponin T HS 2 HRon 025 Trop T High Sen Normal <=22 [facility] Comment on above: Result Comment: JUWAN ENT DISCHARGED Performed By: #### L 499.0042 ####[facility] [address] [place], [address] Troponin T.cardiac [Mass/vol ume] in Serum or Plasma by High sensitivity methodOrdered By: Con Pena on 11-07-2024 Troponin T.cardiac High sensitivity method [Mass/Vol] 16 ng/L <22 [facility] Type AND Screenon 11-07-2024 Ab SCREEN GEL Negative Normal [facility] Comment on above: Order Comment: HGI Performed By: #### B TS, BLRBC ####[facility] [address] [place], [address] Urinalysis, Completeon 11-07 EPI,SQUAMOUS 0-5 SEEN Normal 0-5 [facility] Comment on above: Order Comment: COLLE CTOR TO SPECIFY Performed By: #### L 400.0001 ####[facility] [address] [place], [address] BACTERIA 2+ /hpf Normal None Seen [facility] Comment on above: Order Comment: COLLE CTOR TO SPECIFY Performed By: #### L 400.0001 ####[facility] [address] [place], [address] RBC 5-10 SEEN Normal 0-5 [facility] [facility] Comment on above: Order Comment: COLLE CTOR TO SPECIFY Performed By: #### L 400.0001 ####[facility] [address] [place], [address] EPI,TRANSITION 0-5 SEEN Normal 0-5 [facility] Comment on above: Order Comment: COLLE CTOR TO SPECIFY Performed By: #### L 400.0001 ####[facility] [address] [place], [place], [id number] WBC >100 SEEN Normal 0-5 [facility] Comment on above: Order Comment: CARLOS CTOR TO SPECIFY Performed By: #### L 400.0001 ####[facility] [address] [place], [place], [id number] Mucus Ql (Urine sed) 0 SEEN Normal [facility] Comment on above: Order Comment: CARLOS CTOR TO SPECIFY Performed By: #### L 400.0001 ####[facility] [address] [place], [place], [phone] Urine clarityOrdered By: Dereje Pena on 11-07-2024 Clarity (U) Cloudy Clear [facility] Urine color determinationOrd ered By: Con Pena on 11-07-2024 Color (U) Straw Yellow [facility] Urine cultureOrdered By: Dereje Pena on 11-07-2024 Bacteria identified Cx Nom (U) Positive Abnormal [facility] Urine glucose detectionOrder ed By: Con Pena on 11-07-2024 Glucose Ql (U) Normal mg/dl Normal [facility] Urine leukocyte esterase det ection by dipstickOrdered By: Con Pena on 11-07-2024 Leukocyte esterase Test strip Ql (U) 500 /ul High Negative [facility] Urine pHOrdered By: Con Devi on 11-07-2024 pH (U) 6.0 [pH] 5.0 - 8.0 [facility] Urine sediment bacteria coun t by microscopy (number/high power field)Ordered By: Con Pena on 11-07-2024 Bacteria LM.HPF (Urine sed) [#/Area] 2 /[HPF] None Seen [facility] Urine specific gravity measu rementOrdered By: Con Pena on 11-07-2024 Specific gravity (U) [Rel density] 1.015 1.002-1.030 [facility] Urine urobilinogen measureme ntOrdered By: Con Pena on 11-07-2024 Urobilinogen Ql (U) Normal mg/dl Normal [facility] White blood cell (WBC) count Ordered By: Raymond Anthony on 11-07-2024 WBC (Bld) [#/Vol] 8.5 10*3/uL 4.4-11.0 [facility] White blood cell countOrdere d By: Con Pena on 11-07-2024 White blood cell count >100 SEEN /hpf 0-5 [facility] CNPNon 10-29-2024 CNPN Telephone (RADTWS) ABELARDO IVORY ([id number]) 1950 M Date Time Provider Department 10/29/24 LUIGI BANKS During your visit today, we recorded the following information about you: Unruly Diaz RN 10/29/2024 12:11 PM Signed Patient's UA came back positive for a UTI. I attempted to call pt to notify him of this and had to leave a message. Dr Banks has sent in a prescription for an antibiotic to [facility] in [place]. Unruly Diaz RN 10/29/2024 1:09 PM Signed Pt returned call and transfer to [place] was unsuccessful. I called pt and left him another voicemail with my name and the office number to call in if he has further questions. Unruly Diaz RN 10/29/2024 1:13 PM Signed Pt returned phone call and below information was given to patient. 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 - kqedxdjscqc-scdxfrmhd-i ilanter (TRELEGY ELLIPTA) 200-62.5-25 mcg inhalation powder [...] Status:Closed by UNRULY DIAZ on 10/29/24 [facility] Bacteria Ur Culton Bacteria identified Cx [...] , Intermediate >32 , Resistant >64 [facility]normal [facility] Comment on above: Performed By: #### 6 30-4, 95604-4 #### [facility] CLIA [id number] [address] [place] [address] [facility] CNPMalina 10-26-2024 CNPN Telephone ([employer]) ABELARDO IVORY ([id number]) 1950 M Date Time Provider Department 10/26/24 LUIGI BANKS During your visit today, we recorded the following information about you: Nighat Hiens, ANGELA 10/26/2024 12:53 PM Signed Pt. Called [...] 5 mg by mouth once daily. - ldxcozdrbrz-utllpseqw-y ilanter (TRELEGY ELLIPTA) 200-62.5-25 mcg inhalation powder [...] Status:Closed by NIGHAT HINES on 10/26/24 [facility] Urinalysis complete panel (U )on 10-26-2024 Bacteria LM.HPF (Urine sed) [#/Area] Negative Normal [facility] Comment on above: Order Comment: Speci men Type: URINE SPECIMEN Ordering Facility: [facility] Address: [address] [place] [address] Performed By: #### 6 30-4, 90803346-5 #### [facility] CLIA [id number] [address] [place] [address] [place] [address] [place] Bilirubin Ql (U) Negative Normal Negative [facility] Comment on above: Order Comment: Speci men Type: URINE SPECIMEN Ordering Facility: [facility] Address: [address] [place], [place] [address] Performed By: #### 6 30-4, 38882-4 #### [facility] CLIA [id number] [address] [place] [address] [place] Clarity (Unsp spec) Turbid Abnormal Clear [facility] Comment on above: Order Comment: Speci men Type: URINE SPECIMEN Ordering Facility: [facility] Address: [address] [place] [address] Performed By: #### 6 30-4, 12690-9 #### [facility] CLIA [id number] [address] [place] [address] [place] Color (U) Yellow Normal [facility] Comment on above: Order Comment: Speci men Type: URINE SPECIMEN Ordering Facility: [facility] Address: [address] [place] [address] Performed By: #### 6 30-4, 83886-1 #### [facility] CLIA [id number] [address] [place] [address] [place] Epithelial cells LM.HPF (Urine sed) [#/Area] None Seen [facility] Comment on above: Order Comment: Speci men Type: URINE SPECIMEN Ordering Facility: [facility] Address: [address] [place] [address] Performed By: #### 6 30-4, 91444-5 #### [facility] CLIA [id number] [address] [place], [place] [address] [place] Glucose Test strip (U) [Mass/Vol] Negative Normal [facility] Comment on above: Order Comment: Speci men Type: URINE SPECIMEN Ordering Facility: [facility] Address: [address] [place] [address] Performed By: #### 6 30-4, 77936-1 #### [facility] CLIA [id number] [address] [id number] [place] Hemoglobin Ql (U) 2+ Abnormal Negative [facility] Comment on above: Order Comment: Speci men Type: URINE SPECIMEN Ordering Facility: [facility] Address: [address] [place] [address] Performed By: #### 6 30-4, 26372-3 #### [facility] CLIA [id number] [address] [place], [place] [address] [place] Hyaline casts (Urine sed) [#/Area] 1-3 /LPF Abnormal 0 /LPF [facility] Comment on above: Order Comment: Speci men Type: URINE SPECIMEN Ordering Facility: [facility] Address: [address] [place] [address] Performed By: #### 6 30-4, 16995-8 #### [facility] CLIA [id number] [address] [place] [address] [place] Ketones Ql (U) Negative Normal Negative [facility] Comment on above: Order Comment: Speci men Type: URINE SPECIMEN Ordering Facility: [facility] Address: [address] [place] [address] Performed By: #### 6 30-4, 88214-1 #### [facility] CLIA [id number] [address] [place], [place] [address] [place] Leukocyte esterase Test strip Ql (U) 2+ Abnormal [facility] Comment on above: Order Comment: Speci men Type: URINE SPECIMEN Ordering Facility: [facility] Address: [address] [place], [place] [address] Performed By: #### 6 30-4, 56438-8 #### [facility] CLIA [id number] [address] [place], [place] [address] [place] Nitrite Ql (U) Negative Normal Negative [facility] Comment on above: Order Comment: Speci men Type: URINE SPECIMEN Ordering Facility: [facility] Address: [address] [place], [place] [address] Performed By: #### 6 30-4, 07320-4 #### [facility] CLIA [id number] [address] [place] [address] [place] pH (U) 6.5 [pH] Normal 5.0-8.0 [facility] Comment on above: Order Comment: Speci men Type: URINE SPECIMEN Ordering Facility: [facility] Address: [address] [place] [address] Performed By: #### 6 30-4, 21664-6 #### [facility] CLIA [id number] [address] [place] [address] [place] Protein (U) [Mass/Vol] 3+ Abnormal Negative [facility] Comment on above: Order Comment: Speci men Type: URINE SPECIMEN Ordering Facility: [facility] Address: [address] [place] [address] Performed By: #### 6 30-4, 16088-7 #### [facility] CLIA [id number] [address] [place] [address] [place] RBC LM.HPF (Urine sed) [#/Area] /[HPF] Abnormal 0-2 /HPF [facility] Comment on above: Order Comment: Speci men Type: URINE SPECIMEN Ordering Facility: [facility] Address: [address] [place] [address] Performed By: #### 6 30-4, 48390-3 #### [facility] CLIA [id number] [address] [place] [address] [place] Specific gravity (U) [Rel density] 1.014 Normal 1.005-1.030 [facility] Comment on above: Order Comment: Speci men Type: URINE SPECIMEN Ordering Facility: [facility] Address: [address] [place] [address] Performed By: #### 6 30-4, 47291-6 #### [facility] CLIA [id number] [address] [place] [address] [place] Urobilinogen Ql (U) 0.2 EU/dL Normal 0.2-1.0 EU/dL [facility] Comment on above: Order Comment: Speci men Type: URINE SPECIMEN Ordering Facility: [facility] Address: [address] [place] [address] Performed By: #### 6 30-4, 81586-0 #### [facility] CLIA [id number] [address] [place] [address] [place] WBC LM.HPF (Urine sed) [#/Area] /[HPF] Abnormal 0-5 /HPF [facility] Comment on above: Order Comment: Speci men Type: URINE SPECIMEN Ordering Facility: [facility] Address: [address] [place] [address] Performed By: #### 6 30-4, 91422-0 #### [facility] CLIA [id number] [address] [place] [address] [place] CNOVon 10-16-2024 CNOV Office Visit (RADTWS ) ABELARDO IVORY ([id number]) 1950 M Date Time Provider Department 10/16/24 [...] NAME: Abelardo Ivory PATIENT October 16, 2024 [facility] FACILITY/LOCATION: [place] NOTE TYPE: PROSTATE - MALE PELVIS Subjective Data No concerns voiced Additional Data Do you want to see a Diesel Locomotive Firer? No Status: Patient is male Stress Scale: On a scale of 0 to 10, what number best describes how much distress you have experienced in the past week?(0 being no distress and 10 being extreme distress) 1 Social work notified: Pt denied need to see nephrology social worker at this time. Nursing Assessment [...] Bladder function: no problems. Urinary frequency (D/N): [id number]/2-3. SIGNED by: Nighat Hines RN Allergies As [...] 5 mg by mouth once daily. - yhverjgbzjg-avbhilksr-b ilanter (TRELEGY ELLIPTA) 200-62.5-25 mcg inhalation powder [...] [D62] 02/12/2019 (more content not included)... [facility] CBC W Auto Differential pane l (Bld)on 10-15-2024 Basophils (Bld) [#/Vol] [facility] Basophils/100 WBC (Bld) 0.5 % [facility] Differential cell count method Nom (Bld) Auto [facility] Eosinophils (Bld) [#/Vol] 0.12 10*3/uL [facility] Eosinophils/100 WBC (Bld) 3.1 % [facility] Erythrocyte distribution width (RBC) [Ratio] 14.6 % 11.5 - 15.0 % [facility] Hematocrit (Bld) [Volume fraction] 32.5 % Low 39.0 - 51.0 % [facility] Hemoglobin (Bld) [Mass/Vol] 10.7 g/dL Low 13.0 - 17.0 g/dL [facility] Immature granulocytes (Bld) [#/Vol] [facility] Immature granulocytes/100 WBC (Bld) 0.3 % [facility] Interpretation and review of laboratory results Abnormal [facility] Lymphocytes (Bld) [#/Vol] 0.83 10*3/uL Low [facility] Lymphocytes/100 WBC (Bld) 21.3 % [facility] MCH (RBC) [Entitic mass] 31.0 pg 26.0 - 34.0 pg [facility] MCHC (RBC) [Mass/Vol] 32.9 g/dL 30.5 - 36.0 g/dL [facility] MCV (RBC) [Entitic vol] 94.2 fL 80.0 - 100.0 fL [facility] Monocytes (Bld) [#/Vol] 0.61 10*3/uL [facility] Monocytes/100 WBC (Bld) 15.6 % [facility] Neutrophils (Bld) [#/Vol] 2.31 10*3/uL [facility] Neutrophils/100 WBC (Bld) 59.2 % [facility] Nucleated RBC (Bld) [#/Vol] NINF [facility] Nucleated RBC/100 WBC (Bld) [Ratio] 0.0 % /100 WBC [facility] Platelet mean volume (Bld) [Entitic vol] 8.9 fL Low 9.0 - 12.7 fL [facility] Platelets (Bld) [#/Vol] 105 10*3/uL Low [facility] Comment on above: No clot detected. RBC (Bld) [#/Vol] 3.45 10*6/uL Low 4.20 - 6.0 0 m/uL [facility] WBC (Bld) [#/Vol] 3.90 10*3/uL [facility] Basophils (Bld) [#/Vol] 10*3/uL Normal <0.11 [facility] Comment on above: Order Comment: Speci men Type: BLOOD SPECIMENOrdering Facility: [facility] Address: [address] [place] [address] Performed By: #### 6 30-4, 40439-3 #### [facility] CLIA [id number] [address] [place] [address] [place] Basophils/100 WBC (Bld) 0.5 % [facility] Comment on above: Order Comment: Speci men Type: BLOOD SPECIMENOrdering Facility: [facility] Address: [address] [place] [address] Performed By: #### 6 30-4, 35628-1 #### [facility] CLIA [id number] [address] [place] [address] [place] Differential cell count method Nom (Bld) Auto [facility] Comment on above: Order Comment: Speci men Type: BLOOD SPECIMENOrdering Facility: [facility] Address: [address] [place] [address] Performed By: #### 6 30-4, 15348-8 #### [facility] CLIA [id number] [address] [place] [address] [place] Eosinophils (Bld) [#/Vol] 0.12 10*3/uL Normal <0.46 [facility] Comment on above: Order Comment: Speci men Type: BLOOD SPECIMENOrdering Facility: [facility] Address: [address] [place] [address] Performed By: #### 6 30-4, 12903-0 #### [facility] CLIA [id number] [address] [place] [address] [place] Eosinophils/100 WBC (Bld) 3.1 % [facility] Comment on above: Order Comment: Speci men Type: BLOOD SPECIMENOrdering Facility: [facility] Address: [address] [place] [address] Performed By: #### 6 30-4, 19747-2 #### [facility] CLIA [id number] [address] [place] [address] [place] Erythrocyte distribution width (RBC) [Ratio] 14.6 % Normal 11.5-15.0 [facility] Comment on above: Order Comment: Speci men Type: BLOOD SPECIMENOrdering Facility: [facility] Address: [address] [place] [address] Performed By: #### 6 30-4, 76019-4 #### [facility] CLIA [id number] [address] [place] [address] [place] Hematocrit (Bld) [Volume fraction] 32.5 % Low 39.0-51.0 [facility] Comment on above: Order Comment: Speci men Type: BLOOD SPECIMENOrdering Facility: [facility] Address: [address] [place] [address] Performed By: #### 6 30-4, 98738-5 #### [facility] CLIA [id number] [address] [place] [address] [place] Hemoglobin (Bld) [Mass/Vol] 10.7 g/dL Low 13.0-17.0 [facility] Comment on above: Order Comment: Speci men Type: BLOOD SPECIMENOrdering Facility: [facility] Address: [address] [place] [address] Performed By: #### 6 30-4, 38630-7 #### [facility] CLIA [id number] [address] [place] [address] [place] Immature granulocytes (Bld) [#/Vol] 10*3/uL Normal <0.10 [facility] Comment on above: Order Comment: Speci men Type: BLOOD SPECIMENOrdering Facility: [facility] Address: [address] [place] [address] Performed By: #### 6 30-4, 82450-4 #### [facility] CLIA [id number] [address] [place] [address] [place] Immature granulocytes/100 WBC (Bld) 0.3 % [facility] Comment on above: Order Comment: Speci men Type: BLOOD SPECIMENOrdering Facility: [facility] Address: [address] [place] [address] Performed By: #### 6 30-4, 66647-6 #### [facility] CLIA [id number] [address] [place] [address] [place] Lymphocytes (Bld) [#/Vol] 0.83 10*3/uL Low 1.00-4.00 [facility] Comment on above: Order Comment: Speci men Type: BLOOD SPECIMENOrdering Facility: [facility] Address: [address] [place] [address] Performed By: #### 6 30-4, 08195-1 #### [facility] CLIA [id number] [address] [place] [address] [place] Lymphocytes/100 WBC (Bld) 21.3 % [facility] Comment on above: Order Comment: Speci men Type: BLOOD SPECIMENOrdering Facility: [facility] Address: [address] [place] [address] Performed By: #### 6 30-4, 11433-1 #### [facility] CLIA [id number] [address] [place] [address] [place] MCH (RBC) [Entitic mass] 31.0 pg Normal 26.0-34.0 [facility] Comment on above: Order Comment: Speci men Type: BLOOD SPECIMENOrdering Facility: [facility] Address: [address] [place] [address] Performed By: #### 6 30-, 60955-3 #### [facility] CLIA [id number] [address] [place] [address] [place] MCHC (RBC) [Mass/Vol] 32.9 g/dL Normal 30.5-36.0 [facility] Comment on above: Order Comment: Speci men Type: BLOOD SPECIMENOrdering Facility: [facility] Address: [address] [place] [address] Performed By: #### 6 30, 75447-1 #### [facility] CLIA [id number] [address] [place] [address] [place] MCV (RBC) [Entitic vol] 94.2 fL Normal 80.0-100.0 [facility] Comment on above: Order Comment: Speci men Type: BLOOD SPECIMENOrdering Facility: [facility] Address: [address] [place] [address] Performed By: #### 6 30-, 39510-0 #### [facility] CLIA [id number] [address] [place] [address] [place] Monocytes (Bld) [#/Vol] 0.61 10*3/uL Normal <0.87 [facility] Comment on above: Order Comment: Speci men Type: BLOOD SPECIMENOrdering Facility: [facility] Address: [address] [place] [address] Performed By: #### 6 30-4, 91767-6 #### [facility] CLIA [id number] [address] [place] [address] [place] Monocytes/100 WBC (Bld) 15.6 % [facility] Comment on above: Order Comment: Speci men Type: BLOOD SPECIMENOrdering Facility: [facility] Address: [address] [place] [address] Performed By: #### 6 30-4, 02821-8 #### [facility] CLIA [id number] [address] [place] [address] [place] Neutrophils (Bld) [#/Vol] 2.31 10*3/uL Normal 1.45-7.50 [facility] Comment on above: Order Comment: Speci men Type: BLOOD SPECIMENOrdering Facility: [facility] Address: [address] [place] [address] Performed By: #### 6 30-4, 69134-4 #### [facility] CLIA [id number] [address] [place] [address] [place] Neutrophils/100 WBC (Bld) 59.2 % [facility] Comment on above: Order Comment: Speci men Type: BLOOD SPECIMENOrdering Facility: [facility] Address: [address] [place] [address] Performed By: #### 6 30-4, 88272-4 #### [facility] CLIA [id number] [address] [place] [address] [place] Nucleated RBC (Bld) [#/Vol] 10*3/uL Normal <0.01 [facility] Comment on above: Order Comment: Speci men Type: BLOOD SPECIMENOrdering Facility: [facility] Address: [address] [place] [address] Performed By: #### 6 30-4, 00009-5 #### [facility] CLIA [id number] [address] [place] [address] [place] Nucleated RBC/100 WBC (Bld) [Ratio] 0.0 /100 WBC [facility] Comment on above: Order Comment: Speci men Type: BLOOD SPECIMENOrdering Facility: [facility] Address: [address] [place] [address] Performed By: #### 6 30-4, 19207-5 #### [facility] CLIA [id number] [address] [place] [address] [place] Platelet mean volume (Bld) [Entitic vol] 8.9 fL Low 9.0-12.7 [facility] Comment on above: Order Comment: Speci men Type: BLOOD SPECIMENOrdering Facility: [facility] Address: [address] [place] [address] Performed By: #### 6 30-4, 04607-1 #### [facility] CLIA [id number] [address] [place] [address] [place] Platelets (Bld) [#/Vol] 105 10*3/uL Low 150-400 [facility] Comment on above: Order Comment: Speci men Type: BLOOD SPECIMENOrdering Facility: [facility] Address: [address] [place] [address] Result Comment: No c lot detected. Performed By: #### 6 30-4, 24196-2 #### [facility] CLIA [id number] [address] [place] [address] [place] RBC (Bld) [#/Vol] 3.45 10*6/uL Low 4.20-6.00 [facility] Comment on above: Order Comment: Speci men Type: BLOOD SPECIMENOrdering Facility: [facility] Address: [address] [place] [address] Performed By: #### 6 30-4, 98837-6 #### [facility] CLIA [id number] [address] [place] [address] [place] WBC (Bld) [#/Vol] 3.90 10*3/uL Normal 3.70-11.00 [facility] Comment on above: Order Comment: Speci men Type: BLOOD SPECIMENOrdering Facility: [facility] Address: [address] [place] [address] Performed By: #### 6 30-4, 79598-2 #### [facility] CLIA [id number] [address] [place] [address] [place] CNOVSPon 10-12-2024 CNOVSP Visit (SP) Office (VAIBHAV) ABELARDO IVORY ([id number]) 1950 M Date Time Provider Department 10/12/24 [...] urine. Saw Dr. Winston. Had TURBT with "chemo flush." Path below. Referred to [facility] b/c patient declined cystectomy. Per Dr. Christianson's note dated 07/26/2024, "June 2024, began experiencing flank pain, and hematuria, [...] circumferential thickening with soft tissue stranding. Imaging 4/025- no metastases on CT A/P Smokes 1/2 ppd, in the past 1-1.5 ppd since age 15 years" Pathology from [facility] reviewed at main campus: A. Urinary bladder, [...] cough. Clear sputum. Sees Dr. Zuñiga at [facility]. Smokes about 1/2 ppd. No alcohol. Interval [...] SURGICAL HISTORY OF 12/28/2021 AAA repair - "Stable status post graft repair of abdominal aortic aneurysm." PAST SURGICAL HISTORY OF 2024 Hernia repair [...] Take 5 mg by mouth once daily. prenwbuuwgc-xvibkrwwh-t ilanter (TRELEGY ELLIPTA) 200-62.5-25 mcg inhalation powder Inhale 1 puff as instructed once daily. acetaminophen (TYLENOL) 325 mg tablet Take 2 tablets by mouth every 4 hours. rosuvastatin (CRESTOR) 5 mg tablet Take 5 mg by mouth once (more content not included)... [facility] CBC W Auto Differential pane l (Bld)on 10-09-2024 Basophils (Bld) [#/Vol] [facility] Basophils/100 WBC (Bld) 0.4 % [facility] Differential cell count method Nom (Bld) Auto [facility] Eosinophils (Bld) [#/Vol] 0.11 10*3/uL [facility] Eosinophils/100 WBC (Bld) 2.0 % [facility] Erythrocyte distribution width (RBC) [Ratio] 14.1 % 11.5 - 15.0 % [facility] Hematocrit (Bld) [Volume fraction] 32.7 % Low 39.0 - 51.0 % [facility] Hemoglobin (Bld) [Mass/Vol] 10.8 g/dL Low 13.0 - 17.0 g/dL [facility] Immature granulocytes (Bld) [#/Vol] [facility] Immature granulocytes/100 WBC (Bld) 0.4 % [facility] Interpretation and review of laboratory results Abnormal [facility] Lymphocytes (Bld) [#/Vol] 1.08 10*3/uL [facility] Lymphocytes/100 WBC (Bld) 19.4 % [facility] MCH (RBC) [Entitic mass] 30.9 pg 26.0 - 34.0 pg [facility] MCHC (RBC) [Mass/Vol] 33.0 g/dL 30.5 - 36.0 g/dL [facility] MCV (RBC) [Entitic vol] 93.4 fL 80.0 - 100.0 fL [facility] Monocytes (Bld) [#/Vol] 0.45 10*3/uL [facility] Monocytes/100 WBC (Bld) 8.1 % [facility] Neutrophils (Bld) [#/Vol] 3.88 10*3/uL [facility] Neutrophils/100 WBC (Bld) 69.7 % [facility] Nucleated RBC (Bld) [#/Vol] NINF [facility] Nucleated RBC/100 WBC (Bld) [Ratio] 0.0 % /100 WBC [facility] Platelet mean volume (Bld) [Entitic vol] 9.1 fL 9.0 - 12.7 fL [facility] Platelets (Bld) [#/Vol] 55 10*3/uL Low [facility] Comment on above: No clot detected. RBC (Bld) [#/Vol] 3.50 10*6/uL Low 4.20 - 6.0 0 m/uL [facility] WBC (Bld) [#/Vol] 5.56 10*3/uL [facility] Basophils (Bld) [#/Vol] 10*3/uL [facility] <0.11 [facility] Comment on above: Order Comment: Speci men Type: BLOOD SPECIMENOrdering Facility: [facility] Address: [address] [place] [address] Performed By: #### 6 30-4, 40520109-4 #### [facility] CLIA [id number] [address] [place] [address] [place] Basophils/100 WBC (Bld) 0.4 % [facility] Comment on above: Order Comment: Speci men Type: BLOOD SPECIMENOrdering Facility: [facility] Address: [address] [place] [address] Performed By: #### 6 30-4, 40938-9 #### [facility] CLIA [id number] [address] [place] [address] [place] Differential cell count method Nom (Bld) Auto [facility] Comment on above: Order Comment: Speci men Type: BLOOD SPECIMENOrdering Facility: [facility] Address: [address] [place] [address] Performed By: #### 6 30-4, 17323-8 #### [facility] CLIA [id number] [address] [place] [address] [place] Eosinophils (Bld) [#/Vol] 0.11 10*3/uL Normal <0.46 [facility] Comment on above: Order Comment: Speci men Type: BLOOD SPECIMENOrdering Facility: [facility] Address: [address] [place] [address] Performed By: #### 6 30-4, 89771-1 #### [facility] CLIA [id number] [address] [place] [address] [place] Eosinophils/100 WBC (Bld) 2.0 % [facility] Comment on above: Order Comment: Speci men Type: BLOOD SPECIMENOrdering Facility: [facility] Address: [address] [place] [address] Performed By: #### 6 30-4, 86517-2 #### [facility] CLIA [id number] [address] [place] [address] [place] Erythrocyte distribution width (RBC) [Ratio] 14.1 % Normal 11.5-15.0 [facility] Comment on above: Order Comment: Speci men Type: BLOOD SPECIMENOrdering Facility: [facility] Address: [address] [place] [address] Performed By: #### 6 30-4, 76731-6 #### [facility] CLIA [id number] [address] [place], [place] [address] [place] Hematocrit (Bld) [Volume fraction] 32.7 % Low 39.0-51.0 [facility] Comment on above: Order Comment: Speci men Type: BLOOD SPECIMENOrdering Facility: [facility] Address: [address] [place] [address] Performed By: #### 6 30, 13263-1 #### [facility] CLIA [id number] [address] [place], [place] [address] [place] Hemoglobin (Bld) [Mass/Vol] 10.8 g/dL Low 13.0-17.0 [facility] Comment on above: Order Comment: Speci men Type: BLOOD SPECIMENOrdering Facility: [facility] Address: [address] [place] [address] Performed By: #### 6 30, 80815-8 #### [facility] CLIA [id number] [address] [place] [address] [place] Immature granulocytes (Bld) [#/Vol] 10*3/uL Normal <0.10 [facility] Comment on above: Order Comment: Speci men Type: BLOOD SPECIMENOrdering Facility: [facility] Address: [address] [place] [address] Performed By: #### 6 30, 69189-6 #### [facility] CLIA [id number] [address] [place], [place] [address] [place] Immature granulocytes/100 WBC (Bld) 0.4 % [facility] Comment on above: Order Comment: Speci men Type: BLOOD SPECIMENOrdering Facility: [facility] Address: [address] [place] [address] Performed By: #### 6 30-, 33735-9 #### [facility] CLIA [id number] [address] [place], [place] [address] [place] Lymphocytes (Bld) [#/Vol] 1.08 10*3/uL Normal 1.00-4.00 [facility] Comment on above: Order Comment: Speci men Type: BLOOD SPECIMENOrdering Facility: [facility] Address: [address] [place] [address] Performed By: #### 6 30-4, 21743-1 #### [facility] CLIA [id number] [address] [place] [address] [place] Lymphocytes/100 WBC (Bld) 19.4 % [facility] Comment on above: Order Comment: Speci men Type: BLOOD SPECIMENOrdering Facility: [facility] Address: [address] [place] [address] Performed By: #### 6 30-4, 32036-5 #### [facility] CLIA [id number] [address] [place] [address] [place] MCH (RBC) [Entitic mass] 30.9 pg Normal 26.0-34.0 [facility] Comment on above: Order Comment: Speci men Type: BLOOD SPECIMENOrdering Facility: [facility] Address: [address] [place] [address] Performed By: #### 6 30-4, 81282-2 #### [facility] CLIA [id number] [address] [place] [address] [place] MCHC (RBC) [Mass/Vol] 33.0 g/dL Normal 30.5-36.0 [facility] Comment on above: Order Comment: Speci men Type: BLOOD SPECIMENOrdering Facility: [facility] Address: [address] [place] [address] Performed By: #### 6 30-4, 08278-8 #### [facility] CLIA [id number] [address] [place] [address] [place] MCV (RBC) [Entitic vol] 93.4 fL Normal 80.0-100.0 [facility] Comment on above: Order Comment: Speci men Type: BLOOD SPECIMENOrdering Facility: [facility] Address: [address] [place] [address] Performed By: #### 6 30-4, 25337-9 #### [facility] CLIA [id number] [address] [place] [address] [place] Monocytes (Bld) [#/Vol] 0.45 10*3/uL Normal <0.87 [facility] Comment on above: Order Comment: Speci men Type: BLOOD SPECIMENOrdering Facility: [facility] Address: [address] [place] [address] Performed By: #### 6 30-4, 76293-9 #### [facility] CLIA [id number] [address] [place] [address] [place] Monocytes/100 WBC (Bld) 8.1 % [facility] Comment on above: Order Comment: Speci men Type: BLOOD SPECIMENOrdering Facility: [facility] Address: [address] [place] [address] Performed By: #### 6 30-4, 64370-2 #### [facility] CLIA [id number] [address] [place] [address] [place] Neutrophils (Bld) [#/Vol] 3.88 10*3/uL Normal 1.45-7.50 [facility] Comment on above: Order Comment: Speci men Type: BLOOD SPECIMENOrdering Facility: [facility] Address: [address] [place] [address] Performed By: #### 6 30-4, 75602-1 #### [facility] CLIA [id number] [address] [place] [address] [place] Neutrophils/100 WBC (Bld) 69.7 % [facility] Comment on above: Order Comment: Speci men Type: BLOOD SPECIMENOrdering Facility: [facility] Address: [address] [place] [address] Performed By: #### 6 30-4, 52438-4 #### [facility] CLIA [id number] [address] [place] [address] [place] Nucleated RBC (Bld) [#/Vol] 10*3/uL Normal <0.01 [facility] Comment on above: Order Comment: Speci men Type: BLOOD SPECIMENOrdering Facility: [facility] Address: [address] [place] [address] Performed By: #### 6 30-4, 01377-5 #### [facility] CLIA [id number] [address] [place] [address] [place] Nucleated RBC/100 WBC (Bld) [Ratio] 0.0 /100 WBC [facility] Comment on above: Order Comment: Speci men Type: BLOOD SPECIMENOrdering Facility: [facility] Address: [address] [place] [address] Performed By: #### 6 30-4, 04911-4 #### [facility] CLIA [id number] [address] [place] [address] [place] Platelet mean volume (Bld) [Entitic vol] 9.1 fL Normal 9.0-12.7 [facility] Comment on above: Order Comment: Speci men Type: BLOOD SPECIMENOrdering Facility: [facility] Address: [address] [place] [address] Performed By: #### 6 30-4, 37569-4 #### [facility] CLIA [id number] [address] [place] [address] [place] Platelets (Bld) [#/Vol] 55 10*3/uL Low 150-400 [facility] Comment on above: Order Comment: Speci men Type: BLOOD SPECIMENOrdering Facility: [facility] Address: [address] [place] [address] Result Comment: No c lot detected. Performed By: #### 6 30-4, 96152-6 #### [facility] CLIA [id number] [address] [place] [address] [place] RBC (Bld) [#/Vol] 3.50 10*6/uL Low 4.20-6.00 [facility] Comment on above: Order Comment: Speci men Type: BLOOD SPECIMENOrdering Facility: [facility] Address: [address] [place] [address] Performed By: #### 6 30-4, 61831-3 #### [facility] CLIA [id number] [address] [place] [address] [place] WBC (Bld) [#/Vol] 5.56 10*3/uL Normal 3.70-11.00 [facility] Comment on above: Order Comment: Speci men Type: BLOOD SPECIMENOrdering Facility: [facility] Address: [address] [place] [address] Performed By: #### 6 30-4, 90620-5 #### [facility] CLIA [id number] [address] [place] [address] [place] CNOVon 10-09-2024 CNOV Office Visit (RADTWS ) ABELARDO IVORY ([id number]) 1950 M Date Time Provider Department 10/09/24 10:15 AM LUIGI BANKS RADTWS During your visit today, we recorded the following information about you: Temperature Pulse Blood pressure 97.6 degrees 61/minute 105/63 Shreya Souza, RN 10/09/2024 10:02 AM Signed Radiation Therapy - Nursing Note (OTV) PATIENT NAME: Abelardo Ivory PATIENT October 09, 2024 [facility] FACILITY/LOCATION: [place] NOTE TYPE: PROSTATE - MALE PELVIS Subjective Data Pt states his pain is much in better, not taking pain meds much at this time Additional Data Do you want to see a Diesel Locomotive Firer? No Status: Patient is male Stress Scale: On a scale of 0 to 10, what number best describes how much distress you have experienced in the past week?(0 being no distress and 10 being extreme distress) 1 Social work notified: Pt denied need to see nephrology social worker at this time. Nursing Assessment [...] 5 mg by mouth once daily. - udzewftnrem-vncedltyd-v ilanter (TRELEGY ELLIPTA) 200-62.5-25 mcg inhalation powder [...] without r (more content not included)... [facility] CNOVon 10-02-2024 CNOV Office Visit (RADTWS ) ABELARDO IVORY ([id number]) 1950 M Date Time Provider Department 10/02/24 10:15 AM LUIGI BANKS RADTTEODORO During your visit today, we recorded the following information about you: Temperature Pulse Respiration Blood pressure 98.2 degrees 59/minute 14/minute 148/74 Unruly Diaz RN 10/02/2024 10:20 AM Signed Radiation Therapy - Nursing Note (OTV) PATIENT NAME: Abelardo Ivory PATIENT October 02, 2024 [facility] FACILITY/LOCATION: [place] NURSING NOTE TYPE: PROSTATE - MALE PELVIS Subjective Data No complaints Additional Data Do you want to see a Diesel Locomotive Firer? No Status: Patient is male Stress Scale: [...] 5 mg by mouth once daily. - kojludfkvmg-hspwfdgfc-m ilanter (TRELEGY ELLIPTA) 200-62.5-25 mcg inhalation powder [...] [D62] 02/12 (more content not included)... [facility] CBC W Auto Differential pane l (Bld)on 10-01-2024 Basophils (Bld) [#/Vol] 0.03 10*3/uL NINF [facility] Basophils/100 WBC (Bld) 0.7 % [facility] Differential cell count method Nom (Bld) Auto [facility] Eosinophils (Bld) [#/Vol] 0.04 10*3/uL [facility] Eosinophils/100 WBC (Bld) 0.9 % [facility] Erythrocyte distribution width (RBC) [Ratio] 13.8 % 11.5 - 15.0 % [facility] Hematocrit (Bld) [Volume fraction] 33.8 % Low 39.0 - 51.0 % [facility] Hemoglobin (Bld) [Mass/Vol] 10.9 g/dL Low 13.0 - 17.0 g/dL [facility] Immature granulocytes (Bld) [#/Vol] 0.03 10*3/uL [facility] Immature granulocytes/100 WBC (Bld) 0.7 % [facility] Interpretation and review of laboratory results Abnormal [facility] Lymphocytes (Bld) [#/Vol] 1.25 10*3/uL [facility] Lymphocytes/100 WBC (Bld) 28.7 % [facility] MCH (RBC) [Entitic mass] 30.4 pg 26.0 - 34.0 pg [facility] MCHC (RBC) [Mass/Vol] 32.2 g/dL 30.5 - 36.0 g/dL [facility] MCV (RBC) [Entitic vol] 94.4 fL 80.0 - 100.0 fL [facility] Monocytes (Bld) [#/Vol] 0.23 10*3/uL [facility] Monocytes/100 WBC (Bld) 5.3 % [facility] Neutrophils (Bld) [#/Vol] 2.78 10*3/uL [facility] Neutrophils/100 WBC (Bld) 63.7 % [facility] Nucleated RBC (Bld) [#/Vol] [facility] Nucleated RBC/100 WBC (Bld) [Ratio] 0.0 % /100 WBC [facility] Platelet mean volume (Bld) [Entitic vol] 8.9 fL Low 9.0 - 12.7 fL [facility] Platelets (Bld) [#/Vol] 107 10*3/uL Low [facility] RBC (Bld) [#/Vol] 3.58 10*6/uL Low 4.20 - 6.0 0 m/uL [facility] WBC (Bld) [#/Vol] 4.36 10*3/uL [facility] Basophils (Bld) [#/Vol] 0.03 10*3/uL Normal <0.11 [facility] Comment on above: Order Comment: Speci men Type: BLOOD SPECIMENOrdering Facility: [facility] Address: [address] [place] [address] Performed By: #### 6 30-4, 01780-0 #### [facility] CLIA [id number] [address] [place] [address] [place] Basophils/100 WBC (Bld) 0.7 % [facility] Comment on above: Order Comment: Speci men Type: BLOOD SPECIMENOrdering Facility: [facility] Address: [address] [place] [address] Performed By: #### 6 30-4, 15554-3 #### [facility] CLIA [id number] [address] [place] [address] [place] Differential cell count method Nom (Bld) Auto [facility] Comment on above: Order Comment: Speci men Type: BLOOD SPECIMENOrdering Facility: [facility] Address: [address] [place] [address] Performed By: #### 6 30-4, 76531-1 #### [facility] CLIA [id number] [address] [place] [address] [place] Eosinophils (Bld) [#/Vol] 0.04 10*3/uL Normal <0.46 [facility] Comment on above: Order Comment: Speci men Type: BLOOD SPECIMENOrdering Facility: [facility] Address: [address] [place] [address] Performed By: #### 6 30-4, 30059-1 #### [facility] CLIA [id number] [address] [place] [address] [place] Eosinophils/100 WBC (Bld) 0.9 % [facility] Comment on above: Order Comment: Speci men Type: BLOOD SPECIMENOrdering Facility: [facility] Address: [address] [place] [address] Performed By: #### 6 30-4, 78655-1 #### [facility] CLIA [id number] [address] [place] [address] [place] Erythrocyte distribution width (RBC) [Ratio] 13.8 % Normal 11.5-15.0 [facility] Comment on above: Order Comment: Speci men Type: BLOOD SPECIMENOrdering Facility: [facility] Address: [address] [place] [address] Performed By: #### 6 30-4, 36587-7 #### [facility] CLIA [id number] [address] [place] [address] [place] Hematocrit (Bld) [Volume fraction] 33.8 % Low 39.0-51.0 [facility] Comment on above: Order Comment: Speci men Type: BLOOD SPECIMENOrdering Facility: [facility] Address: [address] [place] [address] Performed By: #### 6 30-4, 56527-1 #### [facility] CLIA [id number] [address] [place] [address] [place] Hemoglobin (Bld) [Mass/Vol] 10.9 g/dL Low 13.0-17.0 [facility] Comment on above: Order Comment: Speci men Type: BLOOD SPECIMENOrdering Facility: [facility] Address: [address] [place] [address] Performed By: #### 6 30-4, 93027-7 #### [facility] CLIA [id number] [address] [place] [address] [place] Immature granulocytes (Bld) [#/Vol] 0.03 10*3/uL Normal <0.10 [facility] Comment on above: Order Comment: Speci men Type: BLOOD SPECIMENOrdering Facility: [facility] Address: [address] [place] [address] Performed By: #### 6 30-4, 89970-0 #### [facility] CLIA [id number] [address] [place] [address] [place] Immature granulocytes/100 WBC (Bld) 0.7 % [facility] Comment on above: Order Comment: Speci men Type: BLOOD SPECIMENOrdering Facility: [facility] Address: [address] [place] [address] Performed By: #### 6 30-4, 32369-7 #### [facility] CLIA [id number] [address] [place] [address] [place] Lymphocytes (Bld) [#/Vol] 1.25 10*3/uL Normal 1.00-4.00 [facility] Comment on above: Order Comment: Speci men Type: BLOOD SPECIMENOrdering Facility: [facility] Address: [address] [place] [address] Performed By: #### 6 30-4, 54727-6 #### [facility] CLIA [id number] [address] [place] [address] [place] Lymphocytes/100 WBC (Bld) 28.7 % [facility] Comment on above: Order Comment: Speci men Type: BLOOD SPECIMENOrdering Facility: [facility] Address: [address] [place] [address] Performed By: #### 6 30-4, 94672-8 #### [facility] CLIA [id number] [address] [place] [address] [place] MCH (RBC) [Entitic mass] 30.4 pg Normal 26.0-34.0 [facility] Comment on above: Order Comment: Speci men Type: BLOOD SPECIMENOrdering Facility: [facility] Address: [address] [place] [address] Performed By: #### 6 30-4, 25264-3 #### [facility] CLIA [id number] [address] [place], [place] [address] [place] MCHC (RBC) [Mass/Vol] 32.2 g/dL Normal 30.5-36.0 [facility] Comment on above: Order Comment: Speci men Type: BLOOD SPECIMENOrdering Facility: [facility] Address: [address] [place] [address] Performed By: #### 6 30-4, 74182-4 #### [facility] CLIA [id number] [address] [place] [address] [place] MCV (RBC) [Entitic vol] 94.4 fL Normal 80.0-100.0 [facility] Comment on above: Order Comment: Speci men Type: BLOOD SPECIMENOrdering Facility: [facility] Address: [address] [place] [address] Performed By: #### 6 30, 19602-4 #### [facility] CLIA [id number] [address] [place] [address] [place] Monocytes (Bld) [#/Vol] 0.23 10*3/uL Normal <0.87 [facility] Comment on above: Order Comment: Speci men Type: BLOOD SPECIMENOrdering Facility: [facility] Address: [address] [place] [address] Performed By: #### 6 30-4, 03204-4 #### [facility] CLIA [id number] [address] [place], [place] [address] [place] Monocytes/100 WBC (Bld) 5.3 % [facility] Comment on above: Order Comment: Speci men Type: BLOOD SPECIMENOrdering Facility: [facility] Address: [address] [place] [address] Performed By: #### 6 30-4, 72688-8 #### [facility] CLIA [id number] [address] [place], [place] [address] [place] Neutrophils (Bld) [#/Vol] 2.78 10*3/uL Normal 1.45-7.50 [facility] Comment on above: Order Comment: Speci men Type: BLOOD SPECIMENOrdering Facility: [facility] Address: [address] [place] [address] Performed By: #### 6 30-4, 72176-2 #### [facility] CLIA [id number] [address] [place] [address] [place] Neutrophils/100 WBC (Bld) 63.7 % [facility] Comment on above: Order Comment: Speci men Type: BLOOD SPECIMENOrdering Facility: [facility] Address: [address] [place] [address] Performed By: #### 6 30-4, 33323-4 #### [facility] CLIA [id number] [address] [place] [address] [place] Nucleated RBC (Bld) [#/Vol] 10*3/uL Normal <0.01 [facility] Comment on above: Order Comment: Speci men Type: BLOOD SPECIMENOrdering Facility: [facility] Address: [address] [place] [address] Performed By: #### 6 30-4, 90295-8 #### [facility] CLIA [id number] [address] [place] [address] [place] Nucleated RBC/100 WBC (Bld) [Ratio] 0.0 /100 WBC [facility] Comment on above: Order Comment: Speci men Type: BLOOD SPECIMENOrdering Facility: [facility] Address: [address] [place] [address] Performed By: #### 6 30-4, 50581-6 #### [facility] CLIA [id number] [address] [place] [address] [place] Platelet mean volume (Bld) [Entitic vol] 8.9 fL Low 9.0-12.7 [facility] Comment on above: Order Comment: Speci men Type: BLOOD SPECIMENOrdering Facility: [facility] Address: [address] [place] [address] Performed By: #### 6 30-4, 98655-4 #### [facility] CLIA [id number] [address] [place] [address] [place] Platelets (Bld) [#/Vol] 107 10*3/uL Low 150-400 [facility] Comment on above: Order Comment: Speci men Type: BLOOD SPECIMENOrdering Facility: [facility] Address: [address] [place] [address] Performed By: #### 6 30-4, 42221-3 #### [facility] CLIA [id number] [address] [place] [address] [place] RBC (Bld) [#/Vol] 3.58 10*6/uL Low 4.20-6.00 [facility] Comment on above: Order Comment: Speci men Type: BLOOD SPECIMENOrdering Facility: [facility] Address: [address] [place] [address] Performed By: #### 6 30-4, 05999-3 #### [facility] CLIA [id number] [address] [place] [address] [place] WBC (Bld) [#/Vol] 4.36 10*3/uL Normal 3.70-11.00 [facility] Comment on above: Order Comment: Speci men Type: BLOOD SPECIMENOrdering Facility: [facility] Address: [address] [place] [address] Performed By: #### 6 30-4, 28973-5 #### [facility] CLIA [id number] [address] [place], [place] [address] [place] Comprehensive metabolic 2000 panelOrdered By: Rissa Browning on 10-01-2024 Albumin [Mass/Vol] 3.9 g/dL 3.9 - 4.9 g/dL [facility] ALP [Catalytic activity/Vol] 59 U/L 38 - 113 U/L [facility] ALT [Catalytic activity/Vol] 5 U/L Low 10 - 54 U/L [facility] Anion gap [Moles/Vol] 10 mmol/L 8 - 15 mmol/L [facility] AST [Catalytic activity/Vol] 9 U/L Low 14 - 40 U/L [facility] Bilirubin [Mass/Vol] 0.3 mg/dL 0.2 - 1 .3 mg/dL [facility] Calcium [Mass/Vol] 9.0 mg/dL 8.5 - 10. 2 mg/dL [facility] Chloride [Moles/Vol] 108 mmol/L High 98 - 10 7 mmol/L [facility] CO2 [Moles/Vol] 22 mmol/L 22 - 30 mmol/L [facility] Creatinine [Mass/Vol] 2.06 mg/dL High 0.73 - 1.22 mg/dL [facility] GFR/1.73 sq M.predicted among non-blacks MDRD (S/P/Bld) [Vol rate/Area] 33 mL/min/{1.73_m2} Low - PINF [facility] Comment on above: Estimated Glomerular Filtration Rate [...] High 74 - 99 mg/dL [facility] Comment on above: The [place] Diab[employer] Association (ADA) provides guidance for [...] Standards of Medical Care in Diabetes 2016, [place] [employer]. Diabetes Care. 2016.39(Suppl 1). Interpretation and review of laboratory results Abnormal [facility] Potassium [Moles/Vol] 4.6 mmol/L 3.7 - 5.1 mmol/L [facility] Protein [Mass/Vol] 6.3 g/dL 6.3 - 8.0 g/dL [facility] Sodium [Moles/Vol] 140 mmol/L 136 - 144 mmol/L [facility] Urea nitrogen [Mass/Vol] 34 mg/dL High 9 - 24 mg/dL [facility] Comprehensive metabolic 2000 panelon 10-01-2024 Albumin [Mass/Vol] 3.9 g/dL Normal 3.9-4.9 [facility] Comment on above: Order Comment: Speci men Type: BLOOD SPECIMEN [facility] Address: [address] [place] [address] Performed By: #### 2 4323-8 #### [id number] [address] [place] [address] [place] ALP [Catalytic activity/Vol] 59 U/L Normal 38-113 [facility] Comment on above: Order Comment: Speci men Type: BLOOD SPECIMEN [facility] Address: [address] [place] [address] Performed By: #### 2 4323-8 #### [facility] CLIA [id number] [address] [place] [address] [place] ALT [Catalytic activity/Vol] 5 U/L Low 10-54 [facility] Comment on above: Order Comment: Speci men Type: BLOOD SPECIMEN [facility]ing [facility] Address: [address] [place] [address] Performed By: #### 2 4323-8 #### [facility] [id number] [address] [place] [address] [place] Anion gap [Moles/Vol] 10 mmol/L Normal 8-15 [facility] Comment on above: Order Comment: Speci men Type: BLOOD SPECIMEN Ordering Facility: [facility] Address: [address] [place] [address] Performed By: #### 2 4323-8 #### [facility] CLIA [id number] [address] [place] [address] [place] AST [Catalytic activity/Vol] 9 U/L Low 14-40 [facility] Comment on above: Order Comment: Speci men Type: BLOOD SPECIMEN [facility] Address: [address] [place] [address] Performed By: #### 2 4323-8 #### [facility] CLIA [id number] [address] [place] [address] [place] Bilirubin [Mass/Vol] 0.3 mg/dL Normal 0.2-1.[address] [facility] Comment on above: Order Comment: Speci men Type: BLOOD SPECIMEN [facility] Address: [address] [place] [address] Performed By: #### 2 4323-8 #### [facility] CLIA [id number] [address] [place] [address] [place] Calcium [Mass/Vol] 9.0 mg/dL Normal 8.5-10.2 [facility] Comment on above: Order Comment: Speci men Type: BLOOD SPECIMEN Ordering Facility[facility] Address: [address] [place] [address] Performed By: #### 2 4323-8 #### [facility] CLIA [id number] [address] [place] [address] [place] Chloride [Moles/Vol] 108 mmol/L High 98-[address] [facility] Comment on above: Order Comment: Speci men Type: BLOOD SPECIMEN [facility] Address: [address] [place] [address] Performed By: #### 2 4323-8 #### [facility] CLIA [id number] [address] [place] [address] [place] CO2 [Moles/Vol] 22 mmol/L Normal 22-30 [facility] Comment on above: Order Comment: Speci caryl Type: BLOOD SPECIMEN [facility] Address: [address] [place] [address] Performed By: #### 2 4323-8 #### [facility] [id number] [address] [place] [address] [place] Creatinine [Mass/Vol] 2.06 mg/dL High 0.73-1.22 [facility] Comment on above: Order Comment: Speci men Type: BLOOD SPECIMEN [facility] Address: [address] [place] [address] Performed By: #### 2 4323-8 #### [facility] [id number] [address] [place] [address] [place] eGFRcr SerPlBld CKD-EPI 2020 33 mL/min/1.73m??? Low >=60 [facility] Comment on above: Order Comment: Speci men Type: BLOOD SPECIMEN [facility] Address: [address] [place] [address] Result Comment: Amy mated Glomerular Filtration Rate [...] GFR. Performed By: #### 2 4323-8 #### [facility] [id number] [address] [place] [address] [place] Glucose [Mass/Vol] 101 mg/dL High 74-99 [facility] Comment on above: Order Comment: Speci men Type: BLOOD SPECIMEN [facility] Address: [address] [place] [address] Result Comment: The [place] Diabetes Association (ADA) provides guidance for cutoff [...] Standards of Medical Care in Diabetes 2016, [place] Diabetes Association. Diabetes Care. 2016.39(Suppl 1). Performed By: #### 2 4323-8 #### [facility] [id number] [address] [place] [address] [place] Potassium [Moles/Vol] 4.6 mmol/L Normal 3.7-5.1 [facility] Comment on above: Order Comment: Speci men Type: BLOOD SPECIMEN [facility] Address: [address] [place], [place] [address] Performed By: #### 2 4323-8 #### [facility] [id number] [address] [place] [address] [place] Protein [Mass/Vol] 6.3 g/dL Normal 6.3-8.0 [facility] Comment on above: Order Comment: Speci men Type: BLOOD SPECIMEN [facility] Address: [address] [place] [address] Performed By: #### 2 4323-8 #### [facility] [id number] [address] [place] [address] [place] Sodium [Moles/Vol] 140 mmol/L Normal 136-144 [facility] Comment on above: Order Comment: Speci men Type: BLOOD SPECIMEN Order[facility] Address: [address] [place] [address] Performed By: #### 2 4323-8 #### [facility] CLIA [id number] [address] [place] [address] [place] Urea nitrogen [Mass/Vol] 34 mg/dL High 9-24 [facility] Comment on above: Order Comment: Speci men Type: BLOOD SPECIMEN [facility] Address: [address] [place] [address] Performed By: #### 2 4323-8 #### [facility] CLIA [id number] [address] [place] [address] [place] Basic metabolic 2000 panelon 09-27-2024 Anion gap [Moles/Vol] 10 mmol/L Normal 8-15 [facility] Comment on above: Order Comment: Speci men Type: BLOOD SPECIMENOrdering Facility: [facility] Address: [address] [place] [address] Performed By: #### 6 30-4, 26668-6 #### [facility] CLIA [id number] [address] [place] [address] [place] Calcium [Mass/Vol] 9.1 mg/dL Normal 8.5-10.2 [facility] Comment on above: Order Comment: Speci men Type: BLOOD SPECIMENOrdering Facility: [facility] Address: [address] [place] [address] Performed By: #### 6 30-4, 34570-5 #### [facility] CLIA [id number] [address] [place], [place] [address] [place] Chloride [Moles/Vol] 106 mmol/L Normal 98-[address] [facility] Comment on above: Order Comment: Speci men Type: BLOOD SPECIMENOrdering Facility: [facility] Address: [address] [place], [place] [address] Performed By: #### 6 30-4, 77469-5 #### [facility] CLIA [id number] [address] [place], [place] [address] [place] CO2 [Moles/Vol] 23 mmol/L Normal 22-30 [facility] Comment on above: Order Comment: Speci men Type: BLOOD SPECIMENOrdering Facility: [facility] Address: [address] [place] [address] Performed By: #### 6 30-4, 67413-4 #### [facility] CLIA [id number] [address] [place] [address] [place] Creatinine [Mass/Vol] 2.69 mg/dL High 0.73-1.22 [facility] Comment on above: Order Comment: Speci men Type: BLOOD SPECIMENOrdering Facility: [facility] Address: [address] [place] [address] Performed By: #### 6 30-4, 12718-6 #### [facility] CLIA [id number] [address] [place] [address] [place] eGFRcr SerPlBld CKD-EPI 2020 24 mL/min/1.73m??? Low >=60 [facility] Comment on above: Order Comment: Speci men Type: BLOOD SPECIMENOrdering Facility: [facility] Address: [address] [place] [address] Result Comment: Amy mated Glomerular Filtration Rate [...] accurately reflect actual GFR. Performed By: #### 6 30-4, 44208-7 #### [facility] CLIA [id number] [address] [place] [address] [place] Glucose [Mass/Vol] 94 mg/dL Normal 74-99 [facility] Comment on above: Order Comment: Speci men Type: BLOOD SPECIMENOrdering Facility: [facility] Address: [address] [place] [address] Result Comment: The [place] Diabetes Association (ADA) provides guidance for cutoff [...] Standards of Medical Care in Diabetes 2016, [place] [employer]. Diabetes Care. 2016.39(Suppl 1). Performed By: #### 6 30-4, 80436-1 #### [facility] CLIA [id number] [address] [place] [address] [place] Potassium [Moles/Vol] 5.3 mmol/L High 3.7-5.1 [facility] Comment on above: Order Comment: Speci men Type: BLOOD SPECIMENOrdering Facility: [facility] Address: [address] [place] [address] Performed By: #### 6 30-4, 85790-3 #### [facility] CLIA [id number] [address] [place] [address] [place] Sodium [Moles/Vol] 139 mmol/L Normal 136-144 [facility] Comment on above: Order Comment: Speci men Type: BLOOD SPECIMENOrdering Facility: [facility] Address: [address] [place] [address] Performed By: #### 6 30-4, 32121-6 #### [facility] CLIA [id number] [address] [place] [address] [place] Urea nitrogen [Mass/Vol] 41 mg/dL High 9-24 [facility] Comment on above: Order Comment: Speci men Type: BLOOD SPECIMENOrdering Facility: [facility] Address: [address] [place] [address] Performed By: #### 6 30-4, 61663-4 #### [facility] CLIA [id number] [address] [place] [address] [facility] CNOVon 09-25-2024 CNOV Office Visit (RADTWS ) ALEJANDRAABELARDO Spann ([id number]) 1950 M Date Time Provider Department 09/25/24 10:15 AM LUIGI BANKS RADTWS During your visit today, we recorded the following information about you: Temperature Pulse Blood pressure 97.5 degrees 56/minute 121/66 Shreya Souza, RN 09/25/2024 10:39 AM Signed Radiation Therapy - Nursing Note (OTV) PATIENT NAME: Abelardo Ivory PATIENT September 25, 2024 [facility] FACILITY/LOCATION: [facility] NURSING NOTE TYPE: PROSTATE - MALE PELVIS Subjective Data I am still having that pain when I urinated and sometimes just hits gideon" Additional Data Do you want to see a Diesel Locomotive Firer? No Status: Patient is male Stress Scale: On a scale of 0 to 10, what number best describes how much distress you have experienced in the past week?(0 being no distress and 10 being extreme distress) 2 Social work notified: Pt denied need to see nephrology social worker at this time. Nursing Assessment [...] 5 mg by mouth once daily. - ybszuqhtdxj-frfpbwtio-u ilanter (TRELEGY ELLIPTA) 200-62.5-25 mcg inhalation powder [...] Preop te (more content not included)... [facility] Ale 09-25-2024 CNPN Telephone (HEMUvinum) ABELARDO IVORY ([id number]) 1950 Date Time Provider Department 09/25/24 WOLF CRANE [...] 5 mg by mouth once daily. - zhzbwxsxssr-fzempwgqu-c ilanter (TRELEGY ELLIPTA) 200-62.5-25 mcg inhalation powder [...] for u (more content not included)... [facility] CBC W Auto Differential pane l (Bld)on 09-24-2024 Basophils (Bld) [#/Vol] 0.04 10*3/uL [facility] Basophils/100 WBC (Bld) 0.6 % [facility] Differential cell count method Nom (Bld) Auto [facility] Eosinophils (Bld) [#/Vol] 0.12 10*3/uL [facility] Eosinophils/100 WBC (Bld) 1.8 % [facility] Erythrocyte distribution width (RBC) [Ratio] 14.2 % 11.5 - 15.0 % [facility] Hematocrit (Bld) [Volume fraction] 35.6 % Low 39.0 - 51.0 % [facility] Hemoglobin (Bld) [Mass/Vol] 11.5 g/dL Low 13.0 - 17.0 g/dL [facility] Immature granulocytes (Bld) [#/Vol] NINF [facility] Immature granulocytes/100 WBC (Bld) 0.2 % [facility] Interpretation and review of laboratory results Abnormal [facility] Lymphocytes (Bld) [#/Vol] 1.81 10*3/uL [facility] Lymphocytes/100 WBC (Bld) 27.8 % [facility] MCH (RBC) [Entitic mass] 30.7 pg 26.0 - 34.0 pg [facility] MCHC (RBC) [Mass/Vol] 32.3 g/dL 30.5 - 36.0 g/dL [facility] MCV (RBC) [Entitic vol] 94.9 fL 80.0 - 100.0 fL [facility] Monocytes (Bld) [#/Vol] 0.57 10*3/uL [facility] Monocytes/100 WBC (Bld) 8.8 % [facility] Neutrophils (Bld) [#/Vol] 3.95 10*3/uL [facility] Neutrophils/100 WBC (Bld) 60.8 % [facility] Nucleated RBC (Bld) [#/Vol] NINF [facility] Nucleated RBC/100 WBC (Bld) [Ratio] 0.0 % /100 WBC [facility] Platelet mean volume (Bld) [Entitic vol] 8.2 fL Low 9.0 - 12.7 fL [facility] Platelets (Bld) [#/Vol] 151 10*3/uL [facility] RBC (Bld) [#/Vol] 3.75 10*6/uL Low 4.20 - 6.0 0 m/uL [facility] WBC (Bld) [#/Vol] 6.50 10*3/uL [facility] Basophils (Bld) [#/Vol] 0.04 10*3/uL Normal <0.11 [facility] Comment on above: Order Comment: Speci men Type: BLOOD SPECIMEN Order[facility] Facility: [facility] Address: [address] [place] [address] Performed By: #### 5 7021-8 #### [facility] [id number] [address] [place] [address] [place] Basophils/100 WBC (Bld) 0.6 % [facility] Comment on above: Order Comment: Speci men Type: BLOOD SPECIMEN Ordering Facility: [facility] Address: [address] [place] [address] Performed By: #### 5 7021-8 #### [facility] CLIA [id number] [address] [place] [address] [place] Differential cell count method Nom (Bld) Auto [facility] Comment on above: Order Comment: Speci men Type: BLOOD SPECIMEN Ordering Facility: [facility] Address: [address] [place] [address] Performed By: #### 5 7021-8 #### [facility] CLIA [id number] [address] [place] [address] [place] Eosinophils (Bld) [#/Vol] 0.12 10*3/uL Normal <0.46 [facility] Comment on above: Order Comment: Speci men Type: BLOOD SPECIMEN Ordering Facility: [facility] Address: [address] [place] [address] Performed By: #### 5 7021-8 #### [facility] CLIA [id number] [address] [place] [address] [place] Eosinophils/100 WBC (Bld) 1.8 % [facility] Comment on above: Order Comment: Speci men Type: BLOOD SPECIMEN Ordering [facility] Address: [address] [place] [address] Performed By: #### 5 7021-8 #### [facility] CLIA [id number] [address] [place] [address] [place] Erythrocyte distribution width (RBC) [Ratio] 14.2 % Normal 11.5-15.0 [facility] Comment on above: Order Comment: Speci men Type: BLOOD SPECIMEN Ordering Facility: [facility] Address: [address] [place] [address] Performed By: #### 5 7021-8 #### [facility] CLIA [id number] [address] [place] [address] [place] Hematocrit (Bld) [Volume fraction] 35.6 % Low 39.0-51.0 [facility] Comment on above: Order Comment: Speci men Type: BLOOD SPECIMEN Ordering Facility: [facility] Address: [address] [place] [address] Performed By: #### 5 7021-8 #### [facility] CLIA [id number] [address] [place] [address] [place] Hemoglobin (Bld) [Mass/Vol] 11.5 g/dL Low 13.0-17.0 [facility] Comment on above: Order Comment: Speci men Type: BLOOD SPECIMEN Ordering Facility: [facility] Address: [address] [place] [address] Performed By: #### 5 7021-8 #### [facility] CLIA [id number] [address] [place] [address] [place] Immature granulocytes (Bld) [#/Vol] 10*3/uL Normal <0.10 [facility] Comment on above: Order Comment: Speci men Type: BLOOD SPECIMEN Ordering Facility: [facility] Address: [address] [place] [address] Performed By: #### 5 7021-8 #### [facility] CLIA [id number] [address] [place] [address] [place] Immature granulocytes/100 WBC (Bld) 0.2 % [facility] Comment on above: Order Comment: Speci men Type: BLOOD SPECIMEN Ordering Facility: [facility] Address: [address] [place] [address] Performed By: #### 5 7021-8 #### [facility] CLIA [id number] [address] [place] [address] [place] Lymphocytes (Bld) [#/Vol] 1.81 10*3/uL Normal 1.00-4.00 [facility] Comment on above: Order Comment: Speci men Type: BLOOD SPECIMEN Ordering Facility: [facility] Address: [address] [place] [address] Performed By: #### 5 7021-8 #### [facility] CLIA [id number] [address] [place] [address] [place] Lymphocytes/100 WBC (Bld) 27.8 % [facility] Comment on above: Order Comment: Speci men Type: BLOOD SPECIMEN Ordering Facility: [facility] Address: [address] [place] [address] Performed By: #### 5 7021-8 #### [facility] CLIA [id number] [address] [place] [address] [place] MCH (RBC) [Entitic mass] 30.7 pg Normal 26.0-34.0 [facility] Comment on above: Order Comment: Speci men Type: BLOOD SPECIMEN Ordering Facility: [facility] Address: [address] [place] [address] Performed By: #### 5 7021-8 #### [facility] CLIA [id number] [address] [place] [address] [place] MCHC (RBC) [Mass/Vol] 32.3 g/dL Normal 30.5-36.0 [facility] Comment on above: Order Comment: Speci men Type: BLOOD SPECIMEN Ordering Facility: [facility] Address: [address] [place] [address] Performed By: #### 5 7021-8 #### [facility] CLIA [id number] [address] [place] [address] [place] OF [place] MCV (RBC) [Entitic vol] 94.9 fL Normal 80.0-100.0 [facility] Comment on above: Order Comment: Speci men Type: BLOOD SPECIMEN Ordering Facility: [facility] Address: [address] [place] [address] Performed By: #### 5 7021-8 #### [facility] CLIA [id number] [address] [place] [address] [place] Monocytes (Bld) [#/Vol] 0.57 10*3/uL Normal <0.87 [facility] Comment on above: Order Comment: Speci men Type: BLOOD SPECIMEN Ordering Facility: [facility] Address: [address] [place] [address] Performed By: #### 5 7021-8 #### [facility] CLIA [id number] [address] [place] [address] [place] Monocytes/100 WBC (Bld) 8.8 % [facility] Comment on above: Order Comment: Speci men Type: BLOOD SPECIMEN Ordering Facility: [facility] Address: [address] [place] [address] Performed By: #### 5 7021-8 #### [facility] CLIA [id number] [address] [place] [address] [place] Neutrophils (Bld) [#/Vol] 3.95 10*3/uL Normal 1.45-7.50 [facility] Comment on above: Order Comment: Speci men Type: BLOOD SPECIMEN Ordering Facility: [facility] Address: [address] [place] [address] Performed By: #### 5 7021-8 #### [facility] CLIA [id number] [address] [place] [address] [place] Neutrophils/100 WBC (Bld) 60.8 % [facility] Comment on above: Order Comment: Speci men Type: BLOOD SPECIMEN Ordering Facility: [facility] Address: [address] [place] [address] Performed By: #### 5 7021-8 #### [facility] CLIA [id number] [address] [place] [address] [place] Nucleated RBC (Bld) [#/Vol] 10*3/uL Normal <0.01 [facility] Comment on above: Order Comment: Speci men Type: BLOOD SPECIMEN Ordering Facility: [facility] Address: [address] [place] [address] Performed By: #### 5 7021-8 #### [facility] CLIA [id number] [address] [place] [address] [place] Nucleated RBC/100 WBC (Bld) [Ratio] 0.0 /100 WBC [facility] Comment on above: Order Comment: Speci men Type: BLOOD SPECIMEN Ordering Facility: [facility] Address: [address] [place] [address] Performed By: #### 5 7021-8 #### [facility] CLIA [id number] [address] [place] [address] [place] Platelet mean volume (Bld) [Entitic vol] 8.2 fL Low 9.0-12.7 [facility] Comment on above: Order Comment: Speci men Type: BLOOD SPECIMEN Ordering Facility: [facility] Address: [address] [place] [address] Performed By: #### 5 7021-8 #### [facility] CLIA [id number] [address] [place] [address] [place] Platelets (Bld) [#/Vol] 151 10*3/uL Normal 150-400 [facility] Comment on above: Order Comment: Speci men Type: BLOOD SPECIMEN Ordering Facility: [facility] Address: [address] [place] [address] Performed By: #### 5 7021-8 #### [facility] CLIA [id number] [address] [place] [address] [place] RBC (Bld) [#/Vol] 3.75 10*6/uL Low 4.20-6.00 [facility] Comment on above: Order Comment: Raul hutson Type: BLOOD SPECIMEN Ordering Facility: [facility] Address: [address] [place] [address] Performed By: #### 5 7021-8 #### [facility] CLIA [id number] [address] [place] [address] [facility] OF [place] WBC (Bld) [#/Vol] 6.50 10*3/uL Normal 3.70-11.00 [facility] Comment on above: Order Comment: Specju hutson Type: BLOOD SPECIMEN Ordering Facility: [facility] Address: [address] [place] [address] Performed By: #### 5 7021-8 #### [facility] CLIA [id number] [address] [place] [address] [facility] CNPMalina 09-24-2024 [facility] ABELARDO IVORY ([id number]) 1950 M Date Time Provider Department 09/24/24 LAKEISHA DAWKINS During your visit today, we recorded the following information about you: Shawna Prakash, ANGELA 09/24/2024 11:[address] Dawkins, Schedule him for BMP with possible hydration this coming ." Pt will be in for radiation at [...] 5 mg by mouth once daily. - ujnaddgwsfa-hvlfyzcfl-w ilanter (TRELEGY ELLIPTA) 200-62.5-25 mcg inhalation powder [...] Status:Closed by LEONARDO DOWNEY on 09/24/24 [facility] Comprehensive metabolic 2000 panelOrdered By: Rissa Browning on 09-24-2024 Albumin [Mass/Vol] 4.2 g/dL 3.9 - 4.9 g/dL [facility] ALP [Catalytic activity/Vol] 58 U/L 38 - 113 U/L [facility] ALT [Catalytic activity/Vol] 5 U/L Low 10 - 54 U/L [facility] Anion gap [Moles/Vol] 10 mmol/L 8 - 15 mmol/L [facility] AST [Catalytic activity/Vol] 10 U/L Low 14 - 40 U/L [facility] Bilirubin [Mass/Vol] 0.2 mg/dL 0.2 - 1 .3 mg/dL [facility] Calcium [Mass/Vol] 9.3 mg/dL 8.5 - 10. 2 mg/dL [facility] Chloride [Moles/Vol] 107 mmol/L 98 - 10 7 mmol/L [facility] CO2 [Moles/Vol] 23 mmol/L 22 - 30 mmol/L [facility] Creatinine [Mass/Vol] 2.14 mg/dL High 0.73 - 1.22 mg/dL [facility] GFR/1.73 sq M.predicted among non-blacks MDRD (S/P/Bld) [Vol rate/Area] 32 mL/min/{1.73_m2} Low - PINF [facility] Comment on above: Estimated Glomerular Filtration Rate [...] High 74 - 99 mg/dL [facility] Comment on above: The [place] Diabete s Association (ADA) provides guidance for [...] Standards of Medical Care in Diabetes 2016, [place] Diabetes Association. Diabetes Care. 2016.39(Suppl 1). Interpretation and review of laboratory results Abnormal [facility] Potassium [Moles/Vol] 4.8 mmol/L 3.7 - 5.1 mmol/L [facility] Protein [Mass/Vol] 6.7 g/dL 6.3 - 8.0 g/dL [facility] Sodium [Moles/Vol] 140 mmol/L 136 - 144 mmol/L [facility] Urea nitrogen [Mass/Vol] 32 mg/dL High 9 - 24 mg/dL [facility] Comprehensive metabolic 2000 panelon 09-24-2024 Albumin [Mass/Vol] 4.2 g/dL Normal 3.9-4.9 [facility] Comment on above: Order Comment: Speci men Type: BLOOD SPECIMEN Ordering Facility: [facility] Address: [address] [place] [address] Performed By: #### 2 4323-8 #### [facility] CLIA [id number] [address] [place] [address] [place] ALP [Catalytic activity/Vol] 58 U/L Normal 38-113 [facility] Comment on above: Order Comment: Speci men Type: BLOOD SPECIMEN Ordering Facility: [facility] Address: [address] [place] [address] Performed By: #### 2 4323-8 #### [facility] CLIA [id number] [address] [place] [address] [place] ALT [Catalytic activity/Vol] 5 U/L Low 10-54 [facility] Comment on above: Order Comment: Speci men Type: BLOOD SPECIMEN Ordering Facility: [facility] Address: [address] [place] [address] Performed By: #### 2 4323-8 #### [facility] CLIA [id number] [address] [place] [address] [place] Anion gap [Moles/Vol] 10 mmol/L Normal 8-15 [facility] Comment on above: Order Comment: Speci men Type: BLOOD SPECIMEN Ordering Facility: [facility] Address: [address] [place] [address] Performed By: #### 2 4323-8 #### [facility] CLIA [id number] [address] [place] [address] [place] AST [Catalytic activity/Vol] 10 U/L Low 14-40 [facility] Comment on above: Order Comment: Speci men Type: BLOOD SPECIMEN Ordering Facility: [facility] Address: [address] [place] [address] Performed By: #### 2 4323-8 #### [facility] CLIA [id number] [address] [place] [address] [place] Bilirubin [Mass/Vol] 0.2 mg/dL Normal 0.2-1.[address] [facility] Comment on above: Order Comment: Speci men Type: BLOOD SPECIMEN Ordering Facility: [facility] Address: [address] [place] [address] Performed By: #### 2 4323-8 #### [facility] CLIA [id number] [address] [place] [address] [place] Calcium [Mass/Vol] 9.3 mg/dL Normal 8.5-10.2 [facility] Comment on above: Order Comment: Speci men Type: BLOOD SPECIMEN Ordering Facility: [facility] Address: [address] [place] [address] Performed By: #### 2 4323-8 #### [facility] CLIA [id number] [address] [place] [address] [place] Chloride [Moles/Vol] 107 mmol/L Normal 98-[address] [facility] Comment on above: Order Comment: Speci men Type: BLOOD SPECIMEN Ordering Facility: [facility] Address: [address] [place] [address] Performed By: #### 2 4323-8 #### [facility] CLIA [id number] [address] [place] [address] [place] CO2 [Moles/Vol] 23 mmol/L Normal 22-30 [facility] Comment on above: Order Comment: Speci men Type: BLOOD SPECIMEN Ordering Facility: [facility] Address: [address] [id number] Performed By: #### 2 4323-8 #### [facility] CLIA [id number] [address] [place] [address] [place] Creatinine [Mass/Vol] 2.14 mg/dL High 0.73-1.22 [facility] Comment on above: Order Comment: Raul hutson Type: BLOOD SPECIMEN Ordering Facility: [facility] Address: [address] [place] [address] Performed By: #### 2 4323-8 #### [facility] CLIA [id number] [address] [place] [address] [place] eGFRcr SerPlBld CKD-EPI 2020 32 mL/min/1.73m??? Low >=60 [facility] Comment on above: Order Comment: Raul hutson Type: BLOOD SPECIMEN Ordering Facility: [facility] Address: [address] [place] [address] Result Comment: Amy mated Glomerular Filtration Rate [...] GFR. Performed By: #### 2 4323-8 #### [facility] CLIA [id number] [address] [place] [address] [place] Glucose [Mass/Vol] 107 mg/dL High 74-99 [facility] Comment on above: Order Comment: Raul hutson Type: BLOOD SPECIMEN Ordering Facility: [facility] Address: [address] [place] [address] Result Comment: The [place] Diabetes Association (ADA) provides guidance for cutoff [...] Standards of Medical Care in Diabetes 2016, [place] Diabetes Association. Diabetes Care. 2016.39(Suppl 1). Performed By: #### 2 4323-8 #### [facility] CLIA [id number] [address] [place] [address] [place] Potassium [Moles/Vol] 4.8 mmol/L Normal 3.7-5.1 [facility] Comment on above: Order Comment: Michellei caryl Type: BLOOD SPECIMEN Ordering Facility: [facility] Address: [address] [place] [address] Performed By: #### 2 4323-8 #### [id number] [address] [place] [address] [place] Protein [Mass/Vol] 6.7 g/dL Normal 6.3-8.0 [facility] Comment on above: Order Comment: Raul hutson Type: BLOOD SPECIMEN Ordering Facility: [facility] Address: [address] [place] [address] Performed By: #### 2 4323-8 #### [facility] CLIA [id number] [address] [place] [address] [place] Sodium [Moles/Vol] 140 mmol/L Normal 136-144 [facility] Comment on above: Order Comment: Michellei men Type: BLOOD SPECIMEN Ordering Facility: [facility] Address: [address] [place] [address] Performed By: #### 2 4323-8 #### [facility] CLIA [id number] [address] [place] [address] [place] Urea nitrogen [Mass/Vol] 32 mg/dL High 9-24 [facility] Comment on above: Order Comment: Speci men Type: BLOOD SPECIMEN Ordering Facility: [facility] Address: [place] [address] Performed By: #### 2 4323-8 #### [facility] CLIA [id number] [address] [place] [address] [place] CT ABD/PEL WO IVCONon 2024 CT ABD/PEL WO IVCON * * *Final Report* * * DATE OF EXAM: Sep 18 2024 9:19AM [facility] 0531 - CT ABD/PEL WO IVCON [...] and hydroureter. Small retroperitoneal nodes are stable. Junior Engineer: JESUS ALBERTO Transcribe Date/Time: Sep 19 2024 9:51A Dictated by : DEANNA RAMIREZ MD This examination was interpreted and the report reviewed and electronically signed by: DEANNA RAMIREZ MD on Sep 19 2024 10:05AM EST [id number] [facility] ABELARDO IVORY ([id number]) 1950 M Date Time Provider Department 09/12/24 ANTONI POLK During your visit today, we recorded the following information about you: Antoni Polk LISW 09/12/2024 2:15 PM Signed PSYCHOSOCIAL SCREENING ASSESSMENT Date of Service: September 12, 2024 Abelardo Spenceey is a 74 year old male being [...] Father is Child/Children: Yes. How many? 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 Unknown EMPLOYMENT/FINANCIAL/HE ALTH INSURANCE: Employment: Retired Income source: Social Security and Custodial Pension Insurance: Medicare with co-insurance Prescription coverage: Yes Is the patient appropriate for referral to [facility] Assistance program? No Financial Distress: No [place]: No FOOD INSECURITY Within the past year, [...] DIRECTIVES/LEGAL DOCUMENTS: Living Will: Yes Scanned into [employer]: Yes, 2019 Health Care Durable Power of Conflict Resolution Professional: Yes Scanned into [employer]: No, pt reports he will get a copy of this document from [facility] at his upcoming appointment Guardianship: No Scanned [...] and h (more content not included)... [facility] ABELARD[facility] IVORY ([id number]) 1950 M Date Time Provider Department 09/12/24 MATTHEW GU During your visit today, we recorded the following information about you: Matthew Gu, RN 09/12/2024 11:11 AM Signed Completed chemo education. No antimeric on file, pended Zofran. C/o pain. Pain assessment completed. Patient is asking if there is something else besides tylenol he can take for pain? GENERALIZED PAIN Where is the pain? "On my penis" When did you first notice the pain? Probably about 9 weeks, from the time they run the first camera on me". Patient spoke to his urologist awhile ago and he stated the urologist prescribed antibiotics. Patient stated he doesn't have any burning "it just aches". The pain was the same prior to the antibiotics. How intense is the pain right now (scale of 1-10)? 09/16 How do you describe the pain: aching Does the pain radiate anywhere? no Has the pain changed since it started? "Not a whole lot" Is the pain constant or intermittent? Constant. Even after tylenol there is still a dull ache. What makes it better? Pinching it What makes it worse? Urinating "it hurts a little more when I urinate". Have you had this pain before? no What are you taking anything for the pain? Tylenol "eases" up the pain. 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 - jackzcgfjns-kjboosomx-c ilanter (TRELEGY ELLIPTA) 200-62.5-25 mcg inhalation powder [...] 02/14/2019 Thrombocytopenia (more content not included)... [facility] CNNURSEon 09-07-2024 CNNURSE Nurse Visit (RADTWS) ALEJANDRAABELARDO Maria Ines ([id number]) 1950 M Date Time Provider Department 09/07/24 11:00 AM [facility] RADTWS During your visit today, we recorded the following information about you: Unruly Diaz RN 09/07/2024 10:59 AM Signed Radiation Therapy - Patient Education Note PATIENT NAME: Abelardo Ivory PATIENT September 07, 2024 [facility] FACILITY/LOCATION: [facility] READINESS TO LEARN Cognitive Ability: Alert and [...] phone list, Bladder function, Diarrhea, Fatigue, and [facility] instructions, XRT sheet and Aquaphor handout. 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 Patient has an Onbody or Implanted device: [...] 5 mg by mouth once daily. 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 Junior Engineer: JESUS ALBERTO Transcribe Date/Time: Sep 07 2024 12:38P Dictated by : HAYLEE STARKEY DO This examination was interpreted and the report reviewed and electronically signed by: HAYLEE STARKEY DO on Sep 07 2024 12:42PM EST [id number] [facility] US Kidney - bilateral and Ur inary bladderon 09-07-2024 Radiology Study observation (narrative) [facility] IMPRESSION: Mild RIGHT and moderate LEFT hydronephrosis. 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 Junior Engineer: JESUS ALBERTO Transcribe Date/Time: Sep 07 2024 12:38P Dictated by : HAYLEE STARKEY DO This examination was interpreted and the report reviewed and electronically signed by: HAYLEE STARKEY DO on Sep 07 2024 12:42PM EST DIVISION OF RADIOLOGY * * *Final Report* * * DATE OF EXAM: Sep 07 2024 12:20PM [facility] 1055 - US KIDNEY/BLADDER / [...] to known neoplasm. 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 Junior Engineer: JESUS ALBERTO Transcribe Date/Time: Sep 07 2024 12:38P Dictated by : HAYLEE STARKEY DO This examination was interpreted and the report reviewed and electronically signed by: HAYLEE STARKEY DO on Sep 07 2024 12:42PM [facility] US Kidney - bilateral and Ur inary bladderOrdered By: Ccf Provider on 09-07-2024 [facility] CNOVon 09-06-2024 CNOV Office Visit (RADTWS ) IVORYABELARDO LEON ([id number]) 1950 M Date Time Provider Department 09/06/24 10:30 AM LUIGI BANKS During your visit today, we recorded the following information about you: Temperature Pulse Respiration Blood pressure 97.7 degrees 74/minute 15/minute 136/63 Weight 69.2 kg Unruly Diaz RN 09/14/2024 11:12 AM Signed Radiation Therapy - Nursing Note (Consult) PATIENT NAME: Abelardo Ivory PATIENT September 06, 2024 [facility] FACILITY/LOCATION: [facility] Chief Complaint: consult Reason for visit: Consult. Referring physician: Internal provider Dr Dawkins Subjective Data: see pain assessment Additional Data Do you want to see a Diesel Locomotive Firer? No Are you interested in information about [...] Take 5 mg by mouth once daily. rhsvoscgmxs-srhyticsk-n ilanter (TRELEGY ELLIPTA) 200-62.5-25 mcg inhalation powder [...] Abdominal aortic aneurysm 09/2012 Anemia Aortic stenosis 2013 Arthritis Bilateral inguinal hernia Carpal tunnel syndrome [...] SURGICAL HISTORY OF 12/28/2021 AAA repair - "Stable status post graft repair of abdominal aortic aneurysm." PAST SURGICAL HISTORY OF 2024 Hernia repair PAST SURGICAL HISTORY OF 06/27/2024 Biopsy bladder REMV CATARACT EXTRACAP,INSERT LENS Left REMV CATARACT EXTRACAP,INSERT LENS Right FAMILY HISTORY Problem Relation Age of Onset Diabetes Mother Emphysema Mother Asthma S (more content not included)... [facility] CNPNon 09-06-2024 CNPN Normal [facility] CBC W Auto Differential pane l (Bld)on 09-05-2024 Basophils (Bld) [#/Vol] 0.05 10*3/uL [facility] Basophils/100 WBC (Bld) 0.7 % [facility] Differential cell count method Nom (Bld) Auto [facility] Eosinophils (Bld) [#/Vol] 0.23 10*3/uL [facility] Eosinophils/100 WBC (Bld) 3.1 % [facility] Erythrocyte distribution width (RBC) [Ratio] 13.4 % 11.5 - 15.0 % [facility] Hematocrit (Bld) [Volume fraction] 40 % 39.0 - 51.0 % [facility] Hemoglobin (Bld) [Mass/Vol] 12.7 g/dL Low 13.0 - 17.0 g/dL [facility] Immature granulocytes (Bld) [#/Vol] [facility] Immature granulocytes/100 WBC (Bld) 0.3 % [facility] Interpretation and review of laboratory results Abnormal [facility] Lymphocytes (Bld) [#/Vol] 2.43 10*3/uL [facility] Lymphocytes/100 WBC (Bld) 32.7 % [facility] MCH (RBC) [Entitic mass] 29.9 pg 26.0 - 34.0 pg [facility] MCHC (RBC) [Mass/Vol] 31.8 g/dL 30.5 - 36.0 g/dL [facility] MCV (RBC) [Entitic vol] 94.1 fL 80.0 - 100.0 fL [facility] Monocytes (Bld) [#/Vol] 0.56 10*3/uL [facility] Monocytes/100 WBC (Bld) 7.5 % [facility] Neutrophils (Bld) [#/Vol] 4.15 10*3/uL [facility] Neutrophils/100 WBC (Bld) 55.7 % [facility] Nucleated RBC (Bld) [#/Vol] [facility] Nucleated RBC/100 WBC (Bld) [Ratio] 0 % /100 WBC [facility] Platelet mean volume (Bld) [Entitic vol] 8.3 fL Low 9.0 - 12.7 fL [facility] Platelets (Bld) [#/Vol] 207 10*3/uL [facility] RBC (Bld) [#/Vol] 4.25 10*6/uL 4.20 - 6.0 0 m/uL [facility] WBC (Bld) [#/Vol] 7.44 10*3/uL [facility] Basophils (Bld) [#/Vol] 0.05 10*3/uL Normal <0.11 [facility] Comment on above: Order Comment: Speci men Type: BLOOD SPECIMEN Ordering Facility: [facility] Address: [address] [place] [address] Performed By: #### 5 7021-8 #### [facility] CLIA [id number] [address] [place] [address] [place] [address] [facility] Basophils/100 WBC (Bld) 0.7 % [facility] Comment on above: Order Comment: Speci men Type: BLOOD SPECIMEN Ordering Facility: [facility] Address: [address] [place] [address] [address] Performed By: #### 5 7021-8 #### [facility] CLIA [id number] [address] [place] [address] [place] Differential cell count method Nom (Bld) Auto [facility] Comment on above: Order Comment: Speci men Type: BLOOD SPECIMEN Ordering Facility: [facility] Address: [address] [place] [address] Performed By: #### 5 7021-8 #### [facility] CLIA [id number] [address] [place] [address] [place] Eosinophils (Bld) [#/Vol] 0.23 10*3/uL Normal <0.46 [facility] Comment on above: Order Comment: Speci men Type: BLOOD SPECIMEN Ordering Facility: [facility] Address: [address] [place] [address] Performed By: #### 5 7021-8 #### [facility] CLIA [id number] [address] [place] [address] [place] Eosinophils/100 WBC (Bld) 3.1 % [facility] Comment on above: Order Comment: Speci men Type: BLOOD SPECIMEN Ordering Facility: [facility] Address: [address] [place] [address] Performed By: #### 5 7021-8 #### [facility] CLIA [id number] [address] [place] [address] [place] Erythrocyte distribution width (RBC) [Ratio] 13.4 % Normal 11.5-15.0 [facility] Comment on above: Order Comment: Speci men Type: BLOOD SPECIMEN Ordering Facility: [facility] Address: [address] [place] [address] Performed By: #### 5 7021-8 #### [facility] CLIA [id number] [address] [place] [address] [place] Hematocrit (Bld) [Volume fraction] 40.0 % Normal 39.0-51.0 [facility] Comment on above: Order Comment: Speci men Type: BLOOD SPECIMEN Ordering Facility: [facility] Address: [address] [place] [address] Performed By: #### 5 7021-8 #### [facility] CLIA [id number] [address] [place] [address] [place] Hemoglobin (Bld) [Mass/Vol] 12.7 g/dL Low 13.0-17.0 [facility] Comment on above: Order Comment: Speci men Type: BLOOD SPECIMEN Ordering Facility: [facility] Address: [address] [place], [place] [address] Performed By: #### 5 7021-8 #### [facility] CLIA [id number] [address] [place] [address] [place] Immature granulocytes (Bld) [#/Vol] 10*3/uL Normal <0.10 [facility] Comment on above: Order Comment: Speci men Type: BLOOD SPECIMEN Ordering Facility: [facility] Address: [address] [place] [address] Performed By: #### 5 7021-8 #### [facility] CLIA [id number] [address] [place] [address] [place] Immature granulocytes/100 WBC (Bld) 0.3 % [facility] Comment on above: Order Comment: Speci men Type: BLOOD SPECIMEN Ordering Facility: [facility] Address: [address] [place] [address] Performed By: #### 5 7021-8 #### [facility] CLIA [id number] [address] [place] [address] [place] Lymphocytes (Bld) [#/Vol] 2.43 10*3/uL Normal 1.00-4.00 [facility] Comment on above: Order Comment: Speci men Type: BLOOD SPECIMEN Ordering Facility: [facility] Address: [address] [place] [address] Performed By: #### 5 7021-8 #### [facility] CLIA [id number] [address] [place] [address] [place] Lymphocytes/100 WBC (Bld) 32.7 % [facility] Comment on above: Order Comment: Speci men Type: BLOOD SPECIMEN Ordering Facility: [facility] Address: [address] [place] [address] Performed By: #### 5 7021-8 #### [facility] CLIA [id number] [address] [place] [address] [place] MCH (RBC) [Entitic mass] 29.9 pg Normal 26.0-34.0 [facility] Comment on above: Order Comment: Speci men Type: BLOOD SPECIMEN Ordering Facility: [facility] Address: [address] [place] [address] Performed By: #### 5 7021-8 #### [id number] [address] [place] [address] [place] MCHC (RBC) [Mass/Vol] 31.8 g/dL Normal 30.5-36.0 [facility] Comment on above: Order Comment: Speci men Type: BLOOD SPECIMEN Ordering Facility: [facility] Address: [address] [place] [address] Performed By: #### 5 7021-8 #### [id number] [address] [place] [address] [place] MCV (RBC) [Entitic vol] 94.1 fL Normal 80.0-100.0 [facility] Comment on above: Order Comment: Speci men Type: BLOOD SPECIMEN Ordering Facility: [facility] Address: [address] [place] [address] Performed By: #### 5 7021-8 #### [facility] CLIA [id number] [address] [place] [address] [place] Monocytes (Bld) [#/Vol] 0.56 10*3/uL Normal <0.87 [facility] Comment on above: Order Comment: Speci men Type: BLOOD SPECIMEN Ordering Facility: [facility] Address: [address] [place] [address] Performed By: #### 5 7021-8 #### [facility] CLIA [id number] [address] [place] [address] [place] Monocytes/100 WBC (Bld) 7.5 % [facility] Comment on above: Order Comment: Speci men Type: BLOOD SPECIMEN Ordering Facility: [facility] Address: [address] [place] [address] Performed By: #### 5 7021-8 #### [facility] CLIA [id number] [address] [place] [address] [place] Neutrophils (Bld) [#/Vol] 4.15 10*3/uL Normal 1.45-7.50 [facility] Comment on above: Order Comment: Speci men Type: BLOOD SPECIMEN Ordering Facility: [facility] Address: [address] [place] [address] Performed By: #### 5 7021-8 #### [facility] CLIA [id number] [address] [place] [address] [place] Neutrophils/100 WBC (Bld) 55.7 % [facility] Comment on above: Order Comment: Speci men Type: BLOOD SPECIMEN Ordering Facility: [facility] Address: [address] [place] [address] Performed By: #### 5 7021-8 #### [facility] CLIA [id number] [address] [place] [address] [place] Nucleated RBC (Bld) [#/Vol] 10*3/uL Normal <0.01 [facility] Comment on above: Order Comment: Speci men Type: BLOOD SPECIMEN Ordering Facility: [facility] Address: [address] [place] [address] Performed By: #### 5 7021-8 #### [facility] CLIA [id number] [address] [place] [address] [place] Nucleated RBC/100 WBC (Bld) [Ratio] 0.0 /100 WBC [facility] Comment on above: Order Comment: Speci men Type: BLOOD SPECIMEN Ordering Facility: [facility] Address: [facility] [place] [id number] Performed By: #### 5 7021-8 #### [facility] CLIA [id number] [address] [place] [address] [place] Platelet mean volume (Bld) [Entitic vol] 8.3 fL Low 9.0-12.7 [facility] Comment on above: Order Comment: Speci men Type: BLOOD SPECIMEN Ordering Facility: [facility] Address: [address] [place], [place] [address] Performed By: #### 5 7021-8 #### [facility] CLIA [id number] [address] [place] [address] [place] Platelets (Bld) [#/Vol] 207 10*3/uL Normal 150-400 [facility] Comment on above: Order Comment: Speci men Type: BLOOD SPECIMEN Ordering Facility: [facility] Address: [address] [place] [address] Performed By: #### 5 7021-8 #### [facility] CLIA [id number] [address] [place] [address] [place] RBC (Bld) [#/Vol] 4.25 10*6/uL Normal 4.20-6.00 [facility] Comment on above: Order Comment: Speci men Type: BLOOD SPECIMEN Ordering Facility: [facility] Address: [address] [place] [address] Performed By: #### 5 7021-8 #### [facility] CLIA [id number] [address] [place] [address] [place] WBC (Bld) [#/Vol] 7.44 10*3/uL Normal 3.70-11.00 [facility] Comment on above: Order Comment: Speci men Type: BLOOD SPECIMEN Ordering Facility: [facility] Address: [facility] [place] [address] Performed By: #### 5 7021-8 #### [facility] CLIA [id number] [address] [place], [place] [address] [place] CNOVSPon 09-05-2024 CNOVSP Visit (SP) Office (HEMAWS) ABELARDO IVORY ([id number]) 1950 M Date Time Provider Department 09/05/24 [...] urine. Saw Dr. Winston. Had TURBT with "chemo flush." Path below. Referred to [facility] b/c patient declined cystectomy. Per Dr. Christianson's note dated 07/26/2024, "June 2024, began experiencing flank pain, and hematuria, [...] the past 1-1.5 ppd since age 15 years" Pathology from [facility] reviewed at main campus: A. Urinary bladder, [...] cough. Clear sputum. Sees Dr. Zuñiga at [facility]. Smokes about 1/2 ppd. No alcohol. PAST [...] SURGICAL HISTORY OF 12/28/2021 AAA repair - "Stable status post graft repair of abdominal aortic aneurysm." PAST SURGICAL HISTORY OF 2024 Hernia repair [...] Take 5 mg by mouth once daily. srxjevzpreu-wuznibhkr-b ilanter (TRELEGY ELLIPTA) 200-62.5-25 mcg inhalation powder [...] (Patient not (more content not included)... 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 - cholecalciferol, vitamin D3, (VITAMIN D-3) 10 mcg (400 unit) cap Take 400 Units by mouth once daily. - amLODIPine (NORVASC) 5 mg tablet Take 5 mg by mouth once daily. - avtuouhrhvn-enbxlpeaq-l ilanter (TRELEGY ELLIPTA) 200-62.5-25 mcg inhalation powder [...] Status:Closed by MATTHEW GU on 09/05/24 [facility] CNPN Telephone (HEMAWS) ABELARDO IVORY ([id number]) 1950 Date Time Provider Department 09/05/24 MASCI, LAKEISHA A HEMAWS During your visit today, we recorded the [...] scheduled for potential nephrostomy tube placement at [facility] or [facility]. Chelsea Gutierres 09/06/2024 10:09 AM Addendum Scheduled US for 09/07 PICC LINE 09/10 @ 10 [facility] Stacy Collado MD 09/06/2024 9:51 AM Signed Absolutely- will add antegrade stent to procedure if IR is able MD Lizzette Rosales, Megha 09/06/2024 12:15 PM Signed Received call from [facility] stating they are unable to insert picc with order placed. She states they need a Tunneled Picc ordered and [facility] IR would schedule that procedure. Elizabeth Ludwig [...] 10:49 AM Signed PICC orders faxed to [facility] IR; needs placed on 09/21/2024. 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 [[id number]] Order #: [id number] Prescriptions as of 09/10/2024 - phenazopyridine (PYRIDIUM) 100 mg tablet Take 100 mg by mouth three times a day. - cholecalciferol, vitamin D3, (VITAMIN D-3) 10 mcg (400 unit) cap Take 400 Units by mouth once daily. - amLODIPine (NORVASC) 5 mg tablet Take 5 mg by mouth once daily. - vxgupkqhrkb-srgidzzzz-f ilanter (TRELEGY ELLIPTA) 200-62.5-25 mcg inhalation powder [...] testing [Z (more content not included)... [facility] Comprehensive metabolic 2000 panelOrdered By: Jessie Stewart on 09-05-2024 Albumin [Mass/Vol] 4.4 g/dL 3.9 - 4.9 g/dL [facility] ALP [Catalytic activity/Vol] 75 U/L 38 - 113 U/L [facility] ALT [Catalytic activity/Vol] 8 U/L Low 10 - 54 U/L [facility] Anion gap [Moles/Vol] 15 mmol/L 8 - 15 mmol/L [facility] AST [Catalytic activity/Vol] 14 U/L 14 - 40 U/L [facility] Bilirubin [Mass/Vol] 0.3 mg/dL 0.2 - 1 .3 mg/dL [facility] Calcium [Mass/Vol] 9.1 mg/dL 8.5 - 10. 2 mg/dL [facility] Chloride [Moles/Vol] 103 mmol/L 98 - 10 7 mmol/L [facility] CO2 [Moles/Vol] 18 mmol/L Low 22 - 30 mmol/L [facility] Creatinine [Mass/Vol] 2.23 mg/dL High 0.73 - 1.22 mg/dL [facility] GFR/1.73 sq M.predicted among non-blacks MDRD (S/P/Bld) [Vol rate/Area] 30 mL/min/{1.73_m2} Low - PINF [facility] Comment on above: Estimated Glomerular Filtration Rate [...] High 74 - 99 mg/dL [facility] Comment on above: The [place] Diab[employer] s Association (ADA) provides guidance for [...] Standards of Medical Care in Diabetes 2016, [place] Diabetes Association. Diabetes Care. 2016.39(Suppl 1). Interpretation and review of laboratory results Abnormal [facility] Potassium [Moles/Vol] 5.3 mmol/L High 3.7 - 5.1 mmol/L [facility] Protein [Mass/Vol] 7.4 g/dL 6.3 - 8.0 g/dL [facility] Sodium [Moles/Vol] 136 mmol/L 136 - 144 mmol/L [facility] Urea nitrogen [Mass/Vol] 35 mg/dL High 9 - 24 mg/dL [facility] Comprehensive metabolic 2000 panelon 09-05-2024 Albumin [Mass/Vol] 4.4 g/dL Normal 3.9-4.9 [facility] Comment on above: Order Comment: Speci men Type: BLOOD SPECIMENOrdering Facility: [facility] Address: [address] [place] [address] Performed By: #### 6 30-4, 83175-5 #### [facility] CLIA [id number] [address] [place] [address] [place] ALP [Catalytic activity/Vol] 75 U/L Normal 38-113 [facility] Comment on above: Order Comment: Speci men Type: BLOOD SPECIMENOrdering Facility: [facility] Address: [address] [place] [address] Performed By: #### 6 30-4, 39355-0 #### [facility] CLIA [id number] [address] [place] [address] [place] ALT [Catalytic activity/Vol] 8 U/L Low 10-54 [facility] Comment on above: Order Comment: Speci men Type: BLOOD SPECIMENOrdering Facility: [facility] Address: [address] [place] [address] Performed By: #### 6 30-4, 57780-0 #### [facility] CLIA [id number] [address] [place] [address] [place] Anion gap [Moles/Vol] 15 mmol/L Normal 8-15 [facility] Comment on above: Order Comment: Speci men Type: BLOOD SPECIMENOrdering Facility: [facility] Address: [address] [place] [address] Performed By: #### 6 30-4, 97321-3 #### [facility] CLIA [id number] [address] [place] [address] [place] AST [Catalytic activity/Vol] 14 U/L Normal 14-40 [facility] Comment on above: Order Comment: Speci men Type: BLOOD SPECIMENOrdering Facility: [facility] Address: [address] [place] [address] Performed By: #### 6 30-4, 60606-8 #### [facility] CLIA [id number] [address] [place], [place] [address] [place] Bilirubin [Mass/Vol] 0.3 mg/dL Normal 0.2-1.[address] [facility] Comment on above: Order Comment: Speci men Type: BLOOD SPECIMENOrdering Facility: [facility] Address: [address] [place] [address] Performed By: #### 6 30-4, 33421-2 #### [facility] CLIA [id number] [address] [place] [address] [place] Calcium [Mass/Vol] 9.1 mg/dL Normal 8.5-10.2 [facility] Comment on above: Order Comment: Speci men Type: BLOOD SPECIMENOrdering Facility: [facility] Address: [address] [place] [address] Performed By: #### 6 30-4, 72684-3 #### [facility] CLIA [id number] [address] [place] [address] [place] Chloride [Moles/Vol] 103 mmol/L Normal 98-[address] [facility] Comment on above: Order Comment: Speci men Type: BLOOD SPECIMENOrdering Facility: [facility] Address: [address] [place] [address] Performed By: #### 6 30-4, 77926-4 #### [facility] CLIA [id number] [address] [place] [address] [place] CO2 [Moles/Vol] 18 mmol/L Low 22-30 [facility] Comment on above: Order Comment: Speci men Type: BLOOD SPECIMENOrdering Facility: [facility] Address: [address] [place] [address] Performed By: #### 6 30-4, 68038-0 #### [facility] CLIA [id number] [address] [place] [address] [place] Creatinine [Mass/Vol] 2.23 mg/dL High 0.73-1.22 [facility] Comment on above: Order Comment: Raul hutson Type: BLOOD SPECIMENOrdering Facility: [facility] Address: [address] [place] [address] Performed By: #### 6 30-4, 27628-8 #### [facility] CLIA [id number] [address] [place] [address] [place] eGFRcr SerPlBld CKD-EPI 2020 30 mL/min/1.73m??? Low >=60 [facility] Comment on above: Order Comment: Raul hutson Type: BLOOD SPECIMENOrdering Facility: [facility] Address: [address] [place] [address] Result Comment: Amy mated Glomerular Filtration Rate [...] accurately reflect actual GFR. Performed By: #### 6 30-4, 22663-8 #### [facility] CLIA [id number] [address] [place] [address] [place] Glucose [Mass/Vol] 104 mg/dL High 74-99 [facility] Comment on above: Order Comment: Raul hutson Type: BLOOD SPECIMENOrdering Facility: [facility] Address: [address] [place] [address] Result Comment: The [place] Diabetes Association (ADA) provides guidance for cutoff [...] Standards of Medical Care in Diabetes 2016, [place] Diabetes Association. Diabetes Care. 2016.39(Suppl 1). Performed By: #### 6 30-4, 63722-7 #### [facility] CLIA [id number] [address] [place] [address] [place] Potassium [Moles/Vol] 5.3 mmol/L High 3.7-5.1 [facility] Comment on above: Order Comment: Speci men Type: BLOOD SPECIMENOrdering Facility: [facility] Address: [address] [place] [address] Performed By: #### 6 30-4, 90570-1 #### [facility] CLIA [id number] [address] [place] [address] [place] Protein [Mass/Vol] 7.4 g/dL Normal 6.3-8.0 [facility] Comment on above: Order Comment: Speci men Type: BLOOD SPECIMENOrdering Facility: [facility] Address: [address] [place] [address] Performed By: #### 6 30-4, 79356-0 #### [facility] CLIA [id number] [address] [place] [address] [place] Sodium [Moles/Vol] 136 mmol/L Normal 136-144 [facility] Comment on above: Order Comment: Speci men Type: BLOOD SPECIMENOrdering Facility: [facility] Address: [address] [place], [place] [address] Performed By: #### 6 30-4, 86652-8 #### [facility] CLIA [id number] [address] [place], [place] [address] [place] Urea nitrogen [Mass/Vol] 35 mg/dL High 9-24 [facility] Comment on above: Order Comment: Speci men Type: BLOOD SPECIMENOrdering Facility: [facility] Address: [address] [place] [address] Performed By: #### 6 30-4, 71619-2 #### [facility] CLIA [id number] [address] [place] [address] [place] DPYD/UGT1A1 GENOTYPING PANEL on 09-05-2024 DPYD/UGT1A1 GENOTYPING PANEL RESULT [facility] Comment on above: Order Comment: Speci men Type: BLOOD SPECIMEN Ordering Facility: [facility] Address: [address] [place] [address] Result Comment: [email or web address] (PGx) DPYD and UGT1A1 Genotyping Laboratory Accession Number: [id number] DPYD Genotype: *1/*1 DPYD Activity Score: 2 DPYD Predicted Phenotype: DPYD Normal Metabolizer UGT1A1 Genotype: *1/*80+*28 UGT1A1 Predicted Phenotype: UGT1A1 Intermediate Metabolizer Interpretation: Two "normal function" alleles were observed in the DPYD gene [...] molecular testing details should be directed to [facility] . One "decreased function" UGT1A1 allele, in combination with either one "normal function" or one "increased function" UGT1A1 allele, was observed in this sample [...] Variant Details: NA UGT1A1 Variant Details: UGT1A1 [id number], c.-346C>T, g.[id number]>T (legacy name 80); UGT1A1 [id number], c.-41_-40dupTA [id number] (legacy name 28) DPYD Additional Information: In addition to increased risk of 5-fluorouracil toxicity, variants in the DPYD gene may be associated with DPD deficiency, an autosomal recessive inborn error of metabolism (OMIM: 579528). DPD deficiency exhibits a wide range of [...] list below) in the DPYD gene (OMIM 838074) and UGT1A1 gene (OMIM 644664). This test does not detect all sequence [...] not included)... Performed By: #### D UPNL1 #### [facility] CLIA [id number] [address] [place] [address] [place] HBV core Ab Ser Qlon 025 HBV core Ab Ql (S) Negative Normal Negative [facility] Comment on above: Order Comment: Speci men Type: BLOOD SPECIMENOrdering Facility: [facility] Address: [address] [place] [address] Result Comment: No e vidence of current or past infection with Hepatitis B virus. Should recent infection be suspected, repeat testing may be considered 3-4 weeks after this draw. Performed By: #### 6 30-4, 92419-7 #### [facility] CLIA [id number] [address] [place] [address] HBV surface Ab Ql (S)on 08-09 HBV surface Ab Qn (S) <8.00 Normal [facility] Comment on above: Order Comment: Speci men Type: URINE SPECIMEN Ordering Facility: [facility] Address: [address] [place] [address] Result Comment: <8 m IU/mL: No serological evidence of immunity to Hepatitis B Virus. >/= 8 to <12 mIU/mL: No serological evidence of immunity to Hepatitis B Virus. >/= 12 mIU/mL: Consistent with serological evidence of immunity to Hepatitis B Virus. Performed By: #### 6 30-4, 28901-2 #### [facility] CLIA [id number] [address] [place] [address] [place] HBV surface Ab Ser Qlon 08-09 HBV surface Ab Ql (S) Negative Normal [facility] Comment on above: Order Comment: Speci men Type: URINE SPECIMEN Ordering Facility: [facility] Address: [address] [place] [address] Result Comment: No s erological evidence of immunity to Hepatitis B Virus. Performed By: #### 6 30-4, 31784-3 #### [facility] CLIA [id number] [address] [place] [address] [place] HBV surface Ag Ser Qlon 08-09 HBV surface Ag Ql (S) Negative Normal Negative [facility] Comment on above: Order Comment: Speci men Type: URINE SPECIMEN Ordering Facility: [facility] Address: [address] [place] [address] Performed By: #### 6 30-4, 92833-9 #### [facility] CLIA [id number] [address] [place] [address] [place] HCV Ab Ser Qlon 09-05-2024 HCV Ab Ql (S) Negative [facility] Comment on above: Order Comment: Speci men Type: BLOOD SPECIMENOrdering Facility: [facility] Address: [address] [place] [address] Result Comment: The result suggests no evidence of infection with Hepatitis C virus. Should recent infection be suspected, repeat testing may be considered 4-6 weeks after this draw. Performed By: #### 6 30-4, 75326-3 #### [facility] CLIA [id number] [address] [place] [address] [place] Cardiology Visit Reporton Cardiology Visit Report Normal [facility] BLADDER SCANon 08-29-2024 Bladder scan volume 32ml [facility] CNOVon 08-29-2024 CNOV Normal [facility] CNPNon 08-29-2024 CNPN Telephone (HEMCA3) ABELARDO IVORY ([id number]) 1950 M Date Time Provider Department 08/29/24 CODEY CHRISTIANSON During your visit today, we recorded the following information about you: Tabitha Hayes 08/29/2024 3:29 PM Signed Abelardo Ivory is calling Codey Christianson MD today regarding 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 [place] told him they need information from Dr. Christianson to make sure they have the treatment he needs/getting. Can someone call the patient back Patient has been identified by name and birthdate. Requesting response back: [phone] (home) [phone] (cell) Tabitha Hayes August 29, 2024 Karen Post, ANGELA 08/29/2024 4:50 PM Signed Returned call to Abelardo Ivory regarding establishing care at [facility]. Contacted [facility] and spoke with Saira in hem/onc and she was able to schedule Darrel for: 09/05/2024 @ 2PM with Dr. Lakeisha Dawkins. All questions addressed. 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 - pwgsxsetsni-hbjpfyvkn-m ilanter (TRELEGY ELLIPTA) 200-62.5-25 mcg inhalation powder [...] Status:Closed by KAREN POST on 08/29/24 [facility] UA DIP, URINE (POC)on 2024 BILIRUBIN UA (POCT) Negative Negative [facility] CLARITY UA (POCT) Clear [facility] COLOR UA (POCT) Yellow [facility] GLUCOSE UA (POCT) Negative Negative mg/dL [facility] Hemoglobin Ql (U) Large Abnormal Negative [facility] Interpretation and review of laboratory results Abnormal [facility] KETONE UA (POCT) Negative Negative mg/dL [facility] LEUKOCYTES UA (POCT) Moderate Abnormal Negative [facility] NITRITE UA (POCT) Negative Negative [facility] PH UA (POCT) 6 4.5 - 8.0 [facility] Protein Ql (U) 100 mg/dL Abnormal Negative [facility] SPECIFIC GRAVITY UA (POCT) 1.025 1.005 - 1.030 [facility] UROBILINOGEN UA (POCT) 0.2 Margaret l E.U./dL [facility] Location:[facility], [address], [place], [address] [facility] POINT OF CARE [facility] Ale 08-24-2024 CNPN Telephone (MIGUEL A CASTILLO) ABELARDO IVORY ([id number]) 1950 M Date Time Provider Department 08/24/24 FARHEEN VALENTINE During your visit today, we recorded the following information about you: Farheen Valentine, RN 08/24/2024 3:33 PM Signed CASE [id number]: Spoke with patient, states he saw urology this week and stent was placed. Patient states he has decided not to do the study and would like to follow in [place] for chemo if possible. Aware Dr Christianson will be notified. Allergies As of Date: 08/24/2024 (No Known Allergies) Date Reviewed: 08/21/2024 Reviewed by: Sonja Vargas, ANGELA - Fully Assessed Reason for Visit: CASE [id number] Update [Other] Prescriptions as of 08/24/2024 - amLODIPine (NORVASC) 5 mg tablet Take 5 mg by mouth once daily. - avzeohxibno-cllrobjrs-m ilanter (TRELEGY ELLIPTA) 200-62.5-25 mcg inhalation powder [...] Encounter Status:Closed by [facility]EN VAL[facility] Tele[facility] (MIGUEL AAristides CASTILLO) ABELARDO IVORY ([id number]) 1950 Date Time Provider Department 08/22/24 FARHEEN VALENTINE MIGUEL A JONATHAN During your visit today, we recorded the following information about you: Farheen Valentine RN 08/22/2024 12:24 PM Signed CASE [id number]: Left message on voiceThreatTrack Securityil for pt to return call Allergies As of Date: 08/22/2024 (No Known Allergies) Date Reviewed: 08/21/2024 Reviewed by: Sonja Vargas RN - Fully Assessed Reason for Visit: CASE [id number] Discussion [Other] Prescriptions as of 08/22/2024 - amLODIPine (NORVASC) 5 mg tablet Take 5 mg by mouth once daily. - kdfkogquefv-ptheccvto-w ilanter (TRELEGY ELLIPTA) 200-62.5-25 mcg inhalation powder [...] Status:Closed by FARHEEN VALENTINE on 08/22/24 [facility] ANES POSTPROC EVALon 025 ANES POSTPROC EVAL Normal [facility] ANES PRE-OPon 08-21-2024 ANES PRE-OP Normal [facility] CNPNon 08-21-2024 CNPN Normal [facility] OPERATIVE NOon 08-21-2024 OPERATIVE NO [facility] Bacteria Ur Culton 5 Bacteria identified Cx Nom (U) CULTURE, URINE: No growth (<1,000 CFU/ml) Normal [facility] Comment on above: Performed By: #### 6 30-4 ####[facility][1] LABORATORYCLIA [id number] [address] [facility] HISTORY PHYSICALon [address] [facility] CNPNon 08-03-2024 CNPN Telephone (MIGUEL A JONATHAN) ABELARDO IVORY ([id number]) 1950 [place] Date Time Provider Department 08/03/24 [...] hol. Patient will need repeat TURBT at [facility] due to previously being done at [facility]. Allergies As of Date: 08/03/2024 (No [...] Encounter Status:Closed by FARHEEN VALENTINE on 08/03/24 [facility] CNOVon 08-02-2024 CNOV Normal [facility] UA DIP, URINE (POC)on 2024 BILIRUBIN UA (POCT) Negative Negative [facility] CLARITY UA (POCT) Clear [facility] COLOR UA (POCT) Yellow [facility] GLUCOSE UA (POCT) Negative Negative mg/dL [facility] Hemoglobin Ql (U) Moderate Abnormal Negative [facility] Interpretation and review of laboratory results Abnormal [facility] KETONE UA (POCT) Negative Negative mg/dL [facility] LEUKOCYTES UA (POCT) Trace Abnormal Negative [facility] NITRITE UA (POCT) Negative Negative [facility] PH UA (POCT) 5.5 4.5 - 8.0 [facility] Protein Ql (U) 100 mg/dL Abnormal Negative [facility] SPECIFIC GRAVITY UA (POCT) 1.02 1.005 - 1.030 [facility] UROBILINOGEN UA (POCT) 0.2 Margaret l E.U./dL [facility] Location:[facility] Urology Dept, [address] [place] [address], [address] [place] [address] POINT OF CARE [facility] CT ABD/PEL W IVCONon 025 CT ABD/PEL W IVCON * * *Final Report* * * DATE OF EXAM: Jul 31 2024 2:11PM [facility] 0530 - CT ABD/PEL W IVCON [...] compatible with urothelial cancer. No abdominopelvic metastasis. Junior Engineer: [facility] Transcribe Date/Time: Jul 31 2024 3:04P Dictated by : CARLINE CHAPMAN MD This examination was interpreted and the report reviewed and electronically signed by: PADMINI BRUSH MD on Jul 31 2024 8:26PM EST [id number] [facility] CT Abdomen and Pelvis W cont rast Darci 07-31-2024 IMPRESSION: Wall thickening along bladder trigone compatible with urothelial cancer. No abdominopelvic metastasis. Junior Engineer: [facility] Transcribe Date/Time: Jul 31 2024 3:04P Dictated by : CARLINE CHAPMAN MD This examination was interpreted and the report reviewed and electronically signed by: PADMINI BRUSH MD on Jul 31 2024 8:26PM EST DIVISION OF RADIOLOGY * * *Final Report* * * DATE OF EXAM: Jul 31 2024 2:11PM [facility] 0530 - CT ABD/PEL W IVCON [...] No additional findings. DIVISION OF RADIOLOGY Provider, [facility] - 07/31/2024 * * *Final Report* * * DATE OF EXAM: Jul 31 2024 2:11PM [facility] 0530 - CT ABD/PEL W IVCON [...] compatible with urothelial cancer. No abdominopelvic metastasis. Junior Engineer: [facility] Transcribe Date/Time: Jul 31 2024 3:04P Dictated by : CARLINE CHAPMAN MD This examination was interpreted and the report reviewed and electronically signed by: PADMINI BRUSH MD on Jul 31 2024 8:26PM EST [facility] Radiology Study observation (narrative) [facility] CT Abdomen and Pelvis W cont rast IVOrdered By: Ccf Provider on 07-31-2024 [facility] CT CHEST W IVCONon CT CHEST W IVCON * * *Final Report* * * DATE OF EXAM: Jul 31 2024 2:11PM [facility] 0539 - CT CHEST W IVCON [...] to a granulomatous process such as histoplasmosis. Junior Engineer: JESUS ALBERTO Transcribe Date/Time: Jul 31 2024 2:19P Dictated by : JOHAN CARTER MD This examination was interpreted and the report reviewed and electronically signed by: JOHAN CARTER MD on Jul 31 2024 2:29PM EST [id number] [facility] CT Chest W contrast Darci IMPRESSION: 1. Stable nodules in left lung measuring up to 5 mm, these are indeterminate, recommend continued attention on follow-up. No new lung nodules or consolidations have developed. 2. Stable borderline enlarged lymph nodes in the mediastinum, probably reactive or related to a granulomatous process such as histoplasmosis. Junior Engineer: JESUS ALBERTO Transcribe Date/Time: Jul 31 2024 2:19P Dictated by : JOHAN CARTER MD This examination was interpreted and the report reviewed and electronically signed by: JOHAN CARTER MD on Jul 31 2024 2:29PM EST DIVISION OF RADIOLOGY * * *Final Report* * * DATE OF EXAM: Jul 31 2024 2:11PM [facility] 0539 - CT CHEST W IVCON [...] No additional findings. DIVISION OF RADIOLOGY Provider, [facility] - 07/31/2024 * * *Final Report* * * DATE OF EXAM: Jul 31 2024 2:11PM [facility] 0539 - CT CHEST W IVCON [...] to a granulomatous process such as histoplasmosis. Junior Engineer: PSCLynda Transcribe Date/Time: Jul 31 2024 2:19P Dictated by : JOHAN CARTER MD This examination was interpreted and the report reviewed and electronically signed by: JOHAN CARTER MD on Jul 31 2024 2:29PM EST [facility] Radiology Study observation (narrative) [facility] OUTSIDE SURG PATH SLIDE REVI EWon 07-31-2024 AP DISCLAIMER [facility] Comment on above: Order Comment: Speci men Type: FORMALIN-FIXED PARAFFIN-EMBEDDED TISSUE SPECIMENOrdering Facility: AP Outside Review Address: , , Result Comment: Panchito downey Developed Test (LDT) Disclaimer: Performance characteristics of immunohistochemical, immunofluorescent, and chromogenic in-situ hybridization tests have been determined by the performing laboratory within [facility]'s Abelardo Encarnacion Pathology and Laboratory Medicine Department ([facility], [facility], [facility], [facility], [facility], [facility], or [facility]) in a manner consistent with CLIA requirements. One or more of these tests may not have been cleared or approved by the FDA. [facility] is regulated under CLIA as qualified to perform high-complexity testing. These tests are used for clinical purposes. These should not be regarded as investigational or for research. Positive and negative controls stain appropriately. Performed By: #### L [id number] ####[facility] [id number] [place] [id number] [place] CASE REPORT [facility] Comment on above: Order Comment: Speci men Type: FORMALIN-FIXED PARAFFIN-EMBEDDED TISSUE SPECIMENOrdering Facility: AP Outside Review Address: , , Result Comment: [facility] Pathology Report Case: [id number] Authorizing Provider: Codey Christianson MD Collected: 07/31/2024 09:18 AM Ordering Location: [facility] Main Received: 07/31/2024 09:16 AM [facility] Laboratory Pathologist: Mj Beltran MD Specimen: Slide(s), 4 SLIDES [id number] Performed By: #### L [id number] ####[facility] [id number] [place] [id number] [place] FINAL DIAGNOSIS [facility] Comment on above: Order Comment: Speci men Type: FORMALIN-FIXED PARAFFIN-EMBEDDED TISSUE SPECIMENOrdering Facility: AP Outside Review Address: , , Result Comment: [facility]; [place], [place] ([id number]) A. Urinary bladder, transurethral resection: - Invasive urothelial carcinoma, high-grade, involving muscularis propria. JKM 07/31/2024 at 1058 EDT Performed By: #### L [id number] ####[facility] [id number] [address] [place] FINAL PERFORMING LAB Normal [facility] Comment on above: Order Comment: Speci men Type: FORMALIN-FIXED PARAFFIN-EMBEDDED TISSUE SPECIMENOrdering Facility: Outside Review Address: , , Result Comment: Diag nostic interpretation performed at: [facility], [address] [facility] [place] [place] [address] CLIA# [id number] Development Team Lead: Antoine Tony MD Performed By: #### L [id number] ####[facility]IA [id number] [place] [address] [place] CBC W Auto Differential pane l (Bld)on 07-26-2024 Basophils (Bld) [#/Vol] 0.05 10*3/uL [facility] Basophils/100 WBC (Bld) 0.7 % [facility] Differential cell count method Nom (Bld) Auto [facility] Eosinophils (Bld) [#/Vol] 0.24 10*3/uL [facility] Eosinophils/100 WBC (Bld) 3.3 % [facility] Erythrocyte distribution width (RBC) [Ratio] 13.8 % 11.5 - 15.0 % [facility] Hematocrit (Bld) [Volume fraction] 38.1 % Low 39.0 - 51.0 % [facility] Hemoglobin (Bld) [Mass/Vol] 12.2 g/dL Low 13.0 - 17.0 g/dL [facility] Immature granulocytes (Bld) [#/Vol] [facility] Immature granulocytes/100 WBC (Bld) 0.1 % [facility] Interpretation and review of laboratory results Abnormal [facility] Lymphocytes (Bld) [#/Vol] 3.39 10*3/uL [facility] Lymphocytes/100 WBC (Bld) 46.3 % [facility] MCH (RBC) [Entitic mass] 29.8 pg 26.0 - 34.0 pg [facility] MCHC (RBC) [Mass/Vol] 32 g/dL 30.5 - 36.0 g/dL [facility] MCV (RBC) [Entitic vol] 92.9 fL 80.0 - 100.0 fL [facility] Monocytes (Bld) [#/Vol] 0.64 10*3/uL NINF [facility] Monocytes/100 WBC (Bld) 8.7 % [facility] Neutrophils (Bld) [#/Vol] 2.99 10*3/uL [facility] Neutrophils/100 WBC (Bld) 40.9 % [facility] Nucleated RBC (Bld) [#/Vol] NINF [facility] Nucleated RBC/100 WBC (Bld) [Ratio] 0 % /100 WBC [facility] Platelet mean volume (Bld) [Entitic vol] 8.8 fL Low 9.0 - 12.7 fL [facility] Platelets (Bld) [#/Vol] 156 10*3/uL [facility] RBC (Bld) [#/Vol] 4.1 10*6/uL Low 4.20 - 6.0 0 m/uL [facility] WBC (Bld) [#/Vol] 7.32 10*3/uL [facility] Basophils (Bld) [#/Vol] 0.05 10*3/uL Normal <0.11 [facility] Comment on above: Order Comment: Speci men Type: BLOOD SPECIMENOrdering Facility: [facility] Address: [address] [place] [address] Performed By: #### 5 7021-8 ####[facility] [id number] [place] [address] [place] Basophils/100 WBC (Bld) 0.7 % [facility] Comment on above: Order Comment: Speci men Type: BLOOD SPECIMENOrdering Facility: [facility] Address: [address] [place] [address] Performed By: #### 5 7021-8 ####[facility] [id number] [place] [address] [place] Differential cell count method Nom (Bld) Auto [facility] Comment on above: Order Comment: Speci men Type: BLOOD SPECIMENOrdering Facility: [facility] Address: [address] [place] [address] Performed By: #### 5 7021-8 ####[facility] [id number] [place] [address] [place] Eosinophils (Bld) [#/Vol] 0.24 10*3/uL Normal <0.46 [facility] Comment on above: Order Comment: Speci men Type: BLOOD SPECIMENOrdering Facility: [facility] Address: [address] [place] [address] Performed By: #### 5 7021-8 ####[facility] [id number] [place] [address] [place] Eosinophils/100 WBC (Bld) 3.3 % [facility] Comment on above: Order Comment: Speci men Type: BLOOD SPECIMENOrdering Facility: [facility] Address: [address] [place] [address] Performed By: #### 5 7021-8 ####[facility] [id number] [place] [address] [place] Erythrocyte distribution width (RBC) [Ratio] 13.8 % Normal 11.5-15.0 [facility] Comment on above: Order Comment: Speci men Type: BLOOD SPECIMENOrdering Facility: [facility] Address: [address] [place] [address] Performed By: #### 5 7021-8 ####[facility] [id number] [place] [address] [place] Hematocrit (Bld) [Volume fraction] 38.1 % Low 39.0-51.0 [facility] Comment on above: Order Comment: Speci men Type: BLOOD SPECIMENOrdering Facility: [facility] Address: [address] [place] [address] Performed By: #### 5 7021-8 ####[facility] [id number] [place] [address] [place] Hemoglobin (Bld) [Mass/Vol] 12.2 g/dL Low 13.0-17.0 [facility] Comment on above: Order Comment: Speci men Type: BLOOD SPECIMENOrdering Facility: [facility] Address: [address] [place] [address] Performed By: #### 5 7021-8 ####[facility] [id number] [place] [address] [place] Immature granulocytes (Bld) [#/Vol] 10*3/uL Normal <0.10 [facility] Comment on above: Order Comment: Speci men Type: BLOOD SPECIMENOrdering Facility: [facility] Address: [address] [place] [address] Performed By: #### 5 7021-8 ####[facility] [id number] [place] [address] [place] Immature granulocytes/100 WBC (Bld) 0.1 % [facility] Comment on above: Order Comment: Speci men Type: BLOOD SPECIMENOrdering Facility: [facility] Address: [address] [place] [address] Performed By: #### 5 7021-8 ####[facility] [id number] [place] [address] [place] Lymphocytes (Bld) [#/Vol] 3.39 10*3/uL Normal 1.00-4.00 [facility] Comment on above: Order Comment: Speci men Type: BLOOD SPECIMENOrdering Facility: [facility] Address: [address] [place] [address] Performed By: #### 5 7021-8 ####[facility] [id number] [place] [address] [place] Lymphocytes/100 WBC (Bld) 46.3 % [facility] Comment on above: Order Comment: Speci men Type: BLOOD SPECIMENOrdering Facility: [facility] Address: [address] [place], [place] [id number] Performed By: #### 5 7021-8 ####[facility] [id number] [address] [place] [facility] MCH (RBC) [Entitic mass] 29.8 pg Normal 26.0-34.0 [facility] Comment on above: Order Comment: Speci men Type: BLOOD SPECIMENOrdering Facility: [facility] Address: [address] [place] [address] Performed By: #### 5 7021-8 ####[facility] [id number] [place] [address] [place] MCHC (RBC) [Mass/Vol] 32.0 g/dL Normal 30.5-36.0 [facility] Comment on above: Order Comment: Speci men Type: BLOOD SPECIMENOrdering Facility: [facility] Address: [address] [place] [address] Performed By: #### 5 7021-8 ####[facility] [id number] [place] [address] [place] MCV (RBC) [Entitic vol] 92.9 fL Normal 80.0-100.0 [facility] Comment on above: Order Comment: Speci men Type: BLOOD SPECIMENOrdering Facility: [facility] Address: [address] [place] [address] Performed By: #### 5 7021-8 ####[facility] [id number] [place] [address] [place] Monocytes (Bld) [#/Vol] 0.64 10*3/uL Normal <0.87 [facility] Comment on above: Order Comment: Speci men Type: BLOOD SPECIMENOrdering Facility: [facility] Address: [address] [place] [address] Performed By: #### 5 7021-8 ####[facility] [id number] [place] [address] [place] Monocytes/100 WBC (Bld) 8.7 % [facility] Comment on above: Order Comment: Speci men Type: BLOOD SPECIMENOrdering Facility: [facility] Address: [address] [place] [address] Performed By: #### 5 7021-8 ####[facility] [id number] [place] [address] [place] Neutrophils (Bld) [#/Vol] 2.99 10*3/uL Normal 1.45-7.50 [facility] Comment on above: Order Comment: Speci men Type: BLOOD SPECIMENOrdering Facility: [facility] Address: [address] [place] [address] Performed By: #### 5 7021-8 ####[facility] [id number] [place] [id number] [place] Neutrophils/100 WBC (Bld) 40.9 % [facility] Comment on above: Order Comment: Speci men Type: BLOOD SPECIMENOrdering Facility: [facility] Address: [address] [place] [address] Performed By: #### 5 7021-8 ####[facility] [id number] [place] [address] [place] Nucleated RBC (Bld) [#/Vol] 10*3/uL Normal <0.01 [facility] Comment on above: Order Comment: Speci men Type: BLOOD SPECIMENOrdering Facility: [facility] Address: [address] [place] [address] Performed By: #### 5 7021-8 ####[facility] [id number] [place] [address] [place] Nucleated RBC/100 WBC (Bld) [Ratio] 0.0 /100 WBC [facility] Comment on above: Order Comment: Speci men Type: BLOOD SPECIMENOrdering Facility: [facility] Address: [address] [place] [address] Performed By: #### 5 7021-8 ####[facility] [id number] [place] [address] [place] Platelet mean volume (Bld) [Entitic vol] 8.8 fL Low 9.0-12.7 [facility] Comment on above: Order Comment: Speci men Type: BLOOD SPECIMENOrdering Facility: [facility] Address: [address] [place] [address] Performed By: #### 5 7021-8 ####[facility] [id number] [place] [address] [place] Platelets (Bld) [#/Vol] 156 10*3/uL Normal 150-400 [facility] Comment on above: Order Comment: Speci men Type: BLOOD SPECIMENOrdering Facility: [facility] Address: [address] [place] [address] Performed By: #### 5 7021-8 ####[facility] [id number] [place] [address] [place] RBC (Bld) [#/Vol] 4.10 10*6/uL Low 4.20-6.00 [facility] Comment on above: Order Comment: Speci men Type: BLOOD SPECIMENOrdering Facility: [facility] Address: [address] [place] [address] Performed By: #### 5 7021-8 ####[facility] [id number] [place] [address] [place] WBC (Bld) [#/Vol] 7.32 10*3/uL Normal 3.70-11.00 [facility] Comment on above: Order Comment: Speci men Type: BLOOD SPECIMENOrdering Facility: [facility] Address: [address] [place] [address] Performed By: #### 5 7021-8 ####[facility] [id number] [place] [id number] [place] [facility] CNOVSPon 07-26-2024 CNOVSP Visit (SP) Office ([id number]) ABELARDO IVORY ([id number]) 1950 M Date Time Provider Department 07/26/24 [...] No Does patient want to see a Diesel Locomotive Firer? No (yes to any of above refer patient to schedulers for dietitian appointment) ) Does patient have any new or increased numbness or tingling of extremities? No Is patient interested in fertility information? No Does patient need any prescription refills? No Does patient have an advanced directive in place? Yes, copies are in Sykio Electronically Signed By: SUDHA Davis Lisa, LPN 08/07/2024 2:06 PM Signed Additional intake questions: Has the patient had fever, nausea, vomiting, diarrhea, constipation, fatigue for > 1 week? No Does the patient have a decreased appetite? No Does patient want to see a Diesel Locomotive Firer? No (yes to any of above refer patient to schedulers for dietitian appointment) ) Does patient have any new or increased numbness or tingling of extremities? No Is patient interested in fertility information? No Does patient need any prescription refills? No Does patient have an advanced directive in place? Yes, copies are in Syk[employer] Electronically Signed By: SUDHA Davis Shilpa, MD 08/07/2024 2:06 PM Signed [facility] ONCOLOGY INITIAL CONSULT NOTE Date of [...] 0 a (more content not included)... [facility] Comprehensive metabolic 2000 panelon 07-26-2024 Albumin [Mass/Vol] 4.2 g/dL 3.9 - 4.9 g/dL [facility] ALP [Catalytic activity/Vol] 76 U/L 38 - 113 U/L [facility] ALT [Catalytic activity/Vol] 12 U/L 10 - 54 U/L [facility] Anion gap [Moles/Vol] 13 mmol/L 8 - 15 mmol/L [facility] AST [Catalytic activity/Vol] 19 U/L 14 - 40 U/L [facility] Bilirubin [Mass/Vol] 0.3 mg/dL 0.2 - 1 .3 mg/dL [facility] Calcium [Mass/Vol] 9.3 mg/dL 8.5 - 10. 2 mg/dL [facility] Chloride [Moles/Vol] 103 mmol/L 98 - 10 7 mmol/L [facility] CO2 [Moles/Vol] 23 mmol/L 22 - 30 mmol/L [facility] Creatinine [Mass/Vol] 1.54 mg/dL High 0.73 - 1.22 mg/dL [facility] GFR/1.73 sq M.predicted among non-blacks MDRD (S/P/Bld) [Vol rate/Area] 47 mL/min/{1.73_m2} Low - PINF [facility] Comment on above: Estimated Glomerular Filtration Rate [...] High 74 - 99 mg/dL [facility] Comment on above: The [place] Diabete s Association (ADA) provides guidance for [...] Standards of Medical Care in Diabetes 2016, [place] Diabetes Association. Diabetes Care. 2016.39(Suppl 1). Interpretation and review of laboratory results Abnormal [facility] Potassium [Moles/Vol] 4.9 mmol/L 3.7 - 5.1 mmol/L [facility] Protein [Mass/Vol] 7.1 g/dL 6.3 - 8.0 g/dL [facility] Sodium [Moles/Vol] 139 mmol/L 136 - 144 mmol/L [facility] Urea nitrogen [Mass/Vol] 34 mg/dL High 9 - 24 mg/dL [facility] Albumin [Mass/Vol] 4.2 g/dL Normal 3.9-4.9 [facility] Comment on above: Order Comment: Speci men Type: URINE SPECIMEN [facility] Address: [address] [place] [address] Performed By: #### 6 30-4, 59928-6 #### [facility] CLIA [id number] [address] [place] [address] [place] ALP [Catalytic activity/Vol] 76 U/L Normal 38-113 [facility] Comment on above: Order Comment: Speci men Type: URINE SPECIMEN [facility] Address: [address] [place] [address] Performed By: #### 6 30-4, 75985-1 #### [facility] CLIA [id number] [address] [place] [address] [place] ALT [Catalytic activity/Vol] 12 U/L Normal 10-54 [facility] Comment on above: Order Comment: Speci men Type: URINE SPECIMEN [facility] Address: [address] [place] [address] Performed By: #### 6 30-4, 50720-1 #### [facility] CLIA [id number] [address] [place] [address] [place] Anion gap [Moles/Vol] 13 mmol/L Normal 8-15 [facility] Comment on above: Order Comment: Speci men Type: URINE SPECIMEN [facility] Address: [address] [place] [address] Performed By: #### 6 30-4, 74362-3 #### [facility] CLIA [id number] [address] [place] [address] [place] AST [Catalytic activity/Vol] 19 U/L Normal 14-40 [facility] Comment on above: Order Comment: Speci men Type: URINE SPECIMEN [facility] Address: [address] [place] [address] Performed By: #### 6 30-4, 31672-1 #### [facility] CLIA [id number] [address] [place] [address] [place] Bilirubin [Mass/Vol] 0.3 mg/dL Normal 0.2-1.[address] [facility] Comment on above: Order Comment: Speci men Type: URINE SPECIMEN [facility] Address: [address] [place] [address] Performed By: #### 6 30-4, 89906-9 #### [facility] CLIA [id number] [address] [place], [place] [address] [place] Calcium [Mass/Vol] 9.3 mg/dL Normal 8.5-10.2 [facility] Comment on above: Order Comment: Speci men Type: URINE SPECIMEN [facility] Address: [address] [place] [address] Performed By: #### 6 30-4, 53460-7 #### [facility] CLIA [id number] [address] [place], [place] [address] [place] Chloride [Moles/Vol] 103 mmol/L Normal 98-[address] [facility] Comment on above: Order Comment: Speci men Type: URINE SPECIMEN [facility] Address: [address] [place] [address] Performed By: #### 6 30-4, 17291-8 #### [facility] CLIA [id number] [address] [place], [place] [address] [place] CO2 [Moles/Vol] 23 mmol/L Normal 22-30 [facility] Comment on above: Order Comment: Speci men Type: URINE SPECIMEN [facility] Address: [address] [place] [address] Performed By: #### 6 30-4, 73291-0 #### [facility] CLIA [id number] [address] [place], [place] [address] [place] Creatinine [Mass/Vol] 1.54 mg/dL High 0.73-1.22 [facility] Comment on above: Order Comment: Speci men Type: URINE SPECIMEN [facility] Address: [address] [place] [address] Performed By: #### 6 30-4, 07530-4 #### [facility] CLIA [id number] [address] [place], [place] [address] [place] Creatinine and Glomerular filtration rate.predicted panel (S/P/Bld) 47 mL/min/1.73m??? Low >=60 [facility] Comment on above: Order Comment: Raul hutson Type: URINE SPECIMEN [facility] Address: [address] [place] [address] Result Comment: May mated Glomerular Filtration Rate (eGFR) is calculated using the 2020 CKD-EPI creatinine equation. This equation utilizes serum creatinine, sex, and age as parameters. The creatinine assay has traceable calibration to isotope dilution-mass spectrometry. Refer to KDIGO guidelines for clinical interpretation. In patients with unstable renal function, e.g. those with acute kidney injury, the eGFR may not accurately reflect actual GFR. Performed By: #### 6 30-4, 54245-6 #### [facility] CLIA [id number] [address] [place] [address] [place] Glucose [Mass/Vol] 106 mg/dL High 74-99 [facility] Comment on above: Order Comment: Raul hutson Type: URINE SPECIMEN [facility] Address: [address] [place] [address] Result Comment: The [place] Diabetes Association (ADA) provides guidance for cutoff [...] Standards of Medical Care in Diabetes 2016, [place] Diabetes Association. Diabetes Care. 2016.39(Suppl 1). Performed By: #### 6 30-4, 16191-9 #### [facility] CLIA [id number] [address] [place], [place] [address] [place] Potassium [Moles/Vol] 4.9 mmol/L Normal 3.7-5.1 [facility] Comment on above: Order Comment: Speci men Type: URINE SPECIMEN [facility] Address: [address] [id number] Performed By: #### 6 30-4, 28278-0 #### [facility] CLIA [id number] [address] [place], [place] [address] [place] Protein [Mass/Vol] 7.1 g/dL Normal 6.3-8.0 [facility] Comment on above: Order Comment: Speci men Type: URINE SPECIMEN [facility] Address: [address] [place] [address] Performed By: #### 6 30-4, 01296-3 #### [facility] CLIA [id number] [address] [place] [address] [place] Sodium [Moles/Vol] 139 mmol/L Normal 136-144 [facility] Comment on above: Order Comment: Speci men Type: URINE SPECIMEN [facility] Address: [address] [place] [address] Performed By: #### 6 30-4, 56576-7 #### [facility] CLIA [id number] [address] [place] [address] [place] Urea nitrogen [Mass/Vol] 34 mg/dL High 9-24 [facility] Comment on above: Order Comment: Speci men Type: URINE SPECIMEN [facility] Address: [address] [place] [address] Performed By: #### 6 30-4, 56378-2 #### [facility] CLIA [id number] [address] [place], [place] [address] [place] Anion gap in Serum or Plasma Ordered By: Padmini Carrasco on 07-09-2024 Anion gap [Moles/Vol] 10 mmol/L 5-15 [facility] BUN/creatinine ratioOrdered By: Padmini Carrasco on 07-09-2024 Urea nitrogen/Creatinine [Mass ratio] 22.0 mg/mg High 10-20 [facility] Basic Metabolic Profile (BMP )on 07-09-2024 BUN/CRE 22.0 RATIO High - [facility] Comment on above: Order Comment: PER P T-JUST RANNEY ORDER Performed By: #### L 500.2500 ####[facility] [address] [place], [address] Calcium [Mass/Vol] 9.2 mg/dL Normal 7.6-11.0 [facility] Comment on above: Order Comment: PER P T-JUST RANNEY ORDER Performed By: #### L 500.2500 ####[facility] [address] [place], [address] Chloride [Moles/Vol] 105 mmol/L Normal 98-108 [facility] Comment on above: Order Comment: PER P T-JUST RANNEY ORDER Performed By: #### L 500.2500 ####[facility] [address] [place], [address] CO2 [Moles/Vol] 26.1 mmol/L Normal 21.0-32.0 [facility] Comment on above: Order Comment: PER P T-JUST RANNEY ORDER Performed By: #### L 500.2500 ####[facility] [address] [place], [address] Creatinine [Mass/Vol] 1.74 mg/dL High 0.70-1.20 [facility] Comment on above: Order Comment: PER P T-JUST RANNEY ORDER Performed By: #### L 500.2500 ####[facility] [address] [place], [address] GAP 10 Normal 5-15 [facility] Comment on above: Order Comment: PER P T-JUST RANNEY ORDER Performed By: #### L 500.2500 ####[facility] [address] [place], [address] GFR/1.73 sq M.predicted among non-blacks MDRD (S/P/Bld) [Vol rate/Area] 41 mL/min/{1.73_m2} Low >60 [facility] Comment on above: Order Comment: PER P T-JUST RANNEY ORDER Result Comment: mL/m in/1.73m2 CKD-EPI Creatinine Equation (2020) Performed By: #### L 500.2500 ####[facility] [address] [place], [address] Glucose [Mass/Vol] 108 mg/dL High 70-99 [facility] Comment on above: Order Comment: PER P T-JUST RANNEY ORDER Performed By: #### L 500.2500 ####[facility] [address] [place], [address] Potassium [Moles/Vol] 4.8 mmol/L Normal 3.3-5.1 [facility] Comment on above: Order Comment: PER P T-JUST RANNEY ORDER Performed By: #### L 500.2500 ####[facility] [address] [place], [address] Sodium [Moles/Vol] 141 mmol/L Normal 133-145 [facility] Comment on above: Order Comment: PER P T-JUST RANNEY ORDER Performed By: #### L 500.2500 ####[facility] [address] [place], [address] Urea nitrogen [Mass/Vol] 38 mg/dL High 4-19 [facility] Comment on above: Order Comment: PER P T-JUST RANNEY ORDER Performed By: #### L 500.2500 ####[facility] [address] [place], [address] Carbon dioxide, total [Moles /volume] in Central venous bloodOrdered By: Padmini Carrasco on 07-09-2024 CO2 [Moles/Vol] 26.1 mmol/L 21.0-32.0 [facility] Chloride assayOrdered By: Rambo Carrasco on 07-09-2024 Chloride [Moles/Vol] 105 mmol/L 98-108 [facility] Glomerular filtration rate ( GFR) estimation/1.73 sq m using serum, plasma, or whole bOrdered By: Padmini Carrasco on 07-09-2024 GFR/1.73 sq M.predicted among non-blacks MDRD (S/P/Bld) [Vol rate/Area] 41 mL/min/{1.73_m2} Low >60 [facility] Comment on above: mL/min/1.73m2 CKD-EP I Creatinine Equation (2020) Potassium measurement (mass/ volume)Ordered By: Padmini Carrasco on 07-09-2024 Potassium (Unsp spec) [Mass/Vol] 4.8 mmol/L 3.3-5.1 [facility] Serum creatinine measurement (mass/volume)Ordered By: Padmini Carrasco on 07-09-2024 Creatinine [Mass/Vol] 1.74 mg/dL High 0.70-1.20 [facility] Serum glucose measurement (m ass/volume)Ordered By: Padmini Carrasco on 07-09-2024 Glucose [Mass/Vol] 108 mg/dL High 70-99 [facility] Serum or plasma calcium jamel urement (mass/volume)Ordered By: Padmini Carrasco on 07-09-2024 Calcium [Mass/Vol] 9.2 mg/dL 7.6-11.0 [facility] Serum or plasma urea nitroge n measurement (mass/volume)Ordered By: Padmini Carrasco on 07-09-2024 Urea nitrogen [Mass/Vol] 38 mg/dL High 05-26 [facility] Sodium levelOrdered By: Jaz Carrasco on 07-09-2024 Sodium [Moles/Vol] 141 mmol/L 133-145 [facility] Basic Metabolic Profile (BMP )on 06-30-2024 BUN Normal 05-26 [facility] Comment on above: Result Comment: Canc elled via OM: Order cancelled - Patient discharged Performed By: #### L 100.0100, L500.2500 ####[facility] [address] [place], [address] BUN/CRE Normal 10-20 [facility] Comment on above: Result Comment: Canc elled via OM: Order cancelled - Patient discharged Performed By: #### L 100.0100, L500.2500 ####[facility] [address] [place], [address] Calcium Normal 7.6-11.0 [facility] Comment on above: Result Comment: Canc elled via OM: Order cancelled - Patient discharged Performed By: #### L 100.0100, L500.2500 ####[facility] [address] [place], [address] CL Normal 98-108 [facility] Comment on above: Result Comment: Canc elled via OM: Order cancelled - Patient discharged Performed By: #### L 100.0100, L500.2500 ####[facility] [address] [place], [address] CO2 Normal 21.0-32.0 [facility] Comment on above: Result Comment: Canc elled via OM: Order cancelled - Patient discharged Performed By: #### L 100.0100, L500.2500 ####[facility] [address] [place], [address] CREAT,SERUM Normal 0.70-1.20 [facility] Comment on above: Result Comment: Canc elled via OM: Order cancelled - Patient discharged Performed By: #### L 100.0100, L500.2500 ####[facility] [address] [place], [address] eGFR Normal >60 [facility] Comment on above: Result Comment: Canc elled via OM: Order cancelled - Patient discharged Performed By: #### L 100.0100, L500.2500 ####[facility] [address] [place], [address] GAP Normal 5-15 [facility] Comment on above: Result Comment: Canc elled via OM: Order cancelled - Patient discharged Performed By: #### L 100.0100, L500.2500 ####[facility] [address] [place], [address] GLU Normal 70-99 [facility] Comment on above: Result Comment: Canc elled via OM: Order cancelled - Patient discharged Performed By: #### L 100.0100, L500.2500 ####[facility] [address] [place], [address] Potassium Normal 3.3-5.1 [facility] Comment on above: Result Comment: Canc elled via OM: Order cancelled - Patient discharged Performed By: #### L 100.0100, L500.2500 ####[facility] [address] [place], [address] Basic Metabolic Profile (BMP) Normal 133-145 [facility] Comment on above: Result Comment: Canc elled via OM: Order cancelled - Patient discharged Performed By: #### L 100.0100, L500.2500 ####[facility] [address] [place], [address] CBC W/Diff, Automatedon 05-2 Absolute Neut Normal 2.0-7.7 [facility] Comment on above: Result Comment: Canc elled via OM: Order cancelled - Patient discharged Performed By: #### L 100.0100, L500.2500 ####[facility] [address] [place], [address] HCT Normal 40-54 [facility] Comment on above: Result Comment: Canc elled via OM: Order cancelled - Patient discharged Performed By: #### L 100.0100, L500.2500 ####[facility] [address] [place], [address] HGB Normal 13.0-16.5 [facility] Comment on above: Result Comment: Canc elled via OM: Order cancelled - Patient discharged Performed By: #### L 100.0100, L500.2500 ####[facility] [address] [place], [address] MCH Normal 27.0-32.0 [facility] Comment on above: Result Comment: Canc elled via OM: Order cancelled - Patient discharged Performed By: #### L 100.0100, L500.2500 ####[facility] [address] [place], [address] MCHC Normal 32-36 [facility] Comment on above: Result Comment: Canc elled via OM: Order cancelled - Patient discharged Performed By: #### L 100.0100, L500.2500 ####[facility] [address] [place], [address] MCV Normal 80-94 [facility] Comment on above: Result Comment: Canc elled via OM: Order cancelled - Patient discharged Performed By: #### L 100.0100, L500.2500 ####[facility] [address] [place], [address] NEUT% Normal 47-70 [facility] Comment on above: Result Comment: Canc elled via OM: Order cancelled - Patient discharged Performed By: #### L 100.0100, L500.2500 ####[facility] [address] [place], [address] PLT Normal 150-450 [facility] Comment on above: Result Comment: Canc elled via OM: Order cancelled - Patient discharged Performed By: #### L 100.0100, L500.2500 ####[facility] [address] [place], [address] RBC Normal 4.6-6.2 [facility] Comment on above: Result Comment: Canc elled via OM: Order cancelled - Patient discharged Performed By: #### L 100.0100, L500.2500 ####[facility] [address] [place], [address] RDW CV Normal 11.6-14.6 [facility] Comment on above: Result Comment: Canc elled via OM: Order cancelled - Patient discharged Performed By: #### L 100.0100, L500.2500 ####[facility] [address] [place], [address] RDW SD Normal 35.1-43.9 [facility] Comment on above: Result Comment: Canc elled via OM: Order cancelled - Patient discharged Performed By: #### L 100.0100, L500.2500 ####[facility] [address] [place], [address] WBC Normal 4.4-11.0 [facility] Comment on above: Result Comment: Canc elled via OM: Order cancelled - Patient discharged Performed By: #### L 100.0100, L500.2500 ####[facility] [address] [place], [address] Basic Metabolic Profile (BMP )on 06-29-2024 BUN Normal -19 [facility] Comment on above: Result Comment: Canc elled via OM: Order cancelled - Patient discharged Performed By: #### L 100.0100, L500.2500 ####[facility] [address] [place], [address] BUN/CRE Normal 10-20 [facility] Comment on above: Result Comment: Canc elled via OM: Order cancelled - Patient discharged Performed By: #### L 100.0100, L500.2500 ####[facility] [address] [place], [address] Calcium Normal 7.6-11.0 [facility] Comment on above: Result Comment: Canc elled via OM: Order cancelled - Patient discharged Performed By: #### L 100.0100, L500.2500 ####[facility] [address] [place], [address] CL Normal 98-108 [facility] Comment on above: Result Comment: Canc elled via OM: Order cancelled - Patient discharged Performed By: #### L 100.0100, L500.2500 ####[facility] [address] [place], [address] CO2 Normal 21.0-32.0 [facility] Comment on above: Result Comment: Canc elled via OM: Order cancelled - Patient discharged Performed By: #### L 100.0100, L500.2500 ####[facility] [address] [place], [address] CREAT,SERUM Normal 0.70-1.20 [facility] Comment on above: Result Comment: Canc elled via OM: Order cancelled - Patient discharged Performed By: #### L 100.0100, L500.2500 ####[facility] [address] [place], [address] eGFR Normal >60 [facility] Comment on above: Result Comment: Canc elled via OM: Order cancelled - Patient discharged Performed By: #### L 100.0100, L500.2500 ####[facility] [address] [place], [address] GAP Normal 5-15 [facility] Comment on above: Result Comment: Canc elled via OM: Order cancelled - Patient discharged Performed By: #### L 100.0100, L500.2500 ####[facility] [address] [place], [address] GLU Normal 70-99 [facility] Comment on above: Result Comment: Canc elled via OM: Order cancelled - Patient discharged Performed By: #### L 100.0100, L500.2500 ####[facility] [address] [place], [address] Potassium Normal 3.3-5.1 [facility] Comment on above: Result Comment: Canc elled via OM: Order cancelled - Patient discharged Performed By: #### L 100.0100, L500.2500 ####[facility] [address] [place], [address] Basic Metabolic Profile (BMP) Normal 133-145 [facility] Comment on above: Result Comment: Canc elled via OM: Order cancelled - Patient discharged Performed By: #### L 100.0100, L500.2500 ####[facility] [address] [place], [address] CBC W/Diff, Automatedon 05-2 Absolute Neut Normal 2.0-7.7 [facility] Comment on above: Result Comment: Canc elled via OM: Order cancelled - Patient discharged Performed By: #### L 100.0100, L500.2500 ####[facility] [address] [place], [address] HCT Normal 40-54 [facility] Comment on above: Result Comment: Canc elled via OM: Order cancelled - Patient discharged Performed By: #### L 100.0100, L500.2500 ####[facility] [address] [place], [address] HGB Normal 13.0-16.5 [facility] Comment on above: Result Comment: Canc elled via OM: Order cancelled - Patient discharged Performed By: #### L 100.0100, L500.2500 ####[facility] [address] [place], [address] MCH Normal 27.0-32.0 [facility] Comment on above: Result Comment: Canc elled via OM: Order cancelled - Patient discharged Performed By: #### L 100.0100, L500.2500 ####[facility] [address] [place], [address] MCHC Normal 32-36 [facility] Comment on above: Result Comment: Canc elled via OM: Order cancelled - Patient discharged Performed By: #### L 100.0100, L500.2500 ####[facility] [address] [place], [address] MCV Normal 80-94 [facility] Comment on above: Result Comment: Canc elled via OM: Order cancelled - Patient discharged Performed By: #### L 100.0100, L500.2500 ####[facility] [address] [place], [address] NEUT% Normal 47-70 [facility] Comment on above: Result Comment: Canc elled via OM: Order cancelled - Patient discharged Performed By: #### L 100.0100, L500.2500 ####[facility] [address] [place], [address] PLT Normal 150-450 [facility] Comment on above: Result Comment: Canc elled via OM: Order cancelled - Patient discharged Performed By: #### L 100.0100, L500.2500 ####[facility] [address] [place], [address] RBC Normal 4.6-6.2 [facility] Comment on above: Result Comment: Canc elled via OM: Order cancelled - Patient discharged Performed By: #### L 100.0100, L500.2500 ####[facility] [address] [place], [address] RDW CV Normal 11.6-14.6 [facility] Comment on above: Result Comment: Canc elled via OM: Order cancelled - Patient discharged Performed By: #### L 100.0100, L500.2500 ####[facility] [address] [place], [address] RDW SD Normal 35.1-43.9 [facility] Comment on above: Result Comment: Canc elled via OM: Order cancelled - Patient discharged Performed By: #### L 100.0100, L500.2500 ####[facility] [address] [place], [address] WBC Normal 4.4-11.0 [facility] Comment on above: Result Comment: Canc elled via OM: Order cancelled - Patient discharged Performed By: #### L 100.0100, L500.2500 ####[facility] [address] [place], [address] Absolute lymphocyte countOrd ered By: Jose J Winston on 06-28-2024 Lymphocytes Auto (Unsp spec) [#/Vol] 0.97 10*3/uL 0.83-4.51 [facility] Absolute neutrophil countOrd ered By: Jose Jalycia Winston on 06-28-2024 Neutrophils (Bld) [#/Vol] 6.6 10*3/uL 2.0-7.7 [facility] Anion gap in Serum or Plasma Ordered By: Jose J Winston on 06-28-2024 Anion gap [Moles/Vol] 12 mmol/L 5-15 [facility] Automated lymphocyte count a s percentage of total leukocytesOrdered By: Jose J Winston on 06-28-2024 Lymphocytes/100 WBC Auto (Unsp spec) 11.9 % Low 19- [facility] BUN/creatinine ratioOrdered By: Jose J Winston on 06-28-2024 Urea nitrogen/Creatinine [Mass ratio] 16.4 mg/mg - [facility] Basic Metabolic Profile (BMP )on 06-28-2024 BUN/CRE 16.4 RATIO Normal - [facility] Comment on above: Performed By: #### L 100.0100, L500.2500 ####[facility] [address] [place], [address] Calcium [Mass/Vol] 8.1 mg/dL Normal 7.6-11.0 [facility] Comment on above: Performed By: #### L 100.0100, L500.2500 ####[facility] [address] [place], [address] Chloride [Moles/Vol] 102 mmol/L Normal 98-108 [facility] Comment on above: Performed By: #### L 100.0100, L500.2500 ####[facility] [address] [place], [address] CO2 [Moles/Vol] 20.1 mmol/L Low 21.0-32.0 [facility] Comment on above: Performed By: #### L 100.0100, L500.2500 ####[facility] [address] [place], [address] Creatinine [Mass/Vol] 2.95 mg/dL High 0.70-1.20 [facility] Comment on above: Performed By: #### L 100.0100, L500.2500 ####[facility] [address] [place], [address] ECRCL 19.82 ml/min Low 50-250 [facility] Comment on above: Performed By: #### L 100.0100, L500.2500 ####[facility] [address] [place], [address] GAP 12 Normal 5-15 [facility] Comment on above: Performed By: #### L 100.0100, L500.2500 ####[facility] [address] [place], [address] GFR/1.73 sq M.predicted among non-blacks MDRD (S/P/Bld) [Vol rate/Area] 22 mL/min/{1.73_m2} Low >60 [facility] Comment on above: Result Comment: mL/m in/1.73m2 CKD-EPI Creatinine Equation (2020) Performed By: #### L 100.0100, L500.2500 ####[facility] [address] [place], [address] Glucose [Mass/Vol] 132 mg/dL High 70-99 [facility] Comment on above: Performed By: #### L 100.0100, L500.2500 ####[facility] [address] [place], [address] Potassium [Moles/Vol] 5.6 mmol/L High 3.3-5.1 [facility] Comment on above: Performed By: #### L 100.0100, L500.2500 ####[facility] [address] [place], [address] Sodium [Moles/Vol] 133 mmol/L Normal 133-145 [facility] Comment on above: Performed By: #### L 100.0100, L500.2500 ####[facility] [address] [place], [address] Urea nitrogen [Mass/Vol] 48 mg/dL High 4-19 [facility] Comment on above: Performed By: #### L 100.0100, L500.2500 ####[facility] [address] [place], [address] Basophil percentageOrdered B y: Jose J Winston on 06-28-2024 Basophils/100 WBC (Bld) 0.1 % 0-1 [facility] CBC W/Diff, Automatedon 06-08 Absolute Lymph 0.97 X10 3/uL Normal 0.83-4.51 [facility] Comment on above: Performed By: #### L 100.0100, L500.2500 ####[facility] [address] [place], [address] Absolute Neut 6.6 X10 3/uL Normal 2.0-7.7 [facility] Comment on above: Performed By: #### L 100.0100, L500.2500 ####[facility] [address] [place], [address] Basophils/100 WBC (Bld) 0.1 % Normal 0-1 [facility] Comment on above: Performed By: #### L 100.0100, L500.2500 ####[facility] [address] [place], [address] Eosinophils/100 WBC (Bld) 0.0 % Normal 0-5 [facility] Comment on above: Performed By: #### L 100.0100, L500.2500 ####[facility] [address] [place], [address] Erythrocyte distribution width (RBC) [Ratio] 13.6 % Normal 11.6-14.6 [facility] Comment on above: Performed By: #### L 100.0100, L500.2500 ####[facility] [address] [place], [address] Hematocrit (Bld) [Volume fraction] 36.7 % Low 40-54 [facility] Comment on above: Performed By: #### L 100.0100, L500.2500 ####[facility] [address] [place], [address] Hemoglobin (Bld) [Mass/Vol] 12.0 g/dL Low 13.0-16.5 [facility] Comment on above: Performed By: #### L 100.0100, L500.2500 ####[facility] [address] [place], [address] IG% 0.200 Normal 0.0-0.9 [facility] Comment on above: Result Comment: IG% - Immature Granulocytes (promyelocytes, myelocytes andmetamyelocytes) > 1% indicates that a LEFT SHIFT is Present. Performed By: #### L 100.0100, L500.2500 ####[facility] [address] [place], [address] Lymphocytes/100 WBC (Bld) 11.9 % Low 19-41 [facility] Comment on above: Performed By: #### L 100.0100, L500.2500 ####[facility] [address] [place], [address] MCH (RBC) [Entitic mass] 30.5 pg Normal 27.0-32.0 [facility] Comment on above: Performed By: #### L 100.0100, L500.2500 ####[facility] [address] [place], [address] MCHC (RBC) [Mass/Vol] 32.7 g/dL Normal 32-36 [facility] Comment on above: Performed By: #### L 100.0100, L500.2500 ####[facility] [address] [place], [address] MCV (RBC) [Entitic vol] 93.4 fL Normal 80-94 [facility] Comment on above: Performed By: #### L 100.0100, L500.2500 ####[facility] [address] [place], [address] Monocytes/100 WBC (Bld) 7.0 % Normal 0-10 [facility] Comment on above: Performed By: #### L 100.0100, L500.2500 ####[facility] [address] [place], [address] Neutrophils/100 WBC (Bld) 80.8 % High 47-70 [facility] Comment on above: Performed By: #### L 100.0100, L500.2500 ####[facility] [address] [place], [address] Nucleated RBC (Bld) [#/Vol] 0 10*3/uL Normal 0-5 [facility] Comment on above: Performed By: #### L 100.0100, L500.2500 ####[facility] [address] [place], [address] Platelet mean volume (Bld) [Entitic vol] 9.1 fL Normal 6.2-12.0 [facility] Comment on above: Performed By: #### L 100.0100, L500.2500 ####[facility] [address] [place], [address] Platelets (Bld) [#/Vol] 175 10*3/uL Normal 150-450 [facility] Comment on above: Performed By: #### L 100.0100, L500.2500 ####[facility] [address] [place], [address] RBC (Bld) [#/Vol] 3.93 10*6/uL Low 4.6-6.2 [facility] Comment on above: Performed By: #### L 100.0100, L500.2500 ####[facility] [address] [place], [address] RDW SD 46.7 fl High 35.1-43.9 [facility] Comment on above: Performed By: #### L 100.0100, L500.2500 ####[facility] [address] [place], [address] WBC (Bld) [#/Vol] 8.1 10*3/uL Normal 4.4-11.0 [facility] Comment on above: Performed By: #### L 100.0100, L500.2500 ####[facility] [address] [place], [address] Carbon dioxide, total [Moles /volume] in Central venous bloodOrdered By: Jose J Winston on 06-28-2024 CO2 [Moles/Vol] 20.1 mmol/L Low 21.0-32.0 [facility] Chloride assayOrdered By: Kelly Winston on 06-28-2024 Chloride [Moles/Vol] 102 mmol/L 98-108 [facility] Eosinophil percentageOrdered By: Jose J Winston on 06-28-2024 Eosinophils/100 WBC (Bld) 0.0 % 0-5 [facility] Erythrocyte distribution wid th ratioOrdered By: Jose J Winston on 06-28-2024 Erythrocyte distribution width (RBC) [Ratio] 13.6 % 11.6-14.6 [facility] Erythrocyte distribution wid th standard deviationOrdered By: Jose J Winston on 06-28-2024 Erythrocyte distribution width (RBC) [Ratio] 46.7 fl High 35.1-43.9 [facility] Glomerular filtration rate ( GFR) estimation/1.73 sq m using serum, plasma, or whole bOrdered By: Jose J Winston on 06-28-2024 GFR/1.73 sq M.predicted among non-blacks MDRD (S/P/Bld) [Vol rate/Area] 22 mL/min/{1.73_m2} Low >60 [facility] Comment on above: mL/min/1.73m2 CKD-EP I Creatinine Equation (2020) Hematocrit Auto (Bld) [Volum e fraction]Ordered By: Jose J Winston on 06-28-2024 Hematocrit (Bld) [Volume fraction] 36.7 % Low 40-54 [facility] Hemoglobin measurementOrdere d By: Jose J Winston on 06-28-2024 Hemoglobin (Bld) [Mass/Vol] 12.0 g/dL Low 13.0-16.5 [facility] Immature granulocytes/100 WB C Auto (Bld)Ordered By: Jose J Winston on 06-28-2024 Immature granulocytes/100 WBC (Bld) 0.200 % 0.0-0.9 [facility] Comment on above: IG% - Immature Granu locytes (promyelocytes, myelocytes and metamyelocytes) > 1% indicates that a LEFT SHIFT is Present. MCV (mean corpuscular volume ) determinationOrdered By: Jose J Winston on 06-28-2024 MCV (RBC) [Entitic vol] 93.4 fL 80-94 [facility] Mean corpuscular hemoglobin (MCH) determinationOrdered By: Jose J Winston 06-28-2024 MCH (RBC) [Entitic mass] 30.5 pg 27.0-32.0 [facility] Mean corpuscular hemoglobin concentration (MCHC) determinationOrdered By: Jose J Winston 06-28-2024 MCHC (RBC) [Mass/Vol] 32.7 g/dL 32-36 [facility] Mean platelet volume determi nationOrdered By: Jose J Winston on 06-28-2024 Platelet mean volume (Bld) [Entitic vol] 9.1 fL 6.2-12.0 [facility] Monocyte percentageOrdered B y: Jose J Winston on 06-28-2024 Monocytes/100 WBC (Bld) 7.0 % 0-10 [facility] Neutrophil percentageOrdered By: Jose J Winston on 06-28-2024 Neutrophils/100 WBC (Bld) 80.8 % High 47-70 [facility] Nucleated red blood cell per centageOrdered By: Jose J Winston on 06-28-2024 Nucleated RBC/100 WBC (Bld) [Ratio] 0 % 0-5 [facility] Platelet countOrdered By: Kelly Winston on 06-28-2024 Platelets (Bld) [#/Vol] 175 10*3/uL 150-450 [facility] Potassiumon 06-28-2024 Potassium [Moles/Vol] 5.0 mmol/L Normal 3.3-5.1 [facility] Comment on above: Performed By: #### L 501.5600 ####[facility] [address] [place], [address] Potassium measurement (mass/ volume)Ordered By: Jose J Winston on 06-28-2024 Potassium (Unsp spec) [Mass/Vol] 5.0 mmol/L 3.3-5.1 [facility] RBC Auto (Bld) [#/Vol]Ordere d By: Jose J Winston on 06-28-2024 RBC (Bld) [#/Vol] 3.93 10*6/uL Low 4.6-6.2 [facility] Serum creatinine measurement (mass/volume)Ordered By: Jose J Winston on 06-28-2024 Creatinine [Mass/Vol] 2.95 mg/dL High 0.70-1.20 [facility] Serum glucose measurement (m ass/volume)Ordered By: Jose J Winston on 06-28-2024 Glucose [Mass/Vol] 132 mg/dL High 70-99 [facility] Serum or plasma calcium jamel urement (mass/volume)Ordered By: Jose J Winston on 06-28-2024 Calcium [Mass/Vol] 8.1 mg/dL 7.6-11.0 [facility] Serum or plasma urea nitroge n measurement (mass/volume)Ordered By: Jose J Winston on 06-28-2024 Urea nitrogen [Mass/Vol] 48 mg/dL High 4-19 [facility] Sodium levelOrdered By: Jose J Winston on 06-28-2024 Sodium [Moles/Vol] 133 mmol/L 133-145 [facility] White blood cell (WBC) count Ordered By: Jose J Winston on 06-28-2024 WBC (Bld) [#/Vol] 8.1 10*3/uL 4.4-11.0 [facility] Discharge Instructionon 06-08 Discharge Instruction Normal [facility] Immunohistochemical Stainson 06-27-2024 Immunohistochemical Stains Normal [facility] Comment on above: Performed By: #### P IMHI ####[facility] [address] [place], [address] MR/POSTOP.ANEon 06-27-2024 MR/POSTOP.ANE Normal [facility] MR/EQFDLOZP6yb 06-27-2024 MR/POSTOPAN2 Normal [facility] Operative Reporton Operative Report Normal [facility] MR/PAT.ANEon 06-25-2024 MR/PAT.ANE [facility] Urine Cultureon 06-22-2024 URC Culture exhibits no growth. Normal [facility] Comment on above: Performed By: #### M 100.2200 ####[facility] [address] [place], [address] Abdomen/Pelvis WITH Contrast on 06-21-2024 Abdomen/Pelvis WITH Contrast Normal [facility] CREATININE FINGERSTICKon Creatinine [Mass/Vol] 1.8 mg/dL High 0.70-1.30 [facility] Comment on above: Performed By: #### L 9100.0200 ####[facility] [address] [place], [place], [address] GFR/1.73 sq M.predicted among non-blacks MDRD (S/P/Bld) [Vol rate/Area] 39.0000 mL/min/{1.73_m2} Low >60 [facility] Comment on above: Performed By: #### L 9100.0200 ####[facility] [address] [place], [place], [address] Creatinine measurement at dsideOrdered By: Jose J Winston on 06-21-2024 Creatinine [Mass/Vol] 1.8 mg/dL High 0.70-1.30 [facility] EGFROrdered By: Jose J Winston on 06-21-2024 GFR/1.73 sq M.predicted among non-blacks MDRD (S/P/Bld) [Vol rate/Area] 39.0000 mL/min/{1.73_m2} Low >60 [facility] Urine cultureOrdered By: Casimiro Winston on 06-21-2024 Bacteria identified Cx Nom (U) Culture exhibits no growth. [facility] 12 Lead EKG performed by [facility] on 06-19-2024 12 Lead EKG performed by [facility] Normal [facility] 12 lead electrocardiography reportOrdered By: Nito Rosales on 06-19-2024 EKG study [facility] [address] [place] [address] 12 Lead EKG performed by [facility] 06/19/24 0614 MR#: [id number] Acct: [id number] Name: ABELARDO IVORY Rep #:[id number] : 1950 74 From: Nito ACUNA Attending Dr: KALPANA Awad St atus: PRE AMB Ordering Dr: Nito Rosales Date: 06/19/24 Location: [facility] Sex: M C Admitted: BMS/12 Lead EKG performed by [facility] ECG Report Interpretation ---Sinus Bradycardia WITHIN NORMAL LIMITSElectronically signed on 06/19/2024 at 08:20 by Raheem Farrar Software Version [id number] 06/19/24 0821 Date _ Nito ACUNA CC: Dr. Padmini Carrasco MD ~ Date Dictated: 06/19/24613 Date Transcribed: 06/19/24613 Junior Engineer: FREDDIE Signed [employer] Work Phone: Cardiology Visit Reporton Cardiology Visit Report [facility] MR/PAT.ANEon 06-13-2024 MR/PAT.ANE [facility] Cytology report of Body flui d Cyto stainOrdered By: Jose J Winston on 05-28-2024 Cytology report Cyto stain Doc (Body fld) SEE PATHOLOGY REPORT [facility] Comment on above: Specimen submitted t o Anatomical Pathology Department for testing. Cytology, Body Fluid / CSFon 05-28-2024 CYTOLOGY,BF/CSF SEE PATHOLOGY REPORT [facility] Comment on above: Order Comment: URINE Result Comment: Spec imen submitted to Anatomical Pathology Department fortesting. Performed By: #### L 350.1000 ####[facility] [address] [place], [place], [address] Pap Stain (control)on 2024 Pap Stain (control) Normal [facility] Comment on above: Performed By: #### P PAPS ####[facility] [address] [place], [place], [address] Urine Cultureon 05-18-2024 URC Below infection leve l. 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 [place], [place], [address] Emergency Department Summary on 05-17-2024 Emergency Department Summary Normal [facility] Abdomen/Pelvis without Conto n 04-09-2025 Abdomen/Pelvis without Cont Normal [facility] Absolute lymphocyte countOrd ered By: Jeffery Turpin on 05-16-2024 Lymphocytes Auto (Unsp spec) [#/Vol] 1.76 10*3/uL 0.83-4.51 [facility] Absolute neutrophil countOrd ered By: Jeffery Turpin on 05-16-2024 Neutrophils (Bld) [#/Vol] 4.7 10*3/uL 2.0-7.7 [facility] Anion gap in Serum or Plasma Ordered By: Jeffery Turpin on 05-16-2024 Anion gap [Moles/Vol] 14 mmol/L 5-15 [facility] Automated lymphocyte count a s percentage of total leukocytesOrdered By: Jeffery Turpin on 05-16-2024 Lymphocytes/100 WBC Auto (Unsp spec) 24.2 % 19-41 [facility] BUN/creatinine ratioOrdered By: Jeffery Turpin on 05-16-2024 Urea nitrogen/Creatinine [Mass ratio] 20.9 mg/mg High 10- [facility] Basic Metabolic Profile (BMP )on 05-16-2024 BUN/CRE 20.9 RATIO High 10- [facility] Comment on above: Performed By: #### L 100.0100, L500.2500 ####[facility] [address] [place], [address] Calcium [Mass/Vol] 9.1 mg/dL Normal 7.6-11.0 [facility] Comment on above: Performed By: #### L 100.0100, L500.2500 ####[facility] [address] [place], [address] Chloride [Moles/Vol] 102 mmol/L Normal 98-108 [facility] Comment on above: Performed By: #### L 100.0100, L500.2500 ####[facility] [address] [place], [address] CO2 [Moles/Vol] 20.7 mmol/L Low 21.0-32.0 [facility] Comment on above: Performed By: #### L 100.0100, L500.2500 ####[facility] [address] [place], [address] Creatinine [Mass/Vol] 1.47 mg/dL High 0.70-1.20 [facility] Comment on above: Performed By: #### L 100.0100, L500.2500 ####[facility] [address] [place], [address] ECRCL 39.78 ml/min Low 50-250 [facility] Comment on above: Performed By: #### L 100.0100, L500.2500 ####[facility] [address] [place], [address] GAP 14 Normal 5-15 [facility] Comment on above: Performed By: #### L 100.0100, L500.2500 ####[facility] [address] [place], [address] GFR/1.73 sq M.predicted among non-blacks MDRD (S/P/Bld) [Vol rate/Area] 50 mL/min/{1.73_m2} Low >60 [facility] Comment on above: Result Comment: mL/m in/1.73m2 CKD-EPI Creatinine Equation (2020) Performed By: #### L 100.0100, L500.2500 ####[facility] [address] [place], [address] Glucose [Mass/Vol] 145 mg/dL High 70-99 [facility] Comment on above: Performed By: #### L 100.0100, L500.2500 ####[facility] [address] [place], [address] Potassium [Moles/Vol] 4.5 mmol/L Normal 3.3-5.1 [facility] Comment on above: Performed By: #### L 100.0100, L500.2500 ####[facility] [address] [place], [address] Sodium [Moles/Vol] 136 mmol/L Normal 133-145 [facility] Comment on above: Performed By: #### L 100.0100, L500.2500 ####[facility] [address] [place], [address] Urea nitrogen [Mass/Vol] 31 mg/dL High 4-19 [facility] Comment on above: Performed By: #### L 100.0100, L500.2500 ####[facility] [address] [place], [address] Basophil percentageOrdered B y: Jeffery Turpin on 05-16-2024 Basophils/100 WBC (Bld) 0.6 % 0-1 [facility] Bilirubin Test strip Ql (U)O rdered By: Jefferykecia Turpin on 05-16-2024 Bilirubin Ql (U) Negative Negative [facility] CBC W/Diff, Automatedon 04- Absolute Lymph 1.76 X10 3/uL Normal 0.83-4.51 [facility] Comment on above: Performed By: #### L 100.0100, L500.2500 ####[facility] [address] [place], [address] Absolute Neut 4.7 X10 3/uL Normal 2.0-7.7 [facility] Comment on above: Performed By: #### L 100.0100, L500.2500 ####[facility] [address] [place], [address] Basophils/100 WBC (Bld) 0.6 % Normal 0-1 [facility] Comment on above: Performed By: #### L 100.0100, L500.2500 ####[facility] [address] [place], [address] Eosinophils/100 WBC (Bld) 2.2 % Normal 0-5 [facility] Comment on above: Performed By: #### L 100.0100, L500.2500 ####[facility] [address] [place], [address] Erythrocyte distribution width (RBC) [Ratio] 12.8 % Normal 11.6-14.6 [facility] Comment on above: Performed By: #### L 100.0100, L500.2500 ####[facility] [address] [place], [address] Hematocrit (Bld) [Volume fraction] 42.7 % Normal 40-54 [facility] Comment on above: Performed By: #### L 100.0100, L500.2500 ####[facility] [address] [place], [address] Hemoglobin (Bld) [Mass/Vol] 14.1 g/dL Normal 13.0-16.5 [facility] Comment on above: Performed By: #### L 100.0100, L500.2500 ####[facility] [address] [place], [address] IG% 0.300 Normal 0.0-0.9 [facility] Comment on above: Result Comment: IG% - Immature Granulocytes (promyelocytes, myelocytes andmetamyelocytes) > 1% indicates that a LEFT SHIFT is Present. Performed By: #### L 100.0100, L500.2500 ####[facility] [address] [place], [address] Lymphocytes/100 WBC (Bld) 24.2 % Normal 19-41 [facility] Comment on above: Performed By: #### L 100.0100, L500.2500 ####[facility] [address] [place], [address] MCH (RBC) [Entitic mass] 30.4 pg Normal 27.0-32.0 [facility] Comment on above: Performed By: #### L 100.0100, L500.2500 ####[facility] [address] [place], [address] MCHC (RBC) [Mass/Vol] 33.0 g/dL Normal 32-36 [facility] Comment on above: Performed By: #### L 100.0100, L500.2500 ####[facility] [address] [place], [address] MCV (RBC) [Entitic vol] 92.0 fL Normal 80-94 [facility] Comment on above: Performed By: #### L 100.0100, L500.2500 ####[facility] [address] [place], [address] Monocytes/100 WBC (Bld) 8.1 % Normal 0-10 [facility] Comment on above: Performed By: #### L 100.0100, L500.2500 ####[facility] [address] [place], [address] Neutrophils/100 WBC (Bld) 64.6 % Normal 47-70 [facility] Comment on above: Performed By: #### L 100.0100, L500.2500 ####[facility] [address] [place], [address] Nucleated RBC (Bld) [#/Vol] 0 10*3/uL Normal 0-5 [facility] Comment on above: Performed By: #### L 100.0100, L500.2500 ####[facility] [address] [place], [address] Platelet mean volume (Bld) [Entitic vol] 8.5 fL Normal 6.2-12.0 [facility] Comment on above: Performed By: #### L 100.0100, L500.2500 ####[facility] [address] [place], [address] Platelets (Bld) [#/Vol] 151 10*3/uL Normal 150-450 [facility] Comment on above: Performed By: #### L 100.0100, L500.2500 ####[facility] [address] [place], [address] RBC (Bld) [#/Vol] 4.64 10*6/uL Normal 4.6-6.2 [facility] Comment on above: Performed By: #### L 100.0100, L500.2500 ####[facility] [address] [place], [address] RDW SD 43.4 fl Normal 35.1-43.9 [facility] Comment on above: Performed By: #### L 100.0100, L500.2500 ####[facility] [address] [place], [address] WBC (Bld) [#/Vol] 7.3 10*3/uL Normal 4.4-11.0 [facility] Comment on above: Performed By: #### L 100.0100, L500.2500 ####[facility] [address] [place], [address] Carbon dioxide, total [Moles /volume] in Central venous bloodOrdered By: Jeffery Turpin on 05-16-2024 CO2 [Moles/Vol] 20.7 mmol/L Low 21.0-32.0 [facility] Chloride assayOrdered By: Kelly Turpin on 05-16-2024 Chloride [Moles/Vol] 102 mmol/L 98-108 [facility] Eosinophil percentageOrdered By: Jeffery Turpin on 05-16-2024 Eosinophils/100 WBC (Bld) 2.2 % 0-5 [facility] Epithelial cells.squamous LM Ql (Urine sed)Ordered By: Jeffery Turpin on 05-16-2024 Epithelial cells.squamous LM.HPF (Urine sed) [#/Area] 0 /[HPF] 0-5 [facility] Erythrocyte distribution wid th (RBC) [Ratio]Ordered By: Jeffery Turpin on 05-16-2024 Erythrocyte distribution width (RBC) [Entitic vol] 43.4 fL 35.1-43.9 [facility] Erythrocyte distribution wid th ratioOrdered By: Jeffery Turpin on 05-16-2024 Erythrocyte distribution width (RBC) [Ratio] 12.8 % 11.6-14.6 [facility] Erythrocyte distribution wid th standard deviationOrdered By: Jeffery Turpin on 05-16-2024 Erythrocyte distribution width (RBC) [Ratio] 43.4 fl 35.1-43.9 [facility] Estimation of creatinine dominique aranceOrdered By: Jeffery Turpin on 05-16-2024 Estimated Creatinine Clearance Calc 39.78 ml/min Low 50-250 [facility] GFR/1.73 sq M.predicted kasie g non-blacks MDRD (S/P/Bld) [Vol rate/Area]Ordered By: Jeffery Turpin on 05-16-2024 Estimated GFR (MDRD) Non-Af Amer 50 Low >60 [facility] Comment on above: mL/min/1.73m2 CKD-EP I Creatinine Equation (2020) Glomerular filtration rate ( GFR) estimation/1.73 sq m using serum, plasma, or whole bOrdered By: Jeffery Turpin on 05-16-2024 GFR/1.73 sq M.predicted among non-blacks MDRD (S/P/Bld) [Vol rate/Area] 50 mL/min/{1.73_m2} Low >60 [facility] Comment on above: mL/min/1.73m2 CKD-EP I Creatinine Equation (2020) Glucose Ql (U)Ordered By: Kelly Turpin on 05-16-2024 Urine Glucose (UA) Normal mg/dl Normal [facility] Hematocrit Auto (Bld) [Volum e fraction]Ordered By: Jeffery Turpin on 05-16-2024 Hematocrit (Bld) [Volume fraction] 42.7 % 40-54 [facility] Hemoglobin measurementOrdere d By: Jeffery Turpin on 05-16-2024 Hemoglobin (Bld) [Mass/Vol] 14.1 g/dL 13.0-16.5 [facility] Immature granulocytes/100 WB C Auto (Bld)Ordered By: Jeffery Turpin on 05-16-2024 Immature granulocytes/100 WBC (Bld) 0.300 % 0.0-0.9 [facility] Comment on above: IG% - Immature Granu locytes (promyelocytes, myelocytes and metamyelocytes) > 1% indicates that a LEFT SHIFT is Present. Ketones Test strip Ql (U)Ord ered By: Jeffery Turpin on 05-16-2024 Ketones Ql (U) Negative Negative [facility] Lymphocytes Auto (Unsp spec) [#/Vol]Ordered By: Jeffery Turpin on 05-16-2024 Lymphocytes (Bld) [#/Vol] 1.76 10*3/uL 0.83-4.51 [facility] Lymphocytes/100 WBC Auto (Un sp spec)Ordered By: Jeffery Turpin on 05-16-2024 Lymphocytes/100 WBC (Bld) 24.2 % 19-41 [facility] MCV (mean corpuscular volume ) determinationOrdered By: Jeffery Turpin on 05-16-2024 MCV (RBC) [Entitic vol] 92.0 fL 80-94 [facility] Mean corpuscular hemoglobin (MCH) determinationOrdered By: Jeffery Turpin on 05-16-2024 MCH (RBC) [Entitic mass] 30.4 pg 27.0-32.0 [facility] Mean corpuscular hemoglobin concentration (MCHC) determinationOrdered By: Jeffery Turpin on 05-16-2024 MCHC (RBC) [Mass/Vol] 33.0 g/dL 32-36 [facility] Mean platelet volume determi nationOrdered By: Jeffery Turpin on 05-16-2024 Platelet mean volume (Bld) [Entitic vol] 8.5 fL 6.2-12.0 [facility] Microscopic analysis of urin e for red blood cells (RBC)Ordered By: Jeffery Turpin on 05-16-2024 Microscopic analysis of urine for red blood cells (RBC) > 100 SEEN /hpf 0-5 [facility] Comment on above: Microscopic field is filled. Other elements may be obscured. Urine RBC > 100 SEEN /hpf 0-5 [facility] Comment on above: Microscopic field is filled. Other elements may be obscured. Monocyte percentageOrdered B y: Jeffery Turpin on 05-16-2024 Monocytes/100 WBC (Bld) 8.1 % 0-10 [facility] Mucus LM Ql (Urine sed)Order ed By: Jeffery Turpin on 05-16-2024 Mucus Ql (Urine sed) 0 SEEN /hpf [facility] Neutrophil percentageOrdered By: Jeffery Turpin on 05-16-2024 Neutrophils/100 WBC (Bld) 64.6 % 47-70 [facility] Nitrite Test strip Ql (U)Ord ered By: Jeffery Turpin on 05-16-2024 Nitrite Ql (U) Positive High Negative [facility] Nucleated red blood cell per centageOrdered By: Jeffery Turpin on 05-16-2024 Nucleated RBC/100 WBC (Bld) [Ratio] 0 % 0-5 [facility] Platelet countOrdered By: Kelly Turpin on 05-16-2024 Platelets (Bld) [#/Vol] 151 10*3/uL 150-450 [facility] Potassium (Unsp spec) [Mass/ Vol]Ordered By: Jeffery Turpin on 05-16-2024 Potassium [Moles/Vol] 4.5 mmol/L 3.3-5.1 [facility] Potassium measurement (mass/ volume)Ordered By: Jeffery Turpin on 05-16-2024 Potassium (Unsp spec) [Mass/Vol] 4.5 mmol/L 3.3-5.1 [facility] Protein Test strip Ql (U)Ord ered By: Jeffery Turpin on 05-16-2024 Protein Ql (U) 100 mg/dl High Negative [facility] RBC Auto (Bld) [#/Vol]Ordere d By: Jeffery Turpin on 05-16-2024 RBC (Bld) [#/Vol] 4.64 10*6/uL 4.6-6.2 [facility] RBC casts LM Ql (Urine sed)O rdered By: Jeffery Turpin on 05-16-2024 Urine Red Blood Cell Casts 0-5 SEEN /lpf None Seen [facility] Serum creatinine measurement (mass/volume)Ordered By: Jeffery Turpin on 05-16-2024 Creatinine [Mass/Vol] 1.47 mg/dL High 0.70-1.20 [facility] Serum glucose measurement (m ass/volume)Ordered By: Jeffery Turpin on 05-16-2024 Glucose [Mass/Vol] 145 mg/dL High 70-99 [facility] Serum or plasma calcium jamel urement (mass/volume)Ordered By: Jeffery Turpin on 05-16-2024 Calcium [Mass/Vol] 9.1 mg/dL 7.6-11.0 [facility] Serum or plasma urea nitroge n measurement (mass/volume)Ordered By: Jeffery Turpin on 05-16-2024 Urea nitrogen [Mass/Vol] 31 mg/dL High 4-19 [facility] Sodium levelOrdered By: Domo Turpin on 05-16-2024 Sodium [Moles/Vol] 136 mmol/L 133-145 [facility] Squamous epithelial cells de tection in urine sediment by light microscopyOrdered By: Jeffery Turpin on 05-16-2024 Epithelial cells.squamous LM Ql (Urine sed) 0-5 SEEN /hpf 0-5 [facility] Urinalysis, Completeon 05-16 BACTERIA 1+ /hpf Normal None Seen [facility] Comment on above: Order Comment: COLOR OF URINE MAY AFFECT DIPSTICK RESULTS.CLEAN CATCH Performed By: #### L 400.0001 ####[facility] [address] [place], [address] CAST,RBC 0-5 SEEN Normal None Seen [facility] Comment on above: Order Comment: COLOR OF URINE MAY AFFECT DIPSTICK RESULTS.CLEAN CATCH Performed By: #### L 400.0001 ####[facility] [address] [place], [address] EPI,SQUAMOUS 0-5 SEEN Normal 0-5 [facility] Comment on above: Order Comment: COLOR OF URINE MAY AFFECT DIPSTICK RESULTS.CLEAN CATCH Performed By: #### L 400.0001 ####[facility] [address] [place], [address] RBC > 100 SEEN Normal 0-5 [facility] Comment on above: Order Comment: COLOR OF URINE MAY AFFECT DIPSTICK RESULTS.CLEAN CATCH Result Comment: Micr oscopic field is filled. Other elements may beobscured. Performed By: #### L 400.0001 ####[facility] [address] [place], [address] WBC 10-25 SEEN Normal 0-5 [facility] Comment on above: Order Comment: COLOR OF URINE MAY AFFECT DIPSTICK RESULTS.CLEAN CATCH Performed By: #### L 400.0001 ####[facility] [address] [place], [address] BILIRUBIN URINE Negative Normal Negative [facility] Comment on above: Order Comment: COLOR OF URINE MAY AFFECT DIPSTICK RESULTS.CLEAN CATCH Performed By: #### L 400.0001 ####[facility] [address] [place] [id number] Clarity (U) Cloudy Normal Clear [facility] Comment on above: Order Comment: COLOR OF URINE MAY AFFECT DIPSTICK RESULTS.CLEAN CATCH Performed By: #### L 400.0001 ####[facility] [address] [place] [address] Color (U) Red Normal Yellow [facility] Comment on above: Order Comment: COLOR OF URINE MAY AFFECT DIPSTICK RESULTS.CLEAN CATCH Performed By: #### L 400.0001 ####[facility] [address] [place], [address] GLUCOSE, UR Normal Normal Normal [facility] Comment on above: Order Comment: COLOR OF URINE MAY AFFECT DIPSTICK RESULTS.CLEAN CATCH Performed By: #### L 400.0001 ####[facility] [address] [place] [phone] KETONE UR Negative Normal Negative [facility] Comment on above: Order Comment: COLOR OF URINE MAY AFFECT DIPSTICK RESULTS.CLEAN CATCH Performed By: #### L 400.0001 ####[facility] [address] [place] [phone] LEUK ESTERASE 25 /ul Abnormal Negative [facility] Comment on above: Order Comment: COLOR OF URINE MAY AFFECT DIPSTICK RESULTS.CLEAN CATCH Performed By: #### L 400.0001 ####[facility] [address] [place], [address] Nitrite Ql (U) Positive Abnormal Negative [facility] Comment on above: Order Comment: COLOR OF URINE MAY AFFECT DIPSTICK RESULTS.CLEAN CATCH Performed By: #### L 400.0001 ####[facility] [address] [place], [address] OCCULT BLOOD-UR 250 /ul Abnormal Negative [facility] Comment on above: Order Comment: COLOR OF URINE MAY AFFECT DIPSTICK RESULTS.CLEAN CATCH Performed By: #### L 400.0001 ####[facility] [address] [place], [address] pH UR 6.0 Normal 5.0 - 8.0 [facility] Comment on above: Order Comment: COLOR OF URINE MAY AFFECT DIPSTICK RESULTS.CLEAN CATCH Performed By: #### L 400.0001 ####[facility] [address] [place], [address] PROT DIPSTX 100 mg/dl Abnormal Negative [facility] Comment on above: Order Comment: COLOR OF URINE MAY AFFECT DIPSTICK RESULTS.CLEAN CATCH Performed By: #### L 400.0001 ####[facility] [address] [place], [address] SP.GR. DIPSTX 1.020 Normal 1.002-1.030 [facility] Comment on above: Order Comment: COLOR OF URINE MAY AFFECT DIPSTICK RESULTS.CLEAN CATCH Performed By: #### L 400.0001 ####[facility] [address] [place], [address] UROBILI Normal Normal Normal [facility] Comment on above: Order Comment: COLOR OF URINE MAY AFFECT DIPSTICK RESULTS.CLEAN CATCH Performed By: #### L 400.0001 ####[facility] [address] [place], [address] Mucus Ql (Urine sed) 0 SEEN Normal [facility] Comment on above: Order Comment: COLOR OF URINE MAY AFFECT DIPSTICK RESULTS.CLEAN CATCH Performed By: #### L 400.0001 ####[facility] [address] [place], [address] Urine blood detectionOrdered By: Jeffery Turpin on 05-16-2024 Urine Occult Blood 250 /ul High Negative [facility] Urine clarityOrdered By: Kevin Turpin on 05-16-2024 Clarity (U) Cloudy Clear [facility] Urine color determinationOrd ered By: Jeffery Turpin on 05-16-2024 Color (U) Red Yellow [facility] Urine cultureOrdered By: Kevin Turpin on 05-16-2024 Bacteria identified Cx Nom (U) GNR lactose 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 Abnormal [facility] Urine glucose detectionOrder ed By: Jeffery Turpin on 05-16-2024 Glucose Ql (U) Normal mg/dl Normal [facility] Urine leukocyte esterase det ection by dipstickOrdered By: Jeffery Turpin on 05-16-2024 Leukocyte esterase Test strip Ql (U) 25 /ul High Negative [facility] Urine pHOrdered By: Jeffery de la torre on 05-16-2024 pH (U) 6.0 [pH] 5.0 - 8.0 [facility] Urine sediment bacteria coun t by microscopy (number/high power field)Ordered By: Jeffery Turpin on 05-16-2024 Bacteria LM.HPF (Urine sed) [#/Area] 1 /[HPF] None Seen [facility] Urine sediment erythrocyte c ast detection by light microscopyOrdered By: Jeffery Turpin on 05-16-2024 RBC casts LM Ql (Urine sed) 0-5 SEEN /lpf None Seen [facility] Urine specific gravity measu rementOrdered By: Jeffery Turpin on 05-16-2024 Specific gravity (U) [Rel density] 1.020 1.002-1.030 [facility] Urine urobilinogen measureme ntOrdered By: Jeffery Turpin on 05-16-2024 Urobilinogen Ql (U) Normal mg/dl Normal [facility] Urobilinogen Ql (U)Ordered B y: Jeffery Turpin on 04-09-2025 Urine Urobilinogen Normal mg/dl Normal [facility] White blood cell (WBC) count Ordered By: Jeffery Turpin on 05-16-2024 WBC (Bld) [#/Vol] 7.3 10*3/uL 4.4-11.0 [facility] White blood cell countOrdere d By: Jeffery Turpin on 05-16-2024 Urine WBC 10-25 SEEN /hpf 0-5 [facility] White blood cell count 10-25 SEEN /hpf 0-5 [facility] Anion gap in Serum or Plasma Ordered By: Padmini Carrasco on 05-10-2024 Anion gap [Moles/Vol] 12 mmol/L 5-15 [facility] BUN/creatinine ratioOrdered By: Padmini Carrasco on 05-10-2024 Urea nitrogen/Creatinine [Mass ratio] 16.8 mg/mg 10-20 [facility] Basic Metabolic Profile (BMP )on 05-10-2024 BUN Normal 4-19 [facility] Comment on above: Order Comment: Order Date: 06/16/23Order Info: [id number] - BMP Result Comment: ADDE D TO 05/10/24 LAB DRAW Performed By: #### L 100.0500, L500.2500 ####[facility] [address] [place], [address] BUN/CRE Normal 10-20 [facility] Comment on above: Order Comment: Order Date: 06/16/23Order Info: [id number] - BMP Result Comment: ADDE D TO 05/10/24 LAB DRAW Performed By: #### L 100.0500, L500.2500 ####[facility] [address] [place], [address] Calcium Normal 7.6-11.0 [facility] Comment on above: Order Comment: Order Date: 06/16/23Order Info: [id number] - BMP Result Comment: ADDE D TO 05/10/24 LAB DRAW Performed By: #### L 100.0500, L500.2500 ####[facility] [address] [place], [address] CL Normal 98-108 [facility] Comment on above: Order Comment: Order Date: 06/16/23Order Info: [id number]- - BMP Result Comment: ADDE D TO 05/10/24 LAB DRAW Performed By: #### L 100.0500, L500.2500 ####[facility] [address] [place], [address] CO2 Normal 21.0-32.0 [facility] Comment on above: Order Comment: Order Date: 06/16/23Order Info: 666- - BMP Result Comment: ADDE D TO 05/10/24 LAB DRAW Performed By: #### L 100.0500, L500.2500 ####[facility] [address] [place], [address] CREAT,SERUM Normal 0.70-1.20 [facility] Comment on above: Order Comment: Order Date: 06/16/23Order Info: 666- - BMP Result Comment: ADDE D TO 05/10/24 LAB DRAW Performed By: #### L 100.0500, L500.2500 ####[facility] [address] [place], [address] eGFR Normal >60 [facility] Comment on above: Order Comment: Order Date: 06/16/23Order Info: 06- - BMP Result Comment: ADDE D TO 05/10/24 LAB DRAW Performed By: #### L 100.0500, L500.2500 ####[facility] [address] [place], [address] GAP Normal 5-15 [facility] Comment on above: Order Comment: Order Date: 06/16/23Order Info: 06- - BMP Result Comment: ADDE D TO 05/10/24 LAB DRAW Performed By: #### L 100.0500, L500.2500 ####[facility] [address] [place], [address] GLU Normal 70-99 [facility] Comment on above: Order Comment: Order Date: 06/16/23Order Info: [id number] - BMP Result Comment: ADDE D TO 05/10/24 LAB DRAW Performed By: #### L 100.0500, L500.2500 ####[facility] [address] [place], [address] Potassium Normal 3.3-5.1 [facility] Comment on above: Order Comment: Order Date: 06/16/23Order Info: [id number] - BMP Result Comment: ADDE D TO 05/10/24 LAB DRAW Performed By: #### L 100.0500, L500.2500 ####[facility] [address] [place], [address] Basic Metabolic Profile (BMP) Normal 133-145 [facility] Comment on above: Order Comment: Order Date: 06/16/23Order Info: [id number] - BMP Result Comment: ADDE D TO 05/10/24 LAB DRAW Performed By: #### L 100.0500, L500.2500 ####[facility] [address] [place], [address] Bilirubin, totalOrdered By: Padmini Carrasco on 05-10-2024 Bilirubin [Mass/Vol] 0.18 mg/dL 0.00-1.30 [facility] CBC-Complete Blood Cnt No Di ffon 05-10-2024 Erythrocyte distribution width (RBC) [Ratio] 13.2 % Normal 11.6-14.6 [facility] Comment on above: Order Comment: Order Date: 10/12/23Order Info: [id number] - CBC Performed By: #### L 503.6150, L100.0500 ####[facility] [address] [place], [address] Hematocrit (Bld) [Volume fraction] 42.5 % Normal 40-54 [facility] Comment on above: Order Comment: Order Date: 10/12/23Order Info: [id number] - CBC Performed By: #### L 503.6150, L100.0500 ####[facility] [address] [place], [address] Hemoglobin (Bld) [Mass/Vol] 13.6 g/dL Normal 13.0-16.5 [facility] Comment on above: Order Comment: Order Date: 10/12/23Order Info: [id number] - CBC Performed By: #### L 503.6150, L100.0500 ####[facility] [address] [place], [address] MCH (RBC) [Entitic mass] 30.0 pg Normal 27.0-32.0 [facility] Comment on above: Order Comment: Order Date: 10/12/23Order Info: [id number] - CBC Performed By: #### L 503.6150, L100.0500 ####[facility] [address] [place], [address] MCHC (RBC) [Mass/Vol] 32.0 g/dL Normal 32-36 [facility] Comment on above: Order Comment: Order Date: 10/12/23Order Info: [id number] - CBC Performed By: #### L 503.6150, L100.0500 ####[facility] [address] [place], [address] MCV (RBC) [Entitic vol] 93.8 fL Normal 80-94 [facility] Comment on above: Order Comment: Order Date: 10/12/23Order Info: [id number] - CBC Performed By: #### L 503.6150, L100.0500 ####[facility] [address] [place], [address] Platelet mean volume (Bld) [Entitic vol] 9.2 fL Normal 6.2-12.0 [facility] Comment on above: Order Comment: Order Date: 10/12/23Order Info: [id number] - CBC Performed By: #### L 503.6150, L100.0500 ####[facility] [address] [place], [address] Platelets (Bld) [#/Vol] 168 10*3/uL Normal 150-450 [facility] Comment on above: Order Comment: Order Date: 10/12/23Order Info: [id number] - CBC Performed By: #### L 503.6150, L100.0500 ####[facility] [address] [place], [address] RBC (Bld) [#/Vol] 4.53 10*6/uL Low 4.6-6.2 [facility] Comment on above: Order Comment: Order Date: 10/12/23Order Info: [id number] - CBC Performed By: #### L 503.6150, L100.0500 ####[facility] [address] [place], [address] RDW SD 45.1 fl High 35.1-43.9 [facility] Comment on above: Order Comment: Order Date: 10/12/23Order Info: [id number] - CBC Performed By: #### L 503.6150, L100.0500 ####[facility] [address] [place], [address] WBC (Bld) [#/Vol] 6.9 10*3/uL Normal 4.4-11.0 [facility] Comment on above: Order Comment: Order Date: 10/12/23Order Info: [id number] - CBC Performed By: #### L 503.6150, L100.0500 ####[facility] [address] [place], [address] HCT Normal 40-54 [facility] Comment on above: Order Comment: Order Date: 06/16/23Order Info: [id number] - CBC Result Comment: ADDE D TO 05/10/24 LAB DRAW Performed By: #### L 100.0500, L500.2500 ####[facility] [address] [place], [address] HGB Normal 13.0-16.5 [facility] Comment on above: Order Comment: Order Date: 06/16/23Order Info: [id number] - CBC Result Comment: ADDE D TO 05/10/24 LAB DRAW Performed By: #### L 100.0500, L500.2500 ####[facility] [address] [place], [address] MCH Normal 27.0-32.0 [facility] Comment on above: Order Comment: Order Date: 06/16/23Order Info: [id number] - CBC Result Comment: ADDE D TO 05/10/24 LAB DRAW Performed By: #### L 100.0500, L500.2500 ####[facility] [address] [place], [address] MCHC Normal 32-36 [facility] Comment on above: Order Comment: Order Date: 06/16/23Order Info: [id number] - CBC Result Comment: ADDE D TO 05/10/24 LAB DRAW Performed By: #### L 100.0500, L500.2500 ####[facility] [address] [place], [address] MCV Normal 80-94 [facility] Comment on above: Order Comment: Order Date: 06/16/23Order Info: [id number] - CBC Result Comment: ADDE D TO 05/10/24 LAB DRAW Performed By: #### L 100.0500, L500.2500 ####[facility] [address] [place], [address] PLT Normal 150-450 [facility] Comment on above: Order Comment: Order Date: 06/16/23Order Info: [id number] - CBC Result Comment: ADDE D TO 05/10/24 LAB DRAW Performed By: #### L 100.0500, L500.2500 ####[facility] [address] [place], [address] RBC Normal 4.6-6.2 [facility] Comment on above: Order Comment: Order Date: 06/16/23Order Info: [id number] - CBC Result Comment: ADDE D TO 05/10/24 LAB DRAW Performed By: #### L 100.0500, L500.2500 ####[facility] [address] [place], [address] RDW CV Normal 11.6-14.6 [facility] Comment on above: Order Comment: Order Date: 06/16/23Order Info: [id number] - CBC Result Comment: ADDE D TO 05/10/24 LAB DRAW Performed By: #### L 100.0500, L500.2500 ####[facility] [address] [place], [address] RDW SD Normal 35.1-43.9 [facility] Comment on above: Order Comment: Order Date: 06/16/23Order Info: [id number] - CBC Result Comment: ADDE D TO 05/10/24 LAB DRAW Performed By: #### L 100.0500, L500.2500 ####[facility] [address] [place], [address] WBC Normal 4.4-11.0 [facility] Comment on above: Order Comment: Order Date: 06/16/23Order Info: [id number] - CBC Result Comment: ADDE D TO 05/10/24 LAB DRAW Performed By: #### L 100.0500, L500.2500 ####[facility] [address] [place], [address] Calculated very low density lipoprotein (VLDL) cholesterol measurementOrdered By: Padmini Carrasco on 05-10-2024 Calculated very low density lipoprotein (VLDL) cholesterol measurement 31 mg/dL [facility] VLDL Cholesterol 31 mg/dL [facility] Carbon dioxide, total [Moles /volume] in Central venous bloodOrdered By: Padmini Carrasco on 05-10-2024 CO2 [Moles/Vol] 22.7 mmol/L 21.0-32.0 [facility] Chloride assayOrdered By: Rambo jacquialeeher Carrasco on 05-10-2024 Chloride [Moles/Vol] 104 mmol/L 98-108 [facility] Comprehensive Metabolic Prof ilon 05-10-2024 Albumin [Mass/Vol] 3.9 g/dL Normal 3.4-4.8 [facility] Comment on above: Order Comment: Order Date: 10/12/23Order Info: [id number] - CMPOrder Info: [id number] - LIPIDOrder Info: [id number] - TSHOrder Info: [id number] - PSAOrder Info: [id number] - FE Performed By: #### L 500.4100, L501.9520, L500.4050 ####[facility] [address] [place], [address] Albumin/Globulin [Mass ratio] 1.4 {ratio} Normal 0.9-2.4 [facility] Comment on above: Order Comment: Order Date: 10/12/23Order Info: [id number] - CMPOrder Info: [id number] - LIPIDOrder Info: [id number] - TSHOrder Info: [id number] - PSAOrder Info: [id number] - FE Performed By: #### L 500.4100, L501.9520, L500.4050 ####[facility] [address] [place], [address] ALK PHOS 73 U/L Normal 40-129 [facility] Comment on above: Order Comment: Order Date: 10/12/23Order Info: [id number] - CMPOrder Info: [id number] - LIPIDOrder Info: [id number] - TSHOrder Info: [id number] - PSAOrder Info: [id number] - FE Performed By: #### L 500.4100, L501.9520, L500.4050 ####[facility] [address] [place], [address] ALT [Catalytic activity/Vol] 6 U/L Normal <=46 [facility] Comment on above: Order Comment: Order Date: 10/12/23Order Info: [id number] - CMPOrder Info: [id number] - LIPIDOrder Info: [id number] - TSHOrder Info: [id number] - PSAOrder Info: [id number] - FE Performed By: #### L 500.4100, L501.9520, L500.4050 ####[facility] [address] [place], [address] AST [Catalytic activity/Vol] 16 U/L Normal <=37 [facility] Comment on above: Order Comment: Order Date: 10/12/23Order Info: [id number] - CMPOrder Info: [id number] - LIPIDOrder Info: [id number] - TSHOrder Info: [id number] - PSAOrder Info: 249-4 - FE Performed By: #### L 500.4100, L501.9520, L500.4050 ####[facility] [address] [place], [address] Bilirubin [Mass/Vol] 0.18 mg/dL Normal 0.00-1.30 [facility] Comment on above: Order Comment: Order Date: 10/12/23Order Info: 86-1 - CMPOrder Info: [id number] - LIPIDOrder Info: 6-3 - TSHOrder Info: [id number] - PSAOrder Info: 249-4 - FE Performed By: #### L 500.4100, L501.9520, L500.4050 ####[facility] [address] [place], [address] BUN/CRE 16.8 RATIO Normal 10-20 [facility] Comment on above: Order Comment: Order Date: 10/12/23Order Info: [id number] - CMPOrder Info: [id number] - LIPIDOrder Info: [id number] - TSHOrder Info: [id number] - PSAOrder Info: [id number] - FE Performed By: #### L 500.4100, L501.9520, L500.4050 ####[facility] [address] [place], [address] Calcium [Mass/Vol] 9.0 mg/dL Normal 7.6-11.0 [facility] Comment on above: Order Comment: Order Date: 10/12/23Order Info: [id number] - CMPOrder Info: [id number] - LIPIDOrder Info: [id number] - TSHOrder Info: [id number] - PSAOrder Info: [id number] - FE Performed By: #### L 500.4100, L501.9520, L500.4050 ####[facility] [address] [place], [address] Chloride [Moles/Vol] 104 mmol/L Normal 98-108 [facility] Comment on above: Order Comment: Order Date: 10/12/23Order Info: [id number] - CMPOrder Info: [id number] - LIPIDOrder Info: [id number] - TSHOrder Info: [id number] - PSAOrder Info: 249-4 - FE Performed By: #### L 500.4100, L501.9520, L500.4050 ####[facility] [address] [place], [address] CO2 [Moles/Vol] 22.7 mmol/L Normal 21.0-32.0 [facility] Comment on above: Order Comment: Order Date: 10/12/23Order Info: [id number] - CMPOrder Info: [id number] - LIPIDOrder Info: [id number] - TSHOrder Info: [id number] - PSAOrder Info: [id number] - FE Performed By: #### L 500.4100, L501.9520, L500.4050 ####[facility] [address] [place], [address] Creatinine [Mass/Vol] 1.64 mg/dL High 0.70-1.20 [facility] Comment on above: Order Comment: Order Date: 10/12/23Order Info: [id number] - CMPOrder Info: [id number] - LIPIDOrder Info: [id number] - TSHOrder Info: [id number] - PSAOrder Info: [id number] - FE Performed By: #### L 500.4100, L501.9520, L500.4050 ####[facility] [address] [place], [address] GAP 12 Normal 5-15 [facility] Comment on above: Order Comment: Order Date: 10/12/23Order Info: [id number] - CMPOrder Info: [id number] - LIPIDOrder Info: [id number] - TSHOrder Info: [id number] - PSAOrder Info: [id number] - FE Performed By: #### L 500.4100, L501.9520, L500.4050 ####[facility] [address] [place], [address] GFR/1.73 sq M.predicted among non-blacks MDRD (S/P/Bld) [Vol rate/Area] 44 mL/min/{1.73_m2} Low >60 [facility] Comment on above: Order Comment: Order Date: 10/12/23Order Info: 785-1 - CMPOrder Info: [id number] - LIPIDOrder Info: [id number] - TSHOrder Info: [id number] - PSAOrder Info: [id number] - FE Result Comment: mL/m in/1.73m2 CKD-EPI Creatinine Equation (2020) Performed By: #### L 500.4100, L501.9520, L500.4050 ####[facility] [address] [place], [address] Globulin (S) [Mass/Vol] 2.8 g/dL Normal 2.2-4.2 [facility] Comment on above: Order Comment: Order Date: 10/12/23Order Info: 86-1 - CMPOrder Info: [id number] - LIPIDOrder Info: [id number] - TSHOrder Info: [id number] - PSAOrder Info: [id number] - FE Performed By: #### L 500.4100, L501.9520, L500.4050 ####[facility] [address] [place], [address] Glucose [Mass/Vol] 163 mg/dL High 70-99 [facility] Comment on above: Order Comment: Order Date: 10/12/23Order Info: [id number] - CMPOrder Info: [id number] - LIPIDOrder Info: [id number] - TSHOrder Info: [id number] - PSAOrder Info: [id number] - FE Performed By: #### L 500.4100, L501.9520, L500.4050 ####[facility] [address] [place], [address] Potassium [Moles/Vol] 4.8 mmol/L Normal 3.3-5.1 [facility] Comment on above: Order Comment: Order Date: 10/12/23Order Info: [id number] - CMPOrder Info: [id number] - LIPIDOrder Info: [id number] - TSHOrder Info: [id number] - PSAOrder Info: 249-4 - FE Performed By: #### L 500.4100, L501.9520, L500.4050 ####[facility] [address] [place], [address] Sodium [Moles/Vol] 138 mmol/L Normal 133-145 [facility] Comment on above: Order Comment: Order Date: 10/12/23Order Info: [id number] - CMPOrder Info: [id number] - LIPIDOrder Info: [id number] - TSHOrder Info: [id number] - PSAOrder Info: [id number] - FE Performed By: #### L 500.4100, L501.9520, L500.4050 ####[facility] [address] [place], [address] T PROT 6.7 g/dL Normal 5.9-8.4 [facility] Comment on above: Order Comment: Order Date: 10/12/23Order Info: [id number] - CMPOrder Info: [id number] - LIPIDOrder Info: [id number] - TSHOrder Info: [id number] - PSAOrder Info: [id number] - FE Performed By: #### L 500.4100, L501.9520, L500.4050 ####[facility] [address] [place], [place], [address] Urea nitrogen [Mass/Vol] 28 mg/dL High 4-19 [facility] Comment on above: Order Comment: Order Date: 10/12/23Order Info: [id number] - CMPOrder Info: [id number] - LIPIDOrder Info: [id number] - TSHOrder Info: [id number] - PSAOrder Info: [id number] - FE Performed By: #### L 500.4100, L501.9520, L500.4050 ####[facility] [address] [place], [place], [id number] Erythrocyte distribution wid th (RBC) [Ratio]Ordered By: Padmini Carrasco on 05-10-2024 Erythrocyte distribution width (RBC) [Entitic vol] 45.1 fL High 35.1-43.9 [facility] Erythrocyte distribution wid th ratioOrdered By: Padmini Carrasco on 05-10-2024 Erythrocyte distribution width (RBC) [Ratio] 13.2 % 11.6-14.6 [facility] Erythrocyte distribution wid th standard deviationOrdered By: Padmini Carrasoc on 05-10-2024 Erythrocyte distribution width (RBC) [Ratio] 45.1 fl High 35.1-43.9 [facility] GFR/1.73 sq M.predicted kasie g non-blacks MDRD (S/P/Bld) [Vol rate/Area]Ordered By: Padmini Carrasco on 05-10-2024 Estimated GFR (MDRD) Non-Af Amer 44 Low >60 [facility] Comment on above: mL/min/1.73m2 CKD-EP I Creatinine Equation (2020) Glomerular filtration rate ( GFR) estimation/1.73 sq m using serum, plasma, or whole bOrdered By: Padmini Carrasco on 05-10-2024 GFR/1.73 sq M.predicted among non-blacks MDRD (S/P/Bld) [Vol rate/Area] 44 mL/min/{1.73_m2} Low >60 [facility] Comment on above: mL/min/1.73m2 CKD-EP I Creatinine Equation (2020) Hematocrit Auto (Bld) [Volum e fraction]Ordered By: Padmini Carrasco on 05-10-2024 Hematocrit (Bld) [Volume fraction] 42.5 % 40-54 [facility] Hemoglobin measurementOrdere d By: Padmini Carrasco on 05-10-2024 Hemoglobin (Bld) [Mass/Vol] 13.6 g/dL 13.0-16.5 [facility] Ironon 05-10-2024 Iron [Mass/Vol] 57 ug/dL Low 65-175 [facility] Comment on above: Order Comment: Order Date: 10/12/23Order Info: [id number] - CMPOrder Info: [id number] - LIPIDOrder Info: [id number] - TSHOrder Info: [id number] - PSAOrder Info: [id number] - FE Performed By: #### L 503.6150, L100.0500 ####[facility] [address] [place], [address] Iron (Unsp spec) [Mass/Mass] Ordered By: Padmini Carrasco on 05-10-2024 Iron [Mass/Vol] 57 ug/dL Low 65-175 [facility] Iron measurement (mass/mass) Ordered By: Padmini Carrasco on 05-10-2024 Iron (Unsp spec) [Mass/Mass] 57 ug/dL Low 65-175 [facility] LDL calc ser/plasOrdered By: Padmini Carrasco on 05-10-2024 Cholesterol in LDL [Mass/Vol] 63 mg/dL [facility] Comment on above: Njuelsbhkn=361-769 m g/dL & Higher Dijm=330 mg/dL or greater LDL Cholesterol, Calculated 63 mg/dL [facility] Comment on above: Yxeqigwxic=591-195 m g/dL & Higher Peix=558 mg/dL or greater Laboratory - Chemistry and C hemistry - challengeOrdered By: Padmini Carrasco on 05-10-2024 AST [Catalytic activity/Vol] 16 U/L <38 [facility] Lipid Profileon 05-10-2024 CHOL:HDL 2.86 Normal [facility] Comment on above: Order Comment: Order Date: 10/12/23Order Info: [id number] - CMPOrder Info: [id number] - LIPIDOrder Info: [id number] - TSHOrder Info: [id number] - PSAOrder Info: [id number] Performed By: #### L 500.4100, L501.9520, L500.4050 ####[facility] [address] [place], [address] Cholesterol [Mass/Vol] 144 mg/dL Normal <=200 [facility] Comment on above: Order Comment: Order Date: 10/12/23Order Info: 86-1 - CMPOrder Info: [id number] - LIPIDOrder Info: 6-3 - TSHOrder Info: [id number] - PSAOrder Info: [id number] Result Comment: Chol esterol level, Desirable <200 mg/dLBorderline high cholesterol 200-239 mg/dLHigh cholesterol >=240 mg/dLRecommendations of the NCEP Adult Treatment Panel for thefollowing risk-cutoff thresholds for the [place] [facility]. Performed By: #### L 500.4100, L501.9520, L500.4050 ####[facility] [address] [place], [address] Cholesterol in HDL [Mass/Vol] 50 mg/dL Normal [facility] Comment on above: Order Comment: Order Date: 10/12/23Order Info: 86-1 - CMPOrder Info: [id number] - LIPIDOrder Info: 6-3 - TSHOrder Info: [id number] - PSAOrder Info: [id number] Result Comment: Kaci onal Cholesterol Education Program (NCEP) guidelines:<40 mg/dL: Low HDL-cholesterol (major risk factor for CHD)>= 60 mg/dL: High HDL-cholesterol (negative risk factor forCHD)HDL-cholesterol is affected by a number of factors, e.g.smoking, exercise, hormones, sex and age. Performed By: #### L 500.4100, L501.9520, L500.4050 ####[facility] [address] [place], [address] Cholesterol in LDL [Mass/Vol] 63 mg/dL Normal [facility] Comment on above: Order Comment: Order Date: 10/12/23Order Info: [id number] - CMPOrder Info: [id number] - LIPIDOrder Info: [id number] - TSHOrder Info: [id number] - PSAOrder Info: [id number] Result Comment: Bord sfycth=053-707 mg/dL Higher Qqsu=803 mg/dL or greater Performed By: #### L 500.4100, L501.9520, L500.4050 ####[facility] [address] [place], [address] Cholesterol in VLDL [Mass/Vol] 31 mg/dL Normal 5-40 [facility] Comment on above: Order Comment: Order Date: 10/12/23Order Info: [id number] - CMPOrder Info: [id number] - LIPIDOrder Info: 63 - TSHOrder Info: 7 - PSAOrder Info: [id number] Performed By: #### L 500.4100, L501.9520, L500.4050 ####[facility] [address] [place], [address] Triglyceride [Mass/Vol] 155 mg/dL Normal [facility] Comment on above: Order Comment: Order Date: 10/12/23Order Info: [id number] - CMPOrder Info: [id number] - LIPIDOrder Info: 63 - TSHOrder Info: [id number] - PSAOrder Info: [id number] Result Comment: The drugs N-Acetylcysteine and Metamizole may falselydepress this assay.Normal range: <150 mg/dLBorderline High: 150-199 mg/dLHigh: 200-499 mg/dLVery High: >500 mg/dL Performed By: #### L 500.4100, L501.9520, L500.4050 ####[facility] [address] [place], [address] MCV (mean corpuscular volume ) determinationOrdered By: Padmini Carrasco on 05-10-2024 MCV (RBC) [Entitic vol] 93.8 fL 80-94 [facility] Mean corpuscular hemoglobin (MCH) determinationOrdered By: Padmini Carrasco on 05-10-2024 MCH (RBC) [Entitic mass] 30.0 pg 27.0-32.0 [facility] Mean corpuscular hemoglobin concentration (MCHC) determinationOrdered By: Padmini Carrasco on 05-10-2024 MCHC (RBC) [Mass/Vol] 32.0 g/dL 32-36 [facility] Mean platelet volume determi nationOrdered By: Padmini Carrasco on 05-10-2024 Platelet mean volume (Bld) [Entitic vol] 9.2 fL 6.2-12.0 [facility] PSA, total screeningOrdered By: Padmini Carrasco on 05-10-2024 Prostate Specific Antigen Screen 0.49 ng/mL 0.02-4.00 [facility] Comment on above: This test was perfor med using the [employer] tPSA method. Measured values of a patient sample can vary depending on the testing procedure used. PSA values determined on patient samples by different testing procedures cannot be used interchangeably. If there is a change in PSA assays while monitoring therapy, sequential testing should be performed to confirm baseline values. PSA,Total - Annual Screenon 05-10-2024 PSA,TOT SCREEN 0.49 ng/mL Normal 0.02-4.00 [facility] Comment on above: Order Comment: Order Date: 10/12/23Order Info: [id number] - CMPOrder Info: [id number] - LIPIDOrder Info: [id number] - TSHOrder Info: [...] baseline values. Performed By: #### L 501.9910 ####[facility] [address] [place], [address] PTH intactOrdered By: Horacio Carrasco on 05-10-2024 Parathyroid Hormone (Intact) 74 pg/mL High [facility] PTHINon 05-10-2024 PTH 74 pg/mL High [facility] Comment on above: Performed By: #### L 506.1001, L509.1000, L503.0106 ####[facility] [address] [place], [address] Platelet countOrdered By: Rambo Carrasco on 05-10-2024 Platelets (Bld) [#/Vol] 168 10*3/uL 150-450 [facility] Potassium (Unsp spec) [Mass/ Vol]Ordered By: Padmini Carrasco on 05-10-2024 Potassium [Moles/Vol] 4.8 mmol/L 3.3-5.1 [facility] Potassium measurement (mass/ volume)Ordered By: Padmini Carrasco on 05-10-2024 Potassium (Unsp spec) [Mass/Vol] 4.8 mmol/L 3.3-5.1 [facility] RBC Auto (Bld) [#/Vol]Ordere d By: Padmini Carrasco on 05-10-2024 RBC (Bld) [#/Vol] 4.53 10*6/uL Low 4.6-6.2 [facility] Screening total cholesterol/ high density lipoprotein (HDL) cholesterol ratioOrdered By: Padmini Carrasco on 05-10-2024 Cholesterol.total/Chol esterol in HDL [Mass ratio] 2.86 {ratio} [facility] Serum creatinine measurement (mass/volume)Ordered By: Padmini Carrasco on 05-10-2024 Creatinine [Mass/Vol] 1.64 mg/dL High 0.70-1.20 [facility] Serum globulin measurementOr dered By: Padmini Carrasco on 05-10-2024 Globulin (S) [Mass/Vol] 2.8 g/dL 2.2-4.2 [facility] Serum glucose measurement (m ass/volume)Ordered By: Padmini Carrasco on 05-10-2024 Glucose [Mass/Vol] 163 mg/dL High 70-99 [facility] Serum or plasma alanine perales otransferase (ALT) measurementOrdered By: Padmini Carrasco on 05-10-2024 ALT [Catalytic activity/Vol] 6 U/L <47 [facility] Serum or plasma albumin jamel urement (mass/volume)Ordered By: Padmini Carrasco on 05-10-2024 Albumin [Mass/Vol] 3.9 g/dL 3.4-4.8 [facility] Serum or plasma albumin/glob ulin mass ratioOrdered By: [facility] Carrasco on 05-10-2024 Albumin/Globulin [Mass ratio] 1.4 {ratio} 0.9-2.4 [facility] Serum or plasma alkaline masha sphatase measurementOrdered By: Padmini Carrasco on 05-10-2024 ALP [Catalytic activity/Vol] 73 U/L 40-129 [facility] Serum or plasma calcium jamel urement (mass/volume)Ordered By: Padmini Carrasco on 05-10-2024 Calcium [Mass/Vol] 9.0 mg/dL 7.6-11.0 [facility] Serum or plasma cholesterol in HDL measurement (mass/volume)Ordered By: Padmini Carrasco on 05-10-2024 Cholesterol in HDL [Mass/Vol] 50 mg/dL >40 [facility] Comment on above: National Cholesterol Education Program (NCEP) guidelines:<40 mg/dL: Low HDL-cholesterol (major risk factor for CHD)>= 60 mg/dL: High HDL-cholesterol (negative risk factor for CHD)HDL-cholesterol is affected by a number of factors, e.g. smoking, exercise, hormones, sex and age. Serum or plasma cholesterol measurement (mass/volume)Ordered By: Padmini Carrasco on 05-10-2024 Cholesterol [Mass/Vol] 144 mg/dL <201 [facility] Comment on above: Cholesterol level, D esirable <200 mg/dLBorderline high cholesterol 200-239 mg/dLHigh cholesterol >=240 mg/dLRecommendations of the NCEP Adult Treatment Panel for the following risk-cutoff thresholds for the [place] population. Serum or plasma urea nitroge n measurement (mass/volume)Ordered By: Padmini Carrasco on 05-10-2024 Urea nitrogen [Mass/Vol] 28 mg/dL High 4-19 [facility] Sodium levelOrdered By: Jaz Carrasco on 05-10-2024 Sodium [Moles/Vol] 138 mmol/L 133-145 [facility] TSH DL <= 0.005 mIU/L QnOrde red By: Padmini Carrasco on 05-10-2024 Thyroid Stimulating Hormone (TSH) 3.680 uIU/mL 0.300-4.200 [facility] TSH Qn 3.680 uIU/mL 0.300-4.200 [facility] Thyroid Stim Hormone (TSH)on 05-10-2024 TSH 3.680 uIU/mL Normal 0.300-4.200 [facility] Comment on above: Order Comment: Order Date: 10/12/23Order Info: [id number] - CMPOrder Info: [id number] - LIPIDOrder Info: [id number] - TSHOrder Info: [id number] - PSAOrder Info: [id number] - FE Performed By: #### L 500.4100, L501.9520, L500.4050 ####[facility] [address] [place], [address] Total proteinOrdered By: Agueda Carrasco on 05-10-2024 Protein [Mass/Vol] 6.7 g/dL 5.9-8.4 [facility] Triglycerides measurementOrd ered By: Padmini Carrasco on 05-10-2024 Triglyceride [Mass/Vol] 155 mg/dL <199 [facility] Comment on above: The drugs N-Acetylcy steine and Metamizole may falsely depress this assay. Normal range: <150 mg/dLBorderline High: 150-199 mg/dLHigh: 200-499 mg/dLVery High: >500 mg/dL Vitamin B12on 05-10-2024 Cobalamin (Vitamin B12) [Mass/Vol] 355 pg/mL Normal 180-914 [facility] Comment on above: Order Comment: Order Date: 10/12/23Order Info: [id number] - CMPOrder Info: [id number] - LIPIDOrder Info: [id number] - TSHOrder Info: [id number] - PSAOrder Info: [id number] Performed By: #### L 506.1001, L509.1000, L503.0106 ####[facility] [address] [place], [place], [id number] Vitamin B12 ser/plasOrdered By: Padmini Carrasco on 05-10-2024 Cobalamin (Vitamin B12) [Mass/Vol] 355 pg/mL 180-914 [facility] Vitamin D, 25-hydroxyOrdered By: Padmini Carrasco on 05-10-2024 Vitamin D 25-Hydroxy 23.1 ng/mL Low 30-100 [facility] Comment on above: Vitamin D StatusDefi ciency: <20 ng/mL (50nmol/L)Insufficiency: 20-30 ng/mL (50-75 nmol/L)Sufficiency: 30-100 ng/mL (75-250 nmol/L)Toxicity: >100 ng/mL (>250 nmol/L) Vitamin D,25 Hydroxyon 05-10 Vitamin D 25-OH 23.1 ng/mL Low 30-100 [facility] Comment on above: Order Comment: Order Date: 10/12/23Order Info: [id number] - CMPOrder Info: [id number] - LIPIDOrder Info: [id number] - TSHOrder Info: [id number] - PSAOrder Info: [id number] - Result Comment: Tory min D StatusDeficiency: <20 ng/mL (50nmol/L)Insufficiency: 20-30 ng/mL (50-75 nmol/L)Sufficiency: 30-100 ng/mL (75-250 nmol/L)Toxicity: >100 ng/mL (>250 nmol/L) Performed By: #### L 506.1001, L509.1000, L503.0106 ####[facility] [address] [place], [address] White blood cell (WBC) count Ordered By: Padmini Carrasco on 05-10-2024 WBC (Bld) [#/Vol] 6.9 10*3/uL 4.4-11.0 [facility] Pulmonary Visit Reporton Pulmonary Visit Report Normal [facility] Low Dose CT Lung Screeningon 02-21-[address] Lung Screening Normal [facility] Surgery Visit Reporton 02-01 Surgery Visit Report Normal [facility] Discharge Instructionon 01-07 Discharge Instruction Normal [facility] MR/POSTOP.ANEon 01-18-2024 MR/POSTOP.ANE Normal [facility] MR/[id number] 01-18-2024 MR/POSTOPAN2 Normal [facility] Operative Reporton Operative Report Normal [facility] Surgery Specimen Level IIon 01-18-2024 Surgery Specimen Level II Normal [facility] Comment on above: Performed By: #### P SUII ####[facility] [address] [place], [address] Basophil percentageOrdered B y: Farheen Alexander on 02-28-2023 Bilirubin [Mass/Vol] 0.20 mg/dL 0.20-1.00 [facility] Comment on above: For patients on eltr ombopag therapy, use of Dimension [place] TBIL is not recommended. Cholesterol [Mass/Vol] 119 mg/dL <200 [facility] Comment on above: <200 mg/dL Desirable 200-240 mg/dL Borderline >240 mg/dL High Risk Protein [Mass/Vol] 7.4 g/dL 6.4-8.2 [facility] Triglyceride [Mass/Vol] 100 mg/dL <199 [facility] Comment on above: The drugs N-Acetylcy steine and Metamizole may falsely depress this assay.Serum Triglycerides Reference Interval Normal <150 mg/dL Borderline high 150 - 199 mg/dL High 200 - 499 mg/dL Very High > or = 500 mg/dL Direct bilirubinOrdered By: Farheen Alexander on 02-28-2023 Bilirubin.direct [Mass/Vol] 0.11 mg/dL 0.00-0.30 [facility] High density lipoprotein (HD L) measurementOrdered By: Farheen Alexander on 02-28-2023 Cholesterol in HDL (Body fld) [Mass/Vol] 49 mg/dL >40 [facility] Comment on above: The drugs N-Acetylcy steine and Metamizole may falsely depress this assay. Reference Range HDL <40 mg/dL Low HDL Cholesterol HDL >or= 60 mg/dL High HDL Cholesterol Laboratory - Chemistry and C hemistry - challengeOrdered By: Farheen Alexander on 02-28-2023 ALP [Catalytic activity/Vol] 84 U/L 45-117 [facility] ALT [Catalytic activity/Vol] 12 U/L 16-61 [facility] Globulin (S) [Mass/Vol] 4.0 g/dL 2.2-4.2 [facility] Low density lipoprotein (LDL ) cholesterol measurementOrdered By: Farheen Alexander on 02-28-2023 Cholesterol in LDL (Body fld) [Moles/Vol] 50 mg/dL 0-130 [facility] Thin prep Papanicolaou smear with manual screeningOrdered By: Farheen Alexander on 02-28-2023 Thin prep Papanicolaou smear with manual screening 3.4 g/dL 3.2-5.0 [facility] Thin prep Papanicolaou smear with manual screening 13 U/L 15-37 [facility] Very low density lipoprotein (VLDL) cholesterol measurementOrdered By: Farheen Alexander on 02-28-2023 Cholesterol in VLDL Calc [Moles/Vol] 20 mg/dL 5-40 [facility] Basophil percentageOrdered B y: Ezekiel Carrasco on 12-14-2022 Chloride [Moles/Vol] 104 mmol/L 98-107 [facility] Glucose [Mass/Vol] 125 mg/dL 74-106 [facility] Comment on above: Fasting Glucose resu lt from 100 to 125 mg/dL suggests IMPAIRED HOMEOSTASIS per A.D.A. criteria. Potassium [Moles/Vol] 4.6 mmol/L 3.5-5.1 [facility] Sodium [Moles/Vol] 137 mmol/L 136-145 [facility] WBC (Bld) [#/Vol] 7.9 10*3/uL 4.4-11.0 [facility] Blood erythrocytes count (nu mber/volume)Ordered By: Ezekiel Carrasco on 12-14-2022 RBC (Bld) [#/Vol] 4.24 10*6/uL 4.6-6.2 [facility] Blood hemoglobin measurement (mass/volume)Ordered By: Ezekiel Carrasco on 12-14-2022 Hemoglobin (Bld) [Mass/Vol] 11.4 g/dL 13.0-16.5 [facility] Blood platelet mean volumeOr dered By: Ezekiel Carrasco on 12-14-2022 Platelet mean volume (Bld) [Entitic vol] 9.0 fL 6.2-12.0 [facility] Determination of erythrocyte mean corpuscular volume (MCV)Ordered By: Ezekiel Carrasco on 12-14-2022 MCV (RBC) [Entitic vol] 90.1 fL 80-94 [facility] Hematocrit Auto (Bld) [Volum e fraction]Ordered By: Ezekiel Carrasco on 12-14-2022 Hematocrit (Bld) [Volume fraction] 38.2 % 40-54 [facility] Iron measurement (mass/mass) Ordered By: Ezekiel Carrasco on 12-14-2022 Iron (Unsp spec) [Mass/Mass] 31 ug/dL 65-175 [facility] Laboratory - Chemistry and C hemistry - challengeOrdered By: Ezekiel Carrasco on 12-14-2022 Natriuretic peptide B (Bld) [Mass/Vol] 71.3 pg/mL 0-100 [facility] CO2 [Moles/Vol] 29.0 mmol/L 21.0-32.0 [facility] Urea nitrogen/Creatinine [Mass ratio] 17.7 mg/mg 10-20 [facility] - Hematology and Cell countsOrdered By: Ezekiel Carrasco on 12-14-2022 Erythrocyte distribution width (RBC) [Entitic vol] 47.3 fL 35.1-43.9 [facility] Erythrocyte distribution width (RBC) [Ratio] 14.3 % 11.6-14.6 [facility] MCH (RBC) [Entitic mass] 26.9 pg 27.0-32.0 [facility] MCHC Auto (RBC) [Mass/Vol]Or dered By: Ezekiel Carrasco on 12-14-2022 MCHC (RBC) [Mass/Vol] 29.8 g/dL 32-36 [facility] No Panel InformationOrdered By: Ezekiel Carrasco on 12-14-2022 Estimated GFR (MDRD) Amer 53 mL/min >60 [facility] Comment on above: GFR Calc Estimated GFR (MDRD) Non-Af Amer 44 mL/min >60 [facility] Comment on above: Non- GFR Calc Parathyroid Hormone (Intact) 83.4 pg/mL 18.4-80.1 [facility] Vitamin D 25-Hydroxy 28.8 ng/mL [facility] Comment on above: Vitamin D 25(OH) Sta tus Range Deficiency <20 ng/mL (50nmol/L) Insufficiency 20 - 30 ng/mL (50 - 75 nmol/L) Sufficiency 30 - 100 ng/mL (75 - 250 nmol/L) Toxicity >100 ng/mL (>250 nmol/L) Platelets bldOrdered By: Agueda Carrasco on 12-14-2022 Platelets (Bld) [#/Vol] 278 10*3/uL 150-450 [facility] Serum or plasma calcium jamel urement (mass/volume)Ordered By: Ezekiel Carrasco on 12-14-2022 Calcium [Mass/Vol] 8.9 mg/dL 8.5-10.1 [facility] Serum or plasma creatinine m easurement (mass/volume)Ordered By: Ezekiel Carrasco on 12-14-2022 Creatinine [Mass/Vol] 1.64 mg/dL 0.70-1.30 [facility] Comment on above: The validity of the calculated GFR & GFRAA in patients over 70 years has not been determined. Clinical correlation is essential. Serum or plasma urea nitroge n measurement (mass/volume)Ordered By: Ezekiel Carrasco on 12-14-2022 Urea nitrogen [Mass/Vol] 29 mg/dL 7-18 [facility] Thin prep Papanicolaou smear with manual screeningOrdered By: Ezekiel Carrasco on 12-14-2022 Thin prep Papanicolaou smear with manual screening 4 5-15 [facility] Basophil percentageOrdered B y: Ezekiel Carrasco on 08-16-2022 Bilirubin [Mass/Vol] 0.30 mg/dL 0.20-1.00 [facility] Comment on above: For patients on eltr ombopag therapy, use of Dimension [place] TBIL is not recommended. Chloride [Moles/Vol] 106 mmol/L 98-107 [facility] Glucose [Mass/Vol] 136 mg/dL 74-106 [facility] Comment on above: Fasting Glucose resu lt greater than or equal to 126 mg/dL suggests DIABETES MELLITUS per A.D.A. criteria. Potassium [Moles/Vol] 4.0 mmol/L 3.5-5.1 [facility] Protein [Mass/Vol] 7.0 g/dL 6.4-8.2 [facility] Sodium [Moles/Vol] 138 mmol/L 136-145 [facility] WBC (Bld) [#/Vol] 6.0 10*3/uL 4.4-11.0 [facility] Blood erythrocytes count (nu mber/volume)Ordered By: Ezekiel Carrasco on 08-16-2022 RBC (Bld) [#/Vol] 4.10 10*6/uL 4.6-6.2 [facility] Blood hemoglobin measurement (mass/volume)Ordered By: Ezekiel Carrasco on 08-16-2022 Hemoglobin (Bld) [Mass/Vol] 11.7 g/dL 13.0-16.5 [facility] Blood platelet mean volumeOr dered By: Ezekiel Carrasco on 08-16-2022 Platelet mean volume (Bld) [Entitic vol] 8.9 fL 6.2-12.0 [facility] Determination of erythrocyte mean corpuscular volume (MCV)Ordered By: Ezekiel Carrasco on 08-16-2022 MCV (RBC) [Entitic vol] 91.7 fL 80-94 [facility] Hematocrit Auto (Bld) [Volum e fraction]Ordered By: Ezekiel Carrasco on 08-16-2022 Hematocrit (Bld) [Volume fraction] 37.6 % 40-54 [facility] Hemoglobin in reticulocytes (mass per reticulocyte)Ordered By: Ezekiel Carrasco on 08-16-2022 Hemoglobin (Reticulocytes) [Entitic mass] 31.1 pg 30-35 [facility] Iron measurement (mass/mass) Ordered By: Ezekiel Carrasco on 08-16-2022 Iron (Unsp spec) [Mass/Mass] 45 ug/dL 65-175 [facility] - Chemistry and C hemistry - challengeOrdered By: Ezekiel Carrasco on 08-16-2022 Natriuretic peptide B (Bld) [Mass/Vol] 196.1 pg/mL 0-100 [facility] ALP [Catalytic activity/Vol] 68 U/L 45-117 [facility] ALT [Catalytic activity/Vol] 11 U/L 16-61 [facility] CO2 [Moles/Vol] 29.0 mmol/L 21.0-32.0 [facility] Cobalamin (Vitamin B12) [Mass/Vol] 188 pg/mL 211-911 [facility] Globulin (S) [Mass/Vol] 3.7 g/dL 2.2-4.2 [facility] Urea nitrogen/Creatinine [Mass ratio] 12.7 mg/mg 10-20 [facility] - Hematology and Cell countsOrdered By: Ezekiel Carrasco on 08-16-2022 Erythrocyte distribution width (RBC) [Entitic vol] 47.7 fL 35.1-43.9 [facility] Erythrocyte distribution width (RBC) [Ratio] 14.2 % 11.6-14.6 [facility] MCH (RBC) [Entitic mass] 28.5 pg 27.0-32.0 [facility] MCHC Auto (RBC) [Mass/Vol]Or dered By: Ezekiel Carrasco on 08-16-2022 MCHC (RBC) [Mass/Vol] 31.1 g/dL 32-36 [facility] No Panel InformationOrdered By: Ezekiel Carrasco on 08-16-2022 Estimated GFR (MDRD) Amer 53 mL/min >60 [facility] Comment on above: GFR Calc Estimated GFR (MDRD) Non-Af Amer 43 mL/min >60 [facility] Comment on above: Non- GFR Calc Immature Reticulocyte Fraction 8.60 % 3.00-15.90 [facility] Reticulocyte Count 0.92 % 0.5-1.5 [facility] Thyroid Stimulating Hormone (TSH) 1.68 uIU/mL 0.358-3.74 [facility] Total Iron Binding Capacity 323 ug/dL 250-450 [facility] Platelets bldOrdered By: Agueda Carrasco on 08-16-2022 Platelets (Bld) [#/Vol] 181 10*3/uL 150-450 [facility] Serum or plasma albumin jamel urement (mass/volume)Ordered By: Ezekiel Carrasco on 08-16-2022 Albumin [Mass/Vol] 3.3 g/dL 3.2-5.0 [facility] Serum or plasma albumin/glob ulin mass ratioOrdered By: Ezekiel Carrasco on 08-16-2022 Albumin/Globulin [Mass ratio] 0.9 {ratio} 0.9-2.4 [facility] Serum or plasma calcium jamel urement (mass/volume)Ordered By: Ezekiel Carrasco on 08-16-2022 Calcium [Mass/Vol] 8.6 mg/dL 8.5-10.1 [facility] Serum or plasma creatinine m easurement (mass/volume)Ordered By: Ezekiel Carrasco on 08-16-2022 Creatinine [Mass/Vol] 1.66 mg/dL 0.70-1.30 [facility] Comment on above: The validity of the calculated GFR & GFRAA in patients over 70 years has not been determined. Clinical correlation is essential. Serum or plasma ferritin ahmet surement (mass/volume)Ordered By: Ezekiel Carrasco on 08-16-2022 Ferritin [Mass/Vol] 49 ng/mL 26-388 [facility] Serum or plasma urea nitroge n measurement (mass/volume)Ordered By: Ezekiel Carrasco on 08-16-2022 Urea nitrogen [Mass/Vol] 21 mg/dL 7-18 [facility] Thin prep Papanicolaou smear with manual screeningOrdered By: Ezekiel Carrasco on 08-16-2022 Thin prep Papanicolaou smear with manual screening 11 U/L 15-37 [facility] Thin prep Papanicolaou smear with manual screening 3 5-15 [facility] Basophil percentageOrdered B y: Isela Kwok on 05-17-2022 Chloride [Moles/Vol] 107 mmol/L 98-107 [facility] Glucose [Mass/Vol] 99 mg/dL 74-106 [facility] Potassium [Moles/Vol] 4.3 mmol/L 3.5-5.1 [facility] Sodium [Moles/Vol] 136 mmol/L 136-145 [facility] Laboratory - Chemistry and C hemistry - challengeOrdered By: Isela Kwok on 05-17-2022 CO2 [Moles/Vol] 27.0 mmol/L 21.0-32.0 [facility] Urea nitrogen/Creatinine [Mass ratio] 16.3 mg/mg 10-20 [facility] No Panel InformationOrdered By: Isela Kwok on 05-17-2022 Estimated GFR (MDRD) Amer 53 mL/min >60 [facility] Comment on above: GFR Calc Estimated GFR (MDRD) Non-Af Amer 44 mL/min >60 [facility] Comment on above: Non- GFR Calc Serum or plasma calcium jamel urement (mass/volume)Ordered By: Isela Kwok on 05-17-2022 Calcium [Mass/Vol] 8.9 mg/dL 8.5-10.1 [facility] Serum or plasma creatinine m easurement (mass/volume)Ordered By: Isela Kwok on 05-17-2022 Creatinine [Mass/Vol] 1.66 mg/dL 0.70-1.30 [facility] Comment on above: The validity of the calculated GFR & GFRAA in patients over 70 years has not been determined. Clinical correlation is essential. Serum or plasma urea nitroge n measurement (mass/volume)Ordered By: Isela Kwok on 05-17-2022 Urea nitrogen [Mass/Vol] 27 mg/dL 7-18 [facility] Thin prep Papanicolaou smear with manual screeningOrdered By: Isela Kwok on 05-17-2022 Thin prep Papanicolaou smear with manual screening 2 5-15 [facility] Basophil percentageOrdered B y: Tc Subramanian on 04-02-2022 Chloride [Moles/Vol] 97 mmol/L 98-107 [facility] Glucose [Mass/Vol] 206 mg/dL 74-106 [facility] Comment on above: Glucose result great er than or equal to 200 mg/dLsuggests DIABETES MELLITUS per A.D.A. criteria. Potassium [Moles/Vol] 4.2 mmol/L 3.5-5.1 [facility] Sodium [Moles/Vol] 135 mmol/L 136-145 [facility] Laboratory - Chemistry and C hemistry - challengeOrdered By: Tc Subramanian on 04-02-2022 CO2 [Moles/Vol] 29.0 mmol/L 21.0-32.0 [facility] Urea nitrogen/Creatinine [Mass ratio] 22.0 mg/mg 10-20 [facility] No Panel InformationOrdered By: Tc Subramanian on 04-02-2022 Estimated GFR (MDRD) Amer 47 mL/min >60 [facility] Comment on above: GFR Calc Estimated GFR (MDRD) Non-Af Amer 39 mL/min >60 [facility] Comment on above: Non- GFR Calc Serum or plasma calcium jamel urement (mass/volume)Ordered By: Tc Subramanian on 04-02-2022 Calcium [Mass/Vol] 8.9 mg/dL 8.5-10.1 [facility] Serum or plasma creatinine m easurement (mass/volume)Ordered By: Tc Subramanian on 04-02-2022 Creatinine [Mass/Vol] 1.82 mg/dL 0.70-1.30 [facility] Comment on above: The validity of the calculated GFR & GFRAA in patients over 70 years has not been determined. Clinical correlation is essential. Serum or plasma urea nitroge n measurement (mass/volume)Ordered By: Tc Subramanian on 04-02-2022 Urea nitrogen [Mass/Vol] 40 mg/dL 7-18 [facility] Thin prep Papanicolaou smear with manual screeningOrdered By: Tc Subramanian on 04-02-2022 Thin prep Papanicolaou smear with manual screening 9 5-15 [facility] Basophil percentageOrdered B y: Tc Subramanian on 03-29-2022 Chloride [Moles/Vol] 98 mmol/L 98-107 [facility] Glucose [Mass/Vol] 101 mg/dL 74-106 [facility] Comment on above: Fasting Glucose resu lt from 100 to 125 mg/dL suggests IMPAIRED HOMEOSTASIS per A.D.A. criteria. Potassium [Moles/Vol] 5.3 mmol/L 3.5-5.1 [facility] Sodium [Moles/Vol] 135 mmol/L 136-145 [facility] Laboratory - Chemistry and C hemistry - challengeOrdered By: Tc Subramanian on 03-29-2022 CO2 [Moles/Vol] 32.0 mmol/L 21.0-32.0 [facility] Urea nitrogen/Creatinine [Mass ratio] 19.3 mg/mg 10-20 [facility] No Panel InformationOrdered By: Tc Subramanian on 03-29-2022 Estimated GFR (MDRD) Amer 30 mL/min >60 [facility] Comment on above: GFR Calc Estimated GFR (MDRD) Non-Af Amer 25 mL/min >60 [facility] Comment on above: Non- GFR Calc Serum or plasma calcium jamel urement (mass/volume)Ordered By: Tc Subramanian on 03-29-2022 Calcium [Mass/Vol] 8.7 mg/dL 8.5-10.1 [facility] Serum or plasma creatinine m easurement (mass/volume)Ordered By: Tc Subramanian on 03-29-2022 Creatinine [Mass/Vol] 2.69 mg/dL 0.70-1.30 [facility] Comment on above: The validity of the calculated GFR & GFRAA in patients over 70 years has not been determined. Clinical correlation is essential. Serum or plasma urea nitroge n measurement (mass/volume)Ordered By: Tc Subramanian on 03-29-2022 Urea nitrogen [Mass/Vol] 52 mg/dL 7-18 [facility] Thin prep Papanicolaou smear with manual screeningOrdered By: Tc Subramanian on 03-29-2022 Thin prep Papanicolaou smear with manual screening 5 5-15 [facility] Absolute lymphocyte countOrd ered By: Dr. Carrasco on 03-18-2022 Lymphocytes Auto (Unsp spec) [#/Vol] 1.42 10*3/uL 0.83-4.51 [facility] Basophil percentageOrdered B y: Dr. Carrasco on 03-18-2022 Basophils/100 WBC (Bld) 0.0 % 0-1 [facility] Bilirubin [Mass/Vol] 0.30 mg/dL 0.20-1.00 [facility] Comment on above: For patients on eltr ombopag therapy, use of Dimension [place] TBIL is not recommended. Chloride [Moles/Vol] 98 mmol/L 98-107 [facility] Eosinophils/100 WBC (Bld) 0.0 % 0-5 [facility] Glucose [Mass/Vol] 333 mg/dL 74-106 [facility] Comment on above: Glucose result great er than or equal to 200 mg/dLsuggests DIABETES MELLITUS per A.D.A. criteria. Neutrophils (Bld) [#/Vol] 4.8 10*3/uL 2.0-7.7 [facility] Neutrophils/100 WBC (Bld) 72.7 % 47-70 [facility] Potassium [Moles/Vol] 3.7 mmol/L 3.5-5.1 [facility] Protein [Mass/Vol] 6.3 g/dL 6.4-8.2 [facility] Sodium [Moles/Vol] 140 mmol/L 136-145 [facility] WBC (Bld) [#/Vol] 6.6 10*3/uL 4.4-11.0 [facility] Blood erythrocytes count (nu mber/volume)Ordered By: Dr. Carrasco on 03-18-2022 RBC (Bld) [#/Vol] 3.19 10*6/uL 4.6-6.2 [facility] Blood hemoglobin measurement (mass/volume)Ordered By: Dr. Carrasco on 03-18-2022 Hemoglobin (Bld) [Mass/Vol] 9.1 g/dL 13.0-16.5 [facility] Blood lymphocytes/100 leukoc ytesOrdered By: Dr. Carrasco on 03-18-2022 Lymphocytes/100 WBC (Bld) 21.5 % 19-41 [facility] Blood monocytes/100 leukocyt esOrdered By: Dr. Carrasco on 03-18-2022 Monocytes/100 WBC (Bld) 5.0 % 0-10 [facility] Blood platelet mean volumeOr dered By: Dr. Carrasco on 03-18-2022 Platelet mean volume (Bld) [Entitic vol] 10.0 fL 6.2-12.0 [facility] Determination of erythrocyte mean corpuscular volume (MCV)Ordered By: Dr. Carrasco on 03-18-2022 MCV (RBC) [Entitic vol] 97.8 fL 80-94 [facility] Hematocrit Auto (Bld) [Volum e fraction]Ordered By: Dr. Carrasco on 03-18-2022 Hematocrit (Bld) [Volume fraction] 31.2 % 40-54 [facility] Laboratory - Chemistry and C hemistry - challengeOrdered By: Dr. Carrasco on 03-18-2022 ALP [Catalytic activity/Vol] 114 U/L 45-117 [facility] ALT [Catalytic activity/Vol] 39 U/L 16-61 [facility] CO2 [Moles/Vol] 33.0 mmol/L 21.0-32.0 [facility] Globulin (S) [Mass/Vol] 3.6 g/dL 2.2-4.2 [facility] Natriuretic peptide B (Bld) [Mass/Vol] 2375.1 pg/mL 0-100 [facility] Urea nitrogen/Creatinine [Mass ratio] 30.7 mg/mg 10-20 [facility] Laboratory - Hematology and Cell countsOrdered By: Dr. Carrasco on 03-18-2022 Erythrocyte distribution width (RBC) [Entitic vol] 53.3 fL 35.1-43.9 [facility] Erythrocyte distribution width (RBC) [Ratio] 14.6 % 11.6-14.6 [facility] Immature granulocytes/100 WBC (Bld) 0.800 % 0.0-0.9 [facility] Comment on above: IG% - Immature Granu locytes (promyelocytes, myelocytes and metamyelocytes) > 1% indicates that a LEFT SHIFT is Present. MCH (RBC) [Entitic mass] 28.5 pg 27.0-32.0 [facility] Nucleated RBC/100 WBC (Bld) [Ratio] 0 % 0-5 [facility] MCHC Auto (RBC) [Mass/Vol]Or dered By: Dr. Carrasco on 03-18-2022 MCHC (RBC) [Mass/Vol] 29.2 g/dL 32-36 [facility] No Panel InformationOrdered By: Dr. Carrasco on 03-18-2022 Estimated GFR (MDRD) Amer 58 mL/min >60 [facility] Comment on above: GFR Calc Estimated GFR (MDRD) Non-Af Amer 48 mL/min >60 [facility] Comment on above: Non- GFR Calc Platelets bldOrdered By: Dr. Carrasco on 03-18-2022 Platelets (Bld) [#/Vol] 131 10*3/uL 150-450 [facility] Serum or plasma albumin jamel urement (mass/volume)Ordered By: Dr. Carrasco on 03-18-2022 Albumin [Mass/Vol] 2.7 g/dL 3.2-5.0 [facility] Serum or plasma albumin/glob ulin mass ratioOrdered By: Dr. Carrasco on 03-18-2022 Albumin/Globulin [Mass ratio] 0.8 {ratio} 0.9-2.4 [facility] Serum or plasma calcium jamel urement (mass/volume)Ordered By: Dr. Carrasco on 03-18-2022 Calcium [Mass/Vol] 8.2 mg/dL 8.5-10.1 [facility] Serum or plasma creatinine m easurement (mass/volume)Ordered By: Dr. Carrasco on 03-18-2022 Creatinine [Mass/Vol] 1.53 mg/dL 0.70-1.30 [facility] Comment on above: The validity of the calculated GFR & GFRAA in patients over 70 years has not been determined. Clinical correlation is essential. Serum or plasma urea nitroge n measurement (mass/volume)Ordered By: Dr. Carrasco on 03-18-2022 Urea nitrogen [Mass/Vol] 47 mg/dL 7-18 [facility] Thin prep Papanicolaou smear with manual screeningOrdered By: Dr. Carrasco on 03-18-2022 Thin prep Papanicolaou smear with manual screening 22 U/L 15-37 [facility] Thin prep Papanicolaou smear with manual screening 9 5-15 [facility] Absolute lymphocyte countOrd ered By: Kasey Arenas on 03-10-2022 Lymphocytes Auto (Unsp spec) [#/Vol] 1.66 10*3/uL 0.83-4.51 [facility] Basophil percentageOrdered B y: Kasey Arenas on 03-10-2022 Basophils/100 WBC (Bld) 0.0 % 0-1 [facility] Bilirubin [Mass/Vol] 0.50 mg/dL 0.20-1.00 [facility] Comment on above: For patients on eltr ombopag therapy, use of Dimension [place] TBIL is not recommended. Chloride [Moles/Vol] 102 mmol/L 98-107 [facility] Eosinophils/100 WBC (Bld) 0.3 % 0-5 [facility] Glucose [Mass/Vol] 133 mg/dL 74-106 [facility] Comment on above: Fasting Glucose resu lt greater than or equal to 126 mg/dL suggests DIABETES MELLITUS per A.D.A. criteria. Neutrophils (Bld) [#/Vol] 4.1 10*3/uL 2.0-7.7 [facility] Neutrophils/100 WBC (Bld) 65.1 % 47-70 [facility] Potassium [Moles/Vol] 4.5 mmol/L 3.5-5.1 [facility] Protein [Mass/Vol] 6.2 g/dL 6.4-8.2 [facility] Sodium [Moles/Vol] 141 mmol/L 136-145 [facility] WBC (Bld) [#/Vol] 6.3 10*3/uL 4.4-11.0 [facility] Blood erythrocytes count (nu mber/volume)Ordered By: Kasey Arenas on 03-10-2022 RBC (Bld) [#/Vol] 3.24 10*6/uL 4.6-6.2 [facility] Blood hemoglobin measurement (mass/volume)Ordered By: Kasey Arenas on 03-10-2022 Hemoglobin (Bld) [Mass/Vol] 9.3 g/dL 13.0-16.5 [facility] Blood lymphocytes/100 leukoc ytesOrdered By: Kasey Arenas on 03-10-2022 Lymphocytes/100 WBC (Bld) 26.3 % 19-41 [facility] Blood monocytes/100 leukocyt esOrdered By: Kasey Arenas on 03-10-2022 Monocytes/100 WBC (Bld) 7.8 % 0-10 [facility] Blood platelet mean volumeOr dered By: Kasey Arenas on 03-10-2022 Platelet mean volume (Bld) [Entitic vol] 9.9 fL 6.2-12.0 [facility] Determination of erythrocyte mean corpuscular volume (MCV)Ordered By: Kasey Arenas on 03-10-2022 MCV (RBC) [Entitic vol] 99.1 fL 80-94 [facility] Hematocrit Auto (Bld) [Volum e fraction]Ordered By: Kasey Arenas on 03-10-2022 Hematocrit (Bld) [Volume fraction] 32.1 % 40-54 [facility] Laboratory - Chemistry and C hemistry - challengeOrdered By: Kasey Arenas on 03-10-2022 ALP [Catalytic activity/Vol] 144 U/L 45-117 [facility] ALT [Catalytic activity/Vol] 44 U/L 16-61 [facility] CO2 [Moles/Vol] 33.0 mmol/L 21.0-32.0 [facility] Globulin (S) [Mass/Vol] 3.4 g/dL 2.2-4.2 [facility] Urea nitrogen/Creatinine [Mass ratio] 31.5 mg/mg 10-20 [facility] Laboratory - Hematology and Cell countsOrdered By: Kasey Arenas on 03-10-2022 Erythrocyte distribution width (RBC) [Entitic vol] 56.9 fL 35.1-43.9 [facility] Erythrocyte distribution width (RBC) [Ratio] 15.4 % 11.6-14.6 [facility] Immature granulocytes/100 WBC (Bld) 0.500 % 0.0-0.9 [facility] Comment on above: IG% - Immature Granu locytes (promyelocytes, myelocytes and metamyelocytes) > 1% indicates that a LEFT SHIFT is Present. MCH (RBC) [Entitic mass] 28.7 pg 27.0-32.0 [facility] Nucleated RBC/100 WBC (Bld) [Ratio] 0 % 0-5 [facility] MCHC Auto (RBC) [Mass/Vol]Or dered By: Kasey Arenas on 03-10-2022 MCHC (RBC) [Mass/Vol] 29.0 g/dL 32-36 [facility] No Panel InformationOrdered By: Kasey Arenas on 03-10-2022 Estimated GFR (MDRD) Amer 61 mL/min >60 [facility] Comment on above: GFR Calc Estimated GFR (MDRD) Non-Af Amer 50 mL/min >60 [facility] Comment on above: Non- GFR Calc Platelets bldOrdered By: Shell Arenas on 03-10-2022 Platelets (Bld) [#/Vol] 109 10*3/uL 150-450 [facility] Serum or plasma albumin jamel urement (mass/volume)Ordered By: Kasey Arenas on 03-10-2022 Albumin [Mass/Vol] 2.8 g/dL 3.2-5.0 [facility] Serum or plasma albumin/glob ulin mass ratioOrdered By: Kasey Arenas on 03-10-2022 Albumin/Globulin [Mass ratio] 0.8 {ratio} 0.9-2.4 [facility] Serum or plasma calcium jamel urement (mass/volume)Ordered By: Kasey Arenas on 03-10-2022 Calcium [Mass/Vol] 8.1 mg/dL 8.5-10.1 [facility] Serum or plasma creatinine m easurement (mass/volume)Ordered By: Kasey Arenas on 03-10-2022 Creatinine [Mass/Vol] 1.46 mg/dL 0.70-1.30 [facility] Comment on above: The validity of the calculated GFR & GFRAA in patients over 70 years has not been determined. Clinical correlation is essential. Serum or plasma urea nitroge n measurement (mass/volume)Ordered By: Kasey Arenas on 03-10-2022 Urea nitrogen [Mass/Vol] 46 mg/dL 7-18 [facility] Thin prep Papanicolaou smear with manual screeningOrdered By: Kasey Arenas on 03-10-2022 Thin prep Papanicolaou smear with manual screening 36 U/L 15-37 [facility] Thin prep Papanicolaou smear with manual screening 6 5-15 [facility] Bacteria identified Respirat ory culture Nom (Unsp spec)Ordered By: Dr. Banks on 03-06-2022 Respiratory Culture Stenotrophomonas maltophilia [facility] Absolute lymphocyte countOrd ered By: Dr. Banks on 03-04-2022 Lymphocytes Auto (Unsp spec) [#/Vol] 0.84 10*3/uL 0.83-4.51 [facility] Basophil percentageOrdered B y: Dr. Banks on 03-04-2022 Basophils/100 WBC (Bld) 0.0 % 0-1 [facility] Chloride [Moles/Vol] 104 mmol/L 98-107 [facility] Eosinophils/100 WBC (Bld) 0.0 % 0-5 [facility] Glucose [Mass/Vol] 223 mg/dL 74-106 [facility] Comment on above: Glucose result great er than or equal to 200 mg/dLsuggests DIABETES MELLITUS per A.D.A. criteria. Neutrophils (Bld) [#/Vol] 3.8 10*3/uL 2.0-7.7 [facility] Neutrophils/100 WBC (Bld) 78.5 % 47-70 [facility] Potassium [Moles/Vol] 5.2 mmol/L 3.5-5.1 [facility] Sodium [Moles/Vol] 139 mmol/L 136-145 [facility] WBC (Bld) [#/Vol] 4.9 10*3/uL 4.4-11.0 [facility] Blood erythrocytes count (nu mber/volume)Ordered By: Dr. Banks on 03-04-2022 RBC (Bld) [#/Vol] 2.99 10*6/uL 4.6-6.2 [facility] Blood hemoglobin measurement (mass/volume)Ordered By: Dr. Banks on 03-04-2022 Hemoglobin (Bld) [Mass/Vol] 8.8 g/dL 13.0-16.5 [facility] Blood lymphocytes/100 leukoc ytesOrdered By: Dr. Banks on 03-04-2022 Lymphocytes/100 WBC (Bld) 17.2 % 19-41 [facility] Blood monocytes/100 leukocyt esOrdered By: Dr. Banks on 03-04-2022 Monocytes/100 WBC (Bld) 3.5 % 0-10 [facility] Blood platelet mean volumeOr dered By: Dr. Banks on 03-04-2022 Platelet mean volume (Bld) [Entitic vol] 10.2 fL 6.2-12.0 [facility] Determination of erythrocyte mean corpuscular volume (MCV)Ordered By: Dr. Banks on 03-04-2022 MCV (RBC) [Entitic vol] 100.7 fL 80-94 [facility] Hematocrit Auto (Bld) [Volum e fraction]Ordered By: Dr. Banks on 03-04-2022 Hematocrit (Bld) [Volume fraction] 30.1 % 40-54 [facility] Laboratory - Chemistry and C hemistry - challengeOrdered By: Dr. Banks on 03-04-2022 CO2 [Moles/Vol] 28.0 mmol/L 21.0-32.0 [facility] Urea nitrogen/Creatinine [Mass ratio] 24.2 mg/mg 10-20 [facility] - Hematology and Cell countsOrdered By: Dr. Banks on 03-04-2022 Erythrocyte distribution width (RBC) [Entitic vol] 63.7 fL 35.1-43.9 [facility] Erythrocyte distribution width (RBC) [Ratio] 17.0 % 11.6-14.6 [facility] Immature granulocytes/100 WBC (Bld) 0.800 % 0.0-0.9 [facility] Comment on above: IG% - Immature Granu locytes (promyelocytes, myelocytes and metamyelocytes) > 1% indicates that a LEFT SHIFT is Present. MCH (RBC) [Entitic mass] 29.4 pg 27.0-32.0 [facility] Nucleated RBC/100 WBC (Bld) [Ratio] 0 % 0-5 [facility] MCHC Auto (RBC) [Mass/Vol]Or dered By: Dr. Banks on 03-04-2022 MCHC (RBC) [Mass/Vol] 29.2 g/dL 32-36 [facility] No Panel InformationOrdered By: Dr. Banks on 03-04-2022 Estimated Creatinine Clearance Calc 25.11 ml/min [facility] Estimated GFR (MDRD) Amer 34 mL/min >60 [facility] Comment on above: GFR Calc Estimated GFR (MDRD) Non-Af Amer 28 mL/min >60 [facility] Comment on above: Non- GFR Calc Platelets bldOrdered By: Dr. Banks on 03-04-2022 Platelets (Bld) [#/Vol] 104 10*3/uL 150-450 [facility] Serum or plasma calcium jamel urement (mass/volume)Ordered By: Dr. Banks on 03-04-2022 Calcium [Mass/Vol] 8.1 mg/dL 8.5-10.1 [facility] Serum or plasma creatinine m easurement (mass/volume)Ordered By: Dr. Banks on 03-04-2022 Creatinine [Mass/Vol] 2.40 mg/dL 0.70-1.30 [facility] Comment on above: The validity of the calculated GFR & GFRAA in patients over 70 years has not been determined. Clinical correlation is essential. Serum or plasma urea nitroge n measurement (mass/volume)Ordered By: Dr. Banks on 03-04-2022 Urea nitrogen [Mass/Vol] 58 mg/dL 7-18 [facility] Thin prep Papanicolaou smear with manual screeningOrdered By: Dr. Banks on 03-04-2022 Thin prep Papanicolaou smear with manual screening 7 5-15 [facility] Basophil percentageOrdered B y: Dr. Banks on 03-03-2022 Basophil percentage 4.9 mg/dL 2.5-4.9 [facility] Bilirubin [Mass/Vol] 0.60 mg/dL 0.20-1.00 [facility] Comment on above: For patients on eltr ombopag therapy, use of Dimension [place] TBIL is not recommended. Protein [Mass/Vol] 6.8 g/dL 6.4-8.2 [facility] Blood platelet adequacy dete ction by light microscopyOrdered By: Dr. Banks on 03-03-2022 Platelets LM Ql (Bld) MOD DEC ADEQ [facility] Gram stain for investigation of transfusion reactionOrdered By: Dr. Banks on 03-03-2022 Microscopic observation Gram stain Nom (Unsp spec) [facility] - Chemistry and C hemistry - challengeOrdered By: Dr. Banks on 03-03-2022 ALP [Catalytic activity/Vol] 138 U/L 45-117 [facility] ALT [Catalytic activity/Vol] 15 U/L 16-61 [facility] Globulin (S) [Mass/Vol] 4.2 g/dL 2.2-4.2 [facility] Magnesium [Mass/Vol] 1.9 mg/dL 1.6-2.6 [facility] Laboratory - Hematology and Cell countsOrdered By: Dr. Banks on 03-03-2022 Anisocytosis Ql (Bld) 1+ [facility] Macrocytes detectionOrdered By: Dr. Banks on 03-03-2022 Macrocytes Ql (Bld) 1+ [facility] No Panel InformationOrdered By: Dr. Banks on 03-03-2022 Thyroid Stimulating Hormone (TSH) 2.41 uIU/mL 0.358-3.74 [facility] Review by pathologistOrdered By: Dr. Banks on 03-03-2022 Pathologist review Alvin (Unsp spec) [Interp] Reviewed [facility] Comment on above: Previous reported re sult: Suyapa wagner Edited by: [email or web address] on 03/04/22:1039Pancytopenia.Leukopenia Macrocytic anemia.ThrombocytopeniaClinical correlation necessary.Keith Gates M.D. 03/04/22 AMENDED REPORT 03/04/22 1039 PATH REV previously reported as: Suyapa wagner Serum or plasma albumin jamel urement (mass/volume)Ordered By: Dr. Banks on 03-03-2022 Albumin [Mass/Vol] 2.6 g/dL 3.2-5.0 [facility] Serum or plasma albumin/glob ulin mass ratioOrdered By: Dr. Banks on 03-03-2022 Albumin/Globulin [Mass ratio] 0.6 {ratio} 0.9-2.4 [facility] Thin prep Papanicolaou smear with manual screeningOrdered By: Dr. Banks on 03-03-2022 Thin prep Papanicolaou smear with manual screening 18 U/L 15-37 [facility] Urine Legionella pneumophila antigen detectionOrdered By: Dr. Banks on 03-03-2022 L. pneumophila Ag Ql (U) [facility] Absolute lymphocyte countOrd ered By: Dr. Garland on 03-02-2022 Lymphocytes Auto (Unsp spec) [#/Vol] 1.47 10*3/uL 0.83-4.51 [facility] Basophil percentageOrdered B y: Dr. Garland on 03-02-2022 Basophils/100 WBC (Bld) 0.0 % 0-1 [facility] Chloride [Moles/Vol] 106 mmol/L 98-107 [facility] Eosinophils/100 WBC (Bld) 0.2 % 0-5 [facility] Glucose [Mass/Vol] 112 mg/dL 74-106 [facility] Comment on above: Fasting Glucose resu lt from 100 to 125 mg/dL suggests IMPAIRED HOMEOSTASIS per A.D.A. criteria. Neutrophils (Bld) [#/Vol] 3.6 10*3/uL 2.0-7.7 [facility] Neutrophils/100 WBC (Bld) 66.7 % 47-70 [facility] Potassium [Moles/Vol] 4.5 mmol/L 3.5-5.1 [facility] Sodium [Moles/Vol] 141 mmol/L 136-145 [facility] WBC (Bld) [#/Vol] 5.3 10*3/uL 4.4-11.0 [facility] Blood erythrocytes count (nu mber/volume)Ordered By: Dr. Garland on 03-02-2022 RBC (Bld) [#/Vol] 4.06 10*6/uL 4.6-6.2 [facility] Blood hemoglobin measurement (mass/volume)Ordered By: Dr. Garland on 03-02-2022 Hemoglobin (Bld) [Mass/Vol] 12.0 g/dL 13.0-16.5 [facility] Blood lymphocytes/100 leukoc ytesOrdered By: Dr. Garland on 03-02-2022 Lymphocytes/100 WBC (Bld) 27.6 % 19-41 [facility] Blood monocytes/100 leukocyt esOrdered By: Dr. Garland on 03-02-2022 Monocytes/100 WBC (Bld) 5.1 % 0-10 [facility] Blood platelet mean volumeOr dered By: Dr. Garland on 03-02-2022 Platelet mean volume (Bld) [Entitic vol] 10.3 fL 6.2-12.0 [facility] Determination of erythrocyte mean corpuscular volume (MCV)Ordered By: Dr. Garland on 03-02-2022 MCV (RBC) [Entitic vol] 100.2 fL 80-94 [facility] Hematocrit Auto (Bld) [Volum e fraction]Ordered By: Dr. Garland on 03-02-2022 Hematocrit (Bld) [Volume fraction] 40.7 % 40-54 [facility] Influenza virus A and B and SARS-CoV-2 (COVID-19) Ag panel - Upper respiratory specimOrdered By: Dr. Garland on 03-02-2022 SARS-CoV-2 (COVID-19) RNA AMBER+probe Ql (Resp) [facility] - Chemistry and C hemistry - challengeOrdered By: Dr. Garland on 03-02-2022 CO2 [Moles/Vol] 29.0 mmol/L 21.0-32.0 [facility] Urea nitrogen/Creatinine [Mass ratio] 19.6 mg/mg 10-20 [facility] - Hematology and Cell countsOrdered By: Dr. Garland on 03-02-2022 Anisocytosis Ql (Bld) 1+ [facility] Erythrocyte distribution width (RBC) [Entitic vol] 65.8 fL 35.1-43.9 [facility] Erythrocyte distribution width (RBC) [Ratio] 17.5 % 11.6-14.6 [facility] Immature granulocytes/100 WBC (Bld) 0.400 % 0.0-0.9 [facility] Comment on above: IG% - Immature Granu locytes (promyelocytes, myelocytes and metamyelocytes) > 1% indicates that a LEFT SHIFT is Present. MCH (RBC) [Entitic mass] 29.6 pg 27.0-32.0 [facility] Nucleated RBC/100 WBC (Bld) [Ratio] 0 % 0-5 [facility] MCHC Auto (RBC) [Mass/Vol]Or dered By: Dr. Garland on 03-02-2022 MCHC (RBC) [Mass/Vol] 29.5 g/dL 32-36 [facility] No Panel InformationOrdered By: Dr. Banks on 03-02-2022 Methicillin-Resist S.aureus DNA PCR Negative Negative [facility] No Panel InformationOrdered By: Dr. Garland on 03-02-2022 Estimated Creatinine Clearance Calc 26.90 ml/min [facility] Estimated GFR (MDRD) Amer 37 mL/min >60 [facility] Comment on above: GFR Calc Estimated GFR (MDRD) Non-Af Amer 31 mL/min >60 [facility] Comment on above: Non- GFR Calc Troponin I High Sensitivity 56 pg/mL 3.0-78.0 [facility] Comment on above: Please Note: New Mitali t Units and Gender Specific Reference Ranges. For more information see Policy Stat Procedure [place] High Sensitivity Troponin (TNIH) and attachments. Platelets bldOrdered By: Dr. Garland on 03-02-2022 Platelets (Bld) [#/Vol] 117 10*3/uL 150-450 [facility] Serum or plasma calcium jamel urement (mass/volume)Ordered By: Dr. Garland on 03-02-2022 Calcium [Mass/Vol] 8.5 mg/dL 8.5-10.1 [facility] Serum or plasma creatinine m easurement (mass/volume)Ordered By: Dr. Garland on 03-02-2022 Creatinine [Mass/Vol] 2.24 mg/dL 0.70-1.30 [facility] Comment on above: The validity of the calculated GFR & GFRAA in patients over 70 years has not been determined. Clinical correlation is essential. Serum or plasma urea nitroge n measurement (mass/volume)Ordered By: Dr. Garland on 03-02-2022 Urea nitrogen [Mass/Vol] 44 mg/dL 7-18 [facility] Thin prep Papanicolaou smear with manual screeningOrdered By: Dr. Garland on 03-02-2022 Thin prep Papanicolaou smear with manual screening 6 5-15 [facility] Basophil percentageOrdered B y: Dr. Carrasco on 02-25-2022 Chloride [Moles/Vol] 107 mmol/L 98-107 [facility] Glucose [Mass/Vol] 219 mg/dL 74-106 [facility] Comment on above: Glucose result great er than or equal to 200 mg/dLsuggests DIABETES MELLITUS per A.D.A. criteria. Potassium [Moles/Vol] 4.2 mmol/L 3.5-5.1 [facility] Sodium [Moles/Vol] 143 mmol/L 136-145 [facility] WBC (Bld) [#/Vol] 5.0 10*3/uL 4.4-11.0 [facility] Blood erythrocytes count (nu mber/volume)Ordered By: Dr. Carrasco on 02-25-2022 RBC (Bld) [#/Vol] 3.27 10*6/uL 4.6-6.2 [facility] Blood hemoglobin measurement (mass/volume)Ordered By: Dr. Carrasco on 02-25-2022 Hemoglobin (Bld) [Mass/Vol] 9.9 g/dL 13.0-16.5 [facility] Blood manual differential co mment interpretation (narrative result)Ordered By: Dr. Carrasco on 02-25-2022 Manual differential comment Alvin (Bld) [Interp] See comment [facility] Comment on above: THROMBOCYTOPENIA MOD . DECREASEDANISOCYTOSIS RARE Blood platelet mean volumeOr dered By: Dr. Carrasco on 02-25-2022 Platelet mean volume (Bld) [Entitic vol] 10.3 fL 6.2-12.0 [facility] Determination of erythrocyte mean corpuscular volume (MCV)Ordered By: Dr. Carrasco on 02-25-2022 MCV (RBC) [Entitic vol] 103.7 fL 80-94 [facility] Hematocrit Auto (Bld) [Volum e fraction]Ordered By: Dr. Carrasco on 02-25-2022 Hematocrit (Bld) [Volume fraction] 33.9 % 40-54 [facility] Hemoglobin in reticulocytes (mass per reticulocyte)Ordered By: Dr. Carrasco on 02-25-2022 Hemoglobin (Reticulocytes) [Entitic mass] 27.9 pg 30-35 [facility] Iron measurement (mass/mass) Ordered By: Dr. Carrasco on 02-25-2022 Iron (Unsp spec) [Mass/Mass] 37 ug/dL 65-175 [facility] - Chemistry and C hemistry - challengeOrdered By: Dr. Carrasco on 02-25-2022 CO2 [Moles/Vol] 29.0 mmol/L 21.0-32.0 [facility] Urea nitrogen/Creatinine [Mass ratio] 20.0 mg/mg 10-20 [facility] - Hematology and Cell countsOrdered By: Dr. Carrasco on 02-25-2022 Erythrocyte distribution width (RBC) [Entitic vol] 72.1 fL 35.1-43.9 [facility] Erythrocyte distribution width (RBC) [Ratio] 19.0 % 11.6-14.6 [facility] MCH (RBC) [Entitic mass] 30.3 pg 27.0-32.0 [facility] MCHC Auto (RBC) [Mass/Vol]Or dered By: Dr. Carrasco on 02-25-2022 MCHC (RBC) [Mass/Vol] 29.2 g/dL 32-36 [facility] No Panel InformationOrdered By: Dr. Carrasco on 02-25-2022 Estimated GFR (MDRD) Amer 33 mL/min >60 [facility] Comment on above: GFR Calc Estimated GFR (MDRD) Non-Af Amer 27 mL/min >60 [facility] Comment on above: Non- GFR Calc Immature Platelet Fraction 5.5 % 1.0-7.9 [facility] Comment on above: Low PLT + Low IPF kinney ggest a bone marrow production disorderLow PLT + high IPF suggests peripheral destruction(e.g.ITP, TTP, HIT, DIC, autoimmune) or bone marrow recoveryTrending of serial IPF measurements is recommended when evaluating for bone marrow responesValue above normal range indicates an increase in RBC cellular response from bone marrow. Immature Reticulocyte Fraction 18.90 % 3.00-15.90 [facility] Reticulocyte Count 4.10 % 0.5-1.5 [facility] Total Iron Binding Capacity 280 ug/dL 250-450 [facility] Platelets bldOrdered By: Dr. Carrasco on 02-25-2022 Platelets (Bld) [#/Vol] 86 10*3/uL 150-450 [facility] Serum or plasma calcium jamel urement (mass/volume)Ordered By: Dr. Carrasco on 02-25-2022 Calcium [Mass/Vol] 8.2 mg/dL 8.5-10.1 [facility] Serum or plasma creatinine m easurement (mass/volume)Ordered By: Dr. Carrasco on 02-25-2022 Creatinine [Mass/Vol] 2.50 mg/dL 0.70-1.30 [facility] Comment on above: The validity of the calculated GFR & GFRAA in patients over 70 years has not been determined. Clinical correlation is essential. Serum or plasma ferritin ahmet surement (mass/volume)Ordered By: Dr. Carrasco on 02-25-2022 Ferritin [Mass/Vol] 232 ng/mL 26-388 [facility] Serum or plasma urea nitroge n measurement (mass/volume)Ordered By: Dr. Carrasco on 02-25-2022 Urea nitrogen [Mass/Vol] 50 mg/dL 7-18 [facility] Thin prep Papanicolaou smear with manual screeningOrdered By: Dr. Carrasco on 02-25-2022 Thin prep Papanicolaou smear with manual screening 7 5-15 [facility] Culture, urineOrdered By: Dr Truong Carrasco on 01-28-2022 Bacteria identified Cx Nom (U) Culture exhibits no growth. [facility] Basophil percentageOrdered B y: Dr. Carrasco on 01-25-2022 Basophil percentage 0-5 SEEN /hpf 0-5 [facility] Bilirubin Test strip Ql (U)O rdered By: Dr. Carrasco on 01-25-2022 Bilirubin Ql (U) Negative Negative [facility] Ketones Test strip Ql (U)Ord ered By: Dr. Carrasco on 01-25-2022 Ketones Ql (U) Negative Negative [facility] Mucus LM Ql (Urine sed)Order ed By: Dr. Carrasco on 01-25-2022 Mucus Ql (Urine sed) 0 SEEN /hpf [facility] Nitrite Test strip Ql (U)Ord ered By: Dr. Crarasco on 01-25-2022 Nitrite Ql (U) Negative Negative [facility] Protein Test strip Ql (U)Ord ered By: Dr. Carrasco on 01-25-2022 Protein Ql (U) 30 mg/dl Negative [facility] Squamous epithelial cells de tection in urine sediment by light microscopyOrdered By: Dr. Carrasco on 01-25-2022 Epithelial cells.squamous LM Ql (Urine sed) 0 SEEN /hpf 0-5 [facility] Urine blood detectionOrdered By: Dr. Carrasco on 01-25-2022 RBC Ql (U) 250 /ul Negative [facility] RBC Ql (U) 10-25 SEEN /hpf 0-5 [facility] Urine clarityOrdered By: Dr. Carrasco on 01-25-2022 Clarity (U) Clear Clear [facility] Urine color determinationOrd ered By: Dr. Carrasco on 01-25-2022 Color (U) Yellow Yellow [facility] Urine glucose detectionOrder ed By: Dr. Carrasco on 01-25-2022 Glucose Ql (U) Normal mg/dl Normal [facility] Urine leukocyte esterase det ection by dipstickOrdered By: Dr. Carrasco on 01-25-2022 Leukocyte esterase Test strip Ql (U) Negative Negative [facility] Urine pHOrdered By: Dr. Connie leon on 01-25-2022 pH (U) 5.0 [pH] 5.0 - 8.0 [facility] Urine sediment bacteria coun t by microscopy (number/high power field)Ordered By: Dr. Carrasco on 01-25-2022 Bacteria LM.HPF (Urine sed) [#/Area] 0 /[HPF] None Seen [facility] Urine specific gravity measu rementOrdered By: Dr. Carrasco on 01-25-2022 Specific gravity (U) [Rel density] 1.015 1.002-1.030 [facility] Urobilinogen Auto test strip Ql (U)Ordered By: Dr. Carrasco on 01-25-2022 Urobilinogen Ql (U) Normal mg/dl Normal [facility] Basophil percentageOrdered B y: Sherry Ahn on 01-21-2022 Bilirubin [Mass/Vol] 0.50 mg/dL 0.20-1.00 [facility] Comment on above: For patients on eltr ombopag therapy, use of Dimension [place] TBIL is not recommended. Chloride [Moles/Vol] 103 mmol/L 98-107 [facility] Glucose [Mass/Vol] 111 mg/dL 74-106 [facility] Comment on above: Fasting Glucose resu lt from 100 to 125 mg/dL suggests IMPAIRED HOMEOSTASIS per A.D.A. criteria. Potassium [Moles/Vol] 3.7 mmol/L 3.5-5.1 [facility] Protein [Mass/Vol] 6.8 g/dL 6.4-8.2 [facility] Sodium [Moles/Vol] 140 mmol/L 136-145 [facility] Laboratory - Chemistry and C hemistry - challengeOrdered By: Sherry Ahn on 01-21-2022 ALP [Catalytic activity/Vol] 155 U/L 45-117 [facility] ALT [Catalytic activity/Vol] 18 U/L 16-61 [facility] CO2 [Moles/Vol] 29.0 mmol/L 21.0-32.0 [facility] Globulin (S) [Mass/Vol] 4.3 g/dL 2.2-4.2 [facility] Urea nitrogen/Creatinine [Mass ratio] 12.2 mg/mg 10-20 [facility] No Panel InformationOrdered By: Sherry Ahn on 01-21-2022 Estimated GFR (MDRD) Amer 27 mL/min >60 [facility] Comment on above: GFR Calc Estimated GFR (MDRD) Non-Af Amer 23 mL/min >60 [facility] Comment on above: Non- GFR Calc Serum or plasma albumin jamel urement (mass/volume)Ordered By: Sherry Ahn on 01-21-2022 Albumin [Mass/Vol] 2.5 g/dL 3.2-5.0 [facility] Serum or plasma albumin/glob ulin mass ratioOrdered By: Sherry Ahn on 01-21-2022 Albumin/Globulin [Mass ratio] 0.6 {ratio} 0.9-2.4 [facility] Serum or plasma calcium jamel urement (mass/volume)Ordered By: Sherry Ahn on 01-21-2022 Calcium [Mass/Vol] 8.2 mg/dL 8.5-10.1 [facility] Serum or plasma creatinine m easurement (mass/volume)Ordered By: Sherry Ahn on 01-21-2022 Creatinine [Mass/Vol] 2.94 mg/dL 0.70-1.30 [facility] Comment on above: The validity of the calculated GFR & GFRAA in patients over 70 years has not been determined. Clinical correlation is essential. Serum or plasma urea nitroge n measurement (mass/volume)Ordered By: Sherry Ahn on 01-21-2022 Urea nitrogen [Mass/Vol] 36 mg/dL 7-18 [facility] Thin prep Papanicolaou smear with manual screeningOrdered By: Sherry Ahn on 01-21-2022 Thin prep Papanicolaou smear with manual screening 22 U/L 15-37 [facility] Thin prep Papanicolaou smear with manual screening 8 - [facility] Whole blood hemoglobin A1c/t otal hemoglobin ratio (mass fraction)Ordered By: Sherry Ahn on 01-21-2022 HbA1c (Bld) [Mass fraction] 5.9 % 3.8-5.6 [facility] Comment on above: Normal < 5.7 % Predi abetic 5.7 - 6.4 % Diabetic >or= 6.5 % Please note range changes. Absolute lymphocyte countOrd ered By: Dr. Carrasco on 01-06-2022 Lymphocytes Auto (Unsp spec) [#/Vol] 2.01 10*3/uL 0.83-4.51 [facility] Basophil percentageOrdered B y: Dr. Carrasco on 01-06-2022 Basophils/100 WBC (Bld) 0.2 % 0-1 [facility] Eosinophils/100 WBC (Bld) 0.2 % 0-5 [facility] Neutrophils (Bld) [#/Vol] 4.1 10*3/uL 2.0-7.7 [facility] Neutrophils/100 WBC (Bld) 61.0 % 47-70 [facility] WBC (Bld) [#/Vol] 6.6 10*3/uL 4.4-11.0 [facility] Basophil percentageOrdered B y: Tc Subramanian on 01-06-2022 Chloride [Moles/Vol] 101 mmol/L 98-107 [facility] Glucose [Mass/Vol] 110 mg/dL 74-106 [facility] Comment on above: Fasting Glucose resu lt from 100 to 125 mg/dL suggests IMPAIRED HOMEOSTASIS per A.D.A. criteria. Potassium [Moles/Vol] 5.0 mmol/L 3.5-5.1 [facility] Sodium [Moles/Vol] 135 mmol/L 136-145 [facility] Blood erythrocytes count (nu mber/volume)Ordered By: Dr. Carrasco on 01-06-2022 RBC (Bld) [#/Vol] 3.62 10*6/uL 4.6-6.2 [facility] Blood hemoglobin measurement (mass/volume)Ordered By: Dr. Carrasco on 01-06-2022 Hemoglobin (Bld) [Mass/Vol] 10.3 g/dL 13.0-16.5 [facility] Blood lymphocytes/100 leukoc ytesOrdered By: Dr. Carrasco on 01-06-2022 Lymphocytes/100 WBC (Bld) 30.4 % 19-41 [facility] Blood monocytes/100 leukocyt esOrdered By: Dr. Carrasco on 01-06-2022 Monocytes/100 WBC (Bld) 7.7 % 0-10 [facility] Blood platelet mean volumeOr dered By: Dr. Carrasco on 01-06-2022 Platelet mean volume (Bld) [Entitic vol] 9.1 fL 6.2-12.0 [facility] Determination of erythrocyte mean corpuscular volume (MCV)Ordered By: Dr. Carrasco on 01-06-2022 MCV (RBC) [Entitic vol] 90.6 fL 80-94 [facility] Hematocrit Auto (Bld) [Volum e fraction]Ordered By: Dr. Carrasco on 01-06-2022 Hematocrit (Bld) [Volume fraction] 32.8 % 40-54 [facility] Laboratory - Chemistry and C hemistry - challengeOrdered By: Tc Subramanian on 01-06-2022 CO2 [Moles/Vol] 28.0 mmol/L 21.0-32.0 [facility] Urea nitrogen/Creatinine [Mass ratio] 17.6 mg/mg 10-20 [facility] - Hematology and Cell countsOrdered By: Dr. Carrasco on 01-06-2022 Erythrocyte distribution width (RBC) [Entitic vol] 47.0 fL 35.1-43.9 [facility] Erythrocyte distribution width (RBC) [Ratio] 14.4 % 11.6-14.6 [facility] Immature granulocytes/100 WBC (Bld) 0.500 % 0.0-0.9 [facility] Comment on above: IG% - Immature Granu locytes (promyelocytes, myelocytes and metamyelocytes) > 1% indicates that a LEFT SHIFT is Present. MCH (RBC) [Entitic mass] 28.5 pg 27.0-32.0 [facility] Nucleated RBC/100 WBC (Bld) [Ratio] 0.6 % 0-5 [facility] MCHC Auto (RBC) [Mass/Vol]Or dered By: Dr. Carrasco on 01-06-2022 MCHC (RBC) [Mass/Vol] 31.4 g/dL 32-36 [facility] No Panel InformationOrdered By: Tc Subramanian on 01-06-2022 Estimated GFR (MDRD) Amer 32 mL/min >60 [facility] Comment on above: GFR Calc Estimated GFR (MDRD) Non-Af Amer 26 mL/min >60 [facility] Comment on above: Non- GFR Calc Platelets bldOrdered By: Dr. Carrasco on 01-06-2022 Platelets (Bld) [#/Vol] 187 10*3/uL 150-450 [facility] Serum or plasma calcium jamel urement (mass/volume)Ordered By: Tc Subramanian on 01-06-2022 Calcium [Mass/Vol] 8.3 mg/dL 8.5-10.1 [facility] Serum or plasma creatinine m easurement (mass/volume)Ordered By: Tc Subramanian on 01-06-2022 Creatinine [Mass/Vol] 2.56 mg/dL 0.70-1.30 [facility] Comment on above: The validity of the calculated GFR & GFRAA in patients over 70 years has not been determined. Clinical correlation is essential. Serum or plasma urea nitroge n measurement (mass/volume)Ordered By: Tc Subramanian on 01-06-2022 Urea nitrogen [Mass/Vol] 45 mg/dL 7-18 [facility] Thin prep Papanicolaou smear with manual screeningOrdered By: Tc Subramanian on 01-06-2022 Thin prep Papanicolaou smear with manual screening 6 5-15 [facility] Absolute lymphocyte countOrd ered By: Dr. Asencio on 12-28-2021 Lymphocytes Auto (Unsp spec) [#/Vol] 2.01 10*3/uL 0.83-4.51 [facility] Basophil percentageOrdered B y: Dr. Asencio on 12-28-2021 Basophil percentage 0-5 SEEN /hpf 0-5 [facility] Basophils/100 WBC (Bld) 0.2 % 0-1 [facility] Bilirubin [Mass/Vol] 0.40 mg/dL 0.20-1.00 [facility] Comment on above: For patients on eltr ombopag therapy, use of Dimension [place] TBIL is not recommended. Chloride [Moles/Vol] 101 mmol/L 98-107 [facility] Eosinophils/100 WBC (Bld) 0.0 % 0-5 [facility] Glucose [Mass/Vol] 166 mg/dL 74-106 [facility] Comment on above: Fasting Glucose resu lt greater than or equal to 126 mg/dL suggests DIABETES MELLITUS per A.D.A. criteria. Neutrophils (Bld) [#/Vol] 3.4 10*3/uL 2.0-7.7 [facility] Neutrophils/100 WBC (Bld) 59.2 % 47-70 [facility] Potassium [Moles/Vol] 4.4 mmol/L 3.5-5.1 [facility] Protein [Mass/Vol] 7.3 g/dL 6.4-8.2 [facility] [facility] Sodium [Moles/Vol] 134 mmol/L 136-145 [facility] WBC (Bld) [#/Vol] 5.7 10*3/uL 4.4-11.0 [facility] Bilirubin Test strip Ql (U)O rdered By: Dr. Asencio on 12-28-2021 Bilirubin Ql (U) Negative Negative [facility] Blood erythrocytes count (nu mber/volume)Ordered By: Dr. Asencio on 12-28-2021 RBC (Bld) [#/Vol] 3.95 10*6/uL 4.6-6.2 [facility] Blood hemoglobin measurement (mass/volume)Ordered By: Dr. Asencio on 12-28-2021 Hemoglobin (Bld) [Mass/Vol] 11.1 g/dL 13.0-16.5 [facility] Blood lymphocytes/100 leukoc ytesOrdered By: Dr. Asencio on 12-28-2021 Lymphocytes/100 WBC (Bld) 35.1 % 19-41 [facility] Blood monocytes/100 leukocyt esOrdered By: Dr. Asencio on 12-28-2021 Monocytes/100 WBC (Bld) 5.2 % 0-10 [facility] Blood platelet mean volumeOr dered By: Dr. Asencio on 12-28-2021 Platelet mean volume (Bld) [Entitic vol] 9.8 fL 6.2-12.0 [facility] Determination of erythrocyte mean corpuscular volume (MCV)Ordered By: Dr. Asencio on 12-28-2021 MCV (RBC) [Entitic vol] 86.3 fL 80-94 [facility] Hematocrit Auto (Bld) [Volum e fraction]Ordered By: Dr. Asencio on 12-28-2021 Hematocrit (Bld) [Volume fraction] 34.1 % 40-54 [facility] Ketones Test strip Ql (U)Ord ered By: Dr. Asencio on 12-28-2021 Ketones Ql (U) Negative Negative [facility] Laboratory - Chemistry and C hemistry - challengeOrdered By: Dr. Asencio on 12-28-2021 ALP [Catalytic activity/Vol] 73 U/L 45-117 [facility] ALT [Catalytic activity/Vol] 18 U/L 16-61 [facility] CO2 [Moles/Vol] 25.0 mmol/L 21.0-32.0 [facility] Globulin (S) [Mass/Vol] 4.5 g/dL 2.2-4.2 [facility] Urea nitrogen/Creatinine [Mass ratio] 12.8 mg/mg 10-20 [facility] Laboratory - Hematology and Cell countsOrdered By: Dr. Asencio on 12-28-2021 Erythrocyte distribution width (RBC) [Entitic vol] 43.4 fL 35.1-43.9 [facility] Erythrocyte distribution width (RBC) [Ratio] 13.7 % 11.6-14.6 [facility] Immature granulocytes/100 WBC (Bld) 0.300 % 0.0-0.9 [facility] Comment on above: IG% - Immature Granu locytes (promyelocytes, myelocytes and metamyelocytes) > 1% indicates that a LEFT SHIFT is Present. MCH (RBC) [Entitic mass] 28.1 pg 27.0-32.0 [facility] Nucleated RBC/100 WBC (Bld) [Ratio] 0 % 0-5 [facility] MCHC Auto (RBC) [Mass/Vol]Or dered By: Dr. Asencio on 12-28-2021 MCHC (RBC) [Mass/Vol] 32.6 g/dL 32-36 [facility] Mucus LM Ql (Urine sed)Order ed By: Dr. Asencio on 12-28-2021 Mucus Ql (Urine sed) 0 SEEN /hpf [facility] Nitrite Test strip Ql (U)Ord ered By: Dr. Asencio on 12-28-2021 Nitrite Ql (U) Negative Negative [facility] No Panel InformationOrdered By: Dr. Asencio on 12-28-2021 Estimated Creatinine Clearance Calc 27.92 ml/min [facility] Estimated GFR (MDRD) Amer 38 mL/min >60 [facility] Comment on above: GFR Calc Estimated GFR (MDRD) Non-Af Amer 32 mL/min >60 [facility] Comment on above: Non- GFR Calc Platelets bldOrdered By: Dr. Asencio on 12-28-2021 Platelets (Bld) [#/Vol] 109 10*3/uL 150-450 [facility] Protein Test strip Ql (U)Ord ered By: Dr. Asencio on 12-28-2021 Protein Ql (U) 100 mg/dl Negative [facility] Serum or plasma albumin jamel urement (mass/volume)Ordered By: Dr. Asencio on 12-28-2021 Albumin [Mass/Vol] 2.8 g/dL 3.2-5.0 [facility] Serum or plasma albumin/glob ulin mass ratioOrdered By: Dr. Asencio on 12-28-2021 Albumin/Globulin [Mass ratio] 0.6 {ratio} 0.9-2.4 [facility] Serum or plasma calcium jamel urement (mass/volume)Ordered By: Dr. Asencio on 12-28-2021 Calcium [Mass/Vol] 8.8 mg/dL 8.5-10.1 [facility] Serum or plasma creatinine m easurement (mass/volume)Ordered By: Dr. Asencio on 12-28-2021 Creatinine [Mass/Vol] 2.19 mg/dL 0.70-1.30 [facility] Comment on above: The validity of the calculated GFR & GFRAA in patients over 70 years has not been determined. Clinical correlation is essential. Serum or plasma urea nitroge n measurement (mass/volume)Ordered By: Dr. Asencio on 12-28-2021 Urea nitrogen [Mass/Vol] 28 mg/dL 7-18 [facility] Squamous epithelial cells de tection in urine sediment by light microscopyOrdered By: Dr. Asencio on 12-28-2021 Epithelial cells.squamous LM Ql (Urine sed) 0 SEEN /hpf 0-5 [facility] Thin prep Papanicolaou smear with manual screeningOrdered By: Dr. Asencio on 12-28-2021 Thin prep Papanicolaou smear with manual screening 21 U/L 15-37 [facility] Thin prep Papanicolaou smear with manual screening 8 5-15 [facility] Urine blood detectionOrdered By: Dr. Asencio on 12-28-2021 RBC Ql (U) 250 /ul Negative [facility] RBC Ql (U) 25-50 SEEN /hpf 0-5 [facility] Urine clarityOrdered By: Dr. Asencio on 12-28-2021 Clarity (U) Cloudy Clear [facility] Urine color determinationOrd ered By: Dr. Asencio on 12-28-2021 Color (U) Red Yellow [facility] Urine glucose detectionOrder ed By: Dr. Asencio on 12-28-2021 Glucose Ql (U) 50 mg/dl Normal [facility] Urine leukocyte esterase det ection by dipstickOrdered By: Dr. Asencio on 12-28-2021 Leukocyte esterase Test strip Ql (U) 25 /ul Negative [facility] Urine pHOrdered By: Dr. Anastasia forbes on 12-28-2021 pH (U) 6.5 [pH] 5.0 - 8.0 [facility] Urine sediment bacteria coun t by microscopy (number/high power field)Ordered By: Dr. Asencio on 12-28-2021 Bacteria LM.HPF (Urine sed) [#/Area] 0 /[HPF] None Seen [facility] Urine specific gravity measu rementOrdered By: Dr. Asencio on 12-28-2021 Specific gravity (U) [Rel density] 1.015 1.002-1.030 [facility] Urobilinogen Auto test strip Ql (U)Ordered By: Dr. Asencio on 12-28-2021 Urobilinogen Ql (U) Normal mg/dl Normal [facility] Absolute lymphocyte countOrd ered By: Dr. Carrasco on 12-22-2021 Lymphocytes Auto (Unsp spec) [#/Vol] 3.71 10*3/uL 0.83-4.51 [facility] Basophil percentageOrdered B y: Dr. Carrasco on 11-15-2022 Basophils/100 WBC (Bld) 0.3 % 0-1 [facility] Eosinophils/100 WBC (Bld) 0.2 % 0-5 [facility] Neutrophils (Bld) [#/Vol] 2.2 10*3/uL 2.0-7.7 [facility] Neutrophils/100 WBC (Bld) 34.6 % 47-70 [facility] WBC (Bld) [#/Vol] 6.4 10*3/uL 4.4-11.0 [facility] Blood erythrocytes count (nu mber/volume)Ordered By: Dr. Carrasco on 12-22-2021 RBC (Bld) [#/Vol] 4.25 10*6/uL 4.6-6.2 [facility] Blood hemoglobin measurement (mass/volume)Ordered By: Dr. Carrasco on 12-22-2021 Hemoglobin (Bld) [Mass/Vol] 12.3 g/dL 13.0-16.5 [facility] Blood lymphocytes/100 leukoc ytesOrdered By: Dr. Carrasco on 12-22-2021 Lymphocytes/100 WBC (Bld) 58.1 % 19-41 [facility] Blood monocytes/100 leukocyt esOrdered By: Dr. Carrasco on 12-22-2021 Monocytes/100 WBC (Bld) 6.6 % 0-10 [facility] Blood platelet mean volumeOr dered By: Dr. Carrasco on 12-22-2021 Platelet mean volume (Bld) [Entitic vol] 9.2 fL 6.2-12.0 [facility] Determination of erythrocyte mean corpuscular volume (MCV)Ordered By: Dr. Carrasco on 12-22-2021 MCV (RBC) [Entitic vol] 90.1 fL 80-94 [facility] Hematocrit Auto (Bld) [Volum e fraction]Ordered By: Dr. Carrasco on 12-22-2021 Hematocrit (Bld) [Volume fraction] 38.3 % 40-54 [facility] - Hematology and Cell countsOrdered By: Dr. Carrasco on 12-22-2021 Erythrocyte distribution width (RBC) [Entitic vol] 47.0 fL 35.1-43.9 [facility] Erythrocyte distribution width (RBC) [Ratio] 14.2 % 11.6-14.6 [facility] Immature granulocytes/100 WBC (Bld) 0.200 % 0.0-0.9 [facility] Comment on above: IG% - Immature Granu locytes (promyelocytes, myelocytes and metamyelocytes) > 1% indicates that a LEFT SHIFT is Present. MCH (RBC) [Entitic mass] 28.9 pg 27.0-32.0 [facility] Nucleated RBC/100 WBC (Bld) [Ratio] 0 % 0-5 [facility] MCHC Auto (RBC) [Mass/Vol]Or dered By: Dr. Carrasco on 12-22-2021 MCHC (RBC) [Mass/Vol] 32.1 g/dL 32-36 [facility] Platelets bldOrdered By: Dr. Carrasco on 12-22-2021 Platelets (Bld) [#/Vol] 137 10*3/uL 150-450 [facility] Basophil percentageon 2021 Bilirubin [Mass/Vol] 0.40 mg/dL 0.20-1.00 [facility] Work Phone: Comment on above: For patients on eltr ombopag therapy, use of Dimension [place] TBIL is not recommended. Chloride [Moles/Vol] 99 mmol/L 98-107 [facility] Work Phone: Glucose [Mass/Vol] 172 mg/dL 74-106 [facility] Work Phone: Comment on above: Fasting Glucose resu lt greater than or equal to 126 mg/dL suggests DIABETES MELLITUS per A.D.A. criteria. Potassium [Moles/Vol] 4.5 mmol/L 3.5-5.1 [facility] Work Phone: Protein [Mass/Vol] 7.2 g/dL 6.4-8.2 [facility] Work Phone: Sodium [Moles/Vol] 133 mmol/L 136-145 [facility] Work Phone: WBC (Bld) [#/Vol] 6.3 10*3/uL 4.4-11.0 [facility] Work Phone: Blood erythrocytes count (nu mber/volume)on 09-23-2021 RBC (Bld) [#/Vol] 4.97 10*6/uL 4.6-6.2 [facility] Work Phone: Blood hemoglobin measurement (mass/volume)on 09-23-2021 Hemoglobin (Bld) [Mass/Vol] 15.3 g/dL 13.0-16.5 [facility] Work Phone: Blood platelet mean volumeon 09-23-2021 Platelet mean volume (Bld) [Entitic vol] 8.8 fL 6.2-12.0 [facility] Work Phone: Determination of erythrocyte mean corpuscular volume (MCV)on 09-23-2021 MCV (RBC) [Entitic vol] 93.2 fL 80-94 [facility] Work Phone: Hematocrit Auto (Bld) [Volum e fraction]on 09-23-2021 Hematocrit (Bld) [Volume fraction] 46.3 % 40-54 [facility] Work Phone: Laboratory - Chemistry and C hemistry - challengeon 09-23-2021 ALP [Catalytic activity/Vol] 71 U/L 45-117 [facility] Work Phone: ALT [Catalytic activity/Vol] 29 U/L 16-61 [facility] Work Phone: CO2 [Moles/Vol] 27.0 mmol/L 21.0-32.0 [facility] Work Phone: Globulin (S) [Mass/Vol] 3.8 g/dL 2.2-4.2 [facility] Work Phone: Urea nitrogen/Creatinine [Mass ratio] 15.0 mg/mg 10-20 [facility] Work Phone: Laboratory - Hematology and Cell countson 09-23-2021 Erythrocyte distribution width (RBC) [Entitic vol] 44.2 fL 35.1-43.9 [facility] Work Phone: Erythrocyte distribution width (RBC) [Ratio] 12.9 % 11.6-14.6 [facility] Work Phone: MCH (RBC) [Entitic mass] 30.8 pg 27.0-32.0 [facility] Work Phone: MCHC Auto (RBC) [Mass/Vol]on 09-23-2021 MCHC (RBC) [Mass/Vol] 33.0 g/dL 32-36 [facility] Work Phone: No Panel Informationon 09-23 Estimated GFR (MDRD) Amer 82 mL/min >60 [facility] Work Phone: Comment on above: GFR Calc Estimated GFR (MDRD) Non-Af Amer 68 mL/min >60 [facility] Work Phone: Comment on above: Non- GFR Calc Prostate Specific Antigen Screen 0.43 ng/mL 0.00-4.00 [facility] Work Phone: Comment on above: This test was perfor med using the TPSA assay method for [employer] chemistry system. Values obtained with differentassay methods cannot be used interchangably.When changing PSA assays in the course of monitoring apatient, additional sequential testing should be carriedout to confirm baseline values. Platelets bldon 09-23-2021 Platelets (Bld) [#/Vol] 106 10*3/uL 150-450 [facility] Work Phone: Serum or plasma albumin jamel urement (mass/volume)on 09-23-2021 Albumin [Mass/Vol] 3.4 g/dL 3.2-5.0 [facility] Work Phone: Serum or plasma albumin/glob ulin mass ratioon 09-23-2021 Albumin/Globulin [Mass ratio] 0.9 {ratio} 0.9-2.4 [facility] Work Phone: Serum or plasma calcium jamel urement (mass/volume)on 08-17-2022 Calcium [Mass/Vol] 8.4 mg/dL 8.5-10.1 [facility] Work Phone: Serum or plasma creatinine m easurement (mass/volume)on 09-23-2021 Creatinine [Mass/Vol] 1.13 mg/dL 0.70-1.30 [facility] Work Phone: Comment on above: The validity of the calculated GFR & GFRAA in patients over 70 years has not been determined. Clinical correlation is essential. Serum or plasma urea nitroge n measurement (mass/volume)on 09-23-2021 Urea nitrogen [Mass/Vol] 17 mg/dL 7-18 [facility] Work Phone: Thin prep Papanicolaou smear with manual screeningon 09-23-2021 Thin prep Papanicolaou smear with manual screening 26 U/L 15-37 [facility] Work Phone: Thin prep Papanicolaou smear with manual screening 7 5-15 [facility] Work Phone: Culture, urine Bacteria identified Cx Nom (U) Culture exhibits no growth. [facility] Work Phone: Vital Signs Date Time Vital Sign Value Performing Clinician Facility 11-23-2024 17:28-0400 Body temperature 97.7 [degF] Dr. Padmini Carrasco MD Work Phone: [facility] 11-23-2024 17:28-0400 Diastolic blood pressure 65 mm[Hg] Dr. Padmini Carrasco MD Work Phone: [facility] 11-23-2024 17:28-0400 Heart rate 71 /min Dr. Padmini Carrasco MD Work Phone: [facility] 11-23-2024 17:28-0400 Respiratory rate 20 /min Dr. Padmini Carrasco MD Work Phone: [facility] 11-23-2024 17:28-0400 SaO2% (BldA) [Mass fraction] 100 % Dr. Padmini Carrasco MD Work Phone: 9(237)461-275172 [place] [address] 11-23-2024 17:28-0400 Systolic blood pressure 120 mm[Hg] Dr. Padmini Carrasco MD Work Phone: 4(876)163-594372 [place] [address] 11-23-2024 16:55-0400 Inhaled oxygen flow rate 2 L/min Dr. Padmini Carrasco MD Work Phone: 8(499)083-667903 [place] [address] 11-23-2024 11:22-0400 Body height 167.[address] Padmini Carrasco MD Work Phone: 3(250)573-855803 [place] [address] 11-21-2024 14:45-0400 Body temperature 97.6 [degF] Dr. Padmini Carrasco MD Work Phone: 4(477)289-253403 [place] [address] 11-21-2024 14:45-0400 Diastolic blood pressure 68 mm[Hg] Dr. Padmini Carrasco MD Work Phone: 8(333)107-647003 [place] [address] 11-21-2024 14:45-0400 Heart rate 78 /min Dr. Padmini Carrasco MD Work Phone: 1(061)166-945203 [place] [address] 11-21-2024 14:45-0400 Respiratory rate 16 /min Dr. Padmini Carrasco MD Work Phone: 7(170)001-865903 [place] [address] 11-21-2024 14:45-0400 SaO2% (BldA) [Mass fraction] 98 % Dr. Padmini Carrasco MD Work Phone: 7(044)693-123072 [place] [address] 11-21-2024 14:45-0400 Systolic blood pressure 119 mm[Hg] Dr. Padmini Carrasoc MD Work Phone: 6(199)295-273172 [place] [address] 11-20-2024 22:00-0400 Inhaled oxygen flow rate 2 L/min Dr. Padmini Carrasco MD Work Phone: 5(877)537-917603 [place] [address] 11-20-2024 15:03-0400 Body weight [address] Padmini Carrasco MD Work Phone: 5(467)846-704903 [place] [address] 11-19-2024 08:59-0400 Body mass index (BMI) [Ratio] 22.4 kg/m2 Dr. Padmini Carrasco MD Work Phone: [facility] 11-07-2024 22:45-0400 Diastolic blood pressure 111 mm[Hg] Dr. Padmini Carrasco MD Work Phone: [facility] 11-07-2024 22:45-0400 Heart rate 82 /min Dr. Padmini Carrasco MD Work Phone: [facility] 11-07-2024 22:45-0400 Respiratory rate 18 /min Dr. Padmini Carrasco MD Work Phone: [facility] 11-07-2024 22:45-0400 SaO2% (BldA) [Mass fraction] 94 % Dr. Padmini Carrasco MD Work Phone: 9(325)005-942072 [place] [address] 11-07-2024 22:45-0400 Systolic blood pressure 138 mm[Hg] Dr. Padmini Carrasco MD Work Phone: 3(110)652-057172 [place] [address] 11-07-2024 22:08-0400 Body height 167.[address] Padmini Carrasco MD Work Phone: [facility] 11-07-2024 22:08-0400 Body mass index (BMI) [Ratio] 23.2 kg/m2 Dr. Padmini Carrasco MD Work Phone: 5(766)690-908729 [address] 11-07-2024 22:08-0400 Body weight 65.[address] Padmini Carrasco MD Work Phone: 9(110)347-175572 [place] [address] 11-07-2024 22:02-0400 Body temperature 36 [degF] Dr. Padmini Carrasco MD Work Phone: [facility] 11-07-2024 22:02-0400 Inhaled oxygen flow rate 8 L/min Dr. Padmini Carrasco MD Work Phone: [facility] 10-19-2024 07:47-0400 Body temperature 97.9 [degF] [facility] Work Phone: [facility] 10-19-2024 07:47-0400 Diastolic blood pressure 75 mm[Hg] [facility] Work Phone: [facility] 10-19-2024 07:47-0400 Heart rate 60 /min [facility] Work Phone: [facility] 10-19-2024 07:47-0400 Respiratory rate 16 /min [facility] Work Phone: [facility] 10-19-2024 07:47-0400 SaO2% (BldA) [Mass fraction] 97 % [facility] Work Phone: [facility] 10-19-2024 07:47-0400 Systolic blood pressure 130 mm[Hg] [facility] Work Phone: [facility] 10-16-2024 09:51-0400 Body temperature 98.4 [degF] Luigi Banks MD Work Phone: [facility] 10-16-2024 09:51-0400 Diastolic blood pressure 69 mm[Hg] Luigi Banks MD Work Phone: [facility] 10-16-2024 09:51-0400 Heart rate 60 /min Luigi Banks MD Work Phone: [facility] 10-16-2024 09:51-0400 Respiratory rate 16 /min Luigi Banks MD Work Phone: [facility] 10-16-2024 09:51-0400 SaO2% (BldA) [Mass fraction] 99 % Luigi Banks MD Work Phone: [facility] Comment on above: RA 10-16-2024 09:51-0400 Systolic blood pressure 115 mm[Hg] Luigi Banks MD Work Phone: [facility] 10-15-2024 08:45-0400 Body mass index (BMI) [Ratio] 23.66 kg/m2 [facility] Work Phone: [facility] 10-15-2024 08:45-0400 Body temperature 98.2 [degF] [facility] Work Phone: [facility] 10-15-2024 08:45-0400 Body weight 66.22 kg [facility] Work Phone: [facility] 10-15-2024 08:45-0400 Diastolic blood pressure 72 mm[Hg] [facility] Work Phone: [facility] 10-15-2024 08:45-0400 Heart rate 60 /min [facility] Work Phone: [facility] 10-15-2024 08:45-0400 Respiratory rate 18 /min [facility] Work Phone: [facility] 10-15-2024 08:45-0400 SaO2% (BldA) [Mass fraction] 95 % [facility] Work Phone: [facility] 10-15-2024 08:45-0400 Systolic blood pressure 125 mm[Hg] [facility] Work Phone: [facility] 10-12-2024 10:20-0400 Body mass index (BMI) [Ratio] 23.82 kg/m2 Bob Otero Work Phone: [facility] 10-12-2024 10:20-0400 Body temperature 97.59 [degF] Bob Otero Work Phone: [facility] 10-12-2024 10:20-0400 Body weight 66.68 kg Bob Otero Work Phone: [facility] 10-12-2024 10:20-0400 Diastolic blood pressure 78 mm[Hg] Bob Otero Work Phone: [facility] 10-12-2024 10:20-0400 Heart rate 58 /min Bob Otero Work Phone: [facility] 10-12-2024 10:20-0400 SaO2% (BldA) [Mass fraction] 98 % Bob Otero Work Phone: [facility] 10-12-2024 10:20-0400 Systolic blood pressure 158 mm[Hg] Bob Otero Work Phone: [facility] 10-09-2024 09:54-0400 Body temperature 97.59 [degF] Luigi Banks MD Work Phone: [facility] 10-09-2024 09:54-0400 Diastolic blood pressure 63 mm[Hg] Luigi Banks MD Work Phone: [facility] 10-09-2024 09:54-0400 Heart rate 61 /min Luigi Banks MD Work Phone: [facility] 10-09-2024 09:54-0400 SaO2% (BldA) [Mass fraction] 97 % Luigi Banks MD Work Phone: [facility] 10-09-2024 09:54-0400 Systolic blood pressure 105 mm[Hg] Luigi Banks MD Work Phone: [facility] 10-02-2024 10:09-0400 Body temperature 98.2 [degF] Luigi Banks MD Work Phone: [facility] 10-02-2024 10:09-0400 Diastolic blood pressure 74 mm[Hg] Luigi Banks MD Work Phone: [facility] 10-02-2024 10:09-0400 Heart rate 59 /min Luigi Banks MD Work Phone: [facility] 10-02-2024 10:09-0400 Respiratory rate 14 /min Luigi Banks MD Work Phone: [facility] 10-02-2024 10:09-0400 SaO2% (BldA) [Mass fraction] 100 % Luigi Banks MD Work Phone: [facility] 10-02-2024 10:09-0400 Systolic blood pressure 148 mm[Hg] Luigi Banks MD Work Phone: [facility] 09-28-2024 07:30-0400 Body temperature 98.91 [degF] [facility] Work Phone: [facility] 09-28-2024 07:30-0400 Diastolic blood pressure 64 mm[Hg] [facility] Work Phone: [facility] 09-28-2024 07:30-0400 Heart rate 53 /min [facility] Work Phone: [facility] 09-28-2024 07:30-0400 SaO2% (BldA) [Mass fraction] 93 % [facility] Work Phone: [facility] 09-28-2024 07:30-0400 Systolic blood pressure 128 mm[Hg] [facility] Work Phone: [facility] 09-27-2024 10:24-0400 Diastolic blood pressure 63 mm[Hg] [facility] Work Phone: [facility] 09-27-2024 10:24-0400 Heart rate 54 /min [facility] Work Phone: [facility] 09-27-2024 10:24-0400 SaO2% (BldA) [Mass fraction] 92 % [facility] Work Phone: [facility] 09-27-2024 10:24-0400 Systolic blood pressure 125 mm[Hg] [facility] Work Phone: [facility] 09-25-2024 10:20-0400 Body temperature 97.5 [degF] Luigi Banks MD Work Phone: [facility] 09-25-2024 10:20-0400 Diastolic blood pressure 66 mm[Hg] Luigi Banks MD Work Phone: [facility] 09-25-2024 10:20-0400 Heart rate 56 /min Luigi Banks MD Work Phone: [facility] 09-25-2024 10:20-0400 SaO2% (BldA) [Mass fraction] 94 % Luigi Banks MD Work Phone: [facility] 09-25-2024 10:20-0400 Systolic blood pressure 121 mm[Hg] Luigi Banks MD Work Phone: [facility] 09-24-2024 11:00-0400 Body height 167.3 cm [facility] Work Phone: [facility] Comment on above: verified by Iris Diaz 09-24-2024 10:33-0400 Body mass index (BMI) [Ratio] 24.31 kg/m2 [facility] Work Phone: [facility] 09-24-2024 10:33-0400 Body temperature 96.91 [degF] [facility] Work Phone: [facility] 09-24-2024 10:33-0400 Body weight 68.04 kg [facility] Work Phone: [facility] 09-24-2024 10:33-0400 Diastolic blood pressure 74 mm[Hg] [facility] Work Phone: [facility] 09-24-2024 10:33-0400 Heart rate 54 /min [facility] Work Phone: [facility] 09-24-2024 10:33-0400 SaO2% (BldA) [Mass fraction] 94 % [facility] Work Phone: [facility] [facility] [place] 09-24-2024 10:33-0400 Systolic blood pressure 146 mm[Hg] Treatment Wstr Work Phone: [facility] [place] 09-21-2024 08:24-0400 Body height 167.[address] Padmini Carrasco MD Work Phone: [facility] 09-21-2024 08:24-0400 Body mass index (BMI) [Ratio] 25.8 kg/m2 Dr. Padmini Carrasco MD Work Phone: [facility] 09-21-2024 08:24-0400 Body temperature 96.7 [degF] Dr. Padmini Carrasco MD Work Phone: [facility] 09-21-2024 08:24-0400 Body weight 72.[address] Padmini Carrasco MD Work Phone: [facility] 09-21-2024 08:24-0400 Diastolic blood pressure 95 mm[Hg] Dr. Padmini Carrasco MD Work Phone: [facility] 09-21-2024 08:24-0400 Heart rate 53 /min Dr. Padmini Carrasco MD Work Phone: [facility] 09-21-2024 08:24-0400 Respiratory rate 14 /min Dr. Padmini Carrasco MD Work Phone: [facility] 09-21-2024 08:24-0400 SaO2% (BldA) [Mass fraction] 96 % Dr. Padmini Carrasco MD Work Phone: [facility] 09-21-2024 08:24-0400 Systolic blood pressure 154 mm[Hg] Dr. Padmini Carrasco MD Work Phone: [facility] 09-05-2024 14:11-0400 Body height 169 cm Lakeisha SendGridi DO Work Phone: [facility] [place] 09-05-2024 14:11-0400 Body mass index (BMI) [Ratio] 24.22 kg/m2 Lakeisha SendGridi DO Work Phone: [facility] [place] 09-05-2024 14:11-0400 Body temperature 97.7 [degF] Lakeisha SendGridi DO Work Phone: [facility] [place] 09-05-2024 14:11-0400 Body weight 69.17 kg Lakeisha Masci DO Work Phone: [facility] [place] 09-05-2024 14:11-0400 Diastolic blood pressure 69 mm[Hg] Lakeisha Masci DO Work Phone: [facility] [place] 09-05-2024 14:11-0400 Heart rate 75 /min Lakeisha Masci DO Work Phone: [facility] [place] 09-05-2024 14:11-0400 SaO2% (BldA) [Mass fraction] 93 % Lakeisha Masci DO Work Phone: [facility] [place] 09-05-2024 14:11-0400 Systolic blood pressure 145 mm[Hg] Lakeisha Masci DO Work Phone: [facility] [place] 08-30-2024 08:13-0400 Body height 167.[address] Padmini Carrasco MD Work Phone: [facility] 08-30-2024 08:13-0400 Body mass index (BMI) [Ratio] 24.8 kg/m2 Dr. Padmini Carrasco MD Work Phone: [facility] 08-30-2024 08:13-0400 Body weight 69.[address] Padmini Carrasco MD Work Phone: [facility] 08-30-2024 08:13-0400 Diastolic blood pressure 61 mm[Hg] Dr. Padmini Carrasco MD Work Phone: [facility] 08-30-2024 08:13-0400 Heart rate 54 /min Dr. Padmini Carrasco MD Work Phone: [facility] 08-30-2024 08:13-0400 Respiratory rate 16 /min Dr. Padmini Carrasco MD Work Phone: [facility] 08-30-2024 08:13-0400 SaO2% (BldA) [Mass fraction] 93 % Dr. Padmini Carrasco MD Work Phone: [facility] 08-30-2024 08:13-0400 Systolic blood pressure 99 mm[Hg] Dr. Padmini Carrasco MD Work Phone: [facility] 08-29-2024 13:08-0400 Body mass index (BMI) [Ratio] 25.19 kg/m2 Stacy Gauthier MD Work Phone: [facility] [place] 08-29-2024 13:08-0400 Body weight 70.76 kg Stacy Gauthier MD Work Phone: [facility] [place] 08-16-2024 10:19-0400 Body height 167.6 cm Pst 1 [facility] [place] 08-16-2024 10:19-0400 Body mass index (BMI) [Ratio] 25.26 kg/m2 Pst 1 [facility] [place] 08-16-2024 10:19-0400 Body temperature 96.8 [degF] Pst 1 [facility] 08-16-2024 10:19-0400 Body weight 70.94 kg Pst 1 [facility] [place] 08-16-2024 10:19-0400 Diastolic blood pressure 82 mm[Hg] Pst 1 [facility] [place] 08-16-2024 10:19-0400 Heart rate 53 /min Pst 1 [facility] [place] 08-16-2024 10:19-0400 Respiratory rate 16 /min Pst 1 [facility] 08-16-2024 10:19-0400 SaO2% (BldA) [Mass fraction] 99 % Pst 1 [facility] [place] 08-16-2024 10:19-0400 Systolic blood pressure 138 mm[Hg] Pst 1 [facility] [place] 08-02-2024 14:06-0400 Body height 167.6 cm Stacy Gauthier MD Work Phone: [facility] [place] 08-02-2024 14:06-0400 Body mass index (BMI) [Ratio] 25.19 kg/m2 Stacy Gauthier MD Work Phone: [facility] [place] 08-02-2024 14:06-0400 Body weight 70.76 kg Stacy Gauthier MD Work Phone: [facility] [place] 08-02-2024 14:06-0400 Heart rate 65 /min Stacy Gauthier MD Work Phone: [facility] [place] 08-02-2024 14:06-0400 SaO2% (BldA) [Mass fraction] 91 % Stacy Gauthier MD Work Phone: [facility] [place] 07-26-2024 09:00-0400 Body height 167.6 cm Codey Christianson MD Work Phone: [facility] [place] 07-26-2024 09:00-0400 Body mass index (BMI) [Ratio] 25.3 kg/m2 Codey Christianson MD Work Phone: [facility] [place] 07-26-2024 09:00-0400 Body temperature 97.3 [degF] Codey Christianson MD Work Phone: [facility] [place] 07-26-2024 09:00-0400 Body weight 71.1 kg Codey Christianson MD Work Phone: [facility] [place] 07-26-2024 09:00-0400 Diastolic blood pressure 67 mm[Hg] Codey Christianson MD Work Phone: [facility] [place] 07-26-2024 09:00-0400 Heart rate 50 /min Codey Christianson MD Work Phone: [facility] [place] Comment on above: md notified 07-26-2024 09:00-0400 Respiratory rate 18 /min Codey Christianson MD Work Phone: [facility] [place] 07-26-2024 09:00-0400 SaO2% (BldA) [Mass fraction] 97 % Codey Christianson MD Work Phone: [facility] [place] 07-26-2024 09:00-0400 Systolic blood pressure 150 mm[Hg] Codey Christianson MD Work Phone: [facility] [place] 06-28-2024 12:15-0400 Body temperature 98.4 [degF] Dr. Padmini Carrasco MD Work Phone: [facility] 06-28-2024 12:15-0400 Diastolic blood pressure 76 mm[Hg] Dr. Padmini Carrasco MD Work Phone: [facility] 06-28-2024 12:15-0400 Heart rate 64 /min Dr. Padmini Carrasco MD Work Phone: [facility] 06-28-2024 12:15-0400 Inhaled oxygen flow rate 2 L/min Dr. Padmini Carrasco MD Work Phone: [facility] 06-28-2024 12:15-0400 Respiratory rate 18 /min Dr. Padmini Carrasco MD Work Phone: [facility] 06-28-2024 12:15-0400 SaO2% (BldA) [Mass fraction] 94 % Dr. Padmini Carrasco MD Work Phone: [facility] 06-28-2024 12:15-0400 Systolic blood pressure 152 mm[Hg] Dr. Padmini Carrasco MD Work Phone: 4(946)007-394972 [place] [address] 06-27-2024 15:48-0400 Body height 167.[address] Padmini Carrasco MD Work Phone: 2(918)043-904703 [place] [address] 06-27-2024 15:48-0400 Body mass index (BMI) [Ratio] 25.6 kg/m2 Dr. Padmini Carrasco MD Work Phone: 3(576)839-400703 [place] [address] 06-27-2024 15:48-0400 Body weight [address] Padmini Carrasco MD Work Phone: 3(753)989-005803 [place] [address] 06-27-2024 07:38-0400 Body temperature 97.8 [degF] Dr. Padmini Carrasco MD Work Phone: 9(533)089-878003 [place] [address] 06-27-2024 07:38-0400 Diastolic blood pressure 73 mm[Hg] Dr. Padmini Carrasco MD Work Phone: 0(304)823-485803 [place] [address] 06-27-2024 07:38-0400 Heart rate 56 /min Dr. Padmini Carrasco MD Work Phone: 4(169)353-013403 [place] [address] 06-27-2024 07:38-0400 Respiratory rate 16 /min Dr. Padmini Carrasco MD Work Phone: 8(388)435-452803 [place] [address] 06-27-2024 07:38-0400 SaO2% (BldA) [Mass fraction] 97 % Dr. Padmini Carrasco MD Work Phone: 6(943)836-529803 [place] [address] 06-27-2024 07:38-0400 Systolic blood pressure 173 mm[Hg] Dr. Padmini Carrasco MD Work Phone: 4(230)778-567403 [place] [address] 06-27-2024 06:57-0400 Body height 167.[address] Padmini Carrasco MD Work Phone: 1(525)292-833103 [place] [address] 06-27-2024 06:57-0400 Body mass index (BMI) [Ratio] 25.6 kg/m2 Dr. Padmini Carrasco MD Work Phone: [facility] 06-27-2024 06:57-0400 Body weight [address] Padmini Carrasco MD Work Phone: 1(467)021-846003 [place] [address] 06-19-2024 15:38-0400 Diastolic blood pressure 72 mm[Hg] Dr. Padmini Carrasco MD Work Phone: 3(833)623-657003 [place] [address] 06-19-2024 15:38-0400 Systolic blood pressure 146 mm[Hg] Dr. Padmini Carrasco MD Work Phone: 0(494)697-290603 [place] [address] 06-19-2024 06:17-0400 Body height 167.[address] Padmini Carrasco MD Work Phone: 9(191)239-008303 [place] [address] 06-19-2024 06:17-0400 Body mass index (BMI) [Ratio] 25.7 kg/m2 Dr. Padmini Carrasco MD Work Phone: 5(274)841-080403 [place] [address] 06-19-2024 06:17-0400 Body weight 72.[address] Padmini Carrasco MD Work Phone: 9(508)459-893503 [place] [address] 06-19-2024 06:17-0400 Diastolic blood pressure 77 mm[Hg] Dr. Padmini Carrasco MD Work Phone: 4(171)897-629703 [place] [address] 06-19-2024 06:17-0400 Heart rate 52 /min Dr. Padmini Carrasco MD Work Phone: 6(424)725-592603 [place] [address] 06-19-2024 06:17-0400 Respiratory rate 18 /min Dr. Padmini Carrasco MD Work Phone: 0(152)960-180303 [place] [address] 06-19-2024 06:17-0400 SaO2% (BldA) [Mass fraction] 94 % Dr. Padmini Carrasco MD Work Phone: 1(245)417-135503 [place] [address] 06-19-2024 06:17-0400 Systolic blood pressure 163 mm[Hg] Dr. Padmini Carrasco MD Work Phone: 3(212)852-820803 [place] [address] 05-17-2024 00:50-0400 Body temperature 97.9 [degF] Dr. Padmini Carrasco MD Work Phone: [facility] 05-17-2024 00:50-0400 Diastolic blood pressure 78 mm[Hg] Dr. Padmini Carrasco MD Work Phone: [facility] 05-17-2024 00:50-0400 Heart rate 66 /min Dr. Padmini Carrasco MD Work Phone: 1(855)075-134872 [place] [address] 05-17-2024 00:50-0400 Respiratory rate 20 /min Dr. Padmini Carrasco MD Work Phone: 0(452)116-630829 [address] 05-17-2024 00:50-0400 SaO2% (BldA) [Mass fraction] 95 % Dr. Padmini Carrasco MD Work Phone: 7(512)660-168172 [place] [address] 05-17-2024 00:50-0400 Systolic blood pressure 164 mm[Hg] Dr. Padmini Carrasco MD Work Phone: 2(631)140-454572 [place] [address] 05-16-2024 22:09-0400 Body height 167.[address] Padmini Carrasco MD Work Phone: 2(728)216-530903 [place] [address] 05-16-2024 22:09-0400 Body mass index (BMI) [Ratio] 25.9 kg/m2 Dr. Padmini Carrasco MD Work Phone: 5(366)053-035403 [place] [address] 05-16-2024 22:09-0400 Body weight 73.[address] Padmini Carrasco MD Work Phone: 4(698)314-784903 [place] [address] 03-23-2024 08:03-0500 Body mass index (BMI) [Ratio] 25.8 kg/m2 Dr. Padmini Carrasco MD Work Phone: 4(638)839-310903 [place] [address] 03-23-2024 08:03-0500 Body temperature 97.2 [degF] Dr. Padmini Carrasco MD Work Phone: 2(952)172-898503 [place] [address] 03-23-2024 08:03-0500 Body weight 72.[address] Padmini Carrasco MD Work Phone: 6(693)701-195772 [place] [address] 03-23-2024 08:03-0500 Diastolic blood pressure 87 mm[Hg] Dr. Padmini Carrasco MD Work Phone: [facility] 03-23-2024 08:03-0500 Heart rate 57 /min Dr. Padmini Carrasco MD Work Phone: [facility] 03-23-2024 08:03-0500 Respiratory rate 18 /min Dr. Padmini Carrasco MD Work Phone: [facility] 03-23-2024 08:03-0500 SaO2% (BldA) [Mass fraction] 98 % Dr. Padmini Carrasco MD Work Phone: [facility] 03-23-2024 08:03-0500 Systolic blood pressure 145 mm[Hg] Dr. Padmini Carrasco MD Work Phone: [facility] 01-18-2024 14:11-0500 Body temperature 97.9 [degF] Dr. Padmini Carrasco MD Work Phone: [facility] 01-18-2024 14:11-0500 Diastolic blood pressure 69 mm[Hg] Dr. Padmini Carrasco MD Work Phone: [facility] 01-18-2024 14:11-0500 Heart rate 53 /min Dr. Padmini Carrasco MD Work Phone: [facility] 01-18-2024 14:11-0500 Respiratory rate 16 /min Dr. Padmini Carrasco MD Work Phone: [facility] 01-18-2024 14:11-0500 SaO2% (BldA) [Mass fraction] 94 % Dr. Padmini Carrasco MD Work Phone: [facility] 01-18-2024 14:11-0500 Systolic blood pressure 160 mm[Hg] Dr. Padmini Carrasco MD Work Phone: [facility] 01-18-2024 10:01-0500 Body height 167.[address] Padmini Carrasco MD Work Phone: [facility] 01-18-2024 10:01-0500 Body mass index (BMI) [Ratio] 25.2 kg/m2 Dr. Padmini Carrasco MD Work Phone: [facility] 01-18-2024 10:01-0500 Body weight [address] Padmini Carrasco MD Work Phone: 0(509)258-324272 [place] [address] 02-28-2023 10:06-0500 Diastolic blood pressure 80 mm[Hg] Dr. Ezekiel Carrasco Work Phone: 4(501)705-397429 [address] 02-28-2023 10:06-0500 Systolic blood pressure 164 mm[Hg] Dr. Ezekiel Carrasco Work Phone: 3(031)529-727203 [place] [address] 02-28-2023 09:35-0500 Body height 167.[address] Ezekiel Carrasco Work Phone: 6(991)555-836529 [address] 02-28-2023 09:35-0500 Body mass index (BMI) [Ratio] 24.5 kg/m2 Dr. Ezekiel Carrasco Work Phone: 6(408)549-679272 [place] [address] 02-28-2023 09:35-0500 Body weight 68.[address] Ezekiel Carrasco Work Phone: [facility] 02-28-2023 09:35-0500 Heart rate 54 /min Dr. Ezekiel Carrasco Work Phone: [facility] 02-28-2023 09:35-0500 Respiratory rate 18 /min Dr. Ezekiel Carrasco Work Phone: [facility] 02-28-2023 09:35-0500 SaO2% (BldA) [Mass fraction] 96 % Dr. Ezekiel Carrasco Work Phone: [facility] 01-27-2023 07:54-0500 Body mass index (BMI) [Ratio] 23.9 kg/m2 Dr. Ezekiel Carrasco Work Phone: [facility] 01-27-2023 07:54-0500 Body temperature 98 [degF] Dr. Ezekiel Carrasco Work Phone: [facility] 01-27-2023 07:54-0500 Body weight 67.[address] Ezekiel Carrasco Work Phone: [facility] 01-27-2023 07:54-0500 Diastolic blood pressure 77 mm[Hg] Dr. Ezekiel Carrasco Work Phone: [facility] 01-27-2023 07:54-0500 Heart rate 55 /min Dr. Ezekiel Carrasco Work Phone: [facility] 01-27-2023 07:54-0500 Respiratory rate 18 /min Dr. Ezekiel Carrasco Work Phone: [facility] 01-27-2023 07:54-0500 SaO2% (BldA) [Mass fraction] 99 % Dr. Ezekiel Carrasco Work Phone: [facility] 01-27-2023 07:54-0500 Systolic blood pressure 183 mm[Hg] Dr. Ezekiel Carrasco Work Phone: [facility] 12-27-2022 15:13-0500 Body temperature 98.2 [degF] Dr. Ezekiel Carrasco Work Phone: [facility] 12-27-2022 15:13-0500 Body weight 65.[address] Ezekiel Carrasco Work Phone: [facility] 12-27-2022 15:13-0500 Diastolic blood pressure 68 mm[Hg] Dr. Ezekiel Carrasco Work Phone: [facility] 12-27-2022 15:13-0500 Heart rate 58 /min Dr. Ezekiel Carrasco Work Phone: [facility] 12-27-2022 15:13-0500 Respiratory rate 16 /min Dr. Ezekiel Carrasco Work Phone: [facility] 12-27-2022 15:13-0500 SaO2% (BldA) [Mass fraction] 98 % Dr. Ezekiel Carrasco Work Phone: [facility] 12-27-2022 15:13-0500 Systolic blood pressure 151 mm[Hg] Dr. Ezekiel Carrasco Work Phone: [facility] 07-28-2022 10:32-0400 Body height 167.[address] Ezekiel Carrasco Work Phone: [facility] 07-28-2022 10:31-0400 Body mass index (BMI) [Ratio] 23.3 kg/m2 Dr. Ezekiel Carrasco Work Phone: 6(323)343-628929 [address] 07-28-2022 10:31-0400 Body temperature 97.6 [degF] Dr. Ezekiel Carrasco Work Phone: 5(847)690-596429 [address] 07-28-2022 10:31-0400 Body weight 65.[address] Ezekiel Carrasco Work Phone: 7(943)336-757572 [place] [address] 07-28-2022 10:31-0400 Diastolic blood pressure 80 mm[Hg] Dr. Ezekiel Carrasco Work Phone: 7(944)452-313072 [place] [address] 07-28-2022 10:31-0400 Heart rate 84 /min Dr. Ezekiel Carrasco Work Phone: 8(145)280-289972 [place] [address] 07-28-2022 10:31-0400 Respiratory rate 18 /min Dr. Ezekiel Carrasco Work Phone: [facility] 07-28-2022 10:31-0400 SaO2% (BldA) [Mass fraction] 95 % Dr. Ezekiel Carrasco Work Phone: [facility] 07-28-2022 10:31-0400 Systolic blood pressure 138 mm[Hg] Dr. Ezekiel Carrasco Work Phone: [facility] 06-04-2022 08:37-0400 Body temperature 95.6 [degF] Dr. Ezekiel Carrasco Work Phone: 8(572)187-300172 [place] [address] 06-04-2022 08:37-0400 Diastolic blood pressure 74 mm[Hg] Dr. Ezekiel Carrasco Work Phone: [facility] 06-04-2022 08:37-0400 Heart rate 69 /min Dr. Ezekiel Carrasco Work Phone: [facility] 06-04-2022 08:37-0400 Respiratory rate 16 /min Dr. Ezekiel Carrasco Work Phone: [facility] 06-04-2022 08:37-0400 Systolic blood pressure 136 mm[Hg] Dr. Ezekiel Carrasco Work Phone: [facility] 05-21-2022 08:08-0400 Body temperature 97.1 [degF] Dr. Ezekiel Carrasco Work Phone: [facility] 05-21-2022 08:08-0400 Diastolic blood pressure 71 mm[Hg] Dr. Ezekiel Carrasco Work Phone: [facility] 05-21-2022 08:08-0400 Heart rate 73 /min Dr. Ezekiel Carrasco Work Phone: [facility] 05-21-2022 08:08-0400 Respiratory rate 16 /min Dr. Ezekiel Carrasco Work Phone: [facility] 05-21-2022 08:08-0400 Systolic blood pressure 133 mm[Hg] Dr. Ezekiel Carrasco Work Phone: [facility] 05-17-2022 14:02-0400 Body height 167.[address] Ezekiel Carrasco Work Phone: [facility] 05-17-2022 14:02-0400 Body mass index (BMI) [Ratio] 24.5 kg/m2 Dr. Ezekiel Carrasco Work Phone: [facility] 05-17-2022 14:02-0400 Body weight 68.[address] Ezekiel Carrasco Work Phone: [facility] 05-17-2022 14:02-0400 Diastolic blood pressure 74 mm[Hg] Dr. Ezekiel Carrasco Work Phone: [facility] 05-17-2022 14:02-0400 Heart rate 58 /min Dr. Ezekiel Carrasco Work Phone: [facility] 05-17-2022 14:02-0400 Respiratory rate 18 /min Dr. Ezekiel Carrasco Work Phone: [facility] 05-17-2022 14:02-0400 SaO2% (BldA) [Mass fraction] 96 % Dr. Ezekiel Carrasco Work Phone: [facility] 05-17-2022 14:02-0400 Systolic blood pressure 134 mm[Hg] Dr. Ezekiel Carrasco Work Phone: [facility] 05-14-2022 08:07-0400 Body temperature 96.4 [degF] Dr. Ezekiel Carrasco Work Phone: [facility] 05-14-2022 08:07-0400 Diastolic blood pressure 74 mm[Hg] Dr. Ezekiel Carrasco Work Phone: [facility] 05-14-2022 08:07-0400 Heart rate 72 /min Dr. Ezekiel Carrasco Work Phone: [facility] 05-14-2022 08:07-0400 Respiratory rate 18 /min Dr. Ezekiel Carrasco Work Phone: [facility] 05-14-2022 08:07-0400 Systolic blood pressure 129 mm[Hg] Dr. Ezekiel Carrasco Work Phone: [facility] 05-11-2022 12:39-0400 Body weight 66.[address] Ezekiel Carrasco Work Phone: [facility] 05-11-2022 12:39-0400 Heart rate 80 /min Dr. Ezekiel Carrasco Work Phone: [facility] 05-11-2022 12:39-0400 SaO2% (BldA) [Mass fraction] 96 % Dr. Ezekiel Carrasco Work Phone: [facility] 05-08-2022 00:43-0400 Inhaled oxygen flow rate 2 L/min Dr. Ezekiel Carrasco Work Phone: [facility] 05-07-2022 10:14-0400 Body temperature 96.6 [degF] Dr. Ezekiel Carrasco Work Phone: [facility] 05-07-2022 10:14-0400 Diastolic blood pressure 66 mm[Hg] Dr. Ezekiel Carrasco Work Phone: [facility] 05-07-2022 10:14-0400 Heart rate 67 /min Dr. Ezekiel Carrasco Work Phone: [facility] 05-07-2022 10:14-0400 Respiratory rate 16 /min Dr. Ezekiel Carrasco Work Phone: [facility] 05-07-2022 10:14-0400 Systolic blood pressure 129 mm[Hg] Dr. Ezekiel Carrasco Work Phone: [facility] 04-16-2022 14:11-0500 Inhaled oxygen flow rate 2 L/min Dr. Ezekiel Carrasco Work Phone: [facility] 03-30-2022 07:45-0500 Body height 167.[address] Ezekiel Carrasco Work Phone: [facility] 03-30-2022 07:45-0500 Body mass index (BMI) [Ratio] 23.7 kg/m2 Dr. Ezekiel Carrasco Work Phone: [facility] 03-30-2022 07:45-0500 Body temperature 97.6 [degF] Dr. Ezekiel Carrasco Work Phone: [facility] 03-30-2022 07:45-0500 Body weight 66.[address] Ezekiel Carrasco Work Phone: [facility] 03-30-2022 07:45-0500 Diastolic blood pressure 87 mm[Hg] Dr. Ezekiel Carrasco Work Phone: [facility] 03-30-2022 07:45-0500 Heart rate 107 /min Dr. Ezekiel Carrasco Work Phone: [facility] 03-30-2022 07:45-0500 Inhaled oxygen flow rate 2 L/min Dr. Ezekiel Carrasco Work Phone: [facility] 03-30-2022 07:45-0500 Respiratory rate 18 /min Dr. Ezekiel Carrasco Work Phone: [facility] 03-30-2022 07:45-0500 SaO2% (BldA) [Mass fraction] 99 % Dr. Ezekiel Carrasco Work Phone: [facility] 03-30-2022 07:45-0500 Systolic blood pressure 142 mm[Hg] Dr. Ezekiel Carrasco Work Phone: [facility] 03-29-2022 14:15-0500 Body mass index (BMI) [Ratio] 23.7 kg/m2 Dr. Ezekiel Carrasco Work Phone: [facility] 03-29-2022 14:15-0500 Body weight 66.[address] Ezekiel Carrasco Work Phone: [facility] 03-29-2022 14:15-0500 Diastolic blood pressure 64 mm[Hg] Dr. Ezekiel Carrasco Work Phone: [facility] 03-29-2022 14:15-0500 Heart rate 76 /min Dr. Ezekiel Carrasco Work Phone: [facility] 03-29-2022 14:15-0500 Inhaled oxygen flow rate 2 L/min Dr. Ezekiel Carrasco Work Phone: [facility] 03-29-2022 14:15-0500 Respiratory rate 20 /min Dr. Ezekiel Carrasco Work Phone: [facility] 03-29-2022 14:15-0500 SaO2% (BldA) [Mass fraction] 95 % Dr. Ezekiel Carrasco Work Phone: [facility] 03-29-2022 14:15-0500 Systolic blood pressure 107 mm[Hg] Dr. Ezekiel Carrasco Work Phone: [facility] 03-23-2022 14:03-0500 Body height 167.[address] Ezekiel Carrasco Work Phone: [facility] 03-23-2022 14:03-0500 Body mass index (BMI) [Ratio] 26.6 kg/m2 Dr. Ezekiel Carrasco Work Phone: [facility] 03-23-2022 14:03-0500 Body weight 74.[address] Ezekiel Carrasco Work Phone: 3(474)496-291629 [address] 03-23-2022 14:03-0500 Diastolic blood pressure 73 mm[Hg] Dr. Ezekiel Carrasco Work Phone: [facility] 03-23-2022 14:03-0500 Heart rate 72 /min Dr. Ezekiel Carrasco Work Phone: [facility] 03-23-2022 14:03-0500 Respiratory rate 20 /min Dr. Ezekiel Carrasco Work Phone: [facility] 03-23-2022 14:03-0500 SaO2% (BldA) [Mass fraction] 94 % Dr. Ezekiel Carrasco Work Phone: [facility] 03-23-2022 14:03-0500 Systolic blood pressure 143 mm[Hg] Dr. Ezekiel Carrasco Work Phone: [facility] 03-22-2022 16:32-0500 Body mass index (BMI) [Ratio] 26.4 kg/m2 Dr. Ezekiel Carrasco Work Phone: [facility] 03-22-2022 16:32-0500 Body temperature 97.8 [degF] Dr. Ezekiel Carrasco Work Phone: [facility] 03-22-2022 16:32-0500 Body weight 74.[address] Ezekiel Carrasco Work Phone: [facility] 03-22-2022 16:32-0500 Diastolic blood pressure 87 mm[Hg] Dr. Ezekiel Carrasco Work Phone: [facility] 03-22-2022 16:32-0500 Heart rate 93 /min Dr. Ezekiel Carrasco Work Phone: [facility] 03-22-2022 16:32-0500 Inhaled oxygen flow rate 2 L/min Dr. Ezekiel Carrasco Work Phone: [facility] 03-22-2022 16:32-0500 Respiratory rate 20 /min Dr. Ezekiel Carrasco Work Phone: [facility] 03-22-2022 16:32-0500 SaO2% (BldA) [Mass fraction] 95 % Dr. Ezekiel Carrasco Work Phone: [facility] 03-22-2022 16:32-0500 Systolic blood pressure 145 mm[Hg] Dr. Ezekiel Carrasco Work Phone: [facility] 03-04-2022 16:23-0500 Inhaled oxygen flow rate 2 L/min Dr. Ezekiel Carrasco Work Phone: [facility] 03-04-2022 16:00-0500 Body temperature 98 [degF] Dr. Ezekiel Carrasco Work Phone: [facility] 03-04-2022 16:00-0500 Diastolic blood pressure 84 mm[Hg] Dr. Ezekiel Carrasco Work Phone: [facility] 03-04-2022 16:00-0500 Heart rate 90 /min Dr. Ezekiel Carrasco Work Phone: [facility] 03-04-2022 16:00-0500 SaO2% (BldA) [Mass fraction] 94 % Dr. Ezekiel Carrasco Work Phone: [facility] 03-04-2022 16:00-0500 Systolic blood pressure 129 mm[Hg] Dr. Ezekiel Carrasco Work Phone: 3(593)055-381929 [address] 03-04-2022 13:43-0500 SaO2% (BldA) [Mass fraction] 98 % Dr. Ezekiel Carrasco Work Phone: 0(282)829-254472 [place] [address] 03-04-2022 11:47-0500 Heart rate 83 /min Dr. Ezekiel Carrasco Work Phone: 4(476)158-738029 [address] 03-04-2022 11:47-0500 Respiratory rate 18 /min Dr. Ezekiel Carrasco Work Phone: 2(161)005-069503 [place] [address] 03-04-2022 10:00-0500 Body temperature 97.6 [degF] Dr. Ezekiel Carrasco Work Phone: 5(903)460-899303 [place] [address] 03-04-2022 10:00-0500 Diastolic blood pressure 89 mm[Hg] Dr. Ezekiel Carrasco Work Phone: 7(714)274-660072 [place] [address] 03-04-2022 10:00-0500 Systolic blood pressure 139 mm[Hg] Dr. Ezekiel Carrasco Work Phone: 5(888)108-160572 [place] [address] 03-03-2022 13:50-0500 Body height 167.[address] Ezekiel Carrasco Work Phone: 3(641)862-949272 [place] [address] 03-03-2022 13:50-0500 Body weight 69.[address] Ezekiel Carrasco Work Phone: 5(152)217-467572 [place] [address] 03-03-2022 02:55-0500 Inhaled oxygen concentration 4 % Dr. Ezekiel Carrasco Work Phone: 5(248)534-502272 [place] [address] 03-02-2022 16:29-0500 Body mass index (BMI) [Ratio] 24.8 kg/m2 Dr. Ezekiel Carrasco Work Phone: 4(716)391-074972 [place] [address] 03-02-2022 16:06-0500 Body temperature 97.5 [degF] Dr. Ezekiel Carrasco Work Phone: [facility] 03-02-2022 16:06-0500 Diastolic blood pressure 88 mm[Hg] Dr. Ezekiel Carrasco Work Phone: [facility] 03-02-2022 16:06-0500 Heart rate 84 /min Dr. Ezekiel Carrasco Work Phone: [facility] 03-02-2022 16:06-0500 Inhaled oxygen flow rate 3 L/min Dr. Ezekiel Carrasco Work Phone: [facility] 03-02-2022 16:06-0500 Respiratory rate 26 /min Dr. Ezekiel Carrasco Work Phone: [facility] 03-02-2022 16:06-0500 SaO2% (BldA) [Mass fraction] 92 % Dr. Ezekiel Carrasco Work Phone: [facility] 03-02-2022 16:06-0500 Systolic blood pressure 125 mm[Hg] Dr. Ezekiel Carrasco Work Phone: [facility] 03-02-2022 09:04-0500 Body height 167.[address] Ezekiel Carrasco Work Phone: [facility] 03-02-2022 09:04-0500 Body mass index (BMI) [Ratio] 24.8 kg/m2 Dr. Ezekiel Carrasco Work Phone: [facility] 03-02-2022 09:04-0500 Body weight 69.[address] Ezekiel Carrasco Work Phone: [facility] 01-06-2022 08:31-0500 Body height 167.[address] Ezekiel Carrasco Work Phone: [facility] Work Phone: 01-06-2022 08:24-0500 Body mass index (BMI) [Ratio] 27.9 kg/m2 Dr. zEekiel Carrasco Work Phone: [facility] 01-06-2022 08:24-0500 Body weight 78.[address] Ezekiel Carrasco Work Phone: [facility] 01-06-2022 08:24-0500 Diastolic blood pressure 78 mm[Hg] Dr. Ezekiel Carrasco Work Phone: [facility] 01-06-2022 08:24-0500 Heart rate 71 /min Dr. Ezekiel Carrasco Work Phone: [facility] 01-06-2022 08:24-0500 Respiratory rate 18 /min Dr. Ezekiel Carrasco Work Phone: [facility] 01-06-2022 08:24-0500 SaO2% (BldA) [Mass fraction] 94 % Dr. Ezekiel Carrasco Work Phone: [facility] 01-06-2022 08:24-0500 Systolic blood pressure 133 mm[Hg] Dr. Ezekiel Carrasco Work Phone: [facility] 12-28-2021 12:34-0500 Diastolic blood pressure 86 mm[Hg] [facility] 12-28-2021 12:34-0500 Heart rate 85 /min [facility] 12-28-2021 12:34-0500 Respiratory rate 18 /min [facility] 12-28-2021 12:34-0500 SaO2% (BldA) [Mass fraction] 97 % [facility] 12-28-2021 12:34-0500 Systolic blood pressure 175 mm[Hg] [facility] 12-28-2021 09:44-0500 Body height 167.64 cm [facility] Work Phone: 12-28-2021 09:44-0500 Body mass index (BMI) [Ratio] 25.9 kg/m2 [facility] 12-28-2021 09:44-0500 Body temperature 96.1 [degF] [facility] 12-28-2021 09:44-0500 Body weight 72.9 kg [facility] 07-07-2021 08:23-0400 Body height 167.[address] Ezekiel Carrasco Work Phone: [facility] Work Phone: 07-07-2021 08:23-0400 Body weight 80.[address] Ezekiel Carrasco Work Phone: [facility] Work Phone: 07-07-2021 08:23-0400 Diastolic blood pressure 83 mm[Hg] Dr. Ezekiel Carrasco Work Phone: [facility] Work Phone: 07-07-2021 08:23-0400 Heart rate 77 /min Dr. Ezekiel Carrasco Work Phone: [facility] Work Phone: 07-07-2021 08:23-0400 Respiratory rate 18 /min Dr. Ezekiel Carrasco Work Phone: [facility] Work Phone: 07-07-2021 08:23-0400 SaO2% (BldA) [Mass fraction] 96 % Dr. Ezekiel Carrasco Work Phone: [facility] Work Phone: 07-07-2021 08:23-0400 Systolic blood pressure 142 mm[Hg] Dr. Ezekiel Carrasco Work Phone: [facility] Work Phone: 09-18-2020 08:58-0400 Body mass index (BMI) [Ratio] 31.6 kg/m2 Dr. Ezekiel Carrasco Work Phone: [facility] Work Phone: Encounters Encounter Date Encounter Type Care Provider Facility Start: 12-18-2024 Emergency department patient visit Padmini Carrasco Facility:[facility] Start: 12-18-2024 ambulatory Padmini Leroy lity:[facility] Start: 12-17-2024 ambulatory Padmini Leroy lity:[facility] Start: 12-12-2024 End: 12-12-2024 ambulatory PADMINI CARRASCO Facility:[facility] Start: 12-11-2024 ambulatory Padmini Leroy lity:[facility] Start: 12-10-2024 End: 12-10-2024 ambulatory PADMINI CARRASCO Facility:[facility] Start: 11-23-2024 End: 12-06-2024 Evaluation and management of inpatient LISA GONZALEZ Facility:[facility] Start: 11-23-2024 Dr. Pradip ehad [facility] Work Phone: Start: 11-23-2024 End: 11-23-2024 Dr. Juan Marie DO -Emergency [facility] t Work Phone: Start: 11-23-2024 End: 11-23-2024 Emergency department patient visit Dr. Padmini Carrasco MD Work Phone: -Emergency Department Start: 11-23-2024 End: 11-23-2024 ambulatory PADMINI CARRASCO Facility:[facility] Start: 11-20-2024 Dr. Pradip head DO [facility] Work Phone: Start: 11-19-2024 Dr. Pradip head DO [facility] Work Phone: Start: 11-19-2024 Kamlesh Floyd DO -[facility] Start: 11-18-2024 ambulatory Padmini Leroy lity:[facility] Start: 11-18-2024 End: 11-21-2024 Evaluation and management of inpatient Dr. Padmini Carrasco MD Work Phone: -Progressive Care Unit Start: 11-18-2024 End: 11-21-2024 Dr. Pradip Pichardo DO -Progressive Care Unit Work Phone: Start: 11-15-2024 End: 11-15-2024 Dr. Padmini Carrasco MD -[facility] Start: 11-15-2024 End: 11-15-2024 ambulatory Padmini Carrasco Facility:[facility] Start: 11-07-2024 End: 11-11-2024 Evaluation and management of inpatient KATARINA MOORE Facility:[facility] Start: 11-07-2024 End: 11-07-2024 Evaluation and management of inpatient Kamlesh Floyd DO -Intensive Care Unit Work Phone: Start: 11-07-2024 Non-patient / Non-visit Dr. Suzanne Medley MD -[facility] Work Phone: Start: 11-07-2024 End: 11-07-2024 Kamleshcassidy Floyd DO -Intensive Care Unit Work Phone: Start: 11-07-2024 End: 11-07-2024 Admission to same day surgery center Dr. Suzanne Medley MD -Surgical Day Care Start: 11-07-2024 End: 11-07-[address] Padmini Carrasco MD Work Phone: -Surgical Day Care Start: 10-26-2024 End: 10-26-2024 ambulatory LUIGI BANKS Facility:[facility] Start: 10-22-2024 End: 10-22-2024 ambulatory Luigi Banks MD Work Phone: Radiation Oncology Comment on above: Patient Education (D ischarge teaching-completed radiation) Start: 10-19-2024 End: 10-19-2024 ambulatory Lab/[place] [facility] Work Phone: Hematology/Oncology Comment on above: Malignant neoplasm o f urinary bladder, unspecified site (HCC) (Primary Dx) Start: 10-18-2024 End: 10-18-2024 ambulatory PADMINI CARRASCO Facility:[facility] Start: 10-17-2024 End: 10-17-2024 ambulatory PADMINI CARRASCO Facility:[facility] Start: 10-16-2024 End: 10-16-2024 Patient encounter procedure Luigi Banks MD Work Phone: Radiation Oncology Comment on above: 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) Start: 10-16-2024 End: 10-16-2024 ambulatory LUIGI BANKS Facility:[facility] Start: 10-15-2024 End: 10-15-2024 ambulatory Treatment Rm 6 Miguel A [facility] Work Phone: Hematology/Oncology Comment on above: Malignant neoplasm o f urinary bladder, unspecified site (HCC) (Primary Dx); Malignant neoplasm of overlapping sites of bladder (HCC) Start: 10-12-2024 End: 10-12-2024 Patient encounter procedure Bob Otero Work Phone: Hematology/Oncology Start: 10-12-2024 End: 10-12-2024 ambulatory Lab/[place] [facility] Work Phone: Hematology/Oncology Comment on above: Malignant neoplasm o f prostate (HCC) (Primary Dx) Malignant neoplasm o f overlapping sites of bladder (HCC) (Primary Dx) Start: 10-11-2024 End: 10-11-2024 ambulatory PADMINI CARRASCO Facility:[facility] Start: 10-10-2024 End: 10-10-2024 ambulatory PADMINI CARRASCO Facility:[facility] Start: 10-09-2024 End: 10-09-2024 Patient encounter procedure Luigi Banks MD Work Phone: Radiation Oncology Comment on above: 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) Start: 10-09-2024 End: 10-09-2024 ambulatory Lab/[place] [facility] Work Phone: Hematology/Oncology Comment on above: Malignant neoplasm o f overlapping sites of bladder (HCC) Start: 10-05-2024 End: 10-05-2024 ambulatory Lab/[place] [facility] Work Phone: Hematology/Oncology Comment on above: 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) Start: 10-05-2024 End: 10-05-2024 ambulatory PADMINI CARRASCO Facility:[facility] Start: 10-04-2024 End: 10-04-2024 ambulatory PADMINI CARRASCO Facility:[facility] Start: 10-03-2024 End: 10-03-2024 ambulatory PADMINI CARRASCO Facility:[facility] Start: 10-02-2024 End: 10-02-2024 Patient encounter procedure Luigi Banks MD Work Phone: Radiation Oncology Comment on above: 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) Start: 10-02-2024 End: 10-02-2024 ambulatory LUIGI BANKS Facility:[facility] Start: 10-01-2024 End: 10-01-2024 ambulatory Lab/[place] [facility] Work Phone: Hematology/Oncology Comment on above: Malignant neoplasm o f overlapping sites of bladder (HCC) Start: 10-01-2024 End: 10-01-2024 ambulatory [facility] Facility:[facility] Start: 09-28-2024 End: 09-28-2024 ambulatory Lab/[place] [facility] Work Phone: Hematology/Oncology Comment on above: Malignant neoplasm o f urinary bladder, unspecified site (HCC) (Primary Dx) Start: 09-27-2024 End: 09-27-2024 ambulatory [facility] Facility:[facility] Start: 09-27-2024 End: 09-27-2024 ambulatory Treatment Rm 4 Miguel A [facility] Work Phone: Hematology/Oncology Comment on above: 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) Start: 09-26-2024 End: 09-26-2024 ambulatory [facility] Facility:[facility] Start: 09-25-2024 End: 09-25-2024 Telephone encounter Wolf Crane RN Work Phone: Hematology/Oncology Comment on above: Care Coordination (C YCLE 1/DAY 1 POST TREATMENT CALL ) Start: 09-25-2024 End: 09-25-2024 Patient encounter procedure Luigi Banks MD Work Phone: Radiation Oncology Comment on above: 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 Padmini Carrasco MD Work Phone: -Radiology [facility] Start: 09-21-2024 End: 09-21-[address] Lakeisha Dawkins DO -Radiology [facility] Work Phone: Start: 09-21-2024 End: 09-21-2024 Dr. Lakeisha Dawkins DO -Radiology [facility] Work Phone: Start: 09-21-2024 End: 09-21-2024 ambulatory Padmini Carrasco Facility:[facility] Start: 09-18-2024 ambulatory STACY GAUTHIER Facility: [facility] Start: 09-18-2024 End: 09-18-2024 [facility] Work Phone: Cat Scan Comment on above: Malignant neoplasm o f urinary bladder, unspecified site (HCC) [C67.9] Start: 09-12-2024 End: 09-12-2024 ambulatory PADMINI CARRASCO Facility:[facility] Start: 09-07-2024 End: 09-19-2024 Patient encounter procedure Luigi Banks MD Work Phone: Radiation Oncology Start: 09-07-2024 End: 09-19-2024 Radiation Oncology Note Luigi Banks MD Work Phone: Radiation Oncology Comment on above: Simulation Note Treatment Planning Start: 09-07-2024 End: 09-07-2024 ambulatory PADMINI CARRASCO Facility:[facility] Start: 09-07-2024 End: 09-07-2024 Subsequent [facility] Work Phone: Radiology Comment on above: Malignant neoplasm o f overlapping sites of bladder (HCC) [C67.8] Start: 09-07-2024 End: 09-07-2024 Nursing evaluation of patient and report Nurse Radt [facility] Work Phone: Radiation Oncology Comment on above: 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) Start: 09-07-2024 End: 09-07-2024 [facility]ulatory [facility] Start: 09-06-2024 End: 09-06-2024 Telephone encounter Stacy Gauthier MD Work Phone: Urology Comment on above: Orders Start: 09-06-2024 End: 09-06-2024 ambulatory [facility] Facility:[facility] Start: 09-05-2024 End: 09-05-2024 Patient encounter procedure Lakeisha Dawkins DO Work Phone: Hematology/Oncology Start: 09-05-2024 End: 09-06-2024 Telephone encounter Matthew Gu RN Hematology/Oncology Comment on above: 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 Start: 08-29-2024 End: 08-29-2024 Patient encounter procedure Stacy Gauthier MD Work Phone: Urology Comment on above: Malignant neoplasm o f urinary bladder, unspecified site (HCC) (Primary Dx); Hematuria, gross Start: 08-29-2024 End: 08-29-2024 ambulatory STACY GAUTHIER Facility:[facility] Start: 08-24-2024 End: 08-24-2024 Telephone encounter Farheen Sommers sports complex attendant/Oncology Comment on above: CASE [id number] Update Start: 08-22-2024 End: 08-22-2024 Telephone encounter Farheen Sommers RN Hematology/Oncology Comment on above: CASE [id number] Discussion Start: 08-21-2024 End: 08-21-2024 Telephone encounter Stacy Gauthier MD Work Phone: Urology Comment on above: Surgical Followup; O rders Start: 08-21-2024 End: 08-21-2024 ambulatory STACY GAUTHIER Facility:[facility] Start: 08-16-2024 End: 08-16-2024 Admission to establishment Pst [facility] 1 Pre Surgical Testing Start: 08-16-2024 End: 08-16-2024 Patient encounter status Pst 1 [facility] Work Phone: Start: 08-16-2024 End: 08-16-2024 ambulatory STACY GAUTHIER Pre Surgical Testing Comment on above: Preop testing (Prima ry Dx); 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[place] heart without angina pectoris; Essential hypertension; Hyperlipidemia, [...] Start: 08-02-2024 End: 08-02-2024 ambulatory STACY GAUTHIER Facility:[facility] Start: 07-31-2024 End: 07-31-2024 ambulatory CODEY MEGHAN Facility:[facility] Start: 07-31-2024 End: 07-31-2024 Subsequent hospital visit by physician Ct Prep [facility] Cat Scan Comment on above: Malignant neoplasm o f urinary bladder, unspecified site (HCC) [C67.9] Start: 07-26-2024 End: 07-26-2024 Chart abstracting Farheen Sommers RN Hematology/Oncology Start: 07-26-2024 End: 07-26-2024 ambulatory CODEY CHRISTIANSON Facility:[facility] Start: 07-26-2024 End: 07-26-2024 Patient encounter procedure Codey Christianson MD Work Phone: Hematology/Oncology Start: 07-26-2024 End: 07-26-2024 ambulatory Codey Christianson MD Work Phone: Hematology/Oncology Comment on above: Malignant neoplasm o f urinary bladder, unspecified site (HCC) (Primary Dx) Start: 07-09-2024 End: 07-09-[address] Padmini Carrasco MD Work Phone: [facility] Work Phone: Start: 07-09-2024 End: 07-09-[address] Padmini Carrasco MD -Laboratory [place] Work Phone: Start: 07-09-2024 End: 07-09-2024 ambulatory Padmini Carrasco Facility:[facility] Start: 06-27-2024 End: 06-28-2024 ambulatory Jose J Winston Facility:[facility] Start: 06-27-2024 End: 06-28-2024 Evaluation and management of inpatient Dr. Jose J Winston MD -Medical Surgical 3 Work Phone: Start: 06-27-2024 [facility] Jose J Winston MD -[employer] Work Phone: Start: 06-21-2024 End: 06-21-[address] Padmini Carrasco MD Work Phone: [facility] Work Phone: Start: 06-21-2024 End: 06-21-[address] Jose J Winston MD -Laboratory Work Phone: Start: 06-21-2024 End: 06-21-2024 ambulatory Jose J Winston Facility:[facility] Start: 06-19-[address] Quin Carrasco MD Work Phone: [facility] Start: 06-19-2024 End: 06-19-2024 Patient encounter procedure Nito ACUNA [facility] Work Phone: Start: 06-19-2024 End: 06-19-2024 Patient encounter status Nito ACUNA [facility] Start: 06-19-2024 End: 06-19-[address] Padmini Carrasco MD Work Phone: [facility] Work Phone: Start: 05-28-2024 End: 05-28-[address] Jose J Winston MD -Laboratory, Specimen Work Phone: Start: 05-28-2024 End: 05-28-2024 ambulatory Jose J Winston Facility:[facility] Start: 05-16-2024 End: 05-17-2024 Emergency department patient visit Dr. Padmini Carrasco MD Work Phone: -Emergency Department Work Phone: Start: 05-10-2024 End: 05-10-[address] Padmini Carrasco MD Work Phone: [facility] Work Phone: Start: 05-10-2024 End: 05-10-[address] Padmini Carrasco MD -Laboratory, [facility] Start: 05-10-2024 End: 05-10-2024 ambulatory Padmini Carrasco Facility:[facility] Start: 03-23-2024 End: 03-23-2024 Patient encounter procedure Carmina Tee NP-Quin -[facility] Work Phone: Start: 03-23-2024 End: 03-23-2024 ambulatory Padmini Carrasco Facility:[facility] Start: 02-21-2024 End: 02-21-2024 Patient encounter procedure [facility] Start: 02-21-2024 End: 02-21-2024 ambulatory Padmini Carrasco Facility:[facility] Start: 02-02-2024 End: 02-02-[address] Ana Barillas MD -[facility] Work Phone: Start: 02-02-2024 End: 02-02-2024 ambulatory Padmini Carrasco Facility:[facility] Start: 01-18-2024 Non-patient / Non-visit Dr. Alycia Barillas MD -[facility] Start: 01-18-2024 End: 01-18-2024 Admission to same day surgery center Dr. Ana Barillas MD -Surgical Day Care Start: 01-18-2024 End: 01-18-2024 ambulatory Padmini Carrasco Facility:[facility] Start: 04-29-2023 Non-patient / Non-visit Dr. Rambo Carrasco Work Phone: [facility] Work Phone: Start: 04-29-2023 Non-patient / Non-visit Dr. Rambo Carrasco Work Phone: [facility] Start: 04-29-2023 End: 04-29-[address] Ezekiel Carrasco Work Phone: [facility] Work Phone: Start: 04-29-2023 End: 04-29-[address] Ezekiel Carrasco Work Phone: [facility]-Cardiovas[facility] Work Phone: Start: 02-28-2023 End: 02-28-[address] Ezekiel Carrasco Work Phone: [facility] Work Phone: Start: 02-28-2023 End: 02-28-[address] Ezekiel Carrasco Work Phone: [facility] Work Phone: Start: 02-10-2023 End: 02-10-[address] Ezekiel Carrasco Work Phone: [facility] Work Phone: Start: 01-27-2023 End: 01-27-[address] Ezekiel Carrasco Work Phone: [facility]-Pulmonary Medicine [facility] Work Phone: Start: 12-27-2022 End: 12-27-[address] Ezekiel Carrasco Work Phone: [facility] Work Phone: Start: 12-22-2022 Non-patient / Non-visit Dr. Rambo Carrasco Work Phone: [facility] Start: 12-22-2022 End: 12-22-[address] Ezekiel Carrasco Work Phone: [facility] Work Phone: Start: 12-22-2022 End: 12-22-[address] Ezekiel Carrasco Work Phone: [facility] Work Phone: Start: 12-15-2022 End: 12-15-2022 ambulatory [facility] Work Phone: Start: 12-15-2022 End: 12-15-2022 Patient encounter procedure [facility] Work Phone: Start: 12-14-2022 End: 12-14-2022 ambulatory [facility] Work Phone: Start: 12-14-2022 End: 12-14-2022 Patient encounter procedure [facility] Start: 08-16-2022 End: 08-16-[address] Ezekiel Carrasco Work Phone: [facility] Work Phone: Start: 08-16-2022 End: 08-16-[address] Ezekiel Carrasco Work Phone: [facility] Start: 07-28-2022 End: 07-28-[address] Ezekiel Carrasco Work Phone: [facility]-Pulmonary Medicine [facility] Work Phone: Start: 06-04-2022 Non-patient / Non-visit Dr. Rambo Carrasco Work Phone: [facility] Start: 06-04-2022 End: 06-04-[address] Ezekiel Carrasco Work Phone: [facility] Work Phone: Start: 06-04-2022 End: 06-04-[address] Ezekiel Carrasco Work Phone: [facility] Start: 05-28-2022 Non-patient / Non-visit Dr. Rambo Carrasco Work Phone: [facility] Start: 05-21-2022 Non-patient / Non-visit Dr. Rambo Carrasco Work Phone: [facility] Start: 05-21-[address] Dk Carrasco Work Phone: [facility] Start: 05-17-2022 End: 05-17-[address] Ezekiel Carrasco Work Phone: [facility] Work Phone: Start: 05-17-2022 End: 05-17-[address] Ezekiel Carrasco Work Phone: [facility]-Laboratory Start: 05-14-2022 Non-patient / Non-visit Dr. Rambo Carrasco Work Phone: [facility] Start: 05-14-[address] Dk Carrasco Work Phone: [facility] Start: 05-12-2022 Non-patient / Non-visit Dr. Rambo Carrasco Work Phone: [facility] Start: 05-11-2022 End: 05-11-[address] Ezekiel Carrasco Work Phone: [facility] Work Phone: Start: 05-11-2022 End: 05-11-[address] Ezekiel Carrasco Work Phone: [facility]-Pulmonary Services/Neurology Start: 05-07-2022 Non-patient / Non-visit Dr. Rambo Carrasco Work Phone: [facility] Start: 05-07-2022 End: 05-07-[address] Ezekiel Carrasco Work Phone: [facility] Work Phone: Start: 05-07-2022 End: 05-07-[address] [facility] Start: 05-03-2022 Non-patient / Non-visit Dr. Rambo Carrasco Work Phone: [facility] Start: 05-03-2022 End: 05-03-[address] Ezekiel Carrasco Work Phone: [facility] Work Phone: Start: 05-03-2022 End: 05-03-[address] Ezkeiel Carrasco Work Phone: [facility]-P[facility] Services/Neurology Start: 04-30-2022 Non-patient / Non-visit Dr. Rambo Carrasco Work Phone: [facility] Start: 04-23-2022 Non-patient / Non-visit Dr. Rambo Carrasco Work Phone: [facility] Start: 04-16-2022 Non-patient / Non-[facility] Start: 04-09-2022 Non-patient / Non-visit Dr. Rambo Carrasco Work Phone: [facility] Start: 04-09-[address] Dk Carrasco [facility] Start: 04-06-2022 End: 04-06-[address] Ezekiel Carrasco Work Phone: [facility] Work Phone: Start: 04-06-2022 End: 04-06-[address] Ezekiel Carrasco Work Phone: [facility] Start: 04-02-2022 End: 04-02-[address] Ezekiel Carrasco Work Phone: [facility] Work Phone: Start: 04-02-2022 End: 04-02-[address] Ezekiel Carrasco Work Phone: [facility]Laboratory Start: 03-31-2022 Non-patient / Non-visit Dr. Rambo Carrasco Work Phone: [facility] Start: 03-31-2022 Non-patient / Non-visit Dr. Rambo Carrasco Work Phone: [facility] Start: 03-31-2022 Non-patient / Non-visit Dr. Rambo Carrasco Work Phone: [facility] Start: 03-31-2022 End: 03-31-[address] Ezekiel Carrasco Work Phone: [facility] Work Phone: Start: 03-31-2022 End: 03-31-[address] Ezekiel Carrasco Work Phone: [facility]Cardiovascul [facility] Services Start: 03-30-2022 End: 03-30-[address] Ezekiel Carrasco Work Phone: [facility] Start: 03-30-2022 End: 03-30-[address] Ezekiel Carrasco Work Phone: [facility]-Pulmonary Medicine [facility] Start: 03-29-2022 End: 03-29-[address] Ezekiel Carrasco Work Phone: [facility] Work Phone: Start: 03-29-2022 End: 03-29-[address] Ezekiel Carrasco Work Phone: [facility] Start: 03-23-2022 End: 03-23-[address] Ezekiel Carrasco Work Phone: [facility] Start: 03-22-2022 End: 03-22-2022 Emergency department patient visit Dr. Ezekiel Carrasco Work Phone: [facility]-Emergency Department Start: 03-18-2022 End: 03-18-[address] Ezekiel Carrasco Work Phone: [facility] Work Phone: Start: 03-18-2022 End: 03-18-[address] Ezekiel Carrasco Work Phone: [place] Start: 03-10-2022 End: 03-10-[address] Ezekiel Carrasco Work Phone: [facility] Work Phone: Start: 03-10-2022 End: 03-10-[address] Ezekiel Carrasco Work Phone: [facility] Start: 03-04-2022 Non-patient / Non-visit Dr. Rambo Carrasco Work Phone: [facility] Phys[facility] Start: 03-03-2022 Non-patient / Non-visit Dr. Rambo Carrasco Work Phone: [facility] Start: 03-02-2022 Non-patient / Non-visit Dr. Rambo Carrasco Work Phone: [facility] Start: 03-02-2022 End: 03-04-2022 Evaluation and management of inpatient Dr. Ezekiel Carrasco Work Phone: [facility]-Progressive Care Unit Start: [address] Dk Carrasco Work Phone: [facility]-Physical Therapy Start: 02-25-2022 End: 02-25-[address] Ezekiel Carrasco Work Phone: [facility] Work Phone: Start: 02-25-2022 End: 02-25-[address] Ezekiel Carrasco Work Phone: [facility] Start: 02-03-2022 Orders Only Jamin hernandez MD Work Phone: Vascular Surg Dept Comment on above: Ruptured abdominal a ortic aneurysm (AAA), unspecified part (Primary Dx) Start: 01-25-2022 End: 01-25-[address] Ezekiel Carrasco Work Phone: [facility] Work Phone: Start: 01-25-2022 End: 01-25-[address] Ezekiel Carrasco Work Phone: [facility], Spec[facility] Start: 01-25-2022 Telephone encounter Holly cervantes MD Work Phone: Cardiology Comment on above: Surgical Followup Start: 01-21-2022 End: 01-21-[address] Ezekiel Carrasco Work Phone: [facility] Work Phone: Start: 01-21-2022 End: 01-21-[address] Ezekiel Carrasco Work Phone: [facility] Start: 01-06-2022 End: 01-06-[address] Ezekiel Carrasco Work Phone: [facility] Start: 01-06-2022 End: 01-06-[address] Ezekiel Carrasco Work Phone: [facility] Start: 01-01-2022 Orders Only Jamin hernandez MD Work Phone: Vascular Surg Dept Comment on above: Abdominal aortic ane urysm (AAA) without rupture, unspecified part (Primary Dx); Edema of abdomen Appointment Start: 12-28-2021 ambulatory Venita Shah KENN Work Phone: Critical Care Start: 12-28-2021 End: 12-28-2021 Emergency department patient visit [facility] Start: 12-22-2021 End: 12-22-2021 ambulatory [facility] Work Phone: Start: 12-22-2021 End: 12-22-2021 Patient encounter procedure [facility] Start: 09-23-2021 End: 09-23-[address] Ezekiel Carrasco Work Phone: [facility] Work Phone: Start: 09-23-2021 End: 09-23-[address] Ezekiel Carrasco Work Phone: [facility] Start: 08-20-2021 End: 08-20-[address] Ezekiel Carrasco Work Phone: [facility] Start: 07-07-2021 End: 07-07-[address] Ezekiel Carrasco Work Phone: [facility] Start: 05-11-2021 Telephone encounter Ezekiel Sepulveda MD Work Phone: Vascular Surg Dept Comment on above: Patient Update Start: 02-03-2021 Encounter for other preprocedural examination LISA GONZALEZ [facility] Start: 02-09-2019 Patient encounter status Dk Sepulveda MD Work Phone: [facility] Procedures Date Procedure Procedure Detail Performing Clinician Start: 12-06-2024 Echocardiography LISA GONZALEZ Start: 12-01-2024 Antibody screen LISA GONZALEZ Comment on above: Order Comment: Specimen Type: BLOOD SPEC IMENOrdering Facility: [facility] Address: [address] [place] [address] Result Comment: Juwan ent has a previous clinically significant antibody Performed By: #### T SCR ####[facility] BANKCLIA [id number] [address] Start: 11-27-2024 Antibody screen SANAMPATRICIA LISA Comment on above: Order Comment: Specimen Type: BLOOD SPEC IMENOrdering Facility: [facility] Address: [address] [place] [address] Result Comment: Juwan ent has a previous clinically significant antibody Performed By: #### T SCR ####[facility][1] BLOOD BANKCLIA [id number] [address] Start: 11-23-2024 Antibody screen LISA GONZALEZ Comment on above: Order Comment: Specimen Type: BLOOD SPEC IMENOrdering Facility: [facility] Address: [address] [place] [address] Result Comment: Juwan ent has a previous clinically significant antibody Performed By: #### T SCR ####[facility][1] BLOOD BANKCLIA [id number] [address] Start: 11-23-2024 Venous oxygen saturation measurement Dr. Padmini Carrasco MD Work Phone: Start: 11-23-2024 Plain X-ray abdomen Dr. Padmini Carrasco MD Work Phone: Start: 11-23-[address] Padmini Carrasco MD Work Phone: Start: 11-23-[address] Padmini Carrasco MD Work Phone: Start: 11-23-2024 Mean corpuscular hemoglobin concentration determination Dr. Padmini Carrasco MD Work Phone: Start: 11-23-[address] Padmini Carrasco MD Work Phone: Start: 11-23-2024 Nucleated red blood cell count procedure Dr. Padmini Carrasco MD Work Phone: Start: 11-23-2024 Platelet mean volume determination Dr. Quin Carrasco MD Work Phone: Start: 11-23-[address] Ezekiel Carrasco MD Work Phone: Start: 11-23-[address] Quin Carrasco MD Work Phone: Start: 11-23-2024 Urine microscopy: red cells Dr. Mavis Carrasco MD Work Phone: Start: 11-23-2024 Urnls dip stick/tablet reagent auto microscopy Dr. Padmini Carrasco MD Work Phone: Start: 11-21-2024 Mean corpuscular hemoglobin concentration determination Dr. Padmini Carrasco MD Work Phone: Start: 11-21-[address] Padmini Carrasco MD Work Phone: Start: 11-21-2024 Nucleated red blood cell count procedure Dr. Padmini Carrasco MD Work Phone: Start: 11-21-2024 Platelet mean volume determination Dr. Quin Carrasco MD Work Phone: Start: 11-19-[address] Zac Carrasco MD Work Phone: Start: 11-19-[address] Dk Carrasco MD Work Phone: Start: 11-18-2024 Measurement of occult blood in stool specimen using immunoassay Dr. Padmini Carrasco MD Work Phone: Start: 11-18-[address] Pamdini Carrasco MD Work Phone: Start: 11-18-[address] Padmini Carrasco MD Work Phone: Start: 11-18-2024 Urine microscopy: red cells Dr. Mavis Carrasco MD Work Phone: Start: 11-18-2024 Urnls dip stick/tablet reagent auto microscopy Dr. Padmini Carrasco MD Work Phone: Start: 11-18-2024 Plain chest X-ray Dr. Padmini Carrasco MD Work Phone: Start: 11-18-2024 Computed tomography of abdomen and pelvis with contrast Dr. Padmini Carrasco MD Work Phone: Start: 11-18-2024 Calculation of international normalized ratio Dr. Padmini Carrasco MD Work Phone: Start: 11-15-[address] Dk Carrasco MD Work Phone: Start: 11-15-2024 Mean corpuscular hemoglobin concentration determination Dr. Padmini Carrasco MD Work Phone: Start: 11-15-[address] Padmini Carrasco MD Work Phone: Start: 11-15-2024 Nucleated red blood cell count procedure Dr. Padmini Carrasco MD Work Phone: Start: 11-15-2024 Platelet mean volume determination Dr. Quin Carrasco MD Work Phone: Start: 11-15-[address] Padmini Carrasco MD Work Phone: Start: 11-07-2024 Mean corpuscular hemoglobin concentration determination Dr. Padmini Carrasco MD Work Phone: Start: 11-07-[address] Padmini Carrasco MD Work Phone: Start: 11-07-2024 Nucleated red blood cell count procedure Dr. Padmini Carrasco MD Work Phone: Start: 11-07-2024 Platelet mean volume determination Dr. Quin Carrasco MD Work Phone: Start: 11-07-[address] Padmini Carrasco MD Work Phone: Start: 11-07-2024 Plain chest X-ray Dr. Padmini Carrasco MD Work Phone: Start: 11-07-2024 Calculation of international normalized ratio Dr. Padmini Carrasco MD Work Phone: Start: 11-07-2024 Serum inorganic phosphate measurement Dr. Padmini Carrasco MD Work Phone: Start: 11-07-2024 Urine microscopy: red cells Dr. Mavis Carrasco MD Work Phone: Start: 11-07-2024 Urnls dip stick/tablet reagent auto microscopy Dr. Padmini Carrasco MD Work Phone: Start: 11-07-[address] Padmini Carrasco MD Work Phone: Start: 11-07-[address] Quin Carrasco MD Work Phone: Start: 11-07-2024 Computed tomography of abdomen and pelvis with contrast Dr. Padmini Carrasco MD Work Phone: Start: 11-07-2024 Measurement of occult blood in stool specimen using immunoassay Dr. Padmini Carrasco MD Work Phone: Start: 11-07-[address] Padmini Carrasco MD Work Phone: Start: [...] DO Work Phone: Start: 09-07-2024 Us retroperitoneal real time w/image complete Lakeisha A Masci DO Work Phone: Start: 08-29-2024 BLADDER SCAN Stacy Gauthier MD Work Phone: Start: 08-29-2024 Urnls dip stick/tablet rgnt auto w/o microscopy Stacy Gauthier MD Work Phone: Start: 08-02-2024 Urnls dip stick/tablet rgnt auto w/o microscopy Stacy Gauthier MD Work Phone: Start: 07-31-2024 Ct abdomen & pelvis w/contrast material Codey Christianson MD Work Phone: Start: 07-31-2024 Ct thorax w/contrast material Codey aguilera MD Work Phone: Start: 06-28-[address] Dk Carrasco MD Work Phone: Start: 06-27-2024 Transurethral resection of bladder neoplasm Dr. Padmini Carrasco MD Work Phone: Start: 06-21-[address] Padmini Carrasco MD Work Phone: Start: 06-21-2024 Computed tomography of abdomen and pelvis with contrast Dr. Padmini Carrasco MD Work Phone: Start: 06-19-2024 Evaluation of diagnostic study results Dr. Padmini Carrasco MD Work Phone: Start: 05-16-[address] Dk Carrasco MD Work Phone: Start: 05-16-2024 CT of abdomen and pelvis without contrast Dr. Padmini Carrasco MD Work Phone: Start: 05-16-2024 Urnls dip stick/tablet reagent auto microscopy Dr. Padmini Carrasco MD Work Phone: Start: 05-16-[address] Padmini Carrasco MD Work Phone: Start: 05-10-[address] Jaz Carrasco MD Work Phone: Start: 05-10-2024 Prostate specific antigen measurement Dr. Padmini Carrasco MD Work Phone: Comment on above: This test was performed using the [employer] tPSA method. Measured values of a patient sample can vary depending on the testing procedure used. PSA values determined on patient samples by different testing procedures cannot be used interchangeably. If there is a change in PSA assays while monitoring therapy, sequential testing should be performed to confirm baseline values. Start: 05-10-2024 Vitamin D, 25-hydroxy measurement Dr. Rambo Carrasco MD Work Phone: Comment on above: Vitamin D StatusDeficiency: <20 ng/mL (5 0nmol/L)Insufficiency: 20-30 ng/mL (50-75 nmol/L)Sufficiency: 30-100 ng/mL (75-250 nmol/L)Toxicity: >100 ng/mL (>250 nmol/L) Start: 02-21-[address] Padmini Carrasco MD Work Phone: Start: 02-10-[address] Ezekiel Carrasco Work Phone: Start: 12-15-2022 CT of abdomen and pelvis without contrast Start: 04-06-2022 X-ray of both feet Dr. Ezekiel Carrasco Work Phone: Start: 03-18-2022 Plain chest X-ray Dr. Ezekiel Carrasco Work Phone: Start: 03-02-2022 Plain chest X-ray Dr. Ezekiel Carrasco Work Phone: Start: 12-28-2021 History of coronary artery bypass grafting Hx of CABG Venita Briggsyessy HAWK Work Phone: Start: 12-28-2021 Computed tomography of abdomen and pelvis with intravenous contrast Start: 08-20-[address] Ezekiel Cararsco Work Phone: Start: 04-10-2019 Lipid 1996 panel - Serum or Plasma Farheen Sommers RN Start: 02-15-2019 Adult depression screening assessment Padmini Sepulveda MD Work Phone: Start: 02-12-2019 History of coronary artery bypass grafting H/O coronary artery bypass surgery Dr. Ezekiel Carrasco Work Phone: Comment on above: CABG x 1: SVG-RCA 02/12/2019; Start: 11-17-2018 Colonoscopy Padmini Sepulveda MD Work Phone: History of repair of inguinal hernia S/P inguinal hernia repair Dr. Padmini Carrasco MD Work Phone: Comment on above: [facility] History of repair of inguinal hernia S/P inguinal hernia repair Dr. Ana Barillas MD Investigation of tra nsfusion reaction Dr. Ezekiel Carrasco Work Phone: Legionella pneumophi la antigen assay Dr. Ezekiel Carrasco Work Phone: Respiratory microbial culture Dr. Ezekiel Carrasco Work Phone: SARS-CoV-2 & FLU Antigen (Rapid) Dr. Ezekiel Carrasco Work Phone: Urine culture Dr. Ezekiel Carrasco Work Phone: Urine culture Dr. Ezekiel Carrasco Work Phone: Plan of Treatment Date Care Activity Detail Author Start: 02-08-2028 Urine microalbumin profile DTa P,Tdap,Td Vaccine (2 - Td or Tdap) [facility] Start: 07-27-2027 Diabetes Screening Diabetes Screenin g [facility] Start: 10-15-2025 Complete blood count Hemoglobin/Miguel A [facility] Start: 10-09-2025 Complete blood count Hemoglobin/Miguel A [facility] Start: 10-01-2025 Complete blood count Hemoglobin/Miguel A [facility] Start: 10-01-2025 Creatinine measurement Serum Creatin ine [facility] Start: 09-27-2025 Creatinine measurement Serum Creatin ine [facility] Start: 09-24-2025 Complete blood count Hemoglobin/Miguel A [facility] Start: 09-24-2025 Creatinine measurement Serum Creatin ine [facility] Start: 09-05-2025 Complete blood count Hem[facility] Start: 09-05-2025 Creatinine measurement Serum Creatin ine [facility] Start: 07-31-2025 Screening for malign ant neoplasm of lung Lung Cancer Screening [facility] Start: 07-26-2025 Complete blood count Hemoglobin/Miguel A [facility] Start: 07-26-2025 Creatinine measurement Serum Creatin ine [facility] Start: 01-03-2025 DIABETES SCREEN DIABETES SCREEN [facility] Start: 01-01-2025 DIABETES SCREEN DIABETES SCREEN [facility] Start: 12-28-2024 DIABETES SCREEN DIABETES SCREEN [facility] Start: 11-23-2024 Administration of bl ood product [facility] Start: 11-23-2024 Plain X-ray abdomen [facility] Start: 11-23-2024 Transfusion of red b lood cells [facility] Start: 11-23-2024 End: 11-23-2024 -Emergency Department Work Phone: Start: 11-21-2024 Patient discharge [facility] Start: 11-20-2024 Following clinical p athway protocol [facility] Start: 11-20-2024 Administration of bl ood product [facility] Start: 11-19-2024 Administration of bl ood product [facility] Start: 11-19-2024 End: 11-19-2024 Patient encounter procedure 11/19/2024 9:00 AM EDT Office Visit Radiation Oncology [address] [place] [address] Luigi Banks MD [address] [place] [address] 4 wk follow Radiation Oncology Comment on above: 4 wk follow Start: 11-19-2024 Application of intermittent pneumatic compression device [facility] Start: 11-18-2024 End: 11-19-2024 [facility] Start: 11-18-2024 Assessment of risk o f venous thromboembolism [facility] Start: 11-18-2024 Insertion of cathete r into peripheral vein [facility] Start: 11-18-2024 Measuring intake and output [facility] Start: 11-18-2024 Oxygen therapy [facility] Start: 11-18-2024 Providing care accor ding to standard [facility] Start: 11-18-2024 Referral to gastroenterology service [facility] Start: 11-18-2024 Following clinical p athway protocol [facility] Start: 11-18-2024 Admission procedure [facility] Start: 11-18-2024 Administration of bl ood product [facility] Start: 11-18-2024 Transfusion of red b lood cells [facility] Start: 11-18-2024 Inhalation therapy procedure [facility] Start: 11-18-2024 Patient referral to dietitian [facility] Start: 11-18-2024 [facility] Start: 11-09-2024 End: 11-09-2024 ambulatory 11/09/2024 11:00 AM EDT Visit (SP) Office Hematology/Oncology [address] [place] [address] Lakeisha Dawkins DO [address] [place] [address] 8 WK OV* Hematology/Oncology Comment on above: 8 WK OV* Start: 11-07-2024 Patient discharge [facility] Start: 11-07-2024 Following clinical p athway protocol [facility] Start: 11-07-2024 Peripherally inserte d central catheter care [facility] Start: 11-07-2024 Application of intermittent pneumatic compression device [facility] Start: 11-07-2024 Assessment of risk o f venous thromboembolism [facility] Start: 11-07-2024 Consultation [facility] Start: 11-07-2024 Continuous pulse oximetry [facility] Start: 11-07-2024 Elevation of head of bed [facility] Start: 11-07-2024 Fall prevention [facility] Start: 11-07-2024 Incentive spirometry [facility] Start: 11-07-2024 Insertion of cathete r into peripheral vein [facility] Start: 11-07-2024 Introduction of urin brad catheter [facility] Start: 11-07-2024 Measuring intake and output [facility] Start: 11-07-2024 Providing care accor ding to standard [facility] Start: 11-07-2024 Provision of activit y privileges [facility] Start: 11-07-2024 Referral for physica l therapy [facility] Start: 11-07-2024 Referral to gastroenterology service [facility] Start: 11-07-2024 Referral to occupati onal therapist [facility] Start: 11-07-2024 Referral to service [facility] Start: 11-07-2024 Tobacco use cessatio n education [facility] Start: 11-07-2024 Vital signs measurements [facility] Start: 11-07-2024 [facility] Start: 11-07-2024 Admission procedure [facility] Start: 11-07-2024 Lactic acid measurement [facility] Start: 11-07-2024 [facility] Start: 11-07-2024 End: 11-07-2024 [facility] Start: 11-07-2024 Leukocyte reduced re d blood cells [facility] Start: 11-07-2024 Administration of bl ood product [facility] Start: 11-07-2024 Bacteria identified in Urine by Culture Urine Culture [facility] Start: 10-22-2024 End: 10-22-2024 Patient encounter procedure Radiation Oncology Comment on above: [facility] Start: 10-19-2024 End: 10-19-2024 ambulatory 10/19/2024 4:00 PM EDT Infusion Center Hematology/Oncology [address] [place] [address] [place]str, Lab/[place] [facility] [address] [place] [address] DC CADD* Hematology/Oncology Comment on above: DC CADD* Start: 10-19-2024 End: 10-19-2024 Patient encounter procedure 10/19/2024 10:15 AM EDT Appointment Radiation Oncology [address] [place] [address] [facility] Radiation Oncology Comment on above: [facility] Start: 10-18-2024 End: 10-18-2024 Patient encounter procedure 10/18/2024 10:15 AM EDT Appointment Radiation Oncology [address] [place] [address] [facility] Radiation Oncology Comment on above: [...] Appointment Radiation Oncology [address] [place] [address] [facility] Radiation Oncology Comment on above: [facility] Start: 10-15-2024 End: 10-15-2024 ambulatory Hematology/Oncology Comment on above: D22 CBC/CMP/QMO 5FU/ 2-2(PICC)ON XRT* D22(SO)CBC/CMP(S)(PI CC)/QMO 5FU/2-2/ON XRT* D22(SO)REDRAW CBC/CM P(S)(PICC)/QMO 5FU/2-2/ON XRT* Start: 10-12-2024 End: 10-12-2024 Patient encounter procedure 10/12/2024 10:15 AM EDT Appointment Radiation Oncology [address] [place] [address] [facility] Chemo Radiation Oncology Comment on above: Con Chemo Start: 10-12-2024 End: 10-12-2024 ambulatory Hematology/Oncology Comment on above: 4 WK OV/CHEMO 10/15* M ASCI (PICC)/DRESSING MCKINLEY GE* Start: 10-11-2024 End: 10-11-2024 Patient encounter procedure 10/11/2024 10:15 AM EDT Appointment Radiation Oncology [address] [place] [address] [facility] Radiation Oncology Comment on above: Con Chemo Start: 10-10-2024 End: 10-10-2024 Patient encounter procedure 10/10/2024 10:15 AM EDT Appointment Radiation Oncology [address] [place] [address] [facility] Radiation Oncology Comment on above: Con Chemo Start: 10-09-2024 End: 10-09-2024 Patient encounter procedure Radiation Oncology Comment on above: Con Chemo Location: W-ON TREAT MENT VISIT Start: 10-09-2024 End: 10-09-2024 ambulatory Hematology/Oncology Comment on above: D15 CBC(PICC)/DRESSI NG CHANGE* D22 CBC/CMP(PICC)/DR ARANA CHANGE* D15(SO)CBC(PICC)/DIDIER SSING CHANGE* Start: 10-08-2024 Influenza vaccination Influenza Vacc ine (#1) [facility] Start: 10-05-2024 End: 10-05-2024 ambulatory 10/05/2024 10:45 AM EDT Infusion Center Hematology/Oncology [address] [place] [address] Wstr, Lab/[place] [facility] [address] [place] [address] PICC DRESSING CHANGE Hematology/Oncology Comment on above: PICC DRESSING CHANGE Start: 10-05-2024 End: 10-05-2024 Patient encounter procedure 10/05/2024 10:15 AM EDT Appointment Radiation Oncology [address] [place] [address] [facility] Chem[facility] Radiation Oncology Comment on above: Con Chemo Start: 10-04-2024 End: 10-04-2024 Patient encounter procedure 10/04/2024 10:15 AM EDT Appointment Radiation Oncology [address] [place] [address] Con Chem[facility] Radiation Oncology Comment on above: Con Chemo Start: 10-03-2024 End: 10-03-2024 Patient encounter procedure 10/03/2024 10:15 AM EDT Appointment Radiation Oncology [address] [place] [address] Con Chem[facility] Radiation Oncology Comment on above: [...] Radiation Oncology [address] [place] [address] Con Chemo Radiation Oncology Comment on above: Con Chemo Start: 09-28-2024 End: 09-28-2024 ambulatory Hematology/Oncology Comment on above: DC CADD* DC CADD*/PICC DRESSI NG CHANGE Start: 09-28-2024 End: 09-28-2024 Patient encounter procedure 09/28/2024 10:15 AM EDT Appointment Radiation Oncology [address] [place] [address] [facility] Chem[facility] Radiation Oncology Comment on above: Con Chemo Start: 09-27-2024 End: 09-27-2024 ambulatory 09/27/2024 9:45 AM EDT Infusion Center Hematology/Oncology [address] [place] [address] Wstr, Lab/[place] [facility] [address] [place] [address] BMP* POSSIBLE HYDRATION Hematology/Oncology Comment on above: BMP* POSSIBLE HYDRAT ION Start: 09-27-2024 End: 09-27-2024 Patient encounter procedure Radiation Oncology Comment on above: Con Chemo Con Chemo. today onl y Start: 09-26-2024 End: 09-26-2024 Patient encounter procedure 09/26/2024 10:15 AM EDT Appointment Radiation Oncology [address] [place] [address] Con Chem[facility] Radiation Oncology Comment on above: [...] Center Hematology/Oncology [address] [place] [address] START QMO 5FU/1-2(PICC)ON XRT* Hematology/Oncology Comment on above: START QMO 5FU/1-2(PI CC)ON XRT* Start: 09-18-2024 End: 09-18-2024 Patient encounter procedure 09/18/2024 9:00 AM EDT Appointment Cat Scan [address] [place] [id number] Malignant neoplasm of urinary bladder, unspecified site (HCC) [C67.9] Cat Scan Comment on above: Malignant neoplasm o f urinary bladder, unspecified site (HCC) [C67.9] Start: 09-17-2024 End: 09-17-2024 Patient encounter procedure Radiation Oncology Comment on above: con chemo tent time con chemo tent time wants AM times Start: 09-13-2024 End: 09-13-2024 Patient encounter procedure 09/13/2024 1:30 PM EDT Office Visit Urology [address] [id number] Tc Nath MD [address] [place] [phone] CONSULT TO UROLOGY Urology Comment on above: CONSULT TO UROLOGY Start: 09-12-2024 End: 09-12-2024 ambulatory 09/12/2024 10:30 AM EDT Infusion Center Hematology/Oncology [address] [place], [place] [id number] Wstr, Supercharge Repair Supervisor [facility] [address] [place] [id number] CHEMO ED-5FU*rescheduled from 09/07 Hematology/Oncology Comment on [...] EDT Nurse Visit Radiation Oncology [address] [place] [id number] Wstr, Nurse Radt [facility] [address] [place] [address] Location: W-NURSING Radiation Oncology Comment on above: Location: W-NURSING Start: 09-06-2024 End: 09-06-2024 Patient encounter procedure 09/06/2024 10:30 AM EDT Office Visit Radiation Oncology [address] [place] [address] Luigi Banks MD [address] [place] [address] Malignant neoplasm of urinary bladder, unspecified site (HCC) [C67.9] Radiation Oncology Comment on above: Malignant neoplasm o f urinary bladder, unspecified site (HCC) [C67.9] Start: 09-05-2024 End: 09-05-2024 ambulatory 09/05/2024 2:00 PM EDT Visit (SP) Office Hematology/Oncology [address] [place] [address] Lakeisha Dawkins DO [address] [place] [address] transfer of care from [facility] Hematology/Oncology Comment on above: transfer of care [facility] Start: 09-05-2024 End: 12-05-2024 Chronic hepatitis differentiation between hepatitis B and C virus panel - Serum or Plasma [facility] Comment on above: Expected: 09/05/2024 , Expires: 12/05/2024 Start: 09-05-2024 End: 12-05-2024 DPYD/[id number] GENOTYPING PANEL [facility] Work Phone: Comment on above: Expected: 09/05/2024 , Expires: 12/05/2024 Start: 09-04-2024 End: 12-04-2024 Basic metabolic 2000 panel - Serum or Plasma BASIC METABOLIC PANEL Lab Routine Malignant neoplasm of urinary bladder, unspecified site (HCC) Other hydronephrosis Expected: 09/04/2024, Expires: 12/04/2024 [facility] Comment on above: Expected: 09/04/2024 , Expires: 12/04/2024 Start: 09-04-2024 End: 09-20-2025 CT Abdomen and Pelvis WO contrast CT ABD/PEL WO IVCON Radiology Routine Malignant neoplasm of urinary bladder, unspecified site (HCC) Other hydronephrosis Expected: 09/04/2024, Expires: 09/20/2025 [facility] Work Phone: Comment on above: Expected: 09/04/2024 , Expires: 09/20/2025 Start: 08-21-2024 End: 08-21-2024 Admission to same day surgery center 08/21/2024 3:25 PM EDT - 08/21/2024 4:40 PM EDT Surgery [address] [address] Stacy Gauthier MD [address] [place] [address] CYSTOSCOPY RIGID [facility] Comment on above: CYSTOSCOPY RIGID Start: 08-21-2024 Subsequent hospital visit by physician 08/21/2024 3:25 PM EDT Hospital Encounter [address] [address] Stacy Gauthier MD [address] [place] [address] Malignant neoplasm of urinary bladder, unspecified site (HCC) [C67.9], Gross hematuria [R31.0] [facility] Comment on above: Malignant neoplasm o [...] gross Expected: 08/16/2024, Expires: 11/15/2024 [facility] Comment on above: Expected: 08/16/2024 , Expires: 11/15/2024 Start: 08-16-2024 End: 08-16-2024 ambulatory 08/16/2024 10:00 AM EDT PAT Pre Surgical Testing [address] [facility] [place] [address] PAT CYSTOSCOPY TRANS URETHRAL RESECTION OF A BLADDER TUMOR LEFT URETERAL STENT INSERTION Pre Surgical Testing Comment on above: PAT CYSTOSCOPY TRANS URETHRAL RESECTION OF A BLADDER TUMOR LEFT URETERAL STENT INSERTION Start: 08-02-2024 End: 08-02-2024 Patient encounter procedure 08/02/2024 2:15 PM EDT Office Visit Urology [address] [place] [address] Stacy Gauthier MD [address] [place] [address] bladder cancer Urology Comment on above: bladder cancer Start: 07-31-2024 End: 07-31-2024 Patient encounter procedure Cat Scan Comment on above: CT ABD/PEL W IVCON Start: 06-28-2024 Chemotherapy care management [facility] Start: 06-28-2024 End: 06-28-2024 Patient discharge [facility] Start: 06-28-2024 Inhalation therapy procedure [facility] Start: 06-27-2024 Measuring intake and output [facility] Start: 06-27-2024 Ambulation therapy management [facility] Start: 06-27-2024 Deep breathing and coughing exercises [facility] Start: 06-27-2024 Incentive spirometry [facility] Start: 06-27-2024 Oxygen therapy [facility] Start: 06-27-2024 Provision of activit y privileges [facility] Start: 06-27-2024 Assessment of risk o f venous thromboembolism [facility] Start: 06-27-2024 End: 06-27-2024 Following clinical pathway protocol [facility] Start: 06-27-2024 Taking patient vital signs [facility] Start: 06-27-2024 Vital signs measurements [facility] Start: 06-27-2024 End: 06-27-2024 [facility] Start: 06-27-2024 Admission procedure [facility] Start: 06-27-2024 Anes transurethral resection of bladder tumor ANESTH BLADDER TUMOR SURG [facility] Start: 06-27-2024 Cystourethroscopy w/ dest &/rmvl tumor large CYSTOSCOPY AND TREATMENT [facility] Start: 06-27-2024 Transurethral resect ion of bladder neoplasm Cysto,Transurethal Resec Bladder,Olympus (Not Applicable) [facility] Start: 06-27-2024 Ambulation without limitation [facility] Start: 06-27-2024 Medication education [facility] Start: 06-27-2024 Patient discharge [facility] Start: 06-27-2024 Planned voiding [facility] Start: 06-27-2024 Taking patient vital signs [facility] Start: 06-27-2024 [facility] Start: 06-27-2024 [facility] Start: 05-16-2024 End: 05-17-2024 [facility] Start: 04-09-2024 Lipid panel Lipid Screening [facility] Start: 04-09-2024 LIPID SCREEN LIPID SCREEN [facility] Start: 02-08-2024 Advance Directive Discussion Advance Directive Discussion [facility] Start: 01-18-2024 Anesthesia hernia re pair lower abdomen nos ANESTH REPAIR OF HERNIA [facility] Start: 01-18-2024 Rpr 1st ingun hrna a ge 5 yrs/> reducible PRP I/SHILPI INIT REDUC >5 YR [facility] Start: 01-18-2024 Patient discharge [facility] Start: 10-09-2023 Covid-19 Vaccine () Covid-19 Vaccine () [facility] Start: 02-03-2023 BP CONTROLLED (<130/80) BP CONTROLLE D (<130/80) [facility] Start: 05-11-2022 Exercise tolerance test [facility] Start: 05-03-2022 Measurement of respi ratory function [facility] Start: 04-09-2022 DIABETES SCREEN DIABETES SCREEN [facility] Start: 03-30-2022 Patient referral [facility] Work Phone: Start: 03-04-2022 Patient discharge [facility] Start: 03-03-2022 Referral to occupati onal therapist [facility] Start: 03-03-2022 Referral to service [facility] Start: 03-03-2022 Referral to service [facility] Start: 03-02-2022 Following clinical p athway protocol [facility] Start: 03-02-2022 Assessment of risk o f venous thromboembolism [facility] Start: 03-02-2022 Catheterization of vein [facility] Start: 03-02-2022 Elevation of head of bed [facility] Start: 03-02-2022 Incentive spirometry [facility] Start: 03-02-2022 Inhalation therapy procedure [facility] Start: 03-02-2022 Insertion of cathete r into peripheral vein [facility] Start: 03-02-2022 Oxygen therapy [facility] Start: 03-02-2022 Patient education [facility] Start: 03-02-2022 Physiotherapy of chest [facility] Start: 03-02-2022 Providing care accor ding to standard [facility] Start: 03-02-2022 Referral to service [facility] Start: 03-02-2022 [facility] Start: 03-02-2022 Verification routine [facility] Start: 03-02-2022 Following clinical p athway protocol [facility] Start: 03-02-2022 Legionella pneumophi la Ag [Presence] in Urine [facility] Start: 03-02-2022 Streptococcus pneumo niae antigen assay [facility] Start: 03-02-2022 [facility] Start: 03-02-2022 Admission procedure [facility] Start: 03-02-2022 End: 03-02-2022 [facility] Start: 03-02-2022 Patient referral to dietitian [facility] Start: 02-07-2022 ADVANCE DIRECTIVE DISCUSSION ADVANCE DIRECTIVE DISCUSSION [facility] Start: 02-07-2022 DEPRESSION ASSESSMENT DEPRESSION ASS ESSMENT [facility] Start: 10-08-2021 Influenza vaccination INFLUENZA (#1) [facility] Start: 02-07-2021 ADVANCE DIRECTIVE DISCUSSION ADVANCE DIRECTIVE DISCUSSION [facility] Start: 02-07-2021 DEPRESSION ASSESSMENT DEPRESSION ASS ESSMENT [facility] Start: 04-09-2020 Hepatitis B surface antibody level LDL CHOLESTEROL [facility] Start: 02-16-2020 Adult depression scr eening assessment DEPRESSION SCREENING [facility] Start: 11-18-2019 Colonoscopy COLONOSCOPY [facility] Start: 11-18-2019 COLORECTAL CANCER SCREENING COLORECTAL CANCER SCREENING [facility] Start: 11-18-2019 Screening for malign ant neoplasm of colon [facility] Start: 03-10-2015 Medicare Annual Well ness Visit Medicare Annual Wellness Visit [facility] Start: 2015 PNEUMOVAX AGE 65 AND OVER WITH 5YR LOOKBACK (#1) PNEUMOVAX AGE 65 AND OVER WITH 5YR LOOKBACK (#1) [facility] Start: 02-07-2015 Medicare Annual Well ness Visit Medicare Annual Wellness Visit [facility] Start: 2010 RSV Vaccine (1 - Ris k 60-74 years 1-dose series) RSV Vaccine (1 - Risk 60-74 years 1-dose series) [facility] Start: 2005 Influenza vaccination LUNG CANCER [facility] Start: 02-27-2000 Influenza vaccination LUNG CANCER [facility] Start: 02-27-2000 SHINGRIX VACCINE (1 of 2) SANCHEZ GRIX VACCINE (1 of 2) [facility] Start: 1995 COLOGUARD (FIT-DNA) COLOGUARD (FIT-D NA) [facility] Start: [address] [facility] Start: 1995 FECAL OCCULT BLOOD FECAL OCCULT BLOO D [facility] Start: 1995 Screening for malign ant neoplasm of colon [facility] Start: 1995 SIGMOIDOSCOPY SIGMOIDOSCOPY [facility] Start: 02-27-1980 Zoledronic acid therapy ALPHA- 1 ANTITRYPSIN DEFICIENCY SCREENING [facility] Start: 1969 Shingrix Vaccine (1 of 2) Sanchez grix Vaccine (1 of 2) [facility] Start: 1969 Urine microalbumin profile DTAP,TDAP ,TD (1 - Tdap) [facility] Start: 02-27-1968 ANNUAL PCP TEAM SAUSAGE TIER AINSLEY DISEASE VISIT ANNUAL PCP TEAM CHRONIC DISEASE VISIT [facility] Start: 02-27-1968 Anxiety Screening Anxiety Screening [facility] Start: 02-27-1968 BP CONTROLLED (<130/80) BP CONTROLLE D (<130/80) [facility] Start: 02-27-1968 Depression Screening Depression Scre ening [facility] Start: 02-27-1968 HEPATITIS C [facility] Start: 02-27-1968 Hepatitis C screening Hepatitis C [facility] Start: 02-27-1960 Diabetic foot examination Diabetic F oot Exam [facility] Start: 02-27-1960 Glaucoma screening Dilated Retinal E xam [facility] Start: 02-27-1960 Hepatitis B screening Urine Albumin:Creatinine Ratio [facility] Start: 02-27-1956 PNEUMOCOCCAL: 65+ (1 - PCV) PNEUMOCOCCAL: 65+ (1 - PCV) [facility] Start: 1955 COVID-19 VACCINE (1) COVID-19 VACCIN E (1) [facility] Start: 1955 Hemoglobin A1c measurement HbA1C [facility] Start: 1950 COVID-19 VACCINE (#1) COVID-19 VACCI NE (#1) [facility] Bacteria identified in Sputum by Respiratory culture [facility] Blood chemistry [facility] CT Abdomen and Pelvi s WO contrast CT ABD/PEL WO IVCON Radiology Routine Malignant neoplasm of urinary bladder, unspecified site (HCC) Other hydronephrosis 09/18/2024 9:19 AM EDT [facility] Work Phone: CT Chest [facility] Guidance for percuta neous placement of nephrostomy tube of Kidney IR NEPHROSTOMY TUBE PLACE Radiology Routine Malignant neoplasm of overlapping sites of bladder (HCC) ROSALIE (acute kidney injury) Hydroureter on left Ordered: 09/05/2024 [facility] Comment on above: Ordered: 09/05/2024 H&P for surgery H&P FOR SURGERY Procedures Routine Malignant neoplasm of urinary bladder, unspecified site (HCC) Hematuria, gross Ordered: 08/13/2024 [facility] Work Phone: Comment on above: Ordered: 08/13/2024 Patient Education [facility] Work Phone: Patient referral [facility] Work Phone: Respiratory Culture Respiratory Culture [facility] Troponin T.cardiac [Mass/volume] in Serum or Plasma by High sensitivity method [facility] UA DIP, URINE (POC) UA DIP, URIN E (POC) Lab Routine Malignant neoplasm of urinary bladder, unspecified site (HCC) Nocturia Hematuria, gross Ordered: 08/02/2024 [facility] Work Phone: Comment on above: Ordered: 08/02/2024 Urine culture [facility] Urine culture [facility] End: 01-01-2023 US ABD AORTA COMPLETE VAS LAB US ABD AORTA COMPLETE VAS LAB Vascular Lab Routine Abdominal aortic aneurysm (AAA) without rupture, unspecified part Edema of abdomen 1 Occurrences starting 01/01/2022 until 01/01/2023 [facility] Work Phone: Comment on above: 1 Occurrences starti ng 01/01/2022 until 01/01/2023 Heart [facility] Heart [facility] End: 10-05-2025 US Kidney - bilateral and Urinary bladder US KIDNEY/BLADDER Radiology STAT Malignant neoplasm of overlapping sites of bladder (HCC) ROSALIE (acute kidney injury) Hydroureter on left 1 Occurrences starting 09/05/2024 until 10/05/2025 [facility] Work Phone: Comment on above: 1 Occurrences starti ng 09/05/2024 until 10/05/[address] [facility] [place] [facility] & VAS [facility] Immunizations Immunization Date Immunization Notes Care Provider Fa alyssa 01-11-2024 influenza virus vacc ine, unspecified formulation Codey Christianson MD Work Phone: [facility] Payers Date Payer Category Payer Self-pay [id number] 2015 Medicare MEDICARE MEDICAR E A AND B [id number] 2015-Present [phone] [place] [address] Medicare [id number] 2015 Medicare [id number] 2015 Medicare [id number] 2005 Unknown [id number] 2005-Present [phone] [facility] [address] [place] [address] MCO [id number] Unknown [facility] *DO NOT USE* [id number] Unknown [id number] [id number]2 Unknown [id number] 2.16.840.1.149731.3.579.2.462 Unknown [id number] 2.16.840.1.790490.3.579.2.462 Unknown [id number] 2.16.840.1.369131.3.579.2.462 Unknown [id number] 2.16.840.1.665519.3.579.2.462 Unknown [id number] 2.16.840.1.217526.3.579.2.462 Unknown [id number] 2.16.840.1.793881.3.579.2.462 Unknown [id number] 2.16.840.1.692425.3.579.2.462 Unknown [id number] 2.16.840.1.318429.3.579.2.462 Unknown [id number] 2.16.840.1.028239.3.579.2.462 Unknown [id number] 2.16.840.1.343912.3.579.2.462 Unknown [id number] 2.16.840.1.777620.3.579.2.462 Unknown [id number] 2.16.840.1.162095.3.579.2.462 Unknown [id number] 2.16.840.1.532080.3.579.2.462 Unknown [id number] 2.16.840.1.720082.3.579.2.462 Unknown [id number] 2.16.840.1.300412.3.579.2.462 Unknown [id number] 2.16.840.1.985740.3.579.2.462 Unknown [id number] 2.16.840.1.640913.3.579.2.462 Unknown [id number] 2.16.840.1.218074.3.579.2.462 Unknown [id number] 2.16.840.1.008798.3.579.2.462 Unknown [id number] 2.16.840.1.381810.3.579.2.462 Unknown [id number] 2.16.840.1.789270.3.579.2.462 Unknown [id number] 2.16840.1.985324.3.579.2.462 Unknown [id number] 2.16.840.1.401835.3.579.2.462 Unknown [id number] 2.16.840.1.771687.3.579.2.462 Unknown [id number] 2.16.840.1.772408.3.579.2.462 Unknown [id number] 2.16.840.1.437612.3.579.2.462 Unknown [id number] 2.16840.1.762425.3.579.2.462 Unknown [id number] 2.16840.1.147944.3.579.2.462 Unknown [id number] 2.16840.1.466121.3.579.2.462 Social History Date Type Detail Facility Start: 11-23-2024 [facility] Work Phone: End: 01-30-2019 History of tobacco use Current smoker [facility] Work Phone: Start: 01-30-1979 End: 01-30-2019 History of tobacco use Cigarette Smoker [facility] Work Phone: Start: 04-17-2021 End: 10-12-2024 Alcohol intake Current non-drinker of alcohol (finding) [facility] Start: 08-11-2012 End: 12-28-2021 Tobacco Comment started smoking 15yo, usually 1 PPD [facility] Start: 1950 Sex Assigned At Not on file C [facility] Start: 04-07-2021 End: 12-28-2021 Exposure to SARS-CoV-2 (event) Not sure [facility] Start: 07-07-2021 End: 02-28-2023 Tobacco smoking status SDIS Unknown if ever smoked [facility] Start: 11-14-2018 Cigarettes [facility] Start: 1950 Sex Assigned At Male [facility] Start: 12-28-2021 End: 11-07-2024 Tobacco smoking status NHIS Smokes tobacco daily [facility] Work Phone: Start: 12-28-2021 End: 07-31-2024 Cigarettes smoked current (pack per day) - Reported 1 [facility] Start: 12-28-2021 End: 08-02-2024 Tobacco use and exposure Smokeless tobacco non-user [facility] Work Phone: Start: 05-16-2024 End: 05-17-2024 Sex Male (finding) [facility] Start: 02-03-2022 End: 07-31-2024 Tobacco use panel [facility] Start: 01-09-2012 PHQ2 Score 0 [facility] Start: 09-12-2024 Gender identity Identifies as male gender (finding) [facility] Start: 09-12-2024 Sexual orientation Heterosexual (fin yomi) [facility] How often to you hav e a drink containing alcohol? Never [facility] Medical Equipment Procedure Code Equipment Code Equipment Origin al Text Equipment Identifier Dates Repair, hernia, inguinal, with mesh insertion ([id number]) [id number] FDA Start: 11-09-2023 Repair, hernia, inguinal, with mesh insertion ([id number]) [id number] FDA Start: 01-18-2024 EGD, with monitored anesthesia care [id number] FDA Start: 11-19-2024 EGD, with monitored anesthesia care [id number] FDA Start: 11-19-2024 [place] Thk1.65mm P tfe 4x.5in Cardiovascular Sterile - [id number] Start: 02-12-2019 Valve Aort 23mm Crp-Ed Thfx - [id number] Start: 02-12-[address] us Vascutek 18/9mm 2 Branch Gelatin 45cm Vascular Main Leg - [id number] Start: 12-28-2021 Goals Date Patient Goal Desired Activity /State Functional Status Date Assessment Result Facility 11-21-2024 Functional status Chair [facility] Work Phone: 11-07-2024 Functional status With Assist of 2 [facility] Work Phone: 10-12-2024 Total score [AUDIT-C] 0 10/13/19 25 10:19 AM EDT Paramjit Lugo MA [facility] 06-28-2024 Functional status Ambulates [facility] Work Phone: 03-04-2022 Functional status Ambulates [facility] Work Phone: 01-03-2022 Are you deaf, or do you have serious difficulty hearing No 01/03/2022 12:55 PM Abida Bright, RN [facility] 01-03-2022 Are you blind, or do you have serious difficulty seeing, even when wearing glasses No 01/03/2022 12:55 PM Abida Bright, RN [facility] 02-20-2019 Do you have serious difficulty walking or climbing stairs No 02/20/2019 1:06 PM Terrie Keys (Rn), RN No [facility] 02-20-2019 Do you have difficul ty dressing or bathing No 02/20/2019 1:06 PM Terrie Keys (Rn), RN No [facility] 02-20-2019 Because of a physica l, mental, or emotional condition, do you have difficulty doing errands alone such as visiting a physician's office or shopping No 02/20/2019 1:06 PM Terrie Keys (Rn), RN No [facility] Mental Status Date Assessment Result Facility 11-21-2024 Cognitive function Voice/Name [facility] Work Phone: 11-07-2024 Cognitive function Voice/Name [facility] Work Phone: 09-21-2024 Cognitive function Voice/Name [facility] Work Phone: 06-28-2024 Cognitive function Level Of Cons ciousness Awake;Alert;Appropriate;Fol lows [facility] Work Phone: 06-27-2024 Cognitive function Voice/Name [facility] Work Phone: 06-27-2024 Cognitive function Voice/Name [facility] Work Phone: 01-18-2024 Cognitive function Voice/Name [facility] Work Phone: 03-03-2022 Cognitive function Voice/Name [facility] Work Phone: 02-20-2019 Because of a physica l, mental, or emotional condition, do you have serious difficulty concentrating, remembering, or making decisions No 02/20/2019 1:06 PM Terrie Keys (Rn), RN No [facility] Clinical Notes 02-12-2019 to 12-12-2024 Note Date & Type Note Facility 12-12-2024 Note HNO ID: [id number] Author: ZACHARY ROCKWELL RN Service: ? Author Type: Registered Nurse Type: Progress Notes Filed: 12/12/2024 09:53 Note Text: Per Dr. Dawkins, ok to remove PICC line today. Pt and family agreeable. The patient was here today for a PICC line removal. Cleansed area of insertion and assessed for any signs or symptoms of complications. Pulled catheter line as per protocol and examined for status. The tip is intact and measures 48 cm. Pressure and dressings were applied at the insertion site and secured with paper tape. The patient was advised to keep dressing in place for at least 2 hours and to report any unusual pain, discomfort, or bleeding back to MD. The patient tolerated the procedure well and left the clinic with no voiced complaint. Zachary Rockwell RN [facility] 12-12-2024 Note HNO ID: [id number] Author: LUIGI BANKS MD Service: ? 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 s/p chemoradiation treatment finished on 10/22/24. INTERVAL HISTORY: He is here for a routine follow-up after he complete chemoradiation treatment. He had upper GI ulcer and GI bleeding requiring hospitalization. He is doing better now. He reports that his urination is almost back to his baseline. He has mildly increased urinary frequency. He denies any hematuria. ALLERGIES No Known Allergies MEDICATIONS: polyethylene glycol 3350 17 gram packet Take 1 packet by mouth once daily. Dissolve dose in 4 - 8 ounces of liquid and take as directed. albuterol HFA (PROVENTIL HFA, VENTOLIN HFA) 90 mcg/actuation inhaler Inhale 2 puffs as instructed every 4 hours as needed for wheezing/shortness of breath. sucralfate (CARAFATE) 1 gram tablet Take 1 g by mouth three times a day with meals. TAKE 1 TABLET BY MOUTH AT 7 IN THE MORNING, AGAIN AT 11 IN THE MORNING AND THEN AT [address] pant[address] (PROTONIX) 40 mg tablet Take 1 tablet by mouth two times a day before meals at 6 am and 4 pm. ondansetron (ZOFRAN) 8 mg tablet Take 1 tablet by mouth every 8 hours as needed (For chemotherapy induced nausea and vomiting.). mravcqrizrz-distkhcjb-covibtcc (TRELEGY ELLIPTA) 200-62.5-25 mcg inhalation powder Inhale 1 puff as instructed once daily. acetaminophen (TYLENOL) 325 mg tablet Take 2 tablets by mouth every 4 hours. rosuvastatin (CRESTOR) 5 mg tablet Take 5 mg by mouth daily at bedtime. PHYSICAL EXAM: VS: BP 110/69 (BP Site: Right Arm, BP Position: Sitting) Pulse 87 Temp 36.6 ?C (97.8 ?F) Resp 20 Wt 63.5 kg (140 lb) SpO2 98% BMI 22.60 kg/m? KPS: 90 General Appearance: Alert and oriented. No acute distress. 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 s/p chemoradiation treatment finished on 10/22/24. He is scheduled to have restaging CT scans in January and then to see Dr. Dawkins. He will see his urologist, Dr. Gauthier, for consideration of surveillance cystoscopy in 2-3 months. Signed by: Luigi Banks MD cc: Padmini Carrasco ([facility]) [address] [place] [address] [facility] 12-12-2024 Note HNO ID: [id number] Author: SELMA TREVINO RN Service: ? Author Type: Registered Nurse Type: Progress Notes Filed: 12/17/2024 11:27 Note Text: Radiation Therapy - Nursing Note (Follow-up) PATIENT NAME: Abelardo Ivory PATIENT December 12, 2024 [facility] FACILITY/LOCATION: [facility] Reason for visit: Follow up. Subjective Data Feels well without complaint Additional Data Do you want to see a Diesel Locomotive Firer? No Nursing Assessment Fatigue: He notes he has some fatigue but not worse than it was, if anything a bit better. Appetite: good Weight Gain/Loss: No Last 6 Encounter Wt Readings: Date: Wt: 12/10/2024 62.4 kg (137 lb 8 oz) 12/10/2024 62.5 kg (137 lb 12.8 oz) 11/23/2024 64.9 kg (143 lb 1.3 oz) 11/07/2024 69.9 kg (154 lb 1.6 oz) 10/15/2024 66.2 kg (146 lb) 10/12/2024 66.7 kg (147 lb) Bowel Function: normal bowel movements Bone Pain: none Focused Assessment PROSTATE - MALE PELVIS: Rectal bleeding: No. Rectal pain: No. Bladder function: no problems. Urinary frequency (D/N): 0/0. SIGNED by: Selma Trevino RN [facility] 12-10-2024 Note HNO ID: [id number] Author: LAKEISHA DAWKINS DO Service: ? Author Type: Physician Type: Progress Notes Filed: 12/10/2024 09:34 Note Text: [facility] CLINICAL NOTE Department of Hematology and Medical Oncology PATIENT NAME: Abelardo Ivory [facility] NO.: [id number] ATTENDING PHYSICIAN: Lakeisha Dawkins DO DATE OF SERVICE: 12/10/2024 Oncologic problem(s): 1) Muscle invasive bladder cancer. HPI: The patient has a past medical history as outlined below. Developed gross hematuria and noticed debris in urine. Saw Dr. Winston. Had TURBT with "chemo flush." Path below. Referred to [facility] b/c patient declined cystectomy. Per Dr. Christianson's note dated 07/26/2024, "June 2024, began experiencing flank pain, and hematuria, [...] the past 1-1.5 ppd since age 15 years" Pathology from [facility] reviewed at [facility]: A. Urinary bladder, transurethral resection: [...] cough. Clear sputum. Sees Dr. Zuñiga at [facility]. Smokes about 1/2 ppd. No alcohol. Current therapy: 1) Concurrent radiation with Mitomycin-C and infusional 5-fluorouracil. Mitomycin held cycle #2. Presents for ongoing oncologic management. Recording using [employer] software for draft documentation of the visit was discussed with the patient/authorized passenger relations representative; all questions welcomed and answered. Patient/authorized passenger relations representative agreed to proceed INTERIM HISTORY: The patient is a 74-year-old male with muscle-invasive bladder cancer presenting for follow-up after completing chemotherapy and radiation therapy. The patient completed chemotherapy and radiation therapy for muscle-invasive bladder cancer. He was recently hospitalized at [place] for an upper GI bleed, during which an EGD on the showed fresh blood. One area was injected for chemical cauterization. He was discharged on Tuesday. Since discharge, his stools have returned to normal color. He denies abdominal pain, nausea, or urinary urgency. He reports occasional burning sensation with urination, but not every time, and denies hematuria. He has resumed eating and reports a good appetite. He notes a period of about 2 weeks during which he could only tolerate water and broth, resulting in some weight loss. PAST MEDICAL HISTORY Diagnosis Date Abdominal aortic [...] ARTERIAL GRAFT 02/12/2019 AVR and CABG x1 [facility] 12/02/2024 EGD 12/02 showed normal esophagus, hematin in stomach, one oozing cratered duodenal ulcer in duodenal bulb s/p epi injection, bipolar, clip placement. EGD W/O [facility] SPEC VARICIES INJ 11/25/2024 large posterior duodenal bulb ulcer with pigmented base and (more content not included)... [facility] 12-06-2024 Note [facility] 12-06-2024 Note [facility] [place] 12-06-2024 Note [facility] 12-05-2024 Note [facility] 12-05-2024 Note [facility] 12-05-2024 Note [facility] 12-04-2024 Note [facility] 12-04-2024 Note [facility] 12-03-2024 Note [facility] 12-02-2024 Note HNO ID: [id number] Author: CHARISSA LAI, RN Service: Nursing Author Type: Registered Nurse Type: Nursing Progress Note Filed: 12/02/2024 16:28 Note Text: Other: Dr. Sierra at bedside . [facility]-[address] [facility] [place] 12-02-2024 Note HNO ID: [id number] Author: CHARISSA LAI, RN Service: Nursing Author Type: Registered Nurse Type: Nursing Progress Note Filed: 12/02/2024 16:27 Note Text: Other: Dr. Sierra notified of patients abdominal pain, orders given. [facility] 12-02-2024 Note [facility] 12-01-2024 Note [facility] 11-30-2024 Note [facility] [place] 11-29-2024 Note HNO ID: [id number] Author: JOE TREVINO, RN Service: ? Author Type: Registered Nurse Type: Nursing Progress Note Filed: 11/29/2024 18:11 Note Text: Other: Transferred via wheelchair. [facility] 11-29-2024 Note HNO ID: [id number] Author: JOE TREVINO RN Service: ? Author Type: Registered Nurse Type: Nursing Progress Note Filed: 11/29/2024 17:48 Note Text: Other: Report called to [id number] RN. [facility] 11-29-2024 Note HNO ID: [id number] Author: JOE TREVINO RN Service: ? Author Type: Registered Nurse Type: Nursing Progress Note Filed: 11/29/2024 17:22 Note Text: Other: Attempted to call report. [facility] 11-29-2024 Note HNO ID: [id number] Author: JOE TREVINO RN Service: ? Author Type: Registered Nurse Type: Nursing Progress Note Filed: 11/29/2024 17:22 Note Text: Other: Attempted to call report. [facility] 11-29-2024 Note [facility] 11-28-2024 Note [facility] 11-28-2024 Note [facility] 11-27-2024 Note [facility] 11-27-2024 Note [facility] 11-26-2024 Note [facility] 11-25-2024 Note [facility] 11-25-2024 Note [facility] 11-24-2024 Note [facility] 11-24-2024 Note [facility] 11-24-2024 Note [facility] 11-23-2024 Note [facility] 11-23-2024 Note HNO ID: [id number] Author: RAUL SALDIVAR APRN.OJ Service: ? Author Type: Nurse Practitioner Type: Progress Notes Filed: 11/25/2024 11:15 Note Text: Critical Care Transport Note Patient Name: Abelardo Ivory Service Date: November 23, 2024 Referring Physician: Pay Accepting Physician: Fuad Referring Facility: [facility] Accepting Facility: [facility] SUBJECTIVE/CHIEF COMPLAINT: "I had blood coming out of both ends" REASON FOR TRANSPORT: Patient being transferred for higher level of intensive care and surgical services unavailable at, or beyond the capabilities of, the referring facility. History of Present Illness: The following history is what was known to CCT team at time of given care and summarized through: review of available medical records, patient interview, and referring nursing report Abelardo Ivory is a 74 year old male with a past medical history significant for Bladder CA s/p cystoscopy several weeks ago and recently completed chemo, Hypertension, Hyperlipidemia, COPD, ruptured AAA s/p repair, CKD, CAD, former smoker (recently quit), and others documented below. He presented to [facility] ER on 11/23/2024 for evaluation of blood in stool and hematemesis. Of note, the patient was just discharged 2 days prior after being found to have an oozing duodenal ulcer, for which clips were placed and he was discharge with a hemoglobin of 9. Presently, in the ER he was complaining of abdominal pain and penile pain. He reports the penile pain has been ongoing since his cystoscopy several weeks ago and was exacerbated by urination. He reports abdominal pain associated with black stools and hematemesis. He subsequently had another black tarry bowel movement in the ER. While in the ER, he became hypotensive with associated "dusky" appearance and light-headedness. Hemoglobin was found to be 7.2. He denied anticoagulation, but does take a daily low-dose aspirin. Two units of PRBCs were transfused with improvement in his clinical signs and normalization of his blood pressure. He was loaded with Protonix (80 mg) and started on octreotide infusion. He was given ceftriaxone for prophylaxis and treated with both morphine and Dilaudid for analgesia. Other notable labs: Creatinine 1.6, vBG 7.34/23/36/22, WBC 8.4k, platelets 113k. He was briefly started on bicarb infusion, but this was later stopped. It was determined he required transfer for higher level of ICU care and surgical services beyond the capabilities of the referring facility. At this time, the physician managing the patient requested transfer to [facility] for tertiary and/or quaternary services unavailable at the referring facility. Patient condition at time of exam was: Acutely ill and critically ill. Due to the unique circumstances of the patient, it was determined that this was the closest, most appropriate facility by referring physician. The physician managing the patient requested the [facility] Critical Care Transport Team transport and treat the patient for the purpose of tertiary care, evaluation, and management of his surgical condition(s). Air medical transport was requested to reduce the [id number]-[id number] time, 17 minutes by air vs. approximately 50 minutes by ground, with the potential for increased ground transport time secondary to: traffic congestion and distance between facilities and the patient's condition requiring an emergent procedure or evaluation not available at the referring facility ROS: A complete review of systems was performed and is negative except as noted in [place] +abdominal pain (currently denies) +penile pain +n/v +bloody stool and emesis PAST MEDICAL HISTORY: PAST MEDICAL HISTORY Diagnosis [...] SURGICAL HISTORY OF 12/28/2021 AAA repair - "Stable status post graft repair of abdominal aortic aneurysm." PAST SURGICAL HISTORY OF 2024 Hernia repair PAST SURGICAL HISTORY OF 06/27/2024 Biopsy bladder REMV CATARACT EXTRACAP,INSERT LENS Left REMV CATARACT EXTRACAP,INSERT LENS Right ALLERGIES: Patient has no known allergies. SOCIAL HISTORY: SOCIAL HISTORY[1] FAMILY HISTORY: FAMILY HISTORY Problem Relation Age of Onse (more content not included)... [facility] 11-23-2024 Radiology Diagnostic study note [facility] 11-23-2024 Discharge summary Note Date/Time November 23, 2024 5:21pm [facility] Medical Records Department [address] [place] [address] Emergency Department Summary 11/23/24 MR#: [id number] Acct: [id number] Name: ABELARDO IVORY Rep #:[id number] : 1950 74 From: Juan Marei DO PCP: Dr. Padmini Carrasco MD Status :REG ER Location: ED HPI History of Present Illness Chief Complaint: Complaint Narrative Narrative: Pt is a 74-year-old male who is presenting to the ER with chief complaint of feeling lightheaded, slightly dizzy with no vertigo, and also having a very strong ache when he urinates. Patient states he is been having this ache when he urinates and this has been going on for the past 8 weeks since he last had a cystoscopy. Patient has been diagnosed with a bladder tumor. Patient was initially seen here by urologist Dr. WINSTON. Patient was referred to [facility]. Patient has gone through chemo, radiation. Patient stated he had his last chemo and radiation several weeks ago. Patient was seen in the local [facility] physicians for oncology, Dr. HOLGUIN. Patient is upset because he had a very strong ache and pain, not burning when he urinates since the scope. Patient currently has no headache, chest pain, shortness of breath. Patient currently has no abdominal pain nausea or vomiting. Patient had severalepisodes of dark black stool yesterday. Patient was brought back to the ER withdaughter. Patient's had 1 episode of black stool at home today. Patient has been to the [facility] several times recently and also at [facility] for admission as well. REVIEW OF SYSTEMS: Unless otherwise stated in this report the patient's positiveand negative responses for review of systems for constitutional, eyes, ENT, cardiovascular, respiratory, gastrointestinal, neurological, , musculoskeletal, and integument systems and related systems to the presenting problem are either stated in the history of present illness or were not pertinent or were negative for the symptoms and/or complaints related to the presenting medical problem. Nurse's notes and vital signs reviewed. The patient is not hypoxic. Vital signs reviewed and patient is not hypoxic. General: The patient appears by distress, looking pale. Patient is resting comfortably on cart. Not toxic, lethargic, or listless. Skin: Warm, dry, + pallor noted. There is no rash noted. Head: Normocephalic, atraumatic Eye: pale conjunctiva, no drainage, EOMI. PERRL. Ears, Nose, Mouth, and Throat: oral mucosa is dry. Nares patent. Mouth without vesicles. Cardiovascular: Regular Rate and Rhythm, no murmurs, gallops, or rubs Respiratory: Patient is in no distress, no accessory muscle use, lungs are clearto auscultation, no wheezing, rales or rhonchi Back: non-tender, no CVA tenderness bilaterally to percussion. NO CTLS midline or paraspinal tenderness to palpation. GI: Soft, no midepigastric pain, no suprapubic tenderness to palpation, no flankpain bilateral, no peritoneal signs. No tenderness to palpation, no masses appreciated. No rebound, guarding, or rigidity noted. : Patient is circumcised, 2 descended testicles, patient has no drainage, discharge, bleeding, and from urethral meatus. No pain to the glans or the shaft. No pain to bilateral testicles. No signs of any type of redness, crepitus, cellulitis, or any acute signs of infection to his perineum. Musculoskeletal: The patient has full range of motion of all extremities and joints with no difficulty. Patient has no motor, no sensory deficits. Neurological: A&O x4, normal speech, no focal neurological deficits. Patient appears slightly confused on timeline of always different recent admissions, butis a good historian overall Psychiatric: Cooperative [facility] Medical History Bladder cancer Wears dentures Wears glasses Bruising Easy bruising High cholesterol Smoker Shortness of breath on exertion History of echocardiogram Cardiology follow-up encounter Stage 3b chronic kidney disease (CKD) Thrombocytopenia Chronic kidney insufficiency Pleural effusion Secondary pulmonary arterial hypertension Atherosclerotic heart disease of [place] coronary artery without angina pectoris Intention tremor [...] (vitamin D3) 25 25 mcg PO DAILY supple ment 10/27/23 Unknown History mcg (1,000 unit) capsule metoprolol tartrate 25 mg tablet 12.5 mg (1/2 x 25 mg) PO BID #90 03/22/24 06/27/24 05:30 Rx tabs acetaminophen 500 mg capsule 1,000 mg PO Q6H PRN pain 06/13/24 Unknown History OXYGEN - Supplemental ([facility] 11/19/24 Unknown History INFORMATIONAL USE ONLY) albuterol sulfate 2.5 mg/3 mL 2.5 mg inhalation Q6H Unknown History (0.083 %) solution for nebulization calcium carbonate 500 mg PO QDAY 11/21/24 Unkn own History ferrous sulfate 325 mg (65 mg 325 mg PO QDAY 11/21/24 Unknown History iron) tablet fluticasone fur. 200 mcg-umeclid 1 inh inhalation QDAY 11/21/24 Unknown History 62.5 mcg-vilant 25 mcg inhalat.powder (Trelegy Ellipta) pantoprazole 40 mg tablet,delayed 40 mg PO BID #60 tab s 11/21/24 Unknown Rx release sucralfate 1 gram tablet 1 g PO 0700,1100,1600 #90 ta bs 11/21/24 Unknown Rx Allergy/AdvReac Type Severity Reaction Status Date / Time No Known Allergies Allergy Verified 11/23/24 11:22 Family History Sister Asthma Mother Arthritis Diabetes Brother Cancer Unsure what kind- "just a lump on his neck" Surgical History Neoplasm of bladder Hx of inguinal hernia repair S/P inguinal hernia repair History of cardiac catheterization S/P AAA repair 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) History of left heart catheterization (11/27/18) History of aortic valve replacement (02/12/19) Social History household members: none Smoking Status: Former smoker quit status: has quit before alcohol intake: never substance use type: does not use caffeine: Yes Type: coffee Number of servings: 3 what type of physical activity do you participate in: other frequency: 3-4 times per week seatbelt use: always EXAM Physical Exam Const Vital Signs: 11/23/24 11:22 11/23/24 11:41 11/23/24 11:45 Temperature 98.4 F Temperature Source Oral Pulse Rate 103 H 123 H 111 H Respiratory Rate 18 27 H 22 H Blood Pressure 99/66 102/80 Blood Pressure Mean 77 89 Blood Pressure Source Blood Pressure Position Blood Pressure Location Pulse Ox 100 Oxygen Delivery Method Nasal Cannula Oxygen Flow Rate (L/min) 2 11/23/24 12:00 11/23/24 12:15 11/23/24 12:30 Temperature Temperature Source Pulse Rate 99 97 95 Respiratory Rate 19 H 17 17 Blood Pressure Blood Pressure Mean Blood Pressure Source Blood Pressure Position Blood Pressure Location Pulse Ox Oxygen Delivery Method Oxygen Flow Rate (L/min) 11/23/24 12:45 11/23/24 13:00 11/23/24 13:15 Temperature Temperature Source Pulse Rate 104 H 90 98 Respiratory Rate 17 17 24 H Blood Pressure Blood Pressure Mean Blood Pressure Source Blood Pressure Position Blood Pressure Location Pulse Ox 85 Oxygen Delivery Method Oxygen Flow Rate (L/min) 11/23/24 13:18 11/23/24 13:19 11/23/24 13:30 Temperature Temperature Source Pulse Rate 98 117 H 97 Respiratory Rate 18 23 H 25 H Blood Pressure 152/79 H 152/79 H 101/64 Blood Pressure Mean 103 99 74 Blood Pressure Source Blood Pressure Position Blood Pressure Location Pulse Ox Oxygen Delivery Method Nasal Cannula Oxygen Flow Rate (L/min) 11/23/24 13:45 11/23/24 14:00 11/23/24 14:01 Temperature Temperature Source Pulse Rate 91 112 H 112 H Respiratory Rate 20 H 27 H 18 Blood Pressure 112/64 119/106 H Blood Pressure Mean 76 111 Blood Pressure Source Blood Pressure Position Blood Pressure Location Pulse Ox Oxygen Delivery Method Oxygen Flow Rate (L/min) 11/23/24 14:15 11/23/24 14:30 11/23/24 14:45 Temperature Temperature Source Pulse Rate 106 H 107 H 100 Respiratory Rate 30 H 26 H 22 H Blood Pressure Blood Pressure Mean Blood Pressure Source Blood Pressure Position Blood Pressure Location Pulse Ox Oxygen Delivery Method Oxygen Flow Rate (L/min) 11/23/24 15:00 11/23/24 15:02 11/23/24 15:15 Temperature Temperature Source Pulse Rate 106 H 108 H 96 Respiratory Rate 29 H 22 H 30 H Blood Pressure 146/80 H 128/34 H Blood Pressure Mean 101 59 Blood Pressure Source Blood Pressure Position Blood Pressure Location Pulse Ox 92 Oxygen Delivery Method Nasal Cannula Oxygen Flow Rate (L/min) 4 11/23/24 15:30 11/23/24 15:31 11/23/24 15:34 Temperature Temperature Source Pulse Rate 92 92 91 Respiratory Rate 25 H 23 H 22 H Blood Pressure 79/37 L 64/31 L 68/56 L Blood Pressure Mean 46 38 63 Blood Pressure Source Blood Pressure Position Blood Pressure Location Pulse Ox Oxygen Delivery Method Oxygen Flow Rate (L/min) 11/23/24 15:41 11/23/24 15:45 11/23/24 15:56 Temperature 96.5 F L Temperature Source Axillary Pulse Rate 94 92 106 H Respiratory Rate 23 H 26 H 19 H Blood Pressure 69/29 L 77/48 L 77/48 L Blood Pressure Mean 42 55 57 Blood Pressure Source Monitor Blood Pressure Position Semi-Fowlers Blood Pressure Location Right Arm Pulse Ox 68 Oxygen Delivery Method Nasal Cannula Oxygen Flow Rate (L/min) 4 11/23/24 16:00 11/23/24 16:24 11/23/24 16:55 Temperature 97.6 F L Temperature Source Axillary Pulse Rate 103 H 85 71 Respiratory Rate 21 H 18 12 Blood Pressure 87/65 L 101/57 L 120/65 Blood Pressure Mean 71 71 83 Blood Pressure Source Monitor Blood Pressure Position Semi-Fowlers Blood Pressure Location Right Arm Pulse Ox 91 100 Oxygen Delivery Method Nasal Cannula Nasal Cannula Oxygen Flow Rate (L/min) 2 2 MDM MDM MDM Narrative Medical decision making narrative: Patient seen and examined: IV, labs, IV fluids, urine testing. Differential diagnosis includes but is not limited to: ACS, dehydration, electrolyte abnormality, GI bleed, UTI, urinary retention, Relevant laboratory interpretation: Patient's hemoglobin is 7.2, hematocrit 22, platelets 113. Patient does have signs of UTI with blood, leuk esterase, greater than 100 white blood cells. Urine cultures pending Laboratory studies: BUN and creatinine are 68/1.66, hemoglobin is 7.2. Reevaluation: 1245 Dr. Pichardo called down to the ER to discuss patient's case. Patient was just discharged a few days ago from [facility]. Dr. Pichardo had discussed this case with Dr. Floyd before he had just called me. It is recommended the patient be transferred to a tertiary care center where he could have a surgical procedure for duodenal ulcer that may be actively bleeding. Patient was just discharged 2 days ago and had a hemoglobin of 9.2. Social barriers to healthcare: There are no food insecurities, there is no issuewith transportation, there are no insurance barriers Disposition: 1340 I have just spoken to Farheen at the [facility] transfer line. Reporting case has been discussed. There are beds are currently full, she will discuss this with the hospitalist team and the surgical team to see what the course of action and if they are able to take on this patient. After doing chart review, patient just had a EGD done 4 days ago. It was noted that patient had a oozing duodenal ulcer with pigmented material. Clips were placed. Patient had a widely patent previous surgical anastomosis, characterized by edema, erosion, erythema was found in the duodenum. Patient had coagulation that was done as well. Patient was then started on full liquid diet, Protonix, Carafate, and continue present medications. 1444 Patient was initially admitted to Dr. Venita Merida for MedSurg telemetry, patient was maintaining his vital signs, looking sick but nontoxic. Patient had 1 small black stool this morning in the ER, but no active bleeding. 1431 patient was having chest pain, some mild difficulty breathing. EKG was ordered, along with x-ray will be ordered as well for reevaluation of patient, make sure there is no new perforation or any other new acute changes. EKG interpretation. Sinus tachycardia 103. Normal axis deviation. No acute STelevation, no acute ectopy. Abdominal series x-ray was reviewed by myself, no free air, no obstruction, no air-fluid levels. No signs of pneumothorax, no acute cardiopulmonary disease, no infiltrate. No official read from radiology at this time. 1510 patient has decompensated. Patient became hypotensive, patient had several episodes of brownish/coffee-ground emesis. Patient has maintained his airway. Patient became clammy, diaphoretic, patient was sitting up. Patient did not aspirate. Patient has a PICC line to his left arm, a 20-gauge in the right arm. Patient will be given a dose of Compazine IV 5 mg. Patient has already had 2 separate doses of Zofran [address] Thompson is the accepting ICU doctor at [facility]. Patient is no longer excepted on MedSur telemetry. Patient also will be leaving and [facility]. Patient and daughter have been updated multiple times. I spent 60 minutes with one-on-one care with this patient since 3:10 PM. We will repeat CBC. 1610 patient is finishing the first unit of blood. Sodium bicarb has been canceled, patient did not receive any sodium bicarb infusion on this patient. Patient initially had a 500 cc bolus of IV fluids, and patient was maintaining his blood pressure at that time. Patient had Protonix 80 mg ordered, patient also will be given the octreotide bolus and drip as well. I have spoken to Kt from the critical care team who is helping arrange [facility] for this patient as well. They are aware that if patient continues to keep vomiting, I am concerned about airway and patient may need intubated, but patient feels better after his several episodes of vomiting and is maintaining his airway and talking with no difficulty at this time. No obvious signs of aspiration. 1615 patient reassessed, patient maintaining airway. Patient does feel better after he had his 2-3 episodes of coffee-ground emesis, he was also given IV Compazine 5 mg as well. Patient is finishing his first unit of blood and will see the second unit of blood as well. Patient has had no significant large black stool bowel movements in the ER today. 1635 Patient and daughter been updated multiple times. Patient blood pressure is improving with blood. Maintaining MAP greater than 65. Patient currently receiving second unit of blood at this time [address] Garland to watch the patient until [facility] arrives in another 15 to 20 minutes. Critical care time 77 minutes exclusive from separate billable procedures that were performed. The following was considered in the determination of critical care but not limited to the level of medical decision making, intensive cardiac and/or respiratory monitoring, frequent vital sign monitoring, evaluation of laboratory studies, evaluation of radiographic studies, oxygen monitoring, and constant monitoring and speaking to family at bedside Lab Data Labs: Laboratory Results - last 24 hr 11/23/24 11/23/24 11/23/24 11:43 12:25 13:10 WBC 8.4 RBC 2.26 L Hgb 7.2 L Hct 22.0 L MCV 97.3 H MCH 31.9 MCHC 32.7 RDW Std Deviation 52.2 H RDW Coeff of Manjit 16.6 H Plt Count 113 L MPV 9.7 Immature Gran % (Auto) 0.900 Neut % (Auto) 78.0 H Lymph % (Auto) 12.3 L Hawkins % (Auto) 7.5 Eos % (Auto) 0.7 Baso % (Auto) 0.6 Absolute Neuts (auto) 6.6 Absolute Lymphs (auto) 1.04 Nucleated RBC % 0 Reactive Lymphocytes RARE Sodium 136 Potassium 4.8 Chloride 104 Carbon Dioxide 21.8 Anion Gap 10 BUN 68 H Creatinine 1.66 H Est GFR (MDRD) Non-Af 43 L BUN/Creatinine Ratio 40.8 H Glucose 136 H Lactic Acid 1.3 Calcium 8.5 Total Bilirubin 0.18 AST 14 ALT 9 Alkaline Phosphatase 41 Total Protein 4.9 L Albumin 3.1 L Globulin 1.8 L Albumin/Globulin Ratio 1.7 Lipase 38 Urine Color Yellow Urine Clarity Clear Urine pH 5.0 Ur Specific Ashton 1.010 Urine Protein 30 H Urine Glucose (UA) Normal Urine Ketones Negative Urine Occult Blood 50 H Urine Nitrite Negative Urine Bilirubin Negative Urine Urobilinogen Normal Ur Leukocyte Esterase 25 H Urine RBC 5-10 SEEN Urine WBC >100 SEEN Ur Squamous Epith Cells 0 SEEN Urine Bacteria 0 SEEN Urine Mucus 0 SEEN Blood Type A POSITIVE Antibody Screen NEGATIVE Crossmatch See Detail ABG Data ABG results: ABG 11/23/24 15:26 Specimen Type FAITH Sample Site Not entered VBG pH 7.34 VBG pO2 37 VBG HCO3 22 VBG Total CO2 23 VBG O2 Sat (Calc) 67 VBG Base Excess -4 L POC Mix VBG pCO2 Pt Tmp 40.0 L O2 Delivery Device Not entered Discharge Plan Dx/Rx/DC Orders Clinical Impression: Duodenal ulcer, Hypotension, ROSALIE (acute kidney injury), Nausea & vomiting, UTI (urinary tract infection) Disposition Disposition: Acute Care Hospital [facility] What to do if you have Problems For any increased pain, shortness of breath, bleeding, nausea or vomiting, chestpain, or any unexpected problems, contact your Primary Care Provider. Call [facility] ([phone]) or report to the closest Emergency Room. Call 911 if necessary. 11/23/24 8620 <Electronically signed by Juan Marie DO> Manuel Signature (if applicable): CC: Dr. Padmini Carrasco MD ~ Signed [facility] Work Phone: 1(552) 828-436910-17-2025 [facility] Procedure [facility]-15[facility]2025 Procedure [facility]-15-2025 Progress note Author Pradip Pichardo [facility] Note Date/Time November 21, 2024 1 2:48pm [facility] Medical Records Department [address] [place] [address] Progress Note - Hospitalist 11/20/24 1434 MR#: [id number] Acct: [id number] Name: ABELARDO IVORY Rep #:[id number] : 1950 74 From: Pradip Pichardo DO PCP: Dr. Padmini Carrasco MD Status :ADM IN Location: [place] [address] Reason for Visit Chief Complaint: Recurrent upper GI bleed Subjective Subjective Patient was seen and examined today, his hemoglobin this morning was 6.8, I elected to give him 2 units of packed red blood cells. CBC will be rechecked tomorrow morning, patient remains on Carafate and Protonix at this time. Objective Data Objective Data Vital Signs: Vital Signs Temp Pulse Resp BP Pulse Ox O2 Del Method O2 Flow Rate 97.4 F L 80 16 123/62 H 100 Nasal Cannula 2 11/20/24 14:15 11/20/24 14:15 11/20/24 14:15 11/20/24 14:15 11/20/24 14:15 11/20/24 14:15 11/20/24 12:15 Oxygen Flow Rate (L/min) 2 Oxygen Delivery Method Nasal Cannula Weight: 63 kg Body Mass Index (BMI) 22.4 Intake & Output: Intake and Output for Last 24 Hours 11/18/24 11/19/24 11/20/24 23:59 23:59 23:59 Intake Total 2123 / 2123 1400 / 1400 0 / 0 Output Total 1427 / 1427 700 / 700 Balance 2123 / 1823 -27 / -27 -700 / -700 Medical Nutrition Assessment Dietitian: Malnutrition Criteria Met Start: 11/19/24 13:31 Freq: Status: Active Protocol: Document 11/19/24 13:31 SB (Rec: 11/19/24 13:32 SB [id number]) Nutrition Malnutrition Evidence of Yes Malnutrition Exists Malnutrition (severe Chronic ): Evidenced By Suboptimal Energy Intake (Moderate),Weight Loss (Severe ) Clinical Problem Chronic Disease or Condition Related Malnutrition Etiology severe malnutrition related to inadequate oral intake and increased energy expenditure due to bladder cancer Signs/Symptoms as evidenced by PO meeting <50% of estimated nutrition needs x 1 week and 10% unintentional weight loss x 3 months Status Active Problem Recommendation Dietitian Recommend advanced diet as tolerated to transitional Recommendations/ with goal of regular. Changes Will order 120mL chocolate EPHP 4x daily with medpass. Will monitor weight trends. Lab / Micro Data 11/21/24 05:13 11/19/24 05:13 Labs: Laboratory Results - last 24 hr 11/18/24 02:14: Crossmatch See Detail 11/18/24 02:14: Crossmatch See Detail 11/20/24 08:30: Hgb 6.8 L, Hct 20.8 L Micro: Microbiology 11/18/24 04:10 Urine, Clean Catch Urine Culture - Final Culture exhibits no growth. 11/18/24 02:10 Stool Stool Occult Blood (ASIF) - Final Occult Blood Positive Physical Exam Const alert, oriented x3, no apparent distress and average body habitus General Appearance: cooperative, well kempt and well developed Orientation / Consciousness: awake, oriented to person, oriented to place and oriented to time HEENT normocephalic and moist oral mucous membranes Eyes PERRL, EOMs intact bilaterally and conjunctivae normal Neck supple, no JVD, thyroid normal and no carotid bruits General: trachea midline Resp normal respiratory effort and clear to auscultation bilaterally Auscultation: Negative for rales, rhonchi or wheezes Cardio regular rate, regular rhythm, S1 normal heart sound, S2 normal heart sound, no murmurs, no rub and no gallops GI normal to inspection, nondistended, normoactive bowel sounds, soft to palpation,non-tender and non-distended Extremity no clubbing, cyanosis or edema Skin no rashes or lesions noted General Skin Exam: no breakdown Neuro oriented x3, CN's II-XII intact bilaterally, moves all extremities, no focal motor deficits and no sensory deficits noted Sensorium / Orientation: awake and alert Speech: speech normal Psych affect normal Assessment & Plan Assessment/Plan (1) Duodenal ulcer: PLAN: Plan 1. Acute upper GI hemorrhage from bleeding duodenal ulcer-CBC will be monitored, patient will remain on Carafate and Protonix #2 acute blood loss anemia secondary to #1 requiring blood transfusion-CBC will be monitored, patient will receive 2 units of packed red blood cells today #3 chronic obstructive pulmonary disease-patient will remain on aerosol treatments #4 hypertension-patient's amlodipine is being held at this time #5 hyperlipidemia-patient is on a statin Total clinical time spent by myself addressing the patient's medical issues, reviewing all of his data, and collaborating with patient's care team: 35 minutes Charges/Coding Visit Charges Inpatient E&M: 98120 Subs Hosp L2 11/21/24 1248 <Electronically signed by Pradip Pichardo DO> Cosigner Signature (if applicable): CC: ~ Signed [facility] Work Phone: 1(575) 423-662710-15-2025 Progress note Author Pradip Mastwelia healthirma [facility] Note Date/Time November 21, 2024 1 2:45pm [facility] Medical Records Department [address] [place] [address] Progress Note - Hospitalist 11/19/241919 MR#: [id number] Acct: [id number] Name: ABELARDO IVORY Rep #:[id number] : 1950 74 From: Pradip Pichardo DO PCP: Dr. Padmini Carrasco MD Status :ADM IN Location: [place] [address]- 1 Reason for Visit Chief Complaint: Recurrent upper GI bleed Subjective Subjective Patient was seen and examined today, [...] okay with staying here at the hospital. Objective Data Objective Data Vital Signs: Vital Signs Temp Pulse Resp BP Pulse Ox O2 Del Method O2 Flow Rate 97.9 F 76 16 132/54 H 99 Room Air 3 11/19/24 16:17 11/19/24 16:17 11/19/24 16:17 11/19/24 16:17 11/19/24 16:17 11/19/24 16:17 11/19/24 09:10 Oxygen Flow Rate (L/min) 3 Oxygen Delivery Method Room Air Weight: 63 kg Body Mass Index (BMI) 22.4 Intake & Output: Intake and Output for Last 24 Hours 11/17/24 11/18/24 11/19/24 23:59 23:59 23:59 Intake Total 2123 1160 / 1160 Output Total 1152 / 1152 Balance 2123 / 1823 Medical Nutrition Assessment Dietitian: Malnutrition Criteria Met Start: 11/19/24 13:31 Freq: Status: Active Protocol: Document 11/19/24 13:31 SB (Rec: 11/19/24 13:32 SB [id number]) Nutrition Malnutrition Evidence of Yes Malnutrition Exists Malnutrition (severe Chronic ): Evidenced By Suboptimal Energy Intake (Moderate),Weight Loss (Severe ) Clinical Problem Chronic Disease or Condition Related Malnutrition Etiology severe malnutrition related to inadequate oral intake and increased energy expenditure due to bladder cancer Signs/Symptoms as evidenced by PO meeting <50% of estimated nutrition needs x 1 week and 10% unintentional weight loss x 3 months Status Active Problem Recommendation Dietitian Recommend advanced diet as tolerated to transitional Recommendations/ with goal of regular. Changes Will order 120mL chocolate EPHP 4x daily with medpass. Will monitor weight trends. Lab / Micro Data 11/21/24 05:13 11/19/24 05:13 Labs: Laboratory Results - last 24 hr 11/18/24 02:14: Crossmatch See Detail 11/19/24 05:13: WBC 6.0, RBC 2.34 L, Hgb 7.1 L, Hct 21.9 L, MCV 93.6, MCH 30.3, MCHC 32.4, RDW Std Deviation 53.4 H, RDW Coeff of Manjit 16.0 H, Plt Count 117 L, MPV 9.0, Sodium 139, Potassium 4.8, Chloride 110 H, Carbon Dioxide 21.7, Anion Gap 8, BUN 63 H, Creatinine 1.59 H, Estim Creat Clear Calc 36.32 L, Est GFR (MDRD) Non-Af 45 L, BUN/Creatinine Ratio 39.7 H, Glucose 111 H, Calcium 8.0 Micro: Microbiology 11/18/24 02:10 Stool Stool Occult Blood (ASIF) - Final Occult Blood Positive Physical Exam Const alert, oriented x3 and no apparent distress General Appearance: cooperative, well kempt and well developed Orientation / Consciousness: awake, oriented to person, oriented to place and oriented to time HEENT normocephalic, head/scalp atraumatic and moist oral mucous membranes Eyes PERRL, EOMs intact bilaterally and conjunctivae normal Neck supple, no JVD, thyroid normal and no carotid bruits General: trachea midline Resp normal respiratory effort, no retractions, no use of accessory muscles and clearto auscultation bilaterally Auscultation: Negative for rales, rhonchi or wheezes Cardio regular rate, regular rhythm, S1 normal heart sound, S2 normal heart sound, no murmurs, no rub and no gallops GI normal to inspection, nondistended, normoactive bowel sounds, soft to palpation,non-tender and non-distended Extremity no clubbing, cyanosis or edema Skin no rashes or lesions noted General Skin Exam: no breakdown Neuro oriented x3, CN's II-XII intact bilaterally, moves all extremities, no focal motor deficits and no sensory deficits noted Sensorium / Orientation: awake and alert Speech: speech normal Psych affect normal Assessment & Plan Assessment/Plan (1) Duodenal ulcer: PLAN: Plan 1. Acute upper GI hemorrhage from bleeding duodenal ulcer-CBC will be monitored, patient will remain on Carafate and Protonix #2 acute blood loss anemia secondary to #1 requiring blood transfusion-CBC will be monitored #3 chronic obstructive pulmonary disease-patient will remain on aerosol treatments #4 hypertension-patient's amlodipine is being held at this time #5 hyperlipidemia-patient is on a statin Total clinical time spent by myself addressing the patient's medical issues, reviewing all of his data, and collaborating with patient's care team: 35 minutes Charges/Coding Visit Charges Inpatient E&M: 94344 Subs Hosp L2 11/21/24 7013 <Electronically signed by Pradip Pichardo DO> Cosigner Signature (if applicable): CC: ~ Signed [facility] Work Phone: 1(936) 568-156910-15-2025 Discharge summary Author Pradip Pichardo [facility] Note Date/Time November 21, 2024 1 2:41pm [facility] Medical Records Department [address] [place] [address] Instructions for Home/Discharge Instructions 11/21/24 1225 MR#: [id number] Acct: [id number] Name: ABELARDO IVORY Rep #:[id number] : 1950 74 From: Pradip Pichardo DO PCP: Dr. Padmini Carrasco MD Status :ADM IN Discharge Instructions DC O2, CPAP, BIPAP needs Home O2 Discharge instructions: No Dressing / Incision Discharge Activity: Return to Normal Activity Follow Up Care Test Results: Test results from this visit will be discussed in further detail at your follow- up appointment, if applicable. Discharge Plan Admission Admit Date/Time: 11/18/24 17:28 Primary Reason for Your Visit: Acute upper GI bleed secondary to duodenal ulcer Attending Provider: Pradip Pichardo Primary Care Provider: Padmini Carrasco Consulting Providers: Derrell Fonseca; Kamlesh Floyd; Summer Grande; Oxana Camarillo; Minda Foreman; Chet Valdivia Instructions Additional Instructions / Restrictions: Resume Trelegy inhaler as before Discharge Orders/Prescriptions Prescriptions: New sucralfate 1 gram Tablet 1 g PO 0700,1100,1600 Qty: 90 0RF pantoprazole 40 mg Tablet,Delayed Release (Dr/Ec) 40 mg PO BID Qty: 60 0RF Continued amlodipine 5 mg tablet 5 mg PO DAILY Qty: 30 11RF aspirin 81 mg tablet,delayed release (DR/EC) 81 mg PO DAILY Patient Comments: STOP PER DR. WINSTON PRIOR TO PROCEDURE rosuvastatin [Crestor] 5 mg tablet 5 mg PO DAILY acetaminophen 500 mg capsule 1,000 mg PO Q6H PRN (Reason: pain) cholecalciferol (vitamin D3) 25 mcg (1,000 unit) capsule 25 mcg PO DAILY (DME) OXYGEN - Supplemental ([facility] INFORMATIONAL USE ONLY) 0 .ROUTE .MEDSUPPLY Patient Comments: 2lpm @[facility] and prn during day metoprolol tartrate 25 mg tablet 12.5 mg PO BID Qty: 90 3RF Referrals / Follow Up: Padmini Carrasco MD [Primary Care Provider, Family Practice] - In 1 Week Referral Note: Obtain a repeat CBC to recheck your blood count Friend,DO Kamlesh [Med Staff - Active Staff, Gastroenterology] - See Referral Note Referral Note: In 2 to 3 weeks for follow-up Disposition Disposition (needs filled in before D/C Order can be placed): Home, Self Care 11/21/24 1241<Electronically signed by Pradip Pichardo DO>Pradip Pichardo DO CC: MINE MOTOR ENGINEER-Quin Grande; MINE MOTOR ENGINEER-Quin Camarillo; Dr. Chet Valdivia DO; Dr. Padmini Carrasco MD; Dr. Derrell Fonseca MD; KALPANA Ramirez; DO Tanvi ~ Signed [facility] Work Phone: 1(930) 276-340610-15-2025 Hospital Discharge instructionsAdditional Instructions Resume Trelegy inhaler as before Date of Discharge: 11/21/24[facility] Work Phone: 1(611) 762-716810-14-2025 Progress note Author Summer Grande [facility] Note Date/Time November 19, 2024 1 1:56pm [facility] Medical Records Department [address] [place] [address] Progress Note - Hospitalist 11/19/242349 MR#: [id number] Acct: [id number] Name: ABELARDO IVORY Rep #:[id number] : 1950 74 From: Summer Costello P-C PCP: Dr. Padmini Carrasco MD Status :ADM IN Location: [place] [address] Hospitalist Note Notified by nrsg that pt is having 8/10 pelvic and penis pain when voiding, which is frequently. He reports taking a pain medication at home but does not know the name of it. No opioid recorded on his med rec list. Current BP [id number]. PRN acetaminophen "is not working." Considering his history of bladder cancer, I did order a x1 dose of Fentanyl 25mcg IV and Oxy IR 5mg PO q6h PRN pain 6-10, as these options are short-acting. 11/19/246 <Electronically signed by Summer LUNDBERG> Cosigner Signature (if applicable): CC: ~ Signed [facility] Work Phone: 1(531) 480-485310-13-2025 Consult note Author Jose Cisneros [facility] Note Date/Time November 21, 2024 2 :58pm [facility] Medical Records Department [address] [place] [address] Anesthesia Postop Eval II 11/19/24 1100 MR#: [id number] Acct: [id number] Name: ABELARDO IVORY Rep #:[id number] : 1950 74 From: Jose Cisneros MD PCP: Dr. Padmini Carrasco MD Status :ADM IN Y Race: C Location: [place] [address] 0-1 Anesthesia Postop Eval I Sum Postop Eval Completion status Anesthesia document: Postop Eval 1 completed: Yes Anesthesia Postop Eval I Summary Anesthesia Postop Eval I Summary: Anesthesia Postop Eval I: Assessment Summary Airway patent Yes 11/19/24 10:42 [email or web address] Spontaneous unlabored Yes 11/19/24 10:42 [email or web address] respirations Mental status Asleep 11/19/24 10:42 [email or web address] nausea No 11/19/24 10:42 [email or web address] Vomiting No 11/19/24 10:42 [email or web address] Anesthesia Postop Eval I: Fluid Summary Crystalloid volume administer 300 11/19/24 10:42 [email or web address] (ml) Colloids volume administered ( ml) Blood Product volume administered (ml) Total IV fluid infused 300 11/19/24 10:42 [email or web address] Anesthesia Postop Eval I: Summary Notes Anesthesia Complication No 11/19/24 10:42 [email or web address] Anesthesia Complication Comment: Post-operative progress note Anesthesia: Postop Eval II Evaluation Mental status: Awake Pain Level: 0 nausea: No Vomiting: No 11/19/24 1100 <Electronically signed by Jose Cisneros MD > Date _ Jose Cisneros MD Cosigner Signature: Date CC: ~ Signed [facility] Work Phone: 1(139) 384-609510-13-2025 Consult note Author Alon Hastings [facility] Note Date/Time November 19, 2024 1 0:42am [facility] Medical Records Department [address] [place] [address] Anesthesia Postop Eval I 11/19/24 104 MR#: [id number] Acct: [id number] Name: ABELARDO IVORY Rep #:[id number] : 1950 74 From: Alon Hastings PCP: Dr. Padmini Carrasco MD Status :ADM IN Y Race: C Location: [place] [address] 0-1 Anesthesia: Postop Eval I Current Vital Signs Temperature: 98.6 F Pulse Rate: 72 Blood Pressure: 96/59 Respiratory Rate: 16 Pulse Ox: 100 Oxygen Delivery Method: Room Air Assessment Airway patent: Yes Spontaneous unlabored respirations: Yes Mental status: Asleep nausea: No Vomiting: No Anesthesia Complication: No Fluid Hydration Crystalloid volume administer (ml): 300 Total IV fluid infused: 300 Progress Note Anesthesia document: Postop Eval 1 completed: Yes 11/19/241041 <Electronically signed by Alon Hastings > Date _ Alon Jackson Signature: Date CC: ~ Signed [facility] Work Phone: 1([phone] 498-808910-13-2025 Consult note Author Kamlesh Floyd [facility] Note Date/Time November 19, 2024 1 0:16am [facility] Medical Records Department [address] [place] [address] Consultation - GI 11/19/24 1013 MR#: [id number] Acct: [id number] Name: ABELARDO IVORY Rep #:[id number] : 1950 74 From: Kamlesh Friend DO PCP: Dr. Padmini Carrasco MD Status :ADM IN Location: [place] [address] HPI Consult Data Date of Consult: 11/19/24 HPI Narrative Reason for Consultation: GI bleed HPI Narrative: ABELARDO IVORY, is a 74 M who presents to the emergency room with multiple episodes of abdominal pain followed by lower GI bleeding. He underwent a transurethral bladder resection on 06/27/[address] Winston for concerns of a bladder mass. He states that he will be starting chemo treatments soon at [facility]. Patient has a history of aortic stenosis diagnosed in 2012. Patient underwent coronary angiography which revealed 80% stenosis in the RCA and patient was referred to [facility] for aortic valve and RCA revascularization. Patient underwent AVR plus CABG x 1 (Perimount #23, SVG to RCA at [facility] [place] on 02/12/2019). Patient did well postoperatively with echocardiogram demonstrating preserved ejection fraction, normally functioning prosthetic aortic valve with peak gradient 25 mmHg and mean gradient of 13 mmHg. Patient was diagnosed with an abdominal aortic aneurysm and was sent to [place] for an opinion. It was noted to measure 5.1 cm on his abdominal pelvic CT scan. He did suggestto the surgeon that he was not currently interested in aortic surgery. He was seen in the emergency department 12/28/2021 for abdominal pain in which his CT scan demonstrated 5 cm infrarenal abdominal aortic aneurysm with adjacent retroperitoneal fluid suggesting of aneurysm leak. Patient was to be transferred to [facility] facility and on 12/28/2021 patient proceeded with thoracoretroperitoneal ruptured juxtarenal abdominal aortic aneurysm repair. Workup at that time revealed the cause of the GI bleed was a actively bleedingduodenal ulcer. He had the ulcer cauterized when he underwent EGD and colonoscopy and then was transferred to [facility] as there was concern he would need further intervention that was not available to our hospital. Patient and family state that at [facility] they simply watched him for 3 days and there was no return of bleeding so he was discharged home. I was called back to see him due to a decreasing hemoglobin requiring blood transfusions again. [facility] Medical History Bladder cancer Wears dentures Wears glasses Bruising Easy bruising High cholesterol Smoker Shortness of breath on exertion History of echocardiogram Cardiology follow-up encounter Stage 3b chronic kidney disease (CKD) Thrombocytopenia Chronic kidney insufficiency Pleural effusion Secondary pulmonary arterial hypertension Atherosclerotic heart disease of [place] coronary artery without angina pectoris Intention tremor Carotid stenosis, bilateral Hyperlipidemia Nonrheumatic aortic (valve) stenosis Essential hypertension Tobacco dependence Bilateral inguinal hernia Left carotid bruit Abdominal aortic aneurysm (AAA) Anemia Subcutaneous mass of back PUD (peptic ulcer disease) Cough Arthritis Home Medications ?Medication ?Instructions ?Recorded ?Last Taken ?Type aspirin 81 mg tablet,delayed 81 mg PO DAILY heart heal th 03/02/22 01/12/24 History release Held on 11/18/24. Instructions: Ordered rosuvastatin 5 mg tablet (Crestor) 5 mg PO DAILY uzma sterol 03/02/22 03/02/22 History amlodipine 5 mg tablet 5 mg PO DAILY #30 tabs 02/28 Unknown Rx cholecalciferol (vitamin D3) 25 25 mcg PO DAILY supple ment 10/27/23 Unknown History mcg (1,000 unit) capsule metoprolol tartrate 25 mg tablet 12.5 mg (1/2 x 25 mg) PO BID #90 03/22/24 06/27/24 05:30 Rx tabs acetaminophen 500 mg capsule 1,000 mg PO Q6H PRN pain 06/13/24 Unknown History OXYGEN - Supplemental ([facility] 11/19/24 Unknown History INFORMATIONAL USE ONLY) Allergy/AdvReac Type Severity Reaction Status Date / Time No Known Allergies Allergy Verified 11/07/24 15:31 Family History Sister Asthma Mother Arthritis Diabetes Brother Cancer Unsure what kind- "just a lump on his neck" Surgical History Neoplasm of bladder Hx of inguinal hernia repair S/P inguinal hernia repair History of cardiac catheterization S/P AAA repair 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) History of left heart catheterization (11/27/18) History of aortic valve replacement (02/12/19) Social History household members: none Smoking Status: Former smoker quit status: has [...] alert, oriented x3, no apparent distress and average body habitus Constitutional Narrative: no acute distress. General Appearance: cooperative and comfortable HEENT normocephalic, head/scalp atraumatic, hearing grossly normal bilaterally, nasal mucous membranes and turbinates normal and moist oral mucous membranes Eyes PERRL, EOMs intact bilaterally and conjunctivae normal Neck full ROM Chest inspection of chest normal Resp normal respiratory effort, normal air movement, no use of accessory muscles and clear to auscultation bilaterally Cardio regular rate, regular rhythm, no murmurs and peripheral pulses 2+ throughout GI normal to inspection, nondistended, normoactive bowel sounds, soft to palpation,non-tender and non-distended Back/Spine normal ROM Extremity normal to inspection, full ROM and no pedal edema Skin no rashes or lesions noted Psych mental status grossly normal Lab / Micro Data 11/19/24 05:13 11/19/24 05:13 Labs: Laboratory Results - last 24 hr 11/18/24 02:14: Crossmatch See Detail 11/18/24 11:17: Lactic Acid < 1.0 11/18/24 16:50: WBC 8.2, RBC 2.81 L, Hgb 8.7 L, Hct 26.3 L, MCV 93.6 D, MCH 31.0, MCHC 33.1 D, RDW Std Deviation 53.8 H, RDW Coeff of Manjit 16.1 H, Plt [id number] L, MPV 8.8, Immature Gran % (Auto) 0.600, Neut % (Auto) 77.4 H, Lymph % (Auto) 11.4 L, Hawkins % (Auto) 9.4, Eos % (Auto) 0.7, Baso % (Auto) 0.5, Absolute Neuts (auto) 6.3, Absolute Lymphs (auto) 0.93, Nucleated RBC % 0, Sodium 139, Potassium 4.9, Chloride 109 H, Carbon Dioxide 22.1, Anion Gap 8, BUN 62 H, Creatinine 1.60 H, Estim Creat Clear Calc 36.55 L, Est GFR (MDRD) Non-Af 45 L, BUN/Creatinine Ratio 38.9 H, Glucose 112 H, Calcium 8.0 11/19/24 05:13: WBC 6.0, RBC 2.34 L, Hgb 7.1 L, Hct 21.9 L, MCV 93.6, MCH 30.3, MCHC 32.4, RDW Std Deviation 53.4 H, RDW Coeff of Manjit 16.0 H, Plt Count 117 L, MPV 9.0, Sodium 139, Potassium 4.8, Chloride 110 H, Carbon Dioxide 21.7, Anion Gap 8, BUN 63 H, Creatinine 1.59 H, Estim Creat Clear Calc 36.32 L, Est GFR (MDRD) Non-Af 45 L, BUN/Creatinine Ratio 39.7 H, Glucose 111 H, Calcium 8.0 Assessment & Plan Assessment/Plan (1) GI bleed: PLAN: Differential diagnosis includes recurrent GI bleeding or duodenal ulcer. He will undergo upper endoscopy. He was explained alternatives, risk and benefits could not withstand bleeding, infection, sepsis, perforation, need for emergent urgent . He will have an ASA of 3. Charges/Coding Visit Charges Inpatient E&M: 54084 Init Hosp L3 11/19/24 1016 <Electronically signed by Kamlesh Friend DO> Cosigner Signature (if applicable): CC: Dr. Padmini Carrasco MD~ Signed [facility] Work Phone: 1(881) 243-310210-13-2025 Consult note Author Jose Cisneros [facility] Note Date/Time November 21, 2024 2 :58pm [facility] Medical Records Department [address] [place] [address] Pre-Anesthesia Evaluation 11/19/24 0910 MR#: [id number] Acct: [id number] Name: ABELARDO IVORY Rep #:[id number] : 1950 74 From: Jose Cisneros MD PCP: Dr. Padmini Carrasco MD Status :ADM IN Y Race: C Location: [place] [address] 0-1 ASA Classification* ASA Classification ASA Classification: 3 Assessment & Plan Anesthesia* Anesthesia Assessment Anesthesia [...] risk assessments. Anesthesia Type Anesthesia Type: MAC Anesthesia Focused Assessment* Temperature: 97.8 F Pulse Rate: 75 Blood Pressure: 121/57 Respiratory Rate: 12 Pulse Ox: 96 Oxygen Flow Rate (L/min): 3 Airway Assessment Mouth opens: >3 cm Mallampati Score: II Labs Anesthesia Preop lab: CBC WBC, (4.4-11.0) 6.0 K/mm3 Today, 05:13 RBC, (4.6-6.2) 2.34 M/mm3 L Today, 05:13 Hgb, (13.0-16.5) 7.1 g/dL L Today, 05:13 Hct, (40-54) 21.9 % L Today, 05:13 Plt Count, (150-450) 117 K/mm3 L Today, 05:13 CHEMISTRY Potassium, (3.3-5.1) 4.8 mmol/L Today, 05:13 Sodium, (133-145) 139 mmol/L Today, 05:13 Magnesium, (1.5-2.2) 2.1 mg/dL 11/07/24, 17:57 Phosphorus, (2.7-4.5) 4.5 mg/dL 11/07/24, 17:57 BUN, (4-19) 63 mg/dL H Today, 05:13 Creatinine, (0.70-1.20) 1.59 mg/dL H Today, 05:13 Glucose, (70-99) 111 mg/dL H Today, 05:13 TSH, (0.300-4.200) 3.680 uIU/mL 05/10/24, 15:16 COAG PT, (11.7-14.9) 13.8 SECONDS 11/18/24, 01:30 Pre-Assessment Diagnosis/Proposed Procedure Planned Operative Procedure(s): EGD Anesthesia History Anesthesia History - interlocking installer: Anesthesia History - interlocking installer Hx Hospitalization No 06/15/24 08:41 Any Problems With Anesthesia No 06/15/24 08:41 Cholinesterase deficiency No 06/15/24 08:41 You/Your Family Experience No 06/15/24 08:41 fever (hyperthermia) with Relationship Recent Exposure to Contagious No 06/27/24 06:57 Disease Does patient have nerve No 06/15/24 08:41 stimulator Patient instructed to have device shut off --Does patient have Pacemaker No 11/19/24 08:59 or ICD? When Was Last Pacemaker Check QUESTION #4 FULL TEXT: You/Your Family Experience fever (hyperthermia) with Anesthesia Last Oral Intake Last Oral intake: Last Oral Intake NPO since 00:00 11/19/24 08:59 Meds taken in AM with sips of water? Meds patient instructed to take am of surgery PONV PONV - interlocking installer: PONV - interlocking installer Female HX of Motion Sickness HX of N/V After Surgery Non-Smoker Duration of Surgery greater than 60 minutes Number of Risk Factors PONV Score Height & Weight Height & Weight: Anesthesia: Height & Weight Height 5 ft 6 in 11/19/24 08:59 Weight: 63 kg 11/19/24 08:59 Body Mass Index (BMI) 22.4 11/19/24 08:59 Respiratory Assessment Respiratory Assessment - interlocking installer: Respiratory Tract Infection Hx - interlocking installer Hx Respiratory Tract Infection No 06/15/24 08:41 STOP Sleep Apnea STOP Sleep Apnea - interlocking installer: STOP Sleep Apnea - interlocking installer Hx Hypertension Yes 11/18/24 18:22 Hx Sleep Apnea No 11/18/24 18:22 CPAP BIPAP Do you snore loudly (louder No 11/18/24 18:22 than talking or can be heard Do you often feel tired/ No 11/18/24 18:22 fatigued/ sleepy during daytime? Has anyone observed you stop No 11/18/24 18:22 breathing during sleep? STOP Results Negative 11/18/24 18:22 QUESTION #5 FULL TEXT : Do you snore loudly (louder than talking or can be heard through closed doors)? Tobacco Use History Tobacco Use History - interlocking installer: Tobacco Use History - interlocking installer Tobacco Use Smoking Status Former smoker 11/18/24 20:32 Hx Tobacco Use Yes 11/18/24 18:22 Years Smoking Packs Smoked per Day Smoking Cessation Date was Yes - quit smoking within 15 11/18/24 18:22 within the last 15 years years Hx Smoking Cessation Date Hx Smoking Cessation Counseling Hematologic Medial History Hematologic Hx - interlocking installer: Hematologic Medical Hx - conflicts analyst Hx of Blood Transfusion Yes 11/18/24 18:22 Hx of Transfusion in last 3 Yes 11/18/24 18:22 Months Date of Last Transfusion (if 11/18/24 11/18/24 18:22 within last 3 months) Ever experience any problems No 11/18/24 18:22 with transfusion(s)? Specify any problems Hx of Preganancy in last 3 N/A 11/18/24 18:22 Months Nurse Filling Out Transfusion NBILANCIN 11/18/24 18:22 & Questions: Date: 11/18/24 11/18/24 18:22 Time: 18:25 11/18/24 18:22 Patient unable to answer at this time (ie. confused, unrespo /Reproduction History /Reproductive History - interlocking installer: /Reproductive Hx- interlocking installer Hx Now Gestational Age (in weeks): EDC: Hx Hx Para Hx Section SAB Active Medications Active Medications: Current Medications Generic Name Dose Route Start Last Admin Trade Name Freq PRN Reason Stop Dose Admin Acetaminophen 650 mg 11/18/24 18:29 Acetaminophen 325 Mg Tablet PO Q6H PRN PRN Pain 1-10 Or Fever>100.7 Albuterol/Ipratropium 3 ml 11/18/24 18:45 11/19/24 06:50 Ipratropium/Albuterol Sulfate 3 Ml Ampul.Neb INHALATION 3 ml Q6HWA.RT YARY Administration Atorvastatin Calcium 10 mg 11/18/24 22:00 11/18/24 22:01 Atorvastatin Calcium 10 Mg Tablet PO 10 mg QHS YARY Administration Budesonide 0.5 mg 11/18/24 18:45 11/19/24 06:53 Budesonide Respules 0.5 Mg/2 Ml Ampul.Neb. INHALATION 0.5 mg Q12H.RT YARY Administration Cholecalciferol 25 mcg 11/19/24 10:00 11/19/24 08:23 Cholecalciferol (Vit D3) 25 Mcg Tablet (1,000 Units) PO 25 mcg DAILY YARY Administration Pantoprazole Sodium 80 mg/ 100 mls @ 10 mls/hr 11/18/24 02:07 11/18/24 23:21 Sodium Chloride CONT INF 10 mls/hr Q10H YARY Administration Sodium Chloride 250 mls @ 15 mls/hr 11/18/24 18:28 IV .[id number] PRN Saline Flush Sodium Chloride 250 mls @ 15 mls/hr 11/18/24 18:28 IV .[id number] PRN Additional IVPB Infusion Lactated Ringer's 1,000 mls @ 15 mls/hr 11/19/24 09:00 IV .Q48H YARY Melatonin 3 mg 11/18/24 18:29 Melatonin 3 Mg Tablet PO QHS PRN PRN INSOMNIA Ondansetron HCl 4 mg 11/18/24 18:29 Ondansetron 4 Mg/2 Ml Vial IV Q8H PRN PRN NAUSEA/VOMITING Sodium Chloride 10 - 40 ml 11/18/24 18:28 0.9% Saline Lock 10 Ml Syringe IV UD PRN SALINE FLUSH PFSH Medical History Bladder cancer Wears dentures Wears glasses Bruising Easy bruising High cholesterol Smoker Shortness of breath on exertion History of echocardiogram Cardiology follow-up encounter Stage 3b chronic kidney disease (CKD) Thrombocytopenia Chronic kidney insufficiency Pleural effusion Secondary pulmonary arterial hypertension Atherosclerotic heart disease of [place] coronary artery without angina pectoris Intention tremor Carotid stenosis, bilateral Hyperlipidemia Nonrheumatic aortic (valve) stenosis Essential hypertension Tobacco dependence Bilateral inguinal hernia Left carotid bruit Abdominal aortic aneurysm (AAA) Anemia Subcutaneous mass of back PUD (peptic ulcer disease) Cough Arthritis Home Medications ?Medication ?Instructions ?Recorded ?Last Taken ?Type aspirin 81 mg tablet,delayed 81 mg PO DAILY heart heal th 03/02/22 01/12/24 History release Held on 11/18/24. Instructions: MD Ordered rosuvastatin 5 mg tablet (Crestor) 5 mg PO DAILY uzma sterol 03/02/22 03/02/22 History amlodipine 5 mg tablet 5 mg PO DAILY #30 tabs 02/28 Unknown Rx cholecalciferol (vitamin D3) 25 25 mcg PO DAILY supple ment 10/27/23 Unknown History mcg (1,000 unit) capsule metoprolol tartrate 25 mg tablet 12.5 mg (1/2 x 25 mg) PO BID #90 03/22/24 06/27/24 05:30 Rx tabs acetaminophen 500 mg capsule 1,000 mg PO Q6H PRN pain 06/13/24 Unknown History OXYGEN - Supplemental ([facility] 11/19/24 Unknown History INFORMATIONAL USE ONLY) Allergy/AdvReac Type Severity Reaction Status Date / Time No Known Allergies Allergy Verified 11/07/24 15:31 Family History Sister Asthma Mother Arthritis Diabetes Brother Cancer Unsure what kind- "just a lump on his neck" Surgical History Neoplasm of bladder Hx of inguinal hernia repair S/P inguinal hernia repair History of cardiac catheterization S/P AAA repair 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) History of left heart catheterization (11/27/18) History of aortic valve replacement (02/12/19) Social History household members: none Smoking Status: Former smoker quit status: has quit before alcohol intake: never substance use type: does not use caffeine: Yes Type: coffee Number of servings: 3 what type of physical activity do you participate in: other frequency: 3-4 times per week seatbelt use: always Review of Systems (Anesthesia) ROS Narrative System reviewed and no additional complaints, except as documented. 11/19/24 0910 <Electronically signed by Jose Cisneros MD > Date _ Jose Jackson Signature: Date CC: ~ Signed [facility] Work Phone: 1(665) 134-694010-12-2025 History and physical note Author Chet Valdivia [facility] Note Date/Time November 18, 2024 6 :38pm [facility] Medical Records Department [address] [place] [address] H&P Exam - Hospitalist 11/18/24 1728 MR#: [id number] Acct: [id number] Name: ABELARDO IVORY Rep #:[id number] : 1950 74 From: Chet ro DO PCP: Dr. Padmini Carrasco MD Status :ADM IN Location: [place] [address] HPI - General General Date of Admission: 11/18/24 Date of Service: 11/18/24 Chief Complaint: Recurrent upper GI bleed HPI Narrative ABELARDO IVORY, is a 74 M who presented to [facility] ED on 11/18/2024 with recurrent upper GI bleed. Patient was initially hospitalized here on 11/07 for severe acute upper GI bleed. Urgent EGD showed red blood in the entire stomach and a spurting duodenal ulcer with a visible vessel that was injected and treated with heater probe. Patient required 2 units of blood at that time. Given the significance of the bleed, patient was transferred to [facility] for further evaluation. Per patient and family report, he was observed there for about 3 days without any recurrence of bleeding and was then able to be discharged home. Patient awoke early on the morning of 11/18 with abdominal pain and had a bout of emesis that was dark in color. He then passed a large dark bowel movement, so he came to the ED for further evaluation. On arrival his hemoglobin was 6.0, down from 9.8 on 11/15. CT abdomen pelvis showeddiffuse thickening of the stomach from probable gastritis with acute hemorrhagicproducts in the gastric lumen, along with mild wall thickening inflammatory changes involving the proximal duodenum. Blood transfusion was initiated and EDphysician discussed case with Dr. Floyd, who noted that given the recurrent nature of his bleeding, he may require a surgical invention for definitive management of the ulcer and that type of procedure would not be performed at [facility]. Thus, transfer to [facility] was initiated and patient was accepted for transfer. He was given 3 units of blood here with repeat hemoglobin 8.7, and he had no further episodes of emesis or dark stools. Transfer has been delayed so hospitalist was contacted for admission. I saw thepatient at bedside in the ED. Patient was sitting back comfortably in bed, conversing normally, in no acute distress. He denied any acute abdominal pain or discomfort currently. Denied any other acute concerns at this time. Will beadmitted for further management. [facility] Medical History Bladder cancer Wears dentures Wears glasses Bruising Easy bruising High cholesterol Smoker Shortness of breath on exertion History of echocardiogram Cardiology follow-up encounter Stage 3b chronic kidney disease (CKD) Thrombocytopenia Chronic kidney insufficiency Pleural effusion Secondary pulmonary arterial hypertension Atherosclerotic heart disease of [place] coronary artery without angina pectoris Intention tremor [...] Arthritis Diabetes Brother Cancer Unsure what kind- "just a lump on his neck" Surgical History Neoplasm of bladder Hx of inguinal hernia repair S/P inguinal hernia repair History of cardiac catheterization S/P AAA repair 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) History of left heart catheterization (11/27/18) History of aortic valve replacement (02/12/19) Social History (Updated 11/07/24 @ 20:[address] Suzanne Medley MD) household members: none Smoking Status: Former smoker quit status: has quit before alcohol intake: never substance use type: does not use caffeine: Yes Type: coffee Number of servings: 3 what type of physical activity do you participate in: other frequency: 3-4 times per week seatbelt use: always ROS Constitutional Constitutional: Denies chills, fatigue, fever(s) or weakness Eyes Eyes: Denies change in vision Cardiovascular Cardiovascular: Denies chest pain Respiratory/Chest Respiratory/Chest: Denies shortness of breath at rest Gastrointestinal Gastrointestinal: Denies abdominal pain, nausea or vomiting Musculoskeletal Musculoskeletal: Denies arthralgias or myalgias Neurologic Neurologic: Denies dizziness, focal weakness or headache(s) Vital Signs Vital Signs Vital Signs: 11/18/24 01:48 11/18/24 01:54 11/18/24 02:23 Temperature 95.9 F L 95.9 F L 95.9 F L Temperature Source Axillary Axillary Oral Pulse Rate 73 74 72 Respiratory Rate 25 H 18 18 Blood Pressure 84/55 L 84/55 L 101/63 Blood Pressure Mean 64 64 75 Blood Pressure Source Monitor Blood Pressure Position Supine Blood Pressure Location Right Arm Pulse Ox 99 Oxygen Delivery Method Room Air Room Air Oxygen Flow Rate (L/min) 11/18/24 02:26 11/18/24 02:38 11/18/24 03:00 Temperature 96.2 F L 96.0 F L Temperature Source Oral Oral Pulse Rate 73 74 78 Respiratory Rate 18 18 18 Blood Pressure 101/63 101/57 L 101/51 L Blood Pressure Mean 75 71 67 Blood Pressure Source Monitor Blood Pressure Position Supine Blood Pressure Location Right Arm Pulse Ox 100 98 100 Oxygen Delivery Method Room Air Room Air Room Air Oxygen Flow Rate (L/min) 11/18/24 03:38 11/18/24 03:54 11/18/24 04:00 Temperature 96.0 F L 96.0 F L 96.0 F L Temperature Source Oral Oral Oral Pulse Rate 70 71 70 Respiratory Rate 16 18 18 Blood Pressure 135/58 H 98/57 L 114/58 L Blood Pressure Mean 83 70 76 Blood Pressure Source Monitor Monitor Blood Pressure Position Semi-Fowlers Semi-Fowlers Blood Pressure Location Right Arm Right Arm Pulse Ox 99 98 98 Oxygen Delivery Method Room Air Room Air Room Air Oxygen Flow Rate (L/min) 11/18/24 04:04 11/18/24 04:09 11/18/24 04:19 Temperature 96.1 F L 96.0 F L 96.0 F L Temperature Source Oral Oral Oral Pulse Rate 86 81 75 Respiratory Rate 18 18 18 Blood Pressure 129/84 H 129/84 H 116/63 Blood Pressure Mean 99 99 80 Blood Pressure Source Monitor Blood Pressure Position Semi-Fowlers Blood Pressure Location Right Arm Pulse Ox 98 95 98 Oxygen Delivery Method Room Air Room Air Room Air Oxygen Flow Rate (L/min) 11/18/24 04:34 11/18/24 04:49 11/18/24 05:00 Temperature 96.0 F L 98.2 F Temperature Source Oral Oral Pulse Rate 68 86 74 Respiratory Rate 18 18 18 Blood Pressure 90/58 L 130/61 H 100/66 Blood Pressure Mean 68 84 77 Blood Pressure Source Blood Pressure Position Blood Pressure Location Pulse Ox 99 96 98 Oxygen Delivery Method Room Air Room Air Room Air Oxygen Flow Rate (L/min) 11/18/24 05:06 11/18/24 05:09 11/18/24 05:47 Temperature 98.2 F 98.0 F 98.0 F Temperature Source Oral Oral Oral Pulse Rate 69 71 68 Respiratory Rate 18 18 18 Blood Pressure 100/66 99/62 121/63 H Blood Pressure Mean 77 74 82 Blood Pressure Source Monitor Monitor Monitor Blood Pressure Position Semi-Fowlers Semi-Fowlers Semi-Fowlers Blood Pressure Location Right Arm Right Arm Right Arm Pulse Ox 98 98 97 Oxygen Delivery Method Room Air Room Air Room Air Oxygen Flow Rate (L/min) 11/18/24 05:53 11/18/24 06:00 11/18/24 06:08 Temperature 98.0 F 97.7 F L Temperature Source Oral Oral Pulse Rate 67 68 70 Respiratory Rate 18 18 18 Blood Pressure 116/64 119/64 132/67 H Blood Pressure Mean 81 82 88 Blood Pressure Source Monitor Monitor Blood Pressure Position Semi-Fowlers Semi-Fowlers Blood Pressure Location Right Arm Right Arm Pulse Ox 96 97 98 Oxygen Delivery Method Room Air Room Air Room Air Oxygen Flow Rate (L/min) 11/18/24 06:15 11/18/24 07:12 11/18/24 07:39 Temperature 97.9 F 97.5 F L Temperature Source Oral Oral Pulse Rate 68 67 68 Respiratory Rate 18 15 17 Blood Pressure 127/67 H 120/61 136/67 H Blood Pressure Mean 87 80 90 Blood Pressure Source Monitor Monitor Blood Pressure Position Semi-Fowlers Semi-Fowlers Blood Pressure Location Right Arm Right Arm Pulse Ox 99 98 99 Oxygen Delivery Method Room Air Nasal Cannula Room Air Oxygen Flow Rate (L/min) 2 11/18/24 09:00 11/18/24 10:00 11/18/24 11:00 Temperature Temperature Source Pulse Rate 65 72 66 Respiratory Rate 19 H 20 H 15 Blood Pressure 120/68 116/61 112/58 L Blood Pressure Mean 85 79 76 Blood Pressure Source Blood Pressure Position Blood Pressure Location Pulse Ox 97 97 96 Oxygen Delivery Method Room Air Room Air Room Air Oxygen Flow Rate (L/min) 11/18/24 12:00 11/18/24 13:00 11/18/24 14:00 Temperature Temperature Source Pulse Rate 73 80 84 Respiratory Rate 18 18 18 Blood Pressure 125/61 H 109/83 H 106/65 Blood Pressure Mean 82 91 78 Blood Pressure Source Blood Pressure Position Blood Pressure Location Pulse Ox 98 98 97 Oxygen Delivery Method Room Air Oxygen Flow Rate (L/min) 11/18/24 15:00 11/18/24 16:00 11/18/24 17:00 Temperature Temperature Source Pulse Rate 69 71 74 Respiratory Rate 19 H 18 21 H Blood Pressure 103/64 115/53 L Blood Pressure Mean 77 73 Blood Pressure Source Blood Pressure Position Blood Pressure Location Pulse Ox 97 99 100 Oxygen Delivery Method Nasal Cannula Oxygen Flow Rate (L/min) Weight Weight: 65.2 kg Body Mass Index (BMI) 23.1 Physical Exam Const alert, oriented x3, no apparent distress and average body habitus Constitutional Narrative: Elderly male, mildly fatigued appearing but otherwise sitting back comfortably in bed, conversing normally, in no acute distress. General Appearance: cooperative and comfortable HEENT normocephalic, head/scalp atraumatic, hearing grossly normal bilaterally, nasal mucous membranes and turbinates normal and moist oral mucous membranes Eyes PERRL, EOMs intact bilaterally and conjunctivae normal Neck full ROM Chest inspection of chest normal Resp normal respiratory effort, normal air movement, no use of accessory muscles and clear to auscultation bilaterally Cardio regular rate, regular rhythm, no murmurs and peripheral pulses 2+ throughout GI normal to inspection, nondistended, normoactive bowel sounds, soft to palpation,non-tender and non-distended Back/Spine normal ROM Extremity normal to inspection, full ROM and no pedal edema Skin no rashes or lesions noted Psych mental status grossly normal Results Lab / Micro Data 11/18/24 16:50 11/18/24 16:50 Labs: Laboratory Results - last 24 hr 11/18/24 01:30: WBC 11.2 H, RBC 1.96 L, Hgb 6.0 L*, Hct 19.5 L, MCV 99.5 H, MCH 30.6, MCHC 30.8 L, RDW Std Deviation 59.5 H, RDW Coeff of Manjit 16.4 H, Plt Count 239, MPV 9.0, Immature Gran % (Auto) 0.800, Neut % (Auto) 73.2 H, Lymph % (Auto)13.9 L, [place] % (Auto) 10.9 H, Eos % (Auto) 0.8, Baso % (Auto) 0.4, Absolute Neuts (auto) 8.2 H, Absolute Lymphs (auto) 1.56, Nucleated RBC % 0, PT 13.8, INR1.0, APTT 23.8 L, Sodium 138, Potassium 5.3 H, Chloride 104, Carbon Dioxide 21.7, Anion Gap 13, BUN 65 H, Creatinine 1.89 H, Estim Creat Clear Calc 30.94 L,Est GFR (MDRD) Non-Af 37 L, BUN/Creatinine Ratio 34.2 H, Glucose 182 H, Calcium 8.4 11/18/24 02:14: Lactic Acid 3.7 H*, Blood Type A POSITIVE, Antibody Screen NEGATIVE, Crossmatch See Detail 11/18/24 02:14: Crossmatch See Detail 11/18/24 04:10: Urine Color Yellow, Urine Clarity Clear, Urine pH 6.0, Ur Specific [place] 1.010, Urine Protein 100 H, Urine Glucose (UA) Normal, Urine Ketones Negative, Urine Occult Blood 25 H, Urine Nitrite Positive H, Urine Bilirubin 1 H, Urine Urobilinogen 1 H, Ur Leukocyte Esterase 25 H, Urine RBC 0 SEEN, Urine WBC 10-25 SEEN, Ur Squamous Epith Cells 0 SEEN, Urine Bacteria 1+, Hyaline Casts 0-5 SEEN, Urine Mucus 0 SEEN 11/18/24 05:52: Lactic Acid 1.1 11/18/24 11:17: Lactic Acid < 1.0 11/18/24 16:50: WBC 8.2, RBC 2.81 L, Hgb 8.7 L, Hct 26.3 L, MCV 93.6 D, MCH 31.0, MCHC 33.1 D, RDW Std Deviation 53.8 H, RDW Coeff of Manjit 16.1 H, Plt [id number] L, MPV 8.8, Immature Gran % (Auto) 0.600, Neut % (Auto) 77.4 H, Lymph % (Auto) 11.4 L, Hawkins % (Auto) 9.4, Eos % (Auto) 0.7, Baso % (Auto) 0.5, Absolute Neuts (auto) 6.3, Absolute Lymphs (auto) 0.93, Nucleated RBC % 0 Micro: Microbiology 11/18/24 02:10 Stool Stool Occult Blood (ASIF) - Final Occult Blood Positive Imaging Radiology Impression Abdomen/Pelvis CTA 11/18/24 02:03 IMPRESSION: No CT evidence for active gastrointestinal hemorrhage. Diffuse thickening of the stomach, probably gastritis. Acute hemorrhagic products in the gastric lumen. Mild wall thickening and inflammatory changes involving the proximal duodenum, and distal rectosigmoid colon suggestive of enterocolitis. Nonspecific diarrheal illness with fluid in the colon. Marked wall thickening of the bladder with surrounding inflammatory fat stranding, may be infectious/inflammatory or related to known neoplasm. Possibly treatment related change. Similar mild left hydroureteronephrosis. Evidence of left ureteritis/pyelitis. Stable appearance of irregular diffuse fusiform aneurysmal dilatation of the infrarenal abdominal aorta and bilateral common iliac arteries, with eccentric noncalcified plaque/mural thrombus. [facility]-Ray 11/18/24 03:00 IMPRESSION: No evidence for acute abnormality. [facility] Assessment & Plan Assessment/Plan (1) GI bleed: (2) Acute blood loss anemia: PLAN: Plan Patient is a 74-year-old male who presented to [facility] ED on 11/18/2024 with a recurrent upper GI bleed. 1. Recurrent upper GI bleed due to peptic ulcer disease with acute blood loss anemia ? Admit under inpatient status to PCU. See HPI for further details on recent history. In short, presented here on 11/07 with acute severe upper GI bleed withhemorrhagic shock due to acute blood loss anemia. Urgent EGD showed red blood in the entire stomach and a spurting duodenal ulcer with a visible vessel that was injected and treated with heater probe. He was then transferred to [facility] for further management. No recurrence of bleed there and he was discharged home 3 days later. Presented on morning of 11/18 with an episode of coffee-ground emesis followed by a large dark stool. Hemoglobin 6.0 in the ED, down from 9.8 on 11/15. Lactate 3.7 and BP borderline low presumed due to blood loss. CTA abdomen pelvis diffuse thickening of the stomach from probable gastritis with acute hemorrhagic products in the gastric lumen, along with mild wall thickening inflammatory changes involving the proximal duodenum. Started on Protonix drip and given 3 units packed blood cells with repeat hemoglobin 8.7. Has had no further episodes of emesis or dark stools. ED physician discussed case with Dr. Floyd who recommended transfer back to [facility] aspatient may need definitive surgical management for his recurrent upper GI bleed. Will continue PPI drip for now. Follow-up a.m. CBC. Will keep n.p.o. with sips and chips for now. Will transfer to [facility] once bed is available. 2. Recent history of bladder cancer s/p TUBR on active chemotherapy and radiation therapy ? Follows with Dr. Winston and Dr. Dawkins. Had bladder tumor resected in June of this year. Last chemotherapy was on 10/19 and last session of radiation therapy was on 10/22. No inpatient needs, continue close outpatient follow-up. 3. Hypertension, hyperlipidemia, history of CABG, history of bioprosthetic AVR,history of AAA repair ? Follows with [facility], last office visit in August. History of CABG x1 and bioprosthetic AVR in 2019, as well as AAA repair in 2021. Hypotensive to the 80s systolic on arrival to the ED due to upper GI bleed as above. BP improved to the 100s to 110s systolic after blood transfusion. Will hold home aspirin, amlodipine, and Lopressor. Okay to continue home statin. 4. CKD stage IIIb ? Creatinine 1.89 on arrival to the ED, baseline 1.6-1.7. Creatinine improved to 1.60 after blood transfusion. Follow-up a.m. BMP and monitor urine output. 5. COPD ? Stable on room air at rest, not in acute exacerbation. Continue home long- acting inhaler. 6. History of tobacco abuse ? Encouraged continued cessation. DVT prophylaxis: SCDs CODE STATUS: DNR CCA, DNI Expected disposition: Transfer to [facility] Total clinical time spent by myself addressing the patient's medical issues, reviewing all the data, and collaborating with patient's care team: 76 minutes. Charges/Coding Visit Charges Inpatient E&M: 58286 Init Hosp L3 11/18/248 <Electronically signed by Chet Valdivia DO> Cosigner Signature (if applicable): CC: Dr. Chet Valdivia DO; Dr. Padmini Carrasco MD~ Signed [facility] Work Phone: [phone]) 561-627910-12-2025 Progress note Author Chet Valdivia [facility] Note Date/Time November 18, 2024 5 :39pm [facility] Medical Records Department [address] [place] [address] Progress Note - Hospitalist 11/18/24 1853 MR#: [id number] Acct: [id number] Name: ABELARDO IVORY Rep #:[id number] : 1950 74 From: Chet ro DO PCP: Dr. Padmini Carrasco MD Status :REG ER Location: ED Hospitalist Note Patient was evaluated in the Emergency Department at [facility] on 11/17. At the time of evaluation, transfer to a tertiary hospital was felt to be in the patient's best interest due to recurrent severe upper GI bleed fromduodenal ulcer with possible need for advanced surgical intervention. Attempts were made by the Emergency Department and/or the Hospitalist team to get patientto the appropriate level of care. Although the pt is accepted for transfer to [facility], there are no staffed beds currently available. Given the need for ongoing medical care, patient will be admitted to [facility] on 11/18, and care will be provided here until [facility] has an available staffed bed. Pt and/or family are aware of the transfer, the reasoning behind the need for transfer, and that until a staffed bed becomes available, we will provide evidence-based care to the best of our abilities, with the limitations of care here being fully addressed. 11/18/24 2363 <Electronically signed by Chet Valdivia DO> Cosigner Signature (if applicable): CC: ~ Signed [facility] Work Phone: 1(355) 735-265710-12-2025 Discharge summary Author Jeffery Turpin [facility] Note Date/Time November 18, 2024 3 :15pm [facility] Medical Records Department [address] [place] [address] Emergency Department Summary 11/18/24 MR#: [id number] Acct: [id number] Name: ABELARDO IVORY Rep #:[id number] : 1950 74 From: Jeffery Turpin DO PCP: Dr. Padmini Carrasco MD Status :REG ER Location: ED ADDENDUM by Dr. Rachana Stinson MD on 11/18/24 at 1515 Patient was signed out to me by Dr. Turpin pending transfer to [facility]. Patient accepted by Dr. Hernandez, hospitalist, at [facility]. Patient hadbeen accepted for 6 hours or greater and I attempted to admit the patient to ourhospitalist here in the interim. The hospitalist I spoke to, Dr. Valdivia, requested that we keep the patient in the Emergency department and wait for a bed at [facility]. This information was conveyed to charge nurse. Will continue to monitor. 11/18/24 2635<Electronically signed by Rachana Stinson MD> Cosigner Signature (if applicable): cc: Dr. Padmini Carrasco MD ~* Signed HPI History of Present Illness Chief Complaint: GI Bleed Informant: patient and family Narrative Narrative: Patient is a 74-year-old male with past medical history of hypertension hyperlipidemia previous aortic valve replacement as well as abdominal aortic aneurysm. He was seen at our hospital on November 07 secondary to an acute GI bleed. Workup at that time revealed the cause of the GI bleed was a actively bleeding duodenal ulcer. He had the ulcer cauterized when he underwent EGD and colonoscopy and then was transferred to [facility] as there was concern he would need further intervention that was not available to our hospital. Patient and family state that at [facility] they simply watched him for 3 days and there was no return of bleeding so he was discharged home. Patient reports last night/this morning he awoke and noted pain in his upper abdomen. Following this he had a bout of emesis which he states was dark in color. He states he then passed a large dark bowel movement. He states this was similar to his recent hospital stay and therefore EMS was called and he was brought in for evaluation. 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 Suzanne Medley MD) household members: none Smoking Status: Former smoker quit status: has quit before alcohol intake: never substance use type: does not use caffeine: Yes Type: coffee Number of servings: 3 what type of physical activity do you participate in: other frequency: 3-4 times per week seatbelt use: always ROS ROS ED Constitutional Constitutional ED: Reports chills and other Details: Positive fatigue ; Denies fever(s) Eyes Eyes: Denies blurry vision or change in vision ENT ENT ED: Denies sore throat Cardiovascular Cardiovascular: Denies chest pain, palpitations or racing heartbeat Respiratory/Chest Respiratory/Chest: Denies cough or dyspnea Gastrointestinal Gastrointestinal: Reports abdominal pain, melena, nausea and vomiting; Denies diarrhea Genitourinary Genitourinary ED: Reports dysuria Musculoskeletal Musculoskeletal: Denies back pain Integumentary Denies rash Neurologic Neurologic: Reports weakness; Denies headache(s) Hematologic/Lymphatic Hematologic/Lymphatic: Denies easy bleeding or easy bruising EXAM Physical Exam Const Vital Signs: 11/18/24 01:48 11/18/24 01:54 11/18/24 02:23 Temperature 95.9 F L 95.9 F L 95.9 F L Temperature Source Axillary Axillary Oral Pulse Rate 73 74 72 Respiratory Rate 25 H 18 18 Blood Pressure 84/55 L 84/55 L 101/63 Blood Pressure Mean 64 64 75 Blood Pressure Source Monitor Blood Pressure Position Supine Blood Pressure Location Right Arm Pulse Ox 99 Oxygen Delivery Method Room Air Room Air Oxygen Flow Rate (L/min) 11/18/24 02:26 11/18/24 02:38 11/18/24 03:00 Temperature 96.2 F L 96.0 F L Temperature Source Oral Oral Pulse Rate 73 74 78 Respiratory Rate 18 18 18 Blood Pressure 101/63 101/57 L 101/51 L Blood Pressure Mean 75 71 67 Blood Pressure Source Monitor Blood Pressure Position Supine Blood Pressure Location Right Arm Pulse Ox 100 98 100 Oxygen Delivery Method Room Air Room Air Room Air Oxygen Flow Rate (L/min) 11/18/24 03:38 11/18/24 03:54 11/18/24 04:00 Temperature 96.0 F L 96.0 F L 96.0 F L Temperature Source Oral Oral Oral Pulse Rate 70 71 70 Respiratory Rate 16 18 18 Blood Pressure 135/58 H 98/57 L 114/58 L Blood Pressure Mean 83 70 76 Blood Pressure Source Monitor Monitor Blood Pressure Position Semi-Fowlers Semi-Fowlers Blood Pressure Location Right Arm Right Arm Pulse Ox 99 98 98 Oxygen Delivery Method Room Air Room Air Room Air Oxygen Flow Rate (L/min) 11/18/24 04:04 11/18/24 04:09 11/18/24 04:19 Temperature 96.1 F L 96.0 F L 96.0 F L Temperature Source Oral Oral Oral Pulse Rate 86 81 75 Respiratory Rate 18 18 18 Blood Pressure 129/84 H 129/84 H 116/63 Blood Pressure Mean 99 99 80 Blood Pressure Source Monitor Blood Pressure Position Semi-Fowlers Blood Pressure Location Right Arm Pulse Ox 98 95 98 Oxygen Delivery Method Room Air Room Air Room Air Oxygen Flow Rate (L/min) 11/18/24 04:34 11/18/24 04:49 11/18/24 05:00 Temperature 96.0 F L 98.2 F Temperature Source Oral Oral Pulse Rate 68 86 74 Respiratory Rate 18 18 18 Blood Pressure 90/58 L 130/61 H 100/66 Blood Pressure Mean 68 84 77 Blood Pressure Source Blood Pressure Position Blood Pressure Location Pulse Ox 99 96 98 Oxygen Delivery Method Room Air Room Air Room Air Oxygen Flow Rate (L/min) 11/18/24 05:06 11/18/24 05:09 11/18/24 05:47 Temperature 98.2 F 98.0 F 98.0 F Temperature Source Oral Oral Oral Pulse Rate 69 71 68 Respiratory Rate 18 18 18 Blood Pressure 100/66 99/62 121/63 H Blood Pressure Mean 77 74 82 Blood Pressure Source Monitor Monitor Monitor Blood Pressure Position Semi-Fowlers Semi-Fowlers Semi-Fowlers Blood Pressure Location Right Arm Right Arm Right Arm Pulse Ox 98 98 97 Oxygen Delivery Method Room Air Room Air Room Air Oxygen Flow Rate (L/min) 11/18/24 05:53 11/18/24 06:00 11/18/24 06:08 Temperature 98.0 F 97.7 F L Temperature Source Oral Oral Pulse Rate 67 68 70 Respiratory Rate 18 18 18 Blood Pressure 116/64 119/64 132/67 H Blood Pressure Mean 81 82 88 Blood Pressure Source Monitor Monitor Blood Pressure Position Semi-Fowlers Semi-Fowlers Blood Pressure Location Right Arm Right Arm Pulse Ox 96 97 98 Oxygen Delivery Method Room Air Room Air Room Air Oxygen Flow Rate (L/min) 11/18/24 06:15 11/18/24 07:12 Temperature 97.9 F 97.5 F L Temperature Source Oral Oral Pulse Rate 68 67 Respiratory Rate 18 15 Blood Pressure 127/67 H 120/61 Blood Pressure Mean 87 80 Blood Pressure Source Monitor Monitor Blood Pressure Position Semi-Fowlers Semi-Fowlers Blood Pressure Location Right Arm Right Arm Pulse Ox 99 98 Oxygen Delivery Method Room Air Nasal Cannula Oxygen Flow Rate (L/min) 2 Positive well nourished and well developed Constitutional Narrative: Patient is ill-appearing General Appearance ED: well developed and pallor HEENT Reports dry mucous membranes HEENT Narrative: Normocephalic atraumatic No tongue or lip swelling no oral lesions no airway edema or compromise No dried blood or active bleeding noted in the posterior pharynx Mucous membranes are dry and tacky There is mild cyanosis noted to the lips Mouth ED: Yes dry mucous membranes Mouth: dry mucous membranes Eyes PERRL and EOMs intact bilaterally Eyes Narrative: Positive subconjunctival pallor bilaterally General Eye ED: Yes pale conjunctiva; Negative for scleral icterus Neck supple Neck Narrative: No crepitance palpated of the anterior neck No pain with external manipulation of the thyroid cartilage Resp Resp Narrative: Patient is tachypneic and breath sounds are diminished throughout with faint expiratory wheeze and rhonchi consistent with history of COPD Cardio regular rate and regular rhythm GI non-distended and no masses GI Narrative: Abdomen is soft and nondistended with normal active bowel sounds. There is mildpain with palpation in the midepigastric region. However no voluntary guarding or rigidity. No pulsatile mass. No peritoneal signs. No increased tympany. Auscultation: normoactive bowel sounds Palpation: soft Narrative: Rectal tone is normal. No external hemorrhoids or anal fissure noted. No internal masses palpated. Stool is melanotic in color and Hemoccult positive. Extremity normal to inspection Neuro oriented x3 and CN's II-XII intact bilaterally Sensorium / Orientation: alert Psych mental status grossly normal Skin Skin Narrative: Patient's skin is pale and cool with delayed capillary refill. General Skin Exam: pallor MDM MDM MDM Narrative Medical decision making narrative: Patient arrived to the ER hypotensive with significant pallor but was awake and alert. He reported abdominal discomfort with 1 bout of vomiting as well as a large bowel movement both were melanotic in color. His previous admission/workup was reviewed. With the EGD documenting significant gastritis causing a duodenal ulcer with active bleeding this is most likely the cause of his symptoms this morning. Secondary to this he was given a Protonix bolus and started on Protonix drip. He is hypotensive upon arrival and therefore 1 L of normal saline was started and he was given 1 unit of trauma blood while laboratory studies and imaging were obtained. The patient's hemoglobin has dropped from 9.8 November 15 to 6.0 today consistent with acute blood loss anemia. His BUN has increased from 26 on November 15 to 65 today also consistent with upper GI bleed. The patient's urine sample did show changes concerning for infection and therefore was sent for culture and he was started on Rocephin. The patient's lactic acid value is elevated but I feel this is related to acute blood loss anemia and ischemia and not due to infection and therefore I do not feel the need for blood cultures. The CTA of the of the abdomen and pelvis revealed acute hemorrhagic contents within the gastric lumen consistent with hissymptoms as well as history of duodenal ulcer however there is no findings of active GI bleeding at the time of the CT scan. The case was discussed with registered associate Dr. Floyd who saw the patient at his previous hospital visitand performed his EGD and colonoscopy. He states that with the recurrent natureof his bleeding that he may require a surgical intervention to resolve the ulcerand that type of procedure would not be performed at our institution and therefore he recommends transfer. As the patient was just admitted to [facility] I did contact them once again. The case was discussed with the ICU mds manager Dr. Laws. He agrees that the patient needs to come to [facility] for continued evaluation and treatment of his recurrent GI bleed. He states however that as the patient's blood pressure is improving with the treatment provided that he would like us to complete our treatment course of 3 units of blood prior to his decision about whether the patient will require ICU placement or not. He states that if the patient completes his 3 units of blood and his blood pressure remained stable and he does not have reoccurrence of vomiting or melena but [facility] However if after receiving his transfusion his blood pressure begins to drop or he has recurrent symptoms then he will need ICU placement. At this time the patient's treatment is still in the process of being completed and therefore he will be signed out to the day physician Dr. Stinson. History & Record Review Discussion w/independent historian: Patient and Family Additional record(s) reviewed:: Prior inpatient record, Prior ED visit and Priorlabs Lab Data Attestation: I reviewed the patient's lab results. Labs: Laboratory Results - last 24 hr 11/18/24 11/18/24 11/18/24 01:30 02:14 02:14 WBC 11.2 H RBC 1.96 L Hgb 6.0 L* Hct 19.5 L MCV 99.5 H MCH 30.6 MCHC 30.8 L RDW Std Deviation 59.5 H RDW Coeff of Manjit 16.4 H Plt Count 239 MPV 9.0 Immature Gran % (Auto) 0.800 Neut % (Auto) 73.2 H Lymph % (Auto) 13.9 L Hawkins % (Auto) 10.9 H Eos % (Auto) 0.8 Baso % (Auto) 0.4 Absolute Neuts (auto) 8.2 H Absolute Lymphs (auto) 1.56 Nucleated RBC % 0 PT 13.8 INR 1.0 APTT 23.8 L Sodium 138 Potassium 5.3 H Chloride 104 Carbon Dioxide 21.7 Anion Gap 13 BUN 65 H Creatinine 1.89 H Estim Creat Clear Calc 30.94 L Est GFR (MDRD) Non-Af 37 L BUN/Creatinine Ratio 34.2 H Glucose 182 H Lactic Acid 3.7 H* Calcium 8.4 Urine Color Urine Clarity Urine pH Ur Specific Ashton Urine Protein Urine Glucose (UA) Urine Ketones Urine Occult Blood Urine Nitrite Urine Bilirubin Urine Urobilinogen Ur Leukocyte Esterase Urine RBC Urine WBC Ur Squamous Epith Cells Urine Bacteria Hyaline Casts Urine Mucus Blood Type A POSITIVE Antibody Screen NEGATIVE Crossmatch See Detail See Detail 11/18/24 11/18/24 04:10 05:52 WBC RBC Hgb Hct MCV MCH MCHC RDW Std Deviation RDW Coeff of Manjit Plt Count MPV Immature Gran % (Auto) Neut % (Auto) Lymph % (Auto) Hawkins % (Auto) Eos % (Auto) Baso % (Auto) Absolute Neuts (auto) Absolute Lymphs (auto) Nucleated RBC % PT INR APTT Sodium Potassium Chloride Carbon Dioxide Anion Gap BUN Creatinine Estim Creat Clear Calc Est GFR (MDRD) Non-Af BUN/Creatinine Ratio Glucose Lactic Acid 1.1 Calcium Urine Color Yellow Urine Clarity Clear Urine pH 6.0 Ur Specific Ashton 1.010 Urine Protein 100 H Urine Glucose (UA) Normal Urine Ketones Negative Urine Occult Blood 25 H Urine Nitrite Positive H Urine Bilirubin 1 H Urine Urobilinogen 1 H Ur Leukocyte Esterase 25 H Urine RBC 0 SEEN Urine WBC 10-25 SEEN Ur Squamous Epith Cells 0 SEEN Urine Bacteria 1+ Hyaline Casts 0-5 SEEN Urine Mucus 0 SEEN Blood Type Antibody Screen Crossmatch Radiography Diagnostic Testing: Clinical Impression(s) from Imaging Studies Abdomen/Pelvis CTA 11/18/24 02:03 IMPRESSION: No CT evidence for active gastrointestinal hemorrhage. Diffuse thickening of the stomach, probably gastritis. Acute hemorrhagic products in the gastric lumen. Mild wall thickening and inflammatory changes involving the proximal duodenum, and distal rectosigmoid colon suggestive of enterocolitis. Nonspecific diarrheal illness with fluid in the colon. Marked wall thickening of the bladder with surrounding inflammatory fat stranding, may be infectious/inflammatory or related to known neoplasm. Possibly treatment related change. Similar mild left hydroureteronephrosis. Evidence of left ureteritis/pyelitis. Stable appearance of irregular diffuse fusiform aneurysmal dilatation of the infrarenal abdominal aorta and bilateral common iliac arteries, with eccentric noncalcified plaque/mural thrombus. Reading Location: [facility] Chest X-Ray 11/18/24 03:00 IMPRESSION: No evidence for acute abnormality. Reading Location[facility] Chest x-ray as interpreted by the emergency medicine physician reveals no acute infiltrate pneumothorax pleural effusion or free air Management Discussion w/another healthcare provider: Rn Transition (Case was discussed with registered associate Dr. Floyd as well as ICU mds manager Dr. Laws) Critical Care Time Critical Care Time: Yes Critical care time (excluding procedures): Discussing w/Patient &/or Family/CareGiver, Discussing w/Consultants, Arranging Admission or Transfer, Performing Direct Patient Care at Bedside and - (Please note critical care time of 53 minutes) Discharge Plan Triage Chief Complaint: GI Bleed ED Provider: Jeffery Turpin Dx/Rx/DC Orders Clinical Impression: Acute upper gastrointestinal hemorrhage, Acute blood loss anemia, Hypovolemic shock, Duodenal ulcer, Chronic kidney disease, COPD (chronic obstructive pulmonary disease), Abdominal aortic aneurysm (AAA), UTI (urinary tract infection) Prescriptions: No Action amlodipine 5 mg tablet [...] 12.5 mg PO BID Qty: 90 3RF Primary Care Provider: Padmini Carrasco Referrals: Padmini Carrasco MD [Primary Care Provider, Family Practice] Print Language: Malian Disposition Disposition: Acute Care Hospital Discharge Location: [facility] What to do if you have Problems For any increased pain, shortness of breath, bleeding, nausea or vomiting, chestpain, or any unexpected problems, contact your Primary Care Provider. Call [facility] ([phone]) or report to the closest Emergency Room. Call 911 if necessary. 11/18/24 0733 <Electronically signed by Jeffery Turpin DO> Cosigner Signature (if applicable): CC: Dr. Padmini Carrasco MD ~ Signed [facility] Work Phone: 1(728) 164-111810-12-2025 Radiology Diagnostic study [facility]10-12-2025 Radiology Diagnostic study [facility]10-05-2025 [facility]10-04-2025 [facility]10-03-2025 [facility]10-02-2025 [facility]10-02-2025 NoteHNO ID: [id number] Author: ABIDA BERRY APRN.TIN STACKER Service: ? Author Type: Nurse Practitioner Type: Progress Notes Filed: 11/08/2024 02:49 Note Text: Critical Care Transport Note Patient Name: Abelardo Ivory Service Date: 11/07/2024 Referring Physician: Jasmyne Accepting Physician: Yakvo Referring Facility: [facility] Accepting Facility: [facility] SUBJECTIVE/CHIEF COMPLAINT: GI Bleed REASON FOR TRANSPORT: [...] treatment for bladder CA who presented to [place] [facility] with c/o bright red bloody stool. [...] physician managing the patient requested transfer to [facility] for tertiary and/or quaternary services unavailable at the referring facility. Patient condition at time of exam was: Acutely ill and critically ill. Due to the unique circumstances of the patient, it was determined that this was the closest, most appropriate facility by referring physician. The physician managing the patient requested the [facility] Critical Care Transport Team transport and treat the patient for the purpose of tertiary care, evaluation, and management of his critical condition(s). Air medical transport was requested to reduce the adi-qc-pdkltigq time, 17 minutes by air vs. approximately [...] SURGICAL HISTORY OF 12/28/2021 AAA repair - "Stable status post graft repair of abdominal aortic aneurysm." PAST SURGICAL HISTORY OF 2024 Hernia repair [...] 5 mg by mouth once daily.Disp: Rfl: paflrtswsow-elqqafmlr-lgrljbpj (TRELEGY ELLIPTA) 200-62.5-25 mcg inhalation powderInhale 1 [...] of Breath.Disp: 1 Inh (more content not included)...[facility]25 Consult note Author Raymond Anthony [facility] Note Date/Time November 07, 2024 11 :10pm [facility] Medical Records Department [address] [place] [address] Anesthesia Postop Eval II 11/07/243 MR#: [id number] Acct: [id number] Name: ABELARDO IVORY Rep #:[id number] : 1950 74 From: Raymond Spann PCP: Dr. Padmini Carrasco MD Status :REG SDC Y Race: C Location: ICU ICU03 -1 Anesthesia Postop Eval I Sum Postop Eval [...] No anesthetic complications Complications Anesthesia Complication: No 11/07/247 <Electronically signed by Raymond Anthony MD> Date _ Raymond Anthony MD Cosigner Signature: Date CC: ~ Signed [facility] Work Phone: 1(626) 773-378610-02-2025 Discharge summary Author Con CouchSilvestre [facility] Note Date/Time November 07, 2024 11 :10pm [facility] Medical Records Department [address] [place] [address] Emergency Department Summary 11/07/24 MR#: [id number] Acct: [id number] Name: ABELARDO IVORY Rep #:[id number] : 1950 74 From: Con Dominguez ggett DO PCP: Dr. Padmini Carrasco MD Status :REG [facility] Location: ICU ICU03-1 HPI History of Present [...] intact Psych: Cooperative, appropriate mood and affect [facility] Medical History Bladder cancer Wears dentures Wears glasses Bruising Easy bruising High cholesterol Smoker Shortness of breath on exertion History of echocardiogram Cardiology follow-up encounter Stage 3b chronic kidney disease (CKD) Thrombocytopenia Chronic kidney insufficiency Pleural effusion Secondary pulmonary arterial hypertension Atherosclerotic heart disease of [place] coronary artery without angina pectoris Intention tremor [...] Arthritis Diabetes Brother Cancer Unsure what kind- "just a lump on his neck" Surgical History Neoplasm of bladder Hx of [...] 76.0 H Lymph % (Auto) 11.8 L Hawkins % (Auto) 9.8 Eos % (Auto) 1.1 [...] Clarity Cloudy Urine pH 6.0 Ur Specific Ashton 1.015 Urine Protein 100 H Urine Glucose [...] (Auto) Neut % (Auto) Lymph % (Auto) Hawkins % (Auto) Eos % (Auto) Baso % [...] Color Urine Clarity Urine pH Ur Specific [place] Urine Protein Urine Glucose (UA) Urine Ketones [...] 80.9 H Lymph % (Auto) 9.2 L Hawkins % (Auto) 8.1 Eos % (Auto) 0.4 [...] Color Urine Clarity Urine pH Ur Specific [place] Urine Protein Urine Glucose (UA) Urine Ketones [...] with eccentric noncalcified plaque/mural thrombus. Reading Location: [facility] Chest X-Ray 11/07/24 18:53 IMPRESSION: No focal consolidation. Extensive pulmonary emphysema. Reading Location: [facility] Discharge Plan Disposition Disposition: Acute Care Hospital [facility] Discharge Date/Time: 11/07/24 20:14 What to do if you have Problems For any increased pain, shortness of breath, bleeding, nausea or vomiting, chestpain, or any unexpected problems, contact your Primary Care Provider. Call [facility] ([phone]) or report to the closest Emergency Room. Call 911 if necessary. 11/07/24 8281 <Electronically signed by Con Pena DO> Cosigner Signature (if applicable): CC: Dr. Padmini Carrasco MD ~ Signed [facility] Work Phone: 1(985) 569-144010-02-2025 Discharge summary Author Suzanne Medley [facility] Note Date/Time November 07, 2024 11 :10pm [facility] Medical Records Department [address] [place] [address] Discharge Summary 11/07/24 2308 MR#: [id number] Acct: [id number] Name: ABELARDO IVORY Rep #:[id number] : 1950 74 From: Suzanne Medley MD PCP: Dr. Padmini Carrasco MD Status :[facility] Location: ICU ICU03-1 Providers Date of Admission: 11/07/24 Date of Discharge: 11/07/24 Primary Care Physician: Dr. Padmini Carrasco MD Consultations 11/07/24 21:49 Consult: Gastroenterology Routine Consulting Provider: [facility] Reason for Consult: ABLA, GI bleed, hemorrhagic shock. EMERGENT Consult: Yes MD Notified: Yes Date Notified: 11/07/24 Time Notified: 20:17 Method of Notification: ED Physician Initiated Consult: [employer] / Pulmonary Medicine Routine Consulting Provider: Intensivists/Pulmonary [...] on chemotherapy and possibly [facility], Vavular heart disease status post AVR, CAD status post CABG x 1, CKD stage III unclear subtype per GFR trending, HTN, HLD, Tobacco use, AAA s/p rupture s/p repair who presented to the [facility] ED on 11/07/2024 with significant bright red [...] 62 improving following PRBC with most recent [id number], heart rate 78, BP 03/02/1972, respiratory rate 16, 98% oxygenation, CBC with WC 10.8, hemoglobin initially 9.1 at 1555 with repeat at 1757 noted to be hemoglobin 7.8, platelet 229 with left shift, unremarkable coags, CMP with potassium 5.3 not noted to be hemolyzed, BUN/creatinine 47/2.09, GFR 33, [id number], lactic acid 2.2, hepatic profile not marked [...] was evaluated in the endoscopy suite at [facility] on 11/07/2024 and at the time of [...] and higher level of care with onsite mds manager team should patient decompensate again. Given the need for ongoing medical care, in the interim in the best interest of the patient, will proceed with admission to [facility] ICU following endoscopy and care will be [...] endoscopy to the intensive care unit in [facility] was recontacted and accepted patient to their ICU. The mds manager given situation with profuse bleeding during endoscopy noted ongoing although vital signs had stabilized felt patient's safest best interest for immediate air flight to be set up by [facility]. Once airflight was set up and arrive patient was transitioned from [facility] intensive unit care to the [facility] Flight team. Weight / BMI Weight [...] (Auto) 76.0 H, Lymph % (Auto)11.8 L, Hawkins % (Auto) 9.8, Eos % (Auto) 1.1, [...] Clarity Cloudy, Urine pH 6.0, Ur Specific Ashton 1.015, Urine Protein 100 H, Urine Glucose [...] (Auto) 80.9 H, Lymph % (Auto)9.2 L, Hawkins % (Auto) 8.1, Eos % (Auto) 0.4, [...] with eccentric noncalcified plaque/mural thrombus. Reading Location: [facility] Chest X-Ray 11/07/24 18:53 IMPRESSION: No focal consolidation. Extensive pulmonary emphysema. Reading Location: [facility] D/C Instructions DC O2, CPAP, BIPAP Needs [...] Floyd; [place]; Oxana Camar[place]; Minda Foreman; Chung Armstrong; Ritchie Juarez; Noe Suarez; Bernardo Zuñiga; Jatinder Mobley; Howie Araujo; Say Abraham; Namrata Little; Prakash Carr; Bubba Garcia; Jeffery House; Olya Meneses; Geetha Moran; Alexandrea Yap; Indira,Chris; Alec Delacruz; Khurram,Anderi; Juan M Beltran; Ricardo Juarez; Dian Gilbert; Liam Busch; Bowen Barrett; Dianelys Simon; Mckinley Griffin Instructions Print Language: Malian Discharge Orders/Prescriptions Prescriptions: No Action amlodipine 5 [...] date L3 (Discharged via air flight to [facility] to their ICU, admitted same day to stabilize until tertiary acceptance.) 11/07/24 1405 <Electronically signed by Suzanne Medley MD> Cosigner Signature (if applicable): CC: Dr. Suzanne Medley MD; Dr. Padmini Carrasco MD~ Signed [facility] Work Phone: 1(167) 953-676110-02-2025 [facility]10-02-2025 Consult note Author Raymond Anthony [facility] Note Date/Time November 07, 2024 10 :02pm [facility] Medical Records Department [address] [place] [address] Anesthesia Postop Eval I 11/07/24 2200 MR#: [id number] Acct: [id number] Name: ABELARDO IVORY Rep #:[id number] : 1950 74 From: Raymond Spann PCP: Dr. Padmini Carrasco MD Status :REG [facility] Y Race: C Location: ICU ICU03 Anesthesia: Postop Eval I Current Vital Signs [...] MD Cosigner Signature: Date CC: ~ Signed [facility] Work Phone: 1(408) 427-608010-01-2025 History and physical note Author Suzanne Medley [facility] Note Date/Time November 07, 2024 9: 47pm [facility] Medical Records Department [address] [place] [address] H&P Exam - Hospitalist 11/07/242012 MR#: [id number] Acct: [id number] Name: ABELARDO IVORY Rep #:[id number] : 1950 74 From: Suzanne Medley MD PCP: Dr. Padmini Carrasco MD Status :REG [facility] Location: ICU ICU03- HPI - General General Date of Admission: 11/07/24 Date of Service: 11/07/24 Chief Complaint: BRBPR, copious. HPI Narrative The patient is a 74 y/o M w/ PMHx: COPD, Bladder Cancer s/p transurethral resection on chemotherapy and [facility], Vavular heart disease status post AVR, CAD status post CABG x 1, CKD stage III unclear subtype per GFR trending, HTN, HLD, Tobacco use, AAA s/p rupture s/p repair who presents to the [facility] ED on 11/07/2024 with significant bright red [...] 62 improving following PRBC with most recent [id number], heart rate 78, BP 03/02/1972, respiratory rate 16, 98% oxygenation, CBC with WC 10.8, hemoglobin initially 9.1 at 1555 with repeat at 1757 noted to be hemoglobin 7.8, platelet 229 with left shift, unremarkable coags, CMP with potassium 5.3 not noted to be hemolyzed, BUN/creatinine 47/2.09, GFR 33, , lactic acid 2.2, hepatic profile not marked [...] was evaluated in the endoscopy suite at [facility] on 11/07/2024 and at the time of [...] necessary and higherlevel of care with onsite mds manager team should patient decompensate again. Given the need for ongoing medical care, in the interim in the best interest of the patient, will proceed with admission to [facility] ICU following endoscopy and care will be [...] did contact per discussion with Dr. Floyd [facility] as initial and they at this time are requesting that they be recontacted once the endoscopy is complete to know better where to place the patient. [facility] Medical History Bladder cancer Wears dentures Wears glasses Bruising Easy bruising High cholesterol Smoker Shortness of breath on exertion History of echocardiogram Cardiology follow-up encounter Stage 3b chronic kidney disease (CKD) Thrombocytopenia Chronic kidney insufficiency Pleural effusion Secondary pulmonary arterial hypertension Atherosclerotic heart disease of [place] coronary artery without angina pectoris Intention tremor [...] Arthritis Diabetes Brother Cancer Unsure what kind- "just a lump on his neck" Surgical History Neoplasm of bladder Hx of [...] (Auto) 76.0 H, Lymph % (Auto)11.8 L, Hawkins % (Auto) 9.8, Eos % (Auto) 1.1, [...] Clarity Cloudy, Urine pH 6.0, Ur Specific [place] 1.015, Urine Protein 100 H, Urine Glucose [...] with eccentric noncalcified plaque/mural thrombus. Reading Location: [facility] Chest X-Ray 11/07/24 18:53 IMPRESSION: No focal consolidation. Extensive pulmonary emphysema. Reading Location: [facility] Assessment & Plan Assessment/Plan (1) GI bleed: (2) Hemorrhagic shock: PLAN: Plan The patient is a 74 y/o M w/ PMHx: COPD, Bladder Cancer s/p transurethral resection on chemotherapy and possibly radiation [facility], Vavular heart disease status post AVR, CAD status post CABG x 1, CKD stage III unclear subtype per GFR trending, HTN, HLD, Tobacco use, AAA s/p rupture s/p repair who presents to the [facility] ED on 11/07/2024 with significant bright red [...] ongoing NPO status, continue GI consultation, request mds manager involvement while awaiting for tertiary facility [...] noted) per facility protocol if remains at [facility] as transfer is pending. #4. Hyperkalemia, mild: Admission potassium 5.3, not markedly elevated, will continue hydration, repeat CMP in AM if remains at [facility] astransfer is pending. #5. Bladder cancer: Patient with transurethral bladder resection 06/27/[address] Winston, following with [facility] oncology on chemotherapy and radiation with last [...] fluid suggesting of aneurysm leak transferred to [facility] undergoing thoracoretroperitoneal for ruptured juxtarenal abdominal aortic [...] 1 with SVG to RCA 02/12/2019 at [facility], additionally at the same time had AVR, [...] 16 minutes. Charges/Coding Visit Charges Inpatient E&M: 16662 Init Hosp L3 Procedures Hospitalists Procedures: 70125 Advncd Care Plan 30 Min 11/07/242052 <Electronically [...] ulceration was found in the duodenum. Contacting [facility] now to initiate transfer. 11/07/242146<Electronically signed by Suzanne Medley MD> Cosigner Signature (if applicable): cc: Dr. Suzanne Medley MD; Dr. Padmini Carracso MD ~* Signed [facility] Work Phone: 1(813) 208-632810-01-2025 Consult note [facility] Medical Records Department [address] [place] [address] Anesthesia Postop Eval II 11/07/242202 MR#: [id number] Acct: [id number] Name: ABELARDO IVORY Rep #:[id number] : 1950 74 From: Raymond Spann PCP: Dr. Padmini Carrasco MD Status :REG [facility] Y Race: C Location: ICU ICU03 -1 Anesthesia Postop Eval I Sum Postop Eval [...] 2203 > Date _ Raymond Anthony MD Cosignsary Signature: Date CC: ~ Signed [facility]10-01-2025 Discharge summary [facility] Medical Records Department [address] [place] [address] Emergency Department Summary 11/07/24 MR#: [id number] Acct: [id number] Name: ABELARDO IVORY Rep #:[id number] : 1950 74 From: Con fregoso DO PCP: Dr. Padmini Carrasco MD Status :REG [facility] Location: ICU ICU03-1 HPI History of Present [...] intact Psych: Cooperative, appropriate mood and affect [facility] Medical History Bladder cancer Wears dentures Wears glasses Bruising Easy bruising High cholesterol Smoker Shortness of breath on exertion History of echocardiogram Cardiology follow-up encounter Stage 3b chronic kidney disease (CKD) Thrombocytopenia Chronic kidney insufficiency Pleural effusion Secondary pulmonary arterial hypertension Atherosclerotic heart disease of [place] coronary artery without angina pectoris Intention tremor [...] Arthritis Diabetes Brother Cancer Unsure what kind- "just a lump on his neck" Surgical History Neoplasm of bladder Hx of [...] 76.0 H Lymph % (Auto) 11.8 L Hawkins % (Auto) 9.8 Eos % (Auto) 1.1 [...] Clarity Cloudy Urine pH 6.0 Ur Specific [place] 1.015 Urine Protein 100 H Urine Glucose [...] (Auto) Neut % (Auto) Lymph % (Auto) Hawkins % (Auto) Eos % (Auto) Baso % [...] Color Urine Clarity Urine pH Ur Specific [place] Urine Protein Urine Glucose (UA) Urine Ketones [...] 80.9 H Lymph % (Auto) 9.2 L Hawkins % (Auto) 8.1 Eos % (Auto) 0.4 [...] Color Urine Clarity Urine pH Ur Specific [place] Urine Protein Urine Glucose (UA) Urine Ketones [...] with eccentric noncalcified plaque/mural thrombus. Reading Location: [facility] Chest X-Ray 11/07/24 18:53 IMPRESSION: No focal consolidation. Extensive pulmonary emphysema. Reading Location: [facility] Discharge Plan Disposition Disposition: Acute Care Hospital [facility] Discharge Date/Time: 11/07/24 20:14 What to do if you have Problems For any increased pain, shortness of breath, bleeding, nausea or vomiting, chestpain, or any unexpected problems, contact your Primary Care Provider. Call [facility] ([phone]) or report tothe closest Emergency Room. Call 911 if necessary. 11/07/242 Cosigner Signature (if applicable): CC: Dr. Padmini Carrasco MD ~ Signed [facility]10-01-2025 Discharge summary [facility] Medical Records Department [address] [place] [address] Discharge Summary 11/07/24 2308 MR#: [id number] Acct: [id number] Name: ABELARDO IVORY Rep #:[id number] : 1950 74 From: Suzanne Medley MD PCP: Dr. Padmini Carrasco MD Status :[facility] Location: ICU ICU03-1 Providers Date of Admission: 11/07/24 Date of Discharge: 11/07/24 Primary Care Physician: Dr. Padmini Carrasco MD Consultations 11/07/24 21:49 Consult: Gastroenterology Routine Consulting Provider: [facility] Reason for Consult: ABLA, GI bleed, hemorrhagic shock. EMERGENT Consult: Yes MD Notified: Yes Date Notified: 11/07/24 Time Notified: 20:17 Method of Notification: ED Physician Initiated Consult: [employer] / Pulmonary Medicine Routine Consulting Provider: Intensivists/Pulmonary [...] resection on chemotherapyand possibly radiation [facility], Vavular heart disease status post AVR, CAD status post CABG x 1, CKD stage III unclear subtype per GFR trending, HTN, HLD, Tobacco use,AAA s/p rupture s/p repair who presented to the [facility] ED on 11/07/2024 with significant bright red [...] 62 improving following PRBC with most recent [id number], heart rate 78, BP 03/02/1972, respiratory rate 16, 98% oxygenation, CBC with WC 10.8, hemoglobin initially 9.1 at 1555 with repeat at 1757 noted to be hemoglobin 7.8, platelet 229 with left shift, unremarkable coags, CMP with potassium 5.3 not noted to be hemolyzed, BUN/creatinine 47/2.09, GFR 33, , lactic acid 2.2, hepatic profile not marked [...] was evaluated in the endoscopy suite at [facility] on 11/07/2024 and at the time of [...] and higher level of care with onsite mds manager team should patient decompensate again. Given the need for ongoing medical care, in the interim in the best interest of the patient, will proceed with admission to [facility] ICU following endoscopy and care will be [...] endoscopy to the intensive care unit in [facility] was recontacted and accepted patient to their ICU. The mds manager given situation with profuse bleeding during endoscopy noted ongoing although vital signs had stabilized felt patient'ssafest best interest for immediate air flight to be set up by [facility]. Once airflight was setup and arrive patient was transitioned from [facility] intensive unit care to the [facility] Flight team. Weight / BMI Weight [...] (Auto) 76.0 H, Lymph % (Auto)11.8 L, Hawkins % (Auto) 9.8, Eos % (Auto) 1.1, [...] Clarity Cloudy, Urine pH 6.0, Ur Specific [place] 1.015, Urine Protein 100 H, Urine Glucose [...] (Auto) 80.9 H, Lymph % (Auto)9.2 L, Hawkins % (Auto) 8.1, Eos % (Auto) 0.4, [...] with eccentric noncalcified plaque/mural thrombus. Reading Location: [id number] Chest X-Ray 11/07/24 18:53 IMPRESSION: No focal consolidation. Extensive pulmonary emphysema. Reading Location: [id number] D/C Instructions DC O2, CPAP, BIPAP Needs [...] Floyd; [place]; Oxana Camarillo; Minda Foreman; Chung Armstrong; Ritchie Juarez; Noe Suarez; Bernardo Zuñiga; Jatinder Mobley; Howie Araujo; Say Abraham; Namrata Little; Prakash Carr; Bubba Garcia; Jeffery House; Olya Meneses; Geetha Moran; Alexandrea Yap; Indira,Chris; Alec Delacruz; Andrei Paulson; Juan M Beltran; Ricardo Juarez; Dian Gilbert; Liam Busch; Bowen Barrett; Dianelys Simon; Mckinley Griffin Instructions Print Language: Malian Discharge Orders/Prescriptions Prescriptions: No Action amlodipine 5 [...] date L3 (Discharged via air flight to [facility] to their ICU, admitted same day to stabilize until tertiary acceptance.) 11/07/24 3906 Cosigner Signature (if applicable): CC: Dr. Suzanne Medley MD; Dr. Padmini Carrasco MD~ Signed [facility]10-01-2025 Procedure note [facility] Medical Records Department [address] [place] [address] EGD Report MR#: [id number] Acct: [id number] Name: ABELARDO IVORY Rep #:[id number] : 1950 74 From: Kamlesh Floyd DO PCP: Dr. Padmini Carrasco MD Status :[facility] Patient Name: Abelardo Ivory Procedure Date: 11/07/2024 [...] present medications. Procedure Code(s): --- Professional --- 63523, Small intestinal endoscopy, enteroscopy beyond second portion of duodenum, not including ileum; with control of bleeding (eg, injection, bipolar cautery, unipolar cautery, laser, heater probe, stapler, plasma mix crusher operator) 78288, Unlisted procedure, small intestine CPT copyright 2021 [employer]. All rights reserved. The codes documented in this report are preliminary and upon dispensing optician review may be revised to meet current compliance requirements. Kamlesh Floyd DO 11/07/2024 9:36:15 PM This report has been signed electronically. Number of Addenda: 0 Note Initiated On: 11/07/2024 9:11 PM 11/07/242135 Date _ Kamlesh Garcia Signature: Date (if indicated) CC: Dr. Padmini Carrasco MD; Kamlesh Floyd DO ~ Date Dictated: 11/07/242110 Date Transcribed: Junior Engineer: RF Signed [facility]10-01-2025 Procedure note [facility] Medical Records Department [address] [place] [address] Provation Physician Letter MR#: [id number] Acct: [id number] Name: ABELARDO IVORY Rep #:[id number] : 1950 74 From: Kamlesh Floyd DO PCP: Dr. Padmini Carrasco MD Status :[facility] 11/07/2024 Ezekiel Carrasco [address] [place] [address] Re : Upper GI endoscopy procedure for [...] been signed electronically. 11/07/242135 Date _ Kamlesh Garcia Signature: Date (if indicated) CC: Dr. Suzanne Medley MD; Dr. Padmini Carrasco MD; Kamlesh Floyd DO ~ Date Dictated: 11/07/242110 Date Transcribed: Junior Engineer: RF Signed [facility]10-01-2025 Procedure note [facility] Medical Records Department [address] [place] [address] Colonoscopy Report MR#: [id number] Acct: [id number] Name: ABELARDO IVORY Rep #:[id number] : 1950 74 From: Kamlesh Floyd DO PCP: Dr. Padmini Carrasco MD Status :REG [facility] Patient Name: Abelardo Ivory Procedure Date: 11/07/2024 [...] digital rectal examinations were normal. Hematin (altered blood/cwrshw-xzogrw-nbqr material) was found in the entire colon. The distal ileum and terminal ileum contained hematin (altered blood/rvcxsb-dkryqh-silb material). Impression: - Blood in the entire examined colon. - Blood in the distal ileum and in the terminal ileum. - No specimens collected. Recommendation: - Return patient to ICU for ongoing care. - Resume previous diet. - Continue present medications. - No recommendation at this time regarding repeat colonoscopy. Procedure Code(s): --- Professional --- 30734, Colonoscopy, flexible; diagnostic, including collection of specimen(s) by brushing or washing, when performed (separate procedure) CPT copyright 2021 [employer]. All rights reserved. The codes documented in this report are preliminary and upon dispensing optician review may be revised to meet current compliance requirements. Kamlesh Floyd DO 11/07/2024 9:39:04 PM This report has been signed electronically. Number of Addenda: 0 Note Initiated On: 11/07/2024 7:39 PM 11/07/242138 Date _ Kamlesh Garcia Signature: Date (if indicated) CC: Dr. Padmini Carrasco MD; Kamlesh Floyd DO ~ Date Dictated: 10/01/25 1939 Date Transcribed: Junior Engineer: RF Signed [facility]10-01-2025 Procedure note [facility] Medical Records Department [address] [place] [address] Provation Physician Letter MR#: [id number] Acct: [id number] Name: ABELARDO IVORY Rep #:[id number] : 1950 74 From: Kamlesh Floyd DO PCP: Dr. Padmini Carrasco MD Status :REG [facility] 11/07/2024 Ezekiel Carrasco [address] [place] [address] Re : Colonoscopy procedure for Abelardo Ivory [...] free to contact me at . Sincerely, Kmalesh Floyd DO 11/07/2024 9:39:04 PM This report has been signed electronically. 11/07/242138 Date _ Kamlesh Garcia Signature: Date (if indicated) CC: Dr. Suzanne Medley MD; Dr. Padmini Carrasco MD; Kamlesh Floyd DO ~ Date Dictated: 11/07/241938 Date Transcribed: Junior Engineer: RF Signed [facility] Consult note Author Raymond Anthony [facility] Note Date/Time November 07, 2024 8: 14[facility] Medical Records Department [address] [place] [address] Pre-Anesthesia Evaluation 11/07/242002 MR#: [id number] Acct: [id number] Name: ABELARDO IVORY Rep #:[id number] : 1950 74 From: Raymond Spann PCP: Dr. Padmini Carrasco MD Status :REG [facility] Y Race: C Location: [place] [address] ASA Classification* ASA Classification ASA Classification: 4 [...] Procedure(s): Colonoscopy Anesthesia History Anesthesia History - interlocking installer: Anesthesia History - interlocking installer Hx Hospitalization No 06/15/24 08:41 Any Problems [...] take am of surgery PONV PONV - interlocking installer: PONV - interlocking installer Female HX of Motion Sickness HX of N/V After Surgery Non-Smoker Duration of Surgery greater than 60 minutes Number of Risk Factors PONV Score Height & Weight Height & Weight: Anesthesia: Height & Weight Height 5 ft 6 in 11/07/24 15:32 Weight: 64.4 kg 11/07/24 18:05 Body Mass Index (BMI) 22.8 11/07/24 18:05 Respiratory Assessment Respiratory Assessment - interlocking installer: Respiratory Tract Infection Hx - interlocking installer Hx Respiratory Tract Infection No 06/15/24 08:41 STOP Sleep Apnea STOP Sleep Apnea - interlocking installer: STOP Sleep Apnea - interlocking installer Hx Hypertension Yes: CONTROLLED ON MED 06/15/24 [...] Tobacco Use History Tobacco Use History - interlocking installer: Tobacco Use History - interlocking installer Tobacco Use Smoking Status Current every day smoker 11/07/24 17:35 Hx Tobacco Use Yes 06/27/24 15:48 Years Smoking Packs Smoked per Day Smoking Cessation Date was within the last 15 years Hx Smoking Cessation Date Hx Smoking Cessation Counseling Hematologic Medial History Hematologic Hx - interlocking installer: Hematologic Medical Hx - conflicts analyst Hx of Blood Transfusion Hx of Transfusion in last 3 Months Date of Last Transfusion (if within last 3 months) Ever experience any problems with transfusion(s)? Specify any problems Hx of Preganancy in last 3 Months Nurse Filling Out Transfusion & Questions: Date: Time: Patient unable to answer at this time (ie. confused, unrespo /Reproduction History /Reproductive History - interlocking installer: /Reproductive Hx- interlocking installer Hx Now Gestational Age (in weeks): EDC: Hx Hx Para Hx Section SAB PFSH Medical History Bladder cancer Wears dentures Wears glasses Bruising Easy bruising High cholesterol Smoker Shortness of breath on exertion History of echocardiogram Cardiology follow-up encounter Stage 3b chronic kidney disease (CKD) Thrombocytopenia Chronic kidney insufficiency Pleural effusion Secondary pulmonary arterial hypertension Atherosclerotic heart disease of [place] coronary artery without angina pectoris Intention tremor [...] Arthritis Diabetes Brother Cancer Unsure what kind- "just a lump on his neck" Surgical History Neoplasm of bladder Hx of [...] MD Cosigner Signature: Date CC: ~ Signed [facility] Work Phone: 1(918) 106-483510-01-2025 History and physical note Author Suzanne Medley [facility] Note Date/Time November 07, 2024 9: 47pm [facility] Medical Records Department [address] [place] [address] H&P Exam - Hospitalist 11/07/242012 MR#: [id number] Acct: [id number] Name: ABELARDO IVORY Rep #:[id number] 22 : 1950 74 From: Suzanne Medley MD PCP: Dr. Padmini Carrasco MD Status :[facility] Location: ICU ICU-1 HPI - General General Date of Admission: 11/07/24 Date of Service: 11/07/24 Chief Complaint: BRBPR, copious. HPI Narrative The patient is a 74 y/o M w/ PMHx: COPD, Bladder Cancer s/p transurethral resection on chemotherapy and possibly radiation [facility], Vavular heart disease status post AVR, CAD status post CABG x 1, CKD stage III unclear subtype per GFR trending, HTN, HLD, Tobacco use, AAA s/p rupture s/p repair who presents to the [facility] ED on 11/07/2024 with significant bright red [...] 62 improving following PRBC with most recent [id number], heart rate 78, BP 03/02/1972, respiratory rate 16, 98% oxygenation, CBC with WC 10.8, hemoglobin initially 9.1 at 1555 with repeat at 1757 noted to be hemoglobin 7.8, platelet 229 with left shift, unremarkable coags, CMP with potassium 5.3 not noted to be hemolyzed, BUN/creatinine 47/2.09, GFR 33, [id number], lactic acid 2.2, hepatic profile not marked [...] was evaluated in the endoscopy suite at [facility] on 11/07/2024 and at the time of [...] necessary and higherlevel of care with onsite mds manager team should patient decompensate again. Given the need for ongoing medical care, in the interim in the best interest of the patient, will proceed with admission to [facility] ICU following endoscopy and care will be [...] did contact per discussion with Dr. Floyd [facility] as initial and they at this time are requesting that they be recontacted once the endoscopy is complete to know better where to place the patient. [facility] Medical History Bladder cancer Wears dentures Wears glasses Bruising Easy bruising High cholesterol Smoker Shortness of breath on exertion History of echocardiogram Cardiology follow-up encounter Stage 3b chronic kidney disease (CKD) Thrombocytopenia Chronic kidney insufficiency Pleural effusion Secondary pulmonary arterial hypertension Atherosclerotic heart disease of [place] coronary artery without angina pectoris Intention tremor [...] Arthritis Diabetes Brother Cancer Unsure what kind- "just a lump on his neck" Surgical History Neoplasm of bladder Hx of [...] (Auto) 76.0 H, Lymph % (Auto)11.8 L, Hawkins % (Auto) 9.8, Eos % (Auto) 1.1, [...] Clarity Cloudy, Urine pH 6.0, Ur Specific [place] 1.015, Urine Protein 100 H, Urine Glucose [...] with eccentric noncalcified plaque/mural thrombus. Reading Location: [facility] Chest X-Ray 11/07/24 18:53 IMPRESSION: No focal consolidation. Extensive pulmonary emphysema. Reading Location: [facility] Assessment & Plan Assessment/Plan (1) GI bleed: (2) Hemorrhagic shock: PLAN: Plan The patient is a 74 y/o M w/ PMHx: COPD, Bladder Cancer s/p transurethral resection on chemotherapy and possibly radiation following [facility], Vavular heart disease status post AVR, CAD status post CABG x 1, CKD stage III unclear subtype per GFR trending, HTN, HLD, Tobacco use, AAA s/p rupture s/p repair who presents to the [facility] ED on 11/07/2024 with significant bright red [...] ongoing NPO status, continue GI consultation, request mds manager involvement while awaiting for tertiary facility [...] noted) per facility protocol if remains at [facility] as transfer is pending. #4. Hyperkalemia, mild: Admission potassium 5.3, not markedly elevated, will continue hydration, repeat CMP in AM if remains at [facility] astransfer is pending. #5. Bladder cancer: Patient with transurethral bladder resection 06/27/[address] Winston, following with [facility] oncology on chemotherapy and radiation with last [...] fluid suggesting of aneurysm leak transferred to [facility] undergoing thoracoretroperitoneal for ruptured juxtarenal abdominal aortic [...] 1 with SVG to RCA 02/12/2019 at [facility], additionally at the same time had AVR, [...] 16 minutes. Charges/Coding Visit Charges Inpatient E&M: 82105 Init Hosp L3 Procedures Hospitalists Procedures: 92406 Advncd Care Plan 30 Min 11/07/242052 <Electronically [...] ulceration was found in the duodenum. Contacting [facility] now to initiate transfer. 11/07/242146<Electronically signed by Suzanne Medley MD> Cosigner Signature (if applicable): cc: Dr. Suzanne Medley MD; Dr. Padmini Carrasco MD ~* Signed [facility] Work Phone: 1(349) 253-241910-01-2025 Consult note Author Kamlesh Friend [facility] Note Date/Time November 07, 2024 8: 08pm [facility] Medical Records Department [facility] [place] [address] [place] [address] Consultation - GI 11/07/242005 MR#: [id number] Acct: [id number] Name: ABELARDO IVORY Rep #:[id number] : 1950 74 From: Kamlesh Floyd DO PCP: Dr. Padmiin Carrasco MD Status :[facility] Location: [place] [address] HPI Consult Data Date of Consult: 11/07/24 [...] will be starting chemo treatments soon at [facility]. Patient has a history of aortic stenosis diagnosed in 2012. Patient underwent coronary angiography which revealed 80% stenosis in the RCA and patient was referred to [facility] for aortic valve and RCA revascularization. Patient underwent AVR plus CABG x 1 (Perimount #23, SVG to RCA at [facility] on 02/12/2019). Patient did well postoperatively with echocardiogram demonstrating preserved ejection fraction, normally functioning prosthetic aortic valve with peak gradient 25 mmHg and mean gradient of 13 mmHg. Patient was diagnosed with an abdominal aortic aneurysm and was sent to [place] for an opinion. It was noted to [...] of aneurysm leak. Patient was transferred to [facility] facility and on 12/28/2021 patient proceeded with [...] in his rectosigmoid colon in his duodenum. [facility] Medical History Bladder cancer Wears dentures Wears glasses Bruising Easy bruising High cholesterol Smoker Shortness of breath on exertion History of echocardiogram Cardiology follow-up encounter Stage 3b chronic kidney disease (CKD) Thrombocytopenia Chronic kidney insufficiency Pleural effusion Secondary pulmonary arterial hypertension Atherosclerotic heart disease of [place] coronary artery without angina pectoris Intention tremor [...] Arthritis Diabetes Brother Cancer Unsure what kind- "just a lump on his neck" Surgical History Neoplasm of bladder Hx of [...] (Auto) 76.0 H, Lymph % (Auto)11.8 L, Hawkins % (Auto) 9.8, Eos % (Auto) 1.1, [...] Clarity Cloudy, Urine pH 6.0, Ur Specific [place] 1.015, Urine Protein 100 H, Urine Glucose [...] with eccentric noncalcified plaque/mural thrombus. Reading Location: [facility] Chest X-Ray 11/07/24 18:53 IMPRESSION: No focal consolidation. Extensive pulmonary emphysema. Reading Location: [facility] Assessment & Plan Assessment/Plan (1) GI bleed: [...] of 3. Charges/Coding Visit Charges Inpatient E&M: 51038 Init Hosp L3 11/07/242007 <Electronically signed by Kamlesh Floyd DO> Cosigner Signature (if applicable): CC: Dr. Padmini Carrasco MD; Kamlesh Floyd DO~ Signed [facility] Work Phone: 1(509) 356-350610-01-2025 Consult note [facility] Medical Records Department [address] [place] [address] Anesthesia Postop Eval I 11/07/242199 MR#: [id number] Acct: [id number] Name: ABELARDO IVOYR Rep #:[id number] : 1950 74 From: Raymond Spann PCP: Dr. Padmini Carrasco MD Status :REG [facility] Y Race: C Location: ICU ICU03 - Anesthesia: Postop Eval I Current Vital Signs [...] completed: Yes 11/07/242201 > Date _ Raymond Adrianigner Signature: Date CC: ~ Signed [facility]10-01-2025 History and physical note [facility] Medical Records Department [address] [place] [address] H&P Exam - Hospitalist 11/07/242012 MR#: [id number] Acct: [id number] Name: ABELARDO IVORY Rep #:[id number] 22 : 1950 74 From: Suzanne Medley MD PCP: Dr. Padmini Carrasco MD Status :REG [facility] Location: ICU ICU03-1 HPI - General General Date of Admission: 11/07/24 Date of Service: 11/07/24 Chief Complaint: BRBPR, copious. HPI Narrative The patient is a 74 y/o M w/ PMHx: COPD, Bladder Cancer s/p transurethral resection on chemotherapyand possibly radiation [facility], Vavular heart disease status post AVR, CAD status post CABG x 1, CKD stage III unclear subtype per GFR trending, HTN, HLD, Tobacco use,AAA s/p rupture s/p repair who presents to the [facility] ED on 11/07/2024 with significant bright red [...] 62 improving following PRBC with most recent [id number], heart rate 78, BP 03/02/1972, respiratory rate 16, 98% oxygenation, CBC with WC 10.8, hemoglobin initially 9.1 at 1555 with repeat at 1757 noted to be hemoglobin 7.8, platelet 229 with leftshift, unremarkable coags, CMP with potassium 5.3 not noted to be hemolyzed, BUN/creatinine 47/2.09, GFR 33, [id number], lactic acid 2.2, hepatic profile not marked [...] was evaluated in the endoscopy suite at [facility] on 11/07/2024 and at the time of [...] and highe rlevel of care with onsite mds manager team should patient decompensate again. Given the need for ongoing medical care, in the interim in the best interest of the patient, will proceed with admissionto [facility] ICU following endoscopy and care will be provided here until [facility] has an available staffed bed. Pt and/or [...] did contact per discussion with Dr. Floyd [facility] as initial and they at this time are requesting that they be recontacted once the endoscopy is complete to know better where to place the patient. [facility] Medical History Bladder cancer Wears dentures Wears glasses Bruising Easy bruising High cholesterol Smoker Shortness of breath on exertion History of echocardiogram Cardiology follow-up encounter Stage 3b chronic kidney disease (CKD) Thrombocytopenia Chronic kidney insufficiency Pleural effusion Secondary pulmonary arterial hypertension Atherosclerotic heart disease of [place] coronary artery without angina pectoris Intention tremor [...] Arthritis Diabetes Brother Cancer Unsure what kind- "just a lump on his neck" Surgical History Neoplasm of bladder Hx of [...] (Auto) 76.0 H, Lymph % (Auto)11.8 L, Hawkins % (Auto) 9.8, Eos % (Auto) 1.1, [...] Clarity Cloudy, Urine pH 6.0, Ur Specific [place] 1.015, Urine Protein 100 H, Urine Glucose [...] with eccentric noncalcified plaque/mural thrombus. Reading Location: [id number] Chest X-Ray 11/07/24 18:53 IMPRESSION: No focal consolidation. Extensive pulmonary emphysema. Reading Location: [facility] Assessment & Plan Assessment/Plan (1) GI bleed: (2) Hemorrhagic shock: PLAN: Plan The patient is a 74 y/o M w/ PMHx: COPD, Bladder Cancer s/p transurethral resection [facility]and [facility], Vavular heart disease status post AVR, CAD status post CABG x 1, CKD stage III unclear subtype per GFR trending, HTN, HLD, Tobacco use,AAA s/p rupture s/p repair who presents to the [facility] ED on 11/07/2024 with significant bright red [...] ongoing NPO status, continue GI consultation, request mds manager involvement while awaiting for tertiary facility [...] asnoted) per facility protocol if remains at [facility] as transfer is pending. #4. Hyperkalemia, mild: Admission potassium 5.3, not markedly elevated, will continue hydration, repeat CMP in AM if remains at [facility] astransfer is pending. #5. Bladder cancer: Patient with transurethral bladder resection 06/27/[address] Winston, following with [facility] oncology on chemotherapy and radiation with last [...] fluid suggesting of aneurysm leak transferred to [facility] undergoing thoracoretroperitoneal for ruptured juxtarenal abdominal aortic [...] 1 with SVG to RCA 02/12/2019 at [facility], additionally at the same time had AVR, [...] 16 minutes. Charges/Coding Visit Charges Inpatient E&M: 21781 Init Hosp L3 Procedures Hospitalists Procedures: 85587 Advncd Care Plan 30 Min 11/07/242052 Cosigner [...] ulceration was found in the duodenum. Contacting [facility] now to initiate transfer. 11/07/242146 Cosigner Signature (if applicable): cc: Dr. Suzanne Medley MD; Dr. Padmini Carrasco MD ~* Signed [facility]10-01-2025 Consult note [facility] Medical Records Department [address] [place] [address] Pre-Anesthesia Evaluation 11/07/242002 MR#: [id number] Acct: [id number] Name: ABELARDO IVORY Rep #:[id number] 17 : 1950 74 From: Raymond Spann PCP: Dr. Padmini Carrasco MD Status :REG [facility] Y Race: C Location: [facility]06-1 ASA Classification* ASA Classification ASA Classification: 4 [...] Procedure(s): Colonoscopy Anesthesia History Anesthesia History - interlocking installer: Anesthesia History - interlocking installer Hx Hospitalization No 06/15/24 08:41 Any Problems [...] take am of surgery PONV PONV - interlocking installer: PONV - interlocking installer Female HX of Motion Sickness HX of N/V After Surgery Non-Smoker Duration of Surgery greater than 60 minutes Number of Risk Factors PONV Score Height & Weight Height & Weight: Anesthesia: Height & Weight Height 5 ft 6 in 11/07/24 15:32 Weight: 64.4 kg 11/07/24 18:05 Body Mass Index (BMI) 22.8 11/07/24 18:05 Respiratory Assessment Respiratory Assessment - interlocking installer: Respiratory Tract Infection Hx - interlocking installer Hx Respiratory Tract Infection No 06/15/24 08:41 STOP Sleep Apnea STOP Sleep Apnea - interlocking installer: STOP Sleep Apnea - interlocking installer Hx Hypertension Yes: CONTROLLED ON MED 06/15/24 [...] Tobacco Use History Tobacco Use History - interlocking installer: Tobacco Use History - interlocking installer Tobacco Use Smoking Status Current every day smoker 11/07/24 17:35 Hx Tobacco Use Yes 06/27/24 15:48 Years Smoking Packs Smoked per Day Smoking Cessation Date was within the last 15 years Hx Smoking Cessation Date Hx Smoking Cessation Counseling Hematologic Medial History Hematologic Hx - interlocking installer: Hematologic Medical Hx - conflicts analyst Hx of Blood Transfusion Hx of Transfusion in last 3 Months Date of Last Transfusion (if within last 3 months) Ever experience any problems with transfusion(s)? Specify any problems Hx of Preganancy in last 3 Months Nurse Filling Out Transfusion & Questions: Date: Time: Patient unable to answer at this time (ie. confused, unrespo /Reproduction History /Reproductive History - interlocking installer: /Reproductive Hx- interlocking installer Hx Now Gestational Age (in weeks): EDC: Hx Hx Para Hx Section SAB PFSH Medical History Bladder cancer Wears dentures Wears glasses Bruising Easy bruising High cholesterol Smoker Shortness of breath on exertion History of echocardiogram Cardiology follow-up encounter Stage 3b chronic kidney disease (CKD) Thrombocytopenia Chronic kidney insufficiency Pleural effusion Secondary pulmonary arterial hypertension Atherosclerotic heart disease of [place] coronary artery without angina pectoris Intention tremor [...] mg tablet (Crestor) 5 mg PO DAILY uzam sterol 03/02/22 03/02/22 History amlodipine 5 mg [...] Arthritis Diabetes Brother Cancer Unsure what kind- "just a lump on his neck" Surgical History Neoplasm of bladder Hx of [...] oriented x3 and moves all extremities 11/07/242013 > Date _ Raymond Anthony MD Cosigner Signature: Date CC: ~ Signed [facility]10-01-2025 Consult note [facility] Medical Records Department [address] [place] [address] Consultation - GI 11/07/242005 MR#: [id number] Acct: [id number] Name: ABELARDO IVORY Rep #:[id number] : 1950 74 From: Kamlesh Floyd DO PCP: Dr. Padmini Carrasco MD Status :[facility] Location: [place] [address] HPI Consult Data Date of Consult: 11/07/24 [...] he [facility] [place]. Patient has a history of aortic stenosis diagnosed in 2012. Patient underwent coronary angiography which revealed 80% stenosis in the RCA and patient was referred to [facility] for aortic valve and RCA revascularization. Patient underwent AVR plus CABG x 1 (Perimount #23, SVG to RCA at [facility] on 02/12/2019). Patient did well postoperatively with echocardiogram demonstrating preserved ejection fraction, normally functioning prosthetic aortic valve with peak gradient 25 mmHg and mean gradient of 13 mmHg. Patient was diagnosed with an abdominal aortic aneurysm and was sent to [place] for an opinion. It was noted to [...] of aneurysm leak. Patient was transferred to [facility] facility and on 12/28/2021 patientproceeded with thoracoretroperitoneal [...] in his rectosigmoid colon in his duodenum. [facility] Medical History Bladder cancer Wears dentures Wears glasses Bruising Easy bruising High cholesterol Smoker Shortness of breath on exertion History of echocardiogram Cardiology follow-up encounter Stage 3b chronic kidney disease (CKD) Thrombocytopenia Chronic kidney insufficiency Pleural effusion Secondary pulmonary arterial hypertension Atherosclerotic heart disease of [place] coronary artery without angina pectoris Intention tremor [...] Arthritis Diabetes Brother Cancer Unsure what kind- "just a lump on his neck" Surgical History Neoplasm of bladder Hx of [...] (Auto) 76.0 H, Lymph % (Auto)11.8 L, [place] % (Auto) 9.8, Eos % (Auto) 1.1, [...] Clarity Cloudy, Urine pH 6.0, Ur Specific [place] 1.015, Urine Protein 100 H, Urine Glucose [...] with eccentric noncalcified plaque/mural thrombus. Reading Location: [facility] Chest X-Ray 11/07/24 18:53 IMPRESSION: No focal consolidation. Extensive pulmonary emphysema. Reading Location: [facility] Assessment & Plan Assessment/Plan (1) GI bleed: [...] of 3. Charges/Coding Visit Charges Inpatient E&M: 20144 Init Hosp L3 11/07/242007 Cosigner Signature (if applicable): CC: Dr. Padmini Carrasco MD; Kamlesh Floyd DO~ Signed [facility]10-01-2025 Radiology Diagnostic study note [facility] Imaging Services [address] [place] [address] Chest 1 View (Portable) MR#: [id number] Acct: [id number] Name: ABELARDO IVORY Rep #: [id number] : 1950 M 74 From: Reema Hurtado MD PCP: Dr. Padmini Carrasco MD Status: [facility] Study:Chest 1 View (Portable) Date of Exam: 11/07/24 Exam# [id number] Ordering Dr: Con Curran DO PROCEDURE: CHEST [...] focal consolidation. Extensive pulmonary emphysema. Reading Location: [facility] CC: Dr. Con Pena DO; Dr. Padmini Carrasco MD ~ Junior Engineer: Signed [facility]10-01-2025 Radiology Diagnostic study note [facility] Imaging Services [address] [place] [address] CTA Abd/Pelvis W/WO Contrast MR#: [id number] Acct: [id number] Name: ABELARDO IVORY Rep #: [id number] : 1950 M 74 From: Pio Schofield MD PCP: Dr. Padmini Carrasco MD Status: [facility] Study:CTA Abd/Pelvis W/WO Contrast Date of Ex am: 11/07/24 Exam# [id number] Ordering Dr: Con Curran DO PROCEDURE: CTA [...] with eccentric noncalcified plaque/mural thrombus. Reading Location: [id number] CC: Dr. Con Pena DO; Dr. Padmini Carrasco MD ~ Junior Engineer: Signed [facility]10-01-2025 Hospital Discharge instructionsAdditional Instructions Date of Discharge: 11/07/24[facility] Work Phone: 1(792) 438-850609-15-2025 NoteHNO ID: [id number] Author: UNRULY DIAZ RN Service: ? Author [...] ONCOLOGY Time spent on patient education: 05 minutes.[facility] History of Present illness Narrative* Unruly [...] patient education: 05 minutes. documented [facility] NoteEducation (JONATHANWS) ABELARDO IVORY ([id number]) 1950 M Date Time Provider Department 10/22/24 [...] 5 mg by mouth once daily. - urossoftgpy-jqjalqirl-osfhgdmp (TRELEGY ELLIPTA) 200-62.5-25 mcg inhalation powder Inhale [...] hours. Encounter Status:Closed by UNRULY DIAZ on 10/22/24[facility] 10-22-2024 NoteHNO ID: [id number] Author: LUIGI BANKS MD Service: Radiation Oncology Author Type: Physician Type: Progress Notes Filed: 10/30/2024 10:25 Note Text: ABELARDO IVORY [id number] 10/22/2024 [facility] Department of Radiation Oncology [facility] RADIATION ONCOLOGY: COMPLETION NOTE DATE OF SIMULATION: 09/07/2024 DATES OF TREATMENT: 09/24/2024 to 10/22/2024 UNIT: W_TRUEBEAM AREA TREATED: Bladder/prostate DISEASE: Clinical stage II, [...] 0:25 AM Electronically Signed cc: Padmini Carrasco ([facility]) [address] [place] [place] [address] Lakeisha Dawkins [address] [facility] [address] History of Present illness Narrative* Nighat Hines RN - 10/16/2024 10:15 AM EDT Radiation Therapy - Nursing Note (OTV) PATIENT NAME: Abelardo Ivory PATIENT October 16, 2024 [facility] FACILITY/LOCATION: [place] NURSING NOTE TYPE: PROSTATE - MALE PELVIS Subjective Data No concerns voiced Additional Data Do you want to see a Diesel Locomotive Firer? No Status: Patient is male Stress Scale: On a scale of 0 to 10, what number best describes how much distress you have experienced in the past week?(0 being no distress and 10 being extreme distress) 1 Social work notified: Pt denied need to see nephrology social worker at this time. Nursing Assessment [...] Bladder function: no problems. Urinary frequency (D/N): r00kfjg/2-3. SIGNED by: Nighat Hines RN * Luigi [...] planned. Luigi Banks MD documented in this encounter[facility] [place]25 NoteHNO ID: [id number] Author: NIGHAT HINES RN Service: ? Author Type: Registered Nurse Type: Progress Notes Filed: 10/16/2024 10:15 Note Text: Radiation Therapy - Nursing Note (OTV) PATIENT NAME: Abelardo Ivory PATIENT October 16, 2024 [facility] FACILITY/LOCATION: [place] NURSING NOTE TYPE: PROSTATE - MALE PELVIS Subjective Data No concerns voiced Additional Data Do you want to see a Diesel Locomotive Firer? No Status: Patient is male Stress Scale: On a scale of 0 to 10, what number best describes how much distress you have experienced in the past week?(0 being no distress and 10 being extreme distress) 1 Social work notified: Pt denied need to see nephrology social worker at this time. Nursing Assessment [...] Bladder function: no problems. Urinary frequency (D/N): l87fdon/2-3. SIGNED by: Nighat Hines [facility]25 NoteHNO ID: [id number] Author: LUIGI BANKS MD Service: ? Author [...] parameters. Continue radiation treatment as planned. Luigi Darren [facility]09-05-2025 History of Present illness Narrative* Bob Otero - 10/12/2024 11:30 AM EDT Abelardo Ivory 1950 10/12/2024 Patient self-referred for muscle invasive bladder cancer. HPI: The patient is a 74-year-old male with a past medical history as outlined below. Developed gross hematuria and noticed debris in urine. Saw Dr. Winston. Had TURBT with "chemo flush." Path below. Referred to [facility] b/c patient declined cystectomy. Per Dr. Christianson's note dated 07/26/2024, "June 2024, began experiencing flank pain, and hematuria, [...] the past 1-1.5 ppd since age 15 years" Pathology from [facility] reviewed at [facility]: A. Urinary bladder, transurethral resection: [...] cough. Clear sputum. Sees Dr. Zuñiga at [facility]. Smokes about 1/2 ppd. No alcohol. Interval [...] SURGICAL HISTORY OF 12/28/2021 AAA repair - "Stable status post graft repair of abdominal aortic aneurysm." PAST SURGICAL HISTORY OF 2024 Hernia repair [...] Take 5 mg by mouth once daily. eckibsnpnhd-stgntpoct-nhdvjids (TRELEGY ELLIPTA) 200-62.5-25 mcg inhalation powder Inhale [...] use: No Drug use: No Worked for [employer]. [employer]. FAMILY HISTORY Problem Relation Age of Onset [...] with any questions or concerns. Bob Otero APRN.TIN STACKER I spent a total of 30 minutes on the date of the service which included preparing to see the patient, rzkh-ok-onlh patient care, completing clinical documentation, obtaining and/or [...] evaluation of this patient. documented in this encounterSelect [facility] [place]-2025 NoteHNO ID: [id number] Author: BOB OTERO, ? Service: ? Author Type: Nurse Practitioner Type: Progress Notes Filed: 10/12/2024 12:41 Note Text: Abelardo Ivory 1950 10/12/2024 Patient self-referred for muscle invasive bladder cancer. HPI: The patient is a 74-year-old male with a past medical history as outlined below. Developed gross hematuria and noticed debris in urine. Saw Dr. Winston. Had TURBT with "chemo flush." Path below. Referred to [facility] b/c patient declined cystectomy. Per Dr. Christianson's note dated 07/26/2024, "June 2024, began experiencing flank pain, and hematuria, [...] the past 1-1.5 ppd since age 15 years" Pathology from [facility] reviewed at main campus: A. Urinary bladder, [...] cough. Clear sputum. Sees Dr. Zuñiga at [facility]. Smokes about 1/2 ppd. No alcohol. Interval [...] SURGICAL HISTORY OF 12/28/2021 AAA repair - "Stable status post graft repair of abdominal aortic aneurysm." PAST SURGICAL HISTORY OF 2024 Hernia repair [...] Take 5 mg by mouth once daily. 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 [facility] NoteHNO ID: [id number] Author: LUIGI BANKS MD Service: ? Author [...] Continue radiation treatment as planned. Luigi Banks [facility]09-02-2025 History of Present illness Narrative* Luigi Banks [...] NAME: Abelardo Ivory PATIENT October 09, 2024 [facility] FACILITY/LOCATION: [place] NURSING NOTE TYPE: PROSTATE - MALE PELVIS Subjective Data Pt states his pain is much in better, not taking pain meds much at this time Additional Data Do you want to see a Diesel Locomotive Firer? No Status: Patient is male Stress Scale: On a scale of 0 to 10, what number best describes how much distress you have experienced in the past week?(0 being no distress and 10 being extreme distress) 1 Social work notified: Pt denied need to see nephrology social worker at this time. Nursing Assessment [...] by: Shreya Souza RN documented in this encounterSelect [facility] [place]-02-2025 NoteHNO ID: [id number] Author: SHREYA SOUZA RN Service: ? Author Type: Registered Nurse Type: Progress Notes Filed: 10/09/2024 10:02 Note Text: Radiation Therapy - Nursing Note (OTV) PATIENT NAME: Abelardo Ivory PATIENT October 09, 2024 [facility] FACILITY/LOCATION: [place] NOTE TYPE: PROSTATE - MALE PELVIS Subjective Data Pt states his pain is much in better, not taking pain meds much at this time Additional Data Do you want to see a Diesel Locomotive Firer? No Status: Patient is male Stress Scale: On a scale of 0 to 10, what number best describes how much distress you have experienced in the past week?(0 being no distress and 10 being extreme distress) 1 Social work notified: Pt denied need to see nephrology social worker at this time. Nursing Assessment [...] is much improved SIGNED by: Shreya Souza [facility]08-[facility]-2025 NoteHNO ID: [id number] Author: LUIGI BANKS MD Service: ? Author [...] Continue radiation treatment as planned. Luigi Banks [facility]08-26-2025 NoteHNO ID: [id number] Author: UNRULY DIAZ RN Service: ? Author Type: Registered Nurse Type: Progress Notes Filed: 10/02/2024 10:20 Note Text: Radiation Therapy - Nursing Note (OTV) PATIENT NAME: Abelardo Ivory PATIENT October 02, 2024 [facility] FACILITY/LOCATION: [place] NOTE TYPE: PROSTATE - MALE PELVIS Subjective Data No complaints Additional Data Do you want to see a Diesel Locomotive Firer? No Status: Patient is male Stress Scale: [...] frequency (D/N): same/same. SIGNED by: Unruly Diaz [facility]08-26-2025 History of Present illness Narrative* Luigi [...] NAME: Abelardo Ivory PATIENT October 02, 2024 [facility] FACILITY/LOCATION: [place] NURSING NOTE TYPE: PROSTATE - MALE PELVIS Subjective Data No complaints Additional Data Do you want to see a Diesel Locomotive Firer? No Status: Patient is male Stress Scale: [...] by: Unruly Diaz RN documented in this encounterSelect [facility] [place]-2025 Telephone encounter Note * Telephone Encounter - [...] and denies further needs/concerns. Nazanin Crane RN [facility]08-19-2025 Miscellaneous Notes* Telephone Encounter - Wolf Crane [...] days. Wolf Crane RN documented in this encounterSelect Medical [facility] [place]-19-2025 Telephone encounter Note * Telephone Encounter - Hermila Morse LPN - 09/25/2024 1:37 PM EDT Will make rad/onc nurse know as well. Has radiation tx tomorrow. Hermila Morse LPN [facility]08-19-2025 Telephone encounter Note* Telephone Encounter - Lakeisha Dawkins DO - 09/25/2024 1:22 PM EDT He will have to sign a narcotic agreement form when he is here tomorrow. I will have one ready for him to sign. Lakeisha Dawkins DO [facility]08-19-2025 Telephone encounter Note* Telephone Encounter - Wolf [...] up to 7 days. Wolf Crane RN [facility]08-19-2025 NoteHNO ID: [id number] Author: LUIGI BANKS MD Service: ? Author [...] Continue radiation treatment as planned. Luigi Banks [facility]08-19-2025 History of Present illness Narrative* Luigi Banks [...] NAME: Abelardo Ivory PATIENT September 25, 2024 [facility] FACILITY/LOCATION: [place] NURSING NOTE TYPE: PROSTATE - MALE PELVIS Subjective Data I am still having that pain when I urinated and sometimes just hits gideon Additional Data Do you want to see a Diesel Locomotive Firer? No Status: Patient is male Stress Scale: On a scale of 0 to 10, what number best describes how much distress you have experienced in the past week?(0 being no distress and 10 being extreme distress) 2 Social work notified: Pt denied need to see nephrology social worker at this time. Nursing Assessment [...] by: Shreya Souza RN documented in this encounterSelect Medical [facility] [place]-2025 NoteHNO ID: [id number] Author: SHREYA SOUZA RN Service: ? Author Type: Registered Nurse Type: Progress Notes Filed: 09/25/2024 10:39 Note Text: Radiation Therapy - Nursing Note (OTV) PATIENT NAME: Abelardo Ivory PATIENT September 25, 2024 [facility] FACILITY/LOCATION: [place] NOTE TYPE: PROSTATE - MALE PELVIS Subjective Data I am still having that pain when I urinated and sometimes just hits gideon Additional Data Do you want to see a Diesel Locomotive Firer? No Status: Patient is male Stress Scale: On a scale of 0 to 10, what number best describes how much distress you have experienced in the past week?(0 being no distress and 10 being extreme distress) 2 Social work notified: Pt denied need to see nephrology social worker at this time. Nursing Assessment [...] twice at night. SIGNED by: Shreya Souza [facility]08-18-2025 Telephone encounter Note* Telephone Encounter - Leonardo Downey - 09/24/2024 11:56 AM EDT This has been scheduled. Leonardo Downey [facility]08-18-2025 Miscellaneous Notes* Telephone Encounter - Leonardo Downey [...] possible hydration. Thank you. documented in this encounterSelect Medical [facility] [place]08-18-2025 Telephone encounter Note * Telephone Encounter - Shawna Prakash RN - 09/24/2024 11:[address] Dawkins, Schedule him for BMP with possible hydration this coming . Pt will be in for radiation at 0900. Please schedule for port/picc draw and possible hydration. Thank you. [address]18-2025 Telephone encounter Note* Telephone Encounter - Shawna Prakash RN - 09/24/2024 11:18 AM EDT error [address]18-2025 Miscellaneous Notes* Telephone Encounter - Shawna Prakash RN - 09/24/2024 11:18 AM EDT error documented in this encounterSelect Medical [facility] [place] History of Present illness Narrative* Samina Nunez RT(Antionette) - 09/18/2024 9:00 AM EDT Radiology Service [...] PATIENT PRESENTS WITH AN IMPLANTABLE OR ATTACHED HIGHWAY MAINTAINER: No RADIOLOGY DEPARTMENT: CT; Exam(s) Completed: Abdomen/Pelvis PERIPHERAL IV DATA: Not applicable SIGNED BY: RT Lenin(Antionette) September 18, 2024 1:46 PM documented in this encounterSelect Medical [facility] [place]08-12-2025 NoteHNO ID: [id number] Author: SAMINA NUNEZ RT(R) Service: ? Author Type: Ride Assembly Supervisor Type: Progress Notes Filed: 09/18/2024 13:47 Note [...] PATIENT PRESENTS WITH AN IMPLANTABLE OR ATTACHED HIGHWAY MAINTAINER: No RADIOLOGY DEPARTMENT: CT; Exam(s) Completed: Abdomen/Pelvis PERIPHERAL IV DATA: Not applicable SIGNED BY: RT Lenin(R) September 18, 2024 1:46 [facility]08-06-2025 NoteHNO ID: [id number] Author: MATTHEW GU RN Service: ? Author Type: Registered Nurse Type: Progress Notes Filed: 09/12/2024 16:33 Note Text: This visit was completed by phone. Supercharge Repair Supervisor Pre Chemo Patient identified by name and date of . YES Confirmed date and time for chemotherapy ? YES Other appointments (labs, imaging) discussed? YES Discussed where to park (slicing machine tender), charge for parking YES Discussed where to [...] require immediate assistance. YES - Provided Chemotherapy "when to call" handouts YES - Preventing infection. YES - [...] minutes REFERRAL (RECOMMENDATION): Social Work Matthew Gu [facility] History of Present illness Narrative* Sydni [...] PATIENT PRESENTS WITH AN IMPLANTABLE OR ATTACHED HIGHWAY MAINTAINER: No RADIOLOGY DEPARTMENT: Ultrasound PERIPHERAL IV DATA: Not applicable SIGNED BY: Sydni Chung RDMS RVT September 07, 2024 2:59 PM documented in this encounterSelect Medical [facility]-2025 NoteHNO ID: [id number] Author: SYDNI CHUNG RDMS Service: ? Author Type: Freight Booker Type: Progress Notes Filed: 09/07/2024 14:59 Note [...] PATIENT PRESENTS WITH AN IMPLANTABLE OR ATTACHED HIGHWAY MAINTAINER: No RADIOLOGY DEPARTMENT: Ultrasound PERIPHERAL IV DATA: Not applicable SIGNED BY: Sydni Chung RDMS RVConor September 07, 2024 2:59 [facility]08-01-2025 NoteHNO ID: [id number] Author: UNRULY DIAZ RN Service: ? Author Type: Registered Nurse Type: Progress Notes Filed: 09/07/2024 10:59 Note Text: Radiation Therapy - Patient Education Note PATIENT NAME: Abelardo Ivory PATIENT September 07, 2024 [facility] FACILITY/LOCATION: [place] READINESS TO LEARN Cognitive Ability: Alert and [...] phone list, Bladder function, Diarrhea, Fatigue, and [place] instructions, XRT sheet and Aquaphor handout. 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 Patient has an Onbody or Implanted device: No Signed by: Unruly Diaz [facility]08-01-2025 History of Present illness Narrative* Unruly Diaz RN - 09/07/2024 10:57 AM EDT Radiation Therapy - Patient Education Note PATIENT NAME: Abelardo Ivory PATIENT September 07, 2024 [facility] FACILITY/LOCATION: [place] READINESS TO LEARN Cognitive Ability: Alert and [...] Department phone list, Bladder function, Diarrhea,Fatigue, and [place] instructions, XRT sheet and Aquaphor handout. 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 Patient has an Onbody or Implanted device: No Signed by: Unruly Diaz RN documented in this encounterSelect [facility] [place] History of Present illness Narrative* Luigi Banks MD - 09/07/2024 12:00 AM EDT ABELARDO IVOYR [id number] 09/07/2024 [facility] Department of Radiation Oncology [facility] RADIATION ONCOLOGY SIMULATION NOTE DATE OF [...] Banks M.D./jase 51:56 PM documented in this encounterSelect Medical [facility] [place] History of Present illness Narrative* Luigi Banks MD - 09/07/2024 12:00 AM EDT ABELARDO IVORY [id number] 09/07/2024 [facility] [place] [facility] - Department of Radiation Oncology Treatment [...] and DVH. Electronically Signed Luigi Banks M.D. :21 PM documented in this encounterSelect Medical [facility]08-[facility]-2025 NoteHNO ID: [id number] Author: LUIGI BANKS MD Service: Radiation Oncology Author Type: Physician Type: Progress Notes Filed: 09/14/2024 13:56 Note Text: ABELARDO IVORY [id number] 09/07/2024 [facility] Department of Radiation Oncology [facility] RADIATION ONCOLOGY SIMULATION NOTE DATE OF [...] if applicable. Electronically Signed Luigi Banks M.D./ :56 [facility]08-01-2025 NoteHNO ID: [id number] Author: LUIGI BANKS MD Service: Radiation Oncology Author Type: Physician Type: Progress Notes Filed: 09/18/2024 14:21 Note Text: ABELARDO VIORY [id number] 09/07/2024 [facility] - Department of Radiation Oncology Treatment Planning [...] DVH. Electronically Signed Luigi Banks M.D. 52:21 [facility]07-31-2025 Telephone encounter Note* Telephone Encounter - Elizabeth Ludwig LPN - 09/06/2024 12:21 PM EDT See routing comment below. I will take care of the PICC line when appropriate to schedule. The IR order that's in is for a nephrostomy tube. Elizabeth Ludwig LPN [facility]07-31-2025 Miscellaneous Notes* Telephone Encounter - Elizabeth Ludwig LPN - 09/06/2024 12:21 PM EDT See routing comment below. I will take care of the PICC line when appropriate to schedule. The IR order that's in is for a nephrostomy tube. Elizabeth Ludwig LPN * Telephone Encounter - Lizzette CazaresMegha - 09/06/2024 12:14 PM EDT Received call from [place] stating they are unable to insert picc with order placed. She states they need a Tunneled Picc ordered and [facility] IR would schedule that procedure. * Telephone Encounter - Stacy Gauthier MD - 09/06/2024 9:50 AM EDT Absolutely- will add antegrade stent to procedure if IR is able Stacy Gauthier MD * Telephone Encounter - Chelsea Gutierres - 09/06/2024 8:49 AM EDT Scheduled US for 09/07 PICC LINE /4 @ [facility] [place] * Telephone Encounter - Lakeisha Dawkins DO - 09/05/2024 5:31 PM EDT Lab results from today show significant elevation of serum creatinine and BUN. Ultrasound stat. Also scheduled for potential nephrostomy tube placement at [place] or [place]. * Telephone Encounter - Leonardo Downey - [...] in about 8 weeks. documented in [facility] encounter[facility] [place] Telephone encounter Note * Telephone Encounter - Megha Knight - 09/06/2024 12:14 PM EDT Received call from [facility] stating they are unable to insert picc with order placed. She states they need a Tunneled Picc ordered and [facility] would schedule that procedure. [facility] Work Phone: 1(556) 433-498107-31-2025 NoteHNO ID: [id number] Author: LUIGI BANKS MD Service: ? Author [...] Take 5 mg by mouth once daily. gdfbwybuvwn-bjikggwwz-aqpbyyou (TRELEGY ELLIPTA) 200-62.5-25 mcg inhalation powder Inhale [...] SURGICAL HISTORY OF 12/28/2021 AAA repair - "Stable status post graft repair of abdominal aortic aneurysm." PAST SURGICAL HISTORY OF 2024 Hernia repair [...] negative for prolonged bleedin (more content not included)...[facility]07-31-2025 NoteHNO ID: [id number] Author: UNRULY DIAZ RN Service: ? Author Type: Registered Nurse Type: Progress Notes Filed: 09/14/2024 11:12 Note Text: Radiation Therapy - Nursing Note (Consult) PATIENT NAME: Abelardo Ivory PATIENT September 06, 2024 [facility] FACILITY/LOCATION: [place] Chief Complaint: consult Reason for visit: Consult. Referring physician: Internal provider Dr Dawkins Subjective Data: see pain assessment Additional Data Do you want to see a Diesel Locomotive Firer? No Are you interested in information about fertility? No Status: Patient is male Stress Scale: On a scale of 0 to 10, what number best describes how much distress you have experienced in the past week?(0 being no distress and 10 being extreme distress) 3 Social work notified: no SIGNED [facility]: Unruly [facility] Telephone encounter Note* Telephone Encounter - Stacy Gauthier MD - 09/06/2024 9:50 AM EDT Absolutely- will add antegrade stent to procedure if IR is able Stacy Gauthier MD [facility] Work Phone: 1(305) 520-471007-31-2025 Telephone encounter Note* Telephone Encounter - Earnestine Burch - 09/06/2024 9:11 AM EDT Spoke with Dr. Dawkins office and they stated for you to send message to dr. Dawkins and have him add it on to his order and they will be sure it gets scheduled. Earnestine Bass [facility]07-31-2025 Miscellaneous Notes* Telephone Encounter - Earnestine Burch [...] thx Stacy Gauthier MD documented in this encounter[facility] [place] Telephone encounter Note * Telephone Encounter - Chelsea Gutierres - 09/06/2024 8:49 AM EDT Scheduled US for 09/07 PICC LINE 8/4 @ [address] [place] [facility]07-31-2025 Telephone encounter Note* Telephone Encounter - Stacy Gauthier MD - 09/06/2024 7:[address] Dawkins ordered a left perc tube placement- can you find out where he's having it done, want to add on left antegrade stent placement at same time- thx Stacy Gauthier MD [facility] Work Phone: [phone]) 210-389907-30-2025 Telephone encounter Note* Telephone Encounter - Lakeisha Dawkins DO - 09/05/2024 5:31 PM EDT Lab results from today show significant elevation of serum creatinine and BUN. Ultrasound stat. Also scheduled for potential nephrostomy tube placement at [place] or [place]. [facility]07-30-2025 Telephone encounter Note* Telephone Encounter - Matthew Gu RN - 09/05/2024 3:45 PM EDT Met with patient and introduced myself. Patient was given a My Journey binder with chemocare information, office contact information, thermometer, and additional chemotherapy resource booklets. Patient aware this nurse will review on scheduled appointment date. Matthew Gu RN [facility]07-30-2025 Miscellaneous Notes* Telephone Encounter - Matthew Gu RN - 09/05/2024 3:45 PM EDT Met with patient and introduced myself. Patient was given a My Journey binder with chemocare information, office contact information, thermometer, and additional chemotherapy resource booklets. Patient aware this nurse will review on scheduled appointment date. Matthew Gu RN documented in this encounter[facility] [place] Telephone encounter Note * Telephone Encounter - [...] me in about 8 weeks. [facility]07-30-2025 NoteHNO ID: [id number] Author: LAKEISHA DAWKINS DO Service: ? Author Type: Physician Type: Progress Notes Filed: 09/05/2024 17:01 Note Text: Patient self-referred for muscle invasive bladder cancer. HPI: The patient is a 74-year-old male with a past medical history as outlined below. Developed gross hematuria and noticed debris in urine. Saw Dr. Winston. Had TURBT with "chemo flush." Path below. Referred to [facility] b/c patient declined cystectomy. Per Dr. Christianson's note dated 07/26/2024, "June 2024, began experiencing flank pain, and hematuria, [...] the past 1-1.5 ppd since age 15 years" Pathology from [facility] reviewed at [facility]: A. Urinary bladder, transurethral resection: [...] cough. Clear sputum. Sees Dr. Zuñiga at [facility]. Smokes about 1/2 ppd. No alcohol. PAST [...] SURGICAL HISTORY OF 12/28/2021 AAA repair - "Stable status post graft repair of abdominal aortic aneurysm." PAST SURGICAL HISTORY OF 2024 Hernia repair [...] Take 5 mg by mouth once daily. ulxtlfoazoj-xwhxvtkkd-ovycjime (TRELEGY ELLIPTA) 200-62.5-25 mcg inhalation powder Inhale [...] the sedation, infusion, injec (more content not included)...[facility]07-30-2025 History of Present illness Narrative* Lakeisha Dawkins DO - 09/05/2024 2:19 PM EDT Patient self-referred for muscle invasive bladder cancer. HPI: The patient is a 74-year-old male with a past medical history as outlined below. Developed gross hematuria and noticed debris in urine. Saw Dr. Winston. Had TURBT with "chemo flush." Path below. Referred to [facility] b/c patient declined cystectomy. Per Dr. Christianson's note dated 07/26/2024, "June 2024, began experiencing flank pain, and hematuria, [...] the past 1-1.5 ppd since age 15 years" Pathology from [facility] reviewed at main campus: A. Urinary bladder, [...] cough. Clear sputum. Sees Dr. Zuñiga at [facility]. Smokes about 1/2 ppd. No alcohol. PAST [...] SURGICAL HISTORY OF 12/28/2021 AAA repair - "Stable status post graft repair of abdominal aortic aneurysm." PAST SURGICAL HISTORY OF 2024 Hernia repair [...] Take 5 mg by mouth once daily. sgciadcilma-hmpulnolq-dbnkiipn (TRELEGY ELLIPTA) 200-62.5-25 mcg inhalation powder Inhale [...] use: No Drug use: No Worked for [employer]. [employer] FAMILY HISTORY Problem Relation Age of Onset [...] temperature source Temporal, height 169 cm (5' 6.54"), weight 69.2 kg (152 lb 8 oz), [...] which included preparing to see the patient, cvyu-yu-buzv patient care, completing clinical documentation, obtaining and/or reviewing separately obtained history, performing a medically appropriate examination, counseling and educating the pat ient/family/caregiver, ordering medications, tests, or procedures, communicating with other HCPs (not separately reported), and communicating results to the patient/family/caregiver. Lakeisha Dawkins DO documented in this encounterSelect [facility] [place] Evaluation note* Diagnosis Onset Date Resolution Status Admit Date Abdominal aortic aneurysm (AAA) chronic August 30, 2024 7:53am Atherosclerotic heart disease of [place] coronary artery without angina pectoris chronic August 30, 2024 7:53am Essential hypertension chronic Ju 2024 7:53am History of aortic valve replacement February 12, 2019 chronic August 30 7:53am Hyperlipidemia chronic August 30, 2024 7:53am Smoking greater than 40 pack years chronic August 30, 2024 7:53am GI bleed acute November 07, 025 7:29pm Hemorrhagic shock acute November 07, 2024 7:29pm [facility] Work Phone: 1(344) 262-588707-24-2025 Evaluation note* Diagnosis Onset Date Resolution Status Admit Date Abdominal aortic aneurysm (AAA) chronic August 30, 2024 7:53am Atherosclerotic heart disease of [place] coronary artery without angina pectoris chronic August 30, 2024 7:53am Essential hypertension chronic Ju ly 2024 7:53am History of aortic valve replacement February 12, 2019 chronic August 30 7:53am Hyperlipidemia chronic August 30, 2024 7:53am Smoking greater than 40 pack years chronic August 30, 2024 7:53am GI bleed acute November 07 025 8:14pm Hemorrhagic shock acute November 07, 2024 8:14pm [facility] Work Phone: 1(439) 359-833407-24-2025 Evaluation note* Diagnosis Onset Date Resolution Status Admit Date Atherosclerotic heart disease of [place] coronary artery without angina pectoris chronic August 30, 2024 7:53am Essential hypertension chronic Ju ly 2024 7:53am History of aortic valve replacement February 12, 2019 chronic August 30 7:53am Hyperlipidemia chronic August 30, 2024 7:53am Smoking greater than 40 pack years chronic August 30, 2024 7:53am Abdominal aortic aneurysm (AAA) inactive August 30, 2024 7:53am Hemorrhagic shock acute November 07, 2024 8:14pm GI bleed inactive November 07 025 8:14pm Abdominal aortic aneurysm (AAA) inactive November 18 5:28pm Acute blood loss anemia inactive O ctober 2024 5:28pm Acute upper gastrointestinal hemorrhage inactive November 18 5:28pm Chronic kidney disease inactive Oc tober 2024 5:28pm COPD (chronic obstructive pulmonary disease) inactive November 18, 2024 5:28pm Duodenal ulcer inactive November 182024 5:28pm GI bleed inactive November 18, 2024 5:28pm Hypovolemic shock inactive November 18, 2024 5:28pm UTI (urinary tract infection) inactive November 18 5:28pm [facility] Work Phone: 1(141) 363-761307-23-2025 Telephone encounter Note* Telephone Encounter - Karen Post RN - 08/29/2024 4:48 PM EDT Returned call to Abelardo Ivory regarding establishing care at [facility]. Contacted [facility] and spoke with Saira in hem/onc and she was able to schedule Darrel for: 09/05/2024 @ 2PM with Dr. Lakeisha Dawkins. All questions addressed. Karen KIRBY, RN Specialty Supercharge Repair Supervisor [facility]07-23-2025 Miscellaneous Notes* Telephone Encounter - Karen Post RN - 08/29/2024 4:48 PM EDT Returned call to Abelardo Ivory regarding establishing care at [facility]. Contacted [facility] and spoke with Saira in hem/onc and she was able to schedule Darrel for: 09/05/2024 @ 2PM with Dr. Lakeisha Dawkins. All questions addressed. Karen KIRBY, RN Specialty Supercharge Repair Supervisor * Telephone Encounter - Tabitha Hayes - 08/29/2024 3:26 PM EDT Abelardo Ivory is calling Codey Christianson MD today regarding 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 [place] told him they need information from Dr. Christianson to make sure they have the treatment he needs/getting. Can someone call the patient back Patient has been identified by name and birthdate. Requesting response back: [phone] (home) [phone] (cell) Tabitha Hayes August 29, 2024 documented in this encounterSelect [facility] [place] Telephone encounter Note * Telephone Encounter - Tabitha Hayes - 08/29/2024 3:26 PM EDT Abelardo Ivory is calling Codey Christianson MD today regarding Supercharge Repair Supervisor - Other Patient wants to have his radiation locally at the [facility] in [place]. [place] told him they need information from Dr. Christianson to make sure they have the treatment he needs/getting. Can someone call the patient back Patient has been identified by name and birthdate. Requesting response back: [phone] (home) [phone] (cell) Tabitha Hayes August 29, 2024 [facility]07-23-2025 [facility]07-23-2025 History of Present illness Narrative* Stacy Gauthier [...] (no units) Date Value 02/06/2019 Negative Specific [place], Ur (no units) Date Value 02/06/2019 1.017 [...] Take 5 mg by mouth once daily. xklnjtmotfy-kymdlqxjj-gdnromza (TRELEGY ELLIPTA) 200-62.5-25 mcg inhalation powder Inhale [...] SURGICAL HISTORY OF 12/28/2021 AAA repair - "Stable status post graft repair of abdominal aortic aneurysm." PAST SURGICAL HISTORY OF 2024 Hernia repair [...] T2 +[facility] 07/26/2024 Scr 1.5 06/07/2024 TURBT ([facility]) 01/01/2022 Scr 2.6 Assessment and Plan: CR[facility]- pt with chronic RI, latest eGFR 47 Bladder cancer- s/p TURBT in [place] (?? urologist), on repeat cysto I saw large amount of necrotic tissue starting at the bladder involving the majority of the trigone" -pt with known T2 dx, told him that [facility] is neoadjuvant chemo followed by radical cystectomy and they understand - he has seen oncology, Dr Christianson @ [facility] and per his notes "pt is interested in bladder preservation-we reviewed the RAD SG trial and general logistics" which is a combo of XRT and immunotx (sacituzumab govitecan); they are going to call Meghna and get a tx plan scheduled Left [...] and Pyridium sent in) documented in this encounterSelect [facility] [place]-2025 Telephone encounter Note * Telephone Encounter - Farheen Valentine RN - 08/24/2024 3:24 PM EDT CASE [id number]: Spoke with patient, states he saw urology this week and stent was placed. Patient states he has decided not to do the study and would like to follow in [place] for chemo if possible. Aware Dr Christianson will be notified. [facility]07-18-2025 Miscellaneous Notes* Telephone Encounter - Farheen Valentine RN - 08/24/2024 3:24 PM EDT CASE [id number]: Spoke with patient, states he saw urology this week and stent was placed. Patient states he has decided not to do the study and would like to follow in [place] for chemo if possible. Aware Dr Christianson will be notified. documented in this encounterSelect [facility] [place]-2025 Telephone encounter Note * Telephone Encounter - Farheen Valentine RN - 08/22/2024 12:24 PM EDT CASE [id number]: Left message on voicemail for pt to return call [facility]07-16-2025 Miscellaneous Notes* Telephone Encounter - Farheen Valentine RN - 08/22/2024 12:24 PM EDT CASE [id number]: Left message on voicemail for pt to return call documented in this encounterSelect [facility] [place]-15-2025 Telephone encounter Note * Telephone Encounter - [...] results on phone as they live in [place] Stacy Gauthier MD [facility]07-15-2025 Miscellaneous Notes* Telephone Encounter - Stacy Gauthier [...] results on phone as they live in [place] Stacy Gauthier MD documented in this encounterSelect Medical [facility] [place]07-15-2025 [facility]07-10-2025 Instructions* Patient Instructions* Marisela Dsouza APRN.TIN STACKER - 08/16/2024 10:39 AM EDT PATIENT PREOPERATIVE INSTRUCTIONS Your surgeon has scheduled you for your procedure at this surgery center: [facility] [phone] [address] [place], [place] [address] [address] through the main entrance, and [...] 81 mg chewable tablet Follow surgeon's instructions. wxmosfqwacw-cybmjlilz-deplxmut (TRELEGY ELLIPTA) 200-62.5-25 mcg inhalation powder Continue [...] surgery. - YOU MUST HAVE A RESPONSIBLE COMMUNITY SERVICE OFFICER TAKE YOU HOME. A SEAMER PANTY HOSE, CAB OR UBER COMMUNITY SERVICE OFFICER CANNOT BE [place] RESPONSIBLE COMMUNITY SERVICE OFFICER. - We recommend that a responsible [...] center above. Visitors to any [facility] facility: - An individual who is sick should not visit. - Visitors to patients with COVID-19 must follow these guidelines, which include wearing a mask, eye protection, gown and gloves. [facility]- Visitations are: - Visitation hours are from [...] Advance Directive, please fax a copy to [phone] or [place] GARCIA at [phone] or email to for it to be [...] Marisela Dsouza APRN.CNP 08/16/24 documented in this encounterSelect Medical [facility] [place]-2025 History and physical note * Marisela Dsouza [...] artery disease involving coronary bypass graft of [place] heart without angina pectoris Assessment: Followed by [facility] Cardiology - H/O CABG - taking aspirin [...] the prior echocardiographic exam performed on 09/29/2020 ([facility]). Limited study. Essential hypertension Assessment: taking taking [...] Take 5 mg by mouth once daily. lrcgojtview-urhsznvtt-lsacmeil (TRELEGY ELLIPTA) 200-62.5-25 mcg inhalation powder Sig: [...] a bladder resection in June 2023 at [facility]. Today, he denies pain, rating 0 out [...] SURGICAL HISTORY OF 12/28/2021 AAA repair - "Stable status post graft repair of abdominal aortic aneurysm." PAST SURGICAL HISTORY OF 2024 Hernia repair [...] 5 mg by mouth once daily. Yes dahjgcqbxzx-ykehgurwl-gfxieqvj (TRELEGY ELLIPTA) 200-62.5-25 mcg inhalation powder Inhale [...] 53 Temp 96.8 Resp 16 Ht 5' 5.98" (1.68m) Wt 156 lb 6.4 oz (70.9kg) GdN874% BMI 25.26 kg/(m^2). Diagnostic tests reviewed for [...] within date range. No results found for: "HBA1C" No results found for this or any previous visit (from the past 8760 hours). No results found for this or any previous visit (from the past 13706 hours). Implantable Devices: None Assessment/Plan Malignant neoplasm [...] which included preparing to see the patient, lqxk-ey-kzrz patient care, completing clinical documentation, obtaining and/or reviewing separately obtained history, performing a medically appropriate examination, and counseling and educating the patient/family/caregiver. SIGNATURE: Marisela Dsouza APRN.CNP PATIENT NAME: Abelardo Ivory DATE: August 16, 2024 TIME: 7:23 AM PAGER/CONTACT #: [facility]07-10-2025 History and physical note* Marisela Dsouza APRN.CNP - 08/16/2024 10:00 AM EDT Images from the original note were not included. [place] [facility]esthesia [facility] HISTORY AND PHYSICAL EXAMINATION SERVICE DATE: 08/16/2024 SERVICE TIME: 10:00 AM PRIMARY CARE PHYSICIAN: Padmini Carrasco MD Assessment Patient has the following medical conditions which may affect kirstie-operative course: Preop testing Assessment : See Note for medical conditions which may affect kirstie-operative course was addressed in visit today. 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[place] heart without angina pectoris Assessment: Followed by [facility] Cardiology - H/O CABG - taking aspirin [...] - Exam was compared with the prior [facility] echocardiographic exam performed on 09/29/2020 ([facility]). Limited study. Essential hypertension Assessment: taking taking [...] Take 5 mg by mouth once daily. gmlaohbcqpl-cltwqehwx-tciinkua (TRELEGY ELLIPTA) 200-62.5-25 mcg inhalation powder Sig: [...] a bladder resection in June 2023 at [facility]. Today, he denies pain, rating 0 out [...] SURGICAL HISTORY OF 12/28/2021 AAA repair - "Stable status post graft repair of abdominal aortic aneurysm." PAST SURGICAL HISTORY OF 2024 Hernia repair [...] 5 mg by mouth once daily. Yes lyytkhphklg-rvqzlngtg-vvlhxocp (TRELEGY ELLIPTA) 200-62.5-25 mcg inhalation powder Inhale [...] 53 Temp 96.8 Resp 16 Ht 5' 5.98" (1.68m) Wt 156 lb 6.4 oz (70.9kg) VtM265% BMI 25.26 kg/(m^2). Diagnostic tests reviewed for [...] within date range. No results found for: "HBA1C" No results found for this or any previous visit (from the past 8760 hours). No results found for this or any previous visit (from the past 78354 hours). Implantable Devices: None Assessment/Plan Malignant neoplasm of urinary bladder, unspecified site (HCC) [C67.9] Gross hematuria [R31.0] PLAN Planned Procedure: Procedure(s): CYSTOSCOPY RIGID (N/A) EXCISION BLADDER TUMOR SMALL (0.5 UP TO 2.0 CM) (N/A) INSERTION STENT DOUBLE J (Left) The Following Tests/Procedures Have Been Initiated: Urine culture ordered in [facility] by surgeon Instructions Given to Patient: Instructions located in the after visit summary. Patient given verbal and written preop instructions and voices comprehension and compliance. I spent a total of 40 minutes on the date of the service which included preparing to see the patient, icwb-ix-lhss patient care, completing clinical documentation, obtaining and/or reviewing separately obtained history, performing a medically appropriate examination, and counseling and educating the patient/family/caregiver. SIGNATURE: Marisela Dsouza APRN.CNP PATIENT NAME: Abelardo Ivory DATE: August 16, 2024 TIME: 7:23 AM PAGER/CONTACT #: documented in this encounterSelect Medical [facility] [place]-2025 NoteHNO ID: [id number] Author: KAREN COELHO LPN Service: ? Author Type: LICENSED NURSE Type: Progress Notes Filed: 08/07/2024 14:06 Note Text: Additional intake questions: Has the patient had fever, nausea, vomiting, diarrhea, constipation, fatigue for > 1 week? No Does the patient have a decreased appetite? No Does patient want to see a Diesel Locomotive Firer? No (yes to any of above refer patient to schedulers for dietitian appointment) ) Does patient have any new or increased numbness or tingling of extremities? No Is patient interested in fertility information? No Does patient need any prescription refills? No Does patient have an advanced directive in place? Yes, copies are in Sykio Electronically Signed By: [facility] Coelho [facility] History of Present illness Narrative* Karen Coelho LPN - 08/07/2024 1:06 PM EDT Additional intake questions: Has the patient had fever, nausea, vomiting, diarrhea, constipation, fatigue for > 1 week? No Does the patient have a decreased appetite? No Does patient want to see a Diesel Locomotive Firer? No (yes to any of above refer patient to schedulers for dietitian appointment) ) Does patient have any new or increased numbness or tingling of extremities? No Is patient interested in fertility information? No Does patient need any prescription refills? No Does patient have an advanced directive in place? Yes, copies are in Sykio * Codey Christianson MD - 07/26/2024 10:14 AM EDT [facility] ONCOLOGY INITIAL CONSULT NOTE Date of [...] F) Resp 18 Ht 167.6 cm (5' 6") Wt 71.1 kg (156 lb 12 oz) [...] which included preparing to see the patient, [id number] patient care, completing clinical documentation, obtaining and/or reviewing separately obtained history, performing a medically appropriate examination, counseling and educating the pat ient/family/caregiver, ordering medications, tests, or procedures, communicating with other HCPs (not separately reported), independently interpreting results (not separately reported), communicatingresults to the patient/family/caregiver, and care coordination (not separately reported). Codey Christianson MD Staff Physician Department of Hematology and [place] [address] * Karen Coelho LPN - 07/26/2024 8:59 AM EDT Additional intake questions: Has the patient had fever, nausea, vomiting, diarrhea, constipation, fatigue for > 1 week? No Does the patient have a decreased appetite? No Does patient want to see a Diesel Locomotive Firer? No (yes to any of above refer patient to schedulers for dietitian appointment) ) Does patient have any new or increased numbness or tingling of extremities? No Is patient interested in fertility information? No Does patient need any prescription refills? No Does patient have an advanced directive in place? Yes, copies are in Sykio * Karen Coelho LPN - 07/26/2024 8:32 AM EDT Additional intake questions: Has the patient had fever, nausea, vomiting, diarrhea, constipation, fatigue for > 1 week? No Does the patient have a decreased appetite? No Does patient want to see a Diesel Locomotive Firer? No (yes to any of above refer patient to schedulers for dietitian appointment) ) Does patient have any new or increased numbness or tingling of extremities? No Is patient interested in fertility information? No Does patient need any prescription refills? No Does patient have an advanced directive in place? Yes, copies are in Sykio documented [facility] [place] Telephone encounter Note * Telephone Encounter - [...] holiday. Patient will need repeat TURBT at [facility] due to previously being done at [facility]. [facility] [place]06-27-[facility]25 Miscellaneous Notes* Telephone Encounter - Farheen Valentine, RN - 08/03/2024 3:51 PM EDT CASE [...] hol. Patient will need repeat TURBT at [facility] due to previously being done at [facility]. documented in this encounterSelect [facility] [place] History of Present illness Narrative* Stacy Gauthier [...] (no units) Date Value 02/06/2019 Negative Specific [place], Ur (no units) Date Value 02/06/2019 1.017 [...] eGFR 47 Bladder cancer- s/p TURBT in [place] (?? urologist) pt with T2 dx, told him he needs neoadjuvant chemo (has already seen oncology, Dr Christianson @ [facility]) followed by radical cystectomy; they are not sure of the treatment plan but will need to see Urology @ [facility] if desires cystectomy Left hydro- pt [...] proceed Schedule cysto, TURBT, [facility] stent [facility] documented in this encounterSelect [facility] [place]25 [facility]06-24-2025 History of Present illness Narrative* Samina Nunez, RT(R) - 07/31/2024 2:20 PM EDT Radiology [...] PATIENT PRESENTS WITH AN IMPLANTABLE OR ATTACHED HIGHWAY MAINTAINER: No ALLERGIES: Reviewed and unchanged CONTRAST ALLERGY: [...] Exam(s) Completed: Chest Abdomen Pelvis SIGNATURE: RT Lenin(Antionette) PATIENT NAME: Abelardo Ivory DATE: July 31, 2024 TIME: 2:25 PM documented in this encounterSelect [facility] [place]25 NoteHNO ID: [id number] Author: SAMINA NUNEZ RT(R) Service: ? Author Type: Ride Assembly Supervisor Type: Progress Notes Filed: 07/31/2024 14:26 Note [...] PATIENT PRESENTS WITH AN IMPLANTABLE OR ATTACHED HIGHWAY MAINTAINER: No ALLERGIES: Reviewed and unchanged CONTRAST ALLERGY: [...] Exam(s) Completed: Chest Abdomen Pelvis SIGNATURE: Samina LinseyAveryRT alondra(R) PATIENT NAME: Abelardo Ivory DATE: July 31, 2024 TIME: 2:25 [facility]06-19-2025 NoteHNO ID: [id number] Author: FARHEEN VALENTINE, RN Service: ? Author Type: Registered Nurse [...] presented. Time of Presentation: 1020 [facility]mers [facility] History of Present illness Narrative* Farheen Valentine RN - 07/26/2024 11:42 AM EDT Informed Consent Presentation IRB# [id number] Title: CASE [id number] Adaptive RADiation therapy with concurrent Sacituzumab Govitecan (SG) for bladder preservation in patients with MIBC (RAD-SG). Consent expiration date 04/15/2025 Spoke with patient and family at the request of Dr. Codey Christianson MD--[phone]. Treatment plan, including all testing, potential risks/benefits, [...] 1020 Farheen Sommers RN documented in this encounterSelect [facility] [place]25 NoteHNO ID: [id number] Author: CODEY CHRISTIANSON MD Service: ? Author Type: Physician Type: Progress Notes Filed: 08/07/2024 14:06 Note Text: [facility] ONCOLOGY INITIAL CONSULT NOTE Date of Service: [...] ?F) Resp 18 Ht 167.6 cm (5' 6") Wt 71.1 kg (156 lb 12 oz) [...] which included preparing to see the patient, [id number] patient care, completing clinical documentation, obtaining and/or reviewing separately obtained history, performing a medically appropriate examination, counseling and educating the patient/family/caregiver, ordering medications, tests, or procedures, communicating with other HCPs (not separately reported), independently interpreting results (not separately reported), communicating results to the patient/family/caregiver, and care coordination (not separately reported). Codey Christianson MD Staff Physician Department of Hematology and Medical Oncology [facility] (more content not included)...[facility]06-19-2025 NoteHNO ID: [id number] Author: KAREN COELHO LPN Service: ? Author Type: LICENSED NURSE Type: Progress Notes Filed: 08/07/2024 14:06 Note Text: Additional intake questions: Has the patient had fever, nausea, vomiting, diarrhea, constipation, fatigue for > 1 week? No Does the patient have a decreased appetite? No Does patient want to see a Diesel Locomotive Firer? No (yes to any of above refer patient to schedulers for dietitian appointment) ) Does patient have any new or increased numbness or tingling of extremities? No Is patient interested in fertility information? No Does patient need any prescription refills? No Does patient have an advanced directive in place? Yes, copies are in Epic Electronically Signed By: MIRIAM DavisHolzer Hospital06-19-2025 NoteHNO ID: [id number] Author: COELHO, KAREN, PARTS EXPEDITER Service: ? Author Type: LICENSED NURSE Type: Progress Notes Filed: 08/07/2024 14:06 Note Text: Additional intake questions: Has the patient had fever, nausea, vomiting, diarrhea, constipation, fatigue for > 1 week? No Does the patient have a decreased appetite? No Does patient want to see a Diesel Locomotive Firer? No (yes to any of above refer patient to schedulers for dietitian appointment) ) Does patient have any new or increased numbness or tingling of extremities? No Is patient interested in fertility information? No Does patient need any prescription refills? No Does patient have an advanced directive in place? Yes, copies are in Epic Electronically Signed By: MIRIAM DavisHolzer Hospital05-22-2025 [facility]05-21-2025 [facility] 06-22-2024 Radiology Diagnostic study note [facility] Imaging Services [address] [place] [address] Abdomen/Pelvis WITH Contrast MR#: [id number] Acct: [id number] Name: ABELARDO IVORY Rep #: [id number] : 1950 M 74 From: Moses Briseno MD PCP: Dr. Padmini Carrasco MD Status: REG CLI Study:Abdomen/Pelvis WITH Contrast Date of Ex am: 06/21/24 Exam# [id number] Ordering Dr: Bhargavi Winston MD PROCEDURE: ABDOMEN/PELVIS [...] MD; Dr. Jose J Winston MD ~ Junior Engineer: Signed [facility]05-13-2025 Evaluation note* Diagnosis Onset Date Resolution Status Admit Date Pre-operative cardiovascular examination acute June 19, 2024 8:36am Abdominal aortic aneurysm (AAA) chronic June 19, 2024 8:36am Atherosclerotic heart diseas e of [place] coronary artery without angina pectoris chronic June [...] 2024 7:53am Atherosclerotic heart diseas e of [place] coronary artery without angina pectoris chronic August 7:53am Essential hypertension chronic Ju ly 2024 7:53am History of aortic valve replacement February 12, 2019 chronic August 30 7:53am Hyperlipidemia chronic August 30, 2024 7:53am Smoking greater than 40 pack years chronic August 30, 2024 7:53am [facility] Work Phone: 1(192) 388-860505-13-2025 Evaluation note* Diagnosis Onset Date Resolution Status Admit Date Pre-operative cardiovascular examination acute June 19, 2024 8:36am Abdominal aortic aneurysm (AAA) chronic June 19, 2024 8:36am Atherosclerotic heart diseas e of [place] coronary artery without angina pectoris chronic June 8:36am Essential hypertension chronic Ma 2024 8:36am History of aortic valve replacement February 12, 2019June 19, 2024 8:36am Hyperlipidemia chronic June 19, 2024 8:36am Smoking greater than 40 pack years chronic June 19, 2024 8:36am Abdominal aortic aneurysm (AAA) chronic August 30, 2024 7:53am Atherosclerotic heart diseas e of [place] coronary artery without angina pectoris chronic August 7:53am Essential hypertension chronic Ju ly 2024 7:53am History of aortic valve replacement February 12, 2019 chronic August 30 7:53am Hyperlipidemia chronic August 30, 2024 7:53am Smoking greater than 40 pack years chronic August 30, 2024 7:53am [facility] Work Phone: 1(839) 202-903504-09-2025 Radiology Diagnostic study note [facility] Imaging Services [address] [place], [place] [address] Abdomen/Pelvis without Cont MR#: [id number] Acct: [id number] Name: ABELARDO IVORY Rep #: [id number] : 1950 M 74 From: Diana Huynh MD PCP: Dr. Padmiin Carrasco MD Status: REG ER Study:Abdomen/Pelvis without Cont Date of Exa m: 05/16/24 Exam# [id number] Ordering Dr: Kelly Turpin DO PROCEDURE: ABDOMEN/PELVIS [...] Padmini Carrasco MD; Jeffery Turpin DO ~ Junior Engineer: Signed [facility]02-14-2025 Evaluation note* Diagnosis Onset Date Resolution Status Admit Date COPD (chronic obstructive pulmonary disease) chronic March 12:36pm Smoking greater than 40 pack years chronic March 23, 2 025 12:36pm [facility] Work Phone: [phone] Evaluation note* Diagnosis Onset Date Resolution Status Admit Date COPD (chronic obstructive pulmonary disease) chronic March 12:36pm Smoking greater than 40 pack years chronic March 23, 2 025 12:36pm Pre-operative cardiovascular examination acute June 19, 2024 8:36am Abdominal aortic aneurysm (AAA) chronic June 19, 2024 8:36am Atherosclerotic heart disease of [place] coronary artery without angina pectoris chronic June 19, 2024 8:36am Essential hypertension chronic 2024 8:36am History of aortic valve replacement February 12, 2019 chronic June 19, 2024 8:36am Hyperlipidemia chronic June 19, 2024 8:36am Smoking greater than 40 pack years chronic June 19, 2024 8:36am [facility] Work Phone: 1([phone]) 541-580612-26-2024 Evaluation note* Diagnosis Onset Date Resolution Status Admit Date S/P inguinal hernia repair acute February 02, 2024 8:27am COPD (chronic obstructive pulmonary disease) chronic March 12:36pm Smoking greater than 40 pack years chronic March 23 025 12:36pm [facility] Work Phone: 1(621) 202-592712-11-2024 [facility]04-21-2023 Progress note Author Tonia Jenkins [facility] May 28, 2022 11:31am Note Date/Time May 28, 2022 11: 18am [facility] [address] [place] [address] Progress Note - Wound Care 05/28/22 1116 MR#: [id number] Acct: [id number] Name: ABELARDO IVORY Rep #:[id number] : [...] 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 Patient was understandably quite ill following [...] Method Room Air Charges/Coding Procedures Integumentary 111xxx-113xx: 51936 Sylvia subq tissue 20 sq cm/< Physical [...] Recorded Date Recorded By Document 05/14/22 08:07 [id number] 05/14/22 08:18 Document 05/21/22 08:08 [facility] [id number] 05/21/22 08:20 [facility] Document 05/28/22 08:47 [facility] [id number] 05/28/22 08:52 [facility] 05/14/22 05/21/22 05/28/22 08:07 08:08 08:47 - Today's Visit Information Type of service Follow-up Visit Follow-up Visit Follow-up Visit (Physician/TIN STACKER (Physician/TIN STACKER (Physician/TIN STACKER ) ) ) Arrival Mode Ambulatory Ambulatory [...] Recorded Date Recorded By Document 05/14/22 08:07 [id number] 05/14/22 08:18 Document 05/21/22 08:08 [facility] [id number] 05/21/22 08:20 [facility] Document 05/28/22 08:47 [facility] [id number] 05/28/22 08:52 [facility] 05/14/22 05/21/22 05/28/22 08:07 08:08 08:47 Wound [...] (34-66%) None Present (0 %) -Granulation Quality [place] -Slough/Fibrin Yes Yes Yes -Necrosis Amt Small [...] Date Recorded By Document 05/14/22 08:51 PL [id number] 05/14/22 09:00 PL Document 05/21/22 08:55 PL [id number] 05/21/22 08:57 PL Document 05/28/22 09:25 PL [id number] 05/28/22 09:27 PL 05/14/22 05/21/22 05/28/22 08:51 [...] Recorded Date Recorded By Document 05/14/22 08:58 [id number] 05/14/22 08:59 Document 05/21/22 08:56 Desktop 05/21/22 08:57 Document 05/28/22 09:06 [id number] 05/28/22 09:07 05/14/22 05/21/22 05/28/22 08:58 08:56 [...] Cosigner Signature (if applicable): CC: ~ Signed [facility] Work Phone: 1(328) 497-431704-14-2023 Progress note 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 Patient was understandably quite ill following [...] Method Room Air Charges/Coding Procedures Integumentary 111xxx-113xx: 06225 Sylvia subq tissue 20 sq cm/< Physical [...] Recorded Date Recorded By Document 05/14/22 08:07 [id number] 05/14/22 08:18 Document 05/21/22 08:08 [facility] [id number] 05/21/22 08:20 [facility] 05/14/22 05/21/22 08:07 08:08 - Today's Visit Information Type of service Follow-up Visit Follow-up Visit (Physician/TIN STACKER (Physician/TIN STACKER ) ) Arrival Mode Ambulatory Ambulatory Transfer [...] Recorded Date Recorded By Document 05/14/22 08:07 [id number] 05/14/22 08:18 JF Document 05/21/22 08:08 [facility] [id number] 05/21/22 08:20 BM 05/14/22 05/21/22 08:07 08:08 Wound Center Nurse [...] (34-66%) None Present (0 %) -Granulation Quality [place] -Slough/Fibrin Yes Yes -Necrosis Amt Small (1-33%) [...] Date Recorded By Document 05/14/22 08:51 PL [id number] 05/14/22 09:00 PL Document 05/21/22 08:55 PL [id number] 05/21/22 08:57 PL 05/14/22 05/21/22 08:51 08:55 [...] Healed- Epithelialized #8 Right Lat ankle -Time 08: 08:45 -Correct Patient Yes Yes [...] No No #3 R Ant Ankle -Time 08: 08:45 [...] Recorded Date Recorded By Document 05/14/22 08:58 [id number] 05/14/22 08:59 Document 05/21/22 08:56 Desktop 05/21/22 [...] Cosigner Signature (if applicable): CC: ~ Signed [facility] Work Phone: 1(942) 728-556204-07-2023 Progress note Author Tonai Jenkins [facility] May 14, 2022 8:53am Note Date/Time May 14, 2022 8:53 am [facility] [address] [place] [address] Progress Note - Wound Care 05/14/22 0846 MR#: [id number] Acct: [id number] Name: ABELARDO IVORY Rep #:[id number] : [...] 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 Patient was understandably quite ill following [...] Multi Select Codes Integumentary Integumentary CPT Codes: 15060 Sylvia subq tissue 20 sq cm/< Physical [...] lat mal and R ant ankle/sanchez remain. [place], granulation tissue at the wound beds. Good [...] Date Recorded By Document 05/14/22 08:07 [facility] [id number] 05/14/22 08:18 [facility] 05/14/22 08:07 - Today's Visit Information Type of service Follow-up Visit (Physician/TIN STACKER ) Arrival Mode Ambulatory Patient Requires Transmission-Based [...] Patient Pain Free? Yes WC - Nurse 1 - General Ulcer Measurement Start: 05/14/22 08:07 Freq: Status: Active Protocol: Activity Type Activity Date Activity User E-sign Co-sign Detail Recorded Client Recorded Date Recorded By Document 05/14/22 08:07 KENTRELL [id number] 05/14/22 08:18 KENTRELL 05/14/22 08:07 Wound Center [...] Scar -Granulation Amt Medium (34-66%) -Granulation Quality [place] -Slough/Fibrin Yes -Necrosis Amt Small (1-33%) -Necrotic [...] Cosigner Signature (if applicable): CC: ~ Signed [facility] Work Phone: 1(477) 519-456104-05-2023 Procedure [facility] 05-07-2022 Progress note Author Tonia Jenkins [facility] May 07, 2022 12:01pm Note Date/Time May 07, 2022 12: 01pm [facility] [address] [place] [address] Progress Note - Wound Care 05/07/22 1156 MR#: [id number] Acct: [id number] Name: ABELARDO IVORY Rep #:[id number] : [...] 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 Patient was understandably quite ill following [...] Air Charges/Coding Wound Center CF Procedures 96XXX-98XXX: 03584 RMVL DEVITAL TIS ADDL 20CM/< Multi Select Codes Wound Center CF Procedures 96XXX-98XXX: 39657 RMVL DEVITAL TIS ADDL 20CM/< Physical Exam [...] have healed. Only 4 remain on RLE. [place], granulation tissue at the wound beds. Good bleeding. No significant erythema, foul odor, drainage noted. Left wrist wound with pink granulation tissue at base, minimal slough. Significantly decreased in size from last week. 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: R therapist phys lower leg Laterality: Right Type of Debridement: [...] Date Recorded By Document 04/09/22 13:30 AK [id number] 04/09/22 13:42 AK Document 04/16/22 14:11 VA [id number] 04/16/22 14:21 AK Document 04/23/22 14:03 TN [id number] 04/23/22 14:17 TN Document 04/30/22 13:54 AK [id number] 04/30/22 14:09 AK Document 05/07/22 10:14 [facility] [id number] 05/07/22 10:26 BM 04/09/22 04/16/22 04/23/22 13:30 14:11 14:03 - Today's Visit Information Type of service Initial Visit Follow-up Visit Follow-up Visit (Physician/TIN STACKER (Physician/TIN STACKER ) ) Arrival Mode Ambulatory Ambulatory Ambulatory [...] Type of service Follow-up Visit Initial Visit (Physician/TIN STACKER ) Arrival Mode Ambulatory Ambulatory Transfer Assistance [...] Date Recorded By Document 04/09/22 13:30 AK [id number] 04/09/22 13:42 AK Document 04/16/22 14:11 AK [id number] 04/16/22 14:21 AK Document 04/23/22 14:03 TN [id number] 04/23/22 14:17 TN Document 04/30/22 13:54 AK [id number] 04/30/22 14:09 AK Document 05/07/22 10:14 [facility] [id number] 05/07/22 10:26 BMF 04/09/22 04/16/22 04/23/22 13:30 [...] (34-66%) Medium (34-66%) %) -Granulation Quality N/A [place] Red -Slough/Fibrin Yes Yes Yes -Necrosis Amt [...] Present (0 %) %) -Granulation Quality N/A [place] -Slough/Fibrin Yes Yes Yes -Necrosis Amt Large [...] Present (0 %) %) -Granulation Quality N/A [place] -Slough/Fibrin Yes Yes Yes -Necrosis Amt Large [...] None Present (0 %) %) -Granulation Quality [place] -Slough/Fibrin Yes Yes Yes -Necrosis Amt Large [...] Date Recorded By Document 04/09/22 15:12 PL [id number] 04/09/22 15:29 PL Document 04/16/22 15:08 PL [id number] 04/16/22 15:18 PL Document 04/23/22 15:17 PL [id number] 04/23/22 15:26 PL Document 04/30/22 15:00 PL [id number] 04/30/22 15:08 PL Document 05/07/22 10:45 PL [id number] 05/07/22 10:57 PL 04/09/22 04/16/22 04/23/22 15:12 [...] cm No #8 Right Lat Foot -Time 14: 14:25 [...] Date Recorded By Document 04/09/22 15:05 MT [id number] 04/09/22 15:16 MT Document 04/16/22 14:59 AK [id number] 04/16/22 15:01 AK Document 04/23/22 14:53 [facility] [id number] 04/23/22 14:57 [facility] Document 04/30/22 15:04 VA [id number] 04/30/22 15:07 VA Document 05/07/22 11:08 [facility] [id number] 05/07/22 11:09 [facility] 04/09/22 04/16/22 04/23/22 15:05 14:59 14:53 Wound [...] Secured with Tape -Other Covering DRSG PER TN RN -Promogran #7 Right 1st Toe -Ulcer Cleansing Rinsed/ Irrigated with Saline -Foul Odor after Cleansing No -Negative Pressure Wound Therapy -Primary Dressing Applied -Other Dressing SANTYL -Primary Dressing Covered/Secured with Dry Gauze & Roll Gauze, Secured with Tape -Other Covering DRSG PER TN RN -Promogran #6 R Dorsal -Ulcer Cleansing Rinsed/ Irrigated with Saline -Foul Odor after Cleansing No -Negative Pressure Wound Therapy -Primary Dressing Applied -Other Dressing SANTYL -Primary Dressing Covered/Secured with Dry Gauze & Roll Gauze, Secured with Tape -Other Covering DRSG PER TN -Promogran #5 L wrist -Ulcer Cleansing Rinsed/ Rinsed/ Irrigated with Irrigated with Saline Saline -Foul Odor after Cleansing No No -Negative Pressure Wound Therapy N/A -Primary Dressing Applied Promogran Promogran C Hydrogel ($) Mahnaz Matter Mahnaz Matter, Mepilex Border -Other Dressing DRSG PER [place] RN -Primary Dressing Covered/Secured with Dry Gauze [...] Cosigner Signature (if applicable): CC: ~ Signed [facility] Work Phone: 1(164) 184-643903-27-2023 Procedure [facility] 04-30-2022 Progress note Author Tonia Jenkins [facility] April 30, 2022 2:55pm Note Date/Time April 30, 2022 2:3 8pm [facility] [address] [place] [address] Progress Note - Wound Care 04/30/22 1435 MR#: [id number] Acct: [id number] Name: ABELARDO IVORY Rep #:[id number] : [...] 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 Patient was understandably quite ill following [...] Air Charges/Coding Wound Center CF Procedures 96XXX-98XXX: 64411 RMVL DEVITAL TIS 20 CM/< Multi Select Codes Wound Center CF Procedures 96XXX-98XXX: 26716 RMVL DEVITAL TIS 20 CM/< Physical Exam [...] few more have healed since last week. [place], granulation tissue at the wound beds. Good bleeding. No significant erythema, foul odor, drainage noted. Left wrist wound with pink granulation tissue at base, minimal slough. Significantly decreased in size from last week. 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: R therapist phys lower leg Laterality: Right Type of Debridement: [...] Recorded Date Recorded By Document 04/09/22 13:30 VA [id number] 04/09/22 13:42 AK Document 04/16/22 14:11 AK [id number] 04/16/22 14:21 AK Document 04/23/22 14:03 TN [id number] 04/23/22 14:17 TN Document 04/30/22 13:54 AK [id number] 04/30/22 14:09 AK 04/09/22 04/16/22 04/23/22 13:30 14:11 14:03 - Today's Visit Information Type of service Initial Visit Follow-up Visit Follow-up Visit (Physician/TIN STACKER (Physician/TIN STACKER ) ) Arrival Mode Ambulatory Ambulatory Ambulatory [...] Visit Information Type of service Follow-up Visit (Physician/TIN STACKER ) Arrival Mode Ambulatory Transfer Assistance Patient [...] Patient Pain Free? Yes WC - Nurse 1 - General Ulcer Measurement Start: 04/09/22 13:29 Freq: Status: Active Protocol: Activity Type Activity Date Activity User E-sign Co-sign Detail Recorded Client Recorded Date Recorded By Document 04/09/22 13:30 AK [id number] 04/09/22 13:42 AK Document 04/16/22 14:11 AK [id number] 04/16/22 14:21 AK Document 04/23/22 14:03 TN [id number] 04/23/22 14:17 MT Document 04/30/22 13:54 AK [id number] 04/30/22 14:09 AK 04/09/22 04/16/22 04/23/22 13:30 [...] (34-66%) Medium (34-66%) %) -Granulation Quality N/A [place] Red -Slough/Fibrin Yes Yes Yes -Necrosis Amt [...] Present (0 %) %) -Granulation Quality N/A [place] -Slough/Fibrin Yes Yes Yes -Necrosis Amt Large [...] None Present (0 %) %) -Granulation Quality [place] -Slough/Fibrin Yes Yes Yes -Necrosis Amt Large [...] Present (0 %) %) -Granulation Quality N/A [place] -Slough/Fibrin Yes Yes Yes -Necrosis Amt Large [...] Date Recorded By Document 04/09/22 15:12 PL [id number] 04/09/22 15:29 PL Document 04/16/22 15:08 PL [id number] 04/16/22 15:18 PL Document 04/23/22 15:17 PL [id number] 04/23/22 15:26 PL 04/09/22 04/16/22 04/23/22 15:12 [...] Recorded Date Recorded By Document 04/09/22 15:05 TN [id number] 04/09/22 15:16 TN Document 04/16/22 14:59 VA [id number] 04/16/22 15:01 AK Document 04/23/22 14:53 [facility] [id number] 04/23/22 14:57 [facility] 04/09/22 04/16/22 04/23/22 15:05 14:59 14:53 Wound [...] 1 week or sooner as needed. 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 Patient was understandably quite ill following [...] Air Charges/Coding Wound Center CF Procedures 96XXX-98XXX: 15213 RMVL DEVITAL TIS 20 CM/< Multi Select Codes Wound Center CF Procedures 96XXX-98XXX: 47986 RMVL DEVITAL TIS 20 CM/< Physical Exam [...] appearance. Some have healed since last week. [place], granulation tissue at the wound beds. Good bleeding. No significant erythema, foul odor, drainage noted. Left wrist wound with pink granulation tissue at base, minimal slough. Significantly decreased in size from last week. 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: R therapist phys lower leg Laterality: Right Type of Debridement: [...] Start: 04/09/22 13:29 Freq: Status: Active Protocol: TIERRA Activity Type Activity Date Activity User E-sign Co-sign Detail Recorded Client Recorded Date Recorded By Document 04/09/22 13:30 VA [id number] 04/09/22 13:42 AK Document 04/16/22 14:11 VA [id number] 04/16/22 14:21 AK Document 04/23/22 14:03 TN [id number] 04/23/22 14:17 TN 04/09/22 04/16/22 04/23/22 13:30 14:11 14:03 - Today's Visit Information Type of service Initial Visit Follow-up Visit Follow-up Visit (Physician/TIN STACKER (Physician/TIN STACKER ) ) Arrival Mode Ambulatory Ambulatory Ambulatory [...] Recorded Date Recorded By Document 04/09/22 13:30 VA [id number] 04/09/22 13:42 AK Document 04/16/22 14:11 VA [id number] 04/16/22 14:21 AK Document 04/23/22 14:03 TN [id number] 04/23/22 14:17 TN 04/09/22 04/16/22 04/23/22 13:30 14:11 14:03 Wound [...] (34-66%) Medium (34-66%) %) -Granulation Quality N/A [place] Red -Slough/Fibrin Yes Yes Yes -Necrosis Amt [...] Present (0 %) %) -Granulation Quality N/A [place] -Slough/Fibrin Yes Yes Yes -Necrosis Amt Large [...] None Present (0 %) %) -Granulation Quality [place] -Slough/Fibrin Yes Yes Yes -Necrosis Amt Large [...] Present (0 %) %) -Granulation Quality N/A [place] -Slough/Fibrin Yes Yes Yes -Necrosis Amt Large (67-100%) Large (67-100%) Large (67-100%) -Necrotic Tissue Type Eschar Adherent Slough Eschar -Structure Exposed N/A N/A -Texture (Kirstie-wound Skin Appearance) No Abnormality, Assessed Assessed, Assessed Scarring -Moisture (Kirstie-wound Skin Appearance) Assessed,Dry/ Dry/Scaly Assessed Scaly -Color (Ikrstie-wound Skin Appearance) No Abnormality, Assessed Assessed Assessed [...] Date Recorded By Document 04/09/22 15:12 PL [id number] 04/09/22 15:29 PL Document 04/16/22 15:08 PL [id number] 04/16/22 15:18 PL Document 04/23/22 15:17 PL [id number] 04/23/22 15:26 PL 04/09/22 04/16/22 04/23/22 15:12 [...] Date Recorded By Document 04/09/22 15:05 MT [id number] 04/09/22 15:16 MT Document 04/16/22 14:59 AK [id number] 04/16/22 15:01 AK Document 04/23/22 14:53 [facility] [id number] 04/23/22 14:57 [facility] 04/09/22 04/16/22 04/23/22 15:05 14:59 14:53 Wound [...] Cosigner Signature (if applicable): CC: ~ Signed [facility] Work Phone: 1(913) 359-675803-10-2023 Progress note Author Tonia Jenkins [facility] April 16, 2022 4:54pm Note Date/Time April 16, 2022 4:0 8pm [facility] [address] [place] [address] Progress Note - Wound Care 04/16/22 1605 MR#: [id number] Acct: [id number] Name: ABELARDO IVORY Rep #:[id number] : 1950 72 From: Tonia ACUNA PCP: Dr. 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 Patient was understandably quite ill following [...] Cannula Charges/Coding Wound Center CF Procedures 96XXX-98XXX: 99777 RMVL DEVITAL TIS 20 CM/< Multi Select Codes Wound Center CF Procedures 96XXX-98XXX: 27621 RMVL DEVITAL TIS 20 CM/< Physical Exam [...] Debridement Note Debridement Note Wound debrided: R therapist phys lower leg Laterality: Right Type of Debridement: [...] Date Recorded By Document 04/09/22 13:30 LYNETTE [id number] 04/09/22 13:42 AK Document 04/16/22 14:11 VA [id number] 04/16/22 14:21 AK 04/09/22 04/16/22 13:30 14:11 - Today's Visit Information Type of service Initial Visit Follow-up Visit (Physician/TIN STACKER ) Arrival Mode Ambulatory Ambulatory Transfer Assistance [...] Recorded Date Recorded By Document 04/09/22 13:30 VA [id number] 04/09/22 13:42 AK Document 04/16/22 14:11 VA [id number] 04/16/22 14:21 AK 04/09/22 04/16/22 13:30 14:11 [...] Present (0 Medium (34-66%) %) -Granulation Quality [place] -Slough/Fibrin Yes Yes -Necrosis Amt Large (67-100%) [...] (0 Medium (34-66%) %) -Granulation Quality N/A [place] -Slough/Fibrin Yes Yes -Necrosis Amt Large (67-100%) [...] (0 Medium (34-66%) %) -Granulation Quality N/A [place] -Slough/Fibrin Yes Yes -Necrosis Amt Large (67-100%) [...] (0 Medium (34-66%) %) -Granulation Quality N/A [place] -Slough/Fibrin Yes Yes -Necrosis Amt Large (67-100%) [...] Date Recorded By Document 04/09/22 15:12 PL [id number] 04/09/22 15:29 PL Document 04/16/22 15:08 PL [id number] 04/16/22 15:18 PL 04/09/22 04/16/22 15:12 15:08 [...] Date Recorded By Document 04/09/22 15:05 MT [id number] 04/09/22 15:16 MT Document 04/16/22 14:59 AK [id number] 04/16/22 15:01 AK 04/09/22 04/16/22 15:05 14:59 [...] in 1 week or sooner as needed. 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 Patient was understandably quite ill following [...] edema. He does not currently wear compression. [facility] Medical History Abdominal aortic aneurysm (AAA) Anemia Arthritis Atherosclerotic heart disease of [place] coronary artery without angina pectoris Bilateral inguinal [...] Arthritis Diabetes Brother Cancer Unsure what kind- "just a lump on his neck" Surgical History H/O coronary artery bypass surgery [...] Debridement Note Debridement Note Wound debrided: R therapist phys lower leg Laterality: Right Type of Debridement: [...] Date Recorded By Document 04/09/22 13:30 LYNETTE [id number] 04/09/22 13:42 LYNETTE 04/09/22 13:30 WC - Today's Visit Information Type of service Initial Visit Arrival Mode Ambulatory Patient Identification Verified (Name & Yes ) Patient Requires Transmission-Based No Precautions Safety Precautions NA History Since Last Visit- (Skip if this is Patient's initial visit) Left Footwear Regular Shoe Right Footwear Regular Shoe Pain Scale: 0-10 Numeric Is Patient Pain Free? No - Nurse 1 - General Ulcer Measurement Start: 04/09/22 13:29 Freq: Status: Active Protocol: Activity Type Activity Date Activity User E-sign Co-sign Detail Recorded Client Recorded Date Recorded By Document 04/09/22 13:30 LYNETTE [id number] 04/09/22 13:42 LYNETTE 04/09/22 13:30 Wound Center [...] Date Recorded By Document 04/09/22 15:12 PL [id number] 04/09/22 15:29 PL 04/09/22 15:12 Wound Center [...] Recorded Date Recorded By Document 04/09/22 15:05 TN [id number] 04/09/22 15:16 TN 04/09/22 15:05 Wound Care Center Nurse 3 [...] Pressure Charges/Coding Wound Center CF Procedures 96XXX-98XXX: 81576 RMVL DEVITAL TIS 20 CM/< Multi Select Codes Wound Center CF Procedures 96XXX-98XXX: 66583 RMVL DEVITAL TIS 20 CM/< Assessment/Plan Assessment/Plan [...] Cosigner Signature (if applicable): CC: ~ Signed [facility] Work Phone: 1(775) 336-475001-26-[address] Banks [facility] March 04, 2022 2:42pm Note Date/Time March 04, 2022 2 :24pm [facility] Medical Records Department [address] [place] [address] Discharge Summary 03/04/22 1423 MR#: [id number] Acct: [id number] Name: ABELARDO IVORY Rep #:[id number] : 1950 72 From: Beatris Banks DO PCP: Dr. Ezekiel Carrasco MD Status: ADM IN Location: [facility] [id number]- 1 Providers Date of Admission: 03/02/22 Date [...] the medical floor and placed on IV [id number]-Ufvmca47 every 8, placed on ceftriaxone and azithromycin [...] 78.5 H, Lymph % (Auto) 17.2 L, Hawkins % (Auto) 3.5, Eos % (Auto) 0.0, [...] Self Care Charges/Coding Visit Charges Inpatient E&M: 23184 Disch Hosp >30min 03/04/22 1442 <Electronically signed by Beatris Banks DO> Cosigner Signature (if applicable): CC: Dr. Noe Suarez MD; Dr. Ezekiel Carrasco MD; Dr. Kwame Alex MD; Dr. Beatris Banks DO~ Signed [facility] Work Phone: 1(494) 589-284601-25-[address] Banks [facility] March 03, 2022 4:12pm Note Date/Time March 03, 2022 4 :12pm [facility] Medical Records Department [address] [place] [address] Progress Note - Hospitalist 03/03/22 1608 MR#: [id number] Acct: [id number] Name: ABELARDO IVORY Rep #:[id number] : 1950 72 From: Beatris Banks DO PCP: Dr. Ezekiel Carrasco MD Status: ADM IN Location: [place] [address] Subjective Subjective Patient states he is at [...] (Auto) 78.5 H, Lymph % (Auto) 19.0, [place] % (Auto) 2.2, Eos % (Auto) 0.0, [...] as able AAA with repair -Repair at [facility] [place] in December 2021 -Continue tobacco cessation -Continue [...] no intubation Charges/Coding Visit Charges Inpatient E&M: 13700 Subs Hosp L2 03/03/22 1612 <Electronically signed by Beatris Banks DO> Cosigner Signature (if applicable): CC: ~ Signed [facility] Work Phone: 1(840) 838-179201-24-[address] Garland [facility] March 02, 2022 3:36pm Note Date/Time March 02, 2022 1 0:07am [facility] Medical Records Department [facility] [place] [address] [place] [address] Emergency Department Summary 03/02/22 MR#: [id number] Acct: [id number] Name: ABELARDO IVORY Rep #:[id number] : [...] (AAA) Anemia Arthritis Atherosclerotic heart disease of [place] coronary artery without angina pectoris Bilateral inguinal [...] Arthritis Diabetes Brother Cancer Unsure what kind- "just a lump on his neck" Surgical History H/O coronary artery bypass surgery [...] % (Auto) 66.7 Lymph % (Auto) 27.6 Hawkins % (Auto) 5.1 Eos % (Auto) 0.2 [...] rate of 75 no acute signs of NH or ischemia. Discharge Plan Triage Chief Complaint: [...] Provider] - Disposition Disposition: Acute Care Hospital [facility] What to do if you have Problems For any increased pain, shortness of breath, bleeding, nausea or vomiting, chestpain, or any unexpected problems, contact your Primary Care Provider. Call [facility] ([phone]) or report to the closest Emergency Room. Call 911 if necessary. 03/02/22 1536 <Electronically signed by Nhan Garland MD> Cosigner Signature (if applicable): CC: Dr. Ezekiel Carrasco MD ~ Signed [facility] Work Phone: [phone]) 973-926701-24-2023 History and physical note Author Dr. Banks [facility] March 02, 2022 1:08pm Note Date/Time March 02, 2022 1 2:36[facility] Medical Records Department [address] [place] [address] H&P Exam - Hospitalist 03/02/22 1233 MR#: [id number] Acct: [id number] Name: ABELARDO IVORY Rep #:[id number] : 1950 72 From: Beatris Banks DO PCP: Dr. Ezekiel Carrasco MD Status: REG ER Location: ED HPI - General General Date of Admission: 03/02/22 Date of Service: 03/02/22 Chief Complaint: Shortness of breath HPI Narrative ABELARDO IVORY, is a 72 M who presented to the emergency department [facility] on 03/02/2022 with a chief complaint of [...] 1 and started on ceftriaxone and azithromycin. [facility] Medical History Abdominal aortic aneurysm (AAA) Anemia Arthritis Atherosclerotic heart disease of [place] coronary artery without angina pectoris Bilateral inguinal [...] Arthritis Diabetes Brother Cancer Unsure what kind- "just a lump on his neck" Surgical History (Updated 03/02/22 @ 12:54 by [...] % (Auto) 66.7, Lymph % (Auto) 27.6, [place] % (Auto) 5.1, Eos % (Auto) 0.2, [...] as able AAA with repair -Repair at [facility] [place] in December 2021 -Continue tobacco cessation -Continue [...] no intubation Charges/Coding Visit Charges Inpatient E&M: 00027 Init Hosp L3 03/02/22 1308 <Electronically signed by Beatris Banks DO> Cosigner Signature (if applicable): CC: Dr. Ezekiel Carrasco MD; Dr. Beatris Banks DO~ Signed [facility] Work Phone: [phone]) 852-517601-24-2023 History and physical note Author Dr. Banks [facility] March 02, 2022 1:08pm Note Date/Time March 02, 2022 1 2:36pm [facility] Medical Records Department [address] [place] [address] H&P Exam - Hospitalist 03/02/22 1233 MR#: [id number] Acct: [id number] Name: ABELARDO IVORY Rep #:[id number] : 1950 72 From: Beatris Banks DO PCP: Dr. Ezekiel Carrasco MD Status: ADM IN Location: [facility] [id number]- 1 HPI - General General Date of Admission: 03/02/22 Date of Service: 03/02/22 Chief Complaint: Shortness of breath HPI Narrative ABELARDO IVORY, is a 72 M who presented to the emergency department [facility] on 03/02/2022 with a chief complaint of [...] 1 and started on ceftriaxone and azithromycin. [facility] Medical History Abdominal aortic aneurysm (AAA) Anemia Arthritis Atherosclerotic heart disease of [place] coronary artery without angina pectoris Bilateral inguinal [...] Arthritis Diabetes Brother Cancer Unsure what kind- "just a lump on his neck" Surgical History (Updated 03/02/22 @ 12:54 by [...] % (Auto) 66.7, Lymph % (Auto) 27.6, [place] % (Auto) 5.1, Eos % (Auto) 0.2, [...] Signed: Lebron Briseno MD at 10:38 EST Reading Location ID and State: [facility] / [place] , Service support , Assessment & Plan Assessment/Plan (1) Acute [...] as able AAA with repair -Repair at [facility] [place] in December 2021 -Continue tobacco cessation -Continue [...] no intubation Charges/Coding Visit Charges Inpatient E&M: 04558 Init Hosp L3 03/02/22 1308 <Electronically signed by Beatris Banks DO> Cosigner Signature (if applicable): CC: Dr. Ezekiel Carrasco MD; Dr. Beatris Banks DO~ Signed [facility] Work Phone: [phone]) [phone] Garland [facility] March 02, 2022 3:36pm Note Date/Time March 02, 2022 1 0:07am [facility] Medical Records Department [address] [place] [address] Emergency Department Summary 03/02/22 MR#: [id number] Acct: [id number] Name: ABELARDO IVORY Rep #:[id number] : [...] (AAA) Anemia Arthritis Atherosclerotic heart disease of [place] coronary artery without angina pectoris Bilateral inguinal [...] Arthritis Diabetes Brother Cancer Unsure what kind- "just a lump on his neck" Surgical History H/O coronary artery bypass surgery [...] % (Auto) 66.7 Lymph % (Auto) 27.6 [place] % (Auto) 5.1 Eos % (Auto) 0.2 [...] Signed: Lebron Briseno MD at 10:38 EST Reading Location ID and State: [address] [place] [address] , Service support , Chest x-ray, portable, single view interpreted [...] rate of 75 no acute signs of NH or ischemia. Discharge Plan Triage Chief Complaint: [...] Provider] - Disposition Disposition: Acute Care Hospital [facility] What to do if you have Problems For any increased pain, shortness of breath, bleeding, nausea or vomiting, chestpain, or any unexpected problems, contact your Primary Care Provider. Call [facility] ([phone]) or report to the closest Emergency Room. Call 911 if necessary. 03/02/22 1536 <Electronically signed by Nhan Garland MD> Cosigner Signature (if applicable): CC: Dr. Ezekiel Carrasco MD ~ Signed [facility] Work Phone: 1(859) 627-920812-20-2022 Miscellaneous Notes* Telephone Encounter - Oxana Martines [...] 3 weeks now. Call back number is [phone]. Physician: Holly Byrnes MD [facility] Miscellaneous Notes* Telephone Encounter - Yris Pineda - 01/01/2022 3:02 PM EST Sent Patient out a reminder letter for his appointment in Jan and call no answer left a VM. PSS-MP documented [facility] [place] History of Present illness Narrative* Venita Shah APRN.CNP - 12/28/2021 3:24 PM EST Images from the original note were not included. Critical Care Transport Note Patient Name: Abelardo Ivory Service Date: 12/28/21 Referring Physician: Vilma Referring Facility: [facility] Accepting Physician: Fitz Accepting Facility: [facility] SUBJECTIVE/CHIEF COMPLAINT: abdominal pain REASON FOR TRANSPORT: [...] carotid stenosis, and tremor. He presented to [facility] today for evaluation of acute lower abdominal [...] managing the patient requested transfer to the [facility] for tertiary and/or quaternary services unavailable at the referring facility. The physician managing the patient requested the [facility] Critical [facility] Transport Team transport and treat the patient for the purpose of tertiary care, evaluation, and management of his ruptured aortic aneurysm condition(s). Air medical transport was requested to reduce the atm-tx-ockeeweccrre, 22 minutes by air vs. approximately 75 [...] SaO2 > 93% - Expedite transport to [facility] for further workup and care The transport was completed without significant incident or change in the patient's status. The patient was transported to the the [facility] by Rotor (Helicopter) for tertiary and/or quaternary evaluation and management of his Emergent Medical and Surgical condition(s). Upon arrival to the receiving facility, a kkgt-kr-muwr report was given to bedside nursing staff [id number] and bedside medical team . Patient care [...] AAA and the Cardiovascular impairment, Respiratory impairment, MOVEMENT THERAPIST impairment, Shock, Cardiac Arrest, and Severe metabolic abnormality which the patient had and/or had a high probability of suddenly developing. SIGNATURE: Venita Shah APRN.CNP Acute Care Nurse Practitioner [facility] Critical Care Transport Team documented in this [facility] [place]-20[facility] Procedure note* Venita Shah APRN.CNP - 12/28/2021 [...] PLACEMENT: Sterile PRIMARY PROCEDURALIST: BARRIE De Souza MEAT CARRIER(S): Mariely Liriano RN PROCEDURE NARRATIVE Site Marked: [...] DATE: 12/28/21 documented in this encounter[facility] [place] History of Past illness Narrative* Problem Noted [...] encounter (statuses as of 05/11/2021) [facility] History of Past illness Narrative* Problem Noted [...] encounter (statuses as of 12/28/2021) [facility] History of Past illness Narrative* Problem Noted [...] encounter (statuses as of 01/01/2022) [facility] History of Past illness Narrative* Problem Noted [...] encounter (statuses as of 01/01/2022) [facility] History of Past illness Narrative* Problem Noted [...] encounter (statuses as of 01/26/2022) [facility] History of Past illness Narrative* Problem Noted [...] encounter (statuses as of 02/09/2022) [facility]-06-2020 Evaluation note* Diagnosis Onset Date Resolution Status Abdominal aortic aneurysm (AAA) chronic Essential hypertension chron ic H/O coronary artery bypass surgery February 12, 2019 chronic History of aortic valve replacement February 12, 2019 chronic Hyperlipidemia [facility] Work Phone: 1(766) 875-321001-06-2020 Evaluation note* Diagnosis Onset Date Resolution Status Kidney disease acute Abdominal aortic aneurysm (AAA) chronic Essential hypertension chron ic H/O coronary artery bypass surgery February 12, 2019 chronic History of aortic valve replacement February 12, 2019 chronic Hyperlipidemia [facility] Work Phone: 1(126) 563-863001-06-2020 Evaluation note* Diagnosis Onset Date Resolution Status Kidney disease acute Abdominal aortic aneurysm (AAA) chronic Essential hypertension chron ic H/O coronary artery bypass surgery February 12, 2019 chronic History of aortic valve replacement February 12, 2019 chronic Hyperlipidemia chronic Acute respiratory failure with hypoxia acute Hypoxia acute Pleural effusion acute Pneumonia acute Chronic kidney insufficiency chronic COPD exacerbation [facility] Work Phone: 1(498) 251-740701-06-2020 Evaluation note* Diagnosis Onset Date Resolution Status Kidney disease acute Abdominal aortic aneurysm (AAA) chronic Essential hypertension chron ic H/O coronary artery bypass surgery February 12, 2019 chronic History of aortic valve replacement February 12, 2019 chronic Hyperlipidemia chronic Hypoxia acute Pneumonia acute Acute respiratory failure with hypoxia resolved COPD exacerbation resolved [facility] Work Phone: 1(760) 700-681801-06-2020 Evaluation note* Diagnosis Onset Date Resolution Status [...] (AAA) chronic Atherosclerotic heart diseas e of [place] coronary artery without angina pectoris chronic Essential hypertension chron ic History of aortic valve replacement February 12, 2019 chronic Hyperlipidemia chronic Kidney disease [facility] Work Phone: 1(653) 183-144901-06-2020 Evaluation note* Diagnosis Onset Date Resolution Status [...] (AAA) chronic Atherosclerotic heart diseas e of [place] coronary artery without angina pectoris chronic Essential hypertension chron ic History of aortic valve replacement February 12, 2019 chronic Hyperlipidemia chronic Kidney disease chronic Lower extremity edema acute Abdominal aortic aneurysm (AAA) chronic Atherosclerotic heart diseas e of [place] coronary artery without angina pectoris chronic Essential hypertension chron ic History of aortic valve replacement February 12, 2019 chronic Hyperlipidemia chronic Kidney disease chronic Hypoxia acute COPD (chronic obstructive pulmonary disease) chronic Secondary pulmonary arterial hypertension chronic Tobacco dependence chronic Abdominal aortic aneurysm (AAA) chronic [facility] Work Phone: 1(181) 722-917301-06-2020 Evaluation note* Diagnosis Onset Date Resolution Status [...] (AAA) chronic Atherosclerotic heart diseas e of [place] coronary artery without angina pectoris chronic Essential hypertension chron ic History of aortic valve replacement February 12, 2019 chronic Hyperlipidemia chronic Kidney disease chronic Lower extremity edema acute Abdominal aortic aneurysm (AAA) chronic Atherosclerotic heart diseas e of [place] coronary artery without angina pectoris chronic Essential hypertension chron ic History of aortic valve replacement February 12, 2019 chronic Hyperlipidemia chronic Kidney disease chronic Hypoxia acute COPD (chronic obstructive pulmonary disease) chronic Secondary pulmonary arterial hypertension chronic Tobacco dependence chronic Abdominal aortic aneurysm (AAA) chronic 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 Padmini Carrasco MD Status :[facility] Location: [place] [address] HPI Consult Data Date of Consult: 11/07/24 [...] will be starting chemo treatments soon at [facility]. Patient has a history of aortic stenosis diagnosed in 2012. Patient underwent coronary angiography which revealed 80% stenosis in the RCA and patient was referred to [facility] for aortic valve and RCA revascularization. Patient underwent AVR plus CABG x 1 (Perimount #23, SVG to RCA at [facility] on 02/12/2019). Patient did well postoperatively with echocardiogram demonstrating preserved ejection fraction, normally functioning prosthetic aortic valve with peak gradient 25 mmHg and mean gradient of 13 mmHg. Patient was diagnosed with an abdominal aortic aneurysm and was sent to [place] for an opinion. It was noted to [...] of aneurysm leak. Patient was transferred to [facility] facility and on 12/28/2021 patient proceeded with [...] in his rectosigmoid colon in his duodenum. 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..] (Auto) 76.0 H, Lymph % (Auto)11.8 L, [place] % (Auto) 9.8, Eos % (Auto) 1.1, [...] Clarity Cloudy, Urine pH 6.0, Ur Specific [place] 1.015, Urine Protein 100 H, Urine Glucose [...] with eccentric noncalcified plaque/mural thrombus. Reading Location: [facility] Chest X-Ray 11/07/24 18:53 IMPRESSION: No focal consolidation. Extensive pulmonary emphysema. Reading Location: [facility] Assessment & Plan Assessment/Plan (1) GI bleed: [...] of 3. Charges/Coding Visit Charges Inpatient E&M: 91257 Init Hosp L3 11/07/242007 <Electronically signed by Kamleshdianne Floyd DO> Cosigner Signature (if applicable): CC: Dr. Padmini Carrasco MD; Kamlesh Friend, DO~ Signed [facility] Work Phone: Consult note Author Raymond Anthony [facility] Note Date/Time November 07, 2024 8: 14pm [facility] Medical Records Department [address] [place] [address] Pre-Anesthesia Evaluation 11/07/242002 MR#: [id number] Acct: [id number] Name: ABELARDO IVORY Rep #:[id number] : 1950 74 From: Raymond Spann PCP: Dr. Padmini Carrasco MD Status :REG SDC Y Race: C Location: [place] [address] ASA Classification* ASA Classification ASA Classification: 4 [...] Procedure(s): Colonoscopy Anesthesia History Anesthesia History - interlocking installer: Anesthesia History - interlocking installer Hx Hospitalization No 06/15/24 08:41 Any Problems [...] take am of surgery PONV PONV - interlocking installer: PONV - interlocking installer Female HX of Motion Sickness HX of N/V After Surgery Non-Smoker Duration of Surgery greater than 60 minutes Number of Risk Factors PONV Score Height & Weight Height & Weight: Anesthesia: Height & Weight Height 5 ft 6 in 11/07/24 15:32 Weight: 64.4 kg 11/07/24 18:05 Body Mass Index (BMI) 22.8 11/07/24 18:05 Respiratory Assessment Respiratory Assessment - interlocking installer: Respiratory Tract Infection Hx - interlocking installer Hx Respiratory Tract Infection No 06/15/24 08:41 STOP Sleep Apnea STOP Sleep Apnea - interlocking installer: STOP Sleep Apnea - interlocking installer Hx Hypertension Yes: CONTROLLED ON MED 06/15/24 [...] Tobacco Use History Tobacco Use History - interlocking installer: Tobacco Use History - interlocking installer Tobacco Use Smoking Status Current every day smoker 11/07/24 17:35 Hx Tobacco Use Yes 06/27/24 15:48 Years Smoking Packs Smoked per Day Smoking Cessation Date was within the last 15 years Hx Smoking Cessation Date Hx Smoking Cessation Counseling Hematologic Medial History Hematologic Hx - interlocking installer: Hematologic Medical Hx - conflicts analyst Hx of Blood Transfusion Hx of Transfusion in last 3 Months Date of Last Transfusion (if within last 3 months) Ever experience any problems with transfusion(s)? Specify any problems Hx of Preganancy in last 3 Months Nurse Filling Out Transfusion & Questions: Date: Time: Patient unable to answer at this time (ie. confused, unrespo /Reproduction History /Reproductive History - interlocking installer: /Reproductive Hx- interlocking installer Hx Now Gestational Age (in weeks): EDC: Hx Hx Para Hx Section SAB PFSH Medical History Bladder cancer Wears dentures Wears glasses Bruising Easy bruising High cholesterol Smoker Shortness of breath on exertion History of echocardiogram Cardiology follow-up encounter Stage 3b chronic kidney disease (CKD) Thrombocytopenia Chronic kidney insufficiency Pleural effusion Secondary pulmonary arterial hypertension Atherosclerotic heart disease of [place] coronary artery without angina pectoris Intention tremor [...] Arthritis Diabetes Brother Cancer Unsure what kind- "just a lump on his neck" Surgical History Neoplasm of bladder Hx of [...] MD Cosigner Signature: Date CC: ~ Signed [facility] Work Phone: Consult note Author Raymond Anthony [facility] Note Date/Time November 07, 2024 10 :02pm [facility] Medical Records Department [address] [place] [address] Anesthesia Postop Eval I 11/07/242199 MR#: [id number] Acct: [id number] Name: ABELARDO IVORY Rep #:[id number] : 1950 74 From: Raymond Spann PCP: Dr. Padmini Carracso MD Status :REG SD Y Race: C Location: ICU ICU - Anesthesia: Postop Eval I Current Vital Signs [...] MD Cosigner Signature: Date CC: ~ Signed [facility] Work Phone: Consult note Author Raymond Anthony [facility] Note Date/Time November 07, 2024 11 :10pm [facility] Medical Records Department [address] [facility] [place] [address] Anesthesia Postop Eval II 11/07/242202 MR#: [id number] Acct: [id number] Name: ABELARDO IVORY Rep #:[id number] : 1950 74 From: Raymond Spann PCP: Dr. Padmini Carrasco MD Status :REG [facility] Y Race: C Location: ICU ICU03 -1 Anesthesia Postop Eval I Sum Postop Eval [...] MD Cosigner Signature: Date CC: ~ Signed [facility] Work Phone: Consult note Author James Glez [facility] Note Date/Time November 21, 2024 1 :25pm [facility] Medical Records Department [address] [place] [address] Counseling Note - Pharmacy 11/21/24 1324 MR#: [id number] Acct: [id number] Name: ALEJANDRAABELARDO SWEENEY Rep #:[id number] : 1950 74 From: James maynard PCP: Dr. Padmini Carrasco MD Status :ADM IN Location: [place] [address] Pharmacy [facility] Counsel[facility] Pharm[facility] Services has performed discharge medication counseling for this patient. The patient was counseled on the following discharge medications and changes in medications for homegoing review. - Pantoprazole 40 mg tablet, Sucralfate 1g tablet The Reason for Use, instructions for use, and potential side effects were reviewed for all new medications. The patient's questions regarding all of their medications were answered. The patient was able to verbally demonstrate an understanding of their dischargemedications. Medications at Discharge Home Medications aspirin 81 mg tablet,delayed release 81 mg PO DAILY heart health 03/02/22 rosuvastatin 5 mg tablet (Crestor) 5 mg PO DAILY cholesterol 03/02/22 amlodipine 5 mg tablet 5 mg PO DAILY #30 tabs 02/28/23 cholecalciferol (vitamin D3) 25 mcg (1,000 unit) capsule 25 mcg PO DAILY supplement 10/27/23 metoprolol tartrate 25 mg tablet 12.5 mg (1/2 x 25 mg) PO BID #90 tabs 03/22/24 acetaminophen 500 mg capsule 1,000 mg PO Q6H PRN pain 06/13/24 OXYGEN - Supplemental ([facility] INFORMATIONAL USE ONLY) 11/19/24 pantoprazole 40 mg tablet,delayed release 40 mg PO BID #60 tabs 11/21/24 sucralfate 1 gram tablet 1 g PO 0700,1100,1600 #90 tabs 11/21/24 11/21/24 1325 <Electronically signed by James Liao> Date _ James Jackson Signature (if applicable): Date CC: ~ Signed [facility] Work Phone: Consult note Author Jose carrillo [facility] Note Date/Time November 21, 2024 2 :58pm [facility] Medical Records Department [address] [place] [address] Pre-Anesthesia Evaluation 11/19/2410 MR#: [id number] Acct: [id number] Name: ABELARDO IVORY Rep #:[id number] : 1950 74 From: Jose Cisneros MD PCP: Dr. Padmini Carrasco MD Status :ADM IN Y Race: C Location: [place] [address] 0-1 ASA Classification* ASA Classification ASA Classification: 3 Assessment & Plan Anesthesia* Anesthesia Assessment Anesthesia [...] risk assessments. Anesthesia Type Anesthesia Type: MAC Anesthesia Focused Assessment* Temperature: 97.8 F Pulse Rate: 75 Blood Pressure: 121/57 Respiratory Rate: 12 Pulse Ox: 96 Oxygen Flow Rate (L/min): 3 Airway Assessment Mouth opens: >3 cm Mallampati Score: II Labs Anesthesia Preop lab: CBC WBC, (4.4-11.0) 6.0 K/mm3 Today, 05:13 RBC, (4.6-6.2) 2.34 M/mm3 L Today, 05:13 Hgb, (13.0-16.5) 7.1 g/dL L Today, 05:13 Hct, (40-54) 21.9 % L Today, 05:13 Plt Count, (150-450) 117 K/mm3 L Today, 05:13 CHEMISTRY Potassium, (3.3-5.1) 4.8 mmol/L Today, 05:13 Sodium, (133-145) 139 mmol/L Today, 05:13 Magnesium, (1.5-2.2) 2.1 mg/dL 11/07/24, 17:57 Phosphorus, (2.7-4.5) 4.5 mg/dL 11/07/24, 17:57 BUN, (4-19) 63 mg/dL H Today, 05:13 Creatinine, (0.70-1.20) 1.59 mg/dL H Today, 05:13 Glucose, (70-99) 111 mg/dL H Today, 05:13 TSH, (0.300-4.200) 3.680 uIU/mL 05/10/24, 15:16 COAG PT, (11.7-14.9) 13.8 SECONDS 11/18/24, 01:30 Pre-Assessment Diagnosis/Proposed Procedure Planned Operative Procedure(s): EGD Anesthesia History Anesthesia History - interlocking installer: Anesthesia History - interlocking installer Hx Hospitalization No 06/15/24 08:41 Any Problems With Anesthesia No 06/15/24 08:41 Cholinesterase deficiency No 06/15/24 08:41 You/Your Family Experience No 06/15/24 08:41 fever (hyperthermia) with Relationship Recent Exposure to Contagious No 06/27/24 06:57 Disease Does patient have nerve No 06/15/24 08:41 stimulator Patient instructed to have device shut off --Does patient have Pacemaker No 11/19/24 08:59 or ICD? When Was Last Pacemaker Check QUESTION #4 FULL TEXT: You/Your Family Experience fever (hyperthermia) with Anesthesia Last Oral Intake Last Oral intake: Last Oral Intake NPO since 00:00 11/19/24 08:59 Meds taken in AM with sips of water? Meds patient instructed to take am of surgery PONV PONV - interlocking installer: PONV - interlocking installer Female HX of Motion Sickness HX of N/V After Surgery Non-Smoker Duration of Surgery greater than 60 minutes Number of Risk Factors PONV Score Height & Weight Height & Weight: Anesthesia: Height & Weight Height 5 ft 6 in 11/19/24 08:59 Weight: 63 kg 11/19/24 08:59 Body Mass Index (BMI) 22.4 11/19/24 08:59 Respiratory Assessment Respiratory Assessment - interlocking installer: Respiratory Tract Infection Hx - interlocking installer Hx Respiratory Tract Infection No 06/15/24 08:41 STOP Sleep Apnea STOP Sleep Apnea - interlocking installer: STOP Sleep Apnea - interlocking installer Hx Hypertension Yes 11/18/24 18:22 Hx Sleep Apnea No 11/18/24 18:22 CPAP BIPAP Do you snore loudly (louder No 11/18/24 18:22 than talking or can be heard Do you often feel tired/ No 11/18/24 18:22 fatigued/ sleepy during daytime? Has anyone observed you stop No 11/18/24 18:22 breathing during sleep? STOP Results Negative 11/18/24 18:22 QUESTION #5 FULL TEXT : Do you snore loudly (louder than talking or can be heard through closed doors)? Tobacco Use History Tobacco Use History - interlocking installer: Tobacco Use History - interlocking installer Tobacco Use Smoking Status Former smoker 11/18/24 20:32 Hx Tobacco Use Yes 11/18/24 18:22 Years Smoking Packs Smoked per Day Smoking Cessation Date was Yes - quit smoking within 15 11/18/24 18:22 within the last 15 years years Hx Smoking Cessation Date Hx Smoking Cessation Counseling Hematologic Medial History Hematologic Hx - interlocking installer: Hematologic Medical Hx - conflicts analyst Hx of Blood Transfusion Yes 11/18/24 18:22 Hx of Transfusion in last 3 Yes 11/18/24 18:22 Months Date of Last Transfusion (if 11/18/24 11/18/24 18:22 within last 3 months) Ever experience any problems No 11/18/24 18:22 with transfusion(s)? Specify any problems Hx of Preganancy in last 3 N/A 11/18/24 18:22 Months Nurse Filling Out Transfusion NBILANCIN 11/18/24 18:22 & Questions: Date: 11/18/24 11/18/24 18:22 Time: 18:11/18/24 18:22 Patient unable to answer at this time (ie. confused, unrespo /Reproduction History /Reproductive History - interlocking installer: /Reproductive Hx- interlocking installer Hx Now Gestational Age (in weeks): EDC: Hx Hx Para Hx Section SAB Active Medications Active Medications: Current Medications Generic Name Dose Route Start Last Admin Trade Name Freq PRN Reason Stop Dose Admin Acetaminophen 650 mg 11/18/24 18:29 Acetaminophen 325 Mg Tablet PO Q6H PRN PRN Pain 1-10 Or Fever>100.7 Albuterol/Ipratropium 3 ml 11/18/24 18:45 11/19/24 06:50 Ipratropium/Albuterol Sulfate 3 Ml Ampul.Neb INHALATION 3 ml Q6HWA.RT YARY Administration Atorvastatin Calcium 10 mg 11/18/24 22:00 11/18/24 22:01 Atorvastatin Calcium 10 Mg Tablet PO 10 mg QHS YARY Administration Budesonide 0.5 mg 11/18/24 18:45 11/19/24 06:53 Budesonide Respules 0.5 Mg/2 Ml Ampul.Neb. INHALATION 0.5 mg Q12H.RT YARY Administration Cholecalciferol 25 mcg 11/19/24 10:00 11/19/24 08:23 Cholecalciferol (Vit D3) 25 Mcg Tablet (1,000 Units) PO 25 mcg DAILY YARY Administration Pantoprazole Sodium 80 mg/ 100 mls @ 10 mls/hr 11/18/24 02:07 11/18/24 23:21 Sodium Chloride CONT INF 10 mls/hr Q10H YARY Administration Sodium Chloride 250 mls @ 15 mls/hr 11/18/24 18:28 IV .[id number] PRN Saline Flush Sodium Chloride 250 mls @ 15 mls/hr 11/18/24 18:28 IV .[id number] PRN Additional IVPB Infusion Lactated Ringer's 1,000 mls @ 15 mls/hr 11/19/24 09:00 IV .Q48H YARY Melatonin 3 mg 11/18/24 18:29 Melatonin 3 Mg Tablet PO QHS PRN PRN INSOMNIA Ondansetron HCl 4 mg 11/18/24 18:29 Ondansetron 4 Mg/2 Ml Vial IV Q8H PRN PRN NAUSEA/VOMITING Sodium Chloride 10 - 40 ml 11/18/24 18:28 0.9% Saline Lock 10 Ml Syringe IV UD PRN SALINE FLUSH PFSH Medical History Bladder cancer Wears dentures Wears glasses Bruising Easy bruising High cholesterol Smoker Shortness of breath on exertion History of echocardiogram Cardiology follow-up encounter Stage 3b chronic kidney disease (CKD) Thrombocytopenia Chronic kidney insufficiency Pleural effusion Secondary pulmonary arterial hypertension Atherosclerotic heart disease of [place] coronary artery without angina pectoris Intention tremor Carotid stenosis, bilateral Hyperlipidemia Nonrheumatic aortic (valve) stenosis Essential hypertension Tobacco dependence Bilateral inguinal hernia Left carotid bruit Abdominal aortic aneurysm (AAA) Anemia Subcutaneous mass of back PUD (peptic ulcer disease) Cough Arthritis Home Medications ?Medication ?Instructions ?Recorded ?Last Taken ?Type aspirin 81 mg tablet,delayed 81 mg PO DAILY heart heal th 03/02/22 01/12/24 History release Held on 11/18/24. Instructions: Ordered rosuvastatin 5 mg tablet (Crestor) 5 mg PO DAILY uzma sterol 03/02/22 03/02/22 History amlodipine 5 mg tablet 5 mg PO DAILY #30 tabs 02/28 Unknown Rx cholecalciferol (vitamin D3) 25 25 mcg PO DAILY supple ment 10/27/23 Unknown History mcg (1,000 unit) capsule metoprolol tartrate 25 mg tablet 12.5 mg (1/2 x 25 mg) PO BID #90 03/22/24 06/27/24 05:30 Rx tabs acetaminophen 500 mg capsule 1,000 mg PO Q6H PRN pain 06/13/24 Unknown History OXYGEN - Supplemental ([facility] 11/19/24 Unknown History INFORMATIONAL USE ONLY) Allergy/AdvReac Type Severity Reaction Status Date / Time No Known Allergies Allergy Verified 11/07/24 15:31 Family History Sister Asthma Mother Arthritis Diabetes Brother Cancer Unsure what kind- "just a lump on his neck" Surgical History Neoplasm of bladder Hx of inguinal hernia repair S/P inguinal hernia repair History of cardiac catheterization S/P AAA repair 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) History of left heart catheterization (11/27/18) History of aortic valve replacement (02/12/19) Social History household members: none Smoking Status: Former smoker quit status: has quit before alcohol intake: never substance use type: does not use caffeine: Yes Type: coffee Number of servings: 3 what type of physical activity do you participate in: other frequency: 3-4 times per week seatbelt use: always Review of Systems (Anesthesia) ROS Narrative System reviewed and no additional complaints, except as documented. 11/19/24 0910 <Electronically signed by Jose Cisneros MD > Date _ Jose Cisneros MD Cosigner Signature: Date CC: ~ Signed [facility] Work Phone: Consult note Author Kamlesh Friend [facility] Note Date/Time November 19, 2024 1 0:16am [facility] Medical Records Department [address] [place] [address] Consultation - GI 11/19/24 1013 MR#: [id number] Acct: [id number] Name: ABELARDO IVORY Rep #:[id number] : 1950 74 From: Kamlesh Floyd DO PCP: Dr. Padmini Carrasco MD Status :ADM IN Location: [place] [address] HPI Consult Data Date of Consult: 11/19/24 HPI Narrative Reason for Consultation: GI bleed HPI Narrative: ABELARDO IVORY, is a 74 M who presents to the emergency room with multiple episodes of abdominal pain followed by lower GI bleeding. He underwent a transurethral bladder resection on 06/27/[address] Winston for concerns of a bladder mass. He states that he will be starting chemo treatments soon at [facility]. Patient has a history of aortic stenosis diagnosed in 2012. Patient underwent coronary angiography which revealed 80% stenosis in the RCA and patient was referred to [facility] for aortic valve and RCA revascularization. Patient underwent AVR plus CABG x 1 (Perimount #23, SVG to RCA at [facility] on 02/12/2019). Patient did well postoperatively with echocardiogram demonstrating preserved ejection fraction, normally functioning prosthetic aortic valve with peak gradient 25 mmHg and mean gradient of 13 mmHg. Patient was diagnosed with an abdominal aortic aneurysm and was sent to [place] for an opinion. It was noted to measure 5.1 cm on his abdominal pelvic CT scan. He did suggestto the surgeon that he was not currently interested in aortic surgery. He was seen in the emergency department 12/28/2021 for abdominal pain in which his CT scan demonstrated 5 cm infrarenal abdominal aortic aneurysm with adjacent retroperitoneal fluid suggesting of aneurysm leak. Patient was to be transferred to [facility] facility and on 12/28/2021 patient proceeded with thoracoretroperitoneal ruptured juxtarenal abdominal aortic aneurysm repair. Workup at that time revealed the cause of the GI bleed was a actively bleedingduodenal ulcer. He had the ulcer cauterized when he underwent EGD and colonoscopy and then was transferred to [facility] as there was concern he would need further intervention that was not available to our hospital. Patient and family state that at [facility] they simply watched him for 3 days and there was no return of bleeding so he was discharged home. I was called back to see him due to a decreasing hemoglobin requiring blood transfusions again. [facility] Medical History Bladder cancer Wears dentures Wears glasses Bruising Easy bruising High cholesterol Smoker Shortness of breath on exertion History of echocardiogram Cardiology follow-up encounter Stage 3b chronic kidney disease (CKD) Thrombocytopenia Chronic kidney insufficiency Pleural effusion Secondary pulmonary arterial hypertension Atherosclerotic heart disease of [place] coronary artery without angina pectoris Intention tremor Carotid stenosis, bilateral Hyperlipidemia Nonrheumatic aortic (valve) stenosis Essential hypertension Tobacco dependence Bilateral inguinal hernia Left carotid bruit Abdominal aortic aneurysm (AAA) Anemia Subcutaneous mass of back PUD (peptic ulcer disease) Cough Arthritis Home Medications ?Medication ?Instructions ?Recorded ?Last Taken ?Type aspirin 81 mg tablet,delayed 81 mg PO DAILY heart heal th 03/02/22 01/12/24 History release Held on 11/18/24. Instructions: MD Ordered rosuvastatin 5 mg tablet (Crestor) 5 mg PO DAILY uzma sterol 03/02/22 03/02/22 History amlodipine 5 mg tablet 5 mg PO DAILY #30 tabs 02/28 Unknown Rx cholecalciferol (vitamin D3) 25 25 mcg PO DAILY supple ment 10/27/23 Unknown History mcg (1,000 unit) capsule metoprolol tartrate 25 mg tablet 12.5 mg (1/2 x 25 mg) PO BID #90 03/22/24 06/27/24 05:30 Rx tabs acetaminophen 500 mg capsule 1,000 mg PO Q6H PRN pain 06/13/24 Unknown History OXYGEN - Supplemental ([facility] 11/19/24 Unknown History INFORMATIONAL USE ONLY) Allergy/AdvReac Type Severity Reaction Status Date / Time No Known Allergies Allergy Verified 11/07/24 15:31 Family History Sister Asthma Mother Arthritis Diabetes Brother Cancer Unsure what kind- "just a lump on his neck" Surgical History Neoplasm of bladder Hx of inguinal hernia repair S/P inguinal hernia repair History of cardiac catheterization S/P AAA repair 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) History of left heart catheterization (11/27/18) History of aortic valve replacement (02/12/19) Social History household members: none Smoking Status: Former smoker quit status: has [...] alert, oriented x3, no apparent distress and average body habitus Constitutional Narrative: no acute distress. General Appearance: cooperative and comfortable HEENT normocephalic, head/scalp atraumatic, hearing grossly normal bilaterally, nasal mucous membranes and turbinates normal and moist oral mucous membranes Eyes PERRL, EOMs intact bilaterally and conjunctivae normal Neck full ROM Chest inspection of chest normal Resp normal respiratory effort, normal air movement, no use of accessory muscles and clear to auscultation bilaterally Cardio regular rate, regular rhythm, no murmurs and peripheral pulses 2+ throughout GI normal to inspection, nondistended, normoactive bowel sounds, soft to palpation,non-tender and non-distended Back/Spine normal ROM Extremity normal to inspection, full ROM and no pedal edema Skin no rashes or lesions noted Psych mental status grossly normal Lab / Micro Data 11/19/24 05:13 11/19/24 05:13 Labs: Laboratory Results - last 24 hr 11/18/24 02:14: Crossmatch See Detail 11/18/24 11:17: Lactic Acid < 1.0 11/18/24 16:50: WBC 8.2, RBC 2.81 L, Hgb 8.7 L, Hct 26.3 L, MCV 93.6 D, MCH 31.0, MCHC 33.1 D, RDW Std Deviation 53.8 H, RDW Coeff of Manjit 16.1 H, Plt [id number] L, MPV 8.8, Immature Gran % (Auto) 0.600, Neut % (Auto) 77.4 H, Lymph % (Auto) 11.4 L, Hawkins % (Auto) 9.4, Eos % (Auto) 0.7, Baso % (Auto) 0.5, Absolute Neuts (auto) 6.3, Absolute Lymphs (auto) 0.93, Nucleated RBC % 0, Sodium 139, Potassium 4.9, Chloride 109 H, Carbon Dioxide 22.1, Anion Gap 8, BUN 62 H, Creatinine 1.60 H, Estim Creat Clear Calc 36.55 L, Est GFR (MDRD) Non-Af 45 L, BUN/Creatinine Ratio 38.9 H, Glucose 112 H, Calcium 8.0 11/19/24 05:13: WBC 6.0, RBC 2.34 L, Hgb 7.1 L, Hct 21.9 L, MCV 93.6, MCH 30.3, MCHC 32.4, RDW Std Deviation 53.4 H, RDW Coeff of Manjit 16.0 H, Plt Count 117 L, MPV 9.0, Sodium 139, Potassium 4.8, Chloride 110 H, Carbon Dioxide 21.7, Anion Gap 8, BUN 63 H, Creatinine 1.59 H, Estim Creat Clear Calc 36.32 L, Est GFR (MDRD) Non-Af 45 L, BUN/Creatinine Ratio 39.7 H, Glucose 111 H, Calcium 8.0 Assessment & Plan Assessment/Plan (1) GI bleed: PLAN: Differential diagnosis includes recurrent GI bleeding or duodenal ulcer. He will undergo upper endoscopy. He was explained alternatives, risk and benefits could not withstand bleeding, infection, sepsis, perforation, need for emergent urgent . He will have an ASA of 3. Charges/Coding Visit Charges Inpatient E&M: 33818 Init Hosp L3 11/19/24 1016 <Electronically signed by Kamlesh Friend DO> Cosigner Signature (if applicable): CC: Dr. Padmini Carrasco MD~ Signed [facility] Work Phone: Consult note Author Alon Hastings [facility] Note Date/Time November 19, 2024 1 0:42am [facility] Medical Records Department [address] [place] [address] Anesthesia Postop Eval I 11/19/24 1041 MR#: [id number] Acct: [id number] Name: ABELARDO IVORY Rep #:[id number] : 1950 74 From: Alon Hastings PCP: Dr. Padmini Carrasco MD Status :ADM IN Y Race: C Location: [place] [address] 0-1 Anesthesia: Postop Eval I Current Vital Signs Temperature: 98.6 F Pulse Rate: 72 Blood Pressure: 96/59 Respiratory Rate: 16 Pulse Ox: 100 Oxygen Delivery Method: Room Air Assessment Airway patent: Yes Spontaneous unlabored respirations: Yes Mental status: Asleep nausea: No Vomiting: No Anesthesia Complication: No Fluid Hydration Crystalloid volume administer (ml): 300 Total IV fluid infused: 300 Progress Note Anesthesia document: Postop Eval 1 completed: Yes 11/19/24 1042 <Electronically signed by Alon Hastings > Date _ Alon Jackson Signature: Date CC: ~ Signed [facility] Work Phone: Consult note Author Jose carrillo [facility] Note Date/Time November 21, 2024 2 :58pm [facility] Medical Records Department [address] [place] [address] Anesthesia Postop Eval II 11/19/24 1100 MR#: [id number] Acct: [id number] Name: ABELARDO IVORY Rep #:[id number] : 1950 74 From: Jose Cisneros MD PCP: Dr. Padmini Carrasco MD Status :ADM IN Y Race: C Location: [place] [address] 0-1 Anesthesia Postop Eval I Sum Postop Eval Completion status Anesthesia document: Postop Eval 1 completed: Yes Anesthesia Postop Eval I Summary Anesthesia Postop Eval I Summary: Anesthesia Postop Eval I: Assessment Summary Airway patent Yes 11/19/24 10:42 [email or web address] Spontaneous unlabored Yes 11/19/24 10:42 [email or web address] respirations Mental status Asleep 11/19/24 10:42 [email or web address] nausea No 11/19/24 10:42 [email or web address] Vomiting No 11/19/24 10:42 [email or web address] Anesthesia Postop Eval I: Fluid Summary Crystalloid volume administer 300 11/19/24 10:42 [email or web address] (ml) Colloids volume administered ( ml) Blood Product volume administered (ml) Total IV fluid infused 300 11/19/24 10:42 [email or web address] Anesthesia Postop Eval I: Summary Notes Anesthesia Complication No 11/19/24 10:42 [email or web address] Anesthesia Complication Comment: Post-operative progress note Anesthesia: Postop Eval II Evaluation Mental status: Awake Pain Level: 0 nausea: No Vomiting: No 11/19/24 1100 <Electronically signed by Jose Cisneros MD > Date _ Jose Cisneros MD Cosigner Signature: Date CC: ~ Signed [facility] Work Phone: Discharge summary Author Suzanne [facility] Note Date/Time November 07, 2024 11 :10pm [facility] Medical Records Department [address] [place] [address] Discharge Summary 11/07/24 2308 MR#: [id number] Acct: [id number] Name: ABELARDO IVORY Rep #:[id number] : 1950 74 From: Suzanne Medley MD PCP: Dr. Padmini Carrasco MD Status :[facility] Location: ICU ICU03-1 Providers Date of Admission: 11/07/24 Date of Discharge: 11/07/24 Primary Care Physician: Dr. Padmini Carrasco MD Consultations 11/07/24 21:49 Consult: Gastroenterology Routine Consulting Provider: [facility] Reason for Consult: ABLA, GI bleed, hemorrhagic shock. EMERGENT Consult: Yes MD Notified: Yes Date Notified: 11/07/24 Time Notified: 20:17 Method of Notification: ED Physician Initiated Consult: [employer] / Pulmonary Medicine Routine Consulting Provider: Intensivists/Pulmonary [...] on chemotherapy and possibly [facility], Vavular heart disease status post AVR, CAD status post CABG x 1, CKD stage III unclear subtype per GFR trending, HTN, HLD, Tobacco use, AAA s/p rupture s/p repair who presented to the [facility] ED on 11/07/2024 with significant bright red [...] 62 improving following PRBC with most recent [id number], heart rate 78, BP 03/02/1972, respiratory rate 16, 98% oxygenation, CBC with WC 10.8, hemoglobin initially 9.1 at 1555 with repeat at 1757 noted to be hemoglobin 7.8, platelet 229 with left shift, unremarkable coags, CMP with potassium 5.3 not noted to be hemolyzed, BUN/creatinine 47/2.09, GFR 33, [id number], lactic acid 2.2, hepatic profile not marked [...] was evaluated in the endoscopy suite at [facility] on 11/07/2024 and at the time of [...] and higher level of care with onsite mds manager team should patient decompensate again. Given the need for ongoing medical care, in the interim in the best interest of the patient, will proceed with admission to [facility] ICU following endoscopy and care will be [...] endoscopy to the intensive care unit in [facility] was recontacted and accepted patient to their ICU. The mds manager given situation with profuse bleeding during endoscopy noted ongoing although vital signs had stabilized felt patient's safest best interest for immediate air flight to be set up by [facility]. Once airflight was set up and arrive patient was transitioned from [facility] intensive unit care to the [facility] Flight team. Weight / BMI Weight [...] (Auto) 76.0 H, Lymph % (Auto)11.8 L, Hawkins % (Auto) 9.8, Eos % (Auto) 1.1, [...] Clarity Cloudy, Urine pH 6.0, Ur Specific [place] 1.015, Urine Protein 100 H, Urine Glucose [...] (Auto) 80.9 H, Lymph % (Auto)9.2 L, Hawkins % (Auto) 8.1, Eos % (Auto) 0.4, [...] with eccentric noncalcified plaque/mural thrombus. Reading Location: [id number] Chest X-Ray 11/07/24 18:53 IMPRESSION: No focal consolidation. Extensive pulmonary emphysema. Reading Location: [id number] D/C Instructions DC O2, CPAP, BIPAP Needs [...] Floyd; Summer Grande; Oxana Camarillo; Minda Foreman; Chung Armstrong; Ritchie Juarez; Noe Suarez; Bernardo Zuñiga; Jatinder Mobley; Howie Araujo; Say Abraham; Namrata Little; Prakash Carr; Bubba Garcia; Jeffery House; Olya Meneses; Geetha Moran; Alexandrea Yap; Chris Jacobson; Alec Delacruz; Andrei Paulson; Ruby,Juan M; Ricardo Juarez; Dian Gilbert; Liam Busch; Bowen Barrett; Dianelys Simon; Mckinley Griffin Instructions Print Language: Malian Discharge Orders/Prescriptions Prescriptions: No Action amlodipine 5 [...] Up: Padmini Carrasco MD [Primary Care Provider, [facility]] Disposition Disposition (needs filled in before D/C Order can be placed): Home, Self Care Charges/Coding Multi Select Codes Visit Charges Observation E&M Codin Observ/hosp same date L3 (Discharged via air flight to [facility] to their ICU, admitted same day to stabilize until tertiary acceptance.) 11/07/24 9583 <Electronically signed by Suzanne Medley MD> Cosigner Signature (if applicable): CC: Dr. Suzanne Medley MD; Dr. Padmini Carrasco MD~ Signed [facility] Work Phone: Discharge summary Author Pradip [facility]ast[facility] Note Date/Time November 27, 2024 3 :02pm [facility] Medical Records Department [address] [place] [address] Discharge Summary 11/23/24 1239 MR#: [id number] Acct: [id number] Name: ABELARDO IVORY Rep #:[id number] : 1950 74 From: Pradip Pichardo DO PCP: Dr. Padmini Carrasco MD Status :DIS IN Location: [facility] [id number] Providers Date of Admission: 11/18/24 Date of Discharge: 11/21/24 Primary Care Physician: Dr. Padmini Carrasco MD Consultations 11/18/24 18:29 Consult: Gastroenterology Routine Consulting Provider: [facility] Reason for Consult: recurrent upper GIB EMERGENT Consult: No MD Notified: Yes Date Notified: 11/18/24 Time Notified: 17:32 Method of Notification: ED Physician Initiated Reason For Visit: RECURRENT UPPER GI BLEED W/ABLA Diagnosis Discharge Diagnosis (1) Duodenal ulcer: Status: Acute Code(s): K26.9 - Duodenal ulcer, unspecified as acute or chronic, without hemorrhage or perforation Plan 1. Acute upper GI hemorrhage from bleeding duodenal ulcer-CBC will be monitored, patient will remain on Carafate and Protonix #2 acute blood loss anemia secondary to #1 requiring blood transfusion-CBC will be monitored, patient will receive 2 units of packed red blood cells today #3 chronic obstructive pulmonary disease-patient will remain on aerosol treatments #4 hypertension-patient's amlodipine is being held at this time #5 hyperlipidemia-patient is on a statin Total clinical time spent by myself addressing the patient's medical issues, reviewing all of his data, and collaborating with patient's care team: 35 minutes Medications at Discharge Home Medications aspirin 81 mg tablet,delayed release 81 mg PO DAILY heart health 03/02/22 rosuvastatin 5 mg tablet (Crestor) 5 mg PO DAILY cholesterol 03/02/22 amlodipine 5 mg tablet 5 mg PO DAILY #30 tabs 02/28/23 cholecalciferol (vitamin D3) 25 mcg (1,000 unit) capsule 25 mcg PO DAILY supplement 10/27/23 metoprolol tartrate 25 mg tablet 12.5 mg (1/2 x 25 mg) PO BID #90 tabs 03/22/24 acetaminophen 500 mg capsule 1,000 mg PO Q6H PRN pain 06/13/24 OXYGEN - Supplemental ([facility] INFORMATIONAL USE ONLY) 11/19/24 albuterol sulfate 2.5 mg/3 mL (0.083 %) solution for nebulization 2.5 mg inhalation Q6H 11/21/24 calcium carbonate 500 mg PO QDAY 11/21/24 ferrous sulfate 325 mg (65 mg iron) tablet 325 mg PO QDAY 11/21/24 fluticasone fur. 200 mcg-umeclid 62.5 mcg-vilant 25 mcg inhalat.powder (Trelegy Ellipta) 1 inh inhalation QDAY 11/21/24 pantoprazole 40 mg tablet,delayed release 40 mg PO BID #60 tabs 11/21/24 sucralfate 1 gram tablet 1 g PO 0700,1100,1600 #90 tabs 11/21/24 Hospital Course Operations None Procedures Blood transfusion and EGD Summary of Care Provided Minutes Spent on Discharge: 31 Hospital Course: This 74-year-old white male was seen in the emergency room at [facility] with complaints of recurrent upper GI bleed. He had been hospitalized earlier in November for an acute upper GI bleed-endoscopy showed a duodenal ulcerwith a visible vessel which was treated with injection and a heater probe. Patient was transfused 2 units of packed red blood cells at that time. Given the significance of the bleed patient was transferred to [facility] in [place] for further evaluation. The patient stated that he was observedthere for 3 days without any recurrence of bleeding was able to be discharged home. Patient awoke the day of his present emergency room visit with abdominal pain had a bout of emesis with it was dark and color. He then passed a large dark bowel movement resulting in him coming to the ER for evaluation. On arrival his hemoglobin was 6 down from 9.8 on 11/15/2024. CT of the abdomen and pelvis showed diffuse thickening of the stomach from probable gastritis with acute hemorrhage products in the gastric lumen along with mild wall thickening inflammatory changes involving the proximal duodenum. Blood transfusion was initiated, the case was discussed with gastroenterology who recommended the patient be transferred to [facility] For possible interventional care. Patient was given 3 units of blood in the emergency room, he had no further episodes of emesis or dark stools but transfer has been delayed due to bed availability and the patient was admitted here to the hospital. Patient was admitted to PCU and was seen in consultation by gastroenterology who performed an endoscopy which showed a duodenal ulcer. This was treated. Patient was given further transfusions and his blood counts stabilized. On 11/23/2024, patient was seen and examined: On examination he appeared in good health and spirits. Vital signs as documented. Skin warm and dry and without overt rashes. Neck without JVD, neck was supple, trachea midline, thyroid was normal. Lungs clear bilaterally, normal air movement was noted. Heart exam notable for regularrhythm, normal sounds and absence of murmurs, rubs or gallops. Abdomen unremarkable and without evidence of organomegaly, masses, or abdominal aortic enlargement. Bowel sounds are present, abdomen is not distended. Extremities nonedematous, no cyanosis was noted, no clubbing was noted. Neuro: Cranial nerves II through XII are grossly intact, no focal motor deficits were noted, sensation to light touch and pinprick intact, motor exam 5/5 throughout. Psych:Patient is alert and oriented x3, he does not appear anxious or depressed, he does not appear agitated. Patient was discharged home in stable condition on 11/23/2024 Weight / BMI Weight Weight: 63 kg Body Mass Index (BMI) 22.4 ABG / Lab / Microbiology Data 11/21/24 05:13 11/19/24 05:13 Microbiology: Microbiology 11/18/24 04:10 Urine, Clean Catch Urine Culture - Final Culture exhibits no growth. 11/18/24 02:10 Stool Stool Occult Blood (ASIF) - Final Occult Blood Positive D/C Instructions DC O2, CPAP, BIPAP Needs Home O2 Discharge instructions: No Meaningful Use Info Meaningful Use Meaningful Use Diagnoses (Choose all that apply): None applicable Discharge Plan Admission Admit Date/Time: 11/18/24 17:28 Primary Reason for Your Visit: Acute upper GI bleed secondary to duodenal ulcer Attending Provider: Pradip Pichardo Primary Care Provider: Padmini Carrasco Consulting Providers: Derrell Fonseca; Kamlesh Floyd; Summer Grande; Oxana Camarillo; Minda Foreman; Chet Valdivia Instructions Additional Instructions / Restrictions: Resume Trelegy inhaler as before Discharge Orders/Prescriptions Prescriptions: New sucralfate 1 gram Tablet 1 g PO 0700,1100,1600 Qty: 90 0RF pantoprazole 40 mg Tablet,Delayed Release (Dr/Ec) 40 mg PO BID Qty: 60 0RF Continued amlodipine 5 mg tablet 5 mg PO DAILY Qty: 30 11RF aspirin 81 mg tablet,delayed release (DR/EC) 81 mg PO DAILY Patient Comments: STOP PER DR. WINSTON PRIOR TO PROCEDURE rosuvastatin [Crestor] 5 mg tablet 5 mg PO DAILY acetaminophen 500 mg capsule 1,000 mg PO Q6H PRN (Reason: pain) cholecalciferol (vitamin D3) 25 mcg (1,000 unit) capsule 25 mcg PO DAILY (DME) OXYGEN - Supplemental ([facility] INFORMATIONAL USE ONLY) 0 .ROUTE .MEDSUPPLY Patient Comments: 2lpm @HS and prn during day metoprolol tartrate 25 mg tablet 12.5 mg PO BID Qty: 90 3RF No Action ferrous sulfate 325 mg (65 mg iron) tablet 325 mg PO QDAY Trelegy Ellipta 200-62.5-25 mcg blister with device 1 inh inhalation QDAY albuterol sulfate 2.5 mg /3 mL (0.083 %) solution for nebulization 2.5 mg inhalation Q6H calcium carbonate 500 mg calcium (1,250 mg) tablet 500 mg PO QDAY Referrals / Follow Up: Padmini Carrasco MD [Primary Care Provider, Family Practice] - 11/28/24 2:00 pm Referral Note: Obtain a repeat CBC to recheck your blood count Kamlesh Floyd DO [Med Staff - Active Staff, Gastroenterology] - 12/06/24 10:30am Referral Note: In 2 to 3 weeks for follow-up APPOINTMENT WITH [facility] Disposition Disposition (needs filled in before D/C Order can be placed): Home, Self Care Charges/Coding Visit Charges Inpatient E&M: 83355 Disch Hosp >30min 11/27/24 1502 <Electronically signed by Pradip Pichardo DO> Cosigner Signature (if applicable): CC: Dr. Padmini Carrasco MD; Dr. Pradip Pichardo DO~ Signed [facility] Work Phone: Discharge summary Author Pradip Pichardo [facility] Note Date/Time November 21, 2024 1 2:41pm [facility] Medical Records Department [address] [place] [address] Instructions for Home/Discharge Instructions 11/21/24 1225 MR#: [id number] Acct: [id number] Name: ABELARDO IVORY Rep #:[id number] : 1950 74 From: Pradip Pichardo DO PCP: Dr. Padmini Carrasco MD Status :ADM IN Discharge Instructions DC O2, CPAP, BIPAP needs Home O2 Discharge instructions: No Dressing / Incision Discharge Activity: Return to Normal Activity Follow Up Care Test Results: Test results from this visit will be discussed in further detail at your follow- up appointment, if applicable. Discharge Plan Admission Admit Date/Time: 11/18/24 17:28 Primary Reason for Your Visit: Acute upper GI bleed secondary to duodenal ulcer Attending Provider: Pradip Pichardo Primary Care Provider: Padmini Carrasco Consulting Providers: Derrell Fonseca; Kamlesh Floyd; Summer Grande; Oxana Camarillo; Minda Foreman; Chet Valdivia Instructions Additional Instructions / Restrictions: Resume Trelegy inhaler as before Discharge Orders/Prescriptions Prescriptions: New sucralfate 1 gram Tablet 1 g PO 0700,1100,1600 Qty: 90 0RF pantoprazole 40 mg Tablet,Delayed Release (Dr/Ec) 40 mg PO BID Qty: 60 0RF Continued amlodipine 5 mg tablet 5 mg PO DAILY Qty: 30 11RF aspirin 81 mg tablet,delayed release (DR/EC) 81 mg PO DAILY Patient Comments: STOP PER DR. WINSTON PRIOR TO PROCEDURE rosuvastatin [Crestor] 5 mg tablet 5 mg PO DAILY acetaminophen 500 mg capsule 1,000 mg PO Q6H PRN (Reason: pain) cholecalciferol (vitamin D3) 25 mcg (1,000 unit) capsule 25 mcg PO DAILY (DME) OXYGEN - Supplemental ([facility] INFORMATIONAL USE ONLY) 0 .ROUTE .MEDSUPPLY Patient Comments: 2lpm @HS and prn during day metoprolol tartrate 25 mg tablet 12.5 mg PO BID Qty: 90 3RF Referrals / Follow Up: Padmini Carrasco MD [Primary Care Provider, Family Practice] - In 1 Week Referral Note: Obtain a repeat CBC to recheck your blood count Friend,DO Kamlesh [Med Staff - Active Staff, Gastroenterology] - See Referral Note Referral Note: In 2 to 3 weeks for follow-up Disposition Disposition (needs filled in before D/C Order can be placed): Home, Self Care 11/21/24 1241<Electronically signed by Pradip Pichardo DO>Pradip Pichardo DO CC: MINE MOTOR ENGINEERCarlitos Grande; TOÑO Camarillo; Dr. Chet Valdivia DO; Dr. Padmini Carrasco MD; Dr. Derrell Fonseca MD; KALPANA Ramirez; DO Tanvi ~ Signed [facility] Work Phone: Evaluation noteNo assessment information available [facility] Work Phone: Evaluation note* Diagnosis Abdominal aortic aneurysm (AAA) without rupture, unspecified part- Primary Edema of abdomen [facility] Diagnosis Ruptured abdominal aortic aneurysm (AAA), unspecified part- Primary documented in this encounter [facility] note* Diagnosis Onset Date Resolution Status Hypoxia acute Pneumonia acute Acute respiratory failure with hypoxia resolved COPD exacerbation resolved Lower extremity edema acute Abdominal aortic aneurysm (AAA) chronic Atherosclerotic heart diseas e of [place] coronary artery without angina pectoris chronic Essential hypertension chron ic History of aortic valve replacement February 12, 2019 chronic Hyperlipidemia chronic Kidney disease chronic Lower extremity edema acute Abdominal aortic aneurysm (AAA) chronic Atherosclerotic heart diseas e of [place] coronary artery without angina pectoris chronic Essential hypertension chron ic History of aortic valve replacement February 12, 2019 chronic Hyperlipidemia chronic Kidney disease chronic Hypoxia acute COPD (chronic obstructive pulmonary disease) chronic Secondary pulmonary arterial hypertension chronic Tobacco dependence chronic Abdominal aortic aneurysm (AAA) chronic 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 acute [id number] acute Wound of left upper extremity acute [facility] Work Phone: Evaluation note* Diagnosis Onset Date Resolution Status Hypoxia acute Pneumonia acute Acute respiratory failure with hypoxia resolved COPD exacerbation resolved Lower extremity edema acute Abdominal aortic aneurysm (AAA) chronic Atherosclerotic heart diseas e of [place] coronary artery without angina pectoris chronic Essential hypertension chron ic History of aortic valve replacement February 12, 2019 chronic Hyperlipidemia chronic Kidney disease chronic Lower extremity edema acute Abdominal aortic aneurysm (AAA) chronic Atherosclerotic heart diseas e of [place] coronary artery without angina pectoris chronic Essential hypertension chron ic History of aortic valve replacement February 12, 2019 chronic Hyperlipidemia chronic Kidney disease chronic Hypoxia acute COPD (chronic obstructive pulmonary disease) chronic Secondary pulmonary arterial hypertension chronic Tobacco dependence chronic Abdominal aortic aneurysm (AAA) chronic 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 acute [id number] acute Wound of left upper extremity acute 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 acute [id number] acute Wound of left upper extremity acute Lower extremity edema acute Abdominal aortic aneurysm (AAA) chronic Atherosclerotic heart diseas e of [place] coronary artery without angina pectoris chronic Essential hypertension chron ic History of aortic valve replacement February 12, 2019 chronic Hyperlipidemia chronic Kidney disease [facility] Work Phone: Evaluation note* Diagnosis Onset Date Resolution Status Hypoxia acute Pneumonia acute Acute respiratory failure with hypoxia resolved COPD exacerbation resolved Lower extremity edema acute Abdominal aortic aneurysm (AAA) chronic Atherosclerotic heart diseas e of [place] coronary artery without angina pectoris chronic Essential hypertension chron ic History of aortic valve replacement February 12, 2019 chronic Hyperlipidemia chronic Kidney disease chronic Lower extremity edema acute Abdominal aortic aneurysm (AAA) chronic Atherosclerotic heart diseas e of [place] coronary artery without angina pectoris chronic Essential hypertension chron ic History of aortic valve replacement February 12, 2019 chronic Hyperlipidemia chronic Kidney disease chronic Hypoxia acute COPD (chronic obstructive pulmonary disease) chronic Secondary pulmonary arterial hypertension chronic Tobacco dependence chronic Abdominal aortic aneurysm (AAA) chronic 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 acute [id number] acute Wound of left upper extremity acute Lower extremity edema acute Abdominal aortic aneurysm (AAA) chronic Atherosclerotic heart diseas e of [place] coronary artery without angina pectoris chronic Essential hypertension chron ic History of aortic valve replacement February 12, 2019 chronic Hyperlipidemia chronic Kidney disease chronic 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 acute [id number] acute Wound of left upper extremity acute [facility] Work Phone: Evaluation note* Diagnosis Onset Date Resolution Status 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 acute [id number] acute Wound of left upper extremity acute Lower extremity edema acute Abdominal aortic aneurysm (AAA) chronic Atherosclerotic heart diseas e of [place] coronary artery without angina pectoris chronic Essential hypertension chron ic History of aortic valve replacement February 12, 2019 chronic Hyperlipidemia chronic Kidney disease chronic 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 acute [id number] acute Wound of left upper extremity acute COPD (chronic obstructive pulmonary disease) chronic Secondary pulmonary arterial hypertension chronic Tobacco dependence chronic [facility] Work Phone: Evaluation note* Diagnosis Onset Date Resolution Status S/P AAA repair chronic COPD (chronic obstructive pulmonary disease) chronic Smoking greater than 40 pack years chronic Abdominal aortic aneurysm (AAA) chronic Atherosclerotic heart diseas e of [place] coronary artery without angina pectoris chronic Essential hypertension chron ic History of aortic valve replacement February 12, 2019 chronic Hyperlipidemia chronic Smoking greater than 40 pack years chronic [facility] Work Phone: Evaluation note* Diagnosis Onset Date Resolution Status COPD (chronic obstructive pulmonary disease) chronic Smoking greater than 40 pack years chronic Abdominal aortic aneurysm (AAA) chronic Atherosclerotic heart diseas e of [place] coronary artery without angina pectoris chronic Essential hypertension chron ic History of aortic valve replacement February 12, 2019 chronic Hyperlipidemia chronic Smoking greater than 40 pack years [facility] Work Phone: Evaluation note* Diagnosis Malignant neoplasm of urinary bladder, unspecified site (HCC) [facility] Diagnosis Malignant neoplasm of urinary bladder, unspecified site (HCC)- Primary Nocturia Hematuria, gross Gross hematuria documented [facility]* Diagnosis Malignant neoplasm of urinary bladder, unspecified site (HCC)- Primary Malignant neoplasm of urinary bladder, unspecified site (HCC) [facility] Diagnosis Malignant neoplasm of urinary bladder, unspecified site (HCC)- Primary Hematuria, gross Gross hematuria Malignant neoplasm of urinary bladder, unspecified site (HCC) Gross hematuria [facility]* Diagnosis Preop testing- Primary Preoperative examination, unspecified 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[place] heart without angina pectoris Essential hypertension Unspecified [...] hematuria * Assessment & Plan Note - Marisela [...] artery disease involving coronary bypass graft of [place] heart without angina pectoris Assessment: Followed by [facility] - H/O CABG - taking aspirin [...] the prior echocardiographic exam performed on 09/29/2020 ([place]). Limited study. * Assessment & Plan Note - Marisela Dsouza APRN.CNP - 08/16/2024 7:26 AM EDT Associated Problem(s): Preop testing Assessment : See Note for medical conditions which may affect kirstie-operative course was addressed in visit today. documented in this encounter [facility] note* Diagnosis Preop testing- Primary Preoperative examination, unspecified 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[place] heart without angina pectoris Essential hypertension Unspecified [...] Primary Other hydronephrosis documented in this encounter [facility] note* Diagnosis Preop testing- Primary Preoperative examination, unspecified 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[place] heart without angina pectoris Essential hypertension Unspecified [...] Gross hematuria documented in this encounter [facility] note* Diagnosis Preop testing- Primary Preoperative examination, unspecified 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[place] heart without angina pectoris Essential hypertension Unspecified [...] site (HCC)- Primary [facility]* Diagnosis Preop testing- Primary Preoperative examination, unspecified 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[place] heart without angina pectoris Essential hypertension Unspecified [...] on left Hydroureter [facility]* Diagnosis Preop testing- Primary Preoperative examination, unspecified 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[place] heart without angina pectoris Essential hypertension Unspecified [...] of urinary bladder [facility]* Diagnosis Preop testing- Primary Preoperative examination, unspecified 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[place] heart without angina pectoris Essential hypertension Unspecified [...] on left Hydroureter [facility] Preop testing- Primary Preoperative examination, unspecified 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[place] heart without angina pectoris Essential hypertension Unspecified [...] (HCC) Other hydronephrosis [facility]* Diagnosis Preop testing- Primary Preoperative examination, unspecified 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[place] heart without angina pectoris Essential hypertension Unspecified [...] of bladder documented in this encounter [facility] note* Diagnosis Preop testing- Primary Preoperative examination, unspecified 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[place] heart without angina pectoris Essential hypertension Unspecified [...] of bladder documented in this encounter [facility] note* Diagnosis Preop testing- Primary Preoperative examination, unspecified 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[place] heart without angina pectoris Essential hypertension Unspecified [...] bladder [facility]* Diagnosis Preop testing- Primary Preoperative examination, unspecified 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[place] heart without angina pectoris Essential hypertension Unspecified [...] unspecified site (HCC) [facility]* Diagnosis Preop testing- Primary Preoperative examination, unspecified 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[place] heart without angina pectoris Essential hypertension Unspecified [...] bladder documented [facility]* Diagnosis Preop testing- Primary Preoperative examination, unspecified 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[place] heart without angina pectoris Essential hypertension Unspecified [...] Primary documented in this [facility]* Diagnosis Preop testing- Primary Preoperative examination, unspecified 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[place] heart without angina pectoris Essential hypertension Unspecified [...] sites of bladder [facility] Diagnosis Preop testing- Primary Preoperative examination, unspecified 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[place] heart without angina pectoris Essential hypertension Unspecified [...] of urinary bladder [facility] Diagnosis Preop testing- Primary Preoperative examination, unspecified 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[place] heart without angina pectoris Essential hypertension Unspecified [...] bladder documented [facility] this [facility]* Diagnosis Preop testing- Primary Preoperative examination, unspecified 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[place] heart without angina pectoris Essential hypertension Unspecified [...] of urinary bladder [facility] Preop testing- Primary Preoperative examination, unspecified 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[place] heart without angina pectoris Essential hypertension Unspecified [...] sites of bladder [facility]* Diagnosis Preop testing- Primary Preoperative examination, unspecified 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[place] heart without angina pectoris Essential hypertension Unspecified [...] neoplasm of prostate [facility]* Diagnosis Preop testing- Primary Preoperative examination, unspecified 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[place] heart without angina pectoris Essential hypertension Unspecified [...] sites of bladder documented in this [facility]* Diagnosis Preop testing- Primary Preoperative examination, unspecified 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[place] heart without angina pectoris Essential hypertension Unspecified [...] sites of bladder documented in [facility] Diagnosis Preop testing- Primary Preoperative examination, unspecified 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[place] heart without angina pectoris Essential hypertension Unspecified [...] bladder documented in this [facility]* Diagnosis Preop testing- Primary Preoperative examination, unspecified 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[place] heart without angina pectoris Essential hypertension Unspecified [...] Primary documented in this encounter [facility] Author Suzanne Medley [facility] Note Date/Time November 07, 2024 9: 47pm [facility] Medical Records Department [address] [place] [id number] H&P Exam - Hospitalist 11/07/242012 MR#: [id number] Acct: [id number] Name: ABELARDO IVORY Rep #:[id number] 22 : 1950 74 From: Suzanne Medley MD PCP: Dr. Padmini Carrasco MD Status :[facility] Location: ICU ICU03-1 HPI - General General Date of Admission: 11/07/24 Date of Service: 11/07/24 Chief Complaint: BRBPR, copious. HPI Narrative The patient is a 74 y/o M w/ PMHx: COPD, Bladder Cancer s/p transurethral resection on chemotherapy and possibly radiation [facility], [place] heart disease status post AVR, CAD status post CABG x 1, CKD stage III unclear subtype per GFR trending, HTN, HLD, Tobacco use, AAA s/p rupture s/p repair who presents to the [facility] ED on 11/07/2024 with significant bright red [...] 62 improving following PRBC with most recent hegdqpD19.6, heart rate 78, BP 03/02/1972, respiratory rate 16, 98% oxygenation, CBC with WC 10.8, hemoglobin initially 9.1 at 1555 with repeat at 1757 noted to be hemoglobin 7.8, platelet 229 with left shift, unremarkable coags, CMP with potassium 5.3 not noted to be hemolyzed, BUN/creatinine 47/2.09, GFR 33, symngcn020, lactic acid 2.2, hepatic profile not marked [...] was evaluated in the endoscopy suite at [facility] on 11/07/2024 and at the time of [...] necessary and higherlevel of care with onsite mds manager team should patient decompensate again. Given the need for ongoing medical care, in the interim in the best interest of the patient, will proceed with admission to [facility] ICU following endoscopy and care will be [...] did contact per discussion with Dr. Floyd [facility] as initial and they at this time are requesting that they be recontacted once the endoscopy is complete to know better where to place the patient. [facility] Medical History Bladder cancer Wears dentures Wears glasses Bruising Easy bruising High cholesterol Smoker Shortness of breath on exertion History of echocardiogram Cardiology follow-up encounter Stage 3b chronic kidney disease (CKD) Thrombocytopenia Chronic kidney insufficiency Pleural effusion Secondary pulmonary arterial hypertension Atherosclerotic heart disease of [place] coronary artery without angina pectoris Intention tremor [...] Arthritis Diabetes Brother Cancer Unsure what kind- "just a lump on his neck" Surgical History Neoplasm of bladder Hx of [...] (Auto) 76.0 H, Lymph % (Auto)11.8 L, [place] % (Auto) 9.8, Eos % (Auto) 1.1, [...] Clarity Cloudy, Urine pH 6.0, Ur Specific [place] 1.015, Urine Protein 100 H, Urine Glucose [...] with eccentric noncalcified plaque/mural thrombus. Reading Location: [facility] Chest X-Ray 11/07/24 18:53 IMPRESSION: No focal consolidation. Extensive pulmonary emphysema. Reading Location: [facility] Assessment & Plan Assessment/Plan (1) GI bleed: (2) Hemorrhagic shock: PLAN: Plan The patient is a 74 y/o M w/ PMHx: COPD, Bladder Cancer s/p transurethral resection on chemotherapy and [facility], [place] heart disease status post AVR, CAD status post CABG x 1, CKD stage III unclear subtype per GFR trending, HTN, HLD, Tobacco use, AAA s/p rupture s/p repair who presents to the [facility] ED on 11/07/2024 with significant bright red [...] ongoing NPO status, continue GI consultation, request mds manager involvement while awaiting for tertiary facility [...] noted) per facility protocol if remains at [facility] as transfer is pending. #4. Hyperkalemia, mild: Admission potassium 5.3, not markedly elevated, will continue hydration, repeat CMP in AM if remains at [facility] astransfer is pending. #5. Bladder cancer: Patient with transurethral bladder resection 06/27/[address] Winston, following with [facility] oncology on chemotherapy and radiation with last [...] fluid suggesting of aneurysm leak transferred to [facility] undergoing thoracoretroperitoneal for ruptured juxtarenal abdominal aortic [...] 1 with SVG to RCA 02/12/2019 at [facility], additionally at the same time had AVR, [...] 16 minutes. Charges/Coding Visit Charges Inpatient E&M: 49381 Init Hosp L3 Procedures Hospitalists Procedures: 75078 Advncd Care Plan 30 Min 11/07/242052 <Electronically [...] ulceration was found in the duodenum. Contacting [facility] now to initiate transfer. 11/07/242146<Electronically signed by Suzanne Medley MD> Cosigner Signature (if applicable): cc: Dr. Suzanne Medley MD; Dr. Padmini Carrasco MD ~* Signed [facility] Work Phone: History and physical note Author Chet Valdivia [facility] Note Date/Time November 18, 2024 6 :38pm [facility] Medical Records Department [address] [place] [address] H&P Exam - Hospitalist 11/18/24 1728 MR#: [id number] Acct: [id number] Name: ABELARDO IVORY Rep #:[id number] : 1950 74 From: Chet ro DO PCP: Dr. Padmini Carrasco MD Status :ADM IN Location: [address] Date of Admission: 11/18/24 Date of Service: 11/18/24 Chief Complaint: Recurrent upper GI bleed HPI Narrative ABELARDO IVORY, is a 74 M who presented to [facility] ED on 11/18/2024 with recurrent upper GI bleed. Patient was initially hospitalized here on 11/07 for severe acute upper GI bleed. Urgent EGD showed red blood in the entire stomach and a spurting duodenal ulcer with a visible vessel that was injected and treated with heater probe. Patient required 2 units of blood at that time. Given the significance of the bleed, patient was transferred to [facility] for further evaluation. Per patient and family report, he was observed there for about 3 days without any recurrence of bleeding and was then able to be discharged home. Patient awoke early on the morning of 11/18 with abdominal pain and had a bout of emesis that was dark in color. He then passed a large dark bowel movement, so he came to the ED for further evaluation. On arrival his hemoglobin was 6.0, down from 9.8 on 11/15. CT abdomen pelvis showeddiffuse thickening of the stomach from probable gastritis with acute hemorrhagicproducts in the gastric lumen, along with mild wall thickening inflammatory changes involving the proximal duodenum. Blood transfusion was initiated and EDphysician discussed case with Dr. Floyd, who noted that given the recurrent nature of his bleeding, he may require a surgical invention for definitive management of the ulcer and that type of procedure would not be performed at [facility]. Thus, transfer to [facility] was initiated and patient was accepted for transfer. He was given 3 units of blood here with repeat hemoglobin 8.7, and he had no further episodes of emesis or dark stools. Transfer has been delayed so hospitalist was contacted for admission. I saw thepatient at bedside in the ED. Patient was sitting back comfortably in bed, conversing normally, in no acute distress. He denied any acute abdominal pain or discomfort currently. Denied any other acute concerns at this time. Will beadmitted for further management. [facility] Medical History Bladder cancer Wears dentures Wears glasses Bruising Easy bruising High cholesterol Smoker Shortness of breath on exertion History of echocardiogram Cardiology follow-up encounter Stage 3b chronic kidney disease (CKD) Thrombocytopenia Chronic kidney insufficiency Pleural effusion Secondary pulmonary arterial hypertension Atherosclerotic heart disease of [place] coronary artery without angina pectoris Intention tremor [...] Arthritis Diabetes Brother Cancer Unsure what kind- "just a lump on his neck" Surgical History Neoplasm of bladder Hx of inguinal hernia repair S/P inguinal hernia repair History of cardiac catheterization S/P AAA repair 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) History of left heart catheterization (11/27/18) History of aortic valve replacement (02/12/19) Social History (Updated 11/07/24 @ 20:[address] Suzanne Medley MD) household members: none Smoking Status: Former smoker quit status: has quit before alcohol intake: never substance use type: does not use caffeine: Yes Type: coffee Number of servings: 3 what type of physical activity do you participate in: other frequency: 3-4 times per week seatbelt use: always ROS Constitutional Constitutional: Denies chills, fatigue, fever(s) or weakness Eyes Eyes: Denies change in vision Cardiovascular Cardiovascular: Denies chest pain Respiratory/Chest Respiratory/Chest: Denies shortness of breath at rest Gastrointestinal Gastrointestinal: Denies abdominal pain, nausea or vomiting Musculoskeletal Musculoskeletal: Denies arthralgias or myalgias Neurologic Neurologic: Denies dizziness, focal weakness or headache(s) Vital Signs Vital Signs Vital Signs: 11/18/24 01:48 11/18/24 01:54 11/18/24 02:23 Temperature 95.9 F L 95.9 F L 95.9 F L Temperature Source Axillary Axillary Oral Pulse Rate 73 74 72 Respiratory Rate 25 H 18 18 Blood Pressure 84/55 L 84/55 L 101/63 Blood Pressure Mean 64 64 75 Blood Pressure Source Monitor Blood Pressure Position Supine Blood Pressure Location Right Arm Pulse Ox 99 Oxygen Delivery Method Room Air Room Air Oxygen Flow Rate (L/min) 11/18/24 02:26 11/18/24 02:38 11/18/24 03:00 Temperature 96.2 F L 96.0 F L Temperature Source Oral Oral Pulse Rate 73 74 78 Respiratory Rate 18 18 18 Blood Pressure 101/63 101/57 L 101/51 L Blood Pressure Mean 75 71 67 Blood Pressure Source Monitor Blood Pressure Position Supine Blood Pressure Location Right Arm Pulse Ox 100 98 100 Oxygen Delivery Method Room Air Room Air Room Air Oxygen Flow Rate (L/min) 11/18/24 03:38 11/18/24 03:54 11/18/24 04:00 Temperature 96.0 F L 96.0 F L 96.0 F L Temperature Source Oral Oral Oral Pulse Rate 70 71 70 Respiratory Rate 16 18 18 Blood Pressure 135/58 H 98/57 L 114/58 L Blood Pressure Mean 83 70 76 Blood Pressure Source Monitor Monitor Blood Pressure Position Semi-Fowlers Semi-Fowlers Blood Pressure Location Right Arm Right Arm Pulse Ox 99 98 98 Oxygen Delivery Method Room Air Room Air Room Air Oxygen Flow Rate (L/min) 11/18/24 04:04 11/18/24 04:09 11/18/24 04:19 Temperature 96.1 F L 96.0 F L 96.0 F L Temperature Source Oral Oral Oral Pulse Rate 86 81 75 Respiratory Rate 18 18 18 Blood Pressure 129/84 H 129/84 H 116/63 Blood Pressure Mean 99 99 80 Blood Pressure Source Monitor Blood Pressure Position Semi-Fowlers Blood Pressure Location Right Arm Pulse Ox 98 95 98 Oxygen Delivery Method Room Air Room Air Room Air Oxygen Flow Rate (L/min) 11/18/24 04:34 11/18/24 04:49 11/18/24 05:00 Temperature 96.0 F L 98.2 F Temperature Source Oral Oral Pulse Rate 68 86 74 Respiratory Rate 18 18 18 Blood Pressure 90/58 L 130/61 H 100/66 Blood Pressure Mean 68 84 77 Blood Pressure Source Blood Pressure Position Blood Pressure Location Pulse Ox 99 96 98 Oxygen Delivery Method Room Air Room Air Room Air Oxygen Flow Rate (L/min) 11/18/24 05:06 11/18/24 05:09 11/18/24 05:47 Temperature 98.2 F 98.0 F 98.0 F Temperature Source Oral Oral Oral Pulse Rate 69 71 68 Respiratory Rate 18 18 18 Blood Pressure 100/66 99/62 121/63 H Blood Pressure Mean 77 74 82 Blood Pressure Source Monitor Monitor Monitor Blood Pressure Position Semi-Fowlers Semi-Fowlers Semi-Fowlers Blood Pressure Location Right Arm Right Arm Right Arm Pulse Ox 98 98 97 Oxygen Delivery Method Room Air Room Air Room Air Oxygen Flow Rate (L/min) 11/18/24 05:53 11/18/24 06:00 11/18/24 06:08 Temperature 98.0 F 97.7 F L Temperature Source Oral Oral Pulse Rate 67 68 70 Respiratory Rate 18 18 18 Blood Pressure 116/64 119/64 132/67 H Blood Pressure Mean 81 82 88 Blood Pressure Source Monitor Monitor Blood Pressure Position Semi-Fowlers Semi-Fowlers Blood Pressure Location Right Arm Right Arm Pulse Ox 96 97 98 Oxygen Delivery Method Room Air Room Air Room Air Oxygen Flow Rate (L/min) 11/18/24 06:15 11/18/24 07:12 11/18/24 07:39 Temperature 97.9 F 97.5 F L Temperature Source Oral Oral Pulse Rate 68 67 68 Respiratory Rate 18 15 17 Blood Pressure 127/67 H 120/61 136/67 H Blood Pressure Mean 87 80 90 Blood Pressure Source Monitor Monitor Blood Pressure Position Semi-Fowlers Semi-Fowlers Blood Pressure Location Right Arm Right Arm Pulse Ox 99 98 99 Oxygen Delivery Method Room Air Nasal Cannula Room Air Oxygen Flow Rate (L/min) 2 11/18/24 09:00 11/18/24 10:00 11/18/24 11:00 Temperature Temperature Source Pulse Rate 65 72 66 Respiratory Rate 19 H 20 H 15 Blood Pressure 120/68 116/61 112/58 L Blood Pressure Mean 85 79 76 Blood Pressure Source Blood Pressure Position Blood Pressure Location Pulse Ox 97 97 96 Oxygen Delivery Method Room Air Room Air Room Air Oxygen Flow Rate (L/min) 11/18/24 12:00 11/18/24 13:00 11/18/24 14:00 Temperature Temperature Source Pulse Rate 73 80 84 Respiratory Rate 18 18 18 Blood Pressure 125/61 H 109/83 H 106/65 Blood Pressure Mean 82 91 78 Blood Pressure Source Blood Pressure Position Blood Pressure Location Pulse Ox 98 98 97 Oxygen Delivery Method Room Air Oxygen Flow Rate (L/min) 11/18/24 15:00 11/18/24 16:00 11/18/24 17:00 Temperature Temperature Source Pulse Rate 69 71 74 Respiratory Rate 19 H 18 21 H Blood Pressure 103/64 115/53 L Blood Pressure Mean 77 73 Blood Pressure Source Blood Pressure Position Blood Pressure Location Pulse Ox 97 99 100 Oxygen Delivery Method Nasal Cannula Oxygen Flow Rate (L/min) Weight Weight: 65.2 kg Body Mass Index (BMI) 23.1 Physical Exam Const alert, oriented x3, no apparent distress and average body habitus Constitutional Narrative: Elderly male, mildly fatigued appearing but otherwise sitting back comfortably in bed, conversing normally, in no acute distress. General Appearance: cooperative and comfortable HEENT normocephalic, head/scalp atraumatic, hearing grossly normal bilaterally, nasal mucous membranes and turbinates normal and moist oral mucous membranes Eyes PERRL, EOMs intact bilaterally and conjunctivae normal Neck full ROM Chest inspection of chest normal Resp normal respiratory effort, normal air movement, no use of accessory muscles and clear to auscultation bilaterally Cardio regular rate, regular rhythm, no murmurs and peripheral pulses 2+ throughout GI normal to inspection, nondistended, normoactive bowel sounds, soft to palpation,non-tender and non-distended Back/Spine normal ROM Extremity normal to inspection, full ROM and no pedal edema Skin no rashes or lesions noted Psych mental status grossly normal Results Lab / Micro Data 11/18/24 16:50 11/18/24 16:50 Labs: Laboratory Results - last 24 hr 11/18/24 01:30: WBC 11.2 H, RBC 1.96 L, Hgb 6.0 L*, Hct 19.5 L, MCV 99.5 H, MCH 30.6, MCHC 30.8 L, RDW Std Deviation 59.5 H, RDW Coeff of Manjit 16.4 H, Plt Count 239, MPV 9.0, Immature Gran % (Auto) 0.800, Neut % (Auto) 73.2 H, Lymph % (Auto)13.9 L, Hawkins % (Auto) 10.9 H, Eos % (Auto) 0.8, Baso % (Auto) 0.4, Absolute Neuts (auto) 8.2 H, Absolute Lymphs (auto) 1.56, Nucleated RBC % 0, PT 13.8, INR1.0, APTT 23.8 L, Sodium 138, Potassium 5.3 H, Chloride 104, Carbon Dioxide 21.7, Anion Gap 13, BUN 65 H, Creatinine 1.89 H, Estim Creat Clear Calc 30.94 L,Est GFR (MDRD) Non-Af 37 L, BUN/Creatinine Ratio 34.2 H, Glucose 182 H, Calcium 8.4 11/18/24 02:14: Lactic Acid 3.7 H*, Blood Type A POSITIVE, Antibody Screen NEGATIVE, Crossmatch See Detail 11/18/24 02:14: Crossmatch See Detail 11/18/24 04:10: Urine Color Yellow, Urine Clarity Clear, Urine pH 6.0, Ur Specific Ashton 1.010, Urine Protein 100 H, Urine Glucose (UA) Normal, Urine Ketones Negative, Urine Occult Blood 25 H, Urine Nitrite Positive H, Urine Bilirubin 1 H, Urine Urobilinogen 1 H, Ur Leukocyte Esterase 25 H, Urine RBC 0 SEEN, Urine WBC 10-25 SEEN, Ur Squamous Epith Cells 0 SEEN, Urine Bacteria 1+, Hyaline Casts 0-5 SEEN, Urine Mucus 0 SEEN 11/18/24 05:52: Lactic Acid 1.1 11/18/24 11:17: Lactic Acid < 1.0 11/18/24 16:50: WBC 8.2, RBC 2.81 L, Hgb 8.7 L, Hct 26.3 L, MCV 93.6 D, MCH 31.0, MCHC 33.1 D, RDW Std Deviation 53.8 H, RDW Coeff of Manjit 16.1 H, Plt [id number] L, MPV 8.8, Immature Gran % (Auto) 0.600, Neut % (Auto) 77.4 H, Lymph % (Auto) 11.4 L, Hawkins % (Auto) 9.4, Eos % (Auto) 0.7, Baso % (Auto) 0.5, Absolute Neuts (auto) 6.3, Absolute Lymphs (auto) 0.93, Nucleated RBC % 0 Micro: Microbiology 11/18/24 02:10 Stool Stool Occult Blood (ASIF) - Final Occult Blood Positive Imaging Radiology Impression Abdomen/Pelvis CTA 11/18/24 02:03 IMPRESSION: No CT evidence for active gastrointestinal hemorrhage. Diffuse thickening of the stomach, probably gastritis. Acute hemorrhagic products in the gastric lumen. Mild wall thickening and inflammatory changes involving the proximal duodenum, and distal rectosigmoid colon suggestive of enterocolitis. Nonspecific diarrheal illness with fluid in the colon. Marked wall thickening of the bladder with surrounding inflammatory fat stranding, may be infectious/inflammatory or related to known neoplasm. Possibly treatment related change. Similar mild left hydroureteronephrosis. Evidence of left ureteritis/pyelitis. Stable appearance of irregular diffuse fusiform aneurysmal dilatation of the infrarenal abdominal aorta and bilateral common iliac arteries, with eccentric noncalcified plaque/mural thrombus. [facility]Ray 11/18/24 03:00 IMPRESSION: No evidence for acute abnormality. [facility] Assessment & Plan Assessment/Plan (1) GI bleed: (2) Acute blood loss anemia: PLAN: Plan Patient is a 74-year-old male who presented to [facility] ED on 11/18/2024 with a recurrent upper GI bleed. 1. Recurrent upper GI bleed due to peptic ulcer disease with acute blood loss anemia ? Admit under inpatient status to PCU. See HPI for further details on recent history. In short, presented here on 11/07 with acute severe upper GI bleed withhemorrhagic shock due to acute blood loss anemia. Urgent EGD showed red blood in the entire stomach and a spurting duodenal ulcer with a visible vessel that was injected and treated with heater probe. He was then transferred to [facility] for further management. No recurrence of bleed there and he was discharged home 3 days later. Presented on morning of 11/18 with an episode of coffee-ground emesis followed by a large dark stool. Hemoglobin 6.0 in the ED, down from 9.8 on 11/15. Lactate 3.7 and BP borderline low presumed due to blood loss. CTA abdomen pelvis diffuse thickening of the stomach from probable gastritis with acute hemorrhagic products in the gastric lumen, along with mild wall thickening inflammatory changes involving the proximal duodenum. Started on Protonix drip and given 3 units packed blood cells with repeat hemoglobin 8.7. Has had no further episodes of emesis or dark stools. ED physician discussed case with Dr. Floyd who recommended transfer back to [facility] aspatient may need definitive surgical management for his recurrent upper GI bleed. Will continue PPI drip for now. Follow-up a.m. CBC. Will keep n.p.o. with sips and chips for now. Will transfer to [facility] once bed is available. 2. Recent history of bladder cancer s/p TUBR on active chemotherapy and radiation therapy ? Follows with Dr. Winston and Dr. Dawkins. Had bladder tumor resected in June of this year. Last chemotherapy was on 10/19 and last session of radiation therapy was on 10/22. No inpatient needs, continue close outpatient follow-up. 3. Hypertension, hyperlipidemia, history of CABG, history of bioprosthetic AVR,history of AAA repair ? Follows with [facility], last office visit in August. History of CABG x1 and bioprosthetic AVR in 2019, as well as AAA repair in 2021. Hypotensive to the 80s systolic on arrival to the ED due to upper GI bleed as above. BP improved to the 100s to 110s systolic after blood transfusion. Will hold home aspirin, amlodipine, and Lopressor. Okay to continue home statin. 4. CKD stage IIIb ? Creatinine 1.89 on arrival to the ED, baseline 1.6-1.7. Creatinine improved to 1.60 after blood transfusion. Follow-up a.m. BMP and monitor urine output. 5. COPD ? Stable on room air at rest, not in acute exacerbation. Continue home long- acting inhaler. 6. History of tobacco abuse ? Encouraged continued cessation. DVT prophylaxis: SCDs CODE STATUS: DNR CCA, DNI Expected disposition: Transfer to [facility] Total clinical time spent by myself addressing the patient's medical issues, reviewing all the data, and collaborating with patient's care team: 76 minutes. Charges/Coding Visit Charges Inpatient E&M: 36879 Init Hosp L3 11/18/24 5180 <Electronically signed by Chet Valdivia DO> Cosigner Signature (if applicable): CC: Dr. Chet Valdivia DO; Dr. Padmini Carrasco MD~ Signed [facility] Work Phone: Hospital Discharge instructions Additional Instructions [...] with Tylenol and or ibuprofen for pain controlWClinton [facility] Work Phone: Hospital Discharge instructionsAmbulatory Orders* Vascular Location: None Selected [facility] Work Phone: Hospital Discharge instructionsAdditional Instructions Resume Trelegy inhaler as before Date of Discharge: 11/21/24[facility] Work Phone: Proiwess note Author Chet Valdivia [facility] Note Date/Time November 18, 2024 5 :39pm [facility] Medical Records Department [address] [place] [address] Progress Note - Hospitalist 11/18/241736 MR#: [id number] Acct: [id number] Name: ABELARDO IVORY Rep #:[id number] : 1950 74 From: Chet ro DO PCP: Dr. Padmini Carrasco MD Status :REG ER Location: ED Hospitalist Note Patient was evaluated in the Emergency Department at [facility] on 11/17. At the time of evaluation, transfer to a tertiary hospital was felt to be in the patient's best interest due to recurrent severe upper GI bleed fromduodenal ulcer with possible need for advanced surgical intervention. Attempts were made by the Emergency Department and/or the Hospitalist team to get patientto the appropriate level of care. Although the pt is accepted for transfer to [facility], there are no staffed beds currently available. Given the need for ongoing medical care, patient will be admitted to [facility] on 11/18, and care will be provided here until [facility] has an available staffed bed. Pt and/or family are aware of the transfer, the reasoning behind the need for transfer, and that until a staffed bed becomes available, we will provide evidence-based care to the best of our abilities, with the limitations of care here being fully addressed. 11/18/241738 <Electronically signed by Chet Valdivia DO> Cosigner Signature (if applicable): CC: ~ Signed [facility] Work Phone: Prodznju note Author Pradip [facility] Note Date/Time November 21, 2024 1 2:45pm [facility] Medical Records Department [address] [place] [address] Progress Note - Hospitalist 11/19/241919 MR#: [id number] Acct: [id number] Name: ABELARDO IVORY Rep #:[id number] : 1950 74 From: Pradip Pichardo DO PCP: Dr. Padmini Carrasco MD Status :ADM IN Location: [place] [address] Reason for Visit Chief Complaint: Recurrent upper GI bleed Subjective Subjective Patient was seen and examined today, [...] okay with staying here at the hospital. Objective Data Objective Data Vital Signs: Vital Signs Temp Pulse Resp BP Pulse Ox O2 Del Method O2 Flow Rate 97.9 F 76 16 132/54 H 99 Room Air 3 11/19/24 16:17 11/19/24 16:17 11/19/24 16:17 11/19/24 16:17 11/19/24 16:17 11/19/24 16:17 11/19/24 09:10 Oxygen Flow Rate (L/min) 3 Oxygen Delivery Method Room Air Weight: 63 kg Body Mass Index (BMI) 22.4 Intake & Output: Intake and Output for Last 24 Hours 11/17/24 11/18/24 11/19/24 23:59 23:59 23:59 Intake Total 2123 / 2123 1160 / 1160 Output Total 1152 / 1152 Balance 2123 / 4 Medical Nutrition Assessment Dietitian: Malnutrition Criteria Met Start: 11/19/24 13:31 Freq: Status: Active Protocol: Document 11/19/24 13:31 SB (Rec: 11/19/24 13:32 SB [id number]) Nutrition Malnutrition Evidence of Yes Malnutrition Exists Malnutrition (severe Chronic ): Evidenced By Suboptimal Energy Intake (Moderate),Weight Loss (Severe ) Clinical Problem Chronic Disease or Condition Related Malnutrition Etiology severe malnutrition related to inadequate oral intake and increased energy expenditure due to bladder cancer Signs/Symptoms as evidenced by PO meeting <50% of estimated nutrition needs x 1 week and 10% unintentional weight loss x 3 months Status Active Problem Recommendation Dietitian Recommend advanced diet as tolerated to transitional Recommendations/ with goal of regular. Changes Will order 120mL chocolate EPHP 4x daily with medpass. Will monitor weight trends. Lab / Micro Data 11/21/24 05:13 11/19/24 05:13 Labs: Laboratory Results - last 24 hr 11/18/24 02:14: Crossmatch See Detail 11/19/24 05:13: WBC 6.0, RBC 2.34 L, Hgb 7.1 L, Hct 21.9 L, MCV 93.6, MCH 30.3, MCHC 32.4, RDW Std Deviation 53.4 H, RDW Coeff of Manjit 16.0 H, Plt Count 117 L, MPV 9.0, Sodium 139, Potassium 4.8, Chloride 110 H, Carbon Dioxide 21.7, Anion Gap 8, BUN 63 H, Creatinine 1.59 H, Estim Creat Clear Calc 36.32 L, Est GFR (MDRD) Non-Af 45 L, BUN/Creatinine Ratio 39.7 H, Glucose 111 H, Calcium 8.0 Micro: Microbiology 11/18/24 02:10 Stool Stool Occult Blood (ASIF) - Final Occult Blood Positive Physical Exam Const alert, oriented x3 and no apparent distress General Appearance: cooperative, well kempt and well developed Orientation / Consciousness: awake, oriented to person, oriented to place and oriented to time HEENT normocephalic, head/scalp atraumatic and moist oral mucous membranes Eyes PERRL, EOMs intact bilaterally and conjunctivae normal Neck supple, no JVD, thyroid normal and no carotid bruits General: trachea midline Resp normal respiratory effort, no retractions, no use of accessory muscles and clearto auscultation bilaterally Auscultation: Negative for rales, rhonchi or wheezes Cardio regular rate, regular rhythm, S1 normal heart sound, S2 normal heart sound, no murmurs, no rub and no gallops GI normal to inspection, nondistended, normoactive bowel sounds, soft to palpation,non-tender and non-distended Extremity no clubbing, cyanosis or edema Skin no rashes or lesions noted General Skin Exam: no breakdown Neuro oriented x3, CN's II-XII intact bilaterally, moves all extremities, no focal motor deficits and no sensory deficits noted Sensorium / Orientation: awake and alert Speech: speech normal Psych affect normal Assessment & Plan Assessment/Plan (1) Duodenal ulcer: PLAN: Plan 1. Acute upper GI hemorrhage from bleeding duodenal ulcer-CBC will be monitored, patient will remain on Carafate and Protonix #2 acute blood loss anemia secondary to #1 requiring blood transfusion-CBC will be monitored #3 chronic obstructive pulmonary disease-patient will remain on aerosol treatments #4 hypertension-patient's amlodipine is being held at this time #5 hyperlipidemia-patient is on a statin Total clinical time spent by myself addressing the patient's medical issues, reviewing all of his data, and collaborating with patient's care team: 35 minutes Charges/Coding Visit Charges Inpatient E&M: 86527 Subs Hosp L2 11/21/24 1244 <Electronically signed by Pradip Pichardo DO> Cosigner Signature (if applicable): CC: ~ Signed [facility] Work Phone: Progress note Author Summer Grande [facility] Note Date/Time November 19, 2024 1 1:56pm [facility] Medical Records Department [address] [place] [address] Progress Note - Hospitalist 11/19/24 3860 MR#: [id number] Acct: [id number] Name: ABELARDO IVORY Rep #:[id number] : 1950 74 From: Summer Pathak PCP: Dr. Padmini Carrasco MD Status :ADM IN Location: [place] [address] Hospitalist Note Notified by nrsg that pt is having 8/10 pelvic and penis pain when voiding, which is frequently. He reports taking a pain medication at home but does not know the name of it. No opioid recorded on his med rec list. Current BP [id number]. PRN acetaminophen "is not working." Considering his history of bladder cancer, I did order a x1 dose of Fentanyl 25mcg IV and Oxy IR 5mg PO q6h PRN pain 6-10, as these options are short-acting. 10/13/25 6823 <Electronically signed by Summer LUNDBERG> Cosigner Signature (if applicable): CC: ~ Signed [facility] Work Phone: Progress note Author Pradip Pichardo [facility] Note Date/Time November 21, 2024 1 2:48pm [facility] Medical Records Department [address] [place] [address] Progress Note - Hospitalist 11/20/24 1434 MR#: [id number] Acct: [id number] Name: ABELARDO IVORY Rep #:[id number] : 1950 74 From: Pradip Pichardo DO PCP: Dr. Padmini Carrasco MD Status :ADM IN Location: [place] [address] Reason for Visit Chief Complaint: Recurrent upper GI bleed Subjective Subjective Patient was seen and examined today, his hemoglobin this morning was 6.8, I elected to give him 2 units of packed red blood cells. CBC will be rechecked tomorrow morning, patient remains on Carafate and Protonix at this time. Objective Data Objective Data Vital Signs: Vital Signs Temp Pulse Resp BP Pulse Ox O2 Del Method O2 Flow Rate 97.4 F L 80 16 123/62 H 100 Nasal Cannula 2 11/20/24 14:15 11/20/24 14:15 11/20/24 14:15 11/20/24 14:15 11/20/24 14:15 11/20/24 14:15 11/20/24 12:15 Oxygen Flow Rate (L/min) 2 Oxygen Delivery Method Nasal Cannula Weight: 63 kg Body Mass Index (BMI) 22.4 Intake & Output: Intake and Output for Last 24 Hours 11/18/24 11/19/24 11/20/24 23:59 23:59 23:59 Intake Total 2123 / 2123 1400 / 1400 0 / 0 Output Total 1427 / 1427 700 / 700 Balance 2123 / 1823 -27 / -27 -700 / -700 Medical Nutrition Assessment Dietitian: Malnutrition Criteria Met Start: 11/19/24 13:31 Freq: Status: Active Protocol: Document 11/19/24 13:31 SB (Rec: 11/19/24 13:32 SB [id number]) Nutrition Malnutrition Evidence of Yes Malnutrition Exists Malnutrition (severe Chronic ): Evidenced By Suboptimal Energy Intake (Moderate),Weight Loss (Severe ) Clinical Problem Chronic Disease or Condition Related Malnutrition Etiology severe malnutrition related to inadequate oral intake and increased energy expenditure due to bladder cancer Signs/Symptoms as evidenced by PO meeting <50% of estimated nutrition needs x 1 week and 10% unintentional weight loss x 3 months Status Active Problem Recommendation Dietitian Recommend advanced diet as tolerated to transitional Recommendations/ with goal of regular. Changes Will order 120mL chocolate EPHP 4x daily with medpass. Will monitor weight trends. Lab / Micro Data 11/21/24 05:13 11/19/24 05:13 Labs: Laboratory Results - last 24 hr 11/18/24 02:14: Crossmatch See Detail 11/18/24 02:14: Crossmatch See Detail 11/20/24 08:30: Hgb 6.8 L, Hct 20.8 L Micro: Microbiology 11/18/24 04:10 Urine, Clean Catch Urine Culture - Final Culture exhibits no growth. 11/18/24 02:10 Stool Stool Occult Blood (ASIF) - Final Occult Blood Positive Physical Exam Const alert, oriented x3, no apparent distress and average body habitus General Appearance: cooperative, well kempt and well developed Orientation / Consciousness: awake, oriented to person, oriented to place and oriented to time HEENT normocephalic and moist oral mucous membranes Eyes PERRL, EOMs intact bilaterally and conjunctivae normal Neck supple, no JVD, thyroid normal and no carotid bruits General: trachea midline Resp normal respiratory effort and clear to auscultation bilaterally Auscultation: Negative for rales, rhonchi or wheezes Cardio regular rate, regular rhythm, S1 normal heart sound, S2 normal heart sound, no murmurs, no rub and no gallops GI normal to inspection, nondistended, normoactive bowel sounds, soft to palpation,non-tender and non-distended Extremity no clubbing, cyanosis or edema Skin no rashes or lesions noted General Skin Exam: no breakdown Neuro oriented x3, CN's II-XII intact bilaterally, moves all extremities, no focal motor deficits and no sensory deficits noted Sensorium / Orientation: awake and alert Speech: speech normal Psych affect normal Assessment & Plan Assessment/Plan (1) Duodenal ulcer: PLAN: Plan 1. Acute upper GI hemorrhage from bleeding duodenal ulcer-CBC will be monitored, patient will remain on Carafate and Protonix #2 acute blood loss anemia secondary to #1 requiring blood transfusion-CBC will be monitored, patient will receive 2 units of packed red blood cells today #3 chronic obstructive pulmonary disease-patient will remain on aerosol treatments #4 hypertension-patient's amlodipine is being held at this time #5 hyperlipidemia-patient is on a statin Total clinical time spent by myself addressing the patient's medical issues, reviewing all of his data, and collaborating with patient's care team: 35 minutes Charges/Coding Visit Charges Inpatient E&M: 55969 Subs Hosp L2 11/21/24 1248 <Electronically signed by Pradip Pichardo DO> Cosigner Signature (if applicable): CC: ~ Signed [facility] Work Phone: Reason for referral (narrative)* Outpatient Procedure (Routine) - Authorized Specialty Diagnoses / Procedures Referred By Jeff lundberg Referred To Contact [facility] Diagnoses Abdominal aortic aneurysm (AAA) without rupture, unspecified part Edema of abdomen Procedures US ABD AORTA COMPLETE VAS LAB DUP-SCAN AORTA IVC ILIAC VASCL/BPGS COMPLETE Jamin Wilcox MD [address] [place] [address] [address] Referral ID Status Reason Start Date Expiration Date Visits Requested Visits Authorized [id number] Authorized Auto-Generat ed Referral 2 01/01/[address] [facility] for referral (narrative)No reason for referral information availableWClinton Memorial Hospital Work Phone: [place] for visit Narrative* MRI/CT (Routine) - Closed Specialty Diagnoses / Procedures Referred By Jeff lundberg Referred To Contact [facility] Diagnoses Malignant neoplasm of urinary bladder, unspecified site (HCC) Procedures CT CHEST W IVCON DIAGNOSTIC COMPUTED TOMOGRAPHY THORAX W/CONTRAST Codey Christianson MD [address] [place] [address] Phone: tel: fax: [place] [address] Referral ID Status Reason Start Date Expiration Date V isits Requested Visits Authorized [id number] Closed Auto-Generate d Referral 07/26/2024 08/25/2025 1 1 [facility] Advance Directives Documents on File Type Date Recorded Patient Manager Photo Expl anation Advance Directive(s) 02/06/2019 12:13 PM Date Activated Date Inactivated Comments 12/28/2021 2:50 PM 12/28/2021 8:54 PM Question Answer Comments Full Code Order Discussed With: Patient Documents on File Type Date Recorded Patient Manager Photo Expl anation Advance Directive(s) 02/08/2019 1:40 PM Advance Directive(s) 02/06/2019 12:13 PM scanned in today Advance Directive(s) 02/06/2019 12:13 PM Advance Directive(s) 01/24/2019 2:53 PM Advance Directive Response Recorded Date/ Time Advance Directives Yes November 27, 2018 7:21am Living Will Yes November 27 7:21am Power of Conflict Resolution Professional Yes November 27, 2018 7:21am Advance Directive Response Recorded Date/ Time Advance Directives Yes November 27, 2018 6:21am Living Will Yes December 28, 022 10:34am Power of Conflict Resolution Professional No December 28, 2021 10:34am Latest Code Status on File Code Status Date Activated Date Inactivated Comments Full Code 12/28/2021 2:50 PM 12/28/2021 8:54 PM Full Code Order Discussed With: Patient Documents on File Type Date Recorded Patient Manager Photo Expl anation Advance Directive(s) 02/06/2019 12:13 PM Latest Code Status on File Code Status Date Activated Date Inactivated Comments Full Code 12/28/2021 2:50 PM 12/28/2021 8:54 PM Advance Directive Response Recorded Date/ Time Advance Directives Yes November 27, 2018 6:21am Living Will Yes March 02 9:10am Power of Conflict Resolution Professional No March 02, 2022 9:10am Advance Directive Response Recorded Date/ Time Advance Directives Yes November 27, 2018 6:21am Living Will Yes March 02 4:52pm Power of Conflict Resolution Professional No March 02, 2022 4:52pm Advance Directive Response Recorded Date/ Time Advance Directives Yes November 27, 2018 6:21am Living Will No February 13th, 2 023 5:01pm Power of Conflict Resolution Professional No March 22, 2022 5:01pm Advance Directive Response Recorded Date/ Time Advance Directives Yes November 27, 2018 7:21am Living Will No March 22 023 6:01pm Power of Conflict Resolution Professional No March 22, 2022 6:01pm Advance Directive Response Recorded Date/ Time Living Will No March 22, 023 6:01pm Do you have a Healthcare Power of Conflict Resolution Professional? No March 22, 2022 6:01pm Living Will Yes January 08 11:15am Do you have a Healthcare Power of Conflict Resolution Professional? Yes January 09, 2024 11:15am Name of Medical Power of Conflict Resolution Professional CANDIE CHADWICK January 09, 2024 11:15am Advance Directives Yes November 27, 2018 7:21am Advance Directive Response Recorded Date/ Time Living Will No March 22 023 6:01pm Do you have a Healthcare Pow er of Conflict Resolution Professional? No March 22, 2022 6:01pm Living Will Yes May 16, 2024 10:19pm Do you have a Healthcare Pow er of Conflict Resolution Professional? Yes May 16, 2024 10:19pm Name of Medical Power of Conflict Resolution Professional daughter Candie Chadwick May 16, 2024 10:19pm Living Will Yes January 08 11:15am Do you have a Healthcare Pow er of Conflict Resolution Professional? Yes January 09, 2024 11:15am Name of Medical Power of Conflict Resolution Professional CANDIE CHADWICK January 09, 2024 11:15am Advance Directives Yes November 27, 2018 7:21am Advance Directive Response Recorded Date/ Time Living Will No March 22 6:01pm Do you have a Healthcare Pow er of Conflict Resolution Professional? No March 22, 2022 6:01pm Advance Directives Yes June 15, 2024 8:41am Living Will Yes May 16, 2024 10:19pm Do you have a Healthcare Pow er of Conflict Resolution Professional? Yes May 16, 2024 10:19pm Name of Medical Power of Conflict Resolution Professional daughter Candie Chadwick May 16, 2024 10:19pm Advance Directive Response Recorded Date/ Time Living Will No March 22 023 6:01pm Do you have a Healthcare Pow er of Conflict Resolution Professional? No March 22, 2022 6:01pm Advance Directives Yes June 15, 2024 8:41am Living Will Yes May 16, 2024 10:19pm Do you have a Healthcare Pow er of Conflict Resolution Professional? Yes May 16, 2024 10:19pm Name of Medical Power of Conflict Resolution Professional daughter Candie Chadwick May 16, 2024 10:19pm Do you have a Healthcare Pow er of Conflict Resolution Professional? No June 13, 2024 10:26am Advance Directive Response Recorded Date/ Time Living Will No March 22 6:01pm Do you have a Healthcare Pow er of Conflict Resolution Professional? No March 22, 2022 6:01pm Advance Directives Yes June 15, 2024 8:41am Living Will Yes May 16, 2024 10:19pm Do you have a Healthcare Pow er of Conflict Resolution Professional? Yes May 16, 2024 10:19pm Name of Medical Power of Conflict Resolution Professional daughter Candie Chadwick May 16, 2024 10:19pm Do you have a Healthcare Pow er of Conflict Resolution Professional? No June 27, 2024 3:48pm Date Activated Date Inactivated Comments 12/28/2021 2:50 PM 12/28/2021 8:54 PM Question Answer Comments Full Code Order Discussed With: Patient Advance Directive Response Recorded Date/ Time Advance Directives Yes June 15, 2024 8:41am Living Will Yes May 16, 2024 10:19pm Do you have a Healthcare Pow er of Conflict Resolution Professional? Yes May 16, 2024 10:19pm Name of Medical Power of Conflict Resolution Professional jatin Chadwick May 16, 2024 10:19pm Do you have a Healthcare Pow er of Conflict Resolution Professional? No June 27, 2024 3:48pm Advance Directive Response Recorded Date/ Time Advance Directives Yes June 15, 2024 8:41am Do you have a Healthcare Power of Conflict Resolution Professional? No June 27, 2024 3:48pm Advance Directive Response Recorded Date/ Time Do you have a Healthcare Power of Conflict Resolution Professional? Yes November 07, 2024 10:08pm Name of Medical Power of Conflict Resolution Professional Kary November 07, 2024 10:08pm Advance Directives Yes June 15, 2024 8:41am Advance Directive Response Recorded Date/ Time Do you have a Healthcare Pow er of Conflict Resolution Professional? Yes November 07, 2024 10:08pm Name of Medical Power of Conflict Resolution Professional Kary November 07, 2024 10:08pm Do you have a Healthcare Pow er of Conflict Resolution Professional? Yes November 18, 2024 6:22pm Name of Medical Power of Conflict Resolution Professional Kary will November 18, 2024 6:22pm Do you have a Healthcare Pow er of Conflict Resolution Professional? Yes November 23, 2024 11:40am Advance Directives Yes June 15, 2024 8:41am [...] RLL CAP RLL CHF EVERYTHING CHF per VARNISH MAKER HELPER /L.[place]ors[place] Reason for Visit Abdominal aortic ane urysm (AAA) Essential hypertension H/O coronary artery bypass surgery History of aortic valve replacement Hyperlipidemia Kidney disease Hypoxia Pneumonia Acute respiratory failure with hypoxia COPD exacerbation Lower extremity edema Abdominal aortic aneurysm (AAA) Atherosclerotic heart disease of [place] coronary artery without angina pectoris Essential hypertension History of aortic valve replacement Hyperlipidemia Kidney disease Chief Complaint ABD 6 M FU E ORDERS/2 ORDERING DOCTORS EORDER RUPTURED ABDOMINAL AORTIC ANEURYSM/RX HERE CAP RLL Shortness of breath CAP RLL CAP RLL CHF EVERYTHING CHF per VARNISH MAKER HELPER /L.Lorson EORDER PER [facility] F/U BILAT LOWER PAIN Amb Documentation EORDER Reason for Visit Abdominal aortic ane urysm (AAA) Essential hypertension H/O coronary artery bypass surgery History of aortic valve replacement Hyperlipidemia Kidney disease Hypoxia Pneumonia Acute respiratory failure with hypoxia COPD exacerbation Lower extremity edema Abdominal aortic aneurysm (AAA) Atherosclerotic heart disease of [place] coronary artery without angina pectoris Essential hypertension History of aortic valve replacement Hyperlipidemia Kidney disease Lower extremity edema Abdominal aortic aneurysm (AAA) Atherosclerotic heart disease of [place] coronary artery without angina pectoris Essential hypertension History of aortic valve replacement Hyperlipidemia Kidney disease Hypoxia COPD (chronic obstructive pulmonary disease) Secondary pulmonary arterial hypertension Tobacco dependence Abdominal aortic aneurysm (AAA) Chief Complaint ABD 6 M FU E ORDERS/2 ORDERING DOCTORS EORDER RUPTURED ABDOMINAL AORTIC ANEURYSM/RX HERE CAP RLL Shortness of breath CAP RLL CAP RLL CHF EVERYTHING CHF per [employer]ARNISH MAKER HELPER /L.[place] EORDER PER [facility] F/U BILAT LOWER PAIN Amb Documentation EORDER FOOT PAIN wound wound Reason for Visit Abdominal aortic ane urysm (AAA) Essential hypertension H/O coronary artery bypass surgery History of aortic valve replacement Hyperlipidemia Kidney disease Hypoxia Pneumonia Acute respiratory failure with hypoxia COPD exacerbation Lower extremity edema Abdominal aortic aneurysm (AAA) Atherosclerotic heart disease of [place] coronary artery without angina pectoris Essential hypertension History of aortic valve replacement Hyperlipidemia Kidney disease Lower extremity edema Abdominal aortic aneurysm (AAA) Atherosclerotic heart disease of [place] coronary artery without angina pectoris Essential hypertension History of aortic valve replacement Hyperlipidemia Kidney disease Hypoxia COPD (chronic obstructive pulmonary disease) Secondary pulmonary arterial hypertension Tobacco dependence Abdominal aortic aneurysm (AAA) 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 [id number] Wound of left upper extremity Chief Complaint EORDER RUPTURED ABDOMINAL AORTIC ANEURYSM/RX HERE CAP RLL Shortness of breath CAP RLL CAP RLL CHF EVERYTHING CHF per [employer]ARNISH MAKER HELPER /L.[place] EORDER PER [facility] F/U BILAT LOWER PAIN Amb Documentation EORDER FOOT PAIN wound wound wound wound J44.9 - Chronic obstructive pulmonary disease, uns J44.9 - Chronic obstructive pulmonary disease, uns wound wound Reason for Visit Hypoxia Pneumonia Acute respiratory failure with hypoxia COPD exacerbation Lower extremity edema Abdominal aortic aneurysm (AAA) Atherosclerotic heart disease of [place] coronary artery without angina pectoris Essential hypertension History of aortic valve replacement Hyperlipidemia Kidney disease Lower extremity edema Abdominal aortic aneurysm (AAA) Atherosclerotic heart disease of [place] coronary artery without angina pectoris Essential hypertension History of aortic valve replacement Hyperlipidemia Kidney disease Hypoxia COPD (chronic obstructive pulmonary disease) Secondary pulmonary arterial hypertension Tobacco dependence Abdominal aortic aneurysm (AAA) 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 [id number] Wound of left upper extremity Chief Complaint EORDER RUPTURED ABDOMINAL AORTIC ANEURYSM/RX HERE CAP RLL Shortness of breath CAP RLL CAP RLL CHF EVERYTHING CHF per VARNISH MAKER HELPER /L.[place] EORDER PER [facility] F/U BILAT LOWER PAIN Amb [...] aortic aneurysm (AAA) Atherosclerotic heart disease of [place] coronary artery without angina pectoris Essential hypertension History of aortic valve replacement Hyperlipidemia Kidney disease Lower extremity edema Abdominal aortic aneurysm (AAA) Atherosclerotic heart disease of [place] coronary artery without angina pectoris Essential hypertension History of aortic valve replacement Hyperlipidemia Kidney disease Hypoxia COPD (chronic obstructive pulmonary disease) Secondary pulmonary arterial hypertension Tobacco dependence Abdominal aortic aneurysm (AAA) 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 [id number] Wound of left upper extremity 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 [id number] Wound of left upper extremity Lower extremity edema Abdominal aortic aneurysm (AAA) Atherosclerotic heart disease of [place] coronary artery without angina pectoris Essential hypertension History of aortic valve replacement Hyperlipidemia Kidney disease Chief Complaint EORDER RUPTURED ABDOMINAL AORTIC ANEURYSM/RX HERE CAP RLL Shortness of breath CAP RLL CAP RLL CHF EVERYTHING CHF per VARNISH MAKER HELPER /L.Lorson EORDER PER [facility] F/U BILAT LOWER PAIN Amb [...] aortic aneurysm (AAA) Atherosclerotic heart disease of [place] coronary artery without angina pectoris Essential hypertension History of aortic valve replacement Hyperlipidemia Kidney disease Lower extremity edema Abdominal aortic aneurysm (AAA) Atherosclerotic heart disease of [place] coronary artery without angina pectoris Essential hypertension History of aortic valve replacement Hyperlipidemia Kidney disease Hypoxia COPD (chronic obstructive pulmonary disease) Secondary pulmonary arterial hypertension Tobacco dependence Abdominal aortic aneurysm (AAA) 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 [id number] Wound of left upper extremity Lower extremity edema Abdominal aortic aneurysm (AAA) Atherosclerotic heart disease of [place] coronary artery without angina pectoris Essential hypertension History of aortic valve replacement Hyperlipidemia Kidney disease 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 [id number] Wound of left upper extremity Chief Complaint RUPTURED ABDOMINAL A ORTIC ANEURYSM/RX HERE CAP RLL Shortness of breath CAP RLL CAP RLL CHF EVERYTHING CHF per VARNISH MAKER HELPER /Freida EORDER PER [facility] F/U BILAT LOWER PAIN Amb [...] aortic aneurysm (AAA) Atherosclerotic heart disease of [place] coronary artery without angina pectoris Essential hypertension History of aortic valve replacement Hyperlipidemia Kidney disease Lower extremity edema Abdominal aortic aneurysm (AAA) Atherosclerotic heart disease of [place] coronary artery without angina pectoris Essential hypertension History of aortic valve replacement Hyperlipidemia Kidney disease Hypoxia COPD (chronic obstructive pulmonary disease) Secondary pulmonary arterial hypertension Tobacco dependence Abdominal aortic aneurysm (AAA) 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 [id number] Wound of left upper extremity Lower extremity edema Abdominal aortic aneurysm (AAA) Atherosclerotic heart disease of [place] coronary artery without angina pectoris Essential hypertension History of aortic valve replacement Hyperlipidemia Kidney disease 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 [id number] Wound of left upper extremity Chief Complaint wound wound J44.9 - Chronic obstructive pulmonary disease, uns J44.9 - Chronic obstructive pulmonary disease, uns wound wound J44.9 - Chronic obstructive pulmonary disease, uns J44.9 - Chronic obstructive pulmonary disease, uns wound 4-6 WK F/U EORDER wound wound wound wound 3 M FU Reason for Visit 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 [id number] Wound of left upper extremity Lower extremity edema Abdominal aortic aneurysm (AAA) Atherosclerotic heart disease of [place] coronary artery without angina pectoris Essential hypertension History of aortic valve replacement Hyperlipidemia Kidney disease 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 [id number] Wound of left upper extremity COPD (chronic [...] ulcer of ankle with fat layer exposed [id number] Wound of left upper extremity Lower extremity edema Abdominal aortic aneurysm (AAA) Atherosclerotic heart disease of [place] coronary artery without angina pectoris Essential hypertension History of aortic valve replacement Hyperlipidemia Kidney disease 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 [id number] Wound of left upper extremity COPD (chronic [...] aortic aneurysm (AAA) Atherosclerotic heart disease of [place] coronary artery without angina pectoris Essential hypertension History of aortic valve replacement Hyperlipidemia Smoking greater than 40 pack years Chief Complaint 6 M FU TOBACO 1 Y FU INT LABS VALVE REPLACEMENT EVAL Amb Documentation Reason for Visit COPD (chronic obstru ctive pulmonary disease) Smoking greater than 40 pack years Abdominal aortic aneurysm (AAA) Atherosclerotic heart disease of [place] coronary artery without angina pectoris Essential hypertension [...] June 8:36am Atherosclerotic heart diseas e of [place] coronary artery without angina pectoris June 19, [...] June 8:36am Atherosclerotic heart diseas e of [place] coronary artery without angina pectoris June 19, 2024 8:36am Essential hypertension June 19, 2024 8: 36am History of aortic valve replacement June 19, 2024 8:36am Hyperlipidemia June 19, 2024 8:36a m Smoking greater than 40 pack years June [id number] 8:36am Pre-operative cardiovascular examination August 30, 2024 7:53am Abdominal aortic aneurysm (AAA) August 7:53am Atherosclerotic heart diseas e of [place] coronary artery without angina pectoris August 30, [...] June 8:36am Atherosclerotic heart diseas e of [place] coronary artery without angina pectoris June 19, 2024 8:36am Essential hypertension June 19, 2024 8: 36am History of aortic valve replacement June 19, 2024 8:36am Hyperlipidemia June 19, 2024 8:36a m Smoking greater than 40 pack years June [id number] 8:36am Abdominal aortic aneurysm (AAA) August 7:53am Atherosclerotic heart diseas e of [place] coronary artery without angina pectoris August 30, [...] August 7:53am Atherosclerotic heart diseas e of [place] coronary artery without angina pectoris August 30, [...] August 7:53am Atherosclerotic heart diseas e of [place] coronary artery without angina pectoris August 30, 2024 7:53am Essential hypertension August 30, 2024 7 :53am History of aortic valve replacement August 30, 2024 7:53am Hyperlipidemia August 30, 2024 7:53 am Smoking greater than 40 pack years August 30, 2024 7:53am GI bleed November 07, 2024 8: 14pm Hemorrhagic shock November 07, 2024 8: 14pm Chief Complaint Admit Date 1 Y FU August 30, 2024 7:53 am BLADDER CANCER September 21, 2024 7: 43am COLONSCOPY November 07, 2024 8: 06pm HEMORRHAGIC SHOCK, GI BLEED November 07, 2024 8:13pm HEMORRHAGIC SHOCK, GI BLEED November 07, 2024 8:14pm RECURRENT UPPER GI BLEED W/ABLA November 18, 2024 5:28pm GI BLEED November 18, 2024 5 :37pm RECURRENT UPPER GI BLEED W/ABLA November 19, 2024 10:13am RECURRENT UPPER GI BLEED W/ABLA November 19, 2024 11:50pm RECURRENT UPPER GI BLEED W/ABLA November 20, 2024 2:34pm gu November 23, 2024 1 1:21am RECURRENT UPPER GI BLEED W/ABLA November 23, 2024 12:39pm Reason for Visit Admit Date Atherosclerotic heart diseas e of [place] coronary artery without angina pectoris August 30, 2024 7:53am Essential hypertension August 30, 2024 7 :53am History of aortic valve replacement August 30, 2024 7:53am Hyperlipidemia August 30, 2024 7:53 am Smoking greater than 40 pack years August 30, 2024 7:53am Abdominal aortic aneurysm (AAA) August 7:53am Hemorrhagic shock November 07, 2024 8: 14pm GI bleed November 07, 2024 8: 14pm Abdominal aortic aneurysm (AAA) November 18, 2024 5:28pm Acute blood loss anemia November 18 5:28pm Acute upper gastrointestinal hemorrhage November 18, 2024 5:28pm Chronic kidney disease November 18 5:28pm COPD (chronic obstructive pulmonary dise ase) November 18, 2024 5:28pm Duodenal ulcer November 18, 2024 5 :28pm GI bleed November 18, 2024 5 :28pm Hypovolemic shock November 18, 2024 5 :28pm UTI (urinary tract infection) November 182024 5:28pm Family History Relationship Condition Age at Onset Recorded Date/T [...] Referred By Jeff t Referred To Contact [facility] Diagnoses Ruptured abdominal aortic aneurysm (AAA), unspecified part Procedures CONSULT TO PHYSICAL THERAPY PHYSICAL THERAPY EVALUATION HIGH COMPLEX 45 MINS Jamin Wilcox MD [address] [place] [address] [facility] [address] [place] [address] Referral ID Status Reason Start Date Expiration Date Visits Requested Visits Authorized [id number] Authorized PCP Requested Referral Auto-Generate d Referral [...] any alcohol or drug abuse patient.[facility] [place] the event this information is protected by the Federal Confidentiality of Alcohol and Drug Abuse Patient Records regulations: The Federal rules restrict any use of the information to criminally investigate or prosecute any alcohol or drug abuse patient.[facility] [place] the event this information is protected by the Federal Confidentiality of Alcohol and Drug Abuse Patient Records regulations: The Federal rules restrict any use of the information to criminally investigate or prosecute any alcohol or drug abuse patient.[facility] [place] the event this information is protected by the Federal Confidentiality of Alcohol and Drug Abuse Patient Records regulations: The Federal rules restrict any use of the information to criminally investigate or prosecute any alcohol or drug abuse patient.[facility] [place] the event this information is protected by the Federal Confidentiality of Alcohol and Drug Abuse Patient Records regulations: The Federal rules restrict any use of the information to criminally investigate or prosecute any alcohol or drug abuse patient.[facility] [place] the event this information is protected by the Federal Confidentiality of Alcohol and Drug Abuse Patient Records regulations: The Federal rules restrict any use of the information to criminally investigate or prosecute any alcohol or drug abuse patient.[facility] [place] the event this information is protected by the Federal Confidentiality of Alcohol and Drug Abuse Patient Records regulations: The Federal rules restrict any use of the information to criminally investigate or prosecute any alcohol or drug abuse patient.[facility] [place] the event this information is protected by the Federal Confidentiality of Alcohol and Drug Abuse Patient Records regulations: The Federal rules restrict any use of the information to criminally investigate or prosecute any alcohol or drug abuse patient.[facility] [place]In the event this information is protected by the Federal Confidentiality of Alcohol and Drug Abuse Patient Records regulations: The Federal rules restrict any use of the information to criminally investigate or prosecute any alcohol or drug abuse patient.[facility] [place]In the event this information is protected by the Federal Confidentiality of Alcohol and Drug Abuse Patient Records regulations: The Federal rules restrict any use of the information to criminally investigate or prosecute any alcohol or drug abuse patient.[facility] [place]In the event this information is protected by the Federal Confidentiality of Alcohol and Drug Abuse Patient Records regulations: The Federal rules restrict any use of the information to criminally investigate or prosecute any alcohol or drug abuse patient.[facility] [place]In the event this information is protected by the Federal Confidentiality of Alcohol and Drug Abuse Patient Records regulations: The Federal rules restrict any use of the information to criminally investigate or prosecute any alcohol or drug abuse patient.[facility] [place]In the event this information is protected by the Federal Confidentiality of Alcohol and Drug Abuse Patient Records regulations: The Federal rules restrict any use of the information to criminally investigate or prosecute any alcohol or drug abuse patient.[facility] [place]In the event this information is protected by the Federal Confidentiality of Alcohol and Drug Abuse Patient Records regulations: The Federal rules restrict any use of the information to criminally investigate or prosecute any alcohol or drug abuse patient.[facility] [place]In the event this information is protected by the Federal Confidentiality of Alcohol and Drug Abuse Patient Records regulations: The Federal rules restrict any use of the information to criminally investigate or prosecute any alcohol or drug abuse patient.[facility] [place]In the event this information is protected by the Federal Confidentiality of Alcohol and Drug Abuse Patient Records regulations: The Federal rules restrict any use of the information to criminally investigate or prosecute any alcohol or drug abuse patient.[facility] [facility], [place]onIn the event this information is protected by the Federal Confidentiality of Alcohol and Drug Abuse Patient Records regulations: The Federal rules restrict any use of the information to criminally investigate or prosecute any alcohol or drug abuse patient.[facility], [place]onIn the event this information is protected by the Federal Confidentiality of Alcohol and Drug Abuse Patient Records regulations: The Federal rules restrict any use of the information to criminally investigate or prosecute any alcohol or drug abuse patient.[facility], [place]onIn the event this information is protected by the Federal Confidentiality of Alcohol and Drug Abuse Patient Records regulations: The Federal rules restrict any use of the information to criminally investigate or prosecute any alcohol or drug abuse patient.[facility], [place]onIn the event this information is protected by the Federal Confidentiality of Alcohol and Drug Abuse Patient Records regulations: The Federal rules restrict any use of the information to criminally investigate or prosecute any alcohol or drug abuse patient.[facility], [place]onIn the event this information is protected by the Federal Confidentiality of Alcohol and Drug Abuse Patient Records regulations: The Federal rules restrict any use of the information to criminally investigate or prosecute any alcohol or drug abuse patient.[facility], [place]onIn the event this information is protected by the Federal Confidentiality of Alcohol and Drug Abuse Patient Records regulations: The Federal rules restrict any use of the information to criminally investigate or prosecute any alcohol or drug abuse patient.[facility], [place]onIn the event this information is protected by the Federal Confidentiality of Alcohol and Drug Abuse Patient Records regulations: The Federal rules restrict any use of the information to criminally investigate or prosecute any alcohol or drug abuse patient.[facility], [place]onIn the event this information is protected by the Federal Confidentiality of Alcohol and Drug Abuse Patient Records regulations: The Federal rules restrict any use of the information to criminally investigate or prosecute any alcohol or drug abuse patient.[facility], [place]onIn the event this information is protected by the Federal Confidentiality of Alcohol and Drug Abuse Patient Records regulations: The Federal rules restrict any use of the information to criminally investigate or prosecute any alcohol or drug abuse patient.[facility], [place]onIn the event this information is protected by the Federal Confidentiality of Alcohol and Drug Abuse Patient Records regulations: The Federal rules restrict any use of the information to criminally investigate or prosecute any alcohol or drug abuse patient.[facility], [place]onIn the event this information is protected by the Federal Confidentiality of Alcohol and Drug Abuse Patient Records regulations: The Federal rules restrict any use of the information to criminally investigate or prosecute any alcohol or drug abuse patient.[facility], [place]onIn the event this information is protected by the Federal Confidentiality of Alcohol and Drug Abuse Patient Records regulations: The Federal rules restrict any use of the information to criminally investigate or prosecute any alcohol or drug abuse patient.[facility] [place]onIn the event this information is protected by the Federal Confidentiality of Alcohol and Drug Abuse Patient Records regulations: The Federal rules restrict any use of the information to criminally investigate or prosecute any alcohol or drug abuse patient.[facility], [place]onIn the event this information is protected by the Federal Confidentiality of Alcohol and Drug Abuse Patient Records regulations: The Federal rules restrict any use of the information to criminally investigate or prosecute any alcohol or drug abuse patient.[facility], [place]onIn the event this information is protected by the Federal Confidentiality of Alcohol and Drug Abuse Patient Records regulations: The Federal rules restrict any use of the information to criminally investigate or prosecute any alcohol or drug abuse patient.[facility], [place]onIn the event this information is protected by the Federal Confidentiality of Alcohol and Drug Abuse Patient Records regulations: The Federal rules restrict any use of the information to criminally investigate or prosecute any alcohol or drug abuse patient.[facility], [place]onIn the event this information is protected by the Federal Confidentiality of Alcohol and Drug Abuse Patient Records regulations: The Federal rules restrict any use of the information to criminally investigate or prosecute any alcohol or drug abuse patient.[facility], [place]onIn the event this information is protected by the Federal Confidentiality of Alcohol and Drug Abuse Patient Records regulations: The Federal rules restrict any use of the information to criminally investigate or prosecute any alcohol or drug abuse patient.[facility], [place]onIn the event this information is protected by the Federal Confidentiality of Alcohol and Drug Abuse Patient Records regulations: The Federal rules restrict any use of the information to criminally investigate or prosecute any alcohol or drug abuse patient.[facility], [place]onIn the event this information is protected by the Federal Confidentiality of Alcohol and Drug Abuse Patient Records regulations: The Federal rules restrict any use of the information to criminally investigate or prosecute any alcohol or drug abuse patient.[facility], [place]onIn the event this information is protected by the Federal Confidentiality of Alcohol and Drug Abuse Patient Records regulations: The Federal rules restrict any use of the information to criminally investigate or prosecute any alcohol or drug abuse patient.[facility], [place]onIn the event this information is protected by the Federal Confidentiality of Alcohol and Drug Abuse Patient Records regulations: The Federal rules restrict any use of the information to criminally investigate or prosecute any alcohol or drug abuse patient.[facility], [place]onIn the event this information is protected by the Federal Confidentiality of Alcohol and Drug Abuse Patient Records regulations: The Federal rules restrict any use of the information to criminally investigate or prosecute any alcohol or drug abuse patient.[facility], [place]onIn the event this information is protected by the Federal Confidentiality of Alcohol and Drug Abuse Patient Records regulations: The Federal rules restrict any use of the information to criminally investigate or prosecute any alcohol or drug abuse patient.[facility], [place]onIn the event this information is protected by the Federal Confidentiality of Alcohol and Drug Abuse Patient Records regulations: The Federal rules restrict any use of the information to criminally investigate or prosecute any alcohol or drug abuse patient.[facility], [place]onIn the event this information is protected by the Federal Confidentiality of Alcohol and Drug Abuse Patient Records regulations: The Federal rules restrict any use of the information to criminally investigate or prosecute any alcohol or drug abuse patient.[facility], [place]onIn the event this information is protected by the Federal Confidentiality of Alcohol and Drug Abuse Patient Records regulations: The Federal rules restrict any use of the information to criminally investigate or prosecute any alcohol or drug abuse patient.[facility], [place]onIn the event this information is protected by the Federal Confidentiality of Alcohol and Drug Abuse Patient Records regulations: The Federal rules restrict any use of the information to criminally investigate or prosecute any alcohol or drug abuse patient.[facility], [place]onIn the event this information is protected by the Federal Confidentiality of Alcohol and Drug Abuse Patient Records regulations: The Federal rules restrict any use of the information to criminally investigate or prosecute any alcohol or drug abuse patient.[facility], [place]onIn the event this information is protected by the Federal Confidentiality of Alcohol and Drug Abuse Patient Records regulations: The Federal rules restrict any use of the information to criminally investigate or prosecute any alcohol or drug abuse patient.[facility], [place]onIn the event this information is protected by the Federal Confidentiality of Alcohol and Drug Abuse Patient Records regulations: The Federal rules restrict any use of the information to criminally investigate or prosecute any alcohol or drug abuse patient.[facility] [place] Reason for Visit (unrecogniz ed section and [...] TOMOGRAPHY THORAX W/CONTRAST Codey Christianson MD [address] [place] [address] Phone: tel: fax: [facility] [place] [phone] Referral ID Status Reason Start Date Expiration Date V isits Requested Visits Authorized [id number] Closed Auto-Generate d Referral 07/26/2024 08/25/2025 1 1 Reason Comments Bladder Cancer Reason Comments CASE 9822 Follow Up Reason Comments Established Patient Reason Comments Surgical Followup Orders Reason Comments CASE 9822 Discussion Reason Comments CASE 9822 Update Reason Comments Bladder Cancer Hematuria Reason Comments 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 Reason Comments New Patient [...] COMPLETE Lakeisha Dawkins, DO [address] [place] [address] Phone: tel: fax: [facility] [place] [phone] Referral ID Status Reason Start Date Expiration Date V isits Requested Visits Authorized [id number] Closed Auto-Generate d Referral 09/05/2024 10/05/2025 [address] Specialty Diagnoses / Procedures Referred By Contac t Referred To Contact CT [facility]AG[facility] Diagnoses Malignant neoplasm of urinary bladder, unspecified site (HCC) Other hydronephrosis Procedures CT ABD/PEL WO IVCON CT ABD & PELVIS W/O CONTRAST Stacy Gauthier MD [address] [place] [address] Phone: tel: fax: [facility] [place] [phone] Referral ID Status Reason Start Date Expiration Date V isits Requested Visits Authorized [id number] Closed Auto-Generate d Referral 09/04/2024 09/20/2025 1 1 Reason Comments Opened In Error Reason Comments Chemotherapy Treatment Specialty Diagnoses / Procedures Referred By Contac t Referred To Contact Diagnoses Malignant neoplasm of urinary bladder, unspecified site (HCC) Lakeisha Dawkins DO [address] [place] [address] Phone: tel: fax: Hematology/Oncology [address] [place] [address] Phone: tel: fax: Referral ID Status Reason Start Date Expiration Date V isits Requested Visits Authorized [id number] Authorized 09/17/2024 12/16/2024 99 99 Reason Comments Radiotherapy On-treatment Visit Reason Comments Care Coordination CYCLE 1/DAY 1 POST T REATMENT CALL Reason Comments Non-Chemotherapy Treatment Reason Comments CADD Pump D/C Reason Comments Blood Draw (CVAD) Reason Comments PICC Line Reason Comments Established Patient Reason Comments Patient Education Discharge teaching-c ompleted radiation Care Teams (unrecognized sec tion and content) Director Writing Relationship Specialty Start Date End Date Padmini Carrasco MD [address] [place] [address] [id number] PCP - General Family Practice 01/24/19 Director Writing Relationship Specialty Start Date End Date Padmini Carrasco MD [address] [place] [address] [id number] PCP - General Family Medicine 01/24/19 Director Writing Relationship Specialty Start Date End Date Padmini Carrasco MD [address], [place] [id number] PCP - General Family Medicine 01/24/19 Director Writing Relationship Specialty Start Date End Date Padmini Carrasco MD [address], [place] [id number] PCP - General Family Medicine 01/24/19 Director Writing Relationship Specialty Start Date End Date Padmini Carrasco MD [address] [place] [address] PCP - General Family Medicine 01/24/19 Team Status: Active Member Role Status Dates Dr. Ezekiel Carrasco MD Family Provider Active Dr. Ezekiel Carrasco MD Primary Care Provider Activ e Team Status: Inactive Member Role Status Dates Dr. Ezekiel Carrasco MD Primary Care Provider, Refe rring Provider Active Tc Subramanian MINE MOTOR ENGINEER, MINE MOTOR ENGINEER-C Attending Provider Active Team Status: Active Member [...] Primary Care Provider Activ e Tc Subramanian MINE MOTOR ENGINEER, MINE MOTOR ENGINEER-C Attending Provider, Referring Pro vider Active Team Status: Inactive Member Role Status Dates Dr. Ezekiel Carrasco MD Primary Care Provider Activ e Sherry hAn NP-C Attending Provider, Referring Pr ovider Active [...] Provider, Refe rring Provider Active Carmina Tee MINE MOTOR ENGINEER, MINE MOTOR ENGINEER-C Attending Provider Active Team Status: Active Member Role Status Dates Dr. Ezekiel Carrasco MD Primary Care Provider Activ e Tc Subramanian MINE MOTOR ENGINEER, MINE MOTOR ENGINEER-C Attending Provider Active Team Status: Active Member [...] Primary Care Provider Activ e Tc Subramanian MINE MOTOR ENGINEER, MINE MOTOR ENGINEER-C Attending Provider, Referring Pro vider Active Team Status: Inactive Member Role Status Dates Dr. Ezekiel Carrasco MD Primary Care Provider Activ e Tonia Biedenharn PA, PA Attending Provider Active Tc Subramanian MINE MOTOR ENGINEER, MINE MOTOR ENGINEER-C Referring Provider Active Team Status: Active Member [...] Primary Care Provider Activ e Tc Subramanian MINE MOTOR ENGINEER, MINE MOTOR ENGINEER-C Attending Provider Active Team Status: Active Member Role Status Dates Dr. Ezekiel Carrasco MD Primary Care Provider Activ e Dr. Kwame Alex MD Attending Provider Active Tonia Bivalenteenharn PA, PA Referring Provider Active Team Status: Active Member Role Status Dates Dr. Ezekiel Carrasco MD Primary Care Provider Activ e Carmina Tee MINE MOTOR ENGINEER, MINE MOTOR ENGINEER-C Referring Provider, Other Pr ovider Active Dr. Noe Suarez MD Attending Provider Active Team Status: Active Member Role Status Dates Dr. Ezekiel Carrasco MD Primary Care Provider Activ e Carmina Tee MINE MOTOR ENGINEER, MINE MOTOR ENGINEER-C Attending Provider, Referrin g Provider Active Team Status: Inactive Member Role Status Dates Dr. Ezekiel Carrasco MD Primary Care Provider Activ e Tonia Bivalenteenhkobi PA, PA Attending Provider Active Team Status: Inactive Member Role Status Dates Dr. Ezekiel Carrasco MD Primary Care Provider Activ e Carmina Tee MINE MOTOR ENGINEER, MINE MOTOR ENGINEER-C Attending Provider, Referrin g Provider Active Team Status: Inactive Member Role Status Dates Dr. Ezekiel Carrasco MD Primary Care Provider, Refe rring Provider Active Isela Kwok PA, PA Attending Provider Active Team Status: Active Member Role Status Dates Dr. Ezekiel Carrasco MD Primary Care Provider Activ e Carmina Tee MINE MOTOR ENGINEER, MINE MOTOR ENGINEER-C Referring Provider, Other Pr ovider Active Dr. [...] MD Primary Care Provider Activ e Tonia Bivalenteenharn , PA Attending Provider, Other Prov ider Active [...] Provider, Refe rring Provider Active Farheen Alexander MINE MOTOR ENGINEER, MINE MOTOR ENGINEER-C Attending Provider Active Team Status: Active Member Role Status Dates Dr. Ezekiel Carrasco MD Primary Care Provider Activ e Dr. Kwame Alex MD Attending Provider Active KALPANA Danielson Referring Provider Active Team Status: Inactive Member Role Status Dates Dr. Ezekiel Carrasco MD Primary Care Provider Activ e Farheen Alexander MINE MOTOR ENGINEER, MINE MOTOR ENGINEER-C Attending Provider, Referring P carrillo Active Team Status: Active Member Role Status Dates Dr. Ezekiel Carrasco MD Primary Care Provider Activ e Farheen Alexander MINE MOTOR ENGINEER, MINE MOTOR ENGINEER-C Attending Provider Active Team Status: Active Member Role Status Dates Dr. Padmini Carrasco MD Family Provider Active Dr. Padmini Carrasco MD Primary Care Provider Acti ve Team Status: Inactive Member Role Status Dates Dr. Padmini Carrasco MD Primary Care Provider Acti ve Start: January 18, 2024 End: January 18, 2024 Dr. Ana Barillas MD Attending Provider Active Start: January 18, 2024 End: January 18, 2024 Dr. Ana Barillas MD Referring Provider Active Start: January 18, 2024 End: January 18, 2024 Team Status: Active Member Role Status Dates Dr. Padmini Carrasco MD Primary Care Provider Acti ve Start: January 18, 2024 Dr. Ana Barillas MD Attending Provider Active Start: January 18, 2024 Dr. Ana Barillas MD Referring Provider Active Start: January 18, 2024 Dr. Ana Barillas MD Other Provider Active Start: January 18, 2024 Team Status: Inactive Member Role Status Dates Dr. Padmini Carrasco MD Primary Care Provider Acti ve Start: February 02, 2024 End: February 02, 2024 Dr. Padmini Carrasco MD Referring Provider Active Start: February 02, 2024 End: February 02, 2024 Dr. Ana Barillas MD Attending Provider Active Start: February 02, 2024 End: February 02, 2024 Team Status: Inactive Member Role Status Dates Dr. Padmini Carrasco MD Primary Care Provider Acti ve Start: February 21, 2024 End: February 21, 2024 Carmina Tee MINE MOTOR ENGINEER, MINE MOTOR ENGINEER-C Attending Provider Active Start: February 21, 2024 End: February 21, 2024 Carmina Tee MINE MOTOR ENGINEER, MINE MOTOR ENGINEER-C Referring Provider Active Start: February 21, 2024 End: February 21, 2024 Team Status: Inactive Member Role Status Dates Dr. Padmini Carrasco MD Primary Care Provider Acti ve Start: March 23, 2024 End: March 23, 2024 Dr. Padmini Carrasco MD Referring Provider Active Start: March 23, 2024 End: March 23, 2024 Carmina Tee MINE MOTOR ENGINEER, MINE MOTOR ENGINEER-C Attending Provider Active Start: March 23, 2024 [...] 2024 End: May 17, 2024 Dr. Jeffery Andes , DO Emergency Provider Active Start: May 16, [...] July 09, 2024 End: July 09, 2024 Director Writing Relationship Specialty Start Date End Date Padmini Carrasco MD [address] [facility] [place] [address] PCP - General Family Medicine 01/24/19 Jose J Winston MD [address] [place] [address] [place] [address] Referring Urology 07/19/24 Director Writing Relationship Specialty Start Date End Date Padmini Carrasco MD [address] [facility] [place], [place] [id number] PCP - General Family Medicine 01/24/19 Jose J Winston MD [address] [place] [address] [place] [address] Referring Urology 07/19/24 Director Writing Relationship Specialty Start Date End Date Padmini Carrasco MD [address] [facility] [place] [address] PCP - General Family Medicine 01/24/19 Jose J Winston MD [address] [place] [address] [place], [place] [address] Referring Urology 07/19/24 Director Writing Relationship Specialty Start Date End Date Padmini Carrasco MD [address] [facility] [place], [place] [address] PCP - General Family Medicine 01/24/19 Jose J Winston MD [address] [place] [address] [place], [place] [id number] Referring Urology 07/19/24 Director Writing Relationship Specialty Start Date End Date Padmini Carrasco MD [address] [facility] [place], [place] [address] PCP - General Family Medicine 01/24/19 Jose J Winston MD [address] [place] [address], [place] [address] Referring Urology 07/19/24 Director Writing Relationship Specialty Start Date End Date Padmini Carrasco MD [address] [facility] [place], [place] [id number] PCP - General Family Medicine 01/24/19 Jose J Winston MD [address] [place] [address] [place] [address] Referring Urology 07/19/24 Director Writing Relationship Specialty Start Date End Date Padmini Carrasco MD [address] [facility], [place] [phone] PCP - General Family Medicine 01/24/19 Jose J Winston MD [address] [address] [place] [address] Referring Urology 07/19/24 Karen Post, RN Specialty Supercharge Repair Supervisor Hematology/Oncology 08/06/24 Director Writing Relationship Specialty Start Date End Date Padmini Carrasco MD [address] [place] [address] PCP - General Family Medicine 01/24/19 Jose J Winston MD [address] [address] [place] [address] Referring Urology 07/19/24 Karen Post, ANGELA Specialty Supercharge Repair Supervisor Hematology/Oncology 08/06/24 Director Writing Relationship Specialty Start Date End Date Padmini Carrasco MD [address] [place] [address] PCP - General Family Medicine 01/24/19 Jose J Winston MD [address] [address] [place] [address] Referring Urology 07/19/24 Karen Post, RN Specialty Supercharge Repair Supervisor Hematology/Oncology 08/06/24 Director Writing Relationship Specialty Start Date End Date Padmini Carrasco MD [address] [place] [address] PCP - General Family Medicine 01/24/19 Jose J Winston MD [address] [address] [place] [address] Referring Urology 07/19/24 Karen Post, RN Specialty Supercharge Repair Supervisor Hematology/Oncology 08/06/24 Director Writing Relationship Specialty Start Date End Date Padmini Carrasco MD [address] [place] [address] PCP - General Family Medicine 01/24/19 Jose J Winston MD [address] [place] [address] [id number] Referring Urology 07/19/24 Karen Post, RN Specialty Supercharge Repair Supervisor Hematology/Oncology 08/06/24 Director Writing Relationship Specialty Start Date End Date Padmini Carrasco MD [address] [place] [id number] PCP - General Family Medicine 01/24/19 Jose J Winston MD [address] [place] [address] [phone] Referring Urology 07/19/24 Karen Post, RN Specialty Supercharge Repair Supervisor Hematology/Oncology 08/06/24 Team Status: Active Member Role/Relationship [...] 2024 End: August 30, 2024 Farheen Alexander MINE MOTOR ENGINEER, MINE MOTOR ENGINEER-C Attending Provider Active Start: August 30, 2024 End: August 30, 2024 Director Writing Relationship Specialty Start Date End Date Padmini Carrasco MD [address] [facility] [place] [address] PCP - General Family Medicine 01/24/19 Jose J Winston MD [address] [place] [address] Referring Urology 07/19/24 Karen Post RN Specialty Supercharge Repair Supervisor Hematology/Oncology 08/06/24 Stacy Gauthier MD [address] [place] [address] Physician Urology 09/05/24 Director Writing Relationship Specialty Start Date End Date Padmini Carrasco MD [address] [place], [place] [address] [place] [address] PCP - General Family Medicine 01/24/19 Jose J Winston MD [address] [place] [address] Referring Urology 07/19/24 Karen Post RN Specialty Supercharge Repair Supervisor Hematology/Oncology 08/06/24 Stacy Gauthier MD [address] [place] [address] Physician Urology 09/05/24 Director Writing Relationship Specialty Start Date End Date Padmini Carrasco MD [address] [place] [address] PCP - General Family Medicine 01/24/19 Jose J Winston MD [address] [place] [address] Referring Urology 07/19/24 Karen Post, ANGELA Specialty Supercharge Repair Supervisor Hematology/Oncology 08/06/24 Stacy Gauthier MD [address] [place] [address] Physician Urology 09/05/24 Luigi Banks MD [address] [facility] [place] [place] [address] Physician Radiation Oncology 09/06/24 Director Writing Relationship Specialty Start Date End Date Padmini Carrasco MD [address] [facility] [place] [address] PCP - General Family Medicine 01/24/19 Jose J Winston MD [address] [place] [address] Referring Urology 07/19/24 Karen Post, ANGELA Specialty Supercharge Repair Supervisor Hematology/Oncology 08/06/24 Stacy Gauthier MD [address] [place] [address] Physician Urology 09/05/24 Luigi Banks MD [address] [place] [address] Physician Radiation Oncology 09/06/24 Director Writing Relationship Specialty Start Date End Date Padmini Carrasco MD [address] [place] [address] PCP - General Family Medicine 01/24/19 Jose J Winston MD [address] [place] [address] Referring Urology 07/19/24 Karen Post, ANGELA Specialty Supercharge Repair Supervisor Hematology/Oncology 08/06/24 Stacy Gauthier MD [address] [place] [address] Physician Urology 09/05/24 Luigi Banks MD [address] [place] [address] Physician Radiation Oncology 09/06/24 Director Writing Relationship Specialty Start Date End Date Padmini Carrasco MD [address] [facility] [place] [address] PCP - General Family Medicine 01/24/19 Jose J Winston MD [address] [place] [address] Referring Urology 07/19/24 Karen Post, ANGELA Specialty Supercharge Repair Supervisor Hematology/Oncology 08/06/24 Stacy Gauthier MD [address] [place] [address] Physician Urology 09/05/24 Luigi Banks MD [address] [place] [address] Physician Radiation Oncology 09/06/24 Director Writing Relationship Specialty Start Date End Date Padmini Carrasco MD [address] [place] [address] PCP - General Family Medicine 01/24/19 Jose J Winston MD [address] [place] [address] [place] [address] Referring Urology 07/19/24 Karen Post, ANGELA Specialty Supercharge Repair Supervisor Hematology/Oncology 08/06/24 Stacy Gauthier MD [address] [place] [address] Physician Urology 09/05/24 Luigi Banks MD [address] [place] [address] Physician Radiation Oncology 09/06/24 Matthew Gu RN Specialty Supercharge Repair Supervisor Oncology 09/12/24 Lakeisha Dawkins DO [address] [place] [address] Hematology/Oncology 09/12/24 Antoni Polk LISW [address] [place] [address] Headline Writer Hematology/Oncology 09/12/24 Director Writing Relationship Specialty Start Date End Date Padmini Carrasco MD [address] [place] [address] PCP - General Family Medicine 01/24/19 Jose J Winston MD [address] [address] [place] [address] Referring Urology 07/19/24 Karen Post RN Specialty Supercharge Repair Supervisor Hematology/Oncology 08/06/24 Stacy Gauthier MD [address] [facility] [place] [address] Physician Urology 09/05/24 Luigi Banks MD [address] [place] [address] Physician Radiation Oncology 09/06/24 Matthew Gu RN Specialty Supercharge Repair Supervisor Oncology 09/12/24 Lakeisha Dawkins DO [address] [place] [address] Hematology/Oncology 09/12/24 Antoni Polk LISW [address] [place] [address] Headline Writer Hematology/Oncology 09/12/24 Director Writing Relationship Specialty Start Date End Date Padmini Carrasco MD [address] [place] [address] PCP - General Family Medicine 01/24/19 Jose J Winston MD [address] [place] [address] Referring Urology 07/19/24 Karen Post RN Specialty Supercharge Repair Supervisor Hematology/Oncology 08/06/24 Stacy Gauthier MD [address] [place] [address] Physician Urology 09/05/24 Luigi Banks MD [address] [place] [address] Physician Radiation Oncology 09/06/24 Matthew Gu RN Specialty Supercharge Repair Supervisor Oncology 09/12/24 Lakeisha Dawkins DO [address] [place] [address] Hematology/Oncology 09/12/24 Antoni Polk LISW [address] [place] [address] Headline Writer Hematology/Oncology 09/12/24 Director Writing Relationship Specialty Start Date End Date Padmini Carrasco MD [address] [place] [address] PCP - General Family Medicine 01/24/19 Jose J Winston MD [address] [place] [address], [place] [address] Referring Urology 07/19/24 Karen Post RN Specialty Supercharge Repair Supervisor Hematology/Oncology 08/06/24 Stacy Gauthier MD [address] [place] [address] Physician Urology 09/05/24 Luigi Banks MD [address] [place] [address] Physician Radiation Oncology 09/06/24 Matthew Gu RN Specialty Supercharge Repair Supervisor Oncology 09/12/24 Lakeisha Dawkins DO [address] [place] [address] Hematology/Oncology 09/12/24 Antoni Polk LISW [address] [place] [address] Headline Writer Hematology/Oncology 09/12/24 Director Writing Relationship Specialty Start Date End Date Padmini Carrasco MD [address] [place] [address] PCP - General Family Medicine 01/24/19 Jose J Winston MD [address] [address] [place] [address] Referring Urology 07/19/24 Karen Post, RN Specialty Supercharge Repair Supervisor Hematology/Oncology 08/06/24 Stacy Gauthier MD [address] [place] [address] Physician Urology 09/05/24 Luigi Banks MD [address] [place] [address] Physician Radiation Oncology 09/06/24 Matthew uG RN Specialty Supercharge Repair Supervisor Oncology 09/12/24 Lakeisha Dawkins DO [address] [place] [address] Hematology/Oncology 09/12/24 Antoni Polk LISW [address] [place] [address] Headline Writer Hematology/Oncology 09/12/24 Director Writing Relationship Specialty Start Date End Date Padmini Carrasco MD [address] [place] [address] PCP - General Family Medicine 01/24/19 Jose J Winston MD [address] [address] [place] [address] Referring Urology 07/19/24 aKren Post, ANGELA Specialty Supercharge Repair Supervisor Hematology/Oncology 08/06/24 Stacy Gauthier MD [address] [place] [address] Physician Urology 09/05/24 Luigi Banks MD [address] [place] [address] Physician Radiation Oncology 09/06/24 Matthew Gu, RN Specialty Supercharge Repair Supervisor Oncology 09/12/24 Lakeisha Dawkins DO [address] [place] [address] Hematology/Oncology 09/12/24 Antoni Polk LISW [address] [place] [address] Headline Writer Hematology/Oncology 09/12/24 Director Writing Relationship Specialty Start Date End Date Padmini Carrasco MD [address] [place] [address] PCP - General Family Medicine 01/24/19 Jose J Winston MD [address] [place] [address], [place] [address] Referring Urology 07/19/24 Karen Post, ANGELA Specialty Supercharge Repair Supervisor Hematology/Oncology 08/06/24 Stacy Gauthier MD [address] [place] [address] Physician Urology 09/05/24 Luigi Banks MD [address] [place] [address] Physician Radiation Oncology 09/06/24 Matthew Gu, RN Specialty Supercharge Repair Supervisor Oncology 09/12/24 Lakeisha Dawkins DO [address] [place] [address] Hematology/Oncology 09/12/24 Antoni Polk LISW [address] [place] [address] Headline Writer Hematology/Oncology 09/12/24 Director Writing Relationship Specialty Start Date End Date Padmini Carrasco MD [address] [place] [address] PCP - General Family Medicine 01/24/19 Jose J Winston MD [address] [place] [address] [place], [place] [address] Referring Urology 07/19/24 Karen Post, ANGELA Specialty Supercharge Repair Supervisor Hematology/Oncology 08/06/24 Stacy Gauthier MD [address] [place] [address] Physician Urology 09/05/24 Luigi Banks MD [address] [place] [address] Physician Radiation Oncology 09/06/24 Matthew Gu RN Specialty Supercharge Repair Supervisor Oncology 09/12/24 Lakeisha Dawkins DO [address] [place] [address] Hematology/Oncology 09/12/24 Antoni Polk LISW [address] [place] [address] Headline Writer Hematology/Oncology 09/12/24 Director Writing Relationship Specialty Start Date End Date Padmini Carrasco MD [address] [place] [address] PCP - General Family Medicine 01/24/19 Jose J Winston MD [address] [place] [address] [place] [address] Referring Urology 07/19/24 Karen Post, ANGELA Specialty Supercharge Repair Supervisor Hematology/Oncology 08/06/24 Stacy Gauthier MD [address] [place] [address] Physician Urology 09/05/24 Luigi Banks MD [address] [place] [address] Physician Radiation Oncology 09/06/24 Matthew Gu, ANGELA Specialty Supercharge Repair Supervisor Oncology 09/12/24 Lakeisha Dawkins DO [address] [place], [place] [address] Hematology/Oncology 09/12/24 Antoni Polk LISW [address] [place] [address] Headline Writer Hematology/Oncology 09/12/24 Team Status: Inactive Member Role/Relationship [...] 2024 End: August 30, 2024 Farheen Alexander MINE MOTOR ENGINEER, MINE MOTOR ENGINEER-C Attending Provider Active Start: August 30, 2024 [...] September 21, 2024 End: September 21, 2024 Director Writing Relationship Specialty Start Date End Date Padmini Carrasco MD [address] [place] [id number] PCP - General Family Medicine 01/24/19 Jose J Winston MD [address] [place] [address] Referring Urology 07/19/24 Karen Post, RN Specialty Supercharge Repair Supervisor Hematology/Oncology 08/06/24 Stacy Gauthier MD [address] [place] [address] Physician Urology 09/05/24 Luigi Banks MD [address] [place] [facility] [place] [address] Physician Radiation Oncology 09/06/24 Matthew Gu RN Specialty Supercharge Repair Supervisor Oncology 09/12/24 Lakeisha Dawkins DO [address] [place] [address] Hematology/Oncology 09/12/24 Antoni Polk LISW [address] [facility] [place] [address] Headline Writer Hematology/Oncology 09/12/24 Director Writing Relationship Specialty Start Date End Date Padmini Carrasco MD [address] [place] [address] PCP - General Family Medicine 01/24/19 Jose J Winston MD [address] [place] [address] Referring Urology 07/19/24 Karen Post, ANGELA Specialty Supercharge Repair Supervisor Hematology/Oncology 08/06/24 Stacy Gauthier MD [address] [place] [facility] [place] [address] Physician Urology 09/05/24 Luigi Banks MD [address] [place] [address] Physician Radiation Oncology 09/06/24 Matthew Gu, RN Specialty Supercharge Repair Supervisor Oncology 09/12/24 Lakeisha Dawkins DO [address] [place] [address] Hematology/Oncology 09/12/24 Antoni Polk LISW [address] [place] [address] Headline Writer Hematology/Oncology 09/12/24 Director Writing Relationship Specialty Start Date End Date Padmini Carrasco MD [address] [place] [address] PCP - General Family Medicine 01/24/19 Jose J Winston MD [address] [place] [address] [place] [address] Referring Urology 07/19/24 Karen Post, ANGELA Specialty Supercharge Repair Supervisor Hematology/Oncology 08/06/24 Stacy Gauthier MD [address] [place] [address] Physician Urology 09/05/24 Luigi Banks MD [address] [place] [address] Physician Radiation Oncology 09/06/24 Matthew Gu, RN Specialty Supercharge Repair Supervisor Oncology 09/12/24 Lakeisha Dawkins DO [address] [place] [address] Hematology/Oncology 09/12/24 Antoni Polk LISW [address] [place] [address] Headline Writer Hematology/Oncology 09/12/24 Director Writing Relationship Specialty Start Date End Date Padmini Carrasco MD [address] [place] [address] PCP - General Family Medicine 01/24/19 Jose J Winston MD [address] [place] [address] Referring Urology 07/19/24 Karen Post, ANGELA Specialty Supercharge Repair Supervisor Hematology/Oncology 08/06/24 Stacy Gauthier MD [address] [place] [address] Physician Urology 09/05/24 Luigi Banks MD [address] [place] [place] [address] Physician Radiation Oncology 09/06/24 Matthew Gu RN Specialty Supercharge Repair Supervisor Oncology 09/12/24 Lakeisha Dawkins DO [address] [facility] [place] [address] Hematology/Oncology 09/12/24 Antoni Polk LISW [address] [facility] [place] [address] Headline Writer Hematology/Oncology 09/12/24 Director Writing Relationship Specialty Start Date End Date Padmini Carrasco MD [address] [place] [address] PCP - General Family Medicine 01/24/19 Jose J Winston MD [address] [place] [address] Referring Urology 07/19/24 Karen Post, ANGELA Specialty Supercharge Repair Supervisor Hematology/Oncology 08/06/24 Stacy Gauthier MD [address] [place] [facility] [place] [address] Physician Urology 09/05/24 Luigi Banks MD [address] [place] [address] Physician Radiation Oncology 09/06/24 Matthew Gu RN Specialty Supercharge Repair Supervisor Oncology 09/12/24 Lakeisha Dawkins DO [address] [place] [address] Hematology/Oncology 09/12/24 Anotni Polk LISW [address] [place] [address] Headline Writer Hematology/Oncology 09/12/24 Director Writing Relationship Specialty Start Date End Date Padmini Carrasco MD [address] [place] [address] PCP - General Family Medicine 01/24/19 Jose J Winston MD [address] [place] [address], [place] [address]80[address] Referring Urology 07/19/24 Karen Post RN Specialty Supercharge Repair Supervisor Hematology/Oncology 08/06/24 Stacy Gauthier MD [address] [place] [address] Physician Urology 09/05/24 Luigi Banks MD [address] [place] [address] Physician Radiation Oncology 09/06/24 Matthew Gu, ANGELA Specialty Supercharge Repair Supervisor Oncology 09/12/24 Lakeisha Dawkins DO [address] [place] [address] Hematology/Oncology 09/12/24 Antoni Polk LISW [address] [place] [address] Headline Writer Hematology/Oncology 09/12/24 Director Writing Relationship Specialty Start Date End Date Padmini Carrasco MD [address] [place] [address] PCP - General Family Medicine 01/24/19 Jose J Winston MD [address] [place] [address] [place] [address] Referring Urology 07/19/24 Karen Post, ANGELA Specialty Supercharge Repair Supervisor Hematology/Oncology 08/06/24 Stacy Gauthier MD [address] [place] [address] Physician Urology 09/05/24 Luigi Banks MD [address] [place] [address] Physician Radiation Oncology 09/06/24 Matthew Gu RN Specialty Supercharge Repair Supervisor Oncology 09/12/24 Lakeisha Dawkins DO [address] [place] [address] Hematology/Oncology 09/12/24 Antoni Polk LISW [address] [place] [address] Headline Writer Hematology/Oncology 09/12/24 Director Writing Relationship Specialty Start Date End Date Padmini Carrasco MD [address] [place] [address] PCP - General Family Medicine 01/24/19 Jose J Winston MD [address] [address] [place] [address] Referring Urology 07/19/24 Karen Post, ANGELA Specialty Supercharge Repair Supervisor Hematology/Oncology 08/06/24 Stacy Gauthier MD [address] [place] [address] Physician Urology 09/05/24 Luigi Banks MD [address] [facility] [place] [place] [address] Physician Radiation Oncology 09/06/24 Matthew Gu RN Specialty Supercharge Repair Supervisor Oncology 09/12/24 Lakeisha Dawkins DO [address] [facility], [place] [address] Hematology/Oncology 09/12/24 Antoni Polk LISW [address] [facility] [place] [address] Headline Writer Hematology/Oncology 09/12/24 Team Status: Active Member Role/Relationship Status Dates Dr. Padmini Carrasco MD Primary care physician Act satish Team Status: Inactive Member Role/Relationship Status Dates Dr. Padmini Carrasco MD Primary care physician Act satish Start: August 30, 2024 End: August 30, 2024 Dr. Padmini Carrasco MD Referring Provider Active Start: August 30, 2024 End: August 30, 2024 Farheen Alexander MINE MOTOR ENGINEER, MINE MOTOR ENGINEER-C Attending physician Active Start: August 30, 2024 [...] November 07, 2024 End: November 07, 2024 DrTruong Pena DO Emergency Department Physician Active Start: [...] 2024 End: November 07, 2024 Summer Grande NP-C Nurse Practitioner Active S tart: November 07, 2024 End: November 07, 2024 xOana Camarillo MINE MOTOR ENGINEER-C Nurse Practitioner Active Start: November 07, 2024 End: November 07, 2024 KALPANA Ramirez Nurse Practitioner Active Start: November 07, 2024 End: November 07, 2024 Dr. Chung Armstrong MD Nurse Practitioner Active Start: November [...] 07, 2024 Dr. Juan M Beltran , Nurse Practitioner Active Start: November 07, [...] Physician Active Start: November 07, 2024 Dr. Kamlseh Floyd DO Nurse Practitioner Active Start: November [...] End: November 07, 2024 Summer Grande , MINE MOTOR ENGINEER-C Nurse Practitioner Active S tart: November 07, 2024 End: November 07, 2024 Oxana Camarillo MINE MOTOR ENGINEER-C Nurse Practitioner Active Start: November 07, 2024 End: November 07, 2024 KALPANA Ramirez Nurse Practitioner Active Start: November 07, 2024 End: November 07, 2024 Dr. Chung Armstrong MD Nurse Practitioner Active Start: November [...] Start: November 07, 2024 Dr. Con Pena , DO Emergency Department Physician Active Start: November 07, 2024 Dr. Kamlesh Floyd , DO Nurse Practitioner Active Start: November 07, 2024 Dr. Suzanne Medley MD Attending physician Active Start: November 07, 2024 Dr. Suzanne Medley MD Nurse Practitioner Active Start: November 07, 2024 Team Status: Inactive Member Role/Relationship Status Dates Dr. Padmini Carrasco MD Primary care physician Act satish Start: November 15, 2024 End: November 15, 2024 Dr. Padmini Carrasco MD Attending physician Active Start: November 15, 2024 End: November 15, 2024 Team Status: Inactive Member Role/Relationship Status Dates Dr. Padmini Carrasco MD Primary care physician Act satish Start: November 18, 2024 End: November 21, 2024 Dr. Jeffery Turpin , DO Emergency Departme nt Physician Active Start: November 18, 2024 End: November 21, 2024 Dr. Chet Valdivia , DO Admitting physician Active Start: November 18, 2024 End: November 21, 2024 Dr. Chet Valdivia , DO Nurse Practitioner Active Start: November 18, 2024 End: November 21, 2024 Dr. Derrell Fonseca MD Nurse Practitioner Active Start: November 18, 2024 End: November 21, 2024 Dr. Kamlesh Floyd , Nurse Practitioner Active Start: November 18, 2024 End: November 21, 2024 TOÑO Reddy Nurse Practitioner Active S tart: November 18, 2024 End: November 21, 2024 TOÑO Zeng Nurse Practitioner Active Start: November 18, 2024 End: November 21, 2024 KALPANA Ramirez Nurse Practitioner Active Start: November 18, 2024 End: November 21, 2024 Dr. Pradip Pichardo , DO Attending physician Active Start: November 18, 2024 End: November 21, 2024 Team Status: Active Member Role/Relationship Status Dates Dr. Padmini Carrasco MD Primary care physician Act satish Start: November 18, 2024 Dr. Jeffery Turpin , DO Emergency Departme nt Physician Active Start: November 18, 2024 Dr. Chet Valdivia , DO Attending physician Activ e Start: November 18, 2024 Team Status: Active Member Role/Relationship Status Dates Dr. Padmini Carracso MD Primary care physician Act satish Start: November 19, 2024 Dr. Jeffery Turpin , DO Emergency Departme nt Physician Active Start: November 19, 2024 Dr. Chet Valdivia , DO Admitting physician Active Start: November 19, 2024 Dr. Chet Valdivia , DO Nurse Practitioner Active Start: November 19, 2024 Dr. Derrell Fonseca MD Referring Provider Active Start: November 19, 2024 Dr. Derrell Fonseca MD Nurse Practitioner Active Start: November 19, 2024 Dr. Kamlesh Floyd DO Attending physician Active Start: November 19, 2024 Dr. Kamlesh Floyd , DO Nurse Practitioner Active Start: November 19, 2024 TOÑO Reddy Nurse Practitioner Active S tart: November 19, 2024 TOÑO Zeng Nurse Practitioner Active Start: November 19, 2024 KALPANA Ramirez Nurse Practitioner Active Start: November 19, 2024 Dr. Pradip Pichardo , Nurse Practitioner Active Start: November 19, 2024 Team Status: Active Member Role/Relationship Status Dates Dr. Padmini Carrasco MD Primary care physician Act satish Start: November 19, 2024 Dr. Jeffery Turpin , DO Emergency Departme nt Physician Active Start: November 19, 2024 Dr. Chet Valdivia , DO Admitting physician Active Start: November 19, 2024 Dr. Chet Valdivia , DO Nurse Practitioner Active Start: November 19, 2024 Dr. Derrell Fonseca MD Nurse Practitioner Active Start: November 19, 2024 Dr. Kamlesh Floyd , DO Nurse Practitioner Active Start: November 19, 2024 Summer Grande NP-C Nurse Practitioner Active S tart: November 19, 2024 SUZANNE ZengC Nurse Practitioner Active Start: November 19, 2024 KALPANA Ramirez Nurse Practitioner Active Start: November 19, 2024 Dr. Pradip Pichardo , DO Attending physician Active Start: November 19, 2024 Dr. Pradip Pichardo , Nurse Practitioner Active Start: November 19, 2024 Team Status: Active Member Role/Relationship Status Dates Dr. Padmini Carrasco MD Primary care physician Act satish Start: November 20, 2024 Dr. Jeffery Turpin , DO Emergency Departme nt Physician Active Start: November 20, 2024 Dr. Chet Valdivia , DO Admitting physician Active Start: November 20, 2024 Dr. Chet Valdivia , DO Nurse Practitioner Active Start: November 20, 2024 Dr. Derrell Fonseca MD Nurse Practitioner Active Start: November 20, 2024 Dr. Kamlesh Floyd , Nurse Practitioner Active Start: November 20, 2024 Summer Grande NP-C Nurse Practitioner Active S tart: November 20, 2024 Oxana Camarillo NP-C Nurse Practitioner Active Start: November 20, 2024 KALPANA Ramirez Nurse Practitioner Active Start: November 20, 2024 Dr. Pradip Pichardo , Attending physician Active Start: November 20, 2024 Dr. Pradip Pichardo , Nurse Practitioner Active Start: November 20, 2024 Team Status: Inactive Member Role/Relationship Status Dates Dr. Padmini Carrasco MD Primary care physician Act satish Start: November 23, 2024 End: November 23, 2024 Dr. Juan Marie , Attending physician Active Start: November 23, 2024 End: November 23, 2024 Dr. Juan Marie , DO Emergency Departmen t Physician Active Start: November 23, 2024 End: November 23, 2024 Team Status: Active Member Role/Relationship Status Dates Dr. Padmini Carrasco MD Primary care physician Act satish Start: November 23, 2024 Dr. Jeffery Turpin , DO Emergency Departme nt Physician Active Start: November 23, 2024 Dr. Chet Valdivia , DO Admitting physician Active Start: November 23, 2024 Dr. Chet Valdivia , DO Nurse Practitioner Active Start: November 23, 2024 Dr. Derrell Fonseca MD Nurse Practitioner Active Start: November 23, 2024 Dr. Kamlesh Floyd , DO Nurse Practitioner Active Start: November 23, 2024 TOÑO Reddy Nurse Practitioner Active S tart: November 23, 2024 TOÑO Zeng Nurse Practitioner Active Start: November 23, 2024 KALPANA Ramirez Nurse Practitioner Active Start: November 23, 2024 Dr. Pradip Pichardo , DO Attending physician Active Start: November 23, 2024 Dr. Pradip Pichardo , DO Nurse Practitioner Active Start: November 23, 2024 Team Status: Active Member Role/Relationship Status Dates Dr. Padmini Carrasco MD Primary care physician Act satish Start: November 15, 2024 Dr. Padmini Carrasco MD Attending physician Active Start: November 15, 2024 Team Status: Active Member Role/Relationship Status Dates Dr. Padmini Carrasco MD Primary care physician Act satish Start: November 19, 2024 Dr. Jeffery Turpin , DO Emergency Departme nt Physician Active Start: November 19, 2024 Dr. Chet Valdivia , DO Admitting physician Active Start: November 19, 2024 Dr. Chet Valdivia , DO Nurse Practitioner Active Start: November 19, 2024 Dr. Derrell Fonseca MD Nurse Practitioner Active Start: November 19, 2024 Dr. Kamlesh Floyd , DO Attending physician Active Start: November 19, 2024 Dr. Kamlesh Floyd , DO Nurse Practitioner Active Start: November 19, 2024 SUZANNE ReddyC Nurse Practitioner Active S tart: November 19, 2024 SUZANNE ZengC Nurse Practitioner Active Start: November 19, 2024 KALPANA Ramirez Nurse Practitioner Active Start: November 19, 2024 Dr. Pradip Pichardo , Nurse Practitioner Active Start: November 19, 2024 Goals (unrecognized section and content) Goals [...] ized section and content) DATE CREATED AUTHOR 12/13/2024 [facility] DATE CREATED AUTHOR AUTHOR'S ORGANIZ ATION 12/18/2024 [facility] DATE CREATED AUTHOR AUTHOR'S ORGANIZ ATION 12/19/2024 [facility] FOR RECORDS PERTAINING TO PATIENTS WHO [...] BE BASED ON THE PRIMARY CLINICAL RECORDS. [employer] [facility]. provides no warranty or guarantee of the accuracy or completeness of information in this document.
[2024-12-20 22:24] LABS: Hematocrit 20.1 % (40-54); Hemoglobin 6.5 g/dL (13.0-16.5); Immature Granulocytes Count 0.060 X10^3/uL (0.0-0.0); Mean Corp Hgb Conc 32.3 g/dL (32-36); Mean Corpuscular Volume 94.4 fL (80-94); Mean Platelet Vol. 9.7 fl (6.2-12.0); NRBC Flagged by Analyzer 0.2 % (0-5); Platelet Count 134 K/mm3 (150-450); RBC Distribution Width CV 16.0 % (11.6-14.6); RBC Distribution Width SD 53.7 fl (35.1-43.9); Red Blood Count 2.13 M/mm3 (4.6-6.2); White Blood Count 8.1 K/mm3 (4.4-11.0)
[2024-12-20 22:36] LABS: Prothrombin Time (Protime)PT. 15.1 SECONDS (11.7-14.9)
[2024-12-20 22:37] LABS: Partial Thromboplast Time 24.4 Seconds (24.1-36.2)
[2024-12-20] MEDS: Pantoprazole Sodium 80 MG in 0.9% Normal Saline (50mL Bag) 15 ML 420 MG IV BOLUS (22:43)
[2024-12-20] MEDS: Pantoprazole Sodium 80 MG in 0.9% Normal Saline (100mL Bag) 80 ML 10 MG CONT INF (22:44)
[2024-12-20 22:53] LABS: AST(SGOT) 13 U/L (<=37); Alanine Aminotransfer ALT/SGPT 8 U/L (<=46); Albumin, Serum 2.8 g/dL (3.4-4.8); Alkaline Phosphatase 46 U/L (40-129); Anion Gap 13 (5-15); BUN 62 mg/dL (4-19); BUN/Creat Ratio 44.6 RATIO (10-20); Calcium,Total 7.6 mg/dL (7.6-11.0); Carbon Dioxide 18.6 mmol/L (21.0-32.0); Chloride 106 mmol/L (98-108); Estimated Creatinine Clearance 40.99 ml/min (50-250); Globulin 1.8 g/dL (2.2-4.2); Glucose 223 mg/dL (70-99); Lipase 43 U/L (13-75); Potassium 5.0 mmol/L (3.3-5.1)
--- NOTE | 2024-12-20 23:10 | CT_ITS ---
EXAM: CTA ABD/PELVIS W/WO CONTRAST CLINICAL HISTORY: GI BLEED COMPARISON: No relevant comparison studies are available for review. TECHNIQUE: CT angiogram of the chest, abdomen and pelvis were performed was before and after administration of 100 ml of Omnipaque 350 was administered intravenously. Images were sent to MIP postprocessing was performed in multiple planes. Automatic exposure control was utilized for this scan. Preoperative planning for transcatheter aortic valvular replacement. CONTRAST: 100 cc of Isovue 370 FINDINGS: Stable appearance of the irregular diffuse fusiform infrarenal abdominal aortic aneurysm extending of the bilateral common iliac arteries. The aneurysm measures up to 4.6 cm in diameter at the midabdomen and is filled with dense calcified and noncalcified plaque. There is no evidence of dissection. The celiac artery, superior mesenteric and inferior mesenteric arteries are patent. No contrast extravasation is seen to suggest an active source of GI bleed. Renal arteries are patent. The right common iliac artery measures 2.5 cm in the left common iliac artery measures 2.2 cm. Dense calcified and noncalcified plaque formation of the visualized iliac arteries bilaterally, which remain grossly patent. There are no focal consolidation, pleural effusion or pneumothorax. There are no mediastinal, hilar or axillary lymphadenopathy. Liver parenchyma is unremarkable. There are no ductal dilatation or discrete mass seen. Gallbladder is unremarkable. There are no gallstones. Pancreas is unremarkable. The spleen is nonenlarged. Scattered splenic calcifications likely sequelae of prior infection. There are no adrenal glands mass. Kidneys enhance symmetrically without hydronephrosis. No cystic mass seen. No solid mass evident. Redemonstrated marked wall thickening of the bladder with surrounding fat stranding. Evaluation of the bowel loops are limited due to lack of oral contrast. There is no evidence of bowel obstruction or acute appendicitis. There is no free air or free fluid. No lymphadenopathy. Small fat containing left inguinal hernia. Osseous structures are intact. CT/CTA Abd/Pelvis W/WO Contrast IMPRESSION: 1. Extensive infrarenal abdominal aortic aneurysm measuring 4.6 cm. No dissect ion or rupture. 2. 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 3. Grossly patent celiac and mesenteric arterial branches with no contrast ext ravasation to suggest a source of active GI bleed. 4. Stable marked wall thickening of the bladder with surrounding fat stranding which may be related to infection/inflammation, or from known neoplasm with posttreatment changes. [facility]
[2024-12-21] VITALS: BP 82/70; PULSE 84; RESP 18; O2SAT 100
--- NOTE | 2024-12-21 00:30 | ED.RN ---
Per Dr. Hastings start second unit of blood while the first one is still running.
[2024-12-21 00:45] VITALS: BP 110/70; PULSE 80; RESP 17; TEMP 36.5; O2SAT 100
[2024-12-21 01:00] VITALS: BP 106/61; PULSE 82; RESP 20; TEMP 36.5; O2SAT 100
--- NOTE | 2024-12-21 01:02 | ED.RN ---
Per Dr. Hastings run blood wide open d/t transport coming soon.
[2024-12-21 01:12] VITALS: BP 119/68; PULSE 74; RESP 16; TEMP 36.6; O2SAT 100
[2024-12-21 01:27] VITALS: BP 119/68; PULSE 74; RESP 16; TEMP 36.6; O2SAT 100
== END 2024-12-21 01:30 | disposition short-term general hospital (02) ==
PROVIDERS: Emergency Provider Emergency Medicine; PCP Family Medicine; Visit Provider Emergency Medicine
DX: K92.2 Gastrointestinal hemorrhage, unspecified (principal); J44.9 Chronic obstructive pulmonary disease, unspecified; N18.32 Chronic kidney disease, stage 3b; R55 Syncope and collapse; D64.9 Anemia, unspecified; I12.9 Hypertensive chronic kidney disease with stage 1 through stage 4 chronic kidney disease, or unspecified chronic kidney disease; E78.00 Pure hypercholesterolemia, unspecified; I25.10 Atherosclerotic heart disease of native coronary artery without angina pectoris; Z87.891 Personal history of nicotine dependence; Z79.51 Long term (current) use of inhaled steroids; Z95.1 Presence of aortocoronary bypass graft
CPT/HCPCS: 74174; 80053; 83690; 85025; 85610; 85730; 86850; 86900; 86901; 96365; 96366; 99285; P9016; Q9967; A4216

== ENCOUNTER → 2025-01-15 | Outpatient (CLI) | payer MEDICARE, SELFPAY ==
[2025-01-15 12:41] LABS: Hematocrit 36.8 % (40-54); Hemoglobin 11.3 g/dL (13.0-16.5); Immature Granulocytes Count 0.010 X10^3/uL (0.0-0.0); Mean Corp Hgb Conc 30.7 g/dL (32-36); Mean Corpuscular Volume 96.6 fL (80-94); Mean Platelet Vol. 9.1 fl (6.2-12.0); NRBC Flagged by Analyzer 0 % (0-5); Platelet Count 202 K/mm3 (150-450); RBC Distribution Width CV 15.0 % (11.6-14.6); RBC Distribution Width SD 53.4 fl (35.1-43.9); Red Blood Count 3.81 M/mm3 (4.6-6.2); White Blood Count 5.1 K/mm3 (4.4-11.0)
[2025-01-15 12:55] LABS: AST(SGOT) 20 U/L (<=37); Alanine Aminotransfer ALT/SGPT 9 U/L (<=46); Albumin, Serum 3.8 g/dL (3.4-4.8); Alkaline Phosphatase 75 U/L (40-129); Anion Gap 13 (5-15); BUN 24 mg/dL (4-19); BUN/Creat Ratio 18.3 RATIO (10-20); Calcium,Total 9.3 mg/dL (7.6-11.0); Carbon Dioxide 25.6 mmol/L (21.0-32.0); Chloride 101 mmol/L (98-108); Globulin 2.9 g/dL (2.2-4.2); Glucose 90 mg/dL (70-99); Potassium 4.7 mmol/L (3.3-5.1)
== END | disposition home or self-care (01) ==
LOC: MFPLAB 09:48
PROVIDERS: PCP Family Medicine; Visit Provider Family Medicine
DX: N18.9 Chronic kidney disease, unspecified (principal); D64.9 Anemia, unspecified
CPT/HCPCS: 36415; 80053; 85025